=== PATIENT | female | born 1970 | race Caucasian/White ===

== ENCOUNTER 2019-06-26 08:22 | Outpatient (RCR) | payer MEDICARE, MEDICAID, SELFPAY | END 2019-07-07 00:01 | LOC: WOUND 08:22 | PROVIDERS: Family Provider Family Medicine; Visit Provider Surgery | DX: I96 Gangrene, not elsewhere classified (principal); L89.304 Pressure ulcer of unspecified buttock, stage 4 | CPT/HCPCS: 11042; 11044; 36415; 80048; 80053; 82550 ×2; 85025; 87070 ×2; 87075; 87077; 87106 ×2; 87176; 87186; 87205 ×2; 97605; G0463 ==

== ENCOUNTER 2019-07-10 08:04 | Outpatient (RCR) | payer MEDICARE, MEDICAID, SELFPAY | END 2019-08-07 23:59 | disposition home or self-care (01) | LOC: WOUND 08:04 | PROVIDERS: Family Provider Family Medicine; PCP Family Medicine; Visit Provider Surgery | DX: Z76.89 Persons encountering health services in other specified circumstances (principal) ==

== ENCOUNTER 2019-07-15 17:00 | Outpatient (CLI) | payer MEDICARE, MEDICAID, SELFPAY ==
[2019-07-15 21:48] LABS: Urine Appearance Turbid (CLEAR); Urine Color Brown (Yellow)
[2019-07-15 21:49] LABS: Add Urine Microscopic? YES; Bilirubin Urine Neg (NEGATIVE); Blood Urine 2+ (Negative); Glucose Urine UA Norm (Normal); Ketones Urine 1+ (Negative); Leukocyte Esterase Urine 2+ (Negative); Nitrate Urine Positive (Negative); Protein Urine Neg (Negative); Specific Gravity, Urine 1.015 (1.005-1.030); Sulfosalicylic Acid Urine Positive; Urobilinogen Urine Norm (Negative); pH Urine 8 (5-7)
[2019-07-15 22:11] LABS: RBC Urine 25-40 /hpf (0-2); WBC Urine 25-40 /hpf (0-5)
[2019-07-15 22:12] LABS: Add Urine Culture? Yes; Amorphous Sediment Urine 4+; Bacteria Urine 4+; Mucus Urine 1+; Squamous Epithelial Cell Urine 0-4 (0-5); Triple Phosphate Crystal Urine 40-55 /hpf
== END 2019-07-15 17:01 | disposition home or self-care (01) ==
LOC: LAB 17:02
PROVIDERS: Family Provider Family Medicine; PCP Family Medicine; Visit Provider Urology
DX: N39.0 Urinary tract infection, site not specified (principal)
CPT/HCPCS: 81003; 87077; 87086; 87186

== ENCOUNTER 2019-07-20 08:23 | Outpatient (CLI) | payer MEDICARE, MEDICAID, SELFPAY ==
--- NOTE | 2019-07-20 08:27 | CT_ITS ---
WS: [id number] CT pelvis TECHNIQUE: Contrast-enhanced CT of the pelvis with coronal and sagittal reformatted images. CLINICAL INFORMATION: PRESSURE ULCER, PAIN, OSTEOMYLITIS COMPARISON: CT 10 18,019 DLP: 1367.[address] scans at [facility] use at least one of these dose optimization techniques: automat ed exposure control; mA and/or kV adjustment per patient size (includes targeted exams where dose is matched to clinical indication); or iterative reconstruction. FINDINGS: Exam limited due to body habitus. Suprapubic catheter. Since the prior exam there appears to be interval coccyx resection at the sacral coccygeal junction w ith air and fluid along the surgical tract. Air and fluid collection in the surgical defect measuring 6.2 x 3.2 x 6.1 CCM. Distal aspect of the residual sacrum appears intact with mild irregularity whic h may be postoperative versus early osteomyelitis. Recommend interval follow-up to assess for healing . No other significant changes. Large left spigelian hernia containing multiple loops of small and lar ge bowel without obstruction. Patulous ventral abdominal wall containing loops of nonobstructed bowel . IVC filter. Grade 1 anterolisthesis L5 on S1 with bilateral spondylolysis. IMPRESSION: 1. Interval coccyx resection since the prior examination at the sacrococcygeal junction. 2. Fluid collection along the incision resection cavity containing fluid and air measuring 6.2 x 3.2 x 6.1 cm may be postoperative versus developing abscess. 3. Minimal irregularity at the remaining distal aspect of the sacrum likely postoperative. Recommend interval follow-up to assess for healing and to exclude early osteomyelitis.
[2019-07-20] MEDS: iohexol 300 mg/mL 50 mL Btl IV (08:33)
[2019-07-20] MEDS: iohexol 300 mg/mL 100 mL Btl IV (11:10)
== END 2019-07-20 08:24 | disposition home or self-care (01) ==
PROVIDERS: Family Provider Family Medicine; PCP Family Medicine; Visit Provider Surgery
DX: M86.9 Osteomyelitis, unspecified (principal); L89.90 Pressure ulcer of unspecified site, unspecified stage; R10.2 Pelvic and perineal pain
CPT/HCPCS: 72193

== ENCOUNTER 2019-08-07 08:01 | Outpatient (RCR) | payer MEDICARE, MEDICAID, SELFPAY | END 2019-08-07 23:59 | disposition home or self-care (01) | LOC: WOUND 08:01 | PROVIDERS: Family Provider Family Medicine; PCP Family Medicine; Visit Provider Surgery | DX: I96 Gangrene, not elsewhere classified (principal); L89.304 Pressure ulcer of unspecified buttock, stage 4 | CPT/HCPCS: 11043; 11044; 11046; 11047; 87070; 87077; 87176; 87186; 87205 ==

== ENCOUNTER 2019-09-04 07:59 | Outpatient (RCR) | payer MEDICARE, MEDICAID, SELFPAY | END 2019-09-05 23:59 | disposition home or self-care (01) | LOC: WOUND 07:59 | PROVIDERS: Family Provider Family Medicine; PCP Family Medicine; Visit Provider Surgery | DX: I96 Gangrene, not elsewhere classified (principal); L89.304 Pressure ulcer of unspecified buttock, stage 4 | CPT/HCPCS: 11044; 11047 ==

== ENCOUNTER 2019-10-02 08:05 | Outpatient (RCR) | payer MEDICARE, MEDICAID, SELFPAY | END 2019-10-06 23:59 | disposition home or self-care (01) | LOC: WOUND 08:05 | PROVIDERS: Family Provider Family Medicine; PCP Family Medicine; Visit Provider Surgery | DX: I96 Gangrene, not elsewhere classified (principal); L89.304 Pressure ulcer of unspecified buttock, stage 4 | CPT/HCPCS: 11044; 11047 ==

== ENCOUNTER 2019-10-30 08:03 | Outpatient (RCR) | payer MEDICARE, MEDICAID, SELFPAY | END 2019-11-05 23:59 | disposition home or self-care (01) | LOC: WOUND 08:03 | PROVIDERS: Family Provider Family Medicine; PCP Family Medicine; Visit Provider Surgery | DX: I96 Gangrene, not elsewhere classified (principal); L89.304 Pressure ulcer of unspecified buttock, stage 4 | CPT/HCPCS: 11044 ==

== ENCOUNTER 2019-11-13 08:01 | Outpatient (CLI) | payer MEDICARE, MEDICAID, SELFPAY | END 2019-11-13 08:02 | disposition home or self-care (01) | LOC: WOUND 08:02 | PROVIDERS: Family Provider Family Medicine; PCP Family Medicine; Visit Provider Surgery | DX: I96 Gangrene, not elsewhere classified (principal); L89.304 Pressure ulcer of unspecified buttock, stage 4 | CPT/HCPCS: 11043 ==

== ENCOUNTER 2019-11-18 11:10 | Outpatient (CLI) | payer MEDICARE, MEDICAID, SELFPAY ==
[2019-11-18 18:13] LABS: Anion Gap 12.9 (5-19); Blood Urea Nitrogen 14 mg/dL (6-20); Calcium 9.7 mg/dL (8.5-10.5); Carbon Dioxide 25 mmol/L (22-29); Chloride 103 mmol/L (98-107); Glomerular Filtration Rate 88.2 mL/min (90-130); Glucose 82 mg/dL (65-115); Osmolality Calculated 279 mOsm/kg (285-295); Potassium 3.9 mmol/L (3.5-5.1); Sodium 137 mmol/L (136-145)
[2019-11-18 18:14] LABS: Prealbumin 14.7 mg/dL (20-40)
== END 2019-11-18 11:11 | disposition home or self-care (01) ==
PROVIDERS: PCP Family Medicine; Visit Provider Surgery
DX: I10 Essential (primary) hypertension (principal); L89.94 Pressure ulcer of unspecified site, stage 4
CPT/HCPCS: 80048; 84134

== ENCOUNTER 2019-11-20 07:54 | Outpatient (CLI) | payer MEDICARE, MEDICAID, SELFPAY | END 2019-11-20 07:55 | disposition home or self-care (01) | LOC: WOUND 07:56 | PROVIDERS: PCP Family Medicine; Visit Provider Surgery | DX: I96 Gangrene, not elsewhere classified (principal); L89.304 Pressure ulcer of unspecified buttock, stage 4 | CPT/HCPCS: 11043 ==

== ENCOUNTER 2019-11-27 08:03 | Outpatient (CLI) | payer MEDICARE, MEDICAID, SELFPAY | END 2019-11-27 08:04 | disposition home or self-care (01) | LOC: WOUND 08:06 | PROVIDERS: PCP Family Medicine; Visit Provider Surgery | DX: I96 Gangrene, not elsewhere classified (principal); L89.304 Pressure ulcer of unspecified buttock, stage 4 | CPT/HCPCS: 11044 ==

== ENCOUNTER 2019-12-11 07:54 | Outpatient (CLI) | payer MEDICARE, MEDICAID, SELFPAY | END 2019-12-11 07:55 | disposition home or self-care (01) | LOC: WOUND 07:56 | PROVIDERS: PCP Family Medicine; Visit Provider Surgery | DX: I96 Gangrene, not elsewhere classified (principal); L89.314 Pressure ulcer of right buttock, stage 4 | CPT/HCPCS: 11044 ==

== ENCOUNTER 2019-12-18 08:22 | Outpatient (CLI) | payer MEDICARE, MEDICAID, SELFPAY | END 2019-12-18 08:23 | disposition home or self-care (01) | LOC: WOUND 08:30 | PROVIDERS: PCP Family Medicine; Visit Provider Nurse Practitioner Family | DX: I96 Gangrene, not elsewhere classified (principal); L89.304 Pressure ulcer of unspecified buttock, stage 4 | CPT/HCPCS: 11044 ==

== ENCOUNTER 2019-12-25 08:10 | Outpatient (CLI) | payer MEDICARE, MEDICAID, SELFPAY | END 2019-12-25 08:11 | disposition home or self-care (01) | LOC: WOUND 08:13 | PROVIDERS: PCP Family Medicine; Visit Provider Surgery | DX: L89.154 Pressure ulcer of sacral region, stage 4 (principal) | CPT/HCPCS: 11043 ==

== ENCOUNTER 2020-01-01 08:26 | Outpatient (CLI) | payer MEDICARE, MEDICAID, SELFPAY | END 2020-01-01 08:27 | disposition home or self-care (01) | LOC: WOUND 08:31 | PROVIDERS: PCP Family Medicine; Visit Provider Surgery | DX: I96 Gangrene, not elsewhere classified (principal); L89.304 Pressure ulcer of unspecified buttock, stage 4 | CPT/HCPCS: 11043 ==

== ENCOUNTER 2020-01-04 | Outpatient (RCR) | payer MEDICARE, MEDICAID, SELFPAY | END 2020-01-04 23:00 | disposition home or self-care (01) | LOC: SOT | PROVIDERS: PCP Family Medicine; Referring Provider Surgery; Visit Provider Surgery | DX: L89.154 Pressure ulcer of sacral region, stage 4 (principal) | CPT/HCPCS: 97166 ==

== ENCOUNTER 2020-01-15 07:58 | Outpatient (CLI) | payer MEDICARE, MEDICAID, SELFPAY | END 2020-01-15 07:59 | disposition home or self-care (01) | LOC: WOUND 08:03 | PROVIDERS: PCP Family Medicine; Visit Provider Surgery | DX: I96 Gangrene, not elsewhere classified (principal); L89.304 Pressure ulcer of unspecified buttock, stage 4 | CPT/HCPCS: 11043 ==

== ENCOUNTER 2020-01-22 07:52 | Outpatient (CLI) | payer MEDICARE, MEDICAID, SELFPAY | END 2020-01-22 07:53 | disposition home or self-care (01) | LOC: WOUND 07:52 | PROVIDERS: PCP Family Medicine; Visit Provider Surgery | DX: I96 Gangrene, not elsewhere classified (principal); L89.304 Pressure ulcer of unspecified buttock, stage 4 | CPT/HCPCS: 11043 ==

== ENCOUNTER 2020-01-29 07:55 | Outpatient (CLI) | payer MEDICARE, MEDICAID, SELFPAY | END 2020-01-29 07:56 | disposition home or self-care (01) | LOC: WOUND 08:00 | PROVIDERS: PCP Family Medicine; Visit Provider Surgery | DX: I96 Gangrene, not elsewhere classified; L89.154 Pressure ulcer of sacral region, stage 4 | CPT/HCPCS: 11043 ==

== ENCOUNTER 2020-02-12 08:08 | Outpatient (CLI) | payer MEDICARE, MEDICAID, SELFPAY | END 2020-02-12 08:09 | disposition home or self-care (01) | LOC: WOUND 08:10 | PROVIDERS: PCP Family Medicine; Visit Provider Thoracic Surgery (Cardiothoracic Vascular Surgery) | DX: L89.154 Pressure ulcer of sacral region, stage 4 (principal) | CPT/HCPCS: 11042 ==

== ENCOUNTER 2020-02-19 08:07 | Outpatient (CLI) | payer MEDICARE, MEDICAID, SELFPAY | END 2020-02-19 08:08 | disposition home or self-care (01) | LOC: WOUND 08:08 | PROVIDERS: PCP Family Medicine; Visit Provider Surgery | DX: L89.154 Pressure ulcer of sacral region, stage 4 (principal) | CPT/HCPCS: 11043 ==

== ENCOUNTER 2020-02-26 07:53 | Outpatient (CLI) | payer MEDICARE, MEDICAID, SELFPAY | END 2020-02-26 07:54 | disposition home or self-care (01) | LOC: WOUND 07:55 | PROVIDERS: PCP Family Medicine; Visit Provider Surgery | DX: L89.154 Pressure ulcer of sacral region, stage 4 (principal) | CPT/HCPCS: 11043 ==

== ENCOUNTER 2020-03-11 08:15 | Outpatient (CLI) | payer MEDICARE, MEDICAID, SELFPAY | END 2020-03-11 08:16 | disposition home or self-care (01) | LOC: WOUND 08:16 | PROVIDERS: PCP Family Medicine; Visit Provider Surgery | DX: L89.154 Pressure ulcer of sacral region, stage 4 (principal) | CPT/HCPCS: 11043 ==

== ENCOUNTER 2020-03-18 08:20 | Outpatient (CLI) | payer MEDICARE, MEDICAID, SELFPAY | END 2020-03-18 08:21 | disposition home or self-care (01) | LOC: WOUND 08:21 | PROVIDERS: PCP Family Medicine; Visit Provider Surgery | DX: L89.154 Pressure ulcer of sacral region, stage 4 (principal) | CPT/HCPCS: 11043 ==

== ENCOUNTER 2020-03-24 11:01 | Outpatient (CLI) | payer MEDICARE, MEDICAID, SELFPAY ==
--- NOTE | 2020-03-24 | CT_ITS ---
WS: [id number] CT pelvis TECHNIQUE: Contrast-enhanced CT of the pelvis with coronal and sagittal reformatted images. CLINICAL INFORMATION: PRESSURE ULCER COMPARISON: CT pelvis July 20, 2019 DLP: 766.[address] scans at [facility] use at least one of these dose optimization techniques: automat ed exposure control; mA and/or kV adjustment per patient size (includes targeted exams where dose is matched to clinical indication); or iterative reconstruction. FINDINGS: Prior postoperative changes coccyx resection at the sacrococcygeal junction. Previously described air and fluid collection along the surgical cavity is slightly smaller today but persistent. This measur es 2.8 x 5.6 x 4.1 cm with associated air and fluid most compatible with abscess. Previously this liborio sured 3.2 x 6.2 x 6.1 cm Surrounding soft tissue thickening with a thickened capsule. Sinus tract ext ending to the skin is similar in appearance. Progressed sclerosis and irregularity involving the distal aspect of the sacrum suspicious for osteom yelitis. This involves the tip of the residual sacrum. No other significant interval changes. Stable large left Spigelian hernia containing multiple loops o f bowel without obstruction. Patulous ventral abdominal wall containing loops of nonobstructed bowel unchanged. IVC filter. Grade 1 anterolisthesis L5 on S1 with bilateral spondylolysis. Normal perirect al soft tissues. Surgical clips in the pelvis. Suprapubic catheter. Fatty atrophy of the pancreas. Pr ominent common bile duct normal post cholecystectomy. CT/CT pelvis w con* [id number] IMPRESSION: 1. Prior postoperative changes resection of the coccyx at the sacrococcygeal j unction. 2. Persistent but improved fluid collection with air pockets at the incision c avity today measuring 2.8 x 5.6 x 4.1 cm slightly improved from previous. Thick ened surrounding capsule has progressed from previous. Findings likely represen t small abscess. 3. Increased sclerosis involving distal aspect of the residual sacrum suspicio us for osteomyelitis. 4. Otherwise no significant changes from previous.
[2020-03-24] MEDS: iohexol 300 mg/mL 100 mL Btl IV (11:40)
== END 2020-03-24 11:02 | disposition home or self-care (01) ==
LOC: RADWPI 11:03
PROVIDERS: PCP Family Medicine; Visit Provider Surgery
DX: L89.899 Pressure ulcer of other site, unspecified stage (principal)
CPT/HCPCS: 72193; Q9967

== ENCOUNTER 2020-03-25 08:09 | Outpatient (CLI) | payer MEDICARE, MEDICAID, SELFPAY | END 2020-03-25 08:10 | disposition home or self-care (01) | LOC: WOUND 08:10 | PROVIDERS: PCP Family Medicine; Visit Provider Nurse Practitioner Family | DX: L89.154 Pressure ulcer of sacral region, stage 4 (principal) | CPT/HCPCS: 11042 ==

== ENCOUNTER 2020-04-01 07:58 | Outpatient (CLI) | payer MEDICARE, MEDICAID, SELFPAY | END 2020-04-01 07:59 | disposition home or self-care (01) | LOC: WOUND 07:59 | PROVIDERS: PCP Family Medicine; Visit Provider Surgery | DX: L89.154 Pressure ulcer of sacral region, stage 4 (principal) | CPT/HCPCS: 11043 ==

== ENCOUNTER 2020-04-08 08:12 | Outpatient (CLI) | payer MEDICARE, MEDICAID, SELFPAY | END 2020-04-08 08:13 | disposition home or self-care (01) | LOC: WOUND 08:13 | PROVIDERS: PCP Family Medicine; Visit Provider Surgery | DX: L89.154 Pressure ulcer of sacral region, stage 4 (principal) | CPT/HCPCS: 11043 ==

== ENCOUNTER 2020-04-15 08:11 | Outpatient (CLI) | payer MEDICARE, MEDICAID, SELFPAY | END 2020-04-15 08:12 | disposition home or self-care (01) | LOC: WOUND 08:12 | PROVIDERS: PCP Family Medicine; Visit Provider Surgery | DX: L89.154 Pressure ulcer of sacral region, stage 4 (principal) | CPT/HCPCS: 11043 ==

== ENCOUNTER 2020-04-22 08:16 | Outpatient (CLI) | payer MEDICARE, MEDICAID, SELFPAY | END 2020-04-22 08:17 | disposition home or self-care (01) | LOC: WOUND 08:16 | PROVIDERS: PCP Family Medicine; Visit Provider Surgery | DX: L89.154 Pressure ulcer of sacral region, stage 4 (principal) | CPT/HCPCS: 11043 ==

== ENCOUNTER 2020-04-29 08:07 | Outpatient (CLI) | payer MEDICARE, MEDICAID, SELFPAY | END 2020-04-29 08:08 | disposition home or self-care (01) | LOC: WOUND 08:08 | PROVIDERS: PCP Family Medicine; Visit Provider Surgery | DX: L89.154 Pressure ulcer of sacral region, stage 4 (principal) | CPT/HCPCS: 11043 ==

== ENCOUNTER 2020-05-03 06:58 | Outpatient (CLI) | payer MEDICARE, MEDICAID, SELFPAY ==
--- NOTE | 2020-05-03 07:21 | CT_ITS ---
WS: [id number] CT ABDOMEN AND PELVIS WITH rectal CONTRAST HISTORY: NONHEALING ULCER TECHNIQUE: Imaging performed of the abdomen and pelvis with rectal contrast. Single phase imaging of the abdomen. Coronal and sagittal reformats are submitted. All CT scans at [facility] us e at least one of these dose optimization techniques: automated exposure control; mA and/or kV adjust ment per patient size (includes targeted exams where dose is matched to clinical indication); or iter ative reconstruction. IV CONTRAST: None Oral contrast: None. Rectal contrast given. DLP: 2717.38 mGy.cm COMPARISON: 03/24/2020 Lower thorax: Lung bases are clear. Mildly enlarged heart. Small hiatal hernia. Liver/biliary system: Again noted is the exophytic cyst from the LEFT lobe of the liver measuring 1.8 cm. Gallbladder: Prior cholecystectomy. Pancreas: Mild atrophy. Spleen: Normal. Adrenal glands: Normal. Right kidney: Normal. Left kidney: Normal. Aorta: Normal. IVC filter. Lymphadenopathy: None. Free fluid: None. GI tract: Large abdominal wall hernia on the LEFT is unchanged. LEFT lower quadrant ostomy is also pr esent but not included on this examination. No GI tract obstruction. Pelvis: Rectal contrast has been provided via rectal tube to evaluate for possible fistula between th e rectum and the sacral ulcer. There is no communication noted. No contrast extends into the sacral u lceration an abscess collection. The abscess collection measures 6.4 x 5.8 x 4.6 cm and abuts the pos terior sacrum. There is increased density within the sacrum from prior surgery and healed episodes of osteomyelitis. As compared to the most recent examination there has been no interval change. Bones: Sclerotic changes in the remaining sacrum from healed osteomyelitis. CT/CT abdomen pelvis w con* [id number] IMPRESSION: 1. No fistulous communication between the rectum and the sacral decubitus ulce r. 2. Soft tissue ulceration over the posterior sacrum measures 6.4 x 5.8 x 4.6 c m without obvious progression since 03/24/2020. 3. Sclerotic changes in the residual sacrum from healed osteomyelitis.
[2020-05-03] MEDS: iohexol 300 mg/mL 100 mL Btl XX (09:35)
== END 2020-05-03 06:59 | disposition home or self-care (01) ==
LOC: RAD 07:02
PROVIDERS: PCP Family Medicine; Visit Provider Surgery
DX: N30.20 Other chronic cystitis without hematuria (principal); M86.60 Other chronic osteomyelitis, unspecified site; L89.159 Pressure ulcer of sacral region, unspecified stage
CPT/HCPCS: 74177

== ENCOUNTER 2020-05-06 08:10 | Outpatient (CLI) | payer MEDICARE, MEDICAID, SELFPAY | END 2020-05-06 08:11 | disposition home or self-care (01) | LOC: WOUND 08:11 | PROVIDERS: PCP Family Medicine; Visit Provider Surgery | DX: L89.154 Pressure ulcer of sacral region, stage 4 (principal) | CPT/HCPCS: 11043 ==

== ENCOUNTER 2020-05-20 08:10 | Outpatient (CLI) | payer MEDICARE, MEDICAID, SELFPAY | END 2020-05-20 08:11 | disposition home or self-care (01) | LOC: WOUND 08:10 | PROVIDERS: PCP Family Medicine; Visit Provider Surgery | DX: L89.154 Pressure ulcer of sacral region, stage 4 (principal) | CPT/HCPCS: 11043 ==

== ENCOUNTER 2020-05-27 08:19 | Outpatient (CLI) | payer MEDICARE, MEDICAID, SELFPAY | END 2020-05-27 08:20 | disposition home or self-care (01) | LOC: WOUND 08:20 | PROVIDERS: PCP Family Medicine; Visit Provider Surgery | DX: L89.154 Pressure ulcer of sacral region, stage 4 (principal) | CPT/HCPCS: 11043 ==

== ENCOUNTER 2020-06-07 09:20 | Outpatient (CLI) | payer MEDICARE, MEDICAID, SELFPAY ==
[2020-06-07] MEDS: iohexol 300 mg/mL 100 mL Btl IV (09:47)
--- NOTE | 2020-06-07 10:00 | CT_ITS ---
WS: [id number] CT pelvis TECHNIQUE: Contrast-enhanced CT of the pelvis with coronal and sagittal reformatted images. CLINICAL INFORMATION: chronic osteomyelitis COMPARISON: Multiple prior examinations including CT abdomen pelvis June 03, 2020, CT pelvis Sept and July 2019. DLP: 1194.[address] scans at [facility] use at least one of these dose optimization techniques: automat ed exposure control; mA and/or kV adjustment per patient size (includes targeted exams where dose is matched to clinical indication); or iterative reconstruction. FINDINGS: Prior postoperative changes coccyx resection at the sacrococcygeal junction. Previously described air and fluid collection along the surgical cavity is slightly smaller today but persistent. This measur es 3.1 x 5.1 x 5.6 cm. Previously this measured 6.4 x 5.8 x 4.6 cm. Surrounding soft tissue thickenin g with a thickened capsule. Sclerotic changes within the sacral tip from chronic osteomyelitis. This is similar in appearance to the prior exam. No other significant interval changes. Stable large left Spigelian hernia containing multiple loops o f bowel without obstruction. Patulous ventral abdominal wall containing loops of nonobstructed bowel unchanged. IVC filter. Grade 1 anterolisthesis L5 on S1 with bilateral spondylolysis. Normal perirect al soft tissues. Surgical clips in the pelvis. Suprapubic catheter. Fatty atrophy of the pancreas. Pr ominent common bile duct normal post cholecystectomy. CT/CT pelvis w con* [id number] IMPRESSION: 1. Soft tissue ulceration consistent with chronic abscess along the posterior sacrum is smaller today measuring 3.1 x 5.1 x 5.6 cm. 2. Stable sclerosis in the tip of the sacrum consistent with chronic osteomye litis. 3. No other significant interval changes.
== END 2020-06-07 09:21 | disposition home or self-care (01) ==
PROVIDERS: PCP Family Medicine; Visit Provider Student in an Organized Health Care Education/Training Program
DX: M86.60 Other chronic osteomyelitis, unspecified site (principal); L98.499 Non-pressure chronic ulcer of skin of other sites with unspecified severity
CPT/HCPCS: 72193

== ENCOUNTER 2020-06-10 08:11 | Outpatient (CLI) | payer MEDICARE, MEDICAID, SELFPAY | END 2020-06-10 08:12 | disposition home or self-care (01) | LOC: WOUND 08:12 | PROVIDERS: PCP Family Medicine; Visit Provider Surgery | DX: L89.154 Pressure ulcer of sacral region, stage 4 (principal) | CPT/HCPCS: 11043 ==

== ENCOUNTER 2020-06-17 08:16 | Outpatient (CLI) | payer MEDICARE, MEDICAID, SELFPAY | END 2020-06-17 08:17 | disposition home or self-care (01) | LOC: WOUND 08:17 | PROVIDERS: PCP Family Medicine; Visit Provider Surgery | DX: L89.154 Pressure ulcer of sacral region, stage 4 (principal) | CPT/HCPCS: 11043 ==

== ENCOUNTER 2020-06-24 08:24 | Outpatient (CLI) | payer MEDICARE, MEDICAID, SELFPAY | END 2020-06-24 08:25 | disposition home or self-care (01) | LOC: WOUND 08:25 | PROVIDERS: PCP Family Medicine; Visit Provider Surgery | DX: L89.154 Pressure ulcer of sacral region, stage 4 (principal) | CPT/HCPCS: 11043 ==

== ENCOUNTER 2020-07-15 07:58 | Outpatient (CLI) | payer MEDICARE, MEDICAID, SELFPAY | END 2020-07-15 07:59 | disposition home or self-care (01) | LOC: WOUND 08:00 | PROVIDERS: PCP Family Medicine; Visit Provider Surgery | DX: L89.154 Pressure ulcer of sacral region, stage 4 (principal) | CPT/HCPCS: 11043 ==

== ENCOUNTER 2020-07-22 08:05 | Outpatient (CLI) | payer MEDICARE, MEDICAID, SELFPAY | END 2020-07-22 08:06 | disposition home or self-care (01) | LOC: WOUND 08:06 | PROVIDERS: PCP Family Medicine; Visit Provider Surgery | DX: L89.154 Pressure ulcer of sacral region, stage 4 (principal) | CPT/HCPCS: 11043 ==

== ENCOUNTER 2020-07-29 08:02 | Outpatient (CLI) | payer MEDICARE, MEDICAID, SELFPAY | END 2020-07-29 08:03 | disposition home or self-care (01) | LOC: WOUND 08:04 | PROVIDERS: PCP Family Medicine; Visit Provider Surgery | DX: I96 Gangrene, not elsewhere classified (principal); L89.154 Pressure ulcer of sacral region, stage 4 | CPT/HCPCS: 11043 ==

== ENCOUNTER 2020-07-31 09:40 | Emergency (ER) | payer MEDICARE, MEDICAID, SELFPAY ==
[2020-07-31 09:48] VITALS: BP 138/81; PULSE 84; RESP 18; TEMP 36.7; O2SAT 98; BMI 49.6
--- NOTE | 2020-07-31 10:05 | ED_ITS ---
HPI - Extremity Problem General: Chief complaint: Extremity Injury, Lower Stated complaint: R foot Lac Time Seen by Provider: 07/31/20 09:46 Limitations: other (Patient is wheelchair-bound. She lacerated the bottom of her right foot while transferring this morning.) History of Present Illness: Associated symptoms: Deny chest pain or fever(s) Review of Systems General: Reports: 10 or more systems reviewed and unremarkable except in HPI and below Const: Denies: fever(s) ENMT: Denies: throat pain Card: Denies: chest pain Resp: Denies: dyspnea GI: Denies: abdominal pain Skin/Breast: Reports: other (Right foot laceration) [facility] ED PFSH: Medical History Chronic cystitis Neurogenic bladder Surgical History S/P section Suprapubic catheter Family History Family/Other Diabetes Cancer CAD (coronary artery disease) Social History Smoking and tobacco status: never smoked Alcohol intake: never Lives independently: Yes Marital status: Current occupational status: disabled History of recent travel: No Physical Exam Const: COMMON NORMALS: no acute distress Neck/C-Spine: COMMON NORMALS: no JVD Chest: COMMONS NORMALS: normal inspection of the chest, normal palpation of entire chest wall, normal inspection of the breasts and normal palpation of the breasts Breast/axilla inspection: Yes normal inspection of the breasts BREAST/AXILLA PALPATION: Yes normal palpation of the breasts Resp: COMMON NORMALS: normal respiratory effort, No retractions, No use of accessory muscles, clear to auscultation bilaterally and percussion normal AUSCULTATION: clear to auscultation bilaterally PERCUSSION: percussion normal Cardio: COMMON NORMALS: no JVD, regular rate, regular rhythm, S1 normal heart sound present, S2 normal heart sound present, No gallops present (Cardio), No clicks present (Cardio), No murmurs present (Cardio), No rub (Cardio) and Peripheral pulses 2+ throughout RATE: regular rate RHYTHM: regular rhythm HEART SOUNDS: S1 normal heart sound present and S2 normal heart sound present PERIPHERAL PULSES: Peripheral pulses 2+ throughout Skin: WOUNDS: Yes wounds noted (Patient with lacerations underneath the right third fourth and fifth digits) Course Vital Signs: Vital signs: Vital Signs Temperature 98.0 F 07/31/20 09:48 Pulse Rate 84 07/31/20 09:48 Respiratory Rate 18 07/31/20 09:48 Blood Pressure 138/81 07/31/20 09:48 Pulse Oximetry 98 07/31/20 09:48 MDM - Extremity (Nontraumatic) MDM Narrative: Medical decision making narrative: Patient with 1 cm lacerations underneath the third fourth and fifth right toes. Lacerations up under the plantar flexor surface of each toe. No active bleeding. Laceration was cleaned and closed with Dermabond. Tetanus is up-to-date. Discharge Plan Discharge Condition: Stable Prescriptions: No Action gabapentin 600 mg tablet 600 mg PO DAILY RF: 0 baclofen 20 mg tablet 20 mg PO DAILY RF: 0 Lumigan 0.01 % drops 1 drop ophthalmic (eye) DAILY RF: 0 docusate sodium 100 mg capsule 100 mg PO DAILY RF: 0 ferrous sulfate 142 mg (45 mg iron) tablet extended release 142 mg PO DAILY RF: 0 furosemide 20 mg tablet 10 mg PO QAM RF: 0 omeprazole 40 mg capsule,delayed release(DR/EC) 40 mg PO DAILY RF: 0 potassium chloride 10 mEq capsule, extended release 10 meq PO DAILY RF: 0 venlafaxine 150 mg capsule,extended release 24hr 150 mg PO DAILY RF: 0 warfarin 5 mg tablet 5 mg PO DAILY RF: 0 ciprofloxacin HCl 500 mg tablet 500 mg PO BID Qty: 28 RF: 0 fluconazole 150 mg tablet 150 mg PO Q3D Qty: 2 RF: 0 Discharge Orders: Discharge ED (Routine); Ordered 07/31/20 Ordered By: Omero Parker Referrals: Riky Boland Jr, MD [Primary Care Provider] - Discharge Diet: Usual diet Discharge Activity: Resume usual activity Coding Level of Care Code 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
--- NOTE | 2020-07-31 10:17 | PC.NURSE ---
Dermabond applied to the laceration on the right foot/toes by Dr. Parker. Dressing of telfa and kerlix applied and secured at this time by this nurse. Pt tolerated well.
[2020-07-31 10:23] VITALS: BP 142/78; PULSE 81; O2SAT 96
== END 2020-07-31 10:20 | disposition home or self-care (01) ==
PROVIDERS: Emergency Provider Emergency Medicine; PCP Family Medicine
DX: S91.114A Laceration without foreign body of right lesser toe(s) without damage to nail, initial encounter (principal); Z79.01 Long term (current) use of anticoagulants; W26.9XXA Contact with unspecified sharp object(s), initial encounter
CPT/HCPCS: 12001; 12345; 99281; 99282

== ENCOUNTER 2020-08-02 14:46 | Outpatient (CLI) | payer MEDICARE, MEDICAID, SELFPAY | END 2020-08-02 14:47 | disposition home or self-care (01) | LOC: WOUND 14:47 | PROVIDERS: PCP Family Medicine; Visit Provider Thoracic Surgery (Cardiothoracic Vascular Surgery) | DX: S91.124A Laceration with foreign body of right lesser toe(s) without damage to nail, initial encounter (principal); X58.XXXA Exposure to other specified factors, initial encounter | CPT/HCPCS: 11042 ==

== ENCOUNTER 2020-08-05 08:14 | Outpatient (CLI) | payer MEDICARE, MEDICAID, SELFPAY | END 2020-08-05 08:15 | disposition home or self-care (01) | PROVIDERS: PCP Family Medicine; Visit Provider Surgery | DX: L89.154 Pressure ulcer of sacral region, stage 4 (principal); S91.124A Laceration with foreign body of right lesser toe(s) without damage to nail, initial encounter; X58.XXXA Exposure to other specified factors, initial encounter | CPT/HCPCS: 11043 ==

== ENCOUNTER 2020-08-05 10:38 | Outpatient (CLI) | payer MEDICARE, MEDICAID, SELFPAY ==
--- NOTE | 2020-08-05 10:50 | XR_ITS ---
WS: [id number] Exam: XR foot RT min 3V* [id number] Date/Time of Exam: 08/05/2020 11:00 AM Reason For Exam: PAIN/REDNESS/NONHEALING ULCER No fracture or dislocation noted. Mild soft tissue swelling the third toe. No sign of bone destructio n. Marked osteopenia of the foot. Degenerative changes in the IP, first MP and midfoot joints. No sof t tissue foreign bodies. Plantar heel spur. XR/XR foot RT min 3V* [id number] IMPRESSION: 1. No acute fracture or bone destruction. Mild soft tissue swelling of the thir d toe. 2. Degenerative changes. Marked osteopenia.
== END 2020-08-05 10:39 | disposition home or self-care (01) ==
PROVIDERS: PCP Family Medicine; Visit Provider Surgery
DX: M79.671 Pain in right foot (principal); L53.9 Erythematous condition, unspecified; M79.89 Other specified soft tissue disorders; L97.519 Non-pressure chronic ulcer of other part of right foot with unspecified severity
CPT/HCPCS: 73630

== ENCOUNTER 2020-08-12 08:22 | Outpatient (CLI) | payer MEDICARE, MEDICAID, SELFPAY | END 2020-08-12 08:23 | disposition home or self-care (01) | LOC: WOUND 08:23 | PROVIDERS: PCP Family Medicine; Visit Provider Surgery | DX: I96 Gangrene, not elsewhere classified (principal); L89.154 Pressure ulcer of sacral region, stage 4; S91.124A Laceration with foreign body of right lesser toe(s) without damage to nail, initial encounter; X58.XXXA Exposure to other specified factors, initial encounter | CPT/HCPCS: 11043 ==

== ENCOUNTER 2020-08-26 08:09 | Outpatient (CLI) | payer MEDICARE, MEDICAID, SELFPAY | END 2020-08-26 08:10 | disposition home or self-care (01) | LOC: WOUND 08:10 | PROVIDERS: PCP Family Medicine; Visit Provider Surgery | DX: I96 Gangrene, not elsewhere classified (principal); L89.154 Pressure ulcer of sacral region, stage 4 | CPT/HCPCS: 11043 ==

== ENCOUNTER 2020-09-02 08:21 | Outpatient (CLI) | payer MEDICARE, MEDICAID, SELFPAY | END 2020-09-02 08:22 | disposition home or self-care (01) | LOC: WOUND 08:22 | PROVIDERS: PCP Family Medicine; Visit Provider Surgery | DX: I96 Gangrene, not elsewhere classified (principal); L89.154 Pressure ulcer of sacral region, stage 4 | CPT/HCPCS: 11043 ==

== ENCOUNTER 2020-09-16 07:57 | Outpatient (CLI) | payer MEDICARE, MEDICAID, SELFPAY | END 2020-09-16 07:58 | disposition home or self-care (01) | LOC: WOUND 07:58 | PROVIDERS: PCP Family Medicine; Visit Provider Surgery | DX: L89.314 Pressure ulcer of right buttock, stage 4 (principal) | CPT/HCPCS: 11042 ==

== ENCOUNTER 2020-09-23 07:52 | Outpatient (CLI) | payer MEDICARE, MEDICAID, SELFPAY | END 2020-09-23 07:53 | disposition home or self-care (01) | LOC: WOUND 07:53 | PROVIDERS: PCP Family Medicine; Visit Provider Nurse Practitioner Family | DX: L89.154 Pressure ulcer of sacral region, stage 4 (principal) | CPT/HCPCS: 11042 ==

== ENCOUNTER 2020-09-30 08:00 | Outpatient (CLI) | payer MEDICARE, MEDICAID, SELFPAY | END 2020-09-30 08:01 | disposition home or self-care (01) | LOC: WOUND 08:01 | PROVIDERS: PCP Family Medicine; Visit Provider Surgery | DX: I96 Gangrene, not elsewhere classified (principal); L89.314 Pressure ulcer of right buttock, stage 4 | CPT/HCPCS: 11043 ==

== ENCOUNTER → 2020-10-05 15:57 | Outpatient (BNVA) | payer MEDICARE, MEDICAID, SELFPAY | PROVIDERS: PCP Family Medicine; Visit Provider Surgery | DX: Z13.9 Encounter for screening, unspecified (principal); Z20.822 Contact with and (suspected) exposure to COVID-19 | CPT/HCPCS: 87635 ==

== ENCOUNTER 2020-10-07 08:00 | Outpatient (CLI) | payer MEDICARE, MEDICAID, SELFPAY | END 2020-10-07 08:01 | disposition home or self-care (01) | LOC: WOUND 08:03 | PROVIDERS: PCP Family Medicine; Visit Provider Surgery | DX: I96 Gangrene, not elsewhere classified (principal); L89.314 Pressure ulcer of right buttock, stage 4 | CPT/HCPCS: 11043 ==

== ENCOUNTER 2020-10-10 07:32 | Day surgery (SDC) | payer MEDICARE, MEDICAID, SELFPAY ==
[2020-10-07 10:47] VITALS: BMI 50.5
[2020-10-10] VITALS (9 sets, daily range): BP systolic 84–140; BP diastolic 55–87; PULSE 60–79; RESP 15–20; TEMP 36.6–36.8; O2SAT 94–99
--- NOTE | 2020-10-10 08:11 | W.PM.OPSUD ---
Surgery/Procedure H&P Update DATE OF PROCEDURE: October 10, 2020 DATE H&P PERFORMED: 09/30/20 H&P UPDATE INFORMATION: I have reviewed H&P completed within last 30 days, I have examined patient prior to procedure and No changes to prior documentation PREOP DIAGNOSIS: Chronic lower back wound PRIMARY INDICATION FOR PROCEDURE: THE SAME PLANNED PROCEDURE: Operation Date: 10/10/20 09:15 Proposed Procedures p Debridement of lower back wound and application of skin sub 63693 [id number] Q4100 E11.622 L89.304(Not Applicable) - Matty Drummond MD
[2020-10-10] MEDS: sodium chloride 0.9% 1,000 ML 30 ML IV (08:12)
[2020-10-10] MEDS: acetaminophen 1,000 MG/100 ML PIGGYBACK 400 MG IV (08:25)
[2020-10-10 08:58] LABS: Erythrocyte Sedimentation Rate 55 mm/hr (0-15)
--- NOTE | 2020-10-10 09:05 | ANES.PREANE2 ---
Pre-Anesthetic Assessment Pre-Anesthetic Assessment: Height/Weight: Height 1.6 m Weight 129.274 kg Pulse Resp BP Pulse Ox 79 18 140/77 94 10/10/20 07:58 10/10/20 07:58 10/10/20 07:58 10/10/20 07:58 Preop Diagnosis: Chronic lower back wound Proposed Procedure: Operation Date: 10/10/20 09:15 Proposed Procedures p Debridement of lower back wound and application of skin sub 35349 [id number] 43279 Q4100 E11.622 L89.304(Not Applicable) - Matty Drummond MD Familial anesthetic complications: None Was Beta Colette taken within 24 hours: N/A Was Clonidine taken within 24 hours: N/A Last intake: Intake Last Liquid Date 10/09/20 Last Liquid Time 23:30 Last Solid Date 10/09/20 Last Solid Time 20:00 Social: Social History: No alcohol and No tobacco Exam: Pre-Anes Outpt Exam: alert, oriented x 3, clear to auscultation bilaterally and regular rate & rhythm Airway: Cervical ROM: WNL MP: 4 Dentition: Other (missing) Pulmonary: Pulmonary: Sleep apnea CV/HEM: CV/HEM: DVT (IVC filter) GI: GI: GERD Metabolic: Metabolic: Morbid obesity Neuropsych: Comments: T4 paraplegia Anesthetic Plan: ASA status: 3 Anesthesia: MAC Risk of > 500 ml blood loss (7ml/kg in children): No Meds/Allergies Current Medications: Current Medications Generic Name Dose Route Start Last Admin Trade Name Freq PRN Reason Stop Dose Admin Sodium Chloride 1,000 mls @ 30 ml s/hr 10/10/20 07:45 10/10/20 08:12 Sodium Chloride 0.9% IV 10/11/20 07:44 30 mls/hr .Q24H CARLOS Administration PFSH Anesthesia PFSH: Medical History Chronic cystitis Neurogenic bladder Surgical History S/P section Suprapubic catheter Family History Family/Other Diabetes Cancer CAD (coronary artery disease) Social History Smoking and tobacco status: never smoked Alcohol intake: never Lives independently: Yes Marital status: Current occupational status: disabled History of recent travel: No Data Anesthesia Other Labs: Laboratory Results - last 48 hr 10/10/20 07:55 ESR 55 H Cardiac Studies: No Data to Display
[2020-10-10] MEDS: clindamycin 900 MG/50 ML PREMIX 100 MG IV (10:40)
--- NOTE | 2020-10-10 11:13 | P.OP_ITS ---
Operative Report Date of procedure: October 10, 2020 Pre-op Diagnosis: Chronic lower back wound Post-op diagnosis: same Post-op Findings: PreDebridement measurements 4.5 x 2 x [address] to the muscle and fascia Post debridement measurements 4.5 x 2.4 x 4.[address] to the muscle and fascial layer Procedure Done: Sharp debridement of lower back wound and application of skin substitutes form of amnio fill 3 g(ALLograft) Implants: Amnio fill 3 g AF 10?P2 [id number] Expiration date 2025-06-07 Surgeon: Matty Drummond Sewer And Cutter Finger Buff Material: Surgical maik Holbrook and medical student Dinorah [facility] nurse Sariah Kaye Anesthesia: MAC (Gina Roberts) Estimated blood loss (mL): 15 Complications: No immediate complications Condition: stable Disposition: same day Brief History: Chronic lower back wound Patient had nonhealing wound and has been undergoing weekly debridement at the wound care center for many months with slow progression of healing that required further intervention and using allografts in the form of skin substitutes in the form of amnio fill to expedite the wound healing process and promote healing. H&P and informed consent per chart Procedure: After identifying the patient holding area, the Lower back wound/Sacr al was marked before the procedure by myself, patient was then taken to the operative suite, was placed in supine position then left lateral position where all pressure points were padded and patient was secured to the bed.IV antibiotics were given per protocol,IV propofol was infused by the anesthesia provider, prep and drape of the ming-wound region was done under the usual sterile technique.After dressing and packing was removed by me. Time-out was done verifying the patient's name/date of /planned procedure and destination after the procedure, all were in agreement. Sharp debridement in the form of curette it was done to the wound cavity all the way to the musculofascial layer and some indentation and undermining was appreciated towards 3 o'clock position incision. Wound measurements; PreDebridement measurements 4.5 x 2 x [address] to the muscle and fascia Post debridement measurements 4.5 x 2.4 x 4.[address] to the muscle and fascial layer Debridement all the way to the healthier musculofascial layer Copious and through irrigation of the wound was done with VASH solution two liters,followed by appropriate hemostasis,Placement of 3 g of allograft in the form of paste and powder form to fill the wound cavity was done after appropriate hemostasis was achieved Following that a piece of Adaptic was placed then Benzoin and Steri-Strips followed by fluffs and ABDs then surgical pants. Patient tolerated the procedure well, count of instruments,needles and sponges were completed at the end of the procedure.Patient was then taken to the recovery area in stable condition. I was present for the whole entire procedure
--- NOTE | 2020-10-10 11:34 | SUR.PHASEI ---
PT CONTINUES TO SLEEP ON LT SIDE WITH GOOD RESP NOTED NASAL TRUMPHET IN PLACE TO RT NARE, PT VSS. IV PATENT PT VERY OBESE PADDED AROUND RAIL FOR PT COMFORT.
--- NOTE | 2020-10-10 11:37 | SUR.PHASEI ---
PT AWAKE ALERT WITH GOOD RESP NASAL TRUMPHET OUT PT VERBALIZED NO PAIN OR NAUSEA, PT ON RA TRIAL. VSS.
--- NOTE | 2020-10-10 17:49 | ANE.PACU2 ---
Inpatient post-anesthesia follow up: Airway intact: Yes Vital signs: Temperature 98.3 F Pulse Rate 64 Respiratory Rate 18 Blood Pressure 134/87 Pulse Oximetry 95 Oxygen Delivery Me thod Room Air Oxygen Flow Rate 6 Fraction of Inspir ed Oxygen Hydration adequate: Yes Nausea and vomiting: No Pain level: 2 Mental status: Baseline
== END 2020-10-10 12:30 | disposition home or self-care (01) ==
PROVIDERS: Student in an Organized Health Care Education/Training Program; PCP Family Medicine; Visit Provider Surgery
PROC: (CPT 11043; principal; 2020-10-10 09:15)
DX: L89.304 Pressure ulcer of unspecified buttock, stage 4 (principal); E11.622 Type 2 diabetes mellitus with other skin ulcer; G47.30 Sleep apnea, unspecified; Z86.718 Personal history of other venous thrombosis and embolism; E66.01 Morbid (severe) obesity due to excess calories; Z68.43 Body mass index [BMI] 50.0-59.9, adult; G82.20 Paraplegia, unspecified
CPT/HCPCS: 11043; 36415; 85651; 96365; J2250; J2704; J3490; J7030; Q4100

== ENCOUNTER 2020-10-14 08:02 | Outpatient (CLI) | payer MEDICARE, MEDICAID, SELFPAY | END 2020-10-14 08:03 | disposition home or self-care (01) | PROVIDERS: PCP Family Medicine; Visit Provider Surgery | DX: L89.154 Pressure ulcer of sacral region, stage 4 (principal) | CPT/HCPCS: 11043 ==

== ENCOUNTER 2020-10-20 09:06 | Outpatient (CLI) | payer MEDICARE, MEDICAID, SELFPAY | END 2020-10-20 09:07 | disposition home or self-care (01) | LOC: WOUND 09:07 | PROVIDERS: PCP Family Medicine; Visit Provider Nurse Practitioner Family | DX: I96 Gangrene, not elsewhere classified (principal); L89.154 Pressure ulcer of sacral region, stage 4 | CPT/HCPCS: 11042; 87070; 87077; 87186 ==

== ENCOUNTER 2020-10-20 12:31 | Emergency (ER) | payer MEDICARE, MEDICAID, SELFPAY ==
[2020-10-20 12:36] VITALS: BP 162/80; PULSE 79; RESP 18; TEMP 36.6; O2SAT 98; BMI 50.5
--- NOTE | 2020-10-20 14:00 | W.ED.WOUNDLC ---
HPI - Wound/Laceration General: Chief Complaint: Wound/Laceration Stated Complaint: REAR PAIN, POSS INFECTION IN BLOOD Time Seen by Provider: 10/20/20 13:56 History of Present Illness: HPI narrative: Patient sent here by the wound clinic for rule out blood infection. Patient's not had any fever had recent surgery cleanout wound in her sacral area. Patient's had moderate drainage as has been evaluated by the wound clinic. Wound was not packed today but dressing change patient states pain is worse this past week. Does not have adequate pain control at home. Onset (ago): week(s) Location: back Associated symptoms: Denies chills, fever(s), nausea or vomiting Review of Systems Const: Denies: fever(s), chills or body aches Eyes: Denies: change in vision or blurry vision ENMT: Denies: throat pain or nasal congestion Card: Denies: chest pain or dyspnea on exertion Resp: Denies: dyspnea, productive cough or non-productive cough GI: Denies: abdominal pain, nausea or vomiting Musc: Reports: back pain (Since recent surgery. Has a history of osteomyelitis. And sacrum.); Denies: extremity pain Skin/Breast: Denies: rash Neuro: Denies: headache(s) Psych: Denies: anxiety or depression Gilbert/Lymph: Denies: easy bruising PFSH ED PFSH: Medical History (Updated 10/20/20 @ 15:45 by BHAVYA Garcia) Chronic cystitis Neurogenic bladder Surgical History S/P section Suprapubic catheter Family History Family/Other Diabetes Cancer CAD (coronary artery disease) Social History Smoking and tobacco status: never smoked Alcohol intake: never Lives independently: Yes Marital status: Current occupational status: disabled History of recent travel: No Physical Exam Const: COMMON NORMALS: no acute distress, average body habitus and patient oriented x3 HENMT: COMMON NORMALS: normocephalic HEAD & SCALP: normal to inspection and normocephalic FACE & SINUS: normal facial exam Eye: COMMON NORMALS: conjunctivae normal GENERAL EYE: appearance normal, both eyes and all related structures CONJUNCTIVA: Yes conjunctivae normal Neck/C-Spine: COMMON NORMALS: no JVD Chest: COMMONS NORMALS: normal inspection of the chest Resp: COMMON NORMALS: normal respiratory effort and clear to auscultation bilaterally AUSCULTATION: clear to auscultation bilaterally Cardio: COMMON NORMALS: no JVD, regular rate and regular rhythm RATE: regular rate RHYTHM: regular rhythm GI: COMMON NORMALS: Normal to inspection, nondistended, normoactive bowel sounds present Extremity: COMMON NORMALS: normal to inspection and full ROM Neuro: COMMON NORMALS: patient oriented x3 Skin: NARRATIVE SKIN EXAM: Dressings removed wound was evaluated no evidence of erythema foul odor are increased drainage to the sacral area. Course Vital Signs: Vital signs: Vital Signs Temperature 97.8 F 10/20/20 12:36 Pulse Rate 84 10/20/20 14:13 Respiratory Rate 18 10/20/20 14:13 Blood Pressure 156/82 10/20/20 14:13 Pulse Oximetry 98 10/20/20 14:13 MDM - Wound/Laceration MDM Narrative: Medical decision making narrative: Patient's labs were negative for any signs of infection or abnormalities. Pain control help patient immensely with her pain. Patient will follow up Dr. Drummond concerning her back pain and keep appointment with wound clinic. Lab Data: Labs: Lab Results 10/20/20 10/20/20 Range/Units 15:13 15:13 WBC 6.3 (4.0-10.0) 10^3/ uL RBC 4.24 (4.1-5.3) 10^6/u L Hgb 12.3 (11.5-15.3) g/dL Hct 39.9 (37.0-47.0) % MCV 94.1 (81-99) fL MCH 29.0 (28.0-34.0) pg MCHC 30.8 (30.0-36.0) g/dL RDW 13.5 (12.1-15.1) % Plt Count 242 (130-400) 10^3/c mm MPV 10.3 (7.4-10.4) fL Neut % (Auto) 65.6 % Lymph % (Auto) 22.5 % [place] % (Auto) 7.1 % Eos % (Auto) 4.1 % Baso % (Auto) 0.5 % Neut # (Auto) 4.15 (1.8-7.7) 10^3/u L Lymph # (Auto) 1.4 (0.8-4.8) 10^3/u L [place] # (Auto) 0.5 (0.2-0.9) 10^3/u L Eos # (Auto) 0.3 (0.0-0.8) 10^3/u L Baso # (Auto) 0.0 (0.0-0.1) 10^3/u L Nucleated RBC % (a uto) 0 % Nucleated RBCs # 0.0 /100WBC Sodium 137 (136-145) mmol/L Potassium 3.8 (3.5-5.1) mmol/L Chloride 102 (98-107) mmol/L Carbon Dioxide 27 (22-29) mmol/L Anion Gap 11.8 (5-19) BUN 15 (6-20) mg/dL Creatinine 0.7 (0.5-0.9) mg/dL GFR Calculation 87.9 L (90-130) mL/min Glucose 96 (65-115) mg/dL Calculated Osmolal ity 285 (285-295) mOsm/k g Calcium 8.6 (8.5-10.5) mg/dL Discharge Plan Discharge Patient Disposition: Home Clinical Impression: Back pain Qualifiers: Back pain location: low back pain Chronicity: chronic Back pain laterality: midline Sciatica presence: without sciatica Qualified Code(s): M54.5 - Low back pain Condition: Stable Prescriptions: New hydrocodone-acetaminophen 5-325 mg tablet 1 tab PO TID PRN (Reason: pain) Qty: 20 RF: 0 No Action gabapentin 600 mg tablet 600 mg PO DAILY RF: 0 baclofen 20 mg tablet 20 mg PO DAILY RF: 0 Lumigan 0.01 % drops 1 drop ophthalmic (eye) DAILY RF: 0 docusate sodium 100 mg capsule 100 mg PO DAILY RF: 0 furosemide 20 mg tablet 10 mg PO QAM RF: 0 omeprazole 40 mg capsule,delayed release(DR/EC) 40 mg PO DAILY RF: 0 potassium chloride 10 mEq capsule, extended release 10 meq PO DAILY RF: 0 venlafaxine 150 mg capsule,extended release 24hr 150 mg PO DAILY RF: 0 warfarin 5 mg tablet 5 mg PO DAILY RF: 0 Hold Instructions: Resume on 10/13/20. methenamine hippurate 1 gram tablet 1 g PO BID Qty: 60 RF: 12 Discharge Orders: Discharge ED (Routine); Ordered 10/20/20 Ordered By: Torsten Engel Referrals: Jennifer Ordaz MD [Primary Care Provider] - Discharge Diet: Usual diet Discharge Activity: Increase activity as tolerated Patient Instructions: Opioid Safety Activity Restrictions/Additional Instructions: Medicine as directed. Follow-up with your surgeon tomorrow are first next week. Keep appointment wound clinic. Coding Level of Care Code ED Metal Plater for Chg Fwd Exam Comprehensive
[2020-10-20] MEDS: HYDROcodone-acetaminophen 7.5-325 mg Tablet 1 TAB PO (14:10)
[2020-10-20 14:13] VITALS: BP 156/82; PULSE 84; RESP 18; O2SAT 98
[2020-10-20 15:20] LABS: Basophils % 0.5 %; Eosinophils # 0.3 10^3/uL (0.0-0.8); Eosinophils % 4.1 %; Hematocrit 39.9 % (37.0-47.0); Hemoglobin 12.3 g/dL (11.5-15.3); Lymphocytes # 1.4 10^3/uL (0.8-4.8); Lymphocytes % 22.5 %; Mean Corpuscular HGB Conc 30.8 g/dL (30.0-36.0); Mean Corpuscular Volume 94.1 fL (81-99); Mean Platelet Volume 10.3 fL (7.4-10.4); Monocytes # 0.5 10^3/uL (0.2-0.9); Monocytes % 7.1 %; Neutrophils # 4.15 10^3/uL (1.8-7.7); Neutrophils % 65.6 %; Nucleated Red Blood Cells % 0 %; Platelet Count 242 10^3/cmm (130-400); Red Blood Count 4.24 10^6/uL (4.1-5.3); Red Cell Distribution Width 13.5 % (12.1-15.1); White Blood Count 6.3 10^3/uL (4.0-10.0)
[2020-10-20 15:39] LABS: Anion Gap 11.8 (5-19); Blood Urea Nitrogen 15 mg/dL (6-20); Calcium 8.6 mg/dL (8.5-10.5); Carbon Dioxide 27 mmol/L (22-29); Chloride 102 mmol/L (98-107); Glomerular Filtration Rate 87.9 mL/min (90-130); Glucose 96 mg/dL (65-115); Osmolality Calculated 285 mOsm/kg (285-295); Potassium 3.8 mmol/L (3.5-5.1); Sodium 137 mmol/L (136-145)
== END 2020-10-20 16:06 | disposition home or self-care (01) ==
PROVIDERS: Emergency Provider Nurse Practitioner Family; PCP Family Medicine
DX: G89.29 Other chronic pain (principal); M54.5 Low back pain; Z79.01 Long term (current) use of anticoagulants
CPT/HCPCS: 36415; 80048; 85025; 99283

== ENCOUNTER 2020-10-28 08:14 | Outpatient (CLI) | payer MEDICARE, MEDICAID, SELFPAY | END 2020-10-28 08:15 | disposition home or self-care (01) | LOC: WOUND 08:15 | PROVIDERS: PCP Family Medicine; Visit Provider Surgery | DX: I96 Gangrene, not elsewhere classified (principal); L89.154 Pressure ulcer of sacral region, stage 4 | CPT/HCPCS: 11043 ==

== ENCOUNTER 2020-11-04 08:12 | Outpatient (CLI) | payer MEDICARE, MEDICAID, SELFPAY | END 2020-11-04 08:13 | disposition home or self-care (01) | LOC: WOUND 08:13 | PROVIDERS: PCP Family Medicine; Visit Provider Nurse Practitioner Family | DX: I96 Gangrene, not elsewhere classified (principal); L89.154 Pressure ulcer of sacral region, stage 4 | CPT/HCPCS: G0463 ==

== ENCOUNTER 2020-11-11 08:01 | Outpatient (CLI) | payer MEDICARE, MEDICAID, SELFPAY | END 2020-11-11 08:02 | disposition home or self-care (01) | LOC: WOUND 08:05 | PROVIDERS: PCP Family Medicine; Visit Provider Surgery | DX: L89.154 Pressure ulcer of sacral region, stage 4 (principal) | CPT/HCPCS: 11043 ==

== ENCOUNTER 2020-11-25 08:24 | Outpatient (CLI) | payer MEDICARE, MEDICAID, SELFPAY | END 2020-11-25 08:25 | disposition home or self-care (01) | LOC: WOUND 08:27 | PROVIDERS: PCP Family Medicine; Visit Provider Thoracic Surgery (Cardiothoracic Vascular Surgery) | DX: I96 Gangrene, not elsewhere classified (principal); L89.154 Pressure ulcer of sacral region, stage 4 | CPT/HCPCS: 11042 ==

== ENCOUNTER 2020-12-02 08:14 | Outpatient (CLI) | payer MEDICARE, MEDICAID, SELFPAY | END 2020-12-02 08:15 | disposition home or self-care (01) | LOC: WOUND 08:15 | PROVIDERS: PCP Family Medicine; Visit Provider Surgery | DX: L89.154 Pressure ulcer of sacral region, stage 4 (principal) | CPT/HCPCS: 11043 ==

== ENCOUNTER 2020-12-09 07:58 | Outpatient (CLI) | payer MEDICARE, MEDICAID, SELFPAY | END 2020-12-09 07:59 | disposition home or self-care (01) | LOC: WOUND 07:59 | PROVIDERS: PCP Family Medicine; Visit Provider Surgery | DX: L89.154 Pressure ulcer of sacral region, stage 4 (principal) | CPT/HCPCS: 11043 ==

== ENCOUNTER 2020-12-23 08:03 | Outpatient (CLI) | payer MEDICARE, MEDICAID, SELFPAY | END 2020-12-23 08:04 | disposition home or self-care (01) | LOC: WOUND 08:04 | PROVIDERS: PCP Family Medicine; Visit Provider Surgery | DX: L89.154 Pressure ulcer of sacral region, stage 4 (principal) | CPT/HCPCS: 11043 ==

== ENCOUNTER 2020-12-30 08:08 | Outpatient (CLI) | payer MEDICARE, MEDICAID, SELFPAY | END 2020-12-30 08:09 | disposition home or self-care (01) | LOC: WOUND 08:10 | PROVIDERS: PCP Family Medicine; Visit Provider Surgery | DX: L89.154 Pressure ulcer of sacral region, stage 4 (principal) | CPT/HCPCS: 11043 ==

== ENCOUNTER → 2021-01-15 13:15 | Outpatient (BNVA) | payer MEDICARE, MEDICAID, SELFPAY | PROVIDERS: PCP Family Medicine; Visit Provider Nurse Practitioner Family | DX: Z20.822 Contact with and (suspected) exposure to COVID-19 (principal) | CPT/HCPCS: 87635 ==

== ENCOUNTER 2021-01-21 06:09 | Outpatient (CLI) | payer MEDICARE, MEDICAID, SELFPAY ==
[2021-01-21 06:32] VITALS: BP 116/74; PULSE 87; RESP 18; TEMP 36.7; O2SAT 94; BMI 46.9
--- NOTE | 2021-01-21 07:42 | AMB.MCA ---
Patient Information Other details: 50-year-old female who is wheelchair-bound due to a previous spinal abscess at the T4 level. Patient no Covid positive. She is within 10 days she is not requiring any increased oxygen. Discussed risk benefits alternatives she wishes to proceed monoclonal antibody infusion ordered. [facility]ITA COVID test results: SARS-CoV-2 RNA (RT-PCR) Detected (NOT DETECTED) A 01/15/21 13:15 01/15/21 Nasal/Oral Coronavirus 2019 PCR Not detected 10/05/20 15:57 10/05/20 Criteria/Plan Inclusion/Exclusion Criteria weight >/= 40kg and + direct test </= 10 days ago BMI >/= 35 not requiring hospitalization, not requiring oxygen (if not chronically on oxygen) and no increase oxygen requirement (if chronically on oxygen) Patient education patient/family/caregiver received/reviewed fact sheet, Emergency Use Authorization/unapproved drug status discussed with patient/family/caregiver, alternatives to this treatment discussed with patient/family/caregiver, risks and benefits of medication reviewed with patient/family/caregiver, patient/family/caregiver given opportunity for questions, which were answered and patient consents to receiving Monoclonal Antibody Treatment Plan for treatment Meets criteria for Monoclonal Antibody infusion Ordering Monoclonal Antibody infusion for today
[2021-01-21 08:37] VITALS: BP 117/79; PULSE 86; O2SAT 92
[2021-01-21 10:00] VITALS: BP 115/83; PULSE 91; RESP 16; TEMP 36.8; O2SAT 93
--- NOTE | 2021-01-27 13:06 | DCPLANNER ---
surgical territory manager had message that patient received the monoclonal antibody infusion. surgical territory manager called to check on patient, to see how patient was doing after the infusion. Patient stated that she is feeling much better, that before the infusion she had a cough, she did not have a fever, she did have a headache, chest and stomach pains. Patient stated that after the infusion that she still has a cough, but she does not have a headache, or chest pains. Patient stated that overall she is feeling better.
== END 2021-01-21 10:23 | disposition home or self-care (01) ==
LOC: ER 06:11
PROVIDERS: PCP Family Medicine; Visit Provider Family Medicine
DX: U07.1 COVID-19 (principal)
CPT/HCPCS: 96365

== ENCOUNTER 2021-02-03 08:07 | Outpatient (CLI) | payer MEDICARE, MEDICAID, SELFPAY | END 2021-02-03 08:08 | disposition home or self-care (01) | LOC: WOUND 08:09 | PROVIDERS: PCP Family Medicine; Visit Provider Surgery | DX: L89.154 Pressure ulcer of sacral region, stage 4 (principal) | CPT/HCPCS: 11043 ==

== ENCOUNTER 2021-02-10 08:11 | Outpatient (CLI) | payer MEDICARE, MEDICAID, SELFPAY | END 2021-02-10 08:12 | disposition home or self-care (01) | LOC: WOUND 08:12 | PROVIDERS: PCP Family Medicine; Visit Provider Surgery | DX: L89.154 Pressure ulcer of sacral region, stage 4 (principal) | CPT/HCPCS: 11043 ==

== ENCOUNTER 2021-02-13 10:31 | Outpatient (CLI) | payer MEDICARE, MEDICAID, SELFPAY ==
--- NOTE | 2021-02-13 11:00 | CT_ITS ---
WS: [id number] CT PELVIS WITH contrast HISTORY: follow up osteomyelitis, chronic sacral abscess TECHNIQUE: Contiguous imaging is performed of the pelvis with contrast. Coronal and sagittal reformat s are reviewed. All CT scans at [facility] use at least one of these dose optimization te chniques: automated exposure control; mA and/or kV adjustment per patient size (includes targeted exa ms where dose is matched to clinical indication); or iterative reconstruction. DLP: 1246.56 mGycm COMPARISON: 06/07/2020 Contrast: Omnipaque 350; 95 mL IV. Moderate improvement in the chronic abscess along the posterior surface of the sacrum. This abscess n ow measures 4.0 x 4.6 x 2.8 cm. The air component and soft tissue component has decreased. There is s till a soft tissue tract extending to the subcutaneous tissue. This abscess abuts the sacrum and ther e is an area of sclerosis involving the distal sacrum consistent with chronic osteomyelitis. Scleroti c component probably has not change significantly. There is also widening of several of the adjacent sacral foramina. There is an additional focal of new soft tissue calcifications in the LEFT posterior pelvis. May be from an injection site and granulomatous disease. Large hernia along the LEFT lateral pelvis containing nonobstructing loops of colon and small bowel. CT/CT pelvis w con* [id number] IMPRESSION: 1. Moderate improvement in the chronic abscess associated with the posterior s acrum. Abscess now measures 4.0 x 4.6 x 2.8 cm as compared to 3.1 x 5.5 x 5.6 c m. 2. Chronic osteomyelitis involving the distal sacrum with no progression.
[2021-02-13] MEDS: iohexol 350 mg/mL 100 mL Btl IV (11:29)
== END 2021-02-13 10:32 | disposition home or self-care (01) ==
PROVIDERS: PCP Family Medicine; Visit Provider Student in an Organized Health Care Education/Training Program
DX: N30.20 Other chronic cystitis without hematuria (principal); M46.28 Osteomyelitis of vertebra, sacral and sacrococcygeal region
CPT/HCPCS: 72193; Q9967

== ENCOUNTER 2021-02-17 08:11 | Outpatient (CLI) | payer MEDICARE, MEDICAID, SELFPAY | END 2021-02-17 08:12 | disposition home or self-care (01) | LOC: WOUND 08:12 | PROVIDERS: PCP Family Medicine; Visit Provider Surgery | DX: L89.154 Pressure ulcer of sacral region, stage 4 (principal) | CPT/HCPCS: 11043 ==

== ENCOUNTER 2021-02-24 08:02 | Outpatient (CLI) | payer MEDICARE, MEDICAID, SELFPAY | END 2021-02-24 08:03 | disposition home or self-care (01) | LOC: WOUND 08:03 | PROVIDERS: PCP Family Medicine; Visit Provider Surgery | DX: L89.154 Pressure ulcer of sacral region, stage 4 (principal) | CPT/HCPCS: 11043 ==

== ENCOUNTER 2021-03-03 08:14 | Outpatient (CLI) | payer MEDICARE, MEDICAID, SELFPAY | END 2021-03-03 08:15 | disposition home or self-care (01) | LOC: WOUND 08:15 | PROVIDERS: PCP Family Medicine; Visit Provider Surgery | DX: L89.154 Pressure ulcer of sacral region, stage 4 (principal) | CPT/HCPCS: 11043 ==

== ENCOUNTER 2021-03-10 07:52 | Outpatient (CLI) | payer MEDICARE, MEDICAID, SELFPAY | END 2021-03-10 07:53 | disposition home or self-care (01) | LOC: WOUND 07:53 | PROVIDERS: PCP Family Medicine; Visit Provider Emergency Medicine | DX: L89.154 Pressure ulcer of sacral region, stage 4 (principal) | CPT/HCPCS: 11042 ==

== ENCOUNTER 2021-03-24 08:05 | Outpatient (CLI) | payer MEDICARE, MEDICAID, SELFPAY | END 2021-03-24 08:06 | disposition home or self-care (01) | LOC: WOUND 08:06 | PROVIDERS: PCP Family Medicine; Visit Provider Surgery | DX: L89.154 Pressure ulcer of sacral region, stage 4 (principal) | CPT/HCPCS: 11043 ==

== ENCOUNTER 2021-04-07 08:02 | Outpatient (CLI) | payer MEDICARE, MEDICAID, SELFPAY | END 2021-04-07 08:03 | disposition home or self-care (01) | LOC: WOUND 08:04 | PROVIDERS: PCP Family Medicine; Visit Provider Nurse Practitioner Family | DX: L89.154 Pressure ulcer of sacral region, stage 4 (principal) | CPT/HCPCS: 11042 ==

== ENCOUNTER 2021-04-14 08:20 | Outpatient (CLI) | payer MEDICARE, MEDICAID, SELFPAY | END 2021-04-14 08:21 | disposition home or self-care (01) | LOC: WOUND 08:21 | PROVIDERS: PCP Family Medicine; Visit Provider Surgery | DX: L89.154 Pressure ulcer of sacral region, stage 4 (principal) | CPT/HCPCS: 11043 ==

== ENCOUNTER 2021-05-05 08:27 | Outpatient (CLI) | payer MEDICARE, MEDICAID, SELFPAY | END 2021-05-05 08:28 | disposition home or self-care (01) | LOC: WOUND 08:37 | PROVIDERS: PCP Family Medicine; Visit Provider Surgery | DX: L89.154 Pressure ulcer of sacral region, stage 4 (principal) | CPT/HCPCS: 11043 ==

== ENCOUNTER → 2021-05-12 11:44 | Outpatient (BNVA) | payer MEDICARE, MEDICAID, SELFPAY | PROVIDERS: PCP Family Medicine; Visit Provider Surgery | DX: Z11.52 Encounter for screening for COVID-19 (principal); Z20.822 Contact with and (suspected) exposure to COVID-19 | CPT/HCPCS: 87635 ==

== ENCOUNTER 2021-05-16 12:31 | Day surgery (SDC) | payer MEDICARE, MEDICAID, SELFPAY ==
[2021-05-15 12:31] VITALS: BMI 50.5
[2021-05-16 12:58] VITALS: BP 172/91; PULSE 77; RESP 18; TEMP 36.2; O2SAT 94
--- NOTE | 2021-05-16 13:05 | ANES.PREANE2 ---
Pre-Anesthetic Assessment Pre-Anesthetic Assessment: Height/Weight: Height 1.6 m Weight 129.274 kg Preop Diagnosis: Chronic lower back wound Proposed Procedure: Operation Date: 05/16/21 13:55 Proposed Procedures p Debridement of lower back sacral 74046 L89.154(Not Applicable) - Matty Drummond MD Was Beta Colette taken within 24 hours: N/A Was Clonidine taken within 24 hours: N/A Social: Social History: No tobacco Exam: Pre-Anes Outpt Exam: alert, oriented x 3, clear to auscultation bilaterally and regular rate & rhythm Airway: Submandibular: WNL Cervical ROM: WNL MP: 3 : Comments: Neurogenic bladder w suprapubic catheter. Metabolic: Metabolic: Morbid obesity Comments: BMI 50 Musc/skel: Musc/skel: Weakness Neuropsych: Neuropsych: Neuropathy Comments: T4 paraplegia. Anesthetic Plan: ASA status: 4 Anesthesia: Anesthesia Evaluation and General Risk of > 500 ml blood loss (7ml/kg in children): No PFSH Anesthesia PFSH: Medical History Chronic cystitis Neurogenic bladder Surgical History S/P section Suprapubic catheter Family History Family/Other Diabetes Cancer CAD (coronary artery disease) Mother , at age 74 Sepsis Cancer melanoma Diabetes Father Heart disease Social History Alcohol intake: never Lives independently: Yes Marital status: Current occupational status: disabled History of recent travel: No Data Anesthesia Cardiac Studies: No Data to Display
[2021-05-16] MEDS: sodium chloride 0.9% 1,000 ML 30 ML IV (13:30)
--- NOTE | 2021-05-16 13:30 | W.PM.OPSUD ---
Surgery/Procedure H&P Update DATE OF PROCEDURE: May 16, 2021 DATE H&P PERFORMED: 05/05/21 H&P UPDATE INFORMATION: I have reviewed H&P completed within last 30 days, I have examined patient prior to procedure and No changes to prior documentation PREOP DIAGNOSIS: Chronic lower back wound PRIMARY INDICATION FOR PROCEDURE: The same PLANNED PROCEDURE: Operation Date: 05/16/21 13:55 Proposed Procedures p Debridement of lower back sacral 54693 L89.154(Not Applicable) - Matty Drummond MD
[2021-05-16] MEDS: clindamycin 900 MG/50 ML PREMIX 100 MG IV (13:38)
--- NOTE | 2021-05-16 14:26 | PM.OP ---
Operative Report Date of procedure: May 16, 2021 Pre-op Diagnosis: Chronic lower back wound Pre-op Diagnosis: Pressure injury ulcer of the sacrum Procedure Done: 1-Sharp and excisional debridement of sacral wound 2-Application of xenograft micromatrix and Cytal(skin substitute) Implants: Application of xenograft micromatrix and Cytal(skin substitute) Surgeon: Matty Drummond Machine Puller: Jessica Klein Anesthesia: MAC (Gina Solorzano) Estimated blood loss (mL): 10 Condition: stable Disposition: same day Procedure: After identifying the patient holding area,patient was then taken to the operative suite,was placed in supine position then left lateral position, all pressure points were padded and patient was appropriately secured to the bed., IV antibiotics were given per protocol,IV propofol was infused by the anesthesia provider, prep and drape of the periwound region over the lower back and upper thighs was done under the usual sterile technique. Time-out was done verifying the patient's name/date of /planned procedure and destination after the procedure, all were in agreement. Started by excising and debriding sharply the wound bed. Small undermining was noticed at 3:00 about inch in depth. Sharp debridement was done all the way to the muscle layer. Predebridement wound measurements 3.5 x 2.3 x 2 cm Postdebridement wound measurements 3.5 x 2.5 x 2[address] to the muscle layer with tunneling appreciated towards the 3 o'clock position about an inch in depth Stage IV sacral pressure injury ulcer Copious and extensive irrigation of the wound was done using a liter of warm saline using Pulsavac, followed by appropriate hemostasis using Bovie cauterization. At the back table preparation of the wound matrix 3 layer sheet by immersing it in saline for few minutes and also the micromatrix powder was mixed with a total of 12 mL of saline to create a dough like structure. The Wound matrix 3 layer 10 x 15 cm sheet. Placed like pursestring using 3-0 Vicryl and the Dough content of the micro matrix was placed within the pursestring. Subsequently that was placed in the depth of the wound and interrupted 3-0 Vicryl was used to secure it to the edges of the wound following that more micromatrix was installed on top of the previous packing, a piece of Adaptic was placed onto that structure and was stitched at different corners using 3-0 Vicryl followed by gentle and dry 4 x 4 then ABDs and surgical pants. Patient tolerated the procedure well, count of instruments, needles and sponges were completed at the end of the procedure. Patient was then taken to the recovery area in stable condition. I was present for the whole entire procedure
[2021-05-16 14:32] VITALS: BP 154/94; PULSE 80; RESP 17; TEMP 37.2; O2SAT 95
[2021-05-16 14:35] VITALS: BP 142/80; PULSE 75; RESP 18; O2SAT 94
[2021-05-16 14:40] VITALS: BP 164/73; PULSE 74; RESP 18; TEMP 36.6; O2SAT 93
--- NOTE | 2021-05-16 16:46 | ANE.PACU2 ---
Inpatient post-anesthesia follow up: Airway intact: Yes Vital signs: Temperature 97.8 F Pulse Rate 74 Respiratory Rate 18 Blood Pressure 164/73 Pulse Oximetry 93 Oxygen Delivery Me thod Room Air Oxygen Flow Rate Fraction of Inspir ed Oxygen Hydration adequate: Yes Nausea and vomiting: No Pain level: 1 Mental status: Baseline
== END 2021-05-16 15:35 | disposition home or self-care (01) ==
PROVIDERS: PCP Family Medicine; Visit Provider Surgery
PROC: (CPT 11043; principal; 2021-05-16 13:45)
DX: L89.154 Pressure ulcer of sacral region, stage 4 (principal); E66.01 Morbid (severe) obesity due to excess calories; Z68.43 Body mass index [BMI] 50.0-59.9, adult; G82.20 Paraplegia, unspecified; Z82.49 Family history of ischemic heart disease and other diseases of the circulatory system; Z83.3 Family history of diabetes mellitus
CPT/HCPCS: 11043; C1762; J2704; J3010; J3490; J7030; Q4118

== ENCOUNTER 2021-05-19 13:03 | Outpatient (CLI) | payer MEDICARE, MEDICAID, SELFPAY | END 2021-05-19 13:04 | disposition home or self-care (01) | LOC: WOUND 13:04 | PROVIDERS: PCP Family Medicine; Visit Provider Surgery | DX: L89.154 Pressure ulcer of sacral region, stage 4 (principal) | CPT/HCPCS: 99212 ==

== ENCOUNTER 2021-05-26 08:02 | Outpatient (CLI) | payer MEDICARE, MEDICAID, SELFPAY | END 2021-05-26 08:03 | disposition home or self-care (01) | LOC: WOUND 08:03 | PROVIDERS: PCP Family Medicine; Visit Provider Surgery | DX: L89.154 Pressure ulcer of sacral region, stage 4 (principal) | CPT/HCPCS: 11042 ==

== ENCOUNTER 2021-06-09 08:11 | Outpatient (CLI) | payer MEDICARE, MEDICAID, SELFPAY | END 2021-06-09 08:12 | disposition home or self-care (01) | LOC: WOUND 08:12 | PROVIDERS: PCP Family Medicine; Visit Provider Surgery | DX: L89.154 Pressure ulcer of sacral region, stage 4 (principal) | CPT/HCPCS: 11042 ==

== ENCOUNTER 2021-06-16 08:05 | Outpatient (CLI) | payer MEDICARE, MEDICAID, SELFPAY | END 2021-06-16 08:06 | disposition home or self-care (01) | LOC: WOUND 08:06 | PROVIDERS: PCP Family Medicine; Visit Provider Nurse Practitioner Family | DX: L89.154 Pressure ulcer of sacral region, stage 4 (principal) | CPT/HCPCS: 11042 ==

== ENCOUNTER 2021-06-23 08:24 | Outpatient (CLI) | payer MEDICARE, MEDICAID, SELFPAY | END 2021-06-23 08:25 | disposition home or self-care (01) | LOC: WOUND 08:25 | PROVIDERS: PCP Family Medicine; Visit Provider Surgery | DX: L89.154 Pressure ulcer of sacral region, stage 4 (principal) | CPT/HCPCS: 11042 ==

== ENCOUNTER 2021-07-06 07:57 | Outpatient (CLI) | payer MEDICARE, MEDICAID, SELFPAY | END 2021-07-06 07:58 | disposition home or self-care (01) | LOC: WOUND 07:58 | PROVIDERS: PCP Family Medicine; Visit Provider Nurse Practitioner Family | DX: L89.154 Pressure ulcer of sacral region, stage 4 (principal) | CPT/HCPCS: 11042 ==

== ENCOUNTER 2021-07-21 08:17 | Outpatient (CLI) | payer MEDICARE, MEDICAID, SELFPAY | END 2021-07-21 08:18 | disposition home or self-care (01) | LOC: WOUND 08:18 | PROVIDERS: PCP Family Medicine; Visit Provider Surgery | DX: L89.154 Pressure ulcer of sacral region, stage 4 (principal) | CPT/HCPCS: 11042 ==

== ENCOUNTER 2021-08-04 08:10 | Outpatient (CLI) | payer MEDICARE, MEDICAID, SELFPAY | END 2021-08-04 08:11 | disposition home or self-care (01) | LOC: WOUND 08:12 | PROVIDERS: PCP Family Medicine; Visit Provider Surgery | DX: L89.154 Pressure ulcer of sacral region, stage 4 (principal) | CPT/HCPCS: 11043 ==

== ENCOUNTER 2021-08-18 08:00 | Outpatient (CLI) | payer MEDICARE, MEDICAID, SELFPAY | END 2021-08-18 08:01 | disposition home or self-care (01) | LOC: WOUND 08:01 | PROVIDERS: PCP Family Medicine; Visit Provider Surgery | DX: L89.154 Pressure ulcer of sacral region, stage 4 (principal) | CPT/HCPCS: 11042; A6021 ==

== ENCOUNTER 2021-09-08 08:06 | Outpatient (CLI) | payer MEDICARE, MEDICAID, SELFPAY | END 2021-09-08 08:07 | disposition home or self-care (01) | PROVIDERS: PCP Family Medicine; Visit Provider Surgery | DX: E11.622 Type 2 diabetes mellitus with other skin ulcer (principal); L89.304 Pressure ulcer of unspecified buttock, stage 4 | CPT/HCPCS: 11043; A6197 ==

== ENCOUNTER → 2021-09-29 07:55 | Outpatient (BNVA) | payer MEDICARE, MEDICAID, SELFPAY | PROVIDERS: PCP Family Medicine; Visit Provider Nurse Practitioner Family | DX: I96 Gangrene, not elsewhere classified (principal); L89.304 Pressure ulcer of unspecified buttock, stage 4 | CPT/HCPCS: 11042; 87070; 87077; 87176; 87186; 87205 ==

== ENCOUNTER → 2021-10-06 08:12 | Outpatient (BNVA) | payer MEDICARE, MEDICAID, SELFPAY | PROVIDERS: PCP Family Medicine; Visit Provider Surgery | DX: L89.304 Pressure ulcer of unspecified buttock, stage 4 (principal); I96 Gangrene, not elsewhere classified | CPT/HCPCS: 11042 ==

== ENCOUNTER → 2021-10-11 07:42 | Outpatient (BNVA) | payer MEDICARE, MEDICAID, SELFPAY | PROVIDERS: PCP Family Medicine; Referring Provider Family Medicine; Visit Provider Surgery | DX: K43.2 Incisional hernia without obstruction or gangrene (principal) | CPT/HCPCS: 99213 ==

== ENCOUNTER → 2021-10-13 12:03 | Outpatient (BNVA) | payer MEDICARE, MEDICAID, SELFPAY | PROVIDERS: PCP Family Medicine; Visit Provider Surgery | DX: I96 Gangrene, not elsewhere classified (principal); L89.304 Pressure ulcer of unspecified buttock, stage 4 | CPT/HCPCS: 11042 ==

== ENCOUNTER → 2021-10-16 14:00 | Outpatient (BNVA) | payer MEDICARE, MEDICAID, SELFPAY | PROVIDERS: PCP Family Medicine; Referring Provider Family Medicine; Visit Provider Surgery | DX: Z12.11 Encounter for screening for malignant neoplasm of colon (principal); K43.2 Incisional hernia without obstruction or gangrene; M46.28 Osteomyelitis of vertebra, sacral and sacrococcygeal region | CPT/HCPCS: 99024 ==

== ENCOUNTER → 2021-10-20 08:06 | Outpatient (BNVA) | payer MEDICARE, MEDICAID, SELFPAY | PROVIDERS: PCP Family Medicine; Visit Provider Emergency Medicine | DX: I96 Gangrene, not elsewhere classified (principal); L89.304 Pressure ulcer of unspecified buttock, stage 4 | CPT/HCPCS: 11042; 99212 ==

== ENCOUNTER 2021-10-23 08:32 | Outpatient (CLI) | payer MEDICARE, MEDICAID, SELFPAY ==
--- NOTE | 2021-10-23 08:50 | CT_ITS ---
WS: [id number] CT ABDOMEN AND PELVIS WITH CONTRAST HISTORY: abd discomfort, hernia TECHNIQUE: Imaging performed of the abdomen and pelvis with IV contrast. Single phase imaging of the abdomen. Coronal and sagittal reformats are submitted. All CT scans at [facility] use at [facility] st one of these dose optimization techniques: automated exposure control; mA and/or kV adjustment per patient size (includes targeted exams where dose is matched to clinical indication); or iterative re construction. Oral contrast and rectal contrast given. Contrast was also ordered to the stomach. This was not done as it would've been very difficult to do by CT without fluoroscopy. We gave additional oral contrast and waited in total contrast was noted within the stomach before scanning. IV CONTRAST: Omnipaque 300; 95 mL IV. Oral and rectal contrast: Yes DLP: 2502.08 mGy.cm COMPARISON: 02/13/2021, 05/03/2020 Quality of this examination is suboptimal due to patient's body habitus. 2 separate scans were obtain ed through the abdomen to include the entire parastomal hernia to the LEFT. Lower thorax: Lung bases are clear. Heart is normal size. No hiatal hernia. Liver/biliary system: Again noted is the exophytic cyst from the LEFT lobe of the liver measuring 19 mm. No bile duct dilatation. Normal portal vein. Gallbladder: Status post cholecystectomy. Pancreas: Fatty replaced pancreas. Spleen: Normal size spleen. No mass or infarct. Adrenal glands: Normal. Right kidney: Normal. Left kidney: Normal. Aorta: Normal. No aneurysm. Normal mesenteric arteries. IVC filter. Lymphadenopathy: None. Free fluid: None. GI tract: Normally distended stomach with oral contrast. No small bowel obstruction. There is a large LEFT lateral abdominal/parastomal hernia containing colon and small bowel. There is good distention of the small bowel within the parastomal hernia. There is no obstruction. Faith's pouch is minimall y distended with no filling defect. Abdominal wall: Marked thinning of the ventral abdominal wall musculature. There is a large neck LEFT abdominal wall parastomal hernia which was present on prior studies. Pelvis: Suprapubic catheter. No free fluid or adenopathy in the pelvis. Bones: Again noted is an abnormal sacrococcygeal junction from a known chronic osteomyelitis. Again n oted is a complex collection associated with the very distal sacrum containing air. This collection d oes not significantly enhance and measures 4.3 x 2.3 cm and is very similar to the prior study from . CT/CT abdomen pelvis w con* [id number] IMPRESSION: 1. No acute abdominal or pelvic abnormalities are identified. 2. No GI tract obstruction. There is good contrast distention of the small bow el and colon and stomach. Large LEFT parastomal hernia is reidentified with no interval change since 05/03/2020. 3. No free fluid or adenopathy. 4. Diastases of the rectus muscles. 5. Prior cholecystectomy and colostomy. 6. Small stable complex collection with fluid at the sacral resection site unc hanged since 02/13/2021.
[2021-10-23] MEDS: diatrizoate meglumine 120 mL Sol PR (13:25)
[2021-10-23] MEDS: iohexol 350 mg/mL 100 mL Btl IV (13:26)
== END 2021-10-23 08:33 | disposition home or self-care (01) ==
LOC: RAD 08:36
PROVIDERS: PCP Family Medicine; Visit Provider Student in an Organized Health Care Education/Training Program
DX: K43.5 Parastomal hernia without obstruction or gangrene (principal); M62.08 Separation of muscle (nontraumatic), other site; R10.9 Unspecified abdominal pain; Z90.49 Acquired absence of other specified parts of digestive tract; Z93.3 Colostomy status
CPT/HCPCS: 74177

== ENCOUNTER → 2021-10-27 08:09 | Outpatient (BNVA) | payer MEDICARE, MEDICAID, SELFPAY | PROVIDERS: PCP Family Medicine; Visit Provider Surgery | DX: I96 Gangrene, not elsewhere classified (principal); L89.304 Pressure ulcer of unspecified buttock, stage 4 | CPT/HCPCS: 11043 ==

== ENCOUNTER 2021-10-30 09:54 | Outpatient (CLI) | payer MEDICARE, MEDICAID, SELFPAY ==
--- NOTE | 2021-10-30 10:05 | MM_ITS ---
WS: [id number] BILATERAL SCREENING 3D TOMOSYNTHESIS DIGITAL MAMMOGRAM WITH CAD HISTORY: SCREENING COMPARISON: 05/08/2011 Extremely limited evaluation of the breast. Patient was unable to stand for this examination for any significant length of time or be positioned adequately for good quality mammography. Bilateral CC and MLO views submitted. Computer aided detection analyzed. Breast composition: There are scattered areas of fibroglandular density. No suspicious masses, microc alcifications or architectural distortion. Scattered calcifications and nodules. No suspicious mass o r interval change. MM/[place] [id number] IMPRESSION: BI-RADS: 2-Benign FOLLOW UP: 1 Year Follow-up
== END 2021-10-30 09:55 | disposition home or self-care (01) ==
LOC: RAD 09:55
PROVIDERS: PCP Family Medicine; Visit Provider Family Medicine
DX: Z12.31 Encounter for screening mammogram for malignant neoplasm of breast (principal)
CPT/HCPCS: 77063; 77067

== ENCOUNTER → 2021-11-10 08:08 | Outpatient (BNVA) | payer MEDICARE, MEDICAID, SELFPAY | PROVIDERS: PCP Family Medicine; Visit Provider Surgery | DX: L89.304 Pressure ulcer of unspecified buttock, stage 4 (principal); I96 Gangrene, not elsewhere classified | CPT/HCPCS: 11042; 11043 ==

== ENCOUNTER → 2021-11-17 08:06 | Outpatient (BNVA) | payer MEDICARE, MEDICAID, SELFPAY | PROVIDERS: PCP Family Medicine; Visit Provider Emergency Medicine | DX: I96 Gangrene, not elsewhere classified (principal); L89.304 Pressure ulcer of unspecified buttock, stage 4 | CPT/HCPCS: 11042 ==

== ENCOUNTER 2021-11-20 08:18 | Day surgery (SDC) | payer MEDICARE, MEDICAID, SELFPAY ==
[2021-11-17 11:01] VITALS: BMI 50.5
[2021-11-20] VITALS (9 sets, daily range): BP systolic 137–156; BP diastolic 71–96; PULSE 70–81; RESP 12–19; TEMP 36.1–36.7; O2SAT 94–100; BMI 50.5
--- NOTE | 2021-11-20 09:08 | ANES.PREANE2 ---
Pre-Anesthetic Assessment Height/Weight: Height 1.6 m Weight 129.274 kg Temp Pulse Resp BP Pulse Ox 97.0 F L 76 18 137/96 94 11/20/21 09:04 11/20/21 09:04 11/20/21 09:04 11/20/21 09:04 11/20/21 09:04 Preop Diagnosis: Sacral pressure injury ulcer Operation Date: 11/20/21 09:55 Proposed Procedures p Debridement,muscle and/or fascia(includes epidermis,dermis & subQ if performed) 1st 20 sqcm or less 59734, E11.622,B16835(Not Applicable) - Matty Drummond MD Familial anesthetic complications: Quit breathing during a spinal abscess procedure in 2007 and they had to put a breathing tube in Was Beta Colette taken within 24 hours: N/A Was Clonidine taken within 24 hours: N/A Last intake: Intake Last Liquid Date 11/19/21 Last Liquid Time 23:00 Last Solid Date 11/19/21 Last Solid Time 23:00 Social No alcohol and No tobacco Exam alert, oriented x 3, clear to auscultation bilaterally and regular rate & rhythm Airway Mallampati: Class II Dentition: chipped Pulmonary None reported CV/HEM Deep Vein Thrombosis lasix for peripheral edema None reported Hepatic None reported GI Gastroesophageal Reflux Disease Metabolic Morbid Obesity Neuropsych T4 paraplegia with no personal history of autonmic reflexia Anesthetic Plan ASA status: 3 Anesthesia: General Risk of > 500 ml blood loss (7ml/kg in children): No Medications/Allergies Home Medications Medication Instructions Recorded Confirmed Last Taken Type baclofen 20 mg tablet 20 mg PO DAILY 04/12/20 11/20/21 11/19/21 History docusate sodium 100 mg capsule 100 mg PO DAILY 04/12/20 11/20/21 11/19/21 History furosemide 20 mg tablet 10 mg PO QAM 04/12/20 11/20/21 11/19/21 History gabapentin 600 mg tablet 600 mg PO DAILY 04/12/20 11/20/21 11/19/21 History omeprazole 40 mg capsule,delayed 40 mg PO DAILY 04/12/20 11/20/21 11/19/21 History release potassium chloride 10 mEq 10 meq PO DAILY 04/12/20 11/20/21 11/19/21 History capsule,extended release venlafaxine 150 mg 150 mg PO DAILY 04/12/20 11/20/21 11/19/21 History capsule,extended release 24 hr warfarin 5 mg tablet 5 mg PO DAILY 04/12/20 11/20/21 11/17/21 History methenamine hippurate 1 gram tablet 1 g PO BID #60 tab 09/16/20 11/20/21 11/19/21 Rx ascorbic acid (vitamin C) 1,000 mg 500 mg PO BID 10/27/20 11/20/21 11/19/21 History tablet hydrocodone 5 mg-acetaminophen 325 1 tab PO Q6H PRN #10 tab 05/16/21 11/20/21 Unknown Rx mg tablet ciprofloxacin HCl 500 mg tablet 500 mg PO BID #28 tab 10/30/21 11/20/21 11/18/21 Rx Allergies Allergy/AdvReac Type Severity Reaction Status Date / Time azithromycin Allergy Unknown Verified 11/20/21 08:49 Penicillins Allergy Unknown Verified 11/20/21 08:49 tramadol [From Ultram] Allergy Unknown Verified 11/20/21 08:49 vancomycin Allergy Unknown Verified 11/20/21 08:49 [facility] Anesthesia Medical History Chronic cystitis Neurogenic bladder Surgical History S/P section Suprapubic catheter Family History Family/Other Diabetes Cancer CAD (coronary artery disease) Mother , at age 74 Sepsis Cancer melanoma Diabetes Father Heart disease Social History Smoking and tobacco status: never smoked Alcohol intake: never Lives independently: Yes Marital status: Current occupational status: disabled History of recent travel: No Data Anesthesia Cardiac Studies: No Data to Display
--- NOTE | 2021-11-20 09:34 | W.PM.OPSUD ---
Surgery/Procedure H&P Update DATE OF PROCEDURE: November 20, 2021 DATE H&P PERFORMED: 11/10/21 H&P UPDATE INFORMATION: I have reviewed H&P completed within last 30 days, I have examined patient prior to procedure and No changes to prior documentation PREOP DIAGNOSIS: Sacral pressure injury ulcer PRIMARY INDICATION FOR PROCEDURE: The same PLANNED PROCEDURE: Operation Date: 11/20/21 09:55 Proposed Procedures p Debridement,muscle and/or fascia(includes epidermis,dermis & subQ if performed) 1st 20 sqcm or less 00871, E11.622,C35211(Not Applicable) - Matty Drummond MD
[2021-11-20] MEDS: sodium chloride 0.9% 1,000 ML 30 ML IV (09:40)
[2021-11-20] MEDS: acetaminophen 1,000 MG/100 ML PIGGYBACK 400 MG IV (09:45)
[2021-11-20 10:16] LABS: INR 1.59 (0.8-1.2)
[2021-11-20] MEDS: ciprofloxacin 200 MG/100 ML PREMIX 100 MG IV (10:18)
[2021-11-20 10:22] LABS: Potassium 3.8 mmol/L (3.5-5.1)
[2021-11-20] MEDS: lidocaine 2% INJ 20 mL INJECTION (11:00)
--- NOTE | 2021-11-20 11:15 | P.OP_ITS ---
Operative Report Date of procedure: November 20, 2021 Pre-op diagnosis: Preop Diagnosis Sacral pressure injury ulcer Post-op diagnosis: Stage IV sacral pressure injury ulcer Procedure done: 1-Sharp and excisional debridement of sacral pressure injury ulcer 2-Application of xenograft(skin substitute) 3-Application of micro matrix 2 g Implants: Cytol wound matrix 3 layer 7 x 10 cm and micro matrix particulate 2 g Surgeon: Matty Drummond MD Spiral Machine Operator: Surgical technaga Griffith Circulating nurse Hortensia Anesthesia: General (Gina crowley and Dr. Bull) Estimated blood loss (mL): 10 IV fluids: 100 Procedure: ?After identifying the patient holding area, the Lower back wound/Sacral was marked before the procedure by myself, patient was then taken to the operative suite, was placed in supine position then left lateral position where all pressure points were padded and patient was secured to the bed.IV antibiotics were given per protocol, patient was already intubated the anesthesia provider, prep and drape of the ming-wound region was done under the usual sterile technique.After dressing and packing was removed by me. Time-out was done verifying the patient's name/date of /planned procedure and destination after the procedure, all were in agreement. Sharp debridement in the form of curette it was done to the wound cavity all the way to the musculofascial layer and some indentation and undermining was appreciated towards 3 o'clock position incision about half an inch As well as cephalad about an inch. Wound measurements; PreDebridement measurements 4.5 x 2 x 2[address] to the muscle and fascia Post debridement measurements 4.5 x 2.2 x 2.[address] to the muscle and fascial layer Sharp debridement all the way to the healthier musculofascial layer Copious and through irrigation of the wound was done with 1 L of normal saline followed by appropriate hemostasis The Wound matrix 3 layer 7x10 cm sheet.? Placed like pursestring using 3-0 PDS suture and the Dough content of the micro matrix the form of 2 g was placed within the pursestring.? Subsequently that was placed in the depth of the wound and interrupted 3-0 PDS suture was used to secure a piece of Adaptic onto the skin substitute to the skin edge. Followed by 4 x 4's and ABDs. Patient tolerated the procedure well, count of instruments,needles and sponges were completed at the end of the procedure.Patient was then taken to the recovery area in stable condition. I was present for the whole entire procedure.
--- NOTE | 2021-11-20 11:38 | SUR.PHASEI ---
1129 PT TO PACU 5 PT SLEEPS QUIETLY, WITH GOOD RESP EFFORT, VSS IV TO RT HAND#22 WITH NS 9020MLUP AT KVO RATE PER GRAVITY, LT HAND #22 PIID. DRESSING TO COCCYX AREA D/I FROM OR, NOT ASSESSED AT THIS TIME, PT ID BAND TO RT WRIST, PT ID'D WITH 2 IDENTIFIERS. WARM BLANKETS TO PT X 2.
--- NOTE | 2021-11-20 11:44 | SUR.PHASEI ---
PT AWAKES, PT TAKING MASK OFF,PT COUGHS STRONGLY, PT PLACED ON 3LNC FOR COMFORT, PT STATES SHE USES NC AT HOME. SATS MAINTAINED AT 97% WITH NO DISTRESS AT THIS TIME.
--- NOTE | 2021-11-20 13:24 | ANE.PACU2 ---
Inpatient post-anesthesia follow up: Airway intact: Yes Vital signs: Temperature 97.0 F Pulse Rate 70 Respiratory Rate 18 Blood Pressure 143/74 Pulse Oximetry 98 Oxygen Delivery Me thod Nasal Cannula Oxygen Flow Rate 3 Fraction of Inspir ed Oxygen Hydration adequate: Yes Nausea and vomiting: No Pain level: 1 Mental status: Baseline
== END 2021-11-20 13:08 | disposition home or self-care (01) ==
PROVIDERS: PCP Family Medicine; Visit Provider Surgery
PROC: (CPT 15002; principal; 2021-11-20 09:45)
DX: L89.154 Pressure ulcer of sacral region, stage 4 (principal); Z86.718 Personal history of other venous thrombosis and embolism; E66.01 Morbid (severe) obesity due to excess calories; Z68.43 Body mass index [BMI] 50.0-59.9, adult; G82.20 Paraplegia, unspecified; Z82.49 Family history of ischemic heart disease and other diseases of the circulatory system
CPT/HCPCS: 15002; 36415; 84132; 85610; J0744; J1100; J2250; J2370; J2405; J2704; J3010; J3490; J7030; Q4118; Q4166

== ENCOUNTER → 2021-11-24 08:02 | Outpatient (BNVA) | payer MEDICARE, MEDICAID, SELFPAY | PROVIDERS: PCP Family Medicine; Visit Provider Surgery | DX: I96 Gangrene, not elsewhere classified (principal); L89.304 Pressure ulcer of unspecified buttock, stage 4 | CPT/HCPCS: 11043 ==

== ENCOUNTER → 2021-11-27 12:30 | Outpatient (BNVA) | payer MEDICARE, MEDICAID, SELFPAY | PROVIDERS: PCP Family Medicine; Visit Provider Nurse Practitioner Family | DX: Z93.59 Other cystostomy status (principal); N30.20 Other chronic cystitis without hematuria; N31.9 Neuromuscular dysfunction of bladder, unspecified | CPT/HCPCS: 51705 ==

== ENCOUNTER → 2021-12-01 08:08 | Outpatient (BNVA) | payer MEDICARE, MEDICAID, SELFPAY | PROVIDERS: PCP Family Medicine; Visit Provider Surgery | DX: I96 Gangrene, not elsewhere classified (principal); L89.304 Pressure ulcer of unspecified buttock, stage 4 | CPT/HCPCS: 11043 ==

== ENCOUNTER → 2021-12-06 07:52 | Outpatient (BNVA) | payer MEDICARE, MEDICAID, SELFPAY | PROVIDERS: PCP Family Medicine; Visit Provider Podiatrist Foot & Ankle Surgery | DX: M79.671 Pain in right foot (principal); M79.672 Pain in left foot; L60.3 Nail dystrophy; I73.9 Peripheral vascular disease, unspecified; I87.2 Venous insufficiency (chronic) (peripheral); G82.20 Paraplegia, unspecified | CPT/HCPCS: 11721; 99204 ==

== ENCOUNTER → 2021-12-08 08:10 | Outpatient (BNVA) | payer MEDICARE, MEDICAID, SELFPAY | PROVIDERS: PCP Family Medicine; Visit Provider Surgery | DX: L89.304 Pressure ulcer of unspecified buttock, stage 4 (principal); I96 Gangrene, not elsewhere classified | CPT/HCPCS: 11043 ==

== ENCOUNTER → 2021-12-18 09:02 | Outpatient (BNVA) | payer MEDICARE, MEDICAID, SELFPAY | PROVIDERS: PCP Family Medicine; Visit Provider Nurse Practitioner Family | DX: Z93.59 Other cystostomy status (principal); N31.9 Neuromuscular dysfunction of bladder, unspecified; N30.20 Other chronic cystitis without hematuria | CPT/HCPCS: 51705 ==

== ENCOUNTER → 2021-12-22 08:01 | Outpatient (BNVA) | payer MEDICARE, MEDICAID, SELFPAY | PROVIDERS: PCP Family Medicine; Visit Provider Nurse Practitioner Family | DX: I96 Gangrene, not elsewhere classified (principal); L89.304 Pressure ulcer of unspecified buttock, stage 4 | CPT/HCPCS: 11042; A6197 ==

== ENCOUNTER → 2021-12-29 08:12 | Outpatient (BNVA) | payer MEDICARE, MEDICAID, SELFPAY | PROVIDERS: PCP Family Medicine; Visit Provider Nurse Practitioner Family | DX: I96 Gangrene, not elsewhere classified (principal); L89.304 Pressure ulcer of unspecified buttock, stage 4 | CPT/HCPCS: 11042; A6197 ==

== ENCOUNTER → 2022-01-05 08:13 | Outpatient (BNVA) | payer MEDICARE, MEDICAID, SELFPAY | PROVIDERS: PCP Family Medicine; Visit Provider Surgery | DX: I96 Gangrene, not elsewhere classified (principal); L89.304 Pressure ulcer of unspecified buttock, stage 4 | CPT/HCPCS: 11043; A6197 ==

== ENCOUNTER → 2022-01-17 07:43 | Outpatient (BNVA) | payer MEDICARE, MEDICAID, SELFPAY | PROVIDERS: PCP Family Medicine; Visit Provider Nurse Practitioner Family | DX: N31.9 Neuromuscular dysfunction of bladder, unspecified (principal); Z93.59 Other cystostomy status; N30.20 Other chronic cystitis without hematuria | CPT/HCPCS: 51705 ==

== ENCOUNTER → 2022-01-19 08:16 | Outpatient (BNVA) | payer MEDICARE, MEDICAID, SELFPAY | PROVIDERS: PCP Family Medicine; Visit Provider Surgery | DX: I96 Gangrene, not elsewhere classified (principal); L89.304 Pressure ulcer of unspecified buttock, stage 4 | CPT/HCPCS: 11043; A6197 ==

== ENCOUNTER → 2022-02-02 07:51 | Outpatient (BNVA) | payer MEDICARE, MEDICAID, SELFPAY | PROVIDERS: PCP Family Medicine; Visit Provider Nurse Practitioner Family | DX: I96 Gangrene, not elsewhere classified (principal); L89.304 Pressure ulcer of unspecified buttock, stage 4 | CPT/HCPCS: 11042; A6197 ==

== ENCOUNTER → 2022-02-09 07:57 | Outpatient (BNVA) | payer MEDICARE, MEDICAID, SELFPAY | PROVIDERS: PCP Family Medicine; Visit Provider Nurse Practitioner Family | DX: I96 Gangrene, not elsewhere classified (principal); L89.304 Pressure ulcer of unspecified buttock, stage 4 | CPT/HCPCS: 11042; A6197 ==

== ENCOUNTER → 2022-02-14 07:59 | Outpatient (BNVA) | payer MEDICARE, MEDICAID, SELFPAY | PROVIDERS: PCP Family Medicine; Visit Provider Nurse Practitioner Family | DX: N31.9 Neuromuscular dysfunction of bladder, unspecified (principal); Z93.59 Other cystostomy status; N30.20 Other chronic cystitis without hematuria | CPT/HCPCS: 51705 ==

== ENCOUNTER → 2022-02-23 07:45 | Outpatient (BNVA) | payer MEDICARE, MEDICAID, SELFPAY | PROVIDERS: PCP Family Medicine; Visit Provider Nurse Practitioner Family | DX: I96 Gangrene, not elsewhere classified (principal); L89.304 Pressure ulcer of unspecified buttock, stage 4 | CPT/HCPCS: 11042; 87070; 87176; 87205; A6197 ==

== ENCOUNTER → 2022-03-05 07:53 | Outpatient (BNVA) | payer MEDICARE, MEDICAID, SELFPAY | PROVIDERS: PCP Family Medicine; Visit Provider Podiatrist Foot & Ankle Surgery | DX: L60.3 Nail dystrophy (principal); I73.9 Peripheral vascular disease, unspecified; I87.2 Venous insufficiency (chronic) (peripheral); G82.20 Paraplegia, unspecified | CPT/HCPCS: 11721 ==

== ENCOUNTER → 2022-03-09 07:49 | Outpatient (BNVA) | payer MEDICARE, MEDICAID, SELFPAY | PROVIDERS: PCP Family Medicine; Visit Provider Surgery | DX: L89.304 Pressure ulcer of unspecified buttock, stage 4 (principal); I96 Gangrene, not elsewhere classified | CPT/HCPCS: 97597; A6197 ==

== ENCOUNTER → 2022-03-14 09:26 | Outpatient (BNVA) | payer MEDICARE, MEDICAID, SELFPAY | PROVIDERS: PCP Family Medicine; Visit Provider Nurse Practitioner Family | DX: N30.20 Other chronic cystitis without hematuria (principal); N31.9 Neuromuscular dysfunction of bladder, unspecified; Z93.59 Other cystostomy status | CPT/HCPCS: 51705 ==

== ENCOUNTER → 2022-03-16 07:49 | Outpatient (BNVA) | payer MEDICARE, MEDICAID, SELFPAY | PROVIDERS: PCP Family Medicine; Visit Provider Nurse Practitioner Family | DX: I96 Gangrene, not elsewhere classified (principal); L89.304 Pressure ulcer of unspecified buttock, stage 4 | CPT/HCPCS: 11042; A6197 ==

== ENCOUNTER → 2022-03-30 07:53 | Outpatient (BNVA) | payer MEDICARE, MEDICAID, SELFPAY | PROVIDERS: PCP Family Medicine; Visit Provider Surgery | DX: L89.304 Pressure ulcer of unspecified buttock, stage 4 (principal); I96 Gangrene, not elsewhere classified | CPT/HCPCS: 11042; A6197 ==

== ENCOUNTER 2022-04-06 09:17 | Outpatient (CLI) | payer MEDICARE, MEDICAID, SELFPAY ==
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
== END 2022-04-06 09:18 | disposition home or self-care (01) ==
LOC: RAD 09:19
PROVIDERS: PCP Family Medicine; Visit Provider Family Medicine
DX: M43.6 Torticollis (principal); I96 Gangrene, not elsewhere classified; L89.304 Pressure ulcer of unspecified buttock, stage 4
CPT/HCPCS: 11042; 72040; A6021

== ENCOUNTER → 2022-04-13 08:00 | Outpatient (BNVA) | payer MEDICARE, MEDICAID, SELFPAY | PROVIDERS: PCP Family Medicine; Visit Provider Nurse Practitioner Family | DX: I96 Gangrene, not elsewhere classified (principal); L89.314 Pressure ulcer of right buttock, stage 4 | CPT/HCPCS: 11042 ==

== ENCOUNTER → 2022-04-16 08:16 | Outpatient (BNVA) | payer MEDICARE, MEDICAID, SELFPAY | PROVIDERS: PCP Family Medicine; Visit Provider Nurse Practitioner Family | DX: Z46.6 Encounter for fitting and adjustment of urinary device (principal); N30.20 Other chronic cystitis without hematuria; R50.9 Fever, unspecified; N31.9 Neuromuscular dysfunction of bladder, unspecified; Z93.59 Other cystostomy status | CPT/HCPCS: 51705; 99212; 99214 ==

== ENCOUNTER → 2022-04-20 08:06 | Outpatient (BNVA) | payer MEDICARE, MEDICAID, SELFPAY | PROVIDERS: PCP Family Medicine; Visit Provider Nurse Practitioner Family | DX: L89.154 Pressure ulcer of sacral region, stage 4 (principal); L89.314 Pressure ulcer of right buttock, stage 4 | CPT/HCPCS: 11042; A6197 ==

== ENCOUNTER → 2022-04-26 12:35 | Outpatient (BNVA) | payer MEDICARE, MEDICAID, SELFPAY | PROVIDERS: PCP Family Medicine; Visit Provider Internal Medicine | DX: Z86.718 Personal history of other venous thrombosis and embolism (principal) | CPT/HCPCS: 99213; 99214 ==

== ENCOUNTER → 2022-05-04 08:07 | Outpatient (BNVA) | payer MEDICARE, MEDICAID, SELFPAY | PROVIDERS: PCP Family Medicine; Visit Provider Nurse Practitioner Family | DX: I96 Gangrene, not elsewhere classified (principal); L89.314 Pressure ulcer of right buttock, stage 4 | CPT/HCPCS: 11042 ==

== ENCOUNTER → 2022-05-11 08:04 | Outpatient (BNVA) | payer MEDICARE, MEDICAID, SELFPAY | PROVIDERS: PCP Family Medicine; Visit Provider Surgery | DX: I96 Gangrene, not elsewhere classified (principal); L89.314 Pressure ulcer of right buttock, stage 4 | CPT/HCPCS: 11042; A6197 ==

== ENCOUNTER → 2022-05-16 08:06 | Outpatient (BNVA) | payer MEDICARE, MEDICAID, SELFPAY | PROVIDERS: PCP Family Medicine; Visit Provider Nurse Practitioner Family | DX: N30.20 Other chronic cystitis without hematuria (principal); N31.9 Neuromuscular dysfunction of bladder, unspecified; Z93.59 Other cystostomy status | CPT/HCPCS: 51705 ==

== ENCOUNTER → 2022-05-30 09:08 | Outpatient (BNVA) | payer MEDICARE, MEDICAID, SELFPAY | PROVIDERS: PCP Family Medicine; Visit Provider Nurse Practitioner Family | DX: I96 Gangrene, not elsewhere classified (principal); L89.304 Pressure ulcer of unspecified buttock, stage 4 | CPT/HCPCS: 11042; A6197 ==

== ENCOUNTER → 2022-06-08 07:56 | Outpatient (BNVA) | payer MEDICARE, MEDICAID, SELFPAY | PROVIDERS: PCP Family Medicine; Visit Provider Nurse Practitioner Family | DX: I96 Gangrene, not elsewhere classified (principal); L89.314 Pressure ulcer of right buttock, stage 4 | CPT/HCPCS: 11042 ==

== ENCOUNTER → 2022-06-11 12:44 | Outpatient (BNVA) | payer MEDICARE, MEDICAID, SELFPAY | PROVIDERS: PCP Family Medicine; Visit Provider Urology | DX: N30.20 Other chronic cystitis without hematuria (principal); Z93.59 Other cystostomy status | CPT/HCPCS: 51705 ==

== ENCOUNTER → 2022-06-15 08:46 | Outpatient (BNVA) | payer MEDICARE, MEDICAID, SELFPAY | PROVIDERS: PCP Family Medicine; Visit Provider Nurse Practitioner Family | DX: I96 Gangrene, not elsewhere classified (principal); L89.304 Pressure ulcer of unspecified buttock, stage 4 | CPT/HCPCS: 11042; A6197 ==

== ENCOUNTER → 2022-06-22 08:05 | Outpatient (BNVA) | payer MEDICARE, MEDICAID, SELFPAY | PROVIDERS: PCP Family Medicine; Visit Provider Surgery | DX: I96 Gangrene, not elsewhere classified (principal); L89.304 Pressure ulcer of unspecified buttock, stage 4; G82.20 Paraplegia, unspecified | CPT/HCPCS: 11043; A6197 ==

== ENCOUNTER → 2022-07-04 12:01 | Outpatient (BNVA) | payer MEDICARE, MEDICAID, SELFPAY | PROVIDERS: PCP Family Medicine; Visit Provider Urology | DX: Z93.59 Other cystostomy status (principal); N31.9 Neuromuscular dysfunction of bladder, unspecified | CPT/HCPCS: 51705; 52000 ==

== ENCOUNTER → 2022-07-06 08:08 | Outpatient (BNVA) | payer MEDICARE, MEDICAID, SELFPAY | PROVIDERS: PCP Family Medicine; Visit Provider Thoracic Surgery (Cardiothoracic Vascular Surgery) | DX: I96 Gangrene, not elsewhere classified (principal); L89.304 Pressure ulcer of unspecified buttock, stage 4 | CPT/HCPCS: 11042; A6197 ==

== ENCOUNTER → 2022-07-13 08:02 | Outpatient (BNVA) | payer MEDICARE, MEDICAID, SELFPAY | PROVIDERS: PCP Family Medicine; Visit Provider Thoracic Surgery (Cardiothoracic Vascular Surgery) | DX: I96 Gangrene, not elsewhere classified (principal); L89.314 Pressure ulcer of right buttock, stage 4; G82.20 Paraplegia, unspecified | CPT/HCPCS: 97597; A6197; A6251 ==

== ENCOUNTER → 2022-07-20 08:05 | Outpatient (BNVA) | payer MEDICARE, MEDICAID, SELFPAY | PROVIDERS: PCP Family Medicine; Visit Provider Thoracic Surgery (Cardiothoracic Vascular Surgery) | DX: I96 Gangrene, not elsewhere classified (principal); L89.314 Pressure ulcer of right buttock, stage 4 | CPT/HCPCS: 11042 ==

== ENCOUNTER → 2022-07-27 07:58 | Outpatient (BNVA) | payer MEDICARE, MEDICAID, SELFPAY | PROVIDERS: PCP Family Medicine; Visit Provider Thoracic Surgery (Cardiothoracic Vascular Surgery) | DX: I96 Gangrene, not elsewhere classified (principal); L89.154 Pressure ulcer of sacral region, stage 4; G82.20 Paraplegia, unspecified | CPT/HCPCS: 11042; A6210 ==

== ENCOUNTER → 2022-08-02 13:16 | Outpatient (BNVA) | payer MEDICARE, MEDICAID, SELFPAY | PROVIDERS: PCP Family Medicine; Visit Provider Urology | DX: N31.9 Neuromuscular dysfunction of bladder, unspecified (principal); Z93.59 Other cystostomy status | CPT/HCPCS: 51705 ==

== ENCOUNTER → 2022-08-03 07:59 | Outpatient (BNVA) | payer MEDICARE, MEDICAID, SELFPAY | PROVIDERS: PCP Family Medicine; Visit Provider Thoracic Surgery (Cardiothoracic Vascular Surgery) | DX: I96 Gangrene, not elsewhere classified (principal); L89.314 Pressure ulcer of right buttock, stage 4 | CPT/HCPCS: 11042; A6021 ==

== ENCOUNTER → 2022-08-17 08:02 | Outpatient (BNVA) | payer MEDICARE, MEDICAID, SELFPAY | PROVIDERS: PCP Family Medicine; Visit Provider Thoracic Surgery (Cardiothoracic Vascular Surgery) | DX: I96 Gangrene, not elsewhere classified (principal); L89.314 Pressure ulcer of right buttock, stage 4 | CPT/HCPCS: 11042; A6021; A6219 ==

== ENCOUNTER → 2022-08-30 13:37 | Outpatient (BNVA) | payer MEDICARE, MEDICAID, SELFPAY | PROVIDERS: PCP Family Medicine; Visit Provider Urology | DX: N31.9 Neuromuscular dysfunction of bladder, unspecified (principal); Z93.59 Other cystostomy status | CPT/HCPCS: 51705 ==

== ENCOUNTER 2022-08-31 09:08 | Outpatient (CLI) | payer MEDICARE, MEDICAID, SELFPAY ==
--- NOTE | 2022-08-31 09:28 | XR_ITS ---
WS: [id number] Exam: XR foot RT min 3V* [id number] Date/Time of Exam: 08/31/2022 9:38 AM Reason For Exam: R52 - Pain, unspecified Comparison 08/05/2020. There is a healing fracture with callus formation involving the proximal phalanx of the fifth toe. No significant displacement. There is also a probable healing fracture at the base of the fifth metatar dulce. No significant displacement. Marked soft tissue swelling over the dorsum of the forefoot. No oth er fractures. Degenerative changes in the midfoot joints and IP joints. DJD at the first MP joint. Os teopenia. XR/XR foot RT min 3V* [id number] IMPRESSION: 1. Healing fracture with callus formation of the proximal fifth phalanx alignme nt is satisfactory. 2. Probable healing fracture involving the styloid process of the proximal fift h metatarsal also in satisfactory alignment. 2. Marked edema of the foot. Degenerative changes osteopenia.
== END 2022-08-31 09:09 | disposition home or self-care (01) ==
PROVIDERS: PCP Family Medicine; Visit Provider Thoracic Surgery (Cardiothoracic Vascular Surgery)
DX: S92.911A Unspecified fracture of right toe(s), initial encounter for closed fracture (principal); R60.0 Localized edema; X58.XXXA Exposure to other specified factors, initial encounter; I96 Gangrene, not elsewhere classified; L89.304 Pressure ulcer of unspecified buttock, stage 4
CPT/HCPCS: 11042; 73630; A6021

== ENCOUNTER → 2022-09-07 08:02 | Outpatient (BNVA) | payer MEDICARE, MEDICAID, SELFPAY | PROVIDERS: PCP Family Medicine; Visit Provider Thoracic Surgery (Cardiothoracic Vascular Surgery) | DX: I96 Gangrene, not elsewhere classified (principal); L89.304 Pressure ulcer of unspecified buttock, stage 4 | CPT/HCPCS: 11042; A6021; A6210 ==

== ENCOUNTER → 2022-09-10 09:28 | Outpatient (BNVA) | payer MEDICARE, MEDICAID, SELFPAY | PROVIDERS: PCP Family Medicine; Visit Provider Podiatrist Foot & Ankle Surgery | DX: S92.351A Displaced fracture of fifth metatarsal bone, right foot, initial encounter for closed fracture (principal); W22.8XXA Striking against or struck by other objects, initial encounter | CPT/HCPCS: 73630 ==

== ENCOUNTER 2022-09-10 10:40 | Outpatient (CLI) | payer MEDICARE, MEDICAID, SELFPAY | END 2022-09-10 10:41 | disposition home or self-care (01) | LOC: SPT 10:41 | PROVIDERS: PCP Family Medicine; Visit Provider Podiatrist Foot & Ankle Surgery | DX: Z46.89 Encounter for fitting and adjustment of other specified devices (principal); M79.671 Pain in right foot; S92.351D Displaced fracture of fifth metatarsal bone, right foot, subsequent encounter for fracture with routine healing; X58.XXXD Exposure to other specified factors, subsequent encounter | CPT/HCPCS: 97760; 99214; L4361 ==

== ENCOUNTER → 2022-09-21 08:31 | Outpatient (BNVA) | payer MEDICARE, MEDICAID, SELFPAY | PROVIDERS: PCP Family Medicine; Visit Provider Thoracic Surgery (Cardiothoracic Vascular Surgery) | DX: I96 Gangrene, not elsewhere classified (principal); L89.154 Pressure ulcer of sacral region, stage 4 | CPT/HCPCS: 11042; A6210; A6219 ==

== ENCOUNTER → 2022-09-24 11:54 | Outpatient (BNVA) | payer MEDICARE, MEDICAID, SELFPAY | PROVIDERS: PCP Family Medicine; Visit Provider Urology | DX: N30.20 Other chronic cystitis without hematuria (principal); N31.9 Neuromuscular dysfunction of bladder, unspecified; Z93.59 Other cystostomy status | CPT/HCPCS: 51705 ==

== ENCOUNTER → 2022-10-01 08:11 | Outpatient (BNVA) | payer MEDICARE, MEDICAID, SELFPAY | PROVIDERS: PCP Family Medicine; Visit Provider Podiatrist Foot & Ankle Surgery | DX: I73.9 Peripheral vascular disease, unspecified (principal); S92.501D Displaced unspecified fracture of right lesser toe(s), subsequent encounter for fracture with routine healing; X58.XXXD Exposure to other specified factors, subsequent encounter | CPT/HCPCS: 73630; 99213 ==

== ENCOUNTER → 2022-10-05 08:08 | Outpatient (BNVA) | payer MEDICARE, MEDICAID, SELFPAY | PROVIDERS: PCP Family Medicine; Visit Provider Thoracic Surgery (Cardiothoracic Vascular Surgery) | DX: I96 Gangrene, not elsewhere classified (principal); L89.154 Pressure ulcer of sacral region, stage 4 | CPT/HCPCS: 11042; A6021 ==

== ENCOUNTER 2022-10-09 09:25 | Emergency (ER) | payer MEDICARE, MEDICAID, SELFPAY ==
[2022-10-09 09:42] VITALS: BP 135/88; PULSE 79; RESP 18; TEMP 36.5; O2SAT 91; BMI 53.1
--- NOTE | 2022-10-09 09:51 | XRR_ITS ---
PROCEDURE INFORMATION: Exam: XR Left Foot Exam date and time: 10/09/2022 10:06 AM Age: 52 years old Clinical indication: Injury or trauma; Foot; Foreign body involvement not specified; Injury details: Left toe laceration; Prior surgery; Surgery type: Toe amputations TECHNIQUE: Imaging protocol: Radiologic exam of the left foot. Views: 3 or more views. Total images: 514 COMPARISON: CR XR foot LT min 3V* [id number] 02/13/2018 2:06 PM FINDINGS: Bones/joints: Diffuse osteopenia noted. No acute fracture nor subluxation. No osseous erosion nor periosteal reaction. Soft tissues: Paucity of muscular tissue. No radio-dense foreign body. Other findings: Status post partial resection of distal aspect of distal phalanx of the left great toe. XR/XR foot LT min 3V* [id number] IMPRESSION: 1. No acute osseous pathology. 2. No radio-dense foreign body.
--- NOTE | 2022-10-09 09:57 | W.ED.WOUNDLC ---
HPI - Wound/Laceration General: Chief Complaint: Wound/Laceration Stated Complaint: left foot toe lac Time Seen by Provider: 10/09/22 09:27 Source: patient Mode of arrival: ambulatory History of Present Illness: 52-year-old female wheelchair-bound was navigating in her home and hit her left foot resulting in a laceration on the underside of the left toe. There is no active bleeding. Last tetanus was in 2019 she denies any other injuries. Onset (ago): minute(s) Place: home Patient tetanus UTD: Yes Context: accidental Associated symptoms: Reports no associated symptoms; Denies chills, fever(s), nausea or vomiting Review of Systems Const: Denies: fever(s), chills, body aches, change in appetite, fatigue or malaise ENMT: Denies: throat pain, ear or mastoid pain, nasal discharge or nasal congestion Card: Denies: chest pain, edema, dyspnea on exertion or orthopnea Resp: Denies: dyspnea, productive cough or non-productive cough GI: Denies: abdominal pain, nausea, vomiting, hematemesis, coffee ground emesis, diarrhea, constipation, bloating, hematochezia or melena : Denies: flank pain, dysuria, urinary frequency or urinary urgency Musc: Reports: extremity pain (Left third toe) Skin/Breast: Denies: rash or pruritus PFSH ED PFSH: Medical History (Updated 10/09/22 @ 12:36 by Gerson Waldron DO) Chronic cystitis Chronic osteomyelitis Chronic venous insufficiency of lower extremity Colostomy in place Exposure to Streptococcal pharyngitis History of DVT (deep vein thrombosis) Neurogenic bladder Paraplegia 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 Pharyngitis PVD (peripheral vascular disease) Viral syndrome Surgical History S/P section S/P cholecystectomy Suprapubic catheter Family History Family/Other Diabetes Cancer CAD (coronary artery disease) Mother , at age 74 Sepsis Cancer melanoma Diabetes Father Heart disease Social History Smoking and tobacco status: never smoked Alcohol intake: never Lives independently: Yes Marital status: Current occupational status: disabled Physical Exam Const: GENERAL APPEARANCE: cooperative and comfortable ORIENTATION/CONSCIOUSNESS: Yes awake, Yes oriented to person, Yes oriented to place and Yes oriented to time HENMT: COMMON NORMALS: normocephalic, atraumatic and hearing grossly normal bilaterally HEAD & SCALP: normocephalic and atraumatic Resp: COMMON NORMALS: normal respiratory effort, No retractions and No use of accessory muscles Extremity: OTHER: 1 cm laceration flexor surface of the left third toe no active bleeding Neuro: SENSORIUM/ORIENTATION: Yes oriented to person, Yes oriented to place and Yes oriented to time Skin: COMMON NORMALS: no rashes or lesions noted GENERAL SKIN EXAM: no rashes or lesions noted Procedures Laceration Laceration 1: Site: lower extremity (Left foot third toe) Side (If applicable): left Size (cm): 1 Description: linear Depth: simple, single layer Local Anesthetic: lidocaine 1% (Done, reinforced locally) Amount of anesthesia used (mL): 4 Pre-repair: wound explored, irrigated extensively and deep structures intact Skin layer closed with: nylon Size (cm): 4-0 Number of sutures: 1 Technique: running Course Vital Signs: Vital signs: Vital Signs Temperature 97.7 F 10/09/22 09:42 Pulse Rate 84 10/09/22 12:46 Respiratory Rate 18 10/09/22 09:42 Blood Pressure 168/73 10/09/22 12:46 Pulse Oximetry 99 10/09/22 12:46 Oxygen Delivery Me thod 10/09/22 09:42 MDM - Wound/Laceration Medical Decision Making . Because of the amount of swelling and the location of the skin crease in the plantar surface of the left third toe was difficult to so was able to approximate the edges well home. Wound care instructions given apply topical antibiotic ointment recheck in 1 week sutures out in 7 to 10 days Medical Records I reviewed the patient's medical records. Lab Data I reviewed the patient's lab results. Radiology Impressions Foot X-Ray 10/09/22 09:51 IMPRESSION: 1. No acute osseous pathology. 2. No radio-dense foreign body. Discharge Plan Discharge Patient Disposition: Home Clinical Impression: Laceration, 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 Condition: Stable Prescriptions: New mupirocin 2 % ointment 1 applic topical DAILY Qty: 15 0RF No Action gabapentin 600 mg tablet 600 mg PO DAILY docusate sodium 100 mg capsule 100 mg PO DAILY furosemide 20 mg tablet 10 mg PO QAM omeprazole 40 mg capsule,delayed release(DR/EC) 40 mg PO DAILY potassium chloride 10 mEq capsule, extended release 10 meq PO DAILY venlafaxine 150 mg capsule,extended release 24hr 150 mg PO DAILY warfarin 5 mg tablet 5 mg PO DAILY Hold Instructions: Resume on 10/13/20. ascorbic acid (vitamin C) 1,000 mg tablet 500 mg PO BID ciprofloxacin HCl 500 mg tablet 500 mg PO BID Qty: 28 6RF mupirocin 2 % ointment 1 applic topical BID Qty: 22 2RF nystatin 100,000 unit/gram ointment 1 applic topical BID Qty: 30 2RF triamcinolone acetonide 0.1 % ointment 1 applic topical BID Qty: 30 2RF Chloraseptic Max 15-10 mg lozenge 1 lona PO .q2 hr PRN (Reason: sore throat) Qty: 15 0RF (DME) Cam boot to right See Rx Instructions .Route .MEDSUPPLY Qty: 1 0RF Rx Instructions: As directed sulfamethoxazole-trimethoprim [Bactrim DS] 800-160 mg tablet 1 tab PO BID Qty: 10 0RF methenamine hippurate 1 gram tablet 1 g PO BID Qty: 60 12RF Hold Instructions: Guidelines Rx Instructions: Take 1000 mg of vitamin C with each dose of methenamine Discharge Orders: Discharge ED (Routine); Ordered 10/09/22 Ordered By: Gerson Waldron Referrals: Jennifer Ordaz MD [Primary Care Provider] - Discharge Diet: Usual diet Discharge Activity: Resume usual activity Patient Instructions: Opioid Safety, Pain Management Activity Restrictions/Additional Instructions: You are seen today for laceration of foot. There is no fracture present sutures should remain in place for 10 days. Apply topical antibiotic once to twice daily on the wound. Your doctor can remove the sutures in 10 days or they can be removed at the wound care clinic. Coding Level of Care Code ED Curing Oven Attendant for Hetal Huitron
[2022-10-09] MEDS: bacitracin ointment Pkt 1 EACH TOPICAL (12:12)
[2022-10-09] MEDS: lidocaine 1% INJ 10 mL (per mL) 20 ML INJECTION (12:13)
[2022-10-09 12:46] VITALS: BP 168/73; PULSE 84; O2SAT 99
== END 2022-10-09 12:49 | disposition home or self-care (01) ==
PROVIDERS: Emergency Provider Family Medicine; PCP Family Medicine
DX: S91.115A Laceration without foreign body of left lesser toe(s) without damage to nail, initial encounter (principal); W22.8XXA Striking against or struck by other objects, initial encounter; G82.20 Paraplegia, unspecified; Z99.3 Dependence on wheelchair; Z79.01 Long term (current) use of anticoagulants
CPT/HCPCS: 12001; 73630; 99283

== ENCOUNTER → 2022-10-12 08:01 | Outpatient (BNVA) | payer MEDICARE, MEDICAID, SELFPAY | PROVIDERS: PCP Family Medicine; Visit Provider Thoracic Surgery (Cardiothoracic Vascular Surgery) | DX: I96 Gangrene, not elsewhere classified (principal); L89.154 Pressure ulcer of sacral region, stage 4 | CPT/HCPCS: 11042; A6197; A6219; A6251 ==

== ENCOUNTER → 2022-10-19 07:55 | Outpatient (BNVA) | payer MEDICARE, MEDICAID, SELFPAY | PROVIDERS: PCP Family Medicine; Visit Provider Thoracic Surgery (Cardiothoracic Vascular Surgery) | DX: I96 Gangrene, not elsewhere classified (principal); L89.154 Pressure ulcer of sacral region, stage 4 | CPT/HCPCS: 11042; 87070; 87176; 87205; A6212 ==

== ENCOUNTER → 2022-10-24 14:14 | Outpatient (BNVA) | payer MEDICARE, MEDICAID, SELFPAY | PROVIDERS: PCP Family Medicine; Visit Provider Urology | DX: N30.20 Other chronic cystitis without hematuria (principal); Z90.49 Acquired absence of other specified parts of digestive tract; N31.9 Neuromuscular dysfunction of bladder, unspecified | CPT/HCPCS: 51705 ==

== ENCOUNTER 2022-10-30 08:03 | Outpatient (CLI) | payer MEDICARE, MEDICAID, SELFPAY ==
--- NOTE | 2022-10-30 08:00 | CT_ITS ---
WS: [id number] CT ABDOMEN PELVIS TECHNIQUE: Contrast-enhanced CT of the abdomen and pelvis with coronal and sagittal reformatted image s. CLINICAL INFORMATION: chronic osteomyelitis COMPARISON: CT October 23, 2021 DLP: 2269.[address] scans at [facility] use at least one of these dose optimization techniques: automated e xposure control; mA and/or kV adjustment per patient size (includes targeted exams where dose is matc hed to clinical indication); or iterative reconstruction. FINDINGS: Mild diffuse fatty infiltration liver. Cholecystectomy. IVC filter. Surgical clips in the pelvis. Sup rapubic catheter. Prior hysterectomy. Prior partial sacral resection with chronic changes of osteomye litis. Complete resection of the coccyx. This is similar in appearance to the prior studies. Chronic abscess associated with the posterior sacrum appears stable since February 13, 2021 measuring approxima tely 4.1 x 1.7 CM. Grade 1 anterolisthesis L5 on S1 appears stable. Chronic spondylolysis L5-S1. No e vidence of fistula formation to the rectal stump. 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 No evidence of high-grade obstruction. Normal portal vein and splenic vein. Fatty atrophy of the pancreas. Normal spleen. Small esophageal hiatal hernia. Normal caliber abdominal aorta. Norm al renal parenchymal enhancement. No hydronephrosis. No drainable fluid collections in the abdomen or pelvis. Colostomy with subtotal colon resection IMPRESSION: 1. Prior postoperative changes partial colectomy with rectal stump. Colostomy LEFT lower quadrant. 2. Prior partial sacral and complete coccyx resection with chronic abscess at the tip of the residua l sacrum unchanged since 2020 measuring 4.1 x 1.7 cm. Chronic osteomyelitis in the distal segment sac rum. No evidence of progression. 3. Stable large LEFT spigelian hernia with herniation of small and large bowel. No evidence of obstr uction. This is unchanged in appearance. 4. IVC filter. Prior cholecystectomy and hysterectomy. 5. Suprapubic catheter. 6. No evidence of new fistula at the rectal stump. 7. No other significant interval changes compared to previous.
[2022-10-30] MEDS: iohexol 350 mg/mL 500 mL Btl (per mL) IV (08:46)
== END 2022-10-30 08:04 | disposition home or self-care (01) ==
LOC: RAD 08:09
PROVIDERS: PCP Family Medicine; Visit Provider Student in an Organized Health Care Education/Training Program
DX: M86.60 Other chronic osteomyelitis, unspecified site (principal); Z90.49 Acquired absence of other specified parts of digestive tract; Z93.3 Colostomy status; M86.9 Osteomyelitis, unspecified; K43.9 Ventral hernia without obstruction or gangrene; Z90.710 Acquired absence of both cervix and uterus
CPT/HCPCS: 36415; 74177; 80053; 85025; 85651; 86140; 99214; Q9967

== ENCOUNTER → 2022-11-02 07:57 | Outpatient (BNVA) | payer MEDICARE, MEDICAID, SELFPAY | PROVIDERS: PCP Family Medicine; Visit Provider Thoracic Surgery (Cardiothoracic Vascular Surgery) | DX: I96 Gangrene, not elsewhere classified (principal); L89.154 Pressure ulcer of sacral region, stage 4 | CPT/HCPCS: 11042 ==

== ENCOUNTER 2022-11-13 07:37 | Outpatient (CLI) | payer MEDICARE, MEDICAID, SELFPAY ==
[2022-11-13 08:29] LABS: Anion Gap 13.9 (5-19); Blood Urea Nitrogen 22 mg/dL (6-20); Calcium 8.9 mg/dL (8.5-10.5); Carbon Dioxide 27 mmol/L (22-29); Chloride 103 mmol/L (98-107); Glomerular Filtration Rate 65.2 mL/min (90-130); Glucose 97 mg/dL (65-115); Osmolality Calculated 293 mOsm/kg (285-295); Potassium 3.9 mmol/L (3.5-5.1); Sodium 140 mmol/L (136-145)
== END 2022-11-13 07:38 | disposition home or self-care (01) ==
LOC: LAB 07:48
PROVIDERS: PCP Family Medicine; Visit Provider Family Medicine
DX: N28.9 Disorder of kidney and ureter, unspecified (principal)
CPT/HCPCS: 36415; 80048

== ENCOUNTER → 2022-11-16 07:41 | Outpatient (BNVA) | payer MEDICARE, MEDICAID, SELFPAY | PROVIDERS: PCP Family Medicine; Visit Provider Thoracic Surgery (Cardiothoracic Vascular Surgery) | DX: E11.621 Type 2 diabetes mellitus with foot ulcer (principal); I96 Gangrene, not elsewhere classified; L97.522 Non-pressure chronic ulcer of other part of left foot with fat layer exposed | CPT/HCPCS: 11042; A6210; A6219 ==

== ENCOUNTER 2022-11-19 08:37 | Emergency (ER) | payer MEDICARE, MEDICAID, SELFPAY ==
[2022-11-19 08:58] VITALS: BP 146/82; PULSE 69; TEMP 36.5; O2SAT 97; BMI 53.1
--- NOTE | 2022-11-19 09:22 | W.ED.FEMALGU ---
HPI - Female Genitourinary General: Chief complaint: Urogenital-Female Stated complaint: cath problems Time Seen by Provider: 11/19/22 08:47 Source: patient Mode of arrival: ambulatory History of Present Illness: 52-year-old female who presents emergency room. She has a neurogenic bladder she is wheelchair confined. She was doing 2 days see urology and have her catheter replaced she is concerned that its not been functioning properly she is generally feeling well she is considered to be positive what appears to be particulate matter in the catheter that it may be obstructed. Said some generalized pelvic discomfort as well. No fevers sweats or chills some mild flank pain. She has a history of chronic cystitis as well. MD elicited complaint: other (Catheter issue) Onset (ago): day(s) Severity: mild Quality of pain: cramping Consistency: constant Urinary symptoms: Flank Pain Relieving factors: none Associated symptoms: Deny abdominal pain, short of breath, fevers/chills, headache(s), nausea, rash, seizures, syncope or weakness Review of Systems Const: Denies: fever(s), chills, body aches, change in appetite, fatigue or malaise ENMT: Denies: throat pain, ear or mastoid pain, nasal discharge or nasal congestion Card: Denies: syncope Resp: Denies: dyspnea, productive cough or non-productive cough GI: Denies: abdominal pain or nausea : Reports: flank pain Skin/Breast: Denies: rash or pruritus Neuro: Denies: headache(s) PFSH ED PFSH: Medical History Chronic cystitis Chronic osteomyelitis Chronic venous insufficiency of lower extremity Colostomy in place Exposure to Streptococcal pharyngitis History of DVT (deep vein thrombosis) Neurogenic bladder Paraplegia 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 Pharyngitis PVD (peripheral vascular disease) Viral syndrome Surgical History S/P section S/P cholecystectomy Suprapubic catheter Family History Family/Other Diabetes Cancer CAD (coronary artery disease) Mother , at age 74 Sepsis Cancer melanoma Diabetes Father Heart disease Social History Smoking and tobacco status: never smoked Alcohol intake: never Substance/Drug Use: never Lives independently: Yes Marital status: Current occupational status: disabled Physical Exam Const: GENERAL APPEARANCE: cooperative and comfortable ORIENTATION/CONSCIOUSNESS: Yes awake, Yes oriented to person, Yes oriented to place and Yes oriented to time HENMT: COMMON NORMALS: normocephalic, atraumatic and hearing grossly normal bilaterally HEAD & SCALP: normocephalic and atraumatic Resp: COMMON NORMALS: normal respiratory effort, No retractions, No use of accessory muscles and clear to auscultation bilaterally AUSCULTATION: clear to auscultation bilaterally Cardio: COMMON NORMALS: regular rate, regular rhythm and No murmurs present (Cardio) RATE: regular rate RHYTHM: regular rhythm Extremity: COMMON NORMALS: normal to inspection, capillary refill normal, no clubbing, cyanosis or edema, no calf tenderness and no pedal edema Neuro: SENSORIUM/ORIENTATION: Yes oriented to person, Yes oriented to place and Yes oriented to time Skin: COMMON NORMALS: no rashes or lesions noted GENERAL SKIN EXAM: no rashes or lesions noted Course Vital Signs: Vital signs: Vital Signs Temperature 97.7 F 11/19/22 08:58 Pulse Rate 78 11/19/22 11:00 Respiratory Rate 16 11/19/22 11:00 Blood Pressure 146/82 11/19/22 08:58 Pulse Oximetry 97 11/19/22 11:00 Oxygen Delivery Me thod Room Air 11/19/22 10:00 MDM - Female Medical Decision Making Obstructed suprapubic catheter. After exchange patient is feeling somewhat better. Significant abnormalities in the urine however patient has chronic cystitis. At this point she does not have much for symptoms suggestive of a cystitis would recommend that she wait on the culture report before starting her on any antibiotics. She has a follow-up appoint with Dr. Noonan later this week she should keep that. Return if she develops fever or other symptoms. Medical Records I reviewed the patient's medical records. Lab Data I reviewed the patient's lab results. 11/19/22 11:45 11/19/22 11:45 Laboratory Results WBC 6.1 10^3/uL (4.0-10.0) 11/19/22 11:45 RBC 4.24 10^6/uL (4.1-5.3) 11/19/22 11:45 Hgb 12.8 g/dL (11.5-15.3) 11/19/22 11:45 Hct 40.2 % (37.0-47.0) 11/19/22 11:45 MCV 94.8 fl (81-99) 11/19/22 11:45 MCH 30.2 pg (28.0-34.0) 11/19/22 11:45 MCHC 31.8 g/dL (30.0-36.0) 11/19/22 11:45 RDW 12.9 % (12.1-15.1) 11/19/22 11:45 Plt Count 189 10^3/cmm (130-400) 11/19/22 11:45 MPV 10.3 fL (7.4-10.4) 11/19/22 11:45 Neut % (Auto) 56.7 % 11/19/22 11:45 Lymph % (Auto) 26.9 % 11/19/22 11:45 [place] % (Auto) 8.6 % 11/19/22 11:45 Eos % (Auto) 6.9 % 11/19/22 11:45 Baso % (Auto) 0.7 % 11/19/22 11:45 Neut # (Auto) 3.44 10^3/uL (1.8-7.7) 11/19/22 11:45 Lymph # (Auto) 1.6 10^3/uL (0.8-4.8) 11/19/22 11:45 [place] # (Auto) 0.5 10^3/uL (0.2-0.9) 11/19/22 11:45 Eos # (Auto) 0.4 10^3/uL (0.0-0.8) 11/19/22 11:45 Baso # (Auto) 0.0 10^3/uL (0.0-0.1) 11/19/22 11:45 Nucleated RBC % (auto) 0 % 11/19/22 11:45 Nucleated RBCs # 0.0 /100WBC 11/19/22 11:45 Sodium 138 mmol/L (136-145) 11/19/22 11:45 Potassium 3.7 mmol/L (3.5-5.1) 11/19/22 11:45 Chloride 103 mmol/L (98-107) 11/19/22 11:45 Carbon Dioxide 26 mmol/L (22-29) 11/19/22 11:45 Anion Gap 12.7 (5-19) 11/19/22 11:45 BUN 14 mg/dL (6-20) 11/19/22 11:45 Creatinine 0.6 mg/dL (0.5-0.9) 11/19/22 11:45 GFR Calculation 104.2 mL/min (90-130) 11/19/22 11:45 Glucose 110 mg/dL (65-115) 11/19/22 11:45 Calculated Osmolality 287 mOsm/kg (285-295) 11/19/22 11:45 Calcium 8.5 mg/dL (8.5-10.5) 11/19/22 11:45 Urine Color Red (Yellow) 11/19/22 11:41 Urine Appearance Bloody (CLEAR) A 11/19/22 11:41 Urine pH 5 (5-7) 11/19/22 11:41 Ur Specific [place] 1.015 (1.005-1.030) 11/19/22 11:41 Urine Protein 3+ (Negative) H 11/19/22 11:41 Urine Glucose (UA) Norm (Normal) 11/19/22 11:41 Urine Ketones Negative (Negative) 11/19/22 11:41 Urine Blood 3+ (Negative) H 11/19/22 11:41 Urine Nitrate Negative (Negative) 11/19/22 11:41 Urine Bilirubin Neg (Negative) 11/19/22 11:41 Urine Urobilinogen Norm mg/dL (Negative) 11/19/22 11:41 Ur Leukocyte Esterase Trace (Negative) H 11/19/22 11:41 Urine RBC Too numerous to cnt /hpf (0-2) H 11/19/22 11:41 Urine WBC 5-10 /hpf (0-5) H 11/19/22 11:41 Ur Squamous Epith Cells Rare /hpf (0-5) 11/19/22 11:41 Amorphous Sediment Not Reportable 11/19/22 11:41 Urine Bacteria 1+ /hpf (NONE) H 11/19/22 11:41 Discharge Plan Discharge Patient Disposition: Home Clinical Impression: Blocked suprapubic catheter, Chronic cystitis, Paraplegia, Neurogenic bladder Condition: Stable Prescriptions: No Action gabapentin 600 mg tablet 600 mg PO DAILY docusate sodium 100 mg capsule 100 mg PO DAILY furosemide 20 mg tablet 20 mg PO QPM omeprazole 40 mg capsule,delayed release(DR/EC) 40 mg PO DAILY potassium chloride 10 mEq capsule, extended release 10 meq PO DAILY venlafaxine 150 mg capsule,extended release 24hr 150 mg PO DAILY warfarin 5 mg tablet See Rx Instructions .ROUTE .COMPLEX Hold Instructions: Resume on 10/13/20. Rx Instructions: 7.5 mg on SATURDAY, SATURDAY AND SATURDAY- 5 mg all other days ascorbic acid (vitamin C) 1,000 mg tablet 500 mg PO BID baclofen 5 mg tablet 5 mg PO DAILY (DME) Cam boot to right See Rx Instructions .Route .MEDSUPPLY Qty: 1 0RF Rx Instructions: As directed methenamine hippurate 1 gram tablet 1 g PO BID Qty: 60 12RF Hold Instructions: Guidelines Rx Instructions: Take 1000 mg of vitamin C with each dose of methenamine sodium chloride 0.9 % solution 1 irrig irrigation DAILY Qty: 500 2RF gabapentin 100 mg capsule 100 mg PO QAM PRN (Reason: Pain) Discharge Orders: Discharge ED (Routine); Ordered 11/19/22 Ordered By: Gerson Waldron Referrals: Jennifer Ordaz MD [Primary Care Provider] - Discharge Diet: Usual diet Discharge Activity: Resume usual activity Patient Instructions: Opioid Safety, Pain Management Activity Restrictions/Additional Instructions: You were seen today for a blockage in your suprapubic catheter which was changed. There is chronic changes in your urine however it does not look like there is an acute infection. Culture has been done for keep your follow-up appoint with Dr. Tavarez this week return emergency room if you have further problems Coding Level of Care Code ED Blood Collector for Hetal Huitron
[2022-11-19 10:00] VITALS: RESP 18; O2SAT 98
[2022-11-19 11:00] VITALS: PULSE 78; RESP 16; O2SAT 97
[2022-11-19 11:56] LABS: Basophils % 0.7 %; Eosinophils # 0.4 10^3/uL (0.0-0.8); Eosinophils % 6.9 %; Hematocrit 40.2 % (37.0-47.0); Hemoglobin 12.8 g/dL (11.5-15.3); Lymphocytes # 1.6 10^3/uL (0.8-4.8); Lymphocytes % 26.9 %; Mean Corpuscular HGB Conc 31.8 g/dL (30.0-36.0); Mean Corpuscular Hemoglobin 30.2 pg (28.0-34.0); Mean Corpuscular Volume 94.8 fl (81-99); Mean Platelet Volume 10.3 fL (7.4-10.4); Monocytes # 0.5 10^3/uL (0.2-0.9); Monocytes % 8.6 %; Neutrophils # 3.44 10^3/uL (1.8-7.7); Neutrophils % 56.7 %; Nucleated Red Blood Cells % 0 %; Platelet Count 189 10^3/cmm (130-400); Red Blood Count 4.24 10^6/uL (4.1-5.3); Red Cell Distribution Width 12.9 % (12.1-15.1); White Blood Count 6.1 10^3/uL (4.0-10.0)
[2022-11-19 12:08] LABS: Add Urine Microscopic? YES; Bilirubin Urine Neg (Negative); Blood Urine 3+ (Negative); Glucose Urine UA Norm (Normal); Ketones Urine Negative (Negative); Leukocyte Esterase Urine Trace (Negative); Nitrate Urine Negative (Negative); Protein Urine 3+ (Negative); Specific Gravity, Urine 1.015 (1.005-1.030); Urine Appearance Bloody (CLEAR); Urine Color Red (Yellow); Urobilinogen Urine Norm (Negative); pH Urine 5 (5-7)
[2022-11-19 12:09] LABS: RBC Urine TOO NUMEROUS TO CNT /hpf (0-2); Squamous Epithelial Cell Urine RARE /hpf (0-5)
[2022-11-19 12:10] LABS: Add Urine Culture? Yes; Bacteria Urine 1+ /hpf
[2022-11-19 12:18] LABS: Anion Gap 12.7 (5-19); Blood Urea Nitrogen 14 mg/dL (6-20); Calcium 8.5 mg/dL (8.5-10.5); Carbon Dioxide 26 mmol/L (22-29); Chloride 103 mmol/L (98-107); Glomerular Filtration Rate 104.2 mL/min (90-130); Glucose 110 mg/dL (65-115); Osmolality Calculated 287 mOsm/kg (285-295); Potassium 3.7 mmol/L (3.5-5.1); Sodium 138 mmol/L (136-145)
== END 2022-11-19 12:59 | disposition home or self-care (01) ==
PROVIDERS: Emergency Provider Family Medicine; PCP Family Medicine
DX: T83.098A Other mechanical complication of other urinary catheter, initial encounter (principal); N30.20 Other chronic cystitis without hematuria; G82.20 Paraplegia, unspecified; N31.9 Neuromuscular dysfunction of bladder, unspecified; Y73.8 Miscellaneous gastroenterology and urology devices associated with adverse incidents, not elsewhere classified; Z79.01 Long term (current) use of anticoagulants
CPT/HCPCS: 36415; 51702; 80048; 81001; 85025; 87077; 87086; 87186; 99283

== ENCOUNTER → 2022-11-23 07:50 | Outpatient (BNVA) | payer MEDICARE, MEDICAID, SELFPAY | PROVIDERS: PCP Family Medicine; Visit Provider Thoracic Surgery (Cardiothoracic Vascular Surgery) | DX: I96 Gangrene, not elsewhere classified (principal); L89.154 Pressure ulcer of sacral region, stage 4 | CPT/HCPCS: 11042; A6210 ==

== ENCOUNTER 2022-11-27 07:03 | Outpatient (RCR) | payer MEDICARE, MEDICAID, SELFPAY | END 2022-12-05 23:59 | disposition home or self-care (01) | LOC: SPT 07:03 | PROVIDERS: PCP Family Medicine; Visit Provider Thoracic Surgery (Cardiothoracic Vascular Surgery) | DX: G82.20 Paraplegia, unspecified (principal) | CPT/HCPCS: 97110; 97161 ==

== ENCOUNTER 2022-12-06 06:00 | Outpatient (RCR) | payer MEDICARE, MEDICAID, SELFPAY | END 2023-01-04 23:59 | disposition home or self-care (01) | LOC: SPT 06:00 | PROVIDERS: PCP Family Medicine; Visit Provider Thoracic Surgery (Cardiothoracic Vascular Surgery) | DX: G82.20 Paraplegia, unspecified (principal) | CPT/HCPCS: 97110; 97140 ==

== ENCOUNTER → 2022-12-07 07:57 | Outpatient (BNVA) | payer MEDICARE, MEDICAID, SELFPAY | PROVIDERS: PCP Family Medicine; Visit Provider Thoracic Surgery (Cardiothoracic Vascular Surgery) | DX: I96 Gangrene, not elsewhere classified (principal); L89.154 Pressure ulcer of sacral region, stage 4 | CPT/HCPCS: 11042; A6219 ==

== ENCOUNTER → 2022-12-11 07:48 | Outpatient (BNVA) | payer MEDICARE, MEDICAID, SELFPAY | PROVIDERS: PCP Family Medicine; Visit Provider Podiatrist Foot & Ankle Surgery | DX: I73.9 Peripheral vascular disease, unspecified (principal); I89.0 Lymphedema, not elsewhere classified; I87.2 Venous insufficiency (chronic) (peripheral); L60.3 Nail dystrophy | CPT/HCPCS: 11721; 99213 ==

== ENCOUNTER → 2022-12-19 07:47 | Outpatient (BNVA) | payer MEDICARE, MEDICAID, SELFPAY | PROVIDERS: PCP Family Medicine; Visit Provider Urology | DX: N31.9 Neuromuscular dysfunction of bladder, unspecified (principal); Z93.59 Other cystostomy status | CPT/HCPCS: 51705 ==

== ENCOUNTER → 2022-12-28 07:51 | Outpatient (BNVA) | payer MEDICARE, MEDICAID, SELFPAY | PROVIDERS: PCP Family Medicine; Visit Provider Thoracic Surgery (Cardiothoracic Vascular Surgery) | DX: I96 Gangrene, not elsewhere classified (principal); L89.154 Pressure ulcer of sacral region, stage 4 | CPT/HCPCS: 97597; A6210 ==

== ENCOUNTER 2023-01-05 06:00 | Outpatient (RCR) | payer MEDICARE, MEDICAID, SELFPAY | END 2023-02-04 23:59 | disposition home or self-care (01) | LOC: SPT 06:00 | PROVIDERS: PCP Family Medicine; Visit Provider Thoracic Surgery (Cardiothoracic Vascular Surgery) | DX: G82.20 Paraplegia, unspecified (principal) | CPT/HCPCS: 97110 ==

== ENCOUNTER → 2023-01-11 07:56 | Outpatient (BNVA) | payer MEDICARE, MEDICAID, SELFPAY | PROVIDERS: PCP Family Medicine; Visit Provider Thoracic Surgery (Cardiothoracic Vascular Surgery) | DX: I96 Gangrene, not elsewhere classified (principal); L89.154 Pressure ulcer of sacral region, stage 4 | CPT/HCPCS: 11042; A6210 ==

== ENCOUNTER 2023-01-16 07:04 | Emergency (ER) | payer MEDICARE, MEDICAID, SELFPAY ==
[2023-01-16 07:10] VITALS: BMI 49.6
--- NOTE | 2023-01-16 07:11 | W.ED.FEMALGU ---
HPI - Female Genitourinary General: Chief complaint: Urogenital-Female Stated complaint: Suprapubic cath not working Time Seen by Provider: 01/16/23 07:11 Source: patient Mode of arrival: wheelchair Limitations: no limitations History of Present Illness: Patient is a 52-year-old female with a neurogenic bladder/chronic suprapubic catheter here with complaints that her catheter painful and not draining well. She states she does have urine in her leg bag but she has noticed urine draining through her urethra and has been having to wear a pad. Patient states she gets her catheter changed out monthly. She is to follow-up with Dr. Tavarez although following his detention she has not been following up with urology in [place]-Dr. Wall. She states catheter was changed out on Saturday and they used a different style of catheter. She states the catheter is very firm and uncomfortable. According to Dr. Tavarez's notes patient's bladder capacity is extremely small and the balloon fills up the entire space and its hard to distinguish between bladder and abdominal wall tunnel. Onset (ago): day(s) Vaginal discharge: none Vaginal bleeding: none Associated symptoms: Reports no associated symptoms; Deny abdominal pain or headache(s) Treatment prior to arrival: none Sexual activity: No Patient : No Review of Systems Const: Denies: fever(s), chills, body aches, fatigue or malaise Card: Denies: chest pain Resp: Denies: dyspnea GI: Denies: abdominal pain, vomiting or diarrhea : Reports: other (suprapubic cath not draining well); Denies: flank pain Neuro: Denies: headache(s) or dizziness [facility] ED PFSH: Medical History Chronic cystitis Chronic osteomyelitis Chronic venous insufficiency of lower extremity Colostomy in place Exposure to Streptococcal pharyngitis History of DVT (deep vein thrombosis) Neurogenic bladder Paraplegia 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 Pharyngitis PVD (peripheral vascular disease) Viral syndrome Surgical History S/P section S/P cholecystectomy Suprapubic catheter Family History Family/Other Diabetes Cancer CAD (coronary artery disease) Mother , at age 74 Sepsis Cancer melanoma Diabetes Father Heart disease Social History Smoking and tobacco status: never smoked Alcohol intake: never Substance/Drug Use: never Lives independently: Yes Marital status: Current occupational status: disabled Physical Exam Const: COMMON NORMALS: no acute distress, patient oriented x3, no limitations and alert GENERAL APPEARANCE: cooperative NUTRITIONAL APPEARANCE: obese morbidly obese ORIENTATION/CONSCIOUSNESS: Yes awake, Yes oriented to person, Yes oriented to place and Yes oriented to time Resp: COMMON NORMALS: normal respiratory effort and clear to auscultation bilaterally AUSCULTATION: clear to auscultation bilaterally Cardio: COMMON NORMALS: regular rate and regular rhythm RATE: regular rate RHYTHM: regular rhythm GI: COMMON NORMALS: Normal to inspection, nondistended, normoactive bowel sounds present, Soft to palpation and non-tender PALPATION: Yes Soft to palpation OTHER: large pannus with moisture/foul odor noted to fold crease; suprapubic catheter present-not much urine noted in leg bag; ostomy site appears clean : COMMON NORMALS: Yes no CVA tenderness BLADDER/KIDNEY EXAM: Yes no CVA tenderness Back/Pelvis: COMMON NORMALS: no CVA tenderness Neuro: COMMON NORMALS: patient oriented x3 SENSORIUM/ORIENTATION: Yes alert, Yes oriented to person, Yes oriented to place and Yes oriented to time Course Vital Signs: Vital signs: Vital Signs Pulse Rate 73 01/16/23 07:13 Respiratory Rate 18 01/16/23 07:13 Blood Pressure 142/83 01/16/23 07:13 Pulse Oximetry 95 01/16/23 07:13 Oxygen Delivery Me thod Room Air 01/16/23 07:13 MDM - Female Medical Decision Making Catheter was changed out at patient request as she states current one was very uncomfortable. She immediately felt better but we had some issues with urine leaking around catheter and out ostomy site. Catheter was repositioned and inflated to 10ml and this has subsided. She feels better and would like to go home. Return to ED precautions given and precautions on when to follow up with her urologist for any complications/signs of obstruction. Labs were ordered here to evaluate for kidney function but after patient was poked several times unsuccessfully, she has requested we no longer try. Ultimately she does appear to be making urine and I don't have any reason to suspect kidney injury/obstruction. Discharge Plan Discharge Patient Disposition: Home Clinical Impression: Suprapubic catheter dysfunction Qualifiers: Encounter type: initial encounter Qualified Code(s): T83.010A - Breakdown (mechanical) of cystostomy catheter, initial encounter Condition: Stable Prescriptions: No Action gabapentin 600 mg tablet 600 mg PO DAILY docusate sodium 100 mg capsule 100 mg PO DAILY furosemide 20 mg tablet 20 mg PO QPM omeprazole 40 mg capsule,delayed release(DR/EC) 40 mg PO DAILY potassium chloride 10 mEq capsule, extended release 10 meq PO DAILY venlafaxine 150 mg capsule,extended release 24hr 150 mg PO DAILY warfarin 5 mg tablet See Rx Instructions .ROUTE .COMPLEX Hold Instructions: Resume on 10/13/20. Rx Instructions: 7.5 mg on SATURDAY, SATURDAY AND SATURDAY- 5 mg all other days ascorbic acid (vitamin C) 1,000 mg tablet 500 mg PO BID baclofen 5 mg tablet 5 mg PO DAILY (DME) Cam boot to right See Rx Instructions .Route .MEDSUPPLY Qty: 1 0RF Rx Instructions: As directed methenamine hippurate 1 gram tablet 1 g PO BID Qty: 60 12RF Hold Instructions: Guidelines Rx Instructions: Take 1000 mg of vitamin C with each dose of methenamine sodium chloride 0.9 % solution 1 irrig irrigation DAILY Qty: 500 2RF gabapentin 100 mg capsule 100 mg PO QAM PRN (Reason: Pain) Discharge Orders: Discharge ED (Routine); Ordered 01/16/23 Ordered By: Corinne Venegas Referrals: Jennifer Ordaz MD [Primary Care Provider] - Activity Restrictions/Additional Instructions: As we discussed if you notice you are not filing your leg bag with urine you are also not leaking then you need to seek medical reevaluation to make sure catheter balloon is not obstructing your ureters. If you begin to leak around your catheter site make sure you are placing a barrier such as towels or Chux pads to help protect tissue and you need to return here or follow-up with your urologist so they can reposition the catheter. Coding Level of Care Code ED City Councilman for Hetal Huitron
[2023-01-16 07:13] VITALS: BP 142/83; PULSE 73; RESP 18; O2SAT 95
== END 2023-01-16 10:29 | disposition home or self-care (01) ==
PROVIDERS: Emergency Provider Physician Assistant; PCP Family Medicine
DX: T83.84XA Pain due to genitourinary prosthetic devices, implants and grafts, initial encounter (principal); G82.20 Paraplegia, unspecified; Y83.8 Other surgical procedures as the cause of abnormal reaction of the patient, or of later complication, without mention of misadventure at the time of the procedure; Z79.899 Other long term (current) drug therapy
CPT/HCPCS: 99283

== ENCOUNTER 2023-01-21 08:36 | Emergency (ER) | payer MEDICARE, MEDICAID, SELFPAY ==
[2023-01-21 08:47] VITALS: BMI 38.9
--- NOTE | 2023-01-21 08:51 | ED_ITS ---
HPI - Female Genitourinary General: Chief complaint: Urogenital-Female Stated complaint: CATHETER ISSUE Time Seen by Provider: 01/21/23 08:37 Source: patient Mode of arrival: wheelchair Limitations: no limitations History of Present Illness: Patient is a 52-year-old female presents to ED today with complaints related to her chronic suprapubic catheter. I saw patient approximately 5 days ago for a painful catheter that did not seem to be draining appropriately. She stated at that visit she was having urethral leakage. She also stated that her urologist in [place] had changed out her catheter with a more rigid one and she was having quite a bit of discomfort related to this as the catheter sits underneath her large pannus and catheter tubing was digging into her skin. Catheter was changed out here and she states she immediately felt relief. We did have some issues with leaking out of her ostomy site but catheter was repositioned with improvement. She was subsequently discharged home with instructions to follow-up with her urologist for any further issues. She states since her discharge she has continued to have urethral urine drainage and drainage from her ostomy site. She apparently contacted her urologist who stated they could not see her until mid February thus prompting her return today. No fevers/flank pain. Onset (ago): day(s) Vaginal discharge: none Vaginal bleeding: none Exacerbating factors: none Relieving factors: none Associated symptoms: Deny abdominal pain or headache(s) Sexual activity: No Patient : No Review of Systems Const: Denies: fever(s), chills or body aches Card: Denies: chest pain Resp: Denies: dyspnea GI: Denies: abdominal pain, vomiting or diarrhea : Reports: hematuria and other (suprapubic catheter leaking/non-draining); Denies: flank pain Neuro: Denies: headache(s) or dizziness PFS ED PFSH: Medical History Chronic cystitis Chronic osteomyelitis Chronic venous insufficiency of lower extremity Colostomy in place Exposure to Streptococcal pharyngitis History of DVT (deep vein thrombosis) Neurogenic bladder Paraplegia 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 Pharyngitis PVD (peripheral vascular disease) Viral syndrome Surgical History S/P section S/P cholecystectomy Suprapubic catheter Family History Family/Other Diabetes Cancer CAD (coronary artery disease) Mother , at age 74 Sepsis Cancer melanoma Diabetes Father Heart disease Social History Smoking and tobacco status: never smoked Alcohol intake: never Substance/Drug Use: never Lives independently: Yes Marital status: Current occupational status: disabled Physical Exam Const: COMMON NORMALS: no acute distress, patient oriented x3, no limitations and alert GENERAL APPEARANCE: cooperative NUTRITIONAL APPEARANCE: obese ORIENTATION/CONSCIOUSNESS: Yes awake, Yes oriented to person, Yes oriented to place and Yes oriented to time Resp: COMMON NORMALS: normal respiratory effort Cardio: COMMON NORMALS: regular rate and regular rhythm RATE: regular rate RHYTHM: regular rhythm GI: COMMON NORMALS: Soft to palpation and non-tender AUSCULTATION: Yes norm oactive bowel sounds PALPATION: Yes Soft to palpation OTHER: suprapubic catheter located under pannus; foul smelling odor and mild skin maceration/candidal infection present; small amount of blood around ostomy site; small amount of dark urine noted in leg back : COMMON NORMALS: Yes no CVA tenderness BLADDER/KIDNEY EXAM: Yes no CVA tenderness Back/Pelvis: COMMON NORMALS: no CVA tenderness Neuro: COMMON NORMALS: patient oriented x3 SENSORIUM/ORIENTATION: Yes alert, Yes oriented to person, Yes oriented to place and Yes oriented to time Course Vital Signs: Vital signs: Vital Signs Temperature 97.8 F 01/21/23 08:58 Pulse Rate 81 01/21/23 13:47 Respiratory Rate 17 01/21/23 13:47 Blood Pressure 152/101 01/21/23 13:47 Pulse Oximetry 88 L 01/21/23 13:47 Oxygen Delivery Me thod Room Air 01/21/23 10:20 MDM - Female Medical Decision Making Patient here for suprapubic catheter does not seem to be draining. Catheter was repositioned multiple times and deflated/reinflated seems clinically that we are in the bladder however cannot seem to get urine draining into her back. Ultrasound even confirms that balloon is in the urinary bladder but I still am not sure why we are not getting urine into the leg bag. She has always worn a 22 Vietnamese catheter which is the size she has now so I do not think sizing is an issue. When we irrigate it just comes out her urethra. Leg bag confirmed to be hooked up to drainage port. Vitals are normal. No fevers. Blood work including BUN/Cr are normal. I called patient's urologist's (Dr. Wall) office and spoke to their PA-C who stated they will see her in office on Saturday at 4:00. Recommended we place urethral landeros in the meantime which was completed. Patient was discharged by nursing staff prior to UA results coming back. It does look suspicious for UTI although she has chronic UTIs. Last culture grew E. coli with resistance to fluoroquinolones. She has an allergy to penicillins. We contacted the patient and I called in a prescription for Cefdinir to her [facility] pharmacy. Lab Data 01/21/23 09:22 01/21/23 09:22 Radiology Impressions Abdomen Ultrasound 01/21/23 11:11 IMPRESSION: 1. Suprapubic urinary catheter appears to be positioned in the urinary bladder. Laboratory Results WBC 5.5 10^3/uL (4.0-10.0) 01/21/23 09:22 RBC 4.37 10^6/uL (4.1-5.3) 01/21/23 09:22 Hgb 13.3 g/dL (11.5-15.3) 01/21/23 09:22 Hct 42.5 % (37.0-47.0) 01/21/23 09:22 MCV 97.3 fl (81-99) 01/21/23 09:22 MCH 30.4 pg (28.0-34.0) 01/21/23 09:22 MCHC 31.3 g/dL (30.0-36.0) 01/21/23 09:22 RDW 12.9 % (12.1-15.1) 01/21/23 09:22 Plt Count 197 10^3/cmm (130-400) 01/21/23 09:22 MPV 10.4 fL (7.4-10.4) 01/21/23 09:22 Neut % (Auto) 61.5 % 01/21/23 09:22 Lymph % (Auto) 22.5 % 01/21/23 09:22 [place] % (Auto) 9.7 % 01/21/23 09:22 Eos % (Auto) 5.7 % 01/21/23 09:22 Baso % (Auto) 0.4 % 01/21/23 09:22 Neut # (Auto) 3.37 10^3/uL (1.8-7.7) 01/21/23 09:22 Lymph # (Auto) 1.2 10^3/uL (0.8-4.8) 01/21/23 09:22 [place]ah # (Auto) 0.5 10^3/uL (0.2-0.9) 01/21/23 09:22 Eos # (Auto) 0.3 10^3/uL (0.0-0.8) 01/21/23 09:22 Baso # (Auto) 0.0 10^3/uL (0.0-0.1) 01/21/23 09:22 Nucleated RBC % (auto) 0 % 01/21/23 09:22 Nucleated RBCs # 0.0 /100WBC 01/21/23 09:22 Sodium 142 mmol/L (136-145) 01/21/23 09:22 Potassium 3.8 mmol/L (3.5-5.1) 01/21/23 09:22 Chloride 104 mmol/L (98-107) 01/21/23 09:22 Carbon Dioxide 29 mmol/L (22-29) 01/21/23 09:22 Anion Gap 12.8 (5-19) 01/21/23 09:22 BUN 17 mg/dL (6-20) 01/21/23 09:22 Creatinine 0.7 mg/dL (0.5-0.9) 01/21/23 09:22 GFR Calculation 87.2 mL/min (90-130) L 01/21/23 09:22 Glucose 94 mg/dL (65-115) 01/21/23 09:22 Calculated Osmolality 295 mOsm/kg (285-295) 01/21/23 09:22 Calcium 9.4 mg/dL (8.5-10.5) 01/21/23 09:22 Total Bilirubin 0.3 mg/dL (0.15-1.2) 01/21/23 09:22 AST 26 U/L (0-32) 01/21/23 09:22 ALT 36 U/L (0-33) H 01/21/23 09:22 Alkaline Phosphatase 104 U/L (35-105) 01/21/23 09:22 Total Protein 7.5 g/dL (6.6-8.7) 01/21/23 09:22 Albumin 3.4 g/dL (3.5-5.2) L 01/21/23 09:22 Globulin 4.1 g/dL (1.3-4.6) 01/21/23 09:22 Urine Color Red (Yellow) 01/21/23 13:16 Urine Appearance Cloudy (CLEAR) A 01/21/23 13:16 Urine pH 8 (5-7) H 01/21/23 13:16 Ur Specific [place] 1.010 (1.005-1.030) 01/21/23 13:16 Urine Protein 3+ (Negative) H 01/21/23 13:16 Urine Glucose (UA) Norm (Normal) 01/21/23 13:16 Urine Ketones Negative (Negative) 01/21/23 13:16 Urine Blood 3+ (Negative) H 01/21/23 13:16 Urine Nitrate Positive (Negative) H 01/21/23 13:16 Urine Bilirubin Neg (Negative) 01/21/23 13:16 Urine Urobilinogen Norm mg/dL (Negative) 01/21/23 13:16 Ur Leukocyte Esterase 2+ (Negative) H 01/21/23 13:16 Urine RBC 15-25 /hpf (0-2) H 01/21/23 13:16 Urine WBC 15-25 /hpf (0-5) H 01/21/23 13:16 Ur Squamous Epith Cells 5-10 /hpf (0-5) H 01/21/23 13:16 Amorphous Sediment Not Reportable 01/21/23 13:16 Urine Bacteria 2+ /hpf (NONE) H 01/21/23 13:16 Discharge Plan Discharge Patient Disposition: Home Clinical Impression: Neurogenic bladder Suprapubic catheter dysfunction Qualifiers: Encounter type: initial encounter Qualified Code(s): T83.010A - Breakdown (mechanical) of cystostomy catheter, initial encounter Condition: Stable Prescriptions: New nystatin 100,000 unit/gram powder 1 applic topical BID Qty: 60 0RF No Action gabapentin 600 mg tablet 600 mg PO DAILY docusate sodium 100 mg capsule 100 mg PO DAILY furosemide 20 mg tablet 20 mg PO QPM omeprazole 40 mg capsule,delayed release(DR/EC) 40 mg PO DAILY potassium chloride 10 mEq capsule, extended release 10 meq PO DAILY venlafaxine 150 mg capsule,extended release 24hr 150 mg PO DAILY warfarin 5 mg tablet See Rx Instructions .ROUTE .COMPLEX Hold Instructions: Resume on 10/13/20. Rx Instructions: 7.5 mg on SATURDAY, SATURDAY AND SATURDAY- 5 mg all other days ascorbic acid (vitamin C) 1,000 mg tablet 500 mg PO BID baclofen 5 mg tablet 5 mg PO DAILY (DME) Cam boot to right See Rx Instructions .Route .MEDSUPPLY Qty: 1 0RF Rx Instructions: As directed methenamine hippurate 1 gram tablet 1 g PO BID Qty: 60 12RF Hold Instructions: Guidelines Rx Instructions: Take 1000 mg of vitamin C with each dose of methenamine sodium chloride 0.9 % solution 1 irrig irrigation DAILY Qty: 500 2RF gabapentin 100 mg capsule 100 mg PO QAM PRN (Reason: Pain) Discharge Orders: Discharge ED (Routine); Ordered 01/21/23 Ordered By: Corinne Venegas Referrals: Jennifer Ordaz MD [Primary Care Provider] - Activity Restrictions/Additional Instructions: As we discussed Dr. Wall's office will see you Saturday at 4:00 for further evaluation/management of your suprapubic catheter. We have placed a urethral c atheter in the meantime as your suprapubic catheter does not seem to be draining. As we discussed you need to start putting a towel/sheet/pad underneath your pannus to protect tissue and keep it from moisture. I have provided you a prescription for nystatin powder to start using twice daily. Coding Level of Care Code ED Training And Documentation Specialist for Hetal Huitron
[2023-01-21 08:58] VITALS: BP 122/77; PULSE 79; RESP 20; TEMP 36.6; O2SAT 94
[2023-01-21 09:36] LABS: Basophils % 0.4 %; Eosinophils # 0.3 10^3/uL (0.0-0.8); Eosinophils % 5.7 %; Hematocrit 42.5 % (37.0-47.0); Hemoglobin 13.3 g/dL (11.5-15.3); Lymphocytes # 1.2 10^3/uL (0.8-4.8); Lymphocytes % 22.5 %; Mean Corpuscular HGB Conc 31.3 g/dL (30.0-36.0); Mean Corpuscular Hemoglobin 30.4 pg (28.0-34.0); Mean Corpuscular Volume 97.3 fl (81-99); Mean Platelet Volume 10.4 fL (7.4-10.4); Monocytes # 0.5 10^3/uL (0.2-0.9); Monocytes % 9.7 %; Neutrophils # 3.37 10^3/uL (1.8-7.7); Neutrophils % 61.5 %; Nucleated Red Blood Cells % 0 %; Platelet Count 197 10^3/cmm (130-400); Red Blood Count 4.37 10^6/uL (4.1-5.3); Red Cell Distribution Width 12.9 % (12.1-15.1); White Blood Count 5.5 10^3/uL (4.0-10.0)
[2023-01-21 09:51] LABS: Albumin Level 3.4 g/dL (3.5-5.2); Alkaline Phosphatase 104 U/L (35-105); Anion Gap 12.8 (5-19); Aspartate Amino Transferase 26 U/L (0-32); Blood Urea Nitrogen 17 mg/dL (6-20); Calcium 9.4 mg/dL (8.5-10.5); Carbon Dioxide 29 mmol/L (22-29); Chloride 104 mmol/L (98-107); Globulin 4.1 g/dL (1.3-4.6); Glomerular Filtration Rate 87.2 mL/min (90-130); Glucose 94 mg/dL (65-115); Osmolality Calculated 295 mOsm/kg (285-295); Potassium 3.8 mmol/L (3.5-5.1); Sodium 142 mmol/L (136-145); Total Bilirubin 0.3 mg/dL (0.15-1.2); Total Protein 7.5 g/dL (6.6-8.7)
[2023-01-21 10:01] LABS: Alanine Aminotransferase 36 U/L (0-33)
[2023-01-21 10:20] VITALS: BP 158/98; PULSE 83; RESP 18; O2SAT 94
--- NOTE | 2023-01-21 11:11 | US_ITS ---
WS: [id number] Exam: US abdomen limited [id number] Date/Time of Exam: 01/21/2023 11:19 AM Reason For Exam: suprapubic catheter placement A limited exam of the anterior lower pelvic region was performed for determination of urinary suprapu bic catheter position. A suprapubic catheter bulb is noted in the collapsed urinary bladder. Detail of the bladder is limite d due to suboptimal distention. US/US abdomen limited [id number] IMPRESSION: 1. Suprapubic urinary catheter appears to be positioned in the urinary bladder.
--- NOTE | 2023-01-21 11:20 | PC.NURSE ---
ED PHYSICIAN PRESENT FOR ATTEMPT TO RELOCATE CATHETER FOR PROPER URINATION. PHYSICIAN ATTEMPTED TO RELOCATE AND IRRIGATE CATHETER TO FIND PROPER LOCATION FOR VOIDING. ATTEMPT UNSUCCESSFUL.
[2023-01-21 13:35] LABS: Urine Appearance Cloudy (CLEAR); Urine Color Red (Yellow); pH Urine 8 (5-7)
[2023-01-21 13:36] LABS: Add Urine Microscopic? YES; Bilirubin Urine Neg (Negative); Blood Urine 3+ (Negative); Glucose Urine UA Norm (Normal); Ketones Urine Negative (Negative); Leukocyte Esterase Urine 2+ (Negative); Nitrate Urine Positive (Negative); Protein Urine 3+ (Negative); RBC Urine 15-25 /hpf (0-2); Urobilinogen Urine Norm (Negative); WBC Urine 15-25 /hpf (0-5)
[2023-01-21 13:37] LABS: Add Urine Culture? Yes; Bacteria Urine 2+ /hpf
[2023-01-21 13:47] VITALS: BP 152/101; PULSE 81; RESP 17; O2SAT 88
== END 2023-01-21 13:49 | disposition home or self-care (01) ==
PROVIDERS: Emergency Provider Physician Assistant; PCP Family Medicine
DX: T83.010A Breakdown (mechanical) of cystostomy catheter, initial encounter (principal); N31.9 Neuromuscular dysfunction of bladder, unspecified; Z79.01 Long term (current) use of anticoagulants; G82.20 Paraplegia, unspecified; Y73.8 Miscellaneous gastroenterology and urology devices associated with adverse incidents, not elsewhere classified
CPT/HCPCS: 36415; 51702; 76705; 80053; 81001; 85025; 87077; 87086; 87186; 99283; 99284

== ENCOUNTER → 2023-02-01 07:51 | Outpatient (BNVA) | payer MEDICARE, MEDICAID, SELFPAY | PROVIDERS: PCP Family Medicine; Visit Provider Thoracic Surgery (Cardiothoracic Vascular Surgery) | DX: I96 Gangrene, not elsewhere classified (principal); L89.154 Pressure ulcer of sacral region, stage 4 | CPT/HCPCS: 11042 ==

== ENCOUNTER → 2023-02-15 07:44 | Outpatient (BNVA) | payer MEDICARE, MEDICAID, SELFPAY | PROVIDERS: PCP Family Medicine; Visit Provider Thoracic Surgery (Cardiothoracic Vascular Surgery) | DX: L89.154 Pressure ulcer of sacral region, stage 4 (principal) | CPT/HCPCS: 11042; A6210; A6251; A6252 ==

== ENCOUNTER 2023-02-26 07:35 | Emergency (ER) | payer MEDICARE, MEDICAID, SELFPAY ==
[2023-02-26 07:39] VITALS: BP 147/87; PULSE 75; RESP 18; TEMP 36.7; O2SAT 92; BMI 53.1
--- NOTE | 2023-02-26 08:10 | ED_ITS ---
HPI - Female Genitourinary General: Chief complaint: Urogenital-Female Stated complaint: cath issues with pain Time Seen by Provider: 02/26/23 07:36 Source: patient Mode of arrival: wheelchair History of Present Illness: 52-year-old female presents to the emergency room complaining of difficulties with catheters as well as back pain. 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 She is trying to get into urologist but because our local urologist retired recently and she will have to travel to see urologist this has been logistically a pretty significant challenge for her. She is denying any fevers sweats or chills. He does have a significant sacral ulcer with tunneling that she has been seeing wound care for regularly. As described in their notes is a stage IV ulcer. Onset (ago): day(s) Urinary symptoms: Hematuria Exacerbating factors: none Relieving factors: none Associated symptoms: Reports other (Back pain suprapubic discomfort); Deny abdominal pain or nausea Treatment prior to arrival: none Review of Systems Const: Denies: fever(s), chills, body aches, change in appetite, fatigue or malaise Card: Denies: chest pain, edema, dyspnea on exertion or orthopnea Resp: Denies: dyspnea, productive cough or non-productive cough GI: Denies: abdominal pain, nausea or vomiting : Reports: hematuria and other (Chronic catheter Mahajan and suprapubic) Skin/Breast: Denies: rash or pruritus PFSH ED PFSH: Medical History Chronic cystitis Chronic osteomyelitis Chronic venous insufficiency of lower extremity Colostomy in place Exposure to Streptococcal pharyngitis History of DVT (deep vein thrombosis) Neurogenic bladder Paraplegia 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 Pharyngitis PVD (peripheral vascular disease) Viral syndrome Surgical History S/P section S/P cholecystectomy Suprapubic catheter Family History Family/Other Diabetes Cancer CAD (coronary artery disease) Mother , at age 74 Sepsis Cancer melanoma Diabetes Father Heart disease Social History Smoking and tobacco status: never smoked Alcohol intake: never Substance/Drug Use: never Lives independently: Yes Marital status: Current occupational status: disabled Physical Exam Const: GENERAL APPEARANCE: cooperative and comfortable ORIENTATION/CONSCIOUSNESS: Yes awake, Yes oriented to person, Yes oriented to place and Yes oriented to time HENMT: COMMON NORMALS: normocephalic, atraumatic and hearing grossly normal bilaterally HEAD & SCALP: normocephalic and atraumatic Resp: COMMON NORMALS: normal respiratory effort, No retractions, No use of accessory muscles and clear to auscultation bilaterally AUSCULTATION: clear to auscultation bilaterally Cardio: COMMON NORMALS: regular rate, regular rhythm and No murmurs present (Cardio) RATE: regular rate RHYTHM: regular rhythm Extremity: COMMON NORMALS: normal to inspection, capillary refill normal and no calf tenderness Neuro: SENSORIUM/ORIENTATION: Yes oriented to person, Yes oriented to place and Yes oriented to time Course Vital Signs: Vital signs: Vital Signs Temperature 98.0 F 02/26/23 07:39 Pulse Rate 73 02/26/23 08:40 Respiratory Rate 18 02/26/23 07:39 Blood Pressure 147/87 02/26/23 08:40 Pulse Oximetry 94 02/26/23 08:40 Oxygen Delivery Me thod Room Air 02/26/23 08:40 MDM - Female Medical Decision Making Urine sample drawn from each catheter. Show signs of infection patient is likely chronically colonized with her new back pain suspect she may have an active infection white count is not elevated. Will start on Bactrim DS 1 p.o. twice daily 10 days hold the methenamine. As to her catheters in the past according to notes have had difficulty placing them her bladder has atrophied and is barely large enough to hold the balloons from the catheter. In the past is required cystoscope to replace her catheters. Catheters were not exchanged during this visit. We did have case management confirmed appointment for Saturday morning at 930 with [facility] urology. Patient has been made aware. We have also had her sign release of records so we can forward the records to the new urologist office. Medical Records I reviewed the patient's medical records. Lab Data I reviewed the patient's lab results. 02/26/23 08:46 02/26/23 08:46 Laboratory Results WBC 4.9 10^3/uL (4.0-10.0) 02/26/23 08:46 RBC 3.87 10^6/uL (4.1-5.3) L 02/26/23 08:46 Hgb 11.8 g/dL (11.5-15.3) 02/26/23 08:46 Hct 37.2 % (37.0-47.0) 02/26/23 08:46 MCV 96.1 fl (81-99) 02/26/23 08:46 MCH 30.5 pg (28.0-34.0) 02/26/23 08:46 MCHC 31.7 g/dL (30.0-36.0) 02/26/23 08:46 RDW 13.8 % (12.1-15.1) 02/26/23 08:46 Plt Count 195 10^3/cmm (130-400) 02/26/23 08:46 MPV 10.1 fL (7.4-10.4) 02/26/23 08:46 Neut % (Auto) 61.0 % 02/26/23 08:46 Lymph % (Auto) 24.8 % 02/26/23 08:46 [place] % (Auto) 6.9 % 02/26/23 08:46 Eos % (Auto) 6.5 % 02/26/23 08:46 Baso % (Auto) 0.4 % 02/26/23 08:46 Neut # (Auto) 2.99 10^3/uL (1.8-7.7) 02/26/23 08:46 Lymph # (Auto) 1.2 10^3/uL (0.8-4.8) 02/26/23 08:46 [place] # (Auto) 0.3 10^3/uL (0.2-0.9) 02/26/23 08:46 Eos # (Auto) 0.3 10^3/uL (0.0-0.8) 02/26/23 08:46 Baso # (Auto) 0.0 10^3/uL (0.0-0.1) 02/26/23 08:46 Nucleated RBC % (auto) 0 % 02/26/23 08:46 Nucleated RBCs # 0.0 /100WBC 02/26/23 08:46 Sodium 141 mmol/L (136-145) 02/26/23 08:46 Potassium 3.4 mmol/L (3.5-5.1) L 02/26/23 08:46 Chloride 105 mmol/L (98-107) 02/26/23 08:46 Carbon Dioxide 28 mmol/L (22-29) 02/26/23 08:46 Anion Gap 11.4 (5-19) 02/26/23 08:46 BUN 13 mg/dL (6-20) 02/26/23 08:46 Creatinine 0.6 mg/dL (0.5-0.9) 02/26/23 08:46 GFR Calculation 104.2 mL/min (90-130) 02/26/23 08:46 Glucose 123 mg/dL (65-115) H 02/26/23 08:46 Calculated Osmolality 293 mOsm/kg (285-295) 02/26/23 08:46 Calcium 8.8 mg/dL (8.5-10.5) 02/26/23 08:46 Total Bilirubin 0.3 mg/dL (0.15-1.2) 02/26/23 08:46 AST 21 U/L (0-32) 02/26/23 08:46 ALT 28 U/L (0-33) 02/26/23 08:46 Alkaline Phosphatase 86 U/L (35-105) 02/26/23 08:46 Total Protein 7.0 g/dL (6.6-8.7) 02/26/23 08:46 Albumin 3.5 g/dL (3.5-5.2) 02/26/23 08:46 Globulin 3.5 g/dL (1.3-4.6) 02/26/23 08:46 Urine Color Yellow (Yellow) 02/26/23 08:30 Urine Color Yellow (Yellow) 02/26/23 08:30 Urine Appearance Cloudy (CLEAR) A 02/26/23 08:30 Urine Appearance Cloudy (CLEAR) A 02/26/23 08:30 Urine pH 7 (5-7) 02/26/23 08:30 Urine pH 9 (5-7) H 02/26/23 08:30 Ur Specific [place] 1.005 (1.005-1.030) 02/26/23 08:30 Ur Specific [place] 1.010 (1.005-1.030) 02/26/23 08:30 Urine Protein 2+ (Negative) H 02/26/23 08:30 Urine Protein 2+ (Negative) H 02/26/23 08:30 Urine Glucose (UA) Norm (Normal) 02/26/23 08:30 Urine Glucose (UA) Norm (Normal) 02/26/23 08:30 Urine Ketones Negative (Negative) 02/26/23 08:30 Urine Ketones Negative (Negative) 02/26/23 08:30 Urine Blood 3+ (Negative) H 02/26/23 08:30 Urine Blood 3+ (Negative) H 02/26/23 08:30 Urine Nitrate Positive (Negative) H 02/26/23 08:30 Urine Nitrate Positive (Negative) H 02/26/23 08:30 Urine Bilirubin Neg (Negative) 02/26/23 08:30 Urine Bilirubin Neg (Negative) 02/26/23 08:30 Prot Sulfosalicylic Acd Positive (Negative) 02/26/23 08:30 Urine Urobilinogen Norm mg/dL (Negative) 02/26/23 08:30 Urine Urobilinogen Norm mg/dL (Negative) 02/26/23 08:30 Ur Leukocyte Esterase 2+ (Negative) H 02/26/23 08:30 Ur Leukocyte Esterase 2+ (Negative) H 02/26/23 08:30 Ur Microscopic Indic Cancelled 02/26/23 08:30 Ur Microscopic Indic Cancelled 02/26/23 08:30 Urine RBC >100 /hpf (0-2) H 02/26/23 08:30 Urine RBC >100 /hpf (0-2) H 02/26/23 08:30 Urine WBC 5-10 /hpf (0-5) H 02/26/23 08:30 Urine WBC Too numerous to cnt /hpf (0-5) H 02/26/23 08:30 Ur Squamous Epith Cells 0-4 /hpf (0-5) H 02/26/23 08:30 Ur Squamous Epith Cells Rare /hpf (0-5) 02/26/23 08:30 Ur Transition Epith Cell 0-4 /hpf 02/26/23 08:30 Triple Phos Crystals 5-10 /hpf H 02/26/23 08:30 Amorphous Sediment 1+ /hpf 02/26/23 08:30 Amorphous Sediment Trace /hpf 02/26/23 08:30 Urine Bacteria 3+ /hpf (NONE) H 02/26/23 08:30 Urine Bacteria 3+ /hpf (NONE) H 02/26/23 08:30 Discharge Plan Discharge Patient Disposition: Home Clinical Impression: Urinary tract infection, Neurogenic bladder Condition: Stable Prescriptions: New Bactrim DS 800-160 mg tablet 1 tab PO DAILY 10 Days Qty: 20 0RF No Action gabapentin 600 mg tablet 600 mg PO BEDTIME docusate sodium 100 mg capsule 100 mg PO BEDTIME furosemide 20 mg tablet 20 mg PO BID omeprazole 40 mg capsule,delayed release(DR/EC) 40 mg PO BEDTIME potassium chloride 10 mEq capsule, extended release 20 meq PO BEDTIME venlafaxine 150 mg capsule,extended release 24hr 150 mg PO BEDTIME ascorbic acid (vitamin C) 1,000 mg tablet 1,000 mg PO BID (DME) Cam boot to right See Rx Instructions .Route .MEDSUPPLY Qty: 1 0RF Rx Instructions: As directed methenamine hippurate 1 gram tablet 1 g PO BID Qty: 60 12RF Hold Instructions: Guidelines Rx Instructions: Take 1000 mg of vitamin C with each dose of methenamine sodium chloride 0.9 % solution 1 irrig irrigation DAILY Qty: 500 2RF gabapentin 100 mg capsule 100 mg PO QAM PRN (Reason: Pain) nystatin 100,000 unit/gram powder 1 applic topical BID Qty: 60 0RF baclofen 20 mg tablet 20 mg PO BEDTIME warfarin 1 mg tablet See Rx Instructions .ROUTE .COMPLEX Rx Instructions: TAKE 5MG PO FIVE DAYS A WEEK AND 1MG TWO DAYS A WEEK Discharge Orders: Discharge ED (Routine); Ordered 02/26/23 Ordered By: Gerson Waldron Referrals: Jennifer Ordaz MD [Primary Care Provider] - Discharge Diet: Usual diet Discharge Activity: Resume usual activity Patient Instructions: Opioid Safety, Pain Management Activity Restrictions/Additional Instructions: Urine shows signs of bladder infection. Because of your neurogenic bladder and the difficulty you have had in the past with changing catheters that should be done by urologist with the ability to do cystoscopy to confirm placement. Will have case management help you make arrangements for near-term follow-up. Coding Level of Care Code ED Wardrobe Specialty Worker for Hetal Huitron
[2023-02-26 08:40] VITALS: BP 147/87; PULSE 73; O2SAT 94
[2023-02-26 08:56] LABS: Basophils % 0.4 %; Eosinophils # 0.3 10^3/uL (0.0-0.8); Eosinophils % 6.5 %; Hematocrit 37.2 % (37.0-47.0); Hemoglobin 11.8 g/dL (11.5-15.3); Lymphocytes # 1.2 10^3/uL (0.8-4.8); Lymphocytes % 24.8 %; Mean Corpuscular HGB Conc 31.7 g/dL (30.0-36.0); Mean Corpuscular Hemoglobin 30.5 pg (28.0-34.0); Mean Corpuscular Volume 96.1 fl (81-99); Mean Platelet Volume 10.1 fL (7.4-10.4); Monocytes # 0.3 10^3/uL (0.2-0.9); Monocytes % 6.9 %; Neutrophils # 2.99 10^3/uL (1.8-7.7); Nucleated Red Blood Cells % 0 %; Platelet Count 195 10^3/cmm (130-400); Red Blood Count 3.87 10^6/uL (4.1-5.3); Red Cell Distribution Width 13.8 % (12.1-15.1); White Blood Count 4.9 10^3/uL (4.0-10.0)
[2023-02-26 09:26] LABS: Alanine Aminotransferase 28 U/L (0-33); Albumin Level 3.5 g/dL (3.5-5.2); Alkaline Phosphatase 86 U/L (35-105); Anion Gap 11.4 (5-19); Aspartate Amino Transferase 21 U/L (0-32); Blood Urea Nitrogen 13 mg/dL (6-20); Calcium 8.8 mg/dL (8.5-10.5); Carbon Dioxide 28 mmol/L (22-29); Chloride 105 mmol/L (98-107); Globulin 3.5 g/dL (1.3-4.6); Glomerular Filtration Rate 104.2 mL/min (90-130); Glucose 123 mg/dL (65-115); Osmolality Calculated 293 mOsm/kg (285-295); Potassium 3.4 mmol/L (3.5-5.1); Sodium 141 mmol/L (136-145); Total Bilirubin 0.3 mg/dL (0.15-1.2)
[2023-02-26 09:47] LABS: Bilirubin Urine Neg (Negative); Blood Urine 3+ (Negative); Glucose Urine UA Norm (Normal); Ketones Urine Negative (Negative); Leukocyte Esterase Urine 2+ (Negative); Nitrate Urine Positive (Negative); Protein Urine 2+ (Negative); Urine Appearance Cloudy (CLEAR); Urine Color Yellow (Yellow); Urobilinogen Urine Norm (Negative); pH Urine 9 (5-7)
--- NOTE | 2023-02-26 09:58 | PC.PHAR ---
PT AND PTS DAUGHTER LUCIANO [phone] VERIFIED PTS MEDICATIONS-PT AND PTS DAUGHTER STATES THEY ARE UNSURE WHAT 5 DAYS A WEEK THE PT TAKES THE WARFARIN 5MG AND WHAT 2 DAYS THE PT TAKES 1MG OF WARFARIN-PTS DAUGHTER STATES THE PT TAKES KCL 20MEQ DAILY RX FILLED 10MEQ TID 02/23/23 30D/S-NOTES ARE MADE IN THE PHARMACY COMMENTS
[2023-02-26 10:08] LABS: Bacteria Urine 3+ /hpf; RBC Urine >100 /hpf (0-2); Squamous Epithelial Cell Urine 0-4 /hpf (0-5); Sulfosalicylic Acid Urine Positive (Negative)
[2023-02-26 10:09] LABS: Add Urine Culture? Yes; Amorphous Sediment Urine TRACE /hpf; Bilirubin Urine Neg (Negative); Blood Urine 3+ (Negative); Glucose Urine UA Norm (Normal); Ketones Urine Negative (Negative); Nitrate Urine Positive (Negative); Protein Urine 2+ (Negative); Specific Gravity, Urine 1.005 (1.005-1.030); Urine Appearance Cloudy (CLEAR); Urine Color Yellow (Yellow); Urobilinogen Urine Norm (Negative); pH Urine 7 (5-7)
[2023-02-26 10:10] LABS: Leukocyte Esterase Urine 2+ (Negative)
[2023-02-26 10:16] LABS: RBC Urine >100 /hpf (0-2)
[2023-02-26 10:17] LABS: Add Urine Culture? Yes; Amorphous Sediment Urine 1+ /hpf; Bacteria Urine 3+ /hpf; Squamous Epithelial Cell Urine RARE /hpf (0-5); Transitional Epi Cells Urine 0-4 /hpf; WBC Urine TOO NUMEROUS TO CNT /hpf (0-5)
[2023-02-26 10:38] VITALS: BP 147/95; PULSE 73; O2SAT 95
--- NOTE | 2023-02-26 10:43 | DCPLANNER ---
Addendum entered by Maureen Mcdonald 03/07/23 10:09: manager personnel selection called [facility] to confirm that clinic had received patients information, caseworker was told that clinic had received patients information. Original Note: manager personnel selection was asked to help schedule a follow up appointment for patient with [facility]. manager personnel selection called [facility], a follow up appointment is scheduled for Saturday, March 01, 2023 at 9:50. manager personnel selection updated ER physician and the patient of the scheduled appointment. [facility] stated that they needed patients records from [facility] before they could see patient. manager personnel selection had patient sign a medical release form, this was faxed to medical records so that records could be sent to [facility]. manager personnel selection faxed patients records from todays visit to the clinic.
== END 2023-02-26 10:41 | disposition home or self-care (01) ==
PROVIDERS: Emergency Provider Family Medicine; PCP Family Medicine
DX: N30.90 Cystitis, unspecified without hematuria (principal)
CPT/HCPCS: 36415; 80053; 81001; 85025; 87077; 87086; 87186; 99283

== ENCOUNTER → 2023-03-08 07:56 | Outpatient (BNVA) | payer MEDICARE, MEDICAID, SELFPAY | PROVIDERS: PCP Family Medicine; Visit Provider Thoracic Surgery (Cardiothoracic Vascular Surgery) | DX: L89.154 Pressure ulcer of sacral region, stage 4 (principal) | CPT/HCPCS: 11042; A6210; A6252 ==

== ENCOUNTER → 2023-03-12 07:50 | Outpatient (BNVA) | payer MEDICARE, MEDICAID, SELFPAY | PROVIDERS: PCP Family Medicine; Visit Provider Podiatrist Foot & Ankle Surgery | DX: I73.9 Peripheral vascular disease, unspecified (principal); I89.0 Lymphedema, not elsewhere classified; I87.2 Venous insufficiency (chronic) (peripheral); L60.3 Nail dystrophy | CPT/HCPCS: 99213 ==

== ENCOUNTER 2023-03-12 08:23 | Outpatient (CLI) | payer MEDICARE, MEDICAID, SELFPAY ==
[2023-03-12 09:10] LABS: Basophils % 0.6 %; Eosinophils # 0.3 10^3/uL (0.0-0.8); Hematocrit 40.2 % (36-47); Lymphocytes # 1.4 10^3/uL (0.8-4.8); Lymphocytes % 28.6 %; Mean Corpuscular HGB Conc 32.1 g/dL (30-55); Mean Corpuscular Hemoglobin 31.5 pg (27-33); Mean Corpuscular Volume 98.3 fl (85-98); Mean Platelet Volume 9.9 fL (7.4-10.4); Monocytes # 0.3 10^3/uL (0.2-0.9); Monocytes % 6.2 %; Neutrophils # 2.83 10^3/uL (1.8-7.7); Neutrophils % 58.2 %; Nucleated Red Blood Cells % 0 %; Platelet Count 324 10^3/cmm (157-399); Red Blood Count 4.09 10^6/uL (3.85-5.65); Red Cell Distribution Width 13.5 % (12.1-15.1); White Blood Count 4.86 10^3/uL (3.29-11.43)
[2023-03-12 09:37] LABS: Alanine Aminotransferase 52 U/L (0-33); Albumin Level 3.9 g/dL (3.5-5.2); Alkaline Phosphatase 97 U/L (35-105); Blood Urea Nitrogen 19 mg/dL (6-20); Calcium 8.9 mg/dL (8.5-10.5); Carbon Dioxide 29 mmol/L (22-29); Chloride 102 mmol/L (98-107); Globulin 3.7 g/dL (1.3-4.6); Glucose 120 mg/dL (65-115); Osmolality Calculated 291 mOsm/kg (285-295); Sodium 139 mmol/L (136-145); Total Bilirubin 0.2 mg/dL (0.15-1.2); Total Protein 7.6 g/dL (6.6-8.7)
[2023-03-12 09:40] LABS: Aspartate Amino Transferase 45 U/L (0-32)
[2023-03-12 09:53] LABS: 25 Hydroxy Vitamin D 20 ng/mL (30-100)
== END 2023-03-12 08:24 | disposition home or self-care (01) ==
PROVIDERS: PCP Family Medicine
DX: E66.01 Morbid (severe) obesity due to excess calories (principal); Z68.43 Body mass index [BMI] 50.0-59.9, adult
CPT/HCPCS: 36415; 80053; 82306; 85025

== ENCOUNTER → 2023-03-22 07:41 | Outpatient (BNVA) | payer MEDICARE, MEDICAID, SELFPAY | PROVIDERS: PCP Family Medicine; Visit Provider Nurse Practitioner Family | DX: I96 Gangrene, not elsewhere classified (principal); L89.154 Pressure ulcer of sacral region, stage 4 | CPT/HCPCS: 11042; A6210; A6219; A6251 ==

== ENCOUNTER → 2023-04-05 07:40 | Outpatient (BNVA) | payer MEDICARE, MEDICAID, SELFPAY | PROVIDERS: PCP Family Medicine; Visit Provider Thoracic Surgery (Cardiothoracic Vascular Surgery) | DX: L89.154 Pressure ulcer of sacral region, stage 4 (principal) | CPT/HCPCS: 87070; 87176; 87205; 97597; A6210; A6219; A6252 ==

== ENCOUNTER → 2023-04-19 07:52 | Outpatient (BNVA) | payer MEDICARE, MEDICAID, SELFPAY | PROVIDERS: PCP Family Medicine; Visit Provider Thoracic Surgery (Cardiothoracic Vascular Surgery) | DX: L89.154 Pressure ulcer of sacral region, stage 4 (principal) | CPT/HCPCS: 97597; A6210; A6220; A6251 ==

== ENCOUNTER → 2023-04-25 12:06 | Outpatient (BNVA) | payer MEDICARE, MEDICAID, SELFPAY | PROVIDERS: PCP Family Medicine; Visit Provider Internal Medicine | DX: Z86.718 Personal history of other venous thrombosis and embolism (principal) | CPT/HCPCS: 99214 ==

== ENCOUNTER → 2023-05-03 08:02 | Outpatient (BNVA) | payer MEDICARE, MEDICAID, SELFPAY | PROVIDERS: PCP Family Medicine; Visit Provider Nurse Practitioner Family | DX: L89.154 Pressure ulcer of sacral region, stage 4 (principal) | CPT/HCPCS: 11042; A6210; A6220 ==

== ENCOUNTER → 2023-05-17 07:52 | Outpatient (BNVA) | payer MEDICARE, MEDICAID, SELFPAY | PROVIDERS: PCP Family Medicine; Visit Provider Thoracic Surgery (Cardiothoracic Vascular Surgery) | DX: L89.154 Pressure ulcer of sacral region, stage 4 (principal) | CPT/HCPCS: 97597; A6197; A6251 ==

== ENCOUNTER → 2023-05-24 07:54 | Outpatient (BNVA) | payer MEDICARE, MEDICAID, SELFPAY | PROVIDERS: PCP Family Medicine; Visit Provider Thoracic Surgery (Cardiothoracic Vascular Surgery) | DX: L89.154 Pressure ulcer of sacral region, stage 4 (principal) | CPT/HCPCS: 97597; 99212; A6210; A6219 ==

== ENCOUNTER → 2023-06-05 08:25 | Outpatient (BNVA) | payer MEDICARE, MEDICAID, SELFPAY | PROVIDERS: PCP Family Medicine; Visit Provider Nurse Practitioner Family | DX: I96 Gangrene, not elsewhere classified (principal); L89.154 Pressure ulcer of sacral region, stage 4 | CPT/HCPCS: 97597; A6197 ==

== ENCOUNTER → 2023-06-11 07:34 | Outpatient (BNVA) | payer MEDICARE, MEDICAID, SELFPAY | PROVIDERS: PCP Family Medicine; Visit Provider Podiatrist Foot & Ankle Surgery | DX: I73.9 Peripheral vascular disease, unspecified (principal); I89.0 Lymphedema, not elsewhere classified; I87.2 Venous insufficiency (chronic) (peripheral); L60.3 Nail dystrophy; L84 Corns and callosities | CPT/HCPCS: 11056; 11721 ==

== ENCOUNTER → 2023-06-21 07:49 | Outpatient (BNVA) | payer MEDICARE, MEDICAID, SELFPAY | PROVIDERS: PCP Family Medicine; Visit Provider Thoracic Surgery (Cardiothoracic Vascular Surgery) | DX: L89.154 Pressure ulcer of sacral region, stage 4 (principal) | CPT/HCPCS: 97597; A6197 ==

== ENCOUNTER → 2023-07-12 07:52 | Outpatient (BNVA) | payer MEDICARE, MEDICAID, SELFPAY | PROVIDERS: PCP Family Medicine; Visit Provider Thoracic Surgery (Cardiothoracic Vascular Surgery) | DX: L89.154 Pressure ulcer of sacral region, stage 4 (principal) | CPT/HCPCS: 11042; A6248 ==

== ENCOUNTER → 2023-07-17 08:06 | Outpatient (BNVA) | payer MEDICARE, MEDICAID, SELFPAY | PROVIDERS: PCP Family Medicine; Visit Provider Thoracic Surgery (Cardiothoracic Vascular Surgery) | DX: L89.154 Pressure ulcer of sacral region, stage 4 (principal) | CPT/HCPCS: 11042; A6197 ==

== ENCOUNTER → 2023-07-24 09:37 | Outpatient (BNVA) | payer MEDICARE, MEDICAID, SELFPAY | PROVIDERS: PCP Family Medicine; Visit Provider Thoracic Surgery (Cardiothoracic Vascular Surgery) | DX: I96 Gangrene, not elsewhere classified (principal); L89.154 Pressure ulcer of sacral region, stage 4 | CPT/HCPCS: 11042; A6197 ==

== ENCOUNTER → 2023-07-31 08:56 | Outpatient (BNVA) | payer MEDICARE, MEDICAID, SELFPAY | PROVIDERS: PCP Family Medicine; Visit Provider Thoracic Surgery (Cardiothoracic Vascular Surgery) | DX: I96 Gangrene, not elsewhere classified (principal); L89.154 Pressure ulcer of sacral region, stage 4 | CPT/HCPCS: 11042; A6197 ==

== ENCOUNTER → 2023-08-07 13:00 | Outpatient (BNVA) | payer MEDICARE, MEDICAID, SELFPAY | PROVIDERS: PCP Family Medicine; Visit Provider Thoracic Surgery (Cardiothoracic Vascular Surgery) | DX: L89.154 Pressure ulcer of sacral region, stage 4 (principal); I96 Gangrene, not elsewhere classified | CPT/HCPCS: 11042; A6197 ==

== ENCOUNTER → 2023-08-14 13:47 | Outpatient (BNVA) | payer MEDICARE, MEDICAID, SELFPAY | PROVIDERS: PCP Family Medicine; Visit Provider Thoracic Surgery (Cardiothoracic Vascular Surgery) | DX: I96 Gangrene, not elsewhere classified (principal); L89.154 Pressure ulcer of sacral region, stage 4 | CPT/HCPCS: 99212 ==

== ENCOUNTER → 2023-08-28 08:10 | Outpatient (BNVA) | payer MEDICARE, MEDICAID, SELFPAY | PROVIDERS: PCP Family Medicine; Referring Provider Family Medicine; Visit Provider Surgery | DX: K43.5 Parastomal hernia without obstruction or gangrene (principal); Z79.899 Other long term (current) drug therapy | CPT/HCPCS: 99214 ==

== ENCOUNTER → 2023-09-04 07:51 | Outpatient (BNVA) | payer MEDICARE, MEDICAID, SELFPAY | PROVIDERS: PCP Family Medicine; Visit Provider Thoracic Surgery (Cardiothoracic Vascular Surgery) | DX: L89.154 Pressure ulcer of sacral region, stage 4 (principal) | CPT/HCPCS: 97597; A6021; A6197; A6220 ==

== ENCOUNTER → 2023-09-18 07:47 | Outpatient (BNVA) | payer MEDICARE, MEDICAID, SELFPAY | PROVIDERS: PCP Family Medicine; Visit Provider Thoracic Surgery (Cardiothoracic Vascular Surgery) | DX: I96 Gangrene, not elsewhere classified (principal); L89.154 Pressure ulcer of sacral region, stage 4 | CPT/HCPCS: 15271; Q4187 ==

== ENCOUNTER → 2023-09-24 07:26 | Outpatient (BNVA) | payer MEDICARE, MEDICAID, SELFPAY | PROVIDERS: PCP Family Medicine; Visit Provider Podiatrist Foot & Ankle Surgery | DX: I73.9 Peripheral vascular disease, unspecified (principal); I89.0 Lymphedema, not elsewhere classified; I87.2 Venous insufficiency (chronic) (peripheral); L60.3 Nail dystrophy; L84 Corns and callosities | CPT/HCPCS: 11056; 11721 ==

== ENCOUNTER → 2023-09-25 14:23 | Outpatient (BNVA) | payer MEDICARE, MEDICAID, SELFPAY | PROVIDERS: PCP Family Medicine; Visit Provider Thoracic Surgery (Cardiothoracic Vascular Surgery) | DX: I96 Gangrene, not elsewhere classified (principal); L89.154 Pressure ulcer of sacral region, stage 4 | CPT/HCPCS: 15271; A6206; A6250; Q4187 ==

== ENCOUNTER 2023-09-28 22:38 | Emergency (ER) | payer MEDICARE, MEDICAID, SELFPAY ==
[2023-09-28 22:40] VITALS: BP 160/93; PULSE 102; RESP 32; O2SAT 93; BMI 61.9
--- NOTE | 2023-09-28 22:58 | ECG_ITS ---
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 Measurements Intervals [place] Rate: 105 P: 48 IA: 133 QRS: 64 QRSD: 89 T: 59 QT: 327 QTc: 433 Interpretive Statements SINUS TACHYCARDIA LOW QRS VOLTAGE IN PRECORDIAL LEADS [QRS DEFLECTION < 1.0 mV IN CHEST LEADS] NONSPECIFIC ST & T-WAVE ABNORMALITY ABNORMAL RHYTHM ECG Compared to ECG 05/25/2019 20:30:22 Low QRS voltage now present T-wave abnormality now present Electronically Signed On 09-29-2023 23:54:45 CDT by Wes Chavez M.D. [id number]
--- NOTE | 2023-09-28 22:58 | XRR_ITS ---
PROCEDURE INFORMATION: Exam: XR Chest Exam date and time: 09/28/2023 11:09 PM Age: 53 years old Clinical indication: Chest pressure; Prior surgery; Surgery date: 6+ months; Surgery type: Gb; Patient HX: C/O chest pain TECHNIQUE: Imaging protocol: Radiologic exam of the chest. Views: 1 view. COMPARISON: CR XR chest 1V [id number] 06/23/2019 11:49 AM FINDINGS: Lungs: Low lung volumes. No consolidation. Pleural spaces: Unremarkable. No pleural effusion. No pneumothorax. Heart/Mediastinum: Unremarkable. No cardiomegaly. Bones/joints: Unremarkable. XR/XR chest 1V portable [id number] IMPRESSION: Low lung volumes similar to prior imaging. No acute plain radiographic cardiopulmonary abnormality on portable chest radiography.
[2023-09-28 23:14] LABS: Basophils # 0.1 10^3/uL (0.0-0.1); Basophils % 0.4 %; Eosinophils # 0.3 10^3/uL (0.0-0.8); Eosinophils % 1.9 %; Hematocrit 40.8 % (36-47); Lymphocytes # 1.2 10^3/uL (0.8-4.8); Lymphocytes % 9.1 %; Mean Corpuscular HGB Conc 31.9 g/dL (30-55); Mean Corpuscular Volume 94.2 fl (85-98); Mean Platelet Volume 10.5 fL (7.4-10.4); Monocytes # 0.9 10^3/uL (0.2-0.9); Neutrophils # 10.83 10^3/uL (1.8-7.7); Neutrophils % 81.1 %; Nucleated Red Blood Cells % 0 %; Platelet Count 296 10^3/cmm (157-399); Red Blood Count 4.33 10^6/uL (3.85-5.65); Red Cell Distribution Width 13.9 % (12.1-15.1); White Blood Count 13.35 10^3/uL (3.29-11.43)
[2023-09-28 23:32] LABS: Troponin(5th) Baseline 19 ng/L (0-10)
--- NOTE | 2023-09-28 23:54 | ED_ITS ---
HPI - Chest Pain 2 General: Chief Complaint: Chest Pain Stated Complaint: CP Time Seen by Provider: 09/28/23 23:06 History of Present Illness: 53-year-old female complaining of chest discomfort, mainly with deep breathing, cough, congestion. She notes that she has had these problems for 2 to 4 weeks. Associated symptoms: Reports abdominal pain, dyspnea and fever(s); Deny nausea, palpitations or vomiting Review of Systems 2 Const: Reports: fever(s); Denies: chills or body aches Eyes: Denies: change in vision ENMT: Reports: throat pain Card: Reports: chest pain; Denies: palpitations Resp: Reports: dyspnea and productive cough; Denies: non-productive cough or wheezing GI: Reports: abdominal pain; Denies: nausea, vomiting, diarrhea or hematochezia : Reports: difficulty voiding and other (Has chronic indwelling Mahajan) Skin/Breast: Denies: rash Neuro: Denies: headache(s), weakness in extremities, dizziness or confusion PFSH ED 2 PFSH: Medical History Viral syndrome Colostomy in place Exposure to Streptococcal pharyngitis Pharyngitis Paraplegia Chronic venous insufficiency of lower extremity PVD (peripheral vascular disease) History of DVT (deep vein thrombosis) 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 Chronic osteomyelitis Neurogenic bladder Chronic cystitis Surgical History S/P cholecystectomy S/P section Suprapubic catheter Family History Family/Other Diabetes Cancer CAD (coronary artery disease) Mother , at age 74 Sepsis Cancer melanoma Diabetes Father Heart disease Social History Smoking and tobacco/nicotine status: never used tobacco/nicotine Alcohol intake: never Substance/Drug Use: never Lives independently: Yes Marital status: Current occupational status: disabled Physical Exam 2 Const: GENERAL APPEARANCE: cooperative and ill appearing (Mildly) N UTRITIONAL APPEARANCE: obese morbidly obese HENMT: COMMON NORMALS: normocephalic and Normal external nose present HEAD & SCALP: normocephalic NOSE: Normal external nose present Eye: COMMON NORMALS: Equal, round and reactive pupils present and EOMs intact bilaterally PUPIL: Yes Equal, round and reactive pupils present Neck/C-Spine: GENERAL: Yes trachea midline Chest: CHEST: Yes Symmetrical chest wall rise and Yes tenderness Resp: COMMON NORMALS: normal respiratory effort, No use of accessory muscles and clear to auscultation bilaterally AUSCULTATION: clear to auscultation bilaterally Cardio: COMMON NORMALS: regular rate and regular rhythm RATE: regular rate RHYTHM: regular rhythm GI: COMMON NORMALS: Soft to palpation PALPATION: Yes Soft to palpation Course 2 Vital Signs: Vital signs: Vital Signs Pulse Rate 102 H 09/28/23 22:40 Respiratory Rate 32 H 09/28/23 22:40 Blood Pressure 160/93 09/28/23 22:40 Pulse Oximetry 93 09/28/23 22:40 Oxygen Delivery Me thod Room Air 09/28/23 22:40 MDM - Chest Pain Medical Decision Making This patient is a significant urinary tract infection on testing. Her white blood cell count is 13.4. Chest x-ray shows low lung volumes with no acute disease. The patient's troponin is stable at 2 hours. Pain is reproducible with cough and deep breathing. She will be treated as such. Return for worsening symptoms. Lab Data 09/28/23 23:09 09/28/23 23:43 Radiology Impressions Chest X-Ray 09/28/23 22:58 IMPRESSION: Low lung volumes similar to prior imaging. No acute plain radiographic cardiopulmonary abnormality on portable chest radiography. Laboratory Results WBC 13.35 10^3/uL (3.29-11.43) H 09/28/23 23:09 RBC 4.33 10^6/uL (3.85-5.65) 09/28/23 23:09 Hgb 13.00 g/dL (11.27-16.99) 09/28/23 23:09 Hct 40.8 % (36-47) 09/28/23 23:09 MCV 94.2 fl (85-98) 09/28/23 23:09 MCH 30.0 pg (27-33) 09/28/23 23:09 MCHC 31.9 g/dL (30-55) 09/28/23 23:09 RDW 13.9 % (12.1-15.1) 09/28/23 23:09 Plt Count 296 10^3/cmm (157-399) 09/28/23 23:09 MPV 10.5 fL (7.4-10.4) H 09/28/23 23:09 Neut % (Auto) 81.1 % 09/28/23 23:09 Lymph % (Auto) 9.1 % 09/28/23 23:09 [place] % (Auto) 7.0 % 09/28/23 23:09 Eos % (Auto) 1.9 % 09/28/23 23:09 Baso % (Auto) 0.4 % 09/28/23 23:09 Neut # (Auto) 10.83 10^3/uL (1.8-7.7) H 09/28/23 23:09 Lymph # (Auto) 1.2 10^3/uL (0.8-4.8) 09/28/23 23:09 [place] # (Auto) 0.9 10^3/uL (0.2-0.9) 09/28/23 23:09 Eos # (Auto) 0.3 10^3/uL (0.0-0.8) 09/28/23 23:09 Baso # (Auto) 0.1 10^3/uL (0.0-0.1) 09/28/23 23:09 Nucleated RBC % (auto) 0 % 09/28/23 23:09 Nucleated RBCs # 0.0 /100WBC 09/28/23 23:09 Sodium 139 mmol/L (136-145) 09/28/23 23:43 Potassium 4.0 mmol/L (3.5-5.1) 09/28/23 23:43 Chloride 99 mmol/L (98-107) 09/28/23 23:43 Carbon Dioxide 31 mmol/L (22-29) H 09/28/23 23:43 Anion Gap 13.0 (5-19) 09/28/23 23:43 BUN 19 mg/dL (6-20) 09/28/23 23:43 Creatinine 0.8 mg/dL (0.5-0.9) 09/28/23 23:43 GFR Calculation 74.5 mL/min (90-130) L 09/28/23 23:43 Glucose 124 mg/dL (65-115) H 09/28/23 23:43 Calculated Osmolality 292 mOsm/kg (285-295) 09/28/23 23:43 Calcium 8.7 mg/dL (8.5-10.5) 09/28/23 23:43 Troponin T Baseline 19 ng/L (0-10) H 09/28/23 23:09 Troponin T 120 Minute 20.33 ng/L (0-10) H 09/29/23 01:06 Delta Troponin T 1.33 ABS# (0-10) 09/29/23 01:06 Urine Color Yellow (Yellow) 09/28/23 23:24 Urine Appearance Hazy (CLEAR) A 09/28/23 23:24 Urine pH 5 (5-7) 09/28/23 23:24 Ur Specific [place] 1.015 (1.005-1.030) 09/28/23 23:24 Urine Protein Trace (Negative) 09/28/23 23:24 Urine Glucose (UA) Norm (Normal) 09/28/23 23:24 Urine Ketones Negative (Negative) 09/28/23 23:24 Urine Blood 3+ (Negative) H 09/28/23 23:24 Urine Nitrate Positive (Negative) H 09/28/23 23:24 Urine Bilirubin Neg (Negative) 09/28/23 23:24 Urine Urobilinogen Neg mg/dL (Negative) 09/28/23 23:24 Ur Leukocyte Esterase 2+ (Negative) H 09/28/23 23:24 Urine RBC 5-10 /hpf (0-2) H 09/28/23 23:24 Urine WBC 15-25 /hpf (0-5) H 09/28/23 23:24 Ur Squamous Epith Cells 0-4 /hpf (0-5) H 09/28/23 23:24 Amorphous Sediment 1+ /hpf 09/28/23 23:24 Urine Bacteria 3+ /hpf (NONE) H 09/28/23 23:24 Urine Mucus 1+ /hpf 09/28/23 23:24 All radiology interpretation(s) finalized by discharge Discharge Plan Discharge Patient Disposition: Home Clinical Impression: Atypical chest pain, Urinary tract infection Condition: Stable Prescriptions: New Medrol ([place]) 4 mg tablets,dose pack See Rx Instructions .ROUTE .COMPLEX Qty: 21 0RF Rx Instructions: orally per package directions albuterol sulfate 90 mcg/actuation HFA aerosol inhaler 2 inh INHALATION Q4H PRN (Reason: shortness of breath or wheezing) Qty: 6.7 1RF cefdinir 300 mg capsule 300 mg PO Q12H 10 Days Qty: 20 0RF No Action gabapentin 600 mg tablet 600 mg PO BEDTIME docusate sodium 100 mg capsule 100 mg PO BEDTIME furosemide 20 mg tablet 20 mg PO BID omeprazole 40 mg capsule,delayed release(DR/EC) 40 mg PO BEDTIME potassium chloride 10 mEq capsule, extended release 20 meq PO BEDTIME venlafaxine 150 mg capsule,extended release 24hr 150 mg PO BEDTIME ascorbic acid (vitamin C) 1,000 mg tablet 1,000 mg PO BID ergocalciferol (vitamin D2) [Vitamin D2] 1,250 mcg (50,000 unit) capsule 1,250 mcg PO DIRECTED Rx Instructions: 1 tab once per month (DME) Cam boot to right See Rx Instructions .Route .MEDSUPPLY Qty: 1 0RF Rx Instructions: As directed fluconazole 100 mg tablet 100 mg PO DAILY Qty: 3 0RF trazodone 50 mg tablet 50 mg PO ONCE methenamine hippurate 1 gram tablet 1 g PO BID Qty: 60 12RF Hold Instructions: Guidelines Rx Instructions: Take 1000 mg of vitamin C with each dose of methenamine sodium chloride 0.9 % solution 1 irrig irrigation DAILY Qty: 500 2RF gabapentin 100 mg capsule 100 mg PO QAM PRN (Reason: Pain) nystatin 100,000 unit/gram powder 1 applic topical BID Qty: 60 0RF baclofen 20 mg tablet 20 mg PO BEDTIME warfarin 1 mg tablet See Rx Instructions .ROUTE .COMPLEX Rx Instructions: TAKE 5MG PO FIVE DAYS A WEEK AND 1MG TWO DAYS A WEEK Discharge Orders: Discharge ED (Routine); Ordered 09/29/23 Ordered By: Jose Angel Richard Referrals: Jennifer Ordaz MD [Primary Care Provider] - Patient Instructions: Urinary Tract Infection in Women (ED), Chest Wall Pain (ED), Opioid Safety, Pain Management Activity Restrictions/Additional Instructions: Return for fever, worsening shortness of breath despite treatment, fever despite 2-3 doses of antibiotics, mental status changes, other concerning symptoms. Medications as directed. Coding Level of Care Code ED Clinical Mental Health Counselor for Hetal Huitron
[2023-09-28 23:56] LABS: Protein Urine Trace (Negative); Specific Gravity, Urine 1.015 (1.005-1.030); Urine Appearance Hazy (CLEAR); Urine Color Yellow (Yellow); pH Urine 5 (5-7)
[2023-09-28 23:57] LABS: Add Urine Microscopic? YES; Amorphous Sediment Urine 1+ /hpf; Bacteria Urine 3+ /hpf; Bilirubin Urine Neg (Negative); Blood Urine 3+ (Negative); Glucose Urine UA Norm (Normal); Ketones Urine Negative (Negative); Leukocyte Esterase Urine 2+ (Negative); Mucus Urine 1+ /hpf; Nitrate Urine Positive (Negative); Squamous Epithelial Cell Urine 0-4 /hpf (0-5); Urobilinogen Urine Neg (Negative); WBC Urine 15-25 /hpf (0-5)
[2023-09-28 23:58] LABS: Add Urine Culture? Yes
[2023-09-29 00:16] LABS: Blood Urea Nitrogen 19 mg/dL (6-20); Calcium 8.7 mg/dL (8.5-10.5); Carbon Dioxide 31 mmol/L (22-29); Chloride 99 mmol/L (98-107); Creatinine Clr Calc Pharmacy 119.0906; Glomerular Filtration Rate 74.5 mL/min (90-130); Glucose 124 mg/dL (65-115); Osmolality Calculated 292 mOsm/kg (285-295); Sodium 139 mmol/L (136-145)
[2023-09-29] MEDS: acetaminophen 500 mg Tablet 1000 MG PO (00:30)
--- NOTE | 2023-09-29 00:58 | ECG_ITS ---
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 Measurements Intervals [place] Rate: 94 P: 48 [place]: 146 QRS: 48 QRSD: 89 T: 55 QT: 348 QTc: 436 Interpretive Statements SINUS RHYTHM LOW QRS VOLTAGE IN PRECORDIAL LEADS [QRS DEFLECTION < 1.0 mV IN CHEST LEADS] NONSPECIFIC ST & T-WAVE ABNORMALITY Compared to ECG 09/28/2023 22:49:30 Sinus tachycardia no longer present T-wave abnormality still present Electronically Signed On 09-29-2023 23:58:24 CDT by Wes Chavez M.D. [id number]
[2023-09-29] MEDS: cefTRIAXone 1,000 MG in sodium chloride 0.9% (plus) 50 ML 100 MG IV (01:18)
[2023-09-29 01:31] LABS: Troponin 5 2HR 20.33 ng/L (0-10); Troponin 5 2HR Delta 1.33 ABS# (0-10)
== END 2023-09-29 02:22 | disposition home or self-care (01) ==
PROVIDERS: Emergency Provider Emergency Medicine; PCP Family Medicine
DX: R07.89 Other chest pain (principal); N39.0 Urinary tract infection, site not specified; Z79.01 Long term (current) use of anticoagulants; G82.20 Paraplegia, unspecified
CPT/HCPCS: 36415; 71045; 80048; 81001; 84484; 85025; 87086; 93005; 96365; 99285; J0696

== ENCOUNTER → 2023-10-02 07:43 | Outpatient (BNVA) | payer MEDICARE, MEDICAID, SELFPAY | PROVIDERS: PCP Family Medicine; Visit Provider Thoracic Surgery (Cardiothoracic Vascular Surgery) | DX: I96 Gangrene, not elsewhere classified (principal); L89.154 Pressure ulcer of sacral region, stage 4 | CPT/HCPCS: 97597; A6021; A6220 ==

== ENCOUNTER → 2023-10-09 07:52 | Outpatient (BNVA) | payer MEDICARE, MEDICAID, SELFPAY | PROVIDERS: PCP Family Medicine; Visit Provider Thoracic Surgery (Cardiothoracic Vascular Surgery) | DX: I96 Gangrene, not elsewhere classified (principal); L89.154 Pressure ulcer of sacral region, stage 4 | CPT/HCPCS: 15271; A6206; A6250 ==

== ENCOUNTER → 2023-10-16 07:49 | Outpatient (BNVA) | payer MEDICARE, MEDICAID, SELFPAY | PROVIDERS: PCP Family Medicine; Visit Provider Thoracic Surgery (Cardiothoracic Vascular Surgery) | DX: I96 Gangrene, not elsewhere classified (principal); L89.154 Pressure ulcer of sacral region, stage 4 | CPT/HCPCS: 97597; A6021; A6220 ==

== ENCOUNTER → 2023-10-23 07:49 | Outpatient (BNVA) | payer MEDICARE, MEDICAID, SELFPAY | PROVIDERS: PCP Family Medicine; Visit Provider Thoracic Surgery (Cardiothoracic Vascular Surgery) | DX: I96 Gangrene, not elsewhere classified (principal); L89.154 Pressure ulcer of sacral region, stage 4 | CPT/HCPCS: 15271; A6021; A6206; A6219; Q4187 ==

== ENCOUNTER 2023-10-28 10:10 | Emergency (ER) | payer MEDICARE, MEDICAID, SELFPAY ==
[2023-10-28 10:14] VITALS: BP 159/89; PULSE 81; RESP 16; TEMP 36.4; O2SAT 91; BMI 53.1
--- NOTE | 2023-10-28 10:47 | W.ED.WOUNDLC ---
HPI - Wound/Laceration General: Chief Complaint: Wound/Laceration Stated Complaint: right foot injury Time Seen by Provider: 10/28/23 10:13 Source: patient Mode of arrival: wheelchair Limitations: no limitations History of Present Illness: Patient is a 53-year-old female presents to ED today for evaluation of lacerations to the bottom of her right foot that she sustained after she accidentally caught her toes on a side table. Patient is chronically wheelchair-bound. She is not a diabetic. Bleeding controlled. Onset (ago): hour(s) Extremity Location: Right: foot Place: home Patient tetanus UTD: Yes Context: accidental Associated symptoms: Reports no associated symptoms Treatments prior to arrival: bandage Review of Systems Musc: Reports: extremity pain (R foot) Skin/Breast: Reports: other (lacerations bottom of R foot) [facility] ED PFSH: Medical History Viral syndrome Colostomy in place Exposure to Streptococcal pharyngitis Pharyngitis Paraplegia Chronic venous insufficiency of lower extremity PVD (peripheral vascular disease) History of DVT (deep vein thrombosis) 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 Chronic osteomyelitis Neurogenic bladder Chronic cystitis Surgical History S/P cholecystectomy S/P section Suprapubic catheter Family History Family/Other Diabetes Cancer CAD (coronary artery disease) Mother , at age 74 Sepsis Cancer melanoma Diabetes Father Heart disease Social History Smoking and tobacco/nicotine status: never used tobacco/nicotine Alcohol intake: never Substance/Drug Use: never Lives independently: Yes Marital status: Current occupational status: disabled Physical Exam Const: COMMON NORMALS: patient oriented x3, no limitations and alert GENERAL APPEARANCE: cooperative Extremity: COMMON NORMALS: capillary refill normal GENERAL: Yes normal exam except as noted RIGHT LOWER EXTREMITY: Yes foot & digits Right foot and digits: Yes neurovascular exam (normal), Yes tendon exam (normal) and Yes other (lacerations at plantar base of 3-4 digits) Neuro: COMMON NORMALS: patient oriented x3, moves all extremities, no focal motor deficits and no sensory deficits noted SENSORIUM/ORIENTATION: Yes alert Skin: TRAUMA: laceration Procedures Laceration Laceration 1: Site: lower extremity (R foot) Side (If applicable): right (4th digit) Size (cm): 1.0 Description: linear Depth: simple, single layer Local Anesthetic: lidocaine 2% (digital block) Amount of anesthesia used (mL): 2.0 Pre-repair: wound explored and irrigated extensively Skin layer closed with: nylon Size (cm): 5-0 Number of sutures: 3 Technique: simple, interrupted Laceration 2: Site: lower extremity (R plantar foot) Side (If applicable): right (3rd digit) Size (cm): 1.0 Description: linear Depth: simple, single layer Local Anesthetic: lidocaine 2% (digital block) Amount of anesthesia used (mL): 2.0 Pre-repair: wound explored and irrigated extensively Skin layer closed with: nylon Size (cm): 5-0 Number of sutures: 3 Technique: simple, interrupted Course Vital Signs: Vital signs: Vital Signs Temperature 97.5 F L 10/28/23 10:14 Pulse Rate 74 10/28/23 11:13 Respiratory Rate 16 10/28/23 10:14 Blood Pressure 136/86 10/28/23 11:13 Pulse Oximetry 97 10/28/23 11:13 Oxygen Delivery Me thod Room Air 10/28/23 11:13 MDM - Wound/Laceration Medical Decision Making Wounds were copiously repaired and irrigated as documented. She attends weekly wound care appointments. She can continue these for suture removal. Return to ED precautions given and signs and symptoms regarding infection that should prompt medical reevaluation were discussed. She will be placed on Keflex. No radiology studies performed this visit Discharge Plan Discharge Patient Disposition: Home Clinical Impression: Laceration of toe, right Qualifiers: Encounter type: initial encounter Toe: lesser toe Damage to nail status: without damage Foreign body presence: without foreign body Qualified Code(s): S91.114A - Laceration without foreign body of right lesser toe(s) without damage to nail, initial encounter Condition: Stable Prescriptions: New cephalexin 500 mg capsule 500 mg PO Q6H 7 Days Qty: 28 0RF No Action gabapentin 600 mg tablet 600 mg PO BEDTIME docusate sodium 100 mg capsule 100 mg PO BEDTIME furosemide 20 mg tablet 20 mg PO BID omeprazole 40 mg capsule,delayed release(DR/EC) 40 mg PO BEDTIME potassium chloride 10 mEq capsule, extended release 20 meq PO BEDTIME venlafaxine 150 mg capsule,extended release 24hr 150 mg PO BEDTIME ascorbic acid (vitamin C) 1,000 mg tablet 1,000 mg PO BID ergocalciferol (vitamin D2) [Vitamin D2] 1,250 mcg (50,000 unit) capsule 1,250 mcg PO DIRECTED Rx Instructions: 1 tab once per month (DME) Cam boot to right See Rx Instructions .Route .MEDSUPPLY Qty: 1 0RF Rx Instructions: As directed fluconazole 100 mg tablet 100 mg PO DAILY Qty: 3 0RF trazodone 50 mg tablet 50 mg PO ONCE methenamine hippurate 1 gram tablet 1 g PO BID Qty: 60 12RF Hold Instructions: Guidelines Rx Instructions: Take 1000 mg of vitamin C with each dose of methenamine sodium chloride 0.9 % solution 1 irrig irrigation DAILY Qty: 500 2RF gabapentin 100 mg capsule 100 mg PO QAM PRN (Reason: Pain) nystatin 100,000 unit/gram powder 1 applic topical BID Qty: 60 0RF baclofen 20 mg tablet 20 mg PO BEDTIME warfarin 1 mg tablet See Rx Instructions .ROUTE .COMPLEX Rx Instructions: TAKE 5MG PO FIVE DAYS A WEEK AND 1MG TWO DAYS A WEEK Medrol (Edy) 4 mg tablets,dose pack See Rx Instructions .ROUTE .COMPLEX Qty: 21 0RF Rx Instructions: orally per package directions albuterol sulfate 90 mcg/actuation HFA aerosol inhaler 2 inh INHALATION Q4H PRN (Reason: shortness of breath or wheezing) Qty: 6.7 1RF Discharge Orders: Discharge ED (Routine); Ordered 10/28/23 Ordered By: Corinne Venegas Referrals: Jennifer Ordaz MD [Primary Care Provider] - Patient Instructions: Laceration (DC) Activity Restrictions/Additional Instructions: Keep wound/laceration clean with warm soap and water twice daily. Monitor for signs of infection such as redness, swelling, increased pain, or drainage. Please seek medical re-evaluation if these occur. If you received sutures today these will need to be removed (unless you were told by the provider that they are absorbable). The provider should have discussed with you the length of time until removal-7 DAYS. You could continue to follow up with your wound care team who could remove these sutures. 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
[2023-10-28 11:13] VITALS: BP 136/86; PULSE 74; O2SAT 97
[2023-10-28 12:17] VITALS: BP 160/101; PULSE 73; RESP 20; O2SAT 99
== END 2023-10-28 12:19 | disposition home or self-care (01) ==
PROVIDERS: Emergency Provider Physician Assistant; PCP Family Medicine
DX: S91.114A Laceration without foreign body of right lesser toe(s) without damage to nail, initial encounter (principal); Z79.01 Long term (current) use of anticoagulants; G82.20 Paraplegia, unspecified; W22.03XA Walked into furniture, initial encounter
CPT/HCPCS: 12001; 99283

== ENCOUNTER → 2023-10-30 07:51 | Outpatient (BNVA) | payer MEDICARE, MEDICAID, SELFPAY | PROVIDERS: PCP Family Medicine; Visit Provider Thoracic Surgery (Cardiothoracic Vascular Surgery) | DX: I96 Gangrene, not elsewhere classified (principal); L89.154 Pressure ulcer of sacral region, stage 4 | CPT/HCPCS: 15271; Q4187 ==

== ENCOUNTER → 2023-11-06 07:49 | Outpatient (BNVA) | payer MEDICARE, MEDICAID, SELFPAY | PROVIDERS: PCP Family Medicine; Visit Provider Thoracic Surgery (Cardiothoracic Vascular Surgery) | DX: I96 Gangrene, not elsewhere classified (principal); L89.154 Pressure ulcer of sacral region, stage 4; S81.811D Laceration without foreign body, right lower leg, subsequent encounter; X58.XXXD Exposure to other specified factors, subsequent encounter | CPT/HCPCS: 15271; 97597; A6212; A6220; Q4187 ==

== ENCOUNTER → 2023-11-13 07:43 | Outpatient (BNVA) | payer MEDICARE, MEDICAID, SELFPAY | PROVIDERS: PCP Family Medicine; Visit Provider Thoracic Surgery (Cardiothoracic Vascular Surgery) | DX: I96 Gangrene, not elsewhere classified (principal); L89.154 Pressure ulcer of sacral region, stage 4; S81.811A Laceration without foreign body, right lower leg, initial encounter; X58.XXXA Exposure to other specified factors, initial encounter | CPT/HCPCS: 15271; A6021; A6250; Q4187 ==

== ENCOUNTER → 2023-11-20 07:45 | Outpatient (BNVA) | payer MEDICARE, MEDICAID, SELFPAY | PROVIDERS: PCP Family Medicine; Visit Provider Thoracic Surgery (Cardiothoracic Vascular Surgery) | DX: L89.154 Pressure ulcer of sacral region, stage 4 (principal); L97.811 Non-pressure chronic ulcer of other part of right lower leg limited to breakdown of skin | CPT/HCPCS: 15271; A6021; A6206; A6219; A6250; Q4187 ==

== ENCOUNTER → 2023-11-27 08:02 | Outpatient (BNVA) | payer MEDICARE, MEDICAID, SELFPAY | PROVIDERS: PCP Family Medicine; Visit Provider Thoracic Surgery (Cardiothoracic Vascular Surgery) | DX: I96 Gangrene, not elsewhere classified (principal); L89.154 Pressure ulcer of sacral region, stage 4; Z09 Encounter for follow-up examination after completed treatment for conditions other than malignant neoplasm | CPT/HCPCS: 15271; Q4187 ==

== ENCOUNTER → 2023-12-04 07:49 | Outpatient (BNVA) | payer MEDICARE, MEDICAID, SELFPAY | PROVIDERS: PCP Family Medicine; Visit Provider Thoracic Surgery (Cardiothoracic Vascular Surgery) | DX: I96 Gangrene, not elsewhere classified (principal); L89.154 Pressure ulcer of sacral region, stage 4 | CPT/HCPCS: 15271; A6021; A6206; A6250; Q4187 ==

== ENCOUNTER → 2023-12-11 07:43 | Outpatient (BNVA) | payer MEDICARE, MEDICAID, SELFPAY | PROVIDERS: PCP Family Medicine; Visit Provider Thoracic Surgery (Cardiothoracic Vascular Surgery) | DX: I96 Gangrene, not elsewhere classified (principal); L89.154 Pressure ulcer of sacral region, stage 4 | CPT/HCPCS: 97597; A6021; A6220 ==

== ENCOUNTER → 2023-12-18 07:57 | Outpatient (BNVA) | payer MEDICARE, MEDICAID, SELFPAY | PROVIDERS: PCP Family Medicine; Visit Provider Thoracic Surgery (Cardiothoracic Vascular Surgery) | DX: I96 Gangrene, not elsewhere classified (principal); L89.154 Pressure ulcer of sacral region, stage 4 | CPT/HCPCS: 97597; A6197 ==

== ENCOUNTER → 2023-12-24 08:09 | Outpatient (BNVA) | payer MEDICARE, MEDICAID, SELFPAY | PROVIDERS: PCP Family Medicine; Visit Provider Podiatrist Foot & Ankle Surgery | DX: I73.9 Peripheral vascular disease, unspecified; L60.3 Nail dystrophy; L84 Corns and callosities; I89.0 Lymphedema, not elsewhere classified; I87.2 Venous insufficiency (chronic) (peripheral) | CPT/HCPCS: 11056; 11721; 73630; 99213 ==

== ENCOUNTER → 2023-12-25 08:11 | Outpatient (BNVA) | payer MEDICARE, MEDICAID, SELFPAY | PROVIDERS: PCP Family Medicine; Visit Provider Thoracic Surgery (Cardiothoracic Vascular Surgery) | DX: I96 Gangrene, not elsewhere classified (principal); L89.154 Pressure ulcer of sacral region, stage 4 | CPT/HCPCS: 97597 ==

== ENCOUNTER → 2024-01-01 07:46 | Outpatient (BNVA) | payer MEDICARE, MEDICAID, SELFPAY | PROVIDERS: PCP Family Medicine; Visit Provider Thoracic Surgery (Cardiothoracic Vascular Surgery) | DX: I96 Gangrene, not elsewhere classified (principal); L89.154 Pressure ulcer of sacral region, stage 4 | CPT/HCPCS: 97597 ==

== ENCOUNTER → 2024-01-08 08:00 | Outpatient (BNVA) | payer MEDICARE, MEDICAID, SELFPAY | PROVIDERS: PCP Family Medicine; Visit Provider Thoracic Surgery (Cardiothoracic Vascular Surgery) | DX: L89.154 Pressure ulcer of sacral region, stage 4 (principal); I96 Gangrene, not elsewhere classified | CPT/HCPCS: 87070; 87176; 87205; 97597 ==

== ENCOUNTER → 2024-01-15 07:38 | Outpatient (BNVA) | payer MEDICARE, MEDICAID, SELFPAY | PROVIDERS: PCP Family Medicine; Visit Provider Thoracic Surgery (Cardiothoracic Vascular Surgery) | DX: I96 Gangrene, not elsewhere classified (principal); L89.154 Pressure ulcer of sacral region, stage 4 | CPT/HCPCS: 97597 ==

== ENCOUNTER → 2024-01-22 08:00 | Outpatient (BNVA) | payer MEDICARE, MEDICAID, SELFPAY | PROVIDERS: PCP Family Medicine; Visit Provider Thoracic Surgery (Cardiothoracic Vascular Surgery) | DX: I96 Gangrene, not elsewhere classified (principal); L89.154 Pressure ulcer of sacral region, stage 4 | CPT/HCPCS: 97597 ==

== ENCOUNTER → 2024-01-29 07:38 | Outpatient (BNVA) | payer MEDICARE, MEDICAID, SELFPAY | PROVIDERS: PCP Family Medicine; Visit Provider Thoracic Surgery (Cardiothoracic Vascular Surgery) | DX: I96 Gangrene, not elsewhere classified (principal); L89.154 Pressure ulcer of sacral region, stage 4 | CPT/HCPCS: 97597 ==

== ENCOUNTER → 2024-02-05 07:44 | Outpatient (BNVA) | payer MEDICARE, MEDICAID, SELFPAY | PROVIDERS: PCP Family Medicine; Visit Provider Thoracic Surgery (Cardiothoracic Vascular Surgery) | DX: I96 Gangrene, not elsewhere classified (principal); L89.154 Pressure ulcer of sacral region, stage 4 | CPT/HCPCS: 97597 ==

== ENCOUNTER → 2024-02-12 07:55 | Outpatient (BNVA) | payer MEDICARE, MEDICAID, SELFPAY | PROVIDERS: PCP Family Medicine; Visit Provider Thoracic Surgery (Cardiothoracic Vascular Surgery) | DX: I96 Gangrene, not elsewhere classified (principal); L89.154 Pressure ulcer of sacral region, stage 4 | CPT/HCPCS: 97597 ==

== ENCOUNTER 2024-02-14 16:27 | Emergency (ER) | payer MEDICARE, MEDICAID, SELFPAY ==
[2024-02-14 17:47] VITALS: BP 162/55; PULSE 91; RESP 18; TEMP 36.7; O2SAT 95
--- NOTE | 2024-02-14 18:14 | XRR_ITS ---
PROCEDURE INFORMATION: Exam: XR Left Foot Exam date and time: 02/14/2024 7:25 PM Age: 53 years old Clinical indication: Left; Patient HX: Lt foot pain/laceration TECHNIQUE: Imaging protocol: Radiologic exam of the left foot. Views: 3 or more views. COMPARISON: CR XR foot LT min 3V* [id number] 10/09/2022 10:06 AM FINDINGS: Bones/joints: No acute fractures or subluxations. The bones are osteopenic. Chronic deformity of the distal phalanx of the 1st digit. Degenerative changes of the foot with joint space narrowing. Soft tissues: Bandage material overlying the digits limits evaluation of soft tissues. No radiopaque foreign bodies. Diffuse soft tissue swelling of the foot. XR/XR foot LT min 3V* [id number] IMPRESSION: 1. No acute osseous findings. 2. Bandage material overlying the digits limits evaluation of soft tissues. 3. No radiopaque foreign bodies. Diffuse soft tissue swelling of the foot.
--- NOTE | 2024-02-14 20:06 | W.ED.LOWEXIN ---
HPI - Extremity Injury (Lower) General: Chief Complaint: Extremity Injury, Lower Stated Complaint: left foot injury Time Seen by Provider: 02/14/24 20:05 Source: patient Mode of arrival: wheelchair Limitations: no limitations History of Present Illness: Patient is a 53-year-old female presents to ED today with a complaint of a laceration to the bottom of her left toes as well as a foot injury. She states she accidentally ran her foot into an entertainment center. Patient was seen here just a few months ago for similar injury to her right foot. She is not a diabetic. MD complaint: foot injury Onset (ago): hour(s) Injury: Left: foot and toes Place: home Severity: moderate Relieving factors: nothing Exacerbating factors: nothing Context: direct blow Associated symptoms: Reports no associated symptoms Other symptoms: none Treatments prior to arrival: bandage Related Data Home Medications Medication Instructions Recorded Confirmed docusate sodium 100 mg capsule 100 mg PO BEDTIME 04/12/20 12/24/23 furosemide 20 mg tablet 20 mg PO BID 04/12/20 12/24/23 gabapentin 600 mg tablet 600 mg PO BEDTIME 04/12/20 12/24/23 omeprazole 40 mg capsule,delayed 40 mg PO BEDTIME 04/12/20 12/24/23 release potassium chloride 10 mEq 20 meq PO BEDTIME 04/12/20 12/24/23 capsule,extended release venlafaxine 150 mg 150 mg PO BEDTIME 04/12/20 12/24/23 capsule,extended release 24 hr ascorbic acid (vitamin C) 1,000 mg 1,000 mg PO BID 10/27/20 12/24/23 tablet gabapentin 100 mg capsule 100 mg PO QAM PRN Pain 11/19/22 12/24/23 baclofen 20 mg tablet 20 mg PO BEDTIME 02/26/23 12/24/23 warfarin 1 mg tablet See Rx Instructions .Route .COMPLEX 02/26/23 12/24/23 ergocalciferol (vitamin D2) 1,250 1,250 mcg PO DIRECTED 04/25/23 12/24/23 mcg (50,000 unit) capsule (Vitamin D2) trazodone 50 mg tablet 50 mg PO ONCE 09/24/23 12/24/23 Previous Rx's Medication Instructions Recorded methenamine hippurate 1 gram tablet 1 g PO BID #60 tabs 03/16/22 Cam boot to right #1 ea 09/10/22 sodium chloride 0.9 % irrigation 1 irrig irrigation DAILY open 11/02/22 solution wound cleansing #500 mL nystatin 100,000 unit/gram topical 1 applic topical BID #60 grams 01/21/23 powder fluconazole 100 mg tablet 100 mg PO DAILY #3 tabs 05/24/23 albuterol sulfate 90 mcg/actuation 2 inh inhalation Q4H PRN shortness 09/29/23 aerosol inhaler of breath or wheezing #6.7 grams methylprednisolone 4 mg tablets in See Rx Instructions PO .COMPLEX 09/29/23 a dose pack (Medrol (Edy)) #21 ea cephalexin 500 mg capsule 500 mg PO Q6H 7 days #28 caps 02/14/24 Allergies Allergy/AdvReac Type Severity Reaction Status Date / Time azithromycin Allergy Unknown Verified 12/24/23 08:02 Penicillins Allergy Unknown Verified 12/24/23 08:02 tramadol [From Ultram] Allergy Unknown Verified 12/24/23 08:02 vancomycin Allergy Unknown Verified 12/24/23 08:02 Review of Systems Musc: Reports: extremity pain (L foot); Denies: extremity swelling, joint pain or joint swelling Skin/Breast: Reports: other (toe lacerations) Neuro: Reports: other (chronic neuropathy) PFSH ED PFSH: Medical History Viral syndrome Colostomy in place Exposure to Streptococcal pharyngitis Pharyngitis Paraplegia Chronic venous insufficiency of lower extremity PVD (peripheral vascular disease) History of DVT (deep vein thrombosis) 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 Chronic osteomyelitis Neurogenic bladder Chronic cystitis Surgical History S/P cholecystectomy S/P section Suprapubic catheter Family History Family/Other Diabetes Cancer CAD (coronary artery disease) Mother , at age 74 Sepsis Cancer melanoma Diabetes Father Heart disease Social History Smoking and tobacco/nicotine status: never used tobacco/nicotine Alcohol intake: never Substance/Drug Use: never Lives independently: Yes Marital status: Current occupational status: disabled Physical Exam Const: COMMON NORMALS: no acute distress, no limitations and alert Extremity: GENERAL: Yes normal exam except as noted LEFT LOWER EXTREMITY: Yes foot & digits (lacerations plantar base L 3-4 toes) Left foot and digits: Yes neurovascular exam (normal) Neuro: SENSORIUM/ORIENTATION: Yes alert Procedures Laceration Laceration 1: Site: lower extremity (foot/3rd toe) Side (If applicable): left Size (cm): 1.5 Description: linear Depth: simple, single layer Local Anesthetic: lidocaine 1% Amount of anesthesia used (mL): 2.0 Pre-repair: wound explored and irrigated extensively Skin layer closed with: nylon Size (cm): 5-0 Number of sutures: 3 Technique: simple, interrupted Laceration 2: Site: lower extremity (L foot/4th toe) Side (If applicable): left Size (cm): 1.5 Description: linear Depth: simple, single layer Local Anesthetic: lidocaine 1% Amount of anesthesia used (mL): 2.0 Pre-repair: wound explored and irrigated extensively Skin layer closed with: nylon Size (cm): 5-0 Number of sutures: 3 Technique: simple, interrupted Course Vital Signs: Vital signs: Vital Signs Temperature 98.1 F 02/14/24 17:47 Pulse Rate 91 02/14/24 17:47 Respiratory Rate 18 02/14/24 17:47 Blood Pressure 162/55 02/14/24 17:47 Pulse Oximetry 95 02/14/24 17:47 Oxygen Delivery Me thod Room Air 02/14/24 17:47 MDM - Extremity Injury (Lower) Medical Decision Making Wounds were copiously irrigated and repaired as documented. XR showing no acute fractures. She has wound care appointment already scheduled for Saturday she can follow up with. Will place on Keflex. Medical Records I reviewed the patient's medical records. Lab Data Radiology Impressions Foot X-Ray 02/14/24 18:14 IMPRESSION: 1. No acute osseous findings. 2. Bandage material overlying the digits limits evaluation of soft tissues. 3. No radiopaque foreign bodies. Diffuse soft tissue swelling of the foot. All radiology interpretation(s) finalized by discharge Discharge Plan Discharge Patient Disposition: Home Clinical Impression: Laceration of third toe of left foot Qualifiers: Encounter type: initial encounter Qualified Code(s): S91.115A - Laceration without foreign body of left lesser toe(s) without damage to nail, initial encounter Laceration of fourth toe of left foot Qualifiers: Encounter type: initial encounter Qualified Code(s): S91.115A - Laceration without foreign body of left lesser toe(s) without damage to nail, initial encounter Condition: Stable Prescriptions: New cephalexin 500 mg capsule 500 mg PO Q6H 7 Days Qty: 28 0RF No Action gabapentin 600 mg tablet 600 mg PO BEDTIME docusate sodium 100 mg capsule 100 mg PO BEDTIME furosemide 20 mg tablet 20 mg PO BID omeprazole 40 mg capsule,delayed release(DR/EC) 40 mg PO BEDTIME potassium chloride 10 mEq capsule, extended release 20 meq PO BEDTIME venlafaxine 150 mg capsule,extended release 24hr 150 mg PO BEDTIME ascorbic acid (vitamin C) 1,000 mg tablet 1,000 mg PO BID ergocalciferol (vitamin D2) [Vitamin D2] 1,250 mcg (50,000 unit) capsule 1,250 mcg PO DIRECTED Rx Instructions: 1 tab once per month (DME) Cam boot to right See Rx Instructions .Route .MEDSUPPLY Qty: 1 0RF Rx Instructions: As directed fluconazole 100 mg tablet 100 mg PO DAILY Qty: 3 0RF trazodone 50 mg tablet 50 mg PO ONCE methenamine hippurate 1 gram tablet 1 g PO BID Qty: 60 12RF Hold Instructions: Guidelines Rx Instructions: Take 1000 mg of vitamin C with each dose of methenamine sodium chloride 0.9 % solution 1 irrig irrigation DAILY Qty: 500 2RF gabapentin 100 mg capsule 100 mg PO QAM PRN (Reason: Pain) nystatin 100,000 unit/gram powder 1 applic topical BID Qty: 60 0RF baclofen 20 mg tablet 20 mg PO BEDTIME warfarin 1 mg tablet See Rx Instructions .ROUTE .COMPLEX Rx Instructions: TAKE 5MG PO FIVE DAYS A WEEK AND 1MG TWO DAYS A WEEK Medrol (Edy) 4 mg tablets,dose pack See Rx Instructions .ROUTE .COMPLEX Qty: 21 0RF Rx Instructions: orally per package directions albuterol sulfate 90 mcg/actuation HFA aerosol inhaler 2 inh INHALATION Q4H PRN (Reason: shortness of breath or wheezing) Qty: 6.7 1RF Discharge Orders: Discharge ED (Routine); Ordered 02/14/24 Ordered By: Corinne Venegas Referrals: Jennifer Ordaz MD [Primary Care Provider] - Activity Restrictions/Additional Instructions: Keep wounds clean with warm soap and water and monitor for signs of infection such as swelling, drainage, redness, odor, streaking on your foot, fevers, or any other concerns you may have. Please follow-up with wound care or your podiatry team for suture removal in approximately 7 days. 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
[2024-02-14] MEDS: cephALEXin 500 mg Capsule PO (21:06)
== END 2024-02-14 21:10 | disposition home or self-care (01) ==
PROVIDERS: Emergency Provider Physician Assistant; PCP Family Medicine
DX: S91.115A Laceration without foreign body of left lesser toe(s) without damage to nail, initial encounter (principal); Z79.01 Long term (current) use of anticoagulants; G82.20 Paraplegia, unspecified; W22.8XXA Striking against or struck by other objects, initial encounter
CPT/HCPCS: 12002; 73630; 99283

== ENCOUNTER → 2024-02-19 07:45 | Outpatient (BNVA) | payer MEDICARE, MEDICAID, SELFPAY | PROVIDERS: PCP Family Medicine; Visit Provider Thoracic Surgery (Cardiothoracic Vascular Surgery) | DX: I96 Gangrene, not elsewhere classified (principal); L89.154 Pressure ulcer of sacral region, stage 4 | CPT/HCPCS: 97597 ==

== ENCOUNTER 2024-02-25 08:03 | Outpatient (CLI) | payer MEDICARE, MEDICAID, SELFPAY ==
--- NOTE | 2024-02-25 08:10 | MM_ITS ---
WS: [id number] BILATERAL SCREENING DIGITAL TOMOSYNTHESIS MAMMOGRAM WITH CAD HISTORY: SCREENING COMPARISON: 10/30/2021, 05/08/2011 Bilateral CC and MLO views with tomosynthesis and synthetic mammography submitted. Computer aided det ection analyzed. Technically very limited and difficult evaluation of the breasts. Not all portions of the breast are included. Patient was unable to stand without assistance. Breast composition: There are scattered areas of fibroglandular density. No suspicious masses, microc alcifications or architectural distortion. There are scattered calcifications and asymmetries. Note: This is a technically very difficult and limited evaluation of the breasts due to patient's cli nical condition. Not all portions of the breast have been included on this examination adequately. MM/[place] [id number] IMPRESSION: BI-RADS: 2-Benign FOLLOW UP: 1 Year Follow-up
== END 2024-02-25 08:04 | disposition home or self-care (01) ==
LOC: RAD 08:04
PROVIDERS: PCP Family Medicine; Visit Provider Family Medicine
DX: Z12.31 Encounter for screening mammogram for malignant neoplasm of breast (principal)
CPT/HCPCS: 77063; 77067

== ENCOUNTER → 2024-02-26 07:48 | Outpatient (BNVA) | payer MEDICARE, MEDICAID, SELFPAY | PROVIDERS: PCP Family Medicine; Visit Provider Thoracic Surgery (Cardiothoracic Vascular Surgery) | DX: I96 Gangrene, not elsewhere classified (principal); L89.154 Pressure ulcer of sacral region, stage 4; S91.115D Laceration without foreign body of left lesser toe(s) without damage to nail, subsequent encounter; W22.8XXD Striking against or struck by other objects, subsequent encounter | CPT/HCPCS: 97597; A6220 ==

== ENCOUNTER → 2024-03-03 10:31 | Outpatient (BNVA) | payer MEDICARE, MEDICAID, SELFPAY | PROVIDERS: PCP Family Medicine; Visit Provider Student in an Organized Health Care Education/Training Program | DX: M46.28 Osteomyelitis of vertebra, sacral and sacrococcygeal region (principal); M86.60 Other chronic osteomyelitis, unspecified site | CPT/HCPCS: 36415; 80053; 85025; 85651; 86140 ==

== ENCOUNTER → 2024-03-04 07:53 | Outpatient (BNVA) | payer MEDICARE, MEDICAID, SELFPAY | PROVIDERS: PCP Family Medicine; Visit Provider Thoracic Surgery (Cardiothoracic Vascular Surgery) | DX: I96 Gangrene, not elsewhere classified (principal); L89.154 Pressure ulcer of sacral region, stage 4; S91.115D Laceration without foreign body of left lesser toe(s) without damage to nail, subsequent encounter; W22.8XXD Striking against or struck by other objects, subsequent encounter | CPT/HCPCS: 97597; A6219 ==

== ENCOUNTER → 2024-03-11 07:56 | Outpatient (BNVA) | payer MEDICARE, MEDICAID, SELFPAY | PROVIDERS: PCP Family Medicine; Visit Provider Thoracic Surgery (Cardiothoracic Vascular Surgery) | DX: I96 Gangrene, not elsewhere classified (principal); L89.154 Pressure ulcer of sacral region, stage 4; L97.521 Non-pressure chronic ulcer of other part of left foot limited to breakdown of skin | CPT/HCPCS: 97597 ==

== ENCOUNTER 2024-03-18 08:01 | Outpatient (CLI) | payer MEDICARE, MEDICAID, SELFPAY ==
--- NOTE | 2024-03-18 08:45 | CT_ITS ---
WS: [id number] CT ABDOMEN AND PELVIS WITH CONTRAST HISTORY: chronic sacral abscess TECHNIQUE: Imaging performed of the abdomen and pelvis with IV contrast. Single phase imaging of the abdomen. Coronal and sagittal reformats are submitted. All CT scans at [facility] use at [facility] one of these dose optimization techniques: automated exposure control; mA and/or kV adjustment per patient size (includes targeted exams where dose is matched to clinical indication); or iterative re construction. IV CONTRAST: Omnipaque 350; 100 mL IV. Oral contrast: Yes. DLP: 1677.86 mGy.cm COMPARISON: 10/30/2022 Lower thorax: Lung bases are clear. Heart is normal size. No hiatal hernia. Liver/biliary system: Normal size with no intrahepatic dilatation. Gallbladder: Prior cholecystectomy. Pancreas: Fatty atrophy. Spleen: Normal size spleen. No mass or infarct. Adrenal glands: Normal. Right kidney: Normal. Left kidney: Normal. Aorta: Normal. IVC filter. Lymphadenopathy: None. Free fluid: None. GI tract: No GI tract obstruction. Patient has a very large LEFT lateral abdominal wall hernia. This is a [place] hernia containing small bowel and colon. The entire abdominal wall is not included. Th ere is no GI tract obstruction. As per history there is a LEFT lower quadrant colostomy which is not included in its entirety on this study. Pelvis: No free fluid or adenopathy within the pelvis. Suprapubic catheter in the urinary bladder. Ur inary bladder is not distended. Bones: Reidentified is a chronic appearing sacral decubitus ulcer. There is a track extending to the sacrum. The tract contains air and peripheral soft tissue thickening with a maximum diameter of 3.1 c m. No obvious progression of the ulcer. The central tract containing air is decreasing. CT/CT abdomen pelvis w con* [id number] IMPRESSION: 1. Sacral decubitus ulcer tract is reidentified. Air within the central tract is decreasing. Slight progression of the soft tissue thickening but no abscess . Sclerotic changes involving the sacral segments. No progression of osteomyeli tis. Chronic/treated osteomyelitis. 2. Large LEFT lateral abdominal wall hernia. No GI tract obstruction. The enti re hernia has not been included. 3. Prior cholecystectomy. 4. No renal obstruction. 5. Suprapubic catheter.
== END 2024-03-18 08:02 | disposition home or self-care (01) ==
LOC: RAD 08:02
PROVIDERS: PCP Family Medicine; Visit Provider Student in an Organized Health Care Education/Training Program
DX: M46.28 Osteomyelitis of vertebra, sacral and sacrococcygeal region (principal); K45.8 Other specified abdominal hernia without obstruction or gangrene; Z96.0 Presence of urogenital implants; Z90.49 Acquired absence of other specified parts of digestive tract
CPT/HCPCS: 74177; 99214; Q9967

== ENCOUNTER 2024-03-20 14:24 | Emergency (ER) | payer MEDICARE, MEDICAID, SELFPAY ==
[2024-03-20 14:31] VITALS: BP 145/84; PULSE 75; RESP 18; TEMP 36.7; O2SAT 95; BMI 61.9
--- NOTE | 2024-03-20 14:59 | ED_ITS ---
HPI - Wound/Laceration 2 General: Chief Complaint: Wound/Laceration Stated Complaint: right leg lac Time Seen by Provider: 03/20/24 14:45 Source: patient Mode of arrival: wheelchair Limitations: no limitations History of Present Illness: Patient is a 54-year-old female who is well-known to me from previous encounters here for injury/wound to her right lower extremity. Patient states 1 to 2 days ago she struck her right foot on something while in her electric wheelchair and busted open her toes again . I have seen patient twice from the emergency department due to lacerations to the plantar aspects of her toes. Last visit was over a month ago. She states after the incident a few days ago she contacted wound care who stated they would follow-up with her in clinic. Patient states this morning she accidentally fell from her wheelchair and skinned her right lower leg. Tetanus is UTD. She has no other injuries or complaints at this time. Onset (ago): hour(s) Extremity Location: Right: lower leg Place: home Patient tetanus UTD: Yes Context: accidental Associated symptoms: Reports no associated symptoms; Denies fever(s) Treatments prior to arrival: bandage Related Data Home Medications Medication Instructions Recorded Confirmed docusate sodium 100 mg capsule 100 mg PO BEDTIME 04/12/20 03/03/24 furosemide 20 mg tablet 20 mg PO BID 04/12/20 03/03/24 gabapentin 600 mg tablet 600 mg PO BEDTIME 04/12/20 03/03/24 omeprazole 40 mg capsule,delayed 40 mg PO BEDTIME 04/12/20 03/03/24 release potassium chloride 10 mEq 20 meq PO BEDTIME 04/12/20 03/03/24 capsule,extended release venlafaxine 150 mg 150 mg PO BEDTIME 04/12/20 03/03/24 capsule,extended release 24 hr ascorbic acid (vitamin C) 1,000 mg 1,000 mg PO BID 10/27/20 03/03/24 tablet gabapentin 100 mg capsule 100 mg PO QAM PRN Pain 11/19/22 03/03/24 baclofen 20 mg tablet 20 mg PO BEDTIME 02/26/23 03/03/24 warfarin 1 mg tablet See Rx Instructions .Route .COMPLEX 02/26/23 03/03/24 ergocalciferol (vitamin D2) 1,250 1,250 mcg PO DIRECTED 04/25/23 03/03/24 mcg (50,000 unit) capsule (Vitamin D2) trazodone 50 mg tablet 50 mg PO ONCE 09/24/23 03/03/24 Previous Rx's Medication Instructions Recorded methenamine hippurate 1 gram tablet 1 g PO BID #60 tabs 03/16/22 Cam boot to right #1 ea 09/10/22 sodium chloride 0.9 % irrigation 1 irrig irrigation DAILY open 11/02/22 solution wound cleansing #500 mL nystatin 100,000 unit/gram topical 1 applic topical BID #60 grams 01/21/23 powder fluconazole 100 mg tablet 100 mg PO DAILY #3 tabs 05/24/23 albuterol sulfate 90 mcg/actuation 2 inh inhalation Q4H PRN shortness 09/29/23 aerosol inhaler of breath or wheezing #6.7 grams methylprednisolone 4 mg tablets in See Rx Instructions PO .COMPLEX 09/29/23 a dose pack (Medrol (Edy)) #21 ea cephalexin 500 mg capsule 500 mg PO Q6H 7 days #28 caps 03/20/24 Allergies Allergy/AdvReac Type Severity Reaction Status Date / Time azithromycin Allergy Unknown Verified 03/03/24 09:21 Penicillins Allergy Unknown Verified 03/03/24 09:21 tramadol [From Ultram] Allergy Unknown Verified 03/03/24 09:21 vancomycin Allergy Unknown Verified 03/03/24 09:21 Review of Systems 2 Const: Denies: fever(s) Musc: Reports: extremity pain Skin/Breast: Reports: other (lacerations/skin tear/abrasion) PFSH ED 2 PFSH: Medical History Viral syndrome Colostomy in place Exposure to Streptococcal pharyngitis Pharyngitis Paraplegia Chronic venous insufficiency of lower extremity PVD (peripheral vascular disease) History of DVT (deep vein thrombosis) 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 Chronic osteomyelitis Neurogenic bladder Chronic cystitis Surgical History S/P cholecystectomy S/P section Suprapubic catheter Family History Family/Other Diabetes Cancer CAD (coronary artery disease) Mother , at age 74 Sepsis Cancer melanoma Diabetes Father Heart disease Social History Smoking and tobacco/nicotine status: never used tobacco/nicotine Alcohol intake: never Substance/Drug Use: never Lives independently: Yes Marital status: Current occupational status: disabled Physical Exam 2 Const: COMMON NORMALS: no acute distress, patient oriented x3, no limitations and alert GENERAL APPEARANCE: cooperative NUTRITIONAL APPEARANCE: obese morbidly obese (BMI 62) HENMT: COMMON NORMALS: normocephalic and atraumatic HEAD & SCALP: normal to inspection, normocephalic and atraumatic Neck/C-Spine: CERVICAL SPINE: No Cervical spine tenderness Resp: COMMON NORMALS: normal respiratory effort Back/Pelvis: COMMON NORMALS: thoracic and lumbar spine normal to inspection Extremity: GENERAL: Yes normal exam except as noted RIGHT LOWER EXTREMITY: Yes lower leg and Yes foot & digits (lacerations to plantar bases of R 3-4 toes) EXTREMITY IMAGE (FRONT): 1. skin tear-flap of skin is so thin that suturing is not feasible Neuro: COMMON NORMALS: patient oriented x3 SENSORIUM/ORIENTATION: Yes alert Skin: NARRATIVE SKIN EXAM: see above Course 2 Vital Signs: Vital signs: Vital Signs Temperature 98.0 F 03/20/24 14:31 Pulse Rate 75 03/20/24 14:31 Respiratory Rate 18 03/20/24 14:31 Blood Pressure 145/84 03/20/24 14:31 Pulse Oximetry 95 03/20/24 14:31 Oxygen Delivery Me thod Room Air 03/20/24 14:31 MDM - Wound/Laceration Medical Decision Making Patient sustaining lacerations to her toes at least 24 hours ago but stated it could have been up to 2 days ago-she does not remember . Will not suture these today. Skin tear will be cleaned and dressed. Her tetanus is up-to-date. Will place her on prophylactic antibiotics. She can follow-up with wound care as scheduled on Saturday. Medical Records I reviewed the patient's medical records. XR interpretation done by ED provider, pending radiology final review (Personal interpretation is unremarkable/negative for acute injury) Discharge Plan Discharge Patient Disposition: Home Clinical Impression: Noninfected skin tear of right lower extremity Qualifiers: Encounter type: initial encounter Qualified Code(s): S81.811A - Laceration without foreign body, right lower leg, initial encounter Laceration of toe of right foot Qualifiers: Encounter type: initial encounter Toe: lesser toe Damage to nail status: w ithout damage Foreign body presence: without foreign body Qualified Code(s): S 91.114A - Laceration without foreign body of right lesser toe(s) without damage to nail, initial encounter Condition: Stable Prescriptions: New cephalexin 500 mg capsule 500 mg PO Q6H 7 Days Qty: 28 0RF No Action gabapentin 600 mg tablet 600 mg PO BEDTIME docusate sodium 100 mg capsule 100 mg PO BEDTIME furosemide 20 mg tablet 20 mg PO BID omeprazole 40 mg capsule,delayed release(DR/EC) 40 mg PO BEDTIME potassium chloride 10 mEq capsule, extended release 20 meq PO BEDTIME venlafaxine 150 mg capsule,extended release 24hr 150 mg PO BEDTIME ascorbic acid (vitamin C) 1,000 mg tablet 1,000 mg PO BID ergocalciferol (vitamin D2) [Vitamin D2] 1,250 mcg (50,000 unit) capsule 1,250 mcg PO DIRECTED Rx Instructions: 1 tab once per month (DME) Cam boot to right See Rx Instructions .Route .MEDSUPPLY Qty: 1 0RF Rx Instructions: As directed fluconazole 100 mg tablet 100 mg PO DAILY Qty: 3 0RF trazodone 50 mg tablet 50 mg PO ONCE methenamine hippurate 1 gram tablet 1 g PO BID Qty: 60 12RF Hold Instructions: Guidelines Rx Instructions: Take 1000 mg of vitamin C with each dose of methenamine sodium chloride 0.9 % solution 1 irrig irrigation DAILY Qty: 500 2RF gabapentin 100 mg capsule 100 mg PO QAM PRN (Reason: Pain) nystatin 100,000 unit/gram powder 1 applic topical BID Qty: 60 0RF baclofen 20 mg tablet 20 mg PO BEDTIME warfarin 1 mg tablet See Rx Instructions .ROUTE .COMPLEX Rx Instructions: TAKE 5MG PO FIVE DAYS A WEEK AND 1MG TWO DAYS A WEEK Medrol (Edy) 4 mg tablets,dose pack See Rx Instructions .ROUTE .COMPLEX Qty: 21 0RF Rx Instructions: orally per package directions albuterol sulfate 90 mcg/actuation HFA aerosol inhaler 2 inh INHALATION Q4H PRN (Reason: shortness of breath or wheezing) Qty: 6.7 1RF Discharge Orders: Discharge ED (Routine); Ordered 03/20/24 Ordered By: Corinne Venegas Referrals: Jennifer Ordaz MD [Primary Care Provider] - Activity Restrictions/Additional Instructions: Keep wounds cleaned and dressed. Please follow-up with wound care on Saturday as scheduled. I will place you on prophylactic antibiotics to avoid infection. 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
--- NOTE | 2024-03-20 15:16 | XR_ITS ---
WS: [id number] XR foot RT min 3V* [id number] REASON FOR EXAM: fall FINDINGS: Severe osteopenia for patient age. The joint spaces of the forefoot are intact and relatively well preserved. There is mild narrowing of the joint spaces of the midfoot with mild subchondral sclerosis. There is mild narrowing of the subtalar joint with mild subchondral sclerosis. No acute fracture is identified. XR/XR foot RT min 3V* [id number] IMPRESSION: No acute fracture or dislocation. Mild osteoarthritis in the midfoot and hindfoot.
--- NOTE | 2024-03-20 15:16 | XR_ITS ---
WS: [id number] XR tibia fibula RT 2V [id number] REASON FOR EXAM: fall FINDINGS: The tibia and fibula are intact with no acute fracture identified. XR/XR tibia fibula RT 2V [id number] IMPRESSION: No acute abnormality.
[2024-03-20 17:14] VITALS: BP 144/84; PULSE 68; O2SAT 97
== END 2024-03-20 17:04 | disposition home or self-care (01) ==
PROVIDERS: Emergency Provider Physician Assistant; PCP Family Medicine
DX: S81.811A Laceration without foreign body, right lower leg, initial encounter (principal); S91.114A Laceration without foreign body of right lesser toe(s) without damage to nail, initial encounter; Z79.01 Long term (current) use of anticoagulants; W22.8XXA Striking against or struck by other objects, initial encounter
CPT/HCPCS: 73590; 73630; 99283

== ENCOUNTER → 2024-03-23 14:01 | Outpatient (BNVA) | payer MEDICARE, MEDICAID, SELFPAY | PROVIDERS: PCP Family Medicine; Visit Provider Thoracic Surgery (Cardiothoracic Vascular Surgery) | DX: I96 Gangrene, not elsewhere classified (principal); L89.153 Pressure ulcer of sacral region, stage 3; L89.892 Pressure ulcer of other site, stage 2; L97.521 Non-pressure chronic ulcer of other part of left foot limited to breakdown of skin; S81.811A Laceration without foreign body, right lower leg, initial encounter; W22.8XXA Striking against or struck by other objects, initial encounter | CPT/HCPCS: 97597; 97598 ==

== ENCOUNTER → 2024-03-24 07:06 | Outpatient (BNVA) | payer MEDICARE, MEDICAID, SELFPAY | PROVIDERS: PCP Family Medicine; Visit Provider Podiatrist Foot & Ankle Surgery | DX: I73.9 Peripheral vascular disease, unspecified (principal); I89.0 Lymphedema, not elsewhere classified; I87.2 Venous insufficiency (chronic) (peripheral); L60.3 Nail dystrophy; L84 Corns and callosities | CPT/HCPCS: 11056; 11721 ==

== ENCOUNTER → 2024-04-01 07:58 | Outpatient (BNVA) | payer MEDICARE, MEDICAID, SELFPAY | PROVIDERS: PCP Family Medicine; Visit Provider Thoracic Surgery (Cardiothoracic Vascular Surgery) | DX: I96 Gangrene, not elsewhere classified (principal); L89.154 Pressure ulcer of sacral region, stage 4; S81.811D Laceration without foreign body, right lower leg, subsequent encounter; S91.104D Unspecified open wound of right lesser toe(s) without damage to nail, subsequent encounter; W22.8XXD Striking against or struck by other objects, subsequent encounter; Z09 Encounter for follow-up examination after completed treatment for conditions other than malignant neoplasm | CPT/HCPCS: 87070; 87176; 87205; 97597 ==

== ENCOUNTER → 2024-04-08 07:57 | Outpatient (BNVA) | payer MEDICARE, MEDICAID, SELFPAY | PROVIDERS: PCP Family Medicine; Visit Provider Thoracic Surgery (Cardiothoracic Vascular Surgery) | DX: I96 Gangrene, not elsewhere classified (principal); L89.154 Pressure ulcer of sacral region, stage 4; S81.811D Laceration without foreign body, right lower leg, subsequent encounter; S91.114D Laceration without foreign body of right lesser toe(s) without damage to nail, subsequent encounter; W22.8XXD Striking against or struck by other objects, subsequent encounter | CPT/HCPCS: 97597; A6021; A6220 ==

== ENCOUNTER → 2024-04-15 07:49 | Outpatient (BNVA) | payer MEDICARE, MEDICAID, SELFPAY | PROVIDERS: PCP Family Medicine; Visit Provider Thoracic Surgery (Cardiothoracic Vascular Surgery) | DX: I96 Gangrene, not elsewhere classified (principal); L89.154 Pressure ulcer of sacral region, stage 4; L97.811 Non-pressure chronic ulcer of other part of right lower leg limited to breakdown of skin; Z09 Encounter for follow-up examination after completed treatment for conditions other than malignant neoplasm | CPT/HCPCS: 97597; A6021 ==

== ENCOUNTER → 2024-04-22 07:50 | Outpatient (BNVA) | payer MEDICARE, MEDICAID, SELFPAY | PROVIDERS: PCP Family Medicine; Visit Provider Thoracic Surgery (Cardiothoracic Vascular Surgery) | DX: I96 Gangrene, not elsewhere classified (principal); L89.154 Pressure ulcer of sacral region, stage 4; S81.811D Laceration without foreign body, right lower leg, subsequent encounter; W22.8XXD Striking against or struck by other objects, subsequent encounter | CPT/HCPCS: 97597; A6210; A6220 ==

== ENCOUNTER → 2024-04-29 07:52 | Outpatient (BNVA) | payer MEDICARE, MEDICAID, SELFPAY | PROVIDERS: PCP Family Medicine; Visit Provider Thoracic Surgery (Cardiothoracic Vascular Surgery) | DX: I96 Gangrene, not elsewhere classified (principal); L89.154 Pressure ulcer of sacral region, stage 4; S81.811D Laceration without foreign body, right lower leg, subsequent encounter; W22.8XXD Striking against or struck by other objects, subsequent encounter | CPT/HCPCS: 97597; A6210 ==

== ENCOUNTER → 2024-05-06 07:52 | Outpatient (BNVA) | payer MEDICARE, MEDICAID, SELFPAY | PROVIDERS: PCP Family Medicine; Visit Provider Thoracic Surgery (Cardiothoracic Vascular Surgery) | DX: I96 Gangrene, not elsewhere classified (principal); L89.154 Pressure ulcer of sacral region, stage 4; S81.811D Laceration without foreign body, right lower leg, subsequent encounter; W22.8XXD Striking against or struck by other objects, subsequent encounter | CPT/HCPCS: 97597; A6210 ==

== ENCOUNTER → 2024-05-13 07:54 | Outpatient (BNVA) | payer MEDICARE, MEDICAID, SELFPAY | PROVIDERS: PCP Family Medicine; Visit Provider Thoracic Surgery (Cardiothoracic Vascular Surgery) | DX: L89.154 Pressure ulcer of sacral region, stage 4 (principal); S81.811D Laceration without foreign body, right lower leg, subsequent encounter; W22.8XXD Striking against or struck by other objects, subsequent encounter; S31.821A Laceration without foreign body of left buttock, initial encounter; X58.XXXA Exposure to other specified factors, initial encounter | CPT/HCPCS: 97597; A6210 ==

== ENCOUNTER → 2024-05-20 07:43 | Outpatient (BNVA) | payer MEDICARE, MEDICAID, SELFPAY | PROVIDERS: PCP Family Medicine; Visit Provider Thoracic Surgery (Cardiothoracic Vascular Surgery) | DX: I96 Gangrene, not elsewhere classified (principal); L89.154 Pressure ulcer of sacral region, stage 4; S81.801D Unspecified open wound, right lower leg, subsequent encounter; X58.XXXD Exposure to other specified factors, subsequent encounter; S31.829D Unspecified open wound of left buttock, subsequent encounter; S91.104D Unspecified open wound of right lesser toe(s) without damage to nail, subsequent encounter | CPT/HCPCS: 97597; A6210 ==

== ENCOUNTER → 2024-05-27 07:47 | Outpatient (BNVA) | payer MEDICARE, MEDICAID, SELFPAY | PROVIDERS: PCP Family Medicine; Visit Provider Thoracic Surgery (Cardiothoracic Vascular Surgery) | DX: L89.154 Pressure ulcer of sacral region, stage 4 (principal); S91.104D Unspecified open wound of right lesser toe(s) without damage to nail, subsequent encounter; S81.801D Unspecified open wound, right lower leg, subsequent encounter; X58.XXXD Exposure to other specified factors, subsequent encounter; Z09 Encounter for follow-up examination after completed treatment for conditions other than malignant neoplasm | CPT/HCPCS: 97597; A6210 ==

== ENCOUNTER → 2024-06-03 07:38 | Outpatient (BNVA) | payer MEDICARE, MEDICAID, SELFPAY | PROVIDERS: PCP Family Medicine; Visit Provider Thoracic Surgery (Cardiothoracic Vascular Surgery) | DX: I96 Gangrene, not elsewhere classified (principal); L89.154 Pressure ulcer of sacral region, stage 4; S91.104D Unspecified open wound of right lesser toe(s) without damage to nail, subsequent encounter; S81.801D Unspecified open wound, right lower leg, subsequent encounter; X58.XXXD Exposure to other specified factors, subsequent encounter | CPT/HCPCS: 97597 ==

== ENCOUNTER → 2024-06-10 07:53 | Outpatient (BNVA) | payer MEDICARE, MEDICAID, SELFPAY | PROVIDERS: PCP Family Medicine; Visit Provider Thoracic Surgery (Cardiothoracic Vascular Surgery) | DX: I96 Gangrene, not elsewhere classified (principal); L89.154 Pressure ulcer of sacral region, stage 4; Z09 Encounter for follow-up examination after completed treatment for conditions other than malignant neoplasm | CPT/HCPCS: 97597; A6210 ==

== ENCOUNTER 2024-06-15 09:36 | Emergency (ER) | payer MEDICARE, MEDICAID, SELFPAY ==
[2024-06-15 09:40] VITALS: BP 110/71; PULSE 91; RESP 17; TEMP 36.7; O2SAT 100; BMI 53.1
--- NOTE | 2024-06-15 09:47 | ECG_ITS ---
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: : [id number] Requested By: Corinne Venegas Order Number: [id number] Reading MD: BRIAN PIMENTEL Measurements Intervals [place] Rate: 87 P: 30 SC: 138 QRS: 2 QRSD: 90 T: 22 QT: 335 QTc: 405 Interpretive Statements SINUS RHYTHM MODERATE VOLTAGE CRITERIA FOR LVH, CONSIDER NORMAL VARIANT [MEETS CRITERIA IN ONE OF: R(aVL), S(V1), R(V5), R(V5/V6)+S(V1)] MINIMAL ST DEPRESSION [0.025+ mV ST DEPRESSION] INTERPRETATION BASED ON A DEFAULT AGE OF 40 YEARS Compared to ECG 09/29/2023 01:21:42 ST (T wave) deviation now present T-wave abnormality no longer present Electronically Signed On 06-15-2024 16:07:08 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
--- NOTE | 2024-06-15 09:57 | XR_ITS ---
WS: [email or web address] Exam: XR chest 1V portable [id number] Date/Time of Exam: 06/15/2024 10:00 AM Reason For Exam: cough/congestion Comparison 09/28/2023. Lungs are fully expanded and clear. Low lung volumes secondary to limited inspiration. Cardiomediasti nal silhouette is unremarkable for technique. No pleural effusion. Unremarkable bony structures. Dext roscoliosis of the upper T-spine. XR/XR chest 1V portable [id number] IMPRESSION: 1. No acute cardiopulmonary finding. No change.
--- NOTE | 2024-06-15 10:04 | ED_ITS ---
HPI - SOB/Dyspnea 2 General: Chief Complaint: Shortness of Breath/Dyspnea Stated Complaint: sob Time Seen by Provider: 06/15/24 09:53 Source: patient Mode of arrival: wheelchair Limitations: no limitations History of Present Illness: HPI Narrative: Patient is a 54-year-old female who is well-known to me here for complaints of cough, congestion, fevers, body aches over the past 2 to 3 days. She states she is coughing up phlegm and has had fevers as high as 101. She does report a sick contact with her daughter/[id number] who is ill with similar symptoms. Patient feels like her chest is hurting from coughing. She is not having any severe headache. No vomiting or diarrhea. No rash. MD elicited complaint: shortness of breath and cough Onset (ago): day(s) Timing: constant Severity: moderate Relieving factors: nothing Associated symptoms: Reports chest congestion, chest pain and fever(s); Deny abdominal pain, dizziness, extremity pain, hemoptysis, lightheadedness, nausea, palpitations, syncope or vomiting Treatment prior to arrival: none Related Data Home Medications Medication Instructions Recorded Confirmed docusate sodium 100 mg capsule 100 mg PO BEDTIME 04/12/20 06/15/24 furosemide 20 mg tablet 20 mg PO BID PRN edima 04/12/20 06/15/24 gabapentin 600 mg tablet 600 mg PO BEDTIME 04/12/20 06/15/24 omeprazole 40 mg capsule,delayed 40 mg PO BEDTIME 04/12/20 06/15/24 release potassium chloride 10 mEq 20 - 30 meq PO BEDTIME 04/12/20 06/15/24 capsule,extended release venlafaxine 150 mg 150 mg PO BEDTIME 04/12/20 06/15/24 capsule,extended release 24 hr ascorbic acid (vitamin C) 1,000 mg 1,000 mg PO BID 10/27/20 06/15/24 tablet baclofen 20 mg tablet 20 mg PO BEDTIME 02/26/23 06/15/24 trazodone 50 mg tablet 50 mg PO ONCE 09/24/23 06/15/24 cefdinir 300 mg capsule 300 mg PO DAILY 06/15/24 06/15/24 dextromethorphan-guaifenesin 10 2 tab-cap PO Q8H PRN COUGH 06/15/24 06/15/24 mg-200 mg capsule (Coricidin HBP Chest Congestion-Cough) warfarin 5 mg tablet See Rx Instructions .Route .COMPLEX 06/15/24 06/15/24 Previous Rx's Medication Instructions Recorded Cam boot to right #1 ea 09/10/22 albuterol sulfate 1.25 mg/3 mL 2.5 mg (6 mL) inhalation .q4 PRN 06/15/24 solution for nebulization shortness of breath or wheezing #75 mL azithromycin 250 mg tablet See Rx Instructions PO .COMPLEX #6 06/15/24 tabs cefpodoxime 200 mg tablet 200 mg PO BID #14 tabs 06/15/24 dexamethasone 6 mg tablet 6 mg PO DAILY #6 tabs 06/15/24 Allergies Allergy/AdvReac Type Severity Reaction Status Date / Time levofloxacin [From Levaquin] Allergy Unknown Unknown Verified 04/01/24 15:41 azithromycin Allergy Unknown Verified 03/23/24 16:26 Penicillins Allergy Unknown Verified 03/23/24 16:26 tramadol [From Ultram] Allergy Unknown Verified 03/23/24 16:26 vancomycin Allergy Unknown Verified 03/23/24 16:26 amoxicillin AdvReac Unknown ADR-Seizure Verified 04/01/24 15:42 Review of Systems 2 Const: Reports: fever(s), chills, body aches, fatigue and malaise Eyes: Denies: change in vision, blurry vision, photophobia, eye discomfort, eye discharge, floaters or seeing flashes ENMT: Denies: throat pain, odynophagia, ear or mastoid pain, nasal discharge, nasal congestion or sinus pain Card: Reports: chest pain and swelling of feet/ankles (chronic lymphedema); Denies: palpitations, irregular heart rhythm, lightheadedness, syncope or pre- syncope Resp: Reports: dyspnea, productive cough and chest congestion; Denies: wheezing or hemoptysis GI: Denies: abdominal pain, nausea, vomiting or diarrhea : Reports: other (chronic catheter) Musc: Denies: neck pain, back pain, extremity pain or joint pain Skin/Breast: Denies: rash Neuro: Denies: headache(s) or dizziness PFSH ED 2 PFSH: Medical History Viral syndrome Colostomy in place Exposure to Streptococcal pharyngitis Pharyngitis Paraplegia Chronic venous insufficiency of lower extremity PVD (peripheral vascular disease) History of DVT (deep vein thrombosis) 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 Chronic osteomyelitis Neurogenic bladder Chronic cystitis Surgical History S/P cholecystectomy S/P section Suprapubic catheter Family History Family/Other Diabetes Cancer CAD (coronary artery disease) Mother , at age 74 Sepsis Cancer melanoma Diabetes Father Heart disease Social History Smoking and tobacco/nicotine status: never used tobacco/nicotine Alcohol intake: never Substance/Drug Use: never Lives independently: Yes Marital status: Current occupational status: disabled Physical Exam 2 Const: COMMON NORMALS: patient oriented x3 and alert EXAM LIMITATIONS: p hysical limitations (pt is confined to wheel chair) GENERAL APPEARANCE: c ooperative and ill appearing NUTRITIONAL APPEARANCE: obese morbidly obese (BMI 53.1) HENMT: COMMON NORMALS: normocephalic and atraumatic HEAD & SCALP: normal to inspection, normocephalic and atraumatic FACE & SINUS: other (cheeks are flushed) THROAT: posterior oropharynx normal and tonsils normal Eye: GENERAL EYE: appearance normal, both eyes and all related structures Neck/C-Spine: COMMON NORMALS: no lymphadenopathy Chest: COMMONS NORMALS: normal inspection of the chest and normal palpation of entire chest wall Resp: COMMON NORMALS: normal respiratory effort AUSCULTATION: wheezes Cardio: COMMON NORMALS: regular rate and regular rhythm RATE: regular rate RHYTHM: regular rhythm Extremity: NARRATIVE EXTREMITY EXAM: chronic LE lymphedema Neuro: JACQUE COMA SCALE: document GCS findings Jacque coma scale eye opening: Spontaneous [place] coma scale verbal response: Orientated [place] coma scale motor response: Obey commands [place] coma scale total score: 15 COMMON NORMALS: patient oriented x3 SENSORIUM/ORIENTATION: Yes alert Course 2 Vital Signs: Vital signs: Vital Signs Temperature 98.1 F 06/15/24 09:40 Pulse Rate 92 06/15/24 14:52 Respiratory Rate 16 06/15/24 10:47 Blood Pressure 121/76 06/15/24 14:52 Pulse Oximetry 92 06/15/24 14:52 Oxygen Delivery Me thod Nasal Cannula 06/15/24 14:49 Oxygen Flow Rate 2 06/15/24 14:49 MDM - SOB/Dyspnea Medical Decision Making Patient is a 54-year-old female here for productive cough, chest congestion, body aches, fevers. Known sick contact. Vital signs are stable apart from she is requiring a small amount of oxygen. She does wear BiPAP at night. Blood work overall is unremarkable. She has a normal white count. Minor elevations to her LFTs which are chronic. Baseline troponin is at her normal value. She is not having any complaints consistent with acute coronary syndrome. Her procalcitonin is normal. CXR showing no acute cardiopulmonary findings. COVID/flu/RSV swab obtained and negative. Given her significant comorbidities, patient will be given medications for typical/atypical respiratory bacterial coverage. Did collect respiratory panel and this is pending. She will be sent home with home oxygen. Will also place on steroids and nebulizers. Strict return ED precautions given to which patient voiced understanding. Medical Records I reviewed the patient's medical records. Lab Data I reviewed the patient's lab results. 06/15/24 12:07 06/15/24 12:07 Labs/Radiology: Radiology Impressions Chest X-Ray 06/15/24 09:57 IMPRESSION: 1. No acute cardiopulmonary finding. No change. Laboratory Results WBC 5.96 10^3/uL (3.29-11.43) 06/15/24 12:07 RBC 4.61 10^6/uL (3.85-5.65) 06/15/24 12:07 Hgb 13.90 g/dL (11.27-16.99) 06/15/24 12:07 Hct 44.6 % (36-47) 06/15/24 12:07 MCV 96.7 fl (85-98) 06/15/24 12:07 MCH 30.2 pg (27-33) 06/15/24 12:07 MCHC 31.2 g/dL (30-55) 06/15/24 12:07 RDW 13.9 % (12.1-15.1) 06/15/24 12:07 Plt Count 320 10^3/cmm (157-399) 06/15/24 12:07 MPV 9.7 fL (7.4-10.4) 06/15/24 12:07 Neut % (Auto) 77.3 % 06/15/24 12:07 Lymph % (Auto) 13.1 % 06/15/24 12:07 Worth % (Auto) 6.5 % 06/15/24 12:07 Eos % (Auto) 2.3 % 06/15/24 12:07 Baso % (Auto) 0.5 % 06/15/24 12:07 Neut # (Auto) 4.60 10^3/uL (1.8-7.7) 06/15/24 12:07 Lymph # (Auto) 0.8 10^3/uL (0.8-4.8) 06/15/24 12:07 Worth # (Auto) 0.4 10^3/uL (0.2-0.9) 06/15/24 12:07 Eos # (Auto) 0.1 10^3/uL (0.0-0.8) 06/15/24 12:07 Baso # (Auto) 0.0 10^3/uL (0.0-0.1) 06/15/24 12:07 Nucleated RBC % (auto) 0 % 06/15/24 12:07 Nucleated RBCs # 0.0 /100WBC 06/15/24 12:07 Sodium 142 mmol/L (136-145) 06/15/24 12:07 Potassium 3.9 mmol/L (3.5-5.1) 06/15/24 12:07 Chloride 101 mmol/L (98-107) 06/15/24 12:07 Carbon Dioxide 29 mmol/L (22-29) 06/15/24 12:07 Anion Gap 15.9 (5-19) 06/15/24 12:07 BUN 17 mg/dL (6-20) 06/15/24 12:07 Creatinine 1.0 mg/dL (0.5-0.9) H 06/15/24 12:07 GFR Calculation 57.4 mL/min (90-130) L 06/15/24 12:07 Glucose 106 mg/dL (65-115) 06/15/24 12:07 Calculated Osmolality 296 mOsm/kg (285-295) H 06/15/24 12:07 Calcium 9.0 mg/dL (8.5-10.5) 06/15/24 12:07 Total Bilirubin 0.3 mg/dL (0.15-1.2) 06/15/24 12:07 AST 41 U/L (0-32) H 06/15/24 12:07 ALT 47 U/L (0-33) H 06/15/24 12:07 Alkaline Phosphatase 113 U/L (35-105) H 06/15/24 12:07 Troponin T Baseline 15 ng/L (0-10) H 06/15/24 12:07 Total Protein 7.8 g/dL (6.6-8.7) 06/15/24 12:07 Albumin 4.0 g/dL (3.5-5.2) 06/15/24 12:07 Globulin 3.8 g/dL (1.3-4.6) 06/15/24 12:07 Procalcitonin 0.06 ng/mL (0-0.5) 06/15/24 12:07 Adenovirus (PCR) Not detected (NOT DETECT) 06/15/24 13:04 C. pneumoniae DNA (PCR) Not detected (NOT DETECT) 06/15/24 13:04 Coronavirus (PCR) Negative (Negative) 06/15/24 10:14 Coronavirus 229E (PCR) Not detected (NOT DETECT) 06/15/24 13:04 Human Metapneumovir PCR Detected (NOT DETECT) A 06/15/24 13:04 Influenza A (H1) PCR Not detected (NOT DETECT) 06/15/24 13:04 Influenza A (PCR) Negative (Negative) 06/15/24 10:14 Influ A (H1/09) PCR Not detected (NOT DETECT) 06/15/24 13:04 Influenza A (H3) PCR Not detected (NOT DETECT) 06/15/24 13:04 Influenza Type A (PCR) Not detected (NOT DETECT) 06/15/24 13:04 Influenza Type B (PCR) Not detected (NOT DETECT) 06/15/24 13:04 M. pneumoniae (PCR) Not detected (NOT DETECT) 06/15/24 13:04 Parainfluenza 1 (PCR) Not detected (NOT DETECT) 06/15/24 13:04 Parainfluenza 2 (PCR) Not detected (NOT DETECT) 06/15/24 13:04 Parainfluenza 3 (PCR) Not detected (NOT DETECT) 06/15/24 13:04 Parainfluenza 4 (PCR) Not detected (NOT DETECT) 06/15/24 13:04 RSV (PCR) Negative (Negative) 06/15/24 10:14 RSV Type A (PCR) Not detected (NOT DETECT) 06/15/24 13:04 RSV Type B (PCR) Not detected (NOT DETECT) 06/15/24 13:04 Entero/Rhino (PCR) Not detected (NOT DETECT) 06/15/24 13:04 SARS-CoV-2 (PCR) Not detected (NOT DETECT) 06/15/24 13:04 All radiology interpretation(s) finalized by discharge Discharge Plan Discharge Patient Disposition: Home Clinical Impression: Bronchitis Condition: Stable Prescriptions: New dexamethasone 6 mg tablet 6 mg PO DAILY Qty: 6 0RF albuterol sulfate 1.25 mg/3 mL solution for nebulization 2.5 mg inhalation .q4 PRN (Reason: shortness of breath or wheezing) Qty: 75 0RF cefpodoxime 200 mg tablet 200 mg PO BID Qty: 14 0RF Rx Instructions: must administer with a meal/food azithromycin 250 mg tablet See Rx Instructions .ROUTE .COMPLEX Qty: 6 0RF Rx Instructions: take 500 mg today (day 1), then 250 mg for 4 days (days 2-5) No Action gabapentin 600 mg tablet 600 mg PO BEDTIME docusate sodium 100 mg capsule 100 mg PO BEDTIME furosemide 20 mg tablet 20 mg PO BID PRN (Reason: edima) omeprazole 40 mg capsule,delayed release(DR/EC) 40 mg PO BEDTIME potassium chloride 10 mEq capsule, extended release 20 - 30 meq PO BEDTIME venlafaxine 150 mg capsule,extended release 24hr 150 mg PO BEDTIME ascorbic acid (vitamin C) 1,000 mg tablet 1,000 mg PO BID (DME) Cam boot to right See Rx Instructions .Route .MEDSUPPLY Qty: 1 0RF Rx Instructions: As directed trazodone 50 mg tablet 50 mg PO ONCE baclofen 20 mg tablet 20 mg PO BEDTIME cefdinir 300 mg capsule 300 mg PO DAILY warfarin 5 mg tablet See Rx Instructions .ROUTE .COMPLEX Rx Instructions: TAKE 1 TABLET BY MOUTH ON SATURDAY, SATURDAY, SATURDAY, SATURDAY AND SATURDAY. TAKE 1 & 1/2 TABLETS ON SATURDAY AND SATURDAY Coricidin HBP Chest Michael-Cough 10-200 mg Capsule 2 tab-cap PO Q8H PRN (Reason: COUGH ) Discharge Orders: Discharge ED (Routine); Ordered 06/15/24 Ordered By: Corinne Venegas Other Ambulatory Orders: DME: Nebulizer with Neb Kit (Order) Location: None Selected Ordered By: Corinne Venegas DME: Oxygen (Order) Location: None Selected Ordered By: Corinne Venegas Referrals: Jennifer Ordaz MD [Primary Care Provider] - Patient Instructions: Bronchitis (Acute) - Adult, How to Use a Nebulizer (DC) Activity Restrictions/Additional Instructions: As we discussed, we will attempt to treat you at home. I want you to return to the emergency department immediately for any worsening cough, shortness of breath, difficulty breathing, chest pain, generally feeling worse or unwell, or any other concerns you may have. I want you to follow-up with your primary care provider by the end of the week for reevaluation. 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
[2024-06-15] MEDS: methylPREDNISolone sod succ 125 mg/2 mL INJ IVP (10:38)
[2024-06-15 10:47] VITALS: PULSE 87; RESP 16; O2SAT 97
[2024-06-15] MEDS: ipratropium-albuterol 3 mL Neb INHALATION (10:50)
[2024-06-15 11:26] LABS: Covid PCR NEGATIVE (Negative); Influenza A NEGATIVE (Negative); Influenza B NEGATIVE (Negative); Respiratory Syncytial Virus Ce NEGATIVE (Negative)
--- NOTE | 2024-06-15 12:03 | ECG_ITS ---
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: : 1970 Requested By: Corinne Venegas Order Number: [id number] Reading MD: BRIAN PIMENTEL Measurements Intervals [place] Rate: 89 P: 25 W[place]: 151 QRS: 4 QRSD: 83 T: 14 QT: 321 QTc: 390 Interpretive Statements SINUS RHYTHM MODERATE VOLTAGE CRITERIA FOR LVH, CONSIDER NORMAL VARIANT [MEETS CRITERIA IN ONE OF: R(aVL), S(V1), R(V5), R(V5/V6)+S(V1)] MINIMAL ST DEPRESSION [0.025+ mV ST DEPRESSION] Compared to ECG 06/15/2024 09:47:14 No significant changes Electronically Signed On 06-15-2024 16:13:55 BEVEL GEAR GENERATOR OPERATOR by BRIAN PIMENTEL [id number]
[2024-06-15 12:13] LABS: Basophils % 0.5 %; Eosinophils # 0.1 10^3/uL (0.0-0.8); Eosinophils % 2.3 %; Hematocrit 44.6 % (36-47); Lymphocytes # 0.8 10^3/uL (0.8-4.8); Lymphocytes % 13.1 %; Mean Corpuscular HGB Conc 31.2 g/dL (30-55); Mean Corpuscular Hemoglobin 30.2 pg (27-33); Mean Corpuscular Volume 96.7 fl (85-98); Mean Platelet Volume 9.7 fL (7.4-10.4); Monocytes # 0.4 10^3/uL (0.2-0.9); Monocytes % 6.5 %; Neutrophils % 77.3 %; Nucleated Red Blood Cells % 0 %; Platelet Count 320 10^3/cmm (157-399); Red Blood Count 4.61 10^6/uL (3.85-5.65); Red Cell Distribution Width 13.9 % (12.1-15.1); White Blood Count 5.96 10^3/uL (3.29-11.43)
[2024-06-15 12:38] LABS: Troponin(5th) Baseline 15 ng/L (0-10)
[2024-06-15 12:46] LABS: Procalcitonin 0.06 ng/mL (0-0.5)
[2024-06-15 12:54] LABS: Alanine Aminotransferase 47 U/L (0-33); Alkaline Phosphatase 113 U/L (35-105); Aspartate Amino Transferase 41 U/L (0-32); Blood Urea Nitrogen 17 mg/dL (6-20); Carbon Dioxide 29 mmol/L (22-29); Creatinine Clr Calc Pharmacy 85.1556; Globulin 3.8 g/dL (1.3-4.6); Glomerular Filtration Rate 57.4 mL/min (90-130); Glucose 106 mg/dL (65-115); Total Bilirubin 0.3 mg/dL (0.15-1.2); Total Protein 7.8 g/dL (6.6-8.7)
[2024-06-15 13:02] VITALS: BP 122/75; PULSE 90; O2SAT 93
[2024-06-15 13:05] LABS: Anion Gap 15.9 (5-19); Chloride 101 mmol/L (98-107); Osmolality Calculated 296 mOsm/kg (285-295); Potassium 3.9 mmol/L (3.5-5.1); Sodium 142 mmol/L (136-145)
[2024-06-15 13:30] VITALS: O2SAT 88; O2SAT 93
[2024-06-15 14:49] VITALS: BP 121/76; PULSE 92; O2SAT 92
[2024-06-15 14:52] VITALS: BP 121/76; PULSE 92; O2SAT 92
[2024-06-15 15:07] LABS: Adenovirus Not Detected (NOT DETECT); Chlamydia Pneumoniae Not Detected (NOT DETECT); Coronavirus 229E,HKU1,NL63,OC4 Not Detected (NOT DETECT); Human Metapneumovirus Detected (NOT DETECT); Human Rhinovirus/Enterovirus Not Detected (NOT DETECT); Influenza A Not Detected (NOT DETECT); Influenza A H1 Not Detected (NOT DETECT); Influenza A H1-2009 Not Detected (NOT DETECT); Influenza A H3 Not Detected (NOT DETECT); Influenza B Not Detected (NOT DETECT); Mycoplasma Pneumoniae Not Detected (NOT DETECT); Parainfluenza Virus Type 1 Not Detected (NOT DETECT); Parainfluenza Virus Type 2 Not Detected (NOT DETECT); Parainfluenza Virus Type 3 Not Detected (NOT DETECT); Parainfluenza Virus Type 4 Not Detected (NOT DETECT); Respiratory Syncytial Virus A Not Detected (NOT DETECT); Respiratory Syncytial Virus B Not Detected (NOT DETECT); SARS-COV-2 Not Detected (NOT DETECT)
== END 2024-06-15 14:53 | disposition home or self-care (01) ==
PROVIDERS: Emergency Provider Physician Assistant; PCP Family Medicine
DX: J40 Bronchitis, not specified as acute or chronic (principal)
CPT/HCPCS: 0241U; 71045; 80053; 84145; 84484; 85025; 87486; 87581; 87633; 93005; 94640; 94760; 96374; 99285; J2919

== ENCOUNTER → 2024-06-23 06:48 | Outpatient (BNVA) | payer MEDICARE, MEDICAID, SELFPAY | PROVIDERS: PCP Family Medicine; Visit Provider Podiatrist Foot & Ankle Surgery | DX: E11.8 Type 2 diabetes mellitus with unspecified complications (principal); I73.9 Peripheral vascular disease, unspecified; I89.0 Lymphedema, not elsewhere classified; I87.2 Venous insufficiency (chronic) (peripheral); L60.3 Nail dystrophy; L84 Corns and callosities | CPT/HCPCS: 11056; 11721 ==

== ENCOUNTER → 2024-06-24 07:46 | Outpatient (BNVA) | payer MEDICARE, MEDICAID, SELFPAY | PROVIDERS: PCP Family Medicine; Visit Provider Thoracic Surgery (Cardiothoracic Vascular Surgery) | DX: I96 Gangrene, not elsewhere classified (principal); L89.154 Pressure ulcer of sacral region, stage 4 | CPT/HCPCS: 97597 ==

== ENCOUNTER → 2024-07-07 07:58 | Outpatient (BNVA) | payer MEDICARE, MEDICAID, SELFPAY | PROVIDERS: PCP Family Medicine; Visit Provider Thoracic Surgery (Cardiothoracic Vascular Surgery) | DX: I96 Gangrene, not elsewhere classified (principal); L89.154 Pressure ulcer of sacral region, stage 4 | CPT/HCPCS: 11042 ==

== ENCOUNTER → 2024-07-29 07:46 | Outpatient (BNVA) | payer MEDICARE, MEDICAID, SELFPAY | PROVIDERS: PCP Family Medicine; Visit Provider Thoracic Surgery (Cardiothoracic Vascular Surgery) | DX: I96 Gangrene, not elsewhere classified (principal); L89.154 Pressure ulcer of sacral region, stage 4 | CPT/HCPCS: 97597; A6220 ==

== ENCOUNTER 2024-08-04 06:58 | Outpatient (CLI) | payer MEDICAID, OTHER, SELFPAY ==
--- NOTE | 2024-08-04 07:10 | US_ITS ---
WS: [id number] RIGHT UPPER QUADRANT ULTRASOUND HISTORY: elevated liver enzymes COMPARISON: 01/21/2023, 08/11/2015 Liver: 15.2 cm in length. Coarse echotexture. Poorly visualized liver due to body habitus. No intrahe patic duct dilatation. Portal Vein: Not visualized. Gallbladder: Prior cholecystectomy. CBD: 0.8 cm Pancreas: Not visualized. Right kidney: 10.1 cm in length. Very poorly visualized RIGHT kidney. No obstruction or hydronephrosi s identified. Please note a tiny cortical cyst noted in the lower pole on a prior CT from 10/30/2022. Aorta and IVC: Not visualized. No ascites. US/US abdomen limited [id number] IMPRESSION: 1. Extremely limited evaluation of the RIGHT upper quadrant due to patient's b katina habitus. 2. Prior cholecystectomy. 3. No intrahepatic duct dilatation. 4. Mild hepatic steatosis.
== END 2024-08-04 06:59 | disposition home or self-care (01) ==
PROVIDERS: PCP Family Medicine; Visit Provider Family Medicine
DX: R74.8 Abnormal levels of other serum enzymes (principal); Z90.49 Acquired absence of other specified parts of digestive tract; K76.0 Fatty (change of) liver, not elsewhere classified; R93.2 Abnormal findings on diagnostic imaging of liver and biliary tract
CPT/HCPCS: 76705

== ENCOUNTER 2024-08-05 06:42 | Outpatient (CLI) | payer MEDICARE, MEDICAID, SELFPAY ==
--- NOTE | 2024-08-05 | ECG_ITS ---
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 Interpretive Statements LEXISCAN: Procedure: At the baseline, the blood pressure was 139/86mmHg with a heart rate of 73 bpm. The electrocardiogram showed normal sinus rhythm, normal axis with normal ST and T's. The Lexiscan was infused over a period of 20 seconds. A total of 0.4 mg of Lexiscan was infused. The stress phase was continued for a total of 5 minutes. Heart rate was at the end of stress phase was 87 bpm and a blood pressure of 110/79 mmHg. The EKG at the peak infusion revealed normal sinus rhythm with no significant ST-T wave changes. Sestamibi was injected 20 seconds after the Lexiscan infusion. Blood pressure at the end of recovery phase was 115/72 mmHg with a heart rate of 86 bpm. Conclusion: 1. Normal EKG response to Lexiscan infusion 2. No Lexiscan induced chest pain or cardiac arrhythmia. 3. Normal blood pressure and heart rate response. 4. Sestamibi/sestamibi perfusion scan pending; see separate report. Electronically Signed On 08-08-2024 23:51:41 E LEARNING DEVELOPER by Wes Chavez M.D. [id number]
[2024-08-05 07:01] VITALS: BMI 53.1
--- NOTE | 2024-08-05 07:06 | NMCV_ITS ---
NM jeremias perf SPECT r/s* [id number] Jami Gandhi Age: 54 Gender: F : 1970 Exam Date: 08/05/2024 08:00 Ordering Phys: Jennifer Ordaz MD Technologist: PEDRO Carvalho Exam Location: [facility] Indications: cp STRESS TEST [facility] IMAGE PROTOCOL Rest/Stress 1 Lexiscan Day Radiopharmaceutical Dose (mCi) Administration Site Administered by Rest: Tc-99m 10.8 IV Beth Palmer, [employer] Sestamibi Stress:Tc-99m 33 IV Beth Khangle, [employer] Sestamibi Rest: 05-Aug-2024 60 Discovery 630 Stress: 05-Aug-2024 30 Discovery 630 0.4mg Lexiscan. Supine position only as patient was unable to lay prone. SPECT RESULTS Technical Quality: Good Raw Data Analysis: Breast attenuation, Soft tissue attenuation Image Corrections: No attenuation or motion correction applied Summed Stress Score: 11 Summed Rest Score: 1 Summed Difference Score: 10 PERFUSION FINDINGS Large area of moderate reversibility noted in basal to distal lateral and basal to medium in for lateral wall suggestive of ischemia in left circumflex territory. Medium sized area of moderate reversibility noted in the apex of the left ventricle suggestive of possible lesion in distal LAD. This study is positive for ischemia. FUNCTIONAL RESULTS (calculated via Gated SPECT) Stress Image LV EF (%): 82 Stress EDV (mL):61 TID: 0.82 Stress ESV (mL):11 FUNCTIONAL FINDINGS: There is normal left ventricular systolic function. IMPRESSIONS Large area of moderate to severe ischemia noted in basal to distal and basal to mid inferolateral wall of the left ventricle suggestive of possible lesion in left circumflex. Medium sized area of moderate to severe ischemia noted in the distal LAD/apex of left ventricle. EKG segment will be documented separately. Trever Min MD (Electronically Signed) Final Date: 05 August 2024 15:37 S
[2024-08-05] MEDS: regadenoson 0.4 Mg/5 ml Syringe IVP (08:57)
[2024-08-05 09:09] VITALS: BP 115/72; PULSE 84
== END 2024-08-05 06:43 | disposition home or self-care (01) ==
LOC: CDL 06:43
PROVIDERS: PCP Family Medicine; Visit Provider Family Medicine
DX: R07.9 Chest pain, unspecified (principal); I99.8 Other disorder of circulatory system; R93.89 Abnormal findings on diagnostic imaging of other specified body structures
CPT/HCPCS: 36415; 78452; 93017; 96374; A9500; J2785

== ENCOUNTER → 2024-08-12 07:46 | Outpatient (BNVA) | payer MEDICARE, MEDICAID, SELFPAY | PROVIDERS: PCP Family Medicine; Visit Provider Thoracic Surgery (Cardiothoracic Vascular Surgery) | DX: I96 Gangrene, not elsewhere classified (principal); L89.154 Pressure ulcer of sacral region, stage 4 | CPT/HCPCS: 97597 ==

== ENCOUNTER 2024-08-18 08:38 | Inpatient (IN) | payer MEDICARE, MEDICAID, SELFPAY ==
[2024-08-18] VITALS (29 sets, daily range): BP systolic 104–179; BP diastolic 58–86; PULSE 61–75; RESP 8–23; TEMP 36.4–36.8; O2SAT 90–98
--- NOTE | 2024-08-18 08:45 | ECG_ITS ---
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 Measurements Intervals [place] Rate: 69 P: 34 [place]: 158 QRS: 6 QRSD: 95 T: 19 QT: 379 QTc: 407 Interpretive Statements SINUS RHYTHM LOW QRS VOLTAGE IN PRECORDIAL LEADS [QRS DEFLECTION < 1.0 mV IN CHEST LEADS] MODERATE VOLTAGE CRITERIA FOR LVH, CONSIDER NORMAL VARIANT [MEETS CRITERIA IN ONE OF: R(aVL), S(V1), R(V5), R(V5/V6)+S(V1)] Compared to ECG 06/15/2024 12:08:47 Low QRS voltage now present ST (T wave) deviation no longer present Electronically Signed On 08-19-2024 17:19:20 RETAIL ASSISTANT MANAGER by Pipo Moser M.D. [id number]
--- NOTE | 2024-08-18 08:45 | ECG_ITS ---
[facility] Test Date: 2024-08-18 Pat Name: Jami Gandhi Department: Room: Gender: Female Rn Appeals: : 1970 Requested By: Gerson Deutsch Order Number: [id number] Lynn MD: Pipo Moser M.D. Measurements Intervals [place] Rate: 69 P: 34 IA: 158 QRS: 6 QRSD: 95 T: 19 QT: 379 QTc: 407 Interpretive Statements SINUS RHYTHM LOW QRS VOLTAGE IN PRECORDIAL LEADS [QRS DEFLECTION < 1.0 mV IN CHEST LEADS] MODERATE VOLTAGE CRITERIA FOR LVH, CONSIDER NORMAL VARIANT [MEETS CRITERIA IN ONE OF: R(aVL), S(V1), R(V5), R(V5/V6)+S(V1)] Compared to ECG 06/15/2024 12:08:47 Low QRS voltage now present ST (T wave) deviation no longer present Electronically Signed On 08-19-2024 17:19:28 WATER SKI ASSEMBLER by Pipo Moser M.D. [id number]
--- NOTE | 2024-08-18 08:58 | W.ED.CHESTPA ---
HPI - Chest Pain General: Chief Complaint: ER Hold Stated Complaint: chest pain Time Seen by Provider: 08/18/24 08:41 History of Present Illness: 54-year-old female presents emergency room following chest pain that began this morning. She was at rest when it happened she has a known history of heart disease radiated up into her neck states it felt like it went to her ears. It resolved spontaneously she did not take anything for it she has not noticed anything that exacerbates or relieves her symptoms. Patient did stress test last month she has follow-up scheduled with cardiology regarding this. Patient is limited to wheelchair. She does not do a lot of exertional activities. Associated symptoms: Deny abdominal pain, dyspnea or fever(s) Related Data Home Medications ?Medication ?Instructions ?Recorded ?Confirmed docusate sodium 100 mg capsule 100 mg PO BEDTIME 04/12/20 08/18/24 furosemide 20 mg tablet 20 mg PO BID PRN edima 04/12/20 08/18/24 gabapentin 600 mg tablet 600 mg PO BEDTIME 04/12/20 08/18/24 omeprazole 40 mg capsule,delayed 40 mg PO BEDTIME 04/12/20 08/18/24 release potassium chloride 10 mEq 20 meq PO BEDTIME 04/12/20 08/18/24 capsule,extended release venlafaxine 150 mg 150 mg PO BEDTIME 04/12/20 08/18/24 capsule,extended release 24 hr ascorbic acid (vitamin C) 1,000 mg 1,000 mg PO BID 10/27/20 08/18/24 tablet baclofen 20 mg tablet 20 mg PO BEDTIME 02/26/23 08/18/24 trazodone 50 mg tablet 50 mg PO BEDTIME 09/24/23 08/18/24 cefdinir 300 mg capsule 300 mg PO DAILY 06/15/24 08/18/24 warfarin 5 mg tablet See Rx Instructions .Route .COMPLEX 06/15/24 08/18/24 albuterol sulfate 1.25 mg/3 mL 2.5 mg inhalation .Q4H PRN 08/18/24 08/18/24 solution for nebulization shortness of breath or wheezing Previous Rx's ?Medication ?Instructions ?Recorded Cam boot to right #1 ea 09/10/22 Allergies Allergy/AdvReac Type Severity Reaction Status Date / Time levofloxacin (From Levaquin) Allergy Unknown Unknown Verified 06/23/24 07:00 azithromycin Allergy Unknown Verified 06/23/24 07:00 Penicillins Allergy Unknown Verified 06/23/24 07:00 tramadol (From Ultram) Allergy Unknown Verified 06/23/24 07:00 vancomycin Allergy Unknown Verified 06/23/24 07:00 amoxicillin AdvReac Unknown ADR-Seizure Verified 06/23/24 07:00 Review of Systems Const: Denies: fever(s) or chills Card: Reports: chest pain Resp: Denies: dyspnea GI: Denies: abdominal pain : Denies: dysuria, urinary frequency or urinary urgency Musc: Denies: neck pain or back pain Skin/Breast: Denies: rash PFSH ED PFSH: Medical History (Updated 08/18/24 @ 14:00 by Kaylie Clements MD) History of angiography 2015 abdominal angiography and lower extremity angiography - normal abdominal aorta, pelvic vessels normal, all lower extremity vessels unremarkable, 3 vessel runoff below both knees History of cardiovascular stress test 07/2024 abnormalities on myocardial perfusion scanning History of sleep study 05/2017 - cpap auto-titrating 15-19 Wound of sacral region goes to wound care clinic Abscess of sacrum Parastomal hernia Ventral incisional hernia GERD (gastroesophageal reflux disease) Depression Fracture of fifth toe, right, closed History of sleep apnea sleep study in 2016 recommended auto-titrating cpap 15-[address] Chronic venous insufficiency of lower extremity PVD (peripheral vascular disease) History of DVT (deep vein thrombosis) (2004) and pulmonary embolism 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 Chronic osteomyelitis Neurogenic bladder Chronic cystitis Surgical History (Updated 08/18/24 @ 13:51 by Kaylie Clements MD) History of carpal tunnel release History of abdominal surgery (2007) excision of pelvic cysts complicated by bowel perforation, had multiple procedures including colostomy History of inferior vena caval filter placement (2004) still in place in 08/2024 History of incision and drainage (04/2019) sacral wound History of back surgery (2004) for spinal abscess x 2 History of hysterectomy (2003) S/P cholecystectomy S/P section Suprapubic catheter (~2004) following urology in [place] Family History (Updated 08/18/24 @ 12:46 by Kaylie Clements MD) Family/Other Diabetes Cancer CAD (coronary artery disease) Mother , at age 74 Sepsis Cancer melanoma Diabetes Father Heart disease Other Dementia Diabetes mellitus type 1 Hypertension Stroke Social History (Updated 08/18/24 @ 13:52 by Kaylie Clements MD) Smoking and tobacco/nicotine status: never used tobacco/nicotine Alcohol intake: never Substance/Drug Use: never Additional social history: daughter performs dressing changes twice per day, she and other family provide assistance as needed, wheelchair dependent, able to use transfer board Caregiver/support person: Yes Lives independently: Yes Marital status: Current occupational status: disabled Physical Exam Const: GENERAL APPEARANCE: cooperative ORIENTATION/CONSCIOUSNESS: Yes awake, Yes oriented to person, Yes oriented to place and Yes oriented to time HENMT: COMMON NORMALS: normocephalic, atraumatic and hearing grossly normal bilaterally HEAD & SCALP: normocephalic and atraumatic Resp: COMMON NORMALS: normal respiratory effort, No retractions, No use of accessory muscles and clear to auscultation bilaterally AUSCULTATION: clear to auscultation bilaterally Cardio: COMMON NORMALS: regular rate, regular rhythm and No murmurs present (Cardio) RATE: regular rate RHYTHM: regular rhythm GI: COMMON NORMALS: Soft to palpation and No hepatosplenomegaly present AUSCULTATION: Yes normoactive bowel sounds PALPATION: Yes Soft to palpation, No Tenderness to palpation present (GI), No Guarding due to palpation present (GI) and Yes No hepatosplenomegaly present Extremity: COMMON NORMALS: normal to inspection, capillary refill normal, no clubbing, cyanosis or edema, no calf tenderness and no pedal edema Neuro: SENSORIUM/ORIENTATION: Yes oriented to person, Yes oriented to place and Yes oriented to time Skin: COMMON NORMALS: no rashes or lesions noted GENERAL SKIN EXAM: no rashes or lesions noted Course Vital Signs: Vital signs: Vital Signs Temperature 97.6 F 08/18/24 08:43 Pulse Rate 68 08/18/24 13:00 Respiratory Rate 18 08/18/24 08:43 Blood Pressure 128/68 08/18/24 13:00 Pulse Oximetry 96 08/18/24 13:00 Oxygen Delivery Me thod Room Air 08/18/24 13:58 MDM - Chest Pain Medical Decision Making Cardiac enzymes are negative EKG shows nonspecific ST changes however reviewing her chart patient had a positive stress test on Cheryl 29 positive for at least two-vessel disease fairly significant areas of reversibility. She is having increasing unstable angina episodes. She is pain-free at this time. There was also reported widening mediastinum on her chest x-ray CT of the chest did not show any acute dissection or PE. Discussed with on-call cardiology Dr. Moser will admit to the hospitalist cardiology to consult. Reviewed findings with the patient Medical Records I reviewed the patient's medical records. Lab Data I reviewed the patient's lab results. 08/18/24 08:58 08/18/24 08:58 Radiology Impressions Chest X-Ray 08/18/24 09:30 IMPRESSION: 1. Low lung volumes due to poor inspiration. 2. Prominent mediastinum as seen on the most recent examination of 06/15/2024. Mediastinum has continued to increase in diameter since 2019. This may all be positional and due to aortic ectasia. Cannot exclude aortic aneurysm or dissection. Consider evaluation of the thoracic aorta by CTA. Chest CTA 08/18/24 10:36 IMPRESSION: 1. Normal caliber thoracic aorta. No evidence of aneurysm or dissection. 2. The lungs are well aerated. No acute pulmonary infiltrates. 3. Proximal main pulmonary arteries are normal. 4. Tiny esophageal hernia. 5. Cholecystectomy clips. Laboratory Results WBC 5.03 10^3/uL (3.29-11.43) 08/18/24 08:58 RBC 4.89 10^6/uL (3.85-5.65) 08/18/24 08:58 Hgb 14.80 g/dL (11.27-16.99) 08/18/24 08:58 Hct 46.0 % (36-47) 08/18/24 08:58 MCV 94.1 fl (85-98) 08/18/24 08:58 MCH 30.3 pg (27-33) 08/18/24 08:58 MCHC 32.2 g/dL (30-55) 08/18/24 08:58 RDW 13.9 % (12.1-15.1) 08/18/24 08:58 Plt Count 557 10^3/cmm (157-399) H 08/18/24 08:58 MPV 10.5 fL (7.4-10.4) H 08/18/24 08:58 Neut % (Auto) 56.0 % 08/18/24 08:58 Lymph % (Auto) 29.0 % 08/18/24 08:58 [place] % (Auto) 7.8 % 08/18/24 08:58 Eos % (Auto) 6.2 % 08/18/24 08:58 Baso % (Auto) 0.8 % 08/18/24 08:58 Neut # (Auto) 2.82 10^3/uL (1.8-7.7) 08/18/24 08:58 Lymph # (Auto) 1.5 10^3/uL (0.8-4.8) 08/18/24 08:58 [place] # (Auto) 0.4 10^3/uL (0.2-0.9) 08/18/24 08:58 Eos # (Auto) 0.3 10^3/uL (0.0-0.8) 08/18/24 08:58 Baso # (Auto) 0.0 10^3/uL (0.0-0.1) 08/18/24 08:58 Nucleated RBC % (auto) 0 % 08/18/24 08:58 Nucleated RBCs # 0.0 /100WBC 08/18/24 08:58 PT 33.00 SECONDS (12.1-14.9) H 08/18/24 08:58 INR 3.03 (0.8-1.2) H 08/18/24 08:58 Sodium 141 mmol/L (136-145) 08/18/24 08:58 Potassium 3.9 mmol/L (3.5-5.1) 08/18/24 08:58 Chloride 103 mmol/L (98-107) 08/18/24 08:58 Carbon Dioxide 26 mmol/L (22-29) 08/18/24 08:58 Anion Gap 15.9 (5-19) 08/18/24 08:58 BUN 19 mg/dL (6-20) 08/18/24 08:58 Creatinine 0.7 mg/dL (0.5-0.9) 08/18/24 08:58 GFR Calculation 86.6 mL/min (90-130) L 08/18/24 08:58 Glucose 107 mg/dL (65-115) 08/18/24 08:58 Calculated Osmolality 295 mOsm/kg (285-295) 08/18/24 08:58 Calcium 9.4 mg/dL (8.5-10.5) 08/18/24 08:58 Total Bilirubin 0.2 mg/dL (0.15-1.2) 08/18/24 08:58 AST 39 U/L (0-32) H 08/18/24 08:58 ALT 47 U/L (0-33) H 08/18/24 08:58 Alkaline Phosphatase 93 U/L (35-105) 08/18/24 08:58 Troponin T Baseline 20 ng/L (0-10) H 08/18/24 08:58 Troponin T 120 Minute 20.21 ng/L (0-10) H 08/18/24 11:30 Delta Troponin T 0.21 ABS# (0-10) 08/18/24 11:30 Total Protein 8.0 g/dL (6.6-8.7) 08/18/24 08:58 Albumin 4.2 g/dL (3.5-5.2) 08/18/24 08:58 Globulin 3.8 g/dL (1.3-4.6) 08/18/24 08:58 Coronavirus (PCR) Negative (Negative) 08/18/24 09:49 Influenza A (PCR) Negative (Negative) 08/18/24 09:49 Influenza Type B (PCR) Negative (Negative) 08/18/24 09:49 RSV (PCR) Negative (Negative) 08/18/24 09:49 All radiology interpretation(s) finalized by discharge Discharge Plan Discharge Patient Disposition: Admitted As Inpatient Admit Provider: Kaylie Clements Clinical Impression: Unstable angina, History of DVT (deep vein thrombosis), Positive cardiac stress test Condition: Stable Coding Level of Care Code ED Bingo Cashier for Hetal Huitron
--- NOTE | 2024-08-18 09:30 | XR_ITS ---
WS: [id number] PORTABLE CHEST HISTORY: Chest pain COMPARISON: 06/15/2024, 06/23/2019 Lung volumes are decreased due to poor inspiration. No areas of consolidation. No fluid overload. No pleural effusion or pneumothorax. Cardiac size: Normal. Mediastinum/Aorta: Mild widening of the mediastinum similar to the most recent study is in part due to poor inspiration and semiupright positioning. No osseous abnormality seen. XR/XR chest 1V portable [id number] IMPRESSION: 1. Low lung volumes due to poor inspiration. 2. Prominent mediastinum as seen on the most recent examination of 06/15/2024. Mediastinum has continued to increase in diameter since 2019. This may all be p ositional and due to aortic ectasia. Cannot exclude aortic aneurysm or dissecti on. Consider evaluation of the thoracic aorta by CTA.
[2024-08-18 09:41] LABS: Basophils % 0.8 %; Eosinophils # 0.3 10^3/uL (0.0-0.8); Eosinophils % 6.2 %; Lymphocytes # 1.5 10^3/uL (0.8-4.8); Mean Corpuscular HGB Conc 32.2 g/dL (30-55); Mean Corpuscular Hemoglobin 30.3 pg (27-33); Mean Corpuscular Volume 94.1 fl (85-98); Mean Platelet Volume 10.5 fL (7.4-10.4); Monocytes # 0.4 10^3/uL (0.2-0.9); Monocytes % 7.8 %; Neutrophils # 2.82 10^3/uL (1.8-7.7); Nucleated Red Blood Cells % 0 %; Platelet Count 557 10^3/cmm (157-399); Red Blood Count 4.89 10^6/uL (3.85-5.65); Red Cell Distribution Width 13.9 % (12.1-15.1); White Blood Count 5.03 10^3/uL (3.29-11.43)
[2024-08-18] MEDS: aspirin 81 mg Chew Tablet 324 MG PO (09:46)
[2024-08-18 09:55] LABS: Alanine Aminotransferase 47 U/L (0-33); Albumin Level 4.2 g/dL (3.5-5.2); Alkaline Phosphatase 93 U/L (35-105); Anion Gap 15.9 (5-19); Aspartate Amino Transferase 39 U/L (0-32); Blood Urea Nitrogen 19 mg/dL (6-20); Calcium 9.4 mg/dL (8.5-10.5); Carbon Dioxide 26 mmol/L (22-29); Chloride 103 mmol/L (98-107); Creatinine Clr Calc Pharmacy 121.6509; Globulin 3.8 g/dL (1.3-4.6); Glomerular Filtration Rate 86.6 mL/min (90-130); Glucose 107 mg/dL (65-115); Osmolality Calculated 295 mOsm/kg (285-295); Potassium 3.9 mmol/L (3.5-5.1); Sodium 141 mmol/L (136-145); Total Bilirubin 0.2 mg/dL (0.15-1.2); Troponin(5th) Baseline 20 ng/L (0-10)
--- NOTE | 2024-08-18 10:36 | CT_ITS ---
WS: [id number] CTA THORACIC TECHNIQUE: Contrast enhanced CTA of the thoracic aorta with coronal and sagittal reformatted images and maximum intensity projection (MIP) images. CLINICAL INFORMATION: widened mediastrienum COMPARISON: None. DLP: 1042.[address] scans at [facility] use at least one of these dose optimization techniques: automated exposure control; mA and/or kV adjustment per patient size (includes targeted exams where dose is matched to clinical indication); or iterative reconstruction. FINDINGS: Normal caliber thoracic aorta. No evidence of aneurysm or dissection. Normal caliber descending thoracic aorta. Celiac is patent. Small esophageal hiatal hernia. Lungs are well aerated. Proximal great vessels are patent. Cardiomegaly. Proximal main pulmonary arteries are normal. Normal segmental pulmonary arteries. Mild hepatomegaly and splenomegaly. Adrenal glands are normal. Moderate thoracic kyphosis with hypertrophic changes and ankylosis. CT/CT angio chest 61304 IMPRESSION: 1. Normal caliber thoracic aorta. No evidence of aneurysm or dissection. 2. The lungs are well aerated. No acute pulmonary infiltrates. 3. Proximal main pulmonary arteries are normal. 4. Tiny esophageal hernia. 5. Cholecystectomy clips.
[2024-08-18 10:38] LABS: Influenza A NEGATIVE (Negative); Influenza B NEGATIVE (Negative); Respiratory Syncytial Virus Ce NEGATIVE (Negative); SARS-CoV-2 PCR NEGATIVE (Negative)
[2024-08-18] MEDS: iohexol 350 mg/mL 500 mL Btl (per mL) IV (11:08)
--- NOTE | 2024-08-18 11:28 | ECG_ITS ---
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 Measurements Intervals [place] Rate: 64 P: 41 IA: 162 QRS: -7 QRSD: 102 T: 20 QT: 409 QTc: 424 Interpretive Statements SINUS RHYTHM LOW QRS VOLTAGE IN PRECORDIAL LEADS [QRS DEFLECTION < 1.0 mV IN CHEST LEADS] MINIMAL VOLTAGE CRITERIA FOR LVH, CONSIDER NORMAL VARIANT [MEETS CRITERIA IN ONE OF: R(aVL), S(V1), R(V5), R(V5/V6)+S(V1)] MINIMAL ST DEPRESSION [0.025+ mV ST DEPRESSION] Compared to ECG 08/18/2024 08:45:57 ST (T wave) deviation now present Electronically Signed On 08-19-2024 17:58:21 ADVICE LINE RN by Pipo Moser M.D. [email or web address] [id number]
[2024-08-18 11:55] LABS: Troponin 5 2HR 20.21 ng/L (0-10); Troponin 5 2HR Delta 0.21 ABS# (0-10)
--- NOTE | 2024-08-18 12:34 | PM.HP ---
Providers/Chief Complaint Admitting Physician: Kaylie Clements MD Primary Care Provider: Jennifer Ordaz MD Chief Complaint: chest pain History of Present Illness Jami Gandhi is a 54 year old female who presented to the emergency room with chief complaint of chest pain. She has been having chest pain off and on for some time. She had seen her primary care provider about this and was referred for outpatient stress testing. This was performed on August 05. Results are noted below but showed an myocardial perfusion imaging potential for multivessel disease. Pain occurs in the substernal region and radiates up into her jaw and ears. Describes it as a tightness sensation. It occurs both at rest and with exertion. No known prior history of coronary artery disease. She has no history of diabetes, hyperlipidemia or kidney disease. She is chronically on furosemide for fluid buildup both in her legs around her heart . She has a history of sleep apnea and is on CPAP therapy at home. She has oxygen for as needed use only. She had respiratory illness in June which was the last time that she needed some oxygen. She lives independently with family support. 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 She has no associated nausea or vomiting. Her breathing has been okay. No dizziness or diaphoresis. She is currently chest pain-free. She received aspirin in the emergency room. She is on chronic anticoagulation in the form of warfarin with a therapeutic INR. This is due to a history of DVT and PE years ago. She has an IVC filter in place. She has a history of reflux but symptoms are not what she would consider similar. She is on a chronic PPI. Pain was more severe today leading to her to come in to be evaluated. Initial troponin is 20. Initial EKG was sinus rhythm with only nonspecific ST segment changes. Cardiology has been contacted and will see Mrs. Gandhi in consultation. She is being admitted to the hospitalist service. Review of Systems General: Reports: Other (ROS as per HPI or as otherwise noted here) Const: Reports: change in weight (Trying to lose weight by addressing dietary changes); Denies: fever(s) ENMT: Denies: throat pain or nasal discharge Resp: Denies: dyspnea, productive cough or non-productive cough GI: Denies: change in stool character or hematochezia : Reports: other (No change in urine output or appearance recently); Denies: hematuria Skin/Breast: Reports: lesions (Chronic sacral wound followed by wound care no known recent change) Medications/Allergies Home Medications ?Medication ?Instructions ?Recorded ?Confirmed ?Last Taken ?Type docusate sodium 100 mg capsule 100 mg PO BEDTIME 04/12/20 08/18/24 08/17/24 History furosemide 20 mg tablet 20 mg PO BID PRN edima 04/12/20 08/18/24 06/14/24 History gabapentin 600 mg tablet 600 mg PO BEDTIME 04/12/20 08/18/24 08/17/24 History omeprazole 40 mg capsule,delayed 40 mg PO BEDTIME 04/12/20 08/18/24 08/17/24 History release potassium chloride 10 mEq 20 meq PO BEDTIME 04/12/20 08/18/24 08/17/24 History capsule,extended release venlafaxine 150 mg 150 mg PO BEDTIME 04/12/20 08/18/24 08/17/24 History capsule,extended release 24 hr ascorbic acid (vitamin C) 1,000 mg 1,000 mg PO BID 10/27/20 08/18/24 08/17/24 History tablet Cam boot to right #1 ea 09/10/22 08/18/24 Unknown Rx baclofen 20 mg tablet 20 mg PO BEDTIME 02/26/23 08/18/24 08/17/24 History trazodone 50 mg tablet 50 mg PO BEDTIME 09/24/23 08/18/24 08/17/24 History cefdinir 300 mg capsule 300 mg PO DAILY 06/15/24 08/18/24 08/17/24 History warfarin 5 mg tablet See Rx Instructions .Route .COMPLEX 06/15/24 08/18/24 08/17/24 History albuterol sulfate 1.25 mg/3 mL 2.5 mg inhalation .Q4H PRN 08/18/24 08/18/24 Unknown History solution for nebulization shortness of breath or wheezing Allergies Allergy/AdvReac Type Severity Reaction Status Date / Time levofloxacin (From Levaquin) Allergy Unknown Unknown Verified 06/23/24 07:00 azithromycin Allergy Unknown Verified 06/23/24 07:00 Penicillins Allergy Unknown Verified 06/23/24 07:00 tramadol (From Ultram) Allergy Unknown Verified 06/23/24 07:00 vancomycin Allergy Unknown Verified 06/23/24 07:00 amoxicillin AdvReac Unknown ADR-Seizure Verified 06/23/24 07:00 PFSH Acute PFSH: Medical History (Updated 08/18/24 @ 14:00 by Kaylie Clements MD) History of angiography 2015 abdominal angiography and lower extremity angiography - normal abdominal aorta, pelvic vessels normal, all lower extremity vessels unremarkable, 3 vessel runoff below both knees History of cardiovascular stress test 07/2024 abnormalities on myocardial perfusion scanning History of sleep study 05/2017 - cpap auto-titrating 15-19 Wound of sacral region goes to wound care clinic Abscess of sacrum Parastomal hernia Ventral incisional hernia GERD (gastroesophageal reflux disease) Depression Fracture of fifth toe, right, closed History of sleep apnea sleep study in 2016 recommended auto-titrating cpap 15-[address] Chronic venous insufficiency of lower extremity PVD (peripheral vascular disease) History of DVT (deep vein thrombosis) (2004) and pulmonary embolism 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 Chronic osteomyelitis Neurogenic bladder Chronic cystitis Surgical History (Updated 08/18/24 @ 13:51 by Kaylie Clements MD) History of carpal tunnel release History of abdominal surgery (2007) excision of pelvic cysts complicated by bowel perforation, had multiple procedures including colostomy History of inferior vena caval filter placement (2004) still in place in 08/2024 History of incision and drainage (04/2019) sacral wound History of back surgery (2004) for spinal abscess x 2 History of hysterectomy (2003) S/P cholecystectomy S/P section Suprapubic catheter (~2004) following urology in [place] Family History (Updated 08/18/24 @ 12:46 by Kaylie Clements MD) Family/Other Diabetes Cancer CAD (coronary artery disease) Mother , at age 74 Sepsis Cancer melanoma Diabetes Father Heart disease Other Dementia Diabetes mellitus type 1 Hypertension Stroke Social History (Updated 08/18/24 @ 13:52 by Kaylie Clements MD) Smoking and tobacco/nicotine status: never used tobacco/nicotine Alcohol intake: never Substance/Drug Use: never Additional social history: daughter performs dressing changes twice per day, she and other family provide assistance as needed, wheelchair dependent, able to use transfer board Caregiver/support person: Yes Lives independently: Yes Marital status: Current occupational status: disabled Vitals/I&O/Wt Last Vital Signs Temp 97.6 F 08/18/24 08:43 Pulse 61 08/18/24 10:00 Resp 18 08/18/24 08:43 BP 119/68 08/18/24 10:00 Pulse Ox 98 08/18/24 10:00 O2 Del Method Room Air 08/18/24 10:00 Weight last 48 hrs Weight 136.078 kg Physical Exam Narrative: Patient is awake and alert, able to provide history. Normocephalic. Pupils are equal reactive and extraocular movements are intact. Nasopharynx is clear. Oropharynx with moist mucous membranes. No perioral cyanosis. Neck is large but supple. Lungs are clear to auscultation bilaterally without any rales or wheezes noted. Cardiovascular exam reveals distant heart sounds but regular rhythm. No murmurs. Chest wall is not tender to palpation. Abdomen is soft. Colostomy is intact to the left lower quadrant. Unable to visualize the stoma currently. Suprapubic catheter is intact. Some drainage is noted around the catheter site but skin is intact. Have not viewed sacral wound at this time but per report dressing is in place from most recent change. Right lower extremity is larger in diameter than left lower extremity. Both legs have dry skin with some stasis changes. Healing scabbed sore to right lower extremity noted above the ankle. Dry skin to both feet. Left great toe with healing wound at the nailbed. Heels are both soft. Has some sensation to light touch at both feet. Speech is clear. Face symmetric. Normal affect. Data 08/18/24 08:58 08/18/24 08:58 Other Labs: Radiology Impressions Chest X-Ray 08/18/24 09:30 IMPRESSION: 1. Low lung volumes due to poor inspiration. 2. Prominent mediastinum as seen on the most recent examination of 06/15/2024. Mediastinum has continued to increase in diameter since 2019. This may all be positional and due to aortic ectasia. Cannot exclude aortic aneurysm or dissection. Consider evaluation of the thoracic aorta by CTA. Chest CTA 08/18/24 10:36 IMPRESSION: 1. Normal caliber thoracic aorta. No evidence of aneurysm or dissection. 2. The lungs are well aerated. No acute pulmonary infiltrates. 3. Proximal main pulmonary arteries are normal. 4. Tiny esophageal hernia. 5. Cholecystectomy clips. Laboratory Results WBC 5.03 10^3/uL (3.29-11.43) 08/18/24 08:58 RBC 4.89 10^6/uL (3.85-5.65) 08/18/24 08:58 Hgb 14.80 g/dL (11.27-16.99) 08/18/24 08:58 Hct 46.0 % (36-47) 08/18/24 08:58 MCV 94.1 fl (85-98) 08/18/24 08:58 MCH 30.3 pg (27-33) 08/18/24 08:58 MCHC 32.2 g/dL (30-55) 08/18/24 08:58 RDW 13.9 % (12.1-15.1) 08/18/24 08:58 Plt Count 557 10^3/cmm (157-399) H 08/18/24 08:58 MPV 10.5 fL (7.4-10.4) H 08/18/24 08:58 Neut % (Auto) 56.0 % 08/18/24 08:58 Lymph % (Auto) 29.0 % 08/18/24 08:58 [place] % (Auto) 7.8 % 08/18/24 08:58 Eos % (Auto) 6.2 % 08/18/24 08:58 Baso % (Auto) 0.8 % 08/18/24 08:58 Neut # (Auto) 2.82 10^3/uL (1.8-7.7) 08/18/24 08:58 Lymph # (Auto) 1.5 10^3/uL (0.8-4.8) 08/18/24 08:58 [place] # (Auto) 0.4 10^3/uL (0.2-0.9) 08/18/24 08:58 Eos # (Auto) 0.3 10^3/uL (0.0-0.8) 08/18/24 08:58 Baso # (Auto) 0.0 10^3/uL (0.0-0.1) 08/18/24 08:58 Nucleated RBC % (auto) 0 % 08/18/24 08:58 Nucleated RBCs # 0.0 /100WBC 08/18/24 08:58 PT 33.00 SECONDS (12.1-14.9) H 08/18/24 08:58 INR 3.03 (0.8-1.2) H 08/18/24 08:58 Sodium 141 mmol/L (136-145) 08/18/24 08:58 Potassium 3.9 mmol/L (3.5-5.1) 08/18/24 08:58 Chloride 103 mmol/L (98-107) 08/18/24 08:58 Carbon Dioxide 26 mmol/L (22-29) 08/18/24 08:58 Anion Gap 15.9 (5-19) 08/18/24 08:58 BUN 19 mg/dL (6-20) 08/18/24 08:58 Creatinine 0.7 mg/dL (0.5-0.9) 08/18/24 08:58 GFR Calculation 86.6 mL/min (90-130) L 08/18/24 08:58 Glucose 107 mg/dL (65-115) 08/18/24 08:58 Calculated Osmolality 295 mOsm/kg (285-295) 08/18/24 08:58 Calcium 9.4 mg/dL (8.5-10.5) 08/18/24 08:58 Total Bilirubin 0.2 mg/dL (0.15-1.2) 08/18/24 08:58 AST 39 U/L (0-32) H 08/18/24 08:58 ALT 47 U/L (0-33) H 08/18/24 08:58 Alkaline Phosphatase 93 U/L (35-105) 08/18/24 08:58 Troponin T Baseline 20 ng/L (0-10) H 08/18/24 08:58 Troponin T 120 Minute 20.21 ng/L (0-10) H 08/18/24 11:30 Delta Troponin T 0.21 ABS# (0-10) 08/18/24 11:30 Total Protein 8.0 g/dL (6.6-8.7) 08/18/24 08:58 Albumin 4.2 g/dL (3.5-5.2) 08/18/24 08:58 Globulin 3.8 g/dL (1.3-4.6) 08/18/24 08:58 Coronavirus (PCR) Negative (Negative) 08/18/24 09:49 Influenza A (PCR) Negative (Negative) 08/18/24 09:49 Influenza Type B (PCR) Negative (Negative) 08/18/24 09:49 RSV (PCR) Negative (Negative) 08/18/24 09:49 Other data: Lexiscan Stress Test performed on 08/05/2024 IMPRESSIONS Large area of moderate to severe ischemia noted in basal to distal and basal to mid inferolateral wall of the left ventricle suggestive of possible lesion in left circumflex. Medium sized area of moderate to severe ischemia noted in the distal LAD/apex of left ventricle. EKG segment will be documented separately. Conclusion: 1. Normal EKG response to Lexiscan infusion 2. No Lexiscan induced chest pain or cardiac arrhythmia. 3. Normal blood pressure and heart rate response. A&P Assessment and plan (1) Unstable angina: With increasing frequency of chest pain episodes as described at rest and with exertion. Baseline activity level is limited to transfers. Cardiac stress testing done on August 05 in the outpatient setting showed no Lexiscan induced symptoms or rhythm changes, normal blood pressure and heart rate response but myocardial perfusion scan showed large area of moderate to severe ischemia in the basal to distal and basal to mid inferior lateral wall of the left ventricle suggestive of possible lesion in the left circumflex. Also noted was a medium sized area of moderate to severe ischemia in the distal LAD and apex of the left ventricle. Has received aspirin. Is currently chest pain-free. (2) Chronic anticoagulation: On warfarin due to history of DVT and PE in 2004. Takes warfarin at bedtime so last dose was on 08/17/2024. Current INR is therapeutic at 3. 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 Current dressing management includes drawtex Lowry conductive wound dressing in the wound with gauze 4 x 4 covered with ABD pad and secured with 3M Medipore tape twice daily. Last debridement on August 12. White count is normal. Qualifiers: Encounter type: subsequent encounter Qualified Code(s): S31.000D - Unspecified open wound of lower back and pelvis without penetration into retroperitoneum, subsequent encounter (4) Chronic cystitis: Chronically on cefdinir for prophylaxis. Also continued taking vitamin C after stopping mirabrgron. No recent urinary symptoms. 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 Wheelchair dependent, able to use transfer aids, live alone with family support. On gabapentin and baclofen at bedtime. (6) SAVAGE on CPAP: With sleep (7) History of DVT (deep vein thrombosis): And pulmonary embolism in 2007, had IVC filter placed, on chronic warfarin. CTA of the chest today showed normal pulmonary arteries. (8) Lymphedema: Chronically on furosemide and potassium, has used lymphedema wraps in past, currently doing well, right leg always larger than left, known venous stasis changes (9) Depression: Chronically on venlafaxine, has trazodone for sleep. Qualifiers: Depression Type: other depression Qualified Code(s): F32.89 - Other specified depressive episodes (10) GERD (gastroesophageal reflux disease): Chronically on omeprazole. Qualifiers: Esophagitis presence: without esophagitis Qualified Code(s): K21.9 - Gastro-esophageal reflux disease without esophagitis (11) Suprapubic catheter: Not due for change currently. No change in urine output. (12) Colostomy in place: No recent change in ostomy output, daughter will bring in her bags. Takes docusate at bedtime. (13) BMI 50.0-59.9, adult: Not know to have associated OHS, but can get hypoxic with illness and has as needed oxygen at home, most recent need 06/2024 Plan Widened mediastinum on chest x-ray but CTA of the chest without evidence of dissection or aneurysm Elevated platelets, normal end of June at 320 Mild transaminase elevation and mild hepatomegaly likely related to fatty liver disease Respiratory viral panel checked and negative 08/18/2024 Inpatient admission Cardiology consultation for anticipated catheterization Hold warfarin, daily INR with bridging therapy as needed Aspirin, beta-blockade, nitrates monitoring blood pressures closely Continue serial cardiac enzymes and EKGs Telemetry monitoring Echocardiogram though may be limited windows due to body habitus Check lipid panel and A1c for risk stratification Wound care for sacral area, frequent turning Continue cefdinir prophylaxis and vitamin C Check UA Continue home baclofen and gabapentin Cpap with sleep Supplemental oxygen if needed Monitor lymphedema and stasis changes Continue home venlafaxine and trazodone Continue home omeprazole Routine chronic catheter management, will not be removed this stay, will change to bedside bag as needed Routine colostomy care VTE prophylaxis: on warfarin, therapeutic at admit, being held for planned procedure,with plan to restart after procedure, bridging as needed, lymphedema in lower extremities limits ability to effectively use SCDs GI Prophylaxis: PPI chronically Antibiotics: cefdinir chronically for prophylaxis Pending studies: UA, 6 hr troponin, am lipid panel and A1c Telemetry: ordered due to presenting complaint Mahajan: chronic suprapubic catherter present on admisison Line(s): peripheral IVs Disposition plan: Home with outpatient follow up to cardiology in addition to residence hall director anticpated. Already has appointments scheduled in September with [facility]. Code Status: Full Code Supportive care otherwise Findings, concerns and plans were discussed with patient and she was given an opportunity to ask questions. We discussed cardiac cardiac catheterization procedure, plan for cardiology consultation and medication management plan around anticoagulation. PDMP PDMP Reviewed: Last Reviewed 08/18/24 14:37 by Kaylie Clements MD Attestations Medical Necessity Statement*: Currently anticipated stay greater than 2 midnights in a patient presenting with unstable angina with a recent abnormal stress test suggesting multivessel disease. Additionally she is on chronic anticoagulation that we will have to be held before proceeding for more definitive cardiac testing. Case is complicated by chronic cystitis on suppressive antibiotic therapy and chronic sacral wound followed closely by wound care in addition to other comorbidities noted above. Management will need to be coordinated to optimize her overall care while determining future care needs as described. Coding Level of Care Code 55211 High MDM includes number and complexity of problems actively addressed during encounter, amount and/or complexity of data reviewed/ordered [ previous or external records, resulted lab(s)/test(s), ordered lab(s)/test(s) and other healthcare professional discussion (cardiology)] and described risk of complication, morbidity or mortality of management (discussion regarding plan of care for anticogulation, possible cardiac catheterization) as documented Diagnoses Unstable angina I20.0 Chronic anticoagulation Z79.01 Wound of sacral region, subsequent encounter S31.000D Encounter type: subsequent encounter Chronic cystitis N30.20 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 SAVAGE on CPAP G47.33 History of DVT (deep vein thrombosis) Z86.718 Lymphedema I89.0 Other depression F32.89 Depression Type: other depression Gastroesophageal reflux disease without esophagitis K21.9 Esophagitis presence: without esophagitis Suprapubic catheter Z93.[address] Z93.3 BMI 50.0-59.9, adult Z68.43
[2024-08-18 12:48] LABS: INR 3.03 (0.8-1.2)
--- NOTE | 2024-08-18 15:17 | USCV_ITS ---
Jami Gandhi Age: 54 Gender: F : 1970 Exam Date: 08/18/2024 16:11 Ordering Phys: Kaylie Clements MD Technologist: [place] [facility] [place]: ua BP: 143 / 84 HR: 60 Rhythm: Sinus Technical Quality: Technically difficult study MEASUREMENTS (Male / Female) Normal Values 2D ECHO LVOT Diameter 1.9 cm LV Ejection Fraction MOD 4C 57.1 % LV Ejection Fraction MOD 2C 53.4 % LV Ejection Fraction 2C AL 55.7 % LA Diameter 3.1 cm RA Systolic Volume 4C AL 29.9 ml RA Systolic Volume 4C MOD 29.4 ml LA Sys Volume AL 33.4 cm cubed LA Sys Volume Index AL 13.1 cm cubed/m squared Aorta at Sinotubular Diameter 2.3 cm M-MODE LA Ao Ratio MM 1.4 AV Cusp Separation MM 2.0 cm DOPPLER AV Peak Velocity 144.0 cm/s LVOT Peak Velocity 98.0 cm/s AV Area Cont Eq vti 2.2 cm squared AV Area Cont Eq pk 1.9 cm squared MV Peak Velocity 98.0 cm/s MV Area PHT 2.9 cm squared Mitral E to A Ratio 1.3 TR Peak Velocity 179.0 cm/s TR Peak Gradient 12.8 mmHg TV Peak E Velocity 79.0 cm/s PV Peak Velocity 98.0 cm/s FINDINGS Left Ventricle Normal left ventricular size and systolic function, EF 56%.mild left ventricular hypertrophy. Segmental wall motion analysis difficult because of poor ultrasonic window. No gross wall motion abnormalities noted. The inferolateral wall was not visualized well Right Ventricle The right ventricle is normal in size and function. Right Atrium The right atrium is normal in size. Left Atrium The left atrium is normal in size. Mitral Valve No gross abnormalities noted Aortic Valve No gross abnormalities noted Tricuspid Valve No gross abnormalities noted Pulmonic Valve Pulmonic valve not well visualized. Pericardium No pericardial effusion. Aorta Normal ascending aorta dimension. IVC The inferior vena cava appears normal. CONCLUSIONS Normal left ventricular size and systolic function, EF 56%.mild left ventricular hypertrophy. Segmental wall motion analysis difficult because of poor ultrasonic window. No gross wall motion abnormalities noted. The inferolateral wall was not visualized well. No gross valvular abnormalities. There is no pericardial effusion. Comparison with the previous study is difficult because of the difference in the technical quality. Dr Pipo Moser MD [facility] (Electronically Signed) Final Date: 20 August 2024 05:46 S
[2024-08-18 15:25] LABS: Troponin 5 6HR 20.39 ng/L (0-10); Troponin 5 6HR Delta 0.39 ng/L (0-12)
--- NOTE | 2024-08-18 15:30 | ECG_ITS ---
[employer] Test Date: 2024-08-18 Pat Name: Jami Gandhi Department: Room: [facility] Gender: Female Physician Office Clin Asst: : 1970 Requested By: Gerson Deutsch Order Number: [id number] Lynn MD: Pipo Moser M.D. Measurements Intervals [place] Rate: 63 P: 34 CO: 153 QRS: 7 QRSD: 104 T: 23 QT: 389 QTc: 398 Interpretive Statements SINUS RHYTHM LOW QRS VOLTAGE IN PRECORDIAL LEADS [QRS DEFLECTION < 1.0 mV IN CHEST LEADS] MODERATE VOLTAGE CRITERIA FOR LVH, CONSIDER NORMAL VARIANT [MEETS CRITERIA IN ONE OF: R(aVL), S(V1), R(V5), R(V5/V6)+S(V1)] Compared to ECG 08/18/2024 11:28:28 ST (T wave) deviation no longer present Electronically Signed On 08-19-2024 17:58:30 [employer] by Pipo Moser M.D. [email or web address]
[2024-08-18] MEDS: ascorbic acid 500 mg Tablet 1000 MG PO (18:28)
--- NOTE | 2024-08-18 18:34 | PC.NURSE ---
400ML OF URINE DRAINED FROM PT LEG BAG FROM SUPRAPUBIC CATHETER. THIS RN ASSESSED THE NEED FOR OSTOMY BAG TO BE CHANGED, PT DECLINED THE NEED FOR IT TO BE CHANGED.
--- OUTSIDE RECORDS SUMMARY | 2024-08-18 18:45 | XMS_ITS | Encounter Summary ---
Author Organization [facility] Address [address] [place] [address] Care Team Providers Care Lining Setter Name Role Phone Jose Bowers MD Primary Care Provider Unavailab le Encounter Details Date Type Department Care Team (Late st Contact Info) Description 10/01/2005 Outpatient Historical [facility] [place] [address] [place] [id number] Jose Bowers MD [address] [place] [address] Paraplegia (CMS/HCC) (Primary Dx); Neurogenic Bladder, NOS Social History Tobacco Use Types Packs/Day Years Used Date Smoking Tobacco: Never Assessed Comments Unknown Sex and Gender Information Value Date Recorded Sex Assigned at Not on file Legal Sex Female 6:28 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
--- OUTSIDE RECORDS SUMMARY | 2024-08-18 18:45 | XMS_ITS | Encounter Summary ---
[facility] Organization [facility] Address [address] [place] [address] Care Team Providers Care Pizza Delivery Driver Name Role Phone Jose Bowers MD Primary Care Provider Unavailab le Encounter Details Date Type Department Care Team (Late st Contact Info) Description 07/04/2004 Outpatient Historical HIS RAD [facility] ER Calvin Odonnell MD [address] [place] [address] [id number] Social History Tobacco Use Types Packs/Day Years Used Date Smoking Tobacco: Never Assessed Comments Unknown Sex and Gender Information Value Date Recorded Sex Assigned at Not on file 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
--- OUTSIDE RECORDS SUMMARY | 2024-08-18 18:45 | XMS_ITS | Clinical Summary ---
Author Organization [facility] Address [address] [facility] Attn: [place] [address] Care Team Providers Care Payroll Supervisor Name Role Phone Jose Bowers MD Primary Care Provider Unavailab le Allergies Active Allergy Reactions Criticality Noted Date Comments Penicillins Unknown Tramadol Unknown Medications ascorbic acid, vitamin C, (VITAMIN C) 500 mg tablet Take 500 mg by mouth daily. 6 Active spironolactone (ALDACTONE) 25 mg tablet Take 25 mg by mouth 2 times daily. 6 Active omeprazole (PriLOSEC) 20 mg Capsule, Delayed Release(E.C.) Take 20 mg by mouth daily. 6 Active bimatoprost (LUMIGAN) 0.01 % solution Administer 1 Drop in both eyes daily at bedtime. 6 Active warfarin (COUMADIN) 7.5 mg tablet Take 7.5 mg by mouth every Saturday, and Saturday. 6 Active methenamine hippurate (HIPREX) 1 gram Tablet Take 1 Gram by mouth 4 times daily With 500 mg of vitamin c . 6 Active docusate sodium (COLACE) 100 mg capsule Take 200 mg by mouth 2 times daily as needed for Constipation. 6 Active oxybutynin chloride (DITROPAN) 5 mg tablet Take 5 mg by mouth daily. 6 Active potassium chloride (KLOR-CON) 10 mEq Extended Release tablet Take 10 mEq by mouth 2 times daily with meals. 6 Active Active Problems Problem Noted Date Diagnosed Date SBO (small bowel obstruction) 10/26/2015 Morbid obesity due to excess calories 10/26/2015 Parastomal hernia with obstruction and without g angrene 10/26/2015 Obstructive sleep apnea syndrome 10/26/2015 H/O deep venous thrombosis 10/26/2015 Complete paraplegia 10/26/2015 MRSA colonization 10/26/2015 Sepsis, unspecified Aggressive periodontitis, localized Immunizations Immunization Administration Dates Next Due Influenza Seasonal Unspecified Formulation IM Social History Tobacco Use Types Packs/Day Years Used Date Smoking Tobacco: Never Assessed Comments Unknown Sex and Gender Information Value Date Recorded Sex Assigned at Not on file 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 Gender Identity Not on file Sexual Orientation Not on file Last Filed Vital Signs Vital Sign Reading Time Taken Comments Blood Pressure 125/70 10/28/2015 10:00 AM CDT Pulse 103 10/28/2015 10:00 AM CDT Temperature 36.4 ??C (97.6 ??F) 10/28/2015 1 0:00 AM CDT Respiratory Rate 18 10/28/2015 10:0 0 AM CDT Oxygen Saturation - - Inhaled Oxygen Concentration - - Weight 136.8 kg (301 lb 11.2 oz) 10/26/2015 9:51 AM CDT Height 160 cm (5' 3 ) 10/26/2015 9:51 AM CDT Body Mass Index 53.44 10/26/2015 9:51 AM CDT Plan of Treatment Health Maintenance Due Date Last Done Comments Pre-Diabetes and Diabetes Screening 1968 DTAP/TDAP/TD VACCINES (1 - Tdap) 1987 HEPATITIS B VACCINES (1 of 3 - 19+ 3-dose series) 1987 CERVICAL CANCER SCREENING 1998 BREAST CANCER SCREENING 2008 COLORECTAL SCREENING 2013 Colorectal Cancer Screening 2013 FIT-DNA Q 3 years 2013 FIT/FOBT Q 1 year 2013 Flex Sig/CT Colonography Q 5 years 2013 ZOSTER VACCINE (1 of 2) 2018 INFLUENZA VACCINE (#1) 2024 05/09/2008 PNEUMOCOCCAL VACCINE 0-64 YEARS Aged Out No longer eligible based on patient's age to complete this topic Additional Health Concerns Infection Onset Date Last Indicated MRSA Comment:Kapil 10/26/15 10/27/2015 10/27/2015 Insurance MEDICAID [place] Care Teams Payroll Supervisor Relationship Specialty Start Date End Date Jose Bowers MD [address] [place] [id number] PCP - General 12/31/05
--- OUTSIDE RECORDS SUMMARY | 2024-08-18 18:45 | XMS_ITS | Clinical Summary ---
Author Organization [facility] Address [address] [place] [address] Care Team Providers Care Director Of Pulmonary Unit Name Role Phone Jose Bowers MD Primary Care Provider Unavailab le Allergies Active Allergy Reactions Criticality Noted Date Comments Penicillins Unknown Tramadol Unknown Medications BACLOFEN 10 mg Oral Tab Take 1 Tab by mouth 3 times daily. Active LASIX 20 mg Oral Tab Take 40 mg by mouth 2 times daily . Active EFFEXOR XR 75 mg Oral Cp24 Take 1 Cap by mouth 2 times daily. Active PROTONIX 40 mg Oral TbEC Take 1 Tab by mouth daily. Active GABAPENTIN 600 mg Oral Tab Take 1 Tab by mouth daily. Active CIPRO 500 mg Oral Tab Take 1 Tab by mouth 2 times daily. Active FLUCONAZOLE 200 mg Oral Tab Take 2 Tabs by mouth daily. Active FLAGYL 500 mg Oral Tab Take 1 Tab by mouth 3 times daily. Active COUMADIN 2.5 mg Oral Tab Take 5 mg by mouth every Saturday, Saturday, and Saturday . Active LACTULOSE PO Take by mouth. As needed Active PHENERGAN 25 mg Oral Tab Take 1 Tab by mouth. As needed Active ALBUTEROL IN Take by inhalation. Active MILK OF MAGNESIA PO Take by mouth. As needed Active warfarin (COUMADIN) 7.5 mg tablet Take 7.5 mg by mouth every Saturday, and Saturday. Active spironolactone (ALDACTONE) 25 mg tablet Take 25 mg by mouth 2 times daily. Active oxybutynin chloride (DITROPAN) 5 mg tablet Take 5 mg by mouth daily. Active omeprazole (PRILOSEC) 20 mg Capsule, Delayed Release(E.C.) Take 20 mg by mouth daily. Active potassium chloride (KLOR-CON) 10 mEq Extended Release tablet Take 10 mEq by mouth 2 times daily with meals. Active methenamine hippurate (HIPREX) 1 gram Tablet Take 1 Gram by mouth 4 times daily With 500 mg of vitamin c . Active docusate sodium (COLACE) 100 mg capsule Take 200 mg by mouth 2 times daily as needed for Constipation. Active ascorbic acid (VITAMIN C) 500 mg tablet Take 500 mg by mouth daily. Active bimatoprost (LUMIGAN) 0.01 % solution Administer 1 Drop in both eyes daily at bedtime. Active Active Problems Problem Noted Date Diagnosed Date SBO (small bowel obstruction) 10/26/2015 Obstructive sleep apnea syndrome 10/26/2015 Morbid obesity due to excess calories 10/26/2015 H/O deep venous thrombosis 10/26/2015 Parastomal hernia with obstruction and without g angrene 10/26/2015 Complete paraplegia 10/26/2015 MRSA colonization 10/26/2015 Sepsis, unspecified Aggressive periodontitis, localized Immunizations Immunization Administration Dates Next Due Influenza Seasonal Unspecified Formulation IM Social History Tobacco Use Types Packs/Day Years Used Date Smoking Tobacco: Never Assessed Comments Unknown Sex and Gender Information Value Date Recorded Sex Assigned at Not on file 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 Gender Identity Not on file Sexual Orientation Not on file Last Filed Vital Signs Vital Sign Reading Time Taken Comments Blood Pressure 125/70 10/28/2015 10:00 AM CDT Pulse 103 10/28/2015 10:00 AM CDT Temperature 36.4 ??C (97.6 ??F) 10/28/2015 1 0:00 AM CDT Respiratory Rate 18 10/28/2015 10:0 0 AM CDT Oxygen Saturation 98% 10/28/2015 10: 00 AM CDT Inhaled Oxygen Concentration - - Weight 136.9 kg (301 lb 11.2 oz) 10/26/2015 9:51 [...] Indicated MRSA Comment:Kapil 10/26/15 10/27/2015 10/27/2015 Insurance MEDICARE PART A AND B MEDICAID [place] [employer] , [address] [address] Advance Directives For more information, please contact: [phone] * Full Code (Latest Code Status on File) Date Activated Date Inactivated Comments 10/26/2015 6:24 AM 10/28/2015 4:22 PM Care Teams Director Of Pulmonary Unit Relationship Specialty Start Date End Date Jose Bowers MD [address] [place] [id number] PCP - General 12/31/05
--- OUTSIDE RECORDS SUMMARY | 2024-08-18 18:45 | XMS_ITS | Encounter Summary ---
Author Organization [facility] Address [address] [place] [address] Care Team Providers Care Habitat Conservation Planner Name Role Phone Jose Bowers MD Primary Care Provider Unavailab le Encounter Details Date Type Department Care Team (Late st Contact Info) Description 02/14/[address] 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
--- OUTSIDE RECORDS SUMMARY | 2024-08-18 18:45 | XMS_ITS | Encounter Summary ---
Author Organization [facility] Address [address] [place] [address] Care Team Providers Care Legger Press Operator Name Role Phone Jose Bowers MD Primary Care Provider Unavail le Encounter Details Date Type Department Care Team (Late st Contact Info) Description 11/26/2005 Inpatient Historical HIS IN BED Jose Bowers MD [address] [place] [address] Other Specified Rehabilitation Procedure (Primary Dx) Social History Tobacco Use Types Packs/Day Years Used Date Smoking Tobacco: Never Assessed Comments Unknown Sex and Gender Information Value Date Recorded Sex Assigned at Not on file 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 Gender Identity Not on file Sexual Orientation Not on file documented as of this encounter Plan of Treatment Not on file documented as of this encounter Procedures Procedure Name Priority Date/Time Associated Diagnosis Comments CBC WITH DIFFERENTIAL Routine 11/27/2005 6:09 AM CDT SEDIMENTATION RATE Routine 11/27/2005 6: 09 AM CDT PROTIME-INR Routine 11/27/2005 6:09 AM CDT C-REACTIVE PROTEIN Routine 11/27/2005 6: 09 AM CDT TSH Routine 11/27/2005 6:09 AM CDT VITAMIN B12 LEVEL Routine 11/27/2005 6:0 9 AM CDT COMPREHENSIVE METABOLIC PANEL Routine 11/27/2005 6:09 AM CDT URINALYSIS MICROSCOPY ONLY Routine 11/27/2005 6:00 AM CDT URINALYSIS W/REFLEX MICROSCOPIC Routine 11/27/2005 6:00 AM CDT XR THORACIC SPINE 3 VW Routine 6 10:38 AM CDT documented in this encounter Results * VITAMIN B12 (11/27/2005 6:09 AM CDT) VITAMIN B12 514 211 - 911 pg/dL INTERFACE SYSTEM 11/27/2005 6:09 AM CDT Jose Bowers MD CHEMISTRY ORDERABLES Final Resul t Performing Organization Address [facility] Phone Number INTERFACE SYSTEM Refer to clinic/hospital department * TSH (11/27/2005 6:09 AM CDT) TSH 1.073 0.350 - 5.500 uIU/ml INTERFACE SYSTEM Comment: As of 04 at 3:[address] [facility] has changed the methodology for TSH, and with this change the reference range has changed from 0.49-4.67 to 0.35-5.5 uIU/ml. 11/27/2005 6:09 AM CDT Jose Bowers MD CHEMISTRY ORDERABLES Final Resul t Performing Organization Address [facility] Phone Number INTERFACE SYSTEM Refer to clinic/hospital department * (ABNORMAL) PROTIME-INR (11/27/2005 6:09 AM CDT) PROTIME 22.9(H) 12.6 - 14.9 Secs INTERFACE SYSTEM Comment: As of 05 note change in normal range. INR 2.0 INTERFACE SYSTEM Comment: Expected Values for INR: DVT/PE ?Goal INR 2.5; range 2.0 - 3.0 Valve Replacement ? Tissue ? Goal INR 2.5; range 2.0 - 3.0 ? Mechanical ? Goal INR 3.0; range 2.5 - 3.5 POST-RI ? Goal INR 2.5; range 2.0 - 3.0 or Goal 3.0; range 2.5 - 3.5 Atrial Fibrillation ? Goal INR 2.5; range 2.0 - 3.0 Ischemic Stroke ? Goal INR 2.5; range 2.0 - 3.0 For additional information see ?? Guidelines for Anticoagulation available from the pharmacy Jolene Ramirez Pharm D. ?? 11/27/2005 6:09 AM CDT Jose Bowers MD HEMATOLOGY ORDERABLES Final Resu lt Performing Organization Address [facility] Phone Number INTERFACE SYSTEM Refer to clinic/hospital department * (ABNORMAL) C-REACTIVE PROTEIN (11/27/2005 6:09 AM CDT) CRP 1.19(H) 0.00 - 1.00 mg/dL INTERFACE SYSTEM 11/27/2005 6:09 AM CDT Jose Bowers MD CHEMISTRY ORDERABLES Final Resul t Performing Organization Address [facility] Phone Number INTERFACE SYSTEM Refer to clinic/hospital department * (ABNORMAL) COMPREHENSIVE METABOLIC PANEL (11/27/2005 6:09 AM CDT) GLUCOSE 92 70 - 110 mg/dL INTERFACE SYSTEM BUN 17 7 - 17 mg/dL INTERFACE SYSTEM CREATININE 0.7 0.7 - 1.2 mg/dL INTERFACE SYSTEM SODIUM 137 136 - 145 mEq/L INTERFACE SYSTEM POTASSIUM 3.7 3.5 - 5.0 mEq/L INTERFACE SYSTEM CHLORIDE 102 95 - 110 mEq/L INTERFACE SYSTEM CO2 31 22 - 32 mmol/l INTERFACE SYSTEM ANION GAP 8(L) 9 - 20 mEq/L INTERFACE SYSTEM OSMOLALITY, CALCULATED 283 275 - 295 mOsm/Kg INTERFACE SYSTEM CALCIUM 9.0 8.4 - 10.5 mg/dL INTERFACE SYSTEM TOTAL PROTEIN 7.0 6.3 - 8.2 g/dL INTERFACE SYSTEM ALBUMIN 4.1 3.5 - 5.0 g/dL INTERFACE SYSTEM GLOBULIN (CALC) 2.9 2.4 - 3.9 g/dL INTERFACE SYSTEM ALBUMIN/GLOBULIN RATIO 1.4 1.0 - 2.3 INTERFACE SYSTEM ALKALINE PHOSPHATASE 92 25 - 100 U/L INTERFACE SYSTEM Comment: As of 05 the [facility] has changed testing methods. ?? The new reference range is 25-100 The old referance range was 38-126 AST 26 8 - 33 U/L INTERFACE SYSTEM Comment: As of 05 the [facility] has changed testing methods. ?? The new reference range is 8-33 The old referance range was Males 17-59 ?Females 14-36 ALT 27 4 - 36 IU/L INTERFACE SYSTEM Comment: As of 05 the [facility] has changed testing methods. ?? The new reference range is 4-36 The old referance range was Males 21-72 ? Females 9-52 BILIRUBIN TOTAL 0.2(L) 0.3 - 1.2 mg/dL INTERFACE SYSTEM Comment: As of 05 the [facility] has changed testing methods. ?? The new reference range is 0.3-1.2 The old referance range was 0.2-1.4 11/27/2005 6:09 AM CDT us Jose Bowers MD CHEMISTRY ORDERABLES Final Resul t INTERFACE SYSTEM Refer to clinic/hospital department * (ABNORMAL) SEDIMENTATION RATE (11/27/2005 6:09 AM CDT) ESR (SEDIMENTATION RATE) 25(H) 0 - 22 mm/hr INTERFACE SYSTEM 11/27/2005 6:09 AM CDT Jose Bowers MD HEMATOLOGY ORDERABLES Final Resu lt INTERFACE SYSTEM Refer to clinic/hospital department * (ABNORMAL) CBC WITH DIFFERENTIAL (11/27/2005 6:09 AM CDT) WBC 4.5 4.5 - 11.0 K/ul INTERFACE SYSTEM RBC 4.26 4.20 - 5.40 Mil/ul INTERFACE SYSTEM HEMOGLOBIN 13.0 12.0 - 16.0 g/dL INTERFACE SYSTEM HEMATOCRIT 38.9 36.0 - 46.0 % INTERFACE SYSTEM MCV 91.3 84.0 - 103.0 Fl INTERFACE SYSTEM MCH 30.5 27.0 - 34.0 pg INTERFACE SYSTEM MCHC 33.4 30.0 - 35.0 g/dL INTERFACE SYSTEM RDW 13.2 11.0 - 14.5 % INTERFACE SYSTEM PLATELETS 206 140 - 440 K/ul INTERFACE SYSTEM MPV 11.1 8.9 - 12.8 Fl INTERFACE SYSTEM NEUTROPHILS 53.6 42.2 - 75.2 % INTERFACE SYSTEM LYMPHOCYTES 28.2 24.0 - 44.0 % INTERFACE SYSTEM MONOCYTES 11.1(H) 2.0 - 10.0 % INTERFACE SYSTEM EOSINOPHILS 6.7 0.0 - 7.0 % INTERFACE SYSTEM BASOPHILS 0.4 0.0 - 1.0 % INTERFACE SYSTEM NEUTROPHIL ABSOLUTE 2.4 2.0 - 8.0 K/uL INTERFACE SYSTEM LYMPHOCYTE ABSOLUTE 1.3 1.2 - 4.0 K/ul INTERFACE SYSTEM MONOCYTE ABSOLUTE 0.5 0.1 - 0.6 K/ul INTERFACE SYSTEM EOSINOPHIL ABSOLUTE 0.3 0.0 - 0.7 K/ul INTERFACE SYSTEM BASOPHILS ABSOLUTE 0.0 0.0 - 0.2 K/ul INTERFACE SYSTEM 11/27/2005 6:09 AM CDT Jose Bowers MD HEMATOLOGY ORDERABLES Final Resu lt INTERFACE SYSTEM Refer to clinic/hospital department * (ABNORMAL) URINALYSIS MICROSCOPY ONLY (11/27/2005 6:00 AM CDT) WBC URINE >80(A) 0 - 2 INTERFACE SYSTEM RBC UA 11-15(A) 0 - 2 INTERFACE SYSTEM HYALINE CAST None Seen 0 - 2 INTERFA CE SYSTEM BACTERIA UA Many(A) None Seen INTERFAC E SYSTEM 11/27/2005 6:00 AM CDT Jose Bowers MD URINE ORDERABLES Final Result Performing Organization Address [facility] de Phone Number INTERFACE SYSTEM Refer to clinic/hospital department * (ABNORMAL) URINALYSIS (11/27/2005 6:00 AM CDT) COLOR UA Yellow Straw INTERFACE SYSTEM CLARITY UA Cloudy(A) Clear INTERFACE SYSTEM LEUKOCYTE ESTERASE UA MODERATE(A) NEGATIVE INTERFACE SYSTEM NITRITE UA POSITIVE(A) NEGATIVE INTERFA CE SYSTEM PH UA 6.0 5.0 - 9.0 INTERFACE SYSTEM PROTEIN UA NEGATIVE NEGATIVE INTERFACE SYSTEM Comment: As of 05 positive protein results obtained on routine urinalysis will not be confirmed by sulfosalicylic acid (SSA) precipitation. ??Current methodology for protein detection is highly sensitive for detection of albumin; therefore, confirmation is not necessary. GLUCOSE UA NEGATIVE NEGATIVE INTERFACE SYSTEM KETONES UA NEGATIVE NEGATIVE INTERFACE SYSTEM UROBILINOGEN UA 0.2 0.2 INTE RFACE SYSTEM BILIRUBIN UA NEGATIVE NEGATIVE INTERFA CE SYSTEM BLOOD UA MODERATE(A) NEGATIVE INTERFAC E SYSTEM SPECIFIC GRAVITY UA 1.020 1.005 - 1.030 INTERFACE SYSTEM MICRO EXAM Yes(A) No INTERFACE SYSTEM 11/27/2005 6:00 AM CDT Jose Bowers MD URINE ORDERABLES Final Result Performing Organization Address [facility] Phone Number INTERFACE SYSTEM Refer to clinic/hospital department * XR THORACIC SPINE 3 VW (11/26/2005 10:38 AM CDT) Anatomical Region Laterality Modality Spine Other 11/26/2005 10:3 8 AM CDT Narrative 11/26/2005 10:38 AM CDT THORACIC SPINE: REASON FOR EXAMINATION: T4 paraparesis. TECHNIQUE: Two films AP, two films lateral. FINDINGS: The bony structures show a marked kyphosis of the dorsothoracic spine. ??No collapsed or subluxed vertebral bodies are noted. No focal lytic or blastic changes are noted. ??The study is rotated in an off-axis. IMPRESSION: Limited study. Nonspecific findings present. [facility] D: 11-26-05 ??[id number] Dictated By: ??Marcus Eng M.D. Electronically Signed By: ??Marcus Eng M.D. Date Signed: 11/27/05 Procedure Note 05/27/2009 THORACIC SPINE: REASON FOR EXAMINATION: T4 paraparesis. TECHNIQUE: Two films AP, two films lateral. FINDINGS: The bony structures show a marked kyphosis of the dorsothoracic spine. Nocollapsed or subluxed vertebral bodies are noted. No focal lytic or blastic changes are noted.The study is rotated in an off-axis. IMPRESSION: Limited study. Nonspecific findings present. [facility] D: [id number] Dictated By: Marcus Eng M.D. Electronically Signed By: Marcus Eng M.D. Date Signed: 11/27/05 Jose Bowers MD DIAGNOSTIC IMAGING ORDERABLES Fi nal Result documented in this encounter Visit Diagnoses Diagnosis Other specified rehabilitation procedure(V57.89)- Primary Other specified rehabilitation procedure documented in this encounter Additional Health Concerns Infection Onset Date Last Indicated Resolved Time MRSA Comment:Kapil 10/26/15 10/27/2015 10/27/2015 documented as of this encounter Care Teams Legger Press Operator Relationship Specialty Start Date End Date Jose Bowers MD [address] [place] [address] PCP - General 12/31/05 documented as of this encounter
--- OUTSIDE RECORDS SUMMARY | 2024-08-18 18:45 | XMS_ITS | Encounter Summary ---
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 Gender Identity Not on file Sexual Orientation Not on file documented as of this encounter Plan of Treatment Not on file documented as of this encounter Procedures Procedure Name Priority Date/Time Associated Diagnosis Comments POC GLUCOSE Routine 04/28/2008 12:22 PM CDT POC GLUCOSE Routine 04/28/2008 6:07 AM CDT BASIC METABOLIC PANEL Routine 04/28/2008 5:15 AM CDT POC GLUCOSE Routine 04/27/2008 8:55 PM CDT POC GLUCOSE Routine 04/27/2008 4:38 PM CDT POC GLUCOSE Routine 04/27/2008 11:23 AM CDT POC GLUCOSE Routine 04/27/2008 6:38 AM CDT POC GLUCOSE Routine 04/26/2008 8:43 PM CDT POC GLUCOSE Routine 04/26/2008 4:53 PM CDT POC GLUCOSE Routine 04/26/2008 11:28 AM CDT POC GLUCOSE Routine 04/26/2008 5:36 AM CDT CBC WITH DIFFERENTIAL Routine 04/26/2008 4:02 AM CDT PROTIME-INR Routine 04/26/2008 4:02 AM CDT TRIGLYCERIDE Routine 04/26/2008 4:02 AM CDT TRANSFERRIN Routine 04/26/2008 4:02 AM CDT PREALBUMIN Routine 04/26/2008 4:02 AM CDT PHOSPHORUS Routine 04/26/2008 4:02 AM CDT MAGNESIUM LEVEL Routine 04/26/2008 4:02 AM CDT COMPREHENSIVE METABOLIC PANEL Routine 04/26/2008 4:02 AM CDT BASIC METABOLIC PANEL Routine 04/26/2008 4:02 AM CDT POC GLUCOSE Routine 04/25/2008 8:51 PM CDT POC GLUCOSE Routine 04/25/2008 5:10 PM CDT POC GLUCOSE Routine 04/25/2008 10:45 AM CDT POC GLUCOSE Routine 04/25/2008 6:00 AM CDT BASIC METABOLIC PANEL Routine 04/25/2008 3:28 AM CDT POC GLUCOSE Routine 04/24/2008 8:30 PM CDT POC GLUCOSE Routine 04/24/2008 5:10 PM CDT POC GLUCOSE Routine 04/24/2008 1:53 PM CDT POC GLUCOSE Routine 04/24/2008 11:40 AM CDT POC GLUCOSE Routine 04/24/2008 5:45 AM CDT CBC WITH DIFFERENTIAL Routine 04/24/2008 3:09 AM CDT BASIC METABOLIC PANEL Routine 04/24/2008 3:09 AM CDT POC GLUCOSE Routine 04/23/2008 8:56 PM CDT POC GLUCOSE Routine 04/23/2008 4:37 PM CDT POC GLUCOSE Routine 04/23/2008 11:23 AM CDT POC GLUCOSE Routine 04/23/2008 7:53 AM CDT BASIC METABOLIC PANEL Routine 04/23/2008 3:33 AM CDT POC GLUCOSE Routine 04/23/2008 3:22 AM CDT POC GLUCOSE Routine 04/22/2008 11:30 PM CDT POC GLUCOSE Routine 04/22/2008 7:54 PM CDT POC GLUCOSE Routine 04/22/2008 4:09 PM CDT POC GLUCOSE Routine 04/22/2008 11:36 AM CDT POC GLUCOSE Routine 04/22/2008 7:55 AM CDT BASIC METABOLIC PANEL Routine 04/22/2008 3:26 AM CDT POC GLUCOSE Routine 04/22/2008 3:17 AM CDT POC GLUCOSE Routine 04/21/2008 11:17 PM CDT POC GLUCOSE Routine 04/21/2008 7:59 PM CDT POC GLUCOSE Routine 04/21/2008 4:29 PM CDT POC GLUCOSE Routine 04/21/2008 1:17 PM CDT POTASSIUM LEVEL Routine 04/21/2008 7:33 AM CDT POC GLUCOSE Routine 04/21/2008 7:26 AM CDT POC GLUCOSE Routine 04/21/2008 2:58 AM CDT BASIC METABOLIC PANEL Routine 04/21/2008 2:00 AM CDT POC GLUCOSE Routine 04/20/2008 11:57 PM CDT BASIC METABOLIC PANEL Routine 04/20/2008 11:40 PM CDT POC GLUCOSE Routine 04/20/2008 7:17 PM CDT POTASSIUM LEVEL Routine 04/20/2008 4:09 PM CDT POC GLUCOSE Routine 04/20/2008 3:59 PM CDT POC GLUCOSE Routine 04/20/2008 12:02 PM CDT POC BLOOD GAS, LYTES AND H+H Stat 04/20/2008 10:06 AM CDT POTASSIUM LEVEL Routine 04/20/2008 7:15 AM CDT POC GLUCOSE Routine 04/20/2008 7:11 AM CDT POC BLOOD GAS, LYTES AND H+H Stat 04/20/2008 4:30 AM CDT DIFFERENTIAL, MANUAL Routine 04/20/2008 4:04 AM CDT PT AND APTT Routine 04/20/2008 4:04 AM CDT CBC WITH DIFFERENTIAL Routine 04/20/2008 4:04 AM CDT BASIC METABOLIC PANEL Routine 04/20/2008 4:04 AM CDT POC GLUCOSE Routine 04/20/2008 3:59 AM CDT POTASSIUM LEVEL Routine 04/19/2008 11:37 PM CDT POC GLUCOSE Routine 04/19/2008 11:30 PM CDT DIFFERENTIAL, MANUAL Routine 04/19/2008 8:35 PM CDT PT AND APTT Routine 04/19/2008 8:35 PM CDT CBC WITH DIFFERENTIAL Routine 04/19/2008 8:35 PM CDT POC GLUCOSE Routine 04/19/2008 8:31 PM CDT XR CHEST PA OR AP 1 VW Routine 8 5:19 PM CDT POC GLUCOSE Routine 04/19/2008 4:58 PM CDT POTASSIUM LEVEL Stat 04/19/2008 4:30 PM CDT POC GLUCOSE Routine 04/19/2008 12:04 PM CDT POC GLUCOSE Routine 04/19/2008 8:28 AM CDT XR CHEST PA OR AP 1 VW Routine 8 3:57 AM CDT DIFFERENTIAL, MANUAL Routine 04/19/2008 3:20 AM CDT CBC WITH DIFFERENTIAL Routine 04/19/2008 3:20 AM CDT COMPREHENSIVE METABOLIC PANEL Routine 04/19/2008 3:20 AM CDT POTASSIUM LEVEL Routine 04/18/2008 11:41 PM CDT POTASSIUM LEVEL Routine 04/18/2008 3:49 PM CDT POC GLUCOSE Routine 04/18/2008 7:29 AM CDT CBC WITH DIFFERENTIAL Routine 04/18/2008 3:29 AM CDT COMPREHENSIVE METABOLIC PANEL Routine 04/18/2008 3:29 AM CDT POTASSIUM LEVEL Routine 04/17/2008 6:15 PM CDT POC GLUCOSE Routine 04/17/2008 6:10 PM CDT POC GLUCOSE Routine 04/17/2008 8:18 AM CDT POC BLOOD GAS, LYTES AND H+H Stat 04/17/2008 5:31 AM CDT POC BLOOD GAS, LYTES AND H+H Stat 04/17/2008 4:22 AM CDT CBC WITH DIFFERENTIAL Routine 04/17/2008 2:07 AM CDT TRIGLYCERIDE Routine 04/17/2008 2:07 AM CDT PHOSPHORUS Routine 04/17/2008 2:07 AM CDT COMPREHENSIVE METABOLIC PANEL Routine 04/17/2008 2:07 AM CDT POC GLUCOSE Routine 04/16/2008 6:56 PM CDT POTASSIUM LEVEL Routine 04/16/2008 4:43 PM CDT POC BLOOD GAS, LYTES AND H+H Stat 04/16/2008 12:11 PM CDT POC GLUCOSE Routine 04/16/2008 7:40 AM CDT POC BLOOD GAS, LYTES AND H+H Stat 04/16/2008 5:16 AM CDT POC GLUCOSE Routine 04/16/2008 5:12 AM CDT XR CHEST PA OR AP 1 VW Routine 8 4:01 AM CDT CBC WITH DIFFERENTIAL Routine 04/16/2008 3:20 AM CDT COMPREHENSIVE METABOLIC PANEL Routine 04/16/2008 3:20 AM CDT POC GLUCOSE Routine 04/15/2008 6:36 PM CDT HEMOGLOBIN AND HEMATOCRIT Stat 04/15/2008 4:00 PM CDT PROTIME-INR Routine 04/15/2008 9:53 AM CDT TRIGLYCERIDE Routine 04/15/2008 9:53 AM CDT TRANSFERRIN Routine 04/15/2008 9:53 AM CDT PREALBUMIN Routine 04/15/2008 9:53 AM CDT PHOSPHORUS Routine 04/15/2008 9:53 AM CDT MAGNESIUM LEVEL Routine 04/15/2008 9:53 AM CDT VANCOMYCIN LEVEL TROUGH Routine 04/15/2008 9:53 AM CDT POC BLOOD GAS, LYTES AND H+H Stat 04/15/2008 4:13 AM CDT XR CHEST PA OR AP 1 VW Routine 8 4:08 AM CDT CBC WITH DIFFERENTIAL Routine 04/15/2008 3:17 AM CDT COMPREHENSIVE METABOLIC PANEL Routine 04/15/2008 3:17 AM CDT XR CHEST PA OR AP 1 VW Routine 8 6:35 AM CDT POC BLOOD GAS, LYTES AND H+H Stat 04/14/2008 3:23 AM CDT DIFFERENTIAL, MANUAL Routine 04/14/2008 1:37 AM CDT CBC WITH DIFFERENTIAL Routine 04/14/2008 1:37 AM CDT BASIC METABOLIC PANEL Routine 04/14/2008 1:37 AM CDT LACTIC ACID Routine 04/13/2008 9:12 PM CDT POC BLOOD GAS, LYTES AND H+H Stat 04/13/2008 8:41 PM CDT POC GLUCOSE Routine 04/13/2008 8:33 PM CDT CBC WITH DIFFERENTIAL Stat 04/13/2008 7:58 PM CDT BASIC METABOLIC PANEL Stat 04/13/2008 7:58 PM CDT XR CHEST PA OR AP 1 VW Routine 8 7:26 PM CDT POC BLOOD GAS, LYTES AND H+H Stat 04/13/2008 6:02 PM CDT LACTIC ACID Stat 04/13/2008 5:36 PM CDT ABORH TYPING Stat 04/13/2008 5:34 PM CDT TYPE AND CROSSMATCH Stat 04/13/2008 5 :34 PM CDT BLOOD BANK ANTIBODY SCREEN Stat 04/13/2008 5:34 PM CDT PT AND APTT Stat 04/13/2008 5:29 PM CDT CBC WITH DIFFERENTIAL Stat 04/13/2008 5:29 PM CDT BASIC METABOLIC PANEL Stat 04/13/2008 5:29 PM CDT POC BLOOD GAS, LYTES AND H+H Stat 04/13/2008 5:26 PM CDT MRSA CULTURE Routine 04/13/2008 4:30 PM CDT documented in this encounter Results * (ABNORMAL) POC GLUCOSE (04/28/2008 12:22 PM CDT) GLUCOSE POC 117(H) 60 - 100 mg/dL [facility] Venous blood specimen (specimen) 04/28/2008 12:22 PM CDT 04/29/2008 1:49 AM CDT us Riky Mejía MD POINT OF CARE TESTING Final Result Performing Organization Address [facility] de Phone Number INTERFACE SYSTEM Refer to clinic/hospital department [facility] CLIA# [id number] [address] [place] [address] * (ABNORMAL) POC GLUCOSE (04/28/2008 6:07 AM CDT) GLUCOSE POC 132(H) 60 - 100 mg/dL [facility] Venous blood specimen (specimen) 04/28/2008 6:07 AM CDT 04/29/2008 1:56 AM CDT us Riky Mejía MD POINT OF CARE TESTING Final Result Performing Organization Address [facility] Phone Number INTERFACE SYSTEM Refer to clinic/hospital department [facility] CLIA# [id number] [facility] [place] [address] * (ABNORMAL) BASIC METABOLIC PANEL (04/28/2008 5:15 AM CDT) ANION GAP 10 9 - 20 mEq/L [facility] SODIUM 137 136 - 145 mEq/L [facility] BUN 13 7 - 17 mg/dL [facility] CO2 30 22 - 32 mmol/l [facility] POTASSIUM 4.5 3.5 - 5.0 mEq/L [facility] Comment: Specimen slightly hemolyzed OSMOLALITY, CALCULATED 284 275 - 295 mOsm/Kg [facility] CREATININE 0.6(L) 0.7 - 1.2 mg/dL [facility] CALCIUM 9.0 8.4 - 10.5 mg/dL [facility] GLUCOSE 112(H) 70 - 110 mg/dL [facility] CHLORIDE 102 95 - 110 mEq/L [facility] Blood specimen (specimen) 04/28/2008 5:15 AM CDT 04/28/2008 5:29 AM CDT us Riky Mejía MD CHEMISTRY ORDERABLES Final Result Performing Organization Address [facility] de Phone Number INTERFACE SYSTEM Refer to clinic/hospital department [facility] CLIA# [id number] [address] [place] [address] * (ABNORMAL) POC GLUCOSE (04/27/2008 8:55 PM CDT) GLUCOSE POC 133(H) 60 - 100 mg/dL [facility] Venous blood specimen (specimen) 04/27/2008 8:55 PM CDT 04/28/2008 2:27 AM CDT us Riky Mejía MD POINT OF CARE TESTING Final Result Performing Organization Address [facility] Phone Number INTERFACE SYSTEM Refer to clinic/[facility] department [facility] CLIA# [id number] [facility] [place] [address] * (ABNORMAL) POC GLUCOSE (04/27/2008 4:38 PM CDT) GLUCOSE POC 112(H) 60 - 100 mg/dL [facility] COMMENT POC Follow Protocol [facility] Venous blood specimen (specimen) 04/27/2008 4:38 PM CDT 04/28/2008 12:35 AM CDT Riky Mejía MD POINT OF CARE TESTING Final Result Performing Organization Address [facility] de Phone Number INTERFACE SYSTEM Refer to clinic/hospital department [facility] CLIA# [id number] [address] [place] [address] * (ABNORMAL) POC GLUCOSE (04/27/2008 11:23 AM CDT) GLUCOSE POC 143(H) 60 - 100 mg/dL [facility] Venous blood specimen (specimen) 04/27/2008 11:23 AM CDT 04/28/2008 2:23 AM CDT Riky Mejía MD POINT OF CARE TESTING Final Result Performing Organization Address [facility] de Phone Number INTERFACE SYSTEM Refer to clinic/hospital department [facility] CLIA# [id number] [address] [place] [address] * (ABNORMAL) POC GLUCOSE (04/27/2008 6:38 AM CDT) GLUCOSE POC 122(H) 60 - 100 mg/dL [facility] Venous blood specimen (specimen) 04/27/2008 6:38 AM CDT 04/28/2008 2:33 AM CDT Riky Mejía MD POINT OF CARE TESTING Final Result Performing Organization Address [facility] de Phone Number INTERFACE SYSTEM Refer to clinic/[facility] CLIA# [id number] [address] [place] [address] * (ABNORMAL) POC GLUCOSE (04/26/2008 8:43 PM CDT) GLUCOSE POC 128(H) 60 - 100 mg/dL [facility] Venous blood specimen (specimen) 04/26/2008 8:43 PM CDT 04/27/2008 2:25 AM CDT Riky Mejía MD POINT OF CARE TESTING Final Result Performing Organization Address [facility] de Phone Number INTERFACE SYSTEM Refer to clinic/hospital department [facility] CLIA# [id number] [address] [place] [address] * (ABNORMAL) POC GLUCOSE (04/26/2008 4:53 PM CDT) GLUCOSE POC 113(H) 60 - 100 mg/dL [facility] Venous blood specimen (specimen) 04/26/2008 4:53 PM CDT 04/27/2008 2:26 AM CDT Riky Mejía MD POINT OF CARE TESTING Final Result Performing Organization Address [facility] Phone Number INTERFACE SYSTEM Refer to clinic/hospital department [facility] CLIA# [id number] [address] [place] [address] * (ABNORMAL) POC GLUCOSE (04/26/2008 11:28 AM CDT) GLUCOSE POC 125(H) 60 - 100 mg/dL [facility] Venous blood specimen (specimen) 04/26/2008 11:28 AM CDT 04/27/2008 2:25 AM CDT Riky Mejía MD POINT OF CARE TESTING Final Result Performing Organization Address [facility] de Phone Number INTERFACE SYSTEM Refer to clinic/hospital department [facility] CLIA# [id number] [address] [place] [address] * (ABNORMAL) POC GLUCOSE (04/26/2008 5:36 AM CDT) GLUCOSE POC 123(H) 60 - 100 mg/dL [facility] Venous blood specimen (specimen) 04/26/2008 5:36 AM CDT 04/27/2008 2:25 AM CDT Riky Mejía MD POINT OF CARE TESTING Final Result Performing Organization Address [facility] Phone Number INTERFACE SYSTEM Refer to clinic/hospital department [facility] CLIA# [id number] [address] [place] [address] * (ABNORMAL) TRANSFERRIN (04/26/2008 4:02 AM CDT) TRANSFERRIN 121.0(L) 204.0 - 376.0 mg/dL [facility] Blood specimen (specimen) 04/26/2008 4:02 AM CDT 04/26/2008 4:19 AM CDT Riky Mejía MD CHEMISTRY ORDERABLES Final Result Performing Organization Address [facility] Phone Number INTERFACE SYSTEM Refer to clinic/hospital department [facility] CLIA# [id number] [address] [place] [address] * PREALBUMIN (04/26/2008 4:02 AM CDT) PREALBUMIN 22.2 14.0 - 32.0 mg/dL [facility] Blood specimen (specimen) 04/26/2008 4:02 AM CDT 04/26/2008 4:19 AM CDT Riky Mejía MD CHEMISTRY ORDERABLES Final Result Performing Organization Address [facility] Phone Number INTERFACE SYSTEM Refer to clinic/[facility] CLIA# [id number] [address] [place] [address] * (ABNORMAL) PROTIME-INR (04/26/2008 4:02 AM CDT) PROTIME 16.1(H) 12.8 - 15.8 Secs [facility] Comment:As of 2007 not e change in normal range. INR 1.2 [facility] Comment: Expected Values for INR: DVT/PE ?Goal INR 2.5; range 2.0 - 3.0 Valve Replacement ? Tissue ? Goal INR 2.5; range 2.0 - 3.0 ? Mechanical ?Goal INR 3.0; range 2.5 - 3.5 POST-AK ?Goal INR 2.5; range 2.0 - 3.0 ??or Goal 3.0; range 2.5 - 3.5 Atrial Fibrillation ?Goal INR 2.5; range 2.0 - 3.0 Ischemic Stroke ?Goal INR 2.5; range 2.0 - 3.0 For additional information see Guidelines for Anticoagulation available from the pharmacy [facility] ??[phone] Blood specimen (specimen) 04/26/2008 4:02 AM CDT 04/26/2008 4:19 AM CDT Riky Mejía MD HEMATOLOGY ORDERABLES Final Result INTERFACE SYSTEM Refer to clinic/hospital department [facility] CLIA# [id number] [address] [place] [address] * (ABNORMAL) CBC WITH DIFFERENTIAL (04/26/2008 4:02 AM CDT) BASOPHILS ABSOLUTE 0.1 0.0 - 0.2 K/ul [facility] HEMOGLOBIN 10.3(L) 12.0 - 16.0 g/dL [facility] MONOCYTES 11.6(H) 2.0 - 10.0 % [facility] RDW 18.2(H) 11.0 - 14.5 % [facility] MONOCYTE ABSOLUTE 0.9(H) 0.1 - 0.6 K/ul [facility] WBC 8.1 4.5 - 11.0 K/ul [facility] NEUTROPHILS 67.2 42.2 - 75.2 % [facility] MCH 29.3 27.0 - 34.0 pg [facility] NEUTROPHIL ABSOLUTE 5.5 2.0 - 8.0 K/ul [facility] HEMATOCRIT 33.7(L) 36.0 - 46.0 % [facility] PLATELETS 436 140 - 440 K/ul [facility] EOSINOPHIL ABSOLUTE 0.3 0.0 - 0.7 K/ul [facility] EOSINOPHILS 4.0 0.0 - 7.0 % [facility] PERIPHERAL BLOOD SMEAR REVIEW Automated Diff [facility] RBC 3.51(L) 4.20 - 5.40 Mil/ul [facility] MCHC 30.6 30.0 - 35.0 g/dL [facility] LYMPHOCYTE ABSOLUTE 1.3 1.2 - 4.0 K/ul [facility] LYMPHOCYTES 16.2(L) 24.0 - 44.0 % [facility] MCV 96.0 84.0 - 103.0 Fl [facility] BASOPHILS 1.0 0.0 - 1.0 % [facility] MPV 10.3 8.9 - 12.8 Fl [facility] Blood specimen (specimen) 04/26/2008 4:02 AM CDT 04/26/2008 4:19 AM CDT Narrative INTERFACE SYSTEM - 04/26/2008 4:35 AM CDT cbc with diff in am us Riky Mejía MD HEMATOLOGY ORDERABLES Final Result INTERFACE SYSTEM Refer to clinic/hospital department [facility] CLIA# [id number] [address] [place], [place] [id number] * MAGNESIUM LEVEL (04/26/2008 4:02 AM CDT) MAGNESIUM 2.0 1.7 - 2.4 mg/dL [facility] Blood specimen (specimen) 04/26/2008 4:02 AM CDT 04/26/2008 4:19 AM CDT us Riky Mejía MD CHEMISTRY ORDERABLES Final Result Performing Organization Address [facility] Phone Number INTERFACE SYSTEM Refer to clinic/hospital department [facility] CLIA# [id number] [address] [place] [address] * TRIGLYCERIDE (04/26/2008 4:02 AM CDT) TRIGLYCERIDE 137 0 - 150 mg/dL [facility] Comment: On 11/10/2007, [facility] changed the triglyceride reference range to 0-150 mg/dl. ??This is the recommendation of the National Cholesterol Education Program (NCEP-ATPIII). Blood specimen (specimen) 04/26/2008 4:02 AM CDT 04/26/2008 4:19 AM CDT us Riky Mejía MD CHEMISTRY ORDERABLES Final Result Performing Organization Address [facility] Phone Number INTERFACE SYSTEM Refer to clinic/hospital department [facility] CLIA# [id number] [address] [place] [address] * PHOSPHORUS (04/26/2008 4:02 AM CDT) PHOSPHORUS 4.1 2.5 - 4.6 mg/dL [facility] Blood specimen (specimen) 04/26/2008 4:02 AM CDT 04/26/2008 4:19 AM CDT us Riky Mejía MD CHEMISTRY ORDERABLES Final Result Performing Organization Address [facility]/ZIP Co de Phone Number INTERFACE SYSTEM Refer to clinic/hospital department [facility] CLIA# [id number] [facility] [place] [address] * (ABNORMAL) COMPREHENSIVE METABOLIC PANEL (04/26/2008 4:02 AM CDT) OSMOLALITY, CALCULATED 284 275 - 295 mOsm/Kg [facility] GLOBULIN (CALC) 3.4 2.4 - 3.9 g/dL [facility] TOTAL PROTEIN 6.6 6.3 - 8.2 g/dL [facility] SODIUM 137 136 - 145 mEq/L [facility] BILIRUBIN TOTAL 0.8 0.3 - 1.2 mg/dL [facility] CO2 33(H) 22 - 32 mmol/l [facility] BUN 15 7 - 17 mg/dL [facility] AST 29 8 - 33 U/L [facility] ALBUMIN/GLOBULIN RATIO 0.9(L) 1.0 - 2.3 [facility] POTASSIUM 3.9 3.5 - 5.0 mEq/L [facility] ANION GAP 7(L) 9 - 20 mEq/L [facility] ALBUMIN 3.2(L) 3.5 - 5.0 g/dL [facility] CREATININE 0.6(L) 0.7 - 1.2 mg/dL [facility] ALT 27 4 - 36 IU/L [facility] CALCIUM 8.7 8.4 - 10.5 mg/dL [facility] GLUCOSE 110 70 - 110 mg/dL [facility] ALKALINE PHOSPHATASE 105(H) 25 - 100 U/L [facility] CHLORIDE 101 95 - 110 mEq/L [facility] Blood specimen (specimen) 04/26/2008 4:02 AM CDT 04/26/2008 4:19 AM CDT us Riky Mejía MD CHEMISTRY ORDERABLES Final Result INTERFACE SYSTEM Refer to clinic/hospital department [facility] CLIA# [id number] [address] [place] [address] * (ABNORMAL) BASIC METABOLIC PANEL (04/26/2008 4:02 AM CDT) GLUCOSE 110 70 - 110 mg/dL [facility] CHLORIDE 100 95 - 110 mEq/L [facility] ANION GAP 9 9 - 20 mEq/L [facility] SODIUM 137 136 - 145 mEq/L [facility] BUN 16 7 - 17 mg/dL [facility] CO2 32 22 - 32 mmol/l [facility] POTASSIUM 4.3 3.5 - 5.0 mEq/L [facility] OSMOLALITY, CALCULATED 285 275 - 295 mOsm/Kg [facility] CREATININE 0.5(L) 0.7 - 1.2 mg/dL [facility] CALCIUM 8.8 8.4 - 10.5 mg/dL [facility] Blood specimen (specimen) 04/26/2008 4:02 AM CDT 04/26/2008 4:19 AM CDT us Riky Mejía MD CHEMISTRY ORDERABLES Final Result Performing Organization Address City/[facility] de Phone Number INTERFACE SYSTEM Refer to clinic/hospital department [facility] CLIA# [id number] [address] [place] [address] * (ABNORMAL) POC GLUCOSE (04/25/2008 8:51 PM CDT) GLUCOSE POC 107(H) 60 - 100 mg/dL [facility] Venous blood specimen (specimen) 04/25/2008 8:51 PM CDT 04/26/2008 1:42 AM CDT us Riky Mejía MD POINT OF CARE TESTING Final Result Performing Organization Address City/[facility] Co de Phone Number INTERFACE SYSTEM Refer to clinic/hospital department [facility] CLIA# [id number] [address] [place] [address] * (ABNORMAL) POC GLUCOSE (04/25/2008 5:10 PM CDT) GLUCOSE POC 102(H) 60 - 100 mg/dL [facility] Venous blood specimen (specimen) 04/25/2008 5:10 PM CDT 04/26/2008 1:42 AM CDT Riky Mejía MD POINT OF CARE TESTING Final Result Performing Organization Address [facility] de Phone Number INTERFACE SYSTEM Refer to clinic/hospital department [facility] CLIA# [id number] [address] [place] [address] * (ABNORMAL) POC GLUCOSE (04/25/2008 10:45 AM CDT) GLUCOSE POC 114(H) 60 - 100 mg/dL [facility] Venous blood specimen (specimen) 04/25/2008 10:45 AM CDT 04/26/2008 1:42 AM CDT Riky Mejía MD POINT OF CARE TESTING Final Result Performing Organization Address [facility] de Phone Number INTERFACE SYSTEM Refer to clinic/hospital department [facility] CLIA# [id number] [address] [place] [address] * (ABNORMAL) POC GLUCOSE (04/25/2008 6:00 AM CDT) GLUCOSE POC 113(H) 60 - 100 mg/dL [facility] Venous blood specimen (specimen) 04/25/2008 6:00 AM CDT 04/26/2008 1:45 AM CDT Riky Mejía MD POINT OF CARE TESTING Final Result Performing Organization Address [facility] Co de Phone Number INTERFACE SYSTEM Refer to clinic/hospital department [facility] CLIA# [id number] [address] [place] [address] * (ABNORMAL) BASIC METABOLIC PANEL (04/25/2008 3:28 AM CDT) [facility] OSMOLALITY, CALCULATED [phone] - 295 mOsm/Kg [facility] CREATININE 0.5(L) 0.7 - 1.2 mg/dL [facility] CALCIUM 8.9 8.4 - 10.5 mg/dL [facility] GLUCOSE 115(H) 70 - 110 mg/dL [facility] CHLORIDE 101 95 - 110 mEq/L [facility] SODIUM 136 136 - 145 mEq/L [facility] ANION GAP 10 9 - 20 mEq/L [facility] BUN 20(H) 7 - 17 mg/dL [facility] CO2 30 22 - 32 mmol/l [facility] POTASSIUM 4.9 3.5 - 5.0 mEq/L [facility] Blood specimen (specimen) 04/25/2008 3:28 AM CDT 04/25/2008 3:31 AM CDT us Riky Mejía MD CHEMISTRY ORDERABLES Final Result Performing Organization Address [facility] Co de Phone Number INTERFACE SYSTEM Refer to clinic/hospital department [facility] CLIA# [id number] [facility] [place] [address] * (ABNORMAL) POC GLUCOSE (04/24/2008 8:30 PM CDT) [facility] GLUCOSE POC 121(H) 60 - 100 mg/dL [facility] Venous blood specimen (specimen) 04/24/2008 8:30 PM CDT 04/25/2008 1:43 AM CDT us Riky Mejía MD POINT OF CARE TESTING Final Result Performing Organization Address City/[facility] Co de Phone Number INTERFACE SYSTEM Refer to clinic/hospital department [facility] CLIA# [id number] [address] [place] [address] * (ABNORMAL) POC GLUCOSE (04/24/2008 5:10 PM CDT) GLUCOSE POC 109(H) 60 - 100 mg/dL [facility] Venous blood specimen (specimen) 04/24/2008 5:10 PM CDT 04/25/2008 1:43 AM CDT Riky Mejía MD POINT OF CARE TESTING Final Result Performing Organization Address [facility] de Phone Number INTERFACE SYSTEM Refer to clinic/hospital department [facility] CLIA# [id number] [address] [place] [address] * (ABNORMAL) POC GLUCOSE (04/24/2008 1:53 PM CDT) GLUCOSE POC 113(H) 60 - 100 mg/dL [facility] Venous blood specimen (specimen) 04/24/2008 1:53 PM CDT 04/25/2008 1:50 AM CDT Riky Mejía MD POINT OF CARE TESTING Final Result Performing Organization Address [facility] de Phone Number INTERFACE SYSTEM Refer to clinic/hospital department [facility] CLIA# [id number] [address] [place] [address] * (ABNORMAL) POC GLUCOSE (04/24/2008 11:40 AM CDT) GLUCOSE POC 160(H) 60 - 100 mg/dL [facility] Venous blood specimen (specimen) 04/24/2008 11:40 AM CDT 04/25/2008 1:50 AM CDT Riky Mejía MD POINT OF CARE TESTING Final Result Performing Organization Address City/[facility] Co de Phone Number INTERFACE SYSTEM Refer to clinic/hospital department [facility] CLIA# [id number] [address] [place] [address] * (ABNORMAL) POC GLUCOSE (04/24/2008 5:45 AM CDT) [facility] GLUCOSE POC 129(H) 60 - 100 mg/dL [facility] Venous blood specimen (specimen) 04/24/2008 5:45 AM CDT 04/25/2008 1:46 AM CDT Riky Mejía MD POINT OF CARE TESTING Final Result INTERFACE SYSTEM Refer to clinic/hospital department [facility] CLIA# [id number] [address] [place] [address] * (ABNORMAL) CBC WITH DIFFERENTIAL (04/24/2008 3:09 AM CDT) [facility] WBC 10.5 4.5 - 11.0 K/ul [facility] MCH 29.4 27.0 - 34.0 pg [facility] NEUTROPHIL ABSOLUTE 7.1 2.0 - 8.0 K/ul [facility] NEUTROPHILS 67.1 42.2 - 75.2 % [facility] HEMATOCRIT 32.8(L) 36.0 - 46.0 % [facility] EOSINOPHILS 4.3 0.0 - 7.0 % [facility] PLATELETS 491(H) 140 - 440 K/ul [facility] PERIPHERAL BLOOD SMEAR REVIEW Automated Diff [facility] EOSINOPHIL ABSOLUTE 0.5 0.0 - 0.7 K/ul [facility] RBC 3.44(L) 4.20 - 5.40 Mil/ul [facility] LYMPHOCYTES 17.3(L) 24.0 - 44.0 % [facility] MCHC 30.8 30.0 - 35.0 g/dL [facility] LYMPHOCYTE ABSOLUTE 1.8 1.2 - 4.0 K/ul [facility] MCV 95.3 84.0 - 103.0 Fl [facility] MPV 10.4 8.9 - 12.8 Fl [facility] BASOPHILS ABSOLUTE 0.1 0.0 - 0.2 K/ul [facility] BASOPHILS 1.3(H) 0.0 - 1.0 % [facility] HEMOGLOBIN 10.1(L) 12.0 - 16.0 g/dL [facility] RDW 17.8(H) 11.0 - 14.5 % [facility] MONOCYTE ABSOLUTE 1.1(H) 0.1 - 0.6 K/ul [facility] MONOCYTES 10.0 2.0 - 10.0 % [facility] Blood specimen (specimen) 04/24/2008 3:09 AM CDT 04/24/2008 3:21 AM CDT us Riky Mejía MD HEMATOLOGY ORDERABLES Final Result Performing Organization Address City/State/[facility] Co de Phone Number INTERFACE SYSTEM Refer to clinic/hospital department [facility] CLIA# [id number] [address] [place] [address] * (ABNORMAL) BASIC METABOLIC PANEL (04/24/2008 3:09 AM CDT) BUN 20(H) 7 - 17 mg/dL [facility] CO2 31 22 - 32 mmol/l [facility] POTASSIUM 4.6 3.5 - 5.0 mEq/L [facility] OSMOLALITY, CALCULATED 286 275 - 295 mOsm/Kg [facility] CREATININE 0.5(L) 0.7 - 1.2 mg/dL [facility] CALCIUM 8.8 8.4 - 10.5 mg/dL [facility] GLUCOSE 106 70 - 110 mg/dL [facility] CHLORIDE 100 95 - 110 mEq/L [facility] ANION GAP 11 9 - 20 mEq/L [facility] SODIUM 137 136 - 145 mEq/L [facility] Blood specimen (specimen) 04/24/2008 3:09 AM CDT 04/24/2008 3:21 AM CDT us Riky Mejía MD CHEMISTRY ORDERABLES Final Result Performing Organization Address [facility] de Phone Number INTERFACE SYSTEM Refer to clinic/[facility] department [facility] CLIA# [id number] [address] [place] [address] * (ABNORMAL) POC GLUCOSE (04/23/2008 8:56 PM CDT) GLUCOSE POC 132(H) 60 - 100 mg/dL [facility] Venous blood specimen (specimen) 04/23/2008 8:56 PM CDT 04/24/2008 1:58 AM CDT us Riky Mejía MD POINT OF CARE TESTING Final Result Performing Organization Address [facility] de Phone Number INTERFACE SYSTEM Refer to clinic/hospital department [facility] CLIA# [id number] [address] [place] [address] * (ABNORMAL) POC GLUCOSE (04/23/2008 4:37 PM CDT) GLUCOSE POC 129(H) 60 - 100 mg/dL [facility] Venous blood specimen (specimen) 04/23/2008 4:37 PM CDT 04/24/2008 1:58 AM CDT us Riky Mejía MD POINT OF CARE TESTING Final Result Performing Organization Address [facility] de Phone Number INTERFACE SYSTEM Refer to clinic/[facility] CLIA# [id number] [address] [place] [address] * (ABNORMAL) POC GLUCOSE (04/23/2008 11:23 AM CDT) GLUCOSE POC 147(H) 60 - 100 mg/dL [facility] Venous blood specimen (specimen) 04/23/2008 11:23 AM CDT 04/24/2008 7:04 AM CDT Riky Mejía MD POINT OF CARE TESTING Final Result Performing Organization Address [facility] de Phone Number INTERFACE SYSTEM Refer to clinic/hospital department [facility] CLIA# [id number] [address] [place] [address] * (ABNORMAL) POC GLUCOSE (04/23/2008 7:53 AM CDT) GLUCOSE POC 160(H) 60 - 100 mg/dL [facility] Venous blood specimen (specimen) 04/23/2008 7:53 AM CDT 04/24/2008 7:05 AM CDT us Riky Mejía MD POINT OF CARE TESTING Final Result Performing Organization Address [facility] Phone Number INTERFACE SYSTEM Refer to clinic/hospital department [facility] CLIA# [id number] [facility] [place] [address] * (ABNORMAL) BASIC METABOLIC PANEL (04/23/2008 3:33 AM CDT) BUN 18(H) 7 - 17 mg/dL [facility] CO2 30 22 - 32 mmol/l [facility] POTASSIUM 4.2 3.5 - 5.0 mEq/L [facility] OSMOLALITY, CALCULATED 283 275 - 295 mOsm/Kg [facility] CREATININE 0.4(L) 0.7 - 1.2 mg/dL [facility] CALCIUM 8.4 8.4 - 10.5 mg/dL [facility] GLUCOSE 131(H) 70 - 110 mg/dL [facility] CHLORIDE 104 95 - 110 mEq/L [facility] ANION GAP 5(L) 9 - 20 mEq/L [facility] SODIUM 135(L) 136 - 145 mEq/L [facility] Blood specimen (specimen) 04/23/2008 3:33 AM CDT 04/23/2008 3:39 AM CDT Riky Mejía MD CHEMISTRY ORDERABLES Final Result Performing Organization Address [facility] de Phone Number INTERFACE SYSTEM [facility] CLIA# [id number] [address] [place] [address] * (ABNORMAL) POC GLUCOSE (04/23/2008 3:22 AM CDT) GLUCOSE POC 130(H) 60 - 100 mg/dL [facility] Venous blood specimen (specimen) 04/23/2008 3:22 AM CDT 04/24/2008 7:07 AM CDT us Riky Mejía MD POINT OF CARE TESTING Final Result Performing Organization Address [facility] de Phone Number INTERFACE SYSTEM Refer to clinic/hospital department [facility] CLIA# [id number] [address] [place] [address] * (ABNORMAL) POC GLUCOSE (04/22/2008 11:30 PM CDT) GLUCOSE POC 155(H) 60 - 100 mg/dL [facility] Venous blood specimen (specimen) 04/22/2008 11:30 PM CDT 04/23/2008 7:12 AM CDT us Riky Mejía MD POINT OF CARE TESTING Final Result Performing Organization Address [facility] de Phone Number INTERFACE SYSTEM Refer to clinic/[facility] CLIA# [id number] [address] [place] [address] * (ABNORMAL) POC GLUCOSE (04/22/2008 7:54 PM CDT) GLUCOSE POC 158(H) 60 - 100 mg/dL [facility] Venous blood specimen (specimen) 04/22/2008 7:54 PM CDT 04/23/2008 3:46 PM CDT Riky Mejía MD POINT OF CARE TESTING Final Result Performing Organization Address [facility] de Phone Number INTERFACE SYSTEM Refer to clinic/hospital department [facility] CLIA# [id number] [address] [place] [address] * (ABNORMAL) POC GLUCOSE (04/22/2008 4:09 PM CDT) GLUCOSE POC 129(H) 60 - 100 mg/dL [facility] Venous blood specimen (specimen) 04/22/2008 4:09 PM CDT 04/23/2008 3:46 PM CDT us Riky Mejía MD POINT OF CARE TESTING Final Result Performing Organization Address [facility] de Phone Number INTERFACE SYSTEM Refer to clinic/hospital department [facility] CLIA# [id number] [address] [place] [address] * (ABNORMAL) POC GLUCOSE (04/22/2008 11:36 AM CDT) GLUCOSE POC 118(H) 60 - 100 mg/dL [facility] Venous blood specimen (specimen) 04/22/2008 11:36 AM CDT 04/23/2008 7:12 AM CDT us Riky Mejía MD POINT OF CARE TESTING Final Result Performing Organization Address [facility] de Phone Number INTERFACE SYSTEM Refer to clinic/hospital [facility] CLIA# [id number] [address] [place] [address] * (ABNORMAL) POC GLUCOSE (04/22/2008 7:55 AM CDT) GLUCOSE POC 160(H) 60 - 100 mg/dL [facility] Venous blood specimen (specimen) 04/22/2008 7:55 AM CDT 04/24/2008 7:07 AM CDT us Riky Mejía MD POINT OF CARE TESTING Final Result Performing Organization Address [facility] de Phone Number INTERFACE SYSTEM Refer to clinic/hospital department [facility] CLIA# [id number] [address] [place] [address] * (ABNORMAL) BASIC METABOLIC PANEL (04/22/2008 3:26 AM CDT) BUN 15 7 - 17 mg/dL [facility] CO2 28 22 - 32 mmol/l [facility] OSMOLALITY, CALCULATED 300(H) 275 - 295 mOsm/Kg [facility] POTASSIUM 3.0(L) 3.5 - 5.0 mEq/L [facility] CREATININE 0.2(L) 0.7 - 1.2 mg/dL [facility] CALCIUM 6.7(L) 8.4 - 10.5 mg/dL [facility] GLUCOSE 109 70 - 110 mg/dL [facility] CHLORIDE 109 95 - 110 mEq/L [facility] SODIUM 147(H) 136 - 145 mEq/L [facility] ANION GAP 13 9 - 20 mEq/L [facility] Blood specimen (specimen) 04/22/2008 3:26 AM CDT 04/22/2008 3:31 AM CDT us Riky Mejía MD CHEMISTRY ORDERABLES Final Result Performing Organization Address [facility] de Phone Number INTERFACE SYSTEM Refer to clinic/hospital department [facility] CLIA# [id number] [address] [place] [address] * POC GLUCOSE (04/22/2008 3:17 AM CDT) GLUCOSE POC 73 60 - 100 mg/dL [facility] Venous blood specimen (specimen) 04/22/2008 3:17 AM CDT 04/22/2008 6:51 AM CDT us Riky Mejía MD POINT OF CARE TESTING Final Result Performing Organization Address [facility] de Phone Number INTERFACE SYSTEM Refer to clinic/hospital department [facility] CLIA# [id number] [address] [place] [address] * (ABNORMAL) POC GLUCOSE (04/21/2008 11:17 PM CDT) GLUCOSE POC 130(H) 60 - 100 mg/dL [facility] Venous blood specimen (specimen) 04/21/2008 11:17 PM CDT 04/22/2008 6:51 AM CDT us Riky Mejía MD POINT OF CARE TESTING Final Result Performing Organization Address [facility] Phone Number INTERFACE SYSTEM Refer to clinic/hospital department [facility] CLIA# [id number] [address] [place] [address] * (ABNORMAL) POC GLUCOSE (04/21/2008 7:59 PM CDT) GLUCOSE POC 135(H) 60 - 100 mg/dL [facility] Venous blood specimen (specimen) 04/21/2008 7:59 PM CDT 04/22/2008 6:51 AM CDT Riky Mejía MD POINT OF CARE TESTING Final Result Performing Organization Address [facility] de Phone Number INTERFACE SYSTEM Refer to clinic/hospital department [facility] CLIA# [id number] [address] [place] [address] * (ABNORMAL) POC GLUCOSE (04/21/2008 4:29 PM CDT) GLUCOSE POC 144(H) 60 - 100 mg/dL [facility] COMMENT POC Follow Protocol [facility] Venous blood specimen (specimen) 04/21/2008 4:29 PM CDT 04/22/2008 6:51 AM CDT Riky Mejía MD POINT OF CARE TESTING Final Result Performing Organization Address [facility] de Phone Number INTERFACE SYSTEM Refer to clinic/hospital department [facility] CLIA# [id number] [address] [place] [address] * (ABNORMAL) POC GLUCOSE (04/21/2008 1:17 PM CDT) COMMENT POC Follow Protocol [facility] GLUCOSE POC 145(H) 60 - 100 mg/dL [facility] Venous blood specimen (specimen) 04/21/2008 1:17 PM CDT 04/22/2008 6:51 AM CDT us Riky Mejía MD POINT OF CARE TESTING Final Result Performing Organization Address [facility] de Phone Number INTERFACE SYSTEM Refer to clinic/hospital department [facility] CLIA# [id number] [address] [place] [address] * POTASSIUM LEVEL (04/21/2008 7:33 AM CDT) Pathologist [facility] POTASSIUM 4.2 3.5 - 5.0 mEq/L [facility] Comment: Specimen slightly hemolyzed Blood specimen (specimen) 04/21/2008 7:33 AM CDT 04/21/2008 7:33 AM CDT Riky Mejía MD CHEMISTRY ORDERABLES Final Result Performing Organization Address [facility] de Phone Number INTERFACE SYSTEM Refer to clinic/hospital department [facility] CLIA# [id number] [address] [place] [address] * (ABNORMAL) POC GLUCOSE (04/21/2008 7:26 AM CDT) GLUCOSE POC 146(H) 60 - 100 mg/dL [facility] Venous blood specimen (specimen) 04/21/2008 7:26 AM CDT 04/22/2008 6:51 AM CDT Riky Mejía MD POINT OF CARE TESTING Final Result Performing Organization Address [facility] Phone Number INTERFACE SYSTEM Refer to clinic/hospital department [facility] CLIA# [id number] [address] [place] [address] * (ABNORMAL) POC GLUCOSE (04/21/2008 2:58 AM CDT) [facility] GLUCOSE POC 128(H) 60 - 100 mg/dL [facility] Venous blood specimen (specimen) 04/21/2008 2:58 AM CDT 04/21/2008 7:32 AM CDT Riky Mejía MD POINT OF CARE TESTING Final Result Performing Organization Address [facility] Phone Number INTERFACE SYSTEM Refer to clinic/hospital department [facility] CLIA# [id number] [address] [place] [address] * (ABNORMAL) BASIC METABOLIC PANEL (04/21/2008 2:00 AM CDT) [facility] ANION GAP 7(L) 9 - 20 mEq/L [facility] SODIUM 137 136 - 145 mEq/L [facility] BUN 19(H) 7 - 17 mg/dL [facility] CO2 36(H) 22 - 32 mmol/l [facility] POTASSIUM 3.8 3.5 - 5.0 mEq/L [facility] OSMOLALITY, CALCULATED 287 275 - 295 mOsm/Kg [facility] CREATININE 0.4(L) 0.7 - 1.2 mg/dL [facility] CALCIUM 8.4 8.4 - 10.5 mg/dL [facility] GLUCOSE 142(H) 70 - 110 mg/dL [facility] CHLORIDE 98 95 - 110 mEq/L [facility] Blood specimen (specimen) 04/21/2008 2:00 AM CDT 04/21/2008 2:00 AM CDT Riky Mejía MD CHEMISTRY ORDERABLES Final Result Performing Organization Address [facility] Phone Number INTERFACE SYSTEM Refer to clinic/hospital department [facility] CLIA# [id number] [address] [place] [address] * (ABNORMAL) POC GLUCOSE (04/20/2008 11:57 PM CDT) GLUCOSE POC 142(H) 60 - 100 mg/dL [facility] Venous blood specimen (specimen) 04/20/2008 11:57 PM CDT 04/21/2008 12:09 AM CDT Riky Mejía MD POINT OF CARE TESTING Final Result Performing Organization Address [facility] Phone Number INTERFACE SYSTEM Refer to clinic/hospital department [facility] CLIA# [id number] [address] [place] [address] * (ABNORMAL) BASIC METABOLIC PANEL (04/20/2008 11:40 PM CDT) POTASSIUM 3.8 3.5 - 5.0 mEq/L [facility] Comment: Specimen slightly hemolyzed OSMOLALITY, CALCULATED 286 275 - 295 mOsm/Kg [facility] CREATININE 0.5(L) 0.7 - 1.2 mg/dL [facility] CALCIUM 8.7 8.4 - 10.5 mg/dL [facility] GLUCOSE 119(H) 70 - 110 mg/dL [facility] CHLORIDE 95 95 - 110 mEq/L [facility] ANION GAP 13 9 - 20 mEq/L [facility] SODIUM 137 136 - 145 mEq/L [facility] BUN 20(H) 7 - 17 mg/dL [facility] CO2 33(H) 22 - 32 mmol/l [facility] Blood specimen (specimen) 04/20/2008 11:40 PM CDT 04/21/2008 5:43 AM CDT Riky Mejía MD CHEMISTRY ORDERABLES Final Result Performing Organization Address [facility] Phone Number INTERFACE SYSTEM Refer to clinic/hospital department [facility] CLIA# [id number] [address] [place] [address] * (ABNORMAL) POC GLUCOSE (04/20/2008 7:17 PM CDT) GLUCOSE POC 134(H) 60 - 100 mg/dL [facility] Venous blood specimen (specimen) 04/20/2008 7:17 PM CDT 04/21/2008 12:00 AM CDT Riky Mejía MD POINT OF CARE TESTING Final Result Performing Organization Address [facility] Phone Number INTERFACE SYSTEM Refer to clinic/hospital [facility] CLIA# [id number] [address] [place] [address] * POTASSIUM LEVEL (04/20/2008 4:09 PM CDT) POTASSIUM 4.1 3.5 - 5.0 mEq/L [facility] Blood specimen (specimen) 04/20/2008 4:09 PM CDT 04/20/2008 4:09 PM CDT Riky Mejía MD CHEMISTRY ORDERABLES Final Result Performing Organization Address [facility] Phone Number INTERFACE SYSTEM Refer to clinic/[facility] CLIA# [id number] [address] [place] [address] * (ABNORMAL) POC GLUCOSE (04/20/2008 3:59 PM CDT) GLUCOSE POC 118(H) 60 - 100 mg/dL [facility] Venous blood specimen (specimen) 04/20/2008 3:59 PM CDT 04/21/2008 12:00 AM CDT Riky Mejía MD POINT OF CARE TESTING Final Result Performing Organization Address [facility] Phone Number INTERFACE SYSTEM Refer to clinic/hospital department [facility] CLIA# [id number] [address] [place] [address] * (ABNORMAL) POC GLUCOSE (04/20/2008 12:02 PM CDT) GLUCOSE POC 158(H) 60 - 100 mg/dL [facility] Venous blood specimen (specimen) 04/20/2008 12:02 PM CDT 04/21/2008 12:00 AM CDT Riky Mejía MD POINT OF CARE TESTING Final Result Performing Organization Address [facility] Phone Number INTERFACE SYSTEM Refer to clinic/hospital department [facility] CLIA# [id number] [address] [place] [address] * (ABNORMAL) POC ISTAT EG 7+ (04/20/2008 10:06 AM CDT) SPECIMEN TYPE Arterial [facility] Comment: Test Performed By [id number] Pulse OX: 97 Hemoglobin calculated from Hematocrit result PCO2 TEMP CORRECT 48(H) 35 - 45 mmHg [facility] HEMOGLOBIN POC 10.5 +/-3 g/dL 12.0 - 16.0 g/dL [facility] POTASSIUM 3.8 3.5 - 4.9 mEq/L [facility] PH TEMP CORRECT 7.47(H) 7.35 - 7.45 Unit [facility] HCO3 (CALC) POC 35.4(H) 22.0 - 26.0 mmol/l [facility] TCO2 (CALC) POC 37(H) 23 - 27 mmol/l [facility] FIO2 40 [facility] PO2 90 80 - 105 mmHg [facility] CALCIUM IONIZED 1.06(L) 1.12 - 1.32 mmol/l [facility] HEMATOCRIT ABG 31(L) 38 - 51 % [facility] PCO2 POC 48(H) 35 - 45 mmHg [facility] SODIUM 134(L) 138 - 146 mEq/L [facility] BASE EXCESS 12(H) -2 - 3 mmol/l [facility] PH 7.47(H) 7.35 - 7.45 Unit [facility] O2 SATURATION 97 95 - 98 % [facility] PO2 TEMP CORRECT 90 80 - 105 mmHg [facility] Arterial blood specimen (specimen) 04/20/2008 10:06 AM CDT 04/20/2008 11:14 AM CDT Riky Mejía MD POINT OF CARE TESTING COM F inal Result Performing Organization Address [facility] Phone Number INTERFACE SYSTEM Refer to clinic/hospital department [facility] CLIA# [id number] [address] [place] [address] * POTASSIUM LEVEL (04/20/2008 7:15 AM CDT) POTASSIUM 4.5 3.5 - 5.0 mEq/L [facility] Blood specimen (specimen) 04/20/2008 7:15 AM CDT 04/20/2008 7:20 AM CDT Riky Mejía MD CHEMISTRY ORDERABLES Final Result Performing Organization Address [facility] Phone Number INTERFACE SYSTEM Refer to clinic/hospital department [facility] CLIA# [id number] [address] [place] [address] * (ABNORMAL) POC GLUCOSE (04/20/2008 7:11 AM CDT) GLUCOSE POC 138(H) 60 - 100 mg/dL [facility] Venous blood specimen (specimen) 04/20/2008 7:11 AM CDT 04/20/2008 11:59 PM CDT Riky Mejía MD POINT OF CARE TESTING Final Result INTERFACE SYSTEM Refer to clinic/hospital department [facility] CLIA# [id number] [address] [place] [address] * (ABNORMAL) POC ISTAT EG 7+ (04/20/2008 4:30 AM CDT) FIO2 30 [facility] HEMATOCRIT ABG 29(L) 38 - 51 % [facility] PO2 84 80 - 105 mmHg [facility] CALCIUM IONIZED 1.11(L) 1.12 - 1.32 mmol/l [facility] PCO2 POC 44 35 - 45 mmHg [facility] BASE EXCESS 14(H) -2 - 3 mmol/l [facility] SODIUM 131(L) 138 - 146 mEq/L [facility] PH 7.53(H) 7.35 - 7.45 Unit [facility] PO2 TEMP CORRECT 84 80 - 105 mmHg [facility] O2 SATURATION 97 95 - 98 % [facility] SPECIMEN TYPE Arterial [facility] Comment: Test Performed By [id number] PEEP: 06 Pressure Support: 14 Pulse OX: 96 Hemoglobin calculated from Hematocrit result PCO2 TEMP CORRECT 44 35 - 45 mmHg [facility] POTASSIUM 4.0 3.5 - 4.9 mEq/L [facility] HEMOGLOBIN POC 9.9 +/-3 g/dL 12.0 - 16.0 g/dL [facility] PH TEMP CORRECT 7.53(H) 7.35 - 7.45 Unit [facility] TCO2 (CALC) POC 38(H) 23 - 27 mmol/l [facility] HCO3 (CALC) POC 36.4(H) 22.0 - 26.0 mmol/l [facility] Arterial blood specimen (specimen) 04/20/2008 4:30 AM CDT 04/20/2008 5:54 AM CDT us Riky Mejía MD POINT OF CARE TESTING COM F inal Result Performing Organization Address [facility] Phone Number INTERFACE SYSTEM Refer to clinic/hospital department [facility] CLIA# [id number] [place] [address] * (ABNORMAL) DIFFERENTIAL, MANUAL (04/20/2008 4:04 AM CDT) POIKILOCYTES 1+(A) None Seen [facility] MONOCYTE 9 4 - 10 % [facility] RBC MORPHOLOGY Abnormal(A ) Normal [facility] BANDS 11(H) 0 - 6 % [facility] POLYCHROMASIA 1+(A) None Seen [facility] EOSINOPHILS 1 0 - 3 % [facility] ANISOCYTOSIS 1+(A) None Seen [facility] PLATELET EST. Normal Normal [facility] LYMPHOCYTES 17(L) 24 - 44 % [facility] NEUTROPHILS, SEG 62 36 - 66 % [facility] Blood specimen (specimen) 04/20/2008 4:04 AM CDT 04/20/2008 4:16 AM CDT Narrative INTERFACE SYSTEM - 04/20/2008 5:12 AM CDT Differential ordered by policy. us Riky Mejía MD HEMATOLOGY ORDERABLES COM F inal Result Performing Organization Address [facility] Phone Number INTERFACE SYSTEM Refer to clinic/hospital department [facility] CLIA# [id number] [address] [place] [address] * (ABNORMAL) PT AND APTT (04/20/2008 4:04 AM CDT) PTT 31.3 22.5 - 36.5 Secs [facility] Comment: Therapeutic Range: ?? Hi-level PE/DVT heparin protocol 80.1 -95.0 ??sec ? Lo-level PE/DVT ??heparin protocol ??67.1 - ??80.0 sec ?? Cardiac Heparin Protocol 67.1 - 85.0 sec ?? Neuro Heparin Protocol 67.1 - 80.0 sec As of 09/25/2007 note change in APTT Normal Range. PROTIME 17.4(H) 12.8 - 15.8 Secs [facility] Comment:As of 2007 not e change in normal range. INR 1.3 [facility] Comment: Expected Values for INR: DVT/PE ?Goal INR 2.5; range 2.0 - 3.0 Valve Replacement ? Tissue ? Goal INR 2.5; range 2.0 - 3.0 ? Mechanical ?Goal INR 3.0; range 2.5 - 3.5 POST-AK ?Goal INR 2.5; range 2.0 - 3.0 ??or Goal 3.0; range 2.5 - 3.5 Atrial Fibrillation ?Goal INR 2.5; range 2.0 - 3.0 Ischemic Stroke ?Goal INR 2.5; range 2.0 - 3.0 For additional information see Guidelines for Anticoagulation available from the pharmacy [facility]. ??[phone] Blood specimen (specimen) 04/20/2008 4:04 AM CDT 04/20/2008 4:16 AM CDT us Riky Mejía MD HEMATOLOGY ORDERABLES Edite d INTERFACE SYSTEM Refer to clinic/hospital department [facility] CLIA# [id number] [address] [place] [address] * (ABNORMAL) CBC WITH DIFFERENTIAL (04/20/2008 4:04 AM CDT) Pathologist [facility] HEMATOCRIT 30.6(L) 36.0 - 46.0 % [facility] PLATELETS 436 140 - 440 K/ul [facility] RBC 3.30(L) 4.20 - 5.40 Mil/ul [facility] MCHC 32.0 30.0 - 35.0 g/dL [facility] MCV 92.7 84.0 - 103.0 Fl [facility] MPV 10.2 8.9 - 12.8 Fl [facility] HEMOGLOBIN 9.8(L) 12.0 - 16.0 g/dL [facility] RDW 17.3(H) 11.0 - 14.5 % [facility] WBC 13.0(H) 4.5 - 11.0 K/ul [facility] MCH 29.7 27.0 - 34.0 pg [facility] Blood specimen (specimen) 04/20/2008 4:04 AM CDT 04/20/2008 4:16 AM CDT us Riky Mejía MD HEMATOLOGY ORDERABLES Edite d INTERFACE SYSTEM Refer to clinic/hospital department [facility] CLIA# [id number] [address] [place] [address] * (ABNORMAL) BASIC METABOLIC PANEL (04/20/2008 4:04 AM CDT) Pathologist [facility] BUN 19(H) 7 - 17 mg/dL [facility] CO2 33(H) 22 - 32 mmol/l [facility] POTASSIUM 4.1 3.5 - 5.0 mEq/L [facility] OSMOLALITY, CALCULATED 280 275 - 295 mOsm/Kg [facility] CREATININE 0.5(L) 0.7 - 1.2 mg/dL [facility] CALCIUM 8.6 8.4 - 10.5 mg/dL [facility] GLUCOSE 146(H) 70 - 110 mg/dL [facility] CHLORIDE 97 95 - 110 mEq/L [facility] ANION GAP 7(L) 9 - 20 mEq/L [facility] SODIUM 133(L) 136 - 145 mEq/L [facility] Blood specimen (specimen) 04/20/2008 4:04 AM CDT 04/20/2008 4:40 AM CDT Riky Mejía MD CHEMISTRY ORDERABLES Final Result Performing Organization Address [facility] Phone Number INTERFACE SYSTEM Refer to clinic/hospital department [facility] CLIA# [id number] [address] [place] [address] * (ABNORMAL) POC GLUCOSE (04/20/2008 3:59 AM CDT) GLUCOSE POC 160(H) 60 - 100 mg/dL [facility] Venous blood specimen (specimen) 04/20/2008 3:59 AM CDT 04/20/2008 6:38 AM CDT Riky Mejía MD POINT OF CARE TESTING Final Result Performing Organization Address [facility] de Phone Number INTERFACE SYSTEM Refer to clinic/hospital department [facility] CLIA# [id number] [address] [place] [address] * POTASSIUM LEVEL (04/19/2008 11:37 PM CDT) POTASSIUM 4.3 3.5 - 5.0 mEq/L [facility] Blood specimen (specimen) 04/19/2008 11:37 PM CDT 04/19/2008 11:46 PM CDT Riky Mejía MD CHEMISTRY ORDERABLES Final Result Performing Organization Address [facility] de Phone Number INTERFACE SYSTEM Refer to clinic/hospital department [facility] CLIA# [id number] [address] [place] [address] * (ABNORMAL) POC GLUCOSE (04/19/2008 11:30 PM CDT) GLUCOSE POC 156(H) 60 - 100 mg/dL [facility] Venous blood specimen (specimen) 04/19/2008 11:30 PM CDT 04/20/2008 6:37 AM CDT us Riky Mejía MD POINT OF CARE TESTING Final Result Performing Organization Address [facility] Phone Number INTERFACE SYSTEM Refer to clinic/hospital department [facility] CLIA# [id number] [address] [place] [address] * (ABNORMAL) DIFFERENTIAL, MANUAL (04/19/2008 8:35 PM CDT) [facility] MONOCYTE 12(H) 4 - 10 % [facility] ANISOCYTOSIS 1+(A) None Seen [facility] BANDS 18(H) 0 - 6 % [facility] PLATELET EST. Normal Normal [facility] METAMYELOCYTE 2(H) 0 - 1 % [facility] POLYCHROMASIA 1+(A) None Seen [facility] LYMPHOCYTES 6(L) 24 - 44 % [facility] RBC MORPHOLOGY Abnormal(A ) Normal [facility] NEUTROPHILS, SEG 57 36 - 66 % [facility] MYELOCYTES 5(H) <=1 % [facility] GIANT PLATELETS Present(A) [facility] Blood specimen (specimen) 04/19/2008 8:35 PM CDT 04/19/2008 8:35 PM CDT Narrative INTERFACE SYSTEM - 04/19/2008 10:07 PM CDT Differential ordered by policy. us Riky Mjeía MD HEMATOLOGY ORDERABLES COM F inal Result INTERFACE SYSTEM Refer to clinic/hospital department [facility] CLIA# [id number] [address] [place] [address] * (ABNORMAL) PT AND APTT (04/19/2008 8:35 PM CDT) INR 1.3 [facility] Comment: Expected Values for INR: DVT/PE ?Goal INR 2.5; range 2.0 - 3.0 Valve Replacement ? Tissue ? Goal INR 2.5; range 2.0 - 3.0 ? Mechanical ?Goal INR 3.0; range 2.5 - 3.5 POST-AK ?Goal INR 2.5; range 2.0 - 3.0 ??or Goal 3.0; range 2.5 - 3.5 Atrial Fibrillation ?Goal INR 2.5; range 2.0 - 3.0 Ischemic Stroke ?Goal INR 2.5; range 2.0 - 3.0 For additional information see Guidelines for Anticoagulation available from the pharmacy [facility]. ??[phone] PROTIME 17.0(H) 12.8 - 15.8 Secs [facility] Comment:As of 2007 not e change in normal range. PTT 33.0 22.5 - 36.5 Secs [facility] Comment: Therapeutic Range: ?? Hi-level PE/DVT heparin protocol 80.1 -95.0 ??sec ? Lo-level PE/DVT ??heparin protocol ??67.1 - ??80.0 sec ?? Cardiac Heparin Protocol 67.1 - 85.0 sec ?? Neuro Heparin Protocol 67.1 - 80.0 sec As of 09/25/2007 note change in APTT Normal Range. Blood specimen (specimen) 04/19/2008 8:35 PM CDT 04/19/2008 8:35 PM CDT us Riky Mejía MD HEMATOLOGY ORDERABLES Edite d INTERFACE SYSTEM Refer to clinic/hospital department [facility] CLIA# [id number] [address] [place] [address] * (ABNORMAL) CBC WITH DIFFERENTIAL (04/19/2008 8:35 PM CDT) RBC 3.37(L) 4.20 - 5.40 Mil/ul [facility] MCHC 31.6 30.0 - 35.0 g/dL [facility] LYMPHOCYTE ABSOLUTE 1.8 1.2 - 4.0 K/ul [facility] LYMPHOCYTES 12.2(L) 24.0 - 44.0 % [facility] MCV 92.9 84.0 - 103.0 Fl [facility] BASOPHILS 0.9 0.0 - 1.0 % [facility] MPV 10.4 8.9 - 12.8 Fl [facility] NRBC 1 <=1 [facility] BASOPHILS ABSOLUTE 0.1 0.0 - 0.2 K/ul [facility] HEMOGLOBIN 9.9(L) 12.0 - 16.0 g/dL [facility] MONOCYTES 10.2(H) 2.0 - 10.0 % [facility] RDW 17.4(H) 11.0 - 14.5 % [facility] MONOCYTE ABSOLUTE 1.5(H) 0.1 - 0.6 K/ul [facility] NEUTROPHILS 75.3(H) 42.2 - 75.2 % [facility] MCH 29.4 27.0 - 34.0 pg [facility] WBC 14.9(H) 4.5 - 11.0 K/ul [facility] Comment: WBC Corrected for Nucleated RBC'S NEUTROPHIL ABSOLUTE 11.3(H) 2.0 - 8.0 K/ul [facility] HEMATOCRIT 31.3(L) 36.0 - 46.0 % [facility] PLATELETS 459(H) 140 - 440 K/ul [facility] EOSINOPHIL ABSOLUTE 0.2 0.0 - 0.7 K/ul [facility] EOSINOPHILS 1.4 0.0 - 7.0 % [facility] Blood specimen (specimen) 04/19/2008 8:35 PM CDT 04/19/2008 8:35 PM CDT Riky Mejía MD HEMATOLOGY ORDERABLES Edite d Performing Organization Address [facility] Phone Number INTERFACE SYSTEM Refer to clinic/hospital department [facility] CLIA# [id number] [address] [place] [address] * (ABNORMAL) POC GLUCOSE (04/19/2008 8:31 PM CDT) [facility] Signature GLUCOSE POC 115(H) 60 - 100 mg/dL [facility] Venous blood specimen (specimen) 04/19/2008 8:31 PM CDT 04/20/2008 6:37 AM CDT Riky Mejía MD POINT OF CARE TESTING Final Result Performing Organization Address [facility] Phone Number INTERFACE SYSTEM Refer to clinic/hospital department [facility] CLIA# [id number] [address] [place] [address] * XR CHEST PA OR AP (04/19/2008 5:19 PM CDT) Anatomical Region Laterality Modality Chest Other 04/19/2008 5:19 PM CDT Narrative 04/19/2008 8:27 PM CDT Exam: Chest - Portable Date/Time of Exam: Apr 19, 2008 5:19:30 PM History: Line placement. Findings: Compared with 04/19/2008, endotracheal tube remains in place with tip currently at the level of the clavicles. Nasogastric tube extends off the film at the left upper quadrant of the abdomen. Left subclavian central line tip remains in SVC. Interval placement of right-sided PICC line with tip in SVC. Low lung volumes. Elevated right hemidiaphragm. Right perihilar opacity is again noted. No pleural effusion. Cardiomediastinal contours are stable. - Dictated By: ??Frederic Vieyra M.D. Electronically Signed By: ??Frederic Vieyra M.D. Date Signed: 04/19/08 Procedure Note Frederic Vieyra MD - 04/19/2008 Exam: Chest - Portable Date/Time of Exam: Apr 19, 2008 5:19:30 PM History: Line placement. Findings: Compared with 04/19/2008, endotracheal tube remains in placewith tip currently at the level of the clavicles. Nasogastric tube extends off the film at the left upperquadrant of the abdomen. Left subclavian central line tip remains in SVC. Interval placement ofright-sided PICC line with tip in SVC. Low lung volumes. Elevated right hemidiaphragm. Right perihilar opacity isagain noted. No pleural effusion. Cardiomediastinal contours are stable. - Dictated By: Frederic Vieyra M.D. Electronically Signed By: Frederic Vieyra M.D. Date Signed: 04/19/08 Riky Mejía MD DIAGNOSTIC IMAGING ORDERABL ES Final Result * (ABNORMAL) POC GLUCOSE (04/19/2008 4:58 PM CDT) GLUCOSE POC 125(H) 60 - 100 mg/dL [facility] Venous blood specimen (specimen) 04/19/2008 4:58 PM CDT 04/20/2008 7:00 AM CDT Riky Mejía MD POINT OF CARE TESTING Final Result INTERFACE SYSTEM Refer to clinic/hospital department [facility] CLIA# [id number] [place] [address] * POTASSIUM LEVEL (04/19/2008 4:30 PM CDT) POTASSIUM 4.0 3.5 - 5.0 mEq/L [facility] Blood specimen (specimen) 04/19/2008 4:30 PM CDT 04/19/2008 4:30 PM CDT Riky Mejía MD CHEMISTRY ORDERABLES Final Result Performing Organization Address [facility] de Phone Number INTERFACE SYSTEM Refer to clinic/hospital department [facility] CLIA# [id number] [address] [place] [address] * (ABNORMAL) POC GLUCOSE (04/19/2008 12:04 PM CDT) GLUCOSE POC 139(H) 60 - 100 mg/dL [facility] Venous blood specimen (specimen) 04/19/2008 12:04 PM CDT 04/20/2008 7:00 AM CDT Riky Mejía MD POINT OF CARE TESTING Final Result Performing Organization Address [facility] Phone Number INTERFACE SYSTEM Refer to clinic/hospital department [facility] CLIA# [id number] [address] [place] [address] * (ABNORMAL) POC GLUCOSE (04/19/2008 8:28 AM CDT) GLUCOSE POC 144(H) 60 - 100 mg/dL [facility] Venous blood specimen (specimen) 04/19/2008 8:28 AM CDT 04/20/2008 7:00 AM CDT us Riky Mejía MD POINT OF CARE TESTING Final Result Performing Organization Address [facility] de Phone Number INTERFACE SYSTEM Refer to clinic/hospital department [facility] CLIA# [id number] [address] [place] [address] * XR CHEST PA OR AP (04/19/2008 3:57 AM CDT) Anatomical Region Laterality Modality Chest Other 04/19/2008 3:57 AM CDT Narrative 04/19/2008 8:50 AM CDT Exam: Chest - Portable Date/Time of Exam: Apr 19, 2008 3:57:23 AM History: Post-operative. Findings: Today's study compared to 04/16/2008. Midline structures stable as evaluated. Marked decreased lung volumes and elevated right hemidiaphragm persists. Parahilar atelectasis or infiltrates right greater than left. Endotracheal and nasogastric tubes remain in place in similar position as does left subclavian central catheter. No pneumothorax. Overall little interval change. - Dictated By: ??Tyler Manrique D.O. Electronically Signed By: ??Tyler Manrique D.O. Date Signed: 04/19/08 Procedure Note Tyler Manrique - 04/19/2008 Exam: Chest - Portable Date/Time of Exam: Apr 19, 2008 3:57:23 AM History: Post-operative. Findings: Today's study compared to 04/16/2008. Midline structures stable as evaluated. Marked decreased lung volumes andelevated right hemidiaphragm persists. Parahilar atelectasis or infiltrates right greater than left.Endotracheal and nasogastric tubes remain in place in similar position as does left subclavian centralcatheter. No pneumothorax. Overall little interval change. - Dictated By: Tyler Manrique D.O. Electronically Signed By: Tyler Manrique D.O. Date Signed: 04/19/08 Riky Mejía MD DIAGNOSTIC IMAGING ORDERABL ES Final Result * (ABNORMAL) DIFFERENTIAL, MANUAL (04/19/2008 3:20 AM CDT) ANISOCYTOSIS 1+(A) None Seen [facility] LYMPHOCYTES 15(L) 24 - 44 % [facility] MYELOCYTES 1 <=1 % [facility] MONOCYTE 4 4 - 10 % [facility] NEUTROPHILS, SEG 73(H) 36 - 66 % [facility] POIKILOCYTES 1+(A) None Seen [facility] PLATELET EST. Normal Normal [facility] BANDS 6 0 - 6 % [facility] POLYCHROMASIA Present(A) None Seen [facility] EOSINOPHILS 1 0 - 3 % [facility] Blood specimen (specimen) 04/19/2008 3:20 AM CDT 04/19/2008 3:20 AM CDT Narrative INTERFACE SYSTEM - 04/19/2008 3:58 AM CDT Differential ordered by policy. us Riky Mejía MD HEMATOLOGY ORDERABLES COM F inal Result INTERFACE SYSTEM Refer to clinic/hospital department [facility] CLIA# [id number] [facility] [place] [address] * (ABNORMAL) COMPREHENSIVE METABOLIC PANEL (04/19/2008 3:20 AM CDT) GLUCOSE 138(H) 70 - 110 mg/dL [facility] CHLORIDE 94(L) 95 - 110 mEq/L [facility] ALBUMIN/GLOBULIN RATIO 0.9(L) 1.0 - 2.3 [facility] ALKALINE PHOSPHATASE 209(H) 25 - 100 U/L [facility] SODIUM 136 136 - 145 mEq/L [facility] BILIRUBIN TOTAL 1.6(H) 0.3 - 1.2 mg/dL [facility] TOTAL PROTEIN 5.6(L) 6.3 - 8.2 g/dL [facility] BUN 19(H) 7 - 17 mg/dL [facility] AST 73(H) 8 - 33 U/L [facility] CO2 37(H) 22 - 32 mmol/l [facility] ANION GAP 9 9 - 20 mEq/L [facility] ALBUMIN 2.6(L) 3.5 - 5.0 g/dL [facility] POTASSIUM 3.9 3.5 - 5.0 mEq/L [facility] GLOBULIN (CALC) 3.0 2.4 - 3.9 g/dL [facility] CREATININE 0.5(L) 0.7 - 1.2 mg/dL [facility] CALCIUM 8.6 8.4 - 10.5 mg/dL [facility] OSMOLALITY, CALCULATED 285 275 - 295 mOsm/Kg [facility] ALT 68(H) 4 - 36 IU/L [facility] Blood specimen (specimen) 04/19/2008 3:20 AM CDT 04/19/2008 3:20 AM CDT us Riky Mejía MD CHEMISTRY ORDERABLES Final Result Performing Organization Address City/State/[facility] Co de Phone Number INTERFACE SYSTEM Refer to clinic/hospital department [facility] CLIA# [id number] [address] [place] [address] * (ABNORMAL) CBC WITH DIFFERENTIAL (04/19/2008 3:20 AM CDT) WBC 13.9(H) 4.5 - 11.0 K/ul [facility] MCH 29.1 27.0 - 34.0 pg [facility] HEMATOCRIT 30.7(L) 36.0 - 46.0 % [facility] PLATELETS 390 140 - 440 K/ul [facility] RBC 3.33(L) 4.20 - 5.40 Mil/ul [facility] MCHC 31.6 30.0 - 35.0 g/dL [facility] MPV 10.2 8.9 - 12.8 Fl [facility] MCV 92.2 84.0 - 103.0 Fl [facility] HEMOGLOBIN 9.7(L) 12.0 - 16.0 g/dL [facility] RDW 16.9(H) 11.0 - 14.5 % [facility] Blood specimen (specimen) 04/19/2008 3:20 AM CDT 04/19/2008 3:20 AM CDT us Riky Mejía MD HEMATOLOGY ORDERABLES Edite d Performing Organization Address [facility] Phone Number INTERFACE SYSTEM Refer to clinic/hospital department [facility] CLIA# [id number] [address] [place] [address] * POTASSIUM LEVEL (04/18/2008 11:41 PM CDT) POTASSIUM 3.9 3.5 - 5.0 mEq/L [facility] Blood specimen (specimen) 04/18/2008 11:41 PM CDT 04/18/2008 11:41 PM CDT us Riky Mejía MD CHEMISTRY ORDERABLES Final Result Performing Organization Address [facility] Phone Number INTERFACE SYSTEM Refer to clinic/hospital department [facility] CLIA# [id number] [address] [place] [address] * POTASSIUM LEVEL (04/18/2008 3:49 PM CDT) POTASSIUM 4.0 3.5 - 5.0 mEq/L [facility] Blood specimen (specimen) 04/18/2008 3:49 PM CDT 04/18/2008 3:49 PM CDT us Riky Mejía MD CHEMISTRY ORDERABLES Final Result Performing Organization Address [facility] Phone Number INTERFACE SYSTEM Refer to clinic/hospital [facility] CLIA# [id number] [address] [place] [address] * (ABNORMAL) POC GLUCOSE (04/18/2008 7:29 AM CDT) GLUCOSE POC 153(H) 60 - 100 mg/dL [facility] Venous blood specimen (specimen) 04/18/2008 7:29 AM CDT 04/19/2008 6:47 AM CDT Riky Mejía MD POINT OF CARE TESTING Final Result INTERFACE SYSTEM Refer to clinic/hospital department [facility] CLIA# [id number] [place] [address] * (ABNORMAL) CBC WITH DIFFERENTIAL (04/18/2008 3:29 AM CDT) RDW 17.0(H) 11.0 - 14.5 % [facility] BASOPHILS ABSOLUTE 0.2 0.0 - 0.2 K/ul [facility] BASOPHILS 1.0 0.0 - 1.0 % [facility] WBC 14.5(H) 4.5 - 11.0 K/ul [facility] MCH 29.0 27.0 - 34.0 pg [facility] MONOCYTE ABSOLUTE 1.1(H) 0.1 - 0.6 K/ul [facility] MONOCYTES 7.3 2.0 - 10.0 % [facility] HEMATOCRIT 30.5(L) 36.0 - 46.0 % [facility] NEUTROPHIL ABSOLUTE 12.1(H) 2.0 - 8.0 K/ul [facility] NEUTROPHILS 83.1(H) 42.2 - 75.2 % [facility] PLATELETS 332 140 - 440 K/ul [facility] RBC 3.31(L) 4.20 - 5.40 Mil/ul [facility] MCHC 31.5 30.0 - 35.0 g/dL [facility] EOSINOPHILS 1.3 0.0 - 7.0 % [facility] PERIPHERAL BLOOD SMEAR REVIEW Automated Diff [facility] EOSINOPHIL ABSOLUTE 0.2 0.0 - 0.7 K/ul [facility] MCV 92.1 84.0 - 103.0 Fl [facility] LYMPHOCYTES 7.3(L) 24.0 - 44.0 % [facility] MPV 10.3 8.9 - 12.8 Fl [facility] LYMPHOCYTE ABSOLUTE 1.1(L) 1.2 - 4.0 K/ul [facility] HEMOGLOBIN 9.6(L) 12.0 - 16.0 g/dL [facility] Blood specimen (specimen) 04/18/2008 3:29 AM CDT 04/18/2008 3:35 AM CDT us Riky Mejía MD HEMATOLOGY ORDERABLES Edite d INTERFACE SYSTEM Refer to clinic/hospital department [facility] CLIA# [id number] [facility] [place] [address] * (ABNORMAL) COMPREHENSIVE METABOLIC PANEL (04/18/2008 3:29 AM CDT) AST 133(H) 8 - 33 U/L [facility] ALBUMIN/GLOBULIN RATIO 0.9(L) 1.0 - 2.3 [facility] POTASSIUM 4.1 3.5 - 5.0 mEq/L [facility] ANION GAP 6(L) 9 - 20 mEq/L [facility] ALBUMIN 2.4(L) 3.5 - 5.0 g/dL [facility] CREATININE 0.4(L) 0.7 - 1.2 mg/dL [facility] ALT 75(H) 4 - 36 IU/L [facility] CALCIUM 8.6 8.4 - 10.5 mg/dL [facility] GLUCOSE 134(H) 70 - 110 mg/dL [facility] ALKALINE PHOSPHATASE 167(H) 25 - 100 U/L [facility] CHLORIDE 96 95 - 110 mEq/L [facility] OSMOLALITY, CALCULATED 287 275 - 295 mOsm/Kg [facility] GLOBULIN (CALC) 2.8 2.4 - 3.9 g/dL [facility] TOTAL PROTEIN 5.2(L) 6.3 - 8.2 g/dL [facility] SODIUM 137 136 - 145 mEq/L [facility] BILIRUBIN TOTAL 2.1(H) 0.3 - 1.2 mg/dL [facility] CO2 39(H) 22 - 32 mmol/l [facility] BUN 20(H) 7 - 17 mg/dL [facility] Blood specimen (specimen) 04/18/2008 3:29 AM CDT 04/18/2008 3:35 AM CDT us Riky Mejía MD CHEMISTRY ORDERABLES Final Result Performing Organization Address [facility] Phone Number INTERFACE SYSTEM Refer to clinic/hospital department [facility] CLIA# [id number] [address] [place] [id number] * POTASSIUM LEVEL (04/17/2008 6:15 PM CDT) POTASSIUM 3.8 3.5 - 5.0 mEq/L [facility] Blood specimen (specimen) 04/17/2008 6:15 PM CDT 04/17/2008 6:19 PM CDT Narrative INTERFACE SYSTEM - 04/17/2008 6:44 PM CDT stat us Riky Mejía MD CHEMISTRY ORDERABLES Final Result Performing Organization Address [facility] Phone Number INTERFACE SYSTEM Refer to clinic/hospital department [facility] CLIA# [id number] [address] [place] [id number] * (ABNORMAL) POC GLUCOSE (04/17/2008 6:10 PM CDT) GLUCOSE POC 103(H) 60 - 100 mg/dL [facility] Venous blood specimen (specimen) 04/17/2008 6:10 PM CDT 04/18/2008 7:19 AM CDT Riky Mejía MD POINT OF CARE TESTING Final Result Performing Organization Address [facility]/ZIP Co de Phone Number INTERFACE SYSTEM Refer to clinic/hospital department [facility] CLIA# [id number] [place] [address] * (ABNORMAL) POC GLUCOSE (04/17/2008 8:18 AM CDT) GLUCOSE POC 149(H) 60 - 100 mg/dL [facility] Venous blood specimen (specimen) 04/17/2008 8:18 AM CDT 04/18/2008 7:18 AM CDT Riky Mejía MD POINT OF CARE TESTING Final Result INTERFACE SYSTEM Refer to clinic/[facility] LAB CLIA# [id number] [address] [place] [address] * (ABNORMAL) POC ISTAT EG 7+ (04/17/2008 5:31 AM CDT) SODIUM 138 138 - 146 mEq/L [facility] PH 7.49(H) 7.35 - 7.45 Unit [facility] PO2 TEMP CORRECT 92 80 - 105 mmHg [facility] O2 SATURATION 98 95 - 98 % [facility] SPECIMEN TYPE Arterial [facility] Comment: Test Performed By [id number] Tidal volume: 450 PEEP: 08 Rate: 10 Pulse OX: 100 Hemoglobin calculated from Hematocrit result PCO2 TEMP CORRECT 50(H) 35 - 45 mmHg [facility] POTASSIUM 3.6 3.5 - 4.9 mEq/L [facility] HEMOGLOBIN POC 9.5 +/-3 g/dL 12.0 - 16.0 g/dL [facility] PH TEMP CORRECT 7.49(H) 7.35 - 7.45 Unit [facility] TCO2 (CALC) POC 40(H) 23 - 27 mmol/l [facility] HCO3 (CALC) POC 38.0(H) 22.0 - 26.0 mmol/l [facility] FIO2 30 [facility] HEMATOCRIT ABG 28(L) 38 - 51 % [facility] PO2 92 80 - 105 mmHg [facility] CALCIUM IONIZED 1.04(L) 1.12 - 1.32 mmol/l [facility] PCO2 POC 50(H) 35 - 45 mmHg [facility] BASE EXCESS 15(H) -2 - 3 mmol/l [facility] Arterial blood specimen (specimen) 04/17/2008 5:31 AM CDT 04/17/2008 6:05 AM CDT us Riky Mejía MD POINT OF CARE TESTING COM F inal Result INTERFACE SYSTEM Refer to clinic/hospital department [facility] CLIA# [id number] [address] [place] [address] * (ABNORMAL) POC ISTAT EG 7+ (04/17/2008 4:22 AM CDT) PCO2 POC 52(H) 35 - 45 mmHg [facility] BASE EXCESS 19(H) -2 - 3 mmol/l [facility] SODIUM 137(L) 138 - 146 mEq/L [facility] PH 7.51(H) 7.35 - 7.45 Unit [facility] PO2 TEMP CORRECT 448(H) 80 - 105 mmHg [facility] O2 SATURATION 100(H) 95 - 98 % [facility] SPECIMEN TYPE Arterial [facility] Comment: Test Performed By [id number] Tidal volume: 500 PEEP: 08 Rate: 12 Pulse OX: 100 Hemoglobin calculated from Hematocrit result PCO2 TEMP CORRECT 52(H) 35 - 45 mmHg [facility] POTASSIUM 3.7 3.5 - 4.9 mEq/L [facility] HEMOGLOBIN POC 10.2 +/-3 g/dL 12.0 - 16.0 g/dL [facility] PH TEMP CORRECT 7.51(H) 7.35 - 7.45 Unit [facility] TCO2 (CALC) POC 44(H) 23 - 27 mmol/l [facility] HCO3 (CALC) POC 41.9(H) 22.0 - 26.0 mmol/l [facility] FIO2 30 [facility] HEMATOCRIT ABG 30(L) 38 - 51 % [facility] PO2 448(H) 80 - 105 mmHg [facility] CALCIUM IONIZED 1.01(L) 1.12 - 1.32 mmol/l [facility] Arterial blood specimen (specimen) 04/17/2008 4:22 AM CDT 04/17/2008 5:21 AM CDT Riky Mejía MD POINT OF CARE TESTING COM F inal Result INTERFACE SYSTEM Refer to clinic/hospital department [facility] CLIA# [id number] [address] [place] [address] * (ABNORMAL) CBC WITH DIFFERENTIAL (04/17/2008 2:07 AM CDT) BASOPHILS ABSOLUTE 0.1 0.0 - 0.2 K/ul [facility] BASOPHILS 0.8 0.0 - 1.0 % [facility] HEMOGLOBIN 9.4(L) 12.0 - 16.0 g/dL [facility] RDW 16.7(H) 11.0 - 14.5 % [facility] MONOCYTE ABSOLUTE 1.1(H) 0.1 - 0.6 K/ul [facility] MONOCYTES 7.2 2.0 - 10.0 % [facility] WBC 14.8(H) 4.5 - 11.0 K/ul [facility] MCH 29.2 27.0 - 34.0 pg [facility] NEUTROPHIL ABSOLUTE 12.7(H) 2.0 - 8.0 K/ul [facility] NEUTROPHILS 86.0(H) 42.2 - 75.2 % [facility] HEMATOCRIT 28.9(L) 36.0 - 46.0 % [facility] EOSINOPHILS 1.2 0.0 - 7.0 % [facility] PLATELETS 287 140 - 440 K/ul [facility] PERIPHERAL BLOOD SMEAR REVIEW Automated Diff [facility] EOSINOPHIL ABSOLUTE 0.2 0.0 - 0.7 K/ul [facility] RBC 3.22(L) 4.20 - 5.40 Mil/ul [facility] LYMPHOCYTES 4.8(L) 24.0 - 44.0 % [facility] MCHC 32.5 30.0 - 35.0 g/dL [facility] LYMPHOCYTE ABSOLUTE 0.7(L) 1.2 - 4.0 K/ul [facility] MCV 89.8 84.0 - 103.0 Fl [facility] MPV 10.3 8.9 - 12.8 Fl [facility] Blood specimen (specimen) 04/17/2008 2:07 AM CDT 04/17/2008 2:12 AM CDT us Riky Mejía MD HEMATOLOGY ORDERABLES Final Result Performing Organization Address [facility] Phone Number INTERFACE SYSTEM Refer to clinic/hospital department [facility] CLIA# [id number] [address] [place] [address] * PHOSPHORUS (04/17/2008 2:07 AM CDT) PHOSPHORUS 3.0 2.5 - 4.6 mg/dL [facility] Blood specimen (specimen) 04/17/2008 2:07 AM CDT 04/17/2008 2:12 AM CDT us Riky Mejía MD CHEMISTRY ORDERABLES Final Result Performing Organization Address [facility] Phone Number INTERFACE SYSTEM Refer to clinic/hospital department [facility] CLIA# [id number] [address] [place] [address] * (ABNORMAL) COMPREHENSIVE METABOLIC PANEL (04/17/2008 2:07 AM CDT) GLOBULIN (CALC) 2.7 2.4 - 3.9 g/dL [facility] SODIUM 141 136 - 145 mEq/L [facility] BILIRUBIN TOTAL 2.6(H) 0.3 - 1.2 mg/dL [facility] TOTAL PROTEIN 4.9(L) 6.3 - 8.2 g/dL [facility] BUN 16 7 - 17 mg/dL [facility] AST 52(H) 8 - 33 U/L [facility] CO2 36(H) 22 - 32 mmol/l [facility] ALBUMIN/GLOBULIN RATIO 0.8(L) 1.0 - 2.3 [facility] ALBUMIN 2.2(L) 3.5 - 5.0 g/dL [facility] POTASSIUM 3.6 3.5 - 5.0 mEq/L [facility] ANION GAP 7(L) 9 - 20 mEq/L [facility] CALCIUM 7.9(L) 8.4 - 10.5 mg/dL [facility] CREATININE 0.5(L) 0.7 - 1.2 mg/dL [facility] ALT 37(H) 4 - 36 IU/L [facility] GLUCOSE 131(H) 70 - 110 mg/dL [facility] CHLORIDE 102 95 - 110 mEq/L [facility] OSMOLALITY, CALCULATED 292 275 - 295 mOsm/Kg [facility] ALKALINE PHOSPHATASE 122(H) 25 - 100 U/L [facility] Blood specimen (specimen) 04/17/2008 2:07 AM CDT 04/17/2008 2:12 AM CDT us Riky Mejía MD CHEMISTRY ORDERABLES Final Result INTERFACE SYSTEM Refer to clinic/hospital department [facility] CLIA# [id number] [address] [place] [address] * (ABNORMAL) TRIGLYCERIDE (04/17/2008 2:07 AM CDT) TRIGLYCERIDE 326(H) 0 - 150 mg/dL [facility] Comment: On 11/10/2007, [facility] changed the triglyceride reference range to 0-150 mg/dl. ??This is the recommendation of the National Cholesterol Education Program (NCEP-ATPIII). Blood specimen (specimen) 04/17/2008 2:07 AM CDT 04/17/2008 2:12 AM CDT Riky Mejía MD CHEMISTRY ORDERABLES Final Result Performing Organization Address [facility] Phone Number INTERFACE SYSTEM Refer to clinic/hospital department [facility] CLIA# [id number] [address] [place] [address] * (ABNORMAL) POC GLUCOSE (04/16/2008 6:56 PM CDT) [facility] GLUCOSE POC 151(H) 60 - 100 mg/dL [facility] Venous blood specimen (specimen) 04/16/2008 6:56 PM CDT 04/17/2008 12:06 PM CDT Riky Mejía MD POINT OF CARE TESTING Final Result Performing Organization Address [facility] de Phone Number INTERFACE SYSTEM Refer to clinic/hospital department [facility] CLIA# [id number] [address] [place] [address] * POTASSIUM LEVEL (04/16/2008 4:43 PM CDT) POTASSIUM 3.7 3.5 - 5.0 mEq/L [facility] Comment: Specimen slightly hemolyzed. ??Slight icteric. Blood specimen (specimen) 04/16/2008 4:43 PM CDT 04/16/2008 4:43 PM CDT us Riky Mejía MD CHEMISTRY ORDERABLES Final Result INTERFACE SYSTEM Refer to clinic/hospital department [facility] CLIA# [id number] [address] [place] [address] * (ABNORMAL) POC ISTAT EG 7+ (04/16/2008 12:11 PM CDT) POTASSIUM 3.5 3.5 - 4.9 mEq/L [facility] SPECIMEN TYPE Arterial [facility] Comment: Test Performed By [id number] Pulse OX: 97 Hemoglobin calculated from Hematocrit result PCO2 TEMP CORRECT 59(H) 35 - 45 mmHg [facility] HEMOGLOBIN POC 9.9 +/-3 g/dL 12.0 - 16.0 g/dL [facility] PH TEMP CORRECT 7.39 7.35 - 7.45 Unit [facility] HCO3 (CALC) POC 35.3(H) 22.0 - 26.0 mmol/l [facility] CALCIUM IONIZED 1.10(L) 1.12 - 1.32 mmol/l [facility] TCO2 (CALC) POC 37(H) 23 - 27 mmol/l [facility] FIO2 40 [facility] PO2 93 80 - 105 mmHg [facility] HEMATOCRIT ABG 29(L) 38 - 51 % [facility] PCO2 POC 59(H) 35 - 45 mmHg [facility] SODIUM 135(L) 138 - 146 mEq/L [facility] BASE EXCESS 10(H) -2 - 3 mmol/l [facility] PH 7.39 7.35 - 7.45 Unit [facility] O2 SATURATION 97 95 - 98 % [facility] PO2 TEMP CORRECT 93 80 - 105 mmHg [facility] Arterial blood specimen (specimen) 04/16/2008 12:11 PM CDT 04/16/2008 12:15 PM CDT Riky Mejía MD POINT OF CARE TESTING COM F inal Result Performing Organization Address City/[facility] Co de Phone Number INTERFACE SYSTEM Refer to clinic/hospital department [facility] CLIA# [id number] [address] [place] [address] * (ABNORMAL) POC GLUCOSE (04/16/2008 7:40 AM CDT) GLUCOSE POC 166(H) 60 - 100 mg/dL [facility] Venous blood specimen (specimen) 04/16/2008 7:40 AM CDT 04/17/2008 12:06 PM CDT Riky Mejía MD POINT OF CARE TESTING Final Result Performing Organization Address [facility] de Phone Number INTERFACE SYSTEM Refer to clinic/hospital department [facility] CLIA# [id number] [address] [place] [address] * (ABNORMAL) POC ISTAT EG 7+ (04/16/2008 5:16 AM CDT) CALCIUM IONIZED 1.12 1.12 - 1.32 mmol/l [facility] PCO2 POC 46(H) 35 - 45 mmHg [facility] BASE EXCESS 10(H) -2 - 3 mmol/l [facility] SODIUM 133(L) 138 - 146 mEq/L [facility] PH 7.47(H) 7.35 - 7.45 Unit [facility] PO2 TEMP CORRECT 83 80 - 105 mmHg [facility] O2 SATURATION 97 95 - 98 % [facility] SPECIMEN TYPE Arterial [facility] Comment: Test Performed By [id number] Tidal volume: 500 PEEP: 06 Rate: 12 Pulse OX: 97 Hemoglobin calculated from Hematocrit result PCO2 TEMP CORRECT 46(H) 35 - 45 mmHg [facility] POTASSIUM 3.0(L) 3.5 - 4.9 mEq/L [facility] HEMOGLOBIN POC 9.2 +/-3 g/dL 12.0 - 16.0 g/dL [facility] PH TEMP CORRECT 7.47(H) 7.35 - 7.45 Unit [facility] TCO2 (CALC) POC 35(H) 23 - 27 mmol/l [facility] HCO3 (CALC) POC 33.4(H) 22.0 - 26.0 mmol/l [facility] FIO2 30 [facility] HEMATOCRIT ABG 27(L) 38 - 51 % [facility] PO2 83 80 - 105 mmHg [facility] Arterial blood specimen (specimen) 04/16/2008 5:16 AM CDT 04/16/2008 5:51 AM CDT Riky Mejía MD POINT OF CARE TESTING COM F inal Result Performing Organization Address [facility] de Phone Number INTERFACE SYSTEM Refer to clinic/hospital department [facility] CLIA# [id number] [address] [place] [address] * (ABNORMAL) POC GLUCOSE (04/16/2008 5:12 AM CDT) GLUCOSE POC 151(H) 60 - 100 mg/dL [facility] Venous blood specimen (specimen) 04/16/2008 5:12 AM CDT 04/16/2008 6:51 AM CDT Riky Mejía MD POINT OF CARE TESTING Final Result Performing Organization Address [facility] Phone Number INTERFACE SYSTEM Refer to clinic/hospital department [facility] CLIA# [id number] [address] [place] [address] * XR CHEST PA OR AP (04/16/2008 4:01 AM CDT) Anatomical Region Laterality Modality Chest Other 04/16/2008 4:01 AM CDT Narrative 04/16/2008 11:28 AM CDT Exam: Chest - Portable Date/Time of Exam: Apr 16, 2008 4:01:11 AM History: Please see order comments. Findings: ??Compared with 04/15/2008, endotracheal tube, left-sided central line with tip in SVC and nasogastric tube are unchanged. Low lung volumes with elevated right hemidiaphragm again noted. Areas of basilar atelectasis appears slightly improved compared to the prior study. No pleural effusion. Cardiomediastinal contours are stable. - Dictated By: ??Frederic Vieyra M.D. Electronically Signed By: ??Frederic Vieyra M.D. Date Signed: 04/16/08 Procedure Note Frederic Vieyra MD - 04/16/2008 Exam: Chest - Portable Date/Time of Exam: Apr 16, 2008 4:01:11 AM History: Please see order comments. Findings: Compared with 04/15/2008, endotracheal tube, left-sided centralline with tip in SVC and nasogastric tube are unchanged. Low lung volumes with elevated righthemidiaphragm again noted. Areas of basilar atelectasis appears slightly improved compared to the prior study.No pleural effusion. Cardiomediastinal contours are stable. - Dictated By: Frederic Vieyra M.D. Electronically Signed By: Frederic Vieyra M.D. Date Signed: 04/16/08 Riky Mejía MD DIAGNOSTIC IMAGING ORDERABL ES Final Result * (ABNORMAL) CBC WITH DIFFERENTIAL (04/16/2008 3:20 AM CDT) LYMPHOCYTES 5.4(L) 24.0 - 44.0 % [facility] MCHC 33.3 30.0 - 35.0 g/dL [facility] LYMPHOCYTE ABSOLUTE 1.1(L) 1.2 - 4.0 K/ul [facility] MCV 88.4 84.0 - 103.0 Fl [facility] MPV 10.1 8.9 - 12.8 Fl [facility] BASOPHILS ABSOLUTE 0.1 0.0 - 0.2 K/ul [facility] BASOPHILS 0.3 0.0 - 1.0 % [facility] HEMOGLOBIN 9.4(L) 12.0 - 16.0 g/dL [facility] RDW 16.2(H) 11.0 - 14.5 % [facility] MONOCYTE ABSOLUTE 0.7(H) 0.1 - 0.6 K/ul [facility] MONOCYTES 3.3 2.0 - 10.0 % [facility] WBC 19.6(H) 4.5 - 11.0 K/ul [facility] MCH 29.5 27.0 - 34.0 pg [facility] NEUTROPHIL ABSOLUTE 17.6(H) 2.0 - 8.0 K/ul [facility] NEUTROPHILS 89.9(H) 42.2 - 75.2 % [facility] HEMATOCRIT 28.2(L) 36.0 - 46.0 % [facility] EOSINOPHILS 1.1 0.0 - 7.0 % [facility] PLATELETS 292 140 - 440 K/ul [facility] PERIPHERAL BLOOD SMEAR REVIEW Automated Diff [facility] EOSINOPHIL ABSOLUTE 0.2 0.0 - 0.7 K/ul [facility] RBC 3.19(L) 4.20 - 5.40 Mil/ul [facility] Blood specimen (specimen) 04/16/2008 3:20 AM CDT 04/16/2008 3:26 AM CDT us Riky Mejía MD HEMATOLOGY ORDERABLES Final Result Performing Organization Address City/State/[facility] Co de Phone Number INTERFACE SYSTEM Refer to clinic/hospital department [facility] CLIA# [id number] [address] [place] [address] * (ABNORMAL) COMPREHENSIVE METABOLIC PANEL (04/16/2008 3:20 AM CDT) AST 58(H) 8 - 33 U/L [facility] CO2 32 22 - 32 mmol/l [facility] ALBUMIN/GLOBULIN RATIO 0.9(L) 1.0 - 2.3 [facility] ALBUMIN 2.2(L) 3.5 - 5.0 g/dL [facility] POTASSIUM 2.9(AA) 3.5 - 5.0 mEq/L [facility] Comment: Potentially critical/toxic K called by GS to JOCELYNE DILLARD, with verbal read back, at 04/16/08 04:21. ANION GAP 9 9 - 20 mEq/L [facility] CALCIUM 8.2(L) 8.4 - 10.5 mg/dL [facility] CREATININE 0.6(L) 0.7 - 1.2 mg/dL [facility] ALT 37(H) 4 - 36 IU/L [facility] GLUCOSE 148(H) 70 - 110 mg/dL [facility] CHLORIDE 98 95 - 110 mEq/L [facility] OSMOLALITY, CALCULATED 283 275 - 295 mOsm/Kg [facility] ALKALINE PHOSPHATASE 105(H) 25 - 100 U/L [facility] GLOBULIN (CALC) 2.5 2.4 - 3.9 g/dL [facility] SODIUM 136 136 - 145 mEq/L [facility] BILIRUBIN TOTAL 4.4(H) 0.3 - 1.2 mg/dL [facility] TOTAL PROTEIN 4.7(L) 6.3 - 8.2 g/dL [facility] BUN 17 7 - 17 mg/dL [facility] Blood specimen (specimen) 04/16/2008 3:20 AM CDT 04/16/2008 3:26 AM CDT us Riky Mejía MD CHEMISTRY ORDERABLES Final Result INTERFACE SYSTEM Refer to clinic/hospital department [facility] CLIA# [id number] [address] [place] [address] * (ABNORMAL) POC GLUCOSE (04/15/2008 6:36 PM CDT) GLUCOSE POC 110(H) 60 - 100 mg/dL [facility] Venous blood specimen (specimen) 04/15/2008 6:36 PM CDT 04/16/2008 6:51 AM CDT Riky Mejía MD POINT OF CARE TESTING Final Result Performing Organization Address [facility] Phone Number INTERFACE SYSTEM Refer to clinic/hospital department [facility] CLIA# [id number] [address] [place] [address] * (ABNORMAL) HEMOGLOBIN AND HEMATOCRIT (04/15/2008 4:00 PM CDT) HEMOGLOBIN 7.8(L) 12.0 - 16.0 g/dL [facility] HEMATOCRIT 24.1(L) 36.0 - 46.0 % [facility] Blood specimen (specimen) 04/15/2008 4:00 PM CDT 04/15/2008 4:00 PM CDT Riky Mejía MD HEMATOLOGY ORDERABLES Final Result Performing Organization Address [facility] Phone Number INTERFACE SYSTEM Refer to clinic/hospital department [facility] CLIA# [id number] [address] [place] [address] * (ABNORMAL) VANCOMYCIN LEVEL TROUGH (04/15/2008 9:53 AM CDT) Pathologist [facility] VANCOMYCIN, TROUGH 18.3(H) 5.0 - 15.0 mcg/mL [facility] Blood specimen (specimen) 04/15/2008 9:53 AM CDT 04/15/2008 9:53 AM CDT Riky Mejía MD CHEMISTRY ORDERABLES Final Result Performing Organization Address [facility] Phone Number INTERFACE SYSTEM Refer to clinic/hospital [facility] CLIA# [id number] [address] [place] [address] * (ABNORMAL) TRIGLYCERIDE (04/15/2008 9:53 AM CDT) TRIGLYCERIDE 435(H) 0 - 150 mg/dL [facility] Comment: On 11/10/2007, [facility] changed the triglyceride reference range to 0-150 mg/dl. ??This is the recommendation of the National Cholesterol Education Program (NCEP-ATPIII). Blood specimen (specimen) 04/15/2008 9:53 AM CDT 04/15/2008 9:53 AM CDT us Riky Mejía MD CHEMISTRY ORDERABLES Final Result INTERFACE SYSTEM Refer to clinic/hospital department [facility] CLIA# [id number] [address] [place] [address] * PROTIME-INR (04/15/2008 9:53 AM CDT) PROTIME 15.2 12.8 - 15.8 Secs [facility] Comment:As of 2007 not e change in normal range. INR 1.1 [facility] Comment: Expected Values for INR: DVT/PE ?Goal INR 2.5; range 2.0 - 3.0 Valve Replacement ? Tissue ? Goal INR 2.5; range 2.0 - 3.0 ? Mechanical ?Goal INR 3.0; range 2.5 - 3.5 POST-AK ?Goal INR 2.5; range 2.0 - 3.0 ??or Goal 3.0; range 2.5 - 3.5 Atrial Fibrillation ?Goal INR 2.5; range 2.0 - 3.0 Ischemic Stroke ?Goal INR 2.5; range 2.0 - 3.0 For additional information see Guidelines for Anticoagulation available from the pharmacy Jolene Ashley, Pharm D. ??[phone] Blood specimen (specimen) 04/15/2008 9:53 AM CDT 04/15/2008 9:53 AM CDT us Riky Mejía MD HEMATOLOGY ORDERABLES Final Result Performing Organization Address [facility] Phone Number INTERFACE SYSTEM Refer to clinic/hospital department [facility] CLIA# [id number] [address] [place] [address] * (ABNORMAL) TRANSFERRIN (04/15/2008 9:53 AM CDT) TRANSFERRIN 59.0(L) 204.0 - 376.0 mg/dL [facility] Comment: Specimen slightly hemolyzed Blood specimen (specimen) 04/15/2008 9:53 AM CDT 04/15/2008 9:53 AM CDT us Riky Mejía MD CHEMISTRY ORDERABLES Final Result Performing Organization Address [facility] Phone Number INTERFACE SYSTEM Refer to clinic/hospital department [facility] CLIA# [id number] [address] [place] [address] * (ABNORMAL) PREALBUMIN (04/15/2008 9:53 AM CDT) PREALBUMIN <5.0(L) 14.0 - 32.0 mg/dL [facility] Comment: Test Repeated; Results confirmed Blood specimen (specimen) 04/15/2008 9:53 AM CDT 04/15/2008 9:53 AM CDT Riky Mejía MD CHEMISTRY ORDERABLES Final Result Performing Organization Address [facility] Phone Number INTERFACE SYSTEM Refer to clinic/hospital [facility] CLIA# [id number] [address] [place] [address] * PHOSPHORUS (04/15/2008 9:53 AM CDT) PHOSPHORUS 3.9 2.5 - 4.6 mg/dL [facility] Blood specimen (specimen) 04/15/2008 9:53 AM CDT 04/15/2008 9:53 AM CDT Riky Mejía MD CHEMISTRY ORDERABLES Edited Performing Organization Address [facility] Phone Number INTERFACE SYSTEM Refer to clinic/hospital department [facility] CLIA# [id number] [facility] [place] [address] * (ABNORMAL) MAGNESIUM LEVEL (04/15/2008 9:53 AM CDT) MAGNESIUM 1.3(L) 1.7 - 2.4 mg/dL [facility] Blood specimen (specimen) 04/15/2008 9:53 AM CDT 04/15/2008 9:53 AM CDT us Riky Mejía MD CHEMISTRY ORDERABLES Edited Performing Organization Address [facility] Phone Number INTERFACE SYSTEM Refer to clinic/hospital department [facility] CLIA# [id number] [address] [place] [address] * (ABNORMAL) POC ISTAT EG 7+ (04/15/2008 4:13 AM CDT) PH 7.49(H) 7.35 - 7.45 Unit [facility] PO2 TEMP CORRECT 68(L) 80 - 105 mmHg [facility] O2 SATURATION 94(L) 95 - 98 % [facility] SPECIMEN TYPE Arterial [facility] Comment: Test Performed By [id number] Tidal volume: 500 PEEP: 06 Rate: 12 Pulse OX: 98 Hemoglobin calculated from Hematocrit result PCO2 TEMP CORRECT 48(H) 35 - 45 mmHg [facility] POTASSIUM 3.4(L) 3.5 - 4.9 mEq/L [facility] HEMOGLOBIN POC 9.2 +/-3 g/dL 12.0 - 16.0 g/dL [facility] PH TEMP CORRECT 7.49(H) 7.35 - 7.45 Unit [facility] TCO2 (CALC) POC 38(H) 23 - 27 mmol/l [facility] HCO3 (CALC) POC 36.7(H) 22.0 - 26.0 mmol/l [facility] FIO2 30 [facility] HEMATOCRIT ABG 27(L) 38 - 51 % [facility] PO2 68(L) 80 - 105 mmHg [facility] CALCIUM IONIZED 1.06(L) 1.12 - 1.32 mmol/l [facility] PCO2 POC 48(H) 35 - 45 mmHg [facility] BASE EXCESS 13(H) -2 - 3 mmol/l [facility] SODIUM 133(L) 138 - 146 mEq/L [facility] Arterial blood specimen (specimen) 04/15/2008 4:13 AM CDT 04/15/2008 4:27 AM CDT us Riky Mejía MD POINT OF CARE TESTING COM F inal Result INTERFACE SYSTEM Refer to clinic/hospital department [facility] CLIA# [id number] [address] [place] [phone] * XR CHEST PA OR AP (04/15/2008 4:08 AM CDT) Anatomical Region Laterality Modality Chest Other 04/15/2008 4:08 AM CDT Narrative 04/15/2008 9:42 AM CDT Exam: Chest - Portable Date/Time of Exam: Apr 15, 2008 4:08:09 AM History: Postoperative. Findings: Comparison study 04/14/08. Life support lines stable in position. Decreased lung volumes with bibasilar plate atelectasis. Cardiac silhouette stable and within normal limits. Impression: No significant change. - Dictated By: ??April Chaparro M.D. Electronically Signed By: ??April Chaparro M.D. Date Signed: 04/15/08 [facility] Procedure Note April Chaparro MD - 04/15/2008 Exam: Chest - Portable Date/Time of Exam: Apr 15, 2008 4:08:09 AM History: Postoperative. Findings: Comparison study 04/14/08. Life support lines stable in position.Decreased lung volumes with bibasilar plate atelectasis. Cardiac silhouette stable and within normallimits. Impression: No significant change. - Dictated By: April Chaparro M.D. Electronically Signed By: April Chaparro M.D. Date Signed: 04/15/08 [facility] us Heriberto Carrera MD DIAGNOSTIC IMAGING ORDERABLES Fi nal Result * (ABNORMAL) COMPREHENSIVE METABOLIC PANEL (04/15/2008 3:17 AM CDT) CALCIUM 7.9(L) 8.4 - 10.5 mg/dL [facility] CREATININE 0.6(L) 0.7 - 1.2 mg/dL [facility] ALT 40(H) 4 - 36 IU/L [facility] GLUCOSE 106 70 - 110 mg/dL [facility] CHLORIDE 95 95 - 110 mEq/L [facility] OSMOLALITY, CALCULATED 285 275 - 295 mOsm/Kg [facility] ALKALINE PHOSPHATASE 102(H) 25 - 100 U/L [facility] GLOBULIN (CALC) 2.5 2.4 - 3.9 g/dL [facility] SODIUM 137 136 - 145 mEq/L [facility] BILIRUBIN TOTAL 4.3(H) 0.3 - 1.2 mg/dL [facility] Comment: slightly icteric TOTAL PROTEIN 4.5(L) 6.3 - 8.2 g/dL [facility] BUN 20(H) 7 - 17 mg/dL [facility] AST 73(H) 8 - 33 U/L [facility] CO2 36(H) 22 - 32 mmol/l [facility] ALBUMIN/GLOBULIN RATIO 0.8(L) 1.0 - 2.3 [facility] ALBUMIN 2.0(L) 3.5 - 5.0 g/dL [facility] POTASSIUM 3.7 3.5 - 5.0 mEq/L [facility] ANION GAP 10 9 - 20 mEq/L [facility] Blood specimen (specimen) 04/15/2008 3:17 AM CDT 04/15/2008 3:36 AM CDT us Petr Carrillo MD CHEMISTRY ORDERABLES Final Re sult INTERFACE SYSTEM Refer to clinic/hospital department [facility] CLIA# [id number] [address] [place] [address] * (ABNORMAL) CBC WITH DIFFERENTIAL (04/15/2008 3:17 AM CDT) NEUTROPHIL ABSOLUTE 15.2(H) 2.0 - 8.0 K/ul [facility] HEMATOCRIT 26.7(L) 36.0 - 46.0 % [facility] PLATELETS 428 140 - 440 K/ul [facility] EOSINOPHIL ABSOLUTE 0.2 0.0 - 0.7 K/ul [facility] EOSINOPHILS 0.8 0.0 - 7.0 % [facility] PERIPHERAL BLOOD SMEAR REVIEW Automated Diff [facility] RBC 3.02(L) 4.20 - 5.40 Mil/ul [facility] MCHC 32.2 30.0 - 35.0 g/dL [facility] LYMPHOCYTE ABSOLUTE 1.3 1.2 - 4.0 K/ul [facility] LYMPHOCYTES 7.4(L) 24.0 - 44.0 % [facility] MCV 88.4 84.0 - 103.0 Fl [facility] BASOPHILS 0.5 0.0 - 1.0 % [facility] MPV 10.1 8.9 - 12.8 Fl [facility] BASOPHILS ABSOLUTE 0.1 0.0 - 0.2 K/ul [facility] HEMOGLOBIN 8.6(L) 12.0 - 16.0 g/dL [facility] MONOCYTES 5.6 2.0 - 10.0 % [facility] RDW 16.7(H) 11.0 - 14.5 % [facility] MONOCYTE ABSOLUTE 1.0(H) 0.1 - 0.6 K/ul [facility] WBC 17.7(H) 4.5 - 11.0 K/ul [facility] NEUTROPHILS 85.7(H) 42.2 - 75.2 % [facility] MCH 28.5 27.0 - 34.0 pg [facility] Blood specimen (specimen) 04/15/2008 3:17 AM CDT 04/15/2008 3:40 AM CDT us Petr Carrillo MD HEMATOLOGY ORDERABLES Final R esult Performing Organization Address City/State/[facility] Co de Phone Number INTERFACE SYSTEM Refer to clinic/hospital department [facility] CLIA# [id number] [address] [place] [address] * XR CHEST PA OR AP (04/14/2008 6:35 AM CDT) Anatomical Region Laterality Modality Chest Other 04/14/2008 6:35 AM CDT Narrative 04/14/2008 10:14 AM CDT Exam: Chest - Portable Date/Time of Exam: Apr 14, 2008 6:35:32 AM History: Post-operative. Findings: Comparison study is dated 04/13/2008. There is an endotracheal tube present at the level of the clavicles. There is a nasogastric tube with the tip projecting over the stomach. There is a left subclavian line with the tip projected over the proximal superior vena cava. The cardiac silhouette is within normal limits. There is mild central vascular congestion. There are low lung volumes. There is a right basilar opacity reflecting atelectasis and/or infiltrate, but this has slightly improved. The pulmonary edema has slightly improved when compared to the prior study. There is evidence of granulomatous disease. Summary: 1. Lines and tubes as described. 2. Persistent vascular congestion, but improving pulmonary edema. 3. Persistent, but improving right basilar opacity may reflect atelectasis and/or infiltrate. 4. Granulomatous disease. - Dictated By: ??Ari Ly Jr., M.D. Electronically Signed By: ??Ari Ly Jr., M.D. Date Signed: 04/14/08 [facility] Procedure Note Ari Ly Jr. - 04/14/2008 Exam: Chest - Portable Date/Time of Exam: Apr 14, 2008 6:35:32 AM History: Post-operative. Findings: Comparison study is dated 04/13/2008. There is an endotracheal tube present at the level of the clavicles. Thereis a nasogastric tube with the tip projecting over the stomach. There is a left subclavian line with thetip projected over the proximal superior vena cava. The cardiac silhouette is within normallimits. There is mild central vascular congestion. There are low lung volumes. There is a right basilaropacity reflecting atelectasis and/or infiltrate, but this has slightly improved. The pulmonary edema hasslightly improved when compared to the prior study. There is evidence of granulomatous disease. Summary: 1. Lines and tubes as described. 2. Persistent vascular congestion, but improving pulmonary edema. 3. Persistent, but improving right basilar opacity may reflect atelectasisand/or infiltrate. 4. Granulomatous disease. - Dictated By: Ari Ly Jr., M.D. Electronically Signed By: Ari Ly Jr., M.D. Date Signed: 04/14/08 [facility] Riky Mejía MD DIAGNOSTIC IMAGING ORDERABL ES Final Result * (ABNORMAL) POC ISTAT EG 7+ (04/14/2008 3:23 AM CDT) SODIUM 134(L) 138 - 146 mEq/L [facility] PH 7.60(AA) 7.35 - 7.45 Unit [facility] PO2 TEMP CORRECT 92 80 - 105 mmHg [facility] O2 SATURATION 98 95 - 98 % [facility] SPECIMEN TYPE Arterial [facility] Comment: Test Performed By [id number] Critical result performed at the point of care. Pulse OX: 98 Hemoglobin calculated from Hematocrit result PCO2 TEMP CORRECT 41 35 - 45 mmHg [facility] POTASSIUM 3.9 3.5 - 4.9 mEq/L [facility] HEMOGLOBIN POC 10.9 +/-3 g/dL 12.0 - 16.0 g/dL [facility] PH TEMP CORRECT 7.60(AA) 7.35 - 7.45 Unit [facility] TCO2 (CALC) POC 41(H) 23 - 27 mmol/l [facility] HCO3 (CALC) POC 39.9(H) 22.0 - 26.0 mmol/l [facility] FIO2 45 [facility] HEMATOCRIT ABG 32(L) 38 - 51 % [facility] PO2 92 80 - 105 mmHg [facility] CALCIUM IONIZED 1.03(L) 1.12 - 1.32 mmol/l [facility] PCO2 POC 41 35 - 45 mmHg [facility] BASE EXCESS 18(H) -2 - 3 mmol/l [facility] Arterial blood specimen (specimen) 04/14/2008 3:23 AM CDT 04/14/2008 5:44 AM CDT us Riky Mejía MD POINT OF CARE TESTING COM F inal Result INTERFACE SYSTEM Refer to clinic/hospital department [facility] CLIA# [id number] [address] [place] [address] * (ABNORMAL) DIFFERENTIAL, MANUAL (04/14/2008 1:37 AM CDT) NEUTROPHILS, SEG 57 36 - 66 % [facility] METAMYELOCYTE 1 0 - 1 % [facility] POIKILOCYTES 1+(A) None Seen [facility] MONOCYTE 5 4 - 10 % [facility] RBC MORPHOLOGY Abnormal(A ) Normal [facility] BANDS 27(H) 0 - 6 % [facility] POLYCHROMASIA Present(A) None Seen [facility] MYELOCYTES 1 <=1 % [facility] EOSINOPHILS 1 0 - 3 % [facility] ANISOCYTOSIS 1+(A) None Seen [facility] LYMPHOCYTES 8(L) 24 - 44 % [facility] PLATELET EST. Normal Normal [facility] Comment: OCC PLATELET CLUMPS NOTED ON REVIEW OF SMEAR. Blood specimen (specimen) 04/14/2008 1:37 AM CDT 04/14/2008 1:40 AM CDT Narrative INTERFACE SYSTEM - 04/14/2008 2:01 AM CDT Differential ordered by policy. Riky Mejía MD HEMATOLOGY ORDERABLES COM F inal Result INTERFACE SYSTEM Refer to clinic/hospital department [facility] CLIA# [id number] [address] [place] [address] * (ABNORMAL) BASIC METABOLIC PANEL (04/14/2008 1:37 AM CDT) CALCIUM 8.1(L) 8.4 - 10.5 mg/dL [facility] GLUCOSE 108 70 - 110 mg/dL [facility] CHLORIDE 95 95 - 110 mEq/L [facility] ANION GAP 8(L) 9 - 20 mEq/L [facility] SODIUM 137 136 - 145 mEq/L [facility] BUN 26(H) 7 - 17 mg/dL [facility] CO2 38(H) 22 - 32 mmol/l [facility] POTASSIUM 4.1 3.5 - 5.0 mEq/L [facility] OSMOLALITY, CALCULATED 288 275 - 295 mOsm/Kg [facility] CREATININE 0.8 0.7 - 1.2 mg/dL [facility] Blood specimen (specimen) 04/14/2008 1:37 AM CDT 04/14/2008 1:40 AM CDT Riky Mejía MD CHEMISTRY ORDERABLES Final Result Performing Organization Address [facility] Phone Number INTERFACE SYSTEM Refer to clinic/hospital department [facility] CLIA# [id number] [address] [place] [address] * (ABNORMAL) CBC WITH DIFFERENTIAL (04/14/2008 1:37 AM CDT) HEMATOCRIT 33.4(L) 36.0 - 46.0 % [facility] PLATELETS 429 140 - 440 K/ul [facility] RBC 3.77(L) 4.20 - 5.40 Mil/ul [facility] MCHC 33.2 30.0 - 35.0 g/dL [facility] MPV 10.1 8.9 - 12.8 Fl [facility] MCV 88.6 84.0 - 103.0 Fl [facility] HEMOGLOBIN 11.1(L) 12.0 - 16.0 g/dL [facility] RDW 16.4(H) 11.0 - 14.5 % [facility] WBC 16.6(H) 4.5 - 11.0 K/ul [facility] MCH 29.4 27.0 - 34.0 pg [facility] Blood specimen (specimen) 04/14/2008 1:37 AM CDT 04/14/2008 1:40 AM CDT us Riky Mejía MD HEMATOLOGY ORDERABLES Edite d Performing Organization Address [facility] de Phone Number INTERFACE SYSTEM Refer to clinic/hospital department [facility] CLIA# [id number] [address] [place] [address] * LACTIC ACID (04/13/2008 9:12 PM CDT) LACTIC ACID 1.4 0.5 - 2.2 mEq/L [facility] Blood specimen (specimen) 04/13/2008 9:12 PM CDT 04/13/2008 9:18 PM CDT Riky Mejía MD CHEMISTRY ORDERABLES Final Result INTERFACE SYSTEM Refer to clinic/hospital department [facility] CLIA# [id number] [address] [place] [address] * (ABNORMAL) POC ISTAT EG 7+ (04/13/2008 8:41 PM CDT) POTASSIUM 3.8 3.5 - 4.9 mEq/L [facility] PH TEMP CORRECT 7.51(H) 7.35 - 7.45 Unit [facility] HCO3 (CALC) POC 43.9(H) 22.0 - 26.0 mmol/l [facility] TCO2 (CALC) POC 46(H) 23 - 27 mmol/l [facility] FIO2 55 [facility] PO2 129(H) 80 - 105 mmHg [facility] CALCIUM IONIZED 1.05(L) 1.12 - 1.32 mmol/l [facility] HEMATOCRIT ABG 36(L) 38 - 51 % [facility] PCO2 POC 56(H) 35 - 45 mmHg [facility] SODIUM 135(L) 138 - 146 mEq/L [facility] BASE EXCESS 21(H) -2 - 3 mmol/l [facility] PH 7.51(H) 7.35 - 7.45 Unit [facility] O2 SATURATION 99(H) 95 - 98 % [facility] PO2 TEMP CORRECT 129(H) 80 - 105 mmHg [facility] SPECIMEN TYPE Arterial [facility] Comment: Test Performed By [id number] PEEP: 10 Rate: 12 Pulse OX: 100 Hemoglobin calculated from Hematocrit result PCO2 TEMP CORRECT 56(H) 35 - 45 mmHg [facility] HEMOGLOBIN POC 12.2 +/-3 g/dL 12.0 - 16.0 g/dL [facility] Arterial blood specimen (specimen) 04/13/2008 8:41 PM CDT 04/13/2008 8:44 PM CDT Riky Mejía MD POINT OF CARE TESTING COM F inal Result Performing Organization Address [facility] de Phone Number INTERFACE SYSTEM Refer to clinic/hospital department [facility] CLIA# [id number] [address] [place] [address] * (ABNORMAL) POC GLUCOSE (04/13/2008 8:33 PM CDT) GLUCOSE POC 115(H) 60 - 100 mg/dL [facility] Venous blood specimen (specimen) 04/13/2008 8:33 PM CDT 04/14/2008 5:56 AM CDT Riky Mejía MD POINT OF CARE TESTING Final Result Performing Organization Address [facility] Phone Number INTERFACE SYSTEM Refer to clinic/hospital department [facility] CLIA# [id number] [address] [place] [address] * (ABNORMAL) BASIC METABOLIC PANEL (04/13/2008 7:58 PM CDT) GLUCOSE 118(H) 70 - 110 mg/dL [facility] CHLORIDE 94(L) 95 - 110 mEq/L [facility] ANION GAP <9 9 - 20 mEq/L [facility] SODIUM 139 136 - 145 mEq/L [facility] BUN 17 7 - 17 mg/dL [facility] CO2 >40(H) 22 - 32 mmol/l [facility] POTASSIUM 3.9 3.5 - 5.0 mEq/L [facility] OSMOLALITY, CALCULATED 288 275 - 295 mOsm/Kg [facility] CREATININE 0.5(L) 0.7 - 1.2 mg/dL [facility] CALCIUM 8.4 8.4 - 10.5 mg/dL [facility] Blood specimen (specimen) 04/13/2008 7:58 PM CDT 04/13/2008 8:01 PM CDT Riky Mejía MD CHEMISTRY ORDERABLES Final Result INTERFACE SYSTEM Refer to clinic/hospital department [facility] CLIA# [id number] [address] [place] [address] * (ABNORMAL) CBC WITH DIFFERENTIAL (04/13/2008 7:58 PM CDT) MCV 91.0 84.0 - 103.0 Fl [facility] MPV 10.3 8.9 - 12.8 Fl [facility] BASOPHILS ABSOLUTE 0.1 0.0 - 0.2 K/ul [facility] BASOPHILS 0.4 0.0 - 1.0 % [facility] HEMOGLOBIN 11.6(L) 12.0 - 16.0 g/dL [facility] RDW 16.6(H) 11.0 - 14.5 % [facility] MONOCYTE ABSOLUTE 0.7(H) 0.1 - 0.6 K/ul [facility] MONOCYTES 4.2 2.0 - 10.0 % [facility] WBC 16.1(H) 4.5 - 11.0 K/ul [facility] MCH 29.7 27.0 - 34.0 pg [facility] NEUTROPHIL ABSOLUTE 14.1(H) 2.0 - 8.0 K/ul [facility] NEUTROPHILS 87.4(H) 42.2 - 75.2 % [facility] HEMATOCRIT 35.6(L) 36.0 - 46.0 % [facility] EOSINOPHILS 0.9 0.0 - 7.0 % [facility] PLATELETS 430 140 - 440 K/ul [facility] EOSINOPHIL ABSOLUTE 0.1 0.0 - 0.7 K/ul [facility] RBC 3.91(L) 4.20 - 5.40 Mil/ul [facility] LYMPHOCYTES 7.1(L) 24.0 - 44.0 % [facility] MCHC 32.6 30.0 - 35.0 g/dL [facility] LYMPHOCYTE ABSOLUTE 1.1(L) 1.2 - 4.0 K/ul [facility] Blood specimen (specimen) 04/13/2008 7:58 PM CDT 04/13/2008 8:01 PM CDT us Riky Mejía MD HEMATOLOGY ORDERABLES Final Result Performing Organization Address City/State/[facility] Co de Phone Number INTERFACE SYSTEM Refer to clinic/hospital department [facility] CLIA# [id number] [address] [place] [address] * XR CHEST PA OR AP (04/13/2008 7:26 PM CDT) Anatomical Region Laterality Modality Chest Other 04/13/2008 7:26 PM CDT Narrative 04/13/2008 8:13 PM CDT Exam: Chest - Portable Date/Time of Exam: Apr 13, 2008 7:26:05 PM History: Post-operative. Findings: AP compared to April 06, 2008 shows an endotracheal tube with the distal tip at the level of the clavicles, a nasogastric tube that extends into the stomach, and multiple other radiopaque tubes and lines that overlie the [id number]. There is vascular congestion, and there is likely a right lower lobe infiltrate that obscures the right diaphragm. - Dictated By: ??Riky Jarvis M.D. Electronically Signed By: ??Riky Jarvis M.D. Date Signed: 04/13/08 Procedure Note Riky Jarvis - 04/13/2008 Exam: Chest - Portable Date/Time of Exam: Apr 13, 2008 7:26:05 PM History: Post-operative. Findings: AP compared to April 06, 2008 shows an endotracheal tubewith the distal tip at the level of the clavicles, a nasogastric tube that extends into the stomach, andmultiple other radiopaque tubes and lines that overlie the [id number]. There is vascular congestion,and there is likely a right lower lobe infiltrate that obscures the right diaphragm. - Dictated By: Riky Jarvis M.D. Electronically Signed By: Riky Jarvis M.D. Date Signed: 04/13/08 us Riky Mejía MD DIAGNOSTIC IMAGING ORDERABL ES Final Result * (ABNORMAL) POC ISTAT EG 7+ (04/13/2008 6:02 PM CDT) TEMPERATURE 37.9 DegC [facility] PO2 138(H) 80 - 105 mmHg [facility] CALCIUM IONIZED 1.06(L) 1.12 - 1.32 mmol/l [facility] HEMATOCRIT ABG 29(L) 38 - 51 % [facility] SPECIMEN TYPE Arterial [facility] Comment: Test Performed By [id number] Critical result performed at the point of care. Sample not collected by [facility] Hemoglobin calculated from Hematocrit result PCO2 POC 39 35 - 45 mmHg [facility] SODIUM 134(L) 138 - 146 mEq/L [facility] BASE EXCESS 27(H) -2 - 3 mmol/l [facility] PH 7.69(AA) 7.35 - 7.45 Unit [facility] O2 SATURATION 100(H) 95 - 98 % [facility] PO2 TEMP CORRECT 144(H) 80 - 105 mmHg [facility] FIO2 100 [facility] HEMOGLOBIN POC 9.9 +/-3 g/dL 12.0 - 16.0 g/dL [facility] PCO2 TEMP CORRECT 41 35 - 45 mmHg [facility] POTASSIUM 3.3(L) 3.5 - 4.9 mEq/L [facility] PH TEMP CORRECT 7.67(AA) 7.35 - 7.45 Unit [facility] HCO3 (CALC) POC 47.0(H) 22.0 - 26.0 mmol/l [facility] TCO2 (CALC) POC 48(H) 23 - 27 mmol/l [facility] Arterial blood specimen (specimen) 04/13/2008 6:02 PM CDT 04/13/2008 6:19 PM CDT Riky Mejía MD POINT OF CARE TESTING COM F inal Result Performing Organization Address [facility] Phone Number INTERFACE SYSTEM Refer to clinic/hospital department [facility] CLIA# [id number] [address] [place] [address] * LACTIC ACID (04/13/2008 5:36 PM CDT) [facility] LACTIC ACID 1.5 0.5 - 2.2 mEq/L [facility] Blood specimen (specimen) 04/13/2008 5:36 PM CDT 04/13/2008 5:36 PM CDT Riky Mejía MD CHEMISTRY ORDERABLES Final Result Performing Organization Address [facility] Phone Number INTERFACE SYSTEM Refer to clinic/hospital department [facility] CLIA# [id number] [facility] [place] [address] * TYPE AND CROSSMATCH (04/13/2008 5:34 PM CDT) [facility] BLOOD BANK PRODUCT INTERFACE SYSTEM Blood specimen (specimen) 04/13/2008 5:34 PM CDT 04/13/2008 5:34 PM CDT Riky Mejía MD BLOOD BANK ORDERABLES Final Result Performing Organization Address [facility] de Phone Number INTERFACE SYSTEM Refer to clinic/hospital department * ANTIBODY SCREEN (04/13/2008 5:34 PM CDT) ANTIBODY SCREEN Negative [facility] Blood specimen (specimen) 04/13/2008 5:34 PM CDT 04/13/2008 5:34 PM CDT Riky Mejía MD BLOOD BANK ORDERABLES Edite d Performing Organization Address [facility] de Phone Number INTERFACE SYSTEM Refer to clinic/hospital department [facility] CLIA# [id number] [address] [place] [address] * ABORH TYPING (04/13/2008 5:34 PM CDT) ABO/RH TYPE O Positive [facility] Blood specimen (specimen) 04/13/2008 5:34 PM CDT 04/13/2008 5:34 PM CDT Riky Mejía MD BLOOD BANK ORDERABLES Final Result Performing Organization Address [facility] Phone Number INTERFACE SYSTEM Refer to clinic/hospital department [facility] CLIA# [id number] [address] [place] [address] * (ABNORMAL) BASIC METABOLIC PANEL (04/13/2008 5:29 PM CDT) CREATININE 0.6(L) 0.7 - 1.2 mg/dL [facility] CALCIUM 8.4 8.4 - 10.5 mg/dL [facility] GLUCOSE 118(H) 70 - 110 mg/dL [facility] CHLORIDE 91(L) 95 - 110 mEq/L [facility] SODIUM 141 136 - 145 mEq/L [facility] ANION GAP <14 9 - 20 mEq/L [facility] BUN 16 7 - 17 mg/dL [facility] CO2 >40(H) 22 - 32 mmol/l [facility] OSMOLALITY, CALCULATED 291 275 - 295 mOsm/Kg [facility] POTASSIUM 3.7 3.5 - 5.0 mEq/L [facility] Blood specimen (specimen) 04/13/2008 5:29 PM CDT 04/13/2008 5:30 PM CDT Narrative INTERFACE SYSTEM - 04/13/2008 6:20 PM CDT OR 9 us Riky Mejía MD CHEMISTRY ORDERABLES Final Result INTERFACE SYSTEM Refer to clinic/hospital department [facility] CLIA# [id number] [address] [place] [address] * PT AND APTT (04/13/2008 5:29 PM CDT) INR 1.1 [facility] Comment: Expected Values for INR: DVT/PE ?Goal INR 2.5; range 2.0 - 3.0 Valve Replacement ? Tissue ? Goal INR 2.5; range 2.0 - 3.0 ? Mechanical ?Goal INR 3.0; range 2.5 - 3.5 POST-AK ?Goal INR 2.5; range 2.0 - 3.0 ??or Goal 3.0; range 2.5 - 3.5 Atrial Fibrillation ?Goal INR 2.5; range 2.0 - 3.0 Ischemic Stroke ?Goal INR 2.5; range 2.0 - 3.0 For additional information see Guidelines for Anticoagulation available from the pharmacy [facility]. ??[phone] PTT 33.1 22.5 - 36.5 Secs [facility] Comment: Therapeutic Range: ?? Hi-level PE/DVT heparin protocol 80.1 -95.0 ??sec ? Lo-level PE/DVT ??heparin protocol ??67.1 - ??80.0 sec ?? Cardiac Heparin Protocol 67.1 - 85.0 sec ?? Neuro Heparin Protocol 67.1 - 80.0 sec As of 09/25/2007 note change in APTT Normal Range. PROTIME 15.3 12.8 - 15.8 Secs [facility] Comment:As of 2007 not e change in normal range. Blood specimen (specimen) 04/13/2008 5:29 PM CDT 04/13/2008 5:30 PM CDT Narrative INTERFACE SYSTEM - 04/13/2008 5:48 PM CDT OR 9 us Riky Mejía MD HEMATOLOGY ORDERABLES Edite d INTERFACE SYSTEM Refer to clinic/hospital department [facility] CLIA# [id number] [facility] [place] [address] * (ABNORMAL) CBC WITH DIFFERENTIAL (04/13/2008 5:29 PM CDT) MCV 90.1 84.0 - 103.0 Fl [facility] BASOPHILS 0.3 0.0 - 1.0 % [facility] MPV 10.2 8.9 - 12.8 Fl [facility] BASOPHILS ABSOLUTE 0.0 0.0 - 0.2 K/ul [facility] HEMOGLOBIN 9.4(L) 12.0 - 16.0 g/dL [facility] MONOCYTES 4.3 2.0 - 10.0 % [facility] RDW 17.1(H) 11.0 - 14.5 % [facility] MONOCYTE ABSOLUTE 0.5 0.1 - 0.6 K/ul [facility] WBC 11.8(H) 4.5 - 11.0 K/ul [facility] NEUTROPHILS 81.9(H) 42.2 - 75.2 % [facility] MCH 29.0 27.0 - 34.0 pg [facility] NEUTROPHIL ABSOLUTE 9.7(H) 2.0 - 8.0 K/ul [facility] HEMATOCRIT 29.2(L) 36.0 - 46.0 % [facility] PLATELETS 414 140 - 440 K/ul [facility] EOSINOPHIL ABSOLUTE 0.2 0.0 - 0.7 K/ul [facility] EOSINOPHILS 1.4 0.0 - 7.0 % [facility] RBC 3.24(L) 4.20 - 5.40 Mil/ul [facility] MCHC 32.2 30.0 - 35.0 g/dL [facility] LYMPHOCYTE ABSOLUTE 1.4 1.2 - 4.0 K/ul [facility] LYMPHOCYTES 12.1(L) 24.0 - 44.0 % [facility] Blood specimen (specimen) 04/13/2008 5:29 PM CDT 04/13/2008 5:29 PM CDT Narrative INTERFACE SYSTEM - 04/13/2008 5:35 PM CDT OR 9 us Riky Mejía MD HEMATOLOGY ORDERABLES Final Result INTERFACE SYSTEM Refer to clinic/hospital department [facility] CLIA# [id number] [address] [place] [id number] * (ABNORMAL) POC ISTAT EG 7+ (04/13/2008 5:26 PM CDT) PH 7.68(AA) 7.35 - 7.45 Unit [facility] O2 SATURATION 100(H) 95 - 98 % [facility] PO2 TEMP CORRECT 174(H) 80 - 105 mmHg [facility] FIO2 100 [facility] HEMOGLOBIN POC 9.5 +/-3 g/dL 12.0 - 16.0 g/dL [facility] PCO2 TEMP CORRECT 47(H) 35 - 45 mmHg [facility] POTASSIUM 3.5 3.5 - 4.9 mEq/L [facility] PH TEMP CORRECT 7.67(AA) 7.35 - 7.45 Unit [facility] HCO3 (CALC) POC 53.2(H) 22.0 - 26.0 mmol/l [facility] TCO2 (CALC) POC >50(H) 23 - 27 mmol/l [facility] TEMPERATURE 37.8 DegC [facility] PO2 170(H) 80 - 105 mmHg [facility] CALCIUM IONIZED 0.95(L) 1.12 - 1.32 mmol/l [facility] HEMATOCRIT ABG 28(L) 38 - 51 % [facility] SPECIMEN TYPE Arterial [facility] Comment: Test Performed By [id number] Critical result performed at the point of care. Sample not collected by [facility] Hemoglobin calculated from Hematocrit result PCO2 POC 45 35 - 45 mmHg [facility] SODIUM 135(L) 138 - 146 mEq/L [facility] BASE EXCESS >30(H) -2 - 3 mmol/l [facility] Arterial blood specimen (specimen) 04/13/2008 5:26 PM CDT 04/13/2008 5:34 PM CDT Riky Mejía MD POINT OF CARE TESTING COM F inal Result Performing Organization Address [facility] de Phone Number INTERFACE SYSTEM Refer to clinic/hospital department [facility] CLIA# [id number] [address] [place] [id number] * MRSA CULTURE (04/13/2008 4:30 PM CDT) FINAL REPORT Culture screen for MRSA negative INTERFACE SYSTEM 04/13/2008 4:30 PM CDT 04/13/2008 6:57 PM CDT Riky Mejía MD MICROBIOLOGY - GENERAL [place] ATKINSON Final Result Performing Organization Address [facility] Phone Number INTERFACE SYSTEM Refer to clinic/hospital department documented in this encounter Visit Diagnoses Not on filedocumented in this encounter Additional Health Concerns Infection Onset Date Last Indicated Resolved Time MRSA Comment:Kapil 10/26/15 10/27/2015 10/27/2015 documented as of this encounter Care Teams Body Presser Relationship Specialty Start Date End Date Jose Bowers MD [address] [place] [address] PCP - General 12/31/05 documented as of this encounter
--- OUTSIDE RECORDS SUMMARY | 2024-08-18 18:45 | XMS_ITS | Encounter Summary ---
Author Organization [facility] Address [address] [place] [address] Care Team Providers Care Armature And Rotor Winder Name Role Phone Jose Bowers MD Primary Care Provider Unavailab le Encounter Details Date Type Department Care Team (Late st Contact Info) Description 01/30/2007 Outpatient Historical [facility] Physical Med and Rehab- [place] [address] [place] [phone] Jose Bowers MD [address] [place] [address] Paraplegia (CMS/HCC) (Primary Dx) Social History Tobacco Use Types Packs/Day Years Used Date Smoking Tobacco: Never Assessed Comments Unknown Sex and Gender Information Value Date Recorded Sex Assigned at Not on file Legal Sex Female 6:28 AM FELT CEMENTER Gender Identity Not on file Sexual Orientation Not on file documented as of this encounter Plan of Treatment Not on file documented as of this encounter Visit Diagnoses Diagnosis Paraplegia (CMS/HCC)- Primary Paraplegia documented in this encounter Additional Health Concerns Infection Onset Date Last Indicated Resolved Time MRSA Comment:Kapil 10/26/15 10/27/2015 10/27/2015 documented as of this encounter Care Teams Armature And Rotor Winder Relationship Specialty Start Date End Date Jose Bowers MD [address] [place] [address] PCP - General 12/31/05 documented as of this encounter
--- OUTSIDE RECORDS SUMMARY | 2024-08-18 18:45 | XMS_ITS | Encounter Summary ---
Author Organization [facility] Address [address] [place] [address] Care Team Providers Care Air Conditioner Installer Helper Name Role Phone Jose Bowers MD Primary Care Provider Unavailab le Encounter Details Date Type Department Care Team (Latest Contact Info) Description 07/24/2006 Outpatient Historical [facility] [address] [place] [phone] Delmar Snow MD [address] [phone] Paraplegia (CMS/HCC) (Primary Dx) Social History Tobacco Use Types Packs/Day Years Used Date Smoking Tobacco: Never Assessed Comments Unknown Sex and Gender Information Value Date Recorded Sex Assigned at Not on file Legal Sex Female 6:28 AM SUPERVISOR CARTON AND CAN SUPPLY Gender Identity Not on file Sexual Orientation Not on file documented as of this encounter Plan of Treatment Not on file documented as of this encounter Visit Diagnoses Diagnosis Paraplegia (CMS/HCC)- Primary Paraplegia documented in this encounter Additional Health Concerns Infection Onset Date Last Indicated Resolved Time MRSA Comment:Kapil 10/26/15 10/27/2015 10/27/2015 documented as of this encounter Care Teams Air Conditioner Installer Helper Relationship Specialty Start Date End Date Jose Bowers MD [address] [place] [address] PCP - General 12/31/05 documented as of this encounter
--- OUTSIDE RECORDS SUMMARY | 2024-08-18 18:45 | XMS_ITS | Encounter Summary ---
Author Organization [facility] Address [address] [place] [address] Care Team Providers Care Roundhouse Supervisor Name Role Phone Jose Bowers MD Primary Care Provider Unavailab le Encounter Details Date Type Department Care Team (Late st Contact Info) Description 04/15/2006 Outpatient Historical [facility] Physical Med and Rehab- [place] [address] [place] [phone] Jose Bowers MD [address] [place] [address] Paraplegia (CMS/HCC) (Primary Dx) Social History Tobacco Use Types Packs/Day Years Used Date Smoking Tobacco: Never Assessed Comments Unknown Sex and Gender Information Value Date Recorded Sex Assigned at Not on file 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 Sex Female 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
--- OUTSIDE RECORDS SUMMARY | 2024-08-18 18:45 | XMS_ITS | Encounter Summary ---
Author Organization [facility] Address [address] [place] [address] Care Team Providers Care Supervisor Roller Printing Name Role Phone Jose Bowers MD Primary Care Provider Unavailab le Encounter Details Date Type Department Care Team (Late st Contact Info) Description 07/24/2006 Outpatient [facility] Physical Med and Rehab- [place] [address] [place] [phone] Jose Bowers MD [address] [place] [address] Paraplegia (CMS/HCC) (Primary Dx); Difficulty in Walking; Pain in Limb Social History Tobacco Use Types Packs/Day Years Used Date Smoking Tobacco: Never Assessed Comments Unknown Sex and Gender Information Value Date Recorded Sex Assigned at Not on file Legal Sex Female 6:28 AM MOTION PICTURE PHOTOGRAPHER Gender Identity Not on file Sexual Orientation Not on file documented as of this encounter Plan of Treatment Not on file documented as of this encounter Visit Diagnoses Diagnosis Paraplegia (CMS/HCC)- Primary Paraplegia Difficulty in walking(719.7) Difficulty in walking Pain in limb Pain in soft tissues of limb documented in this encounter Additional Health Concerns Infection Onset Date Last Indicated Resolved Time MRSA Comment:Kapil 10/26/15 10/27/2015 10/27/2015 documented as of this encounter Care Teams Supervisor Roller Printing Relationship Specialty Start Date End Date Jose Bowers MD [address] [place] [address] PCP - General 12/31/05 documented as of this encounter
--- OUTSIDE RECORDS SUMMARY | 2024-08-18 18:45 | XMS_ITS | Encounter Summary ---
Author Organization [facility] Address [address] [place] [address] Care Team Providers Care Musical Instrument Maker Or Repairer Name Role Phone Jose Bowers MD Primary Care Provider Unavailab le Encounter Details Date Type Department Care Team (Latest Contact Info) Description 08/30/2006 Outpatient Historical [facility] Services [address] [place] [phone] Jose Bowers MD [address] [place] [address] Pain in Joint, Pelvic Region and Thigh (Primary Dx) Social History Tobacco Use Types Packs/Day Years Used Date Smoking Tobacco: Never Assessed Comments Unknown Sex and Gender Information Value Date Recorded Sex Assigned at Not on file Legal Sex Female 6:28 AM SOUS CHEF Gender Identity Not on file Sexual Orientation Not on file documented as of this encounter Plan of Treatment Not on file documented as of this encounter Procedures Procedure Name Priority Date/Time Associated Diagnosis Comments CBC WITH DIFFERENTIAL Routine 08/30/2006 12:42 PM SOUS CHEF SEDIMENTATION RATE Routine 08/30/2006 12 :42 PM SOUS CHEF CK Routine 08/30/2006 12:42 PM SOUS CHEF documented in this encounter Results * (ABNORMAL) CK (08/30/2006 12:42 PM SOUS CHEF) CK 201(H) 26 - 140 U/L INTERFACE SYSTEM Comment: As of 05 the [facility] has changed testing methods. ?? The new reference ranges are Males 38-174 ? Females 26-140 The old referance ranges were Males 0-155 ?Females 0-133 08/30/2006 12:4 2 PM SOUS CHEF us Jose Bowers MD CHEMISTRY ORDERABLES Edited INTERFACE SYSTEM Refer to clinic/hospital department * (ABNORMAL) CBC WITH DIFFERENTIAL (08/30/2006 12:42 PM SOUS CHEF) WBC 5.1 4.5 - 11.0 K/ul INTERFACE SYSTEM RBC 4.41 4.20 - 5.40 Mil/ul INTERFACE SYSTEM HEMOGLOBIN 13.6 12.0 - 16.0 g/dL INTERFACE SYSTEM HEMATOCRIT 40.8 36.0 - 46.0 % INTERFACE SYSTEM MCV 92.5 84.0 - 103.0 Fl INTERFACE SYSTEM MCH 30.8 27.0 - 34.0 pg INTERFACE SYSTEM MCHC 33.3 30.0 - 35.0 g/dL INTERFACE SYSTEM RDW 13.2 11.0 - 14.5 % INTERFACE SYSTEM PLATELETS 199 140 - 440 K/ul INTERFACE SYSTEM MPV 10.9 8.9 - 12.8 Fl INTERFACE SYSTEM NEUTROPHILS 61.6 42.2 - 75.2 % INTERFACE SYSTEM LYMPHOCYTES 21.0(L) 24.0 - 44.0 % INTERFACE SYSTEM MONOCYTES 11.7(H) 2.0 - 10.0 % INTERFACE SYSTEM EOSINOPHILS 5.1 0.0 - 7.0 % INTERFACE SYSTEM BASOPHILS 0.6 0.0 - 1.0 % INTERFACE SYSTEM NEUTROPHIL ABSOLUTE 3.1 2.0 - 8.0 K/uL INTERFACE SYSTEM LYMPHOCYTE ABSOLUTE 1.1(L) 1.2 - 4.0 K/ul INTERFACE SYSTEM MONOCYTE ABSOLUTE 0.6 0.1 - 0.6 K/ul INTERFACE SYSTEM EOSINOPHIL ABSOLUTE 0.3 0.0 - 0.7 K/ul INTERFACE SYSTEM BASOPHILS ABSOLUTE 0.0 0.0 - 0.2 K/ul INTERFACE SYSTEM 08/30/2006 12:4 2 PM SOUS CHEF Jose Bowers MD HEMATOLOGY ORDERABLES Edited Performing Organization Address [facility] Co de Phone Number INTERFACE SYSTEM Refer to clinic/hospital department * (ABNORMAL) SEDIMENTATION RATE (08/30/2006 12:42 PM SOUS CHEF) ESR (SEDIMENTATION RATE) 27(H) 0 - 22 mm/hr INTERFACE SYSTEM 08/30/2006 12:4 2 PM SOUS CHEF Jose Bowers MD HEMATOLOGY ORDERABLES Edited Performing Organization Address [facility] de Phone Number INTERFACE SYSTEM Refer to clinic/hospital department documented in this encounter Visit Diagnoses Diagnosis Pain in joint, pelvic region and thigh- Primary documented in this encounter Additional Health Concerns Infection Onset Date Last Indicated Resolved Time MRSA Comment:Kapil 10/26/15 10/27/2015 10/27/2015 documented as of this encounter Care Teams Musical Instrument Maker Or Repairer Relationship Specialty Start Date End Date Jose Bowers MD [address] [place] [address] PCP - General 12/31/05 documented as of this encounter
--- OUTSIDE RECORDS SUMMARY | 2024-08-18 18:45 | XMS_ITS | Encounter Summary ---
Author Organization [facility] Address [address] [place] [address] Care Team Providers Care Brake Tester Name Role Phone Jose Bowers MD Primary Care Provider Unavailab le Encounter Details Date Type Department Care Team (Late st Contact Info) Description 12/31/2006 Outpatient Historical [facility] Physical Med and Rehab- [place] [address] [place] [phone] Jose Bowers MD [address] [place] [address] Paraplegia (CMS/HCC) (Primary Dx) Social History Tobacco Use Types Packs/Day Years Used Date Smoking Tobacco: Never Assessed Comments Unknown Sex and Gender Information Value Date Recorded Sex Assigned at Not on file Legal Sex Female 6:28 AM COMMUNITY 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 Gender Identity Not on file Sexual Orientation Not on file documented as of this encounter Plan of Treatment Not on file documented as of this encounter Visit Diagnoses Diagnosis Paraplegia (CMS/HCC)- Primary Paraplegia documented in this encounter Additional Health Concerns Infection Onset Date Last Indicated Resolved Time MRSA Comment:Kapil 10/26/15 10/27/2015 10/27/2015 documented as of this encounter Care Teams Brake Tester Relationship Specialty Start Date End Date Jose Bowers MD [address] [place] [address] PCP - General 12/31/05 documented as of this encounter
--- OUTSIDE RECORDS SUMMARY | 2024-08-18 18:45 | XMS_ITS | Encounter Summary ---
Author Organization [facility] Address [address] [place] [address] Care Team Providers Care Cutter First Name Role Phone Jose Bowers MD Primary Care Provider Unavailab le Encounter Details Date Type Department Care Team (Late st Contact Info) Description 11/01/2005 Outpatient Historical [facility] Physical Med and Rehab- [place] [address] [place] [phone] Jose Bowers MD [address] [place] [address] Unspecified Paralysis (CMS/HCC) (Primary Dx); Neurogenic Bladder, NOS Social History Tobacco Use Types Packs/Day Years Used Date Smoking Tobacco: Never Assessed Comments Unknown Sex and Gender Information Value Date Recorded Sex Assigned at Not on file Legal Sex Female 6:28 AM FACILITIES PLANT ENGINEER Gender Identity Not on file Sexual Orientation Not on file documented as of this encounter Plan of Treatment Not on file documented as of this encounter Visit Diagnoses Diagnosis Paralysis, unspecified (CMS/HCC)- Primary Paralysis, unspecified Neurogenic bladder, NOS documented in this encounter Additional Health Concerns Infection Onset Date Last Indicated Resolved Time MRSA Comment:Kapil 10/26/15 10/27/2015 10/27/2015 documented as of this encounter Care Teams Cutter First Relationship Specialty Start Date End Date Jose Bowers MD [address] [place] [address] PCP - General 12/31/05 documented as of this encounter
--- OUTSIDE RECORDS SUMMARY | 2024-08-18 18:45 | XMS_ITS | Encounter Summary ---
Author Organization [facility] Address [address] [place] [address] Care Team Providers Care Crusher Plant Operator Name Role Phone Jose Bowers MD Primary Care Provider Levon lowry Encounter Details Date Type Department Care Team (Latest Contact Info) Description 04/28/2008 Outpatient Historical [facility] [address] [place] [address] AMBULANCE, [facility] Paraplegia ([facility]); Pressure Ulcer, Upper Back; Pressure Ulcer, Unspecified Stage; Wheelchair Dependence; Bed Confinement Status; Encounter for Long-Term (Current) Use of Other Medications; Encounter for Long-Term (Current) Use of Insulin ([facility]); Personal History of Allergy to Penicillin; Personal History of Allergy to Narcotic Agent Social History Tobacco Use Types Packs/Day Years Used Date Smoking Tobacco: Never Assessed Comments Unknown Sex and Gender Information Value Date Recorded Sex Assigned at Not on file Legal Sex Female 6:28 AM SEWING DEMONSTRATOR Gender Identity Not on file Sexual Orientation Not on file documented as of this encounter Plan of Treatment Not on file documented as of this encounter Visit Diagnoses Diagnosis Paraplegia ([facility]) Paraplegia Pressure ulcer, upper back(707.02) Pressure ulcer, upper back Pressure ulcer, unspecified stage(707.20) Pressure ulcer, unspecified stage Wheelchair dependence Bed confinement status Encounter for long-term (current) use of other medications Encounter for long-term (current) use of insulin ([facility]) Encounter for long-term (current) use of insulin Personal history of allergy to penicillin Personal history of allergy to narcotic agent documented in this encounter Additional Health Concerns Infection Onset Date Last Indicated Resolved Time MRSA Comment:Nares 4/20/16 10/27/2015 10/27/2015 documented as of this encounter Care Teams Crusher Plant Operator Relationship Specialty Start Date End Date Jose Bowers MD [address] [place] [address] PCP - General 12/31/05 documented as of this encounter
--- OUTSIDE RECORDS SUMMARY | 2024-08-18 18:45 | XMS_ITS | Encounter Summary ---
Author Organization [facility] Address [address] [place] [address] Care Team Providers Care Magnetic Testing Technician Name Role Phone Jose Bowers MD Primary Care Provider Unavailab le Encounter Details Date Type Department Care Team (Latest Contact Info) Description 02/05/2005 Outpatient Historical [facility] Acute Therapy Services [address] [place] [address] [place] [phone] Morenita Muñiz MD [address] [place] [address] [address] ADMINISTRTVE ENCOUNT NOS (Primary Dx) Social History Tobacco Use Types Packs/Day Years Used Date Smoking Tobacco: Never Assessed Comments Unknown Sex and Gender Information Value Date Recorded Sex Assigned at Not on file 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 Gender Identity Not on file Sexual Orientation Not on file documented as of this encounter Plan of Treatment Not on file documented as of this encounter Visit Diagnoses Diagnosis Encounters for unspecified administrative purpose- Primary documented in this encounter Additional Health Concerns Infection Onset Date Last Indicated Resolved Time MRSA Comment:Kapil 10/26/15 10/27/2015 10/27/2015 documented as of this encounter Care Teams Magnetic Testing Technician Relationship Specialty Start Date End Date Jose Bowers MD [address] [place] [address] PCP - General 12/31/05 documented as of this encounter
--- OUTSIDE RECORDS SUMMARY | 2024-08-18 18:45 | XMS_ITS | Encounter Summary ---
Author Organization [facility] Address [address] [place] [address] Care Team Providers Care Direct Support Staff Member Name Role Phone Jose Bowers MD Primary Care Provider Unavail le Encounter Details Date Type Department Care Team (Late st Contact Info) Description 12/31/2006 Outpatient Historical [facility] Jose Bowers MD [address] [place] [address] Pain in Soft Tissues of Limb (Primary Dx) Social History Tobacco Use Types Packs/Day Years Used Date Smoking Tobacco: Never Assessed Comments Unknown Sex and Gender Information Value Date Recorded Sex Assigned at Not on file Legal Sex Female 6:28 AM EMERGENCY MANAGEMENT SYSTEM DIRECTOR Gender Identity Not on file Sexual Orientation Not on file documented as of this encounter Plan of Treatment Not on file documented as of this encounter Procedures Procedure Name Priority Date/Time Associated Diagnosis Comments CBC WITH DIFFERENTIAL Routine 12/31/2006 10:45 AM CDT PROTIME-INR Routine 12/31/2006 10:45 AM CDT documented in this encounter Results * (ABNORMAL) PROTIME-INR (12/31/2006 10:45 AM CDT) PROTIME 25.2(H) 13.0 - 15.7 Secs INTERFACE SYSTEM Comment: As of 06 note change in normal range. INR 2.1 INTERFACE SYSTEM Comment: Expected Values for INR: DVT/PE ?Goal INR 2.5; range 2.0 - 3.0 Valve Replacement ? Tissue ? Goal INR 2.5; range 2.0 - 3.0 ? Mechanical ? Goal INR 3.0; range 2.5 - 3.5 POST-HI ? Goal INR 2.5; range 2.0 - 3.0 or Goal 3.0; range 2.5 - 3.5 Atrial Fibrillation ? Goal INR 2.5; range 2.0 - 3.0 Ischemic Stroke ? Goal INR 2.5; range 2.0 - 3.0 For additional information see Guidelines for Anticoagulation available from the pharmacy [facility] ?? 12/31/2006 10:4 5 AM CDT Jose Bowers MD HEMATOLOGY ORDERABLES Edited INTERFACE SYSTEM Refer to clinic/hospital department * CBC WITH DIFFERENTIAL (12/31/2006 10:45 AM CDT) WBC 5.5 4.5 - 11.0 K/ul INTERFACE SYSTEM RBC 4.38 4.20 - 5.40 Mil/ul INTERFACE SYSTEM HEMOGLOBIN 13.6 12.0 - 16.0 g/dL INTERFACE SYSTEM HEMATOCRIT 40.6 36.0 - 46.0 % INTERFACE SYSTEM MCV 92.7 84.0 - 103.0 Fl INTERFACE SYSTEM MCH 31.1 27.0 - 34.0 pg INTERFACE SYSTEM MCHC 33.5 30.0 - 35.0 g/dL INTERFACE SYSTEM RDW 12.6 11.0 - 14.5 % INTERFACE SYSTEM PLATELETS 232 140 - 440 K/ul INTERFACE SYSTEM MPV 11.2 8.9 - 12.8 Fl INTERFACE SYSTEM NEUTROPHILS 51.3 42.2 - 75.2 % INTERFACE SYSTEM LYMPHOCYTES 34.7 24.0 - 44.0 % INTERFACE SYSTEM MONOCYTES 8.0 2.0 - 10.0 % INTERFACE SYSTEM EOSINOPHILS 5.5 0.0 - 7.0 % INTERFACE SYSTEM BASOPHILS 0.5 0.0 - 1.0 % INTERFACE SYSTEM NEUTROPHIL ABSOLUTE 2.8 2.0 - 8.0 K/ul INTERFACE SYSTEM LYMPHOCYTE ABSOLUTE 1.9 1.2 - 4.0 K/ul INTERFACE SYSTEM MONOCYTE ABSOLUTE 0.4 0.1 - 0.6 K/ul INTERFACE SYSTEM EOSINOPHIL ABSOLUTE 0.3 0.0 - 0.7 K/ul INTERFACE SYSTEM BASOPHILS ABSOLUTE 0.0 0.0 - 0.2 K/ul INTERFACE SYSTEM 12/31/2006 10:4 5 AM CDT us Jose Bowers MD HEMATOLOGY ORDERABLES Edited INTERFACE SYSTEM Refer to clinic/hospital department documented in this encounter Visit Diagnoses Diagnosis Pain in limb- Primary documented in this encounter Additional Health Concerns Infection Onset Date Last Indicated Resolved Time MRSA Comment:Kapil 10/26/15 10/27/2015 10/27/2015 documented as of this encounter Care Teams Direct Support Staff Member Relationship Specialty Start Date End Date Jose Bowers MD [address] [place] [address] PCP - General 12/31/05 documented as of this encounter
--- OUTSIDE RECORDS SUMMARY | 2024-08-18 18:45 | XMS_ITS | Encounter Summary ---
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 Gender Identity Not on file Sexual Orientation Not on file documented as of this encounter Plan of Treatment Not on file documented as of this encounter Procedures Procedure Name Priority Date/Time Associated Diagnosis Comments POC GLUCOSE Routine 04/08/2008 4:10 PM CDT POC GLUCOSE Routine 04/08/2008 11:00 AM CDT POC GLUCOSE Routine 04/08/2008 5:12 AM CDT CBC WITH DIFFERENTIAL Routine 04/08/2008 4:30 AM CDT BASIC METABOLIC PANEL Routine 04/08/2008 4:30 AM CDT BLOOD CULTURE Routine 04/07/2008 9:56 PM CDT BLOOD CULTURE Routine 04/07/2008 9:56 PM CDT POC GLUCOSE Routine 04/07/2008 8:36 PM CDT POC GLUCOSE Routine 04/07/2008 5:39 PM CDT POC BLOOD GAS, LYTES AND H+H Stat 04/07/2008 4:27 PM CDT POC GLUCOSE Routine 04/07/2008 11:30 AM CDT POC GLUCOSE Routine 04/07/2008 5:02 AM CDT CBC WITH DIFFERENTIAL Routine 04/07/2008 3:13 AM CDT BASIC METABOLIC PANEL Routine 04/07/2008 3:13 AM CDT POC GLUCOSE Routine 04/06/2008 8:09 PM CDT POC GLUCOSE Routine 04/06/2008 5:03 PM CDT POC GLUCOSE Routine 04/06/2008 10:59 AM CDT XR CHEST PA OR AP 1 VW Routine 8 8:47 AM CDT POC GLUCOSE Routine 04/06/2008 6:02 AM CDT CBC WITH DIFFERENTIAL Routine 04/06/2008 3:55 AM CDT RENAL FUNCTION PANEL Routine 04/06/2008 3:55 AM CDT POC GLUCOSE Routine 04/05/2008 8:20 PM CDT POC GLUCOSE Routine 04/05/2008 4:50 PM CDT IV CATHETER CULTURE Routine 04/05/2008 4 :00 PM CDT XR CHEST PA OR AP 1 VW Routine 8 1:16 PM CDT POC GLUCOSE Routine 04/05/2008 11:06 AM CDT POC GLUCOSE Routine 04/05/2008 7:26 AM CDT PT AND APTT Routine 04/05/2008 3:04 AM CDT CBC WITH DIFFERENTIAL Routine 04/05/2008 3:04 AM CDT PHOSPHORUS Routine 04/05/2008 3:04 AM CDT MAGNESIUM LEVEL Routine 04/05/2008 3:04 AM CDT BASIC METABOLIC PANEL Routine 04/05/2008 3:04 AM CDT CBC WITH DIFFERENTIAL Routine 04/04/2008 5:04 PM CDT RENAL FUNCTION PANEL Routine 04/04/2008 5:04 PM CDT POC BLOOD GAS, LYTES AND H+H Stat 04/04/2008 9:15 AM CDT CBC WITH DIFFERENTIAL Routine 04/04/2008 4:19 AM CDT PTT Routine 04/04/2008 4:19 AM CDT PROTIME-INR Routine 04/04/2008 4:19 AM CDT PHOSPHORUS Routine 04/04/2008 4:19 AM CDT MAGNESIUM LEVEL Routine 04/04/2008 4:19 AM CDT COMPREHENSIVE METABOLIC PANEL Routine 04/04/2008 4:19 AM CDT POC BLOOD GAS, LYTES AND H+H Stat 04/04/2008 4:07 AM CDT MRSA CULTURE Routine 04/03/2008 9:03 PM CDT XR CHEST PA OR AP 1 VW Routine 8 8:55 PM CDT POC BLOOD GAS, LYTES AND H+H Stat 04/03/2008 8:35 PM CDT ABORH TYPING Routine 04/03/2008 8:13 PM CDT CBC WITH DIFFERENTIAL Routine 04/03/2008 8:13 PM CDT PTT Routine 04/03/2008 8:13 PM CDT PROTIME-INR Routine 04/03/2008 8:13 PM CDT TYPE AND CROSSMATCH Routine 04/03/2008 8 :13 PM CDT BLOOD BANK ANTIBODY SCREEN Routine 04/03/2008 8:13 PM CDT COMPREHENSIVE METABOLIC PANEL Routine 04/03/2008 8:13 PM CDT documented in this encounter Results * (ABNORMAL) POC GLUCOSE (04/08/2008 4:10 PM CDT) GLUCOSE POC 109(H) 60 - 100 mg/dL [facility] Venous blood specimen (specimen) 04/08/2008 4:10 PM CDT 04/09/2008 7:42 AM CDT Riky Mejía MD POINT OF CARE TESTING Final Result Performing Organization Address City/State/[facility] Co de Phone Number INTERFACE SYSTEM Refer to clinic/hospital department [facility] CLIA# [id number] [facility] [place] [address] * (ABNORMAL) POC GLUCOSE (04/08/2008 11:00 AM CDT) GLUCOSE POC 122(H) 60 - 100 mg/dL [facility] Venous blood specimen (specimen) 04/08/2008 11:00 AM CDT 04/09/2008 7:42 AM CDT us Riky Mejía MD POINT OF CARE TESTING Final Result Performing Organization Address [facility] de Phone Number INTERFACE SYSTEM Refer to clinic/hospital department [facility] CLIA# [id number] [address] [place] [address] * (ABNORMAL) POC GLUCOSE (04/08/2008 5:12 AM CDT) GLUCOSE POC 124(H) 60 - 100 mg/dL [facility] Venous blood specimen (specimen) 04/08/2008 5:12 AM CDT 04/08/2008 7:16 AM CDT Riky Mejía MD POINT OF CARE TESTING Final Result Performing Organization Address [facility][1] de Phone Number INTERFACE SYSTEM Refer to clinic/hospital department [facility] CLIA# [id number] [address] [place] [address] * (ABNORMAL) BASIC METABOLIC PANEL (04/08/2008 4:30 AM CDT) POTASSIUM 4.2 3.5 - 5.0 mEq/L [facility] OSMOLALITY, CALCULATED 284 275 - 295 mOsm/Kg [facility] CREATININE 0.5(L) 0.7 - 1.2 mg/dL [facility] CALCIUM 8.4 8.4 - 10.5 mg/dL [facility] GLUCOSE 141(H) 70 - 110 mg/dL [facility] CHLORIDE 102 95 - 110 mEq/L [facility] ANION GAP 9 9 - 20 mEq/L [facility] SODIUM 137 136 - 145 mEq/L [facility] BUN 11 7 - 17 mg/dL [facility] CO2 30 22 - 32 mmol/l [facility] Blood specimen (specimen) 04/08/2008 4:30 AM CDT 04/08/2008 4:30 AM CDT Riky Mejía MD CHEMISTRY ORDERABLES Final Result INTERFACE SYSTEM Refer to clinic/hospital department [facility] CLIA# [id number] [facility] [place] [address] * (ABNORMAL) CBC WITH DIFFERENTIAL (04/08/2008 4:30 AM CDT) MCV 90.8 84.0 - 103.[address] [facility] BASOPHILS 0.2 0.0 - 1.0 % [facility] MPV 10.7 8.9 - 12.[address] [facility] BASOPHILS ABSOLUTE 0.0 0.0 - 0.2 K/ul [facility] HEMOGLOBIN 10.6(L) 12.0 - 16.0 g/dL [facility] MONOCYTES 8.0 2.0 - 10.0 % [facility] RDW 16.8(H) 11.0 - 14.5 % [facility] MONOCYTE ABSOLUTE 1.0(H) 0.1 - 0.6 K/ul [facility] WBC 12.7(H) 4.5 - 11.0 K/ul [facility] NEUTROPHILS 86.4(H) 42.2 - 75.2 % [facility] MCH 29.4 27.0 - 34.[address] [facility] NEUTROPHIL ABSOLUTE 10.9(H) 2.0 - 8.0 K/ul [facility] HEMATOCRIT 32.7(L) 36.0 - 46.0 % [facility] PLATELETS 149 140 - 440 K/ul [facility] EOSINOPHIL ABSOLUTE 0.1 0.0 - 0.7 K/ul [facility] EOSINOPHILS 0.7 0.0 - 7.0 % [facility] RBC 3.60(L) 4.20 - 5.40 Mil/ul [facility] MCHC 32.4 30.0 - 35.0 g/dL [facility] LYMPHOCYTE ABSOLUTE 0.6(L) 1.2 - 4.0 K/ul [facility] LYMPHOCYTES 4.7(L) 24.0 - 44.0 % [facility] Blood specimen (specimen) 04/08/2008 4:30 AM CDT 04/08/2008 4:30 AM CDT us Riky Mejía MD HEMATOLOGY ORDERABLES Final Result Performing Organization Address City/[facility] de Phone Number INTERFACE SYSTEM Refer to clinic/hospital department [facility] CLIA# [id number] [facility] [place] [address] * BLOOD CULTURE (04/07/2008 9:56 PM CDT) FINAL REPORT No growth INTERFA CE SYSTEM Blood specimen (specimen) 04/07/2008 9:56 PM CDT 04/07/2008 9:56 PM CDT us Riky Mejía MD MICROBIOLOGY - GENERAL MINERVA ATKINSON Final Result Performing Organization Address [facility] de Phone Number INTERFACE SYSTEM Refer to clinic/hospital department * BLOOD CULTURE (04/07/2008 9:56 PM CDT) FINAL REPORT No growth INTERFA CE SYSTEM Blood specimen (specimen) 04/07/2008 9:56 PM CDT 04/07/2008 9:56 PM CDT us Riky Mejía MD MICROBIOLOGY - GENERAL [place] ATKINSON Final Result Performing Organization Address [facility] de Phone Number INTERFACE SYSTEM Refer to clinic/hospital department * (ABNORMAL) POC GLUCOSE (04/07/2008 8:36 PM CDT) GLUCOSE POC 159(H) 60 - 100 mg/dL [facility] Venous blood specimen (specimen) 04/07/2008 8:36 PM CDT 04/08/2008 7:22 AM CDT us Riky Mejía MD POINT OF CARE TESTING Final Result Performing Organization Address City/[facility] de Phone Number INTERFACE SYSTEM Refer to clinic/hospital department [facility] CLIA# [id number] [address] [place] [address] * (ABNORMAL) POC GLUCOSE (04/07/2008 5:39 PM CDT) GLUCOSE POC 122(H) 60 - 100 mg/dL [facility] Venous blood specimen (specimen) 04/07/2008 5:39 PM CDT 04/08/2008 7:16 AM CDT Riky Mejía MD POINT OF CARE TESTING Final Result Performing Organization Address [facility] de Phone Number INTERFACE SYSTEM Refer to clinic/hospital department [facility] CLIA# [id number] [address] [place] [address] * (ABNORMAL) POC ISTAT EG 7+ (04/07/2008 4:27 PM CDT) FIO2 [address] [facility] PO2 67(L) 80 - [address] [facility] CALCIUM IONIZED 1.15 1.12 - 1.32 mmol/l [facility] HEMATOCRIT ABG 32(L) 38 - 51 % [facility] PCO2 POC 45 35 - [address] [facility] SODIUM 137(L) 138 - 146 mEq/L [facility] BASE EXCESS 7(H) -2 - 3 mmol/l [facility] PH 7.45 7.35 - 7.[address] [facility] O2 SATURATION 94(L) 95 - 98 % [facility] PO2 TEMP CORRECT 67(L) 80 - [address] [facility] SPECIMEN TYPE Arterial [facility] Comment: Test Performed By [id number] Pulse OX: 99 Hemoglobin calculated from Hematocrit result PCO2 TEMP CORRECT 45 35 - [address] [facility] HEMOGLOBIN POC 10.9 +/-3 g/dL 12.0 - 16.0 g/dL [facility] POTASSIUM 4.0 3.5 - 4.9 mEq/L [facility] PH TEMP CORRECT 7.45 7.35 - 7.[address] [facility] HCO3 (CALC) POC 31.1(H) 22.0 - 26.0 mmol/l [facility] TCO2 (CALC) POC 32(H) 23 - 27 mmol/l [facility] Arterial blood specimen (specimen) 04/07/2008 4:27 PM CDT 04/07/2008 4:30 PM CDT Riky Mejía MD POINT OF CARE TESTING COM F inal Result Performing Organization Address [facility] de Phone Number INTERFACE SYSTEM Refer to clinic/hospital department [facility] CLIA# [id number] [address] [place] [address] * (ABNORMAL) POC GLUCOSE (04/07/2008 11:30 AM CDT) GLUCOSE POC 108(H) 60 - 100 mg/dL [facility] Venous blood specimen (specimen) 04/07/2008 11:30 AM CDT 04/08/2008 7:16 AM CDT Riky Mejía MD POINT OF CARE TESTING Final Result Performing Organization Address [facility] de Phone Number INTERFACE SYSTEM Refer to clinic/hospital department [facility] CLIA# [id number] [address] [place] [address] * (ABNORMAL) POC GLUCOSE (04/07/2008 5:02 AM CDT) GLUCOSE POC 138(H) 60 - 100 mg/dL [facility] Venous blood specimen (specimen) 04/07/2008 5:02 AM CDT 04/07/2008 7:10 AM CDT Riky Mejía MD POINT OF CARE TESTING Final Result INTERFACE SYSTEM Refer to clinic/hospital department [facility] CLIA# [id number] [address] [place] [address] * (ABNORMAL) CBC WITH DIFFERENTIAL (04/07/2008 3:13 AM CDT) HEMATOCRIT 30.3(L) 36.0 - 46.0 % [facility] EOSINOPHILS 1.6 0.0 - 7.0 % [facility] PLATELETS 140 140 - 440 K/ul [facility] PERIPHERAL BLOOD SMEAR REVIEW Automated Diff [facility] EOSINOPHIL ABSOLUTE 0.2 0.0 - 0.7 K/ul [facility] RBC 3.33(L) 4.20 - 5.40 Mil/ul [facility] LYMPHOCYTES 6.7(L) 24.0 - 44.0 % [facility] MCHC 32.3 30.0 - 35.0 g/dL [facility] LYMPHOCYTE ABSOLUTE 0.8(L) 1.2 - 4.0 K/ul [facility] MCV 91.0 84.0 - 103.[address] [facility] MPV 11.6 8.9 - 12.[address] [facility] BASOPHILS ABSOLUTE 0.0 0.0 - 0.2 K/ul [facility] BASOPHILS 0.2 0.0 - 1.0 % [facility] HEMOGLOBIN 9.8(L) 12.0 - 16.0 g/dL [facility] RDW 16.9(H) 11.0 - 14.5 % [facility] MONOCYTE ABSOLUTE 1.1(H) 0.1 - 0.6 K/ul [facility] MONOCYTES 9.4 2.0 - 10.0 % [facility] WBC 11.7(H) 4.5 - 11.0 K/ul [facility] MCH 29.4 27.0 - 34.[address] [facility] NEUTROPHIL ABSOLUTE 9.6(H) 2.0 - 8.0 K/ul [facility] NEUTROPHILS 82.1(H) 42.2 - 75.2 % [facility] Blood specimen (specimen) 04/07/2008 3:13 AM CDT 04/07/2008 3:19 AM CDT us Riky Mejía MD HEMATOLOGY ORDERABLES Final Result Performing Organization Address City/[facility] Phone Number INTERFACE SYSTEM Refer to clinic/hospital department [facility] CLIA# [id number] [address] [place] [address] * (ABNORMAL) BASIC METABOLIC PANEL (04/07/2008 3:13 AM CDT) [facility] OSMOLALITY, CALCULATED 291 275 - 295 mOsm/Kg [facility] POTASSIUM 4.1 3.5 - 5.0 mEq/L [facility] CREATININE 0.6(L) 0.7 - 1.2 mg/dL [facility] CALCIUM 8.6 8.4 - 10.5 mg/dL [facility] GLUCOSE 141(H) 70 - 110 mg/dL [facility] CHLORIDE 105 95 - 110 mEq/L [facility] SODIUM 140 136 - 145 mEq/L [facility] ANION GAP 7(L) 9 - 20 mEq/L [facility] BUN 14 7 - 17 mg/dL [facility] CO2 32 22 - 32 mmol/l [facility] Blood specimen (specimen) 04/07/2008 3:13 AM CDT 04/07/2008 3:19 AM CDT us Riky Mejía MD CHEMISTRY ORDERABLES Final Result Performing Organization Address [facility] de Phone Number INTERFACE SYSTEM Refer to clinic/hospital department [facility] CLIA# [id number] [address] [place] [address] * (ABNORMAL) POC GLUCOSE (04/06/2008 8:09 PM CDT) [facility] GLUCOSE POC 118(H) 60 - 100 mg/dL [facility] Venous blood specimen (specimen) 04/06/2008 8:09 PM CDT 04/07/2008 7:13 AM CDT Riky Mejía MD POINT OF CARE TESTING Final Result Performing Organization Address [facility] Phone Number INTERFACE SYSTEM Refer to clinic/hospital department [facility] CLIA# [id number] [address] [place] [address] * (ABNORMAL) POC GLUCOSE (04/06/2008 5:03 PM CDT) GLUCOSE POC 131(H) 60 - 100 mg/dL [facility] Venous blood specimen (specimen) 04/06/2008 5:03 PM CDT 04/07/2008 7:10 AM CDT Riky Mejía MD POINT OF CARE TESTING Final Result Performing Organization Address [facility] Phone Number INTERFACE SYSTEM Refer to clinic/hospital department [facility] CLIA# [id number] [address] [place] [address] * (ABNORMAL) POC GLUCOSE (04/06/2008 10:59 AM CDT) GLUCOSE POC 128(H) 60 - 100 mg/dL [facility] Venous blood specimen (specimen) 04/06/2008 10:59 AM CDT 04/07/2008 7:10 AM CDT iRky Mejía MD POINT OF CARE TESTING Final Result Performing Organization Address [facility] de Phone Number INTERFACE SYSTEM Refer to clinic/hospital department [facility] CLIA# [id number] [address] [place] [address] * XR CHEST PA OR AP (04/06/2008 8:47 AM CDT) Anatomical Region Laterality Modality Chest Other 04/06/2008 8:47 AM CDT Narrative 04/06/2008 11:06 AM CDT Exam: Chest - Portable Date/Time of Exam: Apr 06, 2008 8:47:34 AM History: Difficulty breathing. Findings: Compared with 04/05/2008, low lung volumes and bilateral areas of probable atelectasis and/or scar in the mid to lower lung zones are present. Right-sided PICC remains in place with tip in SVC. No pleural effusion. The cardiomediastinal contours accentuated by above factors. - Dictated By: ??Frederic Vieyra M.D. Electronically Signed By: ??Frederic Vieyra M.D. Date Signed: 04/06/08 Procedure Note Frederic Vieyra MD - 04/06/2008 Exam: Chest - Portable Date/Time of Exam: Apr 06, 2008 8:47:34 AM History: Difficulty breathing. Findings: Compared with 04/05/2008, low lung volumes and bilateral areasof probable atelectasis and/or scar in the mid to lower lung zones are present. Right-sided PICC remainsin place with tip in SVC. No pleural effusion. The cardiomediastinal contours accentuated by abovefactors. - Dictated By: Frederic Vieyra M.D. Electronically Signed By: Frederic Vieyra M.D. Date Signed: 04/06/08 Riky Mejía MD DIAGNOSTIC IMAGING ORDERABL ES Final Result * (ABNORMAL) POC GLUCOSE (04/06/2008 6:02 AM CDT) GLUCOSE POC 126(H) 60 - 100 mg/dL [facility] Venous blood specimen (specimen) 04/06/2008 6:02 AM CDT 04/06/2008 7:01 AM CDT us Riky Mejía MD POINT OF CARE TESTING Final Result INTERFACE SYSTEM Refer to clinic/hospital department [facility] CLIA# [id number] [address] [place] [address] * (ABNORMAL) CBC WITH DIFFERENTIAL (04/06/2008 3:55 AM CDT) NEUTROPHILS 81.1(H) 42.2 - 75.2 % [facility] MCH 29.1 27.0 - 34.[address] [facility] NEUTROPHIL ABSOLUTE 8.9(H) 2.0 - 8.0 K/ul [facility] HEMATOCRIT 31.3(L) 36.0 - 46.0 % [facility] PLATELETS 122(L) 140 - 440 K/ul [facility] EOSINOPHIL ABSOLUTE 0.3 0.0 - 0.7 K/ul [facility] EOSINOPHILS 3.1 0.0 - 7.0 % [facility] RBC 3.47(L) 4.20 - 5.40 Mil/ul [facility] MCHC 32.3 30.0 - 35.0 g/dL [facility] LYMPHOCYTE ABSOLUTE 0.9(L) 1.2 - 4.0 K/ul [facility] LYMPHOCYTES 8.4(L) 24.0 - 44.0 % [facility] MCV 90.2 84.0 - 103.[address] [facility] BASOPHILS 0.2 0.0 - 1.0 % [facility] MPV 11.8 8.9 - 12.[address] [facility] BASOPHILS ABSOLUTE 0.0 0.0 - 0.2 K/ul [facility] HEMOGLOBIN 10.1(L) 12.0 - 16.0 g/dL [facility] MONOCYTES 7.2 2.0 - 10.0 % [facility] RDW 17.0(H) 11.0 - 14.5 % [facility] MONOCYTE ABSOLUTE 0.8(H) 0.1 - 0.6 K/ul [facility] WBC 11.0 4.5 - 11.0 K/ul [facility] Blood specimen (specimen) 04/06/2008 3:55 AM CDT 04/06/2008 4:00 AM CDT Marquis Scott MD HEMATOLOGY ORDERABLES Final Res ult INTERFACE SYSTEM Refer to clinic/hospital department [facility] CLIA# [id number] [address] [place] [address] * (ABNORMAL) RENAL FUNCTION PANEL (04/06/2008 3:55 AM CDT) GLUCOSE 218(H) 70 - 110 mg/dL [facility] OSMOLALITY, CALCULATED 295 275 - 295 mOsm/Kg [facility] CHLORIDE 106 95 - 110 mEq/L [facility] ALBUMIN 3.0(L) 3.5 - 5.0 g/dL [facility] SODIUM 138 136 - 145 mEq/L [facility] BUN 22(H) 7 - 17 mg/dL [facility] CO2 30 22 - 32 mmol/l [facility] PHOSPHORUS 2.0(L) 2.5 - 4.6 mg/dL [facility] POTASSIUM 4.7 3.5 - 5.0 mEq/L [facility] ANION GAP 7(L) 9 - 20 mEq/L [facility] CREATININE 0.6(L) 0.7 - 1.2 mg/dL [facility] CALCIUM 8.2(L) 8.4 - 10.5 mg/dL [facility] Blood specimen (specimen) 04/06/2008 3:55 AM CDT 04/06/2008 4:00 AM CDT Maruqis Scott MD CHEMISTRY ORDERABLES Final Resu lt Performing Organization Address City/[facility] Co de Phone Number INTERFACE SYSTEM Refer to clinic/hospital department [facility] CLIA# [id number] [address] [place] [address] * (ABNORMAL) POC GLUCOSE (04/05/2008 8:20 PM CDT) GLUCOSE POC 114(H) 60 - 100 mg/dL [facility] Venous blood specimen (specimen) 04/05/2008 8:20 PM CDT 04/06/2008 7:01 AM CDT us Riky Mejía MD POINT OF CARE TESTING Final Result Performing Organization Address [facility] Phone Number INTERFACE SYSTEM Refer to clinic/hospital department [facility] CLIA# [id number] [address] [place] [address] * (ABNORMAL) POC GLUCOSE (04/05/2008 4:50 PM CDT) GLUCOSE POC 118(H) 60 - 100 mg/dL [facility] Venous blood specimen (specimen) 04/05/2008 4:50 PM CDT 04/06/2008 7:01 AM CDT us Riky Mejía MD POINT OF CARE TESTING Final Result Performing Organization Address [facility] Phone Number INTERFACE SYSTEM Refer to clinic/hospital department [facility] CLIA# [id number] [address] [place] [address] * IV CATHETER CULTURE (04/05/2008 4:00 PM CDT) FINAL REPORT No growth INTERFA CE SYSTEM 04/05/2008 4:00 PM CDT 04/05/2008 4:00 PM CDT us Riky Mejía MD MICROBIOLOGY - GENERAL [place] Final Result Performing Organization Address City/[facility] de Phone Number INTERFACE SYSTEM Refer to clinic/hospital department * XR CHEST PA OR AP (04/05/2008 1:16 PM CDT) Anatomical Region Laterality Modality Chest Other 04/05/2008 1:16 PM CDT Narrative 04/05/2008 1:42 PM CDT Portable chest at 1306 was obtained and the prior exam is April 03, 2008. There is a new right subclavian PICC line with tip in the superior vena cava near the entrance of the right atrium. There is no pneumothorax. Left-sided PICC line continues.The ET tube and NG tube have been removed. There is shallow inspiration with vascular crowding. Mild vascular congestion and hazy airspace opacities are noted. There is no pneumothorax. Impression: New central line in good position. No pneumothorax. - Dictated By: ??Carlee Ochoa M.D. Electronically Signed By: ??Carlee Ochoa M.D. Date Signed: 04/05/08 Procedure Note Carlee Ochoa - 04/05/2008 Portable chest at 1306 was obtained and the prior exam is March. There is a new right subclavian PICC line with tip in the superior venacava near the entrance of the right atrium. There is no pneumothorax. Left-sided PICC line continues.TheET tube and NG tube have been removed. There is shallow inspiration with vascular crowding. Mildvascular congestion and hazy airspace opacities are noted. There is no pneumothorax. Impression: New central line in good position. No pneumothorax. - Dictated By: Carlee Ochoa M.D. Electronically Signed By: Carlee Ochoa M.D. Date Signed: 04/05/08 Riky Mejía MD DIAGNOSTIC IMAGING ORDERABL ES Final Result * (ABNORMAL) POC GLUCOSE (04/05/2008 11:06 AM CDT) [facility] Signature GLUCOSE POC 120(H) 60 - 100 mg/dL [facility] Venous blood specimen (specimen) 04/05/2008 11:06 AM CDT 04/06/2008 7:01 AM CDT Riky Mejía MD POINT OF CARE TESTING Final Result INTERFACE SYSTEM Refer to clinic/hospital department [facility] CLIA# [id number] [address] [place] [id number] * (ABNORMAL) POC GLUCOSE (04/05/2008 7:26 AM CDT) GLUCOSE POC 120(H) 60 - 100 mg/dL [facility] Venous blood specimen (specimen) 04/05/2008 7:26 AM CDT 04/06/2008 7:01 AM CDT Riky Mejía MD POINT OF CARE TESTING Final Result INTERFACE SYSTEM Refer to clinic/hospital department [facility] CLIA# [id number] [place] [address] * PT AND APTT (04/05/2008 3:04 AM CDT) [facility] PTT 24.1 22.5 - 36.[address] [facility] Comment: Therapeutic Range: ?? Hi-level PE/DVT heparin protocol 80.1 -95.0 ??sec ? Lo-level PE/DVT ??heparin protocol ??67.1 - ??80.0 sec ?? Cardiac Heparin Protocol 67.1 - 85.0 sec ?? Neuro Heparin Protocol 67.1 - 80.0 sec As of 09/25/2007 note change in APTT Normal Range. PROTIME 14.8 12.8 - 15.[address] [facility] Comment:As of 2007 not e change in normal range. INR 1.0 [facility] Comment: Expected Values for INR: DVT/PE ?Goal INR 2.5; range 2.0 - 3.0 Valve Replacement ? Tissue ? Goal INR 2.5; range 2.0 - 3.0 ? Mechanical ?Goal INR 3.0; range 2.5 - 3.5 POST-WI ?Goal INR 2.5; range 2.0 - 3.0 ??or Goal 3.0; range 2.5 - 3.5 Atrial Fibrillation ?Goal INR 2.5; range 2.0 - 3.0 Ischemic Stroke ?Goal INR 2.5; range 2.0 - 3.0 For additional information see Guidelines for Anticoagulation available from the pharmacy [facility]. ??[phone] Blood specimen (specimen) 04/05/2008 3:04 AM CDT 04/05/2008 3:08 AM CDT us Riky Mejía MD HEMATOLOGY ORDERABLES Edite d Performing Organization Address [facility] Phone Number INTERFACE SYSTEM Refer to clinic/hospital department [facility] CLIA# [id number] [address] [place] [address] * MAGNESIUM LEVEL (04/05/2008 3:04 AM CDT) MAGNESIUM 2.1 1.7 - 2.4 mg/dL [facility] Blood specimen (specimen) 04/05/2008 3:04 AM CDT 04/05/2008 3:08 AM CDT us Riky Mejía MD CHEMISTRY ORDERABLES Final Result Performing Organization Address [facility] Phone Number INTERFACE SYSTEM Refer to clinic/hospital department [facility] CLIA# [id number] [address] [place] [address] * (ABNORMAL) PHOSPHORUS (04/05/2008 3:04 AM CDT) PHOSPHORUS 1.7(L) 2.5 - 4.6 mg/dL [facility] Blood specimen (specimen) 04/05/2008 3:04 AM CDT 04/05/2008 3:08 AM CDT Riky Mejía MD CHEMISTRY ORDERABLES Final Result Performing Organization Address [facility] Phone Number INTERFACE SYSTEM Refer to clinic/hospital department [facility] CLIA# [id number] [address] [place] [address] * (ABNORMAL) BASIC METABOLIC PANEL (04/05/2008 3:04 AM CDT) Pathologist [facility] CO2 30 22 - 32 mmol/l [facility] OSMOLALITY, CALCULATED 307(H) 275 - 295 mOsm/Kg [facility] POTASSIUM 3.9 3.5 - 5.0 mEq/L [facility] CREATININE 0.7 0.7 - 1.2 mg/dL [facility] CALCIUM 8.2(L) 8.4 - 10.5 mg/dL [facility] GLUCOSE 126(H) 70 - 110 mg/dL [facility] CHLORIDE 112(H) 95 - 110 mEq/L [facility] SODIUM 146(H) 136 - 145 mEq/L [facility] ANION GAP 8(L) 9 - 20 mEq/L [facility] BUN 32(H) 7 - 17 mg/dL [facility] Blood specimen (specimen) 04/05/2008 3:04 AM CDT 04/05/2008 3:08 AM CDT Riky Mejía MD CHEMISTRY ORDERABLES Final Result Performing Organization Address [facility] Phone Number INTERFACE SYSTEM Refer to clinic/hospital department [facility] CLIA# [id number] [address] [place] [address] * (ABNORMAL) CBC WITH DIFFERENTIAL (04/05/2008 3:04 AM CDT) Pathologist [facility] EOSINOPHIL ABSOLUTE 0.2 0.0 - 0.7 K/ul [facility] EOSINOPHILS 2.2 0.0 - 7.0 % [facility] PERIPHERAL BLOOD SMEAR REVIEW Automated Diff [facility] RBC 3.51(L) 4.20 - 5.40 Mil/ul [facility] MCHC 33.2 30.0 - 35.0 g/dL [facility] LYMPHOCYTE ABSOLUTE 1.1(L) 1.2 - 4.0 K/ul [facility] LYMPHOCYTES 9.6(L) 24.0 - 44.0 % [facility] MCV 88.3 84.0 - 103.[address] [facility] BASOPHILS 0.1 0.0 - 1.0 % [facility] MPV 11.0 8.9 - 12.[address] [facility] BASOPHILS ABSOLUTE 0.0 0.0 - 0.2 K/ul [facility] HEMOGLOBIN 10.3(L) 12.0 - 16.0 g/dL [facility] MONOCYTES 8.4 2.0 - 10.0 % [facility] RDW 17.1(H) 11.0 - 14.5 % [facility] MONOCYTE ABSOLUTE 0.9(H) 0.1 - 0.6 K/ul [facility] WBC 10.9 4.5 - 11.0 K/ul [facility] NEUTROPHILS 79.7(H) 42.2 - 75.2 % [facility] MCH 29.3 27.0 - 34.[address] [facility] NEUTROPHIL ABSOLUTE 8.7(H) 2.0 - 8.0 K/ul [facility] HEMATOCRIT 31.0(L) 36.0 - 46.0 % [facility] PLATELETS 91(L) 140 - 440 K/ul [facility] Blood specimen (specimen) 04/05/2008 3:04 AM CDT 04/05/2008 3:08 AM CDT Riky Mejía MD HEMATOLOGY ORDERABLES Final Result INTERFACE SYSTEM Refer to clinic/hospital department [facility] CLIA# [id number] [address] [place] [address] * (ABNORMAL) RENAL FUNCTION PANEL (04/04/2008 5:04 PM CDT) Pathologist [facility] ANION GAP 8(L) 9 - 20 mEq/L [facility] PHOSPHORUS 1.9(L) 2.5 - 4.6 mg/dL [facility] ALBUMIN 2.9(L) 3.5 - 5.0 g/dL [facility] CHLORIDE 117(H) 95 - 110 mEq/L [facility] CREATININE 1.2 0.7 - 1.2 mg/dL [facility] SODIUM 147(H) 136 - 145 mEq/L [facility] GLUCOSE 124(H) 70 - 110 mg/dL [facility] CO2 26 22 - 32 mmol/l [facility] CALCIUM 7.5(L) 8.4 - 10.5 mg/dL [facility] POTASSIUM 3.5 3.5 - 5.0 mEq/L [facility] OSMOLALITY, CALCULATED 309(H) 275 - 295 mOsm/Kg [facility] BUN 34(H) 7 - 17 mg/dL [facility] Blood specimen (specimen) 04/04/2008 5:04 PM CDT 04/04/2008 5:06 PM CDT Riky Mejía MD CHEMISTRY ORDERABLES Edited INTERFACE SYSTEM Refer to clinic/hospital department [facility]# [id number] [address] [place] [address] * (ABNORMAL) CBC WITH DIFFERENTIAL (04/04/2008 5:04 PM CDT) Pathologist [facility] HEMOGLOBIN 9.6(L) 12.0 - 16.0 g/dL [facility] RDW 16.8(H) 11.0 - 14.5 % [facility] MONOCYTE ABSOLUTE 0.9(H) 0.1 - 0.6 K/ul [facility] MONOCYTES 10.0 2.0 - 10.0 % [facility] WBC 9.4 4.5 - 11.0 K/ul [facility] MCH 29.0 27.0 - 34.[address] [facility] NEUTROPHIL ABSOLUTE 7.3 2.0 - 8.0 K/ul [facility] NEUTROPHILS 77.7(H) 42.2 - 75.2 % [facility] HEMATOCRIT 28.9(L) 36.0 - 46.0 % [facility] EOSINOPHILS 1.1 0.0 - 7.0 % [facility] PLATELETS 83(L) 140 - 440 K/ul [facility] PERIPHERAL BLOOD SMEAR REVIEW Automated Diff [facility] EOSINOPHIL ABSOLUTE 0.1 0.0 - 0.7 K/ul [facility] RBC 3.31(L) 4.20 - 5.40 Mil/ul [facility] LYMPHOCYTES 11.1(L) 24.0 - 44.0 % [facility] MCHC 33.2 30.0 - 35.0 g/dL [facility] LYMPHOCYTE ABSOLUTE 1.0(L) 1.2 - 4.0 K/ul [facility] MCV 87.3 84.0 - 103.[address] [facility] MPV 11.6 8.9 - 12.[address] [facility] BASOPHILS ABSOLUTE 0.0 0.0 - 0.2 K/ul [facility] BASOPHILS 0.1 0.0 - 1.0 % [facility] Blood specimen (specimen) 04/04/2008 5:04 PM CDT 04/04/2008 5:06 PM CDT us Riky Mejía MD HEMATOLOGY ORDERABLES Final Result INTERFACE SYSTEM Refer to clinic/hospital department [facility] CLIA# [id number] [address] [place] [address] * (ABNORMAL) POC ISTAT EG 7+ (04/04/2008 9:15 AM CDT) SODIUM 145 138 - 146 mEq/L [facility] BASE EXCESS 0 -2 - 3 mmol/l [facility] PH 7.39 7.35 - 7.[address] [facility] O2 SATURATION 94(L) 95 - 98 % [facility] PO2 TEMP CORRECT 70(L) 80 - [address] [facility] PCO2 TEMP CORRECT 42 35 - [address] [facility] HEMOGLOBIN POC 8.8 +/-3 g/dL 12.0 - 16.0 g/dL [facility] POTASSIUM 3.2(L) 3.5 - 4.9 mEq/L [facility] PH TEMP CORRECT 7.39 7.35 - 7.[address] [facility] HCO3 (CALC) POC 25.0 22.0 - 26.0 mmol/l [facility] TCO2 (CALC) POC 26 23 - 27 mmol/l [facility] SPECIMEN TYPE Arterial [facility] Comment: Test Performed By [id number] Pulse OX: 94 Hemoglobin calculated from Hematocrit result PO2 70(L) 80 - [address] [facility] CALCIUM IONIZED 1.12 1.12 - 1.32 mmol/l [facility] HEMATOCRIT ABG 26(L) 38 - 51 % [facility] PCO2 POC 42 35 - [address] [facility] Arterial blood specimen (specimen) 04/04/2008 9:15 AM CDT 04/04/2008 9:18 AM CDT us Riky Mejía MD POINT OF CARE TESTING COM F inal Result INTERFACE SYSTEM Refer to clinic/hospital department [facility] CLIA# [id number] [address] [place] [address] * PTT (04/04/2008 4:19 AM CDT) PTT 26.4 22.5 - 36.[address] [facility] Comment: Therapeutic Range: ?? Hi-level PE/DVT heparin protocol 80.1 -95.0 ??sec ? Lo-level PE/DVT ??heparin protocol ??67.1 - ??80.0 sec ?? Cardiac Heparin Protocol 67.1 - 85.0 sec ?? Neuro Heparin Protocol 67.1 - 80.0 sec As of 09/25/2007 note change in APTT Normal Range. Blood specimen (specimen) 04/04/2008 4:19 AM CDT 04/04/2008 4:23 AM CDT us Riky Mejía MD HEMATOLOGY ORDERABLES Final Result INTERFACE SYSTEM Refer to clinic/hospital department [facility] CLIA# [id number] [address] [place] [address] * PROTIME-INR (04/04/2008 4:19 AM CDT) PROTIME 15.2 12.8 - 15.[address] [facility] Comment:As of 2007 not e change in normal range. INR 1.1 [facility] Comment: Expected Values for INR: DVT/PE ?Goal INR 2.5; range 2.0 - 3.0 Valve Replacement ? Tissue ? Goal INR 2.5; range 2.0 - 3.0 ? Mechanical ?Goal INR 3.0; range 2.5 - 3.5 POST-WI ?Goal INR 2.5; range 2.0 - 3.0 ??or Goal 3.0; range 2.5 - 3.5 Atrial Fibrillation ?Goal INR 2.5; range 2.0 - 3.0 Ischemic Stroke ?Goal INR 2.5; range 2.0 - 3.0 For additional information see Guidelines for Anticoagulation available from the pharmacy [facility] D. ??[phone] Blood specimen (specimen) 04/04/2008 4:19 AM CDT 04/04/2008 4:23 AM CDT Riky Mejía MD HEMATOLOGY ORDERABLES Final Result Performing Organization Address [facility] Phone Number INTERFACE SYSTEM Refer to clinic/hospital department [facility] CLIA# [id number] [address] [place] [address] * (ABNORMAL) PHOSPHORUS (04/04/2008 4:19 AM CDT) PHOSPHORUS 1.9(L) 2.5 - 4.6 mg/dL [facility] Blood specimen (specimen) 04/04/2008 4:19 AM CDT 04/04/2008 4:23 AM CDT us Riky Mejía MD CHEMISTRY ORDERABLES Final Result Performing Organization Address [facility] Phone Number INTERFACE SYSTEM Refer to clinic/hospital department [facility] CLIA# [id number] [address] [place] [address] * MAGNESIUM LEVEL (04/04/2008 4:19 AM CDT) MAGNESIUM 1.8 1.7 - 2.4 mg/dL [facility] Blood specimen (specimen) 04/04/2008 4:19 AM CDT 04/04/2008 4:23 AM CDT us Riky Mejía MD CHEMISTRY ORDERABLES Final Result Performing Organization Address [facility] Phone Number INTERFACE SYSTEM Refer to clinic/[facility] CLIA# [id number] [address] [place] [address] * (ABNORMAL) COMPREHENSIVE METABOLIC PANEL (04/04/2008 4:19 AM CDT) ALBUMIN/GLOBULIN RATIO 1.4 1.0 - 2.3 [facility] POTASSIUM 3.3(L) 3.5 - 5.0 mEq/L [facility] ANION GAP 11 9 - 20 mEq/L [facility] ALBUMIN 3.0(L) 3.5 - 5.0 g/dL [facility] CREATININE 2.1(H) 0.7 - 1.2 mg/dL [facility] ALT 20 4 - 36 IU/L [facility] CALCIUM 8.3(L) 8.4 - 10.5 mg/dL [facility] GLUCOSE 124(H) 70 - 110 mg/dL [facility] ALKALINE PHOSPHATASE 42 25 - 100 U/L [facility] CHLORIDE 111(H) 95 - 110 mEq/L [facility] OSMOLALITY, CALCULATED 310(H) 275 - 295 mOsm/Kg [facility] GLOBULIN (CALC) 2.2(L) 2.4 - 3.9 g/dL [facility] TOTAL PROTEIN 5.2(L) 6.3 - 8.2 g/dL [facility] SODIUM 146(H) 136 - 145 mEq/L [facility] BILIRUBIN TOTAL 0.9 0.3 - 1.2 mg/dL [facility] CO2 27 22 - 32 mmol/l [facility] BUN 42(H) 7 - 17 mg/dL [facility] AST 104(H) 8 - 33 U/L [facility] Blood specimen (specimen) 04/04/2008 4:19 AM CDT 04/04/2008 4:23 AM CDT us Riky Mejía MD CHEMISTRY ORDERABLES Final Result INTERFACE SYSTEM Refer to clinic/hospital department [facility] CLIA# [id number] [address] [place] [address] * (ABNORMAL) CBC WITH DIFFERENTIAL (04/04/2008 4:19 AM CDT) HEMATOCRIT 28.7(L) 36.0 - 46.0 % [facility] EOSINOPHILS 0.2 0.0 - 7.0 % [facility] PLATELETS 83(L) 140 - 440 K/ul [facility] PERIPHERAL BLOOD SMEAR REVIEW Automated Diff [facility] EOSINOPHIL ABSOLUTE 0.0 0.0 - 0.7 K/ul [facility] RBC 3.33(L) 4.20 - 5.40 Mil/ul [facility] LYMPHOCYTES 12.1(L) 24.0 - 44.0 % [facility] MCHC 33.4 30.0 - 35.0 g/dL [facility] LYMPHOCYTE ABSOLUTE 1.1(L) 1.2 - 4.0 K/ul [facility] MCV 86.2 84.0 - 103.[address] [facility] MPV 11.5 8.9 - 12.[address] [facility] BASOPHILS ABSOLUTE 0.0 0.0 - 0.2 K/ul [facility] BASOPHILS 0.2 0.0 - 1.0 % [facility] HEMOGLOBIN 9.6(L) 12.0 - 16.0 g/dL [facility] RDW 16.1(H) 11.0 - 14.5 % [facility] MONOCYTE ABSOLUTE 1.0(H) 0.1 - 0.6 K/ul [facility] MONOCYTES 10.5(H) 2.0 - 10.0 % [facility] WBC 9.0 4.5 - 11.0 K/ul [facility] MCH 28.8 27.0 - 34.[address] [facility] NEUTROPHIL ABSOLUTE 6.9 2.0 - 8.0 K/ul [facility] NEUTROPHILS 77.0(H) 42.2 - 75.2 % [facility] Blood specimen (specimen) 04/04/2008 4:19 AM CDT 04/04/2008 4:23 AM CDT us Riky Mejía MD HEMATOLOGY ORDERABLES Final Result INTERFACE SYSTEM Refer to clinic/hospital department [facility] CLIA# [id number] [facility] [place] [address] * (ABNORMAL) POC ISTAT EG 7+ (04/04/2008 4:07 AM CDT) POTASSIUM 3.1(L) 3.5 - 4.9 mEq/L [facility] PH TEMP CORRECT 7.45 7.35 - 7.[address] [facility] HCO3 (CALC) POC 24.5 22.0 - 26.0 mmol/l [facility] TCO2 (CALC) POC 26 23 - 27 mmol/l [facility] FIO2 50 [facility] PO2 138(H) 80 - [address] [facility] CALCIUM IONIZED 1.10(L) 1.12 - 1.32 mmol/l [facility] HEMATOCRIT ABG 25(L) 38 - 51 % [facility] PCO2 POC 35 35 - [address] [facility] SODIUM 143 138 - 146 mEq/L [facility] BASE EXCESS 1 -2 - 3 mmol/l [facility] PH 7.45 7.35 - 7.[address] [facility] O2 SATURATION 99(H) 95 - 98 % [facility] PO2 TEMP CORRECT 138(H) 80 - [address] [facility] SPECIMEN TYPE Arterial [facility] Comment: Test Performed By [id number] Tidal volume: 500 PEEP: 10 Rate: 14 Pulse OX: 100 Hemoglobin calculated from Hematocrit result PCO2 TEMP CORRECT 35 35 - [address] [facility] HEMOGLOBIN POC 8.5 +/-3 g/dL 12.0 - 16.0 g/dL [facility] Arterial blood specimen (specimen) 04/04/2008 4:07 AM CDT 04/04/2008 5:13 AM CDT us Riky Mejía MD POINT OF CARE TESTING COM F inal Result INTERFACE SYSTEM Refer to clinic/hospital department [facility] CLIA# [id number] [address] [place] [address] * MRSA CULTURE (04/03/2008 9:03 PM CDT) FINAL REPORT Culture screen for MRSA negative INTERFACE SYSTEM 04/03/2008 9:03 PM CDT 04/03/2008 9:03 PM CDT Riky Mejía MD MICROBIOLOGY - GENERAL ORDE RABLES Final Result Performing Organization Address [facility] Co de Phone Number INTERFACE SYSTEM Refer to clinic/hospital department * XR CHEST PA OR AP (04/03/2008 8:55 PM CDT) Anatomical Region Laterality Modality Chest Other 04/03/2008 8:55 PM CDT Narrative 04/04/2008 5:55 PM CDT Portable view of the chest was obtained. History is postop hemorrhage. The ET tube is well positioned. There is a poor inspiratory effort. ??The heart size is upper limits of normal. There is mild bibasilar atelectasis. No pneumothorax is seen. Impression: Bibasilar atelectasis. - Dictated By: ??Heriberto Estrella M.D. Electronically Signed By: ??Heriberto Estrella M.D. Date Signed: 04/04/08 Procedure Note Heriberto Estrella W - 04/04/2008 Portable view of the chest was obtained. History is postop hemorrhage. The ET tube is well positioned. There is a poor inspiratory effort. Theheart size is upper limits of normal. There is mild bibasilar atelectasis. No pneumothorax is seen. Impression: Bibasilar atelectasis. - Dictated By: Heriberto Estrella M.D. Electronically Signed By: Heriberto Estrella M.D. Date Signed: 04/04/08 Riky Mejía MD DIAGNOSTIC IMAGING ORDERABL ES Final Result * (ABNORMAL) POC ISTAT EG 7+ (04/03/2008 8:35 PM CDT) CALCIUM IONIZED 1.00(L) 1.12 - 1.32 mmol/l [facility] HEMATOCRIT ABG 24(L) 38 - 51 % [facility] PCO2 POC 36 35 - [address] [facility] SODIUM 144 138 - 146 mEq/L [facility] BASE EXCESS 0 -2 - 3 mmol/l [facility] PH 7.44 7.35 - 7.[address] [facility] O2 SATURATION 98 95 - 98 % [facility] PO2 TEMP CORRECT 101 80 - [address] [facility] SPECIMEN TYPE Arterial [facility] Comment: Test Performed By [id number] Tidal volume: 500 PEEP: 10 Rate: 16 Pulse OX: 96 Hemoglobin calculated from Hematocrit result PCO2 TEMP CORRECT 36 35 - [address] [facility] HEMOGLOBIN POC 8.2 +/-3 g/dL 12.0 - 16.0 g/dL [facility] POTASSIUM 3.2(L) 3.5 - 4.9 mEq/L [facility] PH TEMP CORRECT 7.44 7.35 - 7.[address] [facility] HCO3 (CALC) POC 23.9 22.0 - 26.0 mmol/l [facility] TCO2 (CALC) POC 25 23 - 27 mmol/l [facility] FIO2 60 [facility] PO2 101 80 - [address] [facility] Arterial blood specimen (specimen) 04/03/2008 8:35 PM CDT 04/03/2008 8:48 PM CDT us Riky Mejía MD POINT OF CARE TESTING COM F inal Result INTERFACE SYSTEM Refer to clinic/hospital department [facility] CLIA# [id number] [facility] [place] [address] * TYPE AND CROSSMATCH (04/03/2008 8:13 PM CDT) [facility] BLOOD BANK PRODUCT INTERFACE SYSTEM Blood specimen (specimen) 04/03/2008 8:13 PM CDT 04/03/2008 8:17 PM CDT us Riky Mejía MD BLOOD BANK ORDERABLES Edite d INTERFACE SYSTEM Refer to clinic/hospital department * (ABNORMAL) CBC WITH DIFFERENTIAL (04/03/2008 8:13 PM CDT) [facility] HEMATOCRIT 26.9(L) 36.0 - 46.0 % [facility] PLATELETS 102(L) 140 - 440 K/ul [facility] EOSINOPHIL ABSOLUTE 0.0 0.0 - 0.7 K/ul [facility] EOSINOPHILS 0.1 0.0 - 7.0 % [facility] RBC 3.13(L) 4.20 - 5.40 Mil/ul [facility] MCHC 33.8 30.0 - 35.0 g/dL [facility] LYMPHOCYTE ABSOLUTE 1.1(L) 1.2 - 4.0 K/ul [facility] LYMPHOCYTES 12.2(L) 24.0 - 44.0 % [facility] MCV 85.9 84.0 - 103.[address] [facility] BASOPHILS 0.1 0.0 - 1.0 % [facility] MPV 11.7 8.9 - 12.[address] [facility] BASOPHILS ABSOLUTE 0.0 0.0 - 0.2 K/ul [facility] HEMOGLOBIN 9.1(L) 12.0 - 16.0 g/dL [facility] MONOCYTES 11.9(H) 2.0 - 10.0 % [facility] RDW 16.2(H) 11.0 - 14.5 % [facility] MONOCYTE ABSOLUTE 1.1(H) 0.1 - 0.6 K/ul [facility] WBC 9.0 4.5 - 11.0 K/ul [facility] NEUTROPHILS 75.7(H) 42.2 - 75.2 % [facility] MCH 29.1 27.0 - 34.[address] [facility] NEUTROPHIL ABSOLUTE 6.8 2.0 - 8.0 K/ul [facility] Blood specimen (specimen) 04/03/2008 8:13 PM CDT 04/03/2008 8:17 PM CDT us Riky Mejía MD HEMATOLOGY ORDERABLES Final Result Performing Organization Address City/[facility] de Phone Number INTERFACE SYSTEM Refer to clinic/hospital department [facility] CLIA# [id number] [address] [place] [id number] * PTT (04/03/2008 8:13 PM CDT) PTT 28.1 22.5 - 36.[address] [facility] Comment: Therapeutic Range: ?? Hi-level PE/DVT heparin protocol 80.1 -95.0 ??sec ? Lo-level PE/DVT ??heparin protocol ??67.1 - ??80.0 sec ?? Cardiac Heparin Protocol 67.1 - 85.0 sec ?? Neuro Heparin Protocol 67.1 - 80.0 sec As of 09/25/2007 note change in APTT Normal Range. Blood specimen (specimen) 04/03/2008 8:13 PM CDT 04/03/2008 8:17 PM CDT us Riky Mejía MD HEMATOLOGY ORDERABLES Final Result Performing Organization Address City/[facility] de Phone Number INTERFACE SYSTEM Refer to clinic/hospital department [facility] CLIA# [id number] [address] [place] [id number] * (ABNORMAL) PROTIME-INR (04/03/2008 8:13 PM CDT) INR 1.2 [facility] Comment: Expected Values for INR: DVT/PE ?Goal INR 2.5; range 2.0 - 3.0 Valve Replacement ? Tissue ? Goal INR 2.5; range 2.0 - 3.0 ? Mechanical ?Goal INR 3.0; range 2.5 - 3.5 POST-WI ?Goal INR 2.5; range 2.0 - 3.0 ??or Goal 3.0; range 2.5 - 3.5 Atrial Fibrillation ?Goal INR 2.5; range 2.0 - 3.0 Ischemic Stroke ?Goal INR 2.5; range 2.0 - 3.0 For additional information see Guidelines for Anticoagulation available from the pharmacy [facility] ??[phone] PROTIME 16.3(H) 12.8 - 15.[address] [facility] Comment:As of 2007 not e change in normal range. Blood specimen (specimen) 04/03/2008 8:13 PM CDT 04/03/2008 8:17 PM CDT us Riky Mejía MD HEMATOLOGY ORDERABLES Final Result INTERFACE SYSTEM Refer to clinic/hospital department [facility] CLIA# [id number] [address] [place] [address] * ANTIBODY SCREEN (04/03/2008 8:13 PM CDT) ANTIBODY SCREEN Negative [facility] Blood specimen (specimen) 04/03/2008 8:13 PM CDT 04/03/2008 8:17 PM CDT us Riky Mejía MD BLOOD BANK ORDERABLES Final Result Performing Organization Address City/[facility] de Phone Number INTERFACE SYSTEM Refer to clinic/hospital department [facility] CLIA# [id number] [address] [place] [address] * ABORH TYPING (04/03/2008 8:13 PM CDT) Pathologist [facility] ABO/RH TYPE O Positive [facility] Blood specimen (specimen) 04/03/2008 8:13 PM CDT 04/03/2008 8:17 PM CDT Riky Mejía MD BLOOD BANK ORDERABLES Final Result Performing Organization Address [facility] de Phone Number INTERFACE SYSTEM Refer to clinic/hospital department [facility] CLIA# [id number] [address] [place] [address] * (ABNORMAL) COMPREHENSIVE METABOLIC PANEL (04/03/2008 8:13 PM CDT) Pathologist [facility] GLUCOSE 140(H) 70 - 110 mg/dL [facility] ALKALINE PHOSPHATASE 40 25 - 100 U/L [facility] CHLORIDE 112(H) 95 - 110 mEq/L [facility] AST 97(H) 8 - 33 U/L [facility] GLOBULIN (CALC) 1.9(L) 2.4 - 3.9 g/dL [facility] TOTAL PROTEIN 4.9(L) 6.3 - 8.2 g/dL [facility] SODIUM 146(H) 136 - 145 mEq/L [facility] ANION GAP 11 9 - 20 mEq/L [facility] CO2 26 22 - 32 mmol/l [facility] BUN 47(H) 7 - 17 mg/dL [facility] ALT 19 4 - 36 IU/L [facility] ALBUMIN/GLOBULIN RATIO 1.6 1.0 - 2.3 [facility] POTASSIUM 3.2(L) 3.5 - 5.0 mEq/L [facility] OSMOLALITY, CALCULATED 312(H) 275 - 295 mOsm/Kg [facility] ALBUMIN 3.0(L) 3.5 - 5.0 g/dL [facility] CREATININE 2.9(H) 0.7 - 1.2 mg/dL [facility] BILIRUBIN TOTAL 0.6 0.3 - 1.2 mg/dL [facility] CALCIUM 7.6(L) 8.4 - 10.5 mg/dL [facility] Blood specimen (specimen) 04/03/2008 8:13 PM CDT 04/03/2008 8:17 PM CDT Riky Mejía MD CHEMISTRY ORDERABLES Edited INTERFACE SYSTEM Refer to clinic/hospital department [facility] CLIA# [id number] [address] [place] [address] documented in this encounter Visit Diagnoses Not on filedocumented in this encounter Additional Health Concerns Infection Onset Date Last Indicated Resolved Time MRSA Comment:Kapil 10/26/15 10/27/2015 10/27/2015 documented as of this encounter Care Teams Bath Mix Operator Relationship Specialty Start Date End Date Jose Bowers MD [address] [place] [id number] PCP - General 12/31/05 documented as of this encounter
--- OUTSIDE RECORDS SUMMARY | 2024-08-18 18:45 | XMS_ITS | Encounter Summary ---
Author Organization [facility] Address [address] [place] [address] Care Team Providers Care Registered Nurses Name Role Phone Jose Bowers MD Primary Care Provider Unavailab le Encounter Details Date Type Department Care Team (Late st Contact Info) Description 07/10/2007 Outpatient [facility] [address] [place] [address] Ramana Juarez MD [address] [place] [address] Social History Tobacco Use Types Packs/Day Years Used Date Smoking Tobacco: Never Assessed Comments Unknown Sex and Gender Information Value Date Recorded Sex Assigned at Not on file Legal Sex Female 6:28 AM [employer]LEGE [employer] Gender Identity Not on file Sexual Orientation Not on file documented as of this encounter Plan of Treatment Not on file documented as of this encounter Visit Diagnoses Not on filedocumented in this encounter Additional Health Concerns Infection Onset Date Last Indicated Resolved Time MRSA Comment:Kapil 10/26/15 10/27/2015 10/27/2015 documented as of this encounter Care Teams Registered Nurses Relationship Specialty Start Date End Date Jose Bowers MD [address] [place] [address] PCP - General 12/31/05 documented as of this encounter
--- OUTSIDE RECORDS SUMMARY | 2024-08-18 18:45 | XMS_ITS | Encounter Summary ---
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 ?? The new reference ranges are Males 38-174 ? Females 26-140 The old referance ranges were Males 0-155 ?Females 0-133 12/31/2005 12:4 8 PM CDT Jose Bowers MD CHEMISTRY ORDERABLES Final Resul t Performing Organization Address [facility] Phone Number INTERFACE SYSTEM Refer to clinic/hospital department * C-REACTIVE PROTEIN (12/31/2005 12:48 PM CDT) CRP 0.85 0.00 - 1.00 mg/dL INTERFACE SYSTEM 12/31/2005 12:4 8 PM CDT Jose Bowers MD CHEMISTRY ORDERABLES Final Resul t Performing Organization Address [facility] Number INTERFACE SYSTEM Refer to clinic/hospital department * SEDIMENTATION RATE (12/31/2005 12:48 PM CDT) ESR (SEDIMENTATION RATE) 18 0 - 22 mm/hr INTERFACE SYSTEM 12/31/2005 12:4 8 PM CDT Jose Bowers MD HEMATOLOGY ORDERABLES Final Resu lt Performing Organization Address [facility] Phone Number INTERFACE SYSTEM Refer to clinic/hospital department * CBC WITH DIFFERENTIAL (12/31/2005 12:48 PM CDT) WBC 4.7 4.5 - 11.0 K/ul INTERFACE SYSTEM RBC 4.35 4.20 - 5.40 Mil/ul INTERFACE SYSTEM HEMOGLOBIN 13.4 12.0 - 16.0 g/dL INTERFACE SYSTEM HEMATOCRIT 39.3 36.0 - 46.0 % INTERFACE SYSTEM MCV 90.3 84.0 - 103.0 Fl INTERFACE SYSTEM MCH 30.8 27.0 - 34.0 pg INTERFACE SYSTEM MCHC 34.1 30.0 - 35.0 g/dL INTERFACE SYSTEM RDW 13.1 11.0 - 14.5 % INTERFACE SYSTEM PLATELETS 218 140 - 440 K/ul INTERFACE SYSTEM MPV 11.0 8.9 - 12.8 Fl INTERFACE SYSTEM NEUTROPHILS 53.9 42.2 - 75.2 % INTERFACE SYSTEM LYMPHOCYTES 29.4 24.0 - 44.0 % INTERFACE SYSTEM MONOCYTES 9.2 2.0 - 10.0 % INTERFACE SYSTEM EOSINOPHILS 6.6 0.0 - 7.0 % INTERFACE SYSTEM BASOPHILS 0.9 0.0 - 1.0 % INTERFACE SYSTEM NEUTROPHIL ABSOLUTE 2.5 2.0 - 8.0 K/uL INTERFACE SYSTEM LYMPHOCYTE ABSOLUTE 1.4 1.2 - 4.0 K/ul INTERFACE SYSTEM MONOCYTE ABSOLUTE 0.4 0.1 - 0.6 K/ul INTERFACE SYSTEM EOSINOPHIL ABSOLUTE 0.3 0.0 - 0.7 K/ul INTERFACE SYSTEM BASOPHILS ABSOLUTE 0.0 0.0 - 0.2 K/ul INTERFACE SYSTEM 12/31/2005 12:4 8 PM CDT us Jose Bowers MD HEMATOLOGY ORDERABLES Final Resu lt INTERFACE SYSTEM Refer to clinic/hospital department documented in this encounter Visit Diagnoses Diagnosis Paraplegia (CMS/HCC)- Primary Paraplegia documented in this encounter Additional Health Concerns Infection Onset Date Last Indicated Resolved Time MRSA Comment:Kapil 10/26/15 10/27/2015 10/27/2015 documented as of this encounter Care Teams Vulcanizer Operator Relationship Specialty Start Date End Date Jose Bowers MD [address] [place] [id number] PCP - General 12/31/05 documented as of this encounter
--- OUTSIDE RECORDS SUMMARY | 2024-08-18 18:45 | XMS_ITS | Encounter Summary ---
Author Organization [facility] Address [address] [place] [address] Care Team Providers Care Pattern Duplicator Name Role Phone Jose Bowers MD Primary Care Provider Levon le Encounter Details Date Type Department Care Team (Late st Contact Info) Description 05/01/2008 Outpatient Historical HIS IN BED Sj Ed, Physician NO ADDRESS ON FILE Cassie Woodruff MD [address] [place] [id number] Riky Mejía MD NO ADDRESS ON FILE Pressure Ulcer, Buttock; Pressure Ulcer, Lower Back; Paraplegia (CMS/HCC); Pulmonary Collapse; Body Mass Index 40 and Over, Adult; Morbid Obesity (CMS/HCC); Colostomy Status (CMS/HCC); Personal History of Venous Thrombosis and Embolism; Nausea Alone; Esophageal Reflux; Fever, Unspecified; Unspecified Debility; Pressure Ulcer, Stage II (CMS/HCC); Perforation of Intestine (CMS/HCC); Abn React-Procedure; Peritoneal Abscess (CMS/HCC); Unspecified Protein-Calorie Malnutrition; Pressure Ulcer, Stage IV (CMS/HCC); Pressure Ulcer, Upper Back; Pressure Ulcer, Stage III (CMS/HCC); Abn Reac-Organ Rem NEC Social History Tobacco Use Types Packs/Day Years Used Date Smoking Tobacco: Never Assessed Comments Unknown Sex and Gender Information Value Date Recorded Sex Assigned at Not on file Legal Sex Female 6:28 AM ANIMAL CARETAKER SUPERVISOR Gender Identity Not on file Sexual Orientation Not on file documented as of this encounter Plan of Treatment Not on file documented as of this encounter Procedures Procedure Name Priority Date/Time Associated Diagnosis Comments POC GLUCOSE Routine 05/12/2008 7:37 AM ANIMAL CARETAKER SUPERVISOR POC GLUCOSE Routine 05/11/2008 9:43 PM ANIMAL CARETAKER SUPERVISOR POC GLUCOSE Routine 05/11/2008 5:35 PM ANIMAL CARETAKER SUPERVISOR POC GLUCOSE Routine 05/11/2008 11:40 AM ANIMAL CARETAKER SUPERVISOR POC GLUCOSE Routine 05/11/2008 7:38 AM ANIMAL CARETAKER SUPERVISOR POC GLUCOSE Routine 05/10/2008 9:54 PM ANIMAL CARETAKER SUPERVISOR POC GLUCOSE Routine 05/10/2008 5:34 PM ANIMAL CARETAKER SUPERVISOR POC GLUCOSE Routine 05/10/2008 12:08 PM ANIMAL CARETAKER SUPERVISOR POC GLUCOSE Routine 05/10/2008 8:31 AM ANIMAL CARETAKER SUPERVISOR CBC WITH DIFFERENTIAL Routine 05/10/2008 5:47 AM ANIMAL CARETAKER SUPERVISOR COMPREHENSIVE METABOLIC PANEL Routine 05/10/2008 5:47 AM ANIMAL CARETAKER SUPERVISOR POC GLUCOSE Routine 05/09/2008 9:17 PM ANIMAL CARETAKER SUPERVISOR POC GLUCOSE Routine 05/09/2008 6:31 PM ANIMAL CARETAKER SUPERVISOR POC GLUCOSE Routine 05/09/2008 12:20 PM ANIMAL CARETAKER SUPERVISOR POC GLUCOSE Routine 05/09/2008 8:50 AM ANIMAL CARETAKER SUPERVISOR POC GLUCOSE Routine 05/08/2008 8:06 PM CDT POC GLUCOSE Routine 05/08/2008 6:26 PM CDT POC GLUCOSE Routine 05/08/2008 12:27 PM CDT CBC WITH DIFFERENTIAL Routine 05/08/2008 7:35 AM CDT POC GLUCOSE Routine 05/08/2008 5:15 AM CDT POC GLUCOSE Routine 05/07/2008 8:43 PM CDT POC GLUCOSE Routine 05/07/2008 5:13 PM CDT POC GLUCOSE Routine 05/07/2008 12:06 PM CDT POC GLUCOSE Routine 05/07/2008 8:20 AM CDT POC GLUCOSE Routine 05/07/2008 5:22 AM CDT POC GLUCOSE Routine 05/06/2008 8:[address] ABDOMEN PELVIS W CONTRAST Routine 05/06/2008 6:21 PM CDT POC GLUCOSE Routine 05/06/2008 5:38 PM CDT POC GLUCOSE Routine 05/06/2008 12:55 PM CDT POC GLUCOSE Routine 05/06/2008 8:03 AM CDT CBC WITH DIFFERENTIAL Routine 05/06/2008 5:34 AM CDT BASIC METABOLIC PANEL Routine 05/06/2008 5:34 AM CDT POC GLUCOSE Routine 05/05/2008 8:26 PM CDT POC GLUCOSE Routine 05/05/2008 4:57 PM CDT POC GLUCOSE Routine 05/05/2008 11:30 AM CDT POC GLUCOSE Routine 05/05/2008 8:05 AM CDT POC GLUCOSE Routine 05/04/2008 9:56 PM CDT POC GLUCOSE Routine 05/04/2008 5:34 PM CDT POC GLUCOSE Routine 05/04/2008 11:15 AM CDT URINE CULTURE Stat 05/04/2008 9:06 AM CDT POC GLUCOSE Routine 05/04/2008 7:37 AM CDT ICTOTEST Stat 05/04/2008 2:12 AM CDT URINALYSIS MICROSCOPY ONLY Stat 05/04/2008 2:12 AM CDT URINALYSIS W/REFLEX MICROSCOPIC Stat 05/04/2008 2:12 AM CDT BLOOD CULTURE Stat 05/04/2008 2:02 AM CDT CBC WITH DIFFERENTIAL Routine 05/04/2008 1:55 AM CDT BLOOD CULTURE Stat 05/04/2008 1:55 AM CDT BASIC METABOLIC PANEL Routine 05/04/2008 1:55 AM CDT POC GLUCOSE Routine 05/03/2008 9:24 PM CDT POC GLUCOSE Routine 05/03/2008 4:[address] ABDOMEN PELVIS W CONTRAST Routine 05/03/2008 3:02 PM CDT XR CHEST PA OR AP 1 VW Routine 9:59 AM CDT PT AND APTT Stat 05/03/2008 9:00 AM CDT CBC WITH DIFFERENTIAL Routine 05/03/2008 5:39 AM CDT BASIC METABOLIC PANEL Routine 05/03/2008 5:39 AM CDT URINE CULTURE Routine 05/02/2008 10:05 PM CDT ICTOTEST Routine 05/02/2008 9:19 PM CDT URINALYSIS MICROSCOPY ONLY Routine 05/02/2008 9:19 PM CDT URINALYSIS W/REFLEX MICROSCOPIC Routine 05/02/2008 9:19 PM CDT BASIC METABOLIC PANEL Stat 05/02/2008 6:50 PM CDT BASIC METABOLIC PANEL Routine 05/02/2008 8:38 AM CDT CBC WITH DIFFERENTIAL Routine 05/02/2008 6:55 AM CDT documented in this encounter Results * (ABNORMAL) POC GLUCOSE (05/12/2008 7:37 AM ANIMAL CARETAKER SUPERVISOR) GLUCOSE POC 124(H) 60 - 100 mg/dL [facility] Venous blood specimen (specimen) 05/12/2008 7:37 AM ANIMAL CARETAKER SUPERVISOR 05/13/2008 3:52 AM ANIMAL CARETAKER SUPERVISOR us Riky Mejía MD POINT OF CARE TESTING Final Result Performing Organization Address [facility] Phone Number INTERFACE SYSTEM Refer to clinic/hospital department [facility] CLIA# [id number] [address] [place] [address] * (ABNORMAL) POC GLUCOSE (05/11/2008 9:43 PM ANIMAL CARETAKER SUPERVISOR) GLUCOSE POC 123(H) 60 - 100 mg/dL [facility] Venous blood specimen (specimen) 05/11/2008 9:43 PM ANIMAL CARETAKER SUPERVISOR 05/12/2008 3:33 AM ANIMAL CARETAKER SUPERVISOR us Riky Mejía MD POINT OF CARE TESTING Final Result Performing Organization Address [facility] de Phone Number INTERFACE SYSTEM Refer to clinic/hospital department [facility] CLIA# [id number] [address] [place] [address] * (ABNORMAL) POC GLUCOSE (05/11/2008 5:35 PM ANIMAL CARETAKER SUPERVISOR) GLUCOSE POC 117(H) 60 - 100 mg/dL [facility] Venous blood specimen (specimen) 05/11/2008 5:35 PM ANIMAL CARETAKER SUPERVISOR 05/12/2008 3:33 AM ANIMAL CARETAKER SUPERVISOR Riky Mejía MD POINT OF CARE TESTING Final Result Performing Organization Address City/[facility] de Phone Number INTERFACE SYSTEM Refer to clinic/hospital department [facility] CLIA# [id number] [address] [place] [address] * (ABNORMAL) POC GLUCOSE (05/11/2008 11:40 AM ANIMAL CARETAKER SUPERVISOR) GLUCOSE POC 132(H) 60 - 100 mg/dL [facility] Venous blood specimen (specimen) 05/11/2008 11:40 AM ANIMAL CARETAKER SUPERVISOR 05/12/2008 3:30 AM ANIMAL CARETAKER SUPERVISOR Riky Mejía MD POINT OF CARE TESTING Final Result Performing Organization Address [facility] Phone Number INTERFACE SYSTEM Refer to clinic/hospital department [facility] CLIA# [id number] [address] [place] [address] * (ABNORMAL) POC GLUCOSE (05/11/2008 7:38 AM ANIMAL CARETAKER SUPERVISOR) GLUCOSE POC 121(H) 60 - 100 mg/dL [facility] Venous blood specimen (specimen) 05/11/2008 7:38 AM ANIMAL CARETAKER SUPERVISOR 05/12/2008 3:33 AM ANIMAL CARETAKER SUPERVISOR Riky Mejía MD POINT OF CARE TESTING Final Result Performing Organization Address [facility] de Phone Number INTERFACE SYSTEM Refer to clinic/[facility] CLIA# [id number] [address] [place] [address] * (ABNORMAL) POC GLUCOSE (05/10/2008 9:54 PM ANIMAL CARETAKER SUPERVISOR) GLUCOSE POC 122(H) 60 - 100 mg/dL [facility] Venous blood specimen (specimen) 05/10/2008 9:54 PM ANIMAL CARETAKER SUPERVISOR 05/11/2008 4:24 AM ANIMAL CARETAKER SUPERVISOR Riky Mejía MD POINT OF CARE TESTING Final Result Performing Organization Address City/[facility] Phone Number INTERFACE SYSTEM Refer to clinic/hospital department [facility] CLIA# [id number] [address] [place] [address] * (ABNORMAL) POC GLUCOSE (05/10/2008 5:34 PM ANIMAL CARETAKER SUPERVISOR) GLUCOSE POC 111(H) 60 - 100 mg/dL [facility] Venous blood specimen (specimen) 05/10/2008 5:34 PM ANIMAL CARETAKER SUPERVISOR 05/11/2008 4:24 AM ANIMAL CARETAKER SUPERVISOR Riky Mejía MD POINT OF CARE TESTING Final Result Performing Organization Address [facility] Phone Number INTERFACE SYSTEM Refer to clinic/hospital department [facility] CLIA# [id number] [address] [place] [address] * (ABNORMAL) POC GLUCOSE (05/10/2008 12:08 PM ANIMAL CARETAKER SUPERVISOR) GLUCOSE POC 127(H) 60 - 100 mg/dL [facility] Venous blood specimen (specimen) 05/10/2008 12:08 PM ANIMAL CARETAKER SUPERVISOR 05/11/2008 4:18 AM ANIMAL CARETAKER SUPERVISOR Riky Mejía MD POINT OF CARE TESTING Final Result Performing Organization Address [facility] de Phone Number INTERFACE SYSTEM Refer to clinic/hospital department [facility] CLIA# [id number] [address] [place] [address] * (ABNORMAL) POC GLUCOSE (05/10/2008 8:31 AM ANIMAL CARETAKER SUPERVISOR) GLUCOSE POC 122(H) 60 - 100 mg/dL [facility] Venous blood specimen (specimen) 05/10/2008 8:31 AM ANIMAL CARETAKER SUPERVISOR 05/11/2008 4:18 AM ANIMAL CARETAKER SUPERVISOR Riky Mejía MD POINT OF CARE TESTING Final Result INTERFACE SYSTEM Refer to clinic/hospital department [facility] CLIA# [id number] [address] [place] [address] * (ABNORMAL) COMPREHENSIVE METABOLIC PANEL (05/10/2008 5:47 AM ANIMAL CARETAKER SUPERVISOR) GLOBULIN (CALC) 2.3(L) 2.4 - 3.9 g/dL [facility] SODIUM 141 136 - 145 mEq/L [facility] BILIRUBIN TOTAL 0.4 0.3 - 1.2 mg/dL [facility] TOTAL PROTEIN 5.0(L) 6.3 - 8.2 g/dL [facility] BUN 7 7 - 17 mg/dL [facility] AST 24 8 - 33 U/L [facility] CO2 30 22 - 32 mmol/l [facility] ALBUMIN/GLOBULIN RATIO 1.2 1.0 - 2.3 [facility] ALBUMIN 2.7(L) 3.5 - 5.0 g/dL [facility] POTASSIUM 3.3(L) 3.5 - 5.0 mEq/L [facility] ANION GAP 7(L) 9 - 20 mEq/L [facility] CALCIUM 8.0(L) 8.4 - 10.5 mg/dL [facility] CREATININE 0.4(L) 0.7 - 1.2 mg/dL [facility] ALT 10 4 - 36 IU/L [facility] GLUCOSE 99 70 - 110 mg/dL [facility] CHLORIDE 107 95 - 110 mEq/L [facility] OSMOLALITY, CALCULATED 286 275 - 295 mOsm/Kg [facility] ALKALINE PHOSPHATASE 73 25 - 100 U/L [facility] Blood specimen (specimen) 05/10/2008 5:47 AM ANIMAL CARETAKER SUPERVISOR 05/10/2008 5:52 AM ANIMAL CARETAKER SUPERVISOR Riky Mejía MD CHEMISTRY ORDERABLES Final Result INTERFACE SYSTEM Refer to clinic/hospital department [facility] CLIA# [id number] [facility] [place] [address] * (ABNORMAL) CBC WITH DIFFERENTIAL (05/10/2008 5:47 AM ANIMAL CARETAKER SUPERVISOR) LYMPHOCYTE ABSOLUTE 0.9(L) 1.2 - 4.0 K/ul [facility] MCV 96.4 84.0 - 103.0 Fl [facility] MPV 10.1 8.9 - 12.8 Fl [facility] BASOPHILS ABSOLUTE 0.0 0.0 - 0.2 K/ul [facility] BASOPHILS 0.7 0.0 - 1.0 % [facility] HEMOGLOBIN 8.3(L) 12.0 - 16.0 g/dL [facility] RDW 18.6(H) 11.0 - 14.5 % [facility] MONOCYTE ABSOLUTE 0.6 0.1 - 0.6 K/ul [facility] MONOCYTES 9.3 2.0 - 10.0 % [facility] WBC 6.1 4.5 - 11.0 K/ul [facility] MCH 29.5 27.0 - 34.0 pg [facility] NEUTROPHIL ABSOLUTE 4.3 2.0 - 8.0 K/ul [facility] NEUTROPHILS 70.5 42.2 - 75.2 % [facility] HEMATOCRIT 27.1(L) 36.0 - 46.0 % [facility] EOSINOPHILS 4.1 0.0 - 7.0 % [facility] PLATELETS 278 140 - 440 K/ul [facility] PERIPHERAL BLOOD SMEAR REVIEW Automated Diff [facility] EOSINOPHIL ABSOLUTE 0.3 0.0 - 0.7 K/ul [facility] RBC 2.81(L) 4.20 - 5.40 Mil/ul [facility] LYMPHOCYTES 15.4(L) 24.0 - 44.0 % [facility] MCHC 30.6 30.0 - 35.0 g/dL [facility] Blood specimen (specimen) 05/10/2008 5:47 AM ANIMAL CARETAKER SUPERVISOR 05/10/2008 5:52 AM ANIMAL CARETAKER SUPERVISOR us Ottoniel Vanegas MD HEMATOLOGY ORDERABLES Teresa l Result Performing Organization Address [facility] Phone Number INTERFACE SYSTEM Refer to clinic/hospital department [facility] CLIA# [id number] [address] [place] [address] * (ABNORMAL) POC GLUCOSE (05/09/2008 9:17 PM ANIMAL CARETAKER SUPERVISOR) COMMENT POC Follow Protocol [facility] GLUCOSE POC 116(H) 60 - 100 mg/dL [facility] Venous blood specimen (specimen) 05/09/2008 9:17 PM ANIMAL CARETAKER SUPERVISOR 05/10/2008 3:50 AM ANIMAL CARETAKER SUPERVISOR us Riky Mejía MD POINT OF CARE TESTING Final Result Performing Organization Address [facility] Phone Number INTERFACE SYSTEM Refer to clinic/hospital department [facility] CLIA# [id number] [address] [place] [address] * POC GLUCOSE (05/09/2008 6:31 PM ANIMAL CARETAKER SUPERVISOR) GLUCOSE POC 96 60 - 100 mg/dL [facility] Venous blood specimen (specimen) 05/09/2008 6:31 PM ANIMAL CARETAKER SUPERVISOR 05/10/2008 3:50 AM ANIMAL CARETAKER SUPERVISOR us Riky Mejía MD POINT OF CARE TESTING Final Result Performing Organization Address [facility] de Phone Number INTERFACE SYSTEM Refer to clinic/hospital department [facility] CLIA# [id number] [address] [place] [address] * (ABNORMAL) POC GLUCOSE (05/09/2008 12:20 PM ANIMAL CARETAKER SUPERVISOR) GLUCOSE POC 123(H) 60 - 100 mg/dL [facility] Venous blood specimen (specimen) 05/09/2008 12:20 PM ANIMAL CARETAKER SUPERVISOR 05/10/2008 3:50 AM ANIMAL CARETAKER SUPERVISOR Riky Mejía MD POINT OF CARE TESTING Final Result Performing Organization Address [facility] de Phone Number INTERFACE SYSTEM Refer to clinic/hospital department [facility] CLIA# [id number] [address] [place] [address] * (ABNORMAL) POC GLUCOSE (05/09/2008 8:50 AM ANIMAL CARETAKER SUPERVISOR) GLUCOSE POC 139(H) 60 - 100 mg/dL [facility] Venous blood specimen (specimen) 05/09/2008 8:50 AM ANIMAL CARETAKER SUPERVISOR 05/10/2008 3:50 AM ANIMAL CARETAKER SUPERVISOR Riky Mejía MD POINT OF CARE TESTING Final Result Performing Organization Address [facility] de Phone Number INTERFACE SYSTEM Refer to clinic/hospital department [facility] CLIA# [id number] [address] [place] [address] * (ABNORMAL) POC GLUCOSE (05/08/2008 8:06 PM CDT) GLUCOSE POC 115(H) 60 - 100 mg/dL [facility] COMMENT POC Recheck result [facility] Venous blood specimen (specimen) 05/08/2008 8:06 PM CDT 05/10/2008 7:16 AM ANIMAL CARETAKER SUPERVISOR Riky Mejía MD POINT OF CARE TESTING Final Result Performing Organization Address [facility] de Phone Number INTERFACE SYSTEM Refer to clinic/hospital department [facility] CLIA# [id number] [address] [place] [address] * (ABNORMAL) POC GLUCOSE (05/08/2008 6:26 PM CDT) COMMENT POC Recheck result [facility] GLUCOSE POC 119(H) 60 - 100 mg/dL [facility] Venous blood specimen (specimen) 05/08/2008 6:26 PM CDT 05/10/2008 7:16 AM ANIMAL CARETAKER SUPERVISOR Riky Mejía MD POINT OF CARE TESTING Final Result Performing Organization Address [facility] de Phone Number INTERFACE SYSTEM Refer to clinic/hospital department [facility] CLIA# [id number] [address] [place] [address] * (ABNORMAL) POC GLUCOSE (05/08/2008 12:27 PM CDT) [facility] GLUCOSE POC 130(H) 60 - 100 mg/dL [facility] Venous blood specimen (specimen) 05/08/2008 12:27 PM CDT 05/09/2008 1:13 AM CDT Riky Mejía MD POINT OF CARE TESTING Final Result Performing Organization Address [facility] Phone Number INTERFACE SYSTEM Refer to clinic/hospital department [facility] CLIA# [id number] [address] [place] [address] * (ABNORMAL) CBC WITH DIFFERENTIAL (05/08/2008 7:35 AM CDT) HEMOGLOBIN 8.0(L) 12.0 - 16.0 g/dL [facility] MONOCYTES 8.7 2.0 - 10.0 % [facility] RDW 18.5(H) 11.0 - 14.5 % [facility] MONOCYTE ABSOLUTE 0.7(H) 0.1 - 0.6 K/ul [facility] WBC 7.5 4.5 - 11.0 K/ul [facility] NEUTROPHILS 73.3 42.2 - 75.2 % [facility] MCH 29.7 27.0 - 34.0 pg [facility] NEUTROPHIL ABSOLUTE 5.5 2.0 - 8.0 K/ul [facility] HEMATOCRIT 25.8(L) 36.0 - 46.0 % [facility] PLATELETS 219 140 - 440 K/ul [facility] EOSINOPHIL ABSOLUTE 0.3 0.0 - 0.7 K/ul [facility] EOSINOPHILS 4.3 0.0 - 7.0 % [facility] RBC 2.69(L) 4.20 - 5.40 Mil/ul [facility] MCHC 31.0 30.0 - 35.0 g/dL [facility] LYMPHOCYTE ABSOLUTE 0.9(L) 1.2 - 4.0 K/ul [facility] LYMPHOCYTES 12.6(L) 24.0 - 44.0 % [facility] MCV 95.9 84.0 - 103.0 Fl [facility] BASOPHILS 1.1(H) 0.0 - 1.0 % [facility] MPV 10.6 8.9 - 12.8 Fl [facility] BASOPHILS ABSOLUTE 0.1 0.0 - 0.2 K/ul [facility] Blood specimen (specimen) 05/08/2008 7:35 AM CDT 05/08/2008 7:48 AM CDT us Riky Mejía MD HEMATOLOGY ORDERABLES Final Result INTERFACE SYSTEM Refer to clinic/hospital department [facility] CLIA# [id number] [facility] [place] [address] * (ABNORMAL) POC GLUCOSE (05/08/2008 5:15 AM CDT) GLUCOSE POC 132(H) 60 - 100 mg/dL [facility] Venous blood specimen (specimen) 05/08/2008 5:15 AM CDT 05/09/2008 1:13 AM CDT Riky Mejía MD POINT OF CARE TESTING Final Result Performing Organization Address [facility] de Phone Number INTERFACE SYSTEM Refer to clinic/hospital department [facility] CLIA# [id number] [address] [place] [address] * (ABNORMAL) POC GLUCOSE (05/07/2008 8:43 PM CDT) GLUCOSE POC 137(H) 60 - 100 mg/dL [facility] COMMENT POC Recheck result [facility] Venous blood specimen (specimen) 05/07/2008 8:43 PM CDT 05/10/2008 7:16 AM ANIMAL CARETAKER SUPERVISOR Riky Mejía MD POINT OF CARE TESTING Final Result Performing Organization Address [facility] de Phone Number INTERFACE SYSTEM Refer to clinic/hospital department [facility] CLIA# [id number] [address] [place] [address] * (ABNORMAL) POC GLUCOSE (05/07/2008 5:13 PM CDT) GLUCOSE POC 137(H) 60 - 100 mg/dL [facility] COMMENT POC Recheck result [facility] Venous blood specimen (specimen) 05/07/2008 5:13 PM CDT 05/10/2008 7:16 AM ANIMAL CARETAKER SUPERVISOR Riky Mejía MD POINT OF CARE TESTING Final Result Performing Organization Address [facility] de Phone Number INTERFACE SYSTEM Refer to clinic/hospital department [facility] CLIA# [id number] [address] [place] [address] * (ABNORMAL) POC GLUCOSE (05/07/2008 12:06 PM CDT) COMMENT POC Notify RN [facility] GLUCOSE POC 159(H) 60 - 100 mg/dL [facility] Venous blood specimen (specimen) 05/07/2008 12:06 PM CDT 05/08/2008 3:26 AM CDT Riky Mejía MD POINT OF CARE TESTING Final Result Performing Organization Address [facility] de Phone Number INTERFACE SYSTEM Refer to clinic/hospital department [facility] CLIA# [id number] [address] [place] [address] * (ABNORMAL) POC GLUCOSE (05/07/2008 8:20 AM CDT) GLUCOSE POC 135(H) 60 - 100 mg/dL [facility] COMMENT POC Notify R.N [facility] Venous blood specimen (specimen) 05/07/2008 8:20 AM CDT 05/08/2008 3:26 AM CDT Riky Mejía MD POINT OF CARE TESTING Final Result Performing Organization Address [facility] de Phone Number INTERFACE SYSTEM Refer to clinic/hospital department [facility] CLIA# [id number] [address] [place] [address] * (ABNORMAL) POC GLUCOSE (05/07/2008 5:22 AM CDT) GLUCOSE POC 133(H) 60 - 100 mg/dL [facility] Venous blood specimen (specimen) 05/07/2008 5:22 AM CDT 05/08/2008 3:25 AM CDT us Riky Mejía MD POINT OF CARE TESTING Final Result Performing Organization Address City/[facility] de Phone Number INTERFACE SYSTEM Refer to clinic/hospital department [facility] CLIA# [id number] [address] [place] [address] * (ABNORMAL) POC GLUCOSE (05/06/2008 8:39 PM CDT) GLUCOSE POC 116(H) 60 - 100 mg/dL [facility] COMMENT POC Notify R.N [facility] Venous blood specimen (specimen) 05/06/2008 8:39 PM CDT 05/07/2008 3:27 AM CDT us Riky Mejía MD POINT OF CARE TESTING Final Result INTERFACE SYSTEM Refer to clinic/hospital department [facility] CLIA# [id number] [address] [place] [address] * CT ABDOMEN PELVIS W CONTRAST (05/06/2008 6:21 PM CDT) Anatomical Region Laterality Modality Abdomen Other 05/06/2008 6:21 PM CDT Narrative 05/06/2008 7:31 PM CDT Axial images were obtained through the abdomen and pelvis during IV contrast administration. 125 mL of Optiray 240 were given. History: Abdominal pain, abscess. Right basilar atelectasis is present. An IVC filter is noted. 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 There appears to be a recent midline incision. A small amount of associated air which is probably within normal limits. At the level of the superior pelvic bones there is possible fluid collection and/or evolving small phlegmon in the abdominal anterior soft tissues. This measures a few cm in size and is just to the right of midline. The liver, gallbladder, spleen, pancreas and adrenal glands are unremarkable. Kidneys show no significant abnormality. There is a left lower quadrant ostomy. No abnormal fluid collection is seen intra- abdominally that would suggest an abscess. Impression: Findings suggest a recent midline incision with possible small evolving phlegmon to the right of midline as described above. No definite abscess seen. Mild right basilar atelectasis. When compared to exam from 05/03/2008, the findings appear essentially unchanged with redemonstration of the right basilar atelectasis and midline incision. The region of the above-described possible phlegmon is also unchanged and is probably just postsurgical change without infectious etiology. Followup could be obtained as clinically indicated. - Dictated By: ??Heriberto Estrella M.D. Electronically Signed By: ??Heriberto Estrella M.D. Date Signed: 05/06/08 Procedure Note Sameer Heriberto W - 05/06/2008 Axial images were obtained through the abdomen and pelvis during IVcontrast administration. 125 mL of Optiray 240 were given. History: Abdominal pain, abscess. Right basilar atelectasis is present. An IVC filter is noted. Nosignificant bony abnormality is identified aside from pars defects bilaterally at L5. There appears to osvaldo recent midline incision. A small amount of associated air which is probably within normal limits. Atthe level of the superior pelvic bones there is possible fluid collection and/or evolving smallphlegmon in the abdominal anterior soft tissues. This measures a few cm in size and is just to the right ofmidline. The liver, gallbladder, spleen, pancreas and adrenal glands are unremarkable. Kidneys show nosignificant abnormality. There is a left lower quadrant ostomy. No abnormal fluid collection is seenintra- abdominally that would suggest an abscess. Impression: Findings suggest a recent midline incision with possible smallevolving phlegmon to the right of midline as described above. No definite abscess seen. Mild rightbasilar atelectasis. When compared to exam from 05/03/2008, the findings appear essentially unchanged withredemonstration of the right basilar atelectasis and midline incision. The region of theabove-described possible phlegmon is also unchanged and is probably just postsurgical change without infectiousetiology. Followup could be obtained as clinically indicated. - Dictated By: Heriberto Estrella M.D. Electronically Signed By: Heriberto Estrella M.D. Date Signed: 05/06/08 us Riky Mejía MD CT ORDERABLES Final Resul t * (ABNORMAL) POC GLUCOSE (05/06/2008 5:38 PM CDT) GLUCOSE POC 126(H) 60 - 100 mg/dL [facility] Venous blood specimen (specimen) 05/06/2008 5:38 PM CDT 05/07/2008 3:27 AM CDT Riky Mejía MD POINT OF CARE TESTING Final Result Performing Organization Address [facility] Phone Number INTERFACE SYSTEM Refer to clinic/hospital department [facility] CLIA# [id number] [address] [place] [address] * (ABNORMAL) POC GLUCOSE (05/06/2008 12:55 PM CDT) GLUCOSE POC 120(H) 60 - 100 mg/dL [facility] Venous blood specimen (specimen) 05/06/2008 12:55 PM CDT 05/07/2008 3:27 AM CDT Riky Mejía MD POINT OF CARE TESTING Final Result Performing Organization Address [facility] Phone Number INTERFACE SYSTEM Refer to clinic/hospital department [facility] CLIA# [id number] [address] [place] [address] * (ABNORMAL) POC GLUCOSE (05/06/2008 8:03 AM CDT) GLUCOSE POC 134(H) 60 - 100 mg/dL [facility] Venous blood specimen (specimen) 05/06/2008 8:03 AM CDT 05/07/2008 3:24 AM CDT Riky Mejía MD POINT OF CARE TESTING Final Result Performing Organization Address [facility] Phone Number INTERFACE SYSTEM Refer to clinic/[facility] CLIA# [id number] [address] [place] [address] * (ABNORMAL) BASIC METABOLIC PANEL (05/06/2008 5:34 AM CDT) CREATININE 0.5(L) 0.7 - 1.2 mg/dL [facility] CALCIUM 8.1(L) 8.4 - 10.5 mg/dL [facility] GLUCOSE 111(H) 70 - 110 mg/dL [facility] CHLORIDE 107 95 - 110 mEq/L [facility] ANION GAP 11 9 - 20 mEq/L [facility] SODIUM 137 136 - 145 mEq/L [facility] BUN 10 7 - 17 mg/dL [facility] CO2 23 22 - 32 mmol/l [facility] POTASSIUM 3.7 3.5 - 5.0 mEq/L [facility] OSMOLALITY, CALCULATED 281 275 - 295 mOsm/Kg [facility] Blood specimen (specimen) 05/06/2008 5:34 AM CDT 05/06/2008 5:34 AM CDT Riky Mejía MD CHEMISTRY ORDERABLES Final Result Performing Organization Address City/State/[facility] Co de Phone Number INTERFACE SYSTEM Refer to clinic/hospital department [facility] CLIA# [id number] [address] [place] [address] * (ABNORMAL) CBC WITH DIFFERENTIAL (05/06/2008 5:34 AM CDT) LYMPHOCYTES 11.5(L) 24.0 - 44.0 % [facility] MCHC 30.9 30.0 - 35.0 g/dL [facility] LYMPHOCYTE ABSOLUTE 0.9(L) 1.2 - 4.0 K/ul [facility] MCV 96.3 84.0 - 103.0 Fl [facility] MPV 11.1 8.9 - 12.8 Fl [facility] BASOPHILS ABSOLUTE 0.0 0.0 - 0.2 K/ul [facility] BASOPHILS 0.4 0.0 - 1.0 % [facility] HEMOGLOBIN 8.0(L) 12.0 - 16.0 g/dL [facility] RDW 18.5(H) 11.0 - 14.5 % [facility] MONOCYTE ABSOLUTE 0.7(H) 0.1 - 0.6 K/ul [facility] MONOCYTES 9.2 2.0 - 10.0 % [facility] WBC 7.7 4.5 - 11.0 K/ul [facility] MCH 29.7 27.0 - 34.0 pg [facility] NEUTROPHIL ABSOLUTE 5.8 2.0 - 8.0 K/ul [facility] NEUTROPHILS 75.3(H) 42.2 - 75.2 % [facility] HEMATOCRIT 25.9(L) 36.0 - 46.0 % [facility] EOSINOPHILS 3.6 0.0 - 7.0 % [facility] PLATELETS 203 140 - 440 K/ul [facility] PERIPHERAL BLOOD SMEAR REVIEW Automated Diff [facility] EOSINOPHIL ABSOLUTE 0.3 0.0 - 0.7 K/ul [facility] RBC 2.69(L) 4.20 - 5.40 Mil/ul [facility] Blood specimen (specimen) 05/06/2008 5:34 AM CDT 05/06/2008 5:34 AM CDT us Riky Mejía MD HEMATOLOGY ORDERABLES Final Result Performing Organization Address City/[facility] Co de Phone Number INTERFACE SYSTEM Refer to clinic/hospital department [facility] CLIA# [id number] [address] [place] [address] * (ABNORMAL) POC GLUCOSE (05/05/2008 8:26 PM CDT) [facility] GLUCOSE POC 157(H) 60 - 100 mg/dL [facility] Venous blood specimen (specimen) 05/05/2008 8:26 PM CDT 05/06/2008 3:31 AM CDT us Riky Mejía MD POINT OF CARE TESTING Final Result Performing Organization Address City/[facility]/ZIP Co de Phone Number INTERFACE SYSTEM Refer to clinic/hospital department [facility] CLIA# [id number] [address] [place] [address] * (ABNORMAL) POC GLUCOSE (05/05/2008 4:57 PM CDT) GLUCOSE POC 124(H) 60 - 100 mg/dL [facility] Venous blood specimen (specimen) 05/05/2008 4:57 PM CDT 05/06/2008 3:31 AM CDT Riky Mejía MD POINT OF CARE TESTING Final Result Performing Organization Address [facility] de Phone Number INTERFACE SYSTEM Refer to clinic/hospital department [facility] CLIA# [id number] [address] [place] [address] * (ABNORMAL) POC GLUCOSE (05/05/2008 11:30 AM CDT) GLUCOSE POC 127(H) 60 - 100 mg/dL [facility] Venous blood specimen (specimen) 05/05/2008 11:30 AM CDT 05/06/2008 3:31 AM CDT Riky Mejía MD POINT OF CARE TESTING Final Result Performing Organization Address [facility] de Phone Number INTERFACE SYSTEM Refer to clinic/hospital department [facility] CLIA# [id number] [address] [place] [address] * (ABNORMAL) POC GLUCOSE (05/05/2008 8:05 AM CDT) GLUCOSE POC 137(H) 60 - 100 mg/dL [facility] Venous blood specimen (specimen) 05/05/2008 8:05 AM CDT 05/06/2008 3:31 AM CDT Riky Mejía MD POINT OF CARE TESTING Final Result Performing Organization Address City/[facility] Co de Phone Number INTERFACE SYSTEM Refer to clinic/hospital department [facility] CLIA# [id number] [address] [place] [address] * (ABNORMAL) POC GLUCOSE (05/04/2008 9:56 PM CDT) GLUCOSE POC 115(H) 60 - 100 mg/dL [facility] Venous blood specimen (specimen) 05/04/2008 9:56 PM CDT 05/05/2008 2:27 AM CDT Riky Mejía MD POINT OF CARE TESTING Final Result Performing Organization Address [facility] de Phone Number INTERFACE SYSTEM Refer to clinic/hospital department [facility] CLIA# [id number] [address] [place] [address] * (ABNORMAL) POC GLUCOSE (05/04/2008 5:34 PM CDT) GLUCOSE POC 120(H) 60 - 100 mg/dL [facility] Venous blood specimen (specimen) 05/04/2008 5:34 PM CDT 05/05/2008 5:02 AM CDT Riky Mejía MD POINT OF CARE TESTING Final Result Performing Organization Address [facility] de Phone Number INTERFACE SYSTEM Refer to clinic/hospital department [facility] CLIA# [id number] [address] [place] [address] * (ABNORMAL) POC GLUCOSE (05/04/2008 11:15 AM CDT) GLUCOSE POC 133(H) 60 - 100 mg/dL [facility] Venous blood specimen (specimen) 05/04/2008 11:15 AM CDT 05/05/2008 2:27 AM CDT Riky Mejía MD POINT OF CARE TESTING Final Result Performing Organization Address City/[facility] Co de Phone Number INTERFACE SYSTEM Refer to clinic/hospital department [facility] CLIA# [id number] [address] [place] [address] * URINE CULTURE (05/04/2008 9:06 AM CDT) FINAL REPORT No growth INTERFA CE SYSTEM 05/04/2008 9:06 AM CDT 05/04/2008 9:06 AM CDT Riky Mejía MD MICROBIOLOGY - GENERAL ORDJos ATKINSON Final Result Performing Organization Address [facility] Phone Number INTERFACE SYSTEM Refer to clinic/hospital department * (ABNORMAL) POC GLUCOSE (05/04/2008 7:37 AM CDT) GLUCOSE POC 139(H) 60 - 100 mg/dL [facility] Venous blood specimen (specimen) 05/04/2008 7:37 AM CDT 05/05/2008 2:27 AM CDT us Riky Mejía MD POINT OF CARE TESTING Final Result Performing Organization Address [facility] Phone Number INTERFACE SYSTEM Refer to clinic/hospital department [facility] CLIA# [id number] [address] [place] [address] * (ABNORMAL) URINALYSIS MICROSCOPY ONLY (05/04/2008 2:12 AM CDT) HYALINE CAST None Seen 0 - 2 [facility] WBC URINE 0-2 0 - 2 [facility] BACTERIA UA Small(A) None Seen [facility] RBC UA 6-10(A) 0 - 2 [facility] Urine specimen (specimen) 05/04/2008 2:12 AM CDT 05/04/2008 2:12 AM CDT Narrative INTERFACE SYSTEM - 05/04/2008 2:30 AM CDT Microscopic ordered by policy Riky Mejía MD URINE ORDERABLES Final Resu lt Performing Organization Address [facility] de Phone Number INTERFACE SYSTEM Refer to clinic/hospital department [facility] CLIA# [id number] [address] [place] [address] * ICTOTEST (05/04/2008 2:12 AM CDT) ICTO Negative Negative [facility] Urine specimen (specimen) 05/04/2008 2:12 AM CDT 05/04/2008 2:12 AM CDT Narrative INTERFACE SYSTEM - 05/04/2008 2:30 AM CDT Bili verified by ictotest us Riky Mejía MD URINE ORDERABLES Final Resu lt Performing Organization Address [facility] de Phone Number INTERFACE SYSTEM Refer to clinic/hospital department [facility] CLIA# [id number] [address] [place] [address] * (ABNORMAL) URINALYSIS (05/04/2008 2:12 AM CDT) LEUKOCYTE ESTERASE UA NEGATIVE NEGATIVE [facility] KETONES UA Trace(A) NEGATIVE [facility] COLOR UA Yellow Straw [facility] PROTEIN UA 100 mg/dl(A) NEGATIVE [facility] SPECIFIC GRAVITY UA 1.010 <=1.005 [facility] NITRITE UA NEGATIVE NEGATIVE [facility] UROBILINOGEN UA 0.2 0.2 [facility] CLARITY UA Clear Clear [facility] GLUCOSE UA NEGATIVE NEGATIVE [facility] MICRO EXAM Yes(A) No [facility] PH UA 6.5 5.0 - 9.0 [facility] BLOOD UA MODERATE(A) NEGATIVE [facility] Urine specimen (specimen) 05/04/2008 2:12 AM CDT 05/04/2008 2:12 AM CDT us Riky Mejía MD URINE ORDERABLES Final Resu lt Performing Organization Address [facility] de Phone Number INTERFACE SYSTEM Refer to clinic/hospital department [facility] CLIA# [id number] [address] [place] [address] * BLOOD CULTURE (05/04/2008 2:02 AM CDT) FINAL REPORT No growth INTERFA CE SYSTEM Blood specimen (specimen) 05/04/2008 2:02 AM CDT 05/04/2008 3:36 AM CDT us Riky Mejía MD [facility] Final Result Performing Organization Address [facility] de Phone Number INTERFACE SYSTEM Refer to clinic/hospital department * (ABNORMAL) BASIC METABOLIC PANEL (05/04/2008 1:55 AM CDT) OSMOLALITY, CALCULATED 282 275 - 295 mOsm/Kg [facility] POTASSIUM 4.3 3.5 - 5.0 mEq/L [facility] CREATININE 0.6(L) 0.7 - 1.2 mg/dL [facility] CALCIUM 9.0 8.4 - 10.5 mg/dL [facility] GLUCOSE 120(H) 70 - 110 mg/dL [facility] CHLORIDE 108 95 - 110 mEq/L [facility] SODIUM 135(L) 136 - 145 mEq/L [facility] ANION GAP 10 9 - 20 mEq/L [facility] BUN 17 7 - 17 mg/dL [facility] CO2 21(L) 22 - 32 mmol/l [facility] Blood specimen (specimen) 05/04/2008 1:55 AM CDT 05/04/2008 2:49 AM CDT us Riky Mejía MD CHEMISTRY ORDERABLES Final Result Performing Organization Address City/[facility] Co de Phone Number INTERFACE SYSTEM Refer to clinic/hospital department [facility] CLIA# [id number] [address] [place] [address] * (ABNORMAL) CBC WITH DIFFERENTIAL (05/04/2008 1:55 AM CDT) PERIPHERAL BLOOD SMEAR REVIEW Automated Diff [facility] EOSINOPHIL ABSOLUTE 0.2 0.0 - 0.7 K/ul [facility] RBC 2.86(L) 4.20 - 5.40 Mil/ul [facility] MCHC 31.6 30.0 - 35.0 g/dL [facility] LYMPHOCYTES 11.5(L) 24.0 - 44.0 % [facility] LYMPHOCYTE ABSOLUTE 1.0(L) 1.2 - 4.0 K/ul [facility] MCV 96.2 84.0 - 103.0 Fl [facility] MPV 11.1 8.9 - 12.8 Fl [facility] BASOPHILS ABSOLUTE 0.0 0.0 - 0.2 K/ul [facility] BASOPHILS 0.4 0.0 - 1.0 % [facility] HEMOGLOBIN 8.7(L) 12.0 - 16.0 g/dL [facility] RDW 18.6(H) 11.0 - 14.5 % [facility] MONOCYTE ABSOLUTE 1.0(H) 0.1 - 0.6 K/ul [facility] MONOCYTES 10.9(H) 2.0 - 10.0 % [facility] WBC 8.9 4.5 - 11.0 K/ul [facility] NEUTROPHILS 75.1 42.2 - 75.2 % [facility] MCH 30.4 27.0 - 34.0 pg [facility] NEUTROPHIL ABSOLUTE 6.7 2.0 - 8.0 K/ul [facility] HEMATOCRIT 27.5(L) 36.0 - 46.0 % [facility] PLATELETS 180 140 - 440 K/ul [facility] EOSINOPHILS 2.1 0.0 - 7.0 % [facility] Blood specimen (specimen) 05/04/2008 1:55 AM CDT 05/04/2008 2:25 AM CDT us Riky Mejía MD HEMATOLOGY ORDERABLES Final Result Performing Organization Address City/[facility] de Phone Number INTERFACE SYSTEM Refer to clinic/hospital department [facility] CLIA# [id number] [address] [place] [address] * BLOOD CULTURE (05/04/2008 1:55 AM CDT) FINAL REPORT No growth INTERFA CE SYSTEM REPORT/SPECIM EN COMMENT Specimen processed with suboptimal blood volume. Recommended adult blood volume is 8-10 mL per bottle. INTERFACE SYSTEM Blood specimen (specimen) 05/04/2008 1:55 AM CDT 05/04/2008 3:36 AM CDT us Riky Mejía MD MICROBIOLOGY - GENERAL ORDJos ATKINSON Final Result Performing Organization Address [facility] de Phone Number INTERFACE SYSTEM Refer to clinic/hospital department * (ABNORMAL) POC GLUCOSE (05/03/2008 9:24 PM CDT) GLUCOSE POC 137(H) 60 - 100 mg/dL [facility] Venous blood specimen (specimen) 05/03/2008 9:24 PM CDT 05/04/2008 4:27 AM CDT us Riky Mejía MD POINT OF CARE TESTING Final Result Performing Organization Address [facility] de Phone Number INTERFACE SYSTEM Refer to clinic/hospital department [facility] CLIA# [id number] [address] [place] [address] * (ABNORMAL) POC GLUCOSE (05/03/2008 4:35 PM CDT) GLUCOSE POC 128(H) 60 - 100 mg/dL [facility] Venous blood specimen (specimen) 05/03/2008 4:35 PM CDT 05/04/2008 4:27 AM CDT us Riky Mejía MD POINT OF CARE TESTING Final Result INTERFACE SYSTEM Refer to clinic/hospital department [facility] CLIA# [id number] [address] [place] [address] * CT ABDOMEN PELVIS W CONTRAST (05/03/2008 3:02 PM CDT) Anatomical Region Laterality Modality Abdomen Other 05/03/2008 3:02 PM CDT Narrative 05/04/2008 12:11 PM CDT Exam: CT Abdomen, Pelvis, w/contrast Date/Time of Exam: May 03, 2008 3:02:55 PM History: Please see order comments. Technique: 5 mm volumetric acquisition with 125 mL intravenous Optiray 240. Comparison: None. Findings: Consolidative atelectasis versus airspace disease of the right lower lobe is present. Calcified subcarinal and left infrahilar lymph nodes are present. Calcified granuloma of the left lung base is present. Near diffuse low attenuation of the enhanced liver relative to the spleen is identified. This CT finding is nondiagnostic of however most consistent with fatty infiltration of the liver. A fluid-fluid level within the gallbladder is identified. Differential diagnosis would include gallbladder sludge versus layering vicarious excretion of contrast medium. The spleen, adrenal glands, pancreas, and kidneys are unremarkable. An IVC filter is present with intraluminal filling defect within the IVC at the level of the IVC filter is noted. This may represent flow phenomenon or incomplete admixture of contrast. There is abnormal dilatation of the left gonadal vein with intraluminal filling defect consistent with thrombus within the left gonadal vein noted. A suprapubic catheter within a collapsed gallbladder is noted. The uterus is surgically absent. There is abnormal presacral induration/infiltration and thickening of the perirectal fascia noted. Patient is status post midline laparotomy incision with air deep within the laparotomy incision noted. Increase in attenuation or contrast within the laparotomy incision is present. There is mild induration/infiltration of the omental fat anteriorly noted. Surgical clips of the iliac fossa are noted. Rectal contrast is identified extending into the sigmoid colon. A region of possible extravasation of contrast medium into the right colon or fistulization into a contrast collection within the right lower quadrant is seen. This appears to communicate with the inferior aspect of the laparotomy incision. Colostomy of the anterior left abdominal wall is noted. The contrast collection within the anterior right pelvis measures approximately 4.7 cm (AP) x 3.6 cm (transverse). Multiple contrast-filled loops of adjacent bowel are noted without definite communication with these bowel loops identified. No free air is identified. IMPRESSION 1. Status post colostomy of the anterior left abdomen with probable extravasation of rectal contrast from a Edelmira's pouch into an ill-defined collection of contrast within the anterior right pelvis which appears to communicate with the midline laparotomy incision with contrast medium within the laparotomy incision noted. 2. 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 3. Abnormal induration/infiltration of the presacral fat and abnormal perirectal fascial thickening. Findings likely post therapeutic in etiology. 4. Status post suprapubic catheter placement within a collapsed bladder. 5. Consolidative atelectasis versus airspace disease of the posterobasal segment of the right lower lobe. 6. The above findings were discussed with Dr. Riky Mejía at time of dictation. 7. Intraluminal filling defect within the IVC superior to the level of the IVC filter. This could be artifactual from inflow and incomplete admixture. - Dictated By: ??Erica Mercedes M.D. Electronically Signed By: ??Erica Mercedes M.D. Date Signed: 05/04/08 Procedure Note Cordelia Mercedes - 05/04/2008 Exam: CT Abdomen, Pelvis, w/contrast Date/Time of Exam: May 03, 2008 3:02:55 PM History: Please see order comments. Technique: 5 mm volumetric acquisition with 125 mL intravenous [id number]. Comparison: None. Findings: Consolidative atelectasis versus airspace disease of the rightlower lobe is present. Calcified subcarinal and left infrahilar lymph nodes are present. Calcifiedgranuloma of the left lung base is present. Near diffuse low attenuation of the enhanced liver relative tothe spleen is identified. This CT finding is nondiagnostic of however most consistent with fattyinfiltration of the liver. A fluid-fluid level within the gallbladder is identified. Differential diagnosis wouldinclude gallbladder sludge versus layering vicarious excretion of contrast medium. The spleen,adrenal glands, pancreas, and kidneys are unremarkable. An IVC filter is present with intraluminal fillingdefect within the IVC at the level of the IVC filter is noted. This may represent flow phenomenon orincomplete admixture of contrast. There is abnormal dilatation of the left gonadal vein with intraluminal fillingdefect consistent with thrombus within the left gonadal vein noted. A suprapubic catheter withina collapsed gallbladder is noted. The uterus is surgically absent. There is abnormal presacralinduration/infiltration and thickening of the perirectal fascia noted. Patient is status post midlinelaparotomy incision with air deep within the laparotomy incision noted. Increase in attenuation orcontrast within the laparotomy incision is present. There is mild induration/infiltration of the omentalfat anteriorly noted. Surgical clips of the iliac fossa are noted. Rectal contrast is identifiedextending into the sigmoid colon. A region of possible extravasation of contrast medium into the right colonor fistulization into a contrast collection within the right lower quadrant is seen. This appears tocommunicate with the inferior aspect of the laparotomy incision. Colostomy of the anterior left abdominal ben noted. The contrast collection within the anterior right pelvis measures approximately 4.7 cm(AP) x 3.6 cm (transverse). Multiple contrast-filled loops of adjacent bowel are noted withoutdefinite communication with these bowel loops identified. No free air is identified. IMPRESSION 1. Status post colostomy of the anterior left abdomen with probableextravasation of rectal contrast from a Edelmira's pouch into an ill-defined collection of contrast within theanterior right pelvis which appears to communicate with the midline laparotomy incision with contrastmedium within the laparotomy incision noted. 2. 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 3. Abnormal induration/infiltration of the presacral fat and abnormalperirectal fascial thickening. Findings likely post therapeutic in etiology. 4. Status post suprapubic catheter placement within a collapsed bladder. 5. Consolidative atelectasis versus airspace disease of the posterobasalsegment of the right lower lobe. 6. The above findings were discussed with Dr. Riky Mejía at time ofdictation. 7. Intraluminal filling defect within the IVC superior to the level of theIVC filter. This could be artifactual from inflow and incomplete admixture. - Dictated By: Erica Mercedes M.D. Electronically Signed By: Erica Mercedes M.D. Date Signed: 05/04/08 Riky Mejía MD CT ORDERABLES Final Resul t * XR CHEST PA OR AP (05/03/2008 9:59 AM CDT) Anatomical Region Laterality Modality Chest Other 05/03/2008 9:59 AM CDT Narrative 05/05/2008 9:11 AM CDT Comparison 04/19/2008. Removal of the endotracheal tube, right PICC line and left subclavian central line. Insertion of a left PICC line which terminates at the atriocaval junction. No pneumothorax. Heart size is normal. Few calcified granulomata. Slight increase in the mild right perihilar atelectasis and continued mild elevation of the right diaphragm. - Dictated By: ??Kelly Ramos M.D. Electronically Signed By: ??Kelly Ramos M.D. Date Signed: 05/05/08 [facility] Procedure Note Eris Ramos - 05/05/2008 Comparison 04/19/2008. Removal of the endotracheal tube, right PICC line and left subclaviancentral line. Insertion of a left PICC line which terminates at the atriocaval junction. No pneumothorax.Heart size is normal. Few calcified granulomata. Slight increase in the mild right perihilaratelectasis and continued mild elevation of the right diaphragm. - Dictated By: Kelly Ramos M.D. Electronically Signed By: Kelly Ramos M.D. Date Signed: 05/05/08 YAMILET Riky Mejía MD DIAGNOSTIC IMAGING ORDERABL ES Final Result * (ABNORMAL) PT AND APTT (05/03/2008 9:00 AM CDT) INR 1.3 [facility] Comment: Expected Values for INR: DVT/PE ?Goal INR 2.5; range 2.0 - 3.0 Valve Replacement ? Tissue ? Goal INR 2.5; range 2.0 - 3.0 ? Mechanical ?Goal INR 3.0; range 2.5 - 3.5 POST-SD ?Goal INR 2.5; range 2.0 - 3.0 ??or Goal 3.0; range 2.5 - 3.5 Atrial Fibrillation ?Goal INR 2.5; range 2.0 - 3.0 Ischemic Stroke ?Goal INR 2.5; range 2.0 - 3.0 For additional information see Guidelines for Anticoagulation available from the pharmacy [facility]. ??[phone] PTT 38.5(H) 22.5 - 36.5 Secs [facility] Comment: Therapeutic Range: ?? Hi-level PE/DVT heparin protocol 80.1 -95.0 ??sec ? Lo-level PE/DVT ??heparin protocol ??67.1 - ??80.0 sec ?? Cardiac Heparin Protocol 67.1 - 85.0 sec ?? Neuro Heparin Protocol 67.1 - 80.0 sec As of 09/25/2007 note change in APTT Normal Range. PROTIME 18.0(H) 12.8 - 15.8 Secs [facility] Comment:As of 2007 not e change in normal range. Blood specimen (specimen) 05/03/2008 9:00 AM CDT 05/03/2008 9:10 AM CDT Narrative INTERFACE SYSTEM - 05/03/2008 9:23 AM CDT use blood in the lab us Riky Mejía MD HEMATOLOGY ORDERABLES Edite d INTERFACE SYSTEM Refer to clinic/hospital department [facility] CLIA# [id number] [address] [place] [address] * (ABNORMAL) BASIC METABOLIC PANEL (05/03/2008 5:39 AM CDT) GLUCOSE 122(H) 70 - 110 mg/dL [facility] CHLORIDE 106 95 - 110 mEq/L [facility] SODIUM 135(L) 136 - 145 mEq/L [facility] ANION GAP 14 9 - 20 mEq/L [facility] BUN 20(H) 7 - 17 mg/dL [facility] CO2 20(L) 22 - 32 mmol/l [facility] OSMOLALITY, CALCULATED 284 275 - 295 mOsm/Kg [facility] POTASSIUM 5.0 3.5 - 5.0 mEq/L [facility] CREATININE 0.6(L) 0.7 - 1.2 mg/dL [facility] CALCIUM 9.1 8.4 - 10.5 mg/dL [facility] Blood specimen (specimen) 05/03/2008 5:39 AM CDT 05/03/2008 6:15 AM CDT Riky Mejía MD CHEMISTRY ORDERABLES Final Result INTERFACE SYSTEM Refer to clinic/hospital department [facility] CLIA# [id number] [address] [place] [address] * (ABNORMAL) CBC WITH DIFFERENTIAL (05/03/2008 5:39 AM CDT) HEMATOCRIT 28.4(L) 36.0 - 46.0 % [facility] LYMPHOCYTE ABSOLUTE 0.6(L) 1.2 - 4.0 K/ul [facility] LYMPHOCYTES 5.9(L) 24.0 - 44.0 % [facility] MCHC 31.3 30.0 - 35.0 g/dL [facility] BASOPHILS 0.2 0.0 - 1.0 % [facility] MPV 10.9 8.9 - 12.8 Fl [facility] WBC 10.2 4.5 - 11.0 K/ul [facility] BASOPHILS ABSOLUTE 0.0 0.0 - 0.2 K/ul [facility] PERIPHERAL BLOOD SMEAR REVIEW Automated Diff [facility] MCV 96.3 84.0 - 103.0 Fl [facility] MONOCYTES 9.9 2.0 - 10.0 % [facility] RDW 18.3(H) 11.0 - 14.5 % [facility] MONOCYTE ABSOLUTE 1.0(H) 0.1 - 0.6 K/ul [facility] RBC 2.95(L) 4.20 - 5.40 Mil/ul [facility] HEMOGLOBIN 8.9(L) 12.0 - 16.0 g/dL [facility] NEUTROPHILS 82.5(H) 42.2 - 75.2 % [facility] NEUTROPHIL ABSOLUTE 8.5(H) 2.0 - 8.0 K/ul [facility] MCH 30.2 27.0 - 34.0 pg [facility] PLATELETS 163 140 - 440 K/ul [facility] EOSINOPHIL ABSOLUTE 0.2 0.0 - 0.7 K/ul [facility] EOSINOPHILS 1.5 0.0 - 7.0 % [facility] Blood specimen (specimen) 05/03/2008 5:39 AM CDT 05/03/2008 6:15 AM CDT Riky Mejía MD HEMATOLOGY ORDERABLES Final Result Performing Organization Address City/[facility] Phone Number INTERFACE SYSTEM Refer to clinic/hospital department [facility] CLIA# [id number] [address] [place] [address] * URINE CULTURE (05/02/2008 10:05 PM CDT) FINAL REPORT No growth INTERFA CE SYSTEM 05/02/2008 10:0 5 PM CDT 05/02/2008 10:05 PM CDT Riky Mejía MD MICROBIOLOGY - GENERAL ORDE RABLES Final Result Performing Organization Address City/[facility] de Phone Number INTERFACE SYSTEM Refer to clinic/hospital department * (ABNORMAL) URINALYSIS MICROSCOPY ONLY (05/02/2008 9:19 PM CDT) BACTERIA UA Few(A) None Seen [facility] WBC URINE 3-5(A) 0 - 2 [facility] RBC UA 0-2 0 - 2 [facility] HYALINE CAST 0-2 0 - 2 [facility] Urine specimen (specimen) 05/02/2008 9:19 PM CDT 05/02/2008 9:19 PM CDT Narrative INTERFACE SYSTEM - 05/02/2008 9:43 PM CDT Microscopic ordered by policy us Riky Mejía MD URINE ORDERABLES Final Resu lt Performing Organization Address [facility] Phone Number INTERFACE SYSTEM Refer to clinic/hospital department [facility] CLIA# [id number] [address] [place] [address] * (ABNORMAL) ICTOTEST (05/02/2008 9:19 PM CDT) ICTO Positive(A) Negative [facility] Urine specimen (specimen) 05/02/2008 9:19 PM CDT 05/02/2008 9:19 PM CDT Narrative INTERFACE SYSTEM - 05/02/2008 9:43 PM CDT Bili verified by ictotest us Riky Mejía MD URINE ORDERABLES Final Resu lt Performing Organization Address [facility] Phone Number INTERFACE SYSTEM Refer to clinic/hospital department [facility] CLIA# [id number] [facility] [place] [address] * (ABNORMAL) URINALYSIS (05/02/2008 9:19 PM CDT) CLARITY UA Clear Clear [facility] MICRO EXAM Yes(A) No [facility] GLUCOSE UA NEGATIVE NEGATIVE [facility] PH UA 5.5 5.0 - 9.0 [facility] BLOOD UA NEGATIVE NEGATIVE [facility] LEUKOCYTE ESTERASE UA NEGATIVE NEGATIVE [facility] KETONES UA Trace(A) NEGATIVE [facility] COLOR UA Yellow Straw [facility] PROTEIN UA 100 mg/dl(A) NEGATIVE [facility] SPECIFIC GRAVITY UA >=1.030(A) <=1.005 [facility] NITRITE UA POSITIVE(A) NEGATIVE [facility] UROBILINOGEN UA 0.2 0.2 [facility] Urine specimen (specimen) 05/02/2008 9:19 PM CDT 05/02/2008 9:19 PM CDT us Riky Mejía MD URINE ORDERABLES Final Resu lt INTERFACE SYSTEM Refer to clinic/hospital department [facility] CLIA# [id number] [address] [place] [address] * (ABNORMAL) BASIC METABOLIC PANEL (05/02/2008 6:50 PM CDT) BUN 22(H) 7 - 17 mg/dL [facility] CO2 23 22 - 32 mmol/l [facility] POTASSIUM 5.3(H) 3.5 - 5.0 mEq/L [facility] Comment: Specimen slightly hemolyzed OSMOLALITY, CALCULATED 278 275 - 295 mOsm/Kg [facility] CREATININE 0.7 0.7 - 1.2 mg/dL [facility] CALCIUM 9.2 8.4 - 10.5 mg/dL [facility] GLUCOSE 124(H) 70 - 110 mg/dL [facility] CHLORIDE 101 95 - 110 mEq/L [facility] ANION GAP 12 9 - 20 mEq/L [facility] SODIUM 131(L) 136 - 145 mEq/L [facility] Blood specimen (specimen) 05/02/2008 6:50 PM CDT 05/02/2008 7:01 PM CDT Riky Mejía MD CHEMISTRY ORDERABLES Final Result Performing Organization Address [facility] de Phone Number INTERFACE SYSTEM Refer to clinic/hospital department [facility] CLIA# [id number] [facility] [place] [address] * (ABNORMAL) BASIC METABOLIC PANEL (05/02/2008 8:38 AM CDT) [facility] OSMOLALITY, CALCULATED 280 275 - 295 mOsm/Kg [facility] CREATININE 0.8 0.7 - 1.2 mg/dL [facility] CALCIUM 9.5 8.4 - 10.5 mg/dL [facility] GLUCOSE 123(H) 70 - 110 mg/dL [facility] CHLORIDE 100 95 - 110 mEq/L [facility] ANION GAP 13 9 - 20 mEq/L [facility] SODIUM 131(L) 136 - 145 mEq/L [facility] BUN 26(H) 7 - 17 mg/dL [facility] CO2 24 22 - 32 mmol/l [facility] POTASSIUM 5.5(H) 3.5 - 5.0 mEq/L [facility] Blood specimen (specimen) 05/02/2008 8:38 AM CDT 05/02/2008 8:43 AM CDT us Riky Mejía MD CHEMISTRY ORDERABLES Final Result Performing Organization Address [facility] de Phone Number INTERFACE SYSTEM Refer to clinic/hospital department [facility] CLIA# [id number] [address] [place] [address] * (ABNORMAL) CBC WITH DIFFERENTIAL (05/02/2008 6:55 AM CDT) Pathologist [facility] LYMPHOCYTE ABSOLUTE 1.4 1.2 - 4.0 K/ul [facility] MCV 95.8 84.0 - 103.0 Fl [facility] MPV 11.2 8.9 - 12.8 Fl [facility] BASOPHILS ABSOLUTE 0.1 0.0 - 0.2 K/ul [facility] BASOPHILS 0.4 0.0 - 1.0 % [facility] HEMOGLOBIN 10.8(L) 12.0 - 16.0 g/dL [facility] RDW 18.3(H) 11.0 - 14.5 % [facility] MONOCYTE ABSOLUTE 1.5(H) 0.1 - 0.6 K/ul [facility] MONOCYTES 11.3(H) 2.0 - 10.0 % [facility] WBC 13.0(H) 4.5 - 11.0 K/ul [facility] MCH 30.3 27.0 - 34.0 pg [facility] NEUTROPHIL ABSOLUTE 10.0(H) 2.0 - 8.0 K/ul [facility] NEUTROPHILS 76.9(H) 42.2 - 75.2 % [facility] HEMATOCRIT 34.2(L) 36.0 - 46.0 % [facility] EOSINOPHILS 0.8 0.0 - 7.0 % [facility] PLATELETS 164 140 - 440 K/ul [facility] PERIPHERAL BLOOD SMEAR REVIEW Automated Diff [facility] EOSINOPHIL ABSOLUTE 0.1 0.0 - 0.7 K/ul [facility] RBC 3.57(L) 4.20 - 5.40 Mil/ul [facility] LYMPHOCYTES 10.6(L) 24.0 - 44.0 % [facility] MCHC 31.6 30.0 - 35.0 g/dL [facility] Blood specimen (specimen) 05/02/2008 6:55 AM CDT 05/02/2008 7:02 AM CDT us Riky Mejía MD HEMATOLOGY ORDERABLES Final Result INTERFACE SYSTEM Refer to clinic/hospital department [facility] CLIA# [id number] [address] [place] [address] documented in this encounter Visit Diagnoses Diagnosis Pressure ulcer, buttock(707.05) Pressure ulcer, buttock Pressure ulcer, lower back(707.03) Pressure ulcer, lower back Paraplegia ([facility]/HCC) Paraplegia Pulmonary collapse Body mass index 40 and over, adult Body Mass Index 40 and over, adult Morbid obesity (CMS/HCC) Morbid obesity Colostomy status ([facility]/HCC) Colostomy status Personal history of venous thrombosis and embolism Nausea alone Esophageal reflux Fever, unspecified Debility, unspecified Pressure ulcer, stage II(707.22) (CMS/HCC) Pressure ulcer, stage II Perforation of intestine ([facility]/HCC) Perforation of intestine Unspecified procedure as the cause of abnormal reaction of patient, or of later complication, without mention of misadventure at time of procedure Peritoneal abscess ([facility]/HCC) Peritoneal abscess Unspecified protein-calorie malnutrition Pressure ulcer, stage IV(707.24) ([facility]/HCC) Pressure ulcer, stage IV Pressure ulcer, upper back(707.02) Pressure ulcer, upper back Pressure ulcer, stage III(707.23) ([facility]/HCC) Pressure ulcer, stage III Removal of other organ (partial) (total) causing abnormal patient reaction, or later complication, without mention of misadventure at time of operation documented in this encounter Additional Health Concerns Infection Onset Date Last Indicated Resolved Time MRSA Comment:Kapil 10/26/15 10/27/2015 10/27/2015 documented as of this encounter Care Teams Pattern Duplicator Relationship Specialty Start Date End Date Jose Bowers MD [address] [place] [id number] PCP - General 12/31/05 documented as of this encounter
--- OUTSIDE RECORDS SUMMARY | 2024-08-18 18:46 | XMS_ITS | Encounter Summary ---
Author Organization [facility] Address [address] [place] [address] Care Team Providers Care Tin Container Straightener Name Role Phone Jose Bowers MD Primary Care Provider Unavailab le Encounter Details Date Type Department Care Team (Late st Contact Info) Description 08/30/2006 Outpatient Historical [facility]- [place] [id number] [place] [id number] Jose Bowers MD [address] [place] [address] Pain in Joint, Pelvic Region and Thigh (Primary Dx); Pain in Limb; Paraplegia (CMS/HCC) Social History Tobacco Use Types Packs/Day Years Used Date Smoking Tobacco: Never Assessed Comments Unknown Sex and Gender Information Value Date Recorded Sex Assigned at Not on file Legal Sex Female 6:28 AM [employer] Gender Identity Not on file Sexual Orientation Not on file documented as of this encounter Plan of Treatment Not on file documented as of this encounter Procedures Procedure Name Priority Date/Time Associated Diagnosis Comments XR PELVIS 3+ VW Routine 08/30/2006 12:33 PM [employer] documented in this encounter Results * XR PELVIS 3+ VW (08/30/2006 12:33 PM [employer] C[employer]ER) Anatomical Region Laterality Modality Pelvis Other 08/30/2006 12:3 3 PM [employer] CEMENTER Narrative 08/30/2006 12:33 PM [employer] CEMENTER PELVIS AND RIGHT HIP: TECHNIQUE: Two views of the right hip and three views of the pelvis were performed. FINDINGS: Pelvic ring is intact. Hip joint spaces are maintained normally. There is a slight diastasesof the symphysis pubis. SI joints are intact. IVC filter is in place. The right hip shows no fracture line or dislocation. Fat pad signs are normal. IMPRESSION: Intact bony structures. - Dictated By: ??Marcus Eng M.D. Electronically Signed By: ??Marcus Eng M.D. Date Signed: 09/02/06 Procedure Note 05/27/2009 PELVIS AND RIGHT HIP: TECHNIQUE: Two views of the right hip and three views of the pelvis were performed. FINDINGS: Pelvic ring is intact. Hip joint spaces are maintained normally. There esetlle slight diastasesof the symphysis pubis. SI joints are intact. IVC filter is in place. The right hip shows no fracture line or dislocation. Fat pad signs arenormal. IMPRESSION: Intact bony structures. - Dictated By: Marcus Eng M.D. Electronically Signed By: Marcus Eng M.D. Date Signed: 09/02/06 Jose Bowers MD DIAGNOSTIC IMAGING ORDERABLES Fi nal Result documented in this encounter Visit Diagnoses Diagnosis Pain in joint, pelvic region and thigh- Primary Pain in limb Pain in soft tissues of limb Paraplegia (CMS/HCC) Paraplegia documented in this encounter Additional Health Concerns Infection Onset Date Last Indicated Resolved Time MRSA Comment:Kapil 10/26/15 10/27/2015 10/27/2015 documented as of this encounter Care Teams Tin Container Straightener Relationship Specialty Start Date End Date Jose Bowers MD [address] [place] [address] PCP - General 12/31/05 documented as of this encounter
--- NOTE | 2024-08-18 18:55 | PC.NURSE ---
assumed care of pt at 1900
[2024-08-18] MEDS: pantoprazole DR 40 mg Tablet PO (21:08)
[2024-08-18] MEDS: baclofen 10 mg Tablet 20 MG PO (21:08)
[2024-08-18] MEDS: venlafaxine ER (24HR) 150 mg Capsule PO (21:09)
[2024-08-18] MEDS: trazodone 50 mg Tablet PO (21:09)
[2024-08-18] MEDS: docusate sodium 100 mg Capsule PO (21:09)
[2024-08-18] MEDS: gabapentin 300 mg Capsule 600 MG PO (21:09)
[2024-08-18] MEDS: potassium chloride ER 20 mEq Tablet PO (21:09)
[2024-08-18] MEDS: metoprolol succinate ER (24 HR) 25 mg Tablet 12.5 MG PO (21:09)
[2024-08-19] VITALS (26 sets, daily range): BP systolic 115–144; BP diastolic 52–77; PULSE 60–77; RESP 10–26; TEMP 36.7–37.1; O2SAT 86–97
--- NOTE | 2024-08-19 01:07 | PM.CONSULT ---
Providers/Reason For Consult Consulting Physician/Specialty*: MILTON Moser MD/cardiology Reason for Consult*: Patient with prolonged episode of chest pain. Recent abnormal Myocardial perfusion imaging Requesting Physician: Dr. Clements Attending Physician: Kaylie Clements MD Primary Care Provider: Jennifer Ordaz MD History of Present Illness History of Present Illness Jami Gandhi is a 54 year old female, is admitted to hospital through the emergency room where she presented with complaints of a prolonged episode of chest pain. She had a recent Myocardial perfusion imaging revealed extensive areas of reversible defects suggesting underlying coronary ischemia. Cardiology consult is requested for further cardiac evaluation recommendations. This is a 54-year-old white female, started having chest pain this morning, radiating to both sides of her neck and to the ears associate with some shortness of breath. The intensity was moderate. She apparently took several heartburn tablets which did not relieve the symptoms. Because of the persistence of the symptoms, she was brought to the emergency room. At the time of my examination, patient is pain-free. According the patient, she been having episodes of chest pain for the last 3 or 4 months. She may get these episodes once or twice a week, usually last for few minutes then goes away by itself or with some antacids. She had a Myocardial perfusion imaging on the of last month. The Perfusion scan revealed multiple areas of reversible and reversible defects. She has no previous history for any coronary disease, myocardial infarction or congestive heart failure. No history of hypertension, diabetes or dyslipidemia. No history for smoking abuse, alcohol or any other substance abuse. 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 She is on a motorized wheelchair. 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 History of chronic cystitis. Also has a history of DVT and pulmonary embolism and is on long-term oral anticoagulation. She is on a diuretic for chronic lower extremity edema. She has a colostomy bag. Suprapubic catheter for neurogenic bladder. Her father, brother and grandmother all had heart problems. Details are not available. Review of Systems Narrative: CONSTITUTIONAL: No fever or chills. EYES: No blurring of vision or other visual disturbances lately. ENT: No hoarseness of voice, auditory disturbances or sore throat. CARDIOVASCULAR: As mentioned above. RESPIRATORY: No significant cough. GASTROINTESTINAL: No hematemesis or melena. GENITOURINARY: As mentioned above INTEGUMENTARY: No skin rashes or history of skin cancer. NEURO: T4 paraplegia as mentioned above PSYCHIATRIC: No history of psychosis or major depression. HEMATOLOGIC: No bleeding disorders or significant anemia. ENDOCRINE: No history of polyuria or polydipsia. MUSCULOSKELETAL: As mentioned above ALLERGY/IMMUNOLOGY: As mentioned above. Medications/Allergies Home Medications ?Medication ?Instructions ?Recorded ?Confirmed ?Last Taken ?Type docusate sodium 100 mg capsule 100 mg PO BEDTIME 04/12/20 08/18/24 08/17/24 History furosemide 20 mg tablet 20 mg PO BID PRN edima 04/12/20 08/18/24 06/14/24 History gabapentin 600 mg tablet 600 mg PO BEDTIME 04/12/20 08/18/24 08/17/24 History omeprazole 40 mg capsule,delayed 40 mg PO BEDTIME 04/12/20 08/18/24 08/17/24 History release potassium chloride 10 mEq 20 meq PO BEDTIME 04/12/20 08/18/24 08/17/24 History capsule,extended release venlafaxine 150 mg 150 mg PO BEDTIME 04/12/20 08/18/24 08/17/24 History capsule,extended release 24 hr ascorbic acid (vitamin C) 1,000 mg 1,000 mg PO BID 10/27/20 08/18/24 08/17/24 History tablet baclofen 20 mg tablet 20 mg PO BEDTIME 02/26/23 08/18/24 08/17/24 History trazodone 50 mg tablet 25 mg PO BEDTIME 09/24/23 08/18/24 08/17/24 History cefdinir 300 mg capsule 300 mg PO DAILY 06/15/24 08/18/24 08/17/24 History warfarin 5 mg tablet See Rx Instructions .Route .COMPLEX 06/15/24 08/18/24 08/17/24 History albuterol sulfate 1.25 mg/3 mL 2.5 mg inhalation .Q4H PRN 08/18/24 08/18/24 Unknown History solution for nebulization shortness of breath or wheezing Allergies Allergy/AdvReac Type Severity Reaction Status Date / Time levofloxacin (From Levvaluescope) Allergy Unknown Unknown Verified 06/23/24 07:00 azithromycin Allergy Unknown Verified 06/23/24 07:00 Penicillins Allergy Unknown Verified 06/23/24 07:00 tramadol (From Ultram) Allergy Unknown Verified 06/23/24 07:00 vancomycin Allergy Unknown Verified 06/23/24 07:00 amoxicillin AdvReac Unknown ADR-Seizure Verified 06/23/24 07:00 Current Medications Generic Name Dose Route Start Last Admin Trade Name Freq PRN Reason Stop Dose Admin Ascorbic Acid 1,000 mg 08/18/24 18:00 08/18/24 18:28 Ascorbic Acid 500 Mg Tablet PO 1,000 mg BID CARLOS Administration Baclofen 20 mg 08/18/24 21:00 08/18/24 21:08 Baclofen 10 Mg Tablet PO 20 mg BEDTIME CARLOS Administration Docusate Sodium 100 mg 08/18/24 21:00 08/18/24 21:09 Docusate Sodium 100 Mg Capsule PO 100 mg BEDTIME CARLOS Administration Gabapentin 600 mg 08/18/24 21:00 08/18/24 21:09 Gabapentin 300 Mg Capsule PO 600 mg BEDTIME CARLOS Administration Metoprolol Succinate 12.5 mg 08/18/24 21:00 08/18/24 21:09 Metoprolol Succinate Er (24 Hr) 25 Mg Tablet PO 12.5 mg BEDTIME CARLOS Administration Pantoprazole Sodium 40 mg 08/18/24 21:00 08/18/24 21:[address] 40 Mg Tablet PO 40 mg BEDTIME CARLOS Administration Potassium Chloride 20 meq 08/18/24 21:00 08/18/24 21:09 Potassium Chloride Er 20 Meq Tablet PO 20 meq BEDTIME CARLOS Administration Trazodone HCl 50 mg 08/18/24 14:50 08/18/24 21:09 Trazodone 50 Mg Tablet PO 50 mg BEDTIME PRN Administration insomnia Venlafaxine HCl 150 mg 08/18/24 21:00 08/18/24 21:09 Venlafaxine Er (24hr) 150 Mg Capsule PO 150 mg BEDTIME CARLOS Administration PFSH Acute PFSH: Medical History History of angiography 2015 abdominal angiography and lower extremity angiography - normal abdominal aorta, pelvic vessels normal, all lower extremity vessels unremarkable, 3 vessel runoff below both knees History of cardiovascular stress test 07/2024 abnormalities on myocardial perfusion scanning History of sleep study 05/2017 - cpap auto-titrating 15-19 Wound of sacral region goes to wound care clinic Abscess of sacrum Parastomal hernia Ventral incisional hernia GERD (gastroesophageal reflux disease) Depression Fracture of fifth toe, right, closed History of sleep apnea sleep study in 2017 recommended auto-titrating cpap 15-[address] Chronic venous insufficiency of lower extremity PVD (peripheral vascular disease) History of DVT (deep vein thrombosis) (2004) and pulmonary embolism 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 Chronic osteomyelitis Neurogenic bladder Chronic cystitis Surgical History History of carpal tunnel release History of abdominal surgery (2007) excision of pelvic cysts complicated by bowel perforation, had multiple procedures including colostomy History of inferior vena caval filter placement (2004) still in place in 08/2024 History of incision and drainage (04/2019) sacral wound History of back surgery (2004) for spinal abscess x 2 History of hysterectomy (2003) S/P cholecystectomy S/P section Suprapubic catheter (~2004) following urology in [place] Family History Family/Other Diabetes Cancer CAD (coronary artery disease) Mother , at age 74 Sepsis Cancer melanoma Diabetes Father Heart disease Other Dementia Diabetes mellitus type 1 Hypertension Stroke Social History Smoking and tobacco/nicotine status: never used tobacco/nicotine Alcohol intake: never Substance/Drug Use: never Additional social history: daughter performs dressing changes twice per day, she and other family provide assistance as needed, wheelchair dependent, able to use transfer board Caregiver/support person: Yes Lives independently: Yes Marital status: Current occupational status: disabled Vitals/I&O/Wt Last Vital Signs Temp 98.5 F 08/19/24 00:00 Pulse 67 08/19/24 00:00 Resp 15 08/19/24 00:00 BP 125/64 08/19/24 00:00 Pulse Ox 95 08/19/24 00:00 O2 Del Method BiPAP 08/19/24 00:00 08/18/24 08/18/24 08/19/24 14:59 22:59 06:59 Intake Total 0 / 0 100 / 100 Output Total 0 / 0 Balance 0 / 0 100 / 100 Weight last 48 hrs Weight 280 lb 12.8 oz Weight 300 lb Physical Exam Narrative: GENERAL: The patient is alert and oriented times three. Not in any acute distress. Obese HEENT: No significant pallor, icterus or lymphadenopathy.Oral cavity: There are no mucous membrane lesions. NECK: Trachea appears to be central. No masses noted. No JVD or thyromegaly appreciated. RESPIRATORY: Chest is symmetrical. No intercostals muscle retraction or any accessory muscle activation. There is no chest wall tenderness. Breath sounds are heard bilaterally. No rales or rhonchi heard. No evidence of any consolidation. BREASTS: Deferred. HEART: The heart sounds are normal. No S3 or S4. No significant murmurs. No pericardial rub ABDOMEN: No vessel pulsations or distention. No tenderness. No organomegaly appreciated. Bowel sounds are normally heard. : Deferred. RECTAL: Deferred. LYMPHATIC: No lymphadenopathy noted in the neck. EXTREMITIES: 2+ edema both lower extremities. Features of chronic venous stasis. MUSCULOSKELETAL: No acute joint deformities or swelling SKIN: There are no significant rashes or ecchymosis NEUROPSYCHIATRIC: Patient has grade 1-2 power of the both lower extremities. Urinary Catheter Management: Suprapubic: Cath Placed During This Visit: no Reason for Continuing Indwelling Catheter: Chronic Indwelling Urinary Catheter on Admission Data 08/18/24 08:58 08/18/24 08:58 Other Labs: Laboratory Last Values WBC 5.03 10^3/uL (3.29-11.43) 08/18/24 08:58 RBC 4.89 10^6/uL (3.85-5.65) 08/18/24 08:58 Hgb 14.80 g/dL (11.27-16.99) 08/18/24 08:58 Hct 46.0 % (36-47) 08/18/24 08:58 MCV 94.1 fl (85-98) 08/18/24 08:58 MCH 30.3 pg (27-33) 08/18/24 08:58 MCHC 32.2 g/dL (30-55) 08/18/24 08:58 RDW 13.9 % (12.1-15.1) 08/18/24 08:58 Plt Count 557 10^3/cmm (157-399) H 08/18/24 08:58 MPV 10.5 fL (7.4-10.4) H 08/18/24 08:58 Neut % (Auto) 56.0 % 08/18/24 08:58 Lymph % (Auto) 29.0 % 08/18/24 08:58 [place] % (Auto) 7.8 % 08/18/24 08:58 Eos % (Auto) 6.2 % 08/18/24 08:58 Baso % (Auto) 0.8 % 08/18/24 08:58 Neut # (Auto) 2.82 10^3/uL (1.8-7.7) 08/18/24 08:58 Lymph # (Auto) 1.5 10^3/uL (0.8-4.8) 08/18/24 08:58 [place] # (Auto) 0.4 10^3/uL (0.2-0.9) 08/18/24 08:58 Eos # (Auto) 0.3 10^3/uL (0.0-0.8) 08/18/24 08:58 Baso # (Auto) 0.0 10^3/uL (0.0-0.1) 08/18/24 08:58 Nucleated RBC % (auto) 0 % 08/18/24 08:58 Nucleated RBCs # 0.0 /100WBC 08/18/24 08:58 PT 33.00 SECONDS (12.1-14.9) H 08/18/24 08:58 INR 3.03 (0.8-1.2) H 08/18/24 08:58 Sodium 141 mmol/L (136-145) 08/18/24 08:58 Potassium 3.9 mmol/L (3.5-5.1) 08/18/24 08:58 Chloride 103 mmol/L (98-107) 08/18/24 08:58 Carbon Dioxide 26 mmol/L (22-29) 08/18/24 08:58 Anion Gap 15.9 (5-19) 08/18/24 08:58 BUN 19 mg/dL (6-20) 08/18/24 08:58 Creatinine 0.7 mg/dL (0.5-0.9) 08/18/24 08:58 GFR Calculation 86.6 mL/min (90-130) L 08/18/24 08:58 Glucose 107 mg/dL (65-115) 08/18/24 08:58 Calculated Osmolality 295 mOsm/kg (285-295) 08/18/24 08:58 Calcium 9.4 mg/dL (8.5-10.5) 08/18/24 08:58 Total Bilirubin 0.2 mg/dL (0.15-1.2) 08/18/24 08:58 AST 39 U/L (0-32) H 08/18/24 08:58 ALT 47 U/L (0-33) H 08/18/24 08:58 Alkaline Phosphatase 93 U/L (35-105) 08/18/24 08:58 Troponin T Baseline 20 ng/L (0-10) H 08/18/24 08:58 Troponin T 120 Minute 20.21 ng/L (0-10) H 08/18/24 11:30 Delta Troponin T 0.21 ABS# (0-10) 08/18/24 11:30 Troponin T Hi Sens 6Hr 20.39 ng/L (0-10) H 08/18/24 14:59 Troponin T Hi Sens 6Hr Delta 0.39 ng/L (0-12) 08/18/24 14:59 Total Protein 8.0 g/dL (6.6-8.7) 08/18/24 08:58 Albumin 4.2 g/dL (3.5-5.2) 08/18/24 08:58 Globulin 3.8 g/dL (1.3-4.6) 08/18/24 08:58 Coronavirus (PCR) Negative (Negative) 08/18/24 09:49 Influenza A (PCR) Negative (Negative) 08/18/24 09:49 Influenza Type B (PCR) Negative (Negative) 08/18/24 09:49 RSV (PCR) Negative (Negative) 08/18/24 09:49 EKG 1: My Interpretation: Normal sinus rhythm with low voltage complexes in the precordial leads. Nonspecific T wave changes. Minimal voltage criteria for LVH. Other data: Myocardial perfusion imaging from 08/03/2024. Large area of moderate to severe ischemia noted in basal to distal and basal to mid inferolateral wall of the left ventricle suggestive of possible lesion in left circumflex. Medium sized area of moderate to severe ischemia noted in the distal LAD/apex of left ventricle. EKG segment will be documented separately. A&P Assessment and plan (1) Unstable angina: Patient's symptoms are suggestive of an unstable angina. Hemodynamically she seems to be stable. She may be treated with a subcu Lovenox, beta-zara, aspirin, statin and nitrates. For further evaluation of her symptoms, she requires a cardiac catheterization. (2) Positive cardiac stress test: The abnormal Myocardial perfusion imaging is a history of multivessel coronary disease. This needs to be further evaluated by coronary angiogram. (3) GERD (gastroesophageal reflux disease): May continue on the current medications Qualifiers: Esophagitis presence: without esophagitis Qualified Code(s): K21.9 - Gastro-esophageal reflux disease without esophagitis Plan The other problems are T4 paraplegia neurogenic bladder with suprapubic catheter Status post colostomy Decubitus ulcer in the sacrum Obesity Serial enzymes and EKGs to be appropriate ruled myocardial infarction. She may benefit from a cardiac catheterization. But because of the long-term oral anticoagulation, we may have to wait till the INR get back to the acceptable levels. Will discontinue the warfarin at this time. Start on Lovenox, when the INR gets down to 2 Lipitor 40 mg p.o. daily Lipid profile on the blood in the lab Echocardiogram Continue the low-dose beta-zara and aspirin Based on the clinical progress, further recommendations will be made. Thank you for the opportunity to evaluate this patient and make these recommendations PDMP PDMP Reviewed: Not Reviewed Coding Level of Care Code 22951 Diagnoses Unstable angina I20.0 Positive cardiac stress test R94.39 Gastroesophageal reflux disease without esophagitis K21.9 Esophagitis presence: without esophagitis
[2024-08-19 04:28] LABS: Basophils % 0.2 %; Eosinophils # 0.3 10^3/uL (0.0-0.8); Eosinophils % 5.9 %; Hematocrit 41.3 % (36-47); Lymphocytes # 1.5 10^3/uL (0.8-4.8); Lymphocytes % 29.6 %; Mean Corpuscular HGB Conc 32.2 g/dL (30-55); Mean Corpuscular Hemoglobin 30.1 pg (27-33); Mean Corpuscular Volume 93.4 fl (85-98); Mean Platelet Volume 10.3 fL (7.4-10.4); Monocytes # 0.5 10^3/uL (0.2-0.9); Monocytes % 9.1 %; Neutrophils # 2.71 10^3/uL (1.8-7.7); Nucleated Red Blood Cells % 0 %; Platelet Count 460 10^3/cmm (157-399); Red Blood Count 4.42 10^6/uL (3.85-5.65); Red Cell Distribution Width 13.9 % (12.1-15.1); White Blood Count 4.93 10^3/uL (3.29-11.43)
[2024-08-19 04:47] LABS: Blood Urea Nitrogen 19 mg/dL (6-20); Calcium 9.2 mg/dL (8.5-10.5); Carbon Dioxide 26 mmol/L (22-29); Chloride 106 mmol/L (98-107); Chol HDL Ratio 4.11 mg/dL (0.0-4.40); Cholesterol 115 mg/dL (0-200); Creatinine Clr Calc Pharmacy 116.7158; Estmated Average Glucose 117; Glomerular Filtration Rate 86.6 mL/min (90-130); Glucose 104 mg/dL (65-115); HDL Cholesterol 28 mg/dL (60-100); Hemoglobin A1C 5.7 % (4.0-6.0); LDL Cholesterol Calculated 63 mg/dL (50-129); LDL HDL Ratio 2.25 RATIO (0.00-3.22); Magnesium 1.8 mg/dL (1.7-2.3); Osmolality Calculated 295 mOsm/kg (285-295); Phosphorus 3.5 mg/dL (2.5-4.5); Sodium 141 mmol/L (136-145); Triglycerides 121 mg/dL (0-150)
[2024-08-19 05:22] LABS: INR 2.99 (0.8-1.2)
[2024-08-19 05:31] LABS: Bilirubin Urine Negative (Negative); Blood Urine 2+ (Negative); Glucose Urine UA Negative (Normal); Ketones Urine Trace (Negative); Leukocyte Esterase Urine Trace (Negative); Nitrate Urine Positive (Negative); Protein Urine 1+ (Negative); Urine Appearance Turbid (CLEAR); Urine Color Yellow (Yellow); pH Urine 5.5 (5-7)
[2024-08-19 05:35] LABS: Add Urine Microscopic? YES; Bacteria Urine 4+ /hpf; Hyaline Casts Urine 7.01 /lpf; RBC Urine 51-100 /hpf (0-2); Squamous Epithelial Cell Urine 0-5 /hpf (0-5); WBC Urine 51-100 /hpf (0-5)
[2024-08-19 05:47] LABS: Add Urine Culture? Yes; Mucus Urine 2+ /hpf; Specific Gravity, Urine 1.057 (1.005-1.030); UA Slide Review UA Slide Review Perf
[2024-08-19] MEDS: aspirin 81 mg Chew Tablet PO (07:57)
[2024-08-19] MEDS: ascorbic acid 500 mg Tablet 1000 MG PO ×2 (07:57→18:01)
[2024-08-19] MEDS: cefdinir 300 MG CAPSULE PO (07:58)
[2024-08-19] MEDS: FUROsemide 20 mg Tablet PO (07:58)
--- NOTE | 2024-08-19 10:07 | PC.CHAP ---
Pastoral Care Encounter/Spiritual Assessment Type of Contact [] Declined hose turner visit [] Patient/Family/Request visit [] Outpatient visit [] Follow-up visit [] Physician referral [] Code/Alert [x] Routine visit [] Staff referral [] Actively dying [] Patient sleeping [x] Family support [] [] Out of room [] Palliative care [] [] Receiving care in room [] Pre-surgical visit [] Trauma [] Long length of stay [] ICU visit [] Other: Relational/Emotional Strength [x] Patient feels connected with others/family/visitors/staff [] Distress [] Loneliness/isolation [] Abandonment Spirituality of Patient [x] Person of Shyann [] Attends Denominational of their Shyann [x] Believes in Prayer [] Reads Bible or Mu-Ism materials [] There are Spiritual issues to be addressed Golf Course Keeper Interventions [x] Prayer [x] Active listening [] Non-anxious presence [x] Spiritual/emotional support [] Crisis/trauma care [] Spiritual counseling [] Bereavement support [] Provided bereavement packet [] Provided Bible/devotional materials [] Provided toy/stuffed animal, coloring book to patient or family member [] Provided Communion [] Anointing/Sells [] Salvation [x] Completed spiritual assessment [] Other: Impact on Illness or Injury [] Angry [] Fearful [] Anxious [] Often cries [] Exhaustion [] Unable to work [] Unable to attend nondenominational [] Unable to walk/stand [] Unable to read [] Unable to drive [] Unable to eat/drink [] Unable to sleep [] Unable to be with family [] Patient intubated [] Other: Summary Time spent with patient 5 min
--- NOTE | 2024-08-19 11:27 | PC.OT ---
OT EVALUATION ORDERS RECEIVED. SPOKE WITH PATIENT ABOUT EQUIPMENT NEEDS WHILE IN HOSPITAL PER ORDER REQUEST. PATIENT STATES THAT SHE USUALLY USES A SLIDING BOARD; WHICH HER FAMILY CAN BRING IN. THERAPIST ALSO MENTIONED THE SIT TO STAND DEVICE THAT COULD BE UTILIZED IF NEEDED TO TRANSFER FROM EOB TO W/C; OR TO USE HOVER MAT. PATIENT IN AGREEMENT AND NURSING INFORMED WELL. NO FURTHER SKILLED OT REQUIRED AT THIS TIME.
--- NOTE | 2024-08-19 11:40 | P.PN_ITS ---
Subjective 2 Subjective: Seen this morning. No acute events overnight. She is awaiting coronary angiogram in a.m. INR 2.9 today. Warfarin has been held. Vitals/I&O/Wt Last Vital Signs Temp 98.2 F 08/19/24 04:00 Pulse 72 08/19/24 09:30 Resp 16 08/19/24 09:30 BP 144/66 08/19/24 09:30 Pulse Ox 96 08/19/24 09:30 O2 Del Method BiPAP 08/19/24 04:00 08/18/24 08/19/24 08/19/24 22:59 06:59 14:59 Intake Total 100 / 100 360 / 360 Output Total 0 / 0 300 / 300 Balance 100 / 100 -300 / -200 360 / 360 Weight last 48 hrs Weight 127.369 kg Weight 127.369 kg Weight 136.078 kg Physical Exam 2 Narrative: General: Alert oriented x3, patient seen laying in bed appearing comfortable at this time. HEENT: Normocephalic, atraumatic, EOMI Cardio: Regular rate rhythm, normal S1-S2, patient denies chest pain at this time. Respiratory: Clear to auscultation bilaterally no wheezes no rhonchi appreciated at this time. GI: Abdomen soft, nontender, nondistended, bowel sounds +Colostomy is intact to the left lower quadrant. Behavior: Appropriate and cooperative Extremities: Have not viewed sacral wound at this time but per report dressing is in place from most recent change. Right lower extremity is larger in diameter than left lower extremity. Both legs have dry skin with some stasis changes. Healing scabbed sore to right lower extremity noted above the ankle. Dry skin to both feet. Left great toe with healing wound at the nailbed. Heels are both soft. Has some sensation to light touch at both feet. Speech is clear. Face symmetric. Normal affect. Urinary Catheter Management: Suprapubic: Cath Placed During This Visit: no Reason for Continuing Indwelling Catheter: Chronic Indwelling Urinary Catheter on Admission Data 08/19/24 04:00 08/19/24 04:00 A&P Assessment and plan (1) Unstable angina: With increasing frequency of chest pain episodes as described at rest and with exertion. Baseline activity level is limited to transfers. Cardiac stress testing done on August 05 in the outpatient setting showed no Lexiscan induced symptoms or rhythm changes, normal blood pressure and heart rate response but myocardial perfusion scan showed large area of moderate to severe ischemia in the basal to distal and basal to mid inferior lateral wall of the left ventricle suggestive of possible lesion in the left circumflex. Also noted was a medium sized area of moderate to severe ischemia in the distal LAD and apex of the left ventricle. Has received aspirin. Is currently chest pain-free. (2) Chronic anticoagulation: On warfarin due to history of DVT and PE in 2004. Takes warfarin at bedtime so last dose was on 08/17/2024. Current INR is therapeutic at 3. 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 Current dressing management includes drawtex [place] conductive wound dressing in the wound with gauze 4 x 4 covered with ABD pad and secured with 3M Medipore tape twice daily. Last debridement on August 12. White count is normal. Qualifiers: Encounter type: subsequent encounter Qualified Code(s): S31.000D - Unspecified open wound of lower back and pelvis without penetration into retroperitoneum, subsequent encounter (4) Chronic cystitis: Chronically on cefdinir for prophylaxis. Also continued taking vitamin C after stopping mirabrgron. No recent urinary symptoms. 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 Wheelchair dependent, able to use transfer aids, live alone with family support. On gabapentin and baclofen at bedtime. (6) SAVAGE on CPAP: With sleep (7) History of DVT (deep vein thrombosis): And pulmonary embolism in 2007, had IVC filter placed, on chronic warfarin. CTA of the chest today showed normal pulmonary arteries. (8) Lymphedema: Chronically on furosemide and potassium, has used lymphedema wraps in past, currently doing well, right leg always larger than left, known venous stasis changes (9) Depression: Chronically on venlafaxine, has trazodone for sleep. Qualifiers: Depression Type: other depression Qualified Code(s): F32.89 - Other specified depressive episodes (10) GERD (gastroesophageal reflux disease): Chronically on omeprazole. Qualifiers: Esophagitis presence: without esophagitis Qualified Code(s): K21.9 - Gastro-esophageal reflux disease without esophagitis (11) Suprapubic catheter: Not due for change currently. No change in urine output. (12) Colostomy in place: No recent change in ostomy output, daughter will bring in her bags. Takes docusate at bedtime. (13) BMI 50.0-59.9, adult: Not know to have associated OHS, but can get hypoxic with illness and has as needed oxygen at home, most recent need 06/2024 Plan Widened mediastinum on chest x-ray but CTA of the chest without evidence of dissection or aneurysm Elevated platelets, normal end of June at 320 Mild transaminase elevation and mild hepatomegaly likely related to fatty liver disease Respiratory viral panel checked and negative 08/18/2024 Inpatient admission Cardiology consultation for anticipated catheterization Hold warfarin, daily INR with bridging therapy as needed Aspirin, beta-blockade, nitrates monitoring blood pressures closely Continue serial cardiac enzymes and EKGs Telemetry monitoring Echocardiogram though may be limited windows due to body habitus Check lipid panel and A1c for risk stratification Wound care for sacral area, frequent turning Continue cefdinir prophylaxis and vitamin C Check UA Continue home baclofen and gabapentin Cpap with sleep Supplemental oxygen if needed Monitor lymphedema and stasis changes Continue home venlafaxine and trazodone Continue home omeprazole Routine chronic catheter management, will not be removed this stay, will change to bedside bag as needed Routine colostomy care VTE prophylaxis: on warfarin, therapeutic at admit, being held for planned procedure,with plan to restart after procedure, bridging as needed, lymphedema in lower extremities limits ability to effectively use SCDs GI Prophylaxis: PPI chronically Antibiotics: cefdinir chronically for prophylaxis Pending studies: UA, 6 hr troponin, am lipid panel and A1c Telemetry: ordered due to presenting complaint Mahajan: chronic suprapubic catherter present on admisison Line(s): peripheral IVs Disposition plan: Home with outpatient follow up to cardiology 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 Already has appointments scheduled in September with [facility]. Code Status: Full Code Supportive care otherwise Findings, concerns and plans were discussed with patient and she was given an opportunity to ask questions. We discussed cardiac cardiac catheterization procedure, plan for cardiology consultation and medication management plan around anticoagulation. 08/19/2024 Hold warfarin at this time. Continue aspirin beta-zara nitrates Echo pending Lipid panel A1c pending Continue wound care as per wound care instructions Continue cefdinir Continue baclofen and gabapentin Continue venlafaxine trazodone N.p.o. midnight for potential angiogram in a.m. Check CBC CMP INR in AM. Await urine culture. PDMP PDMP Reviewed: Not Reviewed Attestations 2 Medical Necessity Statement*: Plan for coronary angiogram in a.m. Diagnoses Unstable angina I20.0 Chronic anticoagulation Z79.01 Wound of sacral region, subsequent encounter S31.000D Encounter type: subsequent encounter Chronic cystitis N30.20 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 SAVAGE on CPAP G47.33 History of DVT (deep vein thrombosis) Z86.718 Lymphedema I89.0 Other depression F32.89 Depression Type: other depression Gastroesophageal reflux disease without esophagitis K21.9 Esophagitis presence: without esophagitis Suprapubic catheter Z93.[address] Z93.3 BMI 50.0-59.9, adult Z68.43
--- NOTE | 2024-08-19 16:30 | PM.PN ---
Subjective Subjective: Patient is feeling okay. She had a few episodes of tightness in the chest. Overall she seems to be doing okay. Medications: Medication Review Details: Current Medications Acetaminophen (Acetaminophen 325 Mg Tablet) 650 mg PO Q6H PRN PRN Reason: Mild/Mod Pain Or Temp >/= 101 Albuterol Sulfate (Albuterol 2.5 Mg/3 Ml Neb) 2.5 mg INHALATION Q6H.RESP PRN PRN Reason: SHORTNESS OF BREATH Ascorbic Acid (Ascorbic Acid 500 Mg Tablet) 1,000 mg PO BID [facility] Last Admin: 08/19/24 07:57 Dose: 1,000 mg Aspirin (Aspirin 81 Mg Chew Tablet) 81 mg PO DAILY [facility] Last Admin: 08/19/24 07:57 Dose: 81 mg Atorvastatin Calcium (Atorvastatin 40 Mg Tablet) 40 mg PO BEDTIME [facility] Baclofen (Baclofen 10 Mg Tablet) 20 mg PO BEDTIME [facility] Last Admin: 08/18/24 21:08 Dose: 20 mg Bisacodyl (Bisacodyl 5 Mg Tablet) 10 mg PO DAILY PRN; Protocol PRN Reason: Constipation (see protocol) Cefdinir (Cefdinir 300 Mg Capsule) 300 mg PO DAILY [facility]; Protocol Last Admin: 08/19/24 07:58 Dose: 300 mg Docusate Sodium (Docusate Sodium 100 Mg Capsule) 100 mg PO BEDTIME [facility] Last Admin: 08/18/24 21:09 Dose: 100 mg Furosemide (Furosemide 20 Mg Tablet) 20 mg PO DAILY@0800 [facility] Last Admin: 08/19/24 07:58 Dose: 20 mg Gabapentin (Gabapentin 300 Mg Capsule) 600 mg PO BEDTIME [facility] Last Admin: 08/18/24 21:09 Dose: 600 mg Metoprolol Succinate (Metoprolol Succinate Er (24 Hr) 25 Mg Tablet) 12.5 mg PO BEDTIME [facility] Last Admin: 08/18/24 21:09 Dose: 12.5 mg Nitroglycerin (Nitroglycerin 0.4 Mg Sublingual Tablet) 0.4 mg SUBLINGUAL Q5M PRN PRN Reason: CHEST PAIN Ondansetron HCl (Ondansetron 2 Mg/Ml Sdv 2 Ml) 4 mg IVP Q8H PRN PRN Reason: vomiting, or N/V if npo Pantoprazole Sodium (Pantoprazole Dr 40 Mg Tablet) 40 mg PO BEDTIME [facility]LOS Last Admin: 08/18/24 21:08 Dose: 40 mg Potassium Chloride (Potassium Chloride Er 20 Meq Tablet) 20 meq PO BEDTIME CARLOS Last Admin: 08/18/24 21:09 Dose: 20 meq Trazodone HCl (Trazodone 50 Mg Tablet) 50 mg PO BEDTIME PRN PRN Reason: insomnia Last Admin: 08/18/24 21:09 Dose: 50 mg Venlafaxine HCl (Venlafaxine Er (24hr) 150 Mg Capsule) 150 mg PO BEDTIME [facility]LOS Last Admin: 08/18/24 21:09 Dose: 150 mg Vitals/I&O/Wt Last Vital Signs Temp 98.7 F 08/19/24 12:00 Pulse 74 08/19/24 12:00 Resp 16 08/19/24 12:00 BP 115/52 08/19/24 12:00 Pulse Ox 95 08/19/24 12:00 O2 Del Method Room Air 08/19/24 12:00 08/19/24 08/19/24 08/19/24 06:59 14:59 22:59 Intake Total 720 / 720 Output Total 300 / 300 Balance -300 / -200 720 / 720 Weight last 48 hrs Weight 280 lb 12.8 oz Weight 280 lb 12.8 oz Weight 300 lb Physical Exam Narrative: GENERAL: The patient is alert and oriented times three. Not in any acute distress. Obese HEENT: No significant pallor, icterus or lymphadenopathy.Oral cavity: There are no mucous membrane lesions. NECK: Trachea appears to be central. No masses noted. No JVD or thyromegaly appreciated. RESPIRATORY: Chest is symmetrical. No intercostals muscle retraction or any accessory muscle activation. There is no chest wall tenderness. Breath sounds are heard bilaterally. No rales or rhonchi heard. No evidence of any consolidation. BREASTS: Deferred. HEART: The heart sounds are normal. No S3 or S4. No significant murmurs. No pericardial rub ABDOMEN: No vessel pulsations or distention. No tenderness. No organomegaly appreciated. Bowel sounds are normally heard. : Deferred. RECTAL: Deferred. LYMPHATIC: No lymphadenopathy noted in the neck. EXTREMITIES:1- 2+ edema both lower extremities. Features of chronic venous stasis. MUSCULOSKELETAL: No acute joint deformities or swelling SKIN: There are no significant rashes or ecchymosis NEUROPSYCHIATRIC: Patient has grade 1-2 power of the both lower extremities. Urinary Catheter Management: Suprapubic: Cath Placed During This Visit: no Reason for Continuing Indwelling Catheter: Chronic Indwelling Urinary Catheter on Admission Data 08/20/24 05:21 08/20/24 03:54 Other Labs: Laboratory Last Values WBC 4.93 10^3/uL (3.29-11.43) 08/19/24 04:00 RBC 4.42 10^6/uL (3.85-5.65) 08/19/24 04:00 Hgb 13.30 g/dL (11.27-16.99) 08/19/24 04:00 Hct 41.3 % (36-47) 08/19/24 04:00 MCV 93.4 fl (85-98) 08/19/24 04:00 MCH 30.1 pg (27-33) 08/19/24 04:00 MCHC 32.2 g/dL (30-55) 08/19/24 04:00 RDW 13.9 % (12.1-15.1) 08/19/24 04:00 Plt Count 460 10^3/cmm (157-399) H 08/19/24 04:00 MPV 10.3 fL (7.4-10.4) 08/19/24 04:00 Neut % (Auto) 55.0 % 08/19/24 04:00 Lymph % (Auto) 29.6 % 08/19/24 04:00 [place] % (Auto) 9.1 % 08/19/24 04:00 Eos % (Auto) 5.9 % 08/19/24 04:00 Baso % (Auto) 0.2 % 08/19/24 04:00 Neut # (Auto) 2.71 10^3/uL (1.8-7.7) 08/19/24 04:00 Lymph # (Auto) 1.5 10^3/uL (0.8-4.8) 08/19/24 04:00 [place] # (Auto) 0.5 10^3/uL (0.2-0.9) 08/19/24 04:00 Eos # (Auto) 0.3 10^3/uL (0.0-0.8) 08/19/24 04:00 Baso # (Auto) 0.0 10^3/uL (0.0-0.1) 08/19/24 04:00 Nucleated RBC % (auto) 0 % 08/19/24 04:00 Nucleated RBCs # 0.0 /100WBC 08/19/24 04:00 PT 32.70 SECONDS (12.1-14.9) H 08/19/24 04:00 INR 2.99 (0.8-1.2) H 08/19/24 04:00 Sodium 141 mmol/L (136-145) 08/19/24 04:00 Potassium 4.0 mmol/L (3.5-5.1) 08/19/24 04:00 Chloride 106 mmol/L (98-107) 08/19/24 04:00 Carbon Dioxide 26 mmol/L (22-29) 08/19/24 04:00 Anion Gap 13.0 (5-19) 08/19/24 04:00 BUN 19 mg/dL (6-20) 08/19/24 04:00 Creatinine 0.7 mg/dL (0.5-0.9) 08/19/24 04:00 GFR Calculation 86.6 mL/min (90-130) L 08/19/24 04:00 Glucose 104 mg/dL (65-115) 08/19/24 04:00 Estimat Average Glucose 117 08/19/24 04:00 Hemoglobin A1c 5.7 % (4.0-6.0) 08/19/24 04:00 Calculated Osmolality 295 mOsm/kg (285-295) 08/19/24 04:00 Calcium 9.2 mg/dL (8.5-10.5) 08/19/24 04:00 Phosphorus 3.5 mg/dL (2.5-4.5) 08/19/24 04:00 Magnesium 1.8 mg/dL (1.7-2.3) 08/19/24 04:00 Total Bilirubin 0.2 mg/dL (0.15-1.2) 08/18/24 08:58 AST 39 U/L (0-32) H 08/18/24 08:58 ALT 47 U/L (0-33) H 08/18/24 08:58 Alkaline Phosphatase 93 U/L (35-105) 08/18/24 08:58 Troponin T Baseline 20 ng/L (0-10) H 08/18/24 08:58 Troponin T 120 Minute 20.21 ng/L (0-10) H 08/18/24 11:30 Delta Troponin T 0.21 ABS# (0-10) 08/18/24 11:30 Troponin T Hi Sens 6Hr 20.39 ng/L (0-10) H 08/18/24 14:59 Troponin T Hi Sens 6Hr Delta 0.39 ng/L (0-12) 08/18/24 14:59 Total Protein 8.0 g/dL (6.6-8.7) 08/18/24 08:58 Albumin 4.2 g/dL (3.5-5.2) 08/18/24 08:58 Globulin 3.8 g/dL (1.3-4.6) 08/18/24 08:58 Triglycerides 121 mg/dL (0-150) 08/19/24 04:00 Cholesterol 115 mg/dL (0-200) 08/19/24 04:00 LDL Cholesterol, Calc 63 mg/dL (50-129) 08/19/24 04:00 HDL Cholesterol 28 mg/dL (60-100) L 08/19/24 04:00 LDL/HDL Ratio 2.25 RATIO (0.00-3.22) 08/19/24 04:00 Cholesterol/HDL Ratio 4.11 mg/dL (0.0-4.40) 08/19/24 04:00 Urine Color Yellow (Yellow) 08/19/24 04:47 Urine Appearance Turbid (CLEAR) A 08/19/24 04:47 Urine pH 5.5 (5-7) 08/19/24 04:47 Ur Specific [place] 1.057 (1.005-1.030) H 08/19/24 04:47 Urine Protein 1+ (Negative) A 08/19/24 04:47 Urine Glucose (UA) Negative (Normal) 08/19/24 04:47 Urine Ketones Trace (Negative) 08/19/24 04:47 Urine Blood 2+ (Negative) A 08/19/24 04:47 Urine Nitrate Positive (Negative) A 08/19/24 04:47 Urine Bilirubin Negative (Negative) 08/19/24 04:47 Urine Urobilinogen 1.0 mg/dL (Negative) 08/19/24 04:47 Ur Leukocyte Esterase Trace (Negative) A 08/19/24 04:47 Urine RBC 51-100 /hpf (0-2) H 08/19/24 04:47 Urine WBC 51-100 /hpf (0-5) H 08/19/24 04:47 Ur Squamous Epith Cells 0-5 /hpf (0-5) 08/19/24 04:47 Calcium Oxalate Crystal 10-15 /hpf H 08/19/24 04:47 Amorphous Sediment Not Reportable 08/19/24 04:47 Urine Bacteria 4+ /hpf (NONE) H 08/19/24 04:47 Hyaline Casts 7.01 /lpf 08/19/24 04:47 Urine Mucus 2+ /hpf 08/19/24 04:47 Coronavirus (PCR) Negative (Negative) 08/18/24 09:49 Influenza A (PCR) Negative (Negative) 08/18/24 09:49 Influenza Type B (PCR) Negative (Negative) 08/18/24 09:49 RSV (PCR) Negative (Negative) 08/18/24 09:49 Other data: Echocardiogram was reviewed. The LV ejection fraction was normal. No gross wall motion abnormalities. The study was of suboptimal quality. A&P Assessment and plan (1) Unstable angina: Patient's symptoms are suggestive of an unstable angina. Hemodynamically she seems to be stable. She may be treated with a subcu Lovenox, beta-zara, aspirin, statin and nitrates. For further evaluation of her symptoms, she requires a cardiac catheterization. (2) Positive cardiac stress test: The abnormal Myocardial perfusion imaging is a history of multivessel coronary disease. This needs to be further evaluated by coronary angiogram. (3) GERD (gastroesophageal reflux disease): May continue on the current medications Qualifiers: Esophagitis presence: without esophagitis Qualified Code(s): K21.9 - Gastro-esophageal reflux disease without esophagitis (4) History of DVT (deep vein thrombosis): Patient is on long-term oral anticoagulation. The warfarin is on hold. INR today is 2.99. Plan The other problems are T4 paraplegia neurogenic bladder with suprapubic catheter Status post colostomy Decubitus ulcer in the sacrum Obesity Continue on the current management. We may wait till the INR become acceptable for the angiogram. PDMP PDMP Reviewed: Not Reviewed Attestations Medical Necessity Statement*: Patient requires continued hospital stay for close monitoring and further management Coding Level of Care Code 64568 Diagnoses Unstable angina I20.0 Positive cardiac stress test R94.39 Gastroesophageal reflux disease without esophagitis K21.9 Esophagitis presence: without esophagitis History of DVT (deep vein thrombosis) Z86.718
[2024-08-19] MEDS: atorvastatin 40 mg Tablet PO (20:03)
[2024-08-19] MEDS: pantoprazole DR 40 mg Tablet PO (20:04)
[2024-08-19] MEDS: baclofen 10 mg Tablet 20 MG PO (20:04)
[2024-08-19] MEDS: metoprolol succinate ER (24 HR) 25 mg Tablet 12.5 MG PO (20:04)
[2024-08-19] MEDS: potassium chloride ER 20 mEq Tablet PO (20:04)
[2024-08-19] MEDS: docusate sodium 100 mg Capsule PO (20:04)
[2024-08-19] MEDS: venlafaxine ER (24HR) 150 mg Capsule PO (20:04)
[2024-08-19] MEDS: trazodone 50 mg Tablet PO (20:04)
[2024-08-19] MEDS: gabapentin 300 mg Capsule 600 MG PO (20:04)
[2024-08-20] VITALS (10 sets, daily range): BP systolic 99–125; BP diastolic 54–77; PULSE 63–75; RESP 14–21; TEMP 36.4–36.6; O2SAT 91–97
[2024-08-20 05:10] LABS: Blood Urea Nitrogen 17 mg/dL (6-20); Calcium 9.1 mg/dL (8.5-10.5); Carbon Dioxide 24 mmol/L (22-29); Chloride 102 mmol/L (98-107); Creatinine Clr Calc Pharmacy 102.1263; Glomerular Filtration Rate 74.2 mL/min (90-130); Glucose 107 mg/dL (65-115); Magnesium 1.9 mg/dL (1.7-2.3); Osmolality Calculated 292 mOsm/kg (285-295); Sodium 140 mmol/L (136-145)
[2024-08-20 05:13] LABS: Anion Gap 18.5 (5-19); Potassium 4.5 mmol/L (3.5-5.1)
[2024-08-20 05:37] LABS: Basophils % 0.8 %; Eosinophils # 0.3 10^3/uL (0.0-0.8); Hematocrit 41.2 % (36-47); Lymphocytes # 1.5 10^3/uL (0.8-4.8); Mean Corpuscular HGB Conc 30.8 g/dL (30-55); Mean Corpuscular Hemoglobin 30.1 pg (27-33); Mean Corpuscular Volume 97.6 fl (85-98); Mean Platelet Volume 10.1 fL (7.4-10.4); Monocytes # 0.5 10^3/uL (0.2-0.9); Monocytes % 9.4 %; Neutrophils # 2.95 10^3/uL (1.8-7.7); Neutrophils % 56.6 %; Nucleated Red Blood Cells % 0 %; Platelet Count 396 10^3/cmm (157-399); Red Blood Count 4.22 10^6/uL (3.85-5.65); White Blood Count 5.21 10^3/uL (3.29-11.43)
[2024-08-20 05:48] LABS: INR 2.19 (0.8-1.2)
--- NOTE | 2024-08-20 06:21 | PM.PN ---
Subjective Subjective: The patient is feeling okay. No significant chest pain. No new symptoms. Started on IV heparin today Medications: Medication Review Details: Current Medications Acetaminophen (Acetaminophen 325 Mg Tablet) 650 mg PO Q6H PRN PRN Reason: Mild/Mod Pain Or Temp >/= 101 Albuterol Sulfate (Albuterol 2.5 Mg/3 Ml Neb) 2.5 mg INHALATION Q6H.RESP PRN PRN Reason: SHORTNESS OF BREATH Ascorbic Acid (Ascorbic Acid 500 Mg Tablet) 1,000 mg PO BID [facility] Last Admin: 08/19/24 18:01 Dose: 1,000 mg Aspirin (Aspirin 81 Mg Chew Tablet) 81 mg PO DAILY [facility] Last Admin: 08/19/24 07:57 Dose: 81 mg Atorvastatin Calcium (Atorvastatin 40 Mg Tablet) 40 mg PO BEDTIME [facility] Last Admin: 08/19/24 20:03 Dose: 40 mg Baclofen (Baclofen 10 Mg Tablet) 20 mg PO BEDTIME [facility] Last Admin: 08/19/24 20:04 Dose: 20 mg Bisacodyl (Bisacodyl 5 Mg Tablet) 10 mg PO DAILY PRN; Protocol PRN Reason: Constipation (see protocol) Cefdinir (Cefdinir 300 Mg Capsule) 300 mg PO DAILY [facility]; Protocol Last Admin: 08/19/24 07:58 Dose: 300 mg Docusate Sodium (Docusate Sodium 100 Mg Capsule) 100 mg PO BEDTIME [facility] Last Admin: 08/19/24 20:04 Dose: 100 mg Furosemide (Furosemide 20 Mg Tablet) 20 mg PO DAILY@0800 [facility] Last Admin: 08/19/24 07:58 Dose: 20 mg Gabapentin (Gabapentin 300 Mg Capsule) 600 mg PO BEDTIME [facility] Last Admin: 08/19/24 20:04 Dose: 600 mg Metoprolol Succinate (Metoprolol Succinate Er (24 Hr) 25 Mg Tablet) 12.5 mg PO BEDTIME [facility] Last Admin: 08/19/24 20:04 Dose: 12.5 mg Nitroglycerin (Nitroglycerin 0.4 Mg Sublingual Tablet) 0.4 mg SUBLINGUAL Q5M PRN PRN Reason: CHEST PAIN Ondansetron HCl (Ondansetron 2 Mg/Ml Sdv 2 Ml) 4 mg IVP Q8H PRN PRN Reason: vomiting, or N/V if npo Pantoprazole Sodium (Pantoprazole Dr 40 Mg Tablet) 40 mg PO BEDTIME [facility] Last Admin: 08/19/24 20:04 Dose: 40 mg Potassium Chloride (Potassium Chloride Er 20 Meq Tablet) 20 meq PO BEDTIME [facility] Last Admin: 08/19/24 20:04 Dose: 20 meq Trazodone HCl (Trazodone 50 Mg Tablet) 50 mg PO BEDTIME PRN PRN Reason: insomnia Last Admin: 08/19/24 20:04 Dose: 50 mg Venlafaxine HCl (Venlafaxine Er (24hr) 150 Mg Capsule) 150 mg PO BEDTIME [facility] Last Admin: 08/19/24 20:04 Dose: 150 mg Vitals/I&O/Wt Last Vital Signs Temp 97.5 F L 08/20/24 04:00 Pulse 63 08/20/24 05:31 Resp 19 H 08/20/24 04:00 BP 103/65 08/20/24 04:00 Pulse Ox 93 08/20/24 04:00 O2 Del Method Room Air 08/20/24 04:00 08/19/24 08/19/24 08/20/24 14:59 22:59 06:59 Intake Total 720 / 720 360 / 1080 200 / 1280 Output Total 1950 / 1950 275 / 2225 Balance 720 / 720 -1590 / -870 -75 / -945 Weight last 48 hrs Weight 280 lb 12.8 oz Weight 280 lb 12.8 oz Weight 280 lb 12.8 oz Weight 300 lb Physical Exam Narrative: GENERAL: The patient is alert and oriented times three. Not in any acute distress. Obese HEENT: No significant pallor, icterus or lymphadenopathy.Oral cavity: There are no mucous membrane lesions. NECK: Trachea appears to be central. No masses noted. No JVD or thyromegaly appreciated. RESPIRATORY: Chest is symmetrical. No intercostals muscle retraction or any accessory muscle activation. There is no chest wall tenderness. Breath sounds are heard bilaterally. No rales or rhonchi heard. No evidence of any consolidation. BREASTS: Deferred. HEART: The heart sounds are normal. No S3 or S4. No significant murmurs. No pericardial rub ABDOMEN: No vessel pulsations or distention. No tenderness. No organomegaly appreciated. Bowel sounds are normally heard. : Deferred. RECTAL: Deferred. LYMPHATIC: No lymphadenopathy noted in the neck. EXTREMITIES:1- 2+ edema both lower extremities. Features of chronic venous stasis. MUSCULOSKELETAL: No acute joint deformities or swelling SKIN: There are no significant rashes or ecchymosis NEUROPSYCHIATRIC: Patient has grade 1-2 power of the both lower extremities. Urinary Catheter Management: Suprapubic: Cath Placed During This Visit: no Reason for Continuing Indwelling Catheter: Chronic Indwelling Urinary Catheter on Admission Data 08/20/24 05:21 08/20/24 03:54 Other Labs: Laboratory Last Values WBC 5.21 10^3/uL (3.29-11.43) 08/20/24 05:21 RBC 4.22 10^6/uL (3.85-5.65) 08/20/24 05:21 Hgb 12.70 g/dL (11.27-16.99) 08/20/24 05:21 Hct 41.2 % (36-47) 08/20/24 05:21 MCV 97.6 fl (85-98) 08/20/24 05:21 MCH 30.1 pg (27-33) 08/20/24 05:21 MCHC 30.8 g/dL (30-55) 08/20/24 05:21 RDW 14.0 % (12.1-15.1) 08/20/24 05:21 Plt Count 396 10^3/cmm (157-399) 08/20/24 05:21 MPV 10.1 fL (7.4-10.4) 08/20/24 05:21 Neut % (Auto) 56.6 % 08/20/24 05:21 Lymph % (Auto) 28.0 % 08/20/24 05:21 [place] % (Auto) 9.4 % 08/20/24 05:21 Eos % (Auto) 5.0 % 08/20/24 05:21 Baso % (Auto) 0.8 % 08/20/24 05:21 Neut # (Auto) 2.95 10^3/uL (1.8-7.7) 08/20/24 05:21 Lymph # (Auto) 1.5 10^3/uL (0.8-4.8) 08/20/24 05:21 [place] # (Auto) 0.5 10^3/uL (0.2-0.9) 08/20/24 05:21 Eos # (Auto) 0.3 10^3/uL (0.0-0.8) 08/20/24 05:21 Baso # (Auto) 0.0 10^3/uL (0.0-0.1) 08/20/24 05:21 Nucleated RBC % (auto) 0 % 08/20/24 05:21 Nucleated RBCs # 0.0 /100WBC 08/20/24 05:21 PT 25.70 SECONDS (12.1-14.9) H 08/20/24 05:21 INR 2.19 (0.8-1.2) H 08/20/24 05:21 Sodium 140 mmol/L (136-145) 08/20/24 03:54 Potassium 4.5 mmol/L (3.5-5.1) 08/20/24 03:54 Chloride 102 mmol/L (98-107) 08/20/24 03:54 Carbon Dioxide 24 mmol/L (22-29) 08/20/24 03:54 Anion Gap 18.5 (5-19) 08/20/24 03:54 BUN 17 mg/dL (6-20) 08/20/24 03:54 Creatinine 0.8 mg/dL (0.5-0.9) 08/20/24 03:54 GFR Calculation 74.2 mL/min (90-130) L 08/20/24 03:54 Glucose 107 mg/dL (65-115) 08/20/24 03:54 Estimat Average Glucose 117 08/19/24 04:00 Hemoglobin A1c 5.7 % (4.0-6.0) 08/19/24 04:00 Calculated Osmolality 292 mOsm/kg (285-295) 08/20/24 03:54 Calcium 9.1 mg/dL (8.5-10.5) 08/20/24 03:54 Phosphorus 3.5 mg/dL (2.5-4.5) 08/19/24 04:00 Magnesium 1.9 mg/dL (1.7-2.3) 08/20/24 03:54 Total Bilirubin 0.2 mg/dL (0.15-1.2) 08/18/24 08:58 AST 39 U/L (0-32) H 08/18/24 08:58 ALT 47 U/L (0-33) H 08/18/24 08:58 Alkaline Phosphatase 93 U/L (35-105) 08/18/24 08:58 Troponin T Baseline 20 ng/L (0-10) H 08/18/24 08:58 Troponin T 120 Minute 20.21 ng/L (0-10) H 08/18/24 11:30 Delta Troponin T 0.21 ABS# (0-10) 08/18/24 11:30 Troponin T Hi Sens 6Hr 20.39 ng/L (0-10) H 08/18/24 14:59 Troponin T Hi Sens 6Hr Delta 0.39 ng/L (0-12) 08/18/24 14:59 Total Protein 8.0 g/dL (6.6-8.7) 08/18/24 08:58 Albumin 4.2 g/dL (3.5-5.2) 08/18/24 08:58 Globulin 3.8 g/dL (1.3-4.6) 08/18/24 08:58 Triglycerides 121 mg/dL (0-150) 08/19/24 04:00 Cholesterol 115 mg/dL (0-200) 08/19/24 04:00 LDL Cholesterol, Calc 63 mg/dL (50-129) 08/19/24 04:00 HDL Cholesterol 28 mg/dL (60-100) L 08/19/24 04:00 LDL/HDL Ratio 2.25 RATIO (0.00-3.22) 08/19/24 04:00 Cholesterol/HDL Ratio 4.11 mg/dL (0.0-4.40) 08/19/24 04:00 Urine Color Yellow (Yellow) 08/19/24 04:47 Urine Appearance Turbid (CLEAR) A 08/19/24 04:47 Urine pH 5.5 (5-7) 08/19/24 04:47 Ur Specific [place] 1.057 (1.005-1.030) H 08/19/24 04:47 Urine Protein 1+ (Negative) A 08/19/24 04:47 Urine Glucose (UA) Negative (Normal) 08/19/24 04:47 Urine Ketones Trace (Negative) 08/19/24 04:47 Urine Blood 2+ (Negative) A 08/19/24 04:47 Urine Nitrate Positive (Negative) A 08/19/24 04:47 Urine Bilirubin Negative (Negative) 08/19/24 04:47 Urine Urobilinogen 1.0 mg/dL (Negative) 08/19/24 04:47 Ur Leukocyte Esterase Trace (Negative) A 08/19/24 04:47 Urine RBC 51-100 /hpf (0-2) H 08/19/24 04:47 Urine WBC 51-100 /hpf (0-5) H 08/19/24 04:47 Ur Squamous Epith Cells 0-5 /hpf (0-5) 08/19/24 04:47 Calcium Oxalate Crystal 10-15 /hpf H 08/19/24 04:47 Amorphous Sediment Not Reportable 08/19/24 04:47 Urine Bacteria 4+ /hpf (NONE) H 08/19/24 04:47 Hyaline Casts 7.01 /lpf 08/19/24 04:47 Urine Mucus 2+ /hpf 08/19/24 04:47 Coronavirus (PCR) Negative (Negative) 08/18/24 09:49 Influenza A (PCR) Negative (Negative) 08/18/24 09:49 Influenza Type B (PCR) Negative (Negative) 08/18/24 09:49 RSV (PCR) Negative (Negative) 08/18/24 09:49 A&P Assessment and plan (1) Unstable angina: Patient is currently pain-free. May continue on the current medication. Repeat INR in the morning possible cardiac colorization tomorrow, if the INR is less than 1.5 (2) Positive cardiac stress test: The abnormal Myocardial perfusion imaging is a history of multivessel coronary disease. This needs to be further evaluated by coronary angiogram. (3) GERD (gastroesophageal reflux disease): May continue on the current medications Qualifiers: Esophagitis presence: without esophagitis Qualified Code(s): K21.9 - Gastro-esophageal reflux disease without esophagitis (4) History of DVT (deep vein thrombosis): Patient is on long-term oral anticoagulation. The warfarin is on hold. INR today is 2.1. Started on IV heparin. Plan The other problems are T4 paraplegia neurogenic bladder with suprapubic catheter Status post colostomy Decubitus ulcer in the sacrum Obesity Will keep n.p.o. after midnight. IV heparin PT/INR in the morning Possible cardiac catheterization tomorrow, if the INR is less than 1.5 PDMP PDMP Reviewed: Not Reviewed Attestations Medical Necessity Statement*: Patient requires continued hospital stay for close monitoring and further management Coding Level of Care Code 04574 Diagnoses Unstable angina I20.0 Positive cardiac stress test R94.39 Gastroesophageal reflux disease without esophagitis K21.9 Esophagitis presence: without esophagitis History of DVT (deep vein thrombosis) Z86.718
[2024-08-20] MEDS: cefdinir 300 MG CAPSULE PO (08:25)
[2024-08-20] MEDS: aspirin 81 mg Chew Tablet PO (08:25)
[2024-08-20] MEDS: ascorbic acid 500 mg Tablet 1000 MG PO ×2 (08:25→17:14)
[2024-08-20] MEDS: FUROsemide 20 mg Tablet PO (08:25)
[2024-08-20] MEDS: heparin drip 25,000 UNIT/500 ML PREMIX 91.71 UNIT IV (10:46)
--- NOTE | 2024-08-20 10:54 | PM.PN ---
Subjective Subjective: Seen this morning. No acute events overnight. INR 2.29 this morning. Vitals/I&O/Wt Last Vital Signs Temp 97.7 F 08/20/24 07:39 Pulse 67 08/20/24 07:39 Resp 20 H 08/20/24 07:39 BP 99/57 08/20/24 07:39 Pulse Ox 95 08/20/24 07:39 O2 Del Method Room Air 08/20/24 07:39 08/19/24 08/20/24 08/20/24 22:59 06:59 14:59 Intake Total 360 / 1080 200 / 1280 120 / 120 Output Total 1950 / 1950 275 / 2225 Balance -1590 / -870 -75 / -945 120 / 120 Weight last 48 hrs Weight 127.369 kg Weight 127.369 kg Weight 127.369 kg Physical Exam Narrative: General: Alert oriented x3, patient seen laying in bed appearing comfortable at this time. HEENT: Normocephalic, atraumatic, EOMI Cardio: Regular rate rhythm, normal S1-S2, patient denies chest pain at this time. Respiratory: Clear to auscultation bilaterally no wheezes no rhonchi appreciated at this time. GI: Abdomen soft, nontender, nondistended, bowel sounds +Colostomy is intact to the left lower quadrant. Behavior: Appropriate and cooperative Extremities: Chronic venous stasis changes. Urinary Catheter Management: Suprapubic: Cath Placed During This Visit: no Reason for Continuing Indwelling Catheter: Chronic Indwelling Urinary Catheter on Admission Data 08/20/24 05:21 08/20/24 03:54 Micro: Microbiology 08/19/24 04:47 Urine Culture - Preliminary Urine,Clean Catch Gram Negative Rods A&P Assessment and plan (1) Unstable angina: With increasing frequency of chest pain episodes as described at rest and with exertion. Baseline activity level is limited to transfers. Cardiac stress testing done on August 05 in the outpatient setting showed no Lexiscan induced symptoms or rhythm changes, normal blood pressure and heart rate response but myocardial perfusion scan showed large area of moderate to severe ischemia in the basal to distal and basal to mid inferior lateral wall of the left ventricle suggestive of possible lesion in the left circumflex. Also noted was a medium sized area of moderate to severe ischemia in the distal LAD and apex of the left ventricle. Has received aspirin. Is currently chest pain-free. (2) Chronic anticoagulation: On warfarin due to history of DVT and PE in 2004. Takes warfarin at bedtime so last dose was on 08/17/2024. Current INR is therapeutic at 3. 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 Current dressing management includes drawtex [place] conductive wound dressing in the wound with gauze 4 x 4 covered with ABD pad and secured with 3M Medipore tape twice daily. Last debridement on August 12. White count is normal. Qualifiers: Encounter type: subsequent encounter Qualified Code(s): S31.000D - Unspecified open wound of lower back and pelvis without penetration into retroperitoneum, subsequent encounter (4) Chronic cystitis: Chronically on cefdinir for prophylaxis. Also continued taking vitamin C after stopping mirabrgron. No recent urinary symptoms. 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 Wheelchair dependent, able to use transfer aids, live alone with family support. On gabapentin and baclofen at bedtime. (6) SAVAGE on CPAP: With sleep (7) History of DVT (deep vein thrombosis): And pulmonary embolism in 2007, had IVC filter placed, on chronic warfarin. CTA of the chest today showed normal pulmonary arteries. (8) Lymphedema: Chronically on furosemide and potassium, has used lymphedema wraps in past, currently doing well, right leg always larger than left, known venous stasis changes (9) Depression: Chronically on venlafaxine, has trazodone for sleep. Qualifiers: Depression Type: other depression Qualified Code(s): F32.89 - Other specified depressive episodes (10) GERD (gastroesophageal reflux disease): Chronically on omeprazole. Qualifiers: Esophagitis presence: without esophagitis Qualified Code(s): K21.9 - Gastro-esophageal reflux disease without esophagitis (11) Suprapubic catheter: Not due for change currently. No change in urine output. (12) Colostomy in place: No recent change in ostomy output, daughter will bring in her bags. Takes docusate at bedtime. (13) BMI 50.0-59.9, adult: Not know to have associated OHS, but can get hypoxic with illness and has as needed oxygen at home, most recent need 06/2024 Plan Widened mediastinum on chest x-ray but CTA of the chest without evidence of dissection or aneurysm Elevated platelets, normal end of June at 320 Mild transaminase elevation and mild hepatomegaly likely related to fatty liver disease Respiratory viral panel checked and negative 08/18/2024 Inpatient admission Cardiology consultation for anticipated catheterization Hold warfarin, daily INR with bridging therapy as needed Aspirin, beta-blockade, nitrates monitoring blood pressures closely Continue serial cardiac enzymes and EKGs Telemetry monitoring Echocardiogram though may be limited windows due to body habitus Check lipid panel and A1c for risk stratification Wound care for sacral area, frequent turning Continue cefdinir prophylaxis and vitamin C Check UA Continue home baclofen and gabapentin Cpap with sleep Supplemental oxygen if needed Monitor lymphedema and stasis changes Continue home venlafaxine and trazodone Continue home omeprazole Routine chronic catheter management, will not be removed this stay, will change to bedside bag as needed Routine colostomy care VTE prophylaxis: on warfarin, therapeutic at admit, being held for planned procedure,with plan to restart after procedure, bridging as needed, lymphedema in lower extremities limits ability to effectively use SCDs GI Prophylaxis: PPI chronically Antibiotics: cefdinir chronically for prophylaxis Pending studies: UA, 6 hr troponin, am lipid panel and A1c Telemetry: ordered due to presenting complaint Mahajan: chronic suprapubic catherter present on admisison Line(s): peripheral IVs Disposition plan: Home with outpatient follow up to cardiology in addition to 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 Already has appointments scheduled in September with [facility]. Code Status: Full Code Supportive care otherwise Findings, concerns and plans were discussed with patient and she was given an opportunity to ask questions. We discussed cardiac cardiac catheterization procedure, plan for cardiology consultation and medication management plan around anticoagulation. 08/19/2024 Hold warfarin at this time. Continue aspirin beta-zara nitrates Echo pending Lipid panel A1c pending Continue wound care as per wound care instructions Continue cefdinir Continue baclofen and gabapentin Continue venlafaxine trazodone N.p.o. midnight for potential angiogram in a.m. Check CBC CMP INR in AM. Await urine culture. 08/20/2024 -Continue cefdinir Called warfarin at this time Continue aspirin Plavix beta-zara Lipid panel resulted. Hemoglobin A1c 5.7. ? Continue home medications ? And be admitted for potential angiogram in a.m. Urine culture grows gram-negative rods. Continue heparin drip Cardiology consulted. Appreciate recommendations PDMP PDMP Reviewed: Not Reviewed Attestations Medical Necessity Statement*: Plan for coronary angiogram in a.m. Diagnoses Unstable angina I20.0 Chronic anticoagulation Z79.01 Wound of sacral region, subsequent encounter S31.000D Encounter type: subsequent encounter Chronic cystitis N30.20 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 SAVAGE on CPAP G47.33 History of DVT (deep vein thrombosis) Z86.718 Lymphedema I89.0 Other depression F32.89 Depression Type: other depression Gastroesophageal reflux disease without esophagitis K21.9 Esophagitis presence: without esophagitis Suprapubic catheter Z93.[address] Z93.3 BMI 50.0-59.9, adult Z68.43
--- NOTE | 2024-08-20 14:08 | PC.NURSE ---
Per phone conversation with Dr Moser, no heparin bolus dose given.
[2024-08-20 16:53] LABS: Partial Thromboplastin Time 103.5 SECONDS (23.9-36.7)
[2024-08-20] MEDS: metoprolol succinate ER (24 HR) 25 mg Tablet 12.5 MG PO (20:18)
[2024-08-20] MEDS: pantoprazole DR 40 mg Tablet PO (20:19)
[2024-08-20] MEDS: trazodone 50 mg Tablet PO (20:19)
[2024-08-20] MEDS: docusate sodium 100 mg Capsule PO (20:19)
[2024-08-20] MEDS: venlafaxine ER (24HR) 150 mg Capsule PO (20:19)
[2024-08-20] MEDS: atorvastatin 40 mg Tablet PO (20:19)
[2024-08-20] MEDS: gabapentin 300 mg Capsule 600 MG PO (20:19)
[2024-08-20] MEDS: potassium chloride ER 20 mEq Tablet PO (20:19)
[2024-08-20] MEDS: baclofen 10 mg Tablet 20 MG PO (20:19)
[2024-08-21] VITALS (10 sets, daily range): BP systolic 121–133; BP diastolic 42–68; PULSE 62–73; RESP 15–22; TEMP 36.5–36.7; O2SAT 91–97
[2024-08-21 01:06] LABS: Basophils % 0.6 %; Eosinophils # 0.3 10^3/uL (0.0-0.8); Eosinophils % 5.1 %; Hematocrit 39.9 % (36-47); Lymphocytes # 2.1 10^3/uL (0.8-4.8); Lymphocytes % 33.8 %; Mean Corpuscular HGB Conc 31.8 g/dL (30-55); Mean Corpuscular Hemoglobin 29.7 pg (27-33); Mean Corpuscular Volume 93.4 fl (85-98); Mean Platelet Volume 10.1 fL (7.4-10.4); Monocytes # 0.6 10^3/uL (0.2-0.9); Monocytes % 8.8 %; Neutrophils % 51.4 %; Nucleated Red Blood Cells % 0 %; Platelet Count 449 10^3/cmm (157-399); Red Blood Count 4.27 10^6/uL (3.85-5.65); Red Cell Distribution Width 13.7 % (12.1-15.1); White Blood Count 6.24 10^3/uL (3.29-11.43)
[2024-08-21 01:28] LABS: Anion Gap 12.7 (5-19); Blood Urea Nitrogen 15 mg/dL (6-20); Carbon Dioxide 30 mmol/L (22-29); Chloride 103 mmol/L (98-107); Creatinine Clr Calc Pharmacy 102.1263; Glomerular Filtration Rate 74.2 mL/min (90-130); Glucose 121 mg/dL (65-115); Magnesium 1.8 mg/dL (1.7-2.3); Osmolality Calculated 296 mOsm/kg (285-295); Potassium 3.7 mmol/L (3.5-5.1); Sodium 142 mmol/L (136-145)
[2024-08-21 01:42] LABS: INR 1.81 (0.8-1.2)
[2024-08-21 01:43] LABS: Partial Thromboplastin Time > 250.0 SECONDS (23.9-36.7)
[2024-08-21 05:36] LABS: Partial Thromboplastin Time 61.3 SECONDS (23.9-36.7)
[2024-08-21] MEDS: heparin drip 25,000 UNIT/500 ML PREMIX 30 UNIT IV (05:50)
--- NOTE | 2024-08-21 08:18 | P.PN_ITS ---
Subjective 2 Subjective: Patient is feeling okay. INR today is 1.8. Had a few episodes of chest discomfort. Overall status seems to be fairly stable. Vital signs are stable. Medications: Medication Review Details: Current Medications Acetaminophen (Acetaminophen 325 Mg Tablet) 650 mg PO Q6H PRN PRN Reason: Mild/Mod Pain Or Temp >/= 101 Albuterol Sulfate (Albuterol 2.5 Mg/3 Ml Neb) 2.5 mg INHALATION Q6H.RESP PRN PRN Reason: SHORTNESS OF BREATH Ascorbic Acid (Ascorbic Acid 500 Mg Tablet) 1,000 mg PO BID [facility] Last Admin: 08/20/24 17:14 Dose: 1,000 mg Aspirin (Aspirin 81 Mg Chew Tablet) 81 mg PO DAILY [facility] Last Admin: 08/20/24 08:25 Dose: 81 mg Atorvastatin Calcium (Atorvastatin 40 Mg Tablet) 40 mg PO BEDTIME [facility] Last Admin: 08/20/24 20:19 Dose: 40 mg Baclofen (Baclofen 10 Mg Tablet) 20 mg PO BEDTIME [facility] Last Admin: 08/20/24 20:19 Dose: 20 mg Bisacodyl (Bisacodyl 5 Mg Tablet) 10 mg PO DAILY PRN; Protocol PRN Reason: Constipation (see protocol) Cefdinir (Cefdinir 300 Mg Capsule) 300 mg PO DAILY [facility]; Protocol Last Admin: 08/20/24 08:25 Dose: 300 mg Docusate Sodium (Docusate Sodium 100 Mg Capsule) 100 mg PO BEDTIME [facility] Last Admin: 08/20/24 20:19 Dose: 100 mg Furosemide (Furosemide 20 Mg Tablet) 20 mg PO DAILY@0800 [facility] Last Admin: 08/20/24 08:25 Dose: 20 mg Gabapentin (Gabapentin 300 Mg Capsule) 600 mg PO BEDTIME [facility] Last Admin: 08/20/24 20:19 Dose: 600 mg Heparin Sodium (Porcine) (Heparin 5,000 Unit/Ml Inj 1 Ml) 0 unit IVP PRN PRN; Protocol PRN Reason: Heparin Weight Based Protocol -Subsequent Bolus Heparin Sodium/Sodium Chloride (Heparin Drip) 25,000 unit in 500 mls @ 0 mls/hr IV CONT [facility]; Protocol Last Admin: 08/21/24 05:50 Dose: 11.78 unit/kg/hr, 30 mls/hr Metoprolol Succinate (Metoprolol Succinate Er (24 Hr) 25 Mg Tablet) 12.5 mg PO BEDTIME [facility] Last Admin: 08/20/24 20:18 Dose: 12.5 mg Nitroglycerin (Nitroglycerin 0.4 Mg Sublingual Tablet) 0.4 mg SUBLINGUAL Q5M PRN PRN Reason: CHEST PAIN Ondansetron HCl (Ondansetron 2 Mg/Ml Sdv 2 Ml) 4 mg IVP Q8H PRN PRN Reason: vomiting, or N/V if npo Pantoprazole Sodium (Pantoprazole Dr 40 Mg Tablet) 40 mg PO BEDTIME [facility] Last Admin: 08/20/24 20:19 Dose: 40 mg Potassium Chloride (Potassium Chloride Er 20 Meq Tablet) 20 meq PO BEDTIME [facility] Last Admin: 08/20/24 20:19 Dose: 20 meq Trazodone HCl (Trazodone 50 Mg Tablet) 50 mg PO BEDTIME PRN PRN Reason: insomnia Last Admin: 08/20/24 20:19 Dose: 50 mg Venlafaxine HCl (Venlafaxine Er (24hr) 150 Mg Capsule) 150 mg PO BEDTIME [facility] Last Admin: 08/20/24 20:19 Dose: 150 mg Vitals/I&O/Wt Last Vital Signs Temp 97.7 F 08/21/24 07:50 Pulse 68 08/21/24 07:50 Resp 18 08/21/24 07:50 BP 128/66 08/21/24 07:50 Pulse Ox 96 08/21/24 07:50 O2 Del Method Room Air 08/21/24 07:50 08/20/24 08/21/24 08/21/24 22:59 06:59 14:59 Intake Total 940 / 1300 400 / 1700 Output Total 300 / 1750 Balance 640 / -450 400 / -50 Weight last 48 hrs Weight 278 lb 14.4 oz Weight 280 lb 12.8 oz Physical Exam 2 Narrative: GENERAL: The patient is alert and oriented times three. Not in any acute distress. Obese HEENT: No significant pallor, icterus or lymphadenopathy.Oral cavity: There are no mucous membrane lesions. NECK: Trachea appears to be central. No masses noted. No JVD or thyromegaly appreciated. RESPIRATORY: Chest is symmetrical. No intercostals muscle retraction or any accessory muscle activation. There is no chest wall tenderness. Breath sounds are heard bilaterally. No rales or rhonchi heard. No evidence of any consolidation. BREASTS: Deferred. HEART: The heart sounds are normal. No S3 or S4. No significant murmurs. No pericardial rub ABDOMEN: No vessel pulsations or distention. No tenderness. No organomegaly appreciated. Bowel sounds are normally heard. : Deferred. RECTAL: Deferred. LYMPHATIC: No lymphadenopathy noted in the neck. EXTREMITIES:1- 2+ edema both lower extremities. Features of chronic venous stasis. MUSCULOSKELETAL: No acute joint deformities or swelling SKIN: There are no significant rashes or ecchymosis NEUROPSYCHIATRIC: Patient has grade 1-2 power of the both lower extremities. Urinary Catheter Management: Suprapubic: Cath Placed During This Visit: no Reason for Continuing Indwelling Catheter: Chronic Indwelling Urinary Catheter on Admission Data 08/22/24 02:51 08/22/24 05:45 Micro: Microbiology 08/19/24 04:47 Urine Culture - Preliminary Urine,Clean Catch Gram Negative Rods A&P Assessment and plan (1) Unstable angina: Patient's symptoms are stable. INR is 1.8. Patient is on IV heparin. (2) Positive cardiac stress test: The abnormal Myocardial perfusion imaging is suggestive of multivessel coronary disease. This needs to be further evaluated by coronary angiogram. (3) GERD (gastroesophageal reflux disease): May continue on the current medications Qualifiers: Esophagitis presence: without esophagitis Qualified Code(s): K21.9 - Gastro-esophageal reflux disease without esophagitis (4) History of DVT (deep vein thrombosis): Patient is on long-term oral anticoagulation. The warfarin is on hold. INR today is 2.1. Started on IV heparin. Plan The other problems are T4 paraplegia neurogenic bladder with suprapubic catheter Status post colostomy Decubitus ulcer in the sacrum Obesity Will keep n.p.o. after midnight. IV heparin PT/INR in the morning Possible cardiac catheterization tomorrow, if the INR is less than 1.5 PDMP PDMP Reviewed: Not Reviewed Attestations 2 Medical Necessity Statement*: Patient requires continued hospital stay for close monitoring and further management Coding Level of Care Code Acute Code for Chg Fwd Diagnoses Unstable angina I20.0 Positive cardiac stress test R94.39 Gastroesophageal reflux disease without esophagitis K21.9 Esophagitis presence: without esophagitis History of DVT (deep vein thrombosis) Z86.718
[2024-08-21] MEDS: FUROsemide 20 mg Tablet PO (09:17)
[2024-08-21] MEDS: ascorbic acid 500 mg Tablet 1000 MG PO ×2 (09:17→17:43)
[2024-08-21] MEDS: aspirin 81 mg Chew Tablet PO (09:17)
[2024-08-21] MEDS: cefdinir 300 MG CAPSULE PO (09:17)
--- NOTE | 2024-08-21 10:54 | PC.SOCIAL ---
IMM Update Pg. 2 of IMM updated and reviewed with patient, who verbalized understanding. Copy provided.
--- NOTE | 2024-08-21 12:17 | P.PN_ITS ---
Subjective 2 Subjective: seen this am no acute events overnight INR till 1.81 this am Vitals/I&O/Wt Last Vital Signs Temp 97.7 F 08/21/24 11:56 Pulse 71 08/21/24 11:56 Resp 19 H 08/21/24 11:56 BP 121/45 08/21/24 11:56 Pulse Ox 97 08/21/24 11:56 O2 Del Method Room Air 08/21/24 11:56 08/20/24 08/21/24 08/21/24 22:59 06:59 14:59 Intake Total 940 / 1300 400 / 1700 Output Total 300 / 1750 Balance 640 / -450 400 / -50 Weight last 48 hrs Weight 126.507 kg Weight 127.369 kg Physical Exam 2 Narrative: General: Alert oriented x3, patient seen laying in bed appearing comfortable at this time. HEENT: Normocephalic, atraumatic, EOMI Cardio: Regular rate rhythm, normal S1-S2, patient denies chest pain at this time. Respiratory: Clear to auscultation bilaterally no wheezes no rhonchi appreciated at this time. GI: Abdomen soft, nontender, nondistended, bowel sounds +Colostomy is intact to the left lower quadrant. Behavior: Appropriate and cooperative Extremities: Chronic venous stasis changes. Urinary Catheter Management: Suprapubic: Cath Placed During This Visit: no Reason for Continuing Indwelling Catheter: Chronic Indwelling Urinary Catheter on Admission Data 08/21/24 00:49 08/21/24 00:49 Micro: Microbiology 08/19/24 04:47 Urine Culture - Preliminary Urine,Clean Catch Gram Negative Rods A&P Assessment and plan (1) Unstable angina: With increasing frequency of chest pain episodes as described at rest and with exertion. Baseline activity level is limited to transfers. Cardiac stress testing done on August 05 in the outpatient setting showed no Lexiscan induced symptoms or rhythm changes, normal blood pressure and heart rate response but myocardial perfusion scan showed large area of moderate to severe ischemia in the basal to distal and basal to mid inferior lateral wall of the left ventricle suggestive of possible lesion in the left circumflex. Also noted was a medium sized area of moderate to severe ischemia in the distal LAD and apex of the left ventricle. Has received aspirin. Is currently chest pain-free. (2) Chronic anticoagulation: On warfarin due to history of DVT and PE in 2004. Takes warfarin at bedtime so last dose was on 08/17/2024. Current INR is therapeutic at 3. 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 Current dressing management includes drawtex [place] conductive wound dressing in the wound with gauze 4 x 4 covered with ABD pad and secured with 3M Medipore tape twice daily. Last debridement on August 12. White count is normal. Qualifiers: Encounter type: subsequent encounter Qualified Code(s): S31.000D - Unspecified open wound of lower back and pelvis without penetration into retroperitoneum, subsequent encounter (4) Chronic cystitis: Chronically on cefdinir for prophylaxis. Also continued taking vitamin C after stopping mirabrgron. No recent urinary symptoms. 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 Wheelchair dependent, able to use transfer aids, live alone with family support. On gabapentin and baclofen at bedtime. (6) SAVAGE on CPAP: With sleep (7) History of DVT (deep vein thrombosis): And pulmonary embolism in 2007, had IVC filter placed, on chronic warfarin. CTA of the chest today showed normal pulmonary arteries. (8) Lymphedema: Chronically on furosemide and potassium, has used lymphedema wraps in past, currently doing well, right leg always larger than left, known venous stasis changes (9) Depression: Chronically on venlafaxine, has trazodone for sleep. Qualifiers: Depression Type: other depression Qualified Code(s): F32.89 - Other specified depressive episodes (10) GERD (gastroesophageal reflux disease): Chronically on omeprazole. Qualifiers: Esophagitis presence: without esophagitis Qualified Code(s): K21.9 - Gastro-esophageal reflux disease without esophagitis (11) Suprapubic catheter: Not due for change currently. No change in urine output. (12) Colostomy in place: No recent change in ostomy output, daughter will bring in her bags. Takes docusate at bedtime. (13) BMI 50.0-59.9, adult: Not know to have associated OHS, but can get hypoxic with illness and has as needed oxygen at home, most recent need 06/2024 Plan Widened mediastinum on chest x-ray but CTA of the chest without evidence of dissection or aneurysm Elevated platelets, normal end of June at 320 Mild transaminase elevation and mild hepatomegaly likely related to fatty liver disease Respiratory viral panel checked and negative 08/18/2024 Inpatient admission Cardiology consultation for anticipated catheterization Hold warfarin, daily INR with bridging therapy as needed Aspirin, beta-blockade, nitrates monitoring blood pressures closely Continue serial cardiac enzymes and EKGs Telemetry monitoring Echocardiogram though may be limited windows due to body habitus Check lipid panel and A1c for risk stratification Wound care for sacral area, frequent turning Continue cefdinir prophylaxis and vitamin C Check UA Continue home baclofen and gabapentin Cpap with sleep Supplemental oxygen if needed Monitor lymphedema and stasis changes Continue home venlafaxine and trazodone Continue home omeprazole Routine chronic catheter management, will not be removed this stay, will change to bedside bag as needed Routine colostomy care VTE prophylaxis: on warfarin, therapeutic at admit, being held for planned procedure,with plan to restart after procedure, bridging as needed, lymphedema in lower extremities limits ability to effectively use SCDs GI Prophylaxis: PPI chronically Antibiotics: cefdinir chronically for prophylaxis Pending studies: UA, 6 hr troponin, am lipid panel and A1c Telemetry: ordered due to presenting complaint Mahajan: chronic suprapubic catherter present on admisison Line(s): peripheral IVs Disposition plan: Home with outpatient follow up to cardiology 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 Already has appointments scheduled in September with [facility]. Code Status: Full Code Supportive care otherwise Findings, concerns and plans were discussed with patient and she was given an opportunity to ask questions. We discussed cardiac cardiac catheterization procedure, plan for cardiology consultation and medication management plan around anticoagulation. 08/19/2024 Hold warfarin at this time. Continue aspirin beta-zara nitrates Echo pending Lipid panel A1c pending Continue wound care as per wound care instructions Continue cefdinir Continue baclofen and gabapentin Continue venlafaxine trazodone N.p.o. midnight for potential angiogram in a.m. Check CBC CMP INR in AM. Await urine culture. 08/20/2024 -Continue cefdinir Called warfarin at this time Continue aspirin Plavix beta-zaar Lipid panel resulted. Hemoglobin A1c 5.7. ? Continue home medications ? And be admitted for potential angiogram in a.m. Urine culture grows gram-negative rods. Continue heparin drip Cardiology consulted. Appreciate recommendations 08/21/2024 -Continue cefdinir hold warfarin at this time Continue aspirin Plavix beta-zara Lipid panel resulted. Hemoglobin A1c 5.7. ? Continue home medications ? And be admitted for potential angiogram in a.m. Urine culture grows gram-negative rods. Continue heparin drip Cardiology consulted. Appreciate recommendations awaiting INR to come down < 1.5 plan for coronary angiogram in AM PDMP PDMP Reviewed: Not Reviewed Attestations 2 Medical Necessity Statement*: Plan for coronary angiogram in a.m. Diagnoses Unstable angina I20.0 Chronic anticoagulation Z79.01 Wound of sacral region, subsequent encounter S31.000D Encounter type: subsequent encounter Chronic cystitis N30.20 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 SAVAGE on CPAP G47.33 History of DVT (deep vein thrombosis) Z86.718 Lymphedema I89.0 Other depression F32.89 Depression Type: other depression Gastroesophageal reflux disease without esophagitis K21.9 Esophagitis presence: without esophagitis Suprapubic catheter Z93.[address] Z93.3 BMI 50.0-59.9, adult Z68.43
--- NOTE | 2024-08-21 13:43 | XR_ITS ---
WS: [id number] XR chest 1V portable [id number] REASON FOR EXAM: Post PICC insertion FINDINGS: Right arm PICC line has been placed. The tip of the catheter is in the distal SVC in good position for use. PICC line position was discussed with the radiology assistant over the phone at 2:30 p.m. 08/21/2024. Again is noted the widened appearing mediastinum as was described on the previous examination 08/18/2024. (Presumably the mediastinal contour is due to a a prominent innominate vein and prominent SVC and right atrium as seen on the CT scan of the 08/18/2024.) XR/XR chest 1V portable [id number] IMPRESSION: Widened mediastinum as above. PICC line placement with the tip in proper position for use.
--- NOTE | 2024-08-21 14:54 | PICC.NOTE ---
Double lumen PICC placed to right basilic vein. Referred to vascular access nurse for PICC placement due to poor access and heparin drip. Risks and benefits discussed and informed consent obtained from pt. Right arm assessed with right basilic vein measuring 3.5 mm, straight, and apparent best choice for placement. Using sterile technique and MST, right basilic vein accessed x 1 stick. Mid-arm circumference measured 10 cm from right AC 49 cm. Trimmed cath 48 cm with 2 cm external length noted. CXR shows tip in distal SVC, in good position for use per radiologist. Line secured with stat-lock. Insertion site covered with Biopatch, Secureport IV, and TSM. Report given to bedside nurse, NISHANT Casey.
[2024-08-21 17:05] LABS: Partial Thromboplastin Time 94.6 SECONDS (23.9-36.7)
[2024-08-21] MEDS: pantoprazole DR 40 mg Tablet PO (21:26)
[2024-08-21] MEDS: potassium chloride ER 20 mEq Tablet PO (21:26)
[2024-08-21] MEDS: baclofen 10 mg Tablet 20 MG PO (21:26)
[2024-08-21] MEDS: gabapentin 300 mg Capsule 600 MG PO (21:26)
[2024-08-21] MEDS: atorvastatin 40 mg Tablet PO (21:27)
[2024-08-21] MEDS: metoprolol succinate ER (24 HR) 25 mg Tablet 12.5 MG PO (21:27)
[2024-08-21] MEDS: docusate sodium 100 mg Capsule PO (21:27)
[2024-08-21] MEDS: venlafaxine ER (24HR) 150 mg Capsule PO (21:27)
[2024-08-21] MEDS: trazodone 50 mg Tablet PO (21:36)
[2024-08-22] VITALS (54 sets, daily range): BP systolic 98–159; BP diastolic 62–95; PULSE 55–88; RESP 8–26; TEMP 36.5–36.7; O2SAT 76–97
[2024-08-22] MEDS: heparin drip 25,000 UNIT/500 ML PREMIX 25 UNIT IV (00:11)
[2024-08-22 00:48] LABS: Partial Thromboplastin Time 84.9 SECONDS (23.9-36.7)
[2024-08-22 04:07] LABS: Basophils % 0.5 %; Eosinophils # 0.3 10^3/uL (0.0-0.8); Eosinophils % 5.4 %; Hematocrit 41.9 % (36-47); Lymphocytes # 1.6 10^3/uL (0.8-4.8); Lymphocytes % 25.5 %; Mean Corpuscular HGB Conc 31.3 g/dL (30-55); Mean Corpuscular Hemoglobin 29.6 pg (27-33); Mean Corpuscular Volume 94.6 fl (85-98); Mean Platelet Volume 10.9 fL (7.4-10.4); Monocytes # 0.5 10^3/uL (0.2-0.9); Monocytes % 8.6 %; Neutrophils # 3.77 10^3/uL (1.8-7.7); Neutrophils % 59.7 %; Nucleated Red Blood Cells % 0 %; Platelet Count 398 10^3/cmm (157-399); Red Blood Count 4.43 10^6/uL (3.85-5.65); Red Cell Distribution Width 13.9 % (12.1-15.1); White Blood Count 6.31 10^3/uL (3.29-11.43)
[2024-08-22 04:09] LABS: INR 1.26 (0.8-1.2)
[2024-08-22 06:05] LABS: Alanine Aminotransferase 33 U/L (0-33); Albumin Level 3.4 g/dL (3.5-5.2); Alkaline Phosphatase 90 U/L (35-105); Anion Gap 15.1 (5-19); Aspartate Amino Transferase 25 U/L (0-32); Blood Urea Nitrogen 11 mg/dL (6-20); Carbon Dioxide 28 mmol/L (22-29); Chloride 100 mmol/L (98-107); Creatinine Clr Calc Pharmacy 102.2835; Globulin 3.5 g/dL (1.3-4.6); Glomerular Filtration Rate 74.2 mL/min (90-130); Glucose 107 mg/dL (65-115); Magnesium 1.7 mg/dL (1.7-2.3); Osmolality Calculated 288 mOsm/kg (285-295); Potassium 4.1 mmol/L (3.5-5.1); Sodium 139 mmol/L (136-145); Total Bilirubin 0.3 mg/dL (0.15-1.2); Total Protein 6.9 g/dL (6.6-8.7)
--- NOTE | 2024-08-22 07:22 | PC.NURSE ---
Patient INR was 1.29. Bony willson notified about cath procedure to be 10:[address] Moser was then notified by phone.
[2024-08-22 08:21] LABS: Partial Thromboplastin Time 86.6 SECONDS (23.9-36.7)
[2024-08-22] MEDS: aspirin 81 mg Chew Tablet PO (08:46)
[2024-08-22] MEDS: ascorbic acid 500 mg Tablet 1000 MG PO ×2 (08:46→17:36)
[2024-08-22] MEDS: cefdinir 300 MG CAPSULE PO (08:46)
[2024-08-22] MEDS: FUROsemide 20 mg Tablet PO (08:47)
--- NOTE | 2024-08-22 09:43 | XACV_ITS ---
Exam Room: 2 Ht: 160 cm Wt: 127 kg BSA: 2.46 m2 Gender: Female : 1970 Any Known Allergies: Other Exam Priority: Routine Procedure(s): Procedure Description: Diagnostic procedure Procedure Description: Left Heart Catheterization Procedure Description: Left ventriculography Procedure Description: Miscellaneous Procedure Description: Angio-Seal Procedure Description: Coronary Angiography Ehsan VASQUEZ; Diagnostic Cath Status: Urgent Diagnostic Findings * Left main is a medium caliber elongated vessel with no significant stenotic lesions. * The left anterior descending artery is an elongated vessel which appears to wraparound the LV apex minimally. The artery appears to have paucity of diagonal and septal perforators.. * The left circumflex artery is a medium caliber vessel which gives off some anterolateral and posterolateral branches. * The right coronary artery is a small to medium caliber vessel with no significant stenotic lesions. Conclusions 1. 54-year-old white female with a multiple risk factors of coronary disease, presenting with increasing episodes of chest pain. She had a Myocardial perfusion imaging prior to the hospital admission which revealed multiple areas of fixed and reversible defects, suggestive of a three-vessel coronary disease. For further evaluation of her coronary status, cardiac catheterization was recommended.. 2. The patient underwent left heart catheterization with left and right coronary angiogram and LV gram. The findings are as follows. No significant obstructive coronary disease. There is slight i anatomical variation in the left and descending artery and circumflex artery. No significant obstructive coronary artery disease. LVEDP of 8 mmHg. LV ejection fraction 50 to 55%.. Diagnostic RX Recommendation: medical therapy and/or counseling LV EDP: 8 mmHg Ventriculography Ejection Fraction: 50.0 % Left Ventriculography Findings: * The LV gram was performed the CUBA flexion. LV cavity appeared to be normal size. There was mild hypokinesis of anteroapical region. The overall LV ejection fraction was 50 to 55%. LVEDP was 8 mmHg. Pressures Phase:Rest AO : 121 / 76 ( 96 ) @ 10:50:00 AM 116 / 76 ( 95 ) @ 10:53:00 AM 127 / 72 ( 94 ) @ 10:55:00 AM 115 / 59 ( 83 ) @ 11:00:00 AM 114 / 57 ( 83 ) @ 11:00:00 AM LV : 128 / -15 / 8 @ 10:59:00 AM 122 / -13 / 9 @ 11:00:00 AM 120 / -12 / 8 @ 11:00:00 AM Valves Phase:DefaultPhase AV : 5.0 @ 11:12:57 AM AV Mean Gradient: 10.0 @ 11:12:57 AM Clinical Evaluation EBL: 5mL-10mL Procedural Details Pre-Procedure Time Out. Identified patient by full name and date of as verbalized by the patient/guarantor. Does the consent match the physician's order: Yes. Accurate & Complete Informed Consent: Yes. Inpatient/Outpatient History & Physical on Chart: Yes. If H&P is completed, is and addenduem needed: No; If yes, is the addendum complete: N/A. Visualize and Verify Site with Patient/Guarantor: N/A. Relevant Radiology Images available: Yes. Pre-op teaching completed and patient verbalized understanding. The risks, benefits, and alternatives of sedation and/or procedure were discussed by physician. The patient agrees to continue. Procedure started. [facility] Clinical Fraility Score: 5: Mildly Frail. 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 Chest Pain Symptom Assessment: Atypical Angina. Correct patient, site and procedure confirmed by cath team. Current diagnosis: Chest Pain. PERRLA. Strong, equal hand enamel sprayer bilaterally. Lungs clear x 5 lobes. Patient arrived to the dental lab technician with a PICC line. IV Fluids: 0.9% NaCl at KVO. 0 mL infused prior to dental lab technician. Oxygen started at 2liters/min via nasal canula. right groin was prepped with chloroprep then draped in the usual sterile fashion. right radial was prepped with chloroprep then draped in the usual sterile fashion. Current Diagnosis : Chest Pain. Baseline sample Acquired. HR: 65 BPM. Physician arrived. Physician scrubbed in. Immediate Pre-Procedure Time Out. Correct Patient: Yes; Correct Procedure: Yes; Correct Site: Yes; Correct Patient Position: Yes; Correct Supplies: Yes; Dried Flammable Prep: Yes; Blood Products Available: N/A;. Lidocaine 1% infiltrated to the right groin. Arterial access obtained with micropuncture set. A 5 greek JL4 catheter in over wire. ACT drawn. Results 164 seconds. Therapeutic limits - pre-heparin administration 90-150 seconds and monitoring heparin during a vascular procedure >250 seconds. Multiple views taken of left coronary artery. Catheter removed over the exchange wire. A 5 greek JR4 catheter in over wire. Multiple views taken of right coronary artery. Catheter removed over the standard wire. A 6 greek Angled Pig catheter in over wire. EDP Sample taken: LV 128/-16,8; HR: 69 BPM; SpO2: Off%. LV gram performed in CUBA @ 10 mL/second for a total of 30 mL. EDP Sample taken: LV 122/-14,9; HR: 71 BPM; SpO2: 81%. Pullback taken: LV 120/-13,8; AO 115/59(83); Mean: 10mmHg, Peak to Peak: 5mmHg, SEP: 22sec/min; HR: 73 BPM; SpO2: Off%. Catheter removed over the standard wire. A Right femoral angiogram was performed to determine safe placement of closure device. Dr. Moser scrubbed out. Dr. Min scrubbed in to perform closure device. Lidocaine 1% infiltrated to the right groin. A Angio-Seal VIP ([facility]) was successful obtaining hemostatsis at the Right Femoral artery insertion site. Post Procedure: Pulses reassessed and unchanged. PERRLA. Strong, equal hand enamel sprayer bilaterally. No VTE prophylaxis required. Medication's Wasted: Other = Fentanyl 50 mcg. Total IV fluids: 40 mL. Post-op diagnosis: Non-obstructive CAD. Complications: None. Estimated blood loss: 5mL-10mL. Responsiveness - Normal response to verbal stimuli; alert and oriented, PERRLA. Airway - Unaffected, no intervention required; spontaneous ventilation. Circulation: W/N/L, pulses unchanged. Nausea/Vomiting: No. Procedure completed. Vital chart was stopped. Patient transferred by bed to 1st floor. Access Site Site: Right Femoral artery Sheath Size: 6 Fr Hemostasis Method: Angio-Seal VIP ([facility]) Hemostasis Success: Successful Procedure Medications Start: 10:35 AM Stop: 10:35 AM Medication: Versed 1 mg and Fentanyl 25 mcg Amount: 1 Route: I.V. Start: 10:41 AM Stop: 10:41 AM Medication: Versed Amount: 1 mg Route: I.V. Start: 10:55 AM Stop: 10:55 AM Medication: Fentanyl Amount: 25 mcg Route: I.V. Start: 10:56 AM Stop: 10:56 AM Medication: Versed Amount: 1 mg Route: I.V. I, the attending physician, have reviewed and verified all procedure medications. Yes, all medications given per verbal order History/Risk Factors Hypertension: No Dyslipidemia: No Peripheral Arterial Disease (PAD): Yes Myocardial Infarction (HI): No Obesity: Yes Renal Disease: No Tobacco Use: Never Prior Interventions PCI: No CABG: No Valve Surgery: No Report Signatures Finalized by Dr Pipo Moser MD [facility] on 08/22/2024 12:38 PM
[2024-08-22] MEDS: diphenhydrAMINE 50 mg Capsule PO (09:49)
--- NOTE | 2024-08-22 10:02 | PM.PN ---
Subjective Subjective: The patient is feeling okay. No chest pain today. INR is 1.2. Medications: Medication Review Details: Current Medications Acetaminophen (Acetaminophen 325 Mg Tablet) 650 mg PO Q6H PRN PRN Reason: Mild/Mod Pain Or Temp >/= 101 Albuterol Sulfate (Albuterol 2.5 Mg/3 Ml Neb) 2.5 mg INHALATION Q6H.RESP PRN PRN Reason: SHORTNESS OF BREATH Ascorbic Acid (Ascorbic Acid 500 Mg Tablet) 1,000 mg PO BID [facility] Last Admin: 08/22/24 08:46 Dose: 1,000 mg Aspirin (Aspirin 81 Mg Chew Tablet) 81 mg PO DAILY [facility] Last Admin: 08/22/24 08:46 Dose: 81 mg Atorvastatin Calcium (Atorvastatin 40 Mg Tablet) 40 mg PO BEDTIME [facility] Last Admin: 08/21/24 21:27 Dose: 40 mg Baclofen (Baclofen 10 Mg Tablet) 20 mg PO BEDTIME [facility] Last Admin: 08/21/24 21:26 Dose: 20 mg Bisacodyl (Bisacodyl 5 Mg Tablet) 10 mg PO DAILY PRN; Protocol PRN Reason: Constipation (see protocol) Cefdinir (Cefdinir 300 Mg Capsule) 300 mg PO DAILY [facility]; Protocol Last Admin: 08/22/24 08:46 Dose: 300 mg Docusate Sodium (Docusate Sodium 100 Mg Capsule) 100 mg PO BEDTIME [facility] Last Admin: 08/21/24 21:27 Dose: 100 mg Furosemide (Furosemide 20 Mg Tablet) 20 mg PO DAILY@0800 [facility] Last Admin: 08/22/24 08:47 Dose: 20 mg Gabapentin (Gabapentin 300 Mg Capsule) 600 mg PO BEDTIME [facility] Last Admin: 08/21/24 21:26 Dose: 600 mg Heparin Sodium (Porcine) (Heparin 5,000 Unit/Ml Inj 1 Ml) 0 unit IVP PRN PRN; Protocol PRN Reason: Heparin Weight Based Protocol -Subsequent Bolus Heparin Sodium/Sodium Chloride (Heparin Drip) 25,000 unit in 500 mls @ 0 mls/hr IV CONT [facility]; Protocol Last Titration: 08/22/24 01:53 Dose: 8.64 unit/kg/hr, 22 mls/hr Metoprolol Succinate (Metoprolol Succinate Er (24 Hr) 25 Mg Tablet) 12.5 mg PO BEDTIME [facility]LOS Last Admin: 08/21/24 21:27 Dose: 12.5 mg Nitroglycerin (Nitroglycerin 0.4 Mg Sublingual Tablet) 0.4 mg SUBLINGUAL Q5M PRN PRN Reason: CHEST PAIN Ondansetron HCl (Ondansetron 2 Mg/Ml Sdv 2 Ml) 4 mg IVP Q8H PRN PRN Reason: vomiting, or N/V if npo Pantoprazole Sodium (Pantoprazole Dr 40 Mg Tablet) 40 mg PO BEDTIME [facility] Last Admin: 08/21/24 21:26 Dose: 40 mg Potassium Chloride (Potassium Chloride Er 20 Meq Tablet) 20 meq PO BEDTIME [facility] Last Admin: 08/21/24 21:26 Dose: 20 meq Trazodone HCl (Trazodone 50 Mg Tablet) 50 mg PO BEDTIME PRN PRN Reason: insomnia Last Admin: 08/21/24 21:36 Dose: 50 mg Venlafaxine HCl (Venlafaxine Er (24hr) 150 Mg Capsule) 150 mg PO BEDTIME [facility] Last Admin: 08/21/24 21:27 Dose: 150 mg Vitals/I&O/Wt Last Vital Signs Temp 97.7 F 08/22/24 08:00 Pulse 64 08/22/24 08:02 Resp 18 08/22/24 08:02 BP 111/66 08/22/24 08:00 Pulse Ox 95 08/22/24 08:02 O2 Del Method Room Air 08/22/24 08:02 08/21/24 08/22/24 08/22/24 22:59 06:59 14:59 Intake Total 959 / 959 183.5 / 1142.5 Output Total 1550 / 3000 600 / 3600 Balance -591 / -2041 -416.5 / -2457.5 Weight last 48 hrs Weight 281 lb 8 oz Weight 278 lb 14.4 oz Physical Exam Narrative: GENERAL: The patient is alert and oriented times three. Not in any acute distress. Obese HEENT: No significant pallor, icterus or lymphadenopathy.Oral cavity: There are no mucous membrane lesions. NECK: Trachea appears to be central. No masses noted. No JVD or thyromegaly appreciated. RESPIRATORY: Chest is symmetrical. No intercostals muscle retraction or any accessory muscle activation. There is no chest wall tenderness. Breath sounds are heard bilaterally. No rales or rhonchi heard. No evidence of any consolidation. BREASTS: Deferred. HEART: The heart sounds are normal. No S3 or S4. No significant murmurs. No pericardial rub ABDOMEN: No vessel pulsations or distention. No tenderness. No organomegaly appreciated. Bowel sounds are normally heard. : Deferred. RECTAL: Deferred. LYMPHATIC: No lymphadenopathy noted in the neck. EXTREMITIES:1- 2+ edema both lower extremities. Features of chronic venous stasis. MUSCULOSKELETAL: No acute joint deformities or swelling SKIN: There are no significant rashes or ecchymosis NEUROPSYCHIATRIC: Patient has grade 1-2 power of the both lower extremities. Urinary Catheter Management: Suprapubic: Cath Placed During This Visit: no Reason for Continuing Indwelling Catheter: Chronic Indwelling Urinary Catheter on Admission Data 08/22/24 02:51 08/22/24 05:45 Other Labs: Laboratory Last Values WBC 6.31 10^3/uL (3.29-11.43) 08/22/24 02:51 RBC 4.43 10^6/uL (3.85-5.65) 08/22/24 02:51 Hgb 13.10 g/dL (11.27-16.99) 08/22/24 02:51 Hct 41.9 % (36-47) 08/22/24 02:51 MCV 94.6 fl (85-98) 08/22/24 02:51 MCH 29.6 pg (27-33) 08/22/24 02:51 MCHC 31.3 g/dL (30-55) 08/22/24 02:51 RDW 13.9 % (12.1-15.1) 08/22/24 02:51 Plt Count 398 10^3/cmm (157-399) 08/22/24 02:51 MPV 10.9 fL (7.4-10.4) H 08/22/24 02:51 Neut % (Auto) 59.7 % 08/22/24 02:51 Lymph % (Auto) 25.5 % 08/22/24 02:51 [place] % (Auto) 8.6 % 08/22/24 02:51 Eos % (Auto) 5.4 % 08/22/24 02:51 Baso % (Auto) 0.5 % 08/22/24 02:51 Neut # (Auto) 3.77 10^3/uL (1.8-7.7) 08/22/24 02:51 Lymph # (Auto) 1.6 10^3/uL (0.8-4.8) 08/22/24 02:51 [place] # (Auto) 0.5 10^3/uL (0.2-0.9) 08/22/24 02:51 Eos # (Auto) 0.3 10^3/uL (0.0-0.8) 08/22/24 02:51 Baso # (Auto) 0.0 10^3/uL (0.0-0.1) 08/22/24 02:51 Nucleated RBC % (auto) 0 % 08/22/24 02:51 Nucleated RBCs # 0.0 /100WBC 08/22/24 02:51 PT 16.70 SECONDS (12.1-14.9) H 08/22/24 02:51 INR 1.26 (0.8-1.2) H 08/22/24 02:51 APTT 86.6 SECONDS (23.9-36.7) H 08/22/24 07:54 Sodium 139 mmol/L (136-145) 08/22/24 05:45 Potassium 4.1 mmol/L (3.5-5.1) 08/22/24 05:45 Chloride 100 mmol/L (98-107) 08/22/24 05:45 Carbon Dioxide 28 mmol/L (22-29) 08/22/24 05:45 Anion Gap 15.1 (5-19) 08/22/24 05:45 BUN 11 mg/dL (6-20) 08/22/24 05:45 Creatinine 0.8 mg/dL (0.5-0.9) 08/22/24 05:45 GFR Calculation 74.2 mL/min (90-130) L 08/22/24 05:45 Glucose 107 mg/dL (65-115) 08/22/24 05:45 Estimat Average Glucose 117 08/19/24 04:00 Hemoglobin A1c 5.7 % (4.0-6.0) 08/19/24 04:00 Calculated Osmolality 288 mOsm/kg (285-295) 08/22/24 05:45 Calcium 9.0 mg/dL (8.5-10.5) 08/22/24 05:45 Phosphorus 3.5 mg/dL (2.5-4.5) 08/19/24 04:00 Magnesium 1.7 mg/dL (1.7-2.3) 08/22/24 05:45 Total Bilirubin 0.3 mg/dL (0.15-1.2) 08/22/24 05:45 AST 25 U/L (0-32) 08/22/24 05:45 ALT 33 U/L (0-33) 08/22/24 05:45 Alkaline Phosphatase 90 U/L (35-105) 08/22/24 05:45 Troponin T Baseline 20 ng/L (0-10) H 08/18/24 08:58 Troponin T 120 Minute 20.21 ng/L (0-10) H 08/18/24 11:30 Delta Troponin T 0.21 ABS# (0-10) 08/18/24 11:30 Troponin T Hi Sens 6Hr 20.39 ng/L (0-10) H 08/18/24 14:59 Troponin T Hi Sens 6Hr Delta 0.39 ng/L (0-12) 08/18/24 14:59 Total Protein 6.9 g/dL (6.6-8.7) 08/22/24 05:45 Albumin 3.4 g/dL (3.5-5.2) L 08/22/24 05:45 Globulin 3.5 g/dL (1.3-4.6) 08/22/24 05:45 Triglycerides 121 mg/dL (0-150) 08/19/24 04:00 Cholesterol 115 mg/dL (0-200) 08/19/24 04:00 LDL Cholesterol, Calc 63 mg/dL (50-129) 08/19/24 04:00 HDL Cholesterol 28 mg/dL (60-100) L 08/19/24 04:00 LDL/HDL Ratio 2.25 RATIO (0.00-3.22) 08/19/24 04:00 Cholesterol/HDL Ratio 4.11 mg/dL (0.0-4.40) 08/19/24 04:00 Urine Color Yellow (Yellow) 08/19/24 04:47 Urine Appearance Turbid (CLEAR) A 08/19/24 04:47 Urine pH 5.5 (5-7) 08/19/24 04:47 Ur Specific [place] 1.057 (1.005-1.030) H 08/19/24 04:47 Urine Protein 1+ (Negative) A 08/19/24 04:47 Urine Glucose (UA) Negative (Normal) 08/19/24 04:47 Urine Ketones Trace (Negative) 08/19/24 04:47 Urine Blood 2+ (Negative) A 08/19/24 04:47 Urine Nitrate Positive (Negative) A 08/19/24 04:47 Urine Bilirubin Negative (Negative) 08/19/24 04:47 Urine Urobilinogen 1.0 mg/dL (Negative) 08/19/24 04:47 Ur Leukocyte Esterase Trace (Negative) A 08/19/24 04:47 Urine RBC 51-100 /hpf (0-2) H 08/19/24 04:47 Urine WBC 51-100 /hpf (0-5) H 08/19/24 04:47 Ur Squamous Epith Cells 0-5 /hpf (0-5) 08/19/24 04:47 Calcium Oxalate Crystal 10-15 /hpf H 08/19/24 04:47 Amorphous Sediment Not Reportable 08/19/24 04:47 Urine Bacteria 4+ /hpf (NONE) H 08/19/24 04:47 Hyaline Casts 7.01 /lpf 08/19/24 04:47 Urine Mucus 2+ /hpf 08/19/24 04:47 Coronavirus (PCR) Negative (Negative) 08/18/24 09:49 Influenza A (PCR) Negative (Negative) 08/18/24 09:49 Influenza Type B (PCR) Negative (Negative) 08/18/24 09:49 RSV (PCR) Negative (Negative) 08/18/24 09:49 A&P Assessment and plan (1) Unstable angina: Currently stable. We may go ahead and do the cardiac catheterization today. (2) Positive cardiac stress test: The abnormal Myocardial perfusion imaging is suggestive of multivessel coronary disease. This needs to be further evaluated by coronary angiogram. (3) GERD (gastroesophageal reflux disease): May continue on the current medications Qualifiers: Esophagitis presence: without esophagitis Qualified Code(s): K21.9 - Gastro-esophageal reflux disease without esophagitis (4) History of DVT (deep vein thrombosis): Patient is on long-term oral anticoagulation. The warfarin is on hold. INR today is 2.1. Started on IV heparin. Plan The other problems are T4 paraplegia neurogenic bladder with suprapubic catheter Status post colostomy Decubitus ulcer in the sacrum Obesity Will go ahead and do the cardiac catheterization today. The risk of bleeding, hematoma, vascular injury, myocardial infarction, myocardial perforation, malignant cardiac arrhythmias ,CVA, renal failure and other concomitant complications were explained in detail. Patient and the family understood this well and consented to proceed. Patient and the family also were told that if she requires a coronary artery bypass surgery, we may not be able to do it during this hospital and that she may need to be transferred to another facility. Patient and the family are agreeable for this. Based on the angiogram findings, further recommendations will be made PDMP PDMP Reviewed: Not Reviewed Attestations Medical Necessity Statement*: Patient requires continued hospital stay for close monitoring and further management Coding Level of Care Code 97951 Diagnoses Unstable angina I20.0 Positive cardiac stress test R94.39 Gastroesophageal reflux disease without esophagitis K21.9 Esophagitis presence: without esophagitis History of DVT (deep vein thrombosis) Z86.718
--- NOTE | 2024-08-22 10:34 | W.PM.OPSUD ---
Surgery/Procedure H&P Update DATE OF PROCEDURE: August 22, 2024 DATE H&P PERFORMED: 08/19/24 H&P UPDATE INFORMATION: I have reviewed H&P completed within last 30 days, I have examined patient prior to procedure and No changes to prior documentation PREOP DIAGNOSIS: ASHD PRIMARY INDICATION FOR PROCEDURE: Unstable angina/abnormal myocardial perfusion imaging PLANNED PROCEDURE: Left heart catheterization with coronary angiogram and possible PCI PATIENT REASSESSED PRIOR TO SEDATION, WITH NO CHANGE NOTED: Yes PHYSICAL EXAM: alert, oriented x 3, clear to auscultation bilaterally and regular rate & rhythm AIRWAY EVAL/ANESTHESIA PLAN: normal airway, see other exam findings, Monitored Anesthesia, Local Anesthesia, Risks, benefits & alternatives of sedation and/or procedure discussed and Patient agrees to continue as planned
--- NOTE | 2024-08-22 15:15 | PM.PN ---
Subjective Subjective: seen today plan for cardiac cath Vitals/I&O/Wt Last Vital Signs Temp 97.7 F 08/22/24 08:00 Pulse 67 08/22/24 11:32 Resp 21 H 08/22/24 11:32 BP 139/84 08/22/24 11:32 Pulse Ox 93 08/22/24 11:32 O2 Del Method Room Air 08/22/24 11:32 08/22/24 08/22/24 08/22/24 06:59 14:59 22:59 Intake Total 183.5 / 1142.5 Output Total 600 / 3600 Balance -416.5 / -2457.5 Weight last 48 hrs Weight 127.686 kg Weight 126.507 kg Physical Exam Narrative: General: Alert oriented x3, Cardio: Regular rate rhythm, normal S1-S2, Respiratory: Clear to auscultation bilaterally no wheezes no rhonchi appreciated at this time. GI: Abdomen soft, nontender, nondistended, bowel sounds +Colostomy is intact to the left lower quadrant. Extremities: Chronic venous stasis changes. Urinary Catheter Management: Suprapubic: Cath Placed During This Visit: no Reason for Continuing Indwelling Catheter: Chronic Indwelling Urinary Catheter on Admission Data 08/22/24 02:51 08/22/24 05:45 A&P Assessment and plan (1) Unstable angina: With increasing frequency of chest pain episodes as described at rest and with exertion. Baseline activity level is limited to transfers. Cardiac stress testing done on August 05 in the outpatient setting showed no Lexiscan induced symptoms or rhythm changes, normal blood pressure and heart rate response but myocardial perfusion scan showed large area of moderate to severe ischemia in the basal to distal and basal to mid inferior lateral wall of the left ventricle suggestive of possible lesion in the left circumflex. Also noted was a medium sized area of moderate to severe ischemia in the distal LAD and apex of the left ventricle. Has received aspirin. Is currently chest pain-free. (2) Chronic anticoagulation: On warfarin due to history of DVT and PE in 2004. Takes warfarin at bedtime so last dose was on 08/17/2024. Current INR is therapeutic at 3. 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 Current dressing management includes drawtex [place] conductive wound dressing in the wound with gauze 4 x 4 covered with ABD pad and secured with [facility] tape twice daily. Last debridement on August 12. White count is normal. Qualifiers: Encounter type: subsequent encounter Qualified Code(s): S31.000D - Unspecified open wound of lower back and pelvis without penetration into retroperitoneum, subsequent encounter (4) Chronic cystitis: Chronically on cefdinir for prophylaxis. Also continued taking vitamin C after stopping mirabrgron. No recent urinary symptoms. 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 Wheelchair dependent, able to use transfer aids, live alone with family support. On gabapentin and baclofen at bedtime. (6) SAVAGE on CPAP: With sleep (7) History of DVT (deep vein thrombosis): And pulmonary embolism in 2007, had IVC filter placed, on chronic warfarin. CTA of the chest today showed normal pulmonary arteries. (8) Lymphedema: Chronically on furosemide and potassium, has used lymphedema wraps in past, currently doing well, right leg always larger than left, known venous stasis changes (9) Depression: Chronically on venlafaxine, has trazodone for sleep. Qualifiers: Depression Type: other depression Qualified Code(s): F32.89 - Other specified depressive episodes (10) GERD (gastroesophageal reflux disease): Chronically on omeprazole. Qualifiers: Esophagitis presence: without esophagitis Qualified Code(s): K21.9 - Gastro-esophageal reflux disease without esophagitis (11) Suprapubic catheter: Not due for change currently. No change in urine output. (12) Colostomy in place: No recent change in ostomy output, daughter will bring in her bags. Takes docusate at bedtime. (13) BMI 50.0-59.9, adult: Not know to have associated OHS, but can get hypoxic with illness and has as needed oxygen at home, most recent need 06/2024 Plan Widened mediastinum on chest x-ray but CTA of the chest without evidence of dissection or aneurysm Elevated platelets, normal end of June at 320 Mild transaminase elevation and mild hepatomegaly likely related to fatty liver disease Respiratory viral panel checked and negative 08/18/2024 Inpatient admission Cardiology consultation for anticipated catheterization Hold warfarin, daily INR with bridging therapy as needed Aspirin, beta-blockade, nitrates monitoring blood pressures closely Continue serial cardiac enzymes and EKGs Telemetry monitoring Echocardiogram though may be limited windows due to body habitus Check lipid panel and A1c for risk stratification Wound care for sacral area, frequent turning Continue cefdinir prophylaxis and vitamin C Check UA Continue home baclofen and gabapentin Cpap with sleep Supplemental oxygen if needed Monitor lymphedema and stasis changes Continue home venlafaxine and trazodone Continue home omeprazole Routine chronic catheter management, will not be removed this stay, will change to bedside bag as needed Routine colostomy care VTE prophylaxis: on warfarin, therapeutic at admit, being held for planned procedure,with plan to restart after procedure, bridging as needed, lymphedema in lower extremities limits ability to effectively use SCDs GI Prophylaxis: PPI chronically Antibiotics: cefdinir chronically for prophylaxis Pending studies: UA, 6 hr troponin, am lipid panel and A1c Telemetry: ordered due to presenting complaint Mahajan: chronic suprapubic catherter present on admisison Line(s): peripheral IVs Disposition plan: Home with outpatient follow up to cardiology in addition to 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 Already has appointments scheduled in September with [facility]. Code Status: Full Code Supportive care otherwise Findings, concerns and plans were discussed with patient and she was given an opportunity to ask questions. We discussed cardiac cardiac catheterization procedure, plan for cardiology consultation and medication management plan around anticoagulation. 08/19/2024 Hold warfarin at this time. Continue aspirin beta-zara nitrates Echo pending Lipid panel A1c pending Continue wound care as per wound care instructions Continue cefdinir Continue baclofen and gabapentin Continue venlafaxine trazodone N.p.o. midnight for potential angiogram in a.m. Check CBC CMP INR in AM. Await urine culture. 08/20/2024 -Continue cefdinir Called warfarin at this time Continue aspirin Plavix beta-zara Lipid panel resulted. Hemoglobin A1c 5.7. ? Continue home medications ? And be admitted for potential angiogram in a.m. Urine culture grows gram-negative rods. Continue heparin drip Cardiology consulted. Appreciate recommendations 08/21/2024 -Continue cefdinir hold warfarin at this time Continue aspirin Plavix beta-zara Lipid panel resulted. Hemoglobin A1c 5.7. ? Continue home medications ? And be admitted for potential angiogram in a.m. Urine culture grows gram-negative rods. Continue heparin drip Cardiology consulted. Appreciate recommendations awaiting INR to come down < 1.5 plan for coronary angiogram in AM 08/22/2024 Patient doing coronary angiogram this morning. ? Angiogram did not show any obstructions ? Will restart warfarin. Stop heparin drip. ? Continue on cefdinir chronic suppression ? Appreciate recommendations from cardiology. PDMP PDMP Reviewed: Not Reviewed Attestations Medical Necessity Statement*: Patient requires continued hospital stay for close monitoring and further management Diagnoses Unstable angina I20.0 Chronic anticoagulation Z79.01 Wound of sacral region, subsequent encounter S31.000D Encounter type: subsequent encounter Chronic cystitis N30.20 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 SAVAGE on CPAP G47.33 History of DVT (deep vein thrombosis) Z86.718 Lymphedema I89.0 Other depression F32.89 Depression Type: other depression Gastroesophageal reflux disease without esophagitis K21.9 Esophagitis presence: without esophagitis Suprapubic catheter Z93.[address] Z93.3 BMI 50.0-59.9, adult Z68.43
[2024-08-22] MEDS: ondansetron 2 mg/ML SDV 2 mL 4 MG IVP (19:30)
[2024-08-22] MEDS: baclofen 10 mg Tablet 20 MG PO (20:44)
[2024-08-22] MEDS: potassium chloride ER 20 mEq Tablet PO (20:44)
[2024-08-22] MEDS: docusate sodium 100 mg Capsule PO (20:44)
[2024-08-22] MEDS: trazodone 50 mg Tablet PO (20:44)
[2024-08-22] MEDS: venlafaxine ER (24HR) 150 mg Capsule PO (20:44)
[2024-08-22] MEDS: gabapentin 300 mg Capsule 600 MG PO (20:44)
[2024-08-22] MEDS: pantoprazole DR 40 mg Tablet PO (20:44)
[2024-08-22] MEDS: atorvastatin 40 mg Tablet PO (20:44)
[2024-08-23] VITALS (9 sets, daily range): BP systolic 98–119; BP diastolic 50–74; PULSE 72–81; RESP 15–22; TEMP 36.4–37; O2SAT 92–98; BMI 50.2
[2024-08-23 03:46] LABS: Basophils % 0.4 %; Eosinophils # 0.4 10^3/uL (0.0-0.8); Eosinophils % 5.7 %; Hematocrit 43.4 % (36-47); Lymphocytes # 1.5 10^3/uL (0.8-4.8); Lymphocytes % 20.6 %; Mean Corpuscular HGB Conc 30.6 g/dL (30-55); Mean Corpuscular Hemoglobin 29.8 pg (27-33); Mean Corpuscular Volume 97.1 fl (85-98); Mean Platelet Volume 10.2 fL (7.4-10.4); Monocytes # 0.7 10^3/uL (0.2-0.9); Monocytes % 9.8 %; Neutrophils # 4.51 10^3/uL (1.8-7.7); Neutrophils % 63.1 %; Nucleated Red Blood Cells % 0 %; Platelet Count 543 10^3/cmm (157-399); Red Blood Count 4.47 10^6/uL (3.85-5.65); Red Cell Distribution Width 13.9 % (12.1-15.1); White Blood Count 7.15 10^3/uL (3.29-11.43)
[2024-08-23 04:01] LABS: Anion Gap 12.3 (5-19); Blood Urea Nitrogen 15 mg/dL (6-20); Calcium 9.2 mg/dL (8.5-10.5); Carbon Dioxide 32 mmol/L (22-29); Chloride 101 mmol/L (98-107); Creatinine Clr Calc Pharmacy 102.2835; Glomerular Filtration Rate 74.2 mL/min (90-130); Glucose 121 mg/dL (65-115); Osmolality Calculated 294 mOsm/kg (285-295); Potassium 4.3 mmol/L (3.5-5.1); Sodium 141 mmol/L (136-145)
[2024-08-23] MEDS: FUROsemide 20 mg Tablet PO (08:47)
[2024-08-23] MEDS: ascorbic acid 500 mg Tablet 1000 MG PO ×2 (08:47→17:31)
[2024-08-23] MEDS: cefdinir 300 MG CAPSULE PO (08:47)
[2024-08-23] MEDS: enoxaparin 150 mg/mL Syringe 130 MG SUBCUT ×2 (08:54→20:50)
--- NOTE | 2024-08-23 09:39 | P.PN_ITS ---
Subjective 2 Medications: Medication Review Details: Current Medications Acetaminophen (Acetaminophen 325 Mg Tablet) 650 mg PO Q6H PRN PRN Reason: Mild/Mod Pain Or Temp >/= 101 Al Hydrox/Mg Hydrox/Simethicone (Wlvl-Ywk-Ivvoacrnk-Tracy 30 Ml Udc) 30 ml PO Q15M PRN PRN Reason: INDIGESTION Albuterol Sulfate (Albuterol 2.5 Mg/3 Ml Neb) 2.5 mg INHALATION Q6H.RESP PRN PRN Reason: SHORTNESS OF BREATH Alprazolam (Alprazolam 0.5 Mg Tablet) 0.25 mg PO TID PRN PRN Reason: ANXIETY Ascorbic Acid (Ascorbic Acid 500 Mg Tablet) 1,000 mg PO BID [facility] Last Admin: 08/23/24 08:47 Dose: 1,000 mg Atorvastatin Calcium (Atorvastatin 40 Mg Tablet) 40 mg PO BEDTIME [facility] Last Admin: 08/22/24 20:44 Dose: 40 mg Atropine Sulfate (Atropine 1 Mg/Ml Sdv 1 Ml) 0.5 mg IVP PRN PRN PRN Reason: Symptomatic bradycardia Baclofen (Baclofen 10 Mg Tablet) 20 mg PO BEDTIME [facility] Last Admin: 08/22/24 20:44 Dose: 20 mg Bisacodyl (Bisacodyl 5 Mg Tablet) 10 mg PO DAILY PRN; Protocol PRN Reason: Constipation (see protocol) Cefdinir (Cefdinir 300 Mg Capsule) 300 mg PO DAILY [facility]; Protocol Last Admin: 08/23/24 08:47 Dose: 300 mg Docusate Sodium (Docusate Sodium 100 Mg Capsule) 100 mg PO BEDTIME [facility] Last Admin: 08/22/24 20:44 Dose: 100 mg Enoxaparin Sodium (Enoxaparin 150 Mg/Ml Syringe) 130 mg SUBCUT Q12H [facility] Last Admin: 08/23/24 08:54 Dose: 130 mg Furosemide (Furosemide 20 Mg Tablet) 20 mg PO DAILY@0800 [facility] Last Admin: 08/23/24 08:47 Dose: 20 mg Gabapentin (Gabapentin 300 Mg Capsule) 600 mg PO BEDTIME [facility] Last Admin: 08/22/24 20:44 Dose: 600 mg Magnesium Hydroxide (Magnesium Hydroxide 30 Ml Udc) 30 ml PO DAILY PRN PRN Reason: CONSTIPATION Naloxone HCl (Naloxone 0.4 Mg/Ml Sdv) 0.1 mg IVP Q2M PRN PRN Reason: RESPIRATORY RATE < 8/MIN Nitroglycerin (Nitroglycerin 0.4 Mg Sublingual Tablet) 0.4 mg SUBLINGUAL Q5M PRN PRN Reason: CHEST PAIN Ondansetron HCl (Ondansetron 2 Mg/Ml Sdv 2 Ml) 4 mg IVP Q8H PRN PRN Reason: vomiting, or N/V if npo Last Admin: 08/22/24 19:30 Dose: 4 mg Pantoprazole Sodium (Pantoprazole Dr 40 Mg Tablet) 40 mg PO BEDTIME [facility] Last Admin: 08/22/24 20:44 Dose: 40 mg Potassium Chloride (Potassium Chloride Er 20 Meq Tablet) 20 meq PO BEDTIME [facility] Last Admin: 08/22/24 20:44 Dose: 20 meq Temazepam (Temazepam 15 Mg Capsule) 15 mg PO BEDTIME PRN PRN Reason: INSOMNIA Trazodone HCl (Trazodone 50 Mg Tablet) 50 mg PO BEDTIME PRN PRN Reason: insomnia Last Admin: 08/22/24 20:44 Dose: 50 mg Venlafaxine HCl (Venlafaxine Er (24hr) 150 Mg Capsule) 150 mg PO BEDTIME [facility] Last Admin: 08/22/24 20:44 Dose: 150 mg Warfarin Sodium (Warfarin 5 Mg Tablet) 5 mg PO MoTuWeFrSa@1400 [facility] Last Admin: 08/22/24 17:01 Dose: Not Given Warfarin Sodium (Warfarin 5 Mg Tablet) 7.5 mg PO SuTh@1400 [facility] Vitals/I&O/Wt Last Vital Signs Temp 97.6 F 08/23/24 07:22 Pulse 79 08/23/24 07:22 Resp 16 08/23/24 07:22 BP 104/74 08/23/24 07:22 Pulse Ox 97 08/23/24 07:22 O2 Del Method Nasal Cannula 08/23/24 07:22 O2 Flow Rate 2 08/22/24 21:43 08/22/24 08/23/24 08/23/24 22:59 06:59 14:59 Intake Total 240 / 240 Output Total 1200 / 1200 Balance -1200 / -1200 240 / -960 Weight last 48 hrs Weight 283 lb 9 oz Weight 281 lb 8 oz Physical Exam 2 Narrative: GENERAL: The patient is alert and oriented times three. Not in any acute distress. Obese HEENT: No significant pallor, icterus or lymphadenopathy.Oral cavity: There are no mucous membrane lesions. NECK: Trachea appears to be central. No masses noted. No JVD or thyromegaly appreciated. RESPIRATORY: Chest is symmetrical. No intercostals muscle retraction or any accessory muscle activation. There is no chest wall tenderness. Breath sounds are heard bilaterally. No rales or rhonchi heard. No evidence of any consolidation. BREASTS: Deferred. HEART: The heart sounds are normal. No S3 or S4. No significant murmurs. No pericardial rub ABDOMEN: No vessel pulsations or distention. No tenderness. No organomegaly appreciated. Bowel sounds are normally heard. : Deferred. RECTAL: Deferred. LYMPHATIC: No lymphadenopathy noted in the neck. EXTREMITIES:1- 2+ edema both lower extremities. Features of chronic venous stasis. MUSCULOSKELETAL: No acute joint deformities or swelling SKIN: There are no significant rashes or ecchymosis NEUROPSYCHIATRIC: Patient has grade 1-2 power of the both lower extremities. Urinary Catheter Management: Suprapubic: Cath Placed During This Visit: no Reason for Continuing Indwelling Catheter: Other Data 08/23/24 02:39 08/23/24 02:39 Other Labs: Laboratory Last Values WBC 7.15 10^3/uL (3.29-11.43) 08/23/24 02:39 RBC 4.47 10^6/uL (3.85-5.65) 08/23/24 02:39 Hgb 13.30 g/dL (11.27-16.99) 08/23/24 02:39 Hct 43.4 % (36-47) 08/23/24 02:39 MCV 97.1 fl (85-98) 08/23/24 02:39 MCH 29.8 pg (27-33) 08/23/24 02:39 MCHC 30.6 g/dL (30-55) 08/23/24 02:39 RDW 13.9 % (12.1-15.1) 08/23/24 02:39 Plt Count 543 10^3/cmm (157-399) H D 08/23/24 02:39 MPV 10.2 fL (7.4-10.4) 08/23/24 02:39 Neut % (Auto) 63.1 % 08/23/24 02:39 Lymph % (Auto) 20.6 % 08/23/24 02:39 [place] % (Auto) 9.8 % 08/23/24 02:39 Eos % (Auto) 5.7 % 08/23/24 02:39 Baso % (Auto) 0.4 % 08/23/24 02:39 Neut # (Auto) 4.51 10^3/uL (1.8-7.7) 08/23/24 02:39 Lymph # (Auto) 1.5 10^3/uL (0.8-4.8) 08/23/24 02:39 [place] # (Auto) 0.7 10^3/uL (0.2-0.9) 08/23/24 02:39 Eos # (Auto) 0.4 10^3/uL (0.0-0.8) 08/23/24 02:39 Baso # (Auto) 0.0 10^3/uL (0.0-0.1) 08/23/24 02:39 Nucleated RBC % (auto) 0 % 08/23/24 02:39 Nucleated RBCs # 0.0 /100WBC 08/23/24 02:39 PT 15.00 SECONDS (12.1-14.9) H 08/23/24 02:39 INR 1.10 (0.8-1.2) 08/23/24 02:39 APTT 86.6 SECONDS (23.9-36.7) H 08/22/24 07:54 Sodium 141 mmol/L (136-145) 08/23/24 02:39 Potassium 4.3 mmol/L (3.5-5.1) 08/23/24 02:39 Chloride 101 mmol/L (98-107) 08/23/24 02:39 Carbon Dioxide 32 mmol/L (22-29) H 08/23/24 02:39 Anion Gap 12.3 (5-19) 08/23/24 02:39 BUN 15 mg/dL (6-20) 08/23/24 02:39 Creatinine 0.8 mg/dL (0.5-0.9) 08/23/24 02:39 GFR Calculation 74.2 mL/min (90-130) L 08/23/24 02:39 Glucose 121 mg/dL (65-115) H 08/23/24 02:39 Estimat Average Glucose 117 08/19/24 04:00 Hemoglobin A1c 5.7 % (4.0-6.0) 08/19/24 04:00 Calculated Osmolality 294 mOsm/kg (285-295) 08/23/24 02:39 Calcium 9.2 mg/dL (8.5-10.5) 08/23/24 02:39 Phosphorus 3.5 mg/dL (2.5-4.5) 08/19/24 04:00 Magnesium 1.7 mg/dL (1.7-2.3) 08/22/24 05:45 Total Bilirubin 0.3 mg/dL (0.15-1.2) 08/22/24 05:45 AST 25 U/L (0-32) 08/22/24 05:45 ALT 33 U/L (0-33) 08/22/24 05:45 Alkaline Phosphatase 90 U/L (35-105) 08/22/24 05:45 Troponin T Baseline 20 ng/L (0-10) H 08/18/24 08:58 Troponin T 120 Minute 20.21 ng/L (0-10) H 08/18/24 11:30 Delta Troponin T 0.21 ABS# (0-10) 08/18/24 11:30 Troponin T Hi Sens 6Hr 20.39 ng/L (0-10) H 08/18/24 14:59 Troponin T Hi Sens 6Hr Delta 0.39 ng/L (0-12) 08/18/24 14:59 Total Protein 6.9 g/dL (6.6-8.7) 08/22/24 05:45 Albumin 3.4 g/dL (3.5-5.2) L 08/22/24 05:45 Globulin 3.5 g/dL (1.3-4.6) 08/22/24 05:45 Triglycerides 121 mg/dL (0-150) 08/19/24 04:00 Cholesterol 115 mg/dL (0-200) 08/19/24 04:00 LDL Cholesterol, Calc 63 mg/dL (50-129) 08/19/24 04:00 HDL Cholesterol 28 mg/dL (60-100) L 08/19/24 04:00 LDL/HDL Ratio 2.25 RATIO (0.00-3.22) 08/19/24 04:00 Cholesterol/HDL Ratio 4.11 mg/dL (0.0-4.40) 08/19/24 04:00 Urine Color Yellow (Yellow) 08/19/24 04:47 Urine Appearance Turbid (CLEAR) A 08/19/24 04:47 Urine pH 5.5 (5-7) 08/19/24 04:47 Ur Specific [place] 1.057 (1.005-1.030) H 08/19/24 04:47 Urine Protein 1+ (Negative) A 08/19/24 04:47 Urine Glucose (UA) Negative (Normal) 08/19/24 04:47 Urine Ketones Trace (Negative) 08/19/24 04:47 Urine Blood 2+ (Negative) A 08/19/24 04:47 Urine Nitrate Positive (Negative) A 08/19/24 04:47 Urine Bilirubin Negative (Negative) 08/19/24 04:47 Urine Urobilinogen 1.0 mg/dL (Negative) 08/19/24 04:47 Ur Leukocyte Esterase Trace (Negative) A 08/19/24 04:47 Urine RBC 51-100 /hpf (0-2) H 08/19/24 04:47 Urine WBC 51-100 /hpf (0-5) H 08/19/24 04:47 Ur Squamous Epith Cells 0-5 /hpf (0-5) 08/19/24 04:47 Calcium Oxalate Crystal 10-15 /hpf H 08/19/24 04:47 Amorphous Sediment Not Reportable 08/19/24 04:47 Urine Bacteria 4+ /hpf (NONE) H 08/19/24 04:47 Hyaline Casts 7.01 /lpf 08/19/24 04:47 Urine Mucus 2+ /hpf 08/19/24 04:47 Coronavirus (PCR) Negative (Negative) 08/18/24 09:49 Influenza A (PCR) Negative (Negative) 08/18/24 09:49 Influenza Type B (PCR) Negative (Negative) 08/18/24 09:49 RSV (PCR) Negative (Negative) 08/18/24 09:49 A&P Assessment and plan (1) Unstable angina: Had a cardiac arrest yesterday. No significant obstructive coronary disease. Will need to look into a noncardiac cause for the pain (2) Positive cardiac stress test: The abnormal Myocardial perfusion imaging is suggestive of multivessel coronary disease. This needs to be further evaluated by coronary angiogram. Possibility of small vessel disease cannot be excluded (3) GERD (gastroesophageal reflux disease): May continue on the current medications Qualifiers: Esophagitis presence: without esophagitis Qualified Code(s): K21.9 - Gastro-esophageal reflux disease without esophagitis (4) History of DVT (deep vein thrombosis): Patient is on long-term oral anticoagulation. The warfarin may be restarted. Patient also would benefit from bridging anticoagulation. Plan The other problems are T4 paraplegia neurogenic bladder with suprapubic catheter Status post colostomy Decubitus ulcer in the sacrum Obesity May be started on isosorbide mononitrate 30 mg p.o. daily Bridging anticoagulation If the patient remains stable, may be discharged home from a cardiac standpoint PDMP PDMP Reviewed: Not Reviewed Attestations 2 Medical Necessity Statement*: Disposition as per the primary Coding Level of Care Code 93705 Diagnoses Unstable angina I20.0 Positive cardiac stress test R94.39 Gastroesophageal reflux disease without esophagitis K21.9 Esophagitis presence: without esophagitis History of DVT (deep vein thrombosis) Z86.718
--- NOTE | 2024-08-23 14:49 | PM.PN ---
Subjective Subjective: Seen this morning. Coronary angiogram showed patent vessels. INR 1.10 this morning. Vitals/I&O/Wt Last Vital Signs Temp 98.0 F 08/23/24 11:17 Pulse 81 08/23/24 11:17 Resp 19 H 08/23/24 11:17 BP 99/54 08/23/24 11:17 Pulse Ox 98 08/23/24 11:17 O2 Del Method Nasal Cannula 08/23/24 11:17 O2 Flow Rate 2 08/23/24 10:00 08/22/24 08/23/24 08/23/24 22:59 06:59 14:59 Intake Total 240 / 240 840 / 840 Output Total 1200 / 1200 Balance -1200 / -1200 240 / -960 840 / 840 Weight last 48 hrs Weight 128.622 kg Weight 127.686 kg Physical Exam Narrative: General: Alert oriented x3, Cardio: Regular rate rhythm, normal S1-S2, Respiratory: Clear to auscultation bilaterally no wheezes no rhonchi appreciated at this time. GI: Abdomen soft, nontender, nondistended, bowel sounds +Colostomy is intact to the left lower quadrant. Extremities: Chronic venous stasis changes. Urinary Catheter Management: Suprapubic: Cath Placed During This Visit: no Reason for Continuing Indwelling Catheter: Other Data 08/23/24 02:39 08/23/24 02:39 Micro: Microbiology 08/19/24 04:47 Urine Culture - Final Urine,Clean Catch Enterobacter cloacae A&P Assessment and plan (1) Unstable angina: With increasing frequency of chest pain episodes as described at rest and with exertion. Baseline activity level is limited to transfers. Cardiac stress testing done on August 05 in the outpatient setting showed no Lexiscan induced symptoms or rhythm changes, normal blood pressure and heart rate response but myocardial perfusion scan showed large area of moderate to severe ischemia in the basal to distal and basal to mid inferior lateral wall of the left ventricle suggestive of possible lesion in the left circumflex. Also noted was a medium sized area of moderate to severe ischemia in the distal LAD and apex of the left ventricle. Has received aspirin. Is currently chest pain-free. (2) Chronic anticoagulation: On warfarin due to history of DVT and PE in 2004. Takes warfarin at bedtime so last dose was on 08/17/2024. Current INR is therapeutic at 3. 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 Current dressing management includes drawtex [place] conductive wound dressing in the wound with gauze 4 x 4 covered with ABD pad and secured with 3M Medipore tape twice daily. Last debridement on August 12. White count is normal. Qualifiers: Encounter type: subsequent encounter Qualified Code(s): S31.000D - Unspecified open wound of lower back and pelvis without penetration into retroperitoneum, subsequent encounter (4) Chronic cystitis: Chronically on cefdinir for prophylaxis. Also continued taking vitamin C after stopping mirabrgron. No recent urinary symptoms. 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 Wheelchair dependent, able to use transfer aids, live alone with family support. On gabapentin and baclofen at bedtime. (6) SAVAGE on CPAP: With sleep (7) History of DVT (deep vein thrombosis): And pulmonary embolism in 2007, had IVC filter placed, on chronic warfarin. CTA of the chest today showed normal pulmonary arteries. (8) Lymphedema: Chronically on furosemide and potassium, has used lymphedema wraps in past, currently doing well, right leg always larger than left, known venous stasis changes (9) Depression: Chronically on venlafaxine, has trazodone for sleep. Qualifiers: Depression Type: other depression Qualified Code(s): F32.89 - Other specified depressive episodes (10) GERD (gastroesophageal reflux disease): Chronically on omeprazole. Qualifiers: Esophagitis presence: without esophagitis Qualified Code(s): K21.9 - Gastro-esophageal reflux disease without esophagitis (11) Suprapubic catheter: Not due for change currently. No change in urine output. (12) Colostomy in place: No recent change in ostomy output, daughter will bring in her bags. Takes docusate at bedtime. (13) BMI 50.0-59.9, adult: Not know to have associated OHS, but can get hypoxic with illness and has as needed oxygen at home, most recent need 06/2024 Plan Widened mediastinum on chest x-ray but CTA of the chest without evidence of dissection or aneurysm Elevated platelets, normal end of June at 320 Mild transaminase elevation and mild hepatomegaly likely related to fatty liver disease Respiratory viral panel checked and negative 08/18/2024 Inpatient admission Cardiology consultation for anticipated catheterization Hold warfarin, daily INR with bridging therapy as needed Aspirin, beta-blockade, nitrates monitoring blood pressures closely Continue serial cardiac enzymes and EKGs Telemetry monitoring Echocardiogram though may be limited windows due to body habitus Check lipid panel and A1c for risk stratification Wound care for sacral area, frequent turning Continue cefdinir prophylaxis and vitamin C Check UA Continue home baclofen and gabapentin Cpap with sleep Supplemental oxygen if needed Monitor lymphedema and stasis changes Continue home venlafaxine and trazodone Continue home omeprazole Routine chronic catheter management, will not be removed this stay, will change to bedside bag as needed Routine colostomy care VTE prophylaxis: on warfarin, therapeutic at admit, being held for planned procedure,with plan to restart after procedure, bridging as needed, lymphedema in lower extremities limits ability to effectively use SCDs GI Prophylaxis: PPI chronically Antibiotics: cefdinir chronically for prophylaxis Pending studies: UA, 6 hr troponin, am lipid panel and A1c Telemetry: ordered due to presenting complaint Mahajan: chronic suprapubic catherter present on admisison Line(s): peripheral IVs Disposition plan: Home with outpatient follow up to cardiology 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 Already has appointments scheduled in September with [facility]. Code Status: Full Code Supportive care otherwise Findings, concerns and plans were discussed with patient and she was given an opportunity to ask questions. We discussed cardiac cardiac catheterization procedure, plan for cardiology consultation and medication management plan around anticoagulation. 08/19/2024 Hold warfarin at this time. Continue aspirin beta-zara nitrates Echo pending Lipid panel A1c pending Continue wound care as per wound care instructions Continue cefdinir Continue baclofen and gabapentin Continue venlafaxine trazodone N.p.o. midnight for potential angiogram in a.m. Check CBC CMP INR in AM. Await urine culture. 08/20/2024 -Continue cefdinir Called warfarin at this time Continue aspirin Plavix beta-zara Lipid panel resulted. Hemoglobin A1c 5.7. ? Continue home medications ? And be admitted for potential angiogram in a.m. Urine culture grows gram-negative rods. Continue heparin drip Cardiology consulted. Appreciate recommendations 08/21/2024 -Continue cefdinir hold warfarin at this time Continue aspirin Plavix beta-zara Lipid panel resulted. Hemoglobin A1c 5.7. ? Continue home medications ? And be admitted for potential angiogram in a.m. Urine culture grows gram-negative rods. Continue heparin drip Cardiology consulted. Appreciate recommendations awaiting INR to come down < 1.5 plan for coronary angiogram in AM 08/22/2024 Patient doing coronary angiogram this morning. ? Angiogram did not show any obstructions ? Will restart warfarin. Stop heparin drip. ? Continue on cefdinir chronic suppression ? Appreciate recommendations from cardiology. 08/23/2024 Placed on therapeutic Lovenox at this time to bridge to warfarin. Continue cefdinir chronic suppression. Urine culture did show gram-negative rods and Enterobacter sensitive to imipenem levofloxacin, Zosyn. Probably colonization? I will place on Zosyn at this time. Patient may be able to discharge home in a.m. once INR has improved. Pharmacy to dose warfarin PDMP PDMP Reviewed: Not Reviewed Attestations Medical Necessity Statement*: Lovenox bridging to warfarin. Diagnoses Unstable angina I20.0 Chronic anticoagulation Z79.01 Wound of sacral region, subsequent encounter S31.000D Encounter type: subsequent encounter Chronic cystitis N30.20 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 SAVAGE on CPAP G47.33 History of DVT (deep vein thrombosis) Z86.718 Lymphedema I89.0 Other depression F32.89 Depression Type: other depression Gastroesophageal reflux disease without esophagitis K21.9 Esophagitis presence: without esophagitis Suprapubic catheter Z93.[address] Z93.3 BMI 50.0-59.9, adult Z68.43
[2024-08-23] MEDS: warfarin 5 mg Tablet 7.5 MG PO (15:03)
[2024-08-23] MEDS: atorvastatin 40 mg Tablet PO (20:50)
[2024-08-23] MEDS: docusate sodium 100 mg Capsule PO (20:50)
[2024-08-23] MEDS: potassium chloride ER 20 mEq Tablet PO (20:50)
[2024-08-23] MEDS: baclofen 10 mg Tablet 20 MG PO (20:50)
[2024-08-23] MEDS: gabapentin 300 mg Capsule 600 MG PO (20:50)
[2024-08-23] MEDS: venlafaxine ER (24HR) 150 mg Capsule PO (20:50)
[2024-08-23] MEDS: pantoprazole DR 40 mg Tablet PO (20:50)
[2024-08-23] MEDS: trazodone 50 mg Tablet PO (20:52)
[2024-08-23] MEDS: acetaminophen 325 mg Tablet 650 MG PO (23:38)
[2024-08-24] VITALS (9 sets, daily range): BP systolic 105–120; BP diastolic 52–73; PULSE 66–88; RESP 15–22; TEMP 36.4–36.8; O2SAT 90–99
[2024-08-24 05:28] LABS: Basophils % 0.4 %; Eosinophils # 0.3 10^3/uL (0.0-0.8); Eosinophils % 4.7 %; Hematocrit 39.9 % (36-47); Lymphocytes # 1.5 10^3/uL (0.8-4.8); Lymphocytes % 20.7 %; Mean Corpuscular HGB Conc 31.3 g/dL (30-55); Mean Corpuscular Hemoglobin 29.8 pg (27-33); Mean Corpuscular Volume 95.2 fl (85-98); Mean Platelet Volume 10.8 fL (7.4-10.4); Monocytes # 0.7 10^3/uL (0.2-0.9); Monocytes % 10.1 %; Neutrophils % 63.7 %; Nucleated Red Blood Cells % 0 %; Platelet Count 435 10^3/cmm (157-399); Red Blood Count 4.19 10^6/uL (3.85-5.65); Red Cell Distribution Width 14.2 % (12.1-15.1); White Blood Count 7.06 10^3/uL (3.29-11.43)
[2024-08-24 05:33] LABS: INR 1.03 (0.8-1.2)
[2024-08-24] MEDS: cefdinir 300 MG CAPSULE PO (08:42)
[2024-08-24] MEDS: isosorbide mononitrate ER 30 mg Tablet PO (08:42)
[2024-08-24] MEDS: FUROsemide 20 mg Tablet PO (08:42)
[2024-08-24] MEDS: enoxaparin 150 mg/mL Syringe 130 MG SUBCUT ×2 (08:42→20:24)
[2024-08-24] MEDS: ascorbic acid 500 mg Tablet 1000 MG PO ×2 (08:43→17:23)
[2024-08-24 12:51] LABS: Blood Urea Nitrogen 16 mg/dL (6-20); Calcium 8.8 mg/dL (8.5-10.5); Carbon Dioxide 31 mmol/L (22-29); Chloride 98 mmol/L (98-107); Creatinine Clr Calc Pharmacy 117.1527; Glomerular Filtration Rate 86.6 mL/min (90-130); Glucose 125 mg/dL (65-115); Osmolality Calculated 287 mOsm/kg (285-295); Sodium 137 mmol/L (136-145)
[2024-08-24 12:53] LABS: Anion Gap 13.2 (5-19); Potassium 5.2 mmol/L (3.5-5.1)
[2024-08-24] MEDS: warfarin 5 mg Tablet PO (14:54)
--- NOTE | 2024-08-24 15:04 | P.PN_ITS ---
Subjective 2 Subjective: No acute interim events. INR this morning at 1.03. Denies any chest pain. Medications: Medication Review Details: Current Medications Acetaminophen (Acetaminophen 325 Mg Tablet) 650 mg PO Q6H PRN PRN Reason: Mild/Mod Pain Or Temp >/= 101 Al Hydrox/Mg Hydrox/Simethicone (Snvv-Lff-Myiqyruys-Tracy 30 Ml Udc) 30 ml PO Q15M PRN PRN Reason: INDIGESTION Albuterol Sulfate (Albuterol 2.5 Mg/3 Ml Neb) 2.5 mg INHALATION Q6H.RESP PRN PRN Reason: SHORTNESS OF BREATH Alprazolam (Alprazolam 0.5 Mg Tablet) 0.25 mg PO TID PRN PRN Reason: ANXIETY Ascorbic Acid (Ascorbic Acid 500 Mg Tablet) 1,000 mg PO BID [facility] Last Admin: 08/23/24 08:47 Dose: 1,000 mg Atorvastatin Calcium (Atorvastatin 40 Mg Tablet) 40 mg PO BEDTIME [facility] Last Admin: 08/22/24 20:44 Dose: 40 mg Atropine Sulfate (Atropine 1 Mg/Ml Sdv 1 Ml) 0.5 mg IVP PRN PRN PRN Reason: Symptomatic bradycardia Baclofen (Baclofen 10 Mg Tablet) 20 mg PO BEDTIME [facility] Last Admin: 08/22/24 20:44 Dose: 20 mg Bisacodyl (Bisacodyl 5 Mg Tablet) 10 mg PO DAILY PRN; Protocol PRN Reason: Constipation (see protocol) Cefdinir (Cefdinir 300 Mg Capsule) 300 mg PO DAILY [facility]; Protocol Last Admin: 08/23/24 08:47 Dose: 300 mg Docusate Sodium (Docusate Sodium 100 Mg Capsule) 100 mg PO BEDTIME [facility] Last Admin: 08/22/24 20:44 Dose: 100 mg Enoxaparin Sodium (Enoxaparin 150 Mg/Ml Syringe) 130 mg SUBCUT Q12H [facility] Last Admin: 08/23/24 08:54 Dose: 130 mg Furosemide (Furosemide 20 Mg Tablet) 20 mg PO DAILY@0800 [facility] Last Admin: 08/23/24 08:47 Dose: 20 mg Gabapentin (Gabapentin 300 Mg Capsule) 600 mg PO BEDTIME [facility] Last Admin: 08/22/24 20:44 Dose: 600 mg Magnesium Hydroxide (Magnesium Hydroxide 30 Ml Udc) 30 ml PO DAILY PRN PRN Reason: CONSTIPATION Naloxone HCl (Naloxone 0.4 Mg/Ml Sdv) 0.1 mg IVP Q2M PRN PRN Reason: RESPIRATORY RATE < 8/MIN Nitroglycerin (Nitroglycerin 0.4 Mg Sublingual Tablet) 0.4 mg SUBLINGUAL Q5M PRN PRN Reason: CHEST PAIN Ondansetron HCl (Ondansetron 2 Mg/Ml Sdv 2 Ml) 4 mg IVP Q8H PRN PRN Reason: vomiting, or N/V if npo Last Admin: 08/22/24 19:30 Dose: 4 mg Pantoprazole Sodium (Pantoprazole Dr 40 Mg Tablet) 40 mg PO BEDTIME [facility] Last Admin: 08/22/24 20:44 Dose: 40 mg Potassium Chloride (Potassium Chloride Er 20 Meq Tablet) 20 meq PO BEDTIME [facility] Last Admin: 08/22/24 20:44 Dose: 20 meq Temazepam (Temazepam 15 Mg Capsule) 15 mg PO BEDTIME PRN PRN Reason: INSOMNIA Trazodone HCl (Trazodone 50 Mg Tablet) 50 mg PO BEDTIME PRN PRN Reason: insomnia Last Admin: 08/22/24 20:44 Dose: 50 mg Venlafaxine HCl (Venlafaxine Er (24hr) 150 Mg Capsule) 150 mg PO BEDTIME [facility] Last Admin: 08/22/24 20:44 Dose: 150 mg Warfarin Sodium (Warfarin 5 Mg Tablet) 5 mg PO MoTuWeFrSa@1400 [facility] Last Admin: 08/22/24 17:01 Dose: Not Given Warfarin Sodium (Warfarin 5 Mg Tablet) 7.5 mg PO SuTh@1400 [facility] Vitals/I&O/Wt Last Vital Signs Temp 97.9 F 08/24/24 12:00 Pulse 84 08/24/24 12:00 Resp 20 H 08/24/24 12:00 BP 105/52 08/24/24 12:00 Pulse Ox 99 08/24/24 12:00 O2 Del Method Nasal Cannula 08/24/24 12:00 O2 Flow Rate 2 08/24/24 12:00 08/24/24 08/24/24 08/24/24 06:59 14:59 22:59 Intake Total 250 / 1930 240 / 240 Balance 250 / 1930 240 / 240 Weight last 48 hrs Weight 128.14 kg Weight 128.622 kg Physical Exam 2 Narrative: General: No acute distress, AO x3 HEENT: PERRLA, pupils bilaterally equal and reactive, pallors not present Chest: Normal vesicular breath sounds, no added sounds, equal good air entry bilaterally CVS: S1-S2 regular, no murmurs, no tachycardia, no gallops, no rubs Abdomen: Soft, nontender, no organomegaly, bowel sounds present Neuro: No focal deficits, no facial deformity, AO x3, power 5/5 in all limbs Urinary Catheter Management: Suprapubic: Cath Placed During This Visit: no Reason for Continuing Indwelling Catheter: Chronic Indwelling Urinary Catheter on Admission Data 08/24/24 04:39 08/24/24 12:10 Micro: Microbiology 08/19/24 04:47 Urine Culture - Final Urine,Clean Catch Enterobacter cloacae A&P Assessment and plan (1) Unstable angina: With increasing frequency of chest pain episodes as described at rest and with exertion. Baseline activity level is limited to transfers. Cardiac stress testing done on August 05 in the outpatient setting showed no Lexiscan induced symptoms or rhythm changes, normal blood pressure and heart rate response but myocardial perfusion scan showed large area of moderate to severe ischemia in the basal to distal and basal to mid inferior lateral wall of the left ventricle suggestive of possible lesion in the left circumflex. Also noted was a medium sized area of moderate to severe ischemia in the distal LAD and apex of the left ventricle. Has received aspirin. Is currently chest pain-free. (2) Chronic anticoagulation: On warfarin due to history of DVT and PE in 2004. Takes warfarin at bedtime so last dose was on 08/17/2024. Current INR is therapeutic at 3. 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 Current dressing management includes drawtex [place] conductive wound dressing in the wound with gauze 4 x 4 covered with ABD pad and secured with 3M Medipore tape twice daily. Last debridement on August 12. White count is normal. Qualifiers: Encounter type: subsequent encounter Qualified Code(s): S31.000D - Unspecified open wound of lower back and pelvis without penetration into retroperitoneum, subsequent encounter (4) Chronic cystitis: Chronically on cefdinir for prophylaxis. Also continued taking vitamin C after stopping mirabrgron. No recent urinary symptoms. 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 Wheelchair dependent, able to use transfer aids, live alone with family support. On gabapentin and baclofen at bedtime. (6) SAVAGE on CPAP: With sleep (7) History of DVT (deep vein thrombosis): And pulmonary embolism in 2007, had IVC filter placed, on chronic warfarin. CTA of the chest today showed normal pulmonary arteries. (8) Lymphedema: Chronically on furosemide and potassium, has used lymphedema wraps in past, currently doing well, right leg always larger than left, known venous stasis changes (9) Depression: Chronically on venlafaxine, has trazodone for sleep. Qualifiers: Depression Type: other depression Qualified Code(s): F32.89 - Other specified depressive episodes (10) GERD (gastroesophageal reflux disease): Chronically on omeprazole. Qualifiers: Esophagitis presence: without esophagitis Qualified Code(s): K21.9 - Gastro-esophageal reflux disease without esophagitis (11) Suprapubic catheter: Not due for change currently. No change in urine output. (12) Colostomy in place: No recent change in ostomy output, daughter will bring in her bags. Takes docusate at bedtime. (13) BMI 50.0-59.9, adult: Not know to have associated OHS, but can get hypoxic with illness and has as needed oxygen at home, most recent need 06/2024 Plan Widened mediastinum on chest x-ray but CTA of the chest without evidence of dissection or aneurysm Elevated platelets, normal end of June at 320 Mild transaminase elevation and mild hepatomegaly likely related to fatty liver disease Respiratory viral panel checked and negative 08/18/2024 Inpatient admission Cardiology consultation for anticipated catheterization Hold warfarin, daily INR with bridging therapy as needed Aspirin, beta-blockade, nitrates monitoring blood pressures closely Continue serial cardiac enzymes and EKGs Telemetry monitoring Echocardiogram though may be limited windows due to body habitus Check lipid panel and A1c for risk stratification Wound care for sacral area, frequent turning Continue cefdinir prophylaxis and vitamin C Check UA Continue home baclofen and gabapentin Cpap with sleep Supplemental oxygen if needed Monitor lymphedema and stasis changes Continue home venlafaxine and trazodone Continue home omeprazole Routine chronic catheter management, will not be removed this stay, will change to bedside bag as needed Routine colostomy care VTE prophylaxis: on warfarin, therapeutic at admit, being held for planned procedure,with plan to restart after procedure, bridging as needed, lymphedema in lower extremities limits ability to effectively use SCDs GI Prophylaxis: PPI chronically Antibiotics: cefdinir chronically for prophylaxis Pending studies: UA, 6 hr troponin, am lipid panel and A1c Telemetry: ordered due to presenting complaint Mahajan: chronic suprapubic catherter present on admisison Line(s): peripheral IVs Disposition plan: Home with outpatient follow up to cardiology 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 Already has appointments scheduled in September with [facility]. Code Status: Full Code Supportive care otherwise Findings, concerns and plans were discussed with patient and she was given an opportunity to ask questions. We discussed cardiac cardiac catheterization procedure, plan for cardiology consultation and medication management plan around anticoagulation. 08/19/2024 Hold warfarin at this time. Continue aspirin beta-zara nitrates Echo pending Lipid panel A1c pending Continue wound care as per wound care instructions Continue cefdinir Continue baclofen and gabapentin Continue venlafaxine trazodone N.p.o. midnight for potential angiogram in a.m. Check CBC CMP INR in AM. Await urine culture. 08/20/2024 -Continue cefdinir Called warfarin at this time Continue aspirin Plavix beta-zara Lipid panel resulted. Hemoglobin A1c 5.7. ? Continue home medications ? And be admitted for potential angiogram in a.m. Urine culture grows gram-negative rods. Continue heparin drip Cardiology consulted. Appreciate recommendations 08/21/2024 -Continue cefdinir hold warfarin at this time Continue aspirin Plavix beta-zara Lipid panel resulted. Hemoglobin A1c 5.7. ? Continue home medications ? And be admitted for potential angiogram in a.m. Urine culture grows gram-negative rods. Continue heparin drip Cardiology consulted. Appreciate recommendations awaiting INR to come down < 1.5 plan for coronary angiogram in AM 08/22/2024 Patient doing coronary angiogram this morning. ? Angiogram did not show any obstructions ? Will restart warfarin. Stop heparin drip. ? Continue on cefdinir chronic suppression ? Appreciate recommendations from cardiology. 08/23/2024 Placed on therapeutic Lovenox at this time to bridge to warfarin. Continue cefdinir chronic suppression. Urine culture did show gram-negative rods and Enterobacter sensitive to imipenem levofloxacin, Zosyn. Probably colonization? I will place on Zosyn at this time. Patient may be able to discharge home in a.m. once INR has improved. Pharmacy to dose warfarin 08/24/2024 Patient is currently on bridging anticoagulation with full dose Lovenox 1 mg/kg every 12 hours overlapping with warfarin. Increase dose of warfarin to 7.5 mg daily. Discussed with patient about bridging at home. She is eager to discharge from the hospital. We will plan to discharge home with bridging Lovenox and warfarin. Patient has an INR machine at home. We are arranging INR strips to be delivered from [facility] to ensure she has adequate supply to check her INR daily. Instructed patient to discontinue Lovenox injections once INR reaches 2.0. [address] Dr[address] Benson who is her PCP will be able to follow-up with the bridging after discharge from home. Patient is not willing to switch to DOAC as she believes her father related to complications from Eliquis. She wishes to stay on warfarin only. Overall coronary angiogram did not reveal any obstructive CAD. Urine culture is with Enterobacter cloacae. Patient has asymptomatic bacteriuria. Patient is chronically on cefdinir suppression, Enterobacter is currently resistant to third-generation cephalosporins. She will need to reassess chronic suppression with her PCP as unlikely that cefdinir would be helpful in this regard. Would not use chronic suppression with fluoroquinolones at this point for asymptmatic bacteriuria as we have limited drug options given multiple drug resistances. PDMP PDMP Reviewed: Not Reviewed Attestations 2 Medical Necessity Statement*: Bridging anticoagulation. Arrangements being made for INR machine and strips at home, bridging anticoagulation at home. Anticipate discharge in the upcoming 24 hours. Coding Level of Care Code Acute Code for g Fwd Diagnoses Unstable angina I20.0 Chronic anticoagulation Z79.01 Wound of sacral region, subsequent encounter S31.000D Encounter type: subsequent encounter Chronic cystitis N30.20 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 SAVAGE on CPAP G47.33 History of DVT (deep vein thrombosis) Z86.718 Lymphedema I89.0 Other depression F32.89 Depression Type: other depression Gastroesophageal reflux disease without esophagitis K21.9 Esophagitis presence: without esophagitis Suprapubic catheter Z93.[address] Z93.3 BMI 50.0-59.9, adult Z68.43
[2024-08-24] MEDS: warfarin 5 mg Tablet 2.5 MG PO (15:40)
--- NOTE | 2024-08-24 18:30 | PC.NURSE ---
Patient's right breast bandage is checked, it is dry and intact with opitform. Patient's sacrum pressure ulcer is dressed per wound care orders. Patient tolerated well.
[2024-08-24] MEDS: acetaminophen 325 mg Tablet 650 MG PO (20:23)
[2024-08-24] MEDS: docusate sodium 100 mg Capsule PO (20:24)
[2024-08-24] MEDS: venlafaxine ER (24HR) 150 mg Capsule PO (20:24)
[2024-08-24] MEDS: trazodone 50 mg Tablet PO (20:24)
[2024-08-24] MEDS: potassium chloride ER 20 mEq Tablet PO (20:24)
[2024-08-24] MEDS: pantoprazole DR 40 mg Tablet PO (20:24)
[2024-08-24] MEDS: gabapentin 300 mg Capsule 600 MG PO (20:24)
[2024-08-24] MEDS: atorvastatin 40 mg Tablet PO (20:24)
[2024-08-24] MEDS: baclofen 10 mg Tablet 20 MG PO (20:24)
[2024-08-25] VITALS: BP 157/76; PULSE 86; RESP 19; TEMP 36.4; O2SAT 94
[2024-08-25 03:08] LABS: Basophils % 0.4 %; Eosinophils # 0.5 10^3/uL (0.0-0.8); Eosinophils % 6.3 %; Hematocrit 38.5 % (36-47); Lymphocytes # 1.7 10^3/uL (0.8-4.8); Lymphocytes % 23.7 %; Mean Corpuscular HGB Conc 31.9 g/dL (30-55); Mean Corpuscular Hemoglobin 30.3 pg (27-33); Mean Corpuscular Volume 94.8 fl (85-98); Mean Platelet Volume 10.2 fL (7.4-10.4); Monocytes # 0.7 10^3/uL (0.2-0.9); Monocytes % 10.3 %; Neutrophils # 4.16 10^3/uL (1.8-7.7); Neutrophils % 58.7 %; Nucleated Red Blood Cells % 0 %; Platelet Count 388 10^3/cmm (157-399); Red Blood Count 4.06 10^6/uL (3.85-5.65); Red Cell Distribution Width 13.8 % (12.1-15.1); White Blood Count 7.09 10^3/uL (3.29-11.43)
[2024-08-25 04:00] VITALS: BP 140/73; PULSE 77; RESP 14; TEMP 36.4; O2SAT 97
[2024-08-25 05:31] VITALS: PULSE 73
[2024-08-25 08:00] VITALS: BP 119/67; PULSE 69; RESP 16; TEMP 36.6; O2SAT 97
[2024-08-25] MEDS: FUROsemide 20 mg Tablet PO (08:24)
[2024-08-25] MEDS: enoxaparin 150 mg/mL Syringe 130 MG SUBCUT (08:24)
[2024-08-25] MEDS: ascorbic acid 500 mg Tablet 1000 MG PO (08:24)
[2024-08-25] MEDS: cefdinir 300 MG CAPSULE PO (08:24)
[2024-08-25] MEDS: isosorbide mononitrate ER 30 mg Tablet PO (08:24)
[2024-08-25 08:28] LABS: INR 1.19 (0.8-1.2)
[2024-08-25 09:31] LABS: Alanine Aminotransferase 27 U/L (0-33); Albumin Level 3.2 g/dL (3.5-5.2); Alkaline Phosphatase 90 U/L (35-105); Anion Gap 13.8 (5-19); Aspartate Amino Transferase 23 U/L (0-32); Blood Urea Nitrogen 15 mg/dL (6-20); Carbon Dioxide 29 mmol/L (22-29); Chloride 98 mmol/L (98-107); Globulin 3.5 g/dL (1.3-4.6); Glomerular Filtration Rate 86.6 mL/min (90-130); Glucose 134 mg/dL (65-115); Osmolality Calculated 287 mOsm/kg (285-295); Potassium 3.8 mmol/L (3.5-5.1); Sodium 137 mmol/L (136-145); Total Bilirubin 0.3 mg/dL (0.15-1.2); Total Protein 6.7 g/dL (6.6-8.7)
[2024-08-25 10:09] VITALS: BP 119/67; PULSE 73; RESP 15; O2SAT 92
--- NOTE | 2024-08-25 12:36 | PC.NURSE ---
Patient had [employer] ride set up for transportation back to home this morning per case management. [employer] called at 1210 and said that they were no longer taking rides today due to the weather. Nursing explained this to the patient. Patient insisted that she was leaving and going home. She stated that rides back out on her all the time, that is why I just do it myself. Patient said, I am leaving and going on my own. Nursing told patient that she did not agree with this decision 3 times and tried to keep her here but patient said she was leaving. Patient left and is driving her motorized wheelchair home. Her family did bring her extra clothes to wear.
--- NOTE | 2024-08-25 13:10 | PC.NURSE ---
Patient just called the unit to let us know that she made it home with no issues.
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
== END 2024-08-25 12:36 | disposition home or self-care (01) | DRG 286 ==
LOC: ER 12:23 → ER IP 14:59 → CSU 18:41 → ER IP 18:42
PROVIDERS: Internal Medicine; Internal Medicine Cardiovascular Disease; Admitting Provider Hospitalist; Emergency Provider Family Medicine; PCP Family Medicine; Visit Provider Student in an Organized Health Care Education/Training Program
PROC: 4A023N7 Measurement of Cardiac Sampling and Pressure, Left Heart, Percutaneous Approach (ICD-10-PCS; principal; 2024-08-22 10:00)
DX: I20.0 Unstable angina (principal); L89.154 Pressure ulcer of sacral region, stage 4; G82.20 Paraplegia, unspecified; Z68.43 Body mass index [BMI] 50.0-59.9, adult; N30.20 Other chronic cystitis without hematuria; G47.33 Obstructive sleep apnea (adult) (pediatric); I89.0 Lymphedema, not elsewhere classified; F32.A Depression, unspecified; K21.9 Gastro-esophageal reflux disease without esophagitis; N18.2 Chronic kidney disease, stage 2 (mild); I73.9 Peripheral vascular disease, unspecified; E66.9 Obesity, unspecified; Z79.01 Long term (current) use of anticoagulants; Z86.718 Personal history of other venous thrombosis and embolism; Z86.711 Personal history of pulmonary embolism; Z93.50 Unspecified cystostomy status; Z93.6 Other artificial openings of urinary tract status
CPT/HCPCS: 36415; 36573; 36592; 71045; 71275; 80048; 80053; 80061; 81001; 83036; 83735; 84100; 84484; 85025; 85610; 85730; 87077; 87086; 87186; 87637; 93005; 93306; 93458; 94660; 96372; 99152; 99153; 99285; A9270; C1769; C1887; C1894; J1644; J1650; J2250; J2405; J3010; J3490; J7030; Q0163; Q9967

== ENCOUNTER 2024-08-28 12:26 | Inpatient (IN) | payer MEDICARE, MEDICAID, SELFPAY ==
[2024-08-28] VITALS (7 sets, daily range): BP systolic 101–140; BP diastolic 52–76; PULSE 97–111; RESP 17–22; TEMP 37.4; O2SAT 95–100; BMI 49.6; BMI 50.1
--- NOTE | 2024-08-28 12:43 | US_ITS ---
WS: [id number] ULTRASOUND SOFT TISSUES RIGHT upper extremity at the groin. HISTORY: Groin swelling post cath COMPARISON: None available. TECHNIQUE: 2-D and color Doppler imaging is submitted. Very heterogeneous mass is incompletely visualized in the RIGHT groin at the area of the palpable abnormality. Numerous echogenic echogenic septations with cystic and complex material. This is most consistent with a large hematoma undergone involution at the RIGHT groin. US/US soft tissue/extremity [id number] IMPRESSION: Post procedure hematoma at the RIGHT groin. Appearance suggests this is undergo ing evolution and not acute.
--- NOTE | 2024-08-28 12:43 | USCV_ITS ---
Jami Gandhi Age: 54 Gender: F : 1970 Exam Date: 08/28/2024 13:32 Ordering Phys: Gerson Waldron DO Technologist: CT Exam Location: [facility] [place]_ Indication: PROCEDURES: Venous duplex imaging was performed in only the right lower extremity. FINDINGS: Normal 2-D Doppler and augmentation and compressibility throughout the lower extremity venous structures. Additional imaging through the proximal calf veins also reveals no thrombus. Limited evaluation of the greater saphenous vein is patent with no thrombus. CONCLUSIONS Limited by body habitus. No DVT right lower extremity. No pseudoaneurysm seen. Dr. Gely Go DO (Electronically Signed) Final Date: 28 August 2024 14:15 S
--- NOTE | 2024-08-28 12:44 | XR_ITS ---
WS: [id number] Exam: XR chest 1V portable [id number] Date/Time of Exam: 08/28/2024 12:49 PM Reason For Exam: dyspnea/cough Comparison 08/21/2024. Lungs are fully inflated and clear. Normal cardiomediastinal silhouette. Previously noted right-sided PICC line has been removed. No pleural effusions. Unremarkable bony structures. XR/XR chest 1V portable [id number] IMPRESSION: 1. Negative chest.
--- NOTE | 2024-08-28 12:44 | ECG_ITS ---
[facility] Date: 2024-08-28 Pat Name: Jami Gandhi Department: Room: Gender: Female Home Demonstration Agent: : [id number] Requested By: Gerson Deutsch Order Number: [id number] Reading MD: BRIAN PIMENTEL Measurements Intervals Spring Rate: 96 P: 26 FL: 136 QRS: 29 QRSD: 105 T: 26 QT: 333 QTc: 422 Interpretive Statements SINUS RHYTHM NONSPECIFIC T-WAVE ABNORMALITY Compared to ECG 08/18/2024 15:20:37 T-wave abnormality now present Electronically Signed On 09-01-2024 23:43:36 HR SYSTEMS ANALYST by BRIAN PIMENTEL [email or web address]
--- NOTE | 2024-08-28 12:47 | W.ED.EXTPRO ---
HPI - Extremity Problem General: Chief complaint: Extremity Problem,Nontraumatic Stated complaint: post op (cath) complications Time Seen by Provider: 08/28/24 12:29 History of Present Illness: 54-year-old female presents emergency room complaining of right groin pain and discomfort. Patient had a cath 5 days ago she has a large swollen area with ecchymotic changes. Previous hospitalization reviewed. She is not having any further chest pain. She is having some right leg pain. Additionally patient has a suprapubic catheter and a sacral wound. Associated symptoms: Deny chest pain, fever(s) or rash Related Data Home Medications ?Medication ?Instructions ?Recorded ?Confirmed furosemide 20 mg tablet 20 mg PO BID PRN edima 04/12/20 08/28/24 gabapentin 600 mg tablet 600 mg PO BEDTIME 04/12/20 08/28/24 omeprazole 40 mg capsule,delayed 40 mg PO BEDTIME 04/12/20 08/28/24 release potassium chloride 10 mEq 20 - 30 meq PO BEDTIME 04/12/20 08/28/24 capsule,extended release venlafaxine 150 mg 150 mg PO BEDTIME 04/12/20 08/28/24 capsule,extended release 24 hr ascorbic acid (vitamin C) 1,000 mg 1,000 mg PO BID 10/27/20 08/28/24 tablet baclofen 20 mg tablet 20 mg PO BEDTIME 02/26/23 08/28/24 trazodone 50 mg tablet 25 mg PO BEDTIME 09/24/23 08/28/24 cefdinir 300 mg capsule 300 mg PO DAILY 06/15/24 08/28/24 warfarin 5 mg tablet See Rx Instructions .Route .COMPLEX 06/15/24 08/28/24 Held on 08/25/24. Instructions: Resume on 08/31/24. hold until you see Dr. Benson on Saturday albuterol sulfate 1.25 mg/3 mL 2.5 mg inhalation .Q4H PRN 08/18/24 08/28/24 solution for nebulization shortness of breath or wheezing Previous Rx's ?Medication ?Instructions ?Recorded enoxaparin 150 mg/mL subcutaneous 130 mg (0.8667 mL) SUBCUT Q12H 7 08/24/24 syringe days #12.134 mL isosorbide mononitrate 30 mg 30 mg PO DAILY 30 days #30 tabs 08/24/24 tablet,extended release 24 hr prothrombin time/INR test metr #30 ea 08/24/24 enoxaparin 60 mg/0.6 mL 120 mg (1.2 mL) SUBCUT Q12H 15 08/25/24 subcutaneous syringe (Lovenox) days #36 mL Allergies Allergy/AdvReac Type Severity Reaction Status Date / Time levofloxacin (From Levaquin) Allergy Unknown Unknown Verified 08/28/24 12:42 azithromycin Allergy Unknown Verified 08/28/24 12:42 Penicillins Allergy Unknown Verified 08/28/24 12:42 tramadol (From Ultram) Allergy Unknown Verified 08/28/24 12:42 vancomycin Allergy Unknown Verified 08/28/24 12:42 amoxicillin AdvReac Unknown ADR-Seizure Verified 08/28/24 12:42 Review of Systems Const: Denies: fever(s) or chills Card: Denies: chest pain Resp: Denies: dyspnea GI: Denies: abdominal pain : Denies: dysuria, urinary frequency or urinary urgency Musc: Denies: neck pain or back pain Skin/Breast: Denies: rash PFSH ED PFSH: Medical History History of angiography 2015 abdominal angiography and lower extremity angiography - normal abdominal aorta, pelvic vessels normal, all lower extremity vessels unremarkable, 3 vessel runoff below both knees History of cardiovascular stress test 07/2024 abnormalities on myocardial perfusion scanning History of sleep study 05/2017 - cpap auto-titrating 15-19 Wound of sacral region goes to wound care clinic Abscess of sacrum Parastomal hernia Ventral incisional hernia GERD (gastroesophageal reflux disease) Depression Fracture of fifth toe, right, closed History of sleep apnea sleep study in 2017 recommended auto-titrating cpap 15-[address] Chronic venous insufficiency of lower extremity PVD (peripheral vascular disease) History of DVT (deep vein thrombosis) (2004) and pulmonary embolism 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 Chronic osteomyelitis Neurogenic bladder Chronic cystitis Surgical History History of carpal tunnel release History of abdominal surgery (2007) excision of pelvic cysts complicated by bowel perforation, had multiple procedures including colostomy History of inferior vena caval filter placement (2004) still in place in 08/2024 History of incision and drainage (04/2019) sacral wound History of back surgery (2004) for spinal abscess x 2 History of hysterectomy (2003) S/P cholecystectomy S/P section Suprapubic catheter (~2004) following urology in [place] Family History Family/Other Diabetes Cancer CAD (coronary artery disease) Mother , at age 74 Sepsis Cancer melanoma Diabetes Father Heart disease Other Dementia Diabetes mellitus type 1 Hypertension Stroke Social History Smoking and tobacco/nicotine status: never used tobacco/nicotine Alcohol intake: never Substance/Drug Use: never Additional social history: daughter performs dressing changes twice per day, she and other family provide assistance as needed, wheelchair dependent, able to use transfer board Caregiver/support person: Yes Lives independently: Yes Marital status: Current occupational status: disabled Physical Exam Const: GENERAL APPEARANCE: cooperative ORIENTATION/CONSCIOUSNESS: Yes awake, Yes oriented to person, Yes oriented to place and Yes oriented to time HENMT: COMMON NORMALS: normocephalic, atraumatic and hearing grossly normal bilaterally HEAD & SCALP: normocephalic and atraumatic Resp: COMMON NORMALS: normal respiratory effort, No retractions, No use of accessory muscles and clear to auscultation bilaterally AUSCULTATION: clear to auscultation bilaterally Cardio: COMMON NORMALS: regular rhythm and No murmurs present (Cardio) RATE: tachycardic RHYTHM: regular rhythm GI: COMMON NORMALS: Soft to palpation and No hepatosplenomegaly present AUSCULTATION: Yes normoactive bowel sounds PALPATION: Yes Soft to palpation, No Tenderness to palpation present (GI), No Guarding due to palpation present (GI) and Yes No hepatosplenomegaly present Extremity: OTHER: Changes of chronic edema in the lower extremities. In the right groin patient has a large tender firm what appears to be hematoma it is nonpulsatile Neuro: SENSORIUM/ORIENTATION: Yes oriented to person, Yes oriented to place and Yes oriented to time Skin: COMMON NORMALS: no rashes or lesions noted GENERAL SKIN EXAM: no rashes or lesions noted Course Vital Signs: Vital signs: Vital Signs Temperature 97.7 F 08/29/24 01:27 Pulse Rate 124 H 08/29/24 05:15 Respiratory Rate 11 L 08/29/24 05:15 Blood Pressure 112/72 08/29/24 05:15 Pulse Oximetry 93 08/29/24 04:15 Oxygen Delivery Me thod Room Air 08/29/24 01:45 Oxygen Flow Rate 2 08/28/24 23:29 MDM - Extremity (Nontraumatic) Medical Decision Making Patient is mildly tachycardic, WBC elevated. Last time she was here her urine grew out resistant E. coli. Venous duplex leg negative for DVT the significant bulging in the groin appears to be a hematoma there is some septations according to Dr. Go she does not feel it is a pseudoaneurysm. She felt that there were no signs of cellulitis on the ultrasound this appeared to be more a large hematoma. Given her white count mild tachycardia and history of resistant UTI we will place on observation. Lactic acid is 2. Started patient on meropenem due to resistance from previous culture and allergies that she has to quinolones. Will need to follow hemoglobins regarding the hematoma. On 08/24 patient had a hemoglobin of 12.5 is 12 now. Patient was on warfarin but is on hold at the request of her primary care doctor. Discussed with Dr. Sorto will consult Dr. Hampton. Medical Records I reviewed the patient's medical records. Lab Data I reviewed the patient's lab results. 08/29/24 01:13 08/29/24 05:50 Radiology Impressions Soft Tissue Ultrasound 08/28/24 12:43 IMPRESSION: Post procedure hematoma at the RIGHT groin. Appearance suggests this is undergoing evolution and not acute. Chest X-Ray 08/28/24 12:44 IMPRESSION: 1. Negative chest. Abdomen/Pelvis CT 08/28/24 18:40 IMPRESSION: 1. Large right proximal thigh fluid collection (19.6 x 18.3 x 9.1 cm, at least 1.7 L total volume) presumed predominantly due to partially liquified hematoma. Clinical correlation recommended for any suspicion of superimposed infection wedge may be indistinguishable on imaging at this time. Additional 3.1 x 2.5 cm adjacent collection/hematoma. 2. Collapsed appearance of the IVC. Correlation for any evidence of intravascular volume depletion and hemodynamic stability/blood loss anemia recommended. 3. Distal IVC filter is unchanged in location. Other chronic and postsurgical findings detailed above. COMMENTS: For patients with an IVC filter, recommend assessment for a management plan for the patient's IVC filter. If there is no established management plan, recommend referral to an interventional clinician on a nonemergent basis for evaluation. COMMENT: THIS REPORT CONTAINS FINDINGS THAT MAY BE CRITICAL TO PATIENT CARE. The exam findings were verbally communicated by me to Dr. Sadler via telephone conference at 8:32 PM HEALTHCARE REPRESENTATIVE on 08/28/2024. The findings were acknowledged and understood. Laboratory Results WBC 13.08 10^3/uL (3.29-11.43) H 08/28/24 13:09 RBC 3.99 10^6/uL (3.85-5.65) 08/28/24 13:09 Hgb 12.00 g/dL (11.27-16.99) 08/28/24 13:09 Hct 38.9 % (36-47) 08/28/24 13:09 MCV 97.5 fl (85-98) 08/28/24 13:09 MCH 30.1 pg (27-33) 08/28/24 13:09 MCHC 30.8 g/dL (30-55) 08/28/24 13:09 RDW 14.0 % (12.1-15.1) 08/28/24 13:09 Plt Count 617 10^3/cmm (157-399) H 08/28/24 13:09 MPV 10.3 fL (7.4-10.4) 08/28/24 13:09 Neut % (Auto) 77.8 % 08/28/24 13:09 Lymph % (Auto) 11.5 % 08/28/24 13:09 [place] % (Auto) 7.7 % 08/28/24 13:09 Eos % (Auto) 1.5 % 08/28/24 13:09 Baso % (Auto) 0.5 % 08/28/24 13:09 Neut # (Auto) 10.16 10^3/uL (1.8-7.7) H 08/28/24 13:09 Lymph # (Auto) 1.5 10^3/uL (0.8-4.8) 08/28/24 13:09 [place] # (Auto) 1.0 10^3/uL (0.2-0.9) H 08/28/24 13:09 Eos # (Auto) 0.2 10^3/uL (0.0-0.8) 08/28/24 13:09 Baso # (Auto) 0.1 10^3/uL (0.0-0.1) 08/28/24 13:09 Nucleated RBC % (auto) 0 % 08/28/24 13:09 Nucleated RBCs # 0.0 /100WBC 08/28/24 13:09 ESR 62 mm/hr (0-15) H 08/28/24 13:09 Sodium 134 mmol/L (136-145) L 08/28/24 13:09 Potassium 4.4 mmol/L (3.5-5.1) 08/28/24 13:09 Chloride 96 mmol/L (98-107) L 08/28/24 13:09 Carbon Dioxide 25 mmol/L (22-29) 08/28/24 13:09 Anion Gap 17.4 (5-19) 08/28/24 13:09 BUN 19 mg/dL (6-20) 08/28/24 13:09 Creatinine 0.8 mg/dL (0.5-0.9) 08/28/24 13:09 GFR Calculation 74.2 mL/min (90-130) L 08/28/24 13:09 Glucose 130 mg/dL (65-115) H 08/28/24 13:09 Calculated Osmolality 282 mOsm/kg (285-295) L 08/28/24 13:09 Lactic Acid 2.0 mmol/L (0.5-2.2) 08/28/24 17:20 Calcium 9.3 mg/dL (8.5-10.5) 08/28/24 13:09 Total Bilirubin 0.4 mg/dL (0.15-1.2) 08/28/24 13:09 AST 26 U/L (0-32) 08/28/24 13:09 ALT 39 U/L (0-33) H 08/28/24 13:09 Alkaline Phosphatase 103 U/L (35-105) 08/28/24 13:09 Troponin T Baseline 10 ng/L (0-10) 08/28/24 13:09 Troponin T 120 Minute 8.62 ng/L (0-10) 08/28/24 16:32 Delta Troponin T -1.38 ABS# (0-10) L 08/28/24 16:32 C-Reactive Protein 60.5 mg/L (0.0-4.9) H 08/28/24 13:09 NT-Pro-B Natriuret Pep 38 pg/mL (0-125) 08/28/24 13:09 Total Protein 7.8 g/dL (6.6-8.7) 08/28/24 13:09 Albumin 3.8 g/dL (3.5-5.2) 08/28/24 13:09 Globulin 4.0 g/dL (1.3-4.6) 08/28/24 13:09 Procalcitonin 0.08 ng/mL (0-0.5) 08/28/24 13:09 Urine Color Dark yellow (Yellow) A 08/28/24 14:31 Urine Appearance Turbid (CLEAR) A 08/28/24 14:31 Urine pH 5.5 (5-7) 08/28/24 14:31 Ur Specific [place] 1.034 (1.005-1.030) H 08/28/24 14:31 Urine Protein 1+ (Negative) A 08/28/24 14:31 Urine Glucose (UA) Negative (Normal) 08/28/24 14:31 Urine Ketones Trace (Negative) 08/28/24 14:31 Urine Blood Non-haemolysed trace (Negative) 08/28/24 14:31 Urine Nitrate Positive (Negative) A 08/28/24 14:31 Urine Bilirubin Negative (Negative) 08/28/24 14:31 Urine Urobilinogen 1.0 mg/dL (Negative) 08/28/24 14:31 Ur Leukocyte Esterase 2+ (Negative) A 08/28/24 14:31 Urine RBC 10-15 /hpf (0-2) H 08/28/24 14:31 Urine WBC 10-15 /hpf (0-5) H 08/28/24 14:31 Ur Squamous Epith Cells 0-4 /hpf (0-5) H 08/28/24 14:31 Amorphous Sediment Not Reportable 08/28/24 14:31 Urine Bacteria 2+ /hpf (NONE) H 08/28/24 14:31 Hyaline Casts 0-4 /lpf H 08/28/24 14:31 Fine Granular Casts 0-4 /lpf H 08/28/24 14:31 Urine Yeast 1+ /hpf H 08/28/24 14:31 Influenza A (PCR) Negative (Negative) 08/28/24 14:31 Influenza Type B (PCR) Negative (Negative) 08/28/24 14:31 RSV (PCR) Negative (Negative) 08/28/24 14:31 SARS-CoV-2 (PCR) Negative (Negative) 08/28/24 14:31 All radiology interpretation(s) finalized by discharge Discharge Plan Discharge Patient Disposition: Placed in Observation Admit Provider: Mendel Sorto Clinical Impression: Cystitis, Groin hematoma, History of DVT (deep vein thrombosis) Coding Level of Care Code 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
--- NOTE | 2024-08-28 13:03 | ECG_ITS ---
[facility] 2024-08[facility]28 Pat Name: Jami Gandhi Department: Room: Gender: Female Talent Acquisition Lead: : 1970 Requested By: Gerson Deutsch Order Number: [id number] Reading MD: BRIAN PIMENTEL Measurements Intervals [place] Rate: 95 P: 26 SC: 150 QRS: 29 QRSD: 97 T: 38 QT: 327 QTc: 412 Interpretive Statements SINUS RHYTHM NONSPECIFIC T-WAVE ABNORMALITY Compared to ECG 08/28/2024 12:39:23 No significant changes Electronically Signed On 09-01-2024 23:43:34 [facility] by BRIAN PIMENTEL [id number]
[2024-08-28 13:15] LABS: Basophils # 0.1 10^3/uL (0.0-0.1); Basophils % 0.5 %; Eosinophils # 0.2 10^3/uL (0.0-0.8); Eosinophils % 1.5 %; Hematocrit 38.9 % (36-47); Lymphocytes # 1.5 10^3/uL (0.8-4.8); Lymphocytes % 11.5 %; Mean Corpuscular HGB Conc 30.8 g/dL (30-55); Mean Corpuscular Hemoglobin 30.1 pg (27-33); Mean Corpuscular Volume 97.5 fl (85-98); Mean Platelet Volume 10.3 fL (7.4-10.4); Monocytes % 7.7 %; Neutrophils # 10.16 10^3/uL (1.8-7.7); Neutrophils % 77.8 %; Nucleated Red Blood Cells % 0 %; Platelet Count 617 10^3/cmm (157-399); Red Blood Count 3.99 10^6/uL (3.85-5.65); White Blood Count 13.08 10^3/uL (3.29-11.43)
[2024-08-28 13:34] LABS: Troponin(5th) Baseline 10 ng/L (0-10)
[2024-08-28 13:48] LABS: Alanine Aminotransferase 39 U/L (0-33); Albumin Level 3.8 g/dL (3.5-5.2); Alkaline Phosphatase 103 U/L (35-105); Anion Gap 17.4 (5-19); Aspartate Amino Transferase 26 U/L (0-32); Blood Urea Nitrogen 19 mg/dL (6-20); Calcium 9.3 mg/dL (8.5-10.5); Carbon Dioxide 25 mmol/L (22-29); Chloride 96 mmol/L (98-107); Creatinine Clr Calc Pharmacy 101.9463; Glomerular Filtration Rate 74.2 mL/min (90-130); Glucose 130 mg/dL (65-115); NT Pro B Type Natriuretic Pept 38 pg/mL (0-125); Osmolality Calculated 282 mOsm/kg (285-295); Potassium 4.4 mmol/L (3.5-5.1); Sodium 134 mmol/L (136-145); Total Bilirubin 0.4 mg/dL (0.15-1.2); Total Protein 7.8 g/dL (6.6-8.7)
[2024-08-28 14:43] LABS: Bilirubin Urine Negative (Negative); Blood Urine Non-haemolysed trace (Negative); Glucose Urine UA Negative (Normal); Ketones Urine Trace (Negative); Leukocyte Esterase Urine 2+ (Negative); Nitrate Urine Positive (Negative); Protein Urine 1+ (Negative); Urine Appearance Turbid (CLEAR); Urine Color Dark Yellow (Yellow); pH Urine 5.5 (5-7)
--- NOTE | 2024-08-28 14:44 | ECG_ITS ---
[facility] Test Date: 2024-08-28 Pat Name: Jami Gandhi Department: Room: Gender: Female Biometrics Head: : 1970 Requested By: Gerson Deutsch Order Number: [id number] Reading MD: BRIAN PIMENTEL Measurements Intervals [place] Rate: 105 P: 27 VA: 138 QRS: 40 QRSD: 99 T: 16 QT: 307 QTc: 406 Interpretive Statements SINUS TACHYCARDIA NONSPECIFIC ST & T-WAVE ABNORMALITY ABNORMAL RHYTHM ECG Compared to ECG 08/28/2024 13:03:25 Sinus rhythm no longer present T-wave abnormality still present Electronically Signed On 09-01-2024 23:52:51 FLAME CUTTING MACHINE OPERATOR HELPER by BRIAN PIMENTEL [id number]
[2024-08-28] MEDS: HYDROcodone-acetaminophen 5-325 mg Tablet 1 TAB PO (15:17)
[2024-08-28 15:20] LABS: Influenza A NEGATIVE (Negative); Influenza B NEGATIVE (Negative); Respiratory Syncytial Virus Ce NEGATIVE (Negative); SARS-CoV-2 PCR NEGATIVE (Negative)
[2024-08-28 15:38] LABS: Add Urine Culture? Yes; Add Urine Microscopic? YES; Bacteria Urine 2+ /hpf; Fine Granular Casts Urine 0-4 /lpf; Hyaline Casts Urine 0-4 /lpf; Specific Gravity, Urine 1.034 (1.005-1.030); Squamous Epithelial Cell Urine 0-4 /hpf (0-5); UA Manual Slide Review YES; UA Slide Review UA Slide Review Perf
[2024-08-28 16:57] LABS: Troponin 5 2HR 8.62 ng/L (0-10)
[2024-08-28 16:58] LABS: Troponin 5 2HR Delta -1.38 ABS# (0-10)
[2024-08-28] MEDS: MEROPENEM 2,000 MG in sodium chloride 0.9% (plus) 50 ML 100 MG IV (18:26)
--- NOTE | 2024-08-28 18:40 | CTR_ITS ---
PROCEDURE INFORMATION: Exam: CT Abdomen And Pelvis With Contrast Exam date and time: 08/28/2024 7:22 PM Age: 54 years old Clinical indication: Other: Groin hematoma; Abdominal pain; Localized; Prior surgery; Surgery date: <1 month; Surgery type: Cardiac cath 08/18/2024. Gb. Ivc filter. Bowel. Hysterectomy. Csection. Suprapubic cath. C/O RT groin pain with larg hematoma to RT groin and thigh post cardiac cath 08/18/2024. ; Additional info: R femoral/groin hematoma, cellulitis, concern for infection TECHNIQUE: Imaging protocol: Computed tomography of the abdomen and pelvis with contrast. Radiation optimization: All CT scans at this facility use at least one of these dose optimization techniques: automated exposure control; mA and/or kV adjustment per patient size (includes targeted exams where dose is matched to clinical indication); or iterative reconstruction. Contrast material: OMNI 350; Contrast volume: 100 ml; Contrast route: INTRAVENOUS (IV); COMPARISON: CT abdomen pelvis w con* [id number] 03/18/2024 9:05 AM RADIATION DOSE METRICS: Total DLP (mGy-cm): 1509.81 FINDINGS: Tubes, catheters and devices: Suprapubic urinary catheter again noted. Liver: Normal. No mass. Gallbladder and biliary ducts: Cholecystectomy clips. No biliary dilatation. Pancreas: Mild diffuse fatty atrophy. No ductal dilation. Spleen: Normal. No splenomegaly. Adrenal glands: Normal. No mass. Kidneys and ureters: Normal. No hydronephrosis. Stomach and bowel: Large gap in the left lower quadrant anterior abdominal wall (series 5, image 40) measuring up to 7.3 cm with herniation of nonobstructed partially imaged small and large bowel loops, similar to the prior study. Moderate amount retained colonic stool. No bowel dilatation. Prior partial colectomy rectal stump again noted. Reported left lower quadrant colostomy is mostly outside the field of view. Appendix: No evidence of appendicitis. Intraperitoneal space: Unremarkable. No free air. No significant fluid collection. Vasculature: The IVC is narrowed. A filter is noted in the distal IVC similar to the prior study. Lymph nodes: Unremarkable. No enlarged lymph nodes. Urinary bladder: Unremarkable as visualized. Reproductive: Surgically absent uterus. Bones/joints: Moderate multilevel lumbar and lower thoracic spondylosis. Grade 1 anterolisthesis of L5 over S1 due to pars defects again noted. Chronic erosion of the tip of the coccyx with osseous sclerosis again demonstrated. Overlying soft tissue gas and thickening/abscess maximal 2.4 x 1.3 cm has decreased from 03/18/2024. Soft tissues: Large hematoma of the anterior/lateral proximal right thigh measuring up to 19.6 x 18.3 x 9.1 cm. The hematoma appears to be centrally liquified. Moderate overlying skin and subcutaneous edema and stranding additional adjacent 3.1 x 2.5 cm nodule versus hematoma (series 5, image 89) in the anterior proximal thigh, new from 03/18/2024. Postsurgical changes again noted in the perineum. Surgical scar in the infraumbilical anterior abdominal wall again demonstrated. CT/CT abdomen pelvis w con* [id number] IMPRESSION: 1. Large right proximal thigh fluid collection (19.6 x 18.3 x 9.1 cm, at least 1.7 L total volume) presumed predominantly due to partially liquified hematoma. Clinical correlation recommended for any suspicion of superimposed infection wedge may be indistinguishable on imaging at this time. Additional 3.1 x 2.5 cm adjacent collection/hematoma. 2. Collapsed appearance of the IVC. Correlation for any evidence of intravascular volume depletion and hemodynamic stability/blood loss anemia recommended. 3. Distal IVC filter is unchanged in location. Other chronic and postsurgical findings detailed above. COMMENTS: For patients with an IVC filter, recommend assessment for a management plan for the patient's IVC filter. If there is no established management plan, recommend referral to an interventional clinician on a nonemergent basis for evaluation. COMMENT: THIS REPORT CONTAINS FINDINGS THAT MAY BE CRITICAL TO PATIENT CARE. The exam findings were verbally communicated by me to Dr. Sadler via telephone conference at 8:32 PM PLY BANDER on 08/28/2024. The findings were acknowledged and understood.
--- NOTE | 2024-08-28 18:44 | ECG_ITS ---
[facility] Date: 2024-08-28 Pat Name: Jami Gandhi Department: Room: [facility] Gender: Female Senior Media Director: : 1970 Requested By: Gerson Deutsch Order Number: [id number] Reading MD: BRIAN PIMENTEL Measurements Intervals [place] Rate: 110 P: 20 VA: 140 QRS: 34 QRSD: 103 T: 24 QT: 303 QTc: 411 Interpretive Statements SINUS TACHYCARDIA ABNORMAL RHYTHM ECG Compared to ECG 08/28/2024 14:44:59 T-wave abnormality no longer present Electronically Signed On 09-01-2024 23:51:55 NITROGLYCERIN NEUTRALIZER by BRIAN PIMENTEL [id number]
--- NOTE | 2024-08-28 18:48 | PM.HP ---
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 Currently patient is alert oriented x 3, following all commands, daughters at bedside, she tells me that since leaving the hospital she has had fatigue, malaise, chills, she started developing swelling, tenderness, erythema around her right groin, it started to enlarge and spread along her pannus down to her right lateral surface and along the right femur. Denies any chest pain, palpitations, no lightheadedness. She does report she has a chronic sacral decubitus ulcer. And also has a history of recurrent UTIs Review of Systems Const: Reports: chills, fatigue and malaise; Denies: fever(s) Card: Denies: chest pain Resp: Denies: dyspnea GI: Denies: abdominal pain or nausea : Reports: flank pain Medications/Allergies Home Medications ?Medication ?Instructions ?Recorded ?Confirmed ?Last Taken ?Type furosemide 20 mg tablet 20 mg PO BID PRN edima 04/12/20 08/28/24 06/14/24 History gabapentin 600 mg tablet 600 mg PO BEDTIME 04/12/20 08/28/24 08/17/24 History omeprazole 40 mg capsule,delayed 40 mg PO BEDTIME 04/12/20 08/28/24 08/17/24 History release potassium chloride 10 mEq 20 - 30 meq PO BEDTIME 04/12/20 08/28/24 08/17/24 History capsule,extended release venlafaxine 150 mg 150 mg PO BEDTIME 04/12/20 08/28/24 08/17/24 History capsule,extended release 24 hr ascorbic acid (vitamin C) 1,000 mg 1,000 mg PO BID 10/27/20 08/28/24 08/17/24 History tablet baclofen 20 mg tablet 20 mg PO BEDTIME 02/26/23 08/28/24 08/17/24 History trazodone 50 mg tablet 25 mg PO BEDTIME 09/24/23 08/28/24 08/17/24 History cefdinir 300 mg capsule 300 mg PO DAILY 06/15/24 08/28/24 08/17/24 History warfarin 5 mg tablet See Rx Instructions .Route .COMPLEX 06/15/24 08/28/24 08/17/24 History Held on 08/25/24. Instructions: Resume on 08/31/24. hold until you see Dr. Benson on Saturday albuterol sulfate 1.25 mg/3 mL 2.5 mg inhalation .Q4H PRN 08/18/24 08/28/24 Unknown History solution for nebulization shortness of breath or wheezing enoxaparin 150 mg/mL subcutaneous 130 mg (0.8667 mL) SUBCUT Q12H 7 08/24/24 08/28/24 Unknown Rx syringe days #12.134 mL isosorbide mononitrate 30 mg 30 mg PO DAILY 30 days #30 tabs 08/24/24 08/28/24 Unknown Rx tablet,extended release 24 hr prothrombin time/INR test metr #30 ea 08/24/24 08/28/24 Unknown Rx enoxaparin 60 mg/0.6 mL 120 mg (1.2 mL) SUBCUT Q12H 15 08/25/24 08/28/24 Unknown Rx subcutaneous syringe (Lovenox) days #36 mL Allergies Allergy/AdvReac Type Severity Reaction Status Date / Time levofloxacin (From Levaquin) Allergy Unknown Unknown Verified 08/28/24 12:42 azithromycin Allergy Unknown Verified 08/28/24 12:42 Penicillins Allergy Unknown Verified 08/28/24 12:42 tramadol (From Ultram) Allergy Unknown Verified 08/28/24 12:42 vancomycin Allergy Unknown Verified 08/28/24 12:42 amoxicillin AdvReac Unknown ADR-Seizure Verified 08/28/24 12:42 PFSH Acute PFSH: Medical History History of angiography 2015 abdominal angiography and lower extremity angiography - normal abdominal aorta, pelvic vessels normal, all lower extremity vessels unremarkable, 3 vessel runoff below both knees History of cardiovascular stress test 07/2024 abnormalities on myocardial perfusion scanning History of sleep study 05/2017 - cpap auto-titrating 15-19 Wound of sacral region goes to wound care clinic Abscess of sacrum Parastomal hernia Ventral incisional hernia GERD (gastroesophageal reflux disease) Depression Fracture of fifth toe, right, closed History of sleep apnea sleep study in 2017 recommended auto-titrating cpap 15-[address] Chronic venous insufficiency of lower extremity PVD (peripheral vascular disease) History of DVT (deep vein thrombosis) (2004) and pulmonary embolism 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 Chronic osteomyelitis Neurogenic bladder Chronic cystitis Surgical History History of carpal tunnel release History of abdominal surgery (2007) excision of pelvic cysts complicated by bowel perforation, had multiple procedures including colostomy History of inferior vena caval filter placement (2004) still in place in 08/2024 History of incision and drainage (04/2019) sacral wound History of back surgery (2004) for spinal abscess x 2 History of hysterectomy (2003) S/P cholecystectomy S/P section Suprapubic catheter (~2004) following urology in [place] Family History Family/Other Diabetes Cancer CAD (coronary artery disease) Mother , at age 74 Sepsis Cancer melanoma Diabetes Father Heart disease Other Dementia Diabetes mellitus type 1 Hypertension Stroke Social History Smoking and tobacco/nicotine status: never used tobacco/nicotine Alcohol intake: never Substance/Drug Use: never Additional social history: daughter performs dressing changes twice per day, she and other family provide assistance as needed, wheelchair dependent, able to use transfer board Caregiver/support person: Yes Lives independently: Yes Marital status: Current occupational status: disabled Vitals/I&O/Wt Last Vital Signs Temp 99.4 F 08/28/24 12:30 Pulse 110 H 08/28/24 18:43 Resp 19 H 08/28/24 18:43 BP 109/76 08/28/24 16:00 Pulse Ox 100 08/28/24 18:43 O2 Del Method Room Air 08/28/24 12:30 Weight last 48 hrs Weight 127.006 kg Physical Exam Const: COMMON NORMALS: no acute distress and patient oriented x3 Eye: COMMON NORMALS: Equal, round and reactive pupils present and EOMs intact bilaterally Resp: COMMON NORMALS: normal respiratory effort, No retractions, No use of accessory muscles and clear to auscultation bilaterally AUSCULTATION: clear to auscultation bilaterally Cardio: COMMON NORMALS: no JVD, regular rate, regular rhythm, S1 normal heart sound present and S2 normal heart sound present RATE: regular rate RHYTHM: regular rhythm HEART SOUNDS: S1 normal heart sound present and S2 normal heart sound present GI: COMMON NORMALS: Normal to inspection, nondistended, normoactive bowel sounds present, Soft to palpation and non-tender : OTHER: Right groin, erythema, swelling, tenderness, warmth, spreading along the right pannus, along right thigh, towards femur Extremity: COMMON NORMALS: no calf tenderness and no pedal edema Neuro: COMMON NORMALS: patient oriented x3 Psych: COMMON NORMALS: mental status grossly normal Skin: NARRATIVE SKIN EXAM: Has a suprapubic catheter in place Right groin, catheter insertion site, site looks erythematous, tender, no drainage Sepsis: Is patient septic: Yes Focused sepsis exam performed: Yes Focused sepsis exam: DP PT pulses palpable, cap refill greater than 2 seconds, no mottling Date exam was performed: 08/28/24 Time exam was performed: 18:53 Data 08/28/24 13:09 08/28/24 13:09 Micro: Microbiology 08/28/24 17:23 Blood Culture - Preliminary Blood SPECIMEN COLLECTED 08/28/24 17:20 Blood Culture - Preliminary Blood SPECIMEN COLLECTED A&P Assessment and plan (1) Sepsis: (2) Suprapubic catheter: (3) History of DVT (deep vein thrombosis): (4) Colostomy in place: (5) Cystitis: (6) Wound of sacral region: Qualifiers: Encounter type: subsequent encounter Qualified Code(s): S31.000D - Unspecified open wound of lower back and pelvis without penetration into retroperitoneum, subsequent encounter (7) SAVAGE on CPAP: (8) Hematoma of right inguinal region: (9) Cellulitis: Plan Sepsis, sepsis features met, given source of infection, tachycardia leukocytosis, -Multiple sources of infection -Right groin hematoma site concern for infected hematoma, cellulitis -History of suprapubic catheter, with UTI -Sacral decubitus ulcer -Follow-up blood cultures -Urine culture History of suprapubic catheter, for neurogenic bladder -Complicated urinary tract infection -Start meropenem -Following cultures, blood cultures History of sacral decubitus ulcer -Wound care -CT scan abdomen pelvis with IV contrast -ESR, CRP, Pro-Orlin Right groin hematoma -With concerns for infected hematoma -With cellulitis Plan -CT scan abdomen pelvis with IV contrast -ESR, CRP, Pro-Orlin -Zyvox -Meropenem -Will kalpesh on site nurse closely History of DVT and PE -History of IVC filter placement -Patient tells me she stopped taking Coumadin is on therapeutic Lovenox -Hold anticoagulant therapy -Check INR History of CAD -No chest pain complaints, monitor Morbid obesity Obstructive sleep apnea on CPAP Full code SCDs for DVT prophylaxis PDMP PDMP Reviewed: Not Reviewed Attestations Medical Necessity Statement*: Patient requires hospitalization, inpatient, greater than 2 midnights for sepsis secondary to right groin hematoma concerns for infected hematoma, cellulitis with concerns for UTI, sacral decubitus ulcer, pain Diagnoses Sepsis A41.9 Suprapubic catheter Z93.59 History of DVT (deep vein thrombosis) Z86.[address] Z93.3 Cystitis N30.90 Wound of sacral region, subsequent encounter S31.000D Encounter type: subsequent encounter SAVAGE on CPAP G47.33 Hematoma of right inguinal region S30.1XXA Cellulitis L03.90
[2024-08-28] MEDS: iohexol 350 mg/mL 500 mL Btl (per mL) IV (19:32)
[2024-08-28] MEDS: linezolid premix 600 MG/300 ML PREMIX 300 MG IV (19:54)
[2024-08-28 20:41] LABS: C Reactive Protein 60.5 mg/L (0.0-4.9)
[2024-08-28 20:47] LABS: Erythrocyte Sedimentation Rate 62 mm/hr (0-15)
[2024-08-28 20:48] LABS: Procalcitonin 0.08 ng/mL (0-0.5)
--- NOTE | 2024-08-28 20:52 | PC.NURSE ---
MADE ACCEPTING DR AWARE OF RADIOLOGY CONCERN FOR HYPOVOLEMIA, AND LOW BP. DR ANDRADE STATED TO TAKE PT TO [facility].
[2024-08-28 21:23] LABS: Glucose Point of Care 225 mg/dL (70-110)
[2024-08-28] MEDS: gabapentin 300 mg Capsule 600 MG PO (22:11)
[2024-08-28] MEDS: venlafaxine ER (24HR) 75 mg Capsule 150 MG PO (22:11)
[2024-08-28] MEDS: baclofen 10 mg Tablet 20 MG PO (22:11)
[2024-08-28] MEDS: pantoprazole 40 mg SDV IVP (22:11)
[2024-08-28] MEDS: trazodone 50 mg Tablet 25 MG PO (22:11)
[2024-08-28 23:34] LABS: INR 1.01 (0.8-1.2)
[2024-08-28 23:35] LABS: Partial Thromboplastin Time 31.7 SECONDS (23.9-36.7)
[2024-08-28 23:51] LABS: Troponin 5 6HR 18.61 ng/L (0-10); Troponin 5 6HR Delta 8.61 ng/L (0-12)
[2024-08-29] VITALS (74 sets, daily range): BP systolic 88–112; BP diastolic 58–74; PULSE 107–143; RESP 9–34; TEMP 35.2–37.2; O2SAT 74–100
[2024-08-29] MEDS: norepinephrine 4 MG/250 ML BAG 30 MG IV (01:05)
[2024-08-29 01:27] LABS: Hematocrit 33.3 % (36-47)
--- NOTE | 2024-08-29 01:30 | PC.NURSE ---
BP not reading on vitals machine for midnight vitals, this nurse unable to get manual BP. Nithya Rhoades RN able to faintly hear BP systolic at 80. Dr Smith notified, Dr Smith put in orders to transfer down to ICU bed 6 and to start a Levophed drip. Cherise RN from ICU came up to start patient on levophed drip. Report called to Faizan DILLARD in icu, patient transferred down to ICU with belongings. Daughter at bedside and updated on patients condition.
--- NOTE | 2024-08-29 03:32 | PC.NURSE ---
Contacted Dr. Smith in reference to patient BP. Thus far, nursing staff has been unable to obtain BP given several methods using automatic, auscultation and doppler. Staff has been attempting to get a BP read for approximately an hour. Informed Dr. Smith levophed is currently running at 14mcg/min, patient is answering questions, but not staying consistently awake. Advised an arterial line, or alternate method of BP monitoring would be required for safely administering levophed at this rate. Received orders to titrate levophed down to a goal of 10mcg/min based on patient's ability to answer questions appropriately. Dr. Smith stated: That is for anesthesia in the morning.
[2024-08-29] MEDS: meropenem 500 mg SDV IVP (03:48)
--- NOTE | 2024-08-29 05:10 | ANES.PROC ---
Anesthesia Procedures Procedure/Date: 08/29/24 Arterial Line: Time Out Performed: Yes Consent: requested by attending/covering physician, risks and benefits reviewed and patient agrees to proceed Technique Used: guide wire technique Post-Procedure: dry sterile dressing placed Patient Tolerated Procedure: well Complications: none Site: left and radial Additional Comments: Ultrasound guided. Discussed procedure with patient prior to procedure start and answered all questions, she states she understands, she gave verbal consent and was unable to physically sign her consent form, this was witnessed by the RN caring for her.
[2024-08-29] MEDS: ondansetron 2 mg/ML SDV 2 mL 4 MG IVP (05:43)
[2024-08-29 06:09] LABS: Basophils # 0.1 10^3/uL (0.0-0.1); Basophils % 0.4 %; Eosinophils % 0.1 %; Hematocrit 27.4 % (36-47); Lymphocytes # 3.7 10^3/uL (0.8-4.8); Lymphocytes % 9.7 %; Mean Corpuscular HGB Conc 31.4 g/dL (30-55); Mean Corpuscular Hemoglobin 31.2 pg (27-33); Mean Corpuscular Volume 99.3 fl (85-98); Mean Platelet Volume 10.4 fL (7.4-10.4); Monocytes # 3.5 10^3/uL (0.2-0.9); Monocytes % 9.1 %; Neutrophils # 29.89 10^3/uL (1.8-7.7); Neutrophils % 78.7 %; Nucleated Red Blood Cells # 0.1 /100WBC; Nucleated Red Blood Cells % 0.4 %; Platelet Count 1418 10^3/cmm (157-399); Red Blood Count 2.76 10^6/uL (3.85-5.65); Red Cell Distribution Width 14.5 % (12.1-15.1)
[2024-08-29] MEDS: linezolid premix 600 MG/300 ML PREMIX 300 MG IV ×2 (06:27→18:42)
[2024-08-29 06:39] LABS: Alanine Aminotransferase 40 U/L (0-33); Albumin Level 3.3 g/dL (3.5-5.2); Alkaline Phosphatase 97 U/L (35-105); Anion Gap 25.4 (5-19); Aspartate Amino Transferase 31 U/L (0-32); Blood Urea Nitrogen 28 mg/dL (6-20); Calcium 8.5 mg/dL (8.5-10.5); Carbon Dioxide 16 mmol/L (22-29); Chloride 100 mmol/L (98-107); Creatinine Clr Calc Pharmacy 43.2089; Globulin 3.3 g/dL (1.3-4.6); Glomerular Filtration Rate 27.3 mL/min (90-130); Glucose 262 mg/dL (65-115); Magnesium 1.9 mg/dL (1.7-2.3); Osmolality Calculated 297 mOsm/kg (285-295); Phosphorus 5.6 mg/dL (2.5-4.5); Potassium 5.4 mmol/L (3.5-5.1); Sodium 136 mmol/L (136-145); Total Bilirubin 0.3 mg/dL (0.15-1.2); Total Protein 6.6 g/dL (6.6-8.7)
[2024-08-29] MEDS: norepinephrine 4 MG/250 ML BAG 52.5 MG IV ×2 (06:48→10:37)
[2024-08-29 07:07] LABS: White Blood Count 37.95 10^3/uL (3.29-11.43)
[2024-08-29 07:47] LABS: ABG PCO2 34.3 mmHg (35-45); ABG PH Result 7.29 (7.35-7.45); Arterial Blood Gas Hematocrit 25.3 % (37-47); Blood Gas Operator Identificat GD; Blood Gas Sample Site Not specified; Blood Gas Sample Type Arterial; Carboxyhemoglobin 0.9 %THgb (0.4-20.1); HCO3 ABG 16.6 mmol/L (22-26); HGB O2 Sat 97.3 % (95-100); Ionized Calcium Level - ABG 1.1 mmol/L (1.1-1.4); Methemoglobin 0.9 % (0.4-1.5); Oxygen Device NC; Oxygen Saturation ABG 99.1; PO2 FiO2 Ratio Arterial Blood 478; Potassium Level - ABG 4.8 mmol/L (3.5-5.0); Total Hemoglobin 8.2 g/dL (12-16)
--- NOTE | 2024-08-29 08:24 | XRR_ITS ---
PROCEDURE INFORMATION: Exam: XR Chest Exam date and time: 08/29/2024 8:52 AM Age: 54 years old Clinical indication: Other vascular access device placement or adjustment; Central line, tunnelled; Additional info: Central line placement TECHNIQUE: Imaging protocol: Radiologic exam of the chest. Views: 1 view. COMPARISON: CR XR chest 1V portable [id number] 08/28/2024 12:49 PM FINDINGS: Tubes, catheters and devices: Right IJ catheter terminates in the right atrium. Lungs: Unremarkable. No consolidation. Pleural spaces: Unremarkable. No pleural effusion. No pneumothorax. Heart/Mediastinum: Unremarkable. No cardiomegaly. Bones/joints: Unremarkable. XR/XR chest 1V portable [id number] IMPRESSION: No acute findings.
--- NOTE | 2024-08-29 08:46 | USR_ITS ---
PROCEDURE INFORMATION: Exam: US Retroperitoneal, Complete, Kidneys, Aorta, IVC. Exam date and time: 08/29/2024 1:45 PM Age: 54 years old Clinical indication: Abnormal findings; Abnormal lab test; Abnormal kidney function lab tests; Additional info: Rufino TECHNIQUE: Imaging protocol: Real-time ultrasound of the retroperitoneum with image documentation. Complete exam focused on the bilateral kidneys, aorta, and inferior vena cava. COMPARISON: 1. US abdomen limited [id number] 08/04/2024 7:[address] abdomen pelvis w con* [id number] 08/28/2024 7:22 PM FINDINGS: Unable to visualize bilateral kidneys secondary to body habitus. US/US renal BI* [id number] IMPRESSION: Unable to visualize bilateral kidneys secondary to body habitus.
--- OUTSIDE RECORDS SUMMARY | 2024-08-29 08:49 | XMS_ITS | Encounter Summary ---
Author Organization [facility] Address [address] [place] [address] Care Team Providers Care Maintenance Clerk Name Role Phone Jose Bowers MD Primary Care Provider Unavailab le Encounter Details Date Type Department Care Team (Late st Contact Info) Description 10/01/2005 Outpatient Historical [facility] [place] [address] [place] [id number] Jose Bwoers MD [address] [place] [address] Paraplegia (CMS/HCC) (Primary Dx); Neurogenic Bladder, NOS Social History Tobacco Use Types Packs/Day Years Used Date Smoking Tobacco: Never Assessed Comments Unknown Sex and Gender Information Value Date Recorded Sex Assigned at Not on file 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
--- OUTSIDE RECORDS SUMMARY | 2024-08-29 08:49 | XMS_ITS | Patient Health Record ---
Author Organization [facility] Address [address] [place] [address] Care Team Providers Care Hogshead Dumper Name Role Phone Aris Tavarez Primary Care Provider Unavailab Ari Leal Unavailable [phone] Allergies Allergen (clinical drug ingredient) Drug/Non Drug Allergy documented on EMR Reaction Allergy Type Onset Date Status Azithromycin Unknown Drug Allergy Acti ve tramadol Ultram Unknown Drug Allergy Active azithromycin Zithromax Unknown Drug Allergy Acti ve Adhesive Unknown Allergy Active Penicillin Unknown Drug Allergy Active vancomycin Vancomycin Unknown Drug Allergy Activ e Reason For Referral No Information Medications Medication SIG (Take, Route, Frequency, Duration) Notes Start Date End Date Status Warfarin Sodium 5 MG 1 tablet Orally Onc e a day Active Cefdinir 300 MG as directed Orally BID [facility] 01/22/2023 Active Baclofen 20 MG 1 tablet Administer without regards to meals as needed Orally Twice a day Active Vitamin C 1000 MG 1 tablet Orally Once a day Active Potassium Chloride ER 10 MEQ 1 tablet with food Orally Twice a day Active Omeprazole 40 MG 1 capsule 30 minutes before morning meal Orally Once a day Active Gabapentin 600 MG 1 tablet Orally Once a day Active Methenamine Hippurate 1 GM 1 tablet Orally Twice a day Active Furosemide 20 MG 1 tablet Orally Once a day Active Venlafaxine HCl ER 150 MG 1 tablet with food Orally Once a day Active Cipro 500 MG 1 tablet Orally ever y 12 hrs Not-Taking Social History Tobacco Use: Social History Observation Description Date Details (start date - stop date) Never Smoker NA - NA xTobacco Use/Smoking Question Answer Notes Are you a nonsmoker Problems Problem Type SNOMED Code ICD Code Onset Dates Problem Status W/U Status Risk Notes Problem Neurogenic bladder (755944592) Neurogenic bladder (N31.9) Active confirmed Problem [id number] Chronic suprapubic catheter (Z93.59) Active confirmed Plan Of Treatment Future Test Test Name Order Date US Renal w/bladder-[id number] 11/06/2023 Abdomen [id number] 11/06/2023 Insurance Providers Payer Name Payer Address Payer Phone Subscriber Number Group Number Insured Name Patient Relationship to Insured Coverage Start Date Coverage End Date [facility] Medicare Advantage PPO [address] [address] [place] [address] [phone] [id number] Jami Gandhi Self - patient is the insured [place] Medicaid [address] [place] [address] [id number] Jami Gandhi Self - patient is the insured Medications Administered Medication Instructions Date of Administration Dosage Notes cefTRIAXone Sodium 01/23/[address] [facility] [phone] Medical (General) History Medical History History ICD Code Mumps Chicken Pox Pneumonia Bladder Infections Glaucoma Hernia Blood/Plasma Tranfusion chronic bladder infections osteomylitis chronic venous insufficiency of lower ex tremity colostomy HX DVT neurogenic bladder parapleglia Surgical History Surgery Date(Month/Year) Osteomyelitis 2020 Vena Cava Filter for Blood Clots 07/2004 Right Lower Leg 2018 Abdominal Surgery 2008 Ovarian Cyst 2008 Spinal Surgery x2 T-4 Paraplegic 2005 Hysterectomy 2004 Hospitalization History Reason Date(Month/Year) See Surgical list
--- OUTSIDE RECORDS SUMMARY | 2024-08-29 08:49 | XMS_ITS | Clinical Summary ---
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 Gender Identity Not on file Sexual Orientation [...] (1 of 3 - 19+ 3-dose series) 02/07 CERVICAL CANCER SCREENING 1998 BREAST CANCER SCREENING 2008 COLORECTAL SCREENING 2013 Colorectal Cancer Screening 2013 FIT-DNA Q 3 years 2013 FIT/FOBT Q 1 year 2013 Flex Sig/CT Colonography Q 5 years 2013 ZOSTER VACCINE (1 of 2) 2018 INFLUENZA VACCINE (#1) 2024 05/09/2008 Additional Health Concerns Infection Onset Date Last Indicated MRSA Comment:Kapil 10/26/15 10/27/2015 10/27/2015 Insurance [place]ICAID [place] Care Teams Sweat Band Sewer Relationship Specialty Start Date End Date Jose Bowers MD [address] [place] [phone] PCP - General 12/31/05
--- OUTSIDE RECORDS SUMMARY | 2024-08-29 08:49 | XMS_ITS | Encounter Summary ---
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[employer] Gender Identity Not on file Sexual Orientation [...] GLUCOSE POC 109(H) 60 - 100 mg/dL [facility] Venous blood specimen (specimen) 04/08/2008 4:10 PM CDT 04/09/2008 7:42 AM CDT Riky Mejía MD POINT OF CARE TESTING Final Result Performing Organization Address City/State/[facility] Co de Phone Number INTERFACE SYSTEM Refer to clinic/hospital department [facility] CLIA# [id number] [facility] [place] [address] * (ABNORMAL) POC GLUCOSE (04/08/2008 11:00 AM CDT) GLUCOSE POC 122(H) 60 - 100 mg/dL [facility] Venous blood specimen (specimen) 04/08/2008 11:00 AM CDT 04/09/2008 7:42 AM CDT us Riky Mejía MD POINT OF CARE TESTING Final Result Performing Organization Address [facility] de Phone Number INTERFACE SYSTEM Refer to clinic/hospital department [facility] CLIA# [id number] [address] [place] [address] * (ABNORMAL) POC GLUCOSE (04/08/2008 5:12 AM CDT) GLUCOSE POC 124(H) 60 - 100 mg/dL [facility] Venous blood specimen (specimen) 04/08/2008 5:12 AM CDT 04/08/2008 7:16 AM CDT Riky Mejía MD POINT OF CARE TESTING Final Result Performing Organization Address [facility] de Phone Number INTERFACE SYSTEM Refer to clinic/hospital department [facility] CLIA# [id number] [address] [place] [address] * (ABNORMAL) BASIC METABOLIC PANEL (04/08/2008 4:30 AM CDT) POTASSIUM 4.2 3.5 - 5.0 mEq/L [facility] OSMOLALITY, CALCULATED 284 275 - 295 mOsm/Kg [facility] CREATININE 0.5(L) 0.7 - 1.2 mg/dL [facility] CALCIUM 8.4 8.4 - 10.5 mg/dL [facility] GLUCOSE 141(H) 70 - 110 mg/dL [facility] CHLORIDE 102 95 - 110 mEq/L [facility] ANION GAP 9 9 - 20 mEq/L [facility] SODIUM 137 136 - 145 mEq/L [facility] BUN 11 7 - 17 mg/dL [facility] CO2 30 22 - 32 mmol/l [facility] Blood specimen (specimen) 04/08/2008 4:30 AM CDT 04/08/2008 4:30 AM CDT Riky Mejía MD CHEMISTRY ORDERABLES Final Result INTERFACE SYSTEM Refer to clinic/hospital department [facility] CLIA# [id number] [facility] [place] [address] * (ABNORMAL) CBC WITH DIFFERENTIAL (04/08/2008 4:30 AM CDT) MCV 90.8 84.0 - 103.0 Fl [facility] BASOPHILS 0.2 0.0 - 1.0 % [facility] MPV 10.7 8.9 - 12.8 Fl [facility] BASOPHILS ABSOLUTE 0.0 0.0 - 0.2 K/ul [facility] HEMOGLOBIN 10.6(L) 12.0 - 16.0 g/dL [facility] MONOCYTES 8.0 2.0 - 10.0 % [facility] RDW 16.8(H) 11.0 - 14.5 % [facility] MONOCYTE ABSOLUTE 1.0(H) 0.1 - 0.6 K/ul [facility] WBC 12.7(H) 4.5 - 11.0 K/ul [facility] NEUTROPHILS 86.4(H) 42.2 - 75.2 % [facility] MCH 29.4 27.0 - 34.0 pg [facility] NEUTROPHIL ABSOLUTE 10.9(H) 2.0 - 8.0 K/ul [facility] HEMATOCRIT 32.7(L) 36.0 - 46.0 % [facility] PLATELETS 149 140 - 440 K/ul [facility] EOSINOPHIL ABSOLUTE 0.1 0.0 - 0.7 K/ul [facility] EOSINOPHILS 0.7 0.0 - 7.0 % [facility] RBC 3.60(L) 4.20 - 5.40 Mil/ul [facility] MCHC 32.4 30.0 - 35.0 g/dL [facility] LYMPHOCYTE ABSOLUTE 0.6(L) 1.2 - 4.0 K/ul [facility] LYMPHOCYTES 4.7(L) 24.0 - 44.0 % [facility] Blood specimen (specimen) 04/08/2008 4:30 AM CDT 04/08/2008 4:30 AM CDT us Riky Mejía MD HEMATOLOGY ORDERABLES Final Result Performing Organization Address City/[facility] de Phone Number INTERFACE SYSTEM Refer to clinic/hospital department [facility] CLIA# [id number] [facility] [place] [address] * BLOOD CULTURE (04/07/2008 9:56 PM CDT) FINAL REPORT No growth INTERFA CE SYSTEM Blood specimen (specimen) 04/07/2008 9:56 PM CDT 04/07/2008 9:56 PM CDT us Riky Mejía MD MICROBIOLOGY - GENERAL MINERVA ATKINSON Final Result Performing Organization Address [facility] de Phone Number INTERFACE SYSTEM Refer to clinic/hospital department * BLOOD CULTURE (04/07/2008 9:56 PM CDT) FINAL REPORT No growth INTERFA CE SYSTEM Blood specimen (specimen) 04/07/2008 9:56 PM CDT 04/07/2008 9:56 PM CDT us Riky Mejía MD MICROBIOLOGY - GENERAL MINERVA ATKINSON Final Result Performing Organization Address [facility] de Phone Number INTERFACE SYSTEM Refer to clinic/hospital department * (ABNORMAL) POC GLUCOSE (04/07/2008 8:36 PM CDT) GLUCOSE POC 159(H) 60 - 100 mg/dL [facility] Venous blood specimen (specimen) 04/07/2008 8:36 PM CDT 04/08/2008 7:22 AM CDT us Riky Mejía MD POINT OF CARE TESTING Final Result Performing Organization Address City/[facility] de Phone Number INTERFACE SYSTEM Refer to clinic/hospital department [facility] CLIA# [id number] [address] [place] [address] * (ABNORMAL) POC GLUCOSE (04/07/2008 5:39 PM CDT) GLUCOSE POC 122(H) 60 - 100 mg/dL [facility] Venous blood specimen (specimen) 04/07/2008 5:39 PM CDT 04/08/2008 7:16 AM CDT Riky Mejía MD POINT OF CARE TESTING Final Result Performing Organization Address [facility] de Phone Number INTERFACE SYSTEM Refer to clinic/hospital department [facility] CLIA# [id number] [address] [place] [address] * (ABNORMAL) POC ISTAT EG 7+ (04/07/2008 4:27 PM CDT) FIO2 4 [facility] PO2 67(L) 80 - 105 mmHg [facility] CALCIUM IONIZED 1.15 1.12 - 1.32 mmol/l [facility] HEMATOCRIT ABG 32(L) 38 - 51 % [facility] PCO2 POC 45 35 - 45 mmHg [facility] SODIUM 137(L) 138 - 146 mEq/L [facility] BASE EXCESS 7(H) -2 - 3 mmol/l [facility] PH 7.45 7.35 - 7.45 Unit [facility] O2 SATURATION 94(L) 95 - 98 % [facility] PO2 TEMP CORRECT 67(L) 80 - 105 mmHg [facility] SPECIMEN TYPE Arterial [facility] Comment: Test Performed By [id number] Pulse OX: 99 Hemoglobin calculated from Hematocrit result PCO2 TEMP CORRECT 45 35 - 45 mmHg [facility] HEMOGLOBIN POC 10.9 +/-3 g/dL 12.0 - 16.0 g/dL [facility] POTASSIUM 4.0 3.5 - 4.9 mEq/L [facility] PH TEMP CORRECT 7.45 7.35 - 7.45 Unit [facility] HCO3 (CALC) POC 31.1(H) 22.0 - 26.0 mmol/l [facility] TCO2 (CALC) POC 32(H) 23 - 27 mmol/l [facility] Arterial blood specimen (specimen) 04/07/2008 4:27 PM CDT 04/07/2008 4:30 PM CDT Riky Mejía MD POINT OF CARE TESTING COM F inal Result Performing Organization Address [facility] de Phone Number INTERFACE SYSTEM Refer to clinic/hospital department [facility] CLIA# [id number] [address] [place] [address] * (ABNORMAL) POC GLUCOSE (04/07/2008 11:30 AM CDT) GLUCOSE POC 108(H) 60 - 100 mg/dL [facility] Venous blood specimen (specimen) 04/07/2008 11:30 AM CDT 04/08/2008 7:16 AM CDT Riky Mejía MD POINT OF CARE TESTING Final Result Performing Organization Address [facility] de Phone Number INTERFACE SYSTEM Refer to clinic/hospital department [facility] CLIA# [id number] [address] [place] [address] * (ABNORMAL) POC GLUCOSE (04/07/2008 5:02 AM CDT) GLUCOSE POC 138(H) 60 - 100 mg/dL [facility] Venous blood specimen (specimen) 04/07/2008 5:02 AM CDT 04/07/2008 7:10 AM CDT Riky Mejía MD POINT OF CARE TESTING Final Result INTERFACE SYSTEM Refer to clinic/hospital department [facility] CLIA# [id number] [address] [place] [address] * (ABNORMAL) CBC WITH DIFFERENTIAL (04/07/2008 3:13 AM CDT) HEMATOCRIT 30.3(L) 36.0 - 46.0 % [facility] EOSINOPHILS 1.6 0.0 - 7.0 % [facility] PLATELETS 140 140 - 440 K/ul [facility] PERIPHERAL BLOOD SMEAR REVIEW Automated Diff [facility] EOSINOPHIL ABSOLUTE 0.2 0.0 - 0.7 K/ul [facility] RBC 3.33(L) 4.20 - 5.40 Mil/ul [facility] LYMPHOCYTES 6.7(L) 24.0 - 44.0 % [facility] MCHC 32.3 30.0 - 35.0 g/dL [facility] LYMPHOCYTE ABSOLUTE 0.8(L) 1.2 - 4.0 K/ul [facility] MCV 91.0 84.0 - 103.0 Fl [facility] MPV 11.6 8.9 - 12.8 Fl [facility] BASOPHILS ABSOLUTE 0.0 0.0 - 0.2 K/ul [facility] BASOPHILS 0.2 0.0 - 1.0 % [facility] HEMOGLOBIN 9.8(L) 12.0 - 16.0 g/dL [facility] RDW 16.9(H) 11.0 - 14.5 % [facility] MONOCYTE ABSOLUTE 1.1(H) 0.1 - 0.6 K/ul [facility] MONOCYTES 9.4 2.0 - 10.0 % [facility] WBC 11.7(H) 4.5 - 11.0 K/ul [facility] MCH 29.4 27.0 - 34.0 pg [facility] NEUTROPHIL ABSOLUTE 9.6(H) 2.0 - 8.0 K/ul [facility] NEUTROPHILS 82.1(H) 42.2 - 75.2 % [facility] Blood specimen (specimen) 04/07/2008 3:13 AM CDT 04/07/2008 3:19 AM CDT us Riky Mejía MD HEMATOLOGY ORDERABLES Final Result Performing Organization Address City/[facility] Phone Number INTERFACE SYSTEM Refer to clinic/hospital department [facility] CLIA# [id number] [address] [place] [address] * (ABNORMAL) BASIC METABOLIC PANEL (04/07/2008 3:13 AM CDT) [facility] OSMOLALITY, CALCULATED 291 275 - 295 mOsm/Kg [facility] POTASSIUM 4.1 3.5 - 5.0 mEq/L [facility] CREATININE 0.6(L) 0.7 - 1.2 mg/dL [facility] CALCIUM 8.6 8.4 - 10.5 mg/dL [facility] GLUCOSE 141(H) 70 - 110 mg/dL [facility] CHLORIDE 105 95 - 110 mEq/L [facility] SODIUM 140 136 - 145 mEq/L [facility] ANION GAP 7(L) 9 - 20 mEq/L [facility] BUN 14 7 - 17 mg/dL [facility] CO2 32 22 - 32 mmol/l [facility] Blood specimen (specimen) 04/07/2008 3:13 AM CDT 04/07/2008 3:19 AM CDT us Riky Mejía MD CHEMISTRY ORDERABLES Final Result Performing Organization Address [facility] de Phone Number INTERFACE SYSTEM Refer to clinic/hospital department [facility] CLIA# [id number] [address] [place] [address] * (ABNORMAL) POC GLUCOSE (04/06/2008 8:09 PM CDT) [facility] GLUCOSE POC 118(H) 60 - 100 mg/dL [facility] Venous blood specimen (specimen) 04/06/2008 8:09 PM CDT 04/07/2008 7:13 AM CDT Riky Mejía MD POINT OF CARE TESTING Final Result Performing Organization Address [facility] Phone Number INTERFACE SYSTEM Refer to clinic/hospital department [facility] CLIA# [id number] [address] [place] [address] * (ABNORMAL) POC GLUCOSE (04/06/2008 5:03 PM CDT) GLUCOSE POC 131(H) 60 - 100 mg/dL [facility] Venous blood specimen (specimen) 04/06/2008 5:03 PM CDT 04/07/2008 7:10 AM CDT Riky Mejía MD POINT OF CARE TESTING Final Result Performing Organization Address [facility] Phone Number INTERFACE SYSTEM Refer to clinic/hospital department [facility] CLIA# [id number] [address] [place] [address] * (ABNORMAL) POC GLUCOSE (04/06/2008 10:59 AM CDT) GLUCOSE POC 128(H) 60 - 100 mg/dL [facility] Venous blood specimen (specimen) 04/06/2008 10:59 AM CDT 04/07/2008 7:10 AM CDT Riky Mejía MD POINT OF CARE TESTING Final Result Performing Organization Address [facility] de Phone Number INTERFACE SYSTEM Refer to clinic/hospital department [facility] CLIA# [id number] [address] [place] [address] * XR CHEST PA OR AP (04/06/2008 [...] GLUCOSE POC 126(H) 60 - 100 mg/dL [facility] Venous blood specimen (specimen) 04/06/2008 6:02 AM CDT 04/06/2008 7:01 AM CDT us Riky Mejía MD POINT OF CARE TESTING Final Result INTERFACE SYSTEM Refer to clinic/hospital department [facility] CLIA# [id number] [address] [place] [address] * (ABNORMAL) CBC WITH DIFFERENTIAL (04/06/2008 3:55 AM CDT) NEUTROPHILS 81.1(H) 42.2 - 75.2 % [facility] MCH 29.1 27.0 - 34.0 pg [facility] NEUTROPHIL ABSOLUTE 8.9(H) 2.0 - 8.0 K/ul [facility] HEMATOCRIT 31.3(L) 36.0 - 46.0 % [facility] PLATELETS 122(L) 140 - 440 K/ul [facility] EOSINOPHIL ABSOLUTE 0.3 0.0 - 0.7 K/ul [facility] EOSINOPHILS 3.1 0.0 - 7.0 % [facility] RBC 3.47(L) 4.20 - 5.40 Mil/ul [facility] MCHC 32.3 30.0 - 35.0 g/dL [facility] LYMPHOCYTE ABSOLUTE 0.9(L) 1.2 - 4.0 K/ul [facility] LYMPHOCYTES 8.4(L) 24.0 - 44.0 % [facility] MCV 90.2 84.0 - 103.0 Fl [facility] BASOPHILS 0.2 0.0 - 1.0 % [facility] MPV 11.8 8.9 - 12.8 Fl [facility] BASOPHILS ABSOLUTE 0.0 0.0 - 0.2 K/ul [facility] HEMOGLOBIN 10.1(L) 12.0 - 16.0 g/dL [facility] MONOCYTES 7.2 2.0 - 10.0 % [facility] RDW 17.0(H) 11.0 - 14.5 % [facility] MONOCYTE ABSOLUTE 0.8(H) 0.1 - 0.6 K/ul [facility] WBC 11.0 4.5 - 11.0 K/ul [facility] Blood specimen (specimen) 04/06/2008 3:55 AM CDT 04/06/2008 4:00 AM CDT Marquis Scott MD HEMATOLOGY ORDERABLES Final Res ult INTERFACE SYSTEM Refer to clinic/hospital department [facility] CLIA# [id number] [address] [place] [address] * (ABNORMAL) RENAL FUNCTION PANEL (04/06/2008 3:55 AM CDT) GLUCOSE 218(H) 70 - 110 mg/dL [facility] OSMOLALITY, CALCULATED 295 275 - 295 mOsm/Kg [facility] CHLORIDE 106 95 - 110 mEq/L [facility] ALBUMIN 3.0(L) 3.5 - 5.0 g/dL [facility] SODIUM 138 136 - 145 mEq/L [facility] BUN 22(H) 7 - 17 mg/dL [facility] CO2 30 22 - 32 mmol/l [facility] PHOSPHORUS 2.0(L) 2.5 - 4.6 mg/dL [facility] POTASSIUM 4.7 3.5 - 5.0 mEq/L [facility] ANION GAP 7(L) 9 - 20 mEq/L [facility] CREATININE 0.6(L) 0.7 - 1.2 mg/dL [facility] CALCIUM 8.2(L) 8.4 - 10.5 mg/dL [facility] Blood specimen (specimen) 04/06/2008 3:55 AM CDT 04/06/2008 4:00 AM CDT Marquis Scott MD CHEMISTRY ORDERABLES Final Resu lt Performing Organization Address City/[facility] Co de Phone Number INTERFACE SYSTEM Refer to clinic/hospital department [facility] CLIA# [id number] [address] [place] [address] * (ABNORMAL) POC GLUCOSE (04/05/2008 8:20 PM CDT) GLUCOSE POC 114(H) 60 - 100 mg/dL [facility] Venous blood specimen (specimen) 04/05/2008 8:20 PM CDT 04/06/2008 7:01 AM CDT us Riky Mejía MD POINT OF CARE TESTING Final Result Performing Organization Address [facility] Phone Number INTERFACE SYSTEM Refer to clinic/hospital department [facility] CLIA# [id number] [address] [place] [address] * (ABNORMAL) POC GLUCOSE (04/05/2008 4:50 PM CDT) GLUCOSE POC 118(H) 60 - 100 mg/dL [facility] Venous blood specimen (specimen) 04/05/2008 4:50 PM CDT 04/06/2008 7:01 AM CDT us Riky Mejía MD POINT OF CARE TESTING Final Result Performing Organization Address [facility] Phone Number INTERFACE SYSTEM Refer to clinic/hospital department [facility] CLIA# [id number] [address] [place] [address] * IV CATHETER CULTURE (04/05/2008 4:00 PM CDT) FINAL REPORT No growth INTERFA CE SYSTEM 04/05/2008 4:00 PM CDT 04/05/2008 4:00 PM CDT us Riky Mejía MD MICROBIOLOGY - GENERAL MINERVA ATKINSON Final Result Performing Organization Address City/[facility] de Phone Number INTERFACE SYSTEM [...] (ABNORMAL) POC GLUCOSE (04/05/2008 11:06 AM CDT) [facility] GLUCOSE POC 120(H) 60 - 100 mg/dL [facility] Venous blood specimen (specimen) 04/05/2008 11:06 AM CDT 04/06/2008 7:01 AM CDT Riky Mejía MD POINT OF CARE TESTING Final Result INTERFACE SYSTEM Refer to clinic/hospital department [facility] CLIA# [id number] [address] [place] [address] * (ABNORMAL) POC GLUCOSE (04/05/2008 7:26 AM CDT) GLUCOSE POC 120(H) 60 - 100 mg/dL [facility] Venous blood specimen (specimen) 04/05/2008 7:26 AM CDT 04/06/2008 7:01 AM CDT Riky Mejía MD POINT OF CARE TESTING Final Result INTERFACE SYSTEM Refer to clinic/hospital department [facility] CLIA# [id number] [address] [place] [address] * PT AND APTT (04/05/2008 3:04 AM CDT) [facility] PTT 24.1 22.5 - 36.5 Secs [facility] Comment: Therapeutic Range: ?? Hi-level PE/DVT heparin protocol 80.1 -95.0 ??sec ? Lo-level PE/DVT ??heparin protocol ??67.1 - ??80.0 sec ?? Cardiac Heparin Protocol 67.1 - 85.0 sec ?? Neuro Heparin Protocol 67.1 - 80.0 sec As of 09/25/2007 note change in APTT Normal Range. PROTIME 14.8 12.8 - 15.8 Secs [facility] Comment:As of 2007 not e change in normal range. INR 1.0 [facility] Comment: Expected Values for INR: DVT/PE ?Goal INR 2.5; range 2.0 - 3.0 Valve Replacement ? Tissue ? Goal INR 2.5; range 2.0 - 3.0 ? Mechanical ?Goal INR 3.0; range 2.5 - 3.5 POST-TX ?Goal INR 2.5; range 2.0 - 3.0 ??or Goal 3.0; range 2.5 - 3.5 Atrial Fibrillation ?Goal INR 2.5; range 2.0 - 3.0 Ischemic Stroke ?Goal INR 2.5; range 2.0 - 3.0 For additional information see Guidelines for Anticoagulation available from the pharmacy [facility]. ??[phone] Blood specimen (specimen) 04/05/2008 3:04 AM CDT 04/05/2008 3:08 AM CDT us Riky Mejía MD HEMATOLOGY ORDERABLES Edite d Performing Organization Address [facility] Phone Number INTERFACE SYSTEM Refer to clinic/hospital department [facility] CLIA# [id number] [address] [place] [id number] * MAGNESIUM LEVEL (04/05/2008 3:04 AM CDT) MAGNESIUM 2.1 1.7 - 2.4 mg/dL [facility] Blood specimen (specimen) 04/05/2008 3:04 AM CDT 04/05/2008 3:08 AM CDT us Riky Mejía MD CHEMISTRY ORDERABLES Final Result Performing Organization Address [facility] Phone Number INTERFACE SYSTEM Refer to clinic/hospital department [facility] CLIA# [id number] [address] [place] [phone] * (ABNORMAL) PHOSPHORUS (04/05/2008 3:04 AM CDT) PHOSPHORUS 1.7(L) 2.5 - 4.6 mg/dL [facility] Blood specimen (specimen) 04/05/2008 3:04 AM CDT 04/05/2008 3:08 AM CDT Riky Mejía MD CHEMISTRY ORDERABLES Final Result Performing Organization Address [facility] Phone Number INTERFACE SYSTEM Refer to clinic/hospital department [facility] CLIA# [id number] [address] [place] [phone] * (ABNORMAL) BASIC METABOLIC PANEL (04/05/2008 3:04 AM CDT) Pathologist [facility] CO2 30 22 - 32 mmol/l [facility] OSMOLALITY, CALCULATED 307(H) 275 - 295 mOsm/Kg [facility] POTASSIUM 3.9 3.5 - 5.0 mEq/L [facility] CREATININE 0.7 0.7 - 1.2 mg/dL [facility] CALCIUM 8.2(L) 8.4 - 10.5 mg/dL [facility] GLUCOSE 126(H) 70 - 110 mg/dL [facility] CHLORIDE 112(H) 95 - 110 mEq/L [facility] SODIUM 146(H) 136 - 145 mEq/L [facility] ANION GAP 8(L) 9 - 20 mEq/L [facility] BUN 32(H) 7 - 17 mg/dL [facility] Blood specimen (specimen) 04/05/2008 3:04 AM CDT 04/05/2008 3:08 AM CDT Riky Mejía MD CHEMISTRY ORDERABLES Final Result Performing Organization Address [facility] Phone Number INTERFACE SYSTEM Refer to clinic/hospital department [facility] CLIA# [id number] [address] [place] [address] * (ABNORMAL) CBC WITH DIFFERENTIAL (04/05/2008 3:04 AM CDT) Pathologist [facility] EOSINOPHIL ABSOLUTE 0.2 0.0 - 0.7 K/ul [facility] EOSINOPHILS 2.2 0.0 - 7.0 % [facility] PERIPHERAL BLOOD SMEAR REVIEW Automated Diff [facility] RBC 3.51(L) 4.20 - 5.40 Mil/ul [facility] MCHC 33.2 30.0 - 35.0 g/dL [facility] LYMPHOCYTE ABSOLUTE 1.1(L) 1.2 - 4.0 K/ul [facility] LYMPHOCYTES 9.6(L) 24.0 - 44.0 % [facility] MCV 88.3 84.0 - 103.0 Fl [facility] BASOPHILS 0.1 0.0 - 1.0 % [facility] MPV 11.0 8.9 - 12.8 Fl [facility] BASOPHILS ABSOLUTE 0.0 0.0 - 0.2 K/ul [facility] HEMOGLOBIN 10.3(L) 12.0 - 16.0 g/dL [facility] MONOCYTES 8.4 2.0 - 10.0 % [facility] RDW 17.1(H) 11.0 - 14.5 % [facility] MONOCYTE ABSOLUTE 0.9(H) 0.1 - 0.6 K/ul [facility] WBC 10.9 4.5 - 11.0 K/ul [facility] NEUTROPHILS 79.7(H) 42.2 - 75.2 % [facility] MCH 29.3 27.0 - 34.0 pg [facility] NEUTROPHIL ABSOLUTE 8.7(H) 2.0 - 8.0 K/ul [facility] HEMATOCRIT 31.0(L) 36.0 - 46.0 % [facility] PLATELETS 91(L) 140 - 440 K/ul [facility] Blood specimen (specimen) 04/05/2008 3:04 AM CDT 04/05/2008 3:08 AM CDT Riky Mejía MD HEMATOLOGY ORDERABLES Final Result INTERFACE SYSTEM Refer to clinic/hospital department [facility] CLIA# [id number] [address] [place] [address] * (ABNORMAL) RENAL FUNCTION PANEL (04/04/2008 5:04 PM CDT) Pathologist [facility] ANION GAP 8(L) 9 - 20 mEq/L [facility] PHOSPHORUS 1.9(L) 2.5 - 4.6 mg/dL [facility] ALBUMIN 2.9(L) 3.5 - 5.0 g/dL [facility] CHLORIDE 117(H) 95 - 110 mEq/L [facility] CREATININE 1.2 0.7 - 1.2 mg/dL [facility] SODIUM 147(H) 136 - 145 mEq/L [facility] GLUCOSE 124(H) 70 - 110 mg/dL [facility] CO2 26 22 - 32 mmol/l [facility] CALCIUM 7.5(L) 8.4 - 10.5 mg/dL [facility] POTASSIUM 3.5 3.5 - 5.0 mEq/L [facility] OSMOLALITY, CALCULATED 309(H) 275 - 295 mOsm/Kg [facility] BUN 34(H) 7 - 17 mg/dL [facility] Blood specimen (specimen) 04/04/2008 5:04 PM CDT 04/04/2008 5:06 PM CDT Riky Mejía MD CHEMISTRY ORDERABLES Edited INTERFACE SYSTEM Refer to clinic/hospital department [facility]# [id number] [address] [place] [address] * (ABNORMAL) CBC WITH DIFFERENTIAL (04/04/2008 5:04 PM CDT) Pathologist [facility] HEMOGLOBIN 9.6(L) 12.0 - 16.0 g/dL [facility] RDW 16.8(H) 11.0 - 14.5 % [facility] MONOCYTE ABSOLUTE 0.9(H) 0.1 - 0.6 K/ul [facility] MONOCYTES 10.0 2.0 - 10.0 % [facility] WBC 9.4 4.5 - 11.0 K/ul [facility] MCH 29.0 27.0 - 34.0 pg [facility] NEUTROPHIL ABSOLUTE 7.3 2.0 - 8.0 K/ul [facility] NEUTROPHILS 77.7(H) 42.2 - 75.2 % [facility] HEMATOCRIT 28.9(L) 36.0 - 46.0 % [facility] EOSINOPHILS 1.1 0.0 - 7.0 % [facility] PLATELETS 83(L) 140 - 440 K/ul [facility] PERIPHERAL BLOOD SMEAR REVIEW Automated Diff [facility] EOSINOPHIL ABSOLUTE 0.1 0.0 - 0.7 K/ul [facility] RBC 3.31(L) 4.20 - 5.40 Mil/ul [facility] LYMPHOCYTES 11.1(L) 24.0 - 44.0 % [facility] MCHC 33.2 30.0 - 35.0 g/dL [facility] LYMPHOCYTE ABSOLUTE 1.0(L) 1.2 - 4.0 K/ul [facility] MCV 87.3 84.0 - 103.0 Fl [facility] MPV 11.6 8.9 - 12.8 Fl [facility] BASOPHILS ABSOLUTE 0.0 0.0 - 0.2 K/ul [facility] BASOPHILS 0.1 0.0 - 1.0 % [facility] Blood specimen (specimen) 04/04/2008 5:04 PM CDT 04/04/2008 5:06 PM CDT us Riky Mejía MD HEMATOLOGY ORDERABLES Final Result INTERFACE SYSTEM Refer to clinic/hospital department [facility] CLIA# [id number] [address] [place] [address] * (ABNORMAL) POC ISTAT EG 7+ (04/04/2008 9:15 AM CDT) SODIUM 145 138 - 146 mEq/L [facility] BASE EXCESS 0 -2 - 3 mmol/l [facility] PH 7.39 7.35 - 7.45 Unit [facility] O2 SATURATION 94(L) 95 - 98 % [facility] PO2 TEMP CORRECT 70(L) 80 - 105 mmHg [facility] PCO2 TEMP CORRECT 42 35 - 45 mmHg [facility] HEMOGLOBIN POC 8.8 +/-3 g/dL 12.0 - 16.0 g/dL [facility] POTASSIUM 3.2(L) 3.5 - 4.9 mEq/L [facility] PH TEMP CORRECT 7.39 7.35 - 7.45 Unit [facility] HCO3 (CALC) POC 25.0 22.0 - 26.0 mmol/l [facility] TCO2 (CALC) POC 26 23 - 27 mmol/l [facility] SPECIMEN TYPE Arterial [facility] Comment: Test Performed By [id number] Pulse OX: 94 Hemoglobin calculated from Hematocrit result PO2 70(L) 80 - 105 mmHg [facility] CALCIUM IONIZED 1.12 1.12 - 1.32 mmol/l [facility] HEMATOCRIT ABG 26(L) 38 - 51 % [facility] PCO2 POC 42 35 - 45 mmHg [facility] Arterial blood specimen (specimen) 04/04/2008 9:15 AM CDT 04/04/2008 9:18 AM CDT us Riky Mejía MD POINT OF CARE TESTING COM F inal Result INTERFACE SYSTEM Refer to clinic/hospital department [facility] CLIA# [id number] [address] [place] [address] * PTT (04/04/2008 4:19 AM CDT) PTT 26.4 22.5 - 36.5 Secs [facility] Comment: Therapeutic Range: ?? Hi-level PE/DVT [...] Result INTERFACE SYSTEM Refer to clinic/hospital department [facility] CLIA# [id number] [address] [place] [address] * PROTIME-INR (04/04/2008 4:19 AM CDT) PROTIME 15.2 12.8 - 15.8 Secs [facility] Comment:As of 2007 not e change in normal range. INR 1.1 [facility] Comment: Expected Values for INR: DVT/PE ?Goal INR 2.5; range 2.0 - 3.0 Valve Replacement ? Tissue ? Goal INR 2.5; range 2.0 - 3.0 ? Mechanical ?Goal INR 3.0; range 2.5 - 3.5 POST-TX ?Goal INR 2.5; range 2.0 - 3.0 ??or Goal 3.0; range 2.5 - 3.5 Atrial Fibrillation ?Goal INR 2.5; range 2.0 - 3.0 Ischemic Stroke ?Goal INR 2.5; range 2.0 - 3.0 For additional information see Guidelines for Anticoagulation available from the pharmacy [facility] Pham D. ??[phone] Blood specimen (specimen) 04/04/2008 4:19 AM CDT 04/04/2008 4:23 AM CDT Riky Mejía MD HEMATOLOGY ORDERABLES Final Result Performing Organization Address [facility] Phone Number INTERFACE SYSTEM Refer to clinic/hospital department [facility] CLIA# [id number] [address] [place] [address] * (ABNORMAL) PHOSPHORUS (04/04/2008 4:19 AM CDT) PHOSPHORUS 1.9(L) 2.5 - 4.6 mg/dL [facility] Blood specimen (specimen) 04/04/2008 4:19 AM CDT 04/04/2008 4:23 AM CDT us Riky Mejía MD CHEMISTRY ORDERABLES Final Result Performing Organization Address [facility] Phone Number INTERFACE SYSTEM Refer to clinic/hospital department [facility] CLIA# [id number] [address] [place] [address] * MAGNESIUM LEVEL (04/04/2008 4:19 AM CDT) MAGNESIUM 1.8 1.7 - 2.4 mg/dL [facility] Blood specimen (specimen) 04/04/2008 4:19 AM CDT 04/04/2008 4:23 AM CDT us Riky Mejía MD CHEMISTRY ORDERABLES Final Result Performing Organization Address [facility] Phone Number INTERFACE SYSTEM Refer to clinic/[facility] CLIA# [id number] [address] [place] [address] * (ABNORMAL) COMPREHENSIVE METABOLIC PANEL (04/04/2008 4:19 AM CDT) ALBUMIN/GLOBULIN RATIO 1.4 1.0 - 2.3 [facility] POTASSIUM 3.3(L) 3.5 - 5.0 mEq/L [facility] ANION GAP 11 9 - 20 mEq/L [facility] ALBUMIN 3.0(L) 3.5 - 5.0 g/dL [facility] CREATININE 2.1(H) 0.7 - 1.2 mg/dL [facility] ALT 20 4 - 36 IU/L [facility] CALCIUM 8.3(L) 8.4 - 10.5 mg/dL [facility] GLUCOSE 124(H) 70 - 110 mg/dL [facility] ALKALINE PHOSPHATASE 42 25 - 100 U/L [facility] CHLORIDE 111(H) 95 - 110 mEq/L [facility] OSMOLALITY, CALCULATED 310(H) 275 - 295 mOsm/Kg [facility] GLOBULIN (CALC) 2.2(L) 2.4 - 3.9 g/dL [facility] TOTAL PROTEIN 5.2(L) 6.3 - 8.2 g/dL [facility] SODIUM 146(H) 136 - 145 mEq/L [facility] BILIRUBIN TOTAL 0.9 0.3 - 1.2 mg/dL [facility] CO2 27 22 - 32 mmol/l [facility] BUN 42(H) 7 - 17 mg/dL [facility] AST 104(H) 8 - 33 U/L [facility] Blood specimen (specimen) 04/04/2008 4:19 AM CDT 04/04/2008 4:23 AM CDT us Riky Mejía MD CHEMISTRY ORDERABLES Final Result INTERFACE SYSTEM Refer to clinic/hospital department [facility] CLIA# [id number] [address] [place] [address] * (ABNORMAL) CBC WITH DIFFERENTIAL (04/04/2008 4:19 AM CDT) HEMATOCRIT 28.7(L) 36.0 - 46.0 % [facility] EOSINOPHILS 0.2 0.0 - 7.0 % [facility] PLATELETS 83(L) 140 - 440 K/ul [facility] PERIPHERAL BLOOD SMEAR REVIEW Automated Diff [facility] EOSINOPHIL ABSOLUTE 0.0 0.0 - 0.7 K/ul [facility] RBC 3.33(L) 4.20 - 5.40 Mil/ul [facility] LYMPHOCYTES 12.1(L) 24.0 - 44.0 % [facility] MCHC 33.4 30.0 - 35.0 g/dL [facility] LYMPHOCYTE ABSOLUTE 1.1(L) 1.2 - 4.0 K/ul [facility] MCV 86.2 84.0 - 103.0 Fl [facility] MPV 11.5 8.9 - 12.8 Fl [facility] BASOPHILS ABSOLUTE 0.0 0.0 - 0.2 K/ul [facility] BASOPHILS 0.2 0.0 - 1.0 % [facility] HEMOGLOBIN 9.6(L) 12.0 - 16.0 g/dL [facility] RDW 16.1(H) 11.0 - 14.5 % [facility] MONOCYTE ABSOLUTE 1.0(H) 0.1 - 0.6 K/ul [facility] MONOCYTES 10.5(H) 2.0 - 10.0 % [facility] WBC 9.0 4.5 - 11.0 K/ul [facility] MCH 28.8 27.0 - 34.0 pg [facility] NEUTROPHIL ABSOLUTE 6.9 2.0 - 8.0 K/ul [facility] NEUTROPHILS 77.0(H) 42.2 - 75.2 % [facility] Blood specimen (specimen) 04/04/2008 4:19 AM CDT 04/04/2008 4:23 AM CDT us Riky Mejía MD HEMATOLOGY ORDERABLES Final Result INTERFACE SYSTEM Refer to clinic/hospital department [facility] CLIA# [id number] [facility] [place] [address] * (ABNORMAL) POC ISTAT EG 7+ (04/04/2008 4:07 AM CDT) POTASSIUM 3.1(L) 3.5 - 4.9 mEq/L [facility] PH TEMP CORRECT 7.45 7.35 - 7.45 Unit [facility] HCO3 (CALC) POC 24.5 22.0 - 26.0 mmol/l [facility] TCO2 (CALC) POC 26 23 - 27 mmol/l [facility] FIO2 50 [facility] PO2 138(H) 80 - 105 mmHg [facility] CALCIUM IONIZED 1.10(L) 1.12 - 1.32 mmol/l [facility] HEMATOCRIT ABG 25(L) 38 - 51 % [facility] PCO2 POC 35 35 - 45 mmHg [facility] SODIUM 143 138 - 146 mEq/L [facility] BASE EXCESS 1 -2 - 3 mmol/l [facility] PH 7.45 7.35 - 7.45 Unit [facility] O2 SATURATION 99(H) 95 - 98 % [facility] PO2 TEMP CORRECT 138(H) 80 - 105 mmHg [facility] SPECIMEN TYPE Arterial [facility] Comment: Test Performed By [id number] Tidal volume: 500 PEEP: 10 Rate: 14 Pulse OX: 100 Hemoglobin calculated from Hematocrit result PCO2 TEMP CORRECT 35 35 - 45 mmHg [facility] HEMOGLOBIN POC 8.5 +/-3 g/dL 12.0 - 16.0 g/dL [facility] Arterial blood specimen (specimen) 04/04/2008 4:07 AM CDT 04/04/2008 5:13 AM CDT us Riky Mejía MD POINT OF CARE TESTING COM F inal Result INTERFACE SYSTEM Refer to clinic/hospital department [facility] CLIA# [id number] [address] [place] [address] * MRSA CULTURE (04/03/2008 9:03 PM CDT) FINAL REPORT Culture screen for MRSA negative INTERFACE SYSTEM 04/03/2008 9:03 PM CDT 04/03/2008 9:03 PM CDT Riky Mejía MD MICROBIOLOGY - GENERAL ORDE RABLES Final Result Performing Organization Address [facility] Co de Phone Number INTERFACE [...] CALCIUM IONIZED 1.00(L) 1.12 - 1.32 mmol/l [facility] HEMATOCRIT ABG 24(L) 38 - 51 % [facility] PCO2 POC 36 35 - 45 mmHg [facility] SODIUM 144 138 - 146 mEq/L [facility] BASE EXCESS 0 -2 - 3 mmol/l [facility] PH 7.44 7.35 - 7.45 Unit [facility] O2 SATURATION 98 95 - 98 % [facility] PO2 TEMP CORRECT 101 80 - 105 mmHg [facility] SPECIMEN TYPE Arterial [facility] Comment: Test Performed By [id number] Tidal volume: 500 PEEP: 10 Rate: 16 Pulse OX: 96 Hemoglobin calculated from Hematocrit result PCO2 TEMP CORRECT 36 35 - 45 mmHg [facility] HEMOGLOBIN POC 8.2 +/-3 g/dL 12.0 - 16.0 g/dL [facility] POTASSIUM 3.2(L) 3.5 - 4.9 mEq/L [facility] PH TEMP CORRECT 7.44 7.35 - 7.45 Unit [facility] HCO3 (CALC) POC 23.9 22.0 - 26.0 mmol/l [facility] TCO2 (CALC) POC 25 23 - 27 mmol/l [facility] FIO2 60 [facility] PO2 101 80 - 105 mmHg [facility] Arterial blood specimen (specimen) 04/03/2008 8:35 PM CDT 04/03/2008 8:48 PM CDT us Riky Mejía MD POINT OF CARE TESTING COM F inal Result INTERFACE SYSTEM Refer to clinic/hospital department [facility] CLIA# [id number] [facility] [place] [address] * TYPE AND CROSSMATCH (04/03/2008 8:13 PM CDT) [facility] BLOOD BANK PRODUCT INTERFACE SYSTEM Blood specimen (specimen) 04/03/2008 8:13 PM CDT 04/03/2008 8:17 PM CDT us Riky Mejía MD BLOOD BANK ORDERABLES Edite d INTERFACE SYSTEM Refer to clinic/hospital department * (ABNORMAL) CBC WITH DIFFERENTIAL (04/03/2008 8:13 PM CDT) [facility] HEMATOCRIT 26.9(L) 36.0 - 46.0 % [facility] PLATELETS 102(L) 140 - 440 K/ul [facility] EOSINOPHIL ABSOLUTE 0.0 0.0 - 0.7 K/ul [facility] EOSINOPHILS 0.1 0.0 - 7.0 % [facility] RBC 3.13(L) 4.20 - 5.40 Mil/ul [facility] MCHC 33.8 30.0 - 35.0 g/dL [facility] LYMPHOCYTE ABSOLUTE 1.1(L) 1.2 - 4.0 K/ul [facility] LYMPHOCYTES 12.2(L) 24.0 - 44.0 % [facility] MCV 85.9 84.0 - 103.0 Fl [facility] BASOPHILS 0.1 0.0 - 1.0 % [facility] MPV 11.7 8.9 - 12.8 Fl [facility] BASOPHILS ABSOLUTE 0.0 0.0 - 0.2 K/ul [facility] HEMOGLOBIN 9.1(L) 12.0 - 16.0 g/dL [facility] MONOCYTES 11.9(H) 2.0 - 10.0 % [facility] RDW 16.2(H) 11.0 - 14.5 % [facility] MONOCYTE ABSOLUTE 1.1(H) 0.1 - 0.6 K/ul [facility] WBC 9.0 4.5 - 11.0 K/ul [facility] NEUTROPHILS 75.7(H) 42.2 - 75.2 % [facility] MCH 29.1 27.0 - 34.0 pg [facility] NEUTROPHIL ABSOLUTE 6.8 2.0 - 8.0 K/ul [facility] Blood specimen (specimen) 04/03/2008 8:13 PM CDT 04/03/2008 8:17 PM CDT us Riky Mejía MD HEMATOLOGY ORDERABLES Final Result Performing Organization Address [place]/[facility] de Phone Number INTERFACE SYSTEM Refer to clinic/hospital department [facility] CLIA# [id number] [address] [place] [address] * PTT (04/03/2008 8:13 PM CDT) PTT 28.1 22.5 - 36.5 Secs [facility] Comment: Therapeutic Range: ?? Hi-level PE/DVT [...] HEMATOLOGY ORDERABLES Final Result Performing Organization Address [place]/[facility] de Phone Number INTERFACE SYSTEM Refer to clinic/hospital department [facility] CLIA# [id number] [address] [place] [address] * (ABNORMAL) PROTIME-INR (04/03/2008 8:13 PM CDT) INR 1.2 [facility] Comment: Expected Values for INR: DVT/PE ?Goal INR 2.5; range 2.0 - 3.0 Valve Replacement ? Tissue ? Goal INR 2.5; range 2.0 - 3.0 ? Mechanical ?Goal INR 3.0; range 2.5 - 3.5 POST-TX ?Goal INR 2.5; range 2.0 - 3.0 ??or Goal 3.0; range 2.5 - 3.5 Atrial Fibrillation ?Goal INR 2.5; range 2.0 - 3.0 Ischemic Stroke ?Goal INR 2.5; range 2.0 - 3.0 For additional information see Guidelines for Anticoagulation available from the pharmacy [facility] Pham D. ??[phone] PROTIME 16.3(H) 12.8 - 15.8 Secs [facility] Comment:As of 2007 not e change in normal range. Blood specimen (specimen) 04/03/2008 8:13 PM CDT 04/03/2008 8:17 PM CDT us Riky Mejía MD HEMATOLOGY ORDERABLES Final Result INTERFACE SYSTEM Refer to clinic/hospital department [facility] CLIA# [id number] [address] [place] [address] * ANTIBODY SCREEN (04/03/2008 8:13 PM CDT) ANTIBODY SCREEN Negative [facility] Blood specimen (specimen) 04/03/2008 8:13 PM CDT 04/03/2008 8:17 PM CDT us Riky Mejía MD BLOOD BANK ORDERABLES Final Result Performing Organization Address City/[facility] de Phone Number INTERFACE SYSTEM Refer to clinic/hospital department [facility] CLIA# [id number] [address] [place] [address] * ABORH TYPING (04/03/2008 8:13 PM CDT) Pathologist [facility] ABO/RH TYPE O Positive [facility] Blood specimen (specimen) 04/03/2008 8:13 PM CDT 04/03/2008 8:17 PM CDT Riky Mejía MD BLOOD BANK ORDERABLES Final Result Performing Organization Address [facility] de Phone Number INTERFACE SYSTEM Refer to clinic/hospital department [facility] CLIA# [id number] [address] [place] [address] * (ABNORMAL) COMPREHENSIVE METABOLIC PANEL (04/03/2008 8:13 PM CDT) Pathologist [facility] GLUCOSE 140(H) 70 - 110 mg/dL [facility] ALKALINE PHOSPHATASE 40 25 - 100 U/L [facility] CHLORIDE 112(H) 95 - 110 mEq/L [facility] AST 97(H) 8 - 33 U/L [facility] GLOBULIN (CALC) 1.9(L) 2.4 - 3.9 g/dL [facility] TOTAL PROTEIN 4.9(L) 6.3 - 8.2 g/dL [facility] SODIUM 146(H) 136 - 145 mEq/L [facility] ANION GAP 11 9 - 20 mEq/L [facility] CO2 26 22 - 32 mmol/l [facility] BUN 47(H) 7 - 17 mg/dL [facility] ALT 19 4 - 36 IU/L [facility] ALBUMIN/GLOBULIN RATIO 1.6 1.0 - 2.3 [facility] POTASSIUM 3.2(L) 3.5 - 5.0 mEq/L [facility] OSMOLALITY, CALCULATED 312(H) 275 - 295 mOsm/Kg [facility] ALBUMIN 3.0(L) 3.5 - 5.0 g/dL [facility] CREATININE 2.9(H) 0.7 - 1.2 mg/dL [facility] BILIRUBIN TOTAL 0.6 0.3 - 1.2 mg/dL [facility] CALCIUM 7.6(L) 8.4 - 10.5 mg/dL [facility] Blood specimen (specimen) 04/03/2008 8:13 PM CDT 04/03/2008 8:17 PM CDT Riky Mjeía MD CHEMISTRY ORDERABLES Edited INTERFACE SYSTEM Refer to clinic/hospital department [facility] CLIA# [id number] [address] [place] [address] documented in this encounter Visit Diagnoses Not on filedocumented in this encounter Additional Health Concerns Infection Onset Date Last Indicated Resolved Time MRSA Comment:Kapil 10/26/15 10/27/2015 10/27/2015 documented as of this encounter Care Teams [employer] Relationship Specialty Start Date End Date Jose Bowers MD [address] [place] [id number] PCP - General 12/31/05 documented as of this encounter
--- OUTSIDE RECORDS SUMMARY | 2024-08-29 08:49 | XMS_ITS | Encounter Summary ---
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 Gender Identity Not on file Sexual Orientation [...] GLUCOSE POC 117(H) 60 - 100 mg/dL [facility] Venous blood specimen (specimen) 04/28/2008 12:22 PM CDT 04/29/2008 1:49 AM CDT us Riky Mejía MD POINT OF CARE TESTING Final Result Performing Organization Address [facility] de Phone Number INTERFACE SYSTEM Refer to clinic/hospital department [facility] CLIA# [id number] [address] [place] [address] * (ABNORMAL) POC GLUCOSE (04/28/2008 6:07 AM CDT) GLUCOSE POC 132(H) 60 - 100 mg/dL [facility] Venous blood specimen (specimen) 04/28/2008 6:07 AM CDT 04/29/2008 1:56 AM CDT us Riky Mejía MD POINT OF CARE TESTING Final Result Performing Organization Address [facility] Phone Number INTERFACE SYSTEM Refer to clinic/hospital department [facility] CLIA# [id number] [facility] [place] [address] * (ABNORMAL) BASIC METABOLIC PANEL (04/28/2008 5:15 AM CDT) ANION GAP 10 9 - 20 mEq/L [facility] SODIUM 137 136 - 145 mEq/L [facility] BUN 13 7 - 17 mg/dL [facility] CO2 30 22 - 32 mmol/l [facility] POTASSIUM 4.5 3.5 - 5.0 mEq/L [facility] Comment: Specimen slightly hemolyzed OSMOLALITY, CALCULATED 284 275 - 295 mOsm/Kg [facility] CREATININE 0.6(L) 0.7 - 1.2 mg/dL [facility] CALCIUM 9.0 8.4 - 10.5 mg/dL [facility] GLUCOSE 112(H) 70 - 110 mg/dL [facility] CHLORIDE 102 95 - 110 mEq/L [facility] Blood specimen (specimen) 04/28/2008 5:15 AM CDT 04/28/2008 5:29 AM CDT us Riky Mejía MD CHEMISTRY ORDERABLES Final Result Performing Organization Address [facility] de Phone Number INTERFACE SYSTEM Refer to clinic/hospital department [facility] CLIA# [id number] [address] [place] [address] * (ABNORMAL) POC GLUCOSE (04/27/2008 8:55 PM CDT) GLUCOSE POC 133(H) 60 - 100 mg/dL [facility] Venous blood specimen (specimen) 04/27/2008 8:55 PM CDT 04/28/2008 2:27 AM CDT us Riky Mejía MD POINT OF CARE TESTING Final Result Performing Organization Address [facility] Phone Number INTERFACE SYSTEM Refer to clinic/[facility] department [facility] CLIA# [id number] [facility] [place] [address] * (ABNORMAL) POC GLUCOSE (04/27/2008 4:38 PM CDT) GLUCOSE POC 112(H) 60 - 100 mg/dL [facility] COMMENT POC Follow Protocol [facility] Venous blood specimen (specimen) 04/27/2008 4:38 PM CDT 04/28/2008 12:35 AM CDT Riky Mejía MD POINT OF CARE TESTING Final Result Performing Organization Address [facility] de Phone Number INTERFACE SYSTEM Refer to clinic/hospital department [facility] CLIA# [id number] [address] [place] [address] * (ABNORMAL) POC GLUCOSE (04/27/2008 11:23 AM CDT) GLUCOSE POC 143(H) 60 - 100 mg/dL [facility] Venous blood specimen (specimen) 04/27/2008 11:23 AM CDT 04/28/2008 2:23 AM CDT Riky Mejía MD POINT OF CARE TESTING Final Result Performing Organization Address [facility] de Phone Number INTERFACE SYSTEM Refer to clinic/hospital department [facility] CLIA# [id number] [address] [place] [address] * (ABNORMAL) POC GLUCOSE (04/27/2008 6:38 AM CDT) GLUCOSE POC 122(H) 60 - 100 mg/dL [facility] Venous blood specimen (specimen) 04/27/2008 6:38 AM CDT 04/28/2008 2:33 AM CDT Riky Mejía MD POINT OF CARE TESTING Final Result Performing Organization Address [facility] de Phone Number INTERFACE SYSTEM Refer to clinic/[facility] CLIA# [id number] [address] [place] [address] * (ABNORMAL) POC GLUCOSE (04/26/2008 8:43 PM CDT) GLUCOSE POC 128(H) 60 - 100 mg/dL [facility] Venous blood specimen (specimen) 04/26/2008 8:43 PM CDT 04/27/2008 2:25 AM CDT Riky Mejía MD POINT OF CARE TESTING Final Result Performing Organization Address [facility] de Phone Number INTERFACE SYSTEM Refer to clinic/hospital department [facility] CLIA# [id number] [address] [place] [address] * (ABNORMAL) POC GLUCOSE (04/26/2008 4:53 PM CDT) GLUCOSE POC 113(H) 60 - 100 mg/dL [facility] Venous blood specimen (specimen) 04/26/2008 4:53 PM CDT 04/27/2008 2:26 AM CDT Riky Mejía MD POINT OF CARE TESTING Final Result Performing Organization Address [facility] Phone Number INTERFACE SYSTEM Refer to clinic/hospital department [facility] CLIA# [id number] [address] [place] [address] * (ABNORMAL) POC GLUCOSE (04/26/2008 11:28 AM CDT) GLUCOSE POC 125(H) 60 - 100 mg/dL [facility] Venous blood specimen (specimen) 04/26/2008 11:28 AM CDT 04/27/2008 2:25 AM CDT Riky Mejía MD POINT OF CARE TESTING Final Result Performing Organization Address [facility] de Phone Number INTERFACE SYSTEM Refer to clinic/hospital department [facility] CLIA# [id number] [address] [place] [address] * (ABNORMAL) POC GLUCOSE (04/26/2008 5:36 AM CDT) GLUCOSE POC 123(H) 60 - 100 mg/dL [facility] Venous blood specimen (specimen) 04/26/2008 5:36 AM CDT 04/27/2008 2:25 AM CDT Riky Mejía MD POINT OF CARE TESTING Final Result Performing Organization Address [facility] Phone Number INTERFACE SYSTEM Refer to clinic/hospital department [facility] CLIA# [id number] [address] [place] [address] * (ABNORMAL) TRANSFERRIN (04/26/2008 4:02 AM CDT) TRANSFERRIN 121.0(L) 204.0 - 376.0 mg/dL [facility] Blood specimen (specimen) 04/26/2008 4:02 AM CDT 04/26/2008 4:19 AM CDT Riky Mejía MD CHEMISTRY ORDERABLES Final Result Performing Organization Address [facility] Phone Number INTERFACE SYSTEM Refer to clinic/hospital department [facility] CLIA# [id number] [address] [place] [address] * PREALBUMIN (04/26/2008 4:02 AM CDT) PREALBUMIN 22.2 14.0 - 32.0 mg/dL [facility] Blood specimen (specimen) 04/26/2008 4:02 AM CDT 04/26/2008 4:19 AM CDT Riky Mejía MD CHEMISTRY ORDERABLES Final Result Performing Organization Address [facility] Phone Number INTERFACE SYSTEM Refer to clinic/[facility] CLIA# [id number] [address] [place] [address] * (ABNORMAL) PROTIME-INR (04/26/2008 4:02 AM CDT) PROTIME 16.1(H) 12.8 - 15.8 Secs [facility] Comment:As of 2007 not e change in normal range. INR 1.2 [facility] Comment: Expected Values for INR: DVT/PE ?Goal INR 2.5; range 2.0 - 3.0 Valve Replacement ? Tissue ? Goal INR 2.5; range 2.0 - 3.0 ? Mechanical ?Goal INR 3.0; range 2.5 - 3.5 POST-IA ?Goal INR 2.5; range 2.0 - 3.0 ??or Goal 3.0; range 2.5 - 3.5 Atrial Fibrillation ?Goal INR 2.5; range 2.0 - 3.0 Ischemic Stroke ?Goal INR 2.5; range 2.0 - 3.0 For additional information see Guidelines for Anticoagulation available from the pharmacy [facility] ??[phone] Blood specimen (specimen) 04/26/2008 4:02 AM CDT 04/26/2008 4:19 AM CDT Riky Mejía MD HEMATOLOGY ORDERABLES Final Result INTERFACE SYSTEM Refer to clinic/hospital department [facility] CLIA# [id number] [address] [place] [address] * (ABNORMAL) CBC WITH DIFFERENTIAL (04/26/2008 4:02 AM CDT) BASOPHILS ABSOLUTE 0.1 0.0 - 0.2 K/ul [facility] HEMOGLOBIN 10.3(L) 12.0 - 16.0 g/dL [facility] MONOCYTES 11.6(H) 2.0 - 10.0 % [facility] RDW 18.2(H) 11.0 - 14.5 % [facility] MONOCYTE ABSOLUTE 0.9(H) 0.1 - 0.6 K/ul [facility] WBC 8.1 4.5 - 11.0 K/ul [facility] NEUTROPHILS 67.2 42.2 - 75.2 % [facility] MCH 29.3 27.0 - 34.0 pg [facility] NEUTROPHIL ABSOLUTE 5.5 2.0 - 8.0 K/ul [facility] HEMATOCRIT 33.7(L) 36.0 - 46.0 % [facility] PLATELETS 436 140 - 440 K/ul [facility] EOSINOPHIL ABSOLUTE 0.3 0.0 - 0.7 K/ul [facility] EOSINOPHILS 4.0 0.0 - 7.0 % [facility] PERIPHERAL BLOOD SMEAR REVIEW Automated Diff [facility] RBC 3.51(L) 4.20 - 5.40 Mil/ul [facility] MCHC 30.6 30.0 - 35.0 g/dL [facility] LYMPHOCYTE ABSOLUTE 1.3 1.2 - 4.0 K/ul [facility] LYMPHOCYTES 16.2(L) 24.0 - 44.0 % [facility] MCV 96.0 84.0 - 103.0 Fl [facility] BASOPHILS 1.0 0.0 - 1.0 % [facility] MPV 10.3 8.9 - 12.8 Fl [facility] Blood specimen (specimen) 04/26/2008 4:02 AM CDT 04/26/2008 4:19 AM CDT Narrative INTERFACE SYSTEM - 04/26/2008 4:35 AM CDT cbc with diff in am us Riky Mejía MD HEMATOLOGY ORDERABLES Final Result INTERFACE SYSTEM Refer to clinic/hospital department [facility] CLIA# [id number] [address] [place], [place] [id number] * MAGNESIUM LEVEL (04/26/2008 4:02 AM CDT) MAGNESIUM 2.0 1.7 - 2.4 mg/dL [facility] Blood specimen (specimen) 04/26/2008 4:02 AM CDT 04/26/2008 4:19 AM CDT us Riky Mejía MD CHEMISTRY ORDERABLES Final Result Performing Organization Address [facility] Phone Number INTERFACE SYSTEM Refer to clinic/hospital department [facility] CLIA# [id number] [address] [place] [address] * TRIGLYCERIDE (04/26/2008 4:02 AM CDT) TRIGLYCERIDE 137 0 - 150 mg/dL [facility] Comment: On 11/10/2007, [facility] changed the triglyceride reference range to 0-150 mg/dl. ??This is the recommendation of the National Cholesterol Education Program (NCEP-ATPIII). Blood specimen (specimen) 04/26/2008 4:02 AM CDT 04/26/2008 4:19 AM CDT us Riky Mejía MD CHEMISTRY ORDERABLES Final Result Performing Organization Address [facility] Phone Number INTERFACE SYSTEM Refer to clinic/hospital department [facility] CLIA# [id number] [address] [place] [address] * PHOSPHORUS (04/26/2008 4:02 AM CDT) PHOSPHORUS 4.1 2.5 - 4.6 mg/dL [facility] Blood specimen (specimen) 04/26/2008 4:02 AM CDT 04/26/2008 4:19 AM CDT us Riky Mejía MD CHEMISTRY ORDERABLES Final Result Performing Organization Address [facility]/ZIP Co de Phone Number INTERFACE SYSTEM Refer to clinic/hospital department [facility] CLIA# [id number] [facility] [address] * (ABNORMAL) COMPREHENSIVE METABOLIC PANEL (04/26/2008 4:02 AM CDT) OSMOLALITY, CALCULATED 284 275 - 295 mOsm/Kg [facility] GLOBULIN (CALC) 3.4 2.4 - 3.9 g/dL [facility] TOTAL PROTEIN 6.6 6.3 - 8.2 g/dL [facility] SODIUM 137 136 - 145 mEq/L [facility] BILIRUBIN TOTAL 0.8 0.3 - 1.2 mg/dL [facility] CO2 33(H) 22 - 32 mmol/l [facility] BUN 15 7 - 17 mg/dL [facility] AST 29 8 - 33 U/L [facility] ALBUMIN/GLOBULIN RATIO 0.9(L) 1.0 - 2.3 [facility] POTASSIUM 3.9 3.5 - 5.0 mEq/L [facility] ANION GAP 7(L) 9 - 20 mEq/L [facility] ALBUMIN 3.2(L) 3.5 - 5.0 g/dL [facility] CREATININE 0.6(L) 0.7 - 1.2 mg/dL [facility] ALT 27 4 - 36 IU/L [facility] CALCIUM 8.7 8.4 - 10.5 mg/dL [facility] GLUCOSE 110 70 - 110 mg/dL [facility] ALKALINE PHOSPHATASE 105(H) 25 - 100 U/L [facility] CHLORIDE 101 95 - 110 mEq/L [facility] Blood specimen (specimen) 04/26/2008 4:02 AM CDT 04/26/2008 4:19 AM CDT us Riky Mejía MD CHEMISTRY ORDERABLES Final Result INTERFACE SYSTEM Refer to clinic/hospital department [facility] CLIA# [id number] [address] [place] [address] * (ABNORMAL) BASIC METABOLIC PANEL (04/26/2008 4:02 AM CDT) GLUCOSE 110 70 - 110 mg/dL [facility] CHLORIDE 100 95 - 110 mEq/L [facility] ANION GAP 9 9 - 20 mEq/L [facility] SODIUM 137 136 - 145 mEq/L [facility] BUN 16 7 - 17 mg/dL [facility] CO2 32 22 - 32 mmol/l [facility] POTASSIUM 4.3 3.5 - 5.0 mEq/L [facility] OSMOLALITY, CALCULATED 285 275 - 295 mOsm/Kg [facility] CREATININE 0.5(L) 0.7 - 1.2 mg/dL [facility] CALCIUM 8.8 8.4 - 10.5 mg/dL [facility] Blood specimen (specimen) 04/26/2008 4:02 AM CDT 04/26/2008 4:19 AM CDT us Riky Mejía MD CHEMISTRY ORDERABLES Final Result Performing Organization Address City/[facility] de Phone Number INTERFACE SYSTEM Refer to clinic/hospital department [facility] CLIA# [id number] [address] [place] [address] * (ABNORMAL) POC GLUCOSE (04/25/2008 8:51 PM CDT) GLUCOSE POC 107(H) 60 - 100 mg/dL [facility] Venous blood specimen (specimen) 04/25/2008 8:51 PM CDT 04/26/2008 1:42 AM CDT us Riky Mejía MD POINT OF CARE TESTING Final Result Performing Organization Address City/[facility] Co de Phone Number INTERFACE SYSTEM Refer to clinic/hospital department [facility] CLIA# [id number] [address] [place] [address] * (ABNORMAL) POC GLUCOSE (04/25/2008 5:10 PM CDT) GLUCOSE POC 102(H) 60 - 100 mg/dL [facility] Venous blood specimen (specimen) 04/25/2008 5:10 PM CDT 04/26/2008 1:42 AM CDT Riky Mejía MD POINT OF CARE TESTING Final Result Performing Organization Address [facility] de Phone Number INTERFACE SYSTEM Refer to clinic/hospital department [facility] CLIA# [id number] [address] [place] [address] * (ABNORMAL) POC GLUCOSE (04/25/2008 10:45 AM CDT) GLUCOSE POC 114(H) 60 - 100 mg/dL [facility] Venous blood specimen (specimen) 04/25/2008 10:45 AM CDT 04/26/2008 1:42 AM CDT Riky Mejía MD POINT OF CARE TESTING Final Result Performing Organization Address [facility] de Phone Number INTERFACE SYSTEM Refer to clinic/hospital department [facility] CLIA# [id number] [address] [place] [address] * (ABNORMAL) POC GLUCOSE (04/25/2008 6:00 AM CDT) GLUCOSE POC 113(H) 60 - 100 mg/dL [facility] Venous blood specimen (specimen) 04/25/2008 6:00 AM CDT 04/26/2008 1:45 AM CDT Riky Mejía MD POINT OF CARE TESTING Final Result Performing Organization Address City/[facility] Co de Phone Number INTERFACE SYSTEM Refer to clinic/hospital department [facility] CLIA# [id number] [address] [place] [address] * (ABNORMAL) BASIC METABOLIC PANEL (04/25/2008 3:28 AM CDT) [facility] OSMOLALITY, CALCULATED 286 275 - 295 mOsm/Kg [facility] CREATININE 0.5(L) 0.7 - 1.2 mg/dL [facility] CALCIUM 8.9 8.4 - 10.5 mg/dL [facility] GLUCOSE 115(H) 70 - 110 mg/dL [facility] CHLORIDE 101 95 - 110 mEq/L [facility] SODIUM 136 136 - 145 mEq/L [facility] ANION GAP 10 9 - 20 mEq/L [facility] BUN 20(H) 7 - 17 mg/dL [facility] CO2 30 22 - 32 mmol/l [facility] POTASSIUM 4.9 3.5 - 5.0 mEq/L [facility] Blood specimen (specimen) 04/25/2008 3:28 AM CDT 04/25/2008 3:31 AM CDT us Riky Mejía MD CHEMISTRY ORDERABLES Final Result Performing Organization Address City/[facility] Co de Phone Number INTERFACE SYSTEM Refer to clinic/hospital department [facility] CLIA# [id number] [facility] [place] [address] * (ABNORMAL) POC GLUCOSE (04/24/2008 8:30 PM CDT) [facility] GLUCOSE POC 121(H) 60 - 100 mg/dL [facility] Venous blood specimen (specimen) 04/24/2008 8:30 PM CDT 04/25/2008 1:43 AM CDT us Riky Mejía MD POINT OF CARE TESTING Final Result Performing Organization Address City/[facility] Co de Phone Number INTERFACE SYSTEM Refer to clinic/hospital department [facility] CLIA# [id number] [address] [place] [address] * (ABNORMAL) POC GLUCOSE (04/24/2008 5:10 PM CDT) GLUCOSE POC 109(H) 60 - 100 mg/dL [facility] Venous blood specimen (specimen) 04/24/2008 5:10 PM CDT 04/25/2008 1:43 AM CDT Riky Mejía MD POINT OF CARE TESTING Final Result Performing Organization Address [facility] de Phone Number INTERFACE SYSTEM Refer to clinic/hospital department [facility] CLIA# [id number] [address] [place] [address] * (ABNORMAL) POC GLUCOSE (04/24/2008 1:53 PM CDT) GLUCOSE POC 113(H) 60 - 100 mg/dL [facility] Venous blood specimen (specimen) 04/24/2008 1:53 PM CDT 04/25/2008 1:50 AM CDT Riky Mejía MD POINT OF CARE TESTING Final Result Performing Organization Address [facility] de Phone Number INTERFACE SYSTEM Refer to clinic/hospital department [facility] CLIA# [id number] [address] [place] [address] * (ABNORMAL) POC GLUCOSE (04/24/2008 11:40 AM CDT) GLUCOSE POC 160(H) 60 - 100 mg/dL [facility] Venous blood specimen (specimen) 04/24/2008 11:40 AM CDT 04/25/2008 1:50 AM CDT Riky Mejía MD POINT OF CARE TESTING Final Result Performing Organization Address City/[facility] Co de Phone Number INTERFACE SYSTEM Refer to clinic/hospital department [facility] CLIA# [id number] [address] [place] [address] * (ABNORMAL) POC GLUCOSE (04/24/2008 5:45 AM CDT) [facility] GLUCOSE POC 129(H) 60 - 100 mg/dL [facility] Venous blood specimen (specimen) 04/24/2008 5:45 AM CDT 04/25/2008 1:46 AM CDT Riky Mejía MD POINT OF CARE TESTING Final Result INTERFACE SYSTEM Refer to clinic/hospital department [facility] CLIA# [id number] [address] [place] [address] * (ABNORMAL) CBC WITH DIFFERENTIAL (04/24/2008 3:09 AM CDT) [facility] WBC 10.5 4.5 - 11.0 K/ul [facility] MCH 29.4 27.0 - 34.0 pg [facility] NEUTROPHIL ABSOLUTE 7.1 2.0 - 8.0 K/ul [facility] NEUTROPHILS 67.1 42.2 - 75.2 % [facility] HEMATOCRIT 32.8(L) 36.0 - 46.0 % [facility] EOSINOPHILS 4.3 0.0 - 7.0 % [facility] PLATELETS 491(H) 140 - 440 K/ul [facility] PERIPHERAL BLOOD SMEAR REVIEW Automated Diff [facility] EOSINOPHIL ABSOLUTE 0.5 0.0 - 0.7 K/ul [facility] RBC 3.44(L) 4.20 - 5.40 Mil/ul [facility] LYMPHOCYTES 17.3(L) 24.0 - 44.0 % [facility] MCHC 30.8 30.0 - 35.0 g/dL [facility] LYMPHOCYTE ABSOLUTE 1.8 1.2 - 4.0 K/ul [facility] MCV 95.3 84.0 - 103.0 Fl [facility] MPV 10.4 8.9 - 12.8 Fl [facility] BASOPHILS ABSOLUTE 0.1 0.0 - 0.2 K/ul [facility] BASOPHILS 1.3(H) 0.0 - 1.0 % [facility] HEMOGLOBIN 10.1(L) 12.0 - 16.0 g/dL [facility] RDW 17.8(H) 11.0 - 14.5 % [facility] MONOCYTE ABSOLUTE 1.1(H) 0.1 - 0.6 K/ul [facility] MONOCYTES 10.0 2.0 - 10.0 % [facility] Blood specimen (specimen) 04/24/2008 3:09 AM CDT 04/24/2008 3:21 AM CDT us Riky Mejía MD HEMATOLOGY ORDERABLES Final Result Performing Organization Address City/State/[facility] Co de Phone Number INTERFACE SYSTEM Refer to clinic/hospital department [facility] CLIA# [id number] [address] [place] [address] * (ABNORMAL) BASIC METABOLIC PANEL (04/24/2008 3:09 AM CDT) BUN 20(H) 7 - 17 mg/dL [facility] CO2 31 22 - 32 mmol/l [facility] POTASSIUM 4.6 3.5 - 5.0 mEq/L [facility] OSMOLALITY, CALCULATED 286 275 - 295 mOsm/Kg [facility] CREATININE 0.5(L) 0.7 - 1.2 mg/dL [facility] CALCIUM 8.8 8.4 - 10.5 mg/dL [facility] GLUCOSE 106 70 - 110 mg/dL [facility] CHLORIDE 100 95 - 110 mEq/L [facility] ANION GAP 11 9 - 20 mEq/L [facility] SODIUM 137 136 - 145 mEq/L [facility] Blood specimen (specimen) 04/24/2008 3:09 AM CDT 04/24/2008 3:21 AM CDT us Riky Mejía MD CHEMISTRY ORDERABLES Final Result Performing Organization Address [facility] de Phone Number INTERFACE SYSTEM Refer to clinic/[facility] CLIA# [id number] [place] [address] * (ABNORMAL) POC GLUCOSE (04/23/2008 8:56 PM CDT) GLUCOSE POC 132(H) 60 - 100 mg/dL [facility] Venous blood specimen (specimen) 04/23/2008 8:56 PM CDT 04/24/2008 1:58 AM CDT us Riky Mejía MD POINT OF CARE TESTING Final Result Performing Organization Address [facility] de Phone Number INTERFACE SYSTEM Refer to clinic/hospital department [facility] CLIA# [id number] [address] [place] [address] * (ABNORMAL) POC GLUCOSE (04/23/2008 4:37 PM CDT) GLUCOSE POC 129(H) 60 - 100 mg/dL [facility] Venous blood specimen (specimen) 04/23/2008 4:37 PM CDT 04/24/2008 1:58 AM CDT us Riky Mejía MD POINT OF CARE TESTING Final Result Performing Organization Address [facility] de Phone Number INTERFACE SYSTEM Refer to clinic/[facility] CLIA# [id number] [address] [place] [address] * (ABNORMAL) POC GLUCOSE (04/23/2008 11:23 AM CDT) GLUCOSE POC 147(H) 60 - 100 mg/dL [facility] Venous blood specimen (specimen) 04/23/2008 11:23 AM CDT 04/24/2008 7:04 AM CDT Riky Mejía MD POINT OF CARE TESTING Final Result Performing Organization Address [facility] de Phone Number INTERFACE SYSTEM Refer to clinic/hospital department [facility] CLIA# [id number] [address] [place] [address] * (ABNORMAL) POC GLUCOSE (04/23/2008 7:53 AM CDT) GLUCOSE POC 160(H) 60 - 100 mg/dL [facility] Venous blood specimen (specimen) 04/23/2008 7:53 AM CDT 04/24/2008 7:05 AM CDT us Riky Mejía MD POINT OF CARE TESTING Final Result Performing Organization Address [facility] Phone Number INTERFACE SYSTEM Refer to clinic/hospital department [facility] CLIA# [id number] [facility]ly [facility] [place] [address] * (ABNORMAL) BASIC METABOLIC PANEL (04/23/2008 3:33 AM CDT) BUN 18(H) 7 - 17 mg/dL [facility] CO2 30 22 - 32 mmol/l [facility] POTASSIUM 4.2 3.5 - 5.0 mEq/L [facility] OSMOLALITY, CALCULATED 283 275 - 295 mOsm/Kg [facility] CREATININE 0.4(L) 0.7 - 1.2 mg/dL [facility] CALCIUM 8.4 8.4 - 10.5 mg/dL [facility] GLUCOSE 131(H) 70 - 110 mg/dL [facility] CHLORIDE 104 95 - 110 mEq/L [facility] ANION GAP 5(L) 9 - 20 mEq/L [facility] SODIUM 135(L) 136 - 145 mEq/L [facility] Blood specimen (specimen) 04/23/2008 3:33 AM CDT 04/23/2008 3:39 AM CDT Riky Mejía MD CHEMISTRY ORDERABLES Final Result Performing Organization Address [facility] de Phone Number INTERFACE SYSTEM Refer to [facility] CLIA# [id number] [address] [place] [address] * (ABNORMAL) POC GLUCOSE (04/23/2008 3:22 AM CDT) GLUCOSE POC 130(H) 60 - 100 mg/dL [facility] Venous blood specimen (specimen) 04/23/2008 3:22 AM CDT 04/24/2008 7:07 AM CDT us Riky Mejía MD POINT OF CARE TESTING Final Result Performing Organization Address [facility] de Phone Number INTERFACE SYSTEM Refer to clinic/hospital department [facility] CLIA# [id number] [address] [place] [address] * (ABNORMAL) POC GLUCOSE (04/22/2008 11:30 PM CDT) GLUCOSE POC 155(H) 60 - 100 mg/dL [facility] Venous blood specimen (specimen) 04/22/2008 11:30 PM CDT 04/23/2008 7:12 AM CDT us Riky Mejía MD POINT OF CARE TESTING Final Result Performing Organization Address [facility] de Phone Number INTERFACE SYSTEM Refer to clinic/[facility] CLIA# [id number] [address] [place] [address] * (ABNORMAL) POC GLUCOSE (04/22/2008 7:54 PM CDT) GLUCOSE POC 158(H) 60 - 100 mg/dL [facility] Venous blood specimen (specimen) 04/22/2008 7:54 PM CDT 04/23/2008 3:46 PM CDT Riky Mejía MD POINT OF CARE TESTING Final Result Performing Organization Address [facility] de Phone Number INTERFACE SYSTEM Refer to clinic/hospital department [facility] CLIA# [id number] [address] [place] [address] * (ABNORMAL) POC GLUCOSE (04/22/2008 4:09 PM CDT) GLUCOSE POC 129(H) 60 - 100 mg/dL [facility] Venous blood specimen (specimen) 04/22/2008 4:09 PM CDT 04/23/2008 3:46 PM CDT us Riky Mejía MD POINT OF CARE TESTING Final Result Performing Organization Address [facility] de Phone Number INTERFACE SYSTEM Refer to clinic/hospital department [facility] CLIA# [id number] [address] [place] [address] * (ABNORMAL) POC GLUCOSE (04/22/2008 11:36 AM CDT) GLUCOSE POC 118(H) 60 - 100 mg/dL [facility] Venous blood specimen (specimen) 04/22/2008 11:36 AM CDT 04/23/2008 7:12 AM CDT us Riky Mejía MD POINT OF CARE TESTING Final Result Performing Organization Address [facility] de Phone Number INTERFACE SYSTEM Refer to clinic/hospital [facility] CLIA# [id number] [address] [place] [address] * (ABNORMAL) POC GLUCOSE (04/22/2008 7:55 AM CDT) GLUCOSE POC 160(H) 60 - 100 mg/dL [facility] Venous blood specimen (specimen) 04/22/2008 7:55 AM CDT 04/24/2008 7:07 AM CDT us Riky Mejía MD POINT OF CARE TESTING Final Result Performing Organization Address [facility] de Phone Number INTERFACE SYSTEM Refer to clinic/hospital department [facility] CLIA# [id number] [address] [place] [address] * (ABNORMAL) BASIC METABOLIC PANEL (04/22/2008 3:26 AM CDT) BUN 15 7 - 17 mg/dL [facility] CO2 28 22 - 32 mmol/l [facility] OSMOLALITY, CALCULATED 300(H) 275 - 295 mOsm/Kg [facility] POTASSIUM 3.0(L) 3.5 - 5.0 mEq/L [facility] CREATININE 0.2(L) 0.7 - 1.2 mg/dL [facility] CALCIUM 6.7(L) 8.4 - 10.5 mg/dL [facility] GLUCOSE 109 70 - 110 mg/dL [facility] CHLORIDE 109 95 - 110 mEq/L [facility] SODIUM 147(H) 136 - 145 mEq/L [facility] ANION GAP 13 9 - 20 mEq/L [facility] Blood specimen (specimen) 04/22/2008 3:26 AM CDT 04/22/2008 3:31 AM CDT us Riky Mejía MD CHEMISTRY ORDERABLES Final Result Performing Organization Address [facility] de Phone Number INTERFACE SYSTEM Refer to clinic/hospital department [facility] CLIA# [id number] [address] [place] [address] * POC GLUCOSE (04/22/2008 3:17 AM CDT) GLUCOSE POC 73 60 - 100 mg/dL [facility] Venous blood specimen (specimen) 04/22/2008 3:17 AM CDT 04/22/2008 6:51 AM CDT us Riky Mejía MD POINT OF CARE TESTING Final Result Performing Organization Address [facility] de Phone Number INTERFACE SYSTEM Refer to clinic/hospital department [facility] CLIA# [id number] [address] [place] [address] * (ABNORMAL) POC GLUCOSE (04/21/2008 11:17 PM CDT) GLUCOSE POC 130(H) 60 - 100 mg/dL [facility] Venous blood specimen (specimen) 04/21/2008 11:17 PM CDT 04/22/2008 6:51 AM CDT us Riky Mejía MD POINT OF CARE TESTING Final Result Performing Organization Address [facility] Phone Number INTERFACE SYSTEM Refer to clinic/hospital department [facility] CLIA# [id number] [address] [place] [address] * (ABNORMAL) POC GLUCOSE (04/21/2008 7:59 PM CDT) GLUCOSE POC 135(H) 60 - 100 mg/dL [facility] Venous blood specimen (specimen) 04/21/2008 7:59 PM CDT 04/22/2008 6:51 AM CDT Riky Mejía MD POINT OF CARE TESTING Final Result Performing Organization Address [facility] de Phone Number INTERFACE SYSTEM Refer to clinic/hospital department [facility] CLIA# [id number] [address] [place] [address] * (ABNORMAL) POC GLUCOSE (04/21/2008 4:29 PM CDT) GLUCOSE POC 144(H) 60 - 100 mg/dL [facility] COMMENT POC Follow Protocol [facility] Venous blood specimen (specimen) 04/21/2008 4:29 PM CDT 04/22/2008 6:51 AM CDT Riky Mejía MD POINT OF CARE TESTING Final Result Performing Organization Address [facility] de Phone Number INTERFACE SYSTEM Refer to clinic/hospital department [facility] CLIA# [id number] [address] [place] [address] * (ABNORMAL) POC GLUCOSE (04/21/2008 1:17 PM CDT) COMMENT POC Follow Protocol [facility] GLUCOSE POC 145(H) 60 - 100 mg/dL [facility] Venous blood specimen (specimen) 04/21/2008 1:17 PM CDT 04/22/2008 6:51 AM CDT us Riky Mejía MD POINT OF CARE TESTING Final Result Performing Organization Address [facility] de Phone Number INTERFACE SYSTEM Refer to clinic/hospital department [facility] CLIA# [id number] [address] [place] [address] * POTASSIUM LEVEL (04/21/2008 7:33 AM CDT) Pathologist [facility] POTASSIUM 4.2 3.5 - 5.0 mEq/L [facility] Comment: Specimen slightly hemolyzed Blood specimen (specimen) 04/21/2008 7:33 AM CDT 04/21/2008 7:33 AM CDT Riky Mejía MD CHEMISTRY ORDERABLES Final Result Performing Organization Address [facility] de Phone Number INTERFACE SYSTEM Refer to clinic/hospital department [facility] CLIA# [id number] [address] [place] [address] * (ABNORMAL) POC GLUCOSE (04/21/2008 7:26 AM CDT) GLUCOSE POC 146(H) 60 - 100 mg/dL [facility] Venous blood specimen (specimen) 04/21/2008 7:26 AM CDT 04/22/2008 6:51 AM CDT Riky Mejía MD POINT OF CARE TESTING Final Result Performing Organization Address [facility] Phone Number INTERFACE SYSTEM Refer to clinic/hospital department [facility] CLIA# [id number] [address] [place] [address] * (ABNORMAL) POC GLUCOSE (04/21/2008 2:58 AM CDT) [facility] GLUCOSE POC 128(H) 60 - 100 mg/dL [facility] Venous blood specimen (specimen) 04/21/2008 2:58 AM CDT 04/21/2008 7:32 AM CDT Riky Mejía MD POINT OF CARE TESTING Final Result Performing Organization Address [facility] Phone Number INTERFACE SYSTEM Refer to clinic/hospital department [facility] CLIA# [id number] [address] [place] [address] * (ABNORMAL) BASIC METABOLIC PANEL (04/21/2008 2:00 AM CDT) [facility] ANION GAP 7(L) 9 - 20 mEq/L [facility] SODIUM 137 136 - 145 mEq/L [facility] BUN 19(H) 7 - 17 mg/dL [facility] CO2 36(H) 22 - 32 mmol/l [facility] POTASSIUM 3.8 3.5 - 5.0 mEq/L [facility] OSMOLALITY, CALCULATED 287 275 - 295 mOsm/Kg [facility] CREATININE 0.4(L) 0.7 - 1.2 mg/dL [facility] CALCIUM 8.4 8.4 - 10.5 mg/dL [facility] GLUCOSE 142(H) 70 - 110 mg/dL [facility] CHLORIDE 98 95 - 110 mEq/L [facility] Blood specimen (specimen) 04/21/2008 2:00 AM CDT 04/21/2008 2:00 AM CDT Riky Mejía MD CHEMISTRY ORDERABLES Final Result Performing Organization Address [facility] Phone Number INTERFACE SYSTEM Refer to clinic/hospital department [facility] CLIA# [id number] [address] [place] [address] * (ABNORMAL) POC GLUCOSE (04/20/2008 11:57 PM CDT) GLUCOSE POC 142(H) 60 - 100 mg/dL [facility] Venous blood specimen (specimen) 04/20/2008 11:57 PM CDT 04/21/2008 12:09 AM CDT Riky Mejía MD POINT OF CARE TESTING Final Result Performing Organization Address [facility] Phone Number INTERFACE SYSTEM Refer to clinic/hospital department [facility] CLIA# [id number] [address] [place] [address] * (ABNORMAL) BASIC METABOLIC PANEL (04/20/2008 11:40 PM CDT) POTASSIUM 3.8 3.5 - 5.0 mEq/L [facility] Comment: Specimen slightly hemolyzed OSMOLALITY, CALCULATED 286 275 - 295 mOsm/Kg [facility] CREATININE 0.5(L) 0.7 - 1.2 mg/dL [facility] CALCIUM 8.7 8.4 - 10.5 mg/dL [facility] GLUCOSE 119(H) 70 - 110 mg/dL [facility] CHLORIDE 95 95 - 110 mEq/L [facility] ANION GAP 13 9 - 20 mEq/L [facility] SODIUM 137 136 - 145 mEq/L [facility] BUN 20(H) 7 - 17 mg/dL [facility] CO2 33(H) 22 - 32 mmol/l [facility] Blood specimen (specimen) 04/20/2008 11:40 PM CDT 04/21/2008 5:43 AM CDT Riky Mejía MD CHEMISTRY ORDERABLES Final Result Performing Organization Address [facility] Phone Number INTERFACE SYSTEM Refer to clinic/hospital department [facility] CLIA# [id number] [address] [place] [address] * (ABNORMAL) POC GLUCOSE (04/20/2008 7:17 PM CDT) GLUCOSE POC 134(H) 60 - 100 mg/dL [facility] Venous blood specimen (specimen) 04/20/2008 7:17 PM CDT 04/21/2008 12:00 AM CDT Riky Mejía MD POINT OF CARE TESTING Final Result Performing Organization Address [facility] Phone Number INTERFACE SYSTEM Refer to clinic/hospital [facility] CLIA# [id number] [address] [place] [address] * POTASSIUM LEVEL (04/20/2008 4:09 PM CDT) POTASSIUM 4.1 3.5 - 5.0 mEq/L [facility] Blood specimen (specimen) 04/20/2008 4:09 PM CDT 04/20/2008 4:09 PM CDT Riky Mejía MD CHEMISTRY ORDERABLES Final Result Performing Organization Address [facility] Phone Number INTERFACE SYSTEM Refer to clinic/[facility] CLIA# [id number] [address] [place] [address] * (ABNORMAL) POC GLUCOSE (04/20/2008 3:59 PM CDT) GLUCOSE POC 118(H) 60 - 100 mg/dL [facility] Venous blood specimen (specimen) 04/20/2008 3:59 PM CDT 04/21/2008 12:00 AM CDT Riky Mejía MD POINT OF CARE TESTING Final Result Performing Organization Address [facility] Phone Number INTERFACE SYSTEM Refer to clinic/hospital department [facility] CLIA# [id number] [address] [place] [address] * (ABNORMAL) POC GLUCOSE (04/20/2008 12:02 PM CDT) GLUCOSE POC 158(H) 60 - 100 mg/dL [facility] Venous blood specimen (specimen) 04/20/2008 12:02 PM CDT 04/21/2008 12:00 AM CDT Riky Mejía MD POINT OF CARE TESTING Final Result Performing Organization Address [facility] Phone Number INTERFACE SYSTEM Refer to clinic/hospital department [facility] CLIA# [id number] [address] [place] [address] * (ABNORMAL) POC ISTAT EG 7+ (04/20/2008 10:06 AM CDT) SPECIMEN TYPE Arterial [facility] Comment: Test Performed By [id number] Pulse OX: 97 Hemoglobin calculated from Hematocrit result PCO2 TEMP CORRECT 48(H) 35 - 45 mmHg [facility] HEMOGLOBIN POC 10.5 +/-3 g/dL 12.0 - 16.0 g/dL [facility] POTASSIUM 3.8 3.5 - 4.9 mEq/L [facility] PH TEMP CORRECT 7.47(H) 7.35 - 7.45 Unit [facility] HCO3 (CALC) POC 35.4(H) 22.0 - 26.0 mmol/l [facility] TCO2 (CALC) POC 37(H) 23 - 27 mmol/l [facility] FIO2 40 [facility] PO2 90 80 - 105 mmHg [facility] CALCIUM IONIZED 1.06(L) 1.12 - 1.32 mmol/l [facility] HEMATOCRIT ABG 31(L) 38 - 51 % [facility] PCO2 POC 48(H) 35 - 45 mmHg [facility] SODIUM 134(L) 138 - 146 mEq/L [facility] BASE EXCESS 12(H) -2 - 3 mmol/l [facility] PH 7.47(H) 7.35 - 7.45 Unit [facility] O2 SATURATION 97 95 - 98 % [facility] PO2 TEMP CORRECT 90 80 - 105 mmHg [facility] Arterial blood specimen (specimen) 04/20/2008 10:06 AM CDT 04/20/2008 11:14 AM CDT Riky Mejía MD POINT OF CARE TESTING COM F inal Result Performing Organization Address [facility] Phone Number INTERFACE SYSTEM Refer to clinic/hospital department [facility] CLIA# [id number] [address] [place] [address] * POTASSIUM LEVEL (04/20/2008 7:15 AM CDT) POTASSIUM 4.5 3.5 - 5.0 mEq/L [facility] Blood specimen (specimen) 04/20/2008 7:15 AM CDT 04/20/2008 7:20 AM CDT Riky Mejía MD CHEMISTRY ORDERABLES Final Result Performing Organization Address [facility] Phone Number INTERFACE SYSTEM Refer to clinic/hospital department [facility] CLIA# [id number] [address] [place] [address] * (ABNORMAL) POC GLUCOSE (04/20/2008 7:11 AM CDT) GLUCOSE POC 138(H) 60 - 100 mg/dL [facility] Venous blood specimen (specimen) 04/20/2008 7:11 AM CDT 04/20/2008 11:59 PM CDT Riky Mejía MD POINT OF CARE TESTING Final Result INTERFACE SYSTEM Refer to clinic/hospital department [facility] CLIA# [id number] [address] [place] [address] * (ABNORMAL) POC ISTAT EG 7+ (04/20/2008 4:30 AM CDT) FIO2 30 [facility] HEMATOCRIT ABG 29(L) 38 - 51 % [facility] PO2 84 80 - 105 mmHg [facility] CALCIUM IONIZED 1.11(L) 1.12 - 1.32 mmol/l [facility] PCO2 POC 44 35 - 45 mmHg [facility] BASE EXCESS 14(H) -2 - 3 mmol/l [facility] SODIUM 131(L) 138 - 146 mEq/L [facility] PH 7.53(H) 7.35 - 7.45 Unit [facility] PO2 TEMP CORRECT 84 80 - 105 mmHg [facility] O2 SATURATION 97 95 - 98 % [facility] SPECIMEN TYPE Arterial [facility] Comment: Test Performed By [id number] PEEP: 06 Pressure Support: 14 Pulse OX: 96 Hemoglobin calculated from Hematocrit result PCO2 TEMP CORRECT 44 35 - 45 mmHg [facility] POTASSIUM 4.0 3.5 - 4.9 mEq/L [facility] HEMOGLOBIN POC 9.9 +/-3 g/dL 12.0 - 16.0 g/dL [facility] PH TEMP CORRECT 7.53(H) 7.35 - 7.45 Unit [facility] TCO2 (CALC) POC 38(H) 23 - 27 mmol/l [facility] HCO3 (CALC) POC 36.4(H) 22.0 - 26.0 mmol/l [facility] Arterial blood specimen (specimen) 04/20/2008 4:30 AM CDT 04/20/2008 5:54 AM CDT us Riky Mejía MD POINT OF CARE TESTING COM F inal Result Performing Organization Address [facility] Phone Number INTERFACE SYSTEM Refer to clinic/hospital department [facility] CLIA# [id number] [address] [place] [address] * (ABNORMAL) DIFFERENTIAL, MANUAL (04/20/2008 4:04 AM CDT) POIKILOCYTES 1+(A) None Seen [facility] MONOCYTE 9 4 - 10 % [facility] RBC MORPHOLOGY Abnormal(A ) Normal [facility] BANDS 11(H) 0 - 6 % [facility] POLYCHROMASIA 1+(A) None Seen [facility] EOSINOPHILS 1 0 - 3 % [facility] ANISOCYTOSIS 1+(A) None Seen [facility] PLATELET EST. Normal Normal [facility] LYMPHOCYTES 17(L) 24 - 44 % [facility] NEUTROPHILS, SEG 62 36 - 66 % [facility] Blood specimen (specimen) 04/20/2008 4:04 AM CDT 04/20/2008 4:16 AM CDT Narrative INTERFACE SYSTEM - 04/20/2008 5:12 AM CDT Differential ordered by policy. us Riky Mejía MD HEMATOLOGY ORDERABLES COM F inal Result Performing Organization Address [facility] Phone Number INTERFACE SYSTEM Refer to clinic/hospital department [facility] CLIA# [id number] [address] [place] [address] * (ABNORMAL) PT AND APTT (04/20/2008 4:04 AM CDT) PTT 31.3 22.5 - 36.5 Secs [facility] Comment: Therapeutic Range: ?? Hi-level PE/DVT heparin protocol 80.1 -95.0 ??sec ? Lo-level PE/DVT ??heparin protocol ??67.1 - ??80.0 sec ?? Cardiac Heparin Protocol 67.1 - 85.0 sec ?? Neuro Heparin Protocol 67.1 - 80.0 sec As of 09/25/2007 note change in APTT Normal Range. PROTIME 17.4(H) 12.8 - 15.8 Secs [facility] Comment:As of 2007 not e change in normal range. INR 1.3 [facility] Comment: Expected Values for INR: DVT/PE ?Goal INR 2.5; range 2.0 - 3.0 Valve Replacement ? Tissue ? Goal INR 2.5; range 2.0 - 3.0 ? Mechanical ?Goal INR 3.0; range 2.5 - 3.5 POST-IA ?Goal INR 2.5; range 2.0 - 3.0 ??or Goal 3.0; range 2.5 - 3.5 Atrial Fibrillation ?Goal INR 2.5; range 2.0 - 3.0 Ischemic Stroke ?Goal INR 2.5; range 2.0 - 3.0 For additional information see Guidelines for Anticoagulation available from the pharmacy [facility] ??[phone] Blood specimen (specimen) 04/20/2008 4:04 AM CDT 04/20/2008 4:16 AM CDT us Riky Mejía MD HEMATOLOGY ORDERABLES Edite d INTERFACE SYSTEM Refer to clinic/hospital department [facility] CLIA# [id number] [address] [place] [address] * (ABNORMAL) CBC WITH DIFFERENTIAL (04/20/2008 4:04 AM CDT) Pathologist [facility] HEMATOCRIT 30.6(L) 36.0 - 46.0 % [facility] PLATELETS 436 140 - 440 K/ul [facility] RBC 3.30(L) 4.20 - 5.40 Mil/ul [facility] MCHC 32.0 30.0 - 35.0 g/dL [facility] MCV 92.7 84.0 - 103.0 Fl [facility] MPV 10.2 8.9 - 12.8 Fl [facility] HEMOGLOBIN 9.8(L) 12.0 - 16.0 g/dL [facility] RDW 17.3(H) 11.0 - 14.5 % [facility] WBC 13.0(H) 4.5 - 11.0 K/ul [facility] MCH 29.7 27.0 - 34.0 pg [facility] Blood specimen (specimen) 04/20/2008 4:04 AM CDT 04/20/2008 4:16 AM CDT us Riky Mejía MD HEMATOLOGY ORDERABLES Edite d INTERFACE SYSTEM Refer to clinic/hospital department [facility] CLIA# [id number] [address] [place] [address] * (ABNORMAL) BASIC METABOLIC PANEL (04/20/2008 4:04 AM CDT) Pathologist [facility] BUN 19(H) 7 - 17 mg/dL [facility] CO2 33(H) 22 - 32 mmol/l [facility] POTASSIUM 4.1 3.5 - 5.0 mEq/L [facility] OSMOLALITY, CALCULATED 280 275 - 295 mOsm/Kg [facility] CREATININE 0.5(L) 0.7 - 1.2 mg/dL [facility] CALCIUM 8.6 8.4 - 10.5 mg/dL [facility] GLUCOSE 146(H) 70 - 110 mg/dL [facility] CHLORIDE 97 95 - 110 mEq/L [facility] ANION GAP 7(L) 9 - 20 mEq/L [facility] SODIUM 133(L) 136 - 145 mEq/L [facility] Blood specimen (specimen) 04/20/2008 4:04 AM CDT 04/20/2008 4:40 AM CDT Riky Mejía MD CHEMISTRY ORDERABLES Final Result Performing Organization Address [facility] Phone Number INTERFACE SYSTEM Refer to clinic/hospital department [facility] CLIA# [id number] [place] [address] * (ABNORMAL) POC GLUCOSE (04/20/2008 3:59 AM CDT) GLUCOSE POC 160(H) 60 - 100 mg/dL [facility] Venous blood specimen (specimen) 04/20/2008 3:59 AM CDT 04/20/2008 6:38 AM CDT Riky Mejía MD POINT OF CARE TESTING Final Result Performing Organization Address [facility] de Phone Number INTERFACE SYSTEM Refer to clinic/hospital department [facility] CLIA# [id number] [address] [place] [id number] * POTASSIUM LEVEL (04/19/2008 11:37 PM CDT) POTASSIUM 4.3 3.5 - 5.0 mEq/L [facility] Blood specimen (specimen) 04/19/2008 11:37 PM CDT 04/19/2008 11:46 PM CDT Riky Mejía MD CHEMISTRY ORDERABLES Final Result Performing Organization Address [facility] de Phone Number INTERFACE SYSTEM Refer to clinic/hospital department [facility] CLIA# [id number] [address] [place] [address] * (ABNORMAL) POC GLUCOSE (04/19/2008 11:30 PM CDT) GLUCOSE POC 156(H) 60 - 100 mg/dL [facility] Venous blood specimen (specimen) 04/19/2008 11:30 PM CDT 04/20/2008 6:37 AM CDT us Riky Mejía MD POINT OF CARE TESTING Final Result Performing Organization Address [facility] Phone Number INTERFACE SYSTEM Refer to clinic/hospital department [facility] CLIA# [id number] [address] [place] [address] * (ABNORMAL) DIFFERENTIAL, MANUAL (04/19/2008 8:35 PM CDT) [facility] MONOCYTE 12(H) 4 - 10 % [facility] ANISOCYTOSIS 1+(A) None Seen [facility] BANDS 18(H) 0 - 6 % [facility] PLATELET EST. Normal Normal [facility] METAMYELOCYTE 2(H) 0 - 1 % [facility] POLYCHROMASIA 1+(A) None Seen [facility] LYMPHOCYTES 6(L) 24 - 44 % [facility] RBC MORPHOLOGY Abnormal(A ) Normal [facility] NEUTROPHILS, SEG 57 36 - 66 % [facility] MYELOCYTES 5(H) <=1 % [facility] GIANT PLATELETS Present(A) [facility] Blood specimen (specimen) 04/19/2008 8:35 PM CDT 04/19/2008 8:35 PM CDT Narrative INTERFACE SYSTEM - 04/19/2008 10:07 PM CDT Differential ordered by policy. us Riky Mejía MD HEMATOLOGY ORDERABLES COM F inal Result INTERFACE SYSTEM Refer to clinic/hospital department [facility] CLIA# [id number] [address] [place] [address] * (ABNORMAL) PT AND APTT (04/19/2008 8:35 PM CDT) INR 1.3 [facility] Comment: Expected Values for INR: DVT/PE ?Goal INR 2.5; range 2.0 - 3.0 Valve Replacement ? Tissue ? Goal INR 2.5; range 2.0 - 3.0 ? Mechanical ?Goal INR 3.0; range 2.5 - 3.5 POST-IA ?Goal INR 2.5; range 2.0 - 3.0 ??or Goal 3.0; range 2.5 - 3.5 Atrial Fibrillation ?Goal INR 2.5; range 2.0 - 3.0 Ischemic Stroke ?Goal INR 2.5; range 2.0 - 3.0 For additional information see Guidelines for Anticoagulation available from the pharmacy [facility]. ??[phone] PROTIME 17.0(H) 12.8 - 15.8 Secs [facility] Comment:As of 2007 not e change in normal range. PTT 33.0 22.5 - 36.5 Secs [facility] Comment: Therapeutic Range: ?? [...] d INTERFACE SYSTEM Refer to clinic/hospital department [facility] CLIA# [id number] [address] [place] [address] * (ABNORMAL) CBC WITH DIFFERENTIAL (04/19/2008 8:35 PM CDT) RBC 3.37(L) 4.20 - 5.40 Mil/ul [facility] MCHC 31.6 30.0 - 35.0 g/dL [facility] LYMPHOCYTE ABSOLUTE 1.8 1.2 - 4.0 K/ul [facility] LYMPHOCYTES 12.2(L) 24.0 - 44.0 % [facility] MCV 92.9 84.0 - 103.0 Fl [facility] BASOPHILS 0.9 0.0 - 1.0 % [facility] MPV 10.4 8.9 - 12.8 Fl [facility] NRBC 1 <=1 [facility] BASOPHILS ABSOLUTE 0.1 0.0 - 0.2 K/ul [facility] HEMOGLOBIN 9.9(L) 12.0 - 16.0 g/dL [facility] MONOCYTES 10.2(H) 2.0 - 10.0 % [facility] RDW 17.4(H) 11.0 - 14.5 % [facility] MONOCYTE ABSOLUTE 1.5(H) 0.1 - 0.6 K/ul [facility] NEUTROPHILS 75.3(H) 42.2 - 75.2 % [facility] MCH 29.4 27.0 - 34.0 pg [facility] WBC 14.9(H) 4.5 - 11.0 K/ul [facility] Comment: WBC Corrected for Nucleated RBC'S NEUTROPHIL ABSOLUTE 11.3(H) 2.0 - 8.0 K/ul [facility] HEMATOCRIT 31.3(L) 36.0 - 46.0 % [facility] PLATELETS 459(H) 140 - 440 K/ul [facility] EOSINOPHIL ABSOLUTE 0.2 0.0 - 0.7 K/ul [facility] EOSINOPHILS 1.4 0.0 - 7.0 % [facility] Blood specimen (specimen) 04/19/2008 8:35 PM CDT 04/19/2008 8:35 PM CDT Riky Mejía MD HEMATOLOGY ORDERABLES Edite d Performing Organization Address [facility] Phone Number INTERFACE SYSTEM Refer to clinic/hospital department [facility] CLIA# [id number] [address] [place] [address] * (ABNORMAL) POC GLUCOSE (04/19/2008 8:31 PM CDT) [facility] Signature GLUCOSE POC 115(H) 60 - 100 mg/dL [facility] Venous blood specimen (specimen) 04/19/2008 8:31 PM CDT 04/20/2008 6:37 AM CDT Riky Mejía MD POINT OF CARE TESTING Final Result Performing Organization Address [facility] Phone Number INTERFACE SYSTEM Refer to clinic/hospital department [facility] CLIA# [id number] [address] [place] [address] * XR CHEST PA OR AP (04/19/2008 [...] GLUCOSE POC 125(H) 60 - 100 mg/dL [facility] Venous blood specimen (specimen) 04/19/2008 4:58 PM CDT 04/20/2008 7:00 AM CDT Riky Mejía MD POINT OF CARE TESTING Final Result INTERFACE SYSTEM Refer to clinic/hospital department [facility] CLIA# [id number] [facility] [place] [address] * POTASSIUM LEVEL (04/19/2008 4:30 PM CDT) POTASSIUM 4.0 3.5 - 5.0 mEq/L [facility] Blood specimen (specimen) 04/19/2008 4:30 PM CDT 04/19/2008 4:30 PM CDT Riky Mejía MD CHEMISTRY ORDERABLES Final Result Performing Organization Address [facility] de Phone Number INTERFACE SYSTEM Refer to clinic/hospital department [facility] CLIA# [id number] [address] [place] [address] * (ABNORMAL) POC GLUCOSE (04/19/2008 12:04 PM CDT) GLUCOSE POC 139(H) 60 - 100 mg/dL [facility] Venous blood specimen (specimen) 04/19/2008 12:04 PM CDT 04/20/2008 7:00 AM CDT Riky Mejía MD POINT OF CARE TESTING Final Result Performing Organization Address [facility] Phone Number INTERFACE SYSTEM Refer to clinic/hospital department [facility] CLIA# [id number] [address] [place] [address] * (ABNORMAL) POC GLUCOSE (04/19/2008 8:28 AM CDT) GLUCOSE POC 144(H) 60 - 100 mg/dL [facility] Venous blood specimen (specimen) 04/19/2008 8:28 AM CDT 04/20/2008 7:00 AM CDT us Riky Mejía MD POINT OF CARE TESTING Final Result Performing Organization Address [facility] de Phone Number INTERFACE SYSTEM Refer to clinic/hospital department [facility] CLIA# [id number] [address] [place] [address] * XR CHEST PA OR AP (04/19/2008 [...] 3:20 AM CDT) ANISOCYTOSIS 1+(A) None Seen [facility] LYMPHOCYTES 15(L) 24 - 44 % [facility] MYELOCYTES 1 <=1 % [facility] MONOCYTE 4 4 - 10 % [facility] NEUTROPHILS, SEG 73(H) 36 - 66 % [facility] POIKILOCYTES 1+(A) None Seen [facility] PLATELET EST. Normal Normal [facility] BANDS 6 0 - 6 % [facility] POLYCHROMASIA Present(A) None Seen [facility] EOSINOPHILS 1 0 - 3 % [facility] Blood specimen (specimen) 04/19/2008 3:20 AM CDT 04/19/2008 3:20 AM CDT Narrative INTERFACE SYSTEM - 04/19/2008 3:58 AM CDT Differential ordered by policy. us Riky Mejía MD HEMATOLOGY ORDERABLES COM F inal Result INTERFACE SYSTEM Refer to clinic/hospital department [facility] CLIA# [id number] [facility] [place] [address] * (ABNORMAL) COMPREHENSIVE METABOLIC PANEL (04/19/2008 3:20 AM CDT) GLUCOSE 138(H) 70 - 110 mg/dL [facility] CHLORIDE 94(L) 95 - 110 mEq/L [facility] ALBUMIN/GLOBULIN RATIO 0.9(L) 1.0 - 2.3 [facility] ALKALINE PHOSPHATASE 209(H) 25 - 100 U/L [facility] SODIUM 136 136 - 145 mEq/L [facility] BILIRUBIN TOTAL 1.6(H) 0.3 - 1.2 mg/dL [facility] TOTAL PROTEIN 5.6(L) 6.3 - 8.2 g/dL [facility] BUN 19(H) 7 - 17 mg/dL [facility] AST 73(H) 8 - 33 U/L [facility] CO2 37(H) 22 - 32 mmol/l [facility] ANION GAP 9 9 - 20 mEq/L [facility] ALBUMIN 2.6(L) 3.5 - 5.0 g/dL [facility] POTASSIUM 3.9 3.5 - 5.0 mEq/L [facility] GLOBULIN (CALC) 3.0 2.4 - 3.9 g/dL [facility] CREATININE 0.5(L) 0.7 - 1.2 mg/dL [facility] CALCIUM 8.6 8.4 - 10.5 mg/dL [facility] OSMOLALITY, CALCULATED 285 275 - 295 mOsm/Kg [facility] ALT 68(H) 4 - 36 IU/L [facility] Blood specimen (specimen) 04/19/2008 3:20 AM CDT 04/19/2008 3:20 AM CDT us Riky Mejía MD CHEMISTRY ORDERABLES Final Result Performing Organization Address City/State/[facility] Co de Phone Number INTERFACE SYSTEM Refer to clinic/hospital department [facility] CLIA# [id number] [address] [place] [address] * (ABNORMAL) CBC WITH DIFFERENTIAL (04/19/2008 3:20 AM CDT) WBC 13.9(H) 4.5 - 11.0 K/ul [facility] MCH 29.1 27.0 - 34.0 pg [facility] HEMATOCRIT 30.7(L) 36.0 - 46.0 % [facility] PLATELETS 390 140 - 440 K/ul [facility] RBC 3.33(L) 4.20 - 5.40 Mil/ul [facility] MCHC 31.6 30.0 - 35.0 g/dL [facility] MPV 10.2 8.9 - 12.8 Fl [facility] MCV 92.2 84.0 - 103.0 Fl [facility] HEMOGLOBIN 9.7(L) 12.0 - 16.0 g/dL [facility] RDW 16.9(H) 11.0 - 14.5 % [facility] Blood specimen (specimen) 04/19/2008 3:20 AM CDT 04/19/2008 3:20 AM CDT us Riky Mejía MD HEMATOLOGY ORDERABLES Edite d Performing Organization Address [facility] Phone Number INTERFACE SYSTEM Refer to clinic/hospital department [facility] CLIA# [id number] [address] [place] [address] * POTASSIUM LEVEL (04/18/2008 11:41 PM CDT) POTASSIUM 3.9 3.5 - 5.0 mEq/L [facility] Blood specimen (specimen) 04/18/2008 11:41 PM CDT 04/18/2008 11:41 PM CDT us Riky Mejía MD CHEMISTRY ORDERABLES Final Result Performing Organization Address [facility] Phone Number INTERFACE SYSTEM Refer to clinic/hospital department [facility] CLIA# [id number] [address] [place] [address] * POTASSIUM LEVEL (04/18/2008 3:49 PM CDT) POTASSIUM 4.0 3.5 - 5.0 mEq/L [facility] Blood specimen (specimen) 04/18/2008 3:49 PM CDT 04/18/2008 3:49 PM CDT us Riky Mejía MD CHEMISTRY ORDERABLES Final Result Performing Organization Address [facility] Phone Number INTERFACE SYSTEM Refer to clinic/hospital [facility] CLIA# [id number] [address] [place] [address] * (ABNORMAL) POC GLUCOSE (04/18/2008 7:29 AM CDT) GLUCOSE POC 153(H) 60 - 100 mg/dL [facility] Venous blood specimen (specimen) 04/18/2008 7:29 AM CDT 04/19/2008 6:47 AM CDT Riky Mejía MD POINT OF CARE TESTING Final Result INTERFACE SYSTEM Refer to clinic/hospital department [facility] CLIA# [id number] [facility] [place] [address] * (ABNORMAL) CBC WITH DIFFERENTIAL (04/18/2008 3:29 AM CDT) RDW 17.0(H) 11.0 - 14.5 % [facility] BASOPHILS ABSOLUTE 0.2 0.0 - 0.2 K/ul [facility] BASOPHILS 1.0 0.0 - 1.0 % [facility] WBC 14.5(H) 4.5 - 11.0 K/ul [facility] MCH 29.0 27.0 - 34.0 pg [facility] MONOCYTE ABSOLUTE 1.1(H) 0.1 - 0.6 K/ul [facility] MONOCYTES 7.3 2.0 - 10.0 % [facility] HEMATOCRIT 30.5(L) 36.0 - 46.0 % [facility] NEUTROPHIL ABSOLUTE 12.1(H) 2.0 - 8.0 K/ul [facility] NEUTROPHILS 83.1(H) 42.2 - 75.2 % [facility] PLATELETS 332 140 - 440 K/ul [facility] RBC 3.31(L) 4.20 - 5.40 Mil/ul [facility] MCHC 31.5 30.0 - 35.0 g/dL [facility] EOSINOPHILS 1.3 0.0 - 7.0 % [facility] PERIPHERAL BLOOD SMEAR REVIEW Automated Diff [facility] EOSINOPHIL ABSOLUTE 0.2 0.0 - 0.7 K/ul [facility] MCV 92.1 84.0 - 103.0 Fl [facility] LYMPHOCYTES 7.3(L) 24.0 - 44.0 % [facility] MPV 10.3 8.9 - 12.8 Fl [facility] LYMPHOCYTE ABSOLUTE 1.1(L) 1.2 - 4.0 K/ul [facility] HEMOGLOBIN 9.6(L) 12.0 - 16.0 g/dL [facility] Blood specimen (specimen) 04/18/2008 3:29 AM CDT 04/18/2008 3:35 AM CDT us Riky Mejía MD HEMATOLOGY ORDERABLES Edite d INTERFACE SYSTEM Refer to clinic/hospital department [facility] CLIA# [id number] [facility] [place] [address] * (ABNORMAL) COMPREHENSIVE METABOLIC PANEL (04/18/2008 3:29 AM CDT) AST 133(H) 8 - 33 U/L [facility] ALBUMIN/GLOBULIN RATIO 0.9(L) 1.0 - 2.3 [facility] POTASSIUM 4.1 3.5 - 5.0 mEq/L [facility] ANION GAP 6(L) 9 - 20 mEq/L [facility] ALBUMIN 2.4(L) 3.5 - 5.0 g/dL [facility] CREATININE 0.4(L) 0.7 - 1.2 mg/dL [facility] ALT 75(H) 4 - 36 IU/L [facility] CALCIUM 8.6 8.4 - 10.5 mg/dL [facility] GLUCOSE 134(H) 70 - 110 mg/dL [facility] ALKALINE PHOSPHATASE 167(H) 25 - 100 U/L [facility] CHLORIDE 96 95 - 110 mEq/L [facility] OSMOLALITY, CALCULATED 287 275 - 295 mOsm/Kg [facility] GLOBULIN (CALC) 2.8 2.4 - 3.9 g/dL [facility] TOTAL PROTEIN 5.2(L) 6.3 - 8.2 g/dL [facility] SODIUM 137 136 - 145 mEq/L [facility] BILIRUBIN TOTAL 2.1(H) 0.3 - 1.2 mg/dL [facility] CO2 39(H) 22 - 32 mmol/l [facility] BUN 20(H) 7 - 17 mg/dL [facility] Blood specimen (specimen) 04/18/2008 3:29 AM CDT 04/18/2008 3:35 AM CDT us Riky Mejía MD CHEMISTRY ORDERABLES Final Result Performing Organization Address [facility] Phone Number INTERFACE SYSTEM Refer to clinic/hospital department [facility] CLIA# [id number] [address] [place] [address] * POTASSIUM LEVEL (04/17/2008 6:15 PM CDT) POTASSIUM 3.8 3.5 - 5.0 mEq/L [facility] Blood specimen (specimen) 04/17/2008 6:15 PM CDT 04/17/2008 6:19 PM CDT Narrative INTERFACE SYSTEM - 04/17/2008 6:44 PM CDT stat us Riky Mejía MD CHEMISTRY ORDERABLES Final Result Performing Organization Address [facility] Phone Number INTERFACE SYSTEM Refer to clinic/hospital department [facility] CLIA# [id number] [address] [place] [address] * (ABNORMAL) POC GLUCOSE (04/17/2008 6:10 PM CDT) GLUCOSE POC 103(H) 60 - 100 mg/dL [facility] Venous blood specimen (specimen) 04/17/2008 6:10 PM CDT 04/18/2008 7:19 AM CDT Riky Mejía MD POINT OF CARE TESTING Final Result Performing Organization Address [facility]/ZIP Co de Phone Number INTERFACE SYSTEM Refer to clinic/hospital department [facility] CLIA# [id number] [address] [place] [address] * (ABNORMAL) POC GLUCOSE (04/17/2008 8:18 AM CDT) GLUCOSE POC 149(H) 60 - 100 mg/dL [facility] Venous blood specimen (specimen) 04/17/2008 8:18 AM CDT 04/18/2008 7:18 AM CDT Riky Mejía MD POINT OF CARE TESTING Final Result INTERFACE SYSTEM Refer to clinic/hospital department [facility] CLIA# [id number] [address] [place] [address] * (ABNORMAL) POC ISTAT EG 7+ (04/17/2008 5:31 AM CDT) SODIUM 138 138 - 146 mEq/L [facility] PH 7.49(H) 7.35 - 7.45 Unit [facility] PO2 TEMP CORRECT 92 80 - 105 mmHg [facility] O2 SATURATION 98 95 - 98 % [facility] SPECIMEN TYPE Arterial [facility] Comment: Test Performed By [id number] Tidal volume: 450 PEEP: 08 Rate: 10 Pulse OX: 100 Hemoglobin calculated from Hematocrit result PCO2 TEMP CORRECT 50(H) 35 - 45 mmHg [facility] POTASSIUM 3.6 3.5 - 4.9 mEq/L [facility] HEMOGLOBIN POC 9.5 +/-3 g/dL 12.0 - 16.0 g/dL [facility] PH TEMP CORRECT 7.49(H) 7.35 - 7.45 Unit [facility] TCO2 (CALC) POC 40(H) 23 - 27 mmol/l [facility] HCO3 (CALC) POC 38.0(H) 22.0 - 26.0 mmol/l [facility] FIO2 30 [facility] HEMATOCRIT ABG 28(L) 38 - 51 % [facility] PO2 92 80 - 105 mmHg [facility] CALCIUM IONIZED 1.04(L) 1.12 - 1.32 mmol/l [facility] PCO2 POC 50(H) 35 - 45 mmHg [facility] BASE EXCESS 15(H) -2 - 3 mmol/l [facility] Arterial blood specimen (specimen) 04/17/2008 5:31 AM CDT 04/17/2008 6:05 AM CDT us Riky Mejía MD POINT OF CARE TESTING COM F inal Result INTERFACE SYSTEM Refer to clinic/hospital department [facility] CLIA# [id number] [address] [place] [address] * (ABNORMAL) POC ISTAT EG 7+ (04/17/2008 4:22 AM CDT) PCO2 POC 52(H) 35 - 45 mmHg [facility] BASE EXCESS 19(H) -2 - 3 mmol/l [facility] SODIUM 137(L) 138 - 146 mEq/L [facility] PH 7.51(H) 7.35 - 7.45 Unit [facility] PO2 TEMP CORRECT 448(H) 80 - 105 mmHg [facility] O2 SATURATION 100(H) 95 - 98 % [facility] SPECIMEN TYPE Arterial [facility] Comment: Test Performed By [id number] Tidal volume: 500 PEEP: 08 Rate: 12 Pulse OX: 100 Hemoglobin calculated from Hematocrit result PCO2 TEMP CORRECT 52(H) 35 - 45 mmHg [facility] POTASSIUM 3.7 3.5 - 4.9 mEq/L [facility] HEMOGLOBIN POC 10.2 +/-3 g/dL 12.0 - 16.0 g/dL [facility] PH TEMP CORRECT 7.51(H) 7.35 - 7.45 Unit [facility] TCO2 (CALC) POC 44(H) 23 - 27 mmol/l [facility] HCO3 (CALC) POC 41.9(H) 22.0 - 26.0 mmol/l [facility] FIO2 30 [facility] HEMATOCRIT ABG 30(L) 38 - 51 % [facility] PO2 448(H) 80 - 105 mmHg [facility] CALCIUM IONIZED 1.01(L) 1.12 - 1.32 mmol/l [facility] Arterial blood specimen (specimen) 04/17/2008 4:22 AM CDT 04/17/2008 5:21 AM CDT Riky Mejía MD POINT OF CARE TESTING COM F inal Result INTERFACE SYSTEM Refer to clinic/hospital department [facility] CLIA# [id number] [address] [place] [address] * (ABNORMAL) CBC WITH DIFFERENTIAL (04/17/2008 2:07 AM CDT) BASOPHILS ABSOLUTE 0.1 0.0 - 0.2 K/ul [facility] BASOPHILS 0.8 0.0 - 1.0 % [facility] HEMOGLOBIN 9.4(L) 12.0 - 16.0 g/dL [facility] RDW 16.7(H) 11.0 - 14.5 % [facility] MONOCYTE ABSOLUTE 1.1(H) 0.1 - 0.6 K/ul [facility] MONOCYTES 7.2 2.0 - 10.0 % [facility] WBC 14.8(H) 4.5 - 11.0 K/ul [facility] MCH 29.2 27.0 - 34.0 pg [facility] NEUTROPHIL ABSOLUTE 12.7(H) 2.0 - 8.0 K/ul [facility] NEUTROPHILS 86.0(H) 42.2 - 75.2 % [facility] HEMATOCRIT 28.9(L) 36.0 - 46.0 % [facility] EOSINOPHILS 1.2 0.0 - 7.0 % [facility] PLATELETS 287 140 - 440 K/ul [facility] PERIPHERAL BLOOD SMEAR REVIEW Automated Diff [facility] EOSINOPHIL ABSOLUTE 0.2 0.0 - 0.7 K/ul [facility] RBC 3.22(L) 4.20 - 5.40 Mil/ul [facility] LYMPHOCYTES 4.8(L) 24.0 - 44.0 % [facility] MCHC 32.5 30.0 - 35.0 g/dL [facility] LYMPHOCYTE ABSOLUTE 0.7(L) 1.2 - 4.0 K/ul [facility] MCV 89.8 84.0 - 103.0 Fl [facility] MPV 10.3 8.9 - 12.8 Fl [facility] Blood specimen (specimen) 04/17/2008 2:07 AM CDT 04/17/2008 2:12 AM CDT us Riky Mejía MD HEMATOLOGY ORDERABLES Final Result Performing Organization Address [facility] Phone Number INTERFACE SYSTEM Refer to clinic/hospital department [facility] CLIA# [id number] [address] [place] [id number] * PHOSPHORUS (04/17/2008 2:07 AM CDT) PHOSPHORUS 3.0 2.5 - 4.6 mg/dL [facility] Blood specimen (specimen) 04/17/2008 2:07 AM CDT 04/17/2008 2:12 AM CDT us Riky Mejía MD CHEMISTRY ORDERABLES Final Result Performing Organization Address [facility] Phone Number INTERFACE SYSTEM Refer to clinic/hospital department [facility] CLIA# [id number] [place] [address] * (ABNORMAL) COMPREHENSIVE METABOLIC PANEL (04/17/2008 2:07 AM CDT) GLOBULIN (CALC) 2.7 2.4 - 3.9 g/dL [facility] SODIUM 141 136 - 145 mEq/L [facility] BILIRUBIN TOTAL 2.6(H) 0.3 - 1.2 mg/dL [facility] TOTAL PROTEIN 4.9(L) 6.3 - 8.2 g/dL [facility] BUN 16 7 - 17 mg/dL [facility] AST 52(H) 8 - 33 U/L [facility] CO2 36(H) 22 - 32 mmol/l [facility] ALBUMIN/GLOBULIN RATIO 0.8(L) 1.0 - 2.3 [facility] ALBUMIN 2.2(L) 3.5 - 5.0 g/dL [facility] POTASSIUM 3.6 3.5 - 5.0 mEq/L [facility] ANION GAP 7(L) 9 - 20 mEq/L [facility] CALCIUM 7.9(L) 8.4 - 10.5 mg/dL [facility] CREATININE 0.5(L) 0.7 - 1.2 mg/dL [facility] ALT 37(H) 4 - 36 IU/L [facility] GLUCOSE 131(H) 70 - 110 mg/dL [facility] CHLORIDE 102 95 - 110 mEq/L [facility] OSMOLALITY, CALCULATED 292 275 - 295 mOsm/Kg [facility] ALKALINE PHOSPHATASE 122(H) 25 - 100 U/L [facility] Blood specimen (specimen) 04/17/2008 2:07 AM CDT 04/17/2008 2:12 AM CDT us Riky Mejía MD CHEMISTRY ORDERABLES Final Result INTERFACE SYSTEM Refer to clinic/hospital department [facility] CLIA# [id number] [address] [place] [address] * (ABNORMAL) TRIGLYCERIDE (04/17/2008 2:07 AM CDT) TRIGLYCERIDE 326(H) 0 - 150 mg/dL [facility] Comment: On 11/10/2007, [facility] changed the triglyceride reference range to 0-150 mg/dl. ??This is the recommendation of the National Cholesterol Education Program (NCEP-ATPIII). Blood specimen (specimen) 04/17/2008 2:07 AM CDT 04/17/2008 2:12 AM CDT Riky Mejía MD CHEMISTRY ORDERABLES Final Result Performing Organization Address [facility] [facility] Phone Number INTERFACE SYSTEM Refer to clinic/hospital department [facility] CLIA# [id number] [address] [place] [address] * (ABNORMAL) POC GLUCOSE (04/16/2008 6:56 PM CDT) [facility] GLUCOSE POC 151(H) 60 - 100 mg/dL [facility] Venous blood specimen (specimen) 04/16/2008 6:56 PM CDT 04/17/2008 12:06 PM CDT Riky Mejía MD POINT OF CARE TESTING Final Result Performing Organization Address [facility] de Phone Number INTERFACE SYSTEM Refer to clinic/hospital department [facility] CLIA# [id number] [address] [place] [address] * POTASSIUM LEVEL (04/16/2008 4:43 PM CDT) POTASSIUM 3.7 3.5 - 5.0 mEq/L [facility] Comment: Specimen slightly hemolyzed. ??Slight icteric. Blood specimen (specimen) 04/16/2008 4:43 PM CDT 04/16/2008 4:43 PM CDT us Riky Mejía MD CHEMISTRY ORDERABLES Final Result INTERFACE SYSTEM Refer to clinic/hospital department [facility] CLIA# [id number] [address] [place] [address] * (ABNORMAL) POC ISTAT EG 7+ (04/16/2008 12:11 PM CDT) POTASSIUM 3.5 3.5 - 4.9 mEq/L [facility] SPECIMEN TYPE Arterial [facility] Comment: Test Performed By [id number] Pulse OX: 97 Hemoglobin calculated from Hematocrit result PCO2 TEMP CORRECT 59(H) 35 - 45 mmHg [facility] HEMOGLOBIN POC 9.9 +/-3 g/dL 12.0 - 16.0 g/dL [facility] PH TEMP CORRECT 7.39 7.35 - 7.45 Unit [facility] HCO3 (CALC) POC 35.3(H) 22.0 - 26.0 mmol/l [facility] CALCIUM IONIZED 1.10(L) 1.12 - 1.32 mmol/l [facility] TCO2 (CALC) POC 37(H) 23 - 27 mmol/l [facility] FIO2 40 [facility] PO2 93 80 - 105 mmHg [facility] HEMATOCRIT ABG 29(L) 38 - 51 % [facility] PCO2 POC 59(H) 35 - 45 mmHg [facility] SODIUM 135(L) 138 - 146 mEq/L [facility] BASE EXCESS 10(H) -2 - 3 mmol/l [facility] PH 7.39 7.35 - 7.45 Unit [facility] O2 SATURATION 97 95 - 98 % [facility] PO2 TEMP CORRECT 93 80 - 105 mmHg [facility] Arterial blood specimen (specimen) 04/16/2008 12:11 PM CDT 04/16/2008 12:15 PM CDT Riky Mejía MD POINT OF CARE TESTING COM F inal Result Performing Organization Address City/[facility] Co de Phone Number INTERFACE SYSTEM Refer to clinic/hospital department [facility] CLIA# [id number] [address] [place] [address] * (ABNORMAL) POC GLUCOSE (04/16/2008 7:40 AM CDT) GLUCOSE POC 166(H) 60 - 100 mg/dL [facility] Venous blood specimen (specimen) 04/16/2008 7:40 AM CDT 04/17/2008 12:06 PM CDT Riky Mejía MD POINT OF CARE TESTING Final Result Performing Organization Address [facility] de Phone Number INTERFACE SYSTEM Refer to clinic/hospital department [facility] CLIA# [id number] [address] [place] [address] * (ABNORMAL) POC ISTAT EG 7+ (04/16/2008 5:16 AM CDT) CALCIUM IONIZED 1.12 1.12 - 1.32 mmol/l [facility] PCO2 POC 46(H) 35 - 45 mmHg [facility] BASE EXCESS 10(H) -2 - 3 mmol/l [facility] SODIUM 133(L) 138 - 146 mEq/L [facility] PH 7.47(H) 7.35 - 7.45 Unit [facility] PO2 TEMP CORRECT 83 80 - 105 mmHg [facility] O2 SATURATION 97 95 - 98 % [facility] SPECIMEN TYPE Arterial [facility] Comment: Test Performed By [id number] Tidal volume: 500 PEEP: 06 Rate: 12 Pulse OX: 97 Hemoglobin calculated from Hematocrit result PCO2 TEMP CORRECT 46(H) 35 - 45 mmHg [facility] POTASSIUM 3.0(L) 3.5 - 4.9 mEq/L [facility] HEMOGLOBIN POC 9.2 +/-3 g/dL 12.0 - 16.0 g/dL [facility] PH TEMP CORRECT 7.47(H) 7.35 - 7.45 Unit [facility] TCO2 (CALC) POC 35(H) 23 - 27 mmol/l [facility] HCO3 (CALC) POC 33.4(H) 22.0 - 26.0 mmol/l [facility] FIO2 30 [facility] HEMATOCRIT ABG 27(L) 38 - 51 % [facility] PO2 83 80 - 105 mmHg [facility] Arterial blood specimen (specimen) 04/16/2008 5:16 AM CDT 04/16/2008 5:51 AM CDT Riky Mejía MD POINT OF CARE TESTING COM F inal Result Performing Organization Address [facility] de Phone Number INTERFACE SYSTEM Refer to clinic/hospital department [facility] CLIA# [id number] [address] [place] [address] * (ABNORMAL) POC GLUCOSE (04/16/2008 5:12 AM CDT) GLUCOSE POC 151(H) 60 - 100 mg/dL [facility] Venous blood specimen (specimen) 04/16/2008 5:12 AM CDT 04/16/2008 6:51 AM CDT Riky Mejía MD POINT OF CARE TESTING Final Result Performing Organization Address [facility] Phone Number INTERFACE SYSTEM Refer to clinic/hospital department [facility] CLIA# [id number] [address] [place] [address] * XR CHEST PA OR AP (04/16/2008 [...] CDT) LYMPHOCYTES 5.4(L) 24.0 - 44.0 % [facility] MCHC 33.3 30.0 - 35.0 g/dL [facility] LYMPHOCYTE ABSOLUTE 1.1(L) 1.2 - 4.0 K/ul [facility] MCV 88.4 84.0 - 103.0 Fl [facility] MPV 10.1 8.9 - 12.8 Fl [facility] BASOPHILS ABSOLUTE 0.1 0.0 - 0.2 K/ul [facility] BASOPHILS 0.3 0.0 - 1.0 % [facility] HEMOGLOBIN 9.4(L) 12.0 - 16.0 g/dL [facility] RDW 16.2(H) 11.0 - 14.5 % [facility] MONOCYTE ABSOLUTE 0.7(H) 0.1 - 0.6 K/ul [facility] MONOCYTES 3.3 2.0 - 10.0 % [facility] WBC 19.6(H) 4.5 - 11.0 K/ul [facility] MCH 29.5 27.0 - 34.0 pg [facility] NEUTROPHIL ABSOLUTE 17.6(H) 2.0 - 8.0 K/ul [facility] NEUTROPHILS 89.9(H) 42.2 - 75.2 % [facility] HEMATOCRIT 28.2(L) 36.0 - 46.0 % [facility] EOSINOPHILS 1.1 0.0 - 7.0 % [facility] PLATELETS 292 140 - 440 K/ul [facility] PERIPHERAL BLOOD SMEAR REVIEW Automated Diff [facility] EOSINOPHIL ABSOLUTE 0.2 0.0 - 0.7 K/ul [facility] RBC 3.19(L) 4.20 - 5.40 Mil/ul [facility] Blood specimen (specimen) 04/16/2008 3:20 AM CDT 04/16/2008 3:26 AM CDT us Riky Mejía MD HEMATOLOGY ORDERABLES Final Result Performing Organization Address City/State/[facility] Co de Phone Number INTERFACE SYSTEM Refer to clinic/hospital department [facility] CLIA# [id number] [address] [place] [address] * (ABNORMAL) COMPREHENSIVE METABOLIC PANEL (04/16/2008 3:20 AM CDT) AST 58(H) 8 - 33 U/L [facility] CO2 32 22 - 32 mmol/l [facility] ALBUMIN/GLOBULIN RATIO 0.9(L) 1.0 - 2.3 [facility] ALBUMIN 2.2(L) 3.5 - 5.0 g/dL [facility] POTASSIUM 2.9(AA) 3.5 - 5.0 mEq/L [facility] Comment: Potentially critical/toxic K called by GS to JOCELYNE DILLARD, with verbal read back, at 04/16/08 04:21. ANION GAP 9 9 - 20 mEq/L [facility] CALCIUM 8.2(L) 8.4 - 10.5 mg/dL [facility] CREATININE 0.6(L) 0.7 - 1.2 mg/dL [facility] ALT 37(H) 4 - 36 IU/L [facility] GLUCOSE 148(H) 70 - 110 mg/dL [facility] CHLORIDE 98 95 - 110 mEq/L [facility] OSMOLALITY, CALCULATED 283 275 - 295 mOsm/Kg [facility] ALKALINE PHOSPHATASE 105(H) 25 - 100 U/L [facility] GLOBULIN (CALC) 2.5 2.4 - 3.9 g/dL [facility] SODIUM 136 136 - 145 mEq/L [facility] BILIRUBIN TOTAL 4.4(H) 0.3 - 1.2 mg/dL [facility] TOTAL PROTEIN 4.7(L) 6.3 - 8.2 g/dL [facility] BUN 17 7 - 17 mg/dL [facility] Blood specimen (specimen) 04/16/2008 3:20 AM CDT 04/16/2008 3:26 AM CDT us Riky Mejía MD CHEMISTRY ORDERABLES Final Result INTERFACE SYSTEM Refer to clinic/hospital department [facility] CLIA# [id number] [address] [place] [address] * (ABNORMAL) POC GLUCOSE (04/15/2008 6:36 PM CDT) GLUCOSE POC 110(H) 60 - 100 mg/dL [facility] Venous blood specimen (specimen) 04/15/2008 6:36 PM CDT 04/16/2008 6:51 AM CDT Riky Mejía MD POINT OF CARE TESTING Final Result Performing Organization Address [facility] Phone Number INTERFACE SYSTEM Refer to clinic/hospital department [facility] CLIA# [id number] [address] [place] [address] * (ABNORMAL) HEMOGLOBIN AND HEMATOCRIT (04/15/2008 4:00 PM CDT) HEMOGLOBIN 7.8(L) 12.0 - 16.0 g/dL [facility] HEMATOCRIT 24.1(L) 36.0 - 46.0 % [facility] Blood specimen (specimen) 04/15/2008 4:00 PM CDT 04/15/2008 4:00 PM CDT Riky Mejía MD HEMATOLOGY ORDERABLES Final Result Performing Organization Address [facility] Phone Number INTERFACE SYSTEM Refer to clinic/hospital department [facility] CLIA# [id number] [address] [place] [address] * (ABNORMAL) VANCOMYCIN LEVEL TROUGH (04/15/2008 9:53 AM CDT) Pathologist [facility] VANCOMYCIN, TROUGH 18.3(H) 5.0 - 15.0 mcg/mL [facility] Blood specimen (specimen) 04/15/2008 9:53 AM CDT 04/15/2008 9:53 AM CDT Riky Mejía MD CHEMISTRY ORDERABLES Final Result Performing Organization Address [facility] Phone Number INTERFACE SYSTEM Refer to clinic/hospital [facility] CLIA# [id number] [address] [place] [address] * (ABNORMAL) TRIGLYCERIDE (04/15/2008 9:53 AM CDT) TRIGLYCERIDE 435(H) 0 - 150 mg/dL [facility] Comment: On 11/10/2007, [facility] changed the triglyceride reference range to 0-150 mg/dl. ??This is the recommendation of the National Cholesterol Education Program (NCEP-ATPIII). Blood specimen (specimen) 04/15/2008 9:53 AM CDT 04/15/2008 9:53 AM CDT us Riky Mejía MD CHEMISTRY ORDERABLES Final Result INTERFACE SYSTEM Refer to clinic/hospital department [facility] CLIA# [id number] [address] [place] [address] * PROTIME-INR (04/15/2008 9:53 AM CDT) PROTIME 15.2 12.8 - 15.8 Secs [facility] Comment:As of 2007 not e change in normal range. INR 1.1 [facility] Comment: Expected Values for INR: DVT/PE ?Goal INR 2.5; range 2.0 - 3.0 Valve Replacement ? Tissue ? Goal INR 2.5; range 2.0 - 3.0 ? Mechanical ?Goal INR 3.0; range 2.5 - 3.5 POST-IA ?Goal INR 2.5; range 2.0 - 3.0 ??or Goal 3.0; range 2.5 - 3.5 Atrial Fibrillation ?Goal INR 2.5; range 2.0 - 3.0 Ischemic Stroke ?Goal INR 2.5; range 2.0 - 3.0 For additional information see Guidelines for Anticoagulation available from the pharmacy Jolene Ashley, Pharm D. ??[phone] Blood specimen (specimen) 04/15/2008 9:53 AM CDT 04/15/2008 9:53 AM CDT us Riky Mejía MD HEMATOLOGY ORDERABLES Final Result Performing Organization Address [facility] Phone Number INTERFACE SYSTEM Refer to clinic/hospital department [facility] CLIA# [id number] [address] [place] [address] * (ABNORMAL) TRANSFERRIN (04/15/2008 9:53 AM CDT) TRANSFERRIN 59.0(L) 204.0 - 376.0 mg/dL [facility] Comment: Specimen slightly hemolyzed Blood specimen (specimen) 04/15/2008 9:53 AM CDT 04/15/2008 9:53 AM CDT us Riky Mejía MD CHEMISTRY ORDERABLES Final Result Performing Organization Address [facility] Phone Number INTERFACE SYSTEM Refer to clinic/hospital department [facility] CLIA# [id number] [address] [place] [address] * (ABNORMAL) PREALBUMIN (04/15/2008 9:53 AM CDT) PREALBUMIN <5.0(L) 14.0 - 32.0 mg/dL [facility] Comment: Test Repeated; Results confirmed Blood specimen (specimen) 04/15/2008 9:53 AM CDT 04/15/2008 9:53 AM CDT Riky Mejía MD CHEMISTRY ORDERABLES Final Result Performing Organization Address [facility] Phone Number INTERFACE SYSTEM Refer to clinic/hospital [facility] CLIA# [id number] [address] [place] [address] * PHOSPHORUS (04/15/2008 9:53 AM CDT) PHOSPHORUS 3.9 2.5 - 4.6 mg/dL [facility] Blood specimen (specimen) 04/15/2008 9:53 AM CDT 04/15/2008 9:53 AM CDT Riky Mejía MD CHEMISTRY ORDERABLES Edited Performing Organization Address [facility] Phone Number INTERFACE SYSTEM Refer to clinic/hospital department [facility] CLIA# [id number] [facility] [place] [address] * (ABNORMAL) MAGNESIUM LEVEL (04/15/2008 9:53 AM CDT) MAGNESIUM 1.3(L) 1.7 - 2.4 mg/dL [facility] Blood specimen (specimen) 04/15/2008 9:53 AM CDT 04/15/2008 9:53 AM CDT us Riky Mejía MD CHEMISTRY ORDERABLES Edited Performing Organization Address [facility] Phone Number INTERFACE SYSTEM Refer to clinic/hospital department [facility] CLIA# [id number] [address] [place] [address] * (ABNORMAL) POC ISTAT EG 7+ (04/15/2008 4:13 AM CDT) PH 7.49(H) 7.35 - 7.45 Unit [facility] PO2 TEMP CORRECT 68(L) 80 - 105 mmHg [facility] O2 SATURATION 94(L) 95 - 98 % [facility] SPECIMEN TYPE Arterial [facility] Comment: Test Performed By [id number] Tidal volume: 500 PEEP: 06 Rate: 12 Pulse OX: 98 Hemoglobin calculated from Hematocrit result PCO2 TEMP CORRECT 48(H) 35 - 45 mmHg [facility] POTASSIUM 3.4(L) 3.5 - 4.9 mEq/L [facility] HEMOGLOBIN POC 9.2 +/-3 g/dL 12.0 - 16.0 g/dL [facility] PH TEMP CORRECT 7.49(H) 7.35 - 7.45 Unit [facility] TCO2 (CALC) POC 38(H) 23 - 27 mmol/l [facility] HCO3 (CALC) POC 36.7(H) 22.0 - 26.0 mmol/l [facility] FIO2 30 [facility] HEMATOCRIT ABG 27(L) 38 - 51 % [facility] PO2 68(L) 80 - 105 mmHg [facility] CALCIUM IONIZED 1.06(L) 1.12 - 1.32 mmol/l [facility] PCO2 POC 48(H) 35 - 45 mmHg [facility] BASE EXCESS 13(H) -2 - 3 mmol/l [facility] SODIUM 133(L) 138 - 146 mEq/L [facility] Arterial blood specimen (specimen) 04/15/2008 4:13 AM CDT 04/15/2008 4:27 AM CDT us Riky Mejía MD POINT OF CARE TESTING COM F inal Result INTERFACE SYSTEM Refer to clinic/hospital department [facility] CLIA# [id number] [address] [place] [address] * XR CHEST PA OR AP (04/15/2008 [...] Chaparro M.D. Date Signed: 04/15/08 [facility] Procedure Note April Chaparro MD - 04/15/2008 [...] Chaparro M.D. Date Signed: 04/15/08 [facility] us Heriberto Carrera MD DIAGNOSTIC IMAGING ORDERABLES Fi nal Result * (ABNORMAL) COMPREHENSIVE METABOLIC PANEL (04/15/2008 3:17 AM CDT) CALCIUM 7.9(L) 8.4 - 10.5 mg/dL [facility] CREATININE 0.6(L) 0.7 - 1.2 mg/dL [facility] ALT 40(H) 4 - 36 IU/L [facility] GLUCOSE 106 70 - 110 mg/dL [facility] CHLORIDE 95 95 - 110 mEq/L [facility] OSMOLALITY, CALCULATED 285 275 - 295 mOsm/Kg [facility] ALKALINE PHOSPHATASE 102(H) 25 - 100 U/L [facility] GLOBULIN (CALC) 2.5 2.4 - 3.9 g/dL [facility] SODIUM 137 136 - 145 mEq/L [facility] BILIRUBIN TOTAL 4.3(H) 0.3 - 1.2 mg/dL [facility] Comment: slightly icteric TOTAL PROTEIN 4.5(L) 6.3 - 8.2 g/dL [facility] BUN 20(H) 7 - 17 mg/dL [facility] AST 73(H) 8 - 33 U/L [facility] CO2 36(H) 22 - 32 mmol/l [facility] ALBUMIN/GLOBULIN RATIO 0.8(L) 1.0 - 2.3 [facility] ALBUMIN 2.0(L) 3.5 - 5.0 g/dL [facility] POTASSIUM 3.7 3.5 - 5.0 mEq/L [facility] ANION GAP 10 9 - 20 mEq/L [facility] Blood specimen (specimen) 04/15/2008 3:17 AM CDT 04/15/2008 3:36 AM CDT us Petr Carrillo MD CHEMISTRY ORDERABLES Final Re sult INTERFACE SYSTEM Refer to clinic/hospital department [facility] CLIA# [id number] [address] [place] [address] * (ABNORMAL) CBC WITH DIFFERENTIAL (04/15/2008 3:17 AM CDT) NEUTROPHIL ABSOLUTE 15.2(H) 2.0 - 8.0 K/ul [facility] HEMATOCRIT 26.7(L) 36.0 - 46.0 % [facility] PLATELETS 428 140 - 440 K/ul [facility] EOSINOPHIL ABSOLUTE 0.2 0.0 - 0.7 K/ul [facility] EOSINOPHILS 0.8 0.0 - 7.0 % [facility] PERIPHERAL BLOOD SMEAR REVIEW Automated Diff [facility] RBC 3.02(L) 4.20 - 5.40 Mil/ul [facility] MCHC 32.2 30.0 - 35.0 g/dL [facility] LYMPHOCYTE ABSOLUTE 1.3 1.2 - 4.0 K/ul [facility] LYMPHOCYTES 7.4(L) 24.0 - 44.0 % [facility] MCV 88.4 84.0 - 103.0 Fl [facility] BASOPHILS 0.5 0.0 - 1.0 % [facility] MPV 10.1 8.9 - 12.8 Fl [facility] BASOPHILS ABSOLUTE 0.1 0.0 - 0.2 K/ul [facility] HEMOGLOBIN 8.6(L) 12.0 - 16.0 g/dL [facility] MONOCYTES 5.6 2.0 - 10.0 % [facility] RDW 16.7(H) 11.0 - 14.5 % [facility] MONOCYTE ABSOLUTE 1.0(H) 0.1 - 0.6 K/ul [facility] WBC 17.7(H) 4.5 - 11.0 K/ul [facility] NEUTROPHILS 85.7(H) 42.2 - 75.2 % [facility] MCH 28.5 27.0 - 34.0 pg [facility] Blood specimen (specimen) 04/15/2008 3:17 AM CDT 04/15/2008 3:40 AM CDT us Petr Carrillo MD HEMATOLOGY ORDERABLES Final R esult Performing Organization Address City/State/[facility] Co de Phone Number INTERFACE SYSTEM Refer to clinic/hospital department [facility] CLIA# [id number] [address] [place] [address] * XR CHEST PA OR AP (04/14/2008 [...] Jr., M.D. Date Signed: 04/14/08 [facility] Procedure Note Ari Ly Jr. - 04/14/2008 [...] Jr., M.D. Date Signed: 04/14/08 [facility] Riky Mejía MD DIAGNOSTIC IMAGING ORDERABL ES Final Result * (ABNORMAL) POC ISTAT EG 7+ (04/14/2008 3:23 AM CDT) SODIUM 134(L) 138 - 146 mEq/L [facility] PH 7.60(AA) 7.35 - 7.45 Unit [facility] PO2 TEMP CORRECT 92 80 - 105 mmHg [facility] O2 SATURATION 98 95 - 98 % [facility] SPECIMEN TYPE Arterial [facility] Comment: Test Performed By [id number] Critical result performed at the point of care. Pulse OX: 98 Hemoglobin calculated from Hematocrit result PCO2 TEMP CORRECT 41 35 - 45 mmHg [facility] POTASSIUM 3.9 3.5 - 4.9 mEq/L [facility] HEMOGLOBIN POC 10.9 +/-3 g/dL 12.0 - 16.0 g/dL [facility] PH TEMP CORRECT 7.60(AA) 7.35 - 7.45 Unit [facility] TCO2 (CALC) POC 41(H) 23 - 27 mmol/l [facility] HCO3 (CALC) POC 39.9(H) 22.0 - 26.0 mmol/l [facility] FIO2 45 [facility] HEMATOCRIT ABG 32(L) 38 - 51 % [facility] PO2 92 80 - 105 mmHg [facility] CALCIUM IONIZED 1.03(L) 1.12 - 1.32 mmol/l [facility] PCO2 POC 41 35 - 45 mmHg [facility] BASE EXCESS 18(H) -2 - 3 mmol/l [facility] Arterial blood specimen (specimen) 04/14/2008 3:23 AM CDT 04/14/2008 5:44 AM CDT us Riky Mejía MD POINT OF CARE TESTING COM F inal Result INTERFACE SYSTEM Refer to clinic/hospital department [facility] CLIA# [id number] [address] [place] [address] * (ABNORMAL) DIFFERENTIAL, MANUAL (04/14/2008 1:37 AM CDT) NEUTROPHILS, SEG 57 36 - 66 % [facility] METAMYELOCYTE 1 0 - 1 % [facility] POIKILOCYTES 1+(A) None Seen [facility] MONOCYTE 5 4 - 10 % [facility] RBC MORPHOLOGY Abnormal(A ) Normal [facility] BANDS 27(H) 0 - 6 % [facility] POLYCHROMASIA Present(A) None Seen [facility] MYELOCYTES 1 <=1 % [facility] EOSINOPHILS 1 0 - 3 % [facility] ANISOCYTOSIS 1+(A) None Seen [facility] LYMPHOCYTES 8(L) 24 - 44 % [facility] PLATELET EST. Normal Normal [facility] Comment: OCC PLATELET CLUMPS NOTED ON REVIEW OF SMEAR. Blood specimen (specimen) 04/14/2008 1:37 AM CDT 04/14/2008 1:40 AM CDT Narrative INTERFACE SYSTEM - 04/14/2008 2:01 AM CDT Differential ordered by policy. Riky Mejía MD HEMATOLOGY ORDERABLES COM F inal Result INTERFACE SYSTEM Refer to clinic/hospital department [facility] CLIA# [id number] [address] [place] [address] * (ABNORMAL) BASIC METABOLIC PANEL (04/14/2008 1:37 AM CDT) CALCIUM 8.1(L) 8.4 - 10.5 mg/dL [facility] GLUCOSE 108 70 - 110 mg/dL [facility] CHLORIDE 95 95 - 110 mEq/L [facility] ANION GAP 8(L) 9 - 20 mEq/L [facility] SODIUM 137 136 - 145 mEq/L [facility] BUN 26(H) 7 - 17 mg/dL [facility] CO2 38(H) 22 - 32 mmol/l [facility] POTASSIUM 4.1 3.5 - 5.0 mEq/L [facility] OSMOLALITY, CALCULATED 288 275 - 295 mOsm/Kg [facility] CREATININE 0.8 0.7 - 1.2 mg/dL [facility] Blood specimen (specimen) 04/14/2008 1:37 AM CDT 04/14/2008 1:40 AM CDT Riky Mejía MD CHEMISTRY ORDERABLES Final Result Performing Organization Address [facility] Phone Number INTERFACE SYSTEM Refer to clinic/hospital department [facility] CLIA# [id number] [address] [place] [address] * (ABNORMAL) CBC WITH DIFFERENTIAL (04/14/2008 1:37 AM CDT) HEMATOCRIT 33.4(L) 36.0 - 46.0 % [facility] PLATELETS 429 140 - 440 K/ul [facility] RBC 3.77(L) 4.20 - 5.40 Mil/ul [facility] MCHC 33.2 30.0 - 35.0 g/dL [facility] MPV 10.1 8.9 - 12.8 Fl [facility] MCV 88.6 84.0 - 103.0 Fl [facility] HEMOGLOBIN 11.1(L) 12.0 - 16.0 g/dL [facility] LAB RDW 16.4(H) 11.0 - 14.5 % [facility] WBC 16.6(H) 4.5 - 11.0 K/ul [facility] MCH 29.4 27.0 - 34.0 pg [facility] Blood specimen (specimen) 04/14/2008 1:37 AM CDT 04/14/2008 1:40 AM CDT us Riky Mejía MD HEMATOLOGY ORDERABLES Edite d Performing Organization Address [facility] de Phone Number INTERFACE SYSTEM Refer to clinic/hospital department [facility] CLIA# [id number] [address] [place] [address] * LACTIC ACID (04/13/2008 9:12 PM CDT) LACTIC ACID 1.4 0.5 - 2.2 mEq/L [facility] Blood specimen (specimen) 04/13/2008 9:12 PM CDT 04/13/2008 9:18 PM CDT Riky Mejía MD CHEMISTRY ORDERABLES Final Result INTERFACE SYSTEM Refer to clinic/hospital department [facility] CLIA# [id number] [address] [place] [address] * (ABNORMAL) POC ISTAT EG 7+ (04/13/2008 8:41 PM CDT) POTASSIUM 3.8 3.5 - 4.9 mEq/L [facility] PH TEMP CORRECT 7.51(H) 7.35 - 7.45 Unit [facility] HCO3 (CALC) POC 43.9(H) 22.0 - 26.0 mmol/l [facility] TCO2 (CALC) POC 46(H) 23 - 27 mmol/l [facility] FIO2 55 [facility] PO2 129(H) 80 - 105 mmHg [facility] CALCIUM IONIZED 1.05(L) 1.12 - 1.32 mmol/l [facility] HEMATOCRIT ABG 36(L) 38 - 51 % [facility] PCO2 POC 56(H) 35 - 45 mmHg [facility] SODIUM 135(L) 138 - 146 mEq/L [facility] BASE EXCESS 21(H) -2 - 3 mmol/l [facility] PH 7.51(H) 7.35 - 7.45 Unit [facility] O2 SATURATION 99(H) 95 - 98 % [facility] PO2 TEMP CORRECT 129(H) 80 - 105 mmHg [facility] SPECIMEN TYPE Arterial [facility] Comment: Test Performed By [id number] PEEP: 10 Rate: 12 Pulse OX: 100 Hemoglobin calculated from Hematocrit result PCO2 TEMP CORRECT 56(H) 35 - 45 mmHg [facility] HEMOGLOBIN POC 12.2 +/-3 g/dL 12.0 - 16.0 g/dL [facility] Arterial blood specimen (specimen) 04/13/2008 8:41 PM CDT 04/13/2008 8:44 PM CDT Riky Mejía MD POINT OF CARE TESTING COM F inal Result Performing Organization Address [facility] de Phone Number INTERFACE SYSTEM Refer to clinic/hospital department [facility] CLIA# [id number] [address] [place] [address] * (ABNORMAL) POC GLUCOSE (04/13/2008 8:33 PM CDT) GLUCOSE POC 115(H) 60 - 100 mg/dL [facility] Venous blood specimen (specimen) 04/13/2008 8:33 PM CDT 04/14/2008 5:56 AM CDT Riky Mejía MD POINT OF CARE TESTING Final Result Performing Organization Address [facility] Phone Number INTERFACE SYSTEM Refer to clinic/hospital department [facility] CLIA# [id number] [address] [place] [address] * (ABNORMAL) BASIC METABOLIC PANEL (04/13/2008 7:58 PM CDT) GLUCOSE 118(H) 70 - 110 mg/dL [facility] CHLORIDE 94(L) 95 - 110 mEq/L [facility] ANION GAP <9 9 - 20 mEq/L [facility] SODIUM 139 136 - 145 mEq/L [facility] BUN 17 7 - 17 mg/dL [facility] CO2 >40(H) 22 - 32 mmol/l [facility] POTASSIUM 3.9 3.5 - 5.0 mEq/L [facility] OSMOLALITY, CALCULATED 288 275 - 295 mOsm/Kg [facility] CREATININE 0.5(L) 0.7 - 1.2 mg/dL [facility] CALCIUM 8.4 8.4 - 10.5 mg/dL [facility] Blood specimen (specimen) 04/13/2008 7:58 PM CDT 04/13/2008 8:01 PM CDT Riky Mejía MD CHEMISTRY ORDERABLES Final Result INTERFACE SYSTEM Refer to clinic/hospital department [facility] CLIA# [id number] [address] [place] [address] * (ABNORMAL) CBC WITH DIFFERENTIAL (04/13/2008 7:58 PM CDT) MCV 91.0 84.0 - 103.0 Fl [facility] MPV 10.3 8.9 - 12.8 Fl [facility] BASOPHILS ABSOLUTE 0.1 0.0 - 0.2 K/ul [facility] BASOPHILS 0.4 0.0 - 1.0 % [facility] HEMOGLOBIN 11.6(L) 12.0 - 16.0 g/dL [facility] RDW 16.6(H) 11.0 - 14.5 % [facility] MONOCYTE ABSOLUTE 0.7(H) 0.1 - 0.6 K/ul [facility] MONOCYTES 4.2 2.0 - 10.0 % [facility] WBC 16.1(H) 4.5 - 11.0 K/ul [facility] MCH 29.7 27.0 - 34.0 pg [facility] NEUTROPHIL ABSOLUTE 14.1(H) 2.0 - 8.0 K/ul [facility] NEUTROPHILS 87.4(H) 42.2 - 75.2 % [facility] HEMATOCRIT 35.6(L) 36.0 - 46.0 % [facility] EOSINOPHILS 0.9 0.0 - 7.0 % [facility] PLATELETS 430 140 - 440 K/ul [facility] EOSINOPHIL ABSOLUTE 0.1 0.0 - 0.7 K/ul [facility] RBC 3.91(L) 4.20 - 5.40 Mil/ul [facility] LYMPHOCYTES 7.1(L) 24.0 - 44.0 % [facility] MCHC 32.6 30.0 - 35.0 g/dL [facility] LYMPHOCYTE ABSOLUTE 1.1(L) 1.2 - 4.0 K/ul [facility] Blood specimen (specimen) 04/13/2008 7:58 PM CDT 04/13/2008 8:01 PM CDT us Riky Mejía MD HEMATOLOGY ORDERABLES Final Result Performing Organization Address City/State/[facility] Co de Phone Number INTERFACE SYSTEM Refer to clinic/hospital department [facility] CLIA# [id number] [address] [place] [address] * XR CHEST PA OR AP (04/13/2008 [...] radiopaque tubes and lines that overlie the [id number]. There is vascular congestion, and there is [...] radiopaque tubes and lines that overlie the [id number]. There is vascular congestion,and there is likely a right lower lobe infiltrate that obscures the right diaphragm. - Dictated By: Riky Jarvis M.D. Electronically Signed By: Riky Jarvis M.D. Date Signed: 04/13/08 us Riky Mejía MD DIAGNOSTIC IMAGING ORDERABL ES Final Result * (ABNORMAL) POC ISTAT EG 7+ (04/13/2008 6:02 PM CDT) TEMPERATURE 37.9 DegC [facility] PO2 138(H) 80 - 105 mmHg [facility] CALCIUM IONIZED 1.06(L) 1.12 - 1.32 mmol/l [facility] HEMATOCRIT ABG 29(L) 38 - 51 % [facility] SPECIMEN TYPE Arterial [facility] Comment: Test Performed By [id number] Critical result performed at the point of care. Sample not collected by [facility] Hemoglobin calculated from Hematocrit result PCO2 POC 39 35 - 45 mmHg [facility] SODIUM 134(L) 138 - 146 mEq/L [facility] BASE EXCESS 27(H) -2 - 3 mmol/l [facility] PH 7.69(AA) 7.35 - 7.45 Unit [facility] O2 SATURATION 100(H) 95 - 98 % [facility] PO2 TEMP CORRECT 144(H) 80 - 105 mmHg [facility] FIO2 100 [facility] HEMOGLOBIN POC 9.9 +/-3 g/dL 12.0 - 16.0 g/dL [facility] PCO2 TEMP CORRECT 41 35 - 45 mmHg [facility] POTASSIUM 3.3(L) 3.5 - 4.9 mEq/L [facility] PH TEMP CORRECT 7.67(AA) 7.35 - 7.45 Unit [facility] HCO3 (CALC) POC 47.0(H) 22.0 - 26.0 mmol/l [facility] TCO2 (CALC) POC 48(H) 23 - 27 mmol/l [facility] Arterial blood specimen (specimen) 04/13/2008 6:02 PM CDT 04/13/2008 6:19 PM CDT Riky Mejía MD POINT OF CARE TESTING COM F inal Result Performing Organization Address [facility] Phone Number INTERFACE SYSTEM Refer to clinic/hospital department [facility] CLIA# [id number] [address] [place] [address] * LACTIC ACID (04/13/2008 5:36 PM CDT) [facility] LACTIC ACID 1.5 0.5 - 2.2 mEq/L [facility] Blood specimen (specimen) 04/13/2008 5:36 PM CDT 04/13/2008 5:36 PM CDT Riky Mejía MD CHEMISTRY ORDERABLES Final Result Performing Organization Address [facility] Phone Number INTERFACE SYSTEM Refer to clinic/hospital department [facility] CLIA# [id number] [facility] [place] [address] * TYPE AND CROSSMATCH (04/13/2008 5:34 PM CDT) [facility] BLOOD BANK PRODUCT INTERFACE SYSTEM Blood specimen (specimen) 04/13/2008 5:34 PM CDT 04/13/2008 5:34 PM CDT Riky Mejía MD BLOOD BANK ORDERABLES Final Result Performing Organization Address [facility] de Phone Number INTERFACE SYSTEM Refer to clinic/hospital department * ANTIBODY SCREEN (04/13/2008 5:34 PM CDT) ANTIBODY SCREEN Negative [facility] Blood specimen (specimen) 04/13/2008 5:34 PM CDT 04/13/2008 5:34 PM CDT Riky Mejía MD BLOOD BANK ORDERABLES Edite d Performing Organization Address [facility] de Phone Number INTERFACE SYSTEM Refer to clinic/hospital department [facility] CLIA# [id number] [address] [place] [address] * ABORH TYPING (04/13/2008 5:34 PM CDT) ABO/RH TYPE O Positive [facility] Blood specimen (specimen) 04/13/2008 5:34 PM CDT 04/13/2008 5:34 PM CDT Riky Mejía MD BLOOD BANK ORDERABLES Final Result Performing Organization Address [facility] Phone Number INTERFACE SYSTEM Refer to clinic/hospital department [facility] CLIA# [id number] [address] [place] [address] * (ABNORMAL) BASIC METABOLIC PANEL (04/13/2008 5:29 PM CDT) CREATININE 0.6(L) 0.7 - 1.2 mg/dL [facility] CALCIUM 8.4 8.4 - 10.5 mg/dL [facility] GLUCOSE 118(H) 70 - 110 mg/dL [facility] CHLORIDE 91(L) 95 - 110 mEq/L [facility] SODIUM 141 136 - 145 mEq/L [facility] ANION GAP <14 9 - 20 mEq/L [facility] BUN 16 7 - 17 mg/dL [facility] CO2 >40(H) 22 - 32 mmol/l [facility] OSMOLALITY, CALCULATED 291 275 - 295 mOsm/Kg [facility] POTASSIUM 3.7 3.5 - 5.0 mEq/L [facility] Blood specimen (specimen) 04/13/2008 5:29 PM CDT 04/13/2008 5:30 PM CDT Narrative INTERFACE SYSTEM - 04/13/2008 6:20 PM CDT OR 9 us Riky Mejía MD CHEMISTRY ORDERABLES Final Result INTERFACE SYSTEM Refer to clinic/hospital department [facility] CLIA# [id number] [address] [place] [address] * PT AND APTT (04/13/2008 5:29 PM CDT) INR 1.1 [facility] Comment: Expected Values for INR: DVT/PE ?Goal INR 2.5; range 2.0 - 3.0 Valve Replacement ? Tissue ? Goal INR 2.5; range 2.0 - 3.0 ? Mechanical ?Goal INR 3.0; range 2.5 - 3.5 POST-IA ?Goal INR 2.5; range 2.0 - 3.0 ??or Goal 3.0; range 2.5 - 3.5 Atrial Fibrillation ?Goal INR 2.5; range 2.0 - 3.0 Ischemic Stroke ?Goal INR 2.5; range 2.0 - 3.0 For additional information see Guidelines for Anticoagulation available from the pharmacy [facility]. ??[phone] PTT 33.1 22.5 - 36.5 Secs [facility] Comment: Therapeutic Range: ?? Hi-level PE/DVT heparin protocol 80.1 -95.0 ??sec ? Lo-level PE/DVT ??heparin protocol ??67.1 - ??80.0 sec ?? Cardiac Heparin Protocol 67.1 - 85.0 sec ?? Neuro Heparin Protocol 67.1 - 80.0 sec As of 09/25/2007 note change in APTT Normal Range. PROTIME 15.3 12.8 - 15.8 Secs [facility] Comment:As of 2007 not e change in normal range. Blood specimen (specimen) 04/13/2008 5:29 PM CDT 04/13/2008 5:30 PM CDT Narrative INTERFACE SYSTEM - 04/13/2008 5:48 PM CDT OR 9 us Riky Mejía MD HEMATOLOGY ORDERABLES Edite d INTERFACE SYSTEM Refer to clinic/hospital department [facility] CLIA# [id number] [facility] [place] [address] * (ABNORMAL) CBC WITH DIFFERENTIAL (04/13/2008 5:29 PM CDT) MCV 90.1 84.0 - 103.0 Fl [facility] BASOPHILS 0.3 0.0 - 1.0 % [facility] MPV 10.2 8.9 - 12.8 Fl [facility] BASOPHILS ABSOLUTE 0.0 0.0 - 0.2 K/ul [facility] HEMOGLOBIN 9.4(L) 12.0 - 16.0 g/dL [facility] MONOCYTES 4.3 2.0 - 10.0 % [facility] RDW 17.1(H) 11.0 - 14.5 % [facility] MONOCYTE ABSOLUTE 0.5 0.1 - 0.6 K/ul [facility] WBC 11.8(H) 4.5 - 11.0 K/ul [facility] NEUTROPHILS 81.9(H) 42.2 - 75.2 % [facility] MCH 29.0 27.0 - 34.0 pg [facility] NEUTROPHIL ABSOLUTE 9.7(H) 2.0 - 8.0 K/ul [facility] HEMATOCRIT 29.2(L) 36.0 - 46.0 % [facility] PLATELETS 414 140 - 440 K/ul [facility] EOSINOPHIL ABSOLUTE 0.2 0.0 - 0.7 K/ul [facility] EOSINOPHILS 1.4 0.0 - 7.0 % [facility] RBC 3.24(L) 4.20 - 5.40 Mil/ul [facility] MCHC 32.2 30.0 - 35.0 g/dL [facility] LYMPHOCYTE ABSOLUTE 1.4 1.2 - 4.0 K/ul [facility] LYMPHOCYTES 12.1(L) 24.0 - 44.0 % [facility] Blood specimen (specimen) 04/13/2008 5:29 PM CDT 04/13/2008 5:29 PM CDT Narrative INTERFACE SYSTEM - 04/13/2008 5:35 PM CDT OR 9 us Riky Mejía MD HEMATOLOGY ORDERABLES Final Result INTERFACE SYSTEM Refer to clinic/hospital department [facility] CLIA# [id number] [address] [place] [address] * (ABNORMAL) POC ISTAT EG 7+ (04/13/2008 5:26 PM CDT) PH 7.68(AA) 7.35 - 7.45 Unit [facility] O2 SATURATION 100(H) 95 - 98 % [facility] PO2 TEMP CORRECT 174(H) 80 - 105 mmHg [facility] FIO2 100 [facility] HEMOGLOBIN POC 9.5 +/-3 g/dL 12.0 - 16.0 g/dL [facility] PCO2 TEMP CORRECT 47(H) 35 - 45 mmHg [facility] POTASSIUM 3.5 3.5 - 4.9 mEq/L [facility] PH TEMP CORRECT 7.67(AA) 7.35 - 7.45 Unit [facility] HCO3 (CALC) POC 53.2(H) 22.0 - 26.0 mmol/l [facility] TCO2 (CALC) POC >50(H) 23 - 27 mmol/l [facility] TEMPERATURE 37.8 DegC [facility] PO2 170(H) 80 - 105 mmHg [facility] CALCIUM IONIZED 0.95(L) 1.12 - 1.32 mmol/l [facility] HEMATOCRIT ABG 28(L) 38 - 51 % [facility] SPECIMEN TYPE Arterial [facility] Comment: Test Performed By [id number] Critical result performed at the point of care. Sample not collected by [facility] Hemoglobin calculated from Hematocrit result PCO2 POC 45 35 - 45 mmHg [facility] SODIUM 135(L) 138 - 146 mEq/L [facility] BASE EXCESS >30(H) -2 - 3 mmol/l [facility] Arterial blood specimen (specimen) 04/13/2008 5:26 PM CDT 04/13/2008 5:34 PM CDT Riky Mejía MD POINT OF CARE TESTING COM F inal Result Performing Organization Address [facility] de Phone Number INTERFACE SYSTEM Refer to clinic/hospital department [facility] CLIA# [id number] [address] [place] [address] * MRSA CULTURE (04/13/2008 4:30 PM CDT) FINAL REPORT Culture screen for MRSA negative INTERFACE SYSTEM 04/13/2008 4:30 PM CDT 04/13/2008 6:57 PM CDT Riky Mejía MD MICROBIOLOGY - GENERAL [place] ATKINSON Final Result Performing Organization Address [facility] Phone Number INTERFACE SYSTEM Refer to clinic/hospital department documented in this encounter Visit Diagnoses Not on filedocumented in this encounter Additional Health Concerns Infection Onset Date Last Indicated Resolved Time MRSA Comment:Kapil 10/26/15 10/27/2015 10/27/2015 documented as of this encounter Care Teams Block And Case Maker Relationship Specialty Start Date End Date Jose Bowers MD [address] [place] [id number] PCP - General 12/31/05 documented as of this encounter
--- OUTSIDE RECORDS SUMMARY | 2024-08-29 08:49 | XMS_ITS | Encounter Summary ---
Author Organization [facility] Address [address] [place] [address] Care Team Providers Care Wire Dropper Name Role Phone Jose Bowers MD Primary Care Provider Levon le Encounter Details Date Type Department Care Team (Late st Contact Info) Description 05/01/2008 Outpatient Historical HIS IN BED Sj Ed, Physician NO ADDRESS ON FILE Cassie Woodruff MD [address] [place] [id number] Riky Mejía MD NO ADDRESS ON FILE [...] on file Legal Sex Female 6:28 AM EXTRUSION BENDER Gender Identity Not on file Sexual Orientation Not on file documented as of this encounter Plan of Treatment Not on file documented as of this encounter Procedures Procedure Name Priority Date/Time Associated Diagnosis Comments POC GLUCOSE Routine 05/12/2008 7:37 AM EXTRUSION BENDER POC GLUCOSE Routine 05/11/2008 9:43 PM EXTRUSION BENDER POC GLUCOSE Routine 05/11/2008 5:35 PM EXTRUSION BENDER POC GLUCOSE Routine 05/11/2008 11:40 AM EXTRUSION BENDER POC GLUCOSE Routine 05/11/2008 7:38 AM EXTRUSION BENDER POC GLUCOSE Routine 05/10/2008 9:54 PM EXTRUSION BENDER POC GLUCOSE Routine 05/10/2008 5:34 PM EXTRUSION BENDER POC GLUCOSE Routine 05/10/2008 12:08 PM EXTRUSION BENDER POC GLUCOSE Routine 05/10/2008 8:31 AM EXTRUSION BENDER CBC WITH DIFFERENTIAL Routine 05/10/2008 5:47 AM EXTRUSION BENDER COMPREHENSIVE METABOLIC PANEL Routine 05/10/2008 5:47 AM EXTRUSION BENDER POC GLUCOSE Routine 05/09/2008 9:17 PM EXTRUSION BENDER POC GLUCOSE Routine 05/09/2008 6:31 PM EXTRUSION BENDER POC GLUCOSE Routine 05/09/2008 12:20 PM EXTRUSION BENDER POC GLUCOSE Routine 05/09/2008 8:50 AM EXTRUSION BENDER POC GLUCOSE Routine 05/08/2008 8:06 PM CDT [...] * (ABNORMAL) POC GLUCOSE (05/12/2008 7:37 AM EXTRUSION BENDER) GLUCOSE POC 124(H) 60 - 100 mg/dL [facility] Venous blood specimen (specimen) 05/12/2008 7:37 AM EXTRUSION BENDER 05/13/2008 3:52 AM EXTRUSION BENDER us Riky Mejía MD POINT OF CARE TESTING Final Result Performing Organization Address [facility] Phone Number INTERFACE SYSTEM Refer to clinic/hospital department [facility] CLIA# [id number] [address] [place] [address] * (ABNORMAL) POC GLUCOSE (05/11/2008 9:43 PM EXTRUSION BENDER) GLUCOSE POC 123(H) 60 - 100 mg/dL [facility] Venous blood specimen (specimen) 05/11/2008 9:43 PM EXTRUSION BENDER 05/12/2008 3:33 AM EXTRUSION BENDER us Riky Mejía MD POINT OF CARE TESTING Final Result Performing Organization Address [facility] de Phone Number INTERFACE SYSTEM Refer to clinic/hospital department [facility] CLIA# [id number] [address] [place] [address] * (ABNORMAL) POC GLUCOSE (05/11/2008 5:35 PM EXTRUSION BENDER) GLUCOSE POC 117(H) 60 - 100 mg/dL [facility] Venous blood specimen (specimen) 05/11/2008 5:35 PM EXTRUSION BENDER 05/12/2008 3:33 AM EXTRUSION BENDER Riky Mejía MD POINT OF CARE TESTING Final Result Performing Organization Address City/[facility] de Phone Number INTERFACE SYSTEM Refer to clinic/hospital department [facility] CLIA# [id number] [address] [place] [address] * (ABNORMAL) POC GLUCOSE (05/11/2008 11:40 AM EXTRUSION BENDER) GLUCOSE POC 132(H) 60 - 100 mg/dL [facility] Venous blood specimen (specimen) 05/11/2008 11:40 AM EXTRUSION BENDER 05/12/2008 3:30 AM EXTRUSION BENDER Riky Mejía MD POINT OF CARE TESTING Final Result Performing Organization Address [facility] Phone Number INTERFACE SYSTEM Refer to clinic/hospital department [facility] CLIA# [id number] [address] [place] [address] * (ABNORMAL) POC GLUCOSE (05/11/2008 7:38 AM EXTRUSION BENDER) GLUCOSE POC 121(H) 60 - 100 mg/dL [facility] Venous blood specimen (specimen) 05/11/2008 7:38 AM EXTRUSION BENDER 05/12/2008 3:33 AM EXTRUSION BENDER Riky Mejía MD POINT OF CARE TESTING Final Result Performing Organization Address [facility] de Phone Number INTERFACE SYSTEM Refer to clinic/[facility] CLIA# [id number] [address] [place] [address] * (ABNORMAL) POC GLUCOSE (05/10/2008 9:54 PM EXTRUSION BENDER) GLUCOSE POC 122(H) 60 - 100 mg/dL [facility] Venous blood specimen (specimen) 05/10/2008 9:54 PM EXTRUSION BENDER 05/11/2008 4:24 AM EXTRUSION BENDER Riky Mejía MD POINT OF CARE TESTING Final Result Performing Organization Address City/[facility] Phone Number INTERFACE SYSTEM Refer to clinic/hospital department [facility] CLIA# [id number] [address] [place] [address] * (ABNORMAL) POC GLUCOSE (05/10/2008 5:34 PM EXTRUSION BENDER) GLUCOSE POC 111(H) 60 - 100 mg/dL [facility] Venous blood specimen (specimen) 05/10/2008 5:34 PM EXTRUSION BENDER 05/11/2008 4:24 AM EXTRUSION BENDER Riky Mejía MD POINT OF CARE TESTING Final Result Performing Organization Address [facility] Phone Number INTERFACE SYSTEM Refer to clinic/hospital department [facility] CLIA# [id number] [address] [place] [address] * (ABNORMAL) POC GLUCOSE (05/10/2008 12:08 PM EXTRUSION BENDER) GLUCOSE POC 127(H) 60 - 100 mg/dL [facility] Venous blood specimen (specimen) 05/10/2008 12:08 PM EXTRUSION BENDER 05/11/2008 4:18 AM EXTRUSION BENDER Riky Mejía MD POINT OF CARE TESTING Final Result Performing Organization Address [facility] de Phone Number INTERFACE SYSTEM Refer to clinic/hospital department [facility] CLIA# [id number] [address] [place] [address] * (ABNORMAL) POC GLUCOSE (05/10/2008 8:31 AM EXTRUSION BENDER) GLUCOSE POC 122(H) 60 - 100 mg/dL [facility] Venous blood specimen (specimen) 05/10/2008 8:31 AM EXTRUSION BENDER 05/11/2008 4:18 AM EXTRUSION BENDER Riky Mejía MD POINT OF CARE TESTING Final Result INTERFACE SYSTEM Refer to clinic/hospital department [facility] CLIA# [id number] [address] [place] [address] * (ABNORMAL) COMPREHENSIVE METABOLIC PANEL (05/10/2008 5:47 AM EXTRUSION BENDER) GLOBULIN (CALC) 2.3(L) 2.4 - 3.9 g/dL [facility] SODIUM 141 136 - 145 mEq/L [facility] BILIRUBIN TOTAL 0.4 0.3 - 1.2 mg/dL [facility] TOTAL PROTEIN 5.0(L) 6.3 - 8.2 g/dL [facility] BUN 7 7 - 17 mg/dL [facility] AST 24 8 - 33 U/L [facility] CO2 30 22 - 32 mmol/l [facility] ALBUMIN/GLOBULIN RATIO 1.2 1.0 - 2.3 [facility] ALBUMIN 2.7(L) 3.5 - 5.0 g/dL [facility] POTASSIUM 3.3(L) 3.5 - 5.0 mEq/L [facility] ANION GAP 7(L) 9 - 20 mEq/L [facility] CALCIUM 8.0(L) 8.4 - 10.5 mg/dL [facility] CREATININE 0.4(L) 0.7 - 1.2 mg/dL [facility] ALT 10 4 - 36 IU/L [facility] GLUCOSE 99 70 - 110 mg/dL [facility] CHLORIDE 107 95 - 110 mEq/L [facility] OSMOLALITY, CALCULATED 286 275 - 295 mOsm/Kg [facility] ALKALINE PHOSPHATASE 73 25 - 100 U/L [facility] Blood specimen (specimen) 05/10/2008 5:47 AM EXTRUSION BENDER 05/10/2008 5:52 AM EXTRUSION BENDER Riky Mejía MD CHEMISTRY ORDERABLES Final Result INTERFACE SYSTEM Refer to clinic/hospital department [facility] CLIA# [id number] [facility] [place] [address] * (ABNORMAL) CBC WITH DIFFERENTIAL (05/10/2008 5:47 AM EXTRUSION BENDER) LYMPHOCYTE ABSOLUTE 0.9(L) 1.2 - 4.0 K/ul [facility] MCV 96.4 84.0 - 103.0 Fl [facility] MPV 10.1 8.9 - 12.8 Fl [facility] BASOPHILS ABSOLUTE 0.0 0.0 - 0.2 K/ul [facility] BASOPHILS 0.7 0.0 - 1.0 % [facility] HEMOGLOBIN 8.3(L) 12.0 - 16.0 g/dL [facility] RDW 18.6(H) 11.0 - 14.5 % [facility] MONOCYTE ABSOLUTE 0.6 0.1 - 0.6 K/ul [facility] MONOCYTES 9.3 2.0 - 10.0 % [facility] WBC 6.1 4.5 - 11.0 K/ul [facility] MCH 29.5 27.0 - 34.0 pg [facility] NEUTROPHIL ABSOLUTE 4.3 2.0 - 8.0 K/ul [facility] NEUTROPHILS 70.5 42.2 - 75.2 % [facility] HEMATOCRIT 27.1(L) 36.0 - 46.0 % [facility] EOSINOPHILS 4.1 0.0 - 7.0 % [facility] PLATELETS 278 140 - 440 K/ul [facility] PERIPHERAL BLOOD SMEAR REVIEW Automated Diff [facility] EOSINOPHIL ABSOLUTE 0.3 0.0 - 0.7 K/ul [facility] RBC 2.81(L) 4.20 - 5.40 Mil/ul [facility] LYMPHOCYTES 15.4(L) 24.0 - 44.0 % [facility] MCHC 30.6 30.0 - 35.0 g/dL [facility] Blood specimen (specimen) 05/10/2008 5:47 AM EXTRUSION BENDER 05/10/2008 5:52 AM EXTRUSION BENDER us Ottoniel Vanegas MD HEMATOLOGY ORDERABLES Teresa l Result Performing Organization Address [facility] Phone Number INTERFACE SYSTEM Refer to clinic/hospital department [facility] CLIA# [id number] [address] [place] [address] * (ABNORMAL) POC GLUCOSE (05/09/2008 9:17 PM EXTRUSION BENDER) COMMENT POC Follow Protocol [facility] GLUCOSE POC 116(H) 60 - 100 mg/dL [facility] Venous blood specimen (specimen) 05/09/2008 9:17 PM EXTRUSION BENDER 05/10/2008 3:50 AM EXTRUSION BENDER us Riky Mejía MD POINT OF CARE TESTING Final Result Performing Organization Address [facility] Phone Number INTERFACE SYSTEM Refer to clinic/hospital department [facility] CLIA# [id number] [address] [place] [address] * POC GLUCOSE (05/09/2008 6:31 PM EXTRUSION BENDER) GLUCOSE POC 96 60 - 100 mg/dL [facility] Venous blood specimen (specimen) 05/09/2008 6:31 PM EXTRUSION BENDER 05/10/2008 3:50 AM EXTRUSION BENDER us Riky Mejía MD POINT OF CARE TESTING Final Result Performing Organization Address [facility] de Phone Number INTERFACE SYSTEM Refer to clinic/hospital department [facility] CLIA# [id number] [address] [place] [address] * (ABNORMAL) POC GLUCOSE (05/09/2008 12:20 PM EXTRUSION BENDER) GLUCOSE POC 123(H) 60 - 100 mg/dL [facility] Venous blood specimen (specimen) 05/09/2008 12:20 PM EXTRUSION BENDER 05/10/2008 3:50 AM EXTRUSION BENDER Riky Mejía MD POINT OF CARE TESTING Final Result Performing Organization Address [facility] de Phone Number INTERFACE SYSTEM Refer to clinic/hospital department [facility] CLIA# [id number] [address] [place] [address] * (ABNORMAL) POC GLUCOSE (05/09/2008 8:50 AM EXTRUSION BENDER) GLUCOSE POC 139(H) 60 - 100 mg/dL [facility] Venous blood specimen (specimen) 05/09/2008 8:50 AM EXTRUSION BENDER 05/10/2008 3:50 AM EXTRUSION BENDER Riky Mejía MD POINT OF CARE TESTING Final Result Performing Organization Address [facility] de Phone Number INTERFACE SYSTEM Refer to clinic/hospital department [facility] CLIA# [id number] [address] [place] [address] * (ABNORMAL) POC GLUCOSE (05/08/2008 8:06 PM CDT) GLUCOSE POC 115(H) 60 - 100 mg/dL [facility] COMMENT POC Recheck result [facility] Venous blood specimen (specimen) 05/08/2008 8:06 PM CDT 05/10/2008 7:16 AM EXTRUSION BENDER Riky Mejía MD POINT OF CARE TESTING Final Result Performing Organization Address [facility] de Phone Number INTERFACE SYSTEM Refer to clinic/hospital department [facility] CLIA# [id number] [address] [place] [address] * (ABNORMAL) POC GLUCOSE (05/08/2008 6:26 PM CDT) COMMENT POC Recheck result [facility] GLUCOSE POC 119(H) 60 - 100 mg/dL [facility] Venous blood specimen (specimen) 05/08/2008 6:26 PM CDT 05/10/2008 7:16 AM EXTRUSION BENDER Riky Mejía MD POINT OF CARE TESTING Final Result Performing Organization Address [facility] de Phone Number INTERFACE SYSTEM Refer to clinic/hospital department [facility] CLIA# [id number] [address] [place] [address] * (ABNORMAL) POC GLUCOSE (05/08/2008 12:27 PM CDT) [facility] GLUCOSE POC 130(H) 60 - 100 mg/dL [facility] Venous blood specimen (specimen) 05/08/2008 12:27 PM CDT 05/09/2008 1:13 AM CDT Riky Mejía MD POINT OF CARE TESTING Final Result Performing Organization Address [facility] Phone Number INTERFACE SYSTEM Refer to clinic/hospital department [facility] CLIA# [id number] [address] [place] [address] * (ABNORMAL) CBC WITH DIFFERENTIAL (05/08/2008 7:35 AM CDT) HEMOGLOBIN 8.0(L) 12.0 - 16.0 g/dL [facility] MONOCYTES 8.7 2.0 - 10.0 % [facility] RDW 18.5(H) 11.0 - 14.5 % [facility] MONOCYTE ABSOLUTE 0.7(H) 0.1 - 0.6 K/ul [facility] WBC 7.5 4.5 - 11.0 K/ul [facility] NEUTROPHILS 73.3 42.2 - 75.2 % [facility] MCH 29.7 27.0 - 34.0 pg [facility] NEUTROPHIL ABSOLUTE 5.5 2.0 - 8.0 K/ul [facility] HEMATOCRIT 25.8(L) 36.0 - 46.0 % [facility] PLATELETS 219 140 - 440 K/ul [facility] EOSINOPHIL ABSOLUTE 0.3 0.0 - 0.7 K/ul [facility] EOSINOPHILS 4.3 0.0 - 7.0 % [facility] RBC 2.69(L) 4.20 - 5.40 Mil/ul [facility] MCHC 31.0 30.0 - 35.0 g/dL [facility] LYMPHOCYTE ABSOLUTE 0.9(L) 1.2 - 4.0 K/ul [facility] LYMPHOCYTES 12.6(L) 24.0 - 44.0 % [facility] MCV 95.9 84.0 - 103.0 Fl [facility] BASOPHILS 1.1(H) 0.0 - 1.0 % [facility] MPV 10.6 8.9 - 12.8 Fl [facility] BASOPHILS ABSOLUTE 0.1 0.0 - 0.2 K/ul [facility] Blood specimen (specimen) 05/08/2008 7:35 AM CDT 05/08/2008 7:48 AM CDT us Riky Mejía MD HEMATOLOGY ORDERABLES Final Result INTERFACE SYSTEM Refer to clinic/hospital department [facility] CLIA# [id number] [facility] [place] [address] * (ABNORMAL) POC GLUCOSE (05/08/2008 5:15 AM CDT) GLUCOSE POC 132(H) 60 - 100 mg/dL [facility] Venous blood specimen (specimen) 05/08/2008 5:15 AM CDT 05/09/2008 1:13 AM CDT Riky Mejía MD POINT OF CARE TESTING Final Result Performing Organization Address City/[facility] de Phone Number INTERFACE SYSTEM Refer to clinic/hospital department [facility] CLIA# [id number] [address] [place] [address] * (ABNORMAL) POC GLUCOSE (05/07/2008 8:43 PM CDT) GLUCOSE POC 137(H) 60 - 100 mg/dL [facility] COMMENT POC Recheck result [facility] Venous blood specimen (specimen) 05/07/2008 8:43 PM CDT 05/10/2008 7:16 AM EXTRUSION BENDER Riky Mejía MD POINT OF CARE TESTING Final Result Performing Organization Address [facility] de Phone Number INTERFACE SYSTEM Refer to clinic/hospital department [facility] CLIA# [id number] [address] [place] [address] * (ABNORMAL) POC GLUCOSE (05/07/2008 5:13 PM CDT) GLUCOSE POC 137(H) 60 - 100 mg/dL [facility] COMMENT POC Recheck result [facility] Venous blood specimen (specimen) 05/07/2008 5:13 PM CDT 05/10/2008 7:16 AM EXTRUSION BENDER Riky Mejía MD POINT OF CARE TESTING Final Result Performing Organization Address City/[facility] de Phone Number INTERFACE SYSTEM Refer to clinic/hospital department [facility] CLIA# [id number] [address] [place] [address] * (ABNORMAL) POC GLUCOSE (05/07/2008 12:06 PM CDT) COMMENT POC Notify RN [facility] GLUCOSE POC 159(H) 60 - 100 mg/dL [facility] Venous blood specimen (specimen) 05/07/2008 12:06 PM CDT 05/08/2008 3:26 AM CDT Riky Mejía MD POINT OF CARE TESTING Final Result Performing Organization Address City/[facility] de Phone Number INTERFACE SYSTEM Refer to clinic/hospital department [facility] CLIA# [id number] [address] [place] [address] * (ABNORMAL) POC GLUCOSE (05/07/2008 8:20 AM CDT) GLUCOSE POC 135(H) 60 - 100 mg/dL [facility] COMMENT POC Notify R.N [facility] Venous blood specimen (specimen) 05/07/2008 8:20 AM CDT 05/08/2008 3:26 AM CDT Riky Mejía MD POINT OF CARE TESTING Final Result Performing Organization Address [facility] de Phone Number INTERFACE SYSTEM Refer to clinic/hospital department [facility] CLIA# [id number] [address] [place] [address] * (ABNORMAL) POC GLUCOSE (05/07/2008 5:22 AM CDT) GLUCOSE POC 133(H) 60 - 100 mg/dL [facility] Venous blood specimen (specimen) 05/07/2008 5:22 AM CDT 05/08/2008 3:25 AM CDT us Riky Mejía MD POINT OF CARE TESTING Final Result Performing Organization Address City/[facility] de Phone Number INTERFACE SYSTEM Refer to clinic/hospital department [facility] CLIA# [id number] [address] [place] [address] * (ABNORMAL) POC GLUCOSE (05/06/2008 8:39 PM CDT) GLUCOSE POC 116(H) 60 - 100 mg/dL [facility] COMMENT POC Notify R.N [facility] Venous blood specimen (specimen) 05/06/2008 8:39 PM CDT 05/07/2008 3:27 AM CDT us Riky Mejía MD POINT OF CARE TESTING Final Result INTERFACE SYSTEM Refer to clinic/hospital department [facility] CLIA# [id number] [address] [place] [address] * CT ABDOMEN PELVIS W CONTRAST (05/06/2008 [...] GLUCOSE POC 126(H) 60 - 100 mg/dL [facility] Venous blood specimen (specimen) 05/06/2008 5:38 PM CDT 05/07/2008 3:27 AM CDT Riky Mejía MD POINT OF CARE TESTING Final Result Performing Organization Address [facility] Phone Number INTERFACE SYSTEM Refer to clinic/hospital department [facility] CLIA# [id number] [address] [place] [address] * (ABNORMAL) POC GLUCOSE (05/06/2008 12:55 PM CDT) GLUCOSE POC 120(H) 60 - 100 mg/dL [facility] Venous blood specimen (specimen) 05/06/2008 12:55 PM CDT 05/07/2008 3:27 AM CDT Riky Mejía MD POINT OF CARE TESTING Final Result Performing Organization Address [facility] Phone Number INTERFACE SYSTEM Refer to clinic/hospital department [facility] CLIA# [id number] [address] [place] [address] * (ABNORMAL) POC GLUCOSE (05/06/2008 8:03 AM CDT) GLUCOSE POC 134(H) 60 - 100 mg/dL [facility] Venous blood specimen (specimen) 05/06/2008 8:03 AM CDT 05/07/2008 3:24 AM CDT Riky Mejía MD POINT OF CARE TESTING Final Result Performing Organization Address [facility] Phone Number INTERFACE SYSTEM Refer to clinic/[facility] CLIA# [id number] [address] [place] [address] * (ABNORMAL) BASIC METABOLIC PANEL (05/06/2008 5:34 AM CDT) CREATININE 0.5(L) 0.7 - 1.2 mg/dL [facility] CALCIUM 8.1(L) 8.4 - 10.5 mg/dL [facility] GLUCOSE 111(H) 70 - 110 mg/dL [facility] CHLORIDE 107 95 - 110 mEq/L [facility] ANION GAP 11 9 - 20 mEq/L [facility] SODIUM 137 136 - 145 mEq/L [facility] BUN 10 7 - 17 mg/dL [facility] CO2 23 22 - 32 mmol/l [facility] POTASSIUM 3.7 3.5 - 5.0 mEq/L [facility] OSMOLALITY, CALCULATED 281 275 - 295 mOsm/Kg [facility] Blood specimen (specimen) 05/06/2008 5:34 AM CDT 05/06/2008 5:34 AM CDT Riky Mejía MD CHEMISTRY ORDERABLES Final Result Performing Organization Address City/State/[facility] Co de Phone Number INTERFACE SYSTEM Refer to clinic/hospital department [facility] CLIA# [id number] [address] [place] [address] * (ABNORMAL) CBC WITH DIFFERENTIAL (05/06/2008 5:34 AM CDT) LYMPHOCYTES 11.5(L) 24.0 - 44.0 % [facility] MCHC 30.9 30.0 - 35.0 g/dL [facility] LYMPHOCYTE ABSOLUTE 0.9(L) 1.2 - 4.0 K/ul [facility] MCV 96.3 84.0 - 103.0 Fl [facility] MPV 11.1 8.9 - 12.8 Fl [facility] BASOPHILS ABSOLUTE 0.0 0.0 - 0.2 K/ul [facility] BASOPHILS 0.4 0.0 - 1.0 % [facility] HEMOGLOBIN 8.0(L) 12.0 - 16.0 g/dL [facility] RDW 18.5(H) 11.0 - 14.5 % [facility] MONOCYTE ABSOLUTE 0.7(H) 0.1 - 0.6 K/ul [facility] MONOCYTES 9.2 2.0 - 10.0 % [facility] WBC 7.7 4.5 - 11.0 K/ul [facility] MCH 29.7 27.0 - 34.0 pg [facility] NEUTROPHIL ABSOLUTE 5.8 2.0 - 8.0 K/ul [facility] NEUTROPHILS 75.3(H) 42.2 - 75.2 % [facility] HEMATOCRIT 25.9(L) 36.0 - 46.0 % [facility] EOSINOPHILS 3.6 0.0 - 7.0 % [facility] PLATELETS 203 140 - 440 K/ul [facility] PERIPHERAL BLOOD SMEAR REVIEW Automated Diff [facility] EOSINOPHIL ABSOLUTE 0.3 0.0 - 0.7 K/ul [facility] RBC 2.69(L) 4.20 - 5.40 Mil/ul [facility] Blood specimen (specimen) 05/06/2008 5:34 AM CDT 05/06/2008 5:34 AM CDT us Riky Mejía MD HEMATOLOGY ORDERABLES Final Result Performing Organization Address City/[facility] Co de Phone Number INTERFACE SYSTEM Refer to clinic/hospital department [facility] CLIA# [id number] [address] [place] [address] * (ABNORMAL) POC GLUCOSE (05/05/2008 8:26 PM CDT) [facility] GLUCOSE POC 157(H) 60 - 100 mg/dL [facility] Venous blood specimen (specimen) 05/05/2008 8:26 PM CDT 05/06/2008 3:31 AM CDT us Riky Mejía MD POINT OF CARE TESTING Final Result Performing Organization Address City/[facility]/ZIP Co de Phone Number INTERFACE SYSTEM Refer to clinic/hospital department [facility] CLIA# [id number] [address] [place] [address] * (ABNORMAL) POC GLUCOSE (05/05/2008 4:57 PM CDT) GLUCOSE POC 124(H) 60 - 100 mg/dL [facility] Venous blood specimen (specimen) 05/05/2008 4:57 PM CDT 05/06/2008 3:31 AM CDT Riky Mejía MD POINT OF CARE TESTING Final Result Performing Organization Address [facility] de Phone Number INTERFACE SYSTEM Refer to clinic/hospital department [facility] CLIA# [id number] [place] [address] * (ABNORMAL) POC GLUCOSE (05/05/2008 11:30 AM CDT) GLUCOSE POC 127(H) 60 - 100 mg/dL [facility] Venous blood specimen (specimen) 05/05/2008 11:30 AM CDT 05/06/2008 3:31 AM CDT Riky Mejía MD POINT OF CARE TESTING Final Result Performing Organization Address [facility] [facility] de Phone Number INTERFACE SYSTEM Refer to clinic/hospital department [facility] CLIA# [id number] [address] [place] [address] * (ABNORMAL) POC GLUCOSE (05/05/2008 8:05 AM CDT) GLUCOSE POC 137(H) 60 - 100 mg/dL [facility] Venous blood specimen (specimen) 05/05/2008 8:05 AM CDT 05/06/2008 3:31 AM CDT Riky Mejía MD POINT OF CARE TESTING Final Result Performing Organization Address City/[facility] Co de Phone Number INTERFACE SYSTEM Refer to clinic/hospital department [facility] CLIA# [id number] [address] [place] [address] * (ABNORMAL) POC GLUCOSE (05/04/2008 9:56 PM CDT) GLUCOSE POC 115(H) 60 - 100 mg/dL [facility] Venous blood specimen (specimen) 05/04/2008 9:56 PM CDT 05/05/2008 2:27 AM CDT Riky Mejía MD POINT OF CARE TESTING Final Result Performing Organization Address [facility] de Phone Number INTERFACE SYSTEM Refer to clinic/hospital department [facility] CLIA# [id number] [address] [place] [address] * (ABNORMAL) POC GLUCOSE (05/04/2008 5:34 PM CDT) GLUCOSE POC 120(H) 60 - 100 mg/dL [facility] Venous blood specimen (specimen) 05/04/2008 5:34 PM CDT 05/05/2008 5:02 AM CDT Riky Mejía MD POINT OF CARE TESTING Final Result Performing Organization Address [facility] de Phone Number INTERFACE SYSTEM Refer to clinic/hospital department [facility] CLIA# [id number] [address] [place] [address] * (ABNORMAL) POC GLUCOSE (05/04/2008 11:15 AM CDT) GLUCOSE POC 133(H) 60 - 100 mg/dL [facility] Venous blood specimen (specimen) 05/04/2008 11:15 AM CDT 05/05/2008 2:27 AM CDT Riky Mejía MD POINT OF CARE TESTING Final Result Performing Organization Address City/[facility] Co de Phone Number INTERFACE SYSTEM Refer to clinic/hospital department [facility] CLIA# [id number] [address] [place] [address] * URINE CULTURE (05/04/2008 9:06 AM CDT) FINAL REPORT No growth INTERFA CE SYSTEM 05/04/2008 9:06 AM CDT 05/04/2008 9:06 AM CDT Riky Mejía MD MICROBIOLOGY - GENERAL ORDJos ATKINSON Final Result Performing Organization Address [facility] Phone Number INTERFACE SYSTEM Refer to clinic/hospital department * (ABNORMAL) POC GLUCOSE (05/04/2008 7:37 AM CDT) GLUCOSE POC 139(H) 60 - 100 mg/dL [facility] Venous blood specimen (specimen) 05/04/2008 7:37 AM CDT 05/05/2008 2:27 AM CDT us Riky Mejía MD POINT OF CARE TESTING Final Result Performing Organization Address [facility] Phone Number INTERFACE SYSTEM Refer to clinic/hospital department [facility] CLIA# [id number] [address] [place] [address] * (ABNORMAL) URINALYSIS MICROSCOPY ONLY (05/04/2008 2:12 AM CDT) HYALINE CAST None Seen 0 - 2 [facility] WBC URINE 0-2 0 - 2 [facility] BACTERIA UA Small(A) None Seen [facility] RBC UA 6-10(A) 0 - 2 [facility] Urine specimen (specimen) 05/04/2008 2:12 AM CDT 05/04/2008 2:12 AM CDT Narrative INTERFACE SYSTEM - 05/04/2008 2:30 AM CDT Microscopic ordered by policy Riky Mejía MD URINE ORDERABLES Final Resu lt Performing Organization Address [facility] de Phone Number INTERFACE SYSTEM Refer to clinic/hospital department [facility] CLIA# [id number] [address] [place] [address] * ICTOTEST (05/04/2008 2:12 AM CDT) ICTO Negative Negative [facility] Urine specimen (specimen) 05/04/2008 2:12 AM CDT 05/04/2008 2:12 AM CDT Narrative INTERFACE SYSTEM - 05/04/2008 2:30 AM CDT Bili verified by ictotest us Riky Mejía MD URINE ORDERABLES Final Resu lt Performing Organization Address [facility] de Phone Number INTERFACE SYSTEM Refer to clinic/hospital department [facility] CLIA# [id number] [address] [place] [address] * (ABNORMAL) URINALYSIS (05/04/2008 2:12 AM CDT) LEUKOCYTE ESTERASE UA NEGATIVE NEGATIVE [facility] KETONES UA Trace(A) NEGATIVE [facility] COLOR UA Yellow Straw [facility] PROTEIN UA 100 mg/dl(A) NEGATIVE [facility] SPECIFIC GRAVITY UA 1.010 <=1.005 [facility] NITRITE UA NEGATIVE NEGATIVE [facility] UROBILINOGEN UA 0.2 0.2 [facility] CLARITY UA Clear Clear [facility] GLUCOSE UA NEGATIVE NEGATIVE [facility] MICRO EXAM Yes(A) No [facility] PH UA 6.5 5.0 - 9.0 [facility] BLOOD UA MODERATE(A) NEGATIVE [facility] Urine specimen (specimen) 05/04/2008 2:12 AM CDT 05/04/2008 2:12 AM CDT us Riky Mejía MD URINE ORDERABLES Final Resu lt Performing Organization Address [facility] de Phone Number INTERFACE SYSTEM Refer to clinic/hospital department [facility] CLIA# [id number] [address] [place] [address] * BLOOD CULTURE (05/04/2008 2:02 AM CDT) FINAL REPORT No growth INTERFA CE SYSTEM Blood specimen (specimen) 05/04/2008 2:02 AM CDT 05/04/2008 3:36 AM CDT us Riky Mejía MD [facility]BIOLOGY - [facility] Final Result Performing Organization Address [facility] de Phone Number INTERFACE SYSTEM Refer to clinic/hospital department * (ABNORMAL) BASIC METABOLIC PANEL (05/04/2008 1:55 AM CDT) OSMOLALITY, CALCULATED 282 275 - 295 mOsm/Kg [facility] POTASSIUM 4.3 3.5 - 5.0 mEq/L [facility] CREATININE 0.6(L) 0.7 - 1.2 mg/dL [facility] CALCIUM 9.0 8.4 - 10.5 mg/dL [facility] GLUCOSE 120(H) 70 - 110 mg/dL [facility] CHLORIDE 108 95 - 110 mEq/L [facility] SODIUM 135(L) 136 - 145 mEq/L [facility] ANION GAP 10 9 - 20 mEq/L [facility] BUN 17 7 - 17 mg/dL [facility] CO2 21(L) 22 - 32 mmol/l [facility] Blood specimen (specimen) 05/04/2008 1:55 AM CDT 05/04/2008 2:49 AM CDT us Riky Mejía MD CHEMISTRY ORDERABLES Final Result Performing Organization Address City/[facility] Co de Phone Number INTERFACE SYSTEM Refer to clinic/hospital department [facility] CLIA# [id number] [address] [place] [address] * (ABNORMAL) CBC WITH DIFFERENTIAL (05/04/2008 1:55 AM CDT) PERIPHERAL BLOOD SMEAR REVIEW Automated Diff [facility] EOSINOPHIL ABSOLUTE 0.2 0.0 - 0.7 K/ul [facility] RBC 2.86(L) 4.20 - 5.40 Mil/ul [facility] MCHC 31.6 30.0 - 35.0 g/dL [facility] LYMPHOCYTES 11.5(L) 24.0 - 44.0 % [facility] LYMPHOCYTE ABSOLUTE 1.0(L) 1.2 - 4.0 K/ul [facility] MCV 96.2 84.0 - 103.0 Fl [facility] MPV 11.1 8.9 - 12.8 Fl [facility] BASOPHILS ABSOLUTE 0.0 0.0 - 0.2 K/ul [facility] BASOPHILS 0.4 0.0 - 1.0 % [facility] HEMOGLOBIN 8.7(L) 12.0 - 16.0 g/dL [facility] RDW 18.6(H) 11.0 - 14.5 % [facility] MONOCYTE ABSOLUTE 1.0(H) 0.1 - 0.6 K/ul [facility] MONOCYTES 10.9(H) 2.0 - 10.0 % [facility] WBC 8.9 4.5 - 11.0 K/ul [facility] NEUTROPHILS 75.1 42.2 - 75.2 % [facility] MCH 30.4 27.0 - 34.0 pg [facility] NEUTROPHIL ABSOLUTE 6.7 2.0 - 8.0 K/ul [facility] HEMATOCRIT 27.5(L) 36.0 - 46.0 % [facility] PLATELETS 180 140 - 440 K/ul [facility] EOSINOPHILS 2.1 0.0 - 7.0 % [facility] Blood specimen (specimen) 05/04/2008 1:55 AM CDT 05/04/2008 2:25 AM CDT us Riky Mejía MD HEMATOLOGY ORDERABLES Final Result Performing Organization Address City/[facility] de Phone Number INTERFACE SYSTEM Refer to clinic/hospital department [facility] CLIA# [id number] [address] [place] [address] * BLOOD CULTURE (05/04/2008 1:55 AM CDT) FINAL REPORT No growth INTERFA CE SYSTEM REPORT/SPECIM EN COMMENT Specimen processed with suboptimal blood volume. Recommended adult blood volume is 8-10 mL per bottle. INTERFACE SYSTEM Blood specimen (specimen) 05/04/2008 1:55 AM CDT 05/04/2008 3:36 AM CDT us Riky Mejía MD MICROBIOLOGY - GENERAL ORDJos ATKINSON Final Result Performing Organization Address [facility] de Phone Number INTERFACE SYSTEM Refer to clinic/hospital department * (ABNORMAL) POC GLUCOSE (05/03/2008 9:24 PM CDT) GLUCOSE POC 137(H) 60 - 100 mg/dL [facility] Venous blood specimen (specimen) 05/03/2008 9:24 PM CDT 05/04/2008 4:27 AM CDT us Riky Mejía MD POINT OF CARE TESTING Final Result Performing Organization Address [facility] de Phone Number INTERFACE SYSTEM Refer to clinic/hospital department [facility] CLIA# [id number] [address] [place] [address] * (ABNORMAL) POC GLUCOSE (05/03/2008 4:35 PM CDT) GLUCOSE POC 128(H) 60 - 100 mg/dL [facility] Venous blood specimen (specimen) 05/03/2008 4:35 PM CDT 05/04/2008 4:27 AM CDT us Riky Mejía MD POINT OF CARE TESTING Final Result INTERFACE SYSTEM Refer to clinic/hospital department [facility] CLIA# [id number] [address] [place] [address] * CT ABDOMEN PELVIS W CONTRAST (05/03/2008 [...] mm volumetric acquisition with 125 mL intravenous [id number]. Comparison: None. Findings: Consolidative atelectasis versus airspace [...] APTT (05/03/2008 9:00 AM CDT) INR 1.3 [facility] Comment: Expected Values for INR: DVT/PE ?Goal INR 2.5; range 2.0 - 3.0 Valve Replacement ? Tissue ? Goal INR 2.5; range 2.0 - 3.0 ? Mechanical ?Goal INR 3.0; range 2.5 - 3.5 POST-ME ?Goal INR 2.5; range 2.0 - 3.0 ??or Goal 3.0; range 2.5 - 3.5 Atrial Fibrillation ?Goal INR 2.5; range 2.0 - 3.0 Ischemic Stroke ?Goal INR 2.5; range 2.0 - 3.0 For additional information see Guidelines for Anticoagulation available from the pharmacy [facility] ??[phone] PTT 38.5(H) 22.5 - 36.5 Secs [facility] Comment: Therapeutic Range: ?? Hi-level PE/DVT heparin protocol 80.1 -95.0 ??sec ? Lo-level PE/DVT ??heparin protocol ??67.1 - ??80.0 sec ?? Cardiac Heparin Protocol 67.1 - 85.0 sec ?? Neuro Heparin Protocol 67.1 - 80.0 sec As of 09/25/2007 note change in APTT Normal Range. PROTIME 18.0(H) 12.8 - 15.8 Secs [facility] Comment:As of 2007 not e change in normal range. Blood specimen (specimen) 05/03/2008 9:00 AM CDT 05/03/2008 9:10 AM CDT Narrative INTERFACE SYSTEM - 05/03/2008 9:23 AM CDT use blood in the lab us Riky Mejía MD HEMATOLOGY ORDERABLES Edite d INTERFACE SYSTEM Refer to clinic/hospital department [facility] CLIA# [id number] [address] [place] [address] * (ABNORMAL) BASIC METABOLIC PANEL (05/03/2008 5:39 AM CDT) GLUCOSE 122(H) 70 - 110 mg/dL [facility] CHLORIDE 106 95 - 110 mEq/L [facility] SODIUM 135(L) 136 - 145 mEq/L [facility] ANION GAP 14 9 - 20 mEq/L [facility] BUN 20(H) 7 - 17 mg/dL [facility] CO2 20(L) 22 - 32 mmol/l [facility] OSMOLALITY, CALCULATED 284 275 - 295 mOsm/Kg [facility] POTASSIUM 5.0 3.5 - 5.0 mEq/L [facility] CREATININE 0.6(L) 0.7 - 1.2 mg/dL [facility] CALCIUM 9.1 8.4 - 10.5 mg/dL [facility] Blood specimen (specimen) 05/03/2008 5:39 AM CDT 05/03/2008 6:15 AM CDT Riky Mejía MD CHEMISTRY ORDERABLES Final Result INTERFACE SYSTEM Refer to clinic/hospital department [facility] CLIA# [id number] [address] [place] [address] * (ABNORMAL) CBC WITH DIFFERENTIAL (05/03/2008 5:39 AM CDT) HEMATOCRIT 28.4(L) 36.0 - 46.0 % [facility] LYMPHOCYTE ABSOLUTE 0.6(L) 1.2 - 4.0 K/ul [facility] LYMPHOCYTES 5.9(L) 24.0 - 44.0 % [facility] MCHC 31.3 30.0 - 35.0 g/dL [facility] BASOPHILS 0.2 0.0 - 1.0 % [facility] MPV 10.9 8.9 - 12.8 Fl [facility] WBC 10.2 4.5 - 11.0 K/ul [facility] BASOPHILS ABSOLUTE 0.0 0.0 - 0.2 K/ul [facility] PERIPHERAL BLOOD SMEAR REVIEW Automated Diff [facility] MCV 96.3 84.0 - 103.0 Fl [facility] MONOCYTES 9.9 2.0 - 10.0 % [facility] RDW 18.3(H) 11.0 - 14.5 % [facility] MONOCYTE ABSOLUTE 1.0(H) 0.1 - 0.6 K/ul [facility] RBC 2.95(L) 4.20 - 5.40 Mil/ul [facility] HEMOGLOBIN 8.9(L) 12.0 - 16.0 g/dL [facility] NEUTROPHILS 82.5(H) 42.2 - 75.2 % [facility] NEUTROPHIL ABSOLUTE 8.5(H) 2.0 - 8.0 K/ul [facility] MCH 30.2 27.0 - 34.0 pg [facility] PLATELETS 163 140 - 440 K/ul [facility] EOSINOPHIL ABSOLUTE 0.2 0.0 - 0.7 K/ul [facility] EOSINOPHILS 1.5 0.0 - 7.0 % [facility] Blood specimen (specimen) 05/03/2008 5:39 AM CDT 05/03/2008 6:15 AM CDT Riky Mejía MD HEMATOLOGY ORDERABLES Final Result Performing Organization Address City/[facility] Phone Number INTERFACE SYSTEM Refer to clinic/hospital department [facility] CLIA# [id number] [address] [place] [address] * URINE CULTURE (05/02/2008 10:05 PM CDT) FINAL REPORT No growth INTERFA CE SYSTEM 05/02/2008 10:0 5 PM CDT 05/02/2008 10:05 PM CDT Riky Mejía MD MICROBIOLOGY - GENERAL ORDE RABLES Final Result Performing Organization Address City/[facility] de Phone Number INTERFACE SYSTEM Refer to clinic/hospital department * (ABNORMAL) URINALYSIS MICROSCOPY ONLY (05/02/2008 9:19 PM CDT) BACTERIA UA Few(A) None Seen [facility] WBC URINE 3-5(A) 0 - 2 [facility] RBC UA 0-2 0 - 2 [facility] HYALINE CAST 0-2 0 - 2 [facility] Urine specimen (specimen) 05/02/2008 9:19 PM CDT 05/02/2008 9:19 PM CDT Narrative INTERFACE SYSTEM - 05/02/2008 9:43 PM CDT Microscopic ordered by policy us Riky eMjía MD URINE ORDERABLES Final Resu lt Performing Organization Address [facility] Phone Number INTERFACE SYSTEM Refer to clinic/hospital department [facility] CLIA# [id number] [address] [place] [address] * (ABNORMAL) ICTOTEST (05/02/2008 9:19 PM CDT) ICTO Positive(A) Negative [facility] Urine specimen (specimen) 05/02/2008 9:19 PM CDT 05/02/2008 9:19 PM CDT Narrative INTERFACE SYSTEM - 05/02/2008 9:43 PM CDT Bili verified by ictotest us Riky Mejía MD URINE ORDERABLES Final Resu lt Performing Organization Address [facility] Phone Number INTERFACE SYSTEM Refer to clinic/hospital department [facility] CLIA# [id number] [facility] [place] [address] * (ABNORMAL) URINALYSIS (05/02/2008 9:19 PM CDT) CLARITY UA Clear Clear [facility] MICRO EXAM Yes(A) No [facility] GLUCOSE UA NEGATIVE NEGATIVE [facility] PH UA 5.5 5.0 - 9.0 [facility] BLOOD UA NEGATIVE NEGATIVE [facility] LEUKOCYTE ESTERASE UA NEGATIVE NEGATIVE [facility] KETONES UA Trace(A) NEGATIVE [facility] COLOR UA Yellow Straw [facility] PROTEIN UA 100 mg/dl(A) NEGATIVE [facility] SPECIFIC GRAVITY UA >=1.030(A) <=1.005 [facility] NITRITE UA POSITIVE(A) NEGATIVE [facility] UROBILINOGEN UA 0.2 0.2 [facility] Urine specimen (specimen) 05/02/2008 9:19 PM CDT 05/02/2008 9:19 PM CDT us Riky Mejía MD URINE ORDERABLES Final Resu lt INTERFACE SYSTEM Refer to clinic/hospital department [facility] CLIA# [id number] [address] [place] [address] * (ABNORMAL) BASIC METABOLIC PANEL (05/02/2008 6:50 PM CDT) BUN 22(H) 7 - 17 mg/dL [facility] CO2 23 22 - 32 mmol/l [facility] POTASSIUM 5.3(H) 3.5 - 5.0 mEq/L [facility] Comment: Specimen slightly hemolyzed OSMOLALITY, CALCULATED 278 275 - 295 mOsm/Kg [facility] CREATININE 0.7 0.7 - 1.2 mg/dL [facility] CALCIUM 9.2 8.4 - 10.5 mg/dL [facility] GLUCOSE 124(H) 70 - 110 mg/dL [facility] CHLORIDE 101 95 - 110 mEq/L [facility] ANION GAP 12 9 - 20 mEq/L [facility] SODIUM 131(L) 136 - 145 mEq/L [facility] Blood specimen (specimen) 05/02/2008 6:50 PM CDT 05/02/2008 7:01 PM CDT Riky Mejía MD CHEMISTRY ORDERABLES Final Result Performing Organization Address [facility] de Phone Number INTERFACE SYSTEM Refer to clinic/hospital department [facility] CLIA# [id number] [facility] [place] [address] * (ABNORMAL) BASIC METABOLIC PANEL (05/02/2008 8:38 AM CDT) [facility] OSMOLALITY, CALCULATED 280 275 - 295 mOsm/Kg [facility] CREATININE 0.8 0.7 - 1.2 mg/dL [facility] CALCIUM 9.5 8.4 - 10.5 mg/dL [facility] GLUCOSE 123(H) 70 - 110 mg/dL [facility] CHLORIDE 100 95 - 110 mEq/L [facility] ANION GAP 13 9 - 20 mEq/L [facility] SODIUM 131(L) 136 - 145 mEq/L [facility] BUN 26(H) 7 - 17 mg/dL [facility] CO2 24 22 - 32 mmol/l [facility] POTASSIUM 5.5(H) 3.5 - 5.0 mEq/L [facility] Blood specimen (specimen) 05/02/2008 8:38 AM CDT 05/02/2008 8:43 AM CDT us Riky eMjía MD CHEMISTRY ORDERABLES Final Result Performing Organization Address [facility] de Phone Number INTERFACE SYSTEM Refer to clinic/hospital department [facility] CLIA# [id number] [address] [place] [address] * (ABNORMAL) CBC WITH DIFFERENTIAL (05/02/2008 6:55 AM CDT) Pathologist [facility] LYMPHOCYTE ABSOLUTE 1.4 1.2 - 4.0 K/ul [facility] MCV 95.8 84.0 - 103.0 Fl [facility] MPV 11.2 8.9 - 12.8 Fl [facility] BASOPHILS ABSOLUTE 0.1 0.0 - 0.2 K/ul [facility] BASOPHILS 0.4 0.0 - 1.0 % [facility] HEMOGLOBIN 10.8(L) 12.0 - 16.0 g/dL [facility] RDW 18.3(H) 11.0 - 14.5 % [facility] MONOCYTE ABSOLUTE 1.5(H) 0.1 - 0.6 K/ul [facility] MONOCYTES 11.3(H) 2.0 - 10.0 % [facility] WBC 13.0(H) 4.5 - 11.0 K/ul [facility] MCH 30.3 27.0 - 34.0 pg [facility] NEUTROPHIL ABSOLUTE 10.0(H) 2.0 - 8.0 K/ul [facility] NEUTROPHILS 76.9(H) 42.2 - 75.2 % [facility] HEMATOCRIT 34.2(L) 36.0 - 46.0 % [facility] EOSINOPHILS 0.8 0.0 - 7.0 % [facility] PLATELETS 164 140 - 440 K/ul [facility] PERIPHERAL BLOOD SMEAR REVIEW Automated Diff [facility] EOSINOPHIL ABSOLUTE 0.1 0.0 - 0.7 K/ul [facility] RBC 3.57(L) 4.20 - 5.40 Mil/ul [facility] LYMPHOCYTES 10.6(L) 24.0 - 44.0 % [facility] MCHC 31.6 30.0 - 35.0 g/dL [facility] Blood specimen (specimen) 05/02/2008 6:55 AM CDT 05/02/2008 7:02 AM CDT us Riky Mejía MD HEMATOLOGY ORDERABLES Final Result INTERFACE SYSTEM Refer to clinic/hospital department [facility] CLIA# [id number] [address] [place] [address] documented in this encounter Visit Diagnoses Diagnosis Pressure ulcer, buttock(707.05) Pressure ulcer, buttock Pressure ulcer, lower back(707.03) Pressure ulcer, lower back Paraplegia ([facility]/HCC) Paraplegia Pulmonary collapse Body mass index 40 and over, adult Body Mass Index 40 and over, adult Morbid obesity (CMS/HCC) Morbid obesity Colostomy status ([facility]/HCC) Colostomy status Personal history of venous thrombosis and embolism Nausea alone Esophageal reflux Fever, unspecified Debility, unspecified Pressure ulcer, stage II(707.22) (CMS/HCC) Pressure ulcer, stage II Perforation of intestine ([facility]/HCC) Perforation of intestine Unspecified procedure as the cause of abnormal reaction of patient, or of later complication, without mention of misadventure at time of procedure Peritoneal abscess ([facility]/HCC) Peritoneal abscess Unspecified protein-calorie malnutrition Pressure ulcer, stage IV(707.24) ([facility]/HCC) Pressure ulcer, stage IV Pressure ulcer, upper back(707.02) Pressure ulcer, upper back Pressure ulcer, stage III(707.23) ([facility]/HCC) Pressure ulcer, stage III Removal of other organ (partial) (total) causing abnormal patient reaction, or later complication, without mention of misadventure at time of operation documented in this encounter Additional Health Concerns Infection Onset Date Last Indicated Resolved Time MRSA Comment:Kapil 10/26/15 10/27/2015 10/27/2015 documented as of this encounter Care Teams Wire Dropper Relationship Specialty Start Date End Date Jose Bowers MD [address] [place] [id number] PCP - General 12/31/05 documented as of this encounter
--- OUTSIDE RECORDS SUMMARY | 2024-08-29 08:49 | XMS_ITS | Encounter Summary ---
Author Organization [facility] Address [address] [place] [address] Care Team Providers Care Home Restoration Service Supervisor Name Role Phone Jose Bowers MD Primary Care Provider Unavailab le Encounter Details Date Type Department Care Team (Latest Contact Info) Description 02/05/2005 Outpatient Historical [facility] Acute Therapy Services [address] [place] [address] [place] [phone] Morenita Muñiz MD [address] [place] [address] ADMINISTRTVE ENCOUNT NOS (Primary Dx) Social History Tobacco Use Types Packs/Day Years Used Date Smoking Tobacco: Never Assessed Comments Unknown Sex and Gender Information Value Date Recorded Sex Assigned at Not on file Legal Sex Female 6:28 AM FOURTH HAND Gender Identity Not on file Sexual Orientation Not on file documented as of this encounter Plan of Treatment Not on file documented as of this encounter Visit Diagnoses Diagnosis Encounters for unspecified administrative purpose- Primary documented in this encounter Additional Health Concerns Infection Onset Date Last Indicated Resolved Time MRSA Comment:Kapil 10/26/15 10/27/2015 10/27/2015 documented as of this encounter Care Teams Home Restoration Service Supervisor Relationship Specialty Start Date End Date Jose Bowers MD [address] [place] [address] PCP - General 12/31/05 documented as of this encounter
--- OUTSIDE RECORDS SUMMARY | 2024-08-29 08:49 | XMS_ITS | Encounter Summary ---
Author Organization [facility] Address [address] [place] [address] Care Team Providers Care Credit And Loan Collections Supervisor Name Role Phone Jose Bowers MD Primary Care Provider Levon lowry Encounter Details Date Type Department Care Team (Latest Contact Info) Description 04/28/2008 Outpatient Historical [facility] [address] [place] [address] AMBULANCE, [facility] Paraplegia ([facility]); Pressure Ulcer, Upper Back; Pressure Ulcer, Unspecified Stage; Wheelchair Dependence; Bed Confinement Status; Encounter for Long-Term (Current) Use of Other Medications; Encounter for Long-Term (Current) Use of Insulin ([facility]); Personal History of Allergy to Penicillin; Personal History of Allergy to Narcotic Agent Social History Tobacco Use Types Packs/Day Years Used Date Smoking Tobacco: Never Assessed Comments Unknown Sex and Gender Information Value Date Recorded Sex Assigned at Not on file 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 Sex Female 6:28 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 TECHNICIAN Gender Identity Not on file Sexual Orientation Not on file documented as of this encounter Plan of Treatment Not on file documented as of this encounter Visit Diagnoses Diagnosis Paraplegia ([facility]) Paraplegia Pressure ulcer, upper back(707.02) Pressure ulcer, upper back Pressure ulcer, unspecified stage(707.20) Pressure ulcer, unspecified stage Wheelchair dependence Bed confinement status Encounter for long-term (current) use of other medications Encounter for long-term (current) use of insulin ([facility]) Encounter for long-term (current) use of insulin Personal history of allergy to penicillin Personal history of allergy to narcotic agent documented in this encounter Additional Health Concerns Infection Onset Date Last Indicated Resolved Time MRSA Comment:Nares 4/20/16 10/27/2015 10/27/2015 documented as of this encounter Care Teams Credit And Loan Collections Supervisor Relationship Specialty Start Date End Date Jose Bowers MD [address] [place] [address] PCP - General 12/31/05 documented as of this encounter
--- NOTE | 2024-08-29 08:50 | ANES.PROC ---
Anesthesia Procedures Procedure/Date: 08/29/24 Central Venous Insert: Central Venous Line: R IJ Time Out Performed: Yes Consent: requested by attending/covering physician, from patient, risks and benefits reviewed and patient agrees to proceed Central Line: New Anesthesia monitors: pulse oximetry, EKG, BP cuff and oxygen Vein cannulated: right internal jugular Ultrasound used: to identify patency to vessel and to visualize needle entry to vein Post procedure: Obtain Chest X-Ray Additional Comments: Procedural area prepped with chloraprep, gown and gloves donned, full body drape applied. Window drape area prepped again with chloraprep. US used to identify R IJ which was very collapsed. Lidocaine 1% 3 cc applied as skin wheel over needle entry point. 18g angiocath over needle (seldinger) technique used to gain access to R IJ, aspiration of angiocath successful for heme, but no free flow of heme. US used to visualize wire in vein in-plane and [id number]. Vein dilated and triple-lumen threaded over guidewire. Guidewire removed. All three ports aspirated and flushed. Sutured in place and sterile dressing applied. CXR ordered.
--- OUTSIDE RECORDS SUMMARY | 2024-08-29 08:50 | XMS_ITS | Encounter Summary ---
Author Organization [facility] Address [address] [place] [address] Care Team Providers Care Risk Consulting Treasury Director Name Role Phone Jose Bowers MD Primary Care Provider Unavailab le Encounter Details Date Type Department Care Team (Latest Contact Info) Description 07/24/2006 Outpatient Historical [facility] [address] [place] [phone] Delmar Snow MD [address] [phone] Paraplegia (CMS/HCC) (Primary Dx) Social History Tobacco Use Types Packs/Day Years Used Date Smoking Tobacco: Never Assessed Comments Unknown Sex and Gender Information Value Date Recorded Sex Assigned at Not on file Legal Sex Female 6:28 AM SILVERING APPLICATOR Gender Identity Not on file Sexual Orientation Not on file documented as of this encounter Plan of Treatment Not on file documented as of this encounter Visit Diagnoses Diagnosis Paraplegia (CMS/HCC)- Primary Paraplegia documented in this encounter Additional Health Concerns Infection Onset Date Last Indicated Resolved Time MRSA Comment:Kapil 10/26/15 10/27/2015 10/27/2015 documented as of this encounter Care Teams Risk Consulting Treasury Director Relationship Specialty Start Date End Date Jose Bowers MD [address] [place] [address] PCP - General 12/31/05 documented as of this encounter
--- OUTSIDE RECORDS SUMMARY | 2024-08-29 08:50 | XMS_ITS | Encounter Summary ---
Author Organization [facility] Address [address] [place] [address] Care Team Providers Care Hole Digger Operator Name Role Phone Jose Bowers MD Primary Care Provider Unavailab le Encounter Details Date Type Department Care Team (Late st Contact Info) Description 12/31/2006 Outpatient Historical [facility] Physical Med and Rehab- [place] [address] [place] [phone] Jose Bowers MD [address] [place] [address] Paraplegia (CMS/HCC) (Primary Dx) Social History Tobacco Use Types Packs/Day Years Used Date Smoking Tobacco: Never Assessed Comments Unknown Sex and Gender Information Value Date Recorded Sex Assigned at Not on file Legal Sex Female 6:28 AM AUTOMATIC DOOR MECHANIC Gender Identity Not on file Sexual Orientation Not on file documented as of this encounter Plan of Treatment Not on file documented as of this encounter Visit Diagnoses Diagnosis Paraplegia (CMS/HCC)- Primary Paraplegia documented in this encounter Additional Health Concerns Infection Onset Date Last Indicated Resolved Time MRSA Comment:Kapil 10/26/15 10/27/2015 10/27/2015 documented as of this encounter Care Teams Hole Digger Operator Relationship Specialty Start Date End Date Jose Bowers MD [address] [place] [address] PCP - General 12/31/05 documented as of this encounter
--- OUTSIDE RECORDS SUMMARY | 2024-08-29 08:50 | XMS_ITS | Encounter Summary ---
Author Organization [facility] Address [address] [place] [address] Care Team Providers Care Circuit Manager Name Role Phone Jose Bowers MD Primary Care Provider Unavailab le Encounter Details Date Type Department Care Team (Late st Contact Info) Description 02/14/2006 Outpatient Historical [facility] Physical Med and Rehab- [place] [address] [place] [phone] Jose Bowers MD [address] [place] [address] Paraplegia (CMS/HCC) (Primary Dx) Social History Tobacco Use Types Packs/Day Years Used Date Smoking Tobacco: Never Assessed Comments Unknown Sex and Gender Information Value Date Recorded Sex Assigned at Not on file Legal Sex Female 6:28 AM TELEHEALTH NURSE Gender Identity Not on file Sexual Orientation Not on file documented as of this encounter Plan of Treatment Not on file documented as of this encounter Visit Diagnoses Diagnosis Paraplegia (CMS/HCC)- Primary Paraplegia documented in this encounter Additional Health Concerns Infection Onset Date Last Indicated Resolved Time MRSA Comment:Kapil 10/26/15 10/27/2015 10/27/2015 documented as of this encounter Care Teams Circuit Manager Relationship Specialty Start Date End Date Jose Bowers MD [address] [place] [address] PCP - General 12/31/05 documented as of this encounter
--- OUTSIDE RECORDS SUMMARY | 2024-08-29 08:50 | XMS_ITS | Clinical Summary ---
Author Organization [facility] Address [address] [facility] [place] [address] Care Team Providers Care Residential Subcontractor Name Role Phone Jose Bowers MD Primary [...] on file Legal Sex Female 6:28 AM LOBBYIST Gender Identity Not on file Sexual Orientation [...] AND B MEDICAID [place] [employer] , [address] [address] Advance Directives For more information, please contact: [phone] * Full Code (Latest Code Status on File) Date Activated Date Inactivated Comments 10/26/2015 6:24 AM 10/28/2015 4:22 PM Care Teams Residential Subcontractor Relationship Specialty Start Date End Date Jose Bowers MD [address] [place] [address] PCP - General 12/31/05
--- OUTSIDE RECORDS SUMMARY | 2024-08-29 08:50 | XMS_ITS | Encounter Summary ---
Author Organization [facility] Address [address] [place] [address] Care Team Providers Care Sound Truck Operator Name Role Phone Jose oBwers MD Primary Care Provider Unavailab le Encounter Details Date Type Department Care Team (Late st Contact Info) Description 10/02/2006 Outpatient Historical [facility] Physical Med and Rehab- [place] [address] [place] [phone] Jose Bowers MD [address] [place] [address] Paraplegia (CMS/HCC) (Primary Dx) Social History Tobacco Use Types Packs/Day Years Used Date Smoking Tobacco: Never Assessed Comments Unknown Sex and Gender Information Value Date Recorded Sex Assigned at Not on file Legal Sex Female 6:28 AM INSPECTOR CIRCUITRY NEGATIVE Gender Identity Not on file Sexual Orientation Not on file documented as of this encounter Plan of Treatment Not on file documented as of this encounter Visit Diagnoses Diagnosis Paraplegia (CMS/HCC)- Primary Paraplegia documented in this encounter Additional Health Concerns Infection Onset Date Last Indicated Resolved Time MRSA Comment:Kapil 10/26/15 10/27/2015 10/27/2015 documented as of this encounter Care Teams Sound Truck Operator Relationship Specialty Start Date End Date Jose Bowers MD [address] [place] [address] PCP - General 12/31/05 documented as of this encounter
--- OUTSIDE RECORDS SUMMARY | 2024-08-29 08:50 | XMS_ITS | Encounter Summary ---
Author Organization [facility] Address [address] [place] [address] Care Team Providers Care Embossing Clerk Name Role Phone Jose Bowers MD Primary Care Provider Unavailab le Encounter Details Date Type Department Care Team (Late st Contact Info) Description 11/01/2005 Outpatient Historical [facility] Physical Med and Rehab- [place] [address] [place] [phone] Jose Bowers MD [address] [place] [address] Unspecified Paralysis (CMS/HCC) (Primary Dx); Neurogenic Bladder, NOS Social History Tobacco Use Types Packs/Day Years Used Date Smoking Tobacco: Never Assessed Comments Unknown Sex and Gender Information Value Date Recorded Sex Assigned at Not on file Legal Sex Female 6:28 AM EMERGENCY DEPARTMENT PHYSICIAN Gender Identity Not on file Sexual Orientation [...] documented as of this encounter Care Teams Embossing Clerk Relationship Specialty Start Date End Date Jose Bowers MD [address] [place] [address] PCP - General 12/31/05 documented as of this encounter
--- OUTSIDE RECORDS SUMMARY | 2024-08-29 08:50 | XMS_ITS | Encounter Summary ---
Author Organization [facility] Address [address] [place] [address] Care Team Providers Care Vascular Radiologist Name Role Phone Jose Bowers MD Primary Care Provider Unavailab le Encounter Details Date Type Department Care Team (Late st Contact Info) Description 07/04/2004 Outpatient Historical [facility] Calvin Odonnell MD [address] [place] [id number] Social History Tobacco Use Types Packs/Day Years Used Date Smoking Tobacco: Never Assessed Comments Unknown Sex and Gender Information Value Date Recorded Sex Assigned at Not on file Legal Sex Female 6:28 AM 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
--- OUTSIDE RECORDS SUMMARY | 2024-08-29 08:50 | XMS_ITS | Encounter Summary ---
Author Organization [facility] Address [address] [place] [address] Care Team Providers Care Ibm Websphere Commerce Developer Name Role Phone Jose Bowers MD Primary Care Provider Unavailab le Encounter Details Date Type Department Care Team (Latest Contact Info) Description 08/30/2006 Outpatient Historical [facility] [address] [place] [phone] Jose Bowers MD [address] [place] [address] Pain in Joint, Pelvic Region and Thigh (Primary Dx) Social History Tobacco Use Types Packs/Day Years Used Date Smoking Tobacco: Never Assessed Comments Unknown Sex and Gender Information Value Date Recorded Sex Assigned at Not on file Legal Sex Female 6:28 AM ANIMAL SCIENTIST Gender Identity Not on file Sexual Orientation Not on file documented as of this encounter Plan of Treatment Not on file documented as of this encounter Procedures Procedure Name Priority Date/Time Associated Diagnosis Comments CBC WITH DIFFERENTIAL Routine 08/30/2006 12:42 PM ANIMAL SCIENTIST SEDIMENTATION RATE Routine 08/30/2006 12 :42 PM ANIMAL SCIENTIST CK Routine 08/30/2006 12:42 PM ANIMAL SCIENTIST documented in this encounter Results * (ABNORMAL) CK (08/30/2006 12:42 PM ANIMAL SCIENTIST) CK 201(H) 26 - 140 U/L INTERFACE SYSTEM Comment: As of 05 the [facility] has changed testing methods. ?? The new reference ranges are Males 38-174 ? Females 26-140 The old referance ranges were Males 0-155 ?Females 0-133 08/30/2006 12:4 2 PM ANIMAL SCIENTIST us Jose Bowers MD CHEMISTRY ORDERABLES Edited INTERFACE SYSTEM Refer to clinic/hospital department * (ABNORMAL) CBC WITH DIFFERENTIAL (08/30/2006 12:42 PM ANIMAL SCIENTIST) WBC 5.1 4.5 - 11.0 K/ul INTERFACE [...] K/ul INTERFACE SYSTEM 08/30/2006 12:4 2 PM ANIMAL SCIENTIST Jose Bowers MD HEMATOLOGY ORDERABLES Edited Performing Organization Address [facility] Co de Phone Number INTERFACE SYSTEM Refer to clinic/hospital department * (ABNORMAL) SEDIMENTATION RATE (08/30/2006 12:42 PM ANIMAL SCIENTIST) ESR (SEDIMENTATION RATE) 27(H) 0 - 22 mm/hr INTERFACE SYSTEM 08/30/2006 12:4 2 PM ANIMAL SCIENTIST Jose Bowers MD HEMATOLOGY ORDERABLES Edited Performing Organization Address [facility] de Phone Number INTERFACE SYSTEM Refer to clinic/hospital department documented in this encounter Visit Diagnoses Diagnosis Pain in joint, pelvic region and thigh- Primary documented in this encounter Additional Health Concerns Infection Onset Date Last Indicated Resolved Time MRSA Comment:Kapil 10/26/15 10/27/2015 10/27/2015 documented as of this encounter Care Teams Ibm Websphere Commerce Developer Relationship Specialty Start Date End Date Jose Bowers MD [address] [place] [address] PCP - General 12/31/05 documented as of this encounter
--- OUTSIDE RECORDS SUMMARY | 2024-08-29 08:50 | XMS_ITS | Encounter Summary ---
Author Organization [facility] Address [address] [place] [address] Care Team Providers Care All Terrain Vehicle Racer Name Role Phone Jose Bowers MD Primary Care Provider Unavailab le Encounter Details Date Type Department Care Team (Late st Contact Info) Description 08/30/2006 Outpatient Historical [facility] Physical Med and Rehab- [place] [id number] [place] [phone] Jose Bowers MD [address] [place] [address] Pain in Joint, Pelvic Region and Thigh (Primary Dx); Pain in Limb; Paraplegia (CMS/HCC) Social History Tobacco Use Types Packs/Day Years Used Date Smoking Tobacco: Never Assessed Comments Unknown Sex and Gender Information Value Date Recorded Sex Assigned at Not on file Legal Sex Female 6:28 AM AIRWORTHINESS SAFETY INSPECTOR Gender Identity Not on file Sexual Orientation Not on file documented as of this encounter Plan of Treatment Not on file documented as of this encounter Procedures Procedure Name Priority Date/Time Associated Diagnosis Comments XR PELVIS 3+ VW Routine 08/30/2006 12:33 PM AIRWORTHINESS SAFETY INSPECTOR documented in this encounter Results * XR PELVIS 3+ VW (08/30/2006 12:33 PM AIRWORTHINESS SAFETY INSPECTOR) Anatomical Region Laterality Modality Pelvis Other 08/30/2006 12:3 3 PM AIRWORTHINESS SAFETY INSPECTOR Narrative 08/30/2006 12:33 PM AIRWORTHINESS SAFETY INSPECTOR PELVIS AND RIGHT HIP: TECHNIQUE: Two views [...] Hip joint spaces are maintained normally. There estelle slight diastasesof the symphysis pubis. SI joints [...] documented as of this encounter Care Teams All Terrain Vehicle Racer Relationship Specialty Start Date End Date Jose Bowers MD [address] [place] [address] PCP - General 12/31/05 documented as of this encounter
--- OUTSIDE RECORDS SUMMARY | 2024-08-29 08:50 | XMS_ITS | Encounter Summary ---
Author Organization [facility] Address [address] [place] [address] Care Team Providers Care Head Of Cytogenetics Name Role Phone Jose Bowers MD Primary Care Provider Unavailab le Encounter Details Date Type Department Care Team (Late st Contact Info) Description 01/30/2007 Outpatient Historical [facility] Physical Med and Rehab- [place] [address] [place] [phone] Jose Bowers MD [address] [place] [address] Paraplegia (CMS/HCC) (Primary Dx) Social History Tobacco Use Types Packs/Day Years Used Date Smoking Tobacco: Never Assessed Comments Unknown Sex and Gender Information Value Date Recorded Sex Assigned at Not on file Legal Sex Female 6:28 AM HONEY PRODUCER Gender Identity Not on file Sexual Orientation Not on file documented as of this encounter Plan of Treatment Not on file documented as of this encounter Visit Diagnoses Diagnosis Paraplegia (CMS/HCC)- Primary Paraplegia documented in this encounter Additional Health Concerns Infection Onset Date Last Indicated Resolved Time MRSA Comment:Kapil 10/26/15 10/27/2015 10/27/2015 documented as of this encounter Care Teams Head Of Cytogenetics Relationship Specialty Start Date End Date Jose Bowers MD [address] [place] [address] PCP - General 12/31/05 documented as of this encounter
--- OUTSIDE RECORDS SUMMARY | 2024-08-29 08:50 | XMS_ITS | Encounter Summary ---
Author Organization [facility] Address [address] [place] [address] Care Team Providers Care College Basketball Coach Name Role Phone Jose Bowers MD Primary Care Provider Unavailab le Encounter Details Date Type Department Care Team (Late st Contact Info) Description 07/24/2006 Outpatient [facility] Physical Med and Rehab- [place] [address] [place] [phone] Jose Bowers MD [address] [place] [address] Paraplegia (CMS/HCC) (Primary Dx); Difficulty in Walking; Pain in Limb Social History Tobacco Use Types Packs/Day Years Used Date Smoking Tobacco: Never Assessed Comments Unknown Sex and Gender Information Value Date Recorded Sex Assigned at Not on file Legal Sex Female 6:28 AM STONE SPLITTER Gender Identity Not on file Sexual Orientation [...] documented as of this encounter Care Teams College Basketball Coach Relationship Specialty Start Date End Date Jose Bowers MD [address] [place] [address] PCP - General 12/31/05 documented as of this encounter
--- OUTSIDE RECORDS SUMMARY | 2024-08-29 08:50 | XMS_ITS | Encounter Summary ---
Author Organization [facility] Address [address] [place] [address] Care Team Providers Care Computerized Mill Recorder Name Role Phone Jose Bowers MD Primary Care Provider Unavail le Encounter Details Date Type Department Care Team (Late st Contact Info) Description 12/31/2005 Outpatient Historical [facility] Jose Bowers MD [address] [place] [address] Paraplegia (CMS/HCC) (Primary Dx) Social History Tobacco Use Types Packs/Day Years Used Date Smoking Tobacco: Never Assessed Comments Unknown Sex and Gender Information Value Date Recorded Sex Assigned at Not on file Legal Sex Female 6:28 AM MOLECULAR TECHNOLOGIST Gender Identity Not on file Sexual Orientation [...] INTERFACE SYSTEM Comment: As of 05 the [facility] has changed testing methods. ?? The new reference ranges are Males 38-174 ? Females 26-140 The old referance ranges were Males 0-155 ?Females 0-133 12/31/2005 12:4 8 PM CDT Jose Bowers MD CHEMISTRY ORDERABLES Final Resul t Performing Organization Address [facility] Phone Number INTERFACE SYSTEM Refer to clinic/hospital department * C-REACTIVE PROTEIN (12/31/2005 12:48 PM CDT) CRP 0.85 0.00 - 1.00 mg/dL INTERFACE SYSTEM 12/31/2005 12:4 8 PM CDT Jose Bowers MD CHEMISTRY ORDERABLES Final Resul t Performing Organization Address [facility] Number INTERFACE SYSTEM Refer to clinic/hospital department * SEDIMENTATION RATE (12/31/2005 12:48 PM CDT) ESR (SEDIMENTATION RATE) 18 0 - 22 mm/hr INTERFACE SYSTEM 12/31/2005 12:4 8 PM CDT Jose Bowers MD HEMATOLOGY ORDERABLES Final Resu lt Performing Organization Address [facility] Phone Number INTERFACE SYSTEM Refer [...] documented as of this encounter Care Teams Computerized Mill Recorder Relationship Specialty Start Date End Date Jose Bowers MD [address] [place] [address] PCP - General 12/31/05 documented as of this encounter
--- OUTSIDE RECORDS SUMMARY | 2024-08-29 08:50 | XMS_ITS | Encounter Summary ---
Author Organization [facility] Address [address] [place] [address] Care Team Providers Care Infusion Nurse Name Role Phone Jose Bowers MD Primary Care Provider Unavail le Encounter Details Date Type Department Care Team (Late st Contact Info) Description 12/31/2006 Outpatient Historical [facility] Jose Bowers MD [address] [place] [address] Pain in Soft Tissues of Limb (Primary Dx) Social History Tobacco Use Types Packs/Day Years Used Date Smoking Tobacco: Never Assessed Comments Unknown Sex and Gender Information Value Date Recorded Sex Assigned at Not on file Legal Sex Female 6:28 AM OPEN HEARTH STOCKYARD SUPERVISOR Gender Identity Not on file Sexual [...] Goal INR 3.0; range 2.5 - 3.5 POST-KS ? Goal INR 2.5; range 2.0 - [...] documented as of this encounter Care Teams Infusion Nurse Relationship Specialty Start Date End Date Jose Bowers MD [address] [place] [address] PCP - General 12/31/05 documented as of this encounter
--- OUTSIDE RECORDS SUMMARY | 2024-08-29 08:50 | XMS_ITS | Encounter Summary ---
Author Organization [facility] Address [address] [place] [address] Care Team Providers Care Brick Pointer Name Role Phone Jose Bowers MD Primary Care Provider Unavail le Encounter Details Date Type Department Care Team (Late st Contact Info) Description 11/26/2005 Inpatient Historical [facility] IN BED Jose Bowers MD [address] [place] [address] Other Specified Rehabilitation Procedure (Primary Dx) Social History Tobacco Use Types Packs/Day Years Used Date Smoking Tobacco: Never Assessed Comments Unknown Sex and Gender Information Value Date Recorded Sex Assigned at Not on file Legal Sex Female 6:28 AM POULTRY PATHOLOGIST Gender Identity Not on file Sexual Orientation [...] ORDERABLES Final Resul t Performing Organization Address [facility] Phone Number INTERFACE SYSTEM Refer to clinic/hospital department * TSH (11/27/2005 6:09 AM CDT) TSH 1.073 0.350 - 5.500 uIU/ml INTERFACE SYSTEM Comment: As of 04 at 3:00 p.m. [facility] has changed the methodology for TSH, and with this change the reference range has changed from 0.49-4.67 to 0.35-5.5 uIU/ml. 11/27/2005 6:09 AM CDT Jose Bowers MD CHEMISTRY ORDERABLES Final Resul t Performing Organization Address [facility] Phone Number INTERFACE SYSTEM Refer to [...] Goal INR 3.0; range 2.5 - 3.5 POST-MS ? Goal INR 2.5; range 2.0 - [...] ORDERABLES Final Resu lt Performing Organization Address [facility] Phone Number INTERFACE SYSTEM Refer to clinic/hospital department * (ABNORMAL) C-REACTIVE PROTEIN (11/27/2005 6:09 AM CDT) CRP 1.19(H) 0.00 - 1.00 mg/dL INTERFACE SYSTEM 11/27/2005 6:09 AM CDT Jose Bowers MD CHEMISTRY ORDERABLES Final Resul t Performing Organization Address [facility] Phone Number INTERFACE SYSTEM Refer to [...] INTERFACE SYSTEM Comment: As of 05 the [facility] has changed testing methods. ?? The new reference range is 25-100 The old referance range was 38-126 AST 26 8 - 33 U/L INTERFACE SYSTEM Comment: As of 05 the [facility] has changed testing methods. ?? The new reference range is 8-33 The old referance range was Males 17-59 ?Females 14-36 ALT 27 4 - 36 IU/L INTERFACE SYSTEM Comment: As of 05 the [facility] has changed testing methods. ?? The new reference range is 4-36 The old referance range was Males 21-72 ? Females 9-52 BILIRUBIN TOTAL 0.2(L) 0.3 - 1.2 mg/dL INTERFACE SYSTEM Comment: As of 05 the [facility] has changed testing methods. ?? The new [...] E SYSTEM 11/27/2005 6:00 AM CDT Jose Bowesr MD URINE ORDERABLES Final Result Performing Organization Address [facility] de Phone Number INTERFACE SYSTEM [...] URINE ORDERABLES Final Result Performing Organization Address [facility] Phone Number INTERFACE SYSTEM Refer to [...] Limited study. Nonspecific findings present. [facility] D: 11-26-05 ??2039 Dictated By: ??Marcus [...] Limited study. Nonspecific findings present. [facility] D: 11-26-052039 Dictated By: Marcus Eng [...] documented as of this encounter Care Teams Brick Pointer Relationship Specialty Start Date End Date Jose Bowers MD [address] [place] [address] PCP - General 12/31/05 documented as of this encounter
--- OUTSIDE RECORDS SUMMARY | 2024-08-29 08:50 | XMS_ITS | Encounter Summary ---
Author Organization [facility] Address [address] [place] [address] Care Team Providers Care Curtain Cutter Hand Name Role Phone Jose Bowers MD Primary Care Provider Unavailab le Encounter Details Date Type Department Care Team (Late st Contact Info) Description 04/15/2006 Outpatient Historical [facility] Physical Med and Re[facility]- [place] [address] [place] [id number] Jose Bowers MD [address] [place] [address] Paraplegia (CMS/HCC) (Primary Dx) Social History Tobacco Use Types Packs/Day Years Used Date Smoking Tobacco: Never Assessed Comments Unknown Sex and Gender Information Value Date Recorded Sex Assigned at Not on file Legal Sex Female 6:28 AM TRANSFER PUMPER Gender Identity Not on file Sexual Orientation Not on file documented as of this encounter Plan of Treatment Not on file documented as of this encounter Visit Diagnoses Diagnosis Paraplegia (CMS/HCC)- Primary Paraplegia documented in this encounter Additional Health Concerns Infection Onset Date Last Indicated Resolved Time MRSA Comment:Kapil 10/26/15 10/27/2015 10/27/2015 documented as of this encounter Care Teams Curtain Cutter Hand Relationship Specialty Start Date End Date Jose Bowers MD [address] [place] [address] PCP - General 12/31/05 documented as of this encounter
--- OUTSIDE RECORDS SUMMARY | 2024-08-29 08:50 | XMS_ITS | Encounter Summary ---
Author Organization [facility] Address [address] [place] [address] Care Team Providers Care Epic Willow Analyst Name Role Phone Jose Bowers MD Primary Care Provider Unavailab le Encounter Details Date Type Department Care Team (Late st Contact Info) Description 07/10/2007 Outpatient [facility] Physical Med and Rehab- [place] [address] [place] [address] Ramana Juarez MD [address] [place] [address] Social History Tobacco Use Types Packs/Day Years Used Date Smoking Tobacco: Never Assessed Comments Unknown Sex and Gender Information Value Date Recorded Sex Assigned at Not on file Legal Sex Female 6:28 AM SERVICE ADMINISTRATOR Gender Identity Not on file Sexual Orientation Not on file documented as of this encounter Plan of Treatment Not on file documented as of this encounter Visit Diagnoses Not on filedocumented in this encounter Additional Health Concerns Infection Onset Date Last Indicated Resolved Time MRSA Comment:Kapil 10/26/15 10/27/2015 10/27/2015 documented as of this encounter Care Teams Epic Willow Analyst Relationship Specialty Start Date End Date Jose Bowers MD [address] [place] [address] PCP - General 12/31/05 documented as of this encounter
[2024-08-29] MEDS: sodium chloride 0.9% 1,000 ML 999 ML IV ×3 (08:51→17:52)
--- NOTE | 2024-08-29 08:59 | ECG_ITS ---
Kitchensurfing Test Date: 2024-08-29 Pat Name: Jami Gandhi Department: Room: [facility] Gender: Female Ballast Inspector: : 1970 Requested By: Mendel Sorto Order Number: [id number] Reading MD: BRIAN PIMENTEL Measurements Intervals Saffell Rate: 126 P: 47 NV: 126 QRS: 49 QRSD: 94 T: 13 QT: 335 QTc: 486 Interpretive Statements SINUS TACHYCARDIA NONSPECIFIC ST & T-WAVE ABNORMALITY ABNORMAL RHYTHM ECG Compared to ECG 08/28/2024 18:13:26 T-wave abnormality now present Electronically Signed On 09-01-2024 23:41:35 COMPUTER NETWORK SPECIALIST by BRIAN PIMENTEL [email or web address]
[2024-08-29] MEDS: sodium bicarbonate 50 MEQ in sodium chloride 0.45% 1,000 ML 125 MEQ IV ×2 (09:10→16:22)
[2024-08-29] MEDS: meropenem 1,000 mg SDV 1000 MG IVP (10:05)
[2024-08-29 10:18] LABS: NT Pro B Type Natriuretic Pept 434 pg/mL (0-125)
[2024-08-29] MEDS: vasopressin 40 UNIT/100 ML PREMIX 4.5 UNIT IV (11:30)
[2024-08-29 11:38] LABS: Basophils # 0.2 10^3/uL (0.0-0.1); Basophils % 0.3 %; Eosinophils # 0.2 10^3/uL (0.0-0.8); Eosinophils % 0.4 %; Lymphocytes # 3.8 10^3/uL (0.8-4.8); Lymphocytes % 7.9 %; Mean Corpuscular Hemoglobin 31.2 pg (27-33); Mean Corpuscular Volume 103.8 fl (85-98); Mean Platelet Volume 10.6 fL (7.4-10.4); Monocytes # 5.4 10^3/uL (0.2-0.9); Monocytes % 11.4 %; Neutrophils # 36.69 10^3/uL (1.8-7.7); Neutrophils % 77.6 %; Nucleated Red Blood Cells # 0.3 /100WBC; Nucleated Red Blood Cells % 0.6 %; Platelet Count 1352 10^3/cmm (157-399); Red Cell Distribution Width 14.5 % (12.1-15.1)
--- NOTE | 2024-08-29 11:45 | XRR_ITS ---
PROCEDURE INFORMATION: Exam: XR Chest Exam date and time: 08/29/2024 12:00 PM Age: 54 years old Clinical indication: Device placement; Ett placement (vent status) TECHNIQUE: Imaging protocol: Radiologic exam of the chest. Views: 1 view. COMPARISON: CR (CHEST, ) 08/29/2024 8:52 AM FINDINGS: Tubes, catheters and devices: Endotracheal tube terminates 1.9 cm from the miguel. Right internal jugular catheter terminates within the right atrium. Consider retraction to approximately 5 cm for the tip to terminate at the cavoatrial junction. Lungs: Hypoinflation with bronchovascular crowding. No focal consolidation. Pleural spaces: No pleural effusion. No pneumothorax. Heart/Mediastinum: Prominent cardiac silhouette. Tortuous calcified aorta. Bones/joints: Degenerative change. XR/XR chest 1V portable [id number] IMPRESSION: 1. Hypoinflation with bronchovascular crowding. No focal consolidation. 2. Right internal jugular catheter terminates within the right atrium. Consider retraction to approximately 5 cm for the tip to terminate at the cavoatrial junction.
--- NOTE | 2024-08-29 11:51 | ANES.PROC ---
Anesthesia Procedures Procedure/Date: 08/29/24 Intubation: Time Out Performed: Yes Consent: requested by attending/covering physician, from patient, from other, risks and benefits reviewed and patient agrees to proceed Sedative (amount): etomidate (30 mg) Paralytic (amount): rocuronium (100 mg) Laryngoscope: fiber optic video scope (Glidescope S3) ET Tube Size: 7.5 ET Tube Uncuffed: Yes Tube Secured Depth (cm): 23 Tube Secured Location: teeth Tube Placement Confirmation: visualized tube passing through cords, equal breath sounds bilaterally, no breath sounds over epigastrium and color change noted Patient Tolerated Procedure: well Intubation Complications: none Additional Comments: Diagnosis: altered mental status
[2024-08-29 11:57] LABS: Anion Gap 25.1 (5-19); Blood Urea Nitrogen 29 mg/dL (6-20); Calcium 8.1 mg/dL (8.5-10.5); Carbon Dioxide 14 mmol/L (22-29); Chloride 98 mmol/L (98-107); Creatinine Clr Calc Pharmacy 37.3168; Glomerular Filtration Rate 23.1 mL/min (90-130); Glucose 252 mg/dL (65-115); Osmolality Calculated 288 mOsm/kg (285-295); Potassium 5.1 mmol/L (3.5-5.1); Sodium 132 mmol/L (136-145)
[2024-08-29] MEDS: nystatin powder 15 gm Btl 1 APPLIC TOPICAL ×2 (11:57→17:38)
[2024-08-29] MEDS: propofol 1,000 MG/100 ML INJ 38.51 MG IV ×4 (11:58→17:43)
[2024-08-29 12:01] LABS: Slide Review Slide Review Perform; White Blood Count 47.35 10^3/uL (3.29-11.43)
[2024-08-29] MEDS: fentaNYL 1,000 MCG/100 ML BAG 2.5 MCG IV (12:04)
[2024-08-29] MEDS: midazolam hcl 100 MG/100 ML BAG IV (12:07)
--- NOTE | 2024-08-29 12:24 | PC.NURSE ---
Addendum entered by FORREST Connors 08/29/24 17:01: Dr. Bull started Propofol at rate of 50mcg/kg/min immediately following intubation. Original Note: Event: 1145: Patient minimally responsive, Dr. Sorto at bedside ordered for intubation. See Dr. Bull intubation note. Patient intubated With a size 8 tube 24@lip, Omayra RT, this RN. No complications.
[2024-08-29 12:29] LABS: Glucose Point of Care 242 mg/dL (70-110)
[2024-08-29 12:39] LABS: Estmated Average Glucose 108; Hemoglobin A1C 5.4 % (4.0-6.0)
[2024-08-29] MEDS: pantoprazole 40 mg SDV IVP (12:40)
--- NOTE | 2024-08-29 12:48 | PM.CONSULT ---
Providers/Reason For Consult Attending Physician: Mendel Sorto MD Primary Care Provider: Jennifer Ordaz MD History of Present Illness History of Present Illness Jami Gandhi is a 54 year old female Medications/Allergies Home Medications ?Medication ?Instructions ?Recorded ?Confirmed ?Last Taken ?Type furosemide 20 mg tablet 20 mg PO BID PRN edima 04/12/20 08/28/24 06/14/24 History gabapentin 600 mg tablet 600 mg PO BEDTIME 04/12/20 08/28/24 08/17/24 History omeprazole 40 mg capsule,delayed 40 mg PO BEDTIME 04/12/20 08/28/24 08/17/24 History release potassium chloride 10 mEq 20 - 30 meq PO BEDTIME 04/12/20 08/28/24 08/17/24 History capsule,extended release venlafaxine 150 mg 150 mg PO BEDTIME 04/12/20 08/28/24 08/17/24 History capsule,extended release 24 hr ascorbic acid (vitamin C) 1,000 mg 1,000 mg PO BID 10/27/20 08/28/24 08/17/24 History tablet baclofen 20 mg tablet 20 mg PO BEDTIME 02/26/23 08/28/24 08/17/24 History trazodone 50 mg tablet 25 mg PO BEDTIME 09/24/23 08/28/24 08/17/24 History cefdinir 300 mg capsule 300 mg PO DAILY 06/15/24 08/28/24 08/17/24 History warfarin 5 mg tablet See Rx Instructions .Route .COMPLEX 06/15/24 08/28/24 08/17/24 History Held on 08/25/24. Instructions: Resume on 08/31/24. hold until you see Dr. Benson on Saturday albuterol sulfate 1.25 mg/3 mL 2.5 mg inhalation .Q4H PRN 08/18/24 08/28/24 Unknown History solution for nebulization shortness of breath or wheezing enoxaparin 150 mg/mL subcutaneous 130 mg (0.8667 mL) SUBCUT Q12H 7 08/24/24 08/28/24 Unknown Rx syringe days #12.134 mL isosorbide mononitrate 30 mg 30 mg PO DAILY 30 days #30 tabs 08/24/24 08/28/24 Unknown Rx tablet,extended release 24 hr prothrombin time/INR test metr #30 ea 08/24/24 08/28/24 Unknown Rx enoxaparin 60 mg/0.6 mL 120 mg (1.2 mL) SUBCUT Q12H 15 08/25/24 08/28/24 Unknown Rx subcutaneous syringe (Lovenox) days #36 mL Allergies Allergy/AdvReac Type Severity Reaction Status Date / Time levofloxacin (From Levaquin) Allergy Unknown Unknown Verified 08/28/24 12:42 azithromycin Allergy Unknown Verified 08/28/24 12:42 Penicillins Allergy Unknown Verified 08/28/24 12:42 tramadol (From Ultram) Allergy Unknown Verified 08/28/24 12:42 vancomycin Allergy Unknown Verified 08/28/24 12:42 amoxicillin AdvReac Unknown ADR-Seizure Verified 08/28/24 12:42 Current Medications Generic Name Dose Route Start Last Admin Trade Name Freq PRN Reason Stop Dose Admin Linezolid 600 mg in 300 mls @ 300 mls/hr 08/28/24 18:45 08/29/24 08:16 Zyvox Premix IV Infused Q12H CARLOS Infusion Protocol Norepinephrine Bitartrate 4 mg in 250 mls @ 0 mls/hr 08/29/24 01:00 08/29/24 12:17 Levophed IV 6 mcg/min .Q0M CARLOS 22.5 mls/hr Titration Protocol Per Protocol Sodium Bicarbonate 50 meq/ 1,050 mls @ 125 mls/hr 08/29/24 08:30 08/29/24 09:10 Sodium Chloride IV 125 mls/hr .Q8H24M CARLOS Administration Vasopressin 40 unit in 100 mls @ 4.5 mls/hr 08/29/24 11:15 08/29/24 11:30 Vasostrict IV 0.03 unit/min CONT CARLOS 4.5 mls/hr Administration 0.03 UNIT/MIN Fentanyl 1,000 mcg in 100 mls @ 0 mls/hr 08/29/24 11:30 08/29/24 12:04 Sublimaze IV 25 mcg/hr .Q0M CARLOS 2.5 mls/hr Administration Protocol Per Protocol Midazolam HCl 100 mg in 100 mls @ 0 mls/hr 08/29/24 11:30 08/29/24 12:07 Versed IV 1 mg/hr .Q0M CARLOS 1 mls/hr Administration Protocol Per Protocol Propofol 1,000 mg in 100 mls @ 0 mls/hr 08/29/24 11:30 08/29/24 11:58 Diprivan IV 50 mcg/kg/min .Q0M CARLOS 38.51 mls/hr Administration Protocol Per Protocol Meropenem 1,000 mg 08/29/24 09:00 08/29/24 10:05 Meropenem 1,000 Mg Sdv IVP 1,000 mg Q12H CARLOS Administration Protocol Nystatin 1 applic 08/29/24 09:00 08/29/24 11:57 Nystatin Powder 15 Gm Btl TOPICAL 1 applic BID CARLOS Administration Ondansetron HCl 4 mg 08/28/24 21:12 08/29/24 05:43 Ondansetron 2 Mg/Ml Sdv 2 Ml IVP 4 mg Q6H PRN Administration NAUSEA AND VOMITING Pantoprazole Sodium 40 mg 08/29/24 11:30 08/29/24 12:40 Pantoprazole 40 Mg Sdv IVP 40 mg Q12H CARLOS Administration Trazodone HCl 25 mg 08/28/24 21:12 08/28/24 22:11 Trazodone 50 Mg Tablet PO 25 mg BEDTIME CARLOS Administration Venlafaxine HCl 150 mg 08/28/24 21:30 08/28/24 22:11 Venlafaxine Er (24hr) 75 Mg Capsule PO 150 mg BEDTIME CARLOS Administration PFSH Acute PFSH: Medical History History of angiography 2015 abdominal angiography and lower extremity angiography - normal abdominal aorta, pelvic vessels normal, all lower extremity vessels unremarkable, 3 vessel runoff below both knees History of cardiovascular stress test 07/2024 abnormalities on myocardial perfusion scanning History of sleep study 05/2017 - cpap auto-titrating 15-19 Wound of sacral region goes to wound care clinic Abscess of sacrum Parastomal hernia Ventral incisional hernia GERD (gastroesophageal reflux disease) Depression Fracture of fifth toe, right, closed History of sleep apnea sleep study in 2017 recommended auto-titrating cpap 15-[address] Chronic venous insufficiency of lower extremity PVD (peripheral vascular disease) History of DVT (deep vein thrombosis) (2004) and pulmonary embolism 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 Chronic osteomyelitis Neurogenic bladder Chronic cystitis Surgical History History of carpal tunnel release History of abdominal surgery (2007) excision of pelvic cysts complicated by bowel perforation, had multiple procedures including colostomy History of inferior vena caval filter placement (2004) still in place in 08/2024 History of incision and drainage (04/2019) sacral wound History of back surgery (2004) for spinal abscess x 2 History of hysterectomy (2003) S/P cholecystectomy S/P section Suprapubic catheter (~2004) following urology in [place] Family History Family/Other Diabetes Cancer CAD (coronary artery disease) Mother , at age 74 Sepsis Cancer melanoma Diabetes Father Heart disease Other Dementia Diabetes mellitus type 1 Hypertension Stroke Social History Smoking and tobacco/nicotine status: never used tobacco/nicotine Alcohol intake: never Substance/Drug Use: never Additional social history: daughter performs dressing changes twice per day, she and other family provide assistance as needed, wheelchair dependent, able to use transfer board Caregiver/support person: Yes Lives independently: Yes Marital status: Current occupational status: disabled Vitals/I&O/Wt Last Vital Signs Temp 97.6 F 08/29/24 08:00 Pulse 127 H 08/29/24 09:58 Resp 14 08/29/24 11:53 BP 107/61 08/29/24 08:00 Pulse Ox 100 08/29/24 11:53 O2 Del Method Nasal Cannula 08/29/24 09:58 O2 Flow Rate 2 08/29/24 09:58 FiO2 100 08/29/24 11:53 08/28/24 08/29/24 08/29/24 22:59 06:59 14:59 Intake Total 350 / 350 400.000 / 698.653 5946.875 / 1587.875 Balance 350 / 350 400.000 / 522.855 0372.875 / 1587.875 Weight last 48 hrs Weight 283 lb Weight 283 lb Weight 280 lb Data 08/29/24 11:27 08/29/24 11:27 Micro: Microbiology 08/28/24 14:31 Urine Culture - Preliminary Urine,Clean Catch Gram Negative Rods 08/28/24 17:23 Blood Culture - Preliminary Blood SPECIMEN COLLECTED 08/28/24 17:20 Blood Culture - Preliminary Blood SPECIMEN COLLECTED A&P PDMP PDMP Reviewed: Not Reviewed Coding Level of Care Code Acute Code for Chg Fwd
[2024-08-29] MEDS: insulin lispro 100 unit/1 mL SUBCUT ×2 (12:52→17:41)
--- NOTE | 2024-08-29 13:01 | PC.NURSE ---
Blood administration: [id number] Given emergent. No reactions.
[2024-08-29] MEDS: etomidate 20 ML 100 MG (13:05)
[2024-08-29] MEDS: rocuronium 10 mg/mL INJ 5mL 100 MG (13:05)
--- NOTE | 2024-08-29 13:06 | PC.NURSE ---
Urinary Catheter: Order for Mahajan catheter placement from Dr. Sorto. Discussed with DrLuisa patient condition and current Urostomy in place,and flowing properly. Dr. Sorto gave verbal order to disregard catheter placement order.
[2024-08-29 13:36] LABS: Basophils # 0.1 10^3/uL (0.0-0.1); Basophils % 0.4 %; Lymphocytes # 2.4 10^3/uL (0.8-4.8); Lymphocytes % 6.3 %; Mean Corpuscular HGB Conc 32.8 g/dL (30-55); Mean Corpuscular Hemoglobin 31.4 pg (27-33); Mean Corpuscular Volume 95.7 fl (85-98); Mean Platelet Volume 10.1 fL (7.4-10.4); Monocytes % 10.7 %; Neutrophils % 80.4 %; Nucleated Red Blood Cells # 0.2 /100WBC; Nucleated Red Blood Cells % 0.5 %; Platelet Count 811 10^3/cmm (157-399); Red Blood Count 3.76 10^6/uL (3.85-5.65); Red Cell Distribution Width 14.1 % (12.1-15.1)
[2024-08-29 13:44] LABS: INR 1.17 (0.8-1.2)
[2024-08-29 13:45] LABS: Ketone (Acetest) Serum Negative (Negative)
[2024-08-29 13:50] LABS: Lactic Sepsis W/Reflex 3.5 mmol/L (0.5-2.2)
[2024-08-29 13:53] LABS: White Blood Count 37.83 10^3/uL (3.29-11.43)
--- NOTE | 2024-08-29 14:28 | P.PN_ITS ---
Subjective 2 Subjective: - Overnight events reviewed -This morning patient was seen she is al ert to person she can follow some commands, but remains grossly encephalopathic pupils equal round reactive to light -She is on 14 of Levophed, with arterial line in place, overnight events I was told patient had low blood pressures that were difficult blood pressures, arterial line in place -Orders placed for central line placemen t, anesthesia was consulted -'s MAP is around 65, pulse is in the 12 0s HR sinus rhythm, urine output has been lackluster, she alert to person, not to place, to time on 1 L, globally encephalopathic -Reviewed morning labs hemoglobin is soheila pped down to 8.2, INR/PTT/PT within normal limits, she continues to have swelling, erythema, warmth, tenderness around right groin that is extending to the right flank down to the right femur, in my opinion has enlarged in size ? ABG ordered pH 7.29, pCO2 34.3, pO2 134 -CT reviewed CT/CT abdomen pelvis w con* [id number] IMPRESSION: 1. Large right proximal thigh fluid co llection (19.6 x 18.3 x 9.1 cm, at least 1.7 L total volume) presumed predominantly due to partially liquified hematoma. Clinical correlation recommended for any suspicion of superimposed infection wedge may be indistinguishable on imaging at this time. Additional 3.1 x 2.5 cm adjacent collection/hematoma. 2. Collapsed appearance of the IVC. Co rrelation for any evidence of intravascular volume depletion and hemodynamic stability/blood loss anemia recommended. 3. Distal IVC filter is unchanged in l ocation. Other chronic and postsurgical findings detailed above. -Our imaging showed no evidence of pseud oaneurysm on venous ultrasound -Spoke to cardiology, will review images , consult -Orders placed for fluid bolus 1 L, orde r placed for 2 units of blood -Given clinical findings, I have is high ly suspicious for acute hemorrhagic shock, concern for patient bleeding further into the right groin, with concerns for septic shock multifactorial from concerns for infected hematoma of right groin, UTI, sacral decubitus ulcer -I had a detailed discussion with the marilou terrance's family yesterday about my concerns for infected hematoma, I had ordered a CT late into the evening, blood cultures, -Patient's blood pressures are respondin g to fluids, orders placed for emergency 2 units of blood, 2 units on hold -Patient was reexamined, she remains dif fusely encephalopathic on 1 L, concerns for maintaining airway -Due to concerns for acute encephalopath y, GCS score was 6-7, decision was made to intubate patient for airway protection -Patient was intubated by anesthesiology for airway protection, placed on fentanyl, propofol, for sedation -Reexamined multiple times she has recei gato her 2 units of blood, MAP is greater than 65, she has received fluid therapy started on a sodium bicarb drip -Her urine output remains lackluster cre atinine up to 2.2 -Likely patient has developed hemorrhagi c shock, with concerns for acute bleeding into the right groin overnight resulting in her hypotension -CT scan showing large right proximal th igh fluid collection 19.6 x 18.3 x 9.1 cm, with suspicion of superimposed infection which, additional 3.1 x 2.5 cm collection/hematoma -Also component of septic shock concerns for infected hematoma, UTI, sacral decubitus ulcer -Evidence of acute renal failure seconda ry to shock, sepsis, acute anemia -She is intubated for airway protection -Last dose of Lovenox was the morning of 08/28/2024 she has not taken Coumadin according to family -Blood blood cell count 37,000, -Blood cultures pending -I had detailed discussion with Dr. Vences him, recommended transfer to tertiary level center for vascular surgery intervention -Spoke to [facility] in [place], they had reviewed the images with her vascular surgeon Dr. Salazar, he had reviewed the images he had felt that there was a 3 cm pseudoaneurysm, that had thrombosed but there could be evidence of active bleeding, he recommended urgent vascular intervention however at this time [facility] does not have the staff to take care of the patient and there are vascular surgery divert so they recommended transfer to a facility that has the capability to take care of patient -Patient's Levophed requirements have de creased to 6 units/hr, she is more stabilized, intubated,sedated, her hemoglobin status post 2 units is 11, urine output is about 100 cc -Spoke to [facility], in [place], spoke to their vascular surgeon Dr. Nguyen, recommended resuscitation, stabilization, he they are willing to consult on the patient once accepted at [facility] -To [facility] airborne operations, discussed case in detail discussed concern for hemorrhagic shock, concerns for continued bleeding into right groin, possible pseudoaneurysm, requiring resuscitation fluids, blood products will need vascular surgery intervention. In addition I am worried for multifactorial septic shock from UTI, concerns for infected hematoma that will also need vascular surgery. Currently patient also has acute renal failure she will possibly require dialysis if her creatinine continues to elevate her urine output remains lackluster. Discussed her prior hospitalization for cardiac cath, no obstructive CAD. Patient has been accepted at [facility], awaiting transfer, will try Air-Evac -Multiple family meetings -Spoke to patient's family patient's lexie ghmauricio, discussed all above findings, discussed need to transfer to tertiary level center for vascular surgery intervention, they are agreeable -They voiced understanding, all question s answered -Spoke to family about transfer acceptan ce at [facility] and they are in agreement -Patient's status is critical, prognosis guarded Vitals/I&O/Wt Last Vital Signs Temp 97.6 F 08/29/24 08:00 Pulse 130 H 08/29/24 13:15 Resp 16 08/29/24 13:49 BP 97/72 08/29/24 13:15 Pulse Ox 100 08/29/24 13:49 O2 Del Method Mechanical Ventilation 08/29/24 13:00 O2 Flow Rate 1 08/29/24 11:30 FiO2 100 08/29/24 13:49 08/28/24 08/29/24 08/29/24 22:59 06:59 14:59 Intake Total 350 / 350 400.000 / 395.960 8554.125 / 2722.125 Balance 350 / 350 400.000 / 509.211 5720.125 / 2722.125 Weight last 48 hrs Weight 128.367 kg Weight 128.367 kg Weight 127.006 kg Physical Exam 2 Const: COMMON NORMALS: no acute distress EXAM LIMITATIONS: altered mental status OTHER: Intubated, sedated on mechanical ventilation Eye: COMMON NORMALS: Equal, round and reactive pupils present PUPIL: Yes Equal, round and reactive pupils present Lymph: LYMPHATIC: no lymphadenopathy noted Resp: COMMON NORMALS: normal respiratory effort, No retractions and No use of accessory muscles AUSCULTATION: wheezes Cardio: COMMON NORMALS: regular rate, regular rhythm, S1 normal heart sound present and S2 normal heart sound present RATE: regular rate RHYTHM: r egular rhythm HEART SOUNDS: S1 normal heart sound present and S2 normal heart sound present GI: OTHER: Abdomen soft, distended, diminished bowel sounds, no guarding, no rebound, rigidity : OTHER: Right groin, hematoma site, measuring 20 cm long extending from right groin to right flank, irregular borders, extending down to right thigh -With warmth, erythema, exquisite tender ness -Cath site looks swollen, erythematous, Extremity: COMMON NORMALS: no pedal edema Sepsis: Is patient septic: Yes Focused sepsis exam performed: Yes F ocused sepsis exam: DP PT pulses diminished bilaterally, mottling bilateral extremities, cap refill greater than 2 seconds Date exam was performed: 08/29/24 Time exam was performed: 09:00 Data 08/29/24 13:22 08/29/24 11:27 Micro: Microbiology 08/28/24 14:31 Urine Culture - Preliminary Urine,Clean Catch Gram Negative Rods 08/28/24 17:23 Blood Culture - Preliminary Blood SPECIMEN COLLECTED 08/28/24 17:20 Blood Culture - Preliminary Blood SPECIMEN COLLECTED A&P Assessment and plan (1) History of DVT (deep vein thrombosis): (2) BMI 50.0-59.9, adult: (3) Suprapubic catheter: (4) Neurogenic bladder: (5) Wound of sacral region: Qualifiers: Encounter type: subsequent encounter Qualified Code(s): S31.000D - Unspecified open wound of lower back and pelvis without penetration into retroperitoneum, subsequent encounter (6) 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: (7) Shock: (8) Hemorrhagic shock: (9) Acute anemia: (10) Septic shock: (11) Infected hematoma following procedure: (12) Complicated UTI (urinary tract infection): (13) Acute encephalopathy: (14) RANI (acute kidney injury): (15) Acute respiratory failure: Plan Acute encephalopathy ? Multifactorial from hemorrhagic shock, anemia, UTI, infected hematoma ? Patient was intubated for airway protection, low GCS Acute hypoxic respiratory failure -Patient was intubated for airway protection, low GCS Plan -Continue intubation, mechanical ventilation -Minimize tidal volume, FiO2 -Propofol, fentanyl for sedation Multifactorial shock -Hemorrhagic shock right groin -Septic shock, concerns for infected right groin hematoma, UTI, chronic sacral decubitus ulcer -Art line in place -Central line in place -Currently on Levophed at 6 -Weaning off vasopressin -Currently on bicarb drip Hemorrhagic shock -Right groin hematoma -Ultrasound soft tissue shows postprocedural hematoma right groin, appearance suggest this is undergoing evolution and not acute -Venous ultrasound shows no DVT right lower extremity, no pseudoaneurysm seen -CT abdomen and pelvis with IV contrast -Soft tissues: Large hematoma of the anterior/lateral proximal right thigh measuring up to 19.6 x 18.3 x 9.1 cm. The hematoma appears to be centrally liquified. Moderate overlying skin and subcutaneous edema and stranding additional adjacent 3.1 x 2.5 cm nodule versus hematoma (series 5, image 89) in the anterior proximal thigh, new from 03/18/2024. Postsurgical changes again noted in the perineum. Surgical scar in the infraumbilical anterior abdominal wall again demonstrated. -On examination right groin hematoma is enlarging, with evidence of shock overnight, concerns for acute bleeding - [facility] in [place] looked at images and was worried about a pseudoaneurysm 3 mm that had thrombosed but he was worried about the possibility of active bleeding -Spoke to and [place], recommend further resuscitation and consultation once at [facility] -Status post 2 units PRBC hemoglobin up to 13 -NR 1 0.17, PTT 15.7, PT 31.7, platelet count 811 Plan -Monitor hemoglobin closely every 4 hours -Status post 2 units PRBC -2 units on hold -Continue to monitor site closely -Will likely need vascular surgery intervention Acute anemia as above -No evidence of bloody black stools, hematemesis Septic shock -Multifactorial -Concern for infected right groin hematoma, will need to be transferred for vascular surgery intervention, will likely need drainage of hematoma -Urinary tract infection urine cultures growing gram-negative's, history of suprapubic catheter for neurogenic bladder -Sacral disturbance ulcer -Blood culture -Urine culture -On Zyvox -On meropenem Acute renal failure -Multifactorial from hemorrhagic shock, septic shock, acute anemia -Creatinine is 2.2 -On bicarb drip Sinus tachycardia Morbid obesity Sacral decubitus ulcer History of DVT and PE, IVC filter in place -Coumadin has been on hold since hospitalization August 23 -Is on therapeutic Lovenox, last dose was the morning of 08/28/2024 Full code SCDs for DVT prophylaxis Protonix for GI prophylaxis Status critical, prognosis guarded PDMP PDMP Reviewed: Not Reviewed Attestations 2 Medical Necessity Statement*: Patient requires hospitalization for hemorrhagic shock, right groin hematoma, concerns for infected hematoma, septic shock, acute renal failure, acute encephalopathy, acute respiratory failure, metabolic acidosis, lactic acidosis, UTI, sacral decubitus ulcer Coding Level of Care Code Critical Care >/= 30 minutes Critical care time (in minutes): 90 The high probability of a clinically significant, sudden or life threatening deterioration, as referenced in this documentation, required my full and direct attention, intervention and personal management. The critical care time shown is in addition to time spent performing any reported separately billable procedures and includes the following: [x] Data and vital sign review and interpretation [x ] Patient assessment, examination and intervention [x] Medication orders and management [x] Patient/Family updates as able [x] Care Coordination and Documentation. Diagnoses History of DVT (deep vein thrombosis) Z86.718 BMI 50.0-59.9, adult Z68.43 Suprapubic catheter Z93.59 Neurogenic bladder N31.9 Wound of sacral region, subsequent encounter S31.000D Encounter type: subsequent encounter 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 Shock R57.9 Hemorrhagic shock R57.8 Acute anemia D64.9 Septic shock A41.9; R65.21 Infected hematoma following procedure Complicated UTI (urinary tract infection) N39.0 Acute encephalopathy G93.40 RANI (acute kidney injury) N17.9 Acute respiratory failure J96.00
[2024-08-29 14:54] LABS: ABG PH Result 7.29 (7.35-7.45); Arterial Blood Gas Hematocrit 39.8 % (37-47); Base Excess ABG -4.5 mmol/L (-2.0-2.0); Blood Gas Operator Identificat GD; Blood Gas Sample Site Not specified; Blood Gas Sample Type Arterial; Carboxyhemoglobin 0.4 %THgb (0.4-20.1); HCO3 ABG 22.2 mmol/L (22-26); HGB O2 Sat 98.5 % (95-100); Methemoglobin 1.3 % (0.4-1.5); Oxygen Device VENT; Oxygen Saturation ABG > 99.1; PO2 FiO2 Ratio Arterial Blood 423; Potassium Level - ABG 5.1 mmol/L (3.5-5.0)
--- NOTE | 2024-08-29 14:55 | USR_ITS ---
PROCEDURE INFORMATION: Exam: US Duplex Right Lower Extremity Arteries Or Arterial Bypass Grafts Exam date and time: 08/29/2024 3:40 PM Age: 54 years old Clinical indication: Swelling (edema) of limb; Lower extremity, right; Prior surgery; Surgery date: Post-operative (0-2 days); Surgery type: Post cath; Additional info: Tata TECHNIQUE: Imaging protocol: Right Real-time duplex scan of the arteries or arterial bypass grafts of the right lower extremity with 2-D braden scale, color Doppler flow and spectral waveform analysis. Images documented and saved. COMPARISON: CT abdomen pelvis w con* [id number] 08/28/2024 7:22 PM FINDINGS: Right common femoral artery: No occlusion or significant stenosis. Normal waveform. No pseudoaneurysm in the inguinal region. Right superficial femoral artery: No occlusion or significant stenosis. Normal waveform. Right popliteal artery: No occlusion or significant stenosis. Normal waveform. Right calf/foot arteries: No occlusion or significant stenosis in the visualized arteries. Normal waveforms. Dorsalis pedis artery is patent. Other arteries: Unable to visualize right lower extremity arteries secondary to body habitus. Hypoechoic focus of the right groin without evidence of associated vascularity measuring 4 x 2 cm. Soft tissues: No hematoma or collection. US/[place] [id number] IMPRESSION: 1. Unable to visualize right lower extremity arteries secondary to body habitus. 2. Nonspecific cystic focus without evidence of associated vascularity at the right groin possibly representing smaller hematoma adjacent to the larger hematoma on previously visualized CT abdomen and pelvis.
[2024-08-29 15:14] LABS: Reflex Lactate Order REFLEX LACTIC ORDERD
--- NOTE | 2024-08-29 15:27 | PC.NURSE ---
Renee: Silver color ring with light green stone, a class ring, with patient's sister, Katt. Katt states she will give the ring to patients daughter.
--- NOTE | 2024-08-29 16:03 | PC.NURSE ---
Report called to [facility] via telephone.
[2024-08-29] MEDS: norepinephrine 4 MG/250 ML BAG 67.5 MG IV (16:59)
--- NOTE | 2024-08-29 17:17 | PM.TDS ---
Transfer Summary Providers Date of Admission: 08/28/24 18:08 Date of Discharge/Transfer: 08/29/24 Attending Provider at Admission: Mendel Sorto MD Attending Provider at Transfer: Mendel Sorto MD Primary Care Provider: Jennifer Ordaz MD Transfer Plans: Anticipated date of transfer: 08/29/24. Diagnoses at Discharge Discharge Diagnosis (1) History of DVT (deep vein thrombosis): Status: Chronic Permanent problem details: and pulmonary embolism (2) BMI 50.0-59.9, adult: Status: Chronic (3) Suprapubic catheter: Status: Chronic Permanent problem details: following urology in [place] (4) Neurogenic bladder: Status: Chronic (5) Wound of sacral region: Status: Chronic Qualifiers: Encounter type: subsequent encounter Qualified Code(s): S31.000D - Unspecified open wound of lower back and pelvis without penetration into retroperitoneum, subsequent encounter Permanent problem details: goes to wound care clinic (6) 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 problem details: 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 (7) Shock: Status: Acute (8) Hemorrhagic shock: Status: Acute (9) Acute anemia: Status: Acute (10) Septic shock: Status: Acute (11) Infected hematoma following procedure: Status: Acute (12) Complicated UTI (urinary tract infection): Status: Acute (13) Acute encephalopathy: Status: Acute (14) RANI (acute kidney injury): Status: Acute (15) Acute respiratory failure: Status: Acute Reason for Visit Reason for Visit post op (cath) complications Hospital Course Hospital Course Jami Gandhi is a 54 year old female with a past medical history of suprapubic catheter history of recurrent UTIs, 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 Currently patient is alert oriented x 3, following all commands, daughters at bedside, she tells me that since leaving the hospital she has had fatigue, malaise, chills, she started developing swelling, tenderness, erythema around her right groin, it started to enlarge and spread along her pannus down to her right lateral surface and along the right femur. Denies any chest pain, palpitations, no lightheadedness. She does report she has a chronic sacral decubitus ulcer. And also has a history of recurrent UTI Patient was admitted to [facility] for sepsis secondary to multiple sources infection concerns for right groin hematoma infection, cellulitis, suprapubic catheter with UTI, sacral decubitus ulcer, managed on broad-spectrum antibiotic therapy, anticoagulant therapy was held, monitored overnight, overnight patient had episode of shock, art line placed, placed on Levophed, moved to ICU - Overnight events reviewed -This morning patient was seen she is alert to person she can follow some commands, but remains grossly encephalopathic pupils equal round reactive to light -She is on 14 of Levophed, with arterial line in place, overnight events I was told patient had low blood pressures that were difficult blood pressures, arterial line in place -Orders placed for central line placement, anesthesia was consulted -'s MAP is around 65, pulse is in the 120s HR sinus rhythm, urine output has been lackluster, she alert to person, not to place, to time on 1 L, globally encephalopathic -Reviewed morning labs hemoglobin is dropped down to 8.2, INR/PTT/PT within normal limits, she continues to have swelling, erythema, warmth, tenderness around right groin that is extending to the right flank down to the right femur, in my opinion has enlarged in size? ABG ordered pH 7.29, pCO2 34.3, pO2 134 -CT reviewedACCESSION #: [id number] CT/CT abdomen pelvis w con* [id number] IMPRESSION: 1. Large right proximal thigh fluid collection (19.6 x 18.3 x 9.1 cm, at least 1.7 L total volume) presumed predominantly due to partially liquified hematoma. Clinical correlation recommended for any suspicion of superimposed infection wedge may be indistinguishable on imaging at this time. Additional 3.1 x 2.5 cm adjacent collection/hematoma. 2. Collapsed appearance of the IVC. Correlation for any evidence of intravascular volume depletion and hemodynamic stability/blood loss anemia recommended. 3. Distal IVC filter is unchanged in location. Other chronic and postsurgical findings detailed above. -Our imaging showed no evidence of pseudoaneurysm on venous ultrasound -Spoke to cardiology, will review images, consult -Orders placed for fluid bolus 1 L, order placed for 2 units of blood -Given clinical findings, I have is highly suspicious for acute hemorrhagic shock, concern for patient bleeding further into the right groin, with concerns for septic shock multifactorial from concerns for infected hematoma of right groin, UTI, sacral decubitus ulcer -I had a detailed discussion with the patient's family yesterday about my concerns for infected hematoma, I had ordered a CT late into the evening, blood cultures, -Patient's blood pressures are responding to fluids, orders placed for emergency 2 units of blood, 2 units on hold -Patient was reexamined, she remains diffusely encephalopathic on 1 L, concerns for maintaining airway -Due to concerns for acute encephalopathy, GCS score was 6-7, decision was made to intubate patient for airway protection -Patient was intubated by anesthesiology for airway protection, placed on fentanyl, propofol, for sedation -Reexamined multiple times she has received her 2 units of blood, MAP is greater than 65, she has received fluid therapy started on a sodium bicarb drip -Her urine output remains lackluster creatinine up to 2.2 -Likely patient has developed hemorrhagic shock, with concerns for acute bleeding into the right groin overnight resulting in her hypotension -CT scan showing large right proximal thigh fluid collection 19.6 x 18.3 x 9.1 cm, with suspicion of superimposed infection which, additional 3.1 x 2.5 cm collection/hematoma -Also component of septic shock concerns for infected hematoma, UTI, sacral decubitus ulcer -Evidence of acute renal failure secondary to shock, sepsis, acute anemia -She is intubated for airway protection -Last dose of Lovenox was the morning of 08/28/2024 she has not taken Coumadin according to family -Blood blood cell count 37,000, -Blood cultures pending -I had detailed discussion with Dr. Chavez, recommended transfer to tertiary level center for vascular surgery intervention -Spoke to [facility] in [place], they had reviewed the images with her vascular surgeon Dr. Salazar, he had reviewed the images he had felt that there was a 3 cm pseudoaneurysm, that had thrombosed but there could be evidence of active bleeding, he recommended urgent vascular intervention however at this time [facility] does not have the staff to take care of the patient and there are vascular surgery divert so they recommended transfer to a facility that has the capability to take care of patient -Patient's Levophed requirements have decreased to 6 units/hr, she is more stabilized, intubated,sedated, her hemoglobin status post 2 units is 11, urine output is about 100 cc -Spoke to [facility], in [place], spoke to their vascular surgeon Dr. Nguyen, recommended resuscitation, stabilization, he they are willing to consult on the patient once accepted at [facility] -To [facility] finger cobbler, discussed case in detail discussed concern for hemorrhagic shock, concerns for continued bleeding into right groin, possible pseudoaneurysm, requiring resuscitation fluids, blood products will need vascular surgery intervention. In addition I am worried for multifactorial septic shock from UTI, concerns for infected hematoma that will also need vascular surgery. Currently patient also has acute renal failure she will possibly require dialysis if her creatinine continues to elevate her urine output remains lackluster. Discussed her prior hospitalization for cardiac cath, no obstructive CAD. Patient has been accepted at [facility], awaiting transfer, will try Air-Evac -Multiple family meetings -Spoke to patient's family patient's daughter, discussed all above findings, discussed need to transfer to tertiary level center for vascular surgery intervention, they are agreeable -They voiced understanding, all questions answered -Spoke to family about transfer acceptance at [facility] and they are in agreement -Patient's status is critical, prognosis guarded -PATIENT WILL BE TRANSFERRED TO [facility] Physical Exam Const: COMMON NORMALS: no acute distress OTHER: INTUBATED AND SEDATED Resp: COMMON NORMALS: normal respiratory effort, No retractions, No use of accessory muscles and clear to auscultation bilaterally AUSCULTATION: clear to auscultation bilaterally Cardio: COMMON NORMALS: regular rhythm, S1 normal heart sound present and S2 normal heart sound present RATE: tachycardic RHYTHM: regular rhythm HEART SOUNDS: S1 normal heart sound present and S2 normal heart sound present GI: COMMON NORMALS: Normal to inspection, nondistended, normoactive bowel sounds present and non-tender Extremity: COMMON NORMALS: no pedal edema Psych: COMMON NORMALS: mental status grossly normal TS Data Studies Completed and Pending Pending at discharge Category Date Time Status Blood Culture Stat Lab 08/28/24 17:23 Results CBC Auto Diff [Complete Blood Count w/Auto] Q4H Lab 08/29/24 18:00 Ordered CBC Auto Diff [Complete Blood Count w/Auto] Q4H Lab 08/29/24 22:00 Ordered CBC Auto Diff [Complete Blood Count w/Auto] Q4H Lab 08/30/24 02:00 Ordered CBC Auto Diff [Complete Blood Count w/Auto] Q4H Lab 08/30/24 06:00 Ordered CBC Auto Diff [Complete Blood Count w/Auto] Q4H Lab 08/30/24 10:00 Ordered CBC Auto Diff [Complete Blood Count w/Auto] Q4H Lab 08/30/24 14:00 Ordered CBC Auto Diff [Complete Blood Count w/Auto] Q4H Lab 08/30/24 18:00 Ordered Complete Blood Count w/Auto AM LABS Lab 08/30/24 04:00 Ordered Complete Blood Count w/Auto AM LABS Lab 08/31/24 04:00 Ordered Comprehensive Metabolic Panel AM LABS Lab 08/30/24 04:00 Ordered Comprehensive Metabolic Panel AM LABS Lab 08/31/24 04:00 Ordered Lactic Acid level (Lactate) Stat Lab 08/29/24 16:26 Received Leukocyte Reduced RBC Stat Lab 08/29/24 11:27 Results Magnesium AM LABS Lab 08/30/24 04:00 Ordered Magnesium AM LABS Lab 08/31/24 04:00 Ordered Phosphorus AM LABS Lab 08/30/24 04:00 Ordered Phosphorus AM LABS Lab 08/31/24 04:00 Ordered Sputum Culture and Gram Stain Routine Lab 08/29/24 11:49 Results Type and Screen Stat Lab 08/29/24 11:27 Results Urine Culture Stat Lab 08/28/24 14:31 Results Completed Studies During Hospitalization Category Date Time Status CT abdomen pelvis w con* [id number] Stat Cat Scan 08/28/24 18:40 Completed CXRP [XR chest 1V portable [id number]] Routine Exams 08/29/24 11:45 Completed XR chest 1V portable [id number] Stat Exams 08/28/24 12:44 Completed XR chest 1V portable [id number] Stat Exams 08/29/24 08:24 [place] [id number] Stat Ultrasound 08/28/24 12:43 Completed US arterial duplex groin RT [CV arterial dup groin RT Ultrasound 08/29/24 14:55 Completed [id number]] Routine US renal BI* [id number] Routine Ultrasound 08/29/24 08:46 Completed US soft tissue and or extremity [US soft tissue/ Ultrasound 08/28/24 12:43 Completed extremity [id number]] Stat Laboratory Last Values WBC 37.83 10^3/uL (3.29-11.43) H* 08/29/24 13:22 WBC Cancelled 08/29/24 13:22 Corrected WBC Cancelled 08/29/24 13:22 RBC 3.76 10^6/uL (3.85-5.65) L 08/29/24 13:22 RBC Cancelled 08/29/24 13:22 Hgb 11.80 g/dL (11.27-16.99) D 08/29/24 13:22 Hgb Cancelled 08/29/24 13:22 Hct 36.0 % (36-47) D 08/29/24 13:22 Hct Cancelled 08/29/24 13:22 MCV 95.7 fl (85-98) D 08/29/24 13:22 MCV Cancelled 08/29/24 13:22 MCH 31.4 pg (27-33) 08/29/24 13:22 MCH Cancelled 08/29/24 13:22 MCHC 32.8 g/dL (30-55) D 08/29/24 13:22 MCHC Cancelled 08/29/24 13:22 RDW 14.1 % (12.1-15.1) 08/29/24 13:22 RDW Cancelled 08/29/24 13:22 Plt Count 811 10^3/cmm (157-399) H D 08/29/24 13:22 Plt Count Cancelled 08/29/24 13:22 MPV 10.1 fL (7.4-10.4) 08/29/24 13:22 MPV Cancelled 08/29/24 13:22 Gran % Cancelled 08/29/24 13:22 Neut % (Auto) 80.4 % 08/29/24 13:22 Neut % (Auto) Cancelled 08/29/24 13:22 Lymph % (Auto) 6.3 % 08/29/24 13:22 Lymph % (Auto) Cancelled 08/29/24 13:22 [place] % (Auto) 10.7 % 08/29/24 13:22 [place] % (Auto) Cancelled 08/29/24 13:22 Eos % (Auto) 0.0 % 08/29/24 13:22 Eos % (Auto) Cancelled 08/29/24 13:22 Baso % (Auto) 0.4 % 08/29/24 13:22 Baso % (Auto) Cancelled 08/29/24 13:22 Neut # (Auto) 30.40 10^3/uL (1.8-7.7) H 08/29/24 13:22 Neut # (Auto) Cancelled 08/29/24 13:22 Lymph # (Auto) 2.4 10^3/uL (0.8-4.8) 08/29/24 13:22 Lymph # (Auto) Cancelled 08/29/24 13:22 [place] # (Auto) 4.0 10^3/uL (0.2-0.9) H 08/29/24 13:22 [place] # (Auto) Cancelled 08/29/24 13:22 Eos # (Auto) 0.0 10^3/uL (0.0-0.8) 08/29/24 13:22 Eos # (Auto) Cancelled 08/29/24 13:22 Baso # (Auto) 0.1 10^3/uL (0.0-0.1) 08/29/24 13:22 Baso # (Auto) Cancelled 08/29/24 13:22 Absolute Gran (auto) Cancelled 08/29/24 13:22 Nucleated RBC % (auto) 0.5 % 08/29/24 13:22 Nucleated RBC % (auto) Cancelled 08/29/24 13:22 Nucleated RBCs # 0.2 /100WBC 08/29/24 13:22 Nucleated RBCs # Cancelled 08/29/24 13:22 ESR 62 mm/hr (0-15) H 08/28/24 13:09 PT 15.70 SECONDS (12.1-14.9) H 08/29/24 13:22 INR 1.17 (0.8-1.2) 08/29/24 13:22 APTT 31.7 SECONDS (23.9-36.7) 08/28/24 23:06 Specimen Type Arterial 08/29/24 14:40 Sample Site Not specified 08/29/24 14:40 ABG pH 7.29 (7.35-7.45) L 08/29/24 14:40 ABG pCO2 46.0 mmHg (35-45) H 08/29/24 14:40 ABG pO2 423.0 mmHg (80.0-100.0) H 08/29/24 14:40 ABG PO2/FiO2 Ratio 423 08/29/24 14:40 ABG HCO3 22.2 mmol/L (22-26) 08/29/24 14:40 ABG O2 Saturation > 99.1 08/29/24 14:40 ABG Base Excess -4.5 mmol/L (-2.0-2.0) L 08/29/24 14:40 Juan Test N/a 08/29/24 14:40 A-a O2 Gradient 30.0 mmHg (5-10) H 08/29/24 14:40 Hematocrit 39.8 % (37-47) 08/29/24 14:40 Hgb O2 Saturation 98.5 % (95-100) 08/29/24 14:40 Carboxyhemoglobin 0.4 %THgb (0.4-20.1) 08/29/24 14:40 Methemoglobin 1.3 % (0.4-1.5) 08/29/24 14:40 Total Hemoglobin 13.0 g/dL (12-16) 08/29/24 14:40 Sodium 136.0 mmol/L (131-143) 08/29/24 14:40 Potassium 5.1 mmol/L (3.5-5.0) H 08/29/24 14:40 Glucose 203.0 mg/dL (70-115) H 08/29/24 14:40 Ionized Calcium 1.0 mmol/L (1.1-1.4) L 08/29/24 14:40 O2 Delivery Device Vent 08/29/24 14:40 O2 Liters/Min 2.0 % 08/29/24 07:30 FiO2 100.0 % 08/29/24 14:40 Tidal Volume 0.40 08/29/24 14:40 PEEP 5.0 cmH20 08/29/24 14:40 Manager Sales ID Gd 08/29/24 14:40 Sodium 132 mmol/L (136-145) L 08/29/24 11:27 Potassium 5.1 mmol/L (3.5-5.1) 08/29/24 11:27 Chloride 98 mmol/L (98-107) 08/29/24 11:27 Carbon Dioxide 14 mmol/L (22-29) L 08/29/24 11:27 Anion Gap 25.1 (5-19) H 08/29/24 11:27 BUN 29 mg/dL (6-20) H 08/29/24 11:27 Creatinine 2.2 mg/dL (0.5-0.9) H 08/29/24 11:27 GFR Calculation 23.1 mL/min (90-130) L 08/29/24 11:27 Glucose 252 mg/dL (65-115) H 08/29/24 11:27 POC Glucose 242 mg/dL (70-110) H 08/29/24 12:26 Estimat Average Glucose 108 08/29/24 11:27 Hemoglobin A1c 5.4 % (4.0-6.0) 08/29/24 11:27 Calculated Osmolality 288 mOsm/kg (285-295) 08/29/24 11:27 Lactic Acid 3.5 mmol/L (0.5-2.2) H 08/29/24 13:22 Calcium 8.1 mg/dL (8.5-10.5) L 08/29/24 11:27 Phosphorus 5.6 mg/dL (2.5-4.5) H 08/29/24 05:50 Magnesium 1.9 mg/dL (1.7-2.3) 08/29/24 05:50 Total Bilirubin 0.3 mg/dL (0.15-1.2) 08/29/24 05:50 AST 31 U/L (0-32) 08/29/24 05:50 ALT 40 U/L (0-33) H 08/29/24 05:50 Alkaline Phosphatase 97 U/L (35-105) 08/29/24 05:50 Troponin T Baseline 10 ng/L (0-10) 08/28/24 13:09 Troponin T 120 Minute 8.62 ng/L (0-10) 08/28/24 16:32 Delta Troponin T -1.38 ABS# (0-10) L 08/28/24 16:32 Troponin T Hi Sens 6Hr 18.61 ng/L (0-10) H 08/28/24 23:06 Troponin T Hi Sens 6Hr Delta 8.61 ng/L (0-12) 08/28/24 23:06 C-Reactive Protein 60.5 mg/L (0.0-4.9) H 08/28/24 13:09 NT-Pro-B Natriuret Pep 434 pg/mL (0-125) H 08/29/24 05:50 Total Protein 6.6 g/dL (6.6-8.7) 08/29/24 05:50 Albumin 3.3 g/dL (3.5-5.2) L 08/29/24 05:50 Globulin 3.3 g/dL (1.3-4.6) 08/29/24 05:50 Procalcitonin 0.08 ng/mL (0-0.5) 08/28/24 13:09 Urine Color Dark yellow (Yellow) A 08/28/24 14:31 Urine Appearance Turbid (CLEAR) A 08/28/24 14:31 Urine pH 5.5 (5-7) 08/28/24 14:31 Ur Specific [place] 1.034 (1.005-1.030) H 08/28/24 14:31 Urine Protein 1+ (Negative) A 08/28/24 14:31 Urine Glucose (UA) Negative (Normal) 08/28/24 14:31 Urine Ketones Trace (Negative) 08/28/24 14:31 Urine Blood Non-haemolysed trace (Negative) 08/28/24 14:31 Urine Nitrate Positive (Negative) A 08/28/24 14:31 Urine Bilirubin Negative (Negative) 08/28/24 14:31 Urine Urobilinogen 1.0 mg/dL (Negative) 08/28/24 14:31 Ur Leukocyte Esterase 2+ (Negative) A 08/28/24 14:31 Urine RBC 10-15 /hpf (0-2) H 08/28/24 14:31 Urine WBC 10-15 /hpf (0-5) H 08/28/24 14:31 Ur Squamous Epith Cells 0-4 /hpf (0-5) H 08/28/24 14:31 Amorphous Sediment Not Reportable 08/28/24 14:31 Urine Bacteria 2+ /hpf (NONE) H 08/28/24 14:31 Hyaline Casts 0-4 /lpf H 08/28/24 14:31 Fine Granular Casts 0-4 /lpf H 08/28/24 14:31 Urine Yeast 1+ /hpf H 08/28/24 14:31 Serum Ketones Negative (Negative) 08/29/24 13:22 Influenza A (PCR) Negative (Negative) 08/28/24 14:31 Influenza Type B (PCR) Negative (Negative) 08/28/24 14:31 RSV (PCR) Negative (Negative) 08/28/24 14:31 SARS-CoV-2 (PCR) Negative (Negative) 08/28/24 14:31 Blood Type O Negative 08/29/24 11:27 Rho(D) Type Rh negative 08/29/24 11:27 Antibody Screen Negative 08/29/24 11:27 Crossmatch See Detail 08/29/24 11:27 Radiology Impressions Soft Tissue Ultrasound 08/28/24 12:43 IMPRESSION: Post procedure hematoma at the RIGHT groin. Appearance suggests this is undergoing evolution and not acute. Abdomen/Pelvis CT 08/28/24 18:40 IMPRESSION: 1. Large right proximal thigh fluid collection (19.6 x 18.3 x 9.1 cm, at least 1.7 L total volume) presumed predominantly due to partially liquified hematoma. Clinical correlation recommended for any suspicion of superimposed infection wedge may be indistinguishable on imaging at this time. Additional 3.1 x 2.5 cm adjacent collection/hematoma. 2. Collapsed appearance of the IVC. Correlation for any evidence of intravascular volume depletion and hemodynamic stability/blood loss anemia recommended. 3. Distal IVC filter is unchanged in location. Other chronic and postsurgical findings detailed above. COMMENTS: For patients with an IVC filter, recommend assessment for a management plan for the patient's IVC filter. If there is no established management plan, recommend referral to an interventional clinician on a nonemergent basis for evaluation. COMMENT: THIS REPORT CONTAINS FINDINGS THAT MAY BE CRITICAL TO PATIENT CARE. The exam findings were verbally communicated by me to Dr. Sadler via telephone conference at 8:32 PM BIOINFORMAT[employer] SPECIALIST on 08/28/2024. The findings were acknowledged and understood. Renal Ultrasound 08/29/24 08:46 IMPRESSION: Unable to visualize bilateral kidneys secondary to body habitus. Chest X-Ray 08/29/24 11:45 IMPRESSION: 1. Hypoinflation with bronchovascular crowding. No focal consolidation. 2. Right internal jugular catheter terminates within the right atrium. Consider retraction to approximately 5 cm for the tip to terminate at the cavoatrial junction. Arterial/Peripheral Duplex 08/29/24 14:55 IMPRESSION: 1. Unable to visualize right lower extremity arteries secondary to body habitus. 2. Nonspecific cystic focus without evidence of associated vascularity at the right groin possibly representing smaller hematoma adjacent to the larger hematoma on previously visualized CT abdomen and pelvis. ADDENDUM: 08/29/24 [id number] Previously noted findings are incorrect. Findings should read: Complete nonvisualization of the right lower extremity arteries secondary to body habitus. Hypoechoic focus of the right groin without evidence of associated vascularity measuring 4 x 2 cm. Recent Clincial Data Last Vital Signs Temp 95.3 F L 08/29/24 15:31 Pulse 128 H 08/29/24 14:56 Resp 16 08/29/24 15:41 BP 97/72 08/29/24 13:15 Pulse Ox 99 08/29/24 15:41 O2 Del Method Mechanical Ventilation 08/29/24 13:00 O2 Flow Rate 1 08/29/24 11:30 FiO2 40 08/29/24 15:41 Vital Signs Temp Pulse Resp BP Pulse Ox O2 Del Method O2 Del Method 08/29/24 15:41 16 99 08/29/24 15:31 95.3 F L 08/29/24 14:58 08/29/24 14:56 128 H 08/29/24 13:49 16 100 08/29/24 13:15 130 H 97/72 08/29/24 13:00 130 H 100 Mechanical Ventilation 08/29/24 12:45 131 H 100 Mechanical Ventilation 08/29/24 12:30 127 H 100 Mechanical Ventilation 08/29/24 12:15 114 H 100 Mechanical Ventilation 08/29/24 12:00 118 H 100 Mechanical Ventilation 08/29/24 11:53 14 100 08/29/24 11:45 143 H 100 Mechanical Ventilation 08/29/24 11:30 124 H 98 Nasal Cannula 08/29/24 11:15 127 H 26 H 100 Nasal Cannula 08/29/24 11:00 127 H 27 H 100 Nasal Cannula 08/29/24 10:45 128 H 29 H 08/29/24 10:30 127 H 25 H 100 Nasal Cannula 08/29/24 10:15 127 H 24 H 100 Nasal Cannula 08/29/24 10:00 125 H 23 H 100 Nasal Cannula 08/29/24 09:58 127 H 100 Nasal Cannula 08/29/24 09:45 120 H 19 H 100 Nasal Cannula 08/29/24 09:30 120 H 11 L 100 Nasal Cannula 08/29/24 09:15 124 H 26 H 100 Nasal Cannula 08/29/24 09:00 128 H 27 H 97 Nasal Cannula 08/29/24 08:45 134 H 31 H 08/29/24 08:30 132 H 33 H 08/29/24 08:15 132 H 34 H 08/29/24 08:00 128 H 26 H 08/29/24 08:00 97.6 F 120 H 13 107/61 100 08/29/24 07:45 126 H 27 H 08/29/24 07:30 125 H 9 L 08/29/24 06:45 126 H 29 H 08/29/24 06:30 129 H 29 H 08/29/24 06:15 130 H 28 H 100/66 100 08/29/24 06:00 127 H 21 H 88/58 08/29/24 06:00 123 H 08/29/24 05:45 125 H 23 H 95/58 100 08/29/24 05:30 126 H 20 H 74 L O2 Del Method O2 Flow Rate O2 Flow Rate O2 Flow Rate FiO2 08/29/24 15:41 40 08/29/24 15:31 08/29/24 14:58 40 08/29/24 14:56 08/29/24 13:49 100 08/29/24 13:15 08/29/24 13:00 08/29/24 12:45 08/29/24 12:30 08/29/24 12:15 08/29/24 12:00 08/29/24 11:53 100 08/29/24 11:45 08/29/24 11:30 1 08/29/24 11:15 1 08/29/24 11:00 1 08/29/24 10:45 08/29/24 10:30 1 08/29/24 10:15 1 08/29/24 10:00 1 08/29/24 09:58 Nasal Cannula 2 1 08/29/24 09:45 1 08/29/24 09:30 08/29/24 09:15 1 08/29/24 09:00 1 08/29/24 08:45 08/29/24 08:30 08/29/24 08:15 08/29/24 08:00 08/29/24 08:00 08/29/24 07:45 08/29/24 07:30 08/29/24 06:45 08/29/24 06:30 08/29/24 06:15 08/29/24 06:00 08/29/24 06:00 08/29/24 05:45 08/29/24 05:30 Intake & Output/Weight 08/27/24 08/28/24 08/29/24 08/30/24 06:59 06:59 06:59 06:59 Intake Total 750.000 / 084.844 0461.005 / 3803.005 Output Total 50 / 50 Balance 750.000 / 332.917 5848.005 / 3753.005 Weight 128.367 kg Vitals Last Vital Signs Temp 95.3 F L 08/29/24 15:31 Pulse 128 H 08/29/24 14:56 Resp 16 08/29/24 15:41 BP 97/72 08/29/24 13:15 Pulse Ox 99 08/29/24 15:41 O2 Del Method Mechanical Ventilation 08/29/24 13:00 O2 Flow Rate 1 08/29/24 11:30 FiO2 40 08/29/24 15:41 TS Medications Medications Acetaminophen (Acetaminophen 325 Mg Tablet) 650 mg PO Q6H PRN PRN Reason: Mild/Mod Pain Or Temp >/= 101 Glucagon (Glucagon 1 Mg/Ml Kit 1 Ml) 1 mg IM ONCE PRN; Protocol PRN Reason: Adult Acute Hypoglycemia Nursing Prot. Hydromorphone HCl (Hydromorphone Hcl 0.5 Mg/0.5 Ml Inj) 0.5 mg IVP Q4H PRN PRN Reason: PAIN Linezolid (Zyvox Premix) 600 mg in 300 mls @ 300 mls/hr IV Q12H CARLOS; Protocol Last Infusion: 08/29/24 08:16 Dose: Infused Norepinephrine Bitartrate (Levophed) 4 mg in 250 mls @ 0 mls/hr IV .Q0M CARLOS; Protocol Last Admin: 08/29/24 16:59 Dose: 18 mcg/min, 67.5 mls/hr Sodium Bicarbonate 50 meq/ (Sodium Chloride) 1,050 mls @ 125 mls/hr IV .Q8H24M [facility] Last Admin: 08/29/24 16:22 Dose: 125 mls/hr Dextrose (D5w) 500 mls @ 0 mls/hr IV ONCE PRN; Protocol PRN Reason: Adult Acute Hypoglycemia Prot Dextrose (D10w) 125 mls @ 750 mls/hr IV PRN PRN; Protocol PRN Reason: Adult Acute Hypoglycemia Nursing Protocol Dextrose (D10w) 250 mls @ 1,000 mls/hr IV PRN PRN; Protocol PRN Reason: Adult Acute Hypoglycemia Nursing Protocol Vasopressin (Vasostrict) 40 unit in 100 mls @ 4.5 mls/hr IV CONT [facility] Last Admin: 08/29/24 11:30 Dose: 0.03 unit/min, 4.5 mls/hr Fentanyl (Sublimaze) 1,000 mcg in 100 mls @ 0 mls/hr IV .Q0M [facility]; Protocol Last Admin: 08/29/24 12:04 Dose: 25 mcg/hr, 2.5 mls/hr Midazolam HCl (Versed) 100 mg in 100 mls @ 0 mls/hr IV .Q0M [facility]; Protocol Last Titration: 08/29/24 14:39 Dose: 0 mg/hr, 0 mls/hr Propofol (Diprivan) 1,000 mg in 100 mls @ 0 mls/hr IV .Q0M [facility]; Protocol Last Admin: 08/29/24 15:15 Dose: 50 mcg/kg/min, 38.51 mls/hr Insulin Human Lispro (Insulin Lispro 100 Unit/1 Ml) 0 unit SUBCUT TIDWM [facility]; Protocol Last Admin: 08/29/24 12:52 Dose: 6 unit Lanolin (Lanolin Oint 7 Gm) 1 applic TOPICAL PRN PRN PRN Reason: DRYNESS Meropenem (Meropenem 1,000 Mg Sdv) 1,000 mg IVP Q12H [facility]; Protocol Last Admin: 08/29/24 10:05 Dose: 1,000 mg Naloxone HCl (Naloxone 0.4 Mg/Ml Sdv) 0.1 mg IVP Q2M PRN PRN Reason: OPIATERV Nystatin (Nystatin Powder 15 Gm Btl) 1 applic TOPICAL BID [facility] Last Admin: 08/29/24 11:57 Dose: 1 applic Ondansetron HCl (Ondansetron 2 Mg/Ml Sdv 2 Ml) 4 mg IVP Q6H PRN PRN Reason: NAUSEA AND VOMITING Last Admin: 08/29/24 05:43 Dose: 4 mg Pantoprazole Sodium (Pantoprazole 40 Mg Sdv) 40 mg IVP Q12H [facility] Last Admin: 08/29/24 12:40 Dose: 40 mg Sodium Chloride (Sodium Chloride 0.9% 100 Ml Bag) 50 ml IV PRN PRN PRN Reason: Blood transfusion prime and flush Stop: 08/30/24 08:22 Trazodone HCl (Trazodone 50 Mg Tablet) 25 mg PO BEDTIME [facility] Last Admin: 08/28/24 22:11 Dose: 25 mg Venlafaxine HCl (Venlafaxine Er (24hr) 75 Mg Capsule) 150 mg PO BEDTIME [facility] Last Admin: 08/28/24 22:11 Dose: 150 mg Discontinued Medications Hydrocodone Bitart/Acetaminophen (Hydrocodone-Acetaminophen 5-325 Mg Tablet) 1 tab PO ONCE ONE Stop: 08/28/24 15:04 Last Admin: 08/28/24 15:17 Dose: 1 tab Ascorbic Acid (Ascorbic Acid 500 Mg Tablet) 1,000 mg PO BID [facility] Last Admin: 08/29/24 10:14 Dose: Not Given Baclofen (Baclofen 10 Mg Tablet) 20 mg PO BEDTIME [facility] Last Admin: 08/28/24 22:11 Dose: 20 mg Gabapentin (Gabapentin 300 Mg Capsule) 600 mg PO BEDTIME [facility] Last Admin: 08/28/24 22:11 Dose: 600 mg Meropenem 2,000 mg/ Sodium (Chloride) 50 mls @ 100 mls/hr IV ONCE ONE; Protocol Stop: 08/28/24 17:35 Last Infusion: 08/28/24 19:58 Dose: Infused Sodium Chloride (Sodium Chloride 0.9%) 1,000 mls @ 999 mls/hr IV .Q1H1M ONE Stop: 08/29/24 08:33 Last Infusion: 08/29/24 10:12 Dose: Infused Sodium Chloride (Sodium Chloride 0.9%) 1,000 mls @ 999 mls/hr IV .Q1H1M ONE Stop: 08/29/24 12:11 Last Infusion: 08/29/24 12:54 Dose: Infused Etomidate (Amidate) Confirm Administered Dose 20 mls @ as directed .ROUTE .STK-MED ONE Stop: 08/29/24 11:24 Last Infusion: 08/29/24 13:36 Dose: Infused Propofol (Diprivan) Confirm Administered Dose 1,000 mg in 100 mls @ as directed .ROUTE .STK-MED ONE Stop: 08/29/24 11:37 Iohexol (Iohexol 350 Mg/Ml 500 Ml Btl (Per Ml)) 0 ml IV ONCE ONE Stop: 08/28/24 19:33 Last Admin: 08/28/24 19:32 Dose: 100 ml Meropenem (Meropenem 500 Mg Sdv) 500 mg IVP Q8H [facility]; Protocol Last Admin: 08/29/24 03:48 Dose: 500 mg Pantoprazole Sodium (Pantoprazole 40 Mg Sdv) 40 mg IVP Q24H [facility] Last Admin: 08/28/24 22:11 Dose: 40 mg Rocuronium [place] (Rocuronium 10 Mg/Ml Inj 5ml) Confirm Administered Dose 100 mg .ROUTE .STK-MED ONE Stop: 08/29/24 11:24 Last Admin: 08/29/24 13:05 Dose: 100 mg Allergies levofloxacin (From Levaquin) Allergy (Unknown, Verified 08/28/24 12:42) Unknown azithromycin Allergy (Verified 08/28/24 12:42) Unknown Penicillins Allergy (Verified 08/28/24 12:42) Unknown tramadol (From Ultram) Allergy (Verified 08/28/24 12:42) Unknown vancomycin Allergy (Verified 08/28/24 12:42) Unknown amoxicillin Adverse Reaction (Unknown, Verified 08/28/24 12:42) ADR-Seizure when she was an Home Medications furosemide 20 mg tablet 20 mg PO BID PRN edima 04/12/20 [History Confirmed 08/28/24] gabapentin 600 mg tablet 600 mg PO BEDTIME 04/12/20 [History Confirmed 08/28/24] omeprazole 40 mg capsule,delayed release 40 mg PO BEDTIME 04/12/20 [History Confirmed 08/28/24] potassium chloride 10 mEq capsule,extended release 20 - 30 meq PO BEDTIME 04/12/20 [History Confirmed 08/28/24] venlafaxine 150 mg capsule,extended release 24 hr 150 mg PO BEDTIME 04/12/20 [History Confirmed 08/28/24] ascorbic acid (vitamin C) 1,000 mg tablet 1,000 mg PO BID 10/27/20 [History Confirmed 08/28/24] baclofen 20 mg tablet 20 mg PO BEDTIME 02/26/23 [History Confirmed 08/28/24] trazodone 50 mg tablet 25 mg PO BEDTIME 09/24/23 [History Confirmed 08/28/24] cefdinir 300 mg capsule 300 mg PO DAILY 06/15/24 [History Confirmed 08/28/24] warfarin 5 mg tablet See Rx Instructions .Route .COMPLEX 06/15/24 [History Confirmed 08/28/24] Held on 08/25/24. Instructions: Resume on 08/31/24. hold until you see Dr. Benson on Saturday albuterol sulfate 1.25 mg/3 mL solution for nebulization 2.5 mg inhalation .Q4H PRN shortness of breath or wheezing 08/18/24 [History Confirmed 08/28/24] enoxaparin 150 mg/mL subcutaneous syringe 130 mg (0.8667 mL) SUBCUT Q12H 7 days #12.134 mL 08/24/24 [Rx Confirmed 08/28/24] isosorbide mononitrate 30 mg tablet,extended release 24 hr 30 mg PO DAILY 30 days #30 tabs 08/24/24 [Rx Confirmed 08/28/24] prothrombin time/INR test metr #30 ea 08/24/24 [Rx Confirmed 08/28/24] enoxaparin 60 mg/0.6 mL subcutaneous syringe (Lovenox) 120 mg (1.2 mL) SUBCUT Q12H 15 days #36 mL 08/25/24 [Rx Confirmed 08/28/24] Discharge Plan Discharge Patient Disposition: Home Condition: Stable Prescriptions: No Action gabapentin 600 mg tablet 600 mg PO BEDTIME furosemide 20 mg tablet 20 mg PO BID PRN (Reason: edima) omeprazole 40 mg capsule,delayed release(DR/EC) 40 mg PO BEDTIME potassium chloride 10 mEq capsule, extended release 20 - 30 meq PO BEDTIME venlafaxine 150 mg capsule,extended release 24hr 150 mg PO BEDTIME ascorbic acid (vitamin C) 1,000 mg tablet 1,000 mg PO BID trazodone 50 mg tablet 25 mg PO BEDTIME albuterol sulfate 1.25 mg/3 mL solution for nebulization 2.5 mg inhalation .Q4H PRN (Reason: shortness of breath or wheezing) isosorbide mononitrate 30 mg Tablet Extended Release 24 Hr 30 mg PO DAILY 30 Days Qty: 30 0RF enoxaparin 150 mg/mL Syringe 130 mg SUBCUT Q12H 7 Days Qty: 12.134 0RF (DME) prothrombin time/INR test metr Misc See Rx Instructions .Route Qty: 30 0RF Rx Instructions: As directed- INR strips enoxaparin [Lovenox] 60 mg/0.6 mL syringe 120 mg SUBCUT Q12H 15 Days Qty: 36 0RF baclofen 20 mg tablet 20 mg PO BEDTIME cefdinir 300 mg capsule 300 mg PO DAILY warfarin 5 mg tablet See Rx Instructions .ROUTE .COMPLEX Rx Instructions: TAKE 1 TABLET BY MOUTH ON SATURDAY, SATURDAY, SATURDAY, SATURDAY AND SATURDAY. TAKE 1.5 TABLETS ON SATURDAY AND SATURDAY. Discharge Orders: Discharge Order (Routine); Ordered 08/29/24 Ordered By: Mendel Sorto Referrals: Jennifer Ordaz MD [Primary Care Provider] - Patient Instructions: Opioid Safety Transfer Attestations Time Spent in Transfer Care: greater than 30 min Quality Metrics Clinical Quality Measures [ No reported AMI, CVA or VTE this stay] Coding Level of Care Code Acute Code for Chg Fwd Diagnoses History of DVT (deep vein thrombosis) Z86.718 BMI 50.0-59.9, adult Z68.43 Suprapubic catheter Z93.59 Neurogenic bladder N31.9 Wound of sacral region, subsequent encounter S31.000D Encounter type: subsequent encounter 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 Shock R57.9 Hemorrhagic shock R57.8 Acute anemia D64.9 Septic shock A41.9; R65.21 Infected hematoma following procedure Complicated UTI (urinary tract infection) N39.0 Acute encephalopathy G93.40 RANI (acute kidney injury) N17.9 Acute respiratory failure J96.00
[2024-08-29 17:18] LABS: Lactic Acid level (Lactate) 3.3 mmol/L (0.5-2.2)
[2024-08-29 17:23] LABS: Glucose Point of Care 203 mg/dL (70-110)
[2024-08-29 17:53] LABS: Basophils # 0.2 10^3/uL (0.0-0.1); Basophils % 0.4 %; Eosinophils # 0.1 10^3/uL (0.0-0.8); Eosinophils % 0.2 %; Hematocrit 34.9 % (36-47); Lymphocytes # 3.9 10^3/uL (0.8-4.8); Lymphocytes % 9.3 %; Mean Corpuscular HGB Conc 33.2 g/dL (30-55); Mean Corpuscular Hemoglobin 30.4 pg (27-33); Mean Corpuscular Volume 91.6 fl (85-98); Monocytes # 5.1 10^3/uL (0.2-0.9); Monocytes % 12.4 %; Neutrophils # 31.37 10^3/uL (1.8-7.7); Neutrophils % 75.6 %; Nucleated Red Blood Cells # 0.3 /100WBC; Nucleated Red Blood Cells % 0.7 %; Platelet Count 974 10^3/cmm (157-399); Red Blood Count 3.81 10^6/uL (3.85-5.65); Red Cell Distribution Width 14.5 % (12.1-15.1)
[2024-08-29 17:56] LABS: White Blood Count 41.46 10^3/uL (3.29-11.43)
--- NOTE | 2024-08-29 19:34 | PC.NURSE ---
Patient in care of [facility] at 1933.
== END 2024-08-29 19:33 | disposition short-term general hospital (02) | DRG 871 ==
LOC: ER 17:54 → MEDSURG 23:33 → ER IP 08-29 08:47 → ICU 08-29 08:47 → MEDSURG 08-29 08:47
PROVIDERS: Internal Medicine; Admitting Provider Family Medicine; Emergency Provider Family Medicine; PCP Family Medicine; Visit Provider Family Medicine
DX: A41.9 Sepsis, unspecified organism (principal); J96.00 Acute respiratory failure, unspecified whether with hypoxia or hypercapnia; L89.153 Pressure ulcer of sacral region, stage 3; R65.21 Severe sepsis with septic shock; R57.8 Other shock; L76.32 Postprocedural hematoma of skin and subcutaneous tissue following other procedure; G82.20 Paraplegia, unspecified; G93.40 Encephalopathy, unspecified; N17.9 Acute kidney failure, unspecified; L03.90 Cellulitis, unspecified; Z68.43 Body mass index [BMI] 50.0-59.9, adult; Y84.0 Cardiac catheterization as the cause of abnormal reaction of the patient, or of later complication, without mention of misadventure at the time of the procedure; N31.9 Neuromuscular dysfunction of bladder, unspecified; D64.9 Anemia, unspecified; G47.30 Sleep apnea, unspecified; N30.90 Cystitis, unspecified without hematuria; E66.01 Morbid (severe) obesity due to excess calories; K21.9 Gastro-esophageal reflux disease without esophagitis; Z86.718 Personal history of other venous thrombosis and embolism; Z86.711 Personal history of pulmonary embolism; Z79.01 Long term (current) use of anticoagulants; Z93.6 Other artificial openings of urinary tract status; Z93.3 Colostomy status; Z87.440 Personal history of urinary (tract) infections; Z99.3 Dependence on wheelchair; Z95.828 Presence of other vascular implants and grafts
CPT/HCPCS: 36415; 36416; 36592; 71045; 74177; 76770; 76882; 80048; 80051; 80053; 81001; 82009; 82330; 82805; 82962; 83036; 83605; 83735; 83880; 84100; 84145; 84484; 85014; 85018; 85025; 85610; 85651; 85730; 86140; 86850; 86900; 86920; 87040; 87070; 87077; 87086; 87186; 87205; 87637; 93005; 93926; 93971; 94002; 94660; 94664; 94799; 96365; 96367; 96372; 96374; 96375; 96376; 99285; A4570; J1815; J2020; J2185; J2250; J2405; J2470; J2598; J2704; J3010; J3490; J7030; P9016

== ENCOUNTER 2024-09-17 19:30 | Emergency (ER) | payer MEDICARE, MEDICAID, SELFPAY ==
[2024-09-17] VITALS (8 sets, daily range): BP systolic 137–158; BP diastolic 60–77; PULSE 108–113; RESP 18; TEMP 37.4; O2SAT 94–98; BMI 50.8
--- NOTE | 2024-09-17 20:08 | CTR_ITS ---
PROCEDURE INFORMATION: Exam: CT Abdomen And Pelvis Without Contrast Exam date and time: 09/17/2024 8:22 PM Age: 54 years old Clinical indication: Abdominal tenderness; Additional info: Fistula to the surface near her ostomy leaking stool TECHNIQUE: Imaging protocol: Computed tomography of the abdomen and pelvis without contrast. Radiation optimization: All CT scans at this facility use at least one of these dose optimization techniques: automated exposure control; mA and/or kV adjustment per patient size (includes targeted exams where dose is matched to clinical indication); or iterative reconstruction. COMPARISON: CT abdomen pelvis w con* [id number] 08/28/2024 7:22 PM RADIATION DOSE METRICS: Total DLP (mGy-cm): 2120.06 FINDINGS: Tubes, catheters and devices: Suprapubic catheter appears appropriately positioned in the urinary bladder. Lungs: Visualized lung bases are clear. Liver: The liver is unremarkable. Gallbladder and biliary ducts: Status post cholecystectomy. No significant biliary ductal dilation. Pancreas: Moderate fatty atrophy of the pancreas. No pancreatic ductal dilation. Spleen: The spleen is unremarkable. Adrenal glands: The adrenal glands are unremarkable. Kidneys and ureters: Kidneys are normal. No hydronephrosis or nephrolithiasis. Stomach and bowel: Postsurgical changes of bowel. No evidence of bowel obstruction within the visualized portions of bowel. Appendix: No evidence of acute appendicitis. Intraperitoneal space: No extraluminal free air. Vasculature: IVC filter present. Lymph nodes: Calcified small subcarinal and left hilar lymph nodes. No distinct pathologically enlarged lymphadenopathy. Prominent right inguinal lymph nodes, decreased in size compared to 08/28/2024, presumed to be reactive. Urinary bladder: Urinary bladder is decompressed, poorly visualized, with suprapubic Mahajan catheter present, without large obvious abnormality Reproductive: Uterus is absent. Bones/joints: No acute osseous findings. Soft tissues: Slightly decreased size of large fluid collection located in the proximal right thigh and extending along the area of the lateral right hip soft tissues, now measuring roughly 23.1 x 14.9 x 7.6 cm. This previously measured roughly 26.3 x 15.5 x 8.2 cm when measured in similar dimensions on 08/28/2024. Large hernia involving the left abdominal wall. This may represent a very large stomal hernia. Much of the patient's bowel is located within this hernia, and part of it is located outside of the field of view. Mild diffuse muscular atrophy. There is prominent skin thickening along the ventral left lower quadrant abdominal wall, overlying the large stomal hernia (axial series 3, image 184). No distinct evidence of fluid collection on the visualized portions to suggest abscess formation. Located within this area of skin thickening (axial series 3, image 184), there is evidence of communication between a loop of bowel and the surface of the skin. This may represent the location of reported fistula. CT/CT abdomen pelvis wo con [id number] IMPRESSION: 1. Large hernia involving the left abdominal wall. This may represent a very large stomal hernia. Much of the patient's bowel is located within this hernia, and part of it is located outside of the field of view. 2. There is prominent skin thickening along the ventral left lower quadrant abdominal wall, overlying the large stomal hernia (axial series 3, image 184). No distinct evidence of fluid collection on the visualized portions to suggest abscess formation. 3. Located within this area of skin thickening (axial series 3, image 184), there is evidence of communication between a loop of bowel and the surface of the skin. This may represent the location of reported fistula. 4. No evidence of bowel obstruction. 5. Slightly decreased size of large fluid collection located in the proximal right thigh and extending along the area of the lateral right hip soft tissues, now measuring roughly 23.1 x 14.9 x 7.6 cm. This previously measured roughly 26.3 x 15.5 x 8.2 cm when measured in similar dimensions on 08/28/2024. This is presumed to represent a liquified hematoma. 6. Prominent right inguinal lymph nodes, decreased in size compared to 08/28/2024, presumed to be reactive. COMMENTS: For patients with an IVC filter, recommend assessment for a management plan for the patient's IVC filter. If there is no established management plan, recommend referral to an interventional clinician on a nonemergent basis for evaluation.
--- NOTE | 2024-09-17 20:09 | W.ED.FEMALGU ---
HPI - Female Genitourinary General: Chief complaint: Urogenital-Female Stated complaint: hole in ostomy Time Seen by Provider: 09/17/24 20:04 History of Present Illness: Patient presents to the ER with complaints of an opening near her ostomy is leaking stool. Patient said it was not there 2 days ago when they changed the ostomy bag. She has never had this before. She was just recently in this hospital and transferred to [facility] and released from their a couple days ago. And there was no note of this per the patient anytime she was in the hospital. Denies any nausea vomiting fevers chills. Related Data Home Medications ?Medication ?Instructions ?Recorded ?Confirmed furosemide 20 mg tablet 20 mg PO BID PRN edima 04/12/20 08/28/24 gabapentin 600 mg tablet 600 mg PO BEDTIME 04/12/20 08/28/24 omeprazole 40 mg capsule,delayed 40 mg PO BEDTIME 04/12/20 08/28/24 release potassium chloride 10 mEq 20 - 30 meq PO BEDTIME 04/12/20 08/28/24 capsule,extended release venlafaxine 150 mg 150 mg PO BEDTIME 04/12/20 08/28/24 capsule,extended release 24 hr ascorbic acid (vitamin C) 1,000 mg 1,000 mg PO BID 10/27/20 08/28/24 tablet baclofen 20 mg tablet 20 mg PO BEDTIME 02/26/23 08/28/24 trazodone 50 mg tablet 25 mg PO BEDTIME 09/24/23 08/28/24 cefdinir 300 mg capsule 300 mg PO DAILY 06/15/24 08/28/24 warfarin 5 mg tablet See Rx Instructions .Route .COMPLEX 06/15/24 08/28/24 Held on 08/25/24. Instructions: Resume on 08/31/24. hold until you see Dr. Benson on Saturday albuterol sulfate 1.25 mg/3 mL 2.5 mg inhalation .Q4H PRN 08/18/24 08/28/24 solution for nebulization shortness of breath or wheezing Previous Rx's ?Medication ?Instructions ?Recorded isosorbide mononitrate 30 mg 30 mg PO DAILY 30 days #30 tabs 08/24/24 tablet,extended release 24 hr prothrombin time/INR test metr #30 ea 08/24/24 Allergies Allergy/AdvReac Type Severity Reaction Status Date / Time levofloxacin (From Levaquin) Allergy Unknown Unknown Verified 08/28/24 12:42 azithromycin Allergy Unknown Verified 08/28/24 12:42 Penicillins Allergy Unknown Verified 08/28/24 12:42 tramadol (From Ultram) Allergy Unknown Verified 08/28/24 12:42 vancomycin Allergy Unknown Verified 08/28/24 12:42 amoxicillin AdvReac Unknown ADR-Seizure Verified 08/28/24 12:42 Review of Systems General: Reports: 10 or more systems reviewed and unremarkable except in HPI and below PFSH ED PFSH: Medical History History of angiography 2015 abdominal angiography and lower extremity angiography - normal abdominal aorta, pelvic vessels normal, all lower extremity vessels unremarkable, 3 vessel runoff below both knees History of cardiovascular stress test 07/2024 abnormalities on myocardial perfusion scanning History of sleep study 05/2017 - cpap auto-titrating 15-19 Wound of sacral region goes to wound care clinic Abscess of sacrum Parastomal hernia Ventral incisional hernia GERD (gastroesophageal reflux disease) Depression Fracture of fifth toe, right, closed History of sleep apnea sleep study in 2017 recommended auto-titrating cpap 15-[address] Chronic venous insufficiency of lower extremity PVD (peripheral vascular disease) History of DVT (deep vein thrombosis) (2004) and pulmonary embolism 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 Chronic osteomyelitis Neurogenic bladder Chronic cystitis Surgical History History of carpal tunnel release History of abdominal surgery (2007) excision of pelvic cysts complicated by bowel perforation, had multiple procedures including colostomy History of inferior vena caval filter placement (2004) still in place in 08/2024 History of incision and drainage (04/2019) sacral wound History of back surgery (2004) for spinal abscess x 2 History of hysterectomy (2003) S/P cholecystectomy S/P section Suprapubic catheter (~2004) following urology in [place] Family History Family/Other Diabetes Cancer CAD (coronary artery disease) Mother , at age 74 Sepsis Cancer melanoma Diabetes Father Heart disease Other Dementia Diabetes mellitus type 1 Hypertension Stroke Social History Smoking and tobacco/nicotine status: never used tobacco/nicotine Alcohol intake: never Substance/Drug Use: never Additional social history: daughter performs dressing changes twice per day, she and other family provide assistance as needed, wheelchair dependent, able to use transfer board Caregiver/support person: Yes Lives independently: Yes Marital status: Current occupational status: disabled Physical Exam Const: COMMON NORMALS: no acute distress, average body habitus, patient oriented x3, no limitations, healthy appearing, alert and well nourished Neck/C-Spine: COMMON NORMALS: no JVD Chest: COMMONS NORMALS: normal inspection of the chest and normal palpation of entire chest wall Resp: COMMON NORMALS: normal respiratory effort, No retractions, No use of accessory muscles and clear to auscultation bilaterally AUSCULTATION: clear to auscultation bilaterally Cardio: COMMON NORMALS: no JVD, regular rhythm, S1 normal heart sound present, S2 normal heart sound present, No gallops present (Cardio), No clicks present (Cardio), No murmurs present (Cardio) and No rub (Cardio); negative for regular rate (Mildly tachycardic) RATE: abnormal rate (Mildly tachycardic) RHYTHM: regular rhythm HEART SOUNDS: S1 normal heart sound present and S2 normal heart sound present GI: OTHER: Abdomen soft nondistended positive bowel sounds, there is a fistulous tract medial to her colostomy site that is leaking stool. Neuro: COMMON NORMALS: patient oriented x3 SENSORIUM/ORIENTATION: Yes alert Course Vital Signs: Vital signs: Vital Signs Temperature 99.3 F 09/17/24 19:41 Pulse Rate 113 H 09/17/24 20:02 Respiratory Rate 18 09/17/24 20:02 Blood Pressure 137/60 09/17/24 20:02 Pulse Oximetry 97 09/17/24 20:02 Oxygen Delivery Me thod Room Air 09/17/24 19:41 MDM - Female Medical Decision Making Discussed this case with the apartment coordinator, she discussed this case with Dr. Donovan and she said Dr. Donovan accept the patient in transfer. Medical Records I reviewed the patient's medical records. Lab Data I reviewed the patient's lab results. All radiology interpretation(s) finalized by discharge Discharge Plan Discharge Patient Disposition: Xfer Short-Term Hosp Clinical Impression: Colostomy in place, Colonic fistula Condition: Stable Prescriptions: No Action gabapentin 600 mg tablet 600 mg PO BEDTIME furosemide 20 mg tablet 20 mg PO BID PRN (Reason: edima) omeprazole 40 mg capsule,delayed release(DR/EC) 40 mg PO BEDTIME potassium chloride 10 mEq capsule, extended release 20 - 30 meq PO BEDTIME venlafaxine 150 mg capsule,extended release 24hr 150 mg PO BEDTIME ascorbic acid (vitamin C) 1,000 mg tablet 1,000 mg PO BID trazodone 50 mg tablet 25 mg PO BEDTIME albuterol sulfate 1.25 mg/3 mL solution for nebulization 2.5 mg inhalation .Q4H PRN (Reason: shortness of breath or wheezing) isosorbide mononitrate 30 mg Tablet Extended Release 24 Hr 30 mg PO DAILY 30 Days Qty: 30 0RF (DME) prothrombin time/INR test metr Misc See Rx Instructions .Route Qty: 30 0RF Rx Instructions: As directed- INR strips baclofen 20 mg tablet 20 mg PO BEDTIME cefdinir 300 mg capsule 300 mg PO DAILY warfarin 5 mg tablet See Rx Instructions .ROUTE .COMPLEX Rx Instructions: TAKE 1 TABLET BY MOUTH ON SATURDAY, SATURDAY, SATURDAY, SATURDAY AND SATURDAY. TAKE 1.5 TABLETS ON SATURDAY AND SATURDAY. 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
== END 2024-09-17 22:43 | disposition short-term general hospital (02) ==
PROVIDERS: Emergency Provider Emergency Medicine; PCP Family Medicine
DX: K94.09 Other complications of colostomy (principal); Z79.01 Long term (current) use of anticoagulants
CPT/HCPCS: 74176; 99284

== ENCOUNTER 2024-09-30 13:43 | Inpatient (IN) | payer MEDICARE, MEDICAID, SELFPAY ==
[2024-09-30] VITALS (76 sets, daily range): BP systolic 81–142; BP diastolic 44–123; PULSE 107–130; RESP 15–38; TEMP 36.6–37.7; O2SAT 91–100; BMI 46.4
--- NOTE | 2024-09-30 14:05 | W.ED.GENADLT ---
HPI - General Adult General: Chief complaint: Abdominal Pain Stated complaint: poss infection Time Seen by Provider: 09/30/24 13:50 History of Present Illness: 54-year-old female presents emergency room with complaint of abdominal pain redness swelling and irritation around her ostomy in her left lower quadrant. She is generally not felt well she had a low-grade fever. She has had continuous very loose output from the ostomy. She denies any blood from the ostomy. She is on Xarelto. No chest pain. She is chronically on 2 L by nasal cannula. Patient had a colostomy done in the left lower quadrant she has a little bit of a difficult time conveying precise details. Patient was transferred out due to complications with her colostomy there is recently a concern for colonic fistula and she was transferred to [place] on September 17. 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 Additionally in early August she had a angiogram that led to a pseudoaneurysm with a large leak she has a persistent fluid collection in the right anterior thigh she has had this [place] for that as well. Associated symptoms: Deny chest pain or dyspnea Related Data Home Medications ?Medication ?Instructions ?Recorded ?Confirmed furosemide 20 mg tablet 20 mg PO BID PRN edima 04/12/20 09/30/24 gabapentin 600 mg tablet 600 mg PO BEDTIME 04/12/20 09/30/24 potassium chloride 10 mEq 20 meq PO BEDTIME 04/12/20 09/30/24 capsule,extended release venlafaxine 150 mg 150 mg PO BEDTIME 04/12/20 09/30/24 capsule,extended release 24 hr ascorbic acid (vitamin C) 1,000 mg 1,000 mg PO BID 10/27/20 09/30/24 tablet baclofen 20 mg tablet 20 mg PO BEDTIME 02/26/23 09/30/24 trazodone 50 mg tablet 25 mg PO BEDTIME 09/24/23 09/30/24 cefdinir 300 mg capsule 300 mg PO DAILY 06/15/24 09/30/24 albuterol sulfate 1.25 mg/3 mL 2.5 mg inhalation .Q4H PRN 08/18/24 09/30/24 solution for nebulization shortness of breath or wheezing hydrocodone 5 mg-acetaminophen 325 1 tab PO Q4H PRN Pain 09/30/24 09/30/24 mg tablet metoclopramide HCl 10 mg tablet 10 mg PO Q8H 09/30/24 09/30/24 ondansetron 8 mg disintegrating 8 mg PO TID PRN Nausea And Vomiting 09/30/24 09/30/24 tablet rivaroxaban 20 mg tablet (Xarelto) 20 mg PO QPM 09/30/24 09/30/24 Previous Rx's ?Medication ?Instructions ?Recorded prothrombin time/INR test metr #30 ea 08/24/24 Allergies Allergy/AdvReac Type Severity Reaction Status Date / Time levofloxacin (From Levaquin) Allergy Unknown Unknown Verified 09/30/24 14:06 azithromycin Allergy Unknown Verified 09/30/24 14:06 Penicillins Allergy Unknown Verified 09/30/24 14:06 tramadol (From Ultram) Allergy Unknown Verified 09/30/24 14:06 vancomycin Allergy Unknown Verified 09/30/24 14:06 amoxicillin AdvReac Unknown ADR-Seizure Verified 09/30/24 14:06 Review of Systems Const: Denies: fever(s) or chills Card: Denies: chest pain Resp: Denies: dyspnea GI: Reports: abdominal pain : Denies: dysuria, urinary frequency or urinary urgency Musc: Denies: neck pain or back pain Skin/Breast: Reports: erythema, skin pain, skin tenderness, skin swelling, new lesions, changing lesions and changes in skin color PFSH ED PFSH: Medical History (Updated 10/01/24 @ 06:24 by Gerson Waldron DO) History of angiography 2015 abdominal angiography and lower extremity angiography - normal abdominal aorta, pelvic vessels normal, all lower extremity vessels unremarkable, 3 vessel runoff below both knees History of cardiovascular stress test 07/2024 abnormalities on myocardial perfusion scanning History of sleep study 05/2017 - cpap auto-titrating 15-19 Wound of sacral region goes to wound care clinic Abscess of sacrum Parastomal hernia Ventral incisional hernia GERD (gastroesophageal reflux disease) Depression Fracture of fifth toe, right, closed History of sleep apnea sleep study in 2017 recommended auto-titrating cpap 15-[address] Complications of surgery for ovarian cyst around 2004 resulting in bowel injury Chronic venous insufficiency of lower extremity PVD (peripheral vascular disease) History of DVT (deep vein thrombosis) (2004) and pulmonary embolism 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 Chronic osteomyelitis Neurogenic bladder Chronic cystitis Surgical History (Updated 10/01/24 @ 06:19 by Gerson Waldron DO) History of carpal tunnel release History of abdominal surgery (2007) excision of pelvic cysts complicated by bowel perforation, had multiple procedures including colostomy History of inferior vena caval filter placement (2004) still in place in 08/2024 History of incision and drainage (04/2019) sacral wound History of back surgery (2004) for spinal abscess x 2 History of hysterectomy (2003) S/P cholecystectomy S/P section Suprapubic catheter (~2004) following urology in [place] Family History Family/Other Diabetes Cancer CAD (coronary artery disease) Mother , at age 74 Sepsis Cancer melanoma Diabetes Father Heart disease Other Dementia Diabetes mellitus type 1 Hypertension Stroke Social History Smoking and tobacco/nicotine status: never used tobacco/nicotine Alcohol intake: never Substance/Drug Use: never Additional social history: daughter performs dressing changes twice per day, she and other family provide assistance as needed, wheelchair dependent, able to use transfer board Caregiver/support person: Yes Lives independently: Yes Marital status: Current occupational status: disabled Physical Exam Const: GENERAL APPEARANCE: cooperative ORIENTATION/CONSCIOUSNESS: Yes awake, Yes oriented to person, Yes oriented to place and Yes oriented to time HENMT: COMMON NORMALS: normocephalic, atraumatic and hearing grossly normal bilaterally HEAD & SCALP: normocephalic and atraumatic Resp: COMMON NORMALS: normal respiratory effort, No retractions and No use of accessory muscles AUSCULTATION: crackles Cardio: COMMON NORMALS: regular rhythm and No murmurs present (Cardio) RATE: tachycardic RHYTHM: regular rhythm GI: INSPECTION: Yes abdominal distension and Yes central obesity AUSCULTATION: Yes Hypoactive bowel sounds present PALPATION: Yes Tenderness to palpation present (GI) and Yes Hernia present (Large stomal hernia) OTHER: Examination the abdomen abdominal wall there is an obviously large stomal hernia with necrotic tissue lateral to the s ostomy itself. There is localized redness and erythema slight induration no active drainage. The necrotic tissue has a solid eschar over top it it is not actively draining at this time. Necrotic areas roughly 3 x 4 inches irregular. It is located just about 6 to 8 inches lateral from the stoma itself. : EXTERNAL FEMALE EXAM: Yes Hernia present (Large stomal hernia) Extremity: GENERAL: Yes edema Neuro: SENSORIUM/ORIENTATION: Yes oriented to person, Yes oriented to place and Yes oriented to time Skin: OTHER: Area of necrotizing fasciitis as described above. Patient also has a stage IV sacral ulcer this has been chronic with chronic osteomyelitis Procedures Central Line Placement Right IJ: Time Out Performed: Yes Patient Placed on Monitor/Pulse Ox: Yes MD Prep: mask, gown and gloves Central Line Prep: Chlorhexidine scrub Local Anesthetic: lidocaine 1% Amount of anesthesia used (mL): 2 Ultrasound Used for Placement: Yes Additional Comments: IJ extremely flat on ultrasound improved with inspiration. Initially was able to cannulate the vessel with the needle and advanced the wire however could not get the central line to advance over the wire into the vessel. After multiple attempts abandon the attempt on the right side in place central line on the left IJ. Left IJ: Time Out Performed: Yes Patient Placed on Monitor/Pulse Ox: Yes MD Prep: mask, gown and gloves Central Line Prep: Chlorhexidine scrub Local Anesthetic: lidocaine 1% and with epi Amount of anesthesia used (mL): 5 Ultrasound Used for Placement: Yes Central Line Lumen Inserted: triple Post Procedure: sutured in place, good blood return, all ports aspirated, flushed, capped and sterile dressing applied Post Procedure X-Ray: tip of catheter in good position and no pneumothorax seen Patient Tolerated Procedure: well Complications: none Course Vital Signs: Vital signs: Vital Signs Temperature 99.8 F H 10/01/24 02:17 Pulse Rate 112 H 10/01/24 02:17 Respiratory Rate 16 10/01/24 02:17 Blood Pressure 108/54 10/01/24 02:17 Pulse Oximetry 98 10/01/24 02:17 Oxygen Delivery Me thod Mechanical Ventil ation 10/01/24 00:45 Oxygen Flow Rate 2 09/30/24 14:50 Fraction of Inspir ed Oxygen 40 10/01/24 00:29 MDM - General Adult Medical Decision Making with ideal body weight sepsis fluid bolus of 30 mg/kg was 1572 mL she was given 2 L. Because of her obesity the actual body weight 30 mL/kg fluid bolus was over 3600 mL. It was felt clinically better to do the 2 L initially in the ER. Balance can be given over the next 24 hours based on her electrolytes and needs. CT shows a large area of air-fluid levels under the skin concerning for necrotizing fasciitis. We contacted [facility] where she has been previously the on-call physician is actually familiar with her they are willing to take her back however due to capacity they cannot accept her on transfer at this time they did advise us that if we called back later they would be willing to reevaluate her bed status. Biggest concern is I do not have an ICU for her to go to after the surgery. We then called [facility] in [place] they have similar issues with capacity. We contacted [facility] they are colorectal surgeon is willing to accept patient on transfer however they did not know when they would have a bed available. We consulted Dr. Flores who is on-call ultimately we decided to go ahead and take her to surgery for source control and this infection before it spread any further. Prior to leaving surgery central line was placed anticipating patient may need Levophed. Blood pressure transiently improved a line was placed due to Trendelenburg position the procedure was completed blood pressure dropped down to 70 systolic. Patient is being brought to the OR Levophed will be initiated there. I have discussed case with Dr. Rivas for hospitalist service as well as with Dr. Flores. Medical Records I reviewed the patient's medical records. Lab Data I reviewed the patient's lab results. 09/30/24 14:35 09/30/24 18:00 Radiology Impressions Abdomen/Pelvis CT 09/30/24 14:39 IMPRESSION: 1. Large ventral hernia along the left anterior lateral abdominal wall. Partially visualized fluid air subcutaneous tissues with skin thickening overlying the hernia. Correlate with clinical history as this could reflect cellulitis and abscess or sequela of recent surgery if applicable. This could also reflect patient's reported history of ostomy as it is not fully visualized on exam. 2. Partially visualized large fluid collection along the anterolateral proximal right upper extremity. COMMENTS: For patients with an IVC filter, recommend assessment for a management plan for the patient's IVC filter. If there is no established management plan, recommend referral to an interventional clinician on a nonemergent basis for evaluation. Chest X-Ray 09/30/24 21:27 IMPRESSION: 1. The ETT is positioned 3.2 cm above the miguel. 2. The NG tube tracks into the stomach with its tip in the proximal stomach and its side-hole in the distal esophagus. Consider advancing 8 cm for more optimal positioning. Laboratory Results WBC 29.42 10^3/uL (3.29-11.43) H 09/30/24 14:35 RBC 4.42 10^6/uL (3.85-5.65) 09/30/24 14:35 Hgb 12.80 g/dL (11.27-16.99) 09/30/24 14:35 Hct 42.0 % (36-47) 09/30/24 14:35 MCV 95.0 fl (85-98) 09/30/24 14:35 MCH 29.0 pg (27-33) 09/30/24 14:35 MCHC 30.5 g/dL (30-55) 09/30/24 14:35 RDW 17.2 % (12.1-15.1) H 09/30/24 14:35 Plt Count 1388 10^3/cmm (157-399) H 09/30/24 14:35 MPV 9.9 fL (7.4-10.4) 09/30/24 14:35 Neut % (Auto) 85.4 % 09/30/24 14:35 Lymph % (Auto) 5.0 % 09/30/24 14:35 [place] % (Auto) 6.1 % 09/30/24 14:35 Eos % (Auto) 0.5 % 09/30/24 14:35 Baso % (Auto) 0.7 % 09/30/24 14:35 Neut # (Auto) 25.16 10^3/uL (1.8-7.7) H 09/30/24 14:35 Lymph # (Auto) 1.5 10^3/uL (0.8-4.8) 09/30/24 14:35 [place] # (Auto) 1.8 10^3/uL (0.2-0.9) H 09/30/24 14:35 Eos # (Auto) 0.1 10^3/uL (0.0-0.8) 09/30/24 14:35 Baso # (Auto) 0.2 10^3/uL (0.0-0.1) H 09/30/24 14:35 Nucleated RBC % (auto) 0 % 09/30/24 14:35 Nucleated RBCs # 0.0 /100WBC 09/30/24 14:35 Sodium 126 mmol/L (136-145) L 09/30/24 18:00 Potassium 4.7 mmol/L (3.5-5.1) 09/30/24 18:00 Chloride 91 mmol/L (98-107) L 09/30/24 18:00 Carbon Dioxide 26 mmol/L (22-29) 09/30/24 18:00 Anion Gap 13.7 (5-19) 09/30/24 18:00 BUN 39 mg/dL (6-20) H 09/30/24 18:00 Creatinine 0.6 mg/dL (0.5-0.9) 09/30/24 18:00 GFR Calculation 103.4 mL/min (90-130) 09/30/24 18:00 Glucose 160 mg/dL (65-115) H 09/30/24 18:00 Calculated Osmolality 275 mOsm/kg (285-295) L 09/30/24 18:00 Lactic Acid 2.6 mmol/L (0.5-2.2) H 09/30/24 14:35 Lactic Acid (Sepsis) 2.0 mmol/L (0.5-2.2) 09/30/24 17:44 Calcium 7.8 mg/dL (8.5-10.5) L 09/30/24 18:00 Magnesium 1.9 mg/dL (1.7-2.3) 09/30/24 18:00 Total Bilirubin 0.9 mg/dL (0.15-1.2) 09/30/24 14:35 AST 30 U/L (0-32) 09/30/24 14:35 ALT 33 U/L (0-33) 09/30/24 14:35 Alkaline Phosphatase 392 U/L (35-105) H 09/30/24 14:35 Total Protein 8.1 g/dL (6.6-8.7) 09/30/24 14:35 Albumin 2.5 g/dL (3.5-5.2) L 09/30/24 14:35 Globulin 5.6 g/dL (1.3-4.6) H 09/30/24 14:35 Lipase 53 U/L (13-60) 09/30/24 14:35 Procalcitonin 0.48 ng/mL (0-0.5) 09/30/24 18:00 Urine Color Dark yellow (Yellow) A 09/30/24 15:20 Urine Appearance Turbid (CLEAR) A 09/30/24 15:20 Urine pH 5.0 (5-7) 09/30/24 15:20 Ur Specific [place] 1.035 (1.005-1.030) H 09/30/24 15:20 Urine Protein 2+ (Negative) A 09/30/24 15:20 Urine Glucose (UA) Negative (Normal) 09/30/24 15:20 Urine Ketones Negative (Negative) 09/30/24 15:20 Urine Blood 3+ (Negative) A 09/30/24 15:20 Urine Nitrate Positive (Negative) A 09/30/24 15:20 Urine Bilirubin 1+ (Negative) H 09/30/24 15:20 Urine Urobilinogen 1.0 mg/dL (Negative) 09/30/24 15:20 Ur Leukocyte Esterase 3+ (Negative) A 09/30/24 15:20 Urine RBC 21-50 /hpf (0-2) H 09/30/24 15:20 Urine WBC >100 /hpf (0-5) H 09/30/24 15:20 Ur Squamous Epith Cells >100 /hpf (0-5) H 09/30/24 15:20 Amorphous Sediment Not Reportable 09/30/24 15:20 Urine Bacteria Exceeds /hpf (NONE) 09/30/24 15:20 Hyaline Casts 9.10 /lpf 09/30/24 15:20 All radiology interpretation(s) finalized by discharge Critical Care Time Critical Care Time: Critical Care Time: Yes Total Critical Care Time: 150 Attestation: The high probability of a clinically significant, sudden or life threatening deterioration of the patient's cardiovascular respiratory GI Derm system(s) required my full and direct attention, intervention and personal management. The critical care time is as shown. This time is in addition to time spent performing any reported procedures but includes the following: [x] Data and vital sign review and interpretation [x] Patient assessment, examination and intervention [x] Documentation [x] Medication orders and management Discharge Plan Discharge Patient Disposition: Admitted As Inpatient Admit Provider: Miguel Flores Clinical Impression: Necrotizing fasciitis, Parastomal hernia, Suprapubic catheter, Chronic anticoagulation, BMI 50.0-59.9, adult, SAVAGE on CPAP, Sepsis, Hematoma of right inguinal region, Septic shock, Complicated UTI (urinary tract infection) Wound of sacral region Qualifiers: Encounter type: subsequent encounter Qualified Code(s): S31.000D - Unspecified open wound of lower back and pelvis without penetration into retroperitoneum, subsequent encounter Condition: Stable Coding Level of Care Code ED [employer]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
--- NOTE | 2024-09-30 14:39 | CTR_ITS ---
PROCEDURE INFORMATION: Exam: CT Abdomen And Pelvis With Contrast Exam date and time: 09/30/2024 2:57 PM Age: 54 years old Clinical indication: Abdominal pain; Generalized; Prior surgery; Surgery date: 6+ months; Surgery type: Gb. Ivc, hyst, ostomy, ; Additional info: Abd pain TECHNIQUE: Imaging protocol: Computed tomography of the abdomen and pelvis with contrast. Radiation optimization: All CT scans at this facility use at least one of these dose optimization techniques: automated exposure control; mA and/or kV adjustment per patient size (includes targeted exams where dose is matched to clinical indication); or iterative reconstruction. Contrast material: OMNIPAQUE 350; Contrast volume: 100 ml; Contrast route: INTRAVENOUS (IV); COMPARISON: CT abdomen pelvis wo con [id number] 09/17/2024 8:22 PM RADIATION DOSE METRICS: Total DLP (mGy-cm): 1123.85 FINDINGS: Liver: Normal. No mass. Gallbladder and biliary ducts: Cholecystectomy. No ductal dilation. Pancreas: Normal. No ductal dilation. Spleen: Normal. No splenomegaly. Adrenal glands: Normal. No mass. Kidneys and ureters: Normal. No hydronephrosis. Stomach and bowel: Unremarkable. No obstruction. No mucosal thickening. Appendix: No evidence of appendicitis. Intraperitoneal space: Unremarkable. No free air. No significant fluid collection. Vasculature: IVC filter noted. Lymph nodes: Unremarkable. No enlarged lymph nodes. Urinary bladder: Suprapubic catheter in place within the bladder which is decompressed. Reproductive: Hysterectomy. Bones/joints: No acute fracture. Soft tissues: There is a large ventral hernia along the left anterolateral abdominal wall containing multiple loops of small bowel and colon. Partially visualized fluid and air noted within subcutaneous soft tissues overlying the hernia with skin thickening. Partially visualized large fluid collection along the anterolateral proximal right upper extremity. CT/CT abdomen pelvis w con* [id number] IMPRESSION: 1. Large ventral hernia along the left anterior lateral abdominal wall. Partially visualized fluid air subcutaneous tissues with skin thickening overlying the hernia. Correlate with clinical history as this could reflect cellulitis and abscess or sequela of recent surgery if applicable. This could also reflect patient's reported history of ostomy as it is not fully visualized on exam. 2. Partially visualized large fluid collection along the anterolateral proximal right upper extremity. COMMENTS: For patients with an IVC filter, recommend assessment for a management plan for the patient's IVC filter. If there is no established management plan, recommend referral to an interventional clinician on a nonemergent basis for evaluation.
[2024-09-30 14:55] LABS: Basophils # 0.2 10^3/uL (0.0-0.1); Basophils % 0.7 %; Eosinophils # 0.1 10^3/uL (0.0-0.8); Eosinophils % 0.5 %; Lymphocytes # 1.5 10^3/uL (0.8-4.8); Mean Corpuscular HGB Conc 30.5 g/dL (30-55); Mean Platelet Volume 9.9 fL (7.4-10.4); Monocytes # 1.8 10^3/uL (0.2-0.9); Monocytes % 6.1 %; Neutrophils # 25.16 10^3/uL (1.8-7.7); Neutrophils % 85.4 %; Nucleated Red Blood Cells % 0 %; Platelet Count 1388 10^3/cmm (157-399); Red Blood Count 4.42 10^6/uL (3.85-5.65); Red Cell Distribution Width 17.2 % (12.1-15.1); White Blood Count 29.42 10^3/uL (3.29-11.43)
[2024-09-30 15:00] LABS: Lactic Sepsis W/Reflex 2.6 mmol/L (0.5-2.2)
[2024-09-30 15:01] LABS: Alanine Aminotransferase 33 U/L (0-33); Albumin Level 2.5 g/dL (3.5-5.2); Alkaline Phosphatase 392 U/L (35-105); Anion Gap 16.4 (5-19); Aspartate Amino Transferase 30 U/L (0-32); Blood Urea Nitrogen 43 mg/dL (6-20); Calcium 9.1 mg/dL (8.5-10.5); Carbon Dioxide 27 mmol/L (22-29); Chloride 86 mmol/L (98-107); Globulin 5.6 g/dL (1.3-4.6); Glomerular Filtration Rate 86.6 mL/min (90-130); Glucose 122 mg/dL (65-115); Lipase 53 U/L (13-60); Osmolality Calculated 270 mOsm/kg (285-295); Potassium 5.4 mmol/L (3.5-5.1); Sodium 124 mmol/L (136-145); Total Bilirubin 0.9 mg/dL (0.15-1.2); Total Protein 8.1 g/dL (6.6-8.7)
[2024-09-30] MEDS: iohexol 350 mg/mL 500 mL Btl (per mL) IV (15:08)
[2024-09-30 15:30] LABS: Bilirubin Urine 1+ (Negative); Blood Urine 3+ (Negative); Glucose Urine UA Negative (Normal); Ketones Urine Negative (Negative); Leukocyte Esterase Urine 3+ (Negative); Nitrate Urine Positive (Negative); Protein Urine 2+ (Negative); Urine Appearance Turbid (CLEAR)
[2024-09-30 15:32] LABS: Bacteria Urine EXCEEDS /hpf; RBC Urine 21-50 /hpf (0-2); Squamous Epithelial Cell Urine >100 /hpf (0-5); WBC Urine >100 /hpf (0-5)
[2024-09-30] MEDS: cefTRIAXone 2,000 mg SDV 2000 MG IVP (15:43)
[2024-09-30] MEDS: metroNIDAZOLE IV 500 MG/100 ML PREMIX 100 MG IV (15:54)
[2024-09-30 16:14] LABS: Add Urine Microscopic? YES; Specific Gravity, Urine 1.035 (1.005-1.030); Urine Color Dark Yellow (Yellow)
[2024-09-30 16:15] LABS: UA Slide Review UA Slide Review Perf
[2024-09-30 16:16] LABS: Add Urine Culture? Yes
[2024-09-30 16:32] LABS: Reflex Lactate Order REFLEX LACTIC ORDERD
[2024-09-30] MEDS: linezolid premix 600 MG/300 ML PREMIX 300 MG IV (17:02)
--- NOTE | 2024-09-30 17:43 | PM.CONSULT ---
Providers/Reason For Consult Consulting Physician/Specialty*: Dr. Flores general surgery Reason for Consult*: Necrotizing fasciitis Primary Care Provider: Marcus Benson MD History of Present Illness History of Present Illness Jami Gandhi is a 54 year old female with a complicated medical and surgical history who presents with necrotizing fasciitis of the left flank. Patient had a ovarian cyst resection about 20 years ago that was complicated by bowel injury. This resulted in a long hospital stay and multiple surgeries. About 10 years after patient developed a colocutaneous fistula which has been managed conservatively. Patient has not been found to be a surgical candidate for takedown of this fistula given that she has a large ventral hernia with loss of domain and is morbidly obese among other comorbidities. Patient presents today with fevers and necrotizing fasciitis of the left flank close to the fistula. Medications/Allergies Home Medications ?Medication ?Instructions ?Recorded ?Confirmed ?Last Taken ?Type furosemide 20 mg tablet 20 mg PO BID PRN edima 04/12/20 09/30/24 09/30/24 History gabapentin 600 mg tablet 600 mg PO BEDTIME 04/12/20 09/30/24 09/29/24 History potassium chloride 10 mEq 20 meq PO BEDTIME 04/12/20 09/30/24 09/29/24 History capsule,extended release venlafaxine 150 mg 150 mg PO BEDTIME 04/12/20 09/30/24 09/29/24 History capsule,extended release 24 hr ascorbic acid (vitamin C) 1,000 mg 1,000 mg PO BID 10/27/20 09/30/24 09/30/24 History tablet baclofen 20 mg tablet 20 mg PO BEDTIME 02/26/23 09/30/24 09/29/24 History trazodone 50 mg tablet 25 mg PO BEDTIME 09/24/23 09/30/24 09/29/24 History cefdinir 300 mg capsule 300 mg PO DAILY 06/15/24 09/30/24 09/29/24 History albuterol sulfate 1.25 mg/3 mL 2.5 mg inhalation .Q4H PRN 08/18/24 09/30/24 Unknown History solution for nebulization shortness of breath or wheezing prothrombin time/INR test metr #30 ea 08/24/24 09/30/24 Unknown Rx hydrocodone 5 mg-acetaminophen 325 1 tab PO Q4H PRN Pain 09/30/24 09/30/24 Unknown History mg tablet metoclopramide HCl 10 mg tablet 10 mg PO Q8H 09/30/24 09/30/24 09/30/24 History ondansetron 8 mg disintegrating 8 mg PO TID PRN Nausea And Vomiting 09/30/24 09/30/24 Unknown History tablet rivaroxaban 20 mg tablet (Xarelto) 20 mg PO QPM 09/30/24 09/30/24 09/29/24 History Allergies Allergy/AdvReac Type Severity Reaction Status Date / Time levofloxacin (From Levaquin) Allergy Unknown Unknown Verified 09/30/24 14:06 azithromycin Allergy Unknown Verified 09/30/24 14:06 Penicillins Allergy Unknown Verified 09/30/24 14:06 tramadol (From Ultram) Allergy Unknown Verified 09/30/24 14:06 vancomycin Allergy Unknown Verified 09/30/24 14:06 amoxicillin AdvReac Unknown ADR-Seizure Verified 09/30/24 14:06 PFSH Acute PFSH: Medical History History of angiography 2015 abdominal angiography and lower extremity angiography - normal abdominal aorta, pelvic vessels normal, all lower extremity vessels unremarkable, 3 vessel runoff below both knees History of cardiovascular stress test 07/2024 abnormalities on myocardial perfusion scanning History of sleep study 05/2017 - cpap auto-titrating 15-19 Wound of sacral region goes to wound care clinic Abscess of sacrum Parastomal hernia Ventral incisional hernia GERD (gastroesophageal reflux disease) Depression Fracture of fifth toe, right, closed History of sleep apnea sleep study in 2017 recommended auto-titrating cpap 15-[address] Chronic venous insufficiency of lower extremity PVD (peripheral vascular disease) History of DVT (deep vein thrombosis) (2004) and pulmonary embolism 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 Chronic osteomyelitis Neurogenic bladder Chronic cystitis Surgical History History of carpal tunnel release History of abdominal surgery (2007) excision of pelvic cysts complicated by bowel perforation, had multiple procedures including colostomy History of inferior vena caval filter placement (2004) still in place in 08/2024 History of incision and drainage (04/2019) sacral wound History of back surgery (2004) for spinal abscess x 2 History of hysterectomy (2003) S/P cholecystectomy S/P section Suprapubic catheter (~2004) following urology in [place] Family History Family/Other Diabetes Cancer CAD (coronary artery disease) Mother , at age 74 Sepsis Cancer melanoma Diabetes Father Heart disease Other Dementia Diabetes mellitus type 1 Hypertension Stroke Social History Smoking and tobacco/nicotine status: never used tobacco/nicotine Alcohol intake: never Substance/Drug Use: never Additional social history: daughter performs dressing changes twice per day, she and other family provide assistance as needed, wheelchair dependent, able to use transfer board Caregiver/support person: Yes Lives independently: Yes Marital status: Current occupational status: disabled Vitals/I&O/Wt Last Vital Signs Temp 97.9 F 09/30/24 15:52 Pulse 110 H 09/30/24 16:30 Resp 24 H 09/30/24 16:30 BP 105/66 09/30/24 16:30 Pulse Ox 100 09/30/24 16:30 O2 Del Method Nasal Cannula 09/30/24 14:50 O2 Flow Rate 2 09/30/24 14:50 09/30/24 09/30/24 09/30/24 06:59 14:59 22:59 Output Total 200 / 200 Balance -200 / -200 Weight last 48 hrs Weight 267 lb Physical Exam Narrative: Chest: Tachypneic on nasal cannula Heart: Tachycardic Abdomen: Soft, exquisitely tender over site of necrotizing fasciitis, nondistended. Patient has a colocutaneous fistula close to the side of the neck does not fasciitis. Data 09/30/24 14:35 09/30/24 18:00 Micro: Microbiology 09/30/24 14:33 Blood Culture - Preliminary Blood SPECIMEN COLLECTED 09/30/24 14:36 Blood Culture - Preliminary Blood SPECIMEN COLLECTED A&P Assessment and plan (1) Necrotizing fasciitis: Plan 54-year-old female who presents with necrotizing fasciitis of the left flank. Complicated medical and surgical history. Has a colocutaneous fistula close to the site of the necrotizing fasciitis. The site of the infection is also the skin overlying her large ventral hernia with loss of domain. I have explained the risks and benefits and patient agrees to proceed with debridement of the abdominal wall, possible exploratory laparotomy, possible bowel resection, possible ABThera. Patient is very complex from a medical and surgical perspective and therefore after initial debridement patient will be transferred to [facility]. This process was initiated in the ED. PDMP PDMP Reviewed: Not Reviewed Coding Level of Care Code 47371 Diagnoses Necrotizing fasciitis M72.6
[2024-09-30 18:22] LABS: Anion Gap 13.7 (5-19); Blood Urea Nitrogen 39 mg/dL (6-20); Calcium 7.8 mg/dL (8.5-10.5); Carbon Dioxide 26 mmol/L (22-29); Chloride 91 mmol/L (98-107); Glomerular Filtration Rate 103.4 mL/min (90-130); Glucose 160 mg/dL (65-115); Magnesium 1.9 mg/dL (1.7-2.3); Osmolality Calculated 275 mOsm/kg (285-295); Potassium 4.7 mmol/L (3.5-5.1); Sodium 126 mmol/L (136-145)
[2024-09-30] MEDS: ondansetron 2 mg/ML SDV 2 mL 4 MG IVP (18:32)
[2024-09-30] MEDS: LORazepam 2 mg/mL INJ 1 mL 1 MG IVP (18:36)
[2024-09-30] MEDS: fentaNYL 50 mcg/mL INJ 2mL 25 MCG IVP (18:38)
--- NOTE | 2024-09-30 19:35 | XRR_ITS ---
PROCEDURE INFORMATION: Exam: XR Chest Exam date and time: 09/30/2024 7:38 PM Age: 54 years old Clinical indication: Device placement; Other: Central line placement TECHNIQUE: Imaging protocol: Radiologic exam of the chest. Views: 1 view. COMPARISON: CR (CHEST, ) 08/29/2024 12:00 PM FINDINGS: Tubes, catheters and devices: Left IJ approach central venous catheter positioned with its tip in the right atrium. Lungs: Unremarkable. No consolidation. Pleural spaces: No pneumothorax. Heart/Mediastinum: Unremarkable. No cardiomegaly. Bones/joints: Unremarkable. XR/XR chest 1V portable [id number] IMPRESSION: 1. Left IJ approach central venous catheter positioned with its tip in the right atrium. 2. No pneumothorax.
--- NOTE | 2024-09-30 19:37 | ANES.PREANE2 ---
Pre-Anesthetic Assessment Height/Weight: Height 5 ft 3 in Weight 267 lb Temp Pulse Resp BP Pulse Ox O2 Del Method O2 Flow Rate 97.9 F 118 H 33 H 101/63 98 Nasal Cannula 2 09/30/24 15:52 09/30/24 19:34 09/30/24 17:50 09/30/24 19:34 09/30/24 19:04 09/30/24 14:50 09/30/24 14:50 Preop Diagnosis: Abdominal wall abscess Operation Date: 09/30/24 20:00 Proposed Procedures p Abdominal wound debridement(Not Applicable) - Miguel Flores MD s Possible Exploratory Laparotomy(Not Applicable) - Miguel Flores MD s Possible Abthera placement(Not Applicable) - Miguel Flores MD Was Beta Colette taken within 24 hours: N/A Was Clonidine taken within 24 hours: N/A Social No alcohol and No tobacco Exam alert, oriented x 3, clear to auscultation bilaterally and regular rate & rhythm Airway Submandibular: within normal limits Cervical ROM: within normal limits Mallampati: Class IV Dentition: full Comments: Comments: Small mouth opening, large neck circumference Anesthetic Plan ASA status: 4E Anesthesia: General Other: Patient presents today with abdominal wall abscess No prior issues with anesthesia NPO since earlier this morning. Unknown time History of paraplegia at T4 level. Patient is wheelchair dependent Prior DVTs on chronic Xarelto. Last taken yesterday. IVC filter in place SAVAGE on CPAP GERD Currently in septic shock, WBC 29.4 Severe hyponatremia noted. NA 126 Lactic acid 2.6 EKG showing sinus tachycardia Plan for GETA. Discussed with patient and family that patient would most likely need to remain intubated and taken to the ICU. They understand this and agreed to proceeding at this time Medications/Allergies Home Medications ?Medication ?Instructions ?Recorded ?Confirmed ?Last Taken ?Type furosemide 20 mg tablet 20 mg PO BID PRN edima 04/12/20 09/30/24 09/30/24 History gabapentin 600 mg tablet 600 mg PO BEDTIME 04/12/20 09/30/24 09/29/24 History potassium chloride 10 mEq 20 meq PO BEDTIME 04/12/20 09/30/24 09/29/24 History capsule,extended release venlafaxine 150 mg 150 mg PO BEDTIME 04/12/20 09/30/24 09/29/24 History capsule,extended release 24 hr ascorbic acid (vitamin C) 1,000 mg 1,000 mg PO BID 10/27/20 09/30/24 09/30/24 History tablet baclofen 20 mg tablet 20 mg PO BEDTIME 02/26/23 09/30/24 09/29/24 History trazodone 50 mg tablet 25 mg PO BEDTIME 09/24/23 09/30/24 09/29/24 History cefdinir 300 mg capsule 300 mg PO DAILY 06/15/24 09/30/24 09/29/24 History albuterol sulfate 1.25 mg/3 mL 2.5 mg inhalation .Q4H PRN 08/18/24 09/30/24 Unknown History solution for nebulization shortness of breath or wheezing prothrombin time/INR test metr #30 ea 08/24/24 09/30/24 Unknown Rx hydrocodone 5 mg-acetaminophen 325 1 tab PO Q4H PRN Pain 09/30/24 09/30/24 Unknown History mg tablet metoclopramide HCl 10 mg tablet 10 mg PO Q8H 09/30/24 09/30/24 09/30/24 History ondansetron 8 mg disintegrating 8 mg PO TID PRN Nausea And Vomiting 09/30/24 09/30/24 Unknown History tablet rivaroxaban 20 mg tablet (Xarelto) 20 mg PO QPM 09/30/24 09/30/24 09/29/24 History Allergies Allergy/AdvReac Type Severity Reaction Status Date / Time levofloxacin (From Levaquin) Allergy Unknown Unknown Verified 09/30/24 14:06 azithromycin Allergy Unknown Verified 09/30/24 14:06 Penicillins Allergy Unknown Verified 09/30/24 14:06 tramadol (From Ultram) Allergy Unknown Verified 09/30/24 14:06 vancomycin Allergy Unknown Verified 09/30/24 14:06 amoxicillin AdvReac Unknown ADR-Seizure Verified 09/30/24 14:06 [facility] Anesthesia Medical History History of angiography 2015 abdominal angiography and lower extremity angiography - normal abdominal aorta, pelvic vessels normal, all lower extremity vessels unremarkable, 3 vessel runoff below both knees History of cardiovascular stress test 07/2024 abnormalities on myocardial perfusion scanning History of sleep study 05/2017 - cpap auto-titrating 15-19 Wound of sacral region goes to wound care clinic Abscess of sacrum Parastomal hernia Ventral incisional hernia GERD (gastroesophageal reflux disease) Depression Fracture of fifth toe, right, closed History of sleep apnea sleep study in 2017 recommended auto-titrating cpap 15-[address] Chronic venous insufficiency of lower extremity PVD (peripheral vascular disease) History of DVT (deep vein thrombosis) (2004) and pulmonary embolism 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 Chronic osteomyelitis Neurogenic bladder Chronic cystitis Surgical History History of carpal tunnel release History of abdominal surgery (2007) excision of pelvic cysts complicated by bowel perforation, had multiple procedures including colostomy History of inferior vena caval filter placement (2004) still in place in 08/2024 History of incision and drainage (04/2019) sacral wound History of back surgery (2004) for spinal abscess x 2 History of hysterectomy (2003) S/P cholecystectomy S/P section Suprapubic catheter (~2004) following urology in [place] Family History Family/Other Diabetes Cancer CAD (coronary artery disease) Mother , at age 74 Sepsis Cancer melanoma Diabetes Father Heart disease Other Dementia Diabetes mellitus type 1 Hypertension Stroke Social History Smoking and tobacco/nicotine status: never used tobacco/nicotine Alcohol intake: never Substance/Drug Use: never Additional social history: daughter performs dressing changes twice per day, she and other family provide assistance as needed, wheelchair dependent, able to use transfer board Caregiver/support person: Yes Lives independently: Yes Marital status: Current occupational status: disabled Data Anesthesia 09/30/24 14:35 09/30/24 18:00 Short CBC 09/30/24 Range/Units 14:35 WBC 29.42 H (3.29-11.43) 10^3/uL Hgb 12.80 (11.27-16.99) g/dL Hct 42.0 (36-47) % MCV 95.0 (85-98) fl Plt Count 1388 H (157-399) 10^3/cmm Neut % (Auto) 85.4 % Neut # (Auto) 25.16 H (1.8-7.7) 10^3/uL BMP 09/30/24 09/30/24 14:35 18:00 Sodium 124 L 126 L Potassium 5.4 H 4.7 Chloride 86 L 91 L Carbon Dioxide 27 26 BUN 43 H 39 H Creatinine 0.7 0.6 Glucose 122 H 160 H Calcium 9.1 7.8 L Liver Function 09/30/24 Range/Units 14:35 Total Bilirubin 0.9 (0.15-1.2) mg/dL AST 30 (0-32) U/L ALT 33 (0-33) U/L Alkaline Phosphatase 392 H (35-105) U/L Albumin 2.5 L (3.5-5.2) g/dL Urine 09/30/24 Range/Units 15:20 Urine Color Dark yellow A (Yellow) Urine Appearance Turbid A (CLEAR) Urine pH 5.0 (5-7) Ur Specific [place] 1.035 H (1.005-1.030) Urine Protein 2+ A (Negative) Urine Glucose (UA) Negative (Normal) Urine Ketones Negative (Negative) Urine Nitrate Positive A (Negative) Urine Bilirubin 1+ H (Negative) Ur Leukocyte Esterase 3+ A (Negative) Urine RBC 21-50 H (0-2) /hpf Urine WBC >100 H (0-5) /hpf Microbiology 09/30/24 14:33 Blood Culture - Preliminary Blood SPECIMEN COLLECTED 09/30/24 14:36 Blood Culture - Preliminary Blood SPECIMEN COLLECTED Cardiac Studies: Echocardiogram 08/18/24 Sestamibi Stress Test (Cardiology) 08/05/24
[2024-09-30] MEDS: clindamycin 600 MG/50 ML PREMIX 100 MG IV (20:25)
--- NOTE | 2024-09-30 20:28 | PC.NURSE ---
AT APPROXIMATELY 1800 DR DANIEL VERBALIZED THAT PT NEEDED CENTRAL LINE PLACEMENT D/T NEED FOR MULTIPLE MEDS AND BETTER VENOUS ACCESS. PT AND FAMILY AWARE AND CONSENT WAS PRESENTED AND SIGNED; PLACED IN PT CHART. THIS NURSE, DR DANIEL, AND PA STUDENT WERE PRESENT DURING CENTRAL LINE PLACEMENT. PT GIVEN MEDS FOR PAIN AND ANXIETY RELIEF PRIOR TO PROCEDURE; SEE MAR. PT REMAINED AWAKE AND ALERT AND ORIENTED THROUGHOUT PLACEMENT. VITAL SIGNS CHARTED. PT TOLERATED PROCEDURE WELL. CENTRAL LINE PLACEMENT PROCEDURE ENDED AT APPROXIMATELY 1930. PT TAKEN TO SURGERY DEPT WITH SURGERY STAFF AND FAMILY AT 1945.
--- NOTE | 2024-09-30 20:55 | P.OP_ITS ---
Operative Report Date of procedure: September 30, 2024 Pre-op diagnosis: Necrotizing fasciitis Post-op diagnosis: same Post-op findings: Necrotizing fasciitis to the left flank. 400 cc of purulent fluid and feces ev acuated. Culture sent. Tissue also sent for culture. Debrided an area of 12 x 6 x 3 cm. Patient has a colocutaneous fistula draining from the proximal end of the wound. Procedure done: Abdominal wound debridement down to fascia 12 x 6 x 3 cm Implants: N/A Specimens removed/disposition: Tissue and culture sent to [place] for culture Pathology: none sent Surgeon: Miguel Flores MD Auto Radio Mechanic: N/A Anesthesia: General Estimated blood loss (mL): 50 Complications: N/A Findings: Necrotizing fasciitis to the left flank. 400 cc of purulent fluid and feces evacuated. Culture sent. Tissue also sent for culture. Debrided an area of 12 x 6 x 3 cm. Patient has a colocutaneous fistula draining from the proximal end of the wound. Condition: critical Disposition: ICU Brief History: 54-year-old female with a complex medical and surgical history who presented with a left leg necrotizing soft tissue infection. Patient already has a history of colocutaneous fistula managed conservatively. Discussed risk and benefits and patient and family agreed to proceed with debridement of the abd ominal wall, possible exploratory laparotomy, possible bowel resection, possible ABThera. Procedure: Patient was brought into the operating room and laid supine on the OR table. General anesthesia was induced. The abdomen was prepped and draped in the usual sterile fashion. A 10 blade was used to carry out a 12 cm incision over the point of maximal fluctuance on the right flank. Immediate evacuation of 100 cc of purulent and feculent fluid was evacuated. Cultures were sent. The base of the wound at the level of oblique muscles contained necrotic tissue that was debrided down to healthy fascia. A total of 12 x 6 x 3 cm area of abdominal wall down to fascia was sharply debrided. The wound was irrigated with 1 L of hydrogen peroxide diluted 50-50. I will hemostasis was achieved using electrocautery. The patient seems to have developed another colocutaneous fistula that was evacuating to the abdominal wall on the proximal end of the wound. The wound was packed with wet-to-dry using Kerlix. Abdominal pads were placed on top. The patient was left intubated and was transferred to the ICU in critical condition.
--- NOTE | 2024-09-30 21:10 | PC.NURSE ---
Levophed Levophed administering at 6 mcg/min from bag that came from OR. No label present to scan, MAR unable to be updated with administration.
--- NOTE | 2024-09-30 21:20 | PC.NURSE ---
Sedation No sedation or pain medication drips ordered for patient. Dr. Smith contacted and orders received for versed and fentanyl drips.
--- NOTE | 2024-09-30 21:27 | XRR_ITS ---
PROCEDURE INFORMATION: Exam: XR Chest Exam date and time: 09/30/2024 8:29 PM Age: 54 years old Clinical indication: Device placement; Other: Ng and et tube placement; Additional info: Et and ng tube placement TECHNIQUE: Imaging protocol: Radiologic exam of the chest. Views: 1 view. COMPARISON: CR (CHEST, ) 09/30/2024 7:38 PM FINDINGS: Tubes, catheters and devices: The ETT is positioned 3.2 cm above the miguel. The NG tube tracks into the stomach with its tip in the proximal stomach and its side-hole in the distal esophagus. Consider advancing 8 cm for more optimal positioning. Lungs: Unremarkable. No consolidation. Pleural spaces: Unremarkable. No pleural effusion. No pneumothorax. Heart/Mediastinum: Unremarkable. No cardiomegaly. Bones/joints: Unremarkable. XR/XR chest 1V portable [id number] IMPRESSION: 1. The ETT is positioned 3.2 cm above the miguel. 2. The NG tube tracks into the stomach with its tip in the proximal stomach and its side-hole in the distal esophagus. Consider advancing 8 cm for more optimal positioning.
[2024-09-30] MEDS: midazolam hcl 100 MG/100 ML BAG IV (21:40)
[2024-09-30] MEDS: fentaNYL 1,000 MCG/100 ML BAG 2.5 MCG IV (21:40)
--- NOTE | 2024-09-30 21:40 | PM.HP ---
Providers/Chief Complaint Admitting Physician: Miguel Flores MD Primary Care Provider: Marcus Benson MD Chief Complaint: poss infection History of Present Illness Jami Gandhi is a 54 year old female who has a very complex surgical history, patient developed colocutaneous fistula after complications from surgery in the past roughly 20 years ago when ovarian cyst was resected resulting in bowel injury, for her fistula she was evaluated at [facility] and was being managed conservatively for loss of domain at ventral hernia, at home her most of the care has been provided by the family members, was brought in today for appearance of dark-colored necrotic left flank skin area. Daughter is stating that she is the main caregiver and knows her mother very well, in last 12 hours she started noticing that her left flank area was getting dark and necrotic, she spiked fever 100.4 yesterday, no vomiting or nausea, output from the ostomy bag decreased yesterday as well, did notice dark-colored content in the back today, due to these concerns she was brought into the hospital for further evaluation. Workup in the ER consistent with sepsis/septic shock, central line placed by the ER physician, patient needed tertiary level of care where general surgery and colorectal surgeon could evaluate her case however secondary to no bed availability decision was made to achieve source control here at the [facility]. General surgery Dr. Flores was consulted who took her to the OR for necrotizing fasciitis of left flank. Patient came to the ICU on Levophed, intubated, has an art line along central line. Patient was waking up asking us to remove her endotracheal tube, her fentanyl sedation was increased, Versed added, secondary to requirement of Levophed vasopressor we wanted to avoid propofol. Family is at the bedside. Patient has been accepted at [facility] surgical ICU Dr. Rosado is the acccepting MD. Patient has been given micafungin, clindamycin, metronidazole, ceftriaxone, patient seems to have anaphylactic reaction to penicillin and skin hives and rash with vancomycin. Current vent settings: FiO2 40% PEEP 6: pH 7.35, pCO2 43, pO2 238 this ABG was taken at FiO2 60% Her white count was 30,000 lactic acid 2.6 which has improved to 2.0 She is getting IV fluids at 100 mL/h, Levophed at 6 mics Has fentanyl and Versed for sedation Sodium 126: Creatinine 0.6 bicarb 26 glucose 160. She seems to have abnormal UA as well however sample is not sterile Review of Systems General: Reports: ROS unobtainable due to endotracheal tube Medications/Allergies Home Medications ?Medication ?Instructions ?Recorded ?Confirmed ?Last Taken ?Type furosemide 20 mg tablet 20 mg PO BID PRN edima 04/12/20 09/30/24 09/30/24 History gabapentin 600 mg tablet 600 mg PO BEDTIME 04/12/20 09/30/24 09/29/24 History potassium chloride 10 mEq 20 meq PO BEDTIME 04/12/20 09/30/24 09/29/24 History capsule,extended release venlafaxine 150 mg 150 mg PO BEDTIME 04/12/20 09/30/24 09/29/24 History capsule,extended release 24 hr ascorbic acid (vitamin C) 1,000 mg 1,000 mg PO BID 10/27/20 09/30/24 09/30/24 History tablet baclofen 20 mg tablet 20 mg PO BEDTIME 02/26/23 09/30/24 09/29/24 History trazodone 50 mg tablet 25 mg PO BEDTIME 09/24/23 09/30/24 09/29/24 History cefdinir 300 mg capsule 300 mg PO DAILY 06/15/24 09/30/24 09/29/24 History albuterol sulfate 1.25 mg/3 mL 2.5 mg inhalation .Q4H PRN 08/18/24 09/30/24 Unknown History solution for nebulization shortness of breath or wheezing prothrombin time/INR test metr #30 ea 08/24/24 09/30/24 Unknown Rx hydrocodone 5 mg-acetaminophen 325 1 tab PO Q4H PRN Pain 09/30/24 09/30/24 Unknown History mg tablet metoclopramide HCl 10 mg tablet 10 mg PO Q8H 09/30/24 09/30/24 09/30/24 History ondansetron 8 mg disintegrating 8 mg PO TID PRN Nausea And Vomiting 09/30/24 09/30/24 Unknown History tablet rivaroxaban 20 mg tablet (Xarelto) 20 mg PO QPM 09/30/24 09/30/24 09/29/24 History Allergies Allergy/AdvReac Type Severity Reaction Status Date / Time levofloxacin (From Levaquin) Allergy Unknown Unknown Verified 09/30/24 14:06 azithromycin Allergy Unknown Verified 09/30/24 14:06 Penicillins Allergy Unknown Verified 09/30/24 14:06 tramadol (From Ultram) Allergy Unknown Verified 09/30/24 14:06 vancomycin Allergy Unknown Verified 09/30/24 14:06 amoxicillin AdvReac Unknown ADR-Seizure Verified 09/30/24 14:06 PFSH Acute PFSH: Medical History History of angiography 2015 abdominal angiography and lower extremity angiography - normal abdominal aorta, pelvic vessels normal, all lower extremity vessels unremarkable, 3 vessel runoff below both knees History of cardiovascular stress test 07/2024 abnormalities on myocardial perfusion scanning History of sleep study 05/2017 - cpap auto-titrating 15-19 Wound of sacral region goes to wound care clinic Abscess of sacrum Parastomal hernia Ventral incisional hernia GERD (gastroesophageal reflux disease) Depression Fracture of fifth toe, right, closed History of sleep apnea sleep study in 2016 recommended auto-titrating cpap 15-[address] Chronic venous insufficiency of lower extremity PVD (peripheral vascular disease) History of DVT (deep vein thrombosis) (2004) and pulmonary embolism 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 Chronic osteomyelitis Neurogenic bladder Chronic cystitis Surgical History History of carpal tunnel release History of abdominal surgery (2007) excision of pelvic cysts complicated by bowel perforation, had multiple procedures including colostomy History of inferior vena caval filter placement (2004) still in place in 08/2024 History of incision and drainage (04/2019) sacral wound History of back surgery (2004) for spinal abscess x 2 History of hysterectomy (2003) S/P cholecystectomy S/P section Suprapubic catheter (~2004) following urology in [place] Family History Family/Other Diabetes Cancer CAD (coronary artery disease) Mother , at age 74 Sepsis Cancer melanoma Diabetes Father Heart disease Other Dementia Diabetes mellitus type 1 Hypertension Stroke Social History Smoking and tobacco/nicotine status: never used tobacco/nicotine Alcohol intake: never Substance/Drug Use: never Additional social history: daughter performs dressing changes twice per day, she and other family provide assistance as needed, wheelchair dependent, able to use transfer board Caregiver/support person: Yes Lives independently: Yes Marital status: Current occupational status: disabled Vitals/I&O/Wt Last Vital Signs Temp 97.9 F 09/30/24 15:52 Pulse 123 H 09/30/24 19:40 Resp 16 09/30/24 21:29 BP 101/63 09/30/24 19:40 Pulse Ox 100 09/30/24 21:29 O2 Del Method Nasal Cannula 09/30/24 14:50 O2 Flow Rate 2 09/30/24 14:50 FiO2 60 09/30/24 21:29 09/30/24 09/30/24 09/30/24 06:59 14:59 22:59 Intake Total 2450 / 2450 Output Total 500 / 500 Balance 1950 / 1950 Weight last 48 hrs Weight 121.109 kg Physical Exam Narrative: Patient is intubated and sedated Distended abdomen Patient has stage IV sacral area ulcer with chronic osteomyelitis changes Offloading dressing on her heels bilaterally Mahajan catheter in place Art line in place Central line dressing without any soaking blood S1, S2 variable Colostomy bag in place, ventral hernia, wet-to-dry dressing around fistula Data 09/30/24 14:35 09/30/24 18:00 Micro: Microbiology 09/30/24 14:33 Blood Culture - Preliminary Blood SPECIMEN COLLECTED 09/30/24 14:36 Blood Culture - Preliminary Blood SPECIMEN COLLECTED A&P Assessment and plan (1) Ventral incisional hernia: (2) Parastomal hernia: (3) Colostomy in place: (4) BMI 50.0-59.9, adult: (5) Chronic anticoagulation: (6) Shock: (7) Neurogenic bladder: (8) Chronic osteomyelitis: (9) Septic shock: (10) Groin hematoma: (11) 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: Plan Septic shock Left flank necrotizing fasciitis with underlying colocutaneous fistula, parastomal hernia, 09/30: Taken to the OR right from the ER by Dr. Flores general surgery 400 cc of purulent fluid and feces evacuated. Culture sent. Tissue also sent for culture. Debrided an area of 12 x 6 x 3 cm. Estimated blood loss 50 cc Start clindamycin for toxin suppression along ceftriaxone, Flagyl Continue IV fluids, septic bolus administered in the ER Levophed at 6 mics Blood cultures taken, culture from the OR to be followed Colocutaneous fistula: Wet-to-dry dressing: Patient will need continuous general surgery evaluation and serial debridement Has been accepted at [facility] surgical ICU Patient at this point is stable hemodynamically to be transferred, oxygen requirement is 40% Acute respiratory failure requiring mechanical ventilation perioperatively Patient is only requiring 40% FiO2 with PEEP of5 Sedated with Versed and fentanyl, ABG showed compensated pH Chronic osteomyelitis sacral area with stage IV ulcer Patient has bariatric bed at home, daughter is a main caregiver Chronic indwelling catheter, abnormal UA however not a sterile sample Offloading dressing on the heels Family has not endorse history of diabetes but stating that with her sickness her blood sugar has been on the higher side Current blood sugar is around 160 mg/dL Lactic acid has improved from 2.6 to 2 with septic bolus Hyponatremia: It is very hard to assess her volume status unfortunately, however secondary to septic shock presentation she is requiring high maintenance rate IV fluids Coordinated care to get her transferred to [facility], spoke with [facility] general surgeon Dr. Flores as well N.p.o. Full code Patient took anticoagulating agent 09/29 Currently on DVT prophylaxis heparin GI prophylaxis: Protonix Chlorhexidine daily mouthwash PDMP PDMP Reviewed: Not Reviewed Attestations Medical Necessity Statement*: Accepted at [facility] Coding Level of Care Code Critical Care >/= 30 minutes Critical care time (in minutes): 30 The high probability of a clinically significant, sudden or life threatening deterioration, as referenced in this documentation, required my full and direct attention, intervention and personal management. The critical care time shown is in addition to time spent performing any reported separately billable procedures and includes the following: [x] Data and vital sign review and interpretation [x] Patient assessment, examination and intervention [x] Medication orders and management [x] Patient/Family updates as able [x] Care Coordination and Documentation. Diagnoses Ventral incisional hernia K43.2 Parastomal hernia K43.[address] Z93.3 BMI 50.0-59.9, adult Z68.43 Chronic anticoagulation Z79.01 Shock R57.9 Neurogenic bladder N31.9 Chronic osteomyelitis M86.60 Septic shock A41.9; R65.21 Groin hematoma S30.1XXA 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
[2024-09-30 21:47] LABS: ABG PH Result 7.35 (7.35-7.45); Alveolar-Arterial Oxygen Gradi 17.5 mmHg (5-10); Arterial Blood Gas Hematocrit 34.4 % (37-47); Base Excess ABG -1.8 mmol/L (-2.0-2.0); Blood Gas Allen Test Pos; Blood Gas Operator Identificat SAM; Blood Gas Sample Site Brachial, right; Blood Gas Sample Type Arterial; Carboxyhemoglobin 1.2 %THgb (0.4-20.1); HCO3 ABG 23.8 mmol/L (22-26); HGB O2 Sat 98.8 % (95-100); Ionized Calcium Level - ABG 1.1 mmol/L (1.1-1.4); Methemoglobin 0.2 % (0.4-1.5); Oxygen Device VENT; Oxygen Saturation ABG > 99.1; PO2 FiO2 Ratio Arterial Blood 396; Potassium Level - ABG 4.1 mmol/L (3.5-5.0); Total Hemoglobin 11.2 g/dL (12-16)
[2024-09-30] MEDS: heparin 5,000 unit/mL INJ 1 mL 5000 UNIT SUBCUT (22:05)
--- NOTE | 2024-09-30 22:30 | PC.NURSE ---
Physician Communication Dr. Smith at bedside; orders received for a 20 mg propofol IVP once now for sedation, change NS maintenance fluid to 100 ml/hr in place of 30 ml/hr, discontinue vancomycin, and discontinue PO KCL.
[2024-09-30 22:36] LABS: Procalcitonin 0.48 ng/mL (0-0.5)
[2024-09-30] MEDS: sodium chloride 0.9% 1,000 ML 100 ML IV (22:37)
[2024-09-30] MEDS: propofol 10 mg/mL SDV 20 mL 20 MG IVP (22:41)
[2024-09-30] MEDS: piperacillin-tazobactam 3.375 GM in sodium chloride 0.9% (plus) 50 ML IV (23:15)
--- NOTE | 2024-09-30 23:30 | PM.TDS ---
Transfer Summary Providers Date of Admission: 09/30/24 20:55 Date of Discharge/Transfer: 09/30/24 Attending Provider at Admission: Miguel Flores MD Attending Provider at Transfer: Miguel Flores MD Primary Care Provider: Marcus Benson MD Transfer Plans: Anticipated date of transfer: 09/30/24. 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 Reason for Visit Reason for Visit poss infection Hospital Course Hospital Course Jami Gandhi is a 54 year old female who has a very complex surgical history, 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 Daughter is stating that she is the main caregiver and knows her mother very well, in last 12 hours she started noticing that her left flank area was getting dark and necrotic, she spiked fever 100.4 yesterday, no vomiting or nausea, output from the ostomy bag decreased yesterday as well, did notice dark-colored content in the back today, due to these concerns she was brought into the hospital for further evaluation. Workup in the ER consistent with sepsis/septic shock, central line placed by the ER physician, patient needed tertiary level of care where general surgery and colorectal surgeon could evaluate her case however secondary to no bed availability decision was made to achieve source control here at the [facility]. General surgery Dr. Flores was consulted who took her to the OR for necrotizing fasciitis of left flank. Patient came to the ICU on Levophed, intubated, has an art line along central line. Patient was waking up asking us to remove her endotracheal tube, her fentanyl sedation was increased, Versed added, secondary to requirement of Levophed vasopressor we wanted to avoid propofol. Family is at the bedside. Patient has been accepted at [facility] surgical ICU Dr. Rosado is the acccepting MD. Patient has been given micafungin, clindamycin, metronidazole, ceftriaxone, patient seems to have anaphylactic reaction to penicillin and skin hives and rash with vancomycin. Current vent settings: FiO2 40% PEEP 6: pH 7.35, pCO2 43, pO2 238 this ABG was taken at FiO2 60% Her white count was 30,000 lactic acid 2.6 which has improved to 2.0 She is getting IV fluids at 100 mL/h, Levophed at 6 mics Has fentanyl and Versed for sedation Sodium 126: Creatinine 0.6 bicarb 26 glucose 160. She seems to have abnormal UA as well however sample is not sterile Physical Exam Narrative: Patient is intubated and sedated Distended abdomen Patient has stage IV sacral area ulcer with chronic osteomyelitis changes Offloading dressing on her heels bilaterally Mahajan catheter in place Art line in place Central line dressing without any soaking blood S1, S2 variable Colostomy bag in place, ventral hernia, wet-to-dry dressing around fistula TS Data Studies Completed and Pending Pending at discharge Category Date Time Status Anaerobic Culture Routine Lab 09/30/24 20:27 Received Arterial Blood Gas W/O Coox AM LABS Lab 10/01/24 04:00 Ordered Basic Metabolic Panel AM LABS Lab 10/01/24 04:00 Ordered Blood Culture Stat Lab 09/30/24 14:33 Results C Reactive Protein AM LABS Lab 10/01/24 04:00 Ordered Complete Blood Count w/Auto AM LABS Lab 10/01/24 04:00 Ordered Comprehensive Metabolic Panel AM LABS Lab 10/01/24 04:00 Ordered Magnesium AM LABS Lab 10/01/24 04:00 Ordered PHOS [Phosphorus] AM LABS Lab 10/01/24 04:00 Ordered Tissue Culture and Gram Stain Routine Lab 09/30/24 20:27 Received Urine Culture Stat Lab 09/30/24 15:20 Received Wound Culture and Gram Stain Routine Lab 09/30/24 20:27 Received Completed Studies During Hospitalization Category Date Time Status CT abdomen pelvis w con* [id number] Stat Cat Scan 09/30/24 14:39 Completed XR chest 1V portable [id number] Stat Exams 09/30/24 19:35 Completed XR chest 1V portable [id number] Stat Exams 09/30/24 21:27 Completed Laboratory Last Values WBC 29.42 10^3/uL (3.29-11.43) H 09/30/24 14:35 RBC 4.42 10^6/uL (3.85-5.65) 09/30/24 14:35 Hgb 12.80 g/dL (11.27-16.99) 09/30/24 14:35 Hct 42.0 % (36-47) 09/30/24 14:35 MCV 95.0 fl (85-98) 09/30/24 14:35 MCH 29.0 pg (27-33) 09/30/24 14:35 MCHC 30.5 g/dL (30-55) 09/30/24 14:35 RDW 17.2 % (12.1-15.1) H 09/30/24 14:35 Plt Count 1388 10^3/cmm (157-399) H 09/30/24 14:35 MPV 9.9 fL (7.4-10.4) 09/30/24 14:35 Neut % (Auto) 85.4 % 09/30/24 14:35 Lymph % (Auto) 5.0 % 09/30/24 14:35 [place] % (Auto) 6.1 % 09/30/24 14:35 Eos % (Auto) 0.5 % 09/30/24 14:35 Baso % (Auto) 0.7 % 09/30/24 14:35 Neut # (Auto) 25.16 10^3/uL (1.8-7.7) H 09/30/24 14:35 Lymph # (Auto) 1.5 10^3/uL (0.8-4.8) 09/30/24 14:35 [place] # (Auto) 1.8 10^3/uL (0.2-0.9) H 09/30/24 14:35 Eos # (Auto) 0.1 10^3/uL (0.0-0.8) 09/30/24 14:35 Baso # (Auto) 0.2 10^3/uL (0.0-0.1) H 09/30/24 14:35 Nucleated RBC % (auto) 0 % 09/30/24 14:35 Nucleated RBCs # 0.0 /100WBC 09/30/24 14:35 Specimen Type Arterial 09/30/24 21:35 Sample Site Brachial, right 09/30/24 21:35 ABG pH 7.35 (7.35-7.45) 09/30/24 21:35 ABG pCO2 43.0 mmHg (35-45) 09/30/24 21:35 ABG pO2 238.0 mmHg (80.0-100.0) H 09/30/24 21:35 ABG PO2/FiO2 Ratio 396 09/30/24 21:35 ABG HCO3 23.8 mmol/L (22-26) 09/30/24 21:35 ABG O2 Saturation > 99.1 09/30/24 21:35 ABG Base Excess -1.8 mmol/L (-2.0-2.0) 09/30/24 21:35 Juan Test Pos 09/30/24 21:35 A-a O2 Gradient 17.5 mmHg (5-10) H 09/30/24 21:35 Hematocrit 34.4 % (37-47) L 09/30/24 21:35 Hgb O2 Saturation 98.8 % (95-100) 09/30/24 21:35 Carboxyhemoglobin 1.2 %THgb (0.4-20.1) 09/30/24 21:35 Methemoglobin 0.2 % (0.4-1.5) L 09/30/24 21:35 Total Hemoglobin 11.2 g/dL (12-16) L 09/30/24 21:35 Sodium 130.0 mmol/L (131-143) L 09/30/24 21:35 Potassium 4.1 mmol/L (3.5-5.0) 09/30/24 21:35 Glucose 132.0 mg/dL (70-115) H 09/30/24 21:35 Ionized Calcium 1.1 mmol/L (1.1-1.4) 09/30/24 21:35 O2 Delivery Device Vent 09/30/24 21:35 FiO2 60.0 % 09/30/24 21:35 Tidal Volume 0.40 09/30/24 21:35 PEEP 7.0 cmH20 09/30/24 21:35 Structural [employer] E[employer] Supervisor ID [id number] 09/30/24 21:35 Sodium 126 mmol/L (136-145) L 09/30/24 18:00 Potassium 4.7 mmol/L (3.5-5.1) 09/30/24 18:00 Chloride 91 mmol/L (98-107) L 09/30/24 18:00 Carbon Dioxide 26 mmol/L (22-29) 09/30/24 18:00 Anion Gap 13.7 (5-19) 09/30/24 18:00 BUN 39 mg/dL (6-20) H 09/30/24 18:00 Creatinine 0.6 mg/dL (0.5-0.9) 09/30/24 18:00 GFR Calculation 103.4 mL/min (90-130) 09/30/24 18:00 Glucose 160 mg/dL (65-115) H 09/30/24 18:00 Calculated Osmolality 275 mOsm/kg (285-295) L 09/30/24 18:00 Lactic Acid 2.6 mmol/L (0.5-2.2) H 09/30/24 14:35 Lactic Acid (Sepsis) 2.0 mmol/L (0.5-2.2) 09/30/24 17:44 Calcium 7.8 mg/dL (8.5-10.5) L 09/30/24 18:00 Magnesium 1.9 mg/dL (1.7-2.3) 09/30/24 18:00 Total Bilirubin 0.9 mg/dL (0.15-1.2) 09/30/24 14:35 AST 30 U/L (0-32) 09/30/24 14:35 ALT 33 U/L (0-33) 09/30/24 14:35 Alkaline Phosphatase 392 U/L (35-105) H 09/30/24 14:35 Total Protein 8.1 g/dL (6.6-8.7) 09/30/24 14:35 Albumin 2.5 g/dL (3.5-5.2) L 09/30/24 14:35 Globulin 5.6 g/dL (1.3-4.6) H 09/30/24 14:35 Lipase 53 U/L (13-60) 09/30/24 14:35 Procalcitonin 0.48 ng/mL (0-0.5) 09/30/24 18:00 Urine Color Dark yellow (Yellow) A 09/30/24 15:20 Urine Appearance Turbid (CLEAR) A 09/30/24 15:20 Urine pH 5.0 (5-7) 09/30/24 15:20 Ur Specific [place] 1.035 (1.005-1.030) H 09/30/24 15:20 Urine Protein 2+ (Negative) A 09/30/24 15:20 Urine Glucose (UA) Negative (Normal) 09/30/24 15:20 Urine Ketones Negative (Negative) 09/30/24 15:20 Urine Blood 3+ (Negative) A 09/30/24 15:20 Urine Nitrate Positive (Negative) A 09/30/24 15:20 Urine Bilirubin 1+ (Negative) H 09/30/24 15:20 Urine Urobilinogen 1.0 mg/dL (Negative) 09/30/24 15:20 Ur Leukocyte Esterase 3+ (Negative) A 09/30/24 15:20 Urine RBC 21-50 /hpf (0-2) H 09/30/24 15:20 Urine WBC >100 /hpf (0-5) H 09/30/24 15:20 Ur Squamous Epith Cells >100 /hpf (0-5) H 09/30/24 15:20 Amorphous Sediment Not Reportable 09/30/24 15:20 Urine Bacteria Exceeds /hpf (NONE) 09/30/24 15:20 Hyaline Casts 9.10 /lpf 09/30/24 15:20 Radiology Impressions Abdomen/Pelvis CT 09/30/24 14:39 IMPRESSION: 1. Large ventral hernia along the left anterior lateral abdominal wall. Partially visualized fluid air subcutaneous tissues with skin thickening overlying the hernia. Correlate with clinical history as this could reflect cellulitis and abscess or sequela of recent surgery if applicable. This could also reflect patient's reported history of ostomy as it is not fully visualized on exam. 2. Partially visualized large fluid collection along the anterolateral proximal right upper extremity. COMMENTS: For patients with an IVC filter, recommend assessment for a management plan for the patient's IVC filter. If there is no established management plan, recommend referral to an interventional clinician on a nonemergent basis for evaluation. Chest X-Ray 09/30/24 21:27 IMPRESSION: 1. The ETT is positioned 3.2 cm above the miguel. 2. The NG tube tracks into the stomach with its tip in the proximal stomach and its side-hole in the distal esophagus. Consider advancing 8 cm for more optimal positioning. Recent Clincial Data Last Vital Signs Temp 97.9 F 09/30/24 15:52 Pulse 123 H 09/30/24 19:40 Resp 16 09/30/24 21:29 BP 101/63 09/30/24 19:40 Pulse Ox 100 09/30/24 21:29 O2 Del Method Nasal Cannula 09/30/24 14:50 O2 Flow Rate 2 09/30/24 14:50 FiO2 40 09/30/24 21:57 Vital Signs Temp Pulse Resp BP Pulse Ox O2 Del Method O2 Flow Rate 09/30/24 21:57 09/30/24 21:29 16 100 09/30/24 19:40 123 H 101/63 97 09/30/24 19:35 119 H 101/63 100 09/30/24 19:34 118 H 101/63 09/30/24 19:25 130 H 111/71 97 09/30/24 19:20 117 H 111/71 99 09/30/24 19:15 118 H 115/58 99 09/30/24 19:10 120 H 115/58 98 09/30/24 19:05 121 H 115/58 97 09/30/24 19:04 120 H 115/58 98 09/30/24 18:55 119 H 33 H 83/56 98 09/30/24 18:50 117 H 38 H 83/56 98 09/30/24 18:45 113 H 37 H 81/70 98 09/30/24 18:40 111 H 36 H 81/70 99 09/30/24 18:35 111 H 22 H 81/70 99 09/30/24 18:30 110 H 18 81/70 98 09/30/24 18:25 113 H 30 H 96/70 95 09/30/24 18:20 113 H 27 H 96/70 96 09/30/24 18:15 115 H 23 H 96/70 93 09/30/24 18:10 113 H 27 H 81/56 97 09/30/24 18:05 113 H 37 H 81/56 99 09/30/24 18:00 111 H 19 H 95/53 99 09/30/24 17:55 107 H 34 H 95/53 100 09/30/24 17:50 112 H 33 H 95/53 91 09/30/24 17:40 112 H 36 H 117/48 98 09/30/24 17:35 111 H 20 H 117/48 98 09/30/24 17:30 114 H 24 H 117/48 98 09/30/24 17:25 117 H 35 H 119/53 98 09/30/24 17:20 114 H 31 H 119/53 99 09/30/24 17:15 115 H 23 H 93/78 99 09/30/24 17:10 110 H 26 H 93/78 100 09/30/24 17:05 115 H 19 H 93/78 98 09/30/24 17:00 117 H 27 H 93/78 92 09/30/24 16:55 115 H 29 H 109/51 99 09/30/24 16:40 112 H 22 H 105/66 100 09/30/24 16:35 112 H 21 H 105/66 96 09/30/24 16:30 110 H 24 H 105/66 100 09/30/24 16:25 112 H 29 H 98/52 96 09/30/24 16:20 112 H 28 H 98/52 91 09/30/24 16:10 114 H 23 H 96/62 97 09/30/24 16:05 115 H 24 H 96/62 99 09/30/24 16:00 116 H 22 H 96/62 97 09/30/24 15:55 118 H 26 H 126/61 09/30/24 15:52 97.9 F 09/30/24 15:50 118 H 26 H 126/61 09/30/24 15:45 118 H 18 126/61 09/30/24 15:40 121 H 22 H 110/60 09/30/24 15:35 119 H 15 110/60 09/30/24 15:30 125 H 28 H 110/60 09/30/24 15:25 122 H 17 101/77 09/30/24 15:20 118 H 18 101/77 09/30/24 15:15 120 H 18 96/54 09/30/24 15:10 119 H 22 H 09/30/24 15:09 119 H 09/30/24 14:55 112/83 03/25 14:50 122 H 33 H 112/83 100 Nasal Cannula 2 09/30/24 14:40 121 H 28 H 124/98 100 09/30/24 14:35 121 H 29 H 124/98 96 09/30/24 14:25 121 H 25 H 105/70 99 09/30/24 14:20 123 H 28 H 105/70 94 09/30/24 14:15 125 H 20 H 105/70 09/30/24 14:10 123 H 33 H 126/78 99 09/30/24 14:08 122 H 32 H 126/78 100 09/30/24 13:53 98.6 F 121 H 126/78 98 Nasal Cannula 2 FiO2 09/30/24 21:57 40 09/30/24 21:29 60 09/30/24 19:40 09/30/24 19:35 09/30/24 19:34 09/30/24 19:25 09/30/24 19:20 09/30/24 19:15 09/30/24 19:10 09/30/24 19:05 09/30/24 19:04 09/30/24 18:55 09/30/24 18:50 09/30/24 18:45 09/30/24 18:40 09/30/24 18:35 09/30/24 18:30 09/30/24 18:25 09/30/24 18:20 09/30/24 18:15 09/30/24 18:10 09/30/24 18:05 09/30/24 18:00 09/30/24 17:55 09/30/24 17:50 09/30/24 17:40 09/30/24 17:35 09/30/24 17:30 09/30/24 17:25 09/30/24 17:20 09/30/24 17:15 09/30/24 17:10 09/30/24 17:05 09/30/24 17:00 09/30/24 16:55 09/30/24 16:40 09/30/24 16:35 09/30/24 16:30 09/30/24 16:25 09/30/24 16:20 09/30/24 16:10 09/30/24 16:05 09/30/24 16:00 09/30/24 15:55 09/30/24 15:52 09/30/24 15:50 09/30/24 15:45 09/30/24 15:40 09/30/24 15:35 09/30/24 15:30 09/30/24 15:25 09/30/24 15:20 09/30/24 15:15 09/30/24 15:10 09/30/24 15:09 09/30/24 14:55 09/30/24 14:50 09/30/24 14:40 09/30/24 14:35 09/30/24 14:25 09/30/24 14:20 09/30/24 14:15 09/30/24 14:10 09/30/24 14:08 09/30/24 13:53 Intake & Output/Weight 09/28/24 09/29/24 09/30/24 10/01/24 06:59 06:59 06:59 06:59 Intake Total 2456.392 / 2456.392 Output Total 500 / 500 Balance 1956.392 / 1956.392 Weight 121.109 kg Vitals Last Vital Signs Temp 97.9 F 09/30/24 15:52 Pulse 123 H 09/30/24 19:40 Resp 16 09/30/24 21:29 BP 101/63 09/30/24 19:40 Pulse Ox 100 09/30/24 21:29 O2 Del Method Nasal Cannula 09/30/24 14:50 O2 Flow Rate 2 09/30/24 14:50 FiO2 40 09/30/24 21:57 TS Medications Medications Acetaminophen (Acetaminophen 500 Mg Tablet) 500 mg PO Q4H PRN PRN Reason: fever Albuterol Sulfate (Albuterol 2.5 Mg/3 Ml Neb) 2.5 mg INHALATION ONCE PRN PRN Reason: WHEEZING Albuterol/Ipratropium (Ipratropium-Albuterol 3 Ml Neb) 3 ml INHALATION Q6H PRN PRN Reason: SHORTNESS OF BREATH Ceftriaxone Sodium (Ceftriaxone 2,000 Mg Sdv) 2,000 mg IVP Q24H CARLOS; Protocol Dexamethasone (Dexamethasone 4 Mg/Ml Inj) 4 mg IVP Q5M PRN PRN Reason: Nausea unrelieved by Reglan Stop: 10/01/24 19:36 Famotidine (Famotidine 20 Mg/2 Ml Inj) 20 mg IVP ONCE PRN PRN Reason: HEARTBURN Fentanyl (Fentanyl 50 Mcg/Ml Inj 2ml) 50 mcg IVP Q10M PRN PRN Reason: Preop Pain Fentanyl (Fentanyl 50 Mcg/Ml Inj 2ml) 100 mcg IVP ONCE PRN PRN Reason: Per anesthesia for block Fentanyl (Fentanyl 50 Mcg/Ml Inj 2ml) 50 mcg IVP Q5M PRN PRN Reason: Pain level 6-10 PACU Phase I Stop: 10/01/24 19:36 Furosemide (Furosemide 10 Mg/Ml Sdv 2ml) 20 mg IVP ONCE ONE Stop: 10/01/24 09:01 Heparin Sodium (Porcine) (Heparin 5,000 Unit/Ml Inj 1 Ml) 5,000 unit SUBCUT Q12H [facility] Last Admin: 09/30/24 22:05 Dose: 5,000 unit Hydromorphone HCl (Hydromorphone 1 Mg/Ml Inj 1ml) 0.25 mg IVP Q10M PRN PRN Reason: Pain level 4-6 PACU Phase I Stop: 10/01/24 19:36 Hydromorphone HCl (Hydromorphone 1 Mg/Ml Inj 1ml) 0.5 mg IVP Q10M PRN PRN Reason: Pain level 7-10 PACU Phase I Stop: 10/01/24 19:36 Norepinephrine Bitartrate (Levophed) 4 mg in 250 mls @ 0 mls/hr IV .Q0M CARLOS; Protocol Sodium Chloride (Sodium Chloride 0.9%) 1,000 mls @ 100 mls/hr IV .Q10H [facility]LOS Stop: 10/01/24 19:44 Last Admin: 09/30/24 22:37 Dose: 100 mls/hr Sodium Chloride (Sodium Chloride 0.9%) 500 mls @ 999 mls/hr IV .Q31M PRN PRN Reason: HYPOTENSION Fentanyl (Sublimaze) 1,000 mcg in 100 mls @ 0 mls/hr IV .Q0M [facility]; Protocol Last Titration: 09/30/24 22:43 Dose: 100 mcg/hr, 10 mls/hr Midazolam HCl (Versed) 100 mg in 100 mls @ 0 mls/hr IV .Q0M [facility]; Protocol Last Titration: 09/30/24 22:33 Dose: 3 mg/hr, 3 mls/hr Clindamycin HCl/Dextrose (Cleocin) 900 mg in 50 mls @ 100 mls/hr IV Q8H [facility]; Protocol Metronidazole (Flagyl Iv) 500 mg in 100 mls @ 100 mls/hr IV Q8H [facility]; Protocol Micafungin Sodium 50 mg/ (Sodium Chloride) 100 mls @ 100 mls/hr IV Q24H [facility] Ipratropium [place] (Ipratropium 0.5 Mg/2.5 Ml Neb) 0.5 mg INHALATION ONCE PRN PRN Reason: WHEEZING Lidocaine HCl (Lidocaine 1% Inj 20 Ml) 0.1 ml INTRADERMA PRN PRN PRN Reason: anesthetic prior to IV start Stop: 10/01/24 19:35 Meperidine HCl (Meperidine 50 Mg/Ml Inj) 12.5 mg IVP Q5M PRN PRN Reason: Shivering PACU Phase I Stop: 10/01/24 19:36 Metoclopramide HCl (Metoclopramide 5 Mg/Ml Sdv 2 Ml) 10 mg IVP ONCE PRN PRN Reason: N/V if zofran ineffective Metoclopramide HCl (Metoclopramide 5 Mg/Ml Sdv 2 Ml) 10 mg IVP Q5M PRN PRN Reason: Nausea unrelieved by Zofran Stop: 10/01/24 19:36 Midazolam HCl (Midazolam 1 Mg/Ml Inj 2 Ml) 2 mg IVP Q5M PRN PRN Reason: Preop Anxiety Midazolam HCl (Midazolam 1 Mg/Ml Inj 5 Ml) 5 mg IVP ONCE PRN PRN Reason: Per anesthesia for block Ondansetron HCl (Ondansetron 2 Mg/Ml Sdv 2 Ml) 4 mg IVP Q5M PRN PRN Reason: NAUSEA AND VOMITING Ondansetron HCl (Ondansetron 2 Mg/Ml Sdv 2 Ml) 4 mg IVP Q5M PRN PRN Reason: Nausea PACU Phase I Stop: 10/01/24 19:36 Ondansetron HCl (Ondansetron 2 Mg/Ml Sdv 2 Ml) 4 mg IVP Q15M PRN PRN Reason: Nausea/Vomiting PACU PHASE II Ondansetron HCl (Ondansetron 2 Mg/Ml Sdv 2 Ml) 4 mg IVP Q6H PRN PRN Reason: NAUSEA AND VOMITING Pantoprazole Sodium (Pantoprazole 40 Mg Sdv) 40 mg IVP BID [facility] Potassium Chloride (Potassium Chloride Er 20 Meq Tablet) 20 meq PO BEDTIME [facility] Last Admin: 09/30/24 22:40 Dose: Not Given Scopolamine (Scopolamine 1 Mg Patch) 1 patch TRANSDERMA ONCE PRN PRN Reason: Nausea/ Vomiting Prophylaxis Discontinued Medications Cefepime HCl (Cefepime 2,000 Mg Sdv) 2,000 mg IVP Q12H [facility]; Protocol Ceftriaxone Sodium (Ceftriaxone 2,000 Mg Sdv) 2,000 mg IVP ONCE ONE Stop: 09/30/24 15:31 Last Admin: 09/30/24 15:43 Dose: 2,000 mg Fentanyl (Fentanyl 50 Mcg/Ml Inj 2ml) 25 mcg IVP ONCE ONE Stop: 09/30/24 18:25 Last Admin: 09/30/24 18:38 Dose: 25 mcg Fentanyl (Fentanyl 50 Mcg/Ml Inj 2ml) Confirm Administered Dose 100 mcg .ROUTE .[facility] ONE Stop: 09/30/24 19:53 Sodium Chloride (Sodium Chloride 0.9%) 3,633.27 mls @ 3,633.27 mls/hr 30 ml/kg infuse over 1 hr (3633.27 ml) IV .Q1H ONE Stop: 09/30/24 16:15 Last Infusion: 09/30/24 17:00 Dose: Infused Metronidazole (Flagyl Iv) 500 mg in 100 mls @ 100 mls/hr IV ONCE ONE Stop: 09/30/24 16:17 Last Infusion: 09/30/24 17:00 Dose: Infused Linezolid (Zyvox Premix) 600 mg in 300 mls @ 300 mls/hr IV ONCE ONE; Protocol Stop: 09/30/24 16:28 Last Infusion: 09/30/24 18:10 Dose: Infused Clindamycin HCl/Dextrose (Cleocin) 600 mg in 50 mls @ 100 mls/hr IV ONCE ONE; Protocol Stop: 09/30/24 18:50 Last Infusion: 09/30/24 20:55 Dose: Infused Piperacillin Sod/Tazobactam (Sod 3.375 gm/ Sodium Chloride) 50 mls @ 100 mls/hr IV ONCE ONE; Protocol Stop: 09/30/24 21:06 Last Admin: 09/30/24 23:15 Dose: 100 mls/hr Vancomycin HCl 1,000 mg/ (Sodium Chloride) 250 mls @ 250 mls/hr IV ONCE ONE; Protocol Stop: 09/30/24 21:37 Last Admin: 09/30/24 22:23 Dose: Not Given Micafungin Sodium 150 mg/ (Sodium Chloride) 100 mls @ 100 mls/hr IV ONCE ONE Stop: 09/30/24 23:09 Sodium Chloride (Sodium Chloride 0.9% (Plus)) Confirm Administered Dose 50 mls @ as directed .ROUTE .STK-MED ONE Stop: 09/30/24 23:15 Iohexol (Iohexol 350 Mg/Ml 500 Ml Btl (Per Ml)) 0 ml IV ONCE ONE Stop: 09/30/24 15:09 Last Admin: 09/30/24 15:08 Dose: 100 ml Ketamine HCl (Ketamine 50 Mg/Ml Syr 1 Ml) Confirm Administered Dose 50 mg .ROUTE .STK-MED ONE Stop: 09/30/24 19:46 Lidocaine HCl (Lidocaine 2% Inj 20 Ml) Confirm Administered Dose 20 ml .ROUTE .STK-MED ONE Stop: 09/30/24 19:53 Lorazepam (Lorazepam 2 Mg/Ml Inj 1 Ml) 1 mg IVP ONCE ONE Stop: 09/30/24 18:25 Last Admin: 09/30/24 18:36 Dose: 1 mg Midazolam HCl (Midazolam 1 Mg/Ml Inj 2 Ml) Confirm Administered Dose 2 mg .ROUTE .STK-MED ONE Stop: 09/30/24 19:53 Norepinephrine Bitartrate (Norepinephrine 1 Mg/Ml Sdv 4 Ml) Confirm Administered Dose 4 mg .ROUTE .STK-MED ONE Stop: 09/30/24 19:46 Ondansetron HCl (Ondansetron 2 Mg/Ml Sdv 2 Ml) 4 mg IVP ONCE ONE Stop: 09/30/24 18:25 Last Admin: 09/30/24 18:32 Dose: 4 mg Piperacillin Sod/Tazobactam Sod (Piperacillin-Tazobactam 3.375 Gm Sdv) Confirm Administered Dose 3.375 gm .ROUTE .STK-MED ONE Stop: 09/30/24 23:13 Propofol (Propofol 10 Mg/Ml Sdv 20 Ml) Confirm Administered Dose 200 mg .ROUTE .STK-MED ONE Stop: 09/30/24 19:53 Propofol (Propofol 10 Mg/Ml Sdv 20 Ml) 20 mg IVP ONCE ONE Stop: 09/30/24 22:26 Last Admin: 09/30/24 22:41 Dose: 20 mg Propofol (Propofol 10 Mg/Ml Sdv 20 Ml) Confirm Administered Dose 200 mg .ROUTE .STK-MED ONE Stop: 09/30/24 22:27 Rocuronium [place] (Rocuronium 10 Mg/Ml Inj 5ml) Confirm Administered Dose 100 mg .ROUTE .STK-MED ONE Stop: 09/30/24 19:53 Allergies levofloxacin (From Levaquin) Allergy (Unknown, Verified 09/30/24 14:06) Unknown azithromycin Allergy (Verified 09/30/24 14:06) Unknown Penicillins Allergy (Verified 09/30/24 14:06) Unknown tramadol (From Ultram) Allergy (Verified 09/30/24 14:06) Unknown vancomycin Allergy (Verified 09/30/24 14:06) Unknown amoxicillin Adverse Reaction (Unknown, Verified 09/30/24 14:06) ADR-Seizure when she was an infant Home Medications furosemide 20 mg tablet 20 mg PO BID PRN edima 04/12/20 [History Confirmed 09/30/24] gabapentin 600 mg tablet 600 mg PO BEDTIME 04/12/20 [History Confirmed 09/30/24] potassium chloride 10 mEq capsule,extended release 20 meq PO BEDTIME 04/12/20 [History Confirmed 09/30/24] venlafaxine 150 mg capsule,extended release 24 hr 150 mg PO BEDTIME 04/12/20 [History Confirmed 09/30/24] ascorbic acid (vitamin C) 1,000 mg tablet 1,000 mg PO BID 10/27/20 [History Confirmed 09/30/24] baclofen 20 mg tablet 20 mg PO BEDTIME 02/26/23 [History Confirmed 09/30/24] trazodone 50 mg tablet 25 mg PO BEDTIME 09/24/23 [History Confirmed 09/30/24] cefdinir 300 mg capsule 300 mg PO DAILY 06/15/24 [History Confirmed 09/30/24] albuterol sulfate 1.25 mg/3 mL solution for nebulization 2.5 mg inhalation .Q4H PRN shortness of breath or wheezing 08/18/24 [History Confirmed 09/30/24] prothrombin time/INR test metr #30 ea 08/24/24 [Rx Confirmed 09/30/24] hydrocodone 5 mg-acetaminophen 325 mg tablet 1 tab PO Q4H PRN Pain 09/30/24 [History Confirmed 09/30/24] metoclopramide HCl 10 mg tablet 10 mg PO Q8H 09/30/24 [History Confirmed 09/30/24] ondansetron 8 mg disintegrating tablet 8 mg PO TID PRN Nausea And Vomiting 09/30/24 [History Confirmed 09/30/24] rivaroxaban 20 mg tablet (Xarelto) 20 mg PO QPM 09/30/24 [History Confirmed 09/30/24] Discharge Plan Discharge Patient Disposition: Xfer Other Condition: Stable Prescriptions: No Action gabapentin 600 mg tablet 600 mg PO BEDTIME furosemide 20 mg tablet 20 mg PO BID PRN (Reason: edima) potassium chloride 10 mEq capsule, extended release 20 meq PO BEDTIME venlafaxine 150 mg capsule,extended release 24hr 150 mg PO BEDTIME ascorbic acid (vitamin C) 1,000 mg tablet 1,000 mg PO BID trazodone 50 mg tablet 25 mg PO BEDTIME albuterol sulfate 1.25 mg/3 mL solution for nebulization 2.5 mg inhalation .Q4H PRN (Reason: shortness of breath or wheezing) (DME) prothrombin time/INR test metr Misc See Rx Instructions .Route Qty: 30 0RF Rx Instructions: As directed- INR strips hydrocodone-acetaminophen 5-325 mg tablet 1 tab PO Q4H PRN (Reason: Pain) ondansetron 8 mg tablet,disintegrating 8 mg PO TID PRN (Reason: Nausea And Vomiting) metoclopramide HCl 10 mg tablet 10 mg PO Q8H Rx Instructions: [id number] Xarelto 20 mg tablet 20 mg PO QPM baclofen 20 mg tablet 20 mg PO BEDTIME cefdinir 300 mg capsule 300 mg PO DAILY Discharge Orders: Transfer Out of Facility (Order); Ordered 09/30/24 Ordered By: Trever Smith Referrals: Marcus Benson MD [Primary Care Provider] - Patient Instructions: Opioid Safety Transfer Attestations Time Spent in Transfer Care: greater than 30 min Quality Metrics Clinical Quality Measures [ No reported AMI, CVA or VTE this stay] Coding Level of Care Code Acute Code for Chg Fwd Diagnoses Ventral incisional hernia K43.2 Parastomal hernia K43.[address] Z93.3 BMI 50.0-59.9, adult Z68.43 Chronic anticoagulation Z79.01 Shock R57.9 Neurogenic bladder N31.9 Chronic osteomyelitis M86.60 Septic shock A41.9; R65.21 Groin hematoma S30.1XXA 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
[2024-10-01 00:01] VITALS: BP 92/67; PULSE 118; O2SAT 97
[2024-10-01 00:16] VITALS: BP 92/74; PULSE 116; O2SAT 98
[2024-10-01] MEDS: micafungin 150 MG in sodium chloride 0.9% (100 ml) 100 ML 100 MG IV (00:25)
[2024-10-01 00:29] VITALS: RESP 16; O2SAT 97
[2024-10-01 00:30] VITALS: BP 92/74; PULSE 115; O2SAT 98
--- NOTE | 2024-10-01 00:40 | PC.NURSE ---
Zosyn, Micafungin Zosyn and Micafungin administered late due to medication not being available at local [facility]. Pharmacy contacted and medications sourced from supervisor advice.
[2024-10-01 00:45] VITALS: BP 88/72; PULSE 106; RESP 17; TEMP 37.7; O2SAT 98
--- NOTE | 2024-10-01 01:20 | PC.NURSE ---
Transfer Patient accepted at [facility] by Dr. Rodrigez to surgical ICU room 4403. Report called to NISHANT Saunders at 2315. Air evac accepted for transfer and arrived at 2324. Patient unable to fit inside helicopter; second air evac flight crew with wider aircraft accepted transfer. Second air flight crew arrived at 0030. Patient's family at bedside periodically and updated on care plan.
--- NOTE | 2024-10-01 01:24 | PC.NURSE ---
Addendum entered by Snow Joyner RN 10/01/24 01:25: all vital signs stable; fentanyl drip sent with flight crew. Family aware of ETA. Original Note: Air Evac Patient left with air evac crew at 0112. [facility].
--- NOTE | 2024-10-01 01:30 | PC.NURSE ---
Addendum entered by Ari Demarco RN 10/01/24 01:31: Waste witnessed by this nurse. Original Note: Versed Waste 89 ml of versed wasted with NISHANT Chapman.
[2024-10-01 02:17] VITALS: BP 108/54; PULSE 112; RESP 16; TEMP 37.7; O2SAT 98
[2024-10-01 08:03] LABS: Glucose Point of Care 137 mg/dL (70-110)
== END 2024-10-01 01:15 | disposition short-term general hospital (02) | DRG 853 ==
LOC: ER 19:23 → OPS 20:00 → ICU 20:55
PROVIDERS: Internal Medicine; Admitting Provider Student in an Organized Health Care Education/Training Program; Emergency Provider Family Medicine; PCP Family Medicine; Visit Provider Student in an Organized Health Care Education/Training Program
PROC: 0JB80ZZ Excision of Abdomen Subcutaneous Tissue and Fascia, Open Approach (ICD-10-PCS; principal; 2024-09-30 20:00)
DX: A41.9 Sepsis, unspecified organism (principal); J96.00 Acute respiratory failure, unspecified whether with hypoxia or hypercapnia; R65.21 Severe sepsis with septic shock; M72.6 Necrotizing fasciitis; G82.20 Paraplegia, unspecified; K63.2 Fistula of intestine; M46.28 Osteomyelitis of vertebra, sacral and sacrococcygeal region; E87.1 Hypo-osmolality and hyponatremia; Z68.42 Body mass index [BMI] 45.0-49.9, adult; K43.2 Incisional hernia without obstruction or gangrene; K43.5 Parastomal hernia without obstruction or gangrene; N31.9 Neuromuscular dysfunction of bladder, unspecified; F32.A Depression, unspecified; E66.01 Morbid (severe) obesity due to excess calories; Z93.3 Colostomy status; Z86.718 Personal history of other venous thrombosis and embolism; Z79.01 Long term (current) use of anticoagulants; Z86.711 Personal history of pulmonary embolism
CPT/HCPCS: 36415; 36416; 36600; 71045; 74177; 80048; 80051; 80053; 81001; 82330; 82805; 82962; 83605; 83690; 83735; 84145; 85025; 87040; 87070; 87075; 87077; 87086; 87176; 87186; 87205; 94799; 96365; 96366; 96367; 96368; 96372; 96375; 99291; 99292; J0696; J1644; J2020; J2060; J2248; J2250; J2405; J2543; J2704; J3010; J3490; J7030; J9999

== ENCOUNTER 2024-11-02 13:05 | Oncology outpatient (recurring) (ONCR) | payer OTHER, MEDICAID, SELFPAY ==
[2024-11-02 13:51] LABS: Basophils # 0.1 10^3/uL (0.0-0.1); Basophils % 0.8 %; Eosinophils # 0.5 10^3/uL (0.0-0.8); Eosinophils % 5.1 %; Hematocrit 40.3 % (36-47); Lymphocytes # 2.1 10^3/uL (0.8-4.8); Lymphocytes % 22.4 %; Mean Corpuscular HGB Conc 30.5 g/dL (30-55); Mean Corpuscular Hemoglobin 29.6 pg (27-33); Mean Corpuscular Volume 97.1 fl (85-98); Mean Platelet Volume 10.2 fL (7.4-10.4); Monocytes # 0.6 10^3/uL (0.2-0.9); Monocytes % 6.8 %; Neutrophils # 5.95 10^3/uL (1.8-7.7); Neutrophils % 64.4 %; Nucleated Red Blood Cells % 0 %; Platelet Count 596 10^3/cmm (157-399); Red Blood Count 4.15 10^6/uL (3.85-5.65); Red Cell Distribution Width 17.2 % (12.1-15.1); White Blood Count 9.24 10^3/uL (3.29-11.43)
[2024-11-02 14:12] LABS: Alanine Aminotransferase 74 U/L (0-33); Albumin Level 3.1 g/dL (3.5-5.2); Alkaline Phosphatase 311 U/L (35-105); Aspartate Amino Transferase 49 U/L (0-32); Blood Urea Nitrogen 21 mg/dL (6-20); Calcium 8.7 mg/dL (8.5-10.5); Carbon Dioxide 25 mmol/L (22-29); Chloride 102 mmol/L (98-107); Globulin 4.4 g/dL (1.3-4.6); Glomerular Filtration Rate 165.1 mL/min (90-130); Glucose 124 mg/dL (65-115); Magnesium 1.7 mg/dL (1.7-2.3); Osmolality Calculated 286 mOsm/kg (285-295); Phosphorus 2.7 mg/dL (2.5-4.5); Sodium 136 mmol/L (136-145); Total Bilirubin 0.4 mg/dL (0.15-1.2); Total Protein 7.5 g/dL (6.6-8.7)
== END 2024-11-04 23:59 | disposition home or self-care (01) ==
PROVIDERS: PCP Family Medicine; Visit Provider Family Medicine
DX: M72.6 Necrotizing fasciitis (principal); L98.6 Other infiltrative disorders of the skin and subcutaneous tissue; Z86.718 Personal history of other venous thrombosis and embolism
CPT/HCPCS: 36592; 80053; 83735; 84100; 85025; 99214

== ENCOUNTER → 2024-11-19 12:59 | Outpatient (BNVA) | payer OTHER, MEDICAID, SELFPAY | PROVIDERS: PCP Family Medicine; Visit Provider Thoracic Surgery (Cardiothoracic Vascular Surgery) | DX: I96 Gangrene, not elsewhere classified (principal); L89.152 Pressure ulcer of sacral region, stage 2; T81.31XD Disruption of external operation (surgical) wound, not elsewhere classified, subsequent encounter; Y83.8 Other surgical procedures as the cause of abnormal reaction of the patient, or of later complication, without mention of misadventure at the time of the procedure | CPT/HCPCS: 11042; 97597; 97598; A6210 ==

== ENCOUNTER → 2024-11-26 14:05 | Outpatient (BNVA) | payer OTHER, MEDICAID, SELFPAY | PROVIDERS: PCP Family Medicine; Visit Provider Thoracic Surgery (Cardiothoracic Vascular Surgery) | DX: I96 Gangrene, not elsewhere classified (principal); T81.31XD Disruption of external operation (surgical) wound, not elsewhere classified, subsequent encounter; Y83.8 Other surgical procedures as the cause of abnormal reaction of the patient, or of later complication, without mention of misadventure at the time of the procedure; L89.152 Pressure ulcer of sacral region, stage 2 | CPT/HCPCS: 97597; 97598; A6210; A6253 ==

== ENCOUNTER 2024-12-01 13:30 | Oncology outpatient (recurring) (ONCR) | payer OTHER, MEDICAID, SELFPAY ==
[2024-11-09 14:24] LABS: Basophils % 0.3 %; Eosinophils # 0.2 10^3/uL (0.0-0.8); Eosinophils % 1.9 %; Hematocrit 41.1 % (36-47); Lymphocytes # 1.2 10^3/uL (0.8-4.8); Lymphocytes % 10.5 %; Mean Corpuscular HGB Conc 30.9 g/dL (30-55); Mean Corpuscular Hemoglobin 30.2 pg (27-33); Mean Corpuscular Volume 97.6 fl (85-98); Mean Platelet Volume 10.5 fL (7.4-10.4); Monocytes # 0.7 10^3/uL (0.2-0.9); Nucleated Red Blood Cells % 0 %; Platelet Count 527 10^3/cmm (157-399); Red Blood Count 4.21 10^6/uL (3.85-5.65); Red Cell Distribution Width 16.5 % (12.1-15.1); White Blood Count 11.73 10^3/uL (3.29-11.43)
[2024-11-09 14:43] LABS: Alanine Aminotransferase 75 U/L (0-33); Albumin Level 3.1 g/dL (3.5-5.2); Alkaline Phosphatase 314 U/L (35-105); Anion Gap 10.8 (5-19); Aspartate Amino Transferase 39 U/L (0-32); Blood Urea Nitrogen 21 mg/dL (6-20); Calcium 8.8 mg/dL (8.5-10.5); Carbon Dioxide 27 mmol/L (22-29); Chloride 105 mmol/L (98-107); Globulin 4.4 g/dL (1.3-4.6); Glomerular Filtration Rate 165.1 mL/min (90-130); Glucose 146 mg/dL (65-115); Magnesium 1.6 mg/dL (1.7-2.3); Osmolality Calculated 294 mOsm/kg (285-295); Phosphorus 2.5 mg/dL (2.5-4.5); Potassium 3.8 mmol/L (3.5-5.1); Sodium 139 mmol/L (136-145); Total Bilirubin 0.3 mg/dL (0.15-1.2); Total Protein 7.5 g/dL (6.6-8.7)
[2024-11-16 14:06] LABS: Basophils # 0.1 10^3/uL (0.0-0.1); Eosinophils # 0.5 10^3/uL (0.0-0.8); Eosinophils % 8.5 %; Hematocrit 38.5 % (36-47); Lymphocytes % 32.3 %; Mean Corpuscular HGB Conc 31.2 g/dL (30-55); Mean Corpuscular Hemoglobin 30.2 pg (27-33); Mean Corpuscular Volume 96.7 fl (85-98); Mean Platelet Volume 10.5 fL (7.4-10.4); Monocytes # 0.5 10^3/uL (0.2-0.9); Neutrophils # 3.04 10^3/uL (1.8-7.7); Neutrophils % 49.9 %; Nucleated Red Blood Cells % 0 %; Platelet Count 530 10^3/cmm (157-399); Red Blood Count 3.98 10^6/uL (3.85-5.65); Red Cell Distribution Width 15.8 % (12.1-15.1)
[2024-11-16 14:25] LABS: Alanine Aminotransferase 65 U/L (0-33); Albumin Level 2.9 g/dL (3.5-5.2); Alkaline Phosphatase 213 U/L (35-105); Anion Gap 13.6 (5-19); Aspartate Amino Transferase 40 U/L (0-32); Blood Urea Nitrogen 20 mg/dL (6-20); Calcium 8.7 mg/dL (8.5-10.5); Carbon Dioxide 23 mmol/L (22-29); Chloride 107 mmol/L (98-107); Glomerular Filtration Rate 230.1 mL/min (90-130); Glucose 101 mg/dL (65-115); Magnesium 1.6 mg/dL (1.7-2.3); Osmolality Calculated 293 mOsm/kg (285-295); Potassium 3.6 mmol/L (3.5-5.1); Sodium 140 mmol/L (136-145); Total Bilirubin 0.2 mg/dL (0.15-1.2); Total Protein 6.9 g/dL (6.6-8.7)
--- NOTE | 2024-11-23 13:51 | PC.NURSE ---
Please fax lab results to [facility]. Tyglyceride labs not approved by insurance and were not drawn.
[2024-11-23 13:59] LABS: Basophils % 0.6 %; Eosinophils # 0.4 10^3/uL (0.0-0.8); Eosinophils % 6.4 %; Hematocrit 38.5 % (36-47); Lymphocytes # 1.9 10^3/uL (0.8-4.8); Lymphocytes % 28.4 %; Mean Corpuscular HGB Conc 31.4 g/dL (30-55); Mean Corpuscular Hemoglobin 30.3 pg (27-33); Mean Corpuscular Volume 96.5 fl (85-98); Mean Platelet Volume 10.6 fL (7.4-10.4); Monocytes # 0.6 10^3/uL (0.2-0.9); Monocytes % 8.2 %; Neutrophils # 3.75 10^3/uL (1.8-7.7); Neutrophils % 56.1 %; Nucleated Red Blood Cells % 0 %; Platelet Count 493 10^3/cmm (157-399); Red Blood Count 3.99 10^6/uL (3.85-5.65); Red Cell Distribution Width 15.4 % (12.1-15.1); White Blood Count 6.69 10^3/uL (3.29-11.43)
[2024-11-23 14:17] LABS: Alanine Aminotransferase 78 U/L (0-33); Alkaline Phosphatase 237 U/L (35-105); Anion Gap 14.8 (5-19); Aspartate Amino Transferase 57 U/L (0-32); Blood Urea Nitrogen 23 mg/dL (6-20); Calcium 8.7 mg/dL (8.5-10.5); Carbon Dioxide 23 mmol/L (22-29); Chloride 105 mmol/L (98-107); Globulin 4.2 g/dL (1.3-4.6); Glomerular Filtration Rate 165.1 mL/min (90-130); Glucose 105 mg/dL (65-115); Magnesium 1.6 mg/dL (1.7-2.3); Osmolality Calculated 292 mOsm/kg (285-295); Phosphorus 2.9 mg/dL (2.5-4.5); Potassium 3.8 mmol/L (3.5-5.1); Sodium 139 mmol/L (136-145); Total Bilirubin 0.3 mg/dL (0.15-1.2); Total Protein 7.2 g/dL (6.6-8.7)
[2024-12-01 14:00] LABS: Basophils # 0.1 10^3/uL (0.0-0.1); Basophils % 0.8 %; Eosinophils # 0.4 10^3/uL (0.0-0.8); Eosinophils % 5.8 %; Hematocrit 39.3 % (36-47); Lymphocytes # 1.6 10^3/uL (0.8-4.8); Lymphocytes % 26.5 %; Mean Corpuscular HGB Conc 31.8 g/dL (30-55); Mean Corpuscular Hemoglobin 30.3 pg (27-33); Mean Corpuscular Volume 95.4 fl (85-98); Mean Platelet Volume 10.7 fL (7.4-10.4); Monocytes # 0.5 10^3/uL (0.2-0.9); Monocytes % 7.4 %; Neutrophils # 3.66 10^3/uL (1.8-7.7); Neutrophils % 59.3 %; Nucleated Red Blood Cells % 0 %; Platelet Count 489 10^3/cmm (157-399); Red Blood Count 4.12 10^6/uL (3.85-5.65); Red Cell Distribution Width 14.8 % (12.1-15.1); White Blood Count 6.18 10^3/uL (3.29-11.43)
[2024-12-01 14:18] LABS: Alanine Aminotransferase 71 U/L (0-33); Alkaline Phosphatase 240 U/L (35-105); Aspartate Amino Transferase 53 U/L (0-32); Blood Urea Nitrogen 26 mg/dL (6-20); Calcium 8.8 mg/dL (8.5-10.5); Carbon Dioxide 24 mmol/L (22-29); Chloride 104 mmol/L (98-107); Globulin 4.6 g/dL (1.3-4.6); Glomerular Filtration Rate 127.6 mL/min (90-130); Glucose 107 mg/dL (65-115); Magnesium 1.8 mg/dL (1.7-2.3); Osmolality Calculated 289 mOsm/kg (285-295); Phosphorus 2.9 mg/dL (2.5-4.5); Sodium 137 mmol/L (136-145); Total Bilirubin 0.3 mg/dL (0.15-1.2); Total Protein 7.6 g/dL (6.6-8.7)
[2024-12-01 14:19] LABS: Anion Gap 12.9 (5-19); Potassium 3.9 mmol/L (3.5-5.1)
== END 2024-12-05 23:59 | disposition home or self-care (01) ==
PROVIDERS: Family Medicine; PCP Family Medicine; Visit Provider Family Medicine
DX: Z53.9 Procedure and treatment not carried out, unspecified reason (principal); M72.6 Necrotizing fasciitis; L98.8 Other specified disorders of the skin and subcutaneous tissue
CPT/HCPCS: 36592; 80053; 83735; 84100; 85025

== ENCOUNTER → 2024-12-03 12:41 | Outpatient (BNVA) | payer OTHER, MEDICAID, SELFPAY | PROVIDERS: PCP Family Medicine; Visit Provider Thoracic Surgery (Cardiothoracic Vascular Surgery) | DX: I96 Gangrene, not elsewhere classified (principal); L98.491 Non-pressure chronic ulcer of skin of other sites limited to breakdown of skin; L89.152 Pressure ulcer of sacral region, stage 2 | CPT/HCPCS: 97597; 97598; A6210 ==

== ENCOUNTER → 2024-12-10 13:10 | Outpatient (BNVA) | payer OTHER, MEDICAID, SELFPAY | PROVIDERS: PCP Family Medicine; Visit Provider Thoracic Surgery (Cardiothoracic Vascular Surgery) | DX: L89.152 Pressure ulcer of sacral region, stage 2 (principal); T81.31XD Disruption of external operation (surgical) wound, not elsewhere classified, subsequent encounter; Y83.8 Other surgical procedures as the cause of abnormal reaction of the patient, or of later complication, without mention of misadventure at the time of the procedure | CPT/HCPCS: 97597; 97598 ==

== ENCOUNTER 2025-01-04 13:15 | Oncology outpatient (recurring) (ONCR) | payer OTHER, MEDICAID, SELFPAY ==
[2024-12-08 15:51] LABS: Basophils % 0.6 %; Eosinophils # 0.4 10^3/uL (0.0-0.8); Eosinophils % 5.9 %; Lymphocytes # 1.7 10^3/uL (0.8-4.8); Lymphocytes % 27.5 %; Mean Corpuscular HGB Conc 31.5 g/dL (30-55); Mean Corpuscular Hemoglobin 30.1 pg (27-33); Mean Corpuscular Volume 95.7 fl (85-98); Mean Platelet Volume 11.1 fL (7.4-10.4); Monocytes # 0.5 10^3/uL (0.2-0.9); Monocytes % 8.1 %; Neutrophils # 3.62 10^3/uL (1.8-7.7); Neutrophils % 57.6 %; Nucleated Red Blood Cells % 0 %; Platelet Count 536 10^3/cmm (157-399); Red Blood Count 4.18 10^6/uL (3.85-5.65); Red Cell Distribution Width 14.4 % (12.1-15.1); White Blood Count 6.29 10^3/uL (3.29-11.43)
--- NOTE | 2024-12-08 15:53 | PC.NURSE ---
Changed pts central line dressing on right chest via sterile technique. Slight redness noted at insertion site. No signs of infection. Pt tolerated well.
[2024-12-08 16:38] LABS: Alanine Aminotransferase 74 U/L (0-33); Albumin Level 3.4 g/dL (3.5-5.2); Alkaline Phosphatase 229 U/L (35-105); Anion Gap 14.8 (5-19); Aspartate Amino Transferase 69 U/L (0-32); Blood Urea Nitrogen 23 mg/dL (6-20); Calcium 9.1 mg/dL (8.5-10.5); Carbon Dioxide 23 mmol/L (22-29); Chloride 105 mmol/L (98-107); Globulin 4.7 g/dL (1.3-4.6); Glomerular Filtration Rate 127.6 mL/min (90-130); Glucose 112 mg/dL (65-115); Magnesium 1.9 mg/dL (1.7-2.3); Osmolality Calculated 292 mOsm/kg (285-295); Phosphorus 2.6 mg/dL (2.5-4.5); Potassium 3.8 mmol/L (3.5-5.1); Sodium 139 mmol/L (136-145); Total Bilirubin 0.3 mg/dL (0.15-1.2); Total Protein 8.1 g/dL (6.6-8.7)
[2024-12-14 14:08] LABS: Basophils % 0.5 %; Eosinophils # 0.5 10^3/uL (0.0-0.8); Eosinophils % 7.9 %; Hematocrit 39.8 % (36-47); Lymphocytes # 1.8 10^3/uL (0.8-4.8); Lymphocytes % 28.8 %; Mean Corpuscular HGB Conc 30.9 g/dL (30-55); Mean Corpuscular Hemoglobin 29.8 pg (27-33); Mean Corpuscular Volume 96.4 fl (85-98); Mean Platelet Volume 11.1 fL (7.4-10.4); Monocytes # 0.6 10^3/uL (0.2-0.9); Monocytes % 9.2 %; Neutrophils # 3.32 10^3/uL (1.8-7.7); Neutrophils % 53.3 %; Nucleated Red Blood Cells % 0 %; Platelet Count 459 10^3/cmm (157-399); Red Blood Count 4.13 10^6/uL (3.85-5.65); Red Cell Distribution Width 14.3 % (12.1-15.1); White Blood Count 6.22 10^3/uL (3.29-11.43)
[2024-12-14 14:30] LABS: Alanine Aminotransferase 82 U/L (0-33); Albumin Level 3.2 g/dL (3.5-5.2); Alkaline Phosphatase 208 U/L (35-105); Anion Gap 17.6 (5-19); Aspartate Amino Transferase 63 U/L (0-32); Blood Urea Nitrogen 25 mg/dL (6-20); Calcium 8.9 mg/dL (8.5-10.5); Carbon Dioxide 22 mmol/L (22-29); Chloride 108 mmol/L (98-107); Globulin 4.3 g/dL (1.3-4.6); Glomerular Filtration Rate 165.1 mL/min (90-130); Glucose 92 mg/dL (65-115); Magnesium 1.7 mg/dL (1.7-2.3); Osmolality Calculated 300 mOsm/kg (285-295); Potassium 4.6 mmol/L (3.5-5.1); Sodium 143 mmol/L (136-145); Total Bilirubin 0.3 mg/dL (0.15-1.2); Total Protein 7.5 g/dL (6.6-8.7)
[2024-12-21 13:28] LABS: Basophils % 0.5 %; Eosinophils # 0.4 10^3/uL (0.0-0.8); Hematocrit 39.9 % (36-47); Lymphocytes # 1.8 10^3/uL (0.8-4.8); Lymphocytes % 27.3 %; Mean Corpuscular HGB Conc 31.8 g/dL (30-55); Mean Corpuscular Volume 94.1 fl (85-98); Monocytes # 0.6 10^3/uL (0.2-0.9); Monocytes % 8.7 %; Neutrophils % 57.3 %; Nucleated Red Blood Cells % 0 %; Platelet Count 472 10^3/cmm (157-399); Red Blood Count 4.24 10^6/uL (3.85-5.65); Red Cell Distribution Width 14.1 % (12.1-15.1); White Blood Count 6.63 10^3/uL (3.29-11.43)
[2024-12-21 13:44] LABS: Alanine Aminotransferase 107 U/L (0-33); Albumin Level 3.3 g/dL (3.5-5.2); Alkaline Phosphatase 198 U/L (35-105); Anion Gap 14.7 (5-19); Aspartate Amino Transferase 74 U/L (0-32); Blood Urea Nitrogen 22 mg/dL (6-20); Carbon Dioxide 24 mmol/L (22-29); Chloride 103 mmol/L (98-107); Globulin 4.5 g/dL (1.3-4.6); Glomerular Filtration Rate 127.6 mL/min (90-130); Glucose 101 mg/dL (65-115); Magnesium 1.8 mg/dL (1.7-2.3); Osmolality Calculated 289 mOsm/kg (285-295); Phosphorus 2.8 mg/dL (2.5-4.5); Potassium 3.7 mmol/L (3.5-5.1); Sodium 138 mmol/L (136-145); Total Bilirubin 0.2 mg/dL (0.15-1.2); Total Protein 7.8 g/dL (6.6-8.7)
[2024-12-28 13:55] LABS: Basophils % 0.7 %; Eosinophils # 0.3 10^3/uL (0.0-0.8); Eosinophils % 5.5 %; Hematocrit 38.4 % (36-47); Lymphocytes # 1.7 10^3/uL (0.8-4.8); Mean Corpuscular HGB Conc 31.3 g/dL (30-55); Mean Corpuscular Hemoglobin 29.6 pg (27-33); Mean Corpuscular Volume 94.6 fl (85-98); Mean Platelet Volume 11.3 fL (7.4-10.4); Monocytes # 0.5 10^3/uL (0.2-0.9); Monocytes % 8.5 %; Neutrophils # 3.44 10^3/uL (1.8-7.7); Neutrophils % 57.1 %; Nucleated Red Blood Cells % 0 %; Platelet Count 437 10^3/cmm (157-399); Red Blood Count 4.06 10^6/uL (3.85-5.65); Red Cell Distribution Width 14.2 % (12.1-15.1); White Blood Count 6.01 10^3/uL (3.29-11.43)
[2024-12-28 14:58] LABS: Alanine Aminotransferase 57 U/L (0-33); Albumin Level 3.3 g/dL (3.5-5.2); Alkaline Phosphatase 170 U/L (35-105); Anion Gap 15.7 (5-19); Aspartate Amino Transferase 50 U/L (0-32); Blood Urea Nitrogen 23 mg/dL (6-20); Calcium 8.9 mg/dL (8.5-10.5); Carbon Dioxide 22 mmol/L (22-29); Chloride 105 mmol/L (98-107); Globulin 4.1 g/dL (1.3-4.6); Glomerular Filtration Rate 127.6 mL/min (90-130); Glucose 89 mg/dL (65-115); Magnesium 1.8 mg/dL (1.7-2.3); Osmolality Calculated 291 mOsm/kg (285-295); Phosphorus 2.8 mg/dL (2.5-4.5); Potassium 3.7 mmol/L (3.5-5.1); Sodium 139 mmol/L (136-145); Total Bilirubin 0.2 mg/dL (0.15-1.2); Total Protein 7.4 g/dL (6.6-8.7); Triglycerides 111 mg/dL (0-150)
[2025-01-04 13:21] LABS: Basophils % 0.5 %; Eosinophils # 0.4 10^3/uL (0.0-0.8); Eosinophils % 6.3 %; Lymphocytes # 1.5 10^3/uL (0.8-4.8); Lymphocytes % 27.9 %; Mean Corpuscular HGB Conc 32.1 g/dL (30-55); Mean Corpuscular Hemoglobin 30.7 pg (27-33); Mean Corpuscular Volume 95.5 fl (85-98); Mean Platelet Volume 11.1 fL (7.4-10.4); Monocytes # 0.5 10^3/uL (0.2-0.9); Monocytes % 9.8 %; Neutrophils # 3.05 10^3/uL (1.8-7.7); Neutrophils % 55.3 %; Nucleated Red Blood Cells % 0 %; Platelet Count 440 10^3/cmm (157-399); Red Blood Count 3.98 10^6/uL (3.85-5.65); Red Cell Distribution Width 14.1 % (12.1-15.1); White Blood Count 5.52 10^3/uL (3.29-11.43)
[2025-01-04 13:37] LABS: Alanine Aminotransferase 57 U/L (0-33); Albumin Level 3.1 g/dL (3.5-5.2); Alkaline Phosphatase 187 U/L (35-105); Blood Urea Nitrogen 28 mg/dL (6-20); Carbon Dioxide 24 mmol/L (22-29); Chloride 106 mmol/L (98-107); Globulin 4.6 g/dL (1.3-4.6); Glomerular Filtration Rate 127.6 mL/min (90-130); Glucose 98 mg/dL (65-115); Magnesium 1.9 mg/dL (1.7-2.3); Osmolality Calculated 293 mOsm/kg (285-295); Phosphorus 2.8 mg/dL (2.5-4.5); Sodium 139 mmol/L (136-145); Total Bilirubin 0.2 mg/dL (0.15-1.2); Total Protein 7.7 g/dL (6.6-8.7); Triglycerides 90 mg/dL (0-150)
[2025-01-04 13:50] LABS: Aspartate Amino Transferase 47 U/L (0-32)
== END 2025-01-04 23:59 | disposition home or self-care (01) ==
PROVIDERS: PCP Family Medicine; Visit Provider Family Medicine
DX: Z53.9 Procedure and treatment not carried out, unspecified reason; A41.9 Sepsis, unspecified organism; R65.21 Severe sepsis with septic shock; L89.153 Pressure ulcer of sacral region, stage 3; M72.6 Necrotizing fasciitis; R57.8 Other shock
CPT/HCPCS: 36592; 80053; 83735; 84100; 84478; 85025; 97597; 97598; A6021; A6210

== ENCOUNTER 2025-02-01 13:15 | Oncology outpatient (recurring) (ONCR) | payer OTHER, MEDICAID, SELFPAY ==
[2025-01-11 12:55] LABS: Hematocrit 37.7 % (36-47); Hemoglobin 12.00 g/dL (11.27-16.99); Mean Corpuscular HGB Conc 31.8 g/dL (30-55); Mean Corpuscular Hemoglobin 30.2 pg (27-33); Mean Corpuscular Volume 95.0 fl (85-98); Nucleated Red Blood Cells % 0 %; Platelet Count 417 10^3/cmm (157-399); Red Blood Count 3.97 10^6/uL (3.85-5.65); White Blood Count 6.15 10^3/uL (3.29-11.43)
[2025-01-11 13:18] LABS: Alanine Aminotransferase 54 U/L (0-33); Albumin Level 3.1 g/dL (3.5-5.2); Alkaline Phosphatase 214 U/L (35-105); Anion Gap 11.8 (5-19); Aspartate Amino Transferase 48 U/L (0-32); Blood Urea Nitrogen 29 mg/dL (6-20); Calcium 8.9 mg/dL (8.5-10.5); Carbon Dioxide 25 mmol/L (22-29); Chloride 106 mmol/L (98-107); Globulin 4.3 g/dL (1.3-4.6); Glucose 104 mg/dL (65-115); Magnesium 2.0 mg/dL (1.7-2.3); Osmolality Calculated 294 mOsm/kg (285-295); Potassium 3.8 mmol/L (3.5-5.1); Sodium 139 mmol/L (136-145); Total Protein 7.4 g/dL (6.6-8.7)
[2025-01-18 14:08] LABS: Hematocrit 39.1 % (36-47); Hemoglobin 12.50 g/dL (11.27-16.99); Mean Corpuscular HGB Conc 32.0 g/dL (30-55); Mean Corpuscular Hemoglobin 30.4 pg (27-33); Mean Corpuscular Volume 95.1 fl (85-98); Nucleated Red Blood Cells % 0 %; Platelet Count 399 10^3/cmm (157-399); Red Blood Count 4.11 10^6/uL (3.85-5.65); White Blood Count 5.86 10^3/uL (3.29-11.43)
[2025-01-18 14:33] LABS: Alanine Aminotransferase 64 U/L (0-33); Albumin Level 3.2 g/dL (3.5-5.2); Alkaline Phosphatase 242 U/L (35-105); Anion Gap 14.1 (5-19); Aspartate Amino Transferase 56 U/L (0-32); Blood Urea Nitrogen 26 mg/dL (6-20); Calcium 9.0 mg/dL (8.5-10.5); Carbon Dioxide 25 mmol/L (22-29); Chloride 104 mmol/L (98-107); Globulin 4.9 g/dL (1.3-4.6); Glucose 77 mg/dL (65-115); Magnesium 1.9 mg/dL (1.7-2.3); Osmolality Calculated 292 mOsm/kg (285-295); Potassium 4.1 mmol/L (3.5-5.1); Sodium 139 mmol/L (136-145); Total Protein 8.1 g/dL (6.6-8.7); Triglycerides 99 mg/dL (0-150)
[2025-01-25 14:38] LABS: Hematocrit 37.8 % (36-47); Hemoglobin 12.00 g/dL (11.27-16.99); Mean Corpuscular HGB Conc 31.7 g/dL (30-55); Mean Corpuscular Hemoglobin 29.8 pg (27-33); Mean Corpuscular Volume 93.8 fl (85-98); Nucleated Red Blood Cells % 0 %; Platelet Count 416 10^3/cmm (157-399); Red Blood Count 4.03 10^6/uL (3.85-5.65); White Blood Count 5.55 10^3/uL (3.29-11.43)
[2025-01-25 14:52] LABS: Alanine Aminotransferase 55 U/L (0-33); Albumin Level 3.1 g/dL (3.5-5.2); Alkaline Phosphatase 201 U/L (35-105); Anion Gap 14.6 (5-19); Aspartate Amino Transferase 40 U/L (0-32); Carbon Dioxide 25 mmol/L (22-29); Chloride 101 mmol/L (98-107); Globulin 4.2 g/dL (1.3-4.6); Glucose 75 mg/dL (65-115); Potassium 3.6 mmol/L (3.5-5.1); Sodium 137 mmol/L (136-145); Total Protein 7.3 g/dL (6.6-8.7); Triglycerides 105 mg/dL (0-150)
--- NOTE | 2025-01-25 14:54 | PC.NURSE ---
Right upper chest central line remains intact with suture in place to double lumen line. Sterile dressing change/ cap change/ care with lab draws completed today. Patient tolerated well. Reports site is slightly itching upon removal of old dressing. Dressing is very dirty and soiled upon arrival to facility. Patient agrees to wear mask and keeps her head turned during procedure of dressing change. LIne is sluggish with blood return. However, when patient tilts chin to chest blood flow is perfect. No complications noted. Patient verbalized that she continues to use TPN regularly as ordered, flushes that line and follows it with Heparin as prescribed. Patient denies further questions or concerns. Verbalized understanding with weekly dressing changes and lab schedule. She exits visit/ building using her electric wheelchair and has car service for transportation assistance._Mary Alice Olvier
[2025-01-25 15:13] LABS: Blood Urea Nitrogen 25 mg/dL (6-20); Calcium 8.9 mg/dL (8.5-10.5); Magnesium 1.8 mg/dL (1.7-2.3); Osmolality Calculated 287 mOsm/kg (285-295)
[2025-02-01 12:50] VITALS: BP 130/82; PULSE 97; RESP 17; TEMP 36.8; O2SAT 98
[2025-02-01 13:27] LABS: Hematocrit 40.2 % (36-47); Hemoglobin 12.70 g/dL (11.27-16.99); Mean Corpuscular HGB Conc 31.6 g/dL (30-55); Mean Corpuscular Hemoglobin 29.5 pg (27-33); Mean Corpuscular Volume 93.5 fl (85-98); Nucleated Red Blood Cells % 0 %; Platelet Count 438 10^3/cmm (157-399); Red Blood Count 4.30 10^6/uL (3.85-5.65); White Blood Count 6.00 10^3/uL (3.29-11.43)
--- NOTE | 2025-02-01 13:31 | PC.NURSE ---
1230- Right upper chest double lumen 9.5 fr Poerfilter line remains intact with one suture in place. Line is intact at the 0 line. Tolerates dressing change and labs per line without complications. Denies complications. Leaves via electric wheelchair. _NISHANT Oliver
[2025-02-01 13:44] LABS: Alanine Aminotransferase 38 U/L (0-33); Albumin Level 3.2 g/dL (3.5-5.2); Alkaline Phosphatase 179 U/L (35-105); Anion Gap 15.9 (5-19); Aspartate Amino Transferase 31 U/L (0-32); Blood Urea Nitrogen 33 mg/dL (6-20); Calcium 8.9 mg/dL (8.5-10.5); Carbon Dioxide 22 mmol/L (22-29); Chloride 103 mmol/L (98-107); Globulin 4.4 g/dL (1.3-4.6); Glucose 91 mg/dL (65-115); Magnesium 2.0 mg/dL (1.7-2.3); Osmolality Calculated 291 mOsm/kg (285-295); Potassium 3.9 mmol/L (3.5-5.1); Sodium 137 mmol/L (136-145); Total Protein 7.6 g/dL (6.6-8.7); Triglycerides 96 mg/dL (0-150)
== END 2025-02-04 23:59 | disposition home or self-care (01) ==
PROVIDERS: PCP Family Medicine; Visit Provider Family Medicine
DX: Z53.9 Procedure and treatment not carried out, unspecified reason; M72.6 Necrotizing fasciitis; I73.9 Peripheral vascular disease, unspecified; E78.5 Hyperlipidemia, unspecified
CPT/HCPCS: 36415; 36592; 80053; 83735; 84100; 84478; 85025; 97597; 97598; A6210; A6248

== ENCOUNTER 2025-02-04 10:50 | Emergency (ER) | payer OTHER, MEDICAID, SELFPAY ==
--- OUTSIDE RECORDS SUMMARY | 2003-07-07 19:00 | XMS_ITS | Continuity of Care Document ---
Author Name [facility] Address [address] [place] [address] Organization [facility] Care Team Providers Care Professor Of Theatre Name Role Phone [facility] Unavailable Unavailable Allergies, Adverse Reactions, Alerts Substance Category Reaction Severity Reaction type Status Date Reported Comments Source penicillin Assertion Convulsion Severe Drug allergy Active [facility] vancomycin Assertion Drug allergy Active [facility] Ultram Assertion Itching Mild Drug allergy Active [facility] Tape - See Comment Assertion Allergy to substance Active [facility]
[2025-02-04 10:52] VITALS: BP 128/91; PULSE 108; RESP 16; TEMP 36.7; O2SAT 99; BMI 46.4
[2025-02-04 11:06] VITALS: BP 114/72; PULSE 105; RESP 16; O2SAT 98
[2025-02-04 12:05] VITALS: BP 114/72; O2SAT 97
[2025-02-04 12:54] LABS: Hematocrit 49.8 % (36-47); Hemoglobin 15.00 g/dL (11.27-16.99); Mean Corpuscular HGB Conc 30.1 g/dL (30-55); Mean Corpuscular Hemoglobin 29.5 pg (27-33); Mean Corpuscular Volume 97.8 fl (85-98); Nucleated Red Blood Cells % 0 %; Platelet Count 441 10^3/cmm (157-399); Red Blood Count 5.09 10^6/uL (3.85-5.65); White Blood Count 6.19 10^3/uL (3.29-11.43)
[2025-02-04 13:13] LABS: Lactic Sepsis W/Reflex 1.7 mmol/L (0.5-2.2)
[2025-02-04 13:14] LABS: Alanine Aminotransferase 77 U/L (0-33); Albumin Level 3.1 g/dL (3.5-5.2); Alkaline Phosphatase 301 U/L (35-105); Aspartate Amino Transferase 63 U/L (0-32); Blood Urea Nitrogen 40 mg/dL (6-20); Calcium 9.4 mg/dL (8.5-10.5); Carbon Dioxide 18 mmol/L (22-29); Chloride 104 mmol/L (98-107); Creatinine Clr Calc Pharmacy 111.8832; Globulin 5.4 g/dL (1.3-4.6); Glucose 102 mg/dL (65-115); Osmolality Calculated 290 mOsm/kg (285-295); Sodium 135 mmol/L (136-145); Total Protein 8.5 g/dL (6.6-8.7)
[2025-02-04 13:16] LABS: Anion Gap 17.6 (5-19); Potassium 4.6 mmol/L (3.5-5.1)
[2025-02-04 14:15] LABS: Glucose Urine UA Negative (Normal); Nitrate Urine Positive (Negative); Specific Gravity, Urine 1.024 (1.005-1.030)
[2025-02-04 14:18] LABS: Add Urine Microscopic? YES
[2025-02-04 14:40] LABS: UA Manual Slide Review YES; UA Slide Review UA Slide Review Perf
[2025-02-04] MEDS: cefTRIAXone 1,000 MG in water for injection-sterile 2.1 ML 2.1 MG IM (15:05)
--- NOTE | 2025-02-04 15:14 | W.ED.ABDPA2 ---
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 She reports her suprapubic catheter has not been functioning properly for the past two weeks, with urine leaking from her vagina instead of draining through the catheter. She has a chronic colostomy since 2007 and a fistula since October of this year. The patient states she has been experiencing nausea with dry heaving but denies fever. The patient reports she was planning to wait until her scheduled urology appointment next Saturday (approximately 4 weeks since her last catheter change) but presented today due to worsening pain. She mentions her mother started her on Bactrim recently, which she believes was initially 600mg and then reduced to 400mg. Patient reports being on chronic antibiotic therapy recently. Related Data Home Medications ?Medication ?Instructions ?Recorded ?Confirmed gabapentin 600 mg tablet 600 mg PO BEDTIME 04/12/20 02/04/25 venlafaxine 150 mg 150 mg PO BEDTIME 04/12/20 02/04/25 capsule,extended release 24 hr baclofen 20 mg tablet 20 mg PO BEDTIME 02/26/23 02/04/25 trazodone 50 mg tablet 25 mg PO BEDTIME 09/24/23 02/04/25 albuterol sulfate 1.25 mg/3 mL 2.5 mg inhalation .Q4H PRN 08/18/24 02/04/25 solution for nebulization shortness of breath or wheezing diphenoxylate-atropine 2.5 2 tab PO QID 02/04/25 02/04/25 mg-0.025 mg tablet loperamide 2 mg capsule 4 mg PO QID PRN Diarrhea 02/04/25 02/04/25 omeprazole 40 mg capsule,delayed 40 mg PO DAILY 02/04/25 02/04/25 release sulfamethoxazole 400 1 tab PO DAILY 02/04/25 02/04/25 mg-trimethoprim 80 mg tablet Previous Rx's ?Medication ?Instructions ?Recorded prothrombin time/INR test metr #30 ea 08/24/24 cephalexin 500 mg capsule 500 mg PO Q6H 7 days #28 caps 02/04/25 Allergies Allergy/AdvReac Type Severity Reaction Status Date / Time levofloxacin (From [employer]) Allergy Unknown Unknown Verified 11/02/24 15:46 azithromycin Allergy Unknown Verified 11/02/24 15:46 Penicillins Allergy Unknown Verified 11/02/24 15:46 tramadol (From Ultram) Allergy Unknown Verified 11/02/24 15:46 vancomycin Allergy Unknown Verified 11/02/24 15:46 amoxicillin AdvReac Unknown ADR-Seizure Verified 11/02/24 15:46 [facility] ED PFS: Medical History (Updated 02/04/25 @ 15:21 by Jaswant Toro MD) Shock Groin hematoma BMI 50.0-59.9, adult Chronic anticoagulation History of angiography 2015 abdominal angiography and lower extremity angiography - normal abdominal aorta, pelvic vessels normal, all lower extremity vessels unremarkable, 3 vessel runoff below both knees History of cardiovascular stress test 07/2024 abnormalities on myocardial perfusion scanning History of sleep study 05/2017 - cpap auto-titrating 15-19 Wound of sacral region goes to wound care clinic Abscess of sacrum Parastomal hernia Ventral incisional hernia GERD (gastroesophageal reflux disease) Depression Fracture of fifth toe, right, closed History of sleep apnea sleep study in 2016 recommended auto-titrating cpap 15-[address] Complications of surgery for ovarian cyst around 2004 resulting in bowel injury Chronic venous insufficiency of lower extremity PVD (peripheral vascular disease) History of DVT (deep vein thrombosis) (2004) and pulmonary embolism 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 Chronic osteomyelitis Neurogenic bladder Chronic cystitis Surgical History History of carpal tunnel release History of abdominal surgery (2007) excision of pelvic cysts complicated by bowel perforation, had multiple procedures including colostomy History of inferior vena caval filter placement (2004) still in place in 08/2024 History of incision and drainage (04/2019) sacral wound History of back surgery (2004) for spinal abscess x 2 History of hysterectomy (2003) S/P cholecystectomy S/P section Suprapubic catheter (~2004) following urology in [place] Family History Family/Other Diabetes Cancer CAD (coronary artery disease) Mother , at age 74 Sepsis Cancer melanoma Diabetes Father Heart disease Other Dementia Diabetes mellitus type 1 Hypertension Stroke Social History (Reviewed 11/02/24 @ 15:47 by DENISE Mohan Smoking and tobacco/nicotine status: never used tobacco/nicotine Alcohol intake: never Substance/Drug Use: never Additional social history: daughter performs dressing changes twice per day, she and other family provide assistance as needed, wheelchair dependent, able to use transfer board Caregiver/support person: Yes Lives independently: Yes Marital status: Current occupational status: disabled Physical Exam Const: OTHER: Chronically ill-appearing morbidly obese female in a motorized wheelchair HENMT: COMMON NORMALS: normocephalic and atraumatic HEAD & SCALP: normocephalic and atraumatic MOUTH: Normal oral and palatal mucosa present Eye: COMMON NORMALS: EOMs intact bilaterally Neck/C-Spine: COMMON NORMALS: supple Chest: COMMONS NORMALS: normal inspection of the chest Resp: COMMON NORMALS: normal respiratory effort, No retractions, No use of accessory muscles and clear to auscultation bilaterally AUSCULTATION: clear to auscultation bilaterally Cardio: RATE: tachycardic (Mild tachycardia with a heart rate of around 100 bpm) GI: OTHER: Abdomen is obese, 2 ostomy bags to the left lower quadrant. 1 ostomy bag full of liquid material with debris that patient states is from her abdominal fistula. The other ostomy bag with liquid stool from her colostomy. Smegma noted to the pannus in the suprapubic region. Suprapubic Mahajan catheter noted with some drainage and moist skin with mild skin breakdown. Extremity: NARRATIVE EXTREMITY EXAM: Wheelchair-bound with reported bilateral lower extremity paraplegia Course Vital Signs: Vital signs: Vital Signs Temperature 98.1 F 02/04/25 10:52 Pulse Rate 105 H 02/04/25 11:06 Respiratory Rate 16 02/04/25 11:06 Blood Pressure 114/72 02/04/25 12:05 Pulse Oximetry 97 02/04/25 12:05 Oxygen Delivery Me thod Room Air 02/04/25 10:52 MDM - Abdominal Pain Medical Decision Making ROS: Constitutional: Denies fever. Reports nausea with dry heaving. Gastrointestinal: Reports severe abdominal pain, primarily in the central area. Genitourinary: Reports suprapubic catheter malfunction with urinary leakage from vagina for past two weeks. Neurological: History of paraplegia with preserved sensation in lower extremities. Can transfer but cannot walk. 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 Additional considerations include intra-abdominal infection related to fistula, pyelonephritis, and urosepsis. Based on this initial impression I will order urinalysis, CBC, CMP, and lactic acid to evaluate for infection and assess renal function. Will perform suprapubic catheter exchange. Will administer IV antibiotics if infection is confirmed and provide symptomatic treatment for nausea and pain as needed. TEST INTERPRETATIONS: CBC: WBC 6.1, Hemoglobin 15, Hematocrit 49 - Within normal limits, no leukocytosis CMP: Overall unremarkable with mild azotemia (BUN 40, Creatinine 0.7) Lactic Acid: 1.7 - Normal, no evidence of significant tissue hypoperfusion Urinalysis (from suprapubic catheter): Turbid urine with 3+ blood, positive nitrites, 2+ leukocyte esterase, >100 RBCs, >100 WBCs, and 4+ bacteria - Consistent with urinary tract infection PROCEDURES: Procedure: Suprapubic Catheter Exchange Indication: Malfunctioning suprapubic catheter with urinary leakage Technique: After obtaining informed consent, the area around the suprapubic catheter was cleansed with antiseptic solution. The old catheter was removed and a new catheter was inserted through the established tract. The balloon was inflated with sterile water and the catheter was secured in place. Clear urine return was confirmed after placement. Complications: None Patient Tolerance: Procedure well-tolerated FINAL IMPRESSION: Based on all the above, my clinical impression is most compatible with urinary tract infection with suprapubic catheter malfunction. The clinical picture is not currently suggestive of urosepsis, intra-abdominal abscess, or acute surgical abdomen. Although other conditions were also considered, they were deemed unlikely based on the clinical information available. CLINICAL DISPOSITION: The patient's current condition is stable in my estimation and the most appropriate and indicated disposition at this time is discharge home with oral antibiotics and follow-up with urology. The patient is safe for discharge as she has normal vital signs, no evidence of systemic infection (normal WBC and lactic acid), and her suprapubic catheter is now functioning properly after exchange. She has a scheduled follow-up with her urologist in a few days which will provide appropriate continuity of care. Her symptoms should improve with the antibiotic therapy prescribed. RISK STRATIFICATION AND CLINICAL DECISION RULES APPLIED: No formal clinical decision rules were applied in this case. Clinical judgment was used to determine that the patient had a urinary tract infection without signs of sepsis (normal WBC, normal lactic acid) and would benefit from catheter exchange and antibiotic therapy. CASE SUMMARY: Patient is a female with history of paraplegia due to spinal abscess in 2004, chronic colostomy since 2007, and fistula since October 2024 who presented with abdominal pain and suprapubic catheter malfunction. The catheter had not been functioning properly for two weeks with urine leaking from her vagina. Laboratory studies revealed a urinary tract infection with turbid urine, positive nitrites, leukocyte esterase, and bacteria, but normal WBC count and lactic acid. The suprapubic catheter was successfully exchanged in the ED with good urine return. Patient received one dose of Rocephin 1g IV in the ED and was discharged with a prescription for Keflex 500mg QID. She was instructed to keep the catheter site clean and dry and to follow up with her urologist as scheduled on Saturday. Return precautions were provided for fever, increasing abdominal pain, vomiting, or other concerns. SEPSIS COMPLIANCE: Patient does not meet criteria for sepsis. Normal WBC count of 6.1 and lactic acid of 1.7. Lab Data I reviewed the patient's lab results. 02/04/25 12:45 02/04/25 12:45 Labs/Radiology: Laboratory Results WBC 6.19 10^3/uL (3.29-11.43) 02/04/25 12:45 RBC 5.09 10^6/uL (3.85-5.65) 02/04/25 12:45 Hgb 15.00 g/dL (11.27-16.99) 02/04/25 12:45 Hct 49.8 % (36-47) H 02/04/25 12:45 MCV 97.8 fl (85-98) 02/04/25 12:45 MCH 29.5 pg (27-33) 02/04/25 12:45 MCHC 30.1 g/dL (30-55) 02/04/25 12:45 RDW 14.6 % (12.1-15.1) 02/04/25 12:45 Plt Count 441 10^3/cmm (157-399) H 02/04/25 12:45 MPV 11.0 fL (7.4-10.4) H 02/04/25 12:45 Neut % (Auto) 56.9 % 02/04/25 12:45 Lymph % (Auto) 27.1 % 02/04/25 12:45 Piatt % (Auto) 12.8 % 02/04/25 12:45 Eos % (Auto) 2.6 % 02/04/25 12:45 Baso % (Auto) 0.3 % 02/04/25 12:45 Neut # (Auto) 3.52 10^3/uL (1.8-7.7) 02/04/25 12:45 Lymph # (Auto) 1.7 10^3/uL (0.8-4.8) 02/04/25 12:45 [place]att # (Auto) 0.8 10^3/uL (0.2-0.9) 02/04/25 12:45 Eos # (Auto) 0.2 10^3/uL (0.0-0.8) 02/04/25 12:45 Baso # (Auto) 0.0 10^3/uL (0.0-0.1) 02/04/25 12:45 Nucleated RBC % (auto) 0 % 02/04/25 12:45 Nucleated RBCs # 0.0 /100WBC 02/04/25 12:45 Sodium 135 mmol/L (136-145) L 02/04/25 12:45 Potassium 4.6 mmol/L (3.5-5.1) 02/04/25 12:45 Chloride 104 mmol/L (98-107) 02/04/25 12:45 Carbon Dioxide 18 mmol/L (22-29) L 02/04/25 12:45 Anion Gap 17.6 (5-19) 02/04/25 12:45 BUN 40 mg/dL (6-20) H 02/04/25 12:45 Creatinine 0.7 mg/dL (0.5-0.9) 02/04/25 12:45 GFR Calculation 86.6 mL/min (90-130) L 02/04/25 12:45 Glucose 102 mg/dL (65-115) 02/04/25 12:45 Calculated Osmolality 290 mOsm/kg (285-295) 02/04/25 12:45 Lactic Acid 1.7 mmol/L (0.5-2.2) 02/04/25 12:45 Calcium 9.4 mg/dL (8.5-10.5) 02/04/25 12:45 Total Bilirubin 0.3 mg/dL (0.15-1.2) 02/04/25 12:45 AST 63 U/L (0-32) H 02/04/25 12:45 ALT 77 U/L (0-33) H 02/04/25 12:45 Alkaline Phosphatase 301 U/L (35-105) H 02/04/25 12:45 Total Protein 8.5 g/dL (6.6-8.7) 02/04/25 12:45 Albumin 3.1 g/dL (3.5-5.2) L 02/04/25 12:45 Globulin 5.4 g/dL (1.3-4.6) H 02/04/25 12:45 Urine Color [place] (Yellow) A 02/04/25 14:06 Urine Appearance Turbid (CLEAR) A 02/04/25 14:06 Urine pH 8.5 (5-7) A 02/04/25 14:06 Ur Specific [place] 1.024 (1.005-1.030) 02/04/25 14:06 Urine Protein 3+ (Negative) A 02/04/25 14:06 Urine Glucose (UA) Negative (Normal) 02/04/25 14:06 Urine Ketones Negative (Negative) 02/04/25 14:06 Urine Blood 3+ (Negative) A 02/04/25 14:06 Urine Nitrate Positive (Negative) A 02/04/25 14:06 Urine Bilirubin Negative (Negative) 02/04/25 14:06 Urine Urobilinogen 1.0 mg/dL (Negative) 02/04/25 14:06 Ur Leukocyte Esterase 2+ (Negative) A 02/04/25 14:06 Urine RBC >100 /hpf (0-2) H 02/04/25 14:06 Urine WBC >100 /hpf (0-5) H 02/04/25 14:06 Ur Squamous Epith Cells 0-4 /hpf (0-5) H 02/04/25 14:06 Triple Phos Crystals 10-15 /hpf H 02/04/25 14:06 Amorphous Sediment Not Reportable 02/04/25 14:06 Urine Bacteria 4+ /hpf (NONE) H 02/04/25 14:06 Hyaline Casts 10-15 /lpf H 02/04/25 14:06 Urine Mucus 1+ /hpf 02/04/25 14:06 No radiology studies performed this visit Discharge Plan Discharge Patient Disposition: Home Clinical Impression: Cystitis, Blocked suprapubic catheter Condition: Stable Prescriptions: New cephalexin 500 mg capsule 500 mg PO Q6H 7 Days Qty: 28 0RF No Action gabapentin 600 mg tablet 600 mg PO BEDTIME venlafaxine 150 mg capsule,extended release 24hr 150 mg PO BEDTIME trazodone 50 mg tablet 25 mg PO BEDTIME albuterol sulfate 1.25 mg/3 mL solution for nebulization 2.5 mg inhalation .Q4H PRN (Reason: shortness of breath or wheezing) (DME) prothrombin time/INR test metr Misc See Rx Instructions .Route Qty: 30 0RF Rx Instructions: As directed- INR strips loperamide 2 mg capsule 4 mg PO QID PRN (Reason: Diarrhea) sulfamethoxazole-trimethoprim 400-80 mg tablet 1 tab PO DAILY diphenoxylate-atropine 2.5-0.025 mg tablet 2 tab PO QID omeprazole 40 mg capsule,delayed release(DR/EC) 40 mg PO DAILY baclofen 20 mg tablet 20 mg PO BEDTIME Discharge Orders: Discharge ED (Routine); Ordered 02/04/25 Ordered By: Jaswant Toro Referrals: Marcus Benson MD [Primary Care Provider, Family Practice] Discharge Diet: Usual diet Discharge Activity: Resume usual activity Patient Instructions: How to Care for Your Suprapubic Catheter (DC), Opioid Safety, Pain Management, Patient Portal & Jodie Instructions Activity Restrictions/Additional Instructions: Diagnosis: Urinary Tract Infection with Suprapubic Catheter Malfunction Instructions: 1. Take Keflex 500mg four times daily as prescribed until finished 2. Keep the area around your suprapubic catheter clean and dry 3. Empty your catheter bag regularly 4. Drink plenty of fluids unless otherwise instructed by your doctor 5. Attend your scheduled appointment with your urologist on Saturday Return to the Emergency Department immediately if you experience: - Fever greater than 101?F - Increasing abdominal pain - Vomiting - Catheter becomes dislodged or stops draining again - Foul-smelling or cloudy urine - Confusion or extreme fatigue - Any other concerning symptoms Print Language: Kyrgyz Coding Level of Care Code ED Set Up Technician for Hetal [facility]ron
[2025-02-04 15:20] VITALS: BP 114/72
--- OUTSIDE RECORDS SUMMARY | 2025-02-05 05:02 | XMS_ITS | Encounter Summary ---
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 de Phone Number INTERFACE SYSTEM Refer to clinic/hospital department [facility] CLIA# [id number] [address] [place] [address] * (ABNORMAL) POC GLUCOSE (04/28/2008 6:07 AM CDT) GLUCOSE POC 132(H) 60 - 100 mg/dL [facility] Venous blood specimen (specimen) 04/28/2008 6:07 AM CDT 04/29/2008 1:56 AM CDT us Riky Mejía MD POINT OF CARE TESTING Final Result Performing Organization Address [facility] Phone Number INTERFACE SYSTEM Refer to clinic/hospital department [facility] CLIA# [id number] [facility] [place] [address] * (ABNORMAL) BASIC METABOLIC PANEL (04/28/2008 5:15 AM CDT) ANION GAP 10 9 - 20 mEq/L [facility] SODIUM 137 136 - 145 mEq/L [facility] BUN 13 7 - 17 mg/dL [facility] CO2 30 22 - 32 mmol/l [facility] POTASSIUM 4.5 3.5 - 5.0 mEq/L [facility] Comment: Specimen slightly hemolyzed OSMOLALITY, CALCULATED 284 275 - 295 mOsm/Kg [facility] CREATININE 0.6(L) 0.7 - 1.2 mg/dL [facility] CALCIUM 9.0 8.4 - 10.5 mg/dL [facility] GLUCOSE 112(H) 70 - 110 mg/dL [facility] CHLORIDE 102 95 - 110 mEq/L [facility] Blood specimen (specimen) 04/28/2008 5:15 AM CDT 04/28/2008 5:29 AM CDT us Riky Mejía MD CHEMISTRY ORDERABLES Final Result Performing Organization Address [facility] de Phone Number INTERFACE SYSTEM Refer to clinic/hospital department [facility] CLIA# [id number] [address] [place] [address] * (ABNORMAL) POC GLUCOSE (04/27/2008 8:55 PM CDT) GLUCOSE POC 133(H) 60 - 100 mg/dL [facility] Venous blood specimen (specimen) 04/27/2008 8:55 PM CDT 04/28/2008 2:27 AM CDT us Riky Mejía MD POINT OF CARE TESTING Final Result Performing Organization Address [facility] Phone Number INTERFACE SYSTEM Refer to clinic/[facility] department [facility] CLIA# [id number] [facility] [place] [address] * (ABNORMAL) POC GLUCOSE (04/27/2008 4:38 PM CDT) GLUCOSE POC 112(H) 60 - 100 mg/dL [facility] COMMENT POC Follow Protocol [facility] Venous blood specimen (specimen) 04/27/2008 4:38 PM CDT 04/28/2008 12:35 AM CDT Riky Mejía MD POINT OF CARE TESTING Final Result Performing Organization Address [facility] de Phone Number INTERFACE SYSTEM Refer to clinic/hospital department [facility] CLIA# [id number] [address] [place] [address] * (ABNORMAL) POC GLUCOSE (04/27/2008 11:23 AM CDT) GLUCOSE POC 143(H) 60 - 100 mg/dL [facility] Venous blood specimen (specimen) 04/27/2008 11:23 AM CDT 04/28/2008 2:23 AM CDT Riky Mejía MD POINT OF CARE TESTING Final Result Performing Organization Address [facility] de Phone Number INTERFACE SYSTEM Refer to clinic/hospital department [facility] CLIA# [id number] [address] [place] [address] * (ABNORMAL) POC GLUCOSE (04/27/2008 6:38 AM CDT) GLUCOSE POC 122(H) 60 - 100 mg/dL [facility] Venous blood specimen (specimen) 04/27/2008 6:38 AM CDT 04/28/2008 2:33 AM CDT Riky Meíja MD POINT OF CARE TESTING Final Result Performing Organization Address [facility] de Phone Number INTERFACE SYSTEM Refer to clinic/[facility] CLIA# [id number] [address] [place] [address] * (ABNORMAL) POC GLUCOSE (04/26/2008 8:43 PM CDT) GLUCOSE POC 128(H) 60 - 100 mg/dL [facility] Venous blood specimen (specimen) 04/26/2008 8:43 PM CDT 04/27/2008 2:25 AM CDT Riky Mejía MD POINT OF CARE TESTING Final Result Performing Organization Address [facility] de Phone Number INTERFACE SYSTEM Refer to clinic/hospital department [facility] CLIA# [id number] [address] [place] [address] * (ABNORMAL) POC GLUCOSE (04/26/2008 4:53 PM CDT) GLUCOSE POC 113(H) 60 - 100 mg/dL [facility] Venous blood specimen (specimen) 04/26/2008 4:53 PM CDT 04/27/2008 2:26 AM CDT Riky Mejía MD POINT OF CARE TESTING Final Result Performing Organization Address [facility] Phone Number INTERFACE SYSTEM Refer to clinic/hospital department [facility] CLIA# [id number] [address] [place] [address] * (ABNORMAL) POC GLUCOSE (04/26/2008 11:28 AM CDT) GLUCOSE POC 125(H) 60 - 100 mg/dL [facility] Venous blood specimen (specimen) 04/26/2008 11:28 AM CDT 04/27/2008 2:25 AM CDT Riky Mejía MD POINT OF CARE TESTING Final Result Performing Organization Address [facility] de Phone Number INTERFACE SYSTEM Refer to clinic/hospital department [facility] CLIA# [id number] [address] [place] [address] * (ABNORMAL) POC GLUCOSE (04/26/2008 5:36 AM CDT) GLUCOSE POC 123(H) 60 - 100 mg/dL [facility] Venous blood specimen (specimen) 04/26/2008 5:36 AM CDT 04/27/2008 2:25 AM CDT Riky Meíja MD POINT OF CARE TESTING Final Result Performing Organization Address [facility] Phone Number INTERFACE SYSTEM Refer to clinic/hospital department [facility] CLIA# [id number] [address] [place] [address] * (ABNORMAL) TRANSFERRIN (04/26/2008 4:02 AM CDT) TRANSFERRIN 121.0(L) 204.0 - 376.0 mg/dL [facility] Blood specimen (specimen) 04/26/2008 4:02 AM CDT 04/26/2008 4:19 AM CDT Riky Mejía MD CHEMISTRY ORDERABLES Final Result Performing Organization Address [facility] Phone Number INTERFACE SYSTEM Refer to clinic/hospital department [facility] CLIA# [id number] [address] [place] [address] * PREALBUMIN (04/26/2008 4:02 AM CDT) PREALBUMIN 22.2 14.0 - 32.0 mg/dL [facility] Blood specimen (specimen) 04/26/2008 4:02 AM CDT 04/26/2008 4:19 AM CDT Riky Mejía MD CHEMISTRY ORDERABLES Final Result Performing Organization Address [facility] Phone Number INTERFACE SYSTEM Refer to clinic/[facility] CLIA# [id number] [address] [place] [address] * (ABNORMAL) PROTIME-INR (04/26/2008 4:02 AM CDT) PROTIME 16.1(H) 12.8 - 15.8 Secs [facility] Comment:As of 2007 not e change in normal range. INR 1.2 [facility] Comment: Expected Values for INR: DVT/PE Goal INR 2.5; range 2.0 - 3.0 Valve Replacement Tissue Goal INR 2.5; range 2.0 - 3.0 Mechanical Goal INR 3.0; range 2.5 - 3.5 POST-GA Goal INR 2.5; range 2.0 - 3.0 or Goal 3.0; range 2.5 - 3.5 Atrial Fibrillation Goal INR 2.5; range 2.0 - 3.0 Ischemic Stroke Goal INR 2.5; range 2.0 - 3.0 For additional information see Guidelines for Anticoagulation available from the pharmacy [facility] [phone] Blood specimen (specimen) 04/26/2008 4:02 AM CDT 04/26/2008 4:19 AM CDT Riky Mejía MD HEMATOLOGY ORDERABLES Final Result INTERFACE SYSTEM Refer to clinic/hospital department [facility] CLIA# [id number] [address] [place] [address] * (ABNORMAL) CBC WITH DIFFERENTIAL (04/26/2008 4:02 AM CDT) BASOPHILS ABSOLUTE 0.1 0.0 - 0.2 K/ul [facility] HEMOGLOBIN 10.3(L) 12.0 - 16.0 g/dL [facility] MONOCYTES 11.6(H) 2.0 - 10.0 % [facility] RDW 18.2(H) 11.0 - 14.5 % [facility] MONOCYTE ABSOLUTE 0.9(H) 0.1 - 0.6 K/ul [facility] WBC 8.1 4.5 - 11.0 K/ul [facility] NEUTROPHILS 67.2 42.2 - 75.2 % [facility] MCH 29.3 27.0 - 34.0 pg [facility] NEUTROPHIL ABSOLUTE 5.5 2.0 - 8.0 K/ul [facility] HEMATOCRIT 33.7(L) 36.0 - 46.0 % [facility] PLATELETS 436 140 - 440 K/ul [facility] EOSINOPHIL ABSOLUTE 0.3 0.0 - 0.7 K/ul [facility] EOSINOPHILS 4.0 0.0 - 7.0 % [facility] PERIPHERAL BLOOD SMEAR REVIEW Automated Diff [facility] RBC 3.51(L) 4.20 - 5.40 Mil/ul [facility] MCHC 30.6 30.0 - 35.0 g/dL [facility] LYMPHOCYTE ABSOLUTE 1.3 1.2 - 4.0 K/ul [facility] LYMPHOCYTES 16.2(L) 24.0 - 44.0 % [facility] MCV 96.0 84.0 - 103.0 Fl [facility] BASOPHILS 1.0 0.0 - 1.0 % [facility] MPV 10.3 8.9 - 12.8 Fl [facility] Blood specimen (specimen) 04/26/2008 4:02 AM CDT 04/26/2008 4:19 AM CDT Narrative INTERFACE SYSTEM - 04/26/2008 4:35 AM CDT cbc with diff in am Riky Mejía MD HEMATOLOGY ORDERABLES Final Result INTERFACE SYSTEM Refer to clinic/hospital department [facility] CLIA# [id number] [address] [place] [address] * MAGNESIUM LEVEL (04/26/2008 4:02 AM CDT) MAGNESIUM 2.0 1.7 - 2.4 mg/dL [facility] Blood specimen (specimen) 04/26/2008 4:02 AM CDT 04/26/2008 4:19 AM CDT us Riky Mejía MD CHEMISTRY ORDERABLES Final Result Performing Organization Address [facility] Phone Number INTERFACE SYSTEM Refer to clinic/hospital department [facility] CLIA# [id number] [address] [place] [address] * TRIGLYCERIDE (04/26/2008 4:02 AM CDT) [facility] TRIGLYCERIDE 137 0 - 150 mg/dL [facility] Comment: On 11/10/2007, [facility] changed the triglyceride reference range to 0-150 mg/dl. This is the recommendation of the National Cholesterol Education Program (NCEP-ATPIII). Blood specimen (specimen) 04/26/2008 4:02 AM CDT 04/26/2008 4:19 AM CDT Riky Mejía MD CHEMISTRY ORDERABLES Final Result Performing Organization Address [facility] Phone Number INTERFACE SYSTEM Refer to clinic/hospital department [facility] CLIA# [id number] [address] [place] [address] * PHOSPHORUS (04/26/2008 4:02 AM CDT) [facility] PHOSPHORUS 4.1 2.5 - 4.6 mg/dL [facility] Blood specimen (specimen) 04/26/2008 4:02 AM CDT 04/26/2008 4:19 AM CDT Riky Mejía MD CHEMISTRY ORDERABLES Final Result Performing Organization Address [facility] Phone Number INTERFACE SYSTEM Refer to clinic/[facility] CLIA# [id number] [address] [place] [address] * (ABNORMAL) COMPREHENSIVE METABOLIC PANEL (04/26/2008 4:02 AM CDT) Pathologist [facility] OSMOLALITY, CALCULATED 284 275 - 295 mOsm/Kg [facility] GLOBULIN (CALC) 3.4 2.4 - 3.9 g/dL [facility] TOTAL PROTEIN 6.6 6.3 - 8.2 g/dL [facility] SODIUM 137 136 - 145 mEq/L [facility] BILIRUBIN TOTAL 0.8 0.3 - 1.2 mg/dL [facility] CO2 33(H) 22 - 32 mmol/l [facility] BUN 15 7 - 17 mg/dL [facility] AST 29 8 - 33 U/L [facility] ALBUMIN/GLOBULIN RATIO 0.9(L) 1.0 - 2.3 [facility] POTASSIUM 3.9 3.5 - 5.0 mEq/L [facility] ANION GAP 7(L) 9 - 20 mEq/L [facility] ALBUMIN 3.2(L) 3.5 - 5.0 g/dL [facility] CREATININE 0.6(L) 0.7 - 1.2 mg/dL [facility] ALT 27 4 - 36 IU/L [facility] CALCIUM 8.7 8.4 - 10.5 mg/dL [facility] GLUCOSE 110 70 - 110 mg/dL [facility] ALKALINE PHOSPHATASE 105(H) 25 - 100 U/L [facility] CHLORIDE 101 95 - 110 mEq/L [facility] Blood specimen (specimen) 04/26/2008 4:02 AM CDT 04/26/2008 4:19 AM CDT us Riky Mejía MD CHEMISTRY ORDERABLES Final Result INTERFACE SYSTEM Refer to clinic/hospital department [facility] CLIA# [id number] [address] [place] [address] * (ABNORMAL) BASIC METABOLIC PANEL (04/26/2008 4:02 AM CDT) GLUCOSE 110 70 - 110 mg/dL [facility] CHLORIDE 100 95 - 110 mEq/L [facility] ANION GAP 9 9 - 20 mEq/L [facility] SODIUM 137 136 - 145 mEq/L [facility] BUN 16 7 - 17 mg/dL [facility] CO2 32 22 - 32 mmol/l [facility] POTASSIUM 4.3 3.5 - 5.0 mEq/L [facility] OSMOLALITY, CALCULATED 285 275 - 295 mOsm/Kg [facility] CREATININE 0.5(L) 0.7 - 1.2 mg/dL [facility] CALCIUM 8.8 8.4 - 10.5 mg/dL [facility] Blood specimen (specimen) 04/26/2008 4:02 AM CDT 04/26/2008 4:19 AM CDT Riky Mejía MD CHEMISTRY ORDERABLES Final Result Performing Organization Address [facility] Phone Number INTERFACE SYSTEM Refer to clinic/hospital department [facility] CLIA# [id number] [address] [place] [address] * (ABNORMAL) POC GLUCOSE (04/25/2008 8:51 PM CDT) GLUCOSE POC 107(H) 60 - 100 mg/dL [facility] Venous blood specimen (specimen) 04/25/2008 8:51 PM CDT 04/26/2008 1:42 AM CDT Riky Mejía MD POINT OF CARE TESTING Final Result Performing Organization Address [facility] Phone Number INTERFACE SYSTEM Refer to clinic/hospital department [facility] CLIA# [id number] [address] [place] [address] * (ABNORMAL) POC GLUCOSE (04/25/2008 5:10 PM CDT) GLUCOSE POC 102(H) 60 - 100 mg/dL [facility] Venous blood specimen (specimen) 04/25/2008 5:10 PM CDT 04/26/2008 1:42 AM CDT Riky Mejía MD POINT OF CARE TESTING Final Result Performing Organization Address [facility] Phone Number INTERFACE SYSTEM Refer to clinic/hospital department [facility] CLIA# [id number] [address] [place] [address] * (ABNORMAL) POC GLUCOSE (04/25/2008 10:45 AM CDT) GLUCOSE POC 114(H) 60 - 100 mg/dL [facility] Venous blood specimen (specimen) 04/25/2008 10:45 AM CDT 04/26/2008 1:42 AM CDT Riky Mejía MD POINT OF CARE TESTING Final Result Performing Organization Address [facility] Phone Number INTERFACE SYSTEM Refer to clinic/hospital department [facility] CLIA# [id number] [address] [place] [address] * (ABNORMAL) POC GLUCOSE (04/25/2008 6:00 AM CDT) GLUCOSE POC 113(H) 60 - 100 mg/dL [facility] Venous blood specimen (specimen) 04/25/2008 6:00 AM CDT 04/26/2008 1:45 AM CDT Riky Mejía MD POINT OF CARE TESTING Final Result Performing Organization Address [facility] de Phone Number INTERFACE SYSTEM Refer to clinic/hospital department [facility] CLIA# [id number] [address] [place] [address] * (ABNORMAL) BASIC METABOLIC PANEL (04/25/2008 3:28 AM CDT) OSMOLALITY, CALCULATED 286 275 - 295 mOsm/Kg [facility] CREATININE 0.5(L) 0.7 - 1.2 mg/dL [facility] CALCIUM 8.9 8.4 - 10.5 mg/dL [facility] GLUCOSE 115(H) 70 - 110 mg/dL [facility] CHLORIDE 101 95 - 110 mEq/L [facility] SODIUM 136 136 - 145 mEq/L [facility] ANION GAP 10 9 - 20 mEq/L [facility] BUN 20(H) 7 - 17 mg/dL [facility] CO2 30 22 - 32 mmol/l [facility] POTASSIUM 4.9 3.5 - 5.0 mEq/L [facility] Blood specimen (specimen) 04/25/2008 3:28 AM CDT 04/25/2008 3:31 AM CDT Riky Mejía MD CHEMISTRY ORDERABLES Final Result Performing Organization Address [facility] Phone Number INTERFACE SYSTEM Refer to clinic/hospital department [facility] CLIA# [id number] [address] [place] [address] * (ABNORMAL) POC GLUCOSE (04/24/2008 8:30 PM CDT) GLUCOSE POC 121(H) 60 - 100 mg/dL [facility] Venous blood specimen (specimen) 04/24/2008 8:30 PM CDT 04/25/2008 1:43 AM CDT Riky Mejía MD POINT OF CARE TESTING Final Result Performing Organization Address [facility] Phone Number INTERFACE SYSTEM Refer to clinic/hospital department [facility] CLIA# [id number] [address] [place] [address] * (ABNORMAL) POC GLUCOSE (04/24/2008 5:10 PM CDT) GLUCOSE POC 109(H) 60 - 100 mg/dL [facility] Venous blood specimen (specimen) 04/24/2008 5:10 PM CDT 04/25/2008 1:43 AM CDT Riky Mejía MD POINT OF CARE TESTING Final Result Performing Organization Address [facility] de Phone Number INTERFACE SYSTEM Refer to clinic/hospital department [facility] CLIA# [id number] [address] [place] [address] * (ABNORMAL) POC GLUCOSE (04/24/2008 1:53 PM CDT) GLUCOSE POC 113(H) 60 - 100 mg/dL [facility] Venous blood specimen (specimen) 04/24/2008 1:53 PM CDT 04/25/2008 1:50 AM CDT Riky Mejía MD POINT OF CARE TESTING Final Result Performing Organization Address [facility] de Phone Number INTERFACE SYSTEM Refer to clinic/hospital department [facility] CLIA# [id number] [address] [place] [address] * (ABNORMAL) POC GLUCOSE (04/24/2008 11:40 AM CDT) GLUCOSE POC 160(H) 60 - 100 mg/dL [facility] Venous blood specimen (specimen) 04/24/2008 11:40 AM CDT 04/25/2008 1:50 AM CDT Riky Mejía MD POINT OF CARE TESTING Final Result Performing Organization Address [facility] de Phone Number INTERFACE SYSTEM Refer to clinic/hospital department [facility] CLIA# [id number] [address] [place] [address] * (ABNORMAL) POC GLUCOSE (04/24/2008 5:45 AM CDT) GLUCOSE POC 129(H) 60 - 100 mg/dL [facility] Venous blood specimen (specimen) 04/24/2008 5:45 AM CDT 04/25/2008 1:46 AM CDT Riky Mejía MD POINT OF CARE TESTING Final Result INTERFACE SYSTEM Refer to clinic/hospital department [facility] CLIA# [id number] [address] [place] [address] * (ABNORMAL) CBC WITH DIFFERENTIAL (04/24/2008 3:09 AM CDT) WBC 10.5 4.5 - 11.0 K/ul [facility] MCH 29.4 27.0 - 34.0 pg [facility] NEUTROPHIL ABSOLUTE 7.1 2.0 - 8.0 K/ul [facility] NEUTROPHILS 67.1 42.2 - 75.2 % [facility] HEMATOCRIT 32.8(L) 36.0 - 46.0 % [facility] EOSINOPHILS 4.3 0.0 - 7.0 % [facility] PLATELETS 491(H) 140 - 440 K/ul [facility] PERIPHERAL BLOOD SMEAR REVIEW Automated Diff [facility] EOSINOPHIL ABSOLUTE 0.5 0.0 - 0.7 K/ul [facility] RBC 3.44(L) 4.20 - 5.40 Mil/ul [facility] LYMPHOCYTES 17.3(L) 24.0 - 44.0 % [facility] MCHC 30.8 30.0 - 35.0 g/dL [facility] LYMPHOCYTE ABSOLUTE 1.8 1.2 - 4.0 K/ul [facility] MCV 95.3 84.0 - 103.0 Fl [facility] MPV 10.4 8.9 - 12.8 Fl [facility] BASOPHILS ABSOLUTE 0.1 0.0 - 0.2 K/ul [facility] BASOPHILS 1.3(H) 0.0 - 1.0 % [facility] HEMOGLOBIN 10.1(L) 12.0 - 16.0 g/dL [facility] RDW 17.8(H) 11.0 - 14.5 % [facility] MONOCYTE ABSOLUTE 1.1(H) 0.1 - 0.6 K/ul [facility] MONOCYTES 10.0 2.0 - 10.0 % [facility] Blood specimen (specimen) 04/24/2008 3:09 AM CDT 04/24/2008 3:21 AM CDT Riky Mejía MD HEMATOLOGY ORDERABLES Final Result Performing Organization Address [facility] Phone Number INTERFACE SYSTEM Refer to clinic/hospital department [facility] CLIA# [id number] [address] [place] [address] * (ABNORMAL) BASIC METABOLIC PANEL (04/24/2008 3:09 AM CDT) BUN 20(H) 7 - 17 mg/dL [facility] CO2 31 22 - 32 mmol/l [facility] POTASSIUM 4.6 3.5 - 5.0 mEq/L [facility] OSMOLALITY, CALCULATED 286 275 - 295 mOsm/Kg [facility] CREATININE 0.5(L) 0.7 - 1.2 mg/dL [facility] CALCIUM 8.8 8.4 - 10.5 mg/dL [facility] GLUCOSE 106 70 - 110 mg/dL [facility] CHLORIDE 100 95 - 110 mEq/L [facility] ANION GAP 11 9 - 20 mEq/L [facility] SODIUM 137 136 - 145 mEq/L [facility] Blood specimen (specimen) 04/24/2008 3:09 AM CDT 04/24/2008 3:21 AM CDT Riky Mejía MD CHEMISTRY ORDERABLES Final Result Performing Organization Address [facility] Phone Number INTERFACE SYSTEM Refer to clinic/hospital department [facility] CLIA# [id number] [address] [place] [address] * (ABNORMAL) POC GLUCOSE (04/23/2008 8:56 PM CDT) GLUCOSE POC 132(H) 60 - 100 mg/dL [facility] Venous blood specimen (specimen) 04/23/2008 8:56 PM CDT 04/24/2008 1:58 AM CDT us Riky Mejía MD POINT OF CARE TESTING Final Result Performing Organization Address City/[facility] de Phone Number INTERFACE SYSTEM Refer to clinic/hospital department [facility] CLIA# [id number] [address] [place] [address] * (ABNORMAL) POC GLUCOSE (04/23/2008 4:37 PM CDT) GLUCOSE POC 129(H) 60 - 100 mg/dL [facility] Venous blood specimen (specimen) 04/23/2008 4:37 PM CDT 04/24/2008 1:58 AM CDT us Riky Mejía MD POINT OF CARE TESTING Final Result Performing Organization Address [facility] Phone Number INTERFACE SYSTEM Refer to clinic/hospital department [facility] CLIA# [id number] [address] [place] [address] * (ABNORMAL) POC GLUCOSE (04/23/2008 11:23 AM CDT) GLUCOSE POC 147(H) 60 - 100 mg/dL [facility] Venous blood specimen (specimen) 04/23/2008 11:23 AM CDT 04/24/2008 7:04 AM CDT us Riky Mejía MD POINT OF CARE TESTING Final Result Performing Organization Address City/[facility] de Phone Number INTERFACE SYSTEM Refer to clinic/hospital department [facility] CLIA# [id number] [address] [place] [address] * (ABNORMAL) POC GLUCOSE (04/23/2008 7:53 AM CDT) GLUCOSE POC 160(H) 60 - 100 mg/dL [facility] Venous blood specimen (specimen) 04/23/2008 7:53 AM CDT 04/24/2008 7:05 AM CDT Riky Mejía MD POINT OF CARE TESTING Final Result Performing Organization Address [facility] Phone Number INTERFACE SYSTEM Refer to clinic/hospital department [facility] CLIA# [id number] [address] [place] [address] * (ABNORMAL) BASIC METABOLIC PANEL (04/23/2008 3:33 AM CDT) BUN 18(H) 7 - 17 mg/dL [facility] CO2 30 22 - 32 mmol/l [facility] POTASSIUM 4.2 3.5 - 5.0 mEq/L [facility] OSMOLALITY, CALCULATED 283 275 - 295 mOsm/Kg [facility] CREATININE 0.4(L) 0.7 - 1.2 mg/dL [facility] CALCIUM 8.4 8.4 - 10.5 mg/dL [facility] GLUCOSE 131(H) 70 - 110 mg/dL [facility] CHLORIDE 104 95 - 110 mEq/L [facility] ANION GAP 5(L) 9 - 20 mEq/L [facility] SODIUM 135(L) 136 - 145 mEq/L [facility] Blood specimen (specimen) 04/23/2008 3:33 AM CDT 04/23/2008 3:39 AM CDT Riky Mejía MD CHEMISTRY ORDERABLES Final Result Performing Organization Address [facility]/[place] [facility] Phone Number INTERFACE SYSTEM Refer to clinic/hospital department [facility] CLIA# [id number] [address] [place] [address] * (ABNORMAL) POC GLUCOSE (04/23/2008 3:22 AM CDT) GLUCOSE POC 130(H) 60 - 100 mg/dL [facility] Venous blood specimen (specimen) 04/23/2008 3:22 AM CDT 04/24/2008 7:07 AM CDT Riky Mejía MD POINT OF CARE TESTING Final Result Performing Organization Address City/[facility] de Phone Number INTERFACE SYSTEM Refer to clinic/hospital department [facility] CLIA# [id number] [address] [place] [address] * (ABNORMAL) POC GLUCOSE (04/22/2008 11:30 PM CDT) GLUCOSE POC 155(H) 60 - 100 mg/dL [facility] Venous blood specimen (specimen) 04/22/2008 11:30 PM CDT 04/23/2008 7:12 AM CDT Riky Mejía MD POINT OF CARE TESTING Final Result Performing Organization Address [facility] Phone Number INTERFACE SYSTEM Refer to clinic/hospital department [facility] CLIA# [id number] [address] [place] [address] * (ABNORMAL) POC GLUCOSE (04/22/2008 7:54 PM CDT) GLUCOSE POC 158(H) 60 - 100 mg/dL [facility] Venous blood specimen (specimen) 04/22/2008 7:54 PM CDT 04/23/2008 3:46 PM CDT Riky Mejía MD POINT OF CARE TESTING Final Result Performing Organization Address City/[facility] de Phone Number INTERFACE SYSTEM Refer to clinic/hospital department [facility] CLIA# [id number] [address] [place] [address] * (ABNORMAL) POC GLUCOSE (04/22/2008 4:09 PM CDT) GLUCOSE POC 129(H) 60 - 100 mg/dL [facility] Venous blood specimen (specimen) 04/22/2008 4:09 PM CDT 04/23/2008 3:46 PM CDT Riky Mejía MD POINT OF CARE TESTING Final Result Performing Organization Address City/[facility] de Phone Number INTERFACE SYSTEM Refer to clinic/hospital department [facility] CLIA# [id number] [address] [place] [address] * (ABNORMAL) POC GLUCOSE (04/22/2008 11:36 AM CDT) GLUCOSE POC 118(H) 60 - 100 mg/dL [facility] Venous blood specimen (specimen) 04/22/2008 11:36 AM CDT 04/23/2008 7:12 AM CDT Riky Mejía MD POINT OF CARE TESTING Final Result Performing Organization Address [facility] Phone Number INTERFACE SYSTEM Refer to clinic/hospital department [facility] CLIA# [id number] [address] [place] [address] * (ABNORMAL) POC GLUCOSE (04/22/2008 7:55 AM CDT) GLUCOSE POC 160(H) 60 - 100 mg/dL [facility] Venous blood specimen (specimen) 04/22/2008 7:55 AM CDT 04/24/2008 7:07 AM CDT Riky Mejía MD POINT OF CARE TESTING Final Result Performing Organization Address City/[facility] de Phone Number INTERFACE SYSTEM Refer to clinic/hospital department [facility] CLIA# [id number] [address] [place] [address] * (ABNORMAL) BASIC METABOLIC PANEL (04/22/2008 3:26 AM CDT) BUN 15 7 - 17 mg/dL [facility] CO2 28 22 - 32 mmol/l [facility] OSMOLALITY, CALCULATED 300(H) 275 - 295 mOsm/Kg [facility] POTASSIUM 3.0(L) 3.5 - 5.0 mEq/L [facility] CREATININE 0.2(L) 0.7 - 1.2 mg/dL [facility] CALCIUM 6.7(L) 8.4 - 10.5 mg/dL [facility] GLUCOSE 109 70 - 110 mg/dL [facility] CHLORIDE 109 95 - 110 mEq/L [facility] SODIUM 147(H) 136 - 145 mEq/L [facility] ANION GAP 13 9 - 20 mEq/L [facility] Blood specimen (specimen) 04/22/2008 3:26 AM CDT 04/22/2008 3:31 AM CDT Riky Mejía MD CHEMISTRY ORDERABLES Final Result Performing Organization Address City/[facility] [place] Phone Number INTERFACE SYSTEM Refer to clinic/hospital department [facility] CLIA# [id number] [address] [place] [address] * POC GLUCOSE (04/22/2008 3:17 AM CDT) GLUCOSE POC 73 60 - 100 mg/dL [facility] Venous blood specimen (specimen) 04/22/2008 3:17 AM CDT 04/22/2008 6:51 AM CDT Riky Mejía MD POINT OF CARE TESTING Final Result Performing Organization Address [facility] Phone Number INTERFACE SYSTEM Refer to clinic/hospital department [facility] CLIA# [id number] [address] [place] [address] * (ABNORMAL) POC GLUCOSE (04/21/2008 11:17 PM CDT) GLUCOSE POC 130(H) 60 - 100 mg/dL [facility] Venous blood specimen (specimen) 04/21/2008 11:17 PM CDT 04/22/2008 6:51 AM CDT us Riky Mejía MD POINT OF CARE TESTING Final Result Performing Organization Address City/[facility] de Phone Number INTERFACE SYSTEM Refer to clinic/hospital department [facility] CLIA# [id number] [address] [place] [address] * (ABNORMAL) POC GLUCOSE (04/21/2008 7:59 PM CDT) GLUCOSE POC 135(H) 60 - 100 mg/dL [facility] Venous blood specimen (specimen) 04/21/2008 7:59 PM CDT 04/22/2008 6:51 AM CDT us Riky Mejía MD POINT OF CARE TESTING Final Result Performing Organization Address [facility] de Phone Number INTERFACE SYSTEM Refer to clinic/hospital department [facility] CLIA# [id number] [address] [place] [address] * (ABNORMAL) POC GLUCOSE (04/21/2008 4:29 PM CDT) GLUCOSE POC 144(H) 60 - 100 mg/dL [facility] COMMENT POC Follow Protocol [facility] Venous blood specimen (specimen) 04/21/2008 4:29 PM CDT 04/22/2008 6:51 AM CDT us Riky Mejía MD POINT OF CARE TESTING Final Result Performing Organization Address City/[facility] de Phone Number INTERFACE SYSTEM Refer to clinic/hospital department [facility] CLIA# [id number] [address] [place] [address] * (ABNORMAL) POC GLUCOSE (04/21/2008 1:17 PM CDT) COMMENT POC Follow Protocol [facility] GLUCOSE POC 145(H) 60 - 100 mg/dL [facility] Venous blood specimen (specimen) 04/21/2008 1:17 PM CDT 04/22/2008 6:51 AM CDT Riky Mejía MD POINT OF CARE TESTING Final Result Performing Organization Address [facility] Phone Number INTERFACE SYSTEM Refer to clinic/hospital department [facility] CLIA# [id number] [address] [place] [address] * POTASSIUM LEVEL (04/21/2008 7:33 AM CDT) POTASSIUM 4.2 3.5 - 5.0 mEq/L [facility] Comment: Specimen slightly hemolyzed Blood specimen (specimen) 04/21/2008 7:33 AM CDT 04/21/2008 7:33 AM CDT Riky Mejía MD CHEMISTRY ORDERABLES Final Result Performing Organization Address [place] [facility] Phone Number INTERFACE SYSTEM Refer to clinic/hospital department [facility] CLIA# [id number] [address] [place] [address] * (ABNORMAL) POC GLUCOSE (04/21/2008 7:26 AM CDT) GLUCOSE POC 146(H) 60 - 100 mg/dL [facility] Venous blood specimen (specimen) 04/21/2008 7:26 AM CDT 04/22/2008 6:51 AM CDT Riky Mejía MD POINT OF CARE TESTING Final Result Performing Organization Address [facility] Phone Number INTERFACE SYSTEM Refer to clinic/hospital department [facility] CLIA# [id number] [address] [place] [address] * (ABNORMAL) POC GLUCOSE (04/21/2008 2:58 AM CDT) Pathologist [facility] GLUCOSE POC 128(H) 60 - 100 mg/dL [facility] Venous blood specimen (specimen) 04/21/2008 2:58 AM CDT 04/21/2008 7:32 AM CDT Riky Mejía MD POINT OF CARE TESTING Final Result Performing Organization Address [facility] de Phone Number INTERFACE SYSTEM Refer to clinic/hospital department [facility] CLIA# [id number] [address] [place] [address] * (ABNORMAL) BASIC METABOLIC PANEL (04/21/2008 2:00 AM CDT) Pathologist [facility] ANION GAP 7(L) 9 - 20 mEq/L [facility] SODIUM 137 136 - 145 mEq/L [facility] BUN 19(H) 7 - 17 mg/dL [facility] CO2 36(H) 22 - 32 mmol/l [facility] POTASSIUM 3.8 3.5 - 5.0 mEq/L [facility] OSMOLALITY, CALCULATED 287 275 - 295 mOsm/Kg [facility] CREATININE 0.4(L) 0.7 - 1.2 mg/dL [facility] CALCIUM 8.4 8.4 - 10.5 mg/dL [facility] GLUCOSE 142(H) 70 - 110 mg/dL [facility] CHLORIDE 98 95 - 110 mEq/L [facility] Blood specimen (specimen) 04/21/2008 2:00 AM CDT 04/21/2008 2:00 AM CDT Riky Mejía MD CHEMISTRY ORDERABLES Final Result Performing Organization Address [facility] de Phone Number INTERFACE SYSTEM Refer to clinic/hospital department [facility] CLIA# [id number] [address] [place] [address] * (ABNORMAL) POC GLUCOSE (04/20/2008 11:57 PM CDT) Pathologist [facility] GLUCOSE POC 142(H) 60 - 100 mg/dL [facility] Venous blood specimen (specimen) 04/20/2008 11:57 PM CDT 04/21/2008 12:09 AM CDT Riky Mejía MD POINT OF CARE TESTING Final Result Performing Organization Address [facility] de Phone Number INTERFACE SYSTEM Refer to clinic/hospital department [facility] CLIA# [id number] [facility] [place] [address] * (ABNORMAL) BASIC METABOLIC PANEL (04/20/2008 11:40 PM CDT) [facility] POTASSIUM 3.8 3.5 - 5.0 mEq/L [facility] Comment: Specimen slightly hemolyzed OSMOLALITY, CALCULATED 286 275 - 295 mOsm/Kg [facility] CREATININE 0.5(L) 0.7 - 1.2 mg/dL [facility] CALCIUM 8.7 8.4 - 10.5 mg/dL [facility] GLUCOSE 119(H) 70 - 110 mg/dL [facility] CHLORIDE 95 95 - 110 mEq/L [facility] ANION GAP 13 9 - 20 mEq/L [facility] SODIUM 137 136 - 145 mEq/L [facility] BUN 20(H) 7 - 17 mg/dL [facility] CO2 33(H) 22 - 32 mmol/l [facility] Blood specimen (specimen) 04/20/2008 11:40 PM CDT 04/21/2008 5:43 AM CDT us Riky Mejía MD CHEMISTRY ORDERABLES Final Result Performing Organization Address [facility] Co de Phone Number INTERFACE SYSTEM Refer to clinic/hospital department [facility] CLIA# [id number] [address] [place] [address] * (ABNORMAL) POC GLUCOSE (04/20/2008 7:17 PM CDT) GLUCOSE POC 134(H) 60 - 100 mg/dL [facility] Venous blood specimen (specimen) 04/20/2008 7:17 PM CDT 04/21/2008 12:00 AM CDT Riky Mejía MD POINT OF CARE TESTING Final Result Performing Organization Address [facility] de Phone Number INTERFACE SYSTEM Refer to clinic/hospital department [facility] CLIA# [id number] [address] [place] [address] * POTASSIUM LEVEL (04/20/2008 4:09 PM CDT) POTASSIUM 4.1 3.5 - 5.0 mEq/L [facility] Blood specimen (specimen) 04/20/2008 4:09 PM CDT 04/20/2008 4:09 PM CDT Riky Mejía MD CHEMISTRY ORDERABLES Final Result Performing Organization Address [facility] de Phone Number INTERFACE SYSTEM Refer to clinic/hospital department [facility] CLIA# [id number] [address] [place] [address] * (ABNORMAL) POC GLUCOSE (04/20/2008 3:59 PM CDT) GLUCOSE POC 118(H) 60 - 100 mg/dL [facility] Venous blood specimen (specimen) 04/20/2008 3:59 PM CDT 04/21/2008 12:00 AM CDT Riky Mejía MD POINT OF CARE TESTING Final Result Performing Organization Address [facility] de Phone Number INTERFACE SYSTEM Refer to clinic/hospital department [facility] CLIA# [id number] [address] [place] [address] * (ABNORMAL) POC GLUCOSE (04/20/2008 12:02 PM CDT) GLUCOSE POC 158(H) 60 - 100 mg/dL [facility] Venous blood specimen (specimen) 04/20/2008 12:02 PM CDT 04/21/2008 12:00 AM CDT Riky Mejía MD POINT OF CARE TESTING Final Result INTERFACE SYSTEM Refer to clinic/hospital department [facility] CLIA# [id number] [address] [place] [address] * (ABNORMAL) POC ISTAT EG 7+ (04/20/2008 10:06 AM CDT) SPECIMEN TYPE Arterial [facility] Comment: Test Performed By [id number] Pulse OX: 97 Hemoglobin calculated from Hematocrit result PCO2 TEMP CORRECT 48(H) 35 - 45 mmHg [facility] HEMOGLOBIN POC 10.5 +/-3 g/dL 12.0 - 16.0 g/dL [facility] POTASSIUM 3.8 3.5 - 4.9 mEq/L [facility] PH TEMP CORRECT 7.47(H) 7.35 - 7.45 Unit [facility] HCO3 (CALC) POC 35.4(H) 22.0 - 26.0 mmol/l [facility] TCO2 (CALC) POC 37(H) 23 - 27 mmol/l [facility] FIO2 40 [facility] PO2 90 80 - 105 mmHg [facility] CALCIUM IONIZED 1.06(L) 1.12 - 1.32 mmol/l [facility] HEMATOCRIT ABG 31(L) 38 - 51 % [facility] PCO2 POC 48(H) 35 - 45 mmHg [facility] SODIUM 134(L) 138 - 146 mEq/L [facility] BASE EXCESS 12(H) -2 - 3 mmol/l [facility] PH 7.47(H) 7.35 - 7.45 Unit [facility] O2 SATURATION 97 95 - 98 % [facility] PO2 TEMP CORRECT 90 80 - 105 mmHg [facility] Arterial blood specimen (specimen) 04/20/2008 10:06 AM CDT 04/20/2008 11:14 AM CDT us Riky Mejía MD POINT OF CARE TESTING COM F inal Result Performing Organization Address [facility] de Phone Number INTERFACE SYSTEM Refer to clinic/hospital department [facility] CLIA# [id number] [address] [place] [address] * POTASSIUM LEVEL (04/20/2008 7:15 AM CDT) POTASSIUM 4.5 3.5 - 5.0 mEq/L [facility] Blood specimen (specimen) 04/20/2008 7:15 AM CDT 04/20/2008 7:20 AM CDT us Riky Mejía MD CHEMISTRY ORDERABLES Final Result Performing Organization Address [facility] de Phone Number INTERFACE SYSTEM Refer to clinic/hospital department [facility] CLIA# [id number] [address] [place] [address] * (ABNORMAL) POC GLUCOSE (04/20/2008 7:11 AM CDT) GLUCOSE POC 138(H) 60 - 100 mg/dL [facility] Venous blood specimen (specimen) 04/20/2008 7:11 AM CDT 04/20/2008 11:59 PM CDT us Riky Mejía MD POINT OF CARE TESTING Final Result Performing Organization Address City/[facility] de Phone Number INTERFACE SYSTEM Refer to clinic/hospital department [facility] CLIA# [id number] [address] [place] [address] * (ABNORMAL) POC ISTAT EG 7+ (04/20/2008 4:30 AM CDT) FIO2 30 [facility] HEMATOCRIT ABG 29(L) 38 - 51 % [facility] PO2 84 80 - 105 mmHg [facility] CALCIUM IONIZED 1.11(L) 1.12 - 1.32 mmol/l [facility] PCO2 POC 44 35 - 45 mmHg [facility] BASE EXCESS 14(H) -2 - 3 mmol/l [facility] SODIUM 131(L) 138 - 146 mEq/L [facility] PH 7.53(H) 7.35 - 7.45 Unit [facility] PO2 TEMP CORRECT 84 80 - 105 mmHg [facility] O2 SATURATION 97 95 - 98 % [facility] SPECIMEN TYPE Arterial [facility] Comment: Test Performed By [id number] PEEP: 06 Pressure Support: 14 Pulse OX: 96 Hemoglobin calculated from Hematocrit result PCO2 TEMP CORRECT 44 35 - 45 mmHg [facility] POTASSIUM 4.0 3.5 - 4.9 mEq/L [facility] HEMOGLOBIN POC 9.9 +/-3 g/dL 12.0 - 16.0 g/dL [facility] PH TEMP CORRECT 7.53(H) 7.35 - 7.45 Unit [facility] TCO2 (CALC) POC 38(H) 23 - 27 mmol/l [facility] HCO3 (CALC) POC 36.4(H) 22.0 - 26.0 mmol/l [facility] Arterial blood specimen (specimen) 04/20/2008 4:30 AM CDT 04/20/2008 5:54 AM CDT us Riky Mejía MD POINT OF CARE TESTING COM F inal Result INTERFACE SYSTEM Refer to clinic/hospital department [facility] CLIA# [id number] [address] [place] [address] * (ABNORMAL) DIFFERENTIAL, MANUAL (04/20/2008 4:04 AM CDT) POIKILOCYTES 1+(A) None Seen [facility] MONOCYTE 9 4 - 10 % [facility] RBC MORPHOLOGY Abnormal(A ) Normal [facility] BANDS 11(H) 0 - 6 % [facility] POLYCHROMASIA 1+(A) None Seen [facility] EOSINOPHILS 1 0 - 3 % [facility] ANISOCYTOSIS 1+(A) None Seen [facility] PLATELET EST. Normal Normal [facility] LYMPHOCYTES 17(L) 24 - 44 % [facility] NEUTROPHILS, SEG 62 36 - 66 % [facility] Blood specimen (specimen) 04/20/2008 4:04 AM CDT 04/20/2008 4:16 AM CDT Narrative INTERFACE SYSTEM - 04/20/2008 5:12 AM CDT Differential ordered by policy. Riky Mejía MD HEMATOLOGY ORDERABLES COM F inal Result INTERFACE SYSTEM Refer to clinic/hospital department [facility] CLIA# [id number] [address] [place] [address] * (ABNORMAL) PT AND APTT (04/20/2008 4:04 AM CDT) PTT 31.3 22.5 - 36.5 Secs [facility] Comment: Therapeutic Range: Hi-level PE/DVT heparin protocol 80.1 -95.0 sec Lo-level PE/DVT heparin protocol 67.1 - 80.0 sec Cardiac Heparin Protocol 67.1 - 85.0 sec Neuro Heparin Protocol 67.1 - 80.0 sec As of 09/25/2007 note change in APTT Normal Range. PROTIME 17.4(H) 12.8 - 15.8 Secs [facility] Comment:As of 2007 not e change in normal range. INR 1.3 [facility] Comment: Expected Values for INR: DVT/PE Goal INR 2.5; range 2.0 - 3.0 Valve Replacement Tissue Goal INR 2.5; range 2.0 - 3.0 Mechanical Goal INR 3.0; range 2.5 - 3.5 POST-GA Goal INR 2.5; range 2.0 - 3.0 or Goal 3.0; range 2.5 - 3.5 Atrial Fibrillation Goal INR 2.5; range 2.0 - 3.0 Ischemic Stroke Goal INR 2.5; range 2.0 - 3.0 For additional information see Guidelines for Anticoagulation available from the pharmacy [facility] [phone] Blood specimen (specimen) 04/20/2008 4:04 AM CDT 04/20/2008 4:16 AM CDT Riky Mejía MD HEMATOLOGY ORDERABLES Edite d INTERFACE SYSTEM Refer to clinic/hospital department [facility] CLIA# [id number] [address] [place] [address] * (ABNORMAL) CBC WITH DIFFERENTIAL (04/20/2008 4:04 AM CDT) HEMATOCRIT 30.6(L) 36.0 - 46.0 % [facility] PLATELETS 436 140 - 440 K/ul [facility] RBC 3.30(L) 4.20 - 5.40 Mil/ul [facility] MCHC 32.0 30.0 - 35.0 g/dL [facility] MCV 92.7 84.0 - 103.0 Fl [facility] MPV 10.2 8.9 - 12.8 Fl [facility] HEMOGLOBIN 9.8(L) 12.0 - 16.0 g/dL [facility] RDW 17.3(H) 11.0 - 14.5 % [facility] WBC 13.0(H) 4.5 - 11.0 K/ul [facility] MCH 29.7 27.0 - 34.0 pg [facility] Blood specimen (specimen) 04/20/2008 4:04 AM CDT 04/20/2008 4:16 AM CDT Riky Mejía MD HEMATOLOGY ORDERABLES Edite d Performing Organization Address [facility] Phone Number INTERFACE SYSTEM Refer to clinic/hospital department [facility] CLIA# [id number] [address] [place] [address] * (ABNORMAL) BASIC METABOLIC PANEL (04/20/2008 4:04 AM CDT) BUN 19(H) 7 - 17 mg/dL [facility] CO2 33(H) 22 - 32 mmol/l [facility] POTASSIUM 4.1 3.5 - 5.0 mEq/L [facility] OSMOLALITY, CALCULATED 280 275 - 295 mOsm/Kg [facility] CREATININE 0.5(L) 0.7 - 1.2 mg/dL [facility] CALCIUM 8.6 8.4 - 10.5 mg/dL [facility] GLUCOSE 146(H) 70 - 110 mg/dL [facility] CHLORIDE 97 95 - 110 mEq/L [facility] ANION GAP 7(L) 9 - 20 mEq/L [facility] SODIUM 133(L) 136 - 145 mEq/L [facility] Blood specimen (specimen) 04/20/2008 4:04 AM CDT 04/20/2008 4:40 AM CDT us Riky Mejía MD CHEMISTRY ORDERABLES Final Result Performing Organization Address [facility] Phone Number INTERFACE SYSTEM Refer to clinic/hospital department [facility] CLIA# [id number] [address] [place] [address] * (ABNORMAL) POC GLUCOSE (04/20/2008 3:59 AM CDT) GLUCOSE POC 160(H) 60 - 100 mg/dL [facility] Venous blood specimen (specimen) 04/20/2008 3:59 AM CDT 04/20/2008 6:38 AM CDT Riky Mejía MD POINT OF CARE TESTING Final Result Performing Organization Address [facility] Phone Number INTERFACE SYSTEM Refer to clinic/hospital department [facility] CLIA# [id number] [address] [place] [address] * POTASSIUM LEVEL (04/19/2008 11:37 PM CDT) POTASSIUM 4.3 3.5 - 5.0 mEq/L [facility] Blood specimen (specimen) 04/19/2008 11:37 PM CDT 04/19/2008 11:46 PM CDT Riky Mejía MD CHEMISTRY ORDERABLES Final Result Performing Organization Address [place] [facility] Phone Number INTERFACE SYSTEM Refer to clinic/hospital [facility] CLIA# [id number] [address] [place] [address] * (ABNORMAL) POC GLUCOSE (04/19/2008 11:30 PM CDT) GLUCOSE POC 156(H) 60 - 100 mg/dL [facility] Venous blood specimen (specimen) 04/19/2008 11:30 PM CDT 04/20/2008 6:37 AM CDT us Riky Mejía MD POINT OF CARE TESTING Final Result Performing Organization Address [facility] Phone Number INTERFACE SYSTEM Refer to clinic/hospital [facility] CLIA# [id number] [address] [place] [address] * (ABNORMAL) DIFFERENTIAL, MANUAL (04/19/2008 8:35 PM CDT) MONOCYTE 12(H) 4 - 10 % [facility] ANISOCYTOSIS 1+(A) None Seen [facility] BANDS 18(H) 0 - 6 % [facility] PLATELET EST. Normal Normal [facility] METAMYELOCYTE 2(H) 0 - 1 % [facility] POLYCHROMASIA 1+(A) None Seen [facility] LYMPHOCYTES 6(L) 24 - 44 % [facility] RBC MORPHOLOGY Abnormal(A ) Normal [facility] NEUTROPHILS, SEG 57 36 - 66 % [facility] MYELOCYTES 5(H) <=1 % [facility] GIANT PLATELETS Present(A) [facility] Blood specimen (specimen) 04/19/2008 8:35 PM CDT 04/19/2008 8:35 PM CDT Narrative INTERFACE SYSTEM - 04/19/2008 10:07 PM CDT Differential ordered by policy. Riky Mejía MD HEMATOLOGY ORDERABLES COM F inal Result INTERFACE SYSTEM Refer to clinic/hospital department [facility] CLIA# [id number] [place] [address] * (ABNORMAL) PT AND APTT (04/19/2008 8:35 PM CDT) INR 1.3 [facility] Comment: Expected Values for INR: DVT/PE Goal INR 2.5; range 2.0 - 3.0 Valve Replacement Tissue Goal INR 2.5; range 2.0 - 3.0 Mechanical Goal INR 3.0; range 2.5 - 3.5 POST-GA Goal INR 2.5; range 2.0 - 3.0 or Goal 3.0; range 2.5 - 3.5 Atrial Fibrillation Goal INR 2.5; range 2.0 - 3.0 Ischemic Stroke Goal INR 2.5; range 2.0 - 3.0 For additional information see Guidelines for Anticoagulation available from the pharmacy [facility]. [phone] PROTIME 17.0(H) 12.8 - 15.8 Secs [facility] Comment:As of 2007 not e change in normal range. PTT 33.0 22.5 - 36.5 Secs [facility] Comment: Therapeutic Range: Hi-level PE/DVT heparin protocol 80.1 -95.0 sec Lo-level PE/DVT heparin protocol 67.1 - 80.0 sec Cardiac Heparin Protocol 67.1 - 85.0 sec Neuro Heparin Protocol 67.1 - 80.0 sec As of 09/25/2007 note change in APTT Normal Range. Blood specimen (specimen) 04/19/2008 8:35 PM CDT 04/19/2008 8:35 PM CDT us Riky Mejía MD HEMATOLOGY ORDERABLES Edite d Performing Organization Address City/State/[facility] Co de Phone Number INTERFACE SYSTEM Refer to clinic/hospital department [facility] CLIA# [id number] [address] [place] [address] * (ABNORMAL) CBC WITH DIFFERENTIAL (04/19/2008 8:35 PM CDT) RBC 3.37(L) 4.20 - 5.40 Mil/ul [facility] MCHC 31.6 30.0 - 35.0 g/dL [facility] LYMPHOCYTE ABSOLUTE 1.8 1.2 - 4.0 K/ul [facility] LYMPHOCYTES 12.2(L) 24.0 - 44.0 % [facility] MCV 92.9 84.0 - 103.0 Fl [facility] BASOPHILS 0.9 0.0 - 1.0 % [facility] MPV 10.4 8.9 - 12.8 Fl [facility] NRBC 1 <=1 [facility] BASOPHILS ABSOLUTE 0.1 0.0 - 0.2 K/ul [facility] HEMOGLOBIN 9.9(L) 12.0 - 16.0 g/dL [facility] MONOCYTES 10.2(H) 2.0 - 10.0 % [facility] RDW 17.4(H) 11.0 - 14.5 % [facility] MONOCYTE ABSOLUTE 1.5(H) 0.1 - 0.6 K/ul [facility] NEUTROPHILS 75.3(H) 42.2 - 75.2 % [facility] MCH 29.4 27.0 - 34.0 pg [facility] WBC 14.9(H) 4.5 - 11.0 K/ul [facility] Comment: WBC Corrected for Nucleated RBC'S NEUTROPHIL ABSOLUTE 11.3(H) 2.0 - 8.0 K/ul [facility] HEMATOCRIT 31.3(L) 36.0 - 46.0 % [facility] PLATELETS 459(H) 140 - 440 K/ul [facility] EOSINOPHIL ABSOLUTE 0.2 0.0 - 0.7 K/ul [facility] EOSINOPHILS 1.4 0.0 - 7.0 % [facility] Blood specimen (specimen) 04/19/2008 8:35 PM CDT 04/19/2008 8:35 PM CDT us Riky Mejía MD HEMATOLOGY ORDERABLES Edite d Performing Organization Address City/[facility] Co de Phone Number INTERFACE SYSTEM Refer to clinic/hospital department [facility] CLIA# [id number] [address] [place] [address] * (ABNORMAL) POC GLUCOSE (04/19/2008 8:31 PM CDT) GLUCOSE POC 115(H) 60 - 100 mg/dL [facility] Venous blood specimen (specimen) 04/19/2008 8:31 PM CDT 04/20/2008 6:37 AM CDT Riky Mejía MD POINT OF CARE TESTING Final Result Performing Organization Address City/[facility] Co de Phone Number INTERFACE SYSTEM Refer to clinic/hospital department [facility] CLIA# [id number] [address] [place] [address] * XR CHEST PA OR AP (04/19/2008 [...] By: Frederic Vieyra M.D. Date Signed: 04/19/08 Procedure Note [...] By: Frederic Vieyra M.D. Date Signed: 04/19/08 us Riky Mejía MD DIAGNOSTIC IMAGING ORDERABL ES Final Result * (ABNORMAL) POC GLUCOSE (04/19/2008 4:58 PM CDT) GLUCOSE POC 125(H) 60 - 100 mg/dL [facility] Venous blood specimen (specimen) 04/19/2008 4:58 PM CDT 04/20/2008 7:00 AM CDT Riky Mejía MD POINT OF CARE TESTING Final Result Performing Organization Address [facility] Phone Number INTERFACE SYSTEM Refer to clinic/hospital department [facility] CLIA# [id number] [address] [place] [address] * POTASSIUM LEVEL (04/19/2008 4:30 PM CDT) POTASSIUM 4.0 3.5 - 5.0 mEq/L [facility] Blood specimen (specimen) 04/19/2008 4:30 PM CDT 04/19/2008 4:30 PM CDT Riky Mejía MD CHEMISTRY ORDERABLES Final Result Performing Organization Address [place] [facility] Phone Number INTERFACE SYSTEM Refer to clinic/hospital department [facility] CLIA# [id number] [address] [place] [address] * (ABNORMAL) POC GLUCOSE (04/19/2008 12:04 PM CDT) GLUCOSE POC 139(H) 60 - 100 mg/dL [facility] Venous blood specimen (specimen) 04/19/2008 12:04 PM CDT 04/20/2008 7:00 AM CDT us Riky Mejía MD POINT OF CARE TESTING Final Result Performing Organization Address [facility] Phone Number INTERFACE SYSTEM Refer to clinic/hospital department [facility] CLIA# [id number] [address] [place] [address] * (ABNORMAL) POC GLUCOSE (04/19/2008 8:28 AM CDT) GLUCOSE POC 144(H) 60 - 100 mg/dL [facility] Venous blood specimen (specimen) 04/19/2008 8:28 AM CDT 04/20/2008 7:00 AM CDT Riky Mejía MD POINT OF CARE TESTING Final Result INTERFACE SYSTEM Refer to clinic/hospital department [facility] CLIA# [id number] [address] [place] [address] * XR CHEST PA OR AP (04/19/2008 [...] By: Tyler Manrique D.O. Date Signed: 04/19/08 Procedure Note [...] By: Tyler Manrique D.O. Date Signed: 04/19/08 us Riky Mejía MD DIAGNOSTIC IMAGING ORDERABL ES Final Result * (ABNORMAL) DIFFERENTIAL, MANUAL (04/19/2008 3:20 AM CDT) ANISOCYTOSIS 1+(A) None Seen [facility] LYMPHOCYTES 15(L) 24 - 44 % [facility] MYELOCYTES 1 <=1 % [facility] MONOCYTE 4 4 - 10 % [facility] NEUTROPHILS, SEG 73(H) 36 - 66 % [facility] POIKILOCYTES 1+(A) None Seen [facility] PLATELET EST. Normal Normal [facility] BANDS 6 0 - 6 % [facility] POLYCHROMASIA Present(A) None Seen [facility] EOSINOPHILS 1 0 - 3 % [facility] Blood specimen (specimen) 04/19/2008 3:20 AM CDT 04/19/2008 3:20 AM CDT Narrative INTERFACE SYSTEM - 04/19/2008 3:58 AM CDT Differential ordered by policy. us Riky Mejía MD HEMATOLOGY ORDERABLES COM F inal Result INTERFACE SYSTEM Refer to clinic/hospital department [facility] CLIA# [id number] [address] [place] [address] * (ABNORMAL) COMPREHENSIVE METABOLIC PANEL (04/19/2008 3:20 AM CDT) GLUCOSE 138(H) 70 - 110 mg/dL [facility] CHLORIDE 94(L) 95 - 110 mEq/L [facility] ALBUMIN/GLOBULIN RATIO 0.9(L) 1.0 - 2.3 [facility] ALKALINE PHOSPHATASE 209(H) 25 - 100 U/L [facility] SODIUM 136 136 - 145 mEq/L [facility] BILIRUBIN TOTAL 1.6(H) 0.3 - 1.2 mg/dL [facility] TOTAL PROTEIN 5.6(L) 6.3 - 8.2 g/dL [facility] BUN 19(H) 7 - 17 mg/dL [facility] AST 73(H) 8 - 33 U/L [facility] CO2 37(H) 22 - 32 mmol/l [facility] ANION GAP 9 9 - 20 mEq/L [facility] ALBUMIN 2.6(L) 3.5 - 5.0 g/dL [facility] POTASSIUM 3.9 3.5 - 5.0 mEq/L [facility] GLOBULIN (CALC) 3.0 2.4 - 3.9 g/dL [facility] CREATININE 0.5(L) 0.7 - 1.2 mg/dL [facility] CALCIUM 8.6 8.4 - 10.5 mg/dL [facility] OSMOLALITY, CALCULATED 285 275 - 295 mOsm/Kg [facility] ALT 68(H) 4 - 36 IU/L [facility] Blood specimen (specimen) 04/19/2008 3:20 AM CDT 04/19/2008 3:20 AM CDT us Riky Mejía MD CHEMISTRY ORDERABLES Final Result INTERFACE SYSTEM Refer to clinic/hospital department [facility] CLIA# [id number] [address] [place] [address] * (ABNORMAL) CBC WITH DIFFERENTIAL (04/19/2008 3:20 AM CDT) WBC 13.9(H) 4.5 - 11.0 K/ul [facility] MCH 29.1 27.0 - 34.0 pg [facility] HEMATOCRIT 30.7(L) 36.0 - 46.0 % [facility] PLATELETS 390 140 - 440 K/ul [facility] RBC 3.33(L) 4.20 - 5.40 Mil/ul [facility] MCHC 31.6 30.0 - 35.0 g/dL [facility] MPV 10.2 8.9 - 12.8 Fl [facility] MCV 92.2 84.0 - 103.0 Fl [facility] HEMOGLOBIN 9.7(L) 12.0 - 16.0 g/dL [facility] RDW 16.9(H) 11.0 - 14.5 % [facility] Blood specimen (specimen) 04/19/2008 3:20 AM CDT 04/19/2008 3:20 AM CDT Riky Mejía MD HEMATOLOGY ORDERABLES Edite d Performing Organization Address [facility] Phone Number INTERFACE SYSTEM Refer to clinic/hospital department [facility] CLIA# [id number] [address] [place] [address] * POTASSIUM LEVEL (04/18/2008 11:41 PM CDT) POTASSIUM 3.9 3.5 - 5.0 mEq/L [facility] Blood specimen (specimen) 04/18/2008 11:41 PM CDT 04/18/2008 11:41 PM CDT Riky Mejía MD CHEMISTRY ORDERABLES Final Result Performing Organization Address [facility] Phone Number INTERFACE SYSTEM Refer to clinic/hospital department [facility] CLIA# [id number] [address] [place] [address] * POTASSIUM LEVEL (04/18/2008 3:49 PM CDT) POTASSIUM 4.0 3.5 - 5.0 mEq/L [facility] Blood specimen (specimen) 04/18/2008 3:49 PM CDT 04/18/2008 3:49 PM CDT Riky Mejía MD CHEMISTRY ORDERABLES Final Result Performing Organization Address City/[facility] de Phone Number INTERFACE SYSTEM Refer to clinic/hospital department [facility] CLIA# [id number] [address] [place] [address] * (ABNORMAL) POC GLUCOSE (04/18/2008 7:29 AM CDT) Pathologist [facility] GLUCOSE POC 153(H) 60 - 100 mg/dL [facility] Venous blood specimen (specimen) 04/18/2008 7:29 AM CDT 04/19/2008 6:47 AM CDT Riky Mejía MD POINT OF CARE TESTING Final Result Performing Organization Address [facility] de Phone Number INTERFACE SYSTEM Refer to clinic/hospital department [facility] CLIA# [id number] [address] [place] [address] * (ABNORMAL) CBC WITH DIFFERENTIAL (04/18/2008 3:29 AM CDT) [facility] RDW 17.0(H) 11.0 - 14.5 % [facility] BASOPHILS ABSOLUTE 0.2 0.0 - 0.2 K/ul [facility] BASOPHILS 1.0 0.0 - 1.0 % [facility] WBC 14.5(H) 4.5 - 11.0 K/ul [facility] MCH 29.0 27.0 - 34.0 pg [facility] MONOCYTE ABSOLUTE 1.1(H) 0.1 - 0.6 K/ul [facility] MONOCYTES 7.3 2.0 - 10.0 % [facility] HEMATOCRIT 30.5(L) 36.0 - 46.0 % [facility] NEUTROPHIL ABSOLUTE 12.1(H) 2.0 - 8.0 K/ul [facility] NEUTROPHILS 83.1(H) 42.2 - 75.2 % [facility] PLATELETS 332 140 - 440 K/ul [facility] RBC 3.31(L) 4.20 - 5.40 Mil/ul [facility] MCHC 31.5 30.0 - 35.0 g/dL [facility] EOSINOPHILS 1.3 0.0 - 7.0 % [facility] PERIPHERAL BLOOD SMEAR REVIEW Automated Diff [facility] EOSINOPHIL ABSOLUTE 0.2 0.0 - 0.7 K/ul [facility] MCV 92.1 84.0 - 103.0 Fl [facility] LYMPHOCYTES 7.3(L) 24.0 - 44.0 % [facility] MPV 10.3 8.9 - 12.8 Fl [facility] LYMPHOCYTE ABSOLUTE 1.1(L) 1.2 - 4.0 K/ul [facility] HEMOGLOBIN 9.6(L) 12.0 - 16.0 g/dL [facility] Blood specimen (specimen) 04/18/2008 3:29 AM CDT 04/18/2008 3:35 AM CDT us Riky Mejía MD HEMATOLOGY ORDERABLES Edite d INTERFACE SYSTEM Refer to clinic/hospital department [facility] CLIA# [id number] [address] [place] [address] * (ABNORMAL) COMPREHENSIVE METABOLIC PANEL (04/18/2008 3:29 AM CDT) AST 133(H) 8 - 33 U/L [facility] ALBUMIN/GLOBULIN RATIO 0.9(L) 1.0 - 2.3 [facility] POTASSIUM 4.1 3.5 - 5.0 mEq/L [facility] ANION GAP 6(L) 9 - 20 mEq/L [facility] ALBUMIN 2.4(L) 3.5 - 5.0 g/dL [facility] CREATININE 0.4(L) 0.7 - 1.2 mg/dL [facility] ALT 75(H) 4 - 36 IU/L [facility] CALCIUM 8.6 8.4 - 10.5 mg/dL [facility] GLUCOSE 134(H) 70 - 110 mg/dL [facility] ALKALINE PHOSPHATASE 167(H) 25 - 100 U/L [facility] CHLORIDE 96 95 - 110 mEq/L [facility] OSMOLALITY, CALCULATED 287 275 - 295 mOsm/Kg [facility] GLOBULIN (CALC) 2.8 2.4 - 3.9 g/dL [facility] TOTAL PROTEIN 5.2(L) 6.3 - 8.2 g/dL [facility] SODIUM 137 136 - 145 mEq/L [facility] BILIRUBIN TOTAL 2.1(H) 0.3 - 1.2 mg/dL [facility] CO2 39(H) 22 - 32 mmol/l [facility] BUN 20(H) 7 - 17 mg/dL [facility] Blood specimen (specimen) 04/18/2008 3:29 AM CDT 04/18/2008 3:35 AM CDT us Riky Mejía MD CHEMISTRY ORDERABLES Final Result Performing Organization Address [facility] de Phone Number INTERFACE SYSTEM Refer to clinic/hospital department [facility] CLIA# [id number] [address] [place] [address] * POTASSIUM LEVEL (04/17/2008 6:15 PM CDT) POTASSIUM 3.8 3.5 - 5.0 mEq/L [facility] Blood specimen (specimen) 04/17/2008 6:15 PM CDT 04/17/2008 6:19 PM CDT Narrative INTERFACE SYSTEM - 04/17/2008 6:44 PM CDT stat us Riky Mejía MD CHEMISTRY ORDERABLES Final Result Performing Organization Address City/[facility] de Phone Number INTERFACE SYSTEM Refer to clinic/hospital department [facility] CLIA# [id number] [address] [place] [address] * (ABNORMAL) POC GLUCOSE (04/17/2008 6:10 PM CDT) GLUCOSE POC 103(H) 60 - 100 mg/dL [facility] Venous blood specimen (specimen) 04/17/2008 6:10 PM CDT 04/18/2008 7:19 AM CDT Riky Mejía MD POINT OF CARE TESTING Final Result Performing Organization Address [facility] de Phone Number INTERFACE SYSTEM Refer to clinic/hospital department [facility] CLIA# [id number] [facility] [place] [address] * (ABNORMAL) POC GLUCOSE (04/17/2008 8:18 AM CDT) GLUCOSE POC 149(H) 60 - 100 mg/dL [facility] Venous blood specimen (specimen) 04/17/2008 8:18 AM CDT 04/18/2008 7:18 AM CDT Riky Mejía MD POINT OF CARE TESTING Final Result Performing Organization Address [facility] de Phone Number INTERFACE SYSTEM Refer to clinic/hospital department [facility] CLIA# [id number] [facility] [place] [address] * (ABNORMAL) POC ISTAT EG 7+ (04/17/2008 5:31 AM CDT) SODIUM 138 138 - 146 mEq/L [facility] PH 7.49(H) 7.35 - 7.45 Unit [facility] PO2 TEMP CORRECT 92 80 - 105 mmHg [facility] O2 SATURATION 98 95 - 98 % [facility] SPECIMEN TYPE Arterial [facility] Comment: Test Performed By [id number] Tidal volume: 450 PEEP: 08 Rate: 10 Pulse OX: 100 Hemoglobin calculated from Hematocrit result PCO2 TEMP CORRECT 50(H) 35 - 45 mmHg [facility] POTASSIUM 3.6 3.5 - 4.9 mEq/L [facility] HEMOGLOBIN POC 9.5 +/-3 g/dL 12.0 - 16.0 g/dL [facility] PH TEMP CORRECT 7.49(H) 7.35 - 7.45 Unit [facility] TCO2 (CALC) POC 40(H) 23 - 27 mmol/l [facility] HCO3 (CALC) POC 38.0(H) 22.0 - 26.0 mmol/l [facility] FIO2 30 [facility] HEMATOCRIT ABG 28(L) 38 - 51 % [facility] PO2 92 80 - 105 mmHg [facility] CALCIUM IONIZED 1.04(L) 1.12 - 1.32 mmol/l [facility] PCO2 POC 50(H) 35 - 45 mmHg [facility] BASE EXCESS 15(H) -2 - 3 mmol/l [facility] Arterial blood specimen (specimen) 04/17/2008 5:31 AM CDT 04/17/2008 6:05 AM CDT Riky Mejía MD POINT OF CARE TESTING COM F inal Result INTERFACE SYSTEM Refer to clinic/hospital department [facility]# [id number] [address] [place] [address] * (ABNORMAL) POC ISTAT EG 7+ (04/17/2008 4:22 AM CDT) PCO2 POC 52(H) 35 - 45 mmHg [facility] BASE EXCESS 19(H) -2 - 3 mmol/l [facility] SODIUM 137(L) 138 - 146 mEq/L [facility] PH 7.51(H) 7.35 - 7.45 Unit [facility] PO2 TEMP CORRECT 448(H) 80 - 105 mmHg [facility] O2 SATURATION 100(H) 95 - 98 % [facility] SPECIMEN TYPE Arterial [facility] Comment: Test Performed By [id number] Tidal volume: 500 PEEP: 08 Rate: 12 Pulse OX: 100 Hemoglobin calculated from Hematocrit result PCO2 TEMP CORRECT 52(H) 35 - 45 mmHg [facility] POTASSIUM 3.7 3.5 - 4.9 mEq/L [facility] HEMOGLOBIN POC 10.2 +/-3 g/dL 12.0 - 16.0 g/dL [facility] PH TEMP CORRECT 7.51(H) 7.35 - 7.45 Unit [facility] TCO2 (CALC) POC 44(H) 23 - 27 mmol/l [facility] HCO3 (CALC) POC 41.9(H) 22.0 - 26.0 mmol/l [facility] FIO2 30 [facility] HEMATOCRIT ABG 30(L) 38 - 51 % [facility] PO2 448(H) 80 - 105 mmHg [facility] CALCIUM IONIZED 1.01(L) 1.12 - 1.32 mmol/l [facility] Arterial blood specimen (specimen) 04/17/2008 4:22 AM CDT 04/17/2008 5:21 AM CDT us Riky Mejía MD POINT OF CARE TESTING COM F inal Result INTERFACE SYSTEM Refer to clinic/hospital department [facility] CLIA# [id number] [address] [place] [address] * (ABNORMAL) CBC WITH DIFFERENTIAL (04/17/2008 2:07 AM CDT) BASOPHILS ABSOLUTE 0.1 0.0 - 0.2 K/ul [facility] BASOPHILS 0.8 0.0 - 1.0 % [facility] HEMOGLOBIN 9.4(L) 12.0 - 16.0 g/dL [facility] RDW 16.7(H) 11.0 - 14.5 % [facility] MONOCYTE ABSOLUTE 1.1(H) 0.1 - 0.6 K/ul [facility] MONOCYTES 7.2 2.0 - 10.0 % [facility] WBC 14.8(H) 4.5 - 11.0 K/ul [facility] MCH 29.2 27.0 - 34.0 pg [facility] NEUTROPHIL ABSOLUTE 12.7(H) 2.0 - 8.0 K/ul [facility] NEUTROPHILS 86.0(H) 42.2 - 75.2 % [facility] HEMATOCRIT 28.9(L) 36.0 - 46.0 % [facility] EOSINOPHILS 1.2 0.0 - 7.0 % [facility] PLATELETS 287 140 - 440 K/ul [facility] PERIPHERAL BLOOD SMEAR REVIEW Automated Diff [facility] EOSINOPHIL ABSOLUTE 0.2 0.0 - 0.7 K/ul [facility] RBC 3.22(L) 4.20 - 5.40 Mil/ul [facility] LYMPHOCYTES 4.8(L) 24.0 - 44.0 % [facility] MCHC 32.5 30.0 - 35.0 g/dL [facility] LYMPHOCYTE ABSOLUTE 0.7(L) 1.2 - 4.0 K/ul [facility] MCV 89.8 84.0 - 103.0 Fl [facility] MPV 10.3 8.9 - 12.8 Fl [facility] Blood specimen (specimen) 04/17/2008 2:07 AM CDT 04/17/2008 2:12 AM CDT Riky Mejía MD HEMATOLOGY ORDERABLES Final Result INTERFACE SYSTEM Refer to clinic/hospital department [facility] CLIA# [id number] [address] [place] [address] * PHOSPHORUS (04/17/2008 2:07 AM CDT) PHOSPHORUS 3.0 2.5 - 4.6 mg/dL [facility] Blood specimen (specimen) 04/17/2008 2:07 AM CDT 04/17/2008 2:12 AM CDT Riky Mejía MD CHEMISTRY ORDERABLES Final Result Performing Organization Address City/State/[facility] Co de Phone Number INTERFACE SYSTEM Refer to clinic/hospital department [facility] CLIA# [id number] [facility] [place] [address] * (ABNORMAL) COMPREHENSIVE METABOLIC PANEL (04/17/2008 2:07 AM CDT) Pathologist [facility] GLOBULIN (CALC) 2.7 2.4 - 3.9 g/dL [facility] SODIUM 141 136 - 145 mEq/L [facility] BILIRUBIN TOTAL 2.6(H) 0.3 - 1.2 mg/dL [facility] TOTAL PROTEIN 4.9(L) 6.3 - 8.2 g/dL [facility] BUN 16 7 - 17 mg/dL [facility] AST 52(H) 8 - 33 U/L [facility] CO2 36(H) 22 - 32 mmol/l [facility] ALBUMIN/GLOBULIN RATIO 0.8(L) 1.0 - 2.3 [facility] ALBUMIN 2.2(L) 3.5 - 5.0 g/dL [facility] POTASSIUM 3.6 3.5 - 5.0 mEq/L [facility] ANION GAP 7(L) 9 - 20 mEq/L [facility] CALCIUM 7.9(L) 8.4 - 10.5 mg/dL [facility] CREATININE 0.5(L) 0.7 - 1.2 mg/dL [facility] ALT 37(H) 4 - 36 IU/L [facility] GLUCOSE 131(H) 70 - 110 mg/dL [facility] CHLORIDE 102 95 - 110 mEq/L [facility] OSMOLALITY, CALCULATED 292 275 - 295 mOsm/Kg [facility] ALKALINE PHOSPHATASE 122(H) 25 - 100 U/L [facility] Blood specimen (specimen) 04/17/2008 2:07 AM CDT 04/17/2008 2:12 AM CDT Riky Mejía MD CHEMISTRY ORDERABLES Final Result Performing Organization Address [facility] Phone Number INTERFACE SYSTEM Refer to clinic/hospital department [facility] CLIA# [id number] [address] [place] [address] * (ABNORMAL) TRIGLYCERIDE (04/17/2008 2:07 AM CDT) TRIGLYCERIDE 326(H) 0 - 150 mg/dL [facility] Comment: On 11/10/2007, [facility] changed the triglyceride reference range to 0-150 mg/dl. This is the recommendation of the National Cholesterol Education Program (NCEP-ATPIII). Blood specimen (specimen) 04/17/2008 2:07 AM CDT 04/17/2008 2:12 AM CDT Riky Mejía MD CHEMISTRY ORDERABLES Final Result Performing Organization Address [place] [facility] Phone Number INTERFACE SYSTEM Refer to clinic/hospital department [facility] CLIA# [id number] [address] [place] [address] * (ABNORMAL) POC GLUCOSE (04/16/2008 6:56 PM CDT) GLUCOSE POC 151(H) 60 - 100 mg/dL [facility] Venous blood specimen (specimen) 04/16/2008 6:56 PM CDT 04/17/2008 12:06 PM CDT Riky Mejía MD POINT OF CARE TESTING Final Result Performing Organization Address [facility] Phone Number INTERFACE SYSTEM Refer to clinic/hospital department [facility] CLIA# [id number] [address] [place] [address] * POTASSIUM LEVEL (04/16/2008 4:43 PM CDT) POTASSIUM 3.7 3.5 - 5.0 mEq/L [facility] Comment: Specimen slightly hemolyzed. Slight icteric. Blood specimen (specimen) 04/16/2008 4:43 PM CDT 04/16/2008 4:43 PM CDT Riky Mejía MD CHEMISTRY ORDERABLES Final Result INTERFACE SYSTEM Refer to clinic/hospital department [facility] CLIA# [id number] [address] [place] [address] * (ABNORMAL) POC ISTAT EG 7+ (04/16/2008 12:11 PM CDT) POTASSIUM 3.5 3.5 - 4.9 mEq/L [facility] SPECIMEN TYPE Arterial [facility] Comment: Test Performed By [id number] Pulse OX: 97 Hemoglobin calculated from Hematocrit result PCO2 TEMP CORRECT 59(H) 35 - 45 mmHg [facility] HEMOGLOBIN POC 9.9 +/-3 g/dL 12.0 - 16.0 g/dL [facility] PH TEMP CORRECT 7.39 7.35 - 7.45 Unit [facility] HCO3 (CALC) POC 35.3(H) 22.0 - 26.0 mmol/l [facility] CALCIUM IONIZED 1.10(L) 1.12 - 1.32 mmol/l [facility] TCO2 (CALC) POC 37(H) 23 - 27 mmol/l [facility] FIO2 40 [facility] PO2 93 80 - 105 mmHg [facility] HEMATOCRIT ABG 29(L) 38 - 51 % [facility] PCO2 POC 59(H) 35 - 45 mmHg [facility] SODIUM 135(L) 138 - 146 mEq/L [facility] BASE EXCESS 10(H) -2 - 3 mmol/l [facility] PH 7.39 7.35 - 7.45 Unit [facility] O2 SATURATION 97 95 - 98 % [facility] PO2 TEMP CORRECT 93 80 - 105 mmHg [facility] Arterial blood specimen (specimen) 04/16/2008 12:11 PM CDT 04/16/2008 12:15 PM CDT Riky Mejía MD POINT OF CARE TESTING COM F inal Result Performing Organization Address City/[facility] de Phone Number INTERFACE SYSTEM Refer to clinic/hospital department [facility] CLIA# [id number] [address] [place] [address] * (ABNORMAL) POC GLUCOSE (04/16/2008 7:40 AM CDT) GLUCOSE POC 166(H) 60 - 100 mg/dL [facility] Venous blood specimen (specimen) 04/16/2008 7:40 AM CDT 04/17/2008 12:06 PM CDT Riky Mejía MD POINT OF CARE TESTING Final Result Performing Organization Address [facility] Phone Number INTERFACE SYSTEM Refer to clinic/hospital department [facility] CLIA# [id number] [address] [place] [address] * (ABNORMAL) POC ISTAT EG 7+ (04/16/2008 5:16 AM CDT) CALCIUM IONIZED 1.12 1.12 - 1.32 mmol/l [facility] PCO2 POC 46(H) 35 - 45 mmHg [facility] BASE EXCESS 10(H) -2 - 3 mmol/l [facility] SODIUM 133(L) 138 - 146 mEq/L [facility] PH 7.47(H) 7.35 - 7.45 Unit [facility] PO2 TEMP CORRECT 83 80 - 105 mmHg [facility] O2 SATURATION 97 95 - 98 % [facility] SPECIMEN TYPE Arterial [facility] Comment: Test Performed By [id number] Tidal volume: 500 PEEP: 06 Rate: 12 Pulse OX: 97 Hemoglobin calculated from Hematocrit result PCO2 TEMP CORRECT 46(H) 35 - 45 mmHg [facility] POTASSIUM 3.0(L) 3.5 - 4.9 mEq/L [facility] HEMOGLOBIN POC 9.2 +/-3 g/dL 12.0 - 16.0 g/dL [facility] PH TEMP CORRECT 7.47(H) 7.35 - 7.45 Unit [facility] TCO2 (CALC) POC 35(H) 23 - 27 mmol/l [facility] HCO3 (CALC) POC 33.4(H) 22.0 - 26.0 mmol/l [facility] FIO2 30 [facility] HEMATOCRIT ABG 27(L) 38 - 51 % [facility] PO2 83 80 - 105 mmHg [facility] Arterial blood specimen (specimen) 04/16/2008 5:16 AM CDT 04/16/2008 5:51 AM CDT us Riky Mejía MD POINT OF CARE TESTING COM F inal Result INTERFACE SYSTEM Refer to clinic/hospital department [facility] CLIA# [id number] [address] [place] [address] * (ABNORMAL) POC GLUCOSE (04/16/2008 5:12 AM CDT) GLUCOSE POC 151(H) 60 - 100 mg/dL [facility] Venous blood specimen (specimen) 04/16/2008 5:12 AM CDT 04/16/2008 6:51 AM CDT us Riky Mejía MD POINT OF CARE TESTING Final Result INTERFACE SYSTEM Refer to clinic/hospital department [facility] CLIA# [id number] [address] [place] [address] * XR CHEST PA OR AP (04/16/2008 4:01 AM CDT) Anatomical Region Laterality Modality Chest Other 04/16/2008 4:01 AM CDT Narrative 04/16/2008 11:28 AM CDT Exam: Chest - Portable Date/Time of Exam: Apr 16, 2008 4:01:11 AM History: Please see order comments. Findings: Compared with 04/15/2008, endotracheal tube, left-sided central line with tip in SVC and nasogastric tube are unchanged. Low lung volumes with elevated right hemidiaphragm again noted. Areas of basilar atelectasis appears slightly improved compared to the prior study. No pleural effusion. Cardiomediastinal contours are stable. - Dictated By: Frederic Vieyra M.D. Electronically Signed By: Frederic Vieyra M.D. Date Signed: 04/16/08 Procedure Note [...] By: Frederic Vieyra M.D. Date Signed: 04/16/08 us Riky Mejía MD DIAGNOSTIC IMAGING ORDERABL ES Final Result * (ABNORMAL) CBC WITH DIFFERENTIAL (04/16/2008 3:20 AM CDT) LYMPHOCYTES 5.4(L) 24.0 - 44.0 % [facility] MCHC 33.3 30.0 - 35.0 g/dL [facility] LYMPHOCYTE ABSOLUTE 1.1(L) 1.2 - 4.0 K/ul [facility] MCV 88.4 84.0 - 103.0 Fl [facility] MPV 10.1 8.9 - 12.8 Fl [facility] BASOPHILS ABSOLUTE 0.1 0.0 - 0.2 K/ul [facility] BASOPHILS 0.3 0.0 - 1.0 % [facility] HEMOGLOBIN 9.4(L) 12.0 - 16.0 g/dL [facility] RDW 16.2(H) 11.0 - 14.5 % [facility] MONOCYTE ABSOLUTE 0.7(H) 0.1 - 0.6 K/ul [facility] MONOCYTES 3.3 2.0 - 10.0 % [facility] WBC 19.6(H) 4.5 - 11.0 K/ul [facility] MCH 29.5 27.0 - 34.0 pg [facility] NEUTROPHIL ABSOLUTE 17.6(H) 2.0 - 8.0 K/ul [facility] NEUTROPHILS 89.9(H) 42.2 - 75.2 % [facility] HEMATOCRIT 28.2(L) 36.0 - 46.0 % [facility] EOSINOPHILS 1.1 0.0 - 7.0 % [facility] PLATELETS 292 140 - 440 K/ul [facility] PERIPHERAL BLOOD SMEAR REVIEW Automated Diff [facility] EOSINOPHIL ABSOLUTE 0.2 0.0 - 0.7 K/ul [facility] RBC 3.19(L) 4.20 - 5.40 Mil/ul [facility] Blood specimen (specimen) 04/16/2008 3:20 AM CDT 04/16/2008 3:26 AM CDT us Riky Mejía MD HEMATOLOGY ORDERABLES Final Result INTERFACE SYSTEM Refer to clinic/hospital department [facility] CLIA# [id number] [address] [place] [address] * (ABNORMAL) COMPREHENSIVE METABOLIC PANEL (04/16/2008 3:20 AM CDT) AST 58(H) 8 - 33 U/L [facility] CO2 32 22 - 32 mmol/l [facility] ALBUMIN/GLOBULIN RATIO 0.9(L) 1.0 - 2.3 [facility] ALBUMIN 2.2(L) 3.5 - 5.0 g/dL [facility] POTASSIUM 2.9(AA) 3.5 - 5.0 mEq/L [facility] Comment: Potentially critical/toxic K called by GS to JOCELYNE DILLARD, with verbal read back, at 04/16/08 04:21. ANION GAP 9 9 - 20 mEq/L [facility] CALCIUM 8.2(L) 8.4 - 10.5 mg/dL [facility] CREATININE 0.6(L) 0.7 - 1.2 mg/dL [facility] ALT 37(H) 4 - 36 IU/L [facility] GLUCOSE 148(H) 70 - 110 mg/dL [facility] CHLORIDE 98 95 - 110 mEq/L [facility] OSMOLALITY, CALCULATED 283 275 - 295 mOsm/Kg [facility] ALKALINE PHOSPHATASE 105(H) 25 - 100 U/L [facility] GLOBULIN (CALC) 2.5 2.4 - 3.9 g/dL [facility] SODIUM 136 136 - 145 mEq/L [facility] BILIRUBIN TOTAL 4.4(H) 0.3 - 1.2 mg/dL [facility] TOTAL PROTEIN 4.7(L) 6.3 - 8.2 g/dL [facility] BUN 17 7 - 17 mg/dL [facility] Blood specimen (specimen) 04/16/2008 3:20 AM CDT 04/16/2008 3:26 AM CDT us Riky Mejía MD CHEMISTRY ORDERABLES Final Result Performing Organization Address [facility] Phone Number INTERFACE SYSTEM Refer to clinic/hospital department [facility] CLIA# [id number] [address] [place] [address] * (ABNORMAL) POC GLUCOSE (04/15/2008 6:36 PM CDT) GLUCOSE POC 110(H) 60 - 100 mg/dL [facility] Venous blood specimen (specimen) 04/15/2008 6:36 PM CDT 04/16/2008 6:51 AM CDT us Riky Mejía MD POINT OF CARE TESTING Final Result Performing Organization Address [place] [facility] Phone Number INTERFACE SYSTEM Refer to clinic/hospital department [facility] CLIA# [id number] [address] [place] [address] * (ABNORMAL) HEMOGLOBIN AND HEMATOCRIT (04/15/2008 4:00 PM CDT) HEMOGLOBIN 7.8(L) 12.0 - 16.0 g/dL [facility] HEMATOCRIT 24.1(L) 36.0 - 46.0 % [facility] Blood specimen (specimen) 04/15/2008 4:00 PM CDT 04/15/2008 4:00 PM CDT us Riky Mejía MD HEMATOLOGY ORDERABLES Final Result Performing Organization Address [place] [facility] Phone Number INTERFACE SYSTEM Refer to clinic/hospital department [facility] CLIA# [id number] [address] [place] [address] * (ABNORMAL) VANCOMYCIN LEVEL TROUGH (04/15/2008 9:53 AM CDT) VANCOMYCIN, TROUGH 18.3(H) 5.0 - 15.0 mcg/mL [facility] Blood specimen (specimen) 04/15/2008 9:53 AM CDT 04/15/2008 9:53 AM CDT Riky Mejía MD CHEMISTRY ORDERABLES Final Result Performing Organization Address [facility] Phone Number INTERFACE SYSTEM Refer to clinic/hospital department [facility] CLIA# [id number] [address] [place] [address] * (ABNORMAL) TRIGLYCERIDE (04/15/2008 9:53 AM CDT) TRIGLYCERIDE 435(H) 0 - 150 mg/dL [facility] Comment: On 11/10/2007, [facility] changed the triglyceride reference range to 0-150 mg/dl. This is the recommendation of the National Cholesterol Education Program (NCEP-ATPIII). Blood specimen (specimen) 04/15/2008 9:53 AM CDT 04/15/2008 9:53 AM CDT Riky Mejía MD CHEMISTRY ORDERABLES Final Result Performing Organization Address [place] [facility] Phone Number INTERFACE SYSTEM Refer to clinic/hospital department [facility] CLIA# [id number] [address] [place] [address] * PROTIME-INR (04/15/2008 9:53 AM CDT) PROTIME 15.2 12.8 - 15.8 Secs [facility] Comment:As of 2007 not e change in normal range. INR 1.1 [facility] Comment: Expected Values for INR: DVT/PE Goal INR 2.5; range 2.0 - 3.0 Valve Replacement Tissue Goal INR 2.5; range 2.0 - 3.0 Mechanical Goal INR 3.0; range 2.5 - 3.5 POST-GA Goal INR 2.5; range 2.0 - 3.0 or Goal 3.0; range 2.5 - 3.5 Atrial Fibrillation Goal INR 2.5; range 2.0 - 3.0 Ischemic Stroke Goal INR 2.5; range 2.0 - 3.0 For additional information see Guidelines for Anticoagulation available from the pharmacy [facility] [phone] Blood specimen (specimen) 04/15/2008 9:53 AM CDT 04/15/2008 9:53 AM CDT Riky Mejía MD HEMATOLOGY ORDERABLES Final Result Performing Organization Address [facility] Phone Number INTERFACE SYSTEM Refer to clinic/hospital department [facility] CLIA# [id number] [address] [place] [address] * (ABNORMAL) TRANSFERRIN (04/15/2008 9:53 AM CDT) TRANSFERRIN 59.0(L) 204.0 - 376.0 mg/dL [facility] Comment: Specimen slightly hemolyzed Blood specimen (specimen) 04/15/2008 9:53 AM CDT 04/15/2008 9:53 AM CDT Riky Mejía MD CHEMISTRY ORDERABLES Final Result Performing Organization Address [place] [facility] Phone Number INTERFACE SYSTEM Refer to clinic/hospital [facility] CLIA# [id number] [address] [place] [address] * (ABNORMAL) PREALBUMIN (04/15/2008 9:53 AM CDT) PREALBUMIN <5.0(L) 14.0 - 32.0 mg/dL [facility] Comment: Test Repeated; Results confirmed Blood specimen (specimen) 04/15/2008 9:53 AM CDT 04/15/2008 9:53 AM CDT Riky Mejía MD CHEMISTRY ORDERABLES Final Result Performing Organization Address [facility] Phone Number INTERFACE SYSTEM Refer to clinic/hospital [facility] CLIA# [id number] [address] [place] [address] * PHOSPHORUS (04/15/2008 9:53 AM CDT) PHOSPHORUS 3.9 2.5 - 4.6 mg/dL [facility] Blood specimen (specimen) 04/15/2008 9:53 AM CDT 04/15/2008 9:53 AM CDT us Riky Mejía MD CHEMISTRY ORDERABLES Edited Performing Organization Address [facility] Phone Number INTERFACE SYSTEM Refer to clinic/hospital department [facility] CLIA# [id number] [address] [place] [address] * (ABNORMAL) MAGNESIUM LEVEL (04/15/2008 9:53 AM CDT) MAGNESIUM 1.3(L) 1.7 - 2.4 mg/dL [facility] Blood specimen (specimen) 04/15/2008 9:53 AM CDT 04/15/2008 9:53 AM CDT us Riky Mejía MD CHEMISTRY ORDERABLES Edited Performing Organization Address [facility] de Phone Number INTERFACE SYSTEM Refer to clinic/hospital department [facility] CLIA# [id number] [address] [place] [address] * (ABNORMAL) POC ISTAT EG 7+ (04/15/2008 4:13 AM CDT) PH 7.49(H) 7.35 - 7.45 Unit [facility] PO2 TEMP CORRECT 68(L) 80 - 105 mmHg [facility] O2 SATURATION 94(L) 95 - 98 % [facility] SPECIMEN TYPE Arterial [facility] Comment: Test Performed By [id number] Tidal volume: 500 PEEP: 06 Rate: 12 Pulse OX: 98 Hemoglobin calculated from Hematocrit result PCO2 TEMP CORRECT 48(H) 35 - 45 mmHg [facility] POTASSIUM 3.4(L) 3.5 - 4.9 mEq/L [facility] HEMOGLOBIN POC 9.2 +/-3 g/dL 12.0 - 16.0 g/dL [facility] PH TEMP CORRECT 7.49(H) 7.35 - 7.45 Unit [facility] TCO2 (CALC) POC 38(H) 23 - 27 mmol/l [facility] HCO3 (CALC) POC 36.7(H) 22.0 - 26.0 mmol/l [facility] FIO2 30 [facility] HEMATOCRIT ABG 27(L) 38 - 51 % [facility] PO2 68(L) 80 - 105 mmHg [facility] CALCIUM IONIZED 1.06(L) 1.12 - 1.32 mmol/l [facility] PCO2 POC 48(H) 35 - 45 mmHg [facility] BASE EXCESS 13(H) -2 - 3 mmol/l [facility] SODIUM 133(L) 138 - 146 mEq/L [facility] Arterial blood specimen (specimen) 04/15/2008 4:13 AM CDT 04/15/2008 4:27 AM CDT Riky Mejía MD POINT OF CARE TESTING COM F inal Result INTERFACE SYSTEM Refer to clinic/hospital department [facility]# [id number] [address] [place] [address] * XR CHEST PA OR AP (04/15/2008 [...] By: April Chaparro M.D. Date Signed: 04/15/08 [facility] Procedure Note April Chaparro MD - 04/15/2008 Exam: Chest - Portable Date/Time of Exam: Apr 15, 2008 4:08:09 AM History: Postoperative. Findings: Comparison study 04/14/08. Life support lines stable in position.Decreased lung volumes with bibasilar plate atelectasis. Cardiac silhouette stable and within normallimits. Impression: No significant change. - Dictated By: April Chaparro M.D. Electronically Signed By: April Chaparro M.D. Date Signed: 04/15/08 [facility] Heriberto Carrera MD DIAGNOSTIC IMAGING ORDERABLES Fi nal Result * (ABNORMAL) COMPREHENSIVE METABOLIC PANEL (04/15/2008 3:17 AM CDT) CALCIUM 7.9(L) 8.4 - 10.5 mg/dL [facility] CREATININE 0.6(L) 0.7 - 1.2 mg/dL [facility] ALT 40(H) 4 - 36 IU/L [facility] GLUCOSE 106 70 - 110 mg/dL [facility] CHLORIDE 95 95 - 110 mEq/L [facility] OSMOLALITY, CALCULATED 285 275 - 295 mOsm/Kg [facility] ALKALINE PHOSPHATASE 102(H) 25 - 100 U/L [facility] GLOBULIN (CALC) 2.5 2.4 - 3.9 g/dL [facility] SODIUM 137 136 - 145 mEq/L [facility] BILIRUBIN TOTAL 4.3(H) 0.3 - 1.2 mg/dL [facility] Comment: slightly icteric TOTAL PROTEIN 4.5(L) 6.3 - 8.2 g/dL [facility] BUN 20(H) 7 - 17 mg/dL [facility] AST 73(H) 8 - 33 U/L [facility] CO2 36(H) 22 - 32 mmol/l [facility] ALBUMIN/GLOBULIN RATIO 0.8(L) 1.0 - 2.3 [facility] ALBUMIN 2.0(L) 3.5 - 5.0 g/dL [facility] POTASSIUM 3.7 3.5 - 5.0 mEq/L [facility] ANION GAP 10 9 - 20 mEq/L [facility] Blood specimen (specimen) 04/15/2008 3:17 AM CDT 04/15/2008 3:36 AM CDT us ePtr Carrillo MD CHEMISTRY ORDERABLES Final Re sult INTERFACE SYSTEM Refer to clinic/hospital department [facility] CLIA# [id number] [address] [place] [address] * (ABNORMAL) CBC WITH DIFFERENTIAL (04/15/2008 3:17 AM CDT) NEUTROPHIL ABSOLUTE 15.2(H) 2.0 - 8.0 K/ul [facility] HEMATOCRIT 26.7(L) 36.0 - 46.0 % [facility] PLATELETS 428 140 - 440 K/ul [facility] EOSINOPHIL ABSOLUTE 0.2 0.0 - 0.7 K/ul [facility] EOSINOPHILS 0.8 0.0 - 7.0 % [facility] PERIPHERAL BLOOD SMEAR REVIEW Automated Diff [facility] RBC 3.02(L) 4.20 - 5.40 Mil/ul [facility] MCHC 32.2 30.0 - 35.0 g/dL [facility] LYMPHOCYTE ABSOLUTE 1.3 1.2 - 4.0 K/ul [facility] LYMPHOCYTES 7.4(L) 24.0 - 44.0 % [facility] MCV 88.4 84.0 - 103.0 Fl [facility] BASOPHILS 0.5 0.0 - 1.0 % [facility] MPV 10.1 8.9 - 12.8 Fl [facility] BASOPHILS ABSOLUTE 0.1 0.0 - 0.2 K/ul [facility] HEMOGLOBIN 8.6(L) 12.0 - 16.0 g/dL [facility] MONOCYTES 5.6 2.0 - 10.0 % [facility] RDW 16.7(H) 11.0 - 14.5 % [facility] MONOCYTE ABSOLUTE 1.0(H) 0.1 - 0.6 K/ul [facility] WBC 17.7(H) 4.5 - 11.0 K/ul [facility] NEUTROPHILS 85.7(H) 42.2 - 75.2 % [facility] MCH 28.5 27.0 - 34.0 pg [facility] Blood specimen (specimen) 04/15/2008 3:17 AM CDT 04/15/2008 3:40 AM CDT us Petr Carrillo MD HEMATOLOGY ORDERABLES Final R esult INTERFACE SYSTEM Refer to clinic/hospital department [facility]# [id number] [address] [place] [address] * XR CHEST PA OR AP (04/14/2008 [...] Ari Ly Jr., M.D. Date Signed: 04/14/08 [facility] Procedure Note Ari Ly Jr. - 04/14/2008 [...] Ari Ly Jr., M.D. Date Signed: 04/14/08 [facility] us Riky Mejía MD DIAGNOSTIC IMAGING ORDERABL ES Final Result * (ABNORMAL) POC ISTAT EG 7+ (04/14/2008 3:23 AM CDT) SODIUM 134(L) 138 - 146 mEq/L [facility] PH 7.60(AA) 7.35 - 7.45 Unit [facility] PO2 TEMP CORRECT 92 80 - 105 mmHg [facility] O2 SATURATION 98 95 - 98 % [facility] SPECIMEN TYPE Arterial [facility] Comment: Test Performed By [id number] Critical result performed at the point of care. Pulse OX: 98 Hemoglobin calculated from Hematocrit result PCO2 TEMP CORRECT 41 35 - 45 mmHg [facility] POTASSIUM 3.9 3.5 - 4.9 mEq/L [facility] HEMOGLOBIN POC 10.9 +/-3 g/dL 12.0 - 16.0 g/dL [facility] PH TEMP CORRECT 7.60(AA) 7.35 - 7.45 Unit [facility] TCO2 (CALC) POC 41(H) 23 - 27 mmol/l [facility] HCO3 (CALC) POC 39.9(H) 22.0 - 26.0 mmol/l [facility] FIO2 45 [facility] HEMATOCRIT ABG 32(L) 38 - 51 % [facility] PO2 92 80 - 105 mmHg [facility] CALCIUM IONIZED 1.03(L) 1.12 - 1.32 mmol/l [facility] PCO2 POC 41 35 - 45 mmHg [facility] BASE EXCESS 18(H) -2 - 3 mmol/l [facility] Arterial blood specimen (specimen) 04/14/2008 3:23 AM CDT 04/14/2008 5:44 AM CDT us Riky Mejía MD POINT OF CARE TESTING COM F inal Result INTERFACE SYSTEM Refer to clinic/hospital department [facility] CLIA# [id number] [address] [place] [address] * (ABNORMAL) DIFFERENTIAL, MANUAL (04/14/2008 1:37 AM CDT) NEUTROPHILS, SEG 57 36 - 66 % [facility] METAMYELOCYTE 1 0 - 1 % [facility] POIKILOCYTES 1+(A) None Seen [facility] MONOCYTE 5 4 - 10 % [facility] RBC MORPHOLOGY Abnormal(A ) Normal [facility] BANDS 27(H) 0 - 6 % [facility] POLYCHROMASIA Present(A) None Seen [facility] MYELOCYTES 1 <=1 % [facility] EOSINOPHILS 1 0 - 3 % [facility] ANISOCYTOSIS 1+(A) None Seen [facility] LYMPHOCYTES 8(L) 24 - 44 % [facility] PLATELET EST. Normal Normal [facility] Comment: OCC PLATELET CLUMPS NOTED ON REVIEW OF SMEAR. Blood specimen (specimen) 04/14/2008 1:37 AM CDT 04/14/2008 1:40 AM CDT Narrative INTERFACE SYSTEM - 04/14/2008 2:01 AM CDT Differential ordered by policy. Riky Mejía MD HEMATOLOGY ORDERABLES COM F inal Result INTERFACE SYSTEM Refer to clinic/hospital department [facility] CLIA# [id number] [address] [place] [address] * (ABNORMAL) BASIC METABOLIC PANEL (04/14/2008 1:37 AM CDT) CALCIUM 8.1(L) 8.4 - 10.5 mg/dL [facility] GLUCOSE 108 70 - 110 mg/dL [facility] CHLORIDE 95 95 - 110 mEq/L [facility] ANION GAP 8(L) 9 - 20 mEq/L [facility] SODIUM 137 136 - 145 mEq/L [facility] BUN 26(H) 7 - 17 mg/dL [facility] CO2 38(H) 22 - 32 mmol/l [facility] POTASSIUM 4.1 3.5 - 5.0 mEq/L [facility] OSMOLALITY, CALCULATED 288 275 - 295 mOsm/Kg [facility] CREATININE 0.8 0.7 - 1.2 mg/dL [facility] Blood specimen (specimen) 04/14/2008 1:37 AM CDT 04/14/2008 1:40 AM CDT us Riky Mejía MD CHEMISTRY ORDERABLES Final Result Performing Organization Address [facility] Phone Number INTERFACE SYSTEM Refer to clinic/hospital department [facility] CLIA# [id number] [address] [place] [address] * (ABNORMAL) CBC WITH DIFFERENTIAL (04/14/2008 1:37 AM CDT) HEMATOCRIT 33.4(L) 36.0 - 46.0 % [facility] PLATELETS 429 140 - 440 K/ul [facility] RBC 3.77(L) 4.20 - 5.40 Mil/ul [facility] MCHC 33.2 30.0 - 35.0 g/dL [facility] MPV 10.1 8.9 - 12.8 Fl [facility] MCV 88.6 84.0 - 103.0 Fl [facility] HEMOGLOBIN 11.1(L) 12.0 - 16.0 g/dL [facility] RDW 16.4(H) 11.0 - 14.5 % [facility] WBC 16.6(H) 4.5 - 11.0 K/ul [facility] MCH 29.4 27.0 - 34.0 pg [facility] Blood specimen (specimen) 04/14/2008 1:37 AM CDT 04/14/2008 1:40 AM CDT us Riky Mejía MD HEMATOLOGY ORDERABLES Edite d Performing Organization Address [facility] de Phone Number INTERFACE SYSTEM Refer to clinic/hospital department [facility] CLIA# [id number] [address] [place] [address] * LACTIC ACID (04/13/2008 9:12 PM CDT) LACTIC ACID 1.4 0.5 - 2.2 mEq/L [facility] Blood specimen (specimen) 04/13/2008 9:12 PM CDT 04/13/2008 9:18 PM CDT us Riky Mejía MD CHEMISTRY ORDERABLES Final Result INTERFACE SYSTEM Refer to clinic/hospital department [facility] CLIA# [id number] [facility] [place] [address] * (ABNORMAL) POC ISTAT EG 7+ (04/13/2008 8:41 PM CDT) Pathologist [facility] POTASSIUM 3.8 3.5 - 4.9 mEq/L [facility] PH TEMP CORRECT 7.51(H) 7.35 - 7.45 Unit [facility] HCO3 (CALC) POC 43.9(H) 22.0 - 26.0 mmol/l [facility] TCO2 (CALC) POC 46(H) 23 - 27 mmol/l [facility] FIO2 55 [facility] PO2 129(H) 80 - 105 mmHg [facility] CALCIUM IONIZED 1.05(L) 1.12 - 1.32 mmol/l [facility] HEMATOCRIT ABG 36(L) 38 - 51 % [facility] PCO2 POC 56(H) 35 - 45 mmHg [facility] SODIUM 135(L) 138 - 146 mEq/L [facility] BASE EXCESS 21(H) -2 - 3 mmol/l [facility] PH 7.51(H) 7.35 - 7.45 Unit [facility] O2 SATURATION 99(H) 95 - 98 % [facility] PO2 TEMP CORRECT 129(H) 80 - 105 mmHg [facility] SPECIMEN TYPE Arterial [facility] Comment: Test Performed By [id number] PEEP: 10 Rate: 12 Pulse OX: 100 Hemoglobin calculated from Hematocrit result PCO2 TEMP CORRECT 56(H) 35 - 45 mmHg [facility] HEMOGLOBIN POC 12.2 +/-3 g/dL 12.0 - 16.0 g/dL [facility] Arterial blood specimen (specimen) 04/13/2008 8:41 PM CDT 04/13/2008 8:44 PM CDT Riky Mejía MD POINT OF CARE TESTING COM F inal Result Performing Organization Address [facility] de Phone Number INTERFACE SYSTEM Refer to clinic/hospital department [facility] CLIA# [id number] [address] [place] [address] * (ABNORMAL) POC GLUCOSE (04/13/2008 8:33 PM CDT) GLUCOSE POC 115(H) 60 - 100 mg/dL [facility] Venous blood specimen (specimen) 04/13/2008 8:33 PM CDT 04/14/2008 5:56 AM CDT Riky Mejía MD POINT OF CARE TESTING Final Result Performing Organization Address [facility] de Phone Number INTERFACE SYSTEM Refer to clinic/hospital department [facility] CLIA# [id number] [address] [place] [address] * (ABNORMAL) BASIC METABOLIC PANEL (04/13/2008 7:58 PM CDT) GLUCOSE 118(H) 70 - 110 mg/dL [facility] CHLORIDE 94(L) 95 - 110 mEq/L [facility] ANION GAP <9 9 - 20 mEq/L [facility] SODIUM 139 136 - 145 mEq/L [facility] BUN 17 7 - 17 mg/dL [facility] CO2 >40(H) 22 - 32 mmol/l [facility] POTASSIUM 3.9 3.5 - 5.0 mEq/L [facility] OSMOLALITY, CALCULATED 288 275 - 295 mOsm/Kg [facility] CREATININE 0.5(L) 0.7 - 1.2 mg/dL [facility] CALCIUM 8.4 8.4 - 10.5 mg/dL [facility] Blood specimen (specimen) 04/13/2008 7:58 PM CDT 04/13/2008 8:01 PM CDT Riky Mejía MD CHEMISTRY ORDERABLES Final Result INTERFACE SYSTEM Refer to clinic/hospital department [facility] CLIA# [id number] [address] [place] [address] * (ABNORMAL) CBC WITH DIFFERENTIAL (04/13/2008 7:58 PM CDT) MCV 91.0 84.0 - 103.0 Fl [facility] MPV 10.3 8.9 - 12.8 Fl [facility] BASOPHILS ABSOLUTE 0.1 0.0 - 0.2 K/ul [facility] BASOPHILS 0.4 0.0 - 1.0 % [facility] HEMOGLOBIN 11.6(L) 12.0 - 16.0 g/dL [facility] RDW 16.6(H) 11.0 - 14.5 % [facility] MONOCYTE ABSOLUTE 0.7(H) 0.1 - 0.6 K/ul [facility] MONOCYTES 4.2 2.0 - 10.0 % [facility] WBC 16.1(H) 4.5 - 11.0 K/ul [facility] MCH 29.7 27.0 - 34.0 pg [facility] [facility] NEUTROPHIL ABSOLUTE 14.1(H) 2.0 - 8.0 K/ul [facility] NEUTROPHILS 87.4(H) 42.2 - 75.2 % [facility] HEMATOCRIT 35.6(L) 36.0 - 46.0 % [facility] EOSINOPHILS 0.9 0.0 - 7.0 % [facility] PLATELETS 430 140 - 440 K/ul [facility] EOSINOPHIL ABSOLUTE 0.1 0.0 - 0.7 K/ul [facility] RBC 3.91(L) 4.20 - 5.40 Mil/ul [facility] LYMPHOCYTES 7.1(L) 24.0 - 44.0 % [facility] MCHC 32.6 30.0 - 35.0 g/dL [facility] LYMPHOCYTE ABSOLUTE 1.1(L) 1.2 - 4.0 K/ul [facility] Blood specimen (specimen) 04/13/2008 7:58 PM CDT 04/13/2008 8:01 PM CDT us Riky Mejía MD HEMATOLOGY ORDERABLES Final Result Performing Organization Address City/State/[facility] Phone Number INTERFACE SYSTEM Refer to clinic/hospital department [facility]# [id number] [address] [place] [id number] * XR CHEST PA OR AP (04/13/2008 [...] radiopaque tubes and lines that overlie the [id number]. There is vascular congestion, and there is likely a right lower lobe infiltrate that obscures the right diaphragm. - Dictated By: Riky Jarvis M.D. Electronically Signed By: Riky Jarvis M.D. Date Signed: 04/13/08 Procedure Note Riky Jarvis - 04/13/2008 Exam: Chest - Portable Date/Time of Exam: Apr 13, 2008 7:26:05 PM History: Post-operative. Findings: AP compared to April 06, 2008 shows an endotracheal tubewith the distal tip at the level of the clavicles, a nasogastric tube that extends into the stomach, andmultiple other radiopaque tubes and lines that overlie the [id number]. There is vascular congestion,and there is likely a right lower lobe infiltrate that obscures the right diaphragm. - Dictated By: Riky Jarvis M.D. Electronically Signed By: Riky Javris M.D. Date Signed: 04/13/08 Riky Mejía MD DIAGNOSTIC IMAGING ORDERABL ES Final Result * (ABNORMAL) POC ISTAT EG 7+ (04/13/2008 6:02 PM CDT) TEMPERATURE 37.9 DegC [facility] PO2 138(H) 80 - 105 mmHg [facility] CALCIUM IONIZED 1.06(L) 1.12 - 1.32 mmol/l [facility] HEMATOCRIT ABG 29(L) 38 - 51 % [facility] SPECIMEN TYPE Arterial [facility] Comment: Test Performed By [id number] Critical result performed at the point of care. Sample not collected by [facility] Hemoglobin calculated from Hematocrit result PCO2 POC 39 35 - 45 mmHg [facility] SODIUM 134(L) 138 - 146 mEq/L [facility] BASE EXCESS 27(H) -2 - 3 mmol/l [facility] PH 7.69(AA) 7.35 - 7.45 Unit [facility] O2 SATURATION 100(H) 95 - 98 % [facility] PO2 TEMP CORRECT 144(H) 80 - 105 mmHg [facility] FIO2 100 [facility] HEMOGLOBIN POC 9.9 +/-3 g/dL 12.0 - 16.0 g/dL [facility] PCO2 TEMP CORRECT 41 35 - 45 mmHg [facility] POTASSIUM 3.3(L) 3.5 - 4.9 mEq/L [facility] PH TEMP CORRECT 7.67(AA) 7.35 - 7.45 Unit [facility] HCO3 (CALC) POC 47.0(H) 22.0 - 26.0 mmol/l [facility] TCO2 (CALC) POC 48(H) 23 - 27 mmol/l [facility] Arterial blood specimen (specimen) 04/13/2008 6:02 PM CDT 04/13/2008 6:19 PM CDT Riky Mejía MD POINT OF CARE TESTING COM F inal Result Performing Organization Address [facility] de Phone Number INTERFACE SYSTEM Refer to clinic/hospital department [facility] CLIA# [id number] [address] [place] [address] * LACTIC ACID (04/13/2008 5:36 PM CDT) [facility] LACTIC ACID 1.5 0.5 - 2.2 mEq/L [facility] Blood specimen (specimen) 04/13/2008 5:36 PM CDT 04/13/2008 5:36 PM CDT Riky Mejía MD CHEMISTRY ORDERABLES Final Result Performing Organization Address [place] [facility] Phone Number INTERFACE SYSTEM Refer to clinic/hospital department [facility] CLIA# [id number] [facility] [place] [address] * TYPE AND CROSSMATCH (04/13/2008 5:34 PM CDT) [facility] BLOOD BANK PRODUCT INTERFACE SYSTEM Blood specimen (specimen) 04/13/2008 5:34 PM CDT 04/13/2008 5:34 PM CDT Riky Mejía MD BLOOD BANK ORDERABLES Final Result Performing Organization Address [facility] de Phone Number INTERFACE SYSTEM Refer to clinic/hospital department * ANTIBODY SCREEN (04/13/2008 5:34 PM CDT) Pathologist [facility] ANTIBODY SCREEN Negative [facility] Blood specimen (specimen) 04/13/2008 5:34 PM CDT 04/13/2008 5:34 PM CDT Riky Mejía MD BLOOD BANK ORDERABLES Edite d Performing Organization Address [facility] de Phone Number INTERFACE SYSTEM Refer to clinic/hospital department [facility] CLIA# [id number] [address] [place] [address] * ABORH TYPING (04/13/2008 5:34 PM CDT) Pathologist [facility] ABO/RH TYPE O Positive [facility] Blood specimen (specimen) 04/13/2008 5:34 PM CDT 04/13/2008 5:34 PM CDT us Riky Mejía MD BLOOD BANK ORDERABLES Final Result Performing Organization Address [place] [facility] Phone Number INTERFACE SYSTEM Refer to clinic/hospital department [facility] CLIA# [id number] [address] [place] [address] * (ABNORMAL) BASIC METABOLIC PANEL (04/13/2008 5:29 PM CDT) CREATININE 0.6(L) 0.7 - 1.2 mg/dL [facility] CALCIUM 8.4 8.4 - 10.5 mg/dL [facility] GLUCOSE 118(H) 70 - 110 mg/dL [facility] CHLORIDE 91(L) 95 - 110 mEq/L [facility] SODIUM 141 136 - 145 mEq/L [facility] ANION GAP <14 9 - 20 mEq/L [facility] BUN 16 7 - 17 mg/dL [facility] CO2 >40(H) 22 - 32 mmol/l [facility] OSMOLALITY, CALCULATED 291 275 - 295 mOsm/Kg [facility] POTASSIUM 3.7 3.5 - 5.0 mEq/L [facility] Blood specimen (specimen) 04/13/2008 5:29 PM CDT 04/13/2008 5:30 PM CDT Narrative INTERFACE SYSTEM - 04/13/2008 6:20 PM CDT OR 9 us Riky Mejía MD CHEMISTRY ORDERABLES Final Result INTERFACE SYSTEM Refer to clinic/hospital department [facility] CLIA# [id number] [address] [place] [address] * PT AND APTT (04/13/2008 5:29 PM CDT) INR 1.1 [facility] Comment: Expected Values for INR: DVT/PE Goal INR 2.5; range 2.0 - 3.0 Valve Replacement Tissue Goal INR 2.5; range 2.0 - 3.0 Mechanical Goal INR 3.0; range 2.5 - 3.5 POST-GA Goal INR 2.5; range 2.0 - 3.0 or Goal 3.0; range 2.5 - 3.5 Atrial Fibrillation Goal INR 2.5; range 2.0 - 3.0 Ischemic Stroke Goal INR 2.5; range 2.0 - 3.0 For additional information see Guidelines for Anticoagulation available from the pharmacy Jolene Ramirez Pharm D. [phone] PTT 33.1 22.5 - 36.5 Secs [facility] Comment: Therapeutic Range: Hi-level PE/DVT heparin protocol 80.1 -95.0 sec Lo-level PE/DVT heparin protocol 67.1 - 80.0 sec Cardiac Heparin Protocol 67.1 - 85.0 sec Neuro Heparin Protocol 67.1 - 80.0 sec As of 09/25/2007 note change in APTT Normal Range. PROTIME 15.3 12.8 - 15.8 Secs [facility] Comment:As of 2007 not e change in normal range. Blood specimen (specimen) 04/13/2008 5:29 PM CDT 04/13/2008 5:30 PM CDT Narrative INTERFACE SYSTEM - 04/13/2008 5:48 PM CDT OR 9 us Riky Mejía MD HEMATOLOGY ORDERABLES Edite d INTERFACE SYSTEM Refer to clinic/hospital department [facility] CLIA# [id number] [facility] [place] [address] * (ABNORMAL) CBC WITH DIFFERENTIAL (04/13/2008 5:29 PM CDT) MCV 90.1 84.0 - 103.0 Fl [facility] BASOPHILS 0.3 0.0 - 1.0 % [facility] MPV 10.2 8.9 - 12.8 Fl [facility] BASOPHILS ABSOLUTE 0.0 0.0 - 0.2 K/ul [facility] HEMOGLOBIN 9.4(L) 12.0 - 16.0 g/dL [facility] MONOCYTES 4.3 2.0 - 10.0 % [facility] RDW 17.1(H) 11.0 - 14.5 % [facility] MONOCYTE ABSOLUTE 0.5 0.1 - 0.6 K/ul [facility] WBC 11.8(H) 4.5 - 11.0 K/ul [facility] NEUTROPHILS 81.9(H) 42.2 - 75.2 % [facility] MCH 29.0 27.0 - 34.0 pg [facility] NEUTROPHIL ABSOLUTE 9.7(H) 2.0 - 8.0 K/ul [facility] HEMATOCRIT 29.2(L) 36.0 - 46.0 % [facility] PLATELETS 414 140 - 440 K/ul [facility] EOSINOPHIL ABSOLUTE 0.2 0.0 - 0.7 K/ul [facility] EOSINOPHILS 1.4 0.0 - 7.0 % [facility] RBC 3.24(L) 4.20 - 5.40 Mil/ul [facility] MCHC 32.2 30.0 - 35.0 g/dL [facility] LYMPHOCYTE ABSOLUTE 1.4 1.2 - 4.0 K/ul [facility] LYMPHOCYTES 12.1(L) 24.0 - 44.0 % [facility] Blood specimen (specimen) 04/13/2008 5:29 PM CDT 04/13/2008 5:29 PM CDT Narrative INTERFACE SYSTEM - 04/13/2008 5:35 PM CDT OR 9 us Riky Mejía MD HEMATOLOGY ORDERABLES Final Result INTERFACE SYSTEM Refer to clinic/hospital department [facility] CLIA# [id number] [address] [place] [address] * (ABNORMAL) POC ISTAT EG 7+ (04/13/2008 5:26 PM CDT) PH 7.68(AA) 7.35 - 7.45 Unit [facility] O2 SATURATION 100(H) 95 - 98 % [facility] PO2 TEMP CORRECT 174(H) 80 - 105 mmHg [facility] FIO2 100 [facility] HEMOGLOBIN POC 9.5 +/-3 g/dL 12.0 - 16.0 g/dL [facility] PCO2 TEMP CORRECT 47(H) 35 - 45 mmHg [facility] POTASSIUM 3.5 3.5 - 4.9 mEq/L [facility] PH TEMP CORRECT 7.67(AA) 7.35 - 7.45 Unit [facility] HCO3 (CALC) POC 53.2(H) 22.0 - 26.0 mmol/l [facility] TCO2 (CALC) POC >50(H) 23 - 27 mmol/l [facility] TEMPERATURE 37.8 DegC [facility] PO2 170(H) 80 - 105 mmHg [facility] CALCIUM IONIZED 0.95(L) 1.12 - 1.32 mmol/l [facility] HEMATOCRIT ABG 28(L) 38 - 51 % [facility] SPECIMEN TYPE Arterial [facility] Comment: Test Performed By [id number] Critical result performed at the point of care. Sample not collected by [facility] Hemoglobin calculated from Hematocrit result PCO2 POC 45 35 - 45 mmHg [facility] SODIUM 135(L) 138 - 146 mEq/L [facility] BASE EXCESS >30(H) -2 - 3 mmol/l [facility] Arterial blood specimen (specimen) 04/13/2008 5:26 PM CDT 04/13/2008 5:34 PM CDT Riky Mejía MD POINT OF CARE TESTING COM F inal Result Performing Organization Address City/[facility] Co de Phone Number INTERFACE SYSTEM Refer to clinic/hospital department [facility] CLIA# [id number] [address] [place] [address] * MRSA CULTURE (04/13/2008 4:30 PM CDT) FINAL REPORT Culture screen for MRSA negative INTERFACE SYSTEM 04/13/2008 4:30 PM CDT 04/13/2008 6:57 PM CDT Riky Mejía MD MICROBIOLOGY - GENERAL ORDE RABLES Final Result Performing Organization Address [facility] de Phone Number INTERFACE SYSTEM Refer to clinic/hospital department documented in this encounter Visit Diagnoses Not on filedocumented in this encounter Additional Health Concerns Infection Onset Date Last Indicated Resolved Time MRSA Comment:Kapil 10/26/15 10/27/2015 10/27/2015 documented as of this encounter Care Teams Weighmaster Lead Relationship Specialty Start Date End Date Jose Bowers MD [address] [place] [phone] PCP - General 12/31/05 documented as of this encounter
--- OUTSIDE RECORDS SUMMARY | 2025-02-05 05:02 | XMS_ITS | Encounter Summary ---
Author Organization [facility] Address [address] [place] [address] Care Team Providers Care Cotton Header Name Role Phone Jose Bowers MD Primary [...] on file Legal Sex Female 6:28 AM [employer] Gender Identity Not on file Sexual [...] GLUCOSE POC 109(H) 60 - 100 mg/dL [facility] Venous blood specimen (specimen) 04/08/2008 4:10 PM CDT 04/09/2008 7:42 AM CDT Riky Mejía MD POINT OF CARE TESTING Final Result Performing Organization Address City/State/[facility] Co de Phone Number INTERFACE SYSTEM Refer to clinic/hospital department [facility] CLIA# [id number] [facility] [place] [address] * (ABNORMAL) POC GLUCOSE (04/08/2008 11:00 AM CDT) GLUCOSE POC 122(H) 60 - 100 mg/dL [facility] Venous blood specimen (specimen) 04/08/2008 11:00 AM CDT 04/09/2008 7:42 AM CDT us Riky Mejía MD POINT OF CARE TESTING Final Result Performing Organization Address [facility] de Phone Number INTERFACE SYSTEM Refer to clinic/hospital department [facility] CLIA# [id number] [address] [place] [address] * (ABNORMAL) POC GLUCOSE (04/08/2008 5:12 AM CDT) GLUCOSE POC 124(H) 60 - 100 mg/dL [facility] Venous blood specimen (specimen) 04/08/2008 5:12 AM CDT 04/08/2008 7:16 AM CDT Riky Mejía MD POINT OF CARE TESTING Final Result Performing Organization Address [facility] de Phone Number INTERFACE SYSTEM Refer to clinic/hospital department [facility] CLIA# [id number] [address] [place] [address] * (ABNORMAL) BASIC METABOLIC PANEL (04/08/2008 4:30 AM CDT) POTASSIUM 4.2 3.5 - 5.0 mEq/L [facility] OSMOLALITY, CALCULATED 284 275 - 295 mOsm/Kg [facility] CREATININE 0.5(L) 0.7 - 1.2 mg/dL [facility] CALCIUM 8.4 8.4 - 10.5 mg/dL [facility] GLUCOSE 141(H) 70 - 110 mg/dL [facility] CHLORIDE 102 95 - 110 mEq/L [facility] ANION GAP 9 9 - 20 mEq/L [facility] SODIUM 137 136 - 145 mEq/L [facility] BUN 11 7 - 17 mg/dL [facility] CO2 30 22 - 32 mmol/l [facility] Blood specimen (specimen) 04/08/2008 4:30 AM CDT 04/08/2008 4:30 AM CDT Riky Mejía MD CHEMISTRY ORDERABLES Final Result INTERFACE SYSTEM Refer to clinic/hospital department [facility] CLIA# [id number] [facility] [place] [address] * (ABNORMAL) CBC WITH DIFFERENTIAL (04/08/2008 4:30 AM CDT) MCV 90.8 84.0 - 103.0 Fl [facility] BASOPHILS 0.2 0.0 - 1.0 % [facility] MPV 10.7 8.9 - 12.8 Fl [facility] BASOPHILS ABSOLUTE 0.0 0.0 - 0.2 K/ul [facility] HEMOGLOBIN 10.6(L) 12.0 - 16.0 g/dL [facility] MONOCYTES 8.0 2.0 - 10.0 % [facility] RDW 16.8(H) 11.0 - 14.5 % [facility] MONOCYTE ABSOLUTE 1.0(H) 0.1 - 0.6 K/ul [facility] WBC 12.7(H) 4.5 - 11.0 K/ul [facility] NEUTROPHILS 86.4(H) 42.2 - 75.2 % [facility] MCH 29.4 27.0 - 34.0 pg [facility] NEUTROPHIL ABSOLUTE 10.9(H) 2.0 - 8.0 K/ul [facility] HEMATOCRIT 32.7(L) 36.0 - 46.0 % [facility] PLATELETS 149 140 - 440 K/ul [facility] EOSINOPHIL ABSOLUTE 0.1 0.0 - 0.7 K/ul [facility] EOSINOPHILS 0.7 0.0 - 7.0 % [facility] RBC 3.60(L) 4.20 - 5.40 Mil/ul [facility] MCHC 32.4 30.0 - 35.0 g/dL [facility] LYMPHOCYTE ABSOLUTE 0.6(L) 1.2 - 4.0 K/ul [facility] LYMPHOCYTES 4.7(L) 24.0 - 44.0 % [facility] Blood specimen (specimen) 04/08/2008 4:30 AM CDT 04/08/2008 4:30 AM CDT us Riky Mejía MD HEMATOLOGY ORDERABLES Final Result Performing Organization Address City/[facility] de Phone Number INTERFACE SYSTEM Refer to clinic/hospital department [facility] CLIA# [id number] [facility] [place] [place] [address] * BLOOD CULTURE (04/07/2008 9:56 PM CDT) FINAL REPORT No growth INTERFA CE SYSTEM Blood specimen (specimen) 04/07/2008 9:56 PM CDT 04/07/2008 9:56 PM CDT us Riky Mejía MD MICROBIOLOGY - GENERAL MINERVA ATKINSON Final Result Performing Organization Address [facility] de Phone Number INTERFACE SYSTEM Refer to clinic/hospital department * BLOOD CULTURE (04/07/2008 9:56 PM CDT) FINAL REPORT No growth INTERFA CE SYSTEM Blood specimen (specimen) 04/07/2008 9:56 PM CDT 04/07/2008 9:56 PM CDT us Riky Mejía MD MICROBIOLOGY - GENERAL [place]ERVA ATKINSON Final Result Performing Organization Address [facility] de Phone Number INTERFACE SYSTEM Refer to clinic/hospital department * (ABNORMAL) POC GLUCOSE (04/07/2008 8:36 PM CDT) GLUCOSE POC 159(H) 60 - 100 mg/dL [facility] Venous blood specimen (specimen) 04/07/2008 8:36 PM CDT 04/08/2008 7:22 AM CDT us Riky Mejía MD POINT OF CARE TESTING Final Result Performing Organization Address City/[facility] de Phone Number INTERFACE SYSTEM Refer to clinic/hospital department [facility] CLIA# [id number] [address] [place] [address] * (ABNORMAL) POC GLUCOSE (04/07/2008 5:39 PM CDT) GLUCOSE POC 122(H) 60 - 100 mg/dL [facility] Venous blood specimen (specimen) 04/07/2008 5:39 PM CDT 04/08/2008 7:16 AM CDT Riky Mejía MD POINT OF CARE TESTING Final Result Performing Organization Address [facility] de Phone Number INTERFACE SYSTEM Refer to clinic/hospital department [facility] CLIA# [id number] [address] [place] [address] * (ABNORMAL) POC ISTAT EG 7+ (04/07/2008 4:27 PM CDT) FIO2 4 [facility] PO2 67(L) 80 - 105 mmHg [facility] CALCIUM IONIZED 1.15 1.12 - 1.32 mmol/l [facility] HEMATOCRIT ABG 32(L) 38 - 51 % [facility] PCO2 POC 45 35 - 45 mmHg [facility] SODIUM 137(L) 138 - 146 mEq/L [facility] BASE EXCESS 7(H) -2 - 3 mmol/l [facility] PH 7.45 7.35 - 7.45 Unit [facility] O2 SATURATION 94(L) 95 - 98 % [facility] PO2 TEMP CORRECT 67(L) 80 - 105 mmHg [facility] SPECIMEN TYPE Arterial [facility] Comment: Test Performed By [id number] Pulse OX: 99 Hemoglobin calculated from Hematocrit result PCO2 TEMP CORRECT 45 35 - 45 mmHg [facility] HEMOGLOBIN POC 10.9 +/-3 g/dL 12.0 - 16.0 g/dL [facility] POTASSIUM 4.0 3.5 - 4.9 mEq/L [facility] PH TEMP CORRECT 7.45 7.35 - 7.45 Unit [facility] HCO3 (CALC) POC 31.1(H) 22.0 - 26.0 mmol/l [facility] TCO2 (CALC) POC 32(H) 23 - 27 mmol/l [facility] Arterial blood specimen (specimen) 04/07/2008 4:27 PM CDT 04/07/2008 4:30 PM CDT Riky Mejía MD POINT OF CARE TESTING COM F inal Result Performing Organization Address [facility] de Phone Number INTERFACE SYSTEM Refer to clinic/hospital department [facility] CLIA# [id number] [address] [place] [address] * (ABNORMAL) POC GLUCOSE (04/07/2008 11:30 AM CDT) GLUCOSE POC 108(H) 60 - 100 mg/dL [facility] Venous blood specimen (specimen) 04/07/2008 11:30 AM CDT 04/08/2008 7:16 AM CDT Riky Mejía MD POINT OF CARE TESTING Final Result Performing Organization Address [facility] de Phone Number INTERFACE SYSTEM Refer to clinic/hospital department [facility] CLIA# [id number] [address] [place] [address] * (ABNORMAL) POC GLUCOSE (04/07/2008 5:02 AM CDT) GLUCOSE POC 138(H) 60 - 100 mg/dL [facility] Venous blood specimen (specimen) 04/07/2008 5:02 AM CDT 04/07/2008 7:10 AM CDT Riky Mejía MD POINT OF CARE TESTING Final Result INTERFACE SYSTEM Refer to clinic/hospital department [facility] CLIA# [id number] [address] [place] [address] * (ABNORMAL) CBC WITH DIFFERENTIAL (04/07/2008 3:13 AM CDT) HEMATOCRIT 30.3(L) 36.0 - 46.0 % [facility] EOSINOPHILS 1.6 0.0 - 7.0 % [facility] PLATELETS 140 140 - 440 K/ul [facility] PERIPHERAL BLOOD SMEAR REVIEW Automated Diff [facility] EOSINOPHIL ABSOLUTE 0.2 0.0 - 0.7 K/ul [facility] RBC 3.33(L) 4.20 - 5.40 Mil/ul [facility] LYMPHOCYTES 6.7(L) 24.0 - 44.0 % [facility] MCHC 32.3 30.0 - 35.0 g/dL [facility] LYMPHOCYTE ABSOLUTE 0.8(L) 1.2 - 4.0 K/ul [facility] MCV 91.0 84.0 - 103.0 Fl [facility] MPV 11.6 8.9 - 12.8 Fl [facility] BASOPHILS ABSOLUTE 0.0 0.0 - 0.2 K/ul [facility] BASOPHILS 0.2 0.0 - 1.0 % [facility] HEMOGLOBIN 9.8(L) 12.0 - 16.0 g/dL [facility] RDW 16.9(H) 11.0 - 14.5 % [facility] MONOCYTE ABSOLUTE 1.1(H) 0.1 - 0.6 K/ul [facility] MONOCYTES 9.4 2.0 - 10.0 % [facility] WBC 11.7(H) 4.5 - 11.0 K/ul [facility] MCH 29.4 27.0 - 34.0 pg [facility] NEUTROPHIL ABSOLUTE 9.6(H) 2.0 - 8.0 K/ul [facility] NEUTROPHILS 82.1(H) 42.2 - 75.2 % [facility] Blood specimen (specimen) 04/07/2008 3:13 AM CDT 04/07/2008 3:19 AM CDT us Riky Mejía MD HEMATOLOGY ORDERABLES Final Result Performing Organization Address City/[facility] Phone Number INTERFACE SYSTEM Refer to clinic/hospital department [facility] CLIA# [id number] [address] [place] [address] * (ABNORMAL) BASIC METABOLIC PANEL (04/07/2008 3:13 AM CDT) [facility] OSMOLALITY, CALCULATED 291 275 - 295 mOsm/Kg [facility] POTASSIUM 4.1 3.5 - 5.0 mEq/L [facility] CREATININE 0.6(L) 0.7 - 1.2 mg/dL [facility] CALCIUM 8.6 8.4 - 10.5 mg/dL [facility] GLUCOSE 141(H) 70 - 110 mg/dL [facility] CHLORIDE 105 95 - 110 mEq/L [facility] SODIUM 140 136 - 145 mEq/L [facility] ANION GAP 7(L) 9 - 20 mEq/L [facility] BUN 14 7 - 17 mg/dL [facility] CO2 32 22 - 32 mmol/l [facility] Blood specimen (specimen) 04/07/2008 3:13 AM CDT 04/07/2008 3:19 AM CDT us Riky Mejía MD CHEMISTRY ORDERABLES Final Result Performing Organization Address [facility] de Phone Number INTERFACE SYSTEM Refer to clinic/hospital department [facility] CLIA# [id number] [address] [place] [address] * (ABNORMAL) POC GLUCOSE (04/06/2008 8:09 PM CDT) [facility] GLUCOSE POC 118(H) 60 - 100 mg/dL [facility] Venous blood specimen (specimen) 04/06/2008 8:09 PM CDT 04/07/2008 7:13 AM CDT Riky Mejía MD POINT OF CARE TESTING Final Result Performing Organization Address [facility] Phone Number INTERFACE SYSTEM Refer to clinic/hospital department [facility] CLIA# [id number] [address] [place] [address] * (ABNORMAL) POC GLUCOSE (04/06/2008 5:03 PM CDT) GLUCOSE POC 131(H) 60 - 100 mg/dL [facility] Venous blood specimen (specimen) 04/06/2008 5:03 PM CDT 04/07/2008 7:10 AM CDT Riky Mejía MD POINT OF CARE TESTING Final Result Performing Organization Address [facility] Phone Number INTERFACE SYSTEM Refer to clinic/hospital department [facility] CLIA# [id number] [address] [place] [address] * (ABNORMAL) POC GLUCOSE (04/06/2008 10:59 AM CDT) GLUCOSE POC 128(H) 60 - 100 mg/dL [facility] Venous blood specimen (specimen) 04/06/2008 10:59 AM CDT 04/07/2008 7:10 AM CDT Riky Mejía MD POINT OF CARE TESTING Final Result Performing Organization Address [facility] de Phone Number INTERFACE SYSTEM Refer to clinic/hospital department [facility] CLIA# [id number] [address] [place] [address] * XR CHEST PA OR AP (04/06/2008 [...] accentuated by above factors. - Dictated By: Frederic Vieyra M.D. Electronically Signed By: Frederic Vieyra M.D. Date Signed: 04/06/08 Procedure Note [...] GLUCOSE POC 126(H) 60 - 100 mg/dL [facility] Venous blood specimen (specimen) 04/06/2008 6:02 AM CDT 04/06/2008 7:01 AM CDT Riky Mejía MD POINT OF CARE TESTING Final Result INTERFACE SYSTEM Refer to clinic/hospital department [facility] CLIA# [id number] [address] [place] [address] * (ABNORMAL) CBC WITH DIFFERENTIAL (04/06/2008 3:55 AM CDT) NEUTROPHILS 81.1(H) 42.2 - 75.2 % [facility] MCH 29.1 27.0 - 34.0 pg [facility] NEUTROPHIL ABSOLUTE 8.9(H) 2.0 - 8.0 K/ul [facility] HEMATOCRIT 31.3(L) 36.0 - 46.0 % [facility] PLATELETS 122(L) 140 - 440 K/ul [facility] EOSINOPHIL ABSOLUTE 0.3 0.0 - 0.7 K/ul [facility] EOSINOPHILS 3.1 0.0 - 7.0 % [facility] RBC 3.47(L) 4.20 - 5.40 Mil/ul [facility] MCHC 32.3 30.0 - 35.0 g/dL [facility] LYMPHOCYTE ABSOLUTE 0.9(L) 1.2 - 4.0 K/ul [facility] LYMPHOCYTES 8.4(L) 24.0 - 44.0 % [facility] MCV 90.2 84.0 - 103.0 Fl [facility] BASOPHILS 0.2 0.0 - 1.0 % [facility] MPV 11.8 8.9 - 12.8 Fl [facility] BASOPHILS ABSOLUTE 0.0 0.0 - 0.2 K/ul [facility] HEMOGLOBIN 10.1(L) 12.0 - 16.0 g/dL [facility] MONOCYTES 7.2 2.0 - 10.0 % [facility] RDW 17.0(H) 11.0 - 14.5 % [facility] MONOCYTE ABSOLUTE 0.8(H) 0.1 - 0.6 K/ul [facility] WBC 11.0 4.5 - 11.0 K/ul [facility] Blood specimen (specimen) 04/06/2008 3:55 AM CDT 04/06/2008 4:00 AM CDT Marquis Scott MD HEMATOLOGY ORDERABLES Final Res ult INTERFACE SYSTEM Refer to clinic/hospital department [facility] CLIA# [id number] [facility] [place] [address] * (ABNORMAL) RENAL FUNCTION PANEL (04/06/2008 3:55 AM CDT) GLUCOSE 218(H) 70 - 110 mg/dL [facility] OSMOLALITY, CALCULATED 295 275 - 295 mOsm/Kg [facility] CHLORIDE 106 95 - 110 mEq/L [facility] ALBUMIN 3.0(L) 3.5 - 5.0 g/dL [facility] SODIUM 138 136 - 145 mEq/L [facility] BUN 22(H) 7 - 17 mg/dL [facility] CO2 30 22 - 32 mmol/l [facility] PHOSPHORUS 2.0(L) 2.5 - 4.6 mg/dL [facility] POTASSIUM 4.7 3.5 - 5.0 mEq/L [facility] ANION GAP 7(L) 9 - 20 mEq/L [facility] CREATININE 0.6(L) 0.7 - 1.2 mg/dL [facility] CALCIUM 8.2(L) 8.4 - 10.5 mg/dL [facility] Blood specimen (specimen) 04/06/2008 3:55 AM CDT 04/06/2008 4:00 AM CDT Marquis Scott MD CHEMISTRY ORDERABLES Final Resu lt Performing Organization Address City/[facility] Co de Phone Number INTERFACE SYSTEM Refer to clinic/hospital department [facility] CLIA# [id number] [address] [place] [address] * (ABNORMAL) POC GLUCOSE (04/05/2008 8:20 PM CDT) GLUCOSE POC 114(H) 60 - 100 mg/dL [facility] Venous blood specimen (specimen) 04/05/2008 8:20 PM CDT 04/06/2008 7:01 AM CDT us Riky Mejía MD POINT OF CARE TESTING Final Result Performing Organization Address [facility] Phone Number INTERFACE SYSTEM Refer to clinic/hospital department [facility] CLIA# [id number] [address] [place] [address] * (ABNORMAL) POC GLUCOSE (04/05/2008 4:50 PM CDT) GLUCOSE POC 118(H) 60 - 100 mg/dL [facility] Venous blood specimen (specimen) 04/05/2008 4:50 PM CDT 04/06/2008 7:01 AM CDT us Riky Mejía MD POINT OF CARE TESTING Final Result Performing Organization Address [facility] Phone Number INTERFACE SYSTEM Refer to clinic/hospital department [facility] CLIA# [id number] [address] [place] [address] * IV CATHETER CULTURE (04/05/2008 4:00 PM CDT) FINAL REPORT No growth INTERFA CE SYSTEM 04/05/2008 4:0 0 PM CDT 04/05/2008 4:00 PM CDT us Riky Mejía MD MICROBIOLOGY - GENERAL MINERVA ATKINSON Final Result Performing Organization Address [facility] Phone Number INTERFACE SYSTEM Refer to clinic/hospital [...] By: Carlee Ochoa M.D. Date Signed: 04/05/08 Procedure Note [...] (ABNORMAL) POC GLUCOSE (04/05/2008 11:06 AM CDT) GLUCOSE POC 120(H) 60 - 100 mg/dL [facility] Venous blood specimen (specimen) 04/05/2008 11:06 AM CDT 04/06/2008 7:01 AM CDT Riky Mejía MD POINT OF CARE TESTING Final Result INTERFACE SYSTEM Refer to clinic/hospital department [facility] CLIA# [id number] [address] [place] [address] * (ABNORMAL) POC GLUCOSE (04/05/2008 7:26 AM CDT) GLUCOSE POC 120(H) 60 - 100 mg/dL [facility] Venous blood specimen (specimen) 04/05/2008 7:26 AM CDT 04/06/2008 7:01 AM CDT Riky Mejía MD POINT OF CARE TESTING Final Result Performing Organization Address City/State/[facility] Co de Phone Number INTERFACE SYSTEM Refer to clinic/hospital department [facility] CLIA# [id number] [address] [place] [address] * PT AND APTT (04/05/2008 3:04 AM CDT) PTT 24.1 22.5 - 36.5 Secs [facility] Comment: Therapeutic Range: Hi-level PE/DVT heparin protocol 80.1 -95.0 sec Lo-level PE/DVT heparin protocol 67.1 - 80.0 sec Cardiac Heparin Protocol 67.1 - 85.0 sec Neuro Heparin Protocol 67.1 - 80.0 sec As of 09/25/2007 note change in APTT Normal Range. PROTIME 14.8 12.8 - 15.8 Secs [facility] Comment:As of 2007 not e change in normal range. INR 1.0 [facility] Comment: Expected Values for INR: DVT/PE Goal INR 2.5; range 2.0 - 3.0 Valve Replacement Tissue Goal INR 2.5; range 2.0 - 3.0 Mechanical Goal INR 3.0; range 2.5 - 3.5 POST-RI Goal INR 2.5; range 2.0 - 3.0 or Goal 3.0; range 2.5 - 3.5 Atrial Fibrillation Goal INR 2.5; range 2.0 - 3.0 Ischemic Stroke Goal INR 2.5; range 2.0 - 3.0 For additional information see Guidelines for Anticoagulation available from the pharmacy [facility] [phone] Blood specimen (specimen) 04/05/2008 3:04 AM CDT 04/05/2008 3:08 AM CDT Riky Mejía MD HEMATOLOGY ORDERABLES Edite d Performing Organization Address [facility] Phone Number INTERFACE SYSTEM Refer to clinic/hospital department [facility] CLIA# [id number] [address] [place] [address] * MAGNESIUM LEVEL (04/05/2008 3:04 AM CDT) MAGNESIUM 2.1 1.7 - 2.4 mg/dL [facility] Blood specimen (specimen) 04/05/2008 3:04 AM CDT 04/05/2008 3:08 AM CDT Riky Mejía MD CHEMISTRY ORDERABLES Final Result Performing Organization Address [facility] Phone Number INTERFACE SYSTEM Refer to clinic/hospital department [facility] CLIA# [id number] [address] [place] [address] * (ABNORMAL) PHOSPHORUS (04/05/2008 3:04 AM CDT) PHOSPHORUS 1.7(L) 2.5 - 4.6 mg/dL [facility] Blood specimen (specimen) 04/05/2008 3:04 AM CDT 04/05/2008 3:08 AM CDT Riky Mejía MD CHEMISTRY ORDERABLES Final Result Performing Organization Address [facility] Phone Number INTERFACE SYSTEM Refer to clinic/hospital department [facility] CLIA# [id number] [address] [place] [address] * (ABNORMAL) BASIC METABOLIC PANEL (04/05/2008 3:04 AM CDT) CO2 30 22 - 32 mmol/l [facility] OSMOLALITY, CALCULATED 307(H) 275 - 295 mOsm/Kg [facility] POTASSIUM 3.9 3.5 - 5.0 mEq/L [facility] CREATININE 0.7 0.7 - 1.2 mg/dL [facility] CALCIUM 8.2(L) 8.4 - 10.5 mg/dL [facility] GLUCOSE 126(H) 70 - 110 mg/dL [facility] CHLORIDE 112(H) 95 - 110 mEq/L [facility] SODIUM 146(H) 136 - 145 mEq/L [facility] ANION GAP 8(L) 9 - 20 mEq/L [facility] BUN 32(H) 7 - 17 mg/dL [facility] Blood specimen (specimen) 04/05/2008 3:04 AM CDT 04/05/2008 3:08 AM CDT us Riky Mejía MD CHEMISTRY ORDERABLES Final Result Performing Organization Address City/State/[facility] Co de Phone Number INTERFACE SYSTEM Refer to clinic/hospital department [facility] CLIA# [id number] [address] [place] [address] * (ABNORMAL) CBC WITH DIFFERENTIAL (04/05/2008 3:04 AM CDT) EOSINOPHIL ABSOLUTE 0.2 0.0 - 0.7 K/ul [facility] EOSINOPHILS 2.2 0.0 - 7.0 % [facility] PERIPHERAL BLOOD SMEAR REVIEW Automated Diff [facility] RBC 3.51(L) 4.20 - 5.40 Mil/ul [facility] MCHC 33.2 30.0 - 35.0 g/dL [facility] LYMPHOCYTE ABSOLUTE 1.1(L) 1.2 - 4.0 K/ul [facility] LYMPHOCYTES 9.6(L) 24.0 - 44.0 % [facility] MCV 88.3 84.0 - 103.0 Fl [facility] BASOPHILS 0.1 0.0 - 1.0 % [facility] MPV 11.0 8.9 - 12.8 Fl [facility] BASOPHILS ABSOLUTE 0.0 0.0 - 0.2 K/ul [facility] HEMOGLOBIN 10.3(L) 12.0 - 16.0 g/dL [facility] MONOCYTES 8.4 2.0 - 10.0 % [facility] RDW 17.1(H) 11.0 - 14.5 % [facility] MONOCYTE ABSOLUTE 0.9(H) 0.1 - 0.6 K/ul [facility] WBC 10.9 4.5 - 11.0 K/ul [facility] NEUTROPHILS 79.7(H) 42.2 - 75.2 % [facility] MCH 29.3 27.0 - 34.0 pg [facility] NEUTROPHIL ABSOLUTE 8.7(H) 2.0 - 8.0 K/ul [facility] HEMATOCRIT 31.0(L) 36.0 - 46.0 % [facility] PLATELETS 91(L) 140 - 440 K/ul [facility] Blood specimen (specimen) 04/05/2008 3:04 AM CDT 04/05/2008 3:08 AM CDT Riky Mejía MD HEMATOLOGY ORDERABLES Final Result Performing Organization Address City/State/[facility] Co de Phone Number INTERFACE SYSTEM Refer to clinic/hospital department [facility] CLIA# [id number] [address] [place] [id number] * (ABNORMAL) RENAL FUNCTION PANEL (04/04/2008 5:04 PM CDT) ANION GAP 8(L) 9 - 20 mEq/L [facility] PHOSPHORUS 1.9(L) 2.5 - 4.6 mg/dL [facility] ALBUMIN 2.9(L) 3.5 - 5.0 g/dL [facility] CHLORIDE 117(H) 95 - 110 mEq/L [facility] CREATININE 1.2 0.7 - 1.2 mg/dL [facility] SODIUM 147(H) 136 - 145 mEq/L [facility] GLUCOSE 124(H) 70 - 110 mg/dL [facility] CO2 26 22 - 32 mmol/l [facility] CALCIUM 7.5(L) 8.4 - 10.5 mg/dL [facility] POTASSIUM 3.5 3.5 - 5.0 mEq/L [facility] OSMOLALITY, CALCULATED 309(H) 275 - 295 mOsm/Kg [facility] BUN 34(H) 7 - 17 mg/dL [facility] Blood specimen (specimen) 04/04/2008 5:04 PM CDT 04/04/2008 5:06 PM CDT us Riky Mejía MD CHEMISTRY ORDERABLES Edited INTERFACE SYSTEM Refer to clinic/hospital department [facility] CLIA# [id number] [address] [place] [address] * (ABNORMAL) CBC WITH DIFFERENTIAL (04/04/2008 5:04 PM CDT) HEMOGLOBIN 9.6(L) 12.0 - 16.0 g/dL [facility] RDW 16.8(H) 11.0 - 14.5 % [facility] MONOCYTE ABSOLUTE 0.9(H) 0.1 - 0.6 K/ul [facility] MONOCYTES 10.0 2.0 - 10.0 % [facility] WBC 9.4 4.5 - 11.0 K/ul [facility] MCH 29.0 27.0 - 34.0 pg [facility] NEUTROPHIL ABSOLUTE 7.3 2.0 - 8.0 K/ul [facility] NEUTROPHILS 77.7(H) 42.2 - 75.2 % [facility] HEMATOCRIT 28.9(L) 36.0 - 46.0 % [facility] EOSINOPHILS 1.1 0.0 - 7.0 % [facility] PLATELETS 83(L) 140 - 440 K/ul [facility] PERIPHERAL BLOOD SMEAR REVIEW Automated Diff [facility] EOSINOPHIL ABSOLUTE 0.1 0.0 - 0.7 K/ul [facility] RBC 3.31(L) 4.20 - 5.40 Mil/ul [facility] LYMPHOCYTES 11.1(L) 24.0 - 44.0 % [facility] MCHC 33.2 30.0 - 35.0 g/dL [facility] LYMPHOCYTE ABSOLUTE 1.0(L) 1.2 - 4.0 K/ul [facility] MCV 87.3 84.0 - 103.0 Fl [facility] MPV 11.6 8.9 - 12.8 Fl [facility] BASOPHILS ABSOLUTE 0.0 0.0 - 0.2 K/ul [facility] BASOPHILS 0.1 0.0 - 1.0 % [facility] Blood specimen (specimen) 04/04/2008 5:04 PM CDT 04/04/2008 5:06 PM CDT us Riky Mejía MD HEMATOLOGY ORDERABLES Final Result Performing Organization Address City/State/[facility] Co de Phone Number INTERFACE SYSTEM Refer to clinic/hospital department [facility] CLIA# [id number] [facility] [place] [address] * (ABNORMAL) POC ISTAT EG 7+ (04/04/2008 9:15 AM CDT) SODIUM 145 138 - 146 mEq/L [facility] BASE EXCESS 0 -2 - 3 mmol/l [facility] PH 7.39 7.35 - 7.45 Unit [facility] O2 SATURATION 94(L) 95 - 98 % [facility] PO2 TEMP CORRECT 70(L) 80 - 105 mmHg [facility] PCO2 TEMP CORRECT 42 35 - 45 mmHg [facility] HEMOGLOBIN POC 8.8 +/-3 g/dL 12.0 - 16.0 g/dL [facility] POTASSIUM 3.2(L) 3.5 - 4.9 mEq/L [facility] PH TEMP CORRECT 7.39 7.35 - 7.45 Unit [facility] HCO3 (CALC) POC 25.0 22.0 - 26.0 mmol/l [facility] TCO2 (CALC) POC 26 23 - 27 mmol/l [facility] SPECIMEN TYPE Arterial [facility] Comment: Test Performed By [id number] Pulse OX: 94 Hemoglobin calculated from Hematocrit result PO2 70(L) 80 - 105 mmHg [facility] CALCIUM IONIZED 1.12 1.12 - 1.32 mmol/l [facility] HEMATOCRIT ABG 26(L) 38 - 51 % [facility] PCO2 POC 42 35 - 45 mmHg [facility] Arterial blood specimen (specimen) 04/04/2008 9:15 AM CDT 04/04/2008 9:18 AM CDT us Riky Mejía MD POINT OF CARE TESTING COM F inal Result Performing Organization Address [facility] de Phone Number INTERFACE SYSTEM Refer to clinic/hospital department [facility] CLIA# [id number] [address] [place] [address] * PTT (04/04/2008 4:19 AM CDT) PTT 26.4 22.5 - 36.5 Secs [facility] Comment: Therapeutic Range: Hi-level PE/DVT heparin protocol 80.1 -95.0 sec Lo-level PE/DVT heparin protocol 67.1 - 80.0 sec Cardiac Heparin Protocol 67.1 - 85.0 sec Neuro Heparin Protocol 67.1 - 80.0 sec As of 09/25/2007 note change in APTT Normal Range. Blood specimen (specimen) 04/04/2008 4:19 AM CDT 04/04/2008 4:23 AM CDT Riky Mejía MD HEMATOLOGY ORDERABLES Final Result Performing Organization Address [facility] Phone Number INTERFACE SYSTEM Refer to clinic/hospital department [facility] CLIA# [id number] [address] [place] [address] * PROTIME-INR (04/04/2008 4:19 AM CDT) PROTIME 15.2 12.8 - 15.8 Secs [facility] Comment:As of 2007 not e change in normal range. INR 1.1 [facility] Comment: Expected Values for INR: DVT/PE Goal INR 2.5; range 2.0 - 3.0 Valve Replacement Tissue Goal INR 2.5; range 2.0 - 3.0 Mechanical Goal INR 3.0; range 2.5 - 3.5 POST-RI Goal INR 2.5; range 2.0 - 3.0 or Goal 3.0; range 2.5 - 3.5 Atrial Fibrillation Goal INR 2.5; range 2.0 - 3.0 Ischemic Stroke Goal INR 2.5; range 2.0 - 3.0 For additional information see Guidelines for Anticoagulation available from the pharmacy Jolene Ramirez Pharm D. [phone] Blood specimen (specimen) 04/04/2008 4:19 AM CDT 04/04/2008 4:23 AM CDT Riky Mejía MD HEMATOLOGY ORDERABLES Final Result Performing Organization Address [facility] Phone Number INTERFACE SYSTEM Refer to clinic/hospital department [facility] CLIA# [id number] [facility] [place] [address] * (ABNORMAL) PHOSPHORUS (04/04/2008 4:19 AM CDT) PHOSPHORUS 1.9(L) 2.5 - 4.6 mg/dL [facility] Blood specimen (specimen) 04/04/2008 4:19 AM CDT 04/04/2008 4:23 AM CDT Riky Mejía MD CHEMISTRY ORDERABLES Final Result Performing Organization Address [facility] de Phone Number INTERFACE SYSTEM Refer to clinic/hospital department [facility] CLIA# [id number] [address] [place] [address] * MAGNESIUM LEVEL (04/04/2008 4:19 AM CDT) [facility] MAGNESIUM 1.8 1.7 - 2.4 mg/dL [facility] Blood specimen (specimen) 04/04/2008 4:19 AM CDT 04/04/2008 4:23 AM CDT Riky Mejía MD CHEMISTRY ORDERABLES Final Result Performing Organization Address [facility] de Phone Number INTERFACE SYSTEM Refer to clinic/hospital department [facility] CLIA# [id number] [address] [place] [address] * (ABNORMAL) COMPREHENSIVE METABOLIC PANEL (04/04/2008 4:19 AM CDT) [facility] ALBUMIN/GLOBULIN RATIO 1.4 1.0 - 2.3 [facility] POTASSIUM 3.3(L) 3.5 - 5.0 mEq/L [facility] ANION GAP 11 9 - 20 mEq/L [facility] ALBUMIN 3.0(L) 3.5 - 5.0 g/dL [facility] CREATININE 2.1(H) 0.7 - 1.2 mg/dL [facility] ALT 20 4 - 36 IU/L [facility] CALCIUM 8.3(L) 8.4 - 10.5 mg/dL [facility] GLUCOSE 124(H) 70 - 110 mg/dL [facility] ALKALINE PHOSPHATASE 42 25 - 100 U/L [facility] CHLORIDE 111(H) 95 - 110 mEq/L [facility] OSMOLALITY, CALCULATED 310(H) 275 - 295 mOsm/Kg [facility] GLOBULIN (CALC) 2.2(L) 2.4 - 3.9 g/dL [facility] TOTAL PROTEIN 5.2(L) 6.3 - 8.2 g/dL [facility] SODIUM 146(H) 136 - 145 mEq/L [facility] BILIRUBIN TOTAL 0.9 0.3 - 1.2 mg/dL [facility] CO2 27 22 - 32 mmol/l [facility] BUN 42(H) 7 - 17 mg/dL [facility] AST 104(H) 8 - 33 U/L [facility] Blood specimen (specimen) 04/04/2008 4:19 AM CDT 04/04/2008 4:23 AM CDT Riky Mejía MD CHEMISTRY ORDERABLES Final Result INTERFACE SYSTEM Refer to clinic/hospital department [facility] CLIA# [id number] [address] [place] [address] * (ABNORMAL) CBC WITH DIFFERENTIAL (04/04/2008 4:19 AM CDT) HEMATOCRIT 28.7(L) 36.0 - 46.0 % [facility] EOSINOPHILS 0.2 0.0 - 7.0 % [facility] PLATELETS 83(L) 140 - 440 K/ul [facility] PERIPHERAL BLOOD SMEAR REVIEW Automated Diff [facility] EOSINOPHIL ABSOLUTE 0.0 0.0 - 0.7 K/ul [facility] RBC 3.33(L) 4.20 - 5.40 Mil/ul [facility] LYMPHOCYTES 12.1(L) 24.0 - 44.0 % [facility] MCHC 33.4 30.0 - 35.0 g/dL [facility] LYMPHOCYTE ABSOLUTE 1.1(L) 1.2 - 4.0 K/ul [facility] MCV 86.2 84.0 - 103.0 Fl [facility] MPV 11.5 8.9 - 12.8 Fl [facility] BASOPHILS ABSOLUTE 0.0 0.0 - 0.2 K/ul [facility] BASOPHILS 0.2 0.0 - 1.0 % [facility] HEMOGLOBIN 9.6(L) 12.0 - 16.0 g/dL [facility] RDW 16.1(H) 11.0 - 14.5 % [facility] MONOCYTE ABSOLUTE 1.0(H) 0.1 - 0.6 K/ul [facility] MONOCYTES 10.5(H) 2.0 - 10.0 % [facility] WBC 9.0 4.5 - 11.0 K/ul [facility] MCH 28.8 27.0 - 34.0 pg [facility] NEUTROPHIL ABSOLUTE 6.9 2.0 - 8.0 K/ul [facility] NEUTROPHILS 77.0(H) 42.2 - 75.2 % [facility] Blood specimen (specimen) 04/04/2008 4:19 AM CDT 04/04/2008 4:23 AM CDT us Riky Mejía MD HEMATOLOGY ORDERABLES Final Result INTERFACE SYSTEM Refer to clinic/hospital department [facility] CLIA# [id number] [address] [place] [address] * (ABNORMAL) POC ISTAT EG 7+ (04/04/2008 4:07 AM CDT) POTASSIUM 3.1(L) 3.5 - 4.9 mEq/L [facility] PH TEMP CORRECT 7.45 7.35 - 7.45 Unit [facility] HCO3 (CALC) POC 24.5 22.0 - 26.0 mmol/l [facility] TCO2 (CALC) POC 26 23 - 27 mmol/l [facility] FIO2 50 [facility] PO2 138(H) 80 - 105 mmHg [facility] CALCIUM IONIZED 1.10(L) 1.12 - 1.32 mmol/l [facility] HEMATOCRIT ABG 25(L) 38 - 51 % [facility] PCO2 POC 35 35 - 45 mmHg [facility] SODIUM 143 138 - 146 mEq/L [facility] BASE EXCESS 1 -2 - 3 mmol/l [facility] PH 7.45 7.35 - 7.45 Unit [facility] O2 SATURATION 99(H) 95 - 98 % [facility] PO2 TEMP CORRECT 138(H) 80 - 105 mmHg [facility] SPECIMEN TYPE Arterial [facility] Comment: Test Performed By [id number] Tidal volume: 500 PEEP: 10 Rate: 14 Pulse OX: 100 Hemoglobin calculated from Hematocrit result PCO2 TEMP CORRECT 35 35 - 45 mmHg [facility] HEMOGLOBIN POC 8.5 +/-3 g/dL 12.0 - 16.0 g/dL [facility] Arterial blood specimen (specimen) 04/04/2008 4:07 AM CDT 04/04/2008 5:13 AM CDT us Riky Mejía MD POINT OF CARE TESTING COM F inal Result INTERFACE SYSTEM Refer to clinic/hospital department [facility] CLIA# [id number] [address] [place] [address] * MRSA CULTURE (04/03/2008 9:03 PM CDT) FINAL REPORT Culture screen for MRSA negative INTERFACE SYSTEM 04/03/2008 9:03 PM CDT 04/03/2008 9:03 PM CDT us Riky Mejía MD MICROBIOLOGY - GENERAL [place] Final Result Performing Organization Address City/[facility]/ZIP Co de Phone Number INTERFACE SYSTEM Refer to clinic/hospital department * XR CHEST PA OR AP (04/03/2008 8:55 PM CDT) Anatomical Region Laterality Modality Chest Other 04/03/2008 8:55 PM CDT Narrative 04/04/2008 5:55 PM CDT Portable view of the chest was obtained. History is postop hemorrhage. The ET tube is well positioned. There is a poor inspiratory effort. The heart size is upper limits of normal. There is mild bibasilar atelectasis. No pneumothorax is seen. Impression: Bibasilar atelectasis. - Dictated By: Heriberto Estrella M.D. Electronically Signed By: Heriberto Estrella M.D. Date Signed: 04/04/08 Procedure Note [...] CALCIUM IONIZED 1.00(L) 1.12 - 1.32 mmol/l [facility] HEMATOCRIT ABG 24(L) 38 - 51 % [facility] PCO2 POC 36 35 - 45 mmHg [facility] SODIUM 144 138 - 146 mEq/L [facility] BASE EXCESS 0 -2 - 3 mmol/l [facility] PH 7.44 7.35 - 7.45 Unit [facility] O2 SATURATION 98 95 - 98 % [facility] PO2 TEMP CORRECT 101 80 - 105 mmHg [facility] SPECIMEN TYPE Arterial [facility] Comment: Test Performed By [id number] Tidal volume: 500 PEEP: 10 Rate: 16 Pulse OX: 96 Hemoglobin calculated from Hematocrit result PCO2 TEMP CORRECT 36 35 - 45 mmHg [facility] HEMOGLOBIN POC 8.2 +/-3 g/dL 12.0 - 16.0 g/dL [facility] POTASSIUM 3.2(L) 3.5 - 4.9 mEq/L [facility] PH TEMP CORRECT 7.44 7.35 - 7.45 Unit [facility] HCO3 (CALC) POC 23.9 22.0 - 26.0 mmol/l [facility] TCO2 (CALC) POC 25 23 - 27 mmol/l [facility] FIO2 60 [facility] PO2 101 80 - 105 mmHg [facility] Arterial blood specimen (specimen) 04/03/2008 8:35 PM CDT 04/03/2008 8:48 PM CDT Riky Mejía MD POINT OF CARE TESTING COM F inal Result Performing Organization Address [facility] de Phone Number INTERFACE SYSTEM Refer to clinic/hospital department [facility] CLIA# [id number] [address] [place] [address] * TYPE AND CROSSMATCH (04/03/2008 8:13 PM CDT) [facility] BLOOD BANK PRODUCT INTERFACE SYSTEM Blood specimen (specimen) 04/03/2008 8:13 PM CDT 04/03/2008 8:17 PM CDT Riky Mejía MD BLOOD BANK ORDERABLES Edite d Performing Organization Address [facility] Phone Number INTERFACE SYSTEM Refer to clinic/hospital department * (ABNORMAL) CBC WITH DIFFERENTIAL (04/03/2008 8:13 PM CDT) Pathologist [facility] HEMATOCRIT 26.9(L) 36.0 - 46.0 % [facility] PLATELETS 102(L) 140 - 440 K/ul [facility] EOSINOPHIL ABSOLUTE 0.0 0.0 - 0.7 K/ul [facility] EOSINOPHILS 0.1 0.0 - 7.0 % [facility] RBC 3.13(L) 4.20 - 5.40 Mil/ul [facility] MCHC 33.8 30.0 - 35.0 g/dL [facility] LYMPHOCYTE ABSOLUTE 1.1(L) 1.2 - 4.0 K/ul [facility] LYMPHOCYTES 12.2(L) 24.0 - 44.0 % [facility] MCV 85.9 84.0 - 103.0 Fl [facility] BASOPHILS 0.1 0.0 - 1.0 % [facility] MPV 11.7 8.9 - 12.8 Fl [facility] BASOPHILS ABSOLUTE 0.0 0.0 - 0.2 K/ul [facility] HEMOGLOBIN 9.1(L) 12.0 - 16.0 g/dL [facility] MONOCYTES 11.9(H) 2.0 - 10.0 % [facility] RDW 16.2(H) 11.0 - 14.5 % [facility] MONOCYTE ABSOLUTE 1.1(H) 0.1 - 0.6 K/ul [facility] WBC 9.0 4.5 - 11.0 K/ul [facility] NEUTROPHILS 75.7(H) 42.2 - 75.2 % [facility] MCH 29.1 27.0 - 34.0 pg [facility] NEUTROPHIL ABSOLUTE 6.8 2.0 - 8.0 K/ul [facility] Blood specimen (specimen) 04/03/2008 8:13 PM CDT 04/03/2008 8:17 PM CDT us Riky Mejía MD HEMATOLOGY ORDERABLES Final Result INTERFACE SYSTEM Refer to clinic/hospital department [facility] CLIA# [id number] [address] [place] [address] * PTT (04/03/2008 8:13 PM CDT) PTT 28.1 22.5 - 36.5 Secs [facility] Comment: Therapeutic Range: Hi-level PE/DVT heparin protocol 80.1 -95.0 sec Lo-level PE/DVT heparin protocol 67.1 - 80.0 sec Cardiac Heparin Protocol 67.1 - 85.0 sec Neuro Heparin Protocol 67.1 - 80.0 sec As of 09/25/2007 note change in APTT Normal Range. Blood specimen (specimen) 04/03/2008 8:13 PM CDT 04/03/2008 8:17 PM CDT Riky Mejía MD HEMATOLOGY ORDERABLES Final Result Performing Organization Address [facility] Phone Number INTERFACE SYSTEM Refer to clinic/hospital department [facility] CLIA# [id number] [address] [place] [address] * (ABNORMAL) PROTIME-INR (04/03/2008 8:13 PM CDT) INR 1.2 [facility] Comment: Expected Values for INR: DVT/PE Goal INR 2.5; range 2.0 - 3.0 Valve Replacement Tissue Goal INR 2.5; range 2.0 - 3.0 Mechanical Goal INR 3.0; range 2.5 - 3.5 POST-RI Goal INR 2.5; range 2.0 - 3.0 or Goal 3.0; range 2.5 - 3.5 Atrial Fibrillation Goal INR 2.5; range 2.0 - 3.0 Ischemic Stroke Goal INR 2.5; range 2.0 - 3.0 For additional information see Guidelines for Anticoagulation available from the pharmacy [facility]ach[facility] Pham [phone] PROTIME 16.3(H) 12.8 - 15.8 Secs [facility] Comment:As of 2007 not e change in normal range. Blood specimen (specimen) 04/03/2008 8:13 PM CDT 04/03/2008 8:17 PM CDT Riky Mejía MD HEMATOLOGY ORDERABLES Final Result Performing Organization Address [facility] de Phone Number INTERFACE SYSTEM Refer to clinic/hospital department [facility] CLIA# [id number] [address] [place] [address] * ANTIBODY SCREEN (04/03/2008 8:13 PM CDT) [facility] ANTIBODY SCREEN Negative [facility] Blood specimen (specimen) 04/03/2008 8:13 PM CDT 04/03/2008 8:17 PM CDT us Riky Mejía MD BLOOD BANK ORDERABLES Final Result Performing Organization Address [facility] de Phone Number INTERFACE SYSTEM Refer to clinic/hospital department [facility] CLIA# [id number] [facility] [place] [address] * ABORH TYPING (04/03/2008 8:13 PM CDT) [facility] ABO/RH TYPE O Positive [facility] Blood specimen (specimen) 04/03/2008 8:13 PM CDT 04/03/2008 8:17 PM CDT us Riky Mejía MD BLOOD BANK ORDERABLES Final Result Performing Organization Address [facility] de Phone Number INTERFACE SYSTEM Refer to clinic/hospital department [facility] CLIA# [id number] [facility] [place] [address] * (ABNORMAL) COMPREHENSIVE METABOLIC PANEL (04/03/2008 8:13 PM CDT) [facility] GLUCOSE 140(H) 70 - 110 mg/dL [facility] ALKALINE PHOSPHATASE 40 25 - 100 U/L [facility] CHLORIDE 112(H) 95 - 110 mEq/L [facility] AST 97(H) 8 - 33 U/L [facility] GLOBULIN (CALC) 1.9(L) 2.4 - 3.9 g/dL [facility] TOTAL PROTEIN 4.9(L) 6.3 - 8.2 g/dL [facility] SODIUM 146(H) 136 - 145 mEq/L [facility] ANION GAP 11 9 - 20 mEq/L [facility] CO2 26 22 - 32 mmol/l [facility] BUN 47(H) 7 - 17 mg/dL [facility] ALT 19 4 - 36 IU/L [facility] ALBUMIN/GLOBULIN RATIO 1.6 1.0 - 2.3 [facility] POTASSIUM 3.2(L) 3.5 - 5.0 mEq/L [facility] OSMOLALITY, CALCULATED 312(H) 275 - 295 mOsm/Kg [facility] ALBUMIN 3.0(L) 3.5 - 5.0 g/dL [facility] CREATININE 2.9(H) 0.7 - 1.2 mg/dL [facility] BILIRUBIN TOTAL 0.6 0.3 - 1.2 mg/dL [facility] CALCIUM 7.6(L) 8.4 - 10.5 mg/dL [facility] Blood specimen (specimen) 04/03/2008 8:13 PM CDT 04/03/2008 8:17 PM CDT Riky Mejía MD CHEMISTRY ORDERABLES Edited INTERFACE SYSTEM Refer to clinic/hospital department [facility] CLIA# [id number] [address] [place] [address] documented in this encounter Visit Diagnoses Not on filedocumented in this encounter Additional Health Concerns Infection Onset Date Last Indicated Resolved Time MRSA Comment:Kapil 10/26/15 10/27/2015 10/27/2015 documented as of this encounter Care Teams Cotton Header Relationship Specialty Start Date End Date Jose Bowers MD [address] [place] [id number] PCP - General 12/31/05 documented as of this encounter
--- OUTSIDE RECORDS SUMMARY | 2025-02-05 05:02 | XMS_ITS | Encounter Summary ---
Author Organization [facility] Address [address] [place] [address] Care Team Providers Care Hose Mender Name Role Phone Jose Bowers MD Primary Care Provider Levon le Encounter Details Date Type Department Care Team (Late st Contact Info) Description 05/01/2008 Outpatient Historical HIS IN BED Sj Ed, Physician NO ADDRESS ON FILE Cassie Woodruff MD [address] [place] [id number] Riky Mejía MD NO ADDRESS ON FILE [...] on file Legal Sex Female 6:28 AM ACID SUPERVISOR Gender Identity Not on file Sexual Orientation Not on file documented as of this encounter Plan of Treatment Not on file documented as of this encounter Procedures Procedure Name Priority Date/Time Associated Diagnosis Comments POC GLUCOSE Routine 05/12/2008 7:37 AM ACID SUPERVISOR POC GLUCOSE Routine 05/11/2008 9:43 PM ACID SUPERVISOR POC GLUCOSE Routine 05/11/2008 5:35 PM ACID SUPERVISOR POC GLUCOSE Routine 05/11/2008 11:40 AM ACID SUPERVISOR POC GLUCOSE Routine 05/11/2008 7:38 AM ACID SUPERVISOR POC GLUCOSE Routine 05/10/2008 9:54 PM ACID SUPERVISOR POC GLUCOSE Routine 05/10/2008 5:34 PM ACID SUPERVISOR POC GLUCOSE Routine 05/10/2008 12:08 PM ACID SUPERVISOR POC GLUCOSE Routine 05/10/2008 8:31 AM ACID SUPERVISOR CBC WITH DIFFERENTIAL Routine 05/10/2008 5:47 AM ACID SUPERVISOR COMPREHENSIVE METABOLIC PANEL Routine 05/10/2008 5:47 AM ACID SUPERVISOR POC GLUCOSE Routine 05/09/2008 9:17 PM ACID SUPERVISOR POC GLUCOSE Routine 05/09/2008 6:31 PM ACID SUPERVISOR POC GLUCOSE Routine 05/09/2008 12:20 PM ACID SUPERVISOR POC GLUCOSE Routine 05/09/2008 8:50 AM ACID SUPERVISOR POC GLUCOSE Routine 05/08/2008 8:06 PM [...] * (ABNORMAL) POC GLUCOSE (05/12/2008 7:37 AM ACID SUPERVISOR) GLUCOSE POC 124(H) 60 - 100 mg/dL [facility] Venous blood specimen (specimen) 05/12/2008 7:37 AM ACID SUPERVISOR 05/13/2008 3:52 AM ACID SUPERVISOR us Riky Mejía MD POINT OF CARE TESTING Final Result Performing Organization Address [facility] Phone Number INTERFACE SYSTEM Refer to clinic/hospital department [facility] CLIA# [id number] [address] [place] [address] * (ABNORMAL) POC GLUCOSE (05/11/2008 9:43 PM ACID SUPERVISOR) GLUCOSE POC 123(H) 60 - 100 mg/dL [facility] Venous blood specimen (specimen) 05/11/2008 9:43 PM ACID SUPERVISOR 05/12/2008 3:33 AM ACID SUPERVISOR us Riky Mejía MD POINT OF CARE TESTING Final Result Performing Organization Address [facility] de Phone Number INTERFACE SYSTEM Refer to clinic/hospital department [facility] CLIA# [id number] [address] [place] [address] * (ABNORMAL) POC GLUCOSE (05/11/2008 5:35 PM ACID SUPERVISOR) GLUCOSE POC 117(H) 60 - 100 mg/dL [facility] Venous blood specimen (specimen) 05/11/2008 5:35 PM ACID SUPERVISOR 05/12/2008 3:33 AM ACID SUPERVISOR Riky Mejía MD POINT OF CARE TESTING Final Result Performing Organization Address City/[facility] de Phone Number INTERFACE SYSTEM Refer to clinic/hospital department [facility] CLIA# [id number] [address] [place] [address] * (ABNORMAL) POC GLUCOSE (05/11/2008 11:40 AM ACID SUPERVISOR) GLUCOSE POC 132(H) 60 - 100 mg/dL [facility] Venous blood specimen (specimen) 05/11/2008 11:40 AM ACID SUPERVISOR 05/12/2008 3:30 AM ACID SUPERVISOR Riky Mejía MD POINT OF CARE TESTING Final Result Performing Organization Address [facility] Phone Number INTERFACE SYSTEM Refer to clinic/hospital department [facility] CLIA# [id number] [address] [place] [address] * (ABNORMAL) POC GLUCOSE (05/11/2008 7:38 AM ACID SUPERVISOR) GLUCOSE POC 121(H) 60 - 100 mg/dL [facility] Venous blood specimen (specimen) 05/11/2008 7:38 AM ACID SUPERVISOR 05/12/2008 3:33 AM ACID SUPERVISOR Riky Mejía MD POINT OF CARE TESTING Final Result Performing Organization Address [facility] de Phone Number INTERFACE SYSTEM Refer to clinic/[facility] CLIA# [id number] [address] [place] [address] * (ABNORMAL) POC GLUCOSE (05/10/2008 9:54 PM ACID SUPERVISOR) GLUCOSE POC 122(H) 60 - 100 mg/dL [facility] Venous blood specimen (specimen) 05/10/2008 9:54 PM ACID SUPERVISOR 05/11/2008 4:24 AM ACID SUPERVISOR Riky Mejía MD POINT OF CARE TESTING Final Result Performing Organization Address [facility] Phone Number INTERFACE SYSTEM Refer to clinic/hospital department [facility] CLIA# [id number] [address] [place] [address] * (ABNORMAL) POC GLUCOSE (05/10/2008 5:34 PM ACID SUPERVISOR) GLUCOSE POC 111(H) 60 - 100 mg/dL [facility] Venous blood specimen (specimen) 05/10/2008 5:34 PM ACID SUPERVISOR 05/11/2008 4:24 AM ACID SUPERVISOR Riky Mejía MD POINT OF CARE TESTING Final Result Performing Organization Address [facility] Phone Number INTERFACE SYSTEM Refer to clinic/hospital department [facility] CLIA# [id number] [address] [place] [address] * (ABNORMAL) POC GLUCOSE (05/10/2008 12:08 PM ACID SUPERVISOR) GLUCOSE POC 127(H) 60 - 100 mg/dL [facility] Venous blood specimen (specimen) 05/10/2008 12:08 PM ACID SUPERVISOR 05/11/2008 4:18 AM ACID SUPERVISOR Riky Mejía MD POINT OF CARE TESTING Final Result Performing Organization Address [facility] de Phone Number INTERFACE SYSTEM Refer to clinic/hospital department [facility] CLIA# [id number] [address] [place] [address] * (ABNORMAL) POC GLUCOSE (05/10/2008 8:31 AM ACID SUPERVISOR) GLUCOSE POC 122(H) 60 - 100 mg/dL [facility] Venous blood specimen (specimen) 05/10/2008 8:31 AM ACID SUPERVISOR 05/11/2008 4:18 AM ACID SUPERVISOR Riky Mejía MD POINT OF CARE TESTING Final Result INTERFACE SYSTEM Refer to clinic/hospital department [facility] CLIA# [id number] [address] [place] [address] * (ABNORMAL) COMPREHENSIVE METABOLIC PANEL (05/10/2008 5:47 AM ACID SUPERVISOR) GLOBULIN (CALC) 2.3(L) 2.4 - 3.9 g/dL [facility] SODIUM 141 136 - 145 mEq/L [facility] BILIRUBIN TOTAL 0.4 0.3 - 1.2 mg/dL [facility] TOTAL PROTEIN 5.0(L) 6.3 - 8.2 g/dL [facility] BUN 7 7 - 17 mg/dL [facility] AST 24 8 - 33 U/L [facility] CO2 30 22 - 32 mmol/l [facility] ALBUMIN/GLOBULIN RATIO 1.2 1.0 - 2.3 [facility] ALBUMIN 2.7(L) 3.5 - 5.0 g/dL [facility] POTASSIUM 3.3(L) 3.5 - 5.0 mEq/L [facility] ANION GAP 7(L) 9 - 20 mEq/L [facility] CALCIUM 8.0(L) 8.4 - 10.5 mg/dL [facility] CREATININE 0.4(L) 0.7 - 1.2 mg/dL [facility] ALT 10 4 - 36 IU/L [facility] GLUCOSE 99 70 - 110 mg/dL [facility] CHLORIDE 107 95 - 110 mEq/L [facility] OSMOLALITY, CALCULATED 286 275 - 295 mOsm/Kg [facility] ALKALINE PHOSPHATASE 73 25 - 100 U/L [facility] Blood specimen (specimen) 05/10/2008 5:47 AM ACID SUPERVISOR 05/10/2008 5:52 AM ACID SUPERVISOR Riky Mejía MD CHEMISTRY ORDERABLES Final Result INTERFACE SYSTEM Refer to clinic/hospital department [facility] CLIA# [id number] [facility] [place] [address] * (ABNORMAL) CBC WITH DIFFERENTIAL (05/10/2008 5:47 AM ACID SUPERVISOR) LYMPHOCYTE ABSOLUTE 0.9(L) 1.2 - 4.0 K/ul [facility] MCV 96.4 84.0 - 103.0 Fl [facility] MPV 10.1 8.9 - 12.8 Fl [facility] BASOPHILS ABSOLUTE 0.0 0.0 - 0.2 K/ul [facility] BASOPHILS 0.7 0.0 - 1.0 % [facility] HEMOGLOBIN 8.3(L) 12.0 - 16.0 g/dL [facility] RDW 18.6(H) 11.0 - 14.5 % [facility] MONOCYTE ABSOLUTE 0.6 0.1 - 0.6 K/ul [facility] MONOCYTES 9.3 2.0 - 10.0 % [facility] WBC 6.1 4.5 - 11.0 K/ul [facility] MCH 29.5 27.0 - 34.0 pg [facility] NEUTROPHIL ABSOLUTE 4.3 2.0 - 8.0 K/ul [facility] NEUTROPHILS 70.5 42.2 - 75.2 % [facility] HEMATOCRIT 27.1(L) 36.0 - 46.0 % [facility] EOSINOPHILS 4.1 0.0 - 7.0 % [facility] PLATELETS 278 140 - 440 K/ul [facility] PERIPHERAL BLOOD SMEAR REVIEW Automated Diff [facility] EOSINOPHIL ABSOLUTE 0.3 0.0 - 0.7 K/ul [facility] RBC 2.81(L) 4.20 - 5.40 Mil/ul [facility] LYMPHOCYTES 15.4(L) 24.0 - 44.0 % [facility] MCHC 30.6 30.0 - 35.0 g/dL [facility] Blood specimen (specimen) 05/10/2008 5:47 AM ACID SUPERVISOR 05/10/2008 5:52 AM ACID SUPERVISOR us Ottoniel Vanegas MD HEMATOLOGY ORDERABLES Teresa l Result Performing Organization Address [facility] Phone Number INTERFACE SYSTEM Refer to clinic/hospital department [facility] CLIA# [id number] [address] [place] [address] * (ABNORMAL) POC GLUCOSE (05/09/2008 9:17 PM ACID SUPERVISOR) COMMENT POC Follow Protocol [facility] GLUCOSE POC 116(H) 60 - 100 mg/dL [facility] Venous blood specimen (specimen) 05/09/2008 9:17 PM ACID SUPERVISOR 05/10/2008 3:50 AM ACID SUPERVISOR us Riky Mejía MD POINT OF CARE TESTING Final Result Performing Organization Address [facility] Phone Number INTERFACE SYSTEM Refer to clinic/hospital department [facility] CLIA# [id number] [address] [place] [address] * POC GLUCOSE (05/09/2008 6:31 PM ACID SUPERVISOR) GLUCOSE POC 96 60 - 100 mg/dL [facility] Venous blood specimen (specimen) 05/09/2008 6:31 PM ACID SUPERVISOR 05/10/2008 3:50 AM ACID SUPERVISOR us Riky Mejía MD POINT OF CARE TESTING Final Result Performing Organization Address [facility] de Phone Number INTERFACE SYSTEM Refer to clinic/hospital department [facility] CLIA# [id number] [address] [place] [address] * (ABNORMAL) POC GLUCOSE (05/09/2008 12:20 PM ACID SUPERVISOR) GLUCOSE POC 123(H) 60 - 100 mg/dL [facility] Venous blood specimen (specimen) 05/09/2008 12:20 PM ACID SUPERVISOR 05/10/2008 3:50 AM ACID SUPERVISOR Riky Mejía MD POINT OF CARE TESTING Final Result Performing Organization Address [facility] de Phone Number INTERFACE SYSTEM Refer to clinic/hospital department [facility] CLIA# [id number] [address] [place] [address] * (ABNORMAL) POC GLUCOSE (05/09/2008 8:50 AM ACID SUPERVISOR) GLUCOSE POC 139(H) 60 - 100 mg/dL [facility] Venous blood specimen (specimen) 05/09/2008 8:50 AM ACID SUPERVISOR 05/10/2008 3:50 AM ACID SUPERVISOR Riky Mejía MD POINT OF CARE TESTING Final Result Performing Organization Address [facility] de Phone Number INTERFACE SYSTEM Refer to clinic/hospital department [facility] CLIA# [id number] [address] [place] [address] * (ABNORMAL) POC GLUCOSE (05/08/2008 8:06 PM CDT) GLUCOSE POC 115(H) 60 - 100 mg/dL [facility] COMMENT POC Recheck result [facility] Venous blood specimen (specimen) 05/08/2008 8:06 PM CDT 05/10/2008 7:16 AM ACID SUPERVISOR Riky Mejía MD POINT OF CARE TESTING Final Result Performing Organization Address [facility] de Phone Number INTERFACE SYSTEM Refer to clinic/hospital department [facility] CLIA# [id number] [address] [place] [address] * (ABNORMAL) POC GLUCOSE (05/08/2008 6:26 PM CDT) COMMENT POC Recheck result [facility] GLUCOSE POC 119(H) 60 - 100 mg/dL [facility] Venous blood specimen (specimen) 05/08/2008 6:26 PM CDT 05/10/2008 7:16 AM ACID SUPERVISOR Riky Mejía MD POINT OF CARE TESTING Final Result Performing Organization Address [facility] de Phone Number INTERFACE SYSTEM Refer to clinic/hospital department [facility] CLIA# [id number] [address] [place] [address] * (ABNORMAL) POC GLUCOSE (05/08/2008 12:27 PM CDT) [facility] GLUCOSE POC 130(H) 60 - 100 mg/dL [facility] Venous blood specimen (specimen) 05/08/2008 12:27 PM CDT 05/09/2008 1:13 AM CDT Riky Mejía MD POINT OF CARE TESTING Final Result Performing Organization Address [facility] Phone Number INTERFACE SYSTEM Refer to clinic/hospital department [facility] CLIA# [id number] [address] [place] [address] * (ABNORMAL) CBC WITH DIFFERENTIAL (05/08/2008 7:35 AM CDT) HEMOGLOBIN 8.0(L) 12.0 - 16.0 g/dL [facility] MONOCYTES 8.7 2.0 - 10.0 % [facility] RDW 18.5(H) 11.0 - 14.5 % [facility] MONOCYTE ABSOLUTE 0.7(H) 0.1 - 0.6 K/ul [facility] WBC 7.5 4.5 - 11.0 K/ul [facility] NEUTROPHILS 73.3 42.2 - 75.2 % [facility] MCH 29.7 27.0 - 34.0 pg [facility] NEUTROPHIL ABSOLUTE 5.5 2.0 - 8.0 K/ul [facility] HEMATOCRIT 25.8(L) 36.0 - 46.0 % [facility] PLATELETS 219 140 - 440 K/ul [facility] EOSINOPHIL ABSOLUTE 0.3 0.0 - 0.7 K/ul [facility] EOSINOPHILS 4.3 0.0 - 7.0 % [facility] RBC 2.69(L) 4.20 - 5.40 Mil/ul [facility] MCHC 31.0 30.0 - 35.0 g/dL [facility] LYMPHOCYTE ABSOLUTE 0.9(L) 1.2 - 4.0 K/ul [facility] LYMPHOCYTES 12.6(L) 24.0 - 44.0 % [facility] MCV 95.9 84.0 - 103.0 Fl [facility] BASOPHILS 1.1(H) 0.0 - 1.0 % [facility] MPV 10.6 8.9 - 12.8 Fl [facility] BASOPHILS ABSOLUTE 0.1 0.0 - 0.2 K/ul [facility] Blood specimen (specimen) 05/08/2008 7:35 AM CDT 05/08/2008 7:48 AM CDT us Riky Mejía MD HEMATOLOGY ORDERABLES Final Result INTERFACE SYSTEM Refer to clinic/hospital department [facility] CLIA# [id number] [facility] [place] [address] * (ABNORMAL) POC GLUCOSE (05/08/2008 5:15 AM CDT) GLUCOSE POC 132(H) 60 - 100 mg/dL [facility] Venous blood specimen (specimen) 05/08/2008 5:15 AM CDT 05/09/2008 1:13 AM CDT Riky Mejía MD POINT OF CARE TESTING Final Result Performing Organization Address [facility] de Phone Number INTERFACE SYSTEM Refer to clinic/hospital department [facility] CLIA# [id number] [address] [place] [address] * (ABNORMAL) POC GLUCOSE (05/07/2008 8:43 PM CDT) GLUCOSE POC 137(H) 60 - 100 mg/dL [facility] COMMENT POC Recheck result [facility] Venous blood specimen (specimen) 05/07/2008 8:43 PM CDT 05/10/2008 7:16 AM ACID SUPERVISOR Riky Mejía MD POINT OF CARE TESTING Final Result Performing Organization Address [facility] de Phone Number INTERFACE SYSTEM Refer to clinic/hospital department [facility] CLIA# [id number] [address] [place] [address] * (ABNORMAL) POC GLUCOSE (05/07/2008 5:13 PM CDT) GLUCOSE POC 137(H) 60 - 100 mg/dL [facility] COMMENT POC Recheck result [facility] Venous blood specimen (specimen) 05/07/2008 5:13 PM CDT 05/10/2008 7:16 AM ACID SUPERVISOR Riky Mejía MD POINT OF CARE TESTING Final Result Performing Organization Address [facility] de Phone Number INTERFACE SYSTEM Refer to clinic/hospital department [facility] CLIA# [id number] [address] [place] [address] * (ABNORMAL) POC GLUCOSE (05/07/2008 12:06 PM CDT) COMMENT POC Notify RN [facility] GLUCOSE POC 159(H) 60 - 100 mg/dL [facility] Venous blood specimen (specimen) 05/07/2008 12:06 PM CDT 05/08/2008 3:26 AM CDT Riky Mejía MD POINT OF CARE TESTING Final Result Performing Organization Address [facility] de Phone Number INTERFACE SYSTEM Refer to clinic/hospital department [facility] CLIA# [id number] [address] [place] [address] * (ABNORMAL) POC GLUCOSE (05/07/2008 8:20 AM CDT) GLUCOSE POC 135(H) 60 - 100 mg/dL [facility] COMMENT POC Notify R.N [facility] Venous blood specimen (specimen) 05/07/2008 8:20 AM CDT 05/08/2008 3:26 AM CDT Riky Mejía MD POINT OF CARE TESTING Final Result Performing Organization Address [facility] de Phone Number INTERFACE SYSTEM Refer to clinic/hospital department [facility] CLIA# [id number] [address] [place] [address] * (ABNORMAL) POC GLUCOSE (05/07/2008 5:22 AM CDT) GLUCOSE POC 133(H) 60 - 100 mg/dL [facility] Venous blood specimen (specimen) 05/07/2008 5:22 AM CDT 05/08/2008 3:25 AM CDT us Riky Mejía MD POINT OF CARE TESTING Final Result Performing Organization Address [facility] de Phone Number INTERFACE SYSTEM Refer to clinic/hospital department [facility] CLIA# [id number] [address] [place] [address] * (ABNORMAL) POC GLUCOSE (05/06/2008 8:39 PM CDT) GLUCOSE POC 116(H) 60 - 100 mg/dL [facility] COMMENT POC Notify R.N [facility] Venous blood specimen (specimen) 05/06/2008 8:39 PM CDT 05/07/2008 3:27 AM CDT us Riky Mejía MD POINT OF CARE TESTING Final Result INTERFACE SYSTEM Refer to clinic/hospital department [facility] CLIA# [id number] [address] [place] [address] * CT ABDOMEN PELVIS W CONTRAST (05/06/2008 [...] By: Heriberto Estrella M.D. Date Signed: 05/06/08 Procedure Note Heriberto Estrella W - 05/06/2008 Axial images were obtained [...] GLUCOSE POC 126(H) 60 - 100 mg/dL [facility] Venous blood specimen (specimen) 05/06/2008 5:38 PM CDT 05/07/2008 3:27 AM CDT Riky Mejía MD POINT OF CARE TESTING Final Result Performing Organization Address [facility] de Phone Number INTERFACE SYSTEM Refer to clinic/hospital department [facility] CLIA# [id number] [address] [place] [address] * (ABNORMAL) POC GLUCOSE (05/06/2008 12:55 PM CDT) GLUCOSE POC 120(H) 60 - 100 mg/dL [facility] Venous blood specimen (specimen) 05/06/2008 12:55 PM CDT 05/07/2008 3:27 AM CDT Riky Mejía MD POINT OF CARE TESTING Final Result Performing Organization Address [facility] Phone Number INTERFACE SYSTEM Refer to clinic/hospital department [facility] CLIA# [id number] [address] [place] [address] * (ABNORMAL) POC GLUCOSE (05/06/2008 8:03 AM CDT) GLUCOSE POC 134(H) 60 - 100 mg/dL [facility] Venous blood specimen (specimen) 05/06/2008 8:03 AM CDT 05/07/2008 3:24 AM CDT Riky Mejía MD POINT OF CARE TESTING Final Result Performing Organization Address [facility] de Phone Number INTERFACE SYSTEM Refer to clinic/hospital [facility] CLIA# [id number] [address] [place] [address] * (ABNORMAL) BASIC METABOLIC PANEL (05/06/2008 5:34 AM CDT) CREATININE 0.5(L) 0.7 - 1.2 mg/dL [facility] CALCIUM 8.1(L) 8.4 - 10.5 mg/dL [facility] GLUCOSE 111(H) 70 - 110 mg/dL [facility] CHLORIDE 107 95 - 110 mEq/L [facility] ANION GAP 11 9 - 20 mEq/L [facility] SODIUM 137 136 - 145 mEq/L [facility] BUN 10 7 - 17 mg/dL [facility] CO2 23 22 - 32 mmol/l [facility] POTASSIUM 3.7 3.5 - 5.0 mEq/L [facility] OSMOLALITY, CALCULATED 281 275 - 295 mOsm/Kg [facility] Blood specimen (specimen) 05/06/2008 5:34 AM CDT 05/06/2008 5:34 AM CDT us Riky Mejía MD CHEMISTRY ORDERABLES Final Result INTERFACE SYSTEM Refer to clinic/hospital department [facility] CLIA# [id number] [address] [place] [address] * (ABNORMAL) CBC WITH DIFFERENTIAL (05/06/2008 5:34 AM CDT) LYMPHOCYTES 11.5(L) 24.0 - 44.0 % [facility] MCHC 30.9 30.0 - 35.0 g/dL [facility] LYMPHOCYTE ABSOLUTE 0.9(L) 1.2 - 4.0 K/ul [facility] MCV 96.3 84.0 - 103.0 Fl [facility] MPV 11.1 8.9 - 12.8 Fl [facility] BASOPHILS ABSOLUTE 0.0 0.0 - 0.2 K/ul [facility] BASOPHILS 0.4 0.0 - 1.0 % [facility] HEMOGLOBIN 8.0(L) 12.0 - 16.0 g/dL [facility] RDW 18.5(H) 11.0 - 14.5 % [facility] MONOCYTE ABSOLUTE 0.7(H) 0.1 - 0.6 K/ul [facility] MONOCYTES 9.2 2.0 - 10.0 % [facility] WBC 7.7 4.5 - 11.0 K/ul [facility] MCH 29.7 27.0 - 34.0 pg [facility] NEUTROPHIL ABSOLUTE 5.8 2.0 - 8.0 K/ul [facility] NEUTROPHILS 75.3(H) 42.2 - 75.2 % [facility] HEMATOCRIT 25.9(L) 36.0 - 46.0 % [facility] EOSINOPHILS 3.6 0.0 - 7.0 % [facility] PLATELETS 203 140 - 440 K/ul [facility] PERIPHERAL BLOOD SMEAR REVIEW Automated Diff [facility] EOSINOPHIL ABSOLUTE 0.3 0.0 - 0.7 K/ul [facility] RBC 2.69(L) 4.20 - 5.40 Mil/ul [facility] Blood specimen (specimen) 05/06/2008 5:34 AM CDT 05/06/2008 5:34 AM CDT us Riky Mejía MD HEMATOLOGY ORDERABLES Final Result Performing Organization Address City/[facility] de Phone Number INTERFACE SYSTEM Refer to clinic/hospital department [facility] CLIA# [id number] [place] [id number] * (ABNORMAL) POC GLUCOSE (05/05/2008 8:26 PM CDT) GLUCOSE POC 157(H) 60 - 100 mg/dL [facility] Venous blood specimen (specimen) 05/05/2008 8:26 PM CDT 05/06/2008 3:31 AM CDT us Riky Mejía MD POINT OF CARE TESTING Final Result Performing Organization Address City/[facility] de Phone Number INTERFACE SYSTEM Refer to clinic/hospital department [facility] CLIA# [id number] [address] [place] [address] * (ABNORMAL) POC GLUCOSE (05/05/2008 4:57 PM CDT) GLUCOSE POC 124(H) 60 - 100 mg/dL [facility] Venous blood specimen (specimen) 05/05/2008 4:57 PM CDT 05/06/2008 3:31 AM CDT Riky Mejía MD POINT OF CARE TESTING Final Result Performing Organization Address [facility] de Phone Number INTERFACE SYSTEM Refer to clinic/hospital department [facility] CLIA# [id number] [address] [place] [address] * (ABNORMAL) POC GLUCOSE (05/05/2008 11:30 AM CDT) GLUCOSE POC 127(H) 60 - 100 mg/dL [facility] Venous blood specimen (specimen) 05/05/2008 11:30 AM CDT 05/06/2008 3:31 AM CDT Riky Mejía MD POINT OF CARE TESTING Final Result Performing Organization Address [facility] de Phone Number INTERFACE SYSTEM Refer to clinic/hospital department [facility] CLIA# [id number] [address] [place] [address] * (ABNORMAL) POC GLUCOSE (05/05/2008 8:05 AM CDT) GLUCOSE POC 137(H) 60 - 100 mg/dL [facility] Venous blood specimen (specimen) 05/05/2008 8:05 AM CDT 05/06/2008 3:31 AM CDT Riky Mejía MD POINT OF CARE TESTING Final Result Performing Organization Address City/[facility] de Phone Number INTERFACE SYSTEM Refer to clinic/hospital department [facility] CLIA# [id number] [address] [place] [address] * (ABNORMAL) POC GLUCOSE (05/04/2008 9:56 PM CDT) GLUCOSE POC 115(H) 60 - 100 mg/dL [facility] Venous blood specimen (specimen) 05/04/2008 9:56 PM CDT 05/05/2008 2:27 AM CDT Riky Mejía MD POINT OF CARE TESTING Final Result Performing Organization Address [facility] de Phone Number INTERFACE SYSTEM Refer to clinic/hospital department [facility] CLIA# [id number] [address] [place] [address] * (ABNORMAL) POC GLUCOSE (05/04/2008 5:34 PM CDT) GLUCOSE POC 120(H) 60 - 100 mg/dL [facility] Venous blood specimen (specimen) 05/04/2008 5:34 PM CDT 05/05/2008 5:02 AM CDT Riky Mejía MD POINT OF CARE TESTING Final Result Performing Organization Address [facility] de Phone Number INTERFACE SYSTEM Refer to clinic/hospital department [facility] CLIA# [id number] [address] [place] [address] * (ABNORMAL) POC GLUCOSE (05/04/2008 11:15 AM CDT) GLUCOSE POC 133(H) 60 - 100 mg/dL [facility] Venous blood specimen (specimen) 05/04/2008 11:15 AM CDT 05/05/2008 2:27 AM CDT Riky Mejía MD POINT OF CARE TESTING Final Result Performing Organization Address City/[facility] Co de Phone Number INTERFACE SYSTEM Refer to clinic/hospital department [facility] CLIA# [id number] [address] [place] [address] * URINE CULTURE (05/04/2008 9:06 AM CDT) FINAL REPORT No growth INTERFA CE SYSTEM 05/04/2008 9:06 AM CDT 05/04/2008 9:06 AM CDT us Riky Mejía MD [facility] Final Result Performing Organization Address [facility] Phone Number INTERFACE SYSTEM Refer to clinic/hospital department * (ABNORMAL) POC GLUCOSE (05/04/2008 7:37 AM CDT) GLUCOSE POC 139(H) 60 - 100 mg/dL [facility] Venous blood specimen (specimen) 05/04/2008 7:37 AM CDT 05/05/2008 2:27 AM CDT us Riky Mejía MD POINT OF CARE TESTING Final Result Performing Organization Address [facility] Phone Number INTERFACE SYSTEM Refer to clinic/hospital department [facility] CLIA# [id number] [address] [place], [place] [address] * (ABNORMAL) URINALYSIS MICROSCOPY ONLY (05/04/2008 2:12 AM CDT) HYALINE CAST None Seen 0 - 2 [facility] WBC URINE 0-2 0 - 2 [facility] BACTERIA UA Small(A) None Seen [facility] RBC UA 6-10(A) 0 - 2 [facility] Urine specimen (specimen) 05/04/2008 2:12 AM CDT 05/04/2008 2:12 AM CDT Narrative INTERFACE SYSTEM - 05/04/2008 2:30 AM CDT Microscopic ordered by policy us Riky Mejía MD URINE ORDERABLES Final Resu lt Performing Organization Address [facility] Phone Number INTERFACE SYSTEM Refer to clinic/hospital department [facility] CLIA# [id number] [address] [place] [address] * ICTOTEST (05/04/2008 2:12 AM CDT) Pathologist [facility] ICTO Negative Negative [facility] Urine specimen (specimen) 05/04/2008 2:12 AM CDT 05/04/2008 2:12 AM CDT Narrative INTERFACE SYSTEM - 05/04/2008 2:30 AM CDT Bili verified by ictotest us Riky Mejía MD URINE ORDERABLES Final Resu lt Performing Organization Address [facility] de Phone Number INTERFACE SYSTEM Refer to clinic/hospital department [facility] CLIA# [id number] [address] [place] [address] * (ABNORMAL) URINALYSIS (05/04/2008 2:12 AM CDT) Pathologist [facility] LEUKOCYTE ESTERASE UA NEGATIVE NEGATIVE [facility] KETONES UA Trace(A) NEGATIVE [facility] COLOR UA Yellow Straw [facility] PROTEIN UA 100 mg/dl(A) NEGATIVE [facility] SPECIFIC GRAVITY UA 1.010 <=1.005 [facility] NITRITE UA NEGATIVE NEGATIVE [facility] UROBILINOGEN UA 0.2 0.2 [facility] CLARITY UA Clear Clear [facility] GLUCOSE UA NEGATIVE NEGATIVE [facility] MICRO EXAM Yes(A) No [facility] PH UA 6.5 5.0 - 9.0 [facility] BLOOD UA MODERATE(A) NEGATIVE [facility] Urine specimen (specimen) 05/04/2008 2:12 AM CDT 05/04/2008 2:12 AM CDT us Riky Mejía MD URINE ORDERABLES Final Resu lt Performing Organization Address [facility] de Phone Number INTERFACE SYSTEM Refer to clinic/hospital department [facility] CLIA# [id number] [address] [place] [address] * BLOOD CULTURE (05/04/2008 2:02 AM CDT) Pathologist [facility] FINAL REPORT No growth INTERFA CE SYSTEM Blood specimen (specimen) 05/04/2008 2:02 AM CDT 05/04/2008 3:36 AM CDT us Riky Mejía MD [facility] Final Result Performing Organization Address [facility] Phone Number INTERFACE SYSTEM Refer to clinic/hospital department * (ABNORMAL) BASIC METABOLIC PANEL (05/04/2008 1:55 AM CDT) Pathologist [facility] OSMOLALITY, CALCULATED 282 275 - 295 mOsm/Kg [facility] POTASSIUM 4.3 3.5 - 5.0 mEq/L [facility] CREATININE 0.6(L) 0.7 - 1.2 mg/dL [facility] CALCIUM 9.0 8.4 - 10.5 mg/dL [facility] GLUCOSE 120(H) 70 - 110 mg/dL [facility] CHLORIDE 108 95 - 110 mEq/L [facility] SODIUM 135(L) 136 - 145 mEq/L [facility] ANION GAP 10 9 - 20 mEq/L [facility] BUN 17 7 - 17 mg/dL [facility] CO2 21(L) 22 - 32 mmol/l [facility] Blood specimen (specimen) 05/04/2008 1:55 AM CDT 05/04/2008 2:49 AM CDT us Riky Mejía MD CHEMISTRY ORDERABLES Final Result Performing Organization Address [facility] de Phone Number INTERFACE SYSTEM Refer to clinic/hospital department [facility] CLIA# [id number] [address] [place] [address] * (ABNORMAL) CBC WITH DIFFERENTIAL (05/04/2008 1:55 AM CDT) PERIPHERAL BLOOD SMEAR REVIEW Automated Diff [facility] EOSINOPHIL ABSOLUTE 0.2 0.0 - 0.7 K/ul [facility] RBC 2.86(L) 4.20 - 5.40 Mil/ul [facility] MCHC 31.6 30.0 - 35.0 g/dL [facility] LYMPHOCYTES 11.5(L) 24.0 - 44.0 % [facility] LYMPHOCYTE ABSOLUTE 1.0(L) 1.2 - 4.0 K/ul [facility] MCV 96.2 84.0 - 103.0 Fl [facility] MPV 11.1 8.9 - 12.8 Fl [facility] BASOPHILS ABSOLUTE 0.0 0.0 - 0.2 K/ul [facility] BASOPHILS 0.4 0.0 - 1.0 % [facility] HEMOGLOBIN 8.7(L) 12.0 - 16.0 g/dL [facility] RDW 18.6(H) 11.0 - 14.5 % [facility] MONOCYTE ABSOLUTE 1.0(H) 0.1 - 0.6 K/ul [facility] MONOCYTES 10.9(H) 2.0 - 10.0 % [facility] WBC 8.9 4.5 - 11.0 K/ul [facility] NEUTROPHILS 75.1 42.2 - 75.2 % [facility] MCH 30.4 27.0 - 34.0 pg [facility] NEUTROPHIL ABSOLUTE 6.7 2.0 - 8.0 K/ul [facility] HEMATOCRIT 27.5(L) 36.0 - 46.0 % [facility] PLATELETS 180 140 - 440 K/ul [facility] EOSINOPHILS 2.1 0.0 - 7.0 % [facility] Blood specimen (specimen) 05/04/2008 1:55 AM CDT 05/04/2008 2:25 AM CDT us Riky Mejía MD HEMATOLOGY ORDERABLES Final Result Performing Organization Address [facility] de Phone Number INTERFACE SYSTEM Refer to clinic/hospital department [facility] CLIA# [id number] [address] [place] [address] * BLOOD CULTURE (05/04/2008 1:55 AM CDT) FINAL REPORT No growth INTERFA CE SYSTEM REPORT/SPECIM EN COMMENT Specimen processed with suboptimal blood volume. Recommended adult blood volume is 8-10 mL per bottle. INTERFACE SYSTEM Blood specimen (specimen) 05/04/2008 1:55 AM CDT 05/04/2008 3:36 AM CDT us Riky Mejía MD [facility]CROBIOLOGY - [facility] Final Result Performing Organization Address [facility] Phone Number INTERFACE SYSTEM Refer to clinic/hospital department * (ABNORMAL) POC GLUCOSE (05/03/2008 9:24 PM CDT) GLUCOSE POC 137(H) 60 - 100 mg/dL [facility] Venous blood specimen (specimen) 05/03/2008 9:24 PM CDT 05/04/2008 4:27 AM CDT us Riky Mejía MD POINT OF CARE TESTING Final Result Performing Organization Address [facility] Phone Number INTERFACE SYSTEM Refer to clinic/hospital department [facility] CLIA# [id number] [facility] [place] [address] * (ABNORMAL) POC GLUCOSE (05/03/2008 4:35 PM CDT) GLUCOSE POC 128(H) 60 - 100 mg/dL [facility] Venous blood specimen (specimen) 05/03/2008 4:35 PM CDT 05/04/2008 4:27 AM CDT us Riky Mejía MD POINT OF CARE TESTING Final Result INTERFACE SYSTEM Refer to clinic/hospital department [facility] CLIA# [id number] [place] [address] * CT ABDOMEN PELVIS W CONTRAST (05/03/2008 [...] By: Erica Mercedes M.D. Date Signed: 05/04/08 Procedure Note Cordelia Mercedes - 05/04/2008 Exam: CT Abdomen, Pelvis, w/contrast Date/Time of Exam: May 03, 2008 3:02:55 PM History: Please see order comments. Technique: 5 mm volumetric acquisition with 125 mL intravenous [id number]. Comparison: None. Findings: Consolidative atelectasis versus airspace [...] Kelly Ramos M.D. Date Signed: 05/05/08 YAMILET Procedure [...] APTT (05/03/2008 9:00 AM CDT) INR 1.3 [facility] Comment: Expected Values for INR: DVT/PE Goal INR 2.5; range 2.0 - 3.0 Valve Replacement Tissue Goal INR 2.5; range 2.0 - 3.0 Mechanical Goal INR 3.0; range 2.5 - 3.5 POST-NJ Goal INR 2.5; range 2.0 - 3.0 or Goal 3.0; range 2.5 - 3.5 Atrial Fibrillation Goal INR 2.5; range 2.0 - 3.0 Ischemic Stroke Goal INR 2.5; range 2.0 - 3.0 For additional information see Guidelines for Anticoagulation available from the pharmacy [facility]. [phone] PTT 38.5(H) 22.5 - 36.5 Secs [facility] Comment: Therapeutic Range: Hi-level PE/DVT heparin protocol 80.1 -95.0 sec Lo-level PE/DVT heparin protocol 67.1 - 80.0 sec Cardiac Heparin Protocol 67.1 - 85.0 sec Neuro Heparin Protocol 67.1 - 80.0 sec As of 09/25/2007 note change in APTT Normal Range. PROTIME 18.0(H) 12.8 - 15.8 Secs [facility] Comment:As of 2007 not e change in normal range. Blood specimen (specimen) 05/03/2008 9:00 AM CDT 05/03/2008 9:10 AM CDT Narrative INTERFACE SYSTEM - 05/03/2008 9:23 AM CDT use blood in the lab us Riky Mejía MD HEMATOLOGY ORDERABLES Edite d INTERFACE SYSTEM Refer to clinic/hospital department [facility] CLIA# [id number] [address] [place] [address] * (ABNORMAL) BASIC METABOLIC PANEL (05/03/2008 5:39 AM CDT) GLUCOSE 122(H) 70 - 110 mg/dL [facility] CHLORIDE 106 95 - 110 mEq/L [facility] SODIUM 135(L) 136 - 145 mEq/L [facility] ANION GAP 14 9 - 20 mEq/L [facility] BUN 20(H) 7 - 17 mg/dL [facility] CO2 20(L) 22 - 32 mmol/l [facility] OSMOLALITY, CALCULATED 284 275 - 295 mOsm/Kg [facility] POTASSIUM 5.0 3.5 - 5.0 mEq/L [facility] CREATININE 0.6(L) 0.7 - 1.2 mg/dL [facility] CALCIUM 9.1 8.4 - 10.5 mg/dL [facility] Blood specimen (specimen) 05/03/2008 5:39 AM CDT 05/03/2008 6:15 AM CDT us Riky Mejía MD CHEMISTRY ORDERABLES Final Result INTERFACE SYSTEM Refer to clinic/hospital department [facility] CLIA# [id number] [address] [place] [address] * (ABNORMAL) CBC WITH DIFFERENTIAL (05/03/2008 5:39 AM CDT) HEMATOCRIT 28.4(L) 36.0 - 46.0 % [facility] LYMPHOCYTE ABSOLUTE 0.6(L) 1.2 - 4.0 K/ul [facility] LYMPHOCYTES 5.9(L) 24.0 - 44.0 % [facility] MCHC 31.3 30.0 - 35.0 g/dL [facility] BASOPHILS 0.2 0.0 - 1.0 % [facility] MPV 10.9 8.9 - 12.8 Fl [facility] WBC 10.2 4.5 - 11.0 K/ul [facility] BASOPHILS ABSOLUTE 0.0 0.0 - 0.2 K/ul [facility] PERIPHERAL BLOOD SMEAR REVIEW Automated Diff [facility] MCV 96.3 84.0 - 103.0 Fl [facility] MONOCYTES 9.9 2.0 - 10.0 % [facility] RDW 18.3(H) 11.0 - 14.5 % [facility] MONOCYTE ABSOLUTE 1.0(H) 0.1 - 0.6 K/ul [facility] RBC 2.95(L) 4.20 - 5.40 Mil/ul [facility] HEMOGLOBIN 8.9(L) 12.0 - 16.0 g/dL [facility] NEUTROPHILS 82.5(H) 42.2 - 75.2 % [facility] NEUTROPHIL ABSOLUTE 8.5(H) 2.0 - 8.0 K/ul [facility] MCH 30.2 27.0 - 34.0 pg [facility] PLATELETS 163 140 - 440 K/ul [facility] EOSINOPHIL ABSOLUTE 0.2 0.0 - 0.7 K/ul [facility] EOSINOPHILS 1.5 0.0 - 7.0 % [facility] Blood specimen (specimen) 05/03/2008 5:39 AM CDT 05/03/2008 6:15 AM CDT Riky Mejía MD HEMATOLOGY ORDERABLES Final Result Performing Organization Address City/[facility]/ZIP Co de Phone Number INTERFACE SYSTEM Refer to clinic/hospital department [facility] CLIA# [id number] [address] [place] [address] * URINE CULTURE (05/02/2008 10:05 PM CDT) FINAL REPORT No growth INTERFA CE SYSTEM 05/02/2008 10:0 5 PM CDT 05/02/2008 10:05 PM CDT Riky Mejía MD [facility]OLOGY - [facility] Final Result Performing Organization Address [facility] de Phone Number INTERFACE SYSTEM Refer to clinic/hospital department * (ABNORMAL) URINALYSIS MICROSCOPY ONLY (05/02/2008 9:19 PM CDT) BACTERIA UA Few(A) None Seen [facility] WBC URINE 3-5(A) 0 - 2 [facility] RBC UA 0-2 0 - 2 [facility] HYALINE CAST 0-2 0 - 2 [facility] Urine specimen (specimen) 05/02/2008 9:19 PM CDT 05/02/2008 9:19 PM CDT Narrative INTERFACE SYSTEM - 05/02/2008 9:43 PM CDT Microscopic ordered by policy Riky Mejía MD URINE ORDERABLES Final Resu lt Performing Organization Address [facility] de Phone Number INTERFACE SYSTEM Refer to clinic/hospital department [facility] CLIA# [id number] [address] [place] [address] * (ABNORMAL) ICTOTEST (05/02/2008 9:19 PM CDT) ICTO Positive(A) Negative [facility] Urine specimen (specimen) 05/02/2008 9:19 PM CDT 05/02/2008 9:19 PM CDT Narrative INTERFACE SYSTEM - 05/02/2008 9:43 PM CDT Bili verified by ictotest us Riky Mejía MD URINE ORDERABLES Final Resu lt Performing Organization Address [facility] Phone Number INTERFACE SYSTEM Refer to clinic/hospital department [facility] CLIA# [id number] [address] [place] [address] * (ABNORMAL) URINALYSIS (05/02/2008 9:19 PM CDT) CLARITY UA Clear Clear [facility] MICRO EXAM Yes(A) No [facility] GLUCOSE UA NEGATIVE NEGATIVE [facility] PH UA 5.5 5.0 - 9.0 [facility] BLOOD UA NEGATIVE NEGATIVE [facility] LEUKOCYTE ESTERASE UA NEGATIVE NEGATIVE [facility] KETONES UA Trace(A) NEGATIVE [facility] COLOR UA Yellow Straw [facility] PROTEIN UA 100 mg/dl(A) NEGATIVE [facility] SPECIFIC GRAVITY UA >=1.030(A) <=1.005 [facility] NITRITE UA POSITIVE(A) NEGATIVE [facility] UROBILINOGEN UA 0.2 0.2 [facility] Urine specimen (specimen) 05/02/2008 9:19 PM CDT 05/02/2008 9:19 PM CDT Riky Mejía MD URINE ORDERABLES Final Resu lt Performing Organization Address [facility] Phone Number INTERFACE SYSTEM Refer to clinic/hospital department [facility] CLIA# [id number] [address] [place] [address] * (ABNORMAL) BASIC METABOLIC PANEL (05/02/2008 6:50 PM CDT) BUN 22(H) 7 - 17 mg/dL [facility] CO2 23 22 - 32 mmol/l [facility] POTASSIUM 5.3(H) 3.5 - 5.0 mEq/L [facility] Comment: Specimen slightly hemolyzed OSMOLALITY, CALCULATED 278 275 - 295 mOsm/Kg [facility] CREATININE 0.7 0.7 - 1.2 mg/dL [facility] CALCIUM 9.2 8.4 - 10.5 mg/dL [facility] GLUCOSE 124(H) 70 - 110 mg/dL [facility] CHLORIDE 101 95 - 110 mEq/L [facility] ANION GAP 12 9 - 20 mEq/L [facility] SODIUM 131(L) 136 - 145 mEq/L [facility] Blood specimen (specimen) 05/02/2008 6:50 PM CDT 05/02/2008 7:01 PM CDT us Riky Mejía MD CHEMISTRY ORDERABLES Final Result Performing Organization Address [facility] de Phone Number INTERFACE SYSTEM Refer to clinic/hospital department [facility] CLIA# [id number] [address] [place] [address] * (ABNORMAL) BASIC METABOLIC PANEL (05/02/2008 8:38 AM CDT) OSMOLALITY, CALCULATED 280 275 - 295 mOsm/Kg [facility] CREATININE 0.8 0.7 - 1.2 mg/dL [facility] CALCIUM 9.5 8.4 - 10.5 mg/dL [facility] GLUCOSE 123(H) 70 - 110 mg/dL [facility] CHLORIDE 100 95 - 110 mEq/L [facility] ANION GAP 13 9 - 20 mEq/L [facility] SODIUM 131(L) 136 - 145 mEq/L [facility] BUN 26(H) 7 - 17 mg/dL [facility] CO2 24 22 - 32 mmol/l [facility] POTASSIUM 5.5(H) 3.5 - 5.0 mEq/L [facility] Blood specimen (specimen) 05/02/2008 8:38 AM CDT 05/02/2008 8:43 AM CDT Riky Mejía MD CHEMISTRY ORDERABLES Final Result INTERFACE SYSTEM Refer to clinic/hospital department [facility] CLIA# [id number] [address] [place] [address] * (ABNORMAL) CBC WITH DIFFERENTIAL (05/02/2008 6:55 AM CDT) LYMPHOCYTE ABSOLUTE 1.4 1.2 - 4.0 K/ul [facility] MCV 95.8 84.0 - 103.0 Fl [facility] MPV 11.2 8.9 - 12.8 Fl [facility] BASOPHILS ABSOLUTE 0.1 0.0 - 0.2 K/ul [facility] BASOPHILS 0.4 0.0 - 1.0 % [facility] HEMOGLOBIN 10.8(L) 12.0 - 16.0 g/dL [facility] RDW 18.3(H) 11.0 - 14.5 % [facility] MONOCYTE ABSOLUTE 1.5(H) 0.1 - 0.6 K/ul [facility] MONOCYTES 11.3(H) 2.0 - 10.0 % [facility] WBC 13.0(H) 4.5 - 11.0 K/ul [facility] MCH 30.3 27.0 - 34.0 pg [facility] NEUTROPHIL ABSOLUTE 10.0(H) 2.0 - 8.0 K/ul [facility] NEUTROPHILS 76.9(H) 42.2 - 75.2 % [facility] HEMATOCRIT 34.2(L) 36.0 - 46.0 % [facility] EOSINOPHILS 0.8 0.0 - 7.0 % [facility] PLATELETS 164 140 - 440 K/ul [facility] PERIPHERAL BLOOD SMEAR REVIEW Automated Diff [facility] EOSINOPHIL ABSOLUTE 0.1 0.0 - 0.7 K/ul [facility] RBC 3.57(L) 4.20 - 5.40 Mil/ul [facility] LYMPHOCYTES 10.6(L) 24.0 - 44.0 % [facility] MCHC 31.6 30.0 - 35.0 g/dL [facility] Blood specimen (specimen) 05/02/2008 6:55 AM CDT 05/02/2008 7:02 AM CDT us Riky Mejía MD HEMATOLOGY ORDERABLES Final Result Performing Organization Address City/State/[facility] Co de Phone Number INTERFACE SYSTEM Refer to clinic/hospital department [facility] CLIA# [id number] [address] [place] [id number] documented in this encounter Visit Diagnoses Diagnosis Pressure ulcer, buttock(707.05) Pressure ulcer, buttock Pressure ulcer, lower back(707.03) Pressure ulcer, lower back Paraplegia (CMS/HCC) Paraplegia Pulmonary collapse Body mass index 40 and over, adult Body Mass Index 40 and over, adult Morbid obesity (CMS/HCC) Morbid obesity Colostomy status (CMS/HCC) Colostomy status Personal history of venous thrombosis and embolism Nausea alone Esophageal reflux Fever, unspecified Debility, unspecified Pressure ulcer, stage II(707.22) ([facility]/HCC) Pressure ulcer, stage II Perforation of intestine (CMS/HCC) Perforation of intestine Unspecified procedure as the cause of abnormal reaction of patient, or of later complication, without mention of misadventure at time of procedure Peritoneal abscess (CMS/HCC) Peritoneal abscess Unspecified protein-calorie malnutrition Pressure ulcer, stage IV(707.24) (CMS/HCC) Pressure ulcer, stage IV Pressure ulcer, upper back(707.02) Pressure ulcer, upper back Pressure ulcer, stage III(707.23) ([facility]/HCC) Pressure ulcer, stage III Removal of other organ (partial) (total) causing abnormal patient reaction, or later complication, without mention of misadventure at time of operation documented in this encounter Additional Health Concerns Infection Onset Date Last Indicated Resolved Time MRSA Comment:Kapil 10/26/15 10/27/2015 10/27/2015 documented as of this encounter Care Teams Hose Mender Relationship Specialty Start Date End Date Jose Bowers MD [address] [place] [address] PCP - General 12/31/05 documented as of this encounter
--- OUTSIDE RECORDS SUMMARY | 2025-02-05 05:02 | XMS_ITS | Encounter Summary ---
Author Organization [facility] Address [address] [place] [address] Care Team Providers Care School Superintendent Name Role Phone Jose Bowers MD Primary Care Provider Unavailab le Encounter Details Date Type Department Care Team (Late st Contact Info) Description 02/14/2006 Outpatient Historical [facility] Physical Med and Rehab- [place] [address] [place] [phone] Jose Bowers MD [address] [place] [address] Paraplegia (CMS/HCC) (Primary Dx) Social History Tobacco Use Types Packs/Day Years Used Date Smoking Tobacco: Never Assessed Comments Unknown Sex and Gender Information Value Date Recorded Sex Assigned at Not on file 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
--- OUTSIDE RECORDS SUMMARY | 2025-02-05 05:02 | XMS_ITS | Patient Health Record ---
Author Organization [facility] Address [address] [place] [address] Care Team Providers Care Roustabout Hand Name Role Phone Aris Tavarez Primary Care Provider Unavailab Ari Leal Unavailable [phone] Allergies Allergen (clinical drug ingredient) Drug/Non Drug [...] End Date Status Warfarin Sodium 5 MG Tablet 1 tablet Orally Once a day Active Cefdinir 300 MG Capsule as directed Orally BID [facility] Active Baclofen 20 MG Tablet 1 tablet Administe r without regards to meals as needed Orally Twice a day Active Vitamin C 1000 MG Tablet 1 tablet Orally Once a day Active Potassium Chloride ER 10 MEQ Tablet Extended Release 1 tablet with food Orally Twice a day Active Omeprazole 40 MG Capsule Delayed Release 1 capsule 30 minutes before morning meal Orally Once a day Active Gabapentin 600 MG Tablet 1 tablet Orally Once a day Active Methenamine Hippurate 1 GM Tablet 1 tablet Orally Twice a day Active Furosemide 20 MG Tablet 1 tablet Orally Once a day Active Venlafaxine HCl ER 150 MG Tablet Extended Release 24 Hour 1 tablet with food Orally Once a day Active Cipro 500 MG Tablet 1 tablet Orally ever y 12 hrs Not-Taking Social History Tobacco Use: Social History Observation Description Date Details (start date - stop date) Never Smoker NA - NA Social History Tobacco Use: Social Info Question Answer Notes xTobacco Use/Smoking Are you a nonsmoker Problems Problem Type SNOMED Code ICD Code Onset Dates Problem Status W/U Status Risk Notes Problem Neurogenic bladder (574176598) Neurogenic bladder (N31.9) Active confirmed Problem Suprapubic urinary catheter in situ (finding) (930312864) Chronic suprapubic catheter (Z93.59) Active confirmed Plan Of Treatment Future Test Test Name Order Date Renal w/[id number] 11/06/2023 Abdomen [id number] 11/06/2023 Insurance Providers Payer Name Payer Address Payer Phone Subscriber Number Group Number Insured Name Patient Relationship to Insured Coverage Start Date Coverage End Date [facility] Medicare Advantage PPO [address] [address] [place] [address] [id number] Jami Gandhi Self - patient is the insured [place] Medicaid [address] [place] [address] [id number] [phone] [id number] Jami Gandhi Self - patient is the insured Medications Administered Medication Instructions Date of Administration Dosage Notes cefTRIAXone Sodium 01/23/2023 [address] [facility] [phone] [id number] Medical (General) History Medical History History ICD Code Mumps Chicken Pox Pneumonia Bladder Infections Glaucoma Hernia Blood/Plasma Tranfusion chronic bladder infections osteomylitis chronic venous insufficiency of lower ex tremity colostomy HX DVT neurogenic bladder parapleglia Surgical History Surgery Date(Month/Year) Hysterectomy 2004 Spinal Surgery x2 T-4 Paraplegic 2005 Ovarian Cyst 2008 Abdominal Surgery 2008 Right Lower Leg 2018 Vena Cava Filter for Blood Clots 07/2004 Osteomyelitis 2020 Hospitalization History Reason Date(Month/Year) See Surgical list
--- OUTSIDE RECORDS SUMMARY | 2025-02-05 05:02 | XMS_ITS | Encounter Summary ---
Author Organization [facility] Address [address] [place] [address] Care Team Providers Care Fur Tinter Name Role Phone Jose Bowers MD Primary Care Provider Unavailab le Encounter Details Date Type Department Care Team (Late st Contact Info) Description 10/01/2005 Outpatient Historical [facility] Physical Med and Rehab- [place] [address] [place] [phone] Jose Bowers MD [address] [place] [address] Paraplegia (CMS/HCC) (Primary Dx); Neurogenic Bladder, NOS Social History Tobacco Use Types Packs/Day Years Used Date Smoking Tobacco: Never Assessed Comments Unknown Sex and Gender Information Value Date Recorded Sex Assigned at Not on file 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
--- OUTSIDE RECORDS SUMMARY | 2025-02-05 05:02 | XMS_ITS | Encounter Summary ---
Author Organization [facility] Address [address] [place] [address] Care Team Providers Care Lease Buyer Name Role Phone Jose Bowers MD Primary Care Provider Unavailab le Encounter Details Date Type Department Care Team (Late st Contact Info) Description 08/30/2006 Outpatient Historical [facility] Physical Med and Rehab- [place] [address] [place] [phone] Jose Bowers MD [address] [place] [address] Pain in Joint, Pelvic Region and Thigh (Primary Dx); Pain in Limb; Paraplegia (CMS/HCC) Social History Tobacco Use Types Packs/Day Years Used Date Smoking Tobacco: Never Assessed Comments Unknown Sex and Gender Information Value Date Recorded Sex Assigned at Not on file Legal Sex Female 6:28 AM MANAGER GENERATION Gender Identity Not on file Sexual Orientation Not on file documented as of this encounter Plan of Treatment Not on file documented as of this encounter Procedures Procedure Name Priority Date/Time Associated Diagnosis Comments XR PELVIS 3+ VW Routine 08/30/2006 12:33 PM MANAGER GENERATION documented in this encounter Results * XR PELVIS 3+ VW (08/30/2006 12:33 PM MANAGER GENERATION) Anatomical Region Laterality Modality Pelvis Other 08/30/2006 12:3 3 PM MANAGER GENERATION Narrative 08/30/2006 12:33 PM MANAGER GENERATION PELVIS AND RIGHT HIP: TECHNIQUE: Two views [...] By: Marcus Eng M.D. Date Signed: 09/02/06 Procedure Note [...] documented as of this encounter Care Teams Lease Buyer Relationship Specialty Start Date End Date Jose Bowers MD [address] [place] [address] PCP - General 12/31/05 documented as of this encounter
--- OUTSIDE RECORDS SUMMARY | 2025-02-05 05:02 | XMS_ITS | Encounter Summary ---
Author Organization [facility] Address [address] [place] [address] Care Team Providers Care Professor/Nurse Anesthetist Name Role Phone Jose Bowers MD Primary Care Provider Unavailab le Encounter Details Date Type Department Care Team (Late st Contact Info) Description 04/15/2006 Outpatient Historical [facility] Physical Med and Rehab- [place] [address] [place] [phone] Jose Bowers MD [address] [place] [address] Paraplegia (CMS/HCC) (Primary Dx) Social History Tobacco Use Types Packs/Day Years Used Date Smoking Tobacco: Never Assessed Comments Unknown Sex and Gender Information Value Date Recorded Sex Assigned at Not on file 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 Sex Female 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
--- OUTSIDE RECORDS SUMMARY | 2025-02-05 05:02 | XMS_ITS | Encounter Summary ---
Author Organization [facility] Address [address] [place] [address] Care Team Providers Care Signal Operator Technical Name Role Phone Jose Bowers MD Primary Care Provider Unavailab le Encounter Details Date Type Department Care Team (Late st Contact Info) Description 11/01/2005 Outpatient Historical [facility] Physical Med and Rehab- [place] [address] [place] [phone] Jose Bowers MD [address] [place] [address] Unspecified Paralysis (CMS/HCC) (Primary Dx); Neurogenic Bladder, NOS Social History Tobacco Use Types Packs/Day Years Used Date Smoking Tobacco: Never Assessed Comments Unknown Sex and Gender Information Value Date Recorded Sex Assigned at Not on file Legal Sex Female 6:28 AM AUTOMATION CONSULTANT Gender Identity Not on file Sexual Orientation [...] documented as of this encounter Care Teams Signal Operator Technical Relationship Specialty Start Date End Date Jose Bowers MD [address] [place] [address] PCP - General 12/31/05 documented as of this encounter
--- OUTSIDE RECORDS SUMMARY | 2025-02-05 05:02 | XMS_ITS | Encounter Summary ---
Author Organization [facility] Address [address] [place] [address] Care Team Providers Care Configuration Management Advisor Name Role Phone Jose Bowers MD Primary Care Provider Unavailab le Encounter Details Date Type Department Care Team (Late st Contact Info) Description 07/24/2006 Outpatient Historical [facility] Physical Med and Rehab- [place] [address] [place] [phone] Jose Bowers MD [address] [place] [address] Paraplegia (CMS/HCC) (Primary Dx); Difficulty in Walking; Pain in Limb Social History Tobacco Use Types Packs/Day Years Used Date Smoking Tobacco: Never Assessed Comments Unknown Sex and Gender Information Value Date Recorded Sex Assigned at Not on file Legal Sex Female 6:28 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
--- OUTSIDE RECORDS SUMMARY | 2025-02-05 05:02 | XMS_ITS | Encounter Summary ---
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 Gender Identity Not on file Sexual Orientation [...] SYSTEM Comment: Expected Values for INR: DVT/PE Goal INR 2.5; range 2.0 - 3.0 Valve Replacement Tissue Goal INR 2.5; range 2.0 - 3.0 Mechanical Goal INR 3.0; range 2.5 - 3.5 POST-ND Goal INR 2.5; range 2.0 - 3.0 or Goal 3.0; range 2.5 - 3.5 Atrial Fibrillation Goal INR 2.5; range 2.0 - 3.0 Ischemic Stroke Goal INR 2.5; range 2.0 - 3.0 For additional information see Guidelines for Anticoagulation available from the pharmacy [facility] 12/31/2006 10:4 5 AM CDT Jose Bowers [...] SYSTEM 12/31/2006 10:4 5 AM CDT us Jsoe Bowers MD HEMATOLOGY ORDERABLES Edited INTERFACE SYSTEM Refer to clinic/hospital department documented in this encounter Visit Diagnoses Diagnosis Pain in limb- Primary documented in this encounter Additional Health Concerns Infection Onset Date Last Indicated Resolved Time MRSA Comment:Kapil 10/26/15 10/27/2015 10/27/2015 documented as of this encounter Care Teams Blacksmith Helper Relationship Specialty Start Date End Date Jose Bowres MD [address] [place] [address] PCP - General 12/31/05 documented as of this encounter
--- OUTSIDE RECORDS SUMMARY | 2025-02-05 05:02 | XMS_ITS | Encounter Summary ---
Author Organization [facility] Address [address] [place] [address] Care Team Providers Care Equal Opportunity Specialist Name Role Phone Jose Bowers MD Primary Care Provider Levon lowry Encounter Details Date Type Department Care Team (Latest Contact Info) Description 04/28/2008 Outpatient Historical [facility] [address] [place] [address] AMBULANCE, [facility] Paraplegia ([facility]); Pressure Ulcer, Upper Back; Pressure Ulcer, Unspecified Stage; Wheelchair Dependence; Bed Confinement Status; Encounter for Long-Term (Current) Use of Other Medications; Encounter for Long-Term (Current) Use of Insulin ([facility]); Personal History of Allergy to Penicillin; Personal History of Allergy to Narcotic Agent Social History Tobacco Use Types Packs/Day Years Used Date Smoking Tobacco: Never Assessed Comments Unknown Sex and Gender Information Value Date Recorded Sex Assigned at Not on file 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 Gender Identity Not on file Sexual Orientation Not on file documented as of this encounter Plan of Treatment Not on file documented as of this encounter Visit Diagnoses Diagnosis Paraplegia ([facility]) Paraplegia Pressure ulcer, upper back(707.02) Pressure ulcer, upper back Pressure ulcer, unspecified stage(707.20) Pressure ulcer, unspecified stage Wheelchair dependence Bed confinement status Encounter for long-term (current) use of other medications Encounter for long-term (current) use of insulin ([facility]) Encounter for long-term (current) use of insulin Personal history of allergy to penicillin Personal history of allergy to narcotic agent documented in this encounter Additional Health Concerns Infection Onset Date Last Indicated Resolved Time MRSA Comment:Nares 4/20/16 10/27/2015 10/27/2015 documented as of this encounter Care Teams Equal Opportunity Specialist Relationship Specialty Start Date End Date Jose Bowers MD [address] [place] [address] PCP - General 12/31/05 documented as of this encounter
--- OUTSIDE RECORDS SUMMARY | 2025-02-05 05:02 | XMS_ITS | Encounter Summary ---
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
--- OUTSIDE RECORDS SUMMARY | 2025-02-05 05:02 | XMS_ITS | Encounter Summary ---
Author Organization [facility] Address [address] [place] [address] Care Team Providers Care Industrial Ecology Technician Name Role Phone Jose Bowers MD Primary Care Provider Unavailab le Encounter Details Date Type Department Care Team (Late st Contact Info) Description 07/10/2007 Outpatient [facility] Physical Med and Rehab- [place] [address] [place] [address] Ramana Juarez MD [address] [place] [address] Social History Tobacco Use Types Packs/Day Years Used Date Smoking Tobacco: Never Assessed Comments Unknown Sex and Gender Information Value Date Recorded Sex Assigned at Not on file 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
--- OUTSIDE RECORDS SUMMARY | 2025-02-05 05:02 | XMS_ITS | Encounter Summary ---
Author Organization [facility] Address [address] [place] [address] Care Team Providers Care Installers Mechanical Name Role Phone Jose Bowers MD Primary Care Provider Unavail le Encounter Details Date Type Department Care Team (Late st Contact Info) Description 11/26/2005 Inpatient Historical [facility] Jose Bowers MD [address] [place] [address] Other Specified Rehabilitation Procedure (Primary Dx) Social History Tobacco Use Types Packs/Day Years Used Date Smoking Tobacco: Never Assessed Comments Unknown Sex and Gender Information Value Date Recorded Sex Assigned at Not on file 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 [facility] has changed the methodology for TSH, and with this change the reference range has changed from 0.49-4.67 to 0.35-5.5 uIU/ml. 11/27/2005 6:09 AM CDT Jose Bowers MD CHEMISTRY ORDERABLES Final Resul t Performing Organization Address [facility] Phone Number INTERFACE SYSTEM Refer to clinic/hospital [...] Goal INR 3.0; range 2.5 - 3.5 POST-WV Goal INR 2.5; range 2.0 - 3.0 or Goal 3.0; range 2.5 - 3.5 Atrial Fibrillation Goal INR 2.5; range 2.0 - 3.0 Ischemic Stroke Goal INR 2.5; range 2.0 - 3.0 For additional information see Guidelines for Anticoagulation available from the pharmacy [facility] 11/27/2005 6:09 AM CDT Jose Bowers MD HEMATOLOGY ORDERABLES Final Resu lt Performing Organization Address City/[facility] Co de Phone Number INTERFACE SYSTEM Refer to clinic/hospital department * (ABNORMAL) C-REACTIVE PROTEIN (11/27/2005 6:09 AM CDT) CRP 1.19(H) 0.00 - 1.00 mg/dL INTERFACE SYSTEM 11/27/2005 6:09 AM CDT Jose Bowers MD CHEMISTRY ORDERABLES Final Resul t Performing Organization Address City/[facility] Co de Phone Number INTERFACE SYSTEM [...] INTERFACE SYSTEM Comment: As of 05 the [facility] has changed testing methods. The new reference range is 25-100 The old referance range was 38-126 AST 26 8 - 33 U/L INTERFACE SYSTEM Comment: As of 05 the [facility] has changed testing methods. The new reference range is 8-33 The old referance range was Males 17-59 Females 14-36 ALT 27 4 - 36 IU/L INTERFACE SYSTEM Comment: As of 05 the [facility] has changed testing methods. The new reference range is 4-36 The old referance range was Males 21-72 Females 9-52 BILIRUBIN TOTAL 0.2(L) 0.3 - 1.2 mg/dL INTERFACE SYSTEM Comment: As of 05 the [facility] has changed testing methods. The new reference range is 0.3-1.2 The old referance range was 0.2-1.4 11/27/2005 6:09 AM CDT Jose Bowers MD CHEMISTRY ORDERABLES Final Resul t Performing Organization Address [facility] Phone Number INTERFACE SYSTEM Refer to clinic/hospital department * (ABNORMAL) SEDIMENTATION RATE (11/27/2005 6:09 AM CDT) ESR (SEDIMENTATION RATE) 25(H) 0 - 22 mm/hr INTERFACE SYSTEM 11/27/2005 6:09 AM CDT Jose Bowers MD HEMATOLOGY ORDERABLES Final Resu lt Performing Organization Address [facility] Phone Number INTERFACE SYSTEM Refer to clinic/hospital [...] ORDERABLES Final Resu lt Performing Organization Address [facility] de Phone Number INTERFACE SYSTEM Refer to [...] URINE ORDERABLES Final Result Performing Organization Address [facility] de Phone Number INTERFACE SYSTEM Refer to [...] be confirmed by sulfosalicylic acid (SSA) precipitation. Current methodology for protein detection is highly sensitive [...] URINE ORDERABLES Final Result Performing Organization Address City/State/[facility] Co de Phone Number INTERFACE SYSTEM Refer to clinic/hospital department * XR THORACIC SPINE 3 VW (11/26/2005 10:38 AM CDT) Anatomical Region Laterality Modality Spine Other 11/26/2005 10:3 8 AM CDT Narrative 11/26/2005 10:38 AM CDT THORACIC SPINE: REASON FOR EXAMINATION: T4 paraparesis. TECHNIQUE: Two films AP, two films lateral. FINDINGS: The bony structures show a marked kyphosis of the dorsothoracic spine. No collapsed or subluxed vertebral bodies are noted. No focal lytic or blastic changes are noted. The study is rotated in an off-axis. IMPRESSION: Limited study. Nonspecific findings present. [facility] D: [id number] Dictated By: Marcus Eng M.D. Electronically Signed By: Marcus Eng M.D. Date Signed: 11/27/05 Procedure Note 05/27/2009 THORACIC SPINE: REASON FOR EXAMINATION: T4 paraparesis. TECHNIQUE: Two films AP, two films lateral. FINDINGS: The bony structures show a marked kyphosis of the dorsothoracic spine. Nocollapsed or subluxed vertebral bodies are noted. No focal lytic or blastic changes are noted.The study is rotated in an off-axis. IMPRESSION: Limited study. Nonspecific findings present. [facility] D: [id number] Dictated By: Marcus Eng M.D. [...] documented as of this encounter Care Teams Installers Mechanical Relationship Specialty Start Date End Date Jose Bowers MD [address] [place] [id number] PCP - General 12/31/05 documented as of this encounter
--- OUTSIDE RECORDS SUMMARY | 2025-02-05 05:02 | XMS_ITS | Clinical Summary ---
Author Organization 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 Gender Identity Not on file Sexual Orientation Not on file Last Filed Vital Signs Vital Sign Reading Time Taken Comments Blood Pressure 125/70 10/28/2015 10:00 AM CDT Pulse 103 10/28/2015 10:00 AM CDT Temperature 36.4 C (97.6 F) 10/28/2015 10:00 AM CDT Respiratory Rate 18 10/28/2015 10:0 [...] of 3 - 19+ 3-dose series) 02/07 HPV/Cotest (21-29) 1989 CERVICAL CANCER SCREENING 1998 HPV/Cotest (30-65) 1998 PAP SMEAR 1998 BREAST CANCER SCREENING 2008 COLORECTAL SCREENING 2013 Colorectal Cancer Screening 2013 FIT-DNA Q 3 years 2013 FIT/FOBT Q 1 year 2013 Flex Sig/CT Colonography Q 5 years 2013 ZOSTER VACCINE (1 of 2) 2018 INFLUENZA VACCINE (#1) 2025 05/09/2008 Additional Health Concerns Infection Onset Date Last Indicated MRSA Comment:Kapil 10/26/15 10/27/2015 10/27/2015 Insurance MEDICAID [place] Care Teams Spa Consultant Relationship Specialty Start Date End Date Jose Bowers MD [address] [place] [address] PCP - General 12/31/05
--- OUTSIDE RECORDS SUMMARY | 2025-02-05 05:02 | XMS_ITS | Encounter Summary ---
Author Organization [facility] Address [address] [place] [address] Care Team Providers Care Director Of Science Name Role Phone Jose Bowers MD Primary Care Provider Unavailab le Encounter Details Date Type Department Care Team (Late st Contact Info) Description 10/02/2006 Outpatient Historical [facility] Med and Re[facility]- [place] [address] [place] [phone] Jose Bowers MD [address] [place] [address] Paraplegia (CMS/HCC) (Primary Dx) Social History Tobacco Use Types Packs/Day Years Used Date Smoking Tobacco: Never Assessed Comments Unknown Sex and Gender Information Value Date Recorded Sex Assigned at Not on file 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
--- OUTSIDE RECORDS SUMMARY | 2025-02-05 05:02 | XMS_ITS | Encounter Summary ---
Author Organization [facility] Address [address] [place] [address] Care Team Providers Care Laborer Drying Department Name Role Phone Jose Bowers MD Primary Care Provider Unavailab le Encounter Details Date Type Department Care Team (Latest Contact Info) Description 08/30/[address] 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 Gender Identity Not on file Sexual Orientation Not on file documented as of this encounter Plan of Treatment Not on file documented as of this encounter Procedures Procedure Name Priority Date/Time Associated Diagnosis Comments CBC WITH DIFFERENTIAL Routine 08/30/2006 12:42 PM BALANCING MACHINE OPERATOR SEDIMENTATION RATE Routine 08/30/2006 12 :42 PM BALANCING MACHINE OPERATOR CK Routine 08/30/2006 12:42 PM BALANCING MACHINE OPERATOR documented in this encounter Results * (ABNORMAL) CK (08/30/2006 12:42 PM BALANCING MACHINE OPERATOR) CK 201(H) 26 - 140 U/L INTERFACE SYSTEM Comment: As of 05 the [facility] has changed testing methods. The new reference ranges are Males 38-174 Females 26-140 The old referance ranges were Males 0-155 Females 0-133 08/30/2006 12:4 2 PM BALANCING MACHINE OPERATOR Jose Bowers MD CHEMISTRY ORDERABLES Edited Performing Organization Address City/[facility] Co de Phone Number INTERFACE SYSTEM Refer to clinic/hospital department * (ABNORMAL) CBC WITH DIFFERENTIAL (08/30/2006 12:42 PM BALANCING MACHINE OPERATOR) WBC 5.1 4.5 - 11.0 K/ul INTERFACE [...] K/ul INTERFACE SYSTEM 08/30/2006 12:4 2 PM BALANCING MACHINE OPERATOR Jose Bowers MD HEMATOLOGY ORDERABLES Edited Performing Organization Address City/[facility] Co de Phone Number INTERFACE SYSTEM Refer to clinic/hospital department * (ABNORMAL) SEDIMENTATION RATE (08/30/2006 12:42 PM BALANCING MACHINE OPERATOR) ESR (SEDIMENTATION RATE) 27(H) 0 - 22 mm/hr INTERFACE SYSTEM 08/30/2006 12:4 2 PM BALANCING MACHINE OPERATOR Jose Bowers MD HEMATOLOGY ORDERABLES Edited INTERFACE SYSTEM Refer to clinic/hospital department documented in this encounter Visit Diagnoses Diagnosis Pain in joint, pelvic region and thigh- Primary documented in this encounter Additional Health Concerns Infection Onset Date Last Indicated Resolved Time MRSA Comment:Kapil 10/26/15 10/27/2015 10/27/2015 documented as of this encounter Care Teams Laborer Drying Department Relationship Specialty Start Date End Date Jose Bowers MD [address] [place] [id number] PCP - General 12/31/05 documented as of this encounter
--- OUTSIDE RECORDS SUMMARY | 2025-02-05 05:02 | XMS_ITS | Encounter Summary ---
Author Organization [facility] Address [address] [place] [address] Care Team Providers Care Global Marketing Intern Name Role Phone Jose Bowers MD Primary Care Provider Unavailab le Encounter Details Date Type Department Care Team (Late st Contact Info) Description 12/31/2006 Outpatient Historical [facility] Physical Med and Rehab- [place] [address] [place] [phone] Jose Bowers MD [address] [place] [address] Paraplegia (CMS/HCC) (Primary Dx) Social History Tobacco Use Types Packs/Day Years Used Date Smoking Tobacco: Never Assessed Comments Unknown Sex and Gender Information Value Date Recorded Sex Assigned at Not on file 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
--- OUTSIDE RECORDS SUMMARY | 2025-02-05 05:02 | XMS_ITS | Clinical Summary ---
Author Organization [facility] Address 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
--- OUTSIDE RECORDS SUMMARY | 2025-02-05 05:02 | XMS_ITS | Encounter Summary ---
Author Organization [facility] Address [address] [place] [address] Care Team Providers Care Qualitative Researcher Name Role Phone Jose Bowers MD Primary Care Provider Unavailab le Encounter Details Date Type Department Care Team (Latest Contact Info) Description 07/24/2006 Outpatient Historical [facility] [address] 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
--- OUTSIDE RECORDS SUMMARY | 2025-02-05 05:02 | XMS_ITS | Encounter Summary ---
Author Organization [facility] Address [address] [place] [address] Care Team Providers Care Ferry Engineer Name Role Phone Jose Bowers MD Primary Care Provider Unavailab le Encounter Details Date Type Department Care Team (Late st Contact Info) Description 01/30/2007 Outpatient Historical [facility] Physical Med and Rehab- [place] [address] [place] [phone] Jose Bowers MD [address] [place] [address] Paraplegia (CMS/HCC) (Primary Dx) Social History Tobacco Use Types Packs/Day Years Used Date Smoking Tobacco: Never Assessed Comments Unknown Sex and Gender Information Value Date Recorded Sex Assigned at Not on file 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
--- OUTSIDE RECORDS SUMMARY | 2025-02-05 05:02 | XMS_ITS | Encounter Summary ---
Author Organization [facility] Address [address] [place] [address] Care Team Providers Care Online Trader Name Role Phone Jose Bowers MD Primary Care Provider Unavailab le Encounter Details Date Type Department Care Team (Latest Contact Info) Description 02/05/2005 Outpatient Historical [facility] [address] [place] [address] [place] [phone] Morenita Muñiz MD [address] [place] [address] ADMINISTRTVE ENCOUNT NOS (Primary Dx) Social History Tobacco Use Types Packs/Day Years Used Date Smoking Tobacco: Never Assessed Comments Unknown Sex and Gender Information Value Date Recorded Sex Assigned at Not on file Legal Sex Female 6:28 AM USER ACCEPTANCE TESTER Gender Identity Not on file Sexual Orientation Not on file documented as of this encounter Plan of Treatment Not on file documented as of this encounter Visit Diagnoses Diagnosis Encounters for unspecified administrative purpose- Primary documented in this encounter Additional Health Concerns Infection Onset Date Last Indicated Resolved Time MRSA Comment:Kapil 10/26/15 10/27/2015 10/27/2015 documented as of this encounter Care Teams Online Trader Relationship Specialty Start Date End Date Jose Bowers MD [address] [place] [address] PCP - General 12/31/05 documented as of this encounter
--- OUTSIDE RECORDS SUMMARY | 2025-02-05 05:02 | XMS_ITS | Encounter Summary ---
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 The new reference ranges are Males 38-174 Females 26-140 The old referance ranges were Males 0-155 Females 0-133 12/31/2005 12:4 8 PM CDT Jose Bowers MD CHEMISTRY ORDERABLES Final Resul t Performing Organization Address [facility] Phone Number INTERFACE SYSTEM Refer to clinic/hospital department * C-REACTIVE PROTEIN (12/31/2005 12:48 PM CDT) CRP 0.85 0.00 - 1.00 mg/dL INTERFACE SYSTEM 12/31/2005 12:4 8 PM CDT Jose Bowers MD CHEMISTRY ORDERABLES Final Resul t Performing Organization Address [facility] Phone Number INTERFACE SYSTEM Refer to clinic/hospital department * SEDIMENTATION RATE (12/31/2005 12:48 PM CDT) ESR (SEDIMENTATION RATE) 18 0 - 22 mm/hr INTERFACE SYSTEM 12/31/2005 12:4 8 PM CDT Jose Bowers MD HEMATOLOGY ORDERABLES Final Resu lt Performing Organization Address [facility] Phone Number INTERFACE SYSTEM Refer to clinic/hospital [...] in this encounter Visit Diagnoses Diagnosis [facility]aplegia ([facility])- Primary Paraplegia documented in this encounter Additional Health Concerns Infection Onset Date Last Indicated Resolved Time MRSA Comment:Kapil 10/26/15 10/27/2015 10/27/2015 documented as of this encounter Care Teams Implant Coordinator Relationship Specialty Start Date End Date Jose Bowers MD [address] [place] [address] PCP - General 12/31/05 documented as of this encounter
== END 2025-02-04 15:28 | disposition home or self-care (01) ==
PROVIDERS: Emergency Provider Student in an Organized Health Care Education/Training Program; PCP Family Medicine
DX: T83.091A Other mechanical complication of indwelling urethral catheter, initial encounter (principal); N30.90 Cystitis, unspecified without hematuria; X58.XXXA Exposure to other specified factors, initial encounter
CPT/HCPCS: 36415; 80053; 81001; 83605; 85025; 87040; 87086; 96372; 99284; J0696

== ENCOUNTER → 2025-02-11 13:21 | Outpatient (BNVA) | payer OTHER, MEDICAID, SELFPAY | PROVIDERS: PCP Family Medicine; Visit Provider Thoracic Surgery (Cardiothoracic Vascular Surgery) | DX: I96 Gangrene, not elsewhere classified (principal); L98.491 Non-pressure chronic ulcer of skin of other sites limited to breakdown of skin; L89.152 Pressure ulcer of sacral region, stage 2 | CPT/HCPCS: 97597; 97598; A6021; A6210; A6248 ==

== ENCOUNTER 2025-02-22 13:46 | Emergency (ER) | payer OTHER, MEDICAID, SELFPAY ==
--- OUTSIDE RECORDS SUMMARY | 2003-07-07 19:00 | XMS_ITS | Continuity of Care Document ---
Author Name [facility] Address [address] [place] [address] Organization [facility] Care Team Providers Care Wind Farm Electrical Systems Designer Name Role Phone [facility] Unavailable Unavailable Allergies, Adverse Reactions, Alerts Substance Category Reaction Severity Reaction type Status Date Reported Comments Source penicillin Assertion Convulsion Severe Drug allergy Active [facility] vancomycin Assertion Drug allergy Active [facility] Ultram Assertion Itching Mild Drug allergy Active [facility] Tape - See Comment Assertion Allergy to substance Active [facility]
[2025-02-22] VITALS (14 sets, daily range): BP systolic 85–146; BP diastolic 44–86; PULSE 91–107; RESP 18; TEMP 36.6; O2SAT 93–99
--- OUTSIDE RECORDS SUMMARY | 2025-02-22 13:54 | XMS_ITS | Encounter Summary ---
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 Venous blood specimen (specimen) 04/08/2008 4:10 PM CDT 04/09/2008 7:42 AM CDT Riky Mejía MD POINT OF CARE TESTING Final Result Performing Organization Address City/State/[facility] Co de Phone Number INTERFACE SYSTEM Refer to clinic/hospital department [facility] CLIA# [id number] [facility] [place] [address] * (ABNORMAL) POC GLUCOSE (04/08/2008 11:00 AM CDT) GLUCOSE POC 122(H) 60 - 100 mg/dL [facility] Venous blood specimen (specimen) 04/08/2008 11:00 AM CDT 04/09/2008 7:42 AM CDT us Riky Mejía MD POINT OF CARE TESTING Final Result Performing Organization Address [facility] de Phone Number INTERFACE SYSTEM Refer to clinic/hospital department [facility] CLIA# [id number] [address] [place] [address] * (ABNORMAL) POC GLUCOSE (04/08/2008 5:12 AM CDT) GLUCOSE POC 124(H) 60 - 100 mg/dL [facility] Venous blood specimen (specimen) 04/08/2008 5:12 AM CDT 04/08/2008 7:16 AM CDT Riky Mejía MD POINT OF CARE TESTING Final Result Performing Organization Address [facility] de Phone Number INTERFACE SYSTEM Refer to clinic/hospital department [facility] CLIA# [id number] [address] [place] [address] * (ABNORMAL) BASIC METABOLIC PANEL (04/08/2008 4:30 AM CDT) POTASSIUM 4.2 3.5 - 5.0 mEq/L [facility] OSMOLALITY, CALCULATED 284 275 - 295 mOsm/Kg [facility] CREATININE 0.5(L) 0.7 - 1.2 mg/dL [facility] CALCIUM 8.4 8.4 - 10.5 mg/dL [facility] GLUCOSE 141(H) 70 - 110 mg/dL [facility] CHLORIDE 102 95 - 110 mEq/L [facility] ANION GAP 9 9 - 20 mEq/L [facility] SODIUM 137 136 - 145 mEq/L [facility] BUN 11 7 - 17 mg/dL [facility] CO2 30 22 - 32 mmol/l [facility] Blood specimen (specimen) 04/08/2008 4:30 AM CDT 04/08/2008 4:30 AM CDT Riky Mejía MD CHEMISTRY ORDERABLES Final Result INTERFACE SYSTEM Refer to clinic/hospital department [facility] CLIA# [id number] [facility] [place] [address] * (ABNORMAL) CBC WITH DIFFERENTIAL (04/08/2008 4:30 AM CDT) MCV 90.8 84.0 - 103.[address] [facility] BASOPHILS 0.2 0.0 - 1.0 % [facility] MPV 10.7 8.9 - 12.[address] [facility] BASOPHILS ABSOLUTE 0.0 0.0 - 0.2 K/ul [facility] HEMOGLOBIN 10.6(L) 12.0 - 16.0 g/dL [facility] MONOCYTES 8.0 2.0 - 10.0 % [facility] RDW 16.8(H) 11.0 - 14.5 % [facility] MONOCYTE ABSOLUTE 1.0(H) 0.1 - 0.6 K/ul [facility] WBC 12.7(H) 4.5 - 11.0 K/ul [facility] NEUTROPHILS 86.4(H) 42.2 - 75.2 % [facility] MCH 29.4 27.0 - 34.[address] [facility] NEUTROPHIL ABSOLUTE 10.9(H) 2.0 - 8.0 K/ul [facility] HEMATOCRIT 32.7(L) 36.0 - 46.0 % [facility] PLATELETS 149 140 - 440 K/ul [facility] EOSINOPHIL ABSOLUTE 0.1 0.0 - 0.7 K/ul [facility] EOSINOPHILS 0.7 0.0 - 7.0 % [facility] RBC 3.60(L) 4.20 - 5.40 Mil/ul [facility] MCHC 32.4 30.0 - 35.0 g/dL [facility] LYMPHOCYTE ABSOLUTE 0.6(L) 1.2 - 4.0 K/ul [facility] LYMPHOCYTES 4.7(L) 24.0 - 44.0 % [facility] Blood specimen (specimen) 04/08/2008 4:30 AM CDT 04/08/2008 4:30 AM CDT us Riky Mejía MD HEMATOLOGY ORDERABLES Final Result Performing Organization Address City/[facility] de Phone Number INTERFACE SYSTEM Refer to clinic/hospital department [facility] CLIA# [id number] [facility] [place] [address] * BLOOD CULTURE (04/07/2008 9:56 PM CDT) FINAL REPORT No growth INTERFA CE SYSTEM Blood specimen (specimen) 04/07/2008 9:56 PM CDT 04/07/2008 9:56 PM CDT us Riky Mejía MD MICROBIOLOGY - GENERAL MINERVA ATKINSON Final Result Performing Organization Address [facility] de Phone Number INTERFACE SYSTEM Refer to clinic/hospital department * BLOOD CULTURE (04/07/2008 9:56 PM CDT) FINAL REPORT No growth INTERFA CE SYSTEM Blood specimen (specimen) 04/07/2008 9:56 PM CDT 04/07/2008 9:56 PM CDT us Riky Mejía MD MICROBIOLOGY - GENERAL MINERVA ATKINSON Final Result Performing Organization Address [facility] de Phone Number INTERFACE SYSTEM Refer to clinic/hospital department * (ABNORMAL) POC GLUCOSE (04/07/2008 8:36 PM CDT) GLUCOSE POC 159(H) 60 - 100 mg/dL [facility] Venous blood specimen (specimen) 04/07/2008 8:36 PM CDT 04/08/2008 7:22 AM CDT us Riky Mejía MD POINT OF CARE TESTING Final Result Performing Organization Address City/[facility] de Phone Number INTERFACE SYSTEM Refer to clinic/hospital department [facility] CLIA# [id number] [address] [place] [address] * (ABNORMAL) POC GLUCOSE (04/07/2008 5:39 PM CDT) GLUCOSE POC 122(H) 60 - 100 mg/dL [facility] Venous blood specimen (specimen) 04/07/2008 5:39 PM CDT 04/08/2008 7:16 AM CDT Riky Mejía MD POINT OF CARE TESTING Final Result Performing Organization Address [facility] de Phone Number INTERFACE SYSTEM Refer to clinic/hospital department [facility] CLIA# [id number] [address] [place] [address] * (ABNORMAL) POC ISTAT EG 7+ (04/07/2008 4:27 PM CDT) FIO2 [address] [facility] PO2 67(L) 80 - [address] [facility] CALCIUM IONIZED 1.15 1.12 - 1.32 mmol/l [facility] HEMATOCRIT ABG 32(L) 38 - 51 % [facility] PCO2 POC 45 35 - [address] [facility] SODIUM 137(L) 138 - 146 mEq/L [facility] BASE EXCESS 7(H) -2 - 3 mmol/l [facility] PH 7.45 7.35 - 7.[address] [facility] O2 SATURATION 94(L) 95 - 98 % [facility] PO2 TEMP CORRECT 67(L) 80 - [address] [facility] SPECIMEN TYPE Arterial [facility] Comment: Test Performed By [id number] Pulse OX: 99 Hemoglobin calculated from Hematocrit result PCO2 TEMP CORRECT 45 35 - [address] [facility] HEMOGLOBIN POC 10.9 +/-3 g/dL 12.0 - 16.0 g/dL [facility] POTASSIUM 4.0 3.5 - 4.9 mEq/L [facility] PH TEMP CORRECT 7.45 7.35 - 7.[address] [facility] HCO3 (CALC) POC 31.1(H) 22.0 - 26.0 mmol/l [facility] TCO2 (CALC) POC 32(H) 23 - 27 mmol/l [facility] Arterial blood specimen (specimen) 04/07/2008 4:27 PM CDT 04/07/2008 4:30 PM CDT Riky Mejía MD POINT OF CARE TESTING COM F inal Result Performing Organization Address [facility] de Phone Number INTERFACE SYSTEM Refer to clinic/hospital department [facility] CLIA# [id number] [address] [place] [address] * (ABNORMAL) POC GLUCOSE (04/07/2008 11:30 AM CDT) GLUCOSE POC 108(H) 60 - 100 mg/dL [facility] Venous blood specimen (specimen) 04/07/2008 11:30 AM CDT 04/08/2008 7:16 AM CDT Riky Mejía MD POINT OF CARE TESTING Final Result Performing Organization Address [facility] de Phone Number INTERFACE SYSTEM Refer to clinic/hospital department [facility] CLIA# [id number] [address] [place] [address] * (ABNORMAL) POC GLUCOSE (04/07/2008 5:02 AM CDT) GLUCOSE POC 138(H) 60 - 100 mg/dL [facility] Venous blood specimen (specimen) 04/07/2008 5:02 AM CDT 04/07/2008 7:10 AM CDT Riky Mejía MD POINT OF CARE TESTING Final Result INTERFACE SYSTEM Refer to clinic/hospital department [facility] CLIA# [id number] [address] [place] [address] * (ABNORMAL) CBC WITH DIFFERENTIAL (04/07/2008 3:13 AM CDT) HEMATOCRIT 30.3(L) 36.0 - 46.0 % [facility] EOSINOPHILS 1.6 0.0 - 7.0 % [facility] PLATELETS 140 140 - 440 K/ul [facility] PERIPHERAL BLOOD SMEAR REVIEW Automated Diff [facility] EOSINOPHIL ABSOLUTE 0.2 0.0 - 0.7 K/ul [facility] RBC 3.33(L) 4.20 - 5.40 Mil/ul [facility] LYMPHOCYTES 6.7(L) 24.0 - 44.0 % [facility] MCHC 32.3 30.0 - 35.0 g/dL [facility] LYMPHOCYTE ABSOLUTE 0.8(L) 1.2 - 4.0 K/ul [facility] MCV 91.0 84.0 - 103.[address] [facility] MPV 11.6 8.9 - 12.[address] [facility] BASOPHILS ABSOLUTE 0.0 0.0 - 0.2 K/ul [facility] BASOPHILS 0.2 0.0 - 1.0 % [facility] HEMOGLOBIN 9.8(L) 12.0 - 16.0 g/dL [facility] RDW 16.9(H) 11.0 - 14.5 % [facility] MONOCYTE ABSOLUTE 1.1(H) 0.1 - 0.6 K/ul [facility] MONOCYTES 9.4 2.0 - 10.0 % [facility] WBC 11.7(H) 4.5 - 11.0 K/ul [facility] MCH 29.4 27.0 - 34.[address] [facility] NEUTROPHIL ABSOLUTE 9.6(H) 2.0 - 8.0 K/ul [facility] NEUTROPHILS 82.1(H) 42.2 - 75.2 % [facility] Blood specimen (specimen) 04/07/2008 3:13 AM CDT 04/07/2008 3:19 AM CDT us Riky Mejía MD HEMATOLOGY ORDERABLES Final Result Performing Organization Address City/[facility] Phone Number INTERFACE SYSTEM Refer to clinic/hospital department [facility] CLIA# [id number] [address] [place] [address] * (ABNORMAL) BASIC METABOLIC PANEL (04/07/2008 3:13 AM CDT) [facility] OSMOLALITY, CALCULATED 291 275 - 295 mOsm/Kg [facility] POTASSIUM 4.1 3.5 - 5.0 mEq/L [facility] CREATININE 0.6(L) 0.7 - 1.2 mg/dL [facility] CALCIUM 8.6 8.4 - 10.5 mg/dL [facility] GLUCOSE 141(H) 70 - 110 mg/dL [facility] CHLORIDE 105 95 - 110 mEq/L [facility] SODIUM 140 136 - 145 mEq/L [facility] ANION GAP 7(L) 9 - 20 mEq/L [facility] BUN 14 7 - 17 mg/dL [facility] CO2 32 22 - 32 mmol/l [facility] Blood specimen (specimen) 04/07/2008 3:13 AM CDT 04/07/2008 3:19 AM CDT us Riky Mejía MD CHEMISTRY ORDERABLES Final Result Performing Organization Address [facility] de Phone Number INTERFACE SYSTEM Refer to clinic/hospital department [facility] CLIA# [id number] [address] [place] [address] * (ABNORMAL) POC GLUCOSE (04/06/2008 8:09 PM CDT) [facility] GLUCOSE POC 118(H) 60 - 100 mg/dL [facility] Venous blood specimen (specimen) 04/06/2008 8:09 PM CDT 04/07/2008 7:13 AM CDT Riky Mejía MD POINT OF CARE TESTING Final Result Performing Organization Address [facility] Phone Number INTERFACE SYSTEM Refer to clinic/hospital department [facility] CLIA# [id number] [address] [place] [address] * (ABNORMAL) POC GLUCOSE (04/06/2008 5:03 PM CDT) GLUCOSE POC 131(H) 60 - 100 mg/dL [facility] Venous blood specimen (specimen) 04/06/2008 5:03 PM CDT 04/07/2008 7:10 AM CDT Riky Mejía MD POINT OF CARE TESTING Final Result Performing Organization Address [facility] Phone Number INTERFACE SYSTEM Refer to clinic/hospital department [facility] CLIA# [id number] [address] [place] [address] * (ABNORMAL) POC GLUCOSE (04/06/2008 10:59 AM CDT) GLUCOSE POC 128(H) 60 - 100 mg/dL [facility] Venous blood specimen (specimen) 04/06/2008 10:59 AM CDT 04/07/2008 7:10 AM CDT Riky Mejía MD POINT OF CARE TESTING Final Result Performing Organization Address [facility] de Phone Number INTERFACE SYSTEM Refer to clinic/hospital department [facility] CLIA# [id number] [address] [place] [address] * XR CHEST PA OR AP (04/06/2008 [...] POC 126(H) 60 - 100 mg/dL [facility] Venous blood specimen (specimen) 04/06/2008 6:02 AM CDT 04/06/2008 7:01 AM CDT Riky Mejía MD POINT OF CARE TESTING Final Result INTERFACE SYSTEM Refer to clinic/hospital department [facility] CLIA# [id number] [address] [place] [address] * (ABNORMAL) CBC WITH DIFFERENTIAL (04/06/2008 3:55 AM CDT) NEUTROPHILS 81.1(H) 42.2 - 75.2 % [facility] MCH 29.1 27.0 - 34.[address] [facility] NEUTROPHIL ABSOLUTE 8.9(H) 2.0 - 8.0 K/ul [facility] HEMATOCRIT 31.3(L) 36.0 - 46.0 % [facility] PLATELETS 122(L) 140 - 440 K/ul [facility] EOSINOPHIL ABSOLUTE 0.3 0.0 - 0.7 K/ul [facility] EOSINOPHILS 3.1 0.0 - 7.0 % [facility] RBC 3.47(L) 4.20 - 5.40 Mil/ul [facility] MCHC 32.3 30.0 - 35.0 g/dL [facility] LYMPHOCYTE ABSOLUTE 0.9(L) 1.2 - 4.0 K/ul [facility] LYMPHOCYTES 8.4(L) 24.0 - 44.0 % [facility] MCV 90.2 84.0 - 103.[address] [facility] BASOPHILS 0.2 0.0 - 1.0 % [facility] MPV 11.8 8.9 - 12.[address] [facility] BASOPHILS ABSOLUTE 0.0 0.0 - 0.2 K/ul [facility] HEMOGLOBIN 10.1(L) 12.0 - 16.0 g/dL [facility] MONOCYTES 7.2 2.0 - 10.0 % [facility] RDW 17.0(H) 11.0 - 14.5 % [facility] MONOCYTE ABSOLUTE 0.8(H) 0.1 - 0.6 K/ul [facility] WBC 11.0 4.5 - 11.0 K/ul [facility] Blood specimen (specimen) 04/06/2008 3:55 AM CDT 04/06/2008 4:00 AM CDT Marquis Scott MD HEMATOLOGY ORDERABLES Final Res ult INTERFACE SYSTEM Refer to clinic/hospital department [facility] CLIA# [id number] [facility] [place] [address] * (ABNORMAL) RENAL FUNCTION PANEL (04/06/2008 3:55 AM CDT) GLUCOSE 218(H) 70 - 110 mg/dL [facility] OSMOLALITY, CALCULATED 295 275 - 295 mOsm/Kg [facility] CHLORIDE 106 95 - 110 mEq/L [facility] ALBUMIN 3.0(L) 3.5 - 5.0 g/dL [facility] SODIUM 138 136 - 145 mEq/L [facility] BUN 22(H) 7 - 17 mg/dL [facility] CO2 30 22 - 32 mmol/l [facility] PHOSPHORUS 2.0(L) 2.5 - 4.6 mg/dL [facility] POTASSIUM 4.7 3.5 - 5.0 mEq/L [facility] ANION GAP 7(L) 9 - 20 mEq/L [facility] CREATININE 0.6(L) 0.7 - 1.2 mg/dL [facility] CALCIUM 8.2(L) 8.4 - 10.5 mg/dL [facility] Blood specimen (specimen) 04/06/2008 3:55 AM CDT 04/06/2008 4:00 AM CDT Marquis Scott MD CHEMISTRY ORDERABLES Final Resu lt Performing Organization Address City/[facility] Co de Phone Number INTERFACE SYSTEM Refer to clinic/hospital department [facility] CLIA# [id number] [address] [place] [address] * (ABNORMAL) POC GLUCOSE (04/05/2008 8:20 PM CDT) GLUCOSE POC 114(H) 60 - 100 mg/dL [facility] Venous blood specimen (specimen) 04/05/2008 8:20 PM CDT 04/06/2008 7:01 AM CDT us Riky Mejía MD POINT OF CARE TESTING Final Result Performing Organization Address [facility] Phone Number INTERFACE SYSTEM Refer to clinic/hospital department [facility] CLIA# [id number] [address] [place] [address] * (ABNORMAL) POC GLUCOSE (04/05/2008 4:50 PM CDT) GLUCOSE POC 118(H) 60 - 100 mg/dL [facility] Venous blood specimen (specimen) 04/05/2008 4:50 PM CDT 04/06/2008 7:01 AM CDT us Riky Mejía MD POINT OF CARE TESTING Final Result Performing Organization Address [facility] Phone Number INTERFACE SYSTEM Refer to clinic/hospital department [facility] CLIA# [id number] [address] [place] [address] * IV CATHETER CULTURE (04/05/2008 4:00 PM CDT) FINAL REPORT No growth INTERFA CE SYSTEM 04/05/2008 4:0 0 PM CDT 04/05/2008 4:00 PM CDT us iRky Mejía MD MICROBIOLOGY - GENERAL MINERVA ATKINSON Final Result Performing Organization Address [facility] Phone Number INTERFACE SYSTEM Refer to clinic/hospital [...] POC 120(H) 60 - 100 mg/dL [facility] Venous blood specimen (specimen) 04/05/2008 11:06 AM CDT 04/06/2008 7:01 AM CDT Riky Mejía MD POINT OF CARE TESTING Final Result INTERFACE SYSTEM Refer to clinic/hospital department [facility] CLIA# [id number] [address] [place] [address] * (ABNORMAL) POC GLUCOSE (04/05/2008 7:26 AM CDT) GLUCOSE POC 120(H) 60 - 100 mg/dL [facility] Venous blood specimen (specimen) 04/05/2008 7:26 AM CDT 04/06/2008 7:01 AM CDT Riky Mejía MD POINT OF CARE TESTING Final Result Performing Organization Address City/State/[facility] Co de Phone Number INTERFACE SYSTEM Refer to clinic/hospital department [facility] CLIA# [id number] [address] [place] [address] * PT AND APTT (04/05/2008 3:04 AM CDT) PTT 24.1 22.5 - 36.[address] [facility] Comment: Therapeutic Range: Hi-level PE/DVT heparin protocol 80.1 -95.0 sec Lo-level PE/DVT heparin protocol 67.1 - 80.0 sec Cardiac Heparin Protocol 67.1 - 85.0 sec Neuro Heparin Protocol 67.1 - 80.0 sec As of 09/25/2007 note change in APTT Normal Range. PROTIME 14.8 12.8 - 15.[address] [facility] Comment:As of 2007 not e change in normal range. INR 1.0 [facility] Comment: Expected Values for [...] Anticoagulation available from the pharmacy [facility] [phone] Blood specimen (specimen) 04/05/2008 3:04 AM CDT 04/05/2008 3:08 AM CDT Riky Mejía MD HEMATOLOGY ORDERABLES Edite d Performing Organization Address [facility] Phone Number INTERFACE SYSTEM Refer to clinic/hospital department [facility] CLIA# [id number] [address] [place] [address] * MAGNESIUM LEVEL (04/05/2008 3:04 AM CDT) MAGNESIUM 2.1 1.7 - 2.4 mg/dL [facility] Blood specimen (specimen) 04/05/2008 3:04 AM CDT 04/05/2008 3:08 AM CDT Riky Mejía MD CHEMISTRY ORDERABLES Final Result Performing Organization Address [facility] Phone Number INTERFACE SYSTEM Refer to clinic/hospital department [facility] CLIA# [id number] [address] [place] [address] * (ABNORMAL) PHOSPHORUS (04/05/2008 3:04 AM CDT) PHOSPHORUS 1.7(L) 2.5 - 4.6 mg/dL [facility] Blood specimen (specimen) 04/05/2008 3:04 AM CDT 04/05/2008 3:08 AM CDT Riky Mejía MD CHEMISTRY ORDERABLES Final Result Performing Organization Address [facility] Phone Number INTERFACE SYSTEM Refer to clinic/hospital department [facility] CLIA# [id number] [address] [place] [address] * (ABNORMAL) BASIC METABOLIC PANEL (04/05/2008 3:04 AM CDT) CO2 30 22 - 32 mmol/l [facility] OSMOLALITY, CALCULATED 307(H) 275 - 295 mOsm/Kg [facility] POTASSIUM 3.9 3.5 - 5.0 mEq/L [facility] CREATININE 0.7 0.7 - 1.2 mg/dL [facility] CALCIUM 8.2(L) 8.4 - 10.5 mg/dL [facility] GLUCOSE 126(H) 70 - 110 mg/dL [facility] CHLORIDE 112(H) 95 - 110 mEq/L [facility] SODIUM 146(H) 136 - 145 mEq/L [facility] ANION GAP 8(L) 9 - 20 mEq/L [facility] BUN 32(H) 7 - 17 mg/dL [facility] Blood specimen (specimen) 04/05/2008 3:04 AM CDT 04/05/2008 3:08 AM CDT us Riky Mejía MD CHEMISTRY ORDERABLES Final Result Performing Organization Address City/State/[facility] Co de Phone Number INTERFACE SYSTEM Refer to clinic/hospital department [facility] CLIA# [id number] [address] [place] [address] * (ABNORMAL) CBC WITH DIFFERENTIAL (04/05/2008 3:04 AM CDT) EOSINOPHIL ABSOLUTE 0.2 0.0 - 0.7 K/ul [facility] EOSINOPHILS 2.2 0.0 - 7.0 % [facility] PERIPHERAL BLOOD SMEAR REVIEW Automated Diff [facility] RBC 3.51(L) 4.20 - 5.40 Mil/ul [facility] MCHC 33.2 30.0 - 35.0 g/dL [facility] LYMPHOCYTE ABSOLUTE 1.1(L) 1.2 - 4.0 K/ul [facility] LYMPHOCYTES 9.6(L) 24.0 - 44.0 % [facility] MCV 88.3 84.0 - 103.[address] [facility] BASOPHILS 0.1 0.0 - 1.0 % [facility] MPV 11.0 8.9 - 12.[address] [facility] BASOPHILS ABSOLUTE 0.0 0.0 - 0.2 K/ul [facility] HEMOGLOBIN 10.3(L) 12.0 - 16.0 g/dL [facility] MONOCYTES 8.4 2.0 - 10.0 % [facility] RDW 17.1(H) 11.0 - 14.5 % [facility] MONOCYTE ABSOLUTE 0.9(H) 0.1 - 0.6 K/ul [facility] WBC 10.9 4.5 - 11.0 K/ul [facility] NEUTROPHILS 79.7(H) 42.2 - 75.2 % [facility] MCH 29.3 27.0 - 34.[address] [facility] NEUTROPHIL ABSOLUTE 8.7(H) 2.0 - 8.0 K/ul [facility] HEMATOCRIT 31.0(L) 36.0 - 46.0 % [facility] PLATELETS 91(L) 140 - 440 K/ul [facility] Blood specimen (specimen) 04/05/2008 3:04 AM CDT 04/05/2008 3:08 AM CDT Riky Mejía MD HEMATOLOGY ORDERABLES Final Result Performing Organization Address City/State/[facility] Co de Phone Number INTERFACE SYSTEM Refer to clinic/hospital department [facility] CLIA# [id number] [address] [place] [phone] * (ABNORMAL) RENAL FUNCTION PANEL (04/04/2008 5:04 PM CDT) ANION GAP 8(L) 9 - 20 mEq/L [facility] PHOSPHORUS 1.9(L) 2.5 - 4.6 mg/dL [facility] ALBUMIN 2.9(L) 3.5 - 5.0 g/dL [facility] CHLORIDE 117(H) 95 - 110 mEq/L [facility] CREATININE 1.2 0.7 - 1.2 mg/dL [facility] [facility] SODIUM 147(H) 136 - 145 mEq/L [facility] GLUCOSE 124(H) 70 - 110 mg/dL [facility] CO2 26 22 - 32 mmol/l [facility] CALCIUM 7.5(L) 8.4 - 10.5 mg/dL [facility] POTASSIUM 3.5 3.5 - 5.0 mEq/L [facility] OSMOLALITY, CALCULATED 309(H) 275 - 295 mOsm/Kg [facility] BUN 34(H) 7 - 17 mg/dL [facility] Blood specimen (specimen) 04/04/2008 5:04 PM CDT 04/04/2008 5:06 PM CDT us Riky Mejía MD CHEMISTRY ORDERABLES Edited INTERFACE SYSTEM Refer to clinic/hospital department [facility] CLIA# [id number] [address] [place] [address] * (ABNORMAL) CBC WITH DIFFERENTIAL (04/04/2008 5:04 PM CDT) HEMOGLOBIN 9.6(L) 12.0 - 16.0 g/dL [facility] RDW 16.8(H) 11.0 - 14.5 % [facility] MONOCYTE ABSOLUTE 0.9(H) 0.1 - 0.6 K/ul [facility] MONOCYTES 10.0 2.0 - 10.0 % [facility] WBC 9.4 4.5 - 11.0 K/ul [facility] MCH 29.0 27.0 - 34.[address] [facility] NEUTROPHIL ABSOLUTE 7.3 2.0 - 8.0 K/ul [facility] NEUTROPHILS 77.7(H) 42.2 - 75.2 % [facility] HEMATOCRIT 28.9(L) 36.0 - 46.0 % [facility] EOSINOPHILS 1.1 0.0 - 7.0 % [facility] PLATELETS 83(L) 140 - 440 K/ul [facility] PERIPHERAL BLOOD SMEAR REVIEW Automated Diff [facility] EOSINOPHIL ABSOLUTE 0.1 0.0 - 0.7 K/ul [facility] RBC 3.31(L) 4.20 - 5.40 Mil/ul [facility] LYMPHOCYTES 11.1(L) 24.0 - 44.0 % [facility] MCHC 33.2 30.0 - 35.0 g/dL [facility] LYMPHOCYTE ABSOLUTE 1.0(L) 1.2 - 4.0 K/ul [facility] MCV 87.3 84.0 - 103.[address] [facility] MPV 11.6 8.9 - 12.[address] [facility] BASOPHILS ABSOLUTE 0.0 0.0 - 0.2 K/ul [facility] BASOPHILS 0.1 0.0 - 1.0 % [facility] Blood specimen (specimen) 04/04/2008 5:04 PM CDT 04/04/2008 5:06 PM CDT us Riky Mejía MD HEMATOLOGY ORDERABLES Final Result Performing Organization Address City/State/[facility] Co de Phone Number INTERFACE SYSTEM Refer to clinic/hospital department [facility] CLIA# [id number] [facility] [place] [address] * (ABNORMAL) POC ISTAT EG 7+ (04/04/2008 9:15 AM CDT) SODIUM 145 138 - 146 mEq/L [facility] BASE EXCESS 0 -2 - 3 mmol/l [facility] PH 7.39 7.35 - 7.[address] [facility] O2 SATURATION 94(L) 95 - 98 % [facility] PO2 TEMP CORRECT 70(L) 80 - [address] [facility] PCO2 TEMP CORRECT 42 35 - [address] [facility] HEMOGLOBIN POC 8.8 +/-3 g/dL 12.0 - 16.0 g/dL [facility] POTASSIUM 3.2(L) 3.5 - 4.9 mEq/L [facility] PH TEMP CORRECT 7.39 7.35 - 7.[address] [facility] HCO3 (CALC) POC 25.0 22.0 - 26.0 mmol/l [facility] TCO2 (CALC) POC 26 23 - 27 mmol/l [facility] SPECIMEN TYPE Arterial [facility] Comment: Test Performed By [id number] Pulse OX: 94 Hemoglobin calculated from Hematocrit result PO2 70(L) 80 - [address] [facility] CALCIUM IONIZED 1.12 1.12 - 1.32 mmol/l [facility] HEMATOCRIT ABG 26(L) 38 - 51 % [facility] PCO2 POC 42 35 - [address] [facility] Arterial blood specimen (specimen) 04/04/2008 9:15 AM CDT 04/04/2008 9:18 AM CDT us Riky Mejía MD POINT OF CARE TESTING COM F inal Result Performing Organization Address [facility] de Phone Number INTERFACE SYSTEM Refer to clinic/hospital department [facility] CLIA# [id number] [address] [place] [address] * PTT (04/04/2008 4:19 AM CDT) PTT 26.4 22.5 - 36.[address] [facility] Comment: Therapeutic Range: Hi-level [...] HEMATOLOGY ORDERABLES Final Result Performing Organization Address [facility] Phone Number INTERFACE SYSTEM Refer to clinic/hospital department [facility] CLIA# [id number] [address] [place] [address] * PROTIME-INR (04/04/2008 4:19 AM CDT) PROTIME 15.2 12.8 - 15.[address] [facility] Comment:As of 2007 not e change in normal range. INR 1.1 [facility] Comment: Expected Values for [...] from the pharmacy [facility] [phone] Blood specimen (specimen) 04/04/2008 4:19 AM CDT 04/04/2008 4:23 AM CDT Riky Mejía MD HEMATOLOGY ORDERABLES Final Result Performing Organization Address [facility] Phone Number INTERFACE SYSTEM Refer to clinic/hospital department [facility] CLIA# [id number] [facility] [place] [address] * (ABNORMAL) PHOSPHORUS (04/04/2008 4:19 AM CDT) PHOSPHORUS 1.9(L) 2.5 - 4.6 mg/dL [facility] Blood specimen (specimen) 04/04/2008 4:19 AM CDT 04/04/2008 4:23 AM CDT Riky Mejía MD CHEMISTRY ORDERABLES Final Result Performing Organization Address [facility] de Phone Number INTERFACE SYSTEM Refer to clinic/hospital department [facility] CLIA# [id number] [address] [place] [address] * MAGNESIUM LEVEL (04/04/2008 4:19 AM CDT) [facility] MAGNESIUM 1.8 1.7 - 2.4 mg/dL [facility] Blood specimen (specimen) 04/04/2008 4:19 AM CDT 04/04/2008 4:23 AM CDT Riky Mejía MD CHEMISTRY ORDERABLES Final Result Performing Organization Address [facility] de Phone Number INTERFACE SYSTEM Refer to clinic/hospital department [facility] CLIA# [id number] [address] [place] [address] * (ABNORMAL) COMPREHENSIVE METABOLIC PANEL (04/04/2008 4:19 AM CDT) [facility] ALBUMIN/GLOBULIN RATIO 1.4 1.0 - 2.3 [facility] POTASSIUM 3.3(L) 3.5 - 5.0 mEq/L [facility] ANION GAP 11 9 - 20 mEq/L [facility] ALBUMIN 3.0(L) 3.5 - 5.0 g/dL [facility] CREATININE 2.1(H) 0.7 - 1.2 mg/dL [facility] ALT 20 4 - 36 IU/L [facility] CALCIUM 8.3(L) 8.4 - 10.5 mg/dL [facility] GLUCOSE 124(H) 70 - 110 mg/dL [facility] ALKALINE PHOSPHATASE 42 25 - 100 U/L [facility] CHLORIDE 111(H) 95 - 110 mEq/L [facility] OSMOLALITY, CALCULATED 310(H) 275 - 295 mOsm/Kg [facility] GLOBULIN (CALC) 2.2(L) 2.4 - 3.9 g/dL [facility] TOTAL PROTEIN 5.2(L) 6.3 - 8.2 g/dL [facility] SODIUM 146(H) 136 - 145 mEq/L [facility] BILIRUBIN TOTAL 0.9 0.3 - 1.2 mg/dL [facility] CO2 27 22 - 32 mmol/l [facility] BUN 42(H) 7 - 17 mg/dL [facility] AST 104(H) 8 - 33 U/L [facility] Blood specimen (specimen) 04/04/2008 4:19 AM CDT 04/04/2008 4:23 AM CDT Riky Mejía MD CHEMISTRY ORDERABLES Final Result INTERFACE SYSTEM Refer to clinic/hospital department [facility] CLIA# [id number] [address] [place] [address] * (ABNORMAL) CBC WITH DIFFERENTIAL (04/04/2008 4:19 AM CDT) HEMATOCRIT 28.7(L) 36.0 - 46.0 % [facility] EOSINOPHILS 0.2 0.0 - 7.0 % [facility] PLATELETS 83(L) 140 - 440 K/ul [facility] PERIPHERAL BLOOD SMEAR REVIEW Automated Diff [facility] EOSINOPHIL ABSOLUTE 0.0 0.0 - 0.7 K/ul [facility] RBC 3.33(L) 4.20 - 5.40 Mil/ul [facility] LYMPHOCYTES 12.1(L) 24.0 - 44.0 % [facility] MCHC 33.4 30.0 - 35.0 g/dL [facility] LYMPHOCYTE ABSOLUTE 1.1(L) 1.2 - 4.0 K/ul [facility] MCV 86.2 84.0 - 103.[address] [facility] MPV 11.5 8.9 - 12.[address] [facility] BASOPHILS ABSOLUTE 0.0 0.0 - 0.2 K/ul [facility] BASOPHILS 0.2 0.0 - 1.0 % [facility] HEMOGLOBIN 9.6(L) 12.0 - 16.0 g/dL [facility] RDW 16.1(H) 11.0 - 14.5 % [facility] MONOCYTE ABSOLUTE 1.0(H) 0.1 - 0.6 K/ul [facility] MONOCYTES 10.5(H) 2.0 - 10.0 % [facility] WBC 9.0 4.5 - 11.0 K/ul [facility] MCH 28.8 27.0 - 34.[address] [facility] NEUTROPHIL ABSOLUTE 6.9 2.0 - 8.0 K/ul [facility] NEUTROPHILS 77.0(H) 42.2 - 75.2 % [facility] Blood specimen (specimen) 04/04/2008 4:19 AM CDT 04/04/2008 4:23 AM CDT us Riky Mejía MD HEMATOLOGY ORDERABLES Final Result INTERFACE SYSTEM Refer to clinic/hospital department [facility] CLIA# [id number] [address] [place] [address] * (ABNORMAL) POC ISTAT EG 7+ (04/04/2008 4:07 AM CDT) POTASSIUM 3.1(L) 3.5 - 4.9 mEq/L [facility] PH TEMP CORRECT 7.45 7.35 - 7.[address] [facility] HCO3 (CALC) POC 24.5 22.0 - 26.0 mmol/l [facility] TCO2 (CALC) POC 26 23 - 27 mmol/l [facility] FIO2 50 [facility] PO2 138(H) 80 - [address] [facility] CALCIUM IONIZED 1.10(L) 1.12 - 1.32 mmol/l [facility] HEMATOCRIT ABG 25(L) 38 - 51 % [facility] PCO2 POC 35 35 - [address] [facility] SODIUM 143 138 - 146 mEq/L [facility] BASE EXCESS 1 -2 - 3 mmol/l [facility] PH 7.45 7.35 - 7.[address] [facility] O2 SATURATION 99(H) 95 - 98 % [facility] PO2 TEMP CORRECT 138(H) 80 - [address] [facility] SPECIMEN TYPE Arterial [facility] Comment: Test Performed By [id number] Tidal volume: 500 PEEP: 10 Rate: 14 Pulse OX: 100 Hemoglobin calculated from Hematocrit result PCO2 TEMP CORRECT 35 35 - [address] [facility] HEMOGLOBIN POC 8.5 +/-3 g/dL 12.0 - 16.0 g/dL [facility] Arterial blood specimen (specimen) 04/04/2008 4:07 AM CDT 04/04/2008 5:13 AM CDT us Riky Mejía MD POINT OF CARE TESTING COM F inal Result INTERFACE SYSTEM Refer to clinic/hospital department [facility] CLIA# [id number] [address] [place] [address] * MRSA CULTURE (04/03/2008 9:03 PM CDT) FINAL REPORT Culture screen for MRSA negative INTERFACE SYSTEM 04/03/2008 9:03 PM CDT 04/03/2008 9:03 PM CDT us Riky Mejía MD MICROBIOLOGY - GENERAL [facility] Final Result Performing Organization Address City/[facility]/ZIP Co de Phone Number INTERFACE [...] By: Heriberto Estrella M.D. Electronically Signed By: Heriebrto Estrella M.D. Date Signed: 04/04/08 Procedure Note [...] IONIZED 1.00(L) 1.12 - 1.32 mmol/l [facility] HEMATOCRIT ABG 24(L) 38 - 51 % [facility] PCO2 POC 36 35 - [address] [facility] SODIUM 144 138 - 146 mEq/L [facility] BASE EXCESS 0 -2 - 3 mmol/l [facility] PH 7.44 7.35 - 7.[address] [facility] O2 SATURATION 98 95 - 98 % [facility] PO2 TEMP CORRECT 101 80 - [address] [facility] SPECIMEN TYPE Arterial [facility] Comment: Test Performed By [id number] Tidal volume: 500 PEEP: 10 Rate: 16 Pulse OX: 96 Hemoglobin calculated from Hematocrit result PCO2 TEMP CORRECT 36 35 - [address] [facility] HEMOGLOBIN POC 8.2 +/-3 g/dL 12.0 - 16.0 g/dL [facility] POTASSIUM 3.2(L) 3.5 - 4.9 mEq/L [facility] PH TEMP CORRECT 7.44 7.35 - 7.[address] [facility] HCO3 (CALC) POC 23.9 22.0 - 26.0 mmol/l [facility] TCO2 (CALC) POC 25 23 - 27 mmol/l [facility] FIO2 60 [facility] PO2 101 80 - [address] [facility] Arterial blood specimen (specimen) 04/03/2008 8:35 PM CDT 04/03/2008 8:48 PM CDT Riky Mejía MD POINT OF CARE TESTING COM F inal Result Performing Organization Address [facility] de Phone Number INTERFACE SYSTEM Refer to clinic/hospital department [facility] CLIA# [id number] [address] [place] [address] * TYPE AND CROSSMATCH (04/03/2008 8:13 PM CDT) [facility] BLOOD BANK PRODUCT INTERFACE SYSTEM Blood specimen (specimen) 04/03/2008 8:13 PM CDT 04/03/2008 8:17 PM CDT Riky Mejía MD BLOOD BANK ORDERABLES Edite d Performing Organization Address [facility] Phone Number INTERFACE SYSTEM Refer to clinic/hospital department * (ABNORMAL) CBC WITH DIFFERENTIAL (04/03/2008 8:13 PM CDT) Pathologist [facility] HEMATOCRIT 26.9(L) 36.0 - 46.0 % [facility] PLATELETS 102(L) 140 - 440 K/ul [facility] EOSINOPHIL ABSOLUTE 0.0 0.0 - 0.7 K/ul [facility] EOSINOPHILS 0.1 0.0 - 7.0 % [facility] RBC 3.13(L) 4.20 - 5.40 Mil/ul [facility] MCHC 33.8 30.0 - 35.0 g/dL [facility] LYMPHOCYTE ABSOLUTE 1.1(L) 1.2 - 4.0 K/ul [facility] LYMPHOCYTES 12.2(L) 24.0 - 44.0 % [facility] MCV 85.9 84.0 - 103.[address] [facility] BASOPHILS 0.1 0.0 - 1.0 % [facility] MPV 11.7 8.9 - 12.[address] [facility] BASOPHILS ABSOLUTE 0.0 0.0 - 0.2 K/ul [facility] HEMOGLOBIN 9.1(L) 12.0 - 16.0 g/dL [facility] MONOCYTES 11.9(H) 2.0 - 10.0 % [facility] RDW 16.2(H) 11.0 - 14.5 % [facility] MONOCYTE ABSOLUTE 1.1(H) 0.1 - 0.6 K/ul [facility] WBC 9.0 4.5 - 11.0 K/ul [facility] NEUTROPHILS 75.7(H) 42.2 - 75.2 % [facility] MCH 29.1 27.0 - 34.[address] [facility] NEUTROPHIL ABSOLUTE 6.8 2.0 - 8.0 K/ul [facility] Blood specimen (specimen) 04/03/2008 8:13 PM CDT 04/03/2008 8:17 PM CDT us Riky Mejía MD HEMATOLOGY ORDERABLES Final Result INTERFACE SYSTEM Refer to clinic/hospital department [facility] CLIA# [id number] [address] [place] [address] * PTT (04/03/2008 8:13 PM CDT) PTT 28.1 22.5 - 36.[address] [facility] Comment: Therapeutic Range: Hi-level [...] HEMATOLOGY ORDERABLES Final Result Performing Organization Address [facility] Phone Number INTERFACE SYSTEM Refer to clinic/hospital department [facility] CLIA# [id number] [address] [place] [address] * (ABNORMAL) PROTIME-INR (04/03/2008 8:13 PM CDT) INR 1.2 [facility] Comment: Expected Values for [...] Anticoagulation available from the pharmacy [facility] [phone] PROTIME 16.3(H) 12.8 - 15.[address] [facility] Comment:As of 2007 not e change in normal range. Blood specimen (specimen) 04/03/2008 8:13 PM CDT 04/03/2008 8:17 PM CDT Riky Mejía MD HEMATOLOGY ORDERABLES Final Result Performing Organization Address [facility] de Phone Number INTERFACE SYSTEM Refer to clinic/hospital department [facility] CLIA# [id number] [address] [place] [address] * ANTIBODY SCREEN (04/03/2008 8:13 PM CDT) [facility] ANTIBODY SCREEN Negative [facility] Blood specimen (specimen) 04/03/2008 8:13 PM CDT 04/03/2008 8:17 PM CDT us Riky Mejía MD BLOOD BANK ORDERABLES Final Result Performing Organization Address [facility] de Phone Number INTERFACE SYSTEM Refer to clinic/hospital department [facility] CLIA# [id number] [facility] [place] [address] * ABORH TYPING (04/03/2008 8:13 PM CDT) [facility] ABO/RH TYPE O Positive [facility] Blood specimen (specimen) 04/03/2008 8:13 PM CDT 04/03/2008 8:17 PM CDT us Riky Mejía MD BLOOD BANK ORDERABLES Final Result Performing Organization Address [facility] de Phone Number INTERFACE SYSTEM Refer to clinic/hospital department [facility] CLIA# [id number] [facility] [place] [address] * (ABNORMAL) COMPREHENSIVE METABOLIC PANEL (04/03/2008 8:13 PM CDT) [facility] GLUCOSE 140(H) 70 - 110 mg/dL [facility] ALKALINE PHOSPHATASE 40 25 - 100 U/L [facility] CHLORIDE 112(H) 95 - 110 mEq/L [facility] AST 97(H) 8 - 33 U/L [facility] GLOBULIN (CALC) 1.9(L) 2.4 - 3.9 g/dL [facility] TOTAL PROTEIN 4.9(L) 6.3 - 8.2 g/dL [facility] SODIUM 146(H) 136 - 145 mEq/L [facility] ANION GAP 11 9 - 20 mEq/L [facility] CO2 26 22 - 32 mmol/l [facility] BUN 47(H) 7 - 17 mg/dL [facility] ALT 19 4 - 36 IU/L [facility] ALBUMIN/GLOBULIN RATIO 1.6 1.0 - 2.3 [facility] POTASSIUM 3.2(L) 3.5 - 5.0 mEq/L [facility] OSMOLALITY, CALCULATED 312(H) 275 - 295 mOsm/Kg [facility] ALBUMIN 3.0(L) 3.5 - 5.0 g/dL [facility] CREATININE 2.9(H) 0.7 - 1.2 mg/dL [facility] BILIRUBIN TOTAL 0.6 0.3 - 1.2 mg/dL [facility] CALCIUM 7.6(L) 8.4 - 10.5 mg/dL [facility] Blood specimen (specimen) 04/03/2008 8:13 PM CDT 04/03/2008 8:17 PM CDT Riky Mejía MD CHEMISTRY ORDERABLES Edited INTERFACE SYSTEM Refer to clinic/hospital department [facility] CLIA# [id number] [address] [place] [address] documented in this encounter Visit Diagnoses Not on filedocumented in this encounter Additional Health Concerns Infection Onset Date Last Indicated Resolved Time MRSA Comment:Kapil 10/26/15 10/27/2015 10/27/2015 documented as of this encounter Care Teams Marketing Rotation Associate Relationship Specialty Start Date End Date Jose Bowers MD [address] [place] [id number] PCP - General 12/31/05 documented as of this encounter
--- OUTSIDE RECORDS SUMMARY | 2025-02-22 13:54 | XMS_ITS | Encounter Summary ---
Author Organization [facility] Address [address] [place] [address] Care Team Providers Care Traveling Plant Operator Name Role Phone Jose Bowers MD Primary Care Provider Unavailab le Encounter Details Date Type Department Care Team (Late st Contact Info) Description 11/01/2005 Outpatient Historical [facility] [place] [address] [place] [phone] Jose Bowers MD [address] [place] [address] Unspecified Paralysis (CMS/HCC) (Primary Dx); Neurogenic Bladder, NOS Social History Tobacco Use Types Packs/Day Years Used Date Smoking Tobacco: Never Assessed Comments Unknown Sex and Gender Information Value Date Recorded Sex Assigned at Not on file 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
--- OUTSIDE RECORDS SUMMARY | 2025-02-22 13:54 | XMS_ITS | Encounter Summary ---
Author Organization [facility] Address [address] [place] [address] Care Team Providers Care Hardwood Finisher Name Role Phone Jose Bowers MD Primary Care Provider Unavailab le Encounter Details Date Type Department Care Team (Late st Contact Info) Description 07/04/2004 Outpatient Historical [facility] Calvin Odonnell MD [address] [place] [address] [id number] Social History Tobacco Use Types Packs/Day Years Used Date Smoking Tobacco: Never Assessed Comments Unknown Sex and Gender Information Value Date Recorded Sex Assigned at Not on file 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
--- OUTSIDE RECORDS SUMMARY | 2025-02-22 13:54 | XMS_ITS | Encounter Summary ---
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 Gender Identity Not on file Sexual Orientation [...] GLUCOSE POC 117(H) 60 - 100 mg/dL [facility] Venous blood specimen (specimen) 04/28/2008 12:22 PM CDT 04/29/2008 1:49 AM CDT us Riky Mejía MD POINT OF CARE TESTING Final Result Performing Organization Address [facility] de Phone Number INTERFACE SYSTEM Refer to clinic/hospital department [facility] CLIA# [id number] [address] [place] [address] * (ABNORMAL) POC GLUCOSE (04/28/2008 6:07 AM CDT) GLUCOSE POC 132(H) 60 - 100 mg/dL [facility] Venous blood specimen (specimen) 04/28/2008 6:07 AM CDT 04/29/2008 1:56 AM CDT us Riky Mejía MD POINT OF CARE TESTING Final Result Performing Organization Address [facility] Phone Number INTERFACE SYSTEM Refer to clinic/hospital department [facility] CLIA# [id number] [facility] [place] [address] * (ABNORMAL) BASIC METABOLIC PANEL (04/28/2008 5:15 AM CDT) ANION GAP 10 9 - 20 mEq/L [facility] SODIUM 137 136 - 145 mEq/L [facility] BUN 13 7 - 17 mg/dL [facility] CO2 30 22 - 32 mmol/l [facility] POTASSIUM 4.5 3.5 - 5.0 mEq/L [facility] Comment: Specimen slightly hemolyzed OSMOLALITY, CALCULATED 284 275 - 295 mOsm/Kg [facility] CREATININE 0.6(L) 0.7 - 1.2 mg/dL [facility] CALCIUM 9.0 8.4 - 10.5 mg/dL [facility] GLUCOSE 112(H) 70 - 110 mg/dL [facility] CHLORIDE 102 95 - 110 mEq/L [facility] Blood specimen (specimen) 04/28/2008 5:15 AM CDT 04/28/2008 5:29 AM CDT us Riky Mejía MD CHEMISTRY ORDERABLES Final Result Performing Organization Address [facility] de Phone Number INTERFACE SYSTEM Refer to clinic/hospital department [facility] CLIA# [id number] [address] [place] [address] * (ABNORMAL) POC GLUCOSE (04/27/2008 8:55 PM CDT) GLUCOSE POC 133(H) 60 - 100 mg/dL [facility] Venous blood specimen (specimen) 04/27/2008 8:55 PM CDT 04/28/2008 2:27 AM CDT us Riky Mejía MD POINT OF CARE TESTING Final Result Performing Organization Address [facility] Phone Number INTERFACE SYSTEM Refer to clinic/[facility] department [facility] CLIA# [id number] [facility] [place] [address] * (ABNORMAL) POC GLUCOSE (04/27/2008 4:38 PM CDT) GLUCOSE POC 112(H) 60 - 100 mg/dL [facility] COMMENT POC Follow Protocol [facility] Venous blood specimen (specimen) 04/27/2008 4:38 PM CDT 04/28/2008 12:35 AM CDT Riky Mejía MD POINT OF CARE TESTING Final Result Performing Organization Address [facility] de Phone Number INTERFACE SYSTEM Refer to clinic/hospital department [facility] CLIA# [id number] [address] [place] [address] * (ABNORMAL) POC GLUCOSE (04/27/2008 11:23 AM CDT) GLUCOSE POC 143(H) 60 - 100 mg/dL [facility] Venous blood specimen (specimen) 04/27/2008 11:23 AM CDT 04/28/2008 2:23 AM CDT Riky Mejía MD POINT OF CARE TESTING Final Result Performing Organization Address [facility] de Phone Number INTERFACE SYSTEM Refer to clinic/hospital department [facility] CLIA# [id number] [address] [place] [address] * (ABNORMAL) POC GLUCOSE (04/27/2008 6:38 AM CDT) GLUCOSE POC 122(H) 60 - 100 mg/dL [facility] Venous blood specimen (specimen) 04/27/2008 6:38 AM CDT 04/28/2008 2:33 AM CDT Riky Mejía MD POINT OF CARE TESTING Final Result Performing Organization Address [facility] de Phone Number INTERFACE SYSTEM Refer to clinic/[facility] CLIA# [id number] [address] [place] [address] * (ABNORMAL) POC GLUCOSE (04/26/2008 8:43 PM CDT) GLUCOSE POC 128(H) 60 - 100 mg/dL [facility] Venous blood specimen (specimen) 04/26/2008 8:43 PM CDT 04/27/2008 2:25 AM CDT Riky Mejía MD POINT OF CARE TESTING Final Result Performing Organization Address [facility] de Phone Number INTERFACE SYSTEM Refer to clinic/hospital department [facility] CLIA# [id number] [address] [place] [address] * (ABNORMAL) POC GLUCOSE (04/26/2008 4:53 PM CDT) GLUCOSE POC 113(H) 60 - 100 mg/dL [facility] Venous blood specimen (specimen) 04/26/2008 4:53 PM CDT 04/27/2008 2:26 AM CDT Riky Mejía MD POINT OF CARE TESTING Final Result Performing Organization Address [facility] Phone Number INTERFACE SYSTEM Refer to clinic/hospital department [facility] CLIA# [id number] [address] [place] [address] * (ABNORMAL) POC GLUCOSE (04/26/2008 11:28 AM CDT) GLUCOSE POC 125(H) 60 - 100 mg/dL [facility] Venous blood specimen (specimen) 04/26/2008 11:28 AM CDT 04/27/2008 2:25 AM CDT Riky Mejía MD POINT OF CARE TESTING Final Result Performing Organization Address [facility] de Phone Number INTERFACE SYSTEM Refer to clinic/hospital department [facility] CLIA# [id number] [address] [place] [address] * (ABNORMAL) POC GLUCOSE (04/26/2008 5:36 AM CDT) GLUCOSE POC 123(H) 60 - 100 mg/dL [facility] Venous blood specimen (specimen) 04/26/2008 5:36 AM CDT 04/27/2008 2:25 AM CDT Riky Mejía MD POINT OF CARE TESTING Final Result Performing Organization Address [facility] Phone Number INTERFACE SYSTEM Refer to clinic/hospital department [facility] CLIA# [id number] [address] [place] [address] * (ABNORMAL) TRANSFERRIN (04/26/2008 4:02 AM CDT) TRANSFERRIN 121.0(L) 204.0 - 376.0 mg/dL [facility] Blood specimen (specimen) 04/26/2008 4:02 AM CDT 04/26/2008 4:19 AM CDT Riky Mejía MD CHEMISTRY ORDERABLES Final Result Performing Organization Address [facility] Phone Number INTERFACE SYSTEM Refer to clinic/hospital department [facility] CLIA# [id number] [address] [place] [address] * PREALBUMIN (04/26/2008 4:02 AM CDT) PREALBUMIN 22.2 14.0 - 32.0 mg/dL [facility] Blood specimen (specimen) 04/26/2008 4:02 AM CDT 04/26/2008 4:19 AM CDT Riky Mejía MD CHEMISTRY ORDERABLES Final Result Performing Organization Address [facility] Phone Number INTERFACE SYSTEM Refer to clinic/[facility] CLIA# [id number] [address] [place] [address] * (ABNORMAL) PROTIME-INR (04/26/2008 4:02 AM CDT) PROTIME 16.1(H) 12.8 - 15.8 Secs [facility] Comment:As of 2007 not e change in normal range. INR 1.2 [facility] Comment: Expected Values for INR: DVT/PE Goal INR 2.5; range 2.0 - 3.0 Valve Replacement Tissue Goal INR 2.5; range 2.0 - 3.0 Mechanical Goal INR 3.0; range 2.5 - 3.5 POST-VA Goal INR 2.5; range 2.0 - 3.0 or Goal 3.0; range 2.5 - 3.5 Atrial Fibrillation Goal INR 2.5; range 2.0 - 3.0 Ischemic Stroke Goal INR 2.5; range 2.0 - 3.0 For additional information see Guidelines for Anticoagulation available from the pharmacy [facility]. [phone] Blood specimen (specimen) 04/26/2008 4:02 AM CDT 04/26/2008 4:19 AM CDT Riky Mejía MD HEMATOLOGY ORDERABLES Final Result INTERFACE SYSTEM Refer to clinic/hospital department [facility] CLIA# [id number] [address] [place] [address] * (ABNORMAL) CBC WITH DIFFERENTIAL (04/26/2008 4:02 AM CDT) BASOPHILS ABSOLUTE 0.1 0.0 - 0.2 K/ul [facility] HEMOGLOBIN 10.3(L) 12.0 - 16.0 g/dL [facility] MONOCYTES 11.6(H) 2.0 - 10.0 % [facility] RDW 18.2(H) 11.0 - 14.5 % [facility] MONOCYTE ABSOLUTE 0.9(H) 0.1 - 0.6 K/ul [facility] WBC 8.1 4.5 - 11.0 K/ul [facility] NEUTROPHILS 67.2 42.2 - 75.2 % [facility] MCH 29.3 27.0 - 34.0 pg [facility] NEUTROPHIL ABSOLUTE 5.5 2.0 - 8.0 K/ul [facility] HEMATOCRIT 33.7(L) 36.0 - 46.0 % [facility] PLATELETS 436 140 - 440 K/ul [facility] EOSINOPHIL ABSOLUTE 0.3 0.0 - 0.7 K/ul [facility] EOSINOPHILS 4.0 0.0 - 7.0 % [facility] PERIPHERAL BLOOD SMEAR REVIEW Automated Diff [facility] RBC 3.51(L) 4.20 - 5.40 Mil/ul [facility] MCHC 30.6 30.0 - 35.0 g/dL [facility] LYMPHOCYTE ABSOLUTE 1.3 1.2 - 4.0 K/ul [facility] LYMPHOCYTES 16.2(L) 24.0 - 44.0 % [facility] MCV 96.0 84.0 - 103.0 Fl [facility] BASOPHILS 1.0 0.0 - 1.0 % [facility] MPV 10.3 8.9 - 12.8 Fl [facility] Blood specimen (specimen) 04/26/2008 4:02 AM CDT 04/26/2008 4:19 AM CDT Narrative INTERFACE SYSTEM - 04/26/2008 4:35 AM CDT cbc with diff in am Riky Mejía MD HEMATOLOGY ORDERABLES Final Result INTERFACE SYSTEM Refer to clinic/hospital department [facility] CLIA# [id number] [address] [place] [address] * MAGNESIUM LEVEL (04/26/2008 4:02 AM CDT) MAGNESIUM 2.0 1.7 - 2.4 mg/dL [facility] Blood specimen (specimen) 04/26/2008 4:02 AM CDT 04/26/2008 4:19 AM CDT us Riky Mejía MD CHEMISTRY ORDERABLES Final Result Performing Organization Address [facility] Phone Number INTERFACE SYSTEM Refer to clinic/hospital department [facility] CLIA# [id number] [address] [place] [address] * TRIGLYCERIDE (04/26/2008 4:02 AM CDT) [facility] TRIGLYCERIDE 137 0 - 150 mg/dL [facility] Comment: On 11/10/2007, [facility] changed the triglyceride reference range to 0-150 mg/dl. This is the recommendation of the National Cholesterol Education Program (NCEP-ATPIII). Blood specimen (specimen) 04/26/2008 4:02 AM CDT 04/26/2008 4:19 AM CDT Riky Mejía MD CHEMISTRY ORDERABLES Final Result Performing Organization Address [facility] Phone Number INTERFACE SYSTEM Refer to clinic/hospital department [facility] CLIA# [id number] [address] [place] [address] * PHOSPHORUS (04/26/2008 4:02 AM CDT) [facility] PHOSPHORUS 4.1 2.5 - 4.6 mg/dL [facility] Blood specimen (specimen) 04/26/2008 4:02 AM CDT 04/26/2008 4:19 AM CDT Riky Mejía MD CHEMISTRY ORDERABLES Final Result Performing Organization Address [facility] Phone Number INTERFACE SYSTEM Refer to clinic/[facility] CLIA# [id number] [address] [place] [address] * (ABNORMAL) COMPREHENSIVE METABOLIC PANEL (04/26/2008 4:02 AM CDT) Pathologist [facility] OSMOLALITY, CALCULATED 284 275 - 295 mOsm/Kg [facility] GLOBULIN (CALC) 3.4 2.4 - 3.9 g/dL [facility] TOTAL PROTEIN 6.6 6.3 - 8.2 g/dL [facility] SODIUM 137 136 - 145 mEq/L [facility] BILIRUBIN TOTAL 0.8 0.3 - 1.2 mg/dL [facility] CO2 33(H) 22 - 32 mmol/l [facility] BUN 15 7 - 17 mg/dL [facility] AST 29 8 - 33 U/L [facility] ALBUMIN/GLOBULIN RATIO 0.9(L) 1.0 - 2.3 [facility] POTASSIUM 3.9 3.5 - 5.0 mEq/L [facility] ANION GAP 7(L) 9 - 20 mEq/L [facility] ALBUMIN 3.2(L) 3.5 - 5.0 g/dL [facility] CREATININE 0.6(L) 0.7 - 1.2 mg/dL [facility] ALT 27 4 - 36 IU/L [facility] CALCIUM 8.7 8.4 - 10.5 mg/dL [facility] GLUCOSE 110 70 - 110 mg/dL [facility] ALKALINE PHOSPHATASE 105(H) 25 - 100 U/L [facility] CHLORIDE 101 95 - 110 mEq/L [facility] Blood specimen (specimen) 04/26/2008 4:02 AM CDT 04/26/2008 4:19 AM CDT us Riky Mejía MD CHEMISTRY ORDERABLES Final Result INTERFACE SYSTEM Refer to clinic/hospital department [facility] CLIA# [id number] [address] [place] [address] * (ABNORMAL) BASIC METABOLIC PANEL (04/26/2008 4:02 AM CDT) GLUCOSE 110 70 - 110 mg/dL [facility] CHLORIDE 100 95 - 110 mEq/L [facility] ANION GAP 9 9 - 20 mEq/L [facility] SODIUM 137 136 - 145 mEq/L [facility] BUN 16 7 - 17 mg/dL [facility] CO2 32 22 - 32 mmol/l [facility] POTASSIUM 4.3 3.5 - 5.0 mEq/L [facility] OSMOLALITY, CALCULATED 285 275 - 295 mOsm/Kg [facility] CREATININE 0.5(L) 0.7 - 1.2 mg/dL [facility] CALCIUM 8.8 8.4 - 10.5 mg/dL [facility] Blood specimen (specimen) 04/26/2008 4:02 AM CDT 04/26/2008 4:19 AM CDT Riky Mejía MD CHEMISTRY ORDERABLES Final Result Performing Organization Address [facility] Phone Number INTERFACE SYSTEM Refer to clinic/hospital department [facility] CLIA# [id number] [address] [place] [address] * (ABNORMAL) POC GLUCOSE (04/25/2008 8:51 PM CDT) GLUCOSE POC 107(H) 60 - 100 mg/dL [facility] Venous blood specimen (specimen) 04/25/2008 8:51 PM CDT 04/26/2008 1:42 AM CDT Riky Mejía MD POINT OF CARE TESTING Final Result Performing Organization Address [facility] Phone Number INTERFACE SYSTEM Refer to clinic/hospital department [facility] CLIA# [id number] [address] [place] [address] * (ABNORMAL) POC GLUCOSE (04/25/2008 5:10 PM CDT) GLUCOSE POC 102(H) 60 - 100 mg/dL [facility] Venous blood specimen (specimen) 04/25/2008 5:10 PM CDT 04/26/2008 1:42 AM CDT Riky Mejía MD POINT OF CARE TESTING Final Result Performing Organization Address [facility] Phone Number INTERFACE SYSTEM Refer to clinic/hospital department [facility] CLIA# [id number] [address] [place] [address] * (ABNORMAL) POC GLUCOSE (04/25/2008 10:45 AM CDT) GLUCOSE POC 114(H) 60 - 100 mg/dL [facility] Venous blood specimen (specimen) 04/25/2008 10:45 AM CDT 04/26/2008 1:42 AM CDT Riky Mejía MD POINT OF CARE TESTING Final Result Performing Organization Address [facility] Phone Number INTERFACE SYSTEM Refer to clinic/hospital department [facility] CLIA# [id number] [address] [place] [address] * (ABNORMAL) POC GLUCOSE (04/25/2008 6:00 AM CDT) GLUCOSE POC 113(H) 60 - 100 mg/dL [facility] Venous blood specimen (specimen) 04/25/2008 6:00 AM CDT 04/26/2008 1:45 AM CDT Riky Mejía MD POINT OF CARE TESTING Final Result Performing Organization Address [facility] de Phone Number INTERFACE SYSTEM Refer to clinic/hospital department [facility] CLIA# [id number] [address] [place] [address] * (ABNORMAL) BASIC METABOLIC PANEL (04/25/2008 3:28 AM CDT) OSMOLALITY, CALCULATED 286 275 - 295 mOsm/Kg [facility] CREATININE 0.5(L) 0.7 - 1.2 mg/dL [facility] CALCIUM 8.9 8.4 - 10.5 mg/dL [facility] GLUCOSE 115(H) 70 - 110 mg/dL [facility] CHLORIDE 101 95 - 110 mEq/L [facility] SODIUM 136 136 - 145 mEq/L [facility] ANION GAP 10 9 - 20 mEq/L [facility] BUN 20(H) 7 - 17 mg/dL [facility] CO2 30 22 - 32 mmol/l [facility] POTASSIUM 4.9 3.5 - 5.0 mEq/L [facility] Blood specimen (specimen) 04/25/2008 3:28 AM CDT 04/25/2008 3:31 AM CDT Riky Mejía MD CHEMISTRY ORDERABLES Final Result Performing Organization Address [facility] Phone Number INTERFACE SYSTEM Refer to clinic/hospital department [facility] CLIA# [id number] [address] [place] [address] * (ABNORMAL) POC GLUCOSE (04/24/2008 8:30 PM CDT) GLUCOSE POC 121(H) 60 - 100 mg/dL [facility] Venous blood specimen (specimen) 04/24/2008 8:30 PM CDT 04/25/2008 1:43 AM CDT Riky Mejía MD POINT OF CARE TESTING Final Result Performing Organization Address [facility] Phone Number INTERFACE SYSTEM Refer to clinic/hospital department [facility] CLIA# [id number] [address] [place] [address] * (ABNORMAL) POC GLUCOSE (04/24/2008 5:10 PM CDT) GLUCOSE POC 109(H) 60 - 100 mg/dL [facility] Venous blood specimen (specimen) 04/24/2008 5:10 PM CDT 04/25/2008 1:43 AM CDT Riky Mejía MD POINT OF CARE TESTING Final Result Performing Organization Address [facility] de Phone Number INTERFACE SYSTEM Refer to clinic/hospital department [facility] CLIA# [id number] [address] [place] [address] * (ABNORMAL) POC GLUCOSE (04/24/2008 1:53 PM CDT) GLUCOSE POC 113(H) 60 - 100 mg/dL [facility] Venous blood specimen (specimen) 04/24/2008 1:53 PM CDT 04/25/2008 1:50 AM CDT Riky Mejía MD POINT OF CARE TESTING Final Result Performing Organization Address [facility] de Phone Number INTERFACE SYSTEM Refer to clinic/hospital department [facility] CLIA# [id number] [address] [place] [address] * (ABNORMAL) POC GLUCOSE (04/24/2008 11:40 AM CDT) GLUCOSE POC 160(H) 60 - 100 mg/dL [facility] Venous blood specimen (specimen) 04/24/2008 11:40 AM CDT 04/25/2008 1:50 AM CDT Riky Mejía MD POINT OF CARE TESTING Final Result Performing Organization Address [facility] de Phone Number INTERFACE SYSTEM Refer to clinic/hospital department [facility] CLIA# [id number] [address] [place] [address] * (ABNORMAL) POC GLUCOSE (04/24/2008 5:45 AM CDT) GLUCOSE POC 129(H) 60 - 100 mg/dL [facility] Venous blood specimen (specimen) 04/24/2008 5:45 AM CDT 04/25/2008 1:46 AM CDT Riky Mejía MD POINT OF CARE TESTING Final Result INTERFACE SYSTEM Refer to clinic/hospital department [facility] CLIA# [id number] [address] [place] [address] * (ABNORMAL) CBC WITH DIFFERENTIAL (04/24/2008 3:09 AM CDT) WBC 10.5 4.5 - 11.0 K/ul [facility] MCH 29.4 27.0 - 34.0 pg [facility] NEUTROPHIL ABSOLUTE 7.1 2.0 - 8.0 K/ul [facility] NEUTROPHILS 67.1 42.2 - 75.2 % [facility] HEMATOCRIT 32.8(L) 36.0 - 46.0 % [facility] EOSINOPHILS 4.3 0.0 - 7.0 % [facility] PLATELETS 491(H) 140 - 440 K/ul [facility] PERIPHERAL BLOOD SMEAR REVIEW Automated Diff [facility] EOSINOPHIL ABSOLUTE 0.5 0.0 - 0.7 K/ul [facility] RBC 3.44(L) 4.20 - 5.40 Mil/ul [facility] LYMPHOCYTES 17.3(L) 24.0 - 44.0 % [facility] MCHC 30.8 30.0 - 35.0 g/dL [facility] LYMPHOCYTE ABSOLUTE 1.8 1.2 - 4.0 K/ul [facility] MCV 95.3 84.0 - 103.0 Fl [facility] MPV 10.4 8.9 - 12.8 Fl [facility] BASOPHILS ABSOLUTE 0.1 0.0 - 0.2 K/ul [facility] BASOPHILS 1.3(H) 0.0 - 1.0 % [facility] HEMOGLOBIN 10.1(L) 12.0 - 16.0 g/dL [facility] RDW 17.8(H) 11.0 - 14.5 % [facility] MONOCYTE ABSOLUTE 1.1(H) 0.1 - 0.6 K/ul [facility] MONOCYTES 10.0 2.0 - 10.0 % [facility] Blood specimen (specimen) 04/24/2008 3:09 AM CDT 04/24/2008 3:21 AM CDT Riky Mejía MD HEMATOLOGY ORDERABLES Final Result Performing Organization Address [facility] Phone Number INTERFACE SYSTEM Refer to clinic/hospital department [facility] CLIA# [id number] [address] [place] [address] * (ABNORMAL) BASIC METABOLIC PANEL (04/24/2008 3:09 AM CDT) BUN 20(H) 7 - 17 mg/dL [facility] CO2 31 22 - 32 mmol/l [facility] POTASSIUM 4.6 3.5 - 5.0 mEq/L [facility] OSMOLALITY, CALCULATED 286 275 - 295 mOsm/Kg [facility] CREATININE 0.5(L) 0.7 - 1.2 mg/dL [facility] CALCIUM 8.8 8.4 - 10.5 mg/dL [facility] GLUCOSE 106 70 - 110 mg/dL [facility] CHLORIDE 100 95 - 110 mEq/L [facility] ANION GAP 11 9 - 20 mEq/L [facility] SODIUM 137 136 - 145 mEq/L [facility] Blood specimen (specimen) 04/24/2008 3:09 AM CDT 04/24/2008 3:21 AM CDT Riky Mejía MD CHEMISTRY ORDERABLES Final Result Performing Organization Address [facility] Phone Number INTERFACE SYSTEM Refer to clinic/hospital department [facility] CLIA# [id number] [address] [place] [address] * (ABNORMAL) POC GLUCOSE (04/23/2008 8:56 PM CDT) GLUCOSE POC 132(H) 60 - 100 mg/dL [facility] Venous blood specimen (specimen) 04/23/2008 8:56 PM CDT 04/24/2008 1:58 AM CDT us Riky Mejía MD POINT OF CARE TESTING Final Result Performing Organization Address [facility] de Phone Number INTERFACE SYSTEM Refer to clinic/hospital department [facility] CLIA# [id number] [address] [place] [address] * (ABNORMAL) POC GLUCOSE (04/23/2008 4:37 PM CDT) GLUCOSE POC 129(H) 60 - 100 mg/dL [facility] Venous blood specimen (specimen) 04/23/2008 4:37 PM CDT 04/24/2008 1:58 AM CDT us Riky eMjía MD POINT OF CARE TESTING Final Result Performing Organization Address [facility] Phone Number INTERFACE SYSTEM Refer to clinic/hospital department [facility] CLIA# [id number] [address] [place] [address] * (ABNORMAL) POC GLUCOSE (04/23/2008 11:23 AM CDT) GLUCOSE POC 147(H) 60 - 100 mg/dL [facility] Venous blood specimen (specimen) 04/23/2008 11:23 AM CDT 04/24/2008 7:04 AM CDT us Riky Mejía MD POINT OF CARE TESTING Final Result Performing Organization Address City/[facility] de Phone Number INTERFACE SYSTEM Refer to clinic/hospital department [facility] CLIA# [id number] [address] [place] [address] * (ABNORMAL) POC GLUCOSE (04/23/2008 7:53 AM CDT) GLUCOSE POC 160(H) 60 - 100 mg/dL [facility] Venous blood specimen (specimen) 04/23/2008 7:53 AM CDT 04/24/2008 7:05 AM CDT Riky Mejía MD POINT OF CARE TESTING Final Result Performing Organization Address [facility] Phone Number INTERFACE SYSTEM Refer to clinic/hospital department [facility] CLIA# [id number] [address] [place] [address] * (ABNORMAL) BASIC METABOLIC PANEL (04/23/2008 3:33 AM CDT) BUN 18(H) 7 - 17 mg/dL [facility] CO2 30 22 - 32 mmol/l [facility] POTASSIUM 4.2 3.5 - 5.0 mEq/L [facility] OSMOLALITY, CALCULATED 283 275 - 295 mOsm/Kg [facility] CREATININE 0.4(L) 0.7 - 1.2 mg/dL [facility] CALCIUM 8.4 8.4 - 10.5 mg/dL [facility] GLUCOSE 131(H) 70 - 110 mg/dL [facility] CHLORIDE 104 95 - 110 mEq/L [facility] ANION GAP 5(L) 9 - 20 mEq/L [facility] SODIUM 135(L) 136 - 145 mEq/L [facility] Blood specimen (specimen) 04/23/2008 3:33 AM CDT 04/23/2008 3:39 AM CDT Riky Mejía MD CHEMISTRY ORDERABLES Final Result Performing Organization Address [facility] Phone Number INTERFACE SYSTEM Refer to clinic/hospital department [facility] CLIA# [id number] [address] [place] [address] * (ABNORMAL) POC GLUCOSE (04/23/2008 3:22 AM CDT) GLUCOSE POC 130(H) 60 - 100 mg/dL [facility] Venous blood specimen (specimen) 04/23/2008 3:22 AM CDT 04/24/2008 7:07 AM CDT Riky Mejía MD POINT OF CARE TESTING Final Result Performing Organization Address City/[facility] de Phone Number INTERFACE SYSTEM Refer to clinic/hospital department [facility] CLIA# [id number] [address] [place] [address] * (ABNORMAL) POC GLUCOSE (04/22/2008 11:30 PM CDT) GLUCOSE POC 155(H) 60 - 100 mg/dL [facility] Venous blood specimen (specimen) 04/22/2008 11:30 PM CDT 04/23/2008 7:12 AM CDT Riky Mjeía MD POINT OF CARE TESTING Final Result Performing Organization Address [facility] Phone Number INTERFACE SYSTEM Refer to clinic/hospital department [facility] CLIA# [id number] [address] [place] [address] * (ABNORMAL) POC GLUCOSE (04/22/2008 7:54 PM CDT) GLUCOSE POC 158(H) 60 - 100 mg/dL [facility] Venous blood specimen (specimen) 04/22/2008 7:54 PM CDT 04/23/2008 3:46 PM CDT Riky Mejía MD POINT OF CARE TESTING Final Result Performing Organization Address City/[facility] de Phone Number INTERFACE SYSTEM Refer to clinic/hospital department [facility] CLIA# [id number] [address] [place] [address] * (ABNORMAL) POC GLUCOSE (04/22/2008 4:09 PM CDT) GLUCOSE POC 129(H) 60 - 100 mg/dL [facility] Venous blood specimen (specimen) 04/22/2008 4:09 PM CDT 04/23/2008 3:46 PM CDT Riky Mejía MD POINT OF CARE TESTING Final Result Performing Organization Address City/[facility] de Phone Number INTERFACE SYSTEM Refer to clinic/hospital department [facility] CLIA# [id number] [address] [place] [address] * (ABNORMAL) POC GLUCOSE (04/22/2008 11:36 AM CDT) GLUCOSE POC 118(H) 60 - 100 mg/dL [facility] Venous blood specimen (specimen) 04/22/2008 11:36 AM CDT 04/23/2008 7:12 AM CDT Riky Mejía MD POINT OF CARE TESTING Final Result Performing Organization Address [facility] Phone Number INTERFACE SYSTEM Refer to clinic/hospital department [facility] CLIA# [id number] [address] [place] [address] * (ABNORMAL) POC GLUCOSE (04/22/2008 7:55 AM CDT) GLUCOSE POC 160(H) 60 - 100 mg/dL [facility] Venous blood specimen (specimen) 04/22/2008 7:55 AM CDT 04/24/2008 7:07 AM CDT Riky Mejía MD POINT OF CARE TESTING Final Result Performing Organization Address City/[facility] de Phone Number INTERFACE SYSTEM Refer to clinic/hospital department [facility] CLIA# [id number] [address] [place] [address] * (ABNORMAL) BASIC METABOLIC PANEL (04/22/2008 3:26 AM CDT) BUN 15 7 - 17 mg/dL [facility] CO2 28 22 - 32 mmol/l [facility] OSMOLALITY, CALCULATED 300(H) 275 - 295 mOsm/Kg [facility] POTASSIUM 3.0(L) 3.5 - 5.0 mEq/L [facility] CREATININE 0.2(L) 0.7 - 1.2 mg/dL [facility] CALCIUM 6.7(L) 8.4 - 10.5 mg/dL [facility] GLUCOSE 109 70 - 110 mg/dL [facility] CHLORIDE 109 95 - 110 mEq/L [facility] SODIUM 147(H) 136 - 145 mEq/L [facility] ANION GAP 13 9 - 20 mEq/L [facility] Blood specimen (specimen) 04/22/2008 3:26 AM CDT 04/22/2008 3:31 AM CDT Riky Mejía MD CHEMISTRY ORDERABLES Final Result Performing Organization Address City/[facility] Co pr Phone Number INTERFACE SYSTEM Refer to clinic/hospital department [facility] CLIA# [id number] [address] [place] [address] * POC GLUCOSE (04/22/2008 3:17 AM CDT) GLUCOSE POC 73 60 - 100 mg/dL [facility] Venous blood specimen (specimen) 04/22/2008 3:17 AM CDT 04/22/2008 6:51 AM CDT Riky Mejía MD POINT OF CARE TESTING Final Result Performing Organization Address [facility] Phone Number INTERFACE SYSTEM Refer to clinic/hospital department [facility] CLIA# [id number] [address] [place] [address] * (ABNORMAL) POC GLUCOSE (04/21/2008 11:17 PM CDT) GLUCOSE POC 130(H) 60 - 100 mg/dL [facility] Venous blood specimen (specimen) 04/21/2008 11:17 PM CDT 04/22/2008 6:51 AM CDT us Riky Mejía MD POINT OF CARE TESTING Final Result Performing Organization Address City/[facility] de Phone Number INTERFACE SYSTEM Refer to clinic/hospital department [facility] CLIA# [id number] [address] [place] [address] * (ABNORMAL) POC GLUCOSE (04/21/2008 7:59 PM CDT) GLUCOSE POC 135(H) 60 - 100 mg/dL [facility] Venous blood specimen (specimen) 04/21/2008 7:59 PM CDT 04/22/2008 6:51 AM CDT us Riky Mejía MD POINT OF CARE TESTING Final Result Performing Organization Address [facility] de Phone Number INTERFACE SYSTEM Refer to clinic/hospital department [facility] CLIA# [id number] [address] [place] [address] * (ABNORMAL) POC GLUCOSE (04/21/2008 4:29 PM CDT) GLUCOSE POC 144(H) 60 - 100 mg/dL [facility] COMMENT POC Follow Protocol [facility] Venous blood specimen (specimen) 04/21/2008 4:29 PM CDT 04/22/2008 6:51 AM CDT us Riky Mejía MD POINT OF CARE TESTING Final Result Performing Organization Address City/[facility] de Phone Number INTERFACE SYSTEM Refer to clinic/hospital department [facility] CLIA# [id number] [address] [place] [address] * (ABNORMAL) POC GLUCOSE (04/21/2008 1:17 PM CDT) COMMENT POC Follow Protocol [facility] GLUCOSE POC 145(H) 60 - 100 mg/dL [facility] Venous blood specimen (specimen) 04/21/2008 1:17 PM CDT 04/22/2008 6:51 AM CDT Riky Mejía MD POINT OF CARE TESTING Final Result Performing Organization Address [facility] Phone Number INTERFACE SYSTEM Refer to clinic/hospital department [facility] CLIA# [id number] [address] [place] [address] * POTASSIUM LEVEL (04/21/2008 7:33 AM CDT) POTASSIUM 4.2 3.5 - 5.0 mEq/L [facility] Comment: Specimen slightly hemolyzed Blood specimen (specimen) 04/21/2008 7:33 AM CDT 04/21/2008 7:33 AM CDT Riky Mejía MD CHEMISTRY ORDERABLES Final Result Performing Organization Address [facility] Phone Number INTERFACE SYSTEM Refer to clinic/hospital department [facility] CLIA# [id number] [address] [place] [address] * (ABNORMAL) POC GLUCOSE (04/21/2008 7:26 AM CDT) GLUCOSE POC 146(H) 60 - 100 mg/dL [facility] Venous blood specimen (specimen) 04/21/2008 7:26 AM CDT 04/22/2008 6:51 AM CDT Riky Mejía MD POINT OF CARE TESTING Final Result Performing Organization Address [facility] Phone Number INTERFACE SYSTEM Refer to clinic/hospital department [facility] CLIA# [id number] [address] [place] [address] * (ABNORMAL) POC GLUCOSE (04/21/2008 2:58 AM CDT) Pathologist [facility] GLUCOSE POC 128(H) 60 - 100 mg/dL [facility] Venous blood specimen (specimen) 04/21/2008 2:58 AM CDT 04/21/2008 7:32 AM CDT Riky Mejía MD POINT OF CARE TESTING Final Result Performing Organization Address [facility] de Phone Number INTERFACE SYSTEM Refer to clinic/hospital department [facility] CLIA# [id number] [address] [place] [address] * (ABNORMAL) BASIC METABOLIC PANEL (04/21/2008 2:00 AM CDT) Pathologist [facility] ANION GAP 7(L) 9 - 20 mEq/L [facility] SODIUM 137 136 - 145 mEq/L [facility] BUN 19(H) 7 - 17 mg/dL [facility] CO2 36(H) 22 - 32 mmol/l [facility] POTASSIUM 3.8 3.5 - 5.0 mEq/L [facility] OSMOLALITY, CALCULATED 287 275 - 295 mOsm/Kg [facility] CREATININE 0.4(L) 0.7 - 1.2 mg/dL [facility] CALCIUM 8.4 8.4 - 10.5 mg/dL [facility] GLUCOSE 142(H) 70 - 110 mg/dL [facility] CHLORIDE 98 95 - 110 mEq/L [facility] Blood specimen (specimen) 04/21/2008 2:00 AM CDT 04/21/2008 2:00 AM CDT Riky Mejía MD CHEMISTRY ORDERABLES Final Result Performing Organization Address [facility] de Phone Number INTERFACE SYSTEM Refer to clinic/hospital department [facility] CLIA# [id number] [address] [place] [address] * (ABNORMAL) POC GLUCOSE (04/20/2008 11:57 PM CDT) Pathologist [facility] GLUCOSE POC 142(H) 60 - 100 mg/dL [facility] Venous blood specimen (specimen) 04/20/2008 11:57 PM CDT 04/21/2008 12:09 AM CDT Riky Mejía MD POINT OF CARE TESTING Final Result Performing Organization Address [facility] de Phone Number INTERFACE SYSTEM Refer to clinic/hospital department [facility] CLIA# [id number] [facility] [place] [address] * (ABNORMAL) BASIC METABOLIC PANEL (04/20/2008 11:40 PM CDT) [facility] POTASSIUM 3.8 3.5 - 5.0 mEq/L [facility] Comment: Specimen slightly hemolyzed OSMOLALITY, CALCULATED 286 275 - 295 mOsm/Kg [facility] CREATININE 0.5(L) 0.7 - 1.2 mg/dL [facility] CALCIUM 8.7 8.4 - 10.5 mg/dL [facility] GLUCOSE 119(H) 70 - 110 mg/dL [facility] CHLORIDE 95 95 - 110 mEq/L [facility] ANION GAP 13 9 - 20 mEq/L [facility] SODIUM 137 136 - 145 mEq/L [facility] BUN 20(H) 7 - 17 mg/dL [facility] CO2 33(H) 22 - 32 mmol/l [facility] Blood specimen (specimen) 04/20/2008 11:40 PM CDT 04/21/2008 5:43 AM CDT us Riky Mejía MD CHEMISTRY ORDERABLES Final Result Performing Organization Address [facility] Co de Phone Number INTERFACE SYSTEM Refer to clinic/hospital department [facility] CLIA# [id number] [address] [place] [address] * (ABNORMAL) POC GLUCOSE (04/20/2008 7:17 PM CDT) GLUCOSE POC 134(H) 60 - 100 mg/dL [facility] Venous blood specimen (specimen) 04/20/2008 7:17 PM CDT 04/21/2008 12:00 AM CDT Riky Mejía MD POINT OF CARE TESTING Final Result Performing Organization Address [facility] de Phone Number INTERFACE SYSTEM Refer to clinic/hospital department [facility] CLIA# [id number] [address] [place] [address] * POTASSIUM LEVEL (04/20/2008 4:09 PM CDT) POTASSIUM 4.1 3.5 - 5.0 mEq/L [facility] Blood specimen (specimen) 04/20/2008 4:09 PM CDT 04/20/2008 4:09 PM CDT Riky Mejía MD CHEMISTRY ORDERABLES Final Result Performing Organization Address [facility] de Phone Number INTERFACE SYSTEM Refer to clinic/hospital department [facility] CLIA# [id number] [address] [place] [address] * (ABNORMAL) POC GLUCOSE (04/20/2008 3:59 PM CDT) GLUCOSE POC 118(H) 60 - 100 mg/dL [facility] Venous blood specimen (specimen) 04/20/2008 3:59 PM CDT 04/21/2008 12:00 AM CDT Riky Mejía MD POINT OF CARE TESTING Final Result Performing Organization Address [facility] de Phone Number INTERFACE SYSTEM Refer to clinic/hospital department [facility] CLIA# [id number] [address] [place] [address] * (ABNORMAL) POC GLUCOSE (04/20/2008 12:02 PM CDT) GLUCOSE POC 158(H) 60 - 100 mg/dL [facility] Venous blood specimen (specimen) 04/20/2008 12:02 PM CDT 04/21/2008 12:00 AM CDT Riky Mejía MD POINT OF CARE TESTING Final Result INTERFACE SYSTEM Refer to clinic/hospital department [facility] CLIA# [id number] [address] [place] [address] * (ABNORMAL) POC ISTAT EG 7+ (04/20/2008 10:06 AM CDT) SPECIMEN TYPE Arterial [facility] Comment: Test Performed By [id number] Pulse OX: 97 Hemoglobin calculated from Hematocrit result PCO2 TEMP CORRECT 48(H) 35 - 45 mmHg [facility] HEMOGLOBIN POC 10.5 +/-3 g/dL 12.0 - 16.0 g/dL [facility] POTASSIUM 3.8 3.5 - 4.9 mEq/L [facility] PH TEMP CORRECT 7.47(H) 7.35 - 7.45 Unit [facility] HCO3 (CALC) POC 35.4(H) 22.0 - 26.0 mmol/l [facility] TCO2 (CALC) POC 37(H) 23 - 27 mmol/l [facility] FIO2 40 [facility] PO2 90 80 - 105 mmHg [facility] CALCIUM IONIZED 1.06(L) 1.12 - 1.32 mmol/l [facility] HEMATOCRIT ABG 31(L) 38 - 51 % [facility] PCO2 POC 48(H) 35 - 45 mmHg [facility] SODIUM 134(L) 138 - 146 mEq/L [facility] BASE EXCESS 12(H) -2 - 3 mmol/l [facility] PH 7.47(H) 7.35 - 7.45 Unit [facility] O2 SATURATION 97 95 - 98 % [facility] PO2 TEMP CORRECT 90 80 - 105 mmHg [facility] Arterial blood specimen (specimen) 04/20/2008 10:06 AM CDT 04/20/2008 11:14 AM CDT us Riky Mejía MD POINT OF CARE TESTING COM F inal Result Performing Organization Address [facility] de Phone Number INTERFACE SYSTEM Refer to clinic/hospital department [facility] CLIA# [id number] [address] [place] [address] * POTASSIUM LEVEL (04/20/2008 7:15 AM CDT) POTASSIUM 4.5 3.5 - 5.0 mEq/L [facility] Blood specimen (specimen) 04/20/2008 7:15 AM CDT 04/20/2008 7:20 AM CDT us Riky Mejía MD CHEMISTRY ORDERABLES Final Result Performing Organization Address [facility] de Phone Number INTERFACE SYSTEM Refer to clinic/hospital department [facility] CLIA# [id number] [address] [place] [address] * (ABNORMAL) POC GLUCOSE (04/20/2008 7:11 AM CDT) GLUCOSE POC 138(H) 60 - 100 mg/dL [facility] Venous blood specimen (specimen) 04/20/2008 7:11 AM CDT 04/20/2008 11:59 PM CDT us Riky Mejía MD POINT OF CARE TESTING Final Result Performing Organization Address City/[facility] de Phone Number INTERFACE SYSTEM Refer to clinic/hospital department [facility] CLIA# [id number] [address] [place] [address] * (ABNORMAL) POC ISTAT EG 7+ (04/20/2008 4:30 AM CDT) FIO2 30 [facility] HEMATOCRIT ABG 29(L) 38 - 51 % [facility] PO2 84 80 - 105 mmHg [facility] CALCIUM IONIZED 1.11(L) 1.12 - 1.32 mmol/l [facility] PCO2 POC 44 35 - 45 mmHg [facility] BASE EXCESS 14(H) -2 - 3 mmol/l [facility] SODIUM 131(L) 138 - 146 mEq/L [facility] PH 7.53(H) 7.35 - 7.45 Unit [facility] PO2 TEMP CORRECT 84 80 - 105 mmHg [facility] O2 SATURATION 97 95 - 98 % [facility] SPECIMEN TYPE Arterial [facility] Comment: Test Performed By [id number] PEEP: 06 Pressure Support: 14 Pulse OX: 96 Hemoglobin calculated from Hematocrit result PCO2 TEMP CORRECT 44 35 - 45 mmHg [facility] POTASSIUM 4.0 3.5 - 4.9 mEq/L [facility] HEMOGLOBIN POC 9.9 +/-3 g/dL 12.0 - 16.0 g/dL [facility] PH TEMP CORRECT 7.53(H) 7.35 - 7.45 Unit [facility] TCO2 (CALC) POC 38(H) 23 - 27 mmol/l [facility] HCO3 (CALC) POC 36.4(H) 22.0 - 26.0 mmol/l [facility] Arterial blood specimen (specimen) 04/20/2008 4:30 AM CDT 04/20/2008 5:54 AM CDT us Riky Mejía MD POINT OF CARE TESTING COM F inal Result INTERFACE SYSTEM Refer to clinic/hospital department [facility] CLIA# [id number] [address] [place] [address] * (ABNORMAL) DIFFERENTIAL, MANUAL (04/20/2008 4:04 AM CDT) POIKILOCYTES 1+(A) None Seen [facility] MONOCYTE 9 4 - 10 % [facility] RBC MORPHOLOGY Abnormal(A ) Normal [facility] BANDS 11(H) 0 - 6 % [facility] POLYCHROMASIA 1+(A) None Seen [facility] EOSINOPHILS 1 0 - 3 % [facility] ANISOCYTOSIS 1+(A) None Seen [facility] PLATELET EST. Normal Normal [facility] LYMPHOCYTES 17(L) 24 - 44 % [facility] NEUTROPHILS, SEG 62 36 - 66 % [facility] Blood specimen (specimen) 04/20/2008 4:04 AM CDT 04/20/2008 4:16 AM CDT Narrative INTERFACE SYSTEM - 04/20/2008 5:12 AM CDT Differential ordered by policy. Riky Mejía MD HEMATOLOGY ORDERABLES COM F inal Result INTERFACE SYSTEM Refer to clinic/hospital department [facility] CLIA# [id number] [address] [place] [address] * (ABNORMAL) PT AND APTT (04/20/2008 4:04 AM CDT) PTT 31.3 22.5 - 36.5 Secs [facility] Comment: Therapeutic Range: Hi-level PE/DVT heparin protocol 80.1 -95.0 sec Lo-level PE/DVT heparin protocol 67.1 - 80.0 sec Cardiac Heparin Protocol 67.1 - 85.0 sec Neuro Heparin Protocol 67.1 - 80.0 sec As of 09/25/2007 note change in APTT Normal Range. PROTIME 17.4(H) 12.8 - 15.8 Secs [facility] Comment:As of 2007 not e change in normal range. INR 1.3 [facility] Comment: Expected Values for INR: DVT/PE Goal INR 2.5; range 2.0 - 3.0 Valve Replacement Tissue Goal INR 2.5; range 2.0 - 3.0 Mechanical Goal INR 3.0; range 2.5 - 3.5 POST-VA Goal INR 2.5; range 2.0 - 3.0 or Goal 3.0; range 2.5 - 3.5 Atrial Fibrillation Goal INR 2.5; range 2.0 - 3.0 Ischemic Stroke Goal INR 2.5; range 2.0 - 3.0 For additional information see Guidelines for Anticoagulation available from the pharmacy [facility]. [phone] Blood specimen (specimen) 04/20/2008 4:04 AM CDT 04/20/2008 4:16 AM CDT Riky Mejía MD HEMATOLOGY ORDERABLES Edite d INTERFACE SYSTEM Refer to clinic/hospital department [facility] CLIA# [id number] [address] [place] [address] * (ABNORMAL) CBC WITH DIFFERENTIAL (04/20/2008 4:04 AM CDT) HEMATOCRIT 30.6(L) 36.0 - 46.0 % [facility] PLATELETS 436 140 - 440 K/ul [facility] RBC 3.30(L) 4.20 - 5.40 Mil/ul [facility] MCHC 32.0 30.0 - 35.0 g/dL [facility] MCV 92.7 84.0 - 103.0 Fl [facility] MPV 10.2 8.9 - 12.8 Fl [facility] HEMOGLOBIN 9.8(L) 12.0 - 16.0 g/dL [facility] RDW 17.3(H) 11.0 - 14.5 % [facility] WBC 13.0(H) 4.5 - 11.0 K/ul [facility] MCH 29.7 27.0 - 34.0 pg [facility] Blood specimen (specimen) 04/20/2008 4:04 AM CDT 04/20/2008 4:16 AM CDT Riky Mejía MD HEMATOLOGY ORDERABLES Edite d Performing Organization Address [facility] Phone Number INTERFACE SYSTEM Refer to clinic/hospital department [facility] CLIA# [id number] [address] [place] [address] * (ABNORMAL) BASIC METABOLIC PANEL (04/20/2008 4:04 AM CDT) BUN 19(H) 7 - 17 mg/dL [facility] CO2 33(H) 22 - 32 mmol/l [facility] POTASSIUM 4.1 3.5 - 5.0 mEq/L [facility] OSMOLALITY, CALCULATED 280 275 - 295 mOsm/Kg [facility] CREATININE 0.5(L) 0.7 - 1.2 mg/dL [facility] CALCIUM 8.6 8.4 - 10.5 mg/dL [facility] GLUCOSE 146(H) 70 - 110 mg/dL [facility] CHLORIDE 97 95 - 110 mEq/L [facility] ANION GAP 7(L) 9 - 20 mEq/L [facility] SODIUM 133(L) 136 - 145 mEq/L [facility] Blood specimen (specimen) 04/20/2008 4:04 AM CDT 04/20/2008 4:40 AM CDT us Riky Mejía MD CHEMISTRY ORDERABLES Final Result Performing Organization Address [facility] Phone Number INTERFACE SYSTEM Refer to clinic/hospital department [facility] CLIA# [id number] [address] [place] [address] * (ABNORMAL) POC GLUCOSE (04/20/2008 3:59 AM CDT) GLUCOSE POC 160(H) 60 - 100 mg/dL [facility] Venous blood specimen (specimen) 04/20/2008 3:59 AM CDT 04/20/2008 6:38 AM CDT Riky Mejía MD POINT OF CARE TESTING Final Result Performing Organization Address [facility] Phone Number INTERFACE SYSTEM Refer to clinic/hospital department [facility] CLIA# [id number] [address] [place] [address] * POTASSIUM LEVEL (04/19/2008 11:37 PM CDT) POTASSIUM 4.3 3.5 - 5.0 mEq/L [facility] Blood specimen (specimen) 04/19/2008 11:37 PM CDT 04/19/2008 11:46 PM CDT Riky Mejía MD CHEMISTRY ORDERABLES Final Result Performing Organization Address [facility] Phone Number INTERFACE SYSTEM Refer to clinic/hospital [facility] CLIA# [id number] [address] [place] [address] * (ABNORMAL) POC GLUCOSE (04/19/2008 11:30 PM CDT) GLUCOSE POC 156(H) 60 - 100 mg/dL [facility] Venous blood specimen (specimen) 04/19/2008 11:30 PM CDT 04/20/2008 6:37 AM CDT us Riky Mejía MD POINT OF CARE TESTING Final Result Performing Organization Address [facility] Phone Number INTERFACE SYSTEM Refer to clinic/hospital [facility] CLIA# [id number] [address] [place] [address] * (ABNORMAL) DIFFERENTIAL, MANUAL (04/19/2008 8:35 PM CDT) MONOCYTE 12(H) 4 - 10 % [facility] ANISOCYTOSIS 1+(A) None Seen [facility] BANDS 18(H) 0 - 6 % [facility] PLATELET EST. Normal Normal [facility] METAMYELOCYTE 2(H) 0 - 1 % [facility] POLYCHROMASIA 1+(A) None Seen [facility] LYMPHOCYTES 6(L) 24 - 44 % [facility] RBC MORPHOLOGY Abnormal(A ) Normal [facility] NEUTROPHILS, SEG 57 36 - 66 % [facility] MYELOCYTES 5(H) <=1 % [facility] GIANT PLATELETS Present(A) [facility] Blood specimen (specimen) 04/19/2008 8:35 PM CDT 04/19/2008 8:35 PM CDT Narrative INTERFACE SYSTEM - 04/19/2008 10:07 PM CDT Differential ordered by policy. Riky Mejía MD HEMATOLOGY ORDERABLES COM F inal Result INTERFACE SYSTEM Refer to clinic/hospital department [facility] CLIA# [id number] [place] [address] * (ABNORMAL) PT AND APTT (04/19/2008 8:35 PM CDT) INR 1.3 [facility] Comment: Expected Values for INR: DVT/PE Goal INR 2.5; range 2.0 - 3.0 Valve Replacement Tissue Goal INR 2.5; range 2.0 - 3.0 Mechanical Goal INR 3.0; range 2.5 - 3.5 POST-VA Goal INR 2.5; range 2.0 - 3.0 or Goal 3.0; range 2.5 - 3.5 Atrial Fibrillation Goal INR 2.5; range 2.0 - 3.0 Ischemic Stroke Goal INR 2.5; range 2.0 - 3.0 For additional information see Guidelines for Anticoagulation available from the pharmacy [facility]. [phone] PROTIME 17.0(H) 12.8 - 15.8 Secs [facility] Comment:As of 2007 not e change in normal range. PTT 33.0 22.5 - 36.5 Secs [facility] Comment: Therapeutic Range: Hi-level PE/DVT heparin [...] HEMATOLOGY ORDERABLES Edite d Performing Organization Address City/State/[facility] Co de Phone Number INTERFACE SYSTEM Refer to clinic/hospital department [facility] CLIA# [id number] [place] [address] * (ABNORMAL) CBC WITH DIFFERENTIAL (04/19/2008 8:35 PM CDT) RBC 3.37(L) 4.20 - 5.40 Mil/ul [facility] MCHC 31.6 30.0 - 35.0 g/dL [facility] LYMPHOCYTE ABSOLUTE 1.8 1.2 - 4.0 K/ul [facility] LYMPHOCYTES 12.2(L) 24.0 - 44.0 % [facility] MCV 92.9 84.0 - 103.0 Fl [facility] BASOPHILS 0.9 0.0 - 1.0 % [facility] MPV 10.4 8.9 - 12.8 Fl [facility] NRBC 1 <=1 [facility] LAB BASOPHILS ABSOLUTE 0.1 0.0 - 0.2 K/ul [facility] HEMOGLOBIN 9.9(L) 12.0 - 16.0 g/dL [facility] MONOCYTES 10.2(H) 2.0 - 10.0 % [facility] RDW 17.4(H) 11.0 - 14.5 % [facility] MONOCYTE ABSOLUTE 1.5(H) 0.1 - 0.6 K/ul [facility] NEUTROPHILS 75.3(H) 42.2 - 75.2 % [facility] MCH 29.4 27.0 - 34.0 pg [facility] WBC 14.9(H) 4.5 - 11.0 K/ul [facility] Comment: WBC Corrected for Nucleated RBC'S NEUTROPHIL ABSOLUTE 11.3(H) 2.0 - 8.0 K/ul [facility] HEMATOCRIT 31.3(L) 36.0 - 46.0 % [facility] PLATELETS 459(H) 140 - 440 K/ul [facility] EOSINOPHIL ABSOLUTE 0.2 0.0 - 0.7 K/ul [facility] EOSINOPHILS 1.4 0.0 - 7.0 % [facility] Blood specimen (specimen) 04/19/2008 8:35 PM CDT 04/19/2008 8:35 PM CDT us Riky Mejía MD HEMATOLOGY ORDERABLES Edite d Performing Organization Address City/[facility] Co de Phone Number INTERFACE SYSTEM Refer to clinic/hospital department [facility] CLIA# [id number] [address] [place] [address] * (ABNORMAL) POC GLUCOSE (04/19/2008 8:31 PM CDT) GLUCOSE POC 115(H) 60 - 100 mg/dL [facility] Venous blood specimen (specimen) 04/19/2008 8:31 PM CDT 04/20/2008 6:37 AM CDT Riky Mejía MD POINT OF CARE TESTING Final Result Performing Organization Address City/[facility] Co de Phone Number INTERFACE SYSTEM Refer to clinic/hospital department [facility] CLIA# [id number] [address] [place] [address] * XR CHEST PA OR AP (04/19/2008 [...] GLUCOSE POC 125(H) 60 - 100 mg/dL [facility] Venous blood specimen (specimen) 04/19/2008 4:58 PM CDT 04/20/2008 7:00 AM CDT Riky Mejía MD POINT OF CARE TESTING Final Result Performing Organization Address [facility] Phone Number INTERFACE SYSTEM Refer to clinic/hospital department [facility] CLIA# [id number] [address] [place] [address] * POTASSIUM LEVEL (04/19/2008 4:30 PM CDT) POTASSIUM 4.0 3.5 - 5.0 mEq/L [facility] Blood specimen (specimen) 04/19/2008 4:30 PM CDT 04/19/2008 4:30 PM CDT Riky Mejía MD CHEMISTRY ORDERABLES Final Result Performing Organization Address [facility] Phone Number INTERFACE SYSTEM Refer to clinic/hospital department [facility] CLIA# [id number] [address] [place] [address] * (ABNORMAL) POC GLUCOSE (04/19/2008 12:04 PM CDT) GLUCOSE POC 139(H) 60 - 100 mg/dL [facility] Venous blood specimen (specimen) 04/19/2008 12:04 PM CDT 04/20/2008 7:00 AM CDT us Riky Mejía MD POINT OF CARE TESTING Final Result Performing Organization Address [facility] Phone Number INTERFACE SYSTEM Refer to clinic/hospital department [facility] CLIA# [id number] [address] [place] [address] * (ABNORMAL) POC GLUCOSE (04/19/2008 8:28 AM CDT) GLUCOSE POC 144(H) 60 - 100 mg/dL [facility] Venous blood specimen (specimen) 04/19/2008 8:28 AM CDT 04/20/2008 7:00 AM CDT Riky Mejía MD POINT OF CARE TESTING Final Result INTERFACE SYSTEM Refer to clinic/hospital department [facility] CLIA# [id number] [address] [place] [address] * XR CHEST PA OR AP (04/19/2008 [...] 3:20 AM CDT) ANISOCYTOSIS 1+(A) None Seen [facility] LYMPHOCYTES 15(L) 24 - 44 % [facility] MYELOCYTES 1 <=1 % [facility] MONOCYTE 4 4 - 10 % [facility] NEUTROPHILS, SEG 73(H) 36 - 66 % [facility] POIKILOCYTES 1+(A) None Seen [facility] PLATELET EST. Normal Normal [facility] BANDS 6 0 - 6 % [facility] POLYCHROMASIA Present(A) None Seen [facility] EOSINOPHILS 1 0 - 3 % [facility] Blood specimen (specimen) 04/19/2008 3:20 AM CDT 04/19/2008 3:20 AM CDT Narrative INTERFACE SYSTEM - 04/19/2008 3:58 AM CDT Differential ordered by policy. us Riky Mejía MD HEMATOLOGY ORDERABLES COM F inal Result INTERFACE SYSTEM Refer to clinic/hospital department [facility] CLIA# [id number] [address] [place] [address] * (ABNORMAL) COMPREHENSIVE METABOLIC PANEL (04/19/2008 3:20 AM CDT) GLUCOSE 138(H) 70 - 110 mg/dL [facility] CHLORIDE 94(L) 95 - 110 mEq/L [facility] ALBUMIN/GLOBULIN RATIO 0.9(L) 1.0 - 2.3 [facility] ALKALINE PHOSPHATASE 209(H) 25 - 100 U/L [facility] SODIUM 136 136 - 145 mEq/L [facility] BILIRUBIN TOTAL 1.6(H) 0.3 - 1.2 mg/dL [facility] TOTAL PROTEIN 5.6(L) 6.3 - 8.2 g/dL [facility] BUN 19(H) 7 - 17 mg/dL [facility] AST 73(H) 8 - 33 U/L [facility] CO2 37(H) 22 - 32 mmol/l [facility] ANION GAP 9 9 - 20 mEq/L [facility] ALBUMIN 2.6(L) 3.5 - 5.0 g/dL [facility] POTASSIUM 3.9 3.5 - 5.0 mEq/L [facility] GLOBULIN (CALC) 3.0 2.4 - 3.9 g/dL [facility] CREATININE 0.5(L) 0.7 - 1.2 mg/dL [facility] CALCIUM 8.6 8.4 - 10.5 mg/dL [facility] OSMOLALITY, CALCULATED 285 275 - 295 mOsm/Kg [facility] ALT 68(H) 4 - 36 IU/L [facility] Blood specimen (specimen) 04/19/2008 3:20 AM CDT 04/19/2008 3:20 AM CDT us Riky Mejía MD CHEMISTRY ORDERABLES Final Result INTERFACE SYSTEM Refer to clinic/hospital department [facility] CLIA# [id number] [address] [place] [address] * (ABNORMAL) CBC WITH DIFFERENTIAL (04/19/2008 3:20 AM CDT) WBC 13.9(H) 4.5 - 11.0 K/ul [facility] MCH 29.1 27.0 - 34.0 pg [facility] HEMATOCRIT 30.7(L) 36.0 - 46.0 % [facility] PLATELETS 390 140 - 440 K/ul [facility] RBC 3.33(L) 4.20 - 5.40 Mil/ul [facility] MCHC 31.6 30.0 - 35.0 g/dL [facility] MPV 10.2 8.9 - 12.8 Fl [facility] MCV 92.2 84.0 - 103.0 Fl [facility] HEMOGLOBIN 9.7(L) 12.0 - 16.0 g/dL [facility] RDW 16.9(H) 11.0 - 14.5 % [facility] Blood specimen (specimen) 04/19/2008 3:20 AM CDT 04/19/2008 3:20 AM CDT Riky Mejía MD HEMATOLOGY ORDERABLES Edite d Performing Organization Address [facility] Phone Number INTERFACE SYSTEM Refer to clinic/hospital department [facility] CLIA# [id number] [address] [place] [address] * POTASSIUM LEVEL (04/18/2008 11:41 PM CDT) POTASSIUM 3.9 3.5 - 5.0 mEq/L [facility] Blood specimen (specimen) 04/18/2008 11:41 PM CDT 04/18/2008 11:41 PM CDT Riky Mejía MD CHEMISTRY ORDERABLES Final Result Performing Organization Address [facility] Phone Number INTERFACE SYSTEM Refer to clinic/hospital department [facility] CLIA# [id number] [address] [place] [address] * POTASSIUM LEVEL (04/18/2008 3:49 PM CDT) POTASSIUM 4.0 3.5 - 5.0 mEq/L [facility] Blood specimen (specimen) 04/18/2008 3:49 PM CDT 04/18/2008 3:49 PM CDT Riky Mejía MD CHEMISTRY ORDERABLES Final Result Performing Organization Address City/[facility] de Phone Number INTERFACE SYSTEM Refer to clinic/hospital department [facility] CLIA# [id number] [address] [place] [address] * (ABNORMAL) POC GLUCOSE (04/18/2008 7:29 AM CDT) Pathologist [facility] GLUCOSE POC 153(H) 60 - 100 mg/dL [facility] Venous blood specimen (specimen) 04/18/2008 7:29 AM CDT 04/19/2008 6:47 AM CDT Riky Mejía MD POINT OF CARE TESTING Final Result Performing Organization Address [facility] de Phone Number INTERFACE SYSTEM Refer to clinic/hospital department [facility] CLIA# [id number] [address] [place] [address] * (ABNORMAL) CBC WITH DIFFERENTIAL (04/18/2008 3:29 AM CDT) [facility] RDW 17.0(H) 11.0 - 14.5 % [facility] BASOPHILS ABSOLUTE 0.2 0.0 - 0.2 K/ul [facility] BASOPHILS 1.0 0.0 - 1.0 % [facility] WBC 14.5(H) 4.5 - 11.0 K/ul [facility] MCH 29.0 27.0 - 34.0 pg [facility] MONOCYTE ABSOLUTE 1.1(H) 0.1 - 0.6 K/ul [facility] MONOCYTES 7.3 2.0 - 10.0 % [facility] HEMATOCRIT 30.5(L) 36.0 - 46.0 % [facility] NEUTROPHIL ABSOLUTE 12.1(H) 2.0 - 8.0 K/ul [facility] NEUTROPHILS 83.1(H) 42.2 - 75.2 % [facility] PLATELETS 332 140 - 440 K/ul [facility] RBC 3.31(L) 4.20 - 5.40 Mil/ul [facility] MCHC 31.5 30.0 - 35.0 g/dL [facility] EOSINOPHILS 1.3 0.0 - 7.0 % [facility] PERIPHERAL BLOOD SMEAR REVIEW Automated Diff [facility] EOSINOPHIL ABSOLUTE 0.2 0.0 - 0.7 K/ul [facility] MCV 92.1 84.0 - 103.0 Fl [facility] LYMPHOCYTES 7.3(L) 24.0 - 44.0 % [facility] MPV 10.3 8.9 - 12.8 Fl [facility] LYMPHOCYTE ABSOLUTE 1.1(L) 1.2 - 4.0 K/ul [facility] HEMOGLOBIN 9.6(L) 12.0 - 16.0 g/dL [facility] Blood specimen (specimen) 04/18/2008 3:29 AM CDT 04/18/2008 3:35 AM CDT us Riky Mejía MD HEMATOLOGY ORDERABLES Edite d INTERFACE SYSTEM Refer to clinic/hospital department [facility] CLIA# [id number] [address] [place] [address] * (ABNORMAL) COMPREHENSIVE METABOLIC PANEL (04/18/2008 3:29 AM CDT) AST 133(H) 8 - 33 U/L [facility] ALBUMIN/GLOBULIN RATIO 0.9(L) 1.0 - 2.3 [facility] POTASSIUM 4.1 3.5 - 5.0 mEq/L [facility] ANION GAP 6(L) 9 - 20 mEq/L [facility] ALBUMIN 2.4(L) 3.5 - 5.0 g/dL [facility] CREATININE 0.4(L) 0.7 - 1.2 mg/dL [facility] ALT 75(H) 4 - 36 IU/L [facility] CALCIUM 8.6 8.4 - 10.5 mg/dL [facility] GLUCOSE 134(H) 70 - 110 mg/dL [facility] ALKALINE PHOSPHATASE 167(H) 25 - 100 U/L [facility] CHLORIDE 96 95 - 110 mEq/L [facility] OSMOLALITY, CALCULATED 287 275 - 295 mOsm/Kg [facility] GLOBULIN (CALC) 2.8 2.4 - 3.9 g/dL [facility] TOTAL PROTEIN 5.2(L) 6.3 - 8.2 g/dL [facility] SODIUM 137 136 - 145 mEq/L [facility] BILIRUBIN TOTAL 2.1(H) 0.3 - 1.2 mg/dL [facility] CO2 39(H) 22 - 32 mmol/l [facility] BUN 20(H) 7 - 17 mg/dL [facility] Blood specimen (specimen) 04/18/2008 3:29 AM CDT 04/18/2008 3:35 AM CDT us Riky Mejía MD CHEMISTRY ORDERABLES Final Result Performing Organization Address [facility] de Phone Number INTERFACE SYSTEM Refer to clinic/hospital department [facility] CLIA# [id number] [address] [place] [address] * POTASSIUM LEVEL (04/17/2008 6:15 PM CDT) POTASSIUM 3.8 3.5 - 5.0 mEq/L [facility] Blood specimen (specimen) 04/17/2008 6:15 PM CDT 04/17/2008 6:19 PM CDT Narrative INTERFACE SYSTEM - 04/17/2008 6:44 PM CDT stat us Riky Mejía MD CHEMISTRY ORDERABLES Final Result Performing Organization Address City/[facility] de Phone Number INTERFACE SYSTEM Refer to clinic/hospital department [facility] CLIA# [id number] [address] [place] [address] * (ABNORMAL) POC GLUCOSE (04/17/2008 6:10 PM CDT) GLUCOSE POC 103(H) 60 - 100 mg/dL [facility] Venous blood specimen (specimen) 04/17/2008 6:10 PM CDT 04/18/2008 7:19 AM CDT Riky Mejía MD POINT OF CARE TESTING Final Result Performing Organization Address [facility] de Phone Number INTERFACE SYSTEM Refer to clinic/hospital department [facility] CLIA# [id number] [facility] [place] [address] * (ABNORMAL) POC GLUCOSE (04/17/2008 8:18 AM CDT) GLUCOSE POC 149(H) 60 - 100 mg/dL [facility] Venous blood specimen (specimen) 04/17/2008 8:18 AM CDT 04/18/2008 7:18 AM CDT Riky Mejía MD POINT OF CARE TESTING Final Result Performing Organization Address [facility] de Phone Number INTERFACE SYSTEM Refer to clinic/hospital department [facility] CLIA# [id number] [facility] [place] [address] * (ABNORMAL) POC ISTAT EG 7+ (04/17/2008 5:31 AM CDT) SODIUM 138 138 - 146 mEq/L [facility] PH 7.49(H) 7.35 - 7.45 Unit [facility] PO2 TEMP CORRECT 92 80 - 105 mmHg [facility] O2 SATURATION 98 95 - 98 % [facility] SPECIMEN TYPE Arterial [facility] Comment: Test Performed By [id number] Tidal volume: 450 PEEP: 08 Rate: 10 Pulse OX: 100 Hemoglobin calculated from Hematocrit result PCO2 TEMP CORRECT 50(H) 35 - 45 mmHg [facility] POTASSIUM 3.6 3.5 - 4.9 mEq/L [facility] HEMOGLOBIN POC 9.5 +/-3 g/dL 12.0 - 16.0 g/dL [facility] PH TEMP CORRECT 7.49(H) 7.35 - 7.45 Unit [facility] TCO2 (CALC) POC 40(H) 23 - 27 mmol/l [facility] HCO3 (CALC) POC 38.0(H) 22.0 - 26.0 mmol/l [facility] FIO2 30 [facility] HEMATOCRIT ABG 28(L) 38 - 51 % [facility] PO2 92 80 - 105 mmHg [facility] CALCIUM IONIZED 1.04(L) 1.12 - 1.32 mmol/l [facility] PCO2 POC 50(H) 35 - 45 mmHg [facility] BASE EXCESS 15(H) -2 - 3 mmol/l [facility] Arterial blood specimen (specimen) 04/17/2008 5:31 AM CDT 04/17/2008 6:05 AM CDT Riky Mejía MD POINT OF CARE TESTING COM F inal Result INTERFACE SYSTEM Refer to clinic/hospital department [facility]# [id number] [address] [place] [address] * (ABNORMAL) POC ISTAT EG 7+ (04/17/2008 4:22 AM CDT) PCO2 POC 52(H) 35 - 45 mmHg [facility] BASE EXCESS 19(H) -2 - 3 mmol/l [facility] SODIUM 137(L) 138 - 146 mEq/L [facility] PH 7.51(H) 7.35 - 7.45 Unit [facility] PO2 TEMP CORRECT 448(H) 80 - 105 mmHg [facility] O2 SATURATION 100(H) 95 - 98 % [facility] SPECIMEN TYPE Arterial [facility] Comment: Test Performed By [id number] Tidal volume: 500 PEEP: 08 Rate: 12 Pulse OX: 100 Hemoglobin calculated from Hematocrit result PCO2 TEMP CORRECT 52(H) 35 - 45 mmHg [facility] POTASSIUM 3.7 3.5 - 4.9 mEq/L [facility] HEMOGLOBIN POC 10.2 +/-3 g/dL 12.0 - 16.0 g/dL [facility] PH TEMP CORRECT 7.51(H) 7.35 - 7.45 Unit [facility] TCO2 (CALC) POC 44(H) 23 - 27 mmol/l [facility] HCO3 (CALC) POC 41.9(H) 22.0 - 26.0 mmol/l [facility] FIO2 30 [facility] HEMATOCRIT ABG 30(L) 38 - 51 % [facility] PO2 448(H) 80 - 105 mmHg [facility] CALCIUM IONIZED 1.01(L) 1.12 - 1.32 mmol/l [facility] Arterial blood specimen (specimen) 04/17/2008 4:22 AM CDT 04/17/2008 5:21 AM CDT us Riky Mejía MD POINT OF CARE TESTING COM F inal Result INTERFACE SYSTEM Refer to clinic/hospital department [facility] CLIA# [id number] [address] [place] [address] * (ABNORMAL) CBC WITH DIFFERENTIAL (04/17/2008 2:07 AM CDT) BASOPHILS ABSOLUTE 0.1 0.0 - 0.2 K/ul [facility] BASOPHILS 0.8 0.0 - 1.0 % [facility] HEMOGLOBIN 9.4(L) 12.0 - 16.0 g/dL [facility] RDW 16.7(H) 11.0 - 14.5 % [facility] MONOCYTE ABSOLUTE 1.1(H) 0.1 - 0.6 K/ul [facility] MONOCYTES 7.2 2.0 - 10.0 % [facility] WBC 14.8(H) 4.5 - 11.0 K/ul [facility] MCH 29.2 27.0 - 34.0 pg [facility] NEUTROPHIL ABSOLUTE 12.7(H) 2.0 - 8.0 K/ul [facility] NEUTROPHILS 86.0(H) 42.2 - 75.2 % [facility] HEMATOCRIT 28.9(L) 36.0 - 46.0 % [facility] EOSINOPHILS 1.2 0.0 - 7.0 % [facility] PLATELETS 287 140 - 440 K/ul [facility] PERIPHERAL BLOOD SMEAR REVIEW Automated Diff [facility] EOSINOPHIL ABSOLUTE 0.2 0.0 - 0.7 K/ul [facility] RBC 3.22(L) 4.20 - 5.40 Mil/ul [facility] LYMPHOCYTES 4.8(L) 24.0 - 44.0 % [facility] MCHC 32.5 30.0 - 35.0 g/dL [facility] LYMPHOCYTE ABSOLUTE 0.7(L) 1.2 - 4.0 K/ul [facility] MCV 89.8 84.0 - 103.0 Fl [facility] MPV 10.3 8.9 - 12.8 Fl [facility] Blood specimen (specimen) 04/17/2008 2:07 AM CDT 04/17/2008 2:12 AM CDT Riky Mejía MD HEMATOLOGY ORDERABLES Final Result INTERFACE SYSTEM Refer to clinic/hospital department [facility] CLIA# [id number] [address] [place] [address] * PHOSPHORUS (04/17/2008 2:07 AM CDT) PHOSPHORUS 3.0 2.5 - 4.6 mg/dL [facility] Blood specimen (specimen) 04/17/2008 2:07 AM CDT 04/17/2008 2:12 AM CDT Riky Mejía MD CHEMISTRY ORDERABLES Final Result Performing Organization Address City/State/[facility] Co de Phone Number INTERFACE SYSTEM Refer to clinic/hospital department [facility] CLIA# [id number] [facility] [place] [address] * (ABNORMAL) COMPREHENSIVE METABOLIC PANEL (04/17/2008 2:07 AM CDT) Pathologist [facility] GLOBULIN (CALC) 2.7 2.4 - 3.9 g/dL [facility] SODIUM 141 136 - 145 mEq/L [facility] BILIRUBIN TOTAL 2.6(H) 0.3 - 1.2 mg/dL [facility] TOTAL PROTEIN 4.9(L) 6.3 - 8.2 g/dL [facility] BUN 16 7 - 17 mg/dL [facility] AST 52(H) 8 - 33 U/L [facility] CO2 36(H) 22 - 32 mmol/l [facility] ALBUMIN/GLOBULIN RATIO 0.8(L) 1.0 - 2.3 [facility] ALBUMIN 2.2(L) 3.5 - 5.0 g/dL [facility] POTASSIUM 3.6 3.5 - 5.0 mEq/L [facility] ANION GAP 7(L) 9 - 20 mEq/L [facility] CALCIUM 7.9(L) 8.4 - 10.5 mg/dL [facility] CREATININE 0.5(L) 0.7 - 1.2 mg/dL [facility] ALT 37(H) 4 - 36 IU/L [facility] GLUCOSE 131(H) 70 - 110 mg/dL [facility] CHLORIDE 102 95 - 110 mEq/L [facility] OSMOLALITY, CALCULATED 292 275 - 295 mOsm/Kg [facility] ALKALINE PHOSPHATASE 122(H) 25 - 100 U/L [facility] Blood specimen (specimen) 04/17/2008 2:07 AM CDT 04/17/2008 2:12 AM CDT Riky Mejía MD CHEMISTRY ORDERABLES Final Result Performing Organization Address [facility] Phone Number INTERFACE SYSTEM Refer to clinic/hospital department [facility] CLIA# [id number] [address] [place] [address] * (ABNORMAL) TRIGLYCERIDE (04/17/2008 2:07 AM CDT) TRIGLYCERIDE 326(H) 0 - 150 mg/dL [facility] Comment: On 11/10/2007, [facility] changed the triglyceride reference range to 0-150 mg/dl. This is the recommendation of the National Cholesterol Education Program (NCEP-ATPIII). Blood specimen (specimen) 04/17/2008 2:07 AM CDT 04/17/2008 2:12 AM CDT Riky Mejía MD CHEMISTRY ORDERABLES Final Result Performing Organization Address [facility] Phone Number INTERFACE SYSTEM Refer to clinic/hospital department [facility] CLIA# [id number] [address] [place] [address] * (ABNORMAL) POC GLUCOSE (04/16/2008 6:56 PM CDT) GLUCOSE POC 151(H) 60 - 100 mg/dL [facility] Venous blood specimen (specimen) 04/16/2008 6:56 PM CDT 04/17/2008 12:06 PM CDT Riky Mejía MD POINT OF CARE TESTING Final Result Performing Organization Address [facility] Phone Number INTERFACE SYSTEM Refer to clinic/hospital department [facility] CLIA# [id number] [address] [place] [address] * POTASSIUM LEVEL (04/16/2008 4:43 PM CDT) POTASSIUM 3.7 3.5 - 5.0 mEq/L [facility] Comment: Specimen slightly hemolyzed. Slight icteric. Blood specimen (specimen) 04/16/2008 4:43 PM CDT 04/16/2008 4:43 PM CDT Riky Mejía MD CHEMISTRY ORDERABLES Final Result INTERFACE SYSTEM Refer to clinic/hospital department [facility] CLIA# [id number] [address] [place] [address] * (ABNORMAL) POC ISTAT EG 7+ (04/16/2008 12:11 PM CDT) POTASSIUM 3.5 3.5 - 4.9 mEq/L [facility] SPECIMEN TYPE Arterial [facility] Comment: Test Performed By [id number] Pulse OX: 97 Hemoglobin calculated from Hematocrit result PCO2 TEMP CORRECT 59(H) 35 - 45 mmHg [facility] HEMOGLOBIN POC 9.9 +/-3 g/dL 12.0 - 16.0 g/dL [facility] PH TEMP CORRECT 7.39 7.35 - 7.45 Unit [facility] HCO3 (CALC) POC 35.3(H) 22.0 - 26.0 mmol/l [facility] CALCIUM IONIZED 1.10(L) 1.12 - 1.32 mmol/l [facility] TCO2 (CALC) POC 37(H) 23 - 27 mmol/l [facility] FIO2 40 [facility] PO2 93 80 - 105 mmHg [facility] HEMATOCRIT ABG 29(L) 38 - 51 % [facility] PCO2 POC 59(H) 35 - 45 mmHg [facility] SODIUM 135(L) 138 - 146 mEq/L [facility] BASE EXCESS 10(H) -2 - 3 mmol/l [facility] PH 7.39 7.35 - 7.45 Unit [facility] O2 SATURATION 97 95 - 98 % [facility] PO2 TEMP CORRECT 93 80 - 105 mmHg [facility] Arterial blood specimen (specimen) 04/16/2008 12:11 PM CDT 04/16/2008 12:15 PM CDT Riky Mejía MD POINT OF CARE TESTING COM F inal Result Performing Organization Address City/[facility] de Phone Number INTERFACE SYSTEM Refer to clinic/hospital department [facility] CLIA# [id number] [address] [place] [address] * (ABNORMAL) POC GLUCOSE (04/16/2008 7:40 AM CDT) GLUCOSE POC 166(H) 60 - 100 mg/dL [facility] Venous blood specimen (specimen) 04/16/2008 7:40 AM CDT 04/17/2008 12:06 PM CDT Riky Mejía MD POINT OF CARE TESTING Final Result Performing Organization Address [facility] Phone Number INTERFACE SYSTEM Refer to clinic/hospital department [facility] CLIA# [id number] [address] [place] [address] * (ABNORMAL) POC ISTAT EG 7+ (04/16/2008 5:16 AM CDT) CALCIUM IONIZED 1.12 1.12 - 1.32 mmol/l [facility] PCO2 POC 46(H) 35 - 45 mmHg [facility] BASE EXCESS 10(H) -2 - 3 mmol/l [facility] SODIUM 133(L) 138 - 146 mEq/L [facility] PH 7.47(H) 7.35 - 7.45 Unit [facility] PO2 TEMP CORRECT 83 80 - 105 mmHg [facility] O2 SATURATION 97 95 - 98 % [facility] SPECIMEN TYPE Arterial [facility] Comment: Test Performed By [id number] Tidal volume: 500 PEEP: 06 Rate: 12 Pulse OX: 97 Hemoglobin calculated from Hematocrit result PCO2 TEMP CORRECT 46(H) 35 - 45 mmHg [facility] POTASSIUM 3.0(L) 3.5 - 4.9 mEq/L [facility] HEMOGLOBIN POC 9.2 +/-3 g/dL 12.0 - 16.0 g/dL [facility] PH TEMP CORRECT 7.47(H) 7.35 - 7.45 Unit [facility] TCO2 (CALC) POC 35(H) 23 - 27 mmol/l [facility] HCO3 (CALC) POC 33.4(H) 22.0 - 26.0 mmol/l [facility] FIO2 30 [facility] HEMATOCRIT ABG 27(L) 38 - 51 % [facility] PO2 83 80 - 105 mmHg [facility] Arterial blood specimen (specimen) 04/16/2008 5:16 AM CDT 04/16/2008 5:51 AM CDT us Riky Mejía MD POINT OF CARE TESTING COM F inal Result INTERFACE SYSTEM Refer to clinic/hospital department [facility] CLIA# [id number] [address] [place] [address] * (ABNORMAL) POC GLUCOSE (04/16/2008 5:12 AM CDT) GLUCOSE POC 151(H) 60 - 100 mg/dL [facility] Venous blood specimen (specimen) 04/16/2008 5:12 AM CDT 04/16/2008 6:51 AM CDT us Riky Mejía MD POINT OF CARE TESTING Final Result INTERFACE SYSTEM Refer to clinic/hospital department [facility] CLIA# [id number] [address] [place] [address] * XR CHEST PA OR AP (04/16/2008 [...] CDT) LYMPHOCYTES 5.4(L) 24.0 - 44.0 % [facility] MCHC 33.3 30.0 - 35.0 g/dL [facility] LYMPHOCYTE ABSOLUTE 1.1(L) 1.2 - 4.0 K/ul [facility] MCV 88.4 84.0 - 103.0 Fl [facility] MPV 10.1 8.9 - 12.8 Fl [facility] BASOPHILS ABSOLUTE 0.1 0.0 - 0.2 K/ul [facility] BASOPHILS 0.3 0.0 - 1.0 % [facility] HEMOGLOBIN 9.4(L) 12.0 - 16.0 g/dL [facility] RDW 16.2(H) 11.0 - 14.5 % [facility] MONOCYTE ABSOLUTE 0.7(H) 0.1 - 0.6 K/ul [facility] MONOCYTES 3.3 2.0 - 10.0 % [facility] WBC 19.6(H) 4.5 - 11.0 K/ul [facility] MCH 29.5 27.0 - 34.0 pg [facility] NEUTROPHIL ABSOLUTE 17.6(H) 2.0 - 8.0 K/ul [facility] NEUTROPHILS 89.9(H) 42.2 - 75.2 % [facility] HEMATOCRIT 28.2(L) 36.0 - 46.0 % [facility] EOSINOPHILS 1.1 0.0 - 7.0 % [facility] PLATELETS 292 140 - 440 K/ul [facility] PERIPHERAL BLOOD SMEAR REVIEW Automated Diff [facility] EOSINOPHIL ABSOLUTE 0.2 0.0 - 0.7 K/ul [facility] RBC 3.19(L) 4.20 - 5.40 Mil/ul [facility] Blood specimen (specimen) 04/16/2008 3:20 AM CDT 04/16/2008 3:26 AM CDT us Riky Mejía MD HEMATOLOGY ORDERABLES Final Result INTERFACE SYSTEM Refer to clinic/hospital department [facility] CLIA# [id number] [address] [place] [address] * (ABNORMAL) COMPREHENSIVE METABOLIC PANEL (04/16/2008 3:20 AM CDT) AST 58(H) 8 - 33 U/L [facility] CO2 32 22 - 32 mmol/l [facility] ALBUMIN/GLOBULIN RATIO 0.9(L) 1.0 - 2.3 [facility] ALBUMIN 2.2(L) 3.5 - 5.0 g/dL [facility] POTASSIUM 2.9(AA) 3.5 - 5.0 mEq/L [facility] Comment: Potentially critical/toxic K called by GS to JOCELYNE DILLARD, with verbal read back, at 04/16/08 04:21. ANION GAP 9 9 - 20 mEq/L [facility] CALCIUM 8.2(L) 8.4 - 10.5 mg/dL [facility] CREATININE 0.6(L) 0.7 - 1.2 mg/dL [facility] ALT 37(H) 4 - 36 IU/L [facility] GLUCOSE 148(H) 70 - 110 mg/dL [facility] CHLORIDE 98 95 - 110 mEq/L [facility] OSMOLALITY, CALCULATED 283 275 - 295 mOsm/Kg [facility] ALKALINE PHOSPHATASE 105(H) 25 - 100 U/L [facility] GLOBULIN (CALC) 2.5 2.4 - 3.9 g/dL [facility] SODIUM 136 136 - 145 mEq/L [facility] BILIRUBIN TOTAL 4.4(H) 0.3 - 1.2 mg/dL [facility] TOTAL PROTEIN 4.7(L) 6.3 - 8.2 g/dL [facility] BUN 17 7 - 17 mg/dL [facility] Blood specimen (specimen) 04/16/2008 3:20 AM CDT 04/16/2008 3:26 AM CDT us Riky Mejía MD CHEMISTRY ORDERABLES Final Result Performing Organization Address [facility] Phone Number INTERFACE SYSTEM Refer to clinic/hospital department [facility] CLIA# [id number] [address] [place] [address] * (ABNORMAL) POC GLUCOSE (04/15/2008 6:36 PM CDT) GLUCOSE POC 110(H) 60 - 100 mg/dL [facility] Venous blood specimen (specimen) 04/15/2008 6:36 PM CDT 04/16/2008 6:51 AM CDT us Riky Mejía MD POINT OF CARE TESTING Final Result Performing Organization Address [facility] Phone Number INTERFACE SYSTEM Refer to clinic/hospital department [facility] CLIA# [id number] [address] [place] [address] * (ABNORMAL) HEMOGLOBIN AND HEMATOCRIT (04/15/2008 4:00 PM CDT) HEMOGLOBIN 7.8(L) 12.0 - 16.0 g/dL [facility] HEMATOCRIT 24.1(L) 36.0 - 46.0 % [facility] Blood specimen (specimen) 04/15/2008 4:00 PM CDT 04/15/2008 4:00 PM CDT us Riky Mejía MD HEMATOLOGY ORDERABLES Final Result Performing Organization Address [facility] Phone Number INTERFACE SYSTEM Refer to clinic/hospital department [facility] CLIA# [id number] [address] [place] [address] * (ABNORMAL) VANCOMYCIN LEVEL TROUGH (04/15/2008 9:53 AM CDT) VANCOMYCIN, TROUGH 18.3(H) 5.0 - 15.0 mcg/mL [facility] Blood specimen (specimen) 04/15/2008 9:53 AM CDT 04/15/2008 9:53 AM CDT Riky Mejía MD CHEMISTRY ORDERABLES Final Result Performing Organization Address [facility] Phone Number INTERFACE SYSTEM Refer to clinic/hospital department [facility] CLIA# [id number] [address] [place] [address] * (ABNORMAL) TRIGLYCERIDE (04/15/2008 9:53 AM CDT) TRIGLYCERIDE 435(H) 0 - 150 mg/dL [facility] Comment: On 11/10/2007, [facility] changed the triglyceride reference range to 0-150 mg/dl. This is the recommendation of the National Cholesterol Education Program (NCEP-ATPIII). Blood specimen (specimen) 04/15/2008 9:53 AM CDT 04/15/2008 9:53 AM CDT Riky Mejía MD CHEMISTRY ORDERABLES Final Result Performing Organization Address [facility] Phone Number INTERFACE SYSTEM Refer to clinic/hospital department [facility] CLIA# [id number] [address] [place] [address] * PROTIME-INR (04/15/2008 9:53 AM CDT) PROTIME 15.2 12.8 - 15.8 Secs [facility] Comment:As of 2007 not e change in normal range. INR 1.1 [facility] Comment: Expected Values for INR: DVT/PE Goal INR 2.5; range 2.0 - 3.0 Valve Replacement Tissue Goal INR 2.5; range 2.0 - 3.0 Mechanical Goal INR 3.0; range 2.5 - 3.5 POST-VA Goal INR 2.5; range 2.0 - 3.0 or Goal 3.0; range 2.5 - 3.5 Atrial Fibrillation Goal INR 2.5; range 2.0 - 3.0 Ischemic Stroke Goal INR 2.5; range 2.0 - 3.0 For additional information see Guidelines for Anticoagulation available from the pharmacy [facility]. [phone] Blood specimen (specimen) 04/15/2008 9:53 AM CDT 04/15/2008 9:53 AM CDT Riky Mejía MD HEMATOLOGY ORDERABLES Final Result Performing Organization Address [facility] Phone Number INTERFACE SYSTEM Refer to clinic/hospital department [facility] CLIA# [id number] [address] [place] [address] * (ABNORMAL) TRANSFERRIN (04/15/2008 9:53 AM CDT) TRANSFERRIN 59.0(L) 204.0 - 376.0 mg/dL [facility] Comment: Specimen slightly hemolyzed Blood specimen (specimen) 04/15/2008 9:53 AM CDT 04/15/2008 9:53 AM CDT Riky Mejía MD CHEMISTRY ORDERABLES Final Result Performing Organization Address [facility] Phone Number INTERFACE SYSTEM Refer to clinic/hospital [facility] CLIA# [id number] [address] [place] [address] * (ABNORMAL) PREALBUMIN (04/15/2008 9:53 AM CDT) PREALBUMIN <5.0(L) 14.0 - 32.0 mg/dL [facility] Comment: Test Repeated; Results confirmed Blood specimen (specimen) 04/15/2008 9:53 AM CDT 04/15/2008 9:53 AM CDT Riky Mejía MD CHEMISTRY ORDERABLES Final Result Performing Organization Address [facility] Phone Number INTERFACE SYSTEM Refer to clinic/hospital [facility] CLIA# [id number] [address] [place] [address] * PHOSPHORUS (04/15/2008 9:53 AM CDT) PHOSPHORUS 3.9 2.5 - 4.6 mg/dL [facility] Blood specimen (specimen) 04/15/2008 9:53 AM CDT 04/15/2008 9:53 AM CDT us Riky Mejía MD CHEMISTRY ORDERABLES Edited Performing Organization Address [facility] Phone Number INTERFACE SYSTEM Refer to clinic/hospital department [facility] CLIA# [id number] [address] [place] [address] * (ABNORMAL) MAGNESIUM LEVEL (04/15/2008 9:53 AM CDT) MAGNESIUM 1.3(L) 1.7 - 2.4 mg/dL [facility] Blood specimen (specimen) 04/15/2008 9:53 AM CDT 04/15/2008 9:53 AM CDT us Riky Mejía MD CHEMISTRY ORDERABLES Edited Performing Organization Address [facility] Phone Number INTERFACE SYSTEM Refer to clinic/hospital department [facility] CLIA# [id number] [address] [place] [address] * (ABNORMAL) POC ISTAT EG 7+ (04/15/2008 4:13 AM CDT) PH 7.49(H) 7.35 - 7.45 Unit [facility] PO2 TEMP CORRECT 68(L) 80 - 105 mmHg [facility] O2 SATURATION 94(L) 95 - 98 % [facility] SPECIMEN TYPE Arterial [facility] Comment: Test Performed By [id number] Tidal volume: 500 PEEP: 06 Rate: 12 Pulse OX: 98 Hemoglobin calculated from Hematocrit result PCO2 TEMP CORRECT 48(H) 35 - 45 mmHg [facility] POTASSIUM 3.4(L) 3.5 - 4.9 mEq/L [facility] HEMOGLOBIN POC 9.2 +/-3 g/dL 12.0 - 16.0 g/dL [facility] PH TEMP CORRECT 7.49(H) 7.35 - 7.45 Unit [facility] TCO2 (CALC) POC 38(H) 23 - 27 mmol/l [facility] HCO3 (CALC) POC 36.7(H) 22.0 - 26.0 mmol/l [facility] FIO2 30 [facility] HEMATOCRIT ABG 27(L) 38 - 51 % [facility] PO2 68(L) 80 - 105 mmHg [facility] CALCIUM IONIZED 1.06(L) 1.12 - 1.32 mmol/l [facility] PCO2 POC 48(H) 35 - 45 mmHg [facility] BASE EXCESS 13(H) -2 - 3 mmol/l [facility] SODIUM 133(L) 138 - 146 mEq/L [facility] Arterial blood specimen (specimen) 04/15/2008 4:13 AM CDT 04/15/2008 4:27 AM CDT Riky Mejía MD POINT OF CARE TESTING COM F inal Result INTERFACE SYSTEM Refer to clinic/hospital department [facility]# [id number] [address] [place] [address] * XR CHEST PA OR AP (04/15/2008 [...] By: April Chaparro M.D. Date Signed: 04/15/08 [facility] Procedure Note April Chaparro MD - 04/15/2008 Exam: Chest - Portable Date/Time of Exam: Apr 15, 2008 4:08:09 AM History: Postoperative. Findings: Comparison study 04/14/08. Life support lines stable in position.Decreased lung volumes with bibasilar plate atelectasis. Cardiac silhouette stable and within normallimits. Impression: No significant change. - Dictated By: April Chaparro M.D. Electronically Signed By: April Chaparro M.D. Date Signed: 04/15/08 [facility] Heriberto Carrera MD DIAGNOSTIC IMAGING ORDERABLES Fi nal Result * (ABNORMAL) COMPREHENSIVE METABOLIC PANEL (04/15/2008 3:17 AM CDT) CALCIUM 7.9(L) 8.4 - 10.5 mg/dL [facility] CREATININE 0.6(L) 0.7 - 1.2 mg/dL [facility] ALT 40(H) 4 - 36 IU/L [facility] GLUCOSE 106 70 - 110 mg/dL [facility] CHLORIDE 95 95 - 110 mEq/L [facility] OSMOLALITY, CALCULATED 285 275 - 295 mOsm/Kg [facility] ALKALINE PHOSPHATASE 102(H) 25 - 100 U/L [facility] GLOBULIN (CALC) 2.5 2.4 - 3.9 g/dL [facility] SODIUM 137 136 - 145 mEq/L [facility] BILIRUBIN TOTAL 4.3(H) 0.3 - 1.2 mg/dL [facility] Comment: slightly icteric TOTAL PROTEIN 4.5(L) 6.3 - 8.2 g/dL [facility] BUN 20(H) 7 - 17 mg/dL [facility] AST 73(H) 8 - 33 U/L [facility] CO2 36(H) 22 - 32 mmol/l [facility] ALBUMIN/GLOBULIN RATIO 0.8(L) 1.0 - 2.3 [facility] ALBUMIN 2.0(L) 3.5 - 5.0 g/dL [facility] POTASSIUM 3.7 3.5 - 5.0 mEq/L [facility] ANION GAP 10 9 - 20 mEq/L [facility] Blood specimen (specimen) 04/15/2008 3:17 AM CDT 04/15/2008 3:36 AM CDT us Petr Carrillo MD CHEMISTRY ORDERABLES Final Re sult INTERFACE SYSTEM Refer to clinic/hospital department [facility] CLIA# [id number] [address] [place] [address] * (ABNORMAL) CBC WITH DIFFERENTIAL (04/15/2008 3:17 AM CDT) NEUTROPHIL ABSOLUTE 15.2(H) 2.0 - 8.0 K/ul [facility] HEMATOCRIT 26.7(L) 36.0 - 46.0 % [facility] PLATELETS 428 140 - 440 K/ul [facility] EOSINOPHIL ABSOLUTE 0.2 0.0 - 0.7 K/ul [facility] EOSINOPHILS 0.8 0.0 - 7.0 % [facility] PERIPHERAL BLOOD SMEAR REVIEW Automated Diff [facility] RBC 3.02(L) 4.20 - 5.40 Mil/ul [facility] MCHC 32.2 30.0 - 35.0 g/dL [facility] LYMPHOCYTE ABSOLUTE 1.3 1.2 - 4.0 K/ul [facility] LYMPHOCYTES 7.4(L) 24.0 - 44.0 % [facility] MCV 88.4 84.0 - 103.0 Fl [facility] BASOPHILS 0.5 0.0 - 1.0 % [facility] MPV 10.1 8.9 - 12.8 Fl [facility] BASOPHILS ABSOLUTE 0.1 0.0 - 0.2 K/ul [facility] HEMOGLOBIN 8.6(L) 12.0 - 16.0 g/dL [facility] MONOCYTES 5.6 2.0 - 10.0 % [facility] RDW 16.7(H) 11.0 - 14.5 % [facility] MONOCYTE ABSOLUTE 1.0(H) 0.1 - 0.6 K/ul [facility] WBC 17.7(H) 4.5 - 11.0 K/ul [facility] NEUTROPHILS 85.7(H) 42.2 - 75.2 % [facility] MCH 28.5 27.0 - 34.0 pg [facility] Blood specimen (specimen) 04/15/2008 3:17 AM CDT 04/15/2008 3:40 AM CDT us Petr Carrillo MD HEMATOLOGY ORDERABLES Final R esult INTERFACE SYSTEM Refer to clinic/hospital department [facility]# [id number] [address] [place] [address] * XR CHEST PA OR AP (04/14/2008 [...] Ari Ly Jr., M.D. Date Signed: 04/14/08 [facility] Procedure Note Ari Ly Jr. - 04/14/2008 [...] Ari Ly Jr., M.D. Date Signed: 04/14/08 [facility] us Riky Mejía MD DIAGNOSTIC IMAGING ORDERABL ES Final Result * (ABNORMAL) POC ISTAT EG 7+ (04/14/2008 3:23 AM CDT) SODIUM 134(L) 138 - 146 mEq/L [facility] PH 7.60(AA) 7.35 - 7.45 Unit [facility] PO2 TEMP CORRECT 92 80 - 105 mmHg [facility] O2 SATURATION 98 95 - 98 % [facility] SPECIMEN TYPE Arterial [facility] Comment: Test Performed By [id number] Critical result performed at the point of care. Pulse OX: 98 Hemoglobin calculated from Hematocrit result PCO2 TEMP CORRECT 41 35 - 45 mmHg [facility] POTASSIUM 3.9 3.5 - 4.9 mEq/L [facility] HEMOGLOBIN POC 10.9 +/-3 g/dL 12.0 - 16.0 g/dL [facility] PH TEMP CORRECT 7.60(AA) 7.35 - 7.45 Unit [facility] TCO2 (CALC) POC 41(H) 23 - 27 mmol/l [facility] HCO3 (CALC) POC 39.9(H) 22.0 - 26.0 mmol/l [facility] FIO2 45 [facility] HEMATOCRIT ABG 32(L) 38 - 51 % [facility] PO2 92 80 - 105 mmHg [facility] CALCIUM IONIZED 1.03(L) 1.12 - 1.32 mmol/l [facility] PCO2 POC 41 35 - 45 mmHg [facility] BASE EXCESS 18(H) -2 - 3 mmol/l [facility] Arterial blood specimen (specimen) 04/14/2008 3:23 AM CDT 04/14/2008 5:44 AM CDT us Riky Mejía MD POINT OF CARE TESTING COM F inal Result INTERFACE SYSTEM Refer to clinic/hospital department [facility] CLIA# [id number] [address] [place] [address] * (ABNORMAL) DIFFERENTIAL, MANUAL (04/14/2008 1:37 AM CDT) NEUTROPHILS, SEG 57 36 - 66 % [facility] METAMYELOCYTE 1 0 - 1 % [facility] POIKILOCYTES 1+(A) None Seen [facility] MONOCYTE 5 4 - 10 % [facility] RBC MORPHOLOGY Abnormal(A ) Normal [facility] BANDS 27(H) 0 - 6 % [facility] POLYCHROMASIA Present(A) None Seen [facility] MYELOCYTES 1 <=1 % [facility] EOSINOPHILS 1 0 - 3 % [facility] ANISOCYTOSIS 1+(A) None Seen [facility] LYMPHOCYTES 8(L) 24 - 44 % [facility] PLATELET EST. Normal Normal [facility] Comment: OCC PLATELET CLUMPS NOTED ON REVIEW OF SMEAR. Blood specimen (specimen) 04/14/2008 1:37 AM CDT 04/14/2008 1:40 AM CDT Narrative INTERFACE SYSTEM - 04/14/2008 2:01 AM CDT Differential ordered by policy. Riky Mejía MD HEMATOLOGY ORDERABLES COM F inal Result INTERFACE SYSTEM Refer to clinic/hospital department [facility] CLIA# [id number] [address] [place] [address] * (ABNORMAL) BASIC METABOLIC PANEL (04/14/2008 1:37 AM CDT) CALCIUM 8.1(L) 8.4 - 10.5 mg/dL [facility] GLUCOSE 108 70 - 110 mg/dL [facility] CHLORIDE 95 95 - 110 mEq/L [facility] ANION GAP 8(L) 9 - 20 mEq/L [facility] SODIUM 137 136 - 145 mEq/L [facility] BUN 26(H) 7 - 17 mg/dL [facility] CO2 38(H) 22 - 32 mmol/l [facility] POTASSIUM 4.1 3.5 - 5.0 mEq/L [facility] OSMOLALITY, CALCULATED 288 275 - 295 mOsm/Kg [facility] CREATININE 0.8 0.7 - 1.2 mg/dL [facility] Blood specimen (specimen) 04/14/2008 1:37 AM CDT 04/14/2008 1:40 AM CDT us Riky Mejía MD CHEMISTRY ORDERABLES Final Result Performing Organization Address [facility] Phone Number INTERFACE SYSTEM Refer to clinic/hospital department [facility] CLIA# [id number] [address] [place] [address] * (ABNORMAL) CBC WITH DIFFERENTIAL (04/14/2008 1:37 AM CDT) HEMATOCRIT 33.4(L) 36.0 - 46.0 % [facility] PLATELETS 429 140 - 440 K/ul [facility] RBC 3.77(L) 4.20 - 5.40 Mil/ul [facility] MCHC 33.2 30.0 - 35.0 g/dL [facility] MPV 10.1 8.9 - 12.8 Fl [facility] MCV 88.6 84.0 - 103.0 Fl [facility] HEMOGLOBIN 11.1(L) 12.0 - 16.0 g/dL [facility] RDW 16.4(H) 11.0 - 14.5 % [facility] WBC 16.6(H) 4.5 - 11.0 K/ul [facility] MCH 29.4 27.0 - 34.0 pg [facility] Blood specimen (specimen) 04/14/2008 1:37 AM CDT 04/14/2008 1:40 AM CDT us Riky Mejía MD HEMATOLOGY ORDERABLES Edite d Performing Organization Address [facility] de Phone Number INTERFACE SYSTEM Refer to clinic/hospital department [facility] CLIA# [id number] [address] [place] [address] * LACTIC ACID (04/13/2008 9:12 PM CDT) LACTIC ACID 1.4 0.5 - 2.2 mEq/L [facility] Blood specimen (specimen) 04/13/2008 9:12 PM CDT 04/13/2008 9:18 PM CDT us Riky Mejía MD CHEMISTRY ORDERABLES Final Result INTERFACE SYSTEM Refer to clinic/hospital department [facility] CLIA# [id number] [facility] [place] [address] * (ABNORMAL) POC ISTAT EG 7+ (04/13/2008 8:41 PM CDT) Pathologist [facility] POTASSIUM 3.8 3.5 - 4.9 mEq/L [facility] PH TEMP CORRECT 7.51(H) 7.35 - 7.45 Unit [facility] HCO3 (CALC) POC 43.9(H) 22.0 - 26.0 mmol/l [facility] TCO2 (CALC) POC 46(H) 23 - 27 mmol/l [facility] FIO2 55 [facility] PO2 129(H) 80 - 105 mmHg [facility] CALCIUM IONIZED 1.05(L) 1.12 - 1.32 mmol/l [facility] HEMATOCRIT ABG 36(L) 38 - 51 % [facility] PCO2 POC 56(H) 35 - 45 mmHg [facility] SODIUM 135(L) 138 - 146 mEq/L [facility] BASE EXCESS 21(H) -2 - 3 mmol/l [facility] PH 7.51(H) 7.35 - 7.45 Unit [facility] O2 SATURATION 99(H) 95 - 98 % [facility] PO2 TEMP CORRECT 129(H) 80 - 105 mmHg [facility] SPECIMEN TYPE Arterial [facility] Comment: Test Performed By [id number] PEEP: 10 Rate: 12 Pulse OX: 100 Hemoglobin calculated from Hematocrit result PCO2 TEMP CORRECT 56(H) 35 - 45 mmHg [facility] HEMOGLOBIN POC 12.2 +/-3 g/dL 12.0 - 16.0 g/dL [facility] Arterial blood specimen (specimen) 04/13/2008 8:41 PM CDT 04/13/2008 8:44 PM CDT Riky Mejía MD POINT OF CARE TESTING COM F inal Result Performing Organization Address [facility] de Phone Number INTERFACE SYSTEM Refer to clinic/hospital department [facility] CLIA# [id number] [address] [place] [address] * (ABNORMAL) POC GLUCOSE (04/13/2008 8:33 PM CDT) GLUCOSE POC 115(H) 60 - 100 mg/dL [facility] Venous blood specimen (specimen) 04/13/2008 8:33 PM CDT 04/14/2008 5:56 AM CDT Riky Mejía MD POINT OF CARE TESTING Final Result Performing Organization Address [facility] de Phone Number INTERFACE SYSTEM Refer to clinic/hospital department [facility] CLIA# [id number] [address] [place] [address] * (ABNORMAL) BASIC METABOLIC PANEL (04/13/2008 7:58 PM CDT) GLUCOSE 118(H) 70 - 110 mg/dL [facility] CHLORIDE 94(L) 95 - 110 mEq/L [facility] ANION GAP <9 9 - 20 mEq/L [facility] SODIUM 139 136 - 145 mEq/L [facility] BUN 17 7 - 17 mg/dL [facility] CO2 >40(H) 22 - 32 mmol/l [facility] POTASSIUM 3.9 3.5 - 5.0 mEq/L [facility] OSMOLALITY, CALCULATED 288 275 - 295 mOsm/Kg [facility] CREATININE 0.5(L) 0.7 - 1.2 mg/dL [facility] CALCIUM 8.4 8.4 - 10.5 mg/dL [facility] Blood specimen (specimen) 04/13/2008 7:58 PM CDT 04/13/2008 8:01 PM CDT Riky Mejía MD CHEMISTRY ORDERABLES Final Result INTERFACE SYSTEM Refer to clinic/hospital department [facility] CLIA# [id number] [address] [place] [address] * (ABNORMAL) CBC WITH DIFFERENTIAL (04/13/2008 7:58 PM CDT) MCV 91.0 84.0 - 103.0 Fl [facility] MPV 10.3 8.9 - 12.8 Fl [facility] BASOPHILS ABSOLUTE 0.1 0.0 - 0.2 K/ul [facility] BASOPHILS 0.4 0.0 - 1.0 % [facility] HEMOGLOBIN 11.6(L) 12.0 - 16.0 g/dL [facility] RDW 16.6(H) 11.0 - 14.5 % [facility] MONOCYTE ABSOLUTE 0.7(H) 0.1 - 0.6 K/ul [facility] MONOCYTES 4.2 2.0 - 10.0 % [facility] WBC 16.1(H) 4.5 - 11.0 K/ul [facility] MCH 29.7 27.0 - 34.0 pg [facility] NEUTROPHIL ABSOLUTE 14.1(H) 2.0 - 8.0 K/ul [facility] NEUTROPHILS 87.4(H) 42.2 - 75.2 % [facility] HEMATOCRIT 35.6(L) 36.0 - 46.0 % [facility] EOSINOPHILS 0.9 0.0 - 7.0 % [facility] PLATELETS 430 140 - 440 K/ul [facility] EOSINOPHIL ABSOLUTE 0.1 0.0 - 0.7 K/ul [facility] RBC 3.91(L) 4.20 - 5.40 Mil/ul [facility] LYMPHOCYTES 7.1(L) 24.0 - 44.0 % [facility] MCHC 32.6 30.0 - 35.0 g/dL [facility] LYMPHOCYTE ABSOLUTE 1.1(L) 1.2 - 4.0 K/ul [facility] Blood specimen (specimen) 04/13/2008 7:58 PM CDT 04/13/2008 8:01 PM CDT us Riky Mejía MD HEMATOLOGY ORDERABLES Final Result Performing Organization Address City/State/[facility] Phone Number INTERFACE SYSTEM Refer to clinic/hospital department [facility]# [id number] [address] [place] [id number] * XR CHEST PA OR AP (04/13/2008 [...] radiopaque tubes and lines that overlie the [id number]. There is vascular congestion, and there is [...] radiopaque tubes and lines that overlie the [id number]. There is vascular congestion,and there is likely a right lower lobe infiltrate that obscures the right diaphragm. - Dictated By: Riky Jarvis M.D. Electronically Signed By: Riky Jarvis M.D. Date Signed: 04/13/08 Riky Mejía MD DIAGNOSTIC IMAGING ORDERABL ES Final Result * (ABNORMAL) POC ISTAT EG 7+ (04/13/2008 6:02 PM CDT) TEMPERATURE 37.9 DegC [facility] PO2 138(H) 80 - 105 mmHg [facility] CALCIUM IONIZED 1.06(L) 1.12 - 1.32 mmol/l [facility] HEMATOCRIT ABG 29(L) 38 - 51 % [facility] SPECIMEN TYPE Arterial [facility] Comment: Test Performed By [id number] Critical result performed at the point of care. Sample not collected by [facility] Hemoglobin calculated from Hematocrit result PCO2 POC 39 35 - 45 mmHg [facility] SODIUM 134(L) 138 - 146 mEq/L [facility] BASE EXCESS 27(H) -2 - 3 mmol/l [facility] PH 7.69(AA) 7.35 - 7.45 Unit [facility] O2 SATURATION 100(H) 95 - 98 % [facility] PO2 TEMP CORRECT 144(H) 80 - 105 mmHg [facility] [facility] FIO2 100 [facility] HEMOGLOBIN POC 9.9 +/-3 g/dL 12.0 - 16.0 g/dL [facility] PCO2 TEMP CORRECT 41 35 - 45 mmHg [facility] POTASSIUM 3.3(L) 3.5 - 4.9 mEq/L [facility] PH TEMP CORRECT 7.67(AA) 7.35 - 7.45 Unit [facility] HCO3 (CALC) POC 47.0(H) 22.0 - 26.0 mmol/l [facility] TCO2 (CALC) POC 48(H) 23 - 27 mmol/l [facility] Arterial blood specimen (specimen) 04/13/2008 6:02 PM CDT 04/13/2008 6:19 PM CDT Riky Mejía MD POINT OF CARE TESTING COM F inal Result Performing Organization Address [facility] de Phone Number INTERFACE SYSTEM Refer to clinic/hospital department [facility] CLIA# [id number] [address] [place] [address] * LACTIC ACID (04/13/2008 5:36 PM CDT) [facility] LACTIC ACID 1.5 0.5 - 2.2 mEq/L [facility] Blood specimen (specimen) 04/13/2008 5:36 PM CDT 04/13/2008 5:36 PM CDT Riky Mejía MD CHEMISTRY ORDERABLES Final Result Performing Organization Address [facility] Phone Number INTERFACE SYSTEM Refer to clinic/hospital department [facility] CLIA# [id number] [facility] [place] [address] * TYPE AND CROSSMATCH (04/13/2008 5:34 PM CDT) [facility] BLOOD BANK PRODUCT INTERFACE SYSTEM Blood specimen (specimen) 04/13/2008 5:34 PM CDT 04/13/2008 5:34 PM CDT Riky Mejía MD BLOOD BANK ORDERABLES Final Result Performing Organization Address [facility] de Phone Number INTERFACE SYSTEM Refer to clinic/hospital department * ANTIBODY SCREEN (04/13/2008 5:34 PM CDT) Pathologist [facility] ANTIBODY SCREEN Negative [facility] Blood specimen (specimen) 04/13/2008 5:34 PM CDT 04/13/2008 5:34 PM CDT Riky Mejía MD BLOOD BANK ORDERABLES Edite d Performing Organization Address [facility] de Phone Number INTERFACE SYSTEM Refer to clinic/hospital department [facility] CLIA# [id number] [address] [place] [address] * ABORH TYPING (04/13/2008 5:34 PM CDT) Pathologist [facility] ABO/RH TYPE O Positive [facility] Blood specimen (specimen) 04/13/2008 5:34 PM CDT 04/13/2008 5:34 PM CDT us Riky Mejía MD BLOOD BANK ORDERABLES Final Result Performing Organization Address [facility] Phone Number INTERFACE SYSTEM Refer to clinic/hospital department [facility] CLIA# [id number] [address] [place] [address] * (ABNORMAL) BASIC METABOLIC PANEL (04/13/2008 5:29 PM CDT) CREATININE 0.6(L) 0.7 - 1.2 mg/dL [facility] CALCIUM 8.4 8.4 - 10.5 mg/dL [facility] GLUCOSE 118(H) 70 - 110 mg/dL [facility] CHLORIDE 91(L) 95 - 110 mEq/L [facility] SODIUM 141 136 - 145 mEq/L [facility] ANION GAP <14 9 - 20 mEq/L [facility] BUN 16 7 - 17 mg/dL [facility] CO2 >40(H) 22 - 32 mmol/l [facility] OSMOLALITY, CALCULATED 291 275 - 295 mOsm/Kg [facility] POTASSIUM 3.7 3.5 - 5.0 mEq/L [facility] Blood specimen (specimen) 04/13/2008 5:29 PM CDT 04/13/2008 5:30 PM CDT Narrative INTERFACE SYSTEM - 04/13/2008 6:20 PM CDT OR 9 us Riky Mejía MD CHEMISTRY ORDERABLES Final Result INTERFACE SYSTEM Refer to clinic/hospital department [facility] CLIA# [id number] [address] [place] [address] * PT AND APTT (04/13/2008 5:29 PM CDT) INR 1.1 [facility] Comment: Expected Values for INR: DVT/PE Goal INR 2.5; range 2.0 - 3.0 Valve Replacement Tissue Goal INR 2.5; range 2.0 - 3.0 Mechanical Goal INR 3.0; range 2.5 - 3.5 POST-VA Goal INR 2.5; range 2.0 - 3.0 or Goal 3.0; range 2.5 - 3.5 Atrial Fibrillation Goal INR 2.5; range 2.0 - 3.0 Ischemic Stroke Goal INR 2.5; range 2.0 - 3.0 For additional information see Guidelines for Anticoagulation available from the pharmacy Jolene Ramirez Pharm D. [phone] PTT 33.1 22.5 - 36.5 Secs [facility] Comment: Therapeutic Range: Hi-level PE/DVT heparin protocol 80.1 -95.0 sec Lo-level PE/DVT heparin protocol 67.1 - 80.0 sec Cardiac Heparin Protocol 67.1 - 85.0 sec Neuro Heparin Protocol 67.1 - 80.0 sec As of 09/25/2007 note change in APTT Normal Range. PROTIME 15.3 12.8 - 15.8 Secs [facility] Comment:As of 2007 not e change in normal range. Blood specimen (specimen) 04/13/2008 5:29 PM CDT 04/13/2008 5:30 PM CDT Narrative INTERFACE SYSTEM - 04/13/2008 5:48 PM CDT OR 9 us Riky Mejía MD HEMATOLOGY ORDERABLES Edite d INTERFACE SYSTEM Refer to clinic/hospital department [facility] CLIA# [id number] [facility] [place] [address] * (ABNORMAL) CBC WITH DIFFERENTIAL (04/13/2008 5:29 PM CDT) MCV 90.1 84.0 - 103.0 Fl [facility] BASOPHILS 0.3 0.0 - 1.0 % [facility] MPV 10.2 8.9 - 12.8 Fl [facility] BASOPHILS ABSOLUTE 0.0 0.0 - 0.2 K/ul [facility] HEMOGLOBIN 9.4(L) 12.0 - 16.0 g/dL [facility] MONOCYTES 4.3 2.0 - 10.0 % [facility] RDW 17.1(H) 11.0 - 14.5 % [facility] MONOCYTE ABSOLUTE 0.5 0.1 - 0.6 K/ul [facility] WBC 11.8(H) 4.5 - 11.0 K/ul [facility] NEUTROPHILS 81.9(H) 42.2 - 75.2 % [facility] MCH 29.0 27.0 - 34.0 pg [facility] NEUTROPHIL ABSOLUTE 9.7(H) 2.0 - 8.0 K/ul [facility] HEMATOCRIT 29.2(L) 36.0 - 46.0 % [facility] PLATELETS 414 140 - 440 K/ul [facility] EOSINOPHIL ABSOLUTE 0.2 0.0 - 0.7 K/ul [facility] EOSINOPHILS 1.4 0.0 - 7.0 % [facility] RBC 3.24(L) 4.20 - 5.40 Mil/ul [facility] MCHC 32.2 30.0 - 35.0 g/dL [facility] LYMPHOCYTE ABSOLUTE 1.4 1.2 - 4.0 K/ul [facility] LYMPHOCYTES 12.1(L) 24.0 - 44.0 % [facility] Blood specimen (specimen) 04/13/2008 5:29 PM CDT 04/13/2008 5:29 PM CDT Narrative INTERFACE SYSTEM - 04/13/2008 5:35 PM CDT OR 9 us Riky Mejía MD HEMATOLOGY ORDERABLES Final Result INTERFACE SYSTEM Refer to clinic/hospital department [facility] CLIA# [id number] [address] [place] [address] * (ABNORMAL) POC ISTAT EG 7+ (04/13/2008 5:26 PM CDT) PH 7.68(AA) 7.35 - 7.45 Unit [facility] O2 SATURATION 100(H) 95 - 98 % [facility] PO2 TEMP CORRECT 174(H) 80 - 105 mmHg [facility] FIO2 100 [facility] HEMOGLOBIN POC 9.5 +/-3 g/dL 12.0 - 16.0 g/dL [facility] PCO2 TEMP CORRECT 47(H) 35 - 45 mmHg [facility] POTASSIUM 3.5 3.5 - 4.9 mEq/L [facility] PH TEMP CORRECT 7.67(AA) 7.35 - 7.45 Unit [facility] HCO3 (CALC) POC 53.2(H) 22.0 - 26.0 mmol/l [facility] TCO2 (CALC) POC >50(H) 23 - 27 mmol/l [facility] TEMPERATURE 37.8 DegC [facility] PO2 170(H) 80 - 105 mmHg [facility] CALCIUM IONIZED 0.95(L) 1.12 - 1.32 mmol/l [facility] HEMATOCRIT ABG 28(L) 38 - 51 % [facility] SPECIMEN TYPE Arterial [facility] Comment: Test Performed By [id number] Critical result performed at the point of care. Sample not collected by [facility] Hemoglobin calculated from Hematocrit result PCO2 POC 45 35 - 45 mmHg [facility] SODIUM 135(L) 138 - 146 mEq/L [facility] BASE EXCESS >30(H) -2 - 3 mmol/l [facility] Arterial blood specimen (specimen) 04/13/2008 5:26 PM CDT 04/13/2008 5:34 PM CDT Riky Mejía MD POINT OF CARE TESTING COM F inal Result Performing Organization Address [facility] Co de Phone Number INTERFACE SYSTEM Refer to clinic/hospital department [facility] CLIA# [id number] [address] [place] [address] * MRSA CULTURE (04/13/2008 4:30 PM CDT) FINAL REPORT Culture screen for MRSA negative INTERFACE SYSTEM 04/13/2008 4:30 PM CDT 04/13/2008 6:57 PM CDT Riky Mejía MD MICROBIOLOGY - GENERAL ORDE RABLES Final Result Performing Organization Address [facility] de Phone Number INTERFACE SYSTEM Refer to clinic/hospital department documented in this encounter Visit Diagnoses Not on filedocumented in this encounter Additional Health Concerns Infection Onset Date Last Indicated Resolved Time MRSA Comment:Kapil 10/26/15 10/27/2015 10/27/2015 documented as of this encounter Care Teams Case Packer Relationship Specialty Start Date End Date Jose Bowers MD [address] [place] [id number] PCP - General 12/31/05 documented as of this encounter
--- OUTSIDE RECORDS SUMMARY | 2025-02-22 13:54 | XMS_ITS | Encounter Summary ---
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 Gender Identity Not on file Sexual Orientation Not on file documented as of this encounter Plan of Treatment Not on file documented as of this encounter Procedures Procedure Name Priority Date/Time Associated Diagnosis Comments POC GLUCOSE Routine 05/12/2008 7:37 AM FIBREGLASS LAMINATOR POC GLUCOSE Routine 05/11/2008 9:43 PM FIBREGLASS LAMINATOR POC GLUCOSE Routine 05/11/2008 5:35 PM FIBREGLASS LAMINATOR POC GLUCOSE Routine 05/11/2008 11:40 AM FIBREGLASS LAMINATOR POC GLUCOSE Routine 05/11/2008 7:38 AM FIBREGLASS LAMINATOR POC GLUCOSE Routine 05/10/2008 9:54 PM FIBREGLASS LAMINATOR POC GLUCOSE Routine 05/10/2008 5:34 PM FIBREGLASS LAMINATOR POC GLUCOSE Routine 05/10/2008 12:08 PM FIBREGLASS LAMINATOR POC GLUCOSE Routine 05/10/2008 8:31 AM FIBREGLASS LAMINATOR CBC WITH DIFFERENTIAL Routine 05/10/2008 5:47 AM FIBREGLASS LAMINATOR COMPREHENSIVE METABOLIC PANEL Routine 05/10/2008 5:47 AM FIBREGLASS LAMINATOR POC GLUCOSE Routine 05/09/2008 9:17 PM FIBREGLASS LAMINATOR POC GLUCOSE Routine 05/09/2008 6:31 PM FIBREGLASS LAMINATOR POC GLUCOSE Routine 05/09/2008 12:20 PM FIBREGLASS LAMINATOR POC GLUCOSE Routine 05/09/2008 8:50 AM FIBREGLASS LAMINATOR POC GLUCOSE Routine 05/08/2008 8:06 PM CDT [...] * (ABNORMAL) POC GLUCOSE (05/12/2008 7:37 AM FIBREGLASS LAMINATOR) GLUCOSE POC 124(H) 60 - 100 mg/dL [facility] Venous blood specimen (specimen) 05/12/2008 7:37 AM FIBREGLASS LAMINATOR 05/13/2008 3:52 AM FIBREGLASS LAMINATOR us Riky Mejía MD POINT OF CARE TESTING Final Result Performing Organization Address [facility] Phone Number INTERFACE SYSTEM Refer to clinic/hospital department [facility] CLIA# [id number] [address] [place] [address] * (ABNORMAL) POC GLUCOSE (05/11/2008 9:43 PM FIBREGLASS LAMINATOR) GLUCOSE POC 123(H) 60 - 100 mg/dL [facility] Venous blood specimen (specimen) 05/11/2008 9:43 PM FIBREGLASS LAMINATOR 05/12/2008 3:33 AM FIBREGLASS LAMINATOR us Riky Mejía MD POINT OF CARE TESTING Final Result Performing Organization Address [facility] de Phone Number INTERFACE SYSTEM Refer to clinic/hospital department [facility] CLIA# [id number] [address] [place] [address] * (ABNORMAL) POC GLUCOSE (05/11/2008 5:35 PM FIBREGLASS LAMINATOR) GLUCOSE POC 117(H) 60 - 100 mg/dL [facility] Venous blood specimen (specimen) 05/11/2008 5:35 PM FIBREGLASS LAMINATOR 05/12/2008 3:33 AM FIBREGLASS LAMINATOR Riky Mejía MD POINT OF CARE TESTING Final Result Performing Organization Address [facility] de Phone Number INTERFACE SYSTEM Refer to clinic/hospital department [facility] CLIA# [id number] [address] [place] [address] * (ABNORMAL) POC GLUCOSE (05/11/2008 11:40 AM FIBREGLASS LAMINATOR) GLUCOSE POC 132(H) 60 - 100 mg/dL [facility] Venous blood specimen (specimen) 05/11/2008 11:40 AM FIBREGLASS LAMINATOR 05/12/2008 3:30 AM FIBREGLASS LAMINATOR Riky Mejía MD POINT OF CARE TESTING Final Result Performing Organization Address [facility] Phone Number INTERFACE SYSTEM Refer to clinic/hospital department [facility] CLIA# [id number] [address] [place] [address] * (ABNORMAL) POC GLUCOSE (05/11/2008 7:38 AM FIBREGLASS LAMINATOR) GLUCOSE POC 121(H) 60 - 100 mg/dL [facility] Venous blood specimen (specimen) 05/11/2008 7:38 AM FIBREGLASS LAMINATOR 05/12/2008 3:33 AM FIBREGLASS LAMINATOR Riky Mejía MD POINT OF CARE TESTING Final Result Performing Organization Address [facility] de Phone Number INTERFACE SYSTEM Refer to clinic/[facility] CLIA# [id number] [address] [place] [address] * (ABNORMAL) POC GLUCOSE (05/10/2008 9:54 PM FIBREGLASS LAMINATOR) GLUCOSE POC 122(H) 60 - 100 mg/dL [facility] Venous blood specimen (specimen) 05/10/2008 9:54 PM FIBREGLASS LAMINATOR 05/11/2008 4:24 AM FIBREGLASS LAMINATOR Riky Meíja MD POINT OF CARE TESTING Final Result Performing Organization Address [facility] Phone Number INTERFACE SYSTEM Refer to clinic/hospital department [facility] CLIA# [id number] [address] [place] [address] * (ABNORMAL) POC GLUCOSE (05/10/2008 5:34 PM FIBREGLASS LAMINATOR) GLUCOSE POC 111(H) 60 - 100 mg/dL [facility] Venous blood specimen (specimen) 05/10/2008 5:34 PM FIBREGLASS LAMINATOR 05/11/2008 4:24 AM FIBREGLASS LAMINATOR Riky Mejía MD POINT OF CARE TESTING Final Result Performing Organization Address [facility] Phone Number INTERFACE SYSTEM Refer to clinic/hospital department [facility] CLIA# [id number] [address] [place] [address] * (ABNORMAL) POC GLUCOSE (05/10/2008 12:08 PM FIBREGLASS LAMINATOR) GLUCOSE POC 127(H) 60 - 100 mg/dL [facility] Venous blood specimen (specimen) 05/10/2008 12:08 PM FIBREGLASS LAMINATOR 05/11/2008 4:18 AM FIBREGLASS LAMINATOR Riky Mejía MD POINT OF CARE TESTING Final Result Performing Organization Address [facility] de Phone Number INTERFACE SYSTEM Refer to clinic/hospital department [facility] CLIA# [id number] [address] [place] [address] * (ABNORMAL) POC GLUCOSE (05/10/2008 8:31 AM FIBREGLASS LAMINATOR) GLUCOSE POC 122(H) 60 - 100 mg/dL [facility] Venous blood specimen (specimen) 05/10/2008 8:31 AM FIBREGLASS LAMINATOR 05/11/2008 4:18 AM FIBREGLASS LAMINATOR Riky Mejía MD POINT OF CARE TESTING Final Result INTERFACE SYSTEM Refer to clinic/hospital department [facility] CLIA# [id number] [address] [place] [address] * (ABNORMAL) COMPREHENSIVE METABOLIC PANEL (05/10/2008 5:47 AM FIBREGLASS LAMINATOR) GLOBULIN (CALC) 2.3(L) 2.4 - 3.9 g/dL [facility] SODIUM 141 136 - 145 mEq/L [facility] BILIRUBIN TOTAL 0.4 0.3 - 1.2 mg/dL [facility] TOTAL PROTEIN 5.0(L) 6.3 - 8.2 g/dL [facility] BUN 7 7 - 17 mg/dL [facility] AST 24 8 - 33 U/L [facility] CO2 30 22 - 32 mmol/l [facility] ALBUMIN/GLOBULIN RATIO 1.2 1.0 - 2.3 [facility] ALBUMIN 2.7(L) 3.5 - 5.0 g/dL [facility] POTASSIUM 3.3(L) 3.5 - 5.0 mEq/L [facility] ANION GAP 7(L) 9 - 20 mEq/L [facility] CALCIUM 8.0(L) 8.4 - 10.5 mg/dL [facility] CREATININE 0.4(L) 0.7 - 1.2 mg/dL [facility] ALT 10 4 - 36 IU/L [facility] GLUCOSE 99 70 - 110 mg/dL [facility] CHLORIDE 107 95 - 110 mEq/L [facility] OSMOLALITY, CALCULATED 286 275 - 295 mOsm/Kg [facility] ALKALINE PHOSPHATASE 73 25 - 100 U/L [facility] Blood specimen (specimen) 05/10/2008 5:47 AM FIBREGLASS LAMINATOR 05/10/2008 5:52 AM FIBREGLASS LAMINATOR Riky Mejía MD CHEMISTRY ORDERABLES Final Result INTERFACE SYSTEM Refer to clinic/hospital department [facility] CLIA# [id number] [facility] [place] [address] * (ABNORMAL) CBC WITH DIFFERENTIAL (05/10/2008 5:47 AM FIBREGLASS LAMINATOR) LYMPHOCYTE ABSOLUTE 0.9(L) 1.2 - 4.0 K/ul [facility] MCV 96.4 84.0 - 103.0 Fl [facility] MPV 10.1 8.9 - 12.8 Fl [facility] BASOPHILS ABSOLUTE 0.0 0.0 - 0.2 K/ul [facility] BASOPHILS 0.7 0.0 - 1.0 % [facility] HEMOGLOBIN 8.3(L) 12.0 - 16.0 g/dL [facility] RDW 18.6(H) 11.0 - 14.5 % [facility] MONOCYTE ABSOLUTE 0.6 0.1 - 0.6 K/ul [facility] MONOCYTES 9.3 2.0 - 10.0 % [facility] WBC 6.1 4.5 - 11.0 K/ul [facility] MCH 29.5 27.0 - 34.0 pg [facility] NEUTROPHIL ABSOLUTE 4.3 2.0 - 8.0 K/ul [facility] NEUTROPHILS 70.5 42.2 - 75.2 % [facility] HEMATOCRIT 27.1(L) 36.0 - 46.0 % [facility] EOSINOPHILS 4.1 0.0 - 7.0 % [facility] PLATELETS 278 140 - 440 K/ul [facility] PERIPHERAL BLOOD SMEAR REVIEW Automated Diff [facility] EOSINOPHIL ABSOLUTE 0.3 0.0 - 0.7 K/ul [facility] RBC 2.81(L) 4.20 - 5.40 Mil/ul [facility] LYMPHOCYTES 15.4(L) 24.0 - 44.0 % [facility] MCHC 30.6 30.0 - 35.0 g/dL [facility] Blood specimen (specimen) 05/10/2008 5:47 AM FIBREGLASS LAMINATOR 05/10/2008 5:52 AM FIBREGLASS LAMINATOR us Ottoniel Vanegas MD HEMATOLOGY ORDERABLES Teresa l Result Performing Organization Address [facility] Phone Number INTERFACE SYSTEM Refer to clinic/hospital department [facility] CLIA# [id number] [address] [place] [address] * (ABNORMAL) POC GLUCOSE (05/09/2008 9:17 PM FIBREGLASS LAMINATOR) COMMENT POC Follow Protocol [facility] GLUCOSE POC 116(H) 60 - 100 mg/dL [facility] Venous blood specimen (specimen) 05/09/2008 9:17 PM FIBREGLASS LAMINATOR 05/10/2008 3:50 AM FIBREGLASS LAMINATOR us Riky Mejía MD POINT OF CARE TESTING Final Result Performing Organization Address [facility] Phone Number INTERFACE SYSTEM Refer to clinic/hospital department [facility] CLIA# [id number] [address] [place] [address] * POC GLUCOSE (05/09/2008 6:31 PM FIBREGLASS LAMINATOR) GLUCOSE POC 96 60 - 100 mg/dL [facility] Venous blood specimen (specimen) 05/09/2008 6:31 PM FIBREGLASS LAMINATOR 05/10/2008 3:50 AM FIBREGLASS LAMINATOR us Riky Mejía MD POINT OF CARE TESTING Final Result Performing Organization Address [facility] de Phone Number INTERFACE SYSTEM Refer to clinic/hospital department [facility] CLIA# [id number] [address] [place] [address] * (ABNORMAL) POC GLUCOSE (05/09/2008 12:20 PM FIBREGLASS LAMINATOR) GLUCOSE POC 123(H) 60 - 100 mg/dL [facility] Venous blood specimen (specimen) 05/09/2008 12:20 PM FIBREGLASS LAMINATOR 05/10/2008 3:50 AM FIBREGLASS LAMINATOR Riky Mejía MD POINT OF CARE TESTING Final Result Performing Organization Address [facility] de Phone Number INTERFACE SYSTEM Refer to clinic/hospital department [facility] CLIA# [id number] [address] [place] [address] * (ABNORMAL) POC GLUCOSE (05/09/2008 8:50 AM FIBREGLASS LAMINATOR) GLUCOSE POC 139(H) 60 - 100 mg/dL [facility] Venous blood specimen (specimen) 05/09/2008 8:50 AM FIBREGLASS LAMINATOR 05/10/2008 3:50 AM FIBREGLASS LAMINATOR Riky Mejía MD POINT OF CARE TESTING Final Result Performing Organization Address [facility] de Phone Number INTERFACE SYSTEM Refer to clinic/hospital department [facility] CLIA# [id number] [address] [place] [address] * (ABNORMAL) POC GLUCOSE (05/08/2008 8:06 PM CDT) GLUCOSE POC 115(H) 60 - 100 mg/dL [facility] COMMENT POC Recheck result [facility] Venous blood specimen (specimen) 05/08/2008 8:06 PM CDT 05/10/2008 7:16 AM FIBREGLASS LAMINATOR Riky Mejía MD POINT OF CARE TESTING Final Result Performing Organization Address [facility] de Phone Number INTERFACE SYSTEM Refer to clinic/hospital department [facility] CLIA# [id number] [address] [place] [address] * (ABNORMAL) POC GLUCOSE (05/08/2008 6:26 PM CDT) COMMENT POC Recheck result [facility] GLUCOSE POC 119(H) 60 - 100 mg/dL [facility] Venous blood specimen (specimen) 05/08/2008 6:26 PM CDT 05/10/2008 7:16 AM FIBREGLASS LAMINATOR Riky Mejía MD POINT OF CARE TESTING Final Result Performing Organization Address [facility] de Phone Number INTERFACE SYSTEM Refer to clinic/hospital department [facility] CLIA# [id number] [address] [place] [address] * (ABNORMAL) POC GLUCOSE (05/08/2008 12:27 PM CDT) [facility] GLUCOSE POC 130(H) 60 - 100 mg/dL [facility] Venous blood specimen (specimen) 05/08/2008 12:27 PM CDT 05/09/2008 1:13 AM CDT Riky Mejía MD POINT OF CARE TESTING Final Result Performing Organization Address [facility] Phone Number INTERFACE SYSTEM Refer to clinic/hospital department [facility] CLIA# [id number] [address] [place] [address] * (ABNORMAL) CBC WITH DIFFERENTIAL (05/08/2008 7:35 AM CDT) HEMOGLOBIN 8.0(L) 12.0 - 16.0 g/dL [facility] MONOCYTES 8.7 2.0 - 10.0 % [facility] RDW 18.5(H) 11.0 - 14.5 % [facility] MONOCYTE ABSOLUTE 0.7(H) 0.1 - 0.6 K/ul [facility] WBC 7.5 4.5 - 11.0 K/ul [facility] NEUTROPHILS 73.3 42.2 - 75.2 % [facility] MCH 29.7 27.0 - 34.0 pg [facility] NEUTROPHIL ABSOLUTE 5.5 2.0 - 8.0 K/ul [facility] HEMATOCRIT 25.8(L) 36.0 - 46.0 % [facility] PLATELETS 219 140 - 440 K/ul [facility] EOSINOPHIL ABSOLUTE 0.3 0.0 - 0.7 K/ul [facility] EOSINOPHILS 4.3 0.0 - 7.0 % [facility] RBC 2.69(L) 4.20 - 5.40 Mil/ul [facility] MCHC 31.0 30.0 - 35.0 g/dL [facility] LYMPHOCYTE ABSOLUTE 0.9(L) 1.2 - 4.0 K/ul [facility] LYMPHOCYTES 12.6(L) 24.0 - 44.0 % [facility] MCV 95.9 84.0 - 103.0 Fl [facility] BASOPHILS 1.1(H) 0.0 - 1.0 % [facility] MPV 10.6 8.9 - 12.8 Fl [facility] BASOPHILS ABSOLUTE 0.1 0.0 - 0.2 K/ul [facility] Blood specimen (specimen) 05/08/2008 7:35 AM CDT 05/08/2008 7:48 AM CDT us Riky Mejía MD HEMATOLOGY ORDERABLES Final Result INTERFACE SYSTEM Refer to clinic/hospital department [facility] CLIA# [id number] [facility] [place] [address] * (ABNORMAL) POC GLUCOSE (05/08/2008 5:15 AM CDT) GLUCOSE POC 132(H) 60 - 100 mg/dL [facility] Venous blood specimen (specimen) 05/08/2008 5:15 AM CDT 05/09/2008 1:13 AM CDT Riky Mejía MD POINT OF CARE TESTING Final Result Performing Organization Address [facility] de Phone Number INTERFACE SYSTEM Refer to clinic/hospital department [facility] CLIA# [id number] [address] [place] [address] * (ABNORMAL) POC GLUCOSE (05/07/2008 8:43 PM CDT) GLUCOSE POC 137(H) 60 - 100 mg/dL [facility] COMMENT POC Recheck result [facility] Venous blood specimen (specimen) 05/07/2008 8:43 PM CDT 05/10/2008 7:16 AM FIBREGLASS LAMINATOR Riky Mejía MD POINT OF CARE TESTING Final Result Performing Organization Address [facility] de Phone Number INTERFACE SYSTEM Refer to clinic/hospital department [facility] CLIA# [id number] [address] [place] [address] * (ABNORMAL) POC GLUCOSE (05/07/2008 5:13 PM CDT) GLUCOSE POC 137(H) 60 - 100 mg/dL [facility] COMMENT POC Recheck result [facility] Venous blood specimen (specimen) 05/07/2008 5:13 PM CDT 05/10/2008 7:16 AM FIBREGLASS LAMINATOR Riky Mejía MD POINT OF CARE TESTING Final Result Performing Organization Address [facility] de Phone Number INTERFACE SYSTEM Refer to clinic/hospital department [facility] CLIA# [id number] [address] [place] [address] * (ABNORMAL) POC GLUCOSE (05/07/2008 12:06 PM CDT) COMMENT POC Notify RN [facility] GLUCOSE POC 159(H) 60 - 100 mg/dL [facility] Venous blood specimen (specimen) 05/07/2008 12:06 PM CDT 05/08/2008 3:26 AM CDT Riky Mejía MD POINT OF CARE TESTING Final Result Performing Organization Address [facility] de Phone Number INTERFACE SYSTEM Refer to clinic/hospital department [facility] CLIA# [id number] [address] [place] [address] * (ABNORMAL) POC GLUCOSE (05/07/2008 8:20 AM CDT) GLUCOSE POC 135(H) 60 - 100 mg/dL [facility] COMMENT POC Notify R.N [facility] Venous blood specimen (specimen) 05/07/2008 8:20 AM CDT 05/08/2008 3:26 AM CDT Riky Mejía MD POINT OF CARE TESTING Final Result Performing Organization Address [facility] de Phone Number INTERFACE SYSTEM Refer to clinic/hospital department [facility] CLIA# [id number] [address] [place] [address] * (ABNORMAL) POC GLUCOSE (05/07/2008 5:22 AM CDT) GLUCOSE POC 133(H) 60 - 100 mg/dL [facility] Venous blood specimen (specimen) 05/07/2008 5:22 AM CDT 05/08/2008 3:25 AM CDT us Riky Mejía MD POINT OF CARE TESTING Final Result Performing Organization Address [facility] de Phone Number INTERFACE SYSTEM Refer to clinic/hospital department [facility] CLIA# [id number] [address] [place] [address] * (ABNORMAL) POC GLUCOSE (05/06/2008 8:39 PM CDT) GLUCOSE POC 116(H) 60 - 100 mg/dL [facility] COMMENT POC Notify R.N [facility] Venous blood specimen (specimen) 05/06/2008 8:39 PM CDT 05/07/2008 3:27 AM CDT us Riky Mejía MD POINT OF CARE TESTING Final Result INTERFACE SYSTEM Refer to clinic/hospital department [facility] CLIA# [id number] [address] [place] [address] * CT ABDOMEN PELVIS W CONTRAST (05/06/2008 [...] GLUCOSE POC 126(H) 60 - 100 mg/dL [facility] Venous blood specimen (specimen) 05/06/2008 5:38 PM CDT 05/07/2008 3:27 AM CDT Riky Mejía MD POINT OF CARE TESTING Final Result Performing Organization Address [facility] de Phone Number INTERFACE SYSTEM Refer to clinic/hospital department [facility] CLIA# [id number] [address] [place] [address] * (ABNORMAL) POC GLUCOSE (05/06/2008 12:55 PM CDT) GLUCOSE POC 120(H) 60 - 100 mg/dL [facility] Venous blood specimen (specimen) 05/06/2008 12:55 PM CDT 05/07/2008 3:27 AM CDT Riky Mejía MD POINT OF CARE TESTING Final Result Performing Organization Address [facility] Phone Number INTERFACE SYSTEM Refer to clinic/hospital department [facility] CLIA# [id number] [address] [place] [address] * (ABNORMAL) POC GLUCOSE (05/06/2008 8:03 AM CDT) GLUCOSE POC 134(H) 60 - 100 mg/dL [facility] Venous blood specimen (specimen) 05/06/2008 8:03 AM CDT 05/07/2008 3:24 AM CDT Riky Mejía MD POINT OF CARE TESTING Final Result Performing Organization Address [facility] de Phone Number INTERFACE SYSTEM Refer to clinic/hospital [facility] CLIA# [id number] [address] [place] [address] * (ABNORMAL) BASIC METABOLIC PANEL (05/06/2008 5:34 AM CDT) CREATININE 0.5(L) 0.7 - 1.2 mg/dL [facility] CALCIUM 8.1(L) 8.4 - 10.5 mg/dL [facility] GLUCOSE 111(H) 70 - 110 mg/dL [facility] CHLORIDE 107 95 - 110 mEq/L [facility] ANION GAP 11 9 - 20 mEq/L [facility] SODIUM 137 136 - 145 mEq/L [facility] BUN 10 7 - 17 mg/dL [facility] CO2 23 22 - 32 mmol/l [facility] POTASSIUM 3.7 3.5 - 5.0 mEq/L [facility] OSMOLALITY, CALCULATED 281 275 - 295 mOsm/Kg [facility] Blood specimen (specimen) 05/06/2008 5:34 AM CDT 05/06/2008 5:34 AM CDT us Riky Mejía MD CHEMISTRY ORDERABLES Final Result INTERFACE SYSTEM Refer to clinic/hospital department [facility] CLIA# [id number] [address] [place] [address] * (ABNORMAL) CBC WITH DIFFERENTIAL (05/06/2008 5:34 AM CDT) LYMPHOCYTES 11.5(L) 24.0 - 44.0 % [facility] MCHC 30.9 30.0 - 35.0 g/dL [facility] LYMPHOCYTE ABSOLUTE 0.9(L) 1.2 - 4.0 K/ul [facility] MCV 96.3 84.0 - 103.0 Fl [facility] MPV 11.1 8.9 - 12.8 Fl [facility] BASOPHILS ABSOLUTE 0.0 0.0 - 0.2 K/ul [facility] BASOPHILS 0.4 0.0 - 1.0 % [facility] HEMOGLOBIN 8.0(L) 12.0 - 16.0 g/dL [facility] RDW 18.5(H) 11.0 - 14.5 % [facility] MONOCYTE ABSOLUTE 0.7(H) 0.1 - 0.6 K/ul [facility] MONOCYTES 9.2 2.0 - 10.0 % [facility] WBC 7.7 4.5 - 11.0 K/ul [facility] MCH 29.7 27.0 - 34.0 pg [facility] NEUTROPHIL ABSOLUTE 5.8 2.0 - 8.0 K/ul [facility] NEUTROPHILS 75.3(H) 42.2 - 75.2 % [facility] HEMATOCRIT 25.9(L) 36.0 - 46.0 % [facility] EOSINOPHILS 3.6 0.0 - 7.0 % [facility] PLATELETS 203 140 - 440 K/ul [facility] PERIPHERAL BLOOD SMEAR REVIEW Automated Diff [facility] EOSINOPHIL ABSOLUTE 0.3 0.0 - 0.7 K/ul [facility] RBC 2.69(L) 4.20 - 5.40 Mil/ul [facility] Blood specimen (specimen) 05/06/2008 5:34 AM CDT 05/06/2008 5:34 AM CDT us Riky Mejía MD HEMATOLOGY ORDERABLES Final Result Performing Organization Address City/[facility] de Phone Number INTERFACE SYSTEM Refer to clinic/hospital department [facility] CLIA# [id number] [place] [id number] * (ABNORMAL) POC GLUCOSE (05/05/2008 8:26 PM CDT) GLUCOSE POC 157(H) 60 - 100 mg/dL [facility] Venous blood specimen (specimen) 05/05/2008 8:26 PM CDT 05/06/2008 3:31 AM CDT us Riky Mejía MD POINT OF CARE TESTING Final Result Performing Organization Address [facility] [place] de Phone Number INTERFACE SYSTEM Refer to clinic/hospital department [facility] CLIA# [id number] [address] [place] [address] * (ABNORMAL) POC GLUCOSE (05/05/2008 4:57 PM CDT) GLUCOSE POC 124(H) 60 - 100 mg/dL [facility] Venous blood specimen (specimen) 05/05/2008 4:57 PM CDT 05/06/2008 3:31 AM CDT Riky Mejía MD POINT OF CARE TESTING Final Result Performing Organization Address [facility] [place]/[facility] de Phone Number INTERFACE SYSTEM Refer to clinic/hospital department [facility] CLIA# [id number] [address] [place] [address] * (ABNORMAL) POC GLUCOSE (05/05/2008 11:30 AM CDT) GLUCOSE POC 127(H) 60 - 100 mg/dL [facility] Venous blood specimen (specimen) 05/05/2008 11:30 AM CDT 05/06/2008 3:31 AM CDT Riky Mejía MD POINT OF CARE TESTING Final Result Performing Organization Address [facility] [place]/[facility] de Phone Number INTERFACE SYSTEM Refer to clinic/hospital department [facility] CLIA# [id number] [address] [place] [address] * (ABNORMAL) POC GLUCOSE (05/05/2008 8:05 AM CDT) GLUCOSE POC 137(H) 60 - 100 mg/dL [facility] Venous blood specimen (specimen) 05/05/2008 8:05 AM CDT 05/06/2008 3:31 AM CDT Riky Mejía MD POINT OF CARE TESTING Final Result Performing Organization Address [facility] [place]/[facility] de Phone Number INTERFACE SYSTEM Refer to clinic/hospital department [facility] CLIA# [id number] [address] [place] [address] * (ABNORMAL) POC GLUCOSE (05/04/2008 9:56 PM CDT) GLUCOSE POC 115(H) 60 - 100 mg/dL [facility] Venous blood specimen (specimen) 05/04/2008 9:56 PM CDT 05/05/2008 2:27 AM CDT Riky Mejía MD POINT OF CARE TESTING Final Result Performing Organization Address [facility] [place]/[facility] de Phone Number INTERFACE SYSTEM Refer to clinic/hospital department [facility] CLIA# [id number] [address] [place] [address] * (ABNORMAL) POC GLUCOSE (05/04/2008 5:34 PM CDT) GLUCOSE POC 120(H) 60 - 100 mg/dL [facility] Venous blood specimen (specimen) 05/04/2008 5:34 PM CDT 05/05/2008 5:02 AM CDT Riky Mejía MD POINT OF CARE TESTING Final Result Performing Organization Address [facility] [place]/[facility] de Phone Number INTERFACE SYSTEM Refer to clinic/hospital department [facility] CLIA# [id number] [address] [place] [address] * (ABNORMAL) POC GLUCOSE (05/04/2008 11:15 AM CDT) GLUCOSE POC 133(H) 60 - 100 mg/dL [facility] Venous blood specimen (specimen) 05/04/2008 11:15 AM CDT 05/05/2008 2:27 AM CDT Riky Mejía MD POINT OF CARE TESTING Final Result Performing Organization Address [facility] [place]/[facility] Co de Phone Number INTERFACE SYSTEM Refer to clinic/hospital department [facility] CLIA# [id number] [address] [place] [address] * URINE CULTURE (05/04/2008 9:06 AM CDT) FINAL REPORT No growth INTERFA CE SYSTEM 05/04/2008 9:06 AM CDT 05/04/2008 9:06 AM CDT us Riky Mejía MD MICROBIOLOGY - [facility] Final Result Performing Organization Address [facility] [place]/[facility] Phone Number INTERFACE SYSTEM Refer to clinic/hospital department * (ABNORMAL) POC GLUCOSE (05/04/2008 7:37 AM CDT) GLUCOSE POC 139(H) 60 - 100 mg/dL [facility] Venous blood specimen (specimen) 05/04/2008 7:37 AM CDT 05/05/2008 2:27 AM CDT us Riky Mejía MD POINT OF CARE TESTING Final Result Performing Organization Address [facility] Phone Number INTERFACE SYSTEM Refer to clinic/hospital department [facility] CLIA# [id number] [address] [place], [place] [address] * (ABNORMAL) URINALYSIS MICROSCOPY ONLY (05/04/2008 2:12 AM CDT) HYALINE CAST None Seen 0 - 2 [facility] WBC URINE 0-2 0 - 2 [facility] BACTERIA UA Small(A) None Seen [facility] RBC UA 6-10(A) 0 - 2 [facility] Urine specimen (specimen) 05/04/2008 2:12 AM CDT 05/04/2008 2:12 AM CDT Narrative INTERFACE SYSTEM - 05/04/2008 2:30 AM CDT Microscopic ordered by policy us Riky Mejía MD URINE ORDERABLES Final Resu lt Performing Organization Address [facility] [place]/[facility] Phone Number INTERFACE SYSTEM Refer to clinic/hospital department [facility] CLIA# [id number] [address] [place] [address] * ICTOTEST (05/04/2008 2:12 AM CDT) Pathologist [facility] ICTO Negative Negative [facility] Urine specimen (specimen) 05/04/2008 2:12 AM CDT 05/04/2008 2:12 AM CDT Narrative INTERFACE SYSTEM - 05/04/2008 2:30 AM CDT Bili verified by ictotest us Riky Mejía MD URINE ORDERABLES Final Resu lt Performing Organization Address [facility] [place]/[facility] de Phone Number INTERFACE SYSTEM Refer to clinic/hospital department [facility] CLIA# [id number] [address] [place] [address] * (ABNORMAL) URINALYSIS (05/04/2008 2:12 AM CDT) Pathologist [facility] LEUKOCYTE ESTERASE UA NEGATIVE NEGATIVE [facility] KETONES UA Trace(A) NEGATIVE [facility] COLOR UA Yellow Straw [facility] PROTEIN UA 100 mg/dl(A) NEGATIVE [facility] SPECIFIC GRAVITY UA 1.010 <=1.005 [facility] NITRITE UA NEGATIVE NEGATIVE [facility] UROBILINOGEN UA 0.2 0.2 [facility] CLARITY UA Clear Clear [facility] GLUCOSE UA NEGATIVE NEGATIVE [facility] MICRO EXAM Yes(A) No [facility] PH UA 6.5 5.0 - 9.0 [facility] BLOOD UA MODERATE(A) NEGATIVE [facility] Urine specimen (specimen) 05/04/2008 2:12 AM CDT 05/04/2008 2:12 AM CDT us Riky Mejía MD URINE ORDERABLES Final Resu lt Performing Organization Address [facility] [place]/[facility] de Phone Number INTERFACE SYSTEM Refer to clinic/hospital department [facility] CLIA# [id number] [address] [place] [address] * BLOOD CULTURE (05/04/2008 2:02 AM CDT) Pathologist [facility] FINAL REPORT No growth INTERFA CE SYSTEM Blood specimen (specimen) 05/04/2008 2:02 AM CDT 05/04/2008 3:36 AM CDT us Riky Mejía MD [facility] Final Result Performing Organization Address [facility] [place]/[facility] Phone Number INTERFACE SYSTEM Refer to clinic/hospital department * (ABNORMAL) BASIC METABOLIC PANEL (05/04/2008 1:55 AM CDT) Pathologist [facility] OSMOLALITY, CALCULATED 282 275 - 295 mOsm/Kg [facility] POTASSIUM 4.3 3.5 - 5.0 mEq/L [facility] CREATININE 0.6(L) 0.7 - 1.2 mg/dL [facility] CALCIUM 9.0 8.4 - 10.5 mg/dL [facility] GLUCOSE 120(H) 70 - 110 mg/dL [facility] CHLORIDE 108 95 - 110 mEq/L [facility] SODIUM 135(L) 136 - 145 mEq/L [facility] ANION GAP 10 9 - 20 mEq/L [facility] BUN 17 7 - 17 mg/dL [facility] CO2 21(L) 22 - 32 mmol/l [facility] Blood specimen (specimen) 05/04/2008 1:55 AM CDT 05/04/2008 2:49 AM CDT us Riky Mejía MD CHEMISTRY ORDERABLES Final Result Performing Organization Address [facility] [place]/[facility] de Phone Number INTERFACE SYSTEM Refer to clinic/hospital department [facility] CLIA# [id number] [address] [place] [address] * (ABNORMAL) CBC WITH DIFFERENTIAL (05/04/2008 1:55 AM CDT) PERIPHERAL BLOOD SMEAR REVIEW Automated Diff [facility] EOSINOPHIL ABSOLUTE 0.2 0.0 - 0.7 K/ul [facility] RBC 2.86(L) 4.20 - 5.40 Mil/ul [facility] MCHC 31.6 30.0 - 35.0 g/dL [facility] LYMPHOCYTES 11.5(L) 24.0 - 44.0 % [facility] LYMPHOCYTE ABSOLUTE 1.0(L) 1.2 - 4.0 K/ul [facility] MCV 96.2 84.0 - 103.0 Fl [facility] MPV 11.1 8.9 - 12.8 Fl [facility] BASOPHILS ABSOLUTE 0.0 0.0 - 0.2 K/ul [facility] BASOPHILS 0.4 0.0 - 1.0 % [facility] HEMOGLOBIN 8.7(L) 12.0 - 16.0 g/dL [facility] RDW 18.6(H) 11.0 - 14.5 % [facility] MONOCYTE ABSOLUTE 1.0(H) 0.1 - 0.6 K/ul [facility] MONOCYTES 10.9(H) 2.0 - 10.0 % [facility] WBC 8.9 4.5 - 11.0 K/ul [facility] NEUTROPHILS 75.1 42.2 - 75.2 % [facility] MCH 30.4 27.0 - 34.0 pg [facility] NEUTROPHIL ABSOLUTE 6.7 2.0 - 8.0 K/ul [facility] HEMATOCRIT 27.5(L) 36.0 - 46.0 % [facility] PLATELETS 180 140 - 440 K/ul [facility] EOSINOPHILS 2.1 0.0 - 7.0 % [facility] Blood specimen (specimen) 05/04/2008 1:55 AM CDT 05/04/2008 2:25 AM CDT us Riky Mejía MD HEMATOLOGY ORDERABLES Final Result Performing Organization Address [facility] [place]/[facility] de Phone Number INTERFACE SYSTEM Refer to clinic/hospital department [facility] CLIA# [id number] [address] [place] [address] * BLOOD CULTURE (05/04/2008 1:55 AM CDT) FINAL REPORT No growth INTERFA CE SYSTEM REPORT/SPECIM EN COMMENT Specimen processed with suboptimal blood volume. Recommended adult blood volume is 8-10 mL per bottle. INTERFACE SYSTEM Blood specimen (specimen) 05/04/2008 1:55 AM CDT 05/04/2008 3:36 AM CDT us Riky Mejía MD MICROBIOLOGY - GENERAL ORDE [facility] Final Result Performing Organization Address [facility] [place]/[facility] Phone Number INTERFACE SYSTEM Refer to clinic/hospital department * (ABNORMAL) POC GLUCOSE (05/03/2008 9:24 PM CDT) GLUCOSE POC 137(H) 60 - 100 mg/dL [facility] Venous blood specimen (specimen) 05/03/2008 9:24 PM CDT 05/04/2008 4:27 AM CDT us Riky Mejía MD POINT OF CARE TESTING Final Result Performing Organization Address [facility] [place]/[facility] Phone Number INTERFACE SYSTEM Refer to clinic/hospital department [facility] CLIA# [id number] [facility] [place] [address] * (ABNORMAL) POC GLUCOSE (05/03/2008 4:35 PM CDT) GLUCOSE POC 128(H) 60 - 100 mg/dL [facility] Venous blood specimen (specimen) 05/03/2008 4:35 PM CDT 05/04/2008 4:27 AM CDT us Riky Mejía MD POINT OF CARE TESTING Final Result INTERFACE SYSTEM Refer to clinic/hospital department [facility] CLIA# [id number] [place] [address] * CT ABDOMEN PELVIS W CONTRAST (05/03/2008 [...] mm volumetric acquisition with 125 mL intravenous [id number]. Comparison: None. Findings: Consolidative atelectasis versus airspace [...] APTT (05/03/2008 9:00 AM CDT) INR 1.3 [facility] Comment: Expected Values for INR: DVT/PE Goal INR 2.5; range 2.0 - 3.0 Valve Replacement Tissue Goal INR 2.5; range 2.0 - 3.0 Mechanical Goal INR 3.0; range 2.5 - 3.5 POST-FL Goal INR 2.5; range 2.0 - 3.0 or Goal 3.0; range 2.5 - 3.5 Atrial Fibrillation Goal INR 2.5; range 2.0 - 3.0 Ischemic Stroke Goal INR 2.5; range 2.0 - 3.0 For additional information see Guidelines for Anticoagulation available from the pharmacy [facility]. [phone] PTT 38.5(H) 22.5 - 36.5 Secs [facility] Comment: Therapeutic Range: Hi-level PE/DVT heparin protocol 80.1 -95.0 sec Lo-level PE/DVT heparin protocol 67.1 - 80.0 sec Cardiac Heparin Protocol 67.1 - 85.0 sec Neuro Heparin Protocol 67.1 - 80.0 sec As of 09/25/2007 note change in APTT Normal Range. PROTIME 18.0(H) 12.8 - 15.8 Secs [facility] Comment:As of 2007 not e change in normal range. Blood specimen (specimen) 05/03/2008 9:00 AM CDT 05/03/2008 9:10 AM CDT Narrative INTERFACE SYSTEM - 05/03/2008 9:23 AM CDT use blood in the lab us Riky Mejía MD HEMATOLOGY ORDERABLES Edite d INTERFACE SYSTEM Refer to clinic/hospital department [facility] CLIA# [id number] [address] [place] [address] * (ABNORMAL) BASIC METABOLIC PANEL (05/03/2008 5:39 AM CDT) GLUCOSE 122(H) 70 - 110 mg/dL [facility] CHLORIDE 106 95 - 110 mEq/L [facility] SODIUM 135(L) 136 - 145 mEq/L [facility] ANION GAP 14 9 - 20 mEq/L [facility] BUN 20(H) 7 - 17 mg/dL [facility] CO2 20(L) 22 - 32 mmol/l [facility] OSMOLALITY, CALCULATED 284 275 - 295 mOsm/Kg [facility] POTASSIUM 5.0 3.5 - 5.0 mEq/L [facility] CREATININE 0.6(L) 0.7 - 1.2 mg/dL [facility] CALCIUM 9.1 8.4 - 10.5 mg/dL [facility] Blood specimen (specimen) 05/03/2008 5:39 AM CDT 05/03/2008 6:15 AM CDT us Riky Mejía MD CHEMISTRY ORDERABLES Final Result INTERFACE SYSTEM Refer to clinic/hospital department [facility] CLIA# [id number] [address] [place] [address] * (ABNORMAL) CBC WITH DIFFERENTIAL (05/03/2008 5:39 AM CDT) HEMATOCRIT 28.4(L) 36.0 - 46.0 % [facility] LYMPHOCYTE ABSOLUTE 0.6(L) 1.2 - 4.0 K/ul [facility] LYMPHOCYTES 5.9(L) 24.0 - 44.0 % [facility] MCHC 31.3 30.0 - 35.0 g/dL [facility] BASOPHILS 0.2 0.0 - 1.0 % [facility] MPV 10.9 8.9 - 12.8 Fl [facility] WBC 10.2 4.5 - 11.0 K/ul [facility] BASOPHILS ABSOLUTE 0.0 0.0 - 0.2 K/ul [facility] PERIPHERAL BLOOD SMEAR REVIEW Automated Diff [facility] MCV 96.3 84.0 - 103.0 Fl [facility] MONOCYTES 9.9 2.0 - 10.0 % [facility] RDW 18.3(H) 11.0 - 14.5 % [facility] MONOCYTE ABSOLUTE 1.0(H) 0.1 - 0.6 K/ul [facility] RBC 2.95(L) 4.20 - 5.40 Mil/ul [facility] HEMOGLOBIN 8.9(L) 12.0 - 16.0 g/dL [facility] NEUTROPHILS 82.5(H) 42.2 - 75.2 % [facility] NEUTROPHIL ABSOLUTE 8.5(H) 2.0 - 8.0 K/ul [facility] MCH 30.2 27.0 - 34.0 pg [facility] PLATELETS 163 140 - 440 K/ul [facility] EOSINOPHIL ABSOLUTE 0.2 0.0 - 0.7 K/ul [facility] EOSINOPHILS 1.5 0.0 - 7.0 % [facility] Blood specimen (specimen) 05/03/2008 5:39 AM CDT 05/03/2008 6:15 AM CDT Riky Mejía MD HEMATOLOGY ORDERABLES Final Result Performing Organization Address [place]/[facility] [place]/ZIP Co de Phone Number INTERFACE SYSTEM Refer to clinic/hospital department [facility] CLIA# [id number] [address] [place] [address] * URINE CULTURE (05/02/2008 10:05 PM CDT) FINAL REPORT No growth INTERFA CE SYSTEM 05/02/2008 10:0 5 PM CDT 05/02/2008 10:05 PM CDT Riky Mejía MD MICROBIOLOGY - [facility] Final Result Performing Organization Address [facility] [place]/[facility] de Phone Number INTERFACE SYSTEM Refer to clinic/hospital department * (ABNORMAL) URINALYSIS MICROSCOPY ONLY (05/02/2008 9:19 PM CDT) BACTERIA UA Few(A) None Seen [facility] WBC URINE 3-5(A) 0 - 2 [facility] RBC UA 0-2 0 - 2 [facility] HYALINE CAST 0-2 0 - 2 [facility] Urine specimen (specimen) 05/02/2008 9:19 PM CDT 05/02/2008 9:19 PM CDT Narrative INTERFACE SYSTEM - 05/02/2008 9:43 PM CDT Microscopic ordered by policy Riky Mejía MD URINE ORDERABLES Final Resu lt Performing Organization Address [facility] [place]/[facility] de Phone Number INTERFACE SYSTEM Refer to clinic/hospital department [facility] CLIA# [id number] [address] [place] [address] * (ABNORMAL) ICTOTEST (05/02/2008 9:19 PM CDT) ICTO Positive(A) Negative [facility] Urine specimen (specimen) 05/02/2008 9:19 PM CDT 05/02/2008 9:19 PM CDT Narrative INTERFACE SYSTEM - 05/02/2008 9:43 PM CDT Bili verified by ictotest us Riky Mejía MD URINE ORDERABLES Final Resu lt Performing Organization Address [facility] [place]/[facility] Phone Number INTERFACE SYSTEM Refer to clinic/hospital department [facility] CLIA# [id number] [address] [place] [address] * (ABNORMAL) URINALYSIS (05/02/2008 9:19 PM CDT) CLARITY UA Clear Clear [facility] MICRO EXAM Yes(A) No [facility] GLUCOSE UA NEGATIVE NEGATIVE [facility] PH UA 5.5 5.0 - 9.0 [facility] BLOOD UA NEGATIVE NEGATIVE [facility] LEUKOCYTE ESTERASE UA NEGATIVE NEGATIVE [facility] KETONES UA Trace(A) NEGATIVE [facility] COLOR UA Yellow Straw [facility] PROTEIN UA 100 mg/dl(A) NEGATIVE [facility] SPECIFIC GRAVITY UA >=1.030(A) <=1.005 [facility] NITRITE UA POSITIVE(A) NEGATIVE [facility] UROBILINOGEN UA 0.2 0.2 [facility] Urine specimen (specimen) 05/02/2008 9:19 PM CDT 05/02/2008 9:19 PM CDT Riky Mejía MD URINE ORDERABLES Final Resu lt Performing Organization Address [facility] Phone Number INTERFACE SYSTEM Refer to clinic/hospital department [facility] CLIA# [id number] [address] [place] [address] * (ABNORMAL) BASIC METABOLIC PANEL (05/02/2008 6:50 PM CDT) BUN 22(H) 7 - 17 mg/dL [facility] CO2 23 22 - 32 mmol/l [facility] POTASSIUM 5.3(H) 3.5 - 5.0 mEq/L [facility] Comment: Specimen slightly hemolyzed OSMOLALITY, CALCULATED 278 275 - 295 mOsm/Kg [facility] CREATININE 0.7 0.7 - 1.2 mg/dL [facility] CALCIUM 9.2 8.4 - 10.5 mg/dL [facility] GLUCOSE 124(H) 70 - 110 mg/dL [facility] CHLORIDE 101 95 - 110 mEq/L [facility] ANION GAP 12 9 - 20 mEq/L [facility] SODIUM 131(L) 136 - 145 mEq/L [facility] Blood specimen (specimen) 05/02/2008 6:50 PM CDT 05/02/2008 7:01 PM CDT us Riky Mejía MD CHEMISTRY ORDERABLES Final Result Performing Organization Address [facility] [place]/[facility] de Phone Number INTERFACE SYSTEM Refer to clinic/hospital department [facility] CLIA# [id number] [address] [place] [address] * (ABNORMAL) BASIC METABOLIC PANEL (05/02/2008 8:38 AM CDT) OSMOLALITY, CALCULATED 280 275 - 295 mOsm/Kg [facility] CREATININE 0.8 0.7 - 1.2 mg/dL [facility] CALCIUM 9.5 8.4 - 10.5 mg/dL [facility] GLUCOSE 123(H) 70 - 110 mg/dL [facility] CHLORIDE 100 95 - 110 mEq/L [facility] ANION GAP 13 9 - 20 mEq/L [facility] SODIUM 131(L) 136 - 145 mEq/L [facility] BUN 26(H) 7 - 17 mg/dL [facility] CO2 24 22 - 32 mmol/l [facility] POTASSIUM 5.5(H) 3.5 - 5.0 mEq/L [facility] Blood specimen (specimen) 05/02/2008 8:38 AM CDT 05/02/2008 8:43 AM CDT Riky Mejía MD CHEMISTRY ORDERABLES Final Result INTERFACE SYSTEM Refer to clinic/hospital department [facility] CLIA# [id number] [address] [place] [address] * (ABNORMAL) CBC WITH DIFFERENTIAL (05/02/2008 6:55 AM CDT) LYMPHOCYTE ABSOLUTE 1.4 1.2 - 4.0 K/ul [facility] MCV 95.8 84.0 - 103.0 Fl [facility] MPV 11.2 8.9 - 12.8 Fl [facility] BASOPHILS ABSOLUTE 0.1 0.0 - 0.2 K/ul [facility] BASOPHILS 0.4 0.0 - 1.0 % [facility] HEMOGLOBIN 10.8(L) 12.0 - 16.0 g/dL [facility] RDW 18.3(H) 11.0 - 14.5 % [facility] MONOCYTE ABSOLUTE 1.5(H) 0.1 - 0.6 K/ul [facility] MONOCYTES 11.3(H) 2.0 - 10.0 % [facility] WBC 13.0(H) 4.5 - 11.0 K/ul [facility] MCH 30.3 27.0 - 34.0 pg [facility] NEUTROPHIL ABSOLUTE 10.0(H) 2.0 - 8.0 K/ul [facility] NEUTROPHILS 76.9(H) 42.2 - 75.2 % [facility] HEMATOCRIT 34.2(L) 36.0 - 46.0 % [facility] EOSINOPHILS 0.8 0.0 - 7.0 % [facility] PLATELETS 164 140 - 440 K/ul [facility] PERIPHERAL BLOOD SMEAR REVIEW Automated Diff [facility] EOSINOPHIL ABSOLUTE 0.1 0.0 - 0.7 K/ul [facility] RBC 3.57(L) 4.20 - 5.40 Mil/ul [facility] LYMPHOCYTES 10.6(L) 24.0 - 44.0 % [facility] MCHC 31.6 30.0 - 35.0 g/dL [facility] Blood specimen (specimen) 05/02/2008 6:55 AM CDT 05/02/2008 7:02 AM CDT us Riky Mejía MD HEMATOLOGY ORDERABLES Final Result Performing Organization Address City/State/[facility] Co de Phone Number INTERFACE SYSTEM Refer to clinic/hospital department [facility] CLIA# [id number] [address] [place] [id number] documented in this encounter Visit Diagnoses Diagnosis [...] documented as of this encounter Care Teams Slitting Machine Operator Helper Relationship Specialty Start Date End Date Jose Bowers MD [address] [place] [id number] PCP - General 12/31/05 documented as of this encounter
--- OUTSIDE RECORDS SUMMARY | 2025-02-22 13:54 | XMS_ITS | Clinical Summary ---
Author Organization [facility] Address [address] [facility] Attn: [place] [address] Care Team Providers Care Mechanical Developer Prover Name Role Phone Jose Bowers MD Primary [...] on file Legal Sex Female 3:00 AM INTERNAL RECRUITER Gender Identity Not on file Sexual Orientation [...] MRSA Comment:Kapil 10/26/15 10/27/2015 10/27/2015 Insurance MEDICAID [place] Care Teams Mechanical Developer Prover Relationship Specialty Start Date End Date Jose Bowers MD [address] [place] [id number] PCP - General 12/31/05
--- OUTSIDE RECORDS SUMMARY | 2025-02-22 13:54 | XMS_ITS | Patient Health Record ---
Author Organization happin! y, [facility] Address [address] [place] [address] Care Team Providers Care Timber Management Assistant Name Role Phone Aris Tavarez Primary Care Provider Unavailab le Allergies Allergen (clinical drug ingredient) Drug/Non Drug Allergy documented on EMR Reaction Allergy Type Onset Date Status azithromycin Azithromycin Unknown Drug Allergy A ctive tramadol Ultram Unknown Drug Allergy Active azithromycin Zithromax Unknown Drug Allergy Acti ve Adhesive Unknown Allergy Active Penicillin Unknown Drug Allergy Active vancomycin Vancomycin Unknown Drug Allergy Activ e Reason For Referral No Information Medications Medication SIG (Take, Route, Frequency, Duration) Notes Start Date End Date Status Baclofen 20 MG 1 tablet Administer without regards to meals as needed Orally Twice a day Active Potassium Chloride ER 10 MEQ 1 tablet with food Orally Twice a day Active Methenamine Hippurate 1 GM 1 tablet Orally Twice a day Active Gabapentin 600 MG 1 tablet Orally Once a day Active Venlafaxine HCl ER 150 MG 1 tablet with food Orally Once a day Active Furosemide 20 MG 1 tablet Orally Once a day Active Cefdinir 300 MG as directed Orally BID [facility] 01/22/2023 Active Warfarin Sodium 5 MG 1 tablet Orally Onc e a day Active Omeprazole 40 MG 1 capsule 30 minutes before morning meal Orally Once a day Active Vitamin C 1000 MG 1 tablet Orally Once a day Active Cipro 500 MG 1 tablet Orally ever y 12 hrs Not-Taking Problems Problem Type SNOMED Code ICD Code Onset Dates Problem Status W/U Status Risk Notes Problem Neurogenic bladder (516380658) Neurogenic bladder (N31.9) Active confirmed Problem Suprapubic urinary catheter in situ (finding) (233343133) 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
--- OUTSIDE RECORDS SUMMARY | 2025-02-22 13:54 | XMS_ITS | Encounter Summary ---
Author Organization [facility] Address [address] [place] [address] Care Team Providers Care Advertising Layout Worker Name Role Phone Jose Bowers MD Primary Care Provider Unavailab le Encounter Details Date Type Department Care Team (Late st Contact Info) Description 10/01/2005 Outpatient Historical [facility] [place] [address] [place] [phone] Jose Bowers MD [address] [place] [address] Paraplegia (CMS/HCC) (Primary Dx); Neurogenic Bladder, NOS Social History Tobacco Use Types Packs/Day Years Used Date Smoking Tobacco: Never Assessed Comments Unknown Sex and Gender Information Value Date Recorded Sex Assigned at Not on file Legal Sex Female 6:28 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 Gender Identity Not on file Sexual Orientation Not on file documented as of this encounter Plan of Treatment Not on file documented as of this encounter Visit Diagnoses Diagnosis Paraplegia (CMS/HCC)- Primary Paraplegia Neurogenic bladder, NOS documented in this encounter Additional Health Concerns Infection Onset Date Last Indicated Resolved Time MRSA Comment:Kapil 10/26/15 10/27/2015 10/27/2015 documented as of this encounter Care Teams Advertising Layout Worker Relationship Specialty Start Date End Date Jose Bowers MD [address] [place] [address] PCP - General 12/31/05 documented as of this encounter
--- OUTSIDE RECORDS SUMMARY | 2025-02-22 13:54 | XMS_ITS | Encounter Summary ---
Author Organization [facility] Address [address] [place] [address] Care Team Providers Care Director Music Name Role Phone Jose Bowers MD Primary Care Provider Unavailab le Encounter Details Date Type Department Care Team (Latest Contact Info) Description 02/05/2005 Outpatient Historical [facility] [address] [place] [address] [place] [phone] Morenita Muñiz MD [address] [place] [address] ADMINISTRTVE ENCOUNT NOS (Primary Dx) Social History Tobacco Use Types Packs/Day Years Used Date Smoking Tobacco: Never Assessed Comments Unknown Sex and Gender Information Value Date Recorded Sex Assigned at Not on file Legal Sex Female 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
--- OUTSIDE RECORDS SUMMARY | 2025-02-22 13:54 | XMS_ITS | Patient Health Record ---
Author Organization 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 Plan Of Treatment Future Test Test Name Order Date US Renal w/bladder-45344 11/06/2023 Abdomen [id number] 11/06/2023 Insurance Providers Payer Name Payer Address Payer Phone Subscriber Number Group Number Insured Name Patient Relationship to Insured Coverage Start Date Coverage End Date [facility] Medicare Advantage PPO [address] [address] [place] [address] [id number] Jami Gandhi Self - patient is the insured [place] Medicaid [address] [place] [address] [id number] [phone] [id number] Jami Gandhi Self - patient is the insured Medications Administered Medication Instructions Date of Administration Dosage Notes cefTRIAXone Sodium 01/23/2023 2 g [facility] [id number] Medical (General) History Medical History [...]
--- OUTSIDE RECORDS SUMMARY | 2025-02-22 13:54 | XMS_ITS | Encounter Summary ---
Author Organization [facility] Address [address] [place] [address] Care Team Providers Care Order Picker/Assembler Name Role Phone Jose Bowers MD Primary Care Provider Levon lowry Encounter Details Date Type Department Care Team (Latest Contact Info) Description 04/28/2008 Outpatient Historical [facility] [address] [place] [address] AMBULANCE, [facility] Paraplegia ([facility]); Pressure Ulcer, Upper Back; Pressure Ulcer, Unspecified Stage; Wheelchair Dependence; Bed Confinement Status; Encounter for Long-Term (Current) Use of Other Medications; Encounter for Long-Term (Current) Use of Insulin ([facility]); Personal History of Allergy to Penicillin; Personal History of Allergy to Narcotic Agent Social History Tobacco Use Types Packs/Day Years Used Date Smoking Tobacco: Never Assessed Comments Unknown Sex and Gender Information Value Date Recorded Sex Assigned at Not on file Legal Sex Female 6:28 AM DIRECTOR OF CULTURE Gender Identity Not on file Sexual Orientation Not on file documented as of this encounter Plan of Treatment Not on file documented as of this encounter Visit Diagnoses Diagnosis Paraplegia ([facility]) Paraplegia Pressure ulcer, upper back(707.02) Pressure ulcer, upper back Pressure ulcer, unspecified stage(707.20) Pressure ulcer, unspecified stage Wheelchair dependence Bed confinement status Encounter for long-term (current) use of other medications Encounter for long-term (current) use of insulin ([facility]) Encounter for long-term (current) use of insulin Personal history of allergy to penicillin Personal history of allergy to narcotic agent documented in this encounter Additional Health Concerns Infection Onset Date Last Indicated Resolved Time MRSA Comment:Nares 4/20/16 10/27/2015 10/27/2015 documented as of this encounter Care Teams Order Picker/Assembler Relationship Specialty Start Date End Date Jose Bowers MD [address] [place] [address] PCP - General 12/31/05 documented as of this encounter
--- OUTSIDE RECORDS SUMMARY | 2025-02-22 13:55 | XMS_ITS | Encounter Summary ---
Author Organization [facility] Address [address] [place] [address] Care Team Providers Care Machinist Helper Name Role Phone Jose Bowers MD Primary Care Provider Unavailab le Encounter Details Date Type Department Care Team (Late st Contact Info) Description 10/02/2006 Outpatient Historical [facility]3] Physical Med and Rehab- [place] [address] [place] [phone] Jose Bowers MD [address] [place] [address] Paraplegia (CMS/HCC) (Primary Dx) Social History Tobacco Use Types Packs/Day Years Used Date Smoking Tobacco: Never Assessed Comments Unknown Sex and Gender Information Value Date Recorded Sex Assigned at Not on file Legal Sex Female 6:28 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
--- OUTSIDE RECORDS SUMMARY | 2025-02-22 13:55 | XMS_ITS | Clinical Summary ---
Author Organization [facility] Address [address] [place] [address] Care Team Providers Care Surgical Supply Assistant Name Role Phone Jose Bowers MD Primary [...] on file Legal Sex Female 6:28 AM BLADDER CLEANER Gender Identity Not on file Sexual [...] AND B MEDICAID [place] [employer] , [address] [address] Advance Directives For more information, please contact: [phone] * Full Code (Latest Code Status on File) Date Activated Date Inactivated Comments 10/26/2015 6:24 AM 10/28/2015 4:22 PM Care Teams Surgical Supply Assistant Relationship Specialty Start Date End Date Jose Bowers MD [address] [place] [address] PCP - General 12/31/05
--- OUTSIDE RECORDS SUMMARY | 2025-02-22 13:55 | XMS_ITS | Encounter Summary ---
Author Organization [facility] Address [address] [place] [address] Care Team Providers Care Recordak Operator Name Role Phone Jose Bowers MD Primary Care Provider Unavail le Encounter Details Date Type Department Care Team (Late st Contact Info) Description 11/26/2005 Inpatient Historical [facility] Jose Bowers MD [address] [place] [address] Other Specified Rehabilitation Procedure (Primary Dx) Social History Tobacco Use Types Packs/Day Years Used Date Smoking Tobacco: Never Assessed Comments Unknown Sex and Gender Information Value Date Recorded Sex Assigned at Not on file 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 [facility] has changed the methodology for TSH, and with this change the reference range has changed from 0.49-4.67 to 0.35-5.5 uIU/ml. 11/27/2005 6:09 AM CDT Jose Bowers MD CHEMISTRY ORDERABLES Final Resul t Performing Organization Address [facility] Phone Number INTERFACE SYSTEM [...] Goal INR 3.0; range 2.5 - 3.5 POST-SD Goal INR 2.5; range 2.0 - 3.0 or Goal 3.0; range 2.5 - 3.5 Atrial Fibrillation Goal INR 2.5; range 2.0 - 3.0 Ischemic Stroke Goal INR 2.5; range 2.0 - 3.0 For additional information see Guidelines for Anticoagulation available from the pharmacy [facility] 11/27/2005 6:09 AM CDT Jose Bowers MD HEMATOLOGY ORDERABLES Final Resu lt Performing Organization Address City/[facility] Co de Phone Number INTERFACE SYSTEM Refer to clinic/hospital department * (ABNORMAL) C-REACTIVE PROTEIN (11/27/2005 6:09 AM CDT) CRP 1.19(H) 0.00 - 1.00 mg/dL INTERFACE SYSTEM 11/27/2005 6:09 AM CDT Jose Bowers MD CHEMISTRY ORDERABLES Final Resul t Performing Organization Address City/[facility] Co de Phone Number INTERFACE SYSTEM [...] INTERFACE SYSTEM Comment: As of 05 the [facility] has changed testing methods. The new reference range is 25-100 The old referance range was 38-126 AST 26 8 - 33 U/L INTERFACE SYSTEM Comment: As of 05 the [facility] has changed testing methods. The new reference range is 8-33 The old referance range was Males 17-59 Females 14-36 ALT 27 4 - 36 IU/L INTERFACE SYSTEM Comment: As of 05 the [facility] has changed testing methods. The new reference range is 4-36 The old referance range was Males 21-72 Females 9-52 BILIRUBIN TOTAL 0.2(L) 0.3 - 1.2 mg/dL INTERFACE SYSTEM Comment: As of 05 the [facility] has changed testing methods. The new reference range is 0.3-1.2 The old referance range was 0.2-1.4 11/27/2005 6:09 AM CDT Jose Bowers MD CHEMISTRY ORDERABLES Final Resul t Performing Organization Address [facility] Phone Number INTERFACE SYSTEM Refer to clinic/hospital department * (ABNORMAL) SEDIMENTATION RATE (11/27/2005 6:09 AM CDT) ESR (SEDIMENTATION RATE) 25(H) 0 - 22 mm/hr INTERFACE SYSTEM 11/27/2005 6:09 AM CDT Jose Bowers MD HEMATOLOGY ORDERABLES Final Resu lt Performing Organization Address [facility] Phone Number INTERFACE SYSTEM [...] ORDERABLES Final Resu lt Performing Organization Address [facility] de Phone Number INTERFACE SYSTEM Refer [...] URINE ORDERABLES Final Result Performing Organization Address [facility] de Phone Number INTERFACE SYSTEM Refer [...] URINE ORDERABLES Final Result Performing Organization Address City/State/[facility] Co de Phone Number INTERFACE SYSTEM [...] off-axis. IMPRESSION: Limited study. Nonspecific findings present. [facility] ER D: [id number] Dictated By: Marcus Eng M.D. [...] documented as of this encounter Care Teams Recordak Operator Relationship Specialty Start Date End Date Jose Bowers MD [address] [place] [address] PCP - General 12/31/05 documented as of this encounter
--- OUTSIDE RECORDS SUMMARY | 2025-02-22 13:55 | XMS_ITS | Encounter Summary ---
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 The new reference ranges are Males 38-174 Females 26-140 The old referance ranges were Males 0-155 Females 0-133 12/31/2005 12:4 8 PM CDT Jose Bowers MD CHEMISTRY ORDERABLES Final Resul t Performing Organization Address [facility] Phone Number INTERFACE SYSTEM Refer to clinic/hospital department * C-REACTIVE PROTEIN (12/31/2005 12:48 PM CDT) CRP 0.85 0.00 - 1.00 mg/dL INTERFACE SYSTEM 12/31/2005 12:4 8 PM CDT Jose Bowers MD CHEMISTRY ORDERABLES Final Resul t Performing Organization Address [facility] Phone Number INTERFACE SYSTEM Refer to clinic/hospital department * SEDIMENTATION RATE (12/31/2005 12:48 PM CDT) ESR (SEDIMENTATION RATE) 18 0 - 22 mm/hr INTERFACE SYSTEM 12/31/2005 12:4 8 PM CDT Jose Bowers MD HEMATOLOGY ORDERABLES Final Resu lt Performing Organization Address [facility] Phone Number INTERFACE SYSTEM Refer to [...] in this encounter Visit Diagnoses Diagnosis Paraplegia (CMS/[facility])- Primary Paraplegia documented in this encounter Additional Health Concerns Infection Onset Date Last Indicated Resolved Time MRSA Comment:Kapil 10/26/15 10/27/2015 10/27/2015 documented as of this encounter Care Teams Ship'S Surveyor Relationship Specialty Start Date End Date Jose Bowers MD [address] [place] [address] PCP - General 12/31/05 documented as of this encounter
--- OUTSIDE RECORDS SUMMARY | 2025-02-22 13:55 | XMS_ITS | Encounter Summary ---
Author Organization [facility] Address [address] [place] [address] Care Team Providers Care Mailing Jogger Name Role Phone Jose Bowers MD Primary Care Provider Unavailab le Encounter Details Date Type Department Care Team (Late st Contact Info) Description 08/30/2006 Outpatient Historical [facility] [place] [id number] [place] [phone] Jose Bowers MD [address] [place] [address] Pain in Joint, Pelvic Region and Thigh (Primary Dx); Pain in Limb; Paraplegia (CMS/HCC) Social History Tobacco Use Types Packs/Day Years Used Date Smoking Tobacco: Never Assessed Comments Unknown Sex and Gender Information Value Date Recorded Sex Assigned at Not on file 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 Sex Female 6:28 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 Gender Identity Not on file Sexual Orientation Not on file documented as of this encounter Plan of Treatment Not on file documented as of this encounter Procedures Procedure Name Priority Date/Time Associated Diagnosis Comments XR PELVIS 3+ VW Routine 08/30/2006 12:33 PM DRILLING 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 documented in this encounter Results * XR PELVIS 3+ VW (08/30/2006 12:33 PM DRILLING 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) Anatomical Region Laterality Modality Pelvis Other 08/30/2006 12:3 3 PM DRILLING 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 Narrative 08/30/2006 12:33 PM DRILLING 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 PELVIS AND RIGHT HIP: TECHNIQUE: Two views [...] documented as of this encounter Care Teams Mailing Jogger Relationship Specialty Start Date End Date Jose Bowers MD [address] [place] [address] PCP - General 12/31/05 documented as of this encounter
--- OUTSIDE RECORDS SUMMARY | 2025-02-22 13:55 | XMS_ITS | Encounter Summary ---
Author Organization [facility] Address [address] [place] [address] Care Team Providers Care Adjusto Writer Operator Name Role Phone Jose Bowers MD Primary Care Provider Unavail le Encounter Details Date Type Department Care Team (Late st Contact Info) Description 12/31/2006 Outpatient Historical [facility] OUT[facility] Jose Bowers MD [address] [place] [address] Pain in Soft Tissues of Limb (Primary Dx) Social History Tobacco Use Types Packs/Day Years Used Date Smoking Tobacco: Never Assessed Comments Unknown Sex and Gender Information Value Date Recorded Sex Assigned at Not on file 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
--- OUTSIDE RECORDS SUMMARY | 2025-02-22 13:55 | XMS_ITS | Encounter Summary ---
Author Organization [facility] Address [address] [place] [address] Care Team Providers Care Sales Management Intern Name Role Phone Jose Bowers MD Primary Care Provider Unavailab le Encounter Details Date Type Department Care Team (Late st Contact Info) Description 01/30/2007 Outpatient Historical [facility] Physical Med and Rehab- [place] [address] [place] [phone] Jose Bowers MD [address] [place] [address] Paraplegia (CMS/HCC) (Primary Dx) Social History Tobacco Use Types Packs/Day Years Used Date Smoking Tobacco: Never Assessed Comments Unknown Sex and Gender Information Value Date Recorded Sex Assigned at Not on file 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
--- OUTSIDE RECORDS SUMMARY | 2025-02-22 13:55 | XMS_ITS | Encounter Summary ---
Author Organization [facility] Address [address] [place] [address] Care Team Providers Care Finance Lead Name Role Phone Jose Bowers MD Primary Care Provider Unavailab le Encounter Details Date Type Department Care Team (Latest Contact Info) Description 07/24/2006 Outpatient Historical [facility] [address] 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
--- OUTSIDE RECORDS SUMMARY | 2025-02-22 13:55 | XMS_ITS | Encounter Summary ---
Author Organization [facility] Address [address] [place] [address] Care Team Providers Care Clinical Laboratory Aides Teacher Name Role Phone Jose Bowers MD Primary Care Provider Unavailab le Encounter Details Date Type Department Care Team (Late st Contact Info) Description 02/14/2006 Outpatient Historical [facility] Physical Med and Rehab- [place] [address] [place] [phone] Jose Bowers MD [address] [place] [address] Paraplegia (CMS/HCC) (Primary Dx) Social History Tobacco Use Types Packs/Day Years Used Date Smoking Tobacco: Never Assessed Comments Unknown Sex and Gender Information Value Date Recorded Sex Assigned at Not on file 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
--- OUTSIDE RECORDS SUMMARY | 2025-02-22 13:55 | XMS_ITS | Encounter Summary ---
Author Organization [facility] Address [address] [place] [address] Care Team Providers Care Technical Support Specialist Name Role Phone Jose Bowers MD Primary Care Provider Unavailab le Encounter Details Date Type Department Care Team (Late st Contact Info) Description 04/15/2006 Outpatient Historical [facility] Physical Med and Rehab- [place] [address] [place] [phone] Jose Bowers MD [address] [place] [address] Paraplegia (CMS/HCC) (Primary Dx) Social History Tobacco Use Types Packs/Day Years Used Date Smoking Tobacco: Never Assessed Comments Unknown Sex and Gender Information Value Date Recorded Sex Assigned at Not on file 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 Sex Female 6:28 AM DIRECTOR 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
--- OUTSIDE RECORDS SUMMARY | 2025-02-22 13:55 | XMS_ITS | Encounter Summary ---
Author Organization [facility] Address [address] [place] [address] Care Team Providers Care Rehabilitation Services Aide Name Role Phone Jose Bowers MD Primary Care Provider Unavailab le Encounter Details Date Type Department Care Team (Late st Contact Info) Description 07/24/2006 Outpatient Historical [facility] Physical Med and Rehab- [place] [address] [place] [phone] Jose Bowers MD [address] [place] [address] Paraplegia (CMS/HCC) (Primary Dx); Difficulty in Walking; Pain in Limb Social History Tobacco Use Types Packs/Day Years Used Date Smoking Tobacco: Never Assessed Comments Unknown Sex and Gender Information Value Date Recorded Sex Assigned at Not on file 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
--- OUTSIDE RECORDS SUMMARY | 2025-02-22 13:55 | XMS_ITS | Encounter Summary ---
Author Organization [facility] Address [address] [place] [address] Care Team Providers Care Starch And Prosize Mixer Name Role Phone Jose Bowers MD Primary Care Provider Unavailab le Encounter Details Date Type Department Care Team (Latest Contact Info) Description 08/30/2006 Outpatient Historical [facility] Imaging Services [address] [place] [phone] Jose Bowers MD [address] [place] [phone] Pain in Joint, Pelvic Region and Thigh (Primary Dx) Social History Tobacco Use Types Packs/Day Years Used Date Smoking Tobacco: Never Assessed Comments Unknown Sex and Gender Information Value Date Recorded Sex Assigned at Not on file 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 Sex Female 6:28 AM VOICE NETWORK ENGINEER Gender Identity Not on file Sexual Orientation Not on file documented as of this encounter Plan of Treatment Not on file documented as of this encounter Procedures Procedure Name Priority Date/Time Associated Diagnosis Comments CBC WITH DIFFERENTIAL Routine 08/30/2006 12:42 PM VOICE NETWORK ENGINEER SEDIMENTATION RATE Routine 08/30/2006 12 :42 PM VOICE NETWORK ENGINEER CK Routine 08/30/2006 12:42 PM VOICE NETWORK ENGINEER documented in this encounter Results * (ABNORMAL) CK (08/30/2006 12:42 PM VOICE NETWORK ENGINEER) CK 201(H) 26 - 140 U/L INTERFACE SYSTEM Comment: As of 05 the [facility] has changed testing methods. The new reference ranges are Males 38-174 Females 26-140 The old referance ranges were Males 0-155 Females 0-133 08/30/2006 12:4 2 PM VOICE NETWORK ENGINEER Jose Bowers MD CHEMISTRY ORDERABLES Edited Performing Organization Address City/[facility] Co de Phone Number INTERFACE SYSTEM Refer to clinic/hospital department * (ABNORMAL) CBC WITH DIFFERENTIAL (08/30/2006 12:42 PM VOICE NETWORK ENGINEER) WBC 5.1 4.5 - 11.0 K/ul INTERFACE [...] K/ul INTERFACE SYSTEM 08/30/2006 12:4 2 PM VOICE NETWORK ENGINEER Jose Bowers MD HEMATOLOGY ORDERABLES Edited Performing Organization Address City/[facility] Co de Phone Number INTERFACE SYSTEM Refer to clinic/hospital department * (ABNORMAL) SEDIMENTATION RATE (08/30/2006 12:42 PM VOICE NETWORK ENGINEER) ESR (SEDIMENTATION RATE) 27(H) 0 - 22 mm/hr INTERFACE SYSTEM 08/30/2006 12:4 2 PM VOICE NETWORK ENGINEER Jose Bowers MD HEMATOLOGY ORDERABLES Edited INTERFACE SYSTEM Refer to clinic/hospital department documented in this encounter Visit Diagnoses Diagnosis Pain in joint, pelvic region and thigh- Primary documented in this encounter Additional Health Concerns Infection Onset Date Last Indicated Resolved Time MRSA Comment:Kapil 10/26/15 10/27/2015 10/27/2015 documented as of this encounter Care Teams Starch And Prosize Mixer Relationship Specialty Start Date End Date Jose Bowers MD [address] [place] [id number] PCP - General 12/31/05 documented as of this encounter
--- OUTSIDE RECORDS SUMMARY | 2025-02-22 13:55 | XMS_ITS | Encounter Summary ---
Author Organization [facility] Address [address] [place] [address] Care Team Providers Care Control Systems Technician Name Role Phone Jose Bowers MD Primary Care Provider Unavailab le Encounter Details Date Type Department Care Team (Late st Contact Info) Description 07/10/2007 Outpatient [facility] Physical Med and Rehab- [place] [address] [place] [phone] Ramana Juarez MD [address] [place] [address] Social History Tobacco Use Types Packs/Day Years Used Date Smoking Tobacco: Never Assessed Comments Unknown Sex and Gender Information Value Date Recorded Sex Assigned at Not on file 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
--- OUTSIDE RECORDS SUMMARY | 2025-02-22 13:55 | XMS_ITS | Encounter Summary ---
Author Organization [facility] Address [address] [place] [address] Care Team Providers Care Combination Operator Name Role Phone Jose Bowers MD Primary Care Provider Unavailab le Encounter Details Date Type Department Care Team (Late st Contact Info) Description 12/31/2006 Outpatient Historical [facility] Physical Med and Rehab- [place] [address] [place] [phone] Jose Bowers MD [address] [place] [address] Paraplegia (CMS/HCC) (Primary Dx) Social History Tobacco Use Types Packs/Day Years Used Date Smoking Tobacco: Never Assessed Comments Unknown Sex and Gender Information Value Date Recorded Sex Assigned at Not on file 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
[2025-02-22 14:08] LABS: Hematocrit 42.7 % (36-47); Hemoglobin 12.70 g/dL (11.27-16.99); Mean Corpuscular HGB Conc 29.7 g/dL (30-55); Mean Corpuscular Hemoglobin 30.4 pg (27-33); Mean Corpuscular Volume 102.2 fl (85-98); Nucleated Red Blood Cells % 0 %; Platelet Count 409 10^3/cmm (157-399); Red Blood Count 4.18 10^6/uL (3.85-5.65); White Blood Count 6.73 10^3/uL (3.29-11.43)
[2025-02-22 14:25] LABS: Alanine Aminotransferase 27 U/L (0-33); Albumin Level 3.3 g/dL (3.5-5.2); Alkaline Phosphatase 149 U/L (35-105); Blood Urea Nitrogen 50 mg/dL (6-20); Calcium 9.2 mg/dL (8.5-10.5); Carbon Dioxide 15 mmol/L (22-29); Chloride 105 mmol/L (98-107); Creatinine Clr Calc Pharmacy 127.2322; Globulin 4.3 g/dL (1.3-4.6); Glucose 102 mg/dL (65-115); Lipase 18 U/L (13-60); Osmolality Calculated 290 mOsm/kg (285-295); Sodium 133 mmol/L (136-145); Total Protein 7.6 g/dL (6.6-8.7)
[2025-02-22 14:36] LABS: Anion Gap 17.8 (5-19); Aspartate Amino Transferase 32 U/L (0-32); Potassium 4.8 mmol/L (3.5-5.1)
--- NOTE | 2025-02-22 14:43 | W.ED.ABDPA2 ---
Documented by User: Gerson Waldron DO 02/24/25 06:11 HPI - Abdominal Pain General: Chief Complaint: Abdominal Pain Stated Complaint: abd pain, n/v Time Seen by Provider: 02/22/25 14:42 History of Present Illness: 54-year-old female presents emergency room complaining of severe abdominal pain left side near her ostomy. She has had some blood in the ostomy as well. She has been very nauseous. She does take Bactrim daily for suppression for UTI. Denies any fever sweats or chills. Denies chest pain or shortness of breath. Associated Symptoms: Reports hematochezia and nausea; Denies chills, dysuria, fever(s) and vomiting Related Data Home Medications ?Medication ?Instructions ?Recorded ?Confirmed gabapentin 600 mg tablet 600 mg PO BEDTIME 04/12/20 02/23/25 venlafaxine 150 mg 150 mg PO BEDTIME 04/12/20 02/23/25 capsule,extended release 24 hr baclofen 20 mg tablet 20 mg PO BEDTIME 02/26/23 02/23/25 trazodone 50 mg tablet 25 mg PO BEDTIME 09/24/23 02/23/25 diphenoxylate-atropine 2.5 2 tab PO QID 02/04/25 02/23/25 mg-0.025 mg tablet loperamide 2 mg capsule 4 mg PO QID PRN Diarrhea 02/04/25 02/23/25 omeprazole 40 mg capsule,delayed 40 mg PO DAILY 02/04/25 02/23/25 release sulfamethoxazole 400 1 tab PO DAILY 02/04/25 02/23/25 mg-trimethoprim 80 mg tablet cefdinir 300 mg capsule 300 mg PO DAILY 02/23/25 02/23/25 ondansetron 8 mg disintegrating 8 mg PO TID PRN Nausea And Vomiting 02/23/25 02/23/25 tablet rivaroxaban 20 mg tablet (Xarelto) 20 mg PO QPM 02/23/25 02/23/25 Previous Rx's ?Medication ?Instructions ?Recorded prothrombin time/INR test metr #30 ea 08/24/24 Allergies Allergy/AdvReac Type Severity Reaction Status Date / Time levofloxacin (From Levaquin) Allergy Unknown Unknown Verified 02/22/25 13:52 azithromycin Allergy Unknown Verified 02/22/25 13:52 Penicillins Allergy Unknown Verified 02/22/25 13:52 tramadol (From Ultram) Allergy Unknown Verified 02/22/25 13:52 vancomycin Allergy Unknown Verified 02/22/25 13:52 amoxicillin AdvReac Unknown ADR-Seizure Verified 02/22/25 13:52 Review of Systems Const: Denies: fever(s) or chills Card: Denies: chest pain Resp: Denies: dyspnea GI: Reports: abdominal pain, nausea and hematochezia; Denies: vomiting : Denies: dysuria, urinary frequency or urinary urgency Musc: Denies: neck pain or back pain Skin/Breast: Denies: rash PFSH ED PFSH: Medical History Shock Groin hematoma BMI 50.0-59.9, adult Chronic anticoagulation History of angiography 2015 abdominal angiography and lower extremity angiography - normal abdominal aorta, pelvic vessels normal, all lower extremity vessels unremarkable, 3 vessel runoff below both knees History of cardiovascular stress test 07/2024 abnormalities on myocardial perfusion scanning History of sleep study 05/2017 - cpap auto-titrating 15-19 Wound of sacral region goes to wound care clinic Abscess of sacrum Parastomal hernia Ventral incisional hernia GERD (gastroesophageal reflux disease) Depression Fracture of fifth toe, right, closed History of sleep apnea sleep study in 2016 recommended auto-titrating cpap 15-[address] Complications of surgery for ovarian cyst around 2004 resulting in bowel injury Chronic venous insufficiency of lower extremity PVD (peripheral vascular disease) History of DVT (deep vein thrombosis) (2004) and pulmonary embolism 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 Chronic osteomyelitis Neurogenic bladder Chronic cystitis Surgical History History of carpal tunnel release History of abdominal surgery (2007) excision of pelvic cysts complicated by bowel perforation, had multiple procedures including colostomy History of inferior vena caval filter placement (2004) still in place in 08/2024 History of incision and drainage (04/2019) sacral wound History of back surgery (2004) for spinal abscess x 2 History of hysterectomy (2003) S/P cholecystectomy S/P section Suprapubic catheter (~2004) following urology in [place] Family History Family/Other Diabetes Cancer CAD (coronary artery disease) Mother , at age 74 Sepsis Cancer melanoma Diabetes Father Heart disease Other Dementia Diabetes mellitus type 1 Hypertension Stroke Social History Smoking and tobacco/nicotine status: never used tobacco/nicotine Alcohol intake: never Substance/Drug Use: never Additional social history: daughter performs dressing changes twice per day, she and other family provide assistance as needed, wheelchair dependent, able to use transfer board Caregiver/support person: Yes Lives independently: Yes Marital status: Current occupational status: disabled Physical Exam Const: GENERAL APPEARANCE: cooperative ORIENTATION/CONSCIOUSNESS: Yes awake, Yes oriented to person, Yes oriented to place and Yes oriented to time HENMT: COMMON NORMALS: normocephalic, atraumatic and hearing grossly normal bilaterally HEAD & SCALP: normocephalic and atraumatic Resp: COMMON NORMALS: normal respiratory effort, No retractions, No use of accessory muscles and clear to auscultation bilaterally AUSCULTATION: clear to auscultation bilaterally Cardio: COMMON NORMALS: regular rate, regular rhythm and No murmurs present (Cardio) RATE: regular rate RHYTHM: regular rhythm GI: COMMON NORMALS: No hepatosplenomegaly present AUSCULTATION: Yes normoactive bowel sounds PALPATION: Yes Tenderness to palpation present (GI) (Left lower quadrant., Blood in ostomy bag), No Guarding due to palpation present (GI) and Yes No hepatosplenomegaly present Extremity: COMMON NORMALS: normal to inspection, capillary refill normal, no clubbing, cyanosis or edema, no calf tenderness and no pedal edema Neuro: SENSORIUM/ORIENTATION: Yes oriented to person, Yes oriented to place and Yes oriented to time Skin: COMMON NORMALS: no rashes or lesions noted GENERAL SKIN EXAM: no rashes or lesions noted Course Vital Signs: Vital signs: Vital Signs Temperature 97.9 F 02/22/25 13:48 Pulse Rate 98 02/23/25 09:20 Respiratory Rate 17 02/23/25 06:00 Blood Pressure 113/70 02/23/25 09:20 Pulse Oximetry 100 02/23/25 09:20 Oxygen Delivery Me thod Room Air 02/23/25 03:00 MDM - Abdominal Pain Medical Decision Making Labs and CT pending care signed out to Dr. Mesa at change of shift. See final notes for diagnosis and disposition. Signout from Dr. Waldron at 6 PM. Patient with abdominal pain, and dry heaves for the past 5 days. Awaiting test results. On reassessment I talked to the patient about her initial CT scan. There was some concern for possible small bowel obstruction, however the imaging was not completely within the [id number]. In conjunction with Dr. Flores and the radiologist we ordered a rescan with p.o. contrast. Her CT is unremarkable. She is normal ostomy output and has not been throwing up. On reassessment she is resting company in the gurney with no signs of distress. Per surgery there is no surgical issue at this time. She continues to have some mild tachycardia. Her urine is concerning for urinary tract infection. I discussed the case with the hospitalist and we will continue IV antibiotics and IV fluids. We will admit for further workup and treatment of her urinary tract infection/pyelonephritis. On reassessment the patient's fistula bag appears to be full of bloody material. We rechecked her hemoglobin and it was 11.1 down from 12.7. In discussion with the hospitalist we are concerned for possible GI bleed. Will call and transfer her to [facility] for further workup and treatment of her likely GI bleed. Care assumed at change of shift. Patient is pending transfer to [place] [facility] to ER. Transportation pending this morning. Medical Records I reviewed the patient's medical records. Lab Data I reviewed the patient's lab results. 02/23/25 07:04 02/23/25 07:04 Labs/Radiology: Radiology Impressions Abdomen/Pelvis CT 02/22/25 18:36 IMPRESSION: 1. Redemonstrated large ventral abdominal hernia, with much of the large and small bowels present within the hernia sac. 2. No evidence of bowel obstruction. 3. Status post cholecystectomy. The common bile duct remains mildly dilated up to 0.9 cm. This is a common chronic finding post cholecystectomy. 4. Urinary bladder demonstrates mild diffuse bladder wall thickening, unchanged. 5. Soft tissues lateral to the right hip are excluded from the [id number] on current study. COMMENTS: For patients with an IVC filter, recommend assessment for a management plan for the patient's IVC filter. If there is no established management plan, recommend referral to an interventional clinician on a nonemergent basis for evaluation. Laboratory Results WBC 5.02 10^3/uL (3.29-11.43) 02/23/25 07:04 RBC 3.40 10^6/uL (3.85-5.65) L 02/23/25 07:04 Hgb 10.30 g/dL (11.27-16.99) L 02/23/25 07:04 Hct 33.6 % (36-47) L 02/23/25 07:04 MCV 98.8 fl (85-98) H 02/23/25 07:04 MCH 30.3 pg (27-33) 02/23/25 07:04 MCHC 30.7 g/dL (30-55) 02/23/25 07:04 RDW 15.9 % (12.1-15.1) H 02/23/25 07:04 Plt Count 393 10^3/cmm (157-399) 02/23/25 07:04 MPV 10.7 fL (7.4-10.4) H 02/23/25 07:04 Neut % (Auto) 61.9 % 02/23/25 07:04 Lymph % (Auto) 24.3 % 02/23/25 07:04 [place] % (Auto) 10.2 % 02/23/25 07:04 Eos % (Auto) 2.8 % 02/23/25 07:04 Baso % (Auto) 0.4 % 02/23/25 07:04 Neut # (Auto) 3.11 10^3/uL (1.8-7.7) 02/23/25 07:04 Lymph # (Auto) 1.2 10^3/uL (0.8-4.8) 02/23/25 07:04 [place] # (Auto) 0.5 10^3/uL (0.2-0.9) 02/23/25 07:04 Eos # (Auto) 0.1 10^3/uL (0.0-0.8) 02/23/25 07:04 Baso # (Auto) 0.0 10^3/uL (0.0-0.1) 02/23/25 07:04 Nucleated RBC % (auto) 0 % 02/23/25 07:04 Nucleated RBCs # 0.0 /100WBC 02/23/25 07:04 Sodium 135 mmol/L (136-145) L 02/23/25 07:04 Potassium 4.8 mmol/L (3.5-5.1) 02/23/25 07:04 Chloride 105 mmol/L (98-107) 02/23/25 07:04 Carbon Dioxide 20 mmol/L (22-29) L 02/23/25 07:04 Anion Gap 14.8 (5-19) 02/23/25 07:04 BUN 40 mg/dL (6-20) H 02/23/25 07:04 Creatinine 0.7 mg/dL (0.5-0.9) 02/23/25 07:04 GFR Calculation 86.6 mL/min (90-130) L 02/23/25 07:04 Glucose 107 mg/dL (65-115) 02/23/25 07:04 Calculated Osmolality 290 mOsm/kg (285-295) 02/23/25 07:04 Lactic Acid 1.1 mmol/L (0.5-2.2) 02/22/25 19:40 Calcium 8.8 mg/dL (8.5-10.5) 02/23/25 07:04 Total Bilirubin 0.3 mg/dL (0.15-1.2) 02/22/25 14:01 AST 32 U/L (0-32) 02/22/25 14:01 ALT 27 U/L (0-33) 02/22/25 14:01 Alkaline Phosphatase 149 U/L (35-105) H 02/22/25 14:01 Total Protein 7.6 g/dL (6.6-8.7) 02/22/25 14:01 Albumin 3.3 g/dL (3.5-5.2) L 02/22/25 14:01 Globulin 4.3 g/dL (1.3-4.6) 02/22/25 14:01 Lipase 18 U/L (13-60) 02/22/25 14:01 Urine Color Yellow (Yellow) 02/22/25 15:22 Urine Appearance Turbid (CLEAR) A 02/22/25 15:22 Urine pH >=9.0 (5-7) A 02/22/25 15:22 Ur Specific Rose 1.026 (1.005-1.030) 02/22/25 15:22 Urine Protein 3+ (Negative) A 02/22/25 15:22 Urine Glucose (UA) Negative (Normal) 02/22/25 15:22 Urine Ketones Negative (Negative) 02/22/25 15:22 Urine Blood 2+ (Negative) A 02/22/25 15:22 Urine Nitrate Positive (Negative) A 02/22/25 15:22 Urine Bilirubin Negative (Negative) 02/22/25 15:22 Urine Urobilinogen 1.0 mg/dL (Negative) 02/22/25 15:22 Ur Leukocyte Esterase 3+ (Negative) A 02/22/25 15:22 Urine RBC 10-15 /hpf (0-2) H 02/22/25 15:22 Urine WBC 10-15 /hpf (0-5) H 02/22/25 15:22 Ur Squamous Epith Cells 0-4 /hpf (0-5) H 02/22/25 15:22 Triple Phos Crystals 15-25 /hpf H 02/22/25 15:22 Amorphous Sediment Not Reportable 02/22/25 15:22 Urine Bacteria 4+ /hpf (NONE) H 02/22/25 15:22 Blood Type O Negative 02/23/25 00:37 Rho(D) Type Rh negative 02/23/25 00:37 Antibody Screen Positive 02/23/25 00:37 Antibody Identification Anti-D 02/23/25 00:37 Discharge Plan Discharge Patient Disposition: Xfer Short-Term Hosp Clinical Impression: Urinary tract infection, GI (gastrointestinal bleed) Referrals: Marcus Benson MD [Primary Care Provider, Family Practice] Print Language: Arabic Coding Level of Care Code ED Awning Hanger Helper for Chg Fwd Documented by User: Edison Mesa MD 02/23/25 04:30 HPI - Abdominal Pain General: Chief Complaint: Abdominal Pain Stated Complaint: abd pain, n/v Time Seen by Provider: 02/22/25 14:42 Related Data Home Medications ?Medication ?Instructions ?Recorded ?Confirmed gabapentin 600 mg tablet 600 mg PO BEDTIME 04/12/20 02/23/25 venlafaxine 150 mg 150 mg PO BEDTIME 04/12/20 02/23/25 capsule,extended release 24 hr baclofen 20 mg tablet 20 mg PO BEDTIME 02/26/23 02/23/25 trazodone 50 mg tablet 25 mg PO BEDTIME 09/24/23 02/23/25 diphenoxylate-atropine 2.5 2 tab PO QID 02/04/25 02/23/25 mg-0.025 mg tablet loperamide 2 mg capsule 4 mg PO QID PRN Diarrhea 02/04/25 02/23/25 omeprazole 40 mg capsule,delayed 40 mg PO DAILY 02/04/25 02/23/25 release sulfamethoxazole 400 1 tab PO DAILY 02/04/25 02/23/25 mg-trimethoprim 80 mg tablet cefdinir 300 mg capsule 300 mg PO DAILY 02/23/25 02/23/25 ondansetron 8 mg disintegrating 8 mg PO TID PRN Nausea And Vomiting 02/23/25 02/23/25 tablet rivaroxaban 20 mg tablet (Xarelto) 20 mg PO QPM 02/23/25 02/23/25 Previous Rx's ?Medication ?Instructions ?Recorded prothrombin time/INR test metr #30 ea 08/24/24 Allergies Allergy/AdvReac Type Severity Reaction Status Date / Time levofloxacin (From Levaquin) Allergy Unknown Unknown Verified 02/22/25 13:52 azithromycin Allergy Unknown Verified 02/22/25 13:52 Penicillins Allergy Unknown Verified 02/22/25 13:52 tramadol (From Ultram) Allergy Unknown Verified 02/22/25 13:52 vancomycin Allergy Unknown Verified 02/22/25 13:52 amoxicillin AdvReac Unknown ADR-Seizure Verified 02/22/25 13:52 PFSH ED PFSH: Medical History Shock Groin hematoma BMI 50.0-59.9, adult Chronic anticoagulation History of angiography 2015 abdominal angiography and lower extremity angiography - normal abdominal aorta, pelvic vessels normal, all lower extremity vessels unremarkable, 3 vessel runoff below both knees History of cardiovascular stress test 07/2024 abnormalities on myocardial perfusion scanning History of sleep study 05/2017 - cpap auto-titrating 15-19 Wound of sacral region goes to wound care clinic Abscess of sacrum Parastomal hernia Ventral incisional hernia GERD (gastroesophageal reflux disease) Depression Fracture of fifth toe, right, closed History of sleep apnea sleep study in 2017 recommended auto-titrating cpap 15-[address] Complications of surgery for ovarian cyst around 2004 resulting in bowel injury Chronic venous insufficiency of lower extremity PVD (peripheral vascular disease) History of DVT (deep vein thrombosis) (2004) and pulmonary embolism 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 Chronic osteomyelitis Neurogenic bladder Chronic cystitis Surgical History History of carpal tunnel release History of abdominal surgery (2007) excision of pelvic cysts complicated by bowel perforation, had multiple procedures including colostomy History of inferior vena caval filter placement (2004) still in place in 08/2024 History of incision and drainage (04/2019) sacral wound History of back surgery (2004) for spinal abscess x 2 History of hysterectomy (2003) S/P cholecystectomy S/P section Suprapubic catheter (~2004) following urology in [place] Family History Family/Other Diabetes Cancer CAD (coronary artery disease) Mother , at age 74 Sepsis Cancer melanoma Diabetes Father Heart disease Other Dementia Diabetes mellitus type 1 Hypertension Stroke Social History Smoking and tobacco/nicotine status: never used tobacco/nicotine Alcohol intake: never Substance/Drug Use: never Additional social history: daughter performs dressing changes twice per day, she and other family provide assistance as needed, wheelchair dependent, able to use transfer board Caregiver/support person: Yes Lives independently: Yes Marital status: Current occupational status: disabled Course Vital Signs: Vital signs: Vital Signs Temperature 97.9 F 02/22/25 13:48 Pulse Rate 98 02/23/25 09:20 Respiratory Rate 17 02/23/25 06:00 Blood Pressure 113/70 02/23/25 09:20 Pulse Oximetry 100 02/23/25 09:20 Oxygen Delivery Me thod Room Air 02/23/25 03:00 MDM - Abdominal Pain Medical Decision Making Signout from Dr. Waldron at 6 PM. Patient with abdominal pain, and dry heaves for the past 5 days. Awaiting test results. On reassessment I talked to the patient about her initial CT scan. There was some concern for possible small bowel obstruction, however the imaging was not completely within the [id number]. In conjunction with Dr. Flores and the radiologist we ordered a rescan with p.o. contrast. Her CT is unremarkable. She is normal ostomy output and has not been throwing up. On reassessment she is resting company in the gurney with no signs of distress. Per surgery there is no surgical issue at this time. She continues to have some mild tachycardia. Her urine is concerning for urinary tract infection. I discussed the case with the hospitalist and we will continue IV antibiotics and IV fluids. We will admit for further workup and treatment of her urinary tract infection/pyelonephritis. On reassessment the patient's fistula bag appears to be full of bloody material. We rechecked her hemoglobin and it was 11.1 down from 12.7. In discussion with the hospitalist we are concerned for possible GI bleed. Will call and transfer her to [facility] for further workup and treatment of her likely GI bleed. Lab Data 02/23/25 07:04 02/23/25 07:04 Labs/Radiology: Radiology Impressions Abdomen/Pelvis CT 02/22/25 18:36 IMPRESSION: 1. Redemonstrated large ventral abdominal hernia, with much of the large and small bowels present within the hernia sac. 2. No evidence of bowel obstruction. 3. Status post cholecystectomy. The common bile duct remains mildly dilated up to 0.9 cm. This is a common chronic finding post cholecystectomy. 4. Urinary bladder demonstrates mild diffuse bladder wall thickening, unchanged. 5. Soft tissues lateral to the right hip are excluded from the [id number]-wj-oycz on current study. COMMENTS: For patients with an IVC filter, recommend assessment for a management plan for the patient's IVC filter. If there is no established management plan, recommend referral to an interventional clinician on a nonemergent basis for evaluation. Laboratory Results WBC 5.02 10^3/uL (3.29-11.43) 02/23/25 07:04 RBC 3.40 10^6/uL (3.85-5.65) L 02/23/25 07:04 Hgb 10.30 g/dL (11.27-16.99) L 02/23/25 07:04 Hct 33.6 % (36-47) L 02/23/25 07:04 MCV 98.8 fl (85-98) H 02/23/25 07:04 MCH 30.3 pg (27-33) 02/23/25 07:04 MCHC 30.7 g/dL (30-55) 02/23/25 07:04 RDW 15.9 % (12.1-15.1) H 02/23/25 07:04 Plt Count 393 10^3/cmm (157-399) 02/23/25 07:04 MPV 10.7 fL (7.4-10.4) H 02/23/25 07:04 Neut % (Auto) 61.9 % 02/23/25 07:04 Lymph % (Auto) 24.3 % 02/23/25 07:04 [place] % (Auto) 10.2 % 02/23/25 07:04 Eos % (Auto) 2.8 % 02/23/25 07:04 Baso % (Auto) 0.4 % 02/23/25 07:04 Neut # (Auto) 3.11 10^3/uL (1.8-7.7) 02/23/25 07:04 Lymph # (Auto) 1.2 10^3/uL (0.8-4.8) 02/23/25 07:04 [place] # (Auto) 0.5 10^3/uL (0.2-0.9) 02/23/25 07:04 Eos # (Auto) 0.1 10^3/uL (0.0-0.8) 02/23/25 07:04 Baso # (Auto) 0.0 10^3/uL (0.0-0.1) 02/23/25 07:04 Nucleated RBC % (auto) 0 % 02/23/25 07:04 Nucleated RBCs # 0.0 /100WBC 02/23/25 07:04 Sodium 135 mmol/L (136-145) L 02/23/25 07:04 Potassium 4.8 mmol/L (3.5-5.1) 02/23/25 07:04 Chloride 105 mmol/L (98-107) 02/23/25 07:04 Carbon Dioxide 20 mmol/L (22-29) L 02/23/25 07:04 Anion Gap 14.8 (5-19) 02/23/25 07:04 BUN 40 mg/dL (6-20) H 02/23/25 07:04 Creatinine 0.7 mg/dL (0.5-0.9) 02/23/25 07:04 GFR Calculation 86.6 mL/min (90-130) L 02/23/25 07:04 Glucose 107 mg/dL (65-115) 02/23/25 07:04 Calculated Osmolality 290 mOsm/kg (285-295) 02/23/25 07:04 Lactic Acid 1.1 mmol/L (0.5-2.2) 02/22/25 19:40 Calcium 8.8 mg/dL (8.5-10.5) 02/23/25 07:04 Total Bilirubin 0.3 mg/dL (0.15-1.2) 02/22/25 14:01 AST 32 U/L (0-32) 02/22/25 14:01 ALT 27 U/L (0-33) 02/22/25 14:01 Alkaline Phosphatase 149 U/L (35-105) H 02/22/25 14:01 Total Protein 7.6 g/dL (6.6-8.7) 02/22/25 14:01 Albumin 3.3 g/dL (3.5-5.2) L 02/22/25 14:01 Globulin 4.3 g/dL (1.3-4.6) 02/22/25 14:01 Lipase 18 U/L (13-60) 02/22/25 14:01 Urine Color Yellow (Yellow) 02/22/25 15:22 Urine Appearance Turbid (CLEAR) A 02/22/25 15: Urine pH >=9.0 (5-7) A 02/22/25 15:22 Ur Specific Rose 1.026 (1.005-1.030) 02/22/25 15:22 Urine Protein 3+ (Negative) A 02/22/25 15:22 Urine Glucose (UA) Negative (Normal) 02/22/25 15:22 Urine Ketones Negative (Negative) 02/22/25 15:22 Urine Blood 2+ (Negative) A 02/22/25 15:22 Urine Nitrate Positive (Negative) A 02/22/25 15:22 Urine Bilirubin Negative (Negative) 02/22/25 15:22 Urine Urobilinogen 1.0 mg/dL (Negative) 02/22/25 15:22 Ur Leukocyte Esterase 3+ (Negative) A 02/22/25 15:22 Urine RBC 10-15 /hpf (0-2) H 02/22/25 15:22 Urine WBC 10-15 /hpf (0-5) H 02/22/25 15:22 Ur Squamous Epith Cells 0-4 /hpf (0-5) H 02/22/25 15:22 Triple Phos Crystals 15-25 /hpf H 02/22/25 15:22 Amorphous Sediment Not Reportable 02/22/25 15:22 Urine Bacteria 4+ /hpf (NONE) H 02/22/25 15:22 Blood Type O Negative 02/23/25 00:37 Rho(D) Type Rh negative 02/23/25 00:37 Antibody Screen Positive 02/23/25 00:37 Antibody Identification Anti-D 02/23/25 00:37 All radiology interpretation(s) finalized by discharge Discharge Plan Discharge Patient Disposition: Xfer Short-Term Hosp Clinical Impression: Urinary tract infection, GI (gastrointestinal bleed) Referrals: Marcus Benson MD [Primary Care Provider, [facility]] Print Language: Arabic Coding Level of Care Code ED Awning Hanger Helper for Hetal Huitron
--- NOTE | 2025-02-22 15:22 | CTR_ITS ---
PROCEDURE INFORMATION: Exam: CT Abdomen And Pelvis With Contrast Exam date and time: 02/22/2025 5:14 PM Age: 54 years old Clinical indication: Abdominal pain; Epigastric; Prior surgery; Surgery date: 6+ months; Surgery type: Hyst , bowel resection, ivc, gb, ; Additional info: Abd pain TECHNIQUE: Imaging protocol: Computed tomography of the abdomen and pelvis with contrast. Radiation optimization: All CT scans at this facility use at least one of these dose optimization techniques: automated exposure control; mA and/or kV adjustment per patient size (includes targeted exams where dose is matched to clinical indication); or iterative reconstruction. Contrast material: OMNI 350; Contrast volume: 100 ml; Contrast route: INTRAVENOUS (IV); COMPARISON: CT abdomen pelvis w con* [id number] 09/30/2024 2:57 PM RADIATION DOSE METRICS: Total DLP (mGy-cm): 1176.04 FINDINGS: Tubes, catheters and devices: Persistent suprapubic catheter in place. Associated mild bladder wall thickening persists. Lungs: Lung bases: 9 mm left lower lobe calcification. Calcified hilar lymph nodes are compatible with granulomatous exposure. Heart: Density in the right atrium suggests the presence of an intravenous catheter. Liver: The liver is diffusely decreased in density, compatible with hepatic steatosis. Small geographic areas of low-density in the medial segment of the left lobe favor additional focal fatty infiltration. Unchanged 16 mm exophytic cyst protruding from the lateral segment of the left lobe. Gallbladder and biliary ducts: Post cholecystectomy. Slight interval enlargement of the common duct to 11 mm, without obstructing focus identified. Very slight central intrahepatic biliary dilatation. Pancreas: Fatty infiltration involving the pancreas is again noted. No pancreas or peripancreatic inflammatory changes. Spleen: The spleen is normal. Adrenal glands: The adrenal glands are normal. Kidneys and ureters: No hydronephrosis or nephrolithiasis. Stomach and bowel: A large left abdominal wall hernia persists, incompletely included on images. The hernia sac contains loops of colon, small bowel and mesenteric fat. A loop of bowel within the sac contains fluid and air-fluid levels, which could represent small bowel or colon. Both nondistended and fluid-filled, distended bowel loops are noted in the hernia sac. Remaining bowel within the abdominal cavity is normal in caliber or collapsed. Appendix: Normal appendix. Intraperitoneal space: No free intraperitoneal fluid or gas. Mild strand-like increased density is present in the mesenteric fat within the hernia sac. Surgical clips are again noted in the pelvis. Vasculature: Unchanged inferior vena cava filter. Aortic caliber is normal. Lymph nodes: No lymph node enlargement. Urinary bladder: See Tubes, catheters and devices finding. Reproductive: There has been a hysterectomy. No adnexal cysts or masses are identified. 3 cm linear calcification persists in the region of the vagina, slightly enlarged since the prior exam. Bones/joints: L5 spondylolysis again noted. Soft tissues: Subcutaneous fluid collection lateral to the right hip appears decreased in size. CT/CT abdomen pelvis w con* [id number] IMPRESSION: 1. Distended fluid-filled loops of bowel are noted in the large left abdominal hernia sac, which was incompletely imaged on this exam. Bowel may communicate with an ostomy in this location, which is not definitely imaged. Possibility of localized bowel obstruction within the hernia sac should be considered, and can be further evaluated with oral contrast-enhanced CT or plain radiographs. 2. Mild interval enlargement of the common bile duct without obstructing focus identified. If there is clinical concern for biliary obstruction, sonography or MRCP could be obtained. 3. Decreasing subcutaneous fluid collection lateral to the right hip COMMENTS: For patients with an IVC filter, recommend assessment for a management plan for the patient's IVC filter. If there is no established management plan, recommend referral to an interventional clinician on a nonemergent basis for evaluation.
[2025-02-22 15:38] LABS: Glucose Urine UA Negative (Normal); Nitrate Urine Positive (Negative); Specific Gravity, Urine 1.026 (1.005-1.030)
[2025-02-22 16:03] LABS: Add Urine Microscopic? YES; UA Manual Slide Review YES
[2025-02-22] MEDS: iohexol 350 mg/mL 500 mL Btl (per mL) IV ×2 (17:22→20:17)
--- NOTE | 2025-02-22 18:36 | CTR_ITS ---
PROCEDURE INFORMATION: Exam: CT Abdomen And Pelvis With Contrast Exam date and time: 02/22/2025 8:15 PM Age: 54 years old Clinical indication: Abdominal pain; Other: Left; Additional info: Concern for imcomplete evaluation on first CT, needs po contrast and re imaging capturing the entirety of TECHNIQUE: Imaging protocol: Computed tomography of the abdomen and pelvis with contrast. Radiation optimization: All CT scans at this facility use at least one of these dose optimization techniques: automated exposure control; mA and/or kV adjustment per patient size (includes targeted exams where dose is matched to clinical indication); or iterative reconstruction. Contrast material: OMNI 350; Contrast volume: 100 ml; Contrast route: INTRAVENOUS (IV); COMPARISON: CT abdomen pelvis w con* [id number] 02/22/2025 5:14 PM RADIATION DOSE METRICS: Total DLP (mGy-cm): 1099.87 FINDINGS: Tubes, catheters and devices: Stable appearance of suprapubic Mahajan catheter. Liver: Stable appearance of 1.6 cm exophytic cyst protruding from the lateral segment of the left hepatic lobe. No suspicious hepatic masses. Gallbladder and biliary ducts: Status post cholecystectomy. The common bile duct remains mildly dilated up to 0.9 cm. This is a common chronic finding post cholecystectomy. Pancreas: Severe fatty atrophy of the pancreas. No pancreatic ductal dilation. Spleen: The spleen is unremarkable. Adrenal glands: The adrenal glands are unremarkable. Kidneys and ureters: Kidneys are normal. No hydronephrosis or nephrolithiasis. Stomach and bowel: No evidence of bowel obstruction. Appendix: No evidence of acute appendicitis. Intraperitoneal space: No extraluminal free air. Vasculature: IVC filter present. Minimal scattered calcific atheromatous disease of the abdominal aorta and its major branches. No abdominal aortic aneurysm. Lymph nodes: No distinct pathologically enlarged lymphadenopathy. Urinary bladder: Urinary bladder demonstrates mild diffuse bladder wall thickening, unchanged. Reproductive: Uterus is absent. Bones/joints: Stable grade 1 anterolisthesis of L5 on S1. No distinct acute osseous findings. Soft tissues: Stable coarse calcifications in the subcutaneous left paraspinal soft tissues at the level of the lumbar spine. Redemonstrated large ventral abdominal hernia, with much of the large and small bowels present within the hernia sac. Soft tissues lateral to the right hip are excluded from the [id number] on current study. CT/CT abdomen pelvis w con* [id number] IMPRESSION: 1. Redemonstrated large ventral abdominal hernia, with much of the large and small bowels present within the hernia sac. 2. No evidence of bowel obstruction. 3. Status post cholecystectomy. The common bile duct remains mildly dilated up to 0.9 cm. This is a common chronic finding post cholecystectomy. 4. Urinary bladder demonstrates mild diffuse bladder wall thickening, unchanged. 5. Soft tissues lateral to the right hip are excluded from the [id number] on current study. COMMENTS: For patients with an IVC filter, recommend assessment for a management plan for the patient's IVC filter. If there is no established management plan, recommend referral to an interventional clinician on a nonemergent basis for evaluation.
[2025-02-22] MEDS: cefTRIAXone 1,000 mg SDV 1000 MG IVP (19:19)
[2025-02-22 20:14] LABS: Lactic Sepsis W/Reflex 1.1 mmol/L (0.5-2.2)
[2025-02-22] MEDS: morphine 4 mg/mL SDV 1 mL 2 MG IVP (20:26)
[2025-02-22] MEDS: ondansetron 2 mg/ML SDV 2 mL 4 MG IVP (20:26)
[2025-02-22 23:41] LABS: Hemoglobin 11.10 g/dL (11.27-16.99)
[2025-02-23] VITALS (8 sets, daily range): BP systolic 100–140; BP diastolic 53–77; PULSE 98–104; RESP 15–20; O2SAT 94–100
[2025-02-23 04:36] LABS: Hemoglobin 10.40 g/dL (11.27-16.99)
[2025-02-23 07:08] LABS: Hematocrit 33.6 % (36-47); Hemoglobin 10.30 g/dL (11.27-16.99); Mean Corpuscular HGB Conc 30.7 g/dL (30-55); Mean Corpuscular Hemoglobin 30.3 pg (27-33); Mean Corpuscular Volume 98.8 fl (85-98); Nucleated Red Blood Cells % 0 %; Platelet Count 393 10^3/cmm (157-399); Red Blood Count 3.40 10^6/uL (3.85-5.65); White Blood Count 5.02 10^3/uL (3.29-11.43)
[2025-02-23 07:24] LABS: Anion Gap 14.8 (5-19); Blood Urea Nitrogen 40 mg/dL (6-20); Calcium 8.8 mg/dL (8.5-10.5); Carbon Dioxide 20 mmol/L (22-29); Chloride 105 mmol/L (98-107); Creatinine Clr Calc Pharmacy 109.0561; Glucose 107 mg/dL (65-115); Osmolality Calculated 290 mOsm/kg (285-295); Potassium 4.8 mmol/L (3.5-5.1); Sodium 135 mmol/L (136-145)
--- NOTE | 2025-02-23 07:40 | PC.NURSE ---
this nurse took pt report from NISHANT Arthur at 0700. Sandhya gave protonix but documentation did not save.
--- NOTE | 2025-02-23 07:42 | PC.NURSE ---
this RN and NISHANT Greer changed chux pads that were placed under pt, placed pt in new gown, and put brief around pt. pt tolerated well and has no other needs at this time.
--- NOTE | 2025-02-23 08:37 | PC.PHAR ---
Pt takes most of her medications in the evening. Pt is concerned she did not get any of her meds last night. Pt is on Xarelto 20mg.
[2025-02-24 08:37] LABS: Micrococcus Detected (NOT DETECT)
== END 2025-02-23 09:23 | disposition short-term general hospital (02) ==
PROVIDERS: Emergency Medicine; Emergency Provider Family Medicine; PCP Family Medicine
DX: N39.0 Urinary tract infection, site not specified (principal); K92.2 Gastrointestinal hemorrhage, unspecified
CPT/HCPCS: 36415; 74177; 80048; 80053; 80503; 81001; 83605; 83690; 85018; 85025; 86850; 86870; 86900; 87040; 87077; 87086; 87150; 87186; 87205; 96361; 96374; 96375; 99285; J0696; J2270; J2405; J7030; J7040; J9999

== ENCOUNTER 2025-03-01 13:15 | Oncology outpatient (recurring) (ONCR) | payer OTHER, MEDICAID, SELFPAY ==
[2025-02-08 13:54] LABS: Hematocrit 41.2 % (36-47); Hemoglobin 13.30 g/dL (11.27-16.99); Mean Corpuscular HGB Conc 32.3 g/dL (30-55); Mean Corpuscular Hemoglobin 30.5 pg (27-33); Mean Corpuscular Volume 94.5 fl (85-98); Nucleated Red Blood Cells % 0 %; Platelet Count 534 10^3/cmm (157-399); Red Blood Count 4.36 10^6/uL (3.85-5.65); White Blood Count 6.94 10^3/uL (3.29-11.43)
--- NOTE | 2025-02-08 13:54 | PC.NURSE ---
Central line dressing change completed via sterile technique. Pt tolerated well. No redness or irritation noted at insertion site.
[2025-02-08 14:09] LABS: Alanine Aminotransferase 63 U/L (0-33); Albumin Level 3.3 g/dL (3.5-5.2); Alkaline Phosphatase 216 U/L (35-105); Anion Gap 15.9 (5-19); Aspartate Amino Transferase 49 U/L (0-32); Blood Urea Nitrogen 41 mg/dL (6-20); Calcium 9.4 mg/dL (8.5-10.5); Carbon Dioxide 19 mmol/L (22-29); Chloride 105 mmol/L (98-107); Globulin 4.7 g/dL (1.3-4.6); Glucose 87 mg/dL (65-115); Magnesium 2.4 mg/dL (1.7-2.3); Osmolality Calculated 289 mOsm/kg (285-295); Potassium 4.9 mmol/L (3.5-5.1); Sodium 135 mmol/L (136-145); Total Protein 8.0 g/dL (6.6-8.7); Triglycerides 133 mg/dL (0-150)
[2025-02-15 13:58] LABS: Hematocrit 39.4 % (36-47); Hemoglobin 12.30 g/dL (11.27-16.99); Mean Corpuscular HGB Conc 31.2 g/dL (30-55); Mean Corpuscular Hemoglobin 29.7 pg (27-33); Mean Corpuscular Volume 95.2 fl (85-98); Nucleated Red Blood Cells % 0 %; Platelet Count 507 10^3/cmm (157-399); Red Blood Count 4.14 10^6/uL (3.85-5.65); White Blood Count 7.29 10^3/uL (3.29-11.43)
[2025-02-15 14:15] LABS: Alanine Aminotransferase 43 U/L (0-33); Albumin Level 3.2 g/dL (3.5-5.2); Alkaline Phosphatase 174 U/L (35-105); Anion Gap 14.4 (5-19); Aspartate Amino Transferase 32 U/L (0-32); Blood Urea Nitrogen 39 mg/dL (6-20); Calcium 9.2 mg/dL (8.5-10.5); Carbon Dioxide 20 mmol/L (22-29); Chloride 103 mmol/L (98-107); Globulin 4.5 g/dL (1.3-4.6); Glucose 95 mg/dL (65-115); Magnesium 2.1 mg/dL (1.7-2.3); Osmolality Calculated 285 mOsm/kg (285-295); Potassium 4.4 mmol/L (3.5-5.1); Sodium 133 mmol/L (136-145); Total Protein 7.7 g/dL (6.6-8.7); Triglycerides 126 mg/dL (0-150)
[2025-02-22 13:41] LABS: Hematocrit 41.3 % (36-47); Hemoglobin 12.60 g/dL (11.27-16.99); Mean Corpuscular HGB Conc 30.5 g/dL (30-55); Mean Corpuscular Hemoglobin 30.3 pg (27-33); Mean Corpuscular Volume 99.3 fl (85-98); Nucleated Red Blood Cells % 0 %; Platelet Count 498 10^3/cmm (157-399); Red Blood Count 4.16 10^6/uL (3.85-5.65); White Blood Count 7.47 10^3/uL (3.29-11.43)
[2025-02-22 13:57] LABS: Alanine Aminotransferase 28 U/L (0-33); Albumin Level 3.7 g/dL (3.5-5.2); Alkaline Phosphatase 152 U/L (35-105); Anion Gap 15.7 (5-19); Aspartate Amino Transferase 29 U/L (0-32); Blood Urea Nitrogen 52 mg/dL (6-20); Calcium 9.3 mg/dL (8.5-10.5); Carbon Dioxide 20 mmol/L (22-29); Chloride 105 mmol/L (98-107); Globulin 3.9 g/dL (1.3-4.6); Glucose 109 mg/dL (65-115); Magnesium 2.6 mg/dL (1.7-2.3); Osmolality Calculated 297 mOsm/kg (285-295); Potassium 4.7 mmol/L (3.5-5.1); Sodium 136 mmol/L (136-145); Total Protein 7.6 g/dL (6.6-8.7); Triglycerides 145 mg/dL (0-150)
--- NOTE | 2025-02-22 16:51 | PC.NURSE ---
Central line dressing changed via sterile technique. No redness or irritation noted. Slight blood return from one lumen. Unable to get blood return from other. Pt tolerated well.
[2025-03-01 13:03] LABS: Hematocrit 35.9 % (36-47); Hemoglobin 11.10 g/dL (11.27-16.99); Mean Corpuscular HGB Conc 30.9 g/dL (30-55); Mean Corpuscular Hemoglobin 30.8 pg (27-33); Mean Corpuscular Volume 99.7 fl (85-98); Nucleated Red Blood Cells % 0 %; Platelet Count 325 10^3/cmm (157-399); Red Blood Count 3.60 10^6/uL (3.85-5.65); White Blood Count 7.40 10^3/uL (3.29-11.43)
[2025-03-01 13:23] LABS: Alanine Aminotransferase 20 U/L (0-33); Albumin Level 3.2 g/dL (3.5-5.2); Alkaline Phosphatase 154 U/L (35-105); Anion Gap 17.8 (5-19); Aspartate Amino Transferase 20 U/L (0-32); Blood Urea Nitrogen 49 mg/dL (6-20); Calcium 8.7 mg/dL (8.5-10.5); Carbon Dioxide 17 mmol/L (22-29); Chloride 106 mmol/L (98-107); Globulin 4.5 g/dL (1.3-4.6); Glucose 124 mg/dL (65-115); Magnesium 2.9 mg/dL (1.7-2.3); Osmolality Calculated 296 mOsm/kg (285-295); Potassium 4.8 mmol/L (3.5-5.1); Sodium 136 mmol/L (136-145); Total Protein 7.7 g/dL (6.6-8.7)
--- NOTE | 2025-03-01 16:15 | PC.NURSE ---
Changed pts central line dressing via sterile technique. Slight redness noted around insertion site, does not look infected. Pt tolerated well.
== END 2025-03-07 23:59 | disposition home or self-care (01) ==
PROVIDERS: PCP Family Medicine; Visit Provider Family Medicine
DX: M72.6 Necrotizing fasciitis; Z53.9 Procedure and treatment not carried out, unspecified reason
CPT/HCPCS: 11056; 11721; 36415; 80053; 83735; 84100; 84478; 85025

== ENCOUNTER 2025-03-04 14:51 | Emergency (ER) | payer OTHER, MEDICAID, SELFPAY ==
--- OUTSIDE RECORDS SUMMARY | 2003-07-07 19:00 | XMS_ITS | Continuity of Care Document ---
Author Name [facility] Address [address] [place] [address] Organization [facility] Care Team Providers Care Operations Tech Name Role Phone [facility] Unavailable Unavailable Allergies, Adverse Reactions, Alerts Substance Category Reaction Severity Reaction type Status Date Reported Comments Source penicillin Assertion Convulsion Severe Drug allergy Active [facility] vancomycin Assertion Drug allergy Active [facility] Ultram Assertion Itching Mild Drug allergy Active [facility] Tape - See Comment Assertion Allergy to substance Active [facility]
[2025-03-04] VITALS (11 sets, daily range): BP systolic 107–163; BP diastolic 50–84; PULSE 92–103; RESP 18; TEMP 36.6; O2SAT 90–100; BMI 40.4
--- NOTE | 2025-03-04 14:56 | ECG_ITS ---
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 Measurements Intervals [place] Rate: 89 P: 21 CO: 136 QRS: 8 QRSD: 93 T: 23 QT: 316 QTc: 385 Interpretive Statements SINUS RHYTHM MODERATE VOLTAGE CRITERIA FOR LVH, CONSIDER NORMAL VARIANT [MEETS CRITERIA IN ONE OF: R(aVL), S(V1), R(V5), R(V5/V6)+S(V1)] Compared to ECG 08/29/2024 09:01:45 Sinus tachycardia no longer present T-wave abnormality no longer present Electronically Signed On 03-05-2025 22:41:10 CDT by Wes Chavez M.D. [email or web address]
--- NOTE | 2025-03-04 15:10 | W.ED.AMS ---
HPI - Altered Mental Status General: Chief Complaint: Altered Mental Status Stated Complaint: hypotension, weakness Time Seen by Provider: 03/04/25 14:52 History of Present Illness: 54-year-old female with a history of colostomy after she says her bowel was nicked during a surgery, morbid obesity, chronic anticoagulation on Xarelto, history of DVT, peripheral vascular disease, depression, and a chronic sacral wound for which she was at wound care receiving care when she was found to be hypotensive and sent to the emergency room by ambulance. She says she has not been feeling any worse than usual. Maybe a little bit more weak. EMS reports when they got there blood pressure was over 100 systolic. On presentation here she is 107/73. In no distress. No fevers. No cough. No abdominal pain. No vomiting. Related Data Home Medications ?Medication ?Instructions ?Recorded ?Confirmed gabapentin 600 mg tablet 600 mg PO BEDTIME 04/12/20 03/04/25 venlafaxine 150 mg 150 mg PO BEDTIME 04/12/20 03/04/25 capsule,extended release 24 hr baclofen 20 mg tablet 20 mg PO BEDTIME 02/26/23 03/04/25 trazodone 50 mg tablet 25 mg PO BEDTIME 09/24/23 03/04/25 diphenoxylate-atropine 2.5 2 tab PO QID 02/04/25 03/04/25 mg-0.025 mg tablet loperamide 2 mg capsule 4 mg PO QID PRN Diarrhea 02/04/25 03/04/25 omeprazole 40 mg capsule,delayed 40 mg PO DAILY 02/04/25 03/04/25 release sulfamethoxazole 400 1 tab PO DAILY 02/04/25 03/04/25 mg-trimethoprim 80 mg tablet ondansetron 8 mg disintegrating 8 mg PO TID PRN Nausea And Vomiting 02/23/25 03/04/25 tablet apixaban 5 mg tablet (Eliquis) 5 mg PO BID 03/04/25 03/04/25 pantoprazole 40 mg tablet,delayed 40 mg PO BID 03/04/25 03/04/25 release Previous Rx's ?Medication ?Instructions ?Recorded prothrombin time/INR test metr #30 ea 08/24/24 cefdinir 300 mg capsule 300 mg PO BID 7 days #14 caps 03/04/25 Allergies Allergy/AdvReac Type Severity Reaction Status Date / Time levofloxacin (From Levaquin) Allergy Unknown Unknown Verified 02/22/25 13:52 azithromycin Allergy Unknown Verified 02/22/25 13:52 Penicillins Allergy Unknown Verified 02/22/25 13:52 tramadol (From Ultram) Allergy Unknown Verified 02/22/25 13:52 vancomycin Allergy Unknown Verified 02/22/25 13:52 amoxicillin AdvReac Unknown ADR-Seizure Verified 02/22/25 13:52 Review of Systems Narrative: Constitutional symptoms: Negative except as documented in HPI. Skin symptoms: Negative except as documented in HPI. Eye symptoms: Negative except as documented in HPI. ENMT symptoms: Negative except as documented in HPI. Respiratory symptoms: Negative except as documented in HPI. Cardiovascular symptoms: Negative except as documented in HPI. Gastrointestinal symptoms: Negative except as documented in HPI. Genitourinary symptoms: Negative except as documented in HPI. Musculoskeletal symptoms: Negative except as documented in HPI. Neurologic symptoms: Negative except as documented in HPI. Psychiatric symptoms: Negative except as documented in HPI. Endocrine symptoms: Negative except as documented in HPI. PFS ED PFSH: Medical History (Updated 03/04/25 @ 17:21 by Whitley Funez MD) Shock Groin hematoma BMI 50.0-59.9, adult Chronic anticoagulation History of angiography 2015 abdominal angiography and lower extremity angiography - normal abdominal aorta, pelvic vessels normal, all lower extremity vessels unremarkable, 3 vessel runoff below both knees History of cardiovascular stress test 07/2024 abnormalities on myocardial perfusion scanning History of sleep study 05/2017 - cpap auto-titrating 15-19 Wound of sacral region goes to wound care clinic Abscess of sacrum Parastomal hernia Ventral incisional hernia GERD (gastroesophageal reflux disease) Depression Fracture of fifth toe, right, closed History of sleep apnea sleep study in 2017 recommended auto-titrating cpap 15-[address] Complications of surgery for ovarian cyst around 2004 resulting in bowel injury Chronic venous insufficiency of lower extremity PVD (peripheral vascular disease) History of DVT (deep vein thrombosis) (2004) and pulmonary embolism 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 Chronic osteomyelitis Neurogenic bladder Chronic cystitis Surgical History History of carpal tunnel release History of abdominal surgery (2007) excision of pelvic cysts complicated by bowel perforation, had multiple procedures including colostomy History of inferior vena caval filter placement (2004) still in place in 08/2024 History of incision and drainage (04/2019) sacral wound History of back surgery (2004) for spinal abscess x 2 History of hysterectomy (2003) S/P cholecystectomy S/P section Suprapubic catheter (~2004) following urology in [place] Family History Family/Other Diabetes Cancer CAD (coronary artery disease) Mother , at age 74 Sepsis Cancer melanoma Diabetes Father Heart disease Other Dementia Diabetes mellitus type 1 Hypertension Stroke Social History Smoking and tobacco/nicotine status: never used tobacco/nicotine Alcohol intake: never Substance/Drug Use: never Additional social history: daughter performs dressing changes twice per day, she and other family provide assistance as needed, wheelchair dependent, able to use transfer board Caregiver/support person: Yes Lives independently: Yes Marital status: Current occupational status: disabled Physical Exam Narrative: General: Alert, no acute distress. Skin: Warm, dry. Head: Normocephalic, atraumatic. Neck: Supple, trachea midline. Eye: Extraocular movements are intact. Ears, nose, mouth and throat: mucosa moist. Cardiovascular: Regular, Normal peripheral perfusion. Respiratory: Lungs are clear to auscultation, respirations are non-labored, breath sounds are equal, Symmetrical chest wall expansion. Gastrointestinal: Soft, Nontender, Non distended Musculoskeletal: Normal ROM, no deformity. Neurological: Alert and oriented, No focal neurological deficit observed. Psychiatric: Cooperative, appropriate mood & affect. Course Vital Signs: Vital signs: Vital Signs Temperature 97.9 F 03/04/25 14:59 Pulse Rate 96 03/04/25 16:16 Respiratory Rate 18 03/04/25 14:59 Blood Pressure 108/55 03/04/25 16:16 Pulse Oximetry 92 03/04/25 16:16 Oxygen Delivery Me thod Room Air 03/04/25 16:16 MDM - Altered Mental Status Medical Decision Making Medical decision making: Differential diagnosis for patient presenting with generalized weakness including but not limited to and based on the above HPI, review of systems and physical exam: Sepsis. Dehydration. Renal failure. Electrolyte abnormalities. Anemia. Congestive heart failure. Hypotension. Coronary syndrome. Hepatitis. Cirrhosis. Infections such as pneumonia, urinary tract infection, [place]ne illness, Cellulitis, Viral infections including influenza and Covid-19. Workup: labwork and lab/exam driven imaging ordered to evaluate, rule in and rule out above pathologies. Lab Review: Laboratory results were reviewed and interpreted by myself the emergency room physician. No leukocytosis. Gradually worsening anemia over the last few draws. BUN and creatinine elevated over baseline at 53 and 1.5. Urinalysis positive for infection with 4+ bacteria 6-10 whites. Nitrite positive. I reviewed the patient's medical record. Reexamination: Patient remained stable. No increased work of breathing. No altered mental status. No focal motor deficits. Blood pressure and heart rate have remained at the patient's baseline. Her pressures are usually between upper 90s and around 115. Assessment and plan: Urinary tract infection Dehydration ?Normal saline bolus and IV Rocephin - Discharged home - Discussed plan with patient. Answered any questions. - Evaluation and treatment of this problem were appropriate in the emergency setting. Lab Data 03/04/25 15:55 03/04/25 15:55 Laboratory Results WBC 4.91 10^3/uL (3.29-11.43) 03/04/25 15:55 RBC 3.18 10^6/uL (3.85-5.65) L 03/04/25 15:55 Hgb 9.60 g/dL (11.27-16.99) L 03/04/25 15:55 Hct 30.9 % (36-47) L 03/04/25 15:55 MCV 97.2 fl (85-98) 03/04/25 15:55 MCH 30.2 pg (27-33) 03/04/25 15:55 MCHC 31.1 g/dL (30-55) 03/04/25 15:55 RDW 15.4 % (12.1-15.1) H 03/04/25 15:55 Plt Count 319 10^3/cmm (157-399) 03/04/25 15:55 MPV 11.7 fL (7.4-10.4) H 03/04/25 15:55 Neut % (Auto) 74.6 % 03/04/25 15:55 Lymph % (Auto) 11.2 % 03/04/25 15:55 [place] % (Auto) 13.0 % 03/04/25 15:55 Eos % (Auto) 0.4 % 03/04/25 15:55 Baso % (Auto) 0.4 % 03/04/25 15:55 Neut # (Auto) 3.66 10^3/uL (1.8-7.7) 03/04/25 15:55 Lymph # (Auto) 0.6 10^3/uL (0.8-4.8) L 03/04/25 15:55 [place] # (Auto) 0.6 10^3/uL (0.2-0.9) 03/04/25 15:55 Eos # (Auto) 0.0 10^3/uL (0.0-0.8) 03/04/25 15:55 Baso # (Auto) 0.0 10^3/uL (0.0-0.1) 03/04/25 15:55 Nucleated RBC % (auto) 0 % 03/04/25 15:55 Nucleated RBCs # 0.0 /100WBC 03/04/25 15:55 Sodium 131 mmol/L (136-145) L 03/04/25 15:55 Potassium 4.3 mmol/L (3.5-5.1) 03/04/25 15:55 Chloride 101 mmol/L (98-107) 03/04/25 15:55 Carbon Dioxide 15 mmol/L (22-29) L 03/04/25 15:55 Anion Gap 19.3 (5-19) H 03/04/25 15:55 BUN 53 mg/dL (6-20) H 03/04/25 15:55 Creatinine 1.5 mg/dL (0.5-0.9) H 03/04/25 15:55 GFR Calculation 35.9 mL/min (90-130) L 03/04/25 15:55 Glucose 115 mg/dL (65-115) 03/04/25 15:55 Calculated Osmolality 287 mOsm/kg (285-295) 03/04/25 15:55 Lactic Acid 2.1 mmol/L (0.5-2.2) 03/04/25 15:55 Calcium 8.8 mg/dL (8.5-10.5) 03/04/25 15:55 Total Bilirubin 0.4 mg/dL (0.15-1.2) 03/04/25 15:55 AST 89 U/L (0-32) H 03/04/25 15:55 ALT 81 U/L (0-33) H 03/04/25 15:55 Alkaline Phosphatase 349 U/L (35-105) H 03/04/25 15:55 Total Protein 7.5 g/dL (6.6-8.7) 03/04/25 15:55 Albumin 2.8 g/dL (3.5-5.2) L 03/04/25 15:55 Globulin 4.7 g/dL (1.3-4.6) H 03/04/25 15:55 Urine Color Yellow (Yellow) 03/04/25 15:58 Urine Appearance Turbid (CLEAR) A 03/04/25 15:58 Urine pH >=9.0 (5-7) A 03/04/25 15:58 Ur Specific Wiggins 1.021 (1.005-1.030) 03/04/25 15:58 Urine Protein 4+ (Negative) A 03/04/25 15:58 Urine Glucose (UA) 1+ (Normal) H 03/04/25 15:58 Urine Ketones Negative (Negative) 03/04/25 15:58 Urine Blood 1+ (Negative) A 03/04/25 15:58 Urine Nitrate Positive (Negative) A 03/04/25 15:58 Urine Bilirubin Negative (Negative) 03/04/25 15:58 Urine Urobilinogen 1.0 mg/dL (Negative) 03/04/25 15:58 Ur Leukocyte Esterase 2+ (Negative) A 03/04/25 15:58 Urine RBC 21-50 /hpf (0-2) H 03/04/25 15:58 Urine WBC 6-10 /hpf (0-5) 03/04/25 15:58 Ur Squamous Epith Cells 0-5 /hpf (0-5) 03/04/25 15:58 Amorphous Sediment Not Reportable 03/04/25 15:58 Urine Bacteria 4+ /hpf (NONE) H 03/04/25 15:58 Hyaline Casts 33.78 /lpf 03/04/25 15:58 Influenza A (PCR) Negative (Negative) 03/04/25 15:58 Influenza Type B (PCR) Negative (Negative) 03/04/25 15:58 RSV (PCR) Negative (Negative) 03/04/25 15:58 SARS-CoV-2 (PCR) Negative (Negative) 03/04/25 15:58 No radiology studies performed this visit Discharge Plan Discharge Patient Disposition: Home Clinical Impression: Urinary tract infection, Dehydration Condition: Stable Prescriptions: New cefdinir 300 mg capsule 300 mg PO BID 7 Days Qty: 14 0RF No Action gabapentin 600 mg tablet 600 mg PO BEDTIME venlafaxine 150 mg capsule,extended release 24hr 150 mg PO BEDTIME trazodone 50 mg tablet 25 mg PO BEDTIME (DME) prothrombin time/INR test metr Misc See Rx Instructions .Route Qty: 30 0RF Rx Instructions: As directed- INR strips loperamide 2 mg capsule 4 mg PO QID PRN (Reason: Diarrhea) sulfamethoxazole-trimethoprim 400-80 mg tablet 1 tab PO DAILY diphenoxylate-atropine 2.5-0.025 mg tablet 2 tab PO QID omeprazole 40 mg capsule,delayed release(DR/EC) 40 mg PO DAILY ondansetron 8 mg tablet,disintegrating 8 mg PO TID PRN (Reason: Nausea And Vomiting) baclofen 20 mg tablet 20 mg PO BEDTIME pantoprazole 40 mg tablet,delayed release (DR/EC) 40 mg PO BID Eliquis 5 mg tablet 5 mg PO BID Discharge Orders: Discharge ED (Routine); Ordered 03/04/25 Ordered By: Whitley Funez Referrals: Marcus Benson MD [Primary Care Provider, Family Practice] Discharge Diet: Usual diet Discharge Activity: Increase activity as tolerated Patient Instructions: Urinary Tract Infection in Older Adults (ED), Opioid Safety, Pain Management, Patient Portal & Jodie Instructions Activity Restrictions/Additional Instructions: Thank you for choosing [facility] for your healthcare needs today. You have been screened and evaluated and felt safe for discharge. Health conditions do change or evolve sometimes and as such it is important that you follow up with your Primary Doctor to be re checked, 3-5 days is a general good time frame for follow up. You are always welcome to return to the ED for re assessment if your symptoms are worsening or you have new concerns Print Language: Djiboutian Coding Level of Care Code ED Quarter Section Ironer for Hetal Huitron
--- OUTSIDE RECORDS SUMMARY | 2025-03-04 15:15 | XMS_ITS | Encounter Summary ---
Author Organization [facility] Address [address] [place] [address] Care Team Providers Care Supply Chain Buyer Name Role Phone Jose Bowers MD Primary Care Provider Levon le Encounter Details Date Type Department Care Team (Late st Contact Info) Description 05/01/2008 Outpatient Historical HIS IN BED Sj Ed, Physician NO ADDRESS ON FILE Cassie Woodruff MD [address] [place] [phone] Riky Mejía MD NO ADDRESS ON FILE [...] file Legal Sex Female 6:28 AM SUPERVISOR POWER REACTOR Gender Identity Not on file Sexual Orientation Not on file documented as of this encounter Plan of Treatment Not on file documented as of this encounter Procedures Procedure Name Priority Date/Time Associated Diagnosis Comments POC GLUCOSE Routine 05/12/2008 7:37 AM SUPERVISOR POWER REACTOR POC GLUCOSE Routine 05/11/2008 9:43 PM SUPERVISOR POWER REACTOR POC GLUCOSE Routine 05/11/2008 5:35 PM SUPERVISOR POWER REACTOR POC GLUCOSE Routine 05/11/2008 11:40 AM SUPERVISOR POWER REACTOR POC GLUCOSE Routine 05/11/2008 7:38 AM SUPERVISOR POWER REACTOR POC GLUCOSE Routine 05/10/2008 9:54 PM SUPERVISOR POWER REACTOR POC GLUCOSE Routine 05/10/2008 5:34 PM SUPERVISOR POWER REACTOR POC GLUCOSE Routine 05/10/2008 12:08 PM SUPERVISOR POWER REACTOR POC GLUCOSE Routine 05/10/2008 8:31 AM SUPERVISOR POWER REACTOR CBC WITH DIFFERENTIAL Routine 05/10/2008 5:47 AM SUPERVISOR POWER REACTOR COMPREHENSIVE METABOLIC PANEL Routine 05/10/2008 5:47 AM SUPERVISOR POWER REACTOR POC GLUCOSE Routine 05/09/2008 9:17 PM SUPERVISOR POWER REACTOR POC GLUCOSE Routine 05/09/2008 6:31 PM SUPERVISOR POWER REACTOR POC GLUCOSE Routine 05/09/2008 12:20 PM SUPERVISOR POWER REACTOR POC GLUCOSE Routine 05/09/2008 8:50 AM SUPERVISOR POWER REACTOR POC GLUCOSE Routine 05/08/2008 8:06 PM CDT [...] * (ABNORMAL) POC GLUCOSE (05/12/2008 7:37 AM SUPERVISOR POWER REACTOR) GLUCOSE POC 124(H) 60 - 100 mg/dL [facility] Venous blood specimen (specimen) 05/12/2008 7:37 AM SUPERVISOR POWER REACTOR 05/13/2008 3:52 AM SUPERVISOR POWER REACTOR us Riky Mejía MD POINT OF CARE TESTING Final Result Performing Organization Address [facility] Phone Number INTERFACE SYSTEM Refer to clinic/hospital department [facility] CLIA# [id number] [address] [place] [address] * (ABNORMAL) POC GLUCOSE (05/11/2008 9:43 PM SUPERVISOR POWER REACTOR) GLUCOSE POC 123(H) 60 - 100 mg/dL [facility] Venous blood specimen (specimen) 05/11/2008 9:43 PM SUPERVISOR POWER REACTOR 05/12/2008 3:33 AM SUPERVISOR POWER REACTOR us Riky Mejía MD POINT OF CARE TESTING Final Result Performing Organization Address [facility] de Phone Number INTERFACE SYSTEM Refer to clinic/hospital department [facility] CLIA# [id number] [address] [place] [address] * (ABNORMAL) POC GLUCOSE (05/11/2008 5:35 PM SUPERVISOR POWER REACTOR) GLUCOSE POC 117(H) 60 - 100 mg/dL [facility] Venous blood specimen (specimen) 05/11/2008 5:35 PM SUPERVISOR POWER REACTOR 05/12/2008 3:33 AM SUPERVISOR POWER REACTOR Riky Mejía MD POINT OF CARE TESTING Final Result Performing Organization Address City/[facility] de Phone Number INTERFACE SYSTEM Refer to clinic/hospital department [facility] CLIA# [id number] [address] [place] [address] * (ABNORMAL) POC GLUCOSE (05/11/2008 11:40 AM SUPERVISOR POWER REACTOR) GLUCOSE POC 132(H) 60 - 100 mg/dL [facility] Venous blood specimen (specimen) 05/11/2008 11:40 AM SUPERVISOR POWER REACTOR 05/12/2008 3:30 AM SUPERVISOR POWER REACTOR Riky Mejía MD POINT OF CARE TESTING Final Result Performing Organization Address [facility] Phone Number INTERFACE SYSTEM Refer to clinic/hospital department [facility] CLIA# [id number] [address] [place] [address] * (ABNORMAL) POC GLUCOSE (05/11/2008 7:38 AM SUPERVISOR POWER REACTOR) GLUCOSE POC 121(H) 60 - 100 mg/dL [facility] Venous blood specimen (specimen) 05/11/2008 7:38 AM SUPERVISOR POWER REACTOR 05/12/2008 3:33 AM SUPERVISOR POWER REACTOR Riky Mejía MD POINT OF CARE TESTING Final Result Performing Organization Address [facility] de Phone Number INTERFACE SYSTEM Refer to clinic/[facility] CLIA# [id number] [address] [place] [address] * (ABNORMAL) POC GLUCOSE (05/10/2008 9:54 PM SUPERVISOR POWER REACTOR) GLUCOSE POC 122(H) 60 - 100 mg/dL [facility] Venous blood specimen (specimen) 05/10/2008 9:54 PM SUPERVISOR POWER REACTOR 05/11/2008 4:24 AM SUPERVISOR POWER REACTOR Riky Mejía MD POINT OF CARE TESTING Final Result Performing Organization Address [facility] Phone Number INTERFACE SYSTEM Refer to clinic/hospital department [facility] CLIA# [id number] [address] [place] [address] * (ABNORMAL) POC GLUCOSE (05/10/2008 5:34 PM SUPERVISOR POWER REACTOR) GLUCOSE POC 111(H) 60 - 100 mg/dL [facility] Venous blood specimen (specimen) 05/10/2008 5:34 PM SUPERVISOR POWER REACTOR 05/11/2008 4:24 AM SUPERVISOR POWER REACTOR Riky Mejía MD POINT OF CARE TESTING Final Result Performing Organization Address [facility] Phone Number INTERFACE SYSTEM Refer to clinic/hospital department [facility] CLIA# [id number] [address] [place] [address] * (ABNORMAL) POC GLUCOSE (05/10/2008 12:08 PM SUPERVISOR POWER REACTOR) GLUCOSE POC 127(H) 60 - 100 mg/dL [facility] Venous blood specimen (specimen) 05/10/2008 12:08 PM SUPERVISOR POWER REACTOR 05/11/2008 4:18 AM SUPERVISOR POWER REACTOR Riky Mejía MD POINT OF CARE TESTING Final Result Performing Organization Address [facility] de Phone Number INTERFACE SYSTEM Refer to clinic/hospital department [facility] CLIA# [id number] [address] [place] [address] * (ABNORMAL) POC GLUCOSE (05/10/2008 8:31 AM SUPERVISOR POWER REACTOR) GLUCOSE POC 122(H) 60 - 100 mg/dL [facility] Venous blood specimen (specimen) 05/10/2008 8:31 AM SUPERVISOR POWER REACTOR 05/11/2008 4:18 AM SUPERVISOR POWER REACTOR Riky Mejía MD POINT OF CARE TESTING Final Result INTERFACE SYSTEM Refer to clinic/hospital department [facility] CLIA# [id number] [address] [place] [address] * (ABNORMAL) COMPREHENSIVE METABOLIC PANEL (05/10/2008 5:47 AM SUPERVISOR POWER REACTOR) GLOBULIN (CALC) 2.3(L) 2.4 - 3.9 g/dL [facility] SODIUM 141 136 - 145 mEq/L [facility] BILIRUBIN TOTAL 0.4 0.3 - 1.2 mg/dL [facility] TOTAL PROTEIN 5.0(L) 6.3 - 8.2 g/dL [facility] BUN 7 7 - 17 mg/dL [facility] AST 24 8 - 33 U/L [facility] CO2 30 22 - 32 mmol/l [facility] ALBUMIN/GLOBULIN RATIO 1.2 1.0 - 2.3 [facility] ALBUMIN 2.7(L) 3.5 - 5.0 g/dL [facility] POTASSIUM 3.3(L) 3.5 - 5.0 mEq/L [facility] ANION GAP 7(L) 9 - 20 mEq/L [facility] CALCIUM 8.0(L) 8.4 - 10.5 mg/dL [facility] CREATININE 0.4(L) 0.7 - 1.2 mg/dL [facility] ALT 10 4 - 36 IU/L [facility] GLUCOSE 99 70 - 110 mg/dL [facility] CHLORIDE 107 95 - 110 mEq/L [facility] OSMOLALITY, CALCULATED 286 275 - 295 mOsm/Kg [facility] ALKALINE PHOSPHATASE 73 25 - 100 U/L [facility] Blood specimen (specimen) 05/10/2008 5:47 AM SUPERVISOR POWER REACTOR 05/10/2008 5:52 AM SUPERVISOR POWER REACTOR Riky Mejía MD CHEMISTRY ORDERABLES Final Result INTERFACE SYSTEM Refer to clinic/hospital department [facility] CLIA# [id number] [facility] [place] [address] * (ABNORMAL) CBC WITH DIFFERENTIAL (05/10/2008 5:47 AM SUPERVISOR POWER REACTOR) LYMPHOCYTE ABSOLUTE 0.9(L) 1.2 - 4.0 K/ul [facility] MCV 96.4 84.0 - 103.0 Fl [facility] MPV 10.1 8.9 - 12.8 Fl [facility] BASOPHILS ABSOLUTE 0.0 0.0 - 0.2 K/ul [facility] BASOPHILS 0.7 0.0 - 1.0 % [facility] HEMOGLOBIN 8.3(L) 12.0 - 16.0 g/dL [facility] RDW 18.6(H) 11.0 - 14.5 % [facility] MONOCYTE ABSOLUTE 0.6 0.1 - 0.6 K/ul [facility] MONOCYTES 9.3 2.0 - 10.0 % [facility] WBC 6.1 4.5 - 11.0 K/ul [facility] MCH 29.5 27.0 - 34.0 pg [facility] NEUTROPHIL ABSOLUTE 4.3 2.0 - 8.0 K/ul [facility] NEUTROPHILS 70.5 42.2 - 75.2 % [facility] HEMATOCRIT 27.1(L) 36.0 - 46.0 % [facility] EOSINOPHILS 4.1 0.0 - 7.0 % [facility] PLATELETS 278 140 - 440 K/ul [facility] PERIPHERAL BLOOD SMEAR REVIEW Automated Diff [facility] EOSINOPHIL ABSOLUTE 0.3 0.0 - 0.7 K/ul [facility] RBC 2.81(L) 4.20 - 5.40 Mil/ul [facility] LYMPHOCYTES 15.4(L) 24.0 - 44.0 % [facility] MCHC 30.6 30.0 - 35.0 g/dL [facility] Blood specimen (specimen) 05/10/2008 5:47 AM SUPERVISOR POWER REACTOR 05/10/2008 5:52 AM SUPERVISOR POWER REACTOR us Ottoniel Vanegas MD HEMATOLOGY ORDERABLES Teresa l Result Performing Organization Address [facility] Phone Number INTERFACE SYSTEM Refer to clinic/hospital department [facility] CLIA# [id number] [address] [place] [address] * (ABNORMAL) POC GLUCOSE (05/09/2008 9:17 PM SUPERVISOR POWER REACTOR) COMMENT POC Follow Protocol [facility] GLUCOSE POC 116(H) 60 - 100 mg/dL [facility] Venous blood specimen (specimen) 05/09/2008 9:17 PM SUPERVISOR POWER REACTOR 05/10/2008 3:50 AM SUPERVISOR POWER REACTOR us Riky Mejía MD POINT OF CARE TESTING Final Result Performing Organization Address [facility] Phone Number INTERFACE SYSTEM Refer to clinic/hospital department [facility] CLIA# [id number] [address] [place] [address] * POC GLUCOSE (05/09/2008 6:31 PM SUPERVISOR POWER REACTOR) GLUCOSE POC 96 60 - 100 mg/dL [facility] Venous blood specimen (specimen) 05/09/2008 6:31 PM SUPERVISOR POWER REACTOR 05/10/2008 3:50 AM SUPERVISOR POWER REACTOR us Riky Mejía MD POINT OF CARE TESTING Final Result Performing Organization Address [facility] de Phone Number INTERFACE SYSTEM Refer to clinic/hospital department [facility] CLIA# [id number] [address] [place] [address] * (ABNORMAL) POC GLUCOSE (05/09/2008 12:20 PM SUPERVISOR POWER REACTOR) GLUCOSE POC 123(H) 60 - 100 mg/dL [facility] Venous blood specimen (specimen) 05/09/2008 12:20 PM SUPERVISOR POWER REACTOR 05/10/2008 3:50 AM SUPERVISOR POWER REACTOR Riky Mejía MD POINT OF CARE TESTING Final Result Performing Organization Address [facility] de Phone Number INTERFACE SYSTEM Refer to clinic/hospital department [facility] CLIA# [id number] [address] [place] [address] * (ABNORMAL) POC GLUCOSE (05/09/2008 8:50 AM SUPERVISOR POWER REACTOR) GLUCOSE POC 139(H) 60 - 100 mg/dL [facility] Venous blood specimen (specimen) 05/09/2008 8:50 AM SUPERVISOR POWER REACTOR 05/10/2008 3:50 AM SUPERVISOR POWER REACTOR Riky Mejía MD POINT OF CARE TESTING Final Result Performing Organization Address [facility] de Phone Number INTERFACE SYSTEM Refer to clinic/hospital department [facility] CLIA# [id number] [address] [place] [address] * (ABNORMAL) POC GLUCOSE (05/08/2008 8:06 PM CDT) GLUCOSE POC 115(H) 60 - 100 mg/dL [facility] COMMENT POC Recheck result [facility] Venous blood specimen (specimen) 05/08/2008 8:06 PM CDT 05/10/2008 7:16 AM SUPERVISOR POWER REACTOR Riky Mejía MD POINT OF CARE TESTING Final Result Performing Organization Address [facility] de Phone Number INTERFACE SYSTEM Refer to clinic/hospital department [facility] CLIA# [id number] [address] [place] [address] * (ABNORMAL) POC GLUCOSE (05/08/2008 6:26 PM CDT) COMMENT POC Recheck result [facility] GLUCOSE POC 119(H) 60 - 100 mg/dL [facility] Venous blood specimen (specimen) 05/08/2008 6:26 PM CDT 05/10/2008 7:16 AM SUPERVISOR POWER REACTOR Riky Mejía MD POINT OF CARE TESTING Final Result Performing Organization Address [facility] de Phone Number INTERFACE SYSTEM Refer to clinic/hospital department [facility] CLIA# [id number] [address] [place] [address] * (ABNORMAL) POC GLUCOSE (05/08/2008 12:27 PM CDT) [facility] GLUCOSE POC 130(H) 60 - 100 mg/dL [facility] Venous blood specimen (specimen) 05/08/2008 12:27 PM CDT 05/09/2008 1:13 AM CDT Riky Mejía MD POINT OF CARE TESTING Final Result Performing Organization Address [facility] Phone Number INTERFACE SYSTEM Refer to clinic/hospital department [facility] CLIA# [id number] [address] [place] [address] * (ABNORMAL) CBC WITH DIFFERENTIAL (05/08/2008 7:35 AM CDT) HEMOGLOBIN 8.0(L) 12.0 - 16.0 g/dL [facility] MONOCYTES 8.7 2.0 - 10.0 % [facility] RDW 18.5(H) 11.0 - 14.5 % [facility] MONOCYTE ABSOLUTE 0.7(H) 0.1 - 0.6 K/ul [facility] WBC 7.5 4.5 - 11.0 K/ul [facility] NEUTROPHILS 73.3 42.2 - 75.2 % [facility] MCH 29.7 27.0 - 34.0 pg [facility] NEUTROPHIL ABSOLUTE 5.5 2.0 - 8.0 K/ul [facility] HEMATOCRIT 25.8(L) 36.0 - 46.0 % [facility] PLATELETS 219 140 - 440 K/ul [facility] EOSINOPHIL ABSOLUTE 0.3 0.0 - 0.7 K/ul [facility] EOSINOPHILS 4.3 0.0 - 7.0 % [facility] RBC 2.69(L) 4.20 - 5.40 Mil/ul [facility] MCHC 31.0 30.0 - 35.0 g/dL [facility] LYMPHOCYTE ABSOLUTE 0.9(L) 1.2 - 4.0 K/ul [facility] LYMPHOCYTES 12.6(L) 24.0 - 44.0 % [facility] MCV 95.9 84.0 - 103.0 Fl [facility] BASOPHILS 1.1(H) 0.0 - 1.0 % [facility] MPV 10.6 8.9 - 12.8 Fl [facility] BASOPHILS ABSOLUTE 0.1 0.0 - 0.2 K/ul [facility] Blood specimen (specimen) 05/08/2008 7:35 AM CDT 05/08/2008 7:48 AM CDT us Riky Mejía MD HEMATOLOGY ORDERABLES Final Result INTERFACE SYSTEM Refer to clinic/hospital department [facility] CLIA# [id number] [facility] [place] [address] * (ABNORMAL) POC GLUCOSE (05/08/2008 5:15 AM CDT) GLUCOSE POC 132(H) 60 - 100 mg/dL [facility] Venous blood specimen (specimen) 05/08/2008 5:15 AM CDT 05/09/2008 1:13 AM CDT Riky Mejía MD POINT OF CARE TESTING Final Result Performing Organization Address [facility] de Phone Number INTERFACE SYSTEM Refer to clinic/hospital department [facility] CLIA# [id number] [address] [place] [address] * (ABNORMAL) POC GLUCOSE (05/07/2008 8:43 PM CDT) GLUCOSE POC 137(H) 60 - 100 mg/dL [facility] COMMENT POC Recheck result [facility] Venous blood specimen (specimen) 05/07/2008 8:43 PM CDT 05/10/2008 7:16 AM SUPERVISOR POWER REACTOR Riky Mejía MD POINT OF CARE TESTING Final Result Performing Organization Address [facility] de Phone Number INTERFACE SYSTEM Refer to clinic/hospital department [facility] CLIA# [id number] [address] [place] [address] * (ABNORMAL) POC GLUCOSE (05/07/2008 5:13 PM CDT) GLUCOSE POC 137(H) 60 - 100 mg/dL [facility] COMMENT POC Recheck result [facility] Venous blood specimen (specimen) 05/07/2008 5:13 PM CDT 05/10/2008 7:16 AM SUPERVISOR POWER REACTOR Riky Mejía MD POINT OF CARE TESTING Final Result Performing Organization Address [facility] de Phone Number INTERFACE SYSTEM Refer to clinic/hospital department [facility] CLIA# [id number] [address] [place] [address] * (ABNORMAL) POC GLUCOSE (05/07/2008 12:06 PM CDT) COMMENT POC Notify RN [facility] GLUCOSE POC 159(H) 60 - 100 mg/dL [facility] Venous blood specimen (specimen) 05/07/2008 12:06 PM CDT 05/08/2008 3:26 AM CDT Riky Mejía MD POINT OF CARE TESTING Final Result Performing Organization Address [facility] de Phone Number INTERFACE SYSTEM Refer to clinic/hospital department [facility] CLIA# [id number] [address] [place] [address] * (ABNORMAL) POC GLUCOSE (05/07/2008 8:20 AM CDT) GLUCOSE POC 135(H) 60 - 100 mg/dL [facility] COMMENT POC Notify R.N [facility] Venous blood specimen (specimen) 05/07/2008 8:20 AM CDT 05/08/2008 3:26 AM CDT Riky Mejía MD POINT OF CARE TESTING Final Result Performing Organization Address [facility] de Phone Number INTERFACE SYSTEM Refer to clinic/hospital department [facility] CLIA# [id number] [address] [place] [address] * (ABNORMAL) POC GLUCOSE (05/07/2008 5:22 AM CDT) GLUCOSE POC 133(H) 60 - 100 mg/dL [facility] Venous blood specimen (specimen) 05/07/2008 5:22 AM CDT 05/08/2008 3:25 AM CDT us Riky Mejía MD POINT OF CARE TESTING Final Result Performing Organization Address [facility] de Phone Number INTERFACE SYSTEM Refer to clinic/hospital department [facility] CLIA# [id number] [address] [place] [address] * (ABNORMAL) POC GLUCOSE (05/06/2008 8:39 PM CDT) GLUCOSE POC 116(H) 60 - 100 mg/dL [facility] COMMENT POC Notify R.N [facility] Venous blood specimen (specimen) 05/06/2008 8:39 PM CDT 05/07/2008 3:27 AM CDT us Riky Mejía MD POINT OF CARE TESTING Final Result INTERFACE SYSTEM Refer to clinic/hospital department [facility] CLIA# [id number] [address] [place] [address] * CT ABDOMEN PELVIS W CONTRAST (05/06/2008 [...] GLUCOSE POC 126(H) 60 - 100 mg/dL [facility] Venous blood specimen (specimen) 05/06/2008 5:38 PM CDT 05/07/2008 3:27 AM CDT Riky Mejía MD POINT OF CARE TESTING Final Result Performing Organization Address [facility] de Phone Number INTERFACE SYSTEM Refer to clinic/hospital department [facility] CLIA# [id number] [address] [place] [address] * (ABNORMAL) POC GLUCOSE (05/06/2008 12:55 PM CDT) GLUCOSE POC 120(H) 60 - 100 mg/dL [facility] Venous blood specimen (specimen) 05/06/2008 12:55 PM CDT 05/07/2008 3:27 AM CDT Riky Mejía MD POINT OF CARE TESTING Final Result Performing Organization Address [facility] Phone Number INTERFACE SYSTEM Refer to clinic/hospital department [facility] CLIA# [id number] [address] [place] [address] * (ABNORMAL) POC GLUCOSE (05/06/2008 8:03 AM CDT) GLUCOSE POC 134(H) 60 - 100 mg/dL [facility] Venous blood specimen (specimen) 05/06/2008 8:03 AM CDT 05/07/2008 3:24 AM CDT Riky Mejía MD POINT OF CARE TESTING Final Result Performing Organization Address [facility] de Phone Number INTERFACE SYSTEM Refer to clinic/hospital [facility] CLIA# [id number] [address] [place] [address] * (ABNORMAL) BASIC METABOLIC PANEL (05/06/2008 5:34 AM CDT) CREATININE 0.5(L) 0.7 - 1.2 mg/dL [facility] CALCIUM 8.1(L) 8.4 - 10.5 mg/dL [facility] GLUCOSE 111(H) 70 - 110 mg/dL [facility] CHLORIDE 107 95 - 110 mEq/L [facility] ANION GAP 11 9 - 20 mEq/L [facility] SODIUM 137 136 - 145 mEq/L [facility] BUN 10 7 - 17 mg/dL [facility] CO2 23 22 - 32 mmol/l [facility] POTASSIUM 3.7 3.5 - 5.0 mEq/L [facility] OSMOLALITY, CALCULATED 281 275 - 295 mOsm/Kg [facility] Blood specimen (specimen) 05/06/2008 5:34 AM CDT 05/06/2008 5:34 AM CDT us Riky Mejía MD CHEMISTRY ORDERABLES Final Result INTERFACE SYSTEM Refer to clinic/hospital department [facility] CLIA# [id number] [address] [place] [address] * (ABNORMAL) CBC WITH DIFFERENTIAL (05/06/2008 5:34 AM CDT) LYMPHOCYTES 11.5(L) 24.0 - 44.0 % [facility] MCHC 30.9 30.0 - 35.0 g/dL [facility] LYMPHOCYTE ABSOLUTE 0.9(L) 1.2 - 4.0 K/ul [facility] MCV 96.3 84.0 - 103.0 Fl [facility] MPV 11.1 8.9 - 12.8 Fl [facility] BASOPHILS ABSOLUTE 0.0 0.0 - 0.2 K/ul [facility] BASOPHILS 0.4 0.0 - 1.0 % [facility] HEMOGLOBIN 8.0(L) 12.0 - 16.0 g/dL [facility] RDW 18.5(H) 11.0 - 14.5 % [facility] MONOCYTE ABSOLUTE 0.7(H) 0.1 - 0.6 K/ul [facility] MONOCYTES 9.2 2.0 - 10.0 % [facility] WBC 7.7 4.5 - 11.0 K/ul [facility] MCH 29.7 27.0 - 34.0 pg [facility] NEUTROPHIL ABSOLUTE 5.8 2.0 - 8.0 K/ul [facility] NEUTROPHILS 75.3(H) 42.2 - 75.2 % [facility] HEMATOCRIT 25.9(L) 36.0 - 46.0 % [facility] EOSINOPHILS 3.6 0.0 - 7.0 % [facility] PLATELETS 203 140 - 440 K/ul [facility] PERIPHERAL BLOOD SMEAR REVIEW Automated Diff [facility] EOSINOPHIL ABSOLUTE 0.3 0.0 - 0.7 K/ul [facility] RBC 2.69(L) 4.20 - 5.40 Mil/ul [facility] Blood specimen (specimen) 05/06/2008 5:34 AM CDT 05/06/2008 5:34 AM CDT us Riky Mejía MD HEMATOLOGY ORDERABLES Final Result Performing Organization Address [facility] de Phone Number INTERFACE SYSTEM Refer to clinic/hospital department [facility] CLIA# [id number] [address] [place] [address] * (ABNORMAL) POC GLUCOSE (05/05/2008 8:26 PM CDT) GLUCOSE POC 157(H) 60 - 100 mg/dL [facility] Venous blood specimen (specimen) 05/05/2008 8:26 PM CDT 05/06/2008 3:31 AM CDT us Riky Mejía MD POINT OF CARE TESTING Final Result Performing Organization Address [facility] de Phone Number INTERFACE SYSTEM Refer to clinic/hospital department [facility] CLIA# [id number] [address] [place] [address] * (ABNORMAL) POC GLUCOSE (05/05/2008 4:57 PM CDT) GLUCOSE POC 124(H) 60 - 100 mg/dL [facility] Venous blood specimen (specimen) 05/05/2008 4:57 PM CDT 05/06/2008 3:31 AM CDT Riky Mejía MD POINT OF CARE TESTING Final Result Performing Organization Address [facility] de Phone Number INTERFACE SYSTEM Refer to clinic/hospital department [facility] CLIA# [id number] [address] [place] [address] * (ABNORMAL) POC GLUCOSE (05/05/2008 11:30 AM CDT) GLUCOSE POC 127(H) 60 - 100 mg/dL [facility] Venous blood specimen (specimen) 05/05/2008 11:30 AM CDT 05/06/2008 3:31 AM CDT Riky Mejía MD POINT OF CARE TESTING Final Result Performing Organization Address [facility] de Phone Number INTERFACE SYSTEM Refer to clinic/hospital department [facility] CLIA# [id number] [address] [place] [address] * (ABNORMAL) POC GLUCOSE (05/05/2008 8:05 AM CDT) GLUCOSE POC 137(H) 60 - 100 mg/dL [facility] Venous blood specimen (specimen) 05/05/2008 8:05 AM CDT 05/06/2008 3:31 AM CDT Riky Mejía MD POINT OF CARE TESTING Final Result Performing Organization Address City/[facility] de Phone Number INTERFACE SYSTEM Refer to clinic/hospital department [facility] CLIA# [id number] [address] [place] [address] * (ABNORMAL) POC GLUCOSE (05/04/2008 9:56 PM CDT) GLUCOSE POC 115(H) 60 - 100 mg/dL [facility] Venous blood specimen (specimen) 05/04/2008 9:56 PM CDT 05/05/2008 2:27 AM CDT Riky Mejía MD POINT OF CARE TESTING Final Result Performing Organization Address [facility] de Phone Number INTERFACE SYSTEM Refer to clinic/hospital department [facility] CLIA# [id number] [address] [place] [address] * (ABNORMAL) POC GLUCOSE (05/04/2008 5:34 PM CDT) GLUCOSE POC 120(H) 60 - 100 mg/dL [facility] Venous blood specimen (specimen) 05/04/2008 5:34 PM CDT 05/05/2008 5:02 AM CDT Riky Mejía MD POINT OF CARE TESTING Final Result Performing Organization Address [facility] de Phone Number INTERFACE SYSTEM Refer to clinic/hospital department [facility] CLIA# [id number] [address] [place] [address] * (ABNORMAL) POC GLUCOSE (05/04/2008 11:15 AM CDT) GLUCOSE POC 133(H) 60 - 100 mg/dL [facility] Venous blood specimen (specimen) 05/04/2008 11:15 AM CDT 05/05/2008 2:27 AM CDT Riky Mejía MD POINT OF CARE TESTING Final Result Performing Organization Address City/[facility] Co de Phone Number INTERFACE SYSTEM Refer to clinic/hospital department [facility] CLIA# [id number] [address] [place] [address] * URINE CULTURE (05/04/2008 9:06 AM CDT) FINAL REPORT No growth INTERFA CE SYSTEM 05/04/2008 9:06 AM CDT 05/04/2008 9:06 AM CDT us Riky Mejía MD MICROBIOLOGY - GENERAL [facility] Final Result Performing Organization Address [facility] Phone Number INTERFACE SYSTEM Refer to clinic/hospital department * (ABNORMAL) POC GLUCOSE (05/04/2008 7:37 AM CDT) GLUCOSE POC 139(H) 60 - 100 mg/dL [facility] Venous blood specimen (specimen) 05/04/2008 7:37 AM CDT 05/05/2008 2:27 AM CDT us Riky Mejía MD POINT OF CARE TESTING Final Result Performing Organization Address [facility] Phone Number INTERFACE SYSTEM Refer to clinic/hospital department [facility] CLIA# [id number] [address] [place], [place] [address] * (ABNORMAL) URINALYSIS MICROSCOPY ONLY (05/04/2008 2:12 AM CDT) HYALINE CAST None Seen 0 - 2 [facility] WBC URINE 0-2 0 - 2 [facility] BACTERIA UA Small(A) None Seen [facility] RBC UA 6-10(A) 0 - 2 [facility] Urine specimen (specimen) 05/04/2008 2:12 AM CDT 05/04/2008 2:12 AM CDT Narrative INTERFACE SYSTEM - 05/04/2008 2:30 AM CDT Microscopic ordered by policy us Riky Mejía MD URINE ORDERABLES Final Resu lt Performing Organization Address [facility] Phone Number INTERFACE SYSTEM Refer to clinic/hospital department [facility] CLIA# [id number] [address] [place] [address] * ICTOTEST (05/04/2008 2:12 AM CDT) Pathologist [facility] ICTO Negative Negative [facility] Urine specimen (specimen) 05/04/2008 2:12 AM CDT 05/04/2008 2:12 AM CDT Narrative INTERFACE SYSTEM - 05/04/2008 2:30 AM CDT Bili verified by ictotest us Riky Mejía MD URINE ORDERABLES Final Resu lt Performing Organization Address [facility] de Phone Number INTERFACE SYSTEM Refer to clinic/hospital department [facility] CLIA# [id number] [address] [place] [address] * (ABNORMAL) URINALYSIS (05/04/2008 2:12 AM CDT) Pathologist [facility] LEUKOCYTE ESTERASE UA NEGATIVE NEGATIVE [facility] KETONES UA Trace(A) NEGATIVE [facility] COLOR UA Yellow Straw [facility] PROTEIN UA 100 mg/dl(A) NEGATIVE [facility] SPECIFIC GRAVITY UA 1.010 <=1.005 [facility] NITRITE UA NEGATIVE NEGATIVE [facility] UROBILINOGEN UA 0.2 0.2 [facility] CLARITY UA Clear Clear [facility] GLUCOSE UA NEGATIVE NEGATIVE [facility] MICRO EXAM Yes(A) No [facility] PH UA 6.5 5.0 - 9.0 [facility] BLOOD UA MODERATE(A) NEGATIVE [facility] Urine specimen (specimen) 05/04/2008 2:12 AM CDT 05/04/2008 2:12 AM CDT us Riky Mejía MD URINE ORDERABLES Final Resu lt Performing Organization Address [facility] de Phone Number INTERFACE SYSTEM Refer to clinic/hospital department [facility] CLIA# [id number] [address] [place] [address] * BLOOD CULTURE (05/04/2008 2:02 AM CDT) Pathologist [facility] FINAL REPORT No growth INTERFA CE SYSTEM Blood specimen (specimen) 05/04/2008 2:02 AM CDT 05/04/2008 3:36 AM CDT us Riky Mejía MD MICROBIOLOGY - GENERAL [facility] Final Result Performing Organization Address [facility] Phone Number INTERFACE SYSTEM Refer to clinic/hospital department * (ABNORMAL) BASIC METABOLIC PANEL (05/04/2008 1:55 AM CDT) Pathologist [facility] OSMOLALITY, CALCULATED 282 275 - 295 mOsm/Kg [facility] POTASSIUM 4.3 3.5 - 5.0 mEq/L [facility] CREATININE 0.6(L) 0.7 - 1.2 mg/dL [facility] CALCIUM 9.0 8.4 - 10.5 mg/dL [facility] GLUCOSE 120(H) 70 - 110 mg/dL [facility] CHLORIDE 108 95 - 110 mEq/L [facility] SODIUM 135(L) 136 - 145 mEq/L [facility] ANION GAP 10 9 - 20 mEq/L [facility] BUN 17 7 - 17 mg/dL [facility] CO2 21(L) 22 - 32 mmol/l [facility] Blood specimen (specimen) 05/04/2008 1:55 AM CDT 05/04/2008 2:49 AM CDT us Riky Mejía MD CHEMISTRY ORDERABLES Final Result Performing Organization Address [facility] de Phone Number INTERFACE SYSTEM Refer to clinic/hospital department [facility] CLIA# [id number] [address] [place] [address] * (ABNORMAL) CBC WITH DIFFERENTIAL (05/04/2008 1:55 AM CDT) PERIPHERAL BLOOD SMEAR REVIEW Automated Diff [facility] EOSINOPHIL ABSOLUTE 0.2 0.0 - 0.7 K/ul [facility] RBC 2.86(L) 4.20 - 5.40 Mil/ul [facility] MCHC 31.6 30.0 - 35.0 g/dL [facility] LYMPHOCYTES 11.5(L) 24.0 - 44.0 % [facility] LYMPHOCYTE ABSOLUTE 1.0(L) 1.2 - 4.0 K/ul [facility] MCV 96.2 84.0 - 103.0 Fl [facility] MPV 11.1 8.9 - 12.8 Fl [facility] BASOPHILS ABSOLUTE 0.0 0.0 - 0.2 K/ul [facility] BASOPHILS 0.4 0.0 - 1.0 % [facility] HEMOGLOBIN 8.7(L) 12.0 - 16.0 g/dL [facility] RDW 18.6(H) 11.0 - 14.5 % [facility] MONOCYTE ABSOLUTE 1.0(H) 0.1 - 0.6 K/ul [facility] MONOCYTES 10.9(H) 2.0 - 10.0 % [facility] WBC 8.9 4.5 - 11.0 K/ul [facility] NEUTROPHILS 75.1 42.2 - 75.2 % [facility] MCH 30.4 27.0 - 34.0 pg [facility] NEUTROPHIL ABSOLUTE 6.7 2.0 - 8.0 K/ul [facility] HEMATOCRIT 27.5(L) 36.0 - 46.0 % [facility] PLATELETS 180 140 - 440 K/ul [facility] EOSINOPHILS 2.1 0.0 - 7.0 % [facility] Blood specimen (specimen) 05/04/2008 1:55 AM CDT 05/04/2008 2:25 AM CDT us Riky Mejía MD HEMATOLOGY ORDERABLES Final Result Performing Organization Address [facility] de Phone Number INTERFACE SYSTEM Refer to clinic/hospital department [facility] CLIA# [id number] [address] [place] [address] * BLOOD CULTURE (05/04/2008 1:55 AM CDT) FINAL REPORT No growth INTERFA CE SYSTEM REPORT/SPECIM EN COMMENT Specimen processed with suboptimal blood volume. Recommended adult blood volume is 8-10 mL per bottle. INTERFACE SYSTEM Blood specimen (specimen) 05/04/2008 1:55 AM CDT 05/04/2008 3:36 AM CDT us Riky Mejía MD MICROBIOLOGY - GENERAL [facility] Final Result Performing Organization Address [facility] Phone Number INTERFACE SYSTEM Refer to clinic/hospital department * (ABNORMAL) POC GLUCOSE (05/03/2008 9:24 PM CDT) GLUCOSE POC 137(H) 60 - 100 mg/dL [facility] Venous blood specimen (specimen) 05/03/2008 9:24 PM CDT 05/04/2008 4:27 AM CDT us Riky Mejía MD POINT OF CARE TESTING Final Result Performing Organization Address [facility] Phone Number INTERFACE SYSTEM Refer to clinic/hospital department [facility] CLIA# [id number] [facility] [place] [address] * (ABNORMAL) POC GLUCOSE (05/03/2008 4:35 PM CDT) GLUCOSE POC 128(H) 60 - 100 mg/dL [facility] Venous blood specimen (specimen) 05/03/2008 4:35 PM CDT 05/04/2008 4:27 AM CDT us Riky Mejía MD POINT OF CARE TESTING Final Result INTERFACE SYSTEM Refer to clinic/hospital department [facility] CLIA# [id number] [place] [address] * CT ABDOMEN PELVIS W CONTRAST (05/03/2008 [...] mm volumetric acquisition with 125 mL intravenous [id number]. Comparison: None. Findings: Consolidative atelectasis versus airspace [...] APTT (05/03/2008 9:00 AM CDT) INR 1.3 [facility] Comment: Expected Values for INR: DVT/PE Goal INR 2.5; range 2.0 - 3.0 Valve Replacement Tissue Goal INR 2.5; range 2.0 - 3.0 Mechanical Goal INR 3.0; range 2.5 - 3.5 POST-ID Goal INR 2.5; range 2.0 - 3.0 or Goal 3.0; range 2.5 - 3.5 Atrial Fibrillation Goal INR 2.5; range 2.0 - 3.0 Ischemic Stroke Goal INR 2.5; range 2.0 - 3.0 For additional information see Guidelines for Anticoagulation available from the pharmacy [facility]. [phone] PTT 38.5(H) 22.5 - 36.5 Secs [facility] Comment: Therapeutic Range: Hi-level PE/DVT heparin protocol 80.1 -95.0 sec Lo-level PE/DVT heparin protocol 67.1 - 80.0 sec Cardiac Heparin Protocol 67.1 - 85.0 sec Neuro Heparin Protocol 67.1 - 80.0 sec As of 09/25/2007 note change in APTT Normal Range. PROTIME 18.0(H) 12.8 - 15.8 Secs [facility] Comment:As of 2007 not e change in normal range. Blood specimen (specimen) 05/03/2008 9:00 AM CDT 05/03/2008 9:10 AM CDT Narrative INTERFACE SYSTEM - 05/03/2008 9:23 AM CDT use blood in the lab us Riky Mejía MD HEMATOLOGY ORDERABLES Edite d INTERFACE SYSTEM Refer to clinic/hospital department [facility] CLIA# [id number] [address] [place] [address] * (ABNORMAL) BASIC METABOLIC PANEL (05/03/2008 5:39 AM CDT) GLUCOSE 122(H) 70 - 110 mg/dL [facility] CHLORIDE 106 95 - 110 mEq/L [facility] SODIUM 135(L) 136 - 145 mEq/L [facility] ANION GAP 14 9 - 20 mEq/L [facility] BUN 20(H) 7 - 17 mg/dL [facility] CO2 20(L) 22 - 32 mmol/l [facility] OSMOLALITY, CALCULATED 284 275 - 295 mOsm/Kg [facility] POTASSIUM 5.0 3.5 - 5.0 mEq/L [facility] CREATININE 0.6(L) 0.7 - 1.2 mg/dL [facility] CALCIUM 9.1 8.4 - 10.5 mg/dL [facility] Blood specimen (specimen) 05/03/2008 5:39 AM CDT 05/03/2008 6:15 AM CDT us Riky Mejía MD CHEMISTRY ORDERABLES Final Result INTERFACE SYSTEM Refer to clinic/hospital department [facility] CLIA# [id number] [address] [place] [address] * (ABNORMAL) CBC WITH DIFFERENTIAL (05/03/2008 5:39 AM CDT) HEMATOCRIT 28.4(L) 36.0 - 46.0 % [facility] LYMPHOCYTE ABSOLUTE 0.6(L) 1.2 - 4.0 K/ul [facility] LYMPHOCYTES 5.9(L) 24.0 - 44.0 % [facility] MCHC 31.3 30.0 - 35.0 g/dL [facility] BASOPHILS 0.2 0.0 - 1.0 % [facility] MPV 10.9 8.9 - 12.8 Fl [facility] WBC 10.2 4.5 - 11.0 K/ul [facility] BASOPHILS ABSOLUTE 0.0 0.0 - 0.2 K/ul [facility] PERIPHERAL BLOOD SMEAR REVIEW Automated Diff [facility] MCV 96.3 84.0 - 103.0 Fl [facility] MONOCYTES 9.9 2.0 - 10.0 % [facility] RDW 18.3(H) 11.0 - 14.5 % [facility] MONOCYTE ABSOLUTE 1.0(H) 0.1 - 0.6 K/ul [facility] RBC 2.95(L) 4.20 - 5.40 Mil/ul [facility] HEMOGLOBIN 8.9(L) 12.0 - 16.0 g/dL [facility] NEUTROPHILS 82.5(H) 42.2 - 75.2 % [facility] NEUTROPHIL ABSOLUTE 8.5(H) 2.0 - 8.0 K/ul [facility] MCH 30.2 27.0 - 34.0 pg [facility] PLATELETS 163 140 - 440 K/ul [facility] EOSINOPHIL ABSOLUTE 0.2 0.0 - 0.7 K/ul [facility] EOSINOPHILS 1.5 0.0 - 7.0 % [facility] Blood specimen (specimen) 05/03/2008 5:39 AM CDT 05/03/2008 6:15 AM CDT Riky Mejía MD HEMATOLOGY ORDERABLES Final Result Performing Organization Address City/[facility]/ZIP Co de Phone Number INTERFACE SYSTEM Refer to clinic/hospital department [facility] CLIA# [id number] [address] [place] [address] * URINE CULTURE (05/02/2008 10:05 PM CDT) FINAL REPORT No growth INTERFA CE SYSTEM 05/02/2008 10:0 5 PM CDT 05/02/2008 10:05 PM CDT Riky Mejía MD MICROBIOLOGY - [facility] Final Result Performing Organization Address [facility] de Phone Number INTERFACE SYSTEM Refer to clinic/hospital department * (ABNORMAL) URINALYSIS MICROSCOPY ONLY (05/02/2008 9:19 PM CDT) BACTERIA UA Few(A) None Seen [facility] WBC URINE 3-5(A) 0 - 2 [facility] RBC UA 0-2 0 - 2 [facility] HYALINE CAST 0-2 0 - 2 [facility] Urine specimen (specimen) 05/02/2008 9:19 PM CDT 05/02/2008 9:19 PM CDT Narrative INTERFACE SYSTEM - 05/02/2008 9:43 PM CDT Microscopic ordered by policy Riky Mejía MD URINE ORDERABLES Final Resu lt Performing Organization Address [facility] de Phone Number INTERFACE SYSTEM Refer to clinic/hospital department [facility] CLIA# [id number] [address] [place] [address] * (ABNORMAL) ICTOTEST (05/02/2008 9:19 PM CDT) ICTO Positive(A) Negative [facility] Urine specimen (specimen) 05/02/2008 9:19 PM CDT 05/02/2008 9:19 PM CDT Narrative INTERFACE SYSTEM - 05/02/2008 9:43 PM CDT Bili verified by ictotest us Riky Mejía MD URINE ORDERABLES Final Resu lt Performing Organization Address [facility] Phone Number INTERFACE SYSTEM Refer to clinic/hospital department [facility] CLIA# [id number] [address] [place] [address] * (ABNORMAL) URINALYSIS (05/02/2008 9:19 PM CDT) CLARITY UA Clear Clear [facility] MICRO EXAM Yes(A) No [facility] GLUCOSE UA NEGATIVE NEGATIVE [facility] PH UA 5.5 5.0 - 9.0 [facility] BLOOD UA NEGATIVE NEGATIVE [facility] LEUKOCYTE ESTERASE UA NEGATIVE NEGATIVE [facility] KETONES UA Trace(A) NEGATIVE [facility] COLOR UA Yellow Straw [facility] PROTEIN UA 100 mg/dl(A) NEGATIVE [facility] SPECIFIC GRAVITY UA >=1.030(A) <=1.005 [facility] NITRITE UA POSITIVE(A) NEGATIVE [facility] UROBILINOGEN UA 0.2 0.2 [facility] Urine specimen (specimen) 05/02/2008 9:19 PM CDT 05/02/2008 9:19 PM CDT Riky Mejía MD URINE ORDERABLES Final Resu lt Performing Organization Address [facility] Phone Number INTERFACE SYSTEM Refer to clinic/hospital department [facility] CLIA# [id number] [address] [place] [address] * (ABNORMAL) BASIC METABOLIC PANEL (05/02/2008 6:50 PM CDT) BUN 22(H) 7 - 17 mg/dL [facility] CO2 23 22 - 32 mmol/l [facility] POTASSIUM 5.3(H) 3.5 - 5.0 mEq/L [facility] Comment: Specimen slightly hemolyzed OSMOLALITY, CALCULATED 278 275 - 295 mOsm/Kg [facility] CREATININE 0.7 0.7 - 1.2 mg/dL [facility] CALCIUM 9.2 8.4 - 10.5 mg/dL [facility] GLUCOSE 124(H) 70 - 110 mg/dL [facility] CHLORIDE 101 95 - 110 mEq/L [facility] ANION GAP 12 9 - 20 mEq/L [facility] SODIUM 131(L) 136 - 145 mEq/L [facility] Blood specimen (specimen) 05/02/2008 6:50 PM CDT 05/02/2008 7:01 PM CDT us Riky Mejía MD CHEMISTRY ORDERABLES Final Result Performing Organization Address [facility] de Phone Number INTERFACE SYSTEM Refer to clinic/hospital department [facility] CLIA# [id number] [address] [place] [address] * (ABNORMAL) BASIC METABOLIC PANEL (05/02/2008 8:38 AM CDT) OSMOLALITY, CALCULATED 280 275 - 295 mOsm/Kg [facility] CREATININE 0.8 0.7 - 1.2 mg/dL [facility] CALCIUM 9.5 8.4 - 10.5 mg/dL [facility] GLUCOSE 123(H) 70 - 110 mg/dL [facility] CHLORIDE 100 95 - 110 mEq/L [facility] ANION GAP 13 9 - 20 mEq/L [facility] SODIUM 131(L) 136 - 145 mEq/L [facility] BUN 26(H) 7 - 17 mg/dL [facility] CO2 24 22 - 32 mmol/l [facility] POTASSIUM 5.5(H) 3.5 - 5.0 mEq/L [facility] Blood specimen (specimen) 05/02/2008 8:38 AM CDT 05/02/2008 8:43 AM CDT Riky Mejía MD CHEMISTRY ORDERABLES Final Result INTERFACE SYSTEM Refer to clinic/hospital department [facility] CLIA# [id number] [address] [place] [address] * (ABNORMAL) CBC WITH DIFFERENTIAL (05/02/2008 6:55 AM CDT) LYMPHOCYTE ABSOLUTE 1.4 1.2 - 4.0 K/ul [facility] MCV 95.8 84.0 - 103.0 Fl [facility] MPV 11.2 8.9 - 12.8 Fl [facility] BASOPHILS ABSOLUTE 0.1 0.0 - 0.2 K/ul [facility] BASOPHILS 0.4 0.0 - 1.0 % [facility] HEMOGLOBIN 10.8(L) 12.0 - 16.0 g/dL [facility] RDW 18.3(H) 11.0 - 14.5 % [facility] MONOCYTE ABSOLUTE 1.5(H) 0.1 - 0.6 K/ul [facility] MONOCYTES 11.3(H) 2.0 - 10.0 % [facility] WBC 13.0(H) 4.5 - 11.0 K/ul [facility] MCH 30.3 27.0 - 34.0 pg [facility] NEUTROPHIL ABSOLUTE 10.0(H) 2.0 - 8.0 K/ul [facility] NEUTROPHILS 76.9(H) 42.2 - 75.2 % [facility] HEMATOCRIT 34.2(L) 36.0 - 46.0 % [facility] EOSINOPHILS 0.8 0.0 - 7.0 % [facility] PLATELETS 164 140 - 440 K/ul [facility] PERIPHERAL BLOOD SMEAR REVIEW Automated Diff [facility] EOSINOPHIL ABSOLUTE 0.1 0.0 - 0.7 K/ul [facility] RBC 3.57(L) 4.20 - 5.40 Mil/ul [facility] LYMPHOCYTES 10.6(L) 24.0 - 44.0 % [facility] MCHC 31.6 30.0 - 35.0 g/dL [facility] Blood specimen (specimen) 05/02/2008 6:55 AM CDT 05/02/2008 7:02 AM CDT us Riky Mejía MD HEMATOLOGY ORDERABLES Final Result Performing Organization Address City/State/[facility] Co de Phone Number INTERFACE SYSTEM Refer to clinic/hospital department [facility] CLIA# [id number] [address] [place] [address] documented in this encounter Visit Diagnoses Diagnosis [...] unspecified Debility, unspecified Pressure ulcer, stage II(707.22) ([facility]/HCC) Pressure ulcer, stage II Perforation of intestine (CMS/HCC) Perforation of intestine Unspecified procedure as the cause of abnormal reaction of patient, or of later complication, without mention of misadventure at time of procedure Peritoneal abscess (CMS/HCC) Peritoneal abscess Unspecified protein-calorie malnutrition Pressure ulcer, stage IV(707.24) (CMS/HCC) Pressure ulcer, stage IV Pressure ulcer, upper back(707.02) Pressure ulcer, upper back Pressure ulcer, stage III(707.23) ([facility]/HCC) Pressure ulcer, stage III Removal of other organ (partial) (total) causing abnormal patient reaction, or later complication, without mention of misadventure at time of operation documented in this encounter Additional Health Concerns Infection Onset Date Last Indicated Resolved Time MRSA Comment:Kapil 10/26/15 10/27/2015 10/27/2015 documented as of this encounter Care Teams Supply Chain Buyer Relationship Specialty Start Date End Date Jose Bowers MD [address] [place] [id number] PCP - General 12/31/05 documented as of this encounter
--- OUTSIDE RECORDS SUMMARY | 2025-03-04 15:15 | XMS_ITS | Encounter Summary ---
Author Organization [facility] Address [address] [place] [address] Care Team Providers Care Fingerer Name Role Phone Jose Bowers MD Primary [...] on file Legal Sex Female 6:28 AM [employer] Gender Identity Not on file Sexual Orientation [...] GLUCOSE POC 117(H) 60 - 100 mg/dL [facility] Venous blood specimen (specimen) 04/28/2008 12:22 PM CDT 04/29/2008 1:49 AM CDT us Riky Mejía MD POINT OF CARE TESTING Final Result Performing Organization Address [facility] de Phone Number INTERFACE SYSTEM Refer to clinic/hospital department [facility] CLIA# [id number] [address] [place] [address] * (ABNORMAL) POC GLUCOSE (04/28/2008 6:07 AM CDT) GLUCOSE POC 132(H) 60 - 100 mg/dL [facility] Venous blood specimen (specimen) 04/28/2008 6:07 AM CDT 04/29/2008 1:56 AM CDT us Riky Mejía MD POINT OF CARE TESTING Final Result Performing Organization Address [facility] Phone Number INTERFACE SYSTEM Refer to clinic/hospital department [facility] CLIA# [id number] Formerly [facility] [place] [address] * (ABNORMAL) BASIC METABOLIC PANEL (04/28/2008 5:15 AM CDT) ANION GAP 10 9 - 20 mEq/L [facility] SODIUM 137 136 - 145 mEq/L [facility] BUN 13 7 - 17 mg/dL [facility] CO2 30 22 - 32 mmol/l [facility] POTASSIUM 4.5 3.5 - 5.0 mEq/L [facility] Comment: Specimen slightly hemolyzed OSMOLALITY, CALCULATED 284 275 - 295 mOsm/Kg [facility] CREATININE 0.6(L) 0.7 - 1.2 mg/dL [facility] CALCIUM 9.0 8.4 - 10.5 mg/dL [facility] GLUCOSE 112(H) 70 - 110 mg/dL [facility] CHLORIDE 102 95 - 110 mEq/L [facility] Blood specimen (specimen) 04/28/2008 5:15 AM CDT 04/28/2008 5:29 AM CDT us Riky Mejía MD CHEMISTRY ORDERABLES Final Result Performing Organization Address [facility] de Phone Number INTERFACE SYSTEM Refer to clinic/hospital department [facility] CLIA# [id number] [address] [place] [address] * (ABNORMAL) POC GLUCOSE (04/27/2008 8:55 PM CDT) GLUCOSE POC 133(H) 60 - 100 mg/dL [facility] Venous blood specimen (specimen) 04/27/2008 8:55 PM CDT 04/28/2008 2:27 AM CDT us Riky Mejía MD POINT OF CARE TESTING Final Result Performing Organization Address [facility] Phone Number INTERFACE SYSTEM Refer to clinic/[facility] CLIA# [id number] Formerly [facility] [place] [address] * (ABNORMAL) POC GLUCOSE (04/27/2008 4:38 PM CDT) GLUCOSE POC 112(H) 60 - 100 mg/dL [facility] COMMENT POC Follow Protocol [facility] Venous blood specimen (specimen) 04/27/2008 4:38 PM CDT 04/28/2008 12:35 AM CDT Riky Mejía MD POINT OF CARE TESTING Final Result Performing Organization Address [facility] de Phone Number INTERFACE SYSTEM Refer to clinic/hospital department [facility] CLIA# [id number] [address] [place] [address] * (ABNORMAL) POC GLUCOSE (04/27/2008 11:23 AM CDT) GLUCOSE POC 143(H) 60 - 100 mg/dL [facility] Venous blood specimen (specimen) 04/27/2008 11:23 AM CDT 04/28/2008 2:23 AM CDT Riky Mejía MD POINT OF CARE TESTING Final Result Performing Organization Address [facility] de Phone Number INTERFACE SYSTEM Refer to clinic/hospital department [facility] CLIA# [id number] [address] [place] [address] * (ABNORMAL) POC GLUCOSE (04/27/2008 6:38 AM CDT) GLUCOSE POC 122(H) 60 - 100 mg/dL [facility] Venous blood specimen (specimen) 04/27/2008 6:38 AM CDT 04/28/2008 2:33 AM CDT Riky Mejía MD POINT OF CARE TESTING Final Result Performing Organization Address [facility] de Phone Number INTERFACE SYSTEM Refer to clinic/[facility] CLIA# [id number] [address] [place] [address] * (ABNORMAL) POC GLUCOSE (04/26/2008 8:43 PM CDT) GLUCOSE POC 128(H) 60 - 100 mg/dL [facility] Venous blood specimen (specimen) 04/26/2008 8:43 PM CDT 04/27/2008 2:25 AM CDT Riky Mejía MD POINT OF CARE TESTING Final Result Performing Organization Address [facility] de Phone Number INTERFACE SYSTEM Refer to clinic/hospital department [facility] CLIA# [id number] [address] [place] [address] * (ABNORMAL) POC GLUCOSE (04/26/2008 4:53 PM CDT) GLUCOSE POC 113(H) 60 - 100 mg/dL [facility] Venous blood specimen (specimen) 04/26/2008 4:53 PM CDT 04/27/2008 2:26 AM CDT Riky Mejía MD POINT OF CARE TESTING Final Result Performing Organization Address [facility] Phone Number INTERFACE SYSTEM Refer to clinic/hospital department [facility] CLIA# [id number] [address] [place] [address] * (ABNORMAL) POC GLUCOSE (04/26/2008 11:28 AM CDT) GLUCOSE POC 125(H) 60 - 100 mg/dL [facility] Venous blood specimen (specimen) 04/26/2008 11:28 AM CDT 04/27/2008 2:25 AM CDT Riky Mejía MD POINT OF CARE TESTING Final Result Performing Organization Address [facility] de Phone Number INTERFACE SYSTEM Refer to clinic/hospital department [facility] CLIA# [id number] [address] [place] [address] * (ABNORMAL) POC GLUCOSE (04/26/2008 5:36 AM CDT) GLUCOSE POC 123(H) 60 - 100 mg/dL [facility] Venous blood specimen (specimen) 04/26/2008 5:36 AM CDT 04/27/2008 2:25 AM CDT Riky Mejía MD POINT OF CARE TESTING Final Result Performing Organization Address [facility] Phone Number INTERFACE SYSTEM Refer to clinic/hospital department [facility] CLIA# [id number] [address] [place] [address] * (ABNORMAL) TRANSFERRIN (04/26/2008 4:02 AM CDT) TRANSFERRIN 121.0(L) 204.0 - 376.0 mg/dL [facility] Blood specimen (specimen) 04/26/2008 4:02 AM CDT 04/26/2008 4:19 AM CDT Riky Mejía MD CHEMISTRY ORDERABLES Final Result Performing Organization Address [facility] Phone Number INTERFACE SYSTEM Refer to clinic/hospital department [facility] CLIA# [id number] [address] [place] [address] * PREALBUMIN (04/26/2008 4:02 AM CDT) PREALBUMIN 22.2 14.0 - 32.0 mg/dL [facility] Blood specimen (specimen) 04/26/2008 4:02 AM CDT 04/26/2008 4:19 AM CDT Riky Mejía MD CHEMISTRY ORDERABLES Final Result Performing Organization Address [facility] Phone Number INTERFACE SYSTEM Refer to clinic/[facility] CLIA# [id number] [address] [place] [address] * (ABNORMAL) PROTIME-INR (04/26/2008 4:02 AM CDT) PROTIME 16.1(H) 12.8 - 15.8 Secs [facility] Comment:As of 2007 not e change in normal range. INR 1.2 [facility] Comment: Expected Values for INR: DVT/PE Goal INR 2.5; range 2.0 - 3.0 Valve Replacement Tissue Goal INR 2.5; range 2.0 - 3.0 Mechanical Goal INR 3.0; range 2.5 - 3.5 POST-UT Goal INR 2.5; range 2.0 - 3.0 or Goal 3.0; range 2.5 - 3.5 Atrial Fibrillation Goal INR 2.5; range 2.0 - 3.0 Ischemic Stroke Goal INR 2.5; range 2.0 - 3.0 For additional information see Guidelines for Anticoagulation available from the pharmacy [facility]. [phone] Blood specimen (specimen) 04/26/2008 4:02 AM CDT 04/26/2008 4:19 AM CDT Riky Mejía MD HEMATOLOGY ORDERABLES Final Result INTERFACE SYSTEM Refer to clinic/hospital department [facility] CLIA# [id number] [address] [place] [address] * (ABNORMAL) CBC WITH DIFFERENTIAL (04/26/2008 4:02 AM CDT) BASOPHILS ABSOLUTE 0.1 0.0 - 0.2 K/ul [facility] HEMOGLOBIN 10.3(L) 12.0 - 16.0 g/dL [facility] MONOCYTES 11.6(H) 2.0 - 10.0 % [facility] RDW 18.2(H) 11.0 - 14.5 % [facility] MONOCYTE ABSOLUTE 0.9(H) 0.1 - 0.6 K/ul [facility] WBC 8.1 4.5 - 11.0 K/ul [facility] NEUTROPHILS 67.2 42.2 - 75.2 % [facility] MCH 29.3 27.0 - 34.0 pg [facility] NEUTROPHIL ABSOLUTE 5.5 2.0 - 8.0 K/ul [facility] HEMATOCRIT 33.7(L) 36.0 - 46.0 % [facility] PLATELETS 436 140 - 440 K/ul [facility] EOSINOPHIL ABSOLUTE 0.3 0.0 - 0.7 K/ul [facility] EOSINOPHILS 4.0 0.0 - 7.0 % [facility] PERIPHERAL BLOOD SMEAR REVIEW Automated Diff [facility] RBC 3.51(L) 4.20 - 5.40 Mil/ul [facility] MCHC 30.6 30.0 - 35.0 g/dL [facility] LYMPHOCYTE ABSOLUTE 1.3 1.2 - 4.0 K/ul [facility] LYMPHOCYTES 16.2(L) 24.0 - 44.0 % [facility] MCV 96.0 84.0 - 103.0 Fl [facility] BASOPHILS 1.0 0.0 - 1.0 % [facility] MPV 10.3 8.9 - 12.8 Fl [facility] Blood specimen (specimen) 04/26/2008 4:02 AM CDT 04/26/2008 4:19 AM CDT Narrative INTERFACE SYSTEM - 04/26/2008 4:35 AM CDT cbc with diff in am Riky Mejía MD HEMATOLOGY ORDERABLES Final Result INTERFACE SYSTEM Refer to clinic/hospital department [facility] CLIA# [id number] [address] [place] [address] * MAGNESIUM LEVEL (04/26/2008 4:02 AM CDT) MAGNESIUM 2.0 1.7 - 2.4 mg/dL [facility] Blood specimen (specimen) 04/26/2008 4:02 AM CDT 04/26/2008 4:19 AM CDT us Riky Mejía MD CHEMISTRY ORDERABLES Final Result Performing Organization Address [facility] Phone Number INTERFACE SYSTEM Refer to clinic/hospital department [facility] CLIA# [id number] [address] [place] [address] * TRIGLYCERIDE (04/26/2008 4:02 AM CDT) [facility] TRIGLYCERIDE 137 0 - 150 mg/dL [facility] Comment: On 11/10/2007, [facility] changed the triglyceride reference range to 0-150 mg/dl. This is the recommendation of the National Cholesterol Education Program (NCEP-ATPIII). Blood specimen (specimen) 04/26/2008 4:02 AM CDT 04/26/2008 4:19 AM CDT Riky Mejía MD CHEMISTRY ORDERABLES Final Result Performing Organization Address [facility] Phone Number INTERFACE SYSTEM Refer to clinic/hospital department [facility] CLIA# [id number] [address] [place] [address] * PHOSPHORUS (04/26/2008 4:02 AM CDT) [facility] PHOSPHORUS 4.1 2.5 - 4.6 mg/dL [facility] Blood specimen (specimen) 04/26/2008 4:02 AM CDT 04/26/2008 4:19 AM CDT Riky Mejía MD CHEMISTRY ORDERABLES Final Result Performing Organization Address [facility] Phone Number INTERFACE SYSTEM Refer to clinic/[facility] CLIA# [id number] [address] [place] [address] * (ABNORMAL) COMPREHENSIVE METABOLIC PANEL (04/26/2008 4:02 AM CDT) Pathologist [facility] OSMOLALITY, CALCULATED 284 275 - 295 mOsm/Kg [facility] GLOBULIN (CALC) 3.4 2.4 - 3.9 g/dL [facility] TOTAL PROTEIN 6.6 6.3 - 8.2 g/dL [facility] SODIUM 137 136 - 145 mEq/L [facility] BILIRUBIN TOTAL 0.8 0.3 - 1.2 mg/dL [facility] CO2 33(H) 22 - 32 mmol/l [facility] BUN 15 7 - 17 mg/dL [facility] AST 29 8 - 33 U/L [facility] ALBUMIN/GLOBULIN RATIO 0.9(L) 1.0 - 2.3 [facility] POTASSIUM 3.9 3.5 - 5.0 mEq/L [facility] ANION GAP 7(L) 9 - 20 mEq/L [facility] ALBUMIN 3.2(L) 3.5 - 5.0 g/dL [facility] CREATININE 0.6(L) 0.7 - 1.2 mg/dL [facility] ALT 27 4 - 36 IU/L [facility] CALCIUM 8.7 8.4 - 10.5 mg/dL [facility] GLUCOSE 110 70 - 110 mg/dL [facility] ALKALINE PHOSPHATASE 105(H) 25 - 100 U/L [facility] CHLORIDE 101 95 - 110 mEq/L [facility] Blood specimen (specimen) 04/26/2008 4:02 AM CDT 04/26/2008 4:19 AM CDT us Riky Mejía MD CHEMISTRY ORDERABLES Final Result INTERFACE SYSTEM Refer to clinic/hospital department [facility] CLIA# [id number] [address] [place] [address] * (ABNORMAL) BASIC METABOLIC PANEL (04/26/2008 4:02 AM CDT) GLUCOSE 110 70 - 110 mg/dL [facility] CHLORIDE 100 95 - 110 mEq/L [facility] ANION GAP 9 9 - 20 mEq/L [facility] SODIUM 137 136 - 145 mEq/L [facility] BUN 16 7 - 17 mg/dL [facility] CO2 32 22 - 32 mmol/l [facility] POTASSIUM 4.3 3.5 - 5.0 mEq/L [facility] OSMOLALITY, CALCULATED 285 275 - 295 mOsm/Kg [facility] CREATININE 0.5(L) 0.7 - 1.2 mg/dL [facility] CALCIUM 8.8 8.4 - 10.5 mg/dL [facility] Blood specimen (specimen) 04/26/2008 4:02 AM CDT 04/26/2008 4:19 AM CDT Riky Mejía MD CHEMISTRY ORDERABLES Final Result Performing Organization Address [facility] Phone Number INTERFACE SYSTEM Refer to clinic/hospital department [facility] CLIA# [id number] [address] [place] [address] * (ABNORMAL) POC GLUCOSE (04/25/2008 8:51 PM CDT) GLUCOSE POC 107(H) 60 - 100 mg/dL [facility] Venous blood specimen (specimen) 04/25/2008 8:51 PM CDT 04/26/2008 1:42 AM CDT Riky Mejía MD POINT OF CARE TESTING Final Result Performing Organization Address [facility] Phone Number INTERFACE SYSTEM Refer to clinic/hospital department [facility] CLIA# [id number] [address] [place] [address] * (ABNORMAL) POC GLUCOSE (04/25/2008 5:10 PM CDT) GLUCOSE POC 102(H) 60 - 100 mg/dL [facility] Venous blood specimen (specimen) 04/25/2008 5:10 PM CDT 04/26/2008 1:42 AM CDT Riky Mejía MD POINT OF CARE TESTING Final Result Performing Organization Address [facility] Phone Number INTERFACE SYSTEM Refer to clinic/hospital department [facility] CLIA# [id number] [address] [place] [address] * (ABNORMAL) POC GLUCOSE (04/25/2008 10:45 AM CDT) GLUCOSE POC 114(H) 60 - 100 mg/dL [facility] Venous blood specimen (specimen) 04/25/2008 10:45 AM CDT 04/26/2008 1:42 AM CDT Riky Mejía MD POINT OF CARE TESTING Final Result Performing Organization Address [facility] Phone Number INTERFACE SYSTEM Refer to clinic/hospital department [facility] CLIA# [id number] [address] [place] [address] * (ABNORMAL) POC GLUCOSE (04/25/2008 6:00 AM CDT) GLUCOSE POC 113(H) 60 - 100 mg/dL [facility] Venous blood specimen (specimen) 04/25/2008 6:00 AM CDT 04/26/2008 1:45 AM CDT Riky Mejía MD POINT OF CARE TESTING Final Result Performing Organization Address [facility] de Phone Number INTERFACE SYSTEM Refer to clinic/hospital department [facility] CLIA# [id number] [address] [place] [address] * (ABNORMAL) BASIC METABOLIC PANEL (04/25/2008 3:28 AM CDT) OSMOLALITY, CALCULATED 286 275 - 295 mOsm/Kg [facility] CREATININE 0.5(L) 0.7 - 1.2 mg/dL [facility] CALCIUM 8.9 8.4 - 10.5 mg/dL [facility] GLUCOSE 115(H) 70 - 110 mg/dL [facility] CHLORIDE 101 95 - 110 mEq/L [facility] SODIUM 136 136 - 145 mEq/L [facility] ANION GAP 10 9 - 20 mEq/L [facility] BUN 20(H) 7 - 17 mg/dL [facility] CO2 30 22 - 32 mmol/l [facility] POTASSIUM 4.9 3.5 - 5.0 mEq/L [facility] Blood specimen (specimen) 04/25/2008 3:28 AM CDT 04/25/2008 3:31 AM CDT Riky Mejía MD CHEMISTRY ORDERABLES Final Result Performing Organization Address [facility] Phone Number INTERFACE SYSTEM Refer to clinic/hospital department [facility] CLIA# [id number] [address] [place] [address] * (ABNORMAL) POC GLUCOSE (04/24/2008 8:30 PM CDT) GLUCOSE POC 121(H) 60 - 100 mg/dL [facility] Venous blood specimen (specimen) 04/24/2008 8:30 PM CDT 04/25/2008 1:43 AM CDT Riky Mejía MD POINT OF CARE TESTING Final Result Performing Organization Address [facility] Phone Number INTERFACE SYSTEM Refer to clinic/hospital department [facility] CLIA# [id number] [address] [place] [address] * (ABNORMAL) POC GLUCOSE (04/24/2008 5:10 PM CDT) GLUCOSE POC 109(H) 60 - 100 mg/dL [facility] Venous blood specimen (specimen) 04/24/2008 5:10 PM CDT 04/25/2008 1:43 AM CDT Riky Mejía MD POINT OF CARE TESTING Final Result Performing Organization Address [facility] de Phone Number INTERFACE SYSTEM Refer to clinic/hospital department [facility] CLIA# [id number] [address] [place] [address] * (ABNORMAL) POC GLUCOSE (04/24/2008 1:53 PM CDT) GLUCOSE POC 113(H) 60 - 100 mg/dL [facility] Venous blood specimen (specimen) 04/24/2008 1:53 PM CDT 04/25/2008 1:50 AM CDT Riky Mejía MD POINT OF CARE TESTING Final Result Performing Organization Address [facility] de Phone Number INTERFACE SYSTEM Refer to clinic/hospital department [facility] CLIA# [id number] [address] [place] [address] * (ABNORMAL) POC GLUCOSE (04/24/2008 11:40 AM CDT) GLUCOSE POC 160(H) 60 - 100 mg/dL [facility] Venous blood specimen (specimen) 04/24/2008 11:40 AM CDT 04/25/2008 1:50 AM CDT Riky Mejía MD POINT OF CARE TESTING Final Result Performing Organization Address [facility] de Phone Number INTERFACE SYSTEM Refer to clinic/hospital department [facility] CLIA# [id number] [address] [place] [address] * (ABNORMAL) POC GLUCOSE (04/24/2008 5:45 AM CDT) GLUCOSE POC 129(H) 60 - 100 mg/dL [facility] Venous blood specimen (specimen) 04/24/2008 5:45 AM CDT 04/25/2008 1:46 AM CDT Riky Mejía MD POINT OF CARE TESTING Final Result INTERFACE SYSTEM Refer to clinic/hospital department [facility] CLIA# [id number] [address] [place] [address] * (ABNORMAL) CBC WITH DIFFERENTIAL (04/24/2008 3:09 AM CDT) WBC 10.5 4.5 - 11.0 K/ul [facility] MCH 29.4 27.0 - 34.0 pg [facility] NEUTROPHIL ABSOLUTE 7.1 2.0 - 8.0 K/ul [facility] NEUTROPHILS 67.1 42.2 - 75.2 % [facility] HEMATOCRIT 32.8(L) 36.0 - 46.0 % [facility] EOSINOPHILS 4.3 0.0 - 7.0 % [facility] PLATELETS 491(H) 140 - 440 K/ul [facility] PERIPHERAL BLOOD SMEAR REVIEW Automated Diff [facility] EOSINOPHIL ABSOLUTE 0.5 0.0 - 0.7 K/ul [facility] RBC 3.44(L) 4.20 - 5.40 Mil/ul [facility] LYMPHOCYTES 17.3(L) 24.0 - 44.0 % [facility] MCHC 30.8 30.0 - 35.0 g/dL [facility] LYMPHOCYTE ABSOLUTE 1.8 1.2 - 4.0 K/ul [facility] MCV 95.3 84.0 - 103.0 Fl [facility] MPV 10.4 8.9 - 12.8 Fl [facility] BASOPHILS ABSOLUTE 0.1 0.0 - 0.2 K/ul [facility] BASOPHILS 1.3(H) 0.0 - 1.0 % [facility] HEMOGLOBIN 10.1(L) 12.0 - 16.0 g/dL [facility] RDW 17.8(H) 11.0 - 14.5 % [facility] MONOCYTE ABSOLUTE 1.1(H) 0.1 - 0.6 K/ul [facility] MONOCYTES 10.0 2.0 - 10.0 % [facility] Blood specimen (specimen) 04/24/2008 3:09 AM CDT 04/24/2008 3:21 AM CDT Riky Mejía MD HEMATOLOGY ORDERABLES Final Result Performing Organization Address [facility] Phone Number INTERFACE SYSTEM Refer to clinic/hospital department [facility] CLIA# [id number] [address] [place] [address] * (ABNORMAL) BASIC METABOLIC PANEL (04/24/2008 3:09 AM CDT) BUN 20(H) 7 - 17 mg/dL [facility] CO2 31 22 - 32 mmol/l [facility] POTASSIUM 4.6 3.5 - 5.0 mEq/L [facility] OSMOLALITY, CALCULATED 286 275 - 295 mOsm/Kg [facility] CREATININE 0.5(L) 0.7 - 1.2 mg/dL [facility] CALCIUM 8.8 8.4 - 10.5 mg/dL [facility] GLUCOSE 106 70 - 110 mg/dL [facility] CHLORIDE 100 95 - 110 mEq/L [facility] ANION GAP 11 9 - 20 mEq/L [facility] SODIUM 137 136 - 145 mEq/L [facility] Blood specimen (specimen) 04/24/2008 3:09 AM CDT 04/24/2008 3:21 AM CDT Riky Mejía MD CHEMISTRY ORDERABLES Final Result Performing Organization Address [facility] Phone Number INTERFACE SYSTEM Refer to clinic/hospital department [facility] CLIA# [id number] [address] [place] [address] * (ABNORMAL) POC GLUCOSE (04/23/2008 8:56 PM CDT) GLUCOSE POC 132(H) 60 - 100 mg/dL [facility] Venous blood specimen (specimen) 04/23/2008 8:56 PM CDT 04/24/2008 1:58 AM CDT us Riky Mejía MD POINT OF CARE TESTING Final Result Performing Organization Address City/[facility] de Phone Number INTERFACE SYSTEM Refer to clinic/hospital department [facility] CLIA# [id number] [address] [place] [address] * (ABNORMAL) POC GLUCOSE (04/23/2008 4:37 PM CDT) GLUCOSE POC 129(H) 60 - 100 mg/dL [facility] Venous blood specimen (specimen) 04/23/2008 4:37 PM CDT 04/24/2008 1:58 AM CDT us Riky Mejía MD POINT OF CARE TESTING Final Result Performing Organization Address [facility] Phone Number INTERFACE SYSTEM Refer to clinic/hospital department [facility] CLIA# [id number] [address] [place] [address] * (ABNORMAL) POC GLUCOSE (04/23/2008 11:23 AM CDT) GLUCOSE POC 147(H) 60 - 100 mg/dL [facility] Venous blood specimen (specimen) 04/23/2008 11:23 AM CDT 04/24/2008 7:04 AM CDT us Riky Mejía MD POINT OF CARE TESTING Final Result Performing Organization Address City/[facility] de Phone Number INTERFACE SYSTEM Refer to clinic/hospital department [facility] CLIA# [id number] [address] [place] [address] * (ABNORMAL) POC GLUCOSE (04/23/2008 7:53 AM CDT) GLUCOSE POC 160(H) 60 - 100 mg/dL [facility] Venous blood specimen (specimen) 04/23/2008 7:53 AM CDT 04/24/2008 7:05 AM CDT Riky Mejía MD POINT OF CARE TESTING Final Result Performing Organization Address [facility] Phone Number INTERFACE SYSTEM Refer to clinic/hospital department [facility] CLIA# [id number] [address] [place] [address] * (ABNORMAL) BASIC METABOLIC PANEL (04/23/2008 3:33 AM CDT) BUN 18(H) 7 - 17 mg/dL [facility] CO2 30 22 - 32 mmol/l [facility] POTASSIUM 4.2 3.5 - 5.0 mEq/L [facility] OSMOLALITY, CALCULATED 283 275 - 295 mOsm/Kg [facility] CREATININE 0.4(L) 0.7 - 1.2 mg/dL [facility] CALCIUM 8.4 8.4 - 10.5 mg/dL [facility] GLUCOSE 131(H) 70 - 110 mg/dL [facility] CHLORIDE 104 95 - 110 mEq/L [facility] ANION GAP 5(L) 9 - 20 mEq/L [facility] SODIUM 135(L) 136 - 145 mEq/L [facility] Blood specimen (specimen) 04/23/2008 3:33 AM CDT 04/23/2008 3:39 AM CDT Riky Mejía MD CHEMISTRY ORDERABLES Final Result Performing Organization Address [facility] Phone Number INTERFACE SYSTEM Refer to clinic/hospital department [facility] CLIA# [id number] [address] [place] [address] * (ABNORMAL) POC GLUCOSE (04/23/2008 3:22 AM CDT) GLUCOSE POC 130(H) 60 - 100 mg/dL [facility] Venous blood specimen (specimen) 04/23/2008 3:22 AM CDT 04/24/2008 7:07 AM CDT Riky Mejía MD POINT OF CARE TESTING Final Result Performing Organization Address City/[facility] de Phone Number INTERFACE SYSTEM Refer to clinic/hospital department [facility] CLIA# [id number] [address] [place] [address] * (ABNORMAL) POC GLUCOSE (04/22/2008 11:30 PM CDT) GLUCOSE POC 155(H) 60 - 100 mg/dL [facility] Venous blood specimen (specimen) 04/22/2008 11:30 PM CDT 04/23/2008 7:12 AM CDT Riky Mejía MD POINT OF CARE TESTING Final Result Performing Organization Address [facility] Phone Number INTERFACE SYSTEM Refer to clinic/hospital department [facility] CLIA# [id number] [address] [place] [address] * (ABNORMAL) POC GLUCOSE (04/22/2008 7:54 PM CDT) GLUCOSE POC 158(H) 60 - 100 mg/dL [facility] Venous blood specimen (specimen) 04/22/2008 7:54 PM CDT 04/23/2008 3:46 PM CDT Riky Mejía MD POINT OF CARE TESTING Final Result Performing Organization Address City/[facility] de Phone Number INTERFACE SYSTEM Refer to clinic/hospital department [facility] CLIA# [id number] [address] [place] [address] * (ABNORMAL) POC GLUCOSE (04/22/2008 4:09 PM CDT) GLUCOSE POC 129(H) 60 - 100 mg/dL [facility] Venous blood specimen (specimen) 04/22/2008 4:09 PM CDT 04/23/2008 3:46 PM CDT Riky Mejía MD POINT OF CARE TESTING Final Result Performing Organization Address City/[facility] de Phone Number INTERFACE SYSTEM Refer to clinic/hospital department [facility] CLIA# [id number] [address] [place] [address] * (ABNORMAL) POC GLUCOSE (04/22/2008 11:36 AM CDT) GLUCOSE POC 118(H) 60 - 100 mg/dL [facility] Venous blood specimen (specimen) 04/22/2008 11:36 AM CDT 04/23/2008 7:12 AM CDT Riky Mejía MD POINT OF CARE TESTING Final Result Performing Organization Address [facility] Phone Number INTERFACE SYSTEM Refer to clinic/hospital department [facility] CLIA# [id number] [address] [place] [address] * (ABNORMAL) POC GLUCOSE (04/22/2008 7:55 AM CDT) GLUCOSE POC 160(H) 60 - 100 mg/dL [facility] Venous blood specimen (specimen) 04/22/2008 7:55 AM CDT 04/24/2008 7:07 AM CDT Riky Mejía MD POINT OF CARE TESTING Final Result Performing Organization Address City/[facility] de Phone Number INTERFACE SYSTEM Refer to clinic/hospital department [facility] CLIA# [id number] [address] [place] [address] * (ABNORMAL) BASIC METABOLIC PANEL (04/22/2008 3:26 AM CDT) BUN 15 7 - 17 mg/dL [facility] CO2 28 22 - 32 mmol/l [facility] OSMOLALITY, CALCULATED 300(H) 275 - 295 mOsm/Kg [facility] POTASSIUM 3.0(L) 3.5 - 5.0 mEq/L [facility] CREATININE 0.2(L) 0.7 - 1.2 mg/dL [facility] CALCIUM 6.7(L) 8.4 - 10.5 mg/dL [facility] GLUCOSE 109 70 - 110 mg/dL [facility] CHLORIDE 109 95 - 110 mEq/L [facility] SODIUM 147(H) 136 - 145 mEq/L [facility] ANION GAP 13 9 - 20 mEq/L [facility] Blood specimen (specimen) 04/22/2008 3:26 AM CDT 04/22/2008 3:31 AM CDT Riky Mejía MD CHEMISTRY ORDERABLES Final Result Performing Organization Address City/[facility] Co al Phone Number INTERFACE SYSTEM Refer to clinic/hospital department [facility] CLIA# [id number] [address] [place] [address] * POC GLUCOSE (04/22/2008 3:17 AM CDT) GLUCOSE POC 73 60 - 100 mg/dL [facility] Venous blood specimen (specimen) 04/22/2008 3:17 AM CDT 04/22/2008 6:51 AM CDT Riky Mejía MD POINT OF CARE TESTING Final Result Performing Organization Address [facility] Phone Number INTERFACE SYSTEM Refer to clinic/hospital department [facility] CLIA# [id number] [address] [place] [address] * (ABNORMAL) POC GLUCOSE (04/21/2008 11:17 PM CDT) GLUCOSE POC 130(H) 60 - 100 mg/dL [facility] Venous blood specimen (specimen) 04/21/2008 11:17 PM CDT 04/22/2008 6:51 AM CDT us Riky Mejía MD POINT OF CARE TESTING Final Result Performing Organization Address City/[facility] de Phone Number INTERFACE SYSTEM Refer to clinic/hospital department [facility] CLIA# [id number] [address] [place] [address] * (ABNORMAL) POC GLUCOSE (04/21/2008 7:59 PM CDT) GLUCOSE POC 135(H) 60 - 100 mg/dL [facility] Venous blood specimen (specimen) 04/21/2008 7:59 PM CDT 04/22/2008 6:51 AM CDT us Riky Mejía MD POINT OF CARE TESTING Final Result Performing Organization Address [facility] de Phone Number INTERFACE SYSTEM Refer to clinic/hospital department [facility] CLIA# [id number] [address] [place] [address] * (ABNORMAL) POC GLUCOSE (04/21/2008 4:29 PM CDT) GLUCOSE POC 144(H) 60 - 100 mg/dL [facility] COMMENT POC Follow Protocol [facility] Venous blood specimen (specimen) 04/21/2008 4:29 PM CDT 04/22/2008 6:51 AM CDT us Riky Mejía MD POINT OF CARE TESTING Final Result Performing Organization Address City/[facility] de Phone Number INTERFACE SYSTEM Refer to clinic/hospital department [facility] CLIA# [id number] [address] [place] [address] * (ABNORMAL) POC GLUCOSE (04/21/2008 1:17 PM CDT) COMMENT POC Follow Protocol [facility] GLUCOSE POC 145(H) 60 - 100 mg/dL [facility] Venous blood specimen (specimen) 04/21/2008 1:17 PM CDT 04/22/2008 6:51 AM CDT Riky Mejía MD POINT OF CARE TESTING Final Result Performing Organization Address [facility] Phone Number INTERFACE SYSTEM Refer to clinic/hospital department [facility] CLIA# [id number] [address] [place] [address] * POTASSIUM LEVEL (04/21/2008 7:33 AM CDT) POTASSIUM 4.2 3.5 - 5.0 mEq/L [facility] Comment: Specimen slightly hemolyzed Blood specimen (specimen) 04/21/2008 7:33 AM CDT 04/21/2008 7:33 AM CDT Riky Mejía MD CHEMISTRY ORDERABLES Final Result Performing Organization Address [facility] Phone Number INTERFACE SYSTEM Refer to clinic/hospital department [facility] CLIA# [id number] [address] [place] [address] * (ABNORMAL) POC GLUCOSE (04/21/2008 7:26 AM CDT) GLUCOSE POC 146(H) 60 - 100 mg/dL [facility] Venous blood specimen (specimen) 04/21/2008 7:26 AM CDT 04/22/2008 6:51 AM CDT Riky Mejía MD POINT OF CARE TESTING Final Result Performing Organization Address [facility] Phone Number INTERFACE SYSTEM Refer to clinic/hospital department [facility] CLIA# [id number] [address] [place] [address] * (ABNORMAL) POC GLUCOSE (04/21/2008 2:58 AM CDT) Pathologist [facility] GLUCOSE POC 128(H) 60 - 100 mg/dL [facility] Venous blood specimen (specimen) 04/21/2008 2:58 AM CDT 04/21/2008 7:32 AM CDT Riky Mejía MD POINT OF CARE TESTING Final Result Performing Organization Address [facility] de Phone Number INTERFACE SYSTEM Refer to clinic/hospital department [facility] CLIA# [id number] [address] [place] [address] * (ABNORMAL) BASIC METABOLIC PANEL (04/21/2008 2:00 AM CDT) Pathologist [facility] ANION GAP 7(L) 9 - 20 mEq/L [facility] SODIUM 137 136 - 145 mEq/L [facility] BUN 19(H) 7 - 17 mg/dL [facility] CO2 36(H) 22 - 32 mmol/l [facility] POTASSIUM 3.8 3.5 - 5.0 mEq/L [facility] OSMOLALITY, CALCULATED 287 275 - 295 mOsm/Kg [facility] CREATININE 0.4(L) 0.7 - 1.2 mg/dL [facility] CALCIUM 8.4 8.4 - 10.5 mg/dL [facility] GLUCOSE 142(H) 70 - 110 mg/dL [facility] CHLORIDE 98 95 - 110 mEq/L [facility] Blood specimen (specimen) 04/21/2008 2:00 AM CDT 04/21/2008 2:00 AM CDT Riky Mejía MD CHEMISTRY ORDERABLES Final Result Performing Organization Address [facility] de Phone Number INTERFACE SYSTEM Refer to clinic/hospital department [facility] CLIA# [id number] [address] [place] [address] * (ABNORMAL) POC GLUCOSE (04/20/2008 11:57 PM CDT) Pathologist [facility] GLUCOSE POC 142(H) 60 - 100 mg/dL [facility] Venous blood specimen (specimen) 04/20/2008 11:57 PM CDT 04/21/2008 12:09 AM CDT Riky Mejía MD POINT OF CARE TESTING Final Result Performing Organization Address [facility] de Phone Number INTERFACE SYSTEM Refer to clinic/hospital department [facility] CLIA# [id number] [facility] [place] [address] * (ABNORMAL) BASIC METABOLIC PANEL (04/20/2008 11:40 PM CDT) [facility] POTASSIUM 3.8 3.5 - 5.0 mEq/L [facility] Comment: Specimen slightly hemolyzed OSMOLALITY, CALCULATED 286 275 - 295 mOsm/Kg [facility] CREATININE 0.5(L) 0.7 - 1.2 mg/dL [facility] CALCIUM 8.7 8.4 - 10.5 mg/dL [facility] GLUCOSE 119(H) 70 - 110 mg/dL [facility] CHLORIDE 95 95 - 110 mEq/L [facility] ANION GAP 13 9 - 20 mEq/L [facility] SODIUM 137 136 - 145 mEq/L [facility] BUN 20(H) 7 - 17 mg/dL [facility] CO2 33(H) 22 - 32 mmol/l [facility] Blood specimen (specimen) 04/20/2008 11:40 PM CDT 04/21/2008 5:43 AM CDT us Riky Mejía MD CHEMISTRY ORDERABLES Final Result Performing Organization Address [facility] Co de Phone Number INTERFACE SYSTEM Refer to clinic/hospital department [facility] CLIA# [id number] [address] [place] [address] * (ABNORMAL) POC GLUCOSE (04/20/2008 7:17 PM CDT) GLUCOSE POC 134(H) 60 - 100 mg/dL [facility] Venous blood specimen (specimen) 04/20/2008 7:17 PM CDT 04/21/2008 12:00 AM CDT Riky Mejía MD POINT OF CARE TESTING Final Result Performing Organization Address [facility] de Phone Number INTERFACE SYSTEM Refer to clinic/hospital department [facility] CLIA# [id number] [address] [place] [address] * POTASSIUM LEVEL (04/20/2008 4:09 PM CDT) POTASSIUM 4.1 3.5 - 5.0 mEq/L [facility] Blood specimen (specimen) 04/20/2008 4:09 PM CDT 04/20/2008 4:09 PM CDT Riky Mejía MD CHEMISTRY ORDERABLES Final Result Performing Organization Address [facility] de Phone Number INTERFACE SYSTEM Refer to clinic/hospital department [facility] CLIA# [id number] [address] [place] [address] * (ABNORMAL) POC GLUCOSE (04/20/2008 3:59 PM CDT) GLUCOSE POC 118(H) 60 - 100 mg/dL [facility] Venous blood specimen (specimen) 04/20/2008 3:59 PM CDT 04/21/2008 12:00 AM CDT Riky Mejía MD POINT OF CARE TESTING Final Result Performing Organization Address [facility] de Phone Number INTERFACE SYSTEM Refer to clinic/hospital department [facility] CLIA# [id number] [address] [place] [address] * (ABNORMAL) POC GLUCOSE (04/20/2008 12:02 PM CDT) GLUCOSE POC 158(H) 60 - 100 mg/dL [facility] Venous blood specimen (specimen) 04/20/2008 12:02 PM CDT 04/21/2008 12:00 AM CDT Riky Mejía MD POINT OF CARE TESTING Final Result INTERFACE SYSTEM Refer to clinic/hospital department [facility] CLIA# [id number] [address] [place] [address] * (ABNORMAL) POC ISTAT EG 7+ (04/20/2008 10:06 AM CDT) SPECIMEN TYPE Arterial [facility] Comment: Test Performed By [id number] Pulse OX: 97 Hemoglobin calculated from Hematocrit result PCO2 TEMP CORRECT 48(H) 35 - 45 mmHg [facility] HEMOGLOBIN POC 10.5 +/-3 g/dL 12.0 - 16.0 g/dL [facility] POTASSIUM 3.8 3.5 - 4.9 mEq/L [facility] PH TEMP CORRECT 7.47(H) 7.35 - 7.45 Unit [facility] HCO3 (CALC) POC 35.4(H) 22.0 - 26.0 mmol/l [facility] TCO2 (CALC) POC 37(H) 23 - 27 mmol/l [facility] FIO2 40 [facility] PO2 90 80 - 105 mmHg [facility] CALCIUM IONIZED 1.06(L) 1.12 - 1.32 mmol/l [facility] HEMATOCRIT ABG 31(L) 38 - 51 % [facility] PCO2 POC 48(H) 35 - 45 mmHg [facility] SODIUM 134(L) 138 - 146 mEq/L [facility] BASE EXCESS 12(H) -2 - 3 mmol/l [facility] PH 7.47(H) 7.35 - 7.45 Unit [facility] O2 SATURATION 97 95 - 98 % [facility] PO2 TEMP CORRECT 90 80 - 105 mmHg [facility] Arterial blood specimen (specimen) 04/20/2008 10:06 AM CDT 04/20/2008 11:14 AM CDT us Riky Mejía MD POINT OF CARE TESTING COM F inal Result Performing Organization Address [facility] de Phone Number INTERFACE SYSTEM Refer to clinic/hospital department [facility] CLIA# [id number] [address] [place] [address] * POTASSIUM LEVEL (04/20/2008 7:15 AM CDT) POTASSIUM 4.5 3.5 - 5.0 mEq/L [facility] Blood specimen (specimen) 04/20/2008 7:15 AM CDT 04/20/2008 7:20 AM CDT us Riky Mejía MD CHEMISTRY ORDERABLES Final Result Performing Organization Address [facility] de Phone Number INTERFACE SYSTEM Refer to clinic/hospital department [facility] CLIA# [id number] [address] [place] [address] * (ABNORMAL) POC GLUCOSE (04/20/2008 7:11 AM CDT) GLUCOSE POC 138(H) 60 - 100 mg/dL [facility] Venous blood specimen (specimen) 04/20/2008 7:11 AM CDT 04/20/2008 11:59 PM CDT us Riky Mejía MD POINT OF CARE TESTING Final Result Performing Organization Address City/[facility] de Phone Number INTERFACE SYSTEM Refer to clinic/hospital department [facility] CLIA# [id number] [address] [place] [address] * (ABNORMAL) POC ISTAT EG 7+ (04/20/2008 4:30 AM CDT) FIO2 30 [facility] HEMATOCRIT ABG 29(L) 38 - 51 % [facility] PO2 84 80 - 105 mmHg [facility] CALCIUM IONIZED 1.11(L) 1.12 - 1.32 mmol/l [facility] PCO2 POC 44 35 - 45 mmHg [facility] BASE EXCESS 14(H) -2 - 3 mmol/l [facility] SODIUM 131(L) 138 - 146 mEq/L [facility] PH 7.53(H) 7.35 - 7.45 Unit [facility] PO2 TEMP CORRECT 84 80 - 105 mmHg [facility] O2 SATURATION 97 95 - 98 % [facility] SPECIMEN TYPE Arterial [facility] Comment: Test Performed By [id number] PEEP: 06 Pressure Support: 14 Pulse OX: 96 Hemoglobin calculated from Hematocrit result PCO2 TEMP CORRECT 44 35 - 45 mmHg [facility] POTASSIUM 4.0 3.5 - 4.9 mEq/L [facility] HEMOGLOBIN POC 9.9 +/-3 g/dL 12.0 - 16.0 g/dL [facility] PH TEMP CORRECT 7.53(H) 7.35 - 7.45 Unit [facility] TCO2 (CALC) POC 38(H) 23 - 27 mmol/l [facility] HCO3 (CALC) POC 36.4(H) 22.0 - 26.0 mmol/l [facility] Arterial blood specimen (specimen) 04/20/2008 4:30 AM CDT 04/20/2008 5:54 AM CDT us Riky Mejía MD POINT OF CARE TESTING COM F inal Result INTERFACE SYSTEM Refer to clinic/hospital department [facility] CLIA# [id number] [address] [place] [address] * (ABNORMAL) DIFFERENTIAL, MANUAL (04/20/2008 4:04 AM CDT) POIKILOCYTES 1+(A) None Seen [facility] MONOCYTE 9 4 - 10 % [facility] RBC MORPHOLOGY Abnormal(A ) Normal [facility] BANDS 11(H) 0 - 6 % [facility] POLYCHROMASIA 1+(A) None Seen [facility] EOSINOPHILS 1 0 - 3 % [facility] ANISOCYTOSIS 1+(A) None Seen [facility] PLATELET EST. Normal Normal [facility] LYMPHOCYTES 17(L) 24 - 44 % [facility] NEUTROPHILS, SEG 62 36 - 66 % [facility] Blood specimen (specimen) 04/20/2008 4:04 AM CDT 04/20/2008 4:16 AM CDT Narrative INTERFACE SYSTEM - 04/20/2008 5:12 AM CDT Differential ordered by policy. Riky Mejía MD HEMATOLOGY ORDERABLES COM F inal Result INTERFACE SYSTEM Refer to clinic/hospital department [facility] CLIA# [id number] [address] [place] [address] * (ABNORMAL) PT AND APTT (04/20/2008 4:04 AM CDT) PTT 31.3 22.5 - 36.5 Secs [facility] Comment: Therapeutic Range: Hi-level PE/DVT heparin protocol 80.1 -95.0 sec Lo-level PE/DVT heparin protocol 67.1 - 80.0 sec Cardiac Heparin Protocol 67.1 - 85.0 sec Neuro Heparin Protocol 67.1 - 80.0 sec As of 09/25/2007 note change in APTT Normal Range. PROTIME 17.4(H) 12.8 - 15.8 Secs [facility] Comment:As of 2007 not e change in normal range. INR 1.3 [facility] Comment: Expected Values for INR: DVT/PE Goal INR 2.5; range 2.0 - 3.0 Valve Replacement Tissue Goal INR 2.5; range 2.0 - 3.0 Mechanical Goal INR 3.0; range 2.5 - 3.5 POST-UT Goal INR 2.5; range 2.0 - 3.0 or Goal 3.0; range 2.5 - 3.5 Atrial Fibrillation Goal INR 2.5; range 2.0 - 3.0 Ischemic Stroke Goal INR 2.5; range 2.0 - 3.0 For additional information see Guidelines for Anticoagulation available from the pharmacy [facility] [phone] Blood specimen (specimen) 04/20/2008 4:04 AM CDT 04/20/2008 4:16 AM CDT Riky Mejía MD HEMATOLOGY ORDERABLES Edite d INTERFACE SYSTEM Refer to clinic/hospital department [facility] CLIA# [id number] [address] [place] [address] * (ABNORMAL) CBC WITH DIFFERENTIAL (04/20/2008 4:04 AM CDT) HEMATOCRIT 30.6(L) 36.0 - 46.0 % [facility] PLATELETS 436 140 - 440 K/ul [facility] RBC 3.30(L) 4.20 - 5.40 Mil/ul [facility] MCHC 32.0 30.0 - 35.0 g/dL [facility] MCV 92.7 84.0 - 103.0 Fl [facility] MPV 10.2 8.9 - 12.8 Fl [facility] HEMOGLOBIN 9.8(L) 12.0 - 16.0 g/dL [facility] RDW 17.3(H) 11.0 - 14.5 % [facility] WBC 13.0(H) 4.5 - 11.0 K/ul [facility] MCH 29.7 27.0 - 34.0 pg [facility] Blood specimen (specimen) 04/20/2008 4:04 AM CDT 04/20/2008 4:16 AM CDT Riky Mejía MD HEMATOLOGY ORDERABLES Edite d Performing Organization Address [facility] Phone Number INTERFACE SYSTEM Refer to clinic/hospital department [facility] CLIA# [id number] [address] [place] [address] * (ABNORMAL) BASIC METABOLIC PANEL (04/20/2008 4:04 AM CDT) BUN 19(H) 7 - 17 mg/dL [facility] CO2 33(H) 22 - 32 mmol/l [facility] POTASSIUM 4.1 3.5 - 5.0 mEq/L [facility] OSMOLALITY, CALCULATED 280 275 - 295 mOsm/Kg [facility] CREATININE 0.5(L) 0.7 - 1.2 mg/dL [facility] CALCIUM 8.6 8.4 - 10.5 mg/dL [facility] GLUCOSE 146(H) 70 - 110 mg/dL [facility] CHLORIDE 97 95 - 110 mEq/L [facility] ANION GAP 7(L) 9 - 20 mEq/L [facility] SODIUM 133(L) 136 - 145 mEq/L [facility] Blood specimen (specimen) 04/20/2008 4:04 AM CDT 04/20/2008 4:40 AM CDT us Riky Mejía MD CHEMISTRY ORDERABLES Final Result Performing Organization Address [facility] Phone Number INTERFACE SYSTEM Refer to clinic/hospital department [facility] CLIA# [id number] [address] [place] [address] * (ABNORMAL) POC GLUCOSE (04/20/2008 3:59 AM CDT) GLUCOSE POC 160(H) 60 - 100 mg/dL [facility] Venous blood specimen (specimen) 04/20/2008 3:59 AM CDT 04/20/2008 6:38 AM CDT Riky Mejía MD POINT OF CARE TESTING Final Result Performing Organization Address [facility] Phone Number INTERFACE SYSTEM Refer to clinic/hospital department [facility] CLIA# [id number] [address] [place] [address] * POTASSIUM LEVEL (04/19/2008 11:37 PM CDT) POTASSIUM 4.3 3.5 - 5.0 mEq/L [facility] Blood specimen (specimen) 04/19/2008 11:37 PM CDT 04/19/2008 11:46 PM CDT Riky Mejía MD CHEMISTRY ORDERABLES Final Result Performing Organization Address [facility] Phone Number INTERFACE SYSTEM Refer to clinic/hospital [facility] CLIA# [id number] [address] [place] [address] * (ABNORMAL) POC GLUCOSE (04/19/2008 11:30 PM CDT) GLUCOSE POC 156(H) 60 - 100 mg/dL [facility] Venous blood specimen (specimen) 04/19/2008 11:30 PM CDT 04/20/2008 6:37 AM CDT us Riky Mejía MD POINT OF CARE TESTING Final Result Performing Organization Address [facility] Phone Number INTERFACE SYSTEM Refer to clinic/hospital [facility] CLIA# [id number] [address] [place] [address] * (ABNORMAL) DIFFERENTIAL, MANUAL (04/19/2008 8:35 PM CDT) MONOCYTE 12(H) 4 - 10 % [facility] ANISOCYTOSIS 1+(A) None Seen [facility] BANDS 18(H) 0 - 6 % [facility] PLATELET EST. Normal Normal [facility] METAMYELOCYTE 2(H) 0 - 1 % [facility] POLYCHROMASIA 1+(A) None Seen [facility] LYMPHOCYTES 6(L) 24 - 44 % [facility] RBC MORPHOLOGY Abnormal(A ) Normal [facility] NEUTROPHILS, SEG 57 36 - 66 % [facility] MYELOCYTES 5(H) <=1 % [facility] GIANT PLATELETS Present(A) [facility] Blood specimen (specimen) 04/19/2008 8:35 PM CDT 04/19/2008 8:35 PM CDT Narrative INTERFACE SYSTEM - 04/19/2008 10:07 PM CDT Differential ordered by policy. Riky Mejía MD HEMATOLOGY ORDERABLES COM F inal Result INTERFACE SYSTEM Refer to clinic/hospital department [facility] CLIA# [id number] [address] [place] [address] * (ABNORMAL) PT AND APTT (04/19/2008 8:35 PM CDT) INR 1.3 [facility] Comment: Expected Values for INR: DVT/PE Goal INR 2.5; range 2.0 - 3.0 Valve Replacement Tissue Goal INR 2.5; range 2.0 - 3.0 Mechanical Goal INR 3.0; range 2.5 - 3.5 POST-UT Goal INR 2.5; range 2.0 - 3.0 or Goal 3.0; range 2.5 - 3.5 Atrial Fibrillation Goal INR 2.5; range 2.0 - 3.0 Ischemic Stroke Goal INR 2.5; range 2.0 - 3.0 For additional information see Guidelines for Anticoagulation available from the pharmacy [facility]. [phone] PROTIME 17.0(H) 12.8 - 15.8 Secs [facility] Comment:As of 2007 not e change in normal range. PTT 33.0 22.5 - 36.5 Secs [facility] Comment: Therapeutic Range: Hi-level PE/DVT [...] HEMATOLOGY ORDERABLES Edite d Performing Organization Address City/State/[facility] Co de Phone Number INTERFACE SYSTEM Refer to clinic/hospital department [facility] CLIA# [id number] [address] [place] [address] * (ABNORMAL) CBC WITH DIFFERENTIAL (04/19/2008 8:35 PM CDT) RBC 3.37(L) 4.20 - 5.40 Mil/ul [facility] MCHC 31.6 30.0 - 35.0 g/dL [facility] LYMPHOCYTE ABSOLUTE 1.8 1.2 - 4.0 K/ul [facility] LYMPHOCYTES 12.2(L) 24.0 - 44.0 % [facility] MCV 92.9 84.0 - 103.0 Fl [facility] BASOPHILS 0.9 0.0 - 1.0 % [facility] MPV 10.4 8.9 - 12.8 Fl [facility] NRBC 1 <=1 [facility] [facility] BASOPHILS ABSOLUTE 0.1 0.0 - 0.2 K/ul [facility] HEMOGLOBIN 9.9(L) 12.0 - 16.0 g/dL [facility] MONOCYTES 10.2(H) 2.0 - 10.0 % [facility] RDW 17.4(H) 11.0 - 14.5 % [facility] MONOCYTE ABSOLUTE 1.5(H) 0.1 - 0.6 K/ul [facility] NEUTROPHILS 75.3(H) 42.2 - 75.2 % [facility] MCH 29.4 27.0 - 34.0 pg [facility] WBC 14.9(H) 4.5 - 11.0 K/ul [facility] Comment: WBC Corrected for Nucleated RBC'S NEUTROPHIL ABSOLUTE 11.3(H) 2.0 - 8.0 K/ul [facility] HEMATOCRIT 31.3(L) 36.0 - 46.0 % [facility] PLATELETS 459(H) 140 - 440 K/ul [facility] EOSINOPHIL ABSOLUTE 0.2 0.0 - 0.7 K/ul [facility] EOSINOPHILS 1.4 0.0 - 7.0 % [facility] Blood specimen (specimen) 04/19/2008 8:35 PM CDT 04/19/2008 8:35 PM CDT us Riky Mejía MD HEMATOLOGY ORDERABLES Edite d Performing Organization Address City/[facility] Co de Phone Number INTERFACE SYSTEM Refer to clinic/hospital department [facility] CLIA# [id number] [address] [place] [phone] * (ABNORMAL) POC GLUCOSE (04/19/2008 8:31 PM CDT) GLUCOSE POC 115(H) 60 - 100 mg/dL [facility] Venous blood specimen (specimen) 04/19/2008 8:31 PM CDT 04/20/2008 6:37 AM CDT Riky Mejía MD POINT OF CARE TESTING Final Result Performing Organization Address City/[facility] Co de Phone Number INTERFACE SYSTEM Refer to clinic/hospital department [facility] CLIA# [id number] [address] [place] [address] * XR CHEST PA OR AP (04/19/2008 [...] GLUCOSE POC 125(H) 60 - 100 mg/dL [facility] Venous blood specimen (specimen) 04/19/2008 4:58 PM CDT 04/20/2008 7:00 AM CDT Riky Mejía MD POINT OF CARE TESTING Final Result Performing Organization Address [facility] Phone Number INTERFACE SYSTEM Refer to clinic/hospital department [facility] CLIA# [id number] [address] [place] [address] * POTASSIUM LEVEL (04/19/2008 4:30 PM CDT) POTASSIUM 4.0 3.5 - 5.0 mEq/L [facility] Blood specimen (specimen) 04/19/2008 4:30 PM CDT 04/19/2008 4:30 PM CDT Riky Mejía MD CHEMISTRY ORDERABLES Final Result Performing Organization Address [facility] Phone Number INTERFACE SYSTEM Refer to clinic/hospital department [facility] CLIA# [id number] [address] [place] [address] * (ABNORMAL) POC GLUCOSE (04/19/2008 12:04 PM CDT) GLUCOSE POC 139(H) 60 - 100 mg/dL [facility] Venous blood specimen (specimen) 04/19/2008 12:04 PM CDT 04/20/2008 7:00 AM CDT us Riky Mejía MD POINT OF CARE TESTING Final Result Performing Organization Address [facility] Phone Number INTERFACE SYSTEM Refer to clinic/hospital department [facility] CLIA# [id number] [address] [place] [address] * (ABNORMAL) POC GLUCOSE (04/19/2008 8:28 AM CDT) GLUCOSE POC 144(H) 60 - 100 mg/dL [facility] Venous blood specimen (specimen) 04/19/2008 8:28 AM CDT 04/20/2008 7:00 AM CDT Riky Mejía MD POINT OF CARE TESTING Final Result INTERFACE SYSTEM Refer to clinic/hospital department [facility] CLIA# [id number] [address] [place] [address] * XR CHEST PA OR AP (04/19/2008 [...] 3:20 AM CDT) ANISOCYTOSIS 1+(A) None Seen [facility] LYMPHOCYTES 15(L) 24 - 44 % [facility] MYELOCYTES 1 <=1 % [facility] MONOCYTE 4 4 - 10 % [facility] NEUTROPHILS, SEG 73(H) 36 - 66 % [facility] POIKILOCYTES 1+(A) None Seen [facility] PLATELET EST. Normal Normal [facility] BANDS 6 0 - 6 % [facility] POLYCHROMASIA Present(A) None Seen [facility] EOSINOPHILS 1 0 - 3 % [facility] Blood specimen (specimen) 04/19/2008 3:20 AM CDT 04/19/2008 3:20 AM CDT Narrative INTERFACE SYSTEM - 04/19/2008 3:58 AM CDT Differential ordered by policy. us Riky Mejía MD HEMATOLOGY ORDERABLES COM F inal Result INTERFACE SYSTEM Refer to clinic/hospital department [facility] CLIA# [id number] [address] [place] [phone] * (ABNORMAL) COMPREHENSIVE METABOLIC PANEL (04/19/2008 3:20 AM CDT) GLUCOSE 138(H) 70 - 110 mg/dL [facility] CHLORIDE 94(L) 95 - 110 mEq/L [facility] ALBUMIN/GLOBULIN RATIO 0.9(L) 1.0 - 2.3 [facility] ALKALINE PHOSPHATASE 209(H) 25 - 100 U/L [facility] SODIUM 136 136 - 145 mEq/L [facility] BILIRUBIN TOTAL 1.6(H) 0.3 - 1.2 mg/dL [facility] TOTAL PROTEIN 5.6(L) 6.3 - 8.2 g/dL [facility] BUN 19(H) 7 - 17 mg/dL [facility] AST 73(H) 8 - 33 U/L [facility] CO2 37(H) 22 - 32 mmol/l [facility] ANION GAP 9 9 - 20 mEq/L [facility] ALBUMIN 2.6(L) 3.5 - 5.0 g/dL [facility] POTASSIUM 3.9 3.5 - 5.0 mEq/L [facility] GLOBULIN (CALC) 3.0 2.4 - 3.9 g/dL [facility] CREATININE 0.5(L) 0.7 - 1.2 mg/dL [facility] CALCIUM 8.6 8.4 - 10.5 mg/dL [facility] OSMOLALITY, CALCULATED 285 275 - 295 mOsm/Kg [facility] ALT 68(H) 4 - 36 IU/L [facility] Blood specimen (specimen) 04/19/2008 3:20 AM CDT 04/19/2008 3:20 AM CDT us Riky Mejía MD CHEMISTRY ORDERABLES Final Result INTERFACE SYSTEM Refer to clinic/hospital department [facility] CLIA# [id number] [address] [place] [phone] * (ABNORMAL) CBC WITH DIFFERENTIAL (04/19/2008 3:20 AM CDT) WBC 13.9(H) 4.5 - 11.0 K/ul [facility] MCH 29.1 27.0 - 34.0 pg [facility] HEMATOCRIT 30.7(L) 36.0 - 46.0 % [facility] PLATELETS 390 140 - 440 K/ul [facility] RBC 3.33(L) 4.20 - 5.40 Mil/ul [facility] MCHC 31.6 30.0 - 35.0 g/dL [facility] MPV 10.2 8.9 - 12.8 Fl [facility] MCV 92.2 84.0 - 103.0 Fl [facility] HEMOGLOBIN 9.7(L) 12.0 - 16.0 g/dL [facility] RDW 16.9(H) 11.0 - 14.5 % [facility] Blood specimen (specimen) 04/19/2008 3:20 AM CDT 04/19/2008 3:20 AM CDT Riky Mejía MD HEMATOLOGY ORDERABLES Edite d Performing Organization Address [facility] Phone Number INTERFACE SYSTEM Refer to clinic/hospital department [facility] CLIA# [id number] [address] [place] [address] * POTASSIUM LEVEL (04/18/2008 11:41 PM CDT) POTASSIUM 3.9 3.5 - 5.0 mEq/L [facility] Blood specimen (specimen) 04/18/2008 11:41 PM CDT 04/18/2008 11:41 PM CDT Riky Mejía MD CHEMISTRY ORDERABLES Final Result Performing Organization Address [facility] Phone Number INTERFACE SYSTEM Refer to clinic/hospital department [facility] CLIA# [id number] [address] [place] [address] * POTASSIUM LEVEL (04/18/2008 3:49 PM CDT) POTASSIUM 4.0 3.5 - 5.0 mEq/L [facility] Blood specimen (specimen) 04/18/2008 3:49 PM CDT 04/18/2008 3:49 PM CDT Riky Mejía MD CHEMISTRY ORDERABLES Final Result Performing Organization Address City/[facility] de Phone Number INTERFACE SYSTEM Refer to clinic/hospital department [facility] CLIA# [id number] [address] [place] [address] * (ABNORMAL) POC GLUCOSE (04/18/2008 7:29 AM CDT) Pathologist [facility] GLUCOSE POC 153(H) 60 - 100 mg/dL [facility] Venous blood specimen (specimen) 04/18/2008 7:29 AM CDT 04/19/2008 6:47 AM CDT Riky Mejía MD POINT OF CARE TESTING Final Result Performing Organization Address [facility] de Phone Number INTERFACE SYSTEM Refer to clinic/hospital department [facility] CLIA# [id number] [address] [place] [address] * (ABNORMAL) CBC WITH DIFFERENTIAL (04/18/2008 3:29 AM CDT) [facility] RDW 17.0(H) 11.0 - 14.5 % [facility] BASOPHILS ABSOLUTE 0.2 0.0 - 0.2 K/ul [facility] BASOPHILS 1.0 0.0 - 1.0 % [facility] WBC 14.5(H) 4.5 - 11.0 K/ul [facility] MCH 29.0 27.0 - 34.0 pg [facility] MONOCYTE ABSOLUTE 1.1(H) 0.1 - 0.6 K/ul [facility] MONOCYTES 7.3 2.0 - 10.0 % [facility] HEMATOCRIT 30.5(L) 36.0 - 46.0 % [facility] NEUTROPHIL ABSOLUTE 12.1(H) 2.0 - 8.0 K/ul [facility] NEUTROPHILS 83.1(H) 42.2 - 75.2 % [facility] PLATELETS 332 140 - 440 K/ul [facility] RBC 3.31(L) 4.20 - 5.40 Mil/ul [facility] MCHC 31.5 30.0 - 35.0 g/dL [facility] EOSINOPHILS 1.3 0.0 - 7.0 % [facility] PERIPHERAL BLOOD SMEAR REVIEW Automated Diff [facility] EOSINOPHIL ABSOLUTE 0.2 0.0 - 0.7 K/ul [facility] MCV 92.1 84.0 - 103.0 Fl [facility] LYMPHOCYTES 7.3(L) 24.0 - 44.0 % [facility] MPV 10.3 8.9 - 12.8 Fl [facility] LYMPHOCYTE ABSOLUTE 1.1(L) 1.2 - 4.0 K/ul [facility] HEMOGLOBIN 9.6(L) 12.0 - 16.0 g/dL [facility] Blood specimen (specimen) 04/18/2008 3:29 AM CDT 04/18/2008 3:35 AM CDT us Riky Mejía MD HEMATOLOGY ORDERABLES Edite d INTERFACE SYSTEM Refer to clinic/hospital department [facility] CLIA# [id number] [address] [place] [address] * (ABNORMAL) COMPREHENSIVE METABOLIC PANEL (04/18/2008 3:29 AM CDT) AST 133(H) 8 - 33 U/L [facility] ALBUMIN/GLOBULIN RATIO 0.9(L) 1.0 - 2.3 [facility] POTASSIUM 4.1 3.5 - 5.0 mEq/L [facility] ANION GAP 6(L) 9 - 20 mEq/L [facility] ALBUMIN 2.4(L) 3.5 - 5.0 g/dL [facility] CREATININE 0.4(L) 0.7 - 1.2 mg/dL [facility] ALT 75(H) 4 - 36 IU/L [facility] CALCIUM 8.6 8.4 - 10.5 mg/dL [facility] GLUCOSE 134(H) 70 - 110 mg/dL [facility] ALKALINE PHOSPHATASE 167(H) 25 - 100 U/L [facility] CHLORIDE 96 95 - 110 mEq/L [facility] OSMOLALITY, CALCULATED 287 275 - 295 mOsm/Kg [facility] GLOBULIN (CALC) 2.8 2.4 - 3.9 g/dL [facility] TOTAL PROTEIN 5.2(L) 6.3 - 8.2 g/dL [facility] SODIUM 137 136 - 145 mEq/L [facility] BILIRUBIN TOTAL 2.1(H) 0.3 - 1.2 mg/dL [facility] CO2 39(H) 22 - 32 mmol/l [facility] BUN 20(H) 7 - 17 mg/dL [facility] Blood specimen (specimen) 04/18/2008 3:29 AM CDT 04/18/2008 3:35 AM CDT us Riky Mejía MD CHEMISTRY ORDERABLES Final Result Performing Organization Address [facility] de Phone Number INTERFACE SYSTEM Refer to clinic/hospital department [facility] CLIA# [id number] [address] [place] [phone] * POTASSIUM LEVEL (04/17/2008 6:15 PM CDT) POTASSIUM 3.8 3.5 - 5.0 mEq/L [facility] Blood specimen (specimen) 04/17/2008 6:15 PM CDT 04/17/2008 6:19 PM CDT Narrative INTERFACE SYSTEM - 04/17/2008 6:44 PM CDT stat us Riky Mejía MD CHEMISTRY ORDERABLES Final Result Performing Organization Address City/[facility] de Phone Number INTERFACE SYSTEM Refer to clinic/hospital department [facility] CLIA# [id number] [address] [place] [phone] * (ABNORMAL) POC GLUCOSE (04/17/2008 6:10 PM CDT) GLUCOSE POC 103(H) 60 - 100 mg/dL [facility] Venous blood specimen (specimen) 04/17/2008 6:10 PM CDT 04/18/2008 7:19 AM CDT Riky Mejía MD POINT OF CARE TESTING Final Result Performing Organization Address [facility] de Phone Number INTERFACE SYSTEM Refer to clinic/hospital department [facility] CLIA# [id number] Formerly [facility] [place] [address] * (ABNORMAL) POC GLUCOSE (04/17/2008 8:18 AM CDT) GLUCOSE POC 149(H) 60 - 100 mg/dL [facility] Venous blood specimen (specimen) 04/17/2008 8:18 AM CDT 04/18/2008 7:18 AM CDT Riky Mejía MD POINT OF CARE TESTING Final Result Performing Organization Address [facility] de Phone Number INTERFACE SYSTEM Refer to clinic/hospital department [facility] CLIA# [id number] [facility] [place] [address] * (ABNORMAL) POC ISTAT EG 7+ (04/17/2008 5:31 AM CDT) SODIUM 138 138 - 146 mEq/L [facility] PH 7.49(H) 7.35 - 7.45 Unit [facility] PO2 TEMP CORRECT 92 80 - 105 mmHg [facility] O2 SATURATION 98 95 - 98 % [facility] SPECIMEN TYPE Arterial [facility] Comment: Test Performed By [id number] Tidal volume: 450 PEEP: 08 Rate: 10 Pulse OX: 100 Hemoglobin calculated from Hematocrit result PCO2 TEMP CORRECT 50(H) 35 - 45 mmHg [facility] POTASSIUM 3.6 3.5 - 4.9 mEq/L [facility] HEMOGLOBIN POC 9.5 +/-3 g/dL 12.0 - 16.0 g/dL [facility] PH TEMP CORRECT 7.49(H) 7.35 - 7.45 Unit [facility] TCO2 (CALC) POC 40(H) 23 - 27 mmol/l [facility] HCO3 (CALC) POC 38.0(H) 22.0 - 26.0 mmol/l [facility] FIO2 30 [facility] HEMATOCRIT ABG 28(L) 38 - 51 % [facility] PO2 92 80 - 105 mmHg [facility] CALCIUM IONIZED 1.04(L) 1.12 - 1.32 mmol/l [facility] PCO2 POC 50(H) 35 - 45 mmHg [facility] BASE EXCESS 15(H) -2 - 3 mmol/l [facility] Arterial blood specimen (specimen) 04/17/2008 5:31 AM CDT 04/17/2008 6:05 AM CDT Riky Mejía MD POINT OF CARE TESTING COM F inal Result INTERFACE SYSTEM Refer to clinic/hospital department [facility]# [id number] [address] [place] [phone] * (ABNORMAL) POC ISTAT EG 7+ (04/17/2008 4:22 AM CDT) PCO2 POC 52(H) 35 - 45 mmHg [facility] BASE EXCESS 19(H) -2 - 3 mmol/l [facility] SODIUM 137(L) 138 - 146 mEq/L [facility] PH 7.51(H) 7.35 - 7.45 Unit [facility] PO2 TEMP CORRECT 448(H) 80 - 105 mmHg [facility] O2 SATURATION 100(H) 95 - 98 % [facility] SPECIMEN TYPE Arterial [facility] Comment: Test Performed By [id number] Tidal volume: 500 PEEP: 08 Rate: 12 Pulse OX: 100 Hemoglobin calculated from Hematocrit result PCO2 TEMP CORRECT 52(H) 35 - 45 mmHg [facility] POTASSIUM 3.7 3.5 - 4.9 mEq/L [facility] HEMOGLOBIN POC 10.2 +/-3 g/dL 12.0 - 16.0 g/dL [facility] PH TEMP CORRECT 7.51(H) 7.35 - 7.45 Unit [facility] TCO2 (CALC) POC 44(H) 23 - 27 mmol/l [facility] HCO3 (CALC) POC 41.9(H) 22.0 - 26.0 mmol/l [facility] FIO2 30 [facility] HEMATOCRIT ABG 30(L) 38 - 51 % [facility] PO2 448(H) 80 - 105 mmHg [facility] CALCIUM IONIZED 1.01(L) 1.12 - 1.32 mmol/l [facility] Arterial blood specimen (specimen) 04/17/2008 4:22 AM CDT 04/17/2008 5:21 AM CDT us Riky Mejía MD POINT OF CARE TESTING COM F inal Result INTERFACE SYSTEM Refer to clinic/hospital department [facility] CLIA# [id number] [address] [place] [address] * (ABNORMAL) CBC WITH DIFFERENTIAL (04/17/2008 2:07 AM CDT) BASOPHILS ABSOLUTE 0.1 0.0 - 0.2 K/ul [facility] BASOPHILS 0.8 0.0 - 1.0 % [facility] HEMOGLOBIN 9.4(L) 12.0 - 16.0 g/dL [facility] RDW 16.7(H) 11.0 - 14.5 % [facility] MONOCYTE ABSOLUTE 1.1(H) 0.1 - 0.6 K/ul [facility] MONOCYTES 7.2 2.0 - 10.0 % [facility] WBC 14.8(H) 4.5 - 11.0 K/ul [facility] MCH 29.2 27.0 - 34.0 pg [facility] NEUTROPHIL ABSOLUTE 12.7(H) 2.0 - 8.0 K/ul [facility] NEUTROPHILS 86.0(H) 42.2 - 75.2 % [facility] HEMATOCRIT 28.9(L) 36.0 - 46.0 % [facility] EOSINOPHILS 1.2 0.0 - 7.0 % [facility] PLATELETS 287 140 - 440 K/ul [facility] PERIPHERAL BLOOD SMEAR REVIEW Automated Diff [facility] EOSINOPHIL ABSOLUTE 0.2 0.0 - 0.7 K/ul [facility] RBC 3.22(L) 4.20 - 5.40 Mil/ul [facility] LYMPHOCYTES 4.8(L) 24.0 - 44.0 % [facility] MCHC 32.5 30.0 - 35.0 g/dL [facility] LYMPHOCYTE ABSOLUTE 0.7(L) 1.2 - 4.0 K/ul [facility] MCV 89.8 84.0 - 103.0 Fl [facility] MPV 10.3 8.9 - 12.8 Fl [facility] Blood specimen (specimen) 04/17/2008 2:07 AM CDT 04/17/2008 2:12 AM CDT Riky Mejía MD HEMATOLOGY ORDERABLES Final Result INTERFACE SYSTEM Refer to clinic/hospital department [facility] CLIA# [id number] [address] [place] [phone] * PHOSPHORUS (04/17/2008 2:07 AM CDT) PHOSPHORUS 3.0 2.5 - 4.6 mg/dL [facility] Blood specimen (specimen) 04/17/2008 2:07 AM CDT 04/17/2008 2:12 AM CDT Riky Mejía MD CHEMISTRY ORDERABLES Final Result Performing Organization Address City/State/[facility] Co de Phone Number INTERFACE SYSTEM Refer to clinic/hospital department [facility] CLIA# [id number] Formerly [facility] [place] [address] * (ABNORMAL) COMPREHENSIVE METABOLIC PANEL (04/17/2008 2:07 AM CDT) Pathologist [facility] GLOBULIN (CALC) 2.7 2.4 - 3.9 g/dL [facility] SODIUM 141 136 - 145 mEq/L [facility] BILIRUBIN TOTAL 2.6(H) 0.3 - 1.2 mg/dL [facility] TOTAL PROTEIN 4.9(L) 6.3 - 8.2 g/dL [facility] BUN 16 7 - 17 mg/dL [facility] AST 52(H) 8 - 33 U/L [facility] CO2 36(H) 22 - 32 mmol/l [facility] ALBUMIN/GLOBULIN RATIO 0.8(L) 1.0 - 2.3 [facility] ALBUMIN 2.2(L) 3.5 - 5.0 g/dL [facility] POTASSIUM 3.6 3.5 - 5.0 mEq/L [facility] ANION GAP 7(L) 9 - 20 mEq/L [facility] CALCIUM 7.9(L) 8.4 - 10.5 mg/dL [facility] CREATININE 0.5(L) 0.7 - 1.2 mg/dL [facility] ALT 37(H) 4 - 36 IU/L [facility] GLUCOSE 131(H) 70 - 110 mg/dL [facility] CHLORIDE 102 95 - 110 mEq/L [facility] OSMOLALITY, CALCULATED 292 275 - 295 mOsm/Kg [facility] ALKALINE PHOSPHATASE 122(H) 25 - 100 U/L [facility] Blood specimen (specimen) 04/17/2008 2:07 AM CDT 04/17/2008 2:12 AM CDT Riky Mejía MD CHEMISTRY ORDERABLES Final Result Performing Organization Address [facility] Phone Number INTERFACE SYSTEM Refer to clinic/hospital department [facility] CLIA# [id number] [address] [place] [address] * (ABNORMAL) TRIGLYCERIDE (04/17/2008 2:07 AM CDT) TRIGLYCERIDE 326(H) 0 - 150 mg/dL [facility] Comment: On 11/10/2007, [facility] changed the triglyceride reference range to 0-150 mg/dl. This is the recommendation of the National Cholesterol Education Program (NCEP-ATPIII). Blood specimen (specimen) 04/17/2008 2:07 AM CDT 04/17/2008 2:12 AM CDT Riky Mejía MD CHEMISTRY ORDERABLES Final Result Performing Organization Address [facility] Phone Number INTERFACE SYSTEM Refer to clinic/hospital department [facility] CLIA# [id number] [address] [place] [address] * (ABNORMAL) POC GLUCOSE (04/16/2008 6:56 PM CDT) GLUCOSE POC 151(H) 60 - 100 mg/dL [facility] Venous blood specimen (specimen) 04/16/2008 6:56 PM CDT 04/17/2008 12:06 PM CDT Riky Mejía MD POINT OF CARE TESTING Final Result Performing Organization Address [facility] Phone Number INTERFACE SYSTEM Refer to clinic/hospital department [facility] CLIA# [id number] [address] [place] [address] * POTASSIUM LEVEL (04/16/2008 4:43 PM CDT) POTASSIUM 3.7 3.5 - 5.0 mEq/L [facility] Comment: Specimen slightly hemolyzed. Slight icteric. Blood specimen (specimen) 04/16/2008 4:43 PM CDT 04/16/2008 4:43 PM CDT Riky Mejía MD CHEMISTRY ORDERABLES Final Result INTERFACE SYSTEM Refer to clinic/hospital department [facility] CLIA# [id number] [address] [place] [address] * (ABNORMAL) POC ISTAT EG 7+ (04/16/2008 12:11 PM CDT) POTASSIUM 3.5 3.5 - 4.9 mEq/L [facility] SPECIMEN TYPE Arterial [facility] Comment: Test Performed By [id number] Pulse OX: 97 Hemoglobin calculated from Hematocrit result PCO2 TEMP CORRECT 59(H) 35 - 45 mmHg [facility] HEMOGLOBIN POC 9.9 +/-3 g/dL 12.0 - 16.0 g/dL [facility] PH TEMP CORRECT 7.39 7.35 - 7.45 Unit [facility] HCO3 (CALC) POC 35.3(H) 22.0 - 26.0 mmol/l [facility] CALCIUM IONIZED 1.10(L) 1.12 - 1.32 mmol/l [facility] TCO2 (CALC) POC 37(H) 23 - 27 mmol/l [facility] FIO2 40 [facility] PO2 93 80 - 105 mmHg [facility] HEMATOCRIT ABG 29(L) 38 - 51 % [facility] PCO2 POC 59(H) 35 - 45 mmHg [facility] SODIUM 135(L) 138 - 146 mEq/L [facility] BASE EXCESS 10(H) -2 - 3 mmol/l [facility] PH 7.39 7.35 - 7.45 Unit [facility] O2 SATURATION 97 95 - 98 % [facility] PO2 TEMP CORRECT 93 80 - 105 mmHg [facility] Arterial blood specimen (specimen) 04/16/2008 12:11 PM CDT 04/16/2008 12:15 PM CDT Riky Mejía MD POINT OF CARE TESTING COM F inal Result Performing Organization Address City/[facility] de Phone Number INTERFACE SYSTEM Refer to clinic/hospital department [facility] CLIA# [id number] [address] [place] [address] * (ABNORMAL) POC GLUCOSE (04/16/2008 7:40 AM CDT) GLUCOSE POC 166(H) 60 - 100 mg/dL [facility] Venous blood specimen (specimen) 04/16/2008 7:40 AM CDT 04/17/2008 12:06 PM CDT Riky Mejía MD POINT OF CARE TESTING Final Result Performing Organization Address [facility] Phone Number INTERFACE SYSTEM Refer to clinic/hospital department [facility] CLIA# [id number] [address] [place] [address] * (ABNORMAL) POC ISTAT EG 7+ (04/16/2008 5:16 AM CDT) CALCIUM IONIZED 1.12 1.12 - 1.32 mmol/l [facility] PCO2 POC 46(H) 35 - 45 mmHg [facility] BASE EXCESS 10(H) -2 - 3 mmol/l [facility] SODIUM 133(L) 138 - 146 mEq/L [facility] PH 7.47(H) 7.35 - 7.45 Unit [facility] PO2 TEMP CORRECT 83 80 - 105 mmHg [facility] O2 SATURATION 97 95 - 98 % [facility] SPECIMEN TYPE Arterial [facility] Comment: Test Performed By [id number] Tidal volume: 500 PEEP: 06 Rate: 12 Pulse OX: 97 Hemoglobin calculated from Hematocrit result PCO2 TEMP CORRECT 46(H) 35 - 45 mmHg [facility] POTASSIUM 3.0(L) 3.5 - 4.9 mEq/L [facility] HEMOGLOBIN POC 9.2 +/-3 g/dL 12.0 - 16.0 g/dL [facility] PH TEMP CORRECT 7.47(H) 7.35 - 7.45 Unit [facility] TCO2 (CALC) POC 35(H) 23 - 27 mmol/l [facility] HCO3 (CALC) POC 33.4(H) 22.0 - 26.0 mmol/l [facility] FIO2 30 [facility] HEMATOCRIT ABG 27(L) 38 - 51 % [facility] PO2 83 80 - 105 mmHg [facility] Arterial blood specimen (specimen) 04/16/2008 5:16 AM CDT 04/16/2008 5:51 AM CDT us Riky Mejía MD POINT OF CARE TESTING COM F inal Result INTERFACE SYSTEM Refer to clinic/hospital department [facility] CLIA# [id number] [address] [place] [address] * (ABNORMAL) POC GLUCOSE (04/16/2008 5:12 AM CDT) GLUCOSE POC 151(H) 60 - 100 mg/dL [facility] Venous blood specimen (specimen) 04/16/2008 5:12 AM CDT 04/16/2008 6:51 AM CDT us Riky Mejía MD POINT OF CARE TESTING Final Result INTERFACE SYSTEM Refer to clinic/hospital department [facility] CLIA# [id number] [address] [place] [address] * XR CHEST PA OR AP (04/16/2008 [...] CDT) LYMPHOCYTES 5.4(L) 24.0 - 44.0 % [facility] MCHC 33.3 30.0 - 35.0 g/dL [facility] LYMPHOCYTE ABSOLUTE 1.1(L) 1.2 - 4.0 K/ul [facility] MCV 88.4 84.0 - 103.0 Fl [facility] MPV 10.1 8.9 - 12.8 Fl [facility] BASOPHILS ABSOLUTE 0.1 0.0 - 0.2 K/ul [facility] BASOPHILS 0.3 0.0 - 1.0 % [facility] HEMOGLOBIN 9.4(L) 12.0 - 16.0 g/dL [facility] RDW 16.2(H) 11.0 - 14.5 % [facility] MONOCYTE ABSOLUTE 0.7(H) 0.1 - 0.6 K/ul [facility] MONOCYTES 3.3 2.0 - 10.0 % [facility] WBC 19.6(H) 4.5 - 11.0 K/ul [facility] MCH 29.5 27.0 - 34.0 pg [facility] NEUTROPHIL ABSOLUTE 17.6(H) 2.0 - 8.0 K/ul [facility] NEUTROPHILS 89.9(H) 42.2 - 75.2 % [facility] HEMATOCRIT 28.2(L) 36.0 - 46.0 % [facility] EOSINOPHILS 1.1 0.0 - 7.0 % [facility] PLATELETS 292 140 - 440 K/ul [facility] PERIPHERAL BLOOD SMEAR REVIEW Automated Diff [facility] EOSINOPHIL ABSOLUTE 0.2 0.0 - 0.7 K/ul [facility] RBC 3.19(L) 4.20 - 5.40 Mil/ul [facility] Blood specimen (specimen) 04/16/2008 3:20 AM CDT 04/16/2008 3:26 AM CDT us Riky Mejía MD HEMATOLOGY ORDERABLES Final Result INTERFACE SYSTEM Refer to clinic/hospital department [facility] CLIA# [id number] [address] [place] [address] * (ABNORMAL) COMPREHENSIVE METABOLIC PANEL (04/16/2008 3:20 AM CDT) AST 58(H) 8 - 33 U/L [facility] CO2 32 22 - 32 mmol/l [facility] ALBUMIN/GLOBULIN RATIO 0.9(L) 1.0 - 2.3 [facility] ALBUMIN 2.2(L) 3.5 - 5.0 g/dL [facility] POTASSIUM 2.9(AA) 3.5 - 5.0 mEq/L [facility] Comment: Potentially critical/toxic K called by GS to JOCELYNE DILLARD, with verbal read back, at 04/16/08 04:21. ANION GAP 9 9 - 20 mEq/L [facility] CALCIUM 8.2(L) 8.4 - 10.5 mg/dL [facility] CREATININE 0.6(L) 0.7 - 1.2 mg/dL [facility] ALT 37(H) 4 - 36 IU/L [facility] GLUCOSE 148(H) 70 - 110 mg/dL [facility] CHLORIDE 98 95 - 110 mEq/L [facility] OSMOLALITY, CALCULATED 283 275 - 295 mOsm/Kg [facility] ALKALINE PHOSPHATASE 105(H) 25 - 100 U/L [facility] GLOBULIN (CALC) 2.5 2.4 - 3.9 g/dL [facility] SODIUM 136 136 - 145 mEq/L [facility] BILIRUBIN TOTAL 4.4(H) 0.3 - 1.2 mg/dL [facility] TOTAL PROTEIN 4.7(L) 6.3 - 8.2 g/dL [facility] BUN 17 7 - 17 mg/dL [facility] Blood specimen (specimen) 04/16/2008 3:20 AM CDT 04/16/2008 3:26 AM CDT us Riky Mejía MD CHEMISTRY ORDERABLES Final Result Performing Organization Address [facility] Phone Number INTERFACE SYSTEM Refer to clinic/hospital department [facility] CLIA# [id number] [address] [place] [address] * (ABNORMAL) POC GLUCOSE (04/15/2008 6:36 PM CDT) GLUCOSE POC 110(H) 60 - 100 mg/dL [facility] Venous blood specimen (specimen) 04/15/2008 6:36 PM CDT 04/16/2008 6:51 AM CDT us Riky Mejía MD POINT OF CARE TESTING Final Result Performing Organization Address [facility] Phone Number INTERFACE SYSTEM Refer to clinic/hospital department [facility] CLIA# [id number] [address] [place] [address] * (ABNORMAL) HEMOGLOBIN AND HEMATOCRIT (04/15/2008 4:00 PM CDT) HEMOGLOBIN 7.8(L) 12.0 - 16.0 g/dL [facility] HEMATOCRIT 24.1(L) 36.0 - 46.0 % [facility] Blood specimen (specimen) 04/15/2008 4:00 PM CDT 04/15/2008 4:00 PM CDT us Riky Mejía MD HEMATOLOGY ORDERABLES Final Result Performing Organization Address [facility] Phone Number INTERFACE SYSTEM Refer to clinic/hospital department [facility] CLIA# [id number] [address] [place] [address] * (ABNORMAL) VANCOMYCIN LEVEL TROUGH (04/15/2008 9:53 AM CDT) VANCOMYCIN, TROUGH 18.3(H) 5.0 - 15.0 mcg/mL [facility] Blood specimen (specimen) 04/15/2008 9:53 AM CDT 04/15/2008 9:53 AM CDT Riky Mejía MD CHEMISTRY ORDERABLES Final Result Performing Organization Address [facility] Phone Number INTERFACE SYSTEM Refer to clinic/hospital department [facility] CLIA# [id number] [address] [place] [address] * (ABNORMAL) TRIGLYCERIDE (04/15/2008 9:53 AM CDT) TRIGLYCERIDE 435(H) 0 - 150 mg/dL [facility] Comment: On 11/10/2007, [facility] changed the triglyceride reference range to 0-150 mg/dl. This is the recommendation of the National Cholesterol Education Program (NCEP-ATPIII). Blood specimen (specimen) 04/15/2008 9:53 AM CDT 04/15/2008 9:53 AM CDT Riky Mejía MD CHEMISTRY ORDERABLES Final Result Performing Organization Address [facility] Phone Number INTERFACE SYSTEM Refer to clinic/hospital department [facility] CLIA# [id number] [address] [place] [address] * PROTIME-INR (04/15/2008 9:53 AM CDT) PROTIME 15.2 12.8 - 15.8 Secs [facility] Comment:As of 2007 not e change in normal range. INR 1.1 [facility] Comment: Expected Values for INR: DVT/PE Goal INR 2.5; range 2.0 - 3.0 Valve Replacement Tissue Goal INR 2.5; range 2.0 - 3.0 Mechanical Goal INR 3.0; range 2.5 - 3.5 POST-UT Goal INR 2.5; range 2.0 - 3.0 or Goal 3.0; range 2.5 - 3.5 Atrial Fibrillation Goal INR 2.5; range 2.0 - 3.0 Ischemic Stroke Goal INR 2.5; range 2.0 - 3.0 For additional information see Guidelines for Anticoagulation available from the pharmacy [facility]. [phone] Blood specimen (specimen) 04/15/2008 9:53 AM CDT 04/15/2008 9:53 AM CDT Riky Mejía MD HEMATOLOGY ORDERABLES Final Result Performing Organization Address [facility] Phone Number INTERFACE SYSTEM Refer to clinic/hospital department [facility] CLIA# [id number] [address] [place] [address] * (ABNORMAL) TRANSFERRIN (04/15/2008 9:53 AM CDT) TRANSFERRIN 59.0(L) 204.0 - 376.0 mg/dL [facility] Comment: Specimen slightly hemolyzed Blood specimen (specimen) 04/15/2008 9:53 AM CDT 04/15/2008 9:53 AM CDT Riky Mejía MD CHEMISTRY ORDERABLES Final Result Performing Organization Address [facility] Phone Number INTERFACE SYSTEM Refer to clinic/hospital [facility] CLIA# [id number] [address] [place] [address] * (ABNORMAL) PREALBUMIN (04/15/2008 9:53 AM CDT) PREALBUMIN <5.0(L) 14.0 - 32.0 mg/dL [facility] Comment: Test Repeated; Results confirmed Blood specimen (specimen) 04/15/2008 9:53 AM CDT 04/15/2008 9:53 AM CDT Riky Mejía MD CHEMISTRY ORDERABLES Final Result Performing Organization Address [facility] Phone Number INTERFACE SYSTEM Refer to clinic/hospital [facility] CLIA# [id number] [address] [place] [address] * PHOSPHORUS (04/15/2008 9:53 AM CDT) PHOSPHORUS 3.9 2.5 - 4.6 mg/dL [facility] Blood specimen (specimen) 04/15/2008 9:53 AM CDT 04/15/2008 9:53 AM CDT us Riky Mejía MD CHEMISTRY ORDERABLES Edited Performing Organization Address [facility] Phone Number INTERFACE SYSTEM Refer to clinic/hospital department [facility] CLIA# [id number] [address] [place] [address] * (ABNORMAL) MAGNESIUM LEVEL (04/15/2008 9:53 AM CDT) MAGNESIUM 1.3(L) 1.7 - 2.4 mg/dL [facility] Blood specimen (specimen) 04/15/2008 9:53 AM CDT 04/15/2008 9:53 AM CDT us Riky Mejía MD CHEMISTRY ORDERABLES Edited Performing Organization Address [facility] de Phone Number INTERFACE SYSTEM Refer to clinic/hospital department [facility] CLIA# [id number] [address] [place] [address] * (ABNORMAL) POC ISTAT EG 7+ (04/15/2008 4:13 AM CDT) PH 7.49(H) 7.35 - 7.45 Unit [facility] PO2 TEMP CORRECT 68(L) 80 - 105 mmHg [facility] O2 SATURATION 94(L) 95 - 98 % [facility] SPECIMEN TYPE Arterial [facility] Comment: Test Performed By [id number] Tidal volume: 500 PEEP: 06 Rate: 12 Pulse OX: 98 Hemoglobin calculated from Hematocrit result PCO2 TEMP CORRECT 48(H) 35 - 45 mmHg [facility] POTASSIUM 3.4(L) 3.5 - 4.9 mEq/L [facility] HEMOGLOBIN POC 9.2 +/-3 g/dL 12.0 - 16.0 g/dL [facility] PH TEMP CORRECT 7.49(H) 7.35 - 7.45 Unit [facility] TCO2 (CALC) POC 38(H) 23 - 27 mmol/l [facility] HCO3 (CALC) POC 36.7(H) 22.0 - 26.0 mmol/l [facility] FIO2 30 [facility] HEMATOCRIT ABG 27(L) 38 - 51 % [facility] PO2 68(L) 80 - 105 mmHg [facility] CALCIUM IONIZED 1.06(L) 1.12 - 1.32 mmol/l [facility] PCO2 POC 48(H) 35 - 45 mmHg [facility] BASE EXCESS 13(H) -2 - 3 mmol/l [facility] SODIUM 133(L) 138 - 146 mEq/L [facility] Arterial blood specimen (specimen) 04/15/2008 4:13 AM CDT 04/15/2008 4:27 AM CDT Riky Mejía MD POINT OF CARE TESTING COM F inal Result INTERFACE SYSTEM Refer to clinic/hospital department [facility]# [id number] [address] [place] [address] * XR CHEST PA OR AP (04/15/2008 [...] By: April Chaparro M.D. Date Signed: 04/15/08 [facility] Procedure Note April Chaparro MD [...] By: April Chaparro M.D. Date Signed: 04/15/08 [facility] Heriberto Carrera MD DIAGNOSTIC IMAGING ORDERABLES Fi nal Result * (ABNORMAL) COMPREHENSIVE METABOLIC PANEL (04/15/2008 3:17 AM CDT) CALCIUM 7.9(L) 8.4 - 10.5 mg/dL [facility] CREATININE 0.6(L) 0.7 - 1.2 mg/dL [facility] ALT 40(H) 4 - 36 IU/L [facility] GLUCOSE 106 70 - 110 mg/dL [facility] CHLORIDE 95 95 - 110 mEq/L [facility] OSMOLALITY, CALCULATED 285 275 - 295 mOsm/Kg [facility] ALKALINE PHOSPHATASE 102(H) 25 - 100 U/L [facility] GLOBULIN (CALC) 2.5 2.4 - 3.9 g/dL [facility] SODIUM 137 136 - 145 mEq/L [facility] BILIRUBIN TOTAL 4.3(H) 0.3 - 1.2 mg/dL [facility] Comment: slightly icteric TOTAL PROTEIN 4.5(L) 6.3 - 8.2 g/dL [facility] BUN 20(H) 7 - 17 mg/dL [facility] AST 73(H) 8 - 33 U/L [facility] CO2 36(H) 22 - 32 mmol/l [facility] ALBUMIN/GLOBULIN RATIO 0.8(L) 1.0 - 2.3 [facility] ALBUMIN 2.0(L) 3.5 - 5.0 g/dL [facility] POTASSIUM 3.7 3.5 - 5.0 mEq/L [facility] ANION GAP 10 9 - 20 mEq/L [facility] Blood specimen (specimen) 04/15/2008 3:17 AM CDT 04/15/2008 3:36 AM CDT us Petr Carrillo MD CHEMISTRY ORDERABLES Final Re sult INTERFACE SYSTEM Refer to clinic/hospital department [facility] CLIA# [id number] [address] [place] [address] * (ABNORMAL) CBC WITH DIFFERENTIAL (04/15/2008 3:17 AM CDT) NEUTROPHIL ABSOLUTE 15.2(H) 2.0 - 8.0 K/ul [facility] HEMATOCRIT 26.7(L) 36.0 - 46.0 % [facility] PLATELETS 428 140 - 440 K/ul [facility] EOSINOPHIL ABSOLUTE 0.2 0.0 - 0.7 K/ul [facility] EOSINOPHILS 0.8 0.0 - 7.0 % [facility] PERIPHERAL BLOOD SMEAR REVIEW Automated Diff [facility] RBC 3.02(L) 4.20 - 5.40 Mil/ul [facility] MCHC 32.2 30.0 - 35.0 g/dL [facility] LYMPHOCYTE ABSOLUTE 1.3 1.2 - 4.0 K/ul [facility] LYMPHOCYTES 7.4(L) 24.0 - 44.0 % [facility] MCV 88.4 84.0 - 103.0 Fl [facility] BASOPHILS 0.5 0.0 - 1.0 % [facility] MPV 10.1 8.9 - 12.8 Fl [facility] BASOPHILS ABSOLUTE 0.1 0.0 - 0.2 K/ul [facility] HEMOGLOBIN 8.6(L) 12.0 - 16.0 g/dL [facility] MONOCYTES 5.6 2.0 - 10.0 % [facility] RDW 16.7(H) 11.0 - 14.5 % [facility] MONOCYTE ABSOLUTE 1.0(H) 0.1 - 0.6 K/ul [facility] WBC 17.7(H) 4.5 - 11.0 K/ul [facility] NEUTROPHILS 85.7(H) 42.2 - 75.2 % [facility] MCH 28.5 27.0 - 34.0 pg [facility] Blood specimen (specimen) 04/15/2008 3:17 AM CDT 04/15/2008 3:40 AM CDT us Petr Carrillo MD HEMATOLOGY ORDERABLES Final R esult INTERFACE SYSTEM Refer to clinic/hospital department [facility]# [id number] [address] [place] [address] * XR CHEST PA OR AP (04/14/2008 [...] Ari Ly Jr., M.D. Date Signed: 04/14/08 [facility] Procedure Note Ari Ly Jr. [...] Ari Ly Jr., M.D. Date Signed: 04/14/08 [facility] us Riky Mejía MD DIAGNOSTIC IMAGING ORDERABL ES Final Result * (ABNORMAL) POC ISTAT EG 7+ (04/14/2008 3:23 AM CDT) SODIUM 134(L) 138 - 146 mEq/L [facility] PH 7.60(AA) 7.35 - 7.45 Unit [facility] PO2 TEMP CORRECT 92 80 - 105 mmHg [facility] O2 SATURATION 98 95 - 98 % [facility] SPECIMEN TYPE Arterial [facility] Comment: Test Performed By [id number] Critical result performed at the point of care. Pulse OX: 98 Hemoglobin calculated from Hematocrit result PCO2 TEMP CORRECT 41 35 - 45 mmHg [facility] POTASSIUM 3.9 3.5 - 4.9 mEq/L [facility] HEMOGLOBIN POC 10.9 +/-3 g/dL 12.0 - 16.0 g/dL [facility] PH TEMP CORRECT 7.60(AA) 7.35 - 7.45 Unit [facility] TCO2 (CALC) POC 41(H) 23 - 27 mmol/l [facility] HCO3 (CALC) POC 39.9(H) 22.0 - 26.0 mmol/l [facility] FIO2 45 [facility] HEMATOCRIT ABG 32(L) 38 - 51 % [facility] PO2 92 80 - 105 mmHg [facility] CALCIUM IONIZED 1.03(L) 1.12 - 1.32 mmol/l [facility] PCO2 POC 41 35 - 45 mmHg [facility] BASE EXCESS 18(H) -2 - 3 mmol/l [facility] Arterial blood specimen (specimen) 04/14/2008 3:23 AM CDT 04/14/2008 5:44 AM CDT us Riky Mejía MD POINT OF CARE TESTING COM F inal Result INTERFACE SYSTEM Refer to clinic/hospital department [facility] CLIA# [id number] [address] [place] [address] * (ABNORMAL) DIFFERENTIAL, MANUAL (04/14/2008 1:37 AM CDT) NEUTROPHILS, SEG 57 36 - 66 % [facility] METAMYELOCYTE 1 0 - 1 % [facility] POIKILOCYTES 1+(A) None Seen [facility] MONOCYTE 5 4 - 10 % [facility] RBC MORPHOLOGY Abnormal(A ) Normal [facility] BANDS 27(H) 0 - 6 % [facility] POLYCHROMASIA Present(A) None Seen [facility] MYELOCYTES 1 <=1 % [facility] EOSINOPHILS 1 0 - 3 % [facility] ANISOCYTOSIS 1+(A) None Seen [facility] LYMPHOCYTES 8(L) 24 - 44 % [facility] PLATELET EST. Normal Normal [facility] Comment: OCC PLATELET CLUMPS NOTED ON REVIEW OF SMEAR. Blood specimen (specimen) 04/14/2008 1:37 AM CDT 04/14/2008 1:40 AM CDT Narrative INTERFACE SYSTEM - 04/14/2008 2:01 AM CDT Differential ordered by policy. Riky Mejía MD HEMATOLOGY ORDERABLES COM F inal Result INTERFACE SYSTEM Refer to clinic/hospital department [facility] CLIA# [id number] [address] [place] [address] * (ABNORMAL) BASIC METABOLIC PANEL (04/14/2008 1:37 AM CDT) CALCIUM 8.1(L) 8.4 - 10.5 mg/dL [facility] GLUCOSE 108 70 - 110 mg/dL [facility] CHLORIDE 95 95 - 110 mEq/L [facility] ANION GAP 8(L) 9 - 20 mEq/L [facility] SODIUM 137 136 - 145 mEq/L [facility] BUN 26(H) 7 - 17 mg/dL [facility] CO2 38(H) 22 - 32 mmol/l [facility] POTASSIUM 4.1 3.5 - 5.0 mEq/L [facility] OSMOLALITY, CALCULATED 288 275 - 295 mOsm/Kg [facility] CREATININE 0.8 0.7 - 1.2 mg/dL [facility] Blood specimen (specimen) 04/14/2008 1:37 AM CDT 04/14/2008 1:40 AM CDT us Riky Mejía MD CHEMISTRY ORDERABLES Final Result Performing Organization Address [facility] Phone Number INTERFACE SYSTEM Refer to clinic/hospital department [facility] CLIA# [id number] [address] [place] [address] * (ABNORMAL) CBC WITH DIFFERENTIAL (04/14/2008 1:37 AM CDT) HEMATOCRIT 33.4(L) 36.0 - 46.0 % [facility] PLATELETS 429 140 - 440 K/ul [facility] RBC 3.77(L) 4.20 - 5.40 Mil/ul [facility] MCHC 33.2 30.0 - 35.0 g/dL [facility] MPV 10.1 8.9 - 12.8 Fl [facility] MCV 88.6 84.0 - 103.0 Fl [facility] HEMOGLOBIN 11.1(L) 12.0 - 16.0 g/dL [facility] RDW 16.4(H) 11.0 - 14.5 % [facility] WBC 16.6(H) 4.5 - 11.0 K/ul [facility] MCH 29.4 27.0 - 34.0 pg [facility] Blood specimen (specimen) 04/14/2008 1:37 AM CDT 04/14/2008 1:40 AM CDT us Riky Mejía MD HEMATOLOGY ORDERABLES Edite d Performing Organization Address [facility] de Phone Number INTERFACE SYSTEM Refer to clinic/hospital department [facility] CLIA# [id number] [address] [place] [phone] * LACTIC ACID (04/13/2008 9:12 PM CDT) LACTIC ACID 1.4 0.5 - 2.2 mEq/L [facility] Blood specimen (specimen) 04/13/2008 9:12 PM CDT 04/13/2008 9:18 PM CDT us Riky Mejía MD CHEMISTRY ORDERABLES Final Result INTERFACE SYSTEM Refer to clinic/hospital department [facility] CLIA# [id number] [facility] [place] [address] * (ABNORMAL) POC ISTAT EG 7+ (04/13/2008 8:41 PM CDT) Pathologist [facility] POTASSIUM 3.8 3.5 - 4.9 mEq/L [facility] PH TEMP CORRECT 7.51(H) 7.35 - 7.45 Unit [facility] HCO3 (CALC) POC 43.9(H) 22.0 - 26.0 mmol/l [facility] TCO2 (CALC) POC 46(H) 23 - 27 mmol/l [facility] FIO2 55 [facility] PO2 129(H) 80 - 105 mmHg [facility] CALCIUM IONIZED 1.05(L) 1.12 - 1.32 mmol/l [facility] HEMATOCRIT ABG 36(L) 38 - 51 % [facility] PCO2 POC 56(H) 35 - 45 mmHg [facility] SODIUM 135(L) 138 - 146 mEq/L [facility] BASE EXCESS 21(H) -2 - 3 mmol/l [facility] PH 7.51(H) 7.35 - 7.45 Unit [facility] O2 SATURATION 99(H) 95 - 98 % [facility] PO2 TEMP CORRECT 129(H) 80 - 105 mmHg [facility] SPECIMEN TYPE Arterial [facility] Comment: Test Performed By [id number] PEEP: 10 Rate: 12 Pulse OX: 100 Hemoglobin calculated from Hematocrit result PCO2 TEMP CORRECT 56(H) 35 - 45 mmHg [facility] HEMOGLOBIN POC 12.2 +/-3 g/dL 12.0 - 16.0 g/dL [facility] Arterial blood specimen (specimen) 04/13/2008 8:41 PM CDT 04/13/2008 8:44 PM CDT Riky Mejía MD POINT OF CARE TESTING COM F inal Result Performing Organization Address [facility] de Phone Number INTERFACE SYSTEM Refer to clinic/hospital department [facility] CLIA# [id number] [address] [place] [address] * (ABNORMAL) POC GLUCOSE (04/13/2008 8:33 PM CDT) GLUCOSE POC 115(H) 60 - 100 mg/dL [facility] Venous blood specimen (specimen) 04/13/2008 8:33 PM CDT 04/14/2008 5:56 AM CDT Riky Mejía MD POINT OF CARE TESTING Final Result Performing Organization Address [facility] de Phone Number INTERFACE SYSTEM Refer to clinic/hospital department [facility] CLIA# [id number] [address] [place] [address] * (ABNORMAL) BASIC METABOLIC PANEL (04/13/2008 7:58 PM CDT) GLUCOSE 118(H) 70 - 110 mg/dL [facility] CHLORIDE 94(L) 95 - 110 mEq/L [facility] ANION GAP <9 9 - 20 mEq/L [facility] SODIUM 139 136 - 145 mEq/L [facility] BUN 17 7 - 17 mg/dL [facility] CO2 >40(H) 22 - 32 mmol/l [facility] POTASSIUM 3.9 3.5 - 5.0 mEq/L [facility] OSMOLALITY, CALCULATED 288 275 - 295 mOsm/Kg [facility] CREATININE 0.5(L) 0.7 - 1.2 mg/dL [facility] CALCIUM 8.4 8.4 - 10.5 mg/dL [facility] Blood specimen (specimen) 04/13/2008 7:58 PM CDT 04/13/2008 8:01 PM CDT Riky Mejía MD CHEMISTRY ORDERABLES Final Result INTERFACE SYSTEM Refer to clinic/hospital department [facility] CLIA# [id number] [address] [place] [address] * (ABNORMAL) CBC WITH DIFFERENTIAL (04/13/2008 7:58 PM CDT) MCV 91.0 84.0 - 103.0 Fl [facility] MPV 10.3 8.9 - 12.8 Fl [facility] BASOPHILS ABSOLUTE 0.1 0.0 - 0.2 K/ul [facility] BASOPHILS 0.4 0.0 - 1.0 % [facility] HEMOGLOBIN 11.6(L) 12.0 - 16.0 g/dL [facility] RDW 16.6(H) 11.0 - 14.5 % [facility] MONOCYTE ABSOLUTE 0.7(H) 0.1 - 0.6 K/ul [facility] MONOCYTES 4.2 2.0 - 10.0 % [facility] WBC 16.1(H) 4.5 - 11.0 K/ul [facility] MCH 29.7 27.0 - 34.0 pg [facility] NEUTROPHIL ABSOLUTE 14.1(H) 2.0 - 8.0 K/ul [facility] NEUTROPHILS 87.4(H) 42.2 - 75.2 % [facility] HEMATOCRIT 35.6(L) 36.0 - 46.0 % [facility] EOSINOPHILS 0.9 0.0 - 7.0 % [facility] PLATELETS 430 140 - 440 K/ul [facility] EOSINOPHIL ABSOLUTE 0.1 0.0 - 0.7 K/ul [facility] RBC 3.91(L) 4.20 - 5.40 Mil/ul [facility] LYMPHOCYTES 7.1(L) 24.0 - 44.0 % [facility] MCHC 32.6 30.0 - 35.0 g/dL [facility] LYMPHOCYTE ABSOLUTE 1.1(L) 1.2 - 4.0 K/ul [facility] Blood specimen (specimen) 04/13/2008 7:58 PM CDT 04/13/2008 8:01 PM CDT us Riky Mejía MD HEMATOLOGY ORDERABLES Final Result Performing Organization Address City/State/[facility] Phone Number INTERFACE SYSTEM Refer to clinic/hospital department [facility]# [id number] [address] [place] [id number] * XR CHEST PA OR AP (04/13/2008 [...] radiopaque tubes and lines that overlie the [id number]. There is vascular congestion, and there is [...] radiopaque tubes and lines that overlie the [id number]. There is vascular congestion,and there is likely a right lower lobe infiltrate that obscures the right diaphragm. - Dictated By: Riky Jarvis M.D. Electronically Signed By: Riky Jarvis M.D. Date Signed: 04/13/08 Riky Mejía MD DIAGNOSTIC IMAGING ORDERABL ES Final Result * (ABNORMAL) POC ISTAT EG 7+ (04/13/2008 6:02 PM CDT) TEMPERATURE 37.9 DegC [facility] PO2 138(H) 80 - 105 mmHg [facility] CALCIUM IONIZED 1.06(L) 1.12 - 1.32 mmol/l [facility] HEMATOCRIT ABG 29(L) 38 - 51 % [facility] SPECIMEN TYPE Arterial [facility] Comment: Test Performed By [id number] Critical result performed at the point of care. Sample not collected by [facility] Hemoglobin calculated from Hematocrit result PCO2 POC 39 35 - 45 mmHg [facility] SODIUM 134(L) 138 - 146 mEq/L [facility] BASE EXCESS 27(H) -2 - 3 mmol/l [facility] PH 7.69(AA) 7.35 - 7.45 Unit [facility] O2 SATURATION 100(H) 95 - 98 % [facility] PO2 TEMP CORRECT 144(H) 80 - 105 mmHg [facility] FIO2 100 [facility] HEMOGLOBIN POC 9.9 +/-3 g/dL 12.0 - 16.0 g/dL [facility] PCO2 TEMP CORRECT 41 35 - 45 mmHg [facility] POTASSIUM 3.3(L) 3.5 - 4.9 mEq/L [facility] PH TEMP CORRECT 7.67(AA) 7.35 - 7.45 Unit [facility] HCO3 (CALC) POC 47.0(H) 22.0 - 26.0 mmol/l [facility] TCO2 (CALC) POC 48(H) 23 - 27 mmol/l [facility] Arterial blood specimen (specimen) 04/13/2008 6:02 PM CDT 04/13/2008 6:19 PM CDT Riky Mejía MD POINT OF CARE TESTING COM F inal Result Performing Organization Address [facility] de Phone Number INTERFACE SYSTEM Refer to clinic/hospital department [facility] CLIA# [id number] [address] [place] [address] * LACTIC ACID (04/13/2008 5:36 PM CDT) [facility] LACTIC ACID 1.5 0.5 - 2.2 mEq/L [facility] Blood specimen (specimen) 04/13/2008 5:36 PM CDT 04/13/2008 5:36 PM CDT Riky Mejía MD CHEMISTRY ORDERABLES Final Result Performing Organization Address [facility] Phone Number INTERFACE SYSTEM Refer to clinic/hospital department [facility] CLIA# [id number] Formerly [facility] [place] [address] * TYPE AND CROSSMATCH (04/13/2008 5:34 PM CDT) [facility] BLOOD BANK PRODUCT INTERFACE SYSTEM Blood specimen (specimen) 04/13/2008 5:34 PM CDT 04/13/2008 5:34 PM CDT Riky Mejía MD BLOOD BANK ORDERABLES Final Result Performing Organization Address [facility] de Phone Number INTERFACE SYSTEM Refer to clinic/hospital department * ANTIBODY SCREEN (04/13/2008 5:34 PM CDT) Pathologist [facility] ANTIBODY SCREEN Negative [facility] Blood specimen (specimen) 04/13/2008 5:34 PM CDT 04/13/2008 5:34 PM CDT iRky Mejía MD BLOOD BANK ORDERABLES Edite d Performing Organization Address [facility] de Phone Number INTERFACE SYSTEM Refer to clinic/hospital department [facility] CLIA# [id number] [address] [place] [address] * ABORH TYPING (04/13/2008 5:34 PM CDT) Pathologist [facility] ABO/RH TYPE O Positive [facility] Blood specimen (specimen) 04/13/2008 5:34 PM CDT 04/13/2008 5:34 PM CDT us Riky Mejía MD BLOOD BANK ORDERABLES Final Result Performing Organization Address [facility] Phone Number INTERFACE SYSTEM Refer to clinic/hospital department [facility] CLIA# [id number] [address] [place] [address] * (ABNORMAL) BASIC METABOLIC PANEL (04/13/2008 5:29 PM CDT) CREATININE 0.6(L) 0.7 - 1.2 mg/dL [facility] CALCIUM 8.4 8.4 - 10.5 mg/dL [facility] GLUCOSE 118(H) 70 - 110 mg/dL [facility] CHLORIDE 91(L) 95 - 110 mEq/L [facility] SODIUM 141 136 - 145 mEq/L [facility] ANION GAP <14 9 - 20 mEq/L [facility] BUN 16 7 - 17 mg/dL [facility] CO2 >40(H) 22 - 32 mmol/l [facility] OSMOLALITY, CALCULATED 291 275 - 295 mOsm/Kg [facility] POTASSIUM 3.7 3.5 - 5.0 mEq/L [facility] Blood specimen (specimen) 04/13/2008 5:29 PM CDT 04/13/2008 5:30 PM CDT Narrative INTERFACE SYSTEM - 04/13/2008 6:20 PM CDT OR 9 us Riky Mejía MD CHEMISTRY ORDERABLES Final Result INTERFACE SYSTEM Refer to clinic/hospital department [facility] CLIA# [id number] [address] [place] [address] * PT AND APTT (04/13/2008 5:29 PM CDT) INR 1.1 [facility] Comment: Expected Values for INR: DVT/PE Goal INR 2.5; range 2.0 - 3.0 Valve Replacement Tissue Goal INR 2.5; range 2.0 - 3.0 Mechanical Goal INR 3.0; range 2.5 - 3.5 POST-UT Goal INR 2.5; range 2.0 - 3.0 or Goal 3.0; range 2.5 - 3.5 Atrial Fibrillation Goal INR 2.5; range 2.0 - 3.0 Ischemic Stroke Goal INR 2.5; range 2.0 - 3.0 For additional information see Guidelines for Anticoagulation available from the pharmacy Jolene Ramirez Pharm D. [phone] PTT 33.1 22.5 - 36.5 Secs [facility] Comment: Therapeutic Range: Hi-level PE/DVT heparin protocol 80.1 -95.0 sec Lo-level PE/DVT heparin protocol 67.1 - 80.0 sec Cardiac Heparin Protocol 67.1 - 85.0 sec Neuro Heparin Protocol 67.1 - 80.0 sec As of 09/25/2007 note change in APTT Normal Range. PROTIME 15.3 12.8 - 15.8 Secs [facility] Comment:As of 2007 not e change in normal range. Blood specimen (specimen) 04/13/2008 5:29 PM CDT 04/13/2008 5:30 PM CDT Narrative INTERFACE SYSTEM - 04/13/2008 5:48 PM CDT OR 9 us Riky Mejía MD HEMATOLOGY ORDERABLES Edite d INTERFACE SYSTEM Refer to clinic/hospital department [facility] CLIA# [id number] Formerly [facility] [place] [address] * (ABNORMAL) CBC WITH DIFFERENTIAL (04/13/2008 5:29 PM CDT) MCV 90.1 84.0 - 103.0 Fl [facility] BASOPHILS 0.3 0.0 - 1.0 % [facility] MPV 10.2 8.9 - 12.8 Fl [facility] BASOPHILS ABSOLUTE 0.0 0.0 - 0.2 K/ul [facility] HEMOGLOBIN 9.4(L) 12.0 - 16.0 g/dL [facility] MONOCYTES 4.3 2.0 - 10.0 % [facility] RDW 17.1(H) 11.0 - 14.5 % [facility] MONOCYTE ABSOLUTE 0.5 0.1 - 0.6 K/ul [facility] WBC 11.8(H) 4.5 - 11.0 K/ul [facility] NEUTROPHILS 81.9(H) 42.2 - 75.2 % [facility] MCH 29.0 27.0 - 34.0 pg [facility] NEUTROPHIL ABSOLUTE 9.7(H) 2.0 - 8.0 K/ul [facility] HEMATOCRIT 29.2(L) 36.0 - 46.0 % [facility] PLATELETS 414 140 - 440 K/ul [facility] EOSINOPHIL ABSOLUTE 0.2 0.0 - 0.7 K/ul [facility] EOSINOPHILS 1.4 0.0 - 7.0 % [facility] RBC 3.24(L) 4.20 - 5.40 Mil/ul [facility] MCHC 32.2 30.0 - 35.0 g/dL [facility] LYMPHOCYTE ABSOLUTE 1.4 1.2 - 4.0 K/ul [facility] LYMPHOCYTES 12.1(L) 24.0 - 44.0 % [facility] Blood specimen (specimen) 04/13/2008 5:29 PM CDT 04/13/2008 5:29 PM CDT Narrative INTERFACE SYSTEM - 04/13/2008 5:35 PM CDT OR 9 us Riky Mejía MD HEMATOLOGY ORDERABLES Final Result INTERFACE SYSTEM Refer to clinic/hospital department [facility] CLIA# [id number] [address] [place] [address] * (ABNORMAL) POC ISTAT EG 7+ (04/13/2008 5:26 PM CDT) PH 7.68(AA) 7.35 - 7.45 Unit [facility] O2 SATURATION 100(H) 95 - 98 % [facility] PO2 TEMP CORRECT 174(H) 80 - 105 mmHg [facility] FIO2 100 [facility] HEMOGLOBIN POC 9.5 +/-3 g/dL 12.0 - 16.0 g/dL [facility] PCO2 TEMP CORRECT 47(H) 35 - 45 mmHg [facility] POTASSIUM 3.5 3.5 - 4.9 mEq/L [facility] PH TEMP CORRECT 7.67(AA) 7.35 - 7.45 Unit [facility] HCO3 (CALC) POC 53.2(H) 22.0 - 26.0 mmol/l [facility] TCO2 (CALC) POC >50(H) 23 - 27 mmol/l [facility] TEMPERATURE 37.8 DegC [facility] PO2 170(H) 80 - 105 mmHg [facility] CALCIUM IONIZED 0.95(L) 1.12 - 1.32 mmol/l [facility] HEMATOCRIT ABG 28(L) 38 - 51 % [facility] SPECIMEN TYPE Arterial [facility] Comment: Test Performed By [id number] Critical result performed at the point of care. Sample not collected by [facility] Hemoglobin calculated from Hematocrit result PCO2 POC 45 35 - 45 mmHg [facility] SODIUM 135(L) 138 - 146 mEq/L [facility] BASE EXCESS >30(H) -2 - 3 mmol/l [facility] Arterial blood specimen (specimen) 04/13/2008 5:26 PM CDT 04/13/2008 5:34 PM CDT Riky Mejía MD POINT OF CARE TESTING COM F inal Result Performing Organization Address [facility] Co de Phone Number INTERFACE SYSTEM Refer to clinic/hospital department [facility] CLIA# [id number] [address] [place] [address] * MRSA CULTURE (04/13/2008 4:30 PM CDT) FINAL REPORT Culture screen for MRSA negative INTERFACE SYSTEM 04/13/2008 4:30 PM CDT 04/13/2008 6:57 PM CDT Riky Mejía MD MICROBIOLOGY - GENERAL ORDE RABLES Final Result Performing Organization Address [facility] de Phone Number INTERFACE SYSTEM Refer to clinic/hospital department documented in this encounter Visit Diagnoses Not on filedocumented in this encounter Additional Health Concerns Infection Onset Date Last Indicated Resolved Time MRSA Comment:Kapil 10/26/15 10/27/2015 10/27/2015 documented as of this encounter Care Teams Fingerer Relationship Specialty Start Date End Date Jose Bowers MD [address] [place] [address] PCP - General 12/31/05 documented as of this encounter
--- OUTSIDE RECORDS SUMMARY | 2025-03-04 15:15 | XMS_ITS | Encounter Summary ---
Author Organization [facility] Address [address] [place] [address] Care Team Providers Care Transportation Supervisor Name Role Phone Jose Bowers MD Primary Care Provider Unavailab le Encounter Details Date Type Department Care Team (Late st Contact Info) Description 04/15/2006 Outpatient Historical [facility] Physical Med and Rehab- [place] [address] [place] [phone] Jose Bowers MD [address] [place] [address] Paraplegia (CMS/HCC) (Primary Dx) Social History Tobacco Use Types Packs/Day Years Used Date Smoking Tobacco: Never Assessed Comments Unknown Sex and Gender Information Value Date Recorded Sex Assigned at Not on file 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
--- OUTSIDE RECORDS SUMMARY | 2025-03-04 15:15 | XMS_ITS | Encounter Summary ---
Author Organization [facility] Address [address] [place] [address] Care Team Providers Care Staff Trainer Name Role Phone Jose Bowers MD Primary Care Provider Unavailab le Encounter Details Date Type Department Care Team (Latest Contact Info) Description 07/24/2006 Outpatient Historical [facility] [address] 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
--- OUTSIDE RECORDS SUMMARY | 2025-03-04 15:15 | XMS_ITS | Encounter Summary ---
Author Organization [facility] Address [address] [place] [address] Care Team Providers Care Deputy Editor In Chief Name Role Phone Jose Bowers MD Primary Care Provider Unavailab le Encounter Details Date Type Department Care Team (Late st Contact Info) Description 02/14/2006 Outpatient Historical [facility] Physical Med and Rehab- [place] [address] [place] [phone] Jose Bowers MD [address] [place] [address] Paraplegia (CMS/HCC) (Primary Dx) Social History Tobacco Use Types Packs/Day Years Used Date Smoking Tobacco: Never Assessed Comments Unknown Sex and Gender Information Value Date Recorded Sex Assigned at Not on file 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
--- OUTSIDE RECORDS SUMMARY | 2025-03-04 15:15 | XMS_ITS | Encounter Summary ---
Author Organization [facility] Address [address] [place] [address] Care Team Providers Care Service Consultant Name Role Phone Jose Bowers MD Primary Care Provider Unavailab le Encounter Details Date Type Department Care Team (Late st Contact Info) Description 08/30/2006 Outpatient Historical [facility] Physical Med and Rehab- [place] [id number] [place] [phone] Jose Bowers MD [address] [place] [address] Pain in Joint, Pelvic Region and Thigh (Primary Dx); Pain in Limb; Paraplegia (CMS/HCC) Social History Tobacco Use Types Packs/Day Years Used Date Smoking Tobacco: Never Assessed Comments Unknown Sex and Gender Information Value Date Recorded Sex Assigned at Not on file 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 Gender Identity Not on file Sexual Orientation Not on file documented as of this encounter Plan of Treatment Not on file documented as of this encounter Procedures Procedure Name Priority Date/Time Associated Diagnosis Comments XR PELVIS 3+ VW Routine 08/30/2006 12:33 PM CHAINSTITCH SEWING MACHINE OPERATOR documented in this encounter Results * XR PELVIS 3+ VW (08/30/2006 12:33 PM CHAINSTITCH SEWING MACHINE OPERATOR) Anatomical Region Laterality Modality Pelvis Other 08/30/2006 12:3 3 PM CHAINSTITCH SEWING MACHINE OPERATOR Narrative 08/30/2006 12:33 PM CHAINSTITCH SEWING MACHINE OPERATOR PELVIS AND RIGHT HIP: TECHNIQUE: Two views [...] documented as of this encounter Care Teams Service Consultant Relationship Specialty Start Date End Date Jose Bowers MD [address] [place] [address] PCP - General 12/31/05 documented as of this encounter
--- OUTSIDE RECORDS SUMMARY | 2025-03-04 15:15 | XMS_ITS | Clinical Summary ---
Author Organization [facility] Address [address] [facility] Attn: [place] [address] Care Team Providers Care Team Truck Driver Name Role Phone Jose Bowers MD [...] on file Legal Sex Female 3:00 AM GANG WORKER Gender Identity Not on file Sexual Orientation [...] MRSA Comment:Kapil 10/26/15 10/27/2015 10/27/2015 Insurance MEDICAID [place] Care Teams Team Truck Driver Relationship Specialty Start Date End Date Jose Bowers MD [address] [place] [address] PCP - General 12/31/05
--- OUTSIDE RECORDS SUMMARY | 2025-03-04 15:15 | XMS_ITS | Encounter Summary ---
Author Organization [facility] Address [address] [place] [address] Care Team Providers Care Casting Carrier Name Role Phone Jose Bowers MD Primary Care Provider Unavailab le Encounter Details Date Type Department Care Team (Latest Contact Info) Description 02/05/2005 Outpatient Historical [facility] Acute Therapy Services [address] [place] [phone] Morenita Muñiz MD [address] [place] [address] ADMINISTRTVE ENCOUNT NOS (Primary Dx) Social History Tobacco Use Types Packs/Day Years Used Date Smoking Tobacco: Never Assessed Comments Unknown Sex and Gender Information Value Date Recorded Sex Assigned at Not on file 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 Sex Female 6:28 AM CORE WINDING OPERATOR Gender Identity Not on file Sexual Orientation Not on file documented as of this encounter Plan of Treatment Not on file documented as of this encounter Visit Diagnoses Diagnosis Encounters for unspecified administrative purpose- Primary documented in this encounter Additional Health Concerns Infection Onset Date Last Indicated Resolved Time MRSA Comment:Kapil 10/26/15 10/27/2015 10/27/2015 documented as of this encounter Care Teams Casting Carrier Relationship Specialty Start Date End Date Jose Bowers MD [address] [place] [address] PCP - General 12/31/05 documented as of this encounter
--- OUTSIDE RECORDS SUMMARY | 2025-03-04 15:15 | XMS_ITS | Clinical Summary ---
Author Organization [facility] Address [address] [place] [address] Care Team Providers Care Customer Energy Specialist Name Role Phone Jose Bowers MD [...] on file Legal Sex Female 6:28 AM TRENCHING MACHINE OPERATOR Gender Identity Not on file [...] AND B MEDICAID [place] [employer] , [address] [address] Advance Directives For more information, please contact: [phone] * Full Code (Latest Code Status on File) Date Activated Date Inactivated Comments 10/26/2015 6:24 AM 10/28/2015 4:22 PM Care Teams Customer Energy Specialist Relationship Specialty Start Date End Date Jose Bowers MD [address] [place] [address] PCP - General 12/31/05
--- OUTSIDE RECORDS SUMMARY | 2025-03-04 15:15 | XMS_ITS | Encounter Summary ---
Author Organization [facility] Address [address] [place] [address] Care Team Providers Care Lang Interpreter Name Role Phone Jose Bowers MD Primary Care Provider Unavailab le Encounter Details Date Type Department Care Team (Late st Contact Info) Description 07/24/2006 Outpatient Historical [facility] Physical Med and Rehab- [place] [address] [place] [phone] Jose Bowers MD [address] [place] [address] Paraplegia (CMS/HCC) (Primary Dx); Difficulty in Walking; Pain in Limb Social History Tobacco Use Types Packs/Day Years Used Date Smoking Tobacco: Never Assessed Comments Unknown Sex and Gender Information Value Date Recorded Sex Assigned at Not on file 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
--- OUTSIDE RECORDS SUMMARY | 2025-03-04 15:15 | XMS_ITS | Encounter Summary ---
Author Organization [facility] Address [address] [place] [address] Care Team Providers Care Seafood Process Worker Name Role Phone Jose Bowers MD Primary Care Provider Unavailab le Encounter Details Date Type Department Care Team (Late st Contact Info) Description 10/02/[address] 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
--- OUTSIDE RECORDS SUMMARY | 2025-03-04 15:15 | XMS_ITS | Encounter Summary ---
Author Organization [facility] Address [address] [place] [address] Care Team Providers Care It Security Analyst Name Role Phone Jose Bowers MD Primary Care Provider Unavail le Encounter Details Date Type Department Care Team (Late st Contact Info) Description 12/31/2006 Outpatient Historical [facility] Jose Bowers MD [address] [place] [address] Pain in Soft Tissues of Limb (Primary Dx) Social History Tobacco Use Types Packs/Day Years Used Date Smoking Tobacco: Never Assessed Comments Unknown Sex and Gender Information Value Date Recorded Sex Assigned at Not on file 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
--- OUTSIDE RECORDS SUMMARY | 2025-03-04 15:15 | XMS_ITS | Encounter Summary ---
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 Gender Identity Not on file Sexual Orientation [...] GLUCOSE POC 109(H) 60 - 100 mg/dL [facility] Venous blood specimen (specimen) 04/08/2008 4:10 PM CDT 04/09/2008 7:42 AM CDT Riky Mejía MD POINT OF CARE TESTING Final Result Performing Organization Address City/State/[facility] Co de Phone Number INTERFACE SYSTEM Refer to clinic/hospital department [facility] CLIA# [id number] [facility] [place] [address] * (ABNORMAL) POC GLUCOSE (04/08/2008 11:00 AM CDT) GLUCOSE POC 122(H) 60 - 100 mg/dL [facility] Venous blood specimen (specimen) 04/08/2008 11:00 AM CDT 04/09/2008 7:42 AM CDT us Riky Mejía MD POINT OF CARE TESTING Final Result Performing Organization Address [facility] de Phone Number INTERFACE SYSTEM Refer to clinic/hospital department [facility] CLIA# [id number] [address] [place] [address] * (ABNORMAL) POC GLUCOSE (04/08/2008 5:12 AM CDT) GLUCOSE POC 124(H) 60 - 100 mg/dL [facility] Venous blood specimen (specimen) 04/08/2008 5:12 AM CDT 04/08/2008 7:16 AM CDT Riky Mejía MD POINT OF CARE TESTING Final Result Performing Organization Address [facility] de Phone Number INTERFACE SYSTEM Refer to clinic/hospital department [facility] CLIA# [id number] [address] [place] [address] * (ABNORMAL) BASIC METABOLIC PANEL (04/08/2008 4:30 AM CDT) POTASSIUM 4.2 3.5 - 5.0 mEq/L [facility] OSMOLALITY, CALCULATED 284 275 - 295 mOsm/Kg [facility] CREATININE 0.5(L) 0.7 - 1.2 mg/dL [facility] CALCIUM 8.4 8.4 - 10.5 mg/dL [facility] GLUCOSE 141(H) 70 - 110 mg/dL [facility] CHLORIDE 102 95 - 110 mEq/L [facility] ANION GAP 9 9 - 20 mEq/L [facility] SODIUM 137 136 - 145 mEq/L [facility] BUN 11 7 - 17 mg/dL [facility] CO2 30 22 - 32 mmol/l [facility] Blood specimen (specimen) 04/08/2008 4:30 AM CDT 04/08/2008 4:30 AM CDT Riky Mejía MD CHEMISTRY ORDERABLES Final Result INTERFACE SYSTEM Refer to clinic/hospital department [facility] CLIA# [id number] [facility] [place] [address] * (ABNORMAL) CBC WITH DIFFERENTIAL (04/08/2008 4:30 AM CDT) MCV 90.8 84.0 - 103.0 Fl [facility] BASOPHILS 0.2 0.0 - 1.0 % [facility] MPV 10.7 8.9 - 12.8 Fl [facility] BASOPHILS ABSOLUTE 0.0 0.0 - 0.2 K/ul [facility] HEMOGLOBIN 10.6(L) 12.0 - 16.0 g/dL [facility] MONOCYTES 8.0 2.0 - 10.0 % [facility] RDW 16.8(H) 11.0 - 14.5 % [facility] MONOCYTE ABSOLUTE 1.0(H) 0.1 - 0.6 K/ul [facility] WBC 12.7(H) 4.5 - 11.0 K/ul [facility] NEUTROPHILS 86.4(H) 42.2 - 75.2 % [facility] MCH 29.4 27.0 - 34.0 pg [facility] NEUTROPHIL ABSOLUTE 10.9(H) 2.0 - 8.0 K/ul [facility] HEMATOCRIT 32.7(L) 36.0 - 46.0 % [facility] PLATELETS 149 140 - 440 K/ul [facility] EOSINOPHIL ABSOLUTE 0.1 0.0 - 0.7 K/ul [facility] EOSINOPHILS 0.7 0.0 - 7.0 % [facility] RBC 3.60(L) 4.20 - 5.40 Mil/ul [facility] MCHC 32.4 30.0 - 35.0 g/dL [facility] LYMPHOCYTE ABSOLUTE 0.6(L) 1.2 - 4.0 K/ul [facility] LYMPHOCYTES 4.7(L) 24.0 - 44.0 % [facility] Blood specimen (specimen) 04/08/2008 4:30 AM CDT 04/08/2008 4:30 AM CDT us Riky Mejía MD HEMATOLOGY ORDERABLES Final Result Performing Organization Address City/[facility] de Phone Number INTERFACE SYSTEM Refer to clinic/hospital department [facility] CLIA# [id number] [facility] [place] [address] * BLOOD CULTURE (04/07/2008 9:56 PM CDT) FINAL REPORT No growth INTERFA CE SYSTEM Blood specimen (specimen) 04/07/2008 9:56 PM CDT 04/07/2008 9:56 PM CDT us Riky Mejía MD MICROBIOLOGY - GENERAL [place] ATKINSON Final Result Performing Organization Address [facility] de Phone Number INTERFACE SYSTEM Refer to clinic/hospital department * BLOOD CULTURE (04/07/2008 9:56 PM CDT) FINAL REPORT No growth INTERFA CE SYSTEM Blood specimen (specimen) 04/07/2008 9:56 PM CDT 04/07/2008 9:56 PM CDT us Riky Mejía MD MICROBIOLOGY - GENERAL [place] ATKINSON Final Result Performing Organization Address [facility] de Phone Number INTERFACE SYSTEM Refer to clinic/hospital department * (ABNORMAL) POC GLUCOSE (04/07/2008 8:36 PM CDT) GLUCOSE POC 159(H) 60 - 100 mg/dL [facility] Venous blood specimen (specimen) 04/07/2008 8:36 PM CDT 04/08/2008 7:22 AM CDT us Riky Mejía MD POINT OF CARE TESTING Final Result Performing Organization Address City/[facility] de Phone Number INTERFACE SYSTEM Refer to clinic/hospital department [facility] CLIA# [id number] [address] [place] [address] * (ABNORMAL) POC GLUCOSE (04/07/2008 5:39 PM CDT) GLUCOSE POC 122(H) 60 - 100 mg/dL [facility] Venous blood specimen (specimen) 04/07/2008 5:39 PM CDT 04/08/2008 7:16 AM CDT Riky Mejía MD POINT OF CARE TESTING Final Result Performing Organization Address [facility] de Phone Number INTERFACE SYSTEM Refer to clinic/hospital department [facility] CLIA# [id number] [address] [place] [address] * (ABNORMAL) POC ISTAT EG 7+ (04/07/2008 4:27 PM CDT) FIO2 4 [facility] PO2 67(L) 80 - 105 mmHg [facility] CALCIUM IONIZED 1.15 1.12 - 1.32 mmol/l [facility] HEMATOCRIT ABG 32(L) 38 - 51 % [facility] PCO2 POC 45 35 - 45 mmHg [facility] SODIUM 137(L) 138 - 146 mEq/L [facility] BASE EXCESS 7(H) -2 - 3 mmol/l [facility] PH 7.45 7.35 - 7.45 Unit [facility] O2 SATURATION 94(L) 95 - 98 % [facility] PO2 TEMP CORRECT 67(L) 80 - 105 mmHg [facility] SPECIMEN TYPE Arterial [facility] Comment: Test Performed By [id number] Pulse OX: 99 Hemoglobin calculated from Hematocrit result PCO2 TEMP CORRECT 45 35 - 45 mmHg [facility] HEMOGLOBIN POC 10.9 +/-3 g/dL 12.0 - 16.0 g/dL [facility] POTASSIUM 4.0 3.5 - 4.9 mEq/L [facility] PH TEMP CORRECT 7.45 7.35 - 7.45 Unit [facility] HCO3 (CALC) POC 31.1(H) 22.0 - 26.0 mmol/l [facility] TCO2 (CALC) POC 32(H) 23 - 27 mmol/l [facility] Arterial blood specimen (specimen) 04/07/2008 4:27 PM CDT 04/07/2008 4:30 PM CDT Riky Mejía MD POINT OF CARE TESTING COM F inal Result Performing Organization Address [facility] de Phone Number INTERFACE SYSTEM Refer to clinic/hospital department [facility] CLIA# [id number] [address] [place] [address] * (ABNORMAL) POC GLUCOSE (04/07/2008 11:30 AM CDT) GLUCOSE POC 108(H) 60 - 100 mg/dL [facility] Venous blood specimen (specimen) 04/07/2008 11:30 AM CDT 04/08/2008 7:16 AM CDT Riky Mejía MD POINT OF CARE TESTING Final Result Performing Organization Address [facility] de Phone Number INTERFACE SYSTEM Refer to clinic/hospital department [facility] CLIA# [id number] [address] [place] [address] * (ABNORMAL) POC GLUCOSE (04/07/2008 5:02 AM CDT) GLUCOSE POC 138(H) 60 - 100 mg/dL [facility] Venous blood specimen (specimen) 04/07/2008 5:02 AM CDT 04/07/2008 7:10 AM CDT Riky Mejía MD POINT OF CARE TESTING Final Result INTERFACE SYSTEM Refer to clinic/hospital department [facility] CLIA# [id number] [address] [place] [address] * (ABNORMAL) CBC WITH DIFFERENTIAL (04/07/2008 3:13 AM CDT) HEMATOCRIT 30.3(L) 36.0 - 46.0 % [facility] EOSINOPHILS 1.6 0.0 - 7.0 % [facility] PLATELETS 140 140 - 440 K/ul [facility] PERIPHERAL BLOOD SMEAR REVIEW Automated Diff [facility] EOSINOPHIL ABSOLUTE 0.2 0.0 - 0.7 K/ul [facility] RBC 3.33(L) 4.20 - 5.40 Mil/ul [facility] LYMPHOCYTES 6.7(L) 24.0 - 44.0 % [facility] MCHC 32.3 30.0 - 35.0 g/dL [facility] LYMPHOCYTE ABSOLUTE 0.8(L) 1.2 - 4.0 K/ul [facility] MCV 91.0 84.0 - 103.0 Fl [facility] MPV 11.6 8.9 - 12.8 Fl [facility] BASOPHILS ABSOLUTE 0.0 0.0 - 0.2 K/ul [facility] BASOPHILS 0.2 0.0 - 1.0 % [facility] HEMOGLOBIN 9.8(L) 12.0 - 16.0 g/dL [facility] RDW 16.9(H) 11.0 - 14.5 % [facility] MONOCYTE ABSOLUTE 1.1(H) 0.1 - 0.6 K/ul [facility] MONOCYTES 9.4 2.0 - 10.0 % [facility] WBC 11.7(H) 4.5 - 11.0 K/ul [facility] MCH 29.4 27.0 - 34.0 pg [facility] NEUTROPHIL ABSOLUTE 9.6(H) 2.0 - 8.0 K/ul [facility] NEUTROPHILS 82.1(H) 42.2 - 75.2 % [facility] Blood specimen (specimen) 04/07/2008 3:13 AM CDT 04/07/2008 3:19 AM CDT us Riky Mejía MD HEMATOLOGY ORDERABLES Final Result Performing Organization Address City/[facility] Phone Number INTERFACE SYSTEM Refer to clinic/hospital department [facility] CLIA# [id number] [address] [place] [address] * (ABNORMAL) BASIC METABOLIC PANEL (04/07/2008 3:13 AM CDT) [facility] OSMOLALITY, CALCULATED 291 275 - 295 mOsm/Kg [facility] POTASSIUM 4.1 3.5 - 5.0 mEq/L [facility] CREATININE 0.6(L) 0.7 - 1.2 mg/dL [facility] CALCIUM 8.6 8.4 - 10.5 mg/dL [facility] GLUCOSE 141(H) 70 - 110 mg/dL [facility] CHLORIDE 105 95 - 110 mEq/L [facility] SODIUM 140 136 - 145 mEq/L [facility] ANION GAP 7(L) 9 - 20 mEq/L [facility] BUN 14 7 - 17 mg/dL [facility] CO2 32 22 - 32 mmol/l [facility] Blood specimen (specimen) 04/07/2008 3:13 AM CDT 04/07/2008 3:19 AM CDT us Riky Mejía MD CHEMISTRY ORDERABLES Final Result Performing Organization Address [facility] de Phone Number INTERFACE SYSTEM Refer to clinic/hospital department [facility] CLIA# [id number] [address] [place] [address] * (ABNORMAL) POC GLUCOSE (04/06/2008 8:09 PM CDT) [facility] GLUCOSE POC 118(H) 60 - 100 mg/dL [facility] Venous blood specimen (specimen) 04/06/2008 8:09 PM CDT 04/07/2008 7:13 AM CDT Riky Mejía MD POINT OF CARE TESTING Final Result Performing Organization Address [facility] Phone Number INTERFACE SYSTEM Refer to clinic/hospital department [facility] CLIA# [id number] [address] [place] [address] * (ABNORMAL) POC GLUCOSE (04/06/2008 5:03 PM CDT) GLUCOSE POC 131(H) 60 - 100 mg/dL [facility] Venous blood specimen (specimen) 04/06/2008 5:03 PM CDT 04/07/2008 7:10 AM CDT Riky Mejía MD POINT OF CARE TESTING Final Result Performing Organization Address [facility] Phone Number INTERFACE SYSTEM Refer to clinic/hospital department [facility] CLIA# [id number] [address] [place] [address] * (ABNORMAL) POC GLUCOSE (04/06/2008 10:59 AM CDT) GLUCOSE POC 128(H) 60 - 100 mg/dL [facility] Venous blood specimen (specimen) 04/06/2008 10:59 AM CDT 04/07/2008 7:10 AM CDT Riky Mejía MD POINT OF CARE TESTING Final Result Performing Organization Address [facility] de Phone Number INTERFACE SYSTEM Refer to clinic/hospital department [facility] CLIA# [id number] [address] [place] [address] * XR CHEST PA OR AP (04/06/2008 [...] GLUCOSE POC 126(H) 60 - 100 mg/dL [facility] Venous blood specimen (specimen) 04/06/2008 6:02 AM CDT 04/06/2008 7:01 AM CDT Riky Mejía MD POINT OF CARE TESTING Final Result INTERFACE SYSTEM Refer to clinic/hospital department [facility] CLIA# [id number] [address] [place] [address] * (ABNORMAL) CBC WITH DIFFERENTIAL (04/06/2008 3:55 AM CDT) NEUTROPHILS 81.1(H) 42.2 - 75.2 % [facility] MCH 29.1 27.0 - 34.0 pg [facility] NEUTROPHIL ABSOLUTE 8.9(H) 2.0 - 8.0 K/ul [facility] HEMATOCRIT 31.3(L) 36.0 - 46.0 % [facility] PLATELETS 122(L) 140 - 440 K/ul [facility] EOSINOPHIL ABSOLUTE 0.3 0.0 - 0.7 K/ul [facility] EOSINOPHILS 3.1 0.0 - 7.0 % [facility] RBC 3.47(L) 4.20 - 5.40 Mil/ul [facility] MCHC 32.3 30.0 - 35.0 g/dL [facility] LYMPHOCYTE ABSOLUTE 0.9(L) 1.2 - 4.0 K/ul [facility] LYMPHOCYTES 8.4(L) 24.0 - 44.0 % [facility] MCV 90.2 84.0 - 103.0 Fl [facility] BASOPHILS 0.2 0.0 - 1.0 % [facility] MPV 11.8 8.9 - 12.8 Fl [facility] BASOPHILS ABSOLUTE 0.0 0.0 - 0.2 K/ul [facility] HEMOGLOBIN 10.1(L) 12.0 - 16.0 g/dL [facility] MONOCYTES 7.2 2.0 - 10.0 % [facility] RDW 17.0(H) 11.0 - 14.5 % [facility] MONOCYTE ABSOLUTE 0.8(H) 0.1 - 0.6 K/ul [facility] WBC 11.0 4.5 - 11.0 K/ul [facility] Blood specimen (specimen) 04/06/2008 3:55 AM CDT 04/06/2008 4:00 AM CDT Marquis Scott MD HEMATOLOGY ORDERABLES Final Res ult INTERFACE SYSTEM Refer to clinic/hospital department [facility] CLIA# [id number] [facility] [place] [address] * (ABNORMAL) RENAL FUNCTION PANEL (04/06/2008 3:55 AM CDT) GLUCOSE 218(H) 70 - 110 mg/dL [facility] OSMOLALITY, CALCULATED 295 275 - 295 mOsm/Kg [facility] CHLORIDE 106 95 - 110 mEq/L [facility] ALBUMIN 3.0(L) 3.5 - 5.0 g/dL [facility] SODIUM 138 136 - 145 mEq/L [facility] BUN 22(H) 7 - 17 mg/dL [facility] CO2 30 22 - 32 mmol/l [facility] PHOSPHORUS 2.0(L) 2.5 - 4.6 mg/dL [facility] POTASSIUM 4.7 3.5 - 5.0 mEq/L [facility] ANION GAP 7(L) 9 - 20 mEq/L [facility] CREATININE 0.6(L) 0.7 - 1.2 mg/dL [facility] CALCIUM 8.2(L) 8.4 - 10.5 mg/dL [facility] Blood specimen (specimen) 04/06/2008 3:55 AM CDT 04/06/2008 4:00 AM CDT Marquis Scott MD CHEMISTRY ORDERABLES Final Resu lt Performing Organization Address City/[facility] Co de Phone Number INTERFACE SYSTEM Refer to clinic/hospital department [facility] CLIA# [id number] [address] [place] [address] * (ABNORMAL) POC GLUCOSE (04/05/2008 8:20 PM CDT) GLUCOSE POC 114(H) 60 - 100 mg/dL [facility] Venous blood specimen (specimen) 04/05/2008 8:20 PM CDT 04/06/2008 7:01 AM CDT us Riky Mejía MD POINT OF CARE TESTING Final Result Performing Organization Address [facility] Phone Number INTERFACE SYSTEM Refer to clinic/hospital department [facility] CLIA# [id number] [address] [place] [address] * (ABNORMAL) POC GLUCOSE (04/05/2008 4:50 PM CDT) GLUCOSE POC 118(H) 60 - 100 mg/dL [facility] Venous blood specimen (specimen) 04/05/2008 4:50 PM CDT 04/06/2008 7:01 AM CDT us Riky Mejía MD POINT OF CARE TESTING Final Result Performing Organization Address [facility] Phone Number INTERFACE SYSTEM Refer to clinic/hospital department [facility] CLIA# [id number] [address] [place] [address] * IV CATHETER CULTURE (04/05/2008 4:00 PM CDT) FINAL REPORT No growth INTERFA CE SYSTEM 04/05/2008 4:0 0 PM CDT 04/05/2008 4:00 PM CDT us Riky Mejía MD MICROBIOLOGY - GENERAL [place]ERVA ATKINSON Final Result Performing Organization Address [facility] Phone Number INTERFACE SYSTEM [...] GLUCOSE POC 120(H) 60 - 100 mg/dL [facility] Venous blood specimen (specimen) 04/05/2008 11:06 AM CDT 04/06/2008 7:01 AM CDT Riky Mejía MD POINT OF CARE TESTING Final Result INTERFACE SYSTEM Refer to clinic/hospital department [facility] CLIA# [id number] [address] [place] [address] * (ABNORMAL) POC GLUCOSE (04/05/2008 7:26 AM CDT) GLUCOSE POC 120(H) 60 - 100 mg/dL [facility] Venous blood specimen (specimen) 04/05/2008 7:26 AM CDT 04/06/2008 7:01 AM CDT Riky Mejía MD POINT OF CARE TESTING Final Result Performing Organization Address City/State/[facility] Co de Phone Number INTERFACE SYSTEM Refer to clinic/hospital department [facility] CLIA# [id number] [address] [place] [address] * PT AND APTT (04/05/2008 3:04 AM CDT) PTT 24.1 22.5 - 36.5 Secs [facility] Comment: Therapeutic Range: Hi-level PE/DVT heparin protocol 80.1 -95.0 sec Lo-level PE/DVT heparin protocol 67.1 - 80.0 sec Cardiac Heparin Protocol 67.1 - 85.0 sec Neuro Heparin Protocol 67.1 - 80.0 sec As of 09/25/2007 note change in APTT Normal Range. PROTIME 14.8 12.8 - 15.8 Secs [facility] Comment:As of 2007 not e change in normal range. INR 1.0 [facility] Comment: Expected Values for [...] Anticoagulation available from the pharmacy [facility] [phone] Blood specimen (specimen) 04/05/2008 3:04 AM CDT 04/05/2008 3:08 AM CDT Riky Mejía MD HEMATOLOGY ORDERABLES Edite d Performing Organization Address [facility] Phone Number INTERFACE SYSTEM Refer to clinic/hospital department [facility] CLIA# [id number] [address] [place] [address] * MAGNESIUM LEVEL (04/05/2008 3:04 AM CDT) MAGNESIUM 2.1 1.7 - 2.4 mg/dL [facility] Blood specimen (specimen) 04/05/2008 3:04 AM CDT 04/05/2008 3:08 AM CDT Riky Mejía MD CHEMISTRY ORDERABLES Final Result Performing Organization Address [facility] Phone Number INTERFACE SYSTEM Refer to clinic/hospital department [facility] CLIA# [id number] [address] [place] [address] * (ABNORMAL) PHOSPHORUS (04/05/2008 3:04 AM CDT) PHOSPHORUS 1.7(L) 2.5 - 4.6 mg/dL [facility] Blood specimen (specimen) 04/05/2008 3:04 AM CDT 04/05/2008 3:08 AM CDT Riky Mejía MD CHEMISTRY ORDERABLES Final Result Performing Organization Address [facility] Phone Number INTERFACE SYSTEM Refer to clinic/hospital department [facility] CLIA# [id number] [address] [place] [address] * (ABNORMAL) BASIC METABOLIC PANEL (04/05/2008 3:04 AM CDT) CO2 30 22 - 32 mmol/l [facility] OSMOLALITY, CALCULATED 307(H) 275 - 295 mOsm/Kg [facility] POTASSIUM 3.9 3.5 - 5.0 mEq/L [facility] CREATININE 0.7 0.7 - 1.2 mg/dL [facility] CALCIUM 8.2(L) 8.4 - 10.5 mg/dL [facility] GLUCOSE 126(H) 70 - 110 mg/dL [facility] CHLORIDE 112(H) 95 - 110 mEq/L [facility] SODIUM 146(H) 136 - 145 mEq/L [facility] ANION GAP 8(L) 9 - 20 mEq/L [facility] BUN 32(H) 7 - 17 mg/dL [facility] Blood specimen (specimen) 04/05/2008 3:04 AM CDT 04/05/2008 3:08 AM CDT us Riky Mejía MD CHEMISTRY ORDERABLES Final Result Performing Organization Address City/State/[facility] Co de Phone Number INTERFACE SYSTEM Refer to clinic/hospital department [facility] CLIA# [id number] [address] [place] [address] * (ABNORMAL) CBC WITH DIFFERENTIAL (04/05/2008 3:04 AM CDT) EOSINOPHIL ABSOLUTE 0.2 0.0 - 0.7 K/ul [facility] EOSINOPHILS 2.2 0.0 - 7.0 % [facility] PERIPHERAL BLOOD SMEAR REVIEW Automated Diff [facility] RBC 3.51(L) 4.20 - 5.40 Mil/ul [facility] MCHC 33.2 30.0 - 35.0 g/dL [facility] LYMPHOCYTE ABSOLUTE 1.1(L) 1.2 - 4.0 K/ul [facility] LYMPHOCYTES 9.6(L) 24.0 - 44.0 % [facility] MCV 88.3 84.0 - 103.0 Fl [facility] BASOPHILS 0.1 0.0 - 1.0 % [facility] MPV 11.0 8.9 - 12.8 Fl [facility] BASOPHILS ABSOLUTE 0.0 0.0 - 0.2 K/ul [facility] HEMOGLOBIN 10.3(L) 12.0 - 16.0 g/dL [facility] MONOCYTES 8.4 2.0 - 10.0 % [facility] RDW 17.1(H) 11.0 - 14.5 % [facility] MONOCYTE ABSOLUTE 0.9(H) 0.1 - 0.6 K/ul [facility] WBC 10.9 4.5 - 11.0 K/ul [facility] NEUTROPHILS 79.7(H) 42.2 - 75.2 % [facility] MCH 29.3 27.0 - 34.0 pg [facility] NEUTROPHIL ABSOLUTE 8.7(H) 2.0 - 8.0 K/ul [facility] HEMATOCRIT 31.0(L) 36.0 - 46.0 % [facility] PLATELETS 91(L) 140 - 440 K/ul [facility] Blood specimen (specimen) 04/05/2008 3:04 AM CDT 04/05/2008 3:08 AM CDT Riky Mejía MD HEMATOLOGY ORDERABLES Final Result Performing Organization Address City/State/[facility] Co de Phone Number INTERFACE SYSTEM Refer to clinic/hospital department [facility] CLIA# [id number] [address] [place] [address] * (ABNORMAL) RENAL FUNCTION PANEL (04/04/2008 5:04 PM CDT) ANION GAP 8(L) 9 - 20 mEq/L [facility] PHOSPHORUS 1.9(L) 2.5 - 4.6 mg/dL [facility] ALBUMIN 2.9(L) 3.5 - 5.0 g/dL [facility] CHLORIDE 117(H) 95 - 110 mEq/L [facility] CREATININE 1.2 0.7 - 1.2 mg/dL [facility] SODIUM 147(H) 136 - 145 mEq/L [facility] GLUCOSE 124(H) 70 - 110 mg/dL [facility] CO2 26 22 - 32 mmol/l [facility] CALCIUM 7.5(L) 8.4 - 10.5 mg/dL [facility] POTASSIUM 3.5 3.5 - 5.0 mEq/L [facility] OSMOLALITY, CALCULATED 309(H) 275 - 295 mOsm/Kg [facility] BUN 34(H) 7 - 17 mg/dL [facility] Blood specimen (specimen) 04/04/2008 5:04 PM CDT 04/04/2008 5:06 PM CDT us Riky Mejía MD CHEMISTRY ORDERABLES Edited INTERFACE SYSTEM Refer to clinic/hospital department [facility] CLIA# [id number] [address] [place] [id number] * (ABNORMAL) CBC WITH DIFFERENTIAL (04/04/2008 5:04 PM CDT) HEMOGLOBIN 9.6(L) 12.0 - 16.0 g/dL [facility] RDW 16.8(H) 11.0 - 14.5 % [facility] MONOCYTE ABSOLUTE 0.9(H) 0.1 - 0.6 K/ul [facility] MONOCYTES 10.0 2.0 - 10.0 % [facility] WBC 9.4 4.5 - 11.0 K/ul [facility] MCH 29.0 27.0 - 34.0 pg [facility] NEUTROPHIL ABSOLUTE 7.3 2.0 - 8.0 K/ul [facility] NEUTROPHILS 77.7(H) 42.2 - 75.2 % [facility] HEMATOCRIT 28.9(L) 36.0 - 46.0 % [facility] EOSINOPHILS 1.1 0.0 - 7.0 % [facility] PLATELETS 83(L) 140 - 440 K/ul [facility] PERIPHERAL BLOOD SMEAR REVIEW Automated Diff [facility] EOSINOPHIL ABSOLUTE 0.1 0.0 - 0.7 K/ul [facility] RBC 3.31(L) 4.20 - 5.40 Mil/ul [facility] LYMPHOCYTES 11.1(L) 24.0 - 44.0 % [facility] MCHC 33.2 30.0 - 35.0 g/dL [facility] LYMPHOCYTE ABSOLUTE 1.0(L) 1.2 - 4.0 K/ul [facility] MCV 87.3 84.0 - 103.0 Fl [facility] MPV 11.6 8.9 - 12.8 Fl [facility] BASOPHILS ABSOLUTE 0.0 0.0 - 0.2 K/ul [facility] BASOPHILS 0.1 0.0 - 1.0 % [facility] Blood specimen (specimen) 04/04/2008 5:04 PM CDT 04/04/2008 5:06 PM CDT us Riky Mejía MD HEMATOLOGY ORDERABLES Final Result Performing Organization Address City/State/[facility] Co de Phone Number INTERFACE SYSTEM Refer to clinic/hospital department [facility] CLIA# [id number] Formerly [facility] [place] [address] * (ABNORMAL) POC ISTAT EG 7+ (04/04/2008 9:15 AM CDT) SODIUM 145 138 - 146 mEq/L [facility] BASE EXCESS 0 -2 - 3 mmol/l [facility] PH 7.39 7.35 - 7.45 Unit [facility] O2 SATURATION 94(L) 95 - 98 % [facility] PO2 TEMP CORRECT 70(L) 80 - 105 mmHg [facility] PCO2 TEMP CORRECT 42 35 - 45 mmHg [facility] HEMOGLOBIN POC 8.8 +/-3 g/dL 12.0 - 16.0 g/dL [facility] POTASSIUM 3.2(L) 3.5 - 4.9 mEq/L [facility] PH TEMP CORRECT 7.39 7.35 - 7.45 Unit [facility] HCO3 (CALC) POC 25.0 22.0 - 26.0 mmol/l [facility] TCO2 (CALC) POC 26 23 - 27 mmol/l [facility] SPECIMEN TYPE Arterial [facility] Comment: Test Performed By [id number] Pulse OX: 94 Hemoglobin calculated from Hematocrit result PO2 70(L) 80 - 105 mmHg [facility] CALCIUM IONIZED 1.12 1.12 - 1.32 mmol/l [facility] HEMATOCRIT ABG 26(L) 38 - 51 % [facility] PCO2 POC 42 35 - 45 mmHg [facility] Arterial blood specimen (specimen) 04/04/2008 9:15 AM CDT 04/04/2008 9:18 AM CDT us Riky Mejía MD POINT OF CARE TESTING COM F inal Result Performing Organization Address [facility] de Phone Number INTERFACE SYSTEM Refer to clinic/hospital department [facility] CLIA# [id number] [address] [place] [address] * PTT (04/04/2008 4:19 AM CDT) PTT 26.4 22.5 - 36.5 Secs [facility] Comment: Therapeutic Range: Hi-level [...] HEMATOLOGY ORDERABLES Final Result Performing Organization Address [facility] Phone Number INTERFACE SYSTEM Refer to clinic/hospital department [facility] CLIA# [id number] [address] [place] [address] * PROTIME-INR (04/04/2008 4:19 AM CDT) PROTIME 15.2 12.8 - 15.8 Secs [facility] Comment:As of 2007 not e change in normal range. INR 1.1 [facility] Comment: Expected Values for [...] from the pharmacy Jolene Ramirez Pharm D. [phone] Blood specimen (specimen) 04/04/2008 4:19 AM CDT 04/04/2008 4:23 AM CDT Riky Mejía MD HEMATOLOGY ORDERABLES Final Result Performing Organization Address [facility] Phone Number INTERFACE SYSTEM Refer to clinic/hospital department [facility] CLIA# [id number] Formerly [facility] [place] [address] * (ABNORMAL) PHOSPHORUS (04/04/2008 4:19 AM CDT) PHOSPHORUS 1.9(L) 2.5 - 4.6 mg/dL [facility] Blood specimen (specimen) 04/04/2008 4:19 AM CDT 04/04/2008 4:23 AM CDT Riky Mejía MD CHEMISTRY ORDERABLES Final Result Performing Organization Address [facility] de Phone Number INTERFACE SYSTEM Refer to clinic/hospital department [facility] CLIA# [id number] [address] [place] [address] * MAGNESIUM LEVEL (04/04/2008 4:19 AM CDT) [facility] MAGNESIUM 1.8 1.7 - 2.4 mg/dL [facility] Blood specimen (specimen) 04/04/2008 4:19 AM CDT 04/04/2008 4:23 AM CDT Riky Mejía MD CHEMISTRY ORDERABLES Final Result Performing Organization Address [facility] de Phone Number INTERFACE SYSTEM Refer to clinic/hospital department [facility] CLIA# [id number] [address] [place] [address] * (ABNORMAL) COMPREHENSIVE METABOLIC PANEL (04/04/2008 4:19 AM CDT) [facility] ALBUMIN/GLOBULIN RATIO 1.4 1.0 - 2.3 [facility] POTASSIUM 3.3(L) 3.5 - 5.0 mEq/L [facility] ANION GAP 11 9 - 20 mEq/L [facility] ALBUMIN 3.0(L) 3.5 - 5.0 g/dL [facility] CREATININE 2.1(H) 0.7 - 1.2 mg/dL [facility] ALT 20 4 - 36 IU/L [facility] CALCIUM 8.3(L) 8.4 - 10.5 mg/dL [facility] GLUCOSE 124(H) 70 - 110 mg/dL [facility] ALKALINE PHOSPHATASE 42 25 - 100 U/L [facility] CHLORIDE 111(H) 95 - 110 mEq/L [facility] OSMOLALITY, CALCULATED 310(H) 275 - 295 mOsm/Kg [facility] GLOBULIN (CALC) 2.2(L) 2.4 - 3.9 g/dL [facility] TOTAL PROTEIN 5.2(L) 6.3 - 8.2 g/dL [facility] SODIUM 146(H) 136 - 145 mEq/L [facility] BILIRUBIN TOTAL 0.9 0.3 - 1.2 mg/dL [facility] CO2 27 22 - 32 mmol/l [facility] BUN 42(H) 7 - 17 mg/dL [facility] AST 104(H) 8 - 33 U/L [facility] Blood specimen (specimen) 04/04/2008 4:19 AM CDT 04/04/2008 4:23 AM CDT Riky Mejía MD CHEMISTRY ORDERABLES Final Result INTERFACE SYSTEM Refer to clinic/hospital department [facility] CLIA# [id number] [address] [place] [address] * (ABNORMAL) CBC WITH DIFFERENTIAL (04/04/2008 4:19 AM CDT) HEMATOCRIT 28.7(L) 36.0 - 46.0 % [facility] EOSINOPHILS 0.2 0.0 - 7.0 % [facility] PLATELETS 83(L) 140 - 440 K/ul [facility] PERIPHERAL BLOOD SMEAR REVIEW Automated Diff [facility] EOSINOPHIL ABSOLUTE 0.0 0.0 - 0.7 K/ul [facility] RBC 3.33(L) 4.20 - 5.40 Mil/ul [facility] LYMPHOCYTES 12.1(L) 24.0 - 44.0 % [facility] MCHC 33.4 30.0 - 35.0 g/dL [facility] LYMPHOCYTE ABSOLUTE 1.1(L) 1.2 - 4.0 K/ul [facility] MCV 86.2 84.0 - 103.0 Fl [facility] MPV 11.5 8.9 - 12.8 Fl [facility] BASOPHILS ABSOLUTE 0.0 0.0 - 0.2 K/ul [facility] BASOPHILS 0.2 0.0 - 1.0 % [facility] HEMOGLOBIN 9.6(L) 12.0 - 16.0 g/dL [facility] RDW 16.1(H) 11.0 - 14.5 % [facility] MONOCYTE ABSOLUTE 1.0(H) 0.1 - 0.6 K/ul [facility] MONOCYTES 10.5(H) 2.0 - 10.0 % [facility] WBC 9.0 4.5 - 11.0 K/ul [facility] MCH 28.8 27.0 - 34.0 pg [facility] NEUTROPHIL ABSOLUTE 6.9 2.0 - 8.0 K/ul [facility] NEUTROPHILS 77.0(H) 42.2 - 75.2 % [facility] Blood specimen (specimen) 04/04/2008 4:19 AM CDT 04/04/2008 4:23 AM CDT us Riky Mejía MD HEMATOLOGY ORDERABLES Final Result INTERFACE SYSTEM Refer to clinic/hospital department [facility] CLIA# [id number] [address] [place] [address] * (ABNORMAL) POC ISTAT EG 7+ (04/04/2008 4:07 AM CDT) POTASSIUM 3.1(L) 3.5 - 4.9 mEq/L [facility] PH TEMP CORRECT 7.45 7.35 - 7.45 Unit [facility] HCO3 (CALC) POC 24.5 22.0 - 26.0 mmol/l [facility] TCO2 (CALC) POC 26 23 - 27 mmol/l [facility] FIO2 50 [facility] PO2 138(H) 80 - 105 mmHg [facility] CALCIUM IONIZED 1.10(L) 1.12 - 1.32 mmol/l [facility] HEMATOCRIT ABG 25(L) 38 - 51 % [facility] PCO2 POC 35 35 - 45 mmHg [facility] SODIUM 143 138 - 146 mEq/L [facility] BASE EXCESS 1 -2 - 3 mmol/l [facility] PH 7.45 7.35 - 7.45 Unit [facility] O2 SATURATION 99(H) 95 - 98 % [facility] PO2 TEMP CORRECT 138(H) 80 - 105 mmHg [facility] SPECIMEN TYPE Arterial [facility] Comment: Test Performed By [id number] Tidal volume: 500 PEEP: 10 Rate: 14 Pulse OX: 100 Hemoglobin calculated from Hematocrit result PCO2 TEMP CORRECT 35 35 - 45 mmHg [facility] HEMOGLOBIN POC 8.5 +/-3 g/dL 12.0 - 16.0 g/dL [facility] Arterial blood specimen (specimen) 04/04/2008 4:07 AM CDT 04/04/2008 5:13 AM CDT us Riky Mejía MD POINT OF CARE TESTING COM F inal Result INTERFACE SYSTEM Refer to clinic/hospital department [facility] CLIA# [id number] [address] [place] [address] * MRSA CULTURE (04/03/2008 9:03 PM CDT) FINAL REPORT Culture screen for MRSA negative INTERFACE SYSTEM 04/03/2008 9:03 PM CDT 04/03/2008 9:03 PM CDT us Riky Mejía MD MICROBIOLOGY - GENERAL [facility] Final Result Performing Organization Address City/[facility]/ZIP Co de Phone Number INTERFACE SYSTEM [...] CALCIUM IONIZED 1.00(L) 1.12 - 1.32 mmol/l [facility] HEMATOCRIT ABG 24(L) 38 - 51 % [facility] PCO2 POC 36 35 - 45 mmHg [facility] SODIUM 144 138 - 146 mEq/L [facility] BASE EXCESS 0 -2 - 3 mmol/l [facility] PH 7.44 7.35 - 7.45 Unit [facility] O2 SATURATION 98 95 - 98 % [facility] PO2 TEMP CORRECT 101 80 - 105 mmHg [facility] SPECIMEN TYPE Arterial [facility] Comment: Test Performed By [id number] Tidal volume: 500 PEEP: 10 Rate: 16 Pulse OX: 96 Hemoglobin calculated from Hematocrit result PCO2 TEMP CORRECT 36 35 - 45 mmHg [facility] HEMOGLOBIN POC 8.2 +/-3 g/dL 12.0 - 16.0 g/dL [facility] POTASSIUM 3.2(L) 3.5 - 4.9 mEq/L [facility] PH TEMP CORRECT 7.44 7.35 - 7.45 Unit [facility] HCO3 (CALC) POC 23.9 22.0 - 26.0 mmol/l [facility] TCO2 (CALC) POC 25 23 - 27 mmol/l [facility] FIO2 60 [facility] PO2 101 80 - 105 mmHg [facility] Arterial blood specimen (specimen) 04/03/2008 8:35 PM CDT 04/03/2008 8:48 PM CDT Riky Mejía MD POINT OF CARE TESTING COM F inal Result Performing Organization Address [facility] de Phone Number INTERFACE SYSTEM Refer to clinic/hospital department [facility] CLIA# [id number] [address] [place] [address] * TYPE AND CROSSMATCH (04/03/2008 8:13 PM CDT) [facility] BLOOD BANK PRODUCT INTERFACE SYSTEM Blood specimen (specimen) 04/03/2008 8:13 PM CDT 04/03/2008 8:17 PM CDT Riky Mejía MD BLOOD BANK ORDERABLES Edite d Performing Organization Address [facility] Phone Number INTERFACE SYSTEM Refer to clinic/hospital department * (ABNORMAL) CBC WITH DIFFERENTIAL (04/03/2008 8:13 PM CDT) Pathologist [facility] HEMATOCRIT 26.9(L) 36.0 - 46.0 % [facility] PLATELETS 102(L) 140 - 440 K/ul [facility] EOSINOPHIL ABSOLUTE 0.0 0.0 - 0.7 K/ul [facility] EOSINOPHILS 0.1 0.0 - 7.0 % [facility] RBC 3.13(L) 4.20 - 5.40 Mil/ul [facility] MCHC 33.8 30.0 - 35.0 g/dL [facility] LYMPHOCYTE ABSOLUTE 1.1(L) 1.2 - 4.0 K/ul [facility] LYMPHOCYTES 12.2(L) 24.0 - 44.0 % [facility] MCV 85.9 84.0 - 103.0 Fl [facility] BASOPHILS 0.1 0.0 - 1.0 % [facility] MPV 11.7 8.9 - 12.8 Fl [facility] BASOPHILS ABSOLUTE 0.0 0.0 - 0.2 K/ul [facility] HEMOGLOBIN 9.1(L) 12.0 - 16.0 g/dL [facility] MONOCYTES 11.9(H) 2.0 - 10.0 % [facility] RDW 16.2(H) 11.0 - 14.5 % [facility] MONOCYTE ABSOLUTE 1.1(H) 0.1 - 0.6 K/ul [facility] WBC 9.0 4.5 - 11.0 K/ul [facility] NEUTROPHILS 75.7(H) 42.2 - 75.2 % [facility] MCH 29.1 27.0 - 34.0 pg [facility] NEUTROPHIL ABSOLUTE 6.8 2.0 - 8.0 K/ul [facility] Blood specimen (specimen) 04/03/2008 8:13 PM CDT 04/03/2008 8:17 PM CDT us Riky Mejía MD HEMATOLOGY ORDERABLES Final Result INTERFACE SYSTEM Refer to clinic/hospital department [facility] CLIA# [id number] [address] [place] [address] * PTT (04/03/2008 8:13 PM CDT) PTT 28.1 22.5 - 36.5 Secs [facility] Comment: Therapeutic Range: Hi-level [...] HEMATOLOGY ORDERABLES Final Result Performing Organization Address [facility] Phone Number INTERFACE SYSTEM Refer to clinic/hospital department [facility] CLIA# [id number] [address] [place] [address] * (ABNORMAL) PROTIME-INR (04/03/2008 8:13 PM CDT) INR 1.2 [facility] Comment: Expected Values for [...] Anticoagulation available from the pharmacy [facility] [phone] PROTIME 16.3(H) 12.8 - 15.8 Secs [facility] Comment:As of 2007 not e change in normal range. Blood specimen (specimen) 04/03/2008 8:13 PM CDT 04/03/2008 8:17 PM CDT Riky Mejía MD HEMATOLOGY ORDERABLES Final Result Performing Organization Address [facility] de Phone Number INTERFACE SYSTEM Refer to clinic/hospital department [facility] CLIA# [id number] [address] [place] [address] * ANTIBODY SCREEN (04/03/2008 8:13 PM CDT) [facility] ANTIBODY SCREEN Negative [facility] Blood specimen (specimen) 04/03/2008 8:13 PM CDT 04/03/2008 8:17 PM CDT us Riky Mejía MD BLOOD BANK ORDERABLES Final Result Performing Organization Address [facility] de Phone Number INTERFACE SYSTEM Refer to clinic/hospital department [facility] CLIA# [id number] [facility] [place] [address] * ABORH TYPING (04/03/2008 8:13 PM CDT) [facility] ABO/RH TYPE O Positive [facility] Blood specimen (specimen) 04/03/2008 8:13 PM CDT 04/03/2008 8:17 PM CDT us Riky Mejía MD BLOOD BANK ORDERABLES Final Result Performing Organization Address [facility] de Phone Number INTERFACE SYSTEM Refer to clinic/hospital department [facility] CLIA# [id number] [facility] [place] [address] * (ABNORMAL) COMPREHENSIVE METABOLIC PANEL (04/03/2008 8:13 PM CDT) [facility] GLUCOSE 140(H) 70 - 110 mg/dL [facility] ALKALINE PHOSPHATASE 40 25 - 100 U/L [facility] CHLORIDE 112(H) 95 - 110 mEq/L [facility] AST 97(H) 8 - 33 U/L [facility] GLOBULIN (CALC) 1.9(L) 2.4 - 3.9 g/dL [facility] TOTAL PROTEIN 4.9(L) 6.3 - 8.2 g/dL [facility] SODIUM 146(H) 136 - 145 mEq/L [facility] ANION GAP 11 9 - 20 mEq/L [facility] CO2 26 22 - 32 mmol/l [facility] BUN 47(H) 7 - 17 mg/dL [facility] ALT 19 4 - 36 IU/L [facility] ALBUMIN/GLOBULIN RATIO 1.6 1.0 - 2.3 [facility] POTASSIUM 3.2(L) 3.5 - 5.0 mEq/L [facility] OSMOLALITY, CALCULATED 312(H) 275 - 295 mOsm/Kg [facility] ALBUMIN 3.0(L) 3.5 - 5.0 g/dL [facility] CREATININE 2.9(H) 0.7 - 1.2 mg/dL [facility] BILIRUBIN TOTAL 0.6 0.3 - 1.2 mg/dL [facility] CALCIUM 7.6(L) 8.4 - 10.5 mg/dL [facility] Blood specimen (specimen) 04/03/2008 8:13 PM CDT 04/03/2008 8:17 PM CDT Riky Mejía MD CHEMISTRY ORDERABLES Edited INTERFACE SYSTEM Refer to clinic/hospital department [facility] CLIA# [id number] [address] [place] [address] documented in this encounter Visit Diagnoses Not on filedocumented in this encounter Additional Health Concerns Infection Onset Date Last Indicated Resolved Time MRSA Comment:Kapil 10/26/15 10/27/2015 10/27/2015 documented as of this encounter Care Teams Key Account Representative Relationship Specialty Start Date End Date Jose Bowers MD [address] [place] [phone] PCP - General 12/31/05 documented as of this encounter
--- OUTSIDE RECORDS SUMMARY | 2025-03-04 15:15 | XMS_ITS | Encounter Summary ---
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
--- OUTSIDE RECORDS SUMMARY | 2025-03-04 15:15 | XMS_ITS | Encounter Summary ---
Author Organization [facility] Address [address] [place] [address] Care Team Providers Care Telehealth Director Name Role Phone Jose Bowers MD Primary Care Provider Unavailab le Encounter Details Date Type Department Care Team (Late st Contact Info) Description 07/10/2007 Outpatient [facility] Physical Med and Rehab- [place] [address] [place] [address] Ramana Juarez MD [address] [place] [address] Social History Tobacco Use Types Packs/Day Years Used Date Smoking Tobacco: Never Assessed Comments Unknown Sex and Gender Information Value Date Recorded Sex Assigned at Not on file 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
--- OUTSIDE RECORDS SUMMARY | 2025-03-04 15:15 | XMS_ITS | Encounter Summary ---
Author Organization [facility] Address [address] [place] [address] Care Team Providers Care Sports Lawyer Name Role Phone Jose Bowers MD Primary Care Provider Unavailab le Encounter Details Date Type Department Care Team (Late st Contact Info) Description 12/31/2006 Outpatient Historical [facility] Physical Med and Rehab- [place] [address] [place] [phone] Jose Bowers MD [address] [place] [address] Paraplegia (CMS/HCC) (Primary Dx) Social History Tobacco Use Types Packs/Day Years Used Date Smoking Tobacco: Never Assessed Comments Unknown Sex and Gender Information Value Date Recorded Sex Assigned at Not on file 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
--- OUTSIDE RECORDS SUMMARY | 2025-03-04 15:15 | XMS_ITS | Encounter Summary ---
Author Organization [facility] Address [address] [place] [address] Care Team Providers Care Supervisor Inspection Room Name Role Phone Jose Bowers MD Primary Care Provider Unavailab le Encounter Details Date Type Department Care Team (Late st Contact Info) Description 11/01/2005 Outpatient Historical [facility] Physical Med and Rehab- [place] [address] [place] [phone] Jose Bowers MD [address] [place] [address] Unspecified Paralysis (CMS/HCC) (Primary Dx); Neurogenic Bladder, NOS Social History Tobacco Use Types Packs/Day Years Used Date Smoking Tobacco: Never Assessed Comments Unknown Sex and Gender Information Value Date Recorded Sex Assigned at Not on file 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
--- OUTSIDE RECORDS SUMMARY | 2025-03-04 15:15 | XMS_ITS | Encounter Summary ---
Author Organization [facility] Address [address] [place] [address] Care Team Providers Care Mid Level Developer Name Role Phone Jose Bowers MD Primary Care Provider Levon lowry Encounter Details Date Type Department Care Team (Latest Contact Info) Description 04/28/2008 Outpatient Historical [facility] [address] [place] [address] AMBULANCE, [facility] Paraplegia ([facility]); Pressure Ulcer, Upper Back; Pressure Ulcer, Unspecified Stage; Wheelchair Dependence; Bed Confinement Status; Encounter for Long-Term (Current) Use of Other Medications; Encounter for Long-Term (Current) Use of Insulin (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) Paraplegia Pressure ulcer, upper back(707.02) Pressure ulcer, upper back Pressure ulcer, unspecified stage(707.20) Pressure ulcer, unspecified stage Wheelchair dependence Bed confinement status Encounter for long-term (current) use of other medications Encounter for long-term (current) use of insulin ([facility]) Encounter for long-term (current) use of insulin Personal history of allergy to penicillin Personal history of allergy to narcotic agent documented in this encounter Additional Health Concerns Infection Onset Date Last Indicated Resolved Time MRSA Comment:Nares 4/20/16 10/27/2015 10/27/2015 documented as of this encounter Care Teams Mid Level Developer Relationship Specialty Start Date End Date Jose Bowers MD [address] [place] [id number] PCP - General 12/31/05 documented as of this encounter
--- OUTSIDE RECORDS SUMMARY | 2025-03-04 15:15 | XMS_ITS | Encounter Summary ---
Author Organization [facility] Address [address] [place] [address] Care Team Providers Care Hearing Screener Name Role Phone Jose Bowers MD Primary Care Provider Unavailab le Encounter Details Date Type Department Care Team (Late st Contact Info) Description 10/01/2005 Outpatient Historical [facility]- [place] [address] [place] [phone] Jose Bowers MD [address] [place] [address] Paraplegia (CMS/HCC) (Primary Dx); Neurogenic Bladder, NOS Social History Tobacco Use Types Packs/Day Years Used Date Smoking Tobacco: Never Assessed Comments Unknown Sex and Gender Information Value Date Recorded Sex Assigned at Not on file Legal Sex Female 6:28 AM TESTING CONSULTANT Gender Identity Not on file Sexual Orientation Not on file documented as of this encounter Plan of Treatment Not on file documented as of this encounter Visit Diagnoses Diagnosis Paraplegia (CMS/HCC)- Primary Paraplegia Neurogenic bladder, NOS documented in this encounter Additional Health Concerns Infection Onset Date Last Indicated Resolved Time MRSA Comment:Kapil 10/26/15 10/27/2015 10/27/2015 documented as of this encounter Care Teams Hearing Screener Relationship Specialty Start Date End Date Jose Bowers MD [address] [place] [address] PCP - General 12/31/05 documented as of this encounter
--- OUTSIDE RECORDS SUMMARY | 2025-03-04 15:15 | XMS_ITS | Encounter Summary ---
Author Organization [facility] Address [address] [place] [address] Care Team Providers Care Bottom Filler Name Role Phone Jose Bowers MD Primary Care Provider Unavailab le Encounter Details Date Type Department Care Team (Late st Contact Info) Description 01/30/2007 Outpatient Historical [facility] Physical Med and Re[facility]- [place] [address] [place] [phone] Jose Bowers MD [address] [place] [address] Paraplegia (CMS/HCC) (Primary Dx) Social History Tobacco Use Types Packs/Day Years Used Date Smoking Tobacco: Never Assessed Comments Unknown Sex and Gender Information Value Date Recorded Sex Assigned at Not on file 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
--- OUTSIDE RECORDS SUMMARY | 2025-03-04 15:15 | XMS_ITS | Encounter Summary ---
Author Organization [facility] Address [address] [place] [address] Care Team Providers Care Rum Processing Operator Name Role Phone Jose Bowers MD Primary Care Provider Unavail le Encounter Details Date Type Department Care Team (Late st Contact Info) Description 12/31/2005 Outpatient Historical [facility] Jose Bowers MD [address] [place] [address] Paraplegia (CMS/HCC) (Primary Dx) Social History Tobacco Use Types Packs/Day Years Used Date Smoking Tobacco: Never Assessed Comments Unknown Sex and Gender Information Value Date Recorded Sex Assigned at Not on file Legal Sex Female 6:28 AM MEDICAL 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 The new reference ranges are Males 38-174 Females 26-140 The old referance ranges were Males 0-155 Females 0-133 12/31/2005 12:4 8 PM CDT Jose Bowers MD CHEMISTRY ORDERABLES Final Resul t Performing Organization Address [facility] Phone Number INTERFACE SYSTEM Refer to clinic/hospital department * C-REACTIVE PROTEIN (12/31/2005 12:48 PM CDT) CRP 0.85 0.00 - 1.00 mg/dL INTERFACE SYSTEM 12/31/2005 12:4 8 PM CDT Jose Bowers MD CHEMISTRY ORDERABLES Final Resul t Performing Organization Address [facility] Phone Number INTERFACE SYSTEM Refer to clinic/hospital department * SEDIMENTATION RATE (12/31/2005 12:48 PM CDT) ESR (SEDIMENTATION RATE) 18 0 - 22 mm/hr INTERFACE SYSTEM 12/31/2005 12:4 8 PM CDT Jose Bowers MD HEMATOLOGY ORDERABLES Final Resu lt Performing Organization Address [facility] Phone Number INTERFACE SYSTEM [...] in this encounter Visit Diagnoses Diagnosis Paraplegia (CMS/[facility])- Primary Paraplegia documented in this encounter Additional Health Concerns Infection Onset Date Last Indicated Resolved Time MRSA Comment:Kapil 10/26/15 10/27/2015 10/27/2015 documented as of this encounter Care Teams Rum Processing Operator Relationship Specialty Start Date End Date Jose Bowers MD [address] [place] [id number] PCP - General 12/31/05 documented as of this encounter
--- OUTSIDE RECORDS SUMMARY | 2025-03-04 15:15 | XMS_ITS | Encounter Summary ---
Author Organization [facility] Address [address] [place] [address] Care Team Providers Care Hull Builder Name Role Phone Jose Bowers MD Primary Care Provider Unavailab le Encounter Details Date Type Department Care Team (Latest Contact Info) Description 08/30/2006 Outpatient Historical [facility] [address] [place] [phone] Jose Bowers MD [address] [place] [phone] Pain in Joint, Pelvic Region and Thigh (Primary Dx) Social History Tobacco Use Types Packs/Day Years Used Date Smoking Tobacco: Never Assessed Comments Unknown Sex and Gender Information Value Date Recorded Sex Assigned at Not on file Legal Sex Female 6:28 AM RESEARCH AND DEVELOPMENT TESTER Gender Identity Not on file Sexual Orientation Not on file documented as of this encounter Plan of Treatment Not on file documented as of this encounter Procedures Procedure Name Priority Date/Time Associated Diagnosis Comments CBC WITH DIFFERENTIAL Routine 08/30/2006 12:42 PM RESEARCH AND DEVELOPMENT TESTER SEDIMENTATION RATE Routine 08/30/2006 12 :42 PM RESEARCH AND DEVELOPMENT TESTER CK Routine 08/30/2006 12:42 PM RESEARCH AND DEVELOPMENT TESTER documented in this encounter Results * (ABNORMAL) CK (08/30/2006 12:42 PM RESEARCH AND DEVELOPMENT TESTER) CK 201(H) 26 - 140 U/L INTERFACE SYSTEM Comment: As of 05 the [facility] has changed testing methods. The new reference ranges are Males 38-174 Females 26-140 The old referance ranges were Males 0-155 Females 0-133 08/30/2006 12:4 2 PM RESEARCH AND DEVELOPMENT TESTER Jose Bowers MD CHEMISTRY ORDERABLES Edited Performing Organization Address [facility] Co de Phone Number INTERFACE SYSTEM Refer to clinic/hospital department * (ABNORMAL) CBC WITH DIFFERENTIAL (08/30/2006 12:42 PM RESEARCH AND DEVELOPMENT TESTER) WBC 5.1 4.5 - 11.0 K/ul INTERFACE [...] K/ul INTERFACE SYSTEM 08/30/2006 12:4 2 PM RESEARCH AND DEVELOPMENT TESTER Jose Bowers MD HEMATOLOGY ORDERABLES Edited Performing Organization Address [facility] Co de Phone Number INTERFACE SYSTEM Refer to clinic/hospital department * (ABNORMAL) SEDIMENTATION RATE (08/30/2006 12:42 PM RESEARCH AND DEVELOPMENT TESTER) ESR (SEDIMENTATION RATE) 27(H) 0 - 22 mm/hr INTERFACE SYSTEM 08/30/2006 12:4 2 PM RESEARCH AND DEVELOPMENT TESTER Jose Bowers MD HEMATOLOGY ORDERABLES Edited INTERFACE SYSTEM Refer to clinic/hospital department documented in this encounter Visit Diagnoses Diagnosis Pain in joint, pelvic region and thigh- Primary documented in this encounter Additional Health Concerns Infection Onset Date Last Indicated Resolved Time MRSA Comment:Kapil 10/26/15 10/27/2015 10/27/2015 documented as of this encounter Care Teams Hull Builder Relationship Specialty Start Date End Date Jose Bowers MD [address] [place] [address] PCP - General 12/31/05 documented as of this encounter
--- OUTSIDE RECORDS SUMMARY | 2025-03-04 15:15 | XMS_ITS | Encounter Summary ---
Author Organization [facility] Address [address] [place] [address] Care Team Providers Care Runway Model Name Role Phone Jose Bowers MD Primary Care Provider Unavail le Encounter Details Date Type Department Care Team (Late st Contact Info) Description 11/26/2005 Inpatient Historical [facility] Jose Bowers MD [address] [place] [address] Other Specified Rehabilitation Procedure (Primary Dx) Social History Tobacco Use Types Packs/Day Years Used Date Smoking Tobacco: Never Assessed Comments Unknown Sex and Gender Information Value Date Recorded Sex Assigned at Not on file 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 [facility] has changed the methodology for TSH, and with this change the reference range has changed from 0.49-4.67 to 0.35-5.5 uIU/ml. 11/27/2005 6:09 AM CDT Jose Bowers MD CHEMISTRY ORDERABLES Final Resul t Performing Organization Address [facility] Phone Number INTERFACE SYSTEM Refer to clinic/hospital [...] Goal INR 3.0; range 2.5 - 3.5 POST-IA Goal INR 2.5; range 2.0 - 3.0 or Goal 3.0; range 2.5 - 3.5 Atrial Fibrillation Goal INR 2.5; range 2.0 - 3.0 Ischemic Stroke Goal INR 2.5; range 2.0 - 3.0 For additional information see Guidelines for Anticoagulation available from the pharmacy [facility] 11/27/2005 6:09 AM CDT Jose Bowers MD HEMATOLOGY ORDERABLES Final Resu lt Performing Organization Address [facility] Co de Phone Number INTERFACE SYSTEM Refer to clinic/hospital department * (ABNORMAL) C-REACTIVE PROTEIN (11/27/2005 6:09 AM CDT) CRP 1.19(H) 0.00 - 1.00 mg/dL INTERFACE SYSTEM 11/27/2005 6:09 AM CDT Jose Bowers MD CHEMISTRY ORDERABLES Final Resul t Performing Organization Address [facility] Co de Phone Number INTERFACE [...] INTERFACE SYSTEM Comment: As of 05 the [facility] Lab has changed testing methods. The new reference range is 25-100 The old referance range was 38-126 AST 26 8 - 33 U/L INTERFACE SYSTEM Comment: As of 05 the [facility] has changed testing methods. The new reference range is 8-33 The old referance range was Males 17-59 Females 14-36 ALT 27 4 - 36 IU/L INTERFACE SYSTEM Comment: As of 05 the [facility] has changed testing methods. The new reference range is 4-36 The old referance range was Males 21-72 Females 9-52 BILIRUBIN TOTAL 0.2(L) 0.3 - 1.2 mg/dL INTERFACE SYSTEM Comment: As of 05 the [facility] has changed testing methods. The new reference range is 0.3-1.2 The old referance range was 0.2-1.4 11/27/2005 6:09 AM CDT Jose Bowers MD CHEMISTRY ORDERABLES Final Resul t Performing Organization Address [facility] Phone Number INTERFACE SYSTEM Refer to clinic/hospital department * (ABNORMAL) SEDIMENTATION RATE (11/27/2005 6:09 AM CDT) ESR (SEDIMENTATION RATE) 25(H) 0 - 22 mm/hr INTERFACE SYSTEM 11/27/2005 6:09 AM CDT Jose Bowers MD HEMATOLOGY ORDERABLES Final Resu lt Performing Organization Address [facility] Phone Number INTERFACE SYSTEM Refer to clinic/hospital [...] ORDERABLES Final Resu lt Performing Organization Address [facility] de Phone [...] URINE ORDERABLES Final Result Performing Organization Address [facility] de Phone [...] IMPRESSION: Limited study. Nonspecific findings present. [facility] D: [id number] Dictated By: Marcus Eng M.D. [...] documented as of this encounter Care Teams Runway Model Relationship Specialty Start Date End Date Jose Bowers MD [address] [place] [id number] PCP - General 12/31/05 documented as of this encounter
[2025-03-04 16:23] LABS: Hematocrit 30.9 % (36-47); Hemoglobin 9.60 g/dL (11.27-16.99); Mean Corpuscular HGB Conc 31.1 g/dL (30-55); Mean Corpuscular Hemoglobin 30.2 pg (27-33); Mean Corpuscular Volume 97.2 fl (85-98); Nucleated Red Blood Cells % 0 %; Platelet Count 319 10^3/cmm (157-399); Red Blood Count 3.18 10^6/uL (3.85-5.65); White Blood Count 4.91 10^3/uL (3.29-11.43)
[2025-03-04 16:34] LABS: Glucose Urine UA 1+ (Normal); Nitrate Urine Positive (Negative); Specific Gravity, Urine 1.021 (1.005-1.030)
[2025-03-04 16:42] LABS: Alanine Aminotransferase 81 U/L (0-33); Albumin Level 2.8 g/dL (3.5-5.2); Alkaline Phosphatase 349 U/L (35-105); Anion Gap 19.3 (5-19); Aspartate Amino Transferase 89 U/L (0-32); Blood Urea Nitrogen 53 mg/dL (6-20); Calcium 8.8 mg/dL (8.5-10.5); Carbon Dioxide 15 mmol/L (22-29); Chloride 101 mmol/L (98-107); Creatinine Clr Calc Pharmacy 48.1339; Globulin 4.7 g/dL (1.3-4.6); Glucose 115 mg/dL (65-115); Osmolality Calculated 287 mOsm/kg (285-295); Potassium 4.3 mmol/L (3.5-5.1); Sodium 131 mmol/L (136-145); Total Protein 7.5 g/dL (6.6-8.7)
[2025-03-04 16:43] LABS: Lactic Sepsis W/Reflex 2.1 mmol/L (0.5-2.2)
[2025-03-04 17:05] LABS: Respiratory Syncytial Virus Ce NEGATIVE (Negative); SARS-CoV-2 PCR NEGATIVE (Negative)
[2025-03-04 18:04] LABS: Reflex Lactate Order REFLEX LACTIC ORDERD
[2025-03-04] MEDS: cefTRIAXone 1,000 mg SDV 1000 MG IVP (18:22)
--- NOTE | 2025-03-04 19:20 | PC.NURSE ---
Pt IV infiltrated upon entering room. Pt had 500 mL left of IV bolus. okayed not administering the remaining 500 mL.
== END 2025-03-04 22:25 | disposition home or self-care (01) ==
PROVIDERS: Emergency Provider Emergency Medicine; PCP Family Medicine
DX: N39.0 Urinary tract infection, site not specified (principal); E86.0 Dehydration; Z79.01 Long term (current) use of anticoagulants; Z11.52 Encounter for screening for COVID-19
CPT/HCPCS: 36415; 80053; 81001; 83605; 85025; 87040; 87077; 87086; 87150; 87186; 87205; 87637; 93005; 96374; 97597; 99284; A6210; J0696; J7030

== ENCOUNTER 2025-03-09 07:57 | Emergency (ER) | payer OTHER, MEDICAID, SELFPAY ==
--- OUTSIDE RECORDS SUMMARY | 2003-07-07 19:00 | XMS_ITS | Continuity of Care Document ---
Author Name [facility] Address [address] [place] [address] Organization [facility] Care Team Providers Care Geophysical Engineer Name Role Phone [facility] Unavailable Unavailable Allergies, Adverse Reactions, Alerts Substance Category Reaction Severity Reaction type Status Date Reported Comments Source penicillin Assertion Convulsion Severe Drug allergy Active [facility] vancomycin Assertion Drug allergy Active [facility] Ultram Assertion Itching Mild Drug allergy Active [facility] Tape - See Comment Assertion Allergy to substance Active [facility]
[2025-03-09 07:57] VITALS: BP 77/68; PULSE 86; RESP 18; TEMP 36.7; O2SAT 100; BMI 47.9
--- NOTE | 2025-03-09 08:00 | XR_ITS ---
WS: [id number] PORTABLE CHEST HISTORY: weakness COMPARISON: 09/30/2024 Vascular access catheter with termination near the cavoatrial junction. Lungs are clear and well expanded. No pleural effusion or pneumothorax. Cardiac size: Normal. Mediastinum/Aorta: Normal mediastinum. No osseous abnormality seen. XR/XR chest 1V portable [id number] IMPRESSION: Unremarkable portable chest.
--- NOTE | 2025-03-09 08:00 | CT_ITS ---
WS: [id number] CT HEAD NONCONTRAST HISTORY: weakness TECHNIQUE: Contiguous axial imaging performed through the brain. Bone and soft tissue windows. Sagittal and coronal reformats reviewed. All CT scans at [facility] use at least one of these dose optimization techniques: automated exposure control; mA and/or kV adjustment per patient size (includes targeted exams where dose is matched to clinical indication); or iterative reconstruction. DLP: 1188.89 mGy.cm COMPARISON: 08/05/2018 No acute intracranial hemorrhage, midline shift or mass effect. Mild symmetric atrophy. Tiny bilateral lacunar infarcts in the external capsules. No large territory infarct. Mild small vessel disease. Ventricles: Normal size with no hydrocephalus. No inferior displacement the cerebellar tonsils. Paranasal sinuses: As visualized are clear. Mastoid air cells: Well pneumatized. Calvarium and scalp: Skull is intact with no soft tissue edema or swelling. CT/CT head wo con* [id number] IMPRESSION: 1. No acute intracranial hemorrhage or edema. 2. Tiny bilateral lacunar infarcts in the external capsules. Mild small vessel disease.
--- OUTSIDE RECORDS SUMMARY | 2025-03-09 08:03 | XMS_ITS | Patient Health Record ---
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
--- OUTSIDE RECORDS SUMMARY | 2025-03-09 08:03 | XMS_ITS | Encounter Summary ---
Author Organization [facility] Address [address] [place] [address] Care Team Providers Care Database Programmer Name Role Phone Jose Bowers MD Primary [...] on file Legal Sex Female 6:28 AM [employer] Gender Identity Not on file Sexual Orientation [...] GLUCOSE POC 117(H) 60 - 100 mg/dL [facility] Venous blood specimen (specimen) 04/28/2008 12:22 PM CDT 04/29/2008 1:49 AM CDT us Riky Mejía MD POINT OF CARE TESTING Final Result Performing Organization Address [facility] de Phone Number INTERFACE SYSTEM Refer to clinic/hospital department [facility] CLIA# [id number] [address] [place] [address] * (ABNORMAL) POC GLUCOSE (04/28/2008 6:07 AM CDT) GLUCOSE POC 132(H) 60 - 100 mg/dL [facility] Venous blood specimen (specimen) 04/28/2008 6:07 AM CDT 04/29/2008 1:56 AM CDT us Riky Mejía MD POINT OF CARE TESTING Final Result Performing Organization Address [facility] Phone Number INTERFACE SYSTEM Refer to clinic/hospital department [facility] CLIA# [id number] [facility] [place] [address] * (ABNORMAL) BASIC METABOLIC PANEL (04/28/2008 5:15 AM CDT) ANION GAP 10 9 - 20 mEq/L [facility] SODIUM 137 136 - 145 mEq/L [facility] BUN 13 7 - 17 mg/dL [facility] CO2 30 22 - 32 mmol/l [facility] POTASSIUM 4.5 3.5 - 5.0 mEq/L [facility] Comment: Specimen slightly hemolyzed OSMOLALITY, CALCULATED 284 275 - 295 mOsm/Kg [facility] CREATININE 0.6(L) 0.7 - 1.2 mg/dL [facility] CALCIUM 9.0 8.4 - 10.5 mg/dL [facility] GLUCOSE 112(H) 70 - 110 mg/dL [facility] CHLORIDE 102 95 - 110 mEq/L [facility] Blood specimen (specimen) 04/28/2008 5:15 AM CDT 04/28/2008 5:29 AM CDT us Riky Mejía MD CHEMISTRY ORDERABLES Final Result Performing Organization Address [facility] de Phone Number INTERFACE SYSTEM Refer to clinic/hospital department [facility] CLIA# [id number] [address] [place] [address] * (ABNORMAL) POC GLUCOSE (04/27/2008 8:55 PM CDT) GLUCOSE POC 133(H) 60 - 100 mg/dL [facility] Venous blood specimen (specimen) 04/27/2008 8:55 PM CDT 04/28/2008 2:27 AM CDT us Riky Mejía MD POINT OF CARE TESTING Final Result Performing Organization Address [facility] Phone Number INTERFACE SYSTEM Refer to clinic/[facility] department [facility] CLIA# [id number] [facility] [place] [address] * (ABNORMAL) POC GLUCOSE (04/27/2008 4:38 PM CDT) GLUCOSE POC 112(H) 60 - 100 mg/dL [facility] COMMENT POC Follow Protocol [facility] Venous blood specimen (specimen) 04/27/2008 4:38 PM CDT 04/28/2008 12:35 AM CDT Riky Mejía MD POINT OF CARE TESTING Final Result Performing Organization Address [facility] de Phone Number INTERFACE SYSTEM Refer to clinic/hospital department [facility] CLIA# [id number] [address] [place] [address] * (ABNORMAL) POC GLUCOSE (04/27/2008 11:23 AM CDT) GLUCOSE POC 143(H) 60 - 100 mg/dL [facility] Venous blood specimen (specimen) 04/27/2008 11:23 AM CDT 04/28/2008 2:23 AM CDT Riky Mejía MD POINT OF CARE TESTING Final Result Performing Organization Address [facility] de Phone Number INTERFACE SYSTEM Refer to clinic/hospital department [facility] CLIA# [id number] [address] [place] [address] * (ABNORMAL) POC GLUCOSE (04/27/2008 6:38 AM CDT) GLUCOSE POC 122(H) 60 - 100 mg/dL [facility] Venous blood specimen (specimen) 04/27/2008 6:38 AM CDT 04/28/2008 2:33 AM CDT Riky Mejía MD POINT OF CARE TESTING Final Result Performing Organization Address [facility] de Phone Number INTERFACE SYSTEM Refer to clinic/[facility] CLIA# [id number] [address] [place] [address] * (ABNORMAL) POC GLUCOSE (04/26/2008 8:43 PM CDT) GLUCOSE POC 128(H) 60 - 100 mg/dL [facility] Venous blood specimen (specimen) 04/26/2008 8:43 PM CDT 04/27/2008 2:25 AM CDT Riky Mejía MD POINT OF CARE TESTING Final Result Performing Organization Address [facility] de Phone Number INTERFACE SYSTEM Refer to clinic/hospital department [facility] CLIA# [id number] [address] [place] [address] * (ABNORMAL) POC GLUCOSE (04/26/2008 4:53 PM CDT) GLUCOSE POC 113(H) 60 - 100 mg/dL [facility] Venous blood specimen (specimen) 04/26/2008 4:53 PM CDT 04/27/2008 2:26 AM CDT Riky Mejía MD POINT OF CARE TESTING Final Result Performing Organization Address [facility] Phone Number INTERFACE SYSTEM Refer to clinic/hospital department [facility] CLIA# [id number] [address] [place] [address] * (ABNORMAL) POC GLUCOSE (04/26/2008 11:28 AM CDT) GLUCOSE POC 125(H) 60 - 100 mg/dL [facility] Venous blood specimen (specimen) 04/26/2008 11:28 AM CDT 04/27/2008 2:25 AM CDT Riky Mejía MD POINT OF CARE TESTING Final Result Performing Organization Address [facility] de Phone Number INTERFACE SYSTEM Refer to clinic/hospital department [facility] CLIA# [id number] [address] [place] [address] * (ABNORMAL) POC GLUCOSE (04/26/2008 5:36 AM CDT) GLUCOSE POC 123(H) 60 - 100 mg/dL [facility] Venous blood specimen (specimen) 04/26/2008 5:36 AM CDT 04/27/2008 2:25 AM CDT Riky Mejía MD POINT OF CARE TESTING Final Result Performing Organization Address [facility] Phone Number INTERFACE SYSTEM Refer to clinic/hospital department [facility] CLIA# [id number] [address] [place] [address] * (ABNORMAL) TRANSFERRIN (04/26/2008 4:02 AM CDT) TRANSFERRIN 121.0(L) 204.0 - 376.0 mg/dL [facility] Blood specimen (specimen) 04/26/2008 4:02 AM CDT 04/26/2008 4:19 AM CDT Riky Mejía MD CHEMISTRY ORDERABLES Final Result Performing Organization Address [facility] Phone Number INTERFACE SYSTEM Refer to clinic/hospital department [facility] CLIA# [id number] [address] [place] [address] * PREALBUMIN (04/26/2008 4:02 AM CDT) PREALBUMIN 22.2 14.0 - 32.0 mg/dL [facility] Blood specimen (specimen) 04/26/2008 4:02 AM CDT 04/26/2008 4:19 AM CDT Riky Mejía MD CHEMISTRY ORDERABLES Final Result Performing Organization Address [facility] Phone Number INTERFACE SYSTEM Refer to clinic/[facility] CLIA# [id number] [address] [place] [address] * (ABNORMAL) PROTIME-INR (04/26/2008 4:02 AM CDT) PROTIME 16.1(H) 12.8 - 15.8 Secs [facility] Comment:As of 2007 not e change in normal range. INR 1.2 [facility] Comment: Expected Values for INR: DVT/PE Goal INR 2.5; range 2.0 - 3.0 Valve Replacement Tissue Goal INR 2.5; range 2.0 - 3.0 Mechanical Goal INR 3.0; range 2.5 - 3.5 POST-MO Goal INR 2.5; range 2.0 - 3.0 or Goal 3.0; range 2.5 - 3.5 Atrial Fibrillation Goal INR 2.5; range 2.0 - 3.0 Ischemic Stroke Goal INR 2.5; range 2.0 - 3.0 For additional information see Guidelines for Anticoagulation available from the pharmacy [facility]. [phone] Blood specimen (specimen) 04/26/2008 4:02 AM CDT 04/26/2008 4:19 AM CDT Riky Mejía MD HEMATOLOGY ORDERABLES Final Result INTERFACE SYSTEM Refer to clinic/hospital department [facility] CLIA# [id number] [address] [place] [address] * (ABNORMAL) CBC WITH DIFFERENTIAL (04/26/2008 4:02 AM CDT) BASOPHILS ABSOLUTE 0.1 0.0 - 0.2 K/ul [facility] HEMOGLOBIN 10.3(L) 12.0 - 16.0 g/dL [facility] MONOCYTES 11.6(H) 2.0 - 10.0 % [facility] RDW 18.2(H) 11.0 - 14.5 % [facility] MONOCYTE ABSOLUTE 0.9(H) 0.1 - 0.6 K/ul [facility] WBC 8.1 4.5 - 11.0 K/ul [facility] NEUTROPHILS 67.2 42.2 - 75.2 % [facility] MCH 29.3 27.0 - 34.0 pg [facility] NEUTROPHIL ABSOLUTE 5.5 2.0 - 8.0 K/ul [facility] HEMATOCRIT 33.7(L) 36.0 - 46.0 % [facility] PLATELETS 436 140 - 440 K/ul [facility] EOSINOPHIL ABSOLUTE 0.3 0.0 - 0.7 K/ul [facility] EOSINOPHILS 4.0 0.0 - 7.0 % [facility] PERIPHERAL BLOOD SMEAR REVIEW Automated Diff [facility] RBC 3.51(L) 4.20 - 5.40 Mil/ul [facility] MCHC 30.6 30.0 - 35.0 g/dL [facility] LYMPHOCYTE ABSOLUTE 1.3 1.2 - 4.0 K/ul [facility] LYMPHOCYTES 16.2(L) 24.0 - 44.0 % [facility] MCV 96.0 84.0 - 103.0 Fl [facility] BASOPHILS 1.0 0.0 - 1.0 % [facility] MPV 10.3 8.9 - 12.8 Fl [facility] Blood specimen (specimen) 04/26/2008 4:02 AM CDT 04/26/2008 4:19 AM CDT Narrative INTERFACE SYSTEM - 04/26/2008 4:35 AM CDT cbc with diff in am Riky Mejía MD HEMATOLOGY ORDERABLES Final Result INTERFACE SYSTEM Refer to clinic/hospital department [facility] CLIA# [id number] [address] [place] [address] * MAGNESIUM LEVEL (04/26/2008 4:02 AM CDT) MAGNESIUM 2.0 1.7 - 2.4 mg/dL [facility] Blood specimen (specimen) 04/26/2008 4:02 AM CDT 04/26/2008 4:19 AM CDT us Riky Mejía MD CHEMISTRY ORDERABLES Final Result Performing Organization Address [facility] Phone Number INTERFACE SYSTEM Refer to clinic/hospital department [facility] CLIA# [id number] [address] [place] [address] * TRIGLYCERIDE (04/26/2008 4:02 AM CDT) [facility] TRIGLYCERIDE 137 0 - 150 mg/dL [facility] Comment: On 11/10/2007, [facility] changed the triglyceride reference range to 0-150 mg/dl. This is the recommendation of the National Cholesterol Education Program (NCEP-ATPIII). Blood specimen (specimen) 04/26/2008 4:02 AM CDT 04/26/2008 4:19 AM CDT Riky Mejía MD CHEMISTRY ORDERABLES Final Result Performing Organization Address [facility] Phone Number INTERFACE SYSTEM Refer to clinic/hospital department [facility] CLIA# [id number] [address] [place] [address] * PHOSPHORUS (04/26/2008 4:02 AM CDT) [facility] PHOSPHORUS 4.1 2.5 - 4.6 mg/dL [facility] Blood specimen (specimen) 04/26/2008 4:02 AM CDT 04/26/2008 4:19 AM CDT Riky Mejía MD CHEMISTRY ORDERABLES Final Result Performing Organization Address [facility] Phone Number INTERFACE SYSTEM Refer to clinic/[facility] CLIA# [id number] [address] [place] [address] * (ABNORMAL) COMPREHENSIVE METABOLIC PANEL (04/26/2008 4:02 AM CDT) Pathologist [facility] OSMOLALITY, CALCULATED 284 275 - 295 mOsm/Kg [facility] GLOBULIN (CALC) 3.4 2.4 - 3.9 g/dL [facility] TOTAL PROTEIN 6.6 6.3 - 8.2 g/dL [facility] SODIUM 137 136 - 145 mEq/L [facility] BILIRUBIN TOTAL 0.8 0.3 - 1.2 mg/dL [facility] CO2 33(H) 22 - 32 mmol/l [facility] BUN 15 7 - 17 mg/dL [facility] AST 29 8 - 33 U/L [facility] ALBUMIN/GLOBULIN RATIO 0.9(L) 1.0 - 2.3 [facility] POTASSIUM 3.9 3.5 - 5.0 mEq/L [facility] ANION GAP 7(L) 9 - 20 mEq/L [facility] ALBUMIN 3.2(L) 3.5 - 5.0 g/dL [facility] CREATININE 0.6(L) 0.7 - 1.2 mg/dL [facility] ALT 27 4 - 36 IU/L [facility] CALCIUM 8.7 8.4 - 10.5 mg/dL [facility] GLUCOSE 110 70 - 110 mg/dL [facility] ALKALINE PHOSPHATASE 105(H) 25 - 100 U/L [facility] CHLORIDE 101 95 - 110 mEq/L [facility] Blood specimen (specimen) 04/26/2008 4:02 AM CDT 04/26/2008 4:19 AM CDT us Riky Mejía MD CHEMISTRY ORDERABLES Final Result INTERFACE SYSTEM Refer to clinic/hospital department [facility] CLIA# [id number] [address] [place] [address] * (ABNORMAL) BASIC METABOLIC PANEL (04/26/2008 4:02 AM CDT) GLUCOSE 110 70 - 110 mg/dL [facility] CHLORIDE 100 95 - 110 mEq/L [facility] ANION GAP 9 9 - 20 mEq/L [facility] SODIUM 137 136 - 145 mEq/L [facility] BUN 16 7 - 17 mg/dL [facility] CO2 32 22 - 32 mmol/l [facility] POTASSIUM 4.3 3.5 - 5.0 mEq/L [facility] OSMOLALITY, CALCULATED 285 275 - 295 mOsm/Kg [facility] CREATININE 0.5(L) 0.7 - 1.2 mg/dL [facility] CALCIUM 8.8 8.4 - 10.5 mg/dL [facility] Blood specimen (specimen) 04/26/2008 4:02 AM CDT 04/26/2008 4:19 AM CDT Riky Mejía MD CHEMISTRY ORDERABLES Final Result Performing Organization Address [facility] Phone Number INTERFACE SYSTEM Refer to clinic/hospital department [facility] CLIA# [id number] [address] [place] [address] * (ABNORMAL) POC GLUCOSE (04/25/2008 8:51 PM CDT) GLUCOSE POC 107(H) 60 - 100 mg/dL [facility] Venous blood specimen (specimen) 04/25/2008 8:51 PM CDT 04/26/2008 1:42 AM CDT Riky Mejía MD POINT OF CARE TESTING Final Result Performing Organization Address [facility] Phone Number INTERFACE SYSTEM Refer to clinic/hospital department [facility] CLIA# [id number] [address] [place] [address] * (ABNORMAL) POC GLUCOSE (04/25/2008 5:10 PM CDT) GLUCOSE POC 102(H) 60 - 100 mg/dL [facility] Venous blood specimen (specimen) 04/25/2008 5:10 PM CDT 04/26/2008 1:42 AM CDT Riky Mejía MD POINT OF CARE TESTING Final Result Performing Organization Address [facility] Phone Number INTERFACE SYSTEM Refer to clinic/hospital department [facility] CLIA# [id number] [address] [place] [address] * (ABNORMAL) POC GLUCOSE (04/25/2008 10:45 AM CDT) GLUCOSE POC 114(H) 60 - 100 mg/dL [facility] Venous blood specimen (specimen) 04/25/2008 10:45 AM CDT 04/26/2008 1:42 AM CDT Riky Mejía MD POINT OF CARE TESTING Final Result Performing Organization Address [facility] Phone Number INTERFACE SYSTEM Refer to clinic/hospital department [facility] CLIA# [id number] [address] [place] [address] * (ABNORMAL) POC GLUCOSE (04/25/2008 6:00 AM CDT) GLUCOSE POC 113(H) 60 - 100 mg/dL [facility] Venous blood specimen (specimen) 04/25/2008 6:00 AM CDT 04/26/2008 1:45 AM CDT Riky Mejía MD POINT OF CARE TESTING Final Result Performing Organization Address [facility] de Phone Number INTERFACE SYSTEM Refer to clinic/hospital department [facility] CLIA# [id number] [address] [place] [address] * (ABNORMAL) BASIC METABOLIC PANEL (04/25/2008 3:28 AM CDT) OSMOLALITY, CALCULATED 286 275 - 295 mOsm/Kg [facility] CREATININE 0.5(L) 0.7 - 1.2 mg/dL [facility] CALCIUM 8.9 8.4 - 10.5 mg/dL [facility] GLUCOSE 115(H) 70 - 110 mg/dL [facility] CHLORIDE 101 95 - 110 mEq/L [facility] SODIUM 136 136 - 145 mEq/L [facility] ANION GAP 10 9 - 20 mEq/L [facility] BUN 20(H) 7 - 17 mg/dL [facility] CO2 30 22 - 32 mmol/l [facility] POTASSIUM 4.9 3.5 - 5.0 mEq/L [facility] Blood specimen (specimen) 04/25/2008 3:28 AM CDT 04/25/2008 3:31 AM CDT Riky Mejía MD CHEMISTRY ORDERABLES Final Result Performing Organization Address [facility] Phone Number INTERFACE SYSTEM Refer to clinic/hospital department [facility] CLIA# [id number] [address] [place] [address] * (ABNORMAL) POC GLUCOSE (04/24/2008 8:30 PM CDT) GLUCOSE POC 121(H) 60 - 100 mg/dL [facility] Venous blood specimen (specimen) 04/24/2008 8:30 PM CDT 04/25/2008 1:43 AM CDT Riky Mejía MD POINT OF CARE TESTING Final Result Performing Organization Address [facility] Phone Number INTERFACE SYSTEM Refer to clinic/hospital department [facility] CLIA# [id number] [address] [place] [address] * (ABNORMAL) POC GLUCOSE (04/24/2008 5:10 PM CDT) GLUCOSE POC 109(H) 60 - 100 mg/dL [facility] Venous blood specimen (specimen) 04/24/2008 5:10 PM CDT 04/25/2008 1:43 AM CDT Riky Mejía MD POINT OF CARE TESTING Final Result Performing Organization Address [facility] de Phone Number INTERFACE SYSTEM Refer to clinic/hospital department [facility] CLIA# [id number] [address] [place] [address] * (ABNORMAL) POC GLUCOSE (04/24/2008 1:53 PM CDT) GLUCOSE POC 113(H) 60 - 100 mg/dL [facility] Venous blood specimen (specimen) 04/24/2008 1:53 PM CDT 04/25/2008 1:50 AM CDT Riky Mejía MD POINT OF CARE TESTING Final Result Performing Organization Address [facility] de Phone Number INTERFACE SYSTEM Refer to clinic/hospital department [facility] CLIA# [id number] [address] [place] [address] * (ABNORMAL) POC GLUCOSE (04/24/2008 11:40 AM CDT) GLUCOSE POC 160(H) 60 - 100 mg/dL [facility] Venous blood specimen (specimen) 04/24/2008 11:40 AM CDT 04/25/2008 1:50 AM CDT Riky Mejía MD POINT OF CARE TESTING Final Result Performing Organization Address [facility] de Phone Number INTERFACE SYSTEM Refer to clinic/hospital department [facility] CLIA# [id number] [address] [place] [address] * (ABNORMAL) POC GLUCOSE (04/24/2008 5:45 AM CDT) GLUCOSE POC 129(H) 60 - 100 mg/dL [facility] Venous blood specimen (specimen) 04/24/2008 5:45 AM CDT 04/25/2008 1:46 AM CDT Riky Mejía MD POINT OF CARE TESTING Final Result INTERFACE SYSTEM Refer to clinic/hospital department [facility] CLIA# [id number] [address] [place] [address] * (ABNORMAL) CBC WITH DIFFERENTIAL (04/24/2008 3:09 AM CDT) WBC 10.5 4.5 - 11.0 K/ul [facility] MCH 29.4 27.0 - 34.0 pg [facility] NEUTROPHIL ABSOLUTE 7.1 2.0 - 8.0 K/ul [facility] NEUTROPHILS 67.1 42.2 - 75.2 % [facility] HEMATOCRIT 32.8(L) 36.0 - 46.0 % [facility] EOSINOPHILS 4.3 0.0 - 7.0 % [facility] PLATELETS 491(H) 140 - 440 K/ul [facility] PERIPHERAL BLOOD SMEAR REVIEW Automated Diff [facility] EOSINOPHIL ABSOLUTE 0.5 0.0 - 0.7 K/ul [facility] RBC 3.44(L) 4.20 - 5.40 Mil/ul [facility] LYMPHOCYTES 17.3(L) 24.0 - 44.0 % [facility] MCHC 30.8 30.0 - 35.0 g/dL [facility] LYMPHOCYTE ABSOLUTE 1.8 1.2 - 4.0 K/ul [facility] MCV 95.3 84.0 - 103.0 Fl [facility] MPV 10.4 8.9 - 12.8 Fl [facility] BASOPHILS ABSOLUTE 0.1 0.0 - 0.2 K/ul [facility] BASOPHILS 1.3(H) 0.0 - 1.0 % [facility] HEMOGLOBIN 10.1(L) 12.0 - 16.0 g/dL [facility] RDW 17.8(H) 11.0 - 14.5 % [facility] MONOCYTE ABSOLUTE 1.1(H) 0.1 - 0.6 K/ul [facility] MONOCYTES 10.0 2.0 - 10.0 % [facility] Blood specimen (specimen) 04/24/2008 3:09 AM CDT 04/24/2008 3:21 AM CDT Riky Mejía MD HEMATOLOGY ORDERABLES Final Result Performing Organization Address [facility] Phone Number INTERFACE SYSTEM Refer to clinic/hospital department [facility] CLIA# [id number] [place] [address] * (ABNORMAL) BASIC METABOLIC PANEL (04/24/2008 3:09 AM CDT) BUN 20(H) 7 - 17 mg/dL [facility] CO2 31 22 - 32 mmol/l [facility] POTASSIUM 4.6 3.5 - 5.0 mEq/L [facility] OSMOLALITY, CALCULATED 286 275 - 295 mOsm/Kg [facility] CREATININE 0.5(L) 0.7 - 1.2 mg/dL [facility] CALCIUM 8.8 8.4 - 10.5 mg/dL [facility] GLUCOSE 106 70 - 110 mg/dL [facility] CHLORIDE 100 95 - 110 mEq/L [facility] ANION GAP 11 9 - 20 mEq/L [facility] SODIUM 137 136 - 145 mEq/L [facility] Blood specimen (specimen) 04/24/2008 3:09 AM CDT 04/24/2008 3:21 AM CDT Riky Mejía MD CHEMISTRY ORDERABLES Final Result Performing Organization Address [facility] Phone Number INTERFACE SYSTEM Refer to clinic/hospital department [facility] CLIA# [id number] [address] [place] [address] * (ABNORMAL) POC GLUCOSE (04/23/2008 8:56 PM CDT) GLUCOSE POC 132(H) 60 - 100 mg/dL [facility] Venous blood specimen (specimen) 04/23/2008 8:56 PM CDT 04/24/2008 1:58 AM CDT us Riky Mejía MD POINT OF CARE TESTING Final Result Performing Organization Address City/[facility] de Phone Number INTERFACE SYSTEM Refer to clinic/hospital department [facility] CLIA# [id number] [address] [place] [address] * (ABNORMAL) POC GLUCOSE (04/23/2008 4:37 PM CDT) GLUCOSE POC 129(H) 60 - 100 mg/dL [facility] Venous blood specimen (specimen) 04/23/2008 4:37 PM CDT 04/24/2008 1:58 AM CDT us Riky Mejía MD POINT OF CARE TESTING Final Result Performing Organization Address [facility] Phone Number INTERFACE SYSTEM Refer to clinic/hospital department [facility] CLIA# [id number] [address] [place] [address] * (ABNORMAL) POC GLUCOSE (04/23/2008 11:23 AM CDT) GLUCOSE POC 147(H) 60 - 100 mg/dL [facility] Venous blood specimen (specimen) 04/23/2008 11:23 AM CDT 04/24/2008 7:04 AM CDT us Riky Mejía MD POINT OF CARE TESTING Final Result Performing Organization Address [facility] de Phone Number INTERFACE SYSTEM Refer to clinic/hospital department [facility] CLIA# [id number] [address] [place] [address] * (ABNORMAL) POC GLUCOSE (04/23/2008 7:53 AM CDT) GLUCOSE POC 160(H) 60 - 100 mg/dL [facility] Venous blood specimen (specimen) 04/23/2008 7:53 AM CDT 04/24/2008 7:05 AM CDT Riky Mejía MD POINT OF CARE TESTING Final Result Performing Organization Address [facility] Phone Number INTERFACE SYSTEM Refer to clinic/hospital department [facility] CLIA# [id number] [address] [place] [address] * (ABNORMAL) BASIC METABOLIC PANEL (04/23/2008 3:33 AM CDT) BUN 18(H) 7 - 17 mg/dL [facility] CO2 30 22 - 32 mmol/l [facility] POTASSIUM 4.2 3.5 - 5.0 mEq/L [facility] OSMOLALITY, CALCULATED 283 275 - 295 mOsm/Kg [facility] CREATININE 0.4(L) 0.7 - 1.2 mg/dL [facility] CALCIUM 8.4 8.4 - 10.5 mg/dL [facility] GLUCOSE 131(H) 70 - 110 mg/dL [facility] CHLORIDE 104 95 - 110 mEq/L [facility] ANION GAP 5(L) 9 - 20 mEq/L [facility] SODIUM 135(L) 136 - 145 mEq/L [facility] Blood specimen (specimen) 04/23/2008 3:33 AM CDT 04/23/2008 3:39 AM CDT Riky Mejía MD CHEMISTRY ORDERABLES Final Result Performing Organization Address [facility] Phone Number INTERFACE SYSTEM Refer to clinic/hospital department [facility] CLIA# [id number] [address] [place] [address] * (ABNORMAL) POC GLUCOSE (04/23/2008 3:22 AM CDT) GLUCOSE POC 130(H) 60 - 100 mg/dL [facility] Venous blood specimen (specimen) 04/23/2008 3:22 AM CDT 04/24/2008 7:07 AM CDT Riky Mejía MD POINT OF CARE TESTING Final Result Performing Organization Address [facility] de Phone Number INTERFACE SYSTEM Refer to clinic/hospital department [facility] CLIA# [id number] [address] [place] [address] * (ABNORMAL) POC GLUCOSE (04/22/2008 11:30 PM CDT) GLUCOSE POC 155(H) 60 - 100 mg/dL [facility] Venous blood specimen (specimen) 04/22/2008 11:30 PM CDT 04/23/2008 7:12 AM CDT Riky Mejía MD POINT OF CARE TESTING Final Result Performing Organization Address [facility] Phone Number INTERFACE SYSTEM Refer to clinic/hospital department [facility] CLIA# [id number] [address] [place] [address] * (ABNORMAL) POC GLUCOSE (04/22/2008 7:54 PM CDT) GLUCOSE POC 158(H) 60 - 100 mg/dL [facility] Venous blood specimen (specimen) 04/22/2008 7:54 PM CDT 04/23/2008 3:46 PM CDT Riky Mejía MD POINT OF CARE TESTING Final Result Performing Organization Address [facility] de Phone Number INTERFACE SYSTEM Refer to clinic/hospital department [facility] CLIA# [id number] [address] [place] [address] * (ABNORMAL) POC GLUCOSE (04/22/2008 4:09 PM CDT) GLUCOSE POC 129(H) 60 - 100 mg/dL [facility] Venous blood specimen (specimen) 04/22/2008 4:09 PM CDT 04/23/2008 3:46 PM CDT Riky Mejía MD POINT OF CARE TESTING Final Result Performing Organization Address [facility] de Phone Number INTERFACE SYSTEM Refer to clinic/hospital department [facility] CLIA# [id number] [address] [place] [address] * (ABNORMAL) POC GLUCOSE (04/22/2008 11:36 AM CDT) GLUCOSE POC 118(H) 60 - 100 mg/dL [facility] Venous blood specimen (specimen) 04/22/2008 11:36 AM CDT 04/23/2008 7:12 AM CDT Riky Mejía MD POINT OF CARE TESTING Final Result Performing Organization Address [facility] Phone Number INTERFACE SYSTEM Refer to clinic/hospital department [facility] CLIA# [id number] [address] [place] [address] * (ABNORMAL) POC GLUCOSE (04/22/2008 7:55 AM CDT) GLUCOSE POC 160(H) 60 - 100 mg/dL [facility] Venous blood specimen (specimen) 04/22/2008 7:55 AM CDT 04/24/2008 7:07 AM CDT Riky Mejía MD POINT OF CARE TESTING Final Result Performing Organization Address [facility] de Phone Number INTERFACE SYSTEM Refer to clinic/hospital department [facility] CLIA# [id number] [address] [place] [address] * (ABNORMAL) BASIC METABOLIC PANEL (04/22/2008 3:26 AM CDT) BUN 15 7 - 17 mg/dL [facility] CO2 28 22 - 32 mmol/l [facility] OSMOLALITY, CALCULATED 300(H) 275 - 295 mOsm/Kg [facility] POTASSIUM 3.0(L) 3.5 - 5.0 mEq/L [facility] CREATININE 0.2(L) 0.7 - 1.2 mg/dL [facility] CALCIUM 6.7(L) 8.4 - 10.5 mg/dL [facility] GLUCOSE 109 70 - 110 mg/dL [facility] CHLORIDE 109 95 - 110 mEq/L [facility] SODIUM 147(H) 136 - 145 mEq/L [facility] ANION GAP 13 9 - 20 mEq/L [facility] Blood specimen (specimen) 04/22/2008 3:26 AM CDT 04/22/2008 3:31 AM CDT Riky Mejía MD CHEMISTRY ORDERABLES Final Result Performing Organization Address [facility] mi Phone Number INTERFACE SYSTEM Refer to clinic/hospital department [facility] CLIA# [id number] [address] [place] [address] * POC GLUCOSE (04/22/2008 3:17 AM CDT) GLUCOSE POC 73 60 - 100 mg/dL [facility] Venous blood specimen (specimen) 04/22/2008 3:17 AM CDT 04/22/2008 6:51 AM CDT Riky Mejía MD POINT OF CARE TESTING Final Result Performing Organization Address [facility] Phone Number INTERFACE SYSTEM Refer to clinic/hospital department [facility] CLIA# [id number] [address] [place] [address] * (ABNORMAL) POC GLUCOSE (04/21/2008 11:17 PM CDT) GLUCOSE POC 130(H) 60 - 100 mg/dL [facility] Venous blood specimen (specimen) 04/21/2008 11:17 PM CDT 04/22/2008 6:51 AM CDT us Riky Mejía MD POINT OF CARE TESTING Final Result Performing Organization Address [facility] de Phone Number INTERFACE SYSTEM Refer to clinic/hospital department [facility] CLIA# [id number] [address] [place] [address] * (ABNORMAL) POC GLUCOSE (04/21/2008 7:59 PM CDT) GLUCOSE POC 135(H) 60 - 100 mg/dL [facility] Venous blood specimen (specimen) 04/21/2008 7:59 PM CDT 04/22/2008 6:51 AM CDT us Riky Mejía MD POINT OF CARE TESTING Final Result Performing Organization Address [facility] de Phone Number INTERFACE SYSTEM Refer to clinic/hospital department [facility] CLIA# [id number] [address] [place] [address] * (ABNORMAL) POC GLUCOSE (04/21/2008 4:29 PM CDT) GLUCOSE POC 144(H) 60 - 100 mg/dL [facility] COMMENT POC Follow Protocol [facility] Venous blood specimen (specimen) 04/21/2008 4:29 PM CDT 04/22/2008 6:51 AM CDT us Riky Mejía MD POINT OF CARE TESTING Final Result Performing Organization Address [facility] de Phone Number INTERFACE SYSTEM Refer to clinic/hospital department [facility] CLIA# [id number] [address] [place] [address] * (ABNORMAL) POC GLUCOSE (04/21/2008 1:17 PM CDT) COMMENT POC Follow Protocol [facility] GLUCOSE POC 145(H) 60 - 100 mg/dL [facility] Venous blood specimen (specimen) 04/21/2008 1:17 PM CDT 04/22/2008 6:51 AM CDT Riky Mejía MD POINT OF CARE TESTING Final Result Performing Organization Address [facility] Phone Number INTERFACE SYSTEM Refer to clinic/hospital department [facility] CLIA# [id number] [address] [place] [address] * POTASSIUM LEVEL (04/21/2008 7:33 AM CDT) POTASSIUM 4.2 3.5 - 5.0 mEq/L [facility] Comment: Specimen slightly hemolyzed Blood specimen (specimen) 04/21/2008 7:33 AM CDT 04/21/2008 7:33 AM CDT Riky Mejía MD CHEMISTRY ORDERABLES Final Result Performing Organization Address [facility] Phone Number INTERFACE SYSTEM Refer to clinic/hospital department [facility] CLIA# [id number] [address] [place] [address] * (ABNORMAL) POC GLUCOSE (04/21/2008 7:26 AM CDT) GLUCOSE POC 146(H) 60 - 100 mg/dL [facility] Venous blood specimen (specimen) 04/21/2008 7:26 AM CDT 04/22/2008 6:51 AM CDT Riky Mejía MD POINT OF CARE TESTING Final Result Performing Organization Address [facility] Phone Number INTERFACE SYSTEM Refer to clinic/hospital department [facility] CLIA# [id number] [address] [place] [address] * (ABNORMAL) POC GLUCOSE (04/21/2008 2:58 AM CDT) Pathologist [facility] GLUCOSE POC 128(H) 60 - 100 mg/dL [facility] Venous blood specimen (specimen) 04/21/2008 2:58 AM CDT 04/21/2008 7:32 AM CDT Riky Mejía MD POINT OF CARE TESTING Final Result Performing Organization Address [facility] de Phone Number INTERFACE SYSTEM Refer to clinic/hospital department [facility] CLIA# [id number] [address] [place] [address] * (ABNORMAL) BASIC METABOLIC PANEL (04/21/2008 2:00 AM CDT) Pathologist [facility] ANION GAP 7(L) 9 - 20 mEq/L [facility] SODIUM 137 136 - 145 mEq/L [facility] BUN 19(H) 7 - 17 mg/dL [facility] CO2 36(H) 22 - 32 mmol/l [facility] POTASSIUM 3.8 3.5 - 5.0 mEq/L [facility] OSMOLALITY, CALCULATED 287 275 - 295 mOsm/Kg [facility] CREATININE 0.4(L) 0.7 - 1.2 mg/dL [facility] CALCIUM 8.4 8.4 - 10.5 mg/dL [facility] GLUCOSE 142(H) 70 - 110 mg/dL [facility] CHLORIDE 98 95 - 110 mEq/L [facility] Blood specimen (specimen) 04/21/2008 2:00 AM CDT 04/21/2008 2:00 AM CDT Riky Mejía MD CHEMISTRY ORDERABLES Final Result Performing Organization Address [facility] de Phone Number INTERFACE SYSTEM Refer to clinic/hospital department [facility] CLIA# [id number] [address] [place] [address] * (ABNORMAL) POC GLUCOSE (04/20/2008 11:57 PM CDT) Pathologist [facility] GLUCOSE POC 142(H) 60 - 100 mg/dL [facility] Venous blood specimen (specimen) 04/20/2008 11:57 PM CDT 04/21/2008 12:09 AM CDT Riky Mejía MD POINT OF CARE TESTING Final Result Performing Organization Address [facility] de Phone Number INTERFACE SYSTEM Refer to clinic/hospital department [facility] CLIA# [id number] [facility] [place] [address] * (ABNORMAL) BASIC METABOLIC PANEL (04/20/2008 11:40 PM CDT) [facility] POTASSIUM 3.8 3.5 - 5.0 mEq/L [facility] Comment: Specimen slightly hemolyzed OSMOLALITY, CALCULATED 286 275 - 295 mOsm/Kg [facility] CREATININE 0.5(L) 0.7 - 1.2 mg/dL [facility] CALCIUM 8.7 8.4 - 10.5 mg/dL [facility] GLUCOSE 119(H) 70 - 110 mg/dL [facility] CHLORIDE 95 95 - 110 mEq/L [facility] ANION GAP 13 9 - 20 mEq/L [facility] SODIUM 137 136 - 145 mEq/L [facility] BUN 20(H) 7 - 17 mg/dL [facility] CO2 33(H) 22 - 32 mmol/l [facility] Blood specimen (specimen) 04/20/2008 11:40 PM CDT 04/21/2008 5:43 AM CDT us Riky Mejía MD CHEMISTRY ORDERABLES Final Result Performing Organization Address [facility] Co de Phone Number INTERFACE SYSTEM Refer to clinic/hospital department [facility] CLIA# [id number] [address] [place] [address] * (ABNORMAL) POC GLUCOSE (04/20/2008 7:17 PM CDT) GLUCOSE POC 134(H) 60 - 100 mg/dL [facility] Venous blood specimen (specimen) 04/20/2008 7:17 PM CDT 04/21/2008 12:00 AM CDT Riky Mejía MD POINT OF CARE TESTING Final Result Performing Organization Address [facility] de Phone Number INTERFACE SYSTEM Refer to clinic/hospital department [facility] CLIA# [id number] [address] [place] [address] * POTASSIUM LEVEL (04/20/2008 4:09 PM CDT) POTASSIUM 4.1 3.5 - 5.0 mEq/L [facility] Blood specimen (specimen) 04/20/2008 4:09 PM CDT 04/20/2008 4:09 PM CDT Riky Mejía MD CHEMISTRY ORDERABLES Final Result Performing Organization Address [facility] de Phone Number INTERFACE SYSTEM Refer to clinic/hospital department [facility] CLIA# [id number] [address] [place] [address] * (ABNORMAL) POC GLUCOSE (04/20/2008 3:59 PM CDT) GLUCOSE POC 118(H) 60 - 100 mg/dL [facility] Venous blood specimen (specimen) 04/20/2008 3:59 PM CDT 04/21/2008 12:00 AM CDT Riky Mejía MD POINT OF CARE TESTING Final Result Performing Organization Address [facility] de Phone Number INTERFACE SYSTEM Refer to clinic/hospital department [facility] CLIA# [id number] [address] [place] [address] * (ABNORMAL) POC GLUCOSE (04/20/2008 12:02 PM CDT) GLUCOSE POC 158(H) 60 - 100 mg/dL [facility] Venous blood specimen (specimen) 04/20/2008 12:02 PM CDT 04/21/2008 12:00 AM CDT Riky Mejía MD POINT OF CARE TESTING Final Result INTERFACE SYSTEM Refer to clinic/hospital department [facility] CLIA# [id number] [address] [place] [address] * (ABNORMAL) POC ISTAT EG 7+ (04/20/2008 10:06 AM CDT) SPECIMEN TYPE Arterial [facility] Comment: Test Performed By [id number] Pulse OX: 97 Hemoglobin calculated from Hematocrit result PCO2 TEMP CORRECT 48(H) 35 - 45 mmHg [facility] HEMOGLOBIN POC 10.5 +/-3 g/dL 12.0 - 16.0 g/dL [facility] POTASSIUM 3.8 3.5 - 4.9 mEq/L [facility] PH TEMP CORRECT 7.47(H) 7.35 - 7.45 Unit [facility] HCO3 (CALC) POC 35.4(H) 22.0 - 26.0 mmol/l [facility] TCO2 (CALC) POC 37(H) 23 - 27 mmol/l [facility] FIO2 40 [facility] PO2 90 80 - 105 mmHg [facility] CALCIUM IONIZED 1.06(L) 1.12 - 1.32 mmol/l [facility] HEMATOCRIT ABG 31(L) 38 - 51 % [facility] PCO2 POC 48(H) 35 - 45 mmHg [facility] SODIUM 134(L) 138 - 146 mEq/L [facility] BASE EXCESS 12(H) -2 - 3 mmol/l [facility] PH 7.47(H) 7.35 - 7.45 Unit [facility] O2 SATURATION 97 95 - 98 % [facility] PO2 TEMP CORRECT 90 80 - 105 mmHg [facility] Arterial blood specimen (specimen) 04/20/2008 10:06 AM CDT 04/20/2008 11:14 AM CDT us Riky Mejía MD POINT OF CARE TESTING COM F inal Result Performing Organization Address [facility] de Phone Number INTERFACE SYSTEM Refer to clinic/hospital department [facility] CLIA# [id number] [address] [place] [address] * POTASSIUM LEVEL (04/20/2008 7:15 AM CDT) POTASSIUM 4.5 3.5 - 5.0 mEq/L [facility] Blood specimen (specimen) 04/20/2008 7:15 AM CDT 04/20/2008 7:20 AM CDT us Riky Mejía MD CHEMISTRY ORDERABLES Final Result Performing Organization Address [facility] de Phone Number INTERFACE SYSTEM Refer to clinic/hospital department [facility] CLIA# [id number] [address] [place] [address] * (ABNORMAL) POC GLUCOSE (04/20/2008 7:11 AM CDT) GLUCOSE POC 138(H) 60 - 100 mg/dL [facility] Venous blood specimen (specimen) 04/20/2008 7:11 AM CDT 04/20/2008 11:59 PM CDT us Riky Mejía MD POINT OF CARE TESTING Final Result Performing Organization Address [facility] de Phone Number INTERFACE SYSTEM Refer to clinic/hospital department [facility] CLIA# [id number] [address] [place] [address] * (ABNORMAL) POC ISTAT EG 7+ (04/20/2008 4:30 AM CDT) FIO2 30 [facility] HEMATOCRIT ABG 29(L) 38 - 51 % [facility] PO2 84 80 - 105 mmHg [facility] CALCIUM IONIZED 1.11(L) 1.12 - 1.32 mmol/l [facility] PCO2 POC 44 35 - 45 mmHg [facility] BASE EXCESS 14(H) -2 - 3 mmol/l [facility] SODIUM 131(L) 138 - 146 mEq/L [facility] PH 7.53(H) 7.35 - 7.45 Unit [facility] PO2 TEMP CORRECT 84 80 - 105 mmHg [facility] O2 SATURATION 97 95 - 98 % [facility] SPECIMEN TYPE Arterial [facility] Comment: Test Performed By [id number] PEEP: 06 Pressure Support: 14 Pulse OX: 96 Hemoglobin calculated from Hematocrit result PCO2 TEMP CORRECT 44 35 - 45 mmHg [facility] POTASSIUM 4.0 3.5 - 4.9 mEq/L [facility] HEMOGLOBIN POC 9.9 +/-3 g/dL 12.0 - 16.0 g/dL [facility] PH TEMP CORRECT 7.53(H) 7.35 - 7.45 Unit [facility] TCO2 (CALC) POC 38(H) 23 - 27 mmol/l [facility] HCO3 (CALC) POC 36.4(H) 22.0 - 26.0 mmol/l [facility] Arterial blood specimen (specimen) 04/20/2008 4:30 AM CDT 04/20/2008 5:54 AM CDT us Riky Mejía MD POINT OF CARE TESTING COM F inal Result INTERFACE SYSTEM Refer to clinic/hospital department [facility] CLIA# [id number] [address] [place] [address] * (ABNORMAL) DIFFERENTIAL, MANUAL (04/20/2008 4:04 AM CDT) POIKILOCYTES 1+(A) None Seen [facility] MONOCYTE 9 4 - 10 % [facility] RBC MORPHOLOGY Abnormal(A ) Normal [facility] BANDS 11(H) 0 - 6 % [facility] POLYCHROMASIA 1+(A) None Seen [facility] EOSINOPHILS 1 0 - 3 % [facility] ANISOCYTOSIS 1+(A) None Seen [facility] PLATELET EST. Normal Normal [facility] LYMPHOCYTES 17(L) 24 - 44 % [facility] NEUTROPHILS, SEG 62 36 - 66 % [facility] Blood specimen (specimen) 04/20/2008 4:04 AM CDT 04/20/2008 4:16 AM CDT Narrative INTERFACE SYSTEM - 04/20/2008 5:12 AM CDT Differential ordered by policy. Riky Mejía MD HEMATOLOGY ORDERABLES COM F inal Result INTERFACE SYSTEM Refer to clinic/hospital department [facility] CLIA# [id number] [place] [address] * (ABNORMAL) PT AND APTT (04/20/2008 4:04 AM CDT) PTT 31.3 22.5 - 36.5 Secs [facility] Comment: Therapeutic Range: Hi-level PE/DVT heparin protocol 80.1 -95.0 sec Lo-level PE/DVT heparin protocol 67.1 - 80.0 sec Cardiac Heparin Protocol 67.1 - 85.0 sec Neuro Heparin Protocol 67.1 - 80.0 sec As of 09/25/2007 note change in APTT Normal Range. PROTIME 17.4(H) 12.8 - 15.8 Secs [facility] Comment:As of 2007 not e change in normal range. INR 1.3 [facility] Comment: Expected Values for INR: DVT/PE Goal INR 2.5; range 2.0 - 3.0 Valve Replacement Tissue Goal INR 2.5; range 2.0 - 3.0 Mechanical Goal INR 3.0; range 2.5 - 3.5 POST-MO Goal INR 2.5; range 2.0 - 3.0 or Goal 3.0; range 2.5 - 3.5 Atrial Fibrillation Goal INR 2.5; range 2.0 - 3.0 Ischemic Stroke Goal INR 2.5; range 2.0 - 3.0 For additional information see Guidelines for Anticoagulation available from the pharmacy [facility]. [phone] Blood specimen (specimen) 04/20/2008 4:04 AM CDT 04/20/2008 4:16 AM CDT Riky Mejía MD HEMATOLOGY ORDERABLES Edite d INTERFACE SYSTEM Refer to clinic/hospital department [facility] CLIA# [id number] [address] [place] [id number] * (ABNORMAL) CBC WITH DIFFERENTIAL (04/20/2008 4:04 AM CDT) HEMATOCRIT 30.6(L) 36.0 - 46.0 % [facility] PLATELETS 436 140 - 440 K/ul [facility] RBC 3.30(L) 4.20 - 5.40 Mil/ul [facility] MCHC 32.0 30.0 - 35.0 g/dL [facility] MCV 92.7 84.0 - 103.0 Fl [facility] MPV 10.2 8.9 - 12.8 Fl [facility] HEMOGLOBIN 9.8(L) 12.0 - 16.0 g/dL [facility] RDW 17.3(H) 11.0 - 14.5 % [facility] WBC 13.0(H) 4.5 - 11.0 K/ul [facility] MCH 29.7 27.0 - 34.0 pg [facility] Blood specimen (specimen) 04/20/2008 4:04 AM CDT 04/20/2008 4:16 AM CDT Riky Mejía MD HEMATOLOGY ORDERABLES Edite d Performing Organization Address [facility] Phone Number INTERFACE SYSTEM Refer to clinic/hospital department [facility] CLIA# [id number] [address] [place] [address] * (ABNORMAL) BASIC METABOLIC PANEL (04/20/2008 4:04 AM CDT) BUN 19(H) 7 - 17 mg/dL [facility] CO2 33(H) 22 - 32 mmol/l [facility] POTASSIUM 4.1 3.5 - 5.0 mEq/L [facility] OSMOLALITY, CALCULATED 280 275 - 295 mOsm/Kg [facility] CREATININE 0.5(L) 0.7 - 1.2 mg/dL [facility] CALCIUM 8.6 8.4 - 10.5 mg/dL [facility] GLUCOSE 146(H) 70 - 110 mg/dL [facility] CHLORIDE 97 95 - 110 mEq/L [facility] ANION GAP 7(L) 9 - 20 mEq/L [facility] SODIUM 133(L) 136 - 145 mEq/L [facility] Blood specimen (specimen) 04/20/2008 4:04 AM CDT 04/20/2008 4:40 AM CDT us Riky Mejía MD CHEMISTRY ORDERABLES Final Result Performing Organization Address [facility] Phone Number INTERFACE SYSTEM Refer to clinic/hospital department [facility] CLIA# [id number] [address] [place] [address] * (ABNORMAL) POC GLUCOSE (04/20/2008 3:59 AM CDT) GLUCOSE POC 160(H) 60 - 100 mg/dL [facility] Venous blood specimen (specimen) 04/20/2008 3:59 AM CDT 04/20/2008 6:38 AM CDT Riky Mejía MD POINT OF CARE TESTING Final Result Performing Organization Address [facility] Phone Number INTERFACE SYSTEM Refer to clinic/hospital department [facility] CLIA# [id number] [address] [place] [address] * POTASSIUM LEVEL (04/19/2008 11:37 PM CDT) POTASSIUM 4.3 3.5 - 5.0 mEq/L [facility] Blood specimen (specimen) 04/19/2008 11:37 PM CDT 04/19/2008 11:46 PM CDT Riky Mejía MD CHEMISTRY ORDERABLES Final Result Performing Organization Address [facility] Phone Number INTERFACE SYSTEM Refer to clinic/hospital [facility] CLIA# [id number] [address] [place] [address] * (ABNORMAL) POC GLUCOSE (04/19/2008 11:30 PM CDT) GLUCOSE POC 156(H) 60 - 100 mg/dL [facility] Venous blood specimen (specimen) 04/19/2008 11:30 PM CDT 04/20/2008 6:37 AM CDT us Riky Mejía MD POINT OF CARE TESTING Final Result Performing Organization Address [facility] Phone Number INTERFACE SYSTEM Refer to clinic/hospital [facility] CLIA# [id number] [address] [place] [address] * (ABNORMAL) DIFFERENTIAL, MANUAL (04/19/2008 8:35 PM CDT) MONOCYTE 12(H) 4 - 10 % [facility] ANISOCYTOSIS 1+(A) None Seen [facility] BANDS 18(H) 0 - 6 % [facility] PLATELET EST. Normal Normal [facility] METAMYELOCYTE 2(H) 0 - 1 % [facility] POLYCHROMASIA 1+(A) None Seen [facility] LYMPHOCYTES 6(L) 24 - 44 % [facility] RBC MORPHOLOGY Abnormal(A ) Normal [facility] NEUTROPHILS, SEG 57 36 - 66 % [facility] MYELOCYTES 5(H) <=1 % [facility] GIANT PLATELETS Present(A) [facility] Blood specimen (specimen) 04/19/2008 8:35 PM CDT 04/19/2008 8:35 PM CDT Narrative INTERFACE SYSTEM - 04/19/2008 10:07 PM CDT Differential ordered by policy. Riky Mejía MD HEMATOLOGY ORDERABLES COM F inal Result INTERFACE SYSTEM Refer to clinic/hospital department [facility] CLIA# [id number] [address] [place] [address] * (ABNORMAL) PT AND APTT (04/19/2008 8:35 PM CDT) INR 1.3 [facility] Comment: Expected Values for INR: DVT/PE Goal INR 2.5; range 2.0 - 3.0 Valve Replacement Tissue Goal INR 2.5; range 2.0 - 3.0 Mechanical Goal INR 3.0; range 2.5 - 3.5 POST-MO Goal INR 2.5; range 2.0 - 3.0 or Goal 3.0; range 2.5 - 3.5 Atrial Fibrillation Goal INR 2.5; range 2.0 - 3.0 Ischemic Stroke Goal INR 2.5; range 2.0 - 3.0 For additional information see Guidelines for Anticoagulation available from the pharmacy [facility]. [phone] PROTIME 17.0(H) 12.8 - 15.8 Secs [facility] Comment:As of 2007 not e change in normal range. PTT 33.0 22.5 - 36.5 Secs [facility] Comment: Therapeutic Range: Hi-level PE/DVT heparin [...] HEMATOLOGY ORDERABLES Edite d Performing Organization Address City/State/[facility] Co de Phone Number INTERFACE SYSTEM Refer to clinic/hospital department [facility] CLIA# [id number] [address] [place] [address] * (ABNORMAL) CBC WITH DIFFERENTIAL (04/19/2008 8:35 PM CDT) RBC 3.37(L) 4.20 - 5.40 Mil/ul [facility] MCHC 31.6 30.0 - 35.0 g/dL [facility] LYMPHOCYTE ABSOLUTE 1.8 1.2 - 4.0 K/ul [facility] LYMPHOCYTES 12.2(L) 24.0 - 44.0 % [facility] MCV 92.9 84.0 - 103.0 Fl [facility] BASOPHILS 0.9 0.0 - 1.0 % [facility] MPV 10.4 8.9 - 12.8 Fl [facility] NRBC 1 <=1 [facility] BASOPHILS ABSOLUTE 0.1 0.0 - 0.2 K/ul [facility] HEMOGLOBIN 9.9(L) 12.0 - 16.0 g/dL [facility] MONOCYTES 10.2(H) 2.0 - 10.0 % [facility] RDW 17.4(H) 11.0 - 14.5 % [facility] MONOCYTE ABSOLUTE 1.5(H) 0.1 - 0.6 K/ul [facility] NEUTROPHILS 75.3(H) 42.2 - 75.2 % [facility] MCH 29.4 27.0 - 34.0 pg [facility] WBC 14.9(H) 4.5 - 11.0 K/ul [facility] Comment: WBC Corrected for Nucleated RBC'S NEUTROPHIL ABSOLUTE 11.3(H) 2.0 - 8.0 K/ul [facility] HEMATOCRIT 31.3(L) 36.0 - 46.0 % [facility] PLATELETS 459(H) 140 - 440 K/ul [facility] EOSINOPHIL ABSOLUTE 0.2 0.0 - 0.7 K/ul [facility] EOSINOPHILS 1.4 0.0 - 7.0 % [facility] Blood specimen (specimen) 04/19/2008 8:35 PM CDT 04/19/2008 8:35 PM CDT us Riky Mejía MD HEMATOLOGY ORDERABLES Edite d Performing Organization Address City/[facility] Co de Phone Number INTERFACE SYSTEM Refer to clinic/hospital department [facility] CLIA# [id number] [address] [place] [address] * (ABNORMAL) POC GLUCOSE (04/19/2008 8:31 PM CDT) GLUCOSE POC 115(H) 60 - 100 mg/dL [facility] Venous blood specimen (specimen) 04/19/2008 8:31 PM CDT 04/20/2008 6:37 AM CDT Riky Mejía MD POINT OF CARE TESTING Final Result Performing Organization Address City/[facility] Co de Phone Number INTERFACE SYSTEM Refer to clinic/hospital department [facility] CLIA# [id number] [address] [place] [address] * XR CHEST PA OR AP (04/19/2008 [...] GLUCOSE POC 125(H) 60 - 100 mg/dL [facility] Venous blood specimen (specimen) 04/19/2008 4:58 PM CDT 04/20/2008 7:00 AM CDT Riky Mejía MD POINT OF CARE TESTING Final Result Performing Organization Address [facility] Phone Number INTERFACE SYSTEM Refer to clinic/hospital department [facility] CLIA# [id number] [address] [place] [address] * POTASSIUM LEVEL (04/19/2008 4:30 PM CDT) POTASSIUM 4.0 3.5 - 5.0 mEq/L [facility] Blood specimen (specimen) 04/19/2008 4:30 PM CDT 04/19/2008 4:30 PM CDT Riky Mejía MD CHEMISTRY ORDERABLES Final Result Performing Organization Address [facility] Phone Number INTERFACE SYSTEM Refer to clinic/hospital department [facility] CLIA# [id number] [address] [place] [address] * (ABNORMAL) POC GLUCOSE (04/19/2008 12:04 PM CDT) GLUCOSE POC 139(H) 60 - 100 mg/dL [facility] Venous blood specimen (specimen) 04/19/2008 12:04 PM CDT 04/20/2008 7:00 AM CDT us Riky Mejía MD POINT OF CARE TESTING Final Result Performing Organization Address [facility] Phone Number INTERFACE SYSTEM Refer to clinic/hospital department [facility] CLIA# [id number] [address] [place] [address] * (ABNORMAL) POC GLUCOSE (04/19/2008 8:28 AM CDT) GLUCOSE POC 144(H) 60 - 100 mg/dL [facility] Venous blood specimen (specimen) 04/19/2008 8:28 AM CDT 04/20/2008 7:00 AM CDT Riky Mejía MD POINT OF CARE TESTING Final Result INTERFACE SYSTEM Refer to clinic/hospital department [facility] CLIA# [id number] [address] [place] [address] * XR CHEST PA OR AP (04/19/2008 [...] 3:20 AM CDT) ANISOCYTOSIS 1+(A) None Seen [facility] LYMPHOCYTES 15(L) 24 - 44 % [facility] MYELOCYTES 1 <=1 % [facility] MONOCYTE 4 4 - 10 % [facility] NEUTROPHILS, SEG 73(H) 36 - 66 % [facility] POIKILOCYTES 1+(A) None Seen [facility] PLATELET EST. Normal Normal [facility] BANDS 6 0 - 6 % [facility] POLYCHROMASIA Present(A) None Seen [facility] EOSINOPHILS 1 0 - 3 % [facility] Blood specimen (specimen) 04/19/2008 3:20 AM CDT 04/19/2008 3:20 AM CDT Narrative INTERFACE SYSTEM - 04/19/2008 3:58 AM CDT Differential ordered by policy. us Riky Mejía MD HEMATOLOGY ORDERABLES COM F inal Result INTERFACE SYSTEM Refer to clinic/hospital department [facility] CLIA# [id number] [address] [place] [address] * (ABNORMAL) COMPREHENSIVE METABOLIC PANEL (04/19/2008 3:20 AM CDT) GLUCOSE 138(H) 70 - 110 mg/dL [facility] CHLORIDE 94(L) 95 - 110 mEq/L [facility] ALBUMIN/GLOBULIN RATIO 0.9(L) 1.0 - 2.3 [facility] ALKALINE PHOSPHATASE 209(H) 25 - 100 U/L [facility] SODIUM 136 136 - 145 mEq/L [facility] BILIRUBIN TOTAL 1.6(H) 0.3 - 1.2 mg/dL [facility] TOTAL PROTEIN 5.6(L) 6.3 - 8.2 g/dL [facility] BUN 19(H) 7 - 17 mg/dL [facility] AST 73(H) 8 - 33 U/L [facility] CO2 37(H) 22 - 32 mmol/l [facility] ANION GAP 9 9 - 20 mEq/L [facility] ALBUMIN 2.6(L) 3.5 - 5.0 g/dL [facility] POTASSIUM 3.9 3.5 - 5.0 mEq/L [facility] GLOBULIN (CALC) 3.0 2.4 - 3.9 g/dL [facility] CREATININE 0.5(L) 0.7 - 1.2 mg/dL [facility] CALCIUM 8.6 8.4 - 10.5 mg/dL [facility] OSMOLALITY, CALCULATED 285 275 - 295 mOsm/Kg [facility] ALT 68(H) 4 - 36 IU/L [facility] Blood specimen (specimen) 04/19/2008 3:20 AM CDT 04/19/2008 3:20 AM CDT us Riky Mejía MD CHEMISTRY ORDERABLES Final Result INTERFACE SYSTEM Refer to clinic/hospital department [facility] CLIA# [id number] [address] [place] [address] * (ABNORMAL) CBC WITH DIFFERENTIAL (04/19/2008 3:20 AM CDT) WBC 13.9(H) 4.5 - 11.0 K/ul [facility] MCH 29.1 27.0 - 34.0 pg [facility] HEMATOCRIT 30.7(L) 36.0 - 46.0 % [facility] PLATELETS 390 140 - 440 K/ul [facility] RBC 3.33(L) 4.20 - 5.40 Mil/ul [facility] MCHC 31.6 30.0 - 35.0 g/dL [facility] MPV 10.2 8.9 - 12.8 Fl [facility] MCV 92.2 84.0 - 103.0 Fl [facility] HEMOGLOBIN 9.7(L) 12.0 - 16.0 g/dL [facility] RDW 16.9(H) 11.0 - 14.5 % [facility] Blood specimen (specimen) 04/19/2008 3:20 AM CDT 04/19/2008 3:20 AM CDT Riky Mejía MD HEMATOLOGY ORDERABLES Edite d Performing Organization Address [facility] Phone Number INTERFACE SYSTEM Refer to clinic/hospital department [facility] CLIA# [id number] [address] [place] [address] * POTASSIUM LEVEL (04/18/2008 11:41 PM CDT) POTASSIUM 3.9 3.5 - 5.0 mEq/L [facility] Blood specimen (specimen) 04/18/2008 11:41 PM CDT 04/18/2008 11:41 PM CDT Riky Mejía MD CHEMISTRY ORDERABLES Final Result Performing Organization Address [facility] Phone Number INTERFACE SYSTEM Refer to clinic/hospital department [facility] CLIA# [id number] [address] [place] [address] * POTASSIUM LEVEL (04/18/2008 3:49 PM CDT) POTASSIUM 4.0 3.5 - 5.0 mEq/L [facility] Blood specimen (specimen) 04/18/2008 3:49 PM CDT 04/18/2008 3:49 PM CDT Riky Mejía MD CHEMISTRY ORDERABLES Final Result Performing Organization Address City/[facility] de Phone Number INTERFACE SYSTEM Refer to clinic/hospital department [facility] CLIA# [id number] [address] [place] [address] * (ABNORMAL) POC GLUCOSE (04/18/2008 7:29 AM CDT) Pathologist [facility] GLUCOSE POC 153(H) 60 - 100 mg/dL [facility] Venous blood specimen (specimen) 04/18/2008 7:29 AM CDT 04/19/2008 6:47 AM CDT Riky Mejía MD POINT OF CARE TESTING Final Result Performing Organization Address [facility] de Phone Number INTERFACE SYSTEM Refer to clinic/hospital department [facility] CLIA# [id number] [address] [place] [address] * (ABNORMAL) CBC WITH DIFFERENTIAL (04/18/2008 3:29 AM CDT) [facility] RDW 17.0(H) 11.0 - 14.5 % [facility] BASOPHILS ABSOLUTE 0.2 0.0 - 0.2 K/ul [facility] BASOPHILS 1.0 0.0 - 1.0 % [facility] WBC 14.5(H) 4.5 - 11.0 K/ul [facility] MCH 29.0 27.0 - 34.0 pg [facility] MONOCYTE ABSOLUTE 1.1(H) 0.1 - 0.6 K/ul [facility] MONOCYTES 7.3 2.0 - 10.0 % [facility] HEMATOCRIT 30.5(L) 36.0 - 46.0 % [facility] NEUTROPHIL ABSOLUTE 12.1(H) 2.0 - 8.0 K/ul [facility] NEUTROPHILS 83.1(H) 42.2 - 75.2 % [facility] PLATELETS 332 140 - 440 K/ul [facility] RBC 3.31(L) 4.20 - 5.40 Mil/ul [facility] MCHC 31.5 30.0 - 35.0 g/dL [facility] EOSINOPHILS 1.3 0.0 - 7.0 % [facility] PERIPHERAL BLOOD SMEAR REVIEW Automated Diff [facility] EOSINOPHIL ABSOLUTE 0.2 0.0 - 0.7 K/ul [facility] MCV 92.1 84.0 - 103.0 Fl [facility] LYMPHOCYTES 7.3(L) 24.0 - 44.0 % [facility] MPV 10.3 8.9 - 12.8 Fl [facility] LYMPHOCYTE ABSOLUTE 1.1(L) 1.2 - 4.0 K/ul [facility] HEMOGLOBIN 9.6(L) 12.0 - 16.0 g/dL [facility] Blood specimen (specimen) 04/18/2008 3:29 AM CDT 04/18/2008 3:35 AM CDT us Riky Mejía MD HEMATOLOGY ORDERABLES Edite d INTERFACE SYSTEM Refer to clinic/hospital department [facility] CLIA# [id number] [address] [place] [address] * (ABNORMAL) COMPREHENSIVE METABOLIC PANEL (04/18/2008 3:29 AM CDT) AST 133(H) 8 - 33 U/L [facility] ALBUMIN/GLOBULIN RATIO 0.9(L) 1.0 - 2.3 [facility] POTASSIUM 4.1 3.5 - 5.0 mEq/L [facility] ANION GAP 6(L) 9 - 20 mEq/L [facility] ALBUMIN 2.4(L) 3.5 - 5.0 g/dL [facility] CREATININE 0.4(L) 0.7 - 1.2 mg/dL [facility] ALT 75(H) 4 - 36 IU/L [facility] CALCIUM 8.6 8.4 - 10.5 mg/dL [facility] GLUCOSE 134(H) 70 - 110 mg/dL [facility] ALKALINE PHOSPHATASE 167(H) 25 - 100 U/L [facility] CHLORIDE 96 95 - 110 mEq/L [facility] OSMOLALITY, CALCULATED 287 275 - 295 mOsm/Kg [facility] GLOBULIN (CALC) 2.8 2.4 - 3.9 g/dL [facility] TOTAL PROTEIN 5.2(L) 6.3 - 8.2 g/dL [facility] SODIUM 137 136 - 145 mEq/L [facility] BILIRUBIN TOTAL 2.1(H) 0.3 - 1.2 mg/dL [facility] CO2 39(H) 22 - 32 mmol/l [facility] BUN 20(H) 7 - 17 mg/dL [facility] Blood specimen (specimen) 04/18/2008 3:29 AM CDT 04/18/2008 3:35 AM CDT us Riky Mejía MD CHEMISTRY ORDERABLES Final Result Performing Organization Address [facility] de Phone Number INTERFACE SYSTEM Refer to clinic/hospital department [facility] CLIA# [id number] [address] [place] [address] * POTASSIUM LEVEL (04/17/2008 6:15 PM CDT) POTASSIUM 3.8 3.5 - 5.0 mEq/L [facility] Blood specimen (specimen) 04/17/2008 6:15 PM CDT 04/17/2008 6:19 PM CDT Narrative INTERFACE SYSTEM - 04/17/2008 6:44 PM CDT stat us Riky Mejía MD CHEMISTRY ORDERABLES Final Result Performing Organization Address City/[facility] de Phone Number INTERFACE SYSTEM Refer to clinic/hospital department [facility] CLIA# [id number] [address] [place] [address] * (ABNORMAL) POC GLUCOSE (04/17/2008 6:10 PM CDT) GLUCOSE POC 103(H) 60 - 100 mg/dL [facility] Venous blood specimen (specimen) 04/17/2008 6:10 PM CDT 04/18/2008 7:19 AM CDT Riky Mejía MD POINT OF CARE TESTING Final Result Performing Organization Address [facility] de Phone Number INTERFACE SYSTEM Refer to clinic/hospital department [facility] CLIA# [id number] [facility] [place] [address] * (ABNORMAL) POC GLUCOSE (04/17/2008 8:18 AM CDT) GLUCOSE POC 149(H) 60 - 100 mg/dL [facility] Venous blood specimen (specimen) 04/17/2008 8:18 AM CDT 04/18/2008 7:18 AM CDT Riky Mejía MD POINT OF CARE TESTING Final Result Performing Organization Address [facility] de Phone Number INTERFACE SYSTEM Refer to clinic/hospital department [facility] CLIA# [id number] [facility] [place] [address] * (ABNORMAL) POC ISTAT EG 7+ (04/17/2008 5:31 AM CDT) SODIUM 138 138 - 146 mEq/L [facility] PH 7.49(H) 7.35 - 7.45 Unit [facility] PO2 TEMP CORRECT 92 80 - 105 mmHg [facility] O2 SATURATION 98 95 - 98 % [facility] SPECIMEN TYPE Arterial [facility] Comment: Test Performed By [id number] Tidal volume: 450 PEEP: 08 Rate: 10 Pulse OX: 100 Hemoglobin calculated from Hematocrit result PCO2 TEMP CORRECT 50(H) 35 - 45 mmHg [facility] POTASSIUM 3.6 3.5 - 4.9 mEq/L [facility] HEMOGLOBIN POC 9.5 +/-3 g/dL 12.0 - 16.0 g/dL [facility] PH TEMP CORRECT 7.49(H) 7.35 - 7.45 Unit [facility] TCO2 (CALC) POC 40(H) 23 - 27 mmol/l [facility] HCO3 (CALC) POC 38.0(H) 22.0 - 26.0 mmol/l [facility] FIO2 30 [facility] HEMATOCRIT ABG 28(L) 38 - 51 % [facility] PO2 92 80 - 105 mmHg [facility] CALCIUM IONIZED 1.04(L) 1.12 - 1.32 mmol/l [facility] PCO2 POC 50(H) 35 - 45 mmHg [facility] BASE EXCESS 15(H) -2 - 3 mmol/l [facility] Arterial blood specimen (specimen) 04/17/2008 5:31 AM CDT 04/17/2008 6:05 AM CDT Riky Mejía MD POINT OF CARE TESTING COM F inal Result INTERFACE SYSTEM Refer to clinic/hospital department [facility]# [id number] [address] [place] [id number] * (ABNORMAL) POC ISTAT EG 7+ (04/17/2008 4:22 AM CDT) PCO2 POC 52(H) 35 - 45 mmHg [facility] BASE EXCESS 19(H) -2 - 3 mmol/l [facility] SODIUM 137(L) 138 - 146 mEq/L [facility] PH 7.51(H) 7.35 - 7.45 Unit [facility] PO2 TEMP CORRECT 448(H) 80 - 105 mmHg [facility] O2 SATURATION 100(H) 95 - 98 % [facility] SPECIMEN TYPE Arterial [facility] Comment: Test Performed By [id number] Tidal volume: 500 PEEP: 08 Rate: 12 Pulse OX: 100 Hemoglobin calculated from Hematocrit result PCO2 TEMP CORRECT 52(H) 35 - 45 mmHg [facility] POTASSIUM 3.7 3.5 - 4.9 mEq/L [facility] HEMOGLOBIN POC 10.2 +/-3 g/dL 12.0 - 16.0 g/dL [facility] PH TEMP CORRECT 7.51(H) 7.35 - 7.45 Unit [facility] TCO2 (CALC) POC 44(H) 23 - 27 mmol/l [facility] HCO3 (CALC) POC 41.9(H) 22.0 - 26.0 mmol/l [facility] FIO2 30 [facility] HEMATOCRIT ABG 30(L) 38 - 51 % [facility] PO2 448(H) 80 - 105 mmHg [facility] CALCIUM IONIZED 1.01(L) 1.12 - 1.32 mmol/l [facility] Arterial blood specimen (specimen) 04/17/2008 4:22 AM CDT 04/17/2008 5:21 AM CDT us Riky Mejía MD POINT OF CARE TESTING COM F inal Result INTERFACE SYSTEM Refer to clinic/hospital department [facility] CLIA# [id number] [address] [place] [address] * (ABNORMAL) CBC WITH DIFFERENTIAL (04/17/2008 2:07 AM CDT) BASOPHILS ABSOLUTE 0.1 0.0 - 0.2 K/ul [facility] BASOPHILS 0.8 0.0 - 1.0 % [facility] HEMOGLOBIN 9.4(L) 12.0 - 16.0 g/dL [facility] RDW 16.7(H) 11.0 - 14.5 % [facility] MONOCYTE ABSOLUTE 1.1(H) 0.1 - 0.6 K/ul [facility] MONOCYTES 7.2 2.0 - 10.0 % [facility] WBC 14.8(H) 4.5 - 11.0 K/ul [facility] MCH 29.2 27.0 - 34.0 pg [facility] NEUTROPHIL ABSOLUTE 12.7(H) 2.0 - 8.0 K/ul [facility] NEUTROPHILS 86.0(H) 42.2 - 75.2 % [facility] HEMATOCRIT 28.9(L) 36.0 - 46.0 % [facility] EOSINOPHILS 1.2 0.0 - 7.0 % [facility] PLATELETS 287 140 - 440 K/ul [facility] PERIPHERAL BLOOD SMEAR REVIEW Automated Diff [facility] EOSINOPHIL ABSOLUTE 0.2 0.0 - 0.7 K/ul [facility] RBC 3.22(L) 4.20 - 5.40 Mil/ul [facility] LYMPHOCYTES 4.8(L) 24.0 - 44.0 % [facility] MCHC 32.5 30.0 - 35.0 g/dL [facility] LYMPHOCYTE ABSOLUTE 0.7(L) 1.2 - 4.0 K/ul [facility] MCV 89.8 84.0 - 103.0 Fl [facility] MPV 10.3 8.9 - 12.8 Fl [facility] Blood specimen (specimen) 04/17/2008 2:07 AM CDT 04/17/2008 2:12 AM CDT Riky Mejía MD HEMATOLOGY ORDERABLES Final Result INTERFACE SYSTEM Refer to clinic/hospital department [facility] CLIA# [id number] [address] [place] [address] * PHOSPHORUS (04/17/2008 2:07 AM CDT) PHOSPHORUS 3.0 2.5 - 4.6 mg/dL [facility] Blood specimen (specimen) 04/17/2008 2:07 AM CDT 04/17/2008 2:12 AM CDT Riky Mejía MD CHEMISTRY ORDERABLES Final Result Performing Organization Address City/State/[facility] Co de Phone Number INTERFACE SYSTEM Refer to clinic/hospital department [facility] CLIA# [id number] [facility] [place] [address] * (ABNORMAL) COMPREHENSIVE METABOLIC PANEL (04/17/2008 2:07 AM CDT) Pathologist [facility] GLOBULIN (CALC) 2.7 2.4 - 3.9 g/dL [facility] SODIUM 141 136 - 145 mEq/L [facility] BILIRUBIN TOTAL 2.6(H) 0.3 - 1.2 mg/dL [facility] TOTAL PROTEIN 4.9(L) 6.3 - 8.2 g/dL [facility] BUN 16 7 - 17 mg/dL [facility] AST 52(H) 8 - 33 U/L [facility] CO2 36(H) 22 - 32 mmol/l [facility] ALBUMIN/GLOBULIN RATIO 0.8(L) 1.0 - 2.3 [facility] ALBUMIN 2.2(L) 3.5 - 5.0 g/dL [facility] POTASSIUM 3.6 3.5 - 5.0 mEq/L [facility] ANION GAP 7(L) 9 - 20 mEq/L [facility] CALCIUM 7.9(L) 8.4 - 10.5 mg/dL [facility] CREATININE 0.5(L) 0.7 - 1.2 mg/dL [facility] ALT 37(H) 4 - 36 IU/L [facility] GLUCOSE 131(H) 70 - 110 mg/dL [facility] CHLORIDE 102 95 - 110 mEq/L [facility] OSMOLALITY, CALCULATED 292 275 - 295 mOsm/Kg [facility] ALKALINE PHOSPHATASE 122(H) 25 - 100 U/L [facility] Blood specimen (specimen) 04/17/2008 2:07 AM CDT 04/17/2008 2:12 AM CDT Riky Mejía MD CHEMISTRY ORDERABLES Final Result Performing Organization Address [facility] Phone Number INTERFACE SYSTEM Refer to clinic/hospital department [facility] CLIA# [id number] [address] [place] [address] * (ABNORMAL) TRIGLYCERIDE (04/17/2008 2:07 AM CDT) TRIGLYCERIDE 326(H) 0 - 150 mg/dL [facility] Comment: On 11/10/2007, [facility] changed the triglyceride reference range to 0-150 mg/dl. This is the recommendation of the National Cholesterol Education Program (NCEP-ATPIII). Blood specimen (specimen) 04/17/2008 2:07 AM CDT 04/17/2008 2:12 AM CDT Riky Mejía MD CHEMISTRY ORDERABLES Final Result Performing Organization Address [facility] Phone Number INTERFACE SYSTEM Refer to clinic/hospital department [facility] CLIA# [id number] [address] [place] [address] * (ABNORMAL) POC GLUCOSE (04/16/2008 6:56 PM CDT) GLUCOSE POC 151(H) 60 - 100 mg/dL [facility] Venous blood specimen (specimen) 04/16/2008 6:56 PM CDT 04/17/2008 12:06 PM CDT Riky Mejía MD POINT OF CARE TESTING Final Result Performing Organization Address [facility] Phone Number INTERFACE SYSTEM Refer to clinic/hospital department [facility] CLIA# [id number] [address] [place] [address] * POTASSIUM LEVEL (04/16/2008 4:43 PM CDT) POTASSIUM 3.7 3.5 - 5.0 mEq/L [facility] Comment: Specimen slightly hemolyzed. Slight icteric. Blood specimen (specimen) 04/16/2008 4:43 PM CDT 04/16/2008 4:43 PM CDT Riky Mejía MD CHEMISTRY ORDERABLES Final Result INTERFACE SYSTEM Refer to clinic/hospital department [facility] CLIA# [id number] [address] [place] [address] * (ABNORMAL) POC ISTAT EG 7+ (04/16/2008 12:11 PM CDT) POTASSIUM 3.5 3.5 - 4.9 mEq/L [facility] SPECIMEN TYPE Arterial [facility] Comment: Test Performed By [id number] Pulse OX: 97 Hemoglobin calculated from Hematocrit result PCO2 TEMP CORRECT 59(H) 35 - 45 mmHg [facility] HEMOGLOBIN POC 9.9 +/-3 g/dL 12.0 - 16.0 g/dL [facility] PH TEMP CORRECT 7.39 7.35 - 7.45 Unit [facility] HCO3 (CALC) POC 35.3(H) 22.0 - 26.0 mmol/l [facility] CALCIUM IONIZED 1.10(L) 1.12 - 1.32 mmol/l [facility] TCO2 (CALC) POC 37(H) 23 - 27 mmol/l [facility] FIO2 40 [facility] PO2 93 80 - 105 mmHg [facility] HEMATOCRIT ABG 29(L) 38 - 51 % [facility] PCO2 POC 59(H) 35 - 45 mmHg [facility] SODIUM 135(L) 138 - 146 mEq/L [facility] BASE EXCESS 10(H) -2 - 3 mmol/l [facility] PH 7.39 7.35 - 7.45 Unit [facility] O2 SATURATION 97 95 - 98 % [facility] PO2 TEMP CORRECT 93 80 - 105 mmHg [facility] Arterial blood specimen (specimen) 04/16/2008 12:11 PM CDT 04/16/2008 12:15 PM CDT Riky Mejía MD POINT OF CARE TESTING COM F inal Result Performing Organization Address City/[facility] de Phone Number INTERFACE SYSTEM Refer to clinic/hospital department [facility] CLIA# [id number] [address] [place] [address] * (ABNORMAL) POC GLUCOSE (04/16/2008 7:40 AM CDT) GLUCOSE POC 166(H) 60 - 100 mg/dL [facility] Venous blood specimen (specimen) 04/16/2008 7:40 AM CDT 04/17/2008 12:06 PM CDT Riky Mejía MD POINT OF CARE TESTING Final Result Performing Organization Address [facility] Phone Number INTERFACE SYSTEM Refer to clinic/hospital department [facility] CLIA# [id number] [address] [place] [address] * (ABNORMAL) POC ISTAT EG 7+ (04/16/2008 5:16 AM CDT) CALCIUM IONIZED 1.12 1.12 - 1.32 mmol/l [facility] PCO2 POC 46(H) 35 - 45 mmHg [facility] BASE EXCESS 10(H) -2 - 3 mmol/l [facility] SODIUM 133(L) 138 - 146 mEq/L [facility] PH 7.47(H) 7.35 - 7.45 Unit [facility] PO2 TEMP CORRECT 83 80 - 105 mmHg [facility] O2 SATURATION 97 95 - 98 % [facility] SPECIMEN TYPE Arterial [facility] Comment: Test Performed By [id number] Tidal volume: 500 PEEP: 06 Rate: 12 Pulse OX: 97 Hemoglobin calculated from Hematocrit result PCO2 TEMP CORRECT 46(H) 35 - 45 mmHg [facility] POTASSIUM 3.0(L) 3.5 - 4.9 mEq/L [facility] HEMOGLOBIN POC 9.2 +/-3 g/dL 12.0 - 16.0 g/dL [facility] PH TEMP CORRECT 7.47(H) 7.35 - 7.45 Unit [facility] TCO2 (CALC) POC 35(H) 23 - 27 mmol/l [facility] HCO3 (CALC) POC 33.4(H) 22.0 - 26.0 mmol/l [facility] FIO2 30 [facility] HEMATOCRIT ABG 27(L) 38 - 51 % [facility] PO2 83 80 - 105 mmHg [facility] Arterial blood specimen (specimen) 04/16/2008 5:16 AM CDT 04/16/2008 5:51 AM CDT us Riky Mejía MD POINT OF CARE TESTING COM F inal Result INTERFACE SYSTEM Refer to clinic/hospital department [facility] CLIA# [id number] [address] [place] [address] * (ABNORMAL) POC GLUCOSE (04/16/2008 5:12 AM CDT) GLUCOSE POC 151(H) 60 - 100 mg/dL [facility] Venous blood specimen (specimen) 04/16/2008 5:12 AM CDT 04/16/2008 6:51 AM CDT us Riky Mejía MD POINT OF CARE TESTING Final Result INTERFACE SYSTEM Refer to clinic/hospital department [facility] CLIA# [id number] [address] [place] [address] * XR CHEST PA OR AP (04/16/2008 [...] CDT) LYMPHOCYTES 5.4(L) 24.0 - 44.0 % [facility] MCHC 33.3 30.0 - 35.0 g/dL [facility] LYMPHOCYTE ABSOLUTE 1.1(L) 1.2 - 4.0 K/ul [facility] MCV 88.4 84.0 - 103.0 Fl [facility] MPV 10.1 8.9 - 12.8 Fl [facility] BASOPHILS ABSOLUTE 0.1 0.0 - 0.2 K/ul [facility] BASOPHILS 0.3 0.0 - 1.0 % [facility] HEMOGLOBIN 9.4(L) 12.0 - 16.0 g/dL [facility] RDW 16.2(H) 11.0 - 14.5 % [facility] MONOCYTE ABSOLUTE 0.7(H) 0.1 - 0.6 K/ul [facility] MONOCYTES 3.3 2.0 - 10.0 % [facility] WBC 19.6(H) 4.5 - 11.0 K/ul [facility] MCH 29.5 27.0 - 34.0 pg [facility] NEUTROPHIL ABSOLUTE 17.6(H) 2.0 - 8.0 K/ul [facility] NEUTROPHILS 89.9(H) 42.2 - 75.2 % [facility] HEMATOCRIT 28.2(L) 36.0 - 46.0 % [facility] EOSINOPHILS 1.1 0.0 - 7.0 % [facility] PLATELETS 292 140 - 440 K/ul [facility] PERIPHERAL BLOOD SMEAR REVIEW Automated Diff [facility] EOSINOPHIL ABSOLUTE 0.2 0.0 - 0.7 K/ul [facility] RBC 3.19(L) 4.20 - 5.40 Mil/ul [facility] Blood specimen (specimen) 04/16/2008 3:20 AM CDT 04/16/2008 3:26 AM CDT us Riky Mejía MD HEMATOLOGY ORDERABLES Final Result INTERFACE SYSTEM Refer to clinic/hospital department [facility] CLIA# [id number] [address] [place] [address] * (ABNORMAL) COMPREHENSIVE METABOLIC PANEL (04/16/2008 3:20 AM CDT) AST 58(H) 8 - 33 U/L [facility] CO2 32 22 - 32 mmol/l [facility] ALBUMIN/GLOBULIN RATIO 0.9(L) 1.0 - 2.3 [facility] ALBUMIN 2.2(L) 3.5 - 5.0 g/dL [facility] POTASSIUM 2.9(AA) 3.5 - 5.0 mEq/L [facility] Comment: Potentially critical/toxic K called by GS to JOCELYNE DILLARD, with verbal read back, at 04/16/08 04:21. ANION GAP 9 9 - 20 mEq/L [facility] CALCIUM 8.2(L) 8.4 - 10.5 mg/dL [facility] CREATININE 0.6(L) 0.7 - 1.2 mg/dL [facility] ALT 37(H) 4 - 36 IU/L [facility] GLUCOSE 148(H) 70 - 110 mg/dL [facility] CHLORIDE 98 95 - 110 mEq/L [facility] OSMOLALITY, CALCULATED 283 275 - 295 mOsm/Kg [facility] ALKALINE PHOSPHATASE 105(H) 25 - 100 U/L [facility] GLOBULIN (CALC) 2.5 2.4 - 3.9 g/dL [facility] SODIUM 136 136 - 145 mEq/L [facility] BILIRUBIN TOTAL 4.4(H) 0.3 - 1.2 mg/dL [facility] TOTAL PROTEIN 4.7(L) 6.3 - 8.2 g/dL [facility] BUN 17 7 - 17 mg/dL [facility] Blood specimen (specimen) 04/16/2008 3:20 AM CDT 04/16/2008 3:26 AM CDT us Riky Mejía MD CHEMISTRY ORDERABLES Final Result Performing Organization Address [facility] Phone Number INTERFACE SYSTEM Refer to clinic/hospital department [facility] CLIA# [id number] [address] [place] [address] * (ABNORMAL) POC GLUCOSE (04/15/2008 6:36 PM CDT) GLUCOSE POC 110(H) 60 - 100 mg/dL [facility] Venous blood specimen (specimen) 04/15/2008 6:36 PM CDT 04/16/2008 6:51 AM CDT us Riky Mejía MD POINT OF CARE TESTING Final Result Performing Organization Address [facility] Phone Number INTERFACE SYSTEM Refer to clinic/hospital department [facility] CLIA# [id number] [address] [place] [address] * (ABNORMAL) HEMOGLOBIN AND HEMATOCRIT (04/15/2008 4:00 PM CDT) HEMOGLOBIN 7.8(L) 12.0 - 16.0 g/dL [facility] HEMATOCRIT 24.1(L) 36.0 - 46.0 % [facility] Blood specimen (specimen) 04/15/2008 4:00 PM CDT 04/15/2008 4:00 PM CDT us Riky Mejía MD HEMATOLOGY ORDERABLES Final Result Performing Organization Address [facility] Phone Number INTERFACE SYSTEM Refer to clinic/hospital department [facility] CLIA# [id number] [address] [place] [address] * (ABNORMAL) VANCOMYCIN LEVEL TROUGH (04/15/2008 9:53 AM CDT) VANCOMYCIN, TROUGH 18.3(H) 5.0 - 15.0 mcg/mL [facility] Blood specimen (specimen) 04/15/2008 9:53 AM CDT 04/15/2008 9:53 AM CDT Riky Mejía MD CHEMISTRY ORDERABLES Final Result Performing Organization Address [facility] Phone Number INTERFACE SYSTEM Refer to clinic/hospital department [facility] CLIA# [id number] [address] [place] [address] * (ABNORMAL) TRIGLYCERIDE (04/15/2008 9:53 AM CDT) TRIGLYCERIDE 435(H) 0 - 150 mg/dL [facility] Comment: On 11/10/2007, [facility] changed the triglyceride reference range to 0-150 mg/dl. This is the recommendation of the National Cholesterol Education Program (NCEP-ATPIII). Blood specimen (specimen) 04/15/2008 9:53 AM CDT 04/15/2008 9:53 AM CDT Riky Mejía MD CHEMISTRY ORDERABLES Final Result Performing Organization Address [facility] Phone Number INTERFACE SYSTEM Refer to clinic/hospital department [facility] CLIA# [id number] [address] [place] [address] * PROTIME-INR (04/15/2008 9:53 AM CDT) PROTIME [...] Goal INR 3.0; range 2.5 - 3.5 POST-MO Goal INR 2.5; range 2.0 - 3.0 or Goal 3.0; range 2.5 - 3.5 Atrial Fibrillation Goal INR 2.5; range 2.0 - 3.0 Ischemic Stroke Goal INR 2.5; range 2.0 - 3.0 For additional information see Guidelines for Anticoagulation available from the pharmacy [facility] [phone] Blood specimen (specimen) 04/15/2008 9:53 AM CDT 04/15/2008 9:53 AM CDT Riky Mejía MD HEMATOLOGY ORDERABLES Final Result Performing Organization Address [facility] Phone Number INTERFACE SYSTEM Refer to clinic/hospital department [facility] CLIA# [id number] [address] [place] [address] * (ABNORMAL) TRANSFERRIN (04/15/2008 9:53 AM CDT) TRANSFERRIN 59.0(L) 204.0 - 376.0 mg/dL [facility] Comment: Specimen slightly hemolyzed Blood specimen (specimen) 04/15/2008 9:53 AM CDT 04/15/2008 9:53 AM CDT Riky Mejía MD CHEMISTRY ORDERABLES Final Result Performing Organization Address [facility] Phone Number INTERFACE SYSTEM Refer to clinic/hospital [facility] CLIA# [id number] [address] [place] [address] * (ABNORMAL) PREALBUMIN (04/15/2008 9:53 AM CDT) PREALBUMIN <5.0(L) 14.0 - 32.0 mg/dL [facility] Comment: Test Repeated; Results confirmed Blood specimen (specimen) 04/15/2008 9:53 AM CDT 04/15/2008 9:53 AM CDT Riky Mejía MD CHEMISTRY ORDERABLES Final Result Performing Organization Address [facility] Phone Number INTERFACE SYSTEM Refer to clinic/hospital [facility] CLIA# [id number] [address] [place] [address] * PHOSPHORUS (04/15/2008 9:53 AM CDT) PHOSPHORUS 3.9 2.5 - 4.6 mg/dL [facility] Blood specimen (specimen) 04/15/2008 9:53 AM CDT 04/15/2008 9:53 AM CDT us Riky Mejía MD CHEMISTRY ORDERABLES Edited Performing Organization Address [facility] Phone Number INTERFACE SYSTEM Refer to clinic/hospital department [facility] CLIA# [id number] [address] [place] [address] * (ABNORMAL) MAGNESIUM LEVEL (04/15/2008 9:53 AM CDT) MAGNESIUM 1.3(L) 1.7 - 2.4 mg/dL [facility] Blood specimen (specimen) 04/15/2008 9:53 AM CDT 04/15/2008 9:53 AM CDT us Riky Mejía MD CHEMISTRY ORDERABLES Edited Performing Organization Address [facility] de Phone Number INTERFACE SYSTEM Refer to clinic/hospital department [facility] CLIA# [id number] [address] [place] [address] * (ABNORMAL) POC ISTAT EG 7+ (04/15/2008 4:13 AM CDT) PH 7.49(H) 7.35 - 7.45 Unit [facility] PO2 TEMP CORRECT 68(L) 80 - 105 mmHg [facility] O2 SATURATION 94(L) 95 - 98 % [facility] SPECIMEN TYPE Arterial [facility] Comment: Test Performed By [id number] Tidal volume: 500 PEEP: 06 Rate: 12 Pulse OX: 98 Hemoglobin calculated from Hematocrit result PCO2 TEMP CORRECT 48(H) 35 - 45 mmHg [facility] POTASSIUM 3.4(L) 3.5 - 4.9 mEq/L [facility] HEMOGLOBIN POC 9.2 +/-3 g/dL 12.0 - 16.0 g/dL [facility] PH TEMP CORRECT 7.49(H) 7.35 - 7.45 Unit [facility] TCO2 (CALC) POC 38(H) 23 - 27 mmol/l [facility] HCO3 (CALC) POC 36.7(H) 22.0 - 26.0 mmol/l [facility] FIO2 30 [facility] HEMATOCRIT ABG 27(L) 38 - 51 % [facility] PO2 68(L) 80 - 105 mmHg [facility] CALCIUM IONIZED 1.06(L) 1.12 - 1.32 mmol/l [facility] PCO2 POC 48(H) 35 - 45 mmHg [facility] BASE EXCESS 13(H) -2 - 3 mmol/l [facility] SODIUM 133(L) 138 - 146 mEq/L [facility] Arterial blood specimen (specimen) 04/15/2008 4:13 AM CDT 04/15/2008 4:27 AM CDT Riky Mejía MD POINT OF CARE TESTING COM F inal Result INTERFACE SYSTEM Refer to clinic/hospital department [facility]# [id number] [address] [place] [id number] * XR CHEST PA OR AP (04/15/2008 [...] By: April Chaparro M.D. Date Signed: 04/15/08 [facility] Procedure Note April Chaparro MD - 04/15/2008 Exam: Chest - Portable Date/Time of Exam: Apr 15, 2008 4:08:09 AM History: Postoperative. Findings: Comparison study 04/14/08. Life support lines stable in position.Decreased lung volumes with bibasilar plate atelectasis. Cardiac silhouette stable and within normallimits. Impression: No significant change. - Dictated By: April Chaparro M.D. Electronically Signed By: April Chaparro M.D. Date Signed: 04/15/08 [facility] Heriberto Carrera MD DIAGNOSTIC IMAGING ORDERABLES Fi nal Result * (ABNORMAL) COMPREHENSIVE METABOLIC PANEL (04/15/2008 3:17 AM CDT) CALCIUM 7.9(L) 8.4 - 10.5 mg/dL [facility] CREATININE 0.6(L) 0.7 - 1.2 mg/dL [facility] ALT 40(H) 4 - 36 IU/L [facility] GLUCOSE 106 70 - 110 mg/dL [facility] CHLORIDE 95 95 - 110 mEq/L [facility] OSMOLALITY, CALCULATED 285 275 - 295 mOsm/Kg [facility] ALKALINE PHOSPHATASE 102(H) 25 - 100 U/L [facility] GLOBULIN (CALC) 2.5 2.4 - 3.9 g/dL [facility] SODIUM 137 136 - 145 mEq/L [facility] BILIRUBIN TOTAL 4.3(H) 0.3 - 1.2 mg/dL [facility] Comment: slightly icteric TOTAL PROTEIN 4.5(L) 6.3 - 8.2 g/dL [facility] BUN 20(H) 7 - 17 mg/dL [facility] AST 73(H) 8 - 33 U/L [facility] CO2 36(H) 22 - 32 mmol/l [facility] ALBUMIN/GLOBULIN RATIO 0.8(L) 1.0 - 2.3 [facility] ALBUMIN 2.0(L) 3.5 - 5.0 g/dL [facility] POTASSIUM 3.7 3.5 - 5.0 mEq/L [facility] ANION GAP 10 9 - 20 mEq/L [facility] Blood specimen (specimen) 04/15/2008 3:17 AM CDT 04/15/2008 3:36 AM CDT us Petr Carrillo MD CHEMISTRY ORDERABLES Final Re sult INTERFACE SYSTEM Refer to clinic/hospital department [facility] CLIA# [id number] [address] [place] [id number] * (ABNORMAL) CBC WITH DIFFERENTIAL (04/15/2008 3:17 AM CDT) NEUTROPHIL ABSOLUTE 15.2(H) 2.0 - 8.0 K/ul [facility] HEMATOCRIT 26.7(L) 36.0 - 46.0 % [facility] PLATELETS 428 140 - 440 K/ul [facility] EOSINOPHIL ABSOLUTE 0.2 0.0 - 0.7 K/ul [facility] EOSINOPHILS 0.8 0.0 - 7.0 % [facility] PERIPHERAL BLOOD SMEAR REVIEW Automated Diff [facility] RBC 3.02(L) 4.20 - 5.40 Mil/ul [facility] MCHC 32.2 30.0 - 35.0 g/dL [facility] LYMPHOCYTE ABSOLUTE 1.3 1.2 - 4.0 K/ul [facility] LYMPHOCYTES 7.4(L) 24.0 - 44.0 % [facility] MCV 88.4 84.0 - 103.0 Fl [facility] BASOPHILS 0.5 0.0 - 1.0 % [facility] MPV 10.1 8.9 - 12.8 Fl [facility] BASOPHILS ABSOLUTE 0.1 0.0 - 0.2 K/ul [facility] HEMOGLOBIN 8.6(L) 12.0 - 16.0 g/dL [facility] MONOCYTES 5.6 2.0 - 10.0 % [facility] RDW 16.7(H) 11.0 - 14.5 % [facility] MONOCYTE ABSOLUTE 1.0(H) 0.1 - 0.6 K/ul [facility] WBC 17.7(H) 4.5 - 11.0 K/ul [facility] NEUTROPHILS 85.7(H) 42.2 - 75.2 % [facility] MCH 28.5 27.0 - 34.0 pg [facility] Blood specimen (specimen) 04/15/2008 3:17 AM CDT 04/15/2008 3:40 AM CDT us Petr Carrillo MD HEMATOLOGY ORDERABLES Final R esult INTERFACE SYSTEM Refer to clinic/hospital department [facility]# [id number] [address] [place] [phone] * XR CHEST PA OR AP (04/14/2008 [...] Ari Ly Jr., M.D. Date Signed: 04/14/08 [facility] Procedure Note Ari Ly Jr. - 04/14/2008 [...] Ari Ly Jr., M.D. Date Signed: 04/14/08 [facility] us Riky Mejía MD DIAGNOSTIC IMAGING ORDERABL ES Final Result * (ABNORMAL) POC ISTAT EG 7+ (04/14/2008 3:23 AM CDT) SODIUM 134(L) 138 - 146 mEq/L [facility] PH 7.60(AA) 7.35 - 7.45 Unit [facility] PO2 TEMP CORRECT 92 80 - 105 mmHg [facility] O2 SATURATION 98 95 - 98 % [facility] SPECIMEN TYPE Arterial [facility] Comment: Test Performed By [id number] Critical result performed at the point of care. Pulse OX: 98 Hemoglobin calculated from Hematocrit result PCO2 TEMP CORRECT 41 35 - 45 mmHg [facility] POTASSIUM 3.9 3.5 - 4.9 mEq/L [facility] HEMOGLOBIN POC 10.9 +/-3 g/dL 12.0 - 16.0 g/dL [facility] PH TEMP CORRECT 7.60(AA) 7.35 - 7.45 Unit [facility] TCO2 (CALC) POC 41(H) 23 - 27 mmol/l [facility] HCO3 (CALC) POC 39.9(H) 22.0 - 26.0 mmol/l [facility] FIO2 45 [facility] HEMATOCRIT ABG 32(L) 38 - 51 % [facility] PO2 92 80 - 105 mmHg [facility] CALCIUM IONIZED 1.03(L) 1.12 - 1.32 mmol/l [facility] PCO2 POC 41 35 - 45 mmHg [facility] BASE EXCESS 18(H) -2 - 3 mmol/l [facility] Arterial blood specimen (specimen) 04/14/2008 3:23 AM CDT 04/14/2008 5:44 AM CDT us Riky Mejía MD POINT OF CARE TESTING COM F inal Result INTERFACE SYSTEM Refer to clinic/hospital department [facility] CLIA# [id number] [address] [place] [address] * (ABNORMAL) DIFFERENTIAL, MANUAL (04/14/2008 1:37 AM CDT) NEUTROPHILS, SEG 57 36 - 66 % [facility] METAMYELOCYTE 1 0 - 1 % [facility] POIKILOCYTES 1+(A) None Seen [facility] MONOCYTE 5 4 - 10 % [facility] RBC MORPHOLOGY Abnormal(A ) Normal [facility] BANDS 27(H) 0 - 6 % [facility] POLYCHROMASIA Present(A) None Seen [facility] MYELOCYTES 1 <=1 % [facility] EOSINOPHILS 1 0 - 3 % [facility] ANISOCYTOSIS 1+(A) None Seen [facility] LYMPHOCYTES 8(L) 24 - 44 % [facility] PLATELET EST. Normal Normal [facility] Comment: OCC PLATELET CLUMPS NOTED ON REVIEW OF SMEAR. Blood specimen (specimen) 04/14/2008 1:37 AM CDT 04/14/2008 1:40 AM CDT Narrative INTERFACE SYSTEM - 04/14/2008 2:01 AM CDT Differential ordered by policy. Riky Mejía MD HEMATOLOGY ORDERABLES COM F inal Result INTERFACE SYSTEM Refer to clinic/hospital department [facility] CLIA# [id number] [address] [place] [address] * (ABNORMAL) BASIC METABOLIC PANEL (04/14/2008 1:37 AM CDT) CALCIUM 8.1(L) 8.4 - 10.5 mg/dL [facility] GLUCOSE 108 70 - 110 mg/dL [facility] CHLORIDE 95 95 - 110 mEq/L [facility] ANION GAP 8(L) 9 - 20 mEq/L [facility] SODIUM 137 136 - 145 mEq/L [facility] BUN 26(H) 7 - 17 mg/dL [facility] CO2 38(H) 22 - 32 mmol/l [facility] POTASSIUM 4.1 3.5 - 5.0 mEq/L [facility] OSMOLALITY, CALCULATED 288 275 - 295 mOsm/Kg [facility] CREATININE 0.8 0.7 - 1.2 mg/dL [facility] Blood specimen (specimen) 04/14/2008 1:37 AM CDT 04/14/2008 1:40 AM CDT us Riky Mejía MD CHEMISTRY ORDERABLES Final Result Performing Organization Address [facility] Phone Number INTERFACE SYSTEM Refer to clinic/hospital department [facility] CLIA# [id number] [address] [place] [phone] * (ABNORMAL) CBC WITH DIFFERENTIAL (04/14/2008 1:37 AM CDT) HEMATOCRIT 33.4(L) 36.0 - 46.0 % [facility] PLATELETS 429 140 - 440 K/ul [facility] RBC 3.77(L) 4.20 - 5.40 Mil/ul [facility] MCHC 33.2 30.0 - 35.0 g/dL [facility] MPV 10.1 8.9 - 12.8 Fl [facility] MCV 88.6 84.0 - 103.0 Fl [facility] HEMOGLOBIN 11.1(L) 12.0 - 16.0 g/dL [facility] RDW 16.4(H) 11.0 - 14.5 % [facility] WBC 16.6(H) 4.5 - 11.0 K/ul [facility] MCH 29.4 27.0 - 34.0 pg [facility] Blood specimen (specimen) 04/14/2008 1:37 AM CDT 04/14/2008 1:40 AM CDT us Riky Mejía MD HEMATOLOGY ORDERABLES Edite d Performing Organization Address [facility] de Phone Number INTERFACE SYSTEM Refer to clinic/hospital department [facility] CLIA# [id number] [address] [place] [phone] * LACTIC ACID (04/13/2008 9:12 PM CDT) LACTIC ACID 1.4 0.5 - 2.2 mEq/L [facility] Blood specimen (specimen) 04/13/2008 9:12 PM CDT 04/13/2008 9:18 PM CDT us Riky Mejía MD CHEMISTRY ORDERABLES Final Result INTERFACE SYSTEM Refer to clinic/hospital department [facility] CLIA# [id number] [facility] [place] [address] * (ABNORMAL) POC ISTAT EG 7+ (04/13/2008 8:41 PM CDT) Pathologist [facility] POTASSIUM 3.8 3.5 - 4.9 mEq/L [facility] PH TEMP CORRECT 7.51(H) 7.35 - 7.45 Unit [facility] HCO3 (CALC) POC 43.9(H) 22.0 - 26.0 mmol/l [facility] TCO2 (CALC) POC 46(H) 23 - 27 mmol/l [facility] FIO2 55 [facility] PO2 129(H) 80 - 105 mmHg [facility] CALCIUM IONIZED 1.05(L) 1.12 - 1.32 mmol/l [facility] HEMATOCRIT ABG 36(L) 38 - 51 % [facility] PCO2 POC 56(H) 35 - 45 mmHg [facility] SODIUM 135(L) 138 - 146 mEq/L [facility] BASE EXCESS 21(H) -2 - 3 mmol/l [facility] PH 7.51(H) 7.35 - 7.45 Unit [facility] O2 SATURATION 99(H) 95 - 98 % [facility] PO2 TEMP CORRECT 129(H) 80 - 105 mmHg [facility] SPECIMEN TYPE Arterial [facility] Comment: Test Performed By [id number] PEEP: 10 Rate: 12 Pulse OX: 100 Hemoglobin calculated from Hematocrit result PCO2 TEMP CORRECT 56(H) 35 - 45 mmHg [facility] HEMOGLOBIN POC 12.2 +/-3 g/dL 12.0 - 16.0 g/dL [facility] Arterial blood specimen (specimen) 04/13/2008 8:41 PM CDT 04/13/2008 8:44 PM CDT Riky Mejía MD POINT OF CARE TESTING COM F inal Result Performing Organization Address [facility] de Phone Number INTERFACE SYSTEM Refer to clinic/hospital department [facility] CLIA# [id number] [address] [place] [address] * (ABNORMAL) POC GLUCOSE (04/13/2008 8:33 PM CDT) GLUCOSE POC 115(H) 60 - 100 mg/dL [facility] Venous blood specimen (specimen) 04/13/2008 8:33 PM CDT 04/14/2008 5:56 AM CDT Riky Mejía MD POINT OF CARE TESTING Final Result Performing Organization Address [facility] de Phone Number INTERFACE SYSTEM Refer to clinic/hospital department [facility] CLIA# [id number] [address] [place] [address] * (ABNORMAL) BASIC METABOLIC PANEL (04/13/2008 7:58 PM CDT) GLUCOSE 118(H) 70 - 110 mg/dL [facility] CHLORIDE 94(L) 95 - 110 mEq/L [facility] ANION GAP <9 9 - 20 mEq/L [facility] SODIUM 139 136 - 145 mEq/L [facility] BUN 17 7 - 17 mg/dL [facility] CO2 >40(H) 22 - 32 mmol/l [facility] POTASSIUM 3.9 3.5 - 5.0 mEq/L [facility] OSMOLALITY, CALCULATED 288 275 - 295 mOsm/Kg [facility] CREATININE 0.5(L) 0.7 - 1.2 mg/dL [facility] CALCIUM 8.4 8.4 - 10.5 mg/dL [facility] Blood specimen (specimen) 04/13/2008 7:58 PM CDT 04/13/2008 8:01 PM CDT Riky Mejía MD CHEMISTRY ORDERABLES Final Result INTERFACE SYSTEM Refer to clinic/hospital department [facility] CLIA# [id number] [address] [place] [address] * (ABNORMAL) CBC WITH DIFFERENTIAL (04/13/2008 7:58 PM CDT) MCV 91.0 84.0 - 103.0 Fl [facility] MPV 10.3 8.9 - 12.8 Fl [facility] BASOPHILS ABSOLUTE 0.1 0.0 - 0.2 K/ul [facility] BASOPHILS 0.4 0.0 - 1.0 % [facility] HEMOGLOBIN 11.6(L) 12.0 - 16.0 g/dL [facility] RDW 16.6(H) 11.0 - 14.5 % [facility] MONOCYTE ABSOLUTE 0.7(H) 0.1 - 0.6 K/ul [facility] MONOCYTES 4.2 2.0 - 10.0 % [facility] WBC 16.1(H) 4.5 - 11.0 K/ul [facility] MCH 29.7 27.0 - 34.0 pg [facility] NEUTROPHIL ABSOLUTE 14.1(H) 2.0 - 8.0 K/ul [facility] NEUTROPHILS 87.4(H) 42.2 - 75.2 % [facility] HEMATOCRIT 35.6(L) 36.0 - 46.0 % [facility] EOSINOPHILS 0.9 0.0 - 7.0 % [facility] PLATELETS 430 140 - 440 K/ul [facility] EOSINOPHIL ABSOLUTE 0.1 0.0 - 0.7 K/ul [facility] RBC 3.91(L) 4.20 - 5.40 Mil/ul [facility] LYMPHOCYTES 7.1(L) 24.0 - 44.0 % [facility] MCHC 32.6 30.0 - 35.0 g/dL [facility] LYMPHOCYTE ABSOLUTE 1.1(L) 1.2 - 4.0 K/ul [facility] Blood specimen (specimen) 04/13/2008 7:58 PM CDT 04/13/2008 8:01 PM CDT us Riky eMjía MD HEMATOLOGY ORDERABLES Final Result Performing Organization Address City/State/[facility] Phone Number INTERFACE SYSTEM Refer to clinic/hospital department [facility]# [id number] [address] [place] [phone] * XR CHEST PA OR AP (04/13/2008 [...] radiopaque tubes and lines that overlie the [id number]. There is vascular congestion, and there is [...] radiopaque tubes and lines that overlie the [id number]. There is vascular congestion,and there is likely a right lower lobe infiltrate that obscures the right diaphragm. - Dictated By: Riky Jarvis M.D. Electronically Signed By: Riky Jarvis M.D. Date Signed: 04/13/08 Riky Mejía MD DIAGNOSTIC IMAGING ORDERABL ES Final Result * (ABNORMAL) POC ISTAT EG 7+ (04/13/2008 6:02 PM CDT) TEMPERATURE 37.9 DegC [facility] PO2 138(H) 80 - 105 mmHg [facility] CALCIUM IONIZED 1.06(L) 1.12 - 1.32 mmol/l [facility] HEMATOCRIT ABG 29(L) 38 - 51 % [facility] SPECIMEN TYPE Arterial [facility] Comment: Test Performed By [id number] Critical result performed at the point of care. Sample not collected by [facility] Hemoglobin calculated from Hematocrit result PCO2 POC 39 35 - 45 mmHg [facility] SODIUM 134(L) 138 - 146 mEq/L [facility] BASE EXCESS 27(H) -2 - 3 mmol/l [facility] PH 7.69(AA) 7.35 - 7.45 Unit [facility] O2 SATURATION 100(H) 95 - 98 % [facility] PO2 TEMP CORRECT 144(H) 80 - 105 mmHg [facility] FIO2 100 [facility] HEMOGLOBIN POC 9.9 +/-3 g/dL 12.0 - 16.0 g/dL [facility] PCO2 TEMP CORRECT 41 35 - 45 mmHg [facility] POTASSIUM 3.3(L) 3.5 - 4.9 mEq/L [facility] PH TEMP CORRECT 7.67(AA) 7.35 - 7.45 Unit [facility] HCO3 (CALC) POC 47.0(H) 22.0 - 26.0 mmol/l [facility] TCO2 (CALC) POC 48(H) 23 - 27 mmol/l [facility] Arterial blood specimen (specimen) 04/13/2008 6:02 PM CDT 04/13/2008 6:19 PM CDT Riky Mejía MD POINT OF CARE TESTING COM F inal Result Performing Organization Address [facility] de Phone Number INTERFACE SYSTEM Refer to clinic/hospital department [facility] CLIA# [id number] [address] [place] [address] * LACTIC ACID (04/13/2008 5:36 PM CDT) [facility] LACTIC ACID 1.5 0.5 - 2.2 mEq/L [facility] Blood specimen (specimen) 04/13/2008 5:36 PM CDT 04/13/2008 5:36 PM CDT Riky Mejía MD CHEMISTRY ORDERABLES Final Result Performing Organization Address [facility] Phone Number INTERFACE SYSTEM Refer to clinic/hospital department [facility] CLIA# [id number] [facility] [place] [address] * TYPE AND CROSSMATCH (04/13/2008 5:34 PM CDT) [facility] BLOOD BANK PRODUCT INTERFACE SYSTEM Blood specimen (specimen) 04/13/2008 5:34 PM CDT 04/13/2008 5:34 PM CDT Riky Mejía MD BLOOD BANK ORDERABLES Final Result Performing Organization Address [facility] de Phone Number INTERFACE SYSTEM Refer to clinic/hospital department * ANTIBODY SCREEN (04/13/2008 5:34 PM CDT) Pathologist [facility] ANTIBODY SCREEN Negative [facility] Blood specimen (specimen) 04/13/2008 5:34 PM CDT 04/13/2008 5:34 PM CDT Riky Mejía MD BLOOD BANK ORDERABLES Edite d Performing Organization Address [facility] de Phone Number INTERFACE SYSTEM Refer to clinic/hospital department [facility] CLIA# [id number] [address] [place] [address] * ABORH TYPING (04/13/2008 5:34 PM CDT) Pathologist [facility] ABO/RH TYPE O Positive [facility] Blood specimen (specimen) 04/13/2008 5:34 PM CDT 04/13/2008 5:34 PM CDT us Riky Mejía MD BLOOD BANK ORDERABLES Final Result Performing Organization Address [facility] Phone Number INTERFACE SYSTEM Refer to clinic/hospital department [facility] CLIA# [id number] [address] [place] [phone] * (ABNORMAL) BASIC METABOLIC PANEL (04/13/2008 5:29 PM CDT) CREATININE 0.6(L) 0.7 - 1.2 mg/dL [facility] CALCIUM 8.4 8.4 - 10.5 mg/dL [facility] GLUCOSE 118(H) 70 - 110 mg/dL [facility] CHLORIDE 91(L) 95 - 110 mEq/L [facility] SODIUM 141 136 - 145 mEq/L [facility] ANION GAP <14 9 - 20 mEq/L [facility] BUN 16 7 - 17 mg/dL [facility] CO2 >40(H) 22 - 32 mmol/l [facility] OSMOLALITY, CALCULATED 291 275 - 295 mOsm/Kg [facility] POTASSIUM 3.7 3.5 - 5.0 mEq/L [facility] Blood specimen (specimen) 04/13/2008 5:29 PM CDT 04/13/2008 5:30 PM CDT Narrative INTERFACE SYSTEM - 04/13/2008 6:20 PM CDT OR 9 us Riky Mejía MD CHEMISTRY ORDERABLES Final Result INTERFACE SYSTEM Refer to clinic/hospital department [facility] CLIA# [id number] [address] [place] [address] * PT AND APTT (04/13/2008 5:29 PM CDT) INR 1.1 [facility] Comment: Expected Values for INR: DVT/PE Goal INR 2.5; range 2.0 - 3.0 Valve Replacement Tissue Goal INR 2.5; range 2.0 - 3.0 Mechanical Goal INR 3.0; range 2.5 - 3.5 POST-MO Goal INR 2.5; range 2.0 - 3.0 or Goal 3.0; range 2.5 - 3.5 Atrial Fibrillation Goal INR 2.5; range 2.0 - 3.0 Ischemic Stroke Goal INR 2.5; range 2.0 - 3.0 For additional information see Guidelines for Anticoagulation available from the pharmacy [facility] [phone] PTT 33.1 22.5 - 36.5 Secs [facility] Comment: Therapeutic Range: Hi-level PE/DVT heparin protocol 80.1 -95.0 sec Lo-level PE/DVT heparin protocol 67.1 - 80.0 sec Cardiac Heparin Protocol 67.1 - 85.0 sec Neuro Heparin Protocol 67.1 - 80.0 sec As of 09/25/2007 note change in APTT Normal Range. PROTIME 15.3 12.8 - 15.8 Secs [facility] Comment:As of 2007 not e change in normal range. Blood specimen (specimen) 04/13/2008 5:29 PM CDT 04/13/2008 5:30 PM CDT Narrative INTERFACE SYSTEM - 04/13/2008 5:48 PM CDT OR 9 us Riky Mejía MD HEMATOLOGY ORDERABLES Edite d INTERFACE SYSTEM Refer to clinic/hospital department [facility] CLIA# [id number] [facility] [place] [address] * (ABNORMAL) CBC WITH DIFFERENTIAL (04/13/2008 5:29 PM CDT) MCV 90.1 84.0 - 103.0 Fl [facility] BASOPHILS 0.3 0.0 - 1.0 % [facility] MPV 10.2 8.9 - 12.8 Fl [facility] BASOPHILS ABSOLUTE 0.0 0.0 - 0.2 K/ul [facility] HEMOGLOBIN 9.4(L) 12.0 - 16.0 g/dL [facility] MONOCYTES 4.3 2.0 - 10.0 % [facility] RDW 17.1(H) 11.0 - 14.5 % [facility] MONOCYTE ABSOLUTE 0.5 0.1 - 0.6 K/ul [facility] WBC 11.8(H) 4.5 - 11.0 K/ul [facility] NEUTROPHILS 81.9(H) 42.2 - 75.2 % [facility] MCH 29.0 27.0 - 34.0 pg [facility] NEUTROPHIL ABSOLUTE 9.7(H) 2.0 - 8.0 K/ul [facility] HEMATOCRIT 29.2(L) 36.0 - 46.0 % [facility] PLATELETS 414 140 - 440 K/ul [facility] EOSINOPHIL ABSOLUTE 0.2 0.0 - 0.7 K/ul [facility] EOSINOPHILS 1.4 0.0 - 7.0 % [facility] RBC 3.24(L) 4.20 - 5.40 Mil/ul [facility] MCHC 32.2 30.0 - 35.0 g/dL [facility] LYMPHOCYTE ABSOLUTE 1.4 1.2 - 4.0 K/ul [facility] LYMPHOCYTES 12.1(L) 24.0 - 44.0 % [facility] Blood specimen (specimen) 04/13/2008 5:29 PM CDT 04/13/2008 5:29 PM CDT Narrative INTERFACE SYSTEM - 04/13/2008 5:35 PM CDT OR 9 us Riky Mejía MD HEMATOLOGY ORDERABLES Final Result INTERFACE SYSTEM Refer to clinic/hospital department [facility] CLIA# [id number] [place] [address] * (ABNORMAL) POC ISTAT EG 7+ (04/13/2008 5:26 PM CDT) PH 7.68(AA) 7.35 - 7.45 Unit [facility] O2 SATURATION 100(H) 95 - 98 % [facility] PO2 TEMP CORRECT 174(H) 80 - 105 mmHg [facility] FIO2 100 [facility] HEMOGLOBIN POC 9.5 +/-3 g/dL 12.0 - 16.0 g/dL [facility] PCO2 TEMP CORRECT 47(H) 35 - 45 mmHg [facility] POTASSIUM 3.5 3.5 - 4.9 mEq/L [facility] PH TEMP CORRECT 7.67(AA) 7.35 - 7.45 Unit [facility] HCO3 (CALC) POC 53.2(H) 22.0 - 26.0 mmol/l [facility] TCO2 (CALC) POC >50(H) 23 - 27 mmol/l [facility] TEMPERATURE 37.8 DegC [facility] PO2 170(H) 80 - 105 mmHg [facility] CALCIUM IONIZED 0.95(L) 1.12 - 1.32 mmol/l [facility] HEMATOCRIT ABG 28(L) 38 - 51 % [facility] SPECIMEN TYPE Arterial [facility] Comment: Test Performed By [id number] Critical result performed at the point of care. Sample not collected by [facility] Hemoglobin calculated from Hematocrit result PCO2 POC 45 35 - 45 mmHg [facility] SODIUM 135(L) 138 - 146 mEq/L [facility] BASE EXCESS >30(H) -2 - 3 mmol/l [facility] Arterial blood specimen (specimen) 04/13/2008 5:26 PM CDT 04/13/2008 5:34 PM CDT Riky Mejía MD POINT OF CARE TESTING COM F inal Result Performing Organization Address City/[facility] Co de Phone Number INTERFACE SYSTEM Refer to clinic/hospital department [facility] CLIA# [id number] [address] [place] [id number] * MRSA CULTURE (04/13/2008 4:30 PM CDT) FINAL REPORT Culture screen for MRSA negative INTERFACE SYSTEM 04/13/2008 4:30 PM CDT 04/13/2008 6:57 PM CDT Riky Mejía MD MICROBIOLOGY - GENERAL ORDE RABLES Final Result Performing Organization Address [facility] de Phone Number INTERFACE SYSTEM Refer to clinic/hospital department documented in this encounter Visit Diagnoses Not on filedocumented in this encounter Additional Health Concerns Infection Onset Date Last Indicated Resolved Time MRSA Comment:Kapil 10/26/15 10/27/2015 10/27/2015 documented as of this encounter Care Teams Database Programmer Relationship Specialty Start Date End Date Jose Bowers MD [address] [place] [id number] PCP - General 12/31/05 documented as of this encounter
--- OUTSIDE RECORDS SUMMARY | 2025-03-09 08:03 | XMS_ITS | Encounter Summary ---
Author Organization [facility] Address [address] [place] [address] Care Team Providers Care Folder Seamer Automatic Name Role Phone Jose Bowers MD Primary Care Provider Levon lowry Encounter Details Date Type Department Care Team (Latest Contact Info) Description 04/28/2008 Outpatient Historical [facility] [address] [place] [address] AMBULANCE, [facility] Paraplegia ([facility]); Pressure Ulcer, Upper Back; Pressure Ulcer, Unspecified Stage; Wheelchair Dependence; Bed Confinement Status; Encounter for Long-Term (Current) Use of Other Medications; Encounter for Long-Term (Current) Use of Insulin ([facility]); Personal History of Allergy to Penicillin; Personal History of Allergy to Narcotic Agent Social History Tobacco Use Types Packs/Day Years Used Date Smoking Tobacco: Never Assessed Comments Unknown Sex and Gender Information Value Date Recorded Sex Assigned at Not on file 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 Gender Identity Not on file Sexual Orientation Not on file documented as of this encounter Plan of Treatment Not on file documented as of this encounter Visit Diagnoses Diagnosis Paraplegia ([facility]) Paraplegia Pressure ulcer, upper back(707.02) Pressure ulcer, upper back Pressure ulcer, unspecified stage(707.20) Pressure ulcer, unspecified stage Wheelchair dependence Bed confinement status Encounter for long-term (current) use of other medications Encounter for long-term (current) use of insulin ([facility]) Encounter for long-term (current) use of insulin Personal history of allergy to penicillin Personal history of allergy to narcotic agent documented in this encounter Additional Health Concerns Infection Onset Date Last Indicated Resolved Time MRSA Comment:Kapil 10/26/15 10/27/2015 10/27/2015 documented as of this encounter Care Teams Folder Seamer Automatic Relationship Specialty Start Date End Date Jose Bowers MD [address] [place] [address] PCP - General 12/31/05 documented as of this encounter
--- OUTSIDE RECORDS SUMMARY | 2025-03-09 08:04 | XMS_ITS | Encounter Summary ---
Author Organization [facility] Address [address] [place] [address] Care Team Providers Care Director Economic Name Role Phone Jose Bowers MD Primary Care Provider Unavailab le Encounter Details Date Type Department Care Team (Late st Contact Info) Description 12/31/2006 Outpatient Historical [facility] and [facility]- [place] [address] [place] [phone] Jose Bowers MD [address] [place] [address] Paraplegia (CMS/HCC) (Primary Dx) Social History Tobacco Use Types Packs/Day Years Used Date Smoking Tobacco: Never Assessed Comments Unknown Sex and Gender Information Value Date Recorded Sex Assigned at Not on file 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
--- OUTSIDE RECORDS SUMMARY | 2025-03-09 08:04 | XMS_ITS | Encounter Summary ---
Author Organization [facility] Address [address] [place] [address] Care Team Providers Care Professor Of Business Name Role Phone Jose Bowers MD Primary Care Provider Unavailab le Encounter Details Date Type Department Care Team (Late st Contact Info) Description 04/15/2006 Outpatient Historical [facility] Physical Med and Rehab- [place] [address] [place] [phone] Jose Bowers MD [address] [place] [address] Paraplegia (CMS/HCC) (Primary Dx) Social History Tobacco Use Types Packs/Day Years Used Date Smoking Tobacco: Never Assessed Comments Unknown Sex and Gender Information Value Date Recorded Sex Assigned at Not on file 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
--- OUTSIDE RECORDS SUMMARY | 2025-03-09 08:04 | XMS_ITS | Encounter Summary ---
Author Organization [facility] Address [address] [place] [address] Care Team Providers Care Supervising Appraiser Name Role Phone Jose Bowers MD Primary Care Provider Unavailab le Encounter Details Date Type Department Care Team (Late st Contact Info) Description 11/01/2005 Outpatient Historical [facility] Physical Med and Rehab- [place] [address] [place] [phone] Jose Bowers MD [address] [place] [address] Unspecified Paralysis (CMS/HCC) (Primary Dx); Neurogenic Bladder, NOS Social History Tobacco Use Types Packs/Day Years Used Date Smoking Tobacco: Never Assessed Comments Unknown Sex and Gender Information Value Date Recorded Sex Assigned at Not on file 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
--- OUTSIDE RECORDS SUMMARY | 2025-03-09 08:04 | XMS_ITS | Encounter Summary ---
Author Organization [facility] Address [address] [place] [address] Care Team Providers Care Fiberglasser Name Role Phone Jose Bowers MD Primary Care Provider Unavail le Encounter Details Date Type Department Care Team (Late st Contact Info) Description 12/31/2005 Outpatient Historical [facility] Jose Bowers MD [address] [place] [address] Paraplegia (CMS/HCC) (Primary Dx) Social History Tobacco Use Types Packs/Day Years Used Date Smoking Tobacco: Never Assessed Comments Unknown Sex and Gender Information Value Date Recorded Sex Assigned at Not on file 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 The new reference ranges are Males 38-174 Females 26-140 The old referance ranges were Males 0-155 Females 0-133 12/31/2005 12:4 8 PM CDT Jose Bowers MD CHEMISTRY ORDERABLES Final Resul t Performing Organization Address [facility] Phone Number INTERFACE SYSTEM Refer to clinic/hospital department * C-REACTIVE PROTEIN (12/31/2005 12:48 PM CDT) CRP 0.85 0.00 - 1.00 mg/dL INTERFACE SYSTEM 12/31/2005 12:4 8 PM CDT Jose Bowers MD CHEMISTRY ORDERABLES Final Resul t Performing Organization Address [facility] Phone Number INTERFACE SYSTEM Refer to clinic/hospital department * SEDIMENTATION RATE (12/31/2005 12:48 PM CDT) ESR (SEDIMENTATION RATE) 18 0 - 22 mm/hr INTERFACE SYSTEM 12/31/2005 12:4 8 PM CDT Jose Bowers MD HEMATOLOGY ORDERABLES Final Resu lt Performing Organization Address [facility] Phone Number INTERFACE SYSTEM Refer to [...] Onset Date Last Indicated Resolved Time MRSA Comment:Kpail 10/26/15 10/27/2015 10/27/2015 documented as of this encounter Care Teams Fiberglasser Relationship Specialty Start Date End Date Jose Bowers MD [address] [place] [address] PCP - General 12/31/05 documented as of this encounter
--- OUTSIDE RECORDS SUMMARY | 2025-03-09 08:04 | XMS_ITS | Encounter Summary ---
Author Organization [facility] Address [address] [place] [address] Care Team Providers Care Cheesemaker Helper Name Role Phone Jose Bowers MD Primary Care Provider Unavailab le Encounter Details Date Type Department Care Team (Late st Contact Info) Description 07/10/2007 Outpatient [facility] Physical Med and Rehab- [place] [address] [place] [address] Ramana Juarez MD [address] [place] [address] Social History Tobacco Use Types Packs/Day Years Used Date Smoking Tobacco: Never Assessed Comments Unknown Sex and Gender Information Value Date Recorded Sex Assigned at Not on file 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
--- OUTSIDE RECORDS SUMMARY | 2025-03-09 08:04 | XMS_ITS | Encounter Summary ---
Author Organization [facility] Address [address] [place] [address] Care Team Providers Care Investment Consultant Name Role Phone Jose Bowers MD Primary Care Provider Levon le Encounter Details Date Type Department Care Team (Late st Contact Info) Description 05/01/2008 Outpatient Historical HIS IN BED Sj Ed, Physician NO ADDRESS ON FILE Cassie Woodruff MD [address] [place] [phone] Riky Mejía MD NO ADDRESS ON FILE [...] on file Legal Sex Female 6:28 AM [employer] DEVEL[employer] Gender Identity Not on file Sexual Orientation Not on file documented as of this encounter Plan of Treatment Not on file documented as of this encounter Procedures Procedure Name Priority Date/Time Associated Diagnosis Comments POC GLUCOSE Routine 05/12/2008 7:37 AM [employer] DEVELOPER POC GLUCOSE Routine 05/11/2008 9:43 PM [employer] DEVELOPER POC GLUCOSE Routine 05/11/2008 5:35 PM [employer] DEVELOPER POC GLUCOSE Routine 05/11/2008 11:40 AM [employer] BI DEVELOPER POC GLUCOSE Routine 05/11/2008 7:38 AM [employer] DEVELOPER POC GLUCOSE Routine 05/10/2008 9:54 PM [employer] DEVELOPER POC GLUCOSE Routine 05/10/2008 5:34 PM [employer] DEVELOPER POC GLUCOSE Routine 05/10/2008 12:08 PM [employer] DEVELOPER POC GLUCOSE Routine 05/10/2008 8:31 AM [employer] BI DEVELOPER CBC WITH DIFFERENTIAL Routine 05/10/2008 5:47 AM [employer] BI DEVELOPER COMPREHENSIVE METABOLIC PANEL Routine 05/10/2008 5:47 AM [employer] DEVELOPER POC GLUCOSE Routine 05/09/2008 9:17 PM [employer] DEVELOPER POC GLUCOSE Routine 05/09/2008 6:31 PM [employer] DEVELOPER POC GLUCOSE Routine 05/09/2008 12:20 PM [employer] DEVELOPER POC GLUCOSE Routine 05/09/2008 8:50 AM [employer] BI DEVELOPER POC GLUCOSE Routine 05/08/2008 8:06 PM CDT [...] * (ABNORMAL) POC GLUCOSE (05/12/2008 7:37 AM [employer] BI DEVELOPER) GLUCOSE POC 124(H) 60 - 100 mg/dL [facility] Venous blood specimen (specimen) 05/12/2008 7:37 AM [employer] BI DEVELOPER 05/13/2008 3:52 AM [employer] DEVELOPER us Riky Mejía MD POINT OF CARE TESTING Final Result Performing Organization Address [facility] Phone Number INTERFACE SYSTEM Refer to clinic/hospital department [facility] CLIA# [id number] [address] [place] [address] * (ABNORMAL) POC GLUCOSE (05/11/2008 9:43 PM [employer] DEVELOPER) GLUCOSE POC 123(H) 60 - 100 mg/dL [facility] Venous blood specimen (specimen) 05/11/2008 9:43 PM [employer] BI DEVELOPER 05/12/2008 3:33 AM [employer] BI DEVELOPER us Riky Mejía MD POINT OF CARE TESTING Final Result Performing Organization Address [facility] de Phone Number INTERFACE SYSTEM Refer to clinic/hospital department [facility] CLIA# [id number] [address] [place] [address] * (ABNORMAL) POC GLUCOSE (05/11/2008 5:35 PM [employer] DEVELOPER) GLUCOSE POC 117(H) 60 - 100 mg/dL [facility] Venous blood specimen (specimen) 05/11/2008 5:35 PM [employer] DEVELOPER 05/12/2008 3:33 AM [employer] BI DEVELOPER Riky Mejía MD POINT OF CARE TESTING Final Result Performing Organization Address [facility] de Phone Number INTERFACE SYSTEM Refer to clinic/hospital department [facility] CLIA# [id number] [address] [place] [address] * (ABNORMAL) POC GLUCOSE (05/11/2008 11:40 AM [employer] BI DEVELOPER) GLUCOSE POC 132(H) 60 - 100 mg/dL [facility] Venous blood specimen (specimen) 05/11/2008 11:40 AM [employer] BI DEVELOPER 05/12/2008 3:30 AM [employer] DEVELOPER Riky Mejía MD POINT OF CARE TESTING Final Result Performing Organization Address [facility] Phone Number INTERFACE SYSTEM Refer to clinic/hospital department [facility] CLIA# [id number] [address] [place] [address] * (ABNORMAL) POC GLUCOSE (05/11/2008 7:38 AM [employer] BI DEVELOPER) GLUCOSE POC 121(H) 60 - 100 mg/dL [facility] Venous blood specimen (specimen) 05/11/2008 7:38 AM [employer] BI DEVELOPER 05/12/2008 3:33 AM [employer] BI DEVELOPER Riky Mejía MD POINT OF CARE TESTING Final Result Performing Organization Address [facility] de Phone Number INTERFACE SYSTEM Refer to clinic/[facility] CLIA# [id number] [address] [place] [address] * (ABNORMAL) POC GLUCOSE (05/10/2008 9:54 PM [employer] BI DEVELOPER) GLUCOSE POC 122(H) 60 - 100 mg/dL [facility] Venous blood specimen (specimen) 05/10/2008 9:54 PM [employer] DEVELOPER 05/11/2008 4:24 AM [employer] BI DEVELOPER Riky Mejía MD POINT OF CARE TESTING Final Result Performing Organization Address [facility] Phone Number INTERFACE SYSTEM Refer to clinic/hospital department [facility] CLIA# [id number] [address] [place] [address] * (ABNORMAL) POC GLUCOSE (05/10/2008 5:34 PM [employer] BI DEVELOPER) GLUCOSE POC 111(H) 60 - 100 mg/dL [facility] Venous blood specimen (specimen) 05/10/2008 5:34 PM [employer] DEVELOPER 05/11/2008 4:24 AM [employer] BI DEVELOPER Riky Mejía MD POINT OF CARE TESTING Final Result Performing Organization Address [facility] Phone Number INTERFACE SYSTEM Refer to clinic/hospital department [facility] CLIA# [id number] [address] [place] [address] * (ABNORMAL) POC GLUCOSE (05/10/2008 12:08 PM [employer] BI DEVELOPER) GLUCOSE POC 127(H) 60 - 100 mg/dL [facility] Venous blood specimen (specimen) 05/10/2008 12:08 PM [employer] DEVELOPER 05/11/2008 4:18 AM [employer] BI DEVELOPER Riky Mejía MD POINT OF CARE TESTING Final Result Performing Organization Address [facility] de Phone Number INTERFACE SYSTEM Refer to clinic/hospital department [facility] CLIA# [id number] [address] [place] [address] * (ABNORMAL) POC GLUCOSE (05/10/2008 8:31 AM [employer] BI DEVELOPER) GLUCOSE POC 122(H) 60 - 100 mg/dL [facility] Venous blood specimen (specimen) 05/10/2008 8:31 AM [employer] BI DEVELOPER 05/11/2008 4:18 AM [employer] BI DEVELOPER Riky Mejía MD POINT OF CARE TESTING Final Result INTERFACE SYSTEM Refer to clinic/hospital department [facility] CLIA# [id number] [address] [place] [address] * (ABNORMAL) COMPREHENSIVE METABOLIC PANEL (05/10/2008 5:47 AM [employer] BI DEVELOPER) GLOBULIN (CALC) 2.3(L) 2.4 - 3.9 g/dL [facility] SODIUM 141 136 - 145 mEq/L [facility] BILIRUBIN TOTAL 0.4 0.3 - 1.2 mg/dL [facility] TOTAL PROTEIN 5.0(L) 6.3 - 8.2 g/dL [facility] BUN 7 7 - 17 mg/dL [facility] AST 24 8 - 33 U/L [facility] CO2 30 22 - 32 mmol/l [facility] ALBUMIN/GLOBULIN RATIO 1.2 1.0 - 2.3 [facility] ALBUMIN 2.7(L) 3.5 - 5.0 g/dL [facility] POTASSIUM 3.3(L) 3.5 - 5.0 mEq/L [facility] ANION GAP 7(L) 9 - 20 mEq/L [facility] CALCIUM 8.0(L) 8.4 - 10.5 mg/dL [facility] CREATININE 0.4(L) 0.7 - 1.2 mg/dL [facility] ALT 10 4 - 36 IU/L [facility] GLUCOSE 99 70 - 110 mg/dL [facility] CHLORIDE 107 95 - 110 mEq/L [facility] OSMOLALITY, CALCULATED 286 275 - 295 mOsm/Kg [facility] ALKALINE PHOSPHATASE 73 25 - 100 U/L [facility] Blood specimen (specimen) 05/10/2008 5:47 AM [employer] BI DEVELOPER 05/10/2008 5:52 AM [employer] BI DEVELOPER Riky Mejía MD CHEMISTRY ORDERABLES Final Result INTERFACE SYSTEM Refer to clinic/hospital department [facility] CLIA# [id number] [facility] [place] [address] * (ABNORMAL) CBC WITH DIFFERENTIAL (05/10/2008 5:47 AM [employer] BI DEVELOPER) LYMPHOCYTE ABSOLUTE 0.9(L) 1.2 - 4.0 K/ul [facility] MCV 96.4 84.0 - 103.[address] [facility] MPV 10.1 8.9 - 12.[address] [facility] BASOPHILS ABSOLUTE 0.0 0.0 - 0.2 K/ul [facility] BASOPHILS 0.7 0.0 - 1.0 % [facility] HEMOGLOBIN 8.3(L) 12.0 - 16.0 g/dL [facility] RDW 18.6(H) 11.0 - 14.5 % [facility] MONOCYTE ABSOLUTE 0.6 0.1 - 0.6 K/ul [facility] MONOCYTES 9.3 2.0 - 10.0 % [facility] WBC 6.1 4.5 - 11.0 K/ul [facility] MCH 29.5 27.0 - 34.[address] [facility] NEUTROPHIL ABSOLUTE 4.3 2.0 - 8.0 K/ul [facility] NEUTROPHILS 70.5 42.2 - 75.2 % [facility] HEMATOCRIT 27.1(L) 36.0 - 46.0 % [facility] EOSINOPHILS 4.1 0.0 - 7.0 % [facility] PLATELETS 278 140 - 440 K/ul [facility] PERIPHERAL BLOOD SMEAR REVIEW Automated Diff [facility] EOSINOPHIL ABSOLUTE 0.3 0.0 - 0.7 K/ul [facility] RBC 2.81(L) 4.20 - 5.40 Mil/ul [facility] LYMPHOCYTES 15.4(L) 24.0 - 44.0 % [facility] MCHC 30.6 30.0 - 35.0 g/dL [facility] Blood specimen (specimen) 05/10/2008 5:47 AM [employer] BI DEVELOPER 05/10/2008 5:52 AM [employer] BI DEVELOPER us Ottoniel Vanegas MD HEMATOLOGY ORDERABLES Teresa l Result Performing Organization Address [facility] Phone Number INTERFACE SYSTEM Refer to clinic/hospital department [facility] CLIA# [id number] [address] [place] [address] * (ABNORMAL) POC GLUCOSE (05/09/2008 9:17 PM [employer] BI DEVELOPER) COMMENT POC Follow Protocol [facility] GLUCOSE POC 116(H) 60 - 100 mg/dL [facility] Venous blood specimen (specimen) 05/09/2008 9:17 PM [employer] BI DEVELOPER 05/10/2008 3:50 AM [employer] BI DEVELOPER us Riky Mejía MD POINT OF CARE TESTING Final Result Performing Organization Address [facility] Phone Number INTERFACE SYSTEM Refer to clinic/hospital department [facility] CLIA# [id number] [address] [place] [address] * POC GLUCOSE (05/09/2008 6:31 PM [employer] BI DEVELOPER) GLUCOSE POC 96 60 - 100 mg/dL [facility] Venous blood specimen (specimen) 05/09/2008 6:31 PM [employer] BI DEVELOPER 05/10/2008 3:50 AM [employer] BI DEVELOPER us Riky Mejía MD POINT OF CARE TESTING Final Result Performing Organization Address [facility] de Phone Number INTERFACE SYSTEM Refer to clinic/hospital department [facility] CLIA# [id number] [address] [place] [address] * (ABNORMAL) POC GLUCOSE (05/09/2008 12:20 PM [employer] BI DEVELOPER) GLUCOSE POC 123(H) 60 - 100 mg/dL [facility] Venous blood specimen (specimen) 05/09/2008 12:20 PM [employer] BI DEVELOPER 05/10/2008 3:50 AM [employer] BI DEVELOPER Riky Mejía MD POINT OF CARE TESTING Final Result Performing Organization Address [facility] de Phone Number INTERFACE SYSTEM Refer to clinic/hospital department [facility] CLIA# [id number] [address] [place] [address] * (ABNORMAL) POC GLUCOSE (05/09/2008 8:50 AM [employer] BI DEVELOPER) GLUCOSE POC 139(H) 60 - 100 mg/dL [facility] Venous blood specimen (specimen) 05/09/2008 8:50 AM [employer] BI DEVELOPER 05/10/2008 3:50 AM [employer] BI DEVELOPER Riky Mejía MD POINT OF CARE TESTING Final Result Performing Organization Address [facility] de Phone Number INTERFACE SYSTEM Refer to clinic/hospital department [facility] CLIA# [id number] [address] [place] [address] * (ABNORMAL) POC GLUCOSE (05/08/2008 8:06 PM CDT) GLUCOSE POC 115(H) 60 - 100 mg/dL [facility] COMMENT POC Recheck result [facility] Venous blood specimen (specimen) 05/08/2008 8:06 PM CDT 05/10/2008 7:16 AM [employer] BI DEVELOPER Riky Mejía MD POINT OF CARE TESTING Final Result Performing Organization Address [facility] de Phone Number INTERFACE SYSTEM Refer to clinic/hospital department [facility] CLIA# [id number] [address] [place] [address] * (ABNORMAL) POC GLUCOSE (05/08/2008 6:26 PM CDT) COMMENT POC Recheck result [facility] GLUCOSE POC 119(H) 60 - 100 mg/dL [facility] Venous blood specimen (specimen) 05/08/2008 6:26 PM CDT 05/10/2008 7:16 AM [employer] BI DEVELOPER Riky Mejía MD POINT OF CARE TESTING Final Result Performing Organization Address [facility] de Phone Number INTERFACE SYSTEM Refer to clinic/hospital department [facility] CLIA# [id number] [address] [place] [address] * (ABNORMAL) POC GLUCOSE (05/08/2008 12:27 PM CDT) [facility] GLUCOSE POC 130(H) 60 - 100 mg/dL [facility] Venous blood specimen (specimen) 05/08/2008 12:27 PM CDT 05/09/2008 1:13 AM CDT Riky Mejía MD POINT OF CARE TESTING Final Result Performing Organization Address [facility] Phone Number INTERFACE SYSTEM Refer to clinic/hospital department [facility] CLIA# [id number] [address] [place] [address] * (ABNORMAL) CBC WITH DIFFERENTIAL (05/08/2008 7:35 AM CDT) HEMOGLOBIN 8.0(L) 12.0 - 16.0 g/dL [facility] MONOCYTES 8.7 2.0 - 10.0 % [facility] RDW 18.5(H) 11.0 - 14.5 % [facility] MONOCYTE ABSOLUTE 0.7(H) 0.1 - 0.6 K/ul [facility] WBC 7.5 4.5 - 11.0 K/ul [facility] NEUTROPHILS 73.3 42.2 - 75.2 % [facility] MCH 29.7 27.0 - 34.[address] [facility] NEUTROPHIL ABSOLUTE 5.5 2.0 - 8.0 K/ul [facility] HEMATOCRIT 25.8(L) 36.0 - 46.0 % [facility] PLATELETS 219 140 - 440 K/ul [facility] EOSINOPHIL ABSOLUTE 0.3 0.0 - 0.7 K/ul [facility] EOSINOPHILS 4.3 0.0 - 7.0 % [facility] RBC 2.69(L) 4.20 - 5.40 Mil/ul [facility] MCHC 31.0 30.0 - 35.0 g/dL [facility] LYMPHOCYTE ABSOLUTE 0.9(L) 1.2 - 4.0 K/ul [facility] LYMPHOCYTES 12.6(L) 24.0 - 44.0 % [facility] MCV 95.9 84.0 - 103.[address] [facility] BASOPHILS 1.1(H) 0.0 - 1.0 % [facility] MPV 10.6 8.9 - 12.[address] [facility] BASOPHILS ABSOLUTE 0.1 0.0 - 0.2 K/ul [facility] Blood specimen (specimen) 05/08/2008 7:35 AM CDT 05/08/2008 7:48 AM CDT us Riky Mejía MD HEMATOLOGY ORDERABLES Final Result INTERFACE SYSTEM Refer to clinic/hospital department [facility] CLIA# [id number] [facility] [place] [address] * (ABNORMAL) POC GLUCOSE (05/08/2008 5:15 AM CDT) GLUCOSE POC 132(H) 60 - 100 mg/dL [facility] Venous blood specimen (specimen) 05/08/2008 5:15 AM CDT 05/09/2008 1:13 AM CDT Riky Mejía MD POINT OF CARE TESTING Final Result Performing Organization Address [facility] de Phone Number INTERFACE SYSTEM Refer to clinic/hospital department [facility] CLIA# [id number] [address] [place] [address] * (ABNORMAL) POC GLUCOSE (05/07/2008 8:43 PM CDT) GLUCOSE POC 137(H) 60 - 100 mg/dL [facility] COMMENT POC Recheck result [facility] Venous blood specimen (specimen) 05/07/2008 8:43 PM CDT 05/10/2008 7:16 AM [employer] BI DEVELOPER Riky Mejía MD POINT OF CARE TESTING Final Result Performing Organization Address [facility] de Phone Number INTERFACE SYSTEM Refer to clinic/hospital department [facility] CLIA# [id number] [address] [place] [address] * (ABNORMAL) POC GLUCOSE (05/07/2008 5:13 PM CDT) GLUCOSE POC 137(H) 60 - 100 mg/dL [facility] COMMENT POC Recheck result [facility] Venous blood specimen (specimen) 05/07/2008 5:13 PM CDT 05/10/2008 7:16 AM [employer] BI DEVELOPER Riky Mejía MD POINT OF CARE TESTING Final Result Performing Organization Address [facility] de Phone Number INTERFACE SYSTEM Refer to clinic/hospital department [facility] CLIA# [id number] [address] [place] [address] * (ABNORMAL) POC GLUCOSE (05/07/2008 12:06 PM CDT) COMMENT POC Notify RN [facility] GLUCOSE POC 159(H) 60 - 100 mg/dL [facility] Venous blood specimen (specimen) 05/07/2008 12:06 PM CDT 05/08/2008 3:26 AM CDT Riky Mejía MD POINT OF CARE TESTING Final Result Performing Organization Address [facility] de Phone Number INTERFACE SYSTEM Refer to clinic/hospital department [facility] CLIA# [id number] [address] [place] [address] * (ABNORMAL) POC GLUCOSE (05/07/2008 8:20 AM CDT) GLUCOSE POC 135(H) 60 - 100 mg/dL [facility] COMMENT POC Notify R.N [facility] Venous blood specimen (specimen) 05/07/2008 8:20 AM CDT 05/08/2008 3:26 AM CDT Riky Mejía MD POINT OF CARE TESTING Final Result Performing Organization Address [facility] de Phone Number INTERFACE SYSTEM Refer to clinic/hospital department [facility] CLIA# [id number] [address] [place] [address] * (ABNORMAL) POC GLUCOSE (05/07/2008 5:22 AM CDT) GLUCOSE POC 133(H) 60 - 100 mg/dL [facility] Venous blood specimen (specimen) 05/07/2008 5:22 AM CDT 05/08/2008 3:25 AM CDT us Riky Mejía MD POINT OF CARE TESTING Final Result Performing Organization Address [facility] de Phone Number INTERFACE SYSTEM Refer to clinic/hospital department [facility] CLIA# [id number] [address] [place] [address] * (ABNORMAL) POC GLUCOSE (05/06/2008 8:39 PM CDT) GLUCOSE POC 116(H) 60 - 100 mg/dL [facility] COMMENT POC Notify R.N [facility] Venous blood specimen (specimen) 05/06/2008 8:39 PM CDT 05/07/2008 3:27 AM CDT us Riky Mejía MD POINT OF CARE TESTING Final Result INTERFACE SYSTEM Refer to clinic/hospital department [facility] CLIA# [id number] [address] [place] [address] * CT ABDOMEN PELVIS W CONTRAST (05/06/2008 [...] [facility] (specimen) 05/06/2008 5:38 PM CDT 05/07/2008 3:27 AM CDT Riky Mejía MD POINT OF CARE TESTING Final Result Performing Organization Address [facility] de Phone Number INTERFACE SYSTEM Refer to clinic/hospital department [facility] CLIA# [id number] [address] [place] [address] * (ABNORMAL) POC GLUCOSE (05/06/2008 12:55 PM CDT) GLUCOSE POC 120(H) 60 - 100 mg/dL [facility] Venous blood specimen (specimen) 05/06/2008 12:55 PM CDT 05/07/2008 3:27 AM CDT Riky Mejía MD POINT OF CARE TESTING Final Result Performing Organization Address [facility] Phone Number INTERFACE SYSTEM Refer to clinic/hospital department [facility] CLIA# [id number] [address] [place] [address] * (ABNORMAL) POC GLUCOSE (05/06/2008 8:03 AM CDT) GLUCOSE POC 134(H) 60 - 100 mg/dL [facility] Venous blood specimen (specimen) 05/06/2008 8:03 AM CDT 05/07/2008 3:24 AM CDT Riky Mejía MD POINT OF CARE TESTING Final Result Performing Organization Address [facility] de Phone Number INTERFACE SYSTEM Refer to clinic/hospital [facility] CLIA# [id number] [address] [place] [address] * (ABNORMAL) BASIC METABOLIC PANEL (05/06/2008 5:34 AM CDT) CREATININE 0.5(L) 0.7 - 1.2 mg/dL [facility] CALCIUM 8.1(L) 8.4 - 10.5 mg/dL [facility] GLUCOSE 111(H) 70 - 110 mg/dL [facility] CHLORIDE 107 95 - 110 mEq/L [facility] ANION GAP 11 9 - 20 mEq/L [facility] SODIUM 137 136 - 145 mEq/L [facility] BUN 10 7 - 17 mg/dL [facility] CO2 23 22 - 32 mmol/l [facility] POTASSIUM 3.7 3.5 - 5.0 mEq/L [facility] OSMOLALITY, CALCULATED 281 275 - 295 mOsm/Kg [facility] Blood specimen (specimen) 05/06/2008 5:34 AM CDT 05/06/2008 5:34 AM CDT us Riky Mejía MD CHEMISTRY ORDERABLES Final Result INTERFACE SYSTEM Refer to clinic/hospital department [facility] CLIA# [id number] [address] [place] [address] * (ABNORMAL) CBC WITH DIFFERENTIAL (05/06/2008 5:34 AM CDT) LYMPHOCYTES 11.5(L) 24.0 - 44.0 % [facility] MCHC 30.9 30.0 - 35.0 g/dL [facility] LYMPHOCYTE ABSOLUTE 0.9(L) 1.2 - 4.0 K/ul [facility] MCV 96.3 84.0 - 103.[address] [facility] MPV 11.1 8.9 - 12.[address] [facility] BASOPHILS ABSOLUTE 0.0 0.0 - 0.2 K/ul [facility] BASOPHILS 0.4 0.0 - 1.0 % [facility] HEMOGLOBIN 8.0(L) 12.0 - 16.0 g/dL [facility] RDW 18.5(H) 11.0 - 14.5 % [facility] MONOCYTE ABSOLUTE 0.7(H) 0.1 - 0.6 K/ul [facility] MONOCYTES 9.2 2.0 - 10.0 % [facility] WBC 7.7 4.5 - 11.0 K/ul [facility] MCH 29.7 27.0 - 34.[address] [facility] NEUTROPHIL ABSOLUTE 5.8 2.0 - 8.0 K/ul [facility] NEUTROPHILS 75.3(H) 42.2 - 75.2 % [facility] HEMATOCRIT 25.9(L) 36.0 - 46.0 % [facility] EOSINOPHILS 3.6 0.0 - 7.0 % [facility] PLATELETS 203 140 - 440 K/ul [facility] PERIPHERAL BLOOD SMEAR REVIEW Automated Diff [facility] EOSINOPHIL ABSOLUTE 0.3 0.0 - 0.7 K/ul [facility] RBC 2.69(L) 4.20 - 5.40 Mil/ul [facility] Blood specimen (specimen) 05/06/2008 5:34 AM CDT 05/06/2008 5:34 AM CDT us Riky Mejía MD HEMATOLOGY ORDERABLES Final Result Performing Organization Address City/[facility] de Phone Number INTERFACE SYSTEM Refer to clinic/hospital department [facility] CLIA# [id number] [place] [id number] * (ABNORMAL) POC GLUCOSE (05/05/2008 8:26 PM CDT) GLUCOSE POC 157(H) 60 - 100 mg/dL [facility] Venous blood specimen (specimen) 05/05/2008 8:26 PM CDT 05/06/2008 3:31 AM CDT us Riky Mejía MD POINT OF CARE TESTING Final Result Performing Organization Address City/[facility] de Phone Number INTERFACE SYSTEM Refer to clinic/hospital department [facility] CLIA# [id number] [address] [place] [address] * (ABNORMAL) POC GLUCOSE (05/05/2008 4:57 PM CDT) GLUCOSE POC 124(H) 60 - 100 mg/dL [facility] Venous blood specimen (specimen) 05/05/2008 4:57 PM CDT 05/06/2008 3:31 AM CDT Riky Mejía MD POINT OF CARE TESTING Final Result Performing Organization Address [facility] de Phone Number INTERFACE SYSTEM Refer to clinic/hospital department [facility] CLIA# [id number] [address] [place] [address] * (ABNORMAL) POC GLUCOSE (05/05/2008 11:30 AM CDT) GLUCOSE POC 127(H) 60 - 100 mg/dL [facility] Venous blood specimen (specimen) 05/05/2008 11:30 AM CDT 05/06/2008 3:31 AM CDT Riky Mejía MD POINT OF CARE TESTING Final Result Performing Organization Address [facility] de Phone Number INTERFACE SYSTEM Refer to clinic/hospital department [facility] CLIA# [id number] [address] [place] [address] * (ABNORMAL) POC GLUCOSE (05/05/2008 8:05 AM CDT) GLUCOSE POC 137(H) 60 - 100 mg/dL [facility] Venous blood specimen (specimen) 05/05/2008 8:05 AM CDT 05/06/2008 3:31 AM CDT Riky Mejía MD POINT OF CARE TESTING Final Result Performing Organization Address City/[facility] de Phone Number INTERFACE SYSTEM Refer to clinic/hospital department [facility] CLIA# [id number] [address] [place] [address] * (ABNORMAL) POC GLUCOSE (05/04/2008 9:56 PM CDT) GLUCOSE POC 115(H) 60 - 100 mg/dL [facility] [facility] Venous blood specimen (specimen) 05/04/2008 9:56 PM CDT 05/05/2008 2:27 AM CDT Riky Mejía MD POINT OF CARE TESTING Final Result Performing Organization Address City/[facility] de Phone Number INTERFACE SYSTEM Refer to clinic/hospital department [facility] CLIA# [id number] [address] [place] [address] * (ABNORMAL) POC GLUCOSE (05/04/2008 5:34 PM CDT) GLUCOSE POC 120(H) 60 - 100 mg/dL [facility] Venous blood specimen (specimen) 05/04/2008 5:34 PM CDT 05/05/2008 5:02 AM CDT Riky Mejía MD POINT OF CARE TESTING Final Result Performing Organization Address [facility] de Phone Number INTERFACE SYSTEM Refer to clinic/hospital department [facility] CLIA# [id number] [address] [place] [address] * (ABNORMAL) POC GLUCOSE (05/04/2008 11:15 AM CDT) GLUCOSE POC 133(H) 60 - 100 mg/dL [facility] Venous blood specimen (specimen) 05/04/2008 11:15 AM CDT 05/05/2008 2:27 AM CDT Riky Mejía MD POINT OF CARE TESTING Final Result Performing Organization Address City/[facility] Co de Phone Number INTERFACE SYSTEM Refer to clinic/hospital department [facility] CLIA# [id number] [address] [place] [address] * URINE CULTURE (05/04/2008 9:06 AM CDT) FINAL REPORT No growth INTERFA CE SYSTEM 05/04/2008 9:06 AM CDT 05/04/2008 9:06 AM CDT us Riky Mejía MD MICROBIOLOGY - [facility] Final Result Performing Organization Address [facility] Phone Number INTERFACE SYSTEM Refer to clinic/hospital department * (ABNORMAL) POC GLUCOSE (05/04/2008 7:37 AM CDT) GLUCOSE POC 139(H) 60 - 100 mg/dL [facility] Venous blood specimen (specimen) 05/04/2008 7:37 AM CDT 05/05/2008 2:27 AM CDT us Riky Mejía MD POINT OF CARE TESTING Final Result Performing Organization Address [facility] Phone Number INTERFACE SYSTEM Refer to clinic/hospital department [facility] CLIA# [id number] [address] [place], [place] [address] * (ABNORMAL) URINALYSIS MICROSCOPY ONLY (05/04/2008 2:12 AM CDT) HYALINE CAST None Seen 0 - 2 [facility] WBC URINE 0-2 0 - [address] [facility] BACTERIA UA Small(A) None Seen [facility] RBC UA 6-10(A) 0 - [address] [facility] Urine specimen (specimen) 05/04/2008 2:12 AM CDT 05/04/2008 2:12 AM CDT Narrative INTERFACE SYSTEM - 05/04/2008 2:30 AM CDT Microscopic ordered by policy us Riky Mejía MD URINE ORDERABLES Final Resu lt Performing Organization Address [facility] Phone Number INTERFACE SYSTEM Refer to clinic/hospital department [facility] CLIA# [id number] [address] [place] [address] * ICTOTEST (05/04/2008 2:12 AM CDT) Pathologist [facility] ICTO Negative Negative [facility] Urine specimen (specimen) 05/04/2008 2:12 AM CDT 05/04/2008 2:12 AM CDT Narrative INTERFACE SYSTEM - 05/04/2008 2:30 AM CDT Bili verified by ictotest us Riky Mejía MD URINE ORDERABLES Final Resu lt Performing Organization Address [facility] de Phone Number INTERFACE SYSTEM Refer to clinic/hospital department [facility] CLIA# [id number] [address] [place] [address] * (ABNORMAL) URINALYSIS (05/04/2008 2:12 AM CDT) Pathologist [facility] LEUKOCYTE ESTERASE UA NEGATIVE NEGATIVE [facility] KETONES UA Trace(A) NEGATIVE [facility] COLOR UA Yellow Straw [facility] PROTEIN UA 100 mg/dl(A) NEGATIVE [facility] SPECIFIC GRAVITY UA 1.010 <=1.005 [facility] NITRITE UA NEGATIVE NEGATIVE [facility] UROBILINOGEN UA 0.[address] [facility] CLARITY UA Clear Clear [facility] GLUCOSE UA NEGATIVE NEGATIVE [facility] MICRO EXAM Yes(A) No [facility] PH UA 6.5 5.0 - 9.0 [facility] BLOOD UA MODERATE(A) NEGATIVE [facility] Urine specimen (specimen) 05/04/2008 2:12 AM CDT 05/04/2008 2:12 AM CDT us Riky Mejía MD URINE ORDERABLES Final Resu lt Performing Organization Address [facility] de Phone Number INTERFACE SYSTEM Refer to clinic/hospital department [facility] CLIA# [id number] [address] [place] [address] * BLOOD CULTURE (05/04/2008 2:02 AM CDT) Pathologist [facility] FINAL REPORT No growth INTERFA CE SYSTEM Blood specimen (specimen) 05/04/2008 2:02 AM CDT 05/04/2008 3:36 AM CDT us Riky Mejía MD [facility] Final Result Performing Organization Address [facility] Phone Number INTERFACE SYSTEM Refer to clinic/hospital department * (ABNORMAL) BASIC METABOLIC PANEL (05/04/2008 1:55 AM CDT) Pathologist [facility] OSMOLALITY, CALCULATED 282 275 - 295 mOsm/Kg [facility] POTASSIUM 4.3 3.5 - 5.0 mEq/L [facility] CREATININE 0.6(L) 0.7 - 1.2 mg/dL [facility] CALCIUM 9.0 8.4 - 10.5 mg/dL [facility] GLUCOSE 120(H) 70 - 110 mg/dL [facility] CHLORIDE 108 95 - 110 mEq/L [facility] SODIUM 135(L) 136 - 145 mEq/L [facility] ANION GAP 10 9 - 20 mEq/L [facility] BUN 17 7 - 17 mg/dL [facility] CO2 21(L) 22 - 32 mmol/l [facility] Blood specimen (specimen) 05/04/2008 1:55 AM CDT 05/04/2008 2:49 AM CDT us Riky Mejía MD CHEMISTRY ORDERABLES Final Result Performing Organization Address [facility] de Phone Number INTERFACE SYSTEM Refer to clinic/hospital department [facility] CLIA# [id number] [address] [place] [address] * (ABNORMAL) CBC WITH DIFFERENTIAL (05/04/2008 1:55 AM CDT) PERIPHERAL BLOOD SMEAR REVIEW Automated Diff [facility] EOSINOPHIL ABSOLUTE 0.2 0.0 - 0.7 K/ul [facility] RBC 2.86(L) 4.20 - 5.40 Mil/ul [facility] MCHC 31.6 30.0 - 35.0 g/dL [facility] LYMPHOCYTES 11.5(L) 24.0 - 44.0 % [facility] LYMPHOCYTE ABSOLUTE 1.0(L) 1.2 - 4.0 K/ul [facility] MCV 96.2 84.0 - 103.[address] [facility] MPV 11.1 8.9 - 12.[address] [facility] BASOPHILS ABSOLUTE 0.0 0.0 - 0.2 K/ul [facility] BASOPHILS 0.4 0.0 - 1.0 % [facility] HEMOGLOBIN 8.7(L) 12.0 - 16.0 g/dL [facility] RDW 18.6(H) 11.0 - 14.5 % [facility] MONOCYTE ABSOLUTE 1.0(H) 0.1 - 0.6 K/ul [facility] MONOCYTES 10.9(H) 2.0 - 10.0 % [facility] WBC 8.9 4.5 - 11.0 K/ul [facility] NEUTROPHILS 75.1 42.2 - 75.2 % [facility] MCH 30.4 27.0 - 34.[address] [facility] NEUTROPHIL ABSOLUTE 6.7 2.0 - 8.0 K/ul [facility] HEMATOCRIT 27.5(L) 36.0 - 46.0 % [facility] PLATELETS 180 140 - 440 K/ul [facility] EOSINOPHILS 2.1 0.0 - 7.0 % [facility] Blood specimen (specimen) 05/04/2008 1:55 AM CDT 05/04/2008 2:25 AM CDT us Riky Mejía MD HEMATOLOGY ORDERABLES Final Result Performing Organization Address [facility] de Phone Number INTERFACE SYSTEM Refer to clinic/hospital department [facility] CLIA# [id number] [address] [place] [address] * BLOOD CULTURE (05/04/2008 1:55 AM CDT) FINAL REPORT No growth INTERFA CE SYSTEM REPORT/SPECIM EN COMMENT Specimen processed with suboptimal blood volume. Recommended adult blood volume is 8-10 mL per bottle. INTERFACE SYSTEM Blood specimen (specimen) 05/04/2008 1:55 AM CDT 05/04/2008 3:36 AM CDT us Riky Mejía MD MICROBIOLOGY - [facility]AL [facility] Final Result Performing Organization Address [facility] Phone Number INTERFACE SYSTEM Refer to clinic/hospital department * (ABNORMAL) POC GLUCOSE (05/03/2008 9:24 PM CDT) GLUCOSE POC 137(H) 60 - 100 mg/dL [facility] Venous blood specimen (specimen) 05/03/2008 9:24 PM CDT 05/04/2008 4:27 AM CDT us Riky Mejía MD POINT OF CARE TESTING Final Result Performing Organization Address [facility] Phone Number INTERFACE SYSTEM Refer to clinic/hospital department [facility] CLIA# [id number] [facility] [place] [address] * (ABNORMAL) POC GLUCOSE (05/03/2008 4:35 PM CDT) GLUCOSE POC 128(H) 60 - 100 mg/dL [facility] Venous blood specimen (specimen) 05/03/2008 4:35 PM CDT 05/04/2008 4:27 AM CDT us Riky Mejía MD POINT OF CARE TESTING Final Result INTERFACE SYSTEM Refer to clinic/hospital department [facility] CLIA# [id number] [place] [address] * CT ABDOMEN PELVIS W CONTRAST (05/03/2008 [...] mm volumetric acquisition with 125 mL intravenous [id number]. Comparison: None. Findings: Consolidative atelectasis versus airspace [...] The above findings were discussed with Dr. Rkiy Mejía at time ofdictation. 7. Intraluminal filling [...] APTT (05/03/2008 9:00 AM CDT) INR 1.3 [facility] Comment: Expected Values for INR: DVT/PE Goal INR 2.5; range 2.0 - 3.0 Valve Replacement Tissue Goal INR 2.5; range 2.0 - 3.0 Mechanical Goal INR 3.0; range 2.5 - 3.5 POST-MN Goal INR 2.5; range 2.0 - 3.0 or Goal 3.0; range 2.5 - 3.5 Atrial Fibrillation Goal INR 2.5; range 2.0 - 3.0 Ischemic Stroke Goal INR 2.5; range 2.0 - 3.0 For additional information see Guidelines for Anticoagulation available from the pharmacy [facility]. [phone] PTT 38.5(H) 22.5 - 36.[address] [facility] Comment: Therapeutic Range: Hi-level PE/DVT heparin protocol 80.1 -95.0 sec Lo-level PE/DVT heparin protocol 67.1 - 80.0 sec Cardiac Heparin Protocol 67.1 - 85.0 sec Neuro Heparin Protocol 67.1 - 80.0 sec As of 09/25/2007 note change in APTT Normal Range. PROTIME 18.0(H) 12.8 - 15.[address] [facility] Comment:As of 2007 not e change in normal range. Blood specimen (specimen) 05/03/2008 9:00 AM CDT 05/03/2008 9:10 AM CDT Narrative INTERFACE SYSTEM - 05/03/2008 9:23 AM CDT use blood in the lab us Riky Mejía MD HEMATOLOGY ORDERABLES Edite d INTERFACE SYSTEM Refer to clinic/hospital department [facility] CLIA# [id number] [address] [place] [address] * (ABNORMAL) BASIC METABOLIC PANEL (05/03/2008 5:39 AM CDT) GLUCOSE 122(H) 70 - 110 mg/dL [facility] CHLORIDE 106 95 - 110 mEq/L [facility] SODIUM 135(L) 136 - 145 mEq/L [facility] ANION GAP 14 9 - 20 mEq/L [facility] BUN 20(H) 7 - 17 mg/dL [facility] CO2 20(L) 22 - 32 mmol/l [facility] OSMOLALITY, CALCULATED 284 275 - 295 mOsm/Kg [facility] POTASSIUM 5.0 3.5 - 5.0 mEq/L [facility] CREATININE 0.6(L) 0.7 - 1.2 mg/dL [facility] CALCIUM 9.1 8.4 - 10.5 mg/dL [facility] Blood specimen (specimen) 05/03/2008 5:39 AM CDT 05/03/2008 6:15 AM CDT us Riky Mejía MD CHEMISTRY ORDERABLES Final Result INTERFACE SYSTEM Refer to clinic/hospital department [facility] CLIA# [id number] [address] [place] [address] * (ABNORMAL) CBC WITH DIFFERENTIAL (05/03/2008 5:39 AM CDT) HEMATOCRIT 28.4(L) 36.0 - 46.0 % [facility] LYMPHOCYTE ABSOLUTE 0.6(L) 1.2 - 4.0 K/ul [facility] LYMPHOCYTES 5.9(L) 24.0 - 44.0 % [facility] MCHC 31.3 30.0 - 35.0 g/dL [facility] BASOPHILS 0.2 0.0 - 1.0 % [facility] MPV 10.9 8.9 - 12.[address] [facility] WBC 10.2 4.5 - 11.0 K/ul [facility] BASOPHILS ABSOLUTE 0.0 0.0 - 0.2 K/ul [facility] PERIPHERAL BLOOD SMEAR REVIEW Automated Diff [facility] MCV 96.3 84.0 - 103.[address] [facility] MONOCYTES 9.9 2.0 - 10.0 % [facility] RDW 18.3(H) 11.0 - 14.5 % [facility] MONOCYTE ABSOLUTE 1.0(H) 0.1 - 0.6 K/ul [facility] RBC 2.95(L) 4.20 - 5.40 Mil/ul [facility] HEMOGLOBIN 8.9(L) 12.0 - 16.0 g/dL [facility] NEUTROPHILS 82.5(H) 42.2 - 75.2 % [facility] NEUTROPHIL ABSOLUTE 8.5(H) 2.0 - 8.0 K/ul [facility] MCH 30.2 27.0 - 34.[address] [facility] PLATELETS 163 140 - 440 K/ul [facility] EOSINOPHIL ABSOLUTE 0.2 0.0 - 0.7 K/ul [facility] EOSINOPHILS 1.5 0.0 - 7.0 % [facility] Blood specimen (specimen) 05/03/2008 5:39 AM CDT 05/03/2008 6:15 AM CDT Riky Mejía MD HEMATOLOGY ORDERABLES Final Result Performing Organization Address City/[facility]/ZIP Co de Phone Number INTERFACE SYSTEM Refer to clinic/hospital department [facility] CLIA# [id number] [address] [place] [address] * URINE CULTURE (05/02/2008 10:05 PM CDT) FINAL REPORT No growth INTERFA CE SYSTEM 05/02/2008 10:0 5 PM CDT 05/02/2008 10:05 PM CDT Riky Mejía MD MICROBIOLOGY - [facility] Final Result Performing Organization Address [facility] de Phone Number INTERFACE SYSTEM Refer to clinic/hospital department * (ABNORMAL) URINALYSIS MICROSCOPY ONLY (05/02/2008 9:19 PM CDT) BACTERIA UA Few(A) None Seen [facility] WBC URINE 3-5(A) 0 - 2 [facility] RBC UA 0-2 0 - 2 [facility] HYALINE CAST 0-2 0 - 2 [facility] Urine specimen (specimen) 05/02/2008 9:19 PM CDT 05/02/2008 9:19 PM CDT Narrative INTERFACE SYSTEM - 05/02/2008 9:43 PM CDT Microscopic ordered by policy Riky Mejía MD URINE ORDERABLES Final Resu lt Performing Organization Address [facility] de Phone Number INTERFACE SYSTEM Refer to clinic/hospital department [facility] CLIA# [id number] [address] [place] [address] * (ABNORMAL) ICTOTEST (05/02/2008 9:19 PM CDT) ICTO Positive(A) Negative [facility] Urine specimen (specimen) 05/02/2008 9:19 PM CDT 05/02/2008 9:19 PM CDT Narrative INTERFACE SYSTEM - 05/02/2008 9:43 PM CDT Bili verified by ictotest us Riky Mejía MD URINE ORDERABLES Final Resu lt Performing Organization Address [facility] Phone Number INTERFACE SYSTEM Refer to clinic/hospital department [facility] CLIA# [id number] [address] [place] [address] * (ABNORMAL) URINALYSIS (05/02/2008 9:19 PM CDT) CLARITY UA Clear Clear [facility] MICRO EXAM Yes(A) No [facility] GLUCOSE UA NEGATIVE NEGATIVE [facility] PH UA 5.5 5.0 - 9.0 [facility] BLOOD UA NEGATIVE NEGATIVE [facility] LEUKOCYTE ESTERASE UA NEGATIVE NEGATIVE [facility] KETONES UA Trace(A) NEGATIVE [facility] COLOR UA Yellow Straw [facility] PROTEIN UA 100 mg/dl(A) NEGATIVE [facility] SPECIFIC GRAVITY UA >=1.030(A) <=1.005 [facility] NITRITE UA POSITIVE(A) NEGATIVE [facility] UROBILINOGEN UA 0.[address] [facility] Urine specimen (specimen) 05/02/2008 9:19 PM CDT 05/02/2008 9:19 PM CDT iRky Mejía MD URINE ORDERABLES Final Resu lt Performing Organization Address [facility] Phone Number INTERFACE SYSTEM Refer to clinic/hospital department [facility] CLIA# [id number] [address] [place] [address] * (ABNORMAL) BASIC METABOLIC PANEL (05/02/2008 6:50 PM CDT) BUN 22(H) 7 - 17 mg/dL [facility] CO2 23 22 - 32 mmol/l [facility] POTASSIUM 5.3(H) 3.5 - 5.0 mEq/L [facility] Comment: Specimen slightly hemolyzed OSMOLALITY, CALCULATED 278 275 - 295 mOsm/Kg [facility] CREATININE 0.7 0.7 - 1.2 mg/dL [facility] CALCIUM 9.2 8.4 - 10.5 mg/dL [facility] GLUCOSE 124(H) 70 - 110 mg/dL [facility] CHLORIDE 101 95 - 110 mEq/L [facility] ANION GAP 12 9 - 20 mEq/L [facility] SODIUM 131(L) 136 - 145 mEq/L [facility] Blood specimen (specimen) 05/02/2008 6:50 PM CDT 05/02/2008 7:01 PM CDT us Riky Mejía MD CHEMISTRY ORDERABLES Final Result Performing Organization Address [facility] de Phone Number INTERFACE SYSTEM Refer to clinic/hospital department [facility] CLIA# [id number] [address] [place] [address] * (ABNORMAL) BASIC METABOLIC PANEL (05/02/2008 8:38 AM CDT) OSMOLALITY, CALCULATED 280 275 - 295 mOsm/Kg [facility] CREATININE 0.8 0.7 - 1.2 mg/dL [facility] CALCIUM 9.5 8.4 - 10.5 mg/dL [facility] GLUCOSE 123(H) 70 - 110 mg/dL [facility] CHLORIDE 100 95 - 110 mEq/L [facility] ANION GAP 13 9 - 20 mEq/L [facility] SODIUM 131(L) 136 - 145 mEq/L [facility] BUN 26(H) 7 - 17 mg/dL [facility] CO2 24 22 - 32 mmol/l [facility] POTASSIUM 5.5(H) 3.5 - 5.0 mEq/L [facility] Blood specimen (specimen) 05/02/2008 8:38 AM CDT 05/02/2008 8:43 AM CDT Riky Mejía MD CHEMISTRY ORDERABLES Final Result INTERFACE SYSTEM Refer to clinic/hospital department [facility] CLIA# [id number] [address] [place] [address] * (ABNORMAL) CBC WITH DIFFERENTIAL (05/02/2008 6:55 AM CDT) LYMPHOCYTE ABSOLUTE 1.4 1.2 - 4.0 K/ul [facility] MCV 95.8 84.0 - 103.[address] [facility] MPV 11.2 8.9 - 12.[address] [facility] BASOPHILS ABSOLUTE 0.1 0.0 - 0.2 K/ul [facility] BASOPHILS 0.4 0.0 - 1.0 % [facility] HEMOGLOBIN 10.8(L) 12.0 - 16.0 g/dL [facility] RDW 18.3(H) 11.0 - 14.5 % [facility] MONOCYTE ABSOLUTE 1.5(H) 0.1 - 0.6 K/ul [facility] MONOCYTES 11.3(H) 2.0 - 10.0 % [facility] WBC 13.0(H) 4.5 - 11.0 K/ul [facility] MCH 30.3 27.0 - 34.[address] [facility] NEUTROPHIL ABSOLUTE 10.0(H) 2.0 - 8.0 K/ul [facility] NEUTROPHILS 76.9(H) 42.2 - 75.2 % [facility] HEMATOCRIT 34.2(L) 36.0 - 46.0 % [facility] EOSINOPHILS 0.8 0.0 - 7.0 % [facility] PLATELETS 164 140 - 440 K/ul [facility] PERIPHERAL BLOOD SMEAR REVIEW Automated Diff [facility] EOSINOPHIL ABSOLUTE 0.1 0.0 - 0.7 K/ul [facility] RBC 3.57(L) 4.20 - 5.40 Mil/ul [facility] LYMPHOCYTES 10.6(L) 24.0 - 44.0 % [facility] MCHC 31.6 30.0 - 35.0 g/dL [facility] Blood specimen (specimen) 05/02/2008 6:55 AM CDT 05/02/2008 7:02 AM CDT us Riky Mejía MD HEMATOLOGY ORDERABLES Final Result Performing Organization Address City/State/[facility] Co de Phone Number INTERFACE SYSTEM Refer to clinic/hospital department [facility] CLIA# [id number] [address] [place] [address] documented in this encounter Visit Diagnoses Diagnosis [...] unspecified Debility, unspecified Pressure ulcer, stage II(707.22) ([facility]/HCC) Pressure ulcer, stage II Perforation of intestine (CMS/HCC) Perforation of intestine Unspecified procedure as the cause of abnormal reaction of patient, or of later complication, without mention of misadventure at time of procedure Peritoneal abscess (CMS/HCC) Peritoneal abscess Unspecified protein-calorie malnutrition Pressure ulcer, stage IV(707.24) (CMS/HCC) Pressure ulcer, stage IV Pressure ulcer, upper back(707.02) Pressure ulcer, upper back Pressure ulcer, stage III(707.23) ([facility]/HCC) Pressure ulcer, stage III Removal of other organ (partial) (total) causing abnormal patient reaction, or later complication, without mention of misadventure at time of operation documented in this encounter Additional Health Concerns Infection Onset Date Last Indicated Resolved Time MRSA Comment:Kapil 10/26/15 10/27/2015 10/27/2015 documented as of this encounter Care Teams Investment Consultant Relationship Specialty Start Date End Date Jose Bowers MD [address] [place] [id number] PCP - General 12/31/05 documented as of this encounter
--- OUTSIDE RECORDS SUMMARY | 2025-03-09 08:04 | XMS_ITS | Encounter Summary ---
Author Organization [facility] Address [address] [place] [address] Care Team Providers Care Branch Manager Name Role Phone Jose Bowers MD Primary Care Provider Unavailab le Encounter Details Date Type Department Care Team (Late st Contact Info) Description 10/01/2005 Outpatient Historical [facility] [place] [address] [place] [id number] Jose Bowers MD [address] [place] [address] Paraplegia (CMS/HCC) (Primary Dx); Neurogenic Bladder, NOS Social History Tobacco Use Types Packs/Day Years Used Date Smoking Tobacco: Never Assessed Comments Unknown Sex and Gender Information Value Date Recorded Sex Assigned at Not on file 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
--- OUTSIDE RECORDS SUMMARY | 2025-03-09 08:04 | XMS_ITS | Encounter Summary ---
Author Organization [facility] Address [address] [place] [address] Care Team Providers Care Park Interpretive Ranger Name Role Phone Jose Bowers MD Primary Care Provider Unavail le Encounter Details Date Type Department Care Team (Late st Contact Info) Description 12/31/2006 Outpatient Historical [facility] OUTPATIENT Jose Bowers MD [address] [place] [address] Pain in Soft Tissues of Limb (Primary Dx) Social History Tobacco Use Types Packs/Day Years Used Date Smoking Tobacco: Never Assessed Comments Unknown Sex and Gender Information Value Date Recorded Sex Assigned at Not on file Legal Sex Female 6:28 AM [employer]ACH[employer] Gender Identity Not on file Sexual Orientation [...] INR 3.0; range 2.5 - 3.5 POST-HI Goal INR 2.5; range 2.0 - 3.0 [...] documented as of this encounter Care Teams Park Interpretive Ranger Relationship Specialty Start Date End Date Jose Bowers MD [address] [place] [address] PCP - General 12/31/05 documented as of this encounter
--- OUTSIDE RECORDS SUMMARY | 2025-03-09 08:04 | XMS_ITS | Encounter Summary ---
Author Organization 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
--- OUTSIDE RECORDS SUMMARY | 2025-03-09 08:04 | XMS_ITS | Encounter Summary ---
Author Organization [facility] Address [address] [place] [address] Care Team Providers Care Sensor Technician Name Role Phone Jose Bowers MD Primary Care Provider Unavail le Encounter Details Date Type Department Care Team (Late st Contact Info) Description 11/26/2005 Inpatient Historical [facility] IN BED Jose Bowers MD [address] [place] [address] Other Specified Rehabilitation Procedure (Primary Dx) Social History Tobacco Use Types Packs/Day Years Used Date Smoking Tobacco: Never Assessed Comments Unknown Sex and Gender Information Value Date Recorded Sex Assigned at Not on file Legal Sex Female 6:28 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 [facility] has changed the methodology for TSH, and with this change the reference range has changed from 0.49-4.67 to 0.35-5.5 uIU/ml. 11/27/2005 6:09 AM CDT Jose Bowers MD CHEMISTRY ORDERABLES Final Resul t Performing Organization Address [facility] Phone Number INTERFACE SYSTEM Refer [...] Goal INR 3.0; range 2.5 - 3.5 POST-OR Goal INR 2.5; range 2.0 - 3.0 or Goal 3.0; range 2.5 - 3.5 Atrial Fibrillation Goal INR 2.5; range 2.0 - 3.0 Ischemic Stroke Goal INR 2.5; range 2.0 - 3.0 For additional information see Guidelines for Anticoagulation available from the pharmacy [facility] 11/27/2005 6:09 AM CDT Jose Bowers MD HEMATOLOGY ORDERABLES Final Resu lt Performing Organization Address City/[facility] Co de Phone Number INTERFACE SYSTEM Refer to clinic/hospital department * (ABNORMAL) C-REACTIVE PROTEIN (11/27/2005 6:09 AM CDT) CRP 1.19(H) 0.00 - 1.00 mg/dL INTERFACE SYSTEM 11/27/2005 6:09 AM CDT Jose Bowers MD CHEMISTRY ORDERABLES Final Resul t Performing Organization Address City/[facility] Co de [...] INTERFACE SYSTEM Comment: As of 05 the [facility] has changed testing methods. The new reference range is 25-100 The old referance range was 38-126 AST 26 8 - 33 U/L INTERFACE SYSTEM Comment: As of 05 the [facility] has changed testing methods. The new reference range is 8-33 The old referance range was Males 17-59 Females 14-36 ALT 27 4 - 36 IU/L INTERFACE SYSTEM Comment: As of 05 the [facility] has changed testing methods. The new reference range is 4-36 The old referance range was Males 21-72 Females 9-52 BILIRUBIN TOTAL 0.2(L) 0.3 - 1.2 mg/dL INTERFACE SYSTEM Comment: As of 05 the [facility] has changed testing methods. The new reference range is 0.3-1.2 The old referance range was 0.2-1.4 11/27/2005 6:09 AM CDT Jose Bowers MD CHEMISTRY ORDERABLES Final Resul t Performing Organization Address [facility] Phone Number INTERFACE SYSTEM Refer to clinic/hospital department * (ABNORMAL) SEDIMENTATION RATE (11/27/2005 6:09 AM CDT) ESR (SEDIMENTATION RATE) 25(H) 0 - 22 mm/hr INTERFACE SYSTEM 11/27/2005 6:09 AM CDT Jose Bowers MD HEMATOLOGY ORDERABLES Final Resu lt Performing Organization Address [facility] Phone Number INTERFACE SYSTEM Refer [...] ORDERABLES Final Resu lt Performing Organization Address [facility] de Phone Number INTERFACE SYSTEM [...] URINE ORDERABLES Final Result Performing Organization Address [facility] de Phone Number INTERFACE SYSTEM [...] INTERFACE SYSTEM 11/27/2005 6:00 AM CDT Jose oBwers MD URINE ORDERABLES Final Result Performing Organization Address City/State/[facility] Co de [...] IMPRESSION: Limited study. Nonspecific findings present. [facility] D: [id number] Dictated By: Marcus Eng M.D. [...] documented as of this encounter Care Teams Sensor Technician Relationship Specialty Start Date End Date Jose Bowers MD [address] [place] [address] PCP - General 12/31/05 documented as of this encounter
--- OUTSIDE RECORDS SUMMARY | 2025-03-09 08:04 | XMS_ITS | Encounter Summary ---
Author Organization [facility] Address [address] [place] [address] Care Team Providers Care Seafood Farmer Name Role Phone Jose Bowers MD Primary Care Provider Unavailab le Encounter Details Date Type Department Care Team (Late st Contact Info) Description 02/14/2006 Outpatient Historical [facility] Physical Med and Rehab- [place] [address] [place] [phone] Jose Bowers MD [address] [place] [address] Paraplegia (CMS/HCC) (Primary Dx) Social History Tobacco Use Types Packs/Day Years Used Date Smoking Tobacco: Never Assessed Comments Unknown Sex and Gender Information Value Date Recorded Sex Assigned at Not on file 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 Sex Female 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 DIRECTOR OF CORPORATE MARKETING Gender Identity Not on file Sexual Orientation Not on file documented as of this encounter Plan of Treatment Not on file documented as of this encounter Visit Diagnoses Diagnosis Paraplegia (CMS/HCC)- Primary Paraplegia documented in this encounter Additional Health Concerns Infection Onset Date Last Indicated Resolved Time MRSA Comment:Kapil 10/26/15 10/27/2015 10/27/2015 documented as of this encounter Care Teams Seafood Farmer Relationship Specialty Start Date End Date Jose Bowers MD [address] [place] [address] PCP - General 12/31/05 documented as of this encounter
--- OUTSIDE RECORDS SUMMARY | 2025-03-09 08:04 | XMS_ITS | Encounter Summary ---
Author Organization [facility] Address [address] [place] [address] Care Team Providers Care Air Vice Marshal Name Role Phone Jose Bowers MD Primary Care Provider Unavailab le Encounter Details Date Type Department Care Team (Latest Contact Info) Description 02/05/2005 Outpatient Historical [facility] [address] [place] [address] [place] [phone] Morenita Muñiz MD [address] [place] [address] ADMINISTRTVE ENCOUNT NOS (Primary Dx) Social History Tobacco Use Types Packs/Day Years Used Date Smoking Tobacco: Never Assessed Comments Unknown Sex and Gender Information Value Date Recorded Sex Assigned at Not on file 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 Sex Female 6:28 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
--- OUTSIDE RECORDS SUMMARY | 2025-03-09 08:04 | XMS_ITS | Encounter Summary ---
Author Organization [facility] Address [address] [place] [address] Care Team Providers Care Card Boxer Name Role Phone Jose Bowers MD Primary Care Provider Unavailab le Encounter Details Date Type Department Care Team (Late st Contact Info) Description 07/24/2006 Outpatient [facility] Physical Med and Rehab- [place] [address] [place] [phone] Jose Bowers MD [address] [place] [address] Paraplegia (CMS/HCC) (Primary Dx); Difficulty in Walking; Pain in Limb Social History Tobacco Use Types Packs/Day Years Used Date Smoking Tobacco: Never Assessed Comments Unknown Sex and Gender Information Value Date Recorded Sex Assigned at Not on file 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
--- OUTSIDE RECORDS SUMMARY | 2025-03-09 08:04 | XMS_ITS | Patient Health Record ---
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 confirmed Plan Of Treatment Future Test Test Name Order Date US Renal [id number] 11/06/2023 Abdomen [id number] 11/06/2023 Insurance Providers Payer Name Payer Address Payer Phone Subscriber Number Group Number Insured Name Patient Relationship to Insured Coverage Start Date Coverage End Date [facility] Medicare Advantage PPO [address] [address] [place] [address] [id number] Jami Gandhi Self - patient is the insured [place] Medicaid [address] [place] [address] [id number] [phone] [id number] Jami Gandhi Self - patient is the insured Medications Administered Medication Instructions Date of Administration Dosage Notes cefTRIAXone Sodium 01/23/2023 2 g [facility] [id number] Medical (General) History Medical History History ICD Code Mumps Chicken Pox Pneumonia Bladder Infections Glaucoma Hernia Blood/Plasma Tranfusion chronic bladder infections osteomylitis chronic venous insufficiency of lower ex tremity colostomy HX DVT neurogenic bladder parapleglia Surgical History Surgery Date(Month/Year) Osteomyelitis 2020 Vena Cava Filter for Blood Clots 07/2004 Right Lower Leg 2018 Abdominal Surgery 2007 Ovarian Cyst 2008 Spinal Surgery x2 T-4 Paraplegic 2005 Hysterectomy 2004 Hospitalization History Reason Date(Month/Year) See Surgical list
--- OUTSIDE RECORDS SUMMARY | 2025-03-09 08:04 | XMS_ITS | Encounter Summary ---
Author Organization [facility] Address [address] [place] [address] Care Team Providers Care Postal Transportation Clerk Name Role Phone Jose Bowers MD Primary Care Provider Unavailab le Encounter Details Date Type Department Care Team (Late st Contact Info) Description 10/02/2006 Outpatient Historical [facility] Physical Med and Rehab- [place] [address] [place] [phone] Jose Bowers MD [address] [place] [address] Paraplegia (CMS/HCC) (Primary Dx) Social History Tobacco Use Types Packs/Day Years Used Date Smoking Tobacco: Never Assessed Comments Unknown Sex and Gender Information Value Date Recorded Sex Assigned at Not on file Legal Sex Female 6:28 AM VP OUTCOMES Gender Identity Not on file Sexual Orientation Not on file documented as of this encounter Plan of Treatment Not on file documented as of this encounter Visit Diagnoses Diagnosis Paraplegia (CMS/HCC)- Primary Paraplegia documented in this encounter Additional Health Concerns Infection Onset Date Last Indicated Resolved Time MRSA Comment:Kapil 10/26/15 10/27/2015 10/27/2015 documented as of this encounter Care Teams Postal Transportation Clerk Relationship Specialty Start Date End Date Jose Bowers MD [address] [place] [address] PCP - General 12/31/05 documented as of this encounter
--- OUTSIDE RECORDS SUMMARY | 2025-03-09 08:04 | XMS_ITS | Encounter Summary ---
Author Organization [facility] Address [address] [place] [address] Care Team Providers Care Attraction Attendant Name Role Phone Jose Bowers MD Primary Care Provider Unavailab le Encounter Details Date Type Department Care Team (Latest Contact Info) Description 07/24/2006 Outpatient Historical [facility] [address] 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
--- OUTSIDE RECORDS SUMMARY | 2025-03-09 08:04 | XMS_ITS | Clinical Summary ---
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
--- OUTSIDE RECORDS SUMMARY | 2025-03-09 08:04 | XMS_ITS | Encounter Summary ---
Author Organization [facility] Address [address] [place] [address] Care Team Providers Care Dump Grounds Checker Name Role Phone Jose Bowers MD Primary Care Provider Unavailab le Encounter Details Date Type Department Care Team (Latest Contact Info) Description 08/30/2006 Outpatient Historical [facility] Services [address] [place] [phone] Jose Bowers MD [address] [place] [address] Pain in Joint, Pelvic Region and Thigh (Primary Dx) Social History Tobacco Use Types Packs/Day Years Used Date Smoking Tobacco: Never Assessed Comments Unknown Sex and Gender Information Value Date Recorded Sex Assigned at Not on file Legal Sex Female 6:28 AM INDUSTRIAL THERAPIST Gender Identity Not on file Sexual Orientation Not on file documented as of this encounter Plan of Treatment Not on file documented as of this encounter Procedures Procedure Name Priority Date/Time Associated Diagnosis Comments CBC WITH DIFFERENTIAL Routine 08/30/2006 12:42 PM INDUSTRIAL THERAPIST SEDIMENTATION RATE Routine 08/30/2006 12 :42 PM INDUSTRIAL THERAPIST CK Routine 08/30/2006 12:42 PM INDUSTRIAL THERAPIST documented in this encounter Results * (ABNORMAL) CK (08/30/2006 12:42 PM INDUSTRIAL THERAPIST) CK 201(H) 26 - 140 U/L INTERFACE SYSTEM Comment: As of 05 the [facility] has changed testing methods. The new reference ranges are Males 38-174 Females 26-140 The old referance ranges were Males 0-155 Females 0-133 08/30/2006 12:4 2 PM INDUSTRIAL THERAPIST Jose Bowers MD CHEMISTRY ORDERABLES Edited Performing Organization Address City/[facility] Co de Phone Number INTERFACE SYSTEM Refer to clinic/hospital department * (ABNORMAL) CBC WITH DIFFERENTIAL (08/30/2006 12:42 PM INDUSTRIAL THERAPIST) WBC 5.1 4.5 - 11.0 K/ul INTERFACE [...] K/ul INTERFACE SYSTEM 08/30/2006 12:4 2 PM INDUSTRIAL THERAPIST oJse Bowers MD HEMATOLOGY ORDERABLES Edited Performing Organization Address City/[facility] Co de Phone Number INTERFACE SYSTEM Refer to clinic/hospital department * (ABNORMAL) SEDIMENTATION RATE (08/30/2006 12:42 PM INDUSTRIAL THERAPIST) ESR (SEDIMENTATION RATE) 27(H) 0 - 22 mm/hr INTERFACE SYSTEM 08/30/2006 12:4 2 PM INDUSTRIAL THERAPIST Jose Bowers MD HEMATOLOGY ORDERABLES Edited INTERFACE SYSTEM Refer to clinic/hospital department documented in this encounter Visit Diagnoses Diagnosis Pain in joint, pelvic region and thigh- Primary documented in this encounter Additional Health Concerns Infection Onset Date Last Indicated Resolved Time MRSA Comment:Kapil 10/26/15 10/27/2015 10/27/2015 documented as of this encounter Care Teams Dump Grounds Checker Relationship Specialty Start Date End Date Jose Bowers MD [address] [place] [address] PCP - General 12/31/05 documented as of this encounter
--- OUTSIDE RECORDS SUMMARY | 2025-03-09 08:04 | XMS_ITS | Encounter Summary ---
Author Organization [facility] Address [address] [place] [address] Care Team Providers Care Typing Checker Name Role Phone Jose Bowers MD Primary Care Provider Unavailab le Encounter Details Date Type Department Care Team (Late st Contact Info) Description 08/30/2006 Outpatient Historical [facility] Physical Med and Rehab- [place] [id number] [place] [phone] Jose Bowers MD [address] [place] [address] Pain in Joint, Pelvic Region and Thigh (Primary Dx); Pain in Limb; Paraplegia (CMS/HCC) Social History Tobacco Use Types Packs/Day Years Used Date Smoking Tobacco: Never Assessed Comments Unknown Sex and Gender Information Value Date Recorded Sex Assigned at Not on file Legal Sex Female 6:28 AM HOT PLATE PLYWOOD PRESS FEEDER Gender Identity Not on file Sexual Orientation Not on file documented as of this encounter Plan of Treatment Not on file documented as of this encounter Procedures Procedure Name Priority Date/Time Associated Diagnosis Comments XR PELVIS 3+ VW Routine 08/30/2006 12:33 PM HOT PLATE PLYWOOD PRESS FEEDER documented in this encounter Results * XR PELVIS 3+ VW (08/30/2006 12:33 PM HOT PLATE PLYWOOD PRESS FEEDER) Anatomical Region Laterality Modality Pelvis Other 08/30/2006 12:3 3 PM HOT PLATE PLYWOOD PRESS FEEDER Narrative 08/30/2006 12:33 PM HOT PLATE PLYWOOD PRESS FEEDER PELVIS AND RIGHT HIP: TECHNIQUE: Two views [...] documented as of this encounter Care Teams Typing Checker Relationship Specialty Start Date End Date Jose Bowers MD [address] [place] [address] PCP - General 12/31/05 documented as of this encounter
--- OUTSIDE RECORDS SUMMARY | 2025-03-09 08:04 | XMS_ITS | Clinical Summary ---
Author Organization [facility] Address [address] [facility] [place] [address] Care Team Providers Care Combustion Engineer Name Role Phone Jose Bowers MD [...] on file Legal Sex Female 6:28 AM HR REPRESENTATIVE Gender Identity Not on file Sexual [...] AND B MEDICAID [place] [employer] , [address] [address] Advance Directives For more information, please contact: [phone] * Full Code (Latest Code Status on File) Date Activated Date Inactivated Comments 10/26/2015 6:24 AM 10/28/2015 4:22 PM Care Teams Combustion Engineer Relationship Specialty Start Date End Date Jose Bowers MD [address] [place] [address] PCP - General 12/31/05
--- OUTSIDE RECORDS SUMMARY | 2025-03-09 08:04 | XMS_ITS | Encounter Summary ---
Author Organization [facility] Address [address] [place] [address] Care Team Providers Care Potato Chip Cooker Machine Name Role Phone Jose Bowers MD Primary Care Provider Unavailab le Encounter Details Date Type Department Care Team (Late st Contact Info) Description 01/30/[address] 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
--- OUTSIDE RECORDS SUMMARY | 2025-03-09 08:04 | XMS_ITS | Encounter Summary ---
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 Role Phone Jose Bowers MD Primary [...] on file Legal Sex Female 6:28 AM SOLUTIONS ARCHITECT Gender Identity Not on file Sexual [...] GLUCOSE POC 109(H) 60 - 100 mg/dL [facility] Venous blood specimen (specimen) 04/08/2008 4:10 PM CDT 04/09/2008 7:42 AM CDT Riky Mejía MD POINT OF CARE TESTING Final Result Performing Organization Address City/State/[facility] Co de Phone Number INTERFACE SYSTEM Refer to clinic/hospital department [facility] CLIA# [id number] [facility] [place] [address] * (ABNORMAL) POC GLUCOSE (04/08/2008 11:00 AM CDT) GLUCOSE POC 122(H) 60 - 100 mg/dL [facility] Venous blood specimen (specimen) 04/08/2008 11:00 AM CDT 04/09/2008 7:42 AM CDT us Riky Mejía MD POINT OF CARE TESTING Final Result Performing Organization Address [facility] de Phone Number INTERFACE SYSTEM Refer to clinic/hospital department [facility] CLIA# [id number] [address] [place] [address] * (ABNORMAL) POC GLUCOSE (04/08/2008 5:12 AM CDT) GLUCOSE POC 124(H) 60 - 100 mg/dL [facility] Venous blood specimen (specimen) 04/08/2008 5:12 AM CDT 04/08/2008 7:16 AM CDT Riky Mejía MD POINT OF CARE TESTING Final Result Performing Organization Address [facility] de Phone Number INTERFACE SYSTEM Refer to clinic/hospital department [facility] CLIA# [id number] [address] [place] [address] * (ABNORMAL) BASIC METABOLIC PANEL (04/08/2008 4:30 AM CDT) POTASSIUM 4.2 3.5 - 5.0 mEq/L [facility] OSMOLALITY, CALCULATED 284 275 - 295 mOsm/Kg [facility] CREATININE 0.5(L) 0.7 - 1.2 mg/dL [facility] CALCIUM 8.4 8.4 - 10.5 mg/dL [facility] GLUCOSE 141(H) 70 - 110 mg/dL [facility] CHLORIDE 102 95 - 110 mEq/L [facility] ANION GAP 9 9 - 20 mEq/L [facility] SODIUM 137 136 - 145 mEq/L [facility] BUN 11 7 - 17 mg/dL [facility] CO2 30 22 - 32 mmol/l [facility] Blood specimen (specimen) 04/08/2008 4:30 AM CDT 04/08/2008 4:30 AM CDT Riky Mejía MD CHEMISTRY ORDERABLES Final Result INTERFACE SYSTEM Refer to clinic/hospital department [facility] CLIA# [id number] [facility] [place] [address] * (ABNORMAL) CBC WITH DIFFERENTIAL (04/08/2008 4:30 AM CDT) MCV 90.8 84.0 - 103.0 Fl [facility] BASOPHILS 0.2 0.0 - 1.0 % [facility] MPV 10.7 8.9 - 12.8 Fl [facility] BASOPHILS ABSOLUTE 0.0 0.0 - 0.2 K/ul [facility] HEMOGLOBIN 10.6(L) 12.0 - 16.0 g/dL [facility] MONOCYTES 8.0 2.0 - 10.0 % [facility] RDW 16.8(H) 11.0 - 14.5 % [facility] MONOCYTE ABSOLUTE 1.0(H) 0.1 - 0.6 K/ul [facility] WBC 12.7(H) 4.5 - 11.0 K/ul [facility] NEUTROPHILS 86.4(H) 42.2 - 75.2 % [facility] MCH 29.4 27.0 - 34.0 pg [facility] NEUTROPHIL ABSOLUTE 10.9(H) 2.0 - 8.0 K/ul [facility] HEMATOCRIT 32.7(L) 36.0 - 46.0 % [facility] PLATELETS 149 140 - 440 K/ul [facility] EOSINOPHIL ABSOLUTE 0.1 0.0 - 0.7 K/ul [facility] EOSINOPHILS 0.7 0.0 - 7.0 % [facility] RBC 3.60(L) 4.20 - 5.40 Mil/ul [facility] MCHC 32.4 30.0 - 35.0 g/dL [facility] LYMPHOCYTE ABSOLUTE 0.6(L) 1.2 - 4.0 K/ul [facility] LYMPHOCYTES 4.7(L) 24.0 - 44.0 % [facility] Blood specimen (specimen) 04/08/2008 4:30 AM CDT 04/08/2008 4:30 AM CDT us Riky Mejía MD HEMATOLOGY ORDERABLES Final Result Performing Organization Address City/[facility] de Phone Number INTERFACE SYSTEM Refer to clinic/hospital department [facility] CLIA# [id number] [facility] [place] [address] * BLOOD CULTURE (04/07/2008 9:56 PM CDT) FINAL REPORT No growth INTERFA CE SYSTEM Blood specimen (specimen) 04/07/2008 9:56 PM CDT 04/07/2008 9:56 PM CDT us Riky Mejía MD MICROBIOLOGY - GENERAL MINERVA ATKINSON Final Result Performing Organization Address [facility] de Phone Number INTERFACE SYSTEM Refer to clinic/hospital department * BLOOD CULTURE (04/07/2008 9:56 PM CDT) FINAL REPORT No growth INTERFA CE SYSTEM Blood specimen (specimen) 04/07/2008 9:56 PM CDT 04/07/2008 9:56 PM CDT us Riky Mejía MD MICROBIOLOGY - GENERAL MINERVA ATKINSON Final Result Performing Organization Address [facility] de Phone Number INTERFACE SYSTEM Refer to clinic/hospital department * (ABNORMAL) POC GLUCOSE (04/07/2008 8:36 PM CDT) GLUCOSE POC 159(H) 60 - 100 mg/dL [facility] Venous blood specimen (specimen) 04/07/2008 8:36 PM CDT 04/08/2008 7:22 AM CDT us Riky Mejía MD POINT OF CARE TESTING Final Result Performing Organization Address City/[facility] de Phone Number INTERFACE SYSTEM Refer to clinic/hospital department [facility] CLIA# [id number] [address] [place] [address] * (ABNORMAL) POC GLUCOSE (04/07/2008 5:39 PM CDT) GLUCOSE POC 122(H) 60 - 100 mg/dL [facility] Venous blood specimen (specimen) 04/07/2008 5:39 PM CDT 04/08/2008 7:16 AM CDT Riky Mejía MD POINT OF CARE TESTING Final Result Performing Organization Address [facility] de Phone Number INTERFACE SYSTEM Refer to clinic/hospital department [facility] CLIA# [id number] [address] [place] [address] * (ABNORMAL) POC ISTAT EG 7+ (04/07/2008 4:27 PM CDT) FIO2 4 [facility] PO2 67(L) 80 - 105 mmHg [facility] CALCIUM IONIZED 1.15 1.12 - 1.32 mmol/l [facility] HEMATOCRIT ABG 32(L) 38 - 51 % [facility] PCO2 POC 45 35 - 45 mmHg [facility] SODIUM 137(L) 138 - 146 mEq/L [facility] BASE EXCESS 7(H) -2 - 3 mmol/l [facility] PH 7.45 7.35 - 7.45 Unit [facility] O2 SATURATION 94(L) 95 - 98 % [facility] PO2 TEMP CORRECT 67(L) 80 - 105 mmHg [facility] SPECIMEN TYPE Arterial [facility] Comment: Test Performed By [id number] Pulse OX: 99 Hemoglobin calculated from Hematocrit result PCO2 TEMP CORRECT 45 35 - 45 mmHg [facility] HEMOGLOBIN POC 10.9 +/-3 g/dL 12.0 - 16.0 g/dL [facility] POTASSIUM 4.0 3.5 - 4.9 mEq/L [facility] PH TEMP CORRECT 7.45 7.35 - 7.45 Unit [facility] HCO3 (CALC) POC 31.1(H) 22.0 - 26.0 mmol/l [facility] TCO2 (CALC) POC 32(H) 23 - 27 mmol/l [facility] Arterial blood specimen (specimen) 04/07/2008 4:27 PM CDT 04/07/2008 4:30 PM CDT Riky Mejía MD POINT OF CARE TESTING COM F inal Result Performing Organization Address [facility] de Phone Number INTERFACE SYSTEM Refer to clinic/hospital department [facility] CLIA# [id number] [address] [place] [address] * (ABNORMAL) POC GLUCOSE (04/07/2008 11:30 AM CDT) GLUCOSE POC 108(H) 60 - 100 mg/dL [facility] Venous blood specimen (specimen) 04/07/2008 11:30 AM CDT 04/08/2008 7:16 AM CDT Riky Mejía MD POINT OF CARE TESTING Final Result Performing Organization Address [facility] de Phone Number INTERFACE SYSTEM Refer to clinic/hospital department [facility] CLIA# [id number] [address] [place] [address] * (ABNORMAL) POC GLUCOSE (04/07/2008 5:02 AM CDT) GLUCOSE POC 138(H) 60 - 100 mg/dL [facility] Venous blood specimen (specimen) 04/07/2008 5:02 AM CDT 04/07/2008 7:10 AM CDT Riky Mejía MD POINT OF CARE TESTING Final Result INTERFACE SYSTEM Refer to clinic/hospital department [facility] CLIA# [id number] [address] [place] [address] * (ABNORMAL) CBC WITH DIFFERENTIAL (04/07/2008 3:13 AM CDT) HEMATOCRIT 30.3(L) 36.0 - 46.0 % [facility] EOSINOPHILS 1.6 0.0 - 7.0 % [facility] PLATELETS 140 140 - 440 K/ul [facility] PERIPHERAL BLOOD SMEAR REVIEW Automated Diff [facility] EOSINOPHIL ABSOLUTE 0.2 0.0 - 0.7 K/ul [facility] RBC 3.33(L) 4.20 - 5.40 Mil/ul [facility] LYMPHOCYTES 6.7(L) 24.0 - 44.0 % [facility] MCHC 32.3 30.0 - 35.0 g/dL [facility] LYMPHOCYTE ABSOLUTE 0.8(L) 1.2 - 4.0 K/ul [facility] MCV 91.0 84.0 - 103.0 Fl [facility] MPV 11.6 8.9 - 12.8 Fl [facility] BASOPHILS ABSOLUTE 0.0 0.0 - 0.2 K/ul [facility] BASOPHILS 0.2 0.0 - 1.0 % [facility] HEMOGLOBIN 9.8(L) 12.0 - 16.0 g/dL [facility] RDW 16.9(H) 11.0 - 14.5 % [facility] MONOCYTE ABSOLUTE 1.1(H) 0.1 - 0.6 K/ul [facility] MONOCYTES 9.4 2.0 - 10.0 % [facility] WBC 11.7(H) 4.5 - 11.0 K/ul [facility] MCH 29.4 27.0 - 34.0 pg [facility] NEUTROPHIL ABSOLUTE 9.6(H) 2.0 - 8.0 K/ul [facility] NEUTROPHILS 82.1(H) 42.2 - 75.2 % [facility] Blood specimen (specimen) 04/07/2008 3:13 AM CDT 04/07/2008 3:19 AM CDT us Riky Mejía MD HEMATOLOGY ORDERABLES Final Result Performing Organization Address City/[facility] Phone Number INTERFACE SYSTEM Refer to clinic/hospital department [facility] CLIA# [id number] [address] [place] [address] * (ABNORMAL) BASIC METABOLIC PANEL (04/07/2008 3:13 AM CDT) [facility] OSMOLALITY, CALCULATED 291 275 - 295 mOsm/Kg [facility] POTASSIUM 4.1 3.5 - 5.0 mEq/L [facility] CREATININE 0.6(L) 0.7 - 1.2 mg/dL [facility] CALCIUM 8.6 8.4 - 10.5 mg/dL [facility] GLUCOSE 141(H) 70 - 110 mg/dL [facility] CHLORIDE 105 95 - 110 mEq/L [facility] SODIUM 140 136 - 145 mEq/L [facility] ANION GAP 7(L) 9 - 20 mEq/L [facility] BUN 14 7 - 17 mg/dL [facility] CO2 32 22 - 32 mmol/l [facility] Blood specimen (specimen) 04/07/2008 3:13 AM CDT 04/07/2008 3:19 AM CDT us Riky Mejía MD CHEMISTRY ORDERABLES Final Result Performing Organization Address [facility] de Phone Number INTERFACE SYSTEM Refer to clinic/hospital department [facility] CLIA# [id number] [address] [place] [address] * (ABNORMAL) POC GLUCOSE (04/06/2008 8:09 PM CDT) [facility] GLUCOSE POC 118(H) 60 - 100 mg/dL [facility] Venous blood specimen (specimen) 04/06/2008 8:09 PM CDT 04/07/2008 7:13 AM CDT Riky Mejía MD POINT OF CARE TESTING Final Result Performing Organization Address [facility] Phone Number INTERFACE SYSTEM Refer to clinic/hospital department [facility] CLIA# [id number] [address] [place] [address] * (ABNORMAL) POC GLUCOSE (04/06/2008 5:03 PM CDT) GLUCOSE POC 131(H) 60 - 100 mg/dL [facility] Venous blood specimen (specimen) 04/06/2008 5:03 PM CDT 04/07/2008 7:10 AM CDT Riky Mejía MD POINT OF CARE TESTING Final Result Performing Organization Address [facility] Phone Number INTERFACE SYSTEM Refer to clinic/hospital department [facility] CLIA# [id number] [address] [place] [address] * (ABNORMAL) POC GLUCOSE (04/06/2008 10:59 AM CDT) GLUCOSE POC 128(H) 60 - 100 mg/dL [facility] Venous blood specimen (specimen) 04/06/2008 10:59 AM CDT 04/07/2008 7:10 AM CDT Riky Mejía MD POINT OF CARE TESTING Final Result Performing Organization Address [facility] de Phone Number INTERFACE SYSTEM Refer to clinic/hospital department [facility] CLIA# [id number] [address] [place] [address] * XR CHEST PA OR AP (04/06/2008 [...] GLUCOSE POC 126(H) 60 - 100 mg/dL [facility] Venous blood specimen (specimen) 04/06/2008 6:02 AM CDT 04/06/2008 7:01 AM CDT Riky Mejía MD POINT OF CARE TESTING Final Result INTERFACE SYSTEM Refer to clinic/hospital department [facility] CLIA# [id number] [address] [place] [address] * (ABNORMAL) CBC WITH DIFFERENTIAL (04/06/2008 3:55 AM CDT) NEUTROPHILS 81.1(H) 42.2 - 75.2 % [facility] MCH 29.1 27.0 - 34.0 pg [facility] NEUTROPHIL ABSOLUTE 8.9(H) 2.0 - 8.0 K/ul [facility] HEMATOCRIT 31.3(L) 36.0 - 46.0 % [facility] PLATELETS 122(L) 140 - 440 K/ul [facility] EOSINOPHIL ABSOLUTE 0.3 0.0 - 0.7 K/ul [facility] EOSINOPHILS 3.1 0.0 - 7.0 % [facility] RBC 3.47(L) 4.20 - 5.40 Mil/ul [facility] MCHC 32.3 30.0 - 35.0 g/dL [facility] LYMPHOCYTE ABSOLUTE 0.9(L) 1.2 - 4.0 K/ul [facility] LYMPHOCYTES 8.4(L) 24.0 - 44.0 % [facility] MCV 90.2 84.0 - 103.0 Fl [facility] BASOPHILS 0.2 0.0 - 1.0 % [facility] MPV 11.8 8.9 - 12.8 Fl [facility] BASOPHILS ABSOLUTE 0.0 0.0 - 0.2 K/ul [facility] HEMOGLOBIN 10.1(L) 12.0 - 16.0 g/dL [facility] MONOCYTES 7.2 2.0 - 10.0 % [facility] RDW 17.0(H) 11.0 - 14.5 % [facility] MONOCYTE ABSOLUTE 0.8(H) 0.1 - 0.6 K/ul [facility] WBC 11.0 4.5 - 11.0 K/ul [facility] Blood specimen (specimen) 04/06/2008 3:55 AM CDT 04/06/2008 4:00 AM CDT Marquis Scott MD HEMATOLOGY ORDERABLES Final Res ult INTERFACE SYSTEM Refer to clinic/hospital department [facility] CLIA# [id number] [facility] [place] [address] * (ABNORMAL) RENAL FUNCTION PANEL (04/06/2008 3:55 AM CDT) GLUCOSE 218(H) 70 - 110 mg/dL [facility] OSMOLALITY, CALCULATED 295 275 - 295 mOsm/Kg [facility] CHLORIDE 106 95 - 110 mEq/L [facility] ALBUMIN 3.0(L) 3.5 - 5.0 g/dL [facility] SODIUM 138 136 - 145 mEq/L [facility] BUN 22(H) 7 - 17 mg/dL [facility] CO2 30 22 - 32 mmol/l [facility] PHOSPHORUS 2.0(L) 2.5 - 4.6 mg/dL [facility] POTASSIUM 4.7 3.5 - 5.0 mEq/L [facility] ANION GAP 7(L) 9 - 20 mEq/L [facility] CREATININE 0.6(L) 0.7 - 1.2 mg/dL [facility] CALCIUM 8.2(L) 8.4 - 10.5 mg/dL [facility] Blood specimen (specimen) 04/06/2008 3:55 AM CDT 04/06/2008 4:00 AM CDT Marquis Scott MD CHEMISTRY ORDERABLES Final Resu lt Performing Organization Address City/[facility] Co de Phone Number INTERFACE SYSTEM Refer to clinic/hospital department [facility] CLIA# [id number] [address] [place] [address] * (ABNORMAL) POC GLUCOSE (04/05/2008 8:20 PM CDT) GLUCOSE POC 114(H) 60 - 100 mg/dL [facility] Venous blood specimen (specimen) 04/05/2008 8:20 PM CDT 04/06/2008 7:01 AM CDT us Riky Mejía MD POINT OF CARE TESTING Final Result Performing Organization Address [facility] Phone Number INTERFACE SYSTEM Refer to clinic/hospital department [facility] CLIA# [id number] [address] [place] [address] * (ABNORMAL) POC GLUCOSE (04/05/2008 4:50 PM CDT) GLUCOSE POC 118(H) 60 - 100 mg/dL [facility] Venous blood specimen (specimen) 04/05/2008 4:50 PM CDT 04/06/2008 7:01 AM CDT us Riky Mejía MD POINT OF CARE TESTING Final Result Performing Organization Address [facility] Phone Number INTERFACE SYSTEM Refer to clinic/hospital department [facility] CLIA# [id number] [address] [place] [address] * IV CATHETER CULTURE (04/05/2008 4:00 PM CDT) FINAL REPORT No growth INTERFA CE SYSTEM 04/05/2008 4:0 0 PM CDT 04/05/2008 4:00 PM CDT us Riky Mejía MD MICROBIOLOGY - GENERAL MINERVA ATKINSON Final Result Performing Organization Address [facility] Phone Number INTERFACE SYSTEM [...] GLUCOSE POC 120(H) 60 - 100 mg/dL [facility] Venous blood specimen (specimen) 04/05/2008 11:06 AM CDT 04/06/2008 7:01 AM CDT Riky Mejía MD POINT OF CARE TESTING Final Result INTERFACE SYSTEM Refer to clinic/hospital department [facility] CLIA# [id number] [address] [place] [address] * (ABNORMAL) POC GLUCOSE (04/05/2008 7:26 AM CDT) GLUCOSE POC 120(H) 60 - 100 mg/dL [facility] Venous blood specimen (specimen) 04/05/2008 7:26 AM CDT 04/06/2008 7:01 AM CDT Riky Mejía MD POINT OF CARE TESTING Final Result Performing Organization Address City/State/[facility] Co de Phone Number INTERFACE SYSTEM Refer to clinic/hospital department [facility] CLIA# [id number] [address] [place] [address] * PT AND APTT (04/05/2008 3:04 AM CDT) PTT 24.1 22.5 - 36.5 Secs [facility] Comment: Therapeutic Range: Hi-level PE/DVT heparin protocol 80.1 -95.0 sec Lo-level PE/DVT heparin protocol 67.1 - 80.0 sec Cardiac Heparin Protocol 67.1 - 85.0 sec Neuro Heparin Protocol 67.1 - 80.0 sec As of 09/25/2007 note change in APTT Normal Range. PROTIME 14.8 12.8 - 15.8 Secs [facility] Comment:As of 2007 not e change in normal range. INR 1.0 [facility] Comment: Expected Values for INR: DVT/PE Goal INR 2.5; range 2.0 - 3.0 Valve Replacement Tissue Goal INR 2.5; range 2.0 - 3.0 Mechanical Goal INR 3.0; range 2.5 - 3.5 POST-AL Goal INR 2.5; range 2.0 - 3.0 or Goal 3.0; range 2.5 - 3.5 Atrial Fibrillation Goal INR 2.5; range 2.0 - 3.0 Ischemic Stroke Goal INR 2.5; range 2.0 - 3.0 For additional information see Guidelines for Anticoagulation available from the pharmacy [facility] [phone] Blood specimen (specimen) 04/05/2008 3:04 AM CDT 04/05/2008 3:08 AM CDT Riky Mejía MD HEMATOLOGY ORDERABLES Edite d Performing Organization Address [facility] Phone Number INTERFACE SYSTEM Refer to clinic/hospital department [facility] CLIA# [id number] [address] [place] [address] * MAGNESIUM LEVEL (04/05/2008 3:04 AM CDT) MAGNESIUM 2.1 1.7 - 2.4 mg/dL [facility] Blood specimen (specimen) 04/05/2008 3:04 AM CDT 04/05/2008 3:08 AM CDT Riky Mejía MD CHEMISTRY ORDERABLES Final Result Performing Organization Address [facility] Phone Number INTERFACE SYSTEM Refer to clinic/hospital department [facility] CLIA# [id number] [address] [place] [address] * (ABNORMAL) PHOSPHORUS (04/05/2008 3:04 AM CDT) PHOSPHORUS 1.7(L) 2.5 - 4.6 mg/dL [facility] Blood specimen (specimen) 04/05/2008 3:04 AM CDT 04/05/2008 3:08 AM CDT Riky Mejía MD CHEMISTRY ORDERABLES Final Result Performing Organization Address [facility] Phone Number INTERFACE SYSTEM Refer to clinic/hospital department [facility] CLIA# [id number] [address] [place] [address] * (ABNORMAL) BASIC METABOLIC PANEL (04/05/2008 3:04 AM CDT) CO2 30 22 - 32 mmol/l [facility] OSMOLALITY, CALCULATED 307(H) 275 - 295 mOsm/Kg [facility] POTASSIUM 3.9 3.5 - 5.0 mEq/L [facility] CREATININE 0.7 0.7 - 1.2 mg/dL [facility] CALCIUM 8.2(L) 8.4 - 10.5 mg/dL [facility] GLUCOSE 126(H) 70 - 110 mg/dL [facility] CHLORIDE 112(H) 95 - 110 mEq/L [facility] SODIUM 146(H) 136 - 145 mEq/L [facility] ANION GAP 8(L) 9 - 20 mEq/L [facility] BUN 32(H) 7 - 17 mg/dL [facility] Blood specimen (specimen) 04/05/2008 3:04 AM CDT 04/05/2008 3:08 AM CDT us Riky Mejía MD CHEMISTRY ORDERABLES Final Result Performing Organization Address City/State/[facility] Co de Phone Number INTERFACE SYSTEM Refer to clinic/hospital department [facility] CLIA# [id number] [address] [place] [address] * (ABNORMAL) CBC WITH DIFFERENTIAL (04/05/2008 3:04 AM CDT) EOSINOPHIL ABSOLUTE 0.2 0.0 - 0.7 K/ul [facility] EOSINOPHILS 2.2 0.0 - 7.0 % [facility] PERIPHERAL BLOOD SMEAR REVIEW Automated Diff [facility] RBC 3.51(L) 4.20 - 5.40 Mil/ul [facility] MCHC 33.2 30.0 - 35.0 g/dL [facility] LYMPHOCYTE ABSOLUTE 1.1(L) 1.2 - 4.0 K/ul [facility] LYMPHOCYTES 9.6(L) 24.0 - 44.0 % [facility] MCV 88.3 84.0 - 103.0 Fl [facility] BASOPHILS 0.1 0.0 - 1.0 % [facility] MPV 11.0 8.9 - 12.8 Fl [facility] BASOPHILS ABSOLUTE 0.0 0.0 - 0.2 K/ul [facility] HEMOGLOBIN 10.3(L) 12.0 - 16.0 g/dL [facility] MONOCYTES 8.4 2.0 - 10.0 % [facility] RDW 17.1(H) 11.0 - 14.5 % [facility] MONOCYTE ABSOLUTE 0.9(H) 0.1 - 0.6 K/ul [facility] WBC 10.9 4.5 - 11.0 K/ul [facility] NEUTROPHILS 79.7(H) 42.2 - 75.2 % [facility] MCH 29.3 27.0 - 34.0 pg [facility] NEUTROPHIL ABSOLUTE 8.7(H) 2.0 - 8.0 K/ul [facility] HEMATOCRIT 31.0(L) 36.0 - 46.0 % [facility] PLATELETS 91(L) 140 - 440 K/ul [facility] Blood specimen (specimen) 04/05/2008 3:04 AM CDT 04/05/2008 3:08 AM CDT Riky Mejía MD HEMATOLOGY ORDERABLES Final Result Performing Organization Address City/State/[facility] Co de Phone Number INTERFACE SYSTEM Refer to clinic/hospital department [facility] CLIA# [id number] [address] [place] [id number] * (ABNORMAL) RENAL FUNCTION PANEL (04/04/2008 5:04 PM CDT) ANION GAP 8(L) 9 - 20 mEq/L [facility] PHOSPHORUS 1.9(L) 2.5 - 4.6 mg/dL [facility] ALBUMIN 2.9(L) 3.5 - 5.0 g/dL [facility] CHLORIDE 117(H) 95 - 110 mEq/L [facility] CREATININE 1.2 0.7 - 1.2 mg/dL [facility] SODIUM 147(H) 136 - 145 mEq/L [facility] GLUCOSE 124(H) 70 - 110 mg/dL [facility] CO2 26 22 - 32 mmol/l [facility] CALCIUM 7.5(L) 8.4 - 10.5 mg/dL [facility] POTASSIUM 3.5 3.5 - 5.0 mEq/L [facility] OSMOLALITY, CALCULATED 309(H) 275 - 295 mOsm/Kg [facility] BUN 34(H) 7 - 17 mg/dL [facility] Blood specimen (specimen) 04/04/2008 5:04 PM CDT 04/04/2008 5:06 PM CDT us Riky Mejía MD CHEMISTRY ORDERABLES Edited INTERFACE SYSTEM Refer to clinic/hospital department [facility] CLIA# [id number] [address] [place] [id number] * (ABNORMAL) CBC WITH DIFFERENTIAL (04/04/2008 5:04 PM CDT) HEMOGLOBIN 9.6(L) 12.0 - 16.0 g/dL [facility] RDW 16.8(H) 11.0 - 14.5 % [facility] MONOCYTE ABSOLUTE 0.9(H) 0.1 - 0.6 K/ul [facility] MONOCYTES 10.0 2.0 - 10.0 % [facility] WBC 9.4 4.5 - 11.0 K/ul [facility] MCH 29.0 27.0 - 34.0 pg [facility] NEUTROPHIL ABSOLUTE 7.3 2.0 - 8.0 K/ul [facility] NEUTROPHILS 77.7(H) 42.2 - 75.2 % [facility] HEMATOCRIT 28.9(L) 36.0 - 46.0 % [facility] EOSINOPHILS 1.1 0.0 - 7.0 % [facility] PLATELETS 83(L) 140 - 440 K/ul [facility] PERIPHERAL BLOOD SMEAR REVIEW Automated Diff [facility] EOSINOPHIL ABSOLUTE 0.1 0.0 - 0.7 K/ul [facility] RBC 3.31(L) 4.20 - 5.40 Mil/ul [facility] LYMPHOCYTES 11.1(L) 24.0 - 44.0 % [facility] MCHC 33.2 30.0 - 35.0 g/dL [facility] LYMPHOCYTE ABSOLUTE 1.0(L) 1.2 - 4.0 K/ul [facility] MCV 87.3 84.0 - 103.0 Fl [facility] MPV 11.6 8.9 - 12.8 Fl [facility] BASOPHILS ABSOLUTE 0.0 0.0 - 0.2 K/ul [facility] BASOPHILS 0.1 0.0 - 1.0 % [facility] Blood specimen (specimen) 04/04/2008 5:04 PM CDT 04/04/2008 5:06 PM CDT us Riky Mejía MD HEMATOLOGY ORDERABLES Final Result Performing Organization Address City/State/[facility] Co de Phone Number INTERFACE SYSTEM Refer to clinic/hospital department [facility] CLIA# [id number] [facility] [place] [address] * (ABNORMAL) POC ISTAT EG 7+ (04/04/2008 9:15 AM CDT) SODIUM 145 138 - 146 mEq/L [facility] BASE EXCESS 0 -2 - 3 mmol/l [facility] PH 7.39 7.35 - 7.45 Unit [facility] O2 SATURATION 94(L) 95 - 98 % [facility] PO2 TEMP CORRECT 70(L) 80 - 105 mmHg [facility] PCO2 TEMP CORRECT 42 35 - 45 mmHg [facility] HEMOGLOBIN POC 8.8 +/-3 g/dL 12.0 - 16.0 g/dL [facility] POTASSIUM 3.2(L) 3.5 - 4.9 mEq/L [facility] PH TEMP CORRECT 7.39 7.35 - 7.45 Unit [facility] HCO3 (CALC) POC 25.0 22.0 - 26.0 mmol/l [facility] TCO2 (CALC) POC 26 23 - 27 mmol/l [facility] SPECIMEN TYPE Arterial [facility] Comment: Test Performed By [id number] Pulse OX: 94 Hemoglobin calculated from Hematocrit result PO2 70(L) 80 - 105 mmHg [facility] CALCIUM IONIZED 1.12 1.12 - 1.32 mmol/l [facility] HEMATOCRIT ABG 26(L) 38 - 51 % [facility] PCO2 POC 42 35 - 45 mmHg [facility] Arterial blood specimen (specimen) 04/04/2008 9:15 AM CDT 04/04/2008 9:18 AM CDT us Riky Mejía MD POINT OF CARE TESTING COM F inal Result Performing Organization Address [facility] de Phone Number INTERFACE SYSTEM Refer to clinic/hospital department [facility] CLIA# [id number] [address] [place] [address] * PTT (04/04/2008 4:19 AM CDT) PTT 26.4 22.5 - 36.5 Secs [facility] Comment: Therapeutic Range: Hi-level PE/DVT heparin protocol 80.1 -95.0 sec Lo-level PE/DVT heparin protocol 67.1 - 80.0 sec Cardiac Heparin Protocol 67.1 - 85.0 sec Neuro Heparin Protocol 67.1 - 80.0 sec As of 09/25/2007 note change in APTT Normal Range. Blood specimen (specimen) 04/04/2008 4:19 AM CDT 04/04/2008 4:23 AM CDT Riky Mejía MD HEMATOLOGY ORDERABLES Final Result Performing Organization Address [facility] Phone Number INTERFACE SYSTEM Refer to clinic/hospital department [facility] CLIA# [id number] [address] [place] [address] * PROTIME-INR (04/04/2008 4:19 AM CDT) PROTIME 15.2 12.8 - 15.8 Secs [facility] Comment:As of 2007 not e change in normal range. INR 1.1 [facility] Comment: Expected Values for INR: DVT/PE Goal INR 2.5; range 2.0 - 3.0 Valve Replacement Tissue Goal INR 2.5; range 2.0 - 3.0 Mechanical Goal INR 3.0; range 2.5 - 3.5 POST-AL Goal INR 2.5; range 2.0 - 3.0 or Goal 3.0; range 2.5 - 3.5 Atrial Fibrillation Goal INR 2.5; range 2.0 - 3.0 Ischemic Stroke Goal INR 2.5; range 2.0 - 3.0 For additional information see Guidelines for Anticoagulation available from the pharmacy [facility] [phone] Blood specimen (specimen) 04/04/2008 4:19 AM CDT 04/04/2008 4:23 AM CDT Riky Mejía MD HEMATOLOGY ORDERABLES Final Result Performing Organization Address [facility] Phone Number INTERFACE SYSTEM Refer to clinic/hospital department [facility] CLIA# [id number] [facility] [place] [address] * (ABNORMAL) PHOSPHORUS (04/04/2008 4:19 AM CDT) PHOSPHORUS 1.9(L) 2.5 - 4.6 mg/dL [facility] Blood specimen (specimen) 04/04/2008 4:19 AM CDT 04/04/2008 4:23 AM CDT Riky Mejía MD CHEMISTRY ORDERABLES Final Result Performing Organization Address [facility] de Phone Number INTERFACE SYSTEM Refer to clinic/hospital department [facility] CLIA# [id number] [address] [place] [address] * MAGNESIUM LEVEL (04/04/2008 4:19 AM CDT) [facility] MAGNESIUM 1.8 1.7 - 2.4 mg/dL [facility] Blood specimen (specimen) 04/04/2008 4:19 AM CDT 04/04/2008 4:23 AM CDT Riky Mejía MD CHEMISTRY ORDERABLES Final Result Performing Organization Address [facility] de Phone Number INTERFACE SYSTEM Refer to clinic/hospital department [facility] CLIA# [id number] [address] [place] [address] * (ABNORMAL) COMPREHENSIVE METABOLIC PANEL (04/04/2008 4:19 AM CDT) [facility] ALBUMIN/GLOBULIN RATIO 1.4 1.0 - 2.3 [facility] POTASSIUM 3.3(L) 3.5 - 5.0 mEq/L [facility] ANION GAP 11 9 - 20 mEq/L [facility] ALBUMIN 3.0(L) 3.5 - 5.0 g/dL [facility] CREATININE 2.1(H) 0.7 - 1.2 mg/dL [facility] ALT 20 4 - 36 IU/L [facility] CALCIUM 8.3(L) 8.4 - 10.5 mg/dL [facility] GLUCOSE 124(H) 70 - 110 mg/dL [facility] ALKALINE PHOSPHATASE 42 25 - 100 U/L [facility] CHLORIDE 111(H) 95 - 110 mEq/L [facility] OSMOLALITY, CALCULATED 310(H) 275 - 295 mOsm/Kg [facility] GLOBULIN (CALC) 2.2(L) 2.4 - 3.9 g/dL [facility] TOTAL PROTEIN 5.2(L) 6.3 - 8.2 g/dL [facility] SODIUM 146(H) 136 - 145 mEq/L [facility] BILIRUBIN TOTAL 0.9 0.3 - 1.2 mg/dL [facility] CO2 27 22 - 32 mmol/l [facility] BUN 42(H) 7 - 17 mg/dL [facility] AST 104(H) 8 - 33 U/L [facility] Blood specimen (specimen) 04/04/2008 4:19 AM CDT 04/04/2008 4:23 AM CDT Riky Mejía MD CHEMISTRY ORDERABLES Final Result INTERFACE SYSTEM Refer to clinic/hospital department [facility] CLIA# [id number] [address] [place] [address] * (ABNORMAL) CBC WITH DIFFERENTIAL (04/04/2008 4:19 AM CDT) HEMATOCRIT 28.7(L) 36.0 - 46.0 % [facility] EOSINOPHILS 0.2 0.0 - 7.0 % [facility] PLATELETS 83(L) 140 - 440 K/ul [facility] PERIPHERAL BLOOD SMEAR REVIEW Automated Diff [facility] EOSINOPHIL ABSOLUTE 0.0 0.0 - 0.7 K/ul [facility] RBC 3.33(L) 4.20 - 5.40 Mil/ul [facility] LYMPHOCYTES 12.1(L) 24.0 - 44.0 % [facility] MCHC 33.4 30.0 - 35.0 g/dL [facility] LYMPHOCYTE ABSOLUTE 1.1(L) 1.2 - 4.0 K/ul [facility] MCV 86.2 84.0 - 103.0 Fl [facility] MPV 11.5 8.9 - 12.8 Fl [facility] BASOPHILS ABSOLUTE 0.0 0.0 - 0.2 K/ul [facility] BASOPHILS 0.2 0.0 - 1.0 % [facility] HEMOGLOBIN 9.6(L) 12.0 - 16.0 g/dL [facility] RDW 16.1(H) 11.0 - 14.5 % [facility] MONOCYTE ABSOLUTE 1.0(H) 0.1 - 0.6 K/ul [facility] MONOCYTES 10.5(H) 2.0 - 10.0 % [facility] WBC 9.0 4.5 - 11.0 K/ul [facility] MCH 28.8 27.0 - 34.0 pg [facility] NEUTROPHIL ABSOLUTE 6.9 2.0 - 8.0 K/ul [facility] NEUTROPHILS 77.0(H) 42.2 - 75.2 % [facility] Blood specimen (specimen) 04/04/2008 4:19 AM CDT 04/04/2008 4:23 AM CDT us Riky Mejía MD HEMATOLOGY ORDERABLES Final Result INTERFACE SYSTEM Refer to clinic/hospital department [facility] CLIA# [id number] [address] [place] [address] * (ABNORMAL) POC ISTAT EG 7+ (04/04/2008 4:07 AM CDT) POTASSIUM 3.1(L) 3.5 - 4.9 mEq/L [facility] PH TEMP CORRECT 7.45 7.35 - 7.45 Unit [facility] HCO3 (CALC) POC 24.5 22.0 - 26.0 mmol/l [facility] TCO2 (CALC) POC 26 23 - 27 mmol/l [facility] FIO2 50 [facility] PO2 138(H) 80 - 105 mmHg [facility] CALCIUM IONIZED 1.10(L) 1.12 - 1.32 mmol/l [facility] HEMATOCRIT ABG 25(L) 38 - 51 % [facility] PCO2 POC 35 35 - 45 mmHg [facility] SODIUM 143 138 - 146 mEq/L [facility] BASE EXCESS 1 -2 - 3 mmol/l [facility] PH 7.45 7.35 - 7.45 Unit [facility] O2 SATURATION 99(H) 95 - 98 % [facility] PO2 TEMP CORRECT 138(H) 80 - 105 mmHg [facility] SPECIMEN TYPE Arterial [facility] Comment: Test Performed By [id number] Tidal volume: 500 PEEP: 10 Rate: 14 Pulse OX: 100 Hemoglobin calculated from Hematocrit result PCO2 TEMP CORRECT 35 35 - 45 mmHg [facility] HEMOGLOBIN POC 8.5 +/-3 g/dL 12.0 - 16.0 g/dL [facility] Arterial blood specimen (specimen) 04/04/2008 4:07 AM CDT 04/04/2008 5:13 AM CDT us Riky Mejía MD POINT OF CARE TESTING COM F inal Result INTERFACE SYSTEM Refer to clinic/hospital department [facility] CLIA# [id number] [address] [place] [address] * MRSA CULTURE (04/03/2008 9:03 PM CDT) FINAL REPORT Culture screen for MRSA negative INTERFACE SYSTEM 04/03/2008 9:03 PM CDT 04/03/2008 9:03 PM CDT us Riky Mejía MD MICROBIOLOGY - [facility]AL [place] [facility] Final Result Performing Organization Address City/[facility]/ZIP Co de Phone Number INTERFACE SYSTEM Refer [...] CALCIUM IONIZED 1.00(L) 1.12 - 1.32 mmol/l [facility] HEMATOCRIT ABG 24(L) 38 - 51 % [facility] PCO2 POC 36 35 - 45 mmHg [facility] SODIUM 144 138 - 146 mEq/L [facility] BASE EXCESS 0 -2 - 3 mmol/l [facility] PH 7.44 7.35 - 7.45 Unit [facility] O2 SATURATION 98 95 - 98 % [facility] PO2 TEMP CORRECT 101 80 - 105 mmHg [facility] SPECIMEN TYPE Arterial [facility] Comment: Test Performed By [id number] Tidal volume: 500 PEEP: 10 Rate: 16 Pulse OX: 96 Hemoglobin calculated from Hematocrit result PCO2 TEMP CORRECT 36 35 - 45 mmHg [facility] HEMOGLOBIN POC 8.2 +/-3 g/dL 12.0 - 16.0 g/dL [facility] POTASSIUM 3.2(L) 3.5 - 4.9 mEq/L [facility] PH TEMP CORRECT 7.44 7.35 - 7.45 Unit [facility] HCO3 (CALC) POC 23.9 22.0 - 26.0 mmol/l [facility] TCO2 (CALC) POC 25 23 - 27 mmol/l [facility] FIO2 60 [facility] PO2 101 80 - 105 mmHg [facility] Arterial blood specimen (specimen) 04/03/2008 8:35 PM CDT 04/03/2008 8:48 PM CDT Riky Mejía MD POINT OF CARE TESTING COM F inal Result Performing Organization Address [facility] de Phone Number INTERFACE SYSTEM Refer to clinic/hospital department [facility] CLIA# [id number] [address] [place] [address] * TYPE AND CROSSMATCH (04/03/2008 8:13 PM CDT) [facility] BLOOD BANK PRODUCT INTERFACE SYSTEM Blood specimen (specimen) 04/03/2008 8:13 PM CDT 04/03/2008 8:17 PM CDT Riky Mejía MD BLOOD BANK ORDERABLES Edite d Performing Organization Address [facility] Phone Number INTERFACE SYSTEM Refer to clinic/hospital department * (ABNORMAL) CBC WITH DIFFERENTIAL (04/03/2008 8:13 PM CDT) Pathologist [facility] HEMATOCRIT 26.9(L) 36.0 - 46.0 % [facility] PLATELETS 102(L) 140 - 440 K/ul [facility] EOSINOPHIL ABSOLUTE 0.0 0.0 - 0.7 K/ul [facility] EOSINOPHILS 0.1 0.0 - 7.0 % [facility] RBC 3.13(L) 4.20 - 5.40 Mil/ul [facility] MCHC 33.8 30.0 - 35.0 g/dL [facility] LYMPHOCYTE ABSOLUTE 1.1(L) 1.2 - 4.0 K/ul [facility] LYMPHOCYTES 12.2(L) 24.0 - 44.0 % [facility] MCV 85.9 84.0 - 103.0 Fl [facility] BASOPHILS 0.1 0.0 - 1.0 % [facility] MPV 11.7 8.9 - 12.8 Fl [facility] BASOPHILS ABSOLUTE 0.0 0.0 - 0.2 K/ul [facility] HEMOGLOBIN 9.1(L) 12.0 - 16.0 g/dL [facility] MONOCYTES 11.9(H) 2.0 - 10.0 % [facility] RDW 16.2(H) 11.0 - 14.5 % [facility] MONOCYTE ABSOLUTE 1.1(H) 0.1 - 0.6 K/ul [facility] WBC 9.0 4.5 - 11.0 K/ul [facility] NEUTROPHILS 75.7(H) 42.2 - 75.2 % [facility] MCH 29.1 27.0 - 34.0 pg [facility] NEUTROPHIL ABSOLUTE 6.8 2.0 - 8.0 K/ul [facility] Blood specimen (specimen) 04/03/2008 8:13 PM CDT 04/03/2008 8:17 PM CDT us Riky Mejía MD HEMATOLOGY ORDERABLES Final Result INTERFACE SYSTEM Refer to clinic/hospital department [facility] CLIA# [id number] [address] [place] [address] * PTT (04/03/2008 8:13 PM CDT) PTT 28.1 22.5 - 36.5 Secs [facility] Comment: Therapeutic Range: Hi-level PE/DVT heparin protocol 80.1 -95.0 sec Lo-level PE/DVT heparin protocol 67.1 - 80.0 sec Cardiac Heparin Protocol 67.1 - 85.0 sec Neuro Heparin Protocol 67.1 - 80.0 sec As of 09/25/2007 note change in APTT Normal Range. Blood specimen (specimen) 04/03/2008 8:13 PM CDT 04/03/2008 8:17 PM CDT Riky Mejía MD HEMATOLOGY ORDERABLES Final Result Performing Organization Address [facility] Phone Number INTERFACE SYSTEM Refer to clinic/hospital department [facility] CLIA# [id number] [address] [place] [address] * (ABNORMAL) PROTIME-INR (04/03/2008 8:13 PM CDT) INR 1.2 [facility] Comment: Expected Values for INR: DVT/PE Goal INR 2.5; range 2.0 - 3.0 Valve Replacement Tissue Goal INR 2.5; range 2.0 - 3.0 Mechanical Goal INR 3.0; range 2.5 - 3.5 POST-AL Goal INR 2.5; range 2.0 - 3.0 or Goal 3.0; range 2.5 - 3.5 Atrial Fibrillation Goal INR 2.5; range 2.0 - 3.0 Ischemic Stroke Goal INR 2.5; range 2.0 - 3.0 For additional information see Guidelines for Anticoagulation available from the pharmacy [facility] [phone] PROTIME 16.3(H) 12.8 - 15.8 Secs [facility] Comment:As of 2007 not e change in normal range. Blood specimen (specimen) 04/03/2008 8:13 PM CDT 04/03/2008 8:17 PM CDT Riky Mejía MD HEMATOLOGY ORDERABLES Final Result Performing Organization Address [facility] de Phone Number INTERFACE SYSTEM Refer to clinic/hospital department [facility] CLIA# [id number] [address] [place] [address] * ANTIBODY SCREEN (04/03/2008 8:13 PM CDT) [facility] ANTIBODY SCREEN Negative [facility] Blood specimen (specimen) 04/03/2008 8:13 PM CDT 04/03/2008 8:17 PM CDT us Riky Mejía MD BLOOD BANK ORDERABLES Final Result Performing Organization Address [facility] de Phone Number INTERFACE SYSTEM Refer to clinic/hospital department [facility] CLIA# [id number] [facility] [place] [address] * ABORH TYPING (04/03/2008 8:13 PM CDT) [facility] ABO/RH TYPE O Positive [facility] Blood specimen (specimen) 04/03/2008 8:13 PM CDT 04/03/2008 8:17 PM CDT us Riky Mejía MD BLOOD BANK ORDERABLES Final Result Performing Organization Address [facility] de Phone Number INTERFACE SYSTEM Refer to clinic/hospital department [facility] CLIA# [id number] [facility] [place] [address] * (ABNORMAL) COMPREHENSIVE METABOLIC PANEL (04/03/2008 8:13 PM CDT) [facility] GLUCOSE 140(H) 70 - 110 mg/dL [facility] ALKALINE PHOSPHATASE 40 25 - 100 U/L [facility] CHLORIDE 112(H) 95 - 110 mEq/L [facility] AST 97(H) 8 - 33 U/L [facility] GLOBULIN (CALC) 1.9(L) 2.4 - 3.9 g/dL [facility] TOTAL PROTEIN 4.9(L) 6.3 - 8.2 g/dL [facility] SODIUM 146(H) 136 - 145 mEq/L [facility] ANION GAP 11 9 - 20 mEq/L [facility] CO2 26 22 - 32 mmol/l [facility] BUN 47(H) 7 - 17 mg/dL [facility] ALT 19 4 - 36 IU/L [facility] ALBUMIN/GLOBULIN RATIO 1.6 1.0 - 2.3 [facility] POTASSIUM 3.2(L) 3.5 - 5.0 mEq/L [facility] OSMOLALITY, CALCULATED 312(H) 275 - 295 mOsm/Kg [facility] ALBUMIN 3.0(L) 3.5 - 5.0 g/dL [facility] CREATININE 2.9(H) 0.7 - 1.2 mg/dL [facility] BILIRUBIN TOTAL 0.6 0.3 - 1.2 mg/dL [facility] CALCIUM 7.6(L) 8.4 - 10.5 mg/dL [facility] Blood specimen (specimen) 04/03/2008 8:13 PM CDT 04/03/2008 8:17 PM CDT Riky Mejía MD CHEMISTRY ORDERABLES Edited INTERFACE SYSTEM Refer to clinic/hospital department [facility] CLIA# [id number] [address] [place] [address] documented in this encounter Visit Diagnoses Not on filedocumented in this encounter Additional Health Concerns Infection Onset Date Last Indicated Resolved Time MRSA Comment:Kapil 10/26/15 10/27/2015 10/27/2015 documented as of this encounter Care Teams Industrial Coffee Grinder Relationship Specialty Start Date End Date Jose Bowers MD [address] [place] [address] PCP - General 12/31/05 documented as of this encounter
--- NOTE | 2025-03-09 08:05 | ECG_ITS ---
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 Measurements Intervals [place] Rate: 84 P: 15 NV: 140 QRS: 1 QRSD: 95 T: 8 QT: 363 QTc: 430 Interpretive Statements SINUS RHYTHM LOW QRS VOLTAGE IN PRECORDIAL LEADS [QRS DEFLECTION < 1.0 mV IN CHEST LEADS] MODERATE VOLTAGE CRITERIA FOR LVH, CONSIDER NORMAL VARIANT [MEETS CRITERIA IN ONE OF: R(aVL), S(V1), R(V5), R(V5/V6)+S(V1)] Compared to ECG 03/04/2025 16:10:14 Low QRS voltage now present Electronically Signed On 03-09-2025 21:37:47 CDT by Pipo Moser M.D. [email or web address]
--- NOTE | 2025-03-09 08:17 | W.ED.WEAKNES ---
HPI - Weakness General: Chief complaint: Weakness Stated complaint: Weakness x few days Source: patient and EMS Mode of arrival: EMS Limitations: no limitations History of Present Illness: 55-year-old female has a history of paraplegia has a suprapubic catheter was recently diagnosed with a UTI. Patient lives at home was taken care of by family and stated over the last 2 weeks she has been having some increasing weakness along with some slight confusion. Patient states she has been hallucinating a little as well. She states she is feels generally weak she is able answer all my questions appropriately here no focal deficits ANO x 4 denies any fevers Associated symptoms: Denies chest pain, chills, fever(s), headache(s), nausea or vomiting Related Data Home Medications ?Medication ?Instructions ?Recorded ?Confirmed gabapentin 600 mg tablet 600 mg PO BEDTIME 04/12/20 03/04/25 venlafaxine 150 mg 150 mg PO BEDTIME 04/12/20 03/04/25 capsule,extended release 24 hr baclofen 20 mg tablet 20 mg PO BEDTIME 02/26/23 03/04/25 trazodone 50 mg tablet 25 mg PO BEDTIME 09/24/23 03/04/25 diphenoxylate-atropine 2.5 2 tab PO QID 02/04/25 03/04/25 mg-0.025 mg tablet loperamide 2 mg capsule 4 mg PO QID PRN Diarrhea 02/04/25 03/04/25 omeprazole 40 mg capsule,delayed 40 mg PO DAILY 02/04/25 03/04/25 release sulfamethoxazole 400 1 tab PO DAILY 02/04/25 03/04/25 mg-trimethoprim 80 mg tablet ondansetron 8 mg disintegrating 8 mg PO TID PRN Nausea And Vomiting 02/23/25 03/04/25 tablet apixaban 5 mg tablet (Eliquis) 5 mg PO BID 03/04/25 03/04/25 pantoprazole 40 mg tablet,delayed 40 mg PO BID 03/04/25 03/04/25 release Previous Rx's ?Medication ?Instructions ?Recorded prothrombin time/INR test metr #30 ea 08/24/24 cefdinir 300 mg capsule 300 mg PO BID 7 days #14 caps 03/04/25 Allergies Allergy/AdvReac Type Severity Reaction Status Date / Time levofloxacin (From Kyoger) Allergy Unknown Unknown Verified 02/22/25 13:52 azithromycin Allergy Unknown Verified 02/22/25 13:52 Penicillins Allergy Unknown Verified 02/22/25 13:52 tramadol (From Ultram) Allergy Unknown Verified 02/22/25 13:52 vancomycin Allergy Unknown Verified 02/22/25 13:52 amoxicillin AdvReac Unknown ADR-Seizure Verified 02/22/25 13:52 Review of Systems Const: Reports: fatigue; Denies: fever(s), chills, body aches or change in appetite ENMT: Denies: throat pain or dental pain Card: Denies: chest pain Resp: Denies: dyspnea GI: Denies: abdominal pain, nausea, vomiting or diarrhea Musc: Denies: neck pain or back pain Skin/Breast: Denies: rash Neuro: Denies: headache(s) PFSH ED PFSH: Medical History (Updated 03/09/25 @ 10:08 by Jenn Frey MD) Shock Groin hematoma BMI 50.0-59.9, adult Chronic anticoagulation History of angiography 2015 abdominal angiography and lower extremity angiography - normal abdominal aorta, pelvic vessels normal, all lower extremity vessels unremarkable, 3 vessel runoff below both knees History of cardiovascular stress test 07/2024 abnormalities on myocardial perfusion scanning History of sleep study 05/2017 - cpap auto-titrating 15-19 Wound of sacral region goes to wound care clinic Abscess of sacrum Parastomal hernia Ventral incisional hernia GERD (gastroesophageal reflux disease) Depression Fracture of fifth toe, right, closed History of sleep apnea sleep study in 2017 recommended auto-titrating cpap 15-[address] Complications of surgery for ovarian cyst around 2004 resulting in bowel injury Chronic venous insufficiency of lower extremity PVD (peripheral vascular disease) History of DVT (deep vein thrombosis) (2004) and pulmonary embolism 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 Chronic osteomyelitis Neurogenic bladder Chronic cystitis Surgical History History of carpal tunnel release History of abdominal surgery (2007) excision of pelvic cysts complicated by bowel perforation, had multiple procedures including colostomy History of inferior vena caval filter placement (2004) still in place in 08/2024 History of incision and drainage (04/2019) sacral wound History of back surgery (2004) for spinal abscess x 2 History of hysterectomy (2003) S/P cholecystectomy S/P section Suprapubic catheter (~2004) following urology in [place] Family History Family/Other Diabetes Cancer CAD (coronary artery disease) Mother , at age 74 Sepsis Cancer melanoma Diabetes Father Heart disease Other Dementia Diabetes mellitus type 1 Hypertension Stroke Social History Smoking and tobacco/nicotine status: never used tobacco/nicotine Alcohol intake: never Substance/Drug Use: never Additional social history: daughter performs dressing changes twice per day, she and other family provide assistance as needed, wheelchair dependent, able to use transfer board Caregiver/support person: Yes Lives independently: Yes Marital status: Current occupational status: disabled Physical Exam Const: COMMON NORMALS: patient oriented x3 HENMT: COMMON NORMALS: normocephalic and atraumatic HEAD & SCALP: normocephalic and atraumatic Eye: COMMON NORMALS: Equal, round and reactive pupils present and EOMs intact bilaterally PUPIL: Yes Equal, round and reactive pupils present Neck/C-Spine: COMMON NORMALS: full ROM and supple Chest: COMMONS NORMALS: normal inspection of the chest and normal palpation of entire chest wall Resp: COMMON NORMALS: normal respiratory effort, No retractions, No use of accessory muscles and clear to auscultation bilaterally AUSCULTATION: clear to auscultation bilaterally Cardio: COMMON NORMALS: regular rate, regular rhythm and No murmurs present (Cardio) RATE: regular rate RHYTHM: regular rhythm GI: COMMON NORMALS: Normal to inspection, nondistended, normoactive bowel sounds present, Soft to palpation, non-tender and no masses PALPATION: Yes Soft to palpation Extremity: COMMON NORMALS: normal to inspection and full ROM Neuro: COMMON NORMALS: patient oriented x3, moves all extremities and no focal motor deficits Psych: COMMON NORMALS: mental status grossly normal, Normal thought process present and cooperative THOUGHT PROCESS: Normal thought process present Skin: COMMON NORMALS: no rashes or lesions noted and no wounds GENERAL SKIN EXAM: no rashes or lesions noted Course Vital Signs: Vital signs: Vital Signs Temperature 98.1 F 03/09/25 07:57 Pulse Rate 90 03/09/25 10:46 Respiratory Rate 18 03/09/25 07:57 Blood Pressure 112/60 03/09/25 10:46 Pulse Oximetry 100 03/09/25 10:46 Oxygen Delivery Me thod Room Air 03/09/25 10:46 MDM - Weakness Medical Decision Making Patient presents here with generalized weakness had some hallucination of the last 2 weeks but she has been appropriate here she has some mild dehydration no signs of sepsis she feels improved after fluids she stable for discharge we will get her neurology follow-up she is return if worsening. Medical Records I reviewed the patient's medical records. Lab Data I reviewed the patient's lab results. 03/09/25 09:11 03/09/25 09:11 Radiology Impressions Chest X-Ray 03/09/25 08:00 IMPRESSION: Unremarkable portable chest. Head CT 03/09/25 08:00 IMPRESSION: 1. No acute intracranial hemorrhage or edema. 2. Tiny bilateral lacunar infarcts in the external capsules. Mild small vessel disease. Laboratory Results WBC 5.92 10^3/uL (3.29-11.43) 03/09/25 09:11 RBC 3.02 10^6/uL (3.85-5.65) L 03/09/25 09:11 Hgb 9.10 g/dL (11.27-16.99) L 03/09/25 09:11 Hct 29.4 % (36-47) L 03/09/25 09:11 MCV 97.4 fl (85-98) 03/09/25 09:11 MCH 30.1 pg (27-33) 03/09/25 09:11 MCHC 31.0 g/dL (30-55) 03/09/25 09:11 RDW 15.9 % (12.1-15.1) H 03/09/25 09:11 Plt Count 545 10^3/cmm (157-399) H 03/09/25 09:11 MPV 11.5 fL (7.4-10.4) H 03/09/25 09:11 Neut % (Auto) 66.8 % 03/09/25 09:11 Lymph % (Auto) 20.4 % 03/09/25 09:11 [place] % (Auto) 7.4 % 03/09/25 09:11 Eos % (Auto) 2.9 % 03/09/25 09:11 Baso % (Auto) 0.3 % 03/09/25 09:11 Neut # (Auto) 3.95 10^3/uL (1.8-7.7) 03/09/25 09:11 Lymph # (Auto) 1.2 10^3/uL (0.8-4.8) 03/09/25 09:11 [place] # (Auto) 0.4 10^3/uL (0.2-0.9) 03/09/25 09:11 Eos # (Auto) 0.2 10^3/uL (0.0-0.8) 03/09/25 09:11 Baso # (Auto) 0.0 10^3/uL (0.0-0.1) 03/09/25 09:11 Nucleated RBC % (auto) 0 % 03/09/25 09:11 Nucleated RBCs # 0.0 /100WBC 03/09/25 09:11 Sodium 138 mmol/L (136-145) 03/09/25 09:11 Potassium 4.0 mmol/L (3.5-5.1) 03/09/25 09:11 Chloride 109 mmol/L (98-107) H 03/09/25 09:11 Carbon Dioxide 17 mmol/L (22-29) L 03/09/25 09:11 Anion Gap 16.0 (5-19) 03/09/25 09:11 BUN 48 mg/dL (6-20) H 03/09/25 09:11 Creatinine 0.9 mg/dL (0.5-0.9) 03/09/25 09:11 GFR Calculation 64.5 mL/min (90-130) L 03/09/25 09:11 Glucose 116 mg/dL (65-115) H 03/09/25 09:11 Calculated Osmolality 300 mOsm/kg (285-295) H 03/09/25 09:11 Calcium 8.7 mg/dL (8.5-10.5) 03/09/25 09:11 Magnesium 2.7 mg/dL (1.7-2.3) H 03/09/25 09:11 Total Bilirubin 0.3 mg/dL (0.15-1.2) 03/09/25 09:11 AST 45 U/L (0-32) H 03/09/25 09:11 ALT 74 U/L (0-33) H 03/09/25 09:11 Alkaline Phosphatase 587 U/L (35-105) H 03/09/25 09:11 Total Protein 8.1 g/dL (6.6-8.7) 03/09/25 09:11 Albumin 2.4 g/dL (3.5-5.2) L 03/09/25 09:11 Globulin 5.7 g/dL (1.3-4.6) H 03/09/25 09:11 TSH 1.43 uIU/mL (0.27-4.20) 03/09/25 09:11 All radiology interpretation(s) finalized by discharge EKG Data EKG 1: I personally reviewed and interpreted this EKG as follows: EKG interpretation date: 03/09/25 EKG interpretation time: 08:05 Interpretation: nsr hr [address] elevation qrs 95 qtc 404 Discharge Plan Discharge Patient Disposition: Home Clinical Impression: Generalized weakness, Confusion Condition: Stable Prescriptions: No Action gabapentin 600 mg tablet 600 mg PO BEDTIME venlafaxine 150 mg capsule,extended release 24hr 150 mg PO BEDTIME trazodone 50 mg tablet 25 mg PO BEDTIME (DME) prothrombin time/INR test metr Misc See Rx Instructions .Route Qty: 30 0RF Rx Instructions: As directed- INR strips loperamide 2 mg capsule 4 mg PO QID PRN (Reason: Diarrhea) sulfamethoxazole-trimethoprim 400-80 mg tablet 1 tab PO DAILY diphenoxylate-atropine 2.5-0.025 mg tablet 2 tab PO QID omeprazole 40 mg capsule,delayed release(DR/EC) 40 mg PO DAILY ondansetron 8 mg tablet,disintegrating 8 mg PO TID PRN (Reason: Nausea And Vomiting) baclofen 20 mg tablet 20 mg PO BEDTIME pantoprazole 40 mg tablet,delayed release (DR/EC) 40 mg PO BID Eliquis 5 mg tablet 5 mg PO BID cefdinir 300 mg capsule 300 mg PO BID 7 Days Qty: 14 0RF Discharge Orders: Discharge ED (Routine); Ordered 03/09/25 Ordered By: Jenn Frey Referrals: Morenita Muñiz MD [Physician, Neurology] - 4-7 days Marcus Benson MD [Primary Care Provider, Family Practice] Discharge Diet: Advance as tolerated Discharge Activity: Resume usual activity Patient Instructions: Confusion Print Language: [place] Coding Level of Care Code ED Condenser Tube Tender for Hetal Huitron
--- NOTE | 2025-03-09 08:18 | PC.NURSE ---
PT LEG BAG REPLACED IN AN ATTEMPT TO GET A CLEAN URINE SAMPLE FROM SUPRAPUBIC CATHETER.
[2025-03-09 09:00] VITALS: BP 123/45; PULSE 85; O2SAT 100
[2025-03-09 09:21] LABS: Hematocrit 29.4 % (36-47); Hemoglobin 9.10 g/dL (11.27-16.99); Mean Corpuscular HGB Conc 31.0 g/dL (30-55); Mean Corpuscular Hemoglobin 30.1 pg (27-33); Mean Corpuscular Volume 97.4 fl (85-98); Nucleated Red Blood Cells % 0 %; Platelet Count 545 10^3/cmm (157-399); Red Blood Count 3.02 10^6/uL (3.85-5.65); White Blood Count 5.92 10^3/uL (3.29-11.43)
[2025-03-09 09:52] LABS: Alanine Aminotransferase 74 U/L (0-33); Albumin Level 2.4 g/dL (3.5-5.2); Alkaline Phosphatase 587 U/L (35-105); Aspartate Amino Transferase 45 U/L (0-32); Blood Urea Nitrogen 48 mg/dL (6-20); Calcium 8.7 mg/dL (8.5-10.5); Carbon Dioxide 17 mmol/L (22-29); Chloride 109 mmol/L (98-107); Creatinine Clr Calc Pharmacy 87.7625; Globulin 5.7 g/dL (1.3-4.6); Glucose 116 mg/dL (65-115); Magnesium 2.7 mg/dL (1.7-2.3); Osmolality Calculated 300 mOsm/kg (285-295); Sodium 138 mmol/L (136-145); Thyroid Stimulating Hormone 1.43 uIU/mL (0.27-4.20); Total Protein 8.1 g/dL (6.6-8.7)
[2025-03-09 09:56] LABS: Anion Gap 16.0 (5-19); Potassium 4.0 mmol/L (3.5-5.1)
[2025-03-09 10:46] VITALS: BP 112/60; PULSE 90; O2SAT 100
[2025-03-09 11:33] VITALS: BP 136/61; PULSE 86; RESP 18; O2SAT 97
[2025-03-09 11:36] VITALS: BP 147/66; O2SAT 100
== END 2025-03-09 12:09 | disposition home or self-care (01) ==
PROVIDERS: Emergency Provider Emergency Medicine; PCP Family Medicine
DX: R53.1 Weakness (principal); R41.0 Disorientation, unspecified; Z79.01 Long term (current) use of anticoagulants
CPT/HCPCS: 36415; 70450; 71045; 80053; 83735; 84443; 85025; 93005; 99285; J7030

== ENCOUNTER → 2025-03-11 12:57 | Outpatient (BNVA) | payer OTHER, MEDICAID, SELFPAY | PROVIDERS: PCP Family Medicine; Visit Provider Thoracic Surgery (Cardiothoracic Vascular Surgery) | DX: I96 Gangrene, not elsewhere classified (principal); L98.491 Non-pressure chronic ulcer of skin of other sites limited to breakdown of skin; L89.152 Pressure ulcer of sacral region, stage 2 | CPT/HCPCS: 97597; 97598 ==

== ENCOUNTER → 2025-03-25 13:02 | Outpatient (BNVA) | payer OTHER, MEDICAID, SELFPAY | PROVIDERS: PCP Family Medicine; Visit Provider Thoracic Surgery (Cardiothoracic Vascular Surgery) | DX: I96 Gangrene, not elsewhere classified (principal); T81.31XD Disruption of external operation (surgical) wound, not elsewhere classified, subsequent encounter; Y83.8 Other surgical procedures as the cause of abnormal reaction of the patient, or of later complication, without mention of misadventure at the time of the procedure | CPT/HCPCS: 97597; A6210 ==

== ENCOUNTER 2025-04-03 15:32 | Emergency (ER) | payer OTHER, MEDICAID, SELFPAY ==
[2025-04-03] VITALS (8 sets, daily range): BP systolic 115–149; BP diastolic 63–81; PULSE 71–96; RESP 16–17; TEMP 36.7; O2SAT 96–100; BMI 43.9
--- OUTSIDE RECORDS SUMMARY | 2025-04-03 15:39 | XMS_ITS | Encounter Summary ---
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 Gender Identity Not on file Sexual [...] GLUCOSE POC 109(H) 60 - 100 mg/dL [facility] Venous blood specimen (specimen) 04/08/2008 4:10 PM CDT 04/09/2008 7:42 AM CDT Riky Mejía MD POINT OF CARE TESTING Final Result Performing Organization Address City/State/[facility] Co de Phone Number INTERFACE SYSTEM Refer to clinic/hospital department [facility] CLIA# [id number] [facility] [place] [address] * (ABNORMAL) POC GLUCOSE (04/08/2008 11:00 AM CDT) GLUCOSE POC 122(H) 60 - 100 mg/dL [facility] Venous blood specimen (specimen) 04/08/2008 11:00 AM CDT 04/09/2008 7:42 AM CDT us Riky Mejía MD POINT OF CARE TESTING Final Result Performing Organization Address [facility] de Phone Number INTERFACE SYSTEM Refer to clinic/hospital department [facility] CLIA# [id number] [address] [place] [address] * (ABNORMAL) POC GLUCOSE (04/08/2008 5:12 AM CDT) GLUCOSE POC 124(H) 60 - 100 mg/dL [facility] Venous blood specimen (specimen) 04/08/2008 5:12 AM CDT 04/08/2008 7:16 AM CDT Riky Mejía MD POINT OF CARE TESTING Final Result Performing Organization Address [facility] de Phone Number INTERFACE SYSTEM Refer to clinic/hospital department [facility] CLIA# [id number] [address] [place] [address] * (ABNORMAL) BASIC METABOLIC PANEL (04/08/2008 4:30 AM CDT) POTASSIUM 4.2 3.5 - 5.0 mEq/L [facility] OSMOLALITY, CALCULATED 284 275 - 295 mOsm/Kg [facility] CREATININE 0.5(L) 0.7 - 1.2 mg/dL [facility] CALCIUM 8.4 8.4 - 10.5 mg/dL [facility] GLUCOSE 141(H) 70 - 110 mg/dL [facility] CHLORIDE 102 95 - 110 mEq/L [facility] ANION GAP 9 9 - 20 mEq/L [facility] SODIUM 137 136 - 145 mEq/L [facility] BUN 11 7 - 17 mg/dL [facility] CO2 30 22 - 32 mmol/l [facility] Blood specimen (specimen) 04/08/2008 4:30 AM CDT 04/08/2008 4:30 AM CDT Riky Mejía MD CHEMISTRY ORDERABLES Final Result INTERFACE SYSTEM Refer to clinic/hospital department [facility] CLIA# [id number] [facility] [place] [address] * (ABNORMAL) CBC WITH DIFFERENTIAL (04/08/2008 4:30 AM CDT) MCV 90.8 84.0 - 103.0 Fl [facility] BASOPHILS 0.2 0.0 - 1.0 % [facility] MPV 10.7 8.9 - 12.8 Fl [facility] BASOPHILS ABSOLUTE 0.0 0.0 - 0.2 K/ul [facility] HEMOGLOBIN 10.6(L) 12.0 - 16.0 g/dL [facility] MONOCYTES 8.0 2.0 - 10.0 % [facility] RDW 16.8(H) 11.0 - 14.5 % [facility] MONOCYTE ABSOLUTE 1.0(H) 0.1 - 0.6 K/ul [facility] WBC 12.7(H) 4.5 - 11.0 K/ul [facility] NEUTROPHILS 86.4(H) 42.2 - 75.2 % [facility] MCH 29.4 27.0 - 34.0 pg [facility] NEUTROPHIL ABSOLUTE 10.9(H) 2.0 - 8.0 K/ul [facility] HEMATOCRIT 32.7(L) 36.0 - 46.0 % [facility] PLATELETS 149 140 - 440 K/ul [facility] EOSINOPHIL ABSOLUTE 0.1 0.0 - 0.7 K/ul [facility] EOSINOPHILS 0.7 0.0 - 7.0 % [facility] RBC 3.60(L) 4.20 - 5.40 Mil/ul [facility] MCHC 32.4 30.0 - 35.0 g/dL [facility] LYMPHOCYTE ABSOLUTE 0.6(L) 1.2 - 4.0 K/ul [facility] LYMPHOCYTES 4.7(L) 24.0 - 44.0 % [facility] Blood specimen (specimen) 04/08/2008 4:30 AM CDT 04/08/2008 4:30 AM CDT us Riky Mejía MD HEMATOLOGY ORDERABLES Final Result Performing Organization Address City/[facility] de Phone Number INTERFACE SYSTEM Refer to clinic/hospital department [facility] CLIA# [id number] [facility] [place] [address] * BLOOD CULTURE (04/07/2008 9:56 PM CDT) FINAL REPORT No growth INTERFA CE SYSTEM Blood specimen (specimen) 04/07/2008 9:56 PM CDT 04/07/2008 9:56 PM CDT us Riky Mejía MD MICROBIOLOGY - GENERAL MINERVA ATKINSON Final Result Performing Organization Address [facility] de Phone Number INTERFACE SYSTEM Refer to clinic/hospital department * BLOOD CULTURE (04/07/2008 9:56 PM CDT) FINAL REPORT No growth INTERFA CE SYSTEM Blood specimen (specimen) 04/07/2008 9:56 PM CDT 04/07/2008 9:56 PM CDT us Riky Mejía MD MICROBIOLOGY - GENERAL MINERVA ATKINSON Final Result Performing Organization Address [facility] de Phone Number INTERFACE SYSTEM Refer to clinic/hospital department * (ABNORMAL) POC GLUCOSE (04/07/2008 8:36 PM CDT) GLUCOSE POC 159(H) 60 - 100 mg/dL [facility] Venous blood specimen (specimen) 04/07/2008 8:36 PM CDT 04/08/2008 7:22 AM CDT us Riky Mejía MD POINT OF CARE TESTING Final Result Performing Organization Address City/[facility] de Phone Number INTERFACE SYSTEM Refer to clinic/hospital department [facility] CLIA# [id number] [address] [place] [address] * (ABNORMAL) POC GLUCOSE (04/07/2008 5:39 PM CDT) GLUCOSE POC 122(H) 60 - 100 mg/dL [facility] Venous blood specimen (specimen) 04/07/2008 5:39 PM CDT 04/08/2008 7:16 AM CDT Riky Mejía MD POINT OF CARE TESTING Final Result Performing Organization Address [facility] de Phone Number INTERFACE SYSTEM Refer to clinic/hospital department [facility] CLIA# [id number] [address] [place] [address] * (ABNORMAL) POC ISTAT EG 7+ (04/07/2008 4:27 PM CDT) FIO2 4 [facility] PO2 67(L) 80 - 105 mmHg [facility] CALCIUM IONIZED 1.15 1.12 - 1.32 mmol/l [facility] HEMATOCRIT ABG 32(L) 38 - 51 % [facility] PCO2 POC 45 35 - 45 mmHg [facility] SODIUM 137(L) 138 - 146 mEq/L [facility] BASE EXCESS 7(H) -2 - 3 mmol/l [facility] PH 7.45 7.35 - 7.45 Unit [facility] O2 SATURATION 94(L) 95 - 98 % [facility] PO2 TEMP CORRECT 67(L) 80 - 105 mmHg [facility] SPECIMEN TYPE Arterial [facility] Comment: Test Performed By [id number] Pulse OX: 99 Hemoglobin calculated from Hematocrit result PCO2 TEMP CORRECT 45 35 - 45 mmHg [facility] HEMOGLOBIN POC 10.9 +/-3 g/dL 12.0 - 16.0 g/dL [facility] POTASSIUM 4.0 3.5 - 4.9 mEq/L [facility] PH TEMP CORRECT 7.45 7.35 - 7.45 Unit [facility] HCO3 (CALC) POC 31.1(H) 22.0 - 26.0 mmol/l [facility] TCO2 (CALC) POC 32(H) 23 - 27 mmol/l [facility] Arterial blood specimen (specimen) 04/07/2008 4:27 PM CDT 04/07/2008 4:30 PM CDT Riky Mejía MD POINT OF CARE TESTING COM F inal Result Performing Organization Address [facility] de Phone Number INTERFACE SYSTEM Refer to clinic/hospital department [facility] CLIA# [id number] [address] [place] [address] * (ABNORMAL) POC GLUCOSE (04/07/2008 11:30 AM CDT) GLUCOSE POC 108(H) 60 - 100 mg/dL [facility] Venous blood specimen (specimen) 04/07/2008 11:30 AM CDT 04/08/2008 7:16 AM CDT Riky Mejía MD POINT OF CARE TESTING Final Result Performing Organization Address [facility] de Phone Number INTERFACE SYSTEM Refer to clinic/hospital department [facility] CLIA# [id number] [address] [place] [address] * (ABNORMAL) POC GLUCOSE (04/07/2008 5:02 AM CDT) GLUCOSE POC 138(H) 60 - 100 mg/dL [facility] Venous blood specimen (specimen) 04/07/2008 5:02 AM CDT 04/07/2008 7:10 AM CDT Riky Mejía MD POINT OF CARE TESTING Final Result INTERFACE SYSTEM Refer to clinic/hospital department [facility] CLIA# [id number] [address] [place] [address] * (ABNORMAL) CBC WITH DIFFERENTIAL (04/07/2008 3:13 AM CDT) HEMATOCRIT 30.3(L) 36.0 - 46.0 % [facility] EOSINOPHILS 1.6 0.0 - 7.0 % [facility] PLATELETS 140 140 - 440 K/ul [facility] PERIPHERAL BLOOD SMEAR REVIEW Automated Diff [facility] EOSINOPHIL ABSOLUTE 0.2 0.0 - 0.7 K/ul [facility] RBC 3.33(L) 4.20 - 5.40 Mil/ul [facility] LYMPHOCYTES 6.7(L) 24.0 - 44.0 % [facility] MCHC 32.3 30.0 - 35.0 g/dL [facility] LYMPHOCYTE ABSOLUTE 0.8(L) 1.2 - 4.0 K/ul [facility] MCV 91.0 84.0 - 103.0 Fl [facility] MPV 11.6 8.9 - 12.8 Fl [facility] BASOPHILS ABSOLUTE 0.0 0.0 - 0.2 K/ul [facility] BASOPHILS 0.2 0.0 - 1.0 % [facility] HEMOGLOBIN 9.8(L) 12.0 - 16.0 g/dL [facility] RDW 16.9(H) 11.0 - 14.5 % [facility] MONOCYTE ABSOLUTE 1.1(H) 0.1 - 0.6 K/ul [facility] MONOCYTES 9.4 2.0 - 10.0 % [facility] WBC 11.7(H) 4.5 - 11.0 K/ul [facility] MCH 29.4 27.0 - 34.0 pg [facility] NEUTROPHIL ABSOLUTE 9.6(H) 2.0 - 8.0 K/ul [facility] NEUTROPHILS 82.1(H) 42.2 - 75.2 % [facility] Blood specimen (specimen) 04/07/2008 3:13 AM CDT 04/07/2008 3:19 AM CDT us Riky Mejía MD HEMATOLOGY ORDERABLES Final Result Performing Organization Address City/[facility] Phone Number INTERFACE SYSTEM Refer to clinic/hospital department [facility] CLIA# [id number] [address] [place] [address] * (ABNORMAL) BASIC METABOLIC PANEL (04/07/2008 3:13 AM CDT) [facility] OSMOLALITY, CALCULATED 291 275 - 295 mOsm/Kg [facility] POTASSIUM 4.1 3.5 - 5.0 mEq/L [facility] CREATININE 0.6(L) 0.7 - 1.2 mg/dL [facility] CALCIUM 8.6 8.4 - 10.5 mg/dL [facility] GLUCOSE 141(H) 70 - 110 mg/dL [facility] CHLORIDE 105 95 - 110 mEq/L [facility] SODIUM 140 136 - 145 mEq/L [facility] ANION GAP 7(L) 9 - 20 mEq/L [facility] BUN 14 7 - 17 mg/dL [facility] CO2 32 22 - 32 mmol/l [facility] Blood specimen (specimen) 04/07/2008 3:13 AM CDT 04/07/2008 3:19 AM CDT us Riky Mejía MD CHEMISTRY ORDERABLES Final Result Performing Organization Address [facility] de Phone Number INTERFACE SYSTEM Refer to clinic/hospital department [facility] CLIA# [id number] [address] [place] [address] * (ABNORMAL) POC GLUCOSE (04/06/2008 8:09 PM CDT) [facility] GLUCOSE POC 118(H) 60 - 100 mg/dL [facility] Venous blood specimen (specimen) 04/06/2008 8:09 PM CDT 04/07/2008 7:13 AM CDT Riky Mejía MD POINT OF CARE TESTING Final Result Performing Organization Address [facility] Phone Number INTERFACE SYSTEM Refer to clinic/hospital department [facility] CLIA# [id number] [address] [place] [address] * (ABNORMAL) POC GLUCOSE (04/06/2008 5:03 PM CDT) GLUCOSE POC 131(H) 60 - 100 mg/dL [facility] Venous blood specimen (specimen) 04/06/2008 5:03 PM CDT 04/07/2008 7:10 AM CDT Riky Mejía MD POINT OF CARE TESTING Final Result Performing Organization Address [facility] Phone Number INTERFACE SYSTEM Refer to clinic/hospital department [facility] CLIA# [id number] [address] [place] [address] * (ABNORMAL) POC GLUCOSE (04/06/2008 10:59 AM CDT) GLUCOSE POC 128(H) 60 - 100 mg/dL [facility] Venous blood specimen (specimen) 04/06/2008 10:59 AM CDT 04/07/2008 7:10 AM CDT Riky Mejía MD POINT OF CARE TESTING Final Result Performing Organization Address [facility] de Phone Number INTERFACE SYSTEM Refer to clinic/hospital department [facility] CLIA# [id number] [address] [place] [address] * XR CHEST PA OR AP (04/06/2008 [...] GLUCOSE POC 126(H) 60 - 100 mg/dL [facility] Venous blood specimen (specimen) 04/06/2008 6:02 AM CDT 04/06/2008 7:01 AM CDT Riky Mejía MD POINT OF CARE TESTING Final Result INTERFACE SYSTEM Refer to clinic/hospital department [facility] CLIA# [id number] [address] [place] [address] * (ABNORMAL) CBC WITH DIFFERENTIAL (04/06/2008 3:55 AM CDT) NEUTROPHILS 81.1(H) 42.2 - 75.2 % [facility] MCH 29.1 27.0 - 34.0 pg [facility] NEUTROPHIL ABSOLUTE 8.9(H) 2.0 - 8.0 K/ul [facility] HEMATOCRIT 31.3(L) 36.0 - 46.0 % [facility] PLATELETS 122(L) 140 - 440 K/ul [facility] EOSINOPHIL ABSOLUTE 0.3 0.0 - 0.7 K/ul [facility] EOSINOPHILS 3.1 0.0 - 7.0 % [facility] RBC 3.47(L) 4.20 - 5.40 Mil/ul [facility] MCHC 32.3 30.0 - 35.0 g/dL [facility] LYMPHOCYTE ABSOLUTE 0.9(L) 1.2 - 4.0 K/ul [facility] LYMPHOCYTES 8.4(L) 24.0 - 44.0 % [facility] MCV 90.2 84.0 - 103.0 Fl [facility] BASOPHILS 0.2 0.0 - 1.0 % [facility] MPV 11.8 8.9 - 12.8 Fl [facility] BASOPHILS ABSOLUTE 0.0 0.0 - 0.2 K/ul [facility] HEMOGLOBIN 10.1(L) 12.0 - 16.0 g/dL [facility] MONOCYTES 7.2 2.0 - 10.0 % [facility] RDW 17.0(H) 11.0 - 14.5 % [facility] MONOCYTE ABSOLUTE 0.8(H) 0.1 - 0.6 K/ul [facility] WBC 11.0 4.5 - 11.0 K/ul [facility] Blood specimen (specimen) 04/06/2008 3:55 AM CDT 04/06/2008 4:00 AM CDT Marquis Scott MD HEMATOLOGY ORDERABLES Final Res ult INTERFACE SYSTEM Refer to clinic/hospital department [facility] CLIA# [id number] [facility] [place] [address] * (ABNORMAL) RENAL FUNCTION PANEL (04/06/2008 3:55 AM CDT) GLUCOSE 218(H) 70 - 110 mg/dL [facility] OSMOLALITY, CALCULATED 295 275 - 295 mOsm/Kg [facility] CHLORIDE 106 95 - 110 mEq/L [facility] ALBUMIN 3.0(L) 3.5 - 5.0 g/dL [facility] SODIUM 138 136 - 145 mEq/L [facility] BUN 22(H) 7 - 17 mg/dL [facility] CO2 30 22 - 32 mmol/l [facility] PHOSPHORUS 2.0(L) 2.5 - 4.6 mg/dL [facility] POTASSIUM 4.7 3.5 - 5.0 mEq/L [facility] ANION GAP 7(L) 9 - 20 mEq/L [facility] CREATININE 0.6(L) 0.7 - 1.2 mg/dL [facility] CALCIUM 8.2(L) 8.4 - 10.5 mg/dL [facility] Blood specimen (specimen) 04/06/2008 3:55 AM CDT 04/06/2008 4:00 AM CDT Marquis Scott MD CHEMISTRY ORDERABLES Final Resu lt Performing Organization Address City/[facility] Co de Phone Number INTERFACE SYSTEM Refer to clinic/hospital department [facility] CLIA# [id number] [address] [place] [address] * (ABNORMAL) POC GLUCOSE (04/05/2008 8:20 PM CDT) GLUCOSE POC 114(H) 60 - 100 mg/dL [facility] Venous blood specimen (specimen) 04/05/2008 8:20 PM CDT 04/06/2008 7:01 AM CDT Riky Mejía MD POINT OF CARE TESTING Final Result Performing Organization Address [facility] Phone Number INTERFACE SYSTEM Refer to clinic/hospital department [facility] CLIA# [id number] [address] [place] [address] * (ABNORMAL) POC GLUCOSE (04/05/2008 4:50 PM CDT) GLUCOSE POC 118(H) 60 - 100 mg/dL [facility] Venous blood specimen (specimen) 04/05/2008 4:50 PM CDT 04/06/2008 7:01 AM CDT us Riky Mejía MD POINT OF CARE TESTING Final Result Performing Organization Address [facility] Phone Number INTERFACE SYSTEM Refer to clinic/hospital department [facility] CLIA# [id number] [address] [place] [address] * IV CATHETER CULTURE (04/05/2008 4:00 PM CDT) FINAL REPORT No growth INTERFA CE SYSTEM 04/05/2008 4:00 PM CDT 04/05/2008 4:00 PM CDT Riky Mejía MD MICROBIOLOGY - GENERAL MINERVA ATKINSON Final Result Performing Organization Address [facility] Phone Number INTERFACE [...] GLUCOSE POC 120(H) 60 - 100 mg/dL [facility] Venous blood specimen (specimen) 04/05/2008 11:06 AM CDT 04/06/2008 7:01 AM CDT Riky Mejía MD POINT OF CARE TESTING Final Result INTERFACE SYSTEM Refer to clinic/hospital department [facility] CLIA# [id number] [address] [place] [address] * (ABNORMAL) POC GLUCOSE (04/05/2008 7:26 AM CDT) GLUCOSE POC 120(H) 60 - 100 mg/dL [facility] Venous blood specimen (specimen) 04/05/2008 7:26 AM CDT 04/06/2008 7:01 AM CDT Riky Mejía MD POINT OF CARE TESTING Final Result INTERFACE SYSTEM Refer to clinic/hospital department [facility] CLIA# [id number] [address] [place] [address] * PT AND APTT (04/05/2008 3:04 AM CDT) PTT 24.1 22.5 - 36.5 Secs [facility] Comment: Therapeutic Range: Hi-level PE/DVT heparin protocol 80.1 -95.0 sec Lo-level PE/DVT heparin protocol 67.1 - 80.0 sec Cardiac Heparin Protocol 67.1 - 85.0 sec Neuro Heparin Protocol 67.1 - 80.0 sec As of 09/25/2007 note change in APTT Normal Range. PROTIME 14.8 12.8 - 15.8 Secs [facility] Comment:As of 2007 not e change in normal range. INR 1.0 [facility] Comment: Expected Values for [...] Anticoagulation available from the pharmacy [facility] [phone] Blood specimen (specimen) 04/05/2008 3:04 AM CDT 04/05/2008 3:08 AM CDT Riky Mejía MD HEMATOLOGY ORDERABLES Edite d Performing Organization Address [facility] Phone Number INTERFACE SYSTEM Refer to clinic/hospital department [facility] CLIA# [id number] [address] [place] [address] * MAGNESIUM LEVEL (04/05/2008 3:04 AM CDT) MAGNESIUM 2.1 1.7 - 2.4 mg/dL [facility] Blood specimen (specimen) 04/05/2008 3:04 AM CDT 04/05/2008 3:08 AM CDT us Riky Mejía MD CHEMISTRY ORDERABLES Final Result Performing Organization Address [facility] Phone Number INTERFACE SYSTEM Refer to clinic/hospital department [facility] CLIA# [id number] [address] [place] [address] * (ABNORMAL) PHOSPHORUS (04/05/2008 3:04 AM CDT) PHOSPHORUS 1.7(L) 2.5 - 4.6 mg/dL [facility] Blood specimen (specimen) 04/05/2008 3:04 AM CDT 04/05/2008 3:08 AM CDT Riky Mejía MD CHEMISTRY ORDERABLES Final Result Performing Organization Address [facility] Phone Number INTERFACE SYSTEM Refer to clinic/hospital department [facility] CLIA# [id number] [address] [place] [address] * (ABNORMAL) BASIC METABOLIC PANEL (04/05/2008 3:04 AM CDT) CO2 30 22 - 32 mmol/l [facility] OSMOLALITY, CALCULATED 307(H) 275 - 295 mOsm/Kg [facility] POTASSIUM 3.9 3.5 - 5.0 mEq/L [facility] CREATININE 0.7 0.7 - 1.2 mg/dL [facility] CALCIUM 8.2(L) 8.4 - 10.5 mg/dL [facility] GLUCOSE 126(H) 70 - 110 mg/dL [facility] CHLORIDE 112(H) 95 - 110 mEq/L [facility] SODIUM 146(H) 136 - 145 mEq/L [facility] ANION GAP 8(L) 9 - 20 mEq/L [facility] BUN 32(H) 7 - 17 mg/dL [facility] Blood specimen (specimen) 04/05/2008 3:04 AM CDT 04/05/2008 3:08 AM CDT us Riky Mejía MD CHEMISTRY ORDERABLES Final Result Performing Organization Address City/State/[facility] Co de Phone Number INTERFACE SYSTEM Refer to clinic/hospital department [facility] CLIA# [id number] [address] [place] [address] * (ABNORMAL) CBC WITH DIFFERENTIAL (04/05/2008 3:04 AM CDT) EOSINOPHIL ABSOLUTE 0.2 0.0 - 0.7 K/ul [facility] EOSINOPHILS 2.2 0.0 - 7.0 % [facility] PERIPHERAL BLOOD SMEAR REVIEW Automated Diff [facility] RBC 3.51(L) 4.20 - 5.40 Mil/ul [facility] MCHC 33.2 30.0 - 35.0 g/dL [facility] LYMPHOCYTE ABSOLUTE 1.1(L) 1.2 - 4.0 K/ul [facility] LYMPHOCYTES 9.6(L) 24.0 - 44.0 % [facility] MCV 88.3 84.0 - 103.0 Fl [facility] BASOPHILS 0.1 0.0 - 1.0 % [facility] MPV 11.0 8.9 - 12.8 Fl [facility] BASOPHILS ABSOLUTE 0.0 0.0 - 0.2 K/ul [facility] HEMOGLOBIN 10.3(L) 12.0 - 16.0 g/dL [facility] MONOCYTES 8.4 2.0 - 10.0 % [facility] RDW 17.1(H) 11.0 - 14.5 % [facility] MONOCYTE ABSOLUTE 0.9(H) 0.1 - 0.6 K/ul [facility] WBC 10.9 4.5 - 11.0 K/ul [facility] NEUTROPHILS 79.7(H) 42.2 - 75.2 % [facility] MCH 29.3 27.0 - 34.0 pg [facility] NEUTROPHIL ABSOLUTE 8.7(H) 2.0 - 8.0 K/ul [facility] HEMATOCRIT 31.0(L) 36.0 - 46.0 % [facility] PLATELETS 91(L) 140 - 440 K/ul [facility] Blood specimen (specimen) 04/05/2008 3:04 AM CDT 04/05/2008 3:08 AM CDT Riky Mejía MD HEMATOLOGY ORDERABLES Final Result Performing Organization Address City/State/[facility] Co de Phone Number INTERFACE SYSTEM Refer to clinic/hospital department [facility] CLIA# [id number] [address] [place] [phone] * (ABNORMAL) RENAL FUNCTION PANEL (04/04/2008 5:04 PM CDT) ANION GAP 8(L) 9 - 20 mEq/L [facility] PHOSPHORUS 1.9(L) 2.5 - 4.6 mg/dL [facility] ALBUMIN 2.9(L) 3.5 - 5.0 g/dL [facility] CHLORIDE 117(H) 95 - 110 mEq/L [facility] CREATININE 1.2 0.7 - 1.2 mg/dL [facility] SODIUM 147(H) 136 - 145 mEq/L [facility] GLUCOSE 124(H) 70 - 110 mg/dL [facility] CO2 26 22 - 32 mmol/l [facility] CALCIUM 7.5(L) 8.4 - 10.5 mg/dL [facility] POTASSIUM 3.5 3.5 - 5.0 mEq/L [facility] OSMOLALITY, CALCULATED 309(H) 275 - 295 mOsm/Kg [facility] BUN 34(H) 7 - 17 mg/dL [facility] Blood specimen (specimen) 04/04/2008 5:04 PM CDT 04/04/2008 5:06 PM CDT us Riky Mejía MD CHEMISTRY ORDERABLES Edited INTERFACE SYSTEM Refer to clinic/hospital department [facility] CLIA# [id number] [address] [place] [address] * (ABNORMAL) CBC WITH DIFFERENTIAL (04/04/2008 5:04 PM CDT) HEMOGLOBIN 9.6(L) 12.0 - 16.0 g/dL [facility] RDW 16.8(H) 11.0 - 14.5 % [facility] MONOCYTE ABSOLUTE 0.9(H) 0.1 - 0.6 K/ul [facility] MONOCYTES 10.0 2.0 - 10.0 % [facility] WBC 9.4 4.5 - 11.0 K/ul [facility] MCH 29.0 27.0 - 34.0 pg [facility] NEUTROPHIL ABSOLUTE 7.3 2.0 - 8.0 K/ul [facility] NEUTROPHILS 77.7(H) 42.2 - 75.2 % [facility] HEMATOCRIT 28.9(L) 36.0 - 46.0 % [facility] EOSINOPHILS 1.1 0.0 - 7.0 % [facility] PLATELETS 83(L) 140 - 440 K/ul [facility] PERIPHERAL BLOOD SMEAR REVIEW Automated Diff [facility] EOSINOPHIL ABSOLUTE 0.1 0.0 - 0.7 K/ul [facility] RBC 3.31(L) 4.20 - 5.40 Mil/ul [facility] LYMPHOCYTES 11.1(L) 24.0 - 44.0 % [facility] MCHC 33.2 30.0 - 35.0 g/dL [facility] LYMPHOCYTE ABSOLUTE 1.0(L) 1.2 - 4.0 K/ul [facility] MCV 87.3 84.0 - 103.0 Fl [facility] MPV 11.6 8.9 - 12.8 Fl [facility] BASOPHILS ABSOLUTE 0.0 0.0 - 0.2 K/ul [facility] BASOPHILS 0.1 0.0 - 1.0 % [facility] Blood specimen (specimen) 04/04/2008 5:04 PM CDT 04/04/2008 5:06 PM CDT us Riky Mejía MD HEMATOLOGY ORDERABLES Final Result Performing Organization Address City/State/[facility] Co de Phone Number INTERFACE SYSTEM Refer to clinic/hospital department [facility] CLIA# [id number] [facility] [place] [address] * (ABNORMAL) POC ISTAT EG 7+ (04/04/2008 9:15 AM CDT) SODIUM 145 138 - 146 mEq/L [facility] BASE EXCESS 0 -2 - 3 mmol/l [facility] PH 7.39 7.35 - 7.45 Unit [facility] O2 SATURATION 94(L) 95 - 98 % [facility] PO2 TEMP CORRECT 70(L) 80 - 105 mmHg [facility] PCO2 TEMP CORRECT 42 35 - 45 mmHg [facility] HEMOGLOBIN POC 8.8 +/-3 g/dL 12.0 - 16.0 g/dL [facility] POTASSIUM 3.2(L) 3.5 - 4.9 mEq/L [facility] PH TEMP CORRECT 7.39 7.35 - 7.45 Unit [facility] HCO3 (CALC) POC 25.0 22.0 - 26.0 mmol/l [facility] TCO2 (CALC) POC 26 23 - 27 mmol/l [facility] SPECIMEN TYPE Arterial [facility] Comment: Test Performed By [id number] Pulse OX: 94 Hemoglobin calculated from Hematocrit result PO2 70(L) 80 - 105 mmHg [facility] CALCIUM IONIZED 1.12 1.12 - 1.32 mmol/l [facility] HEMATOCRIT ABG 26(L) 38 - 51 % [facility] PCO2 POC 42 35 - 45 mmHg [facility] Arterial blood specimen (specimen) 04/04/2008 9:15 AM CDT 04/04/2008 9:18 AM CDT Riky Mejía MD POINT OF CARE TESTING COM F inal Result Performing Organization Address [facility] de Phone Number INTERFACE SYSTEM Refer to clinic/hospital department [facility] CLIA# [id number] [address] [place] [phone] * PTT (04/04/2008 4:19 AM CDT) PTT 26.4 22.5 - 36.5 Secs [facility] Comment: Therapeutic Range: Hi-level [...] HEMATOLOGY ORDERABLES Final Result Performing Organization Address City/[facility]/ZIP Co de Phone Number INTERFACE SYSTEM Refer to clinic/hospital department [facility] CLIA# [id number] [address] [place] [address] * PROTIME-INR (04/04/2008 4:19 AM CDT) PROTIME 15.2 12.8 - 15.8 Secs [facility] Comment:As of 2007 not e change in normal range. INR 1.1 [facility] Comment: Expected Values for [...] for Anticoagulation available from the pharmacy Jolene Ramirez, Pharm D. [phone] Blood specimen (specimen) 04/04/2008 4:19 AM CDT 04/04/2008 4:23 AM CDT Riky Mejía MD HEMATOLOGY ORDERABLES Final Result Performing Organization Address [facility] Phone Number INTERFACE SYSTEM Refer to clinic/hospital department [facility] CLIA# [id number] [address] [place] [address] * (ABNORMAL) PHOSPHORUS (04/04/2008 4:19 AM CDT) PHOSPHORUS 1.9(L) 2.5 - 4.6 mg/dL [facility] Blood specimen (specimen) 04/04/2008 4:19 AM CDT 04/04/2008 4:23 AM CDT Riky Mejía MD CHEMISTRY ORDERABLES Final Result Performing Organization Address [facility] de Phone Number INTERFACE SYSTEM Refer to clinic/hospital department [facility] CLIA# [id number] [address] [place] [address] * MAGNESIUM LEVEL (04/04/2008 4:19 AM CDT) [facility] MAGNESIUM 1.8 1.7 - 2.4 mg/dL [facility] Blood specimen (specimen) 04/04/2008 4:19 AM CDT 04/04/2008 4:23 AM CDT Riky Mejía MD CHEMISTRY ORDERABLES Final Result Performing Organization Address [facility] de Phone Number INTERFACE SYSTEM Refer to clinic/hospital department [facility] CLIA# [id number] [address] [place] [address] * (ABNORMAL) COMPREHENSIVE METABOLIC PANEL (04/04/2008 4:19 AM CDT) [facility] ALBUMIN/GLOBULIN RATIO 1.4 1.0 - 2.3 [facility] POTASSIUM 3.3(L) 3.5 - 5.0 mEq/L [facility] ANION GAP 11 9 - 20 mEq/L [facility] ALBUMIN 3.0(L) 3.5 - 5.0 g/dL [facility] CREATININE 2.1(H) 0.7 - 1.2 mg/dL [facility] ALT 20 4 - 36 IU/L [facility] CALCIUM 8.3(L) 8.4 - 10.5 mg/dL [facility] GLUCOSE 124(H) 70 - 110 mg/dL [facility] ALKALINE PHOSPHATASE 42 25 - 100 U/L [facility] CHLORIDE 111(H) 95 - 110 mEq/L [facility] OSMOLALITY, CALCULATED 310(H) 275 - 295 mOsm/Kg [facility] GLOBULIN (CALC) 2.2(L) 2.4 - 3.9 g/dL [facility] TOTAL PROTEIN 5.2(L) 6.3 - 8.2 g/dL [facility] SODIUM 146(H) 136 - 145 mEq/L [facility] BILIRUBIN TOTAL 0.9 0.3 - 1.2 mg/dL [facility] CO2 27 22 - 32 mmol/l [facility] BUN 42(H) 7 - 17 mg/dL [facility] AST 104(H) 8 - 33 U/L [facility] Blood specimen (specimen) 04/04/2008 4:19 AM CDT 04/04/2008 4:23 AM CDT Riky Mejía MD CHEMISTRY ORDERABLES Final Result INTERFACE SYSTEM Refer to clinic/hospital department [facility] CLIA# [id number] [address] [place] [address] * (ABNORMAL) CBC WITH DIFFERENTIAL (04/04/2008 4:19 AM CDT) HEMATOCRIT 28.7(L) 36.0 - 46.0 % [facility] EOSINOPHILS 0.2 0.0 - 7.0 % [facility] PLATELETS 83(L) 140 - 440 K/ul [facility] PERIPHERAL BLOOD SMEAR REVIEW Automated Diff [facility] EOSINOPHIL ABSOLUTE 0.0 0.0 - 0.7 K/ul [facility] RBC 3.33(L) 4.20 - 5.40 Mil/ul [facility] LYMPHOCYTES 12.1(L) 24.0 - 44.0 % [facility] MCHC 33.4 30.0 - 35.0 g/dL [facility] LYMPHOCYTE ABSOLUTE 1.1(L) 1.2 - 4.0 K/ul [facility] MCV 86.2 84.0 - 103.0 Fl [facility] MPV 11.5 8.9 - 12.8 Fl [facility] BASOPHILS ABSOLUTE 0.0 0.0 - 0.2 K/ul [facility] BASOPHILS 0.2 0.0 - 1.0 % [facility] HEMOGLOBIN 9.6(L) 12.0 - 16.0 g/dL [facility] RDW 16.1(H) 11.0 - 14.5 % [facility] MONOCYTE ABSOLUTE 1.0(H) 0.1 - 0.6 K/ul [facility] MONOCYTES 10.5(H) 2.0 - 10.0 % [facility] WBC 9.0 4.5 - 11.0 K/ul [facility] MCH 28.8 27.0 - 34.0 pg [facility] NEUTROPHIL ABSOLUTE 6.9 2.0 - 8.0 K/ul [facility] NEUTROPHILS 77.0(H) 42.2 - 75.2 % [facility] Blood specimen (specimen) 04/04/2008 4:19 AM CDT 04/04/2008 4:23 AM CDT us Riky Mejía MD HEMATOLOGY ORDERABLES Final Result INTERFACE SYSTEM Refer to clinic/hospital department [facility] CLIA# [id number] [address] [place] [address] * (ABNORMAL) POC ISTAT EG 7+ (04/04/2008 4:07 AM CDT) POTASSIUM 3.1(L) 3.5 - 4.9 mEq/L [facility] PH TEMP CORRECT 7.45 7.35 - 7.45 Unit [facility] HCO3 (CALC) POC 24.5 22.0 - 26.0 mmol/l [facility] TCO2 (CALC) POC 26 23 - 27 mmol/l [facility] FIO2 50 [facility] PO2 138(H) 80 - 105 mmHg [facility] CALCIUM IONIZED 1.10(L) 1.12 - 1.32 mmol/l [facility] HEMATOCRIT ABG 25(L) 38 - 51 % [facility] PCO2 POC 35 35 - 45 mmHg [facility] SODIUM 143 138 - 146 mEq/L [facility] BASE EXCESS 1 -2 - 3 mmol/l [facility] PH 7.45 7.35 - 7.45 Unit [facility] O2 SATURATION 99(H) 95 - 98 % [facility] PO2 TEMP CORRECT 138(H) 80 - 105 mmHg [facility] SPECIMEN TYPE Arterial [facility] Comment: Test Performed By [id number] Tidal volume: 500 PEEP: 10 Rate: 14 Pulse OX: 100 Hemoglobin calculated from Hematocrit result PCO2 TEMP CORRECT 35 35 - 45 mmHg [facility] HEMOGLOBIN POC 8.5 +/-3 g/dL 12.0 - 16.0 g/dL [facility] Arterial blood specimen (specimen) 04/04/2008 4:07 AM CDT 04/04/2008 5:13 AM CDT us Riky Mejía MD POINT OF CARE TESTING COM F inal Result INTERFACE SYSTEM Refer to clinic/hospital department [facility] CLIA# [id number] [facility] [place] [address] * MRSA CULTURE (04/03/2008 9:03 PM CDT) FINAL REPORT Culture screen for MRSA negative INTERFACE SYSTEM 04/03/2008 9:03 PM CDT 04/03/2008 9:03 PM CDT us Riky Mejía MD MICROBIOLOGY - GENERAL [place] [facility] Final Result Performing Organization Address City/[facility]/ZIP Co de Phone Number INTERFACE [...] CALCIUM IONIZED 1.00(L) 1.12 - 1.32 mmol/l [facility] HEMATOCRIT ABG 24(L) 38 - 51 % [facility] PCO2 POC 36 35 - 45 mmHg [facility] SODIUM 144 138 - 146 mEq/L [facility] BASE EXCESS 0 -2 - 3 mmol/l [facility] PH 7.44 7.35 - 7.45 Unit [facility] O2 SATURATION 98 95 - 98 % [facility] PO2 TEMP CORRECT 101 80 - 105 mmHg [facility] SPECIMEN TYPE Arterial [facility] Comment: Test Performed By [id number] Tidal volume: 500 PEEP: 10 Rate: 16 Pulse OX: 96 Hemoglobin calculated from Hematocrit result PCO2 TEMP CORRECT 36 35 - 45 mmHg [facility] HEMOGLOBIN POC 8.2 +/-3 g/dL 12.0 - 16.0 g/dL [facility] POTASSIUM 3.2(L) 3.5 - 4.9 mEq/L [facility] PH TEMP CORRECT 7.44 7.35 - 7.45 Unit [facility] HCO3 (CALC) POC 23.9 22.0 - 26.0 mmol/l [facility] TCO2 (CALC) POC 25 23 - 27 mmol/l [facility] FIO2 60 [facility] PO2 101 80 - 105 mmHg [facility] Arterial blood specimen (specimen) 04/03/2008 8:35 PM CDT 04/03/2008 8:48 PM CDT Riky Mejía MD POINT OF CARE TESTING COM F inal Result Performing Organization Address [facility] de Phone Number INTERFACE SYSTEM Refer to clinic/hospital department [facility] CLIA# [id number] [address] [place] [address] * TYPE AND CROSSMATCH (04/03/2008 8:13 PM CDT) [facility] BLOOD BANK PRODUCT INTERFACE SYSTEM Blood specimen (specimen) 04/03/2008 8:13 PM CDT 04/03/2008 8:17 PM CDT Riky Mejía MD BLOOD BANK ORDERABLES Edite d Performing Organization Address [facility] Phone Number INTERFACE SYSTEM Refer to clinic/hospital department * (ABNORMAL) CBC WITH DIFFERENTIAL (04/03/2008 8:13 PM CDT) HEMATOCRIT 26.9(L) 36.0 - 46.0 % [facility] PLATELETS 102(L) 140 - 440 K/ul [facility] EOSINOPHIL ABSOLUTE 0.0 0.0 - 0.7 K/ul [facility] EOSINOPHILS 0.1 0.0 - 7.0 % [facility] RBC 3.13(L) 4.20 - 5.40 Mil/ul [facility] MCHC 33.8 30.0 - 35.0 g/dL [facility] LYMPHOCYTE ABSOLUTE 1.1(L) 1.2 - 4.0 K/ul [facility] LYMPHOCYTES 12.2(L) 24.0 - 44.0 % [facility] MCV 85.9 84.0 - 103.0 Fl [facility] BASOPHILS 0.1 0.0 - 1.0 % [facility] MPV 11.7 8.9 - 12.8 Fl [facility] BASOPHILS ABSOLUTE 0.0 0.0 - 0.2 K/ul [facility] HEMOGLOBIN 9.1(L) 12.0 - 16.0 g/dL [facility] MONOCYTES 11.9(H) 2.0 - 10.0 % [facility] RDW 16.2(H) 11.0 - 14.5 % [facility] MONOCYTE ABSOLUTE 1.1(H) 0.1 - 0.6 K/ul [facility] WBC 9.0 4.5 - 11.0 K/ul [facility] NEUTROPHILS 75.7(H) 42.2 - 75.2 % [facility] MCH 29.1 27.0 - 34.0 pg [facility] NEUTROPHIL ABSOLUTE 6.8 2.0 - 8.0 K/ul [facility] Blood specimen (specimen) 04/03/2008 8:13 PM CDT 04/03/2008 8:17 PM CDT us Riky Mejía MD HEMATOLOGY ORDERABLES Final Result INTERFACE SYSTEM Refer to clinic/hospital department [facility]# [id number] [address] [place] [address] * PTT (04/03/2008 8:13 PM CDT) PTT 28.1 22.5 - 36.5 Secs [facility] Comment: Therapeutic Range: Hi-level [...] HEMATOLOGY ORDERABLES Final Result Performing Organization Address [facility] Phone Number INTERFACE SYSTEM Refer to clinic/hospital department [facility] CLIA# [id number] [address] [place] [address] * (ABNORMAL) PROTIME-INR (04/03/2008 8:13 PM CDT) INR 1.2 [facility] Comment: Expected Values for [...] Anticoagulation available from the pharmacy Catrachito Pham [phone] PROTIME 16.3(H) 12.8 - 15.8 Secs [facility] Comment:As of 2007 not e change in normal range. Blood specimen (specimen) 04/03/2008 8:13 PM CDT 04/03/2008 8:17 PM CDT Riky Mejía MD HEMATOLOGY ORDERABLES Final Result Performing Organization Address [facility] de Phone Number INTERFACE SYSTEM Refer to clinic/hospital department [facility] CLIA# [id number] [address] [place] [address] * ANTIBODY SCREEN (04/03/2008 8:13 PM CDT) [facility] ANTIBODY SCREEN Negative [facility] Blood specimen (specimen) 04/03/2008 8:13 PM CDT 04/03/2008 8:17 PM CDT us Riky Mejía MD BLOOD BANK ORDERABLES Final Result Performing Organization Address [facility] de Phone Number INTERFACE SYSTEM Refer to clinic/hospital department [facility] CLIA# [id number] [address] [place] [address] * ABORH TYPING (04/03/2008 8:13 PM CDT) [facility] ABO/RH TYPE O Positive [facility] Blood specimen (specimen) 04/03/2008 8:13 PM CDT 04/03/2008 8:17 PM CDT us Riky Mejía MD BLOOD BANK ORDERABLES Final Result Performing Organization Address [facility] de Phone Number INTERFACE SYSTEM Refer to clinic/hospital department [facility] CLIA# [id number] [address] [place] [address] * (ABNORMAL) COMPREHENSIVE METABOLIC PANEL (04/03/2008 8:13 PM CDT) [facility] GLUCOSE 140(H) 70 - 110 mg/dL [facility] ALKALINE PHOSPHATASE 40 25 - 100 U/L [facility] CHLORIDE 112(H) 95 - 110 mEq/L [facility] AST 97(H) 8 - 33 U/L [facility] GLOBULIN (CALC) 1.9(L) 2.4 - 3.9 g/dL [facility] TOTAL PROTEIN 4.9(L) 6.3 - 8.2 g/dL [facility] SODIUM 146(H) 136 - 145 mEq/L [facility] ANION GAP 11 9 - 20 mEq/L [facility] CO2 26 22 - 32 mmol/l [facility] BUN 47(H) 7 - 17 mg/dL [facility] ALT 19 4 - 36 IU/L [facility] ALBUMIN/GLOBULIN RATIO 1.6 1.0 - 2.3 [facility] POTASSIUM 3.2(L) 3.5 - 5.0 mEq/L [facility] OSMOLALITY, CALCULATED 312(H) 275 - 295 mOsm/Kg [facility] ALBUMIN 3.0(L) 3.5 - 5.0 g/dL [facility] CREATININE 2.9(H) 0.7 - 1.2 mg/dL [facility] BILIRUBIN TOTAL 0.6 0.3 - 1.2 mg/dL [facility] CALCIUM 7.6(L) 8.4 - 10.5 mg/dL [facility] Blood specimen (specimen) 04/03/2008 8:13 PM CDT 04/03/2008 8:17 PM CDT Riky Mejía MD CHEMISTRY ORDERABLES Edited INTERFACE SYSTEM Refer to clinic/hospital department [facility] CLIA# [id number] [address] [place] [address] documented in this encounter Visit Diagnoses Not on filedocumented in this encounter Additional Health Concerns Infection Onset Date Last Indicated Resolved Time MRSA Comment:Kapil 10/26/15 10/27/2015 10/27/2015 documented as of this encounter Care Teams Gas Line Servicer Relationship Specialty Start Date End Date Jose Bowers MD [address] [place] [id number] PCP - General 12/31/05 documented as of this encounter
--- OUTSIDE RECORDS SUMMARY | 2025-04-03 15:39 | XMS_ITS | Patient Health Record ---
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
--- OUTSIDE RECORDS SUMMARY | 2025-04-03 15:39 | XMS_ITS | Clinical Summary ---
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
--- OUTSIDE RECORDS SUMMARY | 2025-04-03 15:39 | XMS_ITS | Patient Health Record ---
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
--- OUTSIDE RECORDS SUMMARY | 2025-04-03 15:39 | XMS_ITS | Encounter Summary ---
Author Organization [facility] Address [address] [place] [address] Care Team Providers Care Window Glazier Helper Name Role Phone Jose Bowers MD Primary Care Provider Levon lowry Encounter Details Date Type Department Care Team (Latest Contact Info) Description 04/28/2008 Outpatient Historical [facility] [address] [place] [address] AMBULANCE, [facility] Paraplegia ([facility]); Pressure Ulcer, Upper Back; Pressure Ulcer, Unspecified Stage; Wheelchair Dependence; Bed Confinement Status; Encounter for Long-Term (Current) Use of Other Medications; Encounter for Long-Term (Current) Use of Insulin ([facility]); Personal History of Allergy to Penicillin; Personal History of Allergy to Narcotic Agent Social History Tobacco Use Types Packs/Day Years Used Date Smoking Tobacco: Never Assessed Comments Unknown Sex and Gender Information Value Date Recorded Sex Assigned at Not on file Legal Sex Female 6:28 AM [employer] Gender Identity Not on file Sexual Orientation Not on file documented as of this encounter Plan of Treatment Not on file documented as of this encounter Visit Diagnoses Diagnosis Paraplegia Pressure ulcer, upper back(707.02) Pressure ulcer, upper back Pressure ulcer, unspecified stage(707.20) Pressure ulcer, unspecified stage Wheelchair dependence Bed confinement status Encounter for long-term (current) use of other medications Encounter for long-term (current) use of insulin ([facility]) Encounter for long-term (current) use of insulin Personal history of allergy to penicillin Personal history of allergy to narcotic agent documented in this encounter Additional Health Concerns Infection Onset Date Last Indicated Resolved Time MRSA Comment:Kapil 10/26/15 10/27/2015 10/27/2015 documented as of this encounter Care Teams Window Glazier Helper Relationship Specialty Start Date End Date Jose Bowers MD [address] [place] [id number] PCP - General 12/31/05 documented as of this encounter
--- OUTSIDE RECORDS SUMMARY | 2025-04-03 15:39 | XMS_ITS | Encounter Summary ---
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 Gender Identity Not on file Sexual [...] GLUCOSE POC 117(H) 60 - 100 mg/dL [facility] Venous blood specimen (specimen) 04/28/2008 12:22 PM CDT 04/29/2008 1:49 AM CDT us Riky Mejía MD POINT OF CARE TESTING Final Result Performing Organization Address [facility] de Phone Number INTERFACE SYSTEM Refer to clinic/hospital department [facility] CLIA# [id number] [address] [place] [address] * (ABNORMAL) POC GLUCOSE (04/28/2008 6:07 AM CDT) GLUCOSE POC 132(H) 60 - 100 mg/dL [facility] Venous blood specimen (specimen) 04/28/2008 6:07 AM CDT 04/29/2008 1:56 AM CDT us Riky Mejía MD POINT OF CARE TESTING Final Result Performing Organization Address [facility] Phone Number INTERFACE SYSTEM Refer to clinic/hospital department [facility] CLIA# [id number] [facility] [place] [address] * (ABNORMAL) BASIC METABOLIC PANEL (04/28/2008 5:15 AM CDT) ANION GAP 10 9 - 20 mEq/L [facility] SODIUM 137 136 - 145 mEq/L [facility] BUN 13 7 - 17 mg/dL [facility] CO2 30 22 - 32 mmol/l [facility] POTASSIUM 4.5 3.5 - 5.0 mEq/L [facility] Comment: Specimen slightly hemolyzed OSMOLALITY, CALCULATED 284 275 - 295 mOsm/Kg [facility] CREATININE 0.6(L) 0.7 - 1.2 mg/dL [facility] CALCIUM 9.0 8.4 - 10.5 mg/dL [facility] GLUCOSE 112(H) 70 - 110 mg/dL [facility] CHLORIDE 102 95 - 110 mEq/L [facility] Blood specimen (specimen) 04/28/2008 5:15 AM CDT 04/28/2008 5:29 AM CDT us Riky Mejía MD CHEMISTRY ORDERABLES Final Result Performing Organization Address [facility] de Phone Number INTERFACE SYSTEM Refer to clinic/hospital department [facility] CLIA# [id number] [address] [place] [address] * (ABNORMAL) POC GLUCOSE (04/27/2008 8:55 PM CDT) GLUCOSE POC 133(H) 60 - 100 mg/dL [facility] Venous blood specimen (specimen) 04/27/2008 8:55 PM CDT 04/28/2008 2:27 AM CDT us Riky Mejía MD POINT OF CARE TESTING Final Result Performing Organization Address [facility] Phone Number INTERFACE SYSTEM Refer to clinic/[facility] department [facility] CLIA# [id number] [facility] [place] [address] * (ABNORMAL) POC GLUCOSE (04/27/2008 4:38 PM CDT) GLUCOSE POC 112(H) 60 - 100 mg/dL [facility] COMMENT POC Follow Protocol [facility] Venous blood specimen (specimen) 04/27/2008 4:38 PM CDT 04/28/2008 12:35 AM CDT Riky Mejía MD POINT OF CARE TESTING Final Result Performing Organization Address [facility] de Phone Number INTERFACE SYSTEM Refer to clinic/hospital department [facility] CLIA# [id number] [address] [place] [address] * (ABNORMAL) POC GLUCOSE (04/27/2008 11:23 AM CDT) GLUCOSE POC 143(H) 60 - 100 mg/dL [facility] Venous blood specimen (specimen) 04/27/2008 11:23 AM CDT 04/28/2008 2:23 AM CDT Riky Mejía MD POINT OF CARE TESTING Final Result Performing Organization Address [facility] de Phone Number INTERFACE SYSTEM Refer to clinic/hospital department [facility] CLIA# [id number] [address] [place] [address] * (ABNORMAL) POC GLUCOSE (04/27/2008 6:38 AM CDT) GLUCOSE POC 122(H) 60 - 100 mg/dL [facility] Venous blood specimen (specimen) 04/27/2008 6:38 AM CDT 04/28/2008 2:33 AM CDT Riky Mejía MD POINT OF CARE TESTING Final Result Performing Organization Address [facility] de Phone Number INTERFACE SYSTEM Refer to clinic/[facility] CLIA# [id number] [address] [place] [address] * (ABNORMAL) POC GLUCOSE (04/26/2008 8:43 PM CDT) GLUCOSE POC 128(H) 60 - 100 mg/dL [facility] Venous blood specimen (specimen) 04/26/2008 8:43 PM CDT 04/27/2008 2:25 AM CDT Riky Mejía MD POINT OF CARE TESTING Final Result Performing Organization Address [facility] de Phone Number INTERFACE SYSTEM Refer to clinic/hospital department [facility] CLIA# [id number] [address] [place] [address] * (ABNORMAL) POC GLUCOSE (04/26/2008 4:53 PM CDT) GLUCOSE POC 113(H) 60 - 100 mg/dL [facility] Venous blood specimen (specimen) 04/26/2008 4:53 PM CDT 04/27/2008 2:26 AM CDT Riky Mejía MD POINT OF CARE TESTING Final Result Performing Organization Address [facility] Phone Number INTERFACE SYSTEM Refer to clinic/hospital department [facility] CLIA# [id number] [address] [place] [address] * (ABNORMAL) POC GLUCOSE (04/26/2008 11:28 AM CDT) GLUCOSE POC 125(H) 60 - 100 mg/dL [facility] Venous blood specimen (specimen) 04/26/2008 11:28 AM CDT 04/27/2008 2:25 AM CDT Riky Mejía MD POINT OF CARE TESTING Final Result Performing Organization Address [facility] de Phone Number INTERFACE SYSTEM Refer to clinic/hospital department [facility] CLIA# [id number] [address] [place] [address] * (ABNORMAL) POC GLUCOSE (04/26/2008 5:36 AM CDT) GLUCOSE POC 123(H) 60 - 100 mg/dL [facility] Venous blood specimen (specimen) 04/26/2008 5:36 AM CDT 04/27/2008 2:25 AM CDT Riky Mejía MD POINT OF CARE TESTING Final Result Performing Organization Address [facility] Phone Number INTERFACE SYSTEM Refer to clinic/hospital department [facility] CLIA# [id number] [address] [place] [address] * (ABNORMAL) TRANSFERRIN (04/26/2008 4:02 AM CDT) TRANSFERRIN 121.0(L) 204.0 - 376.0 mg/dL [facility] Blood specimen (specimen) 04/26/2008 4:02 AM CDT 04/26/2008 4:19 AM CDT Riky Mejía MD CHEMISTRY ORDERABLES Final Result Performing Organization Address [facility] Phone Number INTERFACE SYSTEM Refer to clinic/hospital department [facility] CLIA# [id number] [address] [place] [address] * PREALBUMIN (04/26/2008 4:02 AM CDT) PREALBUMIN 22.2 14.0 - 32.0 mg/dL [facility] Blood specimen (specimen) 04/26/2008 4:02 AM CDT 04/26/2008 4:19 AM CDT Riky Mejía MD CHEMISTRY ORDERABLES Final Result Performing Organization Address [facility] Phone Number INTERFACE SYSTEM Refer to clinic/[facility] CLIA# [id number] [address] [place] [address] * (ABNORMAL) PROTIME-INR (04/26/2008 4:02 AM CDT) PROTIME 16.1(H) 12.8 - 15.8 Secs [facility] Comment:As of 2007 not e change in normal range. INR 1.2 [facility] Comment: Expected Values for INR: [...] Anticoagulation available from the pharmacy [facility] [phone] Blood specimen (specimen) 04/26/2008 4:02 AM CDT 04/26/2008 4:19 AM CDT Riky Mejía MD HEMATOLOGY ORDERABLES Final Result INTERFACE SYSTEM Refer to clinic/hospital department [facility] CLIA# [id number] [address] [place] [address] * (ABNORMAL) CBC WITH DIFFERENTIAL (04/26/2008 4:02 AM CDT) BASOPHILS ABSOLUTE 0.1 0.0 - 0.2 K/ul [facility] HEMOGLOBIN 10.3(L) 12.0 - 16.0 g/dL [facility] MONOCYTES 11.6(H) 2.0 - 10.0 % [facility] RDW 18.2(H) 11.0 - 14.5 % [facility] MONOCYTE ABSOLUTE 0.9(H) 0.1 - 0.6 K/ul [facility] WBC 8.1 4.5 - 11.0 K/ul [facility] NEUTROPHILS 67.2 42.2 - 75.2 % [facility] MCH 29.3 27.0 - 34.0 pg [facility] NEUTROPHIL ABSOLUTE 5.5 2.0 - 8.0 K/ul [facility] HEMATOCRIT 33.7(L) 36.0 - 46.0 % [facility] PLATELETS 436 140 - 440 K/ul [facility] EOSINOPHIL ABSOLUTE 0.3 0.0 - 0.7 K/ul [facility] EOSINOPHILS 4.0 0.0 - 7.0 % [facility] PERIPHERAL BLOOD SMEAR REVIEW Automated Diff [facility] RBC 3.51(L) 4.20 - 5.40 Mil/ul [facility] MCHC 30.6 30.0 - 35.0 g/dL [facility] LYMPHOCYTE ABSOLUTE 1.3 1.2 - 4.0 K/ul [facility] LYMPHOCYTES 16.2(L) 24.0 - 44.0 % [facility] MCV 96.0 84.0 - 103.0 Fl [facility] BASOPHILS 1.0 0.0 - 1.0 % [facility] MPV 10.3 8.9 - 12.8 Fl [facility] Blood specimen (specimen) 04/26/2008 4:02 AM CDT 04/26/2008 4:19 AM CDT Narrative INTERFACE SYSTEM - 04/26/2008 4:35 AM CDT cbc with diff in am Riky Mejía MD HEMATOLOGY ORDERABLES Final Result INTERFACE SYSTEM Refer to clinic/hospital department [facility] CLIA# [id number] [address] [place] [address] * MAGNESIUM LEVEL (04/26/2008 4:02 AM CDT) MAGNESIUM 2.0 1.7 - 2.4 mg/dL [facility] Blood specimen (specimen) 04/26/2008 4:02 AM CDT 04/26/2008 4:19 AM CDT us Riky Mejía MD CHEMISTRY ORDERABLES Final Result Performing Organization Address [facility] Phone Number INTERFACE SYSTEM Refer to clinic/hospital department [facility] CLIA# [id number] [address] [place] [address] * TRIGLYCERIDE (04/26/2008 4:02 AM CDT) [facility] TRIGLYCERIDE 137 0 - 150 mg/dL [facility] Comment: On 11/10/2007, [facility] changed the triglyceride reference range to 0-150 mg/dl. This is the recommendation of the National Cholesterol Education Program (NCEP-ATPIII). Blood specimen (specimen) 04/26/2008 4:02 AM CDT 04/26/2008 4:19 AM CDT Riky Mejía MD CHEMISTRY ORDERABLES Final Result Performing Organization Address [facility] Phone Number INTERFACE SYSTEM Refer to clinic/hospital department [facility] CLIA# [id number] [address] [place] [address] * PHOSPHORUS (04/26/2008 4:02 AM CDT) [facility] PHOSPHORUS 4.1 2.5 - 4.6 mg/dL [facility] Blood specimen (specimen) 04/26/2008 4:02 AM CDT 04/26/2008 4:19 AM CDT Riky Mejía MD CHEMISTRY ORDERABLES Final Result Performing Organization Address [facility] Phone Number INTERFACE SYSTEM Refer to clinic/[facility] CLIA# [id number] [address] [place] [address] * (ABNORMAL) COMPREHENSIVE METABOLIC PANEL (04/26/2008 4:02 AM CDT) Pathologist [facility] OSMOLALITY, CALCULATED 284 275 - 295 mOsm/Kg [facility] GLOBULIN (CALC) 3.4 2.4 - 3.9 g/dL [facility] TOTAL PROTEIN 6.6 6.3 - 8.2 g/dL [facility] SODIUM 137 136 - 145 mEq/L [facility] BILIRUBIN TOTAL 0.8 0.3 - 1.2 mg/dL [facility] CO2 33(H) 22 - 32 mmol/l [facility] BUN 15 7 - 17 mg/dL [facility] AST 29 8 - 33 U/L [facility] ALBUMIN/GLOBULIN RATIO 0.9(L) 1.0 - 2.3 [facility] POTASSIUM 3.9 3.5 - 5.0 mEq/L [facility] ANION GAP 7(L) 9 - 20 mEq/L [facility] ALBUMIN 3.2(L) 3.5 - 5.0 g/dL [facility] CREATININE 0.6(L) 0.7 - 1.2 mg/dL [facility] ALT 27 4 - 36 IU/L [facility] CALCIUM 8.7 8.4 - 10.5 mg/dL [facility] GLUCOSE 110 70 - 110 mg/dL [facility] ALKALINE PHOSPHATASE 105(H) 25 - 100 U/L [facility] CHLORIDE 101 95 - 110 mEq/L [facility] Blood specimen (specimen) 04/26/2008 4:02 AM CDT 04/26/2008 4:19 AM CDT us Riky Mejía MD CHEMISTRY ORDERABLES Final Result INTERFACE SYSTEM Refer to clinic/hospital department [facility] CLIA# [id number] [address] [place] [address] * (ABNORMAL) BASIC METABOLIC PANEL (04/26/2008 4:02 AM CDT) GLUCOSE 110 70 - 110 mg/dL [facility] CHLORIDE 100 95 - 110 mEq/L [facility] ANION GAP 9 9 - 20 mEq/L [facility] SODIUM 137 136 - 145 mEq/L [facility] BUN 16 7 - 17 mg/dL [facility] CO2 32 22 - 32 mmol/l [facility] POTASSIUM 4.3 3.5 - 5.0 mEq/L [facility] OSMOLALITY, CALCULATED 285 275 - 295 mOsm/Kg [facility] CREATININE 0.5(L) 0.7 - 1.2 mg/dL [facility] CALCIUM 8.8 8.4 - 10.5 mg/dL [facility] Blood specimen (specimen) 04/26/2008 4:02 AM CDT 04/26/2008 4:19 AM CDT Riky Mejía MD CHEMISTRY ORDERABLES Final Result Performing Organization Address [facility] Phone Number INTERFACE SYSTEM Refer to clinic/hospital department [facility] CLIA# [id number] [address] [place] [address] * (ABNORMAL) POC GLUCOSE (04/25/2008 8:51 PM CDT) GLUCOSE POC 107(H) 60 - 100 mg/dL [facility] Venous blood specimen (specimen) 04/25/2008 8:51 PM CDT 04/26/2008 1:42 AM CDT Riky Mejía MD POINT OF CARE TESTING Final Result Performing Organization Address [facility] Phone Number INTERFACE SYSTEM Refer to clinic/hospital department [facility] CLIA# [id number] [address] [place] [address] * (ABNORMAL) POC GLUCOSE (04/25/2008 5:10 PM CDT) GLUCOSE POC 102(H) 60 - 100 mg/dL [facility] Venous blood specimen (specimen) 04/25/2008 5:10 PM CDT 04/26/2008 1:42 AM CDT Riky Mejía MD POINT OF CARE TESTING Final Result Performing Organization Address [facility] Phone Number INTERFACE SYSTEM Refer to clinic/hospital department [facility] CLIA# [id number] [address] [place] [address] * (ABNORMAL) POC GLUCOSE (04/25/2008 10:45 AM CDT) GLUCOSE POC 114(H) 60 - 100 mg/dL [facility] Venous blood specimen (specimen) 04/25/2008 10:45 AM CDT 04/26/2008 1:42 AM CDT Riky Mejía MD POINT OF CARE TESTING Final Result Performing Organization Address [facility] Phone Number INTERFACE SYSTEM Refer to clinic/hospital department [facility] CLIA# [id number] [address] [place] [address] * (ABNORMAL) POC GLUCOSE (04/25/2008 6:00 AM CDT) GLUCOSE POC 113(H) 60 - 100 mg/dL [facility] Venous blood specimen (specimen) 04/25/2008 6:00 AM CDT 04/26/2008 1:45 AM CDT Riky Mejía MD POINT OF CARE TESTING Final Result Performing Organization Address [facility] de Phone Number INTERFACE SYSTEM Refer to clinic/hospital department [facility] CLIA# [id number] [address] [place] [address] * (ABNORMAL) BASIC METABOLIC PANEL (04/25/2008 3:28 AM CDT) OSMOLALITY, CALCULATED 286 275 - 295 mOsm/Kg [facility] CREATININE 0.5(L) 0.7 - 1.2 mg/dL [facility] CALCIUM 8.9 8.4 - 10.5 mg/dL [facility] GLUCOSE 115(H) 70 - 110 mg/dL [facility] CHLORIDE 101 95 - 110 mEq/L [facility] SODIUM 136 136 - 145 mEq/L [facility] ANION GAP 10 9 - 20 mEq/L [facility] BUN 20(H) 7 - 17 mg/dL [facility] CO2 30 22 - 32 mmol/l [facility] POTASSIUM 4.9 3.5 - 5.0 mEq/L [facility] Blood specimen (specimen) 04/25/2008 3:28 AM CDT 04/25/2008 3:31 AM CDT Riky Mejía MD CHEMISTRY ORDERABLES Final Result Performing Organization Address [facility] Phone Number INTERFACE SYSTEM Refer to clinic/hospital department [facility] CLIA# [id number] [address] [place] [address] * (ABNORMAL) POC GLUCOSE (04/24/2008 8:30 PM CDT) GLUCOSE POC 121(H) 60 - 100 mg/dL [facility] Venous blood specimen (specimen) 04/24/2008 8:30 PM CDT 04/25/2008 1:43 AM CDT Riky Mejía MD POINT OF CARE TESTING Final Result Performing Organization Address [facility] Phone Number INTERFACE SYSTEM Refer to clinic/hospital department [facility] CLIA# [id number] [address] [place] [address] * (ABNORMAL) POC GLUCOSE (04/24/2008 5:10 PM CDT) GLUCOSE POC 109(H) 60 - 100 mg/dL [facility] Venous blood specimen (specimen) 04/24/2008 5:10 PM CDT 04/25/2008 1:43 AM CDT Riky Mejía MD POINT OF CARE TESTING Final Result Performing Organization Address [facility] de Phone Number INTERFACE SYSTEM Refer to clinic/hospital department [facility] CLIA# [id number] [address] [place] [address] * (ABNORMAL) POC GLUCOSE (04/24/2008 1:53 PM CDT) GLUCOSE POC 113(H) 60 - 100 mg/dL [facility] Venous blood specimen (specimen) 04/24/2008 1:53 PM CDT 04/25/2008 1:50 AM CDT Riky Mejía MD POINT OF CARE TESTING Final Result Performing Organization Address [facility] de Phone Number INTERFACE SYSTEM Refer to clinic/hospital department [facility] CLIA# [id number] [address] [place] [address] * (ABNORMAL) POC GLUCOSE (04/24/2008 11:40 AM CDT) GLUCOSE POC 160(H) 60 - 100 mg/dL [facility] Venous blood specimen (specimen) 04/24/2008 11:40 AM CDT 04/25/2008 1:50 AM CDT Riky Mejía MD POINT OF CARE TESTING Final Result Performing Organization Address [facility] de Phone Number INTERFACE SYSTEM Refer to clinic/hospital department [facility] CLIA# [id number] [address] [place] [address] * (ABNORMAL) POC GLUCOSE (04/24/2008 5:45 AM CDT) GLUCOSE POC 129(H) 60 - 100 mg/dL [facility] Venous blood specimen (specimen) 04/24/2008 5:45 AM CDT 04/25/2008 1:46 AM CDT Riky Mejía MD POINT OF CARE TESTING Final Result INTERFACE SYSTEM Refer to clinic/hospital department [facility] CLIA# [id number] [address] [place] [address] * (ABNORMAL) CBC WITH DIFFERENTIAL (04/24/2008 3:09 AM CDT) WBC 10.5 4.5 - 11.0 K/ul [facility] MCH 29.4 27.0 - 34.0 pg [facility] NEUTROPHIL ABSOLUTE 7.1 2.0 - 8.0 K/ul [facility] NEUTROPHILS 67.1 42.2 - 75.2 % [facility] HEMATOCRIT 32.8(L) 36.0 - 46.0 % [facility] EOSINOPHILS 4.3 0.0 - 7.0 % [facility] PLATELETS 491(H) 140 - 440 K/ul [facility] PERIPHERAL BLOOD SMEAR REVIEW Automated Diff [facility] EOSINOPHIL ABSOLUTE 0.5 0.0 - 0.7 K/ul [facility] RBC 3.44(L) 4.20 - 5.40 Mil/ul [facility] LYMPHOCYTES 17.3(L) 24.0 - 44.0 % [facility] MCHC 30.8 30.0 - 35.0 g/dL [facility] LYMPHOCYTE ABSOLUTE 1.8 1.2 - 4.0 K/ul [facility] MCV 95.3 84.0 - 103.0 Fl [facility] MPV 10.4 8.9 - 12.8 Fl [facility] BASOPHILS ABSOLUTE 0.1 0.0 - 0.2 K/ul [facility] BASOPHILS 1.3(H) 0.0 - 1.0 % [facility] HEMOGLOBIN 10.1(L) 12.0 - 16.0 g/dL [facility] RDW 17.8(H) 11.0 - 14.5 % [facility] MONOCYTE ABSOLUTE 1.1(H) 0.1 - 0.6 K/ul [facility] MONOCYTES 10.0 2.0 - 10.0 % [facility] Blood specimen (specimen) 04/24/2008 3:09 AM CDT 04/24/2008 3:21 AM CDT Riky Mejía MD HEMATOLOGY ORDERABLES Final Result Performing Organization Address [facility] Phone Number INTERFACE SYSTEM Refer to clinic/hospital department [facility] CLIA# [id number] [address] [place] [address] * (ABNORMAL) BASIC METABOLIC PANEL (04/24/2008 3:09 AM CDT) BUN 20(H) 7 - 17 mg/dL [facility] CO2 31 22 - 32 mmol/l [facility] POTASSIUM 4.6 3.5 - 5.0 mEq/L [facility] OSMOLALITY, CALCULATED 286 275 - 295 mOsm/Kg [facility] CREATININE 0.5(L) 0.7 - 1.2 mg/dL [facility] CALCIUM 8.8 8.4 - 10.5 mg/dL [facility] GLUCOSE 106 70 - 110 mg/dL [facility] CHLORIDE 100 95 - 110 mEq/L [facility] ANION GAP 11 9 - 20 mEq/L [facility] SODIUM 137 136 - 145 mEq/L [facility] Blood specimen (specimen) 04/24/2008 3:09 AM CDT 04/24/2008 3:21 AM CDT Riky Mejía MD CHEMISTRY ORDERABLES Final Result Performing Organization Address [facility] Phone Number INTERFACE SYSTEM Refer to clinic/hospital department [facility] CLIA# [id number] [address] [place] [address] * (ABNORMAL) POC GLUCOSE (04/23/2008 8:56 PM CDT) GLUCOSE POC 132(H) 60 - 100 mg/dL [facility] Venous blood specimen (specimen) 04/23/2008 8:56 PM CDT 04/24/2008 1:58 AM CDT us Riky Mejía MD POINT OF CARE TESTING Final Result Performing Organization Address City/[facility] de Phone Number INTERFACE SYSTEM Refer to clinic/hospital department [facility] CLIA# [id number] [address] [place] [address] * (ABNORMAL) POC GLUCOSE (04/23/2008 4:37 PM CDT) GLUCOSE POC 129(H) 60 - 100 mg/dL [facility] Venous blood specimen (specimen) 04/23/2008 4:37 PM CDT 04/24/2008 1:58 AM CDT us Riky Mejía MD POINT OF CARE TESTING Final Result Performing Organization Address [facility] Phone Number INTERFACE SYSTEM Refer to clinic/hospital department [facility] CLIA# [id number] [address] [place] [address] * (ABNORMAL) POC GLUCOSE (04/23/2008 11:23 AM CDT) GLUCOSE POC 147(H) 60 - 100 mg/dL [facility] Venous blood specimen (specimen) 04/23/2008 11:23 AM CDT 04/24/2008 7:04 AM CDT us Riky Mejía MD POINT OF CARE TESTING Final Result Performing Organization Address City/[facility] de Phone Number INTERFACE SYSTEM Refer to clinic/hospital department [facility] CLIA# [id number] [address] [place] [address] * (ABNORMAL) POC GLUCOSE (04/23/2008 7:53 AM CDT) GLUCOSE POC 160(H) 60 - 100 mg/dL [facility] Venous blood specimen (specimen) 04/23/2008 7:53 AM CDT 04/24/2008 7:05 AM CDT Riky Mejía MD POINT OF CARE TESTING Final Result Performing Organization Address [facility] Phone Number INTERFACE SYSTEM Refer to clinic/hospital department [facility] CLIA# [id number] [address] [place] [address] * (ABNORMAL) BASIC METABOLIC PANEL (04/23/2008 3:33 AM CDT) BUN 18(H) 7 - 17 mg/dL [facility] CO2 30 22 - 32 mmol/l [facility] POTASSIUM 4.2 3.5 - 5.0 mEq/L [facility] OSMOLALITY, CALCULATED 283 275 - 295 mOsm/Kg [facility] CREATININE 0.4(L) 0.7 - 1.2 mg/dL [facility] CALCIUM 8.4 8.4 - 10.5 mg/dL [facility] GLUCOSE 131(H) 70 - 110 mg/dL [facility] CHLORIDE 104 95 - 110 mEq/L [facility] ANION GAP 5(L) 9 - 20 mEq/L [facility] SODIUM 135(L) 136 - 145 mEq/L [facility] Blood specimen (specimen) 04/23/2008 3:33 AM CDT 04/23/2008 3:39 AM CDT Riky Mejía MD CHEMISTRY ORDERABLES Final Result Performing Organization Address [facility] Phone Number INTERFACE SYSTEM Refer to clinic/hospital department [facility] CLIA# [id number] [address] [place] [address] * (ABNORMAL) POC GLUCOSE (04/23/2008 3:22 AM CDT) GLUCOSE POC 130(H) 60 - 100 mg/dL [facility] Venous blood specimen (specimen) 04/23/2008 3:22 AM CDT 04/24/2008 7:07 AM CDT Riky Mejía MD POINT OF CARE TESTING Final Result Performing Organization Address City/[facility] de Phone Number INTERFACE SYSTEM Refer to clinic/hospital department [facility] CLIA# [id number] [address] [place] [address] * (ABNORMAL) POC GLUCOSE (04/22/2008 11:30 PM CDT) GLUCOSE POC 155(H) 60 - 100 mg/dL [facility] Venous blood specimen (specimen) 04/22/2008 11:30 PM CDT 04/23/2008 7:12 AM CDT Riky Mejía MD POINT OF CARE TESTING Final Result Performing Organization Address [facility] Phone Number INTERFACE SYSTEM Refer to clinic/hospital department [facility] CLIA# [id number] [address] [place] [address] * (ABNORMAL) POC GLUCOSE (04/22/2008 7:54 PM CDT) GLUCOSE POC 158(H) 60 - 100 mg/dL [facility] Venous blood specimen (specimen) 04/22/2008 7:54 PM CDT 04/23/2008 3:46 PM CDT Riky Mejía MD POINT OF CARE TESTING Final Result Performing Organization Address City/[facility] de Phone Number INTERFACE SYSTEM Refer to clinic/hospital department [facility] CLIA# [id number] [address] [place] [address] * (ABNORMAL) POC GLUCOSE (04/22/2008 4:09 PM CDT) GLUCOSE POC 129(H) 60 - 100 mg/dL [facility] Venous blood specimen (specimen) 04/22/2008 4:09 PM CDT 04/23/2008 3:46 PM CDT Riky Mejía MD POINT OF CARE TESTING Final Result Performing Organization Address City/[facility] de Phone Number INTERFACE SYSTEM Refer to clinic/hospital department [facility] CLIA# [id number] [address] [place] [address] * (ABNORMAL) POC GLUCOSE (04/22/2008 11:36 AM CDT) GLUCOSE POC 118(H) 60 - 100 mg/dL [facility] Venous blood specimen (specimen) 04/22/2008 11:36 AM CDT 04/23/2008 7:12 AM CDT Riky Mejía MD POINT OF CARE TESTING Final Result Performing Organization Address [facility] Phone Number INTERFACE SYSTEM Refer to clinic/hospital department [facility] CLIA# [id number] [address] [place] [address] * (ABNORMAL) POC GLUCOSE (04/22/2008 7:55 AM CDT) GLUCOSE POC 160(H) 60 - 100 mg/dL [facility] Venous blood specimen (specimen) 04/22/2008 7:55 AM CDT 04/24/2008 7:07 AM CDT Riky Mejía MD POINT OF CARE TESTING Final Result Performing Organization Address City/[facility] de Phone Number INTERFACE SYSTEM Refer to clinic/hospital department [facility] CLIA# [id number] [address] [place] [address] * (ABNORMAL) BASIC METABOLIC PANEL (04/22/2008 3:26 AM CDT) BUN 15 7 - 17 mg/dL [facility] CO2 28 22 - 32 mmol/l [facility] OSMOLALITY, CALCULATED 300(H) 275 - 295 mOsm/Kg [facility] POTASSIUM 3.0(L) 3.5 - 5.0 mEq/L [facility] CREATININE 0.2(L) 0.7 - 1.2 mg/dL [facility] CALCIUM 6.7(L) 8.4 - 10.5 mg/dL [facility] GLUCOSE 109 70 - 110 mg/dL [facility] CHLORIDE 109 95 - 110 mEq/L [facility] SODIUM 147(H) 136 - 145 mEq/L [facility] ANION GAP 13 9 - 20 mEq/L [facility] Blood specimen (specimen) 04/22/2008 3:26 AM CDT 04/22/2008 3:31 AM CDT Riky Mejía MD CHEMISTRY ORDERABLES Final Result Performing Organization Address City/[facility] Co ms Phone Number INTERFACE SYSTEM Refer to clinic/hospital department [facility] CLIA# [id number] [address] [place] [address] * POC GLUCOSE (04/22/2008 3:17 AM CDT) GLUCOSE POC 73 60 - 100 mg/dL [facility] Venous blood specimen (specimen) 04/22/2008 3:17 AM CDT 04/22/2008 6:51 AM CDT Riky Mejía MD POINT OF CARE TESTING Final Result Performing Organization Address [facility] Phone Number INTERFACE SYSTEM Refer to clinic/hospital department [facility] CLIA# [id number] [address] [place] [address] * (ABNORMAL) POC GLUCOSE (04/21/2008 11:17 PM CDT) GLUCOSE POC 130(H) 60 - 100 mg/dL [facility] Venous blood specimen (specimen) 04/21/2008 11:17 PM CDT 04/22/2008 6:51 AM CDT us Riky Mejía MD POINT OF CARE TESTING Final Result Performing Organization Address City/[facility] de Phone Number INTERFACE SYSTEM Refer to clinic/hospital department [facility] CLIA# [id number] [address] [place] [address] * (ABNORMAL) POC GLUCOSE (04/21/2008 7:59 PM CDT) GLUCOSE POC 135(H) 60 - 100 mg/dL [facility] Venous blood specimen (specimen) 04/21/2008 7:59 PM CDT 04/22/2008 6:51 AM CDT us Riky Mejía MD POINT OF CARE TESTING Final Result Performing Organization Address [facility] de Phone Number INTERFACE SYSTEM Refer to clinic/hospital department [facility] CLIA# [id number] [address] [place] [address] * (ABNORMAL) POC GLUCOSE (04/21/2008 4:29 PM CDT) GLUCOSE POC 144(H) 60 - 100 mg/dL [facility] COMMENT POC Follow Protocol [facility] Venous blood specimen (specimen) 04/21/2008 4:29 PM CDT 04/22/2008 6:51 AM CDT us Riky Mejía MD POINT OF CARE TESTING Final Result Performing Organization Address City/[facility] de Phone Number INTERFACE SYSTEM Refer to clinic/hospital department [facility] CLIA# [id number] [address] [place] [address] * (ABNORMAL) POC GLUCOSE (04/21/2008 1:17 PM CDT) COMMENT POC Follow Protocol [facility] GLUCOSE POC 145(H) 60 - 100 mg/dL [facility] Venous blood specimen (specimen) 04/21/2008 1:17 PM CDT 04/22/2008 6:51 AM CDT Riky Mejía MD POINT OF CARE TESTING Final Result Performing Organization Address [facility] Phone Number INTERFACE SYSTEM Refer to clinic/hospital department [facility] CLIA# [id number] [address] [place] [address] * POTASSIUM LEVEL (04/21/2008 7:33 AM CDT) POTASSIUM 4.2 3.5 - 5.0 mEq/L [facility] Comment: Specimen slightly hemolyzed Blood specimen (specimen) 04/21/2008 7:33 AM CDT 04/21/2008 7:33 AM CDT Riky Mejía MD CHEMISTRY ORDERABLES Final Result Performing Organization Address [facility] Phone Number INTERFACE SYSTEM Refer to clinic/hospital department [facility] CLIA# [id number] [address] [place] [address] * (ABNORMAL) POC GLUCOSE (04/21/2008 7:26 AM CDT) GLUCOSE POC 146(H) 60 - 100 mg/dL [facility] Venous blood specimen (specimen) 04/21/2008 7:26 AM CDT 04/22/2008 6:51 AM CDT Riky Mejía MD POINT OF CARE TESTING Final Result Performing Organization Address [facility] Phone Number INTERFACE SYSTEM Refer to clinic/hospital department [facility] CLIA# [id number] [address] [place] [address] * (ABNORMAL) POC GLUCOSE (04/21/2008 2:58 AM CDT) Pathologist [facility] GLUCOSE POC 128(H) 60 - 100 mg/dL [facility] Venous blood specimen (specimen) 04/21/2008 2:58 AM CDT 04/21/2008 7:32 AM CDT Riky Mejía MD POINT OF CARE TESTING Final Result Performing Organization Address [facility] de Phone Number INTERFACE SYSTEM Refer to clinic/hospital department [facility] CLIA# [id number] [address] [place] [address] * (ABNORMAL) BASIC METABOLIC PANEL (04/21/2008 2:00 AM CDT) Pathologist [facility] ANION GAP 7(L) 9 - 20 mEq/L [facility] SODIUM 137 136 - 145 mEq/L [facility] BUN 19(H) 7 - 17 mg/dL [facility] CO2 36(H) 22 - 32 mmol/l [facility] POTASSIUM 3.8 3.5 - 5.0 mEq/L [facility] OSMOLALITY, CALCULATED 287 275 - 295 mOsm/Kg [facility] CREATININE 0.4(L) 0.7 - 1.2 mg/dL [facility] CALCIUM 8.4 8.4 - 10.5 mg/dL [facility] GLUCOSE 142(H) 70 - 110 mg/dL [facility] CHLORIDE 98 95 - 110 mEq/L [facility] Blood specimen (specimen) 04/21/2008 2:00 AM CDT 04/21/2008 2:00 AM CDT Riky Mejía MD CHEMISTRY ORDERABLES Final Result Performing Organization Address [facility] de Phone Number INTERFACE SYSTEM Refer to clinic/hospital department [facility] CLIA# [id number] [address] [place] [address] * (ABNORMAL) POC GLUCOSE (04/20/2008 11:57 PM CDT) Pathologist [facility] GLUCOSE POC 142(H) 60 - 100 mg/dL [facility] Venous blood specimen (specimen) 04/20/2008 11:57 PM CDT 04/21/2008 12:09 AM CDT Riky Mejía MD POINT OF CARE TESTING Final Result Performing Organization Address [facility] de Phone Number INTERFACE SYSTEM Refer to clinic/hospital department [facility] CLIA# [id number] [facility] [place] [address] * (ABNORMAL) BASIC METABOLIC PANEL (04/20/2008 11:40 PM CDT) [facility] POTASSIUM 3.8 3.5 - 5.0 mEq/L [facility] Comment: Specimen slightly hemolyzed OSMOLALITY, CALCULATED 286 275 - 295 mOsm/Kg [facility] CREATININE 0.5(L) 0.7 - 1.2 mg/dL [facility] CALCIUM 8.7 8.4 - 10.5 mg/dL [facility] GLUCOSE 119(H) 70 - 110 mg/dL [facility] CHLORIDE 95 95 - 110 mEq/L [facility] ANION GAP 13 9 - 20 mEq/L [facility] SODIUM 137 136 - 145 mEq/L [facility] BUN 20(H) 7 - 17 mg/dL [facility] CO2 33(H) 22 - 32 mmol/l [facility] Blood specimen (specimen) 04/20/2008 11:40 PM CDT 04/21/2008 5:43 AM CDT us Riky Mejía MD CHEMISTRY ORDERABLES Final Result Performing Organization Address [facility] Co de Phone Number INTERFACE SYSTEM Refer to clinic/hospital department [facility] CLIA# [id number] [address] [place] [address] * (ABNORMAL) POC GLUCOSE (04/20/2008 7:17 PM CDT) GLUCOSE POC 134(H) 60 - 100 mg/dL [facility] Venous blood specimen (specimen) 04/20/2008 7:17 PM CDT 04/21/2008 12:00 AM CDT Riky Mejía MD POINT OF CARE TESTING Final Result Performing Organization Address [facility] de Phone Number INTERFACE SYSTEM Refer to clinic/hospital department [facility] CLIA# [id number] [address] [place] [address] * POTASSIUM LEVEL (04/20/2008 4:09 PM CDT) POTASSIUM 4.1 3.5 - 5.0 mEq/L [facility] Blood specimen (specimen) 04/20/2008 4:09 PM CDT 04/20/2008 4:09 PM CDT Riky Mejía MD CHEMISTRY ORDERABLES Final Result Performing Organization Address [facility] de Phone Number INTERFACE SYSTEM Refer to clinic/hospital department [facility] CLIA# [id number] [address] [place] [address] * (ABNORMAL) POC GLUCOSE (04/20/2008 3:59 PM CDT) GLUCOSE POC 118(H) 60 - 100 mg/dL [facility] Venous blood specimen (specimen) 04/20/2008 3:59 PM CDT 04/21/2008 12:00 AM CDT Riky Mejía MD POINT OF CARE TESTING Final Result Performing Organization Address [facility] de Phone Number INTERFACE SYSTEM Refer to clinic/hospital department [facility] CLIA# [id number] [address] [place] [address] * (ABNORMAL) POC GLUCOSE (04/20/2008 12:02 PM CDT) GLUCOSE POC 158(H) 60 - 100 mg/dL [facility] Venous blood specimen (specimen) 04/20/2008 12:02 PM CDT 04/21/2008 12:00 AM CDT Riky Mejía MD POINT OF CARE TESTING Final Result INTERFACE SYSTEM Refer to clinic/hospital department [facility] CLIA# [id number] [address] [place] [address] * (ABNORMAL) POC ISTAT EG 7+ (04/20/2008 10:06 AM CDT) SPECIMEN TYPE Arterial [facility] Comment: Test Performed By [id number] Pulse OX: 97 Hemoglobin calculated from Hematocrit result PCO2 TEMP CORRECT 48(H) 35 - 45 mmHg [facility] HEMOGLOBIN POC 10.5 +/-3 g/dL 12.0 - 16.0 g/dL [facility] POTASSIUM 3.8 3.5 - 4.9 mEq/L [facility] PH TEMP CORRECT 7.47(H) 7.35 - 7.45 Unit [facility] HCO3 (CALC) POC 35.4(H) 22.0 - 26.0 mmol/l [facility] TCO2 (CALC) POC 37(H) 23 - 27 mmol/l [facility] FIO2 40 [facility] PO2 90 80 - 105 mmHg [facility] CALCIUM IONIZED 1.06(L) 1.12 - 1.32 mmol/l [facility] HEMATOCRIT ABG 31(L) 38 - 51 % [facility] PCO2 POC 48(H) 35 - 45 mmHg [facility] SODIUM 134(L) 138 - 146 mEq/L [facility] BASE EXCESS 12(H) -2 - 3 mmol/l [facility] PH 7.47(H) 7.35 - 7.45 Unit [facility] O2 SATURATION 97 95 - 98 % [facility] PO2 TEMP CORRECT 90 80 - 105 mmHg [facility] Arterial blood specimen (specimen) 04/20/2008 10:06 AM CDT 04/20/2008 11:14 AM CDT us Riky Mejía MD POINT OF CARE TESTING COM F inal Result Performing Organization Address [facility] de Phone Number INTERFACE SYSTEM Refer to clinic/hospital department [facility] CLIA# [id number] [address] [place] [address] * POTASSIUM LEVEL (04/20/2008 7:15 AM CDT) POTASSIUM 4.5 3.5 - 5.0 mEq/L [facility] Blood specimen (specimen) 04/20/2008 7:15 AM CDT 04/20/2008 7:20 AM CDT us Riky Mejía MD CHEMISTRY ORDERABLES Final Result Performing Organization Address [facility] de Phone Number INTERFACE SYSTEM Refer to clinic/hospital department [facility] CLIA# [id number] [address] [place] [address] * (ABNORMAL) POC GLUCOSE (04/20/2008 7:11 AM CDT) GLUCOSE POC 138(H) 60 - 100 mg/dL [facility] Venous blood specimen (specimen) 04/20/2008 7:11 AM CDT 04/20/2008 11:59 PM CDT us Riky Mejía MD POINT OF CARE TESTING Final Result Performing Organization Address City/[facility] de Phone Number INTERFACE SYSTEM Refer to clinic/hospital department [facility] CLIA# [id number] [address] [place] [address] * (ABNORMAL) POC ISTAT EG 7+ (04/20/2008 4:30 AM CDT) FIO2 30 [facility] HEMATOCRIT ABG 29(L) 38 - 51 % [facility] PO2 84 80 - 105 mmHg [facility] CALCIUM IONIZED 1.11(L) 1.12 - 1.32 mmol/l [facility] PCO2 POC 44 35 - 45 mmHg [facility] BASE EXCESS 14(H) -2 - 3 mmol/l [facility] SODIUM 131(L) 138 - 146 mEq/L [facility] PH 7.53(H) 7.35 - 7.45 Unit [facility] PO2 TEMP CORRECT 84 80 - 105 mmHg [facility] O2 SATURATION 97 95 - 98 % [facility] SPECIMEN TYPE Arterial [facility] Comment: Test Performed By [id number] PEEP: 06 Pressure Support: 14 Pulse OX: 96 Hemoglobin calculated from Hematocrit result PCO2 TEMP CORRECT 44 35 - 45 mmHg [facility] POTASSIUM 4.0 3.5 - 4.9 mEq/L [facility] HEMOGLOBIN POC 9.9 +/-3 g/dL 12.0 - 16.0 g/dL [facility] PH TEMP CORRECT 7.53(H) 7.35 - 7.45 Unit [facility] TCO2 (CALC) POC 38(H) 23 - 27 mmol/l [facility] HCO3 (CALC) POC 36.4(H) 22.0 - 26.0 mmol/l [facility] Arterial blood specimen (specimen) 04/20/2008 4:30 AM CDT 04/20/2008 5:54 AM CDT us Riky Mejía MD POINT OF CARE TESTING COM F inal Result INTERFACE SYSTEM Refer to clinic/hospital department [facility] CLIA# [id number] [address] [place] [address] * (ABNORMAL) DIFFERENTIAL, MANUAL (04/20/2008 4:04 AM CDT) POIKILOCYTES 1+(A) None Seen [facility] MONOCYTE 9 4 - 10 % [facility] RBC MORPHOLOGY Abnormal(A ) Normal [facility] BANDS 11(H) 0 - 6 % [facility] POLYCHROMASIA 1+(A) None Seen [facility] EOSINOPHILS 1 0 - 3 % [facility] ANISOCYTOSIS 1+(A) None Seen [facility] PLATELET EST. Normal Normal [facility] LYMPHOCYTES 17(L) 24 - 44 % [facility] NEUTROPHILS, SEG 62 36 - 66 % [facility] Blood specimen (specimen) 04/20/2008 4:04 AM CDT 04/20/2008 4:16 AM CDT Narrative INTERFACE SYSTEM - 04/20/2008 5:12 AM CDT Differential ordered by policy. Riky Mejía MD HEMATOLOGY ORDERABLES COM F inal Result INTERFACE SYSTEM Refer to clinic/hospital department [facility] CLIA# [id number] [address] [place] [address] * (ABNORMAL) PT AND APTT (04/20/2008 4:04 AM CDT) PTT 31.3 22.5 - 36.5 Secs [facility] Comment: Therapeutic Range: Hi-level PE/DVT heparin protocol 80.1 -95.0 sec Lo-level PE/DVT heparin protocol 67.1 - 80.0 sec Cardiac Heparin Protocol 67.1 - 85.0 sec Neuro Heparin Protocol 67.1 - 80.0 sec As of 09/25/2007 note change in APTT Normal Range. PROTIME 17.4(H) 12.8 - 15.8 Secs [facility] Comment:As of 2007 not e change in normal range. INR 1.3 [facility] Comment: Expected Values for INR: [...] Anticoagulation available from the pharmacy [facility] [phone] Blood specimen (specimen) 04/20/2008 4:04 AM CDT 04/20/2008 4:16 AM CDT Riky Mejía MD HEMATOLOGY ORDERABLES Edite d INTERFACE SYSTEM Refer to clinic/hospital department [facility] CLIA# [id number] [address] [place] [address] * (ABNORMAL) CBC WITH DIFFERENTIAL (04/20/2008 4:04 AM CDT) HEMATOCRIT 30.6(L) 36.0 - 46.0 % [facility] PLATELETS 436 140 - 440 K/ul [facility] RBC 3.30(L) 4.20 - 5.40 Mil/ul [facility] MCHC 32.0 30.0 - 35.0 g/dL [facility] MCV 92.7 84.0 - 103.0 Fl [facility] MPV 10.2 8.9 - 12.8 Fl [facility] HEMOGLOBIN 9.8(L) 12.0 - 16.0 g/dL [facility] RDW 17.3(H) 11.0 - 14.5 % [facility] WBC 13.0(H) 4.5 - 11.0 K/ul [facility] MCH 29.7 27.0 - 34.0 pg [facility] Blood specimen (specimen) 04/20/2008 4:04 AM CDT 04/20/2008 4:16 AM CDT Riky Mejía MD HEMATOLOGY ORDERABLES Edite d Performing Organization Address [facility] Phone Number INTERFACE SYSTEM Refer to clinic/hospital department [facility] CLIA# [id number] [address] [place] [address] * (ABNORMAL) BASIC METABOLIC PANEL (04/20/2008 4:04 AM CDT) BUN 19(H) 7 - 17 mg/dL [facility] CO2 33(H) 22 - 32 mmol/l [facility] POTASSIUM 4.1 3.5 - 5.0 mEq/L [facility] OSMOLALITY, CALCULATED 280 275 - 295 mOsm/Kg [facility] CREATININE 0.5(L) 0.7 - 1.2 mg/dL [facility] CALCIUM 8.6 8.4 - 10.5 mg/dL [facility] GLUCOSE 146(H) 70 - 110 mg/dL [facility] CHLORIDE 97 95 - 110 mEq/L [facility] ANION GAP 7(L) 9 - 20 mEq/L [facility] SODIUM 133(L) 136 - 145 mEq/L [facility] Blood specimen (specimen) 04/20/2008 4:04 AM CDT 04/20/2008 4:40 AM CDT us Riky Mejía MD CHEMISTRY ORDERABLES Final Result Performing Organization Address [facility] Phone Number INTERFACE SYSTEM Refer to clinic/hospital department [facility] CLIA# [id number] [address] [place] [address] * (ABNORMAL) POC GLUCOSE (04/20/2008 3:59 AM CDT) GLUCOSE POC 160(H) 60 - 100 mg/dL [facility] Venous blood specimen (specimen) 04/20/2008 3:59 AM CDT 04/20/2008 6:38 AM CDT Riky Mejía MD POINT OF CARE TESTING Final Result Performing Organization Address [facility] Phone Number INTERFACE SYSTEM Refer to clinic/hospital department [facility] CLIA# [id number] [address] [place] [address] * POTASSIUM LEVEL (04/19/2008 11:37 PM CDT) POTASSIUM 4.3 3.5 - 5.0 mEq/L [facility] Blood specimen (specimen) 04/19/2008 11:37 PM CDT 04/19/2008 11:46 PM CDT Riky Mejía MD CHEMISTRY ORDERABLES Final Result Performing Organization Address [facility] Phone Number INTERFACE SYSTEM Refer to clinic/hospital [facility] CLIA# [id number] [address] [place] [address] * (ABNORMAL) POC GLUCOSE (04/19/2008 11:30 PM CDT) GLUCOSE POC 156(H) 60 - 100 mg/dL [facility] Venous blood specimen (specimen) 04/19/2008 11:30 PM CDT 04/20/2008 6:37 AM CDT us Riky Mejía MD POINT OF CARE TESTING Final Result Performing Organization Address [facility] Phone Number INTERFACE SYSTEM Refer to clinic/hospital [facility] CLIA# [id number] [address] [place] [address] * (ABNORMAL) DIFFERENTIAL, MANUAL (04/19/2008 8:35 PM CDT) MONOCYTE 12(H) 4 - 10 % [facility] ANISOCYTOSIS 1+(A) None Seen [facility] BANDS 18(H) 0 - 6 % [facility] PLATELET EST. Normal Normal [facility] METAMYELOCYTE 2(H) 0 - 1 % [facility] POLYCHROMASIA 1+(A) None Seen [facility] LYMPHOCYTES 6(L) 24 - 44 % [facility] RBC MORPHOLOGY Abnormal(A ) Normal [facility] NEUTROPHILS, SEG 57 36 - 66 % [facility] MYELOCYTES 5(H) <=1 % [facility] GIANT PLATELETS Present(A) [facility] Blood specimen (specimen) 04/19/2008 8:35 PM CDT 04/19/2008 8:35 PM CDT Narrative INTERFACE SYSTEM - 04/19/2008 10:07 PM CDT Differential ordered by policy. Riky Mejía MD HEMATOLOGY ORDERABLES COM F inal Result INTERFACE SYSTEM Refer to clinic/hospital department [facility] CLIA# [id number] [address] [place] [address] * (ABNORMAL) PT AND APTT (04/19/2008 8:35 PM CDT) INR 1.3 [facility] Comment: Expected Values for INR: [...] Anticoagulation available from the pharmacy [facility] [phone] PROTIME 17.0(H) 12.8 - 15.8 Secs [facility] Comment:As of 2007 not e change in normal range. PTT 33.0 22.5 - 36.5 Secs [facility] Comment: Therapeutic Range: Hi-level PE/DVT [...] HEMATOLOGY ORDERABLES Edite d Performing Organization Address City/State/[facility] Co de Phone Number INTERFACE SYSTEM Refer to clinic/hospital department [facility] CLIA# [id number] [place] [address] * (ABNORMAL) CBC WITH DIFFERENTIAL (04/19/2008 8:35 PM CDT) RBC 3.37(L) 4.20 - 5.40 Mil/ul [facility] MCHC 31.6 30.0 - 35.0 g/dL [facility] LYMPHOCYTE ABSOLUTE 1.8 1.2 - 4.0 K/ul [facility] LYMPHOCYTES 12.2(L) 24.0 - 44.0 % [facility] MCV 92.9 84.0 - 103.0 Fl [facility] BASOPHILS 0.9 0.0 - 1.0 % [facility] MPV 10.4 8.9 - 12.8 Fl [facility] NRBC 1 <=1 [facility] BASOPHILS ABSOLUTE 0.1 0.0 - 0.2 K/ul [facility] HEMOGLOBIN 9.9(L) 12.0 - 16.0 g/dL [facility] MONOCYTES 10.2(H) 2.0 - 10.0 % [facility] RDW 17.4(H) 11.0 - 14.5 % [facility] MONOCYTE ABSOLUTE 1.5(H) 0.1 - 0.6 K/ul [facility] NEUTROPHILS 75.3(H) 42.2 - 75.2 % [facility] MCH 29.4 27.0 - 34.0 pg [facility] WBC 14.9(H) 4.5 - 11.0 K/ul [facility] Comment: WBC Corrected for Nucleated RBC'S NEUTROPHIL ABSOLUTE 11.3(H) 2.0 - 8.0 K/ul [facility] HEMATOCRIT 31.3(L) 36.0 - 46.0 % [facility] PLATELETS 459(H) 140 - 440 K/ul [facility] EOSINOPHIL ABSOLUTE 0.2 0.0 - 0.7 K/ul [facility] EOSINOPHILS 1.4 0.0 - 7.0 % [facility] Blood specimen (specimen) 04/19/2008 8:35 PM CDT 04/19/2008 8:35 PM CDT us Riky Mejía MD HEMATOLOGY ORDERABLES Edite d Performing Organization Address City/[facility] Co de Phone Number INTERFACE SYSTEM Refer to clinic/hospital department [facility] CLIA# [id number] [address] [place] [address] * (ABNORMAL) POC GLUCOSE (04/19/2008 8:31 PM CDT) GLUCOSE POC 115(H) 60 - 100 mg/dL [facility] Venous blood specimen (specimen) 04/19/2008 8:31 PM CDT 04/20/2008 6:37 AM CDT Riky Mejía MD POINT OF CARE TESTING Final Result Performing Organization Address City/[facility] Co de Phone Number INTERFACE SYSTEM Refer to clinic/hospital department [facility] CLIA# [id number] [address] [place] [address] * XR CHEST PA OR AP (04/19/2008 [...] GLUCOSE POC 125(H) 60 - 100 mg/dL [facility] Venous blood specimen (specimen) 04/19/2008 4:58 PM CDT 04/20/2008 7:00 AM CDT Riky Mejía MD POINT OF CARE TESTING Final Result Performing Organization Address [facility] Phone Number INTERFACE SYSTEM Refer to clinic/hospital department [facility] CLIA# [id number] [address] [place] [address] * POTASSIUM LEVEL (04/19/2008 4:30 PM CDT) POTASSIUM 4.0 3.5 - 5.0 mEq/L [facility] Blood specimen (specimen) 04/19/2008 4:30 PM CDT 04/19/2008 4:30 PM CDT Riky Mejía MD CHEMISTRY ORDERABLES Final Result Performing Organization Address [facility] Phone Number INTERFACE SYSTEM Refer to clinic/hospital department [facility] CLIA# [id number] [address] [place] [address] * (ABNORMAL) POC GLUCOSE (04/19/2008 12:04 PM CDT) GLUCOSE POC 139(H) 60 - 100 mg/dL [facility] Venous blood specimen (specimen) 04/19/2008 12:04 PM CDT 04/20/2008 7:00 AM CDT us Riky Mejía MD POINT OF CARE TESTING Final Result Performing Organization Address [facility] Phone Number INTERFACE SYSTEM Refer to clinic/hospital department [facility] CLIA# [id number] [address] [place] [address] * (ABNORMAL) POC GLUCOSE (04/19/2008 8:28 AM CDT) GLUCOSE POC 144(H) 60 - 100 mg/dL [facility] Venous blood specimen (specimen) 04/19/2008 8:28 AM CDT 04/20/2008 7:00 AM CDT Riky Mejía MD POINT OF CARE TESTING Final Result INTERFACE SYSTEM Refer to clinic/hospital department [facility] CLIA# [id number] [address] [place] [address] * XR CHEST PA OR AP (04/19/2008 [...] 3:20 AM CDT) ANISOCYTOSIS 1+(A) None Seen [facility] LYMPHOCYTES 15(L) 24 - 44 % [facility] MYELOCYTES 1 <=1 % [facility] MONOCYTE 4 4 - 10 % [facility] NEUTROPHILS, SEG 73(H) 36 - 66 % [facility] POIKILOCYTES 1+(A) None Seen [facility] PLATELET EST. Normal Normal [facility] BANDS 6 0 - 6 % [facility] POLYCHROMASIA Present(A) None Seen [facility] EOSINOPHILS 1 0 - 3 % [facility] Blood specimen (specimen) 04/19/2008 3:20 AM CDT 04/19/2008 3:20 AM CDT Narrative INTERFACE SYSTEM - 04/19/2008 3:58 AM CDT Differential ordered by policy. us Riky Mejía MD HEMATOLOGY ORDERABLES COM F inal Result INTERFACE SYSTEM Refer to clinic/hospital department [facility] CLIA# [id number] [address] [place] [address] * (ABNORMAL) COMPREHENSIVE METABOLIC PANEL (04/19/2008 3:20 AM CDT) GLUCOSE 138(H) 70 - 110 mg/dL [facility] CHLORIDE 94(L) 95 - 110 mEq/L [facility] ALBUMIN/GLOBULIN RATIO 0.9(L) 1.0 - 2.3 [facility] ALKALINE PHOSPHATASE 209(H) 25 - 100 U/L [facility] SODIUM 136 136 - 145 mEq/L [facility] BILIRUBIN TOTAL 1.6(H) 0.3 - 1.2 mg/dL [facility] TOTAL PROTEIN 5.6(L) 6.3 - 8.2 g/dL [facility] BUN 19(H) 7 - 17 mg/dL [facility] AST 73(H) 8 - 33 U/L [facility] CO2 37(H) 22 - 32 mmol/l [facility] ANION GAP 9 9 - 20 mEq/L [facility] ALBUMIN 2.6(L) 3.5 - 5.0 g/dL [facility] POTASSIUM 3.9 3.5 - 5.0 mEq/L [facility] GLOBULIN (CALC) 3.0 2.4 - 3.9 g/dL [facility] CREATININE 0.5(L) 0.7 - 1.2 mg/dL [facility] CALCIUM 8.6 8.4 - 10.5 mg/dL [facility] OSMOLALITY, CALCULATED 285 275 - 295 mOsm/Kg [facility] ALT 68(H) 4 - 36 IU/L [facility] Blood specimen (specimen) 04/19/2008 3:20 AM CDT 04/19/2008 3:20 AM CDT us Riky Mejía MD CHEMISTRY ORDERABLES Final Result INTERFACE SYSTEM Refer to clinic/hospital department [facility] CLIA# [id number] [address] [place] [address] * (ABNORMAL) CBC WITH DIFFERENTIAL (04/19/2008 3:20 AM CDT) WBC 13.9(H) 4.5 - 11.0 K/ul [facility] MCH 29.1 27.0 - 34.0 pg [facility] HEMATOCRIT 30.7(L) 36.0 - 46.0 % [facility] PLATELETS 390 140 - 440 K/ul [facility] RBC 3.33(L) 4.20 - 5.40 Mil/ul [facility] MCHC 31.6 30.0 - 35.0 g/dL [facility] MPV 10.2 8.9 - 12.8 Fl [facility] MCV 92.2 84.0 - 103.0 Fl [facility] HEMOGLOBIN 9.7(L) 12.0 - 16.0 g/dL [facility] RDW 16.9(H) 11.0 - 14.5 % [facility] Blood specimen (specimen) 04/19/2008 3:20 AM CDT 04/19/2008 3:20 AM CDT Riky Mejía MD HEMATOLOGY ORDERABLES Edite d Performing Organization Address [facility] Phone Number INTERFACE SYSTEM Refer to clinic/hospital department [facility] CLIA# [id number] [address] [place] [address] * POTASSIUM LEVEL (04/18/2008 11:41 PM CDT) POTASSIUM 3.9 3.5 - 5.0 mEq/L [facility] Blood specimen (specimen) 04/18/2008 11:41 PM CDT 04/18/2008 11:41 PM CDT Riky Mejía MD CHEMISTRY ORDERABLES Final Result Performing Organization Address [facility] Phone Number INTERFACE SYSTEM Refer to clinic/hospital department [facility] CLIA# [id number] [address] [place] [address] * POTASSIUM LEVEL (04/18/2008 3:49 PM CDT) POTASSIUM 4.0 3.5 - 5.0 mEq/L [facility] Blood specimen (specimen) 04/18/2008 3:49 PM CDT 04/18/2008 3:49 PM CDT Riky Mejía MD CHEMISTRY ORDERABLES Final Result Performing Organization Address City/[facility] de Phone Number INTERFACE SYSTEM Refer to clinic/hospital department [facility] CLIA# [id number] [address] [place] [address] * (ABNORMAL) POC GLUCOSE (04/18/2008 7:29 AM CDT) Pathologist [facility] GLUCOSE POC 153(H) 60 - 100 mg/dL [facility] Venous blood specimen (specimen) 04/18/2008 7:29 AM CDT 04/19/2008 6:47 AM CDT Riky Mejía MD POINT OF CARE TESTING Final Result Performing Organization Address [facility] de Phone Number INTERFACE SYSTEM Refer to clinic/hospital department [facility] CLIA# [id number] [address] [place] [address] * (ABNORMAL) CBC WITH DIFFERENTIAL (04/18/2008 3:29 AM CDT) [facility] RDW 17.0(H) 11.0 - 14.5 % [facility] BASOPHILS ABSOLUTE 0.2 0.0 - 0.2 K/ul [facility] BASOPHILS 1.0 0.0 - 1.0 % [facility] WBC 14.5(H) 4.5 - 11.0 K/ul [facility] MCH 29.0 27.0 - 34.0 pg [facility] MONOCYTE ABSOLUTE 1.1(H) 0.1 - 0.6 K/ul [facility] MONOCYTES 7.3 2.0 - 10.0 % [facility] HEMATOCRIT 30.5(L) 36.0 - 46.0 % [facility] NEUTROPHIL ABSOLUTE 12.1(H) 2.0 - 8.0 K/ul [facility] NEUTROPHILS 83.1(H) 42.2 - 75.2 % [facility] PLATELETS 332 140 - 440 K/ul [facility] RBC 3.31(L) 4.20 - 5.40 Mil/ul [facility] MCHC 31.5 30.0 - 35.0 g/dL [facility] EOSINOPHILS 1.3 0.0 - 7.0 % [facility] PERIPHERAL BLOOD SMEAR REVIEW Automated Diff [facility] EOSINOPHIL ABSOLUTE 0.2 0.0 - 0.7 K/ul [facility] MCV 92.1 84.0 - 103.0 Fl [facility] LYMPHOCYTES 7.3(L) 24.0 - 44.0 % [facility] MPV 10.3 8.9 - 12.8 Fl [facility] LYMPHOCYTE ABSOLUTE 1.1(L) 1.2 - 4.0 K/ul [facility] HEMOGLOBIN 9.6(L) 12.0 - 16.0 g/dL [facility] Blood specimen (specimen) 04/18/2008 3:29 AM CDT 04/18/2008 3:35 AM CDT us Riky Mejía MD HEMATOLOGY ORDERABLES Edite d INTERFACE SYSTEM Refer to clinic/hospital department [facility] CLIA# [id number] [address] [place] [address] * (ABNORMAL) COMPREHENSIVE METABOLIC PANEL (04/18/2008 3:29 AM CDT) AST 133(H) 8 - 33 U/L [facility] ALBUMIN/GLOBULIN RATIO 0.9(L) 1.0 - 2.3 [facility] POTASSIUM 4.1 3.5 - 5.0 mEq/L [facility] ANION GAP 6(L) 9 - 20 mEq/L [facility] ALBUMIN 2.4(L) 3.5 - 5.0 g/dL [facility] CREATININE 0.4(L) 0.7 - 1.2 mg/dL [facility] ALT 75(H) 4 - 36 IU/L [facility] CALCIUM 8.6 8.4 - 10.5 mg/dL [facility] GLUCOSE 134(H) 70 - 110 mg/dL [facility] ALKALINE PHOSPHATASE 167(H) 25 - 100 U/L [facility] CHLORIDE 96 95 - 110 mEq/L [facility] OSMOLALITY, CALCULATED 287 275 - 295 mOsm/Kg [facility] GLOBULIN (CALC) 2.8 2.4 - 3.9 g/dL [facility] TOTAL PROTEIN 5.2(L) 6.3 - 8.2 g/dL [facility] SODIUM 137 136 - 145 mEq/L [facility] BILIRUBIN TOTAL 2.1(H) 0.3 - 1.2 mg/dL [facility] CO2 39(H) 22 - 32 mmol/l [facility] BUN 20(H) 7 - 17 mg/dL [facility] Blood specimen (specimen) 04/18/2008 3:29 AM CDT 04/18/2008 3:35 AM CDT us Riky Mejía MD CHEMISTRY ORDERABLES Final Result Performing Organization Address [facility] de Phone Number INTERFACE SYSTEM Refer to clinic/hospital department [facility] CLIA# [id number] [address] [place] [address] * POTASSIUM LEVEL (04/17/2008 6:15 PM CDT) POTASSIUM 3.8 3.5 - 5.0 mEq/L [facility] Blood specimen (specimen) 04/17/2008 6:15 PM CDT 04/17/2008 6:19 PM CDT Narrative INTERFACE SYSTEM - 04/17/2008 6:44 PM CDT stat us Riky Mejía MD CHEMISTRY ORDERABLES Final Result Performing Organization Address City/[facility] de Phone Number INTERFACE SYSTEM Refer to clinic/hospital department [facility] CLIA# [id number] [address] [place] [address] * (ABNORMAL) POC GLUCOSE (04/17/2008 6:10 PM CDT) GLUCOSE POC 103(H) 60 - 100 mg/dL [facility] Venous blood specimen (specimen) 04/17/2008 6:10 PM CDT 04/18/2008 7:19 AM CDT Riky Mejía MD POINT OF CARE TESTING Final Result Performing Organization Address [facility] de Phone Number INTERFACE SYSTEM Refer to clinic/hospital department [facility] CLIA# [id number] [facility] [place] [address] * (ABNORMAL) POC GLUCOSE (04/17/2008 8:18 AM CDT) GLUCOSE POC 149(H) 60 - 100 mg/dL [facility] Venous blood specimen (specimen) 04/17/2008 8:18 AM CDT 04/18/2008 7:18 AM CDT Riky Mejía MD POINT OF CARE TESTING Final Result Performing Organization Address [facility] de Phone Number INTERFACE SYSTEM Refer to clinic/hospital department [facility] CLIA# [id number] [facility] [place] [address] * (ABNORMAL) POC ISTAT EG 7+ (04/17/2008 5:31 AM CDT) SODIUM 138 138 - 146 mEq/L [facility] PH 7.49(H) 7.35 - 7.45 Unit [facility] PO2 TEMP CORRECT 92 80 - 105 mmHg [facility] O2 SATURATION 98 95 - 98 % [facility] SPECIMEN TYPE Arterial [facility] Comment: Test Performed By [id number] Tidal volume: 450 PEEP: 08 Rate: 10 Pulse OX: 100 Hemoglobin calculated from Hematocrit result PCO2 TEMP CORRECT 50(H) 35 - 45 mmHg [facility] POTASSIUM 3.6 3.5 - 4.9 mEq/L [facility] HEMOGLOBIN POC 9.5 +/-3 g/dL 12.0 - 16.0 g/dL [facility] PH TEMP CORRECT 7.49(H) 7.35 - 7.45 Unit [facility] TCO2 (CALC) POC 40(H) 23 - 27 mmol/l [facility] HCO3 (CALC) POC 38.0(H) 22.0 - 26.0 mmol/l [facility] FIO2 30 [facility] HEMATOCRIT ABG 28(L) 38 - 51 % [facility] PO2 92 80 - 105 mmHg [facility] CALCIUM IONIZED 1.04(L) 1.12 - 1.32 mmol/l [facility] PCO2 POC 50(H) 35 - 45 mmHg [facility] BASE EXCESS 15(H) -2 - 3 mmol/l [facility] Arterial blood specimen (specimen) 04/17/2008 5:31 AM CDT 04/17/2008 6:05 AM CDT Riky Mejía MD POINT OF CARE TESTING COM F inal Result INTERFACE SYSTEM Refer to clinic/hospital department [facility]# [id number] [address] [place] [address] * (ABNORMAL) POC ISTAT EG 7+ (04/17/2008 4:22 AM CDT) PCO2 POC 52(H) 35 - 45 mmHg [facility] BASE EXCESS 19(H) -2 - 3 mmol/l [facility] SODIUM 137(L) 138 - 146 mEq/L [facility] PH 7.51(H) 7.35 - 7.45 Unit [facility] PO2 TEMP CORRECT 448(H) 80 - 105 mmHg [facility] O2 SATURATION 100(H) 95 - 98 % [facility] SPECIMEN TYPE Arterial [facility] Comment: Test Performed By [id number] Tidal volume: 500 PEEP: 08 Rate: 12 Pulse OX: 100 Hemoglobin calculated from Hematocrit result PCO2 TEMP CORRECT 52(H) 35 - 45 mmHg [facility] POTASSIUM 3.7 3.5 - 4.9 mEq/L [facility] HEMOGLOBIN POC 10.2 +/-3 g/dL 12.0 - 16.0 g/dL [facility] PH TEMP CORRECT 7.51(H) 7.35 - 7.45 Unit [facility] TCO2 (CALC) POC 44(H) 23 - 27 mmol/l [facility] HCO3 (CALC) POC 41.9(H) 22.0 - 26.0 mmol/l [facility] FIO2 30 [facility] HEMATOCRIT ABG 30(L) 38 - 51 % [facility] PO2 448(H) 80 - 105 mmHg [facility] CALCIUM IONIZED 1.01(L) 1.12 - 1.32 mmol/l [facility] Arterial blood specimen (specimen) 04/17/2008 4:22 AM CDT 04/17/2008 5:21 AM CDT us Riky Mejía MD POINT OF CARE TESTING COM F inal Result INTERFACE SYSTEM Refer to clinic/hospital department [facility] CLIA# [id number] [address] [place] [address] * (ABNORMAL) CBC WITH DIFFERENTIAL (04/17/2008 2:07 AM CDT) BASOPHILS ABSOLUTE 0.1 0.0 - 0.2 K/ul [facility] BASOPHILS 0.8 0.0 - 1.0 % [facility] HEMOGLOBIN 9.4(L) 12.0 - 16.0 g/dL [facility] RDW 16.7(H) 11.0 - 14.5 % [facility] MONOCYTE ABSOLUTE 1.1(H) 0.1 - 0.6 K/ul [facility] MONOCYTES 7.2 2.0 - 10.0 % [facility] WBC 14.8(H) 4.5 - 11.0 K/ul [facility] MCH 29.2 27.0 - 34.0 pg [facility] NEUTROPHIL ABSOLUTE 12.7(H) 2.0 - 8.0 K/ul [facility] NEUTROPHILS 86.0(H) 42.2 - 75.2 % [facility] HEMATOCRIT 28.9(L) 36.0 - 46.0 % [facility] EOSINOPHILS 1.2 0.0 - 7.0 % [facility] PLATELETS 287 140 - 440 K/ul [facility] PERIPHERAL BLOOD SMEAR REVIEW Automated Diff [facility] EOSINOPHIL ABSOLUTE 0.2 0.0 - 0.7 K/ul [facility] RBC 3.22(L) 4.20 - 5.40 Mil/ul [facility] LYMPHOCYTES 4.8(L) 24.0 - 44.0 % [facility] MCHC 32.5 30.0 - 35.0 g/dL [facility] LYMPHOCYTE ABSOLUTE 0.7(L) 1.2 - 4.0 K/ul [facility] MCV 89.8 84.0 - 103.0 Fl [facility] MPV 10.3 8.9 - 12.8 Fl [facility] Blood specimen (specimen) 04/17/2008 2:07 AM CDT 04/17/2008 2:12 AM CDT Riky Mejía MD HEMATOLOGY ORDERABLES Final Result INTERFACE SYSTEM Refer to clinic/hospital department [facility] CLIA# [id number] [address] [place] [address] * PHOSPHORUS (04/17/2008 2:07 AM CDT) PHOSPHORUS 3.0 2.5 - 4.6 mg/dL [facility] Blood specimen (specimen) 04/17/2008 2:07 AM CDT 04/17/2008 2:12 AM CDT Riky Mejía MD CHEMISTRY ORDERABLES Final Result Performing Organization Address City/State/[facility] Co de Phone Number INTERFACE SYSTEM Refer to clinic/hospital department [facility] CLIA# [id number] [facility] [place] [address] * (ABNORMAL) COMPREHENSIVE METABOLIC PANEL (04/17/2008 2:07 AM CDT) Pathologist [facility] GLOBULIN (CALC) 2.7 2.4 - 3.9 g/dL [facility] SODIUM 141 136 - 145 mEq/L [facility] BILIRUBIN TOTAL 2.6(H) 0.3 - 1.2 mg/dL [facility] TOTAL PROTEIN 4.9(L) 6.3 - 8.2 g/dL [facility] BUN 16 7 - 17 mg/dL [facility] AST 52(H) 8 - 33 U/L [facility] CO2 36(H) 22 - 32 mmol/l [facility] ALBUMIN/GLOBULIN RATIO 0.8(L) 1.0 - 2.3 [facility] ALBUMIN 2.2(L) 3.5 - 5.0 g/dL [facility] POTASSIUM 3.6 3.5 - 5.0 mEq/L [facility] ANION GAP 7(L) 9 - 20 mEq/L [facility] CALCIUM 7.9(L) 8.4 - 10.5 mg/dL [facility] CREATININE 0.5(L) 0.7 - 1.2 mg/dL [facility] ALT 37(H) 4 - 36 IU/L [facility] GLUCOSE 131(H) 70 - 110 mg/dL [facility] CHLORIDE 102 95 - 110 mEq/L [facility] OSMOLALITY, CALCULATED 292 275 - 295 mOsm/Kg [facility] ALKALINE PHOSPHATASE 122(H) 25 - 100 U/L [facility] Blood specimen (specimen) 04/17/2008 2:07 AM CDT 04/17/2008 2:12 AM CDT Riky Mejía MD CHEMISTRY ORDERABLES Final Result Performing Organization Address [facility] Phone Number INTERFACE SYSTEM Refer to clinic/hospital department [facility] CLIA# [id number] [address] [place] [address] * (ABNORMAL) TRIGLYCERIDE (04/17/2008 2:07 AM CDT) TRIGLYCERIDE 326(H) 0 - 150 mg/dL [facility] Comment: On 11/10/2007, [facility] changed the triglyceride reference range to 0-150 mg/dl. This is the recommendation of the National Cholesterol Education Program (NCEP-ATPIII). Blood specimen (specimen) 04/17/2008 2:07 AM CDT 04/17/2008 2:12 AM CDT Riky Mejía MD CHEMISTRY ORDERABLES Final Result Performing Organization Address [facility] Phone Number INTERFACE SYSTEM Refer to clinic/hospital department [facility] CLIA# [id number] [address] [place] [address] * (ABNORMAL) POC GLUCOSE (04/16/2008 6:56 PM CDT) GLUCOSE POC 151(H) 60 - 100 mg/dL [facility] Venous blood specimen (specimen) 04/16/2008 6:56 PM CDT 04/17/2008 12:06 PM CDT Riky Meíja MD POINT OF CARE TESTING Final Result Performing Organization Address [facility] Phone Number INTERFACE SYSTEM Refer to clinic/hospital department [facility] CLIA# [id number] [address] [place] [address] * POTASSIUM LEVEL (04/16/2008 4:43 PM CDT) POTASSIUM 3.7 3.5 - 5.0 mEq/L [facility] Comment: Specimen slightly hemolyzed. Slight icteric. Blood specimen (specimen) 04/16/2008 4:43 PM CDT 04/16/2008 4:43 PM CDT Riky Mejía MD CHEMISTRY ORDERABLES Final Result INTERFACE SYSTEM Refer to clinic/hospital department [facility] CLIA# [id number] [address] [place] [address] * (ABNORMAL) POC ISTAT EG 7+ (04/16/2008 12:11 PM CDT) POTASSIUM 3.5 3.5 - 4.9 mEq/L [facility] SPECIMEN TYPE Arterial [facility] Comment: Test Performed By [id number] Pulse OX: 97 Hemoglobin calculated from Hematocrit result PCO2 TEMP CORRECT 59(H) 35 - 45 mmHg [facility] HEMOGLOBIN POC 9.9 +/-3 g/dL 12.0 - 16.0 g/dL [facility] PH TEMP CORRECT 7.39 7.35 - 7.45 Unit [facility] HCO3 (CALC) POC 35.3(H) 22.0 - 26.0 mmol/l [facility] CALCIUM IONIZED 1.10(L) 1.12 - 1.32 mmol/l [facility] TCO2 (CALC) POC 37(H) 23 - 27 mmol/l [facility] FIO2 40 [facility] PO2 93 80 - 105 mmHg [facility] HEMATOCRIT ABG 29(L) 38 - 51 % [facility] PCO2 POC 59(H) 35 - 45 mmHg [facility] SODIUM 135(L) 138 - 146 mEq/L [facility] BASE EXCESS 10(H) -2 - 3 mmol/l [facility] PH 7.39 7.35 - 7.45 Unit [facility] O2 SATURATION 97 95 - 98 % [facility] PO2 TEMP CORRECT 93 80 - 105 mmHg [facility] Arterial blood specimen (specimen) 04/16/2008 12:11 PM CDT 04/16/2008 12:15 PM CDT Riky Mejía MD POINT OF CARE TESTING COM F inal Result Performing Organization Address City/[facility] de Phone Number INTERFACE SYSTEM Refer to clinic/hospital department [facility] CLIA# [id number] [address] [place] [address] * (ABNORMAL) POC GLUCOSE (04/16/2008 7:40 AM CDT) GLUCOSE POC 166(H) 60 - 100 mg/dL [facility] Venous blood specimen (specimen) 04/16/2008 7:40 AM CDT 04/17/2008 12:06 PM CDT Riky Mejía MD POINT OF CARE TESTING Final Result Performing Organization Address [facility] Phone Number INTERFACE SYSTEM Refer to clinic/hospital department [facility] CLIA# [id number] [address] [place] [address] * (ABNORMAL) POC ISTAT EG 7+ (04/16/2008 5:16 AM CDT) CALCIUM IONIZED 1.12 1.12 - 1.32 mmol/l [facility] PCO2 POC 46(H) 35 - 45 mmHg [facility] BASE EXCESS 10(H) -2 - 3 mmol/l [facility] SODIUM 133(L) 138 - 146 mEq/L [facility] PH 7.47(H) 7.35 - 7.45 Unit [facility] PO2 TEMP CORRECT 83 80 - 105 mmHg [facility] O2 SATURATION 97 95 - 98 % [facility] SPECIMEN TYPE Arterial [facility] Comment: Test Performed By [id number] Tidal volume: 500 PEEP: 06 Rate: 12 Pulse OX: 97 Hemoglobin calculated from Hematocrit result PCO2 TEMP CORRECT 46(H) 35 - 45 mmHg [facility] POTASSIUM 3.0(L) 3.5 - 4.9 mEq/L [facility] HEMOGLOBIN POC 9.2 +/-3 g/dL 12.0 - 16.0 g/dL [facility] PH TEMP CORRECT 7.47(H) 7.35 - 7.45 Unit [facility] TCO2 (CALC) POC 35(H) 23 - 27 mmol/l [facility] HCO3 (CALC) POC 33.4(H) 22.0 - 26.0 mmol/l [facility] FIO2 30 [facility] HEMATOCRIT ABG 27(L) 38 - 51 % [facility] PO2 83 80 - 105 mmHg [facility] Arterial blood specimen (specimen) 04/16/2008 5:16 AM CDT 04/16/2008 5:51 AM CDT us Riky Mejía MD POINT OF CARE TESTING COM F inal Result INTERFACE SYSTEM Refer to clinic/hospital department [facility] CLIA# [id number] [address] [place] [address] * (ABNORMAL) POC GLUCOSE (04/16/2008 5:12 AM CDT) GLUCOSE POC 151(H) 60 - 100 mg/dL [facility] [facility] Venous blood specimen (specimen) 04/16/2008 5:12 AM CDT 04/16/2008 6:51 AM CDT us Riky Mejía MD POINT OF CARE TESTING Final Result INTERFACE SYSTEM Refer to clinic/hospital department [facility] CLIA# [id number] [address] [place] [address] * XR CHEST PA OR AP (04/16/2008 [...] Cardiomediastinal contours are stable. - Dictated By: rFederic Vieyra M.D. Electronically Signed By: Frederic Vieyra [...] CDT) LYMPHOCYTES 5.4(L) 24.0 - 44.0 % [facility] MCHC 33.3 30.0 - 35.0 g/dL [facility] LYMPHOCYTE ABSOLUTE 1.1(L) 1.2 - 4.0 K/ul [facility] MCV 88.4 84.0 - 103.0 Fl [facility] MPV 10.1 8.9 - 12.8 Fl [facility] BASOPHILS ABSOLUTE 0.1 0.0 - 0.2 K/ul [facility] BASOPHILS 0.3 0.0 - 1.0 % [facility] HEMOGLOBIN 9.4(L) 12.0 - 16.0 g/dL [facility] RDW 16.2(H) 11.0 - 14.5 % [facility] MONOCYTE ABSOLUTE 0.7(H) 0.1 - 0.6 K/ul [facility] MONOCYTES 3.3 2.0 - 10.0 % [facility] WBC 19.6(H) 4.5 - 11.0 K/ul [facility] MCH 29.5 27.0 - 34.0 pg [facility] NEUTROPHIL ABSOLUTE 17.6(H) 2.0 - 8.0 K/ul [facility] NEUTROPHILS 89.9(H) 42.2 - 75.2 % [facility] HEMATOCRIT 28.2(L) 36.0 - 46.0 % [facility] EOSINOPHILS 1.1 0.0 - 7.0 % [facility] PLATELETS 292 140 - 440 K/ul [facility] PERIPHERAL BLOOD SMEAR REVIEW Automated Diff [facility] EOSINOPHIL ABSOLUTE 0.2 0.0 - 0.7 K/ul [facility] RBC 3.19(L) 4.20 - 5.40 Mil/ul [facility] Blood specimen (specimen) 04/16/2008 3:20 AM CDT 04/16/2008 3:26 AM CDT us iRky Mejía MD HEMATOLOGY ORDERABLES Final Result INTERFACE SYSTEM Refer to clinic/hospital department [facility] CLIA# [id number] [address] [place] [address] * (ABNORMAL) COMPREHENSIVE METABOLIC PANEL (04/16/2008 3:20 AM CDT) AST 58(H) 8 - 33 U/L [facility] CO2 32 22 - 32 mmol/l [facility] ALBUMIN/GLOBULIN RATIO 0.9(L) 1.0 - 2.3 [facility] ALBUMIN 2.2(L) 3.5 - 5.0 g/dL [facility] POTASSIUM 2.9(AA) 3.5 - 5.0 mEq/L [facility] Comment: Potentially critical/toxic K called by GS to JOCELYNE DILLARD, with verbal read back, at 04/16/08 04:21. ANION GAP 9 9 - 20 mEq/L [facility] CALCIUM 8.2(L) 8.4 - 10.5 mg/dL [facility] CREATININE 0.6(L) 0.7 - 1.2 mg/dL [facility] ALT 37(H) 4 - 36 IU/L [facility] GLUCOSE 148(H) 70 - 110 mg/dL [facility] CHLORIDE 98 95 - 110 mEq/L [facility] OSMOLALITY, CALCULATED 283 275 - 295 mOsm/Kg [facility] ALKALINE PHOSPHATASE 105(H) 25 - 100 U/L [facility] GLOBULIN (CALC) 2.5 2.4 - 3.9 g/dL [facility] SODIUM 136 136 - 145 mEq/L [facility] BILIRUBIN TOTAL 4.4(H) 0.3 - 1.2 mg/dL [facility] TOTAL PROTEIN 4.7(L) 6.3 - 8.2 g/dL [facility] BUN 17 7 - 17 mg/dL [facility] Blood specimen (specimen) 04/16/2008 3:20 AM CDT 04/16/2008 3:26 AM CDT us Riky Mejía MD CHEMISTRY ORDERABLES Final Result Performing Organization Address [facility] Phone Number INTERFACE SYSTEM Refer to clinic/hospital department [facility] CLIA# [id number] [address] [place] [address] * (ABNORMAL) POC GLUCOSE (04/15/2008 6:36 PM CDT) GLUCOSE POC 110(H) 60 - 100 mg/dL [facility] Venous blood specimen (specimen) 04/15/2008 6:36 PM CDT 04/16/2008 6:51 AM CDT us Riky Mejía MD POINT OF CARE TESTING Final Result Performing Organization Address [facility] Phone Number INTERFACE SYSTEM Refer to clinic/hospital department [facility] CLIA# [id number] [address] [place] [address] * (ABNORMAL) HEMOGLOBIN AND HEMATOCRIT (04/15/2008 4:00 PM CDT) HEMOGLOBIN 7.8(L) 12.0 - 16.0 g/dL [facility] HEMATOCRIT 24.1(L) 36.0 - 46.0 % [facility] Blood specimen (specimen) 04/15/2008 4:00 PM CDT 04/15/2008 4:00 PM CDT us Riky Mejía MD HEMATOLOGY ORDERABLES Final Result Performing Organization Address [facility] Phone Number INTERFACE SYSTEM Refer to clinic/hospital department [facility] CLIA# [id number] [address] [place] [address] * (ABNORMAL) VANCOMYCIN LEVEL TROUGH (04/15/2008 9:53 AM CDT) VANCOMYCIN, TROUGH 18.3(H) 5.0 - 15.0 mcg/mL [facility] Blood specimen (specimen) 04/15/2008 9:53 AM CDT 04/15/2008 9:53 AM CDT Riky Mejía MD CHEMISTRY ORDERABLES Final Result Performing Organization Address [facility] Phone Number INTERFACE SYSTEM Refer to clinic/hospital department [facility] CLIA# [id number] [address] [place] [address] * (ABNORMAL) TRIGLYCERIDE (04/15/2008 9:53 AM CDT) TRIGLYCERIDE 435(H) 0 - 150 mg/dL [facility] Comment: On 11/10/2007, [facility] changed the triglyceride reference range to 0-150 mg/dl. This is the recommendation of the National Cholesterol Education Program (NCEP-ATPIII). Blood specimen (specimen) 04/15/2008 9:53 AM CDT 04/15/2008 9:53 AM CDT Riky Mejía MD CHEMISTRY ORDERABLES Final Result Performing Organization Address [facility] Phone Number INTERFACE SYSTEM Refer to clinic/hospital department [facility] CLIA# [id number] [address] [place] [address] * PROTIME-INR (04/15/2008 9:53 AM CDT) PROTIME 15.2 12.8 - 15.8 Secs [facility] Comment:As of 2007 not e change in normal range. INR 1.1 [facility] Comment: Expected Values for INR: [...] Anticoagulation available from the pharmacy [facility] [phone] Blood specimen (specimen) 04/15/2008 9:53 AM CDT 04/15/2008 9:53 AM CDT Riky Mejía MD HEMATOLOGY ORDERABLES Final Result Performing Organization Address [facility] Phone Number INTERFACE SYSTEM Refer to clinic/hospital department [facility] CLIA# [id number] [address] [place] [address] * (ABNORMAL) TRANSFERRIN (04/15/2008 9:53 AM CDT) TRANSFERRIN 59.0(L) 204.0 - 376.0 mg/dL [facility] Comment: Specimen slightly hemolyzed Blood specimen (specimen) 04/15/2008 9:53 AM CDT 04/15/2008 9:53 AM CDT Riky Mejía MD CHEMISTRY ORDERABLES Final Result Performing Organization Address [facility] Phone Number INTERFACE SYSTEM Refer to clinic/hospital [facility] CLIA# [id number] [address] [place] [address] * (ABNORMAL) PREALBUMIN (04/15/2008 9:53 AM CDT) PREALBUMIN <5.0(L) 14.0 - 32.0 mg/dL [facility] Comment: Test Repeated; Results confirmed Blood specimen (specimen) 04/15/2008 9:53 AM CDT 04/15/2008 9:53 AM CDT Riky Mejía MD CHEMISTRY ORDERABLES Final Result Performing Organization Address [facility] Phone Number INTERFACE SYSTEM Refer to clinic/hospital [facility] CLIA# [id number] [address] [place] [address] * PHOSPHORUS (04/15/2008 9:53 AM CDT) PHOSPHORUS 3.9 2.5 - 4.6 mg/dL [facility] Blood specimen (specimen) 04/15/2008 9:53 AM CDT 04/15/2008 9:53 AM CDT us Riky Mejía MD CHEMISTRY ORDERABLES Edited Performing Organization Address [facility] Phone Number INTERFACE SYSTEM Refer to clinic/hospital department [facility] CLIA# [id number] [address] [place] [address] * (ABNORMAL) MAGNESIUM LEVEL (04/15/2008 9:53 AM CDT) MAGNESIUM 1.3(L) 1.7 - 2.4 mg/dL [facility] Blood specimen (specimen) 04/15/2008 9:53 AM CDT 04/15/2008 9:53 AM CDT us Riky Mejía MD CHEMISTRY ORDERABLES Edited Performing Organization Address [facility] de Phone Number INTERFACE SYSTEM Refer to clinic/hospital department [facility] CLIA# [id number] [address] [place] [address] * (ABNORMAL) POC ISTAT EG 7+ (04/15/2008 4:13 AM CDT) PH 7.49(H) 7.35 - 7.45 Unit [facility] PO2 TEMP CORRECT 68(L) 80 - 105 mmHg [facility] O2 SATURATION 94(L) 95 - 98 % [facility] SPECIMEN TYPE Arterial [facility] Comment: Test Performed By [id number] Tidal volume: 500 PEEP: 06 Rate: 12 Pulse OX: 98 Hemoglobin calculated from Hematocrit result PCO2 TEMP CORRECT 48(H) 35 - 45 mmHg [facility] POTASSIUM 3.4(L) 3.5 - 4.9 mEq/L [facility] HEMOGLOBIN POC 9.2 +/-3 g/dL 12.0 - 16.0 g/dL [facility] PH TEMP CORRECT 7.49(H) 7.35 - 7.45 Unit [facility] TCO2 (CALC) POC 38(H) 23 - 27 mmol/l [facility] HCO3 (CALC) POC 36.7(H) 22.0 - 26.0 mmol/l [facility] FIO2 30 [facility] HEMATOCRIT ABG 27(L) 38 - 51 % [facility] PO2 68(L) 80 - 105 mmHg [facility] CALCIUM IONIZED 1.06(L) 1.12 - 1.32 mmol/l [facility] PCO2 POC 48(H) 35 - 45 mmHg [facility] BASE EXCESS 13(H) -2 - 3 mmol/l [facility] SODIUM 133(L) 138 - 146 mEq/L [facility] Arterial blood specimen (specimen) 04/15/2008 4:13 AM CDT 04/15/2008 4:27 AM CDT Riky Mejía MD POINT OF CARE TESTING COM F inal Result INTERFACE SYSTEM Refer to clinic/hospital department [facility]# [id number] [address] [place] [address] * XR CHEST PA OR AP (04/15/2008 [...] By: April Chaparro M.D. Date Signed: 04/15/08 [facility] Procedure Note April Chaparro MD - 04/15/2008 Exam: Chest - Portable Date/Time of Exam: Apr 15, 2008 4:08:09 AM History: Postoperative. Findings: Comparison study 04/14/08. Life support lines stable in position.Decreased lung volumes with bibasilar plate atelectasis. Cardiac silhouette stable and within normallimits. Impression: No significant change. - Dictated By: April Chaparro M.D. Electronically Signed By: April Chaparro M.D. Date Signed: 04/15/08 [facility] Heriberto Carrera MD DIAGNOSTIC IMAGING ORDERABLES Fi nal Result * (ABNORMAL) COMPREHENSIVE METABOLIC PANEL (04/15/2008 3:17 AM CDT) CALCIUM 7.9(L) 8.4 - 10.5 mg/dL [facility] CREATININE 0.6(L) 0.7 - 1.2 mg/dL [facility] ALT 40(H) 4 - 36 IU/L [facility] GLUCOSE 106 70 - 110 mg/dL [facility] CHLORIDE 95 95 - 110 mEq/L [facility] OSMOLALITY, CALCULATED 285 275 - 295 mOsm/Kg [facility] ALKALINE PHOSPHATASE 102(H) 25 - 100 U/L [facility] GLOBULIN (CALC) 2.5 2.4 - 3.9 g/dL [facility] SODIUM 137 136 - 145 mEq/L [facility] BILIRUBIN TOTAL 4.3(H) 0.3 - 1.2 mg/dL [facility] Comment: slightly icteric TOTAL PROTEIN 4.5(L) 6.3 - 8.2 g/dL [facility] BUN 20(H) 7 - 17 mg/dL [facility] AST 73(H) 8 - 33 U/L [facility] CO2 36(H) 22 - 32 mmol/l [facility] ALBUMIN/GLOBULIN RATIO 0.8(L) 1.0 - 2.3 [facility] ALBUMIN 2.0(L) 3.5 - 5.0 g/dL [facility] POTASSIUM 3.7 3.5 - 5.0 mEq/L [facility] ANION GAP 10 9 - 20 mEq/L [facility] Blood specimen (specimen) 04/15/2008 3:17 AM CDT 04/15/2008 3:36 AM CDT us Petr Carrillo MD CHEMISTRY ORDERABLES Final Re sult INTERFACE SYSTEM Refer to clinic/hospital department [facility] CLIA# [id number] [address] [place] [address] * (ABNORMAL) CBC WITH DIFFERENTIAL (04/15/2008 3:17 AM CDT) NEUTROPHIL ABSOLUTE 15.2(H) 2.0 - 8.0 K/ul [facility] HEMATOCRIT 26.7(L) 36.0 - 46.0 % [facility] PLATELETS 428 140 - 440 K/ul [facility] EOSINOPHIL ABSOLUTE 0.2 0.0 - 0.7 K/ul [facility] EOSINOPHILS 0.8 0.0 - 7.0 % [facility] PERIPHERAL BLOOD SMEAR REVIEW Automated Diff [facility] RBC 3.02(L) 4.20 - 5.40 Mil/ul [facility] MCHC 32.2 30.0 - 35.0 g/dL [facility] LYMPHOCYTE ABSOLUTE 1.3 1.2 - 4.0 K/ul [facility] LYMPHOCYTES 7.4(L) 24.0 - 44.0 % [facility] MCV 88.4 84.0 - 103.0 Fl [facility] BASOPHILS 0.5 0.0 - 1.0 % [facility] MPV 10.1 8.9 - 12.8 Fl [facility] BASOPHILS ABSOLUTE 0.1 0.0 - 0.2 K/ul [facility] HEMOGLOBIN 8.6(L) 12.0 - 16.0 g/dL [facility] MONOCYTES 5.6 2.0 - 10.0 % [facility] RDW 16.7(H) 11.0 - 14.5 % [facility] MONOCYTE ABSOLUTE 1.0(H) 0.1 - 0.6 K/ul [facility] WBC 17.7(H) 4.5 - 11.0 K/ul [facility] NEUTROPHILS 85.7(H) 42.2 - 75.2 % [facility] MCH 28.5 27.0 - 34.0 pg [facility] Blood specimen (specimen) 04/15/2008 3:17 AM CDT 04/15/2008 3:40 AM CDT us Petr Carrillo MD HEMATOLOGY ORDERABLES Final R esult INTERFACE SYSTEM Refer to clinic/hospital department [facility]# [id number] [address] [place] [address] * XR CHEST PA OR AP (04/14/2008 [...] Ari Ly Jr., M.D. Date Signed: 04/14/08 [facility] Procedure Note Ari Ly Jr. - [...] Ari Ly Jr., M.D. Date Signed: 04/14/08 [facility] us Riky Mejía MD DIAGNOSTIC IMAGING ORDERABL ES Final Result * (ABNORMAL) POC ISTAT EG 7+ (04/14/2008 3:23 AM CDT) SODIUM 134(L) 138 - 146 mEq/L [facility] PH 7.60(AA) 7.35 - 7.45 Unit [facility] PO2 TEMP CORRECT 92 80 - 105 mmHg [facility] O2 SATURATION 98 95 - 98 % [facility] SPECIMEN TYPE Arterial [facility] Comment: Test Performed By [id number] Critical result performed at the point of care. Pulse OX: 98 Hemoglobin calculated from Hematocrit result PCO2 TEMP CORRECT 41 35 - 45 mmHg [facility] POTASSIUM 3.9 3.5 - 4.9 mEq/L [facility] HEMOGLOBIN POC 10.9 +/-3 g/dL 12.0 - 16.0 g/dL [facility] PH TEMP CORRECT 7.60(AA) 7.35 - 7.45 Unit [facility] TCO2 (CALC) POC 41(H) 23 - 27 mmol/l [facility] HCO3 (CALC) POC 39.9(H) 22.0 - 26.0 mmol/l [facility] FIO2 45 [facility] HEMATOCRIT ABG 32(L) 38 - 51 % [facility] PO2 92 80 - 105 mmHg [facility] CALCIUM IONIZED 1.03(L) 1.12 - 1.32 mmol/l [facility] PCO2 POC 41 35 - 45 mmHg [facility] BASE EXCESS 18(H) -2 - 3 mmol/l [facility] Arterial blood specimen (specimen) 04/14/2008 3:23 AM CDT 04/14/2008 5:44 AM CDT us Riky Mejía MD POINT OF CARE TESTING COM F inal Result INTERFACE SYSTEM Refer to clinic/hospital department [facility] CLIA# [id number] [address] [place] [address] * (ABNORMAL) DIFFERENTIAL, MANUAL (04/14/2008 1:37 AM CDT) NEUTROPHILS, SEG 57 36 - 66 % [facility] METAMYELOCYTE 1 0 - 1 % [facility] POIKILOCYTES 1+(A) None Seen [facility] MONOCYTE 5 4 - 10 % [facility] RBC MORPHOLOGY Abnormal(A ) Normal [facility] BANDS 27(H) 0 - 6 % [facility] POLYCHROMASIA Present(A) None Seen [facility] MYELOCYTES 1 <=1 % [facility] EOSINOPHILS 1 0 - 3 % [facility] ANISOCYTOSIS 1+(A) None Seen [facility] LYMPHOCYTES 8(L) 24 - 44 % [facility] PLATELET EST. Normal Normal [facility] Comment: OCC PLATELET CLUMPS NOTED ON REVIEW OF SMEAR. Blood specimen (specimen) 04/14/2008 1:37 AM CDT 04/14/2008 1:40 AM CDT Narrative INTERFACE SYSTEM - 04/14/2008 2:01 AM CDT Differential ordered by policy. Riky Mejía MD HEMATOLOGY ORDERABLES COM F inal Result INTERFACE SYSTEM Refer to clinic/hospital department [facility] CLIA# [id number] [address] [place] [address] * (ABNORMAL) BASIC METABOLIC PANEL (04/14/2008 1:37 AM CDT) CALCIUM 8.1(L) 8.4 - 10.5 mg/dL [facility] GLUCOSE 108 70 - 110 mg/dL [facility] CHLORIDE 95 95 - 110 mEq/L [facility] ANION GAP 8(L) 9 - 20 mEq/L [facility] SODIUM 137 136 - 145 mEq/L [facility] BUN 26(H) 7 - 17 mg/dL [facility] CO2 38(H) 22 - 32 mmol/l [facility] POTASSIUM 4.1 3.5 - 5.0 mEq/L [facility] OSMOLALITY, CALCULATED 288 275 - 295 mOsm/Kg [facility] CREATININE 0.8 0.7 - 1.2 mg/dL [facility] Blood specimen (specimen) 04/14/2008 1:37 AM CDT 04/14/2008 1:40 AM CDT us Riky Mejía MD CHEMISTRY ORDERABLES Final Result Performing Organization Address [facility] Phone Number INTERFACE SYSTEM Refer to clinic/hospital department [facility] CLIA# [id number] [address] [place] [address] * (ABNORMAL) CBC WITH DIFFERENTIAL (04/14/2008 1:37 AM CDT) HEMATOCRIT 33.4(L) 36.0 - 46.0 % [facility] PLATELETS 429 140 - 440 K/ul [facility] RBC 3.77(L) 4.20 - 5.40 Mil/ul [facility] MCHC 33.2 30.0 - 35.0 g/dL [facility] MPV 10.1 8.9 - 12.8 Fl [facility] MCV 88.6 84.0 - 103.0 Fl [facility] HEMOGLOBIN 11.1(L) 12.0 - 16.0 g/dL [facility] RDW 16.4(H) 11.0 - 14.5 % [facility] WBC 16.6(H) 4.5 - 11.0 K/ul [facility] MCH 29.4 27.0 - 34.0 pg [facility] Blood specimen (specimen) 04/14/2008 1:37 AM CDT 04/14/2008 1:40 AM CDT us Riky Mejía MD HEMATOLOGY ORDERABLES Edite d Performing Organization Address [facility] de Phone Number INTERFACE SYSTEM Refer to clinic/hospital department [facility] CLIA# [id number] [address] [place] [address] * LACTIC ACID (04/13/2008 9:12 PM CDT) LACTIC ACID 1.4 0.5 - 2.2 mEq/L [facility] Blood specimen (specimen) 04/13/2008 9:12 PM CDT 04/13/2008 9:18 PM CDT us Riky Mejía MD CHEMISTRY ORDERABLES Final Result INTERFACE SYSTEM Refer to clinic/hospital department [facility] CLIA# [id number] [facility] [place] [address] * (ABNORMAL) POC ISTAT EG 7+ (04/13/2008 8:41 PM CDT) Pathologist [facility] POTASSIUM 3.8 3.5 - 4.9 mEq/L [facility] PH TEMP CORRECT 7.51(H) 7.35 - 7.45 Unit [facility] HCO3 (CALC) POC 43.9(H) 22.0 - 26.0 mmol/l [facility] TCO2 (CALC) POC 46(H) 23 - 27 mmol/l [facility] FIO2 55 [facility] PO2 129(H) 80 - 105 mmHg [facility] CALCIUM IONIZED 1.05(L) 1.12 - 1.32 mmol/l [facility] HEMATOCRIT ABG 36(L) 38 - 51 % [facility] PCO2 POC 56(H) 35 - 45 mmHg [facility] SODIUM 135(L) 138 - 146 mEq/L [facility] BASE EXCESS 21(H) -2 - 3 mmol/l [facility] PH 7.51(H) 7.35 - 7.45 Unit [facility] O2 SATURATION 99(H) 95 - 98 % [facility] PO2 TEMP CORRECT 129(H) 80 - 105 mmHg [facility] SPECIMEN TYPE Arterial [facility] Comment: Test Performed By [id number] PEEP: 10 Rate: 12 Pulse OX: 100 Hemoglobin calculated from Hematocrit result PCO2 TEMP CORRECT 56(H) 35 - 45 mmHg [facility] HEMOGLOBIN POC 12.2 +/-3 g/dL 12.0 - 16.0 g/dL [facility] Arterial blood specimen (specimen) 04/13/2008 8:41 PM CDT 04/13/2008 8:44 PM CDT Riky Mejía MD POINT OF CARE TESTING COM F inal Result Performing Organization Address [facility] de Phone Number INTERFACE SYSTEM Refer to clinic/hospital department [facility] CLIA# [id number] [address] [place] [address] * (ABNORMAL) POC GLUCOSE (04/13/2008 8:33 PM CDT) GLUCOSE POC 115(H) 60 - 100 mg/dL [facility] Venous blood specimen (specimen) 04/13/2008 8:33 PM CDT 04/14/2008 5:56 AM CDT Riky Mejía MD POINT OF CARE TESTING Final Result Performing Organization Address [facility] de Phone Number INTERFACE SYSTEM Refer to clinic/hospital department [facility] CLIA# [id number] [address] [place] [address] * (ABNORMAL) BASIC METABOLIC PANEL (04/13/2008 7:58 PM CDT) GLUCOSE 118(H) 70 - 110 mg/dL [facility] CHLORIDE 94(L) 95 - 110 mEq/L [facility] ANION GAP <9 9 - 20 mEq/L [facility] SODIUM 139 136 - 145 mEq/L [facility] BUN 17 7 - 17 mg/dL [facility] CO2 >40(H) 22 - 32 mmol/l [facility] POTASSIUM 3.9 3.5 - 5.0 mEq/L [facility] OSMOLALITY, CALCULATED 288 275 - 295 mOsm/Kg [facility] CREATININE 0.5(L) 0.7 - 1.2 mg/dL [facility] CALCIUM 8.4 8.4 - 10.5 mg/dL [facility] Blood specimen (specimen) 04/13/2008 7:58 PM CDT 04/13/2008 8:01 PM CDT Riky Mejía MD CHEMISTRY ORDERABLES Final Result INTERFACE SYSTEM Refer to clinic/hospital department [facility] CLIA# [id number] [place] [address] * (ABNORMAL) CBC WITH DIFFERENTIAL (04/13/2008 7:58 PM CDT) MCV 91.0 84.0 - 103.0 Fl [facility] MPV 10.3 8.9 - 12.8 Fl [facility] BASOPHILS ABSOLUTE 0.1 0.0 - 0.2 K/ul [facility] BASOPHILS 0.4 0.0 - 1.0 % [facility] HEMOGLOBIN 11.6(L) 12.0 - 16.0 g/dL [facility] RDW 16.6(H) 11.0 - 14.5 % [facility] MONOCYTE ABSOLUTE 0.7(H) 0.1 - 0.6 K/ul [facility] MONOCYTES 4.2 2.0 - 10.0 % [facility] WBC 16.1(H) 4.5 - 11.0 K/ul [facility] MCH 29.7 27.0 - 34.0 pg [facility] NEUTROPHIL ABSOLUTE 14.1(H) 2.0 - 8.0 K/ul [facility] NEUTROPHILS 87.4(H) 42.2 - 75.2 % [facility] HEMATOCRIT 35.6(L) 36.0 - 46.0 % [facility] EOSINOPHILS 0.9 0.0 - 7.0 % [facility] PLATELETS 430 140 - 440 K/ul [facility] EOSINOPHIL ABSOLUTE 0.1 0.0 - 0.7 K/ul [facility] RBC 3.91(L) 4.20 - 5.40 Mil/ul [facility] LYMPHOCYTES 7.1(L) 24.0 - 44.0 % [facility] MCHC 32.6 30.0 - 35.0 g/dL [facility] LYMPHOCYTE ABSOLUTE 1.1(L) 1.2 - 4.0 K/ul [facility] Blood specimen (specimen) 04/13/2008 7:58 PM CDT 04/13/2008 8:01 PM CDT us Riky Mejía MD HEMATOLOGY ORDERABLES Final Result Performing Organization Address City/State/[facility] Phone Number INTERFACE SYSTEM Refer to clinic/hospital department [facility]# [id number] [address] [place] [id number] * XR CHEST PA OR AP (04/13/2008 [...] radiopaque tubes and lines that overlie the [id number]. There is vascular congestion, and there is [...] radiopaque tubes and lines that overlie the [id number]. There is vascular congestion,and there is likely [...] LAB PO2 138(H) 80 - 105 mmHg [facility] CALCIUM IONIZED 1.06(L) 1.12 - 1.32 mmol/l [facility] HEMATOCRIT ABG 29(L) 38 - 51 % [facility] SPECIMEN TYPE Arterial [facility] Comment: Test Performed By [id number] Critical result performed at the point of care. Sample not collected by [facility] Hemoglobin calculated from Hematocrit result PCO2 POC 39 35 - 45 mmHg [facility] SODIUM 134(L) 138 - 146 mEq/L [facility] BASE EXCESS 27(H) -2 - 3 mmol/l [facility] PH 7.69(AA) 7.35 - 7.45 Unit [facility] O2 SATURATION 100(H) 95 - 98 % [facility] PO2 TEMP CORRECT 144(H) 80 - 105 mmHg [facility] FIO2 100 [facility] HEMOGLOBIN POC 9.9 +/-3 g/dL 12.0 - 16.0 g/dL [facility] PCO2 TEMP CORRECT 41 35 - 45 mmHg [facility] POTASSIUM 3.3(L) 3.5 - 4.9 mEq/L [facility] PH TEMP CORRECT 7.67(AA) 7.35 - 7.45 Unit [facility] HCO3 (CALC) POC 47.0(H) 22.0 - 26.0 mmol/l [facility] TCO2 (CALC) POC 48(H) 23 - 27 mmol/l [facility] Arterial blood specimen (specimen) 04/13/2008 6:02 PM CDT 04/13/2008 6:19 PM CDT Riky Mejía MD POINT OF CARE TESTING COM F inal Result Performing Organization Address [facility] de Phone Number INTERFACE SYSTEM Refer to clinic/hospital department [facility] CLIA# [id number] [address] [place] [address] * LACTIC ACID (04/13/2008 5:36 PM CDT) [facility] LACTIC ACID 1.5 0.5 - 2.2 mEq/L [facility] Blood specimen (specimen) 04/13/2008 5:36 PM CDT 04/13/2008 5:36 PM CDT Riky Mejía MD CHEMISTRY ORDERABLES Final Result Performing Organization Address [facility] Phone Number INTERFACE SYSTEM Refer to clinic/hospital department [facility] CLIA# [id number] [facility] [place] [address] * TYPE AND CROSSMATCH (04/13/2008 5:34 PM CDT) [facility] BLOOD BANK PRODUCT INTERFACE SYSTEM Blood specimen (specimen) 04/13/2008 5:34 PM CDT 04/13/2008 5:34 PM CDT Riky Mejía MD BLOOD BANK ORDERABLES Final Result Performing Organization Address [facility] de Phone Number INTERFACE SYSTEM Refer to clinic/hospital department * ANTIBODY SCREEN (04/13/2008 5:34 PM CDT) Pathologist [facility] ANTIBODY SCREEN Negative [facility] Blood specimen (specimen) 04/13/2008 5:34 PM CDT 04/13/2008 5:34 PM CDT Riky Mejía MD BLOOD BANK ORDERABLES Edite d Performing Organization Address [facility] de Phone Number INTERFACE SYSTEM Refer to clinic/hospital department [facility] CLIA# [id number] [address] [place] [address] * ABORH TYPING (04/13/2008 5:34 PM CDT) Pathologist [facility] ABO/RH TYPE O Positive [facility] Blood specimen (specimen) 04/13/2008 5:34 PM CDT 04/13/2008 5:34 PM CDT us Riky Mejía MD BLOOD BANK ORDERABLES Final Result Performing Organization Address [facility] Phone Number INTERFACE SYSTEM Refer to clinic/hospital department [facility] CLIA# [id number] [address] [place] [address] * (ABNORMAL) BASIC METABOLIC PANEL (04/13/2008 5:29 PM CDT) CREATININE 0.6(L) 0.7 - 1.2 mg/dL [facility] CALCIUM 8.4 8.4 - 10.5 mg/dL [facility] GLUCOSE 118(H) 70 - 110 mg/dL [facility] CHLORIDE 91(L) 95 - 110 mEq/L [facility] SODIUM 141 136 - 145 mEq/L [facility] ANION GAP <14 9 - 20 mEq/L [facility] BUN 16 7 - 17 mg/dL [facility] CO2 >40(H) 22 - 32 mmol/l [facility] OSMOLALITY, CALCULATED 291 275 - 295 mOsm/Kg [facility] POTASSIUM 3.7 3.5 - 5.0 mEq/L [facility] Blood specimen (specimen) 04/13/2008 5:29 PM CDT 04/13/2008 5:30 PM CDT Narrative INTERFACE SYSTEM - 04/13/2008 6:20 PM CDT OR 9 us Riky Mejía MD CHEMISTRY ORDERABLES Final Result INTERFACE SYSTEM Refer to clinic/hospital department [facility] CLIA# [id number] [address] [place] [address] * PT AND APTT (04/13/2008 5:29 PM CDT) INR 1.1 [facility] Comment: Expected Values for INR: [...] from the pharmacy Jolene Ramirez Pharm D. [phone] PTT 33.1 22.5 - 36.5 Secs [facility] Comment: Therapeutic Range: Hi-level PE/DVT heparin protocol 80.1 -95.0 sec Lo-level PE/DVT heparin protocol 67.1 - 80.0 sec Cardiac Heparin Protocol 67.1 - 85.0 sec Neuro Heparin Protocol 67.1 - 80.0 sec As of 09/25/2007 note change in APTT Normal Range. PROTIME 15.3 12.8 - 15.8 Secs [facility] Comment:As of 2007 not e change in normal range. Blood specimen (specimen) 04/13/2008 5:29 PM CDT 04/13/2008 5:30 PM CDT Narrative INTERFACE SYSTEM - 04/13/2008 5:48 PM CDT OR 9 us Riky Mejía MD HEMATOLOGY ORDERABLES Edite d INTERFACE SYSTEM Refer to clinic/hospital department [facility] CLIA# [id number] [facility] [place] [place] [address] * (ABNORMAL) CBC WITH DIFFERENTIAL (04/13/2008 5:29 PM CDT) MCV 90.1 84.0 - 103.0 Fl [facility] BASOPHILS 0.3 0.0 - 1.0 % [facility] MPV 10.2 8.9 - 12.8 Fl [facility] BASOPHILS ABSOLUTE 0.0 0.0 - 0.2 K/ul [facility] HEMOGLOBIN 9.4(L) 12.0 - 16.0 g/dL [facility] MONOCYTES 4.3 2.0 - 10.0 % [facility] RDW 17.1(H) 11.0 - 14.5 % [facility] MONOCYTE ABSOLUTE 0.5 0.1 - 0.6 K/ul [facility] WBC 11.8(H) 4.5 - 11.0 K/ul [facility] NEUTROPHILS 81.9(H) 42.2 - 75.2 % [facility] MCH 29.0 27.0 - 34.0 pg [facility] NEUTROPHIL ABSOLUTE 9.7(H) 2.0 - 8.0 K/ul [facility] HEMATOCRIT 29.2(L) 36.0 - 46.0 % [facility] PLATELETS 414 140 - 440 K/ul [facility] EOSINOPHIL ABSOLUTE 0.2 0.0 - 0.7 K/ul [facility] EOSINOPHILS 1.4 0.0 - 7.0 % [facility] RBC 3.24(L) 4.20 - 5.40 Mil/ul [facility] MCHC 32.2 30.0 - 35.0 g/dL [facility] LYMPHOCYTE ABSOLUTE 1.4 1.2 - 4.0 K/ul [facility] LYMPHOCYTES 12.1(L) 24.0 - 44.0 % [facility] Blood specimen (specimen) 04/13/2008 5:29 PM CDT 04/13/2008 5:29 PM CDT Narrative INTERFACE SYSTEM - 04/13/2008 5:35 PM CDT OR 9 us Riky Mejía MD HEMATOLOGY ORDERABLES Final Result INTERFACE SYSTEM Refer to clinic/hospital department [facility] CLIA# [id number] [address] [place] [address] * (ABNORMAL) POC ISTAT EG 7+ (04/13/2008 5:26 PM CDT) PH 7.68(AA) 7.35 - 7.45 Unit [facility] O2 SATURATION 100(H) 95 - 98 % [facility] PO2 TEMP CORRECT 174(H) 80 - 105 mmHg [facility] FIO2 100 [facility] HEMOGLOBIN POC 9.5 +/-3 g/dL 12.0 - 16.0 g/dL [facility] PCO2 TEMP CORRECT 47(H) 35 - 45 mmHg [facility] POTASSIUM 3.5 3.5 - 4.9 mEq/L [facility] PH TEMP CORRECT 7.67(AA) 7.35 - 7.45 Unit [facility] HCO3 (CALC) POC 53.2(H) 22.0 - 26.0 mmol/l [facility] TCO2 (CALC) POC >50(H) 23 - 27 mmol/l [facility] TEMPERATURE 37.8 DegC [facility] PO2 170(H) 80 - 105 mmHg [facility] CALCIUM IONIZED 0.95(L) 1.12 - 1.32 mmol/l [facility] HEMATOCRIT ABG 28(L) 38 - 51 % [facility] SPECIMEN TYPE Arterial [facility] Comment: Test Performed By [id number] Critical result performed at the point of care. Sample not collected by [facility] Hemoglobin calculated from Hematocrit result PCO2 POC 45 35 - 45 mmHg [facility] SODIUM 135(L) 138 - 146 mEq/L [facility] BASE EXCESS >30(H) -2 - 3 mmol/l [facility] Arterial blood specimen (specimen) 04/13/2008 5:26 PM CDT 04/13/2008 5:34 PM CDT Riky Mejía MD POINT OF CARE TESTING COM F inal Result Performing Organization Address City/[facility] Co de Phone Number INTERFACE SYSTEM Refer to clinic/hospital department [facility] CLIA# [id number] [address] [place] [address] * MRSA CULTURE (04/13/2008 4:30 PM CDT) FINAL REPORT Culture screen for MRSA negative INTERFACE SYSTEM 04/13/2008 4:30 PM CDT 04/13/2008 6:57 PM CDT Riky Mejía MD MICROBIOLOGY - GENERAL ORDE RABLES Final Result Performing Organization Address [facility] de Phone Number INTERFACE SYSTEM Refer to clinic/hospital department documented in this encounter Visit Diagnoses Not on filedocumented in this encounter Additional Health Concerns Infection Onset Date Last Indicated Resolved Time MRSA Comment:Kapil 10/26/15 10/27/2015 10/27/2015 documented as of this encounter Care Teams Scrap Piler Relationship Specialty Start Date End Date Jose Bowers MD [address] [place] [address] PCP - General 12/31/05 documented as of this encounter
--- OUTSIDE RECORDS SUMMARY | 2025-04-03 15:40 | XMS_ITS | Encounter Summary ---
Author Organization [facility] Address [address] [place] [address] Care Team Providers Care Slackline Operator Name Role Phone Jose Bowers MD Primary Care Provider Unavailab le Encounter Details Date Type Department Care Team (Latest Contact Info) Description 07/24/2006 Outpatient Historical [facility] [address] 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
--- OUTSIDE RECORDS SUMMARY | 2025-04-03 15:40 | XMS_ITS | Encounter Summary ---
Author Organization [facility] Address [address] [place] [address] Care Team Providers Care Referral Specialist Name Role Phone Jose Bowers MD Primary Care Provider Unavailab le Encounter Details Date Type Department Care Team (Late st Contact Info) Description 11/01/2005 Outpatient Historical [facility] [place] [address] [place] [phone] Jose Bowers MD [address] [place] [address] Unspecified Paralysis (CMS/HCC) (Primary Dx); Neurogenic Bladder, NOS Social History Tobacco Use Types Packs/Day Years Used Date Smoking Tobacco: Never Assessed Comments Unknown Sex and Gender Information Value Date Recorded Sex Assigned at Not on file Legal Sex Female 6:28 AM PROTOHISTORIAN Gender Identity Not on file Sexual Orientation Not on file documented as of this encounter Plan of Treatment Not on file documented as of this encounter Visit Diagnoses Diagnosis Paralysis, unspecified- Primary Neurogenic bladder, NOS documented in this encounter Additional Health Concerns Infection Onset Date Last Indicated Resolved Time MRSA Comment:Kapil 10/26/15 10/27/2015 10/27/2015 documented as of this encounter Care Teams Referral Specialist Relationship Specialty Start Date End Date Jose Bowers MD [address] [place] [address] PCP - General 12/31/05 documented as of this encounter
--- OUTSIDE RECORDS SUMMARY | 2025-04-03 15:40 | XMS_ITS | Encounter Summary ---
Author Organization [facility] Address [address] [place] [address] Care Team Providers Care Cross Country And Track And Field Coach Name Role Phone Jose Bowers MD Primary Care Provider Unavailab le Encounter Details Date Type Department Care Team (Late st Contact Info) Description 07/10/2007 Outpatient [facility] Physical Med and Re[facility]- [place] [address] [place] [address] Ramana Juarez MD [address] [place] [address] Social History Tobacco Use Types Packs/Day Years Used Date Smoking Tobacco: Never Assessed Comments Unknown Sex and Gender Information Value Date Recorded Sex Assigned at Not on file 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
--- OUTSIDE RECORDS SUMMARY | 2025-04-03 15:40 | XMS_ITS | Encounter Summary ---
Author Organization [facility] Address [address] [place] [address] Care Team Providers Care Risk Management Specialist Name Role Phone Jose Bowers MD Primary Care Provider Unavailab le Encounter Details Date Type Department Care Team (Latest Contact Info) Description 02/05/2005 Outpatient Historical [facility] [address] [place] [address] [place] [phone] Morenita Muñiz MD [address] [place] [address] ADMINISTRTVE ENCOUNT NOS (Primary Dx) Social History Tobacco Use Types Packs/Day Years Used Date Smoking Tobacco: Never Assessed Comments Unknown Sex and Gender Information Value Date Recorded Sex Assigned at Not on file 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 Gender Identity Not on file Sexual Orientation Not on file documented as of this encounter Plan of Treatment Not on file documented as of this encounter Visit Diagnoses Diagnosis Encounters for unspecified administrative purpose- Primary documented in this encounter Additional Health Concerns Infection Onset Date Last Indicated Resolved Time MRSA Comment:Kapil 10/26/15 10/27/2015 10/27/2015 documented as of this encounter Care Teams Risk Management Specialist Relationship Specialty Start Date End Date Jose Bowers MD [address] [place] [address] PCP - General 12/31/05 documented as of this encounter
--- OUTSIDE RECORDS SUMMARY | 2025-04-03 15:40 | XMS_ITS | Encounter Summary ---
Author Organization [facility] Address [address] [place] [address] Care Team Providers Care Senior Research Scientist Name Role Phone Jose Bowers MD Primary Care Provider Unavailab le Encounter Details Date Type Department Care Team (Late st Contact Info) Description 10/01/2005 Outpatient Historical [facility] Physical Med and Re[facility]- [place] [address] [place] [phone] Jose Bowers MD [address] [place] [address] Paraplegia (CMS/HCC) (Primary Dx); Neurogenic Bladder, NOS Social History Tobacco Use Types Packs/Day Years Used Date Smoking Tobacco: Never Assessed Comments Unknown Sex and Gender Information Value Date Recorded Sex Assigned at Not on file 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
--- OUTSIDE RECORDS SUMMARY | 2025-04-03 15:40 | XMS_ITS | Encounter Summary ---
Author Organization [facility] Address [address] [place] [address] Care Team Providers Care Mercury Cracking Tester Name Role Phone Jose Bowers MD Primary Care Provider Unavailab le Encounter Details Date Type Department Care Team (Late st Contact Info) Description 04/15/2006 Outpatient Historical [facility] Physical Med and Rehab- [place] [address] [place] [phone] Jose Bowers MD [address] [place] [address] Paraplegia (CMS/HCC) (Primary Dx) Social History Tobacco Use Types Packs/Day Years Used Date Smoking Tobacco: Never Assessed Comments Unknown Sex and Gender Information Value Date Recorded Sex Assigned at Not on file 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 Sex Female 6:28 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
--- OUTSIDE RECORDS SUMMARY | 2025-04-03 15:40 | XMS_ITS | Encounter Summary ---
Author Organization [facility] Address [address] [place] [address] Care Team Providers Care Facility Maintenance Supervisor Name Role Phone Jose Bowers MD Primary Care Provider Unavailab le Encounter Details Date Type Department Care Team (Late st Contact Info) Description 08/30/2006 Outpatient Historical [facility] Physical Med and Rehab- [place] [address] [place] [phone] Jose Bowers MD [address] [place] [address] Pain in Joint, Pelvic Region and Thigh (Primary Dx); Pain in Limb; Paraplegia (CMS/HCC) Social History Tobacco Use Types Packs/Day Years Used Date Smoking Tobacco: Never Assessed Comments Unknown Sex and Gender Information Value Date Recorded Sex Assigned at Not on file Legal Sex Female 6:28 AM SILK TRIMMER Gender Identity Not on file Sexual Orientation Not on file documented as of this encounter Plan of Treatment Not on file documented as of this encounter Procedures Procedure Name Priority Date/Time Associated Diagnosis Comments XR PELVIS 3+ VW Routine 08/30/2006 12:33 PM SILK TRIMMER documented in this encounter Results * XR PELVIS 3+ VW (08/30/2006 12:33 PM SILK TRIMMER) Anatomical Region Laterality Modality Pelvis Other 08/30/2006 12:3 3 PM SILK TRIMMER Narrative 08/30/2006 12:33 PM SILK TRIMMER PELVIS AND RIGHT HIP: TECHNIQUE: Two views [...] Pain in soft tissues of limb Paraplegia documented in this encounter Additional Health Concerns Infection Onset Date Last Indicated Resolved Time MRSA Comment:Kapil 10/26/15 10/27/2015 10/27/2015 documented as of this encounter Care Teams Facility Maintenance Supervisor Relationship Specialty Start Date End Date Jose Bowers MD [address] [place] [address] PCP - General 12/31/05 documented as of this encounter
--- OUTSIDE RECORDS SUMMARY | 2025-04-03 15:40 | XMS_ITS | Encounter Summary ---
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 [facility] has changed the methodology for TSH, and with this change the reference range has changed from 0.49-4.67 to 0.35-5.5 uIU/ml. 11/27/2005 6:09 AM CDT Jose Bowers MD CHEMISTRY ORDERABLES Final Resul t Performing Organization Address [facility] Phone Number INTERFACE SYSTEM Refer to [...] ORDERABLES Final Resu lt Performing Organization Address City/[facility] Co de Phone Number INTERFACE SYSTEM Refer to clinic/hospital department * (ABNORMAL) C-REACTIVE PROTEIN (11/27/2005 6:09 AM CDT) CRP 1.19(H) 0.00 - 1.00 mg/dL INTERFACE SYSTEM 11/27/2005 6:09 AM CDT Jose Bowers MD CHEMISTRY ORDERABLES Final Resul t Performing Organization Address City/[facility] Co de Phone Number [...] INTERFACE SYSTEM Comment: As of 05 the [facility] has changed testing methods. The new reference range is 25-100 The old referance range was 38-126 AST 26 8 - 33 U/L INTERFACE SYSTEM Comment: As of 05 the [facility] has changed testing methods. The new reference range is 8-33 The old referance range was Males 17-59 Females 14-36 ALT 27 4 - 36 IU/L INTERFACE SYSTEM Comment: As of 05 the [facility] has changed testing methods. The new reference range is 4-36 The old referance range was Males 21-72 Females 9-52 BILIRUBIN TOTAL 0.2(L) 0.3 - 1.2 mg/dL INTERFACE SYSTEM Comment: As of 05 the [facility] has changed testing methods. The new reference range is 0.3-1.2 The old referance range was 0.2-1.4 11/27/2005 6:09 AM CDT Jose Bowers MD CHEMISTRY ORDERABLES Final Resul t Performing Organization Address [facility] Phone Number INTERFACE SYSTEM Refer to clinic/hospital department * (ABNORMAL) SEDIMENTATION RATE (11/27/2005 6:09 AM CDT) ESR (SEDIMENTATION RATE) 25(H) 0 - 22 mm/hr INTERFACE SYSTEM 11/27/2005 6:09 AM CDT Jose Bowers MD HEMATOLOGY ORDERABLES Final Resu lt Performing Organization Address [facility] Phone Number INTERFACE SYSTEM Refer to [...] ORDERABLES Final Resu lt Performing Organization Address [facility] de Phone Number INTERFACE SYSTEM Refer [...] URINE ORDERABLES Final Result Performing Organization Address [facility] de Phone Number INTERFACE SYSTEM Refer [...] URINE ORDERABLES Final Result Performing Organization Address City/[place] [...] IMPRESSION: Limited study. Nonspecific findings present. [facility] ER D: [id number] Dictated By: Marcus Eng [...] as of this encounter Care Teams Head Batcher Relationship Specialty Start Date End Date Jose Bowers MD [address] [place] [address] PCP - General 12/31/05 documented as of this encounter
--- OUTSIDE RECORDS SUMMARY | 2025-04-03 15:40 | XMS_ITS | Encounter Summary ---
Author Organization [facility] Address [address] [place] [address] Care Team Providers Care Census Enumerator Name Role Phone Jose Bowers MD Primary Care Provider Unavailab le Encounter Details Date Type Department Care Team (Late st Contact Info) Description 02/14/2006 Outpatient Historical [facility] [address] [place] [id number] Jose Bowers MD [address] [place] [address] Paraplegia (CMS/HCC) (Primary Dx) Social History Tobacco Use Types Packs/Day Years Used Date Smoking Tobacco: Never Assessed Comments Unknown Sex and Gender Information Value Date Recorded Sex Assigned at Not on file 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
--- OUTSIDE RECORDS SUMMARY | 2025-04-03 15:40 | XMS_ITS | Encounter Summary ---
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
--- OUTSIDE RECORDS SUMMARY | 2025-04-03 15:40 | XMS_ITS | Encounter Summary ---
Author Organization 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 Name Role Phone Jose Bowers MD Primary Care Provider Levon le Encounter Details Date Type Department Care Team (Late st Contact Info) Description 05/01/2008 Outpatient Historical HIS IN BED Sj Ed, Physician NO ADDRESS ON FILE Cassie Woodruff MD [address] [place] [id number] Riky Mejía MD NO ADDRESS ON FILE [...] on file Legal Sex Female 6:28 AM CLINICAL RN LIAISON Gender Identity Not on file Sexual Orientation Not on file documented as of this encounter Plan of Treatment Not on file documented as of this encounter Procedures Procedure Name Priority Date/Time Associated Diagnosis Comments POC GLUCOSE Routine 05/12/2008 7:37 AM CLINICAL RN LIAISON POC GLUCOSE Routine 05/11/2008 9:43 PM CLINICAL RN LIAISON POC GLUCOSE Routine 05/11/2008 5:35 PM CLINICAL RN LIAISON POC GLUCOSE Routine 05/11/2008 11:40 AM CLINICAL RN LIAISON POC GLUCOSE Routine 05/11/2008 7:38 AM CLINICAL RN LIAISON POC GLUCOSE Routine 05/10/2008 9:54 PM CLINICAL RN LIAISON POC GLUCOSE Routine 05/10/2008 5:34 PM CLINICAL RN LIAISON POC GLUCOSE Routine 05/10/2008 12:08 PM CLINICAL RN LIAISON POC GLUCOSE Routine 05/10/2008 8:31 AM CLINICAL RN LIAISON CBC WITH DIFFERENTIAL Routine 05/10/2008 5:47 AM CLINICAL RN LIAISON COMPREHENSIVE METABOLIC PANEL Routine 05/10/2008 5:47 AM CLINICAL RN LIAISON POC GLUCOSE Routine 05/09/2008 9:17 PM CLINICAL RN LIAISON POC GLUCOSE Routine 05/09/2008 6:31 PM CLINICAL RN LIAISON POC GLUCOSE Routine 05/09/2008 12:20 PM CLINICAL RN LIAISON POC GLUCOSE Routine 05/09/2008 8:50 AM CLINICAL RN LIAISON POC GLUCOSE Routine 05/08/2008 8:06 PM CDT [...] * (ABNORMAL) POC GLUCOSE (05/12/2008 7:37 AM CLINICAL RN LIAISON) GLUCOSE POC 124(H) 60 - 100 mg/dL [facility] Venous blood specimen (specimen) 05/12/2008 7:37 AM CLINICAL RN LIAISON 05/13/2008 3:52 AM CLINICAL RN LIAISON us Riky Mejía MD POINT OF CARE TESTING Final Result Performing Organization Address [facility] Phone Number INTERFACE SYSTEM Refer to clinic/hospital department [facility] CLIA# [id number] [address] [place] [address] * (ABNORMAL) POC GLUCOSE (05/11/2008 9:43 PM CLINICAL RN LIAISON) GLUCOSE POC 123(H) 60 - 100 mg/dL [facility] Venous blood specimen (specimen) 05/11/2008 9:43 PM CLINICAL RN LIAISON 05/12/2008 3:33 AM CLINICAL RN LIAISON us Riky Mejía MD POINT OF CARE TESTING Final Result Performing Organization Address [facility] de Phone Number INTERFACE SYSTEM Refer to clinic/hospital department [facility] CLIA# [id number] [address] [place] [address] * (ABNORMAL) POC GLUCOSE (05/11/2008 5:35 PM CLINICAL RN LIAISON) GLUCOSE POC 117(H) 60 - 100 mg/dL [facility] Venous blood specimen (specimen) 05/11/2008 5:35 PM CLINICAL RN LIAISON 05/12/2008 3:33 AM CLINICAL RN LIAISON Riky Mejía MD POINT OF CARE TESTING Final Result Performing Organization Address [facility] de Phone Number INTERFACE SYSTEM Refer to clinic/hospital department [facility] CLIA# [id number] [address] [place] [address] * (ABNORMAL) POC GLUCOSE (05/11/2008 11:40 AM CLINICAL RN LIAISON) GLUCOSE POC 132(H) 60 - 100 mg/dL [facility] Venous blood specimen (specimen) 05/11/2008 11:40 AM CLINICAL RN LIAISON 05/12/2008 3:30 AM CLINICAL RN LIAISON Riky Mejía MD POINT OF CARE TESTING Final Result Performing Organization Address [facility] Phone Number INTERFACE SYSTEM Refer to clinic/hospital department [facility] CLIA# [id number] [address] [place] [address] * (ABNORMAL) POC GLUCOSE (05/11/2008 7:38 AM CLINICAL RN LIAISON) GLUCOSE POC 121(H) 60 - 100 mg/dL [facility] Venous blood specimen (specimen) 05/11/2008 7:38 AM CLINICAL RN LIAISON 05/12/2008 3:33 AM CLINICAL RN LIAISON Riky Mejía MD POINT OF CARE TESTING Final Result Performing Organization Address [facility] de Phone Number INTERFACE SYSTEM Refer to clinic/[facility] CLIA# [id number] [address] [place] [address] * (ABNORMAL) POC GLUCOSE (05/10/2008 9:54 PM CLINICAL RN LIAISON) GLUCOSE POC 122(H) 60 - 100 mg/dL [facility] Venous blood specimen (specimen) 05/10/2008 9:54 PM CLINICAL RN LIAISON 05/11/2008 4:24 AM CLINICAL RN LIAISON Riky Mejía MD POINT OF CARE TESTING Final Result Performing Organization Address [facility] Phone Number INTERFACE SYSTEM Refer to clinic/hospital department [facility] CLIA# [id number] [address] [place] [address] * (ABNORMAL) POC GLUCOSE (05/10/2008 5:34 PM CLINICAL RN LIAISON) GLUCOSE POC 111(H) 60 - 100 mg/dL [facility] Venous blood specimen (specimen) 05/10/2008 5:34 PM CLINICAL RN LIAISON 05/11/2008 4:24 AM CLINICAL RN LIAISON Riky Mejía MD POINT OF CARE TESTING Final Result Performing Organization Address [facility] Phone Number INTERFACE SYSTEM Refer to clinic/hospital department [facility] CLIA# [id number] [address] [place] [address] * (ABNORMAL) POC GLUCOSE (05/10/2008 12:08 PM CLINICAL RN LIAISON) GLUCOSE POC 127(H) 60 - 100 mg/dL [facility] Venous blood specimen (specimen) 05/10/2008 12:08 PM CLINICAL RN LIAISON 05/11/2008 4:18 AM CLINICAL RN LIAISON Riky Mejía MD POINT OF CARE TESTING Final Result Performing Organization Address [facility] de Phone Number INTERFACE SYSTEM Refer to clinic/hospital department [facility] CLIA# [id number] [address] [place] [address] * (ABNORMAL) POC GLUCOSE (05/10/2008 8:31 AM CLINICAL RN LIAISON) GLUCOSE POC 122(H) 60 - 100 mg/dL [facility] Venous blood specimen (specimen) 05/10/2008 8:31 AM CLINICAL RN LIAISON 05/11/2008 4:18 AM CLINICAL RN LIAISON Riky Mejía MD POINT OF CARE TESTING Final Result INTERFACE SYSTEM Refer to clinic/hospital department [facility] CLIA# [id number] [address] [place] [address] * (ABNORMAL) COMPREHENSIVE METABOLIC PANEL (05/10/2008 5:47 AM CLINICAL RN LIAISON) GLOBULIN (CALC) 2.3(L) 2.4 - 3.9 g/dL [facility] SODIUM 141 136 - 145 mEq/L [facility] BILIRUBIN TOTAL 0.4 0.3 - 1.2 mg/dL [facility] TOTAL PROTEIN 5.0(L) 6.3 - 8.2 g/dL [facility] BUN 7 7 - 17 mg/dL [facility] AST 24 8 - 33 U/L [facility] CO2 30 22 - 32 mmol/l [facility] ALBUMIN/GLOBULIN RATIO 1.2 1.0 - 2.3 [facility] ALBUMIN 2.7(L) 3.5 - 5.0 g/dL [facility] POTASSIUM 3.3(L) 3.5 - 5.0 mEq/L [facility] ANION GAP 7(L) 9 - 20 mEq/L [facility] CALCIUM 8.0(L) 8.4 - 10.5 mg/dL [facility] CREATININE 0.4(L) 0.7 - 1.2 mg/dL [facility] ALT 10 4 - 36 IU/L [facility] GLUCOSE 99 70 - 110 mg/dL [facility] CHLORIDE 107 95 - 110 mEq/L [facility] OSMOLALITY, CALCULATED 286 275 - 295 mOsm/Kg [facility] ALKALINE PHOSPHATASE 73 25 - 100 U/L [facility] Blood specimen (specimen) 05/10/2008 5:47 AM CLINICAL RN LIAISON 05/10/2008 5:52 AM CLINICAL RN LIAISON Riky Mejía MD CHEMISTRY ORDERABLES Final Result INTERFACE SYSTEM Refer to clinic/hospital department [facility] CLIA# [id number] [facility] [place] [address] * (ABNORMAL) CBC WITH DIFFERENTIAL (05/10/2008 5:47 AM CLINICAL RN LIAISON) LYMPHOCYTE ABSOLUTE 0.9(L) 1.2 - 4.0 K/ul [facility] MCV 96.4 84.0 - 103.0 Fl [facility] MPV 10.1 8.9 - 12.8 Fl [facility] BASOPHILS ABSOLUTE 0.0 0.0 - 0.2 K/ul [facility] BASOPHILS 0.7 0.0 - 1.0 % [facility] HEMOGLOBIN 8.3(L) 12.0 - 16.0 g/dL [facility] RDW 18.6(H) 11.0 - 14.5 % [facility] MONOCYTE ABSOLUTE 0.6 0.1 - 0.6 K/ul [facility] MONOCYTES 9.3 2.0 - 10.0 % [facility] WBC 6.1 4.5 - 11.0 K/ul [facility] MCH 29.5 27.0 - 34.0 pg [facility] NEUTROPHIL ABSOLUTE 4.3 2.0 - 8.0 K/ul [facility] NEUTROPHILS 70.5 42.2 - 75.2 % [facility] HEMATOCRIT 27.1(L) 36.0 - 46.0 % [facility] EOSINOPHILS 4.1 0.0 - 7.0 % [facility] PLATELETS 278 140 - 440 K/ul [facility] PERIPHERAL BLOOD SMEAR REVIEW Automated Diff [facility] EOSINOPHIL ABSOLUTE 0.3 0.0 - 0.7 K/ul [facility] RBC 2.81(L) 4.20 - 5.40 Mil/ul [facility] LYMPHOCYTES 15.4(L) 24.0 - 44.0 % [facility] MCHC 30.6 30.0 - 35.0 g/dL [facility] Blood specimen (specimen) 05/10/2008 5:47 AM CLINICAL RN LIAISON 05/10/2008 5:52 AM CLINICAL RN LIAISON us Ottoniel Vanegas MD HEMATOLOGY ORDERABLES Etresa l Result Performing Organization Address [facility] Phone Number INTERFACE SYSTEM Refer to clinic/hospital department [facility] CLIA# [id number] [address] [place] [address] * (ABNORMAL) POC GLUCOSE (05/09/2008 9:17 PM CLINICAL RN LIAISON) COMMENT POC Follow Protocol [facility] GLUCOSE POC 116(H) 60 - 100 mg/dL [facility] Venous blood specimen (specimen) 05/09/2008 9:17 PM CLINICAL RN LIAISON 05/10/2008 3:50 AM CLINICAL RN LIAISON us Riky Mejía MD POINT OF CARE TESTING Final Result Performing Organization Address [facility] Phone Number INTERFACE SYSTEM Refer to clinic/hospital department [facility] CLIA# [id number] [address] [place] [address] * POC GLUCOSE (05/09/2008 6:31 PM CLINICAL RN LIAISON) GLUCOSE POC 96 60 - 100 mg/dL [facility] Venous blood specimen (specimen) 05/09/2008 6:31 PM CLINICAL RN LIAISON 05/10/2008 3:50 AM CLINICAL RN LIAISON us Riky Mejía MD POINT OF CARE TESTING Final Result Performing Organization Address [facility] de Phone Number INTERFACE SYSTEM Refer to clinic/hospital department [facility] CLIA# [id number] [address] [place] [address] * (ABNORMAL) POC GLUCOSE (05/09/2008 12:20 PM CLINICAL RN LIAISON) GLUCOSE POC 123(H) 60 - 100 mg/dL [facility] Venous blood specimen (specimen) 05/09/2008 12:20 PM CLINICAL RN LIAISON 05/10/2008 3:50 AM CLINICAL RN LIAISON Riky Mejía MD POINT OF CARE TESTING Final Result Performing Organization Address [facility] de Phone Number INTERFACE SYSTEM Refer to clinic/hospital department [facility] CLIA# [id number] [address] [place] [address] * (ABNORMAL) POC GLUCOSE (05/09/2008 8:50 AM CLINICAL RN LIAISON) GLUCOSE POC 139(H) 60 - 100 mg/dL [facility] Venous blood specimen (specimen) 05/09/2008 8:50 AM CLINICAL RN LIAISON 05/10/2008 3:50 AM CLINICAL RN LIAISON Riky Mejía MD POINT OF CARE TESTING Final Result Performing Organization Address [facility] de Phone Number INTERFACE SYSTEM Refer to clinic/hospital department [facility] CLIA# [id number] [address] [place] [address] * (ABNORMAL) POC GLUCOSE (05/08/2008 8:06 PM CDT) GLUCOSE POC 115(H) 60 - 100 mg/dL [facility] COMMENT POC Recheck result [facility] Venous blood specimen (specimen) 05/08/2008 8:06 PM CDT 05/10/2008 7:16 AM CLINICAL RN LIAISON Riky Mejía MD POINT OF CARE TESTING Final Result Performing Organization Address [facility] de Phone Number INTERFACE SYSTEM Refer to clinic/hospital department [facility] CLIA# [id number] [address] [place] [address] * (ABNORMAL) POC GLUCOSE (05/08/2008 6:26 PM CDT) COMMENT POC Recheck result [facility] GLUCOSE POC 119(H) 60 - 100 mg/dL [facility] Venous blood specimen (specimen) 05/08/2008 6:26 PM CDT 05/10/2008 7:16 AM CLINICAL RN LIAISON Riky Mejía MD POINT OF CARE TESTING Final Result Performing Organization Address [facility] de Phone Number INTERFACE SYSTEM Refer to clinic/hospital department [facility] CLIA# [id number] [address] [place] [address] * (ABNORMAL) POC GLUCOSE (05/08/2008 12:27 PM CDT) [facility] GLUCOSE POC 130(H) 60 - 100 mg/dL [facility] Venous blood specimen (specimen) 05/08/2008 12:27 PM CDT 05/09/2008 1:13 AM CDT Riky Mejía MD POINT OF CARE TESTING Final Result Performing Organization Address [facility] Phone Number INTERFACE SYSTEM Refer to clinic/hospital department [facility] CLIA# [id number] [address] [place] [address] * (ABNORMAL) CBC WITH DIFFERENTIAL (05/08/2008 7:35 AM CDT) HEMOGLOBIN 8.0(L) 12.0 - 16.0 g/dL [facility] MONOCYTES 8.7 2.0 - 10.0 % [facility] RDW 18.5(H) 11.0 - 14.5 % [facility] MONOCYTE ABSOLUTE 0.7(H) 0.1 - 0.6 K/ul [facility] WBC 7.5 4.5 - 11.0 K/ul [facility] NEUTROPHILS 73.3 42.2 - 75.2 % [facility] MCH 29.7 27.0 - 34.0 pg [facility] NEUTROPHIL ABSOLUTE 5.5 2.0 - 8.0 K/ul [facility] HEMATOCRIT 25.8(L) 36.0 - 46.0 % [facility] PLATELETS 219 140 - 440 K/ul [facility] EOSINOPHIL ABSOLUTE 0.3 0.0 - 0.7 K/ul [facility] EOSINOPHILS 4.3 0.0 - 7.0 % [facility] RBC 2.69(L) 4.20 - 5.40 Mil/ul [facility] MCHC 31.0 30.0 - 35.0 g/dL [facility] LYMPHOCYTE ABSOLUTE 0.9(L) 1.2 - 4.0 K/ul [facility] LYMPHOCYTES 12.6(L) 24.0 - 44.0 % [facility] MCV 95.9 84.0 - 103.0 Fl [facility] BASOPHILS 1.1(H) 0.0 - 1.0 % [facility] MPV 10.6 8.9 - 12.8 Fl [facility] BASOPHILS ABSOLUTE 0.1 0.0 - 0.2 K/ul [facility] Blood specimen (specimen) 05/08/2008 7:35 AM CDT 05/08/2008 7:48 AM CDT us Riky Mejía MD HEMATOLOGY ORDERABLES Final Result INTERFACE SYSTEM Refer to clinic/hospital department [facility] CLIA# [id number] [facility] [place] [address] * (ABNORMAL) POC GLUCOSE (05/08/2008 5:15 AM CDT) GLUCOSE POC 132(H) 60 - 100 mg/dL [facility] Venous blood specimen (specimen) 05/08/2008 5:15 AM CDT 05/09/2008 1:13 AM CDT Riky Mejía MD POINT OF CARE TESTING Final Result Performing Organization Address [facility] de Phone Number INTERFACE SYSTEM Refer to clinic/hospital department [facility] CLIA# [id number] [address] [place] [address] * (ABNORMAL) POC GLUCOSE (05/07/2008 8:43 PM CDT) GLUCOSE POC 137(H) 60 - 100 mg/dL [facility] COMMENT POC Recheck result [facility] Venous blood specimen (specimen) 05/07/2008 8:43 PM CDT 05/10/2008 7:16 AM CLINICAL RN LIAISON Riky Mejía MD POINT OF CARE TESTING Final Result Performing Organization Address [facility] de Phone Number INTERFACE SYSTEM Refer to clinic/hospital department [facility] CLIA# [id number] [address] [place] [address] * (ABNORMAL) POC GLUCOSE (05/07/2008 5:13 PM CDT) GLUCOSE POC 137(H) 60 - 100 mg/dL [facility] COMMENT POC Recheck result [facility] Venous blood specimen (specimen) 05/07/2008 5:13 PM CDT 05/10/2008 7:16 AM CLINICAL RN LIAISON Riky Mejía MD POINT OF CARE TESTING Final Result Performing Organization Address [facility] de Phone Number INTERFACE SYSTEM Refer to clinic/hospital department [facility] CLIA# [id number] [address] [place] [address] * (ABNORMAL) POC GLUCOSE (05/07/2008 12:06 PM CDT) COMMENT POC Notify RN [facility] GLUCOSE POC 159(H) 60 - 100 mg/dL [facility] Venous blood specimen (specimen) 05/07/2008 12:06 PM CDT 05/08/2008 3:26 AM CDT Riky Mejía MD POINT OF CARE TESTING Final Result Performing Organization Address [facility] de Phone Number INTERFACE SYSTEM Refer to clinic/hospital department [facility] CLIA# [id number] [address] [place] [address] * (ABNORMAL) POC GLUCOSE (05/07/2008 8:20 AM CDT) GLUCOSE POC 135(H) 60 - 100 mg/dL [facility] COMMENT POC Notify R.N [facility] Venous blood specimen (specimen) 05/07/2008 8:20 AM CDT 05/08/2008 3:26 AM CDT Riky Mejía MD POINT OF CARE TESTING Final Result Performing Organization Address [facility] de Phone Number INTERFACE SYSTEM Refer to clinic/hospital department [facility] CLIA# [id number] [address] [place] [address] * (ABNORMAL) POC GLUCOSE (05/07/2008 5:22 AM CDT) GLUCOSE POC 133(H) 60 - 100 mg/dL [facility] Venous blood specimen (specimen) 05/07/2008 5:22 AM CDT 05/08/2008 3:25 AM CDT us Riky Mejía MD POINT OF CARE TESTING Final Result Performing Organization Address [facility] de Phone Number INTERFACE SYSTEM Refer to clinic/hospital department [facility] CLIA# [id number] [address] [place] [address] * (ABNORMAL) POC GLUCOSE (05/06/2008 8:39 PM CDT) GLUCOSE POC 116(H) 60 - 100 mg/dL [facility] COMMENT POC Notify R.N [facility] Venous blood specimen (specimen) 05/06/2008 8:39 PM CDT 05/07/2008 3:27 AM CDT us Riky Mejía MD POINT OF CARE TESTING Final Result INTERFACE SYSTEM Refer to clinic/hospital department [facility] CLIA# [id number] [address] [place] [address] * CT ABDOMEN PELVIS W CONTRAST (05/06/2008 [...] GLUCOSE POC 126(H) 60 - 100 mg/dL [facility] Venous blood specimen (specimen) 05/06/2008 5:38 PM CDT 05/07/2008 3:27 AM CDT Riky Mejía MD POINT OF CARE TESTING Final Result Performing Organization Address [facility] de Phone Number INTERFACE SYSTEM Refer to clinic/hospital department [facility] CLIA# [id number] [address] [place] [address] * (ABNORMAL) POC GLUCOSE (05/06/2008 12:55 PM CDT) GLUCOSE POC 120(H) 60 - 100 mg/dL [facility] Venous blood specimen (specimen) 05/06/2008 12:55 PM CDT 05/07/2008 3:27 AM CDT Riky Mejía MD POINT OF CARE TESTING Final Result Performing Organization Address [facility] Phone Number INTERFACE SYSTEM Refer to clinic/hospital department [facility] CLIA# [id number] [address] [place] [address] * (ABNORMAL) POC GLUCOSE (05/06/2008 8:03 AM CDT) GLUCOSE POC 134(H) 60 - 100 mg/dL [facility] Venous blood specimen (specimen) 05/06/2008 8:03 AM CDT 05/07/2008 3:24 AM CDT Riky Mejía MD POINT OF CARE TESTING Final Result Performing Organization Address [facility] de Phone Number INTERFACE SYSTEM Refer to clinic/hospital [facility] CLIA# [id number] [address] [place] [address] * (ABNORMAL) BASIC METABOLIC PANEL (05/06/2008 5:34 AM CDT) CREATININE 0.5(L) 0.7 - 1.2 mg/dL [facility] CALCIUM 8.1(L) 8.4 - 10.5 mg/dL [facility] GLUCOSE 111(H) 70 - 110 mg/dL [facility] CHLORIDE 107 95 - 110 mEq/L [facility] ANION GAP 11 9 - 20 mEq/L [facility] SODIUM 137 136 - 145 mEq/L [facility] BUN 10 7 - 17 mg/dL [facility] CO2 23 22 - 32 mmol/l [facility] POTASSIUM 3.7 3.5 - 5.0 mEq/L [facility] OSMOLALITY, CALCULATED 281 275 - 295 mOsm/Kg [facility] Blood specimen (specimen) 05/06/2008 5:34 AM CDT 05/06/2008 5:34 AM CDT us Riky Mejía MD CHEMISTRY ORDERABLES Final Result INTERFACE SYSTEM Refer to clinic/hospital department [facility] CLIA# [id number] [address] [place] [address] * (ABNORMAL) CBC WITH DIFFERENTIAL (05/06/2008 5:34 AM CDT) LYMPHOCYTES 11.5(L) 24.0 - 44.0 % [facility] MCHC 30.9 30.0 - 35.0 g/dL [facility] LYMPHOCYTE ABSOLUTE 0.9(L) 1.2 - 4.0 K/ul [facility] MCV 96.3 84.0 - 103.0 Fl [facility] MPV 11.1 8.9 - 12.8 Fl [facility] BASOPHILS ABSOLUTE 0.0 0.0 - 0.2 K/ul [facility] BASOPHILS 0.4 0.0 - 1.0 % [facility] HEMOGLOBIN 8.0(L) 12.0 - 16.0 g/dL [facility] RDW 18.5(H) 11.0 - 14.5 % [facility] MONOCYTE ABSOLUTE 0.7(H) 0.1 - 0.6 K/ul [facility] MONOCYTES 9.2 2.0 - 10.0 % [facility] WBC 7.7 4.5 - 11.0 K/ul [facility] MCH 29.7 27.0 - 34.0 pg [facility] NEUTROPHIL ABSOLUTE 5.8 2.0 - 8.0 K/ul [facility] NEUTROPHILS 75.3(H) 42.2 - 75.2 % [facility] HEMATOCRIT 25.9(L) 36.0 - 46.0 % [facility] EOSINOPHILS 3.6 0.0 - 7.0 % [facility] PLATELETS 203 140 - 440 K/ul [facility] PERIPHERAL BLOOD SMEAR REVIEW Automated Diff [facility] EOSINOPHIL ABSOLUTE 0.3 0.0 - 0.7 K/ul [facility] RBC 2.69(L) 4.20 - 5.40 Mil/ul [facility] Blood specimen (specimen) 05/06/2008 5:34 AM CDT 05/06/2008 5:34 AM CDT us Riky Mejía MD HEMATOLOGY ORDERABLES Final Result Performing Organization Address [facility] de Phone Number INTERFACE SYSTEM Refer to clinic/hospital department [facility] CLIA# [id number] [address] [place] [address] * (ABNORMAL) POC GLUCOSE (05/05/2008 8:26 PM CDT) GLUCOSE POC 157(H) 60 - 100 mg/dL [facility] Venous blood specimen (specimen) 05/05/2008 8:26 PM CDT 05/06/2008 3:31 AM CDT us Riky Mejía MD POINT OF CARE TESTING Final Result Performing Organization Address [facility] de Phone Number INTERFACE SYSTEM Refer to clinic/hospital department [facility] CLIA# [id number] [address] [place] [address] * (ABNORMAL) POC GLUCOSE (05/05/2008 4:57 PM CDT) GLUCOSE POC 124(H) 60 - 100 mg/dL [facility] Venous blood specimen (specimen) 05/05/2008 4:57 PM CDT 05/06/2008 3:31 AM CDT Riky Mejía MD POINT OF CARE TESTING Final Result Performing Organization Address [facility] de Phone Number INTERFACE SYSTEM Refer to clinic/hospital department [facility] CLIA# [id number] [address] [place] [address] * (ABNORMAL) POC GLUCOSE (05/05/2008 11:30 AM CDT) GLUCOSE POC 127(H) 60 - 100 mg/dL [facility] Venous blood specimen (specimen) 05/05/2008 11:30 AM CDT 05/06/2008 3:31 AM CDT Riky Mejía MD POINT OF CARE TESTING Final Result Performing Organization Address [facility] de Phone Number INTERFACE SYSTEM Refer to clinic/hospital department [facility] CLIA# [id number] [address] [place] [address] * (ABNORMAL) POC GLUCOSE (05/05/2008 8:05 AM CDT) GLUCOSE POC 137(H) 60 - 100 mg/dL [facility] Venous blood specimen (specimen) 05/05/2008 8:05 AM CDT 05/06/2008 3:31 AM CDT Riky Mejía MD POINT OF CARE TESTING Final Result Performing Organization Address [place]/[facility] de Phone Number INTERFACE SYSTEM Refer to clinic/hospital department [facility] CLIA# [id number] [address] [place] [address] * (ABNORMAL) POC GLUCOSE (05/04/2008 9:56 PM CDT) GLUCOSE POC 115(H) 60 - 100 mg/dL [facility] Venous blood specimen (specimen) 05/04/2008 9:56 PM CDT 05/05/2008 2:27 AM CDT Riky Mejía MD POINT OF CARE TESTING Final Result Performing Organization Address City/[facility] de Phone Number INTERFACE SYSTEM Refer to clinic/hospital department [facility] CLIA# [id number] [address] [place] [address] * (ABNORMAL) POC GLUCOSE (05/04/2008 5:34 PM CDT) GLUCOSE POC 120(H) 60 - 100 mg/dL [facility] Venous blood specimen (specimen) 05/04/2008 5:34 PM CDT 05/05/2008 5:02 AM CDT Riky Mejía MD POINT OF CARE TESTING Final Result Performing Organization Address [facility] de Phone Number INTERFACE SYSTEM Refer to clinic/hospital department [facility] CLIA# [id number] [address] [place] [address] * (ABNORMAL) POC GLUCOSE (05/04/2008 11:15 AM CDT) GLUCOSE POC 133(H) 60 - 100 mg/dL [facility] Venous blood specimen (specimen) 05/04/2008 11:15 AM CDT 05/05/2008 2:27 AM CDT Riky Mejía MD POINT OF CARE TESTING Final Result Performing Organization Address City/[facility] Co de Phone Number INTERFACE SYSTEM Refer to clinic/hospital department [facility] CLIA# [id number] [address] [place] [address] * URINE CULTURE (05/04/2008 9:06 AM CDT) FINAL REPORT No growth INTERFA CE SYSTEM 05/04/2008 9:06 AM CDT 05/04/2008 9:06 AM CDT us Riky Mejía MD [facility]BIOLOGY - [facility] Final Result Performing Organization Address [facility] Phone Number INTERFACE SYSTEM Refer to clinic/hospital department * (ABNORMAL) POC GLUCOSE (05/04/2008 7:37 AM CDT) GLUCOSE POC 139(H) 60 - 100 mg/dL [facility] Venous blood specimen (specimen) 05/04/2008 7:37 AM CDT 05/05/2008 2:27 AM CDT us Riky Mejía MD POINT OF CARE TESTING Final Result Performing Organization Address [facility] Phone Number INTERFACE SYSTEM Refer to clinic/hospital department [facility] CLIA# [id number] [address] [place], [place] [address] * (ABNORMAL) URINALYSIS MICROSCOPY ONLY (05/04/2008 2:12 AM CDT) HYALINE CAST None Seen 0 - 2 [facility] WBC URINE 0-2 0 - 2 [facility] BACTERIA UA Small(A) None Seen [facility] RBC UA 6-10(A) 0 - 2 [facility] Urine specimen (specimen) 05/04/2008 2:12 AM CDT 05/04/2008 2:12 AM CDT Narrative INTERFACE SYSTEM - 05/04/2008 2:30 AM CDT Microscopic ordered by policy us Riky Mejía MD URINE ORDERABLES Final Resu lt Performing Organization Address [facility] Phone Number INTERFACE SYSTEM Refer to clinic/hospital department [facility] CLIA# [id number] [address] [place] [address] * ICTOTEST (05/04/2008 2:12 AM CDT) Pathologist [facility] ICTO Negative Negative [facility] Urine specimen (specimen) 05/04/2008 2:12 AM CDT 05/04/2008 2:12 AM CDT Narrative INTERFACE SYSTEM - 05/04/2008 2:30 AM CDT Bili verified by ictotest us Riky Mejía MD URINE ORDERABLES Final Resu lt Performing Organization Address [facility] de Phone Number INTERFACE SYSTEM Refer to clinic/hospital department [facility] CLIA# [id number] [address] [place] [address] * (ABNORMAL) URINALYSIS (05/04/2008 2:12 AM CDT) Pathologist [facility] LEUKOCYTE ESTERASE UA NEGATIVE NEGATIVE [facility] KETONES UA Trace(A) NEGATIVE [facility] COLOR UA Yellow Straw [facility] PROTEIN UA 100 mg/dl(A) NEGATIVE [facility] SPECIFIC GRAVITY UA 1.010 <=1.005 [facility] NITRITE UA NEGATIVE NEGATIVE [facility] UROBILINOGEN UA 0.2 0.2 [facility] CLARITY UA Clear Clear [facility] GLUCOSE UA NEGATIVE NEGATIVE [facility] MICRO EXAM Yes(A) No [facility] PH UA 6.5 5.0 - 9.0 [facility] BLOOD UA MODERATE(A) NEGATIVE [facility] Urine specimen (specimen) 05/04/2008 2:12 AM CDT 05/04/2008 2:12 AM CDT us Riky Mejía MD URINE ORDERABLES Final Resu lt Performing Organization Address [facility] de Phone Number INTERFACE SYSTEM Refer to clinic/hospital department [facility] CLIA# [id number] [address] [place] [address] * BLOOD CULTURE (05/04/2008 2:02 AM CDT) Pathologist [facility] FINAL REPORT No growth INTERFA CE SYSTEM Blood specimen (specimen) 05/04/2008 2:02 AM CDT 05/04/2008 3:36 AM CDT us Riky Mejía MD [facility] Final Result Performing Organization Address [facility] Phone Number INTERFACE SYSTEM Refer to clinic/hospital department * (ABNORMAL) BASIC METABOLIC PANEL (05/04/2008 1:55 AM CDT) Pathologist [facility] OSMOLALITY, CALCULATED 282 275 - 295 mOsm/Kg [facility] POTASSIUM 4.3 3.5 - 5.0 mEq/L [facility] CREATININE 0.6(L) 0.7 - 1.2 mg/dL [facility] CALCIUM 9.0 8.4 - 10.5 mg/dL [facility] GLUCOSE 120(H) 70 - 110 mg/dL [facility] CHLORIDE 108 95 - 110 mEq/L [facility] SODIUM 135(L) 136 - 145 mEq/L [facility] ANION GAP 10 9 - 20 mEq/L [facility] BUN 17 7 - 17 mg/dL [facility] CO2 21(L) 22 - 32 mmol/l [facility] Blood specimen (specimen) 05/04/2008 1:55 AM CDT 05/04/2008 2:49 AM CDT us Riky Mejía MD CHEMISTRY ORDERABLES Final Result Performing Organization Address [facility] de Phone Number INTERFACE SYSTEM Refer to clinic/hospital department [facility] CLIA# [id number] [address] [place] [address] * (ABNORMAL) CBC WITH DIFFERENTIAL (05/04/2008 1:55 AM CDT) PERIPHERAL BLOOD SMEAR REVIEW Automated Diff [facility] EOSINOPHIL ABSOLUTE 0.2 0.0 - 0.7 K/ul [facility] RBC 2.86(L) 4.20 - 5.40 Mil/ul [facility] MCHC 31.6 30.0 - 35.0 g/dL [facility] LYMPHOCYTES 11.5(L) 24.0 - 44.0 % [facility] LYMPHOCYTE ABSOLUTE 1.0(L) 1.2 - 4.0 K/ul [facility] MCV 96.2 84.0 - 103.0 Fl [facility] MPV 11.1 8.9 - 12.8 Fl [facility] BASOPHILS ABSOLUTE 0.0 0.0 - 0.2 K/ul [facility] BASOPHILS 0.4 0.0 - 1.0 % [facility] HEMOGLOBIN 8.7(L) 12.0 - 16.0 g/dL [facility] RDW 18.6(H) 11.0 - 14.5 % [facility] MONOCYTE ABSOLUTE 1.0(H) 0.1 - 0.6 K/ul [facility] MONOCYTES 10.9(H) 2.0 - 10.0 % [facility] WBC 8.9 4.5 - 11.0 K/ul [facility] NEUTROPHILS 75.1 42.2 - 75.2 % [facility] MCH 30.4 27.0 - 34.0 pg [facility] NEUTROPHIL ABSOLUTE 6.7 2.0 - 8.0 K/ul [facility] HEMATOCRIT 27.5(L) 36.0 - 46.0 % [facility] PLATELETS 180 140 - 440 K/ul [facility] EOSINOPHILS 2.1 0.0 - 7.0 % [facility] Blood specimen (specimen) 05/04/2008 1:55 AM CDT 05/04/2008 2:25 AM CDT us Riky Mejía MD HEMATOLOGY ORDERABLES Final Result Performing Organization Address [facility] de Phone Number INTERFACE SYSTEM Refer to clinic/hospital department [facility] CLIA# [id number] [address] [place] [address] * BLOOD CULTURE (05/04/2008 1:55 AM CDT) FINAL REPORT No growth INTERFA CE SYSTEM REPORT/SPECIM EN COMMENT Specimen processed with suboptimal blood volume. Recommended adult blood volume is 8-10 mL per bottle. INTERFACE SYSTEM Blood specimen (specimen) 05/04/2008 1:55 AM CDT 05/04/2008 3:36 AM CDT us Riky Mejía MD MICROBIOLOGY - [facility] Final Result Performing Organization Address [facility] Phone Number INTERFACE SYSTEM Refer to clinic/hospital department * (ABNORMAL) POC GLUCOSE (05/03/2008 9:24 PM CDT) GLUCOSE POC 137(H) 60 - 100 mg/dL [facility] Venous blood specimen (specimen) 05/03/2008 9:24 PM CDT 05/04/2008 4:27 AM CDT us Riky Mejía MD POINT OF CARE TESTING Final Result Performing Organization Address [facility] Phone Number INTERFACE SYSTEM Refer to clinic/hospital department [facility] CLIA# [id number] [facility] [place] [address] * (ABNORMAL) POC GLUCOSE (05/03/2008 4:35 PM CDT) GLUCOSE POC 128(H) 60 - 100 mg/dL [facility] Venous blood specimen (specimen) 05/03/2008 4:35 PM CDT 05/04/2008 4:27 AM CDT us Riky Mejía MD POINT OF CARE TESTING Final Result INTERFACE SYSTEM Refer to clinic/hospital department [facility] CLIA# [id number] [place] [address] * CT ABDOMEN PELVIS W CONTRAST (05/03/2008 [...] mm volumetric acquisition with 125 mL intravenous [id number]. Comparison: None. Findings: Consolidative atelectasis versus airspace [...] APTT (05/03/2008 9:00 AM CDT) INR 1.3 [facility] Comment: Expected Values for INR: DVT/PE Goal INR 2.5; range 2.0 - 3.0 Valve Replacement Tissue Goal INR 2.5; range 2.0 - 3.0 Mechanical Goal INR 3.0; range 2.5 - 3.5 POST-[place] Goal INR 2.5; range 2.0 - 3.0 or Goal 3.0; range 2.5 - 3.5 Atrial Fibrillation Goal INR 2.5; range 2.0 - 3.0 Ischemic Stroke Goal INR 2.5; range 2.0 - 3.0 For additional information see Guidelines for Anticoagulation available from the pharmacy [facility]. [phone] PTT 38.5(H) 22.5 - 36.5 Secs [facility] Comment: Therapeutic Range: Hi-level PE/DVT heparin protocol 80.1 -95.0 sec Lo-level PE/DVT heparin protocol 67.1 - 80.0 sec Cardiac Heparin Protocol 67.1 - 85.0 sec Neuro Heparin Protocol 67.1 - 80.0 sec As of 09/25/2007 note change in APTT Normal Range. PROTIME 18.0(H) 12.8 - 15.8 Secs [facility] Comment:As of 2007 not e change in normal range. Blood specimen (specimen) 05/03/2008 9:00 AM CDT 05/03/2008 9:10 AM CDT Narrative INTERFACE SYSTEM - 05/03/2008 9:23 AM CDT use blood in the lab us Riky Mejía MD HEMATOLOGY ORDERABLES Edite d INTERFACE SYSTEM Refer to clinic/hospital department [facility] CLIA# [id number] [address] [place] [address] * (ABNORMAL) BASIC METABOLIC PANEL (05/03/2008 5:39 AM CDT) GLUCOSE 122(H) 70 - 110 mg/dL [facility] CHLORIDE 106 95 - 110 mEq/L [facility] SODIUM 135(L) 136 - 145 mEq/L [facility] ANION GAP 14 9 - 20 mEq/L [facility] BUN 20(H) 7 - 17 mg/dL [facility] CO2 20(L) 22 - 32 mmol/l [facility] OSMOLALITY, CALCULATED 284 275 - 295 mOsm/Kg [facility] POTASSIUM 5.0 3.5 - 5.0 mEq/L [facility] CREATININE 0.6(L) 0.7 - 1.2 mg/dL [facility] CALCIUM 9.1 8.4 - 10.5 mg/dL [facility] Blood specimen (specimen) 05/03/2008 5:39 AM CDT 05/03/2008 6:15 AM CDT us Riky Mejía MD CHEMISTRY ORDERABLES Final Result INTERFACE SYSTEM Refer to clinic/hospital department [facility] CLIA# [id number] [address] [place] [address] * (ABNORMAL) CBC WITH DIFFERENTIAL (05/03/2008 5:39 AM CDT) HEMATOCRIT 28.4(L) 36.0 - 46.0 % [facility] LYMPHOCYTE ABSOLUTE 0.6(L) 1.2 - 4.0 K/ul [facility] LYMPHOCYTES 5.9(L) 24.0 - 44.0 % [facility] MCHC 31.3 30.0 - 35.0 g/dL [facility] BASOPHILS 0.2 0.0 - 1.0 % [facility] MPV 10.9 8.9 - 12.8 Fl [facility] WBC 10.2 4.5 - 11.0 K/ul [facility] BASOPHILS ABSOLUTE 0.0 0.0 - 0.2 K/ul [facility] PERIPHERAL BLOOD SMEAR REVIEW Automated Diff [facility] MCV 96.3 84.0 - 103.0 Fl [facility] MONOCYTES 9.9 2.0 - 10.0 % [facility] RDW 18.3(H) 11.0 - 14.5 % [facility] MONOCYTE ABSOLUTE 1.0(H) 0.1 - 0.6 K/ul [facility] RBC 2.95(L) 4.20 - 5.40 Mil/ul [facility] HEMOGLOBIN 8.9(L) 12.0 - 16.0 g/dL [facility] NEUTROPHILS 82.5(H) 42.2 - 75.2 % [facility] NEUTROPHIL ABSOLUTE 8.5(H) 2.0 - 8.0 K/ul [facility] MCH 30.2 27.0 - 34.0 pg [facility] PLATELETS 163 140 - 440 K/ul [facility] EOSINOPHIL ABSOLUTE 0.2 0.0 - 0.7 K/ul [facility] EOSINOPHILS 1.5 0.0 - 7.0 % [facility] Blood specimen (specimen) 05/03/2008 5:39 AM CDT 05/03/2008 6:15 AM CDT Riky Mejía MD HEMATOLOGY ORDERABLES Final Result Performing Organization Address City/[facility]/ZIP Co de Phone Number INTERFACE SYSTEM Refer to clinic/hospital department [facility] CLIA# [id number] [address] [place] [address] * URINE CULTURE (05/02/2008 10:05 PM CDT) FINAL REPORT No growth INTERFA CE SYSTEM 05/02/2008 10:0 5 PM CDT 05/02/2008 10:05 PM CDT Riky Mejía MD MICROBIOLOGY - [facility] Final Result Performing Organization Address [facility] de Phone Number INTERFACE SYSTEM Refer to clinic/hospital department * (ABNORMAL) URINALYSIS MICROSCOPY ONLY (05/02/2008 9:19 PM CDT) BACTERIA UA Few(A) None Seen [facility] WBC URINE 3-5(A) 0 - 2 [facility] RBC UA 0-2 0 - 2 [facility] HYALINE CAST 0-2 0 - 2 [facility] Urine specimen (specimen) 05/02/2008 9:19 PM CDT 05/02/2008 9:19 PM CDT Narrative INTERFACE SYSTEM - 05/02/2008 9:43 PM CDT Microscopic ordered by policy Riky Mejía MD URINE ORDERABLES Final Resu lt Performing Organization Address [facility] de Phone Number INTERFACE SYSTEM Refer to clinic/hospital department [facility] CLIA# [id number] [address] [place], [place] [address] * (ABNORMAL) ICTOTEST (05/02/2008 9:19 PM CDT) ICTO Positive(A) Negative [facility] Urine specimen (specimen) 05/02/2008 9:19 PM CDT 05/02/2008 9:19 PM CDT Narrative INTERFACE SYSTEM - 05/02/2008 9:43 PM CDT Bili verified by ictotest us Riky Mejía MD URINE ORDERABLES Final Resu lt Performing Organization Address [facility] Phone Number INTERFACE SYSTEM Refer to clinic/hospital department [facility] CLIA# [id number] [address] [place] [address] * (ABNORMAL) URINALYSIS (05/02/2008 9:19 PM CDT) CLARITY UA Clear Clear [facility] MICRO EXAM Yes(A) No [facility] GLUCOSE UA NEGATIVE NEGATIVE [facility] PH UA 5.5 5.0 - 9.0 [facility] BLOOD UA NEGATIVE NEGATIVE [facility] LEUKOCYTE ESTERASE UA NEGATIVE NEGATIVE [facility] KETONES UA Trace(A) NEGATIVE [facility] COLOR UA Yellow Straw [facility] PROTEIN UA 100 mg/dl(A) NEGATIVE [facility] SPECIFIC GRAVITY UA >=1.030(A) <=1.005 [facility] NITRITE UA POSITIVE(A) NEGATIVE [facility] UROBILINOGEN UA 0.2 0.2 [facility] Urine specimen (specimen) 05/02/2008 9:19 PM CDT 05/02/2008 9:19 PM CDT Riky Mejía MD URINE ORDERABLES Final Resu lt Performing Organization Address [facility] Phone Number INTERFACE SYSTEM Refer to clinic/hospital department [facility] CLIA# [id number] [address] [place] [address] * (ABNORMAL) BASIC METABOLIC PANEL (05/02/2008 6:50 PM CDT) BUN 22(H) 7 - 17 mg/dL [facility] CO2 23 22 - 32 mmol/l [facility] POTASSIUM 5.3(H) 3.5 - 5.0 mEq/L [facility] Comment: Specimen slightly hemolyzed OSMOLALITY, CALCULATED 278 275 - 295 mOsm/Kg [facility] CREATININE 0.7 0.7 - 1.2 mg/dL [facility] CALCIUM 9.2 8.4 - 10.5 mg/dL [facility] GLUCOSE 124(H) 70 - 110 mg/dL [facility] CHLORIDE 101 95 - 110 mEq/L [facility] ANION GAP 12 9 - 20 mEq/L [facility] SODIUM 131(L) 136 - 145 mEq/L [facility] Blood specimen (specimen) 05/02/2008 6:50 PM CDT 05/02/2008 7:01 PM CDT us Riky Mejía MD CHEMISTRY ORDERABLES Final Result Performing Organization Address [facility] de Phone Number INTERFACE SYSTEM Refer to clinic/hospital department [facility] CLIA# [id number] [address] [place] [address] * (ABNORMAL) BASIC METABOLIC PANEL (05/02/2008 8:38 AM CDT) OSMOLALITY, CALCULATED 280 275 - 295 mOsm/Kg [facility] CREATININE 0.8 0.7 - 1.2 mg/dL [facility] CALCIUM 9.5 8.4 - 10.5 mg/dL [facility] GLUCOSE 123(H) 70 - 110 mg/dL [facility] CHLORIDE 100 95 - 110 mEq/L [facility] ANION GAP 13 9 - 20 mEq/L [facility] SODIUM 131(L) 136 - 145 mEq/L [facility] BUN 26(H) 7 - 17 mg/dL [facility] CO2 24 22 - 32 mmol/l [facility] POTASSIUM 5.5(H) 3.5 - 5.0 mEq/L [facility] Blood specimen (specimen) 05/02/2008 8:38 AM CDT 05/02/2008 8:43 AM CDT Riky Mejía MD CHEMISTRY ORDERABLES Final Result INTERFACE SYSTEM Refer to clinic/hospital department [facility] CLIA# [id number] [address] [place] [address] * (ABNORMAL) CBC WITH DIFFERENTIAL (05/02/2008 6:55 AM CDT) LYMPHOCYTE ABSOLUTE 1.4 1.2 - 4.0 K/ul [facility] MCV 95.8 84.0 - 103.0 Fl [facility] MPV 11.2 8.9 - 12.8 Fl [facility] BASOPHILS ABSOLUTE 0.1 0.0 - 0.2 K/ul [facility] BASOPHILS 0.4 0.0 - 1.0 % [facility] HEMOGLOBIN 10.8(L) 12.0 - 16.0 g/dL [facility] RDW 18.3(H) 11.0 - 14.5 % [facility] MONOCYTE ABSOLUTE 1.5(H) 0.1 - 0.6 K/ul [facility] MONOCYTES 11.3(H) 2.0 - 10.0 % [facility] WBC 13.0(H) 4.5 - 11.0 K/ul [facility] MCH 30.3 27.0 - 34.0 pg [facility] NEUTROPHIL ABSOLUTE 10.0(H) 2.0 - 8.0 K/ul [facility] NEUTROPHILS 76.9(H) 42.2 - 75.2 % [facility] HEMATOCRIT 34.2(L) 36.0 - 46.0 % [facility] EOSINOPHILS 0.8 0.0 - 7.0 % [facility] PLATELETS 164 140 - 440 K/ul [facility] PERIPHERAL BLOOD SMEAR REVIEW Automated Diff [facility] EOSINOPHIL ABSOLUTE 0.1 0.0 - 0.7 K/ul [facility] RBC 3.57(L) 4.20 - 5.40 Mil/ul [facility] LYMPHOCYTES 10.6(L) 24.0 - 44.0 % [facility] MCHC 31.6 30.0 - 35.0 g/dL [facility] Blood specimen (specimen) 05/02/2008 6:55 AM CDT 05/02/2008 7:02 AM CDT us Riky Mejía MD HEMATOLOGY ORDERABLES Final Result Performing Organization Address City/State/[facility] Co de Phone Number INTERFACE SYSTEM Refer to clinic/hospital department [facility] CLIA# [id number] [address] [place] [address] documented in this encounter Visit Diagnoses Diagnosis Pressure ulcer, buttock(707.05) Pressure ulcer, buttock Pressure ulcer, lower back(707.03) Pressure ulcer, lower back Paraplegia Pulmonary collapse Body mass index 40 and over, adult Body Mass Index 40 and over, adult Morbid obesity (CMS/HCC) Morbid obesity Colostomy status (CMS/HCC) Colostomy status Personal history of venous thrombosis and embolism Nausea alone Esophageal reflux Fever, unspecified Debility, unspecified Pressure ulcer, stage II(707.22) (CMS/HCC) Pressure ulcer, stage II Perforation of intestine Unspecified procedure as the cause of abnormal reaction of patient, or of later complication, without mention of misadventure at time of procedure Peritoneal abscess ([facility]/HCC) Peritoneal abscess Unspecified protein-calorie malnutrition Pressure ulcer, stage IV(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.24) ([facility]) Pressure ulcer, stage IV Pressure ulcer, upper back(707.02) Pressure ulcer, upper back Pressure ulcer, stage III(707.23) ([facility]) Pressure ulcer, stage III Removal of other organ (partial) (total) causing abnormal patient reaction, or later complication, without mention of misadventure at time of operation documented in this encounter Additional Health Concerns Infection Onset Date Last Indicated Resolved Time MRSA Comment:Kapil 10/26/15 10/27/2015 10/27/2015 documented as of this encounter Care Teams Air Surveillance Operator Relationship Specialty Start Date End Date Jose Bowers MD [address] [place] [id number] PCP - General 12/31/05 documented as of this encounter
--- OUTSIDE RECORDS SUMMARY | 2025-04-03 15:40 | XMS_ITS | Clinical Summary ---
Author Organization [facility] Address 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
--- OUTSIDE RECORDS SUMMARY | 2025-04-03 15:40 | XMS_ITS | Encounter Summary ---
Author Organization [facility] Address [address] [place] [address] Care Team Providers Care Heel Packer Name Role Phone Jose Bowers MD Primary Care Provider Unavailab le Encounter Details Date Type Department Care Team (Late st Contact Info) Description 07/24/[address] 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 Gender Identity Not on file Sexual Orientation Not on file documented as of this encounter Plan of Treatment Not on file documented as of this encounter Visit Diagnoses Diagnosis Paraplegia- Primary Difficulty in walking(719.7) Difficulty in walking Pain in limb Pain in soft tissues of limb documented in this encounter Additional Health Concerns Infection Onset Date Last Indicated Resolved Time MRSA Comment:Kapil 10/26/15 10/27/2015 10/27/2015 documented as of this encounter Care Teams Heel Packer Relationship Specialty Start Date End Date Jose Bowers MD [address] [place] [address] PCP - General 12/31/05 documented as of this encounter
--- OUTSIDE RECORDS SUMMARY | 2025-04-03 15:40 | XMS_ITS | Encounter Summary ---
Author Organization [facility] Address [address] [place] [address] Care Team Providers Care Concrete Mixer Operator Name Role Phone Jose Bowers MD Primary Care Provider Unavailab le Encounter Details Date Type Department Care Team (Latest Contact Info) Description 08/30/2006 Outpatient Historical [facility] Imaging Services [address] [place] [phone] Jose Bowers MD [address] [place] [phone] Pain in Joint, Pelvic Region and Thigh (Primary Dx) Social History Tobacco Use Types Packs/Day Years Used Date Smoking Tobacco: Never Assessed Comments Unknown Sex and Gender Information Value Date Recorded Sex Assigned at Not on file 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 Gender Identity Not on file Sexual Orientation Not on file documented as of this encounter Plan of Treatment Not on file documented as of this encounter Procedures Procedure Name Priority Date/Time Associated Diagnosis Comments CBC WITH DIFFERENTIAL Routine 08/30/2006 12:42 PM TUBE MAKING MACHINE OPERATOR SEDIMENTATION RATE Routine 08/30/2006 12 :42 PM TUBE MAKING MACHINE OPERATOR CK Routine 08/30/2006 12:42 PM TUBE MAKING MACHINE OPERATOR documented in this encounter Results * (ABNORMAL) CK (08/30/2006 12:42 PM TUBE MAKING MACHINE OPERATOR) CK 201(H) 26 - 140 U/L INTERFACE SYSTEM Comment: As of 05 the [facility] has changed testing methods. The new reference ranges are Males 38-174 Females 26-140 The old referance ranges were Males 0-155 Females 0-133 08/30/2006 12:4 2 PM TUBE MAKING MACHINE OPERATOR Jose Bowers MD CHEMISTRY ORDERABLES Edited Performing Organization Address City/[facility] Co de Phone Number INTERFACE SYSTEM Refer to clinic/hospital department * (ABNORMAL) CBC WITH DIFFERENTIAL (08/30/2006 12:42 PM TUBE MAKING MACHINE OPERATOR) WBC 5.1 4.5 - 11.0 [...] K/ul INTERFACE SYSTEM 08/30/2006 12:4 2 PM TUBE MAKING MACHINE OPERATOR Jose Bowers MD HEMATOLOGY ORDERABLES Edited Performing Organization Address City/[facility] Co de Phone Number INTERFACE SYSTEM Refer to clinic/hospital department * (ABNORMAL) SEDIMENTATION RATE (08/30/2006 12:42 PM TUBE MAKING MACHINE OPERATOR) ESR (SEDIMENTATION RATE) 27(H) 0 - 22 mm/hr INTERFACE SYSTEM 08/30/2006 12:4 2 PM TUBE MAKING MACHINE OPERATOR Jose Bowers MD HEMATOLOGY ORDERABLES Edited INTERFACE SYSTEM Refer to clinic/hospital department documented in this encounter Visit Diagnoses Diagnosis Pain in joint, pelvic region and thigh- Primary documented in this encounter Additional Health Concerns Infection Onset Date Last Indicated Resolved Time MRSA Comment:Kapil 10/26/15 10/27/2015 10/27/2015 documented as of this encounter Care Teams Concrete Mixer Operator Relationship Specialty Start Date End Date Jose Bowers MD [address] [place] [id number] PCP - General 12/31/05 documented as of this encounter
--- OUTSIDE RECORDS SUMMARY | 2025-04-03 15:40 | XMS_ITS | Encounter Summary ---
Author Organization [facility] Address [address] [place] [address] Care Team Providers Care Caul Puller Name Role Phone Jose Bowers MD Primary Care Provider Unavailab le Encounter Details Date Type Department Care Team (Late st Contact Info) Description 10/02/2006 Outpatient Historical [facility] Physical Med and Rehab- [place] [address] [place] [phone] Jose Bowers MD [address] [place] [address] Paraplegia (CMS/HCC) (Primary Dx) Social History Tobacco Use Types Packs/Day Years Used Date Smoking Tobacco: Never Assessed Comments Unknown Sex and Gender Information Value Date Recorded Sex Assigned at Not on file Legal Sex Female 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
--- OUTSIDE RECORDS SUMMARY | 2025-04-03 15:40 | XMS_ITS | Encounter Summary ---
Author Organization [facility] Address [address] [place] [address] Care Team Providers Care Corn Cooker Name Role Phone Jose Bowers MD Primary Care Provider Unavailab le Encounter Details Date Type Department Care Team (Late st Contact Info) Description 12/31/2006 Outpatient Historical [facility] Physical Med and Rehab- [place] [address] [place] [phone] Jose Bowers MD [address] [place] [address] Paraplegia (CMS/HCC) (Primary Dx) Social History Tobacco Use Types Packs/Day Years Used Date Smoking Tobacco: Never Assessed Comments Unknown Sex and Gender Information Value Date Recorded Sex Assigned at Not on file Legal Sex Female 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
--- OUTSIDE RECORDS SUMMARY | 2025-04-03 15:40 | XMS_ITS | Data Portability ---
Author Organization [facility] Victor Manuel Murrell [facility] Address [address] [facility] [address] [place] [address] Care Team Providers Care Chairman And Ceo Name Role Phone CHARY BENSON Primary Care Provider Assessment Encounter Date Assessment Date Assessment LastModified by Organization Details LastModified Time 11/11/2024 11/11/2024 Will need follow-up in [place] given her complex health issues. We will help arrange transportation and utilize her care coordinators to do this. Patient would likely benefit from a temporary stay from skilled facility but the patient has stated that this is not an option for her. Continue TPN as outlined by specialist in [place]. Daughter states that she is not having any difficulty managing this part of the patient's care. [email or web address] Not available 11/12/2024 18:14:43 Plan of Treatment Reminders Order Date Submit Date Provider Last Modified By Organization Details Last Modified Time Details Appointments None recorded. Lab CBC w/ auto diff 2024 025 [email or web address] 23 [facility], [address], [facility] [address], [place], [address], 5 11:55:50 Referral physical therapist referral 2024 025 [email or web address] 8 [facility], [address] [place], [address], 5 11:04:27 wound care referral [address] [facility], [address] [place], [address], 12:40:56 Procedures None recorded. Surgeries None recorded. Imaging None recorded. Medication Orders Eliquis 5 mg tablet 2024 [facility], [address], [place], [address], 14:16:01 Vashe 0.033 % irrigation solution 2024 025 [facility], [address], [place], [address], 14:40:30 Patient TargetsNo targets recorded. Patient InstructionsNo instructions recorded. Reason for Referral Referring Physician: Chary Benson [facility], Encounter Date: 11/11/2024 Physical Therapist Referral for Paraplegia Referring Physician: Chary Benson [facility], Encounter Date: 11/11/2024 Results Created Date Observation Date Name Description Value Unit Range Abnormal Flag Note LastModifiedBy Organization Detail LastModifiedTime 03/02/2003/02/2025 CBC WBC 7.9 x10 4.0-10 .5 Not Available [facility] [address] [facility] [address], [place], [address], 03/02/2025 15:34:25 03/02/2003/02/2025 CBC RBC 3.48 x10 3.50-5 .50 low Not Available [facility] [address] [facility] [address], [place], [address], 03/02/2025 15:34:25 03/02/2003/02/2025 CBC HGB 11.1 g/dL 12.0-1 6.0 low Not Available [facility] [address] [facility] [address], [place], [address], 03/02/2025 15:34:25 03/02/2003/02/2025 CBC HCT 33.8 % 37.0-4 7.0 low Not Available [facility] [address] [facility] 1, [place], [address], 03/02/2025 15:34:25 03/02/2003/02/2025 CBC MCV 97.2 fL 80.0-9 9.9 Not Available [facility] [address] [facility] 1, [place], [address], 03/02/2025 15:34:25 03/02/2003/02/2025 CBC MCH 32.0 pg 27.0-3 2.0 Not Available [facility] [address] [facility] 1, [place], [address], 03/02/2025 15:34:25 03/02/2003/02/2025 CBC MCHC 32.9 g/dL 32.0-3 6.0 Not Available [facility] [address] [facility] 1, [place], [address], 03/02/2025 15:34:25 03/02/2003/02/2025 CBC RDW 14.4 % 11.5-1 4.5 Not Available [facility] [address] [facility] 1, [place], [address], 03/02/2025 15:34:25 03/02/2003/02/2025 CBC plt 301.8 x10 140.0- 451.0 Not Available [facility] [address] [facility] 1, [place], [address], 03/02/2025 15:34:25 03/02/2003/02/2025 CBC lymphocytes % 8.1 % 20.0-5 0.0 low Not Available [facility] [address] [facility] 1, [place], [address], 03/02/2025 15:34:25 03/02/20 25 03/02/2025 CBC granulcytes % 78.6 % 30.0-7 0.0 high Not Available [facility] [address] [facility] [address], [place], [address], 03/02/2025 15:34:25 03/02/20 25 03/02/2025 CBC monocytes % 12.8 % 2.0-16 .0 Not Available [facility] [address] [facility] [address], [place], [address], 03/02/2025 15:34:25 03/02/20 25 03/02/2025 CBC granulcytes# 6.2 x10 Not Orquidea ilable [facility] [address] [facility] [address], [place], [address], 03/02/2025 15:34:25 03/02/20 25 03/02/2025 CBC lymphocytes # 0.6 x10 Not Available [facility] [address] [facility] [address], [place], [address], 03/02/2025 15:34:25 03/02/20 25 03/02/2025 CBC monocytes # 1.0 x10 Not Avai lable [facility] [address] [address], [place], [address], 03/02/2025 15:34:25 Result Notes None recorded. Problems Name Problem SNOMED Code Status Onset Date Resolution Date Notes Provider Name and Address Organization Details Recorded Time Chest pain 97920897 Active 2024 VÍCTOR Gonzales - [facility] 12:14:01 Spinal cord injury 80535574 Active 2024 VÍCTOR Gonzales - [facility] 12:15:09 Liver enzymes level above reference range 689744796 Active 2024 [facility] [place] 12:14:28 Pressure injury of buttock 446709831 Active 2024 Raquel thibodeaux, [facility] 5 12:14:59 Spasm 28595608 Active 2024 [facility] [place] 5 12:15:29 Major depressive disorder 746544933 Active 2024 Raqueldanny Rosario [facility]Federal [facility] [place] 5 12:14:49 Paraplegia 08986895 Active 2024 [facility] [place] 5 12:14:42 Chronic urinary tract infection 239150726 Active 2024 [facility]eldanyn [facility] [place] 5 12:14:13 Open wound 898651570 Active 2024 [facility] [place] 20:01:46 History of deep vein thrombosis 929249672 Active 2024 [facility] [place] 20:12:38 Nausea 254215060 Active 2024 [facility] [place] 20:14:53 Gastric reflux 673812166 Active 2024 Raquel Rosario [facility]Federal [facility] [place] 20:17:14 Chronic pain syndrome 842385395 Active 2024 [facility] [place] 5 20:19:08 Colostomy present 945072694 Active 2024 Chary Benson MD [address] [place] [address] [place], [address] [place] [address] 5, [facility] 5 12:52:43 Gastrointestin al hemorrhage 85926695 Active 2024 Chary Benson MD [address] [place] [address], [address] [place] [address] 5, [facility], LL[facility]isaL.CLuisa 5 14:21:55 Altered mental status 017309250 Active 2024 Chary Benson MD [address] [place] [address], [address] [place] [address] 5, [facility]isa 5 11:28:17 Visual hallucinations 80277808 Active 2024 Chary Benson MD [address] [place] [address], [address] [place] [address] 5, [facility], LL[facility]isaLLuisaCLuisa 5 11:28:35 Acute urinary tract infection 609252116 Active 2024 Chary Benson MD [address] [place] [address], [phone], [facility], L[facility]CL[facility]isa 5 13:29:28 Problem Notes None recorded. Medical Equipment None Reported. Allergies Allergen ID Allergen Name Allergen Category Reaction Reaction Severity Criticality Documentation Date Start Date Code Code System Note Provider Name and Address Organization Details Recorded Time 06651 adhesive tape environme nt,medica tion Not available Not available Not available 08/03/2024 DURGA thibodeaux [facility] 5 12:01:54 38475 Ultram medicatio n Not available Not available Not available 08/03/2024 60064 6 RxNorm DURGA thibodeaux [facility] 5 12:02:02 11806 Zithromax medicatio n Not available Not available Not available 08/03/2024 48854 4 RxNorm MCKALE LISA [facility]Federal [facility] [place] 12:02:09 68693 azithromy travis medicatio n Not available Not available Not available 08/03/2024 56697 RxNorm [facility] [place] 5 12:02:19 42533 Product containin g penicilli n (product) medicatio n Not available Not available Not available 08/03/2024 69355 8001 SNOMED GUILLERMO [facility]odeauxFederal [facility] [place] 5 12:02:26 28179 vancomyci n medicatio n Not available Not available Not available 08/03/2024 10608 RxNorm [facility] [place] 12:02:32 Medications Name Sig Start Date Stop Date Status Note LastModified by Organization Details LastModified Time gabapentin 600 mg tablet TAKE 1 TABLET BY MOUTH ONCE DAILY AT BEDTIME active Not Available Not Available No t Available clindamycin HCl 300 mg capsule TAKE 1 CAPSULE BY MOUTH TWICE DAILY 08/03 completed Not Available Not Available Not Available loperamide 2 mg capsule take 2 capsules BY MOUTH FOUR TIMES DAILY active Not Available Not Available No t Available trazodone 50 mg tablet TAKE 1/2 (ONE-HALF ) TABLET BY MOUTH ONCE DAILY AT BEDTIME active Not Available Not Available No t Available cefpodoxime 200 mg tablet TAKE 1 TABLET BY MOUTH TWICE DAILY WITH FOOD 08/03 completed Not Available Not Available Not Available azithromyci n 250 mg tablet TAKE 2 TABLETS BY MOUTH ON DAY 1, AND THEN TAKE 1 TABLET BY MOUTH ONCE A DAY ON DAY 2 THROUGH DAY 5 08/03 completed Not Available Not Available Not Available fluconazole 150 mg tablet TAKE 1 TABLET BY MOUTH EVERY 3 DAYS FOR 3 DOSES 03/02 completed Not Available Not Available Not Available sulfamethox azole 400 mg-trimetho prim 80 mg tablet TAKE 1 TABLET BY MOUTH ONCE DAILY 08/03 completed Not Available Not Available Not Available albuterol sulfate 1.25 mg/3 mL solution for nebulizatio n USE 6 ML IN NEBULIZER EVERY 4 HOURS NEEDED FOR SHORTNESS OF BREATH AND FOR WHEEZING active Not Available Not Available No t Available hydrocodone 5 mg-acetamin ophen 325 mg tablet TAKE 1 TABLET BY MOUTH EVERY 4 HOURS NEEDED FOR PAIN 11/11 completed Not Available Not Available Not Available ondansetron HCl 4 mg tablet TAKE 1 TABLET BY MOUTH EVERY 6 HOURS NEEDED FOR NAUSEA AND VOMITING 03/02 completed Not Available Not Available Not Available isosorbide mononitrate ER 30 mg tablet,exte nded release 24 hr TAKE ONE TABLET BY MOUTH DAILY for 30 days 11/11 completed Not Available Not Available Not Available dexamethaso ne 6 mg tablet TAKE 1 TABLET BY MOUTH ONCE DAILY 08/03 completed Not Available Not Available Not Available clindamycin HCl 150 mg capsule TAKE 1 CAPSULE BY MOUTH THREE TIMES DAILY 08/03 completed Not Available Not Available Not Available venlafaxine ER 150 mg capsule,ext ended release 24 hr TAKE 1 CAPSULE BY MOUTH ONCE DAILY AT BEDTIME FOR DEPRESSIO N active Not Available Not Available No t Available diphenoxyla te-atropine 2.5 mg-0.025 mg tablet take 2 tablets BY MOUTH FOUR TIMES DAILY active Not Available Not Available No t Available potassium chloride ER 10 mEq tablet,exte nded release TAKE 2 TO 3 TABLETS BY MOUTH AT BEDTIME 11/11 completed Not Available Not Available Not Available ciprofloxac in 500 mg tablet TAKE 1 TABLET BY MOUTH TWICE DAILY FOR 7 DAYS 08/03 completed Not Available Not Available Not Available sulfamethox azole 800 mg-trimetho prim 160 mg tablet TAKE 1 TABLET BY MOUTH TWICE DAILY FOR 7 DAYS 08/03 completed Not Available Not Available Not Available omeprazole 40 mg capsule,del ayed release TAKE 1 CAPSULE BY MOUTH IN THE EVENING FOR GASTRIC REFLUX 03/02 completed Not Available Not Available Not Available ondansetron 8 mg disintegrat ing tablet DISSOLVE 1 TABLET IN MOUTH THREE TIMES DAILY NEEDED FOR NAUSEA AND VOMITING active Not Available Not Available No t Available baclofen 20 mg tablet TAKE 1 TABLET BY MOUTH ONCE DAILY AT BEDTIME active Not Available Not Available No t Available sodium chloride 0.9 % irrigation solution USE DIRECTED FOR WOUND IRRIGATIO N DAILY FOR 30 DAYS active Not Available Not Available No t Available methenamine hippurate 1 gram tablet TAKE 1 TABLET BY MOUTH TWICE DAILY 08/03 completed Not Available Not Available Not Available cephalexin 500 mg capsule TAKE 1 CAPSULE BY MOUTH EVERY 6 HOURS FOR 7 DAYS 03/02 completed Not Available Not Available Not Available pantoprazol e 40 mg tablet,[place] yed release TAKE 1 TABLET BY MOUTH TWICE DAILY active Not Available Not Available No t Available warfarin 5 mg tablet TAKE ONE TABLET BY MOUTH ON SATURDAY, SATURDAY, SATURDAY , SATURDAY, AND SATURDAY. TAKE ONE AND ONE-HALF TABLET BY MOUTH DAILY ON SATURDAY AND 11/11 completed Not Available Not Available Not Available enoxaparin 150 mg/mL subcutaneou s syringe waste 20 MG directed THEN INJECT 130mg SUBCUTANE OUSLY EVERY TWELVE HOURS for SEVEN DAYS 11/11 completed Not Available Not Available Not Available furosemide 20 mg tablet TAKE 1 TO 2 TABLETS BY MOUTH ONCE DAILY NEEDED FOR EDEMA 11/11 completed Not Available Not Available Not Available gabapentin 100 mg capsule TAKE 1 CAPSULE BY MOUTH ONCE DAILY IN THE MORNING 03/02 completed Not Available Not Available Not Available methylpredn isolone 4 mg tablets in a dose pack TAKE DIRECTED 08/03 completed Not Available Not Available Not Available albuterol sulfate HFA 90 mcg/actuati on aerosol inhaler INHALE 2 PUFFS BY MOUTH EVERY 4 HOURS NEEDED FOR SHORTNESS OF BREATH OR WHEEZING 03/02 completed Not Available Not Available Not Available cefdinir 300 mg capsule TAKE 1 CAPSULE BY MOUTH ONCE DAILY active Not Available Not Available No t Available metoclopram donn 10 mg tablet TAKE 1 TABLET BY MOUTH EVERY 8 HOURS FOR 14 DAYS 11/11 completed Not Available Not Available Not Available enoxaparin 60 mg/0.6 mL subcutaneou s syringe 11/11 completed Not Available Not Available Not Available cholecalcif venkat (vitamin D3) 10 mcg/mL (400 unit/mL) oral drops TAKE 10ML BY MOUTH DAILY 03/02 completed Not Available Not Available Not Available Xarelto 20 mg tablet TAKE 1 TABLET BY MOUTH ONCE DAILY WITH SUPPER 03/02 completed Not Available Not Available Not Available Eliquis 5 mg tablet TAKE 1 TABLET BY MOUTH TWICE DAILY active Not Available Not Available No t Available Vashe 0.033 % irrigation solution Take 1 irrigatio n twice a day by irrigatio n route. 05/07/ 2025 active Not Available Not Available Not Avai lable Vitals Date Recorded Body temperature Oxygen saturation Oxygen saturation in Arterial blood by Pulse oximetry Heart rate Systolic And Diastolic Provider Name and Address Organization Details Last Updated DateTime 5 97.2 [degF] 97 % 97 % 61 /min 130/84 mm[Hg] DURGA GONZALEZ [facility] 5 12:16:04 Date Recorded Body height Body mass index (BMI) Body weight Oxygen saturation Oxygen saturation in Arterial blood by Pulse oximetry Heart rate Respiratory rate Body temperature Systolic And Diastolic Provider Name and Address Organization Details Last Updated DateTime 5 160.02 cm 44.8 kg/m2 743575. 87 g 96 % 96 % 82 /min 20 /min 97.2 [degF] 112/70 mm[Hg] [facility] 5 14:11:50 Date Recorded Body height Body mass index (BMI) Body weight Oxygen saturation Oxygen saturation in Arterial blood by Pulse oximetry Heart rate Respiratory rate Body temperature Systolic And Diastolic Provider Name and Address Organization Details Last Updated DateTime 5 160.02 cm 42.2 kg/m2 109843. 98 g 98 % 98 % 107 /min 18 /min 97.6 [degF] 128/70 mm[Hg] [facility] 5 13:58:32 Date Recorded Body height Body mass index (BMI) Body weight Body temperature Oxygen saturation Oxygen saturation in Arterial blood by Pulse oximetry Heart rate Systolic And Diastolic Provider Name and Address Organization Details Last Updated DateTime 5 160.02 cm 42.2 kg/m2 204762. 98 g 98.4 [degF] 99 % 99 % 91 /min 108/68 mm[Hg] [facility] 5 11:12:43 Social History Question Answer Notes LastModified by Organizat ion Details LastModified Time Tobacco Smoking Status Never Smoker [facility] 08/03/2024 12:10:29 What Is Your Level Of Caffeine Consumption? Moderate Information not available 08/03/2024 What Type Of Diet Are You Following? REGULAR Information not available 08/03/2024 What Was The Date Of Your Most Recent Tobacco Screening? 03/11/2025 [email or web address] Information not available 03/11/2025 Do You Have Difficulty Walking Or Climbing Stairs? Yes Information not available 08/03/2024 Do You Have Any Dietary Restrictions? No Information not available 08/03/2024 Sex: Unknown Functional Status Question Answer Note LastModified by Organizat ion Details LastModified Time Do you use any illicit or recreational drugs? No Information not available 08/03/2024 What is your level of alcohol consumption? None Information not available 08/03/2024 Are you currently employed? No Information not available 08/03/2024 Are you able to walk independently without assistance or assistive devices? NOCHAIR Information not available 08/03/2024 Mental Status None recorded. Family History Nothing Reported Notes:cancer diabetes heart disease HTN rheumatic fever: dad and brother Medical History No medical history recorded. Gynecological HistoryNo gynecological history recorded. Obstetrics History GPAL:G 0 P 0 0 0 0 Immunizations Vaccine Type Date Status Note Provider Nam e and Address Organization Details Recorded Time Influenza, split virus, trivalent, preservative 3 completed Not Available [facility] 03/11/2025 11:01:06 Influenza, split virus, trivalent, preservative 4 completed Not Available [facility] 03/11/2025 11:01:06 Influenza, split virus, trivalent, PF 5 completed Not Available [facility] 03/11/2025 11:01:06 Past Encounters Encounter ID Performer Location Encounter Start Date Encounter Closed Date Diagnosis/Indication Diagnosis SNOMED-CT Code Diagnosis ICD10 Code Diagnosis IMO Codes Diagnosis Note [id number] Chary Benson MD [facility] ([facility]) [address] [place] [address] 08/03/2024 11:40:14 08/03/2024 12:29:41 Chest pain 31161365 R07.9 Continue with stress test as ordered. History of deep vein thrombosis 676324895 Z86.718 Patient is on warfarin and and does her own INR at home. Liver enzy mes level above reference range 232713595 R74.01 We will await ultrasound results. Spinal cord injury 64912 004 S24.112S Pressure i njury of buttock 216161844 L89.309 Continue with wound care Spasm 75965552 R25.2 Continue current medication s. Major depr essive disorder 861768712 F32.9 Continue venlafaxin e Paraplegia 06440356 G82. 20 Chronic ur inary tract infection 677174425 N39.0 Continue cefdinir and urology follow-up [id number] Chary Benson MD [facility] ([facility]) [address] [place] [phone] 11/11/2024 14:04:08 11/11/2024 16:15:28 History of surgery 525618847 Z93.9 60728667 Open wound 640408890 T14 .8XXA 78648 Irrigation sWill send referral to wound care. Will send prescripti on for lotion to help with leg continue to manage the wound. Paraplegia 11778069 G82. 20 Send referral for physical therapy. [id number] Chary Benson MD [facility] ([facility]) [address] [place] [phone] 03/02/2025 13:15:58 03/02/2025 14:35:18 History of deep vein thrombosis 938868572 Z86.181 2965122 The patient does need to be on some sort of blood thinner given her history of blood clots and PE. We will try Eliquis as it does have data to support less GI bleeding. We will start this medication assuming her blood counts come back better. Gastrointe stinal hemorrhage 77744227 K92.2 231411321 Her last hemoglobin was 9.7. Will recheck blood counts today. Patient denies any more bleeding in her stools. [id number] Chary Benson MD [facility] ([facility]) [address] [place] [phone] 03/11/2025 11:00:57 03/11/2025 11:45:12 Altered mental status 528703569 R41.82 6117745948 This appears to be improving after treatment for UTI Visual hallucinations 64 614557 R44.1 16954 These have resolved. Urinary ca theter in situ 918427149 Z97.8 2785485 Continue antibiotic s and follow-up with urology. Acute urin lisa tract infection 315957190 N39.0 847410 Continue cefdinir and urology follow-up Health Concerns Section Related Observation LastModified by Organization Detai ls LastModified Time None Recorded Concern Status LastModified by Organization Details LastModified Time None Recorded Advance Directives Directive None Recorded Payers Insurance Date Sequence Insurance Name Policy Number Policy Rodriguez Covered Member ID Rodriguez Member ID Guarantor Name 08/14/2024 1 [facility] [place] Jami Gandhi [id number] Jami Gandhi 03/10/2025 1 [facility] [place] - [place]MO) MOD[employer] Jami Gandhi [id number] Jami Gandhi 03/10/2025 2 [place] Jami Gandhi [id number] Jami Gandhi 03/10/2025 [place] [facility] Jami Gandhi [id number] Jami Gandhi Notes Date Note Type Note Provider Name and Address Organization Details Recorded Time 08/03/2024 text/html Pt is here to est. Pt was seeing Dr. Ordaz.Pt states that she is having u/s on liver tomorrow due to elevated liver enzymes and having stress test saturday d/t chest pain.The patient is a t4 paraplegic, has spasms due to this. She has a history of blood clots , depression ,heart burn , chronic uti. She reports that these conditions are stable and managed with current medications.pt sees wound care weekly for wound on bottom. Chary Benson MD [address] [place] [address], [phone], [facility], [place] 08/05/2024 17:13:17 11/11/2024 text/html This is a 54-year-old female that comes in today for hospital follow-up. Patient is currently getting TPN through a central line. Patient's daughter is able to manage this for her. The patient has a fistula and ostomy that are connected to drain tubes currently. Patient has a significant left-sided abdominal wound that is chronic and needs wound care. The patient would like a referral for physical therapy manage strength in her upper body. Possible he did try to attempt to get the patient home health but no home health agencies locally would take her. The patient declined fci ability. Patient has follow-ups in [place] but is currently having transportation issues. She is able to make her local appointments. Chary Benson MD [address] [place] [address], [phone], [facility] 11/12/2024 18:15:08 03/02/2025 text/html ROS as noted in the HPI patient here for a hospital f/u from [facility] for 4 days for blood in her stool. they put her xeralto on hold and she is currently not on any blood thinner. The patient is concerned about her blood levels because she has noticed that her fingernails are no longer pink. Her caregiver also has paperwork that needs to be filled out for her recent hospitalization. Chary Benson MD [address] [place] [address], [phone], [facility] [facility] 03/08/2025 08:16:25 03/11/2025 text/html Pt here today for hospital follow upThe patient had episode of vision difficulty and word finding. The patient was also hallucinating.Anastasiya ba reports that this is not normal for her. The patient did go to the ER and was diagnosed with UTI and started on antibiotics. The patient actually is doing better today.She states she has tremors now and would like to know why. They are intermittent and does not appear to be caused by any specific trigger. Chary Benson MD [address] [place] [address], [phone], [facility] 03/13/2025 13:29:52 OBGyn Episode No OBEpisode recorded.
--- OUTSIDE RECORDS SUMMARY | 2025-04-03 15:40 | XMS_ITS | Encounter Summary ---
Author Organization [facility] Address [address] [place] [address] Care Team Providers Care Taxi Dancer Name Role Phone Jose Bowers MD Primary Care Provider Unavailab le Encounter Details Date Type Department Care Team (Late st Contact Info) Description 01/30/2007 Outpatient Historical [facility] [place] [facility] [place] [address] [place] [id number] Jose Bowers MD [address] [place] [address] Paraplegia (CMS/HCC) (Primary Dx) Social History Tobacco Use Types Packs/Day Years Used Date Smoking Tobacco: Never Assessed Comments Unknown Sex and Gender Information Value Date Recorded Sex Assigned at Not on file Legal 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
--- OUTSIDE RECORDS SUMMARY | 2025-04-03 15:40 | XMS_ITS | Encounter Summary ---
Author Organization [facility] Address [address] [place] [address] Care Team Providers Care Pinking Sewing Machine Operator Name Role Phone Jose Bowers MD Primary Care Provider Unavailab le Encounter Details Date Type Department Care Team (Late st Contact Info) Description 07/04/2004 Outpatient Historical [facility] Calvin Odonnell MD [address] [place] [id number] Social History Tobacco Use Types Packs/Day Years Used Date Smoking Tobacco: Never Assessed Comments Unknown Sex and Gender Information Value Date Recorded Sex Assigned at Not on file 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
--- OUTSIDE RECORDS SUMMARY | 2025-04-03 15:40 | XMS_ITS | Encounter Summary ---
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 The new reference ranges are Males 38-174 Females 26-140 The old referance ranges were Males 0-155 Females 0-133 12/31/2005 12:4 8 PM CDT Jose Bowers MD CHEMISTRY ORDERABLES Final Resul t Performing Organization Address [facility] Phone Number INTERFACE SYSTEM Refer to clinic/hospital department * C-REACTIVE PROTEIN (12/31/2005 12:48 PM CDT) CRP 0.85 0.00 - 1.00 mg/dL INTERFACE SYSTEM 12/31/2005 12:4 8 PM CDT Jose Bowers MD CHEMISTRY ORDERABLES Final Resul t Performing Organization Address [facility] Phone Number INTERFACE SYSTEM Refer to clinic/hospital department * SEDIMENTATION RATE (12/31/2005 12:48 PM CDT) ESR (SEDIMENTATION RATE) 18 0 - 22 mm/hr INTERFACE SYSTEM 12/31/2005 12:4 8 PM CDT Jose Bowers MD HEMATOLOGY ORDERABLES Final Resu lt Performing Organization Address [facility] Phone Number INTERFACE SYSTEM Refer to [...] documented in this encounter Visit Diagnoses Diagnosis Paraplegia- Primary documented in this encounter Additional Health Concerns Infection Onset Date Last Indicated Resolved Time MRSA Comment:Kapil 10/26/15 10/27/2015 10/27/2015 documented as of this encounter Care Teams Milk Powder Grinder Relationship Specialty Start Date End Date Jose Bowers MD [address] [place] [id number] PCP - General 12/31/05 documented as of this encounter
--- NOTE | 2025-04-03 16:39 | XRR_ITS ---
PROCEDURE INFORMATION: Exam: XR Chest Exam date and time: 04/03/2025 5:27 PM Age: 55 years old Clinical indication: Other: Fatigue; Prior surgery; Surgery date: 6+ months; Surgery type: Ivc filter, unidentified internal chest cath, gall bladder, colostomy TECHNIQUE: Imaging protocol: Radiologic exam of the chest. Views: 1 view. COMPARISON: CR XR chest 1V portable [id number] 03/09/2025 8:06 AM FINDINGS: Tubes, catheters and devices: Right large bore central venous catheter with tip in the right atrium. Lungs: Unremarkable. No consolidation. Pleural spaces: Unremarkable. No pleural effusion. No pneumothorax. Heart/Mediastinum: Unremarkable. No cardiomegaly. Bones/joints: Unremarkable. Other findings: No acute intrathoracic abnormality. XR/XR chest 1V portable [id number] IMPRESSION: No acute intrathoracic abnormality.
--- NOTE | 2025-04-03 16:39 | CTR_ITS ---
PROCEDURE INFORMATION: Exam: CT Head Without Contrast Exam date and time: 04/03/2025 5:45 PM Age: 55 years old Clinical indication: Pain; Headache; C/O ESQUIVEL TECHNIQUE: Imaging protocol: Computed tomography of the head without contrast. Total images: 91 Radiation optimization: All CT scans at this facility use at least one of these dose optimization techniques: automated exposure control; mA and/or kV adjustment per patient size (includes targeted exams where dose is matched to clinical indication); or iterative reconstruction. COMPARISON: 1. CT head wo con* [id number] 03/09/2025 8:[address] head wo con* [id number] 08/05/2018 7:55 PM RADIATION DOSE METRICS: Total DLP (mGy-cm): 1155.28 FINDINGS: Brain: Brain parenchyma mild generalized involutional (atrophic) changes. Mild deep white matter low attenuation, a nonspecific finding most frequently accounted for by chronic microangiopathic changes in a patient of this age, which can be interpreted based on clinical context. Bilateral outer putamen of lentiform nucleus, external capsule, areas of low attenuation almost certainly representing old lacunar infarctions. No specific abnormal density within the brain parenchyma. No mass-effect or edema, or pathologic shift of midline structures. No acute intracranial hemorrhage. Satisfactory braden-white matter differentiation. Normal anatomy of the posterior fossa, cerebellum, tatiana and medulla allowing for the degree of cerebral parenchymal volume loss. Cerebral ventricles: CSF spaces demonstrate mild generalized enlargement of the ventricles, cisterns and other subarachnoid spaces commensurate with patient's age. Paranasal sinuses: The sinuses are normal. Normal paranasal sinuses and nasal antral passageways. Mastoid air cells: Mastoid air cells and tympanic cavities appear aerated without pathologic fluid accumulation. Well-aerated mastoid air cells and tympanic cavities. Auditory system: Right external auditory canal debris likely represents excess cerumen (earwax). Orbital cavities: Normal globes and orbits. Teeth: Metallic dental amalgam fillings noted incidentally accounting for imaging artifact, mentioned for completeness and otherwise not known to be of clinical significance. Bones: No acute skull abnormalities are seen. No facial bone fracture identified. Normal calvarium, facial bones, visualized portions of the skull base, temporal bones. Soft tissues: Soft tissues are normal as visualized, demonstrating no masses or induration. Normal scalp and facial soft tissues. Vasculature: Satisfactory major vessel density and caliber characteristic of flowing intravascular blood. CT/CT head wo con* [id number] IMPRESSION: 1. No acute intracranial abnormalities or adverse interval change identified. Specifically no CT evidence of mass, hemorrhage, or acute infarction. 2. Stable bilateral external capsule/peripheral putamen (lentiform nucleus) areas of low attenuation, not significantly changed compared with prior CT head 03/09/2025, compatible with old lacunar infarctions. 3. Age-expected cerebral atrophy with chronic small vessel ischemic changes. COMMENTS: Noncontrast head CT is not sensitive for the detection of ischemic infarct. If acute ischemic infarct is of high clinical concern, additional imaging with brain MRI is recommended if readily available.
--- NOTE | 2025-04-03 16:40 | W.ED.GENADLT ---
Documented by User: BAILEY Xie 04/03/25 22:36 HPI - General Adult General: Chief complaint: General Medical Stated complaint: ABD Pain Head Pain Source: patient and family Mode of arrival: wheelchair Limitations: no limitations History of Present Illness: The patient is a 55-year-old female presents to ED today along with family for evaluation of a headache as well as increased daytime sleepiness. Family states she will sometimes fall asleep in the middle of a conversation. She feels like her headache is at the top of her head and has been present over the past few days. No injury or trauma. Her blood pressure was normal upon arrival. She has no neck pain or neck stiffness. No fever. Patient is alert and oriented at time of arrival with no focal deficits. She also complains of abdominal pain. States she has chronic pain but that it is worse than her normal. She has history of suprapubic catheter as well as colostomy. She states her suprapubic has not been draining. She has appointment with her urologist, Dr. Pickett, at [facility] on Saturday. Onset (ago): day(s) Pain Consistency: constant Relieving factors: none Exacerbating factors: none Associated symptoms: Reports headache(s); Deny chest pain, confusion, dyspnea, malaise, rash or vomiting Treatments prior to arrival: none Related Data Home Medications ?Medication ?Instructions ?Recorded ?Confirmed gabapentin 600 mg tablet 600 mg PO BEDTIME 04/12/20 03/04/25 venlafaxine 150 mg 150 mg PO BEDTIME 04/12/20 03/04/25 capsule,extended release 24 hr baclofen 20 mg tablet 20 mg PO BEDTIME 02/26/23 03/04/25 trazodone 50 mg tablet 25 mg PO BEDTIME 09/24/23 03/04/25 diphenoxylate-atropine 2.5 2 tab PO QID 02/04/25 03/04/25 mg-0.025 mg tablet loperamide 2 mg capsule 4 mg PO QID PRN Diarrhea 02/04/25 03/04/25 omeprazole 40 mg capsule,delayed 40 mg PO DAILY 02/04/25 03/04/25 release sulfamethoxazole 400 1 tab PO DAILY 02/04/25 03/04/25 mg-trimethoprim 80 mg tablet ondansetron 8 mg disintegrating 8 mg PO TID PRN Nausea And Vomiting 02/23/25 03/04/25 tablet apixaban 5 mg tablet (Eliquis) 5 mg PO BID 03/04/25 03/04/25 pantoprazole 40 mg tablet,delayed 40 mg PO BID 03/04/25 03/04/25 release Previous Rx's ?Medication ?Instructions ?Recorded prothrombin time/INR test metr #30 ea 08/24/24 Allergies Allergy/AdvReac Type Severity Reaction Status Date / Time levofloxacin (From Levaquin) Allergy Unknown Unknown Verified 02/22/25 13:52 azithromycin Allergy Unknown Verified 02/22/25 13:52 Penicillins Allergy Unknown Verified 02/22/25 13:52 tramadol (From Ultram) Allergy Unknown Verified 02/22/25 13:52 vancomycin Allergy Unknown Verified 02/22/25 13:52 amoxicillin AdvReac Unknown ADR-Seizure Verified 02/22/25 13:52 Review of Systems Const: Reports: fatigue and daytime sleepiness; Denies: fever(s), chills, body aches or malaise Eyes: Denies: change in vision, blurry vision, photophobia, floaters or seeing flashes Card: Denies: chest pain Resp: Denies: dyspnea, productive cough, non-productive cough or chest congestion GI: Reports: abdominal pain; Denies: vomiting or change in bowel habits : Reports: other (non-draining suprapubic cath); Denies: flank pain Musc: Denies: neck pain, back pain, extremity pain or joint pain Skin/Breast: Denies: rash Neuro: Reports: headache(s); Denies: numbness in extremities, weakness in extremities, sensory changes, confusion, Slurred speech present, difficulty communicating thoughts or seizure-like activity [facility] ED PFSH: Medical History Shock Groin hematoma BMI 50.0-59.9, adult Chronic anticoagulation History of angiography 2015 abdominal angiography and lower extremity angiography - normal abdominal aorta, pelvic vessels normal, all lower extremity vessels unremarkable, 3 vessel runoff below both knees History of cardiovascular stress test 07/2024 abnormalities on myocardial perfusion scanning History of sleep study 05/2017 - cpap auto-titrating 15-19 Wound of sacral region goes to wound care clinic Abscess of sacrum Parastomal hernia Ventral incisional hernia GERD (gastroesophageal reflux disease) Depression Fracture of fifth toe, right, closed History of sleep apnea sleep study in 2017 recommended auto-titrating cpap 15-[address] Complications of surgery for ovarian cyst around 2004 resulting in bowel injury Chronic venous insufficiency of lower extremity PVD (peripheral vascular disease) History of DVT (deep vein thrombosis) (2004) and pulmonary embolism 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 Chronic osteomyelitis Neurogenic bladder Chronic cystitis Surgical History History of carpal tunnel release History of abdominal surgery (2007) excision of pelvic cysts complicated by bowel perforation, had multiple procedures including colostomy History of inferior vena caval filter placement (2004) still in place in 08/2024 History of incision and drainage (04/2019) sacral wound History of back surgery (2004) for spinal abscess x 2 History of hysterectomy (2003) S/P cholecystectomy S/P section Suprapubic catheter (~2004) following urology in [place] Family History Family/Other Diabetes Cancer CAD (coronary artery disease) Mother , at age 74 Sepsis Cancer melanoma Diabetes Father Heart disease Other Dementia Diabetes mellitus type 1 Hypertension Stroke Social History Smoking and tobacco/nicotine status: never used tobacco/nicotine Alcohol intake: never Substance/Drug Use: never Additional social history: daughter performs dressing changes twice per day, she and other family provide assistance as needed, wheelchair dependent, able to use transfer board Caregiver/support person: Yes Lives independently: Yes Marital status: Current occupational status: disabled Physical Exam Const: COMMON NORMALS: no acute distress, patient oriented x3 and alert GENERAL APPEARANCE: cooperative NUTRITIONAL APPEARANCE: obese ORIENTATION/CONSCIOUSNESS: Yes awake, Yes oriented to person, Yes oriented to place and Yes oriented to time HENMT: COMMON NORMALS: normocephalic and atraumatic HEAD & SCALP: normal to inspection, normocephalic and atraumatic FACE & SINUS: normal facial exam and face symmetric Neck/C-Spine: COMMON NORMALS: full ROM, no lymphadenopathy and no meningeal signs GENERAL: Yes normal visual inspection Resp: COMMON NORMALS: normal respiratory effort and clear to auscultation bilaterally AUSCULTATION: clear to auscultation bilaterally Cardio: COMMON NORMALS: regular rate and regular rhythm RATE: regular rate RHYTHM: regular rhythm GI: COMMON NORMALS: Soft to palpation PALPATION: Yes Soft to palpation, Yes Tenderness to palpation present (GI) (diffuse), No Guarding due to palpation present (GI) and No Rigid due to palpation OTHER: colostomy bag appears normal-reports normal output chronic suprapubic landeros : COMMON NORMALS: Yes no CVA tenderness BLADDER/KIDNEY EXAM: Yes no CVA tenderness Back/Pelvis: COMMON NORMALS: no CVA tenderness Extremity: GENERAL: Yes normal exam except as noted Neuro: COMMON NORMALS: patient oriented x3 SENSORIUM/ORIENTATION: Yes alert, Yes oriented to person, Yes oriented to place and Yes oriented to time MENINGEAL SIGNS: Yes no meningeal signs Course Consultations: Consultation #1: Dr. Deluca[facility] ED physician accepting transfer Vital Signs: Vital signs: Vital Signs Temperature 98.0 F 04/03/25 15:46 Pulse Rate 93 04/03/25 22:59 Respiratory Rate 17 04/03/25 22:59 Blood Pressure 115/63 04/03/25 22:59 Pulse Oximetry 100 04/03/25 22:59 Oxygen Delivery Me thod Nasal Cannula 04/03/25 22:57 Oxygen Flow Rate 2 04/03/25 22:57 [facility] - General Adult Medical Decision Making Patient is a 55-year-old female here complaining of headache, increased daytime sleepiness, and abdominal pain. She was found to be in acute renal failure with a BUN/Cr of 102/1.7. Her baseline is around 40/0.8. Patient has a chronic suprapubic catheter that has not been draining. We were able to exchange this for a new one but still cannot get it to drain. We have been unable to obtain a urine sample. Attempted Landeros catheter but was unsuccessful-this has been an issue in the past with patient. CT scan obtained showing moderate bilateral hydro nephrosis/hydroureter that is new. Patient will need to be transferred as her renal failure most likely due to post renal obstruction. Spoke to [facility] transfer line who requested ED to ED and will have urology consult on her from there. I spoke to ED physician Dr. Deluca who accepts. I have spoken to Dr. Richard here who agrees with decision to transfer. Medical Records I reviewed the patient's medical records. Lab Data I reviewed the patient's lab results. 04/03/25 16:56 04/03/25 16:56 Radiology Impressions Chest X-Ray 04/03/25 16:39 IMPRESSION: No acute intrathoracic abnormality. Head CT 04/03/25 16:39 IMPRESSION: 1. No acute intracranial abnormalities or adverse interval change identified. Specifically no CT evidence of mass, hemorrhage, or acute infarction. 2. Stable bilateral external capsule/peripheral putamen (lentiform nucleus) areas of low attenuation, not significantly changed compared with prior CT head 03/09/2025, compatible with old lacunar infarctions. 3. Age-expected cerebral atrophy with chronic small vessel ischemic changes. COMMENTS: Noncontrast head CT is not sensitive for the detection of ischemic infarct. If acute ischemic infarct is of high clinical concern, additional imaging with brain MRI is recommended if readily available. Abdomen/Pelvis CT 04/03/25 17:41 IMPRESSION: 1. Moderate bilateral hydronephrosis and hydroureter appearing since prior of unclear etiology. The bladder is decompressed with diffuse bladder wall thickening similar prior in the setting of suprapubic catheter which appears appropriately positioned. 2. Large ventral abdominal wall hernia similar to prior which contains both large and small bowel loops without suggestion of strangulation. 3. Status post cholecystectomy. 4. Status post hysterectomy. COMMENTS: For patients with an IVC filter, recommend assessment for a management plan for the patient's IVC filter. If there is no established management plan, recommend referral to an interventional clinician on a nonemergent basis for evaluation. Laboratory Results WBC 10.50 10^3/uL (3.29-11.43) 04/03/25 16:56 RBC 3.88 10^6/uL (3.85-5.65) 04/03/25 16:56 Hgb 11.80 g/dL (11.27-16.99) 04/03/25 16:56 Hct 37.6 % (36-47) 04/03/25 16:56 MCV 96.9 fl (85-98) 04/03/25 16:56 MCH 30.4 pg (27-33) 04/03/25 16:56 MCHC 31.4 g/dL (30-55) 04/03/25 16:56 RDW 14.2 % (12.1-15.1) 04/03/25 16:56 Plt Count 552 10^3/cmm (157-399) H 04/03/25 16:56 MPV 11.3 fL (7.4-10.4) H 04/03/25 16:56 Neut % (Auto) 69.4 % 04/03/25 16:56 Lymph % (Auto) 18.2 % 04/03/25 16:56 [place] % (Auto) 8.5 % 04/03/25 16:56 Eos % (Auto) 3.1 % 04/03/25 16:56 Baso % (Auto) 0.4 % 04/03/25 16:56 Neut # (Auto) 7.29 10^3/uL (1.8-7.7) 04/03/25 16:56 Lymph # (Auto) 1.9 10^3/uL (0.8-4.8) 04/03/25 16:56 [place] # (Auto) 0.9 10^3/uL (0.2-0.9) 04/03/25 16:56 Eos # (Auto) 0.3 10^3/uL (0.0-0.8) 04/03/25 16:56 Baso # (Auto) 0.0 10^3/uL (0.0-0.1) 04/03/25 16:56 Nucleated RBC % (auto) 0 % 04/03/25 16:56 Nucleated RBCs # 0.0 /100WBC 04/03/25 16:56 Sodium 131 mmol/L (136-145) L 04/03/25 16:56 Potassium 5.2 mmol/L (3.5-5.1) H 04/03/25 16:56 Chloride 97 mmol/L (98-107) L 04/03/25 16:56 Carbon Dioxide 21 mmol/L (22-29) L 04/03/25 16:56 Anion Gap 18.2 (5-19) 04/03/25 16:56 BUN 102 mg/dL (6-20) H* D 04/03/25 16:56 Creatinine 1.7 mg/dL (0.5-0.9) H 04/03/25 16:56 GFR Calculation 31.0 mL/min (90-130) L 04/03/25 16:56 Glucose 90 mg/dL (65-115) 04/03/25 16:56 Calculated Osmolality 303 mOsm/kg (285-295) H 04/03/25 16:56 Calcium 9.2 mg/dL (8.5-10.5) 04/03/25 16:56 Total Bilirubin 0.3 mg/dL (0.15-1.2) 04/03/25 16:56 AST 29 U/L (0-32) 04/03/25 16:56 ALT 36 U/L (0-33) H 04/03/25 16:56 Alkaline Phosphatase 179 U/L (35-105) H 04/03/25 16:56 Total Protein 8.5 g/dL (6.6-8.7) 04/03/25 16:56 Albumin 3.6 g/dL (3.5-5.2) 04/03/25 16:56 Globulin 4.9 g/dL (1.3-4.6) H 04/03/25 16:56 Lipase 29 U/L (13-60) 04/03/25 16:56 All radiology interpretation(s) finalized by discharge Discharge Plan Discharge Patient Disposition: Xfer Short-Term Hosp Clinical Impression: Obstructive uropathy Acute renal failure Qualifiers: Acute renal failure type: unspecified Qualified Code(s): N17.9 - Acute kidney failure, unspecified Condition: Stable Referrals: Marcus Benson MD [Primary Care Provider, [facility]] Patient Instructions: Opioid Safety, Pain Management, Patient Portal & Jodie Instructions Print Language: Libyan Coding Level of Care Code ED 911 Telecommunicator for Chg Fwd Documented by User: Jose Angel Richard DO 04/03/25 23:38 HPI - General Adult General: Chief complaint: General Medical Stated complaint: ABD Pain Head Pain Related Data Home Medications ?Medication ?Instructions ?Recorded ?Confirmed gabapentin 600 mg tablet 600 mg PO BEDTIME 04/12/20 03/04/25 venlafaxine 150 mg 150 mg PO BEDTIME 04/12/20 03/04/25 capsule,extended release 24 hr baclofen 20 mg tablet 20 mg PO BEDTIME 02/26/23 03/04/25 trazodone 50 mg tablet 25 mg PO BEDTIME 09/24/23 03/04/25 diphenoxylate-atropine 2.5 2 tab PO QID 02/04/25 03/04/25 mg-0.025 mg tablet loperamide 2 mg capsule 4 mg PO QID PRN Diarrhea 02/04/25 03/04/25 omeprazole 40 mg capsule,delayed 40 mg PO DAILY 02/04/25 03/04/25 release sulfamethoxazole 400 1 tab PO DAILY 02/04/25 03/04/25 mg-trimethoprim 80 mg tablet ondansetron 8 mg disintegrating 8 mg PO TID PRN Nausea And Vomiting 02/23/25 03/04/25 tablet apixaban 5 mg tablet (Eliquis) 5 mg PO BID 03/04/25 03/04/25 pantoprazole 40 mg tablet,delayed 40 mg PO BID 03/04/25 03/04/25 release Previous Rx's ?Medication ?Instructions ?Recorded prothrombin time/INR test metr #30 ea 08/24/24 Allergies Allergy/AdvReac Type Severity Reaction Status Date / Time levofloxacin (From Levaquin) Allergy Unknown Unknown Verified 02/22/25 13:52 azithromycin Allergy Unknown Verified 02/22/25 13:52 Penicillins Allergy Unknown Verified 02/22/25 13:52 tramadol (From Ultram) Allergy Unknown Verified 02/22/25 13:52 vancomycin Allergy Unknown Verified 02/22/25 13:52 amoxicillin AdvReac Unknown ADR-Seizure Verified 02/22/25 13:52 [facility] ED PFSH: Medical History Shock Groin hematoma BMI 50.0-59.9, adult Chronic anticoagulation History of angiography 2015 abdominal angiography and lower extremity angiography - normal abdominal aorta, pelvic vessels normal, all lower extremity vessels unremarkable, 3 vessel runoff below both knees History of cardiovascular stress test 07/2024 abnormalities on myocardial perfusion scanning History of sleep study 05/2017 - cpap auto-titrating 15-19 Wound of sacral region goes to wound care clinic Abscess of sacrum Parastomal hernia Ventral incisional hernia GERD (gastroesophageal reflux disease) Depression Fracture of fifth toe, right, closed History of sleep apnea sleep study in 2017 recommended auto-titrating cpap 15-[address] Complications of surgery for ovarian cyst around 2004 resulting in bowel injury Chronic venous insufficiency of lower extremity PVD (peripheral vascular disease) History of DVT (deep vein thrombosis) (2004) and pulmonary embolism 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 Chronic osteomyelitis Neurogenic bladder Chronic cystitis Surgical History History of carpal tunnel release History of abdominal surgery (2007) excision of pelvic cysts complicated by bowel perforation, had multiple procedures including colostomy History of inferior vena caval filter placement (2004) still in place in 08/2024 History of incision and drainage (04/2019) sacral wound History of back surgery (2004) for spinal abscess x 2 History of hysterectomy (2003) S/P cholecystectomy S/P section Suprapubic catheter (~2004) following urology in [place] Family History Family/Other Diabetes Cancer CAD (coronary artery disease) Mother , at age 74 Sepsis Cancer melanoma Diabetes Father Heart disease Other Dementia Diabetes mellitus type 1 Hypertension Stroke Social History Smoking and tobacco/nicotine status: never used tobacco/nicotine Alcohol intake: never Substance/Drug Use: never Additional social history: daughter performs dressing changes twice per day, she and other family provide assistance as needed, wheelchair dependent, able to use transfer board Caregiver/support person: Yes Lives independently: Yes Marital status: Current occupational status: disabled Course Vital Signs: Vital signs: Vital Signs Temperature 98.0 F 04/03/25 15:46 Pulse Rate 93 04/03/25 22:59 Respiratory Rate 17 04/03/25 22:59 Blood Pressure 115/63 04/03/25 22:59 Pulse Oximetry 100 04/03/25 22:59 Oxygen Delivery Me thod Nasal Cannula 04/03/25 22:57 Oxygen Flow Rate 2 04/03/25 22:57 [facility] - General Adult Medical Decision Making Patient is a 55-year-old female here complaining of headache, increased daytime sleepiness, and abdominal pain. She was found to be in acute renal failure with a BUN/Cr of 102/1.7. Her baseline is around 40/0.8. Patient has a chronic suprapubic catheter that has not been draining. We were able to exchange this for a new one but still cannot get it to drain. We have been unable to obtain a urine sample. Attempted Landeros catheter but was unsuccessful-this has been an issue in the past with patient. CT scan obtained showing moderate bilateral hydro nephrosis/hydroureter that is new. Patient will need to be transferred as her renal failure most likely due to post renal obstruction. Spoke to [facility] transfer line who requested ED to ED and will have urology consult on her from there. I spoke to ED physician Dr. Deluca who accepts. I have spoken to Dr. Richard here who agrees with decision to transfer. Patient originally seen by Mrs. Venegas?NICKO Solorzano. I agree with her history, evaluation, and management. Lab Data 04/03/25 16:56 04/03/25 16:56 Radiology Impressions Chest X-Ray 04/03/25 16:39 IMPRESSION: No acute intrathoracic abnormality. Head CT 04/03/25 16:39 IMPRESSION: 1. No acute intracranial abnormalities or adverse interval change identified. Specifically no CT evidence of mass, hemorrhage, or acute infarction. 2. Stable bilateral external capsule/peripheral putamen (lentiform nucleus) areas of low attenuation, not significantly changed compared with prior CT head 03/09/2025, compatible with old lacunar infarctions. 3. Age-expected cerebral atrophy with chronic small vessel ischemic changes. COMMENTS: Noncontrast head CT is not sensitive for the detection of ischemic infarct. If acute ischemic infarct is of high clinical concern, additional imaging with brain MRI is recommended if readily available. Abdomen/Pelvis CT 04/03/25 17:41 IMPRESSION: 1. Moderate bilateral hydronephrosis and hydroureter appearing since prior of unclear etiology. The bladder is decompressed with diffuse bladder wall thickening similar prior in the setting of suprapubic catheter which appears appropriately positioned. 2. Large ventral abdominal wall hernia similar to prior which contains both large and small bowel loops without suggestion of strangulation. 3. Status post cholecystectomy. 4. Status post hysterectomy. COMMENTS: For patients with an IVC filter, recommend assessment for a management plan for the patient's IVC filter. If there is no established management plan, recommend referral to an interventional clinician on a nonemergent basis for evaluation. Laboratory Results WBC 10.50 10^3/uL (3.29-11.43) 04/03/25 16:56 RBC 3.88 10^6/uL (3.85-5.65) 04/03/25 16:56 Hgb 11.80 g/dL (11.27-16.99) 04/03/25 16:56 Hct 37.6 % (36-47) 04/03/25 16:56 MCV 96.9 fl (85-98) 04/03/25 16:56 MCH 30.4 pg (27-33) 04/03/25 16:56 MCHC 31.4 g/dL (30-55) 04/03/25 16:56 RDW 14.2 % (12.1-15.1) 04/03/25 16:56 Plt Count 552 10^3/cmm (157-399) H 04/03/25 16:56 MPV 11.3 fL (7.4-10.4) H 04/03/25 16:56 Neut % (Auto) 69.4 % 04/03/25 16:56 Lymph % (Auto) 18.2 % 04/03/25 16:56 [place] % (Auto) 8.5 % 04/03/25 16:56 Eos % (Auto) 3.1 % 04/03/25 16:56 Baso % (Auto) 0.4 % 04/03/25 16:56 Neut # (Auto) 7.29 10^3/uL (1.8-7.7) 04/03/25 16:56 Lymph # (Auto) 1.9 10^3/uL (0.8-4.8) 04/03/25 16:56 [place] # (Auto) 0.9 10^3/uL (0.2-0.9) 04/03/25 16:56 Eos # (Auto) 0.3 10^3/uL (0.0-0.8) 04/03/25 16:56 Baso # (Auto) 0.0 10^3/uL (0.0-0.1) 04/03/25 16:56 Nucleated RBC % (auto) 0 % 04/03/25 16:56 Nucleated RBCs # 0.0 /100WBC 04/03/25 16:56 Sodium 131 mmol/L (136-145) L 04/03/25 16:56 Potassium 5.2 mmol/L (3.5-5.1) H 04/03/25 16:56 Chloride 97 mmol/L (98-107) L 04/03/25 16:56 Carbon Dioxide 21 mmol/L (22-29) L 04/03/25 16:56 Anion Gap 18.2 (5-19) 04/03/25 16:56 BUN 102 mg/dL (6-20) H* D 04/03/25 16:56 Creatinine 1.7 mg/dL (0.5-0.9) H 04/03/25 16:56 GFR Calculation 31.0 mL/min (90-130) L 04/03/25 16:56 Glucose 90 mg/dL (65-115) 04/03/25 16:56 Calculated Osmolality 303 mOsm/kg (285-295) H 04/03/25 16:56 Calcium 9.2 mg/dL (8.5-10.5) 04/03/25 16:56 Total Bilirubin 0.3 mg/dL (0.15-1.2) 04/03/25 16:56 AST 29 U/L (0-32) 04/03/25 16:56 ALT 36 U/L (0-33) H 04/03/25 16:56 Alkaline Phosphatase 179 U/L (35-105) H 04/03/25 16:56 Total Protein 8.5 g/dL (6.6-8.7) 04/03/25 16:56 Albumin 3.6 g/dL (3.5-5.2) 04/03/25 16:56 Globulin 4.9 g/dL (1.3-4.6) H 04/03/25 16:56 Lipase 29 U/L (13-60) 04/03/25 16:56 Discharge Plan Discharge Patient Disposition: Xfer Short-Term Hosp Clinical Impression: Obstructive uropathy Acute renal failure Qualifiers: Acute renal failure type: unspecified Qualified Code(s): N17.9 - Acute kidney failure, unspecified Condition: Stable Referrals: Marcus Benson MD [Primary Care Provider, [facility]] Patient Instructions: Opioid Safety, Pain Management, Patient Portal & Jodie Instructions Print Language: Libyan Coding Level of Care Code ED 911 Telecommunicator for Hetal Huitron
--- NOTE | 2025-04-03 17:10 | PC.NURSE ---
attemped straight cath, unable to get urine sample from pt at this time. ED provider notified.
[2025-04-03 17:11] LABS: Hematocrit 37.6 % (36-47); Hemoglobin 11.80 g/dL (11.27-16.99); Mean Corpuscular HGB Conc 31.4 g/dL (30-55); Mean Corpuscular Hemoglobin 30.4 pg (27-33); Mean Corpuscular Volume 96.9 fl (85-98); Nucleated Red Blood Cells % 0 %; Platelet Count 552 10^3/cmm (157-399); Red Blood Count 3.88 10^6/uL (3.85-5.65); White Blood Count 10.50 10^3/uL (3.29-11.43)
[2025-04-03 17:32] LABS: Alanine Aminotransferase 36 U/L (0-33); Albumin Level 3.6 g/dL (3.5-5.2); Alkaline Phosphatase 179 U/L (35-105); Anion Gap 18.2 (5-19); Aspartate Amino Transferase 29 U/L (0-32); Calcium 9.2 mg/dL (8.5-10.5); Carbon Dioxide 21 mmol/L (22-29); Chloride 97 mmol/L (98-107); Creatinine Clr Calc Pharmacy 44.0571; Globulin 4.9 g/dL (1.3-4.6); Glucose 90 mg/dL (65-115); Lipase 29 U/L (13-60); Osmolality Calculated 303 mOsm/kg (285-295); Potassium 5.2 mmol/L (3.5-5.1); Sodium 131 mmol/L (136-145); Total Protein 8.5 g/dL (6.6-8.7)
[2025-04-03 17:39] LABS: Blood Urea Nitrogen 102 mg/dL (6-20)
--- NOTE | 2025-04-03 17:41 | CTR_ITS ---
PROCEDURE INFORMATION: Exam: CT Abdomen And Pelvis Without Contrast Exam date and time: 04/03/2025 5:48 PM Age: 55 years old Clinical indication: Abdominal pain; Generalized; Prior surgery; Surgery date: 6+ months; Surgery type: Suprapubic catheter, gb, HX colostomy; Additional info: Abdominal pain; Rufino, HX colostomy, suprapubic cath TECHNIQUE: Imaging protocol: Computed tomography of the abdomen and pelvis without contrast. Radiation optimization: All CT scans at this facility use at least one of these dose optimization techniques: automated exposure control; mA and/or kV adjustment per patient size (includes targeted exams where dose is matched to clinical indication); or iterative reconstruction. COMPARISON: CT abdomen pelvis w con* [id number] 02/22/2025 8:15 PM RADIATION DOSE METRICS: Total DLP (mGy-cm): 1987.47 FINDINGS: Tubes, catheters and devices: Suprapubic catheter in decompressed bladder. Liver: Normal. No mass. Gallbladder and biliary ducts: Status post cholecystectomy. Pancreas: Normal. No ductal dilation. Spleen: Normal. No splenomegaly. Adrenal glands: Normal. No mass. Kidneys and ureters: Moderate bilateral hydronephrosis and hydroureter appearing since prior of unclear etiology. The bladder is decompressed with diffuse bladder wall thickening similar prior in the setting of suprapubic catheter which appears appropriately positioned. Bilateral nephrolithiasis. Stomach and bowel: Unremarkable. No obstruction. No mucosal thickening. Appendix: No evidence of appendicitis. Intraperitoneal space: Unremarkable. No free air. No significant fluid collection. Vasculature: IVC filter with atretic IVC and legs in the retroperitoneal fat. Lymph nodes: Unremarkable. No enlarged lymph nodes. Urinary bladder: See Kidneys and ureters finding. Reproductive: Status post hysterectomy. Bones/joints: Moderate multilevel degenerative changes thoracolumbar spine. No acute fracture. Soft tissues: Large ventral abdominal wall hernia similar to prior which contains both large and small bowel loops without suggestion of strangulation. CT/CT kidney stone [id number] IMPRESSION: 1. Moderate bilateral hydronephrosis and hydroureter appearing since prior of unclear etiology. The bladder is decompressed with diffuse bladder wall thickening similar prior in the setting of suprapubic catheter which appears appropriately positioned. 2. Large ventral abdominal wall hernia similar to prior which contains both large and small bowel loops without suggestion of strangulation. 3. Status post cholecystectomy. 4. Status post hysterectomy. COMMENTS: For patients with an IVC filter, recommend assessment for a management plan for the patient's IVC filter. If there is no established management plan, recommend referral to an interventional clinician on a nonemergent basis for evaluation.
== END 2025-04-03 23:00 | disposition short-term general hospital (02) ==
PROVIDERS: Emergency Provider Physician Assistant; PCP Family Medicine
DX: N13.9 Obstructive and reflux uropathy, unspecified (principal); N17.9 Acute kidney failure, unspecified
CPT/HCPCS: 36415; 70450; 71045; 74176; 80053; 83690; 85025; 99284; J7030

== ENCOUNTER 2025-04-06 13:00 | Oncology outpatient (recurring) (ONCR) | payer OTHER, MEDICAID, SELFPAY ==
[2025-03-09 14:09] LABS: Hematocrit 29.4 % (36-47); Hemoglobin 8.90 g/dL (11.27-16.99); Mean Corpuscular HGB Conc 30.3 g/dL (30-55); Mean Corpuscular Hemoglobin 29.9 pg (27-33); Mean Corpuscular Volume 98.7 fl (85-98); Nucleated Red Blood Cells % 0 %; Platelet Count 533 10^3/cmm (157-399); Red Blood Count 2.98 10^6/uL (3.85-5.65); White Blood Count 5.49 10^3/uL (3.29-11.43)
[2025-03-09 14:27] LABS: Alanine Aminotransferase 73 U/L (0-33); Albumin Level 2.3 g/dL (3.5-5.2); Alkaline Phosphatase 572 U/L (35-105); Anion Gap 18.3 (5-19); Aspartate Amino Transferase 43 U/L (0-32); Blood Urea Nitrogen 46 mg/dL (6-20); Calcium 8.6 mg/dL (8.5-10.5); Carbon Dioxide 15 mmol/L (22-29); Chloride 113 mmol/L (98-107); Globulin 5.5 g/dL (1.3-4.6); Glucose 100 mg/dL (65-115); Magnesium 2.6 mg/dL (1.7-2.3); Osmolality Calculated 306 mOsm/kg (285-295); Potassium 4.3 mmol/L (3.5-5.1); Sodium 142 mmol/L (136-145); Total Protein 7.8 g/dL (6.6-8.7); Triglycerides 143 mg/dL (0-150)
--- NOTE | 2025-03-09 16:00 | PC.NURSE ---
Central line dressing change completed via sterile technique. No redness or irritation noted. Pt tolerated well.
[2025-03-15 13:39] LABS: Hematocrit 36.5 % (36-47); Hemoglobin 10.60 g/dL (11.27-16.99); Mean Corpuscular HGB Conc 29.0 g/dL (30-55); Mean Corpuscular Hemoglobin 29.5 pg (27-33); Mean Corpuscular Volume 101.7 fl (85-98); Nucleated Red Blood Cells % 0 %; Platelet Count 489 10^3/cmm (157-399); Red Blood Count 3.59 10^6/uL (3.85-5.65); White Blood Count 6.16 10^3/uL (3.29-11.43)
[2025-03-15 13:54] LABS: Slide Review Slide Review Perform
[2025-03-15 13:59] LABS: Alanine Aminotransferase 50 U/L (0-33); Albumin Level 3.0 g/dL (3.5-5.2); Alkaline Phosphatase 276 U/L (35-105); Blood Urea Nitrogen 46 mg/dL (6-20); Calcium 9.3 mg/dL (8.5-10.5); Carbon Dioxide 17 mmol/L (22-29); Chloride 111 mmol/L (98-107); Globulin 5.6 g/dL (1.3-4.6); Glucose 89 mg/dL (65-115); Magnesium 2.6 mg/dL (1.7-2.3); Osmolality Calculated 299 mOsm/kg (285-295); Sodium 139 mmol/L (136-145); Total Protein 8.6 g/dL (6.6-8.7); Triglycerides 143 mg/dL (0-150)
[2025-03-15 14:01] LABS: Anion Gap 15.0 (5-19); Potassium 4.0 mmol/L (3.5-5.1)
[2025-03-15 14:02] LABS: Aspartate Amino Transferase 33 U/L (0-32)
--- NOTE | 2025-03-15 15:37 | PC.NURSE ---
Central line dressing change performed using sterile technique. Area and line cleansed with chloraprep, bio patch and sobaview dressing applied. Both lines flushed with saline as well as heparin per protocol, claves and swab caps changed out. Blood return noted on non TPN line.
--- NOTE | 2025-03-22 13:36 | PC.NURSE ---
Central line dressing change performed using sterile technique. Insertion site cleaned with chlora prep swab, bio patch placed over insertion site for the catheter along with a Sorbaview dressing. Both lumens were flushed with saline, claves and swab caps replaced. Good blood return established in both lumens. No heprin was used at this time, patient states she used heprin earlier in the day while doing her infusion at home.
[2025-03-22 13:40] LABS: Hematocrit 38.1 % (36-47); Hemoglobin 11.60 g/dL (11.27-16.99); Mean Corpuscular HGB Conc 30.4 g/dL (30-55); Mean Corpuscular Hemoglobin 31.0 pg (27-33); Mean Corpuscular Volume 101.9 fl (85-98); Nucleated Red Blood Cells % 0 %; Platelet Count 560 10^3/cmm (157-399); Red Blood Count 3.74 10^6/uL (3.85-5.65); White Blood Count 10.17 10^3/uL (3.29-11.43)
[2025-03-22 13:56] LABS: Alanine Aminotransferase 52 U/L (0-33); Albumin Level 3.5 g/dL (3.5-5.2); Alkaline Phosphatase 191 U/L (35-105); Anion Gap 15.3 (5-19); Aspartate Amino Transferase 35 U/L (0-32); Blood Urea Nitrogen 50 mg/dL (6-20); Calcium 9.7 mg/dL (8.5-10.5); Carbon Dioxide 23 mmol/L (22-29); Chloride 102 mmol/L (98-107); Globulin 5.2 g/dL (1.3-4.6); Glucose 102 mg/dL (65-115); Magnesium 2.2 mg/dL (1.7-2.3); Osmolality Calculated 296 mOsm/kg (285-295); Potassium 4.3 mmol/L (3.5-5.1); Sodium 136 mmol/L (136-145); Total Protein 8.7 g/dL (6.6-8.7); Triglycerides 141 mg/dL (0-150)
[2025-03-29 12:48] LABS: Hematocrit 39.0 % (36-47); Hemoglobin 11.80 g/dL (11.27-16.99); Mean Corpuscular HGB Conc 30.3 g/dL (30-55); Mean Corpuscular Hemoglobin 30.3 pg (27-33); Mean Corpuscular Volume 100.3 fl (85-98); Nucleated Red Blood Cells % 0 %; Platelet Count 491 10^3/cmm (157-399); Red Blood Count 3.89 10^6/uL (3.85-5.65); White Blood Count 8.37 10^3/uL (3.29-11.43)
--- NOTE | 2025-03-29 13:00 | PC.NURSE ---
Central line dressing change performed using sterile technique. Insertion site cleaned with chlora prep swab, bio patch placed over insertion site for the catheter along with a Sorbaview dressing. Both lumens were flushed with saline, claves and swab caps replaced. Good blood return established in both lumens. Heparin was used in bilateral lumens.
[2025-03-29 13:08] LABS: Alanine Aminotransferase 40 U/L (0-33); Albumin Level 3.5 g/dL (3.5-5.2); Alkaline Phosphatase 202 U/L (35-105); Anion Gap 17.2 (5-19); Aspartate Amino Transferase 32 U/L (0-32); Blood Urea Nitrogen 44 mg/dL (6-20); Calcium 9.2 mg/dL (8.5-10.5); Carbon Dioxide 23 mmol/L (22-29); Chloride 101 mmol/L (98-107); Globulin 4.6 g/dL (1.3-4.6); Glucose 126 mg/dL (65-115); Magnesium 2.1 mg/dL (1.7-2.3); Osmolality Calculated 297 mOsm/kg (285-295); Potassium 4.2 mmol/L (3.5-5.1); Sodium 137 mmol/L (136-145); Total Protein 8.1 g/dL (6.6-8.7); Triglycerides 109 mg/dL (0-150)
[2025-04-06 12:30] LABS: Hematocrit 31.1 % (36-47); Hemoglobin 9.80 g/dL (11.27-16.99); Mean Corpuscular HGB Conc 31.5 g/dL (30-55); Mean Corpuscular Hemoglobin 30.3 pg (27-33); Mean Corpuscular Volume 96.3 fl (85-98); Nucleated Red Blood Cells % 0 %; Platelet Count 397 10^3/cmm (157-399); Red Blood Count 3.23 10^6/uL (3.85-5.65); White Blood Count 5.74 10^3/uL (3.29-11.43)
[2025-04-06 12:57] LABS: Alanine Aminotransferase 28 U/L (0-33); Albumin Level 3.3 g/dL (3.5-5.2); Alkaline Phosphatase 118 U/L (35-105); Anion Gap 13.7 (5-19); Aspartate Amino Transferase 28 U/L (0-32); Blood Urea Nitrogen 47 mg/dL (6-20); Calcium 8.9 mg/dL (8.5-10.5); Carbon Dioxide 22 mmol/L (22-29); Chloride 103 mmol/L (98-107); Globulin 3.9 g/dL (1.3-4.6); Glucose 147 mg/dL (65-115); Magnesium 2.2 mg/dL (1.7-2.3); Osmolality Calculated 295 mOsm/kg (285-295); Potassium 3.7 mmol/L (3.5-5.1); Sodium 135 mmol/L (136-145); Total Protein 7.2 g/dL (6.6-8.7); Triglycerides 124 mg/dL (0-150)
--- NOTE | 2025-04-06 14:44 | PC.NURSE ---
Changed central line to right chest via sterile technique. Slight redness noted at insertion site. No s/s of infection. Pt tolerated well.
== END 2025-04-06 23:59 | disposition home or self-care (01) ==
PROVIDERS: Nurse Practitioner; PCP Family Medicine; Visit Provider Family Medicine
DX: Z53.9 Procedure and treatment not carried out, unspecified reason; M72.6 Necrotizing fasciitis
CPT/HCPCS: 36415; 36592; 80053; 83735; 84100; 84478; 85025

== ENCOUNTER → 2025-04-08 12:56 | Outpatient (BNVA) | payer OTHER, MEDICAID, SELFPAY | PROVIDERS: PCP Family Medicine; Visit Provider Thoracic Surgery (Cardiothoracic Vascular Surgery) | DX: M72.6 Necrotizing fasciitis (principal); T81.32 Disruption of internal operation (surgical) wound, not elsewhere classified; Y83.8 Other surgical procedures as the cause of abnormal reaction of the patient, or of later complication, without mention of misadventure at the time of the procedure; L98.491 Non-pressure chronic ulcer of skin of other sites limited to breakdown of skin; L89.152 Pressure ulcer of sacral region, stage 2 | CPT/HCPCS: 97597; A6210 ==

== ENCOUNTER 2025-04-22 15:56 | Emergency (ER) | payer OTHER, MEDICAID, SELFPAY ==
[2025-04-22 15:58] VITALS: BP 116/89; PULSE 106; RESP 16; TEMP 37.1; O2SAT 99
--- NOTE | 2025-04-22 16:22 | CTR_ITS ---
PROCEDURE INFORMATION: Exam: CT Abdomen And Pelvis With Contrast Exam date and time: 04/22/2025 5:40 PM Age: 55 years old Clinical indication: Patient presents with abdominal pain. Patient states blood in urine and in landeros bag. ; Additional info: Diffuse severe abd pain, hematuria Additional history: Suprapubic catheter. Colostomy. TECHNIQUE: Imaging protocol: Computed tomography of the abdomen and pelvis with contrast. Total images: 248 Radiation optimization: All CT scans at this facility use at least one of these dose optimization techniques: automated exposure control; mA and/or kV adjustment per patient size (includes targeted exams where dose is matched to clinical indication); or iterative reconstruction. Contrast material: [id number]; Contrast volume: 100 ml; Contrast route: INTRAVENOUS (IV); COMPARISON: 1. CT kidney stone [id number] 04/03/2025 5:[address] abdomen pelvis w con* [id number] 02/22/2025 8:15 PM RADIATION DOSE METRICS: Total DLP (mGy-cm): 994.99 FINDINGS: Tubes, catheters and devices: No Lander[place] catheter present. Suprapubic catheter present. Central venous catheter projects at or just above the cavoatrial junction, stable-satisfactory position. Lungs: Left lung benign chronic granulomatous disease noted. Diaphragm: Small hiatal hernia. Liver: Liver decreased attenuation consistent with hepatic steatosis. No focal hepatic lesions identified; subtle or isoattenuating lesions may be obscured. Gallbladder and biliary ducts: Surgical clips in the gallbladder fossa; prior cholecystectomy. No biliary tree dilation or retained stones appreciated. Pancreas: The pancreas demonstrates atrophy and fatty replacement. Spleen: Spleen appears normal in contour and size without pathologic splenic mass. Adrenal glands: Adrenal glands are normal. Kidneys and ureters: Kidneys are normal. Interval resolution of the substantial hydronephrosis and hydroureter compared with prior CT 04/03/2025. No evidence of obstructing urinary tract calculus, hydroureteronephrosis or perinephric edema. Stomach and bowel: Stomach is nondistended demonstrating areas of gastric wall thickening without suspicious pathologic fluid or inflammation to suggest acute gastritis or other specific inflammatory gastric process. Moderate burden of colonic stool without distension. No evidence of pathologic bowel distension or bowel wall thickening. Appendix: Normal appendix. Intraperitoneal space: No significant peritoneal free fluid. No free peritoneal air. Vasculature: No major vessel critical narrowing, occlusion, or aneurysm. Inferior vena cava filter with low position at the L4-L5 disc interval level. Lymph nodes: No lymphadenopathy. Left hilum/mediastinum calcified lymph nodes characteristic remote prior granulomatous organism exposure. No specific manifestations of active granulomatous disease. Urinary bladder: The bladder is decompressed by a suprapubic catheter and not well assessed. Reproductive: Prior hysterectomy; vaginal cuff normal. No adnexal cysts or masses are identified. Prior hysterectomy; vaginal cuff normal. No adnexal cysts or masses are identified. Bones/joints: Moderate generalized degenerative changes of the vertebral column, including multilevel osteophytes, degenerative disc height loss, and facet arthrosis, consistent with patient age. Pubic symphysis degenerative changes (osteitis pubis). Sacroiliac joint degenerative manifestations. Moderate degenerative changes of both hips. L5-S1 vacuum disc phenomenon and advanced degenerative facet arthrosis. L5-S1 grade 1 isthmic spondylolisthesis. L5 pars interarticularis defects. Flowing ventral bridging osteophytes involving more than four contiguous vertebrae, characteristic of diffuse idiopathic skeletal hyperostosis (DISH). Chronic interspinous contact and pseudoarticulation consistent with [place] disease. Soft tissues: Soft tissues are normal as visualized, demonstrating no masses or induration. Stable large ventral abdominal wall hernia left of midline containing nondistended colon, small bowel, and abundant omental fat without secondary manifestations to suggest strangulation. Ventral abdominal wall demonstrates evidence of prior healed surgical incision. Pelvic sidewalls are lined by multiple surgical clips. Other findings: Incidental pelvic phleboliths noted. CT/CT abdomen pelvis w con* [id number] IMPRESSION: 1. Interval resolution of the substantial hydronephrosis and hydroureter compared with prior CT 04/03/2025. 2. No acute abdominal or pelvic pathologic process identified. 3. Stable large ventral abdominal wall hernia left of midline containing nondistended colon, small bowel, and abundant omental fat without manifestations of bowel strangulation or other acute peritoneal process. 4. Liver fatty infiltration is favored, although other diffuse hepatocellular or infiltrative processes could produce a similar appearance. 5. Moderate age-appropriate degenerative spinal changes, with other chronic/non-acute findings as described above. 6. L5-S1 grade 1 isthmic spondylolisthesis due to L5 pars interarticularis defects. COMMENTS: For patients with an IVC filter, recommend assessment for a management plan for the patient's IVC filter. If there is no established management plan, recommend referral to an interventional clinician on a nonemergent basis for evaluation.
--- NOTE | 2025-04-22 16:34 | W.ED.ABDPA2 ---
HPI - Abdominal Pain General: Chief Complaint: Abdominal Pain Stated Complaint: abd pain Source: patient Mode of arrival: EMS Limitations: no limitations History of Present Illness: Patient is a 55-year-old female with past medical history of morbid obesity, sacral abscess, neurogenic bladder, and chronic anticoagulation who presents to the emergency department by ambulance due to diffuse abdominal pain that began overnight. States that it is a constant, diffuse 10/10 sharp stabbing pain that has been constant since onset. States that she has also noticed the presence of blood in her leg bag from indwelling suprapubic. She has ileostomy as well due to history of which she states was bowel snipped during surgery. Denies any abnormalities here. States that she feels feverish but has not had documented temperature at home, no chills. Reports nausea and vomiting. Denies history of kidney stones. No chest pain or shortness of breath. She is in active distress at this time due to pain, requesting pain medications. MD elicited complaint: abdominal pain Onset (ago): hour(s) Pain Consistency: constant Location: Diffuse Severity: severe Quality: stabbing and sharp Exacerbating factors: nothing Relieving factors: nothing Associated Symptoms: Reports hematuria, nausea and vomiting; Denies bloating, change in stool character, chills, constipation, diarrhea, dysuria, fever(s) and hematochezia Related Data Home Medications ?Medication ?Instructions ?Recorded ?Confirmed gabapentin 600 mg tablet 600 mg PO BEDTIME 04/12/20 03/04/25 venlafaxine 150 mg 150 mg PO BEDTIME 04/12/20 03/04/25 capsule,extended release 24 hr baclofen 20 mg tablet 20 mg PO BEDTIME 02/26/23 03/04/25 trazodone 50 mg tablet 25 mg PO BEDTIME 09/24/23 03/04/25 diphenoxylate-atropine 2.5 2 tab PO QID 02/04/25 03/04/25 mg-0.025 mg tablet loperamide 2 mg capsule 4 mg PO QID PRN Diarrhea 02/04/25 03/04/25 omeprazole 40 mg capsule,delayed 40 mg PO DAILY 02/04/25 03/04/25 release sulfamethoxazole 400 1 tab PO DAILY 02/04/25 03/04/25 mg-trimethoprim 80 mg tablet ondansetron 8 mg disintegrating 8 mg PO TID PRN Nausea And Vomiting 02/23/25 03/04/25 tablet apixaban 5 mg tablet (Eliquis) 5 mg PO BID 03/04/25 03/04/25 pantoprazole 40 mg tablet,delayed 40 mg PO BID 03/04/25 03/04/25 release Previous Rx's ?Medication ?Instructions ?Recorded prothrombin time/INR test metr #30 ea 08/24/24 hydrocodone 7.5 mg-acetaminophen 1 tab PO Q8H PRN pain #20 tabs 04/22/25 325 mg tablet ondansetron 4 mg disintegrating 4 mg PO TID PRN nausea and 04/22/25 tablet vomiting #30 tabs Allergies Allergy/AdvReac Type Severity Reaction Status Date / Time levofloxacin (From Levaquin) Allergy Unknown Unknown Verified 02/22/25 13:52 azithromycin Allergy Unknown Verified 02/22/25 13:52 Penicillins Allergy Unknown Verified 02/22/25 13:52 tramadol (From Ultram) Allergy Unknown Verified 02/22/25 13:52 vancomycin Allergy Unknown Verified 02/22/25 13:52 amoxicillin AdvReac Unknown ADR-Seizure Verified 02/22/25 13:52 Review of Systems General: Reports: 10 or more systems reviewed and unremarkable except in HPI and below Const: Denies: fever(s), chills, change in appetite, change in weight or diaphoresis ENMT: Denies: throat pain or hoarseness Card: Denies: chest pain, palpitations or lightheadedness Resp: Denies: dyspnea, productive cough or wheezing GI: Reports: abdominal pain, nausea and vomiting; Denies: diarrhea, constipation, bloating, change in stool character or hematochezia : Reports: hematuria; Denies: flank pain, difficulty voiding, dysuria, urinary frequency or urinary urgency Musc: Denies: neck pain or back pain Skin/Breast: Denies: rash or new lesions Neuro: Denies: headache(s) or dizziness PFSH ED PFSH: Medical History Shock Groin hematoma BMI 50.0-59.9, adult Chronic anticoagulation History of angiography 2015 abdominal angiography and lower extremity angiography - normal abdominal aorta, pelvic vessels normal, all lower extremity vessels unremarkable, 3 vessel runoff below both knees History of cardiovascular stress test 07/2024 abnormalities on myocardial perfusion scanning History of sleep study 05/2017 - cpap auto-titrating 15-19 Wound of sacral region goes to wound care clinic Abscess of sacrum Parastomal hernia Ventral incisional hernia GERD (gastroesophageal reflux disease) Depression Fracture of fifth toe, right, closed History of sleep apnea sleep study in 2017 recommended auto-titrating cpap 15-[address] Complications of surgery for ovarian cyst around 2004 resulting in bowel injury Chronic venous insufficiency of lower extremity PVD (peripheral vascular disease) History of DVT (deep vein thrombosis) (2004) and pulmonary embolism 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 Chronic osteomyelitis Neurogenic bladder Chronic cystitis Surgical History History of carpal tunnel release History of abdominal surgery (2007) excision of pelvic cysts complicated by bowel perforation, had multiple procedures including colostomy History of inferior vena caval filter placement (2004) still in place in 08/2024 History of incision and drainage (04/2019) sacral wound History of back surgery (2004) for spinal abscess x 2 History of hysterectomy (2003) S/P cholecystectomy S/P section Suprapubic catheter (~2004) following urology in [place] Family History Family/Other Diabetes Cancer CAD (coronary artery disease) Mother , at age 74 Sepsis Cancer melanoma Diabetes Father Heart disease Other Dementia Diabetes mellitus type 1 Hypertension Stroke Social History Smoking and tobacco/nicotine status: never used tobacco/nicotine Alcohol intake: never Substance/Drug Use: never Additional social history: daughter performs dressing changes twice per day, she and other family provide assistance as needed, wheelchair dependent, able to use transfer board Caregiver/support person: Yes Lives independently: Yes Marital status: Current occupational status: disabled Physical Exam Const: COMMON NORMALS: patient oriented x3, alert and well nourished GENERAL APPEARANCE: cooperative NUTRITIONAL APPEARANCE: obese morbidly obese ORIENTATION/CONSCIOUSNESS: Yes awake OTHER: Nontoxic but in acute distress secondary to pain Neck/C-Spine: COMMON NORMALS: full ROM and no meningeal signs Resp: COMMON NORMALS: normal respiratory effort, No retractions, No use of accessory muscles and clear to auscultation bilaterally AUSCULTATION: clear to auscultation bilaterally, no crackles, no rales, no rhonchi and no wheezes Cardio: COMMON NORMALS: regular rate, regular rhythm, No gallops present (Cardio), No clicks present (Cardio), No murmurs present (Cardio) and No rub (Cardio) RATE: regular rate RHYTHM: regular rhythm GI: PALPATION: Yes Guarding due to palpation present (GI) in the LUQ OTHER: Large, obese abdomen. Colostomy left lower quadrant. Easily reproducible diffuse tenderness to palpation of the abdomen. Suprapubic catheter present, draining dark urine into leg bag Extremity: COMMON NORMALS: normal to inspection and full ROM Neuro: COMMON NORMALS: patient oriented x3, moves all extremities, no focal motor deficits and no sensory deficits noted SENSORIUM/ORIENTATION: Yes alert MENINGEAL SIGNS: Yes no meningeal signs Psych: COMMON NORMALS: mental status grossly normal, cooperative and speech normal SPEECH: Yes normal speech Skin: COMMON NORMALS: no rashes or lesions noted GENERAL SKIN EXAM: no rashes or lesions noted Course Vital Signs: Vital signs: Vital Signs Temperature 98.8 F 04/22/25 15:58 Pulse Rate 94 04/22/25 19:55 Respiratory Rate 20 H 04/22/25 17:11 Blood Pressure 109/75 04/22/25 19:55 Pulse Oximetry 98 04/22/25 19:55 Oxygen Delivery Me thod Room Air 04/22/25 19:00 MDM - Abdominal Pain Medical Decision Making This patient present by ambulance for diffuse abdominal pain. Had been seen here previously few weeks ago and transferred to [facility] for urology, as at that time diagnosed with obstructive uropathy as she has chronic indwelling suprapubic catheter. Also has colostomy present. On exam diffusely tender to palpation with active guarding, though nontoxic-appearing. Had noted 10/10 pain. She was given fentanyl and this had noted to improve her condition greatly. Her lab work was all reassuring showing either baseline or improvement from prior labs obtained. This included no leukocytosis, normalizing kidney function, and normal lactic acid. Urinalysis showing chronic findings which included asymptomatic bacteriuria and greater than 100 red blood cells. Suspect that this is from the indwelling catheter instrumentation and she is also on blood thinner. The CT abdomen and pelvis does not show any acute findings for her pain, showing marked resolution of her previously noted substantial hydronephrosis and hydroureter that required her to be transferred. At this time there is no other emergent explanation that would explain the pain that she is going through, and she was noted to be sleeping upon recheck because she had improvement of her pain. She did note to me as well that this pain has been present before, and has never been as constant or severe as it was this morning/last night. At this time there is no emergent reason for hospital placement or transfer to other facility. She is to follow-up with urology and primary care if her symptoms worsen and with any significant worsening told to come back to the ED for further management. Hydrocodone and Zofran sent to pharmacy for further outpatient symptomatic control. Lab Data 04/22/25 16:39 04/22/25 16:39 Labs/Radiology: Radiology Impressions Abdomen/Pelvis CT 04/22/25 16:22 IMPRESSION: 1. Interval resolution of the substantial hydronephrosis and hydroureter compared with prior CT 04/03/2025. 2. No acute abdominal or pelvic pathologic process identified. 3. Stable large ventral abdominal wall hernia left of midline containing nondistended colon, small bowel, and abundant omental fat without manifestations of bowel strangulation or other acute peritoneal process. 4. Liver fatty infiltration is favored, although other diffuse hepatocellular or infiltrative processes could produce a similar appearance. 5. Moderate age-appropriate degenerative spinal changes, with other chronic/non-acute findings as described above. 6. L5-S1 grade 1 isthmic spondylolisthesis due to L5 pars interarticularis defects. COMMENTS: For patients with an IVC filter, recommend assessment for a management plan for the patient's IVC filter. If there is no established management plan, recommend referral to an interventional clinician on a nonemergent basis for evaluation. Laboratory Results WBC 9.57 10^3/uL (3.29-11.43) 04/22/25 16:39 RBC 4.05 10^6/uL (3.85-5.65) 04/22/25 16:39 Hgb 12.00 g/dL (11.27-16.99) 04/22/25 16: Hct 39.7 % (36-47) 04/22/25 16: MCV 98.0 fl (85-98) 04/22/25 16:39 MCH 29.6 pg (27-33) 04/22/25 16:39 MCHC 30.2 g/dL (30-55) 04/22/25 16:39 RDW 13.6 % (12.1-15.1) 04/22/25 16:39 Plt Count 484 10^3/cmm (157-399) H 04/22/25 16:39 MPV 10.9 fL (7.4-10.4) H 04/22/25 16:39 Neut % (Auto) 72.6 % 04/22/25 16:39 Lymph % (Auto) 15.7 % 04/22/25 16:39 [place] % (Auto) 9.5 % 04/22/25 16: Eos % (Auto) 1.4 % 04/22/25 16: Baso % (Auto) 0.4 % 04/22/25 16: Neut # (Auto) 6.95 10^3/uL (1.8-7.7) 04/22/25 16:39 Lymph # (Auto) 1.5 10^3/uL (0.8-4.8) 04/22/25 16:39 [place] # (Auto) 0.9 10^3/uL (0.2-0.9) 04/22/25 16:39 Eos # (Auto) 0.1 10^3/uL (0.0-0.8) 04/22/25 16:39 Baso # (Auto) 0.0 10^3/uL (0.0-0.1) 04/22/25 16: Nucleated RBC % (auto) 0 % 04/22/25 16: Nucleated RBCs # 0.0 /100WBC 04/22/25 16: PT 14.10 SECONDS (12.1-14.9) 04/22/25 16: INR 1.02 (0.8-1.2) 04/22/25 16:39 APTT 26.8 SECONDS (23.9-36.7) 04/22/25 16:39 Sodium 138 mmol/L (136-145) 04/22/25 16: Potassium 4.8 mmol/L (3.5-5.1) 04/22/25 16: Chloride 103 mmol/L (98-107) 04/22/25 16:39 Carbon Dioxide 17 mmol/L (22-29) L 04/22/25 16:39 Anion Gap 22.8 (5-19) H 04/22/25 16:39 BUN 51 mg/dL (6-20) H 04/22/25 16:39 Creatinine 0.9 mg/dL (0.5-0.9) 04/22/25 16:39 GFR Calculation 64.5 mL/min (90-130) L 04/22/25 16:39 Glucose 114 mg/dL (65-115) 04/22/25 16:39 Calculated Osmolality 301 mOsm/kg (285-295) H 04/22/25 16:39 Lactic Acid 1.8 mmol/L (0.5-2.2) 04/22/25 17:07 Calcium 9.5 mg/dL (8.5-10.5) 04/22/25 16:39 Total Bilirubin 0.2 mg/dL (0.15-1.2) 04/22/25 16:39 AST 30 U/L (0-32) 04/22/25 16:39 ALT 35 U/L (0-33) H 04/22/25 16:39 Alkaline Phosphatase 157 U/L (35-105) H 04/22/25 16:39 Total Protein 8.1 g/dL (6.6-8.7) 04/22/25 16:39 Albumin 3.5 g/dL (3.5-5.2) 04/22/25 16:39 Globulin 4.6 g/dL (1.3-4.6) 04/22/25 16:39 Lipase 24 U/L (13-60) 04/22/25 16:39 Urine Color Dark yellow (Yellow) A 04/22/25 16:40 Urine Appearance Turbid (CLEAR) A 04/22/25 16:40 Urine pH (5-7) 04/22/25 16:40 Ur Specific [place] Not Reportable 04/22/25 16:40 Urine Protein Not Reportable 04/22/25 16:40 Urine Glucose (UA) Not Reportable 04/22/25 16:40 Urine Ketones Not Reportable 04/22/25 16:40 Urine Blood Not Reportable 04/22/25 16:40 Urine Nitrate Not Reportable 04/22/25 16:40 Urine Bilirubin Not Reportable 04/22/25 16:40 Urine Urobilinogen Not Reportable 04/22/25 16:40 Ur Leukocyte Esterase Not Reportable 04/22/25 16:40 Urine RBC >100 /hpf (0-2) H 04/22/25 16:40 Urine WBC 5-10 /hpf (0-5) H 04/22/25 16:40 Ur Squamous Epith Cells 0-4 /hpf (0-5) H 04/22/25 16:40 Triple Phos Crystals 25-40 /hpf H 04/22/25 16:40 Amorphous Sediment 1+ /hpf 04/22/25 16:40 Urine Bacteria 2+ /hpf (NONE) H 04/22/25 16:40 Hyaline Casts 5-10 /lpf H 04/22/25 16:40 Urine Mucus 1+ /hpf 04/22/25 16:40 All radiology interpretation(s) finalized by discharge Discharge Plan Discharge Patient Disposition: Home Clinical Impression: Abdominal pain, chronic, generalized Condition: Stable Prescriptions: New hydrocodone-acetaminophen 7.5-325 mg tablet 1 tab PO Q8H PRN (Reason: pain) Qty: 20 0RF ondansetron 4 mg tablet,disintegrating 4 mg PO TID PRN (Reason: nausea and vomiting) Qty: 30 0RF No Action gabapentin 600 mg tablet 600 mg PO BEDTIME venlafaxine 150 mg capsule,extended release 24hr 150 mg PO BEDTIME trazodone 50 mg tablet 25 mg PO BEDTIME (DME) prothrombin time/INR test metr Misc See Rx Instructions .Route Qty: 30 0RF Rx Instructions: As directed- INR strips loperamide 2 mg capsule 4 mg PO QID PRN (Reason: Diarrhea) sulfamethoxazole-trimethoprim 400-80 mg tablet 1 tab PO DAILY diphenoxylate-atropine 2.5-0.025 mg tablet 2 tab PO QID omeprazole 40 mg capsule,delayed release(DR/EC) 40 mg PO DAILY ondansetron 8 mg tablet,disintegrating 8 mg PO TID PRN (Reason: Nausea And Vomiting) baclofen 20 mg tablet 20 mg PO BEDTIME pantoprazole 40 mg tablet,delayed release (DR/EC) 40 mg PO BID Eliquis 5 mg tablet 5 mg PO BID Discharge Orders: Discharge ED (Routine); Ordered 04/22/25 Ordered By: Jose Esparza Referrals: Marcus Benson MD [Primary Care Provider, Family Practice] Patient Instructions: Abdominal Pain (ED), Patient Portal & Jodie Instructions Activity Restrictions/Additional Instructions: Please follow-up with your urologist, as well as with primary care provider. Take hydrocodone as prescribed for pain, take Zofran for nausea. Drink plenty of fluids. Lab work and imaging today showing improvement from prior, no emergent process identified at this time though if your condition continues to worsen please return to the ED. Print Language: Argentine Coding Level of Care Code ED Acid Concentrator for Hetal Huitron
[2025-04-22 16:49] VITALS: PULSE 112; O2SAT 99
--- OUTSIDE RECORDS SUMMARY | 2025-04-22 16:56 | XMS_ITS | Encounter Summary ---
Author Organization [facility] Address [address] [place] [address] Care Team Providers Care Account Strategist Name Role Phone Jose Bowers MD Primary Care Provider Levon lowry Encounter Details Date Type Department Care Team (Latest Contact Info) Description 04/28/2008 Outpatient Historical [facility] [address] [place] [address] AMBULANCE, [facility] Paraplegia ([facility]); Pressure Ulcer, Upper Back; Pressure Ulcer, Unspecified Stage; Wheelchair Dependence; Bed Confinement Status; Encounter for Long-Term (Current) Use of Other Medications; Encounter for Long-Term (Current) Use of Insulin ([facility]); Personal History of Allergy to Penicillin; Personal History of Allergy to Narcotic Agent Social History Tobacco Use Types Packs/Day Years Used Date Smoking Tobacco: Never Assessed Comments Unknown Sex and Gender Information Value Date Recorded Sex Assigned at Not on file Legal Sex Female 6:28 AM [employer] AD[employer] Gender Identity Not on file Sexual [...] Encounter for long-term (current) use of insulin ([facility]) Encounter for long-term (current) use of insulin Personal history of allergy to penicillin Personal history of allergy to narcotic agent documented in this encounter Additional Health Concerns Infection Onset Date Last Indicated Resolved Time MRSA Comment:Kapil 10/26/15 10/27/2015 10/27/2015 documented as of this encounter Care Teams Account Strategist Relationship Specialty Start Date End Date Jose Bowers MD [address] [place] [id number] PCP - General 12/31/05 documented as of this encounter
--- OUTSIDE RECORDS SUMMARY | 2025-04-22 16:56 | XMS_ITS | Encounter Summary ---
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 de Phone Number INTERFACE SYSTEM Refer to clinic/hospital department [facility] CLIA# [id number] [address] [place] [address] * (ABNORMAL) POC GLUCOSE (04/28/2008 6:07 AM CDT) GLUCOSE POC 132(H) 60 - 100 mg/dL [facility] Venous blood specimen (specimen) 04/28/2008 6:07 AM CDT 04/29/2008 1:56 AM CDT us Riky Mejía MD POINT OF CARE TESTING Final Result Performing Organization Address [facility] Phone Number INTERFACE SYSTEM Refer to clinic/hospital department [facility] CLIA# [id number] [facility] [place] [address] * (ABNORMAL) BASIC METABOLIC PANEL (04/28/2008 5:15 [...] CHEMISTRY ORDERABLES Final Result Performing Organization Address [facility] de Phone Number INTERFACE SYSTEM Refer to clinic/hospital department [facility] CLIA# [id number] [address] [place] [address] * (ABNORMAL) POC GLUCOSE (04/27/2008 8:55 PM CDT) GLUCOSE POC 133(H) 60 - 100 mg/dL [facility] Venous blood specimen (specimen) 04/27/2008 8:55 PM CDT 04/28/2008 2:27 AM CDT us Riky Mejía MD POINT OF CARE TESTING Final Result Performing Organization Address [facility] Phone Number INTERFACE SYSTEM Refer to clinic/va hospital department [facility] CLIA# [id number] [facility] [place] [address] * (ABNORMAL) POC GLUCOSE (04/27/2008 4:38 PM CDT) GLUCOSE POC 112(H) 60 - 100 mg/dL [facility] COMMENT POC Follow Protocol [facility] Venous blood specimen (specimen) 04/27/2008 4:38 PM CDT 04/28/2008 12:35 AM CDT Riky Mejía MD POINT OF CARE TESTING Final Result Performing Organization Address [facility] de Phone Number INTERFACE SYSTEM Refer to clinic/hospital department [facility] CLIA# [id number] [address] [place] [address] * (ABNORMAL) POC GLUCOSE (04/27/2008 11:23 AM CDT) GLUCOSE POC 143(H) 60 - 100 mg/dL [facility] Venous blood specimen (specimen) 04/27/2008 11:23 AM CDT 04/28/2008 2:23 AM CDT Riky Mejía MD POINT OF CARE TESTING Final Result Performing Organization Address [facility] de Phone Number INTERFACE SYSTEM Refer to clinic/hospital department [facility] CLIA# [id number] [address] [place] [address] * (ABNORMAL) POC GLUCOSE (04/27/2008 6:38 AM CDT) GLUCOSE POC 122(H) 60 - 100 mg/dL [facility] Venous blood specimen (specimen) 04/27/2008 6:38 AM CDT 04/28/2008 2:33 AM CDT Riky Mejía MD POINT OF CARE TESTING Final Result Performing Organization Address [facility] de Phone Number INTERFACE SYSTEM Refer to clinic/[facility] CLIA# [id number] [address] [place] [address] * (ABNORMAL) POC GLUCOSE (04/26/2008 8:43 PM CDT) GLUCOSE POC 128(H) 60 - 100 mg/dL [facility] Venous blood specimen (specimen) 04/26/2008 8:43 PM CDT 04/27/2008 2:25 AM CDT Riky Mejía MD POINT OF CARE TESTING Final Result Performing Organization Address [facility] de Phone Number INTERFACE SYSTEM Refer to clinic/hospital department [facility] CLIA# [id number] [address] [place] [address] * (ABNORMAL) POC GLUCOSE (04/26/2008 4:53 PM CDT) GLUCOSE POC 113(H) 60 - 100 mg/dL [facility] Venous blood specimen (specimen) 04/26/2008 4:53 PM CDT 04/27/2008 2:26 AM CDT Riky Mejía MD POINT OF CARE TESTING Final Result Performing Organization Address [facility] Phone Number INTERFACE SYSTEM Refer to clinic/hospital department [facility] CLIA# [id number] [address] [place] [address] * (ABNORMAL) POC GLUCOSE (04/26/2008 11:28 AM CDT) GLUCOSE POC 125(H) 60 - 100 mg/dL [facility] Venous blood specimen (specimen) 04/26/2008 11:28 AM CDT 04/27/2008 2:25 AM CDT Riky Mejía MD POINT OF CARE TESTING Final Result Performing Organization Address [facility] de Phone Number INTERFACE SYSTEM Refer to clinic/hospital department [facility] CLIA# [id number] [address] [place] [address] * (ABNORMAL) POC GLUCOSE (04/26/2008 5:36 AM CDT) GLUCOSE POC 123(H) 60 - 100 mg/dL [facility] Venous blood specimen (specimen) 04/26/2008 5:36 AM CDT 04/27/2008 2:25 AM CDT Riky Mejía MD POINT OF CARE TESTING Final Result Performing Organization Address [facility] Phone Number INTERFACE SYSTEM Refer to clinic/hospital department [facility] CLIA# [id number] [address] [place] [address] * (ABNORMAL) TRANSFERRIN (04/26/2008 4:02 AM CDT) TRANSFERRIN 121.0(L) 204.0 - 376.0 mg/dL [facility] Blood specimen (specimen) 04/26/2008 4:02 AM CDT 04/26/2008 4:19 AM CDT Riky Mejía MD CHEMISTRY ORDERABLES Final Result Performing Organization Address [facility] Phone Number INTERFACE SYSTEM Refer to clinic/hospital department [facility] CLIA# [id number] [address] [place] [address] * PREALBUMIN (04/26/2008 4:02 AM CDT) PREALBUMIN 22.2 14.0 - 32.0 mg/dL [facility] Blood specimen (specimen) 04/26/2008 4:02 AM CDT 04/26/2008 4:19 AM CDT Riky Mejía MD CHEMISTRY ORDERABLES Final Result Performing Organization Address [facility] Phone Number INTERFACE SYSTEM Refer to clinic/[facility] CLIA# [id number] [address] [place] [address] * (ABNORMAL) PROTIME-INR (04/26/2008 4:02 AM CDT) [...] INR 3.0; range 2.5 - 3.5 POST-MS Goal INR 2.5; range 2.0 - 3.0 or Goal 3.0; range 2.5 - 3.5 Atrial Fibrillation Goal INR 2.5; range 2.0 - 3.0 Ischemic Stroke Goal INR 2.5; range 2.0 - 3.0 For additional information see Guidelines for Anticoagulation available from the pharmacy [facility]. [phone] Blood specimen (specimen) 04/26/2008 4:02 AM CDT 04/26/2008 4:19 AM CDT Riky Mejía MD HEMATOLOGY ORDERABLES Final Result INTERFACE SYSTEM Refer to clinic/hospital department [facility] CLIA# [id number] [address] [place] [address] * (ABNORMAL) CBC WITH DIFFERENTIAL (04/26/2008 4:02 [...] clinic/hospital department [facility] CLIA# [id number] [address] [place] [address] * MAGNESIUM LEVEL (04/26/2008 4:02 AM CDT) MAGNESIUM 2.0 1.7 - 2.4 mg/dL [facility] Blood specimen (specimen) 04/26/2008 4:02 AM CDT 04/26/2008 4:19 AM CDT us Riky Mejía MD CHEMISTRY ORDERABLES Final Result Performing Organization Address [facility] Phone Number INTERFACE SYSTEM Refer to clinic/hospital department [facility] CLIA# [id number] [address] [place] [address] * TRIGLYCERIDE (04/26/2008 4:02 AM CDT) [facility] TRIGLYCERIDE 137 0 - 150 mg/dL [facility] Comment: On 11/10/2007, [facility] changed the triglyceride reference range to 0-150 mg/dl. This is the recommendation of the National Cholesterol Education Program (NCEP-ATPIII). Blood specimen (specimen) 04/26/2008 4:02 AM CDT 04/26/2008 4:19 AM CDT Riky Mejía MD CHEMISTRY ORDERABLES Final Result Performing Organization Address [facility] Phone Number INTERFACE SYSTEM Refer to clinic/hospital department [facility] CLIA# [id number] [address] [place] [address] * PHOSPHORUS (04/26/2008 4:02 AM CDT) [facility] PHOSPHORUS 4.1 2.5 - 4.6 mg/dL [facility] Blood specimen (specimen) 04/26/2008 4:02 AM CDT 04/26/2008 4:19 AM CDT Riky Mejía MD CHEMISTRY ORDERABLES Final Result Performing Organization Address [facility] Phone Number INTERFACE SYSTEM Refer to clinic/[facility] CLIA# [id number] [address] [place] [address] * (ABNORMAL) COMPREHENSIVE METABOLIC PANEL (04/26/2008 4:02 AM CDT) Pathologist [facility] OSMOLALITY, CALCULATED 284 275 - 295 mOsm/Kg [...] LAB AST 29 8 - 33 U/L [facility] ALBUMIN/GLOBULIN RATIO 0.9(L) 1.0 [...] clinic/hospital department [facility] CLIA# [id number] [address] [place] [address] * (ABNORMAL) BASIC METABOLIC PANEL (04/26/2008 4:02 [...] CHEMISTRY ORDERABLES Final Result Performing Organization Address [facility] Phone Number INTERFACE SYSTEM Refer to clinic/hospital department [facility] CLIA# [id number] [address] [place] [address] * (ABNORMAL) POC GLUCOSE (04/25/2008 8:51 PM CDT) GLUCOSE POC 107(H) 60 - 100 mg/dL [facility] Venous blood specimen (specimen) 04/25/2008 8:51 PM CDT 04/26/2008 1:42 AM CDT Riky Mejía MD POINT OF CARE TESTING Final Result Performing Organization Address [facility] Phone Number INTERFACE SYSTEM Refer to clinic/hospital department [facility] CLIA# [id number] [address] [place] [address] * (ABNORMAL) POC GLUCOSE (04/25/2008 5:10 PM CDT) GLUCOSE POC 102(H) 60 - 100 mg/dL [facility] Venous blood specimen (specimen) 04/25/2008 5:10 PM CDT 04/26/2008 1:42 AM CDT Riky Mejía MD POINT OF CARE TESTING Final Result Performing Organization Address [facility] Phone Number INTERFACE SYSTEM Refer to clinic/hospital department [facility] CLIA# [id number] [address] [place] [address] * (ABNORMAL) POC GLUCOSE (04/25/2008 10:45 AM CDT) GLUCOSE POC 114(H) 60 - 100 mg/dL [facility] Venous blood specimen (specimen) 04/25/2008 10:45 AM CDT 04/26/2008 1:42 AM CDT Riky Mejía MD POINT OF CARE TESTING Final Result Performing Organization Address [facility] Phone Number INTERFACE SYSTEM Refer to clinic/hospital department [facility] CLIA# [id number] [address] [place] [address] * (ABNORMAL) POC GLUCOSE (04/25/2008 6:00 AM CDT) GLUCOSE POC 113(H) 60 - 100 mg/dL [facility] Venous blood specimen (specimen) 04/25/2008 6:00 AM CDT 04/26/2008 1:45 AM CDT Riky Mejía MD POINT OF CARE TESTING Final Result Performing Organization Address [facility] de Phone Number INTERFACE SYSTEM Refer to clinic/hospital department [facility] CLIA# [id number] [address] [place] [address] * (ABNORMAL) BASIC METABOLIC PANEL (04/25/2008 3:28 [...] CHEMISTRY ORDERABLES Final Result Performing Organization Address [facility] Phone Number INTERFACE SYSTEM Refer to clinic/hospital department [facility] CLIA# [id number] [address] [place] [address] * (ABNORMAL) POC GLUCOSE (04/24/2008 8:30 PM CDT) GLUCOSE POC 121(H) 60 - 100 mg/dL [facility] Venous blood specimen (specimen) 04/24/2008 8:30 PM CDT 04/25/2008 1:43 AM CDT Riky Mejía MD POINT OF CARE TESTING Final Result Performing Organization Address [facility] Phone Number INTERFACE SYSTEM Refer to clinic/hospital department [facility] CLIA# [id number] [address] [place] [address] * (ABNORMAL) POC GLUCOSE (04/24/2008 5:10 PM CDT) GLUCOSE POC 109(H) 60 - 100 mg/dL [facility] Venous blood specimen (specimen) 04/24/2008 5:10 PM CDT 04/25/2008 1:43 AM CDT Riky Mejía MD POINT OF CARE TESTING Final Result Performing Organization Address [facility] de Phone Number INTERFACE SYSTEM Refer to clinic/hospital department [facility] CLIA# [id number] [address] [place] [address] * (ABNORMAL) POC GLUCOSE (04/24/2008 1:53 PM CDT) GLUCOSE POC 113(H) 60 - 100 mg/dL [facility] Venous blood specimen (specimen) 04/24/2008 1:53 PM CDT 04/25/2008 1:50 AM CDT Riky Mejía MD POINT OF CARE TESTING Final Result Performing Organization Address [facility] de Phone Number INTERFACE SYSTEM Refer to clinic/hospital department [facility] CLIA# [id number] [address] [place] [address] * (ABNORMAL) POC GLUCOSE (04/24/2008 11:40 AM CDT) GLUCOSE POC 160(H) 60 - 100 mg/dL [facility] Venous blood specimen (specimen) 04/24/2008 11:40 AM CDT 04/25/2008 1:50 AM CDT Riky Mejía MD POINT OF CARE TESTING Final Result Performing Organization Address [facility] de Phone Number INTERFACE SYSTEM Refer to clinic/hospital department [facility] CLIA# [id number] [address] [place] [address] * (ABNORMAL) POC GLUCOSE (04/24/2008 5:45 AM CDT) GLUCOSE POC 129(H) 60 - 100 mg/dL [facility] Venous blood specimen (specimen) 04/24/2008 5:45 AM CDT 04/25/2008 1:46 AM CDT Riky Mejía MD POINT OF CARE TESTING Final Result INTERFACE SYSTEM Refer to clinic/hospital department [facility] CLIA# [id number] [address] [place] [address] * (ABNORMAL) CBC WITH DIFFERENTIAL (04/24/2008 3:09 AM CDT) WBC 10.5 4.5 - 11.0 K/ul [facility] [...] HEMATOLOGY ORDERABLES Final Result Performing Organization Address [facility] Phone Number INTERFACE SYSTEM Refer to clinic/hospital department [facility] CLIA# [id number] [address] [place] [address] * (ABNORMAL) BASIC METABOLIC PANEL (04/24/2008 3:09 [...] CHEMISTRY ORDERABLES Final Result Performing Organization Address [facility] Phone Number INTERFACE SYSTEM Refer to clinic/hospital department [facility] CLIA# [id number] [address] [place] [address] * (ABNORMAL) POC GLUCOSE (04/23/2008 8:56 PM CDT) GLUCOSE POC 132(H) 60 - 100 mg/dL [facility] Venous blood specimen (specimen) 04/23/2008 8:56 PM CDT 04/24/2008 1:58 AM CDT us Riky Mejía MD POINT OF CARE TESTING Final Result Performing Organization Address [facility] de Phone Number INTERFACE SYSTEM Refer to clinic/hospital department [facility] CLIA# [id number] [address] [place] [address] * (ABNORMAL) POC GLUCOSE (04/23/2008 4:37 PM CDT) GLUCOSE POC 129(H) 60 - 100 mg/dL [facility] Venous blood specimen (specimen) 04/23/2008 4:37 PM CDT 04/24/2008 1:58 AM CDT us Riky Mejía MD POINT OF CARE TESTING Final Result Performing Organization Address [facility] Phone Number INTERFACE SYSTEM Refer to clinic/hospital department [facility] CLIA# [id number] [address] [place] [address] * (ABNORMAL) POC GLUCOSE (04/23/2008 11:23 AM CDT) GLUCOSE POC 147(H) 60 - 100 mg/dL [facility] Venous blood specimen (specimen) 04/23/2008 11:23 AM CDT 04/24/2008 7:04 AM CDT us Riky Mejía MD POINT OF CARE TESTING Final Result Performing Organization Address [facility] de Phone Number INTERFACE SYSTEM Refer to clinic/hospital department [facility] CLIA# [id number] [address] [place] [address] * (ABNORMAL) POC GLUCOSE (04/23/2008 7:53 AM CDT) GLUCOSE POC 160(H) 60 - 100 mg/dL [facility] Venous blood specimen (specimen) 04/23/2008 7:53 AM CDT 04/24/2008 7:05 AM CDT Riky Mejía MD POINT OF CARE TESTING Final Result Performing Organization Address [facility] Phone Number INTERFACE SYSTEM Refer to clinic/hospital department [facility] CLIA# [id number] [address] [place] [address] * (ABNORMAL) BASIC METABOLIC PANEL (04/23/2008 3:33 [...] CHEMISTRY ORDERABLES Final Result Performing Organization Address [facility] Phone Number INTERFACE SYSTEM Refer to clinic/hospital department [facility] CLIA# [id number] [address] [place] [address] * (ABNORMAL) POC GLUCOSE (04/23/2008 3:22 AM CDT) GLUCOSE POC 130(H) 60 - 100 mg/dL [facility] Venous blood specimen (specimen) 04/23/2008 3:22 AM CDT 04/24/2008 7:07 AM CDT Riky Mejía MD POINT OF CARE TESTING Final Result Performing Organization Address [facility] de Phone Number INTERFACE SYSTEM Refer to clinic/hospital department [facility] CLIA# [id number] [address] [place] [address] * (ABNORMAL) POC GLUCOSE (04/22/2008 11:30 PM CDT) GLUCOSE POC 155(H) 60 - 100 mg/dL [facility] Venous blood specimen (specimen) 04/22/2008 11:30 PM CDT 04/23/2008 7:12 AM CDT Riky Mejía MD POINT OF CARE TESTING Final Result Performing Organization Address [facility] Phone Number INTERFACE SYSTEM Refer to clinic/hospital department [facility] CLIA# [id number] [address] [place] [address] * (ABNORMAL) POC GLUCOSE (04/22/2008 7:54 PM CDT) GLUCOSE POC 158(H) 60 - 100 mg/dL [facility] Venous blood specimen (specimen) 04/22/2008 7:54 PM CDT 04/23/2008 3:46 PM CDT Riky Mejía MD POINT OF CARE TESTING Final Result Performing Organization Address [facility] de Phone Number INTERFACE SYSTEM Refer to clinic/hospital department [facility] CLIA# [id number] [address] [place] [address] * (ABNORMAL) POC GLUCOSE (04/22/2008 4:09 PM CDT) GLUCOSE POC 129(H) 60 - 100 mg/dL [facility] Venous blood specimen (specimen) 04/22/2008 4:09 PM CDT 04/23/2008 3:46 PM CDT Riky Mejía MD POINT OF CARE TESTING Final Result Performing Organization Address [facility] de Phone Number INTERFACE SYSTEM Refer to clinic/hospital department [facility] CLIA# [id number] [address] [place] [address] * (ABNORMAL) POC GLUCOSE (04/22/2008 11:36 AM CDT) GLUCOSE POC 118(H) 60 - 100 mg/dL [facility] Venous blood specimen (specimen) 04/22/2008 11:36 AM CDT 04/23/2008 7:12 AM CDT Riky Mejía MD POINT OF CARE TESTING Final Result Performing Organization Address [facility] Phone Number INTERFACE SYSTEM Refer to clinic/hospital department [facility] CLIA# [id number] [address] [place] [address] * (ABNORMAL) POC GLUCOSE (04/22/2008 7:55 AM CDT) GLUCOSE POC 160(H) 60 - 100 mg/dL [facility] Venous blood specimen (specimen) 04/22/2008 7:55 AM CDT 04/24/2008 7:07 AM CDT Riky Mejía MD POINT OF CARE TESTING Final Result Performing Organization Address [facility] de Phone Number INTERFACE SYSTEM Refer to clinic/hospital department [facility] CLIA# [id number] [address] [place] [address] * (ABNORMAL) BASIC METABOLIC PANEL (04/22/2008 3:26 [...] CHEMISTRY ORDERABLES Final Result Performing Organization Address [facility] Phone Number INTERFACE SYSTEM Refer to clinic/hospital department [facility] CLIA# [id number] [address] [place] [address] * POC GLUCOSE (04/22/2008 3:17 AM CDT) GLUCOSE POC 73 60 - 100 mg/dL [facility] Venous blood specimen (specimen) 04/22/2008 3:17 AM CDT 04/22/2008 6:51 AM CDT Riky Mejía MD POINT OF CARE TESTING Final Result Performing Organization Address [facility] Phone Number INTERFACE SYSTEM Refer to clinic/hospital department [facility] CLIA# [id number] [address] [place] [address] * (ABNORMAL) POC GLUCOSE (04/21/2008 11:17 PM CDT) GLUCOSE POC 130(H) 60 - 100 mg/dL [facility] Venous blood specimen (specimen) 04/21/2008 11:17 PM CDT 04/22/2008 6:51 AM CDT us Riky Mejía MD POINT OF CARE TESTING Final Result Performing Organization Address [facility] de Phone Number INTERFACE SYSTEM Refer to clinic/hospital department [facility] CLIA# [id number] [address] [place] [address] * (ABNORMAL) POC GLUCOSE (04/21/2008 7:59 PM CDT) GLUCOSE POC 135(H) 60 - 100 mg/dL [facility] Venous blood specimen (specimen) 04/21/2008 7:59 PM CDT 04/22/2008 6:51 AM CDT us Riky Mejía MD POINT OF CARE TESTING Final Result Performing Organization Address [facility] de Phone Number INTERFACE SYSTEM Refer to clinic/hospital department [facility] CLIA# [id number] [address] [place] [address] * (ABNORMAL) POC GLUCOSE (04/21/2008 4:29 PM CDT) GLUCOSE POC 144(H) 60 - 100 mg/dL [facility] COMMENT POC Follow Protocol [facility] Venous blood specimen (specimen) 04/21/2008 4:29 PM CDT 04/22/2008 6:51 AM CDT us Riky Mejía MD POINT OF CARE TESTING Final Result Performing Organization Address [facility] de Phone Number INTERFACE SYSTEM Refer to clinic/hospital department [facility] CLIA# [id number] [address] [place] [address] * (ABNORMAL) POC GLUCOSE (04/21/2008 1:17 PM CDT) COMMENT POC Follow Protocol [facility] GLUCOSE POC 145(H) 60 - 100 mg/dL [facility] Venous blood specimen (specimen) 04/21/2008 1:17 PM CDT 04/22/2008 6:51 AM CDT Riky Mejía MD POINT OF CARE TESTING Final Result Performing Organization Address [facility] Phone Number INTERFACE SYSTEM Refer to clinic/hospital department [facility] CLIA# [id number] [address] [place] [address] * POTASSIUM LEVEL (04/21/2008 7:33 AM CDT) POTASSIUM 4.2 3.5 - 5.0 mEq/L [facility] Comment: Specimen slightly hemolyzed Blood specimen (specimen) 04/21/2008 7:33 AM CDT 04/21/2008 7:33 AM CDT Riky Mejía MD CHEMISTRY ORDERABLES Final Result Performing Organization Address [facility] Phone Number INTERFACE SYSTEM Refer to clinic/hospital department [facility] CLIA# [id number] [address] [place] [address] * (ABNORMAL) POC GLUCOSE (04/21/2008 7:26 AM CDT) GLUCOSE POC 146(H) 60 - 100 mg/dL [facility] Venous blood specimen (specimen) 04/21/2008 7:26 AM CDT 04/22/2008 6:51 AM CDT Riky Mejía MD POINT OF CARE TESTING Final Result Performing Organization Address [facility] Phone Number INTERFACE SYSTEM Refer to clinic/hospital department [facility] CLIA# [id number] [address] [place] [address] * (ABNORMAL) POC GLUCOSE (04/21/2008 2:58 AM CDT) Pathologist [facility] GLUCOSE POC 128(H) 60 - 100 mg/dL [facility] Venous blood specimen (specimen) 04/21/2008 2:58 AM CDT 04/21/2008 7:32 AM CDT Riky Mejía MD POINT OF CARE TESTING Final Result Performing Organization Address [facility] de Phone Number INTERFACE SYSTEM Refer to clinic/hospital department [facility] CLIA# [id number] [address] [place] [address] * (ABNORMAL) BASIC METABOLIC PANEL (04/21/2008 2:00 AM CDT) Pathologist [facility] ANION GAP 7(L) 9 - 20 mEq/L [...] CHEMISTRY ORDERABLES Final Result Performing Organization Address [facility] de Phone Number INTERFACE SYSTEM Refer to clinic/hospital department [facility] CLIA# [id number] [address] [place] [address] * (ABNORMAL) POC GLUCOSE (04/20/2008 11:57 PM CDT) Pathologist [facility] GLUCOSE POC 142(H) 60 - 100 mg/dL [facility] Venous blood specimen (specimen) 04/20/2008 11:57 PM CDT 04/21/2008 12:09 AM CDT Riky Mejía MD POINT OF CARE TESTING Final Result Performing Organization Address [facility] de Phone Number INTERFACE SYSTEM Refer to clinic/hospital department [facility] CLIA# [id number] [facility] [place] [address] * (ABNORMAL) BASIC METABOLIC PANEL (04/20/2008 11:40 PM CDT) [facility] POTASSIUM 3.8 3.5 - 5.0 mEq/L [facility] [...] CHEMISTRY ORDERABLES Final Result Performing Organization Address [facility] Co de Phone Number INTERFACE SYSTEM Refer to clinic/hospital department [facility] CLIA# [id number] [address] [place] [address] * (ABNORMAL) POC GLUCOSE (04/20/2008 7:17 PM CDT) GLUCOSE POC 134(H) 60 - 100 mg/dL [facility] Venous blood specimen (specimen) 04/20/2008 7:17 PM CDT 04/21/2008 12:00 AM CDT Riky Mejía MD POINT OF CARE TESTING Final Result Performing Organization Address [facility] de Phone Number INTERFACE SYSTEM Refer to clinic/hospital department [facility] CLIA# [id number] [address] [place] [address] * POTASSIUM LEVEL (04/20/2008 4:09 PM CDT) POTASSIUM 4.1 3.5 - 5.0 mEq/L [facility] Blood specimen (specimen) 04/20/2008 4:09 PM CDT 04/20/2008 4:09 PM CDT Riky Mejía MD CHEMISTRY ORDERABLES Final Result Performing Organization Address [facility] de Phone Number INTERFACE SYSTEM Refer to clinic/hospital department [facility] CLIA# [id number] [address] [place] [address] * (ABNORMAL) POC GLUCOSE (04/20/2008 3:59 PM CDT) GLUCOSE POC 118(H) 60 - 100 mg/dL [facility] Venous blood specimen (specimen) 04/20/2008 3:59 PM CDT 04/21/2008 12:00 AM CDT Riky Mejía MD POINT OF CARE TESTING Final Result Performing Organization Address [facility] de Phone Number INTERFACE SYSTEM Refer to clinic/hospital department [facility] CLIA# [id number] [address] [place] [address] * (ABNORMAL) POC GLUCOSE (04/20/2008 12:02 PM CDT) GLUCOSE POC 158(H) 60 - 100 mg/dL [facility] Venous blood specimen (specimen) 04/20/2008 12:02 PM CDT 04/21/2008 12:00 AM CDT Riky Mejía MD POINT OF CARE TESTING Final Result INTERFACE SYSTEM Refer to clinic/hospital department [facility] CLIA# [id number] [address] [place] [address] * (ABNORMAL) POC ISTAT EG 7+ (04/20/2008 10:06 AM CDT) SPECIMEN TYPE Arterial [facility] Comment: Test Performed By [id number] Pulse OX: 97 Hemoglobin calculated from Hematocrit [...] HEMATOCRIT ABG 31(L) 38 - 51 % [facility] PCO2 POC 48(H) 35 - 45 mmHg [facility] SODIUM 134(L) 138 - 146 mEq/L [facility] BASE EXCESS 12(H) -2 - 3 mmol/l [facility] PH 7.47(H) 7.35 - 7.45 Unit [facility] O2 SATURATION 97 95 - 98 % [facility] PO2 TEMP CORRECT 90 80 - 105 mmHg [facility] Arterial blood specimen (specimen) 04/20/2008 10:06 AM CDT 04/20/2008 11:14 AM CDT us Riky Mejía MD POINT OF CARE TESTING COM F inal Result Performing Organization Address [facility] de Phone Number INTERFACE SYSTEM Refer to clinic/hospital department [facility] CLIA# [id number] [address] [place] [address] * POTASSIUM LEVEL (04/20/2008 7:15 AM CDT) POTASSIUM 4.5 3.5 - 5.0 mEq/L [facility] Blood specimen (specimen) 04/20/2008 7:15 AM CDT 04/20/2008 7:20 AM CDT us Riky Mejía MD CHEMISTRY ORDERABLES Final Result Performing Organization Address [facility] de Phone Number INTERFACE SYSTEM Refer to clinic/hospital department [facility] CLIA# [id number] [address] [place] [address] * (ABNORMAL) POC GLUCOSE (04/20/2008 7:11 AM CDT) GLUCOSE POC 138(H) 60 - 100 mg/dL [facility] Venous blood specimen (specimen) 04/20/2008 7:11 AM CDT 04/20/2008 11:59 PM CDT us Riky Mejía MD POINT OF CARE TESTING Final Result Performing Organization Address City/[facility] de Phone Number INTERFACE SYSTEM Refer to clinic/hospital department [facility] CLIA# [id number] [address] [place] [address] * (ABNORMAL) POC ISTAT EG 7+ (04/20/2008 4:30 AM CDT) FIO2 30 [facility] HEMATOCRIT ABG 29(L) 38 - 51 % [facility] PO2 84 80 - 105 [...] O2 SATURATION 97 95 - 98 % [facility] SPECIMEN TYPE Arterial [facility] Comment: Test Performed By [id number] PEEP: 06 Pressure Support: 14 Pulse OX: [...] clinic/hospital department [facility] CLIA# [id number] [address] [place] [address] * (ABNORMAL) DIFFERENTIAL, MANUAL (04/20/2008 4:04 AM CDT) POIKILOCYTES 1+(A) None Seen [facility] MONOCYTE 9 4 - 10 % [facility] RBC MORPHOLOGY Abnormal(A ) Normal [facility] BANDS 11(H) 0 - 6 % [facility] POLYCHROMASIA 1+(A) None Seen [facility] EOSINOPHILS 1 0 - 3 % [facility] ANISOCYTOSIS 1+(A) None Seen [facility] PLATELET EST. Normal Normal [facility] LYMPHOCYTES 17(L) 24 - 44 % [facility] NEUTROPHILS, SEG 62 36 - 66 % [facility] Blood specimen (specimen) 04/20/2008 4:04 AM CDT 04/20/2008 4:16 AM CDT Narrative INTERFACE SYSTEM - 04/20/2008 5:12 AM CDT Differential ordered by policy. Riky Mejía MD HEMATOLOGY ORDERABLES COM F inal Result INTERFACE SYSTEM Refer to clinic/hospital department [facility] CLIA# [id number] [address] [place] [address] * (ABNORMAL) PT AND APTT (04/20/2008 4:04 AM CDT) PTT 31.3 22.5 - 36.5 Secs [facility] Comment: Therapeutic Range: Hi-level [...] INR 3.0; range 2.5 - 3.5 POST-MS Goal INR 2.5; range 2.0 - 3.0 or Goal 3.0; range 2.5 - 3.5 Atrial Fibrillation Goal INR 2.5; range 2.0 - 3.0 Ischemic Stroke Goal INR 2.5; range 2.0 - 3.0 For additional information see Guidelines for Anticoagulation available from the pharmacy [facility]. [phone] Blood specimen (specimen) 04/20/2008 4:04 AM CDT 04/20/2008 4:16 AM CDT Riky Mejía MD HEMATOLOGY ORDERABLES Edite d INTERFACE SYSTEM Refer to clinic/hospital department [facility] CLIA# [id number] [address] [place] [address] * (ABNORMAL) CBC WITH DIFFERENTIAL (04/20/2008 4:04 AM CDT) HEMATOCRIT 30.6(L) 36.0 - 46.0 % [facility] [...] HEMATOLOGY ORDERABLES Edite d Performing Organization Address [facility] Phone Number INTERFACE SYSTEM Refer to clinic/hospital department [facility] CLIA# [id number] [address] [place] [address] * (ABNORMAL) BASIC METABOLIC PANEL (04/20/2008 4:04 AM CDT) BUN 19(H) 7 - 17 mg/dL [facility] [...] CHEMISTRY ORDERABLES Final Result Performing Organization Address [facility] Phone Number INTERFACE SYSTEM Refer to clinic/hospital department [facility] CLIA# [id number] [address] [place] [address] * (ABNORMAL) POC GLUCOSE (04/20/2008 3:59 AM CDT) GLUCOSE POC 160(H) 60 - 100 mg/dL [facility] Venous blood specimen (specimen) 04/20/2008 3:59 AM CDT 04/20/2008 6:38 AM CDT Riky Mejía MD POINT OF CARE TESTING Final Result Performing Organization Address [facility] Phone Number INTERFACE SYSTEM Refer to clinic/hospital department [facility] CLIA# [id number] [address] [place] [address] * POTASSIUM LEVEL (04/19/2008 11:37 PM CDT) POTASSIUM 4.3 3.5 - 5.0 mEq/L [facility] Blood specimen (specimen) 04/19/2008 11:37 PM CDT 04/19/2008 11:46 PM CDT Riky Mejía MD CHEMISTRY ORDERABLES Final Result Performing Organization Address [facility] Phone Number INTERFACE SYSTEM Refer to clinic/hospital [facility] CLIA# [id number] [address] [place] [address] * (ABNORMAL) POC GLUCOSE (04/19/2008 11:30 PM CDT) GLUCOSE POC 156(H) 60 - 100 mg/dL [facility] Venous blood specimen (specimen) 04/19/2008 11:30 PM CDT 04/20/2008 6:37 AM CDT us Riky Mejía MD POINT OF CARE TESTING Final Result Performing Organization Address [facility] Phone Number INTERFACE SYSTEM Refer to clinic/hospital [facility] CLIA# [id number] [address] [place] [address] * (ABNORMAL) DIFFERENTIAL, MANUAL (04/19/2008 8:35 PM CDT) MONOCYTE 12(H) 4 - 10 % [facility] ANISOCYTOSIS 1+(A) None Seen [facility] BANDS 18(H) 0 - 6 % [facility] PLATELET EST. Normal Normal [facility] METAMYELOCYTE 2(H) 0 - 1 % [facility] POLYCHROMASIA 1+(A) None Seen [facility] LYMPHOCYTES 6(L) 24 - 44 % [facility] RBC MORPHOLOGY Abnormal(A ) Normal [facility] NEUTROPHILS, SEG 57 36 - 66 % [facility] MYELOCYTES 5(H) <=1 % [facility] GIANT PLATELETS Present(A) [facility] Blood specimen (specimen) 04/19/2008 8:35 PM CDT 04/19/2008 8:35 PM CDT Narrative INTERFACE SYSTEM - 04/19/2008 10:07 PM CDT Differential ordered by policy. Riky Mejía MD HEMATOLOGY ORDERABLES COM F inal Result INTERFACE SYSTEM Refer to clinic/hospital department [facility] CLIA# [id number] [address] [place] [address] * (ABNORMAL) PT AND APTT (04/19/2008 8:35 PM CDT) INR 1.3 [facility] Comment: Expected Values for INR: DVT/PE Goal INR 2.5; range 2.0 - 3.0 Valve Replacement Tissue Goal INR 2.5; range 2.0 - 3.0 Mechanical Goal INR 3.0; range 2.5 - 3.5 POST-MS Goal INR 2.5; range 2.0 - 3.0 or Goal 3.0; range 2.5 - 3.5 Atrial Fibrillation Goal INR 2.5; range 2.0 - 3.0 Ischemic Stroke Goal INR 2.5; range 2.0 - 3.0 For additional information see Guidelines for Anticoagulation available from the pharmacy [facility]. [phone] PROTIME 17.0(H) 12.8 - 15.8 Secs [facility] Comment:As of 2007 not e change in normal range. PTT 33.0 22.5 - 36.5 Secs [facility] Comment: Therapeutic Range: Hi-level [...] clinic/hospital department [facility] CLIA# [id number] [address] [place] [address] * (ABNORMAL) CBC WITH DIFFERENTIAL (04/19/2008 8:35 [...] HEMATOLOGY ORDERABLES Edite d Performing Organization Address City/[facility] Co de Phone Number INTERFACE SYSTEM Refer to clinic/hospital department [facility] CLIA# [id number] [address] [place] [address] * (ABNORMAL) POC GLUCOSE (04/19/2008 8:31 PM CDT) GLUCOSE POC 115(H) 60 - 100 mg/dL [facility] Venous blood specimen (specimen) 04/19/2008 8:31 PM CDT 04/20/2008 6:37 AM CDT Riky Mejía MD POINT OF CARE TESTING Final Result Performing Organization Address City/[facility] Co de Phone Number INTERFACE SYSTEM Refer to clinic/hospital department [facility] CLIA# [id number] [address] [place] [address] * XR CHEST PA OR AP (04/19/2008 [...] CARE TESTING Final Result Performing Organization Address [facility] Phone Number INTERFACE SYSTEM Refer to clinic/hospital department [facility] CLIA# [id number] [address] [place] [address] * POTASSIUM LEVEL (04/19/2008 4:30 PM CDT) POTASSIUM 4.0 3.5 - 5.0 mEq/L [facility] Blood specimen (specimen) 04/19/2008 4:30 PM CDT 04/19/2008 4:30 PM CDT Riky Mejía MD CHEMISTRY ORDERABLES Final Result Performing Organization Address [facility] Phone Number INTERFACE SYSTEM Refer to clinic/hospital department [facility] CLIA# [id number] [address] [place] [address] * (ABNORMAL) POC GLUCOSE (04/19/2008 12:04 PM CDT) GLUCOSE POC 139(H) 60 - 100 mg/dL [facility] Venous blood specimen (specimen) 04/19/2008 12:04 PM CDT 04/20/2008 7:00 AM CDT us Riky Mejía MD POINT OF CARE TESTING Final Result Performing Organization Address [facility] Phone Number INTERFACE SYSTEM Refer to clinic/hospital department [facility] CLIA# [id number] [address] [place] [address] * (ABNORMAL) POC GLUCOSE (04/19/2008 8:28 AM CDT) GLUCOSE POC 144(H) 60 - 100 mg/dL [facility] Venous blood specimen (specimen) 04/19/2008 8:28 AM CDT 04/20/2008 7:00 AM CDT Riky Mejía MD POINT OF CARE TESTING Final Result INTERFACE SYSTEM Refer to clinic/hospital department [facility] CLIA# [id number] [address] [place] [address] * XR CHEST PA OR AP (04/19/2008 [...] 3:20 AM CDT) ANISOCYTOSIS 1+(A) None Seen [facility] LYMPHOCYTES 15(L) 24 - 44 % [facility] MYELOCYTES 1 <=1 % [facility] MONOCYTE 4 4 - 10 % [facility] NEUTROPHILS, SEG 73(H) 36 - 66 % [facility] POIKILOCYTES 1+(A) None Seen [facility] PLATELET EST. Normal Normal [facility] BANDS 6 0 - 6 % [facility] POLYCHROMASIA Present(A) None Seen [facility] EOSINOPHILS 1 0 - 3 % [facility] Blood specimen (specimen) 04/19/2008 3:20 AM CDT 04/19/2008 3:20 AM CDT Narrative INTERFACE SYSTEM - 04/19/2008 3:58 AM CDT Differential ordered by policy. us Riky Mejía MD HEMATOLOGY ORDERABLES COM F inal Result INTERFACE SYSTEM Refer to clinic/hospital department [facility] CLIA# [id number] [address] [place] [address] * (ABNORMAL) COMPREHENSIVE METABOLIC PANEL (04/19/2008 3:20 [...] LAB AST 73(H) 8 - 33 U/L [facility] CO2 37(H) 22 - [...] clinic/hospital department [facility] CLIA# [id number] [address] [place] [address] * (ABNORMAL) CBC WITH DIFFERENTIAL (04/19/2008 3:20 [...] HEMATOLOGY ORDERABLES Edite d Performing Organization Address [facility] Phone Number INTERFACE SYSTEM Refer to clinic/hospital department [facility] CLIA# [id number] [address] [place] [address] * POTASSIUM LEVEL (04/18/2008 11:41 PM CDT) POTASSIUM 3.9 3.5 - 5.0 mEq/L [facility] Blood specimen (specimen) 04/18/2008 11:41 PM CDT 04/18/2008 11:41 PM CDT Riky Mejía MD CHEMISTRY ORDERABLES Final Result Performing Organization Address [facility] Phone Number INTERFACE SYSTEM Refer to clinic/hospital department [facility] CLIA# [id number] [address] [place] [address] * POTASSIUM LEVEL (04/18/2008 3:49 PM CDT) POTASSIUM 4.0 3.5 - 5.0 mEq/L [facility] Blood specimen (specimen) 04/18/2008 3:49 PM CDT 04/18/2008 3:49 PM CDT Riky Mejía MD CHEMISTRY ORDERABLES Final Result Performing Organization Address City/[facility] de Phone Number INTERFACE SYSTEM Refer to clinic/hospital department [facility] CLIA# [id number] [address] [place] [address] * (ABNORMAL) POC GLUCOSE (04/18/2008 7:29 AM CDT) Pathologist [facility] GLUCOSE POC 153(H) 60 - 100 mg/dL [facility] Venous blood specimen (specimen) 04/18/2008 7:29 AM CDT 04/19/2008 6:47 AM CDT Riky Mejía MD POINT OF CARE TESTING Final Result Performing Organization Address [facility] de Phone Number INTERFACE SYSTEM Refer to clinic/hospital department [facility] CLIA# [id number] [address] [place] [address] * (ABNORMAL) CBC WITH DIFFERENTIAL (04/18/2008 3:29 AM CDT) [facility] RDW 17.0(H) 11.0 - 14.5 % [facility] [...] clinic/hospital department [facility] CLIA# [id number] [address] [place] [address] * (ABNORMAL) COMPREHENSIVE METABOLIC PANEL (04/18/2008 3:29 AM CDT) AST 133(H) 8 - 33 U/L [facility] ALBUMIN/GLOBULIN RATIO 0.9(L) 1.0 [...] CHEMISTRY ORDERABLES Final Result Performing Organization Address [facility] de Phone Number INTERFACE SYSTEM Refer to clinic/hospital department [facility] CLIA# [id number] [address] [place] [address] * POTASSIUM LEVEL (04/17/2008 6:15 PM CDT) POTASSIUM 3.8 3.5 - 5.0 mEq/L [facility] Blood specimen (specimen) 04/17/2008 6:15 PM CDT 04/17/2008 6:19 PM CDT Narrative INTERFACE SYSTEM - 04/17/2008 6:44 PM CDT stat us Riky Mejía MD CHEMISTRY ORDERABLES Final Result Performing Organization Address City/[facility] de Phone Number INTERFACE SYSTEM Refer to clinic/hospital department [facility] CLIA# [id number] [address] [place] [address] * (ABNORMAL) POC GLUCOSE (04/17/2008 6:10 PM CDT) GLUCOSE POC 103(H) 60 - 100 mg/dL [facility] Venous blood specimen (specimen) 04/17/2008 6:10 PM CDT 04/18/2008 7:19 AM CDT Riky Mejía MD POINT OF CARE TESTING Final Result Performing Organization Address [facility] de Phone Number INTERFACE SYSTEM Refer to clinic/hospital department [facility] CLIA# [id number] [facility] [place] [address] * (ABNORMAL) POC GLUCOSE (04/17/2008 8:18 AM CDT) GLUCOSE POC 149(H) 60 - 100 mg/dL [facility] Venous blood specimen (specimen) 04/17/2008 8:18 AM CDT 04/18/2008 7:18 AM CDT Riky Mejía MD POINT OF CARE TESTING Final Result Performing Organization Address [facility] de Phone Number INTERFACE SYSTEM Refer to clinic/hospital department [facility] CLIA# [id number] [facility] [place] [address] * (ABNORMAL) POC ISTAT EG 7+ (04/17/2008 5:31 AM CDT) SODIUM 138 138 - 146 mEq/L [facility] PH 7.49(H) 7.35 - 7.45 Unit [facility] PO2 TEMP CORRECT 92 80 - 105 mmHg [facility] O2 SATURATION 98 95 - 98 % [facility] SPECIMEN TYPE Arterial [facility] Comment: Test Performed By [id number] Tidal volume: 450 PEEP: 08 Rate: 10 [...] HEMATOCRIT ABG 28(L) 38 - 51 % [facility] PO2 92 80 - 105 [...] to clinic/hospital department [facility]# [id number] [address] [place] [address] * (ABNORMAL) POC ISTAT EG 7+ (04/17/2008 [...] O2 SATURATION 100(H) 95 - 98 % [facility] SPECIMEN TYPE Arterial [facility] Comment: Test Performed By [id number] Tidal volume: 500 PEEP: 08 Rate: 12 [...] HEMATOCRIT ABG 30(L) 38 - 51 % [facility] PO2 448(H) 80 - 105 mmHg [facility] CALCIUM IONIZED 1.01(L) 1.12 - 1.32 mmol/l [facility] Arterial blood specimen (specimen) 04/17/2008 4:22 AM CDT 04/17/2008 5:21 AM CDT us Riky Mejía MD POINT OF CARE TESTING COM F inal Result INTERFACE SYSTEM Refer to clinic/hospital department [facility] CLIA# [id number] [address] [place] [address] * (ABNORMAL) CBC WITH DIFFERENTIAL (04/17/2008 2:07 [...] clinic/hospital department [facility] CLIA# [id number] [address] [place] [address] * PHOSPHORUS (04/17/2008 2:07 AM CDT) PHOSPHORUS 3.0 2.5 - 4.6 mg/dL [facility] Blood specimen (specimen) 04/17/2008 2:07 AM CDT 04/17/2008 2:12 AM CDT Riky Mejía MD CHEMISTRY ORDERABLES Final Result Performing Organization Address City/State/[facility] Co de Phone Number INTERFACE SYSTEM Refer to clinic/hospital department [facility] CLIA# [id number] [facility] [place] [address] * (ABNORMAL) COMPREHENSIVE METABOLIC PANEL (04/17/2008 2:07 AM CDT) Pathologist [facility] GLOBULIN (CALC) 2.7 2.4 - 3.9 g/dL [facility] SODIUM 141 136 - 145 mEq/L [facility] BILIRUBIN TOTAL 2.6(H) 0.3 - 1.2 mg/dL [facility] TOTAL PROTEIN 4.9(L) 6.3 - 8.2 g/dL [facility] BUN 16 7 - 17 mg/dL [facility] AST 52(H) 8 - 33 U/L [facility] CO2 36(H) 22 - [...] CHEMISTRY ORDERABLES Final Result Performing Organization Address [facility] Phone Number INTERFACE SYSTEM Refer to clinic/hospital department [facility] CLIA# [id number] [address] [place] [address] * (ABNORMAL) TRIGLYCERIDE (04/17/2008 2:07 AM CDT) TRIGLYCERIDE 326(H) 0 - 150 mg/dL [facility] Comment: On 11/10/2007, [facility] changed the triglyceride reference range to 0-150 mg/dl. This is the recommendation of the National Cholesterol Education Program (NCEP-ATPIII). Blood specimen (specimen) 04/17/2008 2:07 AM CDT 04/17/2008 2:12 AM CDT Riky Mejía MD CHEMISTRY ORDERABLES Final Result Performing Organization Address [facility] Phone Number INTERFACE SYSTEM Refer to clinic/hospital department [facility] CLIA# [id number] [address] [place] [address] * (ABNORMAL) POC GLUCOSE (04/16/2008 6:56 PM CDT) GLUCOSE POC 151(H) 60 - 100 mg/dL [facility] Venous blood specimen (specimen) 04/16/2008 6:56 PM CDT 04/17/2008 12:06 PM CDT Riky Mejía MD POINT OF CARE TESTING Final Result Performing Organization Address [facility] Phone Number INTERFACE SYSTEM Refer to clinic/hospital department [facility] CLIA# [id number] [address] [place] [address] * POTASSIUM LEVEL (04/16/2008 4:43 PM CDT) POTASSIUM 3.7 3.5 - 5.0 mEq/L [facility] Comment: Specimen slightly hemolyzed. Slight icteric. Blood specimen (specimen) 04/16/2008 4:43 PM CDT 04/16/2008 4:43 PM CDT Riky Mejía MD CHEMISTRY ORDERABLES Final Result INTERFACE SYSTEM Refer to clinic/hospital department [facility] CLIA# [id number] [address] [place] [address] * (ABNORMAL) POC ISTAT EG 7+ (04/16/2008 12:11 PM CDT) POTASSIUM 3.5 3.5 - 4.9 mEq/L [facility] SPECIMEN TYPE Arterial [facility] Comment: Test Performed By [id number] Pulse OX: 97 Hemoglobin calculated from Hematocrit [...] HEMATOCRIT ABG 29(L) 38 - 51 % [facility] PCO2 POC 59(H) 35 - 45 mmHg [facility] SODIUM 135(L) 138 - 146 mEq/L [facility] BASE EXCESS 10(H) -2 - 3 mmol/l [facility] PH 7.39 7.35 - 7.45 Unit [facility] O2 SATURATION 97 95 - 98 % [facility] PO2 TEMP CORRECT 93 80 - 105 mmHg [facility] Arterial blood specimen (specimen) 04/16/2008 12:11 PM CDT 04/16/2008 12:15 PM CDT Riky Mejía MD POINT OF CARE TESTING COM F inal Result Performing Organization Address City/[facility] de Phone Number INTERFACE SYSTEM Refer to clinic/hospital department [facility] CLIA# [id number] [address] [place] [address] * (ABNORMAL) POC GLUCOSE (04/16/2008 7:40 AM CDT) GLUCOSE POC 166(H) 60 - 100 mg/dL [facility] Venous blood specimen (specimen) 04/16/2008 7:40 AM CDT 04/17/2008 12:06 PM CDT Riky Mejía MD POINT OF CARE TESTING Final Result Performing Organization Address [facility] Phone Number INTERFACE SYSTEM Refer to clinic/hospital department [facility] CLIA# [id number] [address] [place] [address] * (ABNORMAL) POC ISTAT EG 7+ (04/16/2008 [...] O2 SATURATION 97 95 - 98 % [facility] SPECIMEN TYPE Arterial [facility] Comment: Test Performed By [id number] Tidal volume: 500 PEEP: 06 Rate: 12 [...] HEMATOCRIT ABG 27(L) 38 - 51 % [facility] PO2 83 80 - 105 mmHg [facility] Arterial blood specimen (specimen) 04/16/2008 5:16 AM CDT 04/16/2008 5:51 AM CDT us Riky Mejía MD POINT OF CARE TESTING COM F inal Result INTERFACE SYSTEM Refer to clinic/hospital department [facility] CLIA# [id number] [address] [place] [address] * (ABNORMAL) POC GLUCOSE (04/16/2008 5:12 AM CDT) GLUCOSE POC 151(H) 60 - 100 mg/dL [facility] Venous blood specimen (specimen) 04/16/2008 5:12 AM CDT 04/16/2008 6:51 AM CDT us Riky eMjía MD POINT OF CARE TESTING Final Result INTERFACE SYSTEM Refer to clinic/hospital department [facility] CLIA# [id number] [address] [place] [address] * XR CHEST PA OR AP (04/16/2008 [...] Frederic Vieyra M.D. Electronically Signed By: Frederic Vieyar M.D. Date Signed: 04/16/08 Procedure Note Frederic [...] contours are stable. - Dictated By: Frederic Vieyar M.D. Electronically Signed By: Frederic Vieyra M.D. [...] clinic/hospital department [facility] CLIA# [id number] [address] [place] [address] * (ABNORMAL) COMPREHENSIVE METABOLIC PANEL (04/16/2008 3:20 AM CDT) AST 58(H) 8 - 33 U/L [facility] CO2 32 22 - [...] CHEMISTRY ORDERABLES Final Result Performing Organization Address [facility] Phone Number INTERFACE SYSTEM Refer to clinic/hospital department [facility] CLIA# [id number] [address] [place] [address] * (ABNORMAL) POC GLUCOSE (04/15/2008 6:36 PM CDT) GLUCOSE POC 110(H) 60 - 100 mg/dL [facility] Venous blood specimen (specimen) 04/15/2008 6:36 PM CDT 04/16/2008 6:51 AM CDT us Riky Mejía MD POINT OF CARE TESTING Final Result Performing Organization Address [facility] Phone Number INTERFACE SYSTEM Refer to clinic/hospital department [facility] CLIA# [id number] [address] [place] [address] * (ABNORMAL) HEMOGLOBIN AND HEMATOCRIT (04/15/2008 4:00 PM CDT) HEMOGLOBIN 7.8(L) 12.0 - 16.0 g/dL [facility] HEMATOCRIT 24.1(L) 36.0 - 46.0 % [facility] Blood specimen (specimen) 04/15/2008 4:00 PM CDT 04/15/2008 4:00 PM CDT us Riky Mejía MD HEMATOLOGY ORDERABLES Final Result Performing Organization Address [facility] Phone Number INTERFACE SYSTEM Refer to clinic/hospital department [facility] CLIA# [id number] [address] [place] [address] * (ABNORMAL) VANCOMYCIN LEVEL TROUGH (04/15/2008 9:53 AM CDT) VANCOMYCIN, TROUGH 18.3(H) 5.0 - 15.0 mcg/mL [facility] Blood specimen (specimen) 04/15/2008 9:53 AM CDT 04/15/2008 9:53 AM CDT Riky Mejía MD CHEMISTRY ORDERABLES Final Result Performing Organization Address [facility] Phone Number INTERFACE SYSTEM Refer to clinic/hospital department [facility] CLIA# [id number] [address] [place] [address] * (ABNORMAL) TRIGLYCERIDE (04/15/2008 9:53 AM CDT) TRIGLYCERIDE 435(H) 0 - 150 mg/dL [facility] Comment: On 11/10/2007, [facility] changed the triglyceride reference range to 0-150 mg/dl. This is the recommendation of the National Cholesterol Education Program (NCEP-ATPIII). Blood specimen (specimen) 04/15/2008 9:53 AM CDT 04/15/2008 9:53 AM CDT Riky Mejía MD CHEMISTRY ORDERABLES Final Result Performing Organization Address [facility] Phone Number INTERFACE SYSTEM Refer to clinic/hospital department [facility] CLIA# [id number] [address] [place] [address] * PROTIME-INR (04/15/2008 9:53 AM CDT) PROTIME 15.2 12.8 - 15.8 Secs [facility] Comment:As of 2007 not e change in normal range. INR 1.1 [facility] Comment: Expected Values for INR: DVT/PE Goal INR 2.5; range 2.0 - 3.0 Valve Replacement Tissue Goal INR 2.5; range 2.0 - 3.0 Mechanical Goal INR 3.0; range 2.5 - 3.5 POST-MS Goal INR 2.5; range 2.0 - 3.0 or Goal 3.0; range 2.5 - 3.5 Atrial Fibrillation Goal INR 2.5; range 2.0 - 3.0 Ischemic Stroke Goal INR 2.5; range 2.0 - 3.0 For additional information see Guidelines for Anticoagulation available from the pharmacy [facility]rach[facility] Pham. [phone] Blood specimen (specimen) 04/15/2008 9:53 AM CDT 04/15/2008 9:53 AM CDT Riky Mejía MD HEMATOLOGY ORDERABLES Final Result Performing Organization Address [facility] Phone Number INTERFACE SYSTEM Refer to clinic/hospital department [facility] CLIA# [id number] [address] [place] [address] * (ABNORMAL) TRANSFERRIN (04/15/2008 9:53 AM CDT) TRANSFERRIN 59.0(L) 204.0 - 376.0 mg/dL [facility] Comment: Specimen slightly hemolyzed Blood specimen (specimen) 04/15/2008 9:53 AM CDT 04/15/2008 9:53 AM CDT Riky Mejía MD CHEMISTRY ORDERABLES Final Result Performing Organization Address [facility] Phone Number INTERFACE SYSTEM Refer to clinic/hospital [facility] CLIA# [id number] [address] [place] [address] * (ABNORMAL) PREALBUMIN (04/15/2008 9:53 AM CDT) PREALBUMIN <5.0(L) 14.0 - 32.0 mg/dL [facility] Comment: Test Repeated; Results confirmed Blood specimen (specimen) 04/15/2008 9:53 AM CDT 04/15/2008 9:53 AM CDT Riky Mejía MD CHEMISTRY ORDERABLES Final Result Performing Organization Address [facility] Phone Number INTERFACE SYSTEM Refer to clinic/hospital [facility] CLIA# [id number] [address] [place] [address] * PHOSPHORUS (04/15/2008 9:53 AM CDT) PHOSPHORUS 3.9 2.5 - 4.6 mg/dL [facility] Blood specimen (specimen) 04/15/2008 9:53 AM CDT 04/15/2008 9:53 AM CDT us Riky Mejía MD CHEMISTRY ORDERABLES Edited Performing Organization Address [facility] Phone Number INTERFACE SYSTEM Refer to clinic/hospital department [facility] CLIA# [id number] [address] [place] [address] * (ABNORMAL) MAGNESIUM LEVEL (04/15/2008 9:53 AM CDT) MAGNESIUM 1.3(L) 1.7 - 2.4 mg/dL [facility] Blood specimen (specimen) 04/15/2008 9:53 AM CDT 04/15/2008 9:53 AM CDT us Riky Mejía MD CHEMISTRY ORDERABLES Edited Performing Organization Address [facility] de Phone Number INTERFACE SYSTEM Refer to clinic/hospital department [facility] CLIA# [id number] [address] [place] [address] * (ABNORMAL) POC ISTAT EG 7+ (04/15/2008 4:13 AM CDT) PH 7.49(H) 7.35 - 7.45 Unit [facility] PO2 TEMP CORRECT 68(L) 80 - 105 mmHg [facility] O2 SATURATION 94(L) 95 - 98 % [facility] SPECIMEN TYPE Arterial [facility] Comment: Test Performed By [id number] Tidal volume: 500 PEEP: 06 Rate: 12 [...] HEMATOCRIT ABG 27(L) 38 - 51 % [facility] PO2 68(L) 80 - 105 [...] to clinic/hospital department [facility]# [id number] [address] [place] [address] * XR CHEST PA OR AP (04/15/2008 [...] By: April Chaparro M.D. Date Signed: 04/15/08 [facility] Procedure Note April Chaparro MD - 04/15/2008 Exam: Chest - Portable Date/Time of Exam: Apr 15, 2008 4:08:09 AM History: Postoperative. Findings: Comparison study 04/14/08. Life support lines stable in position.Decreased lung volumes with bibasilar plate atelectasis. Cardiac silhouette stable and within normallimits. Impression: No significant change. - Dictated By: Apirl Chaparro M.D. Electronically Signed By: April Chaparro M.D. Date Signed: 04/15/08 [facility] Heriberto Carrera MD DIAGNOSTIC IMAGING [...] LAB AST 73(H) 8 - 33 U/L [facility] CO2 36(H) 22 - [...] clinic/hospital department [facility] CLIA# [id number] [address] [place] [address] * (ABNORMAL) CBC WITH DIFFERENTIAL (04/15/2008 3:17 [...] esult INTERFACE SYSTEM Refer to clinic/hospital department [facility]# [id number] [address] [place] [address] * XR CHEST PA OR AP (04/14/2008 [...] Ari Ly Jr., M.D. Date Signed: 04/14/08 [facility] Procedure Note Ari Ly Jr. [...] Ari Ly Jr., M.D. Date Signed: 04/14/08 [facility] us Riky Mejía MD DIAGNOSTIC IMAGING ORDERABL ES Final Result * (ABNORMAL) POC ISTAT EG 7+ (04/14/2008 3:23 AM CDT) SODIUM 134(L) 138 - 146 mEq/L [facility] PH 7.60(AA) 7.35 - 7.45 Unit [facility] PO2 TEMP CORRECT 92 80 - 105 mmHg [facility] O2 SATURATION 98 95 - 98 % [facility] SPECIMEN TYPE Arterial [facility] Comment: Test Performed By [id number] Critical result performed at the point of [...] HEMATOCRIT ABG 32(L) 38 - 51 % [facility] PO2 92 80 - 105 [...] clinic/hospital department [facility] CLIA# [id number] [address] [place] [address] * (ABNORMAL) DIFFERENTIAL, MANUAL (04/14/2008 1:37 AM CDT) NEUTROPHILS, SEG 57 36 - 66 % [facility] METAMYELOCYTE 1 0 - 1 % [facility] POIKILOCYTES 1+(A) None Seen [facility] MONOCYTE 5 4 - 10 % [facility] RBC MORPHOLOGY Abnormal(A ) Normal [facility] BANDS 27(H) 0 - 6 % [facility] POLYCHROMASIA Present(A) None Seen [facility] MYELOCYTES 1 <=1 % [facility] EOSINOPHILS 1 0 - 3 % [facility] ANISOCYTOSIS 1+(A) None Seen [facility] LYMPHOCYTES 8(L) 24 - 44 % [facility] PLATELET EST. Normal Normal [facility] Comment: OCC PLATELET CLUMPS NOTED ON REVIEW OF SMEAR. Blood specimen (specimen) 04/14/2008 1:37 AM CDT 04/14/2008 1:40 AM CDT Narrative INTERFACE SYSTEM - 04/14/2008 2:01 AM CDT Differential ordered by policy. Riky Mejía MD HEMATOLOGY ORDERABLES COM F inal Result INTERFACE SYSTEM Refer to clinic/hospital department [facility] CLIA# [id number] [address] [place] [address] * (ABNORMAL) BASIC METABOLIC PANEL (04/14/2008 1:37 [...] CHEMISTRY ORDERABLES Final Result Performing Organization Address [facility] Phone Number INTERFACE SYSTEM Refer to clinic/hospital department [facility] CLIA# [id number] [address] [place] [address] * (ABNORMAL) CBC WITH DIFFERENTIAL (04/14/2008 1:37 [...] HEMATOLOGY ORDERABLES Edite d Performing Organization Address [facility] de Phone Number INTERFACE SYSTEM Refer to clinic/hospital department [facility] CLIA# [id number] [address] [place] [address] * LACTIC ACID (04/13/2008 9:12 PM CDT) LACTIC ACID 1.4 0.5 - 2.2 mEq/L [facility] Blood specimen (specimen) 04/13/2008 9:12 PM CDT 04/13/2008 9:18 PM CDT us Riky Mejía MD CHEMISTRY ORDERABLES Final Result INTERFACE SYSTEM Refer to clinic/hospital department [facility] CLIA# [id number] [facility] [place] [address] * (ABNORMAL) POC ISTAT EG 7+ (04/13/2008 8:41 PM CDT) Pathologist [facility] POTASSIUM 3.8 3.5 - 4.9 mEq/L [facility] [...] HEMATOCRIT ABG 36(L) 38 - 51 % [facility] PCO2 POC 56(H) 35 - 45 mmHg [facility] SODIUM 135(L) 138 - 146 mEq/L [facility] BASE EXCESS 21(H) -2 - 3 mmol/l [facility] PH 7.51(H) 7.35 - 7.45 Unit [facility] O2 SATURATION 99(H) 95 - 98 % [facility] PO2 TEMP CORRECT 129(H) 80 - 105 mmHg [facility] SPECIMEN TYPE Arterial [facility] Comment: Test Performed By [id number] PEEP: 10 Rate: 12 Pulse OX: 100 Hemoglobin calculated from Hematocrit result PCO2 TEMP CORRECT 56(H) 35 - 45 mmHg [facility] HEMOGLOBIN POC 12.2 +/-3 g/dL 12.0 - 16.0 g/dL [facility] Arterial blood specimen (specimen) 04/13/2008 8:41 PM CDT 04/13/2008 8:44 PM CDT Riky Mejía MD POINT OF CARE TESTING COM F inal Result Performing Organization Address [facility] de Phone Number INTERFACE SYSTEM Refer to clinic/hospital department [facility] CLIA# [id number] [address] [place] [address] * (ABNORMAL) POC GLUCOSE (04/13/2008 8:33 PM CDT) GLUCOSE POC 115(H) 60 - 100 mg/dL [facility] Venous blood specimen (specimen) 04/13/2008 8:33 PM CDT 04/14/2008 5:56 AM CDT Riky Mejía MD POINT OF CARE TESTING Final Result Performing Organization Address [facility] de Phone Number INTERFACE SYSTEM Refer to clinic/hospital department [facility] CLIA# [id number] [address] [place] [address] * (ABNORMAL) BASIC METABOLIC PANEL (04/13/2008 7:58 [...] clinic/hospital department [facility] CLIA# [id number] [address] [place] [address] * (ABNORMAL) CBC WITH DIFFERENTIAL (04/13/2008 7:58 [...] ORDERABLES Final Result Performing Organization Address City/State/[facility] Phone Number INTERFACE SYSTEM Refer to clinic/hospital department [facility]# [id number] [address] [place] [address] * XR CHEST PA OR AP (04/13/2008 [...] radiopaque tubes and lines that overlie the [id number]. There is vascular congestion, and there is likely a right lower lobe infiltrate that obscures the right diaphragm. - Dictated By: Riky Jarvsi M.D. Electronically Signed By: Riky Jarvis M.D. [...] radiopaque tubes and lines that overlie the [id number]-[id number]. There is vascular congestion,and there is likely a right lower lobe infiltrate that obscures the right diaphragm. - Dictated By: Riky Jarvis M.D. Electronically Signed By: Riky Jarvis M.D. Date Signed: 04/13/08 Riky Mejía MD DIAGNOSTIC IMAGING ORDERABL ES Final Result * (ABNORMAL) POC ISTAT EG 7+ (04/13/2008 6:02 PM CDT) TEMPERATURE 37.9 DegC [facility] PO2 138(H) 80 - 105 mmHg [facility] CALCIUM IONIZED 1.06(L) 1.12 - 1.32 mmol/l [facility] HEMATOCRIT ABG 29(L) 38 - 51 % [facility] SPECIMEN TYPE Arterial [facility] Comment: Test Performed By [id number] Critical result performed at the point of [...] O2 SATURATION 100(H) 95 - 98 % [facility] PO2 TEMP CORRECT 144(H) 80 - [...] COM F inal Result Performing Organization Address [facility] de Phone Number INTERFACE SYSTEM Refer to clinic/hospital department [facility] CLIA# [id number] [address] [place] [address] * LACTIC ACID (04/13/2008 5:36 PM CDT) [facility] LACTIC ACID 1.5 0.5 - 2.2 mEq/L [facility] Blood specimen (specimen) 04/13/2008 5:36 PM CDT 04/13/2008 5:36 PM CDT Riky Mejía MD CHEMISTRY ORDERABLES Final Result Performing Organization Address [facility] Phone Number INTERFACE SYSTEM Refer to clinic/hospital department [facility] CLIA# [id number] [facility] [place] [address] * TYPE AND CROSSMATCH (04/13/2008 5:34 PM CDT) [facility] BLOOD BANK PRODUCT INTERFACE SYSTEM Blood specimen (specimen) 04/13/2008 5:34 PM CDT 04/13/2008 5:34 PM CDT Riky Mejía MD BLOOD BANK ORDERABLES Final Result Performing Organization Address [facility] de Phone Number INTERFACE SYSTEM Refer to clinic/hospital department * ANTIBODY SCREEN (04/13/2008 5:34 PM CDT) Pathologist [facility] ANTIBODY SCREEN Negative [facility] Blood specimen (specimen) 04/13/2008 5:34 PM CDT 04/13/2008 5:34 PM CDT Riky Mejía MD BLOOD BANK ORDERABLES Edite d Performing Organization Address [facility] de Phone Number INTERFACE SYSTEM Refer to clinic/hospital department [facility] CLIA# [id number] [address] [place] [address] * ABORH TYPING (04/13/2008 5:34 PM CDT) Pathologist [facility] ABO/RH TYPE O Positive [facility] Blood specimen (specimen) 04/13/2008 5:34 PM CDT 04/13/2008 5:34 PM CDT us Riky Mejía MD BLOOD BANK ORDERABLES Final Result Performing Organization Address [facility] Phone Number INTERFACE SYSTEM Refer to clinic/hospital department [facility] CLIA# [id number] [address] [place] [address] * (ABNORMAL) BASIC METABOLIC PANEL (04/13/2008 5:29 [...] clinic/hospital department [facility] CLIA# [id number] [address] [place] [address] * PT AND APTT (04/13/2008 5:29 PM CDT) INR 1.1 [facility] Comment: Expected Values for INR: DVT/PE Goal INR 2.5; range 2.0 - 3.0 Valve Replacement Tissue Goal INR 2.5; range 2.0 - 3.0 Mechanical Goal INR 3.0; range 2.5 - 3.5 POST-MS Goal INR 2.5; range 2.0 - 3.0 or Goal 3.0; range 2.5 - 3.5 Atrial Fibrillation Goal INR 2.5; range 2.0 - 3.0 Ischemic Stroke Goal INR 2.5; range 2.0 - 3.0 For additional information see Guidelines for Anticoagulation available from the pharmacy [facility]ol[facility] Pharm D. [phone] PTT 33.1 22.5 - 36.5 Secs [facility] Comment: Therapeutic Range: Hi-level [...] clinic/hospital department [facility] CLIA# [id number] [facility] [place] [address] * (ABNORMAL) CBC WITH DIFFERENTIAL (04/13/2008 5:29 [...] clinic/hospital department [facility] CLIA# [id number] [address] [place] [address] * (ABNORMAL) POC ISTAT EG 7+ (04/13/2008 5:26 PM CDT) PH 7.68(AA) 7.35 - 7.45 Unit [facility] O2 SATURATION 100(H) 95 - 98 % [facility] PO2 TEMP CORRECT 174(H) 80 - [...] [facility] TEMPERATURE 37.8 DegC [facility] PO2 170(H) 80 - 105 mmHg [facility] CALCIUM IONIZED 0.95(L) 1.12 - 1.32 mmol/l [facility] HEMATOCRIT ABG 28(L) 38 - 51 % [facility] SPECIMEN TYPE Arterial [facility] Comment: Test Performed By [id number] Critical result performed at the point of [...] COM F inal Result Performing Organization Address City/[facility] Co de Phone Number INTERFACE SYSTEM Refer to clinic/hospital department [facility] CLIA# [id number] [address] [place] [address] * MRSA CULTURE (04/13/2008 4:30 PM CDT) FINAL REPORT Culture screen for MRSA negative INTERFACE SYSTEM 04/13/2008 4:30 PM CDT 04/13/2008 6:57 PM CDT Riky Mejía MD MICROBIOLOGY - GENERAL ORDE RABLES Final Result Performing Organization Address [facility] de Phone Number INTERFACE SYSTEM Refer to clinic/hospital department documented in this encounter Visit Diagnoses Not on filedocumented in this encounter Additional Health Concerns Infection Onset Date Last Indicated Resolved Time MRSA Comment:Kapil 10/26/15 10/27/2015 10/27/2015 documented as of this encounter Care Teams Aviation Neuropsychologist Relationship Specialty Start Date End Date Jose Bowers MD [address] [place] [address] PCP - General 12/31/05 documented as of this encounter
--- OUTSIDE RECORDS SUMMARY | 2025-04-22 16:56 | XMS_ITS | Patient Health Record ---
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
--- OUTSIDE RECORDS SUMMARY | 2025-04-22 16:57 | XMS_ITS | Encounter Summary ---
Author Organization [facility] Address [address] [place] [address] Care Team Providers Care Technical Sales Director Name Role Phone Jose Bowers MD Primary Care Provider Unavailab le Encounter Details Date Type Department Care Team (Late st Contact Info) Description 02/14/2006 Outpatient Historical [facility] [place] [address] [place] [phone] Jose Bowers MD [address] [place] [address] Paraplegia (CMS/HCC) (Primary Dx) Social History Tobacco Use Types Packs/Day Years Used Date Smoking Tobacco: Never Assessed Comments Unknown Sex and Gender Information Value Date Recorded Sex Assigned at Not on file Legal Sex Female 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
--- OUTSIDE RECORDS SUMMARY | 2025-04-22 16:57 | XMS_ITS | Encounter Summary ---
Author Organization [facility] Address [address] [place] [address] Care Team Providers Care Gasoline Truck Crane Operator Name Role Phone Jose Bowers MD Primary Care Provider Unavailab le Encounter Details Date Type Department Care Team (Late st Contact Info) Description 04/15/2006 Outpatient Historical [facility]- [place] [address] [place] [phone] Jose Bowers MD [address] [place] [address] Paraplegia (CMS/HCC) (Primary Dx) Social History Tobacco Use Types Packs/Day Years Used Date Smoking Tobacco: Never Assessed Comments Unknown Sex and Gender Information Value Date Recorded Sex Assigned at Not on file Legal Sex Female 6:28 AM BATTERY ASSEMBLER PLASTIC Gender Identity Not on file Sexual Orientation Not on file documented as of this encounter Plan of Treatment Not on file documented as of this encounter Visit Diagnoses Diagnosis Paraplegia- Primary documented in this encounter Additional Health Concerns Infection Onset Date Last Indicated Resolved Time MRSA Comment:Kapil 10/26/15 10/27/2015 10/27/2015 documented as of this encounter Care Teams Gasoline Truck Crane Operator Relationship Specialty Start Date End Date Jose Bowers MD [address] [place] [address] PCP - General 12/31/05 documented as of this encounter
--- OUTSIDE RECORDS SUMMARY | 2025-04-22 16:57 | XMS_ITS | Encounter Summary ---
Author Organization [facility] Address [address] [place] [address] Care Team Providers Care Welcome Wagon Hostess Name Role Phone Jose Bowers MD Primary Care Provider Unavailab le Encounter Details Date Type Department Care Team (Latest Contact Info) Description 08/30/2006 Outpatient Historical [facility] [address] [place] [phone] Jose Bowers MD [address] [place] [phone] Pain in Joint, Pelvic Region and Thigh (Primary Dx) Social History Tobacco Use Types Packs/Day Years Used Date Smoking Tobacco: Never Assessed Comments Unknown Sex and Gender Information Value Date Recorded Sex Assigned at Not on file Legal Sex Female 6:28 AM OPERATIONS STAFF SPECIALIST SECURITY Gender Identity Not on file Sexual Orientation Not on file documented as of this encounter Plan of Treatment Not on file documented as of this encounter Procedures Procedure Name Priority Date/Time Associated Diagnosis Comments CBC WITH DIFFERENTIAL Routine 08/30/2006 12:42 PM OPERATIONS STAFF SPECIALIST SECURITY SEDIMENTATION RATE Routine 08/30/2006 12 :42 PM OPERATIONS STAFF SPECIALIST SECURITY CK Routine 08/30/2006 12:42 PM OPERATIONS STAFF SPECIALIST SECURITY documented in this encounter Results * (ABNORMAL) CK (08/30/2006 12:42 PM OPERATIONS STAFF SPECIALIST SECURITY) CK 201(H) 26 - 140 U/L INTERFACE SYSTEM Comment: As of 05 the [facility] has changed testing methods. The new reference ranges are Males 38-174 Females 26-140 The old referance ranges were Males 0-155 Females 0-133 08/30/2006 12:4 2 PM OPERATIONS STAFF SPECIALIST SECURITY Jose Bowers MD CHEMISTRY ORDERABLES Edited Performing Organization Address City/[facility] Co de Phone Number INTERFACE SYSTEM Refer to clinic/hospital department * (ABNORMAL) CBC WITH DIFFERENTIAL (08/30/2006 12:42 PM OPERATIONS STAFF SPECIALIST SECURITY) WBC 5.1 4.5 - 11.0 K/ul INTERFACE [...] K/ul INTERFACE SYSTEM 08/30/2006 12:4 2 PM OPERATIONS STAFF SPECIALIST SECURITY Jose Bowers MD HEMATOLOGY ORDERABLES Edited Performing Organization Address City/[facility] Co de Phone Number INTERFACE SYSTEM Refer to clinic/hospital department * (ABNORMAL) SEDIMENTATION RATE (08/30/2006 12:42 PM OPERATIONS STAFF SPECIALIST SECURITY) ESR (SEDIMENTATION RATE) 27(H) 0 - 22 mm/hr INTERFACE SYSTEM 08/30/2006 12:4 2 PM OPERATIONS STAFF SPECIALIST SECURITY Jose Bowers MD HEMATOLOGY ORDERABLES Edited INTERFACE SYSTEM Refer to clinic/hospital department documented in this encounter Visit Diagnoses Diagnosis Pain in joint, pelvic region and thigh- Primary documented in this encounter Additional Health Concerns Infection Onset Date Last Indicated Resolved Time MRSA Comment:Kapil 10/26/15 10/27/2015 10/27/2015 documented as of this encounter Care Teams Welcome Wagon Hostess Relationship Specialty Start Date End Date Jose Bowers MD [address] [place] [id number] PCP - General 12/31/05 documented as of this encounter
--- OUTSIDE RECORDS SUMMARY | 2025-04-22 16:57 | XMS_ITS | Encounter Summary ---
Author Organization [facility] Address [address] [place] [address] Care Team Providers Care Renewable Energy Broker Name Role Phone Jose Bowers MD Primary Care Provider Unavailab le Encounter Details Date Type Department Care Team (Late st Contact Info) Description 10/01/2005 Outpatient Historical [facility]- [place] [address] [place] [phone] Jose Bowers MD [address] [place] [address] Paraplegia (CMS/HCC) (Primary Dx); Neurogenic Bladder, NOS Social History Tobacco Use Types Packs/Day Years Used Date Smoking Tobacco: Never Assessed Comments Unknown Sex and Gender Information Value Date Recorded Sex Assigned at Not on file Legal Sex Female 6:28 AM FINANCIAL EXAMINER Gender Identity Not on file Sexual Orientation Not on file documented as of this encounter Plan of Treatment Not on file documented as of this encounter Visit Diagnoses Diagnosis Paraplegia- Primary Neurogenic bladder, NOS documented in this encounter Additional Health Concerns Infection Onset Date Last Indicated Resolved Time MRSA Comment:Kapil 10/26/15 10/27/2015 10/27/2015 documented as of this encounter Care Teams Renewable Energy Broker Relationship Specialty Start Date End Date Jose Bowers MD [address] [place] [address] PCP - General 12/31/05 documented as of this encounter
--- OUTSIDE RECORDS SUMMARY | 2025-04-22 16:57 | XMS_ITS | Encounter Summary ---
Author Organization [facility] Address [address] [place] [address] Care Team Providers Care Clinical Appeals Specialist Name Role Phone Jose Bowers MD Primary Care Provider Unavailab le Encounter Details Date Type Department Care Team (Latest Contact Info) Description 07/24/2006 Outpatient Historical [facility] [address] 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
--- OUTSIDE RECORDS SUMMARY | 2025-04-22 16:57 | XMS_ITS | Encounter Summary ---
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 Gender Identity Not on file Sexual [...] [facility] Venous blood specimen (specimen) 04/08/2008 4:10 PM CDT 04/09/2008 7:42 AM CDT Riky Mejía MD POINT OF CARE TESTING Final Result Performing Organization Address City/State/[facility] Co de Phone Number INTERFACE SYSTEM Refer to clinic/hospital department [facility] CLIA# [id number] [facility] [place] [address] * (ABNORMAL) POC GLUCOSE (04/08/2008 11:00 AM CDT) GLUCOSE POC 122(H) 60 - 100 mg/dL [facility] Venous blood specimen (specimen) 04/08/2008 11:00 AM CDT 04/09/2008 7:42 AM CDT us Riky Mejía MD POINT OF CARE TESTING Final Result Performing Organization Address [facility] de Phone Number INTERFACE SYSTEM Refer to clinic/hospital department [facility] CLIA# [id number] [address] [place] [address] * (ABNORMAL) POC GLUCOSE (04/08/2008 5:12 AM CDT) GLUCOSE POC 124(H) 60 - 100 mg/dL [facility] Venous blood specimen (specimen) 04/08/2008 5:12 AM CDT 04/08/2008 7:16 AM CDT Riky Mejía MD POINT OF CARE TESTING Final Result Performing Organization Address [facility] de Phone Number INTERFACE SYSTEM Refer to clinic/hospital department [facility] CLIA# [id number] [address] [place] [address] * (ABNORMAL) BASIC METABOLIC PANEL (04/08/2008 4:30 AM CDT) POTASSIUM 4.2 3.5 - 5.0 mEq/L [facility] OSMOLALITY, CALCULATED 284 275 - 295 mOsm/Kg [facility] CREATININE 0.5(L) 0.7 - 1.2 mg/dL [facility] CALCIUM 8.4 8.4 - 10.5 mg/dL [facility] GLUCOSE 141(H) 70 - 110 mg/dL [facility] CHLORIDE 102 95 - 110 mEq/L [facility] ANION GAP 9 9 - 20 mEq/L [facility] SODIUM 137 136 - 145 mEq/L [facility] BUN 11 7 - 17 mg/dL [facility] CO2 30 22 - 32 mmol/l [facility] Blood specimen (specimen) 04/08/2008 4:30 AM CDT 04/08/2008 4:30 AM CDT Riky Mejía MD CHEMISTRY ORDERABLES Final Result INTERFACE SYSTEM Refer to clinic/hospital department [facility] CLIA# [id number] [facility] [place] [address] * (ABNORMAL) CBC WITH DIFFERENTIAL (04/08/2008 4:30 AM CDT) MCV 90.8 84.0 - 103.0 Fl [facility] BASOPHILS 0.2 0.0 - 1.0 % [facility] MPV 10.7 8.9 - 12.8 Fl [facility] BASOPHILS ABSOLUTE 0.0 0.0 - 0.2 K/ul [facility] HEMOGLOBIN 10.6(L) 12.0 - 16.0 g/dL [facility] MONOCYTES 8.0 2.0 - 10.0 % [facility] RDW 16.8(H) 11.0 - 14.5 % [facility] MONOCYTE ABSOLUTE 1.0(H) 0.1 - 0.6 K/ul [facility] WBC 12.7(H) 4.5 - 11.0 K/ul [facility] NEUTROPHILS 86.4(H) 42.2 - 75.2 % [facility] MCH 29.4 27.0 - 34.0 pg [facility] NEUTROPHIL ABSOLUTE 10.9(H) 2.0 - 8.0 K/ul [facility] HEMATOCRIT 32.7(L) 36.0 - 46.0 % [facility] PLATELETS 149 140 - 440 K/ul [facility] EOSINOPHIL ABSOLUTE 0.1 0.0 - 0.7 K/ul [facility] EOSINOPHILS 0.7 0.0 - 7.0 % [facility] RBC 3.60(L) 4.20 - 5.40 Mil/ul [facility] MCHC 32.4 30.0 - 35.0 g/dL [facility] LYMPHOCYTE ABSOLUTE 0.6(L) 1.2 - 4.0 K/ul [facility] LYMPHOCYTES 4.7(L) 24.0 - 44.0 % [facility] Blood specimen (specimen) 04/08/2008 4:30 AM CDT 04/08/2008 4:30 AM CDT us Riky Mejía MD HEMATOLOGY ORDERABLES Final Result Performing Organization Address [facility] de Phone Number INTERFACE SYSTEM Refer to clinic/hospital department [facility] CLIA# [id number] [facility] [place] [place] [address] * BLOOD CULTURE (04/07/2008 9:56 PM CDT) FINAL REPORT No growth INTERFA CE SYSTEM Blood specimen (specimen) 04/07/2008 9:56 PM CDT 04/07/2008 9:56 PM CDT us Riky Mejía MD MICROBIOLOGY - GENERAL [place] ATKINSON Final Result Performing Organization Address [facility] de Phone Number INTERFACE SYSTEM Refer to clinic/hospital department * BLOOD CULTURE (04/07/2008 9:56 PM CDT) FINAL REPORT No growth INTERFA CE SYSTEM Blood specimen (specimen) 04/07/2008 9:56 PM CDT 04/07/2008 9:56 PM CDT us Riky Mejía MD MICROBIOLOGY - GENERAL [place] ATKINSON Final Result Performing Organization Address [facility] de Phone Number INTERFACE SYSTEM Refer to clinic/hospital department * (ABNORMAL) POC GLUCOSE (04/07/2008 8:36 PM CDT) GLUCOSE POC 159(H) 60 - 100 mg/dL [facility] Venous blood specimen (specimen) 04/07/2008 8:36 PM CDT 04/08/2008 7:22 AM CDT us Riky Mejía MD POINT OF CARE TESTING Final Result Performing Organization Address City/[facility] de Phone Number INTERFACE SYSTEM Refer to clinic/hospital department [facility] CLIA# [id number] [address] [place] [address] * (ABNORMAL) POC GLUCOSE (04/07/2008 5:39 PM CDT) GLUCOSE POC 122(H) 60 - 100 mg/dL [facility] Venous blood specimen (specimen) 04/07/2008 5:39 PM CDT 04/08/2008 7:16 AM CDT Riky Mejía MD POINT OF CARE TESTING Final Result Performing Organization Address [facility] de Phone Number INTERFACE SYSTEM Refer to clinic/hospital department [facility] CLIA# [id number] [address] [place] [address] * (ABNORMAL) POC ISTAT EG 7+ (04/07/2008 4:27 PM CDT) FIO2 4 [facility] PO2 67(L) 80 - 105 mmHg [facility] CALCIUM IONIZED 1.15 1.12 - 1.32 mmol/l [facility] HEMATOCRIT ABG 32(L) 38 - 51 % [facility] PCO2 POC 45 35 - 45 mmHg [facility] SODIUM 137(L) 138 - 146 mEq/L [facility] BASE EXCESS 7(H) -2 - 3 mmol/l [facility] PH 7.45 7.35 - 7.45 Unit [facility] O2 SATURATION 94(L) 95 - 98 % [facility] PO2 TEMP CORRECT 67(L) 80 - 105 mmHg [facility] SPECIMEN TYPE Arterial [facility] Comment: Test Performed By [id number] Pulse OX: 99 Hemoglobin calculated from Hematocrit result PCO2 TEMP CORRECT 45 35 - 45 mmHg [facility] HEMOGLOBIN POC 10.9 +/-3 g/dL 12.0 - 16.0 g/dL [facility] POTASSIUM 4.0 3.5 - 4.9 mEq/L [facility] PH TEMP CORRECT 7.45 7.35 - 7.45 Unit [facility] HCO3 (CALC) POC 31.1(H) 22.0 - 26.0 mmol/l [facility] TCO2 (CALC) POC 32(H) 23 - 27 mmol/l [facility] Arterial blood specimen (specimen) 04/07/2008 4:27 PM CDT 04/07/2008 4:30 PM CDT Riky Mejía MD POINT OF CARE TESTING COM F inal Result Performing Organization Address [facility] de Phone Number INTERFACE SYSTEM Refer to clinic/hospital department [facility] CLIA# [id number] [address] [place] [address] * (ABNORMAL) POC GLUCOSE (04/07/2008 11:30 AM CDT) GLUCOSE POC 108(H) 60 - 100 mg/dL [facility] Venous blood specimen (specimen) 04/07/2008 11:30 AM CDT 04/08/2008 7:16 AM CDT Riky Mejía MD POINT OF CARE TESTING Final Result Performing Organization Address [facility] de Phone Number INTERFACE SYSTEM Refer to clinic/hospital department [facility] CLIA# [id number] [address] [place] [address] * (ABNORMAL) POC GLUCOSE (04/07/2008 5:02 AM CDT) GLUCOSE POC 138(H) 60 - 100 mg/dL [facility] Venous blood specimen (specimen) 04/07/2008 5:02 AM CDT 04/07/2008 7:10 AM CDT Riky Mejía MD POINT OF CARE TESTING Final Result INTERFACE SYSTEM Refer to clinic/hospital department [facility] CLIA# [id number] [address] [place] [address] * (ABNORMAL) CBC WITH DIFFERENTIAL (04/07/2008 3:13 AM CDT) HEMATOCRIT 30.3(L) 36.0 - 46.0 % [facility] EOSINOPHILS 1.6 0.0 - 7.0 % [facility] PLATELETS 140 140 - 440 K/ul [facility] PERIPHERAL BLOOD SMEAR REVIEW Automated Diff [facility] EOSINOPHIL ABSOLUTE 0.2 0.0 - 0.7 K/ul [facility] RBC 3.33(L) 4.20 - 5.40 Mil/ul [facility] LYMPHOCYTES 6.7(L) 24.0 - 44.0 % [facility] MCHC 32.3 30.0 - 35.0 g/dL [facility] LYMPHOCYTE ABSOLUTE 0.8(L) 1.2 - 4.0 K/ul [facility] MCV 91.0 84.0 - 103.0 Fl [facility] MPV 11.6 8.9 - 12.8 Fl [facility] BASOPHILS ABSOLUTE 0.0 0.0 - 0.2 K/ul [facility] BASOPHILS 0.2 0.0 - 1.0 % [facility] HEMOGLOBIN 9.8(L) 12.0 - 16.0 g/dL [facility] RDW 16.9(H) 11.0 - 14.5 % [facility] MONOCYTE ABSOLUTE 1.1(H) 0.1 - 0.6 K/ul [facility] MONOCYTES 9.4 2.0 - 10.0 % [facility] WBC 11.7(H) 4.5 - 11.0 K/ul [facility] MCH 29.4 27.0 - 34.0 pg [facility] NEUTROPHIL ABSOLUTE 9.6(H) 2.0 - 8.0 K/ul [facility] NEUTROPHILS 82.1(H) 42.2 - 75.2 % [facility] Blood specimen (specimen) 04/07/2008 3:13 AM CDT 04/07/2008 3:19 AM CDT us Riky Mejía MD HEMATOLOGY ORDERABLES Final Result Performing Organization Address City/[facility] Phone Number INTERFACE SYSTEM Refer to clinic/hospital department [facility] CLIA# [id number] [address] [place] [address] * (ABNORMAL) BASIC METABOLIC PANEL (04/07/2008 3:13 AM CDT) [facility] OSMOLALITY, CALCULATED 291 275 - 295 mOsm/Kg [facility] POTASSIUM 4.1 3.5 - 5.0 mEq/L [facility] CREATININE 0.6(L) 0.7 - 1.2 mg/dL [facility] CALCIUM 8.6 8.4 - 10.5 mg/dL [facility] GLUCOSE 141(H) 70 - 110 mg/dL [facility] CHLORIDE 105 95 - 110 mEq/L [facility] SODIUM 140 136 - 145 mEq/L [facility] ANION GAP 7(L) 9 - 20 mEq/L [facility] BUN 14 7 - 17 mg/dL [facility] CO2 32 22 - 32 mmol/l [facility] Blood specimen (specimen) 04/07/2008 3:13 AM CDT 04/07/2008 3:19 AM CDT us Riky Mejía MD CHEMISTRY ORDERABLES Final Result Performing Organization Address [facility] de Phone Number INTERFACE SYSTEM Refer to clinic/hospital department [facility] CLIA# [id number] [address] [place] [address] * (ABNORMAL) POC GLUCOSE (04/06/2008 8:09 PM CDT) [facility] GLUCOSE POC 118(H) 60 - 100 mg/dL [facility] Venous blood specimen (specimen) 04/06/2008 8:09 PM CDT 04/07/2008 7:13 AM CDT Riky Mejía MD POINT OF CARE TESTING Final Result Performing Organization Address [facility] Phone Number INTERFACE SYSTEM Refer to clinic/hospital department [facility] CLIA# [id number] [address] [place] [address] * (ABNORMAL) POC GLUCOSE (04/06/2008 5:03 PM CDT) GLUCOSE POC 131(H) 60 - 100 mg/dL [facility] Venous blood specimen (specimen) 04/06/2008 5:03 PM CDT 04/07/2008 7:10 AM CDT Riky Mejía MD POINT OF CARE TESTING Final Result Performing Organization Address [facility] Phone Number INTERFACE SYSTEM Refer to clinic/hospital department [facility] CLIA# [id number] [address] [place] [address] * (ABNORMAL) POC GLUCOSE (04/06/2008 10:59 AM CDT) GLUCOSE POC 128(H) 60 - 100 mg/dL [facility] Venous blood specimen (specimen) 04/06/2008 10:59 AM CDT 04/07/2008 7:10 AM CDT Riky Mejía MD POINT OF CARE TESTING Final Result Performing Organization Address [facility] de Phone Number INTERFACE SYSTEM Refer to clinic/hospital department [facility] CLIA# [id number] [address] [place] [address] * XR CHEST PA OR AP (04/06/2008 [...] GLUCOSE POC 126(H) 60 - 100 mg/dL [facility] Venous blood specimen (specimen) 04/06/2008 6:02 AM CDT 04/06/2008 7:01 AM CDT Riky Mejía MD POINT OF CARE TESTING Final Result INTERFACE SYSTEM Refer to clinic/hospital department [facility] CLIA# [id number] [address] [place] [address] * (ABNORMAL) CBC WITH DIFFERENTIAL (04/06/2008 3:55 AM CDT) NEUTROPHILS 81.1(H) 42.2 - 75.2 % [facility] MCH 29.1 27.0 - 34.0 pg [facility] NEUTROPHIL ABSOLUTE 8.9(H) 2.0 - 8.0 K/ul [facility] HEMATOCRIT 31.3(L) 36.0 - 46.0 % [facility] PLATELETS 122(L) 140 - 440 K/ul [facility] EOSINOPHIL ABSOLUTE 0.3 0.0 - 0.7 K/ul [facility] EOSINOPHILS 3.1 0.0 - 7.0 % [facility] RBC 3.47(L) 4.20 - 5.40 Mil/ul [facility] MCHC 32.3 30.0 - 35.0 g/dL [facility] LYMPHOCYTE ABSOLUTE 0.9(L) 1.2 - 4.0 K/ul [facility] LYMPHOCYTES 8.4(L) 24.0 - 44.0 % [facility] MCV 90.2 84.0 - 103.0 Fl [facility] BASOPHILS 0.2 0.0 - 1.0 % [facility] MPV 11.8 8.9 - 12.8 Fl [facility] BASOPHILS ABSOLUTE 0.0 0.0 - 0.2 K/ul [facility] HEMOGLOBIN 10.1(L) 12.0 - 16.0 g/dL [facility] MONOCYTES 7.2 2.0 - 10.0 % [facility] RDW 17.0(H) 11.0 - 14.5 % [facility] MONOCYTE ABSOLUTE 0.8(H) 0.1 - 0.6 K/ul [facility] WBC 11.0 4.5 - 11.0 K/ul [facility] Blood specimen (specimen) 04/06/2008 3:55 AM CDT 04/06/2008 4:00 AM CDT Marquis Scott MD HEMATOLOGY ORDERABLES Final Res ult INTERFACE SYSTEM Refer to clinic/hospital department [facility] CLIA# [id number] [facility] [place] [address] * (ABNORMAL) RENAL FUNCTION PANEL (04/06/2008 3:55 AM CDT) GLUCOSE 218(H) 70 - 110 mg/dL [facility] OSMOLALITY, CALCULATED 295 275 - 295 mOsm/Kg [facility] CHLORIDE 106 95 - 110 mEq/L [facility] ALBUMIN 3.0(L) 3.5 - 5.0 g/dL [facility] SODIUM 138 136 - 145 mEq/L [facility] BUN 22(H) 7 - 17 mg/dL [facility] CO2 30 22 - 32 mmol/l [facility] PHOSPHORUS 2.0(L) 2.5 - 4.6 mg/dL [facility] POTASSIUM 4.7 3.5 - 5.0 mEq/L [facility] ANION GAP 7(L) 9 - 20 mEq/L [facility] CREATININE 0.6(L) 0.7 - 1.2 mg/dL [facility] CALCIUM 8.2(L) 8.4 - 10.5 mg/dL [facility] Blood specimen (specimen) 04/06/2008 3:55 AM CDT 04/06/2008 4:00 AM CDT Marquis Scott MD CHEMISTRY ORDERABLES Final Resu lt Performing Organization Address [facility] Co de Phone Number INTERFACE SYSTEM Refer to clinic/hospital department [facility] CLIA# [id number] [address] [place] [address] * (ABNORMAL) POC GLUCOSE (04/05/2008 8:20 PM CDT) GLUCOSE POC 114(H) 60 - 100 mg/dL [facility] Venous blood specimen (specimen) 04/05/2008 8:20 PM CDT 04/06/2008 7:01 AM CDT Riky Mejía MD POINT OF CARE TESTING Final Result Performing Organization Address [facility] Phone Number INTERFACE SYSTEM Refer to clinic/hospital department [facility] CLIA# [id number] [address] [place] [address] * (ABNORMAL) POC GLUCOSE (04/05/2008 4:50 PM CDT) GLUCOSE POC 118(H) 60 - 100 mg/dL [facility] Venous blood specimen (specimen) 04/05/2008 4:50 PM CDT 04/06/2008 7:01 AM CDT us Riky Mejía MD POINT OF CARE TESTING Final Result Performing Organization Address [facility] Phone Number INTERFACE SYSTEM Refer to clinic/hospital department [facility] CLIA# [id number] [address] [place] [address] * IV CATHETER CULTURE (04/05/2008 4:00 PM CDT) FINAL REPORT No growth INTERFA CE SYSTEM 04/05/2008 4:00 PM CDT 04/05/2008 4:00 PM CDT Riky Mejía MD MICROBIOLOGY - GENERAL [place] ATKINSON Final Result Performing Organization Address [facility] Phone Number INTERFACE SYSTEM [...] GLUCOSE POC 120(H) 60 - 100 mg/dL [facility] Venous blood specimen (specimen) 04/05/2008 11:06 AM CDT 04/06/2008 7:01 AM CDT Riky Mejía MD POINT OF CARE TESTING Final Result INTERFACE SYSTEM Refer to clinic/hospital department [facility] CLIA# [id number] [address] [place] [address] * (ABNORMAL) POC GLUCOSE (04/05/2008 7:26 AM CDT) GLUCOSE POC 120(H) 60 - 100 mg/dL [facility] Venous blood specimen (specimen) 04/05/2008 7:26 AM CDT 04/06/2008 7:01 AM CDT Riky Mejía MD POINT OF CARE TESTING Final Result INTERFACE SYSTEM Refer to clinic/hospital department [facility] CLIA# [id number] [address] [place] [address] * PT AND APTT (04/05/2008 3:04 AM CDT) PTT 24.1 22.5 - 36.5 Secs [facility] Comment: Therapeutic Range: Hi-level PE/DVT heparin protocol 80.1 -95.0 sec Lo-level PE/DVT heparin protocol 67.1 - 80.0 sec Cardiac Heparin Protocol 67.1 - 85.0 sec Neuro Heparin Protocol 67.1 - 80.0 sec As of 09/25/2007 note change in APTT Normal Range. PROTIME 14.8 12.8 - 15.8 Secs [facility] Comment:As of 2007 not e change in normal range. INR 1.0 [facility] Comment: Expected Values for INR: DVT/PE Goal INR 2.5; range 2.0 - 3.0 Valve Replacement Tissue Goal INR 2.5; range 2.0 - 3.0 Mechanical Goal INR 3.0; range 2.5 - 3.5 POST-PA Goal INR 2.5; range 2.0 - 3.0 or Goal 3.0; range 2.5 - 3.5 Atrial Fibrillation Goal INR 2.5; range 2.0 - 3.0 Ischemic Stroke Goal INR 2.5; range 2.0 - 3.0 For additional information see Guidelines for Anticoagulation available from the pharmacy [facility] [phone] Blood specimen (specimen) 04/05/2008 3:04 AM CDT 04/05/2008 3:08 AM CDT Riky Mejía MD HEMATOLOGY ORDERABLES Edite d Performing Organization Address [facility] Phone Number INTERFACE SYSTEM Refer to clinic/hospital department [facility] CLIA# [id number] [address] [place] [address] * MAGNESIUM LEVEL (04/05/2008 3:04 AM CDT) MAGNESIUM 2.1 1.7 - 2.4 mg/dL [facility] Blood specimen (specimen) 04/05/2008 3:04 AM CDT 04/05/2008 3:08 AM CDT us Riky Mejía MD CHEMISTRY ORDERABLES Final Result Performing Organization Address [facility] Phone Number INTERFACE SYSTEM Refer to clinic/hospital department [facility] CLIA# [id number] [address] [place] [address] * (ABNORMAL) PHOSPHORUS (04/05/2008 3:04 AM CDT) PHOSPHORUS 1.7(L) 2.5 - 4.6 mg/dL [facility] Blood specimen (specimen) 04/05/2008 3:04 AM CDT 04/05/2008 3:08 AM CDT Riky Mejía MD CHEMISTRY ORDERABLES Final Result Performing Organization Address [facility] Phone Number INTERFACE SYSTEM Refer to clinic/hospital department [facility] CLIA# [id number] [address] [place] [address] * (ABNORMAL) BASIC METABOLIC PANEL (04/05/2008 3:04 AM CDT) CO2 30 22 - 32 mmol/l [facility] OSMOLALITY, CALCULATED 307(H) 275 - 295 mOsm/Kg [facility] POTASSIUM 3.9 3.5 - 5.0 mEq/L [facility] CREATININE 0.7 0.7 - 1.2 mg/dL [facility] CALCIUM 8.2(L) 8.4 - 10.5 mg/dL [facility] GLUCOSE 126(H) 70 - 110 mg/dL [facility] CHLORIDE 112(H) 95 - 110 mEq/L [facility] SODIUM 146(H) 136 - 145 mEq/L [facility] ANION GAP 8(L) 9 - 20 mEq/L [facility] BUN 32(H) 7 - 17 mg/dL [facility] Blood specimen (specimen) 04/05/2008 3:04 AM CDT 04/05/2008 3:08 AM CDT us Riky Mejía MD CHEMISTRY ORDERABLES Final Result Performing Organization Address City/State/[facility] Co de Phone Number INTERFACE SYSTEM Refer to clinic/hospital department [facility] CLIA# [id number] [address] [place] [address] * (ABNORMAL) CBC WITH DIFFERENTIAL (04/05/2008 3:04 AM CDT) EOSINOPHIL ABSOLUTE 0.2 0.0 - 0.7 K/ul [facility] EOSINOPHILS 2.2 0.0 - 7.0 % [facility] PERIPHERAL BLOOD SMEAR REVIEW Automated Diff [facility] RBC 3.51(L) 4.20 - 5.40 Mil/ul [facility] MCHC 33.2 30.0 - 35.0 g/dL [facility] LYMPHOCYTE ABSOLUTE 1.1(L) 1.2 - 4.0 K/ul [facility] LYMPHOCYTES 9.6(L) 24.0 - 44.0 % [facility] MCV 88.3 84.0 - 103.0 Fl [facility] BASOPHILS 0.1 0.0 - 1.0 % [facility] MPV 11.0 8.9 - 12.8 Fl [facility] BASOPHILS ABSOLUTE 0.0 0.0 - 0.2 K/ul [facility] HEMOGLOBIN 10.3(L) 12.0 - 16.0 g/dL [facility] MONOCYTES 8.4 2.0 - 10.0 % [facility] RDW 17.1(H) 11.0 - 14.5 % [facility] MONOCYTE ABSOLUTE 0.9(H) 0.1 - 0.6 K/ul [facility] WBC 10.9 4.5 - 11.0 K/ul [facility] NEUTROPHILS 79.7(H) 42.2 - 75.2 % [facility] MCH 29.3 27.0 - 34.0 pg [facility] NEUTROPHIL ABSOLUTE 8.7(H) 2.0 - 8.0 K/ul [facility] HEMATOCRIT 31.0(L) 36.0 - 46.0 % [facility] PLATELETS 91(L) 140 - 440 K/ul [facility] Blood specimen (specimen) 04/05/2008 3:04 AM CDT 04/05/2008 3:08 AM CDT Riky Mejía MD HEMATOLOGY ORDERABLES Final Result Performing Organization Address City/State/[facility] Co de Phone Number INTERFACE SYSTEM Refer to clinic/hospital department [facility] CLIA# [id number] [address] [place] [id number] * (ABNORMAL) RENAL FUNCTION PANEL (04/04/2008 5:04 PM CDT) ANION GAP 8(L) 9 - 20 mEq/L [facility] PHOSPHORUS 1.9(L) 2.5 - 4.6 mg/dL [facility] ALBUMIN 2.9(L) 3.5 - 5.0 g/dL [facility] CHLORIDE 117(H) 95 - 110 mEq/L [facility] CREATININE 1.2 0.7 - 1.2 mg/dL [facility] SODIUM 147(H) 136 - 145 mEq/L [facility] GLUCOSE 124(H) 70 - 110 mg/dL [facility] CO2 26 22 - 32 mmol/l [facility] CALCIUM 7.5(L) 8.4 - 10.5 mg/dL [facility] POTASSIUM 3.5 3.5 - 5.0 mEq/L [facility] OSMOLALITY, CALCULATED 309(H) 275 - 295 mOsm/Kg [facility] BUN 34(H) 7 - 17 mg/dL [facility] Blood specimen (specimen) 04/04/2008 5:04 PM CDT 04/04/2008 5:06 PM CDT us Riky Mejía MD CHEMISTRY ORDERABLES Edited INTERFACE SYSTEM Refer to clinic/hospital department [facility] CLIA# [id number] [address] [place] [phone] * (ABNORMAL) CBC WITH DIFFERENTIAL (04/04/2008 5:04 PM CDT) HEMOGLOBIN 9.6(L) 12.0 - 16.0 g/dL [facility] RDW 16.8(H) 11.0 - 14.5 % [facility] MONOCYTE ABSOLUTE 0.9(H) 0.1 - 0.6 K/ul [facility] MONOCYTES 10.0 2.0 - 10.0 % [facility] WBC 9.4 4.5 - 11.0 K/ul [facility] MCH 29.0 27.0 - 34.0 pg [facility] NEUTROPHIL ABSOLUTE 7.3 2.0 - 8.0 K/ul [facility] NEUTROPHILS 77.7(H) 42.2 - 75.2 % [facility] HEMATOCRIT 28.9(L) 36.0 - 46.0 % [facility] EOSINOPHILS 1.1 0.0 - 7.0 % [facility] PLATELETS 83(L) 140 - 440 K/ul [facility] PERIPHERAL BLOOD SMEAR REVIEW Automated Diff [facility] EOSINOPHIL ABSOLUTE 0.1 0.0 - 0.7 K/ul [facility] RBC 3.31(L) 4.20 - 5.40 Mil/ul [facility] LYMPHOCYTES 11.1(L) 24.0 - 44.0 % [facility] MCHC 33.2 30.0 - 35.0 g/dL [facility] LYMPHOCYTE ABSOLUTE 1.0(L) 1.2 - 4.0 K/ul [facility] MCV 87.3 84.0 - 103.0 Fl [facility] MPV 11.6 8.9 - 12.8 Fl [facility] BASOPHILS ABSOLUTE 0.0 0.0 - 0.2 K/ul [facility] BASOPHILS 0.1 0.0 - 1.0 % [facility] Blood specimen (specimen) 04/04/2008 5:04 PM CDT 04/04/2008 5:06 PM CDT us Riky Mejía MD HEMATOLOGY ORDERABLES Final Result Performing Organization Address City/State/[facility] Co de Phone Number INTERFACE SYSTEM Refer to clinic/hospital department [facility] CLIA# [id number] [facility] [place] [address] * (ABNORMAL) POC ISTAT EG 7+ (04/04/2008 9:15 AM CDT) SODIUM 145 138 - 146 mEq/L [facility] BASE EXCESS 0 -2 - 3 mmol/l [facility] PH 7.39 7.35 - 7.45 Unit [facility] O2 SATURATION 94(L) 95 - 98 % [facility] PO2 TEMP CORRECT 70(L) 80 - 105 mmHg [facility] PCO2 TEMP CORRECT 42 35 - 45 mmHg [facility] HEMOGLOBIN POC 8.8 +/-3 g/dL 12.0 - 16.0 g/dL [facility] POTASSIUM 3.2(L) 3.5 - 4.9 mEq/L [facility] PH TEMP CORRECT 7.39 7.35 - 7.45 Unit [facility] HCO3 (CALC) POC 25.0 22.0 - 26.0 mmol/l [facility] TCO2 (CALC) POC 26 23 - 27 mmol/l [facility] SPECIMEN TYPE Arterial [facility] Comment: Test Performed By [id number] Pulse OX: 94 Hemoglobin calculated from Hematocrit result PO2 70(L) 80 - 105 mmHg [facility] CALCIUM IONIZED 1.12 1.12 - 1.32 mmol/l [facility] HEMATOCRIT ABG 26(L) 38 - 51 % [facility] PCO2 POC 42 35 - 45 mmHg [facility] Arterial blood specimen (specimen) 04/04/2008 9:15 AM CDT 04/04/2008 9:18 AM CDT Riky Mejía MD POINT OF CARE TESTING COM F inal Result Performing Organization Address [facility] de Phone Number INTERFACE SYSTEM Refer to clinic/hospital department [facility] CLIA# [id number] [address] [place] [address] * PTT (04/04/2008 4:19 AM CDT) PTT 26.4 22.5 - 36.5 Secs [facility] [...] HEMATOLOGY ORDERABLES Final Result Performing Organization Address City/[facility]/ZIP Co de Phone Number INTERFACE SYSTEM Refer to clinic/hospital department [facility] CLIA# [id number] [address] [place] [address] * PROTIME-INR (04/04/2008 4:19 AM CDT) PROTIME 15.2 12.8 - 15.8 Secs [facility] Comment:As of 2007 not e change in normal range. INR 1.1 [facility] Comment: Expected Values for INR: DVT/PE Goal INR 2.5; range 2.0 - 3.0 Valve Replacement Tissue Goal INR 2.5; range 2.0 - 3.0 Mechanical Goal INR 3.0; range 2.5 - 3.5 POST-PA Goal INR 2.5; range 2.0 - 3.0 or Goal 3.0; range 2.5 - 3.5 Atrial Fibrillation Goal INR 2.5; range 2.0 - 3.0 Ischemic Stroke Goal INR 2.5; range 2.0 - 3.0 For additional information see Guidelines for Anticoagulation available from the pharmacy Jolene Ramirez, Pharm D. [phone] Blood specimen (specimen) 04/04/2008 4:19 AM CDT 04/04/2008 4:23 AM CDT Riky Mejía MD HEMATOLOGY ORDERABLES Final Result Performing Organization Address [facility] Phone Number INTERFACE SYSTEM Refer to clinic/hospital department [facility] CLIA# [id number] [address] [place] [address] * (ABNORMAL) PHOSPHORUS (04/04/2008 4:19 AM CDT) PHOSPHORUS 1.9(L) 2.5 - 4.6 mg/dL [facility] Blood specimen (specimen) 04/04/2008 4:19 AM CDT 04/04/2008 4:23 AM CDT Riky Mejía MD CHEMISTRY ORDERABLES Final Result Performing Organization Address [facility] de Phone Number INTERFACE SYSTEM Refer to clinic/hospital department [facility] CLIA# [id number] [address] [place] [address] * MAGNESIUM LEVEL (04/04/2008 4:19 AM CDT) [facility] MAGNESIUM 1.8 1.7 - 2.4 mg/dL [facility] Blood specimen (specimen) 04/04/2008 4:19 AM CDT 04/04/2008 4:23 AM CDT Riky Mejía MD CHEMISTRY ORDERABLES Final Result Performing Organization Address [facility] de Phone Number INTERFACE SYSTEM Refer to clinic/hospital department [facility] CLIA# [id number] [address] [place] [address] * (ABNORMAL) COMPREHENSIVE METABOLIC PANEL (04/04/2008 4:19 AM CDT) [facility] ALBUMIN/GLOBULIN RATIO 1.4 1.0 - 2.3 [facility] POTASSIUM 3.3(L) 3.5 - 5.0 mEq/L [facility] ANION GAP 11 9 - 20 mEq/L [facility] ALBUMIN 3.0(L) 3.5 - 5.0 g/dL [facility] CREATININE 2.1(H) 0.7 - 1.2 mg/dL [facility] ALT 20 4 - 36 IU/L [facility] CALCIUM 8.3(L) 8.4 - 10.5 mg/dL [facility] GLUCOSE 124(H) 70 - 110 mg/dL [facility] ALKALINE PHOSPHATASE 42 25 - 100 U/L [facility] CHLORIDE 111(H) 95 - 110 mEq/L [facility] OSMOLALITY, CALCULATED 310(H) 275 - 295 mOsm/Kg [facility] GLOBULIN (CALC) 2.2(L) 2.4 - 3.9 g/dL [facility] TOTAL PROTEIN 5.2(L) 6.3 - 8.2 g/dL [facility] SODIUM 146(H) 136 - 145 mEq/L [facility] BILIRUBIN TOTAL 0.9 0.3 - 1.2 mg/dL [facility] CO2 27 22 - 32 mmol/l [facility] BUN 42(H) 7 - 17 mg/dL [facility] AST 104(H) 8 - 33 U/L [facility] Blood specimen (specimen) 04/04/2008 4:19 AM CDT 04/04/2008 4:23 AM CDT Riky Mejía MD CHEMISTRY ORDERABLES Final Result INTERFACE SYSTEM Refer to clinic/hospital department [facility] CLIA# [id number] [address] [place] [address] * (ABNORMAL) CBC WITH DIFFERENTIAL (04/04/2008 4:19 AM CDT) HEMATOCRIT 28.7(L) 36.0 - 46.0 % [facility] EOSINOPHILS 0.2 0.0 - 7.0 % [facility] PLATELETS 83(L) 140 - 440 K/ul [facility] PERIPHERAL BLOOD SMEAR REVIEW Automated Diff [facility] EOSINOPHIL ABSOLUTE 0.0 0.0 - 0.7 K/ul [facility] RBC 3.33(L) 4.20 - 5.40 Mil/ul [facility] LYMPHOCYTES 12.1(L) 24.0 - 44.0 % [facility] MCHC 33.4 30.0 - 35.0 g/dL [facility] LYMPHOCYTE ABSOLUTE 1.1(L) 1.2 - 4.0 K/ul [facility] MCV 86.2 84.0 - 103.0 Fl [facility] MPV 11.5 8.9 - 12.8 Fl [facility] BASOPHILS ABSOLUTE 0.0 0.0 - 0.2 K/ul [facility] BASOPHILS 0.2 0.0 - 1.0 % [facility] HEMOGLOBIN 9.6(L) 12.0 - 16.0 g/dL [facility] RDW 16.1(H) 11.0 - 14.5 % [facility] MONOCYTE ABSOLUTE 1.0(H) 0.1 - 0.6 K/ul [facility] MONOCYTES 10.5(H) 2.0 - 10.0 % [facility] WBC 9.0 4.5 - 11.0 K/ul [facility] MCH 28.8 27.0 - 34.0 pg [facility] NEUTROPHIL ABSOLUTE 6.9 2.0 - 8.0 K/ul [facility] NEUTROPHILS 77.0(H) 42.2 - 75.2 % [facility] Blood specimen (specimen) 04/04/2008 4:19 AM CDT 04/04/2008 4:23 AM CDT us Riky Mejía MD HEMATOLOGY ORDERABLES Final Result INTERFACE SYSTEM Refer to clinic/hospital department [facility] CLIA# [id number] [address] [place] [address] * (ABNORMAL) POC ISTAT EG 7+ (04/04/2008 4:07 AM CDT) POTASSIUM 3.1(L) 3.5 - 4.9 mEq/L [facility] PH TEMP CORRECT 7.45 7.35 - 7.45 Unit [facility] HCO3 (CALC) POC 24.5 22.0 - 26.0 mmol/l [facility] TCO2 (CALC) POC 26 23 - 27 mmol/l [facility] FIO2 50 [facility] PO2 138(H) 80 - 105 mmHg [facility] CALCIUM IONIZED 1.10(L) 1.12 - 1.32 mmol/l [facility] HEMATOCRIT ABG 25(L) 38 - 51 % [facility] PCO2 POC 35 35 - 45 mmHg [facility] SODIUM 143 138 - 146 mEq/L [facility] BASE EXCESS 1 -2 - 3 mmol/l [facility] PH 7.45 7.35 - 7.45 Unit [facility] O2 SATURATION 99(H) 95 - 98 % [facility] PO2 TEMP CORRECT 138(H) 80 - 105 mmHg [facility] SPECIMEN TYPE Arterial [facility] Comment: Test Performed By [id number] Tidal volume: 500 PEEP: 10 Rate: 14 Pulse OX: 100 Hemoglobin calculated from Hematocrit result PCO2 TEMP CORRECT 35 35 - 45 mmHg [facility] HEMOGLOBIN POC 8.5 +/-3 g/dL 12.0 - 16.0 g/dL [facility] Arterial blood specimen (specimen) 04/04/2008 4:07 AM CDT 04/04/2008 5:13 AM CDT us Riky Mejía MD POINT OF CARE TESTING COM F inal Result INTERFACE SYSTEM Refer to clinic/hospital department [facility] CLIA# [id number] [facility] [place] [address] * MRSA CULTURE (04/03/2008 9:03 PM CDT) FINAL REPORT Culture screen for MRSA negative INTERFACE SYSTEM 04/03/2008 9:03 PM CDT 04/03/2008 9:03 PM CDT us Riky Mejía MD MICROBIOLOGY - GENERAL [place] [facility] Final Result Performing Organization Address City/[facility] Hospital/ZIP Co de Phone Number INTERFACE SYSTEM [...] By: Heriberto Estrella M.D. Electronically Signed By: Hreiberto Estrella M.D. Date Signed: 04/04/08 Riky Mejía MD DIAGNOSTIC IMAGING ORDERABL ES Final Result * (ABNORMAL) POC ISTAT EG 7+ (04/03/2008 8:35 PM CDT) CALCIUM IONIZED 1.00(L) 1.12 - 1.32 mmol/l [facility] HEMATOCRIT ABG 24(L) 38 - 51 % [facility] PCO2 POC 36 35 - 45 mmHg [facility] SODIUM 144 138 - 146 mEq/L [facility] BASE EXCESS 0 -2 - 3 mmol/l [facility] PH 7.44 7.35 - 7.45 Unit [facility] O2 SATURATION 98 95 - 98 % [facility] PO2 TEMP CORRECT 101 80 - 105 mmHg [facility] SPECIMEN TYPE Arterial [facility] Comment: Test Performed By [id number] Tidal volume: 500 PEEP: 10 Rate: 16 Pulse OX: 96 Hemoglobin calculated from Hematocrit result PCO2 TEMP CORRECT 36 35 - 45 mmHg [facility] HEMOGLOBIN POC 8.2 +/-3 g/dL 12.0 - 16.0 g/dL [facility] POTASSIUM 3.2(L) 3.5 - 4.9 mEq/L [facility] PH TEMP CORRECT 7.44 7.35 - 7.45 Unit [facility] HCO3 (CALC) POC 23.9 22.0 - 26.0 mmol/l [facility] TCO2 (CALC) POC 25 23 - 27 mmol/l [facility] FIO2 60 [facility] PO2 101 80 - 105 mmHg [facility] Arterial blood specimen (specimen) 04/03/2008 8:35 PM CDT 04/03/2008 8:48 PM CDT Riky Mejía MD POINT OF CARE TESTING COM F inal Result Performing Organization Address [facility] de Phone Number INTERFACE SYSTEM Refer to clinic/hospital department [facility] CLIA# [id number] [address] [place] [address] * TYPE AND CROSSMATCH (04/03/2008 8:13 PM CDT) [facility] BLOOD BANK PRODUCT INTERFACE SYSTEM Blood specimen (specimen) 04/03/2008 8:13 PM CDT 04/03/2008 8:17 PM CDT Riky Mejía MD BLOOD BANK ORDERABLES Edite d Performing Organization Address [facility] Phone Number INTERFACE SYSTEM Refer to clinic/hospital department * (ABNORMAL) CBC WITH DIFFERENTIAL (04/03/2008 8:13 PM CDT) HEMATOCRIT 26.9(L) 36.0 - 46.0 % [facility] PLATELETS 102(L) 140 - 440 K/ul [facility] EOSINOPHIL ABSOLUTE 0.0 0.0 - 0.7 K/ul [facility] EOSINOPHILS 0.1 0.0 - 7.0 % [facility] RBC 3.13(L) 4.20 - 5.40 Mil/ul [facility] MCHC 33.8 30.0 - 35.0 g/dL [facility] LYMPHOCYTE ABSOLUTE 1.1(L) 1.2 - 4.0 K/ul [facility] LYMPHOCYTES 12.2(L) 24.0 - 44.0 % [facility] MCV 85.9 84.0 - 103.0 Fl [facility] BASOPHILS 0.1 0.0 - 1.0 % [facility] MPV 11.7 8.9 - 12.8 Fl [facility] BASOPHILS ABSOLUTE 0.0 0.0 - 0.2 K/ul [facility] HEMOGLOBIN 9.1(L) 12.0 - 16.0 g/dL [facility] MONOCYTES 11.9(H) 2.0 - 10.0 % [facility] RDW 16.2(H) 11.0 - 14.5 % [facility] MONOCYTE ABSOLUTE 1.1(H) 0.1 - 0.6 K/ul [facility] WBC 9.0 4.5 - 11.0 K/ul [facility] NEUTROPHILS 75.7(H) 42.2 - 75.2 % [facility] MCH 29.1 27.0 - 34.0 pg [facility] NEUTROPHIL ABSOLUTE 6.8 2.0 - 8.0 K/ul [facility] Blood specimen (specimen) 04/03/2008 8:13 PM CDT 04/03/2008 8:17 PM CDT us Riky Mejía MD HEMATOLOGY ORDERABLES Final Result INTERFACE SYSTEM Refer to clinic/hospital department [facility]# [id number] [address] [place] [address] * PTT (04/03/2008 8:13 PM CDT) PTT 28.1 22.5 - 36.5 Secs [facility] [...] HEMATOLOGY ORDERABLES Final Result Performing Organization Address [facility] Phone Number INTERFACE SYSTEM Refer to clinic/hospital department [facility] CLIA# [id number] [address] [place] [address] * (ABNORMAL) PROTIME-INR (04/03/2008 8:13 PM CDT) INR 1.2 [facility] Comment: Expected Values for INR: DVT/PE Goal INR 2.5; range 2.0 - 3.0 Valve Replacement Tissue Goal INR 2.5; range 2.0 - 3.0 Mechanical Goal INR 3.0; range 2.5 - 3.5 POST-PA Goal INR 2.5; range 2.0 - 3.0 or Goal 3.0; range 2.5 - 3.5 Atrial Fibrillation Goal INR 2.5; range 2.0 - 3.0 Ischemic Stroke Goal INR 2.5; range 2.0 - 3.0 For additional information see Guidelines for Anticoagulation available from the pharmacy Catrachito Pham [phone] PROTIME 16.3(H) 12.8 - 15.8 Secs [facility] Comment:As of 2007 not e change in normal range. Blood specimen (specimen) 04/03/2008 8:13 PM CDT 04/03/2008 8:17 PM CDT Riky Mejía MD HEMATOLOGY ORDERABLES Final Result Performing Organization Address [facility] de Phone Number INTERFACE SYSTEM Refer to clinic/hospital department [facility] CLIA# [id number] [address] [place] [address] * ANTIBODY SCREEN (04/03/2008 8:13 PM CDT) [facility] ANTIBODY SCREEN Negative [facility] Blood specimen (specimen) 04/03/2008 8:13 PM CDT 04/03/2008 8:17 PM CDT us Riky Mejía MD BLOOD BANK ORDERABLES Final Result Performing Organization Address [facility] de Phone Number INTERFACE SYSTEM Refer to clinic/hospital department [facility] CLIA# [id number] [address] [place] [address] * ABORH TYPING (04/03/2008 8:13 PM CDT) [facility] ABO/RH TYPE O Positive [facility] Blood specimen (specimen) 04/03/2008 8:13 PM CDT 04/03/2008 8:17 PM CDT us Riky Mejía MD BLOOD BANK ORDERABLES Final Result Performing Organization Address [facility] de Phone Number INTERFACE SYSTEM Refer to clinic/hospital department [facility] CLIA# [id number] [address] [place] [address] * (ABNORMAL) COMPREHENSIVE METABOLIC PANEL (04/03/2008 8:13 PM CDT) [facility] GLUCOSE 140(H) 70 - 110 mg/dL [facility] ALKALINE PHOSPHATASE 40 25 - 100 U/L [facility] CHLORIDE 112(H) 95 - 110 mEq/L [facility] AST 97(H) 8 - 33 U/L [facility] GLOBULIN (CALC) 1.9(L) 2.4 - 3.9 g/dL [facility] TOTAL PROTEIN 4.9(L) 6.3 - 8.2 g/dL [facility] SODIUM 146(H) 136 - 145 mEq/L [facility] ANION GAP 11 9 - 20 mEq/L [facility] CO2 26 22 - 32 mmol/l [facility] BUN 47(H) 7 - 17 mg/dL [facility] ALT 19 4 - 36 IU/L [facility] ALBUMIN/GLOBULIN RATIO 1.6 1.0 - 2.3 [facility] POTASSIUM 3.2(L) 3.5 - 5.0 mEq/L [facility] OSMOLALITY, CALCULATED 312(H) 275 - 295 mOsm/Kg [facility] ALBUMIN 3.0(L) 3.5 - 5.0 g/dL [facility] CREATININE 2.9(H) 0.7 - 1.2 mg/dL [facility] BILIRUBIN TOTAL 0.6 0.3 - 1.2 mg/dL [facility] CALCIUM 7.6(L) 8.4 - 10.5 mg/dL [facility] Blood specimen (specimen) 04/03/2008 8:13 PM CDT 04/03/2008 8:17 PM CDT Riky Mejía MD CHEMISTRY ORDERABLES Edited INTERFACE SYSTEM Refer to clinic/hospital department [facility] CLIA# [id number] [address] [place] [address] documented in this encounter Visit Diagnoses Not on filedocumented in this encounter Additional Health Concerns Infection Onset Date Last Indicated Resolved Time MRSA Comment:Kapil 10/26/15 10/27/2015 10/27/2015 documented as of this encounter Care Teams Fabrication Mig Welder Relationship Specialty Start Date End Date Jose Bowers MD [address] [place] [id number] PCP - General 12/31/05 documented as of this encounter
--- OUTSIDE RECORDS SUMMARY | 2025-04-22 16:57 | XMS_ITS | Encounter Summary ---
Author Organization [facility] Address [address] [place] [address] Care Team Providers Care Atmospheric Drier Tender Name Role Phone Jose Bowers MD Primary Care Provider Unavailab le Encounter Details Date Type Department Care Team (Late st Contact Info) Description 07/04/2004 Outpatient Historical [facility] Calvin Odonnell MD [address] [place] [address] [phone] Social History Tobacco Use Types Packs/Day Years Used Date Smoking Tobacco: Never Assessed Comments Unknown Sex and Gender Information Value Date Recorded Sex Assigned at Not on file Legal Sex Female 6:28 AM VOICE OVER ANNOUNCER Gender Identity Not on file Sexual Orientation Not on file documented as of this encounter Plan of Treatment Not on file documented as of this encounter Visit Diagnoses Not on filedocumented in this encounter Additional Health Concerns Infection Onset Date Last Indicated Resolved Time MRSA Comment:Kapil 10/26/15 10/27/2015 10/27/2015 documented as of this encounter Care Teams Atmospheric Drier Tender Relationship Specialty Start Date End Date Jose Bowers MD [address] [place] [address] PCP - General 12/31/05 documented as of this encounter
--- OUTSIDE RECORDS SUMMARY | 2025-04-22 16:57 | XMS_ITS | Encounter Summary ---
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 The new reference ranges are Males 38-174 Females 26-140 The old referance ranges were Males 0-155 Females 0-133 12/31/2005 12:4 8 PM CDT Jose Bowers MD CHEMISTRY ORDERABLES Final Resul t Performing Organization Address [facility] Phone Number INTERFACE SYSTEM Refer to clinic/hospital department * C-REACTIVE PROTEIN (12/31/2005 12:48 PM CDT) CRP 0.85 0.00 - 1.00 mg/dL INTERFACE SYSTEM 12/31/2005 12:4 8 PM CDT Jose Bowers MD CHEMISTRY ORDERABLES Final Resul t Performing Organization Address [facility] Phone Number INTERFACE SYSTEM Refer to clinic/hospital department * SEDIMENTATION RATE (12/31/2005 12:48 PM CDT) ESR (SEDIMENTATION RATE) 18 0 - 22 mm/hr INTERFACE SYSTEM 12/31/2005 12:4 8 PM CDT Jose Bowers MD HEMATOLOGY ORDERABLES Final Resu lt Performing Organization Address [facility] Phone Number INTERFACE SYSTEM [...] documented as of this encounter Care Teams Jumpbasting Collar Baster Relationship Specialty Start Date End Date Jose Bowers MD [address] [place] [id number] PCP - General 12/31/05 documented as of this encounter
--- OUTSIDE RECORDS SUMMARY | 2025-04-22 16:57 | XMS_ITS | Encounter Summary ---
Author Organization [facility] Address [address] [place] [address] Care Team Providers Care Sanitation Manager Name Role Phone Jose Bowers MD Primary Care Provider Unavailab le Encounter Details Date Type Department Care Team (Late st Contact Info) Description 01/30/2007 Outpatient Historical [facility] [address] [place] [id number] Jose Bowers MD [address] [place] [address] Paraplegia (CMS/HCC) (Primary Dx) Social History Tobacco Use Types Packs/Day Years Used Date Smoking Tobacco: Never Assessed Comments Unknown Sex and Gender Information Value Date Recorded Sex Assigned at Not on file 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
--- OUTSIDE RECORDS SUMMARY | 2025-04-22 16:57 | XMS_ITS | Encounter Summary ---
Author Organization [facility] Address [address] [place] [address] Care Team Providers Care Prehemmer Name Role Phone Jose Bowers MD Primary Care Provider Unavail le Encounter Details Date Type Department Care Team (Late st Contact Info) Description 11/26/2005 Inpatient Historical [facility] IN B[facility] Jose Bowers MD [address] [place] [address] Other Specified Rehabilitation Procedure (Primary Dx) Social History Tobacco Use Types Packs/Day Years Used Date Smoking Tobacco: Never Assessed Comments Unknown Sex and Gender Information Value Date Recorded Sex Assigned at Not on file Legal Sex Female 6:28 AM QUALITY ASSURANCE ASSOCIATE Gender Identity Not on file Sexual Orientation [...] ORDERABLES Final Resul t Performing Organization Address [facility] Phone Number INTERFACE SYSTEM Refer to clinic/hospital department * TSH (11/27/2005 6:09 AM CDT) TSH 1.073 0.350 - 5.500 uIU/ml INTERFACE SYSTEM Comment: As of 04 at 3:00 p.m. [facility] has changed the methodology for TSH, and with this change the reference range has changed from 0.49-4.67 to 0.35-5.5 uIU/ml. 11/27/2005 6:09 AM CDT Jose Bowers MD CHEMISTRY ORDERABLES Final Resul t Performing Organization Address [facility] Phone Number INTERFACE SYSTEM [...] ORDERABLES Final Resu lt Performing Organization Address City/[facility] Co de Phone Number INTERFACE SYSTEM Refer to clinic/hospital department * (ABNORMAL) C-REACTIVE PROTEIN (11/27/2005 6:09 AM CDT) CRP 1.19(H) 0.00 - 1.00 mg/dL INTERFACE SYSTEM 11/27/2005 6:09 AM CDT Jose Bowers MD CHEMISTRY ORDERABLES Final Resul t Performing Organization Address [place]/[facility] Co de Phone Number INTERFACE [...] INTERFACE SYSTEM Comment: As of 05 the [facility] has changed testing methods. The new reference range is 25-100 The old referance range was 38-126 AST 26 8 - 33 U/L INTERFACE SYSTEM Comment: As of 05 the [facility] has changed testing methods. The new reference range is 8-33 The old referance range was Males 17-59 Females 14-36 ALT 27 4 - 36 IU/L INTERFACE SYSTEM Comment: As of 05 the [facility] has changed testing methods. The new reference range is 4-36 The old referance range was Males 21-72 Females 9-52 BILIRUBIN TOTAL 0.2(L) 0.3 - 1.2 mg/dL INTERFACE SYSTEM Comment: As of 05 the [facility] has changed testing methods. The new reference range is 0.3-1.2 The old referance range was 0.2-1.4 11/27/2005 6:09 AM CDT Jose Bowers MD CHEMISTRY ORDERABLES Final Resul t Performing Organization Address [facility] Phone Number INTERFACE SYSTEM Refer to clinic/hospital department * (ABNORMAL) SEDIMENTATION RATE (11/27/2005 6:09 AM CDT) ESR (SEDIMENTATION RATE) 25(H) 0 - 22 mm/hr INTERFACE SYSTEM 11/27/2005 6:09 AM CDT Jose Bowers MD HEMATOLOGY ORDERABLES Final Resu lt Performing Organization Address [facility] Phone Number INTERFACE SYSTEM [...] lt Performing Organization Address [facility] de Phone Number [...] URINE ORDERABLES Final Result Performing Organization Address [facility] de Phone Number [...] URINE ORDERABLES Final Result Performing Organization Address [place] [...] off-axis. IMPRESSION: Limited study. Nonspecific findings present. [facility] D: [id number] Dictated By: Marcus Eng [...] documented as of this encounter Care Teams Prehemmer Relationship Specialty Start Date End Date Jose Bowers MD [address] [place] [id number] PCP - General 12/31/05 documented as of this encounter
--- OUTSIDE RECORDS SUMMARY | 2025-04-22 16:57 | XMS_ITS | Encounter Summary ---
Author Organization [facility] Address [address] [place] [address] Care Team Providers Care Roving Can Tender Name Role Phone Jose Bowers MD Primary Care Provider Unavailab le Encounter Details Date Type Department Care Team (Late st Contact Info) Description 11/01/2005 Outpatient Historical [facility] Physical Med and Re[facility]- [place] [address] [place] [phone] Jose Bowers MD [address] [place] [address] Unspecified Paralysis (CMS/HCC) (Primary Dx); Neurogenic Bladder, NOS Social History Tobacco Use Types Packs/Day Years Used Date Smoking Tobacco: Never Assessed Comments Unknown Sex and Gender Information Value Date Recorded Sex Assigned at Not on file Legal Sex Female 6:28 AM DENTAL FRONT OFFICE ASSISTANT Gender Identity Not on file Sexual Orientation Not on file documented as of this encounter Plan of Treatment Not on file documented as of this encounter Visit Diagnoses Diagnosis Paralysis, unspecified- Primary Neurogenic bladder, NOS documented in this encounter Additional Health Concerns Infection Onset Date Last Indicated Resolved Time MRSA Comment:Kapil 10/26/15 10/27/2015 10/27/2015 documented as of this encounter Care Teams Roving Can Tender Relationship Specialty Start Date End Date Jose Bowers MD [address] [place] [address] PCP - General 12/31/05 documented as of this encounter
--- OUTSIDE RECORDS SUMMARY | 2025-04-22 16:57 | XMS_ITS | Encounter Summary ---
Author Organization [facility] Address [address] [place] [address] Care Team Providers Care Bio Medical Technician Name Role Phone Jose Bowers MD Primary Care Provider Unavailab le Encounter Details Date Type Department Care Team (Late st Contact Info) Description 07/24/2006 Outpatient Historical [facility] Med and Re[facility]- [place] [address] [place] [phone] Jose Bowers MD [address] [place] [address] Paraplegia (CMS/HCC) (Primary Dx); Difficulty in Walking; Pain in Limb Social History Tobacco Use Types Packs/Day Years Used Date Smoking Tobacco: Never Assessed Comments Unknown Sex and Gender Information Value Date Recorded Sex Assigned at Not on file 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
--- OUTSIDE RECORDS SUMMARY | 2025-04-22 16:57 | XMS_ITS | Encounter Summary ---
Author Organization [facility] Address [address] [place] [address] Care Team Providers Care Paint Mixer Name Role Phone Jose Bowers MD Primary Care Provider Unavail le Encounter Details Date Type Department Care Team (Late st Contact Info) Description 12/31/2006 Outpatient Historical [facility] OUTPATIENT Jose Bowers MD [address] [place] [address] Pain in Soft Tissues of Limb (Primary Dx) Social History Tobacco Use Types Packs/Day Years Used Date Smoking Tobacco: Never Assessed Comments Unknown Sex and Gender Information Value Date Recorded Sex Assigned at Not on file Legal Sex Female 6:28 AM STRIKE PLANNING APPLICATIONS Gender Identity Not on file Sexual Orientation [...] documented as of this encounter Care Teams Paint Mixer Relationship Specialty Start Date End Date Jose Bowers MD [address] [place] [address] PCP - General 12/31/05 documented as of this encounter
--- OUTSIDE RECORDS SUMMARY | 2025-04-22 16:57 | XMS_ITS | Encounter Summary ---
Author Organization [facility] Address [address] [place] [address] Care Team Providers Care Cogeneration Technician Name Role Phone Jose Bowers MD Primary Care Provider Unavailab le Encounter Details Date Type Department Care Team (Latest Contact Info) Description 02/05/2005 Outpatient Historical [facility] Acute [facility] [address] [place] [address] [place] [phone] Morenita Muñiz MD [address] [place] [address] ADMINISTRTVE ENCOUNT NOS (Primary Dx) Social History Tobacco Use Types Packs/Day Years Used Date Smoking Tobacco: Never Assessed Comments Unknown Sex and Gender Information Value Date Recorded Sex Assigned at Not on file Legal Sex Female 6:28 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 Gender Identity Not on file Sexual Orientation Not on file documented as of this encounter Plan of Treatment Not on file documented as of this encounter Visit Diagnoses Diagnosis Encounters for unspecified administrative purpose- Primary documented in this encounter Additional Health Concerns Infection Onset Date Last Indicated Resolved Time MRSA Comment:Kapil 10/26/15 10/27/2015 10/27/2015 documented as of this encounter Care Teams Cogeneration Technician Relationship Specialty Start Date End Date Jose Bowers MD [address] [place] [address] PCP - General 12/31/05 documented as of this encounter
--- OUTSIDE RECORDS SUMMARY | 2025-04-22 16:57 | XMS_ITS | Encounter Summary ---
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 Name Role Phone Jose Bowers MD Primary Care Provider Levon le Encounter Details Date Type Department Care Team (Late st Contact Info) Description 05/01/2008 Outpatient Historical HIS IN BED Sj Ed, Physician NO ADDRESS ON FILE Cassie Woodruff MD [address] [place] [id number] Riky Mejía MD NO ADDRESS ON FILE [...] on file Legal Sex Female 6:28 AM INCINERATOR OPERATOR Gender Identity Not on file Sexual Orientation Not on file documented as of this encounter Plan of Treatment Not on file documented as of this encounter Procedures Procedure Name Priority Date/Time Associated Diagnosis Comments POC GLUCOSE Routine 05/12/2008 7:37 AM INCINERATOR OPERATOR POC GLUCOSE Routine 05/11/2008 9:43 PM INCINERATOR OPERATOR POC GLUCOSE Routine 05/11/2008 5:35 PM INCINERATOR OPERATOR POC GLUCOSE Routine 05/11/2008 11:40 AM INCINERATOR OPERATOR POC GLUCOSE Routine 05/11/2008 7:38 AM INCINERATOR OPERATOR POC GLUCOSE Routine 05/10/2008 9:54 PM INCINERATOR OPERATOR POC GLUCOSE Routine 05/10/2008 5:34 PM INCINERATOR OPERATOR POC GLUCOSE Routine 05/10/2008 12:08 PM INCINERATOR OPERATOR POC GLUCOSE Routine 05/10/2008 8:31 AM INCINERATOR OPERATOR CBC WITH DIFFERENTIAL Routine 05/10/2008 5:47 AM INCINERATOR OPERATOR COMPREHENSIVE METABOLIC PANEL Routine 05/10/2008 5:47 AM INCINERATOR OPERATOR POC GLUCOSE Routine 05/09/2008 9:17 PM INCINERATOR OPERATOR POC GLUCOSE Routine 05/09/2008 6:31 PM INCINERATOR OPERATOR POC GLUCOSE Routine 05/09/2008 12:20 PM INCINERATOR OPERATOR POC GLUCOSE Routine 05/09/2008 8:50 AM INCINERATOR OPERATOR POC GLUCOSE Routine 05/08/2008 8:06 PM CDT [...] * (ABNORMAL) POC GLUCOSE (05/12/2008 7:37 AM INCINERATOR OPERATOR) GLUCOSE POC 124(H) 60 - 100 mg/dL [facility] Venous blood specimen (specimen) 05/12/2008 7:37 AM INCINERATOR OPERATOR 05/13/2008 3:52 AM INCINERATOR OPERATOR us Riky Mejía MD POINT OF CARE TESTING Final Result Performing Organization Address [facility] Phone Number INTERFACE SYSTEM Refer to clinic/hospital department [facility] CLIA# [id number] [address] [place] [address] * (ABNORMAL) POC GLUCOSE (05/11/2008 9:43 PM INCINERATOR OPERATOR) GLUCOSE POC 123(H) 60 - 100 mg/dL [facility] Venous blood specimen (specimen) 05/11/2008 9:43 PM INCINERATOR OPERATOR 05/12/2008 3:33 AM INCINERATOR OPERATOR us Riky Mejía MD POINT OF CARE TESTING Final Result Performing Organization Address [facility] de Phone Number INTERFACE SYSTEM Refer to clinic/hospital department [facility] CLIA# [id number] [address] [place] [address] * (ABNORMAL) POC GLUCOSE (05/11/2008 5:35 PM INCINERATOR OPERATOR) GLUCOSE POC 117(H) 60 - 100 mg/dL [facility] Venous blood specimen (specimen) 05/11/2008 5:35 PM INCINERATOR OPERATOR 05/12/2008 3:33 AM INCINERATOR OPERATOR Riky Mejía MD POINT OF CARE TESTING Final Result Performing Organization Address City/[facility] de Phone Number INTERFACE SYSTEM Refer to clinic/hospital department [facility] CLIA# [id number] [address] [place] [address] * (ABNORMAL) POC GLUCOSE (05/11/2008 11:40 AM INCINERATOR OPERATOR) GLUCOSE POC 132(H) 60 - 100 mg/dL [facility] Venous blood specimen (specimen) 05/11/2008 11:40 AM INCINERATOR OPERATOR 05/12/2008 3:30 AM INCINERATOR OPERATOR Riky Mejía MD POINT OF CARE TESTING Final Result Performing Organization Address [facility] Phone Number INTERFACE SYSTEM Refer to clinic/hospital department [facility] CLIA# [id number] [address] [place] [address] * (ABNORMAL) POC GLUCOSE (05/11/2008 7:38 AM INCINERATOR OPERATOR) GLUCOSE POC 121(H) 60 - 100 mg/dL [facility] Venous blood specimen (specimen) 05/11/2008 7:38 AM INCINERATOR OPERATOR 05/12/2008 3:33 AM INCINERATOR OPERATOR Riky Mejía MD POINT OF CARE TESTING Final Result Performing Organization Address [facility] de Phone Number INTERFACE SYSTEM Refer to clinic/[facility] CLIA# [id number] [address] [place] [address] * (ABNORMAL) POC GLUCOSE (05/10/2008 9:54 PM INCINERATOR OPERATOR) GLUCOSE POC 122(H) 60 - 100 mg/dL [facility] Venous blood specimen (specimen) 05/10/2008 9:54 PM INCINERATOR OPERATOR 05/11/2008 4:24 AM INCINERATOR OPERATOR Riky Mejía MD POINT OF CARE TESTING Final Result Performing Organization Address City/[facility] Phone Number INTERFACE SYSTEM Refer to clinic/hospital department [facility] CLIA# [id number] [address] [place] [address] * (ABNORMAL) POC GLUCOSE (05/10/2008 5:34 PM INCINERATOR OPERATOR) GLUCOSE POC 111(H) 60 - 100 mg/dL [facility] Venous blood specimen (specimen) 05/10/2008 5:34 PM INCINERATOR OPERATOR 05/11/2008 4:24 AM INCINERATOR OPERATOR Riky Mejía MD POINT OF CARE TESTING Final Result Performing Organization Address [facility] Phone Number INTERFACE SYSTEM Refer to clinic/hospital department [facility] CLIA# [id number] [address] [place] [address] * (ABNORMAL) POC GLUCOSE (05/10/2008 12:08 PM INCINERATOR OPERATOR) GLUCOSE POC 127(H) 60 - 100 mg/dL [facility] Venous blood specimen (specimen) 05/10/2008 12:08 PM INCINERATOR OPERATOR 05/11/2008 4:18 AM INCINERATOR OPERATOR Riky Mejía MD POINT OF CARE TESTING Final Result Performing Organization Address [facility] de Phone Number INTERFACE SYSTEM Refer to clinic/hospital department [facility] CLIA# [id number] [address] [place] [address] * (ABNORMAL) POC GLUCOSE (05/10/2008 8:31 AM INCINERATOR OPERATOR) GLUCOSE POC 122(H) 60 - 100 mg/dL [facility] Venous blood specimen (specimen) 05/10/2008 8:31 AM INCINERATOR OPERATOR 05/11/2008 4:18 AM INCINERATOR OPERATOR Riky Mejía MD POINT OF CARE TESTING Final Result INTERFACE SYSTEM Refer to clinic/hospital department [facility] CLIA# [id number] [address] [place] [address] * (ABNORMAL) COMPREHENSIVE METABOLIC PANEL (05/10/2008 5:47 AM INCINERATOR OPERATOR) GLOBULIN (CALC) 2.3(L) 2.4 - 3.9 g/dL [facility] SODIUM 141 136 - 145 mEq/L [facility] BILIRUBIN TOTAL 0.4 0.3 - 1.2 mg/dL [facility] TOTAL PROTEIN 5.0(L) 6.3 - 8.2 g/dL [facility] BUN 7 7 - 17 mg/dL [facility] AST 24 8 - 33 U/L [facility] CO2 30 22 - 32 mmol/l [facility] ALBUMIN/GLOBULIN RATIO 1.2 1.0 - 2.3 [facility] ALBUMIN 2.7(L) 3.5 - 5.0 g/dL [facility] POTASSIUM 3.3(L) 3.5 - 5.0 mEq/L [facility] ANION GAP 7(L) 9 - 20 mEq/L [facility] CALCIUM 8.0(L) 8.4 - 10.5 mg/dL [facility] CREATININE 0.4(L) 0.7 - 1.2 mg/dL [facility] ALT 10 4 - 36 IU/L [facility] GLUCOSE 99 70 - 110 mg/dL [facility] CHLORIDE 107 95 - 110 mEq/L [facility] OSMOLALITY, CALCULATED 286 275 - 295 mOsm/Kg [facility] ALKALINE PHOSPHATASE 73 25 - 100 U/L [facility] Blood specimen (specimen) 05/10/2008 5:47 AM INCINERATOR OPERATOR 05/10/2008 5:52 AM INCINERATOR OPERATOR Riky Mejía MD CHEMISTRY ORDERABLES Final Result INTERFACE SYSTEM Refer to clinic/hospital department [facility] CLIA# [id number] [facility] [place] [address] * (ABNORMAL) CBC WITH DIFFERENTIAL (05/10/2008 5:47 AM INCINERATOR OPERATOR) LYMPHOCYTE ABSOLUTE 0.9(L) 1.2 - 4.0 K/ul [facility] MCV 96.4 84.0 - 103.0 Fl [facility] MPV 10.1 8.9 - 12.8 Fl [facility] BASOPHILS ABSOLUTE 0.0 0.0 - 0.2 K/ul [facility] BASOPHILS 0.7 0.0 - 1.0 % [facility] HEMOGLOBIN 8.3(L) 12.0 - 16.0 g/dL [facility] RDW 18.6(H) 11.0 - 14.5 % [facility] MONOCYTE ABSOLUTE 0.6 0.1 - 0.6 K/ul [facility] MONOCYTES 9.3 2.0 - 10.0 % [facility] WBC 6.1 4.5 - 11.0 K/ul [facility] MCH 29.5 27.0 - 34.0 pg [facility] NEUTROPHIL ABSOLUTE 4.3 2.0 - 8.0 K/ul [facility] NEUTROPHILS 70.5 42.2 - 75.2 % [facility] HEMATOCRIT 27.1(L) 36.0 - 46.0 % [facility] EOSINOPHILS 4.1 0.0 - 7.0 % [facility] PLATELETS 278 140 - 440 K/ul [facility] PERIPHERAL BLOOD SMEAR REVIEW Automated Diff [facility] EOSINOPHIL ABSOLUTE 0.3 0.0 - 0.7 K/ul [facility] RBC 2.81(L) 4.20 - 5.40 Mil/ul [facility] LYMPHOCYTES 15.4(L) 24.0 - 44.0 % [facility] MCHC 30.6 30.0 - 35.0 g/dL [facility] Blood specimen (specimen) 05/10/2008 5:47 AM INCINERATOR OPERATOR 05/10/2008 5:52 AM INCINERATOR OPERATOR us Ottoniel Vanegas MD HEMATOLOGY ORDERABLES Teresa l Result Performing Organization Address [facility] Phone Number INTERFACE SYSTEM Refer to clinic/hospital department [facility] CLIA# [id number] [address] [place] [address] * (ABNORMAL) POC GLUCOSE (05/09/2008 9:17 PM INCINERATOR OPERATOR) COMMENT POC Follow Protocol [facility] GLUCOSE POC 116(H) 60 - 100 mg/dL [facility] Venous blood specimen (specimen) 05/09/2008 9:17 PM INCINERATOR OPERATOR 05/10/2008 3:50 AM INCINERATOR OPERATOR us Riky Mejía MD POINT OF CARE TESTING Final Result Performing Organization Address [facility] Phone Number INTERFACE SYSTEM Refer to clinic/hospital department [facility] CLIA# [id number] [address] [place] [address] * POC GLUCOSE (05/09/2008 6:31 PM INCINERATOR OPERATOR) GLUCOSE POC 96 60 - 100 mg/dL [facility] Venous blood specimen (specimen) 05/09/2008 6:31 PM INCINERATOR OPERATOR 05/10/2008 3:50 AM INCINERATOR OPERATOR us Riky Mejía MD POINT OF CARE TESTING Final Result Performing Organization Address [facility] de Phone Number INTERFACE SYSTEM Refer to clinic/hospital department [facility] CLIA# [id number] [address] [place] [address] * (ABNORMAL) POC GLUCOSE (05/09/2008 12:20 PM INCINERATOR OPERATOR) GLUCOSE POC 123(H) 60 - 100 mg/dL [facility] Venous blood specimen (specimen) 05/09/2008 12:20 PM INCINERATOR OPERATOR 05/10/2008 3:50 AM INCINERATOR OPERATOR Riky Mejía MD POINT OF CARE TESTING Final Result Performing Organization Address [facility] de Phone Number INTERFACE SYSTEM Refer to clinic/hospital department [facility] CLIA# [id number] [address] [place] [address] * (ABNORMAL) POC GLUCOSE (05/09/2008 8:50 AM INCINERATOR OPERATOR) GLUCOSE POC 139(H) 60 - 100 mg/dL [facility] Venous blood specimen (specimen) 05/09/2008 8:50 AM INCINERATOR OPERATOR 05/10/2008 3:50 AM INCINERATOR OPERATOR Riky Mejía MD POINT OF CARE TESTING Final Result Performing Organization Address [facility] de Phone Number INTERFACE SYSTEM Refer to clinic/hospital department [facility] CLIA# [id number] [address] [place] [address] * (ABNORMAL) POC GLUCOSE (05/08/2008 8:06 PM CDT) GLUCOSE POC 115(H) 60 - 100 mg/dL [facility] COMMENT POC Recheck result [facility] Venous blood specimen (specimen) 05/08/2008 8:06 PM CDT 05/10/2008 7:16 AM INCINERATOR OPERATOR Riky Mejía MD POINT OF CARE TESTING Final Result Performing Organization Address [facility] de Phone Number INTERFACE SYSTEM Refer to clinic/hospital department [facility] CLIA# [id number] [address] [place] [address] * (ABNORMAL) POC GLUCOSE (05/08/2008 6:26 PM CDT) COMMENT POC Recheck result [facility] GLUCOSE POC 119(H) 60 - 100 mg/dL [facility] Venous blood specimen (specimen) 05/08/2008 6:26 PM CDT 05/10/2008 7:16 AM INCINERATOR OPERATOR Riky Mejía MD POINT OF CARE TESTING Final Result Performing Organization Address [facility] de Phone Number INTERFACE SYSTEM Refer to clinic/hospital department [facility] CLIA# [id number] [address] [place] [address] * (ABNORMAL) POC GLUCOSE (05/08/2008 12:27 PM CDT) [facility] GLUCOSE POC 130(H) 60 - 100 mg/dL [facility] Venous blood specimen (specimen) 05/08/2008 12:27 PM CDT 05/09/2008 1:13 AM CDT Riky Mejía MD POINT OF CARE TESTING Final Result Performing Organization Address [facility] Phone Number INTERFACE SYSTEM Refer to clinic/hospital department [facility] CLIA# [id number] [address] [place] [address] * (ABNORMAL) CBC WITH DIFFERENTIAL (05/08/2008 7:35 AM CDT) HEMOGLOBIN 8.0(L) 12.0 - 16.0 g/dL [facility] MONOCYTES 8.7 2.0 - 10.0 % [facility] RDW 18.5(H) 11.0 - 14.5 % [facility] MONOCYTE ABSOLUTE 0.7(H) 0.1 - 0.6 K/ul [facility] WBC 7.5 4.5 - 11.0 K/ul [facility] NEUTROPHILS 73.3 42.2 - 75.2 % [facility] MCH 29.7 27.0 - 34.0 pg [facility] NEUTROPHIL ABSOLUTE 5.5 2.0 - 8.0 K/ul [facility] HEMATOCRIT 25.8(L) 36.0 - 46.0 % [facility] PLATELETS 219 140 - 440 K/ul [facility] EOSINOPHIL ABSOLUTE 0.3 0.0 - 0.7 K/ul [facility] EOSINOPHILS 4.3 0.0 - 7.0 % [facility] RBC 2.69(L) 4.20 - 5.40 Mil/ul [facility] MCHC 31.0 30.0 - 35.0 g/dL [facility] LYMPHOCYTE ABSOLUTE 0.9(L) 1.2 - 4.0 K/ul [facility] LYMPHOCYTES 12.6(L) 24.0 - 44.0 % [facility] MCV 95.9 84.0 - 103.0 Fl [facility] BASOPHILS 1.1(H) 0.0 - 1.0 % [facility] MPV 10.6 8.9 - 12.8 Fl [facility] BASOPHILS ABSOLUTE 0.1 0.0 - 0.2 K/ul [facility] Blood specimen (specimen) 05/08/2008 7:35 AM CDT 05/08/2008 7:48 AM CDT us Riky Mejía MD HEMATOLOGY ORDERABLES Final Result INTERFACE SYSTEM Refer to clinic/hospital department [facility] CLIA# [id number] [facility] [place] [address] * (ABNORMAL) POC GLUCOSE (05/08/2008 5:15 AM CDT) GLUCOSE POC 132(H) 60 - 100 mg/dL [facility] Venous blood specimen (specimen) 05/08/2008 5:15 AM CDT 05/09/2008 1:13 AM CDT Riky Mejía MD POINT OF CARE TESTING Final Result Performing Organization Address [facility] de Phone Number INTERFACE SYSTEM Refer to clinic/hospital department [facility] CLIA# [id number] [address] [place] [address] * (ABNORMAL) POC GLUCOSE (05/07/2008 8:43 PM CDT) GLUCOSE POC 137(H) 60 - 100 mg/dL [facility] COMMENT POC Recheck result [facility] Venous blood specimen (specimen) 05/07/2008 8:43 PM CDT 05/10/2008 7:16 AM INCINERATOR OPERATOR Riky Mejía MD POINT OF CARE TESTING Final Result Performing Organization Address [facility] de Phone Number INTERFACE SYSTEM Refer to clinic/hospital department [facility] CLIA# [id number] [address] [place] [address] * (ABNORMAL) POC GLUCOSE (05/07/2008 5:13 PM CDT) GLUCOSE POC 137(H) 60 - 100 mg/dL [facility] COMMENT POC Recheck result [facility] Venous blood specimen (specimen) 05/07/2008 5:13 PM CDT 05/10/2008 7:16 AM INCINERATOR OPERATOR Riky Mejía MD POINT OF CARE TESTING Final Result Performing Organization Address City/[facility] de Phone Number INTERFACE SYSTEM Refer to clinic/hospital department [facility] CLIA# [id number] [address] [place] [address] * (ABNORMAL) POC GLUCOSE (05/07/2008 12:06 PM CDT) COMMENT POC Notify RN [facility] GLUCOSE POC 159(H) 60 - 100 mg/dL [facility] Venous blood specimen (specimen) 05/07/2008 12:06 PM CDT 05/08/2008 3:26 AM CDT Riky Mejía MD POINT OF CARE TESTING Final Result Performing Organization Address [facility] de Phone Number INTERFACE SYSTEM Refer to clinic/hospital department [facility] CLIA# [id number] [address] [place] [address] * (ABNORMAL) POC GLUCOSE (05/07/2008 8:20 AM CDT) GLUCOSE POC 135(H) 60 - 100 mg/dL [facility] COMMENT POC Notify R.N [facility] Venous blood specimen (specimen) 05/07/2008 8:20 AM CDT 05/08/2008 3:26 AM CDT Riky Mejía MD POINT OF CARE TESTING Final Result Performing Organization Address [facility] de Phone Number INTERFACE SYSTEM Refer to clinic/hospital department [facility] CLIA# [id number] [address] [place] [address] * (ABNORMAL) POC GLUCOSE (05/07/2008 5:22 AM CDT) GLUCOSE POC 133(H) 60 - 100 mg/dL [facility] Venous blood specimen (specimen) 05/07/2008 5:22 AM CDT 05/08/2008 3:25 AM CDT us Riky Mejía MD POINT OF CARE TESTING Final Result Performing Organization Address City/[facility] de Phone Number INTERFACE SYSTEM Refer to clinic/hospital department [facility] CLIA# [id number] [address] [place] [address] * (ABNORMAL) POC GLUCOSE (05/06/2008 8:39 PM CDT) GLUCOSE POC 116(H) 60 - 100 mg/dL [facility] COMMENT POC Notify R.N [facility] Venous blood specimen (specimen) 05/06/2008 8:39 PM CDT 05/07/2008 3:27 AM CDT us Riky Mejía MD POINT OF CARE TESTING Final Result INTERFACE SYSTEM Refer to clinic/hospital department [facility] CLIA# [id number] [address] [place] [address] * CT ABDOMEN PELVIS W CONTRAST (05/06/2008 [...] GLUCOSE POC 126(H) 60 - 100 mg/dL [facility] Venous blood specimen (specimen) 05/06/2008 5:38 PM CDT 05/07/2008 3:27 AM CDT Riky Mejía MD POINT OF CARE TESTING Final Result Performing Organization Address [facility] de Phone Number INTERFACE SYSTEM Refer to clinic/hospital department [facility] CLIA# [id number] [address] [place] [address] * (ABNORMAL) POC GLUCOSE (05/06/2008 12:55 PM CDT) GLUCOSE POC 120(H) 60 - 100 mg/dL [facility] Venous blood specimen (specimen) 05/06/2008 12:55 PM CDT 05/07/2008 3:27 AM CDT Riky Mejía MD POINT OF CARE TESTING Final Result Performing Organization Address [facility] Phone Number INTERFACE SYSTEM Refer to clinic/hospital department [facility] CLIA# [id number] [address] [place] [address] * (ABNORMAL) POC GLUCOSE (05/06/2008 8:03 AM CDT) GLUCOSE POC 134(H) 60 - 100 mg/dL [facility] Venous blood specimen (specimen) 05/06/2008 8:03 AM CDT 05/07/2008 3:24 AM CDT Riky Mejía MD POINT OF CARE TESTING Final Result Performing Organization Address [facility] de Phone Number INTERFACE SYSTEM Refer to clinic/hospital [facility] CLIA# [id number] [address] [place] [address] * (ABNORMAL) BASIC METABOLIC PANEL (05/06/2008 5:34 AM CDT) CREATININE 0.5(L) 0.7 - 1.2 mg/dL [facility] CALCIUM 8.1(L) 8.4 - 10.5 mg/dL [facility] GLUCOSE 111(H) 70 - 110 mg/dL [facility] CHLORIDE 107 95 - 110 mEq/L [facility] ANION GAP 11 9 - 20 mEq/L [facility] SODIUM 137 136 - 145 mEq/L [facility] BUN 10 7 - 17 mg/dL [facility] CO2 23 22 - 32 mmol/l [facility] POTASSIUM 3.7 3.5 - 5.0 mEq/L [facility] OSMOLALITY, CALCULATED 281 275 - 295 mOsm/Kg [facility] Blood specimen (specimen) 05/06/2008 5:34 AM CDT 05/06/2008 5:34 AM CDT us Riky Mejía MD CHEMISTRY ORDERABLES Final Result INTERFACE SYSTEM Refer to clinic/hospital department [facility] CLIA# [id number] [address] [place] [address] * (ABNORMAL) CBC WITH DIFFERENTIAL (05/06/2008 5:34 AM CDT) LYMPHOCYTES 11.5(L) 24.0 - 44.0 % [facility] MCHC 30.9 30.0 - 35.0 g/dL [facility] LYMPHOCYTE ABSOLUTE 0.9(L) 1.2 - 4.0 K/ul [facility] MCV 96.3 84.0 - 103.0 Fl [facility] MPV 11.1 8.9 - 12.8 Fl [facility] BASOPHILS ABSOLUTE 0.0 0.0 - 0.2 K/ul [facility] BASOPHILS 0.4 0.0 - 1.0 % [facility] HEMOGLOBIN 8.0(L) 12.0 - 16.0 g/dL [facility] RDW 18.5(H) 11.0 - 14.5 % [facility] MONOCYTE ABSOLUTE 0.7(H) 0.1 - 0.6 K/ul [facility] MONOCYTES 9.2 2.0 - 10.0 % [facility] WBC 7.7 4.5 - 11.0 K/ul [facility] MCH 29.7 27.0 - 34.0 pg [facility] NEUTROPHIL ABSOLUTE 5.8 2.0 - 8.0 K/ul [facility] NEUTROPHILS 75.3(H) 42.2 - 75.2 % [facility] HEMATOCRIT 25.9(L) 36.0 - 46.0 % [facility] EOSINOPHILS 3.6 0.0 - 7.0 % [facility] PLATELETS 203 140 - 440 K/ul [facility] PERIPHERAL BLOOD SMEAR REVIEW Automated Diff [facility] EOSINOPHIL ABSOLUTE 0.3 0.0 - 0.7 K/ul [facility] RBC 2.69(L) 4.20 - 5.40 Mil/ul [facility] Blood specimen (specimen) 05/06/2008 5:34 AM CDT 05/06/2008 5:34 AM CDT us Riky Mejía MD HEMATOLOGY ORDERABLES Final Result Performing Organization Address [facility] de Phone Number INTERFACE SYSTEM Refer to clinic/hospital department [facility] CLIA# [id number] [address] [place] [address] * (ABNORMAL) POC GLUCOSE (05/05/2008 8:26 PM CDT) GLUCOSE POC 157(H) 60 - 100 mg/dL [facility] Venous blood specimen (specimen) 05/05/2008 8:26 PM CDT 05/06/2008 3:31 AM CDT us Riky Mejía MD POINT OF CARE TESTING Final Result Performing Organization Address City/[facility] de Phone Number INTERFACE SYSTEM Refer to clinic/hospital department [facility] CLIA# [id number] [address] [place] [address] * (ABNORMAL) POC GLUCOSE (05/05/2008 4:57 PM CDT) GLUCOSE POC 124(H) 60 - 100 mg/dL [facility] Venous blood specimen (specimen) 05/05/2008 4:57 PM CDT 05/06/2008 3:31 AM CDT Riky Mejía MD POINT OF CARE TESTING Final Result Performing Organization Address [facility] de Phone Number INTERFACE SYSTEM Refer to clinic/hospital department [facility] CLIA# [id number] [address] [place] [address] * (ABNORMAL) POC GLUCOSE (05/05/2008 11:30 AM CDT) GLUCOSE POC 127(H) 60 - 100 mg/dL [facility] Venous blood specimen (specimen) 05/05/2008 11:30 AM CDT 05/06/2008 3:31 AM CDT Riky Mejía MD POINT OF CARE TESTING Final Result Performing Organization Address [facility] de Phone Number INTERFACE SYSTEM Refer to clinic/hospital department [facility] CLIA# [id number] [address] [place] [address] * (ABNORMAL) POC GLUCOSE (05/05/2008 8:05 AM CDT) GLUCOSE POC 137(H) 60 - 100 mg/dL [facility] Venous blood specimen (specimen) 05/05/2008 8:05 AM CDT 05/06/2008 3:31 AM CDT Riky Mejía MD POINT OF CARE TESTING Final Result Performing Organization Address City/[facility] de Phone Number INTERFACE SYSTEM Refer to clinic/hospital department [facility] CLIA# [id number] [address] [place] [address] * (ABNORMAL) POC GLUCOSE (05/04/2008 9:56 PM CDT) GLUCOSE POC 115(H) 60 - 100 mg/dL [facility] Venous blood specimen (specimen) 05/04/2008 9:56 PM CDT 05/05/2008 2:27 AM CDT Riky Mejía MD POINT OF CARE TESTING Final Result Performing Organization Address City/[facility] de Phone Number INTERFACE SYSTEM Refer to clinic/hospital department [facility] CLIA# [id number] [address] [place] [address] * (ABNORMAL) POC GLUCOSE (05/04/2008 5:34 PM CDT) GLUCOSE POC 120(H) 60 - 100 mg/dL [facility] Venous blood specimen (specimen) 05/04/2008 5:34 PM CDT 05/05/2008 5:02 AM CDT Riky Mejía MD POINT OF CARE TESTING Final Result Performing Organization Address [facility] de Phone Number INTERFACE SYSTEM Refer to clinic/hospital department [facility] CLIA# [id number] [address] [place] [address] * (ABNORMAL) POC GLUCOSE (05/04/2008 11:15 AM CDT) GLUCOSE POC 133(H) 60 - 100 mg/dL [facility] Venous blood specimen (specimen) 05/04/2008 11:15 AM CDT 05/05/2008 2:27 AM CDT Riky Mejía MD POINT OF CARE TESTING Final Result Performing Organization Address City/[facility] Co de Phone Number INTERFACE SYSTEM Refer to clinic/hospital department [facility] CLIA# [id number] [address] [place] [address] * URINE CULTURE (05/04/2008 9:06 AM CDT) FINAL REPORT No growth INTERFA CE SYSTEM 05/04/2008 9:06 AM CDT 05/04/2008 9:06 AM CDT us Riky Mejía MD MICROBIOLOGY - GENERAL ORDE [facility] Final Result Performing Organization Address [facility] Phone Number INTERFACE SYSTEM Refer to clinic/hospital department * (ABNORMAL) POC GLUCOSE (05/04/2008 7:37 AM CDT) GLUCOSE POC 139(H) 60 - 100 mg/dL [facility] Venous blood specimen (specimen) 05/04/2008 7:37 AM CDT 05/05/2008 2:27 AM CDT us Riky Mejía MD POINT OF CARE TESTING Final Result Performing Organization Address [facility] Phone Number INTERFACE SYSTEM Refer to clinic/hospital department [facility] CLIA# [id number] [address] [place], [place] [address] * (ABNORMAL) URINALYSIS MICROSCOPY ONLY (05/04/2008 2:12 AM CDT) HYALINE CAST None Seen 0 - 2 [facility] WBC URINE 0-2 0 - 2 [facility] BACTERIA UA Small(A) None Seen [facility] RBC UA 6-10(A) 0 - 2 [facility] Urine specimen (specimen) 05/04/2008 2:12 AM CDT 05/04/2008 2:12 AM CDT Narrative INTERFACE SYSTEM - 05/04/2008 2:30 AM CDT Microscopic ordered by policy us Riky Mejía MD URINE ORDERABLES Final Resu lt Performing Organization Address [facility] Phone Number INTERFACE SYSTEM Refer to clinic/hospital department [facility] CLIA# [id number] [address] [place] [address] * ICTOTEST (05/04/2008 2:12 AM CDT) Pathologist [facility] ICTO Negative Negative [facility] Urine specimen (specimen) 05/04/2008 2:12 AM CDT 05/04/2008 2:12 AM CDT Narrative INTERFACE SYSTEM - 05/04/2008 2:30 AM CDT Bili verified by ictotest us Riky Mejía MD URINE ORDERABLES Final Resu lt Performing Organization Address [facility] de Phone Number INTERFACE SYSTEM Refer to clinic/hospital department [facility] CLIA# [id number] [address] [place] [address] * (ABNORMAL) URINALYSIS (05/04/2008 2:12 AM CDT) Pathologist [facility] LEUKOCYTE ESTERASE UA NEGATIVE NEGATIVE [facility] KETONES UA Trace(A) NEGATIVE [facility] COLOR UA Yellow Straw [facility] PROTEIN UA 100 mg/dl(A) NEGATIVE [facility] SPECIFIC GRAVITY UA 1.010 <=1.005 [facility] NITRITE UA NEGATIVE NEGATIVE [facility] UROBILINOGEN UA 0.2 0.2 [facility] CLARITY UA Clear Clear [facility] GLUCOSE UA NEGATIVE NEGATIVE [facility] MICRO EXAM Yes(A) No [facility] PH UA 6.5 5.0 - 9.0 [facility] BLOOD UA MODERATE(A) NEGATIVE [facility] Urine specimen (specimen) 05/04/2008 2:12 AM CDT 05/04/2008 2:12 AM CDT us Riky Mejía MD URINE ORDERABLES Final Resu lt Performing Organization Address [facility] de Phone Number INTERFACE SYSTEM Refer to clinic/hospital department [facility] CLIA# [id number] [address] [place] [address] * BLOOD CULTURE (05/04/2008 2:02 AM CDT) Pathologist [facility] FINAL REPORT No growth INTERFA CE SYSTEM Blood specimen (specimen) 05/04/2008 2:02 AM CDT 05/04/2008 3:36 AM CDT us Riky Mejía MD [facility] Final Result Performing Organization Address [facility] Phone Number INTERFACE SYSTEM Refer to clinic/hospital department * (ABNORMAL) BASIC METABOLIC PANEL (05/04/2008 1:55 AM CDT) Pathologist [facility] OSMOLALITY, CALCULATED 282 275 - 295 mOsm/Kg [facility] POTASSIUM 4.3 3.5 - 5.0 mEq/L [facility] CREATININE 0.6(L) 0.7 - 1.2 mg/dL [facility] CALCIUM 9.0 8.4 - 10.5 mg/dL [facility] GLUCOSE 120(H) 70 - 110 mg/dL [facility] CHLORIDE 108 95 - 110 mEq/L [facility] SODIUM 135(L) 136 - 145 mEq/L [facility] ANION GAP 10 9 - 20 mEq/L [facility] BUN 17 7 - 17 mg/dL [facility] CO2 21(L) 22 - 32 mmol/l [facility] Blood specimen (specimen) 05/04/2008 1:55 AM CDT 05/04/2008 2:49 AM CDT us Riky Mejía MD CHEMISTRY ORDERABLES Final Result Performing Organization Address [facility] de Phone Number INTERFACE SYSTEM Refer to clinic/hospital department [facility] CLIA# [id number] [address] [place] [address] * (ABNORMAL) CBC WITH DIFFERENTIAL (05/04/2008 1:55 AM CDT) PERIPHERAL BLOOD SMEAR REVIEW Automated Diff [facility] EOSINOPHIL ABSOLUTE 0.2 0.0 - 0.7 K/ul [facility] RBC 2.86(L) 4.20 - 5.40 Mil/ul [facility] MCHC 31.6 30.0 - 35.0 g/dL [facility] LYMPHOCYTES 11.5(L) 24.0 - 44.0 % [facility] LYMPHOCYTE ABSOLUTE 1.0(L) 1.2 - 4.0 K/ul [facility] MCV 96.2 84.0 - 103.0 Fl [facility] MPV 11.1 8.9 - 12.8 Fl [facility] BASOPHILS ABSOLUTE 0.0 0.0 - 0.2 K/ul [facility] BASOPHILS 0.4 0.0 - 1.0 % [facility] HEMOGLOBIN 8.7(L) 12.0 - 16.0 g/dL [facility] RDW 18.6(H) 11.0 - 14.5 % [facility] MONOCYTE ABSOLUTE 1.0(H) 0.1 - 0.6 K/ul [facility] MONOCYTES 10.9(H) 2.0 - 10.0 % [facility] WBC 8.9 4.5 - 11.0 K/ul [facility] NEUTROPHILS 75.1 42.2 - 75.2 % [facility] MCH 30.4 27.0 - 34.0 pg [facility] NEUTROPHIL ABSOLUTE 6.7 2.0 - 8.0 K/ul [facility] HEMATOCRIT 27.5(L) 36.0 - 46.0 % [facility] PLATELETS 180 140 - 440 K/ul [facility] EOSINOPHILS 2.1 0.0 - 7.0 % [facility] Blood specimen (specimen) 05/04/2008 1:55 AM CDT 05/04/2008 2:25 AM CDT us Riky Mejía MD HEMATOLOGY ORDERABLES Final Result Performing Organization Address [facility] de Phone Number INTERFACE SYSTEM Refer to clinic/hospital department [facility] CLIA# [id number] [address] [place] [address] * BLOOD CULTURE (05/04/2008 1:55 AM CDT) FINAL REPORT No growth INTERFA CE SYSTEM REPORT/SPECIM EN COMMENT Specimen processed with suboptimal blood volume. Recommended adult blood volume is 8-10 mL per bottle. INTERFACE SYSTEM Blood specimen (specimen) 05/04/2008 1:55 AM CDT 05/04/2008 3:36 AM CDT us Riky Mejía MD MICROBIOLOGY - GENERAL ORDE [facility] Final Result Performing Organization Address [facility] Phone Number INTERFACE SYSTEM Refer to clinic/hospital department * (ABNORMAL) POC GLUCOSE (05/03/2008 9:24 PM CDT) GLUCOSE POC 137(H) 60 - 100 mg/dL [facility] Venous blood specimen (specimen) 05/03/2008 9:24 PM CDT 05/04/2008 4:27 AM CDT us Riky Mejía MD POINT OF CARE TESTING Final Result Performing Organization Address [facility] Phone Number INTERFACE SYSTEM Refer to clinic/hospital department [facility] CLIA# [id number] [facility] [place] [address] * (ABNORMAL) POC GLUCOSE (05/03/2008 4:35 PM CDT) GLUCOSE POC 128(H) 60 - 100 mg/dL [facility] Venous blood specimen (specimen) 05/03/2008 4:35 PM CDT 05/04/2008 4:27 AM CDT us Riky Mejía MD POINT OF CARE TESTING Final Result INTERFACE SYSTEM Refer to clinic/hospital department [facility] CLIA# [id number] [place] [address] * CT ABDOMEN PELVIS W CONTRAST (05/03/2008 [...] mm volumetric acquisition with 125 mL intravenous [id number]. Comparison: None. Findings: Consolidative atelectasis versus airspace [...] APTT (05/03/2008 9:00 AM CDT) INR 1.3 [facility] Comment: Expected Values for INR: [...] Anticoagulation available from the pharmacy [facility]. [phone] PTT 38.5(H) 22.5 - 36.5 Secs [facility] Comment: Therapeutic Range: Hi-level PE/DVT heparin protocol 80.1 -95.0 sec Lo-level PE/DVT heparin protocol 67.1 - 80.0 sec Cardiac Heparin Protocol 67.1 - 85.0 sec Neuro Heparin Protocol 67.1 - 80.0 sec As of 09/25/2007 note change in APTT Normal Range. PROTIME 18.0(H) 12.8 - 15.8 Secs [facility] Comment:As of 2007 not e change in normal range. Blood specimen (specimen) 05/03/2008 9:00 AM CDT 05/03/2008 9:10 AM CDT Narrative INTERFACE SYSTEM - 05/03/2008 9:23 AM CDT use blood in the lab us Riky Mejía MD HEMATOLOGY ORDERABLES Edite d INTERFACE SYSTEM Refer to clinic/hospital department [facility] CLIA# [id number] [address] [place] [address] * (ABNORMAL) BASIC METABOLIC PANEL (05/03/2008 5:39 AM CDT) GLUCOSE 122(H) 70 - 110 mg/dL [facility] CHLORIDE 106 95 - 110 mEq/L [facility] SODIUM 135(L) 136 - 145 mEq/L [facility] ANION GAP 14 9 - 20 mEq/L [facility] BUN 20(H) 7 - 17 mg/dL [facility] CO2 20(L) 22 - 32 mmol/l [facility] OSMOLALITY, CALCULATED 284 275 - 295 mOsm/Kg [facility] POTASSIUM 5.0 3.5 - 5.0 mEq/L [facility] CREATININE 0.6(L) 0.7 - 1.2 mg/dL [facility] CALCIUM 9.1 8.4 - 10.5 mg/dL [facility] Blood specimen (specimen) 05/03/2008 5:39 AM CDT 05/03/2008 6:15 AM CDT us Riky Mejía MD CHEMISTRY ORDERABLES Final Result INTERFACE SYSTEM Refer to clinic/hospital department [facility] CLIA# [id number] [address] [place] [address] * (ABNORMAL) CBC WITH DIFFERENTIAL (05/03/2008 5:39 AM CDT) HEMATOCRIT 28.4(L) 36.0 - 46.0 % [facility] LYMPHOCYTE ABSOLUTE 0.6(L) 1.2 - 4.0 K/ul [facility] LYMPHOCYTES 5.9(L) 24.0 - 44.0 % [facility] MCHC 31.3 30.0 - 35.0 g/dL [facility] BASOPHILS 0.2 0.0 - 1.0 % [facility] MPV 10.9 8.9 - 12.8 Fl [facility] WBC 10.2 4.5 - 11.0 K/ul [facility] BASOPHILS ABSOLUTE 0.0 0.0 - 0.2 K/ul [facility] PERIPHERAL BLOOD SMEAR REVIEW Automated Diff [facility] MCV 96.3 84.0 - 103.0 Fl [facility] MONOCYTES 9.9 2.0 - 10.0 % [facility] RDW 18.3(H) 11.0 - 14.5 % [facility] MONOCYTE ABSOLUTE 1.0(H) 0.1 - 0.6 K/ul [facility] RBC 2.95(L) 4.20 - 5.40 Mil/ul [facility] HEMOGLOBIN 8.9(L) 12.0 - 16.0 g/dL [facility] NEUTROPHILS 82.5(H) 42.2 - 75.2 % [facility] NEUTROPHIL ABSOLUTE 8.5(H) 2.0 - 8.0 K/ul [facility] MCH 30.2 27.0 - 34.0 pg [facility] PLATELETS 163 140 - 440 K/ul [facility] EOSINOPHIL ABSOLUTE 0.2 0.0 - 0.7 K/ul [facility] EOSINOPHILS 1.5 0.0 - 7.0 % [facility] Blood specimen (specimen) 05/03/2008 5:39 AM CDT 05/03/2008 6:15 AM CDT Riky Mejía MD HEMATOLOGY ORDERABLES Final Result Performing Organization Address City/[facility]/ZIP Co de Phone Number INTERFACE SYSTEM Refer to clinic/hospital department [facility] CLIA# [id number] [address] [place] [address] * URINE CULTURE (05/02/2008 10:05 PM CDT) FINAL REPORT No growth INTERFA CE SYSTEM 05/02/2008 10:0 5 PM CDT 05/02/2008 10:05 PM CDT Riky Mejía MD MICROBIOLOGY - [facility] Final Result Performing Organization Address [facility] de Phone Number INTERFACE SYSTEM Refer to clinic/hospital department * (ABNORMAL) URINALYSIS MICROSCOPY ONLY (05/02/2008 9:19 PM CDT) BACTERIA UA Few(A) None Seen [facility] WBC URINE 3-5(A) 0 - 2 [facility] RBC UA 0-2 0 - 2 [facility] HYALINE CAST 0-2 0 - 2 [facility] Urine specimen (specimen) 05/02/2008 9:19 PM CDT 05/02/2008 9:19 PM CDT Narrative INTERFACE SYSTEM - 05/02/2008 9:43 PM CDT Microscopic ordered by policy Riky Mejía MD URINE ORDERABLES Final Resu lt Performing Organization Address [facility] de Phone Number INTERFACE SYSTEM Refer to clinic/hospital department [facility] CLIA# [id number] [address] [place] [address] * (ABNORMAL) ICTOTEST (05/02/2008 9:19 PM CDT) ICTO Positive(A) Negative [facility] Urine specimen (specimen) 05/02/2008 9:19 PM CDT 05/02/2008 9:19 PM CDT Narrative INTERFACE SYSTEM - 05/02/2008 9:43 PM CDT Bili verified by ictotest us Riky Mejía MD URINE ORDERABLES Final Resu lt Performing Organization Address [facility] Phone Number INTERFACE SYSTEM Refer to clinic/hospital department [facility] CLIA# [id number] [address] [place] [address] * (ABNORMAL) URINALYSIS (05/02/2008 9:19 PM CDT) CLARITY UA Clear Clear [facility] MICRO EXAM Yes(A) No [facility] GLUCOSE UA NEGATIVE NEGATIVE [facility] PH UA 5.5 5.0 - 9.0 [facility] BLOOD UA NEGATIVE NEGATIVE [facility] LEUKOCYTE ESTERASE UA NEGATIVE NEGATIVE [facility] KETONES UA Trace(A) NEGATIVE [facility] COLOR UA Yellow Straw [facility] PROTEIN UA 100 mg/dl(A) NEGATIVE [facility] SPECIFIC GRAVITY UA >=1.030(A) <=1.005 [facility] NITRITE UA POSITIVE(A) NEGATIVE [facility] UROBILINOGEN UA 0.2 0.2 [facility] Urine specimen (specimen) 05/02/2008 9:19 PM CDT 05/02/2008 9:19 PM CDT Riky Mejía MD URINE ORDERABLES Final Resu lt Performing Organization Address [facility] Phone Number INTERFACE SYSTEM Refer to clinic/hospital department [facility] CLIA# [id number] [address] [place] [address] * (ABNORMAL) BASIC METABOLIC PANEL (05/02/2008 6:50 PM CDT) BUN 22(H) 7 - 17 mg/dL [facility] CO2 23 22 - 32 mmol/l [facility] POTASSIUM 5.3(H) 3.5 - 5.0 mEq/L [facility] Comment: Specimen slightly hemolyzed OSMOLALITY, CALCULATED 278 275 - 295 mOsm/Kg [facility] CREATININE 0.7 0.7 - 1.2 mg/dL [facility] CALCIUM 9.2 8.4 - 10.5 mg/dL [facility] GLUCOSE 124(H) 70 - 110 mg/dL [facility] CHLORIDE 101 95 - 110 mEq/L [facility] ANION GAP 12 9 - 20 mEq/L [facility] SODIUM 131(L) 136 - 145 mEq/L [facility] Blood specimen (specimen) 05/02/2008 6:50 PM CDT 05/02/2008 7:01 PM CDT us Riky Mejía MD CHEMISTRY ORDERABLES Final Result Performing Organization Address [facility] de Phone Number INTERFACE SYSTEM Refer to clinic/hospital department [facility] CLIA# [id number] [address] [place] [address] * (ABNORMAL) BASIC METABOLIC PANEL (05/02/2008 8:38 AM CDT) OSMOLALITY, CALCULATED 280 275 - 295 mOsm/Kg [facility] CREATININE 0.8 0.7 - 1.2 mg/dL [facility] CALCIUM 9.5 8.4 - 10.5 mg/dL [facility] GLUCOSE 123(H) 70 - 110 mg/dL [facility] CHLORIDE 100 95 - 110 mEq/L [facility] ANION GAP 13 9 - 20 mEq/L [facility] SODIUM 131(L) 136 - 145 mEq/L [facility] BUN 26(H) 7 - 17 mg/dL [facility] CO2 24 22 - 32 mmol/l [facility] POTASSIUM 5.5(H) 3.5 - 5.0 mEq/L [facility] Blood specimen (specimen) 05/02/2008 8:38 AM CDT 05/02/2008 8:43 AM CDT Riky Mejía MD CHEMISTRY ORDERABLES Final Result INTERFACE SYSTEM Refer to clinic/hospital department [facility] CLIA# [id number] [address] [place] [address] * (ABNORMAL) CBC WITH DIFFERENTIAL (05/02/2008 6:55 AM CDT) LYMPHOCYTE ABSOLUTE 1.4 1.2 - 4.0 K/ul [facility] MCV 95.8 84.0 - 103.0 Fl [facility] MPV 11.2 8.9 - 12.8 Fl [facility] BASOPHILS ABSOLUTE 0.1 0.0 - 0.2 K/ul [facility] BASOPHILS 0.4 0.0 - 1.0 % [facility] HEMOGLOBIN 10.8(L) 12.0 - 16.0 g/dL [facility] RDW 18.3(H) 11.0 - 14.5 % [facility] MONOCYTE ABSOLUTE 1.5(H) 0.1 - 0.6 K/ul [facility] MONOCYTES 11.3(H) 2.0 - 10.0 % [facility] WBC 13.0(H) 4.5 - 11.0 K/ul [facility] MCH 30.3 27.0 - 34.0 pg [facility] NEUTROPHIL ABSOLUTE 10.0(H) 2.0 - 8.0 K/ul [facility] NEUTROPHILS 76.9(H) 42.2 - 75.2 % [facility] HEMATOCRIT 34.2(L) 36.0 - 46.0 % [facility] EOSINOPHILS 0.8 0.0 - 7.0 % [facility] PLATELETS 164 140 - 440 K/ul [facility] PERIPHERAL BLOOD SMEAR REVIEW Automated Diff [facility] EOSINOPHIL ABSOLUTE 0.1 0.0 - 0.7 K/ul [facility] RBC 3.57(L) 4.20 - 5.40 Mil/ul [facility] LYMPHOCYTES 10.6(L) 24.0 - 44.0 % [facility] MCHC 31.6 30.0 - 35.0 g/dL [facility] Blood specimen (specimen) 05/02/2008 6:55 AM CDT 05/02/2008 7:02 AM CDT us Riky Mejía MD HEMATOLOGY ORDERABLES Final Result Performing Organization Address City/State/[facility] Co de Phone Number INTERFACE SYSTEM Refer to clinic/hospital department [facility] CLIA# [id number] [address] [place] [address] documented in this encounter Visit Diagnoses Diagnosis [...] misadventure at time of procedure Peritoneal abscess ([facility]/HCC) Peritoneal abscess Unspecified protein-calorie malnutrition Pressure ulcer, stage IV(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) ([facility]) Pressure ulcer, stage IV Pressure ulcer, upper back(707.02) Pressure ulcer, upper back Pressure ulcer, stage III(707.23) ([facility]) Pressure ulcer, stage III Removal of other organ (partial) (total) causing abnormal patient reaction, or later complication, without mention of misadventure at time of operation documented in this encounter Additional Health Concerns Infection Onset Date Last Indicated Resolved Time MRSA Comment:Kapil 10/26/15 10/27/2015 10/27/2015 documented as of this encounter Care Teams Deep Submergence Vehicle Operator Relationship Specialty Start Date End Date Jose Bowers MD [address] [place] [id number] PCP - General 12/31/05 documented as of this encounter
--- OUTSIDE RECORDS SUMMARY | 2025-04-22 16:57 | XMS_ITS | Patient Health Record ---
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 Plan Of Treatment Future Test Test Name Order Date US Renal [id number] 11/06/2023 Abdomen [id number] 11/06/2023 Insurance Providers Payer Name Payer Address Payer Phone Subscriber Number Group Number Insured Name Patient Relationship to Insured Coverage Start Date Coverage End Date [facility] Medicare Advantage PPO [address] [address] [place] [address] [id number] Jami Gandhi Self - patient is the insured [place] Medicaid [address] [place] [address] [phone] [id number] Jami Gandhi Self - patient is the insured Medications Administered Medication Instructions Date of Administration Dosage Notes cefTRIAXone Sodium 01/23/2023 2 g [facility] 04 [phone] Medical (General) History [...]
--- OUTSIDE RECORDS SUMMARY | 2025-04-22 16:57 | XMS_ITS | Clinical Summary ---
Author Organization [facility] Address 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
--- OUTSIDE RECORDS SUMMARY | 2025-04-22 16:57 | XMS_ITS | Encounter Summary ---
Author Organization [facility] Address [address] [place] [address] Care Team Providers Care Route Inspector Name Role Phone Jose Bowers MD Primary Care Provider Unavailab le Encounter Details Date Type Department Care Team (Late st Contact Info) Description 12/31/2006 Outpatient Historical [facility] [place] [address] [place] [id number] Jose Bowers MD [address] [place] [address] Paraplegia (CMS/HCC) (Primary Dx) Social History Tobacco Use Types Packs/Day Years Used Date Smoking Tobacco: Never Assessed Comments Unknown Sex and Gender Information Value Date Recorded Sex Assigned at Not on file 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
--- OUTSIDE RECORDS SUMMARY | 2025-04-22 16:57 | XMS_ITS | Clinical Summary ---
Author Organization [facility] Address [address] Attn: [place] [address] Care Team Providers Care Chief Optometry Service Name Role Phone Jose Bowers MD Primary [...] on file Legal Sex Female 3:00 AM [employer] CHIEF Gender Identity Not on file Sexual Orientation [...] 10/27/2015 10/27/2015 Insurance MEDICAID [place] Care Teams Chief Optometry Service Relationship Specialty Start Date End Date Jose Bowers MD [address] [place] [id number] PCP - General 12/31/05
[2025-04-22 16:58] LABS: Hematocrit 39.7 % (36-47); Hemoglobin 12.00 g/dL (11.27-16.99); Mean Corpuscular HGB Conc 30.2 g/dL (30-55); Mean Corpuscular Hemoglobin 29.6 pg (27-33); Mean Corpuscular Volume 98.0 fl (85-98); Nucleated Red Blood Cells % 0 %; Platelet Count 484 10^3/cmm (157-399); Red Blood Count 4.05 10^6/uL (3.85-5.65); White Blood Count 9.57 10^3/uL (3.29-11.43)
--- OUTSIDE RECORDS SUMMARY | 2025-04-22 16:58 | XMS_ITS | Encounter Summary ---
Author Organization [facility] Address [address] [place] [address] Care Team Providers Care Jacquard Twine Polisher Operator Name Role Phone Jose Bowers MD Primary Care Provider Unavailab le Encounter Details Date Type Department Care Team (Late st Contact Info) Description 08/30/2006 Outpatient Historical [facility] Physical Med and Rehab- [place] [id number] [place] [phone] Jose Bowers MD [address] [place] [address] Pain in Joint, Pelvic Region and Thigh (Primary Dx); Pain in Limb; Paraplegia (CMS/HCC) Social History Tobacco Use Types Packs/Day Years Used Date Smoking Tobacco: Never Assessed Comments Unknown Sex and Gender Information Value Date Recorded Sex Assigned at Not on file Legal Sex Female 6:28 AM ACID BLOWER Gender Identity Not on file Sexual Orientation Not on file documented as of this encounter Plan of Treatment Not on file documented as of this encounter Procedures Procedure Name Priority Date/Time Associated Diagnosis Comments XR PELVIS 3+ VW Routine 08/30/2006 12:33 PM ACID BLOWER documented in this encounter Results * XR PELVIS 3+ VW (08/30/2006 12:33 PM ACID BLOWER) Anatomical Region Laterality Modality Pelvis Other 08/30/2006 12:3 3 PM ACID BLOWER Narrative 08/30/2006 12:33 PM ACID BLOWER PELVIS AND RIGHT HIP: TECHNIQUE: Two views [...] By: Marcus Eng M.D. Date Signed: 09/02/06 Jsoe Bowers MD DIAGNOSTIC IMAGING ORDERABLES Fi nal Result documented in this encounter Visit Diagnoses Diagnosis Pain in joint, pelvic region and thigh- Primary Pain in limb Pain in soft tissues of limb Paraplegia documented in this encounter Additional Health Concerns Infection Onset Date Last Indicated Resolved Time MRSA Comment:Kapil 10/26/15 10/27/2015 10/27/2015 documented as of this encounter Care Teams Jacquard Twine Polisher Operator Relationship Specialty Start Date End Date Jose Bowers MD [address] [place] [address] PCP - General 12/31/05 documented as of this encounter
--- OUTSIDE RECORDS SUMMARY | 2025-04-22 16:58 | XMS_ITS | Encounter Summary ---
Author Organization [facility] Address [address] [place] [address] Care Team Providers Care Central Supply Supervisor Name Role Phone Jose Bowers MD Primary Care Provider Unavailab le Encounter Details Date Type Department Care Team (Late st Contact Info) Description 10/02/2006 Outpatient Historical [facility] Physical Med and Rehab- [place] [address] [place] [phone] Jose Bowers MD [address] [place] [address] Paraplegia (CMS/HCC) (Primary Dx) Social History Tobacco Use Types Packs/Day Years Used Date Smoking Tobacco: Never Assessed Comments Unknown Sex and Gender Information Value Date Recorded Sex Assigned at Not on file Legal Sex Female 6:28 AM CARTON AND CAN SUPPLY SUPERVISOR Gender Identity Not on file Sexual Orientation Not on file documented as of this encounter Plan of Treatment Not on file documented as of this encounter Visit Diagnoses Diagnosis Paraplegia- Primary documented in this encounter Additional Health Concerns Infection Onset Date Last Indicated Resolved Time MRSA Comment:Kapil 10/26/15 10/27/2015 10/27/2015 documented as of this encounter Care Teams Central Supply Supervisor Relationship Specialty Start Date End Date Jose Bowers MD [address] [place] [address] PCP - General 12/31/05 documented as of this encounter
--- OUTSIDE RECORDS SUMMARY | 2025-04-22 16:58 | XMS_ITS | Encounter Summary ---
Author Organization [facility] Address [address] [place] [address] Care Team Providers Care Utilities Ground Worker Name Role Phone Jose Bowers MD Primary Care Provider Unavailab le Encounter Details Date Type Department Care Team (Late st Contact Info) Description 07/10/2007 Outpatient [facility] Physical Med and Rehab- [place] [address] [place] [address] Ramana Juarez MD [address] [place] [address] Social History Tobacco Use Types Packs/Day Years Used Date Smoking Tobacco: Never Assessed Comments Unknown Sex and Gender Information Value Date Recorded Sex Assigned at Not on file Legal Sex Female 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
[2025-04-22 17:08] VITALS: BP 116/58; PULSE 107; O2SAT 98
[2025-04-22 17:11] VITALS: RESP 20; O2SAT 98
[2025-04-22 17:11] LABS: INR 1.02 (0.8-1.2); Prothrombin Time 14.10 SECONDS (12.1-14.9)
[2025-04-22] MEDS: ondansetron 2 mg/ML SDV 2 mL 4 MG IVP (17:11)
[2025-04-22] MEDS: fentaNYL 50 mcg/mL INJ 2mL 100 MCG IVP (17:11)
[2025-04-22 17:12] LABS: Partial Thromboplastin Time 26.8 SECONDS (23.9-36.7)
[2025-04-22 17:30] LABS: Lactic Sepsis W/Reflex 1.8 mmol/L (0.5-2.2)
[2025-04-22 17:40] LABS: Alanine Aminotransferase 35 U/L (0-33); Albumin Level 3.5 g/dL (3.5-5.2); Alkaline Phosphatase 157 U/L (35-105); Anion Gap 22.8 (5-19); Aspartate Amino Transferase 30 U/L (0-32); Blood Urea Nitrogen 51 mg/dL (6-20); Calcium 9.5 mg/dL (8.5-10.5); Carbon Dioxide 17 mmol/L (22-29); Chloride 103 mmol/L (98-107); Creatinine Clr Calc Pharmacy 82.0335; Globulin 4.6 g/dL (1.3-4.6); Glucose 114 mg/dL (65-115); Lipase 24 U/L (13-60); Osmolality Calculated 301 mOsm/kg (285-295); Potassium 4.8 mmol/L (3.5-5.1); Sodium 138 mmol/L (136-145); Total Protein 8.1 g/dL (6.6-8.7)
[2025-04-22] MEDS: iohexol 350 mg/mL 500 mL Btl (per mL) IV (17:48)
[2025-04-22 17:52] LABS: Add Urine Microscopic? YES
[2025-04-22 19:00] VITALS: BP 107/67; PULSE 95; O2SAT 99
[2025-04-22 19:55] VITALS: BP 109/75; PULSE 94; O2SAT 98
--- NOTE | 2025-04-24 15:28 | PC.NURSE ---
BLOOD CULTURE RESULT GIVEN TO THIS RN. PROVIDER ON DUTY NOTIFIED. NO NEW ORDERS GIVEN DUE TO RESULT BEING CONTAMINANT.
== END 2025-04-22 19:56 | disposition home or self-care (01) ==
PROVIDERS: Emergency Provider Physician Assistant; PCP Family Medicine
DX: R10.84 Generalized abdominal pain (principal); Z79.01 Long term (current) use of anticoagulants
CPT/HCPCS: 36415; 74177; 80053; 81001; 83605; 83690; 85025; 85610; 85730; 87040; 87086; 87150; 87205; 96374; 96375; 99285; J2405; J3010

== ENCOUNTER 2025-04-29 15:00 | Inpatient (IN) | payer OTHER, MEDICAID, SELFPAY ==
[2025-04-29] VITALS (49 sets, daily range): BP systolic 79–142; BP diastolic 53–83; PULSE 85–98; RESP 13–35; TEMP 36.9; O2SAT 90–100; BMI 43.9
--- NOTE | 2025-04-29 15:09 | W.ED.WEAKNES ---
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 She says her Eliquis was stopped recently but then restarted. She was at wound clinic and she is having bleeding into her suprapubic catheter and GI bleeding. They were concerned she might be becoming anemic. Blood pressure was soft. She has no altered mental status. No chest pain. No abdominal pain. No vomiting. Related Data Home Medications ?Medication ?Instructions ?Recorded ?Confirmed gabapentin 600 mg tablet 600 mg PO BEDTIME 04/12/20 04/29/25 venlafaxine 150 mg 150 mg PO BEDTIME 04/12/20 04/29/25 capsule,extended release 24 hr baclofen 20 mg tablet 20 mg PO BEDTIME 02/26/23 04/29/25 trazodone 50 mg tablet 25 mg PO BEDTIME 09/24/23 04/29/25 diphenoxylate-atropine 2.5 2 tab PO QID PRN Diarrhea 02/04/25 04/29/25 mg-0.025 mg tablet loperamide 2 mg capsule 4 mg PO QID PRN Diarrhea 02/04/25 04/29/25 omeprazole 40 mg capsule,delayed 40 mg PO DAILY 02/04/25 04/29/25 release ondansetron 8 mg disintegrating 8 mg PO TID PRN Nausea And Vomiting 02/23/25 04/29/25 tablet apixaban 5 mg tablet (Eliquis) 5 mg PO BID 03/04/25 04/29/25 pantoprazole 40 mg tablet,delayed 40 mg PO BID 03/04/25 04/29/25 release ciprofloxacin HCl 250 mg tablet 250 mg PO DAILY 04/29/25 04/29/25 Previous Rx's ?Medication ?Instructions ?Recorded prothrombin time/INR test metr #30 ea 08/24/24 hydrocodone 7.5 mg-acetaminophen 1 tab PO Q8H PRN pain #20 tabs 04/22/25 325 mg tablet Allergies Allergy/AdvReac Type Severity Reaction Status Date / Time levofloxacin (From Levaquin) Allergy Unknown Unknown Verified 02/22/25 13:52 azithromycin Allergy Unknown Verified 02/22/25 13:52 Penicillins Allergy Unknown Verified 02/22/25 13:52 tramadol (From Ultram) Allergy Unknown Verified 02/22/25 13:52 vancomycin Allergy Unknown Verified 02/22/25 13:52 amoxicillin AdvReac Unknown ADR-Seizure Verified 02/22/25 13:52 Review of Systems Narrative: Constitutional symptoms: Negative except as documented in HPI. Skin symptoms: Negative except as documented in HPI. Eye symptoms: Negative except as documented in HPI. ENMT symptoms: Negative except as documented in HPI. Respiratory symptoms: Negative except as documented in HPI. Cardiovascular symptoms: Negative except as documented in HPI. Gastrointestinal symptoms: Negative except as documented in HPI. Genitourinary symptoms: Negative except as documented in HPI. Musculoskeletal symptoms: Negative except as documented in HPI. Neurologic symptoms: Negative except as documented in HPI. Psychiatric symptoms: Negative except as documented in HPI. Endocrine symptoms: Negative except as documented in HPI. [facility] ED PFSH: Medical History (Updated 04/29/25 @ 17:43 by Whitley Funez MD) Shock Groin hematoma BMI 50.0-59.9, adult Chronic anticoagulation History of angiography 2016 abdominal angiography and lower extremity angiography - normal abdominal aorta, pelvic vessels normal, all lower extremity vessels unremarkable, 3 vessel runoff below both knees History of cardiovascular stress test 07/2024 abnormalities on myocardial perfusion scanning History of sleep study 05/2017 - cpap auto-titrating 15-19 Wound of sacral region goes to wound care clinic Abscess of sacrum Parastomal hernia Ventral incisional hernia GERD (gastroesophageal reflux disease) Depression Fracture of fifth toe, right, closed History of sleep apnea sleep study in 2017 recommended auto-titrating cpap 15-[address] Complications of surgery for ovarian cyst around 2004 resulting in bowel injury Chronic venous insufficiency of lower extremity PVD (peripheral vascular disease) History of DVT (deep vein thrombosis) (2004) and pulmonary embolism 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 Chronic osteomyelitis Neurogenic bladder Chronic cystitis Surgical History (Updated 04/29/25 @ 17:43 by Whitley Funez MD) History of carpal tunnel release History of abdominal surgery (2007) excision of pelvic cysts complicated by bowel perforation, had multiple procedures including colostomy History of inferior vena caval filter placement (2004) still in place in 08/2024 History of incision and drainage (04/2019) sacral wound History of back surgery (2004) for spinal abscess x 2 History of hysterectomy (2003) S/P cholecystectomy S/P section Suprapubic catheter (~2004) following urology in [place] Family History Family/Other Diabetes Cancer CAD (coronary artery disease) Mother , at age 74 Sepsis Cancer melanoma Diabetes Father Heart disease Other Dementia Diabetes mellitus type 1 Hypertension Stroke Social History Smoking and tobacco/nicotine status: never used tobacco/nicotine Alcohol intake: never Substance/Drug Use: never Additional social history: daughter performs dressing changes twice per day, she and other family provide assistance as needed, wheelchair dependent, able to use transfer board Caregiver/support person: Yes Lives independently: Yes Marital status: Current occupational status: disabled Physical Exam Narrative: EXAM NARRATIVE: General: Alert, no acute distress. Skin: Warm, dry. Head: Normocephalic, atraumatic. Neck: Supple, trachea midline. Eye: Extraocular movements are intact. Ears, nose, mouth and throat: mucosa moist. Cardiovascular: Regular, Normal peripheral perfusion. Respiratory: Lungs are clear to auscultation, respirations are non-labored, breath sounds are equal, Symmetrical chest wall expansion. Gastrointestinal: Soft, Nontender, Non distended Musculoskeletal: Normal ROM, no deformity. Neurological: Alert and oriented, No focal neurological deficit observed. Psychiatric: Cooperative, appropriate mood & affect. Course Vital Signs: Vital signs: Vital Signs Temperature 98.5 F 04/29/25 15:00 Pulse Rate 93 04/29/25 17:00 Respiratory Rate 17 04/29/25 16:51 Blood Pressure 109/83 04/29/25 17:00 Pulse Oximetry 100 04/29/25 17:00 Oxygen Delivery Me thod Room Air 04/29/25 17:00 MDM - Weakness Medical Decision Making Medical decision making: Patient's reason for coming to the emergency room: Weakness, concern for GI bleeding Social determinants: Patient is disabled I reviewed the patient's medical record. 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 She says that been stopped and then restarted because she had a procedure. She takes baclofen. Gabapentin. She has had recent short-term prescriptions for hydrocodone. I did review the prescription monitoring program. Alternate historians: Her son is present and provides quite a bit more history. Apparently she had been admitted to [facility] and had been receiving TPN because of a fistula. They had felt that this was improved enough that they were stopping TPN and told her to start eating regularly. She has had some dry heaving. She also was at [facility] a couple days ago and had some shots in her bladder and had her suprapubic catheter changed at that time. Differential diagnosis including but not limited to and based on the above HPI, review of systems and physical exam: In a patient with upper GI bleeding would have concern for upper gi bleed from varices or ulcer. Concern for anemia. Concern for liver disease. concern for anticoagulation. Orders placed to evaluate differential diagnosis based on the above differential, HPI and physical exam Chest x-ray: No acute process. No infiltrate. No pneumothorax. This was reviewed and interpreted by myself the emergency room physician. I also reviewed the radiology report. EKG: Time 1527. Rate 97. Normal sinus rhythm, No ST-T changes, no ectopy, normal MI & QRS intervals, This was reviewed and interpreted by myself the ER physician at 1530. Of note there is no peaked T's or dysrhythmias that would be seen with high potassium. Lab Review: Laboratory results were reviewed and interpreted by myself the emergency room physician. Leukocytosis with a white count of 12,000. Hemoglobin is actually higher than previous she was down to 10-1/2 and she is back up to 12.5 today. This may be dehydration. Platelets are elevated at 491. BUN and creatinine are 82 and 1.6. The patient's baseline BUN had been increasing gradually and was up to about 58 a couple of days ago. However creatinine has always been around 0.8 and is 1.6 today. This could be indicative of upper GI bleeding. Her potassium is also elevated at 7.2. No EKG abnormalities are seen. Sodium is a bit lower than her baseline at 125. CRP is elevated at 61. Urinalysis shows too numerous to count red cells but also has 21-50 whites with 3+ bacteria. This may be colonized but with a low blood pressure and a high white count broad-spectrum antibiotics are being given. Assessment of risk: - Level of risk moderate moderate to high - Was hospitalization considered? Yes. Patient is being admitted. Reexamination: Patient has no increased work of breathing. Blood pressures remained a bit soft. No altered mental status. She has been a bit somnolent. Consultation: I spoke with Dr. Ibanez who is on-call for the hospitalist service. He agrees to admission to the ICU. Interventions not done but considered: We are attempting redraw potassium. She is very difficult stick apparently. No EKG changes. This may have been hemolyzed. I think her BUN being up to secondary to TPN. I had ordered Kayexalate, insulin, D10 and calcium gluconate. However I did an ABG and that shows potassium of 5.3. Which would not require these treatments. Assessment and plan: Weakness Acute on chronic renal failure Urinary tract infection Possible sepsis Chronic indwelling suprapubic catheter Hyponatremia Possible hyperkalemia - 1 L saline bolus. Limited fluid secondary to patient's chronic swelling she is not tachycardic. Mildly low blood pressures -Broad-spectrum antibiotics were administered. Meropenem in the emergency room -Sepsis quality measures. -Lactic acid with a reflex was ordered. -Blood cultures were ordered. ?I reevaluated the patient's volume status after sepsis fluids were given. -I discussed the patient with the hospitalist on-call who is admitting the patient. - Discussed findings and plan with patient. Answered any questions. - All laboratory values were reviewed and interpreted personally by myself, the ER physician - All imaging was reviewed and interpreted personally by myself, the ER physician. - Evaluation and treatment of this problem were appropriate in the emergency setting Critical Care: -I spent a total of 37 minutes of critical care time managing the patient, independent of any other practitioner. -The time involved in the performance of separately reportable procedures was not counted towards critical care time. Lab Data 04/29/25 15:40 04/29/25 15:40 Radiology Impressions Chest X-Ray 04/29/25 16:47 IMPRESSION: No acute thoracic abnormality. Laboratory Results WBC 12.15 10^3/uL (3.29-11.43) H 04/29/25 15:40 RBC 4.12 10^6/uL (3.85-5.65) 04/29/25 15:40 Hgb 12.50 g/dL (11.27-16.99) 04/29/25 15:40 Hct 36.9 % (36-47) 04/29/25 15:40 MCV 89.6 fl (85-98) 04/29/25 15:40 MCH 30.3 pg (27-33) 04/29/25 15:40 MCHC 33.9 g/dL (30-55) 04/29/25 15:40 RDW 13.3 % (12.1-15.1) 04/29/25 15:40 Plt Count 491 10^3/cmm (157-399) H 04/29/25 15:40 MPV 11.4 fL (7.4-10.4) H 04/29/25 15:40 Neut % (Auto) 79.7 % 04/29/25 15:40 Lymph % (Auto) 11.1 % 04/29/25 15:40 [place] % (Auto) 8.1 % 04/29/25 15:40 Eos % (Auto) 0.2 % 04/29/25 15:40 Baso % (Auto) 0.2 % 04/29/25 15:40 Neut # (Auto) 9.67 10^3/uL (1.8-7.7) H 04/29/25 15:40 Lymph # (Auto) 1.4 10^3/uL (0.8-4.8) 04/29/25 15:40 [place] # (Auto) 1.0 10^3/uL (0.2-0.9) H 04/29/25 15:40 Eos # (Auto) 0.0 10^3/uL (0.0-0.8) 04/29/25 15:40 Baso # (Auto) 0.0 10^3/uL (0.0-0.1) 04/29/25 15:40 Nucleated RBC % (auto) 0 % 04/29/25 15:40 Nucleated RBCs # 0.0 /100WBC 04/29/25 15:40 PT 14.30 SECONDS (12.1-14.9) 04/29/25 15:40 INR 1.04 (0.8-1.2) 04/29/25 15:40 APTT 27.9 SECONDS (23.9-36.7) 04/29/25 15:40 Sodium 125 mmol/L (136-145) L 04/29/25 15:40 Potassium 7.2 mmol/L (3.5-5.1) H* 04/29/25 15:40 Chloride 87 mmol/L (98-107) L 04/29/25 15:40 Carbon Dioxide 23 mmol/L (22-29) 04/29/25 15:40 Anion Gap 22.2 (5-19) H 04/29/25 15:40 BUN 82 mg/dL (6-20) H* 04/29/25 15:40 Creatinine 1.6 mg/dL (0.5-0.9) H 04/29/25 15:40 GFR Calculation 33.2 mL/min (90-130) L 04/29/25 15:40 Glucose 140 mg/dL (65-115) H 04/29/25 15:40 Calculated Osmolality 287 mOsm/kg (285-295) 04/29/25 15:40 Calcium 9.3 mg/dL (8.5-10.5) 04/29/25 15:40 Total Bilirubin 0.3 mg/dL (0.15-1.2) 04/29/25 15:40 AST 57 U/L (0-32) H 04/29/25 15:40 ALT 50 U/L (0-33) H 04/29/25 15:40 Alkaline Phosphatase 173 U/L (35-105) H 04/29/25 15:40 C-Reactive Protein 60.9 mg/L (0.0-4.9) H 04/29/25 15:40 Total Protein 8.2 g/dL (6.6-8.7) 04/29/25 15:40 Albumin 3.8 g/dL (3.5-5.2) 04/29/25 15:40 Globulin 4.4 g/dL (1.3-4.6) 04/29/25 15:40 Urine Color Red (Yellow) A 04/29/25 15:21 Urine Appearance Cloudy (CLEAR) A 04/29/25 15:21 Urine pH Not Reportable 04/29/25 15:21 Ur Specific [place] Not Reportable 04/29/25 15:21 Urine Protein Not Reportable 04/29/25 15:21 Urine Glucose (UA) Not Reportable 04/29/25 15:21 Urine Ketones Not Reportable 04/29/25 15:21 Urine Blood Not Reportable 04/29/25 15:21 Urine Nitrate Not Reportable 04/29/25 15:21 Urine Bilirubin Not Reportable 04/29/25 15:21 Urine Urobilinogen Not Reportable 04/29/25 15:21 Ur Leukocyte Esterase Not Reportable 04/29/25 15:21 Urine RBC Too numerous to cnt /hpf (0-2) H 04/29/25 15:21 Urine WBC 21-50 /hpf (0-5) H 04/29/25 15:21 Ur Squamous Epith Cells 5-10 /hpf (0-5) H 04/29/25 15:21 Amorphous Sediment 1+ /hpf 04/29/25 15:21 Urine Bacteria 3+ /hpf (NONE) H 04/29/25 15:21 Urine Mucus 1+ /hpf 04/29/25 15:21 All radiology interpretation(s) finalized by discharge Discharge Plan Discharge Patient Disposition: Admitted As Inpatient Admit Provider: Don Ibanez Clinical Impression: Acute on chronic renal failure, Acute hyponatremia, Acute hyperkalemia, Urinary tract infection, Chronic suprapubic catheter Condition: Stable Coding Level of Care Code ED Learning Disabilities Teacher for Hetal Huitron
--- OUTSIDE RECORDS SUMMARY | 2025-04-29 15:17 | XMS_ITS | Clinical Summary ---
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
--- OUTSIDE RECORDS SUMMARY | 2025-04-29 15:17 | XMS_ITS | Encounter Summary ---
Author Organization [facility] Address [address] [place] [address] Care Team Providers Care Child Welfare Consultant Name Role Phone Jose Bowers MD [...] on file Legal Sex Female 6:28 AM J[employer]IOR [employer] Gender Identity Not on file Sexual Orientation [...] GLUCOSE POC 109(H) 60 - 100 mg/dL [facility] Venous blood specimen (specimen) 04/08/2008 4:10 PM CDT 04/09/2008 7:42 AM CDT Riky Mejía MD POINT OF CARE TESTING Final Result Performing Organization Address City/State/[facility] Co de Phone Number INTERFACE SYSTEM Refer to clinic/hospital department [facility] CLIA# [id number] [facility] [place] [address] * (ABNORMAL) POC GLUCOSE (04/08/2008 11:00 AM CDT) GLUCOSE POC 122(H) 60 - 100 mg/dL [facility] Venous blood specimen (specimen) 04/08/2008 11:00 AM CDT 04/09/2008 7:42 AM CDT us Riky Mejía MD POINT OF CARE TESTING Final Result Performing Organization Address [facility] de Phone Number INTERFACE SYSTEM Refer to clinic/hospital department [facility] CLIA# [id number] [address] [place] [address] * (ABNORMAL) POC GLUCOSE (04/08/2008 5:12 AM CDT) GLUCOSE POC 124(H) 60 - 100 mg/dL [facility] Venous blood specimen (specimen) 04/08/2008 5:12 AM CDT 04/08/2008 7:16 AM CDT Riky Mejía MD POINT OF CARE TESTING Final Result Performing Organization Address [facility] de Phone Number INTERFACE SYSTEM Refer to clinic/hospital department [facility] CLIA# [id number] [address] [place] [address] * (ABNORMAL) BASIC METABOLIC PANEL (04/08/2008 4:30 AM CDT) POTASSIUM 4.2 3.5 - 5.0 mEq/L [facility] OSMOLALITY, CALCULATED 284 275 - 295 mOsm/Kg [facility] CREATININE 0.5(L) 0.7 - 1.2 mg/dL [facility] CALCIUM 8.4 8.4 - 10.5 mg/dL [facility] GLUCOSE 141(H) 70 - 110 mg/dL [facility] CHLORIDE 102 95 - 110 mEq/L [facility] ANION GAP 9 9 - 20 mEq/L [facility] SODIUM 137 136 - 145 mEq/L [facility] BUN 11 7 - 17 mg/dL [facility] CO2 30 22 - 32 mmol/l [facility] Blood specimen (specimen) 04/08/2008 4:30 AM CDT 04/08/2008 4:30 AM CDT Riky Mejía MD CHEMISTRY ORDERABLES Final Result INTERFACE SYSTEM Refer to clinic/hospital department [facility] CLIA# [id number] Formerly [facility] [place] [address] * (ABNORMAL) CBC WITH DIFFERENTIAL (04/08/2008 4:30 AM CDT) MCV 90.8 84.0 - 103.0 Fl [facility] BASOPHILS 0.2 0.0 - 1.0 % [facility] MPV 10.7 8.9 - 12.8 Fl [facility] BASOPHILS ABSOLUTE 0.0 0.0 - 0.2 K/ul [facility] HEMOGLOBIN 10.6(L) 12.0 - 16.0 g/dL [facility] MONOCYTES 8.0 2.0 - 10.0 % [facility] RDW 16.8(H) 11.0 - 14.5 % [facility] MONOCYTE ABSOLUTE 1.0(H) 0.1 - 0.6 K/ul [facility] WBC 12.7(H) 4.5 - 11.0 K/ul [facility] NEUTROPHILS 86.4(H) 42.2 - 75.2 % [facility] MCH 29.4 27.0 - 34.0 pg [facility] NEUTROPHIL ABSOLUTE 10.9(H) 2.0 - 8.0 K/ul [facility] HEMATOCRIT 32.7(L) 36.0 - 46.0 % [facility] PLATELETS 149 140 - 440 K/ul [facility] EOSINOPHIL ABSOLUTE 0.1 0.0 - 0.7 K/ul [facility] EOSINOPHILS 0.7 0.0 - 7.0 % [facility] RBC 3.60(L) 4.20 - 5.40 Mil/ul [facility] MCHC 32.4 30.0 - 35.0 g/dL [facility] LYMPHOCYTE ABSOLUTE 0.6(L) 1.2 - 4.0 K/ul [facility] LYMPHOCYTES 4.7(L) 24.0 - 44.0 % [facility] Blood specimen (specimen) 04/08/2008 4:30 AM CDT 04/08/2008 4:30 AM CDT us Riky Mejía MD HEMATOLOGY ORDERABLES Final Result Performing Organization Address City/[facility] de Phone Number INTERFACE SYSTEM Refer to clinic/hospital department [facility] CLIA# [id number] Formerly [facility] [place] [address] * BLOOD CULTURE (04/07/2008 9:56 PM CDT) FINAL REPORT No growth INTERFA CE SYSTEM Blood specimen (specimen) 04/07/2008 9:56 PM CDT 04/07/2008 9:56 PM CDT us Riky Mejía MD MICROBIOLOGY - GENERAL MINERVA ATKINSON Final Result Performing Organization Address [facility] de Phone Number INTERFACE SYSTEM Refer to clinic/hospital department * BLOOD CULTURE (04/07/2008 9:56 PM CDT) FINAL REPORT No growth INTERFA CE SYSTEM Blood specimen (specimen) 04/07/2008 9:56 PM CDT 04/07/2008 9:56 PM CDT us Riky Mejía MD MICROBIOLOGY - GENERAL MINERVA ATKINSON Final Result Performing Organization Address [facility] de Phone Number INTERFACE SYSTEM Refer to clinic/hospital department * (ABNORMAL) POC GLUCOSE (04/07/2008 8:36 PM CDT) GLUCOSE POC 159(H) 60 - 100 mg/dL [facility] Venous blood specimen (specimen) 04/07/2008 8:36 PM CDT 04/08/2008 7:22 AM CDT us Riky Mejía MD POINT OF CARE TESTING Final Result Performing Organization Address City/[facility] de Phone Number INTERFACE SYSTEM Refer to clinic/hospital department [facility] CLIA# [id number] [address] [place] [address] * (ABNORMAL) POC GLUCOSE (04/07/2008 5:39 PM CDT) GLUCOSE POC 122(H) 60 - 100 mg/dL [facility] Venous blood specimen (specimen) 04/07/2008 5:39 PM CDT 04/08/2008 7:16 AM CDT Riky Mejía MD POINT OF CARE TESTING Final Result Performing Organization Address [facility] de Phone Number INTERFACE SYSTEM Refer to clinic/hospital department [facility] CLIA# [id number] [address] [place] [address] * (ABNORMAL) POC ISTAT EG 7+ (04/07/2008 4:27 PM CDT) FIO2 4 [facility] PO2 67(L) 80 - 105 mmHg [facility] CALCIUM IONIZED 1.15 1.12 - 1.32 mmol/l [facility] HEMATOCRIT ABG 32(L) 38 - 51 % [facility] PCO2 POC 45 35 - 45 mmHg [facility] SODIUM 137(L) 138 - 146 mEq/L [facility] BASE EXCESS 7(H) -2 - 3 mmol/l [facility] PH 7.45 7.35 - 7.45 Unit [facility] O2 SATURATION 94(L) 95 - 98 % [facility] PO2 TEMP CORRECT 67(L) 80 - 105 mmHg [facility] SPECIMEN TYPE Arterial [facility] Comment: Test Performed By [id number] Pulse OX: 99 Hemoglobin calculated from Hematocrit result PCO2 TEMP CORRECT 45 35 - 45 mmHg [facility] HEMOGLOBIN POC 10.9 +/-3 g/dL 12.0 - 16.0 g/dL [facility] POTASSIUM 4.0 3.5 - 4.9 mEq/L [facility] PH TEMP CORRECT 7.45 7.35 - 7.45 Unit [facility] HCO3 (CALC) POC 31.1(H) 22.0 - 26.0 mmol/l [facility] TCO2 (CALC) POC 32(H) 23 - 27 mmol/l [facility] Arterial blood specimen (specimen) 04/07/2008 4:27 PM CDT 04/07/2008 4:30 PM CDT Riky Mejía MD POINT OF CARE TESTING COM F inal Result Performing Organization Address [facility] de Phone Number INTERFACE SYSTEM Refer to clinic/hospital department [facility] CLIA# [id number] [address] [place] [address] * (ABNORMAL) POC GLUCOSE (04/07/2008 11:30 AM CDT) GLUCOSE POC 108(H) 60 - 100 mg/dL [facility] Venous blood specimen (specimen) 04/07/2008 11:30 AM CDT 04/08/2008 7:16 AM CDT Riky Mejía MD POINT OF CARE TESTING Final Result Performing Organization Address [facility] de Phone Number INTERFACE SYSTEM Refer to clinic/hospital department [facility] CLIA# [id number] [address] [place] [address] * (ABNORMAL) POC GLUCOSE (04/07/2008 5:02 AM CDT) GLUCOSE POC 138(H) 60 - 100 mg/dL [facility] Venous blood specimen (specimen) 04/07/2008 5:02 AM CDT 04/07/2008 7:10 AM CDT Riky Mejía MD POINT OF CARE TESTING Final Result INTERFACE SYSTEM Refer to clinic/hospital department [facility] CLIA# [id number] [address] [place] [address] * (ABNORMAL) CBC WITH DIFFERENTIAL (04/07/2008 3:13 AM CDT) HEMATOCRIT 30.3(L) 36.0 - 46.0 % [facility] EOSINOPHILS 1.6 0.0 - 7.0 % [facility] PLATELETS 140 140 - 440 K/ul [facility] PERIPHERAL BLOOD SMEAR REVIEW Automated Diff [facility] EOSINOPHIL ABSOLUTE 0.2 0.0 - 0.7 K/ul [facility] RBC 3.33(L) 4.20 - 5.40 Mil/ul [facility] LYMPHOCYTES 6.7(L) 24.0 - 44.0 % [facility] MCHC 32.3 30.0 - 35.0 g/dL [facility] LYMPHOCYTE ABSOLUTE 0.8(L) 1.2 - 4.0 K/ul [facility] MCV 91.0 84.0 - 103.0 Fl [facility] MPV 11.6 8.9 - 12.8 Fl [facility] BASOPHILS ABSOLUTE 0.0 0.0 - 0.2 K/ul [facility] BASOPHILS 0.2 0.0 - 1.0 % [facility] HEMOGLOBIN 9.8(L) 12.0 - 16.0 g/dL [facility] RDW 16.9(H) 11.0 - 14.5 % [facility] MONOCYTE ABSOLUTE 1.1(H) 0.1 - 0.6 K/ul [facility] MONOCYTES 9.4 2.0 - 10.0 % [facility] WBC 11.7(H) 4.5 - 11.0 K/ul [facility] MCH 29.4 27.0 - 34.0 pg [facility] NEUTROPHIL ABSOLUTE 9.6(H) 2.0 - 8.0 K/ul [facility] NEUTROPHILS 82.1(H) 42.2 - 75.2 % [facility] Blood specimen (specimen) 04/07/2008 3:13 AM CDT 04/07/2008 3:19 AM CDT us Riky Mejía MD HEMATOLOGY ORDERABLES Final Result Performing Organization Address City/[facility] Phone Number INTERFACE SYSTEM Refer to clinic/hospital department [facility] CLIA# [id number] [address] [place] [address] * (ABNORMAL) BASIC METABOLIC PANEL (04/07/2008 3:13 AM CDT) [facility] OSMOLALITY, CALCULATED 291 275 - 295 mOsm/Kg [facility] POTASSIUM 4.1 3.5 - 5.0 mEq/L [facility] CREATININE 0.6(L) 0.7 - 1.2 mg/dL [facility] CALCIUM 8.6 8.4 - 10.5 mg/dL [facility] GLUCOSE 141(H) 70 - 110 mg/dL [facility] CHLORIDE 105 95 - 110 mEq/L [facility] SODIUM 140 136 - 145 mEq/L [facility] ANION GAP 7(L) 9 - 20 mEq/L [facility] BUN 14 7 - 17 mg/dL [facility] CO2 32 22 - 32 mmol/l [facility] Blood specimen (specimen) 04/07/2008 3:13 AM CDT 04/07/2008 3:19 AM CDT us Riky Mejía MD CHEMISTRY ORDERABLES Final Result Performing Organization Address [facility] de Phone Number INTERFACE SYSTEM Refer to clinic/hospital department [facility] CLIA# [id number] [address] [place] [address] * (ABNORMAL) POC GLUCOSE (04/06/2008 8:09 PM CDT) [facility] GLUCOSE POC 118(H) 60 - 100 mg/dL [facility] Venous blood specimen (specimen) 04/06/2008 8:09 PM CDT 04/07/2008 7:13 AM CDT Riky Mejía MD POINT OF CARE TESTING Final Result Performing Organization Address [facility] Phone Number INTERFACE SYSTEM Refer to clinic/hospital department [facility] CLIA# [id number] [address] [place] [address] * (ABNORMAL) POC GLUCOSE (04/06/2008 5:03 PM CDT) GLUCOSE POC 131(H) 60 - 100 mg/dL [facility] Venous blood specimen (specimen) 04/06/2008 5:03 PM CDT 04/07/2008 7:10 AM CDT Riky Mejía MD POINT OF CARE TESTING Final Result Performing Organization Address [facility] Phone Number INTERFACE SYSTEM Refer to clinic/hospital department [facility] CLIA# [id number] [address] [place] [address] * (ABNORMAL) POC GLUCOSE (04/06/2008 10:59 AM CDT) GLUCOSE POC 128(H) 60 - 100 mg/dL [facility] Venous blood specimen (specimen) 04/06/2008 10:59 AM CDT 04/07/2008 7:10 AM CDT Riky Mejía MD POINT OF CARE TESTING Final Result Performing Organization Address [facility] de Phone Number INTERFACE SYSTEM Refer to clinic/hospital department [facility] CLIA# [id number] [address] [place] [address] * XR CHEST PA OR AP (04/06/2008 [...] GLUCOSE POC 126(H) 60 - 100 mg/dL [facility] Venous blood specimen (specimen) 04/06/2008 6:02 AM CDT 04/06/2008 7:01 AM CDT Riky Mejía MD POINT OF CARE TESTING Final Result INTERFACE SYSTEM Refer to clinic/hospital department [facility] CLIA# [id number] [address] [place] [address] * (ABNORMAL) CBC WITH DIFFERENTIAL (04/06/2008 3:55 AM CDT) NEUTROPHILS 81.1(H) 42.2 - 75.2 % [facility] MCH 29.1 27.0 - 34.0 pg [facility] NEUTROPHIL ABSOLUTE 8.9(H) 2.0 - 8.0 K/ul [facility] HEMATOCRIT 31.3(L) 36.0 - 46.0 % [facility] PLATELETS 122(L) 140 - 440 K/ul [facility] EOSINOPHIL ABSOLUTE 0.3 0.0 - 0.7 K/ul [facility] EOSINOPHILS 3.1 0.0 - 7.0 % [facility] RBC 3.47(L) 4.20 - 5.40 Mil/ul [facility] MCHC 32.3 30.0 - 35.0 g/dL [facility] LYMPHOCYTE ABSOLUTE 0.9(L) 1.2 - 4.0 K/ul [facility] LYMPHOCYTES 8.4(L) 24.0 - 44.0 % [facility] MCV 90.2 84.0 - 103.0 Fl [facility] BASOPHILS 0.2 0.0 - 1.0 % [facility] MPV 11.8 8.9 - 12.8 Fl [facility] BASOPHILS ABSOLUTE 0.0 0.0 - 0.2 K/ul [facility] HEMOGLOBIN 10.1(L) 12.0 - 16.0 g/dL [facility] MONOCYTES 7.2 2.0 - 10.0 % [facility] RDW 17.0(H) 11.0 - 14.5 % [facility] MONOCYTE ABSOLUTE 0.8(H) 0.1 - 0.6 K/ul [facility] WBC 11.0 4.5 - 11.0 K/ul [facility] Blood specimen (specimen) 04/06/2008 3:55 AM CDT 04/06/2008 4:00 AM CDT Marquis Scott MD HEMATOLOGY ORDERABLES Final Res ult INTERFACE SYSTEM Refer to clinic/hospital department [facility] CLIA# [id number] [facility] [place] [address] * (ABNORMAL) RENAL FUNCTION PANEL (04/06/2008 3:55 AM CDT) GLUCOSE 218(H) 70 - 110 mg/dL [facility] OSMOLALITY, CALCULATED 295 275 - 295 mOsm/Kg [facility] CHLORIDE 106 95 - 110 mEq/L [facility] ALBUMIN 3.0(L) 3.5 - 5.0 g/dL [facility] SODIUM 138 136 - 145 mEq/L [facility] BUN 22(H) 7 - 17 mg/dL [facility] CO2 30 22 - 32 mmol/l [facility] PHOSPHORUS 2.0(L) 2.5 - 4.6 mg/dL [facility] POTASSIUM 4.7 3.5 - 5.0 mEq/L [facility] ANION GAP 7(L) 9 - 20 mEq/L [facility] CREATININE 0.6(L) 0.7 - 1.2 mg/dL [facility] CALCIUM 8.2(L) 8.4 - 10.5 mg/dL [facility] Blood specimen (specimen) 04/06/2008 3:55 AM CDT 04/06/2008 4:00 AM CDT Marquis Scott MD CHEMISTRY ORDERABLES Final Resu lt Performing Organization Address City/[facility] Co de Phone Number INTERFACE SYSTEM Refer to clinic/hospital department [facility] CLIA# [id number] [address] [place] [address] * (ABNORMAL) POC GLUCOSE (04/05/2008 8:20 PM CDT) GLUCOSE POC 114(H) 60 - 100 mg/dL [facility] Venous blood specimen (specimen) 04/05/2008 8:20 PM CDT 04/06/2008 7:01 AM CDT Riky Mejía MD POINT OF CARE TESTING Final Result Performing Organization Address [facility] Phone Number INTERFACE SYSTEM Refer to clinic/hospital department [facility] CLIA# [id number] [address] [place] [address] * (ABNORMAL) POC GLUCOSE (04/05/2008 4:50 PM CDT) GLUCOSE POC 118(H) 60 - 100 mg/dL [facility] Venous blood specimen (specimen) 04/05/2008 4:50 PM CDT 04/06/2008 7:01 AM CDT us Riky Mejía MD POINT OF CARE TESTING Final Result Performing Organization Address [facility] Phone Number INTERFACE SYSTEM Refer to clinic/hospital department [facility] CLIA# [id number] [address] [place] [address] * IV CATHETER CULTURE (04/05/2008 4:00 PM CDT) FINAL REPORT No growth INTERFA CE SYSTEM 04/05/2008 4:00 PM CDT 04/05/2008 4:00 PM CDT Riky Mejía MD MICROBIOLOGY - GENERAL MINERVA ATKINSON Final Result Performing Organization Address [facility] Phone Number INTERFACE SYSTEM Refer to [...] GLUCOSE POC 120(H) 60 - 100 mg/dL [facility] Venous blood specimen (specimen) 04/05/2008 11:06 AM CDT 04/06/2008 7:01 AM CDT Riky Mejía MD POINT OF CARE TESTING Final Result INTERFACE SYSTEM Refer to clinic/hospital department [facility] CLIA# [id number] [address] [place] [address] * (ABNORMAL) POC GLUCOSE (04/05/2008 7:26 AM CDT) GLUCOSE POC 120(H) 60 - 100 mg/dL [facility] Venous blood specimen (specimen) 04/05/2008 7:26 AM CDT 04/06/2008 7:01 AM CDT Riky Mejía MD POINT OF CARE TESTING Final Result INTERFACE SYSTEM Refer to clinic/hospital department [facility] CLIA# [id number] [address] [place] [address] * PT AND APTT (04/05/2008 3:04 AM CDT) PTT 24.1 22.5 - 36.5 Secs [facility] Comment: Therapeutic Range: Hi-level PE/DVT heparin protocol 80.1 -95.0 sec Lo-level PE/DVT heparin protocol 67.1 - 80.0 sec Cardiac Heparin Protocol 67.1 - 85.0 sec Neuro Heparin Protocol 67.1 - 80.0 sec As of 09/25/2007 note change in APTT Normal Range. PROTIME 14.8 12.8 - 15.8 Secs [facility] Comment:As of 2007 not e change in normal range. INR 1.0 [facility] Comment: Expected Values for INR: DVT/PE [...] Anticoagulation available from the pharmacy [facility] [phone] Blood specimen (specimen) 04/05/2008 3:04 AM CDT 04/05/2008 3:08 AM CDT Riky Mejía MD HEMATOLOGY ORDERABLES Edite d Performing Organization Address [facility] Phone Number INTERFACE SYSTEM Refer to clinic/hospital department [facility] CLIA# [id number] [address] [place] [address] * MAGNESIUM LEVEL (04/05/2008 3:04 AM CDT) MAGNESIUM 2.1 1.7 - 2.4 mg/dL [facility] Blood specimen (specimen) 04/05/2008 3:04 AM CDT 04/05/2008 3:08 AM CDT us Riky Mejía MD CHEMISTRY ORDERABLES Final Result Performing Organization Address [facility] Phone Number INTERFACE SYSTEM Refer to clinic/hospital department [facility] CLIA# [id number] [address] [place] [address] * (ABNORMAL) PHOSPHORUS (04/05/2008 3:04 AM CDT) PHOSPHORUS 1.7(L) 2.5 - 4.6 mg/dL [facility] Blood specimen (specimen) 04/05/2008 3:04 AM CDT 04/05/2008 3:08 AM CDT Riky Mejía MD CHEMISTRY ORDERABLES Final Result Performing Organization Address [facility] Phone Number INTERFACE SYSTEM Refer to clinic/hospital department [facility] CLIA# [id number] [address] [place] [address] * (ABNORMAL) BASIC METABOLIC PANEL (04/05/2008 3:04 AM CDT) CO2 30 22 - 32 mmol/l [facility] OSMOLALITY, CALCULATED 307(H) 275 - 295 mOsm/Kg [facility] POTASSIUM 3.9 3.5 - 5.0 mEq/L [facility] CREATININE 0.7 0.7 - 1.2 mg/dL [facility] CALCIUM 8.2(L) 8.4 - 10.5 mg/dL [facility] GLUCOSE 126(H) 70 - 110 mg/dL [facility] CHLORIDE 112(H) 95 - 110 mEq/L [facility] SODIUM 146(H) 136 - 145 mEq/L [facility] ANION GAP 8(L) 9 - 20 mEq/L [facility] BUN 32(H) 7 - 17 mg/dL [facility] Blood specimen (specimen) 04/05/2008 3:04 AM CDT 04/05/2008 3:08 AM CDT us Riky Mejía MD CHEMISTRY ORDERABLES Final Result Performing Organization Address City/State/[facility] Co de Phone Number INTERFACE SYSTEM Refer to clinic/hospital department [facility] CLIA# [id number] [address] [place] [address] * (ABNORMAL) CBC WITH DIFFERENTIAL (04/05/2008 3:04 AM CDT) EOSINOPHIL ABSOLUTE 0.2 0.0 - 0.7 K/ul [facility] EOSINOPHILS 2.2 0.0 - 7.0 % [facility] PERIPHERAL BLOOD SMEAR REVIEW Automated Diff [facility] RBC 3.51(L) 4.20 - 5.40 Mil/ul [facility] MCHC 33.2 30.0 - 35.0 g/dL [facility] LYMPHOCYTE ABSOLUTE 1.1(L) 1.2 - 4.0 K/ul [facility] LYMPHOCYTES 9.6(L) 24.0 - 44.0 % [facility] MCV 88.3 84.0 - 103.0 Fl [facility] BASOPHILS 0.1 0.0 - 1.0 % [facility] MPV 11.0 8.9 - 12.8 Fl [facility] BASOPHILS ABSOLUTE 0.0 0.0 - 0.2 K/ul [facility] HEMOGLOBIN 10.3(L) 12.0 - 16.0 g/dL [facility] MONOCYTES 8.4 2.0 - 10.0 % [facility] RDW 17.1(H) 11.0 - 14.5 % [facility] MONOCYTE ABSOLUTE 0.9(H) 0.1 - 0.6 K/ul [facility] WBC 10.9 4.5 - 11.0 K/ul [facility] NEUTROPHILS 79.7(H) 42.2 - 75.2 % [facility] MCH 29.3 27.0 - 34.0 pg [facility] NEUTROPHIL ABSOLUTE 8.7(H) 2.0 - 8.0 K/ul [facility] HEMATOCRIT 31.0(L) 36.0 - 46.0 % [facility] PLATELETS 91(L) 140 - 440 K/ul [facility] Blood specimen (specimen) 04/05/2008 3:04 AM CDT 04/05/2008 3:08 AM CDT Riky Mejía MD HEMATOLOGY ORDERABLES Final Result Performing Organization Address City/State/[facility] Co de Phone Number INTERFACE SYSTEM Refer to clinic/hospital department [facility] CLIA# [id number] [address] [place] [id number] * (ABNORMAL) RENAL FUNCTION PANEL (04/04/2008 5:04 PM CDT) ANION GAP 8(L) 9 - 20 mEq/L [facility] PHOSPHORUS 1.9(L) 2.5 - 4.6 mg/dL [facility] ALBUMIN 2.9(L) 3.5 - 5.0 g/dL [facility] CHLORIDE 117(H) 95 - 110 mEq/L [facility] CREATININE 1.2 0.7 - 1.2 mg/dL [facility] SODIUM 147(H) 136 - 145 mEq/L [facility] GLUCOSE 124(H) 70 - 110 mg/dL [facility] CO2 26 22 - 32 mmol/l [facility] CALCIUM 7.5(L) 8.4 - 10.5 mg/dL [facility] POTASSIUM 3.5 3.5 - 5.0 mEq/L [facility] OSMOLALITY, CALCULATED 309(H) 275 - 295 mOsm/Kg [facility] BUN 34(H) 7 - 17 mg/dL [facility] Blood specimen (specimen) 04/04/2008 5:04 PM CDT 04/04/2008 5:06 PM CDT us Riky Mejía MD CHEMISTRY ORDERABLES Edited INTERFACE SYSTEM Refer to clinic/hospital department [facility] CLIA# [id number] [address] [place] [id number] * (ABNORMAL) CBC WITH DIFFERENTIAL (04/04/2008 5:04 PM CDT) HEMOGLOBIN 9.6(L) 12.0 - 16.0 g/dL [facility] RDW 16.8(H) 11.0 - 14.5 % [facility] MONOCYTE ABSOLUTE 0.9(H) 0.1 - 0.6 K/ul [facility] MONOCYTES 10.0 2.0 - 10.0 % [facility] WBC 9.4 4.5 - 11.0 K/ul [facility] MCH 29.0 27.0 - 34.0 pg [facility] NEUTROPHIL ABSOLUTE 7.3 2.0 - 8.0 K/ul [facility] NEUTROPHILS 77.7(H) 42.2 - 75.2 % [facility] HEMATOCRIT 28.9(L) 36.0 - 46.0 % [facility] EOSINOPHILS 1.1 0.0 - 7.0 % [facility] PLATELETS 83(L) 140 - 440 K/ul [facility] PERIPHERAL BLOOD SMEAR REVIEW Automated Diff [facility] EOSINOPHIL ABSOLUTE 0.1 0.0 - 0.7 K/ul [facility] RBC 3.31(L) 4.20 - 5.40 Mil/ul [facility] LYMPHOCYTES 11.1(L) 24.0 - 44.0 % [facility] MCHC 33.2 30.0 - 35.0 g/dL [facility] LYMPHOCYTE ABSOLUTE 1.0(L) 1.2 - 4.0 K/ul [facility] MCV 87.3 84.0 - 103.0 Fl [facility] MPV 11.6 8.9 - 12.8 Fl [facility] BASOPHILS ABSOLUTE 0.0 0.0 - 0.2 K/ul [facility] BASOPHILS 0.1 0.0 - 1.0 % [facility] Blood specimen (specimen) 04/04/2008 5:04 PM CDT 04/04/2008 5:06 PM CDT us Riky Mejía MD HEMATOLOGY ORDERABLES Final Result Performing Organization Address City/State/[facility] Co de Phone Number INTERFACE SYSTEM Refer to clinic/hospital department [facility] CLIA# [id number] [facility] [place] [address] * (ABNORMAL) POC ISTAT EG 7+ (04/04/2008 9:15 AM CDT) SODIUM 145 138 - 146 mEq/L [facility] BASE EXCESS 0 -2 - 3 mmol/l [facility] PH 7.39 7.35 - 7.45 Unit [facility] O2 SATURATION 94(L) 95 - 98 % [facility] PO2 TEMP CORRECT 70(L) 80 - 105 mmHg [facility] PCO2 TEMP CORRECT 42 35 - 45 mmHg [facility] HEMOGLOBIN POC 8.8 +/-3 g/dL 12.0 - 16.0 g/dL [facility] POTASSIUM 3.2(L) 3.5 - 4.9 mEq/L [facility] PH TEMP CORRECT 7.39 7.35 - 7.45 Unit [facility] HCO3 (CALC) POC 25.0 22.0 - 26.0 mmol/l [facility] TCO2 (CALC) POC 26 23 - 27 mmol/l [facility] SPECIMEN TYPE Arterial [facility] Comment: Test Performed By [id number] Pulse OX: 94 Hemoglobin calculated from Hematocrit result PO2 70(L) 80 - 105 mmHg [facility] CALCIUM IONIZED 1.12 1.12 - 1.32 mmol/l [facility] HEMATOCRIT ABG 26(L) 38 - 51 % [facility] PCO2 POC 42 35 - 45 mmHg [facility] Arterial blood specimen (specimen) 04/04/2008 9:15 AM CDT 04/04/2008 9:18 AM CDT Riky Mejía MD POINT OF CARE TESTING COM F inal Result Performing Organization Address [facility] de Phone Number INTERFACE SYSTEM Refer to clinic/hospital department [facility] CLIA# [id number] [address] [place] [address] * PTT (04/04/2008 4:19 AM CDT) PTT 26.4 22.5 - 36.5 Secs [facility] Comment: Therapeutic Range: Hi-level PE/DVT heparin [...] ORDERABLES Final Result Performing Organization Address City/[facility]/ZIP Co de Phone Number INTERFACE SYSTEM Refer to clinic/hospital department [facility] CLIA# [id number] [address] [place] [address] * PROTIME-INR (04/04/2008 4:19 AM CDT) PROTIME 15.2 12.8 - 15.8 Secs [facility] Comment:As of 2007 not e change in normal range. INR 1.1 [facility] Comment: Expected Values for INR: DVT/PE [...] from the pharmacy Jolene Ramirez, Pharm D. [phone] Blood specimen (specimen) 04/04/2008 4:19 AM CDT 04/04/2008 4:23 AM CDT Riky Mejía MD HEMATOLOGY ORDERABLES Final Result Performing Organization Address [facility] Phone Number INTERFACE SYSTEM Refer to clinic/hospital department [facility] CLIA# [id number] [address] [place] [address] * (ABNORMAL) PHOSPHORUS (04/04/2008 4:19 AM CDT) PHOSPHORUS 1.9(L) 2.5 - 4.6 mg/dL [facility] Blood specimen (specimen) 04/04/2008 4:19 AM CDT 04/04/2008 4:23 AM CDT Riky Mejía MD CHEMISTRY ORDERABLES Final Result Performing Organization Address [facility] de Phone Number INTERFACE SYSTEM Refer to clinic/hospital department [facility] CLIA# [id number] [address] [place] [address] * MAGNESIUM LEVEL (04/04/2008 4:19 AM CDT) [facility] MAGNESIUM 1.8 1.7 - 2.4 mg/dL [facility] Blood specimen (specimen) 04/04/2008 4:19 AM CDT 04/04/2008 4:23 AM CDT Riky Mejía MD CHEMISTRY ORDERABLES Final Result Performing Organization Address [facility] de Phone Number INTERFACE SYSTEM Refer to clinic/hospital department [facility] CLIA# [id number] [address] [place] [address] * (ABNORMAL) COMPREHENSIVE METABOLIC PANEL (04/04/2008 4:19 AM CDT) [facility] ALBUMIN/GLOBULIN RATIO 1.4 1.0 - 2.3 [facility] POTASSIUM 3.3(L) 3.5 - 5.0 mEq/L [facility] ANION GAP 11 9 - 20 mEq/L [facility] ALBUMIN 3.0(L) 3.5 - 5.0 g/dL [facility] CREATININE 2.1(H) 0.7 - 1.2 mg/dL [facility] ALT 20 4 - 36 IU/L [facility] CALCIUM 8.3(L) 8.4 - 10.5 mg/dL [facility] GLUCOSE 124(H) 70 - 110 mg/dL [facility] ALKALINE PHOSPHATASE 42 25 - 100 U/L [facility] CHLORIDE 111(H) 95 - 110 mEq/L [facility] OSMOLALITY, CALCULATED 310(H) 275 - 295 mOsm/Kg [facility] GLOBULIN (CALC) 2.2(L) 2.4 - 3.9 g/dL [facility] TOTAL PROTEIN 5.2(L) 6.3 - 8.2 g/dL [facility] SODIUM 146(H) 136 - 145 mEq/L [facility] BILIRUBIN TOTAL 0.9 0.3 - 1.2 mg/dL [facility] CO2 27 22 - 32 mmol/l [facility] BUN 42(H) 7 - 17 mg/dL [facility] AST 104(H) 8 - 33 U/L [facility] Blood specimen (specimen) 04/04/2008 4:19 AM CDT 04/04/2008 4:23 AM CDT Riky Mejía MD CHEMISTRY ORDERABLES Final Result INTERFACE SYSTEM Refer to clinic/hospital department [facility] CLIA# [id number] [address] [place] [address] * (ABNORMAL) CBC WITH DIFFERENTIAL (04/04/2008 4:19 AM CDT) HEMATOCRIT 28.7(L) 36.0 - 46.0 % [facility] EOSINOPHILS 0.2 0.0 - 7.0 % [facility] PLATELETS 83(L) 140 - 440 K/ul [facility] PERIPHERAL BLOOD SMEAR REVIEW Automated Diff [facility] EOSINOPHIL ABSOLUTE 0.0 0.0 - 0.7 K/ul [facility] RBC 3.33(L) 4.20 - 5.40 Mil/ul [facility] LYMPHOCYTES 12.1(L) 24.0 - 44.0 % [facility] MCHC 33.4 30.0 - 35.0 g/dL [facility] LYMPHOCYTE ABSOLUTE 1.1(L) 1.2 - 4.0 K/ul [facility] MCV 86.2 84.0 - 103.0 Fl [facility] MPV 11.5 8.9 - 12.8 Fl [facility] BASOPHILS ABSOLUTE 0.0 0.0 - 0.2 K/ul [facility] BASOPHILS 0.2 0.0 - 1.0 % [facility] HEMOGLOBIN 9.6(L) 12.0 - 16.0 g/dL [facility] RDW 16.1(H) 11.0 - 14.5 % [facility] MONOCYTE ABSOLUTE 1.0(H) 0.1 - 0.6 K/ul [facility] MONOCYTES 10.5(H) 2.0 - 10.0 % [facility] WBC 9.0 4.5 - 11.0 K/ul [facility] MCH 28.8 27.0 - 34.0 pg [facility] NEUTROPHIL ABSOLUTE 6.9 2.0 - 8.0 K/ul [facility] NEUTROPHILS 77.0(H) 42.2 - 75.2 % [facility] Blood specimen (specimen) 04/04/2008 4:19 AM CDT 04/04/2008 4:23 AM CDT us Riky Mejía MD HEMATOLOGY ORDERABLES Final Result INTERFACE SYSTEM Refer to clinic/hospital department [facility] CLIA# [id number] [address] [place] [address] * (ABNORMAL) POC ISTAT EG 7+ (04/04/2008 4:07 AM CDT) POTASSIUM 3.1(L) 3.5 - 4.9 mEq/L [facility] PH TEMP CORRECT 7.45 7.35 - 7.45 Unit [facility] HCO3 (CALC) POC 24.5 22.0 - 26.0 mmol/l [facility] TCO2 (CALC) POC 26 23 - 27 mmol/l [facility] FIO2 50 [facility] PO2 138(H) 80 - 105 mmHg [facility] CALCIUM IONIZED 1.10(L) 1.12 - 1.32 mmol/l [facility] HEMATOCRIT ABG 25(L) 38 - 51 % [facility] PCO2 POC 35 35 - 45 mmHg [facility] SODIUM 143 138 - 146 mEq/L [facility] BASE EXCESS 1 -2 - 3 mmol/l [facility] PH 7.45 7.35 - 7.45 Unit [facility] O2 SATURATION 99(H) 95 - 98 % [facility] PO2 TEMP CORRECT 138(H) 80 - 105 mmHg [facility] SPECIMEN TYPE Arterial [facility] Comment: Test Performed By [id number] Tidal volume: 500 PEEP: 10 Rate: 14 Pulse OX: 100 Hemoglobin calculated from Hematocrit result PCO2 TEMP CORRECT 35 35 - 45 mmHg [facility] HEMOGLOBIN POC 8.5 +/-3 g/dL 12.0 - 16.0 g/dL [facility] Arterial blood specimen (specimen) 04/04/2008 4:07 AM CDT 04/04/2008 5:13 AM CDT us Riky Mejía MD POINT OF CARE TESTING COM F inal Result INTERFACE SYSTEM Refer to clinic/hospital department [facility] CLIA# [id number] [facility] [place] [address] * MRSA CULTURE (04/03/2008 9:03 PM CDT) FINAL REPORT Culture screen for MRSA negative INTERFACE SYSTEM 04/03/2008 9:03 PM CDT 04/03/2008 9:03 PM CDT us Riky Mejía MD MICROBIOLOGY - GENERAL [place] [facility] Final Result Performing Organization Address City/[facility]/ZIP Co de Phone Number INTERFACE [...] CALCIUM IONIZED 1.00(L) 1.12 - 1.32 mmol/l [facility] HEMATOCRIT ABG 24(L) 38 - 51 % [facility] PCO2 POC 36 35 - 45 mmHg [facility] SODIUM 144 138 - 146 mEq/L [facility] BASE EXCESS 0 -2 - 3 mmol/l [facility] PH 7.44 7.35 - 7.45 Unit [facility] O2 SATURATION 98 95 - 98 % [facility] PO2 TEMP CORRECT 101 80 - 105 mmHg [facility] SPECIMEN TYPE Arterial [facility] Comment: Test Performed By [id number] Tidal volume: 500 PEEP: 10 Rate: 16 Pulse OX: 96 Hemoglobin calculated from Hematocrit result PCO2 TEMP CORRECT 36 35 - 45 mmHg [facility] HEMOGLOBIN POC 8.2 +/-3 g/dL 12.0 - 16.0 g/dL [facility] POTASSIUM 3.2(L) 3.5 - 4.9 mEq/L [facility] PH TEMP CORRECT 7.44 7.35 - 7.45 Unit [facility] HCO3 (CALC) POC 23.9 22.0 - 26.0 mmol/l [facility] TCO2 (CALC) POC 25 23 - 27 mmol/l [facility] FIO2 60 [facility] PO2 101 80 - 105 mmHg [facility] Arterial blood specimen (specimen) 04/03/2008 8:35 PM CDT 04/03/2008 8:48 PM CDT Riky Mejía MD POINT OF CARE TESTING COM F inal Result Performing Organization Address [facility] de Phone Number INTERFACE SYSTEM Refer to clinic/hospital department [facility] CLIA# [id number] [address] [place] [address] * TYPE AND CROSSMATCH (04/03/2008 8:13 PM CDT) [facility] BLOOD BANK PRODUCT INTERFACE SYSTEM Blood specimen (specimen) 04/03/2008 8:13 PM CDT 04/03/2008 8:17 PM CDT Riky Mejía MD BLOOD BANK ORDERABLES Edite d Performing Organization Address [facility] Phone Number INTERFACE SYSTEM Refer to clinic/hospital department * (ABNORMAL) CBC WITH DIFFERENTIAL (04/03/2008 8:13 PM CDT) HEMATOCRIT 26.9(L) 36.0 - 46.0 % [facility] PLATELETS 102(L) 140 - 440 K/ul [facility] EOSINOPHIL ABSOLUTE 0.0 0.0 - 0.7 K/ul [facility] EOSINOPHILS 0.1 0.0 - 7.0 % [facility] RBC 3.13(L) 4.20 - 5.40 Mil/ul [facility] MCHC 33.8 30.0 - 35.0 g/dL [facility] LYMPHOCYTE ABSOLUTE 1.1(L) 1.2 - 4.0 K/ul [facility] LYMPHOCYTES 12.2(L) 24.0 - 44.0 % [facility] MCV 85.9 84.0 - 103.0 Fl [facility] BASOPHILS 0.1 0.0 - 1.0 % [facility] MPV 11.7 8.9 - 12.8 Fl [facility] BASOPHILS ABSOLUTE 0.0 0.0 - 0.2 K/ul [facility] HEMOGLOBIN 9.1(L) 12.0 - 16.0 g/dL [facility] MONOCYTES 11.9(H) 2.0 - 10.0 % [facility] RDW 16.2(H) 11.0 - 14.5 % [facility] MONOCYTE ABSOLUTE 1.1(H) 0.1 - 0.6 K/ul [facility] WBC 9.0 4.5 - 11.0 K/ul [facility] NEUTROPHILS 75.7(H) 42.2 - 75.2 % [facility] MCH 29.1 27.0 - 34.0 pg [facility] NEUTROPHIL ABSOLUTE 6.8 2.0 - 8.0 K/ul [facility] Blood specimen (specimen) 04/03/2008 8:13 PM CDT 04/03/2008 8:17 PM CDT us Riky Mejía MD HEMATOLOGY ORDERABLES Final Result INTERFACE SYSTEM Refer to clinic/hospital department [facility]# [id number] [address] [place] [address] * PTT (04/03/2008 8:13 PM CDT) PTT 28.1 22.5 - 36.5 Secs [facility] Comment: Therapeutic Range: Hi-level PE/DVT heparin protocol 80.1 -95.0 sec Lo-level PE/DVT heparin protocol 67.1 - 80.0 sec Cardiac Heparin Protocol 67.1 - 85.0 sec Neuro Heparin Protocol 67.1 - 80.0 sec As of 09/25/2007 note change in APTT Normal Range. Blood specimen (specimen) 04/03/2008 8:13 PM CDT 04/03/2008 8:17 PM CDT Riky Mejía MD HEMATOLOGY ORDERABLES Final Result Performing Organization Address [facility] Phone Number INTERFACE SYSTEM Refer to clinic/hospital department [facility] CLIA# [id number] [address] [place] [address] * (ABNORMAL) PROTIME-INR (04/03/2008 8:13 PM CDT) INR 1.2 [facility] Comment: Expected Values for INR: DVT/PE [...] Anticoagulation available from the pharmacy Catrachito Pham [phone] PROTIME 16.3(H) 12.8 - 15.8 Secs [facility] Comment:As of 2007 not e change in normal range. Blood specimen (specimen) 04/03/2008 8:13 PM CDT 04/03/2008 8:17 PM CDT Riky Mejía MD HEMATOLOGY ORDERABLES Final Result Performing Organization Address [facility] de Phone Number INTERFACE SYSTEM Refer to clinic/hospital department [facility] CLIA# [id number] [address] [place] [address] * ANTIBODY SCREEN (04/03/2008 8:13 PM CDT) [facility] ANTIBODY SCREEN Negative [facility] Blood specimen (specimen) 04/03/2008 8:13 PM CDT 04/03/2008 8:17 PM CDT us Riky Mejía MD BLOOD BANK ORDERABLES Final Result Performing Organization Address [facility] de Phone Number INTERFACE SYSTEM Refer to clinic/hospital department [facility] CLIA# [id number] [address] [place] [address] * ABORH TYPING (04/03/2008 8:13 PM CDT) [facility] ABO/RH TYPE O Positive [facility] Blood specimen (specimen) 04/03/2008 8:13 PM CDT 04/03/2008 8:17 PM CDT us Riky Mejía MD BLOOD BANK ORDERABLES Final Result Performing Organization Address [facility] de Phone Number INTERFACE SYSTEM Refer to clinic/hospital department [facility] CLIA# [id number] [address] [place] [address] * (ABNORMAL) COMPREHENSIVE METABOLIC PANEL (04/03/2008 8:13 PM CDT) [facility] GLUCOSE 140(H) 70 - 110 mg/dL [facility] ALKALINE PHOSPHATASE 40 25 - 100 U/L [facility] CHLORIDE 112(H) 95 - 110 mEq/L [facility] AST 97(H) 8 - 33 U/L [facility] GLOBULIN (CALC) 1.9(L) 2.4 - 3.9 g/dL [facility] TOTAL PROTEIN 4.9(L) 6.3 - 8.2 g/dL [facility] SODIUM 146(H) 136 - 145 mEq/L [facility] ANION GAP 11 9 - 20 mEq/L [facility] CO2 26 22 - 32 mmol/l [facility] BUN 47(H) 7 - 17 mg/dL [facility] ALT 19 4 - 36 IU/L [facility] ALBUMIN/GLOBULIN RATIO 1.6 1.0 - 2.3 [facility] POTASSIUM 3.2(L) 3.5 - 5.0 mEq/L [facility] OSMOLALITY, CALCULATED 312(H) 275 - 295 mOsm/Kg [facility] ALBUMIN 3.0(L) 3.5 - 5.0 g/dL [facility] CREATININE 2.9(H) 0.7 - 1.2 mg/dL [facility] BILIRUBIN TOTAL 0.6 0.3 - 1.2 mg/dL [facility] CALCIUM 7.6(L) 8.4 - 10.5 mg/dL [facility] Blood specimen (specimen) 04/03/2008 8:13 PM CDT 04/03/2008 8:17 PM CDT Riky Mejía MD CHEMISTRY ORDERABLES Edited INTERFACE SYSTEM Refer to clinic/hospital department [facility] CLIA# [id number] [address] [place] [address] documented in this encounter Visit Diagnoses Not on filedocumented in this encounter Additional Health Concerns Infection Onset Date Last Indicated Resolved Time MRSA Comment:Kapil 10/26/15 10/27/2015 10/27/2015 documented as of this encounter Care Teams Child Welfare Consultant Relationship Specialty Start Date End Date Jose Bowers MD [address] [place] [address] PCP - General 12/31/05 documented as of this encounter
--- OUTSIDE RECORDS SUMMARY | 2025-04-29 15:17 | XMS_ITS | Encounter Summary ---
Author Organization [facility] Address [address] [place] [address] Care Team Providers Care Housing Court Judge Name Role Phone Jose Bowers MD Primary Care Provider Unavailab le Encounter Details Date Type Department Care Team (Late st Contact Info) Description 07/10/2007 Outpatient [facility] Physical Med and Rehab- [place] [address] [place] [address] Ramana Juarez MD [address] [place] [address] Social History Tobacco Use Types Packs/Day Years Used Date Smoking Tobacco: Never Assessed Comments Unknown Sex and Gender Information Value Date Recorded Sex Assigned at Not on file Legal Sex Female 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
--- OUTSIDE RECORDS SUMMARY | 2025-04-29 15:17 | XMS_ITS | Encounter Summary ---
Author Organization [facility] Address [address] [place] [address] Care Team Providers Care Churn Driller Helper Name Role Phone Jose Bowers MD Primary Care Provider Unavailab le Encounter Details Date Type Department Care Team (Late st Contact Info) Description 11/01/2005 Outpatient Historical [facility] Physical Med and Rehab- [place] [address] [place] [phone] Jose Bowers MD [address] [place] [address] Unspecified Paralysis (CMS/HCC) (Primary Dx); Neurogenic Bladder, NOS Social History Tobacco Use Types Packs/Day Years Used Date Smoking Tobacco: Never Assessed Comments Unknown Sex and Gender Information Value Date Recorded Sex Assigned at Not on file 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
--- OUTSIDE RECORDS SUMMARY | 2025-04-29 15:17 | XMS_ITS | Encounter Summary ---
Author Organization [facility] Address [address] [place] [address] Care Team Providers Care Egg Packer Name Role Phone Jose Bowers MD Primary Care Provider Unavailab le Encounter Details Date Type Department Care Team (Late st Contact Info) Description 01/30/2007 Outpatient Historical [facility] Physical Med and Rehab- [place] [address] [place] [phone] Jose Bowers MD [address] [place] [address] Paraplegia (CMS/HCC) (Primary Dx) Social History Tobacco Use Types Packs/Day Years Used Date Smoking Tobacco: Never Assessed Comments Unknown Sex and Gender Information Value Date Recorded Sex Assigned at Not on file 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
--- OUTSIDE RECORDS SUMMARY | 2025-04-29 15:17 | XMS_ITS | Encounter Summary ---
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 Venous blood specimen (specimen) 04/28/2008 12:22 PM CDT 04/29/2008 1:49 AM CDT us Riky Mejía MD POINT OF CARE TESTING Final Result Performing Organization Address [facility] de Phone Number INTERFACE SYSTEM Refer to clinic/hospital department [facility] CLIA# [id number] [address] [place] [address] * (ABNORMAL) POC GLUCOSE (04/28/2008 6:07 AM CDT) GLUCOSE POC 132(H) 60 - 100 mg/dL [facility] Venous blood specimen (specimen) 04/28/2008 6:07 AM CDT 04/29/2008 1:56 AM CDT us Riky Mejía MD POINT OF CARE TESTING Final Result Performing Organization Address [facility] Phone Number INTERFACE SYSTEM Refer to clinic/hospital department [facility] CLIA# [id number] [facility]ly [facility] [place] [address] * (ABNORMAL) BASIC METABOLIC PANEL (04/28/2008 5:15 AM CDT) ANION GAP 10 9 - 20 mEq/L [facility] SODIUM 137 136 - 145 mEq/L [facility] BUN 13 7 - 17 mg/dL [facility] CO2 30 22 - 32 mmol/l [facility] POTASSIUM 4.5 3.5 - 5.0 mEq/L [facility] Comment: Specimen slightly hemolyzed OSMOLALITY, CALCULATED 284 275 - 295 mOsm/Kg [facility] CREATININE 0.6(L) 0.7 - 1.2 mg/dL [facility] CALCIUM 9.0 8.4 - 10.5 mg/dL [facility] GLUCOSE 112(H) 70 - 110 mg/dL [facility] CHLORIDE 102 95 - 110 mEq/L [facility] Blood specimen (specimen) 04/28/2008 5:15 AM CDT 04/28/2008 5:29 AM CDT us Riky Mejía MD CHEMISTRY ORDERABLES Final Result Performing Organization Address [facility] de Phone Number INTERFACE SYSTEM Refer to clinic/hospital department [facility] CLIA# [id number] [address] [place] [address] * (ABNORMAL) POC GLUCOSE (04/27/2008 8:55 PM CDT) GLUCOSE POC 133(H) 60 - 100 mg/dL [facility] Venous blood specimen (specimen) 04/27/2008 8:55 PM CDT 04/28/2008 2:27 AM CDT us Riky Mejía MD POINT OF CARE TESTING Final Result Performing Organization Address [facility] Phone Number INTERFACE SYSTEM Refer to clinic/[facility] department [facility] CLIA# [id number] [facility] [place] [address] * (ABNORMAL) POC GLUCOSE (04/27/2008 4:38 PM CDT) GLUCOSE POC 112(H) 60 - 100 mg/dL [facility] COMMENT POC Follow Protocol [facility] Venous blood specimen (specimen) 04/27/2008 4:38 PM CDT 04/28/2008 12:35 AM CDT Riky Mejía MD POINT OF CARE TESTING Final Result Performing Organization Address [facility] de Phone Number INTERFACE SYSTEM Refer to clinic/hospital department [facility] CLIA# [id number] [address] [place] [address] * (ABNORMAL) POC GLUCOSE (04/27/2008 11:23 AM CDT) GLUCOSE POC 143(H) 60 - 100 mg/dL [facility] Venous blood specimen (specimen) 04/27/2008 11:23 AM CDT 04/28/2008 2:23 AM CDT Riky Mejía MD POINT OF CARE TESTING Final Result Performing Organization Address [facility] de Phone Number INTERFACE SYSTEM Refer to clinic/hospital department [facility] CLIA# [id number] [address] [place] [address] * (ABNORMAL) POC GLUCOSE (04/27/2008 6:38 AM CDT) GLUCOSE POC 122(H) 60 - 100 mg/dL [facility] Venous blood specimen (specimen) 04/27/2008 6:38 AM CDT 04/28/2008 2:33 AM CDT Riky Mejía MD POINT OF CARE TESTING Final Result Performing Organization Address [facility] de Phone Number INTERFACE SYSTEM Refer to clinic/[facility] CLIA# [id number] [address] [place] [address] * (ABNORMAL) POC GLUCOSE (04/26/2008 8:43 PM CDT) GLUCOSE POC 128(H) 60 - 100 mg/dL [facility] Venous blood specimen (specimen) 04/26/2008 8:43 PM CDT 04/27/2008 2:25 AM CDT Riky Mejía MD POINT OF CARE TESTING Final Result Performing Organization Address [facility] de Phone Number INTERFACE SYSTEM Refer to clinic/hospital department [facility] CLIA# [id number] [address] [place] [address] * (ABNORMAL) POC GLUCOSE (04/26/2008 4:53 PM CDT) GLUCOSE POC 113(H) 60 - 100 mg/dL [facility] Venous blood specimen (specimen) 04/26/2008 4:53 PM CDT 04/27/2008 2:26 AM CDT Riky Mejía MD POINT OF CARE TESTING Final Result Performing Organization Address [facility] Phone Number INTERFACE SYSTEM Refer to clinic/hospital department [facility] CLIA# [id number] [address] [place] [address] * (ABNORMAL) POC GLUCOSE (04/26/2008 11:28 AM CDT) GLUCOSE POC 125(H) 60 - 100 mg/dL [facility] Venous blood specimen (specimen) 04/26/2008 11:28 AM CDT 04/27/2008 2:25 AM CDT Riky Mejía MD POINT OF CARE TESTING Final Result Performing Organization Address [facility] de Phone Number INTERFACE SYSTEM Refer to clinic/hospital department [facility] CLIA# [id number] [address] [place] [address] * (ABNORMAL) POC GLUCOSE (04/26/2008 5:36 AM CDT) GLUCOSE POC 123(H) 60 - 100 mg/dL [facility] Venous blood specimen (specimen) 04/26/2008 5:36 AM CDT 04/27/2008 2:25 AM CDT Riky Mejía MD POINT OF CARE TESTING Final Result Performing Organization Address [facility] Phone Number INTERFACE SYSTEM Refer to clinic/hospital department [facility] CLIA# [id number] [address] [place] [address] * (ABNORMAL) TRANSFERRIN (04/26/2008 4:02 AM CDT) TRANSFERRIN 121.0(L) 204.0 - 376.0 mg/dL [facility] Blood specimen (specimen) 04/26/2008 4:02 AM CDT 04/26/2008 4:19 AM CDT Riky Mejía MD CHEMISTRY ORDERABLES Final Result Performing Organization Address [facility] Phone Number INTERFACE SYSTEM Refer to clinic/hospital department [facility] CLIA# [id number] [address] [place] [address] * PREALBUMIN (04/26/2008 4:02 AM CDT) PREALBUMIN 22.2 14.0 - 32.0 mg/dL [facility] Blood specimen (specimen) 04/26/2008 4:02 AM CDT 04/26/2008 4:19 AM CDT Riky Mejía MD CHEMISTRY ORDERABLES Final Result Performing Organization Address [facility] Phone Number INTERFACE SYSTEM Refer to clinic/[facility] CLIA# [id number] [address] [place] [address] * (ABNORMAL) PROTIME-INR (04/26/2008 4:02 AM CDT) PROTIME 16.1(H) 12.8 - 15.[address] [facility] Comment:As of 2007 not e change in normal range. INR 1.2 [facility] Comment: Expected Values for INR: [...] Anticoagulation available from the pharmacy [facility] [phone] Blood specimen (specimen) 04/26/2008 4:02 AM CDT 04/26/2008 4:19 AM CDT Riky Mejía MD HEMATOLOGY ORDERABLES Final Result INTERFACE SYSTEM Refer to clinic/hospital department [facility] CLIA# [id number] [address] [place] [address] * (ABNORMAL) CBC WITH DIFFERENTIAL (04/26/2008 4:02 AM CDT) BASOPHILS ABSOLUTE 0.1 0.0 - 0.2 K/ul [facility] HEMOGLOBIN 10.3(L) 12.0 - 16.0 g/dL [facility] MONOCYTES 11.6(H) 2.0 - 10.0 % [facility] RDW 18.2(H) 11.0 - 14.5 % [facility] MONOCYTE ABSOLUTE 0.9(H) 0.1 - 0.6 K/ul [facility] WBC 8.1 4.5 - 11.0 K/ul [facility] NEUTROPHILS 67.2 42.2 - 75.2 % [facility] MCH 29.3 27.0 - 34.[address] [facility] NEUTROPHIL ABSOLUTE 5.5 2.0 - 8.0 K/ul [facility] HEMATOCRIT 33.7(L) 36.0 - 46.0 % [facility] PLATELETS 436 140 - 440 K/ul [facility] EOSINOPHIL ABSOLUTE 0.3 0.0 - 0.7 K/ul [facility] EOSINOPHILS 4.0 0.0 - 7.0 % [facility] PERIPHERAL BLOOD SMEAR REVIEW Automated Diff [facility] RBC 3.51(L) 4.20 - 5.40 Mil/ul [facility] MCHC 30.6 30.0 - 35.0 g/dL [facility] LYMPHOCYTE ABSOLUTE 1.3 1.2 - 4.0 K/ul [facility] LYMPHOCYTES 16.2(L) 24.0 - 44.0 % [facility] MCV 96.0 84.0 - 103.[address] [facility] BASOPHILS 1.0 0.0 - 1.0 % [facility] MPV 10.3 8.9 - 12.[address] [facility] Blood specimen (specimen) 04/26/2008 4:02 AM CDT 04/26/2008 4:19 AM CDT Narrative INTERFACE SYSTEM - 04/26/2008 4:35 AM CDT cbc with diff in am Riky Mejía MD HEMATOLOGY ORDERABLES Final Result INTERFACE SYSTEM Refer to clinic/hospital department [facility] CLIA# [id number] [address] [place] [address] * MAGNESIUM LEVEL (04/26/2008 4:02 AM CDT) MAGNESIUM 2.0 1.7 - 2.4 mg/dL [facility] Blood specimen (specimen) 04/26/2008 4:02 AM CDT 04/26/2008 4:19 AM CDT us Riky Mejía MD CHEMISTRY ORDERABLES Final Result Performing Organization Address [facility] Phone Number INTERFACE SYSTEM Refer to clinic/hospital department [facility] CLIA# [id number] [address] [place] [address] * TRIGLYCERIDE (04/26/2008 4:02 AM CDT) [facility] TRIGLYCERIDE 137 0 - 150 mg/dL [facility] Comment: On 11/10/2007, [facility] changed the triglyceride reference range to 0-150 mg/dl. This is the recommendation of the National Cholesterol Education Program (NCEP-ATPIII). Blood specimen (specimen) 04/26/2008 4:02 AM CDT 04/26/2008 4:19 AM CDT Riky Mejía MD CHEMISTRY ORDERABLES Final Result Performing Organization Address [facility] Phone Number INTERFACE SYSTEM Refer to clinic/hospital department [facility] CLIA# [id number] [address] [place] [address] * PHOSPHORUS (04/26/2008 4:02 AM CDT) [facility] PHOSPHORUS 4.1 2.5 - 4.6 mg/dL [facility] Blood specimen (specimen) 04/26/2008 4:02 AM CDT 04/26/2008 4:19 AM CDT Riky Mejía MD CHEMISTRY ORDERABLES Final Result Performing Organization Address [facility] Phone Number INTERFACE SYSTEM Refer to clinic/[facility] CLIA# [id number] [address] [place] [address] * (ABNORMAL) COMPREHENSIVE METABOLIC PANEL (04/26/2008 4:02 AM CDT) Pathologist [facility] OSMOLALITY, CALCULATED 284 275 - 295 mOsm/Kg [facility] GLOBULIN (CALC) 3.4 2.4 - 3.9 g/dL [facility] TOTAL PROTEIN 6.6 6.3 - 8.2 g/dL [facility] SODIUM 137 136 - 145 mEq/L [facility] BILIRUBIN TOTAL 0.8 0.3 - 1.2 mg/dL [facility] CO2 33(H) 22 - 32 mmol/l [facility] BUN 15 7 - 17 mg/dL [facility] AST 29 8 - 33 U/L [facility] ALBUMIN/GLOBULIN RATIO 0.9(L) 1.0 - 2.3 [facility] POTASSIUM 3.9 3.5 - 5.0 mEq/L [facility] ANION GAP 7(L) 9 - 20 mEq/L [facility] ALBUMIN 3.2(L) 3.5 - 5.0 g/dL [facility] CREATININE 0.6(L) 0.7 - 1.2 mg/dL [facility] ALT 27 4 - 36 IU/L [facility] CALCIUM 8.7 8.4 - 10.5 mg/dL [facility] GLUCOSE 110 70 - 110 mg/dL [facility] ALKALINE PHOSPHATASE 105(H) 25 - 100 U/L [facility] CHLORIDE 101 95 - 110 mEq/L [facility] Blood specimen (specimen) 04/26/2008 4:02 AM CDT 04/26/2008 4:19 AM CDT us Riky Mejía MD CHEMISTRY ORDERABLES Final Result INTERFACE SYSTEM Refer to clinic/hospital department [facility] CLIA# [id number] [address] [place] [address] * (ABNORMAL) BASIC METABOLIC PANEL (04/26/2008 4:02 AM CDT) GLUCOSE 110 70 - 110 mg/dL [facility] CHLORIDE 100 95 - 110 mEq/L [facility] ANION GAP 9 9 - 20 mEq/L [facility] SODIUM 137 136 - 145 mEq/L [facility] BUN 16 7 - 17 mg/dL [facility] CO2 32 22 - 32 mmol/l [facility] POTASSIUM 4.3 3.5 - 5.0 mEq/L [facility] OSMOLALITY, CALCULATED 285 275 - 295 mOsm/Kg [facility] CREATININE 0.5(L) 0.7 - 1.2 mg/dL [facility] CALCIUM 8.8 8.4 - 10.5 mg/dL [facility] Blood specimen (specimen) 04/26/2008 4:02 AM CDT 04/26/2008 4:19 AM CDT Riky Mejía MD CHEMISTRY ORDERABLES Final Result Performing Organization Address [facility] Phone Number INTERFACE SYSTEM Refer to clinic/hospital department [facility] CLIA# [id number] [address] [place] [address] * (ABNORMAL) POC GLUCOSE (04/25/2008 8:51 PM CDT) GLUCOSE POC 107(H) 60 - 100 mg/dL [facility] Venous blood specimen (specimen) 04/25/2008 8:51 PM CDT 04/26/2008 1:42 AM CDT Riky Mejía MD POINT OF CARE TESTING Final Result Performing Organization Address [facility] Phone Number INTERFACE SYSTEM Refer to clinic/hospital department [facility] CLIA# [id number] [address] [place] [address] * (ABNORMAL) POC GLUCOSE (04/25/2008 5:10 PM CDT) GLUCOSE POC 102(H) 60 - 100 mg/dL [facility] Venous blood specimen (specimen) 04/25/2008 5:10 PM CDT 04/26/2008 1:42 AM CDT Riky Mejía MD POINT OF CARE TESTING Final Result Performing Organization Address [facility] Phone Number INTERFACE SYSTEM Refer to clinic/hospital department [facility] CLIA# [id number] [address] [place] [address] * (ABNORMAL) POC GLUCOSE (04/25/2008 10:45 AM CDT) GLUCOSE POC 114(H) 60 - 100 mg/dL [facility] Venous blood specimen (specimen) 04/25/2008 10:45 AM CDT 04/26/2008 1:42 AM CDT Riky Mejía MD POINT OF CARE TESTING Final Result Performing Organization Address [facility] Phone Number INTERFACE SYSTEM Refer to clinic/hospital department [facility] CLIA# [id number] [address] [place] [address] * (ABNORMAL) POC GLUCOSE (04/25/2008 6:00 AM CDT) GLUCOSE POC 113(H) 60 - 100 mg/dL [facility] Venous blood specimen (specimen) 04/25/2008 6:00 AM CDT 04/26/2008 1:45 AM CDT Riky Mejía MD POINT OF CARE TESTING Final Result Performing Organization Address [facility] de Phone Number INTERFACE SYSTEM Refer to clinic/hospital department [facility] CLIA# [id number] [address] [place] [address] * (ABNORMAL) BASIC METABOLIC PANEL (04/25/2008 3:28 AM CDT) OSMOLALITY, CALCULATED 286 275 - 295 mOsm/Kg [facility] CREATININE 0.5(L) 0.7 - 1.2 mg/dL [facility] CALCIUM 8.9 8.4 - 10.5 mg/dL [facility] GLUCOSE 115(H) 70 - 110 mg/dL [facility] CHLORIDE 101 95 - 110 mEq/L [facility] SODIUM 136 136 - 145 mEq/L [facility] ANION GAP 10 9 - 20 mEq/L [facility] BUN 20(H) 7 - 17 mg/dL [facility] CO2 30 22 - 32 mmol/l [facility] POTASSIUM 4.9 3.5 - 5.0 mEq/L [facility] Blood specimen (specimen) 04/25/2008 3:28 AM CDT 04/25/2008 3:31 AM CDT Riky Mejía MD CHEMISTRY ORDERABLES Final Result Performing Organization Address [facility] Phone Number INTERFACE SYSTEM Refer to clinic/hospital department [facility] CLIA# [id number] [address] [place] [address] * (ABNORMAL) POC GLUCOSE (04/24/2008 8:30 PM CDT) GLUCOSE POC 121(H) 60 - 100 mg/dL [facility] Venous blood specimen (specimen) 04/24/2008 8:30 PM CDT 04/25/2008 1:43 AM CDT Riky Mejía MD POINT OF CARE TESTING Final Result Performing Organization Address [facility] Phone Number INTERFACE SYSTEM Refer to clinic/hospital department [facility] CLIA# [id number] [address] [place] [address] * (ABNORMAL) POC GLUCOSE (04/24/2008 5:10 PM CDT) GLUCOSE POC 109(H) 60 - 100 mg/dL [facility] Venous blood specimen (specimen) 04/24/2008 5:10 PM CDT 04/25/2008 1:43 AM CDT Riky Mejía MD POINT OF CARE TESTING Final Result Performing Organization Address [facility] de Phone Number INTERFACE SYSTEM Refer to clinic/hospital department [facility] CLIA# [id number] [address] [place] [address] * (ABNORMAL) POC GLUCOSE (04/24/2008 1:53 PM CDT) GLUCOSE POC 113(H) 60 - 100 mg/dL [facility] Venous blood specimen (specimen) 04/24/2008 1:53 PM CDT 04/25/2008 1:50 AM CDT Riky Mejía MD POINT OF CARE TESTING Final Result Performing Organization Address [facility] de Phone Number INTERFACE SYSTEM Refer to clinic/hospital department [facility] CLIA# [id number] [address] [place] [address] * (ABNORMAL) POC GLUCOSE (04/24/2008 11:40 AM CDT) GLUCOSE POC 160(H) 60 - 100 mg/dL [facility] Venous blood specimen (specimen) 04/24/2008 11:40 AM CDT 04/25/2008 1:50 AM CDT Riky Mejía MD POINT OF CARE TESTING Final Result Performing Organization Address [facility] de Phone Number INTERFACE SYSTEM Refer to clinic/hospital department [facility] CLIA# [id number] [address] [place] [address] * (ABNORMAL) POC GLUCOSE (04/24/2008 5:45 AM CDT) GLUCOSE POC 129(H) 60 - 100 mg/dL [facility] Venous blood specimen (specimen) 04/24/2008 5:45 AM CDT 04/25/2008 1:46 AM CDT Riky Mejía MD POINT OF CARE TESTING Final Result INTERFACE SYSTEM Refer to clinic/hospital department [facility] CLIA# [id number] [address] [place] [address] * (ABNORMAL) CBC WITH DIFFERENTIAL (04/24/2008 3:09 AM CDT) WBC 10.5 4.5 - 11.0 K/ul [facility] MCH 29.4 27.0 - 34.[address] [facility] NEUTROPHIL ABSOLUTE 7.1 2.0 - 8.0 K/ul [facility] NEUTROPHILS 67.1 42.2 - 75.2 % [facility] HEMATOCRIT 32.8(L) 36.0 - 46.0 % [facility] EOSINOPHILS 4.3 0.0 - 7.0 % [facility] PLATELETS 491(H) 140 - 440 K/ul [facility] PERIPHERAL BLOOD SMEAR REVIEW Automated Diff [facility] EOSINOPHIL ABSOLUTE 0.5 0.0 - 0.7 K/ul [facility] RBC 3.44(L) 4.20 - 5.40 Mil/ul [facility] LYMPHOCYTES 17.3(L) 24.0 - 44.0 % [facility] MCHC 30.8 30.0 - 35.0 g/dL [facility] LYMPHOCYTE ABSOLUTE 1.8 1.2 - 4.0 K/ul [facility] MCV 95.3 84.0 - 103.[address] [facility] MPV 10.4 8.9 - 12.[address] [facility] BASOPHILS ABSOLUTE 0.1 0.0 - 0.2 K/ul [facility] BASOPHILS 1.3(H) 0.0 - 1.0 % [facility] HEMOGLOBIN 10.1(L) 12.0 - 16.0 g/dL [facility] RDW 17.8(H) 11.0 - 14.5 % [facility] MONOCYTE ABSOLUTE 1.1(H) 0.1 - 0.6 K/ul [facility] MONOCYTES 10.0 2.0 - 10.0 % [facility] Blood specimen (specimen) 04/24/2008 3:09 AM CDT 04/24/2008 3:21 AM CDT Riky Mejía MD HEMATOLOGY ORDERABLES Final Result Performing Organization Address [facility] Phone Number INTERFACE SYSTEM Refer to clinic/hospital department [facility] CLIA# [id number] [address] [place] [address] * (ABNORMAL) BASIC METABOLIC PANEL (04/24/2008 3:09 AM CDT) BUN 20(H) 7 - 17 mg/dL [facility] CO2 31 22 - 32 mmol/l [facility] POTASSIUM 4.6 3.5 - 5.0 mEq/L [facility] OSMOLALITY, CALCULATED 286 275 - 295 mOsm/Kg [facility] CREATININE 0.5(L) 0.7 - 1.2 mg/dL [facility] CALCIUM 8.8 8.4 - 10.5 mg/dL [facility] GLUCOSE 106 70 - 110 mg/dL [facility] CHLORIDE 100 95 - 110 mEq/L [facility] ANION GAP 11 9 - 20 mEq/L [facility] SODIUM 137 136 - 145 mEq/L [facility] Blood specimen (specimen) 04/24/2008 3:09 AM CDT 04/24/2008 3:21 AM CDT Riky Mejía MD CHEMISTRY ORDERABLES Final Result Performing Organization Address [facility] Phone Number INTERFACE SYSTEM Refer to clinic/hospital department [facility] CLIA# [id number] [address] [place] [address] * (ABNORMAL) POC GLUCOSE (04/23/2008 8:56 PM CDT) GLUCOSE POC 132(H) 60 - 100 mg/dL [facility] Venous blood specimen (specimen) 04/23/2008 8:56 PM CDT 04/24/2008 1:58 AM CDT us Riky Mejía MD POINT OF CARE TESTING Final Result Performing Organization Address [facility] de Phone Number INTERFACE SYSTEM Refer to clinic/hospital department [facility] CLIA# [id number] [address] [place] [address] * (ABNORMAL) POC GLUCOSE (04/23/2008 4:37 PM CDT) GLUCOSE POC 129(H) 60 - 100 mg/dL [facility] Venous blood specimen (specimen) 04/23/2008 4:37 PM CDT 04/24/2008 1:58 AM CDT us Riky Mejía MD POINT OF CARE TESTING Final Result Performing Organization Address [facility] Phone Number INTERFACE SYSTEM Refer to clinic/hospital department [facility] CLIA# [id number] [address] [place] [address] * (ABNORMAL) POC GLUCOSE (04/23/2008 11:23 AM CDT) GLUCOSE POC 147(H) 60 - 100 mg/dL [facility] Venous blood specimen (specimen) 04/23/2008 11:23 AM CDT 04/24/2008 7:04 AM CDT us Riky Mejía MD POINT OF CARE TESTING Final Result Performing Organization Address [facility] de Phone Number INTERFACE SYSTEM Refer to clinic/hospital department [facility] CLIA# [id number] [address] [place] [address] * (ABNORMAL) POC GLUCOSE (04/23/2008 7:53 AM CDT) GLUCOSE POC 160(H) 60 - 100 mg/dL [facility] Venous blood specimen (specimen) 04/23/2008 7:53 AM CDT 04/24/2008 7:05 AM CDT Riky Mejía MD POINT OF CARE TESTING Final Result Performing Organization Address [facility] Phone Number INTERFACE SYSTEM Refer to clinic/hospital department [facility] CLIA# [id number] [address] [place] [address] * (ABNORMAL) BASIC METABOLIC PANEL (04/23/2008 3:33 AM CDT) BUN 18(H) 7 - 17 mg/dL [facility] CO2 30 22 - 32 mmol/l [facility] POTASSIUM 4.2 3.5 - 5.0 mEq/L [facility] OSMOLALITY, CALCULATED 283 275 - 295 mOsm/Kg [facility] CREATININE 0.4(L) 0.7 - 1.2 mg/dL [facility] CALCIUM 8.4 8.4 - 10.5 mg/dL [facility] GLUCOSE 131(H) 70 - 110 mg/dL [facility] CHLORIDE 104 95 - 110 mEq/L [facility] ANION GAP 5(L) 9 - 20 mEq/L [facility] SODIUM 135(L) 136 - 145 mEq/L [facility] Blood specimen (specimen) 04/23/2008 3:33 AM CDT 04/23/2008 3:39 AM CDT Riky Mejía MD CHEMISTRY ORDERABLES Final Result Performing Organization Address [facility] Phone Number INTERFACE SYSTEM Refer to clinic/hospital department [facility] CLIA# [id number] [address] [place] [address] * (ABNORMAL) POC GLUCOSE (04/23/2008 3:22 AM CDT) GLUCOSE POC 130(H) 60 - 100 mg/dL [facility] Venous blood specimen (specimen) 04/23/2008 3:22 AM CDT 04/24/2008 7:07 AM CDT Riky Mejía MD POINT OF CARE TESTING Final Result Performing Organization Address City/[facility] de Phone Number INTERFACE SYSTEM Refer to clinic/hospital department [facility] CLIA# [id number] [address] [place] [address] * (ABNORMAL) POC GLUCOSE (04/22/2008 11:30 PM CDT) GLUCOSE POC 155(H) 60 - 100 mg/dL [facility] Venous blood specimen (specimen) 04/22/2008 11:30 PM CDT 04/23/2008 7:12 AM CDT Riky Mejía MD POINT OF CARE TESTING Final Result Performing Organization Address [facility] Phone Number INTERFACE SYSTEM Refer to clinic/hospital department [facility] CLIA# [id number] [address] [place] [address] * (ABNORMAL) POC GLUCOSE (04/22/2008 7:54 PM CDT) GLUCOSE POC 158(H) 60 - 100 mg/dL [facility] Venous blood specimen (specimen) 04/22/2008 7:54 PM CDT 04/23/2008 3:46 PM CDT Riky Mejía MD POINT OF CARE TESTING Final Result Performing Organization Address City/[facility] de Phone Number INTERFACE SYSTEM Refer to clinic/hospital department [facility] CLIA# [id number] [address] [place] [address] * (ABNORMAL) POC GLUCOSE (04/22/2008 4:09 PM CDT) GLUCOSE POC 129(H) 60 - 100 mg/dL [facility] Venous blood specimen (specimen) 04/22/2008 4:09 PM CDT 04/23/2008 3:46 PM CDT Riky Mejía MD POINT OF CARE TESTING Final Result Performing Organization Address City/[facility] de Phone Number INTERFACE SYSTEM Refer to clinic/hospital department [facility] CLIA# [id number] [address] [place] [address] * (ABNORMAL) POC GLUCOSE (04/22/2008 11:36 AM CDT) GLUCOSE POC 118(H) 60 - 100 mg/dL [facility] Venous blood specimen (specimen) 04/22/2008 11:36 AM CDT 04/23/2008 7:12 AM CDT Riky Mejía MD POINT OF CARE TESTING Final Result Performing Organization Address [facility] Phone Number INTERFACE SYSTEM Refer to clinic/hospital department [facility] CLIA# [id number] [address] [place] [address] * (ABNORMAL) POC GLUCOSE (04/22/2008 7:55 AM CDT) GLUCOSE POC 160(H) 60 - 100 mg/dL [facility] Venous blood specimen (specimen) 04/22/2008 7:55 AM CDT 04/24/2008 7:07 AM CDT Riky Mejía MD POINT OF CARE TESTING Final Result Performing Organization Address City/[facility] de Phone Number INTERFACE SYSTEM Refer to clinic/hospital department [facility] CLIA# [id number] [address] [place] [address] * (ABNORMAL) BASIC METABOLIC PANEL (04/22/2008 3:26 AM CDT) BUN 15 7 - 17 mg/dL [facility] CO2 28 22 - 32 mmol/l [facility] OSMOLALITY, CALCULATED 300(H) 275 - 295 mOsm/Kg [facility] POTASSIUM 3.0(L) 3.5 - 5.0 mEq/L [facility] CREATININE 0.2(L) 0.7 - 1.2 mg/dL [facility] CALCIUM 6.7(L) 8.4 - 10.5 mg/dL [facility] GLUCOSE 109 70 - 110 mg/dL [facility] CHLORIDE 109 95 - 110 mEq/L [facility] SODIUM 147(H) 136 - 145 mEq/L [facility] ANION GAP 13 9 - 20 mEq/L [facility] Blood specimen (specimen) 04/22/2008 3:26 AM CDT 04/22/2008 3:31 AM CDT Riky Mejía MD CHEMISTRY ORDERABLES Final Result Performing Organization Address City/[facility] Co in Phone Number INTERFACE SYSTEM Refer to clinic/hospital department [facility] CLIA# [id number] [address] [place] [address] * POC GLUCOSE (04/22/2008 3:17 AM CDT) GLUCOSE POC 73 60 - 100 mg/dL [facility] Venous blood specimen (specimen) 04/22/2008 3:17 AM CDT 04/22/2008 6:51 AM CDT Riky Mejía MD POINT OF CARE TESTING Final Result Performing Organization Address [facility] Phone Number INTERFACE SYSTEM Refer to clinic/hospital department [facility] CLIA# [id number] [address] [place] [address] * (ABNORMAL) POC GLUCOSE (04/21/2008 11:17 PM CDT) GLUCOSE POC 130(H) 60 - 100 mg/dL [facility] Venous blood specimen (specimen) 04/21/2008 11:17 PM CDT 04/22/2008 6:51 AM CDT us Riky Mejía MD POINT OF CARE TESTING Final Result Performing Organization Address City/[facility] de Phone Number INTERFACE SYSTEM Refer to clinic/hospital department [facility] CLIA# [id number] [address] [place] [address] * (ABNORMAL) POC GLUCOSE (04/21/2008 7:59 PM CDT) GLUCOSE POC 135(H) 60 - 100 mg/dL [facility] Venous blood specimen (specimen) 04/21/2008 7:59 PM CDT 04/22/2008 6:51 AM CDT us Riky Mejía MD POINT OF CARE TESTING Final Result Performing Organization Address [facility] de Phone Number INTERFACE SYSTEM Refer to clinic/hospital department [facility] CLIA# [id number] [address] [place] [address] * (ABNORMAL) POC GLUCOSE (04/21/2008 4:29 PM CDT) GLUCOSE POC 144(H) 60 - 100 mg/dL [facility] COMMENT POC Follow Protocol [facility] Venous blood specimen (specimen) 04/21/2008 4:29 PM CDT 04/22/2008 6:51 AM CDT us Riky Mejía MD POINT OF CARE TESTING Final Result Performing Organization Address City/[facility] de Phone Number INTERFACE SYSTEM Refer to clinic/hospital department [facility] CLIA# [id number] [address] [place] [address] * (ABNORMAL) POC GLUCOSE (04/21/2008 1:17 PM CDT) COMMENT POC Follow Protocol [facility] GLUCOSE POC 145(H) 60 - 100 mg/dL [facility] Venous blood specimen (specimen) 04/21/2008 1:17 PM CDT 04/22/2008 6:51 AM CDT Riky Mejía MD POINT OF CARE TESTING Final Result Performing Organization Address [facility] Phone Number INTERFACE SYSTEM Refer to clinic/hospital department [facility] CLIA# [id number] [address] [place] [address] * POTASSIUM LEVEL (04/21/2008 7:33 AM CDT) POTASSIUM 4.2 3.5 - 5.0 mEq/L [facility] Comment: Specimen slightly hemolyzed Blood specimen (specimen) 04/21/2008 7:33 AM CDT 04/21/2008 7:33 AM CDT Riky Mejía MD CHEMISTRY ORDERABLES Final Result Performing Organization Address [facility] Phone Number INTERFACE SYSTEM Refer to clinic/hospital department [facility] CLIA# [id number] [address] [place] [address] * (ABNORMAL) POC GLUCOSE (04/21/2008 7:26 AM CDT) GLUCOSE POC 146(H) 60 - 100 mg/dL [facility] Venous blood specimen (specimen) 04/21/2008 7:26 AM CDT 04/22/2008 6:51 AM CDT Riky Mejía MD POINT OF CARE TESTING Final Result Performing Organization Address [facility] Phone Number INTERFACE SYSTEM Refer to clinic/hospital department [facility] CLIA# [id number] [address] [place] [address] * (ABNORMAL) POC GLUCOSE (04/21/2008 2:58 AM CDT) Pathologist [facility] GLUCOSE POC 128(H) 60 - 100 mg/dL [facility] Venous blood specimen (specimen) 04/21/2008 2:58 AM CDT 04/21/2008 7:32 AM CDT Riky Mejía MD POINT OF CARE TESTING Final Result Performing Organization Address [facility] de Phone Number INTERFACE SYSTEM Refer to clinic/hospital department [facility] CLIA# [id number] [address] [place] [address] * (ABNORMAL) BASIC METABOLIC PANEL (04/21/2008 2:00 AM CDT) Pathologist [facility] ANION GAP 7(L) 9 - 20 mEq/L [facility] SODIUM 137 136 - 145 mEq/L [facility] BUN 19(H) 7 - 17 mg/dL [facility] CO2 36(H) 22 - 32 mmol/l [facility] POTASSIUM 3.8 3.5 - 5.0 mEq/L [facility] OSMOLALITY, CALCULATED 287 275 - 295 mOsm/Kg [facility] CREATININE 0.4(L) 0.7 - 1.2 mg/dL [facility] CALCIUM 8.4 8.4 - 10.5 mg/dL [facility] GLUCOSE 142(H) 70 - 110 mg/dL [facility] CHLORIDE 98 95 - 110 mEq/L [facility] Blood specimen (specimen) 04/21/2008 2:00 AM CDT 04/21/2008 2:00 AM CDT Riky Mejía MD CHEMISTRY ORDERABLES Final Result Performing Organization Address [facility] de Phone Number INTERFACE SYSTEM Refer to clinic/hospital department [facility] CLIA# [id number] [address] [place] [address] * (ABNORMAL) POC GLUCOSE (04/20/2008 11:57 PM CDT) Pathologist [facility] GLUCOSE POC 142(H) 60 - 100 mg/dL [facility] Venous blood specimen (specimen) 04/20/2008 11:57 PM CDT 04/21/2008 12:09 AM CDT Riky Mejía MD POINT OF CARE TESTING Final Result Performing Organization Address [facility] de Phone Number INTERFACE SYSTEM Refer to clinic/hospital department [facility] CLIA# [id number] [facility] [place] [address] * (ABNORMAL) BASIC METABOLIC PANEL (04/20/2008 11:40 PM CDT) [facility] POTASSIUM 3.8 3.5 - 5.0 mEq/L [facility] Comment: Specimen slightly hemolyzed OSMOLALITY, CALCULATED 286 275 - 295 mOsm/Kg [facility] CREATININE 0.5(L) 0.7 - 1.2 mg/dL [facility] CALCIUM 8.7 8.4 - 10.5 mg/dL [facility] GLUCOSE 119(H) 70 - 110 mg/dL [facility] CHLORIDE 95 95 - 110 mEq/L [facility] ANION GAP 13 9 - 20 mEq/L [facility] SODIUM 137 136 - 145 mEq/L [facility] BUN 20(H) 7 - 17 mg/dL [facility] CO2 33(H) 22 - 32 mmol/l [facility] Blood specimen (specimen) 04/20/2008 11:40 PM CDT 04/21/2008 5:43 AM CDT us Riky Mejía MD CHEMISTRY ORDERABLES Final Result Performing Organization Address [facility] Co de Phone Number INTERFACE SYSTEM Refer to clinic/hospital department [facility] CLIA# [id number] [address] [place] [address] * (ABNORMAL) POC GLUCOSE (04/20/2008 7:17 PM CDT) GLUCOSE POC 134(H) 60 - 100 mg/dL [facility] Venous blood specimen (specimen) 04/20/2008 7:17 PM CDT 04/21/2008 12:00 AM CDT Riky Mejía MD POINT OF CARE TESTING Final Result Performing Organization Address [facility] de Phone Number INTERFACE SYSTEM Refer to clinic/hospital department [facility] CLIA# [id number] [address] [place] [address] * POTASSIUM LEVEL (04/20/2008 4:09 PM CDT) POTASSIUM 4.1 3.5 - 5.0 mEq/L [facility] Blood specimen (specimen) 04/20/2008 4:09 PM CDT 04/20/2008 4:09 PM CDT Riky Mejía MD CHEMISTRY ORDERABLES Final Result Performing Organization Address [facility] de Phone Number INTERFACE SYSTEM Refer to clinic/hospital department [facility] CLIA# [id number] [address] [place] [address] * (ABNORMAL) POC GLUCOSE (04/20/2008 3:59 PM CDT) GLUCOSE POC 118(H) 60 - 100 mg/dL [facility] Venous blood specimen (specimen) 04/20/2008 3:59 PM CDT 04/21/2008 12:00 AM CDT Riky Mejía MD POINT OF CARE TESTING Final Result Performing Organization Address [facility] de Phone Number INTERFACE SYSTEM Refer to clinic/hospital department [facility] CLIA# [id number] [address] [place] [address] * (ABNORMAL) POC GLUCOSE (04/20/2008 12:02 PM CDT) GLUCOSE POC 158(H) 60 - 100 mg/dL [facility] Venous blood specimen (specimen) 04/20/2008 12:02 PM CDT 04/21/2008 12:00 AM CDT Riky Mejía MD POINT OF CARE TESTING Final Result INTERFACE SYSTEM Refer to clinic/hospital department [facility] CLIA# [id number] [address] [place] [address] * (ABNORMAL) POC ISTAT EG 7+ (04/20/2008 10:06 AM CDT) SPECIMEN TYPE Arterial [facility] Comment: Test Performed By [id number] Pulse OX: 97 Hemoglobin calculated from Hematocrit result PCO2 TEMP CORRECT 48(H) 35 - [address] [facility] HEMOGLOBIN POC 10.5 +/-3 g/dL 12.0 - 16.0 g/dL [facility] POTASSIUM 3.8 3.5 - 4.9 mEq/L [facility] PH TEMP CORRECT 7.47(H) 7.35 - 7.[address] [facility] HCO3 (CALC) POC 35.4(H) 22.0 - 26.0 mmol/l [facility] TCO2 (CALC) POC 37(H) 23 - 27 mmol/l [facility] FIO2 40 [facility] PO2 90 80 - [address] [facility] CALCIUM IONIZED 1.06(L) 1.12 - 1.32 mmol/l [facility] HEMATOCRIT ABG 31(L) 38 - 51 % [facility] PCO2 POC 48(H) 35 - [address] [facility] SODIUM 134(L) 138 - 146 mEq/L [facility] BASE EXCESS 12(H) -2 - 3 mmol/l [facility] PH 7.47(H) 7.35 - 7.[address] [facility] O2 SATURATION 97 95 - 98 % [facility] PO2 TEMP CORRECT 90 80 - [address] [facility] Arterial blood specimen (specimen) 04/20/2008 10:06 AM CDT 04/20/2008 11:14 AM CDT us Riky Mejía MD POINT OF CARE TESTING COM F inal Result Performing Organization Address [facility] de Phone Number INTERFACE SYSTEM Refer to clinic/hospital department [facility] CLIA# [id number] [address] [place] [address] * POTASSIUM LEVEL (04/20/2008 7:15 AM CDT) POTASSIUM 4.5 3.5 - 5.0 mEq/L [facility] Blood specimen (specimen) 04/20/2008 7:15 AM CDT 04/20/2008 7:20 AM CDT us Riky Mejía MD CHEMISTRY ORDERABLES Final Result Performing Organization Address [facility] de Phone Number INTERFACE SYSTEM Refer to clinic/hospital department [facility] CLIA# [id number] [address] [place] [address] * (ABNORMAL) POC GLUCOSE (04/20/2008 7:11 AM CDT) GLUCOSE POC 138(H) 60 - 100 mg/dL [facility] Venous blood specimen (specimen) 04/20/2008 7:11 AM CDT 04/20/2008 11:59 PM CDT us Riky Mejía MD POINT OF CARE TESTING Final Result Performing Organization Address City/[facility] de Phone Number INTERFACE SYSTEM Refer to clinic/hospital department [facility] CLIA# [id number] [address] [place] [address] * (ABNORMAL) POC ISTAT EG 7+ (04/20/2008 4:30 AM CDT) FIO2 30 [facility] HEMATOCRIT ABG 29(L) 38 - 51 % [facility] PO2 84 80 - [address] [facility] CALCIUM IONIZED 1.11(L) 1.12 - 1.32 mmol/l [facility] PCO2 POC 44 35 - [address] [facility] BASE EXCESS 14(H) -2 - 3 mmol/l [facility] SODIUM 131(L) 138 - 146 mEq/L [facility] PH 7.53(H) 7.35 - 7.[address] [facility] PO2 TEMP CORRECT 84 80 - [address] [facility] O2 SATURATION 97 95 - 98 % [facility] SPECIMEN TYPE Arterial [facility] Comment: Test Performed By [id number] PEEP: 06 Pressure Support: 14 Pulse OX: 96 Hemoglobin calculated from Hematocrit result PCO2 TEMP CORRECT 44 35 - [address] [facility] POTASSIUM 4.0 3.5 - 4.9 mEq/L [facility] HEMOGLOBIN POC 9.9 +/-3 g/dL 12.0 - 16.0 g/dL [facility] PH TEMP CORRECT 7.53(H) 7.35 - 7.[address] [facility] TCO2 (CALC) POC 38(H) 23 - 27 mmol/l [facility] HCO3 (CALC) POC 36.4(H) 22.0 - 26.0 mmol/l [facility] Arterial blood specimen (specimen) 04/20/2008 4:30 AM CDT 04/20/2008 5:54 AM CDT us Riky Mejía MD POINT OF CARE TESTING COM F inal Result INTERFACE SYSTEM Refer to clinic/hospital department [facility] CLIA# [id number] [address] [place] [address] * (ABNORMAL) DIFFERENTIAL, MANUAL (04/20/2008 4:04 AM CDT) POIKILOCYTES 1+(A) None Seen [facility] MONOCYTE 9 4 - 10 % [facility] RBC MORPHOLOGY Abnormal(A ) Normal [facility] BANDS 11(H) 0 - 6 % [facility] POLYCHROMASIA 1+(A) None Seen [facility] EOSINOPHILS 1 0 - 3 % [facility] ANISOCYTOSIS 1+(A) None Seen [facility] PLATELET EST. Normal Normal [facility] LYMPHOCYTES 17(L) 24 - 44 % [facility] NEUTROPHILS, SEG 62 36 - 66 % [facility] Blood specimen (specimen) 04/20/2008 4:04 AM CDT 04/20/2008 4:16 AM CDT Narrative INTERFACE SYSTEM - 04/20/2008 5:12 AM CDT Differential ordered by policy. Riky Mejía MD HEMATOLOGY ORDERABLES COM F inal Result INTERFACE SYSTEM Refer to clinic/hospital department [facility] CLIA# [id number] [address] [place] [address] * (ABNORMAL) PT AND APTT (04/20/2008 4:04 AM CDT) PTT 31.3 22.5 - 36.[address] [facility] Comment: Therapeutic Range: Hi-level PE/DVT heparin protocol 80.1 -95.0 sec Lo-level PE/DVT heparin protocol 67.1 - 80.0 sec Cardiac Heparin Protocol 67.1 - 85.0 sec Neuro Heparin Protocol 67.1 - 80.0 sec As of 09/25/2007 note change in APTT Normal Range. PROTIME 17.4(H) 12.8 - 15.[address] [facility] Comment:As of 2007 not e change in normal range. INR 1.3 [facility] Comment: Expected Values for INR: [...] Anticoagulation available from the pharmacy [facility] [phone] Blood specimen (specimen) 04/20/2008 4:04 AM CDT 04/20/2008 4:16 AM CDT Riky eMjía MD HEMATOLOGY ORDERABLES Edite d INTERFACE SYSTEM Refer to clinic/hospital department [facility] CLIA# [id number] [address] [place] [address] * (ABNORMAL) CBC WITH DIFFERENTIAL (04/20/2008 4:04 AM CDT) HEMATOCRIT 30.6(L) 36.0 - 46.0 % [facility] PLATELETS 436 140 - 440 K/ul [facility] RBC 3.30(L) 4.20 - 5.40 Mil/ul [facility] MCHC 32.0 30.0 - 35.0 g/dL [facility] MCV 92.7 84.0 - 103.[address] [facility] MPV 10.2 8.9 - 12.[address] [facility] HEMOGLOBIN 9.8(L) 12.0 - 16.0 g/dL [facility] RDW 17.3(H) 11.0 - 14.5 % [facility] WBC 13.0(H) 4.5 - 11.0 K/ul [facility] MCH 29.7 27.0 - 34.[address] [facility] Blood specimen (specimen) 04/20/2008 4:04 AM CDT 04/20/2008 4:16 AM CDT Riky Mejía MD HEMATOLOGY ORDERABLES Edite d Performing Organization Address [facility] Phone Number INTERFACE SYSTEM Refer to clinic/hospital department [facility] CLIA# [id number] [address] [place] [address] * (ABNORMAL) BASIC METABOLIC PANEL (04/20/2008 4:04 AM CDT) BUN 19(H) 7 - 17 mg/dL [facility] CO2 33(H) 22 - 32 mmol/l [facility] POTASSIUM 4.1 3.5 - 5.0 mEq/L [facility] OSMOLALITY, CALCULATED 280 275 - 295 mOsm/Kg [facility] CREATININE 0.5(L) 0.7 - 1.2 mg/dL [facility] CALCIUM 8.6 8.4 - 10.5 mg/dL [facility] GLUCOSE 146(H) 70 - 110 mg/dL [facility] CHLORIDE 97 95 - 110 mEq/L [facility] ANION GAP 7(L) 9 - 20 mEq/L [facility] SODIUM 133(L) 136 - 145 mEq/L [facility] Blood specimen (specimen) 04/20/2008 4:04 AM CDT 04/20/2008 4:40 AM CDT us Riky Mejía MD CHEMISTRY ORDERABLES Final Result Performing Organization Address [facility] Phone Number INTERFACE SYSTEM Refer to clinic/hospital department [facility] CLIA# [id number] [address] [place] [address] * (ABNORMAL) POC GLUCOSE (04/20/2008 3:59 AM CDT) GLUCOSE POC 160(H) 60 - 100 mg/dL [facility] Venous blood specimen (specimen) 04/20/2008 3:59 AM CDT 04/20/2008 6:38 AM CDT Riky Mejía MD POINT OF CARE TESTING Final Result Performing Organization Address [facility] Phone Number INTERFACE SYSTEM Refer to clinic/hospital department [facility] CLIA# [id number] [address] [place] [address] * POTASSIUM LEVEL (04/19/2008 11:37 PM CDT) POTASSIUM 4.3 3.5 - 5.0 mEq/L [facility] Blood specimen (specimen) 04/19/2008 11:37 PM CDT 04/19/2008 11:46 PM CDT Riky Mejía MD CHEMISTRY ORDERABLES Final Result Performing Organization Address [facility] Phone Number INTERFACE SYSTEM Refer to clinic/hospital [facility] CLIA# [id number] [address] [place] [address] * (ABNORMAL) POC GLUCOSE (04/19/2008 11:30 PM CDT) GLUCOSE POC 156(H) 60 - 100 mg/dL [facility] Venous blood specimen (specimen) 04/19/2008 11:30 PM CDT 04/20/2008 6:37 AM CDT us Riky Mejía MD POINT OF CARE TESTING Final Result Performing Organization Address [facility] Phone Number INTERFACE SYSTEM Refer to clinic/hospital [facility] CLIA# [id number] [address] [place] [address] * (ABNORMAL) DIFFERENTIAL, MANUAL (04/19/2008 8:35 PM CDT) MONOCYTE 12(H) 4 - 10 % [facility] ANISOCYTOSIS 1+(A) None Seen [facility] BANDS 18(H) 0 - 6 % [facility] PLATELET EST. Normal Normal [facility] METAMYELOCYTE 2(H) 0 - 1 % [facility] POLYCHROMASIA 1+(A) None Seen [facility] LYMPHOCYTES 6(L) 24 - 44 % [facility] RBC MORPHOLOGY Abnormal(A ) Normal [facility] NEUTROPHILS, SEG 57 36 - 66 % [facility] MYELOCYTES 5(H) <=1 % [facility] GIANT PLATELETS Present(A) [facility] Blood specimen (specimen) 04/19/2008 8:35 PM CDT 04/19/2008 8:35 PM CDT Narrative INTERFACE SYSTEM - 04/19/2008 10:07 PM CDT Differential ordered by policy. Riky Mejía MD HEMATOLOGY ORDERABLES COM F inal Result INTERFACE SYSTEM Refer to clinic/hospital department [facility] CLIA# [id number] [address] [place] [address] * (ABNORMAL) PT AND APTT (04/19/2008 8:35 PM CDT) INR 1.3 [facility] Comment: Expected Values for INR: [...] Anticoagulation available from the pharmacy [facility] [phone] PROTIME 17.0(H) 12.8 - 15.[address] [facility] Comment:As of 2007 not e change in normal range. PTT 33.0 22.5 - 36.[address] [facility] Comment: Therapeutic Range: Hi-level PE/DVT [...] HEMATOLOGY ORDERABLES Edite d Performing Organization Address City/State/[facility] Co de Phone Number INTERFACE SYSTEM Refer to clinic/hospital department [facility] CLIA# [id number] [address] [place] [address] * (ABNORMAL) CBC WITH DIFFERENTIAL (04/19/2008 8:35 PM CDT) RBC 3.37(L) 4.20 - 5.40 Mil/ul [facility] MCHC 31.6 30.0 - 35.0 g/dL [facility] LYMPHOCYTE ABSOLUTE 1.8 1.2 - 4.0 K/ul [facility] LYMPHOCYTES 12.2(L) 24.0 - 44.0 % [facility] MCV 92.9 84.0 - 103.[address] [facility] BASOPHILS 0.9 0.0 - 1.0 % [facility] MPV 10.4 8.9 - 12.[address] [facility] NRBC 1 <=1 [facility] BASOPHILS ABSOLUTE 0.1 0.0 - 0.2 K/ul [facility] HEMOGLOBIN 9.9(L) 12.0 - 16.0 g/dL [facility] MONOCYTES 10.2(H) 2.0 - 10.0 % [facility] RDW 17.4(H) 11.0 - 14.5 % [facility] MONOCYTE ABSOLUTE 1.5(H) 0.1 - 0.6 K/ul [facility] NEUTROPHILS 75.3(H) 42.2 - 75.2 % [facility] MCH 29.4 27.0 - 34.[address] [facility] WBC 14.9(H) 4.5 - 11.0 K/ul [facility] Comment: WBC Corrected for Nucleated RBC'S NEUTROPHIL ABSOLUTE 11.3(H) 2.0 - 8.0 K/ul [facility] HEMATOCRIT 31.3(L) 36.0 - 46.0 % [facility] PLATELETS 459(H) 140 - 440 K/ul [facility] EOSINOPHIL ABSOLUTE 0.2 0.0 - 0.7 K/ul [facility] EOSINOPHILS 1.4 0.0 - 7.0 % [facility] Blood specimen (specimen) 04/19/2008 8:35 PM CDT 04/19/2008 8:35 PM CDT us Riky Mejía MD HEMATOLOGY ORDERABLES Edite d Performing Organization Address [place]/[facility] Co de Phone Number INTERFACE SYSTEM Refer to clinic/hospital department [facility] CLIA# [id number] [address] [place] [id number] * (ABNORMAL) POC GLUCOSE (04/19/2008 8:31 PM CDT) GLUCOSE POC 115(H) 60 - 100 mg/dL [facility] Venous blood specimen (specimen) 04/19/2008 8:31 PM CDT 04/20/2008 6:37 AM CDT Riky Mejía MD POINT OF CARE TESTING Final Result Performing Organization Address [place]/[facility] Co de Phone Number INTERFACE SYSTEM Refer to clinic/hospital department [facility] CLIA# [id number] [address] [place] [address] * XR CHEST PA OR AP (04/19/2008 [...] GLUCOSE POC 125(H) 60 - 100 mg/dL [facility] Venous blood specimen (specimen) 04/19/2008 4:58 PM CDT 04/20/2008 7:00 AM CDT Riky Mejía MD POINT OF CARE TESTING Final Result Performing Organization Address [facility] Phone Number INTERFACE SYSTEM Refer to clinic/hospital department [facility] CLIA# [id number] [address] [place] [address] * POTASSIUM LEVEL (04/19/2008 4:30 PM CDT) POTASSIUM 4.0 3.5 - 5.0 mEq/L [facility] Blood specimen (specimen) 04/19/2008 4:30 PM CDT 04/19/2008 4:30 PM CDT Riky Mejía MD CHEMISTRY ORDERABLES Final Result Performing Organization Address [facility] Phone Number INTERFACE SYSTEM Refer to clinic/hospital department [facility] CLIA# [id number] [address] [place] [address] * (ABNORMAL) POC GLUCOSE (04/19/2008 12:04 PM CDT) GLUCOSE POC 139(H) 60 - 100 mg/dL [facility] Venous blood specimen (specimen) 04/19/2008 12:04 PM CDT 04/20/2008 7:00 AM CDT us Riky Mejía MD POINT OF CARE TESTING Final Result Performing Organization Address [facility] Phone Number INTERFACE SYSTEM Refer to clinic/hospital department [facility] CLIA# [id number] [address] [place] [address] * (ABNORMAL) POC GLUCOSE (04/19/2008 8:28 AM CDT) GLUCOSE POC 144(H) 60 - 100 mg/dL [facility] Venous blood specimen (specimen) 04/19/2008 8:28 AM CDT 04/20/2008 7:00 AM CDT Riky Mejía MD POINT OF CARE TESTING Final Result INTERFACE SYSTEM Refer to clinic/hospital department [facility] CLIA# [id number] [address] [place] [address] * XR CHEST PA OR AP (04/19/2008 [...] LAB LYMPHOCYTES 15(L) 24 - 44 % [facility] MYELOCYTES 1 <=1 % [facility] MONOCYTE 4 4 - 10 % [facility] NEUTROPHILS, SEG 73(H) 36 - 66 % [facility] POIKILOCYTES 1+(A) None Seen [facility] PLATELET EST. Normal Normal [facility] BANDS 6 0 - 6 % [facility] POLYCHROMASIA Present(A) None Seen [facility] EOSINOPHILS 1 0 - 3 % [facility] Blood specimen (specimen) 04/19/2008 3:20 AM CDT 04/19/2008 3:20 AM CDT Narrative INTERFACE SYSTEM - 04/19/2008 3:58 AM CDT Differential ordered by policy. us Riky Mejía MD HEMATOLOGY ORDERABLES COM F inal Result INTERFACE SYSTEM Refer to clinic/hospital department [facility] CLIA# [id number] [address] [place] [address] * (ABNORMAL) COMPREHENSIVE METABOLIC PANEL (04/19/2008 3:20 AM CDT) GLUCOSE 138(H) 70 - 110 mg/dL [facility] CHLORIDE 94(L) 95 - 110 mEq/L [facility] ALBUMIN/GLOBULIN RATIO 0.9(L) 1.0 - 2.3 [facility] ALKALINE PHOSPHATASE 209(H) 25 - 100 U/L [facility] SODIUM 136 136 - 145 mEq/L [facility] BILIRUBIN TOTAL 1.6(H) 0.3 - 1.2 mg/dL [facility] TOTAL PROTEIN 5.6(L) 6.3 - 8.2 g/dL [facility] BUN 19(H) 7 - 17 mg/dL [facility] AST 73(H) 8 - 33 U/L [facility] CO2 37(H) 22 - 32 mmol/l [facility] ANION GAP 9 9 - 20 mEq/L [facility] ALBUMIN 2.6(L) 3.5 - 5.0 g/dL [facility] POTASSIUM 3.9 3.5 - 5.0 mEq/L [facility] GLOBULIN (CALC) 3.0 2.4 - 3.9 g/dL [facility] CREATININE 0.5(L) 0.7 - 1.2 mg/dL [facility] CALCIUM 8.6 8.4 - 10.5 mg/dL [facility] OSMOLALITY, CALCULATED 285 275 - 295 mOsm/Kg [facility] ALT 68(H) 4 - 36 IU/L [facility] Blood specimen (specimen) 04/19/2008 3:20 AM CDT 04/19/2008 3:20 AM CDT us Riky Mejía MD CHEMISTRY ORDERABLES Final Result INTERFACE SYSTEM Refer to clinic/hospital department [facility] CLIA# [id number] [address] [place] [address] * (ABNORMAL) CBC WITH DIFFERENTIAL (04/19/2008 3:20 AM CDT) WBC 13.9(H) 4.5 - 11.0 K/ul [facility] MCH 29.1 27.0 - 34.[address] [facility] HEMATOCRIT 30.7(L) 36.0 - 46.0 % [facility] PLATELETS 390 140 - 440 K/ul [facility] RBC 3.33(L) 4.20 - 5.40 Mil/ul [facility] MCHC 31.6 30.0 - 35.0 g/dL [facility] MPV 10.2 8.9 - 12.[address] [facility] MCV 92.2 84.0 - 103.[address] [facility] HEMOGLOBIN 9.7(L) 12.0 - 16.0 g/dL [facility] RDW 16.9(H) 11.0 - 14.5 % [facility] Blood specimen (specimen) 04/19/2008 3:20 AM CDT 04/19/2008 3:20 AM CDT Riky Mejía MD HEMATOLOGY ORDERABLES Edite d Performing Organization Address [facility] Phone Number INTERFACE SYSTEM Refer to clinic/hospital department [facility] CLIA# [id number] [address] [place] [address] * POTASSIUM LEVEL (04/18/2008 11:41 PM CDT) POTASSIUM 3.9 3.5 - 5.0 mEq/L [facility] Blood specimen (specimen) 04/18/2008 11:41 PM CDT 04/18/2008 11:41 PM CDT Riky Mejía MD CHEMISTRY ORDERABLES Final Result Performing Organization Address [facility] Phone Number INTERFACE SYSTEM Refer to clinic/hospital department [facility] CLIA# [id number] [address] [place] [address] * POTASSIUM LEVEL (04/18/2008 3:49 PM CDT) POTASSIUM 4.0 3.5 - 5.0 mEq/L [facility] Blood specimen (specimen) 04/18/2008 3:49 PM CDT 04/18/2008 3:49 PM CDT Riky Mejía MD CHEMISTRY ORDERABLES Final Result Performing Organization Address City/[facility] de Phone Number INTERFACE SYSTEM Refer to clinic/hospital department [facility] CLIA# [id number] [address] [place] [address] * (ABNORMAL) POC GLUCOSE (04/18/2008 7:29 AM CDT) Pathologist [facility] GLUCOSE POC 153(H) 60 - 100 mg/dL [facility] Venous blood specimen (specimen) 04/18/2008 7:29 AM CDT 04/19/2008 6:47 AM CDT Riky Mejía MD POINT OF CARE TESTING Final Result Performing Organization Address [facility] de Phone Number INTERFACE SYSTEM Refer to clinic/hospital department [facility] CLIA# [id number] [address] [place] [address] * (ABNORMAL) CBC WITH DIFFERENTIAL (04/18/2008 3:29 AM CDT) [facility] RDW 17.0(H) 11.0 - 14.5 % [facility] BASOPHILS ABSOLUTE 0.2 0.0 - 0.2 K/ul [facility] BASOPHILS 1.0 0.0 - 1.0 % [facility] WBC 14.5(H) 4.5 - 11.0 K/ul [facility] MCH 29.0 27.0 - 34.[address] [facility] MONOCYTE ABSOLUTE 1.1(H) 0.1 - 0.6 K/ul [facility] MONOCYTES 7.3 2.0 - 10.0 % [facility] HEMATOCRIT 30.5(L) 36.0 - 46.0 % [facility] NEUTROPHIL ABSOLUTE 12.1(H) 2.0 - 8.0 K/ul [facility] NEUTROPHILS 83.1(H) 42.2 - 75.2 % [facility] PLATELETS 332 140 - 440 K/ul [facility] RBC 3.31(L) 4.20 - 5.40 Mil/ul [facility] MCHC 31.5 30.0 - 35.0 g/dL [facility] EOSINOPHILS 1.3 0.0 - 7.0 % [facility] PERIPHERAL BLOOD SMEAR REVIEW Automated Diff [facility] EOSINOPHIL ABSOLUTE 0.2 0.0 - 0.7 K/ul [facility] MCV 92.1 84.0 - 103.[address] [facility] LYMPHOCYTES 7.3(L) 24.0 - 44.0 % [facility] MPV 10.3 8.9 - 12.[address] [facility] LYMPHOCYTE ABSOLUTE 1.1(L) 1.2 - 4.0 K/ul [facility] HEMOGLOBIN 9.6(L) 12.0 - 16.0 g/dL [facility] Blood specimen (specimen) 04/18/2008 3:29 AM CDT 04/18/2008 3:35 AM CDT us Riky Mejía MD HEMATOLOGY ORDERABLES Edite d INTERFACE SYSTEM Refer to clinic/hospital department [facility] CLIA# [id number] [address] [place] [address] * (ABNORMAL) COMPREHENSIVE METABOLIC PANEL (04/18/2008 3:29 AM CDT) AST 133(H) 8 - 33 U/L [facility] ALBUMIN/GLOBULIN RATIO 0.9(L) 1.0 - 2.3 [facility] POTASSIUM 4.1 3.5 - 5.0 mEq/L [facility] ANION GAP 6(L) 9 - 20 mEq/L [facility] ALBUMIN 2.4(L) 3.5 - 5.0 g/dL [facility] CREATININE 0.4(L) 0.7 - 1.2 mg/dL [facility] ALT 75(H) 4 - 36 IU/L [facility] CALCIUM 8.6 8.4 - 10.5 mg/dL [facility] GLUCOSE 134(H) 70 - 110 mg/dL [facility] ALKALINE PHOSPHATASE 167(H) 25 - 100 U/L [facility] CHLORIDE 96 95 - 110 mEq/L [facility] OSMOLALITY, CALCULATED 287 275 - 295 mOsm/Kg [facility] GLOBULIN (CALC) 2.8 2.4 - 3.9 g/dL [facility] TOTAL PROTEIN 5.2(L) 6.3 - 8.2 g/dL [facility] SODIUM 137 136 - 145 mEq/L [facility] BILIRUBIN TOTAL 2.1(H) 0.3 - 1.2 mg/dL [facility] CO2 39(H) 22 - 32 mmol/l [facility] BUN 20(H) 7 - 17 mg/dL [facility] Blood specimen (specimen) 04/18/2008 3:29 AM CDT 04/18/2008 3:35 AM CDT us Riky Mejía MD CHEMISTRY ORDERABLES Final Result Performing Organization Address [facility] de Phone Number INTERFACE SYSTEM Refer to clinic/hospital department [facility] CLIA# [id number] [address] [place] [address] * POTASSIUM LEVEL (04/17/2008 6:15 PM CDT) POTASSIUM 3.8 3.5 - 5.0 mEq/L [facility] Blood specimen (specimen) 04/17/2008 6:15 PM CDT 04/17/2008 6:19 PM CDT Narrative INTERFACE SYSTEM - 04/17/2008 6:44 PM CDT stat us Riky Mejía MD CHEMISTRY ORDERABLES Final Result Performing Organization Address City/[facility] de Phone Number INTERFACE SYSTEM Refer to clinic/hospital department [facility] CLIA# [id number] [address] [place] [address] * (ABNORMAL) POC GLUCOSE (04/17/2008 6:10 PM CDT) GLUCOSE POC 103(H) 60 - 100 mg/dL [facility] Venous blood specimen (specimen) 04/17/2008 6:10 PM CDT 04/18/2008 7:19 AM CDT Riky Mejía MD POINT OF CARE TESTING Final Result Performing Organization Address [facility] de Phone Number INTERFACE SYSTEM Refer to clinic/hospital department [facility] CLIA# [id number] [facility] [place] [address] * (ABNORMAL) POC GLUCOSE (04/17/2008 8:18 AM CDT) GLUCOSE POC 149(H) 60 - 100 mg/dL [facility] Venous blood specimen (specimen) 04/17/2008 8:18 AM CDT 04/18/2008 7:18 AM CDT Riky Mejía MD POINT OF CARE TESTING Final Result Performing Organization Address [facility] de Phone Number INTERFACE SYSTEM Refer to clinic/hospital department [facility] CLIA# [id number] [facility] [place] [address] * (ABNORMAL) POC ISTAT EG 7+ (04/17/2008 5:31 AM CDT) SODIUM 138 138 - 146 mEq/L [facility] PH 7.49(H) 7.35 - 7.[address] [facility] PO2 TEMP CORRECT 92 80 - [address] [facility] O2 SATURATION 98 95 - 98 % [facility] SPECIMEN TYPE Arterial [facility] Comment: Test Performed By [id number] Tidal volume: 450 PEEP: 08 Rate: 10 Pulse OX: 100 Hemoglobin calculated from Hematocrit result PCO2 TEMP CORRECT 50(H) 35 - [address] [facility] POTASSIUM 3.6 3.5 - 4.9 mEq/L [facility] HEMOGLOBIN POC 9.5 +/-3 g/dL 12.0 - 16.0 g/dL [facility] PH TEMP CORRECT 7.49(H) 7.35 - 7.[address] [facility] TCO2 (CALC) POC 40(H) 23 - 27 mmol/l [facility] HCO3 (CALC) POC 38.0(H) 22.0 - 26.0 mmol/l [facility] FIO2 30 [facility] HEMATOCRIT ABG 28(L) 38 - 51 % [facility] PO2 92 80 - [address] [facility] CALCIUM IONIZED 1.04(L) 1.12 - 1.32 mmol/l [facility] PCO2 POC 50(H) 35 - [address] [facility] BASE EXCESS 15(H) -2 - 3 mmol/l [facility] Arterial blood specimen (specimen) 04/17/2008 5:31 AM CDT 04/17/2008 6:05 AM CDT Riky Mejía MD POINT OF CARE TESTING COM F inal Result INTERFACE SYSTEM Refer to clinic/hospital department [facility]# [id number] [address] [place] [address] * (ABNORMAL) POC ISTAT EG 7+ (04/17/2008 4:22 AM CDT) PCO2 POC 52(H) 35 - [address] [facility] BASE EXCESS 19(H) -2 - 3 mmol/l [facility] SODIUM 137(L) 138 - 146 mEq/L [facility] PH 7.51(H) 7.35 - 7.[address] [facility] PO2 TEMP CORRECT 448(H) 80 - [address] [facility] O2 SATURATION 100(H) 95 - 98 % [facility] SPECIMEN TYPE Arterial [facility] Comment: Test Performed By [id number] Tidal volume: 500 PEEP: 08 Rate: 12 Pulse OX: 100 Hemoglobin calculated from Hematocrit result PCO2 TEMP CORRECT 52(H) 35 - [address] [facility] POTASSIUM 3.7 3.5 - 4.9 mEq/L [facility] HEMOGLOBIN POC 10.2 +/-3 g/dL 12.0 - 16.0 g/dL [facility] PH TEMP CORRECT 7.51(H) 7.35 - 7.[address] [facility] TCO2 (CALC) POC 44(H) 23 - 27 mmol/l [facility] HCO3 (CALC) POC 41.9(H) 22.0 - 26.0 mmol/l [facility] FIO2 30 [facility] HEMATOCRIT ABG 30(L) 38 - 51 % [facility] PO2 448(H) 80 - [address] [facility] CALCIUM IONIZED 1.01(L) 1.12 - 1.32 mmol/l [facility] Arterial blood specimen (specimen) 04/17/2008 4:22 AM CDT 04/17/2008 5:21 AM CDT us Riky Mejía MD POINT OF CARE TESTING COM F inal Result INTERFACE SYSTEM Refer to clinic/hospital department [facility] CLIA# [id number] [address] [place] [address] * (ABNORMAL) CBC WITH DIFFERENTIAL (04/17/2008 2:07 AM CDT) BASOPHILS ABSOLUTE 0.1 0.0 - 0.2 K/ul [facility] BASOPHILS 0.8 0.0 - 1.0 % [facility] HEMOGLOBIN 9.4(L) 12.0 - 16.0 g/dL [facility] RDW 16.7(H) 11.0 - 14.5 % [facility] MONOCYTE ABSOLUTE 1.1(H) 0.1 - 0.6 K/ul [facility] MONOCYTES 7.2 2.0 - 10.0 % [facility] WBC 14.8(H) 4.5 - 11.0 K/ul [facility] MCH 29.2 27.0 - 34.[address] [facility] NEUTROPHIL ABSOLUTE 12.7(H) 2.0 - 8.0 K/ul [facility] NEUTROPHILS 86.0(H) 42.2 - 75.2 % [facility] HEMATOCRIT 28.9(L) 36.0 - 46.0 % [facility] EOSINOPHILS 1.2 0.0 - 7.0 % [facility] PLATELETS 287 140 - 440 K/ul [facility] PERIPHERAL BLOOD SMEAR REVIEW Automated Diff [facility] EOSINOPHIL ABSOLUTE 0.2 0.0 - 0.7 K/ul [facility] RBC 3.22(L) 4.20 - 5.40 Mil/ul [facility] LYMPHOCYTES 4.8(L) 24.0 - 44.0 % [facility] MCHC 32.5 30.0 - 35.0 g/dL [facility] LYMPHOCYTE ABSOLUTE 0.7(L) 1.2 - 4.0 K/ul [facility] MCV 89.8 84.0 - 103.[address] [facility] MPV 10.3 8.9 - 12.[address] [facility] Blood specimen (specimen) 04/17/2008 2:07 AM CDT 04/17/2008 2:12 AM CDT Riky Mejía MD HEMATOLOGY ORDERABLES Final Result INTERFACE SYSTEM Refer to clinic/hospital department [facility] CLIA# [id number] [address] [place] [address] * PHOSPHORUS (04/17/2008 2:07 AM CDT) PHOSPHORUS 3.0 2.5 - 4.6 mg/dL [facility] Blood specimen (specimen) 04/17/2008 2:07 AM CDT 04/17/2008 2:12 AM CDT Riky Mejía MD CHEMISTRY ORDERABLES Final Result Performing Organization Address City/State/[facility] Co de Phone Number INTERFACE SYSTEM Refer to clinic/hospital department [facility] CLIA# [id number] [facility] [place] [address] * (ABNORMAL) COMPREHENSIVE METABOLIC PANEL (04/17/2008 2:07 AM CDT) Pathologist [facility] GLOBULIN (CALC) 2.7 2.4 - 3.9 g/dL [facility] SODIUM 141 136 - 145 mEq/L [facility] BILIRUBIN TOTAL 2.6(H) 0.3 - 1.2 mg/dL [facility] TOTAL PROTEIN 4.9(L) 6.3 - 8.2 g/dL [facility] BUN 16 7 - 17 mg/dL [facility] AST 52(H) 8 - 33 U/L [facility] CO2 36(H) 22 - 32 mmol/l [facility] ALBUMIN/GLOBULIN RATIO 0.8(L) 1.0 - 2.3 [facility] ALBUMIN 2.2(L) 3.5 - 5.0 g/dL [facility] POTASSIUM 3.6 3.5 - 5.0 mEq/L [facility] ANION GAP 7(L) 9 - 20 mEq/L [facility] CALCIUM 7.9(L) 8.4 - 10.5 mg/dL [facility] CREATININE 0.5(L) 0.7 - 1.2 mg/dL [facility] ALT 37(H) 4 - 36 IU/L [facility] GLUCOSE 131(H) 70 - 110 mg/dL [facility] CHLORIDE 102 95 - 110 mEq/L [facility] OSMOLALITY, CALCULATED 292 275 - 295 mOsm/Kg [facility] ALKALINE PHOSPHATASE 122(H) 25 - 100 U/L [facility] Blood specimen (specimen) 04/17/2008 2:07 AM CDT 04/17/2008 2:12 AM CDT Riky Mejía MD CHEMISTRY ORDERABLES Final Result Performing Organization Address [facility] Phone Number INTERFACE SYSTEM Refer to clinic/hospital department [facility] CLIA# [id number] [address] [place] [address] * (ABNORMAL) TRIGLYCERIDE (04/17/2008 2:07 AM CDT) TRIGLYCERIDE 326(H) 0 - 150 mg/dL [facility] Comment: On 11/10/2007, [facility] changed the triglyceride reference range to 0-150 mg/dl. This is the recommendation of the National Cholesterol Education Program (NCEP-ATPIII). Blood specimen (specimen) 04/17/2008 2:07 AM CDT 04/17/2008 2:12 AM CDT Riky Mejía MD CHEMISTRY ORDERABLES Final Result Performing Organization Address [facility] Phone Number INTERFACE SYSTEM Refer to clinic/hospital department [facility] CLIA# [id number] [address] [place] [address] * (ABNORMAL) POC GLUCOSE (04/16/2008 6:56 PM CDT) GLUCOSE POC 151(H) 60 - 100 mg/dL [facility] Venous blood specimen (specimen) 04/16/2008 6:56 PM CDT 04/17/2008 12:06 PM CDT Riky Mejía MD POINT OF CARE TESTING Final Result Performing Organization Address [facility] Phone Number INTERFACE SYSTEM Refer to clinic/hospital department [facility] CLIA# [id number] [address] [place] [address] * POTASSIUM LEVEL (04/16/2008 4:43 PM CDT) POTASSIUM 3.7 3.5 - 5.0 mEq/L [facility] Comment: Specimen slightly hemolyzed. Slight icteric. Blood specimen (specimen) 04/16/2008 4:43 PM CDT 04/16/2008 4:43 PM CDT Riky Mejía MD CHEMISTRY ORDERABLES Final Result INTERFACE SYSTEM Refer to clinic/hospital department [facility] CLIA# [id number] [address] [place] [address] * (ABNORMAL) POC ISTAT EG 7+ (04/16/2008 12:11 PM CDT) POTASSIUM 3.5 3.5 - 4.9 mEq/L [facility] SPECIMEN TYPE Arterial [facility] Comment: Test Performed By [id number] Pulse OX: 97 Hemoglobin calculated from Hematocrit result PCO2 TEMP CORRECT 59(H) 35 - [address] [facility] HEMOGLOBIN POC 9.9 +/-3 g/dL 12.0 - 16.0 g/dL [facility] PH TEMP CORRECT 7.39 7.35 - 7.[address] [facility] HCO3 (CALC) POC 35.3(H) 22.0 - 26.0 mmol/l [facility] CALCIUM IONIZED 1.10(L) 1.12 - 1.32 mmol/l [facility] TCO2 (CALC) POC 37(H) 23 - 27 mmol/l [facility] FIO2 40 [facility] PO2 93 80 - [address] [facility] HEMATOCRIT ABG 29(L) 38 - 51 % [facility] PCO2 POC 59(H) 35 - [address] [facility] SODIUM 135(L) 138 - 146 mEq/L [facility] BASE EXCESS 10(H) -2 - 3 mmol/l [facility] PH 7.39 7.35 - 7.[address] [facility] O2 SATURATION 97 95 - 98 % [facility] PO2 TEMP CORRECT 93 80 - [address] [facility] Arterial blood specimen (specimen) 04/16/2008 12:11 PM CDT 04/16/2008 12:15 PM CDT Riky Mejía MD POINT OF CARE TESTING COM F inal Result Performing Organization Address City/[facility] de Phone Number INTERFACE SYSTEM Refer to clinic/hospital department [facility] CLIA# [id number] [address] [place] [address] * (ABNORMAL) POC GLUCOSE (04/16/2008 7:40 AM CDT) GLUCOSE POC 166(H) 60 - 100 mg/dL [facility] Venous blood specimen (specimen) 04/16/2008 7:40 AM CDT 04/17/2008 12:06 PM CDT Riky Mejía MD POINT OF CARE TESTING Final Result Performing Organization Address [facility] Phone Number INTERFACE SYSTEM Refer to clinic/hospital department [facility] CLIA# [id number] [address] [place] [address] * (ABNORMAL) POC ISTAT EG 7+ (04/16/2008 5:16 AM CDT) CALCIUM IONIZED 1.12 1.12 - 1.32 mmol/l [facility] PCO2 POC 46(H) 35 - [address] [facility] BASE EXCESS 10(H) -2 - 3 mmol/l [facility] SODIUM 133(L) 138 - 146 mEq/L [facility] PH 7.47(H) 7.35 - 7.[address] [facility] PO2 TEMP CORRECT 83 80 - [address] [facility] O2 SATURATION 97 95 - 98 % [facility] SPECIMEN TYPE Arterial [facility] Comment: Test Performed By [id number] Tidal volume: 500 PEEP: 06 Rate: 12 Pulse OX: 97 Hemoglobin calculated from Hematocrit result PCO2 TEMP CORRECT 46(H) 35 - [address] [facility] POTASSIUM 3.0(L) 3.5 - 4.9 mEq/L [facility] HEMOGLOBIN POC 9.2 +/-3 g/dL 12.0 - 16.0 g/dL [facility] PH TEMP CORRECT 7.47(H) 7.35 - 7.[address] [facility] TCO2 (CALC) POC 35(H) 23 - 27 mmol/l [facility] HCO3 (CALC) POC 33.4(H) 22.0 - 26.0 mmol/l [facility] FIO2 30 [facility] HEMATOCRIT ABG 27(L) 38 - 51 % [facility] PO2 83 80 - [address] [facility] Arterial blood specimen (specimen) 04/16/2008 5:16 AM CDT 04/16/2008 5:51 AM CDT us Riky Mejía MD POINT OF CARE TESTING COM F inal Result INTERFACE SYSTEM Refer to clinic/hospital department [facility] CLIA# [id number] [address] [place] [address] * (ABNORMAL) POC GLUCOSE (04/16/2008 5:12 AM CDT) GLUCOSE POC 151(H) 60 - 100 mg/dL [facility] Venous blood specimen (specimen) 04/16/2008 5:12 AM CDT 04/16/2008 6:51 AM CDT us Riky Mejía MD POINT OF CARE TESTING Final Result INTERFACE SYSTEM Refer to clinic/hospital department [facility] CLIA# [id number] [address] [place] [address] * XR CHEST PA OR AP (04/16/2008 [...] CDT) LYMPHOCYTES 5.4(L) 24.0 - 44.0 % [facility] MCHC 33.3 30.0 - 35.0 g/dL [facility] LYMPHOCYTE ABSOLUTE 1.1(L) 1.2 - 4.0 K/ul [facility] MCV 88.4 84.0 - 103.[address] [facility] MPV 10.1 8.9 - 12.[address] [facility] BASOPHILS ABSOLUTE 0.1 0.0 - 0.2 K/ul [facility] BASOPHILS 0.3 0.0 - 1.0 % [facility] HEMOGLOBIN 9.4(L) 12.0 - 16.0 g/dL [facility] RDW 16.2(H) 11.0 - 14.5 % [facility] MONOCYTE ABSOLUTE 0.7(H) 0.1 - 0.6 K/ul [facility] MONOCYTES 3.3 2.0 - 10.0 % [facility] WBC 19.6(H) 4.5 - 11.0 K/ul [facility] MCH 29.5 27.0 - 34.[address] [facility] NEUTROPHIL ABSOLUTE 17.6(H) 2.0 - 8.0 K/ul [facility] NEUTROPHILS 89.9(H) 42.2 - 75.2 % [facility] HEMATOCRIT 28.2(L) 36.0 - 46.0 % [facility] EOSINOPHILS 1.1 0.0 - 7.0 % [facility] PLATELETS 292 140 - 440 K/ul [facility] PERIPHERAL BLOOD SMEAR REVIEW Automated Diff [facility] EOSINOPHIL ABSOLUTE 0.2 0.0 - 0.7 K/ul [facility] RBC 3.19(L) 4.20 - 5.40 Mil/ul [facility] Blood specimen (specimen) 04/16/2008 3:20 AM CDT 04/16/2008 3:26 AM CDT us Riky Mejía MD HEMATOLOGY ORDERABLES Final Result INTERFACE SYSTEM Refer to clinic/hospital department [facility] CLIA# [id number] [address] [place] [address] * (ABNORMAL) COMPREHENSIVE METABOLIC PANEL (04/16/2008 3:20 AM CDT) AST 58(H) 8 - 33 U/L [facility] CO2 32 22 - 32 mmol/l [facility] ALBUMIN/GLOBULIN RATIO 0.9(L) 1.0 - 2.3 [facility] ALBUMIN 2.2(L) 3.5 - 5.0 g/dL [facility] POTASSIUM 2.9(AA) 3.5 - 5.0 mEq/L [facility] Comment: Potentially critical/toxic K called by GS to JOCELYNE DILLARD, with verbal read back, at 04/16/08 04:21. ANION GAP 9 9 - 20 mEq/L [facility] CALCIUM 8.2(L) 8.4 - 10.5 mg/dL [facility] CREATININE 0.6(L) 0.7 - 1.2 mg/dL [facility] ALT 37(H) 4 - 36 IU/L [facility] GLUCOSE 148(H) 70 - 110 mg/dL [facility] CHLORIDE 98 95 - 110 mEq/L [facility] OSMOLALITY, CALCULATED 283 275 - 295 mOsm/Kg [facility] ALKALINE PHOSPHATASE 105(H) 25 - 100 U/L [facility] GLOBULIN (CALC) 2.5 2.4 - 3.9 g/dL [facility] SODIUM 136 136 - 145 mEq/L ST. [facility] BILIRUBIN TOTAL 4.4(H) 0.3 - 1.2 mg/dL [facility] TOTAL PROTEIN 4.7(L) 6.3 - 8.2 g/dL [facility] BUN 17 7 - 17 mg/dL [facility] Blood specimen (specimen) 04/16/2008 3:20 AM CDT 04/16/2008 3:26 AM CDT us Riky Mejía MD CHEMISTRY ORDERABLES Final Result Performing Organization Address [facility] Phone Number INTERFACE SYSTEM Refer to clinic/hospital department [facility] CLIA# [id number] [address] [place] [address] * (ABNORMAL) POC GLUCOSE (04/15/2008 6:36 PM CDT) GLUCOSE POC 110(H) 60 - 100 mg/dL [facility] Venous blood specimen (specimen) 04/15/2008 6:36 PM CDT 04/16/2008 6:51 AM CDT us Riky Mejía MD POINT OF CARE TESTING Final Result Performing Organization Address [facility] Phone Number INTERFACE SYSTEM Refer to clinic/hospital department [facility] CLIA# [id number] [address] [place] [address] * (ABNORMAL) HEMOGLOBIN AND HEMATOCRIT (04/15/2008 4:00 PM CDT) HEMOGLOBIN 7.8(L) 12.0 - 16.0 g/dL [facility] HEMATOCRIT 24.1(L) 36.0 - 46.0 % [facility] Blood specimen (specimen) 04/15/2008 4:00 PM CDT 04/15/2008 4:00 PM CDT us Riky Mejía MD HEMATOLOGY ORDERABLES Final Result Performing Organization Address [facility] Phone Number INTERFACE SYSTEM Refer to clinic/hospital department [facility] CLIA# [id number] [address] [place] [address] * (ABNORMAL) VANCOMYCIN LEVEL TROUGH (04/15/2008 9:53 AM CDT) VANCOMYCIN, TROUGH 18.3(H) 5.0 - 15.0 mcg/mL [facility] Blood specimen (specimen) 04/15/2008 9:53 AM CDT 04/15/2008 9:53 AM CDT Riky Mejía MD CHEMISTRY ORDERABLES Final Result Performing Organization Address [facility] Phone Number INTERFACE SYSTEM Refer to clinic/hospital department [facility] CLIA# [id number] [address] [place] [address] * (ABNORMAL) TRIGLYCERIDE (04/15/2008 9:53 AM CDT) TRIGLYCERIDE 435(H) 0 - 150 mg/dL [facility] Comment: On 11/10/2007, [facility] changed the triglyceride reference range to 0-150 mg/dl. This is the recommendation of the National Cholesterol Education Program (NCEP-ATPIII). Blood specimen (specimen) 04/15/2008 9:53 AM CDT 04/15/2008 9:53 AM CDT Riky Mejía MD CHEMISTRY ORDERABLES Final Result Performing Organization Address [facility] Phone Number INTERFACE SYSTEM Refer to clinic/hospital department [facility] CLIA# [id number] [address] [place] [address] * PROTIME-INR (04/15/2008 9:53 AM CDT) PROTIME 15.2 12.8 - 15.[address] [facility] Comment:As of 2007 not e change in normal range. INR 1.1 [facility] Comment: Expected Values for INR: [...] Anticoagulation available from the pharmacy [facility] [phone] Blood specimen (specimen) 04/15/2008 9:53 AM CDT 04/15/2008 9:53 AM CDT Riky Mejía MD HEMATOLOGY ORDERABLES Final Result Performing Organization Address [facility] Phone Number INTERFACE SYSTEM Refer to clinic/hospital department [facility] CLIA# [id number] [address] [place] [address] * (ABNORMAL) TRANSFERRIN (04/15/2008 9:53 AM CDT) TRANSFERRIN 59.0(L) 204.0 - 376.0 mg/dL [facility] Comment: Specimen slightly hemolyzed Blood specimen (specimen) 04/15/2008 9:53 AM CDT 04/15/2008 9:53 AM CDT Riky Mejía MD CHEMISTRY ORDERABLES Final Result Performing Organization Address [facility] Phone Number INTERFACE SYSTEM Refer to clinic/hospital [facility] CLIA# [id number] [address] [place] [address] * (ABNORMAL) PREALBUMIN (04/15/2008 9:53 AM CDT) PREALBUMIN <5.0(L) 14.0 - 32.0 mg/dL [facility] Comment: Test Repeated; Results confirmed Blood specimen (specimen) 04/15/2008 9:53 AM CDT 04/15/2008 9:53 AM CDT Riky Mejía MD CHEMISTRY ORDERABLES Final Result Performing Organization Address [facility] Phone Number INTERFACE SYSTEM Refer to clinic/hospital [facility] CLIA# [id number] [address] [place] [address] * PHOSPHORUS (04/15/2008 9:53 AM CDT) PHOSPHORUS 3.9 2.5 - 4.6 mg/dL [facility] Blood specimen (specimen) 04/15/2008 9:53 AM CDT 04/15/2008 9:53 AM CDT us Riky Mejía MD CHEMISTRY ORDERABLES Edited Performing Organization Address [facility] Phone Number INTERFACE SYSTEM Refer to clinic/hospital department [facility] CLIA# [id number] [address] [place] [address] * (ABNORMAL) MAGNESIUM LEVEL (04/15/2008 9:53 AM CDT) MAGNESIUM 1.3(L) 1.7 - 2.4 mg/dL [facility] Blood specimen (specimen) 04/15/2008 9:53 AM CDT 04/15/2008 9:53 AM CDT us Riky Mejía MD CHEMISTRY ORDERABLES Edited Performing Organization Address [facility] de Phone Number INTERFACE SYSTEM Refer to clinic/hospital department [facility] CLIA# [id number] [address] [place] [address] * (ABNORMAL) POC ISTAT EG 7+ (04/15/2008 4:13 AM CDT) PH 7.49(H) 7.35 - 7.[address] [facility] PO2 TEMP CORRECT 68(L) 80 - [address] [facility] O2 SATURATION 94(L) 95 - 98 % [facility] SPECIMEN TYPE Arterial [facility] Comment: Test Performed By [id number] Tidal volume: 500 PEEP: 06 Rate: 12 Pulse OX: 98 Hemoglobin calculated from Hematocrit result PCO2 TEMP CORRECT 48(H) 35 - [address] [facility] POTASSIUM 3.4(L) 3.5 - 4.9 mEq/L [facility] HEMOGLOBIN POC 9.2 +/-3 g/dL 12.0 - 16.0 g/dL [facility] PH TEMP CORRECT 7.49(H) 7.35 - 7.[address] [facility] TCO2 (CALC) POC 38(H) 23 - 27 mmol/l [facility] HCO3 (CALC) POC 36.7(H) 22.0 - 26.0 mmol/l [facility] FIO2 30 [facility] HEMATOCRIT ABG 27(L) 38 - 51 % [facility] PO2 68(L) 80 - [address] [facility] CALCIUM IONIZED 1.06(L) 1.12 - 1.32 mmol/l [facility] PCO2 POC 48(H) 35 - [address] [facility] BASE EXCESS 13(H) -2 - 3 mmol/l [facility] SODIUM 133(L) 138 - 146 mEq/L [facility] Arterial blood specimen (specimen) 04/15/2008 4:13 AM CDT 04/15/2008 4:27 AM CDT Riky Mejía MD POINT OF CARE TESTING COM F inal Result INTERFACE SYSTEM Refer to clinic/hospital department [facility]# [id number] [address] [place] [address] * XR CHEST PA OR AP (04/15/2008 [...] By: April Chaparro M.D. Date Signed: 04/15/08 [facility] Procedure Note April Chaparro MD - 04/15/2008 Exam: Chest - Portable Date/Time of Exam: Apr 15, 2008 4:08:09 AM History: Postoperative. Findings: Comparison study 04/14/08. Life support lines stable in position.Decreased lung volumes with bibasilar plate atelectasis. Cardiac silhouette stable and within normallimits. Impression: No significant change. - Dictated By: April Chaparro M.D. Electronically Signed By: April Chaparro M.D. Date Signed: 04/15/08 [facility] Heriberto Carrera MD DIAGNOSTIC IMAGING ORDERABLES Fi nal Result * (ABNORMAL) COMPREHENSIVE METABOLIC PANEL (04/15/2008 3:17 AM CDT) CALCIUM 7.9(L) 8.4 - 10.5 mg/dL [facility] CREATININE 0.6(L) 0.7 - 1.2 mg/dL [facility] ALT 40(H) 4 - 36 IU/L [facility] GLUCOSE 106 70 - 110 mg/dL [facility] CHLORIDE 95 95 - 110 mEq/L [facility] OSMOLALITY, CALCULATED 285 275 - 295 mOsm/Kg [facility] ALKALINE PHOSPHATASE 102(H) 25 - 100 U/L [facility] GLOBULIN (CALC) 2.5 2.4 - 3.9 g/dL [facility] SODIUM 137 136 - 145 mEq/L [facility] BILIRUBIN TOTAL 4.3(H) 0.3 - 1.2 mg/dL [facility] Comment: slightly icteric TOTAL PROTEIN 4.5(L) 6.3 - 8.2 g/dL [facility] BUN 20(H) 7 - 17 mg/dL [facility] AST 73(H) 8 - 33 U/L [facility] CO2 36(H) 22 - 32 mmol/l [facility] ALBUMIN/GLOBULIN RATIO 0.8(L) 1.0 - 2.3 [facility] ALBUMIN 2.0(L) 3.5 - 5.0 g/dL [facility] POTASSIUM 3.7 3.5 - 5.0 mEq/L [facility] ANION GAP 10 9 - 20 mEq/L [facility] Blood specimen (specimen) 04/15/2008 3:17 AM CDT 04/15/2008 3:36 AM CDT us Petr Carrillo MD CHEMISTRY ORDERABLES Final Re sult INTERFACE SYSTEM Refer to clinic/hospital department [facility] CLIA# [id number] [address] [place] [address] * (ABNORMAL) CBC WITH DIFFERENTIAL (04/15/2008 3:17 AM CDT) NEUTROPHIL ABSOLUTE 15.2(H) 2.0 - 8.0 K/ul [facility] HEMATOCRIT 26.7(L) 36.0 - 46.0 % [facility] PLATELETS 428 140 - 440 K/ul [facility] EOSINOPHIL ABSOLUTE 0.2 0.0 - 0.7 K/ul [facility] EOSINOPHILS 0.8 0.0 - 7.0 % [facility] PERIPHERAL BLOOD SMEAR REVIEW Automated Diff [facility] RBC 3.02(L) 4.20 - 5.40 Mil/ul [facility] MCHC 32.2 30.0 - 35.0 g/dL [facility] LYMPHOCYTE ABSOLUTE 1.3 1.2 - 4.0 K/ul [facility] LYMPHOCYTES 7.4(L) 24.0 - 44.0 % [facility] MCV 88.4 84.0 - 103.[address] [facility] BASOPHILS 0.5 0.0 - 1.0 % [facility] MPV 10.1 8.9 - 12.[address] [facility] BASOPHILS ABSOLUTE 0.1 0.0 - 0.2 K/ul [facility] HEMOGLOBIN 8.6(L) 12.0 - 16.0 g/dL [facility] MONOCYTES 5.6 2.0 - 10.0 % [facility] RDW 16.7(H) 11.0 - 14.5 % [facility] MONOCYTE ABSOLUTE 1.0(H) 0.1 - 0.6 K/ul [facility] WBC 17.7(H) 4.5 - 11.0 K/ul [facility] NEUTROPHILS 85.7(H) 42.2 - 75.2 % [facility] MCH 28.5 27.0 - 34.[address] [facility] Blood specimen (specimen) 04/15/2008 3:17 AM CDT 04/15/2008 3:40 AM CDT us Petr Carrillo MD HEMATOLOGY ORDERABLES Final R esult INTERFACE SYSTEM Refer to clinic/hospital department [facility]# [id number] [address] [place] [address] * XR CHEST PA OR AP (04/14/2008 [...] Ari Ly Jr., M.D. Date Signed: 04/14/08 [facility] Procedure Note Ari Ly Jr. - 04/14/2008 [...] Ari Ly Jr., M.D. Date Signed: 04/14/08 [facility] us Riky Mejía MD DIAGNOSTIC IMAGING ORDERABL ES Final Result * (ABNORMAL) POC ISTAT EG 7+ (04/14/2008 3:23 AM CDT) SODIUM 134(L) 138 - 146 mEq/L [facility] PH 7.60(AA) 7.35 - 7.[address] [facility] PO2 TEMP CORRECT 92 80 - [address] [facility] O2 SATURATION 98 95 - 98 % [facility] SPECIMEN TYPE Arterial [facility] Comment: Test Performed By [id number] Critical result performed at the point of care. Pulse OX: 98 Hemoglobin calculated from Hematocrit result PCO2 TEMP CORRECT 41 35 - [address] [facility] POTASSIUM 3.9 3.5 - 4.9 mEq/L [facility] HEMOGLOBIN POC 10.9 +/-3 g/dL 12.0 - 16.0 g/dL [facility] PH TEMP CORRECT 7.60(AA) 7.35 - 7.[address] [facility] TCO2 (CALC) POC 41(H) 23 - 27 mmol/l [facility] HCO3 (CALC) POC 39.9(H) 22.0 - 26.0 mmol/l [facility] FIO2 45 [facility] HEMATOCRIT ABG 32(L) 38 - 51 % [facility] PO2 92 80 - [address] [facility] CALCIUM IONIZED 1.03(L) 1.12 - 1.32 mmol/l [facility] PCO2 POC 41 35 - [address] [facility] BASE EXCESS 18(H) -2 - 3 mmol/l [facility] Arterial blood specimen (specimen) 04/14/2008 3:23 AM CDT 04/14/2008 5:44 AM CDT us Riky Mejía MD POINT OF CARE TESTING COM F inal Result INTERFACE SYSTEM Refer to clinic/hospital department [facility] CLIA# [id number] [address] [place] [address] * (ABNORMAL) DIFFERENTIAL, MANUAL (04/14/2008 1:37 AM CDT) NEUTROPHILS, SEG 57 36 - 66 % [facility] METAMYELOCYTE 1 0 - 1 % [facility] POIKILOCYTES 1+(A) None Seen [facility] MONOCYTE 5 4 - 10 % [facility] RBC MORPHOLOGY Abnormal(A ) Normal [facility] BANDS 27(H) 0 - 6 % [facility] POLYCHROMASIA Present(A) None Seen [facility] MYELOCYTES 1 <=1 % [facility] EOSINOPHILS 1 0 - 3 % [facility] ANISOCYTOSIS 1+(A) None Seen [facility] LYMPHOCYTES 8(L) 24 - 44 % [facility] PLATELET EST. Normal Normal [facility] Comment: OCC PLATELET CLUMPS NOTED ON REVIEW OF SMEAR. Blood specimen (specimen) 04/14/2008 1:37 AM CDT 04/14/2008 1:40 AM CDT Narrative INTERFACE SYSTEM - 04/14/2008 2:01 AM CDT Differential ordered by policy. Riky Mejía MD HEMATOLOGY ORDERABLES COM F inal Result INTERFACE SYSTEM Refer to clinic/hospital department [facility] CLIA# [id number] [address] [place] [address] * (ABNORMAL) BASIC METABOLIC PANEL (04/14/2008 1:37 AM CDT) CALCIUM 8.1(L) 8.4 - 10.5 mg/dL [facility] GLUCOSE 108 70 - 110 mg/dL [facility] CHLORIDE 95 95 - 110 mEq/L [facility] ANION GAP 8(L) 9 - 20 mEq/L [facility] SODIUM 137 136 - 145 mEq/L [facility] BUN 26(H) 7 - 17 mg/dL [facility] CO2 38(H) 22 - 32 mmol/l [facility] POTASSIUM 4.1 3.5 - 5.0 mEq/L [facility] OSMOLALITY, CALCULATED 288 275 - 295 mOsm/Kg [facility] CREATININE 0.8 0.7 - 1.2 mg/dL [facility] Blood specimen (specimen) 04/14/2008 1:37 AM CDT 04/14/2008 1:40 AM CDT us Riky Mejía MD CHEMISTRY ORDERABLES Final Result Performing Organization Address [facility] Phone Number INTERFACE SYSTEM Refer to clinic/hospital department [facility] CLIA# [id number] [address] [place] [address] * (ABNORMAL) CBC WITH DIFFERENTIAL (04/14/2008 1:37 AM CDT) HEMATOCRIT 33.4(L) 36.0 - 46.0 % [facility] PLATELETS 429 140 - 440 K/ul [facility] RBC 3.77(L) 4.20 - 5.40 Mil/ul [facility] MCHC 33.2 30.0 - 35.0 g/dL [facility] MPV 10.1 8.9 - 12.[address] [facility] MCV 88.6 84.0 - 103.[address] [facility] HEMOGLOBIN 11.1(L) 12.0 - 16.0 g/dL [facility] RDW 16.4(H) 11.0 - 14.5 % [facility] WBC 16.6(H) 4.5 - 11.0 K/ul [facility] MCH 29.4 27.0 - 34.[address] [facility] Blood specimen (specimen) 04/14/2008 1:37 AM CDT 04/14/2008 1:40 AM CDT us Riky Mejía MD HEMATOLOGY ORDERABLES Edite d Performing Organization Address [facility] de Phone Number INTERFACE SYSTEM Refer to clinic/hospital department [facility] CLIA# [id number] [address] [place] [address] * LACTIC ACID (04/13/2008 9:12 PM CDT) LACTIC ACID 1.4 0.5 - 2.2 mEq/L [facility] Blood specimen (specimen) 04/13/2008 9:12 PM CDT 04/13/2008 9:18 PM CDT us Riky Mejía MD CHEMISTRY ORDERABLES Final Result INTERFACE SYSTEM Refer to clinic/hospital department [facility] CLIA# [id number] [facility] [place] [address] * (ABNORMAL) POC ISTAT EG 7+ (04/13/2008 8:41 PM CDT) Pathologist [facility] POTASSIUM 3.8 3.5 - 4.9 mEq/L [facility] PH TEMP CORRECT 7.51(H) 7.35 - 7.[address] [facility] HCO3 (CALC) POC 43.9(H) 22.0 - 26.0 mmol/l [facility] TCO2 (CALC) POC 46(H) 23 - 27 mmol/l [facility] FIO2 55 [facility] PO2 129(H) 80 - [address] [facility] CALCIUM IONIZED 1.05(L) 1.12 - 1.32 mmol/l [facility] HEMATOCRIT ABG 36(L) 38 - 51 % [facility] PCO2 POC 56(H) 35 - [address] [facility] SODIUM 135(L) 138 - 146 mEq/L [facility] BASE EXCESS 21(H) -2 - 3 mmol/l [facility] PH 7.51(H) 7.35 - 7.[address] [facility] O2 SATURATION 99(H) 95 - 98 % [facility] PO2 TEMP CORRECT 129(H) 80 - [address] [facility] SPECIMEN TYPE Arterial [facility] Comment: Test Performed By [id number] PEEP: 10 Rate: 12 Pulse OX: 100 Hemoglobin calculated from Hematocrit result PCO2 TEMP CORRECT 56(H) 35 - [address] [facility] HEMOGLOBIN POC 12.2 +/-3 g/dL 12.0 - 16.0 g/dL [facility] Arterial blood specimen (specimen) 04/13/2008 8:41 PM CDT 04/13/2008 8:44 PM CDT Riky Mejía MD POINT OF CARE TESTING COM F inal Result Performing Organization Address [facility] de Phone Number INTERFACE SYSTEM Refer to clinic/hospital department [facility] CLIA# [id number] [address] [place] [address] * (ABNORMAL) POC GLUCOSE (04/13/2008 8:33 PM CDT) GLUCOSE POC 115(H) 60 - 100 mg/dL [facility] Venous blood specimen (specimen) 04/13/2008 8:33 PM CDT 04/14/2008 5:56 AM CDT Riky Mejía MD POINT OF CARE TESTING Final Result Performing Organization Address [facility] de Phone Number INTERFACE SYSTEM Refer to clinic/hospital department [facility] CLIA# [id number] [address] [place] [address] * (ABNORMAL) BASIC METABOLIC PANEL (04/13/2008 7:58 PM CDT) GLUCOSE 118(H) 70 - 110 mg/dL [facility] CHLORIDE 94(L) 95 - 110 mEq/L [facility] ANION GAP <9 9 - 20 mEq/L [facility] SODIUM 139 136 - 145 mEq/L [facility] BUN 17 7 - 17 mg/dL [facility] CO2 >40(H) 22 - 32 mmol/l [facility] POTASSIUM 3.9 3.5 - 5.0 mEq/L [facility] OSMOLALITY, CALCULATED 288 275 - 295 mOsm/Kg [facility] CREATININE 0.5(L) 0.7 - 1.2 mg/dL [facility] CALCIUM 8.4 8.4 - 10.5 mg/dL [facility] Blood specimen (specimen) 04/13/2008 7:58 PM CDT 04/13/2008 8:01 PM CDT Riky Mejía MD CHEMISTRY ORDERABLES Final Result INTERFACE SYSTEM Refer to clinic/hospital department [facility] CLIA# [id number] [address] [place] [address] * (ABNORMAL) CBC WITH DIFFERENTIAL (04/13/2008 7:58 PM CDT) MCV 91.0 84.0 - 103.[address] [facility] MPV 10.3 8.9 - 12.[address] [facility] BASOPHILS ABSOLUTE 0.1 0.0 - 0.2 K/ul [facility] BASOPHILS 0.4 0.0 - 1.0 % [facility] HEMOGLOBIN 11.6(L) 12.0 - 16.0 g/dL [facility] RDW 16.6(H) 11.0 - 14.5 % [facility] MONOCYTE ABSOLUTE 0.7(H) 0.1 - 0.6 K/ul [facility] MONOCYTES 4.2 2.0 - 10.0 % [facility] WBC 16.1(H) 4.5 - 11.0 K/ul [facility] MCH 29.7 27.0 - 34.[address] [facility] NEUTROPHIL ABSOLUTE 14.1(H) 2.0 - 8.0 K/ul [facility] NEUTROPHILS 87.4(H) 42.2 - 75.2 % [facility] HEMATOCRIT 35.6(L) 36.0 - 46.0 % [facility] EOSINOPHILS 0.9 0.0 - 7.0 % [facility] PLATELETS 430 140 - 440 K/ul [facility] EOSINOPHIL ABSOLUTE 0.1 0.0 - 0.7 K/ul [facility] RBC 3.91(L) 4.20 - 5.40 Mil/ul [facility] LYMPHOCYTES 7.1(L) 24.0 - 44.0 % [facility] MCHC 32.6 30.0 - 35.0 g/dL [facility] LYMPHOCYTE ABSOLUTE 1.1(L) 1.2 - 4.0 K/ul [facility] Blood specimen (specimen) 04/13/2008 7:58 PM CDT 04/13/2008 8:01 PM CDT us Riky Mejía MD HEMATOLOGY ORDERABLES Final Result Performing Organization Address City/State/[facility] Phone Number INTERFACE SYSTEM Refer to clinic/hospital department [facility]# [id number] [address] [place] [address] * XR CHEST PA OR AP (04/13/2008 [...] radiopaque tubes and lines that overlie the [id number]. There is vascular congestion, and there is [...] radiopaque tubes and lines that overlie the [id number]. There is vascular congestion,and there is likely a right lower lobe infiltrate that obscures the right diaphragm. - Dictated By: Riky Jarvis M.D. Electronically Signed By: Riky Jarvis M.D. Date Signed: 04/13/08 Riky Mejía MD DIAGNOSTIC IMAGING ORDERABL ES Final Result * (ABNORMAL) POC ISTAT EG 7+ (04/13/2008 6:02 PM CDT) TEMPERATURE 37.9 DegC [facility] PO2 138(H) 80 - [address] [facility] CALCIUM IONIZED 1.06(L) 1.12 - 1.32 mmol/l [facility] HEMATOCRIT ABG 29(L) 38 - 51 % [facility] SPECIMEN TYPE Arterial [facility] Comment: Test Performed By [id number] Critical result performed at the point of care. Sample not collected by [facility] Hemoglobin calculated from Hematocrit result PCO2 POC 39 35 - [address] [facility] SODIUM 134(L) 138 - 146 mEq/L [facility] BASE EXCESS 27(H) -2 - 3 mmol/l [facility] PH 7.69(AA) 7.35 - 7.[address] [facility] O2 SATURATION 100(H) 95 - 98 % [facility] PO2 TEMP CORRECT 144(H) 80 - [address] [facility] FIO2 [address] [facility] HEMOGLOBIN POC 9.9 +/-3 g/dL 12.0 - 16.0 g/dL [facility] PCO2 TEMP CORRECT 41 35 - [address] [facility] POTASSIUM 3.3(L) 3.5 - 4.9 mEq/L [facility] PH TEMP CORRECT 7.67(AA) 7.35 - 7.[address] [facility] HCO3 (CALC) POC 47.0(H) 22.0 - 26.0 mmol/l [facility] TCO2 (CALC) POC 48(H) 23 - 27 mmol/l [facility] Arterial blood specimen (specimen) 04/13/2008 6:02 PM CDT 04/13/2008 6:19 PM CDT Riky Mejía MD POINT OF CARE TESTING COM F inal Result Performing Organization Address [facility] de Phone Number INTERFACE SYSTEM Refer to clinic/hospital department [facility] CLIA# [id number] [address] [place] [address] * LACTIC ACID (04/13/2008 5:36 PM CDT) [facility] LACTIC ACID 1.5 0.5 - 2.2 mEq/L [facility] Blood specimen (specimen) 04/13/2008 5:36 PM CDT 04/13/2008 5:36 PM CDT Riky Mejía MD CHEMISTRY ORDERABLES Final Result Performing Organization Address [facility] Phone Number INTERFACE SYSTEM Refer to clinic/hospital department [facility] CLIA# [id number] [facility] [place] [address] * TYPE AND CROSSMATCH (04/13/2008 5:34 PM CDT) [facility] BLOOD BANK PRODUCT INTERFACE SYSTEM Blood specimen (specimen) 04/13/2008 5:34 PM CDT 04/13/2008 5:34 PM CDT Riky Mejía MD BLOOD BANK ORDERABLES Final Result Performing Organization Address [facility] de Phone Number INTERFACE SYSTEM Refer to clinic/hospital department * ANTIBODY SCREEN (04/13/2008 5:34 PM CDT) Pathologist [facility] ANTIBODY SCREEN Negative [facility] Blood specimen (specimen) 04/13/2008 5:34 PM CDT 04/13/2008 5:34 PM CDT Riky Mejía MD BLOOD BANK ORDERABLES Edite d Performing Organization Address [facility] de Phone Number INTERFACE SYSTEM Refer to clinic/hospital department [facility] CLIA# [id number] [address] [place] [address] * ABORH TYPING (04/13/2008 5:34 PM CDT) Pathologist [facility] ABO/RH TYPE O Positive [facility] Blood specimen (specimen) 04/13/2008 5:34 PM CDT 04/13/2008 5:34 PM CDT us Riky Mejía MD BLOOD BANK ORDERABLES Final Result Performing Organization Address [facility] Phone Number INTERFACE SYSTEM Refer to clinic/hospital department [facility] CLIA# [id number] [address] [place] [id number] * (ABNORMAL) BASIC METABOLIC PANEL (04/13/2008 5:29 PM CDT) CREATININE 0.6(L) 0.7 - 1.2 mg/dL [facility] CALCIUM 8.4 8.4 - 10.5 mg/dL [facility] GLUCOSE 118(H) 70 - 110 mg/dL [facility] CHLORIDE 91(L) 95 - 110 mEq/L [facility] SODIUM 141 136 - 145 mEq/L [facility] ANION GAP <14 9 - 20 mEq/L [facility] BUN 16 7 - 17 mg/dL [facility] CO2 >40(H) 22 - 32 mmol/l [facility] OSMOLALITY, CALCULATED 291 275 - 295 mOsm/Kg [facility] POTASSIUM 3.7 3.5 - 5.0 mEq/L [facility] Blood specimen (specimen) 04/13/2008 5:29 PM CDT 04/13/2008 5:30 PM CDT Narrative INTERFACE SYSTEM - 04/13/2008 6:20 PM CDT OR 9 us Riky Mejía MD CHEMISTRY ORDERABLES Final Result INTERFACE SYSTEM Refer to clinic/hospital department [facility] CLIA# [id number] [address] [place] [address] * PT AND APTT (04/13/2008 5:29 PM CDT) INR 1.1 [facility] Comment: Expected Values for INR: [...] from the pharmacy Jolene Ramirez Pharm D. [phone] PTT 33.1 22.5 - 36.[address] [facility] Comment: Therapeutic Range: Hi-level PE/DVT heparin protocol 80.1 -95.0 sec Lo-level PE/DVT heparin protocol 67.1 - 80.0 sec Cardiac Heparin Protocol 67.1 - 85.0 sec Neuro Heparin Protocol 67.1 - 80.0 sec As of 09/25/2007 note change in APTT Normal Range. PROTIME 15.3 12.8 - 15.[address] [facility] Comment:As of 2007 not e change in normal range. Blood specimen (specimen) 04/13/2008 5:29 PM CDT 04/13/2008 5:30 PM CDT Narrative INTERFACE SYSTEM - 04/13/2008 5:48 PM CDT OR 9 us Riky Mejía MD HEMATOLOGY ORDERABLES Edite d INTERFACE SYSTEM Refer to clinic/hospital department [facility] CLIA# [id number] [facility] [place] [address] * (ABNORMAL) CBC WITH DIFFERENTIAL (04/13/2008 5:29 PM CDT) MCV 90.1 84.0 - 103.[address] [facility] BASOPHILS 0.3 0.0 - 1.0 % [facility] MPV 10.2 8.9 - 12.[address] [facility] BASOPHILS ABSOLUTE 0.0 0.0 - 0.2 K/ul [facility] HEMOGLOBIN 9.4(L) 12.0 - 16.0 g/dL [facility] MONOCYTES 4.3 2.0 - 10.0 % [facility] RDW 17.1(H) 11.0 - 14.5 % [facility] MONOCYTE ABSOLUTE 0.5 0.1 - 0.6 K/ul [facility] WBC 11.8(H) 4.5 - 11.0 K/ul [facility] NEUTROPHILS 81.9(H) 42.2 - 75.2 % [facility] MCH 29.0 27.0 - 34.[address] [facility] NEUTROPHIL ABSOLUTE 9.7(H) 2.0 - 8.0 K/ul [facility] HEMATOCRIT 29.2(L) 36.0 - 46.0 % [facility] PLATELETS 414 140 - 440 K/ul [facility] EOSINOPHIL ABSOLUTE 0.2 0.0 - 0.7 K/ul [facility] EOSINOPHILS 1.4 0.0 - 7.0 % [facility] RBC 3.24(L) 4.20 - 5.40 Mil/ul [facility] MCHC 32.2 30.0 - 35.0 g/dL [facility] LYMPHOCYTE ABSOLUTE 1.4 1.2 - 4.0 K/ul [facility] LYMPHOCYTES 12.1(L) 24.0 - 44.0 % [facility] Blood specimen (specimen) 04/13/2008 5:29 PM CDT 04/13/2008 5:29 PM CDT Narrative INTERFACE SYSTEM - 04/13/2008 5:35 PM CDT OR 9 us Riky Mejía MD HEMATOLOGY ORDERABLES Final Result INTERFACE SYSTEM Refer to clinic/hospital department [facility] CLIA# [id number] [address] [place] [address] * (ABNORMAL) POC ISTAT EG 7+ (04/13/2008 5:26 PM CDT) PH 7.68(AA) 7.35 - 7.[address] [facility] O2 SATURATION 100(H) 95 - 98 % [facility] PO2 TEMP CORRECT 174(H) 80 - [address] [facility] FIO2 [address] [facility] HEMOGLOBIN POC 9.5 +/-3 g/dL 12.0 - 16.0 g/dL [facility] PCO2 TEMP CORRECT 47(H) 35 - [address] [facility] POTASSIUM 3.5 3.5 - 4.9 mEq/L [facility] PH TEMP CORRECT 7.67(AA) 7.35 - 7.[address] [facility] HCO3 (CALC) POC 53.2(H) 22.0 - 26.0 mmol/l [facility] TCO2 (CALC) POC >50(H) 23 - 27 mmol/l [facility] TEMPERATURE 37.8 DegC [facility] PO2 170(H) 80 - [address] [facility] CALCIUM IONIZED 0.95(L) 1.12 - 1.32 mmol/l [facility] HEMATOCRIT ABG 28(L) 38 - 51 % [facility] SPECIMEN TYPE Arterial [facility] Comment: Test Performed By [id number] Critical result performed at the point of care. Sample not collected by [facility] Hemoglobin calculated from Hematocrit result PCO2 POC 45 35 - [address] [facility] SODIUM 135(L) 138 - 146 mEq/L [facility] BASE EXCESS >30(H) -2 - 3 mmol/l [facility] Arterial blood specimen (specimen) 04/13/2008 5:26 PM CDT 04/13/2008 5:34 PM CDT Riky Mejía MD POINT OF CARE TESTING COM F inal Result Performing Organization Address City/[facility] Co de Phone Number INTERFACE SYSTEM Refer to clinic/hospital department [facility] CLIA# [id number] [address] [place] [address] * MRSA CULTURE (04/13/2008 4:30 PM CDT) FINAL REPORT Culture screen for MRSA negative INTERFACE SYSTEM 04/13/2008 4:30 PM CDT 04/13/2008 6:57 PM CDT Riky Mejía MD MICROBIOLOGY - GENERAL ORDE RABLES Final Result Performing Organization Address [facility] de Phone Number INTERFACE SYSTEM Refer to clinic/hospital department documented in this encounter Visit Diagnoses Not on filedocumented in this encounter Additional Health Concerns Infection Onset Date Last Indicated Resolved Time MRSA Comment:Kapil 10/26/15 10/27/2015 10/27/2015 documented as of this encounter Care Teams Concentrator Operator Relationship Specialty Start Date End Date Jose Bowers MD [address] [place] [id number] PCP - General 12/31/05 documented as of this encounter
--- OUTSIDE RECORDS SUMMARY | 2025-04-29 15:17 | XMS_ITS | Encounter Summary ---
Author Organization [facility] Address [address] [place] [address] Care Team Providers Care Bookkeeper Assistant Name Role Phone Jose Bowers MD Primary Care Provider Unavailab le Encounter Details Date Type Department Care Team (Late st Contact Info) Description 07/04/2004 Outpatient Historical [facility] Calvin Odonnell MD [address] [place] [address] [phone] Social History Tobacco Use Types Packs/Day Years Used Date Smoking Tobacco: Never Assessed Comments Unknown Sex and Gender Information Value Date Recorded Sex Assigned at Not on file 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
--- OUTSIDE RECORDS SUMMARY | 2025-04-29 15:17 | XMS_ITS | Encounter Summary ---
Author Organization [facility] Address [address] [place] [address] Care Team Providers Care Handbook Writer Name Role Phone Jose Bowers MD Primary Care Provider Unavailab le Encounter Details Date Type Department Care Team (Latest Contact Info) Description 08/30/2006 Outpatient Historical [facility] [address] [place] [phone] Jose Bowers MD [address] [place] [phone] Pain in Joint, Pelvic Region and Thigh (Primary Dx) Social History Tobacco Use Types Packs/Day Years Used Date Smoking Tobacco: Never Assessed Comments Unknown Sex and Gender Information Value Date Recorded Sex Assigned at Not on file 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 Sex Female 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 HELPER Gender Identity Not on file Sexual Orientation Not on file documented as of this encounter Plan of Treatment Not on file documented as of this encounter Procedures Procedure Name Priority Date/Time Associated Diagnosis Comments CBC WITH DIFFERENTIAL Routine 08/30/2006 12:42 PM RAISER HELPER SEDIMENTATION RATE Routine 08/30/2006 12 :42 PM RAISER HELPER CK Routine 08/30/2006 12:42 PM RAISER HELPER documented in this encounter Results * (ABNORMAL) CK (08/30/2006 12:42 PM RAISER HELPER) CK 201(H) 26 - 140 U/L INTERFACE SYSTEM Comment: As of 05 the [facility] has changed testing methods. The new reference ranges are Males 38-174 Females 26-140 The old referance ranges were Males 0-155 Females 0-133 08/30/2006 12:4 2 PM RAISER HELPER Jose Bowers MD CHEMISTRY ORDERABLES Edited Performing Organization Address City/[facility] [address] [facility] Co de Phone Number INTERFACE SYSTEM Refer to clinic/hospital department * (ABNORMAL) CBC WITH DIFFERENTIAL (08/30/2006 12:42 PM RAISER HELPER) WBC 5.1 4.5 - 11.0 K/ul INTERFACE [...] K/ul INTERFACE SYSTEM 08/30/2006 12:4 2 PM RAISER HELPER Jose Bowers MD HEMATOLOGY ORDERABLES Edited Performing Organization Address City/[facility] [address] [facility] Co de Phone Number INTERFACE SYSTEM Refer to clinic/hospital department * (ABNORMAL) SEDIMENTATION RATE (08/30/2006 12:42 PM RAISER HELPER) ESR (SEDIMENTATION RATE) 27(H) 0 - 22 mm/hr INTERFACE SYSTEM 08/30/2006 12:4 2 PM RAISER HELPER Jose Bowers MD HEMATOLOGY ORDERABLES Edited INTERFACE SYSTEM Refer to clinic/hospital department documented in this encounter Visit Diagnoses Diagnosis Pain in joint, pelvic region and thigh- Primary documented in this encounter Additional Health Concerns Infection Onset Date Last Indicated Resolved Time MRSA Comment:Kapil 10/26/15 10/27/2015 10/27/2015 documented as of this encounter Care Teams Handbook Writer Relationship Specialty Start Date End Date Jose Bowers MD [address] [place] [id number] PCP - General 12/31/05 documented as of this encounter
--- OUTSIDE RECORDS SUMMARY | 2025-04-29 15:17 | XMS_ITS | Encounter Summary ---
Author Organization [facility] Address [address] [place] [address] Care Team Providers Care Editor Trade Journal Name Role Phone Jose Bowers MD Primary Care Provider Unavailab le Encounter Details Date Type Department Care Team (Late st Contact Info) Description 04/15/[address] 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
--- OUTSIDE RECORDS SUMMARY | 2025-04-29 15:17 | XMS_ITS | Encounter Summary ---
Author Organization [facility] Address [address] [place] [address] Care Team Providers Care Crew Manager Name Role Phone Jose Bowers MD Primary Care Provider Unavailab le Encounter Details Date Type Department Care Team (Late st Contact Info) Description 10/02/2006 Outpatient Historical [facility]- [place] [address] [place] [phone] Jose Bowers MD [address] [place] [address] Paraplegia (CMS/HCC) (Primary Dx) Social History Tobacco Use Types Packs/Day Years Used Date Smoking Tobacco: Never Assessed Comments Unknown Sex and Gender Information Value Date Recorded Sex Assigned at Not on file 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
--- OUTSIDE RECORDS SUMMARY | 2025-04-29 15:17 | XMS_ITS | Encounter Summary ---
Author Organization [facility] Address [address] [place] [address] Care Team Providers Care Psychologist Research Assistant Name Role Phone Jose Bowers MD Primary Care Provider Unavailab le Encounter Details Date Type Department Care Team (Latest Contact Info) Description 07/24/2006 Outpatient Historical [facility] [address] [place] [phone] Delmar Snow MD [address] [phone] Paraplegia (CMS/HCC) (Primary Dx) Social History Tobacco Use Types Packs/Day Years Used Date Smoking Tobacco: Never Assessed Comments Unknown Sex and Gender Information Value Date Recorded Sex Assigned at Not on file Legal Sex Female 6:28 AM SOLID WASTE COLLECTOR Gender Identity Not on file Sexual Orientation Not on file documented as of this encounter Plan of Treatment Not on file documented as of this encounter Visit Diagnoses Diagnosis Paraplegia- Primary documented in this encounter Additional Health Concerns Infection Onset Date Last Indicated Resolved Time MRSA Comment:Kapil 10/26/15 10/27/2015 10/27/2015 documented as of this encounter Care Teams Psychologist Research Assistant Relationship Specialty Start Date End Date Jose Bowers MD [address] [place] [address] PCP - General 12/31/05 documented as of this encounter
--- OUTSIDE RECORDS SUMMARY | 2025-04-29 15:17 | XMS_ITS | Encounter Summary ---
Author Organization [facility] Address [address] [place] [address] Care Team Providers Care Aquatic Instructor Name Role Phone Jose Bowers MD Primary Care Provider Unavailab le Encounter Details Date Type Department Care Team (Late st Contact Info) Description 10/01/2005 Outpatient Historical [facility] [place] [address] [place] [phone] Jose Bowers MD [address] [place] [address] Paraplegia (CMS/HCC) (Primary Dx); Neurogenic Bladder, NOS Social History Tobacco Use Types Packs/Day Years Used Date Smoking Tobacco: Never Assessed Comments Unknown Sex and Gender Information Value Date Recorded Sex Assigned at Not on file Legal Sex Female 6:28 AM GOLD PROSPECTOR Gender Identity Not on file Sexual Orientation Not on file documented as of this encounter Plan of Treatment Not on file documented as of this encounter Visit Diagnoses Diagnosis Paraplegia- Primary Neurogenic bladder, NOS documented in this encounter Additional Health Concerns Infection Onset Date Last Indicated Resolved Time MRSA Comment:Kapil 10/26/15 10/27/2015 10/27/2015 documented as of this encounter Care Teams Aquatic Instructor Relationship Specialty Start Date End Date Jose Bowers MD [address] [place] [address] PCP - General 12/31/05 documented as of this encounter
--- OUTSIDE RECORDS SUMMARY | 2025-04-29 15:17 | XMS_ITS | Data Portability ---
Author Organization [facility] Victor Manuel Murrell [facility] Address [address] [facility] [address] [place] [address] Care Team Providers Care Electronic Warfare Operator Name Role Phone CHARY BENSON Primary Care Provider [phone] Assessment Encounter Date Assessment Date Assessment LastModified by Organization Details LastModified Time 11/11/2024 11/11/2024 Will need follow-up in [place] given her complex health issues. We will help arrange transportation and utilize her care coordinators to do this. Patient would likely benefit from a temporary stay from skilled facility but the patient has stated that this is not an option for her. Continue TPN as outlined by specialist in [place]. Daughter states that she is not having any difficulty managing this part of the patient's care. [email or web address] Not available 11/12/2024 18:14:43 04/09/2025 04/09/2025 55-year-old female with a history of deep vein thrombosis presenting with complications post-acute renal failure managed at [facility]. Current issues include constipation, hydronephrosis, and concerns regarding osteomyelitis with ostomy supply management challenges. [email or web address] Not available 04/09/2025 12:30:42 Plan of Treatment Reminders Order Date Submit Date Provider Last Modified By Organization Details Last Modified Time Details Appointments None recorded. Lab CBC w/ auto diff 2024 025 [email or web address] 23 [facility], [address], [facility] [address], [place], [address], 11:55:50 Referral infectious disease specialist referral 2024 025 [email or web address] 2 Deb Louis MD, [address] [place], [address], 11:27:34 physical therapist referral 2024 025 [email or web address] 8 [facility], [address] [place], [address], 11:04:27 wound care referral 2024 025 [email or web address] [facility], [address] [place], [address], 12:40:56 Procedures None recorded. Surgeries None recorded. Imaging None recorded. Medication Orders Eliquis 5 mg tablet 2024 [facility], [address], [place], [address], 14:16:01 Vashe 0.033 % irrigation solution 2024 [facility], [address], [place], [address], 14:40:30 Patient TargetsNo targets recorded. Patient Instructions Encounter Date Encounter Id Patient Instructions Last Modified By Organization Details Last Modified Time 04/09/2025 [id number] - Drink plenty o f water daily to stay hydrated. - Use stool softeners as needed to maintain regularity. - Continue taking Eliquis as prescribed, watch for any signs of bleeding. - Monitor ostomy and change supplies more frequently if needed. - Follow up with Dr. Louis for infectious disease evaluation. - Call us if you experience any new or worsening symptoms. - Keep record of all medications and take them as directed. [email or web address] Not available 04/09/2025 11:52:53 I discussed the patient's recent hospitalization for acute renal failure and hydronephrosis, including catheter management. We explored the role of dehydration and constipation in exacerbating her symptoms. I reassured that TPN's impact on kidneys is less significant than on the liver and recommended Eliquis dosing remains appropriate for deep vein thrombosis. We reviewed challenges with ostomy supplies and enabled a prescription for more frequent changes. Referral to Dr. Louis was planned for osteomyelitis concerns. It was emphasized to maintain hydration and bowel regularity to mitigate further renal strain. I suggested consideration of palliative care involvement for home-based ostomy management support. [email or web address] Not available 04/09/2025 11:52:54 Reason for Referral Referring Physician: Chary Benson [facility], Encounter Date: 11/11/2024 Physical Therapist Referral for Paraplegia Referring Physician: Chary Benson [facility], Encounter Date: 11/11/2024 Infectious Disease Specialis t Referral for History of osteomyelitis Referring Physician: Chary Benson [facility], Encounter Date: 04/09/2025 Results Created Date Observation Date Name Description Value Unit Range Abnormal Flag Note LastModifiedBy Organization Detail LastModifiedTime 03/02/2003/02/2025 CBC WBC 7.9 x10 4.0-10 .5 Not Available [facility] [address], [place], [address], 03/02/2025 15:34:25 03/02/2003/02/2025 CBC RBC 3.48 x10 3.50-5 .50 low Not Available [facility] [address], [place], [address], 03/02/2025 15:34:25 03/02/2003/02/2025 CBC HGB 11.1 g/dL 12.0-1 6.0 low Not Available [facility] [address], [place], [address], 03/02/2025 15:34:25 03/02/2003/02/2025 CBC HCT 33.8 % 37.0-4 7.0 low Not Available [facility] [address], [place], [address], 03/02/2025 15:34:25 03/02/20 25 03/02/2025 CBC MCV 97.2 fL 80.0-9 9.9 Not Available [facility] [address] [facility] 1, [place], [address], 03/02/2025 15:34:25 03/02/20 25 03/02/2025 CBC MCH 32.0 pg 27.0-3 2.0 Not Available [facility] [address] [facility] [facility] [address], [place], [address], 03/02/2025 15:34:25 03/02/20 25 03/02/2025 CBC MCHC 32.9 g/dL 32.0-3 6.0 Not Available [facility] [address] [facility] [facility], [place], [address], 03/02/2025 15:34:25 03/02/20 25 03/02/2025 CBC RDW 14.4 % 11.5-1 4.5 Not Available [facility] [address] [facility] [address], [place], [address], 03/02/2025 15:34:25 03/02/20 25 03/02/2025 CBC plt 301.8 x10 140.0- 451.0 Not Available [facility] [address] [facility] [address], [place], [address], 03/02/2025 15:34:25 03/02/20 25 03/02/2025 CBC lymphocytes % 8.1 % 20.0-5 0.0 low Not Available [facility] [address] [facility] [address], [place], [address], 03/02/2025 15:34:25 03/02/20 25 03/02/2025 CBC granulcytes % 78.6 % 30.0-7 0.0 high Not Available [facility] [address] [facility] [address], [place], [address], 03/02/2025 15:34:25 03/02/20 25 03/02/2025 CBC monocytes % 12.8 % 2.0-16 .0 Not Available [facility] [address] [facility] [address], [place], [address], 03/02/2025 15:34:25 03/02/20 25 03/02/2025 CBC granulcytes# 6.2 x10 Not Orquidea ilable [facility] [address] [facility] [address], [place], [address], 03/02/2025 15:34:25 03/02/20 25 03/02/2025 CBC lymphocytes # 0.6 x10 Not Available [facility] [address] [facility] [address], [place], [address], 03/02/2025 15:34:25 03/02/20 25 03/02/2025 CBC monocytes # 1.0 x10 Not Avai lable [facility] [address] [facility] [address], [place], [address], 03/02/2025 15:34:25 Result Notes None recorded. Problems Name Problem SNOMED Code Status Onset Date Resolution Date Notes Provider Name and Address Organization Details Recorded Time Chest pain 76797590 Active 2024 Raquel thibodeaux [facility] 12:14:01 Spinal cord injury 05390883 Active 2024 Raquel thibodeaux [facility], [facility]te 12:15:09 Liver enzymes level above reference range 122461732 Active 2024 Raquel thibodeaux [facility], [facility]CL[facility] 12:14:28 Pressure injury of buttock 444566988 Active 2024 Raquel thibodeaux [facility] 12:14:59 Spasm 42061428 Active 2024 Raquel tihbodeaux, [facility] 12:15:29 Major depressive disorder 791643941 Active 2024 Raquel thibodeaux, [facility] 12:14:49 Paraplegia 07632495 Active 2024 Raquel thibodeaux, [facility] 12:14:42 Chronic urinary tract infection 433965600 Active 2024 [facility] 12:14:13 Open wound 011150908 Active 2024 [facility] 20:01:46 History of deep vein thrombosis 922430146 Active 2024 [facility] 20:12:38 Nausea 139177740 Active 2024 [facility] 20:14:53 Gastric reflux 283051433 Active 2024 [facility] 20:17:14 Chronic pain syndrome 896310691 Active 2024 [facility] 20:19:08 Colostomy present 090703894 Active 2024 Chary Benson MD [address] [place] [address], [phone], [facility] 12:52:43 Gastrointestin al hemorrhage 07637280 Active 2024 Chary Benson MD [address] [place] [address], [phone], [facility] 14:21:55 Altered mental status 823423192 Active 2024 Chary Benson MD [address] [place] [address], [phone], [facility] 11:28:17 Visual hallucinations 81758495 Active 2024 Chary Benson MD [address] [place] [address], [address] [place] [address] 5, [facility] 11:28:35 Acute urinary tract infection 187485639 Active 2024 Chary Benson MD [address] [place] [address], [address] [place] [address] 5, [facility] 13:29:28 Acute kidney injury 12263055 Active 2024 Chary Benson MD [address] [place] [address], [address] [place] [address] 5, [facility] 12:29:09 Bilateral hydronephrosis 28704856 Active 2024 Chary Benson MD [address] [place] [address], [address] [place] [address] 5, [facility] 12:29:20 Chronic constipation 327158472 Active 2024 Chary Benson MD [address] [place] [address], [address] [place] [address] 5, [facility] 12:29:29 Problem Notes None recorded. Medical Equipment None Reported. Allergies Allergen ID Allergen Name Allergen Category Reaction Reaction Severity Criticality Documentation Date Start Date Code Code System Note Provider Name and Address Organization Details Recorded Time 30723 adhesive tape environme nt,medica tion Not available Not available Not available 08/03/2024 [facility] 5 12:01:54 50233 Ultram medicatio n Not available Not available Not available 08/03/2024 57843 6 [facility] 5 12:02:02 64758 Zithromax medicatio n Not available Not available Not available 08/03/2024 27573 4 [facility]CL[facility] 5 12:02:09 57726 azithromy travis medicatio n Not available Not available Not available 08/03/2024 14994 RxNorm [facility]CL[facility] 5 12:02:19 32212 Product containin g penicilli n (product) medicatio n Not available Not available Not available 08/03/2024 82676 8001 SNOMED [facility] L[facility]CL[facility] 5 12:02:26 68958 vancomyci n medicatio n Not available Not available Not available 08/03/2024 32957 RxNorm [facility]CL[facility] 5 12:02:32 Medications Name Sig Start Date Stop Date Status Note LastModified by Organization Details LastModified Time gabapentin 600 mg tablet TAKE 1 TABLET BY MOUTH ONCE DAILY AT BEDTIME active Not Available Not Available No t Available clindamycin HCl 300 mg capsule TAKE 1 CAPSULE BY MOUTH TWICE DAILY 08/03 completed Not Available Not Available Not Available loperamide 2 mg capsule TAKE 2 CAPSULES BY MOUTH 4 TIMES DAILY 04/09 completed Not Available Not Available Not Available trazodone 50 mg tablet TAKE 1/2 [...] Available diphenoxyla te-atropine 2.5 mg-0.025 mg tablet TAKE 2 TABLETS BY MOUTH EVERY 6 HOURS active Not Available Not Available No t Available potassium chloride ER 10 mEq tablet,exte nded release TAKE 2 TO 3 TABLETS BY MOUTH AT BEDTIME 11/11 completed Not Available Not Available Not Available ciprofloxac in 250 mg tablet TAKE 1 TABLET BY MOUTH ONCE DAILY START AFTER THE COMPLETIO N OF CIPRO 500 MG TWICE FOR 7 DAYS active Not Available Not Available No t Available ciprofloxac in 500 mg tablet TAKE 1 TABLET BY MOUTH TWICE DAILY FOR 7 DAYS (THIS IS TO REPLACE THE CEFDINIR) 04/09 completed Not Available Not Available Not Available [...] TAKE 1 CAPSULE BY MOUTH ONCE DAILY 04/09 completed Not Available Not Available Not Available metoclopram donn 10 mg tablet TAKE [...] twice a day by irrigatio n route. 2024 active Not Available Not Available Not Avai lable Vitals Date Recorded Body temperature Oxygen saturation Oxygen saturation in Arterial blood by Pulse oximetry Heart rate Systolic And Diastolic Provider Name and Address Organization Details Last Updated DateTime 5 97.2 [degF] 97 % 97 % 61 /min 130/84 mm[Hg] DURGA GONZALEZ [facility] 5 12:16:04 Date Recorded Body height Body mass index (BMI) Body weight Oxygen saturation Oxygen saturation in Arterial blood by Pulse oximetry Heart rate Respiratory rate Body temperature Systolic And Diastolic Provider Name and Address Organization Details Last Updated DateTime 5 160.02 cm 44.8 kg/m2 796420. 87 g 96 % 96 % 82 /min 20 /min 97.2 [degF] 112/70 mm[Hg] Raquel Rosario [facility] L[facility]CL[facility] 5 14:11:50 Date Recorded Body height Body mass index (BMI) Body weight Oxygen saturation Oxygen saturation in Arterial blood by Pulse oximetry Heart rate Respiratory rate Body temperature Systolic And Diastolic Provider Name and Address Organization Details Last Updated DateTime 5 160.02 cm 42.2 kg/m2 114903. 98 g 98 % 98 % 107 /min 18 /min 97.6 [degF] 128/70 mm[Hg] Raquel [facility] 5 13:58:32 Date Recorded Body height Body mass index (BMI) Body weight Body temperature Oxygen saturation Oxygen saturation in Arterial blood by Pulse oximetry Heart rate Systolic And Diastolic Provider Name and Address Organization Details Last Updated DateTime 5 160.02 cm 42.2 kg/m2 729358. 98 g 98.4 [degF] 99 % 99 % 91 /min 108/68 mm[Hg] Katie Sumner [facility] 5 11:12:43 Date Recorded Body height Body mass index (BMI) Body weight Body temperature Heart rate Oxygen saturation Oxygen saturation in Arterial blood by Pulse oximetry Respiratory rate Systolic And Diastolic Provider Name and Address Organization Details Last Updated DateTime 5 160.02 cm 43.6 kg/m2 720519. 72 g 97.2 [degF] 78 /min 78 % 78 % 20 /min 100/66 mm[Hg] Raquel Rosario [facility] 5 11:24:33 Social History Question Answer Notes LastModified by Sensitive Object Details LastModified Time Tobacco Smoking Status Never Smoker [facility] 08/03/2024 12:10:29 What Is Your Level Of Caffeine Consumption? Moderate Information not available 08/03/2024 What Type Of Diet Are You Following? REGULAR Information not available 08/03/2024 What Was The Date Of Your Most Recent Tobacco Screening? 03/11/2025 [email or web address] Information not available 03/11/2025 Do You Have Difficulty Walking Or Climbing Stairs? Yes Information not available 08/03/2024 Do You Have Any Dietary Restrictions? No Information not available 08/03/2024 Sex: Unknown Functional Status Question Answer Note LastModified by Sensitive Object Details LastModified Time Do you use any [...] virus, trivalent, preservative 3 completed Not Available [facility] 04/09/2025 11:20:02 Influenza, split virus, trivalent, preservative 4 completed Not Available [facility] 04/09/2025 11:20:02 Influenza, split virus, trivalent, PF 5 completed Not Available [facility] 04/09/2025 11:20:02 Past Encounters Encounter ID Performer Location Encounter Start Date Encounter Closed Date Diagnosis/Indication Diagnosis SNOMED-CT Code Diagnosis ICD10 Code Diagnosis IMO Codes Diagnosis Note [id number] Chary Benson MD [facility] ([facility] [address] [place] [phone] 08/03/2024 11:40:14 08/03/2024 12:29:41 Chest pain 68140263 R07.9 Continue with stress test as ordered. History of deep vein thrombosis 759345257 Z86.718 Patient is on warfarin and and does her own INR at home. Liver enzy mes level above reference range 740273272 R74.01 We will await ultrasound results. Spinal cord injury 43927 004 S24.112S Pressure i njury of buttock 907812846 L89.309 Continue with wound care Spasm 96705586 R25.2 Continue current medication s. Major depr essive disorder 899658380 F32.9 Continue venlafaxin e Paraplegia 77899302 G82. 20 Chronic ur inary tract infection 430579610 N39.0 Continue cefdinir and urology follow-up [id number] Chary Benson MD [facility] ([facility]) [address] [place] [phone] 11/11/2024 14:04:08 11/11/2024 16:15:28 History of surgery 788795528 Z93.9 [id number] Open wound 802895061 T14 .8XXA 22425 Irrigation sWill send referral to wound care. Will send prescripti on for lotion to help with leg continue to manage the wound. Paraplegia 77138989 G82. 20 Send referral for physical therapy. [id number] Chary Benson MD [facility] ([facility]) [address] [place] [phone] 03/02/2025 13:15:58 03/02/2025 14:35:18 History of deep vein thrombosis 715211239 Z86.404 [id number] The patient does need to be on some sort of blood thinner given her history of blood clots and PE. We will try Eliquis as it does have data to support less GI bleeding. We will start this medication assuming her blood counts come back better. Gastrointe stinal hemorrhage 51060990 K92.2 065091811 Her last hemoglobin was 9.7. Will recheck blood counts today. Patient denies any more bleeding in her stools. [id number] Chary Benson MD [facility] ([facility]) [address] [place] [phone] 03/11/2025 11:00:57 03/11/2025 11:45:12 Altered mental status 048467974 R41.82 4318416654 This appears to be improving after treatment for UTI Visual hallucinations 64 297467 R44.1 46427 These have resolved. Urinary ca theter in situ 835699549 Z97.8 4107006 Continue antibiotic s and follow-up with urology. Acute urin jaime tract infection 215743060 N39.0 134589 Continue cefdinir and urology follow-up [id number] Chary Benson MD [facility] ([facility]) [address] [place] [phone] 04/09/2025 11:19:08 04/09/2025 12:39:32 Colostomy present 445852350 Z43.3 [id number] Ostomy Management : - Prescripti on adjustment s for supply frequency. - Assessment for home health or palliative support. Acute kidney injury 1466 9001 N17.9 561531 Acute Renal Failure: - Hydration support and renal monitoring . - Continued catheter use management . Bilateral hydronephrosis 13622740 N13.30 303349 Hydronephr osis: - Monitor with catheter management . - Evaluate recurrent need for urological consult. Chronic constipation 236 987217 K59.09 204819 Constipati on: - Use stool softeners as directed. - Education on usage and regularity . History of deep vein thrombosis 026112112 Z86.164 6306360 Deep Vein Thrombosis : - Maintain Eliquis regimen. - Vigilance for bleeding risks. History of osteomyelitis 270028060 Z87.39 435646 Osteomyeli tis: - Referral to infectious disease specialist . She was previously seeing Dr. Missy weiss monitoring . Health Concerns Section Related Observation LastModified by Organization Detai ls LastModified Time None Recorded Concern Status LastModified by Organization Details LastModified Time None Recorded Advance Directives Directive None Recorded Payers Insurance Date Sequence Insurance Name Policy Number Policy Rodriguez Covered Member ID Rodriguez Member ID Guarantor Name 08/14/2024 1 [facility] ([place] Jami Gandhi [id number] Jami Gandhi 04/08/2025 1 [facility] ([place] VANTAGE - HMO) [employer] Jami Gandhi [id number] Jami Gandhi 04/07/2025 2 [place] Jami Gandhi [id number] Jami Gandhi 04/07/2025 [place] [facility] Jami Gandhi [id number] Jami Gandhi Notes Date Note Type Note [...] for wound on bottom. Chary Benson MD [address] [place] [address], [phone], [facility] 08/05/2024 17:13:17 11/11/2024 text/html This is a [...] locally would take her. The patient declined long term ability. Patient has follow-ups in [place] but is currently having transportation issues. She is able to make her local appointments. Chary Benson MD [address] [place] [address], [phone], [facility] 11/12/2024 18:15:08 03/02/2025 text/html ROS as noted in the HPI patient here for a hospital f/u from [facility] for 4 days for blood in her stool. they put her xeralto on hold and she is currently not on any blood thinner. The patient is concerned about her blood levels because she has noticed that her fingernails are no longer pink. Her caregiver also has paperwork that needs to be filled out for her recent hospitalization. Chary Benson MD [address] [place] [address], [phone], [facility] 03/08/2025 08:16:25 03/11/2025 text/html Pt here today for hospital follow upThe patient had episode of vision difficulty and word finding. The patient was also hallucinating.Patient reports that this is not normal for her. The patient did go to the ER and was diagnosed with UTI and started on antibiotics. The patient actually is doing better today.She states she has tremors now and would like to know why. They are intermittent and does not appear to be caused by any specific trigger. Chary Benson MD [address] [place] [address], [phone], [facility], LDamaris. 03/13/2025 13:29:52 04/09/2025 text/html The patient is a 55-year-old female presenting with kidney problems. Recently discharged from a three to four-day hospitalization at [facility] for acute renal failure and hydronephrosis, she reported severe abdominal pain relieved by stool softeners. On anticoagulation therapy with Eliquis for deep vein thrombosis, she inquired about TPN effects, confirmed to usually impact the liver, not kidneys. Concerns also included osteomyelitis and challenges with ostomy supplies leakage necessitating increased changes. Follow-up with an infectious disease specialist was requested. - Labs: Elevated creatinine at 1.7 mg/dL and elevated blood urea nitrogen (BUN) at 102 mg/dL indicating pre-renal azotemia. - Tests and Diagnostics: Evidence of hydronephrosis from imaging. Ventral hernia also noted on imaging. Chary Besnon MD [address] [place], [address], [facility], LD[facility]aris. 04/09/2025 12:31:45 OBGyn Episode No OBEpisode recorded.
--- OUTSIDE RECORDS SUMMARY | 2025-04-29 15:17 | XMS_ITS | Encounter Summary ---
Author Organization [facility] Address [address] [place] [address] Care Team Providers Care Equipment Operator Name Role Phone Jose Bowers MD Primary Care Provider Unavail le Encounter Details Date Type Department Care Team (Late st Contact Info) Description 12/31/2005 Outpatient Historical [facility] Jose Bowers MD [address] [place] [address] Paraplegia (CMS/HCC) (Primary Dx) Social History Tobacco Use Types Packs/Day Years Used Date Smoking Tobacco: Never Assessed Comments Unknown Sex and Gender Information Value Date Recorded Sex Assigned at Not on file Legal Sex Female 6:28 AM VAT SKIMMER Gender Identity Not on file Sexual Orientation [...] INTERFACE SYSTEM Comment: As of 05 the [facility] has changed testing methods. The new reference ranges are Males 38-174 Females 26-140 The old referance ranges were Males 0-155 Females 0-133 12/31/2005 12:4 8 PM CDT Jose Bowers MD CHEMISTRY ORDERABLES Final Resul t Performing Organization Address [facility] Phone Number INTERFACE SYSTEM Refer to clinic/hospital department * C-REACTIVE PROTEIN (12/31/2005 12:48 PM CDT) CRP 0.85 0.00 - 1.00 mg/dL INTERFACE SYSTEM 12/31/2005 12:4 8 PM CDT Jose Bowers MD CHEMISTRY ORDERABLES Final Resul t Performing Organization Address [facility] Phone Number INTERFACE SYSTEM Refer to clinic/hospital department * SEDIMENTATION RATE (12/31/2005 12:48 PM CDT) ESR (SEDIMENTATION RATE) 18 0 - 22 mm/hr INTERFACE SYSTEM 12/31/2005 12:4 8 PM CDT Jose Bowers MD HEMATOLOGY ORDERABLES Final Resu lt Performing Organization Address [facility] Phone Number INTERFACE SYSTEM [...] documented as of this encounter Care Teams Equipment Operator Relationship Specialty Start Date End Date Jose Bowers MD [address] [place] [id number] PCP - General 12/31/05 documented as of this encounter
--- OUTSIDE RECORDS SUMMARY | 2025-04-29 15:17 | XMS_ITS | Encounter Summary ---
Author Organization [facility] Address [address] [place] [address] Care Team Providers Care Pathology Technician Name Role Phone Jose Bowers MD Primary Care Provider Unavailab le Encounter Details Date Type Department Care Team (Late st Contact Info) Description 07/24/2006 Outpatient Historical [facility] [place] [address] [place] [id number] Jose Bowers MD [address] [place] [address] Paraplegia (CMS/HCC) (Primary Dx); Difficulty in Walking; Pain in Limb Social History Tobacco Use Types Packs/Day Years Used Date Smoking Tobacco: Never Assessed Comments Unknown Sex and Gender Information Value Date Recorded Sex Assigned at Not on file Legal Sex Female 6:28 AM CHIEF OF PEDIATRIC UROLOGY Gender Identity Not on file Sexual Orientation [...] documented as of this encounter Care Teams Pathology Technician Relationship Specialty Start Date End Date Jose Bowers MD [address] [place] [address] PCP - General 12/31/05 documented as of this encounter
--- OUTSIDE RECORDS SUMMARY | 2025-04-29 15:17 | XMS_ITS | Encounter Summary ---
Author Organization [facility] Address [address] [place] [address] Care Team Providers Care Principal Statistical Programmer Name Role Phone Jose Bowers MD Primary Care Provider Unavailab le Encounter Details Date Type Department Care Team (Latest Contact Info) Description 02/05/2005 Outpatient Historical [facility] [address] [place] [address] [place] [id number] Morenita Muñiz MD [address] [place] [address] ADMINISTRTVE ENCOUNT NOS (Primary Dx) Social History Tobacco Use Types Packs/Day Years Used Date Smoking Tobacco: Never Assessed Comments Unknown Sex and Gender Information Value Date Recorded Sex Assigned at Not on file 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 Gender Identity Not on file Sexual Orientation Not on file documented as of this encounter Plan of Treatment Not on file documented as of this encounter Visit Diagnoses Diagnosis Encounters for unspecified administrative purpose- Primary documented in this encounter Additional Health Concerns Infection Onset Date Last Indicated Resolved Time MRSA Comment:Kapil 10/26/15 10/27/2015 10/27/2015 documented as of this encounter Care Teams Principal Statistical Programmer Relationship Specialty Start Date End Date Jose Bowers MD [address] [place] [address] PCP - General 12/31/05 documented as of this encounter
--- OUTSIDE RECORDS SUMMARY | 2025-04-29 15:17 | XMS_ITS | Encounter Summary ---
Author Organization [facility] Address [address] [place] [address] Care Team Providers Care Motorcycle Technician Name Role Phone Jose Bowers MD Primary Care Provider Levon lowry Encounter Details Date Type Department Care Team (Latest Contact Info) Description 04/28/2008 Outpatient Historical [facility] [address] [place] [address] AMBULANCE, [facility] Paraplegia ([facility]); Pressure Ulcer, Upper Back; Pressure Ulcer, Unspecified Stage; Wheelchair Dependence; Bed Confinement Status; Encounter for Long-Term (Current) Use of Other Medications; Encounter for Long-Term (Current) Use of Insulin ([facility]); Personal History of Allergy to Penicillin; Personal History of Allergy to Narcotic Agent Social History Tobacco Use Types Packs/Day Years Used Date Smoking Tobacco: Never Assessed Comments Unknown Sex and Gender Information Value Date Recorded Sex Assigned at Not on file 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 Gender Identity Not on file Sexual Orientation [...] Encounter for long-term (current) use of insulin ([facility]) Encounter for long-term (current) use of insulin Personal history of allergy to penicillin Personal history of allergy to narcotic agent documented in this encounter Additional Health Concerns Infection Onset Date Last Indicated Resolved Time MRSA Comment:Kapil 10/26/15 10/27/2015 10/27/2015 documented as of this encounter Care Teams Motorcycle Technician Relationship Specialty Start Date End Date Jose Bowers MD [address] [place] [id number] PCP - General 12/31/05 documented as of this encounter
--- OUTSIDE RECORDS SUMMARY | 2025-04-29 15:17 | XMS_ITS | Encounter Summary ---
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 Gender Identity Not on file Sexual Orientation Not on file documented as of this encounter Plan of Treatment Not on file documented as of this encounter Procedures Procedure Name Priority Date/Time Associated Diagnosis Comments POC GLUCOSE Routine 05/12/2008 7:37 AM ASSEMBLER TYPE BAR AND SEGMENT POC GLUCOSE Routine 05/11/2008 9:43 PM ASSEMBLER TYPE BAR AND SEGMENT POC GLUCOSE Routine 05/11/2008 5:35 PM ASSEMBLER TYPE BAR AND SEGMENT POC GLUCOSE Routine 05/11/2008 11:40 AM ASSEMBLER TYPE BAR AND SEGMENT POC GLUCOSE Routine 05/11/2008 7:38 AM ASSEMBLER TYPE BAR AND SEGMENT POC GLUCOSE Routine 05/10/2008 9:54 PM ASSEMBLER TYPE BAR AND SEGMENT POC GLUCOSE Routine 05/10/2008 5:34 PM ASSEMBLER TYPE BAR AND SEGMENT POC GLUCOSE Routine 05/10/2008 12:08 PM ASSEMBLER TYPE BAR AND SEGMENT POC GLUCOSE Routine 05/10/2008 8:31 AM ASSEMBLER TYPE BAR AND SEGMENT CBC WITH DIFFERENTIAL Routine 05/10/2008 5:47 AM ASSEMBLER TYPE BAR AND SEGMENT COMPREHENSIVE METABOLIC PANEL Routine 05/10/2008 5:47 AM ASSEMBLER TYPE BAR AND SEGMENT POC GLUCOSE Routine 05/09/2008 9:17 PM ASSEMBLER TYPE BAR AND SEGMENT POC GLUCOSE Routine 05/09/2008 6:31 PM ASSEMBLER TYPE BAR AND SEGMENT POC GLUCOSE Routine 05/09/2008 12:20 PM ASSEMBLER TYPE BAR AND SEGMENT POC GLUCOSE Routine 05/09/2008 8:50 AM ASSEMBLER TYPE BAR AND SEGMENT POC GLUCOSE Routine 05/08/2008 8:06 PM CDT [...] * (ABNORMAL) POC GLUCOSE (05/12/2008 7:37 AM ASSEMBLER TYPE BAR AND SEGMENT) GLUCOSE POC 124(H) 60 - 100 mg/dL [facility] Venous blood specimen (specimen) 05/12/2008 7:37 AM ASSEMBLER TYPE BAR AND SEGMENT 05/13/2008 3:52 AM ASSEMBLER TYPE BAR AND SEGMENT us Riky Mejía MD POINT OF CARE TESTING Final Result Performing Organization Address [facility] Phone Number INTERFACE SYSTEM Refer to clinic/hospital department [facility] CLIA# [id number] [address] [place] [address] * (ABNORMAL) POC GLUCOSE (05/11/2008 9:43 PM ASSEMBLER TYPE BAR AND SEGMENT) GLUCOSE POC 123(H) 60 - 100 mg/dL [facility] Venous blood specimen (specimen) 05/11/2008 9:43 PM ASSEMBLER TYPE BAR AND SEGMENT 05/12/2008 3:33 AM ASSEMBLER TYPE BAR AND SEGMENT us Riky Mejía MD POINT OF CARE TESTING Final Result Performing Organization Address [facility] de Phone Number INTERFACE SYSTEM Refer to clinic/hospital department [facility] CLIA# [id number] [address] [place] [address] * (ABNORMAL) POC GLUCOSE (05/11/2008 5:35 PM ASSEMBLER TYPE BAR AND SEGMENT) GLUCOSE POC 117(H) 60 - 100 mg/dL [facility] Venous blood specimen (specimen) 05/11/2008 5:35 PM ASSEMBLER TYPE BAR AND SEGMENT 05/12/2008 3:33 AM ASSEMBLER TYPE BAR AND SEGMENT Riky Mejía MD POINT OF CARE TESTING Final Result Performing Organization Address [facility] de Phone Number INTERFACE SYSTEM Refer to clinic/hospital department [facility] CLIA# [id number] [address] [place] [address] * (ABNORMAL) POC GLUCOSE (05/11/2008 11:40 AM ASSEMBLER TYPE BAR AND SEGMENT) GLUCOSE POC 132(H) 60 - 100 mg/dL [facility] Venous blood specimen (specimen) 05/11/2008 11:40 AM ASSEMBLER TYPE BAR AND SEGMENT 05/12/2008 3:30 AM ASSEMBLER TYPE BAR AND SEGMENT Riky Mejía MD POINT OF CARE TESTING Final Result Performing Organization Address [facility] Phone Number INTERFACE SYSTEM Refer to clinic/hospital department [facility] CLIA# [id number] [address] [place] [address] * (ABNORMAL) POC GLUCOSE (05/11/2008 7:38 AM ASSEMBLER TYPE BAR AND SEGMENT) GLUCOSE POC 121(H) 60 - 100 mg/dL [facility] Venous blood specimen (specimen) 05/11/2008 7:38 AM ASSEMBLER TYPE BAR AND SEGMENT 05/12/2008 3:33 AM ASSEMBLER TYPE BAR AND SEGMENT Riky Mejía MD POINT OF CARE TESTING Final Result Performing Organization Address [facility] de Phone Number INTERFACE SYSTEM Refer to clinic/[facility] CLIA# [id number] [address] [place] [address] * (ABNORMAL) POC GLUCOSE (05/10/2008 9:54 PM ASSEMBLER TYPE BAR AND SEGMENT) GLUCOSE POC 122(H) 60 - 100 mg/dL [facility] Venous blood specimen (specimen) 05/10/2008 9:54 PM ASSEMBLER TYPE BAR AND SEGMENT 05/11/2008 4:24 AM ASSEMBLER TYPE BAR AND SEGMENT Riky Mejía MD POINT OF CARE TESTING Final Result Performing Organization Address [facility] Phone Number INTERFACE SYSTEM Refer to clinic/hospital department [facility] CLIA# [id number] [address] [place] [address] * (ABNORMAL) POC GLUCOSE (05/10/2008 5:34 PM ASSEMBLER TYPE BAR AND SEGMENT) GLUCOSE POC 111(H) 60 - 100 mg/dL [facility] Venous blood specimen (specimen) 05/10/2008 5:34 PM ASSEMBLER TYPE BAR AND SEGMENT 05/11/2008 4:24 AM ASSEMBLER TYPE BAR AND SEGMENT Riky Mejía MD POINT OF CARE TESTING Final Result Performing Organization Address [facility] Phone Number INTERFACE SYSTEM Refer to clinic/hospital department [facility] CLIA# [id number] [address] [place] [address] * (ABNORMAL) POC GLUCOSE (05/10/2008 12:08 PM ASSEMBLER TYPE BAR AND SEGMENT) GLUCOSE POC 127(H) 60 - 100 mg/dL [facility] Venous blood specimen (specimen) 05/10/2008 12:08 PM ASSEMBLER TYPE BAR AND SEGMENT 05/11/2008 4:18 AM ASSEMBLER TYPE BAR AND SEGMENT Riky Mejía MD POINT OF CARE TESTING Final Result Performing Organization Address [facility] de Phone Number INTERFACE SYSTEM Refer to clinic/hospital department [facility] CLIA# [id number] [address] [place] [address] * (ABNORMAL) POC GLUCOSE (05/10/2008 8:31 AM ASSEMBLER TYPE BAR AND SEGMENT) GLUCOSE POC 122(H) 60 - 100 mg/dL [facility] Venous blood specimen (specimen) 05/10/2008 8:31 AM ASSEMBLER TYPE BAR AND SEGMENT 05/11/2008 4:18 AM ASSEMBLER TYPE BAR AND SEGMENT Riky Mejía MD POINT OF CARE TESTING Final Result INTERFACE SYSTEM Refer to clinic/hospital department [facility] CLIA# [id number] [address] [place] [address] * (ABNORMAL) COMPREHENSIVE METABOLIC PANEL (05/10/2008 5:47 AM ASSEMBLER TYPE BAR AND SEGMENT) GLOBULIN (CALC) 2.3(L) 2.4 - 3.9 g/dL [facility] SODIUM 141 136 - 145 mEq/L [facility] BILIRUBIN TOTAL 0.4 0.3 - 1.2 mg/dL [facility] TOTAL PROTEIN 5.0(L) 6.3 - 8.2 g/dL [facility] BUN 7 7 - 17 mg/dL [facility] AST 24 8 - 33 U/L [facility] CO2 30 22 - 32 mmol/l [facility] ALBUMIN/GLOBULIN RATIO 1.2 1.0 - 2.3 [facility] ALBUMIN 2.7(L) 3.5 - 5.0 g/dL [facility] POTASSIUM 3.3(L) 3.5 - 5.0 mEq/L [facility] ANION GAP 7(L) 9 - 20 mEq/L [facility] CALCIUM 8.0(L) 8.4 - 10.5 mg/dL [facility] CREATININE 0.4(L) 0.7 - 1.2 mg/dL [facility] ALT 10 4 - 36 IU/L [facility] GLUCOSE 99 70 - 110 mg/dL [facility] CHLORIDE 107 95 - 110 mEq/L [facility] OSMOLALITY, CALCULATED 286 275 - 295 mOsm/Kg [facility] ALKALINE PHOSPHATASE 73 25 - 100 U/L [facility] Blood specimen (specimen) 05/10/2008 5:47 AM ASSEMBLER TYPE BAR AND SEGMENT 05/10/2008 5:52 AM ASSEMBLER TYPE BAR AND SEGMENT Riky Mejía MD CHEMISTRY ORDERABLES Final Result INTERFACE SYSTEM Refer to clinic/hospital department [facility] CLIA# [id number] [facility] [place] [address] * (ABNORMAL) CBC WITH DIFFERENTIAL (05/10/2008 5:47 AM ASSEMBLER TYPE BAR AND SEGMENT) LYMPHOCYTE ABSOLUTE 0.9(L) 1.2 - 4.0 K/ul [facility] MCV 96.4 84.0 - 103.0 Fl [facility] MPV 10.1 8.9 - 12.8 Fl [facility] BASOPHILS ABSOLUTE 0.0 0.0 - 0.2 K/ul [facility] BASOPHILS 0.7 0.0 - 1.0 % [facility] HEMOGLOBIN 8.3(L) 12.0 - 16.0 g/dL [facility] RDW 18.6(H) 11.0 - 14.5 % [facility] MONOCYTE ABSOLUTE 0.6 0.1 - 0.6 K/ul [facility] MONOCYTES 9.3 2.0 - 10.0 % [facility] WBC 6.1 4.5 - 11.0 K/ul [facility] MCH 29.5 27.0 - 34.0 pg [facility] NEUTROPHIL ABSOLUTE 4.3 2.0 - 8.0 K/ul [facility] NEUTROPHILS 70.5 42.2 - 75.2 % [facility] HEMATOCRIT 27.1(L) 36.0 - 46.0 % [facility] EOSINOPHILS 4.1 0.0 - 7.0 % [facility] PLATELETS 278 140 - 440 K/ul [facility] PERIPHERAL BLOOD SMEAR REVIEW Automated Diff [facility] EOSINOPHIL ABSOLUTE 0.3 0.0 - 0.7 K/ul [facility] RBC 2.81(L) 4.20 - 5.40 Mil/ul [facility] LYMPHOCYTES 15.4(L) 24.0 - 44.0 % [facility] MCHC 30.6 30.0 - 35.0 g/dL [facility] Blood specimen (specimen) 05/10/2008 5:47 AM ASSEMBLER TYPE BAR AND SEGMENT 05/10/2008 5:52 AM ASSEMBLER TYPE BAR AND SEGMENT us Ottoniel Vanegas MD HEMATOLOGY ORDERABLES Teresa l Result Performing Organization Address [facility] Phone Number INTERFACE SYSTEM Refer to clinic/hospital department [facility] CLIA# [id number] [address] [place] [address] * (ABNORMAL) POC GLUCOSE (05/09/2008 9:17 PM ASSEMBLER TYPE BAR AND SEGMENT) COMMENT POC Follow Protocol [facility] GLUCOSE POC 116(H) 60 - 100 mg/dL [facility] Venous blood specimen (specimen) 05/09/2008 9:17 PM ASSEMBLER TYPE BAR AND SEGMENT 05/10/2008 3:50 AM ASSEMBLER TYPE BAR AND SEGMENT us Riky Mejía MD POINT OF CARE TESTING Final Result Performing Organization Address [facility] Phone Number INTERFACE SYSTEM Refer to clinic/hospital department [facility] CLIA# [id number] [address] [place] [address] * POC GLUCOSE (05/09/2008 6:31 PM ASSEMBLER TYPE BAR AND SEGMENT) GLUCOSE POC 96 60 - 100 mg/dL [facility] Venous blood specimen (specimen) 05/09/2008 6:31 PM ASSEMBLER TYPE BAR AND SEGMENT 05/10/2008 3:50 AM ASSEMBLER TYPE BAR AND SEGMENT us Riky Mejía MD POINT OF CARE TESTING Final Result Performing Organization Address [facility] de Phone Number INTERFACE SYSTEM Refer to clinic/hospital department [facility] CLIA# [id number] [address] [place] [address] * (ABNORMAL) POC GLUCOSE (05/09/2008 12:20 PM ASSEMBLER TYPE BAR AND SEGMENT) GLUCOSE POC 123(H) 60 - 100 mg/dL [facility] Venous blood specimen (specimen) 05/09/2008 12:20 PM ASSEMBLER TYPE BAR AND SEGMENT 05/10/2008 3:50 AM ASSEMBLER TYPE BAR AND SEGMENT Riky Mejía MD POINT OF CARE TESTING Final Result Performing Organization Address [facility] de Phone Number INTERFACE SYSTEM Refer to clinic/hospital department [facility] CLIA# [id number] [address] [place] [address] * (ABNORMAL) POC GLUCOSE (05/09/2008 8:50 AM ASSEMBLER TYPE BAR AND SEGMENT) GLUCOSE POC 139(H) 60 - 100 mg/dL [facility] Venous blood specimen (specimen) 05/09/2008 8:50 AM ASSEMBLER TYPE BAR AND SEGMENT 05/10/2008 3:50 AM ASSEMBLER TYPE BAR AND SEGMENT Riky Mejía MD POINT OF CARE TESTING Final Result Performing Organization Address [facility] de Phone Number INTERFACE SYSTEM Refer to clinic/hospital department [facility] CLIA# [id number] [address] [place] [address] * (ABNORMAL) POC GLUCOSE (05/08/2008 8:06 PM CDT) GLUCOSE POC 115(H) 60 - 100 mg/dL [facility] COMMENT POC Recheck result [facility] Venous blood specimen (specimen) 05/08/2008 8:06 PM CDT 05/10/2008 7:16 AM ASSEMBLER TYPE BAR AND SEGMENT Riky Mejía MD POINT OF CARE TESTING Final Result Performing Organization Address [facility] de Phone Number INTERFACE SYSTEM Refer to clinic/hospital department [facility] CLIA# [id number] [address] [place] [address] * (ABNORMAL) POC GLUCOSE (05/08/2008 6:26 PM CDT) COMMENT POC Recheck result [facility] GLUCOSE POC 119(H) 60 - 100 mg/dL [facility] Venous blood specimen (specimen) 05/08/2008 6:26 PM CDT 05/10/2008 7:16 AM ASSEMBLER TYPE BAR AND SEGMENT Riky Mejía MD POINT OF CARE TESTING Final Result Performing Organization Address [facility] de Phone Number INTERFACE SYSTEM Refer to clinic/hospital department [facility] CLIA# [id number] [address] [place] [address] * (ABNORMAL) POC GLUCOSE (05/08/2008 12:27 PM CDT) [facility] GLUCOSE POC 130(H) 60 - 100 mg/dL [facility] Venous blood specimen (specimen) 05/08/2008 12:27 PM CDT 05/09/2008 1:13 AM CDT Riky Mejía MD POINT OF CARE TESTING Final Result Performing Organization Address [facility] Phone Number INTERFACE SYSTEM Refer to clinic/hospital department [facility] CLIA# [id number] [address] [place] [address] * (ABNORMAL) CBC WITH DIFFERENTIAL (05/08/2008 7:35 AM CDT) HEMOGLOBIN 8.0(L) 12.0 - 16.0 g/dL [facility] MONOCYTES 8.7 2.0 - 10.0 % [facility] RDW 18.5(H) 11.0 - 14.5 % [facility] MONOCYTE ABSOLUTE 0.7(H) 0.1 - 0.6 K/ul [facility] WBC 7.5 4.5 - 11.0 K/ul [facility] NEUTROPHILS 73.3 42.2 - 75.2 % [facility] MCH 29.7 27.0 - 34.0 pg [facility] NEUTROPHIL ABSOLUTE 5.5 2.0 - 8.0 K/ul [facility] HEMATOCRIT 25.8(L) 36.0 - 46.0 % [facility] PLATELETS 219 140 - 440 K/ul [facility] EOSINOPHIL ABSOLUTE 0.3 0.0 - 0.7 K/ul [facility] EOSINOPHILS 4.3 0.0 - 7.0 % [facility] RBC 2.69(L) 4.20 - 5.40 Mil/ul [facility] MCHC 31.0 30.0 - 35.0 g/dL [facility] LYMPHOCYTE ABSOLUTE 0.9(L) 1.2 - 4.0 K/ul [facility] LYMPHOCYTES 12.6(L) 24.0 - 44.0 % [facility] MCV 95.9 84.0 - 103.0 Fl [facility] BASOPHILS 1.1(H) 0.0 - 1.0 % [facility] MPV 10.6 8.9 - 12.8 Fl [facility] BASOPHILS ABSOLUTE 0.1 0.0 - 0.2 K/ul [facility] Blood specimen (specimen) 05/08/2008 7:35 AM CDT 05/08/2008 7:48 AM CDT us Riky Mejía MD HEMATOLOGY ORDERABLES Final Result INTERFACE SYSTEM Refer to clinic/hospital department [facility] CLIA# [id number] [facility] [place] [address] * (ABNORMAL) POC GLUCOSE (05/08/2008 5:15 AM CDT) GLUCOSE POC 132(H) 60 - 100 mg/dL [facility] Venous blood specimen (specimen) 05/08/2008 5:15 AM CDT 05/09/2008 1:13 AM CDT Riky Mejía MD POINT OF CARE TESTING Final Result Performing Organization Address [facility] de Phone Number INTERFACE SYSTEM Refer to clinic/hospital department [facility] CLIA# [id number] [address] [place] [address] * (ABNORMAL) POC GLUCOSE (05/07/2008 8:43 PM CDT) GLUCOSE POC 137(H) 60 - 100 mg/dL [facility] COMMENT POC Recheck result [facility] Venous blood specimen (specimen) 05/07/2008 8:43 PM CDT 05/10/2008 7:16 AM ASSEMBLER TYPE BAR AND SEGMENT Riky Mejía MD POINT OF CARE TESTING Final Result Performing Organization Address [facility] de Phone Number INTERFACE SYSTEM Refer to clinic/hospital department [facility] CLIA# [id number] [address] [place] [address] * (ABNORMAL) POC GLUCOSE (05/07/2008 5:13 PM CDT) GLUCOSE POC 137(H) 60 - 100 mg/dL [facility] COMMENT POC Recheck result [facility] Venous blood specimen (specimen) 05/07/2008 5:13 PM CDT 05/10/2008 7:16 AM ASSEMBLER TYPE BAR AND SEGMENT Riky Mejía MD POINT OF CARE TESTING Final Result Performing Organization Address [facility] de Phone Number INTERFACE SYSTEM Refer to clinic/hospital department [facility] CLIA# [id number] [address] [place] [address] * (ABNORMAL) POC GLUCOSE (05/07/2008 12:06 PM CDT) COMMENT POC Notify RN [facility] GLUCOSE POC 159(H) 60 - 100 mg/dL [facility] Venous blood specimen (specimen) 05/07/2008 12:06 PM CDT 05/08/2008 3:26 AM CDT Riky Mejía MD POINT OF CARE TESTING Final Result Performing Organization Address [facility] de Phone Number INTERFACE SYSTEM Refer to clinic/hospital department [facility] CLIA# [id number] [address] [place] [address] * (ABNORMAL) POC GLUCOSE (05/07/2008 8:20 AM CDT) GLUCOSE POC 135(H) 60 - 100 mg/dL [facility] COMMENT POC Notify R.N [facility] Venous blood specimen (specimen) 05/07/2008 8:20 AM CDT 05/08/2008 3:26 AM CDT Riky Meíja MD POINT OF CARE TESTING Final Result Performing Organization Address [facility] de Phone Number INTERFACE SYSTEM Refer to clinic/hospital department [facility] CLIA# [id number] [address] [place] [address] * (ABNORMAL) POC GLUCOSE (05/07/2008 5:22 AM CDT) GLUCOSE POC 133(H) 60 - 100 mg/dL [facility] Venous blood specimen (specimen) 05/07/2008 5:22 AM CDT 05/08/2008 3:25 AM CDT us Riky Mejía MD POINT OF CARE TESTING Final Result Performing Organization Address [facility] de Phone Number INTERFACE SYSTEM Refer to clinic/hospital department [facility] CLIA# [id number] [address] [place] [address] * (ABNORMAL) POC GLUCOSE (05/06/2008 8:39 PM CDT) GLUCOSE POC 116(H) 60 - 100 mg/dL [facility] COMMENT POC Notify R.N [facility] Venous blood specimen (specimen) 05/06/2008 8:39 PM CDT 05/07/2008 3:27 AM CDT us Riky Mejía MD POINT OF CARE TESTING Final Result INTERFACE SYSTEM Refer to clinic/hospital department [facility] CLIA# [id number] [address] [place] [address] * CT ABDOMEN PELVIS W CONTRAST (05/06/2008 [...] GLUCOSE POC 126(H) 60 - 100 mg/dL [facility] Venous blood specimen (specimen) 05/06/2008 5:38 PM CDT 05/07/2008 3:27 AM CDT Riky Mejía MD POINT OF CARE TESTING Final Result Performing Organization Address [facility] de Phone Number INTERFACE SYSTEM Refer to clinic/hospital department [facility] CLIA# [id number] [address] [place] [address] * (ABNORMAL) POC GLUCOSE (05/06/2008 12:55 PM CDT) GLUCOSE POC 120(H) 60 - 100 mg/dL [facility] Venous blood specimen (specimen) 05/06/2008 12:55 PM CDT 05/07/2008 3:27 AM CDT Riky Mejía MD POINT OF CARE TESTING Final Result Performing Organization Address [facility] Phone Number INTERFACE SYSTEM Refer to clinic/hospital department [facility] CLIA# [id number] [address] [place] [address] * (ABNORMAL) POC GLUCOSE (05/06/2008 8:03 AM CDT) GLUCOSE POC 134(H) 60 - 100 mg/dL [facility] Venous blood specimen (specimen) 05/06/2008 8:03 AM CDT 05/07/2008 3:24 AM CDT Riky Mejía MD POINT OF CARE TESTING Final Result Performing Organization Address [facility] de Phone Number INTERFACE SYSTEM Refer to clinic/hospital [facility] CLIA# [id number] [address] [place] [address] * (ABNORMAL) BASIC METABOLIC PANEL (05/06/2008 5:34 AM CDT) CREATININE 0.5(L) 0.7 - 1.2 mg/dL [facility] CALCIUM 8.1(L) 8.4 - 10.5 mg/dL [facility] GLUCOSE 111(H) 70 - 110 mg/dL [facility] CHLORIDE 107 95 - 110 mEq/L [facility] ANION GAP 11 9 - 20 mEq/L [facility] SODIUM 137 136 - 145 mEq/L [facility] BUN 10 7 - 17 mg/dL [facility] CO2 23 22 - 32 mmol/l [facility] POTASSIUM 3.7 3.5 - 5.0 mEq/L [facility] OSMOLALITY, CALCULATED 281 275 - 295 mOsm/Kg [facility] Blood specimen (specimen) 05/06/2008 5:34 AM CDT 05/06/2008 5:34 AM CDT us Riky Mejía MD CHEMISTRY ORDERABLES Final Result INTERFACE SYSTEM Refer to clinic/hospital department [facility] CLIA# [id number] [address] [place] [address] * (ABNORMAL) CBC WITH DIFFERENTIAL (05/06/2008 5:34 AM CDT) LYMPHOCYTES 11.5(L) 24.0 - 44.0 % [facility] MCHC 30.9 30.0 - 35.0 g/dL [facility] LYMPHOCYTE ABSOLUTE 0.9(L) 1.2 - 4.0 K/ul [facility] MCV 96.3 84.0 - 103.0 Fl [facility] MPV 11.1 8.9 - 12.8 Fl [facility] BASOPHILS ABSOLUTE 0.0 0.0 - 0.2 K/ul [facility] BASOPHILS 0.4 0.0 - 1.0 % [facility] HEMOGLOBIN 8.0(L) 12.0 - 16.0 g/dL [facility] RDW 18.5(H) 11.0 - 14.5 % [facility] MONOCYTE ABSOLUTE 0.7(H) 0.1 - 0.6 K/ul [facility] MONOCYTES 9.2 2.0 - 10.0 % [facility] WBC 7.7 4.5 - 11.0 K/ul [facility] MCH 29.7 27.0 - 34.0 pg [facility] NEUTROPHIL ABSOLUTE 5.8 2.0 - 8.0 K/ul [facility] NEUTROPHILS 75.3(H) 42.2 - 75.2 % [facility] HEMATOCRIT 25.9(L) 36.0 - 46.0 % [facility] EOSINOPHILS 3.6 0.0 - 7.0 % [facility] PLATELETS 203 140 - 440 K/ul [facility] PERIPHERAL BLOOD SMEAR REVIEW Automated Diff [facility] EOSINOPHIL ABSOLUTE 0.3 0.0 - 0.7 K/ul [facility] RBC 2.69(L) 4.20 - 5.40 Mil/ul [facility] Blood specimen (specimen) 05/06/2008 5:34 AM CDT 05/06/2008 5:34 AM CDT us Riky Mejía MD HEMATOLOGY ORDERABLES Final Result Performing Organization Address City/[facility] de Phone Number INTERFACE SYSTEM Refer to clinic/hospital department [facility] CLIA# [id number] [address] [place] [id number] * (ABNORMAL) POC GLUCOSE (05/05/2008 8:26 PM CDT) GLUCOSE POC 157(H) 60 - 100 mg/dL [facility] Venous blood specimen (specimen) 05/05/2008 8:26 PM CDT 05/06/2008 3:31 AM CDT us Riky Mejía MD POINT OF CARE TESTING Final Result Performing Organization Address City/[facility] de Phone Number INTERFACE SYSTEM Refer to clinic/hospital department [facility] CLIA# [id number] [address] [place] [address] * (ABNORMAL) POC GLUCOSE (05/05/2008 4:57 PM CDT) GLUCOSE POC 124(H) 60 - 100 mg/dL [facility] Venous blood specimen (specimen) 05/05/2008 4:57 PM CDT 05/06/2008 3:31 AM CDT Riky Mejía MD POINT OF CARE TESTING Final Result Performing Organization Address [facility] de Phone Number INTERFACE SYSTEM Refer to clinic/hospital department [facility] CLIA# [id number] [address] [place] [address] * (ABNORMAL) POC GLUCOSE (05/05/2008 11:30 AM CDT) GLUCOSE POC 127(H) 60 - 100 mg/dL [facility] Venous blood specimen (specimen) 05/05/2008 11:30 AM CDT 05/06/2008 3:31 AM CDT Riky Mejía MD POINT OF CARE TESTING Final Result Performing Organization Address [facility] de Phone Number INTERFACE SYSTEM Refer to clinic/hospital department [facility] CLIA# [id number] [address] [place] [address] * (ABNORMAL) POC GLUCOSE (05/05/2008 8:05 AM CDT) GLUCOSE POC 137(H) 60 - 100 mg/dL [facility] Venous blood specimen (specimen) 05/05/2008 8:05 AM CDT 05/06/2008 3:31 AM CDT Riky Mejía MD POINT OF CARE TESTING Final Result Performing Organization Address City/[facility] de Phone Number INTERFACE SYSTEM Refer to clinic/hospital department [facility] CLIA# [id number] [address] [place] [address] * (ABNORMAL) POC GLUCOSE (05/04/2008 9:56 PM CDT) GLUCOSE POC 115(H) 60 - 100 mg/dL [facility] Venous blood specimen (specimen) 05/04/2008 9:56 PM CDT 05/05/2008 2:27 AM CDT Riky Mejía MD POINT OF CARE TESTING Final Result Performing Organization Address [facility] de Phone Number INTERFACE SYSTEM Refer to clinic/hospital department [facility] CLIA# [id number] [address] [place] [address] * (ABNORMAL) POC GLUCOSE (05/04/2008 5:34 PM CDT) GLUCOSE POC 120(H) 60 - 100 mg/dL [facility] Venous blood specimen (specimen) 05/04/2008 5:34 PM CDT 05/05/2008 5:02 AM CDT Riky Mejía MD POINT OF CARE TESTING Final Result Performing Organization Address [facility] de Phone Number INTERFACE SYSTEM Refer to clinic/hospital department [facility] CLIA# [id number] [address] [place] [address] * (ABNORMAL) POC GLUCOSE (05/04/2008 11:15 AM CDT) GLUCOSE POC 133(H) 60 - 100 mg/dL [facility] Venous blood specimen (specimen) 05/04/2008 11:15 AM CDT 05/05/2008 2:27 AM CDT Riky Mejía MD POINT OF CARE TESTING Final Result Performing Organization Address City/[facility] Co de Phone Number INTERFACE SYSTEM Refer to clinic/hospital department [facility] CLIA# [id number] [address] [place] [address] * URINE CULTURE (05/04/2008 9:06 AM CDT) FINAL REPORT No growth INTERFA CE SYSTEM 05/04/2008 9:06 AM CDT 05/04/2008 9:06 AM CDT us Riky Mejía MD MICROBIOLOGY - GENERAL [facility]DE [facility] Final Result Performing Organization Address [facility] Phone Number INTERFACE SYSTEM Refer to clinic/hospital department * (ABNORMAL) POC GLUCOSE (05/04/2008 7:37 AM CDT) GLUCOSE POC 139(H) 60 - 100 mg/dL [facility] Venous blood specimen (specimen) 05/04/2008 7:37 AM CDT 05/05/2008 2:27 AM CDT us Riky Mejía MD POINT OF CARE TESTING Final Result Performing Organization Address [facility] Phone Number INTERFACE SYSTEM Refer to clinic/hospital department [facility] CLIA# [id number] [address] [place], [place] [address] * (ABNORMAL) URINALYSIS MICROSCOPY ONLY (05/04/2008 2:12 AM CDT) HYALINE CAST None Seen 0 - 2 [facility] WBC URINE 0-2 0 - 2 [facility] BACTERIA UA Small(A) None Seen [facility] RBC UA 6-10(A) 0 - 2 [facility] Urine specimen (specimen) 05/04/2008 2:12 AM CDT 05/04/2008 2:12 AM CDT Narrative INTERFACE SYSTEM - 05/04/2008 2:30 AM CDT Microscopic ordered by policy us Riky Mejía MD URINE ORDERABLES Final Resu lt Performing Organization Address [facility] Phone Number INTERFACE SYSTEM Refer to clinic/hospital department [facility] CLIA# [id number] [address] [place] [address] * ICTOTEST (05/04/2008 2:12 AM CDT) Pathologist [facility] ICTO Negative Negative [facility] Urine specimen (specimen) 05/04/2008 2:12 AM CDT 05/04/2008 2:12 AM CDT Narrative INTERFACE SYSTEM - 05/04/2008 2:30 AM CDT Bili verified by ictotest us Riky Mejía MD URINE ORDERABLES Final Resu lt Performing Organization Address [facility] de Phone Number INTERFACE SYSTEM Refer to clinic/hospital department [facility] CLIA# [id number] [address] [place] [address] * (ABNORMAL) URINALYSIS (05/04/2008 2:12 AM CDT) Pathologist [facility] LEUKOCYTE ESTERASE UA NEGATIVE NEGATIVE [facility] KETONES UA Trace(A) NEGATIVE [facility] COLOR UA Yellow Straw [facility] PROTEIN UA 100 mg/dl(A) NEGATIVE [facility] SPECIFIC GRAVITY UA 1.010 <=1.005 [facility] NITRITE UA NEGATIVE NEGATIVE [facility] UROBILINOGEN UA 0.2 0.2 [facility] CLARITY UA Clear Clear [facility] GLUCOSE UA NEGATIVE NEGATIVE [facility] MICRO EXAM Yes(A) No [facility] PH UA 6.5 5.0 - 9.0 [facility] BLOOD UA MODERATE(A) NEGATIVE [facility] Urine specimen (specimen) 05/04/2008 2:12 AM CDT 05/04/2008 2:12 AM CDT us Riky Mejía MD URINE ORDERABLES Final Resu lt Performing Organization Address [facility] de Phone Number INTERFACE SYSTEM Refer to clinic/hospital department [facility] CLIA# [id number] [address] [place] [address] * BLOOD CULTURE (05/04/2008 2:02 AM CDT) Pathologist [facility] FINAL REPORT No growth INTERFA CE SYSTEM Blood specimen (specimen) 05/04/2008 2:02 AM CDT 05/04/2008 3:36 AM CDT us Riky Mejía MD [facility] Final Result Performing Organization Address [facility] Phone Number INTERFACE SYSTEM Refer to clinic/hospital department * (ABNORMAL) BASIC METABOLIC PANEL (05/04/2008 1:55 AM CDT) Pathologist [facility] OSMOLALITY, CALCULATED 282 275 - 295 mOsm/Kg [facility] POTASSIUM 4.3 3.5 - 5.0 mEq/L [facility] CREATININE 0.6(L) 0.7 - 1.2 mg/dL [facility] CALCIUM 9.0 8.4 - 10.5 mg/dL [facility] GLUCOSE 120(H) 70 - 110 mg/dL [facility] CHLORIDE 108 95 - 110 mEq/L [facility] SODIUM 135(L) 136 - 145 mEq/L [facility] ANION GAP 10 9 - 20 mEq/L [facility] BUN 17 7 - 17 mg/dL [facility] CO2 21(L) 22 - 32 mmol/l [facility] Blood specimen (specimen) 05/04/2008 1:55 AM CDT 05/04/2008 2:49 AM CDT us Riky Mejía MD CHEMISTRY ORDERABLES Final Result Performing Organization Address [facility] de Phone Number INTERFACE SYSTEM Refer to clinic/hospital department [facility] CLIA# [id number] [address] [place] [address] * (ABNORMAL) CBC WITH DIFFERENTIAL (05/04/2008 1:55 AM CDT) PERIPHERAL BLOOD SMEAR REVIEW Automated Diff [facility] EOSINOPHIL ABSOLUTE 0.2 0.0 - 0.7 K/ul [facility] RBC 2.86(L) 4.20 - 5.40 Mil/ul [facility] MCHC 31.6 30.0 - 35.0 g/dL [facility] LYMPHOCYTES 11.5(L) 24.0 - 44.0 % [facility] LYMPHOCYTE ABSOLUTE 1.0(L) 1.2 - 4.0 K/ul [facility] MCV 96.2 84.0 - 103.0 Fl [facility] MPV 11.1 8.9 - 12.8 Fl [facility] BASOPHILS ABSOLUTE 0.0 0.0 - 0.2 K/ul [facility] BASOPHILS 0.4 0.0 - 1.0 % [facility] HEMOGLOBIN 8.7(L) 12.0 - 16.0 g/dL [facility] RDW 18.6(H) 11.0 - 14.5 % [facility] MONOCYTE ABSOLUTE 1.0(H) 0.1 - 0.6 K/ul [facility] MONOCYTES 10.9(H) 2.0 - 10.0 % [facility] WBC 8.9 4.5 - 11.0 K/ul [facility] NEUTROPHILS 75.1 42.2 - 75.2 % [facility] MCH 30.4 27.0 - 34.0 pg [facility] NEUTROPHIL ABSOLUTE 6.7 2.0 - 8.0 K/ul [facility] HEMATOCRIT 27.5(L) 36.0 - 46.0 % [facility] PLATELETS 180 140 - 440 K/ul [facility] EOSINOPHILS 2.1 0.0 - 7.0 % [facility] Blood specimen (specimen) 05/04/2008 1:55 AM CDT 05/04/2008 2:25 AM CDT us Riky Mejía MD HEMATOLOGY ORDERABLES Final Result Performing Organization Address [facility] de Phone Number INTERFACE SYSTEM Refer to clinic/hospital department [facility] CLIA# [id number] [address] [place] [address] * BLOOD CULTURE (05/04/2008 1:55 AM CDT) FINAL REPORT No growth INTERFA CE SYSTEM REPORT/SPECIM EN COMMENT Specimen processed with suboptimal blood volume. Recommended adult blood volume is 8-10 mL per bottle. INTERFACE SYSTEM Blood specimen (specimen) 05/04/2008 1:55 AM CDT 05/04/2008 3:36 AM CDT us Riky Mejía MD MICROBIOLOGY - GENERAL ORDE [facility] Final Result Performing Organization Address [facility] Phone Number INTERFACE SYSTEM Refer to clinic/hospital department * (ABNORMAL) POC GLUCOSE (05/03/2008 9:24 PM CDT) GLUCOSE POC 137(H) 60 - 100 mg/dL [facility] Venous blood specimen (specimen) 05/03/2008 9:24 PM CDT 05/04/2008 4:27 AM CDT us Riky Mejía MD POINT OF CARE TESTING Final Result Performing Organization Address [facility] Phone Number INTERFACE SYSTEM Refer to clinic/hospital department [facility] CLIA# [id number] [facility] [place] [address] * (ABNORMAL) POC GLUCOSE (05/03/2008 4:35 PM CDT) GLUCOSE POC 128(H) 60 - 100 mg/dL [facility] Venous blood specimen (specimen) 05/03/2008 4:35 PM CDT 05/04/2008 4:27 AM CDT us Riky Mejía MD POINT OF CARE TESTING Final Result INTERFACE SYSTEM Refer to clinic/hospital department [facility] CLIA# [id number] [place] [address] * CT ABDOMEN PELVIS W CONTRAST (05/03/2008 [...] mm volumetric acquisition with 125 mL intravenous [id number]. Comparison: None. Findings: Consolidative atelectasis versus airspace [...] APTT (05/03/2008 9:00 AM CDT) INR 1.3 [facility] Comment: Expected Values for INR: DVT/PE Goal INR 2.5; range 2.0 - 3.0 Valve Replacement Tissue Goal INR 2.5; range 2.0 - 3.0 Mechanical Goal INR 3.0; range 2.5 - 3.5 POST-IL Goal INR 2.5; range 2.0 - 3.0 or Goal 3.0; range 2.5 - 3.5 Atrial Fibrillation Goal INR 2.5; range 2.0 - 3.0 Ischemic Stroke Goal INR 2.5; range 2.0 - 3.0 For additional information see Guidelines for Anticoagulation available from the pharmacy [facility]. [phone] PTT 38.5(H) 22.5 - 36.5 Secs [facility] Comment: Therapeutic Range: Hi-level PE/DVT heparin protocol 80.1 -95.0 sec Lo-level PE/DVT heparin protocol 67.1 - 80.0 sec Cardiac Heparin Protocol 67.1 - 85.0 sec Neuro Heparin Protocol 67.1 - 80.0 sec As of 09/25/2007 note change in APTT Normal Range. PROTIME 18.0(H) 12.8 - 15.8 Secs [facility] Comment:As of 2007 not e change in normal range. Blood specimen (specimen) 05/03/2008 9:00 AM CDT 05/03/2008 9:10 AM CDT Narrative INTERFACE SYSTEM - 05/03/2008 9:23 AM CDT use blood in the lab us Riky Mejía MD HEMATOLOGY ORDERABLES Edite d INTERFACE SYSTEM Refer to clinic/hospital department [facility] CLIA# [id number] [address] [place] [address] * (ABNORMAL) BASIC METABOLIC PANEL (05/03/2008 5:39 AM CDT) GLUCOSE 122(H) 70 - 110 mg/dL [facility] CHLORIDE 106 95 - 110 mEq/L [facility] SODIUM 135(L) 136 - 145 mEq/L [facility] ANION GAP 14 9 - 20 mEq/L [facility] BUN 20(H) 7 - 17 mg/dL [facility] CO2 20(L) 22 - 32 mmol/l [facility] OSMOLALITY, CALCULATED 284 275 - 295 mOsm/Kg [facility] POTASSIUM 5.0 3.5 - 5.0 mEq/L [facility] CREATININE 0.6(L) 0.7 - 1.2 mg/dL [facility] CALCIUM 9.1 8.4 - 10.5 mg/dL [facility] Blood specimen (specimen) 05/03/2008 5:39 AM CDT 05/03/2008 6:15 AM CDT us Riky Mejía MD CHEMISTRY ORDERABLES Final Result INTERFACE SYSTEM Refer to clinic/hospital department [facility] CLIA# [id number] [address] [place] [address] * (ABNORMAL) CBC WITH DIFFERENTIAL (05/03/2008 5:39 AM CDT) HEMATOCRIT 28.4(L) 36.0 - 46.0 % [facility] LYMPHOCYTE ABSOLUTE 0.6(L) 1.2 - 4.0 K/ul [facility] LYMPHOCYTES 5.9(L) 24.0 - 44.0 % [facility] MCHC 31.3 30.0 - 35.0 g/dL [facility] BASOPHILS 0.2 0.0 - 1.0 % [facility] MPV 10.9 8.9 - 12.8 Fl [facility] WBC 10.2 4.5 - 11.0 K/ul [facility] BASOPHILS ABSOLUTE 0.0 0.0 - 0.2 K/ul [facility] PERIPHERAL BLOOD SMEAR REVIEW Automated Diff [facility] MCV 96.3 84.0 - 103.0 Fl [facility] MONOCYTES 9.9 2.0 - 10.0 % [facility] RDW 18.3(H) 11.0 - 14.5 % [facility] MONOCYTE ABSOLUTE 1.0(H) 0.1 - 0.6 K/ul [facility] RBC 2.95(L) 4.20 - 5.40 Mil/ul [facility] HEMOGLOBIN 8.9(L) 12.0 - 16.0 g/dL [facility] NEUTROPHILS 82.5(H) 42.2 - 75.2 % [facility] NEUTROPHIL ABSOLUTE 8.5(H) 2.0 - 8.0 K/ul [facility] MCH 30.2 27.0 - 34.0 pg [facility] PLATELETS 163 140 - 440 K/ul [facility] EOSINOPHIL ABSOLUTE 0.2 0.0 - 0.7 K/ul [facility] EOSINOPHILS 1.5 0.0 - 7.0 % [facility] Blood specimen (specimen) 05/03/2008 5:39 AM CDT 05/03/2008 6:15 AM CDT Riky Mejía MD HEMATOLOGY ORDERABLES Final Result Performing Organization Address City/[facility]/ZIP Co de Phone Number INTERFACE SYSTEM Refer to clinic/hospital department [facility] CLIA# [id number] [address] [place] [address] * URINE CULTURE (05/02/2008 10:05 PM CDT) FINAL REPORT No growth INTERFA CE SYSTEM 05/02/2008 10:0 5 PM CDT 05/02/2008 10:05 PM CDT Riky Mejía MD MICROBIOLOGY - [facility] Final Result Performing Organization Address [facility] de Phone Number INTERFACE SYSTEM Refer to clinic/hospital department * (ABNORMAL) URINALYSIS MICROSCOPY ONLY (05/02/2008 9:19 PM CDT) BACTERIA UA Few(A) None Seen [facility] WBC URINE 3-5(A) 0 - 2 [facility] RBC UA 0-2 0 - 2 [facility] HYALINE CAST 0-2 0 - 2 [facility] Urine specimen (specimen) 05/02/2008 9:19 PM CDT 05/02/2008 9:19 PM CDT Narrative INTERFACE SYSTEM - 05/02/2008 9:43 PM CDT Microscopic ordered by policy Riky Mejía MD URINE ORDERABLES Final Resu lt Performing Organization Address [facility] de Phone Number INTERFACE SYSTEM Refer to clinic/hospital department [facility] CLIA# [id number] [address] [place] [address] * (ABNORMAL) ICTOTEST (05/02/2008 9:19 PM CDT) ICTO Positive(A) Negative [facility] Urine specimen (specimen) 05/02/2008 9:19 PM CDT 05/02/2008 9:19 PM CDT Narrative INTERFACE SYSTEM - 05/02/2008 9:43 PM CDT Bili verified by ictotest us Riky Mejía MD URINE ORDERABLES Final Resu lt Performing Organization Address [facility] Phone Number INTERFACE SYSTEM Refer to clinic/hospital department [facility] CLIA# [id number] [address] [place] [address] * (ABNORMAL) URINALYSIS (05/02/2008 9:19 PM CDT) CLARITY UA Clear Clear [facility] MICRO EXAM Yes(A) No [facility] GLUCOSE UA NEGATIVE NEGATIVE [facility] PH UA 5.5 5.0 - 9.0 [facility] BLOOD UA NEGATIVE NEGATIVE [facility] LEUKOCYTE ESTERASE UA NEGATIVE NEGATIVE [facility] KETONES UA Trace(A) NEGATIVE [facility] COLOR UA Yellow Straw [facility] PROTEIN UA 100 mg/dl(A) NEGATIVE [facility] SPECIFIC GRAVITY UA >=1.030(A) <=1.005 [facility] NITRITE UA POSITIVE(A) NEGATIVE [facility] UROBILINOGEN UA 0.2 0.2 [facility] Urine specimen (specimen) 05/02/2008 9:19 PM CDT 05/02/2008 9:19 PM CDT Riky Mejía MD URINE ORDERABLES Final Resu lt Performing Organization Address [facility] Phone Number INTERFACE SYSTEM Refer to clinic/hospital department [facility] CLIA# [id number] [address] [place] [address] * (ABNORMAL) BASIC METABOLIC PANEL (05/02/2008 6:50 PM CDT) BUN 22(H) 7 - 17 mg/dL [facility] CO2 23 22 - 32 mmol/l [facility] POTASSIUM 5.3(H) 3.5 - 5.0 mEq/L [facility] Comment: Specimen slightly hemolyzed OSMOLALITY, CALCULATED 278 275 - 295 mOsm/Kg [facility] CREATININE 0.7 0.7 - 1.2 mg/dL [facility] CALCIUM 9.2 8.4 - 10.5 mg/dL [facility] GLUCOSE 124(H) 70 - 110 mg/dL [facility] CHLORIDE 101 95 - 110 mEq/L [facility] ANION GAP 12 9 - 20 mEq/L [facility] SODIUM 131(L) 136 - 145 mEq/L [facility] Blood specimen (specimen) 05/02/2008 6:50 PM CDT 05/02/2008 7:01 PM CDT us Riky Mejía MD CHEMISTRY ORDERABLES Final Result Performing Organization Address [facility] de Phone Number INTERFACE SYSTEM Refer to clinic/hospital department [facility] CLIA# [id number] [address] [place] [address] * (ABNORMAL) BASIC METABOLIC PANEL (05/02/2008 8:38 AM CDT) OSMOLALITY, CALCULATED 280 275 - 295 mOsm/Kg [facility] CREATININE 0.8 0.7 - 1.2 mg/dL [facility] CALCIUM 9.5 8.4 - 10.5 mg/dL [facility] GLUCOSE 123(H) 70 - 110 mg/dL [facility] CHLORIDE 100 95 - 110 mEq/L [facility] ANION GAP 13 9 - 20 mEq/L [facility] SODIUM 131(L) 136 - 145 mEq/L [facility] BUN 26(H) 7 - 17 mg/dL [facility] CO2 24 22 - 32 mmol/l [facility] POTASSIUM 5.5(H) 3.5 - 5.0 mEq/L [facility] Blood specimen (specimen) 05/02/2008 8:38 AM CDT 05/02/2008 8:43 AM CDT Riky Mejía MD CHEMISTRY ORDERABLES Final Result INTERFACE SYSTEM Refer to clinic/hospital department [facility] CLIA# [id number] [address] [place] [address] * (ABNORMAL) CBC WITH DIFFERENTIAL (05/02/2008 6:55 AM CDT) LYMPHOCYTE ABSOLUTE 1.4 1.2 - 4.0 K/ul [facility] MCV 95.8 84.0 - 103.0 Fl [facility] MPV 11.2 8.9 - 12.8 Fl [facility] BASOPHILS ABSOLUTE 0.1 0.0 - 0.2 K/ul [facility] BASOPHILS 0.4 0.0 - 1.0 % [facility] HEMOGLOBIN 10.8(L) 12.0 - 16.0 g/dL [facility] RDW 18.3(H) 11.0 - 14.5 % [facility] MONOCYTE ABSOLUTE 1.5(H) 0.1 - 0.6 K/ul [facility] MONOCYTES 11.3(H) 2.0 - 10.0 % [facility] WBC 13.0(H) 4.5 - 11.0 K/ul [facility] MCH 30.3 27.0 - 34.0 pg [facility] NEUTROPHIL ABSOLUTE 10.0(H) 2.0 - 8.0 K/ul [facility] NEUTROPHILS 76.9(H) 42.2 - 75.2 % [facility] HEMATOCRIT 34.2(L) 36.0 - 46.0 % [facility] EOSINOPHILS 0.8 0.0 - 7.0 % [facility] PLATELETS 164 140 - 440 K/ul [facility] PERIPHERAL BLOOD SMEAR REVIEW Automated Diff [facility] EOSINOPHIL ABSOLUTE 0.1 0.0 - 0.7 K/ul [facility] RBC 3.57(L) 4.20 - 5.40 Mil/ul [facility] LYMPHOCYTES 10.6(L) 24.0 - 44.0 % [facility] MCHC 31.6 30.0 - 35.0 g/dL [facility] Blood specimen (specimen) 05/02/2008 6:55 AM CDT 05/02/2008 7:02 AM CDT us Riky Mejía MD HEMATOLOGY ORDERABLES Final Result Performing Organization Address City/State/[facility] Co de Phone Number INTERFACE SYSTEM Refer to clinic/hospital department [facility] CLIA# [id number] [address] [place] [address] documented in this encounter Visit Diagnoses Diagnosis [...] procedure Peritoneal abscess ([facility]/HCC) Peritoneal abscess Unspecified protein-calorie malnutrition Pressure ulcer, stage IV(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.24) ([facility]) Pressure ulcer, stage IV Pressure ulcer, upper back(707.02) Pressure ulcer, upper back Pressure ulcer, stage III(707.23) ([facility]) Pressure ulcer, stage III Removal of other organ (partial) (total) causing abnormal patient reaction, or later complication, without mention of misadventure at time of operation documented in this encounter Additional Health Concerns Infection Onset Date Last Indicated Resolved Time MRSA Comment:Kapil 10/26/15 10/27/2015 10/27/2015 documented as of this encounter Care Teams Densitometrist Relationship Specialty Start Date End Date Jose Bowers MD [address] [place] [id number] PCP - General 12/31/05 documented as of this encounter
--- OUTSIDE RECORDS SUMMARY | 2025-04-29 15:17 | XMS_ITS | Encounter Summary ---
Author Organization [facility] Address [address] [place] [address] Care Team Providers Care Saw Grinder Name Role Phone Jose Bowers MD Primary Care Provider Unavailab le Encounter Details Date Type Department Care Team (Late st Contact Info) Description 02/14/2006 Outpatient Historical [facility]- [facility] [address] [place] [phone] Jose Bowers MD [address] [place] [address] Paraplegia (CMS/HCC) (Primary Dx) Social History Tobacco Use Types Packs/Day Years Used Date Smoking Tobacco: Never Assessed Comments Unknown Sex and Gender Information Value Date Recorded Sex Assigned at Not on file Legal Sex Female 6:28 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
--- OUTSIDE RECORDS SUMMARY | 2025-04-29 15:17 | XMS_ITS | Clinical Summary ---
Author Organization [facility] Address [address] [place] [address] Care Team Providers Care Flight Attendant Name Role Phone Jose Bowers MD [...] on file Legal Sex Female 6:28 AM FIRE ASSISTANT Gender Identity Not on file Sexual [...] AND B MEDICAID [place] [employer] , [address] [phone] Advance Directives For more information, please contact: [phone] * Full Code (Latest Code Status on File) Date Activated Date Inactivated Comments 10/26/2015 6:24 AM 10/28/2015 4:22 PM Care Teams Flight Attendant Relationship Specialty Start Date End Date Jose Bowers MD [address] [place] [id number] PCP - General 12/31/05
--- OUTSIDE RECORDS SUMMARY | 2025-04-29 15:17 | XMS_ITS | Encounter Summary ---
Author Organization [facility] Address [address] [place] [address] Care Team Providers Care Special Class Welder Name Role Phone Jose Bowers MD Primary Care Provider Unavail le Encounter Details Date Type Department Care Team (Late st Contact Info) Description 12/31/2006 Outpatient Historical [facility] OUTPATIENT Jose Bowers MD [address] [place] [address] Pain in Soft Tissues of Limb (Primary Dx) Social History Tobacco Use Types Packs/Day Years Used Date Smoking Tobacco: Never Assessed Comments Unknown Sex and Gender Information Value Date Recorded Sex Assigned at Not on file Legal Sex Female 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
--- OUTSIDE RECORDS SUMMARY | 2025-04-29 15:17 | XMS_ITS | Encounter Summary ---
Author Organization [facility] Address [address] [place] [address] Care Team Providers Care Barge Engineer Name Role Phone Jose Bowers MD Primary Care Provider Unavailab le Encounter Details Date Type Department Care Team (Late st Contact Info) Description 08/30/2006 Outpatient Historical [facility] [place] [address] [place] [phone] Jose Bowers MD [address] [place] [address] Pain in Joint, Pelvic Region and Thigh (Primary Dx); Pain in Limb; Paraplegia (CMS/HCC) Social History Tobacco Use Types Packs/Day Years Used Date Smoking Tobacco: Never Assessed Comments Unknown Sex and Gender Information Value Date Recorded Sex Assigned at Not on file Legal Sex Female 6:28 AM INTERN RETAIL Gender Identity Not on file Sexual Orientation Not on file documented as of this encounter Plan of Treatment Not on file documented as of this encounter Procedures Procedure Name Priority Date/Time Associated Diagnosis Comments XR PELVIS 3+ VW Routine 08/30/2006 12:33 PM INTERN RETAIL documented in this encounter Results * XR PELVIS 3+ VW (08/30/2006 12:33 PM INTERN RETAIL) Anatomical Region Laterality Modality Pelvis Other 08/30/2006 12:3 3 PM INTERN RETAIL Narrative 08/30/2006 12:33 PM INTERN RETAIL PELVIS AND RIGHT HIP: TECHNIQUE: Two views [...] documented as of this encounter Care Teams Barge Engineer Relationship Specialty Start Date End Date Jose Bowers MD [address] [place] [address] PCP - General 12/31/05 documented as of this encounter
--- OUTSIDE RECORDS SUMMARY | 2025-04-29 15:17 | XMS_ITS | Encounter Summary ---
Author Organization [facility] Address [address] [place] [address] Care Team Providers Care Bundle Cutter Name Role Phone Jose Bowers MD Primary Care Provider Unavailab le Encounter Details Date Type Department Care Team (Late st Contact Info) Description 12/31/2006 Outpatient Historical [facility]- [place] [address] [place] [phone] Jose Bowers MD [address] [place] [address] Paraplegia (CMS/HCC) (Primary Dx) Social History Tobacco Use Types Packs/Day Years Used Date Smoking Tobacco: Never Assessed Comments Unknown Sex and Gender Information Value Date Recorded Sex Assigned at Not on file Legal Sex Female 6:28 AM SEAMER OPERATOR Gender Identity Not on file Sexual Orientation Not on file documented as of this encounter Plan of Treatment Not on file documented as of this encounter Visit Diagnoses Diagnosis Paraplegia- Primary documented in this encounter Additional Health Concerns Infection Onset Date Last Indicated Resolved Time MRSA Comment:Kapil 10/26/15 10/27/2015 10/27/2015 documented as of this encounter Care Teams Bundle Cutter Relationship Specialty Start Date End Date Jose Bowers MD [address] [place] [address] PCP - General 12/31/05 documented as of this encounter
--- OUTSIDE RECORDS SUMMARY | 2025-04-29 15:17 | XMS_ITS | Encounter Summary ---
Author Organization [facility] Address [address] [place] [address] Care Team Providers Care Grades 1 Thru 6 Visiting Teacher Name Role Phone Jose Bowers MD Primary Care Provider Unavail le Encounter Details Date Type Department Care Team (Late st Contact Info) Description 11/26/2005 Inpatient Historical [facility] IN BED Jose Bowers MD [address] [place] [address] Other Specified Rehabilitation Procedure (Primary Dx) Social History Tobacco Use Types Packs/Day Years Used Date Smoking Tobacco: Never Assessed Comments Unknown Sex and Gender Information Value Date Recorded Sex Assigned at Not on file Legal Sex Female 6:28 AM POSITIVE PRINTER OPERATOR Gender Identity Not on file Sexual [...] Resul t Performing Organization Address [facility] Phone Number INTERFACE SYSTEM Refer to clinic/hospital department * TSH (11/27/2005 6:09 AM CDT) TSH 1.073 0.350 - 5.500 uIU/ml INTERFACE SYSTEM Comment: As of 04 at 3:00 p.m. [facility] has changed the methodology for TSH, and with this change the reference range has changed from 0.49-4.67 to 0.35-5.5 uIU/ml. 11/27/2005 6:09 AM CDT Jose Bowers MD CHEMISTRY ORDERABLES Final Resul t Performing Organization Address [facility] Phone Number INTERFACE SYSTEM Refer [...] Goal INR 3.0; range 2.5 - 3.5 POST-[place] Goal INR 2.5; range 2.0 - 3.0 or Goal 3.0; range 2.5 - 3.5 Atrial Fibrillation Goal INR 2.5; range 2.0 - 3.0 Ischemic Stroke Goal INR 2.5; range 2.0 - 3.0 For additional information see Guidelines for Anticoagulation available from the pharmacy [facility] 11/27/2005 6:09 AM CDT Jose Bowers MD HEMATOLOGY ORDERABLES Final Resu lt Performing Organization Address City/[facility] Co de Phone Number INTERFACE SYSTEM Refer to clinic/hospital department * (ABNORMAL) C-REACTIVE PROTEIN (11/27/2005 6:09 AM CDT) CRP 1.19(H) 0.00 - 1.00 mg/dL INTERFACE SYSTEM 11/27/2005 6:09 AM CDT Jose Bowers MD CHEMISTRY ORDERABLES Final Resul t Performing Organization Address City/[facility] Co de Phone Number INTERFACE SYSTEM [...] [facility] has changed testing methods. The new reference range is 25-100 The old referance range was 38-126 AST 26 8 - 33 U/L INTERFACE SYSTEM Comment: As of 05 the [facility] has changed testing methods. The new reference range is 8-33 The old referance range was Males 17-59 Females 14-36 ALT 27 4 - 36 IU/L INTERFACE SYSTEM Comment: As of 05 the [facility] has changed testing methods. The new reference range is 4-36 The old referance range was Males 21-72 Females 9-52 BILIRUBIN TOTAL 0.2(L) 0.3 - 1.2 mg/dL INTERFACE SYSTEM Comment: As of 05 the [facility] has changed testing methods. The new reference range is 0.3-1.2 The old referance range was 0.2-1.4 11/27/2005 6:09 AM CDT Jose Bowers MD CHEMISTRY ORDERABLES Final Resul t Performing Organization Address [facility] Phone Number INTERFACE SYSTEM Refer to clinic/hospital department * (ABNORMAL) SEDIMENTATION RATE (11/27/2005 6:09 AM CDT) ESR (SEDIMENTATION RATE) 25(H) 0 - 22 mm/hr INTERFACE SYSTEM 11/27/2005 6:09 AM CDT Jose Bowers MD HEMATOLOGY ORDERABLES Final Resu lt Performing Organization Address [facility] Phone Number INTERFACE SYSTEM Refer [...] Resu lt Performing Organization Address [facility] de Phone Number INTERFACE SYSTEM Refer [...] Final Result Performing Organization Address [facility] de Phone Number INTERFACE SYSTEM Refer [...] URINE ORDERABLES Final Result Performing Organization Address City/State/[facility] Co de Phone Number INTERFACE SYSTEM [...] Limited study. Nonspecific findings present. [facility] D: [id number] Dictated By: Marcus Eng [...] documented as of this encounter Care Teams Grades 1 Thru 6 Visiting Teacher Relationship Specialty Start Date End Date Jose Bowers MD [address] [place] [id number] PCP - General 12/31/05 documented as of this encounter
--- NOTE | 2025-04-29 15:27 | ECG_ITS ---
[facility] Date: 2025-04-29 Pat Name: Jami Gandhi Department: Room: Gender: Female Title One Reading Teacher: : 1970 Requested By: Whitley Deutsch Order Number: [id number] Lynn MD: Pipo Moser M.D. Measurements Intervals [place] Rate: 97 P: 30 IA: 126 QRS: 28 QRSD: 89 T: 34 QT: 303 QTc: 387 Interpretive Statements SINUS RHYTHM Compared to ECG 03/09/2025 08:05:07 No significant changes Electronically Signed On 04-30-2025 15:25:01 CDT by Pipo Moser M.D. [id number] [id number]
[2025-04-29 16:18] LABS: Hematocrit 36.9 % (36-47); Hemoglobin 12.50 g/dL (11.27-16.99); Mean Corpuscular HGB Conc 33.9 g/dL (30-55); Mean Corpuscular Hemoglobin 30.3 pg (27-33); Mean Corpuscular Volume 89.6 fl (85-98); Nucleated Red Blood Cells % 0 %; Platelet Count 491 10^3/cmm (157-399); Red Blood Count 4.12 10^6/uL (3.85-5.65); White Blood Count 12.15 10^3/uL (3.29-11.43)
[2025-04-29 16:25] LABS: INR 1.04 (0.8-1.2); Prothrombin Time 14.30 SECONDS (12.1-14.9)
[2025-04-29 16:26] LABS: Partial Thromboplastin Time 27.9 SECONDS (23.9-36.7)
[2025-04-29 16:29] LABS: Alanine Aminotransferase 50 U/L (0-33); Albumin Level 3.8 g/dL (3.5-5.2); Alkaline Phosphatase 173 U/L (35-105); Calcium 9.3 mg/dL (8.5-10.5); Carbon Dioxide 23 mmol/L (22-29); Chloride 87 mmol/L (98-107); Creatinine Clr Calc Pharmacy 45.0766; Globulin 4.4 g/dL (1.3-4.6); Glucose 140 mg/dL (65-115); Osmolality Calculated 287 mOsm/kg (285-295); Sodium 125 mmol/L (136-145); Total Protein 8.2 g/dL (6.6-8.7)
[2025-04-29 16:33] LABS: Anion Gap 22.2 (5-19)
[2025-04-29 16:34] LABS: Aspartate Amino Transferase 57 U/L (0-32)
[2025-04-29 16:35] LABS: Blood Urea Nitrogen 82 mg/dL (6-20); Potassium 7.2 mmol/L (3.5-5.1)
--- NOTE | 2025-04-29 16:47 | XRR_ITS ---
PROCEDURE INFORMATION: Exam: XR Chest Exam date and time: 04/29/2025 4:53 PM Age: 55 years old Clinical indication: Weakness TECHNIQUE: Imaging protocol: Radiologic exam of the chest. Views: 1 view. COMPARISON: CR (CHEST, ) 04/03/2025 5:27 PM FINDINGS: Tubes, catheters and devices: Right IJ approach central venous catheter with the tip terminating in the right atrium. Lungs: Unremarkable. No consolidation. Pleural spaces: Unremarkable. No pleural effusion. No pneumothorax. Heart/Mediastinum: Unremarkable. No cardiomegaly. Diaphragm: Unchanged elevation of the right hemidiaphragm. Bones/joints: Unremarkable. XR/XR chest 1V portable [id number] IMPRESSION: No acute thoracic abnormality.
[2025-04-29] MEDS: pantoprazole 40 mg SDV 80 MG IVP (16:51)
--- NOTE | 2025-04-29 17:05 | ECG_ITS ---
[facility] Date: 2025-04-29 Pat Name: Jami Gandhi Department: Room: [facility] Gender: Female Director Operating Room: : 1970 Requested By: Whitley Deutsch Order Number: [id number] Lynn MD: Pipo Moser M.D. Measurements Intervals [place] Rate: 93 P: 17 HI: 128 QRS: 13 QRSD: 98 T: 19 QT: 335 QTc: 419 Interpretive Statements SINUS RHYTHM LOW QRS VOLTAGE IN PRECORDIAL LEADS [QRS DEFLECTION < 1.0 mV IN CHEST LEADS] MINIMAL VOLTAGE CRITERIA FOR LVH, CONSIDER NORMAL VARIANT [MEETS CRITERIA IN ONE OF: R(aVL), S(V1), R(V5), R(V5/V6)+S(V1)] Compared to ECG 04/29/2025 15:27:37 Low QRS voltage now present Electronically Signed On 04-30-2025 15:28:52 CDT by Pipo Moser M.D. [id number] [id number]
[2025-04-29 17:44] LABS: ABG PCO2 38.1 mmHg (35-45); ABG PH Result 7.40 (7.35-7.45); Alveolar-Arterial Oxygen Gradi 1.6 mmHg (5-10); Arterial Blood Gas Hematocrit 35.5 % (37-47); Blood Gas Allen Test Pos; Blood Gas Operator Identificat GD; Blood Gas Sample Site Radial, left; Blood Gas Sample Type Arterial; Carboxyhemoglobin 0.8 %THgb (0.4-20.1); Glucose Level-ABG 120.0 mg/dL (70-115); HCO3 ABG 23.4 mmol/L (22-26); Ionized Calcium Level - ABG 1.1 mmol/L (1.1-1.4); Methemoglobin 1.0 % (0.4-1.5); Oxygen Saturation ABG 97.3; PO2 ABG 89.8 mmHg (80.0-100.0); PO2 FiO2 Ratio Arterial Blood 427; Potassium Level - ABG 5.3 mmol/L (3.5-5.0); Sodium Level - ABG 129.0 mmol/L (131-143)
[2025-04-29 18:40] LABS: Lactic Sepsis W/Reflex 1.3 mmol/L (0.5-2.2)
--- NOTE | 2025-04-29 19:13 | PM.HP ---
Providers/Chief Complaint Admitting Physician: Don Ibanez MD Primary Care Provider: Marcus Benosn MD Chief Complaint: hypotensive - gi bleed History of Present Illness As per the previous notes and the patient: Jami Gandhi is a 55 year old female with PMH of necrotizing fasciis, UTI, chronic suprapubic catheter, h/o sacral ulcer and wound, SAVAGE on CPAP, chronic Lymphedema and venous insufficiency, depression, pvd and DVT on chronic anticoagulation and h/o intermitten hematuria requiring holding off anticoagulation referred from the wound care clinic since she was dizzy and having hematuria with fresh bleeding from the her colostomy as well. mild in nature and quantity. She has been on eliquis and it was recently stopped for a procedure but later resumed. there was no easy bruising. the patient also reported chronic fatigue. no fever or chills, or any sob. there has a vague abdominal pain around the colostomy region but no suprapubic pain. her suprapubic cath has been recently changed within a week. no increase in LL swellings or any orthopnea or pND. no syncope, chest pain or any chest pressure like symptoms. no diarrhea. in the ER she was found to have mild increased wbcs and hyperkalemia ( that was reported to be hemolysed as per the assigned nurse) and repeated one is pending. informed the ER physician to address it considering further management. EKG did not show any hyperacute T waves. calcium gluconate with insulin and dextrose to be provided after confirmation. Review of Systems General: Reports: 10 or more systems reviewed and unremarkable except in HPI and below Medications/Allergies Home Medications ?Medication ?Instructions ?Recorded ?Confirmed ?Last Taken ?Type gabapentin 600 mg tablet 600 mg PO BEDTIME 04/12/20 04/29/25 04/28/25 History venlafaxine 150 mg 150 mg PO BEDTIME 04/12/20 04/29/25 04/28/25 History capsule,extended release 24 hr baclofen 20 mg tablet 20 mg PO BEDTIME 02/26/23 04/29/25 04/28/25 History trazodone 50 mg tablet 25 mg PO BEDTIME 09/24/23 04/29/25 04/28/25 History prothrombin time/INR test metr #30 ea 08/24/24 04/29/25 Unknown Rx diphenoxylate-atropine 2.5 2 tab PO QID PRN Diarrhea 02/04/25 04/29/25 03/03/25 History mg-0.025 mg tablet loperamide 2 mg capsule 4 mg PO QID PRN Diarrhea 02/04/25 04/29/25 02/03/25 History omeprazole 40 mg capsule,delayed 40 mg PO DAILY 02/04/25 04/29/25 04/29/25 History release ondansetron 8 mg disintegrating 8 mg PO TID PRN Nausea And Vomiting 02/23/25 04/29/25 Unknown History tablet apixaban 5 mg tablet (Eliquis) 5 mg PO BID 03/04/25 04/29/25 04/29/25 History pantoprazole 40 mg tablet,delayed 40 mg PO BID 03/04/25 04/29/25 03/04/25 History release hydrocodone 7.5 mg-acetaminophen 1 tab PO Q8H PRN pain #20 tabs 04/22/25 04/29/25 Unknown Rx 325 mg tablet ciprofloxacin HCl 250 mg tablet 250 mg PO DAILY 04/29/25 04/29/25 04/29/25 History Allergies Allergy/AdvReac Type Severity Reaction Status Date / Time levofloxacin (From Levaquin) Allergy Unknown Unknown Verified 02/22/25 13:52 azithromycin Allergy Unknown Verified 02/22/25 13:52 Penicillins Allergy Unknown Verified 02/22/25 13:52 tramadol (From Ultram) Allergy Unknown Verified 02/22/25 13:52 vancomycin Allergy Unknown Verified 02/22/25 13:52 amoxicillin AdvReac Unknown ADR-Seizure Verified 02/22/25 13:52 PFSH Acute PFSH: Medical History (Updated 04/29/25 @ 19:33 by Don Ibanez MD) Shock Groin hematoma BMI 50.0-59.9, adult Chronic anticoagulation History of angiography 2015 abdominal angiography and lower extremity angiography - normal abdominal aorta, pelvic vessels normal, all lower extremity vessels unremarkable, 3 vessel runoff below both knees History of cardiovascular stress test 07/2024 abnormalities on myocardial perfusion scanning History of sleep study 05/2017 - cpap auto-titrating 15-19 Wound of sacral region goes to wound care clinic Abscess of sacrum Parastomal hernia Ventral incisional hernia GERD (gastroesophageal reflux disease) Depression Fracture of fifth toe, right, closed History of sleep apnea sleep study in 2017 recommended auto-titrating cpap 15-[address] Complications of surgery for ovarian cyst around 2004 resulting in bowel injury Chronic venous insufficiency of lower extremity PVD (peripheral vascular disease) History of DVT (deep vein thrombosis) (2004) and pulmonary embolism 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 Chronic osteomyelitis Neurogenic bladder Chronic cystitis Surgical History (Updated 04/29/25 @ 17:43 by Whitley Funez MD) History of carpal tunnel release History of abdominal surgery (2007) excision of pelvic cysts complicated by bowel perforation, had multiple procedures including colostomy History of inferior vena caval filter placement (2004) still in place in 08/2024 History of incision and drainage (04/2019) sacral wound History of back surgery (2004) for spinal abscess x 2 History of hysterectomy (2003) S/P cholecystectomy S/P section Suprapubic catheter (~2004) following urology in [place] Family History Family/Other Diabetes Cancer CAD (coronary artery disease) Mother , at age 74 Sepsis Cancer melanoma Diabetes Father Heart disease Other Dementia Diabetes mellitus type 1 Hypertension Stroke Social History Smoking and tobacco/nicotine status: never used tobacco/nicotine Alcohol intake: never Substance/Drug Use: never Additional social history: daughter performs dressing changes twice per day, she and other family provide assistance as needed, wheelchair dependent, able to use transfer board Caregiver/support person: Yes Lives independently: Yes Marital status: Current occupational status: disabled Vitals/I&O/Wt Last Vital Signs Temp 98.5 F 04/29/25 15:00 Pulse 93 04/29/25 17:00 Resp 17 04/29/25 16:51 BP 109/83 04/29/25 17:00 Pulse Ox 100 04/29/25 17:00 O2 Del Method Room Air 04/29/25 17:00 04/29/25 04/29/25 04/29/25 06:59 14:59 22:59 Intake Total 1000 / 1000 Balance 1000 / 1000 Weight last 48 hrs Weight 108.862 kg Physical Exam Narrative: General: Alert and oriented to time place and person, however feels sleepy, unkempt, with chronic lymphedema changes and looks on the dry side HEENT: grossly unremarkable exam Cardio: normal rate rhythm, normal S1-S2 without any murmurs, rubs, or gallops and JVD normal however limited exam due to body habitus Respiratory: Equal air entry without any wheezes or stridor, limited exam due to obese body habitus GI: Abdomen soft, mild tender near the colostomy region but no swelling appreciated, colostomy bag with stools and mild blood, nondistended, normoactive bowel sounds present all 4 quadrants, having suprapubic catheter and having hematuria Neuro: intact cranial nerves motor and sensory and cerebellar/coordination function without any focal neurological deficit Behavior: Appropriate and cooperative Extremities: Adequate palpable pulses, bilateral pedal edema with chronic lymphedema skin thickening Data 04/29/25 15:40 04/29/25 18:49 Micro: Microbiology 04/29/25 15:40 Blood Culture - Preliminary Blood SPECIMEN COLLECTED 04/29/25 15:30 Blood Culture - Preliminary Blood SPECIMEN COLLECTED A&P Assessment and plan 1. Sepsis: considering pt increased wbcs, hematuria, possibility of UTI? vs intra abdominal or soft tissue infection blood and urine cultures, lactate fluid resuscitation wound care maintain MAP >65mmhg neuro checks every shift I/Os. 2. Urinary tract infection: patient having suprapubic catheter, ua not clean catch, to repeat the urine analysis clean catch cont on antibiotics broad spectum with cipro and metro accurate intake and output monitoring 3. RANI (acute kidney injury): pt seems to be on the dehydrated side on clinical exam cont on maintenance fluids monitor renal functions after fluid challenge I/O monitoring 4. Hematuria: recurrent history as well while pt on anticoagulation for DVT Continue to monitor recent CT abd/pelvis on 04/22/25 was reviewed 5. Colostomy complication, unspecified: pt having colostomy bleeding, surgery consult for further management 6. Acute hyperkalemia: pt repeat potassium was 5.8, to give K lowering therapy, fluids, keyxalate and to address bowel motion monitor BMP and correction accordingly 7. Sacral ulcer: wound care cont on antibiotics with cipro and metro 8. Chronic suprapubic catheter: cont maintenance catheter care 9. Abdominal pain, chronic, generalized: adequate analgesia colostomy is working and no signs of obstruction to cover and possible infection with cipro and metro maintain bowel motion every day 10. GERD (gastroesophageal reflux disease): PPI BID considering pt having bleeding from colostomy 11. Depression: reconciled home medications and to continue on trazodone and venlafaxine 12. SAVAGE on CPAP: NIV at night 13. Lymphedema: leg elevation and wound care 14. History of DVT (deep vein thrombosis): pt having recurrent hematuria and bleeding from colostomy, to hold eliquis and to put compression stockings SCDs monitor CBC TID, pt presented with soft BP and therefore to avoid overt bleeding and hypotension, hold anticoagulation meanwhile and to reconsider introducing it once stable hb is established PDMP PDMP Reviewed: Not Reviewed Attestations Medical Necessity Statement*: Jami Gandhi's hospital stay will require greater than 2 midnights for management of UTI, hematuria, bleeding from the colostomy secondary to anticoagulation Time Spent in Patient Care: 16 - 35 minutes (>than 50% of time spent in counselling and/or direct pt care on unit). Critical Care Time: The high probability of a clinically significant, sudden or life threatening deterioration, as referenced in this documentation, required my full and direct attention, intervention and personal management. The critical care time shown is in addition to time spent performing any reported separately billable procedures and includes the following: [x] Data and vital sign review and interpretation [x] Patient assessment, examination and intervention [x] Medication orders and management [x] Patient/Family updates as able [x] Care Coordination and Documentation. Critical Care Time (min): 35 Other Attestations: Patient condition has been discussed at length with the patient/family, I have independently reviewed the chart labs imaging/diagnostics/EKG. the goals of care and code status with the patient/family/NOK/legal authorization representative, and documented accordingly. The patient/family has been informed about the current condition and further plan of care. Agreed with the plan of care and understood without any language barrier. Every effort was made to ensure accuracy of segmental paver installer. Any obvious errors or omissions should be clarified with the author of the document. Coding Level of Care Code Critical Care >/= 30 minutes Diagnoses Sepsis A41.9 Urinary tract infection N39.0 RANI (acute kidney injury) N17.9 Hematuria R31.9 Colostomy complication, unspecified K94.00 Acute hyperkalemia E87.5 Sacral ulcer L98.429 Chronic suprapubic catheter Z93.59 Abdominal pain, chronic, generalized R10.84; G89.29 GERD (gastroesophageal reflux disease) K21.9 Depression F32.A SAVAGE on CPAP G47.33 Lymphedema I89.0 History of DVT (deep vein thrombosis) Z86.718
[2025-04-29 19:20] LABS: Troponin(5th) Baseline 21 ng/L (0-10)
[2025-04-29 19:21] LABS: Blood Urea Nitrogen 76 mg/dL (6-20); Calcium 8.2 mg/dL (8.5-10.5); Carbon Dioxide 21 mmol/L (22-29); Chloride 94 mmol/L (98-107); Creatinine Clr Calc Pharmacy 51.5161; Glucose 107 mg/dL (65-115); Osmolality Calculated 293 mOsm/kg (285-295); Sodium 130 mmol/L (136-145)
[2025-04-29 19:30] LABS: Anion Gap 20.8 (5-19); Potassium 5.8 mmol/L (3.5-5.1)
[2025-04-29] MEDS: calcium gluconate 0.1 gm/mL 10% SDV 10mL 1 GM IVP (20:16)
[2025-04-29] MEDS: insulin regular-human 100 units/1 mL 10 UNIT IVP (20:19)
[2025-04-29 20:54] LABS: Magnesium 2.4 mg/dL (1.7-2.3)
--- NOTE | 2025-04-29 21:14 | ECG_ITS ---
[facility] Date: 2025-04-29 Pat Name: Jami Gandhi Department: Room: [facility] Gender: Female Entry Level Software Developer: : 1970 Requested By: Whitley Deutsch Order Number: [id number] Lynn MD: Pipo Moser M.D. Measurements Intervals [place] Rate: 92 P: 25 AK: 130 QRS: 25 QRSD: 111 T: 33 QT: 328 QTc: 406 Interpretive Statements SINUS RHYTHM LOW QRS VOLTAGE IN PRECORDIAL LEADS [QRS DEFLECTION < 1.0 mV IN CHEST LEADS] MODERATE INTRAVENTRICULAR CONDUCTION DELAY [110+ ms QRS DURATION] Compared to ECG 04/29/2025 18:43:49 Intraventricular conduction delay now present Electronically Signed On 04-30-2025 15:28:20 CDT by Pipo Moser M.D. [email or web address] [id number]
[2025-04-29] MEDS: metroNIDAZOLE IV 500 MG/100 ML PREMIX 100 MG IV (22:50)
--- NOTE | 2025-04-29 23:39 | PC.NURSE ---
contacted to notify of low bp she instructed to hold until BP came up then to give medication spaced out, notified of sacral wound, received VO to draw from central line for labs, but would not draw. Lab notified they will try again. Also, called ER to see if someone could place iv via ultrasound as we have tried. Doctor wants to wait on labs before giving additional kayexalate
[2025-04-30] VITALS (245 sets, daily range): BP systolic 67–142; BP diastolic 39–95; PULSE 84–105; RESP 14–29; TEMP 36.4–36.9; O2SAT 90–100
[2025-04-30 00:34] LABS: Hematocrit 32.9 % (36-47); Hemoglobin 10.50 g/dL (11.27-16.99); Mean Corpuscular HGB Conc 31.9 g/dL (30-55); Mean Corpuscular Hemoglobin 29.7 pg (27-33); Mean Corpuscular Volume 93.2 fl (85-98); Nucleated Red Blood Cells % 0 %; Platelet Count 329 10^3/cmm (157-399); Red Blood Count 3.53 10^6/uL (3.85-5.65); White Blood Count 10.99 10^3/uL (3.29-11.43)
[2025-04-30 00:42] LABS: Glucose Urine UA Negative (Normal); Nitrate Urine Negative (Negative); Specific Gravity, Urine 1.020 (1.005-1.030)
[2025-04-30] MEDS: venlafaxine ER (24HR) 150 mg Capsule PO ×2 (00:43→20:20)
[2025-04-30 00:47] LABS: Add Urine Microscopic? YES
[2025-04-30 01:11] LABS: UA Slide Review UA Slide Review Perf
--- NOTE | 2025-04-30 01:43 | PC.NURSE ---
administered 300mg gabapentin as patient refused 600 mg reporting that her dose was decreased from 600 [address] Burrell notified wasted 300 mg gabapentin with Marian DILLARD
--- NOTE | 2025-04-30 02:56 | PC.NURSE ---
Notified Dr. Arnett that we are unable to get labs
[2025-04-30 04:44] LABS: Troponin(5th) Baseline 23 ng/L (0-10)
[2025-04-30 04:45] LABS: Anion Gap 21.0 (5-19); Blood Urea Nitrogen 74 mg/dL (6-20); Calcium 8.5 mg/dL (8.5-10.5); Carbon Dioxide 22 mmol/L (22-29); Chloride 90 mmol/L (98-107); Creatinine Clr Calc Pharmacy 60.1021; Glucose 131 mg/dL (65-115); Osmolality Calculated 290 mOsm/kg (285-295); Potassium 5.0 mmol/L (3.5-5.1); Sodium 128 mmol/L (136-145)
[2025-04-30 04:51] LABS: ABG PCO2 31.8 mmHg (35-45); ABG PH Result 7.50 (7.35-7.45); Arterial Blood Gas Hematocrit 33.2 % (37-47); Blood Gas Operator Identificat JDB; Blood Gas Sample Site Brachial, left; Blood Gas Sample Type Arterial; HCO3 ABG 24.6 mmol/L (22-26); PO2 ABG 99.8 mmHg (80.0-100.0); PO2 FiO2 Ratio Arterial Blood 475
--- NOTE | 2025-04-30 05:10 | ECG_ITS ---
[facility] 2025-04[facility]30 Pat Name: Jami Gandhi Department: Room: [facility] Gender: Female Applications Systems Engineer: JOSE: 1970 Requested By: Don Ibanez Order Number: [id number] Lynn MD: Pipo Moser M.D. Measurements Intervals [place] Rate: 90 P: 28 TX: 128 QRS: 19 QRSD: 98 T: 34 QT: 346 QTc: 425 Interpretive Statements SINUS RHYTHM LOW QRS VOLTAGE IN PRECORDIAL LEADS [QRS DEFLECTION < 1.0 mV IN CHEST LEADS] MINIMAL VOLTAGE CRITERIA FOR LVH, CONSIDER NORMAL VARIANT [MEETS CRITERIA IN ONE OF: R(aVL), S(V1), R(V5), R(V5/V6)+S(V1)] Compared to ECG 04/29/2025 21:14:56 Intraventricular conduction delay no longer present Electronically Signed On 04-30-2025 15:27:44 CDT by Pipo Moser M.D. [email or web address]
[2025-04-30 06:26] LABS: Hematocrit 33.8 % (36-47); Hemoglobin 10.50 g/dL (11.27-16.99); Mean Corpuscular HGB Conc 31.1 g/dL (30-55); Mean Corpuscular Hemoglobin 29.6 pg (27-33); Mean Corpuscular Volume 95.2 fl (85-98); Nucleated Red Blood Cells % 0 %; Platelet Count 329 10^3/cmm (157-399); Red Blood Count 3.55 10^6/uL (3.85-5.65); White Blood Count 8.36 10^3/uL (3.29-11.43)
[2025-04-30] MEDS: metroNIDAZOLE IV 500 MG/100 ML PREMIX 100 MG IV ×2 (06:30→14:27)
[2025-04-30 06:42] LABS: Troponin 5 2HR 22.10 ng/L (0-10)
[2025-04-30 06:44] LABS: Troponin 5 2HR Delta -0.90 ABS# (0-10)
[2025-04-30 06:50] LABS: Alanine Aminotransferase 38 U/L (0-33); Albumin Level 2.9 g/dL (3.5-5.2); Alkaline Phosphatase 133 U/L (35-105); Anion Gap 19.9 (5-19); Aspartate Amino Transferase 36 U/L (0-32); Blood Urea Nitrogen 75 mg/dL (6-20); Calcium 8.7 mg/dL (8.5-10.5); Carbon Dioxide 21 mmol/L (22-29); Chloride 89 mmol/L (98-107); Creatinine Clr Calc Pharmacy 55.4788; Globulin 3.7 g/dL (1.3-4.6); Glucose 128 mg/dL (65-115); Osmolality Calculated 284 mOsm/kg (285-295); Potassium 4.9 mmol/L (3.5-5.1); Sodium 125 mmol/L (136-145); Total Protein 6.6 g/dL (6.6-8.7)
[2025-04-30] MEDS: HYDROcodone-acetaminophen 7.5-325 mg Tablet 1 TAB PO ×2 (08:46→23:39)
[2025-04-30 10:28] LABS: Troponin 5 6HR 19.29 ng/L (0-10)
[2025-04-30 10:29] LABS: Troponin 5 6HR Delta -3.71 ng/L (0-12)
--- NOTE | 2025-04-30 10:53 | PC.SOCIAL ---
IMM Update pg 2 of IMM Updated and reviewed w/ patient. Copy provided and copy dated, initialed and placed in chart.
[2025-04-30] MEDS: heparin 5,000 unit/mL INJ 1 mL 5000 UNIT SUBCUT (14:26)
--- NOTE | 2025-04-30 17:21 | P.TS_ITS ---
Transfer Summary Providers Date of Admission: 04/29/25 17:06 Date of Discharge/Transfer: 04/30/25 Attending Provider at Admission: Don Ibanez MD Attending Provider at Transfer: Don Ibanez MD Primary Care Provider: Marcus Benson MD Transfer Plans: Anticipated date of transfer: 04/30/25 . Diagnoses at Discharge Discharge Diagnosis 1. Sepsis: 2. Urinary tract infection: 3. RANI (acute kidney injury): 4. Hematuria: 5. Colostomy complication, unspecified: 6. Acute hyperkalemia: 7. Sacral ulcer: 8. Chronic suprapubic catheter: 9. Abdominal pain, chronic, generalized: 10. Gastroesophageal reflux disease without esophagitis: 11. Other depression: 12. SAVAGE on CPAP: 13. Lymphedema: 14. History of DVT (deep vein thrombosis): Reason for Visit Reason for Visit hypotensive - gi bleed Brief History: As per the previous notes and the patient: Jami Gandhi is a 55 year old female with PMH of necrotizing fasciis, UTI, chronic suprapubic catheter, h/o sacral ulcer and wound, SAVAGE on CPAP, chronic Lymphedema and venous insufficiency, depression, pvd and DVT on chronic an ticoagulation and h/o intermitten hematuria requiring holding off anticoagulation referred from the wound care clinic since she was dizzy and having hematuria with fresh bleeding from the her colostomy as well. mild in nature and quantity. She has been on eliquis and it was recently stopped for a procedure but later resumed. there was no easy bruising. the patient also reported chronic fatigue. no fever or chills, or any sob. there has a vague abdominal pain around the colostomy region but no suprapubic pain. her suprapubic cath has been recently changed within a week. no increase in LL swellings or any orthopnea or pND. no syncope, chest pain or any chest pressure like symptoms. no diarrhea. in the ER she was found to have mild increased wbcs and hyperkalemia ( that was reported to be hemolysed as per the assigned nurse) and repeated one is pending. informed the ER physician to address it considering further management. EKG did not show any hyperacute T waves. calcium gluconate with insulin and dextrose to be provided after confirmation. Hospital Course Hospital Course During her hospital stay the patient was given fluid resuscitation, and was started on broad-spectrum antibiotics considering possibility of UTI or intra- abdominal source of infection as she was having abdominal pain. The patient stabilized however she was having bleeding from her colostomy site and mild hematuria that required to hold her anticoagulation for DVT. She was also found to have acute hyperkalemia which on repeat was 5.8 and further potassium lowering therapies were provided that further help to lower her potassium. Her chronic suprapubic catheter was changed recently therefore adequate catheter care was provided. She was having features of acute kidney injury which was likely to dehydration therefore was started on maintenance fluids with further intake and output monitoring with adequate output through her suprapubic catheter. She was kept on Cipro and Metro with further cultures awaited. During her hospital stay she remained stable and all her condition was discussed with her and the son. Since the patient had bleeding from the colostomy and requires GI versus surgery evaluation therefore Trudy Lopez was contacted and was accepted under hospitalist for transfer under Dr. Ramsey. Patient condition has been discussed at length with the patient/family, I have independently reviewed the chart labs imaging/diagnostics/EKG. the goals of care and code status with the patient/family/NOK/legal roofing sales representative, and documented accordingly. The patient/family has been informed about the current condition and further plan of care. Agreed with the plan of care and understood without any language barrier. Every effort was made to ensure accuracy of beef cattle grazier. Any obvious errors or omissions should be clarified with the author of the document. Physical Exam Narrative: General: Alert and oriented to time place and person, however feels sleepy, unkempt, with chronic lymphedema changes and looks on the dry side HEENT: grossly unremarkable exam Cardio: normal rate rhythm, normal S1-S2 without any murmurs, rubs, or gallops and JVD normal however limited exam due to body habitus Respiratory: Equal air entry without any wheezes or stridor, limited exam due to obese body habitus GI: Abdomen soft, mild tender near the colostomy region but no swelling appreciated, colostomy bag with stools mixed with serosanguineous/blood discharge, nondistended, normoactive bowel sounds present all 4 quadrants, having suprapubic catheter and having hematuria Neuro: intact cranial nerves motor and sensory and cerebellar/coordination function without any focal neurological deficit Behavior: Appropriate and cooperative Extremities: Adequate palpable pulses, bilateral pedal edema with chronic lymphedema skin thickening TS Data Studies Completed and Pending Pending at discharge Category Date Time Status Blood Culture Stat Lab 04/29/25 15:40 Results Urine Culture Routine Lab 04/30/25 00:20 Received Urine Culture Stat Lab 04/29/25 15:21 Received Completed Studies During Hospitalization Category Date Time Status XR chest 1V portable [id number] Stat Exams 04/29/25 16:47 Completed [place] liver [id number] Routine Ultrasound 04/30/25 23:38 Completed Laboratory Last Values WBC 8.36 10^3/uL (3.29-11.43) 04/30/25 06:18 RBC 3.55 10^6/uL (3.85-5.65) L 04/30/25 06:18 Hgb 10.50 g/dL (11.27-16.99) L 04/30/25 06:18 Hct 33.8 % (36-47) L 04/30/25 06:18 MCV 95.2 fl (85-98) 04/30/25 06:18 MCH 29.6 pg (27-33) 04/30/25 06:18 MCHC 31.1 g/dL (30-55) 04/30/25 06:18 RDW 13.3 % (12.1-15.1) 04/30/25 06:18 Plt Count 329 10^3/cmm (157-399) 04/30/25 06:18 MPV 11.0 fL (7.4-10.4) H 04/30/25 06:18 Neut % (Auto) 72.9 % 04/30/25 06:18 Lymph % (Auto) 14.8 % 04/30/25 06:18 Daggett % (Auto) 10.6 % 04/30/25 06:18 Eos % (Auto) 1.1 % 04/30/25 06:18 Baso % (Auto) 0.1 % 04/30/25 06:18 Neut # (Auto) 6.09 10^3/uL (1.8-7.7) 04/30/25 06:18 Lymph # (Auto) 1.2 10^3/uL (0.8-4.8) 04/30/25 06:18 Daggett # (Auto) 0.9 10^3/uL (0.2-0.9) 04/30/25 06:18 Eos # (Auto) 0.1 10^3/uL (0.0-0.8) 04/30/25 06:18 Baso # (Auto) 0.0 10^3/uL (0.0-0.1) 04/30/25 06:18 Nucleated RBC % (auto) 0 % 04/30/25 06:18 Nucleated RBCs # 0.0 /100WBC 04/30/25 06:18 PT 14.30 SECONDS (12.1-14.9) 04/29/25 15:40 INR 1.04 (0.8-1.2) 04/29/25 15:40 APTT 27.9 SECONDS (23.9-36.7) 04/29/25 15:40 Specimen Type Arterial 04/30/25 04:38 Sample Site Brachial, left 04/30/25 04:38 ABG pH 7.50 (7.35-7.45) H 04/30/25 04:38 ABG pCO2 31.8 mmHg (35-45) L 04/30/25 04:38 ABG pO2 99.8 mmHg (80.0-100.0) 04/30/25 04:38 ABG PO2/FiO2 Ratio 475 04/30/25 04:38 ABG HCO3 24.6 mmol/L (22-26) 04/30/25 04:38 ABG O2 Saturation 97.3 04/29/25 17:28 ABG Base Excess 1.7 mmol/L (-2.0-2.0) 04/30/25 04:38 Juan Test N/a 04/30/25 04:38 A-a O2 Gradient 1.6 mmHg (5-10) L 04/29/25 17:28 Hematocrit 33.2 % (37-47) L 04/30/25 04:38 Hgb O2 Saturation 95.6 % (95-100) 04/29/25 17:28 Carboxyhemoglobin 0.8 %THgb (0.4-20.1) 04/29/25 17:28 Methemoglobin 1.0 % (0.4-1.5) 04/29/25 17:28 Total Hemoglobin 11.6 g/dL (12-16) L 04/29/25 17:28 Sodium 129.0 mmol/L (131-143) L 04/29/25 17:28 Potassium 5.3 mmol/L (3.5-5.0) H 04/29/25 17:28 Glucose 120.0 mg/dL (70-115) H 04/29/25 17:28 Ionized Calcium 1.1 mmol/L (1.1-1.4) 04/29/25 17:28 O2 Delivery Device Room air 04/30/25 04:38 FiO2 21.0 % 04/30/25 04:38 Plastic Tile Layer ID Jdb 04/30/25 04:38 Sodium 125 mmol/L (136-145) L 04/30/25 06:18 Potassium 4.9 mmol/L (3.5-5.1) 04/30/25 06:18 Chloride 89 mmol/L (98-107) L 04/30/25 06:18 Carbon Dioxide 21 mmol/L (22-29) L 04/30/25 06:18 Anion Gap 19.9 (5-19) H 04/30/25 06:18 BUN 75 mg/dL (6-20) H 04/30/25 06:18 Creatinine 1.3 mg/dL (0.5-0.9) H 04/30/25 06:18 GFR Calculation 42.2 mL/min (90-130) L 04/30/25 06:18 Glucose 128 mg/dL (65-115) H 04/30/25 06:18 POC Glucose 147 mg/dL (70-110) H 04/29/25 21:27 Calculated Osmolality 284 mOsm/kg (285-295) L 04/30/25 06:18 Lactic Acid 1.3 mmol/L (0.5-2.2) 04/29/25 17:55 Calcium 8.7 mg/dL (8.5-10.5) 04/30/25 06:18 Magnesium 2.4 mg/dL (1.7-2.3) H 04/29/25 18:44 Total Bilirubin 0.2 mg/dL (0.15-1.2) 04/30/25 06:18 AST 36 U/L (0-32) H 04/30/25 06:18 ALT 38 U/L (0-33) H 04/30/25 06:18 Alkaline Phosphatase 133 U/L (35-105) H 04/30/25 06:18 Troponin T Baseline 23 ng/L (0-10) H 04/30/25 04:18 Troponin T 120 Minute 22.10 ng/L (0-10) H 04/30/25 06:18 Delta Troponin T -0.90 ABS# (0-10) L 04/30/25 06:18 Troponin T Hi Sens 6Hr 19.29 ng/L (0-10) H 04/30/25 10:02 Troponin T Hi Sens 6Hr Delta -3.71 ng/L (0-12) L 04/30/25 10:02 C-Reactive Protein 60.9 mg/L (0.0-4.9) H 04/29/25 15:40 Total Protein 6.6 g/dL (6.6-8.7) 04/30/25 06:18 Albumin 2.9 g/dL (3.5-5.2) L 04/30/25 06:18 Globulin 3.7 g/dL (1.3-4.6) 04/30/25 06:18 Urine Color Red (Yellow) A 04/30/25 00:20 Urine Appearance Turbid (CLEAR) A 04/30/25 00:20 Urine pH >=9.0 (5-7) A 04/30/25 00:20 Ur Specific Beccaria 1.020 (1.005-1.030) 04/30/25 00:20 Urine Protein 3+ (Negative) A 04/30/25 00:20 Urine Glucose (UA) Negative (Normal) 04/30/25 00:20 Urine Ketones Negative (Negative) 04/30/25 00:20 Urine Blood 3+ (Negative) A 04/30/25 00:20 Urine Nitrate Negative (Negative) 04/30/25 00:20 Urine Bilirubin 1+ (Negative) H 04/30/25 00:20 Urine Urobilinogen 0.2 mg/dL (Negative) 04/30/25 00:20 Ur Leukocyte Esterase 3+ (Negative) A 04/30/25 00:20 Urine RBC >100 /hpf (0-2) H 04/30/25 00:20 Urine WBC 21-50 /hpf (0-5) H 04/30/25 00:20 Ur Squamous Epith Cells 0-5 /hpf (0-5) 04/30/25 00:20 Amorphous Sediment Not Reportable 04/30/25 00:20 Urine Bacteria 4+ /hpf (NONE) H 04/30/25 00:20 Hyaline Casts 20.24 /lpf 04/30/25 00:20 Urine Mucus 1+ /hpf 04/29/25 15:21 Blood Type O Negative 04/29/25 17:55 Rho(D) Type Rh negative 04/29/25 17:55 Antibody Screen Negative 04/29/25 17:55 Radiology Impressions Chest X-Ray 04/29/25 16:47 IMPRESSION: No acute thoracic abnormality. Liver Ultrasound 04/30/25 23:38 IMPRESSION: 1. Prior cholecystectomy. 2. Normal size liver with coarse echotexture from hepatocellular disease. 3. Normal common bile duct. 4. Mild cortical thinning RIGHT kidney with central nonobstructing calcifications. Recent Clincial Data Last Vital Signs Temp 97.6 F 04/30/25 16:05 Pulse 88 04/30/25 16:25 Resp 21 H 04/30/25 16:25 BP 113/61 04/30/25 16:25 Pulse Ox 97 04/30/25 16:10 O2 Del Method Room Air 04/30/25 00:00 Vital Signs Temp Pulse Resp BP Pulse Ox 04/30/25 16:25 88 21 H 113/61 04/30/25 16:20 90 17 113/61 04/30/25 16:15 90 19 H 117/55 04/30/25 16:10 92 21 H 117/55 97 04/30/25 16:05 97.6 F 89 19 H 117/55 04/30/25 16:00 88 25 H 116/51 04/30/25 15:55 88 23 H 116/51 04/30/25 15:50 87 22 H 116/51 04/30/25 15:45 89 22 H 102/57 04/30/25 15:40 88 23 H 102/57 04/30/25 15:35 88 24 H 102/57 97 04/30/25 15:30 87 16 94/69 04/30/25 15:25 90 24 H 94/69 04/30/25 15:20 89 23 H 94/69 04/30/25 15:15 86 20 H 110/46 04/30/25 15:10 86 20 H 110/46 04/30/25 15:05 87 25 H 110/46 04/30/25 15:00 86 21 H 91/39 04/30/25 14:55 91 24 H 91/39 04/30/25 14:50 87 24 H 97/60 95 04/30/25 14:45 87 19 H 112/62 04/30/25 14:40 87 16 112/62 04/30/25 14:35 86 21 H 112/62 04/30/25 14:30 87 23 H 109/58 04/30/25 14:25 88 23 H 109/58 04/30/25 14:20 87 21 H 109/58 04/30/25 14:15 85 24 H 101/55 90 04/30/25 14:10 87 24 H 101/55 04/30/25 14:05 87 26 H 101/55 94 04/30/25 14:00 86 20 H 04/30/25 13:58 84 15 93 04/30/25 13:56 87 04/30/25 13:30 86 23 H 04/30/25 13:25 87 23 H 04/30/25 13:20 87 18 04/30/25 13:15 88 20 H 04/30/25 13:10 88 19 H 04/30/25 13:05 89 20 H 04/30/25 13:00 91 17 04/30/25 12:55 88 19 H 04/30/25 12:50 89 17 04/30/25 12:45 90 16 103/66 04/30/25 12:40 89 20 H 103/66 04/30/25 12:35 92 19 H 103/66 04/30/25 12:30 91 20 H 101/60 04/30/25 12:25 92 18 101/60 04/30/25 12:20 92 18 101/60 04/30/25 12:15 93 16 107/85 04/30/25 12:10 95 20 H 107/85 04/30/25 12:05 99 18 107/85 04/30/25 12:00 98.3 F 102 H 20 H 105/62 04/30/25 11:55 104 H 23 H 105/62 04/30/25 11:50 95 17 105/62 04/30/25 11:45 95 16 99/53 04/30/25 11:40 93 17 99/53 04/30/25 11:35 92 19 H 99/53 04/30/25 11:30 92 23 H 100/66 04/30/25 11:25 92 21 H 100/66 04/30/25 11:20 93 18 100/66 04/30/25 11:15 95 18 98/60 04/30/25 11:10 91 17 98/60 04/30/25 11:05 91 23 H 98/60 04/30/25 11:00 91 24 H 96/62 04/30/25 10:55 91 20 H 96/62 04/30/25 10:50 91 21 H 96/62 04/30/25 10:45 89 23 H 96/62 04/30/25 10:40 89 23 H 91/57 04/30/25 10:35 91 21 H 91/57 04/30/25 10:30 90 23 H 93/71 04/30/25 10:25 89 23 H 93/71 04/30/25 10:20 89 22 H 93/71 04/30/25 10:15 90 24 H 89/56 04/30/25 10:10 91 24 H 89/56 04/30/25 10:05 90 27 H 89/56 04/30/25 10:00 89 27 H 123/69 04/30/25 09:55 91 25 H 123/69 04/30/25 09:50 91 23 H 123/69 04/30/25 09:45 89 24 H 126/73 04/30/25 09:40 88 27 H 126/73 04/30/25 09:35 90 26 H 126/73 04/30/25 09:30 93 18 122/44 04/30/25 09:25 90 26 H 122/44 04/30/25 09:20 91 20 H 122/44 04/30/25 09:15 94 19 H 109/67 04/30/25 09:10 91 19 H 109/67 04/30/25 09:05 90 23 H 109/67 04/30/25 09:00 91 21 H 109/77 04/30/25 08:55 90 17 109/77 04/30/25 08:50 90 20 H 109/77 04/30/25 08:45 91 15 109/77 04/30/25 08:40 91 20 H 109/77 04/30/25 08:35 88 17 109/77 04/30/25 08:30 91 19 H 116/56 04/30/25 08:25 93 24 H 116/56 04/30/25 08:20 92 22 H 116/56 04/30/25 08:15 95 26 H 95/49 04/30/25 08:10 93 20 H 95/49 04/30/25 08:05 98.5 F 101 H 19 H 95/49 04/30/25 08:00 93 17 96/68 98 04/30/25 07:55 90 18 96/68 97 04/30/25 07:50 92 18 96/68 94 04/30/25 07:45 91 17 96/55 96 04/30/25 07:40 94 24 H 96/55 98 04/30/25 07:35 91 21 H 96/55 97 04/30/25 07:30 93 21 H 96/55 98 04/30/25 07:25 91 21 H 103/70 98 04/30/25 07:20 93 18 103/70 99 04/30/25 07:15 91 23 H 105/63 98 04/30/25 07:10 90 24 H 105/63 98 04/30/25 07:05 92 20 H 105/63 100 04/30/25 07:00 91 24 H 98/60 99 04/30/25 06:55 90 18 98/60 99 04/30/25 06:50 89 23 H 98/60 95 04/30/25 06:45 95 18 89/58 96 04/30/25 06:40 90 20 H 89/58 98 04/30/25 06:35 90 19 H 86/58 98 04/30/25 06:30 90 20 H 99/65 99 04/30/25 06:25 90 16 99/65 96 04/30/25 06:20 92 22 H 99/65 99 04/30/25 06:15 97 18 84/56 94 04/30/25 06:10 91 21 H 84/56 99 04/30/25 06:05 91 20 H 84/56 98 04/30/25 06:00 90 04/30/25 06:00 90 22 H 103/59 100 04/30/25 05:55 91 22 H 103/59 98 04/30/25 05:50 90 20 H 103/59 98 04/30/25 05:45 94 22 H 87/54 97 04/30/25 05:40 92 21 H 87/54 99 04/30/25 05:35 95 19 H 87/54 94 04/30/25 05:30 90 20 H 87/54 97 04/30/25 05:25 93 25 H 87/54 99 Intake & Output/Weight 04/28/25 04/29/25 04/30/25 05/01/25 06:59 06:59 06:59 06:59 Intake Total 1300 / 1300 1843.333 / 1843.333 Output Total 2450 / 2450 Balance -1150 / -1150 1843.333 / 1843.333 Weight 108.862 kg Vitals Last Vital Signs Temp 97.6 F 04/30/25 16:05 Pulse 88 04/30/25 16:25 Resp 21 H 04/30/25 16:25 BP 113/61 04/30/25 16:25 Pulse Ox 97 04/30/25 16:10 O2 Del Method Room Air 04/30/25 00:00 TS Medications Medications Acetaminophen (Acetaminophen 325 Mg Tablet) 650 mg PO Q6H PRN PRN Reason: MILD PAIN Hydrocodone Bitart/Acetaminophen (Hydrocodone-Acetaminophen 7.5-325 Mg Tablet) 1 tab PO Q8H PRN PRN Reason: PAIN Last Admin: 04/30/25 08:46 Dose: 1 tab Baclofen (Baclofen 10 Mg Tablet) 20 mg PO BEDTIME CARLOS Last Admin: 04/29/25 23:35 Dose: 20 mg Gabapentin (Gabapentin 300 Mg Capsule) 600 mg PO BEDTIME CARLOS Last Admin: 04/30/25 01:40 Dose: 600 mg Heparin Sodium (Porcine) (Heparin 5,000 Unit/Ml Inj 1 Ml) 5,000 unit SUBCUT Q12H CARLOS Last Admin: 04/30/25 14:26 Dose: 5,000 unit Sodium Chloride (Sodium Chloride 0.9%) 1,000 mls @ 100 mls/hr IV .Q10H CARLOS Last Admin: 04/30/25 09:46 Dose: 100 mls/hr Ciprofloxacin/Dextrose (Cipro) 400 mg in 200 mls @ 200 mls/hr IV Q12H CARLOS; Protocol Last Infusion: 04/30/25 09:06 Dose: Infused Metronidazole (Flagyl Iv) 500 mg in 100 mls @ 100 mls/hr IV Q8H CARLOS; Protocol Last Infusion: 04/30/25 15:36 Dose: Infused Ondansetron HCl (Ondansetron 2 Mg/Ml Sdv 2 Ml) 4 mg IVP Q6H PRN PRN Reason: NAUSEA AND VOMITING Pantoprazole Sodium (Pantoprazole 40 Mg Sdv) 40 mg IVP ONCE CARLOS Trazodone HCl (Trazodone 50 Mg Tablet) 25 mg PO BEDTIME CARLOS Last Admin: 04/30/25 00:46 Dose: Not Given Venlafaxine HCl (Venlafaxine Er (24hr) 150 Mg Capsule) 150 mg PO BEDTIME CARLOS Last Admin: 04/30/25 00:43 Dose: 150 mg Discontinued Medications Albuterol Sulfate (Albuterol 2.5 Mg/0.5 Ml Neb) 2.5 mg INHALATION Q20M REPLACED BY [facility] Stop: 04/29/25 20:26 Last Admin: 04/29/25 21:46 Dose: 2.5 mg Calcium Gluconate (Calcium Gluconate 0.1 Gm/Ml 10% Sdv 10ml) 1 gm IVP ONCE ONE Stop: 04/29/25 16:40 Last Admin: 04/29/25 20:16 Dose: 1 gm Sodium Chloride (Sodium Chloride 0.9%) 1,000 mls @ 999 mls/hr IV .Q1H1M ONE Stop: 04/29/25 16:04 Last Infusion: 04/29/25 16:45 Dose: Infused Dextrose (D10w) 250 mls @ 1,000 mls/hr IV PRN PRN PRN Reason: HYPOGLYCEMIA Last Infusion: 04/30/25 07:49 Dose: Infused Lactated Ringer's (Lactated Ringers) 1,000 mls @ 75 mls/hr IV .[id number] CARLOS Stop: 04/30/25 05:44 Last Admin: 04/29/25 22:51 Dose: 75 mls/hr Ciprofloxacin/Dextrose (Cipro) 400 mg in 200 mls @ 200 mls/hr IV Q12H CARLOS; Protocol Last Infusion: 04/29/25 22:52 Dose: Infused Metronidazole (Flagyl Iv) 500 mg in 100 mls @ 100 mls/hr IV Q8H CARLOS; Protocol Last Infusion: 04/30/25 00:33 Dose: Infused Insulin Human Regular (Insulin Regular-Human 100 Units/1 Ml) 10 unit IVP ONCE ONE Stop: 04/29/25 16:40 Last Admin: 04/29/25 20:19 Dose: 10 unit Meropenem (Meropenem 500 Mg Sdv) 500 mg IVP ONCE ONE; Protocol Stop: 04/29/25 15:59 Last Admin: 04/29/25 16:46 Dose: 500 mg Pantoprazole Sodium (Pantoprazole 40 Mg Sdv) 80 mg IVP ONCE ONE Stop: 04/29/25 15:59 Last Admin: 04/29/25 16:51 Dose: 80 mg Senna (Sennosides 8.6 Mg Tablet) 8.6 mg PO ONCE ONE Stop: 04/29/25 19:36 Last Admin: 04/29/25 21:25 Dose: Not Given Sodium Polystyrene Sulfonate (Sodium Polystyrene Sulfonate 15 Gm/60 Ml Btl) 15 gm PO ONCE ONE Stop: 04/29/25 16:40 Last Admin: 04/29/25 20:19 Dose: 15 gm Sodium Polystyrene Sulfonate (Sodium Polystyrene Sulfonate 15 Gm/60 Ml Btl) 15 gm PO ONCE ONE Stop: 04/29/25 19:35 Last Admin: 04/29/25 22:37 Dose: Not Given Allergies levofloxacin (From Levaquin) Allergy (Unknown, Verified 02/22/25 13:52) Unknown azithromycin Allergy (Verified 02/22/25 13:52) Unknown Penicillins Allergy (Verified 02/22/25 13:52) Unknown tramadol (From Ultram) Allergy (Verified 02/22/25 13:52) Unknown vancomycin Allergy (Verified 02/22/25 13:52) Unknown amoxicillin Adverse Reaction (Unknown, Verified 02/22/25 13:52) ADR-Seizure when she was an infant Home Medications gabapentin 600 mg tablet 600 mg PO BEDTIME 04/12/20 [History Confirmed 04/29/25] venlafaxine 150 mg capsule,extended release 24 hr 150 mg PO BEDTIME 04/12/20 [History Confirmed 04/29/25] baclofen 20 mg tablet 20 mg PO BEDTIME 02/26/23 [History Confirmed 04/29/25] trazodone 50 mg tablet 25 mg PO BEDTIME 09/24/23 [History Confirmed 04/29/25] prothrombin time/INR test metr #30 ea 08/24/24 [Rx Confirmed 04/29/25] diphenoxylate-atropine 2.5 mg-0.025 mg tablet 2 tab PO QID PRN Diarrhea 02/04/25 [History Confirmed 04/29/25] loperamide 2 mg capsule 4 mg PO QID PRN Diarrhea 02/04/25 [History Confirmed 04/29/25] omeprazole 40 mg capsule,delayed release 40 mg PO DAILY 02/04/25 [History Confirmed 04/29/25] ondansetron 8 mg disintegrating tablet 8 mg PO TID PRN Nausea And Vomiting 02/23/25 [History Confirmed 04/29/25] apixaban 5 mg tablet (Eliquis) 5 mg PO BID 03/04/25 [History Confirmed 04/29/25] pantoprazole 40 mg tablet,delayed release 40 mg PO BID 03/04/25 [History Confirmed 04/29/25] hydrocodone 7.5 mg-acetaminophen 325 mg tablet 1 tab PO Q8H PRN pain #20 tabs 04/22/25 [Rx Confirmed 04/29/25] ciprofloxacin HCl 250 mg tablet 250 mg PO DAILY 04/29/25 [History Confirmed 04/29/25] Discharge Plan Discharge Patient Disposition: Xfer Other Condition: Stable Prescriptions: No Action gabapentin 600 mg tablet 600 mg PO BEDTIME venlafaxine 150 mg capsule,extended release 24hr 150 mg PO BEDTIME trazodone 50 mg tablet 25 mg PO BEDTIME (DME) prothrombin time/INR test metr Misc See Rx Instructions .Route Qty: 30 0RF Rx Instructions: As directed- INR strips loperamide 2 mg capsule 4 mg PO QID PRN (Reason: Diarrhea) diphenoxylate-atropine 2.5-0.025 mg tablet 2 tab PO QID PRN (Reason: Diarrhea) omeprazole 40 mg capsule,delayed release(DR/EC) 40 mg PO DAILY ondansetron 8 mg tablet,disintegrating 8 mg PO TID PRN (Reason: Nausea And Vomiting) ciprofloxacin HCl 250 mg tablet 250 mg PO DAILY baclofen 20 mg tablet 20 mg PO BEDTIME pantoprazole 40 mg tablet,delayed release (DR/EC) 40 mg PO BID Eliquis 5 mg tablet 5 mg PO BID hydrocodone-acetaminophen 7.5-325 mg tablet 1 tab PO Q8H PRN (Reason: pain) Qty: 20 0RF Referrals: Marcus Benson MD [Primary Care Provider, Family Practice] Discharge Diet: Advance as tolerated and As Directed Discharge Activity: Increase activity as tolerated and Limit activity as instructed Patient Instructions: Opioid Safety, Patient Portal & Jodie Instructions Transfer Attestations Time Spent in Transfer Care: critical care time Critical Care Time (min): 35 Specific Discharge Activities: educating patient, educating and/or supporting family/caregiver, discussing with pcp/other providers, discussing with comp field case manager/social workers/dc planners, documenting/other paperwork and evaluating patient/reviewing data Status at Transfer: Cognitive status at transfer: cognitively intact ; Behavioral status at transfer: cooperative ; Functional status at transfer: other assisted ambulation ; Overall status at transfer: patient is progressing back to baseline Quality Metrics Clinical Quality Measures [ No reported AMI, CVA or VTE this stay] Coding Level of Care Code Critical Care >/= 30 minutes Diagnoses Sepsis A41.9 Urinary tract infection N39.0 RANI (acute kidney injury) N17.9 Hematuria R31.9 Colostomy complication, unspecified K94.00 Acute hyperkalemia E87.5 Sacral ulcer L98.429 Chronic suprapubic catheter Z93.59 Abdominal pain, chronic, generalized R10.84; G89.29 Gastroesophageal reflux disease without esophagitis K21.9 Esophagitis presence: without esophagitis Other depression F32.89 Depression Type: other depression SAVAGE on CPAP G47.33 Lymphedema I89.0 History of DVT (deep vein thrombosis) Z86.718
--- NOTE | 2025-04-30 17:39 | PC.NURSE ---
[facility] room number and unit number is as follows. [id number], #[phone]. Jingesh Paul called for transfer, was told they would give the unit a call back when transport is available.
[2025-04-30] MEDS: ondansetron 2 mg/ML SDV 2 mL 4 MG IVP (21:22)
--- NOTE | 2025-04-30 23:38 | US_ITS ---
WS: [id number] RIGHT UPPER QUADRANT ULTRASOUND HISTORY: increase liver enzymes and alk phos COMPARISON: None available. Liver: 15.0 cm in length. Poorly visualized due to body habitus. Coarse echotexture. No mass or intrahepatic duct dilatation. Portal Vein: Normal hepatopetal flow with monophasic waveform. Gallbladder: Prior cholecystectomy. CBD: 0.4 cm Pancreas: Not visualized. Right kidney: 9.4 cm in length. Normal size kidney with mild cortical thinning. Shadowing from the central renal pelvis. Renal calcifications were previously identified on 04/03/2025. There is no hydronephrosis. Aorta and IVC: Limited but unremarkable as visualized. No ascites. US/US liver [id number] IMPRESSION: 1. Prior cholecystectomy. 2. Normal size liver with coarse echotexture from hepatocellular disease. 3. Normal common bile duct. 4. Mild cortical thinning RIGHT kidney with central nonobstructing calcificati ons.
== END 2025-04-30 23:58 | disposition short-term general hospital (02) | DRG 872 ==
LOC: ER 15:10 → ER IP 17:06 → ICU 19:53
PROVIDERS: Admitting Provider Student in an Organized Health Care Education/Training Program; Emergency Provider Emergency Medicine; PCP Family Medicine; Visit Provider Student in an Organized Health Care Education/Training Program
DX: A41.9 Sepsis, unspecified organism (principal); N39.0 Urinary tract infection, site not specified; N17.9 Acute kidney failure, unspecified; K94.01 Colostomy hemorrhage; R31.9 Hematuria, unspecified; E87.5 Hyperkalemia; L89.150 Pressure ulcer of sacral region, unstageable; Z96.0 Presence of urogenital implants; K21.9 Gastro-esophageal reflux disease without esophagitis; F32.89 Other specified depressive episodes; G47.33 Obstructive sleep apnea (adult) (pediatric); I73.9 Peripheral vascular disease, unspecified; E86.0 Dehydration; N31.9 Neuromuscular dysfunction of bladder, unspecified; Z99.89 Dependence on other enabling machines and devices; Z79.01 Long term (current) use of anticoagulants; Z86.718 Personal history of other venous thrombosis and embolism; Z87.440 Personal history of urinary (tract) infections
CPT/HCPCS: 36415; 36416; 36600; 71045; 76705; 80048; 80051; 80053; 81001; 82330; 82803; 82805; 82962; 83605; 83735; 84484; 85025; 85610; 85730; 86140; 86850; 86900; 87040; 87077; 87086; 87150; 87186; 87205; 93005; 94640; 96365; 96367; 96372; 96375; 96376; 97165; 99285; A6210; J0612; J0744; J1644; J1815; J2185; J2405; J2470; J3490; J7030; J7120; J7611; J7799; J9999

== ENCOUNTER 2025-05-04 12:45 | Oncology outpatient (recurring) (ONCR) | payer OTHER, MEDICAID, SELFPAY ==
[2025-04-13 12:39] LABS: Hematocrit 33.6 % (36-47); Hemoglobin 10.50 g/dL (11.27-16.99); Mean Corpuscular HGB Conc 31.3 g/dL (30-55); Mean Corpuscular Hemoglobin 30.2 pg (27-33); Mean Corpuscular Volume 96.6 fl (85-98); Nucleated Red Blood Cells % 0 %; Platelet Count 435 10^3/cmm (157-399); Red Blood Count 3.48 10^6/uL (3.85-5.65); White Blood Count 7.53 10^3/uL (3.29-11.43)
[2025-04-13 12:57] LABS: Alanine Aminotransferase 33 U/L (0-33); Albumin Level 3.5 g/dL (3.5-5.2); Alkaline Phosphatase 133 U/L (35-105); Anion Gap 15.3 (5-19); Aspartate Amino Transferase 24 U/L (0-32); Blood Urea Nitrogen 44 mg/dL (6-20); Calcium 9.0 mg/dL (8.5-10.5); Carbon Dioxide 21 mmol/L (22-29); Chloride 103 mmol/L (98-107); Globulin 4.0 g/dL (1.3-4.6); Glucose 125 mg/dL (65-115); Magnesium 1.9 mg/dL (1.7-2.3); Osmolality Calculated 293 mOsm/kg (285-295); Potassium 4.3 mmol/L (3.5-5.1); Sodium 135 mmol/L (136-145); Total Protein 7.5 g/dL (6.6-8.7); Triglycerides 127 mg/dL (0-150)
--- NOTE | 2025-04-20 13:34 | PC.NURSE ---
Central line dressing changed via sterile technique. No redness or irritation noted. Pt tolerated well. No blood return from either lumen.
[2025-04-20 13:40] LABS: Hematocrit 36.7 % (36-47); Hemoglobin 11.50 g/dL (11.27-16.99); Mean Corpuscular HGB Conc 31.3 g/dL (30-55); Mean Corpuscular Hemoglobin 30.5 pg (27-33); Mean Corpuscular Volume 97.3 fl (85-98); Nucleated Red Blood Cells % 0 %; Platelet Count 474 10^3/cmm (157-399); Red Blood Count 3.77 10^6/uL (3.85-5.65); White Blood Count 7.98 10^3/uL (3.29-11.43)
[2025-04-20 14:00] LABS: Alanine Aminotransferase 35 U/L (0-33); Albumin Level 3.5 g/dL (3.5-5.2); Alkaline Phosphatase 155 U/L (35-105); Anion Gap 18.5 (5-19); Aspartate Amino Transferase 30 U/L (0-32); Blood Urea Nitrogen 52 mg/dL (6-20); Calcium 9.3 mg/dL (8.5-10.5); Carbon Dioxide 19 mmol/L (22-29); Chloride 100 mmol/L (98-107); Globulin 4.2 g/dL (1.3-4.6); Glucose 130 mg/dL (65-115); Magnesium 3.5 mg/dL (1.7-2.3); Osmolality Calculated 292 mOsm/kg (285-295); Potassium 4.5 mmol/L (3.5-5.1); Sodium 133 mmol/L (136-145); Total Protein 7.7 g/dL (6.6-8.7); Triglycerides 120 mg/dL (0-150)
[2025-04-26 13:17] LABS: Hematocrit 33.3 % (36-47); Hemoglobin 10.50 g/dL (11.27-16.99); Mean Corpuscular HGB Conc 31.5 g/dL (30-55); Mean Corpuscular Hemoglobin 30.3 pg (27-33); Mean Corpuscular Volume 96.2 fl (85-98); Nucleated Red Blood Cells % 0 %; Platelet Count 385 10^3/cmm (157-399); Red Blood Count 3.46 10^6/uL (3.85-5.65); White Blood Count 4.71 10^3/uL (3.29-11.43)
--- NOTE | 2025-04-26 13:29 | PC.NURSE ---
Patient's central line dressing changed utilizing sterile technique. Site cleaned with Chloraprep, biopatch applied along with Sorbaview dressing. Claves and swab caps were replaced. Both lumens were flushed with saline and heparin. No blood return noted, patient states this is normal for her.
[2025-04-26 13:31] LABS: Alanine Aminotransferase 37 U/L (0-33); Albumin Level 3.3 g/dL (3.5-5.2); Alkaline Phosphatase 141 U/L (35-105); Anion Gap 14.8 (5-19); Aspartate Amino Transferase 30 U/L (0-32); Blood Urea Nitrogen 58 mg/dL (6-20); Calcium 8.7 mg/dL (8.5-10.5); Carbon Dioxide 22 mmol/L (22-29); Chloride 97 mmol/L (98-107); Globulin 3.9 g/dL (1.3-4.6); Glucose 107 mg/dL (65-115); Magnesium 2.6 mg/dL (1.7-2.3); Osmolality Calculated 285 mOsm/kg (285-295); Potassium 4.8 mmol/L (3.5-5.1); Sodium 129 mmol/L (136-145); Total Protein 7.2 g/dL (6.6-8.7); Triglycerides 139 mg/dL (0-150)
== END 2025-05-07 23:59 | disposition home or self-care (01) ==
PROVIDERS: Nurse Practitioner; PCP Family Medicine; Visit Provider Family Medicine
DX: Z53.9 Procedure and treatment not carried out, unspecified reason (principal)
CPT/HCPCS: 36415; 36592; 80053; 83735; 84100; 84478; 85025

== ENCOUNTER 2025-05-12 12:13 | Inpatient (IN) | payer MEDICARE, MEDICAID, SELFPAY ==
--- OUTSIDE RECORDS SUMMARY | 2025-05-01 00:50 | XMS_ITS | Encounter Summary ---
[facility] Organization [facility] Address [address] [place] [address] Care Team Providers Care Addiction Counselor Name Role Phone Jose Bowers MD Primary Care Provider Unavailab le Reason for Visit * Auth/Cert (Routine) Specialty Diagnoses / Procedures Referred By Contac t Referred To Contact Internal Medicine Diagnoses colostomy with mild bleeding and cellulitis around area Clinton Ramsey MD [address] [place] [address] Phone: tel: fax: [facility] 3D Medical Telemetry [address] [place] [address] Phone: tel: fax: Referral ID Status Reason Start Date Expiration Date Visits Re quested Visits Authorized [id number] 1 1 Encounter Details Date Type Department Care Team (Latest Contact Info) Description 05/01/2025 1:50 AM CDT - 05/06/2025 4:27 PM CDT Hospital Encounter [facility] 3D Medical Telemetry [address] [place] [address] Clinton Ramsey MD [address] [place] [address] Goran Machuca DO [address] [place] [address] Arielle Sosa MD [address] [place] [id number] Parastomal hernia with obstruction and without gangrene Discharge Disposition: Home or Self Care Social History Tobacco Use Types Packs/Day Years Used Date Smoking Tobacco: Unknown Tobacco Cessation:Counseling Given: Not Answered Alcohol Use Standard Drinks/Week Comments Never 0 (1 standard drink = 0.6 oz pur e alcohol) Food Insecurity Answer Date Recorded Do you find you are eating l ess than you should because you can t pay for food? No 05/02/2025 Transportation Needs Answer Date Record ed Have you gone without health care because you didn t have a way to get there? Or worry about transportation for future doctor visits, worm picker medication, etc.? No 2024 Housing Stability Answer Date Recorded Do you worry you won t have a steady place to sleep or struggle to pay rent or mortgage? No 05/02/2025 Utility Needs Answer Date Recorded Do you have difficulty payin g for utility costs (electric, water or gas bills)? No 05/02/2025 Medication Needs Answer Date Recorded Have you skipped taking medi cation due to cost or worry you can t afford new medications? No 05/02/2025 Feeling Safe Answer Date Recorded Are you in a relationship wi th someone who hurts you emotionally and/or physically? 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 Gender Identity Not on file Sexual Orientation Not on file documented as of this encounter Last Filed Vital Signs Vital Sign Reading Time Taken Comments Blood Pressure 91/55 05/06/2025 3:39 PM CDT Pulse 117 05/06/2025 3:39 PM CDT Temperature 36.9 C (98.5 F) 05/06/2025 3:39 PM CDT Respiratory Rate 16 05/06/2025 7:27 AM CDT Oxygen Saturation 100% 05/06/2025 3:39 PM CDT Inhaled Oxygen Concentration - - Weight 101.4 kg (223 lb 8.7 oz) 05/06/2025 4:04 AM CDT Height 160 cm (5' 3 ) 05/04/2025 4:58 AM CDT Body Mass Index 39.6 05/04/2025 4:58 AM CDT documented in this encounter Discharge Summaries * Arielle Sosa MD - 05/06/2025 10:57 AM CDT [facility] Hospitalist- Discharge Summary Jami Gandhi 55 y.o. female 1970 CSN: [id number] Date of Admission: 05/01/2025 Date of Discharge: 05/06/2025 Discharging Physician: Arielle Sosa MD PCP: Jose Bowers MD LOS: 3 days Code Status at Discharge: Full Code Dispo: Home Labs and studies from this hospitalization needing follow up: CBC and Comprehensive Metabolic Panel (CMP) in 3 to 4 days from discharge INR in 2 to 3 days from discharge Abnormal Imaging: CT abdomen pelvis Follow-up: You must follow up with Jose Bowers MD in 3-5 days FOLLOW UP CONSULTANTS: With primary surgical team at [facility] in 1-2 weeks Discharge Condition: improving Primary Discharge Diagnosis: Parastomal hernia with obstruction and without gangrene Other Active medical issues also addressed during this admission: Active Hospital Problems Diagnosis Protein-calorie malnutrition, moderate Enterocolic fistula Colostomy status (CMS/HCC) Skin breakdown Acute cystitis Decubitus ulcer Irreducible intra-abdominal hernia MRSA colonization Complete paraplegia H/O deep venous thrombosis Morbid obesity due to excess calories Obstructive sleep apnea syndrome SBO (small bowel obstruction) Parastomal hernia with obstruction and without gangrene Resolved Hospital Problems No resolved problems to display. HOSPITAL COURSE: Please see H and P for full details on admission, symptoms and initial care. Jami Gandhi is a 55-year-old female with a history of morbid obesity, paraplegia, prior deep venous thrombosis, obstructive sleep apnea, enterocolonic fistula, and colostomy status who was admitted for evaluation of possible bleeding from her colostomy site and urinary tract infection. On admission, she reported worsening chronic abdominal pain, skin breakdown around her colostomy, and ongoing leakage from her enterocolonic fistula, but denied fevers or chills. Initial laboratory evaluation revealed leukocytosis, stable hemoglobin, and urinalysis consistent with a urinary tract infection; urine cultures were not available from the outside facility. She was started on intravenous ceftriaxone, which was discontinued on 05/04/2025. During her hospitalization, a CT abdomen and pelvis demonstrated a large parastomal hernia containing small bowel and distal colon with findings suspicious for incarcerated hernia and small bowel obstruction, as well as mild bilateral hydronephrosis and mild urothelial thickening. General surgery was consulted and recommended conservative management with nasogastric tube decompression, bowel rest, intravenous fluids, and serial abdominal exams, with transfer to a tertiary center for definitive management due to her surgical complexity. The patient was placed NPO, received nasogastric tube decompression, and was accepted for transfer to [facility], but ultimately improved with conservative management, tolerated diet advancement, and requested discharge home with follow-up at [facility]. Additional issues addressed during the admission included chronic enterocolonic fistula and colostomy care, with ongoing wound and ostomy nursing involvement for management of skin breakdown and appliance troubleshooting. She was noted to have a chronic stage 4 sacral decubitus ulcer and multiple abdominal wounds, for which wound care recommendations were implemented. Anticoagulation was held due to concern for potential gastrointestinal bleeding and possible need for surgical intervention. She was also found to have moderate protein-calorie malnutrition, with significant weight loss overthe preceding months and a history of prior TPN, and nutrition support was monitored with recommendations for further intervention if oral intake remained inadequate. Physical and occupational therapy assessments confirmed that she was at her baseline functional status, requiring assistance for mobility and activities of daily living. She remained hemodynamically stable throughout her stay and was discharged with instructions to follow up with her surgical team at [facility]. PCP COMMUNICATION : Jose Bowers MD via [employer] communication MEDICATION CHANGES (significant) NA MEDICATION RECONCILIATION Current and discharge medications reviewed and reconciled: Yes Consultants: IP CONSULT TO CASE MANAGEMENT IP CONSULT TO WOUND/SKIN CARE TEAM IP CONSULT TO IV TEAM IP CONSULT TO IV TEAM IP CONSULT TO IV TEAM Procedures performed: DISCHARGE MEDICATIONS: Medication List CONTINUE taking these medications ascorbic acid (vitamin C) 500 mg tablet Commonly known as: VITAMIN C Take 500 mg by mouth daily. Refills: 0 bimatoprost 0.01 % solution Commonly known as: LUMIGAN Administer 1 Drop in both eyes daily at bedtime. Refills: 0 docusate sodium 100 mg capsule Commonly known as: COLACE Take 200 mg by mouth 2 times daily as needed for Constipation. Refills: 0 gabapentin 300 mg capsule Commonly known as: NEURONTIN Take 300 mg by mouth 3 times daily. Refills: 0 methenamine hippurate 1 gram Tablet Commonly known as: HIPREX Take 1 Gram by mouth 4 times daily With 500 mg of vitamin c . Refills: 0 omeprazole 20 mg Capsule, Delayed Release(E.C.) Commonly known as: PriLOSEC Take 20 mg by mouth daily. Refills: 0 oxyBUTYnin 5 mg tablet Commonly known as: DITROPAN Take 5 mg by mouth daily. Refills: 0 potassium CHLORIDE 10 mEq Extended Release tablet Commonly known as: KLOR-CON Take 10 mEq by mouth 2 times daily with meals. Refills: 0 spironolactone 25 mg tablet Commonly known as: ALDACTONE Take 25 mg by mouth 2 times daily. Refills: 0 traZODone 50 mg tablet Commonly known as: DESYREL Take 25 mg by mouth daily at bedtime. Refills: 0 venlafaxine 25 mg tablet Commonly known as: EFFEXOR Take 150 mg by mouth daily. Refills: 0 warfarin 7.5 mg tablet Commonly known as: COUMADIN Take 7.5 mg by mouth every Saturday, and Saturday. Refills: 0 STOP taking these medications baclofen 20 mg tablet Commonly known as: LIORESAL Activity level: up as tolerated DIET: DIET GENERAL Effective Now Wound Care: Per wound care team: Recommendations: Coccyx- Moisten gauze with Vashe and wring out excess. Lighty pack wound bed and cover with dry dressing. Change BID. Gluteal/thigh-Wash with soap and water, pat dry. Apply Desitin 13% (SPD) BID and PRN as needed. L outer abd- L inner abd- Cleanse wound with normal saline and pat dry. Apply Mepilex Ag (SPD) to open wound, cover with Mepilex border. Change every 3 days and PRN per soiling. DISCHARGE EXAM: BP 105/64 (BP Location: Left arm, Patient Position (BP): Supine) Pulse (!) 115 Temp 98.9 ??F (37.2 ??C) Resp 17 Ht 5' 3 (1.6 m) Wt 104.2 kg (229 lb 11.5 oz) SpO2 98% BMI 40.69 kg/m?? Last documented weight: Weight: 104.2 kg (229 lb 11.5 oz) (05/05/25 0336) General: alert, in no distress, morbidly obese Neurologic: Grossly normal with generalized weakness. Incomplete paraplegia HEENT: atraumatic, Normocephalic, without obvious abnormality Lungs: clear to auscultation bilaterally, normal respiratory effort Heart: normal rate, regular rhythm, normal S1, S2, no murmurs, rubs, clicks or gallops Abdomen: Soft, non-tender. Left-sided colostomy, no bleeding at stoma site. Bowel sounds normal. Nomasses, no organomegaly. Extremities: extremities normal, atraumatic, no cyanosis or edema, intact distal pulses, moves all extremities equally, no edema, redness or tenderness in the calves or thighs, normal strength, normal tone Skin: negative for rash Home Healthcare Is this patient being discharged with Home Health? No Total time spent on discharge services today including examining and educating the patient and available family members, writing prescriptions and reviewing the discharge medication list, documentingthis discharge summary and coordinating outpatient care and follow up required > 30 minutes. documented in this encounter Discharge Instructions * Discharge Instructions* Rema Mccormack RN - 05/05/2025 9:29 AM CDT MEDICAL DISCHARGE INSTRUCTIONS Discharge to: Home Medications: No changes were made to your medications Follow up: Follow up with your primary care provider in 3-5 days. Please call your primary care physician to schedule a hospital follow up appointment. Follow up with [facility] surgeon, do not follow up with General surgery here. Please call your surgeon at [facility] to update him on this hospitalization. No future appointments. Tests/Labs: CBC CMP Diet: DIET GENERAL Effective Now Activity: Increase activity as tolerated. Rest between activities. When to call Dr: Temperature above 101 Shortness of breath Symptoms that brought you to the hospital return New onset of pain not relieved by medication Arielle oSsa MD Kelli J Kirk, RN, 05/05/2025 12:17 PM documented in this encounter Medications at Time of Discharge traZODone (DESYREL) 50 mg tablet Take 25 mg by mouth daily at bedtime. venlafaxine (EFFEXOR) 25 mg tablet Take 150 mg by mouth daily. gabapentin (NEURONTIN) 300 mg capsule Take 300 mg by mouth 3 times daily. ascorbic acid, vitamin C, (VITAMIN C) 500 mg tablet Take 500 mg by mouth daily. 10/28/2015 spironolactone (ALDACTONE) 25 mg tablet Take 25 mg by mouth 2 times daily. 10/28/2015 omeprazole (PriLOSEC) 20 mg Capsule, Delayed Release(E.C.) Take 20 mg by mouth daily. 10/28/2015 bimatoprost (LUMIGAN) 0.01 % solution Administer 1 Drop in both eyes daily at bedtime. 10/28/2015 methenamine hippurate (HIPREX) 1 gram Tablet Take 1 Gram by mouth 4 times daily With 500 mg of vitamin c . 10/28/2015 docusate sodium (COLACE) 100 mg capsule Take 200 mg by mouth 2 times daily as needed for Constipation. 10/28/2015 oxybutynin chloride (DITROPAN) 5 mg tablet Take 5 mg by mouth daily. 10/28/2015 potassium chloride (KLOR-CON) 10 mEq Extended Release tablet Take 10 mEq by mouth 2 times daily with meals. 10/28/2015 warfarin (COUMADIN) 7.5 mg tablet Take 7.5 mg by mouth every Saturday, and Saturday. 10/26/2015 documented as of this encounter Progress Notes * Ileana Grover RN - 05/05/2025 1:58 PM CDT Discharge instruction given to patient. Patient verbalizes understanding. No further questions asked at this time. Patient still has her double lumen central line. Patient states she is supposed to have another appointment for central line removal after the TPN had been discontinued, unfortunately she was readmitted before being removed. Patient states she will contact her provider for the central line removal. Central line is currently in place. * Arielle Sosa MD - 05/05/2025 10:55 AM CDT Images from the original note were not included. Your life is our life's work [facility] Hospitalist/Hospital Medicine Progress Note LOS: 4 days Room/Bed: [facility]/ Patient name: Jami Gandhi Date of : 1970 HOSPITAL COURSE SUMMARY: Jami Gandhi is a 55 y.o. female with known morbid obesity, paraplegia, history of DVT, SAVAGE, enterocolonic fistula, colostomy status who is being admitted for further evaluation of possible bleeding from colostomy site, UTI. Patient presents a direct mission from [facility] for a higher level of care. She was initially admitted over there due to concerns of possible GI bleeding. Her hemoglobin remained stable around 12.9. She also has skin breakdown around her colostomy site. She has continuallyleakage from her enterocolonic fistula site as well. She complains of diffuse abdominal pain which is chronic for her but she states is worse over the past few days compared to her baseline. She denies associate fevers or chills. She does have a decubitus ulcer which is chronic per patient/not new.She was on Flagyl/ciprofloxacin at outlying facility for this. CT ab pelvis performed 04/22/2025 by report was negative. This was not sent with patient and her discharge paperwork. Her initial labs showed leukocytosis 12.15 which had decreased down to 10 after 48 hours of admission at outlying facility. Her initial hemoglobin was 12.5 and remained stable during her stay there. She was initially in renal failure with creatinine of 1.6 which returned down to 1.3 prior to discharge with IV fluids. UA was concerning for UTI with WBC count of 50, 3+ bacteria. Urine cultures were not sent with patient. She also initially had a hyperkalemia with potassium of 5.8 which also resolved. Given patient's complaint of abdominal pain will repeat CT abdomen pelvis. Will order wound care for the patient's ostomy site as well as decubitus ulcerations. Will monitor kidney function and potassium closely. Will continue patient on IV Rocephin for potential UTI. Decubitus ulcer does not currently appear infected. Will monitor hemoglobin closely; currently will defer GI consultation due to no significant signs of bleeding. 05/01: Continued epigastric abdominal discomfort without any other symptoms. Stromal bleeding has ceased. CT abdomen pelvis concerning for incarcerated hernia, general surgery consulted 05/02: Continued upper abdominal discomfort without nausea or emesis. Steady colostomy output. Willinitiate clear liquid diet and monitor. Case was discussed with primary surgery team [facility]: Recommended observation,conservative management with bowel regimen. Patient was reevaluated by general surgery today. Concern for developing obstructive symptoms, NGT placed. Patient advised transfer to [facility] at the earliest. Personally reachedout to [facility] surgery team. Awaiting callback and acceptance 05/03: Upper abdominal discomfort is improving. No further nausea or emesis. Low-volume colostomy output noted. Continue NGT, bowel rest and IV hydration pending transfer to [facility] 05/04: Abdominal discomfort improving. Steady colostomy output. Continue NG to LIS. Diet reintroduction, advancement per surgery. Awaiting transfer to [facility] 05/05: NGT clamped over last 24 hours. Clears initiated and tolerating well. Patient cleared for discharge by surgery. Plan to discharge home later today with close outpatient follow-up with PCP Consultants: IP CONSULT TO CASE MANAGEMENT IP CONSULT TO WOUND/SKIN CARE TEAM IP CONSULT TO IV TEAM IP CONSULT TO IV TEAM IP CONSULT TO IV TEAM SUBJECTIVE: Patient is seen resting in bed, appears comfortable Tolerating clears. No abdominal pain, no nausea or emesis. Eager to go home. Son at bedside updated ROS: History obtained from the patient- 12 point review of systems negative other than above OBJECTIVE: Temp (24hrs), Av ??F (36.7 ??C), Min:97.6 ??F (36.4 ??C), Max:98.5 ??F (36.9 ??C) BP 103/57 (BP Location: Left arm, Patient Position (BP): Sitting) Pulse (!) 113 Temp 98.5 ??F (36.9 ??C) (Oral) Resp 16 Ht 5' 3 (1.6 m) Wt 101.4 kg (223 lb 8.7 oz) SpO2 97% BMI 39.60 kg/m?? Intake/Output Summary (Last 24 hours) at 05/06/2025 1055 Last data filed at 05/06/2025 0900 Gross per 24 hour Intake 260 ml Output 1350 ml Net -1090 ml Last documented weight: Weight: 101.4 kg (223 lb 8.7 oz) (05/06/25 0404) EXAM: General: alert, in no distress, morbidly obese Neurologic: Grossly normal with generalized weakness. Incomplete paraplegia HEENT: atraumatic, Normocephalic, without obvious abnormality Lungs: clear to auscultation bilaterally, normal respiratory effort Heart: normal rate, regular rhythm, normal S1, S2, no murmurs, rubs, clicks or gallops Abdomen: Soft, non-tender. Left-sided colostomy, no bleeding at stoma site. Bowel sounds normal. Nomasses, no organomegaly. Extremities: extremities normal, atraumatic, no cyanosis or edema, intact distal pulses, moves all extremities equally, no edema, redness or tenderness in the calves or thighs, normal strength, normal tone Skin: negative for rash LABORATORY: Recent Labs 05/03/25 1523 05/04/25 0100 05/05/25 0702 WBC 10.0 8.5 9.3 HGB 12.0 10.5* 9.8* HCT 37.8 34.0* 31.2* PLT 457* 433 447* Recent Labs 05/03/25 1523 05/04/25 0100 05/05/25 0702 NA 133* 133* 133* K 5.0 4.2 3.8 CL 97* 97* 96* CO2 20* 22 23 CA 9.3 8.8 9.1 BUN 52* 51* 42* CREAT 1.12* 1.20* 1.16* GLUCOSE 102* 94 96 Recent Labs 05/03/25 1523 05/04/25 0100 05/05/25 0702 TOTALPROTEIN 7.5 6.8 6.8 ALBUMIN 3.4* 2.9* 3.3* BILITOTAL <0.2 0.2 0.2 ALKPHOS 224* 199* 161* AST 43* 38* 38* ALT 46* 41* 39* No results for input(s): INR , PT in the last 72 hours. Invalid input(s): PTT No results for input(s): BASETROP , 2HRTROP , DELTA , 6HRTROP in the last 72 hours. Diagnostic testing reviewed by me: Medications were reviewed by me. Current Facility-Administered Medications: heparin injection 5,000 Units, 5,000 Units, subCUT, every 8 hours, Arielle Sosa MD, 5,000 Units at 05/06/25 0502 escitalopram oxalate (LEXAPRO) tablet 10 mg, 10 mg, Oral, daily, Arielle Sosa MD, 10 mg at1 0939 hydrOXYzine HCL (ATARAX) tablet 25 mg, 25 mg, Oral, every 6 hours PRN, Arielle Sosa MD, 25mg at 05/04/25 2225 sennosides-docusate sodium (SENNA-S) 8.6-50 mg per tablet 1 Tablet, 1 Tablet, Oral, BID, Arielle Sosa MD, 1 Tablet at 05/06/25 0939 polyethylene glycol (MIRALAX) packet 17 Gram, 17 Gram, Oral, daily, Lisa Omalley NP, 17 Gram at 05/06/25 0939 sodium chloride flush injection 10 mL, 10 mL, IV, every 12 hours (2 times daily), Goran Machuca DO, 10 mL at 05/05/25 2114 sodium chloride flush injection 10 mL, 10 mL, IV, see admin instructions, Goran Machuca DO sodium chloride 0.9 % flush bag 25 mL, 25 mL, IV, see admin instructions, Goran Machuca DO dextrose 5 % in water 250 mL flush bag 25 mL, 25 mL, IV, see admin instructions, Goran Machuca DO acetaminophen (TYLENOL) tablet 650 mg, 650 mg, Oral, every 6 hours PRN, Goran Machuca DO, 650 mg at 05/01/25 1015 naloxone (NARCAN) 0.4 mg/mL injection 0.1 mg, 0.1 mg, IV, see admin instructions, Goran Machuca DO ondansetron (ZOFRAN) 4 mg/2 mL injection 4 mg, 4 mg, IV, every 6 hours PRN, Goran Machuca DO, 4 mg at 05/02/25 1333 aluminum - magnesium - simethicone (MYLANTA) 200-200-20 mg/5 mL oral suspension 30 mL, 30 mL, Oral,every 2 hours PRN, Goran Machuca DO melatonin tablet 3 mg, 3 mg, Oral, at bedtime PRN, Goran Machuca DO, 3 mg at 05/04/25 0206 pantoprazole (PROTONIX) 40 mg in sodium chloride 0.9% 10 mL injection, 40 mg, IV, BID, Goran Machuca DO, 40 mg at 05/06/25 0940 ascorbic acid (vitamin C) (VITAMIN C) tablet 500 mg, 500 mg, Oral, daily, Arielle Sosa MD,500 mg at 05/06/25 0939 sodium chloride flush injection 10 mL, 10 mL, IV, BID, Goran Machuca DO, 10 mL at 05/05/25 2114 HYDROcodone-acetaminophen (NORCO) 5-325 mg per tablet 1 Tablet, 1 Tablet, Oral, every 6 hours PRN, Arielle Sosa MD, 1 Tablet at 05/02/25 1032 HYDROmorphone (PF) (DILAUDID) injection 0.3 mg, 0.3 mg, IV, every 2 hours PRN, Elba Small NP, 0.3 mg at 05/02/25 1909 Primary discharge diagnosis: Parastomal hernia with obstruction and without gangrene Other active medical issues also addressed during this admission: Active Hospital Problems Diagnosis Protein-calorie malnutrition, moderate Enterocolic fistula Colostomy status (CMS/HCC) Skin breakdown Acute cystitis Decubitus ulcer Irreducible intra-abdominal hernia MRSA colonization Complete paraplegia H/O deep venous thrombosis Morbid obesity due to excess calories Obstructive sleep apnea syndrome SBO (small bowel obstruction) Parastomal hernia with obstruction and without gangrene Resolved Hospital Problems No resolved problems to display. ASSESSMENT AND PLAN: Acute cystitis Continue Telemetry Continue ceftriaxone pending culture and sensitivities Possible bleeding from ostomy Current output without signs of bleeding Monitor hemoglobin daily Incarcerated abdominal hernia With suspected obstruction CT Abdomen Pelvis: Possible incarcerated hernia. General surgery consulted NGT removed. Continue clears as tolerated Continue IV Protonix Consulted surgery team: Signed off Patient was recommended for transfer to [facility]. Patient accepted for transfer, pending bed availability. Given clinical progress, plan to discharge home with outpatient follow-up with [facility] Enterocolic fistula Colostomy status (CMS/HCC) Skin breakdown Patient typically follows at [facility] in [place] Recently had TPN catheter removed Wound care Decubitus ulcer Routine wound care per wound care team H/O deep venous thrombosis Hold anticoagulation for now given concern for potential GI bleed Holding anticoagulation for any surgical procedure needs. Will restart Coumadin today Morbid obesity due to excess calories Completes all aspects of care Obstructive sleep apnea syndrome Nocturnal CPAP per home regimen No results for input(s): GLUCPOC in the last 72 hours. DVT prevention: SCD Outpatient follow up: PCP Anticipated Disposition Location: Home Timeframe: Stable for discharge Criteria: Clinical improvement Education/DME/Equipment Needs: NA Patient's understanding of illness: Good Primary family contact: NA Code status: Full Code MDM complexity: [] Mild [x] Moderate [] High Care included, Preparing to see the patient, Obtaining and/or reviewing separately obtained history, Performing a medically appropriate examination and/or evaluation, Counseling and educating the patient/family/caregiver, Ordering medications, tests or procedures, Documenting clinical information in the medical record, Referring and communication with other health childcare aide (not separately reported), and Independently interpreting results and communicating results to the patient/family/caregiver (not separately reported). Arielle Sosa MD 05/06/2025, 10:55 AM * Sonia Clay NP - 05/05/2025 9:24 AM CDT Images from the original note were not included. General Surgery progress Note Jami Gandhi 1970 CSN: [id number] 05/05/2025 Subjective: Consult for: SBO, parastomal hernia, fistula This is a 55 y.o. female with recent admission to outlying facility for evaluation of bleeding fromcolostomy site. Her hemoglobin remained stable at that facility. She has skin breakdown around her colostomy site and constant leaking from enterocolonic fistula. Patient has chronic abdominal pain, but this has worsened in the past few days. Denies fever or chills. Decubitus ulcer on sacrum is chronic. Of note, patient has been on TPN for her fistula and this was discontinued last Saturday. Shewas tolerating diet at that time. Patient unsure about outputs from fistula and ostomy, does reportthat fistula tends to put out more than her ostomy. Patient has had multiple abdominal surgeries at [facility], [facility], and [facility]. She follows with the surgical group at [facility]. Her ostomy was originally created in 2007, fistula first occurred this year. She also has an area on her left abdominal wall that had a necrotic wound that was debrided at [facility]. On admission here, white count is 7.8. Lactic is 0.9. Hemoglobin is 9.9. Creatinine is 1.14. Hyponatremic at 132. Patient CT AP reveals left lower abdominal wall defect containing small bowel and distal colon. There is decompression of bowel exiting the hernia. No free air or fluid. 05/01- consulted. Place NG and rec transfer to [facility] for management. 05/02- diet advanced to CLD this morning by primary team and patient not tolerating. 02/14 pain, nausea and near vomiting. Some ileostomy and fistula output but abdomen remains painful on exam 05/05 -- Tolerating NGT clamped and diet for 24 hours. Would like to go home. Denies abdominal pain Objective: BP 118/73 (BP Location: Left arm, Patient Position (BP): Supine) Pulse (!) 113 Temp 98.7 ??F (37.1 ??C) Resp 18 Ht 5' 3 (1.6 m) Wt 104.2 kg (229 lb 11.5 oz) SpO2 94% BMI 40.69 kg/m?? General appearance: NAD Neck: TM Lungs: Normal effort Heart: RR Abdomen: NT. Large parastomal hernia on left. Wounds over hernia area, no s/s of infection.+ Stool in ostomy bag. Urostomy also in place. Extremities: SCHMID Skin: Warm, dry Neurologic: Grossly normal Sacral decubitus ulcer: Data Review: CBC: Recent Labs 05/03/25 1523 05/04/25 0100 05/05/25 0702 WBC 10.0 8.5 9.3 HGB 12.0 10.5* 9.8* HCT 37.8 34.0* 31.2* PLT 457* 433 447* MCV 92.2 95.2 93.4 BMP: Recent Labs 05/03/25 1523 05/04/25 0100 05/05/25 07 GLUCOSE 102* 94 96 BUN 52* 51* 42* CREAT 1.12* 1.20* 1.16* NA 133* 133* 133* K 5.0 4.2 3.8 CL 97* 97* 96* CO2 20* 22 23 ANIONGAP 16 14 14 LFTs: Recent Labs 05/03/25 1523 05/04/25 0100 05/05/25 0702 ALKPHOS 224* 199* 161* ALT 46* 41* 39* AST 43* 38* 38* BILITOTAL <0.2 0.2 0.2 ALBUMIN 3.4* 2.9* 3.3* Coagulation: No results for input(s): PT , INR , APTT in the last 72 hours. ABGs: No results for input(s): PH , PCO2 , PO2 , HCO3 , BASEEXCESS , SO2 in the last [address] 05/01 ABDOMEN/PELVIS: Lower thorax demonstrates no acute findings. Normal size liver. Smooth hepatic contour. No concerning hepatic lesions. Mild hepatic steatosis. The gallbladder is surgically absent. No biliary ductal dilatation or choledocholithiasis. Portal venous system is well-opacified. Pancreas is unremarkable. No pancreatic ductal dilatation, mass or inflammation. Spleen is unremarkable. Bilateral adrenal glands are unremarkable. There is a suprapubic catheter in place as normal hyperdense material within the lumen of the bladder which represents some retained contrast there is a previous contrast demonstration. Indwelling catheters forming within the decompressed bladder. There is mild bilateral hydronephrosis, greater on the right, with diffuse mild mural tibial thickening without evidence of popliteal nephritis. There is contrast material collecting systems are visualized calculi with evaluation degraded by presence of contrast. No visualized cortical lesions. Uterus appears surgically absent. Bilateral adnexa unremarkable. There are multiple clips in the left lower quadrant mesentery in the central mesentery of the lower abdomen. Aorta is normal in caliber. IVC unremarkable. Is an IVC filter in place. No pathologically enlarged lymph nodes. There is diastases anterior abdominal wall midline with wide neck defect measuring 1.3 cm containing portion transverse colon and small bowel without incarceration change. There is moderate partial colectomy with ostomy left lateral abdominal wall. There is additional large defect in left lateral abdominal wall just represent a large parastomal hernia measuring 7.2 cm which contains small bowel and distal colon with pathologic dilatation of small bowel within the hernia sac measuring 4.3 cm, the small bowel is not fully included with the point transition suspected along left lateral aspect of the hernia sac (series 3 image 200). There is some mild stranding in the mesentery just about the visualized pneumatosis or portal venous gas. The more distal small bowel exiting the hernia sac is completely decompressed. Body wall demonstrates no acute findings. No acute osseous findings. IMPRESSION: 1. Features consistent with previous partial colectomy with ostomy of the left lower quadrant. There appears to be either a large parastomal hernia or a large defect in the left lower abdominal wall which contains a large portion of small bowel and distal colon. There is pathologic dilatation of small bowel within the hernia sac with suggested point transition lung lateral aspect of the hernia sac with complete decompression of the exiting small bowel suspicious for incarcerated hernia with resultant small bowel obstruction. 2. Correlation is recommended suprapubic Landeros catheter in place with decompression of the urinary bladder. Mild urothelial thickening of bilateral ureters which can represent sequela ureteritis, correlation with urinalysis is recommended. No evidence of pyelonephritis. Imaging studies and labs personally reviewed. Assessment: Principal Problem: Acute cystitis Active Problems: SBO (small bowel obstruction) Morbid obesity due to excess calories Obstructive sleep apnea syndrome H/O deep venous thrombosis Complete paraplegia MRSA colonization Enterocolic fistula Colostomy status (CMS/HCC) Skin breakdown Decubitus ulcer Irreducible intra-abdominal hernia Protein-calorie malnutrition, moderate Plan: Abdominal wall hernia, irreducible, with SBO -Patient requesting to go home as she is feeling back to baseline, has appt with surgeon at [facility] in June. -Tolerated NGT clamping and diet for 24 hours. Advance to general soft. - Surgical complexity is not something we will electively operate on here, any operation here wouldbe done as a life saving measure. - OK to DC form surgical standpoint. Follow up with [facility] surgeon, does not need to follow up in general surgery clinic here. Sonia Clay NP Cosigned by Jaycob Mims DO at 05/05/2025 10:51 AM CDT * Amol Wong Physical Therapist - 05/04/2025 12:24 PM CDT Attempted to see patient for PT treatment. Upon chart review and discussion with patient, Pt is paraplegic, has a kyrie lift at home for transfers if needed, uses a motorized wheelchair for ambulation, and receives assistance from family for all ADL and IADL tasks at baseline. Pt reports no concerns with BUE and BUE ROM is WFL. Will discontinue with attempts for evaluation/to establish plan of care as Pt is near her baseline and there is no need for skilled OT services regarding ADL tasks at this time. Thank you, Amol Wong, Physical Therapist * Arielle Sosa MD - 05/04/2025 11:27 AM CDT Images from the original note were not included. Your life is our life's work [facility] Hospitalist/Hospital Medicine Progress Note LOS: 2 days Room/Bed: [facility]/01 Patient name: Jami Gandhi Date of : 1970 HOSPITAL COURSE SUMMARY: Jami Gandhi is a 55 y.o. female with known morbid obesity, paraplegia, history of DVT, SAVAGE, enterocolonic fistula, colostomy status who is being admitted for further evaluation of possible bleeding from colostomy site, UTI. Patient presents a direct mission from [facility] for a higher level of care. She was initially admitted over there due to concerns of possible GI bleeding. Her hemoglobin remained stable around 12.9. She also has skin breakdown around her colostomy site. She has continuallyleakage from her enterocolonic fistula site as well. She complains of diffuse abdominal pain which is chronic for her but she states is worse over the past few days compared to her baseline. She denies associate fevers or chills. She does have a decubitus ulcer which is chronic per patient/not new.[facility] pelvis performed 04/22/2025 by report was negative. This was not sent with patient and her discharge paperwork. Her initial labs showed leukocytosis 12.15 which had decreased down to 10 after 48 hours of admission at [facility]. Her initial hemoglobin was 12.5 and remained stable during her stay there. She was initially in renal failure with creatinine of 1.6 which returned down to 1.3 prior to discharge with IV fluids. UA was concerning for UTI with WBC count of 50, 3+ bacteria. Urine cultures were not sent with patient. She also initially had a hyperkalemia with potassium of 5.8 which also resolved. Given patient's complaint of abdominal pain will repeat CT abdomen pelvis. Will order wound care for the patient's ostomy site as well as decubitus ulcerations. Will monitor kidney function and potassium closely. Will continue patient on IV Rocephin for potential UTI. Decubitus ulcer does not currently appear infected. Will monitor hemoglobin closely; currently will defer GI consultation due to no significant signs of bleeding. 05/01: Continued epigastric abdominal discomfort without any other symptoms. Stromal bleeding has ceased. CT abdomen pelvis concerning for incarcerated hernia, general surgery consulted 05/02: Continued upper abdominal discomfort without nausea or emesis. Steady colostomy output. Willinitiate clear liquid diet and monitor. Case was discussed with primary surgery team [facility]: Recommended observation,conservative management with bowel regimen. Patient was reevaluated by general surgery today. Concern for developing obstructive symptoms, NGT placed. Patient advised transfer to [facility] at the earliest. Personally reachedout to [facility] surgery team. Awaiting callback and acceptance 05/03: Upper abdominal discomfort is improving. No further nausea or emesis. Low-volume colostomy output noted. Continue NGT, bowel rest and IV hydration pending transfer to [facility] 05/04: Abdominal discomfort improving. Steady colostomy output. Continue NG to LIS. Diet reintroduction, advancement per surgery. Awaiting transfer to [facility]: IP CONSULT TO CASE MANAGEMENT IP CONSULT TO WOUND/SKIN CARE TEAM IP CONSULT TO IV TEAM IP CONSULT TO IV TEAM IP CONSULT TO IV TEAM SUBJECTIVE: Patient is seen resting in bed, appears comfortable Wants NGT removed. No abdominal pain, no nausea or emesis. Eager to eat. Son at bedside updated ROS: History obtained from the patient- 12 point review of systems negative other than above OBJECTIVE: Temp (24hrs), Av.8 ??F (36.6 ??C), Min:97.3 ??F (36.3 ??C), Max:98.2 ??F (36.8 ??C) BP 119/73 (BP Location: Left arm, Patient Position (BP): Supine) Pulse (!) 107 Temp 97.7 ??F (36.5 ??C) (Temporal) Resp 17 Ht 5' 3 (1.6 m) Wt 103.8 kg (228 lb 13.4 oz) SpO2 98% BMI 40.54 kg/m?? Intake/Output Summary (Last 24 hours) at 05/04/2025 1127 Last data filed at 05/04/2025 0800 Gross per 24 hour Intake -- Output 1940 ml Net -1940 ml Last documented weight: Weight: 103.8 kg (228 lb 13.4 oz) (05/04/25 5109) EXAM: General: alert, in no distress, morbidly obese Neurologic: Grossly normal with generalized weakness. Incomplete paraplegia HEENT: atraumatic, Normocephalic, without obvious abnormality Lungs: clear to auscultation bilaterally, normal respiratory effort Heart: normal rate, regular rhythm, normal S1, S2, no murmurs, rubs, clicks or gallops Abdomen: Soft, non-tender. Left-sided colostomy, no bleeding at stoma site. Bowel sounds normal. Nom[place], no organomegaly. Extremities: extremities normal, atraumatic, no cyanosis or edema, intact distal pulses, moves all extremities equally, no edema, redness or tenderness in the calves or thighs, normal strength, normal tone Skin: negative for rash LABORATORY: Recent Labs 05/03/25 1523 05/04/25 0100 WBC 10.0 8.5 HGB 12.0 10.5* HCT 37.8 34.0* PLT 457* 433 Recent Labs 05/03/25 1523 05/04/25 0100 NA 133* 133* K 5.0 4.2 CL 97* 97* CO2 20* 22 CA 9.3 8.8 BUN 52* 51* CREAT 1.12* 1.20* GLUCOSE 102* 94 Recent Labs 05/03/25 1523 05/04/25 0100 TOTALPROTEIN 7.5 6.8 ALBUMIN 3.4* 2.9* BILITOTAL <0.2 0.2 ALKPHOS 224* 199* AST 43* 38* ALT 46* 41* No results for input(s): INR , PT in the last 72 hours. Invalid input(s): PTT No results for input(s): BASETROP , 2HRTROP , DELTA , 6HRTROP in the last 72 hours. Diagnostic testing reviewed by me: Medications were reviewed by me. Current Facility-Administered Medications: heparin injection 5,000 Units, 5,000 Units, subCUT, every 8 hours, Arielle Sosa MD sodium chloride 0.9 % infusion, , IV, continuous, Arielle Sosa MD, Last Rate: 75 mL/hr at 05/04/25 020, New Bag at 05/04/25 020 escitalopram oxalate (LEXAPRO) tablet 10 mg, 10 mg, Oral, daily, Arielle Sosa MD, 10 mg at1 0930 hydrOXYzine HCL (ATARAX) tablet 25 mg, 25 mg, Oral, every 6 hours PRN, Arielle Sosa MD sennosides-docusate sodium (SENNA-S) 8.6-50 mg per tablet 1 Tablet, 1 Tablet, Oral, BID, Arielle Sosa MD, 1 Tablet at 05/04/25 0930 polyethylene glycol (MIRALAX) packet 17 Gram, 17 Gram, Oral, daily, Lisa Omalley NP, 17 Gram at 05/04/25 0929 sodium chloride flush injection 10 mL, 10 mL, IV, every 12 hours (2 times daily), Goran Machuca DO, 10 mL at 05/04/25 0933 sodium chloride flush injection 10 mL, 10 mL, IV, see admin instructions, Goran Machuca DO sodium chloride 0.9 % flush bag 25 mL, 25 mL, IV, see admin instructions, Goran Machuca DO dextrose 5 % in water 250 mL flush bag 25 mL, 25 mL, IV, see admin instructions, Goran Machuca DO acetaminophen (TYLENOL) tablet 650 mg, 650 mg, Oral, every 6 hours PRN, Goran Machuca DO, 650 mg at 05/01/25 1015 naloxone (NARCAN) 0.4 mg/mL injection 0.1 mg, 0.1 mg, IV, see admin instructions, Goran Machuca DO ondansetron (ZOFRAN) 4 mg/2 mL injection 4 mg, 4 mg, IV, every 6 hours PRN, Goran Machuca DO, 4 mg at 05/02/25 1333 aluminum - magnesium - simethicone (MYLANTA) 200-200-20 mg/5 mL oral suspension 30 mL, 30 mL, Oral,every 2 hours PRN, Goran Machuca DO melatonin tablet 3 mg, 3 mg, Oral, at bedtime PRN, Goran Machuca DO, 3 mg at 05/04/25 0206 cefTRIAXone (ROCEPHIN) 2,000 mg in sodium chloride 0.9% 50 mL IVPB (MBP), 2,000 mg, IV, every 24 hours (daily), Arielle Sosa MD, Stopped at 05/04/25 0928 pantoprazole (PROTONIX) 40 mg in sodium chloride 0.9% 10 mL injection, 40 mg, IV, BID, Goran Machuca DO, 40 mg at 05/04/25 0859 ascorbic acid (vitamin C) (VITAMIN C) tablet 500 mg, 500 mg, Oral, daily, Arielle Sosa MD,500 mg at 05/04/25 0930 sodium chloride flush injection 10 mL, 10 mL, IV, BID, Goran Machuca DO, 10 mL at 05/04/25 0933 HYDROcodone-acetaminophen (NORCO) 5-325 mg per tablet 1 Tablet, 1 Tablet, Oral, every 6 hours PRN, Arielle Sosa MD, 1 Tablet at 05/02/25 1032 HYDROmorphone (PF) (DILAUDID) injection 0.3 mg, 0.3 mg, IV, every 2 hours PRN, Elba Small NP, 0.3 mg at 05/02/25 1909 Primary discharge diagnosis: Acute cystitis Other active medical issues also addressed during this admission: Active Hospital Problems Diagnosis Protein-calorie malnutrition, moderate Enterocolic fistula Colostomy status (CMS/HCC) Skin breakdown Acute cystitis Decubitus ulcer Irreducible intra-abdominal hernia MRSA colonization Complete paraplegia H/O deep venous thrombosis Morbid obesity due to excess calories Obstructive sleep apnea syndrome SBO (small bowel obstruction) Resolved Hospital Problems No resolved problems to display. ASSESSMENT AND PLAN: Acute cystitis Continue Telemetry Continue ceftriaxone pending culture and sensitivities Possible bleeding from ostomy Current output without signs of bleeding Monitor hemoglobin daily Incarcerated abdominal hernia CT Abdomen Pelvis: Possible incarcerated hernia. General surgery consulted NGT to LIS Continue IV Protonix Consulted surgery team: Following NGT placed and patient is being recommended for transfer to [facility]. Patient accepted for transfer, pending bed availability Enterocolic fistula Colostomy status (CMS/HCC) Skin breakdown Patient typically follows at [facility] in [place] Recently had TPN catheter removed Wound care Decubitus ulcer Wound care consulted- await evaluation H/O deep venous thrombosis Hold anticoagulation for now given concern for potential GI bleed Holding anticoagulation for any surgical procedure needs. Will resume when cleared by surgery Morbid obesity due to excess calories Completes all aspects of care Obstructive sleep apnea syndrome Nocturnal CPAP per home regimen Recent Labs 05/01/252005 GLUCPOC 102* DVT prevention: SCD Outpatient follow up: PCP Anticipated Disposition Location: Transfer to [facility] Timeframe: Able for transfer Criteria: Clinical improvement Education/DME/Equipment Needs: NA Patient's understanding of illness: Good Primary family contact: NA Code status: Full Code MDM complexity: [] Mild [x] Moderate [] High Care included, Preparing to see the patient, Obtaining and/or reviewing separately obtained history, Performing a medically appropriate examination and/or evaluation, Counseling and educating the patient/family/caregiver, Ordering medications, tests or procedures, Documenting clinical information in the medical record, Referring and communication with other health childcare aide (not separately reported), and Independently interpreting results and communicating results to the patient/family/caregiver (not separately reported). Arielle Sosa MD 05/04/2025, 11:27 AM * Gi Knutson RD - 05/04/2025 8:14 AM CDT The patient was evaluated by the dietitian and was found to have Malnutrition Nutrition Diagnosis: Moderate protein-calorie malnutrition (05/04/25799). The malnutrition pathway is recommended and the assessment via ASPEN criteria and nutrition recommendations from the dietitian are as follows: ASPEN Malnutrition Assessment and Findings Subcutaneous Fat Loss Assessment: Moderate fat loss (05/04/25799) Muscle Wasting Assessment: Mild (05/04/25799) Edema: Trace or slight contour changes (mild) (05/04/25799) Hand Tiler'S Assistant: Unable to assess (05/04/25799) Percentage of Energy: < or equal to 50% for > or equal to 5 days (severe-acute) (05/04/25799) Percentage of Weight Loss: >10% in 6 months (severe) (05/04/25799) Malnutrition Decision Malnutrition Nutrition Diagnosis: Moderate protein-calorie malnutrition (05/04/25799) BMI BMI (Calculated): (!) 40.55 (05/04/25 0458) Malnutrition Recommendations Nutrition Interventions: Monitor weight trends;Other (comment) (monitor need for nutrition support)(05/04/25799) Cosigned by Arielle Sosa MD at 05/04/2025 9:53 AM CDT * Gi Knutson, RD - 05/04/2025 8:08 AM CDT Reason For Nutrition Assessment: Pressure Ulcer/Skin, Nutrition Diagnosis Malnutrition Nutrition Diagnosis: Moderate protein-calorie malnutrition (05/04/25799) In the context of: Chronic Illness Problem: Malnutrition (05/04/25799) Etiology: Inadequate protein, energy, nutrient intake;Chronic illness;Altered GI function () Signs/Symptoms: Fat loss;Muscle wasting;Weight loss (05/04/25799) Malnutrition Impact: Reduced oral intake, Delayed recovery, Skin breakdown, Increased readmission risk, Increased hospitalization length, and Increased risk of infection Interventions/Recommendations: Monitor for need for nutrition support - prior hx of TPN If able to advance diet would recommend adding Conrad BID for PI Monitor weights Nutrition Interventions: Monitor weight trends;Other (comment) (monitor need for nutrition support)(05/04/25799) Goals: Address nutrition by day 5 NPO/clear liquids, No N/V, Stable weight, and Tolerate nutrition source Monitoring/Evaluation: Nutrition intake and tolerance, stool output, weight, labs, and skin integrity Nutrition Discharge Plan: TBD See below for full assessment Assessment 55 y.o.female admitted with Acute cystitis. PMH includes morbid obesity, paraplegia, history of DVT, SAVAGE, enterocolonic fistula, colostomy status. Subjective: Pt seen with family member present due to coccyx PI. Pt is currently NPO/Clears x 3 days, will monitor need for nutrition support. Pt is with prior hx of TPN and may need this resumed. Ptwith NGT, no output recorded at this time. Pt is noted with physical losses and recent significant wt loss; meets criteria for malnutrition. Noted pt awaiting transfer to [facility] will monitor for POC. Food and Nutrition Related History: Pt reporting last solid food intake several days ago. Noted perchart review pt was on TPN in March on a protein drink and clear liquid diet. Unclear when TPN stopped/solid diet was started. Pt was very sad at RD visit and wanted to either be transferred to [facility] today or would go home . Hx somewhat limited due to pt's current mental state. Pt denying changes in ostomy ouptut/fistula output, denies N/V. Noted stool output recorded at ~720mL with additional 50mL for colostomy. Weight changes: Noted per chart review pt weighed 260lbs in September 2024. Pt reporting UBW of ~250lbspt has lost ~32lbs (-12.3%) x 7 months which is significant. Subjective Global Assessment: Weight: During the past 2 weeks the patient's weight has: Decreased (05/04/25799) Food Intake: Compared to normal intake, over the past month the patient's intake has been: Less than usual (05/04/25799) Less than usual: Little solid food (05/04/25799) Symptoms: Patient reports the following problems that have kept them from eating enough during the past 2 weeks: Other (comment) (on liquids/npo x 3 days) (05/04/25799) Activities & Function: Over the past month the patient generally rates their activity as: : Lowenergy but in bed or chair less than half the day (05/04/25799) Total score = SGA Score : 7 (05/04/25799) Nutrition Focused Exam Physical Findings- Summary: Malnutrition Nutrition Diagnosis: Moderate protein-calorie malnutrition (05/04/25799) Orbital: Flattened fat pads but not depressed (mild) (05/04/25799) Facial cheeks (buccal pads): Full, round, filled out (no findings) (05/04/25799) Biceps and triceps: Some space between fingers (moderate) (05/04/25799) Ribs - lower back, mid axillary line: Unable to assess (05/04/25799) Subcutaneous Fat Loss Assessment: Moderate fat loss (05/04/25799) Temporal: See/feel well defined muscles (no findings) (05/04/25799) Clavicle: May be visible but not prominent (no findings) (05/04/25799) Shoulder (deltoid muscle): Shoulders rounded but acromion process may protrude slightly (mild) (05/04/25799) Scapula: Unable to assess (05/04/25799) Interosseous: Muscle bulges (no findings) (05/04/25799) Thigh (quadriceps muscle): Not able to reduce. Well rounded, no depressions (no findings) () Knee: Muscle protrudes, bone not prominent (no findings) (05/04/25799) Calf (gastrocnemius muscle): Slight flattening to muscle but remains firm (mild) (05/04/25799) Muscle Wasting Assessment: Mild (05/04/25799) Edema: Trace or slight contour changes (mild) (05/04/25799) Hand Tiler'S Assistant: Unable to assess (05/04/25799) Percentage of Energy: < or equal to 50% for > or equal to 5 days (severe-acute) (05/04/25799) Percentage of Weight Loss: >10% in 6 months (severe) (05/04/25799) Estimated Needs: Estimated Energy Target: 3898-8327 (05/04/25799) Estimated Protein Target: 90-110 (05/04/25799) Estimated Fluid Target : 1950 (05/04/25799) Nutrition Energy Formula: Calories per kilogram (05/04/25799) Weight Used for Formula: Adjusted body weight (65kg) (05/04/25799) Clinical Data: Height: 5' 3 (160 cm) (05/04/25457) [place] body weight: 52.4 kg (115 lb 8.3 oz) Adjusted ideal body weight: 73 kg (160 lb 13.6 oz) Body mass index is 40.54 kg/m??. Admission:Weight: 91.6 kg (202 lb) (05/01/25221) Weight Method: Actual (05/01/25221) Current:Weight: 103.8 kg (228 lb 13.4 oz) (05/04/25457) Wt Readings from Last 8 Encounters: 05/04/25 103.8 kg (228 lb 13.4 oz) Labs Recent Labs 05/01/25 0852 05/03/25 1523 05/04/25 0100 GLUCOSE 133* 102* 94 BUN 62* 52* 51* CREAT 1.14* 1.12* 1.20* GFR 56* 57* 53* NA 132* 133* 133* K 4.9 5.0 4.2 CO2 24 20* 22 ANIONGAP 12 16 14 CA 8.5* 9.3 8.8 MG 2.4 -- -- PO4 4.1 -- -- ALBUMIN 3.0* 3.4* 2.9* ALKPHOS 137* 224* 199* ALT 34 46* 41* AST 32 43* 38* BILITOTAL <0.2 <0.2 0.2 Lab Results Component Value Date/Time PO4 4.1 05/01/2025 08:52 AM MG 2.4 05/01/2025 08:52 AM Current Diet and Intake: DIET NPO Ice Chips, Food/Meal: Lunch (05/02/25 1232), , Skin: Wound 05/01/25 lower;Left abdomen Other (Comment)-Drainage Characteristics/Odor: brown;fecal (05/03/251949) Wound 05/01/25 lower;Left abdomen Other (Comment)-Drainage Amount: moderate (05/03/251949) Wound Left;upper;outer abdomen Other (Comment)-Dressing Appearance: dry;intact (05/03/251949) Wound 05/01/25 coccyx Pressure Injury-Dressing Appearance: intact (05/03/251949) Mauriiso Score: 11 (05/03/251949) Gastrointestinal: Last Bowel Movement (mm/dd/yyyy): 05/04/25 (05/04/25 025) Stool Consistency - Reference [place] Stool Chart: liquid - (type 7) (05/04/25251) Bowel Sounds: All Quadrants: hyperactive (05/03/25 0740) Allergies: Allergies Allergen Reactions Penicillins Unknown Tramadol Unknown Past Medical History: Diagnosis Date Aggressive periodontitis, localized MRSA colonization 10/26/2015 Sepsis, unspecified ([facility]) Time spent:Consultation Time (mins): 30 mins (05/04/25 0800) * Maureen Fong, Occupational Therapist - 05/03/2025 11:50 AM CDT Attempted to see patient for OT evaluation. Upon chart review and discussion with patient, Pt is paraplegic, has a kyrie lift at home for transfers if needed, uses a motorized wheelchair for ambulation, and receives assistance from family for all ADL and IADL tasks at baseline. Pt reports no concerns with BUE and BUE ROM is WFL. Will discontinue with attempts for evaluation/to establish plan of care as Pt is near her baseline and there is no need for skilled OT services regarding ADL tasks at this time. Thank you, MAUREEN FONG Occupational Therapist * Arielle Sosa MD - 05/03/2025 11:28 AM CDT Images from the original note were not included. Your life is our life's work [facility] Hospitalist/[facility] Medicine Progress Note LOS: 1 day Room/Bed: 3257/01 Patient name: Jami Gandhi Date of : 1970 HOSPITAL COURSE SUMMARY: Jami Gandhi is a 55 y.o. female with known morbid obesity, paraplegia, history of DVT, SAVAGE, enterocolonic fistula, colostomy status who is being admitted for further evaluation of possible bleeding from colostomy site, UTI. Patient presents a direct mission from [facility] for a higher level of care. She was initially admitted over there due to concerns of possible GI bleeding. Her hemoglobin remained stable around 12.9. She also has skin breakdown around her colostomy site. She has continuallyleakage from her enterocolonic fistula site as well. She complains of diffuse abdominal pain which is chronic for her but she states is worse over the past few days compared to her baseline. She denies associate fevers or chills. She does have a decubitus ulcer which is chronic per patient/not new.[facility] ab pelvis performed 04/22/2025 by report was negative. This was not sent with patient and her discharge paperwork. Her initial labs showed leukocytosis 12.15 which had decreased down to 10 after 48 hours of admission at [facility]. Her initial hemoglobin was 12.5 and remained stable during her stay there. She was initially in renal failure with creatinine of 1.6 which returned down to 1.3 prior to discharge with IV fluids. UA was concerning for UTI with WBC count of 50, 3+ bacteria. Urine cultures were not sent with patient. She also initially had a hyperkalemia with potassium of 5.8 which also resolved. Given patient's complaint of abdominal pain will repeat CT abdomen pelvis. Will order wound care for the patient's ostomy site as well as decubitus ulcerations. Will monitor kidney function and potassium closely. Will continue patient on IV Rocephin for potential UTI. Decubitus ulcer does not currently appear infected. Will monitor hemoglobin closely; currently will defer GI consultation due to no significant signs of bleeding. 05/01: Continued epigastric abdominal discomfort without any other symptoms. Stromal bleeding has ceased. CT abdomen pelvis concerning for incarcerated hernia, general surgery consulted 05/02: Continued upper abdominal discomfort without nausea or emesis. Steady colostomy output. Willinitiate clear liquid diet and monitor. Case was discussed with primary surgery team [facility]: Recommended observation,conservative management with bowel regimen. Patient was reevaluated by general surgery today. Concern for developing obstructive symptoms, NGT placed. Patient advised transfer to [facility] at the earliest. Personally reachedout to [facility] surgery team. Awaiting callback and acceptance 05/03: Upper abdominal discomfort is improving. No further nausea or emesis. Low-volume colostomy output noted. Continue NGT, bowel rest and IV hydration pending transfer to [facility] Consultants: IP CONSULT TO CASE MANAGEMENT IP CONSULT TO WOUND/SKIN CARE TEAM IP CONSULT TO IV TEAM IP CONSULT TO IV TEAM SUBJECTIVE: Patient is seen resting in bed, appears comfortable Wants NGT removed. Upper abdominal discomfort is improving. No nausea or emesis. Eager to eat. Son at bedside updated ROS: History obtained from the patient- 12 point review of systems negative other than above OBJECTIVE: Temp (24hrs), Av.7 ??F (36.5 ??C), Min:96.8 ??F (36 ??C), Max:98.9 ??F (37.2 ??C) BP 120/78 (BP Location: Left arm, Patient Position (BP): Supine) Pulse (!) 110 Temp 97.7 ??F (36.5 ??C) (Temporal) Resp 17 Ht 5' 3 (1.6 m) Wt 105.5 kg (232 lb 9.4 oz) SpO2 96% BMI 41.20 kg/m?? Intake/Output Summary (Last 24 hours) at 05/03/2025 1128 Last data filed at 05/03/2025 1019 Gross per 24 hour Intake -- Output 900 ml Net -900 ml Last documented weight: Weight: 105.5 kg (232 lb 9.4 oz) (05/02/25 0427) EXAM: General: alert, in no distress, morbidly obese Neurologic: Grossly normal with generalized weakness. Incomplete paraplegia HEENT: atraumatic, Normocephalic, without obvious abnormality Lungs: clear to auscultation bilaterally, normal respiratory effort Heart: normal rate, regular rhythm, normal S1, S2, no murmurs, rubs, clicks or gallops Abdomen: Soft, non-tender. Left-sided colostomy, no bleeding at stoma site. Bowel sounds normal. [place], no organomegaly. Extremities: extremities normal, atraumatic, no cyanosis or edema, intact distal pulses, moves all extremities equally, no edema, redness or tenderness in the calves or thighs, normal strength, normal tone Skin: negative for rash LABORATORY: Recent Labs 05/01/25 0852 WBC 7.8 HGB 9.9* HCT 31.0* PLT 353 Recent Labs 05/01/25 0852 NA 132* K 4.9 CL 96* CO2 24 CA 8.5* BUN 62* CREAT 1.14* GLUCOSE 133* Recent Labs 05/01/25 0852 TOTALPROTEIN 6.7 ALBUMIN 3.0* BILITOTAL <0.2 ALKPHOS 137* AST 32 ALT 34 No results for input(s): INR , PT in the last 72 hours. Invalid input(s): PTT No results for input(s): BASETROP , 2HRTROP , DELTA , 6HRTROP in the last 72 hours. Diagnostic testing reviewed by me: Medications were reviewed by me. Current Facility-Administered Medications: sennosides-docusate sodium (SENNA-S) 8.6-50 mg per tablet 1 Tablet, 1 Tablet, Oral, BID, Arielle Sosa MD, 1 Tablet at 05/03/25 0905 [] sodium chloride 0.9 % infusion, , IV, continuous, Lisa Omalley NP, Last Rate: 75 mL/hr at 05/02/25 1221, New Bag at 05/02/25 1221 polyethylene glycol (MIRALAX) packet 17 Gram, 17 Gram, Oral, daily, Lisa Omalley NP, 17 Gram at 05/03/25 0905 sodium chloride flush injection 10 mL, 10 mL, IV, every 12 hours (2 times daily), Goran Machuca DO, 10 mL at 05/03/25 0914 sodium chloride flush injection 10 mL, 10 mL, IV, see admin instructions, Goran Machuca DO sodium chloride 0.9 % flush bag 25 mL, 25 mL, IV, see admin instructions, Goran Machuca DO dextrose 5 % in water 250 mL flush bag 25 mL, 25 mL, IV, see admin instructions, Goran Machuca DO acetaminophen (TYLENOL) tablet 650 mg, 650 mg, Oral, every 6 hours PRN, Goran Machuca DO, 650 mg at 05/01/25 1015 naloxone (NARCAN) 0.4 mg/mL injection 0.1 mg, 0.1 mg, IV, see admin instructions, Goran Machuca DO ondansetron (ZOFRAN) 4 mg/2 mL injection 4 mg, 4 mg, IV, every 6 hours PRN, Goran Machuca DO, 4 mg at 05/02/25 1333 aluminum - magnesium - simethicone (MYLANTA) 200-200-20 mg/5 mL oral suspension 30 mL, 30 mL, Oral,every 2 hours PRN, Goran Machuca DO melatonin tablet 3 mg, 3 mg, Oral, at bedtime PRN, Goran Machuca DO cefTRIAXone (ROCEPHIN) 2,000 mg in sodium chloride 0.9% 50 mL IVPB (MBP), 2,000 mg, IV, every 24 hours (daily), Goran Machuca DO, Stopped at 05/03/25 0925 pantoprazole (PROTONIX) 40 mg in sodium chloride 0.9% 10 mL injection, 40 mg, IV, BID, Goran Machuca DO, 40 mg at 05/03/25 0845 ascorbic acid (vitamin C) (VITAMIN C) tablet 500 mg, 500 mg, Oral, daily, Arielle Sosa MD,500 mg at 05/03/25 0905 sodium chloride flush injection 10 mL, 10 mL, IV, BID, Goran Machuca DO, 10 mL at 05/03/25 0915 HYDROcodone-acetaminophen (NORCO) 5-325 mg per tablet 1 Tablet, 1 Tablet, Oral, every 6 hours PRN, Arielle Sosa MD, 1 Tablet at 05/02/25 1032 HYDROmorphone (PF) (DILAUDID) injection 0.3 mg, 0.3 mg, IV, every 2 hours PRN, Elba Small NP, 0.3 mg at 05/02/25 1909 Primary discharge diagnosis: Acute cystitis Other active medical issues also addressed during this admission: Active Hospital Problems Diagnosis Enterocolic fistula Colostomy status (CMS/HCC) Skin breakdown Acute cystitis Decubitus ulcer Irreducible intra-abdominal hernia MRSA colonization Complete paraplegia H/O deep venous thrombosis Morbid obesity due to excess calories Obstructive sleep apnea syndrome SBO (small bowel obstruction) Resolved Hospital Problems No resolved problems to display. ASSESSMENT AND PLAN: Acute cystitis Continue Telemetry Continue ceftriaxone pending culture and sensitivities Possible bleeding from ostomy Current output without signs of bleeding Monitor hemoglobin daily Incarcerated abdominal hernia CT Abdomen Pelvis: Possible incarcerated hernia. General surgery consulted Continue IV Protonix Consulted surgery team: Following NGT placed and patient is being recommended for transfer to [facility]. Patient accepted for transfer, pending bed availability Enterocolic fistula Colostomy status (CMS/HCC) Skin breakdown Patient typically follows at [facility] in [place] Recently had TPN catheter removed Wound care Decubitus ulcer Wound care consulted- await evaluation H/O deep venous thrombosis Hold anticoagulation for now given concern for potential GI bleed Will restart anticoagulation when able Morbid obesity due to excess calories Completes all aspects of care Obstructive sleep apnea syndrome Nocturnal CPAP per home regimen Recent Labs 05/01/25 2006 GLUCPOC 102* DVT prevention: SCD Outpatient follow up: PCP Anticipated Disposition Location: Transfer to [facility] Timeframe: Able for transfer Criteria: Clinical improvement Education/DME/Equipment Needs: NA Patient's understanding of illness: Good Primary family contact: NA Code status: Full Code MDM complexity: [] Mild [x] Moderate [] High Care included, Preparing to see the patient, Obtaining and/or reviewing separately obtained history, Performing a medically appropriate examination and/or evaluation, Counseling and educating the patient/family/caregiver, Ordering medications, tests or procedures, Documenting clinical information in the medical record, Referring and communication with other health childcare aide (not separately reported), and Independently interpreting results and communicating results to the patient/family/caregiver (not separately reported). Arielle Sosa MD 05/03/2025, 11:28 AM * Godwin Ceballos LPN - 05/02/2025 8:30 PM CDT Patient refusing turns including bathing due to severe pain. Patient is agreeable and cooperative to care as long as it does not make her pain worse. Moving patient from room [facility] to [facility], whichhas a ceiling lift, in order to provide access to sacrum for wound care and cleaning. Patient skin on and around hernia is pink and warm. Peristalsis visibly noted through the skin withfluid actively draining into ostomy bag. * Rema Mccormack RN - 05/02/2025 3:01 PM CDT This RN received a call from [facility]. Patient has been accepted to the general surgery floor. All questions for chart review answered. Will await bed assignment once one becomesavailable * Amol Wong Physical Therapist - 05/02/2025 11:46 AM CDT [facility] - Therapy Services Ph. Acute Physical Therapy Evaluation 05/02/2025 Room: [address] [place] [address] Name: Jami Gandhi Age: 55 y.o. Date of : 1970 Insurance: Payor: [employer] MEDICARE ADVANTAGE / Plan: [facility] DUAL COMPLETE [facility] [id number] / Product Type: HMO / Patient Class: Observation Onset of illness/injury or date of surgery: 05/01/2025 Subjective Information/History Subjective Information Provided By: Patient Prior level of Function: patient states that she lives alone and is modified independent using a wheelchair for mobility as patient is wheelchair bound. Patient does not drive and receives help form adult children to complete ADLs and IADLs Patient does not report a history of falls Home Environment: 1-Story home Number of Outside Stairs: 0 Available Adaptive Equipment: Wheelchair - manual Assistance available: patient is cared for by her adult children who take shifts carring for her and assist her with transfers. Patient/Family Goals Statement: patient would like to return to [facility] Pain: Refer to Doc Flowsheet for documented pain levels. Consent To Treatment Given By: Patient and Nurse Safety Awareness Orientation: Person, Place, Date, and Situation Command Following: good Safety Awareness: Good Precautions Patient Precautions: Fall Risk and Isolation Bracing/Orthotics: none Weight Bearing: No Restrictions Objective Information/Examination Muscle Tone: Not Tested Coordination: Not Tested Sensation: Not Tested ROM: Right UE: not formally tested, patient demonstrated adequate ROM for functional tasks Left UE: not formally tested, patient demonstrated adequate ROM for functional tasks Right LE: Not assessed: patient is paraplegic Left LE: Not assessed: patient is paraplegic Strength: Right UE: Not formally manually muscle tested, patient demonstrated adequate strength for functional tasks Left UE: Not formally manually muscle tested, patient demonstrated adequate strength for functionaltasks Right LE: Not tested due to patient is paraplegic Left LE: Not tested due to patient is paraplegic Functional Mobility: Rolling: minimal assistance for management of LE, patient uses bed rails Scooting: moderate assistance to scoot up in bed Gait Training: Did not perform due to patient is paraplegic Patient required verbal cues energy conservation and proper techniques for ADL's and functional transfers Vitals Patient on room air Vital signs stable throughout session [facility] Basic Mobility How much help from another person does the patient currently need? Score 1. Turning from your back to your side while in a flat bed without using bedrails? 3 - A little (supervision to min assist) 2. Moving from lying on your back to sitting on the side of a flat bed without using bedrails? 2 - A lot (max to mod assist) 3. Moving to and from a bed to a chair (including a wheelchair)? 2 - A lot (max to mod assist) 4. Standing up from a chair using your arms (e.g., wheelchair, or bedside chair)? 1 - Total assist or cannot do at all 5. Walking in hospital room? 1 - Total assist or cannot do at all 6. Climbing 3-5 steps with a railing? 1 - Total assist or cannot do at all Total score 04/30 0-16 - indicates likely facility discharge 17-24 indicates likely community discharge * scores determined based on patient report, observation or professional expertise Assessment/Plan Jami Gandhi is a 55 y.o. female is referred for physical therapy. Based on objective findings above, the patient presents with the following impairments: decreased activity tolerance, medical complexity, pain, and risk for falls which impacts safe discharge to home. Patient is currently functioning below her prior level of function. Patient was started on clear liquid diet which increased abdominal pain that prevented evaluation of patient's ability to sit at EOB or transfer. PT assisted nursing in changing patient bedding to evaluate patient mobility. Plan will include but is not limited to: Transfer Training, Patient/Family Education, Home & Safety Instruction, Strain Reduction Education, Balance Training, ROM, ADL Training, Wheelchair Mobility, Equipment Training, and Functional Strengthening. Specific focus for next treatment session: perform more advanced bed mobility and attempt slide board transfer if patient is able. PT Evaluation: low complexity Recommendations During acute hospitalization, recommend medium frequency treatment (3-5 times per week). Current plan of care to continue until goals met or patient discharges from facility. Functional Prognosis: Based on prior level of function and deficits, anticipate fair recovery. Based on PT assessment of and/or progress with physical function, AM-PAC Basic Mobility score, available home support, and participation in therapeutic intervention, anticipated discharge dispositiononce medically ready: [facility] facility (05/02/25 1032). Pt needs daily (weekday) skilled PT services. Anticipate tolerance for an intensive program may be limited and extended recovery time needed. * The final discharge location is determined through physician, case management, and patient/caregiver input along with insurance authorization of skilled services when appropriate Plan of care and/or discharge recommendations shared with: Patient, Supervisor Photocomposition, and Nurse PT Recommended DME: No new DME recommended (05/02/25 1032). Daily activity recommendations: Up with 2 assist Recommendations for referral to another service: Care Management Education/Training Provided Education provided: discharge planning, functional mobility, plan of care, proper body mechanics, rehabilitation principles, and safety Learner, method of education, and response to learning listed in Education tab in Epic. Disposition At start of session, patient found lying in bed At end of session, patient left lying in bed, call light in reach, patient instructed to not get upwithout assistance from staff, and nurse present in room Current Diagnoses/Past Medical History Pertinent diagnoses and past medical history related to this hospital stay are present in physicianH&P and physician daily notes. Prior to PT session a thorough chart review was completed including prior PT notes as applicable. Further treatment notes and therapeutic goals can be found in Care Plan Notes. If the patient discharges from the facility before another therapy visit, this shall serve as the therapy discharge summary. Thank you for this referral, Amol Wong, Physical Therapist * Lisa Omalley NP - 05/02/2025 10:45 AM CDT Images from the original note were not included. General Surgery progress Note Jami Gandhi 1970 CSN: [id number] 05/02/2025 Subjective: Consult for: SBO, parastomal hernia, fistula This is a 55 y.o. female with recent admission to outlying facility for evaluation of bleeding fromcolostomy site. Her hemoglobin remained stable at that facility. She has skin breakdown around her colostomy site and constant leaking from enterocolonic fistula. Patient has chronic abdominal pain, but this has worsened in the past few days. Denies fever or chills. Decubitus ulcer on sacrum is chronic. Of note, patient has been on TPN for her fistula and this was discontinued last Saturday. Shewas tolerating diet at that time. Patient unsure about outputs from fistula and ostomy, does reportthat fistula tends to put out more than her ostomy. Patient has had multiple abdominal surgeries at [facility], [facility], and [facility]. She follows with the surgical group at [facility]. Her ostomy was originally created in 2007, fistula first occurred this year. She also has an area on her left abdominal wall that had a necrotic wound that was debrided at [facility]. On admission here, white count is 7.8. Lactic is 0.9. Hemoglobin is 9.9. Creatinine is 1.14. Hyponatremic at 132. Patient CT AP reveals left lower abdominal wall defect containing small bowel and distal colon. There is decompression of bowel exiting the hernia. No free air or fluid. 05/01- consulted. Place NG and rec transfer to [facility] for management. 05/02- diet advanced to [facility] this morning by primary team and patient not tolerating. 02/14 pain, nausea and near vomiting. Some ileostomy and fistula output but abdomen remains painful on exam Past Medical History: Diagnosis Date Aggressive periodontitis, localized MRSA colonization 10/26/2015 Sepsis, unspecified ([facility]) No past surgical history on file. Facility-Administered Medications as of 05/02/2025 Medication Dose Frequency Provider Last Rate Last Admin sennosides-docusate sodium (SENNA-S) 8.6-50 mg per tablet 1 Tablet 1 Tablet BID Arielle Sosa MD 1 Tablet at 05/02/25 1032 sodium chloride flush injection 10 mL 10 mL every 12 hours (2 times daily) Goran Machuca DO 10mL at 05/02/25 1033 sodium chloride flush injection 10 mL 10 mL see admin instructions Goran Machuca DO sodium chloride 0.9 % flush bag 25 mL 25 mL see admin instructions Goran Machuca DO dextrose 5 % in water 250 mL flush bag 25 mL 25 mL see admin instructions Goran Machuca DO acetaminophen (TYLENOL) tablet 650 mg 650 mg every 6 hours PRN Goran Machuca DO 650 mg at 05/01/25 1015 naloxone (NARCAN) 0.4 mg/mL injection 0.1 mg 0.1 mg see admin instructions Goran Machuca DO ondansetron (ZOFRAN) 4 mg/2 mL injection 4 mg 4 mg every 6 hours PRN Goran Machuca DO 4 mg at 05/01/25 1617 aluminum - magnesium - simethicone (MYLANTA) 200-200-20 mg/5 mL oral suspension 30 mL 30 mL every 2hours PRN Goran Machuca DO melatonin tablet 3 mg 3 mg at bedtime PRN Gorna Machuca DO [] sodium chloride 0.9 % infusion continuous Arielle Sosa MD 75 mL/hr at 05/01/25 1531 New Bag at 05/01/25 1531 cefTRIAXone (ROCEPHIN) 2,000 mg in sodium chloride 0.9% 50 mL IVPB (MBP) 2,000 mg every 24 hours (daily) Goran Machuca DO 118 mL/hr at 05/02/25 1041 2,000 mg at 05/02/25 1041 pantoprazole (PROTONIX) 40 mg in sodium chloride 0.9% 10 mL injection 40 mg BID Goran Machuca DO 40 mg at 05/02/25 1032 ascorbic acid (vitamin C) (VITAMIN C) tablet 500 mg 500 mg daily Arielle Sosa MD 500 mg at1 1032 [COMPLETED] iopamidoL (ISOVUE-300) 61% injection (drawn from multi-use bulk pack) 100 mL 100 mL intra-proc ONE time Goran Machuca DO 100 mL at 05/01/25 1224 sodium chloride flush injection 10 mL 10 mL BID Goran Machuca DO 10 mL at 05/02/25 1033 HYDROcodone-acetaminophen (NORCO) 5-325 mg per tablet 1 Tablet 1 Tablet every 6 hours PRN Arielle Soas MD 1 Tablet at 05/02/25 1032 HYDROmorphone (PF) (DILAUDID) injection 0.3 mg 0.3 mg every 2 hours PRN Elba Small NP0.3 mg at 05/02/25 0004 Allergies Allergen Reactions Penicillins Unknown Tramadol Unknown Social History Tobacco Use Smoking status: Unknown Smokeless tobacco: Not on file Substance Use Topics Alcohol use: Never No family history on file. Review of Systems Except as listed above, all other systems were reviewed and are negative. Objective: BP 107/55 (BP Location: Left arm, Patient Position (BP): Supine) Pulse 93 Temp 97.2 ??F (36.2 ??C) (Temporal) Resp 14 Ht 5' 3 (1.6 m) Wt 105.5 kg (232 lb 9.4 oz) SpO2 99% BMI 41.20 kg/m?? General appearance: mild distress 2/2 nausea and pain Neck: supple, symmetrical, trachea midline Lungs: normal effort Heart: RRR Abdomen: Distended, generalized tenderness without peritoneal signs. Large parastomal hernia on left. This has become more tender over the last few days. Previous debridement of skin. There is liquidand stool output from fistula. Small amount of stool output from ostomy. Urostomy also in place. Extremities: extremities normal, atraumatic, no cyanosis or edema, moves all extremities equally Skin: Skin color, texture, turgor normal. Decubitus ulcer without signs of infection. Neurologic: Grossly normal Sacral decubitus ulcer: Data Review: CBC: Recent Labs 05/01/25 0852 WBC 7.8 HGB 9.9* HCT 31.0* PLT 353 MCV 91.7 BMP: Recent Labs 05/01/25 0852 GLUCOSE 133* BUN 62* CREAT 1.14* NA 132* K 4.9 CL 96* CO2 24 ANIONGAP 12 MG 2.4 PO4 4.1 LFTs: Recent Labs 05/01/25 0852 ALKPHOS 137* ALT 34 AST 32 BILITOTAL <0.2 ALBUMIN 3.0* Coagulation: No results for input(s): PT , INR , APTT in the last 72 hours. ABGs: No results for input(s): PH , PCO2 , PO2 , HCO3 , BASEEXCESS , SO2 in the last [address] 05/01 ABDOMEN/PELVIS: Lower thorax demonstrates no acute findings. Normal size liver. Smooth hepatic contour. No concerning hepatic lesions. Mild hepatic steatosis. The gallbladder is surgically absent. No biliary ductal dilatation or choledocholithiasis. Portal venous system is well-opacified. Pancreas is unremarkable. No pancreatic ductal dilatation, mass or inflammation. Spleen is unremarkable. Bilateral adrenal glands are unremarkable. There is a suprapubic catheter in place as normal hyperdense material within the lumen of the bladder which represents some retained contrast there is a previous contrast demonstration. Indwelling catheters forming within the decompressed bladder. There is mild bilateral hydronephrosis, greater on the right, with diffuse mild mural tibial thickening without evidence of popliteal nephritis. There is contrast material collecting systems are visualized calculi with evaluation degraded by presence of contrast. No visualized cortical lesions. Uterus appears surgically absent. Bilateral adnexa unremarkable. There are multiple clips in the left lower quadrant mesentery in the central mesentery of the lower abdomen. Aorta is normal in caliber. IVC unremarkable. Is an IVC filter in place. No pathologically enlarged lymph nodes. There is diastases anterior abdominal wall midline with wide neck defect measuring 1.3 cm containing portion transverse colon and small bowel without incarceration change. There is moderate partial colectomy with ostomy left lateral abdominal wall. There is additional large defect in left lateral abdominal wall just represent a large parastomal hernia measuring 7.2 cm which contains small bowel and distal colon with pathologic dilatation of small bowel within the hernia sac measuring 4.3 cm, the small bowel is not fully included with the point transition suspected along left lateral aspect of the hernia sac (series 3 image 200). There is some mild stranding in the mesentery just about the visualized pneumatosis or portal venous gas. The more distal small bowel exiting the hernia sac is completely decompressed. Body wall demonstrates no acute findings. No acute osseous findings. IMPRESSION: 1. Features consistent with previous partial colectomy with ostomy of the left lower quadrant. There appears to be either a large parastomal hernia or a large defect in the left lower abdominal wall which contains a large portion of small bowel and distal colon. There is pathologic dilatation of small bowel within the hernia sac with suggested point transition lung lateral aspect of the hernia sac with complete decompression of the exiting small bowel suspicious for incarcerated hernia with resultant small bowel obstruction. 2. Correlation is recommended suprapubic Landeros catheter in place with decompression of the urinary bladder. Mild urothelial thickening of bilateral ureters which can represent sequela ureteritis, correlation with urinalysis is recommended. No evidence of pyelonephritis. Imaging studies and labs personally reviewed. Assessment: Principal Problem: Acute cystitis Active Problems: SBO (small bowel obstruction) Morbid obesity due to excess calories Obstructive sleep apnea syndrome H/O deep venous thrombosis Complete paraplegia MRSA colonization Enterocolic fistula Colostomy status (CMS/HCC) Skin breakdown Decubitus ulcer Irreducible intra-abdominal hernia Plan: Abdominal wall hernia, irreducible, with SBO -We recommended an NG be placed, this was never placed. - Recommended NPO but CLD was started this morning with subsequent nausea, near vomiting and 8/10 pain - Recommended transfer to [facility] but RN reports no transfer plans at this time based on apparent discussion with [facility] and primary team. - Given ongoing pain and apparent no diet tolerance, recommend placing the NG today, making NPO (okfor occasional ice chips) and moving forward with transfer to [place]. At this point, she likely hasa partial SBO as she's having some ostomy output but is still having significant pain. If she progresses to have a complete obstruction, this would need to be treated as an urgent/emergent surgery which is not the time to be trying to arrange a transfer. - Again discussed her surgical complexity is not something we will electively operate on here, any operation here would be done as a life saving measure. She verbalized understanding and is agreeablewith the above plan. - Could consider SBFT, but as NG was not placed yesterday, I would not plan for SBFT until her bowel has been adequately decompressed for 12-24 hours. - restart IVF while NPO We will follow while inpatient, but again recommend transfer given her ongoing pain and surgical complexity. Lisa Omalley NP Cosigned by Perri Young MD at 05/02/2025 11:23 AM CDT * Arielle Sosa MD - 05/02/2025 9:43 AM CDT Images from the original note were not included. Your life is our life's work [facility] Hospitalist/Hospital Medicine Progress Note LOS: 1 day Room/Bed: 3265/01 Patient name: Jami Gandhi Date of : 1970 HOSPITAL COURSE SUMMARY: Jami Gandhi is a 55 y.o. female with known morbid obesity, paraplegia, history of DVT, SAVAGE, enterocolonic fistula, colostomy status who is being admitted for further evaluation of possible bleeding from colostomy site, UTI. Patient presents a direct mission from [facility] for a higher level of care. She was initially admitted over there due to concerns of possible GI bleeding. Her hemoglobin remained stable around 12.9. She also has skin breakdown around her colostomy site. She has continuallyleakage from her enterocolonic fistula site as well. She complains of diffuse abdominal pain which is chronic for her but she states is worse over the past few days compared to her baseline. She denies associate fevers or chills. She does have a decubitus ulcer which is chronic per patient/not new.She was on Flagyl/ciprofloxacin at [facility] for this. CT ab pelvis performed 04/22/2025 by report was negative. This was not sent with patient and her discharge paperwork. Her initial labs showed leukocytosis 12.15 which had decreased down to 10 after 48 hours of admission at [facility]. Her initial hemoglobin was 12.5 and remained stable during her stay there. She was initially in renal failure with creatinine of 1.6 which returned down to 1.3 prior to discharge with IV fluids. UA was concerning for UTI with WBC count of 50, 3+ bacteria. Urine cultures were not sent with patient. She also initially had a hyperkalemia with potassium of 5.8 which also resolved. Given patient's complaint of abdominal pain will repeat CT abdomen pelvis. Will order wound care for the patient's ostomy site as well as decubitus ulcerations. Will monitor kidney function and potassium closely. Will continue patient on IV Rocephin for potential UTI. Decubitus ulcer does not currently appear infected. Will monitor hemoglobin closely; currently will defer GI consultation due to no significant signs of bleeding. 05/01: Continued epigastric abdominal discomfort without any other symptoms. Stromal bleeding has ceased. CT abdomen pelvis concerning for incarcerated hernia, general surgery consulted 05/02: Continued upper abdominal discomfort without nausea or emesis. Steady colostomy output. Willinitiate clear liquid diet and monitor. Case was discussed with primary surgery team [facility]: Recommended observation,conservative management with bowel regimen. Patient was reevaluated by general surgery today. Concern for developing obstructive symptoms, NGT placed. Patient advised transfer to [facility] at the earliest. Personally [facility] to [facility] surgery team. Awaiting callback and acceptance Consultants: IP CONSULT TO CASE MANAGEMENT IP CONSULT TO WOUND/SKIN CARE TEAM IP CONSULT TO IV TEAM IP CONSULT TO IV TEAM SUBJECTIVE: Patient is seen resting in bed, appears comfortable Endorsing continued epigastric abdominal discomfort. No nausea or emesis. Eager to eat. No family at bedside ROS: History obtained from the patient- 12 point review of systems negative other than above OBJECTIVE: Temp (24hrs), Av.8 ??F (36 ??C), Min:92 ??F (33.3 ??C), Max:98.5 ??F (36.9 ??C) BP 107/55 (BP Location: Left arm, Patient Position (BP): Supine) Pulse 93 Temp 97.2 ??F (36.2 ??C) (Temporal) Resp 14 Ht 5' 3 (1.6 m) Wt 105.5 kg (232 lb 9.4 oz) SpO2 99% BMI 41.20 kg/m?? Intake/Output Summary (Last 24 hours) at 05/02/2025 0943 Last data filed at 05/01/2025 1900 Gross per 24 hour Intake 250 ml Output 1150 ml Net -900 ml Last documented weight: Weight: 105.5 kg (232 lb 9.4 oz) (05/02/25 0427) EXAM: General: alert, in no distress, morbidly obese Neurologic: Grossly normal with generalized weakness. Incomplete paraplegia HEENT: atraumatic, Normocephalic, without obvious abnormality Lungs: clear to auscultation bilaterally, normal respiratory effort Heart: normal rate, regular rhythm, normal S1, S2, no murmurs, rubs, clicks or gallops Abdomen: Soft, non-tender. Left-sided colostomy, no bleeding at stoma site. Bowel sounds normal. Nomasses, no organomegaly. Extremities: extremities normal, atraumatic, no cyanosis or edema, intact distal pulses, moves all extremities equally, no edema, redness or tenderness in the calves or thighs, normal strength, normal tone Skin: negative for rash LABORATORY: Recent Labs 05/01/25 0852 WBC 7.8 HGB 9.9* HCT 31.0* PLT 353 Recent Labs 05/01/25 0852 NA 132* K 4.9 CL 96* CO2 24 CA 8.5* BUN 62* CREAT 1.14* GLUCOSE 133* Recent Labs 05/01/25 0852 TOTALPROTEIN 6.7 ALBUMIN 3.0* BILITOTAL <0.2 ALKPHOS 137* AST 32 ALT 34 No results for input(s): INR , PT in the last 72 hours. Invalid input(s): PTT No results for input(s): BASETROP , 2HRTROP , DELTA , 6HRTROP in the last 72 hours. Diagnostic testing reviewed by me: Medications were reviewed by me. Current Facility-Administered Medications: sodium chloride flush injection 10 mL, 10 mL, IV, every 12 hours (2 times daily), Goran Machuca DO, 10 mL at 05/01/25 2000 sodium chloride flush injection 10 mL, 10 mL, IV, see admin instructions, Goran Machuca DO sodium chloride 0.9 % flush bag 25 mL, 25 mL, IV, see admin instructions, Goran Machuca DO dextrose 5 % in water 250 mL flush bag 25 mL, 25 mL, IV, see admin instructions, Goran Machuca DO acetaminophen (TYLENOL) tablet 650 mg, 650 mg, Oral, every 6 hours PRN, Goran Machuca DO, 650 mg at 05/01/25 1015 naloxone (NARCAN) 0.4 mg/mL injection 0.1 mg, 0.1 mg, IV, see admin instructions, Goran Machuca DO ondansetron (ZOFRAN) 4 mg/2 mL injection 4 mg, 4 mg, IV, every 6 hours PRN, Goran Machuca DO, 4 mg at 05/01/25 1617 aluminum - magnesium - simethicone (MYLANTA) 200-200-20 mg/5 mL oral suspension 30 mL, 30 mL, Oral,every 2 hours PRN, Goran Machuca DO melatonin tablet 3 mg, 3 mg, Oral, at bedtime PRN, Goran Machuca DO sodium chloride 0.9 % infusion, , IV, continuous, Arielle Sosa MD, Last Rate: 75 mL/hr at 05/01/25 1531, New Bag at 05/01/25 1531 cefTRIAXone (ROCEPHIN) 2,000 mg in sodium chloride 0.9% 50 mL IVPB (MBP), 2,000 mg, IV, every 24 hours (daily), Goran Machuca DO, Stopped at 05/01/25 0413 pantoprazole (PROTONIX) 40 mg in sodium chloride 0.9% 10 mL injection, 40 mg, IV, BID, Goran Machuca DO, 40 mg at 05/01/251999 ascorbic acid (vitamin C) (VITAMIN C) tablet 500 mg, 500 mg, Oral, daily, Arielle Sosa MD,500 mg at 05/01/25 1015 [COMPLETED] iopamidoL (ISOVUE-300) 61% injection (drawn from multi-use bulk pack) 100 mL, 100 mL, IV, intra-proc ONE time, Goran Machuca DO, 100 mL at 05/01/25 1224 sodium chloride flush injection 10 mL, 10 mL, IV, BID, Goran Machuca DO, 10 mL at 05/01/251999 HYDROcodone-acetaminophen (NORCO) 5-325 mg per tablet 1 Tablet, 1 Tablet, Oral, every 6 hours PRN, Arielle Sosa MD HYDROmorphone (PF) (DILAUDID) injection 0.3 mg, 0.3 mg, IV, every 2 hours PRN, Elba Small NP, 0.3 mg at 05/02/25 0004 Primary discharge diagnosis: Acute cystitis Other active medical issues also addressed during this admission: Active Hospital Problems Diagnosis Enterocolic fistula Colostomy status ([facility]) Skin breakdown Acute cystitis Decubitus ulcer Irreducible intra-abdominal hernia MRSA colonization Complete paraplegia H/O deep venous thrombosis Morbid obesity due to excess calories Obstructive sleep apnea syndrome SBO (small bowel obstruction) Resolved Hospital Problems No resolved problems to display. ASSESSMENT AND PLAN: Acute cystitis Continue Telemetry Continue ceftriaxone pending culture and sensitivities Possible bleeding from ostomy Current output without signs of bleeding Monitor hemoglobin daily Incarcerated abdominal hernia CT Abdomen Pelvis: Possible incarcerated hernia. General surgery consulted Continue IV Protonix Consulted surgery team: Following Advance to clear liquids today. Per surgery note, poor p.o. tolerance. NGT placed and patient is being recommended for transfer to [facility]. Awaiting callback Enterocolic fistula Colostomy status ([facility]) Skin breakdown Patient typically follows at [facility] in [place] Recently had TPN catheter removed Wound care Decubitus ulcer Wound care consulted- await evaluation H/O deep venous thrombosis Hold anticoagulation for now given concern for potential GI bleed Will restart anticoagulation when able Morbid obesity due to excess calories Completes all aspects of care Obstructive sleep apnea syndrome Nocturnal CPAP per home regimen Recent Labs 05/01/25 2006 GLUCPOC 102* DVT prevention: SCD Outpatient follow up: PCP Anticipated Disposition Location: Home/ SNF Timeframe: 2-3 days Criteria: Clinical improvement Education/DME/Equipment Needs: NA Patient's understanding of illness: Good Primary family contact: NA Code status: Full Code MDM complexity: [] Mild [x] Moderate [] High Care included, Preparing to see the patient, Obtaining and/or reviewing separately obtained history, Performing a medically appropriate examination and/or evaluation, Counseling and educating the patient/family/caregiver, Ordering medications, tests or procedures, Documenting clinical information in the medical record, Referring and communication with other health childcare aide (not separately reported), and Independently interpreting results and communicating results to the patient/family/caregiver (not separately reported). Arielle Sosa MD 05/02/2025, 9:43 AM * Arielle Sosa MD - 05/01/2025 9:57 AM CDT Images from the original note were not included. Your life is our life's work [facility] Hospitalist/Hospital Medicine Progress Note LOS: 1 day Room/Bed: 6588/01 Patient name: Jami Gandhi Date of : 1970 HOSPITAL COURSE SUMMARY: Jami Gandhi is a 55 y.o. female with known morbid obesity, paraplegia, history of DVT, SAVAGE, enterocolonic fistula, colostomy status who is being admitted for further evaluation of possible bleeding from colostomy site, UTI. Patient presents a direct mission from [facility] for a higher level of care. She was initially admitted over there due to concerns of possible GI bleeding. Her hemoglobin remained stable around 12.9. She also has skin breakdown around her colostomy site. She has continuallyleakage from her enterocolonic fistula site as well. She complains of diffuse abdominal pain which is chronic for her but she states is worse over the past few days compared to her baseline. She denies associate fevers or chills. She does have a decubitus ulcer which is chronic per patient/not new.She was on Flagyl/ciprofloxacin at [facility] for this. CT ab pelvis performed 04/22/2025 by report was negative. This was not sent with patient and her discharge paperwork. Her initial labs showed leukocytosis 12.15 which had decreased down to 10 after 48 hours of admission at [facility]. Her initial hemoglobin was 12.5 and remained stable during her stay there. She was initially in renal failure with creatinine of 1.6 which returned down to 1.3 prior to discharge with IV fluids. UA was concerning for UTI with WBC count of 50, 3+ bacteria. Urine cultures were not sent with patient. She also initially had a hyperkalemia with potassium of 5.8 which also resolved. Given patient's complaint of abdominal pain will repeat CT abdomen pelvis. Will order wound care for the patient's ostomy site as well as decubitus ulcerations. Will monitor kidney function and potassium closely. Will continue patient on IV Rocephin for potential UTI. Decubitus ulcer does not currently appear infected. Will monitor hemoglobin closely; currently will defer GI consultation due to no significant signs of bleeding. 05/01: Continued epigastric abdominal discomfort without any other symptoms. Stromal bleeding has ceased. CT abdomen pelvis concerning for incarcerated hernia, general surgery consulted Consultants: IP CONSULT TO CASE MANAGEMENT IP CONSULT TO WOUND/SKIN CARE TEAM SUBJECTIVE: Patient is seen resting in bed, appears comfortable Endorsing continued epigastric abdominal discomfort. No nausea or emesis. Eager to eat. No family at bedside ROS: History obtained from the patient- 12 point review of systems negative other than above OBJECTIVE: Temp (24hrs), Av.6 ??F (36.4 ??C), Min:97.5 ??F (36.4 ??C), Max:97.6 ??F (36.4 ??C) BP 103/54 Pulse 89 Temp 97.6 ??F (36.4 ??C) (Oral) Resp 18 Ht 5' 3 (1.6 m) Wt 91.6 kg (202 lb) SpO2 97% BMI 35.78 kg/m?? No intake or output data in the 24 hours ending 05/01/25 0957 Last documented weight: Weight: 91.6 kg (202 lb) (05/01/25 0222) EXAM: General: alert, in no distress, morbidly obese Neurologic: Grossly normal with generalized weakness. Incomplete paraplegia HEENT: atraumatic, Normocephalic, without obvious abnormality Lungs: clear to auscultation bilaterally, normal respiratory effort Heart: normal rate, regular rhythm, normal S1, S2, no murmurs, rubs, clicks or gallops Abdomen: Soft, non-tender. Left-sided colostomy, no bleeding at stoma site. Bowel sounds normal. Nomasses, no organomegaly. Extremities: extremities normal, atraumatic, no cyanosis or edema, intact distal pulses, moves all extremities equally, no edema, redness or tenderness in the calves or thighs, normal strength, normal tone Skin: negative for rash LABORATORY: Recent Labs 05/01/25 0852 WBC 7.8 HGB 9.9* HCT 31.0* PLT 353 Recent Labs 05/01/25 0852 NA 132* K 4.9 CL 96* CO2 24 CA 8.5* BUN 62* CREAT 1.14* GLUCOSE 133* Recent Labs 05/01/25 0852 TOTALPROTEIN 6.7 ALBUMIN 3.0* BILITOTAL <0.2 ALKPHOS 137* AST 32 ALT 34 No results for input(s): INR , PT in the last 72 hours. Invalid input(s): PTT No results for input(s): BASETROP , 2HRTROP , DELTA , 6HRTROP in the last 72 hours. Diagnostic testing reviewed by me: Medications were reviewed by me. Current Facility-Administered Medications: sodium chloride flush injection 10 mL, 10 mL, IV, every 12 hours (2 times daily), Goran Machuca, sodium chloride flush injection 10 mL, 10 mL, IV, see admin instructions, Goran Machuca, sodium chloride 0.9 % flush bag 25 mL, 25 mL, IV, see admin instructions, Goran Machuca, dextrose 5 % in water 250 mL flush bag 25 mL, 25 mL, IV, see admin instructions, Goran Machuca,DO acetaminophen (TYLENOL) tablet 650 mg, 650 mg, Oral, every 6 hours PRN, Goran Machuca, naloxone (NARCAN) 0.4 mg/mL injection 0.1 mg, 0.1 mg, IV, see admin instructions, Goran Machuca DO ondansetron (ZOFRAN) 4 mg/2 mL injection 4 mg, 4 mg, IV, every 6 hours PRN, Goran Machuca DO aluminum - magnesium - simethicone (MYLANTA) 200-200-20 mg/5 mL oral suspension 30 mL, 30 mL, Oral,every 2 hours PRN, Goran Machuca DO melatonin tablet 3 mg, 3 mg, Oral, at bedtime PRN, Goran Machuca DO sodium chloride 0.9 % infusion, , IV, continuous, Gorna Machuca DO, Last Rate: 75 mL/hr at 05/01/25 0340, New Bag at 05/01/25 0340 cefTRIAXone (ROCEPHIN) 2,000 mg in sodium chloride 0.9% 50 mL IVPB (MBP), 2,000 mg, IV, every 24 hours (daily), Goran Machuca DO, Stopped at 05/01/25 0413 pantoprazole (PROTONIX) 40 mg in sodium chloride 0.9% 10 mL injection, 40 mg, IV, BID, Goran Machuca DO Primary discharge diagnosis: Acute cystitis Other active medical issues also addressed during this admission: Active Hospital Problems Diagnosis Enterocolic fistula Colostomy status (CMS/HCC) Skin breakdown Acute cystitis Decubitus ulcer MRSA colonization Complete paraplegia H/O deep venous thrombosis Morbid obesity due to excess calories Obstructive sleep apnea syndrome Resolved Hospital Problems No resolved problems to display. ASSESSMENT AND PLAN: Acute cystitis Continue Telemetry Continue ceftriaxone pending culture and sensitivities Possible bleeding from ostomy Current output without signs of bleeding Monitor hemoglobin daily CT Abdomen Pelvis: Possible incarcerated hernia. General surgery consulted Continue IV Protonix Enterocolic fistula Colostomy status (CMS/HCC) Skin breakdown Patient typically follows at [facility] in [place] Recently had TPN catheter removed Wound care Decubitus ulcer Wound care consulted- await evaluation H/O deep venous thrombosis Hold anticoagulation for now given concern for potential GI bleed Will restart anticoagulation when able Morbid obesity due to excess calories Completes all aspects of care Obstructive sleep apnea syndrome Nocturnal CPAP per home regimen No results for input(s): GLUCPOC in the last 72 hours. DVT prevention: SCD Outpatient follow up: PCP Anticipated Disposition Location: Home/ SNF Timeframe: 2-3 days Criteria: Clinical improvement Education/DME/Equipment Needs: NA Patient's understanding of illness: Good Primary family contact: NA Code status: Full Code MDM complexity: [] Mild [x] Moderate [] High Care included, Preparing to see the patient, Obtaining and/or reviewing separately obtained history, Performing a medically appropriate examination and/or evaluation, Counseling and educating the patient/family/caregiver, Ordering medications, tests or procedures, Documenting clinical information in the medical record, Referring and communication with other health childcare aide (not separately reported), and Independently interpreting results and communicating results to the patient/family/caregiver (not separately reported). Arielle Sosa MD 05/01/2025, 9:57 AM * Edwige Geronimo RN - 05/01/2025 4:18 AM CDTSummary: admission Open area with tunneling noted upon admission large abrasion area noted to left side on the outer side of the ostomy bags covered with meplex pictures on chart ostomy bags changed urostomy bag placedover fistula drainage site.. new colostomy bag placed as well. Room AIR FLUIDS HAVE BEEN started documented in this encounter H&P Notes * Goran Machuca DO - 05/01/2025 2:05 AM CDT Images from the original note were not included. [place], [place] HOSPITALIST HISTORY AND PHYSICAL Patient name: Jami Gandhi Date of : 1970 CSN number: [id number] PCP: Jose Bowers MD Chief Complaint: No chief complaint on file. History of present illness: Patient was seen and examined at the bedside. Jami Gandhi is a 55 y.o. female with known morbid obesity, paraplegia, history of DVT, SAVAGE, enterocolonic fistula, colostomy status who is being admitted for further evaluation of possible bleeding from colostomy site, UTI. Patient presents a direct mission from [facility] for a higher level of care. She was initially admitted over there due to concerns of possible GI bleeding. Her hemoglobin remained stable around 12.9. She also has skin breakdown around her colostomy site. She has continuallyleakage from her enterocolonic fistula site as well. She complains of diffuse abdominal pain which is chronic for her but she states is worse over the past few days compared to her baseline. She denies associate fevers or chills. She does have a decubitus ulcer which is chronic per patient/not new.She was on Flagyl/ciprofloxacin at [facility] for this. CT ab pelvis performed 04/22/2025 by report was negative. This was not sent with patient and her discharge paperwork. Her initial labs showed leukocytosis 12.15 which had decreased down to 10 after 48 hours of admission at [facility]. Her initial hemoglobin was 12.5 and remained stable during her stay there. She was initially in renal failure with creatinine of 1.6 which returned down to 1.3 prior to discharge with IV fluids. UA was concerning for UTI with WBC count of 50, 3+ bacteria. Urine cultures were not sent with patient. She also initially had a hyperkalemia with potassium of 5.8 which also resolved. Given patient's complaint of abdominal pain will repeat CT abdomen pelvis. Will order wound care for the patient's ostomy site as well as decubitus ulcerations. Will monitor kidney function and potassium closely. Will continue patient on IV Rocephin for potential UTI. Decubitus ulcer does not currently appear infected. Will monitor hemoglobin closely; currently will defer GI consultation due to no significant signs of bleeding. Review of Systems: Review of Systems Constitutional: Negative for chills and fever. HENT: Negative for ear pain, hearing loss and sinus pain. Eyes: Negative for blurred vision, double vision and photophobia. Respiratory: Negative for cough, sputum production, shortness of breath and wheezing. Cardiovascular: Negative for chest pain, palpitations, orthopnea and leg swelling. Gastrointestinal: Positive for abdominal pain and nausea. Negative for blood in stool and vomiting. Genitourinary: Positive for hematuria. Negative for dysuria and frequency. Musculoskeletal: Negative for back pain and myalgias. Skin: Positive for rash. Negative for itching. Neurological: Negative for tingling, seizures, weakness and headaches. Psychiatric/Behavioral: Negative for depression and suicidal ideas. Reviewed. Pertinent review of systems information is listed above under History of Present Illness. Medical History Allergies: Allergies Allergen Reactions Penicillins Unknown Tramadol Unknown Prior to Admission Medications Prior to Admission medications Medication Sig Start Date End Date Taking? Authorizing Provider ascorbic acid, vitamin C, (VITAMIN C) 500 mg tablet Take 500 mg by mouth daily. 10/28/15 Provider, Historical spironolactone (ALDACTONE) 25 mg tablet Take 25 mg by mouth 2 times daily. 10/28/15 Provider, Historical omeprazole (PriLOSEC) 20 mg Capsule, Delayed Release(E.C.) Take 20 mg by mouth daily. 10/28/15 Provider, Historical bimatoprost (LUMIGAN) 0.01 % solution Administer 1 Drop in both eyes daily at bedtime. 10/28/15 Provider, Historical methenamine hippurate (HIPREX) 1 gram Tablet Take 1 Gram by mouth 4 times daily With 500 mg of vitamin c . 10/28/15 Provider, Historical docusate sodium (COLACE) 100 mg capsule Take 200 mg by mouth 2 times daily as needed for Constipation. 10/28/15 Provider, Historical oxybutynin chloride (DITROPAN) 5 mg tablet Take 5 mg by mouth daily. 10/28/15 Provider, Historical potassium chloride (KLOR-CON) 10 mEq Extended Release tablet Take 10 mEq by mouth 2 times daily with meals. 10/28/15 Provider, Historical warfarin (COUMADIN) 7.5 mg tablet Take 7.5 mg by mouth every Saturday, and Saturday. 10/26/15 Provider, Historical Past Medical History: Past Medical History: Diagnosis Date Aggressive periodontitis, localized MRSA colonization 10/26/2015 Sepsis, unspecified ([facility]) Past Surgical History: No past surgical history on file. Family History: No family history on file. Reviewed and otherwise noncontributory to this encounter. Social History: Social History Tobacco Use Smoking status: Not on file Smokeless tobacco: Not on file Substance Use Topics Alcohol use: Not on file Physical Examination: Physical Exam Vitals and nursing note reviewed. Constitutional: Appearance: She is obese. She is ill-appearing. HENT: Head: Normocephalic and atraumatic. Mouth/Throat: Mouth: Mucous membranes are moist. Eyes: Extraocular Movements: Extraocular movements intact. Pupils: Pupils are equal, round, and reactive to light. Cardiovascular: Rate and Rhythm: Normal rate and regular rhythm. Pulmonary: Effort: Pulmonary effort is normal. Breath sounds: Normal breath sounds. Abdominal: General: Abdomen is flat. Bowel sounds are normal. Palpations: Abdomen is soft. Musculoskeletal: General: Normal range of motion. Cervical back: Normal range of motion and neck supple. Skin: General: Skin is warm. Capillary Refill: Capillary refill takes less than 2 seconds. Findings: Erythema present. Comments: Skin breakdown at ostomy site with no definitive signs of cellulitis; sacral decubitus ulcer shows excoriations but no current purulent discharge. Neurological: General: No focal deficit present. Mental Status: She is alert and oriented to person, place, and time. Mental status is at baseline. Psychiatric: Mood and Affect: Mood normal. Behavior: Behavior normal. Data Review: I have personally reviewed the following admitting data listed below and other admitting data that may not be listed below: I have personally seen, questioned and examined the patient at the bedside. I have personally reviewed the following laboratory results: CBC: No results for input(s): WBC , HGB , HCT , PLT in the last 72 hours. Metabolic profile: No results for input(s): NA , K , BUN , CREAT , CO2 , AST , ALT , BILITOTAL , ALKPHOS , TSH , AMYLASE , LIPASE in the last 72 hours. Invalid input(s): CLGLUCOSE , CALCIUM Coagulation: No results for input(s): PT , INR , APTT in the last 72 hours. Cardiac markers: No results found for: BASETROP , 2HRTROP , DELTA , 6HRTROP Other personal data review pertinent to the specific assessment can be found below. ASSESSMENT AND PLAN: Acute cystitis - Telemetry - UA personally reviewed and is consistent with a UTI - Check urine cultures; follow for de-escalation of antibiotics - Check lactic acid - Antibiotics with 2 g Rocephin Possible bleeding from ostomy - Current output without signs of bleeding - Monitor hemoglobin - Check CT ab pelvis given continued abdominal pain - IV Protonix - Defer GI consultation for now Enterocolic fistula Colostomy status (CMS/HCC) Skin breakdown - Patient typically follows at [facility] in [place] - Recently had TPN catheter removed - Wound care Decubitus ulcer - Wound care H/O deep venous thrombosis - Hold anticoagulation for now given concern for potential GI bleed - Restart anticoagulation when able Morbid obesity due to excess calories - Completes all aspects of care Obstructive sleep apnea syndrome Complete paraplegia - PT/OT CODE STATUS: Full DVT prophylaxis: Mechanical Diet: N.p.o. pending abdominal CT Disposition: This patient is admitted as inpatient. I anticipate that the patient will be hospitalized for 2 midnights orgreater, as outlined in my assessment and plan Total time doing chart review, seeing patient, discission making, discussing with other providers, indirect care as well as documentation 85 minutes. Medical Complexity high. Personally discussed patient care with ED providers and any other consulting providers. Patient in agreement with the assessment and plan. Patient is to follow up with Primary Care Provider/Specialists regarding the events leading to this admission, as well as the diagnoses, tests, treatments, recommendations, etc., from this admission, as well as previous medical history, and age andgender and symptom appropriate screening, immunizations, etc. Patient counseled by me regarding medical reasons for medical compliance, risks of non-compliance, and risks of leaving the hospital prior to completion of hospital evaluation and treatment, etc, including , permanent medical problems, loss of use of his limb, etc. Patient understands that specialist consultations, multiple tests, etc, are or may be in process, and/or planned, and patient will need to follow up final results andrecommendations, records, etc, with patient's outpatient Doctor/Primary Care Provider. All questions answered. Signed: Goran Machuca DO 05/01/2025, 2:05 AM This document was created by voice recognition software. A conscious effort has been made to improve accuracy of the belt loop maker. Any obvious errors or omissions should be clarified with the authorof this document. documented in this encounter Procedure Notes * Sumeet Yu RN - 05/02/2025 9:27 AM CDT VASCULAR ACCESS TEAM Lab collection PATIENT NAME: Jami Gandhi DATE OF : 1970 [facility]: [id number] DATE: 05/02/2025 Room: [address] [place] [address] Admit Date: 05/01/2025 Hospital day: LOS: 1 day [place]: Allergies Allergen Reactions Penicillins Unknown Tramadol Unknown Ultrasound Guided LAB COLLECTION Ultrasound assessment was performed to assess adequacy of vascular anatomy Adequate vessel was located Insertion site cleansed for 30 seconds with Chlora-prep. Site allowed to dry before ultrasound guided needle stick. Labs collected Yes 1 attempts 35 minutes required to complete procedure Addendum: Ordered lab specimens were obtained from the free port on her central line. 10 ml flush of NSS was administered into the port, a 10 ml blood was aspirated from said port and discarded and an additional 5 ml of blood was aspirated from the port and placed into the proper lab specimen tube which was immediately labeled and placed on ice for transport to the lab. Port was then flushed with20 ml of blood, clamped and capped with a CHG stericap. Sumeet Yu RN * Nicole Hewitt RN - 05/01/2025 7:02 PM CDT VASCULAR ACCESS TEAM Lab collection PATIENT NAME: Jami Gandhi DATE OF : 1970 CSN: [id number] DATE: 05/01/2025 Room: [address] [place] [address] Admit Date: 05/01/2025 Hospital day: LOS: 1 day [place]: Allergies Allergen Reactions Penicillins Unknown Tramadol Unknown Ultrasound Guided LAB COLLECTION Ultrasound assessment was performed to assess adequacy of vascular anatomy Adequate vessel was located Insertion site cleansed for 30 seconds with Chlora-prep. Site allowed to dry before ultrasound guided needle stick. Labs collected Yes Location: left, lower Arm 1 attempts 30 minutes required to complete procedure Nicole Hewitt RN documented in this encounter Consult Notes * Esther Christensen RN - 05/06/2025 11:24 AM CDT Images from the original note were not included. Ostomy Team Note Today's Date: 05/06/2025 Name: Jami Gandhi Date of : 1970 Date/time of admission: 05/01/2025 1:50 AM Hospital day: LOS: 4 days Room: [address] [place] [address] Patient Seen For: Education Troubleshooting Supply Needs Site Evaluation Colostomy 05/01/25 0000 (Active) Stoma Appearance red;moist 05/06/25899 Peristomal Skin intact w/o breakdown 05/06/25899 Appliance 2-piece;changed;per protocol 05/06/25899 Accessories/Skin Care skin barrier ring 05/06/25899 Stoma Function stool 05/06/25899 Output (mL) 50 mL 05/06/25899 Stool Color-Colostomy brown 05/06/25899 Stool Consistency-Colostomy soft 05/06/25899 Tolerance no signs/symptoms of discomfort 05/06/25899 Number of days: 5 Wound 05/01/25 lower;Left abdomen Other (Comment) (Active) Wound (WDL) WDL except 05/06/25899 Pictures Taken (Date) 05/06/25 05/06/25899 Wound Image 05/06/25899 Dressing Changed Date 05/06/25 05/06/25899 Drainage Characteristics/Odor brown;fecal 05/05/252111 Drainage Amount copious 05/06/25899 Wound Shape irregular 05/06/25899 Wound Base unable to visualize 05/06/25899 Periwound Area intact 05/06/25899 Wound Edges open 05/06/25899 Dressing Application Other (comment) 05/05/252111 Number of days: 5 Current products used Using 2 piece red flat with ring to fistula, yellow flat 2 piece with ring to colostomy Notes: Daughter does dressing changes at home. Patient took picture of appliance used, ordered more ostomyappliances from [facility], updated primary nurse. Time with patient: 25 minutes Esther Christensen RN Please call hospital handle rounder operator to have store team member paged with questions or needs. 82 * Tia Portillo RN - 05/04/2025 1:49 PM CDT Wound/Ostomy/Pressure Prevention [facility] Dressing Change Note Today's Date: 05/04/2025 CSN: [id number] Name: Jami Gandhi Age: 55 y.o. Date of : 1970 Room: [address] [place] [address] Appliances intact without leaking to fistula and ostomy. Wound Details Wound 05/01/25 lower;Left abdomen Other (Comment) (Active) Wound (WDL) WDL except 05/04/25 0420 Pictures Taken (Date) 05/01/25 05/02/25 103 Dressing Changed Date 05/01/25 05/01/25 1140 Drainage Characteristics/Odor brown;fecal 05/03/251949 Drainage Amount moderate 05/03/251949 Wound Shape oval 05/03/251949 Wound Base reddened 05/02/251029 Periwound Area redness 05/02/25 103 Wound Edges irregular 05/02/25 1030 Dressing Application Other (comment) 05/01/25 1140 ? Time with patient 30 minutes Tia Portillo, RN Please call hospital handle rounder operator to have store team member paged with questions or needs. 82 * José Chan, NISHANT - 05/04/2025 5:11 AM CDTAssociated Order(s): IP CONSULT TO IV TEAM VASCULAR ACCESS CONSULT PATIENT NAME: Jami Gandhi DATE OF : 1970 CSN: [id number] DATE: 05/04/2025 Room: [address] [place] [address] Admit Date: 05/01/2025 Hospital day: LOS: 2 days INDICATION: iv antibiotics and continuous fluids EXCLUSIONS/CONSIDERATIONS: patient has central line in right subclavian LAST RECORDED TEMP: Temp: 97.3 ??F (36.3 ??C) (05/04/25457)] Assessment Allergies Allergen Reactions Penicillins Unknown Tramadol Unknown Lab Results Component Value Date/Time CREAT 1.20 (H) 05/04/2025 01:00 AM BUN 51 (H) 05/04/2025 01:00 AM NA 133 (L) 05/04/2025 01:00 AM K 4.2 05/04/2025 01:00 AM CL 97 (L) 05/04/2025 01:00 AM CO2 22 05/04/2025 01:00 AM GFR 53 (L) 05/04/2025 01:00 AM Lab Results Component Value Date/Time WBC 8.5 05/04/2025 01:00 AM HGB 10.5 (L) 05/04/2025 01:00 AM HCT 34.0 (L) 05/04/2025 01:00 AM PLT 433 05/04/2025 01:00 AM MCV 95.2 05/04/2025 01:00 AM No results found for: INR , PT , PROTIMEPOC Past Medical History: Diagnosis Date Aggressive periodontitis, localized MRSA colonization 10/26/2015 Sepsis, unspecified ([facility]) No past surgical history on file. Current Facility-Administered Medications: sodium chloride 0.9 % infusion, , IV, continuous, Arielle Sosa MD, Last Rate: 75 mL/hr at 05/04/25200, New Bag at 05/04/25200 escitalopram oxalate (LEXAPRO) tablet 10 mg, 10 mg, Oral, daily, Arielle Sosa MD, 10 mg at1 2100 hydrOXYzine HCL (ATARAX) tablet 25 mg, 25 mg, Oral, every 6 hours PRN, Arielle Sosa MD sennosides-docusate sodium (SENNA-S) 8.6-50 mg per tablet 1 Tablet, 1 Tablet, Oral, BID, Arielle Sosa MD, 1 Tablet at 05/03/252049 [] sodium chloride 0.9 % infusion, , IV, continuous, Lisa Omalley NP, Stopped at 05/03/25 1114 polyethylene glycol (MIRALAX) packet 17 Gram, 17 Gram, Oral, daily, Lisa Omalley NP, 17 Gram at 05/03/25 0905 sodium chloride flush injection 10 mL, 10 mL, IV, every 12 hours (2 times daily), Goran Machuca DO, 10 mL at 05/03/252050 sodium chloride flush injection 10 mL, 10 mL, IV, see admin instructions, Goran Machuca DO sodium chloride 0.9 % flush bag 25 mL, 25 mL, IV, see admin instructions, Goran Machuca DO dextrose 5 % in water 250 mL flush bag 25 mL, 25 mL, IV, see admin instructions, Goran Machuca DO acetaminophen (TYLENOL) tablet 650 mg, 650 mg, Oral, every 6 hours PRN, Goran Machuca DO, 650 mg at 05/01/25 1015 naloxone (NARCAN) 0.4 mg/mL injection 0.1 mg, 0.1 mg, IV, see admin instructions, Goran Machuca DO ondansetron (ZOFRAN) 4 mg/2 mL injection 4 mg, 4 mg, IV, every 6 hours PRN, Goran Machuca DO, 4 mg at 05/02/25 1333 aluminum - magnesium - simethicone (MYLANTA) 200-200-20 mg/5 mL oral suspension 30 mL, 30 mL, Oral,every 2 hours PRN, Goran Machuca DO melatonin tablet 3 mg, 3 mg, Oral, at bedtime PRN, Goran Machuca DO, 3 mg at 05/04/25 0206 cefTRIAXone (ROCEPHIN) 2,000 mg in sodium chloride 0.9% 50 mL IVPB (MBP), 2,000 mg, IV, every 24 hours (daily), Goran Machuca DO, Stopped at 05/03/25 0925 pantoprazole (PROTONIX) 40 mg in sodium chloride 0.9% 10 mL injection, 40 mg, IV, BID, Goran Machuca DO, 40 mg at 05/03/25 205 ascorbic acid (vitamin C) (VITAMIN C) tablet 500 mg, 500 mg, Oral, daily, Arielle Sosa MD,500 mg at 05/03/25 0905 sodium chloride flush injection 10 mL, 10 mL, IV, BID, Goran Machuca DO, 10 mL at 05/03/25 205 HYDROcodone-acetaminophen (NORCO) 5-325 mg per tablet 1 Tablet, 1 Tablet, Oral, every 6 hours PRN, Arielle Sosa MD, 1 Tablet at 05/02/25 1032 HYDROmorphone (PF) (DILAUDID) injection 0.3 mg, 0.3 mg, IV, every 2 hours KARLEEN, Elba Small, RIKY, 0.3 mg at 05/02/25 3861 PLAN Assess patient for PIV access. Patient has central line. Primary RN reports no need for additional access at this time. José Chan RN * Tia Portillo RN - 05/03/2025 11:46 AM CDT Images from the original note were not included. Wound/Ostomy/Pressure Prevention [facility] Dressing Change Note Today's Date: 05/03/2025 CSN: [id number] Name: Jami Gandhi Age: 55 y.o. Date of : 1970 Room: [address] [place] [address] Wound Details Clear liquid and thick brown stool from fistula, minimal output from stoma. Patient has her home supplies, which are high output bags. Will not use patient's supplies at this time. Discussed with aid the need for frequent checks/emptying. Discussed with patient and family need tohelp monitor bags and possibly empty. Discussed with nurse that floor staff will need to change appliances with leaking. Placed stoma care orders in chart for supply reference. ? Time with patient: 30 minutes Tia Portillo RN Please call hospital handle rounder operator to have store team member paged with questions or needs. * Sumeet Yu RN - 05/02/2025 8:57 AM CDTAssociated Order(s): IP CONSULT TO IV TEAM VASCULAR ACCESS CONSULT PATIENT NAME: Jami Gandhi DATE OF : 1970 CSN: [id number] DATE: 05/02/2025 Room: [address] [place] [address] Admit Date: 05/01/2025 Hospital day: LOS: 1 day INDICATION: Difficult phlebotomy candidate. EXCLUSIONS/CONSIDERATIONS: Several attempts by lab personnel LAST RECORDED TEMP: Temp: 97.2 ??F (36.2 ??C) (05/02/25826)] Assessment Allergies Allergen Reactions Penicillins Unknown Tramadol Unknown Lab Results Component Value Date/Time CREAT 1.14 (H) 05/01/2025 08:52 AM BUN 62 (H) 05/01/2025 08:52 AM NA 132 (L) 05/01/2025 08:52 AM K 4.9 05/01/2025 08:52 AM CL 96 (L) 05/01/2025 08:52 AM CO2 24 05/01/2025 08:52 AM GFR 56 (L) 05/01/2025 08:52 AM Lab Results Component Value Date/Time WBC 7.8 05/01/2025 08:52 AM HGB 9.9 (L) 05/01/2025 08:52 AM HCT 31.0 (L) 05/01/2025 08:52 AM PLT 353 05/01/2025 08:52 AM MCV 91.7 05/01/2025 08:52 AM No results found for: INR , PT , PROTIMEPOC Past Medical History: Diagnosis Date Aggressive periodontitis, localized MRSA colonization 10/26/2015 Sepsis, unspecified ([facility]) No past surgical history on file. Current Facility-Administered Medications: sodium chloride flush injection 10 mL, 10 mL, IV, every 12 hours (2 times daily), Goran Machuca DO, 10 mL at 05/01/251999 sodium chloride flush injection 10 mL, 10 mL, IV, see admin instructions, Goran Machuca DO sodium chloride 0.9 % flush bag 25 mL, 25 mL, IV, see admin instructions, Goran Machuca DO dextrose 5 % in water 250 mL flush bag 25 mL, 25 mL, IV, see admin instructions, Goran Machuca DO acetaminophen (TYLENOL) tablet 650 mg, 650 mg, Oral, every 6 hours PRN, Goran Machuca DO, 650 mg at 05/01/25 1015 naloxone (NARCAN) 0.4 mg/mL injection 0.1 mg, 0.1 mg, IV, see admin instructions, Goran Machuca DO ondansetron (ZOFRAN) 4 mg/2 mL injection 4 mg, 4 mg, IV, every 6 hours PRN, Goran Machuca DO, 4 mg at 05/01/25 1617 aluminum - magnesium - simethicone (MYLANTA) 200-200-20 mg/5 mL oral suspension 30 mL, 30 mL, Oral,every 2 hours PRN, Goran Machuca DO melatonin tablet 3 mg, 3 mg, Oral, at bedtime PRN, Goran Machuca DO sodium chloride 0.9 % infusion, , IV, continuous, Arielle Sosa MD, Last Rate: 75 mL/hr at 05/01/25 1531, New Bag at 05/01/25 1531 cefTRIAXone (ROCEPHIN) 2,000 mg in sodium chloride 0.9% 50 mL IVPB (MBP), 2,000 mg, IV, every 24 hours (daily), Goran Machuca DO, Stopped at 05/01/25 0413 pantoprazole (PROTONIX) 40 mg in sodium chloride 0.9% 10 mL injection, 40 mg, IV, BID, Goran Machuca DO, 40 mg at 05/01/25 2000 ascorbic acid (vitamin C) (VITAMIN C) tablet 500 mg, 500 mg, Oral, daily, Arielle Sosa MD,500 mg at 05/01/25 1015 [COMPLETED] iopamidoL (ISOVUE-300) 61% injection (drawn from multi-use bulk pack) 100 mL, 100 mL, IV, intra-proc ONE time, Goran Machuca DO, 100 mL at 05/01/25 1224 sodium chloride flush injection 10 mL, 10 mL, IV, BID, Goran Machuca DO, 10 mL at 05/01/25 2000 HYDROcodone-acetaminophen (NORCO) 5-325 mg per tablet 1 Tablet, 1 Tablet, Oral, every 6 hours PRN, Arielle Sosa MD HYDROmorphone (PF) (DILAUDID) injection 0.3 mg, 0.3 mg, IV, every 2 hours PRN, Elba Small, RIKY, 0.3 mg at 05/02/25 0004 PLAN Assess pt for lab draw. Sumeet Yu RN * Anahy Arteaga RN - 05/01/2025 6:55 PM CDT Images from the original note were not included. Ostomy Team Note Today's Date: 05/01/2025 Name: Jami Gandhi Date of : 1970 Date/time of admission: 05/01/2025 1:50 AM Hospital day: LOS: 1 day Room: [address] [place] [address] Patient Seen For: Education Troubleshooting Supply Needs Site Evaluation Colostomy 05/01/25 0000 (Active) Stoma Appearance akutan appearance 05/01/25 1618 Peristomal Skin dry 05/01/25 1140 Appliance changed 05/01/25 1140 Accessories/Skin Care skin sealant;skin barrier ring;cleanse w/water only 05/01/25 1140 Stoma Function stool 05/01/25 1618 Stool Color-Colostomy light brown 05/01/25 1618 Stool Consistency-Colostomy soft 05/01/25 1618 Number of days: 0 Current products used Coloplast 1pc, melgisorb Ag to inner stoma, hydrocolloid, barrier ring. Notes:Per pt her stoma change and shift when the hernia started. At this time unsure if her stoma has stretched and flattened or if there is peristomal breakdown. Due to proximity to fistula will be difficult to maintain seal. Time with patient: Anahy Arteaga RN Please call hospital handle rounder operator to have store team member paged with questions or needs. 82 * Anahy Arteaga RN - 05/01/2025 6:47 PM CDT Images from the original note were not included. Ostomy Team Note Today's Date: 05/01/2025 Name: Jami Gandhi Date of : 1970 Date/time of admission: 05/01/2025 1:50 AM Hospital day: LOS: 1 day Room: [address] [place] [address] Patient Seen For: Education Troubleshooting Supply Needs Site Evaluation Wound 05/01/25 lower;Left abdomen Other (Comment) (Active) Fistula Wound (WDL) WDL except 05/01/25 1140 Pictures Taken (Date) 05/01/25 05/01/25 1140 Dressing Changed Date 05/01/25 05/01/25 1140 Drainage Characteristics/Odor brown;fecal 05/01/25 1140 Drainage Amount moderate 05/01/25 1140 Wound Shape round 05/01/25 1140 Wound Base unable to visualize 05/01/25 1140 Periwound Area redness 05/01/25 1140 Dressing Application Other (comment) 05/01/25 1140 Number of days: 0 Current products used Coloplast pediatric (star barrier) and urostomy bag, ring Notes: Per pt fistula developed earlier this year. Pts children care for it at home. Due to close proximity to the stoma will be difficult to maintain seal. At this time do not recommend attaching bag to a landeros due to thick sediment blocking the tubing. Time with patient: Anahy Arteaga RN Please call hospital handle rounder operator to have store team member paged with questions or needs. 82 * Nicole Hewitt RN - 05/01/2025 6:45 PM CDTAssociated Order(s): IP CONSULT TO IV TEAM VASCULAR ACCESS CONSULT PATIENT NAME: Jami Gandhi DATE OF : 1970 [facility]: [id number] DATE: 05/01/2025 Room: [address] [place] [address] Admit Date: 05/01/2025 Hospital day: LOS: 1 day INDICATION: Lab tried 4 times for lab draw EXCLUSIONS/CONSIDERATIONS: patient history of hardstick LAST RECORDED TEMP: Temp: 98.5 ??F (36.9 ??C) (05/01/25 1516)] Assessment Allergies Allergen Reactions Penicillins Unknown Tramadol Unknown Lab Results Component Value Date/Time CREAT 1.14 (H) 05/01/2025 08:52 AM BUN 62 (H) 05/01/2025 08:52 AM NA 132 (L) 05/01/2025 08:52 AM K 4.9 05/01/2025 08:52 AM CL 96 (L) 05/01/2025 08:52 AM CO2 24 05/01/2025 08:52 AM GFR 56 (L) 05/01/2025 08:52 AM Lab Results Component Value Date/Time WBC 7.8 05/01/2025 08:52 AM HGB 9.9 (L) 05/01/2025 08:52 AM HCT 31.0 (L) 05/01/2025 08:52 AM PLT 353 05/01/2025 08:52 AM MCV 91.7 05/01/2025 08:52 AM No results found for: INR , PT , PROTIMEPOC Past Medical History: Diagnosis Date Aggressive periodontitis, localized MRSA colonization 10/26/2015 Sepsis, unspecified ([facility]) No past surgical history on file. Current Facility-Administered Medications: sodium chloride flush injection 10 mL, 10 mL, IV, every 12 hours (2 times daily), Goran Machuca DO, 10 mL at 05/01/25 1015 sodium chloride flush injection 10 mL, 10 mL, IV, see admin instructions, Goran Machuca DO sodium chloride 0.9 % flush bag 25 mL, 25 mL, IV, see admin instructions, Goran Machuca DO dextrose 5 % in water 250 mL flush bag 25 mL, 25 mL, IV, see admin instructions, Goran Machuca DO acetaminophen (TYLENOL) tablet 650 mg, 650 mg, Oral, every 6 hours PRN, Goran Machuca DO, 650 mg at 05/01/25 1015 naloxone (NARCAN) 0.4 mg/mL injection 0.1 mg, 0.1 mg, IV, see admin instructions, Goran Machuca DO ondansetron (ZOFRAN) 4 mg/2 mL injection 4 mg, 4 mg, IV, every 6 hours PRN, Goran Machuca DO, 4 mg at 05/01/25 1617 aluminum - magnesium - simethicone (MYLANTA) 200-200-20 mg/5 mL oral suspension 30 mL, 30 mL, Oral,every 2 hours PRN, Goran Machuca DO melatonin tablet 3 mg, 3 mg, Oral, at bedtime PRN, Goran Machuca DO sodium chloride 0.9 % infusion, , IV, continuous, Arielle Sosa MD, Last Rate: 75 mL/hr at 05/01/25 1531, New Bag at 05/01/25 1531 cefTRIAXone (ROCEPHIN) 2,000 mg in sodium chloride 0.9% 50 mL IVPB (MBP), 2,000 mg, IV, every 24 hours (daily), Goran Machuca DO, Stopped at 05/01/25 0413 pantoprazole (PROTONIX) 40 mg in sodium chloride 0.9% 10 mL injection, 40 mg, IV, BID, Goran Machuca DO, 40 mg at 05/01/25 1015 ascorbic acid (vitamin C) (VITAMIN C) tablet 500 mg, 500 mg, Oral, daily, Arielle Sosa MD,500 mg at 05/01/25 1015 [COMPLETED] iopamidoL (ISOVUE-300) 61% injection (drawn from multi-use bulk pack) 100 mL, 100 mL, IV, intra-proc ONE time, Goran Machuca DO, 100 mL at 05/01/25 1224 sodium chloride flush injection 10 mL, 10 mL, IV, BID, Goran Machuca DO, 10 mL at 05/01/25 1620 HYDROcodone-acetaminophen (NORCO) 5-325 mg per tablet 1 Tablet, 1 Tablet, Oral, every 6 hours PRN, Arielle Sosa MD HYDROmorphone (PF) (DILAUDID) injection 0.3 mg, 0.3 mg, IV, every 2 hours PRN, Elba Small NP, 0.3 mg at 05/01/25 1618 PLAN Plan to draw labs. Nicole Hewitt RN * Anahy Arteaga RN - 05/01/2025 6:42 PM CDTAssociated Order(s): IP CONSULT TO WOUND/SKIN CARE TEAM Images from the original note were not included. Skin/Wound/Ulcer/Pressure Injury Consult [facility] Patient Information Today's Date: 05/01/2025 Name: Jami Gandhi Age: 55 y.o. Date of : 1970 CSN: [id number] Date/time of admission: 05/01/2025 1:50 AM Hospital day: LOS: 1 day Room: [address] [place] [address] Physical Assessment Wound Details: Wound Left;upper;outer abdomen Other (Comment) (Active) Wound (WDL) WDL except 05/01/25 1140 Pictures Taken (Date) 05/01/25 05/01/25 1140 Dressing Changed Date 05/01/25 05/01/25 1140 Wound Shape oval 05/01/25 1140 Wound Base moist;pink 05/01/25 114 Periwound Area pink 05/01/25 1140 Wound Edges open 05/01/25 1140 Wound Care: Cleansed w/ normal saline 05/01/25 1140 Dressing Application silicone border dressing;silver impregnated dressing 05/01/25 1140 Wound Left;inner;midline abdomen Burn (Active) Wound (WDL) WDL except 05/01/25 1140 Pictures Taken (Date) 05/01/25 05/01/25 1140 Dressing Changed Date 05/01/25 05/01/25 1140 Wound Shape oval 05/01/25 1140 Wound Care: Cleansed w/ normal saline 05/01/25 1140 Dressing Application silicone border dressing 05/01/25 1140 Wound 05/01/25 coccyx Pressure Injury (Active) present on admission Wound (WDL) WDL except 05/01/25 1140 Pictures Taken (Date) 05/01/25 05/01/25 1140 Dressing Changed Date 05/01/25 05/01/25 1140 Wound Shape irregular 05/01/25 1140 Wound Base beefy red;bone;moist;pink;reddened 05/01/25 1140 Periwound Area pink;redness;satellite lesions 05/01/25 1140 Wound Edges open 05/01/25 1140 Pressure Injury Stage 4 05/01/25 114 Dressing Application rolled gauze;ABD pad;tape-medipore;wet-to-dry dressing 05/01/25 114 Wound 05/01/25 Bilateral;posterior thigh Atypical Abrasion (Active) Wound (WDL) WDL except 05/01/25 114 Pictures Taken (Date) 05/01/25 05/01/25 114 Wound Shape irregular 05/01/25 114 Wound Base reddened;pink;scabbed 05/01/25 114 Periwound Area satellite lesions 05/01/25 114 Wound Edges irregular 05/01/25 114 Topical Agent other (comment) 05/01/25 114 L lower abd- multiple wounds as listed above, fistula, and stoma Mattress/surface type: Oxymat Change surface area to: [place] NOTES: Focused skin assessment per consult order. Pt denies any other skin concerns. Nutrition BMI: Body mass index is 35.78 kg/m??. Current diet order: DIET NPO Strict Pressure Injury Prevention Recommendations Turn / reposition at minimum of every 2 hours or more frequently as determined by patient condition When in chair reposition at minimum every 1 hour or more frequently as determined by patient Condition Keep skin clean and free of excess moisture Frequent perineal care for excess moisture and with any soiling Protect and float heels when in bed --as condition allows HOB at lowest level tolerated by patient and medical condition. Do not massage bony prominences. Prevent shearing by utilizing lift sheets and appropriate lift equipment based on patient needs. Skin Assessment every shift ? Wound/Dressing Recommendations Recommendations: Coccyx- Moisten gauze with Vashe and wring out excess. Lighty pack wound bed and cover with dry dressing. Change BID. Gluteal/thigh-Wash with soap and water, pat dry. Apply Desitin 13% (SPD) BID and PRN as needed. L outer abd- L inner abd- Cleanse wound with normal saline and pat dry. Apply Mepilex Ag (SPD) to open wound, cover with Mepilex border. Change every 3 days and PRN per soiling. Primary nurse and Dr. Sosa notified of findings and recommendations. Skin team will not follow general wounds. Pressure injuries to be followed weekly unless otherwise specified. Will need to be re-consulted for new skin concerns. Total time spent: 45 min. Anahy Arteaga RN Skin/Wound/Ostomy Please call hospital handle rounder operator to have skin team paged with questions or needs. 82 * Elba Small NP - 05/01/2025 3:05 PM CDT Images from the original note were not included. General Surgery Consult Note Jami Gandhi 1970 CSN: [id number] 05/01/2025 Subjective: Consult for: SBO, parastomal hernia, fistula This is a 55 y.o. female with recent admission to outlying facility for evaluation of bleeding fromcolostomy site. Her hemoglobin remained stable at that facility. She has skin breakdown around her colostomy site and constant leaking from enterocolonic fistula. Patient has chronic abdominal pain, but this has worsened in the past few days. Denies fever or chills. Decubitus ulcer on sacrum is chronic. Of note, patient has been on TPN for her fistula and this was discontinued last Saturday. Shewas tolerating diet at that time. Patient unsure about outputs from fistula and ostomy, does reportthat fistula tends to put out more than her ostomy. Patient has had multiple abdominal surgeries at [facility], [facility], and [facility]. She follows with the surgical group at [facility]. Her ostomy was originally created in 2007, fistula first occurred this year. She also has an area on her left abdominal wall that had a necrotic wound that was debrided at [facility]. On admission here, white count is 7.8. Lactic is 0.9. Hemoglobin is 9.9. Creatinine is 1.14. Hyponatremic at 132. Patient CT AP reveals left lower abdominal wall defect containing small bowel and distal colon. There is decompression of bowel exiting the hernia. No free air or fluid. Past Medical History: Diagnosis Date Aggressive periodontitis, localized MRSA colonization 10/26/2015 Sepsis, unspecified ([facility]) No past surgical history on file. Facility-Administered Medications as of 05/01/2025 Medication Dose Frequency Provider Last Rate Last Admin sodium chloride flush injection 10 mL 10 mL every 12 hours (2 times daily) Goran Machuca DO 10mL at 05/01/25 1015 sodium chloride flush injection 10 mL 10 mL see admin instructions Goran Machuca DO sodium chloride 0.9 % flush bag 25 mL 25 mL see admin instructions Goarn Machuca DO dextrose 5 % in water 250 mL flush bag 25 mL 25 mL see admin instructions Goran Machuca DO acetaminophen (TYLENOL) tablet 650 mg 650 mg every 6 hours PRN Goran Machuca DO 650 mg at 05/01/25 1015 naloxone (NARCAN) 0.4 mg/mL injection 0.1 mg 0.1 mg see admin instructions Goran Machuca DO ondansetron (ZOFRAN) 4 mg/2 mL injection 4 mg 4 mg every 6 hours PRN Goran Machuca DO aluminum - magnesium - simethicone (MYLANTA) 200-200-20 mg/5 mL oral suspension 30 mL 30 mL every 2hours PRN Goran Machuca DO melatonin tablet 3 mg 3 mg at bedtime PRN Goran Machuca DO sodium chloride 0.9 % infusion continuous Arielle Sosa MD 75 mL/hr at 05/01/25 0340 New Bag at 05/01/25 0340 cefTRIAXone (ROCEPHIN) 2,000 mg in sodium chloride 0.9% 50 mL IVPB (MBP) 2,000 mg every 24 hours (daily) Goran Machuca DO Stopped at 05/01/25 0413 pantoprazole (PROTONIX) 40 mg in sodium chloride 0.9% 10 mL injection 40 mg BID Goran Machuca DO 40 mg at 05/01/25 1015 ascorbic acid (vitamin C) (VITAMIN C) tablet 500 mg 500 mg daily Arielle Sosa MD 500 mg at1 1015 [COMPLETED] iopamidoL (ISOVUE-300) 61% injection (drawn from multi-use bulk pack) 100 mL 100 mL intra-proc ONE time Goran Machuca DO 100 mL at 05/01/25 1224 sodium chloride flush injection 10 mL 10 mL BID Goran Machuca DO 10 mL at 05/01/25 1224 HYDROcodone-acetaminophen (NORCO) 5-325 mg per tablet 1 Tablet 1 Tablet every 6 hours KARLEEN Arielle Sosa MD Allergies Allergen Reactions Penicillins Unknown Tramadol Unknown Social History Tobacco Use Smoking status: Not on file Smokeless tobacco: Not on file Substance Use Topics Alcohol use: Not on file No family history on file. Review of Systems Except as listed above, all other systems were reviewed and are negative. Objective: BP (!) 87/54 (BP Location: Left arm, Patient Position (BP): Supine) Pulse 92 Temp 98.5 ??F (36.9 ??C) (Temporal) Resp 18 Ht 5' 3 (1.6 m) Wt 91.6 kg (202 lb) SpO2 96% BMI 35.78 kg/m?? General appearance: alert, in no distress Neck: supple, symmetrical, trachea midline Lungs: normal respiratory effort Heart: regular rate and rhythm Abdomen: Distended, generalized tenderness without peritoneal signs. Large parastomal hernia on left. This has become more tender over the last few days. Previous debridement of skin. There is liquidand stool output from fistula. Small amount of stool output from ostomy. Urostomy also in place. Extremities: extremities normal, atraumatic, no cyanosis or edema, moves all extremities equally Skin: Skin color, texture, turgor normal. Decubitus ulcer without signs of infection. Neurologic: Grossly normal Sacral decubitus ulcer: Data Review: CBC: Recent Labs 05/01/25 0852 WBC 7.8 HGB 9.9* HCT 31.0* PLT 353 MCV 91.7 BMP: Recent Labs 05/01/25 0852 GLUCOSE 133* BUN 62* CREAT 1.14* NA 132* K 4.9 CL 96* CO2 24 ANIONGAP 12 MG 2.4 PO4 4.1 LFTs: Recent Labs 05/01/25 0852 ALKPHOS 137* ALT 34 AST 32 BILITOTAL <0.2 ALBUMIN 3.0* Coagulation: No results for input(s): PT , INR , APTT in the last 72 hours. ABGs: No results for input(s): PH , PCO2 , PO2 , HCO3 , BASEEXCESS , SO2 in the last [address] 05/01 ABDOMEN/PELVIS: Lower thorax demonstrates no acute findings. Normal size liver. Smooth hepatic contour. No concerning hepatic lesions. Mild hepatic steatosis. The gallbladder is surgically absent. No biliary ductal dilatation or choledocholithiasis. Portal venous system is well-opacified. Pancreas is unremarkable. No pancreatic ductal dilatation, mass or inflammation. Spleen is unremarkable. Bilateral adrenal glands are unremarkable. There is a suprapubic catheter in place as normal hyperdense material within the lumen of the bladder which represents some retained contrast there is a previous contrast demonstration. Indwelling catheters forming within the decompressed bladder. There is mild bilateral hydronephrosis, greater on the right, with diffuse mild mural tibial thickening without evidence of popliteal nephritis. There is contrast material collecting systems are visualized calculi with evaluation degraded by presence of contrast. No visualized cortical lesions. Uterus appears surgically absent. Bilateral adnexa unremarkable. There are multiple clips in the left lower quadrant mesentery in the central mesentery of the lower abdomen. Aorta is normal in caliber. IVC unremarkable. Is an IVC filter in place. No pathologically enlarged lymph nodes. There is diastases anterior abdominal wall midline with wide neck defect measuring 1.3 cm containing portion transverse colon and small bowel without incarceration change. There is moderate partial colectomy with ostomy left lateral abdominal wall. There is additional large defect in left lateral abdominal wall just represent a large parastomal hernia measuring 7.2 cm which contains small bowel and distal colon with pathologic dilatation of small bowel within the hernia sac measuring 4.3 cm, the small bowel is not fully included with the point transition suspected along left lateral aspect of the hernia sac (series 3 image 200). There is some mild stranding in the mesentery just about the visualized pneumatosis or portal venous gas. The more distal small bowel exiting the hernia sac is completely decompressed. Body wall demonstrates no acute findings. No acute osseous findings. IMPRESSION: 1. Features consistent with previous partial colectomy with ostomy of the left lower quadrant. There appears to be either a large parastomal hernia or a large defect in the left lower abdominal wall which contains a large portion of small bowel and distal colon. There is pathologic dilatation of small bowel within the hernia sac with suggested point transition lung lateral aspect of the hernia sac with complete decompression of the exiting small bowel suspicious for incarcerated hernia with resultant small bowel obstruction. 2. Correlation is recommended suprapubic Landeros catheter in place with decompression of the urinary bladder. Mild urothelial thickening of bilateral ureters which can represent sequela ureteritis, correlation with urinalysis is recommended. No evidence of pyelonephritis. Imaging studies and labs personally reviewed. 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 Hernia is non-reducible with loss of domain. Will likely have to transfer to [facility] for definitive treatment of this, unless there are signs of bowel ischemia and this will become emergent. Discussed that surgical correction of this hernia will carry high risk for damage to bowel and further fistula damage and that closing her abdominal wall will be challenging. Elba Small NP Cosigned by Perri Young MD at 05/01/2025 5:53 PM CDT Associated attestation - Perri Young MD - 05/01/2025 5:53 PM CDT Attending Note Patient seen & examined, chart reviewed. I agree with the above PA note including exam, assessment and plan. Patient is a 55 year old surgically complex female who has had multiple hospitalizations in recent months/years at [facility] in [facility], and [facility] in [place]. She initially had a colostomy created in 2007 after complication from a gynecologic surgery. 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 She underwent an unspecified procedure last spring at [facility] here in [place] for a small bowel obstruction within the parastomal hernia. She is unable to recall whether this was an actual surgery, endoscopy, or something else. 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 She was initially sent to [facility] last spring for a wound at the parastomal hernia site and underwent some sort of wound debridement at [facility] for that. Until a week ago, she was on TPN which was then stopped, and she resumed a diet. She is unable to quantify her fistula output or how this has changed since resuming a diet. She has had abdominal pain at the epigastrium and within the parastomal hernia since before stopping the TPN, but the pain has now worsened. Minimal ostomy output in bag (small amt of stool, no gas), and patient unable to quantify how much output she has had in the past couple of days. CT abd/pelvis here concerning for possible small bowel incarceration within the parastomal hernia. This is incompletely characterized on the CT scan due to body habitus. Lactate normal. Exam is currently nonperitoneal. Recommend arranging transfer to [facility] for definitive management of this in caseshe needs to undergo surgical intervention. We discussed that we would only be prepared to operate o n her in a life-threatening scenario, as any surgery will place her at risk for developing additional fistulas and would be complicated by her long-standing parastomal hernia and loss of domain. Discussed with primary team who will work on transfer to [facility]. In the interim, plan for conservative management of the possible SBO. Recommend NG decompression, IVF, trend lactate, and possible small bowel follow through XR's pending clinical course. Perri Young MD General Surgery Trauma and Critical Care Surgery 05/01/25 documented in this encounter Miscellaneous Notes * Care Plan - Cherise Shah BSW - 05/06/2025 10:19 AM CDT Supervisor [employer] Discharge Planning Expected Discharge Date May 06, 2025 Plan Discharge To: Home with family assist (05/06/25 1019) Plan Discharge To - Alternate: Home Health Services (05/06/25 1019) Family/Caregiver Assist Does the patient have family and/or a caregiver that is willing, able and available to assist if needed?: Yes (05/05/25 1132) Name and Relation: Sumeet son (05/05/25 113) Patient likely to discharge home with family assistance today when EMS transportation available to take patient home. SW requested EMS transportation yesterday and patient remains here today. Per nursing report EMS is working on a plan for transportation today although none is yet available. Referrals Status: Facility Referrals - Accepted Follow-up on Referrals Sent: Yes (05/04/25 1231) [facility] [address] [place] [address] Patient / Family Communications: Patient/Family Communications: Confirmed Discharge Plan (05/06/25 1019) Discharge Plan Agreed Upon: Patient;Family member (05/05/25 113) Resources Provided: Resource List Given: Care facilities;Home health agencies (05/03/25 09) Resource List Given To: Patient (05/03/25916) Information Given Concerning: Medicare benefits;Criteria for (skilled) nursing facility;Criteria for home health (05/03/25916) Transportation Plan: Has discharge transport been arranged?: Yes (05/06/25 1019) Transportation Provider: [facility] (05/05/25 113) Transportation Contact Name: Leticia (05/05/25 113) Transportation Provider Phone: [phone] (05/05/251130) Date Of Pick-Up: 05/05/25 (05/05/25 113) Time Of Pick-Up: (will call) (05/05/25 113) MARKO Pak * Care Plan - Ariana Sahni RN - 05/06/2025 5:38 AM CDT Shift Summary Isolation precautions were maintained and hygiene care was performed around the ostomy site. Colostomy appliance was changed and output was monitored, with consistent liquid brown stool documented. Wound and skin assessments showed no significant changes, with excoriation and altered integrity present throughout the shift. Safety checks were completed and fall risk was acknowledged, with no reported falls or injuries. Overall, comfort level was maintained and gastrointestinal function remained stable during the shift. Verbalizes/displays acceptable comfort level or baseline comfort level: No pain or discomfort was reported and resting quietly was documented throughout the shift, with no changes in pain assessment noted. Infection Risk/Actual: Infection prevention, control, or resolution by discharge: Contact isolationprecautions were maintained and temperature remained stable, with no significant changes in erythema or excoriation documented. Safety/Fall: Absence of fall, injury, harm during hospitalization: Safety checks were completed andfall risk was acknowledged, with no reported falls or injuries during the shift. Maintain skin integrity and/or promote wound healing by discharge: Excoriation and altered skin integrity were present and unchanged, wounds on the abdomen, coccyx, and thighs remained WDL except, and hygiene care around the ostomy site was performed; specialty air bed and skin barrier ring were inuse. Achieve optimal gastrointestinal function by discharge or maintain baseline function: Colostomy output was consistent with liquid brown stool and flatus, abdominal appearance and diet tolerance remained stable, and stool output was monitored throughout the shift. * Care Plan - Ileana Grover RN - 05/05/2025 5:37 PM CDT Shift Summary Discharge planning was completed and arrangements were made for home with family assistance. Colostomy output increased and ostomy appliance leakage was managed during the shift. Excoriation and wound status remained unchanged, with dressings dry and intact and specialty air bed maintained. Pain was denied during assessment despite ongoing abdominal pain, and no pain interventions were required. Overall, discharge preparations progressed and comfort and skin integrity were maintained at baseline. Verbalizes/displays acceptable comfort level or baseline comfort level: Abdominal pain was present throughout the shift, but pain was denied during assessment and no pain interventions were required. Identify discharge needs upon admission and through discharge: Discharge planning was completed with agreement from both patient and family, and transport was arranged for home with family assistance. Maintain skin integrity and/or promote wound healing by discharge: Excoriation persisted and woundson the left abdomen and coccyx remained unchanged, with dressings dry and intact and specialty air bed in use throughout the shift. Achieve optimal gastrointestinal function by discharge or maintain baseline function: Colostomy output increased and remained liquid, with a change in stool color and ostomy appliance leakage managedduring the shift. * Care Plan - Cherise Shah BSW - 05/05/2025 12:16 PM CDT Supervisor [employer] Discharge Planning Expected Discharge Date May 05, 2025 Plan Discharge To: Home with family assist (05/05/251130) Plan Discharge To - Alternate: Home Health Services (05/05/251130) Family/Caregiver Assist Does the patient have family and/or a caregiver that is willing, able and available to assist if needed?: Yes (05/05/251131) Name and Relation: Sumeet son (05/05/251131) Patient likely to discharge home with family assistance today per physician conversation. Patient will need EMS transportation home. LOKESH scheduled EMS on will call, see below for details. 05/05/251130 Discharge Planning Transportation Provider [facility] Transportation Contact Name Leticia Transportation Provider Phone [phone] Final Discharge Arrangements Final Discharge Disposition Home Date Of Pick-Up 05/05/25 Time Of Pick-Up Ready now Copy of this transfer form will be sent with patient along with: AVS;Pertinent Medical Records ADD: LOKESH spoke with Brandin at [facility] at 1345 to switch patient status to ready now and updated above. Referrals Status: Facility Referrals - Accepted Follow-up on Referrals Sent: Yes (05/04/25 1231) Preferred Pharmacy: [facility] [address] [place] [address] Patient / Family Communications: Patient/Family Communications: Confirmed Discharge Plan (05/05/251131) Discharge Plan Agreed Upon: Patient;Family member (05/05/251131) Resources Provided: Resource List Given: Care facilities;Home health agencies (05/03/25916) Resource List Given To: Patient (05/03/25916) Information Given Concerning: Medicare benefits;Criteria for (skilled) nursing facility;Criteria for home health (05/03/25916) Transportation Plan: Has discharge transport been arranged?: Yes (05/05/251130) Transportation Provider: [facility] (05/05/251130) Transportation Contact Name: Leticia (05/05/251130) Transportation Provider Phone: [phone] (05/05/251130) Date Of Pick-Up: 05/05/25 (05/05/25 113) Time Of Pick-Up: (will call) (05/05/25 113) MARKO Pak * Care Plan - Ariana Sahni RN - 05/05/2025 6:07 AM CDT Shift Summary Coccyx wound dressing was changed with wet to dry dressing and vashe during the shift, maintaining wound care protocols. Contact isolation precautions were maintained throughout the shift to support infection control. No pain or discomfort was reported, and patient was able to rest quietly with call button and personal items in reach. Liquid stool output remained consistent and feeding tolerance was good, with no changes in abdominal status. Overall, wounds and skin integrity remained stable, and no falls or injuries occurred during the shift. Infection Risk/Actual: Infection prevention, control, or resolution by discharge: Contact isolationprecautions were maintained and temperature remained within normal range; erythema persisted but nonew symptoms were documented. Safety/Fall: Absence of fall, injury, harm during hospitalization: Safety checks were completed andfall risk was acknowledged; no falls or injuries occurred during the shift. * Care Plan - Ileana Grover RN - 05/04/2025 5:44 PM CDT Shift Summary cefTRIAXone (ROCEPHIN) was administered and then stopped in the morning, with urinalysis later in the day noting several abnormal findings. Discharge planning progressed with a recommendation for transfer and follow-up on referrals, but transport was not yet arranged. Skin integrity was supported with regular hygiene care and maintenance of wound dressings, though excoriation persisted. Gastrointestinal function was monitored with continued liquid stool output and adherence to the bowel program. Overall, the shift focused on infection management, skin care, and discharge planning, with ongoingmonitoring of gastrointestinal and wound status. Infection Risk/Actual: Infection prevention, control, or resolution by discharge: cefTRIAXone (ROCEPHIN) was administered in the morning and stopped shortly after; urinalysis in the afternoon noted several abnormal findings, including leukocyte esterase and elevated WBC, while temperature remained below 99??F and pulse decreased by end of shift. Identify discharge needs upon admission and through discharge: Discharge planning included a recommendation for transfer to another acute facility, with follow-up on referrals documented and no discharge transport arranged as of midday. Maintain skin integrity and/or promote wound healing by discharge: Skin integrity concerns persisted with excoriation and altered integrity noted throughout the shift; wounds on the abdomen and coccyx maintained dry, intact dressings, and perineal care was performed with CHG. Achieve optimal gastrointestinal function by discharge or maintain baseline function: Liquid stool output continued throughout the shift with a distended abdomen and passing flatus; bowel program wasfollowed and stool output was monitored as planned. * Care Plan - Cherise Shah BSW - 05/04/2025 12:31 PM CDT Supervisor [employer] Discharge Planning Expected Discharge Date May 05, 2025 Plan Discharge To: Transfer to Other Acute Facility (05/04/251230) Plan Discharge To - Alternate: Home with family assist (05/04/251230) Patient likely to transfer to [facility] when a bed becomes available. Per nursing report no bed available at this time. Referrals Status: Facility Referrals - Accepted and Selected Destination - Admitted Since 05/01/2025 Service Provider Services Address Phone Fax Patient Preferred [address] [address] [phone] -- Follow-up on Referrals Sent: Yes (05/04/251230) Preferred Pharmacy: [facility] [address] [place] [address] [address] Patient / Family Communications: Patient/Family Communications: Plan Discharge To Update (05/04/251230) Discharge Plan Agreed Upon: Patient (05/03/25916) Resources Provided: Resource List Given: Care facilities;Home health agencies (05/03/25916) Resource List Given To: Patient (05/03/25916) Information Given Concerning: Medicare benefits;Criteria for (skilled) nursing facility;Criteria for home health (05/03/25916) Transportation Plan: Has discharge transport been arranged?: No (05/04/25 1231) MARKO Pak * Care Plan - Ariana Sahni RN - 05/04/2025 5:45 AM CDT Shift Summary Coccyx pressure injury dressing was changed and wounds were monitored for healing throughout the shift. Contact isolation precautions were maintained and hygiene care was performed to support infection prevention. Patient required two-person assist for transfers and remained in bed, with safety checks completed and no falls reported. Liquid stool output increased overnight and ostomy management continued, with abdominal appearance unchanged. Overall, comfort level was maintained and no pain or discomfort was reported during the shift. Verbalizes/displays acceptable comfort level or baseline comfort level: No pain or discomfort was reported throughout the shift, and pain assessments remained at baseline with no intervention required. Infection Risk/Actual: Infection prevention, control, or resolution by discharge: Contact isolationprecautions were maintained and hygiene care was performed; temperature and WBC remained within normal limits, and no new abnormal findings were documented in wound or stoma assessments. Safety/Fall: Absence of fall, injury, harm during hospitalization: Safety checks were completed andfall risk was acknowledged, with no reported falls or injuries during the shift; patient remained in bed and required two-person assist for transfers. Maintain skin integrity and/or promote wound healing by discharge: Multiple wounds (abdomen, coccyx, posterior thigh) were monitored and dressings remained intact or were changed as needed, with no documented deterioration in wound appearance or skin integrity; excoriation persisted but was stable. Achieve optimal gastrointestinal function by discharge or maintain baseline function: Liquid green stool output continued via ostomy with increased volume overnight, and abdominal appearance remainedunchanged; ostomy management and monitoring were ongoing. * Care Plan - Omer Monique RN - 05/03/2025 5:52 PM CDT Shift Summary cefTRIAXone (ROCEPHIN) was administered and stopped, and infection prevention measures such as isolation precautions and CHG care were maintained. Discharge planning progressed with updates to transfer destination and provision of resources and information to patient and family/caregiver. Pain and comfort were addressed through regular rounding, repositioning, and hygiene interventions. Skin integrity was supported with wound assessments, dressing changes, and topical agents applied to multiple areas. Patient remained in bed with safety measures in place, and no falls or injuries were documented during the shift. Infection Risk/Actual: Infection prevention, control, or resolution by discharge: cefTRIAXone (ROCEPHIN) was administered in the morning and stopped shortly after; perineal and landeros care with CHG was provided, and isolation precautions were maintained during the shift. Safety/Fall: Absence of fall, injury, harm during hospitalization: Fall risk was acknowledged at the start of the shift, safety checks were completed, and patient remained in bed with call button andpersonal items in reach; no injuries or falls were documented. * Care Plan - Cherise Shah BSW - 05/03/2025 12:10 PM CDT Supervisor [employer] Discharge Planning Expected Discharge Date May 05, 2025 Plan Discharge To: Transfer to Other Acute Facility (05/03/25 115) Plan Discharge To - Alternate: Longterm Facility (05/03/25 115) Patient likely to transfer to [facility] when a bed becomes available. Referrals Status: Facility Referrals - Accepted and Selected Destination - Admitted Since 05/01/2025 Service Provider Services Address Phone Fax Patient Preferred [address] [address] [phone] -- Follow-up on Referrals Sent: Yes (05/03/251153) Preferred Pharmacy: [facility] [address] [place] [address] [address] Patient / Family Communications: Patient/Family Communications: Plan Discharge To Update (05/03/251153) Discharge Plan Agreed Upon: Patient (05/03/25 2943) Resources Provided: Resource List Given: Care facilities;Home health agencies (05/03/25916) Resource List Given To: Patient (05/03/25916) Information Given Concerning: Medicare benefits;Criteria for (skilled) nursing facility;Criteria for home health (05/03/25916) Transportation Plan: Has discharge transport been arranged?: No (05/03/25916) MARKO Pak * Care Plan - Godwin Ceballos LPN - 05/03/2025 6:18 AM CDT Shift Summary HYDROmorphone (PF) was administered for severe abdominal pain, resulting in reported pain relief bythe end of the shift. Dressing changes were performed on abdominal wounds, and peristomal skin was noted to be inflamed and moist at shift end. Abdominal discomfort, nausea, and inability to eat or pass flatus persisted throughout the shift. Isolation precautions were maintained, and vital signs remained stable overall. Overall, pain was managed, wounds were cared for, and gastrointestinal symptoms persisted during the shift. Verbalizes/displays acceptable comfort level or baseline comfort level: Severe abdominal pain was reported at the start of the shift, but by the end of the shift, pain was denied after administrationof HYDROmorphone (PF) for pain relief. Infection Risk/Actual: Infection prevention, control, or resolution by discharge: Temperature and SpO2 remained within normal limits throughout the shift, and isolation precautions were maintained atall times. Maintain skin integrity and/or promote wound healing by discharge: Dressing on the left upper outerabdomen wound was changed during the shift, and periwound area remained warm, red, and moist; peristomal skin was inflamed and moist at the end of shift. Achieve optimal gastrointestinal function by discharge or maintain baseline function: Abdominal discomfort, pain, and continuous nausea persisted throughout the shift, and the patient was unable to eat or pass flatus; colostomy output remained watery with consistent color. * Care Plan - Melisa Chaparro RN - 05/02/2025 5:12 AM CDT Shift Summary HYDROmorphone was administered for abdominal pain, which was later denied, suggesting improvement in comfort level. Isolation and enteric contact precautions were maintained throughout the shift, with no new infection-related interventions required. Safety checks and fall risk assessments were completed regularly, and no falls or injuries occurredduring the shift. Skin integrity was supported by specialty bed use and frequent repositioning, with no new skin breakdown or stoma changes documented. Gastrointestinal function remained stable, with consistent colostomy output and abdominal appearance, though oral intake was not tolerated. Overall, comfort improved after pain management and no significant changes in infection, safety, skin, or gastrointestinal status were noted during the shift. Infection Risk/Actual: Infection prevention, control, or resolution by discharge: Isolation precautions were maintained throughout the shift and enteric contact protocols were followed; temperature decreased significantly overnight, and lactic acid remained within normal limits. Safety/Fall: Absence of fall, injury, harm during hospitalization: Fall risk was acknowledged and safety checks were completed regularly, with no reported falls or injuries during the shift. * Care Plan - Henrietta Juarez - 05/01/2025 5:01 PM CDT Problem: Discharge Planning Goal: Identify discharge needs upon admission and through discharge Description: Care Management Initial Assessment Initial Discharge Planning Assessment completed. Discussed Care Management's role and Discharge planning. Plan Discharge To: Home with family assist Plan Discharge To - Alternate: Home with family assist Does the patient have family and/or a caregiver that is willing, able and available to assist if needed? Yes - Name/Relation:Children Jazzy Moe and Sumeet ALCALA initial assessment complete. Patient states she lives alone but that she is cared for by her Children - She is WC bound. Will await therapy evals for DC disposition. Patient Discharge Planning Goal: home with assist Patient will potentially discharge to a SNF/NH? yes Care Management visited with: patient via in person. Prior to admission, patient resides at: own home. Patient resides in a 1 story home with 0 stairs to enter. Patient's bedroom and bathroom are located on the same floor. Prior to admission, living arrangements: lives alone. Prior to admission, patient's functional level:requires assistance; uses wheelchair for mobility; needs assistance with iADLs: bathing, dressing, toileting, meal preparation, and transportation Community Ambulator: no Prior to admission, the patient has the following DME? Yes wheelchair Services in the home/community: none Receives hemodialysis? No Emergency contact(s): Extended Emergency Contact Information Primary Emergency Contact: Jazzy Lopez Mobile Relation: Daughter Secondary Emergency Contact: Sumeet Gandhi Mobile Relation: Son Prescription coverage: yes Preferred Pharmacy verified: [facility] [address] Insurance coverage verified: Payor: [employer] MEDICARE ADVANTAGE / Plan: [facility] DUAL COMPLETE HMO DSNP [facility] [address] / Product Type: HMO / Secondary Insurance:MEDICAID Medicaid Status: no spend down Has VA Benefits: no Employment Status: disabled DOES receive Disability Income. PCP verified as: Jose Bowers MD Patient has not had a stay at an acute care hospital in the last 30 days. Recent Falls?: Last Known Fall: No falls Plan for transportation at discharge: TBD - Likely needs EMS transport Care Management contact information provided. Care Management will continue to follow and assist asneeded. Outcome: Progressing documented in this encounter Plan of Treatment Scheduled Orders Name Type Priority Associated Diagnoses Orde r Schedule CBC WITH DIFFERENTIAL Lab Routine Acute cystitis without hematuria Parastomal hernia with obstruction and without gangrene Expected: 05/12/2025, Expires: 05/05/2026 COMPREHENSIVE METABOLIC PANEL Lab Routine Acute cystitis without hematuria Parastomal hernia with obstruction and without gangrene Expected: 05/05/2025, Expires: 05/05/2026 documented as of this encounter Procedures Procedure Name Priority Date/Time Associated Diagnosis Comments TELEMETRY REPORT 05/06/2025 3:09 AM CDT CBC WITH DIFFERENTIAL Routine 05/05/2025 7:02 AM CDT COMPREHENSIVE METABOLIC PANEL Routine 05/05/2025 7:02 AM CDT URINALYSIS W/REFLEX MICROSCOPIC Routine 05/04/2025 3:37 PM CDT URINE CULTURE Routine 05/04/2025 3:37 PM CDT CBC WITH DIFFERENTIAL Routine 05/04/2025 1:00 AM CDT COMPREHENSIVE METABOLIC PANEL Routine 05/04/2025 1:00 AM CDT CBC WITH DIFFERENTIAL Routine 05/03/2025 3:23 PM CDT COMPREHENSIVE METABOLIC PANEL Routine 05/03/2025 3:23 PM CDT LACTIC ACID Routine 05/02/2025 3:41 PM CDT XR ABDOMEN FOR FEEDING TUBE 1 VW Stat 05/02/2025 2:05 PM CDT LACTIC ACID Routine 05/02/2025 9:23 AM CDT POC GLUCOSE Routine 05/01/2025 8:06 PM CDT LACTIC ACID Stat 05/01/2025 6:[address] ABDOMEN PELVIS W CONTRAST Stat 05/01/2025 12:25 PM CDT LACTIC ACID Routine 05/01/2025 8:52 AM CDT CBC WITH DIFFERENTIAL Routine 05/01/2025 8:52 AM CDT PHOSPHORUS Routine 05/01/2025 8:52 AM CDT MAGNESIUM LEVEL Routine 05/01/2025 8:52 AM CDT COMPREHENSIVE METABOLIC PANEL Routine 05/01/2025 8:52 AM CDT OT EVAL AND TREAT Routine 05/01/2025 2:5 5 AM CDT PT EVAL AND TREAT Routine 05/01/2025 2:5 5 AM CDT documented in this encounter Results * TELEMETRY REPORT (05/06/2025 3:09 AM CDT) us Provider Scanning ECG ORDERABLES Final Result * (ABNORMAL) COMPREHENSIVE METABOLIC PANEL (05/05/2025 7:02 AM CDT) SODIUM 133(L) 136 - 145 mmol/L 05/05/2025 8:01 AM T [facility] POTASSIUM 3.8 3.5 - 5.1 mmol/L 05/05/2025 8:01 AM T [facility] CHLORIDE 96(L) 98 - 107 mmol/L 05/05/2025 8:01 AM T [facility] CO2 23 22 - 29 mmol/L 05/05/2025 8:01 AM [facility] CALCIUM 9.1 8.6 - 10.0 mg/dL 05/05/2025 8:01 AM T [facility] BUN 42(H) 6 - 20 mg/dL 05/05/2025 8:01 AM [facility] CREATININE 1.16(H) 0.51 - 0.95 mg/dL 05/05/2025 8:01 AM [facility] GLUCOSE 96 74 - 99 mg/dL 05/05/2025 8:01 AM [facility] TOTAL PROTEIN 6.8 6.4 - 8.3 g/dL 05/05/2025 8:01 AM [facility] ALBUMIN 3.3(L) 3.5 - 5.2 g/dL 05/05/2025 8:01 AM T [facility] BILIRUBIN TOTAL 0.2 0.0 - 1.0 mg/dL 05/05/2025 8:01 AM T [facility] ALKALINE PHOSPHATASE 161(H) 35 - 104 U/L 05/05/2025 8:01 AM T [facility] AST 38(H) 10 - 35 U/L 05/05/2025 8:01 AM T [facility] ALT 39(H) <=35 U/L 05/05/2025 8:01 AM T [facility] GFR 55(L) >=60 mL/min/1. 73 sq meter 05/05/2025 8:01 AM T [facility] Comment:eGFR calculated with 2020 CKD-EPI equation. Vegetarian diet, extremely high or low muscle mass, and may affect results. Cystatin C with Glomerular Filtration Rate is a suitable alternative for these patients. ANION GAP 14 9 - 20 mmol/L 05/05/2025 8:01 AM T [facility] Blood Venipuncture / Unknown 05/05/2025 7:02 AM CDT 05/05/2025 7:26 AM CDT Arielle Sosa MD CHEMISTRY ORDERABLES Teresa brown Result [facility] CLIA # [id number] [address] [place] [id number] * (ABNORMAL) CBC WITH DIFFERENTIAL (05/05/2025 7:02 AM CDT) Pathologist [facility] WBC 9.3 4.8 - 10.8 K/uL 05/05/2025 7:32 AM [facility] RBC 3.34(L) 4.20 - 5.40 M/uL 05/05/2025 7:32 AM [facility] HEMOGLOBIN 9.8(L) 12.0 - 16.0 g/dL 05/05/2025 7:32 AM T [facility] HEMATOCRIT 31.2(L) 36.0 - 46.0 % 05/05/2025 7:32 AM T [facility] MCV 93.4 84.0 - 103.0 fL 05/05/2025 7:32 AM [facility] MCH 29.3 27.0 - 34.0 pg 05/05/2025 7:32 AM T [facility] MCHC 31.4 30.0 - 35.0 g/dL 05/05/2025 7:32 AM [facility] PLATELETS 447(H) 140 - 440 K/uL 05/05/2025 7:32 AM [facility] MPV 10.2 8.9 - 12.8 fL 05/05/2025 7:32 AM [facility] RDW 13.7 11.0 - 14.5 % 05/05/2025 7:32 AM [facility] RDW-STDEV 46.1 37.0 - 54.0 fL 05/05/2025 7:32 AM [facility] NEUTROPHILS 72 42 - 75 % 05/05/2025 7:32 AM [facility] LYMPHOCYTES 16(L) 24 - 44 % 05/05/2025 7:32 AM [facility] MONOCYTES 10 2 - 10 % 05/05/2025 7:32 AM [facility] EOSINOPHILS 1 0 - 7 % 05/05/2025 7:32 AM [facility] BASOPHILS 0 0 - 1 % 05/05/2025 7:32 AM [facility] IMMATURE GRANULOCYTES 1 0 - 2 % 05/05/2025 7:32 AM [facility] NEUTROPHIL ABSOLUTE 6.67 2.00 - 8.00 K/uL 05/05/2025 7:32 AM [facility] LYMPHOCYTE ABSOLUTE 1.46 1.20 - 4.00 K/uL 05/05/2025 7:32 AM [facility] MONOCYTE ABSOLUTE 0.95(H) 0.10 - 0.60 K/uL 05/05/2025 7:32 AM [facility] EOSINOPHIL ABSOLUTE 0.08 0.00 - 0.70 K/uL 05/05/2025 7:32 AM [facility] BASOPHILS ABSOLUTE 0.02 0.00 - 0.20 K/uL 05/05/2025 7:32 AM [facility] IMMATURE GRANULOCYTES ABSOLUTE 0.10 0.00 - 0.10 K/uL 05/05/2025 7:32 AM T [facility] SMEAR REVIEWED: NA - Not Applicable 05/05/2025 7:32 AM T [facility] Blood Venipuncture / Unknown 05/05/2025 7:02 AM CDT 05/05/2025 7:26 AM CDT us Arielle Sosa MD HEMATOLOGY ORDERABLES Fin al Result [facility] CLIA # [id number] [address] [place] [address] * (ABNORMAL) URINALYSIS WITH REFLEX MICROSCOPIC (05/04/2025 3:37 PM CDT) COLOR UA Yellow Pale to Dark Yellow 05/04/2025 4:01 PM T [facility] CLARITY UA Cloudy(A) Clear 05/04/2025 4:01 PM T [facility] SPECIFIC GRAVITY UA 1.023 1.003 - 1.035 05/04/2025 4:01 PM T [facility] PH UA 7.0 5.0 - 8.0 05/04/2025 4:01 PM T [facility] LEUKOCYTE ESTERASE UA 3+(A) Negative 05/04/2025 4:01 PM T [facility] NITRITE UA Negative Negative 05/04/2025 4:01 PM T [facility] PROTEIN UA 1+(A) Negative 05/04/2025 4:01 PM T [facility] GLUCOSE UA Negative Negative 05/04/2025 4:01 PM T [facility] KETONES UA 1+(A) Negative 05/04/2025 4:01 PM [facility] UROBILINOGEN UA <2.0 <2.0 mg/dL 4:01 PM T [facility] BILIRUBIN UA Negative Negative 05/04/2025 4:01 PM CDT [facility] BLOOD UA Negative Negative 05/04/2025 4:01 PM CDT [facility] WBC UA 51-100(A) 0 - 2 /hpf 05/04/2025 4:01 PM CDT [facility] RBC UA 3-5(A) 0 - 2 /hpf 05/04/2025 4:01 PM CDT [facility] BACTERIA UA Negative Negative /hpf 05/04/2025 4:01 PM CDT [facility] EPITHELIAL CELLS, URINE 0-5 0 - 5 /hpf 05/04/2025 4:01 PM CDT [facility] TRANSITIONAL EPI 0-2 0 - 2 /hpf 05/04/2025 4:01 PM CDT [facility] TRIPLE PHOS Present(A) Absent 05/04/2025 4:01 PM CDT [facility] CALCIUM OXALATE, URINE Present(A) Absent 05/04/2025 4:01 PM CDT [facility] Urine URINE SPECIMEN OBTAINED BY CLEAN CATCH PROCEDURE / Unknown Collection / Unknown 05/04/2025 3:37 PM CDT 05/04/2025 3:45 PM CDT Goran Machuca DO URINE ORDERABLES Final Resul t Performing Organization Address [facility] de Phone Number [facility] CLIA # [id number] [address] [place] [address] [id number] * URINE CULTURE (05/04/2025 3:37 PM CDT) CULTURE No growth 05/05/2025 1:12 PM CDT [facility] Urine (Urine, indwelling (Landeros) catheter) Collection / Unknown 05/04/2025 3:37 PM CDT 05/04/2025 3:44 PM CDT us Goran Machuca DO MICROBIOLOGY - GENERAL ORDER NADIYA Final Result [facility] CLIA # [id number] [address] [address] [place] [address] * (ABNORMAL) COMPREHENSIVE METABOLIC PANEL (05/04/2025 1:00 AM CDT) SODIUM 133(L) 136 - 145 mmol/L 05/04/2025 1:55 AM CDT [facility] POTASSIUM 4.2 3.5 - 5.1 mmol/L 05/04/2025 1:55 AM CDT [facility] CHLORIDE 97(L) 98 - 107 mmol/L 05/04/2025 1:55 AM CDT [facility] CO2 22 22 - 29 mmol/L 05/04/2025 1:55 AM CDT [facility] CALCIUM 8.8 8.6 - 10.0 mg/dL 05/04/2025 1:55 AM CDT [facility] BUN 51(H) 6 - 20 mg/dL 05/04/2025 1:55 AM T [facility] CREATININE 1.20(H) 0.51 - 0.95 mg/dL 05/04/2025 1:55 AM CDT [facility] GLUCOSE 94 74 - 99 mg/dL 05/04/2025 1:55 AM CDT [facility] TOTAL PROTEIN 6.8 6.4 - 8.3 g/dL 05/04/2025 1:55 AM CDT [facility] ALBUMIN 2.9(L) 3.5 - 5.2 g/dL 05/04/2025 1:55 AM CDT [facility] BILIRUBIN TOTAL 0.2 0.0 - 1.0 mg/dL 05/04/2025 1:55 AM CDT [facility] ALKALINE PHOSPHATASE 199(H) 35 - 104 U/L 05/04/2025 1:55 AM CDT [facility] AST 38(H) 10 - 35 U/L 05/04/2025 1:55 AM CDT [facility] ALT 41(H) <=35 U/L 05/04/2025 1:55 AM T [facility] GFR 53(L) >=60 mL/min/1. 73 sq meter 05/04/2025 1:55 AM T [facility] Comment:eGFR calculated with 2020 CKD-EPI equation. Vegetarian diet, extremely high or low muscle mass, and may affect results. Cystatin C with Glomerular Filtration Rate is a suitable alternative for these patients. ANION GAP 14 9 - 20 mmol/L 05/04/2025 1:55 AM T [facility] Blood Venipuncture / Unknown 05/04/2025 1:00 AM CDT 05/04/2025 1:22 AM CDT us Arielle Sosa MD CHEMISTRY ORDERABLES Teresa l Result [facility] CLIA # [id number] [address] [place] [id number] * (ABNORMAL) CBC WITH DIFFERENTIAL (05/04/2025 1:00 AM CDT) [facility] WBC 8.5 4.8 - 10.8 K/uL 05/04/2025 1:30 AM [facility] RBC 3.57(L) 4.20 - 5.40 M/uL 05/04/2025 1:30 AM T [facility] HEMOGLOBIN 10.5(L) 12.0 - 16.0 g/dL 05/04/2025 1:30 AM T [facility] HEMATOCRIT 34.0(L) 36.0 - 46.0 % 05/04/2025 1:30 AM T [facility] MCV 95.2 84.0 - 103.0 fL 05/04/2025 1:30 AM T [facility] MCH 29.4 27.0 - 34.0 pg 05/04/2025 1:30 AM T [facility] MCHC 30.9 30.0 - 35.0 g/dL 05/04/2025 1:30 AM [facility] PLATELETS 433 140 - 440 K/uL 05/04/2025 1:30 AM [facility] MPV 10.5 8.9 - 12.8 fL 05/04/2025 1:30 AM [facility] RDW 13.4 11.0 - 14.5 % 05/04/2025 1:30 AM [facility] [employer] [facility] RDW-STDEV 47.5 37.0 - 54.0 fL 05/04/2025 1:30 AM [facility] NEUTROPHILS 66 42 - 75 % 05/04/2025 1:30 AM [facility] LYMPHOCYTES 20(L) 24 - 44 % 05/04/2025 1:30 AM [facility] MONOCYTES 12(H) 2 - 10 % 05/04/2025 1:30 AM [facility] [employer] [facility] EOSINOPHILS 1 0 - 7 % 05/04/2025 1:30 AM [facility] BASOPHILS 0 0 - 1 % 05/04/2025 1:30 AM [facility] IMMATURE GRANULOCYTES 1 0 - 2 % 05/04/2025 1:30 AM [facility] NEUTROPHIL ABSOLUTE 5.58 2.00 - 8.00 K/uL 05/04/2025 1:30 AM [facility] LYMPHOCYTE ABSOLUTE 1.69 1.20 - 4.00 K/uL 05/04/2025 1:30 AM [facility] [employer] [facility] MONOCYTE ABSOLUTE 1.03(H) 0.10 - 0.60 K/uL 05/04/2025 1:30 AM [facility] EOSINOPHIL ABSOLUTE 0.10 0.00 - 0.70 K/uL 05/04/2025 1:30 AM [facility] BASOPHILS ABSOLUTE 0.02 0.00 - 0.20 K/uL 05/04/2025 1:30 AM [facility] IMMATURE GRANULOCYTES ABSOLUTE 0.06 0.00 - 0.10 K/uL 05/04/2025 1:30 AM CDT [facility] SMEAR REVIEWED: NA - Not Applicable 05/04/2025 1:30 AM T [facility] Blood Venipuncture / Unknown 05/04/2025 1:00 AM CDT 05/04/2025 1:22 AM CDT Arielle Sosa MD HEMATOLOGY ORDERABLES Fin al Result [facility] CLIA # [id number] [address] [place] [id number] * (ABNORMAL) COMPREHENSIVE METABOLIC PANEL (05/03/2025 3:23 PM CDT) SODIUM 133(L) 136 - 145 mmol/L 05/03/2025 4:06 PM T [facility] POTASSIUM 5.0 3.5 - 5.1 mmol/L 05/03/2025 4:06 PM T [facility] CHLORIDE 97(L) 98 - 107 mmol/L 05/03/2025 4:06 PM T [facility] CO2 20(L) 22 - 29 mmol/L 05/03/2025 4:06 PM T [facility] CALCIUM 9.3 8.6 - 10.0 mg/dL 05/03/2025 4:06 PM T [facility] BUN 52(H) 6 - 20 mg/dL 05/03/2025 4:06 PM T [facility] CREATININE 1.12(H) 0.51 - 0.95 mg/dL 05/03/2025 4:06 PM T [facility] GLUCOSE 102(H) 74 - 99 mg/dL 05/03/2025 4:06 PM T [facility] TOTAL PROTEIN 7.5 6.4 - 8.3 g/dL 05/03/2025 4:06 PM T [facility] ALBUMIN 3.4(L) 3.5 - 5.2 g/dL 05/03/2025 4:06 PM CDT [facility] BILIRUBIN TOTAL <0.2 0.0 - 1.0 mg/dL 05/03/2025 4:06 PM CDT [facility] ALKALINE PHOSPHATASE 224(H) 35 - 104 U/L 05/03/2025 4:06 PM CDT [facility] AST 43(H) 10 - 35 U/L 05/03/2025 4:06 PM CDT [facility] ALT 46(H) <=35 U/L 05/03/2025 4:06 PM CDT [facility] GFR 57(L) >=60 mL/min/1. 73 sq meter 05/03/2025 4:06 PM T [facility] Comment:eGFR calculated with 2020 CKD-EPI equation. Vegetarian diet, extremely high or low muscle mass, and may affect results. Cystatin C with Glomerular Filtration Rate is a suitable alternative for these patients. ANION GAP 16 9 - 20 mmol/L 05/03/2025 4:06 PM T [facility] Blood Venipuncture / Unknown 05/03/2025 3:23 PM CDT 05/03/2025 3:35 PM CDT us Arielle Sosa MD CHEMISTRY ORDERABLES Teresa l Result [facility] CLIA # [id number] [address] [place] [address] [id number] * (ABNORMAL) CBC WITH DIFFERENTIAL (05/03/2025 3:23 PM CDT) Pathologist [facility] WBC 10.0 4.8 - 10.8 K/uL 05/03/2025 3:57 PM CDT [facility] RBC 4.10(L) 4.20 - 5.40 M/uL 05/03/2025 3:57 PM CDT [facility] HEMOGLOBIN 12.0 12.0 - 16.0 g/dL 05/03/2025 3:57 PM T [facility] HEMATOCRIT 37.8 36.0 - 46.0 % 05/03/2025 3:57 PM [facility] MCV 92.2 84.0 - 103.0 fL 05/03/2025 3:57 PM [facility] MCH 29.3 27.0 - 34.0 pg 05/03/2025 3:57 PM [facility] MCHC 31.7 30.0 - 35.0 g/dL 05/03/2025 3:57 PM [facility] PLATELETS 457(H) 140 - 440 K/uL 05/03/2025 3:57 PM [facility] MPV 11.2 8.9 - 12.8 fL 05/03/2025 3:57 PM [facility] RDW 13.5 11.0 - 14.5 % 05/03/2025 3:57 PM [facility] RDW-STDEV 46.0 37.0 - 54.0 fL 05/03/2025 3:57 PM [facility] NEUTROPHILS 73 42 - 75 % 05/03/2025 3:57 PM [facility] LYMPHOCYTES 15(L) 24 - 44 % 05/03/2025 3:57 PM [facility] MONOCYTES 10 2 - 10 % 05/03/2025 3:57 PM [facility] EOSIN[facility] 0 0 - 7 % 05/03/2025 3:57 PM [facility] BASOPHILS 0 0 - 1 % 05/03/2025 3:57 PM [facility] IMMATURE GRANULOCYTES 1 0 - 2 % 05/03/2025 3:57 PM [facility] NEUTROPHIL ABSOLUTE 7.30 2.00 - 8.00 K/uL 05/03/2025 3:57 PM [facility] LYMPHOCYTE ABSOLUTE 1.50 1.20 - 4.00 K/uL 05/03/2025 3:57 PM CDT [facility] MONOCYTE ABSOLUTE 1.01(H) 0.10 - 0.60 K/uL 05/03/2025 3:57 PM CDT [facility] EOSINOPHIL ABSOLUTE 0.04 0.00 - 0.70 K/uL 05/03/2025 3:57 PM CDT [facility] BASOPHILS ABSOLUTE 0.04 0.00 - 0.20 K/uL 05/03/2025 3:57 PM CDT [facility] IMMATURE GRANULOCYTES ABSOLUTE 0.10 0.00 - 0.10 K/uL 05/03/2025 3:57 PM CDT [facility] SMEAR REVIEWED: NN - No Action Needed 05/03/2025 3:57 PM CDT [facility] Blood Venipuncture / Unknown 05/03/2025 3:23 PM CDT 05/03/2025 3:35 PM CDT Arielle Sosa MD HEMATOLOGY ORDERABLES Fin al Result [facility] CLIA # [id number] [address] [place] [address] * LACTIC ACID (05/02/2025 3:41 PM CDT) LACTIC ACID 1.2 <=2.0 mmol/L 05/02/2025 4:18 PM CDT [facility] Blood Venipuncture / Unknown 05/02/2025 3:41 PM CDT 05/02/2025 3:50 PM CDT Perri Young MD CHEMISTRY ORDERABLES Final Result Performing Organization Address [facility]/ZIP Co de Phone Number [facility] CLIA # [id number] [address] [place] [address] * XR ABDOMEN FOR FEEDING TUBE 1 VW (05/02/2025 2:05 PM CDT) Anatomical Region Laterality Modality Abdomen Computed Radiogr aphy 05/02/2025 2:05 PM CDT Impressions 05/02/2025 2:15 PM CDT IMPRESSION: See below. Exam: XR ABDOMEN FOR FEEDING TUBE 1 VW Date/Time of Exam: 05/02/2025 2:05 PM Reason For Exam: Abdomen Distension. Diagnosis: See Reason for Exam. Findings: Comparison: CT abdomen pelvis 05/01/2025 There is a large hernia containing bowel left lower quadrant of Parkinson's exam. There is dilatation of a small bowel loop measuring up to 6.4 cm which may be partially projectional. The bowel overlying the peritoneal space does not appear dilated. Nasogastric tube and nasogastric body. IMPRESSION: 1. Features remain concerning for incarcerated hernia of the left abdominal wall with dilated small bowel measuring up to 6.4 cm within the hernia sac. 2. Nasogastric tube tip overlies gastric body. Narrative Procedure Note Tyler Gaona MD - 05/02/2025 IMPRESSION: See below. Exam: XR ABDOMEN FOR FEEDING TUBE 1 VW Date/Time of Exam: 05/02/2025 2:05 PM Reason For Exam: Abdomen Distension. Diagnosis: See Reason for Exam. Findings: Comparison: CT abdomen pelvis 05/01/2025 There is a large hernia containing bowel left lower quadrant of Parkinson's exam. There is dilatation of a small bowel loop measuring up to 6.4 cm which may be partially projectional. The bowel overlying the peritoneal space does not appear dilated. Nasogastric tube and nasogastric body. IMPRESSION: 1. Features remain concerning for incarcerated hernia of the left abdominal wall with dilated small bowel measuring up to 6.4 cm within the hernia sac. 2. Nasogastric tube tip overlies gastric body. us Arielle Sosa MD DIAGNOSTIC IMAGING ORDERA BLES Final Result * LACTIC ACID (05/02/2025 9:23 AM CDT) LACTIC ACID 0.8 <=2.0 mmol/L 05/02/2025 9:52 AM CDT [facility] Blood Venipuncture / Unknown 05/02/2025 9:23 AM CDT 05/02/2025 9:28 AM CDT Perir Young MD CHEMISTRY ORDERABLES Final Result [facility] CLIA # [id number] [address] [address] [place] [address] * (ABNORMAL) POC GLUCOSE (05/01/2025 8:06 PM CDT) GLUCOSE POC 102(H) 74 - 99 mg/dL 05/01/2025 8:06 PM CDT [facility] SPECIMEN SOURCE, GLUCOSE POC Capillary 05/01/2025 8:06 PM CDT [facility] Blood, whole 05/01/2025 8:06 PM CDT 05/01/2025 8:14 PM CDT Arielle Sosa MD POINT OF CARE TESTING Fin al Result Performing Organization Address [facility]/ZIP Co de Phone Number [facility] CLIA # [id number] [address] [address] [place] [address] * LACTIC ACID (05/01/2025 6:50 PM CDT) LACTIC ACID 1.0 <=2.0 mmol/L 05/01/2025 7:21 PM CDT [facility] Blood Venipuncture / Unknown 05/01/2025 6:50 PM CDT 05/01/2025 6:59 PM CDT Arielle Sosa MD CHEMISTRY ORDERABLES Teresa l Result [facility] CLIA # [id number] [address] [facility] [place] [address] * CT ABDOMEN PELVIS W CONTRAST (05/01/2025 12:25 PM CDT) Anatomical Region Laterality Modality Abdomen Computed Tomogra phy 05/01/2025 12:2 5 PM CDT Impressions 05/02/2025 10:06 AM CDT IMPRESSION: 1. Features consistent with previous partial colectomy with ostomy of the left lower quadrant. There appears to be either a large parastomal hernia or a large defect in the left lower abdominal wall which contains a large portion of small bowel and distal colon. There is pathologic dilatation of small bowel within the hernia sac with suggested point transition along lateral aspect of the hernia sac with complete decompression of the exiting small bowel suspicious for incarcerated hernia resulting in small bowel obstruction. Correlation needed. 2. Suprapubic Landeros catheter in place with decompression of the urinary bladder. Mild urothelial thickening of bilateral ureters which can represent sequela mild ureteritis, correlation with urinalysis is recommended. No evidence of pyelonephritis. RESULTS WERE COMMUNICATED BY TELEPHONE TO DR. ARIELLE SOSA AT 05/01/2025 2:12 PM Narrative 05/02/2025 10:06 AM CDT Exam: CT ABDOMEN PELVIS W CONTRAST Date/Time of Exam: 05/01/2025 12:25 PM Reason For Exam: Sepsis Diagnosis: See Reason for Exam Technique: CT of the abdomen and pelvis was performed following the administration of intravenous contrast. Contrast: IOPAMIDOL 61 % INTRAVENOUS SOLUTION (MULTI-DOSE BULK PACK) Given:100 mL WITHOUT ORAL CONTRAST. Comparison: None. ABDOMEN/PELVIS: Lower thorax demonstrates no acute findings. Normal size liver. Smooth hepatic contour. No concerning hepatic lesions. Mild hepatic steatosis. The gallbladder is surgically absent. No biliary ductal dilatation or choledocholithiasis. Portal venous system is well-opacified. Pancreas is unremarkable. No pancreatic ductal dilatation, mass or inflammation. Spleen is unremarkable. Bilateral adrenal glands are unremarkable. There is a suprapubic catheter in place as normal hyperdense material within the lumen of the bladder which represents some retained contrast there is a previous contrast demonstration. Indwelling suprapubic catheter is in satisfactory position within decompressed bladder. There is mild bilateral hydronephrosis, greater on the right, with diffuse mild mural tibial thickening without evidence of popliteal nephritis. There is contrast material in the upper systems which does evaluation for underlying calculi. No visualized cortical lesions. Uterus appears surgically absent. Bilateral adnexa unremarkable. There are multiple clips in the left lower quadrant mesentery in the central mesentery of the lower abdomen. Aorta is normal in caliber. IVC unremarkable. Is an IVC filter in place. No pathologically enlarged lymph nodes. There is diastases anterior abdominal wall midline with wide neck defect measuring 9.3 cm containing portion transverse colon and small bowel without incarceration change. There is an previous partial colectomy with ostomy left lateral abdominal wall not fully included on this exam. There is additional large defect in left lateral abdominal wall which may represent a large parastomal hernia or abdominal wall defect, this measures measuring 7.2 cm. The hernia sac contains small bowel and distal colon with pathologic dilatation of small bowel within the hernia sac measuring 4.3 cm, the small bowel is not fully included with the point transition suspected along left lateral aspect of the hernia sac (series 3 image 200). There is some mild stranding in the mesentery without visualized pneumatosis or portal venous gas. The more distal small bowel exiting the hernia sac is completely decompressed. Body wall demonstrates no acute findings. No acute osseous findings. Procedure Note Tyler Gaona MD - 05/02/2025 Exam: CT ABDOMEN PELVIS W CONTRAST Date/Time of Exam: 05/01/2025 12:25 PM Reason For Exam: Sepsis Diagnosis: See Reason for Exam Technique: CT of the abdomen and pelvis was performed following the administration of intravenous contrast. Contrast: IOPAMIDOL 61 % INTRAVENOUS SOLUTION (MULTI-DOSE BULK PACK) Given:100 mL WITHOUT ORAL CONTRAST. Comparison: None. ABDOMEN/PELVIS: Lower thorax demonstrates no acute findings. Normal size liver. Smooth hepatic contour. No concerning hepatic lesions. Mild hepatic steatosis. The gallbladder is surgically absent. No biliary ductal dilatation or choledocholithiasis. Portal venous system is well-opacified. Pancreas is unremarkable. No pancreatic ductal dilatation, mass or inflammation. Spleen is unremarkable. Bilateral adrenal glands are unremarkable. There is a suprapubic catheter in place as normal hyperdense material within the lumen of the bladder which represents some retained contrast there is a previous contrast demonstration. Indwelling suprapubic catheter is in satisfactory position within decompressed bladder. There is mild bilateral hydronephrosis, greater on the right, with diffuse mild mural tibial thickening without evidence of popliteal nephritis. There is contrast material in the upper systems which does evaluation for underlying calculi. No visualized cortical lesions. Uterus appears surgically absent. Bilateral adnexa unremarkable. There are multiple clips in the left lower quadrant mesentery in the central mesentery of the lower abdomen. Aorta is normal in caliber. IVC unremarkable. Is an IVC filter in place. No pathologically enlarged lymph nodes. There is diastases anterior abdominal wall midline with wide neck defect measuring 9.3 cm containing portion transverse colon and small bowel without incarceration change. There is an previous partial colectomy with ostomy left lateral abdominal wall not fully included on this exam. There is additional large defect in left lateral abdominal wall which may represent a large parastomal hernia or abdominal wall defect, this measures measuring 7.2 cm. The hernia sac contains small bowel and distal colon with pathologic dilatation of small bowel within the hernia sac measuring 4.3 cm, the small bowel is not fully included with the point transition suspected along left lateral aspect of the hernia sac (series 3 image 200). There is some mild stranding in the mesentery without visualized pneumatosis or portal venous gas. The more distal small bowel exiting the hernia sac is completely decompressed. Body wall demonstrates no acute findings. No acute osseous findings. IMPRESSION: 1. Features consistent with previous partial colectomy with ostomy of the left lower quadrant. There appears to be either a large parastomal hernia or a large defect in the left lower abdominal wall which contains a large portion of small bowel and distal colon. There is pathologic dilatation of small bowel within the hernia sac with suggested point transition along lateral aspect of the hernia sac with complete decompression of the exiting small bowel suspicious for incarcerated hernia resulting in small bowel obstruction. Correlation needed. 2. Suprapubic Landeros catheter in place with decompression of the urinary bladder. Mild urothelial thickening of bilateral ureters which can represent sequela mild ureteritis, correlation with urinalysis is recommended. No evidence of pyelonephritis. RESULTS WERE COMMUNICATED BY TELEPHONE TO DR. ARIELLE SOSA AT 05/01/2025 2:12 PM Goran Machuca DO CT ORDERABLES Final Result * LACTIC ACID (05/01/2025 8:52 AM CDT) Pathologist [facility] LACTIC ACID 0.9 <=2.0 mmol/L 05/01/2025 9:19 AM CDT [facility] Blood Venipuncture / Unknown 05/01/2025 8:52 AM CDT 05/01/2025 8:57 AM CDT Goran Machuca DO CHEMISTRY ORDERABLES Final R esult [facility] CLIA # [id number] [address] [place] [id number] * (ABNORMAL) CBC WITH DIFFERENTIAL (05/01/2025 8:52 AM CDT) [facility] WBC 7.8 4.8 - 10.8 K/uL 05/01/2025 8:59 AM CDT [facility] RBC 3.38(L) 4.20 - 5.40 M/uL 05/01/2025 8:59 AM CDT [facility] HEMOGLOBIN 9.9(L) 12.0 - 16.0 g/dL 05/01/2025 8:59 AM CDT [facility] HEMATOCRIT 31.0(L) 36.0 - 46.0 % 05/01/2025 8:59 AM CDT [facility] MCV 91.7 84.0 - 103.0 fL 05/01/2025 8:59 AM CDT [facility] MCH 29.3 27.0 - 34.0 pg 05/01/2025 8:59 AM CDT [facility] MCHC 31.9 30.0 - 35.0 g/dL 05/01/2025 8:59 AM CDT [facility] PLATELETS 353 140 - 440 K/uL 05/01/2025 8:59 AM CDT [facility] MPV 11.2 8.9 - 12.8 fL 05/01/2025 8:59 AM [facility] RDW 13.5 11.0 - 14.5 % 05/01/2025 8:59 AM [facility] RDW-STDEV 45.3 37.0 - 54.0 fL 05/01/2025 8:59 AM [facility] NEUTROPHILS 71 42 - 75 % 05/01/2025 8:59 AM [facility] LYMPHOCYTES 17(L) 24 - 44 % 05/01/2025 8:59 AM [facility] MONOCYTES 11(H) 2 - 10 % 05/01/2025 8:59 AM [facility] EOSINOPHILS 1 0 - 7 % 05/01/2025 8:59 AM [facility] BASOPHILS 0 0 - 1 % 05/01/2025 8:59 AM [facility] IMMATURE GRANULOCYTES 1 0 - 2 % 05/01/2025 8:59 AM [facility] NEUTROPHIL ABSOLUTE 5.51 2.00 - 8.00 K/uL 05/01/2025 8:59 AM [facility] LYMPHOCYTE ABSOLUTE 1.30 1.20 - 4.00 K/uL 05/01/2025 8:59 AM [facility] MONOCYTE ABSOLUTE 0.86(H) 0.10 - 0.60 K/uL 05/01/2025 8:59 AM [facility] EOSINOPHIL ABSOLUTE 0.08 0.00 - 0.70 K/uL 05/01/2025 8:59 AM [facility] BASOPHILS ABSOLUTE 0.01 0.00 - 0.20 K/uL 05/01/2025 8:59 AM [facility] IMMATURE GRANULOCYTES ABSOLUTE 0.05 0.00 - 0.10 K/uL 05/01/2025 8:59 AM [facility] SMEAR REVIEWED: NA - Not Applicable 05/01/2025 8:59 AM [facility] Blood Venipuncture / Unknown 05/01/2025 8:52 AM CDT 05/01/2025 8:57 AM CDT us Goran Machuca DO HEMATOLOGY ORDERABLES Final Result [facility] # [id number] [address] [facility] [place] [address] * (ABNORMAL) COMPREHENSIVE METABOLIC PANEL (05/01/2025 8:52 AM CDT) Pathologist [facility] SODIUM 132(L) 136 - 145 mmol/L 05/01/2025 9:28 AM CDT [facility] POTASSIUM 4.9 3.5 - 5.1 mmol/L 05/01/2025 9:28 AM CDT [facility] CHLORIDE 96(L) 98 - 107 mmol/L 05/01/2025 9:28 AM T [facility] CO2 24 22 - 29 mmol/L 05/01/2025 9:28 AM T [facility] CALCIUM 8.5(L) 8.6 - 10.0 mg/dL 05/01/2025 9:28 AM T [facility] BUN 62(H) 6 - 20 mg/dL 05/01/2025 9:28 AM T [facility] CREATININE 1.14(H) 0.51 - 0.95 mg/dL 05/01/2025 9:28 AM T [facility] GLUCOSE 133(H) 74 - 99 mg/dL 05/01/2025 9:28 AM T [facility] TOTAL PROTEIN 6.7 6.4 - 8.3 g/dL 05/01/2025 9:28 AM CDT [facility] ALBUMIN 3.0(L) 3.5 - 5.2 g/dL 05/01/2025 9:28 AM CDT [facility] BILIRUBIN TOTAL <0.2 0.0 - 1.0 mg/dL 05/01/2025 9:28 AM T [facility] ALKALINE PHOSPHATASE 137(H) 35 - 104 U/L 05/01/2025 9:28 AM CDT [facility] AST 32 10 - 35 U/L 05/01/2025 9:28 AM CDT [facility] ALT 34 <=35 U/L 05/01/2025 9:28 AM CDT [facility] GFR 56(L) >=60 mL/min/1. 73 sq meter 05/01/2025 9:28 AM CDT [facility] Comment:eGFR calculated with 2020 CKD-EPI equation. Vegetarian diet, extremely high or low muscle mass, and may affect results. Cystatin C with Glomerular Filtration Rate is a suitable alternative for these patients. ANION GAP 12 9 - 20 mmol/L 05/01/2025 9:28 AM CDT [facility] Blood Venipuncture / Unknown 05/01/2025 8:52 AM CDT 05/01/2025 8:57 AM CDT us [facility] DO CHEMISTRY ORDERABLES Final R esult Performing Organization Address [facility] Co de Phone Number [facility] CLIA # [id number] [address] [address] * MAGNESIUM LEVEL (05/01/2025 8:52 AM CDT) MAGNESIUM 2.4 1.6 - 2.6 mg/dL 05/01/2025 9:28 AM CDT [facility] Blood Venipuncture / Unknown 05/01/2025 8:52 AM CDT 05/01/2025 8:57 AM CDT us Goran Machuca DO CHEMISTRY ORDERABLES Final R esult Performing Organization Address City/[facility] Co de Phone Number [facility] CLIA # [id number] [address] [place] [address] * PHOSPHORUS (05/01/2025 8:52 AM CDT) PHOSPHORUS 4.1 2.5 - 4.5 mg/dL 05/01/2025 9:28 AM CDT [facility] Blood Venipuncture / Unknown 05/01/2025 8:52 AM CDT 05/01/2025 8:57 AM CDT us Goran Machuca DO CHEMISTRY ORDERABLES Final R esult [facility] [facility] CLIA # [id number] [address] [place] [id number] documented in this encounter Visit Diagnoses Diagnosis Parastomal hernia with obstruction and without gangrene- Primary Hernia of unspecified site, with obstruction Acute cystitis without hematuria Acute cystitis Parastomal hernia with obstruction and without gangrene Hernia of unspecified site, with obstruction 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 Paraplegia H/O deep venous thrombosis Personal history of venous thrombosis and embolism Morbid obesity due to excess calories Obstructive sleep apnea syndrome Obstructive sleep apnea (adult) (pediatric) Enterocolic fistula Fistula of intestine, excluding rectum and anus Colostomy status ([facility]) Colostomy status Skin breakdown Other specified hypertrophic and atrophic condition of skin Acute cystitis Decubitus ulcer Pressure ulcer, unspecified site Irreducible intra-abdominal hernia SBO (small bowel obstruction) (CMS/HCC) Unspecified intestinal obstruction Protein-calorie malnutrition, moderate Malnutrition of moderate degree documented in this encounter Administered Medications Inactive Administered Medications - up to 3 most recent administrations Medication Order MAR Action Action Date Dose Rate Site acetaminophen (TYLENOL) tablet 650 mg 650 mg, Oral, EVERY 6 HOURS PRN, Starting on 05/01/25 at 0219, Until Katlyn 05/06/25 at 1828, Other (See Comment), See admin instructions, Routine Given 05/01/2025 10:15 AM CDT 650 mg aluminum - magnesium - simethicone (MYLANTA) 200-200-20 mg/5 mL oral suspension 30 mL 30 mL, Oral, EVERY 2 HOURS PRN, Starting on 05/01/25 at 0219, Until Katlyn 05/06/25 at 1828, Indigestion, Routine ascorbic acid (vitamin C) (VITAMIN C) tablet 500 mg 500 mg, Oral, DAILY, First dose on Sat05/01/25 at 1000, Until Discontinued, Routine, Previous Med: ascorbic acid, vitamin C, (VITAMIN C) 500 mg tablet - Orig Sig - Take 500 mg by mouth daily. Given 05/06/2025 9:39 AM CDT 500 mg Given 05/05/2025 8:16 AM CDT 500 mg Given 05/04/2025 9:30 AM CDT 500 mg cefTRIAXone (ROCEPHIN) 2,000 mg in sodium chloride 0.9% 50 mL IVPB (MBP) 2,000 mg, IV, EVERY 24 HOURS (DAILY), 5 doses, First dose on Sat05/01/25 at 0330, Last dose on Sat05/05/25 at 0900, Routine, Antibiotic Indication: Urinary Tract Infection(UTI) / Infection New Bag 05/05/2025 8:22 AM CDT 2,000 mg 118 mL/hr New Bag 05/04/2025 8:58 AM CDT 2,000 mg 118 mL/hr New Bag 05/03/2025 8:55 AM CDT 2,000 mg 118 mL/hr dextrose 5 % in water 250 mL flush bag 25 mL 25 mL, IV, SEE ADMIN INSTRUCTIONS, Starting on 05/01/25 at 0219, Until Katlyn 05/06/25 at 1828, Routine escitalopram oxalate (LEXAPRO) tablet 10 mg 10 mg, Oral, DAILY, First dose on Sat05/03/25 at 1615, Until Discontinued, Routine Given 05/06/2025 9:39 AM CDT 10 mg Given 05/05/2025 8:16 AM CDT 10 mg Given 05/04/2025 9:30 AM CDT 10 mg heparin injection 5,000 Units 5,000 Units, subCUT, EVERY 8 HOURS, First dose on Sat05/04/25 at 1300, Until Discontinued, Routine Given 05/06/2025 2:28 PM CDT 5,000 Units Abdominal Tissue Given 05/06/2025 5:02 AM CDT 5,000 Units A bdominal Tissue Given 05/05/2025 9:13 PM CDT 5,000 Units A bdominal Tissue HYDROcodone-acetaminophen (NORCO) 5-325 mg per tablet 1 Tablet 1 Tablet, Oral, EVERY 6 HOURS PRN, Starting on 05/01/25 at 1409, Until Katlyn 05/06/25 at 1828, Pain (See admin instructions), Routine Given 05/02/2025 10:32 AM CDT 1 Tablet HYDROmorphone (PF) (DILAUDID) injection 0.3 mg 0.3 mg, IV, EVERY 2 HOURS PRN, Starting on 05/01/25 at 1524, Until Katlyn 05/06/25 at 1828, Pain (See admin instructions), Routine Given 05/02/2025 7:09 PM CDT 0.3 mg Given 05/02/2025 2:57 PM CDT 0.3 mg Given 05/02/2025 12:04 AM CDT 0.3 mg hydrOXYzine HCL (ATARAX) tablet 25 mg 25 mg, Oral, EVERY 6 HOURS PRN, Starting on 05/03/25 at 1613, Until Katlyn 05/06/25 at 1828, Anxiety, Insomnia, Routine Given 05/04/2025 10:25 PM CDT 25 mg iopamidoL (ISOVUE-300) 61% injection (drawn from multi-use bulk pack) 100 mL 100 mL, IV, INTRA-PROCEDURE ONCE, 1 dose, Starting on 05/01/25 at 1224, Until 05/01/25 at 1224, Routine Contrast Given 05/01/2025 12:24 PM CDT 100 mL melatonin tablet 3 mg 3 mg, Oral, NIGHTLY PRN, Starting on 05/01/25 at 0219, Until Katlyn 05/06/25 at 1828, Insomnia, Routine Given 05/04/2025 2:06 AM CDT 3 mg naloxone (NARCAN) 0.4 mg/mL injection 0.1 mg 0.1 mg, IV, SEE ADMIN INSTRUCTIONS, Starting on 05/01/25 at 0219, Until Katlyn 05/06/25 at 1828, Routine ondansetron (ZOFRAN) 4 mg/2 mL injection 4 mg 4 mg, IV, EVERY 6 HOURS PRN, Starting on 05/01/25 at 0219, Until Katlyn 05/06/25 at 1828, Nausea/Emesis, Routine Given 05/02/2025 1:33 PM CDT 4 mg Given 05/01/2025 4:17 PM CDT 4 mg pantoprazole (PROTONIX) 40 mg in sodium chloride 0.9% 10 mL injection 40 mg, IV, TWO TIMES DAILY, First dose on 05/01/25 at 0900, Until Discontinued, Routine, For vial+diluent: 10 mL NS is needed to reconstitute pantoprazole vial. For doses less than 40 mg Epic may default less than 10 mL NS. Pharmacist to change NS dispense amount to 10 mL., Indication: Gastroesophageal reflux disease (GERD) Given 05/06/2025 9:40 AM CDT 40 mg Given 05/05/2025 9:14 PM CDT 40 mg Given 05/05/2025 8:14 AM CDT 40 mg polyethylene glycol (MIRALAX) packet 17 Gram 17 Gram, Oral, DAILY, First dose on 05/02/25 at 1115, Until Discontinued, Routine Given 05/06/2025 9:39 AM CDT 17 Grams Given 05/05/2025 8:15 AM CDT 17 Grams Given 05/04/2025 9:29 AM CDT 17 Grams sennosides-docusate sodium (SENNA-S) 8.6-50 mg per tablet 1 Tablet 1 Tablet, Oral, TWO TIMES DAILY, First dose on 05/02/25 at 1000, Until Discontinued, Routine Given 05/06/2025 9:39 AM CDT 1 Tablet Given 05/05/2025 9:13 PM CDT 1 Tablet Given 05/05/2025 8:16 AM CDT 1 Tablet sodium chloride 0.9 % flush bag 25 mL 25 mL, IV, SEE ADMIN INSTRUCTIONS, Starting on 05/01/25 at 0219, Until Katlyn 05/06/25 at 1828, Routine sodium chloride 0.9 % infusion IV, at 75 mL/hr, CONTINUOUS, Starting on 05/01/25 at 0300, Until 05/02/25 at 0957, Routine New Bag 05/01/2025 3:31 PM CDT 75 mL/hr New Bag 05/01/2025 3:40 AM CDT 75 mL/hr sodium chloride 0.9 % infusion IV, at 75 mL/hr, CONTINUOUS, Starting on 05/02/25 at 1115, Until 05/03/25 at 1114, Routine New Bag 05/02/2025 12:21 PM CDT 75 mL/hr sodium chloride 0.9 % infusion IV, at 75 mL/hr, CONTINUOUS, Starting on 05/03/25 at 1230, Until 05/05/25 at 0751, Routine Bag Switched 05/04/2025 3:40 PM CDT 75 mL/hr New Bag 05/04/2025 2:01 AM CDT 75 mL/hr New Bag 05/03/2025 12:33 PM CDT 75 mL/hr sodium chloride flush injection 10 mL 10 mL, IV, EVERY 12 HOURS (BlD), First dose on 05/01/25 at 0900, Until Discontinued, Routine Given 05/05/2025 9:14 PM CDT 10 mL Given 05/05/2025 8:15 AM CDT 10 mL Given 05/04/2025 8:09 PM CDT 10 mL sodium chloride flush injection 10 mL 10 mL, IV, SEE ADMIN INSTRUCTIONS, Starting on 05/01/25 at 0219, Until Katlyn 05/06/25 at 1828, Routine sodium chloride flush injection 10 mL 10 mL, IV, TWO TIMES DAILY, First dose on 05/01/25 at 1230, Until Discontinued, Routine Given 05/05/2025 9:1 4 PM CDT 10 mL Given 05/05/2025 8:15 AM CDT 10 mL Given 05/04/2025 8:09 PM CDT 10 mL documented in this encounter Active and Recently Administered Medications Times are shown in CDT. Scheduled Medication Order 05/04/2025 05/05/2025 05/06/2025 ascorbic acid (vitamin C) (VITAMIN C) tablet 500 mg 500 mg, Oral, DAILY, First dose on 05/01/25 at 1000, Until Discontinued, Routine, Previous Med: ascorbic acid, vitamin C, (VITAMIN C) 500 mg tablet - Orig Sig - Take 500 mg by mouth daily. 0930 (Given - Provider: Ileana Grover RN) 0816 (Given - Provider: Ileana Grover RN) 0939 (Given - Provider: Ileana Grover RN) cefTRIAXone (ROCEPHIN) 2,000 mg in sodium chloride 0.9% 50 mL IVPB (MBP) (COMPLETED) 2,000 mg, IV, EVERY 24 HOURS (DAILY), 5 doses, First dose on Sat05/01/25 at 0330, Last dose on Sat05/05/25 at 0900, Routine, Antibiotic Indication: Urinary Tract Infection(UTI) / Infection 0858 (New Bag - Provider: Ielana Grover RN)0928 (Stopped - Provider: Ileana Grover RN) 0822 (New Bag - Provider: Ileana Grover RN)0852 (Stopped - Provider: Ileana Grover RN) dextrose 5 % in water 250 mL flush bag 25 mL 25 mL, IV, SEE ADMIN INSTRUCTIONS, Starting on 05/01/25 at 0219, Until Katlyn 05/06/25 at 1828, Routine escitalopram oxalate (LEXAPRO) tablet 10 mg 10 mg, Oral, DAILY, First dose on Sat05/03/25 at 1615, Until Discontinued, Routine 0930 (Given - Provider: Ileana Grover RN) 0816 (Given - Provider: Ileana Grover RN) 0939 (Given - Provider: Ileana Grover RN) heparin injection 5,000 Units 5,000 Units, subCUT, EVERY 8 HOURS, First dose on Sat05/04/25 at 1300, Until Discontinued, Routine 1242 (Given - Provider: Ileana Grover RN)2007 (Given - Provider: Ariana Sahni RN) 0506 (Given - Provider: Ariana Sahni RN)1300 (Not Given - Provider: Ileana Grover RN - Reason: Other - See Comment - Comment: patient is being discharged)211 (Given - Provider: Ariana Sahni RN) 0502 (Given - Provider: Ariana Sahni RN)1428 (Given - Provider: Ileana Grover RN) naloxone (NARCAN) 0.4 mg/mL injection 0.1 mg 0.1 mg, IV, SEE ADMIN INSTRUCTIONS, Starting on 05/01/25 at 0219, Until Katlyn 05/06/25 at 1828, Routine pantoprazole (PROTONIX) 40 mg in sodium chloride 0.9% 10 mL injection 40 mg, IV, TWO TIMES DAILY, First dose on 05/01/25 at 0900, Until Discontinued, Routine, For vial+diluent: 10 mL NS is needed to reconstitute pantoprazole vial. For doses less than 40 mg Epic may default less than 10 mL NS. Pharmacist to change NS dispense amount to 10 mL., Indication: Gastroesophageal reflux disease (GERD) 0859 (Given - Provider: Ileana Grover RN)2007 (Given - Provider: Ariana Sahni RN) 813 (Given - Provider: Ileana Grover RN)2113 (Given - Provider: Ariana Sahni RN) 09 (Given - Provider: Ileana Grover RN) polyethylene glycol (MIRALAX) packet 17 Gram 17 Gram, Oral, DAILY, First dose on 05/02/25 at 1115, Until Discontinued, Routine 09 (Given - Provider: Ileana Grover RN) 08 (Given - Provider: Ileana Grover RN) 09 (Given - Provider: Ileana Grover RN) sennosides-docusate sodium (SENNA-S) 8.6-50 mg per tablet 1 Tablet 1 Tablet, Oral, TWO TIMES DAILY, First dose on 05/02/25 at 1000, Until Discontinued, Routine 0930 (Given - Provider: Ileana Grover RN)2007 (Given - Provider: Ariana Sahni RN) 815 (Given - Provider: Ileana Grover RN)2112 (Given - Provider: Ariana Sahni RN) 09 (Given - Provider: Ileana Grover RN) sodium chloride 0.9 % flush bag 25 mL 25 mL, IV, SEE ADMIN INSTRUCTIONS, Starting on 05/01/25 at 0219, Until Katlyn 05/06/25 at 1828, Routine sodium chloride flush injection 10 mL 10 mL, IV, EVERY 12 HOURS (BlD), First dose on 05/01/25 at 0900, Until Discontinued, Routine 0933 (Given - Provider: Ileana Grover RN)2008 (Given - Provider: Ariana Sahni RN) 814 (Given - Provider: Ileana Grover RN)2113 (Given - Provider: Ariana Sahni RN) 0900 (Due) sodium chloride flush injection 10 mL 10 mL, IV, SEE ADMIN INSTRUCTIONS, Starting on 05/01/25 at 0219, Until Katlyn 05/06/25 at 1828, Routine sodium chloride flush injection 10 mL 10 mL, IV, TWO TIMES DAILY, First dose on 05/01/25 at 1230, Until Discontinued, Routine 0933 (Given - Provider: Ileana Grover RN)2008 (Given - Provider: Ariana Sahni, RN) 0815 (Given - Provider: Ileana Grover RN)211 (Given - Provider: Ariana Sahni RN) 0900 (Due) Continuous Medication Order 05/04/2025 05/05/2025 05/06/2025 sodium chloride 0.9 % infusion () IV, at 75 mL/hr, CONTINUOUS, Starting on 05/03/25 at 1230, Until 05/05/25 at 0751, Routine 0201 (New Bag - Provider: Alyse Kilpatrick RN)1540 (Bag Switched - Provider: Ileana Grover RN) 0751 (Stopped - Provider: Ileana Grover RN - Comment: [Order ends at this time. Document the following action when infusion is complete: Stopped]) PRN Medication Order 05/04/2025 05/05/2025 05/06/2025 acetaminophen (TYLENOL) tablet 650 mg 650 mg, Oral, EVERY 6 HOURS PRN, Starting on 05/01/25 at 0219, Until Katlyn 05/06/25 at 1828, Other (See Comment), See admin instructions, Routine aluminum - magnesium - simethicone (MYLANTA) 200-200-20 mg/5 mL oral suspension 30 mL 30 mL, Oral, EVERY 2 HOURS PRN, Starting on 05/01/25 at 0219, Until Katlyn 05/06/25 at 1828, Indigestion, Routine HYDROcodone-acetaminophen (NORCO) 5-325 mg per tablet 1 Tablet 1 Tablet, Oral, EVERY 6 HOURS PRN, Starting on 05/01/25 at 1409, Until Katlyn 05/06/25 at 1828, Pain (See admin instructions), Routine HYDROmorphone (PF) (DILAUDID) injection 0.3 mg 0.3 mg, IV, EVERY 2 HOURS PRN, Starting on 05/01/25 at 1524, Until Katlyn 05/06/25 at 1828, Pain (See admin instructions), Routine hydrOXYzine HCL (ATARAX) tablet 25 mg 25 mg, Oral, EVERY 6 HOURS PRN, Starting on 05/03/25 at 1613, Until Katlyn 05/06/25 at 1828, Anxiety, Insomnia, Routine 2225 (Given - Provider: Ariana Sahni, NISHANT) melatonin tablet 3 mg 3 mg, Oral, NIGHTLY PRN, Starting on 05/01/25 at 0219, Until Katlyn 05/06/25 at 1828, Insomnia, Routine 0206 (Given - Provider: Alyse Kilpatrick RN) ondansetron (ZOFRAN) 4 mg/2 mL injection 4 mg 4 mg, IV, EVERY 6 HOURS PRN, Starting on 05/01/25 at 0219, Until Katlyn 05/06/25 at 1828, Nausea/Emesis, Routine documented in this encounter Additional Health Concerns Infection Onset Date Last Indicated Resolved Time MRSA Comment:Kapil 10/26/15 10/27/2015 10/27/2015 05/03/2025 2:24 PM CDT 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 Source: [facility]. 02/25/2025 documented as of this encounter Care Teams Addiction Counselor Relationship Specialty Start Date End Date Jose Bowers MD [address] [place] [id number] PCP - General 12/31/05 documented as of this encounter
--- OUTSIDE RECORDS SUMMARY | 2025-05-05 23:20 | XMS_ITS | Encounter Summary ---
Author Organization [employer] Address [address] [place] [address] Care Team Providers Care Copywriting Intern Name Role Phone Jose Bowers MD Primary Care Provider Unavailab le Encounter Details Date Type Department Care Team (Latest Contact Info) Description 05/06/2025 12:20 AM CDT - 05/06/2025 11:59 PM CDT Hospital Encounter [facility] Emergency Medical Services [address] [id number] Polo Sosa MD [address] [place] [address] Ambulance, [address] [id number] Discharge Disposition: Home or Self Care Social History Tobacco Use Types Packs/Day Years Used Date Smoking Tobacco: Unknown Alcohol Use Standard Drinks/Week Comments Never 0 [...] worry about transportation for future doctor visits, warehouse picker medication, etc.? No 2024 Housing Stability [...] on file Legal Sex Female 3:00 AM [employer] Gender Identity Not on file Sexual Orientation Not on file documented as of this encounter Medications at Time of Discharge [...] Saturday. 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 Source: [facility]. 02/25/2025 documented as of this encounter Care Teams Copywriting Intern Relationship Specialty Start Date End Date Jose Bowers MD [address] [place] [id number] PCP - General 12/31/05 documented as of this encounter
[2025-05-12] VITALS (17 sets, daily range): BP systolic 73–115; BP diastolic 47–74; PULSE 94–110; RESP 16–20; TEMP 36.6–36.9; O2SAT 93–99; BMI 40.2
--- OUTSIDE RECORDS SUMMARY | 2025-05-12 12:18 | XMS_ITS | Clinical Summary ---
Author Organization [facility] Address [address] [facility] Attn: Epic [place] [address] Care Team Providers Care Plate Grainer Name Role Phone Jose Bowers MD Primary Care Provider Unavailab le Allergies Active Allergy Reactions Criticality Noted Date Comments Penicillins Unknown Tramadol Unknown Medications ascorbic acid, vitamin C, (VITAMIN C) 500 mg tablet Take 500 mg by mouth daily. 10/28/19 16 Active spironolactone (ALDACTONE) 25 mg tablet Take 25 mg by mouth 2 times daily. 10/28/19 16 Active omeprazole (PriLOSEC) 20 mg Capsule, Delayed Release(E.C.) Take 20 mg by mouth daily. 10/28/19 16 Active bimatoprost (LUMIGAN) 0.01 % solution Administer 1 Drop in both eyes daily at bedtime. 10/28/19 16 Active warfarin (COUMADIN) 7.5 mg tablet Take 7.5 mg by mouth every Saturday, and Saturday. 10/26/19 16 Active methenamine hippurate (HIPREX) 1 gram Tablet Take 1 Gram by mouth 4 times daily With 500 mg of vitamin c . 10/28/19 16 Active docusate sodium (COLACE) 100 mg capsule Take 200 mg by mouth 2 times daily as needed for Constipation. 10/28/19 16 Active oxybutynin chloride (DITROPAN) 5 mg tablet Take 5 mg by mouth daily. 10/28/19 16 Active potassium chloride (KLOR-CON) 10 mEq Extended Release tablet Take 10 mEq by mouth 2 times daily with meals. 10/28/19 16 Active gabapentin (NEURONTIN) 300 mg capsule Take 300 mg by mouth 3 times daily. Active traZODone (DESYREL) 50 mg tablet Take 25 mg by mouth daily at bedtime. Active venlafaxine (EFFEXOR) 25 mg tablet Take 150 mg by mouth daily. Active baclofen (LIORESAL) 20 mg tablet Take 20 mg by mouth daily at bedtime. 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 Sepsis, unspecified Aggressive periodontitis, localized Encounters Date Type Department Care Team Description 05/06/2025 12:20 AM CDT - 05/06/2025 11:59 PM CDT Hospital Encounter [facility] Emergency Medical Services [facility] [address] [place] [phone] Arielle Sosa MD Ambulance, [facility] Discharge Disposition: Home or Self Care 05/05/2025 External Device Data ST[facility] ABSTRACTION Provider, Abstract 05/04/2025 External Device Data [facility] ABSTRACTION Provider, Abstract 05/04/2025 External Device Data ST[facility] ABSTRACTION Provider, Abstract 05/04/2025 External Device Data ST[facility] ABSTRACTION Provider, Abstract 05/02/2025 Travel 05/01/2025 1:50 AM CDT - 05/06/2025 4:27 PM CDT Hospital Encounter [facility] 3D Medical Telemetry [address] [place] [phone] [place] Ramsey MD Melton, Gregory A, DO Salana, Hari Krishna, MD Parastomal hernia with obstruction and without gangrene Discharge Disposition: Home or Self Care from Last 3 Months Immunizations Immunization Administration Dates Next Due Influenza [...] worry about transportation for future doctor visits, cigar packer and picker medication, etc.? 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 Gender Identity Not on file Sexual Orientation [...] Mass Index 39.6 05/04/2025 4:58 AM CDT Plan of Treatment Health Maintenance Due Date Last Done Comments Pre-Diabetes and Diabetes Screening 1968 DTAP/TDAP/TD VACCINES (1 - Tdap) 1987 HEPATITIS B VACCINES (1 of 3 - 19+ 3-dose series) 1987 HPV/Cotest (21-29) 1989 CERVICAL CANCER SCREENING 1998 HPV/Cotest (30-65) 1998 PAP SMEAR 1998 BREAST CANCER SCREENING 2008 COLORECTAL SCREENING 2013 Colorectal Cancer Screening 2013 FIT-DNA Q 3 years 2013 FIT/FOBT Q 1 year 2013 Flex Sig/CT Colonography Q 5 years 2013 ZOSTER VACCINE (1 of 2) 2018 Medicare Advantage ([place]) Preventative Visit/Annual Wellness Visit 07/08/2024 INFLUENZA VACCINE (#1) 2025 5, 03/10/2014, 04/03/2013, Additional history exists Procedures Procedure Name Priority Date/Time Associated Diagnosis Comments TELEMETRY REPORT 05/06/2025 3:09 AM CDT COMPREHENSIVE METABOLIC PANEL Routine 05/05/2025 7:02 AM CDT CBC WITH DIFFERENTIAL Routine 05/05/2025 7:02 AM CDT URINALYSIS W/REFLEX MICROSCOPIC Routine 05/04/2025 3:37 PM CDT URINE CULTURE Routine 05/04/2025 3:37 PM CDT COMPREHENSIVE METABOLIC PANEL Routine 05/04/2025 1:00 AM CDT CBC WITH DIFFERENTIAL Routine 05/04/2025 1:00 AM CDT COMPREHENSIVE METABOLIC PANEL Routine 05/03/2025 3:23 PM CDT CBC WITH DIFFERENTIAL Routine 05/03/2025 3:23 PM CDT LACTIC ACID [...] WITH DIFFERENTIAL Routine 05/01/2025 8:52 AM CDT COMPREHENSIVE METABOLIC PANEL Routine 05/01/2025 8:52 AM CDT MAGNESIUM LEVEL Routine 05/01/2025 8:52 AM CDT PHOSPHORUS Routine 05/01/2025 8:52 AM CDT PT EVAL AND TREAT Routine 05/01/2025 2:5 5 AM CDT OT EVAL AND TREAT Routine 05/01/2025 2:5 5 AM CDT from Last 3 Months Results * TELEMETRY REPORT (05/06/2025 3:09 AM CDT) us Provider Scanning ECG ORDERABLES Final Result * (ABNORMAL) CBC WITH DIFFERENTIAL (05/05/2025 7:02 AM CDT) Only the most recent of4 resultswithin the time period is included. [facility] WBC 9.3 4.8 - 10.8 K/uL 05/05/2025 7:32 AM CDT [facility] [place] RBC 3.34(L) 4.20 - 5.40 M/uL 05/05/2025 7:32 AM [facility] HEMOGLOBIN 9.8(L) 12.0 - 16.0 g/dL 05/05/2025 7:32 AM [facility] HEMATOCRIT 31.2(L) 36.0 - 46.0 % 05/05/2025 7:32 AM [facility] MCV 93.4 84.0 - 103.0 fL 05/05/2025 7:32 AM [facility] MCH 29.3 27.0 - 34.0 pg 05/05/2025 7:32 AM [facility] MCHC 31.4 30.0 - 35.0 g/dL 05/05/2025 7:32 AM [facility] PLATELETS 447(H) 140 - 440 K/uL 05/05/2025 7:32 AM [facility] MPV 10.2 8.9 - 12.8 fL 05/05/2025 7:32 AM [facility] RDW 13.7 11.0 - 14.5 % 05/05/2025 7:32 AM [facility] RDW-STDEV 46.1 37.0 - 54.0 fL 05/05/2025 7:32 AM [facility] NEUTROPHILS 72 42 - 75 % 05/05/2025 7:32 AM [facility] LYMPHOCYTES 16(L) 24 - 44 % 05/05/2025 7:32 AM [facility] MONOCYTES 10 2 - 10 % 05/05/2025 7:32 AM [facility] EOSINOPHILS 1 0 - 7 % 05/05/2025 7:32 AM [facility] BASOPHILS 0 0 - 1 % 05/05/2025 7:32 AM [facility] IMMATURE GRANULOCYTES 1 0 - 2 % 05/05/2025 7:32 AM [facility] NEUTROPHIL ABSOLUTE 6.67 2.00 - 8.00 K/uL 05/05/2025 7:32 AM [facility] LYMPHOCYTE ABSOLUTE 1.46 1.20 - 4.00 K/uL 05/05/2025 7:[address] [facility] MONOCYTE ABSOLUTE 0.95(H) 0.10 - 0.60 K/uL 05/05/2025 7:[address] [facility] EOSINOPHIL ABSOLUTE 0.08 0.00 - 0.70 K/uL 05/05/2025 7:[address] [facility] BASOPHILS ABSOLUTE 0.02 0.00 - 0.20 K/uL 05/05/2025 7:[address] [facility] IMMATURE GRANULOCYTES ABSOLUTE 0.10 0.00 - 0.10 K/uL 05/05/2025 7:[address] [facility] SMEAR REVIEWED: NA - Not Applicable 05/05/2025 7:32 AM [facility] Blood Venipuncture / Unknown 05/05/2025 7:02 AM CDT 05/05/2025 7:26 AM CDT us Arielle Sosa MD HEMATOLOGY ORDERABLES Fin al Result [facility] CLIA # [id number] [address] [place] [address] [place], [place] [id number] * (ABNORMAL) COMPREHENSIVE METABOLIC PANEL (05/05/2025 7:02 AM CDT) Only the most recent of4 resultswithin the time period is included. SODIUM 133(L) 136 - 145 mmol/L 05/05/2025 8:[address] [facility] POTASSIUM 3.8 3.5 - 5.1 mmol/L 05/05/2025 8:[address] [facility] CHLORIDE 96(L) 98 - 107 mmol/L 05/05/2025 8:[address] [facility] CO2 23 22 - 29 mmol/L 05/05/2025 8:[address] [facility] CALCIUM 9.1 8.6 - 10.0 mg/dL 05/05/2025 8:01 AM [facility] BUN 42(H) 6 - 20 mg/dL 05/05/2025 8:01 AM [facility] CREATININE 1.16(H) 0.51 - 0.95 mg/dL 05/05/2025 8:01 AM [facility] GLUCOSE 96 74 - 99 mg/dL 05/05/2025 8:01 AM [facility] TOTAL PROTEIN 6.8 6.4 - 8.3 g/dL 05/05/2025 8:01 AM [facility] ALBUMIN 3.3(L) 3.5 - 5.2 g/dL 05/05/2025 8:01 AM [facility] BILIRUBIN TOTAL 0.2 0.0 - 1.0 mg/dL 05/05/2025 8:01 AM [facility] ALKALINE PHOSPHATASE 161(H) 35 - 104 U/L 05/05/2025 8:01 AM [facility] AST 38(H) 10 - 35 U/L 05/05/2025 8:01 AM [facility] ALT 39(H) <=35 U/L 05/05/2025 8:01 AM [facility] GFR 55(L) >=60 mL/min/1. 73 sq meter 05/05/2025 8:01 AM [facility] Comment:eGFR calculated with 2020 CKD-EPI equation. Vegetarian diet, extremely high or low muscle mass, and may affect results. Cystatin C with Glomerular Filtration Rate is a suitable alternative for these patients. ANION GAP 14 9 - 20 mmol/L 05/05/2025 8:01 AM [facility] Blood Venipuncture / Unknown 05/05/2025 7:02 AM CDT 05/05/2025 7:26 AM T us Arielle Sosa MD CHEMISTRY ORDERABLES Teresa brown Result [facility] CLIA # [id number] [address] [address] [place] [address] * (ABNORMAL) URINALYSIS WITH REFLEX MICROSCOPIC (05/04/2025 3:37 PM CDT) COLOR UA Yellow Pale to Dark Yellow 05/04/2025 4:[address] [facility] CLARITY UA Cloudy(A) Clear 05/04/2025 4:[address] [facility] SPECIFIC GRAVITY UA 1.023 1.003 - 1.035 05/04/2025 4:[address] [facility] PH UA 7.0 5.0 - 8.0 05/04/2025 4:[address] [facility] LEUKOCYTE ESTERASE UA 3+(A) Negative 05/04/2025 4:[address] [facility] NITRITE UA Negative Negative 05/04/2025 4:[address] [facility] PROTEIN UA 1+(A) Negative 05/04/2025 4:[address] [facility] GLUCOSE UA Negative Negative 05/04/2025 4:[address] [facility] KETONES UA 1+(A) Negative 05/04/2025 4:[address] [facility] UROBILINOGEN UA <2.0 <2.0 mg/dL 4:[address] [facility] BILIRUBIN UA Negative Negative 05/04/2025 4:[address] [facility] BLOOD UA Negative Negative 05/04/2025 4:[address] [facility] WBC UA 51-100(A) 0 - 2 /hpf 05/04/2025 4:[address] [facility] RBC UA 3-5(A) 0 - 2 /hpf 05/04/2025 4:[address] [facility] BACTERIA UA Negative Negative /hpf 05/04/2025 4:[address] [facility] EPITHELIAL CELLS, URINE 0-5 0 - 5 /hpf 05/04/2025 4:[address] [facility] TRANSITIONAL EPI 0-2 0 - 2 /hpf 05/04/2025 4:[address] [facility] TRIPLE PHOS Present(A) Absent 05/04/2025 4:[address] [facility] CALCIUM OXALATE, URINE Present(A) Absent 05/04/2025 4:[address] [facility] Urine URINE SPECIMEN OBTAINED BY CLEAN CATCH PROCEDURE / Unknown Collection / Unknown 05/04/2025 3:37 PM CDT 05/04/2025 3:45 PM CDT Goran Machuca DO URINE ORDERABLES Final Resul t Performing Organization Address [facility] [place] de Phone Number [facility] CLIA # [id number] [facility] [address] * URINE CULTURE (05/04/2025 3:37 PM CDT) CULTURE No growth 05/05/2025 1:[address] [facility] Urine (Urine, indwelling (Mahajan) catheter) Collection / Unknown 05/04/2025 3:37 PM CDT 05/04/2025 3:44 PM CDT us Goran Machuca DO MICROBIOLOGY - GENERAL ORDER NADIYA Final Result Performing Organization Address [facility] [place] Co de Phone Number [facility] CLIA # [id number] [address] [place] [address] * LACTIC ACID (05/02/2025 3:41 PM CDT) Only the most recent of4 resultswithin the time period is included. LACTIC ACID 1.2 <=2.0 mmol/L 05/02/2025 4:18 PM CDT [facility] Blood Venipuncture / Unknown 05/02/2025 3:41 PM CDT 05/02/2025 3:50 PM CDT us Perri Young MD CHEMISTRY ORDERABLES Final Result [facility] CLIA # [id number] [id number] [place] [address] * XR ABDOMEN FOR FEEDING TUBE 1 [...] 2. Nasogastric tube tip overlies gastric body. Arielle Sosa MD DIAGNOSTIC IMAGING ORDERA BLES Final Result * (ABNORMAL) POC GLUCOSE (05/01/2025 8:06 PM CDT) GLUCOSE POC 102(H) 74 - 99 mg/dL 05/01/2025 8:06 PM CDT [facility] SPECIMEN SOURCE, GLUCOSE POC Capillary 05/01/2025 8:[address] [facility] Blood, whole 05/01/2025 8:06 PM CDT 05/01/2025 8:14 PM CDT Arielle Sosa MD POINT OF CARE TESTING Fin al Result Performing Organization Address City/State/[facility] Co de Phone Number [facility] CLIA # [id number] [address] [place] [address] * CT ABDOMEN PELVIS W CONTRAST (05/01/2025 [...] small bowel obstruction. Correlation needed. 2. Suprapubic Mahajan catheter in place with decompression of the [...] small bowel obstruction. Correlation needed. 2. Suprapubic Mahajan catheter in place with decompression of the urinary bladder. Mild urothelial thickening of bilateral ureters which can represent sequela mild ureteritis, correlation with urinalysis is recommended. No evidence of pyelonephritis. RESULTS WERE COMMUNICATED BY TELEPHONE TO DR. ARIELLE SOSA AT 05/01/2025 2:12 PM [address] Machuca DO CT ORDERABLES Final Result * PHOSPHORUS (05/01/2025 8:52 AM CDT) PHOSPHORUS 4.1 2.5 - 4.5 mg/dL 05/01/2025 9:28 AM CDT [facility] Blood Venipuncture / Unknown 05/01/2025 8:52 AM CDT 05/01/2025 8:57 AM CDT Goran Machuca DO CHEMISTRY ORDERABLES Final R [id number] [address] [place] [address] [place] [address] * MAGNESIUM LEVEL (05/01/2025 8:52 AM CDT) MAGNESIUM 2.4 1.6 - 2.6 mg/dL 05/01/2025 9:28 AM CDT [facility] Blood Venipuncture / Unknown 05/01/2025 8:52 AM CDT 05/01/2025 8:57 AM CDT us Goran Manzo Sven DO CHEMISTRY ORDERABLES Final R esult [facility] CLIA # [id number] [facility] [address] 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 Source: [facility] Phys[facility]. 02/25/2025 Insurance MEDICAID [facility] DUAL COMPLETE HMO [facility] [id number] Advance Directives For more information, please contact: [phone] * Full Code (Latest Code Status on File) Date Activated Date Inactivated Comments 05/01/2025 2:55 AM 05/06/2025 6:33 PM Care Teams Plate Grainer Relationship Specialty Start Date End Date Jose Bowers MD [address] [place] [address] PCP - General 12/31/05
--- OUTSIDE RECORDS SUMMARY | 2025-05-12 12:19 | XMS_ITS | Encounter Summary ---
Author Organization [facility] Address [address] [place] [address] Care Team Providers Care Lacquer Polisher Name Role Phone Jose Bowers MD Primary Care Provider Unavailab le Encounter Details Date Type Department Care Team (Late st Contact Info) Description 04/15/2006 Outpatient Historical [facility] Physical Med and Rehab- [place] [address] [place] [phone] Jose Bowers MD [address] [place] [address] Paraplegia (CMS/HCC) (Primary Dx) Social History Tobacco Use Types Packs/Day Years Used Date Smoking Tobacco: Never Assessed Comments Unknown Sex and Gender Information Value Date Recorded Sex Assigned at Not on file 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
--- OUTSIDE RECORDS SUMMARY | 2025-05-12 12:19 | XMS_ITS | Patient Health Record ---
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
--- OUTSIDE RECORDS SUMMARY | 2025-05-12 12:19 | XMS_ITS | Encounter Summary ---
Author Organization [facility] Address [address] [place] [address] Care Team Providers Care Wrinkle Chaser Name Role Phone Jose Bowers MD Primary Care Provider Unavailab le Encounter Details Date Type Department Care Team (Latest Contact Info) Description 02/05/2005 Outpatient Historical [facility] Acute Therapy Services [address] [place] [phone] Morenita Muñiz MD [address] [place] [address] ADMINISTRTVE ENCOUNT NOS (Primary Dx) Social History Tobacco Use Types Packs/Day Years Used Date Smoking Tobacco: Never Assessed Comments Unknown Sex and Gender Information Value Date Recorded Sex Assigned at Not on file 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
--- OUTSIDE RECORDS SUMMARY | 2025-05-12 12:19 | XMS_ITS | Encounter Summary ---
Author Organization [facility] Address [address] [place] [address] Care Team Providers Care Embedded Firmware Engineer Name Role Phone Jose Bowers MD Primary Care Provider Unavailab le Encounter Details Date Type Department Care Team (Latest Contact Info) Description 08/30/2006 Outpatient Historical [facility] Imaging Services [address] [place] [phone] Jose Bowers MD [address] [place] [address] Pain in Joint, Pelvic Region and Thigh (Primary Dx) Social History Tobacco Use Types Packs/Day Years Used Date Smoking Tobacco: Never Assessed Comments Unknown Sex and Gender Information Value Date Recorded Sex Assigned at Not on file 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 Gender Identity Not on file Sexual Orientation Not on file documented as of this encounter Plan of Treatment Not on file documented as of this encounter Procedures Procedure Name Priority Date/Time Associated Diagnosis Comments CBC WITH DIFFERENTIAL Routine 08/30/2006 12:42 PM HEALTH LEAD SEDIMENTATION RATE Routine 08/30/2006 12 :42 PM HEALTH LEAD CK Routine 08/30/2006 12:42 PM HEALTH LEAD documented in this encounter Results * (ABNORMAL) CK (08/30/2006 12:42 PM HEALTH LEAD) CK 201(H) 26 - 140 U/L INTERFACE SYSTEM Comment: As of 05 the [facility] has changed testing methods. The new reference ranges are Males 38-174 Females 26-140 The old referance ranges were Males 0-155 Females 0-133 08/30/2006 12:4 2 PM HEALTH LEAD Jose Bowers MD CHEMISTRY ORDERABLES Edited Performing Organization Address City/[facility] Co de Phone Number INTERFACE SYSTEM Refer to clinic/hospital department * (ABNORMAL) CBC WITH DIFFERENTIAL (08/30/2006 12:42 PM HEALTH LEAD) WBC 5.1 4.5 - 11.0 K/ul INTERFACE [...] K/ul INTERFACE SYSTEM 08/30/2006 12:4 2 PM HEALTH LEAD Jsoe Bowers MD HEMATOLOGY ORDERABLES Edited Performing Organization Address City/[facility] Co de Phone Number INTERFACE SYSTEM Refer to clinic/hospital department * (ABNORMAL) SEDIMENTATION RATE (08/30/2006 12:42 PM HEALTH LEAD) ESR (SEDIMENTATION RATE) 27(H) 0 - 22 mm/hr INTERFACE SYSTEM 08/30/2006 12:4 2 PM HEALTH LEAD Jose Bowers MD HEMATOLOGY ORDERABLES Edited INTERFACE SYSTEM Refer to clinic/hospital department documented in this encounter Visit Diagnoses Diagnosis Pain in joint, pelvic region and thigh- Primary documented in this encounter Additional Health Concerns Infection Onset Date Last Indicated Resolved Time MRSA Comment:Kapil 10/26/15 10/27/2015 10/27/2015 documented as of this encounter Care Teams Embedded Firmware Engineer Relationship Specialty Start Date End Date Jose Bowers MD [address] [place] [address] PCP - General 12/31/05 documented as of this encounter
--- OUTSIDE RECORDS SUMMARY | 2025-05-12 12:19 | XMS_ITS | Encounter Summary ---
Author Organization [facility] Address [address] [place] [address] Care Team Providers Care Per Diem Name Role Phone Jose Bowers MD Primary Care Provider Unavailab le Encounter Details Date Type Department Care Team (Late st Contact Info) Description 07/24/2006 Outpatient [facility] Physical Med and Rehab- [place] [address] [place] [phone] Jose Bowers MD [address] [place] [address] Paraplegia (CMS/HCC) (Primary Dx); Difficulty in Walking; Pain in Limb Social History Tobacco Use Types Packs/Day Years Used Date Smoking Tobacco: Never Assessed Comments Unknown Sex and Gender Information Value Date Recorded Sex Assigned at Not on file 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
--- OUTSIDE RECORDS SUMMARY | 2025-05-12 12:19 | XMS_ITS | Patient Health Record ---
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 Plan Of Treatment Future Test Test Name Order Date US Renal [id number] 11/06/2023 Abdomen [id number] 11/06/2023 Insurance Providers Payer Name Payer Address Payer Phone Subscriber Number Group Number Insured Name Patient Relationship to Insured Coverage Start Date Coverage End Date [facility] Medicare Advantage PPO [address] [address] [place] [address] [id number] Jami Gandhi Self - patient is the insured [place] Medicaid [address] [place] [address] [id number] [phone] [id number] Jami Gandhi Self - patient is the insured Medications Administered Medication Instructions Date of Administration Dosage Notes cefTRIAXone Sodium 01/23/[address] [facility] [place] 04 [phone] Medical (General) History Medical History [...]
--- OUTSIDE RECORDS SUMMARY | 2025-05-12 12:19 | XMS_ITS | Encounter Summary ---
Author Organization [facility] Address [address] [place] [address] Care Team Providers Care Health Analyst Name Role Phone Jose Bowers MD [...] on file Legal Sex Female 6:28 AM [employer] OFFIC[employer] Gender Identity Not on file Sexual [...] GLUCOSE POC 117(H) 60 - 100 mg/dL [facility] Venous blood specimen (specimen) 04/28/2008 12:22 PM CDT 04/29/2008 1:49 AM CDT us Riky Mejía MD POINT OF CARE TESTING Final Result Performing Organization Address [facility] de Phone Number INTERFACE SYSTEM Refer to clinic/hospital department [facility] CLIA# [id number] [address] [place] [address] * (ABNORMAL) POC GLUCOSE (04/28/2008 6:07 AM CDT) GLUCOSE POC 132(H) 60 - 100 mg/dL [facility] Venous blood specimen (specimen) 04/28/2008 6:07 AM CDT 04/29/2008 1:56 AM CDT us Riky Mejía MD POINT OF CARE TESTING Final Result Performing Organization Address [facility] Phone Number INTERFACE SYSTEM Refer to clinic/hospital department [facility] CLIA# [id number] [facility] [place] [address] * (ABNORMAL) BASIC METABOLIC PANEL (04/28/2008 5:15 AM CDT) ANION GAP 10 9 - 20 mEq/L [facility] SODIUM 137 136 - 145 mEq/L [facility] BUN 13 7 - 17 mg/dL [facility] CO2 30 22 - 32 mmol/l [facility] POTASSIUM 4.5 3.5 - 5.0 mEq/L [facility] Comment: Specimen slightly hemolyzed OSMOLALITY, CALCULATED 284 275 - 295 mOsm/Kg [facility] CREATININE 0.6(L) 0.7 - 1.2 mg/dL [facility] CALCIUM 9.0 8.4 - 10.5 mg/dL [facility] GLUCOSE 112(H) 70 - 110 mg/dL [facility] CHLORIDE 102 95 - 110 mEq/L [facility] Blood specimen (specimen) 04/28/2008 5:15 AM CDT 04/28/2008 5:29 AM CDT us Riky Mejía MD CHEMISTRY ORDERABLES Final Result Performing Organization Address [facility] de Phone Number INTERFACE SYSTEM Refer to clinic/hospital department [facility] CLIA# [id number] [address] [place] [address] * (ABNORMAL) POC GLUCOSE (04/27/2008 8:55 PM CDT) GLUCOSE POC 133(H) 60 - 100 mg/dL [facility] Venous blood specimen (specimen) 04/27/2008 8:55 PM CDT 04/28/2008 2:27 AM CDT us Riky Mejía MD POINT OF CARE TESTING Final Result Performing Organization Address [facility] Phone Number INTERFACE SYSTEM Refer to clinic/[facility] department [facility] CLIA# [id number] [facility] [place] [address] * (ABNORMAL) POC GLUCOSE (04/27/2008 4:38 PM CDT) GLUCOSE POC 112(H) 60 - 100 mg/dL [facility] COMMENT POC Follow Protocol [facility] Venous blood specimen (specimen) 04/27/2008 4:38 PM CDT 04/28/2008 12:35 AM CDT Riky Mejía MD POINT OF CARE TESTING Final Result Performing Organization Address [facility] de Phone Number INTERFACE SYSTEM Refer to clinic/hospital department [facility] CLIA# [id number] [address] [place] [address] * (ABNORMAL) POC GLUCOSE (04/27/2008 11:23 AM CDT) GLUCOSE POC 143(H) 60 - 100 mg/dL [facility] Venous blood specimen (specimen) 04/27/2008 11:23 AM CDT 04/28/2008 2:23 AM CDT Riky Mejía MD POINT OF CARE TESTING Final Result Performing Organization Address [facility] de Phone Number INTERFACE SYSTEM Refer to clinic/hospital department [facility] CLIA# [id number] [address] [place] [address] * (ABNORMAL) POC GLUCOSE (04/27/2008 6:38 AM CDT) GLUCOSE POC 122(H) 60 - 100 mg/dL [facility] Venous blood specimen (specimen) 04/27/2008 6:38 AM CDT 04/28/2008 2:33 AM CDT Riky Mejía MD POINT OF CARE TESTING Final Result Performing Organization Address [facility] de Phone Number INTERFACE SYSTEM Refer to clinic/[facility] CLIA# [id number] [address] [place] [address] * (ABNORMAL) POC GLUCOSE (04/26/2008 8:43 PM CDT) GLUCOSE POC 128(H) 60 - 100 mg/dL [facility] Venous blood specimen (specimen) 04/26/2008 8:43 PM CDT 04/27/2008 2:25 AM CDT Riky Mejía MD POINT OF CARE TESTING Final Result Performing Organization Address [facility] de Phone Number INTERFACE SYSTEM Refer to clinic/hospital department [facility] CLIA# [id number] [address] [place] [address] * (ABNORMAL) POC GLUCOSE (04/26/2008 4:53 PM CDT) GLUCOSE POC 113(H) 60 - 100 mg/dL [facility] Venous blood specimen (specimen) 04/26/2008 4:53 PM CDT 04/27/2008 2:26 AM CDT Riky Mejía MD POINT OF CARE TESTING Final Result Performing Organization Address [facility] Phone Number INTERFACE SYSTEM Refer to clinic/hospital department [facility] CLIA# [id number] [address] [place] [address] * (ABNORMAL) POC GLUCOSE (04/26/2008 11:28 AM CDT) GLUCOSE POC 125(H) 60 - 100 mg/dL [facility] Venous blood specimen (specimen) 04/26/2008 11:28 AM CDT 04/27/2008 2:25 AM CDT Riky Mejía MD POINT OF CARE TESTING Final Result Performing Organization Address [facility] de Phone Number INTERFACE SYSTEM Refer to clinic/hospital department [facility] CLIA# [id number] [address] [place] [address] * (ABNORMAL) POC GLUCOSE (04/26/2008 5:36 AM CDT) GLUCOSE POC 123(H) 60 - 100 mg/dL [facility] Venous blood specimen (specimen) 04/26/2008 5:36 AM CDT 04/27/2008 2:25 AM CDT Riky Mejía MD POINT OF CARE TESTING Final Result Performing Organization Address [facility] Phone Number INTERFACE SYSTEM Refer to clinic/hospital department [facility] CLIA# [id number] [address] [place] [address] * (ABNORMAL) TRANSFERRIN (04/26/2008 4:02 AM CDT) TRANSFERRIN 121.0(L) 204.0 - 376.0 mg/dL [facility] Blood specimen (specimen) 04/26/2008 4:02 AM CDT 04/26/2008 4:19 AM CDT Riky Mejía MD CHEMISTRY ORDERABLES Final Result Performing Organization Address [facility] Phone Number INTERFACE SYSTEM Refer to clinic/hospital department [facility] CLIA# [id number] [address] [place] [address] * PREALBUMIN (04/26/2008 4:02 AM CDT) PREALBUMIN 22.2 14.0 - 32.0 mg/dL [facility] Blood specimen (specimen) 04/26/2008 4:02 AM CDT 04/26/2008 4:19 AM CDT Riky Mejía MD CHEMISTRY ORDERABLES Final Result Performing Organization Address [facility] Phone Number INTERFACE SYSTEM Refer to clinic/[facility] CLIA# [id number] [address] [place] [address] * (ABNORMAL) PROTIME-INR (04/26/2008 4:02 AM CDT) PROTIME 16.1(H) 12.8 - 15.8 Secs [facility] Comment:As of 2007 not e change in normal range. INR 1.2 [facility] Comment: Expected Values for INR: DVT/PE Goal INR 2.5; range 2.0 - 3.0 Valve Replacement Tissue Goal INR 2.5; range 2.0 - 3.0 Mechanical Goal INR 3.0; range 2.5 - 3.5 POST-AZ Goal INR 2.5; range 2.0 - 3.0 or Goal 3.0; range 2.5 - 3.5 Atrial Fibrillation Goal INR 2.5; range 2.0 - 3.0 Ischemic Stroke Goal INR 2.5; range 2.0 - 3.0 For additional information see Guidelines for Anticoagulation available from the pharmacy [facility] [phone] Blood specimen (specimen) 04/26/2008 4:02 AM CDT 04/26/2008 4:19 AM CDT Riky Mejía MD HEMATOLOGY ORDERABLES Final Result INTERFACE SYSTEM Refer to clinic/hospital department [facility] CLIA# [id number] [address] [place] [address] * (ABNORMAL) CBC WITH DIFFERENTIAL (04/26/2008 4:02 AM CDT) BASOPHILS ABSOLUTE 0.1 0.0 - 0.2 K/ul [facility] HEMOGLOBIN 10.3(L) 12.0 - 16.0 g/dL [facility] MONOCYTES 11.6(H) 2.0 - 10.0 % [facility] RDW 18.2(H) 11.0 - 14.5 % [facility] MONOCYTE ABSOLUTE 0.9(H) 0.1 - 0.6 K/ul [facility] WBC 8.1 4.5 - 11.0 K/ul [facility] NEUTROPHILS 67.2 42.2 - 75.2 % [facility] MCH 29.3 27.0 - 34.0 pg [facility] NEUTROPHIL ABSOLUTE 5.5 2.0 - 8.0 K/ul [facility] HEMATOCRIT 33.7(L) 36.0 - 46.0 % [facility] PLATELETS 436 140 - 440 K/ul [facility] EOSINOPHIL ABSOLUTE 0.3 0.0 - 0.7 K/ul [facility] EOSINOPHILS 4.0 0.0 - 7.0 % [facility] PERIPHERAL BLOOD SMEAR REVIEW Automated Diff [facility] RBC 3.51(L) 4.20 - 5.40 Mil/ul [facility] MCHC 30.6 30.0 - 35.0 g/dL [facility] LYMPHOCYTE ABSOLUTE 1.3 1.2 - 4.0 K/ul [facility] LYMPHOCYTES 16.2(L) 24.0 - 44.0 % [facility] MCV 96.0 84.0 - 103.0 Fl [facility] BASOPHILS 1.0 0.0 - 1.0 % [facility] MPV 10.3 8.9 - 12.8 Fl [facility] Blood specimen (specimen) 04/26/2008 4:02 AM CDT 04/26/2008 4:19 AM CDT Narrative INTERFACE SYSTEM - 04/26/2008 4:35 AM CDT cbc with diff in am Riky Mejía MD HEMATOLOGY ORDERABLES Final Result INTERFACE SYSTEM Refer to clinic/hospital department [facility] CLIA# [id number] [address] [place] [address] * MAGNESIUM LEVEL (04/26/2008 4:02 AM CDT) MAGNESIUM 2.0 1.7 - 2.4 mg/dL [facility] Blood specimen (specimen) 04/26/2008 4:02 AM CDT 04/26/2008 4:19 AM CDT us Riky Mejía MD CHEMISTRY ORDERABLES Final Result Performing Organization Address [facility] Phone Number INTERFACE SYSTEM Refer to clinic/hospital department [facility] CLIA# [id number] [address] [place] [address] * TRIGLYCERIDE (04/26/2008 4:02 AM CDT) [facility] TRIGLYCERIDE 137 0 - 150 mg/dL [facility] Comment: On 11/10/2007, [facility] changed the triglyceride reference range to 0-150 mg/dl. This is the recommendation of the National Cholesterol Education Program (NCEP-ATPIII). Blood specimen (specimen) 04/26/2008 4:02 AM CDT 04/26/2008 4:19 AM CDT Riky Mejía MD CHEMISTRY ORDERABLES Final Result Performing Organization Address [facility] Phone Number INTERFACE SYSTEM Refer to clinic/hospital department [facility] CLIA# [id number] [address] [place] [address] * PHOSPHORUS (04/26/2008 4:02 AM CDT) [facility] PHOSPHORUS 4.1 2.5 - 4.6 mg/dL [facility] Blood specimen (specimen) 04/26/2008 4:02 AM CDT 04/26/2008 4:19 AM CDT Riky Mejía MD CHEMISTRY ORDERABLES Final Result Performing Organization Address [facility] Phone Number INTERFACE SYSTEM Refer to clinic/[facility] CLIA# [id number] [address] [place] [address] * (ABNORMAL) COMPREHENSIVE METABOLIC PANEL (04/26/2008 4:02 AM CDT) Pathologist [facility] OSMOLALITY, CALCULATED 284 275 - 295 mOsm/Kg [facility] GLOBULIN (CALC) 3.4 2.4 - 3.9 g/dL [facility] TOTAL PROTEIN 6.6 6.3 - 8.2 g/dL [facility] SODIUM 137 136 - 145 mEq/L [facility] BILIRUBIN TOTAL 0.8 0.3 - 1.2 mg/dL [facility] CO2 33(H) 22 - 32 mmol/l [facility] BUN 15 7 - 17 mg/dL [facility] AST 29 8 - 33 U/L [facility] ALBUMIN/GLOBULIN RATIO 0.9(L) 1.0 - 2.3 [facility] POTASSIUM 3.9 3.5 - 5.0 mEq/L [facility] ANION GAP 7(L) 9 - 20 mEq/L [facility] ALBUMIN 3.2(L) 3.5 - 5.0 g/dL [facility] CREATININE 0.6(L) 0.7 - 1.2 mg/dL [facility] ALT 27 4 - 36 IU/L [facility] CALCIUM 8.7 8.4 - 10.5 mg/dL [facility] GLUCOSE 110 70 - 110 mg/dL [facility] ALKALINE PHOSPHATASE 105(H) 25 - 100 U/L [facility] CHLORIDE 101 95 - 110 mEq/L [facility] Blood specimen (specimen) 04/26/2008 4:02 AM CDT 04/26/2008 4:19 AM CDT us Riky Mejía MD CHEMISTRY ORDERABLES Final Result INTERFACE SYSTEM Refer to clinic/hospital department [facility] CLIA# [id number] [address] [place] [address] * (ABNORMAL) BASIC METABOLIC PANEL (04/26/2008 4:02 AM CDT) GLUCOSE 110 70 - 110 mg/dL [facility] CHLORIDE 100 95 - 110 mEq/L [facility] ANION GAP 9 9 - 20 mEq/L [facility] SODIUM 137 136 - 145 mEq/L [facility] BUN 16 7 - 17 mg/dL [facility] CO2 32 22 - 32 mmol/l [facility] POTASSIUM 4.3 3.5 - 5.0 mEq/L [facility] OSMOLALITY, CALCULATED 285 275 - 295 mOsm/Kg [facility] CREATININE 0.5(L) 0.7 - 1.2 mg/dL [facility] CALCIUM 8.8 8.4 - 10.5 mg/dL [facility] Blood specimen (specimen) 04/26/2008 4:02 AM CDT 04/26/2008 4:19 AM CDT Riky Mejía MD CHEMISTRY ORDERABLES Final Result Performing Organization Address [facility] Phone Number INTERFACE SYSTEM Refer to clinic/hospital department [facility] CLIA# [id number] [address] [place] [address] * (ABNORMAL) POC GLUCOSE (04/25/2008 8:51 PM CDT) GLUCOSE POC 107(H) 60 - 100 mg/dL [facility] Venous blood specimen (specimen) 04/25/2008 8:51 PM CDT 04/26/2008 1:42 AM CDT Riky Mejía MD POINT OF CARE TESTING Final Result Performing Organization Address [facility] Phone Number INTERFACE SYSTEM Refer to clinic/hospital department [facility] CLIA# [id number] [address] [place] [address] * (ABNORMAL) POC GLUCOSE (04/25/2008 5:10 PM CDT) GLUCOSE POC 102(H) 60 - 100 mg/dL [facility] Venous blood specimen (specimen) 04/25/2008 5:10 PM CDT 04/26/2008 1:42 AM CDT Riky Mejía MD POINT OF CARE TESTING Final Result Performing Organization Address [facility] Phone Number INTERFACE SYSTEM Refer to clinic/hospital department [facility] CLIA# [id number] [address] [place] [address] * (ABNORMAL) POC GLUCOSE (04/25/2008 10:45 AM CDT) GLUCOSE POC 114(H) 60 - 100 mg/dL [facility] Venous blood specimen (specimen) 04/25/2008 10:45 AM CDT 04/26/2008 1:42 AM CDT Riky Mejía MD POINT OF CARE TESTING Final Result Performing Organization Address [facility] Phone Number INTERFACE SYSTEM Refer to clinic/hospital department [facility] CLIA# [id number] [address] [place] [address] * (ABNORMAL) POC GLUCOSE (04/25/2008 6:00 AM CDT) GLUCOSE POC 113(H) 60 - 100 mg/dL [facility] Venous blood specimen (specimen) 04/25/2008 6:00 AM CDT 04/26/2008 1:45 AM CDT Riky Mejía MD POINT OF CARE TESTING Final Result Performing Organization Address [facility] de Phone Number INTERFACE SYSTEM Refer to clinic/hospital department [facility] CLIA# [id number] [address] [place] [address] * (ABNORMAL) BASIC METABOLIC PANEL (04/25/2008 3:28 AM CDT) OSMOLALITY, CALCULATED 286 275 - 295 mOsm/Kg [facility] CREATININE 0.5(L) 0.7 - 1.2 mg/dL [facility] CALCIUM 8.9 8.4 - 10.5 mg/dL [facility] GLUCOSE 115(H) 70 - 110 mg/dL [facility] CHLORIDE 101 95 - 110 mEq/L [facility] SODIUM 136 136 - 145 mEq/L [facility] ANION GAP 10 9 - 20 mEq/L [facility] BUN 20(H) 7 - 17 mg/dL [facility] CO2 30 22 - 32 mmol/l [facility] POTASSIUM 4.9 3.5 - 5.0 mEq/L [facility] Blood specimen (specimen) 04/25/2008 3:28 AM CDT 04/25/2008 3:31 AM CDT Riky Mejía MD CHEMISTRY ORDERABLES Final Result Performing Organization Address [facility] Phone Number INTERFACE SYSTEM Refer to clinic/hospital department [facility] CLIA# [id number] [address] [place] [address] * (ABNORMAL) POC GLUCOSE (04/24/2008 8:30 PM CDT) GLUCOSE POC 121(H) 60 - 100 mg/dL [facility] Venous blood specimen (specimen) 04/24/2008 8:30 PM CDT 04/25/2008 1:43 AM CDT Riky Mejía MD POINT OF CARE TESTING Final Result Performing Organization Address [facility] Phone Number INTERFACE SYSTEM Refer to clinic/hospital department [facility] CLIA# [id number] [address] [place] [address] * (ABNORMAL) POC GLUCOSE (04/24/2008 5:10 PM CDT) GLUCOSE POC 109(H) 60 - 100 mg/dL [facility] Venous blood specimen (specimen) 04/24/2008 5:10 PM CDT 04/25/2008 1:43 AM CDT Riky Mejía MD POINT OF CARE TESTING Final Result Performing Organization Address [facility] de Phone Number INTERFACE SYSTEM Refer to clinic/hospital department [facility] CLIA# [id number] [address] [place] [address] * (ABNORMAL) POC GLUCOSE (04/24/2008 1:53 PM CDT) GLUCOSE POC 113(H) 60 - 100 mg/dL [facility] Venous blood specimen (specimen) 04/24/2008 1:53 PM CDT 04/25/2008 1:50 AM CDT Riky Mejía MD POINT OF CARE TESTING Final Result Performing Organization Address [facility] de Phone Number INTERFACE SYSTEM Refer to clinic/hospital department [facility] CLIA# [id number] [address] [place] [address] * (ABNORMAL) POC GLUCOSE (04/24/2008 11:40 AM CDT) GLUCOSE POC 160(H) 60 - 100 mg/dL [facility] Venous blood specimen (specimen) 04/24/2008 11:40 AM CDT 04/25/2008 1:50 AM CDT Riky Mejía MD POINT OF CARE TESTING Final Result Performing Organization Address [facility] de Phone Number INTERFACE SYSTEM Refer to clinic/hospital department [facility] CLIA# [id number] [address] [place] [address] * (ABNORMAL) POC GLUCOSE (04/24/2008 5:45 AM CDT) GLUCOSE POC 129(H) 60 - 100 mg/dL [facility] Venous blood specimen (specimen) 04/24/2008 5:45 AM CDT 04/25/2008 1:46 AM CDT Riky Mejía MD POINT OF CARE TESTING Final Result INTERFACE SYSTEM Refer to clinic/hospital department [facility] CLIA# [id number] [address] [place] [address] * (ABNORMAL) CBC WITH DIFFERENTIAL (04/24/2008 3:09 AM CDT) WBC 10.5 4.5 - 11.0 K/ul [facility] MCH 29.4 27.0 - 34.0 pg [facility] NEUTROPHIL ABSOLUTE 7.1 2.0 - 8.0 K/ul [facility] NEUTROPHILS 67.1 42.2 - 75.2 % [facility] HEMATOCRIT 32.8(L) 36.0 - 46.0 % [facility] EOSINOPHILS 4.3 0.0 - 7.0 % [facility] PLATELETS 491(H) 140 - 440 K/ul [facility] PERIPHERAL BLOOD SMEAR REVIEW Automated Diff [facility] EOSINOPHIL ABSOLUTE 0.5 0.0 - 0.7 K/ul [facility] RBC 3.44(L) 4.20 - 5.40 Mil/ul [facility] LYMPHOCYTES 17.3(L) 24.0 - 44.0 % [facility] MCHC 30.8 30.0 - 35.0 g/dL [facility] LYMPHOCYTE ABSOLUTE 1.8 1.2 - 4.0 K/ul [facility] MCV 95.3 84.0 - 103.0 Fl [facility] MPV 10.4 8.9 - 12.8 Fl [facility] BASOPHILS ABSOLUTE 0.1 0.0 - 0.2 K/ul [facility] BASOPHILS 1.3(H) 0.0 - 1.0 % [facility] HEMOGLOBIN 10.1(L) 12.0 - 16.0 g/dL [facility] RDW 17.8(H) 11.0 - 14.5 % [facility] MONOCYTE ABSOLUTE 1.1(H) 0.1 - 0.6 K/ul [facility] MONOCYTES 10.0 2.0 - 10.0 % [facility] Blood specimen (specimen) 04/24/2008 3:09 AM CDT 04/24/2008 3:21 AM CDT Riky Mejía MD HEMATOLOGY ORDERABLES Final Result Performing Organization Address [facility] Phone Number INTERFACE SYSTEM Refer to clinic/hospital department [facility] CLIA# [id number] [address] [place] [address] * (ABNORMAL) BASIC METABOLIC PANEL (04/24/2008 3:09 AM CDT) BUN 20(H) 7 - 17 mg/dL [facility] CO2 31 22 - 32 mmol/l [facility] POTASSIUM 4.6 3.5 - 5.0 mEq/L [facility] OSMOLALITY, CALCULATED 286 275 - 295 mOsm/Kg [facility] CREATININE 0.5(L) 0.7 - 1.2 mg/dL [facility] CALCIUM 8.8 8.4 - 10.5 mg/dL [facility] GLUCOSE 106 70 - 110 mg/dL [facility] CHLORIDE 100 95 - 110 mEq/L [facility] ANION GAP 11 9 - 20 mEq/L [facility] SODIUM 137 136 - 145 mEq/L [facility] Blood specimen (specimen) 04/24/2008 3:09 AM CDT 04/24/2008 3:21 AM CDT Riky Mejía MD CHEMISTRY ORDERABLES Final Result Performing Organization Address [facility] Phone Number INTERFACE SYSTEM Refer to clinic/hospital department [facility] CLIA# [id number] [address] [place] [address] * (ABNORMAL) POC GLUCOSE (04/23/2008 8:56 PM CDT) GLUCOSE POC 132(H) 60 - 100 mg/dL [facility] Venous blood specimen (specimen) 04/23/2008 8:56 PM CDT 04/24/2008 1:58 AM CDT us Riky Mejía MD POINT OF CARE TESTING Final Result Performing Organization Address [facility] de Phone Number INTERFACE SYSTEM Refer to clinic/hospital department [facility] CLIA# [id number] [address] [place] [address] * (ABNORMAL) POC GLUCOSE (04/23/2008 4:37 PM CDT) GLUCOSE POC 129(H) 60 - 100 mg/dL [facility] Venous blood specimen (specimen) 04/23/2008 4:37 PM CDT 04/24/2008 1:58 AM CDT us Riyk Mejía MD POINT OF CARE TESTING Final Result Performing Organization Address [facility] Phone Number INTERFACE SYSTEM Refer to clinic/hospital department [facility] CLIA# [id number] [address] [place] [address] * (ABNORMAL) POC GLUCOSE (04/23/2008 11:23 AM CDT) GLUCOSE POC 147(H) 60 - 100 mg/dL [facility] Venous blood specimen (specimen) 04/23/2008 11:23 AM CDT 04/24/2008 7:04 AM CDT us Riky Mejía MD POINT OF CARE TESTING Final Result Performing Organization Address [facility] de Phone Number INTERFACE SYSTEM Refer to clinic/hospital department [facility] CLIA# [id number] [address] [place] [address] * (ABNORMAL) POC GLUCOSE (04/23/2008 7:53 AM CDT) GLUCOSE POC 160(H) 60 - 100 mg/dL [facility] Venous blood specimen (specimen) 04/23/2008 7:53 AM CDT 04/24/2008 7:05 AM CDT Riky Mejía MD POINT OF CARE TESTING Final Result Performing Organization Address [facility] Phone Number INTERFACE SYSTEM Refer to clinic/hospital department [facility] CLIA# [id number] [address] [place] [address] * (ABNORMAL) BASIC METABOLIC PANEL (04/23/2008 3:33 AM CDT) BUN 18(H) 7 - 17 mg/dL [facility] CO2 30 22 - 32 mmol/l [facility] POTASSIUM 4.2 3.5 - 5.0 mEq/L [facility] OSMOLALITY, CALCULATED 283 275 - 295 mOsm/Kg [facility] CREATININE 0.4(L) 0.7 - 1.2 mg/dL [facility] CALCIUM 8.4 8.4 - 10.5 mg/dL [facility] GLUCOSE 131(H) 70 - 110 mg/dL [facility] CHLORIDE 104 95 - 110 mEq/L [facility] ANION GAP 5(L) 9 - 20 mEq/L [facility] SODIUM 135(L) 136 - 145 mEq/L [facility] Blood specimen (specimen) 04/23/2008 3:33 AM CDT 04/23/2008 3:39 AM CDT Riky Mejía MD CHEMISTRY ORDERABLES Final Result Performing Organization Address [facility] Phone Number INTERFACE SYSTEM Refer to clinic/hospital department [facility] CLIA# [id number] [address] [place] [address] * (ABNORMAL) POC GLUCOSE (04/23/2008 3:22 AM CDT) GLUCOSE POC 130(H) 60 - 100 mg/dL [facility] Venous blood specimen (specimen) 04/23/2008 3:22 AM CDT 04/24/2008 7:07 AM CDT Riky Mejía MD POINT OF CARE TESTING Final Result Performing Organization Address [facility] de Phone Number INTERFACE SYSTEM Refer to clinic/hospital department [facility] CLIA# [id number] [address] [place] [address] * (ABNORMAL) POC GLUCOSE (04/22/2008 11:30 PM CDT) GLUCOSE POC 155(H) 60 - 100 mg/dL [facility] Venous blood specimen (specimen) 04/22/2008 11:30 PM CDT 04/23/2008 7:12 AM CDT Riky Mejía MD POINT OF CARE TESTING Final Result Performing Organization Address [facility] Phone Number INTERFACE SYSTEM Refer to clinic/hospital department [facility] CLIA# [id number] [address] [place] [address] * (ABNORMAL) POC GLUCOSE (04/22/2008 7:54 PM CDT) GLUCOSE POC 158(H) 60 - 100 mg/dL [facility] Venous blood specimen (specimen) 04/22/2008 7:54 PM CDT 04/23/2008 3:46 PM CDT Riky Meíja MD POINT OF CARE TESTING Final Result Performing Organization Address [place]/[facility] de Phone Number INTERFACE SYSTEM Refer to clinic/hospital department [facility] CLIA# [id number] [address] [place] [address] * (ABNORMAL) POC GLUCOSE (04/22/2008 4:09 PM CDT) GLUCOSE POC 129(H) 60 - 100 mg/dL [facility] Venous blood specimen (specimen) 04/22/2008 4:09 PM CDT 04/23/2008 3:46 PM CDT Riky Mejía MD POINT OF CARE TESTING Final Result Performing Organization Address City/[facility] de Phone Number INTERFACE SYSTEM Refer to clinic/hospital department [facility] CLIA# [id number] [address] [place] [address] * (ABNORMAL) POC GLUCOSE (04/22/2008 11:36 AM CDT) GLUCOSE POC 118(H) 60 - 100 mg/dL [facility] Venous blood specimen (specimen) 04/22/2008 11:36 AM CDT 04/23/2008 7:12 AM CDT Riky Mejía MD POINT OF CARE TESTING Final Result Performing Organization Address [facility] Phone Number INTERFACE SYSTEM Refer to clinic/hospital department [facility] CLIA# [id number] [address] [place] [address] * (ABNORMAL) POC GLUCOSE (04/22/2008 7:55 AM CDT) GLUCOSE POC 160(H) 60 - 100 mg/dL [facility] Venous blood specimen (specimen) 04/22/2008 7:55 AM CDT 04/24/2008 7:07 AM CDT Riky Mejía MD POINT OF CARE TESTING Final Result Performing Organization Address [facility] de Phone Number INTERFACE SYSTEM Refer to clinic/hospital department [facility] CLIA# [id number] [address] [place] [address] * (ABNORMAL) BASIC METABOLIC PANEL (04/22/2008 3:26 AM CDT) BUN 15 7 - 17 mg/dL [facility] CO2 28 22 - 32 mmol/l [facility] OSMOLALITY, CALCULATED 300(H) 275 - 295 mOsm/Kg [facility] POTASSIUM 3.0(L) 3.5 - 5.0 mEq/L [facility] CREATININE 0.2(L) 0.7 - 1.2 mg/dL [facility] CALCIUM 6.7(L) 8.4 - 10.5 mg/dL [facility] GLUCOSE 109 70 - 110 mg/dL [facility] CHLORIDE 109 95 - 110 mEq/L [facility] SODIUM 147(H) 136 - 145 mEq/L [facility] ANION GAP 13 9 - 20 mEq/L [facility] Blood specimen (specimen) 04/22/2008 3:26 AM CDT 04/22/2008 3:31 AM CDT Riky Mejía MD CHEMISTRY ORDERABLES Final Result Performing Organization Address City/[facility] Co hi Phone Number INTERFACE SYSTEM Refer to clinic/hospital department [facility] CLIA# [id number] [address] [place] [address] * POC GLUCOSE (04/22/2008 3:17 AM CDT) GLUCOSE POC 73 60 - 100 mg/dL [facility] Venous blood specimen (specimen) 04/22/2008 3:17 AM CDT 04/22/2008 6:51 AM CDT Riky Mejía MD POINT OF CARE TESTING Final Result Performing Organization Address [facility] Phone Number INTERFACE SYSTEM Refer to clinic/hospital department [facility] CLIA# [id number] [address] [place] [address] * (ABNORMAL) POC GLUCOSE (04/21/2008 11:17 PM CDT) GLUCOSE POC 130(H) 60 - 100 mg/dL [facility] Venous blood specimen (specimen) 04/21/2008 11:17 PM CDT 04/22/2008 6:51 AM CDT us Riky Mejía MD POINT OF CARE TESTING Final Result Performing Organization Address [facility] de Phone Number INTERFACE SYSTEM Refer to clinic/hospital department [facility] CLIA# [id number] [address] [place] [address] * (ABNORMAL) POC GLUCOSE (04/21/2008 7:59 PM CDT) GLUCOSE POC 135(H) 60 - 100 mg/dL [facility] Venous blood specimen (specimen) 04/21/2008 7:59 PM CDT 04/22/2008 6:51 AM CDT us Riky Mejía MD POINT OF CARE TESTING Final Result Performing Organization Address [facility] de Phone Number INTERFACE SYSTEM Refer to clinic/hospital department [facility] CLIA# [id number] [address] [place] [address] * (ABNORMAL) POC GLUCOSE (04/21/2008 4:29 PM CDT) GLUCOSE POC 144(H) 60 - 100 mg/dL [facility] COMMENT POC Follow Protocol [facility] Venous blood specimen (specimen) 04/21/2008 4:29 PM CDT 04/22/2008 6:51 AM CDT us Riky Mejía MD POINT OF CARE TESTING Final Result Performing Organization Address [facility] de Phone Number INTERFACE SYSTEM Refer to clinic/hospital department [facility] CLIA# [id number] [address] [place] [address] * (ABNORMAL) POC GLUCOSE (04/21/2008 1:17 PM CDT) COMMENT POC Follow Protocol [facility] GLUCOSE POC 145(H) 60 - 100 mg/dL [facility] Venous blood specimen (specimen) 04/21/2008 1:17 PM CDT 04/22/2008 6:51 AM CDT Riky Mejía MD POINT OF CARE TESTING Final Result Performing Organization Address [facility] Phone Number INTERFACE SYSTEM Refer to clinic/hospital department [facility] CLIA# [id number] [address] [place] [address] * POTASSIUM LEVEL (04/21/2008 7:33 AM CDT) POTASSIUM 4.2 3.5 - 5.0 mEq/L [facility] Comment: Specimen slightly hemolyzed Blood specimen (specimen) 04/21/2008 7:33 AM CDT 04/21/2008 7:33 AM CDT Riky Mejía MD CHEMISTRY ORDERABLES Final Result Performing Organization Address [facility] Phone Number INTERFACE SYSTEM Refer to clinic/hospital department [facility] CLIA# [id number] [address] [place] [address] * (ABNORMAL) POC GLUCOSE (04/21/2008 7:26 AM CDT) GLUCOSE POC 146(H) 60 - 100 mg/dL [facility] Venous blood specimen (specimen) 04/21/2008 7:26 AM CDT 04/22/2008 6:51 AM CDT Riky Mejía MD POINT OF CARE TESTING Final Result Performing Organization Address [facility] Phone Number INTERFACE SYSTEM Refer to clinic/hospital department [facility] CLIA# [id number] [address] [place] [address] * (ABNORMAL) POC GLUCOSE (04/21/2008 2:58 AM CDT) Pathologist [facility] GLUCOSE POC 128(H) 60 - 100 mg/dL [facility] Venous blood specimen (specimen) 04/21/2008 2:58 AM CDT 04/21/2008 7:32 AM CDT Riky Mejía MD POINT OF CARE TESTING Final Result Performing Organization Address [facility] de Phone Number INTERFACE SYSTEM Refer to clinic/hospital department [facility] CLIA# [id number] [address] [place] [address] * (ABNORMAL) BASIC METABOLIC PANEL (04/21/2008 2:00 AM CDT) Pathologist [facility] ANION GAP 7(L) 9 - 20 mEq/L [facility] SODIUM 137 136 - 145 mEq/L [facility] BUN 19(H) 7 - 17 mg/dL [facility] CO2 36(H) 22 - 32 mmol/l [facility] POTASSIUM 3.8 3.5 - 5.0 mEq/L [facility] OSMOLALITY, CALCULATED 287 275 - 295 mOsm/Kg [facility] CREATININE 0.4(L) 0.7 - 1.2 mg/dL [facility] CALCIUM 8.4 8.4 - 10.5 mg/dL [facility] GLUCOSE 142(H) 70 - 110 mg/dL [facility] CHLORIDE 98 95 - 110 mEq/L [facility] Blood specimen (specimen) 04/21/2008 2:00 AM CDT 04/21/2008 2:00 AM CDT Riky Mejía MD CHEMISTRY ORDERABLES Final Result Performing Organization Address [facility] de Phone Number INTERFACE SYSTEM Refer to clinic/hospital department [facility] CLIA# [id number] [address] [place] [address] * (ABNORMAL) POC GLUCOSE (04/20/2008 11:57 PM CDT) Pathologist [facility] GLUCOSE POC 142(H) 60 - 100 mg/dL [facility] Venous blood specimen (specimen) 04/20/2008 11:57 PM CDT 04/21/2008 12:09 AM CDT Riky Mejía MD POINT OF CARE TESTING Final Result Performing Organization Address [facility] de Phone Number INTERFACE SYSTEM Refer to clinic/hospital department [facility] CLIA# [id number] [facility] [place] [address] * (ABNORMAL) BASIC METABOLIC PANEL (04/20/2008 11:40 PM CDT) [facility] POTASSIUM 3.8 3.5 - 5.0 mEq/L [facility] Comment: Specimen slightly hemolyzed OSMOLALITY, CALCULATED 286 275 - 295 mOsm/Kg [facility] CREATININE 0.5(L) 0.7 - 1.2 mg/dL [facility] CALCIUM 8.7 8.4 - 10.5 mg/dL [facility] GLUCOSE 119(H) 70 - 110 mg/dL [facility] CHLORIDE 95 95 - 110 mEq/L [facility] ANION GAP 13 9 - 20 mEq/L [facility] SODIUM 137 136 - 145 mEq/L [facility] BUN 20(H) 7 - 17 mg/dL [facility] CO2 33(H) 22 - 32 mmol/l [facility] Blood specimen (specimen) 04/20/2008 11:40 PM CDT 04/21/2008 5:43 AM CDT us Riky Mejía MD CHEMISTRY ORDERABLES Final Result Performing Organization Address [facility] Co de Phone Number INTERFACE SYSTEM Refer to clinic/hospital department [facility] CLIA# [id number] [address] [place] [address] * (ABNORMAL) POC GLUCOSE (04/20/2008 7:17 PM CDT) GLUCOSE POC 134(H) 60 - 100 mg/dL [facility] Venous blood specimen (specimen) 04/20/2008 7:17 PM CDT 04/21/2008 12:00 AM CDT Riky Mejía MD POINT OF CARE TESTING Final Result Performing Organization Address [facility] de Phone Number INTERFACE SYSTEM Refer to clinic/hospital department [facility] CLIA# [id number] [address] [place] [address] * POTASSIUM LEVEL (04/20/2008 4:09 PM CDT) POTASSIUM 4.1 3.5 - 5.0 mEq/L [facility] Blood specimen (specimen) 04/20/2008 4:09 PM CDT 04/20/2008 4:09 PM CDT Riky Mejía MD CHEMISTRY ORDERABLES Final Result Performing Organization Address [facility] de Phone Number INTERFACE SYSTEM Refer to clinic/hospital department [facility] CLIA# [id number] [address] [place] [address] * (ABNORMAL) POC GLUCOSE (04/20/2008 3:59 PM CDT) GLUCOSE POC 118(H) 60 - 100 mg/dL [facility] Venous blood specimen (specimen) 04/20/2008 3:59 PM CDT 04/21/2008 12:00 AM CDT Riky Mejía MD POINT OF CARE TESTING Final Result Performing Organization Address [facility] de Phone Number INTERFACE SYSTEM Refer to clinic/hospital department [facility] CLIA# [id number] [address] [place] [address] * (ABNORMAL) POC GLUCOSE (04/20/2008 12:02 PM CDT) GLUCOSE POC 158(H) 60 - 100 mg/dL [facility] Venous blood specimen (specimen) 04/20/2008 12:02 PM CDT 04/21/2008 12:00 AM CDT Riky Mejía MD POINT OF CARE TESTING Final Result INTERFACE SYSTEM Refer to clinic/hospital department [facility] CLIA# [id number] [address] [place] [address] * (ABNORMAL) POC ISTAT EG 7+ (04/20/2008 10:06 AM CDT) SPECIMEN TYPE Arterial [facility] Comment: Test Performed By [id number] Pulse OX: 97 Hemoglobin calculated from Hematocrit result PCO2 TEMP CORRECT 48(H) 35 - 45 mmHg [facility] HEMOGLOBIN POC 10.5 +/-3 g/dL 12.0 - 16.0 g/dL [facility] POTASSIUM 3.8 3.5 - 4.9 mEq/L [facility] PH TEMP CORRECT 7.47(H) 7.35 - 7.45 Unit [facility] HCO3 (CALC) POC 35.4(H) 22.0 - 26.0 mmol/l [facility] TCO2 (CALC) POC 37(H) 23 - 27 mmol/l [facility] FIO2 40 [facility] PO2 90 80 - 105 mmHg [facility] CALCIUM IONIZED 1.06(L) 1.12 - 1.32 mmol/l [facility] HEMATOCRIT ABG 31(L) 38 - 51 % [facility] PCO2 POC 48(H) 35 - 45 mmHg [facility] SODIUM 134(L) 138 - 146 mEq/L [facility] BASE EXCESS 12(H) -2 - 3 mmol/l [facility] PH 7.47(H) 7.35 - 7.45 Unit [facility] O2 SATURATION 97 95 - 98 % [facility] PO2 TEMP CORRECT 90 80 - 105 mmHg [facility] Arterial blood specimen (specimen) 04/20/2008 10:06 AM CDT 04/20/2008 11:14 AM CDT us Riky Mejía MD POINT OF CARE TESTING COM F inal Result Performing Organization Address [facility] de Phone Number INTERFACE SYSTEM Refer to clinic/hospital department [facility] CLIA# [id number] [address] [place] [address] * POTASSIUM LEVEL (04/20/2008 7:15 AM CDT) POTASSIUM 4.5 3.5 - 5.0 mEq/L [facility] Blood specimen (specimen) 04/20/2008 7:15 AM CDT 04/20/2008 7:20 AM CDT us Riky Mejía MD CHEMISTRY ORDERABLES Final Result Performing Organization Address [facility] de Phone Number INTERFACE SYSTEM Refer to clinic/hospital department [facility] CLIA# [id number] [address] [place] [address] * (ABNORMAL) POC GLUCOSE (04/20/2008 7:11 AM CDT) GLUCOSE POC 138(H) 60 - 100 mg/dL [facility] Venous blood specimen (specimen) 04/20/2008 7:11 AM CDT 04/20/2008 11:59 PM CDT us Riky Mejía MD POINT OF CARE TESTING Final Result Performing Organization Address [facility] de Phone Number INTERFACE SYSTEM Refer to clinic/hospital department [facility] CLIA# [id number] [address] [place] [address] * (ABNORMAL) POC ISTAT EG 7+ (04/20/2008 4:30 AM CDT) FIO2 30 [facility] HEMATOCRIT ABG 29(L) 38 - 51 % [facility] PO2 84 80 - 105 mmHg [facility] CALCIUM IONIZED 1.11(L) 1.12 - 1.32 mmol/l [facility] PCO2 POC 44 35 - 45 mmHg [facility] BASE EXCESS 14(H) -2 - 3 mmol/l [facility] SODIUM 131(L) 138 - 146 mEq/L [facility] PH 7.53(H) 7.35 - 7.45 Unit [facility] PO2 TEMP CORRECT 84 80 - 105 mmHg [facility] O2 SATURATION 97 95 - 98 % [facility] SPECIMEN TYPE Arterial [facility] Comment: Test Performed By [id number] PEEP: 06 Pressure Support: 14 Pulse OX: 96 Hemoglobin calculated from Hematocrit result PCO2 TEMP CORRECT 44 35 - 45 mmHg [facility] POTASSIUM 4.0 3.5 - 4.9 mEq/L [facility] HEMOGLOBIN POC 9.9 +/-3 g/dL 12.0 - 16.0 g/dL [facility] PH TEMP CORRECT 7.53(H) 7.35 - 7.45 Unit [facility] TCO2 (CALC) POC 38(H) 23 - 27 mmol/l [facility] HCO3 (CALC) POC 36.4(H) 22.0 - 26.0 mmol/l [facility] Arterial blood specimen (specimen) 04/20/2008 4:30 AM CDT 04/20/2008 5:54 AM CDT us Riky Mejía MD POINT OF CARE TESTING COM F inal Result INTERFACE SYSTEM Refer to clinic/hospital department [facility] CLIA# [id number] [address] [place] [address] * (ABNORMAL) DIFFERENTIAL, MANUAL (04/20/2008 4:04 AM CDT) POIKILOCYTES 1+(A) None Seen [facility] MONOCYTE 9 4 - 10 % [facility] RBC MORPHOLOGY Abnormal(A ) Normal [facility] BANDS 11(H) 0 - 6 % [facility] POLYCHROMASIA 1+(A) None Seen [facility] EOSINOPHILS 1 0 - 3 % [facility] ANISOCYTOSIS 1+(A) None Seen [facility] PLATELET EST. Normal Normal [facility] LYMPHOCYTES 17(L) 24 - 44 % [facility] NEUTROPHILS, SEG 62 36 - 66 % [facility] Blood specimen (specimen) 04/20/2008 4:04 AM CDT 04/20/2008 4:16 AM CDT Narrative INTERFACE SYSTEM - 04/20/2008 5:12 AM CDT Differential ordered by policy. Riky Mejía MD HEMATOLOGY ORDERABLES COM F inal Result INTERFACE SYSTEM Refer to clinic/hospital department [facility] CLIA# [id number] [address] [place] [address] * (ABNORMAL) PT AND APTT (04/20/2008 4:04 AM CDT) PTT 31.3 22.5 - 36.5 Secs [facility] Comment: Therapeutic Range: Hi-level PE/DVT heparin protocol 80.1 -95.0 sec Lo-level PE/DVT heparin protocol 67.1 - 80.0 sec Cardiac Heparin Protocol 67.1 - 85.0 sec Neuro Heparin Protocol 67.1 - 80.0 sec As of 09/25/2007 note change in APTT Normal Range. PROTIME 17.4(H) 12.8 - 15.8 Secs [facility] Comment:As of 2007 not e change in normal range. INR 1.3 [facility] Comment: Expected Values for INR: DVT/PE Goal INR 2.5; range 2.0 - 3.0 Valve Replacement Tissue Goal INR 2.5; range 2.0 - 3.0 Mechanical Goal INR 3.0; range 2.5 - 3.5 POST-AZ Goal INR 2.5; range 2.0 - 3.0 or Goal 3.0; range 2.5 - 3.5 Atrial Fibrillation Goal INR 2.5; range 2.0 - 3.0 Ischemic Stroke Goal INR 2.5; range 2.0 - 3.0 For additional information see Guidelines for Anticoagulation available from the pharmacy [facility] [phone] Blood specimen (specimen) 04/20/2008 4:04 AM CDT 04/20/2008 4:16 AM CDT Riky Mejía MD HEMATOLOGY ORDERABLES Edite d INTERFACE SYSTEM Refer to clinic/hospital department [facility] CLIA# [id number] [address] [place] [address] * (ABNORMAL) CBC WITH DIFFERENTIAL (04/20/2008 4:04 AM CDT) HEMATOCRIT 30.6(L) 36.0 - 46.0 % [facility] PLATELETS 436 140 - 440 K/ul [facility] RBC 3.30(L) 4.20 - 5.40 Mil/ul [facility] MCHC 32.0 30.0 - 35.0 g/dL [facility] MCV 92.7 84.0 - 103.0 Fl [facility] MPV 10.2 8.9 - 12.8 Fl [facility] HEMOGLOBIN 9.8(L) 12.0 - 16.0 g/dL [facility] RDW 17.3(H) 11.0 - 14.5 % [facility] WBC 13.0(H) 4.5 - 11.0 K/ul [facility] MCH 29.7 27.0 - 34.0 pg [facility] Blood specimen (specimen) 04/20/2008 4:04 AM CDT 04/20/2008 4:16 AM CDT Riky Mejía MD HEMATOLOGY ORDERABLES Edite d Performing Organization Address [facility] Phone Number INTERFACE SYSTEM Refer to clinic/hospital department [facility] CLIA# [id number] [address] [place] [address] * (ABNORMAL) BASIC METABOLIC PANEL (04/20/2008 4:04 AM CDT) BUN 19(H) 7 - 17 mg/dL [facility] CO2 33(H) 22 - 32 mmol/l [facility] POTASSIUM 4.1 3.5 - 5.0 mEq/L [facility] OSMOLALITY, CALCULATED 280 275 - 295 mOsm/Kg [facility] CREATININE 0.5(L) 0.7 - 1.2 mg/dL [facility] CALCIUM 8.6 8.4 - 10.5 mg/dL [facility] GLUCOSE 146(H) 70 - 110 mg/dL [facility] CHLORIDE 97 95 - 110 mEq/L [facility] ANION GAP 7(L) 9 - 20 mEq/L [facility] SODIUM 133(L) 136 - 145 mEq/L [facility] Blood specimen (specimen) 04/20/2008 4:04 AM CDT 04/20/2008 4:40 AM CDT us Riky Mejía MD CHEMISTRY ORDERABLES Final Result Performing Organization Address [facility] Phone Number INTERFACE SYSTEM Refer to clinic/hospital department [facility] CLIA# [id number] [address] [place] [address] * (ABNORMAL) POC GLUCOSE (04/20/2008 3:59 AM CDT) GLUCOSE POC 160(H) 60 - 100 mg/dL [facility] Venous blood specimen (specimen) 04/20/2008 3:59 AM CDT 04/20/2008 6:38 AM CDT Riky Mejía MD POINT OF CARE TESTING Final Result Performing Organization Address [facility] Phone Number INTERFACE SYSTEM Refer to clinic/hospital department [facility] CLIA# [id number] [address] [place] [address] * POTASSIUM LEVEL (04/19/2008 11:37 PM CDT) POTASSIUM 4.3 3.5 - 5.0 mEq/L [facility] Blood specimen (specimen) 04/19/2008 11:37 PM CDT 04/19/2008 11:46 PM CDT Riky Mejía MD CHEMISTRY ORDERABLES Final Result Performing Organization Address [facility] Phone Number INTERFACE SYSTEM Refer to clinic/hospital [facility] CLIA# [id number] [address] [place] [address] * (ABNORMAL) POC GLUCOSE (04/19/2008 11:30 PM CDT) GLUCOSE POC 156(H) 60 - 100 mg/dL [facility] Venous blood specimen (specimen) 04/19/2008 11:30 PM CDT 04/20/2008 6:37 AM CDT us Riky Mejía MD POINT OF CARE TESTING Final Result Performing Organization Address [facility] Phone Number INTERFACE SYSTEM Refer to clinic/hospital [facility] CLIA# [id number] [address] [place] [address] * (ABNORMAL) DIFFERENTIAL, MANUAL (04/19/2008 8:35 PM CDT) MONOCYTE 12(H) 4 - 10 % [facility] ANISOCYTOSIS 1+(A) None Seen [facility] BANDS 18(H) 0 - 6 % [facility] PLATELET EST. Normal Normal [facility] METAMYELOCYTE 2(H) 0 - 1 % [facility] POLYCHROMASIA 1+(A) None Seen [facility] LYMPHOCYTES 6(L) 24 - 44 % [facility] RBC MORPHOLOGY Abnormal(A ) Normal [facility] NEUTROPHILS, SEG 57 36 - 66 % [facility] MYELOCYTES 5(H) <=1 % [facility] GIANT PLATELETS Present(A) [facility] Blood specimen (specimen) 04/19/2008 8:35 PM CDT 04/19/2008 8:35 PM CDT Narrative INTERFACE SYSTEM - 04/19/2008 10:07 PM CDT Differential ordered by policy. Riky Mejía MD HEMATOLOGY ORDERABLES COM F inal Result INTERFACE SYSTEM Refer to clinic/hospital department [facility] CLIA# [id number] [address] [place] [address] * (ABNORMAL) PT AND APTT (04/19/2008 8:35 PM CDT) INR 1.3 [facility] Comment: Expected Values for INR: DVT/PE Goal INR 2.5; range 2.0 - 3.0 Valve Replacement Tissue Goal INR 2.5; range 2.0 - 3.0 Mechanical Goal INR 3.0; range 2.5 - 3.5 POST-AZ Goal INR 2.5; range 2.0 - 3.0 or Goal 3.0; range 2.5 - 3.5 Atrial Fibrillation Goal INR 2.5; range 2.0 - 3.0 Ischemic Stroke Goal INR 2.5; range 2.0 - 3.0 For additional information see Guidelines for Anticoagulation available from the pharmacy [facility] [phone] PROTIME 17.0(H) 12.8 - 15.8 Secs [facility] Comment:As of 2007 not e change in normal range. PTT 33.0 22.5 - 36.5 Secs [facility] Comment: Therapeutic Range: Hi-level PE/DVT heparin [...] HEMATOLOGY ORDERABLES Edite d Performing Organization Address City/State/[facility] Co de Phone Number INTERFACE SYSTEM Refer to clinic/hospital department [facility] CLIA# [id number] [address] [place] [address] * (ABNORMAL) CBC WITH DIFFERENTIAL (04/19/2008 8:35 PM CDT) RBC 3.37(L) 4.20 - 5.40 Mil/ul [facility] MCHC 31.6 30.0 - 35.0 g/dL [facility] LYMPHOCYTE ABSOLUTE 1.8 1.2 - 4.0 K/ul [facility] LYMPHOCYTES 12.2(L) 24.0 - 44.0 % [facility] MCV 92.9 84.0 - 103.0 Fl [facility] BASOPHILS 0.9 0.0 - 1.0 % [facility] MPV 10.4 8.9 - 12.8 Fl [facility] NRBC 1 <=1 [facility] BASOPHILS ABSOLUTE 0.1 0.0 - 0.2 K/ul [facility] HEMOGLOBIN 9.9(L) 12.0 - 16.0 g/dL [facility] MONOCYTES 10.2(H) 2.0 - 10.0 % [facility] RDW 17.4(H) 11.0 - 14.5 % [facility] MONOCYTE ABSOLUTE 1.5(H) 0.1 - 0.6 K/ul [facility] NEUTROPHILS 75.3(H) 42.2 - 75.2 % [facility] MCH 29.4 27.0 - 34.0 pg [facility] WBC 14.9(H) 4.5 - 11.0 K/ul [facility] Comment: WBC Corrected for Nucleated RBC'S NEUTROPHIL ABSOLUTE 11.3(H) 2.0 - 8.0 K/ul [facility] HEMATOCRIT 31.3(L) 36.0 - 46.0 % [facility] PLATELETS 459(H) 140 - 440 K/ul [facility] EOSINOPHIL ABSOLUTE 0.2 0.0 - 0.7 K/ul [facility] EOSINOPHILS 1.4 0.0 - 7.0 % [facility] Blood specimen (specimen) 04/19/2008 8:35 PM CDT 04/19/2008 8:35 PM CDT us Riky Mejía MD HEMATOLOGY ORDERABLES Edite d Performing Organization Address City/[facility] Co de Phone Number INTERFACE SYSTEM Refer to clinic/hospital department [facility] CLIA# [id number] [address] [place] [address] * (ABNORMAL) POC GLUCOSE (04/19/2008 8:31 PM CDT) GLUCOSE POC 115(H) 60 - 100 mg/dL [facility] Venous blood specimen (specimen) 04/19/2008 8:31 PM CDT 04/20/2008 6:37 AM CDT Riky Mejía MD POINT OF CARE TESTING Final Result Performing Organization Address City/[facility] Co de Phone Number INTERFACE SYSTEM Refer to clinic/hospital department [facility] CLIA# [id number] [address] [place] [address] * XR CHEST PA OR AP (04/19/2008 [...] GLUCOSE POC 125(H) 60 - 100 mg/dL [facility] Venous blood specimen (specimen) 04/19/2008 4:58 PM CDT 04/20/2008 7:00 AM CDT Riky Mejía MD POINT OF CARE TESTING Final Result Performing Organization Address [facility] Phone Number INTERFACE SYSTEM Refer to clinic/hospital department [facility] CLIA# [id number] [address] [place] [address] * POTASSIUM LEVEL (04/19/2008 4:30 PM CDT) POTASSIUM 4.0 3.5 - 5.0 mEq/L [facility] Blood specimen (specimen) 04/19/2008 4:30 PM CDT 04/19/2008 4:30 PM CDT Riky Mejía MD CHEMISTRY ORDERABLES Final Result Performing Organization Address [facility] Phone Number INTERFACE SYSTEM Refer to clinic/hospital department [facility] CLIA# [id number] [address] [place] [address] * (ABNORMAL) POC GLUCOSE (04/19/2008 12:04 PM CDT) GLUCOSE POC 139(H) 60 - 100 mg/dL [facility] Venous blood specimen (specimen) 04/19/2008 12:04 PM CDT 04/20/2008 7:00 AM CDT us Riky Mejía MD POINT OF CARE TESTING Final Result Performing Organization Address [facility] Phone Number INTERFACE SYSTEM Refer to clinic/hospital department [facility] CLIA# [id number] [address] [place] [address] * (ABNORMAL) POC GLUCOSE (04/19/2008 8:28 AM CDT) GLUCOSE POC 144(H) 60 - 100 mg/dL [facility] Venous blood specimen (specimen) 04/19/2008 8:28 AM CDT 04/20/2008 7:00 AM CDT Riky Mejía MD POINT OF CARE TESTING Final Result INTERFACE SYSTEM Refer to clinic/hospital department [facility] CLIA# [id number] [address] [place] [address] * XR CHEST PA OR AP (04/19/2008 [...] 3:20 AM CDT) ANISOCYTOSIS 1+(A) None Seen [facility] LYMPHOCYTES 15(L) 24 - 44 % [facility] MYELOCYTES 1 <=1 % [facility] MONOCYTE 4 4 - 10 % [facility] NEUTROPHILS, SEG 73(H) 36 - 66 % [facility] POIKILOCYTES 1+(A) None Seen [facility] PLATELET EST. Normal Normal [facility] BANDS 6 0 - 6 % [facility] POLYCHROMASIA Present(A) None Seen [facility] EOSINOPHILS 1 0 - 3 % [facility] Blood specimen (specimen) 04/19/2008 3:20 AM CDT 04/19/2008 3:20 AM CDT Narrative INTERFACE SYSTEM - 04/19/2008 3:58 AM CDT Differential ordered by policy. us Riky Mejía MD HEMATOLOGY ORDERABLES COM F inal Result INTERFACE SYSTEM Refer to clinic/hospital department [facility] CLIA# [id number] [address] [place] [address] * (ABNORMAL) COMPREHENSIVE METABOLIC PANEL (04/19/2008 3:20 AM CDT) GLUCOSE 138(H) 70 - 110 mg/dL [facility] CHLORIDE 94(L) 95 - 110 mEq/L [facility] ALBUMIN/GLOBULIN RATIO 0.9(L) 1.0 - 2.3 [facility] ALKALINE PHOSPHATASE 209(H) 25 - 100 U/L [facility] SODIUM 136 136 - 145 mEq/L [facility] BILIRUBIN TOTAL 1.6(H) 0.3 - 1.2 mg/dL [facility] TOTAL PROTEIN 5.6(L) 6.3 - 8.2 g/dL [facility] BUN 19(H) 7 - 17 mg/dL [facility] AST 73(H) 8 - 33 U/L [facility] CO2 37(H) 22 - 32 mmol/l [facility] ANION GAP 9 9 - 20 mEq/L [facility] ALBUMIN 2.6(L) 3.5 - 5.0 g/dL [facility] POTASSIUM 3.9 3.5 - 5.0 mEq/L [facility] GLOBULIN (CALC) 3.0 2.4 - 3.9 g/dL [facility] CREATININE 0.5(L) 0.7 - 1.2 mg/dL [facility] CALCIUM 8.6 8.4 - 10.5 mg/dL [facility] OSMOLALITY, CALCULATED 285 275 - 295 mOsm/Kg [facility] ALT 68(H) 4 - 36 IU/L [facility] Blood specimen (specimen) 04/19/2008 3:20 AM CDT 04/19/2008 3:20 AM CDT us Riky Mejía MD CHEMISTRY ORDERABLES Final Result INTERFACE SYSTEM Refer to clinic/hospital department [facility] CLIA# [id number] [address] [place] [address] * (ABNORMAL) CBC WITH DIFFERENTIAL (04/19/2008 3:20 AM CDT) WBC 13.9(H) 4.5 - 11.0 K/ul [facility] MCH 29.1 27.0 - 34.0 pg [facility] HEMATOCRIT 30.7(L) 36.0 - 46.0 % [facility] PLATELETS 390 140 - 440 K/ul [facility] RBC 3.33(L) 4.20 - 5.40 Mil/ul [facility] MCHC 31.6 30.0 - 35.0 g/dL [facility] MPV 10.2 8.9 - 12.8 Fl [facility] MCV 92.2 84.0 - 103.0 Fl [facility] HEMOGLOBIN 9.7(L) 12.0 - 16.0 g/dL [facility] RDW 16.9(H) 11.0 - 14.5 % [facility] Blood specimen (specimen) 04/19/2008 3:20 AM CDT 04/19/2008 3:20 AM CDT Riky Mejía MD HEMATOLOGY ORDERABLES Edite d Performing Organization Address [facility] Phone Number INTERFACE SYSTEM Refer to clinic/hospital department [facility] CLIA# [id number] [address] [place] [address] * POTASSIUM LEVEL (04/18/2008 11:41 PM CDT) POTASSIUM 3.9 3.5 - 5.0 mEq/L [facility] Blood specimen (specimen) 04/18/2008 11:41 PM CDT 04/18/2008 11:41 PM CDT Riky Mejía MD CHEMISTRY ORDERABLES Final Result Performing Organization Address [facility] Phone Number INTERFACE SYSTEM Refer to clinic/hospital department [facility] CLIA# [id number] [address] [place] [address] * POTASSIUM LEVEL (04/18/2008 3:49 PM CDT) POTASSIUM 4.0 3.5 - 5.0 mEq/L [facility] Blood specimen (specimen) 04/18/2008 3:49 PM CDT 04/18/2008 3:49 PM CDT Riky Mejía MD CHEMISTRY ORDERABLES Final Result Performing Organization Address City/[facility] de Phone Number INTERFACE SYSTEM Refer to clinic/hospital department [facility] CLIA# [id number] [address] [place] [address] * (ABNORMAL) POC GLUCOSE (04/18/2008 7:29 AM CDT) Pathologist [facility] GLUCOSE POC 153(H) 60 - 100 mg/dL [facility] Venous blood specimen (specimen) 04/18/2008 7:29 AM CDT 04/19/2008 6:47 AM CDT Riky Mejía MD POINT OF CARE TESTING Final Result Performing Organization Address [facility] de Phone Number INTERFACE SYSTEM Refer to clinic/hospital department [facility] CLIA# [id number] [address] [place] [address] * (ABNORMAL) CBC WITH DIFFERENTIAL (04/18/2008 3:29 AM CDT) [facility] RDW 17.0(H) 11.0 - 14.5 % [facility] BASOPHILS ABSOLUTE 0.2 0.0 - 0.2 K/ul [facility] BASOPHILS 1.0 0.0 - 1.0 % [facility] WBC 14.5(H) 4.5 - 11.0 K/ul [facility] MCH 29.0 27.0 - 34.0 pg [facility] MONOCYTE ABSOLUTE 1.1(H) 0.1 - 0.6 K/ul [facility] MONOCYTES 7.3 2.0 - 10.0 % [facility] HEMATOCRIT 30.5(L) 36.0 - 46.0 % [facility] NEUTROPHIL ABSOLUTE 12.1(H) 2.0 - 8.0 K/ul [facility] NEUTROPHILS 83.1(H) 42.2 - 75.2 % [facility] PLATELETS 332 140 - 440 K/ul [facility] RBC 3.31(L) 4.20 - 5.40 Mil/ul [facility] MCHC 31.5 30.0 - 35.0 g/dL [facility] EOSINOPHILS 1.3 0.0 - 7.0 % [facility] PERIPHERAL BLOOD SMEAR REVIEW Automated Diff [facility] EOSINOPHIL ABSOLUTE 0.2 0.0 - 0.7 K/ul [facility] MCV 92.1 84.0 - 103.0 Fl [facility] LYMPHOCYTES 7.3(L) 24.0 - 44.0 % [facility] MPV 10.3 8.9 - 12.8 Fl [facility] LYMPHOCYTE ABSOLUTE 1.1(L) 1.2 - 4.0 K/ul [facility] HEMOGLOBIN 9.6(L) 12.0 - 16.0 g/dL [facility] Blood specimen (specimen) 04/18/2008 3:29 AM CDT 04/18/2008 3:35 AM CDT us Riky Mejía MD HEMATOLOGY ORDERABLES Edite d INTERFACE SYSTEM Refer to clinic/hospital department [facility] CLIA# [id number] [address] [place] [address] * (ABNORMAL) COMPREHENSIVE METABOLIC PANEL (04/18/2008 3:29 AM CDT) AST 133(H) 8 - 33 U/L [facility] ALBUMIN/GLOBULIN RATIO 0.9(L) 1.0 - 2.3 [facility] POTASSIUM 4.1 3.5 - 5.0 mEq/L [facility] ANION GAP 6(L) 9 - 20 mEq/L [facility] ALBUMIN 2.4(L) 3.5 - 5.0 g/dL [facility] CREATININE 0.4(L) 0.7 - 1.2 mg/dL [facility] ALT 75(H) 4 - 36 IU/L [facility] CALCIUM 8.6 8.4 - 10.5 mg/dL [facility] GLUCOSE 134(H) 70 - 110 mg/dL [facility] ALKALINE PHOSPHATASE 167(H) 25 - 100 U/L [facility] CHLORIDE 96 95 - 110 mEq/L [facility] OSMOLALITY, CALCULATED 287 275 - 295 mOsm/Kg [facility] GLOBULIN (CALC) 2.8 2.4 - 3.9 g/dL [facility] TOTAL PROTEIN 5.2(L) 6.3 - 8.2 g/dL [facility] SODIUM 137 136 - 145 mEq/L [facility] BILIRUBIN TOTAL 2.1(H) 0.3 - 1.2 mg/dL [facility] CO2 39(H) 22 - 32 mmol/l [facility] BUN 20(H) 7 - 17 mg/dL [facility] Blood specimen (specimen) 04/18/2008 3:29 AM CDT 04/18/2008 3:35 AM CDT us Riky Mejía MD CHEMISTRY ORDERABLES Final Result Performing Organization Address [facility] de Phone Number INTERFACE SYSTEM Refer to clinic/hospital department [facility] CLIA# [id number] [address] [place] [address] * POTASSIUM LEVEL (04/17/2008 6:15 PM CDT) POTASSIUM 3.8 3.5 - 5.0 mEq/L [facility] Blood specimen (specimen) 04/17/2008 6:15 PM CDT 04/17/2008 6:19 PM CDT Narrative INTERFACE SYSTEM - 04/17/2008 6:44 PM CDT stat us Riky Mejía MD CHEMISTRY ORDERABLES Final Result Performing Organization Address City/[facility] de Phone Number INTERFACE SYSTEM Refer to clinic/hospital department [facility] CLIA# [id number] [address] [place] [address] * (ABNORMAL) POC GLUCOSE (04/17/2008 6:10 PM CDT) GLUCOSE POC 103(H) 60 - 100 mg/dL [facility] Venous blood specimen (specimen) 04/17/2008 6:10 PM CDT 04/18/2008 7:19 AM CDT Riky Mejía MD POINT OF CARE TESTING Final Result Performing Organization Address [facility] de Phone Number INTERFACE SYSTEM Refer to clinic/hospital department [facility] CLIA# [id number] [facility] [place] [address] * (ABNORMAL) POC GLUCOSE (04/17/2008 8:18 AM CDT) GLUCOSE POC 149(H) 60 - 100 mg/dL [facility] Venous blood specimen (specimen) 04/17/2008 8:18 AM CDT 04/18/2008 7:18 AM CDT Riky Mejía MD POINT OF CARE TESTING Final Result Performing Organization Address [facility] de Phone Number INTERFACE SYSTEM Refer to clinic/hospital department [facility] CLIA# [id number] [facility] [place] [address] * (ABNORMAL) POC ISTAT EG 7+ (04/17/2008 5:31 AM CDT) SODIUM 138 138 - 146 mEq/L [facility] PH 7.49(H) 7.35 - 7.45 Unit [facility] PO2 TEMP CORRECT 92 80 - 105 mmHg [facility] O2 SATURATION 98 95 - 98 % [facility] SPECIMEN TYPE Arterial [facility] Comment: Test Performed By [id number] Tidal volume: 450 PEEP: 08 Rate: 10 Pulse OX: 100 Hemoglobin calculated from Hematocrit result PCO2 TEMP CORRECT 50(H) 35 - 45 mmHg [facility] POTASSIUM 3.6 3.5 - 4.9 mEq/L [facility] HEMOGLOBIN POC 9.5 +/-3 g/dL 12.0 - 16.0 g/dL [facility] PH TEMP CORRECT 7.49(H) 7.35 - 7.45 Unit [facility] TCO2 (CALC) POC 40(H) 23 - 27 mmol/l [facility] HCO3 (CALC) POC 38.0(H) 22.0 - 26.0 mmol/l [facility] FIO2 30 [facility] HEMATOCRIT ABG 28(L) 38 - 51 % [facility] PO2 92 80 - 105 mmHg [facility] CALCIUM IONIZED 1.04(L) 1.12 - 1.32 mmol/l [facility] PCO2 POC 50(H) 35 - 45 mmHg [facility] BASE EXCESS 15(H) -2 - 3 mmol/l [facility] Arterial blood specimen (specimen) 04/17/2008 5:31 AM CDT 04/17/2008 6:05 AM CDT Riky Mejía MD POINT OF CARE TESTING COM F inal Result INTERFACE SYSTEM Refer to clinic/hospital department [facility]# [id number] [address] [place] [address] * (ABNORMAL) POC ISTAT EG 7+ (04/17/2008 4:22 AM CDT) PCO2 POC 52(H) 35 - 45 mmHg [facility] BASE EXCESS 19(H) -2 - 3 mmol/l [facility] SODIUM 137(L) 138 - 146 mEq/L [facility] PH 7.51(H) 7.35 - 7.45 Unit [facility] PO2 TEMP CORRECT 448(H) 80 - 105 mmHg [facility] O2 SATURATION 100(H) 95 - 98 % [facility] SPECIMEN TYPE Arterial [facility] Comment: Test Performed By [id number] Tidal volume: 500 PEEP: 08 Rate: 12 Pulse OX: 100 Hemoglobin calculated from Hematocrit result PCO2 TEMP CORRECT 52(H) 35 - 45 mmHg [facility] POTASSIUM 3.7 3.5 - 4.9 mEq/L [facility] HEMOGLOBIN POC 10.2 +/-3 g/dL 12.0 - 16.0 g/dL [facility] PH TEMP CORRECT 7.51(H) 7.35 - 7.45 Unit [facility] TCO2 (CALC) POC 44(H) 23 - 27 mmol/l [facility] HCO3 (CALC) POC 41.9(H) 22.0 - 26.0 mmol/l [facility] FIO2 30 [facility] HEMATOCRIT ABG 30(L) 38 - 51 % [facility] PO2 448(H) 80 - 105 mmHg [facility] CALCIUM IONIZED 1.01(L) 1.12 - 1.32 mmol/l [facility] Arterial blood specimen (specimen) 04/17/2008 4:22 AM CDT 04/17/2008 5:21 AM CDT us Riky Mejía MD POINT OF CARE TESTING COM F inal Result INTERFACE SYSTEM Refer to clinic/hospital department [facility] CLIA# [id number] [address] [place] [address] * (ABNORMAL) CBC WITH DIFFERENTIAL (04/17/2008 2:07 AM CDT) BASOPHILS ABSOLUTE 0.1 0.0 - 0.2 K/ul [facility] BASOPHILS 0.8 0.0 - 1.0 % [facility] HEMOGLOBIN 9.4(L) 12.0 - 16.0 g/dL [facility] RDW 16.7(H) 11.0 - 14.5 % [facility] MONOCYTE ABSOLUTE 1.1(H) 0.1 - 0.6 K/ul [facility] MONOCYTES 7.2 2.0 - 10.0 % [facility] WBC 14.8(H) 4.5 - 11.0 K/ul [facility] MCH 29.2 27.0 - 34.0 pg [facility] NEUTROPHIL ABSOLUTE 12.7(H) 2.0 - 8.0 K/ul [facility] NEUTROPHILS 86.0(H) 42.2 - 75.2 % [facility] HEMATOCRIT 28.9(L) 36.0 - 46.0 % [facility] EOSINOPHILS 1.2 0.0 - 7.0 % [facility] PLATELETS 287 140 - 440 K/ul [facility] PERIPHERAL BLOOD SMEAR REVIEW Automated Diff [facility] EOSINOPHIL ABSOLUTE 0.2 0.0 - 0.7 K/ul [facility] RBC 3.22(L) 4.20 - 5.40 Mil/ul [facility] LYMPHOCYTES 4.8(L) 24.0 - 44.0 % [facility] MCHC 32.5 30.0 - 35.0 g/dL [facility] LYMPHOCYTE ABSOLUTE 0.7(L) 1.2 - 4.0 K/ul [facility] MCV 89.8 84.0 - 103.0 Fl [facility] MPV 10.3 8.9 - 12.8 Fl [facility] Blood specimen (specimen) 04/17/2008 2:07 AM CDT 04/17/2008 2:12 AM CDT Riky Mejía MD HEMATOLOGY ORDERABLES Final Result INTERFACE SYSTEM Refer to clinic/hospital department [facility] CLIA# [id number] [address] [place] [address] * PHOSPHORUS (04/17/2008 2:07 AM CDT) PHOSPHORUS 3.0 2.5 - 4.6 mg/dL [facility] Blood specimen (specimen) 04/17/2008 2:07 AM CDT 04/17/2008 2:12 AM CDT Riky Mejía MD CHEMISTRY ORDERABLES Final Result Performing Organization Address City/State/[facility] Co de Phone Number INTERFACE SYSTEM Refer to clinic/hospital department [facility] CLIA# [id number] [facility] [place] [address] * (ABNORMAL) COMPREHENSIVE METABOLIC PANEL (04/17/2008 2:07 AM CDT) Pathologist [facility] GLOBULIN (CALC) 2.7 2.4 - 3.9 g/dL [facility] SODIUM 141 136 - 145 mEq/L [facility] BILIRUBIN TOTAL 2.6(H) 0.3 - 1.2 mg/dL [facility] TOTAL PROTEIN 4.9(L) 6.3 - 8.2 g/dL [facility] BUN 16 7 - 17 mg/dL [facility] AST 52(H) 8 - 33 U/L [facility] CO2 36(H) 22 - 32 mmol/l [facility] ALBUMIN/GLOBULIN RATIO 0.8(L) 1.0 - 2.3 [facility] ALBUMIN 2.2(L) 3.5 - 5.0 g/dL [facility] POTASSIUM 3.6 3.5 - 5.0 mEq/L [facility] ANION GAP 7(L) 9 - 20 mEq/L [facility] CALCIUM 7.9(L) 8.4 - 10.5 mg/dL [facility] CREATININE 0.5(L) 0.7 - 1.2 mg/dL [facility] ALT 37(H) 4 - 36 IU/L [facility] GLUCOSE 131(H) 70 - 110 mg/dL [facility] CHLORIDE 102 95 - 110 mEq/L [facility] OSMOLALITY, CALCULATED 292 275 - 295 mOsm/Kg [facility] ALKALINE PHOSPHATASE 122(H) 25 - 100 U/L [facility] Blood specimen (specimen) 04/17/2008 2:07 AM CDT 04/17/2008 2:12 AM CDT Riky Mejía MD CHEMISTRY ORDERABLES Final Result Performing Organization Address [facility] Phone Number INTERFACE SYSTEM Refer to clinic/hospital department [facility] CLIA# [id number] [address] [place] [address] * (ABNORMAL) TRIGLYCERIDE (04/17/2008 2:07 AM CDT) TRIGLYCERIDE 326(H) 0 - 150 mg/dL [facility] Comment: On 11/10/2007, [facility] changed the triglyceride reference range to 0-150 mg/dl. This is the recommendation of the National Cholesterol Education Program (NCEP-ATPIII). Blood specimen (specimen) 04/17/2008 2:07 AM CDT 04/17/2008 2:12 AM CDT Riky Mejía MD CHEMISTRY ORDERABLES Final Result Performing Organization Address [facility] Phone Number INTERFACE SYSTEM Refer to clinic/hospital department [facility] CLIA# [id number] [address] [place] [address] * (ABNORMAL) POC GLUCOSE (04/16/2008 6:56 PM CDT) GLUCOSE POC 151(H) 60 - 100 mg/dL [facility] Venous blood specimen (specimen) 04/16/2008 6:56 PM CDT 04/17/2008 12:06 PM CDT Riky Mejía MD POINT OF CARE TESTING Final Result Performing Organization Address [facility] Phone Number INTERFACE SYSTEM Refer to clinic/hospital department [facility] CLIA# [id number] [address] [place] [address] * POTASSIUM LEVEL (04/16/2008 4:43 PM CDT) POTASSIUM 3.7 3.5 - 5.0 mEq/L [facility] Comment: Specimen slightly hemolyzed. Slight icteric. Blood specimen (specimen) 04/16/2008 4:43 PM CDT 04/16/2008 4:43 PM CDT Riky Mejía MD CHEMISTRY ORDERABLES Final Result INTERFACE SYSTEM Refer to clinic/hospital department [facility] CLIA# [id number] [address] [place] [address] * (ABNORMAL) POC ISTAT EG 7+ (04/16/2008 12:11 PM CDT) POTASSIUM 3.5 3.5 - 4.9 mEq/L [facility] SPECIMEN TYPE Arterial [facility] Comment: Test Performed By [id number] Pulse OX: 97 Hemoglobin calculated from Hematocrit result PCO2 TEMP CORRECT 59(H) 35 - 45 mmHg [facility] HEMOGLOBIN POC 9.9 +/-3 g/dL 12.0 - 16.0 g/dL [facility] PH TEMP CORRECT 7.39 7.35 - 7.45 Unit [facility] HCO3 (CALC) POC 35.3(H) 22.0 - 26.0 mmol/l [facility] CALCIUM IONIZED 1.10(L) 1.12 - 1.32 mmol/l [facility] TCO2 (CALC) POC 37(H) 23 - 27 mmol/l [facility] FIO2 40 [facility] PO2 93 80 - 105 mmHg [facility] HEMATOCRIT ABG 29(L) 38 - 51 % [facility] PCO2 POC 59(H) 35 - 45 mmHg [facility] SODIUM 135(L) 138 - 146 mEq/L [facility] BASE EXCESS 10(H) -2 - 3 mmol/l [facility] PH 7.39 7.35 - 7.45 Unit [facility] O2 SATURATION 97 95 - 98 % [facility] PO2 TEMP CORRECT 93 80 - 105 mmHg [facility] Arterial blood specimen (specimen) 04/16/2008 12:11 PM CDT 04/16/2008 12:15 PM CDT Riky Mejía MD POINT OF CARE TESTING COM F inal Result Performing Organization Address City/[facility] de Phone Number INTERFACE SYSTEM Refer to clinic/hospital department [facility] CLIA# [id number] [address] [place] [address] * (ABNORMAL) POC GLUCOSE (04/16/2008 7:40 AM CDT) GLUCOSE POC 166(H) 60 - 100 mg/dL [facility] Venous blood specimen (specimen) 04/16/2008 7:40 AM CDT 04/17/2008 12:06 PM CDT Riky Mejía MD POINT OF CARE TESTING Final Result Performing Organization Address [facility] Phone Number INTERFACE SYSTEM Refer to clinic/hospital department [facility] CLIA# [id number] [address] [place] [address] * (ABNORMAL) POC ISTAT EG 7+ (04/16/2008 5:16 AM CDT) CALCIUM IONIZED 1.12 1.12 - 1.32 mmol/l [facility] PCO2 POC 46(H) 35 - 45 mmHg [facility] BASE EXCESS 10(H) -2 - 3 mmol/l [facility] SODIUM 133(L) 138 - 146 mEq/L [facility] PH 7.47(H) 7.35 - 7.45 Unit [facility] PO2 TEMP CORRECT 83 80 - 105 mmHg [facility] O2 SATURATION 97 95 - 98 % [facility] SPECIMEN TYPE Arterial [facility] Comment: Test Performed By [id number] Tidal volume: 500 PEEP: 06 Rate: 12 Pulse OX: 97 Hemoglobin calculated from Hematocrit result PCO2 TEMP CORRECT 46(H) 35 - 45 mmHg [facility] POTASSIUM 3.0(L) 3.5 - 4.9 mEq/L [facility] HEMOGLOBIN POC 9.2 +/-3 g/dL 12.0 - 16.0 g/dL [facility] PH TEMP CORRECT 7.47(H) 7.35 - 7.45 Unit [facility] TCO2 (CALC) POC 35(H) 23 - 27 mmol/l [facility] HCO3 (CALC) POC 33.4(H) 22.0 - 26.0 mmol/l [facility] FIO2 30 [facility] HEMATOCRIT ABG 27(L) 38 - 51 % [facility] PO2 83 80 - 105 mmHg [facility] Arterial blood specimen (specimen) 04/16/2008 5:16 AM CDT 04/16/2008 5:51 AM CDT us Riky Mejía MD POINT OF CARE TESTING COM F inal Result INTERFACE SYSTEM Refer to clinic/hospital department [facility] CLIA# [id number] [address] [place] [address] * (ABNORMAL) POC GLUCOSE (04/16/2008 5:12 AM CDT) GLUCOSE POC 151(H) 60 - 100 mg/dL [facility] Venous blood specimen (specimen) 04/16/2008 5:12 AM CDT 04/16/2008 6:51 AM CDT us Riky Mejía MD POINT OF CARE TESTING Final Result INTERFACE SYSTEM Refer to clinic/hospital department [facility] CLIA# [id number] [address] [place] [address] * XR CHEST PA OR AP (04/16/2008 [...] CDT) LYMPHOCYTES 5.4(L) 24.0 - 44.0 % [facility] MCHC 33.3 30.0 - 35.0 g/dL [facility] LYMPHOCYTE ABSOLUTE 1.1(L) 1.2 - 4.0 K/ul [facility] MCV 88.4 84.0 - 103.0 Fl [facility] MPV 10.1 8.9 - 12.8 Fl [facility] BASOPHILS ABSOLUTE 0.1 0.0 - 0.2 K/ul [facility] BASOPHILS 0.3 0.0 - 1.0 % [facility] HEMOGLOBIN 9.4(L) 12.0 - 16.0 g/dL [facility] RDW 16.2(H) 11.0 - 14.5 % [facility] MONOCYTE ABSOLUTE 0.7(H) 0.1 - 0.6 K/ul [facility] MONOCYTES 3.3 2.0 - 10.0 % [facility] WBC 19.6(H) 4.5 - 11.0 K/ul [facility] MCH 29.5 27.0 - 34.0 pg [facility] NEUTROPHIL ABSOLUTE 17.6(H) 2.0 - 8.0 K/ul [facility] NEUTROPHILS 89.9(H) 42.2 - 75.2 % [facility] HEMATOCRIT 28.2(L) 36.0 - 46.0 % [facility] EOSINOPHILS 1.1 0.0 - 7.0 % [facility] PLATELETS 292 140 - 440 K/ul [facility] PERIPHERAL BLOOD SMEAR REVIEW Automated Diff [facility] EOSINOPHIL ABSOLUTE 0.2 0.0 - 0.7 K/ul [facility] RBC 3.19(L) 4.20 - 5.40 Mil/ul [facility] Blood specimen (specimen) 04/16/2008 3:20 AM CDT 04/16/2008 3:26 AM CDT us Riky Mejía MD HEMATOLOGY ORDERABLES Final Result INTERFACE SYSTEM Refer to clinic/hospital department [facility] CLIA# [id number] [address] [place] [address] * (ABNORMAL) COMPREHENSIVE METABOLIC PANEL (04/16/2008 3:20 AM CDT) AST 58(H) 8 - 33 U/L [facility] CO2 32 22 - 32 mmol/l [facility] ALBUMIN/GLOBULIN RATIO 0.9(L) 1.0 - 2.3 [facility] ALBUMIN 2.2(L) 3.5 - 5.0 g/dL [facility] POTASSIUM 2.9(AA) 3.5 - 5.0 mEq/L [facility] Comment: Potentially critical/toxic K called by GS to JOCELYNE DILLARD, with verbal read back, at 04/16/08 04:21. ANION GAP 9 9 - 20 mEq/L [facility] CALCIUM 8.2(L) 8.4 - 10.5 mg/dL [facility] CREATININE 0.6(L) 0.7 - 1.2 mg/dL [facility] ALT 37(H) 4 - 36 IU/L [facility] GLUCOSE 148(H) 70 - 110 mg/dL [facility] CHLORIDE 98 95 - 110 mEq/L [facility] OSMOLALITY, CALCULATED 283 275 - 295 mOsm/Kg [facility] ALKALINE PHOSPHATASE 105(H) 25 - 100 U/L [facility] GLOBULIN (CALC) 2.5 2.4 - 3.9 g/dL [facility] SODIUM 136 136 - 145 mEq/L [facility] BILIRUBIN TOTAL 4.4(H) 0.3 - 1.2 mg/dL [facility] TOTAL PROTEIN 4.7(L) 6.3 - 8.2 g/dL [facility] BUN 17 7 - 17 mg/dL [facility] Blood specimen (specimen) 04/16/2008 3:20 AM CDT 04/16/2008 3:26 AM CDT us Riky Mejía MD CHEMISTRY ORDERABLES Final Result Performing Organization Address [facility] Phone Number INTERFACE SYSTEM Refer to clinic/hospital department [facility] CLIA# [id number] [address] [place] [id number] * (ABNORMAL) POC GLUCOSE (04/15/2008 6:36 PM CDT) GLUCOSE POC 110(H) 60 - 100 mg/dL [facility] Venous blood specimen (specimen) 04/15/2008 6:36 PM CDT 04/16/2008 6:51 AM CDT us Riky Mejía MD POINT OF CARE TESTING Final Result Performing Organization Address [facility] Phone Number INTERFACE SYSTEM Refer to clinic/hospital department [facility] CLIA# [id number] [address] [place] [id number] * (ABNORMAL) HEMOGLOBIN AND HEMATOCRIT (04/15/2008 4:00 PM CDT) HEMOGLOBIN 7.8(L) 12.0 - 16.0 g/dL [facility] HEMATOCRIT 24.1(L) 36.0 - 46.0 % [facility] Blood specimen (specimen) 04/15/2008 4:00 PM CDT 04/15/2008 4:00 PM CDT us Riky Mejía MD HEMATOLOGY ORDERABLES Final Result Performing Organization Address [facility] Phone Number INTERFACE SYSTEM Refer to clinic/hospital department [facility] CLIA# [id number] [address] [place] [id number] * (ABNORMAL) VANCOMYCIN LEVEL TROUGH (04/15/2008 9:53 AM CDT) VANCOMYCIN, TROUGH 18.3(H) 5.0 - 15.0 mcg/mL [facility] Blood specimen (specimen) 04/15/2008 9:53 AM CDT 04/15/2008 9:53 AM CDT Riky Mejía MD CHEMISTRY ORDERABLES Final Result Performing Organization Address [facility] Phone Number INTERFACE SYSTEM Refer to clinic/hospital department [facility] CLIA# [id number] [address] [place] [address] * (ABNORMAL) TRIGLYCERIDE (04/15/2008 9:53 AM CDT) TRIGLYCERIDE 435(H) 0 - 150 mg/dL [facility] Comment: On 11/10/2007, [facility] changed the triglyceride reference range to 0-150 mg/dl. This is the recommendation of the National Cholesterol Education Program (NCEP-ATPIII). Blood specimen (specimen) 04/15/2008 9:53 AM CDT 04/15/2008 9:53 AM CDT Riky Mejía MD CHEMISTRY ORDERABLES Final Result Performing Organization Address [facility] Phone Number INTERFACE SYSTEM Refer to clinic/hospital department [facility] CLIA# [id number] [address] [place] [address] * PROTIME-INR (04/15/2008 9:53 AM CDT) PROTIME 15.2 12.8 - 15.8 Secs [facility] Comment:As of 2007 not e change in normal range. INR 1.1 [facility] Comment: Expected Values for INR: DVT/PE Goal INR 2.5; range 2.0 - 3.0 Valve Replacement Tissue Goal INR 2.5; range 2.0 - 3.0 Mechanical Goal INR 3.0; range 2.5 - 3.5 POST-AZ Goal INR 2.5; range 2.0 - 3.0 or Goal 3.0; range 2.5 - 3.5 Atrial Fibrillation Goal INR 2.5; range 2.0 - 3.0 Ischemic Stroke Goal INR 2.5; range 2.0 - 3.0 For additional information see Guidelines for Anticoagulation available from the pharmacy [facility]. [phone] Blood specimen (specimen) 04/15/2008 9:53 AM CDT 04/15/2008 9:53 AM CDT Riky Mejía MD HEMATOLOGY ORDERABLES Final Result Performing Organization Address [facility] Phone Number INTERFACE SYSTEM Refer to clinic/hospital department [facility] CLIA# [id number] [address] [place] [address] * (ABNORMAL) TRANSFERRIN (04/15/2008 9:53 AM CDT) TRANSFERRIN 59.0(L) 204.0 - 376.0 mg/dL [facility] Comment: Specimen slightly hemolyzed Blood specimen (specimen) 04/15/2008 9:53 AM CDT 04/15/2008 9:53 AM CDT Riky Mejía MD CHEMISTRY ORDERABLES Final Result Performing Organization Address [facility] Phone Number INTERFACE SYSTEM Refer to clinic/hospital [facility] CLIA# [id number] [address] [place] [address] * (ABNORMAL) PREALBUMIN (04/15/2008 9:53 AM CDT) PREALBUMIN <5.0(L) 14.0 - 32.0 mg/dL [facility] Comment: Test Repeated; Results confirmed Blood specimen (specimen) 04/15/2008 9:53 AM CDT 04/15/2008 9:53 AM CDT Riky Mejía MD CHEMISTRY ORDERABLES Final Result Performing Organization Address [facility] Phone Number INTERFACE SYSTEM Refer to clinic/hospital [facility] CLIA# [id number] [address] [place] [address] * PHOSPHORUS (04/15/2008 9:53 AM CDT) PHOSPHORUS 3.9 2.5 - 4.6 mg/dL [facility] Blood specimen (specimen) 04/15/2008 9:53 AM CDT 04/15/2008 9:53 AM CDT us Riky Mejía MD CHEMISTRY ORDERABLES Edited Performing Organization Address [facility] Phone Number INTERFACE SYSTEM Refer to clinic/hospital department [facility] CLIA# [id number] [address] [place] [address] * (ABNORMAL) MAGNESIUM LEVEL (04/15/2008 9:53 AM CDT) MAGNESIUM 1.3(L) 1.7 - 2.4 mg/dL [facility] Blood specimen (specimen) 04/15/2008 9:53 AM CDT 04/15/2008 9:53 AM CDT us Riky Mejía MD CHEMISTRY ORDERABLES Edited Performing Organization Address [facility] de Phone Number INTERFACE SYSTEM Refer to clinic/hospital department [facility] CLIA# [id number] [address] [place] [address] * (ABNORMAL) POC ISTAT EG 7+ (04/15/2008 4:13 AM CDT) PH 7.49(H) 7.35 - 7.45 Unit [facility] PO2 TEMP CORRECT 68(L) 80 - 105 mmHg [facility] O2 SATURATION 94(L) 95 - 98 % [facility] SPECIMEN TYPE Arterial [facility] Comment: Test Performed By [id number] Tidal volume: 500 PEEP: 06 Rate: 12 Pulse OX: 98 Hemoglobin calculated from Hematocrit result PCO2 TEMP CORRECT 48(H) 35 - 45 mmHg [facility] POTASSIUM 3.4(L) 3.5 - 4.9 mEq/L [facility] HEMOGLOBIN POC 9.2 +/-3 g/dL 12.0 - 16.0 g/dL [facility] PH TEMP CORRECT 7.49(H) 7.35 - 7.45 Unit [facility] TCO2 (CALC) POC 38(H) 23 - 27 mmol/l [facility] HCO3 (CALC) POC 36.7(H) 22.0 - 26.0 mmol/l [facility] FIO2 30 [facility] HEMATOCRIT ABG 27(L) 38 - 51 % [facility] PO2 68(L) 80 - 105 mmHg [facility] CALCIUM IONIZED 1.06(L) 1.12 - 1.32 mmol/l [facility] PCO2 POC 48(H) 35 - 45 mmHg [facility] BASE EXCESS 13(H) -2 - 3 mmol/l [facility] SODIUM 133(L) 138 - 146 mEq/L [facility] Arterial blood specimen (specimen) 04/15/2008 4:13 AM CDT 04/15/2008 4:27 AM CDT Riky Mejía MD POINT OF CARE TESTING COM F inal Result INTERFACE SYSTEM Refer to clinic/hospital department [facility]# [id number] [address] [place] [address] * XR CHEST PA OR AP (04/15/2008 [...] By: April Chaparro M.D. Date Signed: 04/15/08 [facility] Procedure Note April Chaparro MD - 04/15/2008 Exam: Chest - Portable Date/Time of Exam: Apr 15, 2008 4:08:09 AM History: Postoperative. Findings: Comparison study 04/14/08. Life support lines stable in position.Decreased lung volumes with bibasilar plate atelectasis. Cardiac silhouette stable and within normallimits. Impression: No significant change. - Dictated By: April Chaparro M.D. Electronically Signed By: April Chaparro M.D. Date Signed: 04/15/08 [facility] Heriberto Carrera MD DIAGNOSTIC IMAGING ORDERABLES Fi nal Result * (ABNORMAL) COMPREHENSIVE METABOLIC PANEL (04/15/2008 3:17 AM CDT) CALCIUM 7.9(L) 8.4 - 10.5 mg/dL [facility] CREATININE 0.6(L) 0.7 - 1.2 mg/dL [facility] ALT 40(H) 4 - 36 IU/L [facility] GLUCOSE 106 70 - 110 mg/dL [facility] CHLORIDE 95 95 - 110 mEq/L [facility] OSMOLALITY, CALCULATED 285 275 - 295 mOsm/Kg [facility] ALKALINE PHOSPHATASE 102(H) 25 - 100 U/L [facility] GLOBULIN (CALC) 2.5 2.4 - 3.9 g/dL [facility] SODIUM 137 136 - 145 mEq/L [facility] BILIRUBIN TOTAL 4.3(H) 0.3 - 1.2 mg/dL [facility] Comment: slightly icteric TOTAL PROTEIN 4.5(L) 6.3 - 8.2 g/dL [facility] BUN 20(H) 7 - 17 mg/dL [facility] AST 73(H) 8 - 33 U/L [facility] CO2 36(H) 22 - 32 mmol/l [facility] ALBUMIN/GLOBULIN RATIO 0.8(L) 1.0 - 2.3 [facility] ALBUMIN 2.0(L) 3.5 - 5.0 g/dL [facility] POTASSIUM 3.7 3.5 - 5.0 mEq/L [facility] ANION GAP 10 9 - 20 mEq/L [facility] Blood specimen (specimen) 04/15/2008 3:17 AM CDT 04/15/2008 3:36 AM CDT us Petr Carrillo MD CHEMISTRY ORDERABLES Final Re sult INTERFACE SYSTEM Refer to clinic/hospital department [facility] CLIA# [id number] [address] [place] [address] * (ABNORMAL) CBC WITH DIFFERENTIAL (04/15/2008 3:17 AM CDT) NEUTROPHIL ABSOLUTE 15.2(H) 2.0 - 8.0 K/ul [facility] HEMATOCRIT 26.7(L) 36.0 - 46.0 % [facility] PLATELETS 428 140 - 440 K/ul [facility] EOSINOPHIL ABSOLUTE 0.2 0.0 - 0.7 K/ul [facility] EOSINOPHILS 0.8 0.0 - 7.0 % [facility] PERIPHERAL BLOOD SMEAR REVIEW Automated Diff [facility] RBC 3.02(L) 4.20 - 5.40 Mil/ul [facility] MCHC 32.2 30.0 - 35.0 g/dL [facility] LYMPHOCYTE ABSOLUTE 1.3 1.2 - 4.0 K/ul [facility] LYMPHOCYTES 7.4(L) 24.0 - 44.0 % [facility] MCV 88.4 84.0 - 103.0 Fl [facility] BASOPHILS 0.5 0.0 - 1.0 % [facility] MPV 10.1 8.9 - 12.8 Fl [facility] BASOPHILS ABSOLUTE 0.1 0.0 - 0.2 K/ul [facility] HEMOGLOBIN 8.6(L) 12.0 - 16.0 g/dL [facility] MONOCYTES 5.6 2.0 - 10.0 % [facility] RDW 16.7(H) 11.0 - 14.5 % [facility] MONOCYTE ABSOLUTE 1.0(H) 0.1 - 0.6 K/ul [facility] WBC 17.7(H) 4.5 - 11.0 K/ul [facility] NEUTROPHILS 85.7(H) 42.2 - 75.2 % [facility] MCH 28.5 27.0 - 34.0 pg [facility] Blood specimen (specimen) 04/15/2008 3:17 AM CDT 04/15/2008 3:40 AM CDT us Petr Carrillo MD HEMATOLOGY ORDERABLES Final R esult INTERFACE SYSTEM Refer to clinic/hospital department [facility]# [id number] [address] [place] [address] * XR CHEST PA OR AP (04/14/2008 [...] Ari Ly Jr., M.D. Date Signed: 04/14/08 [facility] [place] Procedure Note Ari Ly Jr. - 04/14/2008 [...] Ari Ly Jr., M.D. Date Signed: 04/14/08 [facility] [place] us Riky Mejía MD DIAGNOSTIC IMAGING ORDERABL ES Final Result * (ABNORMAL) POC ISTAT EG 7+ (04/14/2008 3:23 AM CDT) SODIUM 134(L) 138 - 146 mEq/L [facility] PH 7.60(AA) 7.35 - 7.45 Unit [facility] PO2 TEMP CORRECT 92 80 - 105 mmHg [facility] O2 SATURATION 98 95 - 98 % [facility] SPECIMEN TYPE Arterial [facility] Comment: Test Performed By [id number] Critical result performed at the point of care. Pulse OX: 98 Hemoglobin calculated from Hematocrit result PCO2 TEMP CORRECT 41 35 - 45 mmHg [facility] POTASSIUM 3.9 3.5 - 4.9 mEq/L [facility] HEMOGLOBIN POC 10.9 +/-3 g/dL 12.0 - 16.0 g/dL [facility] PH TEMP CORRECT 7.60(AA) 7.35 - 7.45 Unit [facility] TCO2 (CALC) POC 41(H) 23 - 27 mmol/l [facility] HCO3 (CALC) POC 39.9(H) 22.0 - 26.0 mmol/l [facility] FIO2 45 [facility] HEMATOCRIT ABG 32(L) 38 - 51 % [facility] PO2 92 80 - 105 mmHg [facility] CALCIUM IONIZED 1.03(L) 1.12 - 1.32 mmol/l [facility] PCO2 POC 41 35 - 45 mmHg [facility] BASE EXCESS 18(H) -2 - 3 mmol/l [facility] Arterial blood specimen (specimen) 04/14/2008 3:23 AM CDT 04/14/2008 5:44 AM CDT us Riky Mejía MD POINT OF CARE TESTING COM F inal Result INTERFACE SYSTEM Refer to clinic/hospital department [facility] CLIA# [id number] [address] [place] [address] * (ABNORMAL) DIFFERENTIAL, MANUAL (04/14/2008 1:37 AM CDT) NEUTROPHILS, SEG 57 36 - 66 % [facility] METAMYELOCYTE 1 0 - 1 % [facility] POIKILOCYTES 1+(A) None Seen [facility] MONOCYTE 5 4 - 10 % [facility] RBC MORPHOLOGY Abnormal(A ) Normal [facility] BANDS 27(H) 0 - 6 % [facility] POLYCHROMASIA Present(A) None Seen [facility] MYELOCYTES 1 <=1 % [facility] EOSINOPHILS 1 0 - 3 % [facility] ANISOCYTOSIS 1+(A) None Seen [facility] LYMPHOCYTES 8(L) 24 - 44 % [facility] PLATELET EST. Normal Normal [facility] Comment: OCC PLATELET CLUMPS NOTED ON REVIEW OF SMEAR. Blood specimen (specimen) 04/14/2008 1:37 AM CDT 04/14/2008 1:40 AM CDT Narrative INTERFACE SYSTEM - 04/14/2008 2:01 AM CDT Differential ordered by policy. Riky Mejía MD HEMATOLOGY ORDERABLES COM F inal Result INTERFACE SYSTEM Refer to clinic/hospital department [facility] CLIA# [id number] [address] [place] [address] * (ABNORMAL) BASIC METABOLIC PANEL (04/14/2008 1:37 AM CDT) CALCIUM 8.1(L) 8.4 - 10.5 mg/dL [facility] GLUCOSE 108 70 - 110 mg/dL [facility] CHLORIDE 95 95 - 110 mEq/L [facility] ANION GAP 8(L) 9 - 20 mEq/L [facility] SODIUM 137 136 - 145 mEq/L [facility] BUN 26(H) 7 - 17 mg/dL [facility] CO2 38(H) 22 - 32 mmol/l [facility] POTASSIUM 4.1 3.5 - 5.0 mEq/L [facility] OSMOLALITY, CALCULATED 288 275 - 295 mOsm/Kg [facility] CREATININE 0.8 0.7 - 1.2 mg/dL [facility] Blood specimen (specimen) 04/14/2008 1:37 AM CDT 04/14/2008 1:40 AM CDT us Riky Mejía MD CHEMISTRY ORDERABLES Final Result Performing Organization Address [facility] Phone Number INTERFACE SYSTEM Refer to clinic/hospital department [facility] CLIA# [id number] [address] [place] [address] * (ABNORMAL) CBC WITH DIFFERENTIAL (04/14/2008 1:37 AM CDT) HEMATOCRIT 33.4(L) 36.0 - 46.0 % [facility] PLATELETS 429 140 - 440 K/ul [facility] RBC 3.77(L) 4.20 - 5.40 Mil/ul [facility] MCHC 33.2 30.0 - 35.0 g/dL [facility] MPV 10.1 8.9 - 12.8 Fl [facility] MCV 88.6 84.0 - 103.0 Fl [facility] HEMOGLOBIN 11.1(L) 12.0 - 16.0 g/dL [facility] RDW 16.4(H) 11.0 - 14.5 % [facility] WBC 16.6(H) 4.5 - 11.0 K/ul [facility] MCH 29.4 27.0 - 34.0 pg [facility] Blood specimen (specimen) 04/14/2008 1:37 AM CDT 04/14/2008 1:40 AM CDT us Riky Mejía MD HEMATOLOGY ORDERABLES Edite d Performing Organization Address [facility] de Phone Number INTERFACE SYSTEM Refer to clinic/hospital department [facility] CLIA# [id number] [address] [place] [address] * LACTIC ACID (04/13/2008 9:12 PM CDT) LACTIC ACID 1.4 0.5 - 2.2 mEq/L [facility] Blood specimen (specimen) 04/13/2008 9:12 PM CDT 04/13/2008 9:18 PM CDT us Riky Mejía MD CHEMISTRY ORDERABLES Final Result INTERFACE SYSTEM Refer to clinic/hospital department [facility] CLIA# [id number] [facility] [place] [address] * (ABNORMAL) POC ISTAT EG 7+ (04/13/2008 8:41 PM CDT) Pathologist [facility] POTASSIUM 3.8 3.5 - 4.9 mEq/L [facility] PH TEMP CORRECT 7.51(H) 7.35 - 7.45 Unit [facility] HCO3 (CALC) POC 43.9(H) 22.0 - 26.0 mmol/l [facility] TCO2 (CALC) POC 46(H) 23 - 27 mmol/l [facility] FIO2 55 [facility] PO2 129(H) 80 - 105 mmHg [facility] CALCIUM IONIZED 1.05(L) 1.12 - 1.32 mmol/l [facility] HEMATOCRIT ABG 36(L) 38 - 51 % [facility] PCO2 POC 56(H) 35 - 45 mmHg [facility] SODIUM 135(L) 138 - 146 mEq/L [facility] BASE EXCESS 21(H) -2 - 3 mmol/l [facility] PH 7.51(H) 7.35 - 7.45 Unit [facility] O2 SATURATION 99(H) 95 - 98 % [facility] PO2 TEMP CORRECT 129(H) 80 - 105 mmHg [facility] SPECIMEN TYPE Arterial [facility] Comment: Test Performed By [id number] PEEP: 10 Rate: 12 Pulse OX: 100 Hemoglobin calculated from Hematocrit result PCO2 TEMP CORRECT 56(H) 35 - 45 mmHg [facility] HEMOGLOBIN POC 12.2 +/-3 g/dL 12.0 - 16.0 g/dL [facility] Arterial blood specimen (specimen) 04/13/2008 8:41 PM CDT 04/13/2008 8:44 PM CDT Riky Mejía MD POINT OF CARE TESTING COM F inal Result Performing Organization Address [facility] de Phone Number INTERFACE SYSTEM Refer to clinic/hospital department [facility] CLIA# [id number] [address] [place] [address] * (ABNORMAL) POC GLUCOSE (04/13/2008 8:33 PM CDT) GLUCOSE POC 115(H) 60 - 100 mg/dL [facility] Venous blood specimen (specimen) 04/13/2008 8:33 PM CDT 04/14/2008 5:56 AM CDT Riky Mejía MD POINT OF CARE TESTING Final Result Performing Organization Address [facility] de Phone Number INTERFACE SYSTEM Refer to clinic/hospital department [facility] CLIA# [id number] [address] [place] [address] * (ABNORMAL) BASIC METABOLIC PANEL (04/13/2008 7:58 PM CDT) GLUCOSE 118(H) 70 - 110 mg/dL [facility] CHLORIDE 94(L) 95 - 110 mEq/L [facility] ANION GAP <9 9 - 20 mEq/L [facility] SODIUM 139 136 - 145 mEq/L [facility] BUN 17 7 - 17 mg/dL [facility] CO2 >40(H) 22 - 32 mmol/l [facility] POTASSIUM 3.9 3.5 - 5.0 mEq/L [facility] OSMOLALITY, CALCULATED 288 275 - 295 mOsm/Kg [facility] CREATININE 0.5(L) 0.7 - 1.2 mg/dL [facility] CALCIUM 8.4 8.4 - 10.5 mg/dL [facility] Blood specimen (specimen) 04/13/2008 7:58 PM CDT 04/13/2008 8:01 PM CDT Riky Mejía MD CHEMISTRY ORDERABLES Final Result INTERFACE SYSTEM Refer to clinic/hospital department [facility] CLIA# [id number] [address] [place] [address] * (ABNORMAL) CBC WITH DIFFERENTIAL (04/13/2008 7:58 PM CDT) MCV 91.0 84.0 - 103.0 Fl [facility] MPV 10.3 8.9 - 12.8 Fl [facility] BASOPHILS ABSOLUTE 0.1 0.0 - 0.2 K/ul [facility] BASOPHILS 0.4 0.0 - 1.0 % [facility] HEMOGLOBIN 11.6(L) 12.0 - 16.0 g/dL [facility] RDW 16.6(H) 11.0 - 14.5 % [facility] MONOCYTE ABSOLUTE 0.7(H) 0.1 - 0.6 K/ul [facility] MONOCYTES 4.2 2.0 - 10.0 % [facility] WBC 16.1(H) 4.5 - 11.0 K/ul [facility] MCH 29.7 27.0 - 34.0 pg [facility] NEUTROPHIL ABSOLUTE 14.1(H) 2.0 - 8.0 K/ul [facility] NEUTROPHILS 87.4(H) 42.2 - 75.2 % [facility] HEMATOCRIT 35.6(L) 36.0 - 46.0 % [facility] EOSINOPHILS 0.9 0.0 - 7.0 % [facility] PLATELETS 430 140 - 440 K/ul [facility] EOSINOPHIL ABSOLUTE 0.1 0.0 - 0.7 K/ul [facility] RBC 3.91(L) 4.20 - 5.40 Mil/ul [facility] LYMPHOCYTES 7.1(L) 24.0 - 44.0 % [facility] MCHC 32.6 30.0 - 35.0 g/dL [facility] LYMPHOCYTE ABSOLUTE 1.1(L) 1.2 - 4.0 K/ul [facility] Blood specimen (specimen) 04/13/2008 7:58 PM CDT 04/13/2008 8:01 PM CDT us Riky Mejía MD HEMATOLOGY ORDERABLES Final Result Performing Organization Address City/State/[facility] Phone Number INTERFACE SYSTEM Refer to clinic/hospital department [facility]# [id number] [address] [place] [address] * XR CHEST PA OR AP (04/13/2008 [...] radiopaque tubes and lines that overlie the [id number]. There is vascular congestion, and there is [...] radiopaque tubes and lines that overlie the [id number]. There is vascular congestion,and there is likely a right lower lobe infiltrate that obscures the right diaphragm. - Dictated By: Riky Jarvis M.D. Electronically Signed By: Riky Jarvis M.D. Date Signed: 04/13/08 Riky Mejía MD DIAGNOSTIC IMAGING ORDERABL ES Final Result * (ABNORMAL) POC ISTAT EG 7+ (04/13/2008 6:02 PM CDT) TEMPERATURE 37.9 DegC [facility] PO2 138(H) 80 - 105 mmHg [facility] CALCIUM IONIZED 1.06(L) 1.12 - 1.32 mmol/l [facility] HEMATOCRIT ABG 29(L) 38 - 51 % [facility] SPECIMEN TYPE Arterial [facility] Comment: Test Performed By [id number] Critical result performed at the point of care. Sample not collected by [facility] Hemoglobin calculated from Hematocrit result PCO2 POC 39 35 - 45 mmHg [facility] SODIUM 134(L) 138 - 146 mEq/L [facility] BASE EXCESS 27(H) -2 - 3 mmol/l [facility] PH 7.69(AA) 7.35 - 7.45 Unit [facility] O2 SATURATION 100(H) 95 - 98 % [facility] PO2 TEMP CORRECT 144(H) 80 - 105 mmHg [facility] FIO2 100 [facility] HEMOGLOBIN POC 9.9 +/-3 g/dL 12.0 - 16.0 g/dL [facility] PCO2 TEMP CORRECT 41 35 - 45 mmHg [facility] POTASSIUM 3.3(L) 3.5 - 4.9 mEq/L [facility] PH TEMP CORRECT 7.67(AA) 7.35 - 7.45 Unit [facility] HCO3 (CALC) POC 47.0(H) 22.0 - 26.0 mmol/l [facility] TCO2 (CALC) POC 48(H) 23 - 27 mmol/l [facility] Arterial blood specimen (specimen) 04/13/2008 6:02 PM CDT 04/13/2008 6:19 PM CDT Riky Mejía MD POINT OF CARE TESTING COM F inal Result Performing Organization Address [facility] de Phone Number INTERFACE SYSTEM Refer to clinic/hospital department [facility] CLIA# [id number] [address] [place] [address] * LACTIC ACID (04/13/2008 5:36 PM CDT) [facility] LACTIC ACID 1.5 0.5 - 2.2 mEq/L [facility] Blood specimen (specimen) 04/13/2008 5:36 PM CDT 04/13/2008 5:36 PM CDT Riky Mejía MD CHEMISTRY ORDERABLES Final Result Performing Organization Address [facility] Phone Number INTERFACE SYSTEM Refer to clinic/hospital department [facility] CLIA# [id number] [facility] [place] [address] * TYPE AND CROSSMATCH (04/13/2008 5:34 PM CDT) [facility] BLOOD BANK PRODUCT INTERFACE SYSTEM Blood specimen (specimen) 04/13/2008 5:34 PM CDT 04/13/2008 5:34 PM CDT Riky Mejía MD BLOOD BANK ORDERABLES Final Result Performing Organization Address [facility] de Phone Number INTERFACE SYSTEM Refer to clinic/hospital department * ANTIBODY SCREEN (04/13/2008 5:34 PM CDT) Pathologist [facility] ANTIBODY SCREEN Negative [facility] Blood specimen (specimen) 04/13/2008 5:34 PM CDT 04/13/2008 5:34 PM CDT Riky Mejía MD BLOOD BANK ORDERABLES Edite d Performing Organization Address [facility] de Phone Number INTERFACE SYSTEM Refer to clinic/hospital department [facility] CLIA# [id number] [address] [place] [address] * ABORH TYPING (04/13/2008 5:34 PM CDT) Pathologist [facility] ABO/RH TYPE O Positive [facility] Blood specimen (specimen) 04/13/2008 5:34 PM CDT 04/13/2008 5:34 PM CDT us Riky Mejía MD BLOOD BANK ORDERABLES Final Result Performing Organization Address [facility] Phone Number INTERFACE SYSTEM Refer to clinic/hospital department [facility] CLIA# [id number] [address] [place] [address] * (ABNORMAL) BASIC METABOLIC PANEL (04/13/2008 5:29 PM CDT) CREATININE 0.6(L) 0.7 - 1.2 mg/dL [facility] CALCIUM 8.4 8.4 - 10.5 mg/dL [facility] GLUCOSE 118(H) 70 - 110 mg/dL [facility] CHLORIDE 91(L) 95 - 110 mEq/L [facility] SODIUM 141 136 - 145 mEq/L [facility] ANION GAP <14 9 - 20 mEq/L [facility] BUN 16 7 - 17 mg/dL [facility] CO2 >40(H) 22 - 32 mmol/l [facility] OSMOLALITY, CALCULATED 291 275 - 295 mOsm/Kg [facility] POTASSIUM 3.7 3.5 - 5.0 mEq/L [facility] Blood specimen (specimen) 04/13/2008 5:29 PM CDT 04/13/2008 5:30 PM CDT Narrative INTERFACE SYSTEM - 04/13/2008 6:20 PM CDT OR 9 us Riky Mejía MD CHEMISTRY ORDERABLES Final Result INTERFACE SYSTEM Refer to clinic/hospital department [facility] CLIA# [id number] [address] [place] [address] * PT AND APTT (04/13/2008 5:29 PM CDT) INR 1.1 [facility] Comment: Expected Values for INR: DVT/PE Goal INR 2.5; range 2.0 - 3.0 Valve Replacement Tissue Goal INR 2.5; range 2.0 - 3.0 Mechanical Goal INR 3.0; range 2.5 - 3.5 POST-AZ Goal INR 2.5; range 2.0 - 3.0 or Goal 3.0; range 2.5 - 3.5 Atrial Fibrillation Goal INR 2.5; range 2.0 - 3.0 Ischemic Stroke Goal INR 2.5; range 2.0 - 3.0 For additional information see Guidelines for Anticoagulation available from the pharmacy [facility]. [phone] PTT 33.1 22.5 - 36.5 Secs [facility] Comment: Therapeutic Range: Hi-level PE/DVT heparin protocol 80.1 -95.0 sec Lo-level PE/DVT heparin protocol 67.1 - 80.0 sec Cardiac Heparin Protocol 67.1 - 85.0 sec Neuro Heparin Protocol 67.1 - 80.0 sec As of 09/25/2007 note change in APTT Normal Range. PROTIME 15.3 12.8 - 15.8 Secs [facility] Comment:As of 2007 not e change in normal range. Blood specimen (specimen) 04/13/2008 5:29 PM CDT 04/13/2008 5:30 PM CDT Narrative INTERFACE SYSTEM - 04/13/2008 5:48 PM CDT OR 9 us Riky Mejía MD HEMATOLOGY ORDERABLES Edite d INTERFACE SYSTEM Refer to clinic/hospital department [facility] CLIA# [id number] [facility] [place] [address] * (ABNORMAL) CBC WITH DIFFERENTIAL (04/13/2008 5:29 PM CDT) MCV 90.1 84.0 - 103.0 Fl [facility] BASOPHILS 0.3 0.0 - 1.0 % [facility] MPV 10.2 8.9 - 12.8 Fl [facility] BASOPHILS ABSOLUTE 0.0 0.0 - 0.2 K/ul [facility] HEMOGLOBIN 9.4(L) 12.0 - 16.0 g/dL [facility] MONOCYTES 4.3 2.0 - 10.0 % [facility] RDW 17.1(H) 11.0 - 14.5 % [facility] MONOCYTE ABSOLUTE 0.5 0.1 - 0.6 K/ul [facility] WBC 11.8(H) 4.5 - 11.0 K/ul [facility] NEUTROPHILS 81.9(H) 42.2 - 75.2 % [facility] MCH 29.0 27.0 - 34.0 pg [facility] NEUTROPHIL ABSOLUTE 9.7(H) 2.0 - 8.0 K/ul [facility] HEMATOCRIT 29.2(L) 36.0 - 46.0 % [facility] PLATELETS 414 140 - 440 K/ul [facility] EOSINOPHIL ABSOLUTE 0.2 0.0 - 0.7 K/ul [facility] EOSINOPHILS 1.4 0.0 - 7.0 % [facility] RBC 3.24(L) 4.20 - 5.40 Mil/ul [facility] MCHC 32.2 30.0 - 35.0 g/dL [facility] LYMPHOCYTE ABSOLUTE 1.4 1.2 - 4.0 K/ul [facility] LYMPHOCYTES 12.1(L) 24.0 - 44.0 % [facility] Blood specimen (specimen) 04/13/2008 5:29 PM CDT 04/13/2008 5:29 PM CDT Narrative INTERFACE SYSTEM - 04/13/2008 5:35 PM CDT OR 9 us Riky Mejía MD HEMATOLOGY ORDERABLES Final Result INTERFACE SYSTEM Refer to clinic/hospital department [facility] CLIA# [id number] [address] [place] [address] * (ABNORMAL) POC ISTAT EG 7+ (04/13/2008 5:26 PM CDT) PH 7.68(AA) 7.35 - 7.45 Unit [facility] O2 SATURATION 100(H) 95 - 98 % [facility] PO2 TEMP CORRECT 174(H) 80 - 105 mmHg [facility] FIO2 100 [facility] HEMOGLOBIN POC 9.5 +/-3 g/dL 12.0 - 16.0 g/dL [facility] PCO2 TEMP CORRECT 47(H) 35 - 45 mmHg [facility] POTASSIUM 3.5 3.5 - 4.9 mEq/L [facility] PH TEMP CORRECT 7.67(AA) 7.35 - 7.45 Unit [facility] HCO3 (CALC) POC 53.2(H) 22.0 - 26.0 mmol/l [facility] TCO2 (CALC) POC >50(H) 23 - 27 mmol/l [facility] TEMPERATURE 37.8 DegC [facility] PO2 170(H) 80 - 105 mmHg [facility] CALCIUM IONIZED 0.95(L) 1.12 - 1.32 mmol/l [facility] HEMATOCRIT ABG 28(L) 38 - 51 % [facility] SPECIMEN TYPE Arterial [facility] Comment: Test Performed By [id number] Critical result performed at the point of care. Sample not collected by [facility] Hemoglobin calculated from Hematocrit result PCO2 POC 45 35 - 45 mmHg [facility] SODIUM 135(L) 138 - 146 mEq/L [facility] BASE EXCESS >30(H) -2 - 3 mmol/l [facility] Arterial blood specimen (specimen) 04/13/2008 5:26 PM CDT 04/13/2008 5:34 PM CDT Riky Mejía MD POINT OF CARE TESTING COM F inal Result Performing Organization Address [facility] Co de Phone Number INTERFACE SYSTEM Refer to clinic/hospital department [facility] CLIA# [id number] [address] [place] [id number] * MRSA CULTURE (04/13/2008 4:30 PM CDT) FINAL REPORT Culture screen for MRSA negative INTERFACE SYSTEM 04/13/2008 4:30 PM CDT 04/13/2008 6:57 PM CDT Riky Mejía MD MICROBIOLOGY - GENERAL ORDE RABLES Final Result Performing Organization Address [facility] de Phone Number INTERFACE SYSTEM Refer to clinic/hospital department documented in this encounter Visit Diagnoses Not on filedocumented in this encounter Additional Health Concerns Infection Onset Date Last Indicated Resolved Time MRSA Comment:Kapil 10/26/15 10/27/2015 10/27/2015 documented as of this encounter Care Teams Health Analyst Relationship Specialty Start Date End Date Jose Bowers MD [address] [place] [id number] PCP - General 12/31/05 documented as of this encounter
--- OUTSIDE RECORDS SUMMARY | 2025-05-12 12:19 | XMS_ITS | Encounter Summary ---
Author Organization [facility] Address [address] [place] [address] Care Team Providers Care Poll Watcher Name Role Phone Jose Bowers MD Primary Care Provider Unavailab le Encounter Details Date Type Department Care Team (Latest Contact Info) Description 07/24/[address] [facility] [address] 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
--- OUTSIDE RECORDS SUMMARY | 2025-05-12 12:19 | XMS_ITS | Encounter Summary ---
Author Organization [facility] Address [address] [place] [address] Care Team Providers Care Volcanology Teacher Name Role Phone Jose Bowers MD Primary Care Provider Unavail le Encounter Details Date Type Department Care Team (Late st Contact Info) Description 12/31/2005 Outpatient Historical [facility] Jose Bowers MD [address] [place] [address] Paraplegia (CMS/HCC) (Primary Dx) Social History Tobacco Use Types Packs/Day Years Used Date Smoking Tobacco: Never Assessed Comments Unknown Sex and Gender Information Value Date Recorded Sex Assigned at Not on file 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 The new reference ranges are Males 38-174 Females 26-140 The old referance ranges were Males 0-155 Females 0-133 12/31/2005 12:4 8 PM CDT Jose Bowers MD CHEMISTRY ORDERABLES Final Resul t Performing Organization Address [facility] Phone Number INTERFACE SYSTEM Refer to clinic/hospital department * C-REACTIVE PROTEIN (12/31/2005 12:48 PM CDT) CRP 0.85 0.00 - 1.00 mg/dL INTERFACE SYSTEM 12/31/2005 12:4 8 PM CDT Jose Bowers MD CHEMISTRY ORDERABLES Final Resul t Performing Organization Address [facility] Phone Number INTERFACE SYSTEM Refer to clinic/hospital department * SEDIMENTATION RATE (12/31/2005 12:48 PM CDT) ESR (SEDIMENTATION RATE) 18 0 - 22 mm/hr INTERFACE SYSTEM 12/31/2005 12:4 8 PM CDT Jose Bowers MD HEMATOLOGY ORDERABLES Final Resu lt Performing Organization Address [facility] Phone Number INTERFACE SYSTEM [...] in this encounter Visit Diagnoses Diagnosis Paraplegia (CMS/[facility])- Primary Paraplegia documented in this encounter Additional Health Concerns Infection Onset Date Last Indicated Resolved Time MRSA Comment:Kapil 10/26/15 10/27/2015 10/27/2015 documented as of this encounter Care Teams Volcanology Teacher Relationship Specialty Start Date End Date Jose Bowers MD [address] [place] [address] PCP - General 12/31/05 documented as of this encounter
--- OUTSIDE RECORDS SUMMARY | 2025-05-12 12:19 | XMS_ITS | Encounter Summary ---
Author Organization [facility] Address [address] [place] [address] Care Team Providers Care Family Day Care Provider Name Role Phone Jose Bowers MD Primary Care Provider Unavailab le Encounter Details Date Type Department Care Team (Late st Contact Info) Description 01/30/2007 Outpatient Historical [facility] [place] [address] [place] [phone] Jose Bowers MD [address] [place] [address] Paraplegia (CMS/HCC) (Primary Dx) Social History Tobacco Use Types Packs/Day Years Used Date Smoking Tobacco: Never Assessed Comments Unknown Sex and Gender Information Value Date Recorded Sex Assigned at Not on file 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
--- OUTSIDE RECORDS SUMMARY | 2025-05-12 12:19 | XMS_ITS | Clinical Summary ---
Author Organization [facility] Address 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
--- OUTSIDE RECORDS SUMMARY | 2025-05-12 12:19 | XMS_ITS | Encounter Summary ---
Author Organization [facility] Address [address] [place] [address] Care Team Providers Care Reproduction Machine Loader Name Role Phone Jose Bowers MD Primary Care Provider Unavailab le Encounter Details Date Type Department Care Team (Late st Contact Info) Description 02/14/2006 Outpatient Historical [facility]- [place] [address] [place] [phone] Jose Bowers MD [address] [place] [address] Paraplegia (CMS/HCC) (Primary Dx) Social History Tobacco Use Types Packs/Day Years Used Date Smoking Tobacco: Never Assessed Comments Unknown Sex and Gender Information Value Date Recorded Sex Assigned at Not on file 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
--- OUTSIDE RECORDS SUMMARY | 2025-05-12 12:19 | XMS_ITS | Encounter Summary ---
Author Organization [facility] Address [address] [place] [address] Care Team Providers Care License Distributor Name Role Phone Jose Bowers MD Primary Care Provider Unavailab le Encounter Details Date Type Department Care Team (Late st Contact Info) Description 07/04/2004 Outpatient Historical [facility] Calvin Odonnell MD [address] [place] [id number] Social History Tobacco Use Types Packs/Day Years Used Date Smoking Tobacco: Never Assessed Comments Unknown Sex and Gender Information Value Date Recorded Sex Assigned at Not on file 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
--- OUTSIDE RECORDS SUMMARY | 2025-05-12 12:19 | XMS_ITS | Encounter Summary ---
Author Organization [facility] Address [address] [place] [address] Care Team Providers Care Clinical Implementation Specialist Name Role Phone Jose Bowers MD Primary Care Provider Unavailab le Encounter Details Date Type Department Care Team (Late st Contact Info) Description 10/01/2005 Outpatient Historical [facility] Physical Med and Re[facility]- [place] [address] [place] [phone] Jose Bowers MD [address] [place] [address] Paraplegia (CMS/HCC) (Primary Dx); Neurogenic Bladder, NOS Social History Tobacco Use Types Packs/Day Years Used Date Smoking Tobacco: Never Assessed Comments Unknown Sex and Gender Information Value Date Recorded Sex Assigned at Not on file 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 Gender Identity Not on file Sexual Orientation Not on file documented as of this encounter Plan of Treatment Not on file documented as of this encounter Visit Diagnoses Diagnosis Paraplegia (CMS/HCC)- Primary Paraplegia Neurogenic bladder, NOS documented in this encounter Additional Health Concerns Infection Onset Date Last Indicated Resolved Time MRSA Comment:Kapil 10/26/15 10/27/2015 10/27/2015 documented as of this encounter Care Teams Clinical Implementation Specialist Relationship Specialty Start Date End Date Jose Bowers MD [address] [place] [address] PCP - General 12/31/05 documented as of this encounter
--- OUTSIDE RECORDS SUMMARY | 2025-05-12 12:19 | XMS_ITS | Encounter Summary ---
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 Gender Identity Not on file Sexual [...] GLUCOSE POC 109(H) 60 - 100 mg/dL [facility] Venous blood specimen (specimen) 04/08/2008 4:10 PM CDT 04/09/2008 7:42 AM CDT Riky Mejía MD POINT OF CARE TESTING Final Result Performing Organization Address City/State/[facility] Co de Phone Number INTERFACE SYSTEM Refer to clinic/hospital department [facility] CLIA# [id number] [facility] [place] [address] * (ABNORMAL) POC GLUCOSE (04/08/2008 11:00 AM CDT) GLUCOSE POC 122(H) 60 - 100 mg/dL [facility] Venous blood specimen (specimen) 04/08/2008 11:00 AM CDT 04/09/2008 7:42 AM CDT us Riky Mejía MD POINT OF CARE TESTING Final Result Performing Organization Address [facility] de Phone Number INTERFACE SYSTEM Refer to clinic/hospital department [facility] CLIA# [id number] [address] [place] [address] * (ABNORMAL) POC GLUCOSE (04/08/2008 5:12 AM CDT) GLUCOSE POC 124(H) 60 - 100 mg/dL [facility] Venous blood specimen (specimen) 04/08/2008 5:12 AM CDT 04/08/2008 7:16 AM CDT Riky Mejía MD POINT OF CARE TESTING Final Result Performing Organization Address [facility] de Phone Number INTERFACE SYSTEM Refer to clinic/hospital department [facility] CLIA# [id number] [address] [place] [address] * (ABNORMAL) BASIC METABOLIC PANEL (04/08/2008 4:30 AM CDT) POTASSIUM 4.2 3.5 - 5.0 mEq/L [facility] OSMOLALITY, CALCULATED 284 275 - 295 mOsm/Kg [facility] CREATININE 0.5(L) 0.7 - 1.2 mg/dL [facility] CALCIUM 8.4 8.4 - 10.5 mg/dL [facility] GLUCOSE 141(H) 70 - 110 mg/dL [facility] CHLORIDE 102 95 - 110 mEq/L [facility] ANION GAP 9 9 - 20 mEq/L [facility] SODIUM 137 136 - 145 mEq/L [facility] BUN 11 7 - 17 mg/dL [facility] CO2 30 22 - 32 mmol/l [facility] Blood specimen (specimen) 04/08/2008 4:30 AM CDT 04/08/2008 4:30 AM CDT Riky Mejía MD CHEMISTRY ORDERABLES Final Result INTERFACE SYSTEM Refer to clinic/hospital department [facility] CLIA# [id number] [facility] [place] [place] [address] * (ABNORMAL) CBC WITH DIFFERENTIAL (04/08/2008 4:30 AM CDT) MCV 90.8 84.0 - 103.0 Fl [facility] BASOPHILS 0.2 0.0 - 1.0 % [facility] MPV 10.7 8.9 - 12.8 Fl [facility] BASOPHILS ABSOLUTE 0.0 0.0 - 0.2 K/ul [facility] HEMOGLOBIN 10.6(L) 12.0 - 16.0 g/dL [facility] MONOCYTES 8.0 2.0 - 10.0 % [facility] RDW 16.8(H) 11.0 - 14.5 % [facility] MONOCYTE ABSOLUTE 1.0(H) 0.1 - 0.6 K/ul [facility] WBC 12.7(H) 4.5 - 11.0 K/ul [facility] NEUTROPHILS 86.4(H) 42.2 - 75.2 % [facility] MCH 29.4 27.0 - 34.0 pg [facility] NEUTROPHIL ABSOLUTE 10.9(H) 2.0 - 8.0 K/ul [facility] HEMATOCRIT 32.7(L) 36.0 - 46.0 % [facility] PLATELETS 149 140 - 440 K/ul [facility] EOSINOPHIL ABSOLUTE 0.1 0.0 - 0.7 K/ul [facility] EOSINOPHILS 0.7 0.0 - 7.0 % [facility] RBC 3.60(L) 4.20 - 5.40 Mil/ul [facility] MCHC 32.4 30.0 - 35.0 g/dL [facility] LYMPHOCYTE ABSOLUTE 0.6(L) 1.2 - 4.0 K/ul [facility] LYMPHOCYTES 4.7(L) 24.0 - 44.0 % [facility] Blood specimen (specimen) 04/08/2008 4:30 AM CDT 04/08/2008 4:30 AM CDT us Riky Mejía MD HEMATOLOGY ORDERABLES Final Result Performing Organization Address City/[facility] de Phone Number INTERFACE SYSTEM Refer to clinic/hospital department [facility] CLIA# [id number] [facility] [place] [place] [address] * BLOOD CULTURE (04/07/2008 9:56 PM CDT) FINAL REPORT No growth INTERFA CE SYSTEM Blood specimen (specimen) 04/07/2008 9:56 PM CDT 04/07/2008 9:56 PM CDT us Riky Mejía MD MICROBIOLOGY - GENERAL MINERVA ATKINSON Final Result Performing Organization Address [facility] de Phone Number INTERFACE SYSTEM Refer to clinic/hospital department * BLOOD CULTURE (04/07/2008 9:56 PM CDT) FINAL REPORT No growth INTERFA CE SYSTEM Blood specimen (specimen) 04/07/2008 9:56 PM CDT 04/07/2008 9:56 PM CDT us Riky Mejía MD MICROBIOLOGY - GENERAL [place]ERVA ATKINSON Final Result Performing Organization Address [facility] de Phone Number INTERFACE SYSTEM Refer to clinic/hospital department * (ABNORMAL) POC GLUCOSE (04/07/2008 8:36 PM CDT) GLUCOSE POC 159(H) 60 - 100 mg/dL [facility] Venous blood specimen (specimen) 04/07/2008 8:36 PM CDT 04/08/2008 7:22 AM CDT us Riky Mejía MD POINT OF CARE TESTING Final Result Performing Organization Address City/[facility] de Phone Number INTERFACE SYSTEM Refer to clinic/hospital department [facility] CLIA# [id number] [address] [place] [address] * (ABNORMAL) POC GLUCOSE (04/07/2008 5:39 PM CDT) GLUCOSE POC 122(H) 60 - 100 mg/dL [facility] Venous blood specimen (specimen) 04/07/2008 5:39 PM CDT 04/08/2008 7:16 AM CDT Riky Mejía MD POINT OF CARE TESTING Final Result Performing Organization Address [facility] de Phone Number INTERFACE SYSTEM Refer to clinic/hospital department [facility] CLIA# [id number] [address] [place] [address] * (ABNORMAL) POC ISTAT EG 7+ (04/07/2008 4:27 PM CDT) FIO2 4 [facility] PO2 67(L) 80 - 105 mmHg [facility] CALCIUM IONIZED 1.15 1.12 - 1.32 mmol/l [facility] HEMATOCRIT ABG 32(L) 38 - 51 % [facility] PCO2 POC 45 35 - 45 mmHg [facility] SODIUM 137(L) 138 - 146 mEq/L [facility] BASE EXCESS 7(H) -2 - 3 mmol/l [facility] PH 7.45 7.35 - 7.45 Unit [facility] O2 SATURATION 94(L) 95 - 98 % [facility] PO2 TEMP CORRECT 67(L) 80 - 105 mmHg [facility] SPECIMEN TYPE Arterial [facility] Comment: Test Performed By [id number] Pulse OX: 99 Hemoglobin calculated from Hematocrit result PCO2 TEMP CORRECT 45 35 - 45 mmHg [facility] HEMOGLOBIN POC 10.9 +/-3 g/dL 12.0 - 16.0 g/dL [facility] POTASSIUM 4.0 3.5 - 4.9 mEq/L [facility] PH TEMP CORRECT 7.45 7.35 - 7.45 Unit [facility] HCO3 (CALC) POC 31.1(H) 22.0 - 26.0 mmol/l [facility] TCO2 (CALC) POC 32(H) 23 - 27 mmol/l [facility] Arterial blood specimen (specimen) 04/07/2008 4:27 PM CDT 04/07/2008 4:30 PM CDT Riky Mejía MD POINT OF CARE TESTING COM F inal Result Performing Organization Address [facility] de Phone Number INTERFACE SYSTEM Refer to clinic/hospital department [facility] CLIA# [id number] [address] [place] [address] * (ABNORMAL) POC GLUCOSE (04/07/2008 11:30 AM CDT) GLUCOSE POC 108(H) 60 - 100 mg/dL [facility] Venous blood specimen (specimen) 04/07/2008 11:30 AM CDT 04/08/2008 7:16 AM CDT Riky Mejía MD POINT OF CARE TESTING Final Result Performing Organization Address [facility] de Phone Number INTERFACE SYSTEM Refer to clinic/hospital department [facility] CLIA# [id number] [address] [place] [address] * (ABNORMAL) POC GLUCOSE (04/07/2008 5:02 AM CDT) GLUCOSE POC 138(H) 60 - 100 mg/dL [facility] Venous blood specimen (specimen) 04/07/2008 5:02 AM CDT 04/07/2008 7:10 AM CDT Riky Mejía MD POINT OF CARE TESTING Final Result INTERFACE SYSTEM Refer to clinic/hospital department [facility] CLIA# [id number] [address] [place] [address] * (ABNORMAL) CBC WITH DIFFERENTIAL (04/07/2008 3:13 AM CDT) HEMATOCRIT 30.3(L) 36.0 - 46.0 % [facility] EOSINOPHILS 1.6 0.0 - 7.0 % [facility] PLATELETS 140 140 - 440 K/ul [facility] PERIPHERAL BLOOD SMEAR REVIEW Automated Diff [facility] EOSINOPHIL ABSOLUTE 0.2 0.0 - 0.7 K/ul [facility] RBC 3.33(L) 4.20 - 5.40 Mil/ul [facility] LYMPHOCYTES 6.7(L) 24.0 - 44.0 % [facility] MCHC 32.3 30.0 - 35.0 g/dL [facility] LYMPHOCYTE ABSOLUTE 0.8(L) 1.2 - 4.0 K/ul [facility] MCV 91.0 84.0 - 103.0 Fl [facility] MPV 11.6 8.9 - 12.8 Fl [facility] BASOPHILS ABSOLUTE 0.0 0.0 - 0.2 K/ul [facility] BASOPHILS 0.2 0.0 - 1.0 % [facility] HEMOGLOBIN 9.8(L) 12.0 - 16.0 g/dL [facility] RDW 16.9(H) 11.0 - 14.5 % [facility] MONOCYTE ABSOLUTE 1.1(H) 0.1 - 0.6 K/ul [facility] MONOCYTES 9.4 2.0 - 10.0 % [facility] WBC 11.7(H) 4.5 - 11.0 K/ul [facility] MCH 29.4 27.0 - 34.0 pg [facility] NEUTROPHIL ABSOLUTE 9.6(H) 2.0 - 8.0 K/ul [facility] NEUTROPHILS 82.1(H) 42.2 - 75.2 % [facility] Blood specimen (specimen) 04/07/2008 3:13 AM CDT 04/07/2008 3:19 AM CDT us Riky Mejía MD HEMATOLOGY ORDERABLES Final Result Performing Organization Address City/[facility] Phone Number INTERFACE SYSTEM Refer to clinic/hospital department [facility] CLIA# [id number] [address] [place] [address] * (ABNORMAL) BASIC METABOLIC PANEL (04/07/2008 3:13 AM CDT) [facility] OSMOLALITY, CALCULATED 291 275 - 295 mOsm/Kg [facility] POTASSIUM 4.1 3.5 - 5.0 mEq/L [facility] CREATININE 0.6(L) 0.7 - 1.2 mg/dL [facility] CALCIUM 8.6 8.4 - 10.5 mg/dL [facility] GLUCOSE 141(H) 70 - 110 mg/dL [facility] CHLORIDE 105 95 - 110 mEq/L [facility] SODIUM 140 136 - 145 mEq/L [facility] ANION GAP 7(L) 9 - 20 mEq/L [facility] BUN 14 7 - 17 mg/dL [facility] CO2 32 22 - 32 mmol/l [facility] Blood specimen (specimen) 04/07/2008 3:13 AM CDT 04/07/2008 3:19 AM CDT us Riky Mejía MD CHEMISTRY ORDERABLES Final Result Performing Organization Address [facility] de Phone Number INTERFACE SYSTEM Refer to clinic/hospital department [facility] CLIA# [id number] [address] [place] [address] * (ABNORMAL) POC GLUCOSE (04/06/2008 8:09 PM CDT) [facility] GLUCOSE POC 118(H) 60 - 100 mg/dL [facility] Venous blood specimen (specimen) 04/06/2008 8:09 PM CDT 04/07/2008 7:13 AM CDT Riky Mejía MD POINT OF CARE TESTING Final Result Performing Organization Address [facility] Phone Number INTERFACE SYSTEM Refer to clinic/hospital department [facility] CLIA# [id number] [address] [place] [address] * (ABNORMAL) POC GLUCOSE (04/06/2008 5:03 PM CDT) GLUCOSE POC 131(H) 60 - 100 mg/dL [facility] Venous blood specimen (specimen) 04/06/2008 5:03 PM CDT 04/07/2008 7:10 AM CDT Riky Mejía MD POINT OF CARE TESTING Final Result Performing Organization Address [facility] Phone Number INTERFACE SYSTEM Refer to clinic/hospital department [facility] CLIA# [id number] [address] [place] [address] * (ABNORMAL) POC GLUCOSE (04/06/2008 10:59 AM CDT) GLUCOSE POC 128(H) 60 - 100 mg/dL [facility] Venous blood specimen (specimen) 04/06/2008 10:59 AM CDT 04/07/2008 7:10 AM CDT Riky Mejía MD POINT OF CARE TESTING Final Result Performing Organization Address [facility] de Phone Number INTERFACE SYSTEM Refer to clinic/hospital department [facility] CLIA# [id number] [address] [place] [address] * XR CHEST PA OR AP (04/06/2008 [...] GLUCOSE POC 126(H) 60 - 100 mg/dL [facility] Venous blood specimen (specimen) 04/06/2008 6:02 AM CDT 04/06/2008 7:01 AM CDT Riky Mejía MD POINT OF CARE TESTING Final Result INTERFACE SYSTEM Refer to clinic/hospital department [facility] CLIA# [id number] [address] [place] [address] * (ABNORMAL) CBC WITH DIFFERENTIAL (04/06/2008 3:55 AM CDT) NEUTROPHILS 81.1(H) 42.2 - 75.2 % [facility] MCH 29.1 27.0 - 34.0 pg [facility] NEUTROPHIL ABSOLUTE 8.9(H) 2.0 - 8.0 K/ul [facility] HEMATOCRIT 31.3(L) 36.0 - 46.0 % [facility] PLATELETS 122(L) 140 - 440 K/ul [facility] EOSINOPHIL ABSOLUTE 0.3 0.0 - 0.7 K/ul [facility] EOSINOPHILS 3.1 0.0 - 7.0 % [facility] RBC 3.47(L) 4.20 - 5.40 Mil/ul [facility] MCHC 32.3 30.0 - 35.0 g/dL [facility] LYMPHOCYTE ABSOLUTE 0.9(L) 1.2 - 4.0 K/ul [facility] LYMPHOCYTES 8.4(L) 24.0 - 44.0 % [facility] MCV 90.2 84.0 - 103.0 Fl [facility] BASOPHILS 0.2 0.0 - 1.0 % [facility] MPV 11.8 8.9 - 12.8 Fl [facility] BASOPHILS ABSOLUTE 0.0 0.0 - 0.2 K/ul [facility] HEMOGLOBIN 10.1(L) 12.0 - 16.0 g/dL [facility] MONOCYTES 7.2 2.0 - 10.0 % [facility] RDW 17.0(H) 11.0 - 14.5 % [facility] MONOCYTE ABSOLUTE 0.8(H) 0.1 - 0.6 K/ul [facility] WBC 11.0 4.5 - 11.0 K/ul [facility] Blood specimen (specimen) 04/06/2008 3:55 AM CDT 04/06/2008 4:00 AM CDT Marquis Scott MD HEMATOLOGY ORDERABLES Final Res ult INTERFACE SYSTEM Refer to clinic/hospital department [facility] CLIA# [id number] [facility] [place] [address] * (ABNORMAL) RENAL FUNCTION PANEL (04/06/2008 3:55 AM CDT) GLUCOSE 218(H) 70 - 110 mg/dL [facility] OSMOLALITY, CALCULATED 295 275 - 295 mOsm/Kg [facility] CHLORIDE 106 95 - 110 mEq/L [facility] ALBUMIN 3.0(L) 3.5 - 5.0 g/dL [facility] SODIUM 138 136 - 145 mEq/L [facility] BUN 22(H) 7 - 17 mg/dL [facility] CO2 30 22 - 32 mmol/l [facility] PHOSPHORUS 2.0(L) 2.5 - 4.6 mg/dL [facility] POTASSIUM 4.7 3.5 - 5.0 mEq/L [facility] ANION GAP 7(L) 9 - 20 mEq/L [facility] CREATININE 0.6(L) 0.7 - 1.2 mg/dL [facility] CALCIUM 8.2(L) 8.4 - 10.5 mg/dL [facility] Blood specimen (specimen) 04/06/2008 3:55 AM CDT 04/06/2008 4:00 AM CDT Marquis Scott MD CHEMISTRY ORDERABLES Final Resu lt Performing Organization Address City/[facility] Co de Phone Number INTERFACE SYSTEM Refer to clinic/hospital department [facility] CLIA# [id number] [address] [place] [address] * (ABNORMAL) POC GLUCOSE (04/05/2008 8:20 PM CDT) GLUCOSE POC 114(H) 60 - 100 mg/dL [facility] Venous blood specimen (specimen) 04/05/2008 8:20 PM CDT 04/06/2008 7:01 AM CDT Riky Mejía MD POINT OF CARE TESTING Final Result Performing Organization Address [facility] Phone Number INTERFACE SYSTEM Refer to clinic/hospital department [facility] CLIA# [id number] [address] [place] [address] * (ABNORMAL) POC GLUCOSE (04/05/2008 4:50 PM CDT) GLUCOSE POC 118(H) 60 - 100 mg/dL [facility] Venous blood specimen (specimen) 04/05/2008 4:50 PM CDT 04/06/2008 7:01 AM CDT us Riky Mejía MD POINT OF CARE TESTING Final Result Performing Organization Address [facility] Phone Number INTERFACE SYSTEM Refer to clinic/hospital department [facility] CLIA# [id number] [address] [place] [address] * IV CATHETER CULTURE (04/05/2008 4:00 PM CDT) FINAL REPORT No growth INTERFA CE SYSTEM 04/05/2008 4:00 PM CDT 04/05/2008 4:00 PM CDT Riky Mejía MD MICROBIOLOGY - GENERAL [place]ERVA ATKINSON Final Result Performing Organization Address [facility] Phone Number INTERFACE [...] GLUCOSE POC 120(H) 60 - 100 mg/dL [facility] Venous blood specimen (specimen) 04/05/2008 11:06 AM CDT 04/06/2008 7:01 AM CDT Riky Mejía MD POINT OF CARE TESTING Final Result INTERFACE SYSTEM Refer to clinic/hospital department [facility] CLIA# [id number] [address] [place] [address] * (ABNORMAL) POC GLUCOSE (04/05/2008 7:26 AM CDT) GLUCOSE POC 120(H) 60 - 100 mg/dL [facility] Venous blood specimen (specimen) 04/05/2008 7:26 AM CDT 04/06/2008 7:01 AM CDT Riky Mejía MD POINT OF CARE TESTING Final Result INTERFACE SYSTEM Refer to clinic/hospital department [facility] CLIA# [id number] [address] [place] [address] * PT AND APTT (04/05/2008 3:04 AM CDT) PTT 24.1 22.5 - 36.5 Secs [facility] Comment: Therapeutic Range: Hi-level PE/DVT heparin protocol 80.1 -95.0 sec Lo-level PE/DVT heparin protocol 67.1 - 80.0 sec Cardiac Heparin Protocol 67.1 - 85.0 sec Neuro Heparin Protocol 67.1 - 80.0 sec As of 09/25/2007 note change in APTT Normal Range. PROTIME 14.8 12.8 - 15.8 Secs [facility] Comment:As of 2007 not e change in normal range. INR 1.0 [facility] Comment: Expected Values for INR: DVT/PE Goal INR 2.5; range 2.0 - 3.0 Valve Replacement Tissue Goal INR 2.5; range 2.0 - 3.0 Mechanical Goal INR 3.0; range 2.5 - 3.5 POST-PR Goal INR 2.5; range 2.0 - 3.0 or Goal 3.0; range 2.5 - 3.5 Atrial Fibrillation Goal INR 2.5; range 2.0 - 3.0 Ischemic Stroke Goal INR 2.5; range 2.0 - 3.0 For additional information see Guidelines for Anticoagulation available from the pharmacy [facility] [phone] Blood specimen (specimen) 04/05/2008 3:04 AM CDT 04/05/2008 3:08 AM CDT Riky Mejía MD HEMATOLOGY ORDERABLES Edite d Performing Organization Address [facility] Phone Number INTERFACE SYSTEM Refer to clinic/hospital department [facility] CLIA# [id number] [address] [place] [address] * MAGNESIUM LEVEL (04/05/2008 3:04 AM CDT) MAGNESIUM 2.1 1.7 - 2.4 mg/dL [facility] Blood specimen (specimen) 04/05/2008 3:04 AM CDT 04/05/2008 3:08 AM CDT us Riky Mejía MD CHEMISTRY ORDERABLES Final Result Performing Organization Address [facility] Phone Number INTERFACE SYSTEM Refer to clinic/hospital department [facility] CLIA# [id number] [address] [place] [address] * (ABNORMAL) PHOSPHORUS (04/05/2008 3:04 AM CDT) PHOSPHORUS 1.7(L) 2.5 - 4.6 mg/dL [facility] Blood specimen (specimen) 04/05/2008 3:04 AM CDT 04/05/2008 3:08 AM CDT Riky Mejía MD CHEMISTRY ORDERABLES Final Result Performing Organization Address [facility] Phone Number INTERFACE SYSTEM Refer to clinic/hospital department [facility] CLIA# [id number] [address] [place] [address] * (ABNORMAL) BASIC METABOLIC PANEL (04/05/2008 3:04 AM CDT) CO2 30 22 - 32 mmol/l [facility] OSMOLALITY, CALCULATED 307(H) 275 - 295 mOsm/Kg [facility] POTASSIUM 3.9 3.5 - 5.0 mEq/L [facility] CREATININE 0.7 0.7 - 1.2 mg/dL [facility] CALCIUM 8.2(L) 8.4 - 10.5 mg/dL [facility] GLUCOSE 126(H) 70 - 110 mg/dL [facility] CHLORIDE 112(H) 95 - 110 mEq/L [facility] SODIUM 146(H) 136 - 145 mEq/L [facility] ANION GAP 8(L) 9 - 20 mEq/L [facility] BUN 32(H) 7 - 17 mg/dL [facility] Blood specimen (specimen) 04/05/2008 3:04 AM CDT 04/05/2008 3:08 AM CDT us Riky Mejía MD CHEMISTRY ORDERABLES Final Result Performing Organization Address City/State/[facility] Co de Phone Number INTERFACE SYSTEM Refer to clinic/hospital department [facility] CLIA# [id number] [address] [place] [address] * (ABNORMAL) CBC WITH DIFFERENTIAL (04/05/2008 3:04 AM CDT) EOSINOPHIL ABSOLUTE 0.2 0.0 - 0.7 K/ul [facility] EOSINOPHILS 2.2 0.0 - 7.0 % [facility] PERIPHERAL BLOOD SMEAR REVIEW Automated Diff [facility] RBC 3.51(L) 4.20 - 5.40 Mil/ul [facility] MCHC 33.2 30.0 - 35.0 g/dL [facility] LYMPHOCYTE ABSOLUTE 1.1(L) 1.2 - 4.0 K/ul [facility] LYMPHOCYTES 9.6(L) 24.0 - 44.0 % [facility] MCV 88.3 84.0 - 103.0 Fl [facility] BASOPHILS 0.1 0.0 - 1.0 % [facility] MPV 11.0 8.9 - 12.8 Fl [facility] BASOPHILS ABSOLUTE 0.0 0.0 - 0.2 K/ul [facility] HEMOGLOBIN 10.3(L) 12.0 - 16.0 g/dL [facility] MONOCYTES 8.4 2.0 - 10.0 % [facility] RDW 17.1(H) 11.0 - 14.5 % [facility] MONOCYTE ABSOLUTE 0.9(H) 0.1 - 0.6 K/ul [facility] WBC 10.9 4.5 - 11.0 K/ul [facility] NEUTROPHILS 79.7(H) 42.2 - 75.2 % [facility] MCH 29.3 27.0 - 34.0 pg [facility] NEUTROPHIL ABSOLUTE 8.7(H) 2.0 - 8.0 K/ul [facility] HEMATOCRIT 31.0(L) 36.0 - 46.0 % [facility] PLATELETS 91(L) 140 - 440 K/ul [facility] Blood specimen (specimen) 04/05/2008 3:04 AM CDT 04/05/2008 3:08 AM CDT Riky Mejía MD HEMATOLOGY ORDERABLES Final Result Performing Organization Address City/State/[facility] Co de Phone Number INTERFACE SYSTEM Refer to clinic/hospital department [facility] CLIA# [id number] [address] [place] [address] * (ABNORMAL) RENAL FUNCTION PANEL (04/04/2008 5:04 PM CDT) ANION GAP 8(L) 9 - 20 mEq/L [facility] PHOSPHORUS 1.9(L) 2.5 - 4.6 mg/dL [facility] ALBUMIN 2.9(L) 3.5 - 5.0 g/dL [facility] CHLORIDE 117(H) 95 - 110 mEq/L [facility] CREATININE 1.2 0.7 - 1.2 mg/dL [facility] SODIUM 147(H) 136 - 145 mEq/L [facility] GLUCOSE 124(H) 70 - 110 mg/dL [facility] CO2 26 22 - 32 mmol/l [facility] CALCIUM 7.5(L) 8.4 - 10.5 mg/dL [facility] POTASSIUM 3.5 3.5 - 5.0 mEq/L [facility] OSMOLALITY, CALCULATED 309(H) 275 - 295 mOsm/Kg [facility] BUN 34(H) 7 - 17 mg/dL [facility] Blood specimen (specimen) 04/04/2008 5:04 PM CDT 04/04/2008 5:06 PM CDT us Riky Mejía MD CHEMISTRY ORDERABLES Edited INTERFACE SYSTEM Refer to clinic/hospital department [facility] CLIA# [id number] [address] [place] [address] * (ABNORMAL) CBC WITH DIFFERENTIAL (04/04/2008 5:04 PM CDT) HEMOGLOBIN 9.6(L) 12.0 - 16.0 g/dL [facility] RDW 16.8(H) 11.0 - 14.5 % [facility] MONOCYTE ABSOLUTE 0.9(H) 0.1 - 0.6 K/ul [facility] MONOCYTES 10.0 2.0 - 10.0 % [facility] WBC 9.4 4.5 - 11.0 K/ul [facility] MCH 29.0 27.0 - 34.0 pg [facility] NEUTROPHIL ABSOLUTE 7.3 2.0 - 8.0 K/ul [facility] NEUTROPHILS 77.7(H) 42.2 - 75.2 % [facility] HEMATOCRIT 28.9(L) 36.0 - 46.0 % [facility] EOSINOPHILS 1.1 0.0 - 7.0 % [facility] PLATELETS 83(L) 140 - 440 K/ul [facility] PERIPHERAL BLOOD SMEAR REVIEW Automated Diff [facility] EOSINOPHIL ABSOLUTE 0.1 0.0 - 0.7 K/ul [facility] RBC 3.31(L) 4.20 - 5.40 Mil/ul [facility] LYMPHOCYTES 11.1(L) 24.0 - 44.0 % [facility] MCHC 33.2 30.0 - 35.0 g/dL [facility] LYMPHOCYTE ABSOLUTE 1.0(L) 1.2 - 4.0 K/ul [facility] MCV 87.3 84.0 - 103.0 Fl [facility] MPV 11.6 8.9 - 12.8 Fl [facility] BASOPHILS ABSOLUTE 0.0 0.0 - 0.2 K/ul [facility] BASOPHILS 0.1 0.0 - 1.0 % [facility] Blood specimen (specimen) 04/04/2008 5:04 PM CDT 04/04/2008 5:06 PM CDT us Riky Mejía MD HEMATOLOGY ORDERABLES Final Result Performing Organization Address City/State/[facility] Co de Phone Number INTERFACE SYSTEM Refer to clinic/hospital department [facility] CLIA# [id number] [facility] [place] [address] * (ABNORMAL) POC ISTAT EG 7+ (04/04/2008 9:15 AM CDT) SODIUM 145 138 - 146 mEq/L [facility] BASE EXCESS 0 -2 - 3 mmol/l [facility] PH 7.39 7.35 - 7.45 Unit [facility] O2 SATURATION 94(L) 95 - 98 % [facility] PO2 TEMP CORRECT 70(L) 80 - 105 mmHg [facility] PCO2 TEMP CORRECT 42 35 - 45 mmHg [facility] HEMOGLOBIN POC 8.8 +/-3 g/dL 12.0 - 16.0 g/dL [facility] POTASSIUM 3.2(L) 3.5 - 4.9 mEq/L [facility] PH TEMP CORRECT 7.39 7.35 - 7.45 Unit [facility] HCO3 (CALC) POC 25.0 22.0 - 26.0 mmol/l [facility] TCO2 (CALC) POC 26 23 - 27 mmol/l [facility] SPECIMEN TYPE Arterial [facility] Comment: Test Performed By [id number] Pulse OX: 94 Hemoglobin calculated from Hematocrit result PO2 70(L) 80 - 105 mmHg [facility] CALCIUM IONIZED 1.12 1.12 - 1.32 mmol/l [facility] HEMATOCRIT ABG 26(L) 38 - 51 % [facility] PCO2 POC 42 35 - 45 mmHg [facility] Arterial blood specimen (specimen) 04/04/2008 9:15 AM CDT 04/04/2008 9:18 AM CDT Riky Mejía MD POINT OF CARE TESTING COM F inal Result Performing Organization Address [facility] de Phone Number INTERFACE SYSTEM Refer to clinic/hospital department [facility] CLIA# [id number] [address] [place] [address] * PTT (04/04/2008 4:19 AM CDT) PTT 26.4 22.5 - 36.5 Secs [facility] Comment: Therapeutic Range: Hi-level [...] HEMATOLOGY ORDERABLES Final Result Performing Organization Address City/[facility]/ZIP Co de Phone Number INTERFACE SYSTEM Refer to clinic/hospital department [facility] CLIA# [id number] [address] [place] [address] * PROTIME-INR (04/04/2008 4:19 AM CDT) PROTIME 15.2 12.8 - 15.8 Secs [facility] Comment:As of 2007 not e change in normal range. INR 1.1 [facility] Comment: Expected Values for INR: DVT/PE Goal INR 2.5; range 2.0 - 3.0 Valve Replacement Tissue Goal INR 2.5; range 2.0 - 3.0 Mechanical Goal INR 3.0; range 2.5 - 3.5 POST-PR Goal INR 2.5; range 2.0 - 3.0 or Goal 3.0; range 2.5 - 3.5 Atrial Fibrillation Goal INR 2.5; range 2.0 - 3.0 Ischemic Stroke Goal INR 2.5; range 2.0 - 3.0 For additional information see Guidelines for Anticoagulation available from the pharmacy Jolene Ramirez, Pharm D. [phone] Blood specimen (specimen) 04/04/2008 4:19 AM CDT 04/04/2008 4:23 AM CDT Riky Mejía MD HEMATOLOGY ORDERABLES Final Result Performing Organization Address [facility] Phone Number INTERFACE SYSTEM Refer to clinic/hospital department [facility] CLIA# [id number] [address] [place] [address] * (ABNORMAL) PHOSPHORUS (04/04/2008 4:19 AM CDT) PHOSPHORUS 1.9(L) 2.5 - 4.6 mg/dL [facility] Blood specimen (specimen) 04/04/2008 4:19 AM CDT 04/04/2008 4:23 AM CDT Riky Mejía MD CHEMISTRY ORDERABLES Final Result Performing Organization Address [facility] de Phone Number INTERFACE SYSTEM Refer to clinic/hospital department [facility] CLIA# [id number] [address] [place] [address] * MAGNESIUM LEVEL (04/04/2008 4:19 AM CDT) [facility] MAGNESIUM 1.8 1.7 - 2.4 mg/dL [facility] Blood specimen (specimen) 04/04/2008 4:19 AM CDT 04/04/2008 4:23 AM CDT Riky Mejía MD CHEMISTRY ORDERABLES Final Result Performing Organization Address [facility] de Phone Number INTERFACE SYSTEM Refer to clinic/hospital department [facility] CLIA# [id number] [address] [place] [address] * (ABNORMAL) COMPREHENSIVE METABOLIC PANEL (04/04/2008 4:19 AM CDT) [facility] ALBUMIN/GLOBULIN RATIO 1.4 1.0 - 2.3 [facility] POTASSIUM 3.3(L) 3.5 - 5.0 mEq/L [facility] ANION GAP 11 9 - 20 mEq/L [facility] ALBUMIN 3.0(L) 3.5 - 5.0 g/dL [facility] CREATININE 2.1(H) 0.7 - 1.2 mg/dL [facility] ALT 20 4 - 36 IU/L [facility] CALCIUM 8.3(L) 8.4 - 10.5 mg/dL [facility] GLUCOSE 124(H) 70 - 110 mg/dL [facility] ALKALINE PHOSPHATASE 42 25 - 100 U/L [facility] CHLORIDE 111(H) 95 - 110 mEq/L [facility] OSMOLALITY, CALCULATED 310(H) 275 - 295 mOsm/Kg [facility] GLOBULIN (CALC) 2.2(L) 2.4 - 3.9 g/dL [facility] TOTAL PROTEIN 5.2(L) 6.3 - 8.2 g/dL [facility] SODIUM 146(H) 136 - 145 mEq/L [facility] BILIRUBIN TOTAL 0.9 0.3 - 1.2 mg/dL [facility] CO2 27 22 - 32 mmol/l [facility] BUN 42(H) 7 - 17 mg/dL [facility] AST 104(H) 8 - 33 U/L [facility] Blood specimen (specimen) 04/04/2008 4:19 AM CDT 04/04/2008 4:23 AM CDT Riky Mejía MD CHEMISTRY ORDERABLES Final Result INTERFACE SYSTEM Refer to clinic/hospital department [facility] CLIA# [id number] [address] [place] [address] * (ABNORMAL) CBC WITH DIFFERENTIAL (04/04/2008 4:19 AM CDT) HEMATOCRIT 28.7(L) 36.0 - 46.0 % [facility] EOSINOPHILS 0.2 0.0 - 7.0 % [facility] PLATELETS 83(L) 140 - 440 K/ul [facility] PERIPHERAL BLOOD SMEAR REVIEW Automated Diff [facility] EOSINOPHIL ABSOLUTE 0.0 0.0 - 0.7 K/ul [facility] RBC 3.33(L) 4.20 - 5.40 Mil/ul [facility] LYMPHOCYTES 12.1(L) 24.0 - 44.0 % [facility] MCHC 33.4 30.0 - 35.0 g/dL [facility] LYMPHOCYTE ABSOLUTE 1.1(L) 1.2 - 4.0 K/ul [facility] MCV 86.2 84.0 - 103.0 Fl [facility] MPV 11.5 8.9 - 12.8 Fl [facility] BASOPHILS ABSOLUTE 0.0 0.0 - 0.2 K/ul [facility] BASOPHILS 0.2 0.0 - 1.0 % [facility] HEMOGLOBIN 9.6(L) 12.0 - 16.0 g/dL [facility] RDW 16.1(H) 11.0 - 14.5 % [facility] MONOCYTE ABSOLUTE 1.0(H) 0.1 - 0.6 K/ul [facility] MONOCYTES 10.5(H) 2.0 - 10.0 % [facility] WBC 9.0 4.5 - 11.0 K/ul [facility] MCH 28.8 27.0 - 34.0 pg [facility] NEUTROPHIL ABSOLUTE 6.9 2.0 - 8.0 K/ul [facility] NEUTROPHILS 77.0(H) 42.2 - 75.2 % [facility] Blood specimen (specimen) 04/04/2008 4:19 AM CDT 04/04/2008 4:23 AM CDT us Riky Mejía MD HEMATOLOGY ORDERABLES Final Result INTERFACE SYSTEM Refer to clinic/hospital department [facility] CLIA# [id number] [address] [place] [address] * (ABNORMAL) POC ISTAT EG 7+ (04/04/2008 4:07 AM CDT) POTASSIUM 3.1(L) 3.5 - 4.9 mEq/L [facility] PH TEMP CORRECT 7.45 7.35 - 7.45 Unit [facility] HCO3 (CALC) POC 24.5 22.0 - 26.0 mmol/l [facility] TCO2 (CALC) POC 26 23 - 27 mmol/l [facility] FIO2 50 [facility] PO2 138(H) 80 - 105 mmHg [facility] CALCIUM IONIZED 1.10(L) 1.12 - 1.32 mmol/l [facility] HEMATOCRIT ABG 25(L) 38 - 51 % [facility] PCO2 POC 35 35 - 45 mmHg [facility] SODIUM 143 138 - 146 mEq/L [facility] BASE EXCESS 1 -2 - 3 mmol/l [facility] PH 7.45 7.35 - 7.45 Unit [facility] O2 SATURATION 99(H) 95 - 98 % [facility] PO2 TEMP CORRECT 138(H) 80 - 105 mmHg [facility] SPECIMEN TYPE Arterial [facility] Comment: Test Performed By [id number] Tidal volume: 500 PEEP: 10 Rate: 14 Pulse OX: 100 Hemoglobin calculated from Hematocrit result PCO2 TEMP CORRECT 35 35 - 45 mmHg [facility] HEMOGLOBIN POC 8.5 +/-3 g/dL 12.0 - 16.0 g/dL [facility] Arterial blood specimen (specimen) 04/04/2008 4:07 AM CDT 04/04/2008 5:13 AM CDT us Riky Mejía MD POINT OF CARE TESTING COM F inal Result INTERFACE SYSTEM Refer to clinic/hospital department [facility] CLIA# [id number] [facility] [place] [address] * MRSA CULTURE (04/03/2008 9:03 PM CDT) FINAL REPORT Culture screen for MRSA negative INTERFACE SYSTEM 04/03/2008 9:03 PM CDT 04/03/2008 9:03 PM CDT us Riky Mejía MD MICROBIOLOGY - GENERAL [place] [facility] Final Result Performing Organization Address City/[facility]/ZIP Co de Phone Number INTERFACE SYSTEM [...] CALCIUM IONIZED 1.00(L) 1.12 - 1.32 mmol/l [facility] HEMATOCRIT ABG 24(L) 38 - 51 % [facility] PCO2 POC 36 35 - 45 mmHg [facility] SODIUM 144 138 - 146 mEq/L [facility] BASE EXCESS 0 -2 - 3 mmol/l [facility] PH 7.44 7.35 - 7.45 Unit [facility] O2 SATURATION 98 95 - 98 % [facility] PO2 TEMP CORRECT 101 80 - 105 mmHg [facility] SPECIMEN TYPE Arterial [facility] Comment: Test Performed By [id number] Tidal volume: 500 PEEP: 10 Rate: 16 Pulse OX: 96 Hemoglobin calculated from Hematocrit result PCO2 TEMP CORRECT 36 35 - 45 mmHg [facility] HEMOGLOBIN POC 8.2 +/-3 g/dL 12.0 - 16.0 g/dL [facility] POTASSIUM 3.2(L) 3.5 - 4.9 mEq/L [facility] PH TEMP CORRECT 7.44 7.35 - 7.45 Unit [facility] HCO3 (CALC) POC 23.9 22.0 - 26.0 mmol/l [facility] TCO2 (CALC) POC 25 23 - 27 mmol/l [facility] FIO2 60 [facility] PO2 101 80 - 105 mmHg [facility] Arterial blood specimen (specimen) 04/03/2008 8:35 PM CDT 04/03/2008 8:48 PM CDT Riky Mejía MD POINT OF CARE TESTING COM F inal Result Performing Organization Address [facility] de Phone Number INTERFACE SYSTEM Refer to clinic/hospital department [facility] CLIA# [id number] [address] [place] [address] * TYPE AND CROSSMATCH (04/03/2008 8:13 PM CDT) [facility] BLOOD BANK PRODUCT INTERFACE SYSTEM Blood specimen (specimen) 04/03/2008 8:13 PM CDT 04/03/2008 8:17 PM CDT Riky Mejía MD BLOOD BANK ORDERABLES Edite d Performing Organization Address [facility] Phone Number INTERFACE SYSTEM Refer to clinic/hospital department * (ABNORMAL) CBC WITH DIFFERENTIAL (04/03/2008 8:13 PM CDT) HEMATOCRIT 26.9(L) 36.0 - 46.0 % [facility] PLATELETS 102(L) 140 - 440 K/ul [facility] EOSINOPHIL ABSOLUTE 0.0 0.0 - 0.7 K/ul [facility] EOSINOPHILS 0.1 0.0 - 7.0 % [facility] RBC 3.13(L) 4.20 - 5.40 Mil/ul [facility] MCHC 33.8 30.0 - 35.0 g/dL [facility] LYMPHOCYTE ABSOLUTE 1.1(L) 1.2 - 4.0 K/ul [facility] LYMPHOCYTES 12.2(L) 24.0 - 44.0 % [facility] MCV 85.9 84.0 - 103.0 Fl [facility] BASOPHILS 0.1 0.0 - 1.0 % [facility] MPV 11.7 8.9 - 12.8 Fl [facility] BASOPHILS ABSOLUTE 0.0 0.0 - 0.2 K/ul [facility] HEMOGLOBIN 9.1(L) 12.0 - 16.0 g/dL [facility] MONOCYTES 11.9(H) 2.0 - 10.0 % [facility] RDW 16.2(H) 11.0 - 14.5 % [facility] MONOCYTE ABSOLUTE 1.1(H) 0.1 - 0.6 K/ul [facility] WBC 9.0 4.5 - 11.0 K/ul [facility] NEUTROPHILS 75.7(H) 42.2 - 75.2 % [facility] MCH 29.1 27.0 - 34.0 pg [facility] NEUTROPHIL ABSOLUTE 6.8 2.0 - 8.0 K/ul [facility] Blood specimen (specimen) 04/03/2008 8:13 PM CDT 04/03/2008 8:17 PM CDT us Riky Mejía MD HEMATOLOGY ORDERABLES Final Result INTERFACE SYSTEM Refer to clinic/hospital department [facility]# [id number] [address] [place] [address] * PTT (04/03/2008 8:13 PM CDT) PTT 28.1 22.5 - 36.5 Secs [facility] Comment: Therapeutic Range: Hi-level [...] HEMATOLOGY ORDERABLES Final Result Performing Organization Address [facility] Phone Number INTERFACE SYSTEM Refer to clinic/hospital department [facility] CLIA# [id number] [address] [place] [address] * (ABNORMAL) PROTIME-INR (04/03/2008 8:13 PM CDT) INR 1.2 [facility] Comment: Expected Values for INR: DVT/PE Goal INR 2.5; range 2.0 - 3.0 Valve Replacement Tissue Goal INR 2.5; range 2.0 - 3.0 Mechanical Goal INR 3.0; range 2.5 - 3.5 POST-PR Goal INR 2.5; range 2.0 - 3.0 or Goal 3.0; range 2.5 - 3.5 Atrial Fibrillation Goal INR 2.5; range 2.0 - 3.0 Ischemic Stroke Goal INR 2.5; range 2.0 - 3.0 For additional information see Guidelines for Anticoagulation available from the pharmacy Catrachito Pham [phone] PROTIME 16.3(H) 12.8 - 15.8 Secs [facility] Comment:As of 2007 not e change in normal range. Blood specimen (specimen) 04/03/2008 8:13 PM CDT 04/03/2008 8:17 PM CDT Riky Mejía MD HEMATOLOGY ORDERABLES Final Result Performing Organization Address [facility] de Phone Number INTERFACE SYSTEM Refer to clinic/hospital department [facility] CLIA# [id number] [address] [place] [address] * ANTIBODY SCREEN (04/03/2008 8:13 PM CDT) [facility] ANTIBODY SCREEN Negative [facility] Blood specimen (specimen) 04/03/2008 8:13 PM CDT 04/03/2008 8:17 PM CDT us Riky Mejía MD BLOOD BANK ORDERABLES Final Result Performing Organization Address [facility] de Phone Number INTERFACE SYSTEM Refer to clinic/hospital department [facility] CLIA# [id number] [address] [place] [address] * ABORH TYPING (04/03/2008 8:13 PM CDT) [facility] ABO/RH TYPE O Positive [facility] Blood specimen (specimen) 04/03/2008 8:13 PM CDT 04/03/2008 8:17 PM CDT us Riky Mejía MD BLOOD BANK ORDERABLES Final Result Performing Organization Address [facility] de Phone Number INTERFACE SYSTEM Refer to clinic/hospital department [facility] CLIA# [id number] [address] [place] [address] * (ABNORMAL) COMPREHENSIVE METABOLIC PANEL (04/03/2008 8:13 PM CDT) [facility] GLUCOSE 140(H) 70 - 110 mg/dL [facility] ALKALINE PHOSPHATASE 40 25 - 100 U/L [facility] CHLORIDE 112(H) 95 - 110 mEq/L [facility] AST 97(H) 8 - 33 U/L [facility] GLOBULIN (CALC) 1.9(L) 2.4 - 3.9 g/dL [facility] TOTAL PROTEIN 4.9(L) 6.3 - 8.2 g/dL [facility] SODIUM 146(H) 136 - 145 mEq/L [facility] ANION GAP 11 9 - 20 mEq/L [facility] CO2 26 22 - 32 mmol/l [facility] BUN 47(H) 7 - 17 mg/dL [facility] ALT 19 4 - 36 IU/L [facility] ALBUMIN/GLOBULIN RATIO 1.6 1.0 - 2.3 [facility] POTASSIUM 3.2(L) 3.5 - 5.0 mEq/L [facility] OSMOLALITY, CALCULATED 312(H) 275 - 295 mOsm/Kg [facility] ALBUMIN 3.0(L) 3.5 - 5.0 g/dL [facility] CREATININE 2.9(H) 0.7 - 1.2 mg/dL [facility] BILIRUBIN TOTAL 0.6 0.3 - 1.2 mg/dL [facility] CALCIUM 7.6(L) 8.4 - 10.5 mg/dL [facility] Blood specimen (specimen) 04/03/2008 8:13 PM CDT 04/03/2008 8:17 PM CDT Riky Mejía MD CHEMISTRY ORDERABLES Edited INTERFACE SYSTEM Refer to clinic/hospital department [facility] CLIA# [id number] [address] [place] [address] documented in this encounter Visit Diagnoses Not on filedocumented in this encounter Additional Health Concerns Infection Onset Date Last Indicated Resolved Time MRSA Comment:Kapil 10/26/15 10/27/2015 10/27/2015 documented as of this encounter Care Teams Adult Probation Officer Relationship Specialty Start Date End Date Jose Bowers MD [address] [place] [address] PCP - General 12/31/05 documented as of this encounter
--- OUTSIDE RECORDS SUMMARY | 2025-05-12 12:19 | XMS_ITS | Encounter Summary ---
Author Organization [facility] Address [address] [place] [address] Care Team Providers Care Channel Layer Name Role Phone Jose Bowers MD Primary Care Provider Levon lowry Encounter Details Date Type Department Care Team (Latest Contact Info) Description 04/28/2008 Outpatient Historical [facility] [address] [place] [address] AMBULANCE, [facility] Paraplegia ([facility]); Pressure Ulcer, Upper Back; Pressure Ulcer, Unspecified Stage; Wheelchair Dependence; Bed Confinement Status; Encounter for Long-Term (Current) Use of Other Medications; Encounter for Long-Term (Current) Use of Insulin ([facility]); Personal History of Allergy to Penicillin; Personal History of Allergy to Narcotic Agent Social History Tobacco Use Types Packs/Day Years Used Date Smoking Tobacco: Never Assessed Comments Unknown Sex and Gender Information Value Date Recorded Sex Assigned at Not on file 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 Gender Identity Not on file Sexual Orientation Not on file documented as of this encounter Plan of Treatment Not on file documented as of this encounter Visit Diagnoses Diagnosis Paraplegia ([facility]) Paraplegia Pressure ulcer, upper back(707.02) Pressure ulcer, upper back Pressure ulcer, unspecified stage(707.20) Pressure ulcer, unspecified stage Wheelchair dependence Bed confinement status Encounter for long-term (current) use of other medications Encounter for long-term (current) use of insulin ([facility]) Encounter for long-term (current) use of insulin Personal history of allergy to penicillin Personal history of allergy to narcotic agent documented in this encounter Additional Health Concerns Infection Onset Date Last Indicated Resolved Time MRSA Comment:Kapil 10/26/15 10/27/2015 10/27/2015 documented as of this encounter Care Teams Channel Layer Relationship Specialty Start Date End Date Jose Bowers MD [address] [place] [id number] PCP - General 12/31/05 documented as of this encounter
--- OUTSIDE RECORDS SUMMARY | 2025-05-12 12:19 | XMS_ITS | Encounter Summary ---
Author Organization [facility] Address [address] [place] [address] Care Team Providers Care Boom Man Name Role Phone Jose Bowers MD Primary Care Provider Unavailab le Encounter Details Date Type Department Care Team (Late st Contact Info) Description 11/01/2005 Outpatient Historical [facility] [address] [place] [id number] Jose Bowers MD [address] [place] [address] Unspecified Paralysis (CMS/HCC) (Primary Dx); Neurogenic Bladder, NOS Social History Tobacco Use Types Packs/Day Years Used Date Smoking Tobacco: Never Assessed Comments Unknown Sex and Gender Information Value Date Recorded Sex Assigned at Not on file Legal Sex Female 6:28 AM [employer] Gender Identity Not on file Sexual Orientation Not on file documented as of this encounter Plan of Treatment Not on file documented as of this encounter Visit Diagnoses Diagnosis Paralysis, unspecified- Primary Neurogenic bladder, NOS documented in this encounter Additional Health Concerns Infection Onset Date Last Indicated Resolved Time MRSA Comment:Kapil 10/26/15 10/27/2015 10/27/2015 documented as of this encounter Care Teams Boom Man Relationship Specialty Start Date End Date Jose Bowers MD [address] [place] [address] PCP - General 12/31/05 documented as of this encounter
--- OUTSIDE RECORDS SUMMARY | 2025-05-12 12:19 | XMS_ITS | Encounter Summary ---
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 Gender Identity Not on file Sexual Orientation Not on file documented as of this encounter Plan of Treatment Not on file documented as of this encounter Procedures Procedure Name Priority Date/Time Associated Diagnosis Comments POC GLUCOSE Routine 05/12/2008 7:37 AM ME[employer] SALES [employer] STORAGE MANAGER POC GLUCOSE Routine 05/11/2008 9:43 PM ME[employer] SALES [employer] STORAGE MANAGER POC GLUCOSE Routine 05/11/2008 5:35 PM ME[employer] SALES AND STORAGE MANAGER POC GLUCOSE Routine 05/11/2008 11:40 AM MEAT SALES AND STORAGE MANAGER POC GLUCOSE Routine 05/11/2008 7:38 AM MEAT SALES AND STORAGE MANAGER POC GLUCOSE Routine 05/10/2008 9:54 PM MEAT SALES AND STORAGE MANAGER POC GLUCOSE Routine 05/10/2008 5:34 PM MEAT SALES AND STORAGE MANAGER POC GLUCOSE Routine 05/10/2008 12:08 PM ME[employer] SALES AND STORAGE MANAGER POC GLUCOSE Routine 05/10/2008 8:31 AM MEAT SALES AND STORAGE MANAGER CBC WITH DIFFERENTIAL Routine 05/10/2008 5:47 AM MEAT SALES AND STORAGE MANAGER COMPREHENSIVE METABOLIC PANEL Routine 05/10/2008 5:47 AM ME[employer] SALES [employer] STORAGE MANAGER POC GLUCOSE Routine 05/09/2008 9:17 PM MEAT SALES AND STORAGE MANAGER POC GLUCOSE Routine 05/09/2008 6:31 PM MEAT SALES AND STORAGE MANAGER POC GLUCOSE Routine 05/09/2008 12:20 PM MEAT SALES AND STORAGE MANAGER POC GLUCOSE Routine 05/09/2008 8:50 AM ME[employer] SALES AND STORAGE MANAGER POC GLUCOSE Routine 05/08/2008 8:06 PM CDT [...] * (ABNORMAL) POC GLUCOSE (05/12/2008 7:37 AM ME[employer] SALES [employer] STORAGE MANAGER) GLUCOSE POC 124(H) 60 - 100 mg/dL [facility] Venous blood specimen (specimen) 05/12/2008 7:37 AM ME[employer] SALES [employer] STORAGE MANAGER 05/13/2008 3:52 AM ME[employer] SALES [employer] STORAGE MANAGER us Riky Mejía MD POINT OF CARE TESTING Final Result Performing Organization Address [facility] Phone Number INTERFACE SYSTEM Refer to clinic/hospital department [facility] CLIA# [id number] [address] [place] [address] * (ABNORMAL) POC GLUCOSE (05/11/2008 9:43 PM ME[employer] SALES [employer] STORAGE MANAGER) GLUCOSE POC 123(H) 60 - 100 mg/dL [facility] Venous blood specimen (specimen) 05/11/2008 9:43 PM ME[employer] SALES [employer] STORAGE MANAGER 05/12/2008 3:33 AM ME[employer] SALES [employer] STORAGE MANAGER us Riky Mejía MD POINT OF CARE TESTING Final Result Performing Organization Address [facility] de Phone Number INTERFACE SYSTEM Refer to clinic/hospital department [facility] CLIA# [id number] [address] [place] [address] * (ABNORMAL) POC GLUCOSE (05/11/2008 5:35 PM ME[employer] SALES [employer] STORAGE MANAGER) GLUCOSE POC 117(H) 60 - 100 mg/dL [facility] Venous blood specimen (specimen) 05/11/2008 5:35 PM ME[employer] SALES [employer] STORAGE MANAGER 05/12/2008 3:33 AM MEAT SALES AND STORAGE MANAGER Riky Mejía MD POINT OF CARE TESTING Final Result Performing Organization Address [facility] de Phone Number INTERFACE SYSTEM Refer to clinic/hospital department [facility] CLIA# [id number] [address] [place] [address] * (ABNORMAL) POC GLUCOSE (05/11/2008 11:40 AM ME[employer] SALES [employer] STORAGE MANAGER) GLUCOSE POC 132(H) 60 - 100 mg/dL [facility] Venous blood specimen (specimen) 05/11/2008 11:40 AM ME[employer] SALES [employer] STORAGE MANAGER 05/12/2008 3:30 AM ME[employer] SALES [employer] STORAGE MANAGER Riky Mejía MD POINT OF CARE TESTING Final Result Performing Organization Address [facility] Phone Number INTERFACE SYSTEM Refer to clinic/hospital department [facility] CLIA# [id number] [address] [place] [address] * (ABNORMAL) POC GLUCOSE (05/11/2008 7:38 AM ME[employer] SALES [employer] STORAGE MANAGER) GLUCOSE POC 121(H) 60 - 100 mg/dL [facility] Venous blood specimen (specimen) 05/11/2008 7:38 AM ME[employer] SALES [employer] STORAGE MANAGER 05/12/2008 3:33 AM ME[employer] SALES [employer] STORAGE MANAGER Riky Mejía MD POINT OF CARE TESTING Final Result Performing Organization Address [facility] de Phone Number INTERFACE SYSTEM Refer to clinic/[facility] CLIA# [id number] [address] [place] [address] * (ABNORMAL) POC GLUCOSE (05/10/2008 9:54 PM ME[employer] SALES [employer] STORAGE MANAGER) GLUCOSE POC 122(H) 60 - 100 mg/dL [facility] Venous blood specimen (specimen) 05/10/2008 9:54 PM ME[employer] SALES [employer] STORAGE MANAGER 05/11/2008 4:24 AM ME[employer] SALES [employer] STORAGE MANAGER Riky Mejía MD POINT OF CARE TESTING Final Result Performing Organization Address [facility] Phone Number INTERFACE SYSTEM Refer to clinic/hospital department [facility] CLIA# [id number] [address] [place] [address] * (ABNORMAL) POC GLUCOSE (05/10/2008 5:34 PM ME[employer] SALES [employer] STORAGE MANAGER) GLUCOSE POC 111(H) 60 - 100 mg/dL [facility] Venous blood specimen (specimen) 05/10/2008 5:34 PM ME[employer] SALES [employer] STORAGE MANAGER 05/11/2008 4:24 AM ME[employer] SALES [employer] STORAGE MANAGER Riky Mejía MD POINT OF CARE TESTING Final Result Performing Organization Address [facility] Phone Number INTERFACE SYSTEM Refer to clinic/hospital department [facility] CLIA# [id number] [address] [place] [address] * (ABNORMAL) POC GLUCOSE (05/10/2008 12:08 PM ME[employer] SALES [employer] STORAGE MANAGER) GLUCOSE POC 127(H) 60 - 100 mg/dL [facility] Venous blood specimen (specimen) 05/10/2008 12:08 PM [employer] SALES [employer]ORAGE MANAGER 05/11/2008 4:18 AM MEAT SALES [employer] STORAGE MANAGER Riky Mejía MD POINT OF CARE TESTING Final Result Performing Organization Address [facility] de Phone Number INTERFACE SYSTEM Refer to clinic/hospital department [facility] CLIA# [id number] [address] [place] [address] * (ABNORMAL) POC GLUCOSE (05/10/2008 8:31 AM ME[employer] SALES [employer] STORAGE MANAGER) GLUCOSE POC 122(H) 60 - 100 mg/dL [facility] Venous blood specimen (specimen) 05/10/2008 8:31 AM ME[employer] SALES [employer] STORAGE MANAGER 05/11/2008 4:18 AM ME[employer] SALES [employer] STORAGE MANAGER Riky Mejía MD POINT OF CARE TESTING Final Result INTERFACE SYSTEM Refer to clinic/hospital department [facility] CLIA# [id number] [address] [place] [address] * (ABNORMAL) COMPREHENSIVE METABOLIC PANEL (05/10/2008 5:47 AM ME[employer] SAL[employer]ORAGE MANAGER) GLOBULIN (CALC) 2.3(L) 2.4 - 3.9 g/dL [facility] SODIUM 141 136 - 145 mEq/L [facility] BILIRUBIN TOTAL 0.4 0.3 - 1.2 mg/dL [facility] TOTAL PROTEIN 5.0(L) 6.3 - 8.2 g/dL [facility] BUN 7 7 - 17 mg/dL [facility] AST 24 8 - 33 U/L [facility] CO2 30 [...] LAB Blood specimen (specimen) 05/10/2008 5:47 AM ME[employer] SALES [employer] STORAGE MANAGER 05/10/2008 5:52 AM ME[employer] SALES [employer] STORAGE MANAGER Riky Mejía MD CHEMISTRY ORDERABLES Final Result INTERFACE SYSTEM Refer to clinic/hospital department [facility] CLIA# [id number] [facility] [place] [address] * (ABNORMAL) CBC WITH DIFFERENTIAL (05/10/2008 5:47 AM ME[employer] SALES [employer] STORAGE MANAGER) LYMPHOCYTE ABSOLUTE 0.9(L) 1.2 - 4.0 K/ul [...] LAB Blood specimen (specimen) 05/10/2008 5:47 AM ME[employer] SALES [employer] STORAGE MANAGER 05/10/2008 5:52 AM MEAT SALES [employer] STORAGE MANAGER us Ottoniel Vanegas MD HEMATOLOGY ORDERABLES Teresa l Result Performing Organization Address [facility] Phone Number INTERFACE SYSTEM Refer to clinic/hospital department [facility] CLIA# [id number] [address] [place] [address] * (ABNORMAL) POC GLUCOSE (05/09/2008 9:17 PM ME[employer] SALES [employer] STORAGE MANAGER) COMMENT POC Follow Protocol [facility] GLUCOSE POC 116(H) 60 - 100 mg/dL [facility] Venous blood specimen (specimen) 05/09/2008 9:17 PM ME[employer] SALES [employer] STORAGE MANAGER 05/10/2008 3:50 AM ME[employer] SALES [employer] STORAGE MANAGER us Riky Mejía MD POINT OF CARE TESTING Final Result Performing Organization Address [facility] Phone Number INTERFACE SYSTEM Refer to clinic/hospital department [facility] CLIA# [id number] [address] [place] [address] * POC GLUCOSE (05/09/2008 6:31 PM MEAT SALES [employer] STORAGE MANAGER) GLUCOSE POC 96 60 - 100 mg/dL [facility] Venous blood specimen (specimen) 05/09/2008 6:31 PM MEAT SALES [employer] STORAGE MANAGER 05/10/2008 3:50 AM MEAT SALES AND STORAGE MANAGER us Riky Mejía MD POINT OF CARE TESTING Final Result Performing Organization Address [facility] de Phone Number INTERFACE SYSTEM Refer to clinic/hospital department [facility] CLIA# [id number] [address] [place] [address] * (ABNORMAL) POC GLUCOSE (05/09/2008 12:20 PM ME[employer] SALES [employer] STORAGE MANAGER) GLUCOSE POC 123(H) 60 - 100 mg/dL [facility] Venous blood specimen (specimen) 05/09/2008 12:20 PM ME[employer] SALES [employer] STORAGE MANAGER 05/10/2008 3:50 AM MEAT SALES AND STORAGE MANAGER Riky Mejía MD POINT OF CARE TESTING Final Result Performing Organization Address [facility] de Phone Number INTERFACE SYSTEM Refer to clinic/hospital department [facility] CLIA# [id number] [address] [place] [address] * (ABNORMAL) POC GLUCOSE (05/09/2008 8:50 AM MEAT SALES [employer] STORAGE MANAGER) GLUCOSE POC 139(H) 60 - 100 mg/dL [facility] Venous blood specimen (specimen) 05/09/2008 8:50 AM MEAT SALES AND STORAGE MANAGER 05/10/2008 3:50 AM ME[employer] SALES [employer] STORAGE MANAGER Riky Mejía MD POINT OF CARE TESTING Final Result Performing Organization Address [facility] de Phone Number INTERFACE SYSTEM Refer to clinic/hospital department [facility] CLIA# [id number] [address] [place] [address] * (ABNORMAL) POC GLUCOSE (05/08/2008 8:06 PM CDT) GLUCOSE POC 115(H) 60 - 100 mg/dL [facility] COMMENT POC Recheck result [facility] Venous blood specimen (specimen) 05/08/2008 8:06 PM CDT 05/10/2008 7:16 AM ME[employer] SALES [employer]ORAGE MANAGER Riky Mejía MD POINT OF CARE TESTING Final Result Performing Organization Address [facility] de Phone Number INTERFACE SYSTEM Refer to clinic/hospital department [facility] CLIA# [id number] [address] [place] [address] * (ABNORMAL) POC GLUCOSE (05/08/2008 6:26 PM CDT) COMMENT POC Recheck result [facility] GLUCOSE POC 119(H) 60 - 100 mg/dL [facility] Venous blood specimen (specimen) 05/08/2008 6:26 PM CDT 05/10/2008 7:16 AM ME[employer] SALES [employer] STORAGE MANAGER Riky Mejía MD POINT OF CARE TESTING Final Result Performing Organization Address [facility] de Phone Number INTERFACE SYSTEM Refer to clinic/hospital department [facility] CLIA# [id number] [address] [place] [address] * (ABNORMAL) POC GLUCOSE (05/08/2008 12:27 PM CDT) [facility] GLUCOSE POC 130(H) 60 - 100 mg/dL [facility] Venous blood specimen (specimen) 05/08/2008 12:27 PM CDT 05/09/2008 1:13 AM CDT Riky Mejía MD POINT OF CARE TESTING Final Result Performing Organization Address [facility] Phone Number INTERFACE SYSTEM Refer to clinic/hospital department [facility] CLIA# [id number] [address] [place] [address] * (ABNORMAL) CBC WITH DIFFERENTIAL (05/08/2008 7:35 [...] clinic/hospital department [facility] CLIA# [id number] [facility] [place] [address] * (ABNORMAL) POC GLUCOSE (05/08/2008 5:15 AM CDT) GLUCOSE POC 132(H) 60 - 100 mg/dL [facility] Venous blood specimen (specimen) 05/08/2008 5:15 AM CDT 05/09/2008 1:13 AM CDT Riky Mejía MD POINT OF CARE TESTING Final Result Performing Organization Address City/[facility] de Phone Number INTERFACE SYSTEM Refer to clinic/hospital department [facility] CLIA# [id number] [address] [place] [address] * (ABNORMAL) POC GLUCOSE (05/07/2008 8:43 PM CDT) GLUCOSE POC 137(H) 60 - 100 mg/dL [facility] COMMENT POC Recheck result [facility] Venous blood specimen (specimen) 05/07/2008 8:43 PM CDT 05/10/2008 7:16 AM ME[employer] SALES [employer]ORAGE MANAGER Riky Mejía MD POINT OF CARE TESTING Final Result Performing Organization Address [facility] de Phone Number INTERFACE SYSTEM Refer to clinic/hospital department [facility] CLIA# [id number] [address] [place] [address] * (ABNORMAL) POC GLUCOSE (05/07/2008 5:13 PM CDT) GLUCOSE POC 137(H) 60 - 100 mg/dL [facility] COMMENT POC Recheck result [facility] Venous blood specimen (specimen) 05/07/2008 5:13 PM CDT 05/10/2008 7:16 AM ME[employer] SALES [employer] STORAGE MANAGER Riky Mejía MD POINT OF CARE TESTING Final Result Performing Organization Address City/[facility] de Phone Number INTERFACE SYSTEM Refer to clinic/hospital department [facility] CLIA# [id number] [address] [place] [address] * (ABNORMAL) POC GLUCOSE (05/07/2008 12:06 PM CDT) COMMENT POC Notify RN [facility] GLUCOSE POC 159(H) 60 - 100 mg/dL [facility] Venous blood specimen (specimen) 05/07/2008 12:06 PM CDT 05/08/2008 3:26 AM CDT Riky Mejía MD POINT OF CARE TESTING Final Result Performing Organization Address [facility] de Phone Number INTERFACE SYSTEM Refer to clinic/hospital department [facility] CLIA# [id number] [address] [place] [address] * (ABNORMAL) POC GLUCOSE (05/07/2008 8:20 AM CDT) GLUCOSE POC 135(H) 60 - 100 mg/dL [facility] COMMENT POC Notify R.N [facility] Venous blood specimen (specimen) 05/07/2008 8:20 AM CDT 05/08/2008 3:26 AM CDT Riky Mejía MD POINT OF CARE TESTING Final Result Performing Organization Address [facility] de Phone Number INTERFACE SYSTEM Refer to clinic/hospital department [facility] CLIA# [id number] [address] [place] [address] * (ABNORMAL) POC GLUCOSE (05/07/2008 5:22 AM CDT) GLUCOSE POC 133(H) 60 - 100 mg/dL [facility] Venous blood specimen (specimen) 05/07/2008 5:22 AM CDT 05/08/2008 3:25 AM CDT us Riky Mejía MD POINT OF CARE TESTING Final Result Performing Organization Address [facility] de Phone Number INTERFACE SYSTEM Refer to clinic/hospital department [facility] CLIA# [id number] [address] [place] [address] * (ABNORMAL) POC GLUCOSE (05/06/2008 8:39 PM CDT) GLUCOSE POC 116(H) 60 - 100 mg/dL [facility] COMMENT POC Notify R.N [facility] Venous blood specimen (specimen) 05/06/2008 8:39 PM CDT 05/07/2008 3:27 AM CDT us Riky Mejía MD POINT OF CARE TESTING Final Result INTERFACE SYSTEM Refer to clinic/hospital department [facility] CLIA# [id number] [address] [place] [address] * CT ABDOMEN PELVIS W CONTRAST (05/06/2008 [...] CARE TESTING Final Result Performing Organization Address [facility] de Phone Number INTERFACE SYSTEM Refer to clinic/hospital department [facility] CLIA# [id number] [address] [place] [address] * (ABNORMAL) POC GLUCOSE (05/06/2008 12:55 PM CDT) GLUCOSE POC 120(H) 60 - 100 mg/dL [facility] Venous blood specimen (specimen) 05/06/2008 12:55 PM CDT 05/07/2008 3:27 AM CDT Riky Mejía MD POINT OF CARE TESTING Final Result Performing Organization Address [facility] Phone Number INTERFACE SYSTEM Refer to clinic/hospital department [facility] CLIA# [id number] [address] [place] [address] * (ABNORMAL) POC GLUCOSE (05/06/2008 8:03 AM CDT) GLUCOSE POC 134(H) 60 - 100 mg/dL [facility] Venous blood specimen (specimen) 05/06/2008 8:03 AM CDT 05/07/2008 3:24 AM CDT Riky Mejía MD POINT OF CARE TESTING Final Result Performing Organization Address [facility] de Phone Number INTERFACE SYSTEM Refer to clinic/hospital [facility] CLIA# [id number] [address] [place] [address] * (ABNORMAL) BASIC METABOLIC PANEL (05/06/2008 5:34 [...] clinic/hospital department [facility] CLIA# [id number] [address] [place] [address] * (ABNORMAL) CBC WITH DIFFERENTIAL (05/06/2008 5:34 [...] ORDERABLES Final Result Performing Organization Address City/[facility] de Phone Number INTERFACE SYSTEM Refer to clinic/hospital department [facility] CLIA# [id number] [address] [place] [address] * (ABNORMAL) POC GLUCOSE (05/05/2008 8:26 PM CDT) GLUCOSE POC 157(H) 60 - 100 mg/dL [facility] Venous blood specimen (specimen) 05/05/2008 8:26 PM CDT 05/06/2008 3:31 AM CDT us Riky Mejía MD POINT OF CARE TESTING Final Result Performing Organization Address [facility] de Phone Number INTERFACE SYSTEM Refer to clinic/hospital department [facility] CLIA# [id number] [address] [place] [address] * (ABNORMAL) POC GLUCOSE (05/05/2008 4:57 PM CDT) GLUCOSE POC 124(H) 60 - 100 mg/dL [facility] Venous blood specimen (specimen) 05/05/2008 4:57 PM CDT 05/06/2008 3:31 AM CDT Riky Mejía MD POINT OF CARE TESTING Final Result Performing Organization Address [facility] de Phone Number INTERFACE SYSTEM Refer to clinic/hospital department [facility] CLIA# [id number] [address] [place] [address] * (ABNORMAL) POC GLUCOSE (05/05/2008 11:30 AM CDT) GLUCOSE POC 127(H) 60 - 100 mg/dL [facility] Venous blood specimen (specimen) 05/05/2008 11:30 AM CDT 05/06/2008 3:31 AM CDT Riky Mejía MD POINT OF CARE TESTING Final Result Performing Organization Address [facility] de Phone Number INTERFACE SYSTEM Refer to clinic/hospital department [facility] CLIA# [id number] [address] [place] [address] * (ABNORMAL) POC GLUCOSE (05/05/2008 8:05 AM CDT) GLUCOSE POC 137(H) 60 - 100 mg/dL [facility] Venous blood specimen (specimen) 05/05/2008 8:05 AM CDT 05/06/2008 3:31 AM CDT Riky Mejía MD POINT OF CARE TESTING Final Result Performing Organization Address [facility] de Phone Number INTERFACE SYSTEM Refer to clinic/hospital department [facility] CLIA# [id number] [address] [place] [address] * (ABNORMAL) POC GLUCOSE (05/04/2008 9:56 PM CDT) GLUCOSE POC 115(H) 60 - 100 mg/dL [facility] Venous blood specimen (specimen) 05/04/2008 9:56 PM CDT 05/05/2008 2:27 AM CDT Riky Mejía MD POINT OF CARE TESTING Final Result Performing Organization Address [facility] de Phone Number INTERFACE SYSTEM Refer to clinic/hospital department [facility] CLIA# [id number] [address] [place] [address] * (ABNORMAL) POC GLUCOSE (05/04/2008 5:34 PM CDT) GLUCOSE POC 120(H) 60 - 100 mg/dL [facility] Venous blood specimen (specimen) 05/04/2008 5:34 PM CDT 05/05/2008 5:02 AM CDT Riky Mejía MD POINT OF CARE TESTING Final Result Performing Organization Address [facility] de Phone Number INTERFACE SYSTEM Refer to clinic/hospital department [facility] CLIA# [id number] [address] [place] [address] * (ABNORMAL) POC GLUCOSE (05/04/2008 11:15 AM CDT) GLUCOSE POC 133(H) 60 - 100 mg/dL [facility] Venous blood specimen (specimen) 05/04/2008 11:15 AM CDT 05/05/2008 2:27 AM CDT Riky Mejía MD POINT OF CARE TESTING Final Result Performing Organization Address City/[facility] de Phone Number INTERFACE SYSTEM Refer to clinic/hospital department [facility] CLIA# [id number] [address] [place] [address] * URINE CULTURE (05/04/2008 9:06 AM CDT) FINAL REPORT No growth INTERFA CE SYSTEM 05/04/2008 9:06 AM CDT 05/04/2008 9:06 AM CDT us Riky Mejía MD MICROBIOLOGY - GENERAL ORDE [facility] Final Result Performing Organization Address [facility] Phone Number INTERFACE SYSTEM Refer to clinic/hospital department * (ABNORMAL) POC GLUCOSE (05/04/2008 7:37 AM CDT) GLUCOSE POC 139(H) 60 - 100 mg/dL [facility] Venous blood specimen (specimen) 05/04/2008 7:37 AM CDT 05/05/2008 2:27 AM CDT us Riky Mejía MD POINT OF CARE TESTING Final Result Performing Organization Address [facility] Phone Number INTERFACE SYSTEM Refer to clinic/hospital department [facility] CLIA# [id number] [address] [place], [place] [address] * (ABNORMAL) URINALYSIS MICROSCOPY ONLY (05/04/2008 2:12 AM CDT) HYALINE CAST None Seen 0 - 2 [facility] WBC URINE 0-2 0 - 2 [facility] BACTERIA UA Small(A) None Seen [facility] RBC UA 6-10(A) 0 - 2 [facility] Urine specimen (specimen) 05/04/2008 2:12 AM CDT 05/04/2008 2:12 AM CDT Narrative INTERFACE SYSTEM - 05/04/2008 2:30 AM CDT Microscopic ordered by policy us Riky Mejía MD URINE ORDERABLES Final Resu lt Performing Organization Address [facility] Phone Number INTERFACE SYSTEM Refer to clinic/hospital department [facility] CLIA# [id number] [address] [place] [address] * ICTOTEST (05/04/2008 2:12 AM CDT) Pathologist [facility] ICTO Negative Negative [facility] Urine specimen (specimen) 05/04/2008 2:12 AM CDT 05/04/2008 2:12 AM CDT Narrative INTERFACE SYSTEM - 05/04/2008 2:30 AM CDT Bili verified by ictotest us Riky Mejía MD URINE ORDERABLES Final Resu lt Performing Organization Address [facility] de Phone Number INTERFACE SYSTEM Refer to clinic/hospital department [facility] CLIA# [id number] [address] [place] [address] * (ABNORMAL) URINALYSIS (05/04/2008 2:12 AM CDT) Pathologist [facility] LEUKOCYTE ESTERASE UA NEGATIVE NEGATIVE [facility] KETONES UA Trace(A) NEGATIVE [facility] COLOR UA Yellow Straw [facility] PROTEIN UA 100 mg/dl(A) NEGATIVE [facility] SPECIFIC GRAVITY UA 1.010 <=1.005 [facility] NITRITE UA NEGATIVE NEGATIVE [facility] UROBILINOGEN UA 0.2 0.2 [facility] CLARITY UA Clear Clear [facility] GLUCOSE UA NEGATIVE NEGATIVE [facility] MICRO EXAM Yes(A) No [facility] PH UA 6.5 5.0 - 9.0 [facility] BLOOD UA MODERATE(A) NEGATIVE [facility] Urine specimen (specimen) 05/04/2008 2:12 AM CDT 05/04/2008 2:12 AM CDT us Riky Mejía MD URINE ORDERABLES Final Resu lt Performing Organization Address [facility] de Phone Number INTERFACE SYSTEM Refer to clinic/hospital department [facility] CLIA# [id number] [address] [place] [address] * BLOOD CULTURE (05/04/2008 2:02 AM CDT) Pathologist [facility] FINAL REPORT No growth INTERFA CE SYSTEM Blood specimen (specimen) 05/04/2008 2:02 AM CDT 05/04/2008 3:36 AM CDT us Riky Mejía MD MICROBIOLOGY - [facility]AL [facility] Final Result Performing Organization Address [facility] Phone Number INTERFACE SYSTEM Refer to [...] ORDERABLES Final Result Performing Organization Address [facility] de Phone Number INTERFACE SYSTEM Refer to clinic/hospital department [facility] CLIA# [id number] [address] [place] [address] * (ABNORMAL) CBC WITH DIFFERENTIAL (05/04/2008 1:55 [...] HEMATOLOGY ORDERABLES Final Result Performing Organization Address [facility] de Phone Number INTERFACE SYSTEM Refer to clinic/hospital department [facility] CLIA# [id number] [address] [place] [address] * BLOOD CULTURE (05/04/2008 1:55 AM CDT) FINAL REPORT No growth INTERFA CE SYSTEM REPORT/SPECIM EN COMMENT Specimen processed with suboptimal blood volume. Recommended adult blood volume is 8-10 mL per bottle. INTERFACE SYSTEM Blood specimen (specimen) 05/04/2008 1:55 AM CDT 05/04/2008 3:36 AM CDT us Riky Mejía MD MICROBIOLOGY - GENERAL ORDE [facility] Final Result Performing Organization Address [facility] Phone Number INTERFACE SYSTEM Refer to clinic/hospital department * (ABNORMAL) POC GLUCOSE (05/03/2008 9:24 PM CDT) GLUCOSE POC 137(H) 60 - 100 mg/dL [facility] Venous blood specimen (specimen) 05/03/2008 9:24 PM CDT 05/04/2008 4:27 AM CDT us Riky Mejía MD POINT OF CARE TESTING Final Result Performing Organization Address [facility] Phone Number INTERFACE SYSTEM Refer to clinic/hospital department [facility] CLIA# [id number] [facility] [place] [address] * (ABNORMAL) POC GLUCOSE (05/03/2008 4:35 PM CDT) GLUCOSE POC 128(H) 60 - 100 mg/dL [facility] Venous blood specimen (specimen) 05/03/2008 4:35 PM CDT 05/04/2008 4:27 AM CDT us Riky Mejía MD POINT OF CARE TESTING Final Result INTERFACE SYSTEM Refer to clinic/hospital department [facility] CLIA# [id number] [place] [address] * CT ABDOMEN PELVIS W CONTRAST (05/03/2008 [...] mm volumetric acquisition with 125 mL intravenous [id number]. Comparison: None. Findings: Consolidative atelectasis versus airspace [...] Goal INR 3.0; range 2.5 - 3.5 POST-TX Goal INR 2.5; range 2.0 - 3.0 or Goal 3.0; range 2.5 - 3.5 Atrial Fibrillation Goal INR 2.5; range 2.0 - 3.0 Ischemic Stroke Goal INR 2.5; range 2.0 - 3.0 For additional information see Guidelines for Anticoagulation available from the pharmacy [facility]. [phone] PTT 38.5(H) 22.5 - 36.5 Secs [facility] [...] clinic/hospital department [facility] CLIA# [id number] [address] [place] [address] * (ABNORMAL) BASIC METABOLIC PANEL (05/03/2008 5:39 [...] clinic/hospital department [facility] CLIA# [id number] [address] [place] [address] * (ABNORMAL) CBC WITH DIFFERENTIAL (05/03/2008 5:39 [...] ORDERABLES Final Result Performing Organization Address City/[facility]/ZIP Co de Phone Number INTERFACE SYSTEM Refer to clinic/hospital department [facility] CLIA# [id number] [address] [place] [address] * URINE CULTURE (05/02/2008 10:05 PM CDT) FINAL REPORT No growth INTERFA CE SYSTEM 05/02/2008 10:0 5 PM CDT 05/02/2008 10:05 PM CDT Riky Mejía MD MICROBIOLOGY - [facility] Final Result Performing Organization Address [facility] de Phone Number INTERFACE SYSTEM Refer to clinic/hospital department * (ABNORMAL) URINALYSIS MICROSCOPY ONLY (05/02/2008 9:19 PM CDT) BACTERIA UA Few(A) None Seen [facility] WBC URINE 3-5(A) 0 - 2 [facility] RBC UA 0-2 0 - 2 [facility] HYALINE CAST 0-2 0 - 2 [facility] Urine specimen (specimen) 05/02/2008 9:19 PM CDT 05/02/2008 9:19 PM CDT Narrative INTERFACE SYSTEM - 05/02/2008 9:43 PM CDT Microscopic ordered by policy Riky Mejía MD URINE ORDERABLES Final Resu lt Performing Organization Address [facility] de Phone Number INTERFACE SYSTEM Refer to clinic/hospital department [facility] CLIA# [id number] [address] [place] [address] * (ABNORMAL) ICTOTEST (05/02/2008 9:19 PM CDT) ICTO Positive(A) Negative [facility] Urine specimen (specimen) 05/02/2008 9:19 PM CDT 05/02/2008 9:19 PM CDT Narrative INTERFACE SYSTEM - 05/02/2008 9:43 PM CDT Bili verified by ictotest us Riky Mejía MD URINE ORDERABLES Final Resu lt Performing Organization Address [facility] Phone Number INTERFACE SYSTEM Refer to clinic/hospital department [facility] CLIA# [id number] [address] [place] [address] * (ABNORMAL) URINALYSIS (05/02/2008 9:19 PM CDT) CLARITY UA Clear Clear [facility] MICRO EXAM Yes(A) No [facility] GLUCOSE UA NEGATIVE NEGATIVE [facility] PH UA 5.5 5.0 - 9.0 [facility] BLOOD UA NEGATIVE NEGATIVE [facility] LEUKOCYTE ESTERASE UA NEGATIVE NEGATIVE [facility] KETONES UA Trace(A) NEGATIVE [facility] COLOR UA Yellow Straw [facility] PROTEIN UA 100 mg/dl(A) NEGATIVE [facility] SPECIFIC GRAVITY UA >=1.030(A) <=1.005 [facility] NITRITE UA POSITIVE(A) NEGATIVE [facility] UROBILINOGEN UA 0.2 0.2 [facility] Urine specimen (specimen) 05/02/2008 9:19 PM CDT 05/02/2008 9:19 PM CDT Riky Mejía MD URINE ORDERABLES Final Resu lt Performing Organization Address [facility] Phone Number INTERFACE SYSTEM Refer to clinic/hospital department [facility] CLIA# [id number] [address] [place] [address] * (ABNORMAL) BASIC METABOLIC PANEL (05/02/2008 6:50 [...] ORDERABLES Final Result Performing Organization Address [facility] de Phone Number INTERFACE SYSTEM Refer to clinic/hospital department [facility] CLIA# [id number] [address] [place] [address] * (ABNORMAL) BASIC METABOLIC PANEL (05/02/2008 8:38 [...] clinic/hospital department [facility] CLIA# [id number] [address] [place] [address] * (ABNORMAL) CBC WITH DIFFERENTIAL (05/02/2008 6:55 [...] clinic/hospital department [facility] CLIA# [id number] [address] [place] [address] documented in this encounter Visit Diagnoses Diagnosis [...] Debility, unspecified Pressure ulcer, stage II(707.22) ([facility]/HCC) Pressure ulcer, stage II Perforation of [...] upper back Pressure ulcer, stage III(707.23) ([facility]/HCC) Pressure ulcer, stage III Removal of other organ (partial) (total) causing abnormal patient reaction, or later complication, without mention of misadventure at time of operation documented in this encounter Additional Health Concerns Infection Onset Date Last Indicated Resolved Time MRSA Comment:Kapil 10/26/15 10/27/2015 10/27/2015 documented as of this encounter Care Teams Music Librarian Relationship Specialty Start Date End Date Jose Bowers MD [address] [place] [address] PCP - General 12/31/05 documented as of this encounter
--- OUTSIDE RECORDS SUMMARY | 2025-05-12 12:19 | XMS_ITS | Encounter Summary ---
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 [facility] has changed the methodology for TSH, and with this change the reference range has changed from 0.49-4.67 to 0.35-5.5 uIU/ml. 11/27/2005 6:09 AM CDT Jose Bowers MD CHEMISTRY ORDERABLES Final Resul t Performing Organization Address [facility] Phone Number INTERFACE SYSTEM Refer to [...] Goal INR 3.0; range 2.5 - 3.5 POST-CA Goal INR 2.5; range 2.0 - 3.0 or Goal 3.0; range 2.5 - 3.5 Atrial Fibrillation Goal INR 2.5; range 2.0 - 3.0 Ischemic Stroke Goal INR 2.5; range 2.0 - 3.0 For additional information see Guidelines for Anticoagulation available from the pharmacy [facility] 11/27/2005 6:09 AM CDT Jose Bowers MD HEMATOLOGY ORDERABLES Final Resu lt Performing Organization Address City/[facility] Co de Phone Number INTERFACE SYSTEM Refer to clinic/hospital department * (ABNORMAL) C-REACTIVE PROTEIN (11/27/2005 6:09 AM CDT) CRP 1.19(H) 0.00 - 1.00 mg/dL INTERFACE SYSTEM 11/27/2005 6:09 AM CDT Jose Bowers MD CHEMISTRY ORDERABLES Final Resul t Performing Organization Address City/[facility] Co de Phone Number INTERFACE SYSTEM [...] INTERFACE SYSTEM Comment: As of 05 the [facility] has changed testing methods. The new reference range is 25-100 The old referance range was 38-126 AST 26 8 - 33 U/L INTERFACE SYSTEM Comment: As of 05 the [facility] has changed testing methods. The new reference range is 8-33 The old referance range was Males 17-59 Females 14-36 ALT 27 4 - 36 IU/L INTERFACE SYSTEM Comment: As of 05 the [facility] has changed testing methods. The new reference range is 4-36 The old referance range was Males 21-72 Females 9-52 BILIRUBIN TOTAL 0.2(L) 0.3 - 1.2 mg/dL INTERFACE SYSTEM Comment: As of 05 the [facility] has changed testing methods. The new reference range is 0.3-1.2 The old referance range was 0.2-1.4 11/27/2005 6:09 AM CDT Jose Bowers MD CHEMISTRY ORDERABLES Final Resul t Performing Organization Address [facility] Phone Number INTERFACE SYSTEM Refer to clinic/hospital department * (ABNORMAL) SEDIMENTATION RATE (11/27/2005 6:09 AM CDT) ESR (SEDIMENTATION RATE) 25(H) 0 - 22 mm/hr INTERFACE SYSTEM 11/27/2005 6:09 AM CDT Jose Bowers MD HEMATOLOGY ORDERABLES Final Resu lt Performing Organization Address [facility] Phone Number INTERFACE SYSTEM Refer to [...] ORDERABLES Final Resu lt Performing Organization Address [facility] de Phone Number INTERFACE SYSTEM [...] URINE ORDERABLES Final Result Performing Organization Address [facility] de Phone Number INTERFACE SYSTEM [...] URINE ORDERABLES Final Result Performing Organization Address City/State/[facility] Co de Phone Number INTERFACE SYSTEM [...] off-axis. IMPRESSION: Limited study. Nonspecific findings present. [facility] D: [id number] Dictated By: Marcus Eng M.D. [...] documented as of this encounter Care Teams Sewer Connector Relationship Specialty Start Date End Date Jose Bowers MD [address] [place] [id number] PCP - General 12/31/05 documented as of this encounter
--- OUTSIDE RECORDS SUMMARY | 2025-05-12 12:20 | XMS_ITS | Encounter Summary ---
Author Organization [employer] Address [address] [place] [address] Care Team Providers Care Tea Taster Name Role Phone Jose Bowers MD Primary Care Provider Unavailab le Encounter Details Date Type Department Care Team (Late st Contact Info) Description 05/04/2025 External Device Data [place] ABSTRACTION Provider, Abstract NO ADDRESS ON FILE Social History Tobacco [...] worry about transportation for future doctor visits, shrimp picker medication, etc.? 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 Source: [facility]. 02/25/2025 documented as of this encounter Care Teams Tea Taster Relationship Specialty Start Date End Date Jose Bowers MD [address] [place] [address] PCP - General 12/31/05 documented as of this encounter
--- OUTSIDE RECORDS SUMMARY | 2025-05-12 12:20 | XMS_ITS | Encounter Summary ---
Author Organization [facility] Address [address] [place] [address] Care Team Providers Care Underwriting Analyst Name Role Phone Jose Bowers MD Primary Care Provider Unavailab le Encounter Details Date Type Department Care Team (Late st Contact Info) Description 12/31/2006 Outpatient Historical [facility] Physical Med and Rehab- [place] [address] [place] [phone] Jose Bowers MD [address] [place] [address] Paraplegia (CMS/HCC) (Primary Dx) Social History Tobacco Use Types Packs/Day Years Used Date Smoking Tobacco: Never Assessed Comments Unknown Sex and Gender Information Value Date Recorded Sex Assigned at Not on file 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
--- OUTSIDE RECORDS SUMMARY | 2025-05-12 12:20 | XMS_ITS | Encounter Summary ---
Author Organization [facility] Address [address] [place] [address] Care Team Providers Care Hearing And Speech Assistant Name Role Phone Jose Bowers MD Primary Care Provider Unavailab le Encounter Details Date Type Department Care Team (Late st Contact Info) Description 08/30/2006 Outpatient Historical [facility] Physical Med and Rehab- [place] [id number] [place] [phone] Jose Bowers MD [address] [place] [address] Pain in Joint, Pelvic Region and Thigh (Primary Dx); Pain in Limb; Paraplegia (CMS/HCC) Social History Tobacco Use Types Packs/Day Years Used Date Smoking Tobacco: Never Assessed Comments Unknown Sex and Gender Information Value Date Recorded Sex Assigned at Not on file Legal Sex Female 6:28 AM TOUCHER UP Gender Identity Not on file Sexual Orientation Not on file documented as of this encounter Plan of Treatment Not on file documented as of this encounter Procedures Procedure Name Priority Date/Time Associated Diagnosis Comments XR PELVIS 3+ VW Routine 08/30/2006 12:33 PM TOUCHER UP documented in this encounter Results * XR PELVIS 3+ VW (08/30/2006 12:33 PM TOUCHER UP) Anatomical Region Laterality Modality Pelvis Other 08/30/2006 12:3 3 PM TOUCHER UP Narrative 08/30/2006 12:33 PM TOUCHER UP PELVIS AND RIGHT HIP: TECHNIQUE: Two views [...] as of this encounter Care Teams Hearing And Speech Assistant Relationship Specialty Start Date End Date Jose Bowers MD [address] [place] [address] PCP - General 12/31/05 documented as of this encounter
--- OUTSIDE RECORDS SUMMARY | 2025-05-12 12:20 | XMS_ITS | Encounter Summary ---
Author Organization [facility] Address [address] [place] [address] Care Team Providers Care Lemon Picker Name Role Phone Jose Bowers MD Primary Care Provider Unavailab le Encounter Details Date Type Department Care Team (Late st Contact Info) Description 07/10/2007 Outpatient [facility] Physical Med and Rehab- [place] [address] [place] [address] Ramana Juarez MD [address] [place] [address] Social History Tobacco Use Types Packs/Day Years Used Date Smoking Tobacco: Never Assessed Comments Unknown Sex and Gender Information Value Date Recorded Sex Assigned at Not on file 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
--- OUTSIDE RECORDS SUMMARY | 2025-05-12 12:20 | XMS_ITS | Encounter Summary ---
Author Organization [facility] Address [address] [place] [address] Care Team Providers Care Surveillance Officer Name Role Phone Jose Bowers MD Primary Care Provider Unavail le Encounter Details Date Type Department Care Team (Late st Contact Info) Description 12/31/2006 Outpatient Historical [facility] OUTPATIENT Jose Bowers MD [address] [place] [address] Pain in Soft Tissues of Limb (Primary Dx) Social History Tobacco Use Types Packs/Day Years Used Date Smoking Tobacco: Never Assessed Comments Unknown Sex and Gender Information Value Date Recorded Sex Assigned at Not on file Legal Sex Female 6:28 AM TABLE SETTER Gender Identity Not on file Sexual Orientation [...] documented as of this encounter Care Teams Surveillance Officer Relationship Specialty Start Date End Date Jose Bowers MD [address] [place] [address] PCP - General 12/31/05 documented as of this encounter
--- OUTSIDE RECORDS SUMMARY | 2025-05-12 12:20 | XMS_ITS | Encounter Summary ---
Author Organization [facility] Address [address] [place] [address] Care Team Providers Care Packaging Specialist Name Role Phone Jose Bowers MD Primary Care Provider Unavailab le Encounter Details Date Type Department Care Team (Late st Contact Info) Description 10/02/2006 Outpatient Historical [facility] Physical Med and Rehab- [place] [address] [place] [phone] Jose Bowers MD [address] [place] [address] Paraplegia (CMS/HCC) (Primary Dx) Social History Tobacco Use Types Packs/Day Years Used Date Smoking Tobacco: Never Assessed Comments Unknown Sex and Gender Information Value Date Recorded Sex Assigned at Not on file Legal Sex Female 6:28 AM [employer]INE [employer]SP[employer] Gender Identity Not on file Sexual Orientation Not on file documented as of this encounter Plan of Treatment Not on file documented as of this encounter Visit Diagnoses Diagnosis Paraplegia (CMS/HCC)- Primary Paraplegia documented in this encounter Additional Health Concerns Infection Onset Date Last Indicated Resolved Time MRSA Comment:Kapil 10/26/15 10/27/2015 10/27/2015 documented as of this encounter Care Teams Packaging Specialist Relationship Specialty Start Date End Date Jose Bowers MD [address] [place] [address] PCP - General 12/31/05 documented as of this encounter
--- OUTSIDE RECORDS SUMMARY | 2025-05-12 12:20 | XMS_ITS | Encounter Summary ---
Author Organization [employer] Address [address] [place] [address] Care Team Providers Care Resource Forester Name Role Phone Jose Bowers MD Primary Care Provider Unavailab le Encounter Details Date Type Department Care Team (Late st Contact Info) Description 05/05/2025 External Device Data STL ABSTRACTION Provider, [...] worry about transportation for future doctor visits, steel pickler medication, etc.? 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 Source: [facility]icians. 02/25/2025 documented as of this encounter Care Teams Resource Forester Relationship Specialty Start Date End Date Jose Bowers MD [address] [place] [address] PCP - General 12/31/05 documented as of this encounter
--- NOTE | 2025-05-12 13:26 | XR_ITS ---
WS: [id number] Portable AP upright chest, 05/12/2025 Clinical Data: fatigue Comparison: Portable chest, 04/29/2025 Findings: No nodules, masses or effusions are seen. The heart is normal. The pulmonary vascularity is not increased. No pneumonia or pneumothorax is seen. The right internal jugular venous catheter remains in the same position. The aortic arch shows mild calcification and tortuosity. XR/XR chest 1V portable [id number] Impression: Atherosclerosis.
--- NOTE | 2025-05-12 13:32 | W.ED.ABDPA2 ---
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 She was sent by her primary care provider who had labs drawn on Saturday showing elevated creatinine of 5.5. Of note this patient was recently hospitalized on 04/29 for hyperkalemia, hyponatremia, and acute on chronic renal failure and subsequently was transferred to [facility] due to her reports of abdominal pain and possible bowel obstruction. Family states that while at [facility] she had no instrumentation done as her abdominal pain resolved spontaneously and she was awaiting a transfer to [facility] but due to the resolution of the patient eventually was discharged home. This was 6 days ago, she had a follow-up on Saturday where she had the labs drawn, today went to reevaluation appointment where was noted that her creatinine was significantly elevated. Family in the room, who is primary historian, states that the patient has been increasingly lethargic and nauseous, no vomiting or fevers. They have noticed decreased output into the leg bag from her suprapubic catheter. She has a history of fistula and ostomy to the left abdomen, and also has chronic sacral osteomyelitis. Family states that they changed these bandages earlier today and there were no acute abnormalities as these are chronic. However they do note that the patient was stopped on her ciprofloxacin at her previous hospitalization in [place]. At this time patient is mildly tachycardic and blood pressure is soft, and she is notably lethargic. However she is alert and oriented x 4, does not provide any history due to her fatigue thus limiting review of systems. Only thing patient tells me is that she is having low back pain. MD elicited complaint: other (Abnormal labs, low back pain, nausea, recent hospitalization) Related Data Home Medications ?Medication ?Instructions ?Recorded ?Confirmed gabapentin 600 mg tablet 600 mg PO BEDTIME 04/12/20 05/12/25 venlafaxine 150 mg 150 mg PO BEDTIME 04/12/20 05/12/25 capsule,extended release 24 hr trazodone 50 mg tablet 25 mg PO BEDTIME 09/24/23 05/12/25 diphenoxylate-atropine 2.5 2 tab PO QID PRN Diarrhea 02/04/25 05/12/25 mg-0.025 mg tablet loperamide 2 mg capsule 4 mg PO QID PRN Diarrhea 02/04/25 05/12/25 ondansetron 8 mg disintegrating 8 mg PO TID PRN Nausea And Vomiting 02/23/25 05/12/25 tablet pantoprazole 40 mg tablet,delayed 40 mg PO BID 03/04/25 05/12/25 release Previous Rx's ?Medication ?Instructions ?Recorded prothrombin time/INR test metr #30 ea 08/24/24 hydrocodone 7.5 mg-acetaminophen 1 tab PO Q8H PRN pain #20 tabs 04/22/25 325 mg tablet Allergies Allergy/AdvReac Type Severity Reaction Status Date / Time levofloxacin (From Levaquin) Allergy Unknown Unknown Verified 02/22/25 13:52 azithromycin Allergy Unknown Verified 02/22/25 13:52 Penicillins Allergy Unknown Verified 02/22/25 13:52 tramadol (From Ultram) Allergy Unknown Verified 02/22/25 13:52 vancomycin Allergy Unknown Verified 02/22/25 13:52 amoxicillin AdvReac Unknown ADR-Seizure Verified 02/22/25 13:52 Review of Systems General: Reports: ROS unobtainable due to medical condition [facility] ED PFSH: Medical History Shock Groin hematoma BMI 50.0-59.9, adult Chronic anticoagulation History of angiography 2015 abdominal angiography and lower extremity angiography - normal abdominal aorta, pelvic vessels normal, all lower extremity vessels unremarkable, 3 vessel runoff below both knees History of cardiovascular stress test 07/2024 abnormalities on myocardial perfusion scanning History of sleep study 05/2017 - cpap auto-titrating 15-19 Wound of sacral region goes to wound care clinic Abscess of sacrum Parastomal hernia Ventral incisional hernia GERD (gastroesophageal reflux disease) Depression Fracture of fifth toe, right, closed History of sleep apnea sleep study in 2017 recommended auto-titrating cpap 15-[address] Complications of surgery for ovarian cyst around 2004 resulting in bowel injury Chronic venous insufficiency of lower extremity PVD (peripheral vascular disease) History of DVT (deep vein thrombosis) (2004) and pulmonary embolism 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 Chronic osteomyelitis Neurogenic bladder Chronic cystitis Surgical History History of carpal tunnel release History of abdominal surgery (2007) excision of pelvic cysts complicated by bowel perforation, had multiple procedures including colostomy History of inferior vena caval filter placement (2004) still in place in 08/2024 History of incision and drainage (04/2019) sacral wound History of back surgery (2004) for spinal abscess x 2 History of hysterectomy (2003) S/P cholecystectomy S/P section Suprapubic catheter (~2004) following urology in [place] Family History Family/Other Diabetes Cancer CAD (coronary artery disease) Mother , at age 74 Sepsis Cancer melanoma Diabetes Father Heart disease Other Dementia Diabetes mellitus type 1 Hypertension Stroke Social History Smoking and tobacco/nicotine status: never used tobacco/nicotine Alcohol intake: never Substance/Drug Use: never Additional social history: daughter performs dressing changes twice per day, she and other family provide assistance as needed, wheelchair dependent, able to use transfer board Caregiver/support person: Yes Lives independently: Yes Marital status: Current occupational status: disabled Physical Exam Const: COMMON NORMALS: patient oriented x3 GENERAL APPEARANCE: lethargic and ill appearing NUTRITIONAL APPEARANCE: obese morbidly obese ORIENTATION/CONSCIOUSNESS: Yes lethargic HENMT: COMMON NORMALS: normocephalic and atraumatic HEAD & SCALP: normocephalic and atraumatic Eye: COMMON NORMALS: EOMs intact bilaterally and conjunctivae normal CONJUNCTIVA: Yes conjunctivae normal Neck/C-Spine: COMMON NORMALS: full ROM and no JVD Resp: COMMON NORMALS: normal respiratory effort, No retractions, No use of accessory muscles and clear to auscultation bilaterally AUSCULTATION: clear to auscultation bilaterally OTHER: No respiratory distress, body habitus limits pulmonary auscultation but no adventitious lung sounds heard at this time Cardio: COMMON NORMALS: no JVD, regular rhythm, No gallops present (Cardio), No clicks present (Cardio), No murmurs present (Cardio) and No rub (Cardio) RATE: tachycardic RHYTHM: regular rhythm GI: OTHER: No significant reproducible abdominal tenderness to palpation. To left lower quadrant there is ileostomy bag containing stool. There is suprapubic indwelling catheter noted with some mild erythema surrounding and appears to be possible purulent drainage. Leg bag noted to have small amount of brown urine. Large obese abdomen. No peritoneal signs. Back/Pelvis: OTHER: Unable to visualize patient's low back at this time for examination, nor to examine sacral region for her chronic ulcer/osteomyelitis. Extremity: NARRATIVE EXTREMITY EXAM: Peripheral edema bilaterally, nonpitting. Neuro: COMMON NORMALS: patient oriented x3, moves all extremities, no focal motor deficits and no sensory deficits noted SENSORIUM/ORIENTATION: Yes lethargic OTHER: No focal neurological deficit Course Vital Signs: Vital signs: Vital Signs Temperature 98.5 F 05/12/25 12:27 Pulse Rate 100 05/12/25 20:06 Respiratory Rate 18 05/12/25 12:27 Blood Pressure 93/67 05/12/25 20:06 Pulse Oximetry 93 05/12/25 20:06 Oxygen Delivery Me thod Room Air 05/12/25 20:06 MDM - Abdominal Pain Medical Decision Making 55-year-old female presents the emergency department referred from primary care's office due to abnormal labs, reportedly creatinine was 5.6. Refer to [facility] for full history, though patient was recently hospitalized both here and at [facility] in [place], discharged a week ago. At [place] she was reportedly awaiting a transfer to [facility] [place] for possible bowel obstruction, however with her pain spontaneously resolving she was ultimately discharged home. She has extensive past medical history. Morbid obese female on exam, suprapubic catheter present with some surrounding erythema and purulence to the site. Left lower quadrant ostomy bag with brown stool. Her leg bag containing small amount of brown urine. Overall patient was lethargic, though alert and oriented x 4 she was slow to respond and overall ill-appearing. Tachycardic and soft blood pressure at initial presentation. IV established. Initial ABG within normal limits without evidence of significant acid-base disturbance. Chest x-ray demonstrating atherosclerotic changes with no acute process?no infiltrate, effusion, pneumothorax, or pulmonary edema. Findings do not explain current symptoms of hypotension, RANI, or altered mentation. Laboratory studies notable for leukocytosis, marked RANI, electrolyte abnormalities, elevated lactate, and high ESR/CRP raising concern for underlying infection or ischemia. CT abdomen and pelvis demonstrates high-grade small bowel obstruction without obstructive uropathy. IV fluids, NG decompression, and broad-spectrum antibiotics initiated. I consulted Dr. Flores, general surgery, feeling that the patient is not a surgical candidate given the extensive comorbidities and poor expected outcome. I relayed this to patient and family in the room, they had reported to me that [facility] was still an option for them and they would like transferred there for a second opinion. I spoke to general surgery at [facility], who state that again this patient is a very poor surgical candidate and that they would not do anything past NG tube and TPN. I spoke to the family in regards to this, and Dr. Flores kindly agrees to consult the family and informed them personally of the implications of why she is not a surgical candidate and the likely poor outcomes. Overall poor prognosis, family is informed of this and after extensive goals of care discussion with family, electing for comfort focused treatment and patient will be admitted for comfort care measures. Dr. Ibanez is the accepting hospitalist, Dr. Funez here in the emergency department is briefed on this patient and personally sees them and agrees with the disposition. Lab Data 05/12/25 14:10 05/12/25 14:10 Labs/Radiology: Radiology Impressions Chest X-Ray 05/12/25 13:26 Impression: Atherosclerosis. Abdomen/Pelvis CT 05/12/25 14:44 IMPRESSION: 1. High-grade small bowel obstruction within a left parastomal hernia. Exact transition point is difficult to define given the conglomeration of bowel loops. Again the distal ileum to the terminal ileum is extremely decompressed. 2. Nonobstructing right nephrolithiasis. 3. 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 COMMENT: THIS REPORT CONTAINS FINDINGS THAT MAY BE CRITICAL TO PATIENT CARE. The exam findings were verbally communicated by me to SUJATHA KANG via telephone conference at 4:04 PM TEAMCENTER SOLUTION ARCHITECT on 05/12/2025. The findings were acknowledged and understood. COMMENTS: For patients with an IVC filter, recommend assessment for a management plan for the patient's IVC filter. If there is no established management plan, recommend referral to an interventional clinician on a nonemergent basis for evaluation. Abdomen X-Ray 05/12/25 18:11 IMPRESSION: Nasogastric tube in the stomach IVC filter in position Post cholecystectomy status. COMMENTS: For patients with an IVC filter, recommend assessment for a management plan for the patient's IVC filter. If there is no established management plan, recommend referral to an interventional clinician on a nonemergent basis for evaluation. Laboratory Results WBC 19.32 10^3/uL (3.29-11.43) H 05/12/25 14:10 RBC 4.14 10^6/uL (3.85-5.65) 05/12/25 14:10 Hgb 12.00 g/dL (11.27-16.99) 05/12/25 14:10 Hct 37.3 % (36-47) 05/12/25 14:10 MCV 90.1 fl (85-98) 05/12/25 14:10 MCH 29.0 pg (27-33) 05/12/25 14:10 MCHC 32.2 g/dL (30-55) 05/12/25 14:10 RDW 13.9 % (12.1-15.1) 05/12/25 14:10 Plt Count 592 10^3/cmm (157-399) H 05/12/25 14:10 MPV 10.5 fL (7.4-10.4) H 05/12/25 14:10 Neut % (Auto) 85.1 % 05/12/25 14:10 Lymph % (Auto) 6.0 % 05/12/25 14:10 [place] % (Auto) 7.5 % 05/12/25 14:10 Eos % (Auto) 0.2 % 05/12/25 14:10 Baso % (Auto) 0.3 % 05/12/25 14:10 Neut # (Auto) 16.46 10^3/uL (1.8-7.7) H 05/12/25 14:10 Lymph # (Auto) 1.2 10^3/uL (0.8-4.8) 05/12/25 14:10 [place] # (Auto) 1.5 10^3/uL (0.2-0.9) H 05/12/25 14:10 Eos # (Auto) 0.0 10^3/uL (0.0-0.8) 05/12/25 14:10 Baso # (Auto) 0.1 10^3/uL (0.0-0.1) 05/12/25 14:10 Nucleated RBC % (auto) 0 % 05/12/25 14:10 Nucleated RBCs # 0.0 /100WBC 05/12/25 14:10 ESR 91 mm/hr (0-15) H 05/12/25 14:10 Specimen Type Arterial 05/12/25 13:36 Sample Site Brachial, left 05/12/25 13:36 ABG pH 7.44 (7.35-7.45) 05/12/25 13:36 ABG pCO2 35.5 mmHg (35-45) 05/12/25 13:36 ABG pO2 91.3 mmHg (80.0-100.0) 05/12/25 13:36 ABG PO2/FiO2 Ratio 434 05/12/25 13:36 ABG HCO3 24.2 mmol/L (22-26) 05/12/25 13:36 ABG O2 Saturation 97.5 05/12/25 13:36 ABG Base Excess 0.3 mmol/L (-2.0-2.0) 05/12/25 13:36 Juan Test Pos 05/12/25 13:36 A-a O2 Gradient 1.8 mmHg (5-10) L 05/12/25 13:36 Hematocrit 35.5 % (37-47) L 05/12/25 13:36 Hgb O2 Saturation 95.9 % (95-100) 05/12/25 13:36 Carboxyhemoglobin 0.9 %THgb (0.4-20.1) 05/12/25 13:36 Methemoglobin 0.6 % (0.4-1.5) 05/12/25 13:36 Total Hemoglobin 11.6 g/dL (12-16) L 05/12/25 13:36 Sodium 127.0 mmol/L (131-143) L 05/12/25 13:36 Potassium 5.4 mmol/L (3.5-5.0) H 05/12/25 13:36 Glucose 153.0 mg/dL (70-115) H 05/12/25 13:36 Ionized Calcium 1.1 mmol/L (1.1-1.4) 05/12/25 13:36 O2 Delivery Device Room air 05/12/25 13:36 FiO2 21.0 % 05/12/25 13:36 Mobile Home Technician ID [employer] 05/12/25 13:36 Sodium 126 mmol/L (136-145) L 05/12/25 14:10 Potassium 5.4 mmol/L (3.5-5.1) H 05/12/25 14:10 Chloride 85 mmol/L (98-107) L 05/12/25 14:10 Carbon Dioxide 20 mmol/L (22-29) L 05/12/25 14:10 Anion Gap 26.4 (5-19) H 05/12/25 14:10 BUN 100 mg/dL (6-20) H* 05/12/25 14:10 Creatinine 4.0 mg/dL (0.5-0.9) H 05/12/25 14:10 GFR Calculation 11.5 mL/min (90-130) L 05/12/25 14:10 Glucose 135 mg/dL (65-115) H 05/12/25 14:10 Calculated Osmolality 295 mOsm/kg (285-295) 05/12/25 14:10 Lactic Acid 2.6 mmol/L (0.5-2.2) H 05/12/25 14:10 Calcium 9.2 mg/dL (8.5-10.5) 05/12/25 14:10 Phosphorus 7.1 mg/dL (2.5-4.5) H 05/12/25 14:10 Magnesium 2.0 mg/dL (1.7-2.3) 05/12/25 14:10 Total Bilirubin 0.2 mg/dL (0.15-1.2) 05/12/25 14:10 AST 26 U/L (0-32) 05/12/25 14:10 ALT 27 U/L (0-33) 05/12/25 14:10 Alkaline Phosphatase 159 U/L (35-105) H 05/12/25 14:10 C-Reactive Protein 67.6 mg/L (0.0-4.9) H 05/12/25 14:10 NT-Pro-B Natriuret Pep 278 pg/mL (0-125) H 05/12/25 14:10 Total Protein 8.8 g/dL (6.6-8.7) H 05/12/25 14:10 Albumin 3.3 g/dL (3.5-5.2) L 05/12/25 14:10 Globulin 5.5 g/dL (1.3-4.6) H 05/12/25 14:10 Urine Color Yellow (Yellow) 05/12/25 14:55 Urine Appearance Cloudy (CLEAR) A 05/12/25 14:55 Urine pH 5.0 (5-7) 05/12/25 14:55 Ur Specific [employer] 1.017 (1.005-1.030) 05/12/25 14:55 Urine Protein 1+ (Negative) A 05/12/25 14:55 Urine Glucose (UA) Negative (Normal) 05/12/25 14:55 Urine Ketones Trace (Negative) 05/12/25 14:55 Urine Blood 2+ (Negative) A 05/12/25 14:55 Urine Nitrate Negative (Negative) 05/12/25 14:55 Urine Bilirubin Negative (Negative) 05/12/25 14:55 Urine Urobilinogen 0.2 mg/dL (Negative) 05/12/25 14:55 Ur Leukocyte Esterase 2+ (Negative) A 05/12/25 14:55 Urine RBC >100 /hpf (0-2) H 05/12/25 14:55 Urine WBC 51-100 /hpf (0-5) H 05/12/25 14:55 Ur Squamous Epith Cells 0-5 /hpf (0-5) 05/12/25 14:55 Amorphous Sediment Not Reportable 05/12/25 14:55 Urine Bacteria Trace /hpf (NONE) 05/12/25 14:55 Hyaline Casts 23.98 /lpf 05/12/25 14:55 Urine Yeast 3+ /hpf H 05/12/25 14:55 All radiology interpretation(s) finalized by discharge Discharge Plan Discharge Patient Disposition: Admitted As Inpatient Clinical Impression: SBO (small bowel obstruction), RANI (acute kidney injury) Sepsis Qualifiers: Sepsis type: sepsis due to unspecified organism Sepsis acute organ dysfunction status: unspecified Qualified Code(s): A41.9 - Sepsis, unspecified organism Condition: Stable Coding Level of Care Code 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 [employer] Fwd Documented by User: Whitley Funez MD 05/12/25 20:30 HPI - Abdominal Pain General: Chief Complaint: Abdominal Pain Stated Complaint: low back pain (sent by mu) Time Seen by Provider: 05/12/25 13:12 Related Data Home Medications ?Medication ?Instructions ?Recorded ?Confirmed gabapentin 600 mg tablet 600 mg PO BEDTIME 04/12/20 05/12/25 venlafaxine 150 mg 150 mg PO BEDTIME 04/12/20 05/12/25 capsule,extended release 24 hr trazodone 50 mg tablet 25 mg PO BEDTIME 09/24/23 05/12/25 diphenoxylate-atropine 2.5 2 tab PO QID PRN Diarrhea 02/04/25 05/12/25 mg-0.025 mg tablet loperamide 2 mg capsule 4 mg PO QID PRN Diarrhea 02/04/25 05/12/25 ondansetron 8 mg disintegrating 8 mg PO TID PRN Nausea And Vomiting 02/23/25 05/12/25 tablet pantoprazole 40 mg tablet,delayed 40 mg PO BID 03/04/25 05/12/25 release Previous Rx's ?Medication ?Instructions ?Recorded prothrombin time/INR test metr #30 ea 08/24/24 hydrocodone 7.5 mg-acetaminophen 1 tab PO Q8H PRN pain #20 tabs 04/22/25 325 mg tablet Allergies Allergy/AdvReac Type Severity Reaction Status Date / Time levofloxacin (From Levaquin) Allergy Unknown Unknown Verified 02/22/25 13:52 azithromycin Allergy Unknown Verified 02/22/25 13:52 Penicillins Allergy Unknown Verified 02/22/25 13:52 tramadol (From Ultram) Allergy Unknown Verified 02/22/25 13:52 vancomycin Allergy Unknown Verified 02/22/25 13:52 amoxicillin AdvReac Unknown ADR-Seizure Verified 02/22/25 13:52 PFSH ED [facility]: Medical History Shock Groin hematoma BMI 50.0-59.9, adult Chronic anticoagulation History of angiography 2015 abdominal angiography and lower extremity angiography - normal abdominal aorta, pelvic vessels normal, all lower extremity vessels unremarkable, 3 vessel runoff below both knees History of cardiovascular stress test 07/2024 abnormalities on myocardial perfusion scanning History of sleep study 05/2017 - cpap auto-titrating 15-19 Wound of sacral region goes to wound care clinic Abscess of sacrum Parastomal hernia Ventral incisional hernia GERD (gastroesophageal reflux disease) Depression Fracture of fifth toe, right, closed History of sleep apnea sleep study in 2016 recommended auto-titrating cpap 15-[address] Complications of surgery for ovarian cyst around 2004 resulting in bowel injury Chronic venous insufficiency of lower extremity PVD (peripheral vascular disease) History of DVT (deep vein thrombosis) (2004) and pulmonary embolism 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 Chronic osteomyelitis Neurogenic bladder Chronic cystitis Surgical History History of carpal tunnel release History of abdominal surgery (2007) excision of pelvic cysts complicated by bowel perforation, had multiple procedures including colostomy History of inferior vena caval filter placement (2004) still in place in 08/2024 History of incision and drainage (04/2019) sacral wound History of back surgery (2004) for spinal abscess x 2 History of hysterectomy (2003) S/P cholecystectomy S/P section Suprapubic catheter (~2004) following urology in [place] Family History Family/Other Diabetes Cancer CAD (coronary artery disease) Mother , at age 74 Sepsis Cancer melanoma Diabetes Father Heart disease Other Dementia Diabetes mellitus type 1 Hypertension Stroke Social History Smoking and tobacco/nicotine status: never used tobacco/nicotine Alcohol intake: never Substance/Drug Use: never Additional social history: daughter performs dressing changes twice per day, she and other family provide assistance as needed, wheelchair dependent, able to use transfer board Caregiver/support person: Yes Lives independently: Yes Marital status: Current occupational status: disabled Course Vital Signs: Vital signs: Vital Signs Temperature 98.5 F 05/12/25 12:27 Pulse Rate 100 05/12/25 20:06 Respiratory Rate 18 05/12/25 12:27 Blood Pressure 93/67 05/12/25 20:06 Pulse Oximetry 93 05/12/25 20:06 Oxygen Delivery Me thod Room Air 05/12/25 20:06 MDM - Abdominal Pain Medical Decision Making 55-year-old female presents the emergency department referred from primary care's office due to abnormal labs, reportedly creatinine was 5.6. Refer to [facility] for full history, though patient was recently hospitalized both here and at [facility] in [place], discharged a week ago. At [place] she was reportedly awaiting a transfer to [facility] [place] for possible bowel obstruction, however with her pain spontaneously resolving she was ultimately discharged home. She has extensive past medical history. Morbid obese female on exam, suprapubic catheter present with some surrounding erythema and purulence to the site. Left lower quadrant ostomy bag with brown stool. Her leg bag containing small amount of brown urine. Overall patient was lethargic, though alert and oriented x 4 she was slow to respond and overall ill-appearing. Tachycardic and soft blood pressure at initial presentation. IV established. Initial ABG within normal limits without evidence of significant acid-base disturbance. Chest x-ray demonstrating atherosclerotic changes with no acute process?no infiltrate, effusion, pneumothorax, or pulmonary edema. Findings do not explain current symptoms of hypotension, RANI, or altered mentation. Laboratory studies notable for leukocytosis, marked RANI, electrolyte abnormalities, elevated lactate, and high ESR/CRP raising concern for underlying infection or ischemia. CT abdomen and pelvis demonstrates high-grade small bowel obstruction without obstructive uropathy. IV fluids, NG decompression, and broad-spectrum antibiotics initiated. I consulted Dr. Flores, general surgery, feeling that the patient is not a surgical candidate given the extensive comorbidities and poor expected outcome. I relayed this to patient and family in the room, they had reported to me that [facility] was still an option for them and they would like transferred there for a second opinion. I spoke to general surgery at [facility], who state that again this patient is a very poor surgical candidate and that they would not do anything past NG tube and TPN. I spoke to the family in regards to this, and Dr. Flores kindly agrees to consult the family and informed them personally of the implications of why she is not a surgical candidate and the likely poor outcomes. Overall poor prognosis, family is informed of this and after extensive goals of care discussion with family, electing for comfort focused treatment and patient will be admitted for comfort care measures. Dr. Ibanez is the accepting hospitalist, Dr. Funez here in the emergency department is briefed on this patient and personally sees them and agrees with the disposition. The case was discussed with the midlevel provider. Evaluation and management service: I agree with the evaluation and management decisions made in this patient's care. Results interpretation: I agree with the study interpretation in this patient's care, I agree with the documentation of the study interpretation. I evaluated the patient personally. She is currently resting comfortably. She has an NG tube in place. Lab Data 05/12/25 14:10 05/12/25 14:10 Labs/Radiology: Radiology Impressions Chest X-Ray 05/12/25 13:26 Impression: Atherosclerosis. Abdomen/Pelvis CT 05/12/25 14:44 IMPRESSION: 1. High-grade small bowel obstruction within a left parastomal hernia. Exact transition point is difficult to define given the conglomeration of bowel loops. Again the distal ileum to the terminal ileum is extremely decompressed. 2. Nonobstructing right nephrolithiasis. 3. 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 COMMENT: THIS REPORT CONTAINS FINDINGS THAT MAY BE CRITICAL TO PATIENT CARE. The exam findings were verbally communicated by me to SUJATHA KANG via telephone conference at 4:04 PM TEAMCENTER SOLUTION ARCHITECT on 05/12/2025. The findings were acknowledged and understood. COMMENTS: For patients with an IVC filter, recommend assessment for a management plan for the patient's IVC filter. If there is no established management plan, recommend referral to an interventional clinician on a nonemergent basis for evaluation. Abdomen X-Ray 05/12/25 18:11 IMPRESSION: Nasogastric tube in the stomach IVC filter in position Post cholecystectomy status. COMMENTS: For patients with an IVC filter, recommend assessment for a management plan for the patient's IVC filter. If there is no established management plan, recommend referral to an interventional clinician on a nonemergent basis for evaluation. Laboratory Results WBC 19.32 10^3/uL (3.29-11.43) H 05/12/25 14:10 RBC 4.14 10^6/uL (3.85-5.65) 05/12/25 14:10 Hgb 12.00 g/dL (11.27-16.99) 05/12/25 14:10 Hct 37.3 % (36-47) 05/12/25 14:10 MCV 90.1 fl (85-98) 05/12/25 14:10 MCH 29.0 pg (27-33) 05/12/25 14:10 MCHC 32.2 g/dL (30-55) 05/12/25 14:10 RDW 13.9 % (12.1-15.1) 05/12/25 14:10 Plt Count 592 10^3/cmm (157-399) H 05/12/25 14:10 MPV 10.5 fL (7.4-10.4) H 05/12/25 14:10 Neut % (Auto) 85.1 % 05/12/25 14:10 Lymph % (Auto) 6.0 % 05/12/25 14:10 [place] % (Auto) 7.5 % 05/12/25 14:10 Eos % (Auto) 0.2 % 05/12/25 14:10 Baso % (Auto) 0.3 % 05/12/25 14:10 Neut # (Auto) 16.46 10^3/uL (1.8-7.7) H 05/12/25 14:10 Lymph # (Auto) 1.2 10^3/uL (0.8-4.8) 05/12/25 14:10 [place] # (Auto) 1.5 10^3/uL (0.2-0.9) H 05/12/25 14:10 Eos # (Auto) 0.0 10^3/uL (0.0-0.8) 05/12/25 14:10 Baso # (Auto) 0.1 10^3/uL (0.0-0.1) 05/12/25 14:10 Nucleated RBC % (auto) 0 % 05/12/25 14:10 Nucleated RBCs # 0.0 /100WBC 05/12/25 14:10 ESR 91 mm/hr (0-15) H 05/12/25 14:10 Specimen Type Arterial 05/12/25 13:36 Sample Site Brachial, left 05/12/25 13:36 ABG pH 7.44 (7.35-7.45) 05/12/25 13:36 ABG pCO2 35.5 mmHg (35-45) 05/12/25 13:36 ABG pO2 91.3 mmHg (80.0-100.0) 05/12/25 13:36 ABG PO2/FiO2 Ratio 434 05/12/25 13:36 ABG HCO3 24.2 mmol/L (22-26) 05/12/25 13:36 ABG O2 Saturation 97.5 05/12/25 13:36 ABG Base Excess 0.3 mmol/L (-2.0-2.0) 05/12/25 13:36 Juan Test Pos 05/12/25 13:36 A-a O2 Gradient 1.8 mmHg (5-10) L 05/12/25 13:36 Hematocrit 35.5 % (37-47) L 05/12/25 13:36 Hgb O2 Saturation 95.9 % (95-100) 05/12/25 13:36 Carboxyhemoglobin 0.9 %THgb (0.4-20.1) 05/12/25 13:36 Methemoglobin 0.6 % (0.4-1.5) 05/12/25 13:36 Total Hemoglobin 11.6 g/dL (12-16) L 05/12/25 13:36 Sodium 127.0 mmol/L (131-143) L 05/12/25 13:36 Potassium 5.4 mmol/L (3.5-5.0) H 05/12/25 13:36 Glucose 153.0 mg/dL (70-115) H 05/12/25 13:36 Ionized Calcium 1.1 mmol/L (1.1-1.4) 05/12/25 13:36 O2 Delivery Device Room air 05/12/25 13:36 FiO2 21.0 % 05/12/25 13:36 Mobile Home Technician ID [employer] 05/12/25 13:36 Sodium 126 mmol/L (136-145) L 05/12/25 14:10 Potassium 5.4 mmol/L (3.5-5.1) H 05/12/25 14:10 Chloride 85 mmol/L (98-107) L 05/12/25 14:10 Carbon Dioxide 20 mmol/L (22-29) L 05/12/25 14:10 Anion Gap 26.4 (5-19) H 05/12/25 14:10 BUN 100 mg/dL (6-20) H* 05/12/25 14:10 Creatinine 4.0 mg/dL (0.5-0.9) H 05/12/25 14:10 GFR Calculation 11.5 mL/min (90-130) L 05/12/25 14:10 Glucose 135 mg/dL (65-115) H 05/12/25 14:10 Calculated Osmolality 295 mOsm/kg (285-295) 05/12/25 14:10 Lactic Acid 2.6 mmol/L (0.5-2.2) H 05/12/25 14:10 Calcium 9.2 mg/dL (8.5-10.5) 05/12/25 14:10 Phosphorus 7.1 mg/dL (2.5-4.5) H 05/12/25 14:10 Magnesium 2.0 mg/dL (1.7-2.3) 05/12/25 14:10 Total Bilirubin 0.2 mg/dL (0.15-1.2) 05/12/25 14:10 AST 26 U/L (0-32) 05/12/25 14:10 ALT 27 U/L (0-33) 05/12/25 14:10 Alkaline Phosphatase 159 U/L (35-105) H 05/12/25 14:10 C-Reactive Protein 67.6 mg/L (0.0-4.9) H 05/12/25 14:10 NT-Pro-B Natriuret Pep 278 pg/mL (0-125) H 05/12/25 14:10 Total Protein 8.8 g/dL (6.6-8.7) H 05/12/25 14:10 Albumin 3.3 g/dL (3.5-5.2) L 05/12/25 14:10 Globulin 5.5 g/dL (1.3-4.6) H 05/12/25 14:10 Urine Color Yellow (Yellow) 05/12/25 14:55 Urine Appearance Cloudy (CLEAR) A 05/12/25 14:55 Urine pH 5.0 (5-7) 05/12/25 14:55 Ur Specific [employer] 1.017 (1.005-1.030) 05/12/25 14:55 Urine Protein 1+ (Negative) A 05/12/25 14:55 Urine Glucose (UA) Negative (Normal) 05/12/25 14:55 Urine Ketones Trace (Negative) 05/12/25 14:55 Urine Blood 2+ (Negative) A 05/12/25 14:55 Urine Nitrate Negative (Negative) 05/12/25 14:55 Urine Bilirubin Negative (Negative) 05/12/25 14:55 Urine Urobilinogen 0.2 mg/dL (Negative) 05/12/25 14:55 Ur Leukocyte Esterase 2+ (Negative) A 05/12/25 14:55 Urine RBC >100 /hpf (0-2) H 05/12/25 14:55 Urine WBC 51-100 /hpf (0-5) H 05/12/25 14:55 Ur Squamous Epith Cells 0-5 /hpf (0-5) 05/12/25 14:55 Amorphous Sediment Not Reportable 05/12/25 14:55 Urine Bacteria Trace /hpf (NONE) 05/12/25 14:55 Hyaline Casts 23.98 /lpf 05/12/25 14:55 Urine Yeast 3+ /hpf H 05/12/25 14:55 Discharge Plan Discharge Patient Disposition: Admitted As Inpatient Clinical Impression: SBO (small bowel obstruction), RANI (acute kidney injury) Sepsis Qualifiers: Sepsis type: sepsis due to unspecified organism Sepsis acute organ dysfunction status: unspecified Qualified Code(s): A41.9 - Sepsis, unspecified organism Condition: Stable Coding Level of Care Code 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 Hetal Huitron
[2025-05-12 13:49] LABS: ABG PCO2 35.5 mmHg (35-45); ABG PH Result 7.44 (7.35-7.45); Alveolar-Arterial Oxygen Gradi 1.8 mmHg (5-10); Arterial Blood Gas Hematocrit 35.5 % (37-47); Blood Gas Allen Test Pos; Blood Gas Operator Identificat WALCI; Blood Gas Sample Site Brachial, left; Blood Gas Sample Type Arterial; Carboxyhemoglobin 0.9 %THgb (0.4-20.1); Glucose Level-ABG 153.0 mg/dL (70-115); HCO3 ABG 24.2 mmol/L (22-26); Ionized Calcium Level - ABG 1.1 mmol/L (1.1-1.4); Methemoglobin 0.6 % (0.4-1.5); Oxygen Saturation ABG 97.5; PO2 ABG 91.3 mmHg (80.0-100.0); PO2 FiO2 Ratio Arterial Blood 434; Potassium Level - ABG 5.4 mmol/L (3.5-5.0); Sodium Level - ABG 127.0 mmol/L (131-143)
[2025-05-12 14:41] LABS: Hematocrit 37.3 % (36-47); Hemoglobin 12.00 g/dL (11.27-16.99); Mean Corpuscular HGB Conc 32.2 g/dL (30-55); Mean Corpuscular Hemoglobin 29.0 pg (27-33); Mean Corpuscular Volume 90.1 fl (85-98); Nucleated Red Blood Cells % 0 %; Platelet Count 592 10^3/cmm (157-399); Red Blood Count 4.14 10^6/uL (3.85-5.65); White Blood Count 19.32 10^3/uL (3.29-11.43)
--- NOTE | 2025-05-12 14:44 | CTR_ITS ---
PROCEDURE INFORMATION: Exam: CT Abdomen And Pelvis Without Contrast Exam date and time: 05/12/2025 3:05 PM Age: 55 years old Clinical indication: Abdominal pain; Generalized; Additional info: Abd pain, back pain, suprapubic catheter, HX obstruction TECHNIQUE: Imaging protocol: Computed tomography of the abdomen and pelvis without contrast. Radiation optimization: All CT scans at this facility use at least one of these dose optimization techniques: automated exposure control; mA and/or kV adjustment per patient size (includes targeted exams where dose is matched to clinical indication); or iterative reconstruction. COMPARISON: CT abdomen pelvis w con* [id number] 04/22/2025 5:40 PM RADIATION DOSE METRICS: Total DLP (mGy-cm): 1461.27 FINDINGS: Tubes, catheters and devices: There is a suprapubic catheter decompressing the bladder. Lungs: There are 2 calcified nodules within the left lower lobe and a single calcified nodule within the right lower lobe. Liver: Normal. No mass. Gallbladder and biliary ducts: Cholecystectomy Pancreas: There is severe fatty replacement and atrophy of the pancreas. Spleen: Normal. No splenomegaly. Adrenal glands: Normal. No mass. Kidneys and ureters: There are nonobstructing right renal calculi. At least 4 are identified with the largest at the superior pole measuring 7 mm. Stomach and bowel: There is a large left-sided parastomal hernia again identified. Multiple dilated loops of small bowel persists within the parastomal hernia with maximal caliber of 6 cm. The distal small bowel/mid and distal ileum within the central abdomen extending to the terminal ileum and cecum at the right lower quadrant is extremely decompressed. Appendix: No evidence of appendicitis. Intraperitoneal space: Unremarkable. No free air. No significant fluid collection. Vasculature: An IVC filter is in place inferior to the renal veins. The abdominal aorta is normal in caliber. Lymph nodes: Unremarkable. No enlarged lymph nodes. Urinary bladder: Unremarkable as visualized. Reproductive: Unremarkable as visualized. Bones/joints: Unremark there is a sacral decubitus ulcer with soft tissue gas tracking to chronic bone loss and sclerosis of coccygeal segments. Soft tissues: Unremarkable CT/CT abdomen pelvis wo con [id number] IMPRESSION: 1. High-grade small bowel obstruction within a left parastomal hernia. Exact transition point is difficult to define given the conglomeration of bowel loops. Again the distal ileum to the terminal ileum is extremely decompressed. 2. Nonobstructing right nephrolithiasis. 3. 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 COMMENT: THIS REPORT CONTAINS FINDINGS THAT MAY BE CRITICAL TO PATIENT CARE. The exam findings were verbally communicated by me to SUJATHA KANG via telephone conference at 4:04 PM IN STORE MARKETING ASSOCIATE on 05/12/2025. The findings were acknowledged and understood. COMMENTS: For patients with an IVC filter, recommend assessment for a management plan for the patient's IVC filter. If there is no established management plan, recommend referral to an interventional clinician on a nonemergent basis for evaluation.
[2025-05-12 14:48] LABS: Lactic Sepsis W/Reflex 2.6 mmol/L (0.5-2.2)
--- NOTE | 2025-05-12 14:51 | ECG_ITS ---
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 Measurements Intervals [address] Rate: 100 P: 53 TN: 135 QRS: 33 QRSD: 86 T: 46 QT: 295 QTc: 382 Interpretive Statements SINUS TACHYCARDIA MINIMAL ST DEPRESSION [0.025+ mV ST DEPRESSION] ABNORMAL RHYTHM ECG Compared to ECG 04/30/2025 05:17:59 ST (T wave) deviation now present Sinus rhythm no longer present Electronically Signed On 05-12-2025 23:51:08 CRICKET COACH by Pipo Moser M.D. [email or web address]
[2025-05-12 14:58] LABS: Alanine Aminotransferase 27 U/L (0-33); Albumin Level 3.3 g/dL (3.5-5.2); Alkaline Phosphatase 159 U/L (35-105); Anion Gap 26.4 (5-19); Aspartate Amino Transferase 26 U/L (0-32); Calcium 9.2 mg/dL (8.5-10.5); Carbon Dioxide 20 mmol/L (22-29); Chloride 85 mmol/L (98-107); Creatinine Clr Calc Pharmacy 17.1417; Globulin 5.5 g/dL (1.3-4.6); Glucose 135 mg/dL (65-115); Magnesium 2.0 mg/dL (1.7-2.3); NT Pro B Type Natriuretic Pept 278 pg/mL (0-125); Osmolality Calculated 295 mOsm/kg (285-295); Potassium 5.4 mmol/L (3.5-5.1); Sodium 126 mmol/L (136-145); Total Protein 8.8 g/dL (6.6-8.7)
[2025-05-12 15:02] LABS: Blood Urea Nitrogen 100 mg/dL (6-20)
[2025-05-12 15:09] LABS: Glucose Urine UA Negative (Normal); Nitrate Urine Negative (Negative); Specific Gravity, Urine 1.017 (1.005-1.030)
[2025-05-12 15:15] LABS: Add Urine Microscopic? YES
[2025-05-12] MEDS: cefepime 1,000 mg SDV 1000 MG IVP (16:08)
[2025-05-12] MEDS: metroNIDAZOLE IV 500 MG/100 ML PREMIX 100 MG IV (16:10)
[2025-05-12 16:14] LABS: Reflex Lactate Order REFLEX LACTIC ORDERD
--- NOTE | 2025-05-12 17:57 | PM.CONSULT ---
Providers/Reason For Consult Consulting Physician/Specialty*: Dr. 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 Patient was eventually discharged and has been doing well. Today she comes back to the emergency department with an SBO at the site of the 2 colocutaneous fistulas as well as prior abdominal wall debridement. She is in septic shock. Renal failure. Exquisitely tender at the site of the small bowel obstruction. She also has loss of domain where the abdominal wall debridement was carried out. Son and sister at bedside who provided the story and are making decisions for her. I also called another son who is the main decision maker. Medications/Allergies Home Medications ?Medication ?Instructions ?Recorded ?Confirmed ?Last Taken ?Type gabapentin 600 mg tablet 600 mg PO BEDTIME 04/12/20 05/12/25 05/11/25 History venlafaxine 150 mg 150 mg PO BEDTIME 04/12/20 05/12/25 05/11/25 19:00 History capsule,extended release 24 hr trazodone 50 mg tablet 25 mg PO BEDTIME 09/24/23 05/12/25 05/11/25 20:00 History prothrombin time/INR test metr #30 ea 08/24/24 05/12/25 Unknown Rx diphenoxylate-atropine 2.5 2 tab PO QID PRN Diarrhea 02/04/25 05/12/25 03/03/25 History mg-0.025 mg tablet loperamide 2 mg capsule 4 mg PO QID PRN Diarrhea 02/04/25 05/12/25 02/03/25 History ondansetron 8 mg disintegrating 8 mg PO TID PRN Nausea And Vomiting 02/23/25 05/12/25 Unknown History tablet pantoprazole 40 mg tablet,delayed 40 mg PO BID 03/04/25 05/12/25 05/11/25 History release hydrocodone 7.5 mg-acetaminophen 1 tab PO Q8H PRN pain #20 tabs 04/22/25 05/12/25 Unknown Rx 325 mg tablet Allergies Allergy/AdvReac Type Severity Reaction Status Date / Time levofloxacin (From Levaquin) Allergy Unknown Unknown Verified 02/22/25 13:52 azithromycin Allergy Unknown Verified 02/22/25 13:52 Penicillins Allergy Unknown Verified 02/22/25 13:52 tramadol (From Ultram) Allergy Unknown Verified 02/22/25 13:52 vancomycin Allergy Unknown Verified 02/22/25 13:52 amoxicillin AdvReac Unknown ADR-Seizure Verified 02/22/25 13:52 PFSH Acute PFSH: Medical History (Updated 05/12/25 @ 18:04 by Miguel Flores MD) Shock Groin hematoma BMI 50.0-59.9, adult Chronic anticoagulation History of angiography 2015 abdominal angiography and lower extremity angiography - normal abdominal aorta, pelvic vessels normal, all lower extremity vessels unremarkable, 3 vessel runoff below both knees History of cardiovascular stress test 07/2024 abnormalities on myocardial perfusion scanning History of sleep study 05/2017 - cpap auto-titrating 15-19 Wound of sacral region goes to wound care clinic Abscess of sacrum Parastomal hernia Ventral incisional hernia GERD (gastroesophageal reflux disease) Depression Fracture of fifth toe, right, closed History of sleep apnea sleep study in 2017 recommended auto-titrating cpap 15-[address] Complications of surgery for ovarian cyst around 2004 resulting in bowel injury Chronic venous insufficiency of lower extremity PVD (peripheral vascular disease) History of DVT (deep vein thrombosis) (2004) and pulmonary embolism 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 Chronic osteomyelitis Neurogenic bladder Chronic cystitis Surgical History History of carpal tunnel release History of abdominal surgery (2007) excision of pelvic cysts complicated by bowel perforation, had multiple procedures including colostomy History of inferior vena caval filter placement (2004) still in place in 08/2024 History of incision and drainage (04/2019) sacral wound History of back surgery (2004) for spinal abscess x 2 History of hysterectomy (2003) S/P cholecystectomy S/P section Suprapubic catheter (~2004) following urology in [place] Family History Family/Other Diabetes Cancer CAD (coronary artery disease) Mother , at age 74 Sepsis Cancer melanoma Diabetes Father Heart disease Other Dementia Diabetes mellitus type 1 Hypertension Stroke Social History Smoking and tobacco/nicotine status: never used tobacco/nicotine Alcohol intake: never Substance/Drug Use: never Additional social history: daughter performs dressing changes twice per day, she and other family provide assistance as needed, wheelchair dependent, able to use transfer board Caregiver/support person: Yes Lives independently: Yes Marital status: Current occupational status: disabled Vitals/I&O/Wt Last Vital Signs Temp 98.5 F 05/12/25 12:27 Pulse 100 05/12/25 16:35 Resp 18 05/12/25 12:27 BP 104/56 05/12/25 16:35 Pulse Ox 95 05/12/25 15:25 O2 Del Method Room Air 05/12/25 15:25 Weight last 48 hrs Weight 220 lb Physical Exam Narrative: Altered. Chest: Tachypneic Heart: Tachycardic, hypotensive Abdomen: Soft, tender to palpation at site of prior abdominal wall debridement which is the same site of the 2 colocutaneous. Data 05/12/25 14:10 05/12/25 14:10 Micro: Microbiology 05/12/25 14:10 Blood Culture - Preliminary Blood SPECIMEN COLLECTED 05/12/25 14:10 Blood Culture - Preliminary Blood SPECIMEN COLLECTED A&P Assessment and plan 1. Colocutaneous fistula: 2. Small bowel obstruction: 3. Septic shock: Plan: 55-year-old female with multiple medical problems as well as a complicated surgical history that includes 2 colocutaneous fistulas, necrotizing soft tissue infection at the site of the colocutaneous fistula status post wide debridement, who now returns in septic shock secondary to high-grade small bowel obstruction at the site of the colocutaneous fistulous. Patient has loss of domain. From my perspective she is not a surgical candidate as surgery has a very high risk of multiple iatrogenic enterotomies given the presence of these 2 colocutaneous fistulas as well as prior to wall debridement which will make dissection extremely difficult. In addition she has loss of domain therefore abdominal closure is going to be extremely difficult [place] [facility]. ER provider consulted with [facility] where she was last transferred for management of colocutaneous fistulas and they agree with the fact that she is not an operative candidate as surgery is most likely going to harm her rather than help her. I had an extensive discussion with the patient's sister and 2 sons. Explained all of these facts in detail. Answered all of their questions. They will have a family meeting to decide on goals of care, and they are considering comfort measures only. Discussed with ER provider. PDMP PDMP Reviewed: Not Reviewed Coding Level of Care Code 37847 Diagnoses Colocutaneous fistula K63.2 Small bowel obstruction K56.609 Septic shock A41.9; R65.21
--- NOTE | 2025-05-12 18:11 | XRR_ITS ---
PROCEDURE INFORMATION: Exam: XR Abdomen Exam date and time: 05/12/2025 6:14 PM Age: 55 years old Clinical indication: Device placement; Gi device; Nasogastric tube; Additional info: Ng placement TECHNIQUE: Imaging protocol: Radiologic exam of the abdomen. Views: Frontal supine view of the abdomen. 1 View. COMPARISON: CT abdomen pelvis con [id number] 05/12/2025 3:05 PM FINDINGS: Tubes, catheters and devices: Nasogastric tube is in the stomach Gastrointestinal tract: Bowel-gas pattern nonspecific Organs: Patient is status post cholecystectomy. Vasculature: IVC filter in position Bones/joints: Unremarkable. XR/XR abdomen 1V* [id number] IMPRESSION: Nasogastric tube in the stomach IVC filter in position Post cholecystectomy status. COMMENTS: For patients with an IVC filter, recommend assessment for a management plan for the patient's IVC filter. If there is no established management plan, recommend referral to an interventional clinician on a nonemergent basis for evaluation.
[2025-05-12 22:12] LABS: Lactic Acid level (Lactate) 1.7 mmol/L (0.5-2.2)
--- NOTE | 2025-05-12 22:19 | P.HP_ITS ---
Providers/Chief Complaint 2 Admitting Physician: Don Ibanez MD Primary Care Provider: Marcus Benson MD Chief Complaint: low back pain (sent by mu) History of Present Illness As per the previous notes and the patient/family: Jami Gandhi is a 55 year old female with PMH of necrotizing fasciis, UTI, chronic suprapubic catheter, h/o sacral ulcer and wound, SAVAGE on CPAP, chronic Lymphedema and venous insufficiency, depression, pvd and DVT on chronic anticoagulation and recently held due to hematuria and bleeding from the colostomy side, came to the ER,sent by her primary care provider who had labs drawn on Saturday showing elevated creatinine of 5.5. Of note this patient was recently hospitalized on 04/29 for hyperkalemia, hyponatremia, and acute on chronic renal failure and subsequently was transferred to [facility] due to her reports of abdominal pain and possible bowel obstruction. Family states that while at [facility] she had no instrumentation done as her abdominal pain resolved spontaneously and she was awaiting a transfer to [place] but due to the resolution of the patient eventually was discharged home. This was 6 days ago, she had a follow-up on Saturday where she had the labs drawn, today went to reevaluation appointment where was noted that her creatinine was significantly elevated. patient's son was in the room, who is primary historian, states that the patient has been increasingly lethargic and nauseous, no vomiting or fevers. I further inquired about her status current situation and complications, the family did not want to pursue with any intervention and want to treat her medically. I further asked about hospice care but patient was not sure and just want her mother to be at comfort. The son did not report any recent bleeding episodes or any high-grade fevers. The patient is a poor historian due to her lethargic therefore most of the history was taken from patient's son and the retrospective notes. She underwent further investigation and small bowel obstruction was diagnosed after the CAT scan of abdomen/pelvis was done. Surgery was taken on board and considering her is a poor surgical candidate patient to be kept as comfort care and without any surgical intervention. Thorough discussion was made by the surgeon and the ER physician taking care initially for the patient. And documented to keep the patient at comfort measures. Medications/Allergies Home Medications ?Medication ?Instructions ?Recorded ?Confirmed ?Last Taken ?Type gabapentin 600 mg tablet 600 mg PO BEDTIME 04/12/20 1 07/12/24 05/11/25 History venlafaxine 150 mg 150 mg PO BEDTIME 04/12/20 1 07/12/24 05/11/25 19:00 History capsule,extended release 24 hr trazodone 50 mg tablet 25 mg PO BEDTIME 09/24/2305/11/25 20:00 History prothrombin time/INR test metr #30 ea 08/24/24 5 Unknown Rx diphenoxylate-atropine 2.5 2 tab PO QID PRN Diarrhea 0 02/04/25 05/12/25 03/03/25 History mg-0.025 mg tablet loperamide 2 mg capsule 4 mg PO QID PRN Diarrhea 05/12/25 02/03/25 History ondansetron 8 mg disintegrating 8 mg PO TID PRN Nausea And Vomiting 02/23/25 05/12/25 Unknown History tablet pantoprazole 40 mg tablet,delayed 40 mg PO BID 5 05/12/25 05/11/25 History release hydrocodone 7.5 mg-acetaminophen 1 tab PO Q8H PRN pain #20 tabs 04/22/25 05/12/25 Unknown Rx 325 mg tablet Allergies Allergy/AdvReac Type Severity Reaction Status Date / Time levofloxacin (From Levaquin) Allergy Unknown Unknown Verified 02/22/25 13:52 azithromycin Allergy Unknown Verified 02/22/25 13:52 Penicillins Allergy Unknown Verified 02/22/25 13:52 tramadol (From Ultram) Allergy Unknown Verified 02/22/25 13:52 vancomycin Allergy Unknown Verified 02/22/25 13:52 amoxicillin AdvReac Unknown ADR-Seizure Verified 02/22/25 13:52 PFSH Acute 2 PFSH: Medical History (Updated 05/12/25 @ 22:24 by Don Ibanez MD) BMI 50.0-59.9, adult Shock Groin hematoma Chronic anticoagulation History of angiography 2015 abdominal angiography and lower extremity angiography - normal abdominal aorta, pelvic vessels normal, all lower extremity vessels unremarkable, 3 vessel runoff below both knees History of cardiovascular stress test 07/2024 abnormalities on myocardial perfusion scanning History of sleep study 05/2017 - cpap auto-titrating 15-19 Wound of sacral region goes to wound care clinic Abscess of sacrum Parastomal hernia Ventral incisional hernia GERD (gastroesophageal reflux disease) Depression Fracture of fifth toe, right, closed History of sleep apnea sleep study in 2017 recommended auto-titrating cpap 15-[address] Complications of surgery for ovarian cyst around 2004 resulting in bowel injury Chronic venous insufficiency of lower extremity PVD (peripheral vascular disease) History of DVT (deep vein thrombosis) (2004) and pulmonary embolism 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 Chronic osteomyelitis Neurogenic bladder Chronic cystitis Surgical History History of carpal tunnel release History of abdominal surgery (2007) excision of pelvic cysts complicated by bowel perforation, had multiple procedures including colostomy History of inferior vena caval filter placement (2004) still in place in 08/2024 History of incision and drainage (04/2019) sacral wound History of back surgery (2004) for spinal abscess x 2 History of hysterectomy (2003) S/P cholecystectomy S/P section Suprapubic catheter (~2004) following urology in [place] Family History Family/Other Diabetes Cancer CAD (coronary artery disease) Mother , at age 74 Sepsis Cancer melanoma Diabetes Father Heart disease Other Dementia Diabetes mellitus type 1 Hypertension Stroke Social History Smoking and tobacco/nicotine status: never used tobacco/nicotine Alcohol intake: never Substance/Drug Use: never Additional social history: daughter performs dressing changes twice per day, she and other family provide assistance as needed, wheelchair dependent, able to use transfer board Caregiver/support person: Yes Lives independently: Yes Marital status: Current occupational status: disabled Vitals/I&O/Wt Last Vital Signs Temp 98.5 F 05/12/25 12:27 Pulse 100 05/12/25 21:46 Resp 16 05/12/25 21:30 BP 99/73 05/12/25 21:46 Pulse Ox 97 05/12/25 21:46 O2 Del Method Room Air 05/12/25 20:06 05/12/25 05/12/25 05/12/25 06:59 14:59 22:59 Intake Total 2099 Balance 2099 Weight last 48 hrs Weight 99.79 kg Physical Exam 2 Narrative: General: Morbidly obese lady, alert and oriented but feels sleepy, unkempt, with chronic lymphedema changes bilaterally at the lower extremities and looks on the dry side. Cardio: normal rate rhythm, normal S1-S2 without any murmurs, rubs, or gallops and JVD normal however limited exam due to body habitus Respiratory: Equal air entry without any wheezes or stridor, limited exam due to obese body habitus GI: Abdomen soft, mild tender near the colostomy region but no swelling appreciated, colostomy bag with stools, distended, bowel sounds appreciated but cannot comment on exaggerated in nature or reduced in nature due to morbid obesity, having suprapubic catheter in place Neuro: Gross neurological examination unremarkable Behavior: Appropriate and cooperative Extremities: Adequate palpable pulses, bilateral pedal edema with chronic lymphedema skin thickening Data 05/12/25 14:10 05/12/25 14:10 Micro: Microbiology 05/12/25 14:10 Blood Culture - Preliminary Blood SPECIMEN COLLECTED 05/12/25 14:10 Blood Culture - Preliminary Blood SPECIMEN COLLECTED A&P Assessment and plan 1. Sepsis: Patient fulfills the criteria of sepsis based on an cephalopathy, leukocytosis, decreased capillary refill. High lactate of 2.6 and repeat in the morning Patient received sepsis bolus in the ER, continue maintenance fluids Received cefepime and metronidazole Continue cefepime 1 g daily and metronidazole 500 every 8h based on renal functions Follow-up blood cultures and urine cultures Of note: Patient to be kept on comfort measures along with antibiotics and fluids as per thorough discussion with the whole family that I confirmed with the ER physician/BAILEY Esparza/Dr. Funez supervising physician for BAILEY Esparza, who had the thorough discussion since I could not find anyone from the family apart from younger daughter who was not present at the time of discussion about patient goals of care with the ER physician and the surgeon/for full discussion and documentation refer to the ER physician and surgeons note. However I discussed about the plan of care with the daughter of the patient who was available at my encounter while evaluating the patient, she was informed with all the risk and benefits and complications with her guarded prognosis and critical condition based on her overall comorbidities. She was understanding of the situation and agreed to proceed with DNR and comfort measures for the patient as it has already been discussed. 2. SBO (small bowel obstruction): Patient carries high risk for any surgical intervention for her incarcerated bowels. On-call surgeon has already documented for comfort measures and medical management for the patient Protocol for medical management and comfort measures IV applied Patient is on NGT and continue with n.p.o. 3. RANI (acute kidney injury): Secondary to sepsis septic shock and underlying likely SBO/colitis Adequate hydration to continue Monitor renal functions 4. Acute encephalopathy: Secondary to sepsis and small bowel obstruction Continue adequate fluids and antibiotics Neurochecks every shift 5. Acute hyperkalemia: Calcium polystyrene once through NGT Repeat potassium in the morning 6. Colocutaneous fistula: No further intervention from surgery On NGT Continue to monitor intake and output 7. Sacral ulcer: Wound care Adequate analgesia 8. Chronic suprapubic catheter: Urine catheter has been recently changed Catheter care To keep the current catheter if there is no signs of infection, since there is an issue with the size available and it is only available in [facility] as per the son 9. GERD (gastroesophageal reflux disease): Continue PPI 10. Depression: Patient medication reconciled and held since due to small bowel obstruction to hold as the patient is currently drowsy 11. SAVAGE on CPAP: Avoid BiPAP since it can lead to overdistention of the stomach and further worsening of abdominal pain Oxygen therapy protocol to continue 12. Lymphedema: Currently stable Wound care Plan: Continue comfort measures protocol. PDMP PDMP Reviewed: Not Reviewed Attestations 2 Medical Necessity Statement*: Patient will stay more than 2 midnights for the medical management of her small bowel obstruction without any surgical intervention due to patient being a poor candidate for surgery with high risk and complications, family made aware and agree with the plan of care The family wishes to proceed with comfort care along with management with the fluids and antibiotics and not to escalate with vasopressors, intubations chest compression, defibrillation, invasive lines placement that may be futile considering she carries a guarded prognosis and is critically ill with poor surgery candidate. Family thoroughly understands that the patient has been going through a lot and carries a lot of comorbidities that compromises her quality of life and at the moment she is critically ill and escalation of care carries more risk than benefit in her condition. Therefore agreed and was emotional with the current scenario however understands it making her comfortable with conservative medical management in the best interest. The following discussion was made with the ER physician and the surgeon and documented accordingly. Time Spent in Patient Care: 16 - 35 minutes (>than 50% of time sp ent in counselling and/or direct pt care on unit) . Other Attestations: Patient condition has been discussed at length with the patient/family, I have independently reviewed the chart labs imaging/diagnostics/EKG. the goals of care and code status with the patient/family/NOK/legal entry level marketing representative, and documented accordingly. The management has been done according to the current clinical condition with respect to patient goals of care and based on recommendations/guidelines. The patient/family has been informed about the current condition and further plan of care. Agreed with the plan of care and understood without any language barrier. Every effort was made to ensure accuracy of legal assistant. Any obvious errors or omissions should be clarified with the author of the document. Coding Level of Care Code 04629 Diagnoses Sepsis A41.9 SBO (small bowel obstruction) K56.609 RANI (acute kidney injury) N17.9 Acute encephalopathy G93.40 Acute hyperkalemia E87.5 Colocutaneous fistula K63.2 Sacral ulcer L98.429 Chronic suprapubic catheter Z93.59 GERD (gastroesophageal reflux disease) K21.9 Depression F32.A SAVAGE on CPAP G47.33 Lymphedema I89.0
--- NOTE | 2025-05-12 23:39 | PC.NURSE ---
Comfort Care vs. DNR: Witnessed Dr. Ibanez speak with Brenda (pt daughter) at the bedside. Code status was explained and she expressed understanding. All questions answered. In private Dr. Ibanez then called the ER Physician on speaker phone so this nurse could hear the conversation. ER Physician stated that he has spoken with patient's family (multiple members present) and it was agreed that with the patient's severity of her current illness coupled with her complex medical conditions that her prognosis was poor. He said that the family stated that they wanted to keep her comfortable. IVF and SHAYAN were ok but care would not be escalated beyond that.
[2025-05-13 02:29] LABS: INR 0.98 (0.8-1.2); Prothrombin Time 13.70 SECONDS (12.1-14.9)
[2025-05-13 02:30] LABS: Partial Thromboplastin Time 28.7 SECONDS (23.9-36.7)
[2025-05-13 02:36] LABS: Lactate (Lactic Acid level) 1.0 mmol/L (0.5-2.2)
[2025-05-13] MEDS: ondansetron 2 mg/ML SDV 2 mL 4 MG IVP ×3 (03:15→16:53)
[2025-05-13 07:53] VITALS: BP 90/68; PULSE 100; RESP 17; TEMP 36.9; O2SAT 94
[2025-05-13] MEDS: morphine 4 mg/mL SDV 1 mL IVP ×3 (10:39→23:35)
--- NOTE | 2025-05-13 14:44 | P.PN_ITS ---
Subjective 2 Subjective: - Patient was seen this morning - Patient's son is at bedside - She is alert to person, not to place, to time, falls back asleep, - Appears ill, NG tube in place - Discussed events of last night in the emergency room, - Had a discussion with patient's son - Patient could not make decisions for s elf she does not have capacity to make decisions - Discussed ER discussion with patient's family, overnight physicians discussion with family, surgery discussion with family - Discussed options available - Discussed medical management, - Currently she is in septic shock, with high-grade bowel obstruction, multiple source of infection including Staph epidermidis bacteremia, UTI, concern for intra-abdominal infection, with uremia, acute renal failure, with underlying comorbidities, she was not deemed a surgical candidate by [facility], not a candidate deemed by her surgeon, with persistent high-grade bowel obstruction as high risk of morbidity and mortality - Discussed comfort care - Comfort goal of comfort care is to eas e her pain and ease her suffering allow her to pass away comfortably - Discussed risk benefits of all options , shared decision making, he voiced understanding, all questions answered, he tells me that this is a very hard decision for him but he wants to continue comfort care -Discussed with patient's son about [facility] hosp[facility], discussed with the benefits, he voiced understanding, all questions answered, agreed to proceed - Discussed goal comfort cares to ease h er pain ease her suffering allow her to pass away comfortably - He is not ready to remove NG tube - Patient was reexamined this afternoon, discussed with family, they want to keep NG tube in place for now -Reexamined this evening, she is alert t o person, not to place, to time, is encephalopathic daughters at bedside she is having episodes of nausea and vomiting, discussed with daughter -Per discussion with the emergency room last night, last night with the ER and overnight physician -Discussed in detail comfort care hospic e, she voiced understanding, all questions answered, shared decision making, she has confirmed that family is proceeding with hospice -Discussed with daughter patient's septi c shock, staph bacteremia, high-grade bowel obstruction, UTI, intra-abdominal infection, renal failure, uremia -Discussed risks and benefits of hospice /comfort care, she voiced understanding, all questions answered, shared decision making, agreed to proceed -Goal of hospice is to ease Jeannies dis comfort, ease her pain and ease her suffering and allow her to pass away comfortably -She voiced understanding, all questions answered, agreed to proceed Vitals/I&O/Wt Last Vital Signs Temp 98.4 F 05/13/25 07:53 Pulse 100 05/13/25 07:53 Resp 17 05/13/25 07:53 BP 90/68 05/13/25 07:53 Pulse Ox 94 05/13/25 07:53 O2 Del Method Room Air 05/13/25 07:53 05/12/25 05/13/25 05/13/25 22:59 06:59 14:59 Intake Total 2099 611.667 / 2711.667 388.333 / 388.333 Output Total 350 / 350 Balance 2099 261.667 / 2361.667 388.333 / 388.333 Weight last 48 hrs Weight 73.482 kg Weight 101.831 kg Weight 99.79 kg Physical Exam 2 Const: EXAM LIMITATIONS: altered mental status GENERAL APPEARANCE: l ethargic ORIENTATION/CONSCIOUSNESS: Yes awake, Yes oriented to person, Yes patient obtunded and Yes lethargic; not oriented to place, not oriented to time and not confused Neck/C-Spine: OTHER: NG tube in place Resp: OTHER: Wheezing and crackles in all lung mas, nasal flaring, intercostal retractions, suprasternal retractions Cardio: COMMON NORMALS: regular rhythm, S1 normal heart sound present and S2 normal heart sound present RATE: tachycardic RHYTHM: regular rhythm H EART SOUNDS: S1 normal heart sound present and S2 normal heart sound present GI: OTHER: Abdomen soft, distended, no bowel sounds, no guarding, no rebound, no rigidity, does have diffuse abdominal tenderness Colostomy site, no stool in bag Extremity: NARRATIVE EXTREMITY EXAM: 2+ edema Neuro: SENSORIUM/ORIENTATION: Yes oriented to person, No oriented to place, No oriented to time and Yes lethargic Data 05/12/25 14:10 05/12/25 14:10 Micro: Microbiology 05/12/25 14:10 Blood Culture - Preliminary Blood SPECIMEN COLLECTED 05/12/25 14:10 Blood Culture - Preliminary Blood SPECIMEN COLLECTED A&P Assessment and plan 1. Sepsis: 2. SBO (small bowel obstruction): 3. RANI (acute kidney injury): 4. Acute encephalopathy: 5. Acute hyperkalemia: 6. Colocutaneous fistula: 7. Sacral ulcer: 8. Chronic suprapubic catheter: 9. Gastroesophageal reflux disease without esophagitis: 10. Other depression: 11. SAVAGE on CPAP: 12. Lymphedema: Plan: High-grade small bowel obstruction CT/CT abdomen pelvis wo con [id number] IMPRESSION: 1. High-grade small bowel obstruction within a left parastomal hernia. Exact transition point is difficult to define given the conglomeration of bowel loops. Again the distal ileum to the terminal ileum is extremely decompressed. 2. Nonobstructing right nephrolithiasis. 3. 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 fasciitis, history of abdominal wall debridement - Colocutaneous fistulas - Colostomy site - General Surgery, not a surgical candidate, [facility] consulted, not an operative candidate, Acute encephalopathy - Sec to uremia, sepsis, septic shock, bowel obstruction, UTI Staph epidermidis bacteremia Sepsis, septic shock - Secondary to small bowel obstruction, sacral ulcer, UTI, concerns for possible intra-abdominal infection Acute renal failure - Secondary to sepsis Uremia Hyponatremia Hyperkalemia Colostomy with complication Sacral ulcer History of DVT with history of bleeding from colostomy, off anticoagulant therapy Increased anion gap metabolic acidosis PDMP PDMP Reviewed: Not Reviewed Attestations 2 Medical Necessity Statement*: Patient requires hospitalization for comfort care Coding Level of Care Code Acute Code for Chg Fwd Diagnoses Sepsis A41.9 Sepsis acute organ dysfunction status: unspecified Sepsis type: sepsis due to unspecified organism SBO (small bowel obstruction) K56.609 RANI (acute kidney injury) N17.9 Acute encephalopathy G93.40 Acute hyperkalemia E87.5 Colocutaneous fistula K63.2 Sacral ulcer L98.429 Chronic suprapubic catheter Z93.59 Gastroesophageal reflux disease without esophagitis K21.9 Esophagitis presence: without esophagitis Other depression F32.89 Depression Type: other depression SAVAGE on CPAP G47.33 Lymphedema I89.0 Sepsis Event Note Evaluation Current stage of sepsis: septic shock Initial hypotension due to sepsis/infection: SBP < 90 mmHg Possible source: GI tract/intra-abdominal Focused Exam Vital Signs Temp Pulse Resp BP Pulse Ox O2 Del Method 05/13/25 07:53 98.4 F 100 17 90/68 94 Room Air 05/13/25 05:18 Room Air Respiratory exam: Present accessory muscle use Cardiovascular exam: Present tachycardia Capillary refill: > 3 Seconds Peripheral pulse strength: 1+ Faint Peripheral pulse location: Radial Skin exam: pale Date exam was performed: 05/13/25 Time exam was performed: 16:58 Problem List 1. Sepsis: Status: Acute 2. SBO (small bowel obstruction): Status: Acute 3. RANI (acute kidney injury): Status: Acute 4. Acute encephalopathy: Status: Acute 5. Acute hyperkalemia: Status: Acute 6. Colocutaneous fistula: Status: Acute 7. Sacral ulcer: Status: Acute 8. Chronic suprapubic catheter: Status: Acute 9. Gastroesophageal reflux disease without esophagitis: Status: Chronic 10. Other depression: Status: Chronic 11. SAVAEG on CPAP: Status: Chronic 12. Lymphedema: Status: Chronic
[2025-05-13] MEDS: metoclopramide 5 mg/mL SDV 2 mL IVP ×2 (17:21→23:35)
--- NOTE | 2025-05-13 18:09 | PC.NURSE ---
dr. calzada gave verbal to leave ng tube in place at this time
[2025-05-13 20:00] VITALS: BP 99/73; PULSE 100; RESP 16; TEMP 36.2; O2SAT 94
[2025-05-13 23:35] VITALS: RESP 16
[2025-05-14] VITALS (8 sets, daily range): BP systolic 87–96; BP diastolic 64–70; PULSE 92–107; RESP 16–40; TEMP 36.3–36.8; O2SAT 93–94
[2025-05-14] MEDS: morphine 4 mg/mL SDV 1 mL IVP ×5 (03:34→19:49)
[2025-05-14] MEDS: ondansetron 2 mg/ML SDV 2 mL 4 MG IVP ×2 (05:57→14:21)
[2025-05-14] MEDS: heparin 5,000 unit/mL INJ 1 mL 5000 UNIT SUBCUT (09:32)
[2025-05-14] MEDS: metoclopramide 5 mg/mL SDV 2 mL IVP (09:41)
--- NOTE | 2025-05-14 09:55 | PC.SOCIAL ---
IMM UPDATED IMM dated and initialed, copy given to patient and copy placed in chart.
--- NOTE | 2025-05-14 11:49 | PC.NURSE ---
Unable to get blood pressure, this aide tried twice, and then family asked to just leave her be.
--- NOTE | 2025-05-14 16:03 | P.PN_ITS ---
Subjective 2 Subjective: Patient was seen this morning, she is alert to person, not to place, not to time, family members at bedside, family does report that she has been asking for popsicles Vitals/I&O/Wt Last Vital Signs Temp 97.4 F L 05/14/25 11:29 Pulse 107 H 05/14/25 11:29 Resp 17 05/14/25 14:22 BP 87/64 05/14/25 07:08 Pulse Ox 93 05/14/25 11:29 O2 Del Method Room Air 05/14/25 11:29 05/14/25 05/14/25 05/14/25 06:59 14:59 22:59 Output Total 1000 / 1000 Balance -1000 / -198.334 Weight last 48 hrs Weight 101.741 kg Weight 73.482 kg Weight 101.831 kg Physical Exam 2 Const: COMMON NORMALS: no acute distress ORIENTATION/CONSCIOUSNESS: Yes awake, Yes oriented to person and Yes patient obtunded; not oriented to place, not oriented to time and not confused Resp: COMMON NORMALS: normal respiratory effort, No retractions and No use of accessory muscles AUSCULTATION: rales and wheezes Cardio: COMMON NORMALS: regular rate, regular rhythm, S1 normal heart sound present and S2 normal heart sound present RATE: regular rate RHYTHM: r egular rhythm HEART SOUNDS: S1 normal heart sound present and S2 normal heart sound present GI: OTHER: Abdomen soft, distended, no bowel sounds, no stool in bag Extremity: COMMON NORMALS: no pedal edema Neuro: SENSORIUM/ORIENTATION: Yes oriented to person, No oriented to place and No oriented to time Urinary Catheter Management: Suprapubic: Cath Placed During This Visit: no Reason for Continuing Indwelling Catheter: Chronic Indwelling Urinary Catheter on Admission Data 05/12/25 14:10 05/12/25 14:10 Micro: Microbiology 05/12/25 14:55 Urine Culture - Final Urine,Clean Catch 05/12/25 14:10 Blood Culture - Preliminary Blood Staphylococcus epidermidis A&P Assessment and plan 1. Sepsis: 2. SBO (small bowel obstruction): 3. RANI (acute kidney injury): 4. Acute encephalopathy: 5. Acute hyperkalemia: 6. Colocutaneous fistula: 7. Sacral ulcer: 8. Chronic suprapubic catheter: 9. Gastroesophageal reflux disease without esophagitis: 10. Other depression: 11. SAVAGE on CPAP: 12. Lymphedema: Plan: Patient is admitted to to inpatient hospice High-grade small bowel obstruction CT/CT abdomen pelvis wo con [id number] IMPRESSION: 1. High-grade small bowel obstruction within a left parastomal hernia. Exact transition point is difficult to define given the conglomeration of bowel loops. Again the distal ileum to the terminal ileum is extremely decompressed. 2. Nonobstructing right nephrolithiasis. 3. 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 fasciitis, history of abdominal wall debridement - Colocutaneous fistulas - Colostomy site - General Surgery, not a surgical candidate, [facility] consulted, not an operative candidate, Acute encephalopathy - Sec to uremia, sepsis, septic shock, bowel obstruction, UTI Staph epidermidis bacteremia Sepsis, septic shock - Secondary to small bowel obstruction, sacral ulcer, UTI, concerns for possible intra-abdominal infection Acute renal failure - Secondary to sepsis Uremia Hyponatremia Hyperkalemia Colostomy with complication Sacral ulcer History of DVT with history of bleeding from colostomy, off anticoagulant therapy Increased anion gap metabolic acidosis PDMP PDMP Reviewed: Not Reviewed Attestations 2 Medical Necessity Statement*: Patient is admitted to inpatient hospice Diagnoses Sepsis A41.9 Sepsis acute organ dysfunction status: unspecified Sepsis type: sepsis due to unspecified organism SBO (small bowel obstruction) K56.609 RANI (acute kidney injury) N17.9 Acute encephalopathy G93.40 Acute hyperkalemia E87.5 Colocutaneous fistula K63.2 Sacral ulcer L98.429 Chronic suprapubic catheter Z93.59 Gastroesophageal reflux disease without esophagitis K21.9 Esophagitis presence: without esophagitis Other depression F32.89 Depression Type: other depression SAVAGE on CPAP G47.33 Lymphedema I89.0
--- NOTE | 2025-05-14 21:15 | PC.NURSE ---
Patient without pulse or respirations at 2040, verified by this nurse and MILDRED Sanchez at bedside. Patient son at bedside. [employer], Susu, notified of patient by this nurse at 2049. Dr. Ibanez notified of patient at 2099 by patient care nurse MILDRED Sanchez. [facility] contacted by this nurse at 2104, awaiting call back from [facility] for patient release to home. Post mortem care to be provided by nursing staff when family is ready. Multiple family members now at bedside.
--- NOTE | 2025-05-14 23:15 | PC.NURSE ---
This nurse spoke with MTS coordinator Alexandra at 1042. Alexandra reports that patient is not a candidate for [facility]TS but to continue to hold patient for [facility] at this time.
--- NOTE | 2025-05-14 23:35 | PC.NURSE ---
Post mortem care provided by hospice nurse and CANDI Thomas. All lines and scopolamine removed by hospice nurse, this nurse witnessed disposal of scopolamine patch.
--- NOTE | 2025-05-15 00:17 | PC.NURSE ---
Jazmine with [facility] spoke with this nurse at this time and releases patient to home services.
--- NOTE | 2025-05-15 00:23 | PC.NURSE ---
[facility] to [facility] nursing staff with ETA.
--- NOTE | 2025-05-15 01:34 | PC.NURSE ---
[facility] picked patient up at 0130.
--- NOTE | 2025-05-15 02:34 | P.DES_ITS ---
Discharge Providers DDS Date of Admission: 05/12/25 20:29 Date Summary Completed: 05/15/25 Attending Provider at Admission: Don Ibanez MD Attending Provider at Discharge: Don Ibanez MD Primary Care Provider: Marcus Benson MD Diagnoses Hospital Diagnoses 1. Sepsis: Qualifiers: Sepsis acute organ dysfunction status: unspecified Sepsis type: sepsis due to unspecified organism Qualified Code(s): A41.9 - Sepsis, unspecified organism 2. SBO (small bowel obstruction): 3. RANI (acute kidney injury): 4. Acute encephalopathy: 5. Acute hyperkalemia: 6. Colocutaneous fistula: 7. Sacral ulcer: 8. Chronic suprapubic catheter: 9. Gastroesophageal reflux disease without esophagitis: Qualifiers: Esophagitis presence: without esophagitis Qualified Code(s): K21.9 - Gastro-esophageal reflux disease without esophagitis 10. Other depression: Qualifiers: Depression Type: other depression Qualified Code(s): F32.89 - Other specified depressive episodes 11. SAVAGE on CPAP: 12. Lymphedema: Reason for Visit Reason for Visit low back pain (sent by mu) Brief History: As per the previous notes and the patient/family: Jami Gandhi is a 55 year old female with PMH of necrotizing fasciis, UTI, chronic suprapubic catheter, h/o sacral ulcer and wound, SAVAGE on CPAP, chronic Lymphedema and venous insufficiency, depression, pvd and DVT on chronic anticoagulation and recently held due to hematuria and bleeding from the colostomy side, came to the ER,sent by her primary care provider who had labs drawn on Saturday showing elevated creatinine of 5.5. Of note this patient was recently hospitalized on 04/29 for hyperkalemia, hyponatremia, and acute on chronic renal failure and subsequently was transferred to [facility] due to her reports of abdominal pain and possible bowel obstruction. Family states that while at [facility] she had no instrumentation done as her abdominal pain resolved spontaneously and she was awaiting a transfer to [place] but due to the resolution of the patient eventually was discharged home. This was 6 days ago, she had a follow-up on Saturday where she had the labs drawn, today went to reevaluation appointment where was noted that her creatinine was significantly elevated. patient's son was in the room, who is primary historian, states that the patient has been increasingly lethargic and nauseous, no vomiting or fevers. I further inquired about her status current situation and complications, the family did not want to pursue with any intervention and want to treat her medically. I further asked about hospice care but patient was not sure and just want her mother to be at comfort. The son did not report any recent bleeding episodes or any high-grade fevers. The patient is a poor historian due to her lethargic therefore most of the history was taken from patient's son and the retrospective notes. She underwent further investigation and small bowel obstruction was diagnosed after the CAT scan of abdomen/pelvis was done. Surgery was taken on board and considering her is a poor surgical candidate patient to be kept as comfort care and without any surgical intervention. Thorough discussion was made by the surgeon and the ER physician taking care initially for the patient. And documented to keep the patient at comfort measures. Summary Summary Summary: Patient has been managed after thorough discussion with the family and based on her clinical condition in the best interest with comfort measures. All the management was done after thorough discussion with the family. And agreement was made unanimously without any language barrier after elaboration of all the risk and benefits and complications considering her multiple comorbidities and guarded prognosis. The patient was kept on comfort measures and around 8:41 PM. Confirmation of was done. Patient brainstem reflexes were absent particularly corneal reflexes and pupillary reflex, dilated pupils without any constriction, absent doll's eye reflex and there were no heart sounds on auscultation. May the soul rest in peace Additional Data Advance directives?: No Discharge Plan Discharge Patient Disposition: Condition: Stable DS Attestations Time Spent in /Discharge Care*: greater than 30 min Quality - AMI: AMI present?: No Quality - Stroke: CVA present?: No Quality - VTE: VTE present?: No Deep Vein Thrombosis/Pulmonary Embolism Present on Admission: No Coding Level of Care Code Acute Code for g Fwd Diagnoses Sepsis A41.9 Sepsis acute organ dysfunction status: unspecified Sepsis type: sepsis due to unspecified organism SBO (small bowel obstruction) K56.609 RANI (acute kidney injury) N17.9 Acute encephalopathy G93.40 Acute hyperkalemia E87.5 Colocutaneous fistula K63.2 Sacral ulcer L98.429 Chronic suprapubic catheter Z93.59 Gastroesophageal reflux disease without esophagitis K21.9 Esophagitis presence: without esophagitis Other depression F32.89 Depression Type: other depression SAVAGE on CPAP G47.33 Lymphedema I89.0
== END 2025-05-14 20:41 | disposition expired | DRG 871 ==
LOC: ER 19:36 → MEDSURG 21:40
PROVIDERS: Admitting Provider Student in an Organized Health Care Education/Training Program; Emergency Provider Physician Assistant; PCP Family Medicine; Visit Provider Family Medicine
DX: A41.9 Sepsis, unspecified organism (principal); G93.41 Metabolic encephalopathy; R65.21 Severe sepsis with septic shock; K56.609 Unspecified intestinal obstruction, unspecified as to partial versus complete obstruction; N17.9 Acute kidney failure, unspecified; K63.2 Fistula of intestine; Z68.41 Body mass index [BMI] 40.0-44.9, adult; G82.20 Paraplegia, unspecified; E87.1 Hypo-osmolality and hyponatremia; E87.5 Hyperkalemia; L89.159 Pressure ulcer of sacral region, unspecified stage; Z96.0 Presence of urogenital implants; K21.9 Gastro-esophageal reflux disease without esophagitis; F32.A Depression, unspecified; G47.33 Obstructive sleep apnea (adult) (pediatric); I89.0 Lymphedema, not elsewhere classified; I73.9 Peripheral vascular disease, unspecified; B95.8 Unspecified staphylococcus as the cause of diseases classified elsewhere; E66.01 Morbid (severe) obesity due to excess calories; N30.20 Other chronic cystitis without hematuria; N31.9 Neuromuscular dysfunction of bladder, unspecified; N18.9 Chronic kidney disease, unspecified; Z99.89 Dependence on other enabling machines and devices; Z51.5 Encounter for palliative care; Z79.01 Long term (current) use of anticoagulants; Z93.3 Colostomy status; Z87.440 Personal history of urinary (tract) infections; Z86.718 Personal history of other venous thrombosis and embolism
CPT/HCPCS: 36415; 36600; 71045; 74018; 74176; 80051; 80053; 81001; 82330; 82805; 83605; 83735; 83880; 84100; 85025; 85610; 85651; 85730; 86140; 87040; 87077; 87086; 87150; 87186; 87205; 93005; 96365; 96372; 96375; 99291; 99292; J0692; J1644; J2270; J2405; J2765; J3490; J7030; J7120; J9999